=== PATIENT | female | born 1945 | race Caucasian/White ===

== ENCOUNTER 2023-03-17 15:16 | Emergency (ER) | payer MEDICARE, SELFPAY ==
[2023-03-17] VITALS (29 sets, daily range): BP systolic 142–215; BP diastolic 79–91; PULSE 64–89; RESP 13–26; TEMP 36.6; O2SAT 97–99; BMI 30.5
--- NOTE | 2023-03-17 15:42 | ED_ITS ---
Documented by User: Victoria Estrella MD 03/18/23 07:24 HPI - General Adult General Chief complaint: Headache Stated complaint: HEADACHE Time Seen by Provider: 03/17/23 15:42 Source: patient Mode of arrival: ambulance Limitations: no limitations Related Data Home Medications Medication Instructions Recorded Confirmed allopurinol 300 mg tablet 300 mg PO DAILY 03/17/23 03/17/23 atorvastatin 80 mg tablet 80 mg PO DAILY 03/17/23 03/17/23 carvedilol 25 mg tablet 25 mg PO Q12H 03/17/23 03/17/23 furosemide 20 mg tablet 20 mg PO DAILY 03/17/23 03/17/23 insulin 50 units subcut BID 03/17/23 03/17/23 insulin aspart U-100 100 unit/mL 12 unit subcut DAILY 03/17/23 03/17/23 (3 mL) subcutaneous pen (Novolog FlexPen U-100 Insulin aspart) levothyroxine 125 mcg tablet 125 mcg PO DAILY 03/17/23 03/17/23 liothyronine 5 mcg tablet 5 mcg PO BID 03/17/23 03/17/23 magnesium oxide 400 mg (241.3 mg 400 mg PO TID 03/17/23 03/17/23 magnesium) tablet pantoprazole 40 mg tablet,delayed 40 mg PO BID 03/17/23 03/17/23 release phenazopyridine 200 mg tablet 200 mg PO BID 03/17/23 03/17/23 Previous Rx's Medication Instructions Recorded hydrochlorothiazide 25 mg tablet 25 mg PO DAILY #10 tabs 03/17/23 Allergies Allergy/AdvReac Type Severity Reaction Status Date / Time amoxicillin [From Augmentin] Allergy Rash Verified 03/17/23 16:03 clavulanic acid Allergy Rash Verified 03/17/23 16:03 [From Augmentin] sulfamethoxazole Allergy Rash Verified 03/17/23 16:03 [From Bactrim] trimethoprim [From Bactrim] Allergy Rash Verified 03/17/23 16:03 NORVASC Allergy Unknown Uncoded 03/17/23 16:03 CT dye Allergy Unconscious Uncoded 03/17/23 16:03 PFSH PFSH Social History Smoking status: Former smoker Exam Constitutional Vital Signs - 24 hr 03/17/23 15:36 03/17/23 16:25 03/17/23 16:30 Temperature 98 F Pulse Rate 67 64 Pulse Rate [Monitor] 68 Respiratory Rate 20 17 15 Blood Pressure Blood Pressure [Left Arm] 142/80 H Pulse Oximetry 99 Oxygen Delivery Method Room Air 03/17/23 16:40 03/17/23 16:50 03/17/23 17:00 Temperature Pulse Rate 67 66 67 Pulse Rate [Monitor] Respiratory Rate 13 17 21 Blood Pressure Blood Pressure [Left Arm] Pulse Oximetry Oxygen Delivery Method 03/17/23 17:10 03/17/23 17:20 03/17/23 17:30 Temperature Pulse Rate 68 66 68 Pulse Rate [Monitor] Respiratory Rate 17 20 14 Blood Pressure Blood Pressure [Left Arm] Pulse Oximetry Oxygen Delivery Method 03/17/23 17:40 03/17/23 17:50 03/17/23 18:00 Temperature Pulse Rate 72 89 77 Pulse Rate [Monitor] Respiratory Rate 26 H 18 26 H Blood Pressure Blood Pressure [Left Arm] Pulse Oximetry 98 97 Oxygen Delivery Method 03/17/23 18:10 03/17/23 20:20 03/17/23 18:20 Temperature Pulse Rate 72 77 Pulse Rate [Monitor] Respiratory Rate 21 17 Blood Pressure 190/86 H Blood Pressure [Left Arm] Pulse Oximetry 97 97 Oxygen Delivery Method 03/17/23 18:30 03/17/23 18:31 03/17/23 19:01 Temperature Pulse Rate 77 78 78 Pulse Rate [Monitor] Respiratory Rate 17 16 18 Blood Pressure 215/79 H 200/91 H Blood Pressure [Left Arm] Pulse Oximetry 97 98 97 Oxygen Delivery Method 03/17/23 19:31 03/17/23 20:02 03/17/23 20:10 Temperature Pulse Rate 72 73 71 Pulse Rate [Monitor] Respiratory Rate 16 18 13 Blood Pressure 204/83 H Blood Pressure [Left Arm] Pulse Oximetry Oxygen Delivery Method 03/17/23 21:33 03/17/23 20:20 03/17/23 20:30 Temperature Pulse Rate 70 68 Pulse Rate [Monitor] Respiratory Rate 18 14 Blood Pressure 178/80 H Blood Pressure [Left Arm] Pulse Oximetry Oxygen Delivery Method 03/17/23 20:40 03/17/23 20:50 03/17/23 21:00 Temperature Pulse Rate 68 67 70 Pulse Rate [Monitor] Respiratory Rate 14 14 13 Blood Pressure Blood Pressure [Left Arm] Pulse Oximetry Oxygen Delivery Method 03/17/23 21:10 03/17/23 21:20 03/17/23 21:30 Temperature Pulse Rate 68 68 70 Pulse Rate [Monitor] Respiratory Rate 16 17 15 Blood Pressure Blood Pressure [Left Arm] Pulse Oximetry Oxygen Delivery Method Course Vital Signs Vital signs: Vital Signs Temperature 98 F 03/17/23 15:36 Pulse Rate 68 03/17/23 15:36 Respiratory Rate 20 03/17/23 15:36 Blood Pressure 142/80 H 03/17/23 15:36 Pulse Oximetry 99 03/17/23 15:36 Oxygen Delivery Method Room Air 03/17/23 15:36 Temperature 98 F 03/17/23 15:36 Pulse Rate 70 03/17/23 21:30 Respiratory Rate 15 03/17/23 21:30 Blood Pressure 178/80 H 03/17/23 21:33 Pulse Oximetry 97 03/17/23 19:01 Oxygen Delivery Method Room Air 03/17/23 15:36 Medical Decision Making Lab Data Labs: Lab Results 03/17/23 03/17/23 03/17/23 Range/Units 16:24 17:00 17:43 WBC 6.0 (4.0-11.0) 10^3/uL RBC 3.05 L (4.20-5.40) 10^6/uL Hgb 9.6 L (12.0-16.0) g/dL Hct 28.8 L (36.0-48.0) % MCV 94.4 (81.0-99.0) fL MCH 31.5 (26.7-34.0) pg MCHC 33.3 (29.9-35.2) g/dL RDW 15.8 H (11.0-15.0) % Plt Count 209 (150-450) 10^3/uL MPV 9.6 (9.5-13.5) fL Neut % (Auto) 52.7 (43.0-75.0) % Lymph % (Auto) 32.6 (20.5-60.0) % Webb % (Auto) 11.2 (1.7-12.0) % Eos % (Auto) 2.7 (0.9-7.0) % Baso % (Auto) 0.5 (0.2-2.0) % Neut # (Auto) 3.2 (1.4-6.5) 10^3/uL Lymph # (Auto) 2.0 (1.2-3.8) 10^3/uL Webb # (Auto) 0.7 (0.3-0.8) 10^3/uL Eos # (Auto) 0.2 (0.0-0.7) 10^3/uL Baso # (Auto) 0.0 (0.0-0.1) 10^3/uL Abs Immat Gran (auto) 0.02 (0.00-0.03) 10^3/uL Imm/Tot Granulo (auto) 0.3 (0.0-0.5) % ESR 29 (<=30) mm/hr Sodium 136 (136-145) mmol/L Potassium 5.6 H (3.5-5.1) mmol/L Chloride 104 (98-107) mmol/L Carbon Dioxide 23.9 (21.0-32.0) mmol/L Anion Gap 13.7 BUN 56.0 H (7.0-18.0) mg/dL Creatinine 2.49 H (0.55-1.02) mg/dL Est GFR ( Amer) 23 L (>=60) Est GFR (Non-Af Amer) 19 L (>=60) BUN/Creatinine Ratio 22.5 Glucose 112 H (74-106) mg/dL Calcium 9.6 (8.5-10.1) mg/dL Total Bilirubin 0.5 (0.2-1.0) mg/dL AST 17 (15-37) U/L ALT 30 (14-59) U/L Alkaline Phosphatase 88 (46-116) U/L C-Reactive Protein <2.0 H (<=1.0) mg/dL Total Protein 7.8 (6.4-8.2) g/dL Albumin 3.9 (3.4-5.0) g/dL Globulin 3.9 g/dL Albumin/Globulin Ratio 1.0 Urine Color Yellow (YELLOW) Urine Clarity Clear (CLEAR) Urine pH 5.5 (5.0-9.0) Ur Specific [place] 1.020 (1.005-1.025) Urine Protein Negative (NEG/TRACE) mg/dL Urine Glucose (UA) Negative (NEGATIVE) mg/dL Urine Ketones Negative (NEGATIVE) mg/dL Urine Occult Blood Negative (NEGATIVE) Urine Nitrite Negative (NEGATIVE) Urine Bilirubin Negative (NEGATIVE) Urine Urobilinogen 0.2 (0.2-1.0) EU/dL Ur Leukocyte Esterase Negative (NEGATIVE) POC Glucose 101 (74-106) mg/dL 03/17/23 03/17/23 03/17/23 Range/Units 20:17 21:00 21:31 WBC (4.0-11.0) 10^3/uL RBC (4.20-5.40) 10^6/uL Hgb (12.0-16.0) g/dL Hct (36.0-48.0) % MCV (81.0-99.0) fL MCH (26.7-34.0) pg MCHC (29.9-35.2) g/dL RDW (11.0-15.0) % Plt Count (150-450) 10^3/uL MPV (9.5-13.5) fL Neut % (Auto) (43.0-75.0) % Lymph % (Auto) (20.5-60.0) % Webb % (Auto) (1.7-12.0) % Eos % (Auto) (0.9-7.0) % Baso % (Auto) (0.2-2.0) % Neut # (Auto) (1.4-6.5) 10^3/uL Lymph # (Auto) (1.2-3.8) 10^3/uL Webb # (Auto) (0.3-0.8) 10^3/uL Eos # (Auto) (0.0-0.7) 10^3/uL Baso # (Auto) (0.0-0.1) 10^3/uL Abs Immat Gran (auto) (0.00-0.03) 10^3/uL Imm/Tot Granulo (auto) (0.0-0.5) % ESR (<=30) mm/hr Sodium (136-145) mmol/L Potassium 4.9 (3.5-5.1) mmol/L Chloride (98-107) mmol/L Carbon Dioxide (21.0-32.0) mmol/L Anion Gap BUN 52.0 H (7.0-18.0) mg/dL Creatinine 2.49 H (0.55-1.02) mg/dL Est GFR ( Amer) 23 L (>=60) Est GFR (Non-Af Amer) 19 L (>=60) BUN/Creatinine Ratio Glucose (74-106) mg/dL Calcium (8.5-10.1) mg/dL Total Bilirubin (0.2-1.0) mg/dL AST (15-37) U/L ALT (14-59) U/L Alkaline Phosphatase (46-116) U/L C-Reactive Protein (<=1.0) mg/dL Total Protein (6.4-8.2) g/dL Albumin (3.4-5.0) g/dL Globulin g/dL Albumin/Globulin Ratio Urine Color (YELLOW) Urine Clarity (CLEAR) Urine pH (5.0-9.0) Ur Specific [place] (1.005-1.025) Urine Protein (NEG/TRACE) mg/dL Urine Glucose (UA) (NEGATIVE) mg/dL Urine Ketones (NEGATIVE) mg/dL Urine Occult Blood (NEGATIVE) Urine Nitrite (NEGATIVE) Urine Bilirubin (NEGATIVE) Urine Urobilinogen (0.2-1.0) EU/dL Ur Leukocyte Esterase (NEGATIVE) POC Glucose 200 H 167 H (74-106) mg/dL Discharge Plan Discharge Chief Complaint: Headache Clinical Impression: Acute kidney failure, Headache, Acute hyperkalemia Patient Disposition: Home, Self-Care Time of Disposition Decision: 21:45 Condition: Good Mode of Transportation: Private Vehicle Prescriptions / Home Meds: New hydrochlorothiazide 25 mg tablet 25 mg PO DAILY Qty: 10 0RF Discontinued hydrochlorothiazide 12.5 mg tablet 12.5 mg PO DAILY lisinopril 10 mg tablet 10 mg PO DAILY No Action allopurinol 300 mg tablet 300 mg PO DAILY atorvastatin 80 mg tablet 80 mg PO DAILY carvedilol 25 mg tablet 25 mg PO Q12H furosemide 20 mg tablet 20 mg PO DAILY insulin aspart U-100 [Novolog FlexPen U-100 Insulin] 100 unit/mL (3 mL) insulin pen 12 unit SUBCUT DAILY Rx Instructions: 12 units am, 16units at lunch and 22 units in pm insulin 50 units 50 units subcut BID Rx Instructions: 50 units BID levothyroxine 125 mcg tablet 125 mcg PO DAILY liothyronine 5 mcg tablet 5 mcg PO BID magnesium oxide 400 mg (241.3 mg magnesium) tablet 400 mg PO TID pantoprazole 40 mg tablet,delayed release (DR/EC) 40 mg PO BID phenazopyridine 200 mg tablet 200 mg PO BID Instructions: Acute Kidney Injury (DC), Hyperkalemia (ED) Stand Alone Forms: Portal Instructions Referrals: Merrick Rubi MD [Primary Care Provider] - As soon as possible Discharge Date/Time: 03/17/23 22:01 Documented by User: Fozia Montgomery MD 03/18/23 01:58 HPI - General Adult General Chief complaint: Headache Stated complaint: HEADACHE Time Seen by Provider: 03/17/23 15:42 Related Data Home Medications Medication Instructions Recorded Confirmed allopurinol 300 mg tablet 300 mg PO DAILY 03/17/23 03/17/23 atorvastatin 80 mg tablet 80 mg PO DAILY 03/17/23 03/17/23 carvedilol 25 mg tablet 25 mg PO Q12H 03/17/23 03/17/23 furosemide 20 mg tablet 20 mg PO DAILY 03/17/23 03/17/23 insulin 50 units subcut BID 03/17/23 03/17/23 insulin aspart U-100 100 unit/mL 12 unit subcut DAILY 03/17/23 03/17/23 (3 mL) subcutaneous pen (Novolog FlexPen U-100 Insulin aspart) levothyroxine 125 mcg tablet 125 mcg PO DAILY 03/17/23 03/17/23 liothyronine 5 mcg tablet 5 mcg PO BID 03/17/23 03/17/23 magnesium oxide 400 mg (241.3 mg 400 mg PO TID 03/17/23 03/17/23 magnesium) tablet pantoprazole 40 mg tablet,delayed 40 mg PO BID 03/17/23 03/17/23 release phenazopyridine 200 mg tablet 200 mg PO BID 03/17/23 03/17/23 Previous Rx's Medication Instructions Recorded hydrochlorothiazide 25 mg tablet 25 mg PO DAILY #10 tabs 03/17/23 Allergies Allergy/AdvReac Type Severity Reaction Status Date / Time amoxicillin [From Augmentin] Allergy Rash Verified 03/17/23 16:03 clavulanic acid Allergy Rash Verified 03/17/23 16:03 [From Augmentin] sulfamethoxazole Allergy Rash Verified 03/17/23 16:03 [From Bactrim] trimethoprim [From Bactrim] Allergy Rash Verified 03/17/23 16:03 NORVASC Allergy Unknown Uncoded 03/17/23 16:03 CT dye Allergy Unconscious Uncoded 03/17/23 16:03 PFSH PFSH Social History Smoking status: Former smoker Exam Constitutional Vital Signs - 24 hr 03/17/23 15:36 03/17/23 16:25 03/17/23 16:30 Temperature 98 F Pulse Rate 67 64 Pulse Rate [Monitor] 68 Respiratory Rate 20 17 15 Blood Pressure Blood Pressure [Left Arm] 142/80 H Pulse Oximetry 99 Oxygen Delivery Method Room Air 03/17/23 16:40 03/17/23 16:50 03/17/23 17:00 Temperature Pulse Rate 67 66 67 Pulse Rate [Monitor] Respiratory Rate 13 17 21 Blood Pressure Blood Pressure [Left Arm] Pulse Oximetry Oxygen Delivery Method 03/17/23 17:10 03/17/23 17:20 03/17/23 17:30 Temperature Pulse Rate 68 66 68 Pulse Rate [Monitor] Respiratory Rate 17 20 14 Blood Pressure Blood Pressure [Left Arm] Pulse Oximetry Oxygen Delivery Method 03/17/23 17:40 03/17/23 17:50 03/17/23 18:00 Temperature Pulse Rate 72 89 77 Pulse Rate [Monitor] Respiratory Rate 26 H 18 26 H Blood Pressure Blood Pressure [Left Arm] Pulse Oximetry 98 97 Oxygen Delivery Method 03/17/23 18:10 03/17/23 20:20 03/17/23 18:20 Temperature Pulse Rate 72 77 Pulse Rate [Monitor] Respiratory Rate 21 17 Blood Pressure 190/86 H Blood Pressure [Left Arm] Pulse Oximetry 97 97 Oxygen Delivery Method 03/17/23 18:30 03/17/23 18:31 03/17/23 19:01 Temperature Pulse Rate 77 78 78 Pulse Rate [Monitor] Respiratory Rate 17 16 18 Blood Pressure 215/79 H 200/91 H Blood Pressure [Left Arm] Pulse Oximetry 97 98 97 Oxygen Delivery Method 03/17/23 19:31 03/17/23 20:02 03/17/23 20:10 Temperature Pulse Rate 72 73 71 Pulse Rate [Monitor] Respiratory Rate 16 18 13 Blood Pressure 204/83 H Blood Pressure [Left Arm] Pulse Oximetry Oxygen Delivery Method 03/17/23 21:33 03/17/23 20:20 03/17/23 20:30 Temperature Pulse Rate 70 68 Pulse Rate [Monitor] Respiratory Rate 18 14 Blood Pressure 178/80 H Blood Pressure [Left Arm] Pulse Oximetry Oxygen Delivery Method 03/17/23 20:40 03/17/23 20:50 03/17/23 21:00 Temperature Pulse Rate 68 67 70 Pulse Rate [Monitor] Respiratory Rate 14 14 13 Blood Pressure Blood Pressure [Left Arm] Pulse Oximetry Oxygen Delivery Method 03/17/23 21:10 03/17/23 21:20 03/17/23 21:30 Temperature Pulse Rate 68 68 70 Pulse Rate [Monitor] Respiratory Rate 16 17 15 Blood Pressure Blood Pressure [Left Arm] Pulse Oximetry Oxygen Delivery Method Course Vital Signs Vital signs: Vital Signs Temperature 98 F 03/17/23 15:36 Pulse Rate 68 03/17/23 15:36 Respiratory Rate 20 03/17/23 15:36 Blood Pressure 142/80 H 03/17/23 15:36 Pulse Oximetry 99 03/17/23 15:36 Oxygen Delivery Method Room Air 03/17/23 15:36 Temperature 98 F 03/17/23 15:36 Pulse Rate 70 03/17/23 21:30 Respiratory Rate 15 03/17/23 21:30 Blood Pressure 178/80 H 03/17/23 21:33 Pulse Oximetry 97 03/17/23 19:01 Oxygen Delivery Method Room Air 03/17/23 15:36 Medical Decision Making [facility] Narrative Medical decision making narrative: Dr Montgomery : pt care trasnferred to me at 7am from Dr Estrella pt potassium improved to 4.9 as well as her BP creat is still 2.49 pt lisinopril stopped and HTZ doubled to 25 mg po daily pt will measure her BP daily and keep a tract of it and will follow up with Dr Rubi within a week for creat and potassium check pt will come back today and continued symptoms The patient is to followup with primary care physician in next 2-3 days or to return to the emergency department should any of the signs or symptoms worsen or new symptoms develop. The patient agrees with the following Diagnosis and Treatment plan and the patient will be discharged home. At this time the patient is without objective evidence of an acute process requiring hospitalization or inpatient management. The patient has remained hemodynamically stable. No additional indication for emergent studies at this time. I answered all questions. Discussed discharge instructions including standard anticipatory guidance and what should prompt a return to the emergency department, including if they get worse are not getting better or develops any new or concerning symptoms. I've given them specific time frame in which to follow-up, and who to follow-up with. The patient demonstrates understanding. Patient is nontoxic and stable for discharge with outpatient follow-up. Lab Data Labs: Lab Results 03/17/23 03/17/23 03/17/23 Range/Units 16:24 17:00 17:43 WBC 6.0 (4.0-11.0) 10^3/uL RBC 3.05 L (4.20-5.40) 10^6/uL Hgb 9.6 L (12.0-16.0) g/dL Hct 28.8 L (36.0-48.0) % MCV 94.4 (81.0-99.0) fL MCH 31.5 (26.7-34.0) pg MCHC 33.3 (29.9-35.2) g/dL RDW 15.8 H (11.0-15.0) % Plt Count 209 (150-450) 10^3/uL MPV 9.6 (9.5-13.5) fL Neut % (Auto) 52.7 (43.0-75.0) % Lymph % (Auto) 32.6 (20.5-60.0) % Webb % (Auto) 11.2 (1.7-12.0) % Eos % (Auto) 2.7 (0.9-7.0) % Baso % (Auto) 0.5 (0.2-2.0) % Neut # (Auto) 3.2 (1.4-6.5) 10^3/uL Lymph # (Auto) 2.0 (1.2-3.8) 10^3/uL Webb # (Auto) 0.7 (0.3-0.8) 10^3/uL Eos # (Auto) 0.2 (0.0-0.7) 10^3/uL Baso # (Auto) 0.0 (0.0-0.1) 10^3/uL Abs Immat Gran (auto) 0.02 (0.00-0.03) 10^3/uL Imm/Tot Granulo (auto) 0.3 (0.0-0.5) % ESR 29 (<=30) mm/hr Sodium 136 (136-145) mmol/L Potassium 5.6 H (3.5-5.1) mmol/L Chloride 104 (98-107) mmol/L Carbon Dioxide 23.9 (21.0-32.0) mmol/L Anion Gap 13.7 BUN 56.0 H (7.0-18.0) mg/dL Creatinine 2.49 H (0.55-1.02) mg/dL Est GFR ( Amer) 23 L (>=60) Est GFR (Non-Af Amer) 19 L (>=60) BUN/Creatinine Ratio 22.5 Glucose 112 H (74-106) mg/dL Calcium 9.6 (8.5-10.1) mg/dL Total Bilirubin 0.5 (0.2-1.0) mg/dL AST 17 (15-37) U/L ALT 30 (14-59) U/L Alkaline Phosphatase 88 (46-116) U/L C-Reactive Protein <2.0 H (<=1.0) mg/dL Total Protein 7.8 (6.4-8.2) g/dL Albumin 3.9 (3.4-5.0) g/dL Globulin 3.9 g/dL Albumin/Globulin Ratio 1.0 Urine Color Yellow (YELLOW) Urine Clarity Clear (CLEAR) Urine pH 5.5 (5.0-9.0) Ur Specific [place] 1.020 (1.005-1.025) Urine Protein Negative (NEG/TRACE) mg/dL Urine Glucose (UA) Negative (NEGATIVE) mg/dL Urine Ketones Negative (NEGATIVE) mg/dL Urine Occult Blood Negative (NEGATIVE) Urine Nitrite Negative (NEGATIVE) Urine Bilirubin Negative (NEGATIVE) Urine Urobilinogen 0.2 (0.2-1.0) EU/dL Ur Leukocyte Esterase Negative (NEGATIVE) POC Glucose 101 (74-106) mg/dL 03/17/23 03/17/23 03/17/23 Range/Units 20:17 21:00 21:31 WBC (4.0-11.0) 10^3/uL RBC (4.20-5.40) 10^6/uL Hgb (12.0-16.0) g/dL Hct (36.0-48.0) % MCV (81.0-99.0) fL MCH (26.7-34.0) pg MCHC (29.9-35.2) g/dL RDW (11.0-15.0) % Plt Count (150-450) 10^3/uL MPV (9.5-13.5) fL Neut % (Auto) (43.0-75.0) % Lymph % (Auto) (20.5-60.0) % Webb % (Auto) (1.7-12.0) % Eos % (Auto) (0.9-7.0) % Baso % (Auto) (0.2-2.0) % Neut # (Auto) (1.4-6.5) 10^3/uL Lymph # (Auto) (1.2-3.8) 10^3/uL Webb # (Auto) (0.3-0.8) 10^3/uL Eos # (Auto) (0.0-0.7) 10^3/uL Baso # (Auto) (0.0-0.1) 10^3/uL Abs Immat Gran (auto) (0.00-0.03) 10^3/uL Imm/Tot Granulo (auto) (0.0-0.5) % ESR (<=30) mm/hr Sodium (136-145) mmol/L Potassium 4.9 (3.5-5.1) mmol/L Chloride (98-107) mmol/L Carbon Dioxide (21.0-32.0) mmol/L Anion Gap BUN 52.0 H (7.0-18.0) mg/dL Creatinine 2.49 H (0.55-1.02) mg/dL Est GFR ( Amer) 23 L (>=60) Est GFR (Non-Af Amer) 19 L (>=60) BUN/Creatinine Ratio Glucose (74-106) mg/dL Calcium (8.5-10.1) mg/dL Total Bilirubin (0.2-1.0) mg/dL AST (15-37) U/L ALT (14-59) U/L Alkaline Phosphatase (46-116) U/L C-Reactive Protein (<=1.0) mg/dL Total Protein (6.4-8.2) g/dL Albumin (3.4-5.0) g/dL Globulin g/dL Albumin/Globulin Ratio Urine Color (YELLOW) Urine Clarity (CLEAR) Urine pH (5.0-9.0) Ur Specific [place] (1.005-1.025) Urine Protein (NEG/TRACE) mg/dL Urine Glucose (UA) (NEGATIVE) mg/dL Urine Ketones (NEGATIVE) mg/dL Urine Occult Blood (NEGATIVE) Urine Nitrite (NEGATIVE) Urine Bilirubin (NEGATIVE) Urine Urobilinogen (0.2-1.0) EU/dL Ur Leukocyte Esterase (NEGATIVE) POC Glucose 200 H 167 H (74-106) mg/dL Discharge Plan Discharge Chief Complaint: Headache Clinical Impression: Acute kidney failure, Headache, Acute hyperkalemia Patient Disposition: Home, Self-Care Time of Disposition Decision: 21:45 Condition: Good Mode of Transportation: Private Vehicle Prescriptions / Home Meds: New hydrochlorothiazide 25 mg tablet 25 mg PO DAILY Qty: 10 0RF Discontinued hydrochlorothiazide 12.5 mg tablet 12.5 mg PO DAILY lisinopril 10 mg tablet 10 mg PO DAILY No Action allopurinol 300 mg tablet 300 mg PO DAILY atorvastatin 80 mg tablet 80 mg PO DAILY carvedilol 25 mg tablet 25 mg PO Q12H furosemide 20 mg tablet 20 mg PO DAILY insulin aspart U-100 [Novolog FlexPen U-100 Insulin] 100 unit/mL (3 mL) insulin pen 12 unit SUBCUT DAILY Rx Instructions: 12 units am, 16units at lunch and 22 units in pm insulin 50 units 50 units subcut BID Rx Instructions: 50 units BID levothyroxine 125 mcg tablet 125 mcg PO DAILY liothyronine 5 mcg tablet 5 mcg PO BID magnesium oxide 400 mg (241.3 mg magnesium) tablet 400 mg PO TID pantoprazole 40 mg tablet,delayed release (DR/EC) 40 mg PO BID phenazopyridine 200 mg tablet 200 mg PO BID Instructions: Acute Kidney Injury (DC), Hyperkalemia (ED) Stand Alone Forms: Portal Instructions Referrals: Merrick Rubi MD [Primary Care Provider] - As soon as possible Discharge Date/Time: 03/17/23 22:01
--- NOTE | 2023-03-17 16:09 | CT_ITS ---
[place] [id number] Patient Name: KYLAH BERGER MRN: [id number] date: 1945 Sex: F Assigned Patient Location: ER Current Patient Location: ER Accession/Order Number: [id number] Exam Date: 03/17/2023 16:43 Report Date: 03/17/2023 17:12 At the request of: VERNA GUAJARDO Procedure: CT head/brain wo con EXAMINATION: CT head/brain wo con, 03/17/2023 4:43 PM EDT HISTORY: Pain COMPARISON: None. TECHNIQUE: CT scan of the head was performed without IV contrast. CT dose reduction technique was used, including Automated Exposure Control. FINDINGS: BRAIN PARENCHYMA/CSF SPACES: Ventricles are normal in size for age. There is no hemorrhage, mass effect or midline shift. Mild low attenuation in the white matter consistent with chronic microvascular ischemia. PARANASAL SINUSES: Clear. SKULL BASE AND CALVARIUM: Normal. EXTRACRANIAL SOFT TISSUES: Normal. IMPRESSION: No acute intracranial findings. Electronically authenticated by: SINDI SUNSHINE Date: 03/17/2023 17:12
--- NOTE | 2023-03-17 16:10 | ECG_ITS ---
[facility] Test Date: 2023-03-17 Pat Name: KYLAH BERGER Department: Room: - Gender: Female [employer]: : 1945 Requested By: DHRUV GUTIERRES Order Number: [id number] Reading MD: DHRUV GUTIERRES Measurements Intervals [place] Rate: 65 P: 57 ID: [id number] QRS: 25 QRSD: 86 T: 70 QT: 408 QTc: 420 Interpretive Statements 1100 Sinus rhythm 4068 Nonspecific [place] abnormality 9130 borderline ECG No previous ECG available for comparison Electronically Signed On 03-18-2023 6:23:33 EDT by DHRUV GUTIERRES
[2023-03-17 16:39] LABS: Basophils Percent Auto 0.5 % (0.2-2.0); Eosinophils Absolute Auto 0.2 10^3/uL (0.0-0.7); Eosinophils Percent Auto 2.7 % (0.9-7.0); Hematocrit 28.8 % (36.0-48.0); Hemoglobin 9.6 g/dL (12.0-16.0); Immature Granulocytes Abs Auto 0.02 10^3/uL (0.00-0.03); Immature Granulocytes Pct Auto 0.3 % (0.0-0.5); Lymphocytes Percent Auto 32.6 % (20.5-60.0); Mean Corpuscular HGB Conc 33.3 g/dL (29.9-35.2); Mean Corpuscular Hemoglobin 31.5 pg (26.7-34.0); Mean Corpuscular Volume 94.4 fL (81.0-99.0); Mean Platelet Volume 9.6 fL (9.5-13.5); Monocytes Absolute Auto 0.7 10^3/uL (0.3-0.8); Monocytes Percent Auto 11.2 % (1.7-12.0); Neutrophils Absolute Auto 3.2 10^3/uL (1.4-6.5); Neutrophils Percent Auto 52.7 % (43.0-75.0); Platelet Count 209 10^3/uL (150-450); Red Blood Count 3.05 10^6/uL (4.20-5.40); Red Cell Distribution Width 15.8 % (11.0-15.0)
[2023-03-17 16:49] LABS: Erythrocyte Sedimentation Rate 29 mm/hr (<=30)
[2023-03-17 16:53] LABS: Alanine Aminotransferase 30 U/L (14-59); Albumin Level 3.9 g/dL (3.4-5.0); Alkaline Phosphatase 88 U/L (46-116); Anion Gap 13.7; Aspartate Amino Transferase 17 U/L (15-37); BUN Creatinine Ratio 22.5; Bilirubin Total 0.5 mg/dL (0.2-1.0); Calcium 9.6 mg/dL (8.5-10.1); Carbon Dioxide 23.9 mmol/L (21.0-32.0); Chloride 104 mmol/L (98-107); Estimated GFR (African America 23 (>=60); Estimated GFR (Non-African Ame 19 (>=60); Globulin 3.9 g/dL; Glucose 112 mg/dL (74-106); Potassium 5.6 mmol/L (3.5-5.1); Sodium 136 mmol/L (136-145); Total Protein 7.8 g/dL (6.4-8.2)
[2023-03-17 16:55] LABS: C Reactive Protein <2.0 mg/dL (<=1.0)
[2023-03-17] MEDS: 0.9 % SODIUM CHLORIDE 1,000 ML 999 ML IV (17:00)
--- NOTE | 2023-03-17 17:36 | PC.NURSE ---
pt rates ZHONG a 06/16 and notified
[2023-03-17 17:46] LABS: Glucometer 101 mg/dL (74-106)
[2023-03-17 17:49] LABS: Bilirubin Urine NEGATIVE (NEGATIVE); Blood Urine NEGATIVE (NEGATIVE); Clarity Urine CLEAR (CLEAR); Color Urine YELLOW (YELLOW); Glucose Urine UA NEGATIVE (NEGATIVE); Ketones Urine NEGATIVE (NEGATIVE); Leukocyte Esterase Urine NEGATIVE (NEGATIVE); Nitrite Urine NEGATIVE (NEGATIVE); Protein Urine NEGATIVE (NEG/TRACE); Urobilinogen Urine 0.2 EU/dL (0.2-1.0); pH Urine 5.5 (5.0-9.0)
[2023-03-17 18:01] LABS: Urine Microscopic Indicated NO
[2023-03-17] MEDS: INSULIN REGULAR 300 UNITS/3 ML 10 UNIT INJ (19:19)
[2023-03-17] MEDS: DEXTROSE 50 %-WATER 25 GM/50 ML SYRINGE IV (19:19)
[2023-03-17] MEDS: DEXAMETHASONE SODIUM PHOSPHATE 10 MG/ML VIAL IV (19:19)
[2023-03-17] MEDS: ACETAMINOPHEN 500 MG TABLET 1000 MG PO (19:19)
[2023-03-17] MEDS: SODIUM POLYSTYRENE SULFON/SORB 15 GM/60 ML ORAL.SUSP 30 GM PO (19:39)
[2023-03-17 20:19] LABS: Glucometer 200 mg/dL (74-106)
[2023-03-17 21:23] LABS: Potassium 4.9 mmol/L (3.5-5.1)
[2023-03-17 21:33] LABS: Glucometer 167 mg/dL (74-106)
[2023-03-17 21:45] LABS: Estimated GFR (African America 23 (>=60); Estimated GFR (Non-African Ame 19 (>=60)
--- NOTE | 2023-04-19 09:47 | ED.GENADUL1 ---
HPI - General Adult General Chief complaint: Headache Stated complaint: HEADACHE Time Seen by Provider: 03/17/23 15:42 Source: patient Mode of arrival: ambulance Limitations: no limitations History of Present Illness HPI narrative: Patient presents to the emergency department complaining of headache. Patient states that she woke up this morning with right ear pain and headache. He states the pain has moved from the ear to the right face and temporal area. Pain is sharp, constant and aching. Mother was headache of her life time. She's had headaches in the past. It has gradually been getting worse throughout the day. Did not present like a thunderclap. Patient has a history of chronic kidney disease. She isn't diabetic. She states this happens when her blood pressure goes up. She states that she has taken all of her antihypertensive medications. She states she has a dry mouth and feels like she is dehydrated. She denies any visual disturbance, or speech difficulties. She denies any paresthesias, weakness. She denies any trauma. She denies any fever, chills, or cough. She denies any right, or sore throat. Denies any chest pain, or shortness of breath. She denies any vomiting he states she's had diarrhea. Denies any abdominal pain, flank pain, hematuria, dysuria. Related Data Home Medications Medication Instructions Recorded Confirmed allopurinol 300 mg tablet 300 mg PO DAILY 03/17/23 03/17/23 atorvastatin 80 mg tablet 80 mg PO DAILY 03/17/23 03/17/23 carvedilol 25 mg tablet 25 mg PO Q12H 03/17/23 03/17/23 furosemide 20 mg tablet 20 mg PO DAILY 03/17/23 03/17/23 insulin 50 units subcut BID 03/17/23 03/17/23 insulin aspart U-100 100 unit/mL 12 unit subcut DAILY 03/17/23 03/17/23 (3 mL) subcutaneous pen (Novolog FlexPen U-100 Insulin aspart) levothyroxine 125 mcg tablet 125 mcg PO DAILY 03/17/23 03/17/23 liothyronine 5 mcg tablet 5 mcg PO BID 03/17/23 03/17/23 magnesium oxide 400 mg (241.3 mg 400 mg PO TID 03/17/23 03/17/23 magnesium) tablet pantoprazole 40 mg tablet,delayed 40 mg PO BID 03/17/23 03/17/23 release phenazopyridine 200 mg tablet 200 mg PO BID 03/17/23 03/17/23 Previous Rx's Medication Instructions Recorded hydrochlorothiazide 25 mg tablet 25 mg PO DAILY #10 tabs 03/17/23 Allergies Allergy/AdvReac Type Severity Reaction Status Date / Time amoxicillin [From Augmentin] Allergy Rash Verified 03/17/23 16:03 clavulanic acid Allergy Rash Verified 03/17/23 16:03 [From Augmentin] sulfamethoxazole Allergy Rash Verified 03/17/23 16:03 [From Bactrim] trimethoprim [From Bactrim] Allergy Rash Verified 03/17/23 16:03 NORVASC Allergy Unknown Uncoded 03/17/23 16:03 CT dye Allergy Unconscious Uncoded 03/17/23 16:03 Review of Systems ROS Status of ROS 10 or more systems reviewed and unremarkable except as noted in history and below [facility] Social History Smoking status: Former smoker Exam Narrative Exam Narrative: Nurses notes and vital signs reviewed and patient is not hypoxic. General: Nontoxic, Well-appearing and in no apparent distress. Skin: Warm, dry, no pallor noted. No Rash Head: Normocephalic, atraumatic.No temporal tenderness Neck: Supple, non-tender. Eye: Pupils are equal, round and EOMI. No scleral icterus. Ears, Nose, Mouth, and Throat: TM clear, no posterior oropharynx erythema or nasal mucosal hypertrophy, uvula is mid-line Oral mucosa is dry Cardiovascular: Regular Rate and Rhythm without murmur, gallop or rub. Respiratory: No accessory muscle use or respiratory distress. Lungs are clear to auscultation, no wheezing, rales or rhonchi Chest Wall: no tenderness Back: No midline thoracic or lumbar vertebral tenderness. No CVA tenderness Musculoskeletal: normal ROM, no calf or popliteal tenderness, no lower extremity edema/swelling GI: Abdomen is soft, non-distended. Normal bowel sounds. No masses appreciated. No tenderness to palpation. No rebound, guarding, or rigidity noted. Neurological: A&O x4. No cranial nerve dysfunction observed. No truncal ataxia. Moves all extremities. Psychiatric: Cooperative and interactive. Normal mood and affect. Constitutional Vital Signs, click to edit/add: Last Vital Signs Temp 98 F 03/17/23 15:36 Pulse 70 03/17/23 21:30 Resp 15 03/17/23 21:30 BP 178/80 H 03/17/23 21:33 Pulse Ox 97 03/17/23 19:01 O2 Del Method Room Air 03/17/23 15:36 Course Vital Signs Vital signs: Vital Signs Temperature 98 F 03/17/23 15:36 Pulse Rate 68 03/17/23 15:36 Respiratory Rate 20 03/17/23 15:36 Blood Pressure 142/80 H 03/17/23 15:36 Pulse Oximetry 99 03/17/23 15:36 Oxygen Delivery Method Room Air 03/17/23 15:36 Temperature 98 F 03/17/23 15:36 Pulse Rate 70 03/17/23 21:30 Respiratory Rate 15 03/17/23 21:30 Blood Pressure 178/80 H 03/17/23 21:33 Pulse Oximetry 97 03/17/23 19:01 Oxygen Delivery Method Room Air 03/17/23 15:36 Medical Decision Making MDM Narrative Medical decision making narrative: Patient had an IV established was placed on a monitor. She was given [address] scan was done and is unremarkable. Patient states her headache improved with IV fluids. She is signed out at the end of my shift to Dr. Montgomery at end of my shift waiting final CT scan results from the radiologist, repeat laboratory studies, reevaluation, and disposition. Differential Diagnosis Differential Diagnosis: Cephalgia, dehydration, temporal arteritis, mastoiditis, intracranial hemor Lab Data Labs: Lab Results 03/17/23 03/17/23 03/17/23 Range/Units 16:24 17:00 17:43 WBC 6.0 (4.0-11.0) 10^3/uL RBC 3.05 L (4.20-5.40) 10^6/uL Hgb 9.6 L (12.0-16.0) g/dL Hct 28.8 L (36.0-48.0) % MCV 94.4 (81.0-99.0) fL MCH 31.5 (26.7-34.0) pg MCHC 33.3 (29.9-35.2) g/dL RDW 15.8 H (11.0-15.0) % Plt Count 209 (150-450) 10^3/uL MPV 9.6 (9.5-13.5) fL Neut % (Auto) 52.7 (43.0-75.0) % Lymph % (Auto) 32.6 (20.5-60.0) % [place] % (Auto) 11.2 (1.7-12.0) % Eos % (Auto) 2.7 (0.9-7.0) % Baso % (Auto) 0.5 (0.2-2.0) % Neut # (Auto) 3.2 (1.4-6.5) 10^3/uL Lymph # (Auto) 2.0 (1.2-3.8) 10^3/uL [place] # (Auto) 0.7 (0.3-0.8) 10^3/uL Eos # (Auto) 0.2 (0.0-0.7) 10^3/uL Baso # (Auto) 0.0 (0.0-0.1) 10^3/uL Abs Immat Gran (auto) 0.02 (0.00-0.03) 10^3/uL Imm/Tot Granulo (auto) 0.3 (0.0-0.5) % ESR 29 (<=30) mm/hr Sodium 136 (136-145) mmol/L Potassium 5.6 H (3.5-5.1) mmol/L Chloride 104 (98-107) mmol/L Carbon Dioxide 23.9 (21.0-32.0) mmol/L Anion Gap 13.7 BUN 56.0 H (7.0-18.0) mg/dL Creatinine 2.49 H (0.55-1.02) mg/dL Est GFR ( Amer) 23 L (>=60) Est GFR (Non-Af Amer) 19 L (>=60) BUN/Creatinine Ratio 22.5 Glucose 112 H (74-106) mg/dL Calcium 9.6 (8.5-10.1) mg/dL Total Bilirubin 0.5 (0.2-1.0) mg/dL AST 17 (15-37) U/L ALT 30 (14-59) U/L Alkaline Phosphatase 88 (46-116) U/L C-Reactive Protein <2.0 H (<=1.0) mg/dL Total Protein 7.8 (6.4-8.2) g/dL Albumin 3.9 (3.4-5.0) g/dL Globulin 3.9 g/dL Albumin/Globulin Ratio 1.0 Urine Color Yellow (YELLOW) Urine Clarity Clear (CLEAR) Urine pH 5.5 (5.0-9.0) Ur Specific [place] 1.020 (1.005-1.025) Urine Protein Negative (NEG/TRACE) mg/dL Urine Glucose (UA) Negative (NEGATIVE) mg/dL Urine Ketones Negative (NEGATIVE) mg/dL Urine Occult Blood Negative (NEGATIVE) Urine Nitrite Negative (NEGATIVE) Urine Bilirubin Negative (NEGATIVE) Urine Urobilinogen 0.2 (0.2-1.0) EU/dL Ur Leukocyte Esterase Negative (NEGATIVE) POC Glucose 101 (74-106) mg/dL 03/17/23 03/17/23 03/17/23 Range/Units 20:17 21:00 21:31 WBC (4.0-11.0) 10^3/uL RBC (4.20-5.40) 10^6/uL Hgb (12.0-16.0) g/dL Hct (36.0-48.0) % MCV (81.0-99.0) fL MCH (26.7-34.0) pg MCHC (29.9-35.2) g/dL RDW (11.0-15.0) % Plt Count (150-450) 10^3/uL MPV (9.5-13.5) fL Neut % (Auto) (43.0-75.0) % Lymph % (Auto) (20.5-60.0) % [place] % (Auto) (1.7-12.0) % Eos % (Auto) (0.9-7.0) % Baso % (Auto) (0.2-2.0) % Neut # (Auto) (1.4-6.5) 10^3/uL Lymph # (Auto) (1.2-3.8) 10^3/uL [place] # (Auto) (0.3-0.8) 10^3/uL Eos # (Auto) (0.0-0.7) 10^3/uL Baso # (Auto) (0.0-0.1) 10^3/uL Abs Immat Gran (auto) (0.00-0.03) 10^3/uL Imm/Tot Granulo (auto) (0.0-0.5) % ESR (<=30) mm/hr Sodium (136-145) mmol/L Potassium 4.9 (3.5-5.1) mmol/L Chloride (98-107) mmol/L Carbon Dioxide (21.0-32.0) mmol/L Anion Gap BUN 52.0 H (7.0-18.0) mg/dL Creatinine 2.49 H (0.55-1.02) mg/dL Est GFR ( Amer) 23 L (>=60) Est GFR (Non-Af Amer) 19 L (>=60) BUN/Creatinine Ratio Glucose (74-106) mg/dL Calcium (8.5-10.1) mg/dL Total Bilirubin (0.2-1.0) mg/dL AST (15-37) U/L ALT (14-59) U/L Alkaline Phosphatase (46-116) U/L C-Reactive Protein (<=1.0) mg/dL Total Protein (6.4-8.2) g/dL Albumin (3.4-5.0) g/dL Globulin g/dL Albumin/Globulin Ratio Urine Color (YELLOW) Urine Clarity (CLEAR) Urine pH (5.0-9.0) Ur Specific [place] (1.005-1.025) Urine Protein (NEG/TRACE) mg/dL Urine Glucose (UA) (NEGATIVE) mg/dL Urine Ketones (NEGATIVE) mg/dL Urine Occult Blood (NEGATIVE) Urine Nitrite (NEGATIVE) Urine Bilirubin (NEGATIVE) Urine Urobilinogen (0.2-1.0) EU/dL Ur Leukocyte Esterase (NEGATIVE) POC Glucose 200 H 167 H (74-106) mg/dL Discharge Plan Discharge Chief Complaint: Headache Clinical Impression: Acute kidney failure, Headache, Acute hyperkalemia Patient Disposition: Home, Self-Care Time of Disposition Decision: 21:45 Condition: Good Mode of Transportation: Private Vehicle Prescriptions / Home Meds: New hydrochlorothiazide 25 mg tablet 25 mg PO DAILY Qty: 10 0RF Discontinued hydrochlorothiazide 12.5 mg tablet 12.5 mg PO DAILY lisinopril 10 mg tablet 10 mg PO DAILY No Action allopurinol 300 mg tablet 300 mg PO DAILY atorvastatin 80 mg tablet 80 mg PO DAILY carvedilol 25 mg tablet 25 mg PO Q12H furosemide 20 mg tablet 20 mg PO DAILY insulin aspart U-100 [Novolog FlexPen U-100 Insulin] 100 unit/mL (3 mL) insulin pen 12 unit SUBCUT DAILY Rx Instructions: 12 units am, 16units at lunch and 22 units in pm insulin 50 units 50 units subcut BID Rx Instructions: 50 units BID levothyroxine 125 mcg tablet 125 mcg PO DAILY liothyronine 5 mcg tablet 5 mcg PO BID magnesium oxide 400 mg (241.3 mg magnesium) tablet 400 mg PO TID pantoprazole 40 mg tablet,delayed release (DR/EC) 40 mg PO BID phenazopyridine 200 mg tablet 200 mg PO BID Instructions: Acute Kidney Injury (DC), Hyperkalemia (ED) Stand Alone Forms: Portal Instructions Referrals: Merrick Rubi MD [Primary Care Provider] - As soon as possible Discharge Date/Time: 03/17/23 22:01
== END 2023-03-17 22:01 | disposition home or self-care (01) ==
PROVIDERS: Emergency Provider Emergency Medicine; PCP Family Medicine
DX: R51.9 Headache, unspecified (principal); N17.9 Acute kidney failure, unspecified; E87.5 Hyperkalemia; Z79.4 Long term (current) use of insulin; Z79.890 Hormone replacement therapy; Z79.899 Other long term (current) drug therapy; Z87.891 Personal history of nicotine dependence
CPT/HCPCS: 36415; 36416; 70450; 80053; 81003; 82565; 82948; 84132; 84520; 85025; 85652; 86140; 93005; 96374; 96375; 99285; J1100

== ENCOUNTER 2023-03-25 06:49 | Outpatient (OUT) | payer MEDICARE, SELFPAY ==
[2023-03-25 07:52] LABS: Hematocrit 29.5 % (36.0-48.0); Hemoglobin 9.4 g/dL (12.0-16.0)
[2023-03-25 08:04] LABS: Albumin Level 3.4 g/dL (3.4-5.0); Anion Gap 16.1; BUN Creatinine Ratio 26.3; Calcium 9.2 mg/dL (8.5-10.1); Carbon Dioxide 22.8 mmol/L (21.0-32.0); Chloride 103 mmol/L (98-107); Estimated GFR (African America 30 (>=60); Estimated GFR (Non-African Ame 24 (>=60); Glucose 131 mg/dL (74-106); Magnesium 1.7 mg/dL (1.8-2.4); Phosphorus 5.2 mg/dL (2.6-4.7); Potassium 4.9 mmol/L (3.5-5.1); Sodium 137 mmol/L (136-145)
[2023-03-26 11:12] LABS: PTH, Intact 29 pg/mL (15-65)
== END 2023-03-25 06:50 ==
LOC: LAB 06:52
PROVIDERS: PCP Family Medicine; Visit Provider Internal Medicine
DX: E11.22 Type 2 diabetes mellitus with diabetic chronic kidney disease (principal); N18.4 Chronic kidney disease, stage 4 (severe); D63.1 Anemia in chronic kidney disease; I12.9 Hypertensive chronic kidney disease with stage 1 through stage 4 chronic kidney disease, or unspecified chronic kidney disease; M1A.00X0 Idiopathic chronic gout, unspecified site, without tophus (tophi); N25.81 Secondary hyperparathyroidism of renal origin
CPT/HCPCS: 36415; 80069; 83735; 83970; 85014; 85018

== ENCOUNTER 2023-04-22 06:36 | Outpatient (OUT) | payer MEDICARE, SELFPAY ==
[2023-04-22 06:55] LABS: Hematocrit 29.1 % (36.0-48.0); Hemoglobin 9.7 g/dL (12.0-16.0)
[2023-04-22 08:27] LABS: Albumin Level 3.7 g/dL (3.4-5.0); Anion Gap 16.4; BUN Creatinine Ratio 22.3; Calcium 9.2 mg/dL (8.5-10.1); Carbon Dioxide 21.6 mmol/L (21.0-32.0); Chloride 105 mmol/L (98-107); Estimated GFR (African America 29 (>=60); Estimated GFR (Non-African Ame 24 (>=60); Glucose 178 mg/dL (74-106); Magnesium 1.6 mg/dL (1.8-2.4); Phosphorus 4.4 mg/dL (2.6-4.7); Sodium 138 mmol/L (136-145)
[2023-04-22 08:28] LABS: Percent Iron Saturation 41.8 %
== END 2023-04-22 06:37 | disposition home or self-care (01) ==
LOC: LAB 06:38
PROVIDERS: PCP Family Medicine; Visit Provider Internal Medicine
DX: I12.9 Hypertensive chronic kidney disease with stage 1 through stage 4 chronic kidney disease, or unspecified chronic kidney disease (principal); N18.4 Chronic kidney disease, stage 4 (severe); D63.1 Anemia in chronic kidney disease; M1A.00X0 Idiopathic chronic gout, unspecified site, without tophus (tophi); E11.22 Type 2 diabetes mellitus with diabetic chronic kidney disease; N25.81 Secondary hyperparathyroidism of renal origin; E87.5 Hyperkalemia
CPT/HCPCS: 36415; 80069; 82728; 83540; 83550; 83735; 85014; 85018

== ENCOUNTER 2023-05-27 06:44 | Outpatient (OUT) | payer MEDICARE, SELFPAY ==
[2023-05-27 07:28] LABS: Hematocrit 28.4 % (36.0-48.0); Hemoglobin 9.5 g/dL (12.0-16.0)
== END 2023-05-27 06:45 | disposition home or self-care (01) ==
LOC: LAB 06:46
PROVIDERS: PCP Family Medicine; Visit Provider Internal Medicine
DX: I12.9 Hypertensive chronic kidney disease with stage 1 through stage 4 chronic kidney disease, or unspecified chronic kidney disease (principal); N18.4 Chronic kidney disease, stage 4 (severe); D63.1 Anemia in chronic kidney disease; M1A.00X0 Idiopathic chronic gout, unspecified site, without tophus (tophi); E11.22 Type 2 diabetes mellitus with diabetic chronic kidney disease; N25.81 Secondary hyperparathyroidism of renal origin; E87.5 Hyperkalemia
CPT/HCPCS: 36415; 85014; 85018

== ENCOUNTER 2023-06-17 06:33 | Outpatient (OUT) | payer MEDICARE, SELFPAY ==
[2023-06-17 06:58] LABS: Hematocrit 28.7 % (36.0-48.0); Hemoglobin 9.4 g/dL (12.0-16.0)
[2023-06-17 08:33] LABS: Albumin Level 3.6 g/dL (3.4-5.0); Anion Gap 11.1; BUN Creatinine Ratio 26.7; Calcium 9.5 mg/dL (8.5-10.1); Carbon Dioxide 24.8 mmol/L (21.0-32.0); Chloride 104 mmol/L (98-107); Estimated GFR (African America 36 (>=60); Estimated GFR (Non-African Ame 30 (>=60); Glucose 149 mg/dL (74-106); Magnesium 1.6 mg/dL (1.8-2.4); Phosphorus 3.8 mg/dL (2.6-4.7); Potassium 4.9 mmol/L (3.5-5.1); Sodium 135 mmol/L (136-145); Uric Acid 4.5 mg/dL (2.6-6.0)
[2023-06-17 08:39] LABS: Percent Iron Saturation 28.9 %
[2023-06-18 12:10] LABS: PTH, Intact 44 pg/mL (15-65)
== END 2023-06-17 06:34 | disposition home or self-care (01) ==
LOC: LAB 06:35
PROVIDERS: PCP Family Medicine; Visit Provider Internal Medicine
DX: I12.9 Hypertensive chronic kidney disease with stage 1 through stage 4 chronic kidney disease, or unspecified chronic kidney disease (principal); N18.4 Chronic kidney disease, stage 4 (severe); D63.1 Anemia in chronic kidney disease; M1A.00X0 Idiopathic chronic gout, unspecified site, without tophus (tophi); E11.22 Type 2 diabetes mellitus with diabetic chronic kidney disease; N25.81 Secondary hyperparathyroidism of renal origin; E87.5 Hyperkalemia
CPT/HCPCS: 36415; 80069; 82306; 82728; 83540; 83550; 83735; 83970; 84550; 85014; 85018

== ENCOUNTER 2023-07-08 06:37 | Outpatient (OUT) | payer MEDICARE, SELFPAY ==
[2023-07-08 07:01] LABS: Hematocrit 29.2 % (36.0-48.0); Hemoglobin 9.4 g/dL (12.0-16.0); Mean Corpuscular HGB Conc 32.2 g/dL (29.9-35.2); Mean Corpuscular Hemoglobin 30.1 pg (26.7-34.0); Mean Corpuscular Volume 93.6 fL (81.0-99.0); Mean Platelet Volume 9.7 fL (9.5-13.5); Platelet Count 175 10^3/uL (150-450); Red Blood Count 3.12 10^6/uL (4.20-5.40); Red Cell Distribution Width 15.6 % (11.0-15.0); White Blood Count 5.8 10^3/uL (4.0-11.0)
== END 2023-07-08 06:38 | disposition home or self-care (01) ==
LOC: LAB 06:39
PROVIDERS: PCP Family Medicine; Visit Provider Internal Medicine
DX: I12.9 Hypertensive chronic kidney disease with stage 1 through stage 4 chronic kidney disease, or unspecified chronic kidney disease (principal); D63.1 Anemia in chronic kidney disease; N18.4 Chronic kidney disease, stage 4 (severe); M1A.00X0 Idiopathic chronic gout, unspecified site, without tophus (tophi); E11.22 Type 2 diabetes mellitus with diabetic chronic kidney disease; N25.81 Secondary hyperparathyroidism of renal origin; E87.5 Hyperkalemia
CPT/HCPCS: 36415; 85027

== ENCOUNTER 2023-07-08 06:42 | Outpatient (OUT) | payer MEDICARE, SELFPAY ==
[2023-07-08 08:25] LABS: Anion Gap 15.9; BUN Creatinine Ratio 24.4; Calcium 9.3 mg/dL (8.5-10.1); Carbon Dioxide 23.2 mmol/L (21.0-32.0); Chloride 103 mmol/L (98-107); Chol HDL Ratio 3.7; Cholesterol 155 mg/dL (<=200); Estimated GFR (African America 28 (>=60); Estimated GFR (Non-African Ame 23 (>=60); Glucose 152 mg/dL (74-106); HDL Cholesterol 42 mg/dL (40-60); Magnesium 1.6 mg/dL (1.8-2.4); Potassium 5.1 mmol/L (3.5-5.1); Sodium 137 mmol/L (136-145); Triglycerides 206 mg/dL (<=150); VLDL CHOLESTEROL 41.2 mg/dL
== END 2023-07-08 06:43 | disposition home or self-care (01) ==
LOC: LAB 06:44
PROVIDERS: PCP Family Medicine
DX: I12.9 Hypertensive chronic kidney disease with stage 1 through stage 4 chronic kidney disease, or unspecified chronic kidney disease (principal); D63.1 Anemia in chronic kidney disease; N18.4 Chronic kidney disease, stage 4 (severe); M1A.00X0 Idiopathic chronic gout, unspecified site, without tophus (tophi); E11.22 Type 2 diabetes mellitus with diabetic chronic kidney disease; N25.81 Secondary hyperparathyroidism of renal origin; E87.5 Hyperkalemia; I25.10 Atherosclerotic heart disease of native coronary artery without angina pectoris; E78.49 Other hyperlipidemia; I48.0 Paroxysmal atrial fibrillation
CPT/HCPCS: 36415; 80048; 80061; 83735; 85027

== ENCOUNTER 2023-07-22 06:49 | Outpatient (OUT) | payer MEDICARE, SELFPAY ==
[2023-07-22 07:12] LABS: Hematocrit 29.4 % (36.0-48.0); Hemoglobin 9.7 g/dL (12.0-16.0); Mean Corpuscular Hemoglobin 30.6 pg (26.7-34.0); Mean Corpuscular Volume 92.7 fL (81.0-99.0); Mean Platelet Volume 9.2 fL (9.5-13.5); Platelet Count 213 10^3/uL (150-450); Red Blood Count 3.17 10^6/uL (4.20-5.40); Red Cell Distribution Width 16.2 % (11.0-15.0)
[2023-07-22 07:57] LABS: Albumin Level 3.4 g/dL (3.4-5.0); BUN Creatinine Ratio 21.3; Calcium 9.3 mg/dL (8.5-10.1); Chloride 104 mmol/L (98-107); Estimated GFR (African America 37 (>=60); Estimated GFR (Non-African Ame 30 (>=60); Glucose 184 mg/dL (74-106); Phosphorus 4.2 mg/dL (2.6-4.7); Sodium 137 mmol/L (136-145)
== END 2023-07-22 06:50 | disposition home or self-care (01) ==
LOC: LAB 06:50
PROVIDERS: PCP Family Medicine; Visit Provider Internal Medicine
DX: N18.4 Chronic kidney disease, stage 4 (severe) (principal); D63.1 Anemia in chronic kidney disease
CPT/HCPCS: 36415; 80069; 85027

== ENCOUNTER 2023-07-23 14:26 | Outpatient (OUT) | payer MEDICARE, SELFPAY ==
[2023-07-23 14:40] LABS: Bilirubin Urine NEGATIVE (NEGATIVE); Blood Urine TRACE-I (NEGATIVE); Clarity Urine CLEAR (CLEAR); Color Urine LT. YELLOW (YELLOW); Glucose Urine UA 100 mg/dL (NEGATIVE); Ketones Urine NEGATIVE (NEGATIVE); Leukocyte Esterase Urine MODERATE (NEGATIVE); Nitrite Urine NEGATIVE (NEGATIVE); Protein Urine TRACE mg/dL (NEG/TRACE); Urobilinogen Urine 0.2 EU/dL (0.2-1.0); pH Urine 5.5 (5.0-9.0)
[2023-07-23 14:51] LABS: Bacteria Urine SMALL #/HPF (NONE SEEN); Cast Seen? NONE SEEN #/LPF (NONE SEEN); Crystals Seen? None Seen #/HPF (None Seen); Mucus Urine NONE SEEN (NONE SEEN); Squamous Epithelial Cell Urine FEW #/LPF (NONE/RARE); Urine Culture Indicated ALREADY ORDERED; WBC Urine 20-50 #/HPF (NONE SEEN)
== END 2023-07-23 14:27 | disposition home or self-care (01) ==
LOC: LAB 14:30
PROVIDERS: PCP Family Medicine; Visit Provider Family Medicine
DX: R30.0 Dysuria (principal)
CPT/HCPCS: 81001; 87086; 87150; 87186

== ENCOUNTER 2023-08-05 06:32 | Outpatient (OUT) | payer MEDICARE, SELFPAY ==
[2023-08-05 07:04] LABS: Hematocrit 31.8 % (36.0-48.0); Hemoglobin 10.3 g/dL (12.0-16.0); Mean Corpuscular HGB Conc 32.4 g/dL (29.9-35.2); Mean Corpuscular Hemoglobin 30.8 pg (26.7-34.0); Mean Corpuscular Volume 95.2 fL (81.0-99.0); Mean Platelet Volume 9.5 fL (9.5-13.5); Platelet Count 236 10^3/uL (150-450); Red Blood Count 3.34 10^6/uL (4.20-5.40); Red Cell Distribution Width 15.5 % (11.0-15.0); White Blood Count 8.4 10^3/uL (4.0-11.0)
[2023-08-05 07:59] LABS: Percent Iron Saturation 24.2 %
== END 2023-08-05 06:33 | disposition home or self-care (01) ==
LOC: LAB 06:33
PROVIDERS: PCP Family Medicine; Visit Provider Internal Medicine
DX: N39.0 Urinary tract infection, site not specified (principal); I12.9 Hypertensive chronic kidney disease with stage 1 through stage 4 chronic kidney disease, or unspecified chronic kidney disease; D63.1 Anemia in chronic kidney disease; N18.4 Chronic kidney disease, stage 4 (severe); M1A.00X0 Idiopathic chronic gout, unspecified site, without tophus (tophi); E11.22 Type 2 diabetes mellitus with diabetic chronic kidney disease; N25.81 Secondary hyperparathyroidism of renal origin; E87.5 Hyperkalemia
CPT/HCPCS: 36415; 81001; 82728; 83540; 83550; 85027; 87086

== ENCOUNTER 2023-08-05 09:09 | Outpatient (REF) | payer MEDICARE, SELFPAY ==
[2023-08-05 09:41] LABS: Bilirubin Urine NEGATIVE (NEGATIVE); Blood Urine NEGATIVE (NEGATIVE); Clarity Urine CLEAR (CLEAR); Color Urine LT. YELLOW (YELLOW); Glucose Urine UA NEGATIVE (NEGATIVE); Ketones Urine NEGATIVE (NEGATIVE); Leukocyte Esterase Urine NEGATIVE (NEGATIVE); Nitrite Urine NEGATIVE (NEGATIVE); Protein Urine 30 mg/dL (NEG/TRACE); Urobilinogen Urine 0.2 EU/dL (0.2-1.0); pH Urine 5.5 (5.0-9.0)
[2023-08-05 10:18] LABS: Bacteria Urine NONE SEEN #/HPF (NONE SEEN); Mucus Urine NONE SEEN (NONE SEEN); RBC Urine 0-2 #/HPF (0-2); Squamous Epithelial Cell Urine RARE #/LPF (NONE/RARE); WBC Urine NONE SEEN #/HPF (NONE SEEN)
[2023-08-05 10:19] LABS: Cast Seen? NONE SEEN #/LPF (NONE SEEN); Crystals Seen? None Seen #/HPF (None Seen)
== END 2023-08-05 09:10 | disposition home or self-care (01) ==
LOC: LAB 09:09
PROVIDERS: PCP Family Medicine; Visit Provider Family Medicine
DX: N39.0 Urinary tract infection, site not specified (principal)
CPT/HCPCS: 81001; 87086

== ENCOUNTER 2023-08-19 06:41 | Outpatient (OUT) | payer MEDICARE, SELFPAY ==
[2023-08-19 07:02] LABS: Hematocrit 32.8 % (36.0-48.0); Hemoglobin 10.4 g/dL (12.0-16.0); Mean Corpuscular HGB Conc 31.7 g/dL (29.9-35.2); Mean Corpuscular Hemoglobin 30.2 pg (26.7-34.0); Mean Corpuscular Volume 95.3 fL (81.0-99.0); Platelet Count 228 10^3/uL (150-450); Red Blood Count 3.44 10^6/uL (4.20-5.40); Red Cell Distribution Width 15.6 % (11.0-15.0); White Blood Count 7.6 10^3/uL (4.0-11.0)
[2023-08-19 07:39] LABS: Albumin Level 3.6 g/dL (3.4-5.0); Anion Gap 18.8; BUN Creatinine Ratio 28.6; Calcium 9.3 mg/dL (8.5-10.1); Carbon Dioxide 21.3 mmol/L (21.0-32.0); Chloride 103 mmol/L (98-107); Estimated GFR (African America 29 (>=60); Estimated GFR (Non-African Ame 24 (>=60); Glucose 191 mg/dL (74-106); Phosphorus 4.5 mg/dL (2.6-4.7); Potassium 5.1 mmol/L (3.5-5.1); Sodium 138 mmol/L (136-145)
[2023-08-19 09:49] LABS: Magnesium 1.8 mg/dL (1.8-2.4)
--- OUTSIDE RECORDS SUMMARY | 2023-09-24 17:21 | XMS_ITS | CCD ---
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 Name Role Phone PHYSICIAN, DEFAULT Unavailable Unavailable PHYSICIAN, DEFAULT Unavailable Unavailable Doreen, Ron Unavailable Óscar Ackermanduc Unavailable Jana Monson Unavailable FIORELLAY ., DR BARTLETT Consulting Unavailable HOY ., DR BARTLETT Primary Care Unavailable HOY ., DR BARTLETT Attending Unavailable HOY ., DR BARTLETT Admitting Unavailable MARKER ., DR SNYDER Attending Unavailable MARKER ., DR SNYDER Admitting Unavailable HOY ., DR BARTLETT Primary Care Unavailable ZIEBER, DR YANET Dominique Consulting Unavailable HOY ., DR BARTLETT Primary Care Unavailable HOY ., DR BARTLETT Attending Unavailable HOY ., DR BARTLETT Admitting Unavailable HOY ., DR BARTLETT Consulting Unavailable HOY ., DR BARTLETT Primary Care Unavailable HOY ., DR BARTLETT Attending Unavailable HOY ., DR BARTLETT Admsherlyn Unavailable HOY ., DR BARTLETT Consulting Unavailable HOY ., DR BARTLETT Primary Care Unavailable HOY ., DR BARTLETT Attending Unavailable HOY ., DR BARTLETT Admsherlyn Unavailable ZIEBER, DR YANET Dominique Consulting Unavailable DOREEN, RON Consulting Unavailable HOY ., DR BARTLETT Primary Care Unavailable DOREEN, RON Attending Unavailable DOREEN, RON Admitting Unavailable DOREEN, RON Consulting Unavailable HOY ., DR BARTLETT Primary Care Unavailable DOREEN, RON Attending Unavailable DOREEN, RON Admitting Unavailable DOREEN, RON Consulting Unavailable HOY ., DR BARTLETT Primary Care Unavailable DOREEN, RON Attending Unavailable DOREEN, RON Admitting Unavailable HOY ., DR BARTLETT Consulting Unavailable HOY ., DR BARTLETT Primary Care Unavailable HOY ., DR BARTLETT Attending Unavailable HOY ., DR BARTLETT Admitting Unavailable AHDOOT, ANGELINA Consulting Unavailable ELASHI, DR SKINNER Consulting Unavailable HOY ., DR BARTLETT Primary Care Unavailable ELASHI, DR SKINNER Attending Unavailable ELASHI, DR SKINNER Admitting Unavailable WEST, DR BENI Sharif Consulting Unavailable HOY ., DR BARTLETT Primary Care Unavailable MARVIN, ERNESTINA Attending Unavailable MARVIN, ERNESTINA Admitting Unavailable MARVIN, ERNESTINA Consulting Unavailable DOREEN, RON Consulting Unavailable HOY ., DR BARTLETT Primary Care Unavailable DOREEN, RON Attending Unavailable DOREEN, RON Admitting Unavailable DOREEN, RON Consulting Unavailable HOY ., DR BARTLETT Primary Care Unavailable DOREEN, RON Attending Unavailable DOREEN, RON Admitting Unavailable HOY ., DR BARTLETT Consulting Unavailable HOY ., DR BARTLETT Primary Care Unavailable HOY ., DR BARTLETT Attending Unavailable HOY ., DR BARTLETT Admitting Unavailable ZIEBER, DR YANET Dominique Consulting Unavailable HOY ., DR BARTLETT Consulting Unavailable HOY ., DR BARTLETT Primary Care Unavailable HOY ., DR BARTLETT Attending Unavailable HOY ., DR BARTLETT Admitting Unavailable WEST, DR BENI Sharif Consulting Unavailable DOREEN, RON Consulting Unavailable HOY ., DR BARTLETT Primary Care Unavailable DOREEN, RON Attending Unavailable DOREEN, RON Admitting Unavailable Allergies Allergy Classification Reported Allergen(s) Allergy Type Date of Onset Reaction(s) Facility (20 sources) amLODIPine Drug Allergy Unknown [facility] Other (15 sources) Amoxicillin / Clavulanate Drug Allergy Unknown [facility] Other (20 sources) Contrast media Propensity to adverse reactions Unknown [facility] Other (2 sources) Doxazosin; Translations: [doxazosin] Drug Allergy Unknown [facility] Other (20 sources) Sulfamethoxazole / Trimethoprim Drug Allergy Unknown [facility] Other (20 sources) Doxazosin Drug Allergy Unknown [facility] Other (9 sources) Amoxicillin / Clavulanate; Translations: [Augmentin] Drug Allergy 11-16-19 16 Unknown [facility] (1 source) amLODIPine Drug Allergy 04-25-20 14 [facility] (1 source) Sulfamethoxazole / Trimethoprim Drug Allergy 03-09-20 13 [facility] Medications Current Medications Medication Drug Class(es) Dates Sig (Normalized) Sig (Original) acetaminophen 500 mg oral tablet (19 sources) take 2 tablets by mouth every six hours Acetaminophen Extra Strength 500 MG 2 tablet as needed Orally every 6 hrs Active take 2 tablets by mouth every si x hours Acetaminophen Extra Strength 500 MG (4 sources) take 2 tablets by mouth every six hours as needed Acetaminophen Extra Strength 500 MG 2 tablet as needed Orally every 6 hrs Active allopurinol 300 mg oral tablet (20 sources) Xanthine Oxidase Inhibitor take 1 tablet by mouth every twenty-four hours Allopurinol 300 MG 1 tablet Orally Once a day for 90 day(s) Active aspirin 81 mg chewable tablet (20 sources) Platelet Aggregation Inhibitor, Nonsteroidal Anti-inflammatory Drug take 1 tablet by mouth every twenty-four hours Aspirin 81 MG 1 tablet Orally Once a day Active atorvastatin 80 mg oral tablet (20 sources) HMG-CoA Reductase Inhibitor take 1 tablet by mouth every twenty-four hours Atorvastatin Calcium 80 MG 1 tablet Orally Once a day Active calcium carbonate 1500 mg oral tablet (2 sources) take 1 tablet by mouth every twenty-four hours Calcium 600 MG 1 tablet with meals Orally Once a day Active carvedilol 25 mg oral tablet (20 sources) alpha-Adrenergic Gato, beta-Adrenergic Gato take 1 tablet by mouth every twelve hours Carvedilol 25 MG 1 tablet with food Orally Twice a day Active ciprofloxacin 500 mg oral tablet (3 sources) Quinolone Antimicrobial take 1 tablet by mouth every twelve hours Cipro 500 MG 1 tablet Orally every 12 hrs Active epoetin [id number] 70741 UNT/ML Injectable Solution [Retacrit] (14 sources) Retacrit 17502 U NIT/ML as directed Injection Active ferrous sulfate 325 mg oral tablet (20 sources) take 1 tablet by enzo th every twelve hours Ferrous Sulfate 325 (65 Fe) MG 1 tablet Orally bid for 90 day(s) Active take 1 tablet by mouth twice marquez ly take 1 tablet by mouth twice marquez ly Ferrous Sulfate 325 (65 Fe) MG 1 tablet Orally bid for 90 day(s) Active furosemide 20 mg oral tablet (16 sources) Loop Diuretic take 1 tablet by mouth once daily Furosemide 20 mg TAKE 1 TABLET BY MOUTH ONCE DAILY for 90 Active 3 ml insulin aspart, human 100 unt/ml pen injector (20 sources) Insulin Analog NovoLOG FlexPen 100 UNIT/ML Use as Directed Subcutaneous 10 units in am, 15 units at noon, 20 units at supper. Active 3 ml insulin detemir 100 unt/ml pen injector (17 sources) Insulin Analog Levemir FlexTouc h 100 UNIT/ML As Directed Subcutaneous 50 units twice a day Active Levemir FlexTouch 100 UNIT/ML (6 sources) Levemir FlexTouc h 100 UNIT/ML As Directed Subcutaneous 50 units twice a day Active levothyroxine sodium 0.125 mg oral tablet (20 sources) l-Thyroxine take 1 tablet by mouth once daily in the morning Synthroid 125 MCG 1 tablet on an empty stomach in the morning Orally Once a day Active liothyronine sodium 0.005 mg oral tablet (20 sources) l-Triiodothyronine take 2 tablets by mouth every twenty-four hours Liothyronine Sodium 5 MCG 2 tablets on an empty stomach Orally Once a day Active take 2 tablets by mouth every tw enty-four hours lisinopril 10 mg oral tablet (20 sources) Angiotensin Converting Enzyme Inhibitor Start: 01-18-2022 take 1 tablet by mouth every twenty-four hours Lisinopril 10 MG 1 tablet Orally Once a day for 90 day(s) Jan, Active take 1 tablet by enzo th every twenty-four hours Lisinopril 20 MG 1 tablet Orally Once a day for 90 days Active magnesium oxide 400 mg oral tablet (20 sources) take 1 tablet by enzo th every eight hours Magnesium Oxide 400 MG 1 Tablet Orally THREE TIMES A DAY for 90 Active take 1 tablet by enzo th every twelve hours Magnesium Oxide 400 MG 1 Tablet Orally twice a day for 90 Active Multi For Her 50+ - (20 sources) Multi For Her 50 + - Orally Active pantoprazole 40 mg delayed release oral tablet (20 sources) Proton Pump Inhibitor take 1 tablet by mouth every twenty-four hours Pantoprazole Sodium 40 MG 1 tablet Orally Once a day Active Sennosides-Docusate Sodium 8.6-50 MG (20 sources) take 1 tablet by enzo th every twelve hours in the evening as needed take 1 tablet by enzo th every twelve hours in the evening as needed Sennosides-Docusate Sodium 8.6-50 MG 1 tablet in the evening as needed Orally every 12 hours Active Vitamin D-3 125 MCG (5000 UT ) (20 sources) Vitamin D-3 125 MCG (5000 UT) as directed Orally Active Completed/Discontinued Medications Medication Drug Class(es) Dates Sig (Normalized) Sig (Original) RETACRIT INJECTION (20 sources) Start: 08-27-2023 RETACRIT INJECTION Aug, 1000 mL Start: 08-15-2023 RETACRIT INJEC TION Aug, 1000 mL Start: 08-01-2023 RETACRIT INJEC TION Jul, 1000 mL Start: 07-15-2023 RETACRIT INJEC TION Jul, 1000 mL Start: 06-24-2023 RETACRIT INJEC TION Jun, 1000 mL Start: 06-06-2023 RETACRIT INJEC TION May, 1000 mL Start: 04-30-2023 RETACRIT INJEC TION Apr, 1000 mL Start: 04-06-2023 RETACRIT INJEC TION Apr, 1000 U Start: 04-06-2023 Start: 03-07-2023 Start: 03-07-2023 RETACRIT INJEC TION Mar, 1000 mL Start: 01-31-2023 Start: 01-31-2023 RETACRIT INJEC TION Jan, 1000 mL Start: 12-20-2022 Start: 12-20-2022 RETACRIT INJEC TION Dec, 1000 mL Start: 11-05-2022 Start: 11-05-2022 RETACRIT INJEC TION Oct, 1000 mL Start: 09-27-2022 Start: 09-27-2022 RETACRIT INJEC TION Sep, 1000 mL Start: 08-22-2022 Start: 08-22-2022 RETACRIT INJEC TION Aug, 1000 mL Start: 07-02-2022 Start: 07-02-2022 RETACRIT INJEC TION Jun, 1000 U Start: 05-30-2022 Start: 05-30-2022 RETACRIT INJEC TION May, 1000 mL Problems Active Problems Problem Classification Problem Date Documented Date Episodic/Chronic Acute bronchitis (4 sources) Acute bronchitis, unspecified; Translations: [ACUTE BRONCHITIS UNSPECIFIED] Onset: 3 Episodic Chronic kidney disease (20 sources) Chronic kidney disease stage 3; Translations: [Chronic kidney disease, stage 3 (moderate)] Onset: 2 Resolved: 2 Chronic Congestive heart failure; nonhypertensive (1 source) Unspecified diastolic (congestive) heart failure; Translations: [UNSPECIFIED DIASTOLIC HEART FAILURE] Onset: 2 Chronic Deficiency and other anemia (20 sources) Anemia of renal disease; Translations: [Anemia in chronic kidney disease] Chronic Deficiency and other anemia (17 sources) Anemia in chronic kidney disease; Translations: [ANEMIA IN CHRONIC KIDNEY DISEASE] Onset: 2 Resolved: 2 Chronic Deficiency and other anemia (20 sources) Iron deficiency anemia; Translations: [Iron deficiency anemia, unspecified] Episodic Diabetes mellitus with complications (20 sources) Type 2 diabetes mellitus; Translations: [Type 2 diabetes mellitus with diabetic chronic kidney disease] Onset: 2 Resolved: 2 Chronic Essential hypertension (19 sources) Hypertensive disorder; Translations: [Essential (primary) hypertension] Onset: 2 Chronic Fluid and electrolyte disorders (6 sources) Hyperkalemia Episodic Gout and other crystal arthropathies (20 sources) Chronic gouty arthritis; Translations: [Idiopathic chronic gout, unspecified site, without tophus (tophi)] Onset: 2 Resolved: 2 Chronic Hypertension with complications and secondary hypertension (20 sources) Hypertensive renal disease; Translations: [Hypertensive chronic kidney disease with stage 1 through stage 4 chronic kidney disease, or unspecified chronic kidney disease] Onset: 2 Resolved: 2 Chronic Other connective tissue disease (4 sources) Pain in right foot; Translations: [PAIN IN RIGHT FOOT] Onset: 3 Episodic Other connective tissue disease (1 source) Pain in left foot; Translations: [PAIN IN LEFT FOOT] Onset: 3 Episodic Other diseases of kidney and ureters (20 sources) Secondary hyperparathyroidism; Translations: [Secondary hyperparathyroidism of renal origin] Chronic Other diseases of kidney and ureters (13 sources) Secondary hyperparathyroidism of renal origin; Translations: [SEC HYPERPARATHYROIDISM RENAL ORIGN] Onset: 2 Resolved: 2 Chronic Other nutritional; endocrine; and metabolic disorders (20 sources) Hypomagnesemia; Translations: [Hypomagnesemia] Chronic Other nutritional; endocrine; and metabolic disorders (20 sources) Obese class I; Translations: [Body mass index (BMI) 31.0-31.9, adult] Chronic Other screening for suspected conditions (not mental disorders or infectious disease) (4 sources) Encounter for screening mammogram for malignant neoplasm of breast; Translations: [ENC SCR MAMMO MALIG NEOPLASM BREAST] Onset: 3 Episodic Residual codes; unclassified (1 source) Family history of malignant neoplasm of breast; Translations: [FAMILY HX MALIG NEOPLASM OF BREAST] Onset: 3 Episodic Residual codes; unclassified (1 source) Family history of malignant neoplasm of trachea, bronchus and lung; Translations: [FAM HX MALIG NEOPLSM TRACH BRON LNG] Onset: 3 Episodic Unclassified (3 sources) CONTACT W/AND (SUSP) EXPOS COVID-19; Translations: [CONTACT W/AND (SUSP) EXPOS COVID-19] Onset: 2 Unclassified (3 sources) OTHER LOW BACK PAIN; Translations: [OTHER LOW BACK PAIN] Onset: 2 Past or Other Problems Problem Classification Problem Date Documented Da te Episodic/Chronic Blindness and vision defects (1 source) Unspecified visual disturbance; Translations: [UNSPECIFIED VISUAL DISTURBANCE] Onset: 09-13-2022 Episodic Conditions associated with dizziness or vertigo (1 source) Dizziness and giddiness; Translations: [DIZZINESS AND GIDDINESS] Onset: 09-13-2022 Episodic Genitourinary symptoms and ill-defined conditions (1 source) Dysuria; Translations: [DYSURIA] Onset: 09-13-2022 Episodic Malaise and fatigue (2 sources) Other fatigue; Translations: [Weakness] Onset: 09-13-2022 Episodic Other circulatory disease (4 sources) Hemorrhage, not elsewhere classified; Translations: [HEMORRHAGE NOT ELSEWHERE CLASSIFIED] Onset: 10-24-2022 Episodic Other circulatory disease (1 source) Hypotension, unspecified; Translations: [HYPOTENSION UNSPECIFIED] Onset: 09-13-2022 Episodic Other fractures (4 sources) Collapsed vertebra, not elsewhere classified, lumbar region, subsequent encounter for fracture with delayed healing; Translations: [COLLAPSED VERT NEC LUMB SUB DLAY HL] Onset: 06-25-2022 Episodic Residual codes; unclassified (1 source) Procedure and treatment not carried out due to patient leaving prior to being seen by health care provider; Translations: [PROC AND TX NOT CARRIED OUT PT LEAVE] Onset: 10-26-2022 Episodic Unclassified (1 source) CONTACT W/AND (SUSP) EXPOS COVID-19; Translations: [CONTACT W/AND (SUSP) EXPOS COVID-19] Onset: 06-18-2022 Unclassified (1 source) OTHER LOW BACK PAIN; Translations: [OTHER LOW BACK PAIN] Onset: 05-21-2022 Results Test Name Value Interpretation Reference Range Facil ity HEMOGRAM AND PLATELon 2022 Hematocrit (Bld) [Volume fraction] 28.8 % Critically low 36.0-48.0 [facility] Comment on above: Performed By: #### H H #### [facility] [address] [place] [address] Dr. Ember Teague Hemoglobin (Bld) [Mass/Vol] 9.6 g/dL Critically low 12.0 -16.0 [facility] Comment on above: Performed By: #### H H #### [facility] [address] [place] [address] Dr. Ember Teague MCH (RBC) [Entitic mass] 30.7 pg Normal 26.7-34.0 [facility] Comment on above: Performed By: #### H H #### [facility] [address] [address] [address] Ember Teague MCHC (RBC) [Mass/Vol] 33.3 g/dL Normal 29.9-35.2 [facility] Comment on above: Performed By: #### H H #### [facility] [address] [place] [address] Dr. Ember Teague MCV (RBC) [Entitic vol] 92.0 fL Normal 81.0-99.0 [facility] Comment on above: Performed By: #### H H #### [facility] [address] [address] [address] Ember Teague PLT 214 103/ul Normal 150-450 [facility] Comment on above: Performed By: #### H H #### [facility] [address] [address] [address] Ember Teague RBC 3.13 106/ul Critically low 4.20-5.40 [facility] Comment on above: Performed By: #### H H #### [facility] [address] [address] [address] Ember Teague WBC 7.4 103/ul Normal 4.0-11.0 [facility] Comment on above: Performed By: #### H H #### [facility] [address] [place] [address] Dr. Ember Teague MAGNESIUMon 01-22-2023 Magnesium [Mass/Vol] 1.8 mg/dL Normal 1.8-2.4 [facility] Comment on above: Performed By: #### M G, RENAL #### [facility] [address] [address] [address] Ember Teague RENAL FUNCTION PANELon 01-22 Albumin [Mass/Vol] 3.6 g/dL Normal 3.4-5.0 [facility] Comment on above: Performed By: #### M G, RENAL #### [facility] [address] [address] [address] Ember Teague Calcium [Mass/Vol] 9.7 mg/dL Normal 8.5-10.1 [facility] Comment on above: Performed By: #### M G, RENAL #### [facility] [address] [address] [address] Ember Teague Chloride [Moles/Vol] 105 mmol/L Normal 98-107 [facility] Comment on above: Performed By: #### M G, RENAL #### [facility] [address] [address] [address] Ember Teague CO2 [Moles/Vol] 22.6 mmol/L Normal 21.0-32.0 [facility] Comment on above: Performed By: #### M G, RENAL #### [facility] [address] [address] [address] Ember Teague Creatinine [Mass/Vol] 2.18 mg/dL Critically high 0.55-1.02 [facility] Comment on above: Performed By: #### M G, RENAL #### [facility] [address] [address] [address] Ember Teague EGFR-AF MOSOTHO 26 mL/min/1.73m2 Critically low >=60 [facility] Comment on above: Performed By: #### M G, RENAL #### [facility] [address] [place] [address] Dr. Ember Teague EGFR-NON AF MOSOTHO 22 mL/min/1.73m2 Critically low >=60 [facility] Comment on above: Performed By: #### M G, RENAL #### [facility] [address] [place] [address] Dr. Ember Teague Glucose [Mass/Vol] 134 mg/dL Critically high 74-106 [facility] Comment on above: Performed By: #### M G, RENAL #### [facility] [address] [place] [address] Dr. Ember Teague Phosphate [Mass/Vol] 4.6 mg/dL Normal 2.6-4.7 [facility] Comment on above: Performed By: #### M G, RENAL #### [facility] [address] [place] [address] Dr. Ember Teague Potassium [Moles/Vol] 5.1 mmol/L Normal 3.5-5.1 [facility] Comment on above: Performed By: #### M G, RENAL #### [facility] [address] [place] [address] Dr. Ember Teague Sodium [Moles/Vol] 138 mmol/L Normal 136-145 [facility] Comment on above: Performed By: #### M G, RENAL #### [facility] [address] [place] [address] Dr. Ember Teague Urea nitrogen [Mass/Vol] 61.0 mg/dL Critically high 7.0-18 .0 [facility] Comment on above: Performed By: #### M G, RENAL #### [facility] [id number] Ember Teague MG MAMM SCREEN 3D MAY CADon 12-17-2022 MG MAMM SCREEN 3D MAY CAD Patient: KYLAH BERGER Exam Date: 12/17/2022 : 1945 Gender:F Ordering : DR DHRUV GUTIERRES . Admission #: [id number] Family : Order #: [id number] CLICK HERE TO VIEW EXAM RADIOLOGY REPORT PROCEDURE: MAMMOGRAM SCREENING 3D BILATERAL CAD COMPARISON: MG MAMM SCREEN 3D MAY CAD, 12/15/2021. INDICATIONS: Screening mammography Calculator Name NCI Breast Cancer Risk Assessment Tool 5 Year Breast Cancer Risk 3.90% Lifetime Breast Cancer Risk 6.90% Personal Breast Cancer No Personal Ovarian Cancer No Treatments None Family Cancers Grandmother-maternal with breast cancer at age 70; Daughter with breast cancer at age 35; Aunt-maternal with breast cancer at age 72; Father with lung cancer at age 62. LOCATION: [facility] BREAST COMPOSITION: Scattered areas fibroglandular density. FINDINGS: DIAGNOSTIC CATEGORY 2--BENIGN FINDING. NO CHANGE FROM COMPARISON. Scattered benign-appearing nodules are present. Scattered benign-appearing calcifications are present. RIGHT BREAST: No significant suspicious finding. LEFT BREAST: No significant suspicious finding. RECOMMENDATIONS: ROUTINE MAMMOGRAM AND CLINICAL EVALUATION IN 12 MONTHS. PLEASE NOTE: A NORMAL MAMMOGRAM DOES NOT EXCLUDE THE POSSIBILITY OF BREAST CANCER. A CLINICALLY SUSPICIOUS PALPABLE LUMP SHOULD BE BIOPSIED. Dictated by: Beni Aparicio MD on 12/17/2022 at 11:54 Approved by: Beni Aparicio MD on 12/17/2022 at 11:59 Normal [facility] l FERRITINon 12-10-2022 Ferritin [Mass/Vol] 681.0 ng/mL Critically high 8.0-252.0 [facility] Comment on above: Performed By: #### P THINT #### [facility] [address] [place], [place] [address] Dr. Ember Teague HEMOGRAM AND PLATELon 2022 Hematocrit (Bld) [Volume fraction] 27.1 % Critically low 36.0-48.0 [facility] Comment on above: Performed By: #### C VDTBH #### [facility] [address] [place] [address] Dr. Ember Teague Hemoglobin (Bld) [Mass/Vol] 9.7 g/dL Critically low 12.0 -16.0 [facility] Comment on above: Performed By: #### C VDTBH #### [facility] [address] [place] [address] Dr. Ember Teague MCH (RBC) [Entitic mass] 31.4 pg Normal 26.7-34.0 [facility] Comment on above: Performed By: #### C VDTBH #### [facility] [address] [place] [address] Dr. Ember Teague MCHC (RBC) [Mass/Vol] 35.8 g/dL Critically high 29.9-35.2 [facility] Comment on above: Performed By: #### C VDTBH #### [facility] [address] [place] [address] Dr. Ember Teague MCV (RBC) [Entitic vol] 87.7 fL Normal 81.0-99.0 [facility] Comment on above: Performed By: #### C VDTBH #### [facility] [address] [place] [address] Dr. Ember Teague PLT 218 103/ul Normal 150-450 [facility] Comment on above: Performed By: #### C VDTBH #### [facility] [address] [place] [address] Dr. Ember Teague RBC 3.09 106/ul Critically low 4.20-5.40 [facility] Comment on above: Performed By: #### C VDTBH #### [facility] [address] [place] [address] Dr. Ember Teague WBC 6.6 103/ul Normal 4.0-11.0 [facility] Comment on above: Performed By: #### C VDTBH #### [facility] [address] [place] [address] Dr. Ember Teague IRON AND TIBCon 12-10-2022 % SATURATION 30.2 % Normal [facility] Comment on above: Performed By: #### P THINT #### [facility] [address] [address] [address] Ember Teague Iron [Mass/Vol] 84.0 ug/dL Normal 50.0-170.0 [facility] Comment on above: Performed By: #### P THINT #### [facility] [address] [address] [address] Ember Teague TIBC DIRECT 278.0 ug/dL Normal 250.0-450.0 [facility] Comment on above: Performed By: #### P THINT #### [facility] [address] [place] [address] Dr. Ember Teague XR FOOT MAY MIN 3 VIEWSon XR FOOT MAY MIN 3 VIEWS EXAMINATION: XR FOOT MAY MIN 3 VIEWS HISTORY: Pain in both feet COMPARISON: 08/03/2020 FINDINGS: RIGHT FINDINGS: BONES: No acute fracture or dislocation. Moderate enthesopathic spurring of the calcaneus. Mild degenerative changes with joint space narrowing marginal osteophyte formation most significant in the midfoot SOFT TISSUES: Negative. No visible soft tissue swelling. OTHER: Negative. LEFT FINDINGS: BONES: No acute fracture or dislocation. Moderate enthesopathic spurring of the calcaneus. Mild degenerative changes with joint space narrowing marginal osteophyte formation most significant in the midfoot SOFT TISSUES: Negative. No visible soft tissue swelling. OTHER: Negative. IMPRESSION: RIGHT CONCLUSION: Degenerative changes LEFT CONCLUSION: Degenerative changes Electronically authenticated by: BENI APARICIO Date: 2022-11-20 14:03 Normal The [facility] l HEMOGRAM AND PLATELon 2022 Hematocrit (Bld) [Volume fraction] 27.7 % Critically low 36.0-48.0 The [facility] Comment on above: Performed By: #### R ENAL #### [facility] [address] [place] [address] Dr. Ember Teague Hemoglobin (Bld) [Mass/Vol] 10.0 g/dL Critically low 12.0 -16.0 The [facility] Comment on above: Performed By: #### R ENAL #### [facility] [address] [address] [address] Ember Teague MCH (RBC) [Entitic mass] 31.6 pg Normal 26.7-34.0 [facility] Comment on above: Performed By: #### R ENAL #### [facility] [address] [place] [address] Dr. Ember Teague MCHC (RBC) [Mass/Vol] 36.1 g/dL Critically high 29.9-35.2 [facility] Comment on above: Performed By: #### R ENAL #### [facility] [address] [address] [address] Ember Teague MCV (RBC) [Entitic vol] 87.7 fL Normal 81.0-99.0 [facility] Comment on above: Performed By: #### R ENAL #### [facility] [address] [place] [address] Dr. Ember Teague PLT 182 103/ul Normal 150-450 [facility] Comment on above: Performed By: #### R ENAL #### [facility] [address] [address] [address] Ember Teague RBC 3.16 106/ul Critically low 4.20-5.40 [facility] Comment on above: Performed By: #### R ENAL #### [facility] [address] [address] [address] Ember Teague WBC 6.8 103/ul Normal 4.0-11.0 [facility] Comment on above: Performed By: #### R ENAL #### [facility] [address] [place] [address] Dr. Ember Teague PROF CHEM 8 (BAS METB)on Anion gap [Moles/Vol] 17.6 mmol/L Normal [facility] Comment on above: Performed By: #### C VDTBH #### [facility] [address] [place] [address] Dr. Ember Teague Calcium [Mass/Vol] 9.0 mg/dL Normal 8.5-10.1 [facility] Comment on above: Performed By: #### C VDTBH #### [facility] [address] [place] [address] Dr. Ember Teague Chloride [Moles/Vol] 104 mmol/L Normal 98-107 [facility] Comment on above: Performed By: #### C VDTBH #### [facility] [address] [place] [address] Dr. Ember Teague CO2 [Moles/Vol] 22.2 mmol/L Normal 21.0-32.0 [facility] Comment on above: Performed By: #### C VDTBH #### [facility] [address] [place] [address] Dr. Ember Teague Creatinine [Mass/Vol] 2.03 mg/dL Critically high 0.55-1.02 [facility] Comment on above: Performed By: #### C VDTBH #### [facility] [address] [place] [address] Dr. Ember Teague EGFR-AF MOSOTHO 29 mL/min/1.73m2 Critically low >=60 [facility] Comment on above: Performed By: #### C VDTBH #### [facility] [address] [place] [address] Dr. Ember Teague EGFR-NON AF MOSOTHO 24 mL/min/1.73m2 Critically low >=60 [facility] Comment on above: Performed By: #### C VDTBH #### [facility] [address] [place] [address] Dr. Ember Teague Glucose [Mass/Vol] 154 mg/dL Critically high 74-106 [facility] Comment on above: Performed By: #### C VDTBH #### [facility] [address] [place] [address] Dr. Ember Teague Potassium [Moles/Vol] 4.8 mmol/L Normal 3.5-5.1 [facility] Comment on above: Performed By: #### C VDTBH #### [facility] [address] [place] [address] Dr. Ember Teague Sodium [Moles/Vol] 139 mmol/L Normal 136-145 The [facility] Comment on above: Performed By: #### C VDTBH #### [facility] [address] [place] [address] Dr. Ember Teague Urea nitrogen [Mass/Vol] 43.0 mg/dL Critically high 7.0-18 .0 [facility] Comment on above: Performed By: #### C VDTBH #### [facility] [address] [address] [address] Ember Teague Urea nitrogen/Creatinine [Mass ratio] 21.2 mg/mg Normal [facility] Comment on above: Performed By: #### C VDTBH #### [facility] [address] [place] [address] Dr. Ember Teague CULTURE SPUTUMon 10-24-2022 CULTURE SPUTUM Culture Observations : Beta lactamase positive Isolate 1 Haemophilus influenzae Moderate growth of Normal The [facility] Comment on above: Performed By: #### R ENAL #### [facility] [address] [place] [address] Dr. Ember Teague SPUTUM GRAM STAINon 10-24-19 COMMENTS Normal [facility] Comment on above: Performed By: #### R ENAL #### [facility] [address] [place] [address] Dr. Ember Teague DIPHTHEROIDS Normal [facility] Comment on above: Performed By: #### R ENAL #### [facility] [address] [place] [address] Dr. Ember Teague EPITHELIALS >25 Normal The [facility] Comment on above: Performed By: #### R ENAL #### [facility] [address] [place] [address] Dr. Ember Teague FUNGAL ELEMENTS Normal The [facility] Comment on above: Performed By: #### R ENAL #### [facility] [address] [place] [address] Dr. Ember Teague GRAM NEG BACILLI Normal The [facility] Comment on above: Performed By: #### R ENAL #### [facility] [address] [address] [address] Ember Teague GRAM NEG DIPPLOCOCCI FEW Normal [facility] Comment on above: Performed By: #### R ENAL #### [facility] [address] [address] [address] Ember Teague GRAM POS BACILLI FEW Normal [facility] Comment on above: Performed By: #### R ENAL #### [facility] [address] [address] [address] Ember Teague GRAM POSITIVE COCCI MANY Normal The [facility] Comment on above: Performed By: #### R ENAL #### [facility] [address] [place] [address] Dr. Ember Teague WBC (Bld) [#/Vol] 10*3/uL Normal [facility] Comment on above: Performed By: #### R ENAL #### [facility] [address] [place] [address] Dr. Ember Teague XR CHEST 2 Von 10-24-2022 XR CHEST 2 V EXAMINATION: XR CHES T 2 V, , 10/24/2022 10:05 AM EST INDICATION: Acute bronchitis HISTORY: Ordering Provider Reason for Exam: Technologist Note: Additional: COMPARISON: Chest x-ray dated 11/17/2020. TECHNIQUE: Chest x-ray: Two views. FINDINGS: No pneumothorax, pleural effusion or focal airspace consolidation. Heart is normal in size. Patient is postmedian sternotomy. IMPRESSION: No acute cardiopulmonary process. Electronically authenticated by: ANGELINA BRISENO Date: 2022-10-24 16:22 Normal The [facility] FERRITINon 09-18-2022 Ferritin [Mass/Vol] 612.0 ng/mL Critically high 8.0-252.0 The [facility] Comment on above: Performed By: #### F ERR, FETIBC #### [facility] [address] [place] [address] Dr. Ember Teague HEMOGRAM AND PLATELon 2021 Hematocrit (Bld) [Volume fraction] 28.1 % Critically low 36.0-48.0 The [facility] Comment on above: Performed By: #### C BC #### [facility] [address] [place] [address] Dr. Ember Teague Hemoglobin (Bld) [Mass/Vol] 9.7 g/dL Critically low 12.0 -16.0 [facility] Comment on above: Performed By: #### C BC #### [facility] [address] [place] [address] Dr. Ember Teague MCH (RBC) [Entitic mass] 31.3 pg Normal 26.7-34.0 [facility] Comment on above: Performed By: #### C BC #### [facility] [address] [place] [address] Dr. Ember Teague MCHC (RBC) [Mass/Vol] 34.5 g/dL Normal 29.9-35.2 [facility] Comment on above: Performed By: #### C BC #### [facility] [address] [place] [address] Dr. Ember Teague MCV (RBC) [Entitic vol] 90.6 fL Normal 81.0-99.0 [facility] Comment on above: Performed By: #### C BC #### [facility] [address] [place] [address] Dr. Ember Teague PLT 183 103/ul Normal 150-450 The [facility] Comment on above: Performed By: #### C BC #### [facility] [address] [place] [address] Dr. Ember Teague RBC 3.10 106/ul Critically low 4.20-5.40 The [facility] Comment on above: Performed By: #### C BC #### [facility] [address] [place] [address] Dr. Ember Teague WBC 7.2 103/ul Normal 4.0-11.0 The [facility] Comment on above: Performed By: #### C BC #### [facility] [address] [place] [address] Dr. Ember Teague IRON AND TIBCon 09-18-2022 % SATURATION 36.0 % Normal [facility] Comment on above: Performed By: #### F ERR, FETIBC #### [facility] [address] [address] [address] Ember Teague Iron [Mass/Vol] 77.0 ug/dL Normal 50.0-170.0 The [facility] Comment on above: Performed By: #### F ERR, FETIBC #### [facility] [address] [address] [address] Ember Teague TIBC DIRECT 214.0 ug/dL Critically low 250.0-450.0 The [facility] Comment on above: Performed By: #### F ERR, FETIBC #### [facility] [address] [address] [address] Ember Teague RENAL FUNCTION PANELon 09-18 Albumin [Mass/Vol] 3.7 g/dL Normal 3.4-5.0 [facility] Comment on above: Performed By: #### R ENAL #### [facility] [address] [address] [address] Ember Teague Calcium [Mass/Vol] 9.5 mg/dL Normal 8.5-10.1 The [facility] Comment on above: Performed By: #### R ENAL #### [facility] [address] [address] [address] Ember Teague Chloride [Moles/Vol] 103 mmol/L Normal 98-107 [facility] Comment on above: Performed By: #### R ENAL #### [facility] [address] [address] [address] Ember Teague CO2 [Moles/Vol] 21.1 mmol/L Normal 21.0-32.0 [facility] Comment on above: Performed By: #### R ENAL #### [facility] [address] [address] [address] Ember Teague Creatinine [Mass/Vol] 1.85 mg/dL Critically high 0.55-1.02 [facility] Comment on above: Performed By: #### R ENAL #### [facility] [address] [address] [address] Ember Teague EGFR-AF MOSOTHO 32 mL/min/1.73m2 Critically low >=60 [facility] Comment on above: Performed By: #### R ENAL #### [facility] [address] [address] [address] Ember Teague EGFR-NON AF MOSOTHO 26 mL/min/1.73m2 Critically low >=60 [facility] Comment on above: Performed By: #### R ENAL #### [facility] [address] [address] [address] Ember Teague Glucose [Mass/Vol] 183 mg/dL Critically high 74-106 [facility] Comment on above: Performed By: #### R ENAL #### [facility] [address] [address] [address] Ember Teague Phosphate [Mass/Vol] 3.7 mg/dL Normal 2.6-4.7 [facility] Comment on above: Performed By: #### R ENAL #### [facility] [address] [address] [address] Ember Teague Potassium [Moles/Vol] 4.9 mmol/L Normal 3.5-5.1 [facility] Comment on above: Performed By: #### R ENAL #### [facility] [address] [place] [address] Dr. Ember Teague Sodium [Moles/Vol] 138 mmol/L Normal 136-145 [facility] Comment on above: Performed By: #### R ENAL #### [facility] [address] [address] [address] Ember Teague Urea nitrogen [Mass/Vol] 40.0 mg/dL Critically high 7.0-18 .0 [facility] Comment on above: Performed By: #### R ENAL #### [facility] [address] [place] [address] Dr. Ember Teague CULTURE URINEon 09-15-2022 CULTURE URINE Isolate 1 Citrobacter freundii >100,000 cfu/mL of ORGANISM 1 Citrobacter freundii ANTIBIOTIC M.I.C RX STATUS Piperacillin/Tazobactam <=4 S F Cefazolin >=64 R F Ceftazidime <=1 S F Ceftriaxone <=1 S F Ertapenem <=0.5 S F Imipenem <=0.25 S F Amikacin <=2 S F Gentamicin <=1 S F Tobramycin <=1 S F Ciprofloxacin <=0.25 S F Levofloxacin 0.5 S F Nitrofurantoin 32 S F Trimethoprim/Sulfamethoxazole <=20 S F Normal [facility] Comment on above: Performed By: #### R ENAL #### [facility] [address] [place] [address] Dr. Ember Teague BNPon 09-11-2022 Natriuretic peptide B (Bld) [Mass/Vol] 408.0 pg/mL Normal <=1,800.0 [facility] Comment on above: Performed By: #### P THINT #### [facility] [address] [place] [address] Dr. Ember Teague CBC AUTO DIFFon 09-11-2022 BASO # 0.0 103/ul Normal 0.0-0.1 The [facility] Comment on above: Performed By: #### C BC #### [facility] [address] [place] [address] Dr. Ember Teague Basophils/100 WBC (Bld) 0.3 % Normal 0.2-2.0 [facility] Comment on above: Performed By: #### C BC #### [facility] [address] [place] [address] Dr. Ember Teague EO # 0.1 103/ul Normal 0.0-0.7 [facility] Comment on above: Performed By: #### C BC #### [facility] [address] [place] [address] Dr. Ember Teague Eosinophils/100 WBC (Bld) 1.9 % Normal 0.9-7.0 [facility] Comment on above: Performed By: #### C BC #### [facility] [address] [place] [address] Dr. Ember Teague Erythrocyte distribution wid th (RBC) [Ratio] 15.2 % Critically high 11.0-15.0 [facility] Comment on above: Performed By: #### C BC #### [facility] [address] [place] [address] Dr. Ember Teague Hematocrit (Bld) [Volume fraction] 26.6 % Critically low 36.0-48.0 [facility] Comment on above: Performed By: #### C BC #### [facility] [address] [place] [address] Dr. Ember Teague Hemoglobin (Bld) [Mass/Vol] 9.0 g/dL Critically low 12.0 -16.0 [facility] Comment on above: Performed By: #### C BC #### [facility] [address] [place] [address] Dr. Ember Teague IG # 0.02 10e3/ul Normal 0.00-0.03 [facility] Comment on above: Performed By: #### C BC #### [facility] [address] [place] [address] Dr. Ember Teague IG % 0.3 % Normal 0.0-0.5 The [facility] Comment on above: Performed By: #### C BC #### [facility] [address] [place] [address] Dr. Ember Teague LYMPH # 1.9 103/ul Normal 1.2-3.8 [facility] Comment on above: Performed By: #### C BC #### [facility] [address] [place] [address] Dr. Ember Teague Lymphocytes/100 WBC (Bld) 32.4 % Normal 20.5-60.0 [facility] Comment on above: Performed By: #### C BC #### [facility] [address] [place] [address] Dr. Ember Teague MANUAL DIFF REQ NO Normal [facility] Comment on above: Performed By: #### C BC #### [facility] [address] [place] [address] Dr. Ember Teague MCH (RBC) [Entitic mass] 31.1 pg Normal 26.7-34.0 [facility] Comment on above: Performed By: #### C BC #### [facility] [address] [place] [address] Dr. Ember Teague MCHC (RBC) [Mass/Vol] 33.8 g/dL Normal 29.9-35.2 [facility] Comment on above: Performed By: #### C BC #### [facility] [address] [place] [address] Dr. Ember Teague MCV (RBC) [Entitic vol] 92.0 fL Normal 81.0-99.0 [facility] Comment on above: Performed By: #### C BC #### [facility] [address] [place] [address] Dr. Ember Teague MONO # 0.6 103/ul Normal 0.3-0.8 [facility] Comment on above: Performed By: #### C BC #### [facility] [address] [place] [address] Dr. Ember Teague Monocytes/100 WBC (Bld) 10.0 % Normal 1.7-12.0 [facility] Comment on above: Performed By: #### C BC #### [facility] [address] [place] [address] Dr. Ember Teague NEUT # 3.2 103/ul Normal 1.4-6.5 [facility] Comment on above: Performed By: #### C BC #### [facility] [address] [place] [address] Dr. Ember Teague Neutrophils/100 WBC (Bld) 55.1 % Normal 43.0-75.0 [facility] Comment on above: Performed By: #### C BC #### [facility] [address] [place] [address] Dr. Ember Teague Platelet mean volume (Bld) [Entitic vol] 9.4 fL Critically low 9.5-13.5 [facility] Comment on above: Performed By: #### C BC #### [facility] [address] [place] [address] Dr. Ember Teague PLT 196 103/ul Normal 150-450 [facility] Comment on above: Performed By: #### C BC #### [facility] [address] [place] [address] Dr. Ember Teague RBC 2.89 106/ul Critically low 4.20-5.40 [facility] Comment on above: Performed By: #### C BC #### [facility] [address] [address] [address] Ember Teague WBC 5.8 103/ul Normal 4.0-11.0 [facility] Comment on above: Performed By: #### C BC #### [facility] [address] [place] [address] Dr. Ember Teague PROF 14(COMP METB)on 022 Albumin [Mass/Vol] 3.7 g/dL Normal 3.4-5.0 [facility] Comment on above: Performed By: #### P THINT #### [facility] [address] [place] [address] Dr. Ember Teague Albumin/Globulin [Mass ratio] 1.0 {ratio} Normal [facility] Comment on above: Performed By: #### P THINT #### [facility] [address] [place] [address] Dr. Ember Teague ALP [Catalytic activity/Vol] 79 U/L Normal 46-116 [facility] Comment on above: Performed By: #### P THINT #### [facility] [address] [place] [address] Dr. Ember Teague ALT [Catalytic activity/Vol] 24 U/L Normal 14-59 [facility] Comment on above: Performed By: #### P THINT #### [facility] [address] [place] [address] Dr. Ember Teague Anion gap [Moles/Vol] 12.8 mmol/L Normal [facility] Comment on above: Performed By: #### P THINT #### [facility] [address] [place] [address] Dr. Ember Teague AST [Catalytic activity/Vol] 17 U/L Normal 15-37 [facility] Comment on above: Performed By: #### P THINT #### [facility] [address] [address] [address] Ember Teague Bilirubin [Mass/Vol] 0.5 mg/dL Normal 0.2-1.0 [facility] Comment on above: Performed By: #### P THINT #### [facility] [address] [address] [address] Ember Teague Calcium [Mass/Vol] 9.4 mg/dL Normal 8.5-10.1 [facility] Comment on above: Performed By: #### P THINT #### [facility] [address] [address] [address] Ember Teague Chloride [Moles/Vol] 101 mmol/L Normal 98-107 [facility] Comment on above: Performed By: #### P THINT #### [facility] [address] [place] [address] Dr. Ember Teague CO2 [Moles/Vol] 24.3 mmol/L Normal 21.0-32.0 [facility] Comment on above: Performed By: #### P THINT #### [facility] [address] [address] [address] Ember Teague Creatinine [Mass/Vol] 2.84 mg/dL Critically high 0.55-1.02 [facility] Comment on above: Performed By: #### P THINT #### [facility] [address] [address] [address] Ember Teague EGFR-AF MOSOTHO 20 mL/min/1.73m2 Critically low >=60 [facility] Comment on above: Performed By: #### P THINT #### [facility] [address] [address] [address] Ember Teague EGFR-NON AF MOSOTHO 16 mL/min/1.73m2 Critically low >=60 [facility] Comment on above: Performed By: #### P THINT #### [facility] [address] [address] [address] Ember Teague Globulin (S) [Mass/Vol] 3.7 g/dL Normal [facility] Comment on above: Performed By: #### P THINT #### [facility] [address] [address] [address] Ember Teague Glucose [Mass/Vol] 174 mg/dL Critically high 74-106 [facility] Comment on above: Performed By: #### P THINT #### [facility] [address] [address] [address] Ember Teague Potassium [Moles/Vol] 5.1 mmol/L Normal 3.5-5.1 [facility] Comment on above: Performed By: #### P THINT #### [facility] [address] [address] [address] Ember Teague Protein [Mass/Vol] 7.4 g/dL Normal 6.4-8.2 [facility] Comment on above: Performed By: #### P THINT #### [facility] [address] [address] [address] Ember Teague Sodium [Moles/Vol] 133 mmol/L Critically low 136-145 [facility] Comment on above: Performed By: #### P THINT #### [facility] [address] [address] [address] Ember Teague Urea nitrogen [Mass/Vol] 68.0 mg/dL Critically high 7.0-18 .0 [facility] Comment on above: Performed By: #### P THINT #### [facility] [address] [address] [address] Ember Teague Urea nitrogen/Creatinine [Mass ratio] 23.9 mg/mg Normal [facility] Comment on above: Performed By: #### P THINT #### [facility] [address] [address] [address] Ember Teague TROPONIN, HIGH SENSITIVITYon 09-11-2022 HSTROP 9.1 pg/mL Normal 4.0-51.3 [facility] Comment on above: Result Comment: CUT- OFF POINTS HAVE BEEN ESTABLISHED BASED ON THE FOURTH UNIVERSAL DEFINITIONS OF MYOCARDIAL INFARCTION. THE UPPER REFERENCE LIMIT (URL) OF TROPONIN, DEFINED THE 99TH PERCENTILE OF cTnI DISTRIBUTION IN A REFERENCE POPULATION, HAS BEEN CONFIRMED THE DECISION THRESHOLD FOR VA DIAGNOSIS. Performed By: #### P THINT #### [facility] [facility] [address] [place] [address] Dr. Ember Teague UA RANDOM W/MICROSCOPICon BACTERIA NONE SEEN Normal NONE SEEN The [facility] ospital Comment on above: Performed By: #### C VDTBH #### [facility] [address] [place] [address] Dr. Ember Teague Bilirubin Ql (U) Negative Normal NEGATIVE The [facility] Comment on above: Performed By: #### C VDTBH #### [facility] [address] [place] [address] Dr. Ember Teague CAST NONE SEEN Normal NONE SEEN The [facility] Comment on above: Performed By: #### C VDTBH #### [facility] [address] [place] [address] Dr. Ember Teague Clarity (U) CLEAR Normal CLEAR The [facility] Comment on above: Performed By: #### C VDTBH #### [facility] [address] [place] [address] Dr. Ember Teague Color (U) LT. YELLOW Normal YELLOW [facility] Comment on above: Performed By: #### C VDTBH #### [facility] [address] [place] [address] Dr. Ember Teague Crystals LM Nom (Urine sed) NONE SEEN Normal NONE SEE N The [facility] Comment on above: Performed By: #### C VDTBH #### [facility] [address] [place] [address] Dr. Ember Teague Epithelial cells LM Ql (Urine sed) FEW Abnormal N ONE SEEN /RARE The [facility] Comment on above: Performed By: #### C VDTBH #### [facility] [address] [place] [address] Dr. Ember Teague Glucose Ql (U) Negative Normal NEGATIVE The [facility] Comment on above: Performed By: #### C VDTBH #### [facility] [address] [place] [address] Dr. Ember Teague Hemoglobin Ql (U) Negative Normal NEGATIVE The [facility] Comment on above: Performed By: #### C VDTBH #### [facility] [address] [place] [address] Dr. Ember Teague Ketones Ql (U) Negative Normal NEGATIVE The [facility] Comment on above: Performed By: #### C VDTBH #### [facility] [address] [place] [address] Dr. Ember Teague LEUKOCYTES Negative Normal NEGATIVE The [facility] Comment on above: Performed By: #### C VDTBH #### [facility] [address] [place] [address] Dr. Ember Teague MUCOUS NONE SEEN Normal NONE SEEN The [facility] Comment on above: Performed By: #### C VDTBH #### [facility] [address] [place] [address] Dr. Ember Teague Nitrite Ql (U) Negative Normal NEGATIVE The [facility] Comment on above: Performed By: #### C VDTBH #### [facility] [address] [place] [address] Dr. Ember Teague pH (U) 5.5 [pH] Normal 5-9 The [facility] Comment on above: Performed By: #### C VDTBH #### [facility] [address] [place] [address] Dr. Ember Teague RBC NONE SEEN Abnormal 0-2 The [facility] ostal Comment on above: Performed By: #### C VDTBH #### [facility] [address] [place] [address] Dr. Ember Teague SPEC GRAVITY 1.010 Normal 1.005-<=1.025 The [facility] Comment on above: Performed By: #### C VDTBH #### [facility] [address] [place] [address] Dr. Ember Teague UA PROTEIN Negative Normal NEGATIVE/ TRACE The [facility] Comment on above: Performed By: #### C VDTBH #### [facility] [address] [place] [address] Dr. Ember Teague Urobilinogen Qn (U) 0.2 {Esau'U}/dL Normal 0.2 - 1. 0 The [facility] Comment on above: Performed By: #### C VDTBH #### [facility] [address] [place] [address] Dr. Ember Teague WBC NONE SEEN Normal NONE SEEN The [facility] Comment on above: Performed By: #### C VDTBH #### [facility] [address] [place] [address] Dr. Ember Teague CBC AUTO DIFFon 08-13-2022 BASO # 0.0 103/ul Normal 0.0-0.1 The [facility] Comment on above: Performed By: #### C BC #### [facility] [address] [place] [address] Dr. Ember Teague Basophils/100 WBC (Bld) 0.3 % Normal 0.2-2.0 [facility] Comment on above: Performed By: #### C BC #### [facility] [address] [place] [address] Dr. Ember Teague EO # 0.2 103/ul Normal 0.0-0.7 The [facility] Comment on above: Performed By: #### C BC #### [facility] [address] [place] [address] Dr. Ember Teague Eosinophils/100 WBC (Bld) 3.7 % Normal 0.9-7.0 The [facility] Comment on above: Performed By: #### C BC #### [facility] [address] [place] [address] Dr. Ember Teague Erythrocyte distribution wid th (RBC) [Ratio] 15.0 % Normal 11.0-15.0 The [facility] Comment on above: Performed By: #### C BC #### [facility] [address] [place] [address] Dr. Ember Teague Hematocrit (Bld) [Volume fraction] 27.9 % Critically low 36.0-48.0 The [facility] Comment on above: Performed By: #### C BC #### [facility] [address] [place] [address] Dr. Ember Teague Hemoglobin (Bld) [Mass/Vol] 9.7 g/dL Critically low 12.0 -16.0 The [facility] Comment on above: Performed By: #### C BC #### [facility] [address] [place] [address] Dr. Ember Teague IG # 0.01 10e3/ul Normal 0.00-0.03 [facility] Comment on above: Performed By: #### C BC #### [facility] [address] [place] [address] Dr. Ember Teague IG % 0.2 % Normal 0.0-0.5 The [facility] Comment on above: Performed By: #### C BC #### [facility] [address] [place] [address] Dr. Ember Teague LYMPH # 1.9 103/ul Normal 1.2-3.8 The [facility] Comment on above: Performed By: #### C BC #### [facility] [address] [place] [address] Dr. Ember Teague Lymphocytes/100 WBC (Bld) 32.2 % Normal 20.5-60.0 The [facility] Comment on above: Performed By: #### C BC #### [facility] [address] [place] [address] Dr. Ember Teague MANUAL DIFF REQ NO Normal The [facility] Comment on above: Performed By: #### C BC #### [facility] [address] [place] [address] Dr. Ember Teague MCH (RBC) [Entitic mass] 31.4 pg Normal 26.7-34.0 The [facility] Comment on above: Performed By: #### C BC #### [facility] [address] [place] [address] Dr. Ember Teague MCHC (RBC) [Mass/Vol] 34.8 g/dL Normal 29.9-35.2 The [facility] Comment on above: Performed By: #### C BC #### [facility] [address] [place] [address] Dr. Ember Teague MCV (RBC) [Entitic vol] 90.3 fL Normal 81.0-99.0 [facility] Comment on above: Performed By: #### C BC #### [facility] [address] [place] [address] Dr. Ember Teague MONO # 0.6 103/ul Normal 0.3-0.8 The [facility] Comment on above: Performed By: #### C BC #### [facility] [address] [place] [address] Dr. Ember Teague Monocytes/100 WBC (Bld) 9.8 % Normal 1.7-12.0 [facility] Comment on above: Performed By: #### C BC #### [facility] [address] [place] [address] Dr. Ember Teague NEUT # 3.2 103/ul Normal 1.4-6.5 The [facility] Comment on above: Performed By: #### C BC #### [facility] [address] [place] [address] Dr. Ember Teague Neutrophils/100 WBC (Bld) 53.8 % Normal 43.0-75.0 [facility] Comment on above: Performed By: #### C BC #### [facility] [address] [place] [address] Dr. Ember Teague Platelet mean volume (Bld) [ Entitic vol] 10.0 fL Normal 9.5-13.5 The [facility] Comment on above: Performed By: #### C BC #### [facility] [address] [place] [address] Dr. Ember Teague PLT 194 103/ul Normal 150-450 The [facility] Comment on above: Performed By: #### C BC #### [facility] [address] [place] [address] Dr. Ember Teague RBC 3.09 106/ul Critically low 4.20-5.40 The [facility] Comment on above: Performed By: #### C BC #### [facility] [address] [place] [address] Dr. Ember Teague WBC 6.0 103/ul Normal 4.0-11.0 The [facility] Comment on above: Performed By: #### C BC #### [facility] [address] [place] [address] Dr. Ember Teague PTH INTACTon 06-26-2022 PTH, Intact 39 pg/mL Normal 15-65 The [facility] Comment on above: Performed By: #### P THINT #### [facility] [address] [place] [address] Dr. Ember Teague CBC AUTO DIFFon 06-25-2022 BASO # 0.1 103/ul Normal 0.0-0.1 The [facility] Comment on above: Performed By: #### C VDTBH #### [facility] [address] [place] [address] Dr. Ember Teague Basophils/100 WBC (Bld) 0.6 % Normal 0.2-2.0 [facility] Comment on above: Performed By: #### C VDTBH #### [facility] [address] [place] [address] Dr. Ember Teague EO # 0.2 103/ul Normal 0.0-0.7 The [facility] Comment on above: Performed By: #### C VDTBH #### [facility] [address] [place] [address] Dr. Ember Teague Eosinophils/100 WBC (Bld) 3.0 % Normal 0.9-7.0 The [facility] Comment on above: Performed By: #### C VDTBH #### [facility] [address] [place] [address] Dr. Ember Teague Erythrocyte distribution wid th (RBC) [Ratio] 14.2 % Normal 11.0-15.0 The [facility] Comment on above: Performed By: #### C VDTBH #### [facility] [address] [place] [address] Dr. Ember Teague Hematocrit (Bld) [Volume fraction] 30.9 % Critically low 36.0-48.0 [facility] Comment on above: Performed By: #### C VDTBH #### [facility] [address] [place] [address] Dr. Ember Teague Hemoglobin (Bld) [Mass/Vol] 10.6 g/dL Critically low 12.0 -16.0 [facility] Comment on above: Performed By: #### C VDTBH #### [facility] [address] [place] [address] Dr. Ember Teague IG # 0.04 10e3/ul Critically high 0.00-0.03 [facility] Comment on above: Performed By: #### C VDTBH #### [facility] [address] [place] [address] Dr. Ember Teague IG % 0.5 % Normal 0.0-0.5 [facility] Comment on above: Performed By: #### C VDTBH #### [facility] [address] [place] [address] Dr. Ember Teague LYMPH # 2.2 103/ul Normal 1.2-3.8 [facility] Comment on above: Performed By: #### C VDTBH #### [facility] [address] [place] [address] Dr. Ember Teague Lymphocytes/100 WBC (Bld) 27.0 % Normal 20.5-60.0 [facility] Comment on above: Performed By: #### C VDTBH #### [facility] [address] [place] [address] Dr. Ember Teague MANUAL DIFF REQ NO Normal [facility] Comment on above: Performed By: #### C VDTBH #### [facility] [address] [place] [address] Dr. Ember Teague MCH (RBC) [Entitic mass] 31.2 pg Normal 26.7-34.0 [facility] Comment on above: Performed By: #### C VDTBH #### [facility] [address] [place] [address] Dr. Ember Teague MCHC (RBC) [Mass/Vol] 34.3 g/dL Normal 29.9-35.2 [facility] Comment on above: Performed By: #### C VDTBH #### [facility] [address] [place] [address] Dr. Ember Teague MCV (RBC) [Entitic vol] 90.9 fL Normal 81.0-99.0 [facility] Comment on above: Performed By: #### C VDTBH #### [facility] [address] [place] [address] Dr. Ember Teague MONO # 0.7 103/ul Normal 0.3-0.8 The [facility] Comment on above: Performed By: #### C VDTBH #### [facility] [address] [place] [address] Dr. Ember Teague Monocytes/100 WBC (Bld) 9.2 % Normal 1.7-12.0 [facility] Comment on above: Performed By: #### C VDTBH #### [facility] [address] [place] [address] Dr. Ember Teague NEUT # 4.8 103/ul Normal 1.4-6.5 [facility] Comment on above: Performed By: #### C VDTBH #### [facility] [address] [place] [address] Dr. Ember Teague Neutrophils/100 WBC (Bld) 59.7 % Normal 43.0-75.0 [facility] Comment on above: Performed By: #### C VDTBH #### [facility] [address] [place] [address] Dr. Ember eTague Platelet mean volume (Bld) [Entitic vol] 9.3 fL Critically low 9.5-13.5 The [facility] Comment on above: Performed By: #### C VDTBH #### [facility] [address] [place] [address] Dr. Ember Teague PLT 227 103/ul Normal 150-450 The [facility] Comment on above: Performed By: #### C VDTBH #### [facility] [address] [place] [address] Dr. Ember Teague RBC 3.40 106/ul Critically low 4.20-5.40 The [facility] Comment on above: Performed By: #### C VDTBH #### [facility] [address] [address] [address] Ember Teague WBC 8.0 103/ul Normal 4.0-11.0 [facility] Comment on above: Performed By: #### C VDTBH #### [facility] [address] [address] [address] Ember Teague MRI LSPINE WO CONon 06-25-20 22 MRI LSPINE WO CON EXAMINATION: MRI LSP INE WO CON HISTORY: Collapse of vertebra of lumbar region with delayed healing; acute lumbar spine pain COMPARISON: CT lumbar spine 06/01/2022, MRI lumbar spine 08/31/2016 TECHNIQUE: A variety of imaging planes and parameters were utilized for visualization of suspected pathology. FINDINGS: For the purposes of numbering, sagittal T2 image # 8 extends from the T10 vertebral body superiorly to the S2-S3 level inferiorly. PARASPINAL AREA: Right renal cyst. BONES: L1 mild/moderate compression fracture without marrow edema consistent with remote injury. CORD/CAUDA EQUINA: Normal caliber, contour, and signal intensity. DISC LEVELS: 12-L1: Early degenerative disc disease is present without focal protrusion or neural impingement. L1-L2: Early degenerative disc disease is present without focal protrusion or neural impingement. L2-L3: Moderate central canal and mild bilateral foramen narrowing. Mild to moderate diffuse disc bulging without disc at reduction. No significant facet arthropathy. L3-L4: Moderate central canal narrowing and mild bilateral foramen narrowing. Moderate diffuse disc bulging without disc height reduction. Mild degenerative facet arthropathy and ligamentum flavum thickening. L4-L5: Mild central canal and bilateral foramen narrowing. Mild diffuse disc bulging without disc height reduction. Mild degenerative facet arthropathy. L5-S1: Small posterior central disc protrusion without significant central canal or foramen narrowing. Mild disc height reduction and minimal degenerative facet arthropathy. IMPRESSION: 1. L2-L3, L3-L4 moderate central canal narrowing secondary to moderate diffuse disc bulging and mild degenerative facet arthropathy. Mild foramen narrowing at both levels. 2. Chronic L1 mild-moderate compression fracture. Electronically authenticated by: YANET HUERTA Date: 2022-06-25 08:45 Normal [facility] RENAL FUNCTION PANELon 06-25 Albumin [Mass/Vol] 3.9 g/dL Normal 3.4-5.0 [facility] Comment on above: Performed By: #### P THINT #### [facility] [address] [address] [address] Ember Teague Calcium [Mass/Vol] 9.5 mg/dL Normal 8.5-10.1 The [facility] Comment on above: Performed By: #### P THINT #### [facility] [address] [address] [address] Ember Teague Chloride [Moles/Vol] 102 mmol/L Normal 98-107 [facility] Comment on above: Performed By: #### P THINT #### [facility] [address] [address] [address] Ember Teague CO2 [Moles/Vol] 23.8 mmol/L Normal 21.0-32.0 [facility] Comment on above: Performed By: #### P THINT #### [facility] [address] [address] [address] Ember Teague Creatinine [Mass/Vol] 1.75 mg/dL Critically high 0.55-1.02 [facility] Comment on above: Performed By: #### P THINT #### [facility] [address] [address] [address] Ember Teague EGFR-AF MOSOTHO 34 mL/min/1.73m2 Critically low >=60 [facility] Comment on above: Performed By: #### P THINT #### [facility] [address] [address] [address] Ember Teague EGFR-NON AF MOSOTHO 28 mL/min/1.73m2 Critically low >=60 [facility] Comment on above: Performed By: #### P THINT #### [facility] [address] [address] [address] Ember Teague Glucose [Mass/Vol] 199 mg/dL Critically high 74-106 [facility] Comment on above: Performed By: #### P THINT #### [facility] [address] [address] [address] Ember Teague Phosphate [Mass/Vol] 4.3 mg/dL Normal 2.6-4.7 [facility] Comment on above: Performed By: #### P THINT #### [facility] [address] [place] [address] Dr. Ember Teague Potassium [Moles/Vol] 4.9 mmol/L Normal 3.5-5.1 [facility] Comment on above: Performed By: #### P THINT #### [facility] [address] [place] [address] Dr. Ember Teague Sodium [Moles/Vol] 135 mmol/L Critically low 136-145 [facility] Comment on above: Performed By: #### P THINT #### [facility] [address] [place] [address] Dr. Ember Teague Urea nitrogen [Mass/Vol] 34.0 mg/dL Critically high 7.0-18 .0 [facility] Comment on above: Performed By: #### P THINT #### [facility] [address] [place] [address] Dr. Ember Teague VITAMIN D 25 OHon 06-25-2022 VIT D 25-OH 40.6 ng/mL Normal [facility] Comment on above: Performed By: #### P THINT #### [facility] [address] [place] [address] Dr. Ember Teague VIT D RANGES SEE BELOW Normal [facility] Comment on above: Result Comment: <20 ng/mL Vit D deficient 20 - <30 ng/mL Vit D insufficient 30 - 100 ng/mL Vit D sufficient >100 ng/mL Potential Toxicity Performed By: #### P THINT #### [facility] [address] [place] [address] Dr. Ember Teague [facility]07 SARS-CoV-2 (COVID-19) RNA ALEXX+probe Ql (Unsp spec) Not detected Normal NOT DETECTED [facility] Comment on above: Result Comment: This test is not yet approved or cleared by the [place] FDA. When there are no FDA-approved or cleared tests available, and other criteria are met, FDA can make tests available under an emergency access mechanism called an Emergency Use Authorization (EUA). The EUA for this test is supported by the [place] Inspector of Health and Human Service's (HHS's) declaration that circumstances exist to justify the emergency use of in vitro diagnostics for the detection and/or diagnosis of the virus that causes COVID-19. This EUA will remain in effect (meaning this test can be used) for the duration of the COVID-19 declaration justifying emergency of IVDs, unless it is terminated or revoked by FDA (after which the test may no longer be used). When diagnostic testing is negative, the possibility of a false negative should be considered in the context of a patient's recent exposures and the presence of clinical signs and symptoms consistent with SARS-CoV-2. Performed By: #### C [facility] #### [facility] [address] [place] [address] LSPINE WO CONon 2 CT LSPINE WO CON EXAMINATION: CT LSPI NE WO CON, 06/01/2022 7:48 AM EDT HISTORY: Collapse of vertebra ; acute lumbar pain since falling one month ago; history of L1 compression fracture COMPARISON: XR lumbar spine 05/21/2022, MRI lumbar spine 08/31/2016 TECHNIQUE: CT of the lumbar spine was performed without IV contrast. CT dose reduction technique was used, including Automated Exposure Control. FINDINGS: PARASPINAL AREA: Normal with no visible mass. BONES: Anterior wedging of L1 vertebral body with loss of approximately 40% of its height CERVICAL DISC LEVELS: 12-L1: No significant disc/facet abnormality, spinal stenosis, or foraminal stenosis. L1-L2: Early degenerative disc disease is present without focal protrusion or neural impingement. L2-L3: Mild central canal and bilateral foramen narrowing secondary to mild diffuse disc bulging. L3-L4: Mild central canal and bilateral foramen narrowing secondary to mild diffuse disc bulging. L4-L5: Mild central canal and bilateral foramen narrowing secondary to mild diffuse disc bulging. L5-S1: Mild central canal and bilateral foramen narrowing secondary to mild diffuse disc bulging. Mild disc at reduction. IMPRESSION: 1. L1 moderate compression fracture without increased density of the trabecula suggesting this is chronic. Findings have progressed slightly since 2016. 2. Multilevel mild central canal and foramen narrowing secondary to mild diffuse disc bulging. Mild disc at reduction L5-S1. 3. Minimal degenerative facet arthropathy. 4. Consider MRI for further evaluation if symptoms persist. Electronically authenticated by: YANET HUERTA Date: 2022-06-01 18:02 Normal [facility] XR LSPINE MIN 4 VIEWSon 05-07 XR LSPINE MIN 4 VIEWS EXAMINATION: XR LS PINE MIN 4 VIEWS HISTORY: Low back pain , acute; no known injury COMPARISON: XR chest 09/19/2018 FINDINGS: BONES: Mild right convex curvature lumbar spine. Moderate compression fracture of L1. Multilevel degenerative endplate osteophytes projecting anteriorly. Mild grade 1 retrolisthesis of L3 on 4. DISC SPACES: Multilevel mild degenerative changes. PARASPINOUS: Marked atherosclerotic disease of aorta without visible aneurysm. OTHER: Negative. IMPRESSION: 1. L1 moderate compression fracture, slightly progressed compared to 09/19/2018 (most recent study showing this area). 2. Multilevel-moderate mild degenerative changes. Electronically authenticated by: YANET HUERTA Date: 2022-05-21 15:25 Normal [facility] l PTH INTACTon 05-03-2022 PTH, Intact 60 pg/mL Normal 15-65 [facility] Comment on above: Performed By: #### C VDTB #### [facility] [address] [place] [address] Dr. Ember Teague VIT D 25-OH LABCORPon 2021 Vitamin D, 25-Hydroxy 26.1 ng/mL Critically low 30.0-100.0 [facility] Comment on above: Result Comment: Sara min D deficiency has been defined by the Wilson of [employer] and an Endocrine Society practice guideline as a level of serum 25-OH vitamin D less than 20 ng/mL (1,2). The Endocrine Society went on to further define vitamin D insufficiency as a level between 21 and 29 ng/mL (2). 1. IOM (Wilson of Medicine). 2010. Dietary reference intakes for calcium and D. [place]: The National Academies Press. 2. Sherice MF, Wendy WILSON, Huan ZHONG, et al. Evaluation, treatment, and prevention of vitamin D deficiency: an Endocrine Society clinical practice guideline. JCEM. 2010; 96(7):1911-30. Performed By: #### R ENAL #### [facility] [address] [place] [address] Dr. Ember Teague FERRITINon 05-02-2022 Ferritin [Mass/Vol] 590.0 ng/mL Critically high 8.0-252.0 [facility] Comment on above: Performed By: #### R ENAL #### [facility] [address] [place] [address] Dr. Ember Teague HEMOGRAM AND PLATELon 2021 Hematocrit (Bld) [Volume fraction] 28.4 % Critically low 36.0-48.0 [facility] Comment on above: Performed By: #### C VDTBH #### [facility] [address] [place] [address] Dr. Ember Teague Hemoglobin (Bld) [Mass/Vol] 9.6 g/dL Critically low 12.0 -16.0 [facility] Comment on above: Performed By: #### C VDTBH #### [facility] [address] [place] [address] Dr. Ember Teague MCH (RBC) [Entitic mass] 31.0 pg Normal 26.7-34.0 [facility] Comment on above: Performed By: #### C VDTBH #### [facility] [address] [place] [address] Dr. Ember Teague MCHC (RBC) [Mass/Vol] 33.8 g/dL Normal 29.9-35.2 [facility] Comment on above: Performed By: #### C VDTBH #### [facility] [address] [place] [address] Dr. Ember Teague MCV (RBC) [Entitic vol] 91.6 fL Normal 81.0-99.0 [facility] Comment on above: Performed By: #### C VDTBH #### [facility] [address] [place] [address] Dr. Ember Teague PLT 189 103/ul Normal 150-450 [facility] Comment on above: Performed By: #### C VDTBH #### [facility] [address] [place] [address] Dr. Ember Teague RBC 3.10 106/ul Critically low 4.20-5.40 [facility] Comment on above: Performed By: #### C VDTBH #### [facility] [address] [place] [address] Dr. Ember Teague WBC 6.2 103/ul Normal 4.0-11.0 [facility] Comment on above: Performed By: #### C VDTBH #### [facility] [address] [place] [address] Dr. Ember Teague IRON AND TIBCon 05-02-2022 % SATURATION 34.3 % Normal [facility] Comment on above: Performed By: #### R ENAL #### [facility] [address] [place] [address] Dr. Ember Teague Iron [Mass/Vol] 69.0 ug/dL Normal 50.0-170.0 [facility] Comment on above: Performed By: #### R ENAL #### [facility] [address] [place] [address] Dr. Ember Teague TIBC DIRECT 201.0 ug/dL Critically low 250.0-450.0 [facility] Comment on above: Performed By: #### R ENAL #### [facility] [address] [place] [address] Dr. Ember Teague MAGNESIUMon 05-02-2022 Magnesium [Mass/Vol] 1.7 mg/dL Critically low 1.8-2.4 [facility] Comment on above: Performed By: #### C VDTBH #### [facility] [address] [place] [address] Dr. Ember Teague RENAL FUNCTION PANELon 05-02 Albumin [Mass/Vol] 3.6 g/dL Normal 3.4-5.0 [facility] Comment on above: Performed By: #### C VDTBH #### [facility] [address] [address] [address] Ember Teague Calcium [Mass/Vol] 9.2 mg/dL Normal 8.5-10.1 [facility] Comment on above: Performed By: #### C VDTBH #### [facility] [address] [address] [address] Ember Teague Chloride [Moles/Vol] 107 mmol/L Normal 98-107 [facility] Comment on above: Performed By: #### C VDTBH #### [facility] [address] [place] [address] Dr. Ember Teague CO2 [Moles/Vol] 21.2 mmol/L Normal 21.0-32.0 [facility] Comment on above: Performed By: #### C VDTBH #### [facility] [address] [place] [address] Dr. Ember Teague Creatinine [Mass/Vol] 1.75 mg/dL Critically high 0.55-1.02 [facility] Comment on above: Performed By: #### C VDTBH #### [facility] [address] [place] [address] Dr. Ember Teague EGFR-AF MOSOTHO 34 mL/min/1.73m2 Critically low >=60 [facility] Comment on above: Performed By: #### C VDTBH #### [facility] [address] [place] [address] Dr. Ember Teague EGFR-NON AF MOSOTHO 28 mL/min/1.73m2 Critically low >=60 [facility] Comment on above: Performed By: #### C VDTBH #### [facility] [address] [place] [address] Dr. Ember Teague Glucose [Mass/Vol] 193 mg/dL Critically high 74-106 [facility] Comment on above: Performed By: #### C VDTBH #### [facility] [address] [place] [address] Dr. Ember Teague Phosphate [Mass/Vol] 4.2 mg/dL Normal 2.6-4.7 [facility] Comment on above: Performed By: #### C VDTBH #### [facility] [address] [place] [address] Dr. Ember Teague Potassium [Moles/Vol] 5.1 mmol/L Normal 3.5-5.1 [facility] Comment on above: Performed By: #### C VDTBH #### [facility] [address] [place] [address] Dr. Ember Teague Sodium [Moles/Vol] 139 mmol/L Normal 136-145 [facility] Comment on above: Performed By: #### C VDTBH #### [facility] [address] [place] [address] Dr. Ember Teague Urea nitrogen [Mass/Vol] 34.0 mg/dL Critically high 7.0-18 .0 [facility] Comment on above: Performed By: #### C VDTBH #### [facility] [address] [place] [address] Dr. Ember Teague UA RANDOM W/MICROSCOPICon BACTERIA SMALL Abnormal NONE SEEN [facility] Comment on above: Performed By: #### C VDTBH #### [facility] [address] [place] [address] Dr. Ember Teague Bilirubin Ql (U) Negative Normal NEGATIVE [facility] Comment on above: Performed By: #### C VDTBH #### [facility] [address] [place] [address] Dr. Ember Teague CAST NONE SEEN Normal NONE SEEN [facility] Comment on above: Performed By: #### C VDTBH #### [facility] [address] [place] [address] Dr. Ember Teague Clarity (U) CLEAR Normal CLEAR [facility] Comment on above: Performed By: #### C VDTBH #### [facility] [address] [place] [address] Dr. Ember Teague Color (U) LT. YELLOW Normal YELLOW [facility] Comment on above: Performed By: #### C VDTBH #### [facility] [address] [place] [address] Dr. Ember Teague Crystals LM Nom (Urine sed) NONE SEEN Normal NONE SEE N [facility] Comment on above: Performed By: #### C VDTBH #### [facility] [address] [place] [address] Dr. Ember Teague Epithelial cells LM Ql (Urin e sed) MODERATE Abnormal NONE SEEN /RARE [facility] Comment on above: Performed By: #### C VDTBH #### [facility] [address] [place] [address] Dr. Ember Teague Glucose Ql (U) Negative Normal NEGATIVE [facility] Comment on above: Performed By: #### C VDTBH #### [facility] [address] [place] [address] Dr. Ember Teague Hemoglobin Ql (U) Negative Normal NEGATIVE [facility] Comment on above: Performed By: #### C VDTBH #### [facility] [address] [place] [address] Dr. Ember Teague Ketones Ql (U) Negative Normal NEGATIVE [facility] Comment on above: Performed By: #### C VDTBH #### [facility] [address] [place] [address] Dr. Ember Teageu LEUKOCYTES TRACE Abnormal NEGATIVE [facility] Comment on above: Performed By: #### C VDTBH #### [facility] [address] [place] [address] Dr. Ember Teague MUCOUS NONE SEEN Normal NONE SEEN [facility] Comment on above: Performed By: #### C VDTBH #### [facility] [address] [place] [address] Dr. Ember Teague Nitrite Ql (U) Negative Normal NEGATIVE [facility] Comment on above: Performed By: #### C VDTBH #### [facility] [address] [place] [address] Dr. Ember Teague pH (U) 5.0 [pH] Normal 5-9 [facility] Comment on above: Performed By: #### C VDTBH #### [facility] [address] [place] [address] Dr. Ember Teague RBC NONE SEEN Abnormal 0-2 [facility] Comment on above: Performed By: #### C VDTBH #### [facility] [address] [place] [address] Dr. Ember Teague SPEC GRAVITY 1.015 Normal 1.005-<=1.025 [facility] Comment on above: Performed By: #### C VDTBH #### [facility] [address] [place] [address] Dr. Ember Teague UA PROTEIN TRACE Normal NEGATIVE/ TRACE [facility] Comment on above: Performed By: #### C VDTBH #### [facility] [address] [place] [address] Dr. Ember Teague Urobilinogen Qn (U) 0.2 {Esau'U}/dL Normal 0.2 - 1. 0 [facility] Comment on above: Performed By: #### C VDTBH #### [facility] [address] [place] [address] Dr. Ember Teague WBC 0-2 Abnormal NONE SEEN [facility] Comment on above: Performed By: #### C VDTBH #### [facility] [address] [place] [address] Dr. Ember Teague URIC ACID SERUMon 05-02-2022 Urate [Mass/Vol] 4.4 mg/dL Normal 2.6-6.0 [facility] Comment on above: Performed By: #### C BC #### [facility] [address] [place] [address] Dr. Ember Teague URINE T PROTEIN CREAT RATIOo n 05-02-2022 Protein (U) [Mass/Vol] 33.7 mg/dL Critically high <=12.0 [facility] Comment on above: Performed By: #### C VDTBH #### [facility] [address] [place] [address] Dr. Ember Teague UR PROT CREAT RAT 0.69 Normal [facility] Comment on above: Performed By: #### C VDTBH #### [facility] [address] [address] [address] Ebmer Teague URINE CREAT 48.93 mg/dL Normal 20.00-300.00 [facility] Comment on above: Performed By: #### C [facility] #### [facility] [address] [address] [address] Ember Teague Vital Signs Date Time Vital Sign Value Performing Clinician Facility 08-27-2023 09:40-0500 Body height 168.91 cm Óscarduc Sonipj Other [facility] Other 08-27-2023 09:40-0500 Body mass index (BMI) [Ratio] 30.2 kg/m2 Mary Anne Mensahs Other [facility] Other 08-27-2023 09:40-0500 Body temperature 96.7 [degF] Óscarduc Rodricks Other [facility] Other 08-27-2023 09:40-0500 Body weight 86.18 kg Mary Anne Mensahs Other [facility] Other 08-27-2023 09:40-0500 Diastolic blood pressure 72 mm[Hg] Óscarduc Rodricks Other [facility] Other 08-27-2023 09:40-0500 Respiratory rate 18 /min Mary Anne Mensahs Other [facility] Other 08-27-2023 09:40-0500 SaO2% (BldA) [Mass fraction] 98 % Mary Anne Mensahs Other [facility] Other 08-27-2023 09:40-0500 Systolic blood pressure 153 mm[Hg] Mary Anne Sonipj Other [facility] Other 08-15-2023 10:20-0500 Body height 168.91 cm Ron Doreen Other [facility] Other 08-15-2023 10:20-0500 Body mass index (BMI) [Ratio] 30.2 kg/m2 Ron Doreen Other [facility] Other 08-15-2023 10:20-0500 Body temperature 97.1 [degF] Ron Doreen Other [facility] Other 08-15-2023 10:20-0500 Body weight 86.18 kg Ron Doreen Other [facility] Other 08-15-2023 10:20-0500 Diastolic blood pressure 79 mm[Hg] Ron Doreen Other [facility] Other 08-15-2023 10:20-0500 Respiratory rate 18 /min Ron Doreen Other [facility] Other 08-15-2023 10:20-0500 SaO2% (BldA) [Mass fraction] 98 % Ron Doreen Other [facility] Other 08-15-2023 10:20-0500 Systolic blood pressure 164 mm[Hg] Ron Doreen Other [facility] Other 08-13-2023 15:40-0500 Body height 168.91 cm Ron Doreen Other [facility] Other 08-13-2023 15:40-0500 Body mass index (BMI) [Ratio] 30.24 kg/m2 Ron Doreen Other [facility] Other 08-13-2023 15:40-0500 Body temperature 97.2 [degF] Ron Doreen Other [facility] Other 08-13-2023 15:40-0500 Body weight 86.27 kg Ron Doreen Other [facility] Other 08-13-2023 15:40-0500 Diastolic blood pressure 79 mm[Hg] Rno Doreen Other [facility] Other 08-13-2023 15:40-0500 Respiratory rate 18 /min Ron Doreen Other [facility] Other 08-13-2023 15:40-0500 SaO2% (BldA) [Mass fraction] 98 % Ron Doreen Other [facility] Other 08-13-2023 15:40-0500 Systolic blood pressure 186 mm[Hg] Ron Doreen Other [facility] Other 08-01-2023 13:00-0400 Body height 168.91 cm Ron Doreen Other [facility] Other 08-01-2023 13:00-0400 Body mass index (BMI) [Ratio] 30.55 kg/m2 Ron Doreen Other [facility] Other 08-01-2023 13:00-0400 Body temperature 97.8 [degF] Ron Doreen Other [facility] Other 08-01-2023 13:00-0400 Body weight 87.18 kg Ron Doreen Other [facility] Other 08-01-2023 13:00-0400 Diastolic blood pressure 72 mm[Hg] Ron Doreen Other [facility] Other 08-01-2023 13:00-0400 Respiratory rate 18 /min Ron Doreen Other [facility] Other 08-01-2023 13:00-0400 SaO2% (BldA) [Mass fraction] 98 % Ron Doreen Other [facility] Other 08-01-2023 13:00-0400 Systolic blood pressure 160 mm[Hg] Ron Doreen Other [facility] Other 06-24-2023 11:40-0400 Body height 168.91 cm Ron Doreen Other [facility] Other 06-24-2023 11:40-0400 Body mass index (BMI) [Ratio] 29.89 kg/m2 Ron Doreen Other [facility] Other 06-24-2023 11:40-0400 Body temperature 97.3 [degF] Ron Doreen Other [facility] Other 06-24-2023 11:40-0400 Body weight 85.28 kg Ron Doreen Other [facility] Other 06-24-2023 11:40-0400 Diastolic blood pressure 75 mm[Hg] Ron Doreen Other [facility] Other 06-24-2023 11:40-0400 Respiratory rate 18 /min Ron Doreen Other [facility] Other 06-24-2023 11:40-0400 SaO2% (BldA) [Mass fraction] 99 % Ron Doreen Other [facility] Other 06-24-2023 11:40-0400 Systolic blood pressure 129 mm[Hg] Ron Doreen Other [facility] Other 06-06-2023 15:20-0400 Body height 168.91 cm Ron Doreen Other [facility] Other 06-06-2023 15:20-0400 Body mass index (BMI) [Ratio] 29.92 kg/m2 Ron Doreen Other [facility] Other 06-06-2023 15:20-0400 Body temperature 96.5 [degF] Ron Doreen Other [facility] Other 06-06-2023 15:20-0400 Body weight 85.37 kg Ron Doreen Other [facility] Other 06-06-2023 15:20-0400 Diastolic blood pressure 49 mm[Hg] Ron Doreen Other [facility] Other 06-06-2023 15:20-0400 Respiratory rate 18 /min Ron Doreen Other [facility] Other 06-06-2023 15:20-0400 SaO2% (BldA) [Mass fraction] 99 % Ron Doreen Other [facility] Other 06-06-2023 15:20-0400 Systolic blood pressure 128 mm[Hg] Ron Doreen Other [facility] Other 04-30-2023 11:40-0400 Body height 168.91 cm Ron Doreen Other [facility] Other 04-30-2023 11:40-0400 Body mass index (BMI) [Ratio] 30.52 kg/m2 Ron Droeen Other [facility] Other 04-30-2023 11:40-0400 Body temperature 96.9 [degF] Ron Doreen Other [facility] Other 04-30-2023 11:40-0400 Body weight 87.09 kg Ron Doreen Other [facility] Other 04-30-2023 11:40-0400 Diastolic blood pressure 80 mm[Hg] Ron Doreen Other [facility] Other 04-30-2023 11:40-0400 Respiratory rate 18 /min Ron Doreen Other [facility] Other 04-30-2023 11:40-0400 SaO2% (BldA) [Mass fraction] 98 % Ron Doreen Other [facility] Other 04-30-2023 11:40-0400 Systolic blood pressure 150 mm[Hg] Ron Doreen Other [facility] Other 04-06-2023 09:00-0400 Body height 168.91 cm Ron Doreen Other [facility] Other 04-06-2023 09:00-0400 Body mass index (BMI) [Ratio] 30.36 kg/m2 Ron Doreen Other [facility] Other 04-06-2023 09:00-0400 Body weight 86.64 kg Ron Doreen Other [facility] Other 04-06-2023 09:00-0400 Diastolic blood pressure 54 mm[Hg] Ron Doreen Other [facility] Other 04-06-2023 09:00-0400 Respiratory rate 18 /min Ron Doreen Other [facility] Other 04-06-2023 09:00-0400 SaO2% (BldA) [Mass fraction] 98 % Ron Doreen Other [facility] Other 04-06-2023 09:00-0400 Systolic blood pressure 144 mm[Hg] Ron Doreen Other [facility] Other 04-02-2023 14:40-0400 Body height 168.91 cm Ron Doreen Other [facility] Other 04-02-2023 14:40-0400 Body mass index (BMI) [Ratio] 30.55 kg/m2 Ron Doreen Other [facility] Other 04-02-2023 14:40-0400 Body temperature 97 [degF] Ron Doreen Other [facility] Other 04-02-2023 14:40-0400 Body weight 87.18 kg Ron Doreen Other [facility] Other 04-02-2023 14:40-0400 Diastolic blood pressure 76 mm[Hg] Ron Doreen Other [facility] Other 04-02-2023 14:40-0400 Respiratory rate 18 /min Ron Doreen Other [facility] Other 04-02-2023 14:40-0400 SaO2% (BldA) [Mass fraction] 98 % Ron Doreen Other [facility] Other 04-02-2023 14:40-0400 Systolic blood pressure 183 mm[Hg] Ron Doreen Other [facility] Other 03-07-2023 09:20-0400 Body height 168.91 cm Ron Doreen Other [facility] Other 03-07-2023 09:20-0400 Body mass index (BMI) [Ratio] 30.52 kg/m2 Ron Doreen Other [facility] Other 03-07-2023 09:20-0400 Body temperature 97.1 [degF] Ron Doreen Other [facility] Other 03-07-2023 09:20-0400 Body weight 87.09 kg Ron Doreen Other [facility] Other 03-07-2023 09:20-0400 Diastolic blood pressure 72 mm[Hg] Ron Doreen Other [facility] Other 03-07-2023 09:20-0400 Respiratory rate 18 /min Ron Doreen Other [facility] Other 03-07-2023 09:20-0400 SaO2% (BldA) [Mass fraction] 97 % Ron Doreen Other [facility] Other 03-07-2023 09:20-0400 Systolic blood pressure 130 mm[Hg] Ron Doreen Other [facility] Other 12-20-2022 13:20-0400 Body height 168.91 cm Ron Doreen Other [facility] Other 12-20-2022 13:20-0400 Body mass index (BMI) [Ratio] 30.68 kg/m2 Ron Doreen Other [facility] Other 12-20-2022 13:20-0400 Body temperature 97.1 [degF] Ron Doreen Other [facility] Other 12-20-2022 13:20-0400 Body weight 87.54 kg Ron Doreen Other [facility] Other 12-20-2022 13:20-0400 Diastolic blood pressure 72 mm[Hg] Ron Doreen Other [facility] Other 12-20-2022 13:20-0400 Respiratory rate 18 /min Ron Doreen Other [facility] Other 12-20-2022 13:20-0400 SaO2% (BldA) [Mass fraction] 99 % Ron Doreen Other [facility] Other 12-20-2022 13:20-0400 Systolic blood pressure 139 mm[Hg] Ron Doreen Other [facility] Other 11-05-2022 14:00-0500 Body height 168.91 cm Ron Doreen Other [facility] Other 11-05-2022 14:00-0500 Body mass index (BMI) [Ratio] 30.59 kg/m2 Ron Doreen Other [facility] Other 11-05-2022 14:00-0500 Body temperature 96.8 [degF] Ron Doreen Other [facility] Other 11-05-2022 14:00-0500 Body weight 87.27 kg Ron Doreen Other [facility] Other 11-05-2022 14:00-0500 Diastolic blood pressure 72 mm[Hg] Ron Doreen Other [facility] Other 11-05-2022 14:00-0500 Respiratory rate 18 /min Ron Doreen Other [facility] Other 11-05-2022 14:00-0500 SaO2% (BldA) [Mass fraction] 98 % Ron Doreen Other [facility] Other 11-05-2022 14:00-0500 Systolic blood pressure 157 mm[Hg] Ron Doreen Other [facility] Other 09-27-2022 16:00-0500 Body height 168.91 cm Jana Monson Other [facility] Other 09-27-2022 16:00-0500 Body mass index (BMI) [Ratio] 30.55 kg/m2 Jana Monson Other [facility] Other 09-27-2022 16:00-0500 Body temperature 96.8 [degF] Jana Monson Other [facility] Other 09-27-2022 16:00-0500 Body weight 87.18 kg Jana Monson Other [facility] Other 09-27-2022 16:00-0500 Diastolic blood pressure 73 mm[Hg] Jana Monson Other [facility] Other 09-27-2022 16:00-0500 Respiratory rate 18 /min Jana Monson Other [facility] Other 09-27-2022 16:00-0500 SaO2% (BldA) [Mass fraction] 98 % Jana Monson Other [facility] Other 09-27-2022 16:00-0500 Systolic blood pressure 159 mm[Hg] Jana Monson Other [facility] Other 08-22-2022 12:00-0500 Body height 168.91 cm Ron Doreen Other [facility] Other 08-22-2022 12:00-0500 Body mass index (BMI) [Ratio] 30.65 kg/m2 Ron Doreen Other [facility] Other 08-22-2022 12:00-0500 Body temperature 96.9 [degF] Ron Doreen Other [facility] Other 08-22-2022 12:00-0500 Body weight 87.45 kg Ron Doreen Other [facility] Other 08-22-2022 12:00-0500 Diastolic blood pressure 75 mm[Hg] Ron Doreen Other [facility] Other 08-22-2022 12:00-0500 Respiratory rate 18 /min Ron Doreen Other [facility] Other 08-22-2022 12:00-0500 SaO2% (BldA) [Mass fraction] 96 % Ron Doreen Other [facility] Other 08-22-2022 12:00-0500 Systolic blood pressure 121 mm[Hg] Ron Doreen Other [facility] Other 05-08-2022 10:20-0400 Body height 168.91 cm Ron Doreen Other [facility] Other 05-08-2022 10:20-0400 Body mass index (BMI) [Ratio] 31.54 kg/m2 Ron Doreen Other [facility] Other 05-08-2022 10:20-0400 Body temperature 97.6 [degF] Ron Doreen Other [facility] Other 05-08-2022 10:20-0400 Body weight 89.99 kg Ron Doreen Other [facility] Other 05-08-2022 10:20-0400 Diastolic blood pressure 68 mm[Hg] Ron Doreen Other [facility] Other 05-08-2022 10:20-0400 Respiratory rate 18 /min Ron Doreen Other [facility] Other 05-08-2022 10:20-0400 SaO2% (BldA) [Mass fraction] 98 % Ron Doreen Other [facility] Other 05-08-2022 10:20-0400 Systolic blood pressure 131 mm[Hg] Ron Doreen Other [facility] Other 01-18-2022 10:20-0400 Body height 168.91 cm Ron Doreen Other [facility] Other 01-18-2022 10:20-0400 Body mass index (BMI) [Ratio] 31 kg/m2 Ron Doreen Other [facility] Other 01-18-2022 10:20-0400 Body temperature 96.4 [degF] Ron Doreen Other [facility] Other 01-18-2022 10:20-0400 Body weight 88.45 kg Ron Doreen Other [facility] Other 01-18-2022 10:20-0400 Diastolic blood pressure 74 mm[Hg] Ron Doreen Other [facility] Other 04-14-2022 10:20-0400 Respiratory rate 18 /min Ron Doreen Other [facility] Other 01-18-2022 10:20-0400 SaO2% (BldA) [Mass fraction] 97 % Ron Doreen Other [facility] Other 01-18-2022 10:20-0400 Systolic blood pressure 170 mm[Hg] Ron Doreen Other [facility] Other Encounters Encounter Date Encounter Type Care Provider Facility Start: 09-09-2023 End: 09-09-2023 ambulatory Ron Doreen Other [facility] Other Start: 09-09-2023 Telephone encounter Ron Doreen [facility] Start: 08-27-2023 (INJECTION) INJECTION Aziz Bakhous [facility] Start: 08-27-2023 End: 08-27-2023 ambulatory Aziz Bakhous Other [facility] Other Start: 08-15-2023 (INJECTION) INJECTION Ron Doreen [facility] Start: 08-15-2023 End: 08-15-2023 ambulatory Ron Doreen Other [facility] Start: 08-13-2023 (INJECTION) INJECTION Ron Doreen [facility] Start: 08-13-2023 End: 08-13-2023 ambulatory Ron Doreen Other [facility] Other Start: 08-01-2023 End: 08-01-2023 ambulatory Ron Doreen Other [facility] Other Start: 08-01-2023 Office outpatient visit 15 minutes Ron Doreen [facility] Start: 06-24-2023 End: 06-24-2023 ambulatory Ron Doreen Other [facility] Other Start: 06-24-2023 Office outpatient visit 10 minutes Ron Doreen [facility] Start: 06-06-2023 End: 06-06-2023 ambulatory Ron Doreen Other [facility] Other Start: 06-06-2023 Office outpatient visit 15 minutes Ron Doreen [facility] Start: 04-30-2023 End: 04-30-2023 ambulatory Ron Doreen Other [facility] Other Start: 04-30-2023 Office outpatient visit 15 minutes Ron Doreen [facility] Start: 04-06-2023 (INJECTION) INJECTION [facility] Start: 04-06-2023 End: 04-06-2023 ambulatory Ron Doreen Other [facility] Other Start: 04-06-2023 Telephone encounter Ron Doreen [facility] Start: 04-02-2023 End: 04-02-2023 ambulatory Ron Doreen Other [facility] Other Start: 04-02-2023 Office outpatient visit 15 minutes Ron Doreen [facility] Start: 04-02-2023 Telephone encounter Ron Doreen [facility] Start: 03-07-2023 End: 03-07-2023 ambulatory Ron Doreen Other [facility] Other Start: 03-07-2023 Office outpatient visit 15 minutes Ron Doreen [facility] Start: 01-22-2023 End: 01-23-2023 ambulatory RON DOREEN Facility: Start: 12-20-2022 End: 12-20-2022 ambulatory Ron Doreen Other [facility] Other Start: 12-20-2022 Office outpatient visit 15 minutes Ron Doreen [facility] Start: 12-17-2022 End: 12-18-[address] DHRUV GUTIERRES . Facility:[facility] Start: 12-10-2022 End: 12-11-2022 ambulatory RON DOREEN Facility:[facility] Start: 11-20-2022 End: 11-21-[address] BENI APARICIO Facility:[facility] Start: 11-05-2022 End: 11-05-2022 ambulatory Ron Doreen Other [facility] Other Start: 11-05-2022 Office outpatient visit 15 minutes Ron Doreen [facility] Start: 10-29-2022 End: 10-30-[address] JANA MONSON Facility:[facility] Start: 10-24-2022 End: 10-24-[address] LILLIAN ACOSTA . Facility:[facility] Start: 10-24-2022 End: 10-25-[address] DHRUV GUTIERRES . Facility:[facility] Start: 09-27-2022 End: 09-27-2022 ambulatory Jana Monson Other [facility] Other Start: 09-27-2022 Office outpatient visit 15 minutes Jana Monson [facility] Start: 09-18-2022 End: 09-19-2022 ambulatory RON DOREEN Facility:[facility] Start: 09-11-2022 End: 09-11-[address] DHRUV GUTIERRES . Facility:[facility] Start: 08-22-2022 End: 08-22-2022 ambulatory Ron Doreen Other [facility] Other Start: 08-22-2022 Office outpatient visit 15 minutes Ron Doreen [facility] Start: 08-13-2022 End: 08-14-2022 ambulatory RON DOREEN Facility:[facility] Start: 06-25-2022 End: 06-26-[address] DHRUV GUTIERRES . Facility:[facility] Start: 06-18-2022 End: 06-18-[address] DHRUV GUTIERRES . Facility:[facility] Start: 06-01-2022 End: 06-02-[address] YANET HUERTA Facility:[facility] Start: 05-28-2022 End: 05-28-2022 ambulatory Ron Doreen Other [facility] Other Start: 05-28-2022 Telephone encounter Ron Doreen [facility] Start: 05-21-2022 End: 05-22-[address] DHRUV GUTIERRES . Facility:[facility] Start: 05-16-2022 End: 05-16-2022 ambulatory Ron Doreen Other [facility] Other Start: 05-16-2022 Telephone encounter Ron Doreen [facility] Start: 05-10-2022 End: 05-10-2022 ambulatory Ron Doreen Other [facility] Other Start: 05-10-2022 Telephone encounter Ron Doreen [facility] Start: 05-08-2022 End: 05-08-2022 ambulatory Ron Doreen Other [facility] Other Start: 05-08-2022 Office outpatient visit 25 minutes Ron Doreen [facility] Start: 05-02-2022 End: 05-03-2022 ambulatory RON DOREEN Facility:[facility] Start: 04-24-2022 End: 04-24-2022 ambulatory Aziz Bakhous Other [facility] Other Start: 04-24-2022 Telephone encounter Aziz Bakhous [facility] Start: 01-18-2022 End: 01-18-2022 ambulatory Ron Doreen Other [facility] Other Start: 01-18-2022 Office outpatient visit 25 minutes Ron Doreen [facility] [place] Start: 05-21-2017 End: 05-22-2017 Ambulatory DEFAULT PHYSICIAN Facility:[facility] Payers Date Payer Category Payer Medicare [id number]. [id number] 1945 Unknown [id number] 2.16.84 [id number] 1945 Unknown [id number] 2.16.84 [id number] 1944 Unknown [id number] 2.16.84 [id number] 1944 Unknown [id number] 2.16.84 [id number] 1944 Unknown [id number] 2.16.84 [id number] 1944 Unknown [id number] 2.16.84 0.1.176862.3.579.2.593 1944 Unknown [id number] 2.16.84 0.1.592911.3.579.2.593 1944 Unknown [id number] 2.16.84 0.1.790252.3.579.2.593 1944 Unknown [id number] 2.16.84 0.1.383956.3.579.2.593 1944 Unknown [id number] 2.16.84 0.1.209494.3.579.2.593 1944 Unknown [id number] 2.16.84 0.1.857082.3.579.2.593 1944 Unknown [id number] 2.16.84 0.1.060275.3.579.2.593 1944 Unknown [id number] 2.16.84 0.1.849097.3.579.2.593 1944 Unknown [id number] 2.16.84 0.1.914298.3.579.2.593 1944 Unknown [id number] 2.16.84 [id number] 1944 Unknown [id number] 2.16.84 [id number] Unknown Social History Date Type Detail Facility Unknown if ever smoked [facility] Other Sex Assigned At Sex Assigned At Bir th [facility] Other Clinical Notes 01-18-2022 to 09-09-2023 Note Date & Type Note Facility 09-09-2023 Evaluation note Encounter Date Diagnosis Assessment Notes Sep, Anemia of renal disease (ICD-10 - D63.1) Sep, Hypertensive chronic kidney disease with stage 1 through stage 4 chronic kidney disease, or unspecified chronic kidney disease (ICD-10 - I12.9) Sep, Type 2 diabetes mellitus with diabetic chronic kidney disease (ICD-10 - E11.22) Sep, CKD (chronic kidney disease) stage 4, GFR 15-29 ml/min (ICD-10 - N18.4) [facility] Other 11-21-2023 Evaluation note* Encounter Date Diagnosis Assessment Notes Treatment Notes Treatment Clinical Notes Aug, Anemia of renal disease (ICD-10 - D63.1) Aug, CKD (chronic kidney disease) stage 4, GFR 15-29 ml/min (ICD-10 - N18.4) [facility] Other 11-09-2023 Evaluation note* Encounter Date Diagnosis Assessment Notes Treatment Notes Treatment Clinical Notes Aug, Anemia of renal disease (ICD-10 - D63.1) Hb is below the target goal and has adequate Iron stores. Continue oral Iron. Continue Retacrit every 2 weeks. Aug, CKD (chronic kidney disease) stage 4, GFR 15-29 ml/min (ICD-10 - N18.4) She has CKD IV due to longstanding HTN with DM. Her serum Creatinine is 1.7-2 mg d/l. She has normal potassium. I discussed with her the importance of good DM and HTN control to slow down the progression of CKD. She had renal ultrasound in 2017 which showed a small right renal cyst no evidence of kidney mass hydronephrosis or kidney stones. [facility] Other 10-26-2023 Evaluation note* Encounter Date Diagnosis Assessment Notes Treatment Notes Treatment Clinical Notes Jul, Anemia of renal dise ase (ICD-10 - D63.1) Hb is below the target goal and has adequate Iron stores. Continue oral Iron. Continue Retacrit every 2 weeks. Jul, Hypertensive chronic kidney disease with stage 1 through stage 4 chronic kidney disease, or unspecified chronic kidney disease (ICD-10 - I12.9) Her Bp is controlled at home but sometimes runs high in the office. She appears to be euvolemic. Continue current dose of carvedilol, Lasix and Lisinopril. She was advised to check home blood pressure and keep records. We will add low-dose of amlodipine in future if blood pressure continues to run high in the office. Jul, CKD (chronic kidney disease) stage 4, GFR 15-29 ml/min (ICD-10 - N18.4) She has CKD IV due to longstanding HTN with DM. Her serum Creatinine is 1.7-2 mg d/l. She has normal potassium. I discussed with her the importance of good DM and HTN control to slow down the progression of CKD. She had renal ultrasound in 2017 which showed a small right renal cyst no evidence of kidney mass hydronephrosis or kidney stones. 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 Monitor uric acid every 4 to 6 months. Jul, Type 2 diabetes mellitus with diabetic chronic kidney disease (ICD-10 - E11.22) Her Blood sugars are within the acceptable range. I have advised her to continue to work with Dr. Pope for DM management. She he has a subnephrotic range proteinuria. Continue lisinopril 10 mg daily. Due to her advanced CKD she is not a suitable candidate for Farxiga, Jardiance or finerenone. Jul, Secondary hyperparathyroidism (ICD-10 - N25.81) MBD parameters including PTH, calcium, Vit D and phosphorus are within the goal. Continue Vit D 5000 units daily Jul, Hyperkalemia (ICD-10 - E87.5) She had hyperkalemia likely due to the CKD and lisinopril. Her potassium improved with dietary restriction and Lasix. [facility] Other 09-18-2023 Evaluation note* Encounter Date Diagnosis Assessment Notes Treatment Notes Treatment Clinical Notes Jun, Anemia of renal dise ase (ICD-10 - D63.1) Hb is below the target goal and has adequate Iron stores. Continue oral Iron. Continue Retacrit every 2 weeks. Jun, Hypertensive chronic kidney disease with stage 1 through stage 4 chronic kidney disease, or unspecified chronic kidney disease (ICD-10 - I12.9) Her Bp is controlled at home but sometimes runs high in the office. She appears to be euvolemic. Continue current dose of carvedilol, Lasix and Lisinopril. She was advised to check home blood pressure and keep records. We will add low-dose of amlodipine in future if blood pressure continues to run high in the office. Jun, CKD (chronic kidney disease) stage 4, GFR 15-29 ml/min (ICD-10 - N18.4) She has CKD IV due to longstanding HTN with DM. Her serum Creatinine is 1.7-2 mg d/l. She has normal potassium. I discussed with her the importance of good DM and HTN control to slow down the progression of CKD. She had renal ultrasound in 2017 which showed a small right renal cyst no evidence of kidney mass hydronephrosis or kidney stones. 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 Monitor uric acid every 4 to 6 months. Jun, Type 2 diabetes mellitus with diabetic chronic kidney disease (ICD-10 - E11.22) Her Blood sugars are within the acceptable range. I have advised her to continue to work with Dr. Pope for DM management. She he has a subnephrotic range proteinuria. Continue lisinopril 10 mg daily. Due to her advanced CKD she is not a suitable candidate for Emma Phelps or finerenone. Jun, Secondary hyperparathyroidism (ICD-10 - N25.81) MBD parameters including PTH, calcium, Vit D and phosphorus are within the goal. Continue Vit D 5000 units daily Jun, Hyperkalemia (ICD-10 - E87.5) She had hyperkalemia likely due to the CKD and lisinopril. Her potassium improved with dietary restriction and Lasix. [facility] Other 08-31-2023 Evaluation note* Encounter Date Diagnosis Assessment Notes Treatment Notes Treatment Clinical Notes May, Anemia of renal dise ase (ICD-10 - D63.1) Hb is below the target goal and has adequate Iron stores. Continue oral Iron. Change Retacrit every 2 weeks. May, Hypertensive chronic kidney disease with stage 1 through stage 4 chronic kidney disease, or unspecified chronic kidney disease (ICD-10 - I12.9) Her Bp is controlled at home but sometimes runs high in the office. She appears to be euvolemic. Continue current dose of carvedilol, Lasix and Lisinopril. She was advised to check home blood pressure and keep records. We will add low-dose of amlodipine in future if blood pressure continues to run high in the office. May, CKD (chronic kidney disease) stage 4, GFR 15-29 ml/min (ICD-10 - N18.4) She has CKD IV due to longstanding HTN with DM. Her serum Creatinine is 1.7-2 mg d/l. She has normal potassium. I discussed with her the importance of good DM and HTN control to slow down the progression of CKD. She had renal ultrasound in 2017 which showed a small right renal cyst no evidence of kidney mass hydronephrosis or kidney stones. 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 Monitor uric acid every 4 to 6 months. May, Type 2 diabetes mellitus with diabetic chronic kidney disease (ICD-10 - E11.22) Her Blood sugars are within the acceptable range. I have advised her to continue to work with Dr. Pope for DM management. She he has a subnephrotic range proteinuria. Continue lisinopril 10 mg daily. Due to her advanced CKD she is not a suitable candidate for Farxiga, Jardiance or finerenone. May, Secondary hyperparathyroidism (ICD-10 - N25.81) MBD parameters including PTH, calcium are phosphorus are within the goal but Vit D is low. I have advised her to Continue Vit D 5000 units daily May, Hyperkalemia (ICD-10 - E87.5) She had hyperkalemia likely due to the CKD and lisinopril. Her potassium improved with dietary restriction and Lasix. [facility] Other 07-25-2023 Evaluation note* Encounter Date Diagnosis Assessment Notes Treatment Notes Treatment Clinical Notes Apr, CKD (chronic kidney disease) stage 4, GFR 15-29 ml/min (ICD-10 - N18.4) She has CKD IV due to longstanding HTN with DM. Her serum Creatinine is 1.7-2 mg d/l. She has normal potassium. I discussed with her the importance of good DM and HTN control to slow down the progression of CKD. She had renal ultrasound in 2016 which showed a small right renal cyst no evidence of kidney mass hydronephrosis or kidney stones. Apr, Anemia of renal dise ase (ICD-10 - D63.1) Hb is below the target goal and has adequate Iron stores. Continue oral Iron. Continue Retacrit every 6 weeks. Apr, Hypertensive chronic kidney disease with stage 1 through stage 4 chronic kidney disease, or unspecified chronic kidney disease (ICD-10 - I12.9) Her Bp is controlled at home but sometimes runs high in the office. She appears to be euvolemic. Continue current dose of carvedilol, Lasix and Lisinopril. She was advised to check home blood pressure and keep records. 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 Monitor uric acid every 4 to 6 months. Apr, Type 2 diabetes mellitus with diabetic chronic kidney disease (ICD-10 - E11.22) Her Blood sugars are within the acceptable range. I have advised her to continue to work with Dr. Pope for DM management. She he has a subnephrotic range proteinuria. Continue lisinopril 10 mg daily. Due to her advanced CKD she is not a suitable candidate for Farxiga, Jardiance or finerenone. Apr, Secondary hyperparathyroidism (ICD-10 - N25.81) MBD parameters including PTH, calcium are phosphorus are within the goal but Vit D is low. I have advised her to Continue Vit D 5000 units daily Apr, Hyperkalemia (ICD-10 - E87.5) She had hyperkalemia likely due to the CKD and lisinopril. Her potassium is back to normal with dietary restriction and Lasix. [facility] Other 07-01-2023 Evaluation note* Encounter Date Diagnosis Assessment Notes Treatment Notes Treatment Clinical Notes Apr, CKD (chronic kidney disease) stage 4, GFR 15-29 ml/min (ICD-10 - N18.4) Apr, Anemia of renal disease (ICD-10 - D63.1) [facility] Other 06-27-2023 Evaluation note* Encounter Date Diagnosis Assessment Notes Treatment Notes Treatment Clinical Notes Mar, CKD (chronic kidney disease) stage 4, GFR 15-29 ml/min (ICD-10 - N18.4) She has CKD IV due to longstanding HTN with DM. Her serum Creatinine is 1.7-2 mg d/l. She has normal potassium. I discussed with her the importance of good DM and HTN control to slow down the progression of CKD. I have advised her to stop the antibiotics as she had already taken for 9 days. She had renal ultrasound in 2016 which showed a small right renal cyst no evidence of kidney mass hydronephrosis or kidney stones. Mar, Anemia of renal dise ase (ICD-10 - D63.1) Hb is below the target goal and has adequate Iron stores. Continue oral Iron. Continue Retacrit every 6 weeks. She was not given Retacrit injection today due to the high blood pressure. She was advised to have a follow-up in 3 days for nurse visit to have a Retacrit injection. Mar, Hypertensive chronic kidney disease with stage 1 through stage 4 chronic kidney disease, or unspecified chronic kidney disease (ICD-10 - I12.9) Her Bp is controlled at home but sometimes runs high in the office. She appears to be euvolemic. Continue current dose of carvedilol, Lasix and Lisinopril. She was advised to check home blood pressure and keep records. 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 Monitor uric acid every 4 to 6 months. Mar, Type 2 diabetes mellitus with diabetic chronic kidney disease (ICD-10 - E11.22) Her Blood sugars are within the acceptable range. I have advised her to continue to work with Dr. Pope for DM management. She he has a subnephrotic range proteinuria UPCR 1.2 g/g creatinine. Continue lisinopril 10 mg daily. Due to her advanced CKD she is not a suitable candidate for Farxiga, Jardiance or finerenone. Mar, Secondary hyperparathyroidism (ICD-10 - N25.81) MBD parameters including PTH, calcium are phosphorus are within the goal but Vit D is low. I have advised her to Continue Vit D 5000 units daily Mar, Hyperkalemia (ICD-10 - E87.5) She had hyperkalemia likely due to the CKD and lisinopril. Her potassium is back to normal with dietary restriction and Lasix. [facility] Other 06-01-2023 Evaluation note* Encounter Date Diagnosis Assessment Notes Treatment Notes Treatment Clinical Notes Mar, CKD (chronic kidney disease) stage 4, GFR 15-29 ml/min (ICD-10 - N18.4) She has CKD IV due to longstanding HTN with DM. Her serum Creatinine is 1.7-2 mg d/l. She has normal potassium. I discussed with her the importance of good DM and HTN control to slow down the progression of CKD. I have advised her to stop the antibiotics as she had already taken for 9 days. She had renal ultrasound in 2017 which showed a small right renal cyst no evidence of kidney mass hydronephrosis or kidney stones. Mar, Anemia of renal dise ase (ICD-10 - D63.1) Hb is below the target goal and has adequate Iron stores. Continue oral Iron. Continue Retacrit every 6 weeks Mar, Hypertensive chronic kidney disease with stage 1 through stage 4 chronic kidney disease, or unspecified chronic kidney disease (ICD-10 - I12.9) Her Bp is controlled at home but sometimes runs high in the office. She appears to be euvolemic. Continue current dose of carvedilol and Lisinopril. She was advised to check home blood pressure and keep records. She might need diuretics for better blood pressure control. 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 Monitor uric acid every 4 to 6 months. Mar, Type 2 diabetes mellitus with diabetic chronic kidney disease (ICD-10 - E11.22) Her Blood sugars are within the acceptable range. I have advised her to continue to work with Dr. Pope for DM management. She he has a subnephrotic range proteinuria UPCR 1.2 g/g creatinine. Continue lisinopril 10 mg daily. Due to her advanced CKD she is not a suitable candidate for Farxiga, Jardiance or finerenone. Mar, Secondary hyperparathyroidism (ICD-10 - N25.81) MBD parameters including PTH, calcium are phosphorus are within the goal but Vit D is low. I have advised her to Continue Vit D 5000 units daily Mar, Hyperkalemia (ICD-10 - E87.5) She has hyperkalemia likely due to the CKD and lisinopril. Advised low potassium diet and provide information about it. [facility] Other 03-16-2023 Evaluation note* Encounter Date Diagnosis Assessment Notes Treatment Notes Treatment Clinical Notes Dec, CKD (chronic kidney disease) stage 4, GFR 15-29 ml/min (ICD-10 - N18.4) She has CKD IV due to longstanding HTN with DM. Her serum Creatinine is 1.7-2 mg d/l. She has normal potassium. She is on Retacrit for anemia. No acidosis. Blood pressure is reasonably controlled. Monitor renal function every 2 to 3 months to adjust medication as indicated. Dec, Anemia of renal dise ase (ICD-10 - D63.1) Hb is improving with Retacrit and has adequate Iron stores. Continue oral Iron. Continue Retacrit every 6 weeks Dec, Hypertensive chronic kidney disease with stage 1 through stage 4 chronic kidney disease, or unspecified chronic kidney disease (ICD-10 - I12.9) Her Bp is controlled at home but sometimes runs high in the office. She appears to be euvolemic. Continue current dose of carvedilol. Continue Lisinopril. She was advised to check home blood pressure and keep records. She might need diuretics for better blood pressure control. 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 Monitor uric acid every 4 to 6 months. Dec, Type 2 diabetes diony itus with diabetic chronic kidney disease (ICD-10 - E11.22) Her Blood sugars are within the acceptable range. I have advised her to continue to work with Dr. Pope for DM management. She he has a subnephrotic range proteinuria UPCR 1.2 g/g creatinine. Continue lisinopril 10 mg daily. Due to her advanced CKD she is not a suitable candidate for Farxiga, Jardiance or finerenone. Dec, Secondary hyperparathyroidism (ICD-10 - N25.81) MBD parameters including PTH, calcium are phosphorus are within the goal but Vit D is low. I have advised her to Continue Vit D 5000 units daily [facility] Other 01-30-2023 Evaluation note* Encounter Date Diagnosis Assessment Notes Treatment Notes Treatment Clinical Notes Oct, CKD (chronic kidney disease) stage 4, GFR 15-29 ml/min (ICD-10 - N18.4) She has CKD IV due to longstanding HTN with DM. Her serum Creatinine is 1.7-2 mg d/l. She has normal potassium. She is on Retacrit for anemia. No acidosis. Blood pressure is reasonably controlled. Monitor renal function every 2 to 3 months to adjust medication as indicated. Oct, Anemia of renal dise ase (ICD-10 - D63.1) Hb is improving with Retacrit and has adequate Iron stores. Continue oral Iron. Continue Retacrit every 6 weeks Oct, Hypertensive chronic kidney disease with stage 1 through stage 4 chronic kidney disease, or unspecified chronic kidney disease (ICD-10 - I12.9) Her Bp is controlled at home but sometimes runs high in the office. She appears to be euvolemic. Continue current dose of carvedilol. Continue Lisinopril. She was advised to check home blood pressure and keep records. She might need diuretics for better blood pressure control. 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 Monitor uric acid every 4 to 6 months. Oct, Type 2 diabetes diony itus with diabetic chronic kidney disease (ICD-10 - E11.22) Her Blood sugars are within the acceptable range. I have advised her to continue to work with Dr. Pope for DM management. She he has a subnephrotic range proteinuria UPCR 1.2 g/g creatinine. Continue lisinopril 10 mg daily. Due to her advanced CKD she is not a suitable candidate for Farxiga, Jardiance or finerenone. Oct, Secondary hyperparathyroidism (ICD-10 - N25.81) MBD parameters including PTH, calcium are phosphorus are within the goal but Vit D is low. I have advised her to Continue Vit D 5000 units daily [facility] Other 12-22-2022 Evaluation note* Encounter Date Diagnosis Assessment Notes Treatment Notes Treatment Clinical Notes Sep, CKD (chronic kidney disease) stage 4, GFR 15-29 ml/min (ICD-10 - N18.4) She has CKD IV due to longstanding HTN with DM. Her serum Creatinine is 1.6-1.9 mg d/l. She has normal potassium. She is on Retacrit for anemia. No acidosis. Blood pressure is reasonably controlled. Monitor renal function every 2 to 3 months to adjust medication as indicated. Sep, Anemia of renal dise ase (ICD-10 - D63.1) Hb is below the goal and has adequate Iron stores. Continue oral Iron. Continue Retacrit every 6 weeks Sep, Hypertensive chronic kidney disease with stage 1 through stage 4 chronic kidney disease, or unspecified chronic kidney disease (ICD-10 - I12.9) Her Bp is controlled at home but sometimes runs high in the office. She appears to be euvolemic. Continue current dose of carvedilol. Continue Lisinopril. She was advised to check home blood pressure and keep records. She might need diuretics for better blood pressure control. 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 Monitor uric acid every 4 to 6 months. Sep, Type 2 diabetes diony itus with diabetic chronic kidney disease (ICD-10 - E11.22) Her Blood sugars are within the acceptable range. I have advised her to continue to work with Dr. Pope for DM management. She he has a subnephrotic range proteinuria UPCR 1.2 g/g creatinine. Continue lisinopril 10 mg daily. Due to her advanced CKD she is not a suitable candidate for Farxiga, Jardiance or finerenone. Sep, Secondary hyperparathyroidism (ICD-10 - N25.81) MBD parameters including PTH, calcium are phosphorus are within the goal but Vit D is low. I have advised her to Continue Vit D 5000 units daily [facility] Other 11-16-2022 Evaluation note* Encounter Date Diagnosis Assessment Notes Treatment Notes Treatment Clinical Notes Aug, CKD (chronic kidney disease) stage 4, GFR 15-29 ml/min (ICD-10 - N18.4) She may haveShe has CKD due to longstanding HTN with DM. Her serum Creatinine is 1.6-1.9 mg d/l. I have discussed with her the importance of good DM and HTN control to slow down the progression of disease. Aug, Anemia of renal dise ase (ICD-10 - D63.1) Hb is below the goal and has adequate Iron stores. Continue oral Iron. Continue Retacrit every 6 weeks Aug, Hypertensive chronic kidney disease with stage 1 through stage 4 chronic kidney disease, or unspecified chronic kidney disease (ICD-10 - I12.9) Her Bp is controlled at home but sometimes runs high in the office. She appears to be euvolemic. Continue current dose of carvedilol. 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 Her Uric acid is within the goal. Continue Allopurinol 300 mg daily Aug, Type 2 diabetes diony itus with diabetic chronic kidney disease (ICD-10 - E11.22) Her Blood sugars are within the acceptable range. I have advised her to continue to work with Dr. Pope for DM management. She he has a subnephrotic range proteinuria UPCR 1.2 g/g creatinine. Continue lisinopril 10 mg daily. Due to her advanced CKD she is not a suitable candidate for Farxiga or Jardiance or finerenone. Aug, Secondary hyperparathyroidism (ICD-10 - N25.81) MBD parameters including PTH, calcium are phosphorus are within the goal but Vit D is low. I have advised her to Continue Vit D 5000 units daily [facility] Other 08-04-2022 Evaluation note* Encounter Date Diagnosis Assessment Notes Treatment Notes Treatment Clinical Notes May, Hypertensive chronic kidney disease with stage 1 through stage 4 chronic kidney disease, or unspecified chronic kidney disease (ICD-10 - I12.9) [facility] Other 08-02-2022 Evaluation note* Encounter Date Diagnosis Assessment Notes Treatment Notes Treatment Clinical Notes May, CKD (chronic kidney disease) stage 4, GFR 15-29 ml/min (ICD-10 - N18.4) She may haveShe has CKD due to longstanding HTN with DM. Her serum Creatinine is 1.6-1.9 mg d/l. I have discussed with her the importance of good DM and HTN control to slow down the progression of disease. May, Anemia of renal dise ase (ICD-10 - D63.1) Hb is below the goal and has adequate Iron stores. Continue oral Iron. Will start Retacrit after insurance approval May, Hypertensive chronic kidney disease with stage 1 through stage 4 chronic kidney disease, or unspecified chronic kidney disease (ICD-10 - I12.9) Her Bp is controlled and he appears to be euvolemic. Continue current dose of carvedilol. 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 Her Uric acid is within the goal. Continue Allopurinol 300 mg daily May, Type 2 diabetes diony itus with diabetic chronic kidney disease (ICD-10 - E11.22) Her Blood sugars are within the acceptable range. I have advised her to continue to work with Dr. Pope for DM management. She he has a subnephrotic range proteinuria UPCR 1.2 g/g creatinine. I have prescribed low-dose of lisinopril 10 mg daily. May, Secondary hyperparathyroidism (ICD-10 - N25.81) MBD parameters including PTH, calcium are phosphorus are within the goal but Vit D is low. I have advised her to Continue Vit D 5000 units daily [facility] Other 07-19-2022 Evaluation note* Encounter Date Diagnosis Assessment Notes Treatment Notes Treatment Clinical Notes Apr, Hypertensive chronic kidney disease with stage 1 through stage 4 chronic kidney disease, or unspecified chronic kidney disease (ICD-10 - I12.9) [facility] Other 04-14-2022 Evaluation note* Encounter Date Diagnosis Assessment Notes Treatment Notes Treatment Clinical Notes Jan, CKD (chronic kidney disease) stage 4, GFR 15-29 ml/min (ICD-10 - N18.4) She may haveShe has CKD due to longstanding HTN with DM. Her serum Creatinine is 1.6-1.9 mg d/l. I have discussed with her the importance of good DM and HTN control to slow down the progression of disease. Jan, Hypertensive chronic kidney disease with stage 1 through stage 4 chronic kidney disease, or unspecified chronic kidney disease (ICD-10 - I12.9) Her Bp is high and he appears to be euvolemic. Continue current dose of carvedilol. 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 Her Uric acid is within the goal. Continue Allopurinol 300 mg daily Jan, Anemia of renal dise ase (ICD-10 - D63.1) Hb is within the goal and has adequate Iron stores. Continue oral Iron. Jan, Type 2 diabetes diony itus with diabetic chronic kidney disease (ICD-10 - E11.22) Her Blood sugars are within the acceptable range. I have advised her to continue to work with Dr. Pope for DM management. She he has a subnephrotic range proteinuria UPCR 1.2 g/g creatinine. I have prescribed low-dose of lisinopril 10 mg daily. 14 Jan, 2022 Secondary hyperparathyroidism (ICD-10 - N25.81) MBD parameters including PTH, calcium are phosphorus are within the goal but Vit D is low. I have advised her to stop Calcium and advised her to take Vit D 1000 units daily [facility] Other Evaluation noteNo InformationNort Sennari Other History general Narrative - Reported* Type Description Date Medical History HYPERTESIVE URGENCY Medical History DYSPNEA Medical History LOW BACK PAIN Medical History OSTEOPENIA Medical History CAROTID ARTERY DISEASE Medical History EDEMA Medical History ALLERGIC RHINITIS Medical History VENTRICULAR HYPERTROPHY Medical History HYPERLIPIDEMIA Medical History HYPERTENSION Medical History MITRAL INSUFFICIENCY Medical History DIABETIC RETINOPATHY Medical History ANEMIA IRON DEFICIENCY Medical History GERD Medical History CATARACT Medical History CHEST PAIN Medical History ARTHRITIS Medical History 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 Medical History COVID 2019 Surgical History SINUS SURGERY Surgical History HYSTERECTOMY Surgical History GALLBLADDER Surgical History BILATERAL ROTATER CUFF REPAIR Surgical History CATARACTS Surgical History SKIN CANCER REMOVED WITH RECONS TRUCTION ON NOSE 10/2019 Surgical History QUAD BYPASS AT [facility] 01/01/2021 Hospitalization History ELEVATED BLOOD PRESSURE Hospitalization History SEE ABOVE Hospitalization History COVID 09/2020 [facility] Other [facility] general Narrative - Reported* Type Description Date Medical History HYPERTESIVE URGENCY Medical History DYSPNEA Medical History LOW BACK PAIN Medical History OSTEOPENIA Medical History CAROTID ARTERY DISEASE Medical History EDEMA Medical History ALLERGIC RHINITIS Medical History VENTRICULAR HYPERTROPHY Medical History HYPERLIPIDEMIA Medical History HYPERTENSION Medical History MITRAL INSUFFICIENCY Medical History DIABETIC RETINOPATHY Medical History ANEMIA IRON DEFICIENCY Medical History GERD Medical History CATARACT Medical History CHEST PAIN Medical History ARTHRITIS Medical History 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 Medical History COVID 2019 Medical History BLOOD CLOT AFTER A R OOT CANAL, PER PATIENT SHE DID LOSE A LOT OF BLOOD Surgical History SINUS SURGERY Surgical History HYSTERECTOMY Surgical History GALLBLADDER Surgical History BILATERAL ROTATER CUFF REPAIR Surgical History CATARACTS Surgical History SKIN CANCER REMOVED WITH RECONS TRUCTION ON NOSE 10/2019 Surgical History QUAD BYPASS AT [facility] 01/01/2021 Hospitalization History ELEVATED BLOOD PRESSURE Hospitalization History SEE ABOVE Hospitalization History COVID 09/2020 [facility] Other History general Narrative - Reported* Type Description Date Medical History HYPERTESIVE URGENCY Medical History DYSPNEA Medical History LOW BACK PAIN Medical History OSTEOPENIA Medical History CAROTID ARTERY DISEASE Medical History EDEMA Medical History ALLERGIC RHINITIS Medical History VENTRICULAR HYPERTROPHY Medical History HYPERLIPIDEMIA Medical History HYPERTENSION Medical History MITRAL INSUFFICIENCY Medical History DIABETIC RETINOPATHY Medical History ANEMIA IRON DEFICIENCY Medical History GERD Medical History CATARACT Medical History CHEST PAIN Medical History ARTHRITIS Medical History 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 Medical History COVID 2019 Medical History BLOOD CLOT AFTER A R OOT CANAL, PER PATIENT SHE DID LOSE A LOT OF BLOOD Medical History UTI Surgical History SINUS SURGERY Surgical History HYSTERECTOMY Surgical History GALLBLADDER Surgical History BILATERAL ROTATER CUFF REPAIR Surgical History CATARACTS Surgical History SKIN CANCER REMOVED WITH RECONS TRUCTION ON NOSE 10/2019 [facility] Hospitalization History ELEVATED BLOOD PRESSURE Hospitalization History SEE ABOVE Hospitalization History COVID 09/2020 [facility] Other History general N[facility]ative - [facility] Other Summary Purpose Family History No Family History Records FoundNo Family History Records Found Advance Directives No Advanced Directives Records FoundNo Advanced Directives Records Found Additional Source Comments INFORMATION SOURCE (unrecogn ized section and content) DATE CREATED AUTHOR 04/02/2018 [facility] DATE CREATED AUTHOR AUTHOR'S ORGANIZ ATION 01/27/2023 [facility] REASON FOR VISIT (unrecogniz ed section and content) CKD and AnemiaREFILLCKD and AnemiaREFILL FOR 100 DAY RXNo InformationClinicalCKD and AnemiaRENAL 6 WK RETACRITCKD and AnemiaCKD and AnemiaCKD and AnemiaCKD and AnemiaNo InformationNo InformationRETACRIT INJECTIONCKD and AnemiaCKD and HTNAnemia and CKDAnemia and CKDRENAL 2 WK INJ / RETACRIT - NURSERENAL RETACRIT INJECTIONRENAL 2 WK INJ RETACRITLAB ORDERS FOR RECORDS PERTAINING TO PATIENTS WHO ARE OR HAVE BEEN ENROLLED IN A CHEMICAL DEPENDENCY/SUBSTANCEABUSE PROGRAM, SOME INFORMATION MAY BE OMITTED. This clinical summary was aggregated from multiple sources. Caution should be exercised in using it in the provision of clinical care. This summary normalizes information from multiple sources, and as a consequence, information in this document may materially change the coding, format and clinical context of patient data. In addition, data may be omitted in some cases. CLINICAL DECISIONS SHOULD BE BASED ON THE PRIMARY CLINICAL RECORDS. [facility]. provides no warranty or guarantee of the accuracy or completeness of information in this document.
== END 2023-08-19 06:42 | disposition home or self-care (01) ==
LOC: LAB 06:43
PROVIDERS: PCP Family Medicine; Visit Provider Internal Medicine
DX: N18.4 Chronic kidney disease, stage 4 (severe) (principal); D63.1 Anemia in chronic kidney disease
CPT/HCPCS: 36415; 80069; 83735; 85027

== ENCOUNTER 2023-09-10 06:32 | Outpatient (OUT) | payer MEDICARE, SELFPAY ==
[2023-09-10 06:57] LABS: Hematocrit 34.2 % (36.0-48.0); Mean Corpuscular HGB Conc 32.2 g/dL (29.9-35.2); Mean Corpuscular Hemoglobin 30.2 pg (26.7-34.0); Mean Platelet Volume 9.8 fL (9.5-13.5); Platelet Count 174 10^3/uL (150-450); Red Blood Count 3.64 10^6/uL (4.20-5.40); Red Cell Distribution Width 15.9 % (11.0-15.0)
[2023-09-10 07:31] LABS: Albumin Level 3.5 g/dL (3.4-5.0); Anion Gap 15.6; BUN Creatinine Ratio 31.2; Carbon Dioxide 23.2 mmol/L (21.0-32.0); Chloride 104 mmol/L (98-107); Estimated GFR (African America 32 (>=60); Estimated GFR (Non-African Ame 26 (>=60); Glucose 117 mg/dL (74-106); Phosphorus 4.7 mg/dL (2.6-4.7); Potassium 4.8 mmol/L (3.5-5.1); Sodium 138 mmol/L (136-145)
== END 2023-09-10 06:33 | disposition home or self-care (01) ==
LOC: LAB 06:32
PROVIDERS: PCP Family Medicine; Visit Provider Internal Medicine
DX: D63.1 Anemia in chronic kidney disease (principal)
CPT/HCPCS: 36415; 80069; 85027

== ENCOUNTER 2023-10-01 09:46 | Outpatient (OUT) | payer MEDICARE, SELFPAY ==
[2023-10-01 10:28] LABS: Bilirubin Urine NEGATIVE (NEGATIVE); Blood Urine NEGATIVE (NEGATIVE); Clarity Urine CLEAR (CLEAR); Color Urine LT. YELLOW (YELLOW); Glucose Urine UA NEGATIVE (NEGATIVE); Ketones Urine NEGATIVE (NEGATIVE); Leukocyte Esterase Urine MODERATE (NEGATIVE); Nitrite Urine NEGATIVE (NEGATIVE); Protein Urine NEGATIVE (NEG/TRACE); Urobilinogen Urine 0.2 EU/dL (0.2-1.0); pH Urine 5.5 (5.0-9.0)
[2023-10-01 10:46] LABS: Bacteria Urine MODERATE #/HPF (NONE SEEN); Mucus Urine NONE SEEN (NONE SEEN); RBC Urine NONE SEEN #/HPF (0-2); Squamous Epithelial Cell Urine FEW #/LPF (NONE/RARE); WBC Urine 20-50 #/HPF (NONE SEEN)
[2023-10-01 10:47] LABS: Urine Culture Indicated ALREADY ORDERED
== END 2023-10-01 09:47 | disposition home or self-care (01) ==
LOC: LAB 09:48
PROVIDERS: PCP Family Medicine; Visit Provider Family Medicine
DX: N39.0 Urinary tract infection, site not specified (principal)
CPT/HCPCS: 81001; 87086; 87150; 87186

== ENCOUNTER 2023-10-08 06:30 | Outpatient (OUT) | payer MEDICARE, SELFPAY ==
--- OUTSIDE RECORDS SUMMARY | 2023-10-08 06:32 | XMS_ITS | CCD ---
Author Name Unknown Address [address] [place] [address] Organization [facility] Care Team Providers Care Manager Pest Name Role Phone PHYSICIAN, DEFAULT Unavailable Unavailable [...] Facility (20 sources) amLODIPine Drug Allergy Unknown [facility] Other (15 sources) Amoxicillin / Clavulanate Drug Allergy Unknown [facility] Other (20 sources) Contrast media Propensity to adverse reactions Unknown [facility] Other (2 sources) Doxazosin; Translations: [doxazosin] Drug Allergy Unknown [facility] Other (20 sources) Sulfamethoxazole / Trimethoprim Drug Allergy Unknown [facility] Other (20 sources) Doxazosin Drug Allergy Unknown [facility] Other (9 sources) Amoxicillin / Clavulanate; Translations: [Augmentin] Drug Allergy 11-16-19 16 Unknown [facility] (1 source) amLODIPine Drug Allergy 04-25-20 14 [facility] (1 source) Sulfamethoxazole / Trimethoprim Drug Allergy 03-09-20 13 [facility] Medications Current Medications Medication Drug Class(es) [...] Orally every 12 hrs Active epoetin johnna-epbx 54540 UNT/ML Injectable Solution [Retacrit] (14 sources) Retacrit 76503 U NIT/ML as directed Injection Active ferrous [...] [Volume fraction] 28.8 % Critically low 36.0-48.0 [facility] Comment on above: Performed By: #### H H #### [facility] [address] [place] [address] Dr. Ember Teague Hemoglobin (Bld) [Mass/Vol] 9.6 g/dL Critically low 12.0-16.0 [facility] Comment on above: Performed By: #### H H #### [facility] [address] [place] [address] Dr. Ember Teague MCH (RBC) [Entitic mass] 30.7 pg Normal 26.7-34.0 [facility] Comment on above: Performed By: #### H H #### [facility] [address] [address] [address] Ember Teague MCHC (RBC) [Mass/Vol] 33.3 g/dL Normal 29.9-35.2 [facility] Comment on above: Performed By: #### H H #### [facility] [address] [place] [address] Dr. Ember Teague MCV (RBC) [Entitic vol] 92.0 fL Normal 81.0-99.0 [facility] Comment on above: Performed By: #### H H #### [facility] [address] [address] [address] Ember Teague PLT 214 103/ul Normal 150-450 [facility] Comment on above: Performed By: #### H H #### [facility] [address] [address] [address] Ember Teague RBC 3.13 106/ul Critically low 4.20-5.40 [facility] Comment on above: Performed By: #### H H #### [facility] [address] [address] [address] Ember Teague WBC 7.4 103/ul Normal 4.0-11.0 [facility] Comment on above: Performed By: #### H H #### [facility] [address] [place] [address] Dr. Ember Teague MAGNESIUMon 01-22-2023 Magnesium [Mass/Vol] 1.8 mg/dL Normal 1.8-2.4 [facility] Comment on above: Performed By: #### M G, RENAL #### [facility] [address] [place] [address] Dr. Ember Teague RENAL FUNCTION PANELon 01-22 Albumin [Mass/Vol] 3.6 g/dL Normal 3.4-5.0 [facility] Comment on above: Performed By: #### M G, RENAL #### [facility] [address] [place] [address] Dr. Ember Teague Calcium [Mass/Vol] 9.7 mg/dL Normal 8.5-10.1 [facility] Comment on above: Performed By: #### M G, RENAL #### [facility] [address] [place] [address] Dr. Ember Teague Chloride [Moles/Vol] 105 mmol/L Normal 98-107 [facility] Comment on above: Performed By: #### M G, RENAL #### [facility] [address] [place] [address] Dr. Ember Teague CO2 [Moles/Vol] 22.6 mmol/L Normal 21.0-32.0 [facility] Comment on above: Performed By: #### M G, RENAL #### [facility] [address] [address] [address] Ember Teague Creatinine [Mass/Vol] 2.18 mg/dL Critically high 0.55-1.02 [facility] Comment on above: Performed By: #### M G, RENAL #### [facility] [address] [address] [address] Ember Teague EGFR-AF CHADIAN 26 mL/min/1.73m2 Critically low >=60 [facility] Comment on above: Performed By: #### M G, RENAL #### [facility] [address] [address] [address] Ember Teague EGFR-NON AF CHADIAN 22 mL/min/1.73m2 Critically low >=60 [facility] Comment on above: Performed By: #### M G, RENAL #### [facility] [address] [address] [address] Ember Teague Glucose [Mass/Vol] 134 mg/dL Critically high 74-106 [facility] Comment on above: Performed By: #### M G, RENAL #### [facility] [address] [address] [address] Ember Teague Phosphate [Mass/Vol] 4.6 mg/dL Normal 2.6-4.7 [facility] Comment on above: Performed By: #### M G, RENAL #### [facility] [address] [address] [address] Ember Teague Potassium [Moles/Vol] 5.1 mmol/L Normal 3.5-5.1 [facility] Comment on above: Performed By: #### M G, RENAL #### [facility] [address] [address] [address] Ember Teague Sodium [Moles/Vol] 138 mmol/L Normal 136-145 [facility] Comment on above: Performed By: #### M G, RENAL #### [facility] [address] [address] [address] Ember Teague Urea nitrogen [Mass/Vol] 61.0 mg/dL Critically high 7.0-18.0 [facility] Comment on above: Performed By: #### M G, RENAL #### [facility] [address] [address] [address] Ember Teague MG MAMM SCREEN 3D MAY CADon 12-17-2022 MG MAMM SCREEN 3D MAY CAD Patient: KYLAH BERGER Exam Date: 12/17/2022 : 1945 Gender:F Ordering : DR DHRUV GUTIERRES . Admission #: [id number] Family : Order #: [id number] CLICK HERE TO VIEW EXAM RADIOLOGY REPORT [...] lung cancer at age 61. LOCATION: [facility] BREAST COMPOSITION: Scattered areas fibroglandular density. FINDINGS: [...] MD on 12/17/2022 at 11:59 Normal [facility] FERRITINon 12-10-2022 Ferritin [Mass/Vol] 681.0 ng/mL Critically high 8.0-252.0 [facility] Comment on above: Performed By: #### P THINT #### [facility] [address] [place], [place] [address] Dr. Ember Teague HEMOGRAM AND PLATELon 2022 Hematocrit (Bld) [Volume fraction] 27.1 % Critically low 36.0-48.0 [facility] Comment on above: Performed By: #### C VDTBH #### [facility] [address] [address] [address] Ember Teague Hemoglobin (Bld) [Mass/Vol] 9.7 g/dL Critically low 12.0-16.0 [facility] Comment on above: Performed By: #### C VDTBH #### [facility] [address] [place] [address] Dr. Ember Teague MCH (RBC) [Entitic mass] 31.4 pg Normal 26.7-34.0 [facility] Comment on above: Performed By: #### C VDTBH #### [facility] [address] [place] [address] Dr. Ember Teague MCHC (RBC) [Mass/Vol] 35.8 g/dL Critically high 29.9-35.2 [facility] Comment on above: Performed By: #### C VDTBH #### [facility] [address] [place] [address] Dr. Ember Teague MCV (RBC) [Entitic vol] 87.7 fL Normal 81.0-99.0 [facility] Comment on above: Performed By: #### C VDTBH #### [facility] [address] [place] [address] Dr. Ember Teague PLT 218 103/ul Normal 150-450 [facility] Comment on above: Performed By: #### C VDTBH #### [facility] [address] [place] [address] Dr. Ember Teague RBC 3.09 106/ul Critically low 4.20-5.40 [facility] Comment on above: Performed By: #### C VDTBH #### [facility] [address] [place] [address] Dr. Ember Teague WBC 6.6 103/ul Normal 4.0-11.0 [facility] Comment on above: Performed By: #### C VDTBH #### [facility] [address] [place] [address] Dr. Ember Teague IRON AND TIBCon 03-06-2023 % SATURATION 30.2 % Normal [facility] Comment on above: Performed By: #### P THINT #### [facility] [address] [address] [address] Ember Teague Iron [Mass/Vol] 84.0 ug/dL Normal 50.0-170.0 [facility] Comment on above: Performed By: #### P THINT #### [facility] [address] [address] [address] Ember Teague TIBC DIRECT 278.0 ug/dL Normal 250.0-450.0 [facility] Comment on above: Performed By: #### P THINT #### [facility] [address] [place] [address] Dr. Ember Teague XR FOOT MAY MIN [...] BENI APARICIO Date: 2022-11-20 14:03 Normal [facility] HEMOGRAM AND PLATELon 2022 Hematocrit (Bld) [Volume fraction] 27.7 % Critically low 36.0-48.0 [facility] Comment on above: Performed By: #### R ENAL #### [facility] [address] [place] [address] Dr. Ember Teague Hemoglobin (Bld) [Mass/Vol] 10.0 g/dL Critically low 12.0-16.0 [facility] Comment on above: Performed By: #### R ENAL #### [facility] [address] [address] [address] Ember Teague MCH (RBC) [Entitic mass] 31.6 pg Normal 26.7-34.0 [facility] Comment on above: Performed By: #### R ENAL #### [facility] [address] [place] [address] Dr. Ember Teague MCHC (RBC) [Mass/Vol] 36.1 g/dL Critically high 29.9-35.2 [facility] Comment on above: Performed By: #### R ENAL #### [facility] [address] [place] [address] Dr. Ember Teague MCV (RBC) [Entitic vol] 87.7 fL Normal 81.0-99.0 [facility] Comment on above: Performed By: #### R ENAL #### [facility] [address] [place] [address] Dr. Ember Teague PLT 182 103/ul Normal 150-450 [facility] Comment on above: Performed By: #### R ENAL #### [facility] [address] [place] [address] Dr. Ember Teague RBC 3.16 106/ul Critically low 4.20-5.40 [facility] Comment on above: Performed By: #### R ENAL #### [facility] [address] [place] [address] Dr. Ember Teague WBC 6.8 103/ul Normal 4.0-11.0 [facility] Comment on above: Performed By: #### R ENAL #### [facility] [address] [place] [address] Dr. Ember Teague PROF CHEM 8 (BAS METB)on Anion gap [Moles/Vol] 17.6 mmol/L Normal [facility] Comment on above: Performed By: #### C VDTBH #### [facility] [address] [place] [address] Dr. Ember Teague Calcium [Mass/Vol] 9.0 mg/dL Normal 8.5-10.1 [facility] Comment on above: Performed By: #### C VDTBH #### [facility] [address] [address] [address] Ember Teague Chloride [Moles/Vol] 104 mmol/L Normal 98-107 [facility] Comment on above: Performed By: #### C VDTBH #### [facility] [address] [address] [address] Ember Teague CO2 [Moles/Vol] 22.2 mmol/L Normal 21.0-32.0 [facility] Comment on above: Performed By: #### C VDTBH #### [facility] [address] [address] [address] Ember Teague Creatinine [Mass/Vol] 2.03 mg/dL Critically high 0.55-1.02 [facility] Comment on above: Performed By: #### C VDTBH #### [facility] [address] [place] [address] Dr. Ember Teague EGFR-AF CHADIAN 29 mL/min/1.73m2 Critically low >=60 [facility] Comment on above: Performed By: #### C VDTBH #### [facility] [address] [address] [address] Ember Teague EGFR-NON AF CHADIAN 24 mL/min/1.73m2 Critically low >=60 [facility] Comment on above: Performed By: #### C VDTBH #### [facility] [address] [place] [address] Dr. Ember Teague Glucose [Mass/Vol] 154 mg/dL Critically high 74-106 [facility] Comment on above: Performed By: #### C VDTBH #### [facility] [address] [address] [address] Ember Teague Potassium [Moles/Vol] 4.8 mmol/L Normal 3.5-5.1 [facility] Comment on above: Performed By: #### C VDTBH #### [facility] [address] [address] [address] Ember Teague Sodium [Moles/Vol] 139 mmol/L Normal 136-145 [facility] Comment on above: Performed By: #### C VDTBH #### [facility] [address] [address] [address] Ember Teague Urea nitrogen [Mass/Vol] 43.0 mg/dL Critically high 7.0-18.0 [facility] Comment on above: Performed By: #### C VDTBH #### [facility] [address] [address] [address] Ember Teague Urea nitrogen/Creatinine [Mass ratio] 21.2 mg/mg Normal [facility] Comment on above: Performed By: #### C VDTBH #### [facility] [address] [address] [address] Ember Teague CULTURE SPUTUMon 10-24-2022 CULTURE SPUTUM Culture Observations : Beta lactamase positive Isolate 1 Haemophilus influenzae Moderate growth of Normal [facility] Comment on above: Performed By: #### R ENAL #### [facility] [address] [place] [address] Dr. Ember Teague SPUTUM GRAM STAINon 10-24-19 COMMENTS Normal [facility] Comment on above: Performed By: #### R ENAL #### [facility] [address] [address] [address] Ember Teague DIPHTHEROIDS Normal [facility] Comment on above: Performed By: #### R ENAL #### [facility] [address] [address] [address] Ember Teague EPITHELIALS >25 Normal [facility] Comment on above: Performed By: #### R ENAL #### [facility] [address] [address] [address] Ember Teague FUNGAL ELEMENTS Normal [facility] Comment on above: Performed By: #### R ENAL #### [facility] [address] [address] [address] Ember LOCKWOOD NEG BACILLI Normal [facility] Comment on above: Performed By: #### R ENAL #### [facility] [address] [place] [address] Dr. Ember LOCKWOOD NEG DIPPLOCOCCI FEW Normal [facility] Comment on above: Performed By: #### R ENAL #### [facility] [address] [address] [address] Ember Teague GRAM POS BACILLI FEW Normal [facility] Comment on above: Performed By: #### R ENAL #### [facility] [address] [place] [address] Dr. Ember Teague GRAM POSITIVE COCCI MANY Normal [facility] Comment on above: Performed By: #### R ENAL #### [facility] [address] [address] [address] Ember Teague WBC (Bld) [#/Vol] 10*3/uL Normal [facility] Comment on above: Performed By: #### R ENAL #### [facility] [address] [place] [address] Dr. Ember Teague XR CHEST 2 Von [...] ANGELINA BRISENO Date: 2022-10-24 16:22 Normal [facility] FERRITINon 09-18-2022 Ferritin [Mass/Vol] 612.0 ng/mL Critically high 8.0-252.0 [facility] Comment on above: Performed By: #### F ERR, FETIBC #### [facility] [address] [place] [address] Dr. Ember Teague HEMOGRAM AND PLATELon 2021 Hematocrit (Bld) [Volume fraction] 28.1 % Critically low 36.0-48.0 [facility] Comment on above: Performed By: #### C BC #### [facility] [address] [place] [address] Dr. Ember Teague Hemoglobin (Bld) [Mass/Vol] 9.7 g/dL Critically low 12.0-16.0 [facility] Comment on above: Performed By: #### C BC #### [facility] [address] [place] [address] Dr. Ember Teague MCH (RBC) [Entitic mass] 31.3 pg Normal 26.7-34.0 [facility] Comment on above: Performed By: #### C BC #### [facility] [address] [place] [address] Dr. Ember Teague MCHC (RBC) [Mass/Vol] 34.5 g/dL Normal 29.9-35.2 [facility] Comment on above: Performed By: #### C BC #### [facility] [address] [place] [address] Dr. Ember Teague MCV (RBC) [Entitic vol] 90.6 fL Normal 81.0-99.0 [facility] Comment on above: Performed By: #### C BC #### [facility] [address] [place] [address] Dr. Ember Teague PLT 183 103/ul Normal 150-450 [facility] Comment on above: Performed By: #### C BC #### [facility] [address] [place] [address] Dr. Ember Teague RBC 3.10 106/ul Critically low 4.20-5.40 [facility] Comment on above: Performed By: #### C BC #### [facility] [address] [place] [address] Dr. Ember Teague WBC 7.2 103/ul Normal 4.0-11.0 [facility] Comment on above: Performed By: #### C BC #### [facility] [address] [place] [address] Dr. Ember Teague IRON AND TIBCon 09-18-2022 % SATURATION 36.0 % Normal [facility] Comment on above: Performed By: #### F ERR, FETIBC #### [facility] [address] [place] [address] Dr. Ember Teague Iron [Mass/Vol] 77.0 ug/dL Normal 50.0-170.0 [facility] Comment on above: Performed By: #### F ERR, FETIBC #### [facility] [address] [address] [address] Ember Teague TIBC DIRECT 214.0 ug/dL Critically low 250.0-450.0 [facility] Comment on above: Performed By: #### F ERR, FETIBC #### [facility] [address] [address] [address] Ember Teague RENAL FUNCTION PANELon 09-18 Albumin [Mass/Vol] 3.7 g/dL Normal 3.4-5.0 [facility] Comment on above: Performed By: #### R ENAL #### [facility] [address] [place] [address] Dr. Ember Teague Calcium [Mass/Vol] 9.5 mg/dL Normal 8.5-10.1 [facility] Comment on above: Performed By: #### R ENAL #### [facility] [address] [address] [address] Ember Teague Chloride [Moles/Vol] 103 mmol/L Normal 98-107 [facility] Comment on above: Performed By: #### R ENAL #### [facility] [address] [place] [address] Dr. Ember Teague CO2 [Moles/Vol] 21.1 mmol/L Normal 21.0-32.0 [facility] Comment on above: Performed By: #### R ENAL #### [facility] [address] [address] [address] Ember Teague Creatinine [Mass/Vol] 1.85 mg/dL Critically high 0.55-1.02 [facility] Comment on above: Performed By: #### R ENAL #### [facility] [address] [place] [address] Dr. Ember Teague EGFR-AF CHADIAN 32 mL/min/1.73m2 Critically low >=60 [facility] Comment on above: Performed By: #### R ENAL #### [facility] [address] [place] [address] Dr. Ember Teague EGFR-NON AF CHADIAN 26 mL/min/1.73m2 Critically low >=60 [facility] Comment on above: Performed By: #### R ENAL #### [facility] [address] [place] [address] Dr. Ember Teague Glucose [Mass/Vol] 183 mg/dL Critically high 74-106 [facility] Comment on above: Performed By: #### R ENAL #### [facility] [address] [place] [address] Dr. Ember Teague Phosphate [Mass/Vol] 3.7 mg/dL Normal 2.6-4.7 [facility] Comment on above: Performed By: #### R ENAL #### [facility] [address] [place] [address] Dr. Ember Teague Potassium [Moles/Vol] 4.9 mmol/L Normal 3.5-5.1 [facility] Comment on above: Performed By: #### R ENAL #### [facility] [address] [place] [address] Dr. Ember Teague Sodium [Moles/Vol] 138 mmol/L Normal 136-145 [facility] Comment on above: Performed By: #### R ENAL #### [facility] [address] [place] [address] Dr. Ember Teague Urea nitrogen [Mass/Vol] 40.0 mg/dL Critically high 7.0-18.0 [facility] Comment on above: Performed By: #### R ENAL #### [facility] [address] [place] [address] Dr. Ember Teague CULTURE URINEon 09-15-2022 CULTURE URINE Isolate 1 Citrobacter freundii >100,000 cfu/mL of ORGANISM 1 Citrobacter freundii ANTIBIOTIC M.I.C RX STATUS Piperacillin/Tazobact am <=4 S F Cefazolin >=64 R F Ceftazidime <=1 S F Ceftriaxone <=1 S F Ertapenem <=0.5 S F Imipenem <=0.25 S F Amikacin <=2 S F Gentamicin <=1 S F Tobramycin <=1 S F Ciprofloxacin <=0.25 S F Levofloxacin 0.5 S F Nitrofurantoin 32 S F Trimethoprim/Sulfamet hoxazole <=20 S F Normal [facility] Comment on above: Performed By: #### R ENAL #### [facility] [address] [place] [address] Dr. Ember Teague BNPon 09-11-2022 Natriuretic peptide B (Bld) [Mass/Vol] 408.0 pg/mL Normal <=1,800.0 [facility] Comment on above: Performed By: #### P THINT #### [facility] [address] [place] [address] Dr. Ember Teague CBC AUTO DIFFon 09-11-2022 BASO # 0.0 103/ul Normal 0.0-0.1 [facility] Comment on above: Performed By: #### C BC #### [facility] [address] [place] [address] Dr. Ember Teague Basophils/100 WBC (Bld) 0.3 % Normal 0.2-2.0 [facility] Comment on above: Performed By: #### C BC #### [facility] [address] [place] [address] Dr. Ember Teague EO # 0.1 103/ul Normal 0.0-0.7 [facility] Comment on above: Performed By: #### C BC #### [facility] [address] [place] [address] Dr. Ember Tegaue Eosinophils/100 WBC (Bld) 1.9 % Normal 0.9-7.0 [facility] Comment on above: Performed By: #### C BC #### [facility] [address] [place] [address] Dr. Ember Teague Erythrocyte distribution width (RBC) [Ratio] 15.2 % Critically high 11.0-15.0 [facility] Comment on above: Performed By: #### C BC #### [facility] [address] [place] [address] Dr. Ember Teague Hematocrit (Bld) [Volume fraction] 26.6 % Critically low 36.0-48.0 [facility] Comment on above: Performed By: #### C BC #### [facility] [address] [place] [address] Dr. Ember Teague Hemoglobin (Bld) [Mass/Vol] 9.0 g/dL Critically low 12.0-16.0 [facility] Comment on above: Performed By: #### C BC #### [facility] [address] [place] [address] Dr. Ember Teague IG # 0.02 10e3/ul Normal 0.00-0.03 [facility] Comment on above: Performed By: #### C BC #### [facility] [address] [place] [address] Dr. Ember Teague IG % 0.3 % Normal 0.0-0.5 [facility] Comment on above: Performed By: #### C BC #### [facility] [address] [place] [address] Dr. Ember Teague LYMPH # 1.9 103/ul Normal 1.2-3.8 [facility] Comment on above: Performed By: #### C BC #### [facility] [address] [place] [address] Dr. Ember Teague Lymphocytes/100 WBC (Bld) 32.4 % Normal 20.5-60.0 [facility] Comment on above: Performed By: #### C BC #### [facility] [address] [place] [address] Dr. Ember Teague MANUAL DIFF REQ NO Normal [facility] Comment on above: Performed By: #### C BC #### [facility] [address] [place] [address] Dr. Ember Teague MCH (RBC) [Entitic mass] 31.1 pg Normal 26.7-34.0 [facility] Comment on above: Performed By: #### C BC #### [facility] [address] [place] [address] Dr. Ember Teague MCHC (RBC) [Mass/Vol] 33.8 g/dL Normal 29.9-35.2 [facility] Comment on above: Performed By: #### C BC #### [facility] [address] [address] [address] Ember Teague MCV (RBC) [Entitic vol] 92.0 fL Normal 81.0-99.0 [facility] Comment on above: Performed By: #### C BC #### [facility] [address] [address] [address] Ember Teague MONO # 0.6 103/ul Normal 0.3-0.8 [facility] Comment on above: Performed By: #### C BC #### [facility] [address] [address] [address] Ember Teague Monocytes/100 WBC (Bld) 10.0 % Normal 1.7-12.0 [facility] Comment on above: Performed By: #### C BC #### [facility] [address] [place] [address] Dr. Ember Teague NEUT # 3.2 103/ul Normal 1.4-6.5 [facility] Comment on above: Performed By: #### C BC #### [facility] [address] [place] [address] Dr. Ember Teague Neutrophils/100 WBC (Bld) 55.1 % Normal 43.0-75.0 [facility] Comment on above: Performed By: #### C BC #### [facility] [address] [place] [address] Dr. Ember Teague Platelet mean volume (Bld) [Entitic vol] 9.4 fL Critically low 9.5-13.5 [facility] Comment on above: Performed By: #### C BC #### [facility] [address] [address] [address] Ember Teague PLT 196 103/ul Normal 150-450 [facility] Comment on above: Performed By: #### C BC #### [facility] [address] [place] [address] Dr. Ember Teague RBC 2.89 106/ul Critically low 4.20-5.40 [facility] Comment on above: Performed By: #### C BC #### [facility] [address] [place] [address] Dr. Ember Teague WBC 5.8 103/ul Normal 4.0-11.0 [facility] Comment on above: Performed By: #### C BC #### [facility] [address] [place] [address] Dr. Ember Teague PROF 14(COMP METB)on 022 Albumin [Mass/Vol] 3.7 g/dL Normal 3.4-5.0 [facility] Comment on above: Performed By: #### P THINT #### [facility] [address] [place] [address] Dr. Ember Teague Albumin/Globulin [Mass ratio] 1.0 {ratio} Normal [facility] Comment on above: Performed By: #### P THINT #### [facility] [address] [place] [address] Dr. Ember Teague ALP [Catalytic activity/Vol] 79 U/L Normal 46-116 [facility] Comment on above: Performed By: #### P THINT #### [facility] [address] [place] [address] Dr. Ember Teague ALT [Catalytic activity/Vol] 24 U/L Normal 14-59 [facility] Comment on above: Performed By: #### P THINT #### [facility] [address] [place] [address] Dr. Ember Teague Anion gap [Moles/Vol] 12.8 mmol/L Normal [facility] Comment on above: Performed By: #### P THINT #### [facility] [address] [place] [address] Dr. Ember Teague AST [Catalytic activity/Vol] 17 U/L Normal 15-37 [facility] Comment on above: Performed By: #### P THINT #### [facility] [address] [place] [address] Dr. Ember Teague Bilirubin [Mass/Vol] 0.5 mg/dL Normal 0.2-1.0 [facility] Comment on above: Performed By: #### P THINT #### [facility] [address] [place] [address] Dr. Ember Teague Calcium [Mass/Vol] 9.4 mg/dL Normal 8.5-10.1 [facility] Comment on above: Performed By: #### P THINT #### [facility] [address] [address] [address] Ember Teague Chloride [Moles/Vol] 101 mmol/L Normal 98-107 [facility] Comment on above: Performed By: #### P THINT #### [facility] [address] [address] [address] Ember Teague CO2 [Moles/Vol] 24.3 mmol/L Normal 21.0-32.0 [facility] Comment on above: Performed By: #### P THINT #### [facility] [address] [place] [address] Dr. Ember Teague Creatinine [Mass/Vol] 2.84 mg/dL Critically high 0.55-1.02 [facility] Comment on above: Performed By: #### P THINT #### [facility] [address] [place] [address] Dr. Ember Teague EGFR-AF CHADIAN 20 mL/min/1.73m2 Critically low >=60 [facility] Comment on above: Performed By: #### P THINT #### [facility] [address] [place] [address] Dr. Ember Teague EGFR-NON AF CHADIAN 16 mL/min/1.73m2 Critically low >=60 [facility] Comment on above: Performed By: #### P THINT #### [facility] [address] [address] [address] Ember Teague Globulin (S) [Mass/Vol] 3.7 g/dL Normal [facility] Comment on above: Performed By: #### P THINT #### [facility] [address] [address] [address] Ember Teague Glucose [Mass/Vol] 174 mg/dL Critically high 74-106 [facility] Comment on above: Performed By: #### P THINT #### [facility] [address] [address] [address] Ember Teague Potassium [Moles/Vol] 5.1 mmol/L Normal 3.5-5.1 [facility] Comment on above: Performed By: #### P THINT #### [facility] [address] [address] [address] Ember Teague Protein [Mass/Vol] 7.4 g/dL Normal 6.4-8.2 [facility] Comment on above: Performed By: #### P THINT #### [facility] [address] [address] [address] Ember Teague Sodium [Moles/Vol] 133 mmol/L Critically low 136-145 [facility] Comment on above: Performed By: #### P THINT #### [facility] [address] [place] [address] Dr. Ember Teague Urea nitrogen [Mass/Vol] 68.0 mg/dL Critically high 7.0-18.0 [facility] Comment on above: Performed By: #### P THINT #### [facility] [address] [place] [address] Dr. Ember Teague Urea nitrogen/Creatinine [Mass ratio] 23.9 mg/mg Normal [facility] Comment on above: Performed By: #### P THINT #### [facility] [address] [place] [address] Dr. Ember Teague TROPONIN, HIGH SENSITIVITYon 09-11-2022 HSTROP 9.1 pg/mL Normal 4.0-51.3 [facility] Comment on above: Result Comment: CUT- OFF POINTS HAVE BEEN ESTABLISHED BASED ON THE FOURTH UNIVERSAL DEFINITIONS OF MYOCARDIAL INFARCTION. THE UPPER REFERENCE LIMIT (URL) OF TROPONIN, DEFINED THE 99TH PERCENTILE OF cTnI DISTRIBUTION IN A REFERENCE POPULATION, HAS BEEN CONFIRMED THE DECISION THRESHOLD FOR HI DIAGNOSIS. Performed By: #### P THINT #### [facility] [address] [place] [address] Dr. Ember Teague UA RANDOM W/MICROSCOPICon BACTERIA NONE SEEN Normal NONE SEEN [facility] Comment on above: Performed By: #### C VDTBH #### [facility] [address] [place] [address] Dr. Ember Teague Bilirubin Ql (U) Negative Normal NEGATIVE [facility] Comment on above: Performed By: #### C VDTBH #### [facility] [address] [place] [address] Dr. Ember Teague CAST NONE SEEN Normal NONE SEEN [facility] Comment on above: Performed By: #### C VDTBH #### [facility] [address] [place] [address] Dr. Ember Teague Clarity (U) CLEAR Normal CLEAR [facility] Comment on above: Performed By: #### C VDTBH #### [facility] [address] [place] [address] Dr. Ember Teague Color (U) LT. YELLOW Normal YELLOW [facility] Comment on above: Performed By: #### C VDTBH #### [facility] [address] [place] [address] Dr. Ember Teague Crystals LM Nom (Urine sed) NONE SEEN Normal NONE SEEN [facility] Comment on above: Performed By: #### C VDTBH #### [facility] [address] [place] [address] Dr. Ember Teague Epithelial cells LM Ql (Urine sed) FEW Abnormal NONE SEEN /RARE [facility] Comment on above: Performed By: #### C VDTBH #### [facility] [address] [place] [address] Dr. Ember Teague Glucose Ql (U) Negative Normal NEGATIVE [facility] Comment on above: Performed By: #### C VDTBH #### [facility] [address] [place] [address] Dr. Ember Teague Hemoglobin Ql (U) Negative Normal NEGATIVE [facility] Comment on above: Performed By: #### C VDTBH #### [facility] [address] [place] [address] Dr. Ember Teague Ketones Ql (U) Negative Normal NEGATIVE [facility] Comment on above: Performed By: #### C VDTBH #### [facility] [address] [place] [address] Dr. Ember Teague LEUKOCYTES Negative Normal NEGATIVE [facility] Comment on above: Performed By: #### C VDTBH #### [facility] [address] [place] [address] Dr. Ember Teague MUCOUS NONE SEEN Normal NONE SEEN [facility] Comment on above: Performed By: #### C VDTBH #### [facility] [address] [place] [address] Dr. Ember Teague Nitrite Ql (U) Negative Normal NEGATIVE [facility] Comment on above: Performed By: #### C VDTBH #### [facility] [address] [place] [address] Dr. Ember Teague pH (U) 5.5 [pH] Normal 5-9 [facility] Comment on above: Performed By: #### C VDTBH #### [facility] [address] [place] [address] Dr. Ember Teague RBC NONE SEEN Abnormal 0-2 [facility] Comment on above: Performed By: #### C VDTBH #### [facility] [address] [place] [address] Dr. Ember Teague SPEC GRAVITY 1.010 Normal 1.005-<=1.025 [facility] Comment on above: Performed By: #### C VDTBH #### [facility] [address] [place] [address] Dr. Ember Teague UA PROTEIN Negative Normal NEGATIVE/ TRACE [facility] Comment on above: Performed By: #### C VDTBH #### [facility] [address] [place] [address] Dr. Ember Teague Urobilinogen Qn (U) 0.2 {Seau'U}/dL Normal 0.2 - 1. 0 [facility] Comment on above: Performed By: #### C VDTBH #### [facility] [address] [place] [address] Dr. Ember Teague WBC NONE SEEN Normal NONE SEEN [facility] Comment on above: Performed By: #### C VDTBH #### [facility] [address] [place] [address] Dr. Ember Teague CBC AUTO DIFFon 08-13-2022 BASO # 0.0 103/ul Normal 0.0-0.1 [facility] Comment on above: Performed By: #### C BC #### [facility] [address] [place] [address] Dr. Ember Teague Basophils/100 WBC (Bld) 0.3 % Normal 0.2-2.0 [facility] Comment on above: Performed By: #### C BC #### [facility] [address] [place] [address] Dr. Ember Teague EO # 0.2 103/ul Normal 0.0-0.7 [facility] Comment on above: Performed By: #### C BC #### [facility] [address] [place] [address] Dr. Ember Teague Eosinophils/100 WBC (Bld) 3.7 % Normal 0.9-7.0 [facility] Comment on above: Performed By: #### C BC #### [facility] [address] [place] [address] Dr. Ember Teague Erythrocyte distribution width (RBC) [Ratio] 15.0 % Normal 11.0-15.0 [facility] Comment on above: Performed By: #### C BC #### [facility] [address] [place] [address] Dr. Ember Teague Hematocrit (Bld) [Volume fraction] 27.9 % Critically low 36.0-48.0 [facility] Comment on above: Performed By: #### C BC #### [facility] [address] [place] [address] Dr. Ember Teague Hemoglobin (Bld) [Mass/Vol] 9.7 g/dL Critically low 12.0-16.0 [facility] Comment on above: Performed By: #### C BC #### [facility] [address] [place] [address] Dr. Ember Teague IG # 0.01 10e3/ul Normal 0.00-0.03 [facility] Comment on above: Performed By: #### C BC #### [facility] [address] [place] [address] Dr. Ember Teague IG % 0.2 % Normal 0.0-0.5 [facility] Comment on above: Performed By: #### C BC #### [facility] [address] [place] [address] Dr. Ember Teague LYMPH # 1.9 103/ul Normal 1.2-3.8 [facility] Comment on above: Performed By: #### C BC #### [facility] [address] [place] [address] Dr. Ember Teague Lymphocytes/100 WBC (Bld) 32.2 % Normal 20.5-60.0 [facility] Comment on above: Performed By: #### C BC #### [facility] [address] [place] [address] Dr. Ember Teague MANUAL DIFF REQ NO Normal [facility] Comment on above: Performed By: #### C BC #### [facility] [address] [place] [address] Dr. Ember Teague MCH (RBC) [Entitic mass] 31.4 pg Normal 26.7-34.0 [facility] Comment on above: Performed By: #### C BC #### [facility] [address] [place] [address] Dr. Ember Teague MCHC (RBC) [Mass/Vol] 34.8 g/dL Normal 29.9-35.2 [facility] Comment on above: Performed By: #### C BC #### [facility] [address] [place] [address] Dr. Ember Teague MCV (RBC) [Entitic vol] 90.3 fL Normal 81.0-99.0 [facility] Comment on above: Performed By: #### C BC #### [facility] [address] [place] [address] Dr. Ember Teague MONO # 0.6 103/ul Normal 0.3-0.8 [facility] Comment on above: Performed By: #### C BC #### [facility] [address] [place] [address] Dr. Ember Teague Monocytes/100 WBC (Bld) 9.8 % Normal 1.7-12.0 [facility] Comment on above: Performed By: #### C BC #### [facility] [address] [place] [address] Dr. Ember Teague NEUT # 3.2 103/ul Normal 1.4-6.5 [facility] Comment on above: Performed By: #### C BC #### [facility] [address] [place] [address] Dr. Ember Teague Neutrophils/100 WBC (Bld) 53.8 % Normal 43.0-75.0 [facility] Comment on above: Performed By: #### C BC #### [facility] [address] [place] [address] Dr. Ember Teague Platelet mean volume (Bld) [Entitic vol] 10.0 fL Normal 9.5-13.5 [facility] Comment on above: Performed By: #### C BC #### [facility] [address] [place] [address] Dr. Ember Teague PLT 194 103/ul Normal 150-450 [facility] Comment on above: Performed By: #### C BC #### [facility] [address] [place] [address] Dr. Ember Teague RBC 3.09 106/ul Critically low 4.20-5.40 [facility] Comment on above: Performed By: #### C BC #### [facility] [address] [place] [address] Dr. Ember Teague WBC 6.0 103/ul Normal 4.0-11.0 [facility] Comment on above: Performed By: #### C BC #### [facility] [address] [place] [address] Dr. Ember Teague PTH INTACTon 06-26-2022 PTH, Intact 39 pg/mL Normal 15-65 [facility] Comment on above: Performed By: #### P THINT #### [facility] [address] [place] [address] Dr. Ember Teague CBC AUTO DIFFon 06-25-2022 BASO # 0.1 103/ul Normal 0.0-0.1 [facility] Comment on above: Performed By: #### C VDTBH #### [facility] [address] [place] [address] Dr. Ember Teague Basophils/100 WBC (Bld) 0.6 % Normal 0.2-2.0 [facility] Comment on above: Performed By: #### C VDTBH #### [facility] [address] [place] [address] Dr. Ember Teague EO # 0.2 103/ul Normal 0.0-0.7 [facility] Comment on above: Performed By: #### C VDTBH #### [facility] [address] [place] [address] Dr. Ember Teague Eosinophils/100 WBC (Bld) 3.0 % Normal 0.9-7.0 [facility] Comment on above: Performed By: #### C VDTBH #### [facility] [address] [place] [address] Dr. Ember Teague Erythrocyte distribution width (RBC) [Ratio] 14.2 % Normal 11.0-15.0 [facility] Comment on above: Performed By: #### C VDTBH #### [facility] [address] [place] [address] Dr. Ember Teague Hematocrit (Bld) [Volume fraction] 30.9 % Critically low 36.0-48.0 [facility] Comment on above: Performed By: #### C VDTBH #### [facility] [address] [place] [address] Dr. Ember Teague Hemoglobin (Bld) [Mass/Vol] 10.6 g/dL Critically low 12.0-16.0 [facility] Comment on above: Performed By: #### C VDTBH #### [facility] [address] [place] [address] Dr. Ember Teague IG # 0.04 10e3/ul Critically high 0.00-0.03 [facility] Comment on above: Performed By: #### C VDTBH #### [facility] [address] [place] [address] Dr. Ember Teague IG % 0.5 % Normal 0.0-0.5 [facility] Comment on above: Performed By: #### C VDTBH #### [facility] [address] [place] [address] Dr. Ember Teague LYMPH # 2.2 103/ul Normal 1.2-3.8 [facility] Comment on above: Performed By: #### C VDTBH #### [facility] [address] [place] [address] Dr. Ember Teague Lymphocytes/100 WBC (Bld) 27.0 % Normal 20.5-60.0 [facility] Comment on above: Performed By: #### C VDTBH #### [facility] [address] [place] [address] Dr. Ember Teague MANUAL DIFF REQ NO Normal [facility] Comment on above: Performed By: #### C VDTBH #### [facility] [address] [place] [address] Dr. Ember Teague MCH (RBC) [Entitic mass] 31.2 pg Normal 26.7-34.0 [facility] Comment on above: Performed By: #### C VDTBH #### [facility] [address] [place] [address] Dr. Ember Teague MCHC (RBC) [Mass/Vol] 34.3 g/dL Normal 29.9-35.2 [facility] Comment on above: Performed By: #### C VDTBH #### [facility] [address] [place] [address] Dr. Ember Teague MCV (RBC) [Entitic vol] 90.9 fL Normal 81.0-99.0 [facility] Comment on above: Performed By: #### C VDTBH #### [facility] [address] [place] [address] Dr. Ember Teague MONO # 0.7 103/ul Normal 0.3-0.8 [facility] Comment on above: Performed By: #### C VDTBH #### [facility] [address] [address] [address] Ember Teague Monocytes/100 WBC (Bld) 9.2 % Normal 1.7-12.0 [facility] Comment on above: Performed By: #### C VDTBH #### [facility] [address] [address] [address] Ember Teague NEUT # 4.8 103/ul Normal 1.4-6.5 [facility] Comment on above: Performed By: #### C VDTBH #### [facility] [address] [place] [address] Dr. Ember Teague Neutrophils/100 WBC (Bld) 59.7 % Normal 43.0-75.0 [facility] Comment on above: Performed By: #### C VDTBH #### [facility] [address] [place] [address] Dr. Ember Teague Platelet mean volume (Bld) [Entitic vol] 9.3 fL Critically low 9.5-13.5 [facility] Comment on above: Performed By: #### C VDTBH #### [facility] [address] [place] [address] Dr. Ember Teague PLT 227 103/ul Normal 150-450 [facility] Comment on above: Performed By: #### C VDTBH #### [facility] [address] [place] [address] Dr. Ember Teague RBC 3.40 106/ul Critically low 4.20-5.40 [facility] Comment on above: Performed By: #### C VDTBH #### [facility] [address] [place] [address] Dr. Ember Teague WBC 8.0 103/ul Normal 4.0-11.0 [facility] Comment on above: Performed By: #### C VDTBH #### [facility] [address] [place] [address] Dr. Ember Teague MRI LSPINE WO CONon 06-25-20 MRI LSPINE WO CON EXAMINATION: MRI LSPINE WO CON HISTORY: Collapse of vertebra of [...] YANET HUERTA Date: 2022-06-25 08:45 Normal [facility] RENAL FUNCTION PANELon 06-25 Albumin [Mass/Vol] 3.9 g/dL Normal 3.4-5.0 [facility] Comment on above: Performed By: #### P THINT #### [facility] [address] [address] [address] Ember Teague Calcium [Mass/Vol] 9.5 mg/dL Normal 8.5-10.1 [facility] Comment on above: Performed By: #### P THINT #### [facility] [address] [address] [address] Ember Teague Chloride [Moles/Vol] 102 mmol/L Normal 98-107 [facility] Comment on above: Performed By: #### P THINT #### [facility] [address] [address] [address] Ember Teague CO2 [Moles/Vol] 23.8 mmol/L Normal 21.0-32.0 [facility] Comment on above: Performed By: #### P THINT #### [facility] [address] [address] [address] Ember Teague Creatinine [Mass/Vol] 1.75 mg/dL Critically high 0.55-1.02 [facility] Comment on above: Performed By: #### P THINT #### [facility] [address] [address] [address] Ember Teague EGFR-AF CHADIAN 34 mL/min/1.73m2 Critically low >=60 [facility] Comment on above: Performed By: #### P THINT #### [facility] [address] [address] [address] Ember Teague EGFR-NON AF CHADIAN 28 mL/min/1.73m2 Critically low >=60 [facility] Comment on above: Performed By: #### P THINT #### [facility] [address] [address] [address] Ember Teague Glucose [Mass/Vol] 199 mg/dL Critically high 74-106 [facility] Comment on above: Performed By: #### P THINT #### [facility] [address] [address] [address] Ember Teague Phosphate [Mass/Vol] 4.3 mg/dL Normal 2.6-4.7 [facility] Comment on above: Performed By: #### P THINT #### [facility] [address] [address] [address] Ember Teague Potassium [Moles/Vol] 4.9 mmol/L Normal 3.5-5.1 [facility] Comment on above: Performed By: #### P THINT #### [facility] [address] [address] [address] Ember Teague Sodium [Moles/Vol] 135 mmol/L Critically low 136-145 [facility] Comment on above: Performed By: #### P THINT #### [facility] [address] [place] [address] Dr. Ember Teague Urea nitrogen [Mass/Vol] 34.0 mg/dL Critically high 7.0-18.0 [facility] Comment on above: Performed By: #### P THINT #### [facility] [address] [address] [address] Ember Teague VITAMIN D 25 OHon 06-25-2022 VIT D 25-OH 40.6 ng/mL Normal [facility] Comment on above: Performed By: #### P THINT #### [facility] [address] [address] [address] Ember Teague VIT D RANGES SEE BELOW Normal [facility] Comment on above: Result Comment: <20 ng/mL Vit D deficient 20 - <30 ng/mL Vit D insufficient 30 - 100 ng/mL Vit D sufficient >100 ng/mL Potential Toxicity Performed By: #### P THINT #### [facility] [address] [address] [address] Ember Teague [facility]07 SARS-CoV-2 (COVID-19) RNA ALEXX+probe Ql (Unsp spec) Not detected Normal NOT DETECTED [facility] Comment on above: Result Comment: This test is not yet approved or cleared by the [place] FDA. When there are no FDA-approved or cleared tests available, and other criteria are met, FDA can make tests available under an emergency access mechanism called an Emergency Use Authorization (EUA). The EUA for this test is supported by the [place] of Health and Human Service's (HHS's) declaration [...] with SARS-CoV-2. Performed By: #### C [facility] #### [facility] [address] [address] LSPINE WO CONon CT LSPINE WO CON EXAMINATION: CT LSPINE WO CON, 06/01/2022 7:48 AM EDT HISTORY: [...] by: YANET HUERTA Date: 2022-06-01 18:02 Normal [facility] XR LSPINE MIN 4 VIEWSon 05-07 XR LSPINE MIN 4 VIEWS EXAMINATION: XR LSPINE MIN 4 VIEWS HISTORY: Low back pain [...] YANET HUERTA Date: 2022-05-21 15:25 Normal [facility] PTH INTACTon 05-03-2022 PTH, Intact 60 pg/mL Normal 15-65 [facility] Comment on above: Performed By: #### C VDTBH #### [facility] [address] [address] [address] Ember Teague VIT D 25-OH LABC[facility]Pon 2021 Vitamin D, 25-Hydroxy 26.1 ng/mL Critically low 30.0-100.0 [facility] Comment on above: Result Comment: Sara min D deficiency has been defined by the [place] of Medicine and an Endocrine Society practice guideline as a level of serum 25-OH vitamin D less than 20 ng/mL (1,2). The Endocrine Society went on to further define vitamin D insufficiency as a level between 21 and 29 ng/mL (2). 1. IOM ([place] of Medicine). 2010. Dietary reference intakes for calcium and D. [place]: The National Academies Press. 2. Sherice MF, Wendy NC, Huan ZHONG, et al. Evaluation, treatment, and prevention of vitamin D deficiency: an Endocrine Society clinical practice guideline. JCEM. 2010; 96(7):1911-30. Performed By: #### R ENAL #### [facility] [address] [address] [address] Ember Teague FERRITINon 05-02-2022 Ferritin [Mass/Vol] 590.0 ng/mL Critically high 8.0-252.0 [facility] Comment on above: Performed By: #### R ENAL #### [facility] [address] [address] [address] Ember Teague HEMOGRAM AND PLATELon 2021 Hematocrit (Bld) [Volume fraction] 28.4 % Critically low 36.0-48.0 [facility] Comment on above: Performed By: #### C VDTBH #### [facility] [address] [place] [address] Dr. Ember Teague Hemoglobin (Bld) [Mass/Vol] 9.6 g/dL Critically low 12.0-16.0 [facility] Comment on above: Performed By: #### C VDTBH #### [facility] [address] [place] [address] Dr. Ember Teague MCH (RBC) [Entitic mass] 31.0 pg Normal 26.7-34.0 [facility] Comment on above: Performed By: #### C VDTBH #### [facility] [address] [place] [address] Dr. Ember Teague MCHC (RBC) [Mass/Vol] 33.8 g/dL Normal 29.9-35.2 [facility] Comment on above: Performed By: #### C VDTBH #### [facility] [address] [place] [address] Dr. Ember Teague MCV (RBC) [Entitic vol] 91.6 fL Normal 81.0-99.0 [facility] Comment on above: Performed By: #### C VDTBH #### [facility] [address] [place] [address] Dr. Ember Teague PLT 189 103/ul Normal 150-450 [facility] Comment on above: Performed By: #### C VDTBH #### [facility] [address] [place] [address] Dr. Ember Teague RBC 3.10 106/ul Critically low 4.20-5.40 [facility] Comment on above: Performed By: #### C VDTBH #### [facility] [address] [place] [address] Dr. Ember Teague WBC 6.2 103/ul Normal 4.0-11.0 [facility] Comment on above: Performed By: #### C VDTBH #### [facility] [address] [place] [address] Dr. Ember Teague IRON AND TIBCon 05-02-2022 % SATURATION 34.3 % Normal [facility] Comment on above: Performed By: #### R ENAL #### [facility] [address] [address] [address] Ember Teague Iron [Mass/Vol] 69.0 ug/dL Normal 50.0-170.0 [facility] Comment on above: Performed By: #### R ENAL #### [facility] [address] [address] [address] Ember Teague TIBC DIRECT 201.0 ug/dL Critically low 250.0-450.0 [facility] Comment on above: Performed By: #### R ENAL #### [facility] [address] [place] [address] Dr. Ember Teague MAGNESIUMon 05-02-2022 Magnesium [Mass/Vol] 1.7 mg/dL Critically low 1.8-2.4 [facility] Comment on above: Performed By: #### C VDTBH #### [facility] [address] [place] [address] Dr. Ember Teague RENAL FUNCTION PANELon 05-02 Albumin [Mass/Vol] 3.6 g/dL Normal 3.4-5.0 [facility] Comment on above: Performed By: #### C VDTBH #### [facility] [address] [place] [address] Dr. Ember Teague Calcium [Mass/Vol] 9.2 mg/dL Normal 8.5-10.1 [facility] Comment on above: Performed By: #### C VDTBH #### [facility] [address] [place] [address] Dr. Ember Teague Chloride [Moles/Vol] 107 mmol/L Normal 98-107 [facility] Comment on above: Performed By: #### C VDTBH #### [facility] [address] [place] [address] Dr. Ember Teague CO2 [Moles/Vol] 21.2 mmol/L Normal 21.0-32.0 [facility] Comment on above: Performed By: #### C VDTBH #### [facility] [address] [address] [address] Ember Teague Creatinine [Mass/Vol] 1.75 mg/dL Critically high 0.55-1.02 [facility] Comment on above: Performed By: #### C VDTBH #### [facility] [address] [place] [address] Dr. Ember Teague EGFR-AF CHADIAN 34 mL/min/1.73m2 Critically low >=60 [facility] Comment on above: Performed By: #### C VDTBH #### [facility] [address] [place] [address] Dr. Ember Teague EGFR-NON AF CHADIAN 28 mL/min/1.73m2 Critically low >=60 [facility] Comment on above: Performed By: #### C VDTBH #### [facility] [address] [place] [address] Dr. Ember Teague Glucose [Mass/Vol] 193 mg/dL Critically high 74-106 [facility] Comment on above: Performed By: #### C VDTBH #### [facility] [address] [place] [address] Dr. Ember Teague Phosphate [Mass/Vol] 4.2 mg/dL Normal 2.6-4.7 [facility] Comment on above: Performed By: #### C VDTBH #### [facility] [address] [place] [address] Dr. Ember Teague Potassium [Moles/Vol] 5.1 mmol/L Normal 3.5-5.1 [facility] Comment on above: Performed By: #### C VDTBH #### [facility] [address] [place] [address] Dr. Ember Teague Sodium [Moles/Vol] 139 mmol/L Normal 136-145 [facility] Comment on above: Performed By: #### C VDTBH #### [facility] [address] [place] [address] Dr. Ember Teague Urea nitrogen [Mass/Vol] 34.0 mg/dL Critically high 7.0-18.0 [facility] Comment on above: Performed By: #### C VDTBH #### [facility] [address] [address] [address] Ember Teague UA RANDOM W/MICROSCOPICon BACTERIA SMALL Abnormal NONE SEEN [facility] Comment on above: Performed By: #### C VDTBH #### [facility] [address] [address] [address] Ember Teague Bilirubin Ql (U) Negative Normal NEGATIVE [facility] Comment on above: Performed By: #### C VDTBH #### [facility] [address] [place] [address] Dr. Ember Teague CAST NONE SEEN Normal NONE SEEN [facility] Comment on above: Performed By: #### C VDTBH #### [facility] [address] [place] [address] Dr. Ember Teague Clarity (U) CLEAR Normal CLEAR [facility] Comment on above: Performed By: #### C VDTBH #### [facility] [address] [place] [address] Dr. Ember Teague Color (U) LT. YELLOW Normal YELLOW [facility] Comment on above: Performed By: #### C VDTBH #### [facility] [address] [place] [address] Dr. Ember Teague Crystals LM Nom (Urine sed) NONE SEEN Normal NONE SEEN [facility] Comment on above: Performed By: #### C VDTBH #### [facility] [address] [place] [address] Dr. Ember Teague Epithelial cells LM Ql (Urine sed) MODERATE Abnormal NONE SEEN /RARE [facility] Comment on above: Performed By: #### C VDTBH #### [facility] [address] [place] [address] Dr. Ember Teague Glucose Ql (U) Negative Normal NEGATIVE [facility] Comment on above: Performed By: #### C VDTBH #### [facility] [address] [place] [address] Dr. Ember Teague Hemoglobin Ql (U) Negative Normal NEGATIVE [facility] Comment on above: Performed By: #### C VDTBH #### [facility] [address] [place] [address] Dr. Ember Teague Ketones Ql (U) Negative Normal NEGATIVE [facility] Comment on above: Performed By: #### C VDTBH #### [facility] [address] [place] [address] Dr. Ember Teague LEUKOCYTES TRACE Abnormal NEGATIVE [facility] Comment on above: Performed By: #### C VDTBH #### [facility] [address] [place] [address] Dr. Ember Teague MUCOUS NONE SEEN Normal NONE SEEN [facility] Comment on above: Performed By: #### C VDTBH #### [facility] [address] [place] [address] Dr. Ember Teague Nitrite Ql (U) Negative Normal NEGATIVE [facility] Comment on above: Performed By: #### C VDTBH #### [facility] [address] [place] [address] Dr. Ember Teague pH (U) 5.0 [pH] Normal 5-9 [facility] Comment on above: Performed By: #### C VDTBH #### [facility] [address] [place] [address] Dr. Ember Teague RBC NONE SEEN Abnormal 0-2 [facility] Comment on above: Performed By: #### C VDTBH #### [facility] [address] [place] [address] Dr. Ember Teague SPEC GRAVITY 1.015 Normal 1.005-<=1.025 [facility] Comment on above: Performed By: #### C VDTBH #### [facility] [address] [place] [address] Dr. Ember Teague UA PROTEIN TRACE Normal NEGATIVE/ TRACE [facility] Comment on above: Performed By: #### C VDTBH #### [facility] [address] [place] [address] Dr. Ember Teague Urobilinogen Qn (U) 0.2 {Esau'U}/dL Normal 0.2 - 1. 0 [facility] Comment on above: Performed By: #### C VDTBH #### [facility] [address] [address] [address] Ember Teague WBC 0-2 Abnormal NONE SEEN [facility] Comment on above: Performed By: #### C VDTBH #### [facility] [address] [place] [address] Dr. Ember Teague URIC ACID SERUMon 05-02-2022 Urate [Mass/Vol] 4.4 mg/dL Normal 2.6-6.0 [facility] Comment on above: Performed By: #### C BC #### [facility] [address] [place] [address] Dr. Ember Teague URINE T PROTEIN CREAT RATIOo n 05-02-2022 Protein (U) [Mass/Vol] 33.7 mg/dL Critically high <=12.0 [facility] Comment on above: Performed By: #### C VDTBH #### [facility] [address] [place] [address] Dr. Ember Teague UR PROT CREAT RAT 0.69 Normal [facility] Comment on above: Performed By: #### C VDTBH #### [facility] [address] [place] [address] Dr. Ember Teague URINE CREAT 48.93 mg/dL Normal 20.00-300.00 [facility] Comment on above: Performed By: #### C VDTBH #### [facility] [address] [place] [address] Dr. Ember Teague Vital Signs Date Time Vital Sign Value Performing Clinician Facility 08-27-2023 09:40-0500 Body height 168.91 cm [facility] Other [employer] [facility] Other 08-27-2023 09:40-0500 Body mass index (BMI) [Ratio] 30.2 kg/m2 [facility] Other [facility] Other 08-27-2023 09:40-0500 Body temperature 96.7 [degF] Aziz Bakhous Other [facility] Other 08-27-2023 09:40-0500 Body weight 86.18 kg Mary Anne Mensahs Other [facility] Other 08-27-2023 09:40-0500 Diastolic blood pressure 72 mm[Hg] Azduc Mensahs Other [facility] Other 08-27-2023 09:40-0500 Respiratory rate 18 /min Mary Anne Mensahs Other [facility] Other 08-27-2023 09:40-0500 SaO2% (BldA) [Mass fraction] 98 % Mary Anne Mensahs Other [facility] Other 08-27-2023 09:40-0500 Systolic blood pressure 153 mm[Hg] Mary Anne Mensahs Other [facility] Other 08-15-2023 10:20-0500 Body height 168.91 cm Ron Doreen Other [facility] Other 08-15-2023 10:20-0500 Body mass index (BMI) [Ratio] 30.2 kg/m2 Ron Doreen Other [facility] Other 08-15-2023 10:20-0500 Body temperature 97.1 [degF] Ron Doreen Other [facility] Other 08-15-2023 10:20-0500 Body weight 86.18 kg Ron Doreen Other [facility] Other 08-15-2023 10:20-0500 Diastolic blood pressure 79 mm[Hg] Ron Doreen Other [facility] Other 08-15-2023 10:20-0500 Respiratory rate 18 /min Ron Doreen Other [facility] Other 08-15-2023 10:20-0500 SaO2% (BldA) [Mass fraction] 98 % Ron Doreen Other [facility] Other 08-15-2023 10:20-0500 Systolic blood pressure 164 mm[Hg] Ron Doreen Other [facility] Other 08-13-2023 15:40-0500 Body height 168.91 cm Ron Doreen Other [facility] Other 08-13-2023 15:40-0500 Body mass index (BMI) [Ratio] 30.24 kg/m2 Ron Doreen Other [facility] Other 08-13-2023 15:40-0500 Body temperature 97.2 [degF] Ron Doreen Other [facility] Other 08-13-2023 15:40-0500 Body weight 86.27 kg Ron Doreen Other [facility] Other 08-13-2023 15:40-0500 Diastolic blood pressure 79 mm[Hg] Ron Doreen Other [facility] Other 08-13-2023 15:40-0500 Respiratory rate 18 /min Ron Doreen Other [facility] Other 08-13-2023 15:40-0500 SaO2% (BldA) [Mass fraction] 98 % Ron Doreen Other [facility] Other 08-13-2023 15:40-0500 Systolic blood pressure 186 mm[Hg] Ron Doreen Other [facility] Other 08-01-2023 13:00-0400 Body height 168.91 cm Ron Doreen Other [facility] Other 08-01-2023 13:00-0400 Body mass index (BMI) [Ratio] 30.55 kg/m2 Ron Doreen Other [facility] Other 08-01-2023 13:00-0400 Body temperature 97.8 [degF] Ron Doreen Other [facility] Other 08-01-2023 13:00-0400 Body weight 87.18 kg Ron Doreen Other [facility] Other 08-01-2023 13:00-0400 Diastolic blood pressure 72 mm[Hg] Ron Doreen Other [facility] Other 08-01-2023 13:00-0400 Respiratory rate 18 /min Ron Doreen Other [facility] Other 08-01-2023 13:00-0400 SaO2% (BldA) [Mass fraction] 98 % Ron Doreen Other [facility] Other 08-01-2023 13:00-0400 Systolic blood pressure 160 mm[Hg] Ron Doreen Other [facility] Other 06-24-2023 11:40-0400 Body height 168.91 cm Ron Doreen Other [facility] Other 06-24-2023 11:40-0400 Body mass index (BMI) [Ratio] 29.89 kg/m2 Ron Doreen Other [facility] Other 06-24-2023 11:40-0400 Body temperature 97.3 [degF] Ron Doreen Other [facility] Other 06-24-2023 11:40-0400 Body weight 85.28 kg Ron Doreen Other [facility] Other 06-24-2023 11:40-0400 Diastolic blood pressure 75 mm[Hg] Ron Doreen Other [facility] Other 06-24-2023 11:40-0400 Respiratory rate 18 /min Ron Doreen Other [facility] Other 06-24-2023 11:40-0400 SaO2% (BldA) [Mass fraction] 99 % Ron Doreen Other [facility] Other 06-24-2023 11:40-0400 Systolic blood pressure 129 mm[Hg] Ron Doreen Other [facility] Other 06-06-2023 15:20-0400 Body height 168.91 cm Ron Doreen Other [facility] Other 06-06-2023 15:20-0400 Body mass index (BMI) [Ratio] 29.92 kg/m2 Ron Doreen Other [facility] Other 06-06-2023 15:20-0400 Body temperature 96.5 [degF] Ron Doreen Other [facility] Other 06-06-2023 15:20-0400 Body weight 85.37 kg Ron Doreen Other [facility] Other 06-06-2023 15:20-0400 Diastolic blood pressure 49 mm[Hg] Ron Doreen Other [facility] Other 06-06-2023 15:20-0400 Respiratory rate 18 /min Ron Doreen Other [facility] Other 06-06-2023 15:20-0400 SaO2% (BldA) [Mass fraction] 99 % Ron Doreen Other [facility] Other 06-06-2023 15:20-0400 Systolic blood pressure 128 mm[Hg] Ron Doreen Other [facility] Other 04-30-2023 11:40-0400 Body height 168.91 cm Ron Doreen Other [facility] Other 04-30-2023 11:40-0400 Body mass index (BMI) [Ratio] 30.52 kg/m2 Ron Doreen Other [facility] Other 04-30-2023 11:40-0400 Body temperature 96.9 [degF] Ron Doreen Other [facility] Other 04-30-2023 11:40-0400 Body weight 87.09 kg Ron Doreen Other [facility] Other 04-30-2023 11:40-0400 Diastolic blood pressure 80 mm[Hg] Ron Doreen Other [facility] Other 04-30-2023 11:40-0400 Respiratory rate 18 /min Ron Doreen Other [facility] Other 04-30-2023 11:40-0400 SaO2% (BldA) [Mass fraction] 98 % Ron Doreen Other [facility] Other 04-30-2023 11:40-0400 Systolic blood pressure 150 mm[Hg] Ron Doreen Other [facility] Other 04-06-2023 09:00-0400 Body height 168.91 cm Ron Doreen Other [facility] Other 04-06-2023 09:00-0400 Body mass index (BMI) [Ratio] 30.36 kg/m2 Ron Doreen Other [facility] Other 04-06-2023 09:00-0400 Body weight 86.64 kg Ron Doreen Other [facility] Other 04-06-2023 09:00-0400 Diastolic blood pressure 54 mm[Hg] Ron Doreen Other [facility] Other 04-06-2023 09:00-0400 Respiratory rate 18 /min Ron Doreen Other [facility] Other 04-06-2023 09:00-0400 SaO2% (BldA) [Mass fraction] 98 % Ron Doreen Other [facility] Other 04-06-2023 09:00-0400 Systolic blood pressure 144 mm[Hg] Ron Doreen Other [facility] Other 04-02-2023 14:40-0400 Body height 168.91 cm Ron Doreen Other [facility] Other 04-02-2023 14:40-0400 Body mass index (BMI) [Ratio] 30.55 kg/m2 Ron Doreen Other [facility] Other 04-02-2023 14:40-0400 Body temperature 97 [degF] Ron Doreen Other [facility] Other 04-02-2023 14:40-0400 Body weight 87.18 kg Ron Doreen Other [facility] Other 04-02-2023 14:40-0400 Diastolic blood pressure 76 mm[Hg] Ron Doreen Other [facility] Other 04-02-2023 14:40-0400 Respiratory rate 18 /min Ron Doreen Other [facility] Other 04-02-2023 14:40-0400 SaO2% (BldA) [Mass fraction] 98 % Ron Doreen Other [facility] Other 04-02-2023 14:40-0400 Systolic blood pressure 183 mm[Hg] Ron Doreen Other [facility] Other 03-07-2023 09:20-0400 Body height 168.91 cm Ron Doreen Other [facility] Other 03-07-2023 09:20-0400 Body mass index (BMI) [Ratio] 30.52 kg/m2 Ron Doreen Other [facility] Other 03-07-2023 09:20-0400 Body temperature 97.1 [degF] Ron Doreen Other [facility] Other 03-07-2023 09:20-0400 Body weight 87.09 kg Ron Doreen Other [facility] Other 03-07-2023 09:20-0400 Diastolic blood pressure 72 mm[Hg] Ron Doreen Other [facility] Other 03-07-2023 09:20-0400 Respiratory rate 18 /min Ron Doreen Other [facility] Other 03-07-2023 09:20-0400 SaO2% (BldA) [Mass fraction] 97 % Ron Doreen Other [facility] Other 03-07-2023 09:20-0400 Systolic blood pressure 130 mm[Hg] Ron Doreen Other [facility] Other 12-20-2022 13:20-0400 Body height 168.91 cm Ron Doreen Other [facility] Other 12-20-2022 13:20-0400 Body mass index (BMI) [Ratio] 30.68 kg/m2 Ron Doreen Other [facility] Other 12-20-2022 13:20-0400 Body temperature 97.1 [degF] Ron Doreen Other [facility] Other 12-20-2022 13:20-0400 Body weight 87.54 kg Ron Doreen Other [facility] Other 12-20-2022 13:20-0400 Diastolic blood pressure 72 mm[Hg] Ron Doreen Other [facility] Other 12-20-2022 13:20-0400 Respiratory rate 18 /min Ron Doreen Other [facility] Other 12-20-2022 13:20-0400 SaO2% (BldA) [Mass fraction] 99 % Ron Doreen Other [facility] Other 12-20-2022 13:20-0400 Systolic blood pressure 139 mm[Hg] Ron Doreen Other [facility] Other 11-05-2022 14:00-0500 Body height 168.91 cm Ron Doreen Other [facility] Other 11-05-2022 14:00-0500 Body mass index (BMI) [Ratio] 30.59 kg/m2 Ron Doreen Other [facility] Other 11-05-2022 14:00-0500 Body temperature 96.8 [degF] Ron Doreen Other [facility] Other 11-05-2022 14:00-0500 Body weight 87.27 kg Ron Doreen Other [facility] Other 11-05-2022 14:00-0500 Diastolic blood pressure 72 mm[Hg] Ron Doreen Other [facility] Other 11-05-2022 14:00-0500 Respiratory rate 18 /min Ron Doreen Other [facility] Other 11-05-2022 14:00-0500 SaO2% (BldA) [Mass fraction] 98 % Ron Doreen Other [facility] Other 11-05-2022 14:00-0500 Systolic blood pressure 157 mm[Hg] Ron Doreen Other [facility] Other 09-27-2022 16:00-0500 Body height 168.91 cm Jana Monson Other [facility] Other 09-27-2022 16:00-0500 Body mass index (BMI) [Ratio] 30.55 kg/m2 Jana Monson Other [facility] Other 09-27-2022 16:00-0500 Body temperature 96.8 [degF] Jana Monson Other [facility] Other 09-27-2022 16:00-0500 Body weight 87.18 kg Jana Monson Other [facility] Other 09-27-2022 16:00-0500 Diastolic blood pressure 73 mm[Hg] Jana Monson Other [facility] Other 09-27-2022 16:00-0500 Respiratory rate 18 /min Jana Monson Other [facility] Other 09-27-2022 16:00-0500 SaO2% (BldA) [Mass fraction] 98 % Jana Monson Other [facility] Other 09-27-2022 16:00-0500 Systolic blood pressure 159 mm[Hg] Jana Monson Other [facility] Other 08-22-2022 12:00-0500 Body height 168.91 cm Ron Doreen Other [facility] Other 08-22-2022 12:00-0500 Body mass index (BMI) [Ratio] 30.65 kg/m2 Ron Doreen Other [facility] Other 08-22-2022 12:00-0500 Body temperature 96.9 [degF] Ron Doreen Other [facility] Other 08-22-2022 12:00-0500 Body weight 87.45 kg Ron Doreen Other [facility] Other 08-22-2022 12:00-0500 Diastolic blood pressure 75 mm[Hg] Ron Doreen Other [facility] Other 08-22-2022 12:00-0500 Respiratory rate 18 /min Ron Doreen Other [facility] Other 08-22-2022 12:00-0500 SaO2% (BldA) [Mass fraction] 96 % Ron Doreen Other [facility] Other 08-22-2022 12:00-0500 Systolic blood pressure 121 mm[Hg] Ron Doreen Other [facility] Other 05-08-2022 10:20-0400 Body height 168.91 cm Ron Doreen Other [facility] Other 05-08-2022 10:20-0400 Body mass index (BMI) [Ratio] 31.54 kg/m2 Ron Doreen Other [facility] Other 05-08-2022 10:20-0400 Body temperature 97.6 [degF] Ron Doreen Other [facility] Other 05-08-2022 10:20-0400 Body weight 89.99 kg Ron Doreen Other [facility] Other 05-08-2022 10:20-0400 Diastolic blood pressure 68 mm[Hg] Ron Doreen Other [facility] Other 05-08-2022 10:20-0400 Respiratory rate 18 /min Ron Doreen Other [facility] Other 05-08-2022 10:20-0400 SaO2% (BldA) [Mass fraction] 98 % Ron Doreen Other [facility] Other 05-08-2022 10:20-0400 Systolic blood pressure 131 mm[Hg] Ron Doreen Other [facility] Other 01-18-2022 10:20-0400 Body height 168.91 cm Ron Doreen Other [facility] Other 01-18-2022 10:20-0400 Body mass index (BMI) [Ratio] 31 kg/m2 Ron Doreen Other [facility] Other 01-18-2022 10:20-0400 Body temperature 96.4 [degF] Ron Doreen Other [facility] Other 01-18-2022 10:20-0400 Body weight 88.45 kg Ron Doreen Other [facility] Other 01-18-2022 10:20-0400 Diastolic blood pressure 74 mm[Hg] Ron Doreen Other [facility] Other 01-18-2022 10:20-0400 Respiratory rate 18 /min Ron Doreen Other [facility] Other 01-18-2022 10:20-0400 SaO2% (BldA) [Mass fraction] 97 % Ron Doreen Other [facility] Other 01-18-2022 10:20-0400 Systolic blood pressure 170 mm[Hg] Ron Doreen Other [facility] Other Encounters Encounter Date Encounter Type Care Provider Facility Start: 09-09-2023 End: 09-09-2023 ambulatory Ron Doreen Other [facility] Start: 09-09-2023 Telephone encounter Ron Doreen [facility] Start: 08-27-2023 (INJECTION) INJECTION Aziz Bakhous [facility] Start: 08-27-2023 End: 08-27-2023 ambulatory Aziz Bakhous Other [facility] Start: 08-15-2023 (INJECTION) INJECTION Ron Doreen [facility] Start: 08-15-2023 End: 08-15-2023 ambulatory Ron Doreen Other [facility] Start: 08-13-2023 (INJECTION) INJECTION Ron Doreen [facility] Start: 08-13-2023 End: 08-13-2023 ambulatory Ron Doreen Other [facility] Start: 08-01-2023 End: 08-01-2023 ambulatory Ron Doreen Other [facility] Start: 08-01-2023 Office outpatient visit 15 minutes Ron Doreen [facility] Start: 06-24-2023 End: 06-24-2023 ambulatory Ron Doreen Other [facility] Start: 06-24-2023 Office outpatient visit 10 minutes Ron Doreen [facility] Start: 06-06-2023 End: 06-06-2023 ambulatory Ron Doreen Other [facility] Start: 06-06-2023 Office outpatient visit 15 minutes Ron Doreen [facility] Start: 04-30-2023 End: 04-30-2023 ambulatory Ron Doreen Other [facility] Start: 04-30-2023 Office outpatient visit 15 minutes Ron Doreen [facility] Start: 04-06-2023 (INJECTION) INJECTION Ron Doreen [facility] Start: 04-06-2023 End: 04-06-2023 ambulatory Ron Doreen Other [facility] Start: 04-06-2023 Telephone encounter Ron Doreen [facility] Start: 04-02-2023 End: 04-02-2023 ambulatory Orn Doreen Other [facility] Other Start: 04-02-2023 Office outpatient visit 15 minutes Ron Doreen [facility] Start: 04-02-2023 Telephone encounter Ron Odreen [facility] Start: 03-07-2023 End: 03-07-2023 ambulatory Ron Doreen Other [facility] Start: 03-07-2023 Office outpatient visit 15 minutes Ron Doreen [facility] Start: 01-22-2023 End: 01-23-2023 ambulatory RON DOREEN Facility:[facility] Start: 12-20-2022 End: 12-20-2022 ambulatory Ron Doreen Other [facility] Start: 12-20-2022 Office outpatient visit 15 minutes Ron Doreen [facility] Start: 12-17-2022 End: 12-18-[address] DHRUV GUTIERRES . Facility:[facility] Start: 12-10-2022 End: 12-11-2022 ambulatory RON DOREEN Facility:[facility] Start: 11-20-2022 End: 11-21-[address] BENI APARICIO Facility:[facility] Start: 11-05-2022 End: 11-05-2022 ambulatory Ron Doreen Other [facility] Start: 11-05-2022 Office outpatient visit 15 minutes Ron Doreen [facility] Start: 10-29-2022 End: 10-30-[address] JANA MONSON Facility:[facility] Start: 10-24-2022 End: 10-24-[address] LILLIAN ACOSTA . Facility:[facility] Start: 10-24-2022 End: 10-25-[address] DHRUV GUTIERRES . Facility:[facility] Start: 09-27-2022 End: 09-27-2022 ambulatory Jana Monson Other [facility] Other Start: 09-27-2022 Office outpatient visit 15 minutes Jana Elmiller [facility] Start: 09-18-2022 End: 09-19-2022 ambulatory RON DOREEN Facility:[facility] Start: 09-11-2022 End: 09-11-[address] DHRUV GUTIERRES . Facility:[facility] Start: 08-22-2022 End: 08-22-2022 ambulatory Ron Doreen Other [facility] Other Start: 08-22-2022 Office outpatient visit 15 minutes Ron Doreen [facility] Start: 08-13-2022 End: 08-14-2022 ambulatory RON DOREEN Facility:[facility] Start: 06-25-2022 End: 06-26-[address] DHRUV GUTIERRES . Facility:[facility] Start: 06-18-2022 End: 06-18-[address] DHRUV GUTIERRES . Facility:[facility] Start: 06-01-2022 End: 06-02-[address] YANET HUERTA Facility:[facility] Start: 05-28-2022 End: 05-28-2022 ambulatory Ron Doreen Other [facility] Other Start: 05-28-2022 Telephone encounter Ron Doreen [facility] Start: 05-21-2022 End: 05-22-[address] DHRUV GUTIERRES . Facility:[facility] Start: 05-16-2022 End: 05-16-2022 ambulatory Ron Doreen Other [facility] Other Start: 05-16-2022 Telephone encounter Ron Doreen [facility] Start: 05-10-2022 End: 05-10-2022 ambulatory Ron Doreen Other [facility] Other Start: 05-10-2022 Telephone encounter Ron Doreen [facility] Start: 05-08-2022 End: 05-08-2022 ambulatory Ron Doreen Other [facility] Other Start: 05-08-2022 Office outpatient visit 25 minutes Ron Doreen [facility] Start: 05-02-2022 End: 05-03-2022 ambulatory RON DOREEN Facility: Start: 04-24-2022 End: 04-24-2022 ambulatory Aziz Bakhous Other [facility] Other Start: 04-24-2022 Telephone encounter Aziz Bakhous [facility] Start: 01-18-2022 End: 01-18-2022 ambulatory Ron Doreen Other [facility] Other Start: 01-18-2022 Office outpatient visit 25 minutes Ron Doreen [facility] [place] Start: 05-21-2017 End: 05-22-2017 Ambulatory DEFAULT PHYSICIAN Facility:[facility] Payers Date Payer Category Payer Medicare [id number] 1945 Unknown [id number] 2.16.84 [id number] 1945 Unknown [id number] 2.16.84 0.1.250055.3.579.2.593 1944 Unknown [id number] 2.16.84 0.1.851487.3.579.2.593 1944 Unknown [id number] 2.16.84 0.1.528093.3.579.2.593 1944 Unknown [id number] 2.16.84 0.1.004410.3.579.2.593 1944 Unknown [id number] 2.16.84 0.1.261547.3.579.2.593 1944 Unknown [id number] 2.16.84 0.1.486172.3.579.2.593 1944 Unknown [id number] 2.16.84 0.1.015679.3.579.2.593 1944 Unknown [id number] 2.16.84 0.1.432342.3.579.2.593 1944 Unknown [id number] 2.16.84 0.1.367236.3.579.2.593 1944 Unknown [id number] 2.16.84 0.1.806406.3.579.2.593 1944 Unknown [id number] 2.16.84 0.1.798244.3.579.2.593 1944 Unknown [id number] 2.16.84 0.1.253863.3.579.2.593 1944 Unknown [id number] 2.16.84 0.1.482760.3.579.2.593 1944 Unknown [id number] 2.16.84 0.1.511343.3.579.2.593 1944 Unknown [id number] 2.16.84 0.1.130076.3.579.2.593 Unknown Social History Date Type Detail Facility Unknown if ever smoked [facility] Other Sex Assigned At Sex Assigned At Bir th [facility] Other Clinical Notes 01-18-2022 to 09-09-2023 Note [...] 4, GFR 15-29 ml/min (ICD-10 - N18.4) [facility] Other 11-21-2023 Evaluation note* Encounter Date Diagnosis Assessment Notes Treatment Notes Treatment Clinical Notes Aug, Anemia of renal disease (ICD-10 - D63.1) Aug, CKD (chronic kidney disease) stage 4, GFR 15-29 ml/min (ICD-10 - N18.4) [facility] Other 11-09-2023 Evaluation note* Encounter Date Diagnosis [...] of kidney mass hydronephrosis or kidney stones. [facility] Other 10-26-2023 Evaluation note* Encounter Date Diagnosis [...] potassium improved with dietary restriction and Lasix. [facility] Other 09-18-2023 Evaluation note* Encounter Date Diagnosis [...] suitable candidate for Farxiga, Jardiance or finerenone. Jun, Secondary hyperparathyroidism (ICD-10 - N25.81) MBD parameters including PTH, calcium, Vit D and phosphorus are within the goal. Continue Vit D 5000 units daily Jun, Hyperkalemia (ICD-10 - E87.5) She had hyperkalemia likely due to the CKD and lisinopril. Her potassium improved with dietary restriction and Lasix. [facility] Other 08-31-2023 Evaluation note* Encounter Date Diagnosis [...] potassium improved with dietary restriction and Lasix. [facility] Other 07-25-2023 Evaluation note* Encounter Date Diagnosis [...] to normal with dietary restriction and Lasix. [facility] Other 07-01-2023 Evaluation note* Encounter Date Diagnosis Assessment Notes Treatment Notes Treatment Clinical Notes Apr, CKD (chronic kidney disease) stage 4, GFR 15-29 ml/min (ICD-10 - N18.4) Apr, Anemia of renal disease (ICD-10 - D63.1) [facility] Other 06-27-2023 Evaluation note* Encounter Date Diagnosis [...] to normal with dietary restriction and Lasix. [facility] Other 06-01-2023 Evaluation note* Encounter Date Diagnosis [...] potassium diet and provide information about it. [facility] Other 03-16-2023 Evaluation note* Encounter Date Diagnosis [...] to Continue Vit D 5000 units daily [facility] Other 01-30-2023 Evaluation note* Encounter Date Diagnosis [...] to Continue Vit D 5000 units daily [facility] Other 12-22-2022 Evaluation note* Encounter Date Diagnosis [...] to Continue Vit D 5000 units daily [facility] Other 11-16-2022 Evaluation note* Encounter Date Diagnosis [...] to Continue Vit D 5000 units daily [facility] Other 08-04-2022 Evaluation note* Encounter Date Diagnosis Assessment Notes Treatment Notes Treatment Clinical Notes May, Hypertensive chronic kidney disease with stage 1 through stage 4 chronic kidney disease, or unspecified chronic kidney disease (ICD-10 - I12.9) [facility] Other 08-02-2022 Evaluation note* Encounter Date Diagnosis [...] to Continue Vit D 5000 units daily [facility] Other 07-19-2022 Evaluation note* Encounter Date Diagnosis Assessment Notes Treatment Notes Treatment Clinical Notes Apr, Hypertensive chronic kidney disease with stage 1 through stage 4 chronic kidney disease, or unspecified chronic kidney disease (ICD-10 - I12.9) [facility] Other [id number] Evaluation note* Encounter Date Diagnosis Assessment Notes [...] prescribed low-dose of lisinopril 10 mg daily. Jan, Secondary hyperparathyroidism (ICD-10 - N25.81) MBD parameters including PTH, calcium are phosphorus are within the goal but Vit D is low. I have advised her to stop Calcium and advised her to take Vit D 1000 units daily [place] [facility] Other Evaluation noteNo InformationNort [facility] Other History general Narrative - Reported* Type [...] History SEE ABOVE Hospitalization History COVID 09/2020 [facility] Other history general Narrative - Reported* Type Description Date [...] History SEE ABOVE Hospitalization History COVID 09/2020 [facility] Other history general Narrative - Reported* Type Description Date [...] History SEE ABOVE Hospitalization History COVID 09/2020 [facility] Other Summary Purpose Family History No Family History Records FoundNo Family History Records Found Advance Directives No Advanced Directives Records FoundNo Advanced Directives Records Found Additional Source Comments INFORMATION SOURCE (unrecogn ized section and content) DATE CREATED AUTHOR 04/02/2018 [facility] DATE CREATED AUTHOR AUTHOR'S ORGANIZ ATION 01/27/2023 [facility] REASON FOR VISIT (unrecogniz ed [...] BE BASED ON THE PRIMARY CLINICAL RECORDS. [facility]. provides no warranty or guarantee of the accuracy or completeness of information in this document.
[2023-10-08 06:49] LABS: Hematocrit 30.8 % (36.0-48.0); Hemoglobin 9.9 g/dL (12.0-16.0); Mean Corpuscular HGB Conc 32.1 g/dL (29.9-35.2); Mean Corpuscular Hemoglobin 30.3 pg (26.7-34.0); Mean Corpuscular Volume 94.2 fL (81.0-99.0); Platelet Count 196 10^3/uL (150-450); Red Blood Count 3.27 10^6/uL (4.20-5.40); Red Cell Distribution Width 15.8 % (11.0-15.0); White Blood Count 7.2 10^3/uL (4.0-11.0)
[2023-10-08 08:06] LABS: Albumin Level 3.4 g/dL (3.4-5.0); Anion Gap 17.4; BUN Creatinine Ratio 29.8; Calcium 9.8 mg/dL (8.5-10.1); Carbon Dioxide 21.9 mmol/L (21.0-32.0); Chloride 103 mmol/L (98-107); Estimated GFR (African America 22 (>=60); Estimated GFR (Non-African Ame 18 (>=60); Glucose 188 mg/dL (74-106); Phosphorus 4.5 mg/dL (2.6-4.7); Potassium 5.3 mmol/L (3.5-5.1); Sodium 137 mmol/L (136-145)
[2023-10-08 08:25] LABS: Percent Iron Saturation 58.8 %
== END 2023-10-08 06:31 | disposition home or self-care (01) ==
LOC: LAB 06:30
PROVIDERS: PCP Family Medicine; Visit Provider Internal Medicine
DX: N18.4 Chronic kidney disease, stage 4 (severe) (principal); D63.1 Anemia in chronic kidney disease
CPT/HCPCS: 36415; 80069; 82728; 83540; 83550; 85027

== ENCOUNTER 2023-10-29 07:16 | Outpatient (OUT) | payer MEDICARE, SELFPAY ==
--- OUTSIDE RECORDS SUMMARY | 2023-10-29 07:20 | XMS_ITS | CCD ---
Author Name Unknown Address [address] [place] [address] Organization [facility] Care Team Providers Care Media Production Support Manager Name Role Phone PHYSICIAN, DEFAULT Unavailable Unavailable PHYSICIAN, DEFAULT Unavailable Unavailable Doreen, Ron Unavailable Óscar Ackermanduc Unavailable Iona Varinderreinaldo Unavailable BHAVIK ., DR BARTLETT Consulting Unavailable HOY ., [...] DOREEN, RON Consulting Unavailable HOY ., DR BRATLETT Primary Care Unavailable DOREEN, RON Attending Unavailable DOREEN, RON Admitting Unavailable DOREEN, RON Consulting Unavailable HOY ., DR BARTLETT Primary Care Unavailable DOREEN, RON Attending Unavailable DOREEN, RON Admitting Unavailable HOY ., DR BARTLETT Consulting Unavailable HOY ., DR BARTLETT Primary Care Unavailable HOY ., DR BARTLETT Attending Unavailable HOY ., DR BARTLETT Admitting Unavailable SUZANNA, ANGELINA Consulting Unavailable ELASHI, DR SKINNER Consulting [...] RON Attending Unavailable DOREEN, RON Admitting Unavailable GA CRESPO Attending Unavailable Allergies Allergy Classification Reported Allergen(s) Allergy Type Date of Onset Reaction(s) Facility (20 sources) amLODIPine Drug Allergy Unknown [facility] Other (18 sources) Amoxicillin / Clavulanate Drug Allergy Unknown [facility] Other (20 sources) Contrast media Propensity to adverse reactions Unknown [facility] Other (2 sources) Doxazosin; Translations: [doxazosin] Drug Allergy Unknown [facility] Other (20 sources) Sulfamethoxazole / Trimethoprim Drug Allergy Unknown [facility] Other (20 sources) Doxazosin Drug Allergy Unknown [facility] Other (9 sources) Amoxicillin / Clavulanate; Translations: [Augmentin] Drug Allergy 11-16-19 16 Unknown [facility] (1 source) amLODIPine Drug Allergy 04-25-20 14 [facility] (1 source) Sulfamethoxazole / Trimethoprim Drug Allergy 03-09-20 13 [facility] Medications Current Medications Medication Drug Class(es) Dates Sig (Normalized) Sig (Original) acetaminophen 500 mg oral tablet (20 sources) take 2 tablets by mouth every [...] 1 tablet Orally every 12 hrs Active docusate sodium 50 mg / sennosides, long-term 8.6 mg oral tablet (3 sources) take 1 tablet by mouth every twelve hours Sennosides-Docusate Sodium 8.6-50 MG 1 tablet in the evening as needed Orally every 12 hours Active epoetin johnna-epbx 26152 UNT/ML Injectable Solution [Retacrit] (14 sources) Retacrit 60773 U NIT/ML as directed Injection Active ferrous [...] day(s) Active furosemide 20 mg oral tablet (19 sources) Loop Diuretic take 1 tablet by mouth once daily Furosemide 20 mg TAKE 1 TABLET BY MOUTH ONCE DAILY for 90 Active 3 ml insulin aspart, human 100 unt/ml pen injector (20 sources) Insulin Analog NovoLOG FlexPen 100 UNIT/ML Use as Directed Subcutaneous 10 units in am, 15 units at noon, 20 units at supper. Active 3 ml insulin detemir 100 unt /ml pen injector (17 sources) Insulin Analog Levemir FlexTouc h 100 UNIT/ML As Directed Subcutaneous 50 units twice a day Active Levemir FlexTouch 100 UNIT/M L (9 sources) Levemir FlexTouc h 100 UNIT/ML As Directed Subcutaneous 50 units twice a day Active levothyroxine sodium 0.125 mg oral tablet (20 sources) l-Thyroxine take 1 tablet by mouth once daily in the morning Synthroid 125 MCG 1 tablet on an empty stomach in the morning Orally Once a day Active take 1 tablet by enzo once daily in the morning Synthroid 125 MCG 1 tablet on an empty stomach in the morning Orally Once a day Active liothyronine sodium 0.005 mg oral tablet (20 sources) l-Triiodothyronine take 2 tablets by mouth every twenty-four hours Liothyronine Sodium 5 MCG 2 tablets on an empty stomach Orally Once a day Active take [address] tablets [address] [facility] every twenty-four hours Liothyronine Sodium 5 MCG 2 tablets on a n empty stomach Orally Once a day Active take [address] [facility] every twenty-four hours lisinopril 10 mg oral tablet (20 sources) Angiotensin Converting Enzyme Inhibitor Start: 01-18-2022 take 1 tablet by mouth every twenty-four hours Lisinopril 10 MG 1 tablet Orally Once a day for 90 day(s) Jan, Active take 1 tablet by enzo every twenty-four hours Lisinopril 20 MG 1 tablet Orally Once a day for 90 days Active magnesium oxide 400 mg oral tablet (20 sources) take 1 tablet by enzo every eight hours Magnesium Oxide 400 MG [...] 1 tablet Orally Once a day Active retacrit 06409 unit/ml solution (3 sources) Retacrit 29022 UNIT/ML as directed Injection Active Sennosides-Docusate Sodium 8 .6-50 MG (20 sources) take 1 tablet by [...] Sig (Original) RETACRIT INJECTION (20 sources) Start: 10-15-2023 RETACRIT INJECTION Oct, 1000 mL Start: 08-27-2023 RETACRIT INJEC TION Aug, 1000 mL Start: 08-15-2023 RETACRIT INJEC TION Aug, 1000 mL Start: 08-01-2023 RETACRIT INJEC TION Jul, 1000 mL Start: 07-15-2023 RETACRIT INJEC TION Jul, 1000 mL Start: 06-24-2023 RETACRIT INJEC TION Jun, 1000 mL Start: 06-06-2023 RETACRIT INJEC TION May, 1000 mL Start: 04-30-2023 RETACRIT INJEC TION Apr, 1000 mL Start: 04-06-2023 RETACRIT INJEC TION Apr, 1000 units Start: 04-06-2023 RETACRIT INJEC TION Apr, 1000 [...] INJEC TION Aug, 1000 mL Start: 07-02-2022 RETACRIT INJEC TION Jun, 1000 units Start: 07-02-2022 Start: 07-02-2022 RETACRIT INJEC TION [...] kidney disease] Chronic Deficiency and other anemia (18 sources) Anemia in chronic kidney disease; Translations: [ANEMIA IN CHRONIC KIDNEY DISEASE] Onset: 2 Resolved: 2 Chronic Deficiency and other anemia (20 sources) Iron deficiency anemia; Translations: [Iron deficiency anemia, unspecified] Episodic Diabetes mellitus with complications (20 sources) Type 2 diabetes mellitus; Translations: [Type 2 diabetes mellitus with diabetic chronic kidney disease] Onset: 2 Resolved: 2 Chronic Essential hypertension (20 sources) Hypertensive disorder; Translations: [Essential (primary) hypertension] Onset: 2 Chronic Fluid and electrolyte disorders (7 sources) Hyperkalemia Episodic Gout and other crystal [...] Chronic Other diseases of kidney and ureters (14 sources) Secondary hyperparathyroidism of renal origin; Translations: [...] [Volume fraction] 28.8 % Critically low 36.0-48.0 [facility] Comment on above: Performed By: #### H H #### [facility] [address] [place] [address] Dr. Ember Teague Hemoglobin (Bld) [Mass/Vol] 9.6 g/dL Critically low 12.0-16.0 [facility] Comment on above: Performed By: #### H H #### [facility] [address] [place] [address] Dr. Ember Teague MCH (RBC) [Entitic mass] 30.7 pg Normal 26.7-34.0 [facility] Comment on above: Performed By: #### H H #### [facility] [address] [place] [address] Dr. Ember Teague MCHC (RBC) [Mass/Vol] 33.3 g/dL Normal 29.9-35.2 [facility] Comment on above: Performed By: #### H H #### [facility] [address] [place] [address] Dr. Ember Teague MCV (RBC) [Entitic vol] 92.0 fL Normal 81.0-99.0 [facility] Comment on above: Performed By: #### H H #### [facility] [address] [place] [address] Dr. Ember Teague PLT 214 103/ul Normal 150-450 [facility] Comment on above: Performed By: #### H H #### [facility] [address] [place] [address] Dr. Ember Teague RBC 3.13 106/ul Critically low 4.20-5.40 [facility] Comment on above: Performed By: #### H H #### [facility] [address] [place] [address] Dr. Ember Teague WBC 7.4 103/ul Normal 4.0-11.0 [facility] Comment on above: Performed By: #### H H #### [facility] [address] [place] [address] Dr. Ember Teague MAGNESIUMon 01-22-2023 Magnesium [Mass/Vol] 1.8 mg/dL Normal 1.8-2.4 [facility] Comment on above: Performed By: #### M G, RENAL #### [facility] [address] [place] [address] Dr. Ember Teague RENAL FUNCTION PANELon 01-22 Albumin [Mass/Vol] 3.6 g/dL Normal 3.4-5.0 [facility] Comment on above: Performed By: #### M G, RENAL #### [facility] [address] [address] [address] Ember Teague Calcium [Mass/Vol] 9.7 mg/dL Normal 8.5-10.1 [facility] Comment on above: Performed By: #### M G, RENAL #### [facility] [address] [address] [address] Ember Teague Chloride [Moles/Vol] 105 mmol/L Normal 98-107 [facility] Comment on above: Performed By: #### M G, RENAL #### [facility] [address] [place] [address] Dr. Ember Teague CO2 [Moles/Vol] 22.6 mmol/L Normal 21.0-32.0 [facility] Comment on above: Performed By: #### M Girish, RENAL #### [facility] [address] [address] [address] Ember Teague Creatinine [Mass/Vol] 2.18 mg/dL Critically high 0.55-1.02 [facility] Comment on above: Performed By: #### Lico Stout, RENAL #### [facility] [address] [place] [address] Dr. Ember Teague EGFR-AF COSTA RICAN 26 mL/min/1.73m2 Critically low >=60 [facility] Comment on above: Performed By: #### Lico Stout, RENAL #### [facility] [address] [address] [address] Ember Teague EGFR-NON AF COSTA RICAN 22 mL/min/1.73m2 Critically low >=60 [facility] Comment on above: Performed By: #### M G, RENAL #### [facility] [address] [address] [address] Ember Teague Glucose [Mass/Vol] 134 mg/dL Critically high 74-106 [facility] Comment on above: Performed By: #### M G, RENAL #### [facility] [address] [address] [address] Ember Teague Phosphate [Mass/Vol] 4.6 mg/dL Normal 2.6-4.7 [facility] Comment on above: Performed By: #### M G, RENAL #### [facility] [address] [address] [address] Ember Teague Potassium [Moles/Vol] 5.1 mmol/L Normal 3.5-5.1 [facility] Comment on above: Performed By: #### M G, RENAL #### [facility] [address] [address] [address] Ember Teague Sodium [Moles/Vol] 138 mmol/L Normal 136-145 [facility] Comment on above: Performed By: #### M G, RENAL #### [facility] [address] [address] [address] Ember Teague Urea nitrogen [Mass/Vol] 61.0 mg/dL Critically high 7.0-18.0 [facility] Comment on above: Performed By: #### M G, RENAL #### [facility] [address] [address] [address] Ember Teague MG MAMM SCREEN 3D MAY CADon 12-17-2022 MG MAMM SCREEN 3D MYA CAD Patient: KYLAH BERGER Exam Date: 12/17/2022 : 1945 Gender:F Ordering : DR DHRUV GUTIERRES . Admission #: [id number] Family : Order #: [id number] CLICK HERE TO VIEW EXAM RADIOLOGY REPORT [...] lung cancer at age 61. LOCATION: [facility] BREAST COMPOSITION: Scattered areas fibroglandular density. FINDINGS: [...] MD on 12/17/2022 at 11:59 Normal [facility] FERRITINon 12-10-2022 Ferritin [Mass/Vol] 681.0 ng/mL Critically high 8.0-252.0 [facility] Comment on above: Performed By: #### P THINT #### [facility] [address] [place] [address] Dr. Ember Teague HEMOGRAM AND PLATELon 2022 Hematocrit (Bld) [Volume fraction] 27.1 % Critically low 36.0-48.0 [facility] Comment on above: Performed By: #### C VDTBH #### [facility] [address] [place] [address] Dr. Ember Teague Hemoglobin (Bld) [Mass/Vol] 9.7 g/dL Critically low 12.0-16.0 [facility] Comment on above: Performed By: #### C VDTBH #### [facility] [address] [place] [address] Dr. Ember Teague MCH (RBC) [Entitic mass] 31.4 pg Normal 26.7-34.0 [facility] Comment on above: Performed By: #### C VDTBH #### [facility] [address] [place] [address] Dr. Ember Teague MCHC (RBC) [Mass/Vol] 35.8 g/dL Critically high 29.9-35.2 [facility] Comment on above: Performed By: #### C VDTBH #### [facility] [address] [place] [address] Dr. Ember Teague MCV (RBC) [Entitic vol] 87.7 fL Normal 81.0-99.0 [facility] Comment on above: Performed By: #### C VDTBH #### [facility] [address] [address] [address] Ember Teague PLT 218 103/ul Normal 150-450 [facility] Comment on above: Performed By: #### C VDTBH #### [facility] [address] [place], [place] [address] Dr. Ember Teague RBC 3.09 106/ul Critically low 4.20-5.40 [facility] Comment on above: Performed By: #### C VDTBH #### [facility] [address] [address] [address] Ember Teague WBC 6.6 103/ul Normal 4.0-11.0 [facility] Comment on above: Performed By: #### C VDTBH #### [facility] [address] [place] [address] Dr. Ember Teague IRON AND TIBCon 12-10-2022 % SATURATION 30.2 % Normal [facility] Comment on above: Performed By: #### P THINT #### [facility] [address] [address] [address] Ember Teague Iron [Mass/Vol] 84.0 ug/dL Normal 50.0-170.0 [facility] Comment on above: Performed By: #### P THINT #### [facility] [address] [place] [address] Dr. Ember Teague TIBC DIRECT 278.0 ug/dL Normal 250.0-450.0 [facility] Comment on above: Performed By: #### P THINT #### [facility] [address] [address] [address] Ember Teague XR FOOT MAY MIN [...] BENI APARICIO Date: 2022-11-20 14:03 Normal [facility] HEMOGRAM AND PLATELon 2022 Hematocrit (Bld) [Volume fraction] 27.7 % Critically low 36.0-48.0 [facility] Comment on above: Performed By: #### R ENAL #### [facility] [address] [place] [address] Dr. Ember Teague Hemoglobin (Bld) [Mass/Vol] 10.0 g/dL Critically low 12.0-16.0 [facility] Comment on above: Performed By: #### R ENAL #### [facility] [address] [place] [address] Dr. Ember Teague MCH (RBC) [Entitic mass] 31.6 pg Normal 26.7-34.0 [facility] Comment on above: Performed By: #### R ENAL #### [facility] [address] [place] [address] Dr. Ember Teague MCHC (RBC) [Mass/Vol] 36.1 g/dL Critically high 29.9-35.2 [facility] Comment on above: Performed By: #### R ENAL #### [facility] [address] [place] [address] Dr. Ember Teague MCV (RBC) [Entitic vol] 87.7 fL Normal 81.0-99.0 [facility] Comment on above: Performed By: #### R ENAL #### [facility] [address] [place] [address] Dr. Ember Teague PLT 182 103/ul Normal 150-450 [facility] Comment on above: Performed By: #### R ENAL #### [facility] [address] [place] [address] Dr. Ember Teague RBC 3.16 106/ul Critically low 4.20-5.40 [facility] Comment on above: Performed By: #### R ENAL #### [facility] [address] [place] [address] Dr. Ember Teague WBC 6.8 103/ul Normal 4.0-11.0 [facility] Comment on above: Performed By: #### R ENAL #### [facility] [address] [place] [address] Dr. Ember Teague PROF CHEM 8 (BAS METB)on Anion gap [Moles/Vol] 17.6 mmol/L Normal [facility] Comment on above: Performed By: #### C VDTBH #### [facility] [address] [place] [address] Dr. Ember Teague Calcium [Mass/Vol] 9.0 mg/dL Normal 8.5-10.1 [facility] Comment on above: Performed By: #### C VDTBH #### [facility] [address] [place] [address] Dr. Ember Teague Chloride [Moles/Vol] 104 mmol/L Normal 98-107 [facility] Comment on above: Performed By: #### C VDTBH #### [facility] [address] [place] [address] Dr. Ember Teague CO2 [Moles/Vol] 22.2 mmol/L Normal 21.0-32.0 [facility] Comment on above: Performed By: #### C VDTBH #### [facility] [address] [place] [address] Dr. Ember Teague Creatinine [Mass/Vol] 2.03 mg/dL Critically high 0.55-1.02 [facility] Comment on above: Performed By: #### C VDTBH #### [facility] [address] [place] [address] Dr. Ember Teague EGFR-AF COSTA RICAN 29 mL/min/1.73m2 Critically low >=60 [facility] Comment on above: Performed By: #### C VDTBH #### [facility] [address] [place], [place] [id number] Dr. Ember Teague EGFR-NON AF COSTA RICAN 24 mL/min/1.73m2 Critically low >=60 [facility] Comment on above: Performed By: #### C VDTBH #### [facility] [address] [place] [address] Dr. Ember Teague Glucose [Mass/Vol] 154 mg/dL Critically high 74-106 [facility] Comment on above: Performed By: #### C VDTBH #### [facility] [address] [place] [address] Dr. Ember Teague Potassium [Moles/Vol] 4.8 mmol/L Normal 3.5-5.1 [facility] Comment on above: Performed By: #### C VDTBH #### [facility] [address] [place] [address] Dr. Ember Teague Sodium [Moles/Vol] 139 mmol/L Normal 136-145 [facility] Comment on above: Performed By: #### C VDTBH #### [facility] [address] [place] [address] Dr. Ember Teague Urea nitrogen [Mass/Vol] 43.0 mg/dL Critically high 7.0-18.0 [facility] Comment on above: Performed By: #### C VDTBH #### [facility] [address] [place] [address] Dr. Ember Teague Urea nitrogen/Creatinine [Mass ratio] 21.2 mg/mg Normal [facility] Comment on above: Performed By: #### C VDTBH #### [facility] [address] [place] [address] Dr. Ember Teague CULTURE SPUTUMon 10-24-2022 CULTURE SPUTUM Culture Observations : Beta lactamase positive Isolate 1 Haemophilus influenzae Moderate growth of Normal [facility] Comment on above: Performed By: #### R ENAL #### [facility] [address] [place] [address] Dr. Ember Teague SPUTUM GRAM STAINon 10-24-19 COMMENTS Normal [facility] Comment on above: Performed By: #### R ENAL #### [facility] [address] [address] [address] Ember Teague DIPHTHEROIDS Normal [facility] Comment on above: Performed By: #### R ENAL #### [facility] [address] [address] [address] Ember Teague EPITHELIALS >25 Normal [facility] Comment on above: Performed By: #### R ENAL #### [facility] [address] [address] [address] Ember Teague FUNGAL ELEMENTS Normal [facility] Comment on above: Performed By: #### R ENAL #### [facility] [address] [address] [address] Ember Teague GRAM NEG BACILLI [facility] Comment on above: Performed By: #### R ENAL #### [facility] [address] [address] [address] Ember Teague GRAM NEG DIPPLOCOCCI FEW Normal [facility] Comment on above: Performed By: #### R ENAL #### [facility] [address] [address] [address] Ember Teague GRAM POS BACILLI FEW [facility] Comment on above: Performed By: #### R ENAL #### [facility] [address] [address] [address] Ember Teague GRAM POSITIVE COCCI MANY Normal [facility] Comment on above: Performed By: #### R ENAL #### [facility] [address] [address] [address] Ember Teague WBC (Bld) [#/Vol] 10*3/uL Normal [facility] Comment on above: Performed By: #### R ENAL #### [facility] [address] [address] [address] Ember Teague XR CHEST 2 Von [...] acute cardiopulmonary process. Electronically authenticated by: ANGELINA ANDERSRASHEED Date: 2022-10-24 16:22 Normal [facility] FERRITINon 09-18-2022 Ferritin [Mass/Vol] 612.0 ng/mL Critically high 8.0-252.0 [facility] Comment on above: Performed By: #### F ERR, FETIBC #### [facility] [address] [place] [address] Dr. Ember Teague HEMOGRAM AND PLATELon 2021 Hematocrit (Bld) [Volume fraction] 28.1 % Critically low 36.0-48.0 [facility] Comment on above: Performed By: #### C BC #### [facility] [address] [place] [address] Dr. Ember Teague Hemoglobin (Bld) [Mass/Vol] 9.7 g/dL Critically low 12.0-16.0 [facility] Comment on above: Performed By: #### C BC #### [facility] [address] [place] [address] Dr. Ember Teague MCH (RBC) [Entitic mass] 31.3 pg Normal 26.7-34.0 [facility] Comment on above: Performed By: #### C BC #### [facility] [address] [place] [address] Dr. Ember Teague MCHC (RBC) [Mass/Vol] 34.5 g/dL Normal 29.9-35.2 [facility] Comment on above: Performed By: #### C BC #### [facility] [address] [place] [address] Dr. Ember Teague MCV (RBC) [Entitic vol] 90.6 fL Normal 81.0-99.0 [facility] Comment on above: Performed By: #### C BC #### [facility] [address] [place] [address] Dr. Ember Teague PLT 183 103/ul Normal 150-450 [facility] Comment on above: Performed By: #### C BC #### [facility] [address] [address] [address] Ember Teague RBC 3.10 106/ul Critically low 4.20-5.40 [facility] Comment on above: Performed By: #### C BC #### [facility] [address] [address] [address] Ember Teague WBC 7.2 103/ul Normal 4.0-11.0 [facility] Comment on above: Performed By: #### C BC #### [facility] [address] [address] [address] Ember Teague IRON AND TIBCon 09-18-2022 % SATURATION 36.0 % Normal [facility] [facility] Comment on above: Performed By: #### F ERR, FETIBC #### [facility] [address] [place] [address] Dr. Ember Teague Iron [Mass/Vol] 77.0 ug/dL Normal 50.0-170.0 [facility] Comment on above: Performed By: #### F ERR, FETIBC #### [facility] [address] [address] [address] Ember Teague TIBC DIRECT 214.0 ug/dL Critically low 250.0-450.0 [facility] Comment on above: Performed By: #### F ERR, FETIBC #### [facility] [address] [place] [address] Dr. Ember Teague RENAL FUNCTION PANELon 09-18 Albumin [Mass/Vol] 3.7 g/dL Normal 3.4-5.0 [facility] Comment on above: Performed By: #### R ENAL #### [facility] [address] [address] [address] Ember Teague Calcium [Mass/Vol] 9.5 mg/dL Normal 8.5-10.1 [facility] Comment on above: Performed By: #### R ENAL #### [facility] [address] [place] [address] Dr. Ember Teague Chloride [Moles/Vol] 103 mmol/L Normal 98-107 [facility] Comment on above: Performed By: #### R ENAL #### [facility] [address] [address] [address] Ember Teague CO2 [Moles/Vol] 21.1 mmol/L Normal 21.0-32.0 [facility] Comment on above: Performed By: #### R ENAL #### [facility] [address] [address] [address] Ember Teague Creatinine [Mass/Vol] 1.85 mg/dL Critically high 0.55-1.02 [facility] Comment on above: Performed By: #### R ENAL #### [facility] [address] [address] [address] Ember Teague EGFR-AF COSTA RICAN 32 mL/min/1.73m2 Critically low >=60 [facility] Comment on above: Performed By: #### R ENAL #### [facility] [address] [address] [address] Ember Teague EGFR-NON AF COSTA RICAN 26 mL/min/1.73m2 Critically low >=60 [facility] Comment on above: Performed By: #### R ENAL #### [facility] [address] [address] [address] Ember Teague Glucose [Mass/Vol] 183 mg/dL Critically high 74-106 [facility] Comment on above: Performed By: #### R ENAL #### [facility] [address] [address] [address] Ember Teague Phosphate [Mass/Vol] 3.7 mg/dL Normal 2.6-4.7 [facility] Comment on above: Performed By: #### R ENAL #### [facility] [address] [address] [address] Ember Teague Potassium [Moles/Vol] 4.9 mmol/L Normal 3.5-5.1 [facility] Comment on above: Performed By: #### R ENAL #### [facility] [address] [address] [address] Ember Teague Sodium [Moles/Vol] 138 mmol/L Normal 136-145 [facility] Comment on above: Performed By: #### R ENAL #### [facility] [address] [place] [address] Dr. Ember Teague Urea nitrogen [Mass/Vol] 40.0 mg/dL Critically high 7.0-18.0 [facility] Comment on above: Performed By: #### R ENAL #### [facility] [address] [place] [address] Dr. Ember Teague CULTURE URINEon 09-15-2022 CULTURE [...] F Trimethoprim/Sulfamet hoxazole <=20 S F Normal [facility] Comment on above: Performed By: #### R ENAL #### [facility] [address] [place] [address] Dr. Ember Teague BNPon 09-11-2022 Natriuretic peptide B (Bld) [Mass/Vol] 408.0 pg/mL Normal <=1,800.0 [facility] Comment on above: Performed By: #### P THINT #### [facility] [address] [place] [address] Dr. Ember Teague CBC AUTO DIFFon 09-11-2022 BASO # 0.0 103/ul Normal 0.0-0.1 [facility] Comment on above: Performed By: #### C BC #### [facility] [address] [place] [address] Dr. Ember Teague Basophils/100 WBC (Bld) 0.3 % Normal 0.2-2.0 [facility] Comment on above: Performed By: #### C BC #### [facility] [address] [place] [address] Dr. Ember Teague EO # 0.1 103/ul Normal 0.0-0.7 [facility] Comment on above: Performed By: #### C BC #### [facility] [address] [place] [address] Dr. Ember Teague Eosinophils/100 WBC (Bld) 1.9 % Normal 0.9-7.0 [facility] Comment on above: Performed By: #### C BC #### [facility] [address] [place] [address] Dr. Ember Teague Erythrocyte distribution width (RBC) [Ratio] 15.2 % Critically high 11.0-15.0 [facility] Comment on above: Performed By: #### C BC #### [facility] [address] [place] [address] Dr. Ember Teague Hematocrit (Bld) [Volume fraction] 26.6 % Critically low 36.0-48.0 [facility] Comment on above: Performed By: #### C BC #### [facility] [address] [place] [address] Dr. Ember Teague Hemoglobin (Bld) [Mass/Vol] 9.0 g/dL Critically low 12.0-16.0 [facility] Comment on above: Performed By: #### C BC #### [facility] [address] [place] [address] Dr. Ember Teague IG # 0.02 10e3/ul Normal 0.00-0.03 [facility] Comment on above: Performed By: #### C BC #### [facility] [address] [place] [address] Dr. Ember Teague IG % 0.3 % Normal 0.0-0.5 [facility] Comment on above: Performed By: #### C BC #### [facility] [address] [place] [address] Dr. Ember Teague LYMPH # 1.9 103/ul Normal 1.2-3.8 [facility] Comment on above: Performed By: #### C BC #### [facility] [address] [place] [address] Dr. Ember Teague Lymphocytes/100 WBC (Bld) 32.4 % Normal 20.5-60.0 [facility] Comment on above: Performed By: #### C BC #### [facility] [address] [place] [address] Dr. Ember Teague MANUAL DIFF REQ NO Normal [facility] Comment on above: Performed By: #### C BC #### [facility] [address] [place] [address] Dr. Ember Teague MCH (RBC) [Entitic mass] 31.1 pg Normal 26.7-34.0 [facility] Comment on above: Performed By: #### C BC #### [facility] [address] [place] [address] Dr. Ember Teague MCHC (RBC) [Mass/Vol] 33.8 g/dL Normal 29.9-35.2 [facility] Comment on above: Performed By: #### C BC #### [facility] [address] [place] [address] Dr. Ember Teague MCV (RBC) [Entitic vol] 92.0 fL Normal 81.0-99.0 [facility] Comment on above: Performed By: #### C BC #### [facility] [address] [place] [address] Dr. Ember Teague MONO # 0.6 103/ul Normal 0.3-0.8 [facility] Comment on above: Performed By: #### C BC #### [facility] [address] [place] [address] Dr. Ember Teague Monocytes/100 WBC (Bld) 10.0 % Normal 1.7-12.0 [facility] Comment on above: Performed By: #### C BC #### [facility] [address] [place] [address] Dr. Ember Teague NEUT # 3.2 103/ul Normal 1.4-6.5 [facility] Comment on above: Performed By: #### C BC #### [facility] [address] [place] [address] Dr. Ember Teague Neutrophils/100 WBC (Bld) 55.1 % Normal 43.0-75.0 [facility] Comment on above: Performed By: #### C BC #### [facility] [address] [place] [address] Dr. Ember Teague Platelet mean volume (Bld) [Entitic vol] 9.4 fL Critically low 9.5-13.5 [facility] Comment on above: Performed By: #### C BC #### [facility] [address] [place] [address] Dr. Ember Teague PLT 196 103/ul Normal 150-450 [facility] Comment on above: Performed By: #### C BC #### [facility] [address] [place] [address] Dr. Ember Teague RBC 2.89 106/ul Critically low 4.20-5.40 [facility] Comment on above: Performed By: #### C BC #### [facility] [address] [place] [address] Dr. Ember Teague WBC 5.8 103/ul Normal 4.0-11.0 [facility] Comment on above: Performed By: #### C BC #### [facility] [address] [place] [address] Dr. Ember Teague PROF 14(COMP METB)on 022 Albumin [Mass/Vol] 3.7 g/dL Normal 3.4-5.0 [facility] Comment on above: Performed By: #### P THINT #### [facility] [address] [place] [address] Dr. Ember Teague Albumin/Globulin [Mass ratio] 1.0 {ratio} Normal [facility] Comment on above: Performed By: #### P THINT #### [facility] [address] [place] [address] Dr. Ember Teague ALP [Catalytic activity/Vol] 79 U/L Normal 46-116 [facility] Comment on above: Performed By: #### P THINT #### [facility] [address] [place] [address] Dr. Ember Teague ALT [Catalytic activity/Vol] 24 U/L Normal 14-59 [facility] Comment on above: Performed By: #### P THINT #### [facility] [address] [address] [address] Ember Teague Anion gap [Moles/Vol] 12.8 mmol/L Normal [facility] Comment on above: Performed By: #### P THINT #### [facility] [address] [address] [address] Ember Teague AST [Catalytic activity/Vol] 17 U/L Normal 15-37 [facility] Comment on above: Performed By: #### P THINT #### [facility] [address] [address] [address] Ember Teague Bilirubin [Mass/Vol] 0.5 mg/dL Normal 0.2-1.0 [facility] Comment on above: Performed By: #### P THINT #### [facility] [address] [place] [address] Dr. Ember Teague Calcium [Mass/Vol] 9.4 mg/dL Normal 8.5-10.1 [facility] Comment on above: Performed By: #### P THINT #### [facility] [address] [place] [address] Dr. Ember Teague Chloride [Moles/Vol] 101 mmol/L Normal 98-107 [facility] Comment on above: Performed By: #### P THINT #### [facility] [address] [place] [address] Dr. Ember Teague CO2 [Moles/Vol] 24.3 mmol/L Normal 21.0-32.0 [facility] Comment on above: Performed By: #### P THINT #### [facility] [address] [place] [address] Dr. Ember Teague Creatinine [Mass/Vol] 2.84 mg/dL Critically high 0.55-1.02 [facility] Comment on above: Performed By: #### P THINT #### [facility] [address] [place] [address] Dr. Ember Teague EGFR-AF COSTA RICAN 20 mL/min/1.73m2 Critically low >=60 [facility] Comment on above: Performed By: #### P THINT #### [facility] [address] [address] [address] Ember Teague EGFR-NON AF COSTA RICAN 16 mL/min/1.73m2 Critically low >=60 [facility] Comment on above: Performed By: #### P THINT #### [facility] [address] [address] [address] Ember Teague Globulin (S) [Mass/Vol] 3.7 g/dL Normal [facility] Comment on above: Performed By: #### P THINT #### [facility] [address] [address] [address] Ember Teague Glucose [Mass/Vol] 174 mg/dL Critically high 74-106 [facility] Comment on above: Performed By: #### P THINT #### [facility] [address] [address] [address] Ember Teague Potassium [Moles/Vol] 5.1 mmol/L Normal 3.5-5.1 [facility] Comment on above: Performed By: #### P THINT #### [facility] [address] [place] [address] Dr. Ember Teague Protein [Mass/Vol] 7.4 g/dL Normal 6.4-8.2 [facility] Comment on above: Performed By: #### P THINT #### [facility] [address] [address] [address] Ember Teague Sodium [Moles/Vol] 133 mmol/L Critically low 136-145 [facility] Comment on above: Performed By: #### P THINT #### [facility] [address] [address] [address] Ember Teague Urea nitrogen [Mass/Vol] 68.0 mg/dL Critically high 7.0-18.0 [facility] Comment on above: Performed By: #### P THINT #### [facility] [address] [address] [address] Ember Teague Urea nitrogen/Creatinine [Mass ratio] 23.9 mg/mg Normal [facility] Comment on above: Performed By: #### P THINT #### [facility] [address] [place] [address] Dr. Ember Teague TROPONIN, HIGH SENSITIVITYon 09-11-2022 HSTROP 9.1 pg/mL Normal 4.0-51.3 [facility] Comment on above: Result Comment: CUT- OFF POINTS HAVE BEEN ESTABLISHED BASED ON THE FOURTH UNIVERSAL DEFINITIONS OF MYOCARDIAL INFARCTION. THE UPPER REFERENCE LIMIT (URL) OF TROPONIN, DEFINED THE 99TH PERCENTILE OF cTnI DISTRIBUTION IN A REFERENCE POPULATION, HAS BEEN CONFIRMED THE DECISION THRESHOLD FOR ME DIAGNOSIS. Performed By: #### P THINT #### [facility] [address] [place] [address] Dr. Ember Teague UA RANDOM W/MICROSCOPICon BACTERIA NONE SEEN Normal NONE SEEN [facility] Comment on above: Performed By: #### C VDTBH #### [facility] [address] [place] [address] Dr. Ember Teague Bilirubin Ql (U) Negative Normal NEGATIVE [facility] Comment on above: Performed By: #### C VDTBH #### [facility] [address] [place] [address] Dr. Ember Teague CAST NONE SEEN Normal NONE SEEN [facility] Comment on above: Performed By: #### C VDTBH #### [facility] [address] [place] [address] Dr. Ember Teague Clarity (U) CLEAR Normal CLEAR [facility] Comment on above: Performed By: #### C VDTBH #### [facility] [address] [place] [address] Dr. Ember Teague Color (U) LT. YELLOW Normal YELLOW [facility] Comment on above: Performed By: #### C VDTBH #### [facility] [address] [place] [address] Dr. Ember Teague Crystals LM Nom (Urine sed) NONE SEEN Normal NONE SEEN [facility] Comment on above: Performed By: #### C VDTBH #### [facility] [address] [place] [address] Dr. Ember Teague Epithelial cells LM Ql (Urine sed) FEW Abnormal NONE SEEN /RARE [facility] Comment on above: Performed By: #### C VDTBH #### [facility] [address] [place] [address] Dr. Ember Teague Glucose Ql (U) Negative Normal NEGATIVE [facility] Comment on above: Performed By: #### C VDTBH #### [facility] [address] [place] [address] Dr. Ember Teague Hemoglobin Ql (U) Negative Normal NEGATIVE [facility] Comment on above: Performed By: #### C VDTBH #### [facility] [address] [place] [address] Dr. Ember Teague Ketones Ql (U) Negative Normal NEGATIVE [facility] Comment on above: Performed By: #### C VDTBH #### [facility] [address] [place] [address] Dr. Ember Teague LEUKOCYTES Negative Normal NEGATIVE [facility] Comment on above: Performed By: #### C VDTBH #### [facility] [address] [place] [address] Dr. Ember Teague MUCOUS NONE SEEN Normal NONE SEEN [facility] Comment on above: Performed By: #### C VDTBH #### [facility] [address] [place] [address] Dr. Ember Teague Nitrite Ql (U) Negative Normal NEGATIVE [facility] Comment on above: Performed By: #### C VDTBH #### [facility] [address] [place] [address] Dr. Ember Teague pH (U) 5.5 [pH] Normal 5-9 [facility] Comment on above: Performed By: #### C VDTBH #### [facility] [address] [place] [address] Dr. Ember Teague RBC NONE SEEN Abnormal 0-2 [facility] Comment on above: Performed By: #### C VDTBH #### [facility] [address] [place] [address] Dr. Ember Teague SPEC GRAVITY 1.010 Normal 1.005-<=1.025 [facility] Comment on above: Performed By: #### C VDTBH #### [facility] [address] [place] [address] Dr. Ember Teague UA PROTEIN Negative Normal NEGATIVE/ TRACE [facility] Comment on above: Performed By: #### C VDTBH #### [facility] [address] [place] [address] Dr. Ember Teague Urobilinogen Qn (U) 0.2 {Esau'U}/dL Normal 0.2 - 1. 0 [facility] Comment on above: Performed By: #### C VDTBH #### [facility] [address] [place] [address] Dr. Ember Teague WBC NONE SEEN Normal NONE SEEN [facility] Comment on above: Performed By: #### C VDTBH #### [facility] [address] [place] [address] Dr. Ember Teague CBC AUTO DIFFon 08-13-2022 BASO # 0.0 103/ul Normal 0.0-0.1 [facility] Comment on above: Performed By: #### C BC #### [facility] [address] [place] [address] Dr. Ember Teague Basophils/100 WBC (Bld) 0.3 % Normal 0.2-2.0 [facility] Comment on above: Performed By: #### C BC #### [facility] [address] [place] [address] Dr. Ember Teague EO # 0.2 103/ul Normal 0.0-0.7 [facility] Comment on above: Performed By: #### C BC #### [facility] [address] [place] [address] Dr. Ember Teague Eosinophils/100 WBC (Bld) 3.7 % Normal 0.9-7.0 [facility] Comment on above: Performed By: #### C BC #### [facility] [address] [place] [address] Dr. Ember Teague Erythrocyte distribution width (RBC) [Ratio] 15.0 % Normal 11.0-15.0 [facility] Comment on above: Performed By: #### C BC #### [facility] [address] [place] [address] Dr. Ember Teague Hematocrit (Bld) [Volume fraction] 27.9 % Critically low 36.0-48.0 [facility] Comment on above: Performed By: #### C BC #### [facility] [address] [place] [address] Dr. Ember Teague Hemoglobin (Bld) [Mass/Vol] 9.7 g/dL Critically low 12.0-16.0 [facility] Comment on above: Performed By: #### C BC #### [facility] [address] [place] [address] Dr. Ember Teague IG # 0.01 10e3/ul Normal 0.00-0.03 [facility] Comment on above: Performed By: #### C BC #### [facility] [address] [place] [address] Dr. Ember Teague IG % 0.2 % Normal 0.0-0.5 [facility] Comment on above: Performed By: #### C BC #### [facility] [address] [place] [address] Dr. Ember Teague LYMPH # 1.9 103/ul Normal 1.2-3.8 [facility] Comment on above: Performed By: #### C BC #### [facility] [address] [place] [address] Dr. Ember Teague Lymphocytes/100 WBC (Bld) 32.2 % Normal 20.5-60.0 [facility] Comment on above: Performed By: #### C BC #### [facility] [address] [place] [address] Dr. Ember Teague MANUAL DIFF REQ NO Normal [facility] Comment on above: Performed By: #### C BC #### [facility] [address] [place] [address] Dr. Ember Teague MCH (RBC) [Entitic mass] 31.4 pg Normal 26.7-34.0 [facility] Comment on above: Performed By: #### C BC #### [facility] [address] [address] [address] Ember Teague MCHC (RBC) [Mass/Vol] 34.8 g/dL Normal 29.9-35.2 [facility] Comment on above: Performed By: #### C BC #### [facility] [address] [address] [address] Ember Teague MCV (RBC) [Entitic vol] 90.3 fL Normal 81.0-99.0 [facility] Comment on above: Performed By: #### C BC #### [facility] [address] [place] [address] Dr. Ember Teague MONO # 0.6 103/ul Normal 0.3-0.8 [facility] Comment on above: Performed By: #### C BC #### [facility] [address] [place] [address] Dr. Ember Teague Monocytes/100 WBC (Bld) 9.8 % Normal 1.7-12.0 [facility] Comment on above: Performed By: #### C BC #### [facility] [address] [place] [address] Dr. Ember Teague NEUT # 3.2 103/ul Normal 1.4-6.5 [facility] Comment on above: Performed By: #### C BC #### [facility] [address] [place] [address] Dr. Ember Teague Neutrophils/100 WBC (Bld) 53.8 % Normal 43.0-75.0 [facility] Comment on above: Performed By: #### C BC #### [facility] [address] [place] [address] Dr. Ember Teague Platelet mean volume (Bld) [Entitic vol] 10.0 fL Normal 9.5-13.5 [facility] Comment on above: Performed By: #### C BC #### [facility] [address] [address] [address] Ember Teague PLT 194 103/ul Normal 150-450 [facility] Comment on above: Performed By: #### C BC #### [facility] [address] [place] [address] Dr. Ember Teague RBC 3.09 106/ul Critically low 4.20-5.40 [facility] Comment on above: Performed By: #### C BC #### [facility] [address] [place] [address] Dr. Ember Teague WBC 6.0 103/ul Normal 4.0-11.0 [facility] Comment on above: Performed By: #### C BC #### [facility] [address] [place] [address] Dr. Ember Teague PTH INTACTon 06-26-2022 PTH, Intact 39 pg/mL Normal 15-65 [facility] Comment on above: Performed By: #### P THINT #### [facility] [address] [place] [address] Dr. Ember Teague CBC AUTO DIFFon 06-25-2022 BASO # 0.1 103/ul Normal 0.0-0.1 [facility] Comment on above: Performed By: #### C VDTBH #### [facility] [address] [place] [address] Dr. Ember Teague Basophils/100 WBC (Bld) 0.6 % Normal 0.2-2.0 [facility] Comment on above: Performed By: #### C VDTBH #### [facility] [address] [place] [address] Dr. Ember Teague EO # 0.2 103/ul Normal 0.0-0.7 [facility] Comment on above: Performed By: #### C VDTBH #### [facility] [address] [place] [address] Dr. Ember Teague Eosinophils/100 WBC (Bld) 3.0 % Normal 0.9-7.0 [facility] Comment on above: Performed By: #### C VDTBH #### [facility] [address] [place] [address] Dr. Ember Teague Erythrocyte distribution width (RBC) [Ratio] 14.2 % Normal 11.0-15.0 [facility] Comment on above: Performed By: #### C VDTBH #### [facility] [address] [place] [address] Dr. Ember Teague Hematocrit (Bld) [Volume fraction] 30.9 % Critically low 36.0-48.0 [facility] Comment on above: Performed By: #### C VDTBH #### [facility] [address] [place] [address] Dr. Ember Teague Hemoglobin (Bld) [Mass/Vol] 10.6 g/dL Critically low 12.0-16.0 [facility] Comment on above: Performed By: #### C VDTBH #### [facility] [address] [place] [address] Dr. Ember Teague IG # 0.04 10e3/ul Critically high 0.00-0.03 [facility] [place] [facility] Comment on above: Performed By: #### C VDTBH #### [facility] [address] [place] [address] Dr. Ember Teague IG % 0.5 % Normal 0.0-0.5 [facility] Comment on above: Performed By: #### C VDTBH #### [facility] [address] [place] [address] Dr. Ember Teague LYMPH # 2.2 103/ul Normal 1.2-3.8 [facility] Comment on above: Performed By: #### C VDTBH #### [facility] [address] [place] [address] Dr. Ember Teague Lymphocytes/100 WBC (Bld) 27.0 % Normal 20.5-60.0 [facility] Comment on above: Performed By: #### C VDTBH #### [facility] [address] [place] [address] Dr. Ember Teague MANUAL DIFF REQ NO Normal [facility] Comment on above: Performed By: #### C VDTBH #### [facility] [address] [place] [address] Dr. Ember Teague MCH (RBC) [Entitic mass] 31.2 pg Normal 26.7-34.0 [facility] Comment on above: Performed By: #### C VDTBH #### [facility] [address] [place] [address] Dr. Ember Teague MCHC (RBC) [Mass/Vol] 34.3 g/dL Normal 29.9-35.2 [facility] Comment on above: Performed By: #### C VDTBH #### [facility] [address] [place] [address] Dr. Ember Teague MCV (RBC) [Entitic vol] 90.9 fL Normal 81.0-99.0 [facility] Comment on above: Performed By: #### C VDTBH #### [facility] [address] [place] [address] Dr. Ember Teague MONO # 0.7 103/ul Normal 0.3-0.8 [facility] Comment on above: Performed By: #### C VDTBH #### [facility] [address] [place] [address] Dr. Ember Teague Monocytes/100 WBC (Bld) 9.2 % Normal 1.7-12.0 [facility] Comment on above: Performed By: #### C VDTBH #### [facility] [address] [place] [address] Dr. Ember Teague NEUT # 4.8 103/ul Normal 1.4-6.5 [facility] Comment on above: Performed By: #### C VDTBH #### [facility] [address] [place] [address] Dr. Ember Teague Neutrophils/100 WBC (Bld) 59.7 % Normal 43.0-75.0 [facility] Comment on above: Performed By: #### C VDTBH #### [facility] [address] [place] [address] Dr. Ember Teague Platelet mean volume (Bld) [Entitic vol] 9.3 fL Critically low 9.5-13.5 [facility] Comment on above: Performed By: #### C VDTBH #### [facility] [address] [place] [address] Dr. Ember Teague PLT 227 103/ul Normal 150-450 [facility] Comment on above: Performed By: #### C VDTBH #### [facility] [address] [place], [place] [address] Dr. Ember Teague RBC 3.40 106/ul Critically low 4.20-5.40 [facility] Comment on above: Performed By: #### C VDTBH #### [facility] [address] [place], [place] [address] Dr. Ember Teague WBC 8.0 103/ul Normal 4.0-11.0 [facility] Comment on above: Performed By: #### C VDTBH #### [facility] [address] [id number] Ember Teague MRI LSPINE WO CONon [...] YANET HUERTA Date: 2022-06-25 08:45 Normal [facility] RENAL FUNCTION PANELon 06-25 Albumin [Mass/Vol] 3.9 g/dL Normal 3.4-5.0 [facility] Comment on above: Performed By: #### P THINT #### [facility] [address] [address] [address] Ember Teague Calcium [Mass/Vol] 9.5 mg/dL Normal 8.5-10.1 [facility] Comment on above: Performed By: #### P THINT #### [facility] [address] [address] [address] Ember Teague Chloride [Moles/Vol] 102 mmol/L Normal 98-107 [facility] Comment on above: Performed By: #### P THINT #### [facility] [address] [address] [address] Ember Teague CO2 [Moles/Vol] 23.8 mmol/L Normal 21.0-32.0 [facility] Comment on above: Performed By: #### P THINT #### [facility] [address] [address] [address] Ember Teague Creatinine [Mass/Vol] 1.75 mg/dL Critically high 0.55-1.02 [facility] Comment on above: Performed By: #### P THINT #### [facility] [address] [address] [address] Ember Teague EGFR-AF CO[place] R[place] 34 mL/min/1.73m2 Critically low >=60 [facility] Comment on above: Performed By: #### P THINT #### [facility] [address] [address] [address] Ember Teague EGFR-NON AF [place] 28 mL/min/1.73m2 Critically low >=60 [facility] Comment on above: Performed By: #### P THINT #### [facility] [address] [address] [address] Ember Teague Glucose [Mass/Vol] 199 mg/dL Critically high 74-106 [facility] Comment on above: Performed By: #### P THINT #### [facility] [address] [address] [address] Ember Teague Phosphate [Mass/Vol] 4.3 mg/dL Normal 2.6-4.7 [facility] Comment on above: Performed By: #### P THINT #### [facility] [address] [address] [address] Ember Teague Potassium [Moles/Vol] 4.9 mmol/L Normal 3.5-5.1 [facility] Comment on above: Performed By: #### P THINT #### [facility] [address] [place] [address] Dr. Ember Teague Sodium [Moles/Vol] 135 mmol/L Critically low 136-145 [facility] Comment on above: Performed By: #### P THINT #### [facility] [address] [address] [address] Ember Teague Urea nitrogen [Mass/Vol] 34.0 mg/dL Critically high 7.0-18.0 [facility] Comment on above: Performed By: #### P THINT #### [facility] [address] [place] [address] Dr. Ember Teague VITAMIN D 25 OHon 06-25-2022 VIT D 25-OH 40.6 ng/mL Normal [facility] Comment on above: Performed By: #### P THINT #### [facility] [address] [place] [address] Dr. Ember Teague VIT D RANGES SEE BELOW Normal [facility] Comment on above: Result Comment: <20 ng/mL Vit D deficient 20 - <30 ng/mL Vit D insufficient 30 - 100 ng/mL Vit D sufficient >100 ng/mL Potential Toxicity Performed By: #### P THINT #### [facility] [address] [place] [address] Dr. Ember Teague Covid-19 PCR (CVDTBH)on 06-07 SARS-CoV-2 (COVID-19) RNA ALEXX+probe Ql (Unsp spec) Not detected Normal NOT DETECTED [facility] Comment on above: Result Comment: This test is not yet approved or cleared by the [place] FDA. When there are no FDA-approved or cleared tests available, and other criteria are met, FDA can make tests available under an emergency access mechanism called an Emergency Use Authorization (EUA). The EUA for this test is supported by the [place] of Health and Human Service's (HHS's) declaration [...] consistent with SARS-CoV-2. Performed By: #### C [facility] #### [facility] [address] [place] [address] LSPINE WO CONon 2 CT [facility] WO CON EXAMINATION: [place], 06/01/2022 7:48 AM EDT HISTORY: [...] YANET HUERTA Date: 2022-06-01 18:02 Normal [facility] XR LSPINE MIN 4 VIEWSon 05-07 XR [...] YANET HUERTA Date: 2022-05-21 15:25 Normal [facility] PTH INTACTon 05-03-2022 PTH, Intact 60 pg/mL Normal 15-65 [facility] Comment on above: Performed By: #### [facility] #### [facility] [address] [place] [address] Dr. Ember Teague VIT D 25-OH LABCORPon 2021 Vitamin D, 25-Hydroxy 26.1 ng/mL Critically low 30.0-100.0 [facility] Comment on above: Result Comment: Sara min D deficiency has been defined by the [place] of Medicine and an Endocrine Society practice guideline as a level of serum 25-OH vitamin D less than 20 ng/mL (1,2). The Endocrine Society went on to further define vitamin D insufficiency as a level between 21 and 29 ng/mL (2). 1. IOM ([place] of Medicine). 2010. Dietary reference intakes for calcium and D. [place]: The National Academies Press. 2. Sherice MF, Wendy NC, Huan ZHONG, et al. Evaluation, treatment, and prevention of vitamin D deficiency: an Endocrine Society clinical practice guideline. JCEM. 2010; 96(7):1911-30. Performed By: #### R ENAL #### [facility] [address] [place] [address] Dr. Ember Teauge FERRITINon 05-02-2022 Ferritin [Mass/Vol] 590.0 ng/mL Critically high 8.0-252.0 [facility] Comment on above: Performed By: #### R ENAL #### [facility] [address] [place] [address] Dr. Ember Teague HEMOGRAM AND PLATELon 2021 Hematocrit (Bld) [Volume fraction] 28.4 % Critically low 36.0-48.0 [facility] Comment on above: Performed By: #### C VDTBH #### [facility] [address] [place] [address] Dr. Ember Teague Hemoglobin (Bld) [Mass/Vol] 9.6 g/dL Critically low 12.0-16.0 [facility] Comment on above: Performed By: #### C VDTBH #### [facility] [address] [place] [address] Dr. Ember Teague MCH (RBC) [Entitic mass] 31.0 pg Normal 26.7-34.0 [facility] Comment on above: Performed By: #### C VDTBH #### [facility] [address] [place] [address] Dr. Ember Teague MCHC (RBC) [Mass/Vol] 33.8 g/dL Normal 29.9-35.2 [facility] Comment on above: Performed By: #### C VDTBH #### [facility] [address] [place] [address] Dr. Ember Teague MCV (RBC) [Entitic vol] 91.6 fL Normal 81.0-99.0 [facility] Comment on above: Performed By: #### C VDTBH #### [facility] [address] [address] [address] Ember Teague PLT 189 103/ul Normal 150-450 [facility] Comment on above: Performed By: #### C VDTBH #### [facility] [address] [address] [address] Ember Teague RBC 3.10 106/ul Critically low 4.20-5.40 [facility] Comment on above: Performed By: #### C VDTBH #### [facility] [address] [address] [address] Ember Teague WBC 6.2 103/ul Normal 4.0-11.0 [facility] Comment on above: Performed By: #### C VDTBH #### [facility] [address] [place] [address] Dr. Ember Teague IRON AND TIBCon 05-02-2022 % SATURATION 34.3 % Normal [facility] Comment on above: Performed By: #### R ENAL #### [facility] [address] [address] [address] Ember Teague Iron [Mass/Vol] 69.0 ug/dL Normal 50.0-170.0 [facility] Comment on above: Performed By: #### R ENAL #### [facility] [address] [place] [address] Dr. Ember Teague TIBC DIRECT 201.0 ug/dL Critically low 250.0-450.0 [facility] [place] [facility] Comment on above: Performed By: #### R ENAL #### [facility] [address] [address] [address] Ember Teague MAGNESIUMon 05-02-2022 Magnesium [Mass/Vol] 1.7 mg/dL Critically low 1.8-2.4 [facility] Comment on above: Performed By: #### C VDTBH #### [facility] [address] [place] [address] Dr. Ember Teague RENAL FUNCTION PANELon 05-02 Albumin [Mass/Vol] 3.6 g/dL Normal 3.4-5.0 [facility] Comment on above: Performed By: #### C VDTBH #### [facility] [address] [place] [address] Dr. Ember Teague Calcium [Mass/Vol] 9.2 mg/dL Normal 8.5-10.1 [facility] Comment on above: Performed By: #### C VDTBH #### [facility] [address] [place] [address] Dr. Ember Teague Chloride [Moles/Vol] 107 mmol/L Normal 98-107 [facility] Comment on above: Performed By: #### C VDTBH #### [facility] [address] [place] [address] Dr. Ember Teague CO2 [Moles/Vol] 21.2 mmol/L Normal 21.0-32.0 [facility] Comment on above: Performed By: #### C VDTBH #### [facility] [address] [place] [address] Dr. Ember Teague Creatinine [Mass/Vol] 1.75 mg/dL Critically high 0.55-1.02 [facility] Comment on above: Performed By: #### C VDTBH #### [facility] [address] [place] [address] Dr. Ember Teague EGFR-AF [place] 34 mL/min/1.73m2 Critically low >=60 [facility] Comment on above: Performed By: #### C VDTBH #### [facility] [address] [place] [address] Dr. Ember Teague EGFR-NON AF [place] 28 mL/min/1.73m2 Critically low >=60 [facility] Comment on above: Performed By: #### C VDTBH #### [facility] [address] [place] [address] Dr. Ember Teague Glucose [Mass/Vol] 193 mg/dL Critically high 74-106 [facility] Comment on above: Performed By: #### C VDTBH #### [facility] [address] [place] [address] Dr. Ember Teague Phosphate [Mass/Vol] 4.2 mg/dL Normal 2.6-4.7 [facility] Comment on above: Performed By: #### C VDTBH #### [facility] [address] [place] [address] Dr. Ember Teague Potassium [Moles/Vol] 5.1 mmol/L Normal 3.5-5.1 [facility] Comment on above: Performed By: #### C VDTBH #### [facility] [address] [place] [address] Dr. Ember Teague Sodium [Moles/Vol] 139 mmol/L Normal 136-145 [facility] Comment on above: Performed By: #### C VDTBH #### [facility] [address] [place] [address] Dr. Ember Teague Urea nitrogen [Mass/Vol] 34.0 mg/dL Critically high 7.0-18.0 [facility] Comment on above: Performed By: #### C VDTBH #### [facility] [address] [place] [address] Dr. Ember Teague UA RANDOM W/MICROSCOPICon BACTERIA SMALL Abnormal NONE SEEN [facility] Comment on above: Performed By: #### C VDTBH #### [facility] [address] [place] [address] Dr. Ember Teague Bilirubin Ql (U) Negative Normal NEGATIVE [facility] Comment on above: Performed By: #### C VDTBH #### [facility] [address] [place] [address] Dr. Ember Teague CAST NONE SEEN Normal NONE SEEN [facility] Comment on above: Performed By: #### C VDTBH #### [facility] [address] [place] [address] Dr. Ember Teague Clarity (U) CLEAR Normal CLEAR [facility] Comment on above: Performed By: #### C VDTBH #### [facility] [address] [place] [address] Dr. Ember Teague Color (U) LT. YELLOW Normal YELLOW [facility] Comment on above: Performed By: #### C VDTBH #### [facility] [address] [place] [address] Dr. Ember Teague Crystals LM Nom (Urine sed) NONE SEEN Normal NONE SEEN [facility] Comment on above: Performed By: #### C VDTBH #### [facility] [address] [place] [address] Dr. Ember Teague Epithelial cells LM Ql (Urine sed) MODERATE Abnormal NONE SEEN /RARE [facility] Comment on above: Performed By: #### C VDTBH #### [facility] [address] [place] [address] Dr. Ember Teague Glucose Ql (U) Negative Normal NEGATIVE [facility] Comment on above: Performed By: #### C VDTBH #### [facility] [address] [place] [address] Dr. Ember Teague Hemoglobin Ql (U) Negative Normal NEGATIVE [facility] Comment on above: Performed By: #### C VDTBH #### [facility] [address] [place] [address] Dr. Ember Teague Ketones Ql (U) Negative Normal NEGATIVE [facility] Comment on above: Performed By: #### C VDTBH #### [facility] [address] [place] [address] Dr. Ember Teague LEUKOCYTES TRACE Abnormal NEGATIVE [facility] Comment on above: Performed By: #### C VDTBH #### [facility] [address] [place] [address] Dr. Ember Teague MUCOUS NONE SEEN Normal NONE SEEN [facility] Comment on above: Performed By: #### C VDTBH #### [facility] [address] [place] [address] Dr. Ember Teague Nitrite Ql (U) Negative Normal NEGATIVE [facility] Comment on above: Performed By: #### C VDTBH #### [facility] [address] [place] [address] Dr. Ember Teague pH (U) 5.0 [pH] Normal 5-9 [facility] Comment on above: Performed By: #### C VDTBH #### [facility] [address] [place] [address] Dr. Ember Teague RBC NONE SEEN Abnormal 0-2 [facility] Comment on above: Performed By: #### C VDTBH #### [facility] [address] [place] [address] Dr. Ember Teague SPEC GRAVITY 1.015 Normal 1.005-<=1.025 [facility] Comment on above: Performed By: #### C VDTBH #### [facility] [address] [place] [address] Dr. Ember Teague UA PROTEIN TRACE Normal NEGATIVE/ TRACE [facility] Comment on above: Performed By: #### C VDTBH #### [facility] [address] [place] [address] Dr. Ember Teague Urobilinogen Qn (U) 0.2 {Esau'U}/dL Normal 0.2 - 1. 0 [facility] Comment on above: Performed By: #### C VDTBH #### [facility] [address] [place] [address] Dr. Ember Teague WBC 0-2 Abnormal NONE SEEN [facility] Comment on above: Performed By: #### C VDTBH #### [facility] [address] [place] [address] Dr. Ember Teague URIC ACID SERUMon 05-02-2022 Urate [Mass/Vol] 4.4 mg/dL Normal 2.6-6.0 [facility] Comment on above: Performed By: #### C #### [facility] [address] [place] [address] Dr. Ember Teague URINE T PROTEIN CREAT RATIOo n 05-02-2022 Protein (U) [Mass/Vol] 33.7 mg/dL Critically high <=12.0 [facility] Comment on above: Performed By: #### C VDTBH #### [facility] [address] [place] [address] Dr. Ember Teague UR PROT CREAT RAT 0.69 Normal [facility] Comment on above: Performed By: #### C VDTBH #### [facility] [address] [address] [address] Ember Teague URINE CREAT 48.93 mg/dL Normal 20.00-300.00 [facility] Comment on above: Performed By: #### [facility] #### [facility] [address] [address] [address] Ember Teague Vital Signs Date Time Vital Sign Value Performing Clinician Facility 10-15-2023 13:00-0500 Body height 168.91 cm Ron Doreen Other [facility] Other 10-15-2023 13:00-0500 Body mass index (BMI) [Ratio] 29.82 kg/m2 Ron Doreen Other [facility] Other 10-15-2023 13:00-0500 Body temperature 97.5 [degF] Ron Doreen Other [facility] Other 10-15-2023 13:00-0500 Body weight 85.1 kg Ron Doreen Other [facility] Other 10-15-2023 13:00-0500 Diastolic blood pressure 68 mm[Hg] Ron Doreen Other [facility] Other 10-15-2023 13:00-0500 Respiratory rate 18 /min Ron Doreen Other [facility] Other 10-15-2023 13:00-0500 SaO2% (BldA) [Mass fraction] 98 % Ron Doreen Other [facility] Other 10-15-2023 13:00-0500 Systolic blood pressure 113 mm[Hg] Ron Doreen Other [facility] Other 08-27-2023 09:40-0500 Body height 168.91 cm Aziz Bakhous Other [facility] Other 08-27-2023 09:40-0500 Body mass index (BMI) [Ratio] 30.2 kg/m2 Aziz Bakhous Other [facility] Other 08-27-2023 09:40-0500 Body temperature 96.7 [degF] Aziz Bakhous Other [facility] Other 08-27-2023 09:40-0500 Body weight 86.18 kg Aziz Bakhous Other [facility] Other 08-27-2023 09:40-0500 Diastolic blood pressure 72 mm[Hg] Aziz Bakhous Other [facility] Other 08-27-2023 09:40-0500 Respiratory rate 18 /min Aziz Bakhous Other [facility] Other 08-27-2023 09:40-0500 SaO2% (BldA) [Mass fraction] 98 % Aziz Bakhous Other [facility] Other 08-27-2023 09:40-0500 Systolic blood pressure 153 mm[Hg] Aziz Bakhous Other [facility] Other 08-15-2023 10:20-0500 Body height 168.91 cm Ron Doreen Other [facility] Other 08-15-2023 10:20-0500 Body mass index (BMI) [Ratio] 30.2 kg/m2 Ron Doreen Other [facility] Other 08-15-2023 10:20-0500 Body temperature 97.1 [degF] Ron Doreen Other [facility] Other 08-15-2023 10:20-0500 Body weight 86.18 kg Ron Doreen Other [facility] Other 08-15-2023 10:20-0500 Diastolic blood pressure 79 mm[Hg] Ron Doreen Other [facility] Other 08-15-2023 10:20-0500 Respiratory rate 18 /min Ron Doreen Other [facility] Other 08-15-2023 10:20-0500 SaO2% (BldA) [Mass fraction] 98 % Ron Doreen Other [facility] Other 08-15-2023 10:20-0500 Systolic blood pressure 164 mm[Hg] Ron Doreen Other [facility] Other 08-13-2023 15:40-0500 Body height 168.91 cm Ron Doreen Other [facility] Other 08-13-2023 15:40-0500 Body mass index (BMI) [Ratio] 30.24 kg/m2 Ron Doreen Other [facility] Other 08-13-2023 15:40-0500 Body temperature 97.2 [degF] Ron Doreen Other [facility] Other 08-13-2023 15:40-0500 Body weight 86.27 kg Ron Doreen Other [facility] Other 08-13-2023 15:40-0500 Diastolic blood pressure 79 mm[Hg] Ron Doreen Other [facility] Other 08-13-2023 15:40-0500 Respiratory rate 18 /min Ron Doreen Other [facility] Other 08-13-2023 15:40-0500 SaO2% (BldA) [Mass fraction] 98 % Ron Doreen Other [facility] Other 08-13-2023 15:40-0500 Systolic blood pressure 186 mm[Hg] Ron Doreen Other [facility] Other 08-01-2023 13:00-0400 Body height 168.91 cm Ron Doreen Other [facility] Other 08-01-2023 13:00-0400 Body mass index (BMI) [Ratio] 30.55 kg/m2 Ron Doreen Other [facility] Other 08-01-2023 13:00-0400 Body temperature 97.8 [degF] Ron Doreen Other [facility] Other 08-01-2023 13:00-0400 Body weight 87.18 kg Ron Doreen Other [facility] Other 08-01-2023 13:00-0400 Diastolic blood pressure 72 mm[Hg] Ron Doreen Other [facility] Other 08-01-2023 13:00-0400 Respiratory rate 18 /min Ron Doreen Other [facility] Other 08-01-2023 13:00-0400 SaO2% (BldA) [Mass fraction] 98 % Ron Doreen Other [facility] Other 08-01-2023 13:00-0400 Systolic blood pressure 160 mm[Hg] Ron Doreen Other [facility] Other 06-24-2023 11:40-0400 Body height 168.91 cm Ron Doreen Other [facility] Other 06-24-2023 11:40-0400 Body mass index (BMI) [Ratio] 29.89 kg/m2 Ron Doreen Other [facility] Other 06-24-2023 11:40-0400 Body temperature 97.3 [degF] Ron Doreen Other [facility] Other 06-24-2023 11:40-0400 Body weight 85.28 kg Ron Doreen Other [facility] Other 06-24-2023 11:40-0400 Diastolic blood pressure 75 mm[Hg] Ron Doreen Other [facility] Other 06-24-2023 11:40-0400 Respiratory rate 18 /min Ron Doreen Other [facility] Other 06-24-2023 11:40-0400 SaO2% (BldA) [Mass fraction] 99 % Ron Doreen Other [facility] Other 06-24-2023 11:40-0400 Systolic blood pressure 129 mm[Hg] Ron Doreen Other [facility] Other 06-06-2023 15:20-0400 Body height 168.91 cm Ron Doreen Other [facility] Other 06-06-2023 15:20-0400 Body mass index (BMI) [Ratio] 29.92 kg/m2 Ron Doreen Other [facility] Other 06-06-2023 15:20-0400 Body temperature 96.5 [degF] Ron Doreen Other [facility] Other 06-06-2023 15:20-0400 Body weight 85.37 kg Ron Doreen Other [facility] Other 06-06-2023 15:20-0400 Diastolic blood pressure 49 mm[Hg] Ron Doreen Other [facility] Other 06-06-2023 15:20-0400 Respiratory rate 18 /min Ron Doreen Other [facility] Other 06-06-2023 15:20-0400 SaO2% (BldA) [Mass fraction] 99 % Ron Doreen Other [facility] Other 06-06-2023 15:20-0400 Systolic blood pressure 128 mm[Hg] Ron Doreen Other [facility] Other 04-30-2023 11:40-0400 Body height 168.91 cm Ron Doreen Other [facility] Other 04-30-2023 11:40-0400 Body mass index (BMI) [Ratio] 30.52 kg/m2 Ron Doreen Other [facility] Other 04-30-2023 11:40-0400 Body temperature 96.9 [degF] Ron Doreen Other [facility] Other 04-30-2023 11:40-0400 Body weight 87.09 kg Ron Doreen Other [facility] Other 04-30-2023 11:40-0400 Diastolic blood pressure 80 mm[Hg] Ron Doreen Other [facility] Other 04-30-2023 11:40-0400 Respiratory rate 18 /min Ron Doreen Other [facility] Other 04-30-2023 11:40-0400 SaO2% (BldA) [Mass fraction] 98 % Ron Doreen Other [facility] Other 04-30-2023 11:40-0400 Systolic blood pressure 150 mm[Hg] Ron Doreen Other [facility] Other 04-06-2023 09:00-0400 Body height 168.91 cm Ron Doreen Other [facility] Other 04-06-2023 09:00-0400 Body mass index (BMI) [Ratio] 30.36 kg/m2 Ron Doreen Other [facility] Other 04-06-2023 09:00-0400 Body weight 86.64 kg Ron Doreen Other [facility] Other 04-06-2023 09:00-0400 Diastolic blood pressure 54 mm[Hg] Ron Doreen Other [facility] Other 04-06-2023 09:00-0400 Respiratory rate 18 /min Ron Doreen Other [facility] Other 04-06-2023 09:00-0400 SaO2% (BldA) [Mass fraction] 98 % Ron Doreen Other [facility] Other 04-06-2023 09:00-0400 Systolic blood pressure 144 mm[Hg] Ron Doreen Other [facility] Other 04-02-2023 14:40-0400 Body height 168.91 cm Ron Doreen Other [facility] Other 04-02-2023 14:40-0400 Body mass index (BMI) [Ratio] 30.55 kg/m2 Ron Doreen Other [facility] Other 04-02-2023 14:40-0400 Body temperature 97 [degF] Ron Doreen Other [facility] Other 04-02-2023 14:40-0400 Body weight 87.18 kg Ron Doreen Other [facility] Other 04-02-2023 14:40-0400 Diastolic blood pressure 76 mm[Hg] Ron Doreen Other [facility] Other 04-02-2023 14:40-0400 Respiratory rate 18 /min Ron Doreen Other [facility] Other 04-02-2023 14:40-0400 SaO2% (BldA) [Mass fraction] 98 % Ron Doreen Other [facility] Other 04-02-2023 14:40-0400 Systolic blood pressure 183 mm[Hg] Ron Doreen Other [facility] Other 03-07-2023 09:20-0400 Body height 168.91 cm Ron Doreen Other [facility] Other 03-07-2023 09:20-0400 Body mass index (BMI) [Ratio] 30.52 kg/m2 Ron Doreen Other [facility] Other 03-07-2023 09:20-0400 Body temperature 97.1 [degF] Ron Doreen Other [facility] Other 03-07-2023 09:20-0400 Body weight 87.09 kg Ron Doreen Other [facility] Other 03-07-2023 09:20-0400 Diastolic blood pressure 72 mm[Hg] Ron Doreen Other [facility] Other 03-07-2023 09:20-0400 Respiratory rate 18 /min Ron Doreen Other [facility] Other 03-07-2023 09:20-0400 SaO2% (BldA) [Mass fraction] 97 % Ron Doreen Other [facility] Other 03-07-2023 09:20-0400 Systolic blood pressure 130 mm[Hg] Ron Doreen Other [facility] Other 12-20-2022 13:20-0400 Body height 168.91 cm Ron Doreen Other [facility] Other 12-20-2022 13:20-0400 Body mass index (BMI) [Ratio] 30.68 kg/m2 Ron Doreen Other [facility] Other 12-20-2022 13:20-0400 Body temperature 97.1 [degF] Ron Doreen Other [facility] Other 12-20-2022 13:20-0400 Body weight 87.54 kg Ron Doreen Other [facility] Other 12-20-2022 13:20-0400 Diastolic blood pressure 72 mm[Hg] Ron Doreen Other [facility] Other 12-20-2022 13:20-0400 Respiratory rate 18 /min Ron Doreen Other [facility] Other 12-20-2022 13:20-0400 SaO2% (BldA) [Mass fraction] 99 % Ron Doreen Other [facility] Other 12-20-2022 13:20-0400 Systolic blood pressure 139 mm[Hg] Ron Doreen Other [facility] Other 11-05-2022 14:00-0500 Body height 168.91 cm Ron Doreen Other [facility] Other 11-05-2022 14:00-0500 Body mass index (BMI) [Ratio] 30.59 kg/m2 Ron Doreen Other [facility] Other 11-05-2022 14:00-0500 Body temperature 96.8 [degF] Ron Doreen Other [facility] Other 11-05-2022 14:00-0500 Body weight 87.27 kg Ron Doreen Other [facility] Other 11-05-2022 14:00-0500 Diastolic blood pressure 72 mm[Hg] Ron Doreen Other [facility] Other 11-05-2022 14:00-0500 Respiratory rate 18 /min Ron Doreen Other [facility] Other 11-05-2022 14:00-0500 SaO2% (BldA) [Mass fraction] 98 % Rno Doreen Other [facility] Other 11-05-2022 14:00-0500 Systolic blood pressure 157 mm[Hg] Ron Doreen Other [facility] Other 09-27-2022 16:00-0500 Body height 168.91 cm Jana Monson Other [facility] Other 09-27-2022 16:00-0500 Body mass index (BMI) [Ratio] 30.55 kg/m2 Jana Monson Other [facility] Other 09-27-2022 16:00-0500 Body temperature 96.8 [degF] Jana Monson Other [facility] Other 09-27-2022 16:00-0500 Body weight 87.18 kg Jana Monson Other [facility] Other 09-27-2022 16:00-0500 Diastolic blood pressure 73 mm[Hg] Jana Monson Other [facility] Other 09-27-2022 16:00-0500 Respiratory rate 18 /min Jana Monson Other [facility] Other 09-27-2022 16:00-0500 SaO2% (BldA) [Mass fraction] 98 % Jana Monson Other [facility] Other 09-27-2022 16:00-0500 Systolic blood pressure 159 mm[Hg] Jana Monson Other [facility] Other 08-22-2022 12:00-0500 Body height 168.91 cm Ron Doreen Other [facility] Other 08-22-2022 12:00-0500 Body mass index (BMI) [Ratio] 30.65 kg/m2 Ron Doreen Other [facility] Other 08-22-2022 12:00-0500 Body temperature 96.9 [degF] Ron Doreen Other [facility] Other 08-22-2022 12:00-0500 Body weight 87.45 kg Ron Doreen Other [facility] Other 08-22-2022 12:00-0500 Diastolic blood pressure 75 mm[Hg] Ron Doreen Other [facility] Other 08-22-2022 12:00-0500 Respiratory rate 18 /min Ron Doreen Other [facility] Other 08-22-2022 12:00-0500 SaO2% (BldA) [Mass fraction] 96 % Ron Doreen Other [facility] Other 08-22-2022 12:00-0500 Systolic blood pressure 121 mm[Hg] Ron Doreen Other [facility] Other 05-08-2022 10:20-0400 Body height 168.91 cm Ron Doreen Other [facility] Other 05-08-2022 10:20-0400 Body mass index (BMI) [Ratio] 31.54 kg/m2 Ron Doreen Other [facility] Other 05-08-2022 10:20-0400 Body temperature 97.6 [degF] Ron Doreen Other [facility] Other 05-08-2022 10:20-0400 Body weight 89.99 kg Ron Doreen Other [facility] Other 05-08-2022 10:20-0400 Diastolic blood pressure 68 mm[Hg] Ron Doreen Other [facility] Other 05-08-2022 10:20-0400 Respiratory rate 18 /min Ron Doreen Other [facility] Other 05-08-2022 10:20-0400 SaO2% (BldA) [Mass fraction] 98 % Ron Doreen Other [facility] Other 05-08-2022 10:20-0400 Systolic blood pressure 131 mm[Hg] Ron Doreen Other [facility] Other 01-18-2022 10:20-0400 Body height 168.91 cm Ron Doreen Other [facility] Other 01-18-2022 10:20-0400 Body mass index (BMI) [Ratio] 31 kg/m2 Ron Doreen Other [facility] Other 01-18-2022 10:20-0400 Body temperature 96.4 [degF] Ron Doreen Other [facility] Other 01-18-2022 10:20-0400 Body weight 88.45 kg Ron Doreen Other [facility] Other 01-18-2022 10:20-0400 Diastolic blood pressure 74 mm[Hg] Ron Doreen Other [facility] Other 01-18-2022 10:20-0400 Respiratory rate 18 /min Ron Doreen Other [facility] Other 01-18-2022 10:20-0400 SaO2% (BldA) [Mass fraction] 97 % Ron Doreen Other [facility] Other 01-18-2022 10:20-0400 Systolic blood pressure 170 mm[Hg] Ron Doreen Other [facility] Other Encounters Encounter Date Encounter Type Care Provider Facility Start: 10-22-2023 End: 10-22-2023 ambulatory GA CRESPO Not Available Start: 10-15-2023 End: 10-15-2023 ambulatory Ron Doreen Other [facility] Other Start: 10-15-2023 Office outpatient visit 15 minutes Ron Doreen [facility] Start: 10-08-2023 End: 10-08-2023 ambulatory Aziz Bakhous Other [facility] Other Start: 10-08-2023 Telephone encounter Aziz Bakhous [facility] Start: 09-15-2023 End: 09-15-2023 ambulatory Ron Doreen Other [facility] Other Start: 09-15-2023 Telephone encounter Ron Doreen [facility] Start: 09-09-2023 End: 09-09-2023 ambulatory Ron Doreen Other [facility] Other Start: 09-09-2023 Telephone encounter Ron Doreen [facility] Start: 08-27-2023 (INJECTION) INJECTION Aziz Bakhous [facility] Start: 08-27-2023 End: 08-27-2023 ambulatory Aziz Bakhous Other [facility] Other Start: 08-15-2023 (INJECTION) INJECTION Ron Doreen [facility] Start: 08-15-2023 End: 08-15-2023 ambulatory Ron Doreen Other [facility] Other Start: 08-13-2023 (INJECTION) INJECTION Ron Doreen [facility] Start: 08-13-2023 End: 08-13-2023 ambulatory Ron Doreen Other [facility] Other Start: 08-01-2023 End: 08-01-2023 ambulatory Ron Doreen Other [facility] Other Start: 08-01-2023 Office outpatient visit 15 minutes Ron Doreen [facility] Start: 06-24-2023 End: 06-24-2023 ambulatory Ron Doreen Other [facility] Other Start: 06-24-2023 Office outpatient visit 10 minutes Ron Doreen [facility] Start: 06-06-2023 End: 06-06-2023 ambulatory Ron Doreen Other [facility] Other Start: 06-06-2023 Office outpatient visit 15 minutes Ron Doreen [facility] Start: 04-30-2023 End: 04-30-2023 ambulatory Ron Doreen Other [facility] Other Start: 04-30-2023 Office outpatient visit 15 minutes Ron Doreen [facility] Start: 04-06-2023 (INJECTION) INJECTION Ron Doreen [facility] Start: 04-06-2023 End: 04-06-2023 ambulatory Ron Doreen Other [facility] Other Start: 04-06-2023 Telephone encounter Ron Doreen [facility] Start: 04-02-2023 End: 04-02-2023 ambulatory Ron Doreen Other [facility] Other Start: 04-02-2023 Office outpatient visit 15 minutes Ron Doreen [facility] Start: 04-02-2023 Telephone encounter Ron Doreen [facility] Start: 03-07-2023 End: 03-07-2023 ambulatory Ron Doreen Other [facility] Other Start: 03-07-2023 Office outpatient visit 15 minutes Ron Doreen [facility] Start: 01-22-2023 End: 01-23-2023 ambulatory RON DOREEN Facility:[facility] Start: 12-20-2022 End: 12-20-2022 ambulatory Ron Doreen Other [facility] Other Start: 12-20-2022 Office outpatient visit 15 minutes Ron Doreen [facility] Start: 12-17-2022 End: 12-18-[address] DHRUV GUTIERRES . Facility:[facility] Start: 12-10-2022 End: 12-11-2022 ambulatory RON DOREEN Facility:[facility] Start: 11-20-2022 End: 11-21-[address] BENI APARICIO Facility:[facility] Start: 11-05-2022 End: 11-05-2022 ambulatory Ron Doreen Other [facility] Other Start: 11-05-2022 Office outpatient visit 15 minutes Ron Doreen [facility] Start: 10-29-2022 End: 10-30-[address] JANA MONSON Facility:[facility] Start: 10-24-2022 End: 10-24-[address] LILLIAN ACOSTA . Facility:[facility] Start: 10-24-2022 End: 10-25-[address] DHRUV GUTIERRES . Facility:[facility] Start: 09-27-2022 End: 09-27-2022 ambulatory Jana Monson Other [facility] Other Start: 09-27-2022 Office outpatient visit 15 minutes Jana Monson [facility] Start: 09-18-2022 End: 09-19-2022 ambulatory RON DOREEN Facility:[facility] Start: 09-11-2022 End: 09-11-[address] DHRUV GUTIERRES . Facility:[facility] Start: 08-22-2022 End: 08-22-2022 ambulatory Ron Doreen Other [facility] Other Start: 08-22-2022 Office outpatient visit 15 minutes Ron Doreen [facility] Start: 08-13-2022 End: 08-14-2022 ambulatory RON DOREEN Facility:[facility] Start: 06-25-2022 End: 06-26-[address] DHRUV GUTIERRES . Facility:[facility] Start: 06-18-2022 End: 06-18-[address] DHRUV GUTIERRES . Facility:[facility] Start: 06-01-2022 End: 06-02-[address] YANET HUERTA Facility:[facility] Start: 05-28-2022 End: 05-28-2022 ambulatory Ron Doreen Other [facility] Other Start: 05-28-2022 Telephone encounter Ron Doreen [facility] Start: 05-21-2022 End: 05-22-[address] DHRUV GUTIERRES . Facility:[facility] Start: 05-16-2022 End: 05-16-2022 ambulatory Ron Doreen Other [facility] Other Start: 05-16-2022 Telephone encounter Ron Doreen [facility] Start: 05-10-2022 End: 05-10-2022 ambulatory Ron Doreen Other [facility] Other Start: 05-10-2022 Telephone encounter Ron Doreen [facility] Start: 05-08-2022 End: 05-08-2022 ambulatory Ron Doreen Other [facility] Other Start: 05-08-2022 Office outpatient visit 25 minutes Ron Doreen [facility] Start: 05-02-2022 End: 05-03-2022 ambulatory RON DOREEN Facility: Start: 04-24-2022 End: 04-24-2022 ambulatory Mary Anne Ackerman Other [facility] Other Start: 04-24-2022 Telephone encounter Mary Anne Ackerman [facility] Start: 01-18-2022 End: 01-18-2022 ambulatory Ron Doreen Other [facility] Other Start: 01-18-2022 Office outpatient visit 25 minutes Ron Doreen [facility] Start: 05-21-2017 End: 05-22-2017 Ambulatory DEFAULT PHYSICIAN Facility:[facility] Payers Date Payer Category Payer Medicare [id number] 1945 Unknown [id number] 2.16.84 [id number] 1945 Unknown [id number] 2.16.84 [id number] 1945 Unknown [id number] 2.16.84 [id number] 1944 Unknown [id number] 2.16.84 [id number] 1944 Unknown [id number] 2.16.84 [id number] 1944 Unknown [id number] 2.16.84 0.1.854634.3.579.2.593 1944 Unknown [id number] 2.16.84 0.1.490887.3.579.2.593 1944 Unknown [id number] 2.16.84 0.1.854616.3.579.2.593 1944 Unknown [id number] 2.16.84 0.1.936683.3.579.2.593 1944 Unknown [id number] 2.16.84 0.1.732034.3.579.2.593 1944 Unknown [id number] 2.16.84 0.1.788324.3.579.2.593 1944 Unknown [id number] 2.16.84 0.1.645453.3.579.2.593 1944 Unknown [id number] 2.16.84 0.1.840637.3.579.2.593 1944 Unknown [id number] 2.16.84 0.1.842818.3.579.2.593 1944 Unknown [id number] 2.16.84 0.1.602385.3.579.2.593 1944 Unknown [id number] 2.16.84 0.1.828346.3.579.2.593 1944 Unknown [id number] 2.16.84 [id number] Unknown Social History Date Type Detail Facility Unknown if ever smoked [facility] Other Sex Assigned At Sex Assigned At Bir th [facility] Other Clinical Notes 01-18-2022 to 10-15-2023 Note Date & Type Note Facility 10-15-2023 Evaluation note Encounter Date Diagnosis Assessment Notes Oct, Anemia of renal disease (ICD-10 - D63.1) Hb is below the target goal and has adequate Iron stores. Continue oral Iron. Change Retacrit every 3 weeks. 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 Her serum Creatinine is 2.5 mg/dl above her baseline1.7-2 mg d/l. Abdomen function has declined either due to the progression of CKD or hemodynamic changes in setting of better blood pressure control. I discussed with her the importance of good DM and HTN control to slow down the progression of CKD. She had renal ultrasound in 2017 which showed a small right renal cyst no evidence of kidney mass hydronephrosis or kidney stones. Oct, Hypertensive chronic kidney disease with stage 1 through stage 4 chronic kidney disease, or unspecified chronic kidney disease (ICD-10 - I12.9) Her Bp is controlled. She appears to be euvolemic. Continue current dose of carvedilol, Lasix and Lisinopril. She was advised to check home blood pressure and keep records. We will add low-dose of amlodipine in future if blood pressure continues to run high in the office. Oct, Idiopathic chronic gout without tophus, unspecified site (ICD-10 - M1A.00X0) She has gout and takes Allopurinol for prophylaxis. Monitor uric acid every 4 to 6 months. Oct, Type 2 diabetes mellitus with diabetic chronic [...] goal. Continue Vit D 5000 units daily Oct, Hyperkalemia (ICD-10 - E87.5) She has hyperkalemia likely due to the CKD and lisinopril. Her potassium improved with dietary restriction and Lasix. [facility] Other 12-04-2023 Evaluation note* Encounter Date Diagnosis Assessment Notes Treatment Notes Treatment Clinical Notes Sep, Anemia of renal disease (ICD-10 - D63.1) Sep, Hypertensive chronic kidney disease with stage 1 through stage 4 chronic kidney disease, or unspecified chronic kidney disease (ICD-10 - I12.9) Sep, Type 2 diabetes mellitus with diabetic chronic kidney disease (ICD-10 - E11.22) Sep, CKD (chronic kidney disease) stage 4, GFR 15-29 ml/min (ICD-10 - N18.4) [facility] Other 11-21-2023 Evaluation note* Encounter Date Diagnosis Assessment Notes Treatment Notes Treatment Clinical Notes Aug, Anemia of renal disease (ICD-10 - D63.1) Aug, CKD (chronic kidney disease) stage 4, GFR 15-29 ml/min (ICD-10 - N18.4) [facility] Other 11-09-2023 Evaluation note* Encounter Date Diagnosis [...] of kidney mass hydronephrosis or kidney stones. [facility] Other 10-26-2023 Evaluation note* Encounter Date Diagnosis [...] potassium improved with dietary restriction and Lasix. [facility] Other 09-18-2023 Evaluation note* Encounter Date Diagnosis [...] potassium improved with dietary restriction and Lasix. [facility] Other 08-31-2023 Evaluation note* Encounter Date Diagnosis [...] potassium improved with dietary restriction and Lasix. [facility] Other 07-25-2023 Evaluation note* Encounter Date Diagnosis [...] to normal with dietary restriction and Lasix. [facility] Other 07-01-2023 Evaluation note* Encounter Date Diagnosis Assessment Notes Treatment Notes Treatment Clinical Notes Apr, CKD (chronic kidney disease) stage 4, GFR 15-29 ml/min (ICD-10 - N18.4) Apr, Anemia of renal disease (ICD-10 - D63.1) [facility] Other 06-27-2023 Evaluation note* Encounter Date Diagnosis [...] to normal with dietary restriction and Lasix. [facility] Other 06-01-2023 Evaluation note* Encounter Date Diagnosis [...] potassium diet and provide information about it. [facility] Other 03-16-2023 Evaluation note* Encounter Date Diagnosis [...] to Continue Vit D 5000 units daily [facility] Other 01-30-2023 Evaluation note* Encounter Date Diagnosis [...] to Continue Vit D 5000 units daily [facility] Other 12-22-2022 Evaluation note* Encounter Date Diagnosis [...] to Continue Vit D 5000 units daily [facility] Other 11-16-2022 Evaluation note* Encounter Date Diagnosis [...] to Continue Vit D 5000 units daily [facility] Other 08-04-2022 Evaluation note* Encounter Date Diagnosis Assessment Notes Treatment Notes Treatment Clinical Notes May, Hypertensive chronic kidney disease with stage 1 through stage 4 chronic kidney disease, or unspecified chronic kidney disease (ICD-10 - I12.9) [facility] Other 08-02-2022 Evaluation note* Encounter Date Diagnosis [...] to Continue Vit D 5000 units daily [facility] Other 07-19-2022 Evaluation note* Encounter Date Diagnosis Assessment Notes Treatment Notes Treatment Clinical Notes Apr, Hypertensive chronic kidney disease with stage 1 through stage 4 chronic kidney disease, or unspecified chronic kidney disease (ICD-10 - I12.9) [facility] Other 04-14-2022 Evaluation note* Encounter Date Diagnosis [...] to take Vit D 1000 units daily [facility] Other Evaluation noteNo InformationNort [facility] Other History general Narrative - Reported* Type [...] History SEE ABOVE Hospitalization History COVID 09/2020 [facility] Other History general Narrative - Reported* Type [...] History SEE ABOVE Hospitalization History COVID 09/2020 [facility] Other [facility] general Narrative - Reported* Type Description Date [...] History SEE ABOVE Hospitalization History COVID 09/2020 [facility] Other History general Narrative - ReportedNortFuninhand Other Summary Purpose Family History No Family History Records FoundNo Family History Records FoundNo Family History Records Found Advance Directives No Advanced Directives Records FoundNo Advanced Directives Records FoundNo Advanced Directives Records Found Additional Source Comments INFORMATION SOURCE (unrecogn ized section and content) DATE CREATED AUTHOR 04/02/2018 [facility] DATE CREATED AUTHOR AUTHOR'S ORGANIZ ATION 01/27/2023 [facility] DATE CREATED AUTHOR AUTHOR'S ORGANIZ ATION 10/23/2023 [facility] EPIC REASON FOR VISIT (unrecogniz ed section and content) CKD and AnemiaREFILLCKD and AnemiaREFILL FOR 100 DAY RXNo InformationClinicalCKD and AnemiaRENAL 6 WK RETACRITCKD and AnemiaCKD and AnemiaCKD and AnemiaCKD and AnemiaNo InformationNo InformationRETACRIT INJECTIONCKD and AnemiaCKD and HTNAnemia and CKDAnemia and CKDRENAL 2 WK INJ / RETACRIT - NURSERENAL RETACRIT INJECTIONRENAL 2 WK INJ RETACRITLAB ORDERSCRITICAL LAB RESULTRS APPTCKD and Anemia FOR RECORDS PERTAINING TO PATIENTS WHO ARE [...] BE BASED ON THE PRIMARY CLINICAL RECORDS. [employer] [facility]. provides no warranty or guarantee of the accuracy or completeness of information in this document.
[2023-10-29 07:27] LABS: Hematocrit 30.5 % (36.0-48.0); Hemoglobin 9.7 g/dL (12.0-16.0); Mean Corpuscular HGB Conc 31.8 g/dL (29.9-35.2); Mean Corpuscular Hemoglobin 30.3 pg (26.7-34.0); Mean Corpuscular Volume 95.3 fL (81.0-99.0); Mean Platelet Volume 9.4 fL (9.5-13.5); Platelet Count 162 10^3/uL (150-450); Red Cell Distribution Width 16.8 % (11.0-15.0); White Blood Count 5.1 10^3/uL (4.0-11.0)
[2023-10-29 09:50] LABS: Albumin Level 3.4 g/dL (3.4-5.0); Anion Gap 13.7; BUN Creatinine Ratio 27.3; Carbon Dioxide 23.4 mmol/L (21.0-32.0); Chloride 111 mmol/L (98-107); Estimated GFR (African America 36 (>=60); Estimated GFR (Non-African Ame 30 (>=60); Glucose 136 mg/dL (74-106); Phosphorus 3.9 mg/dL (2.6-4.7); Potassium 5.1 mmol/L (3.5-5.1); Sodium 143 mmol/L (136-145)
== END 2023-10-29 07:17 | disposition home or self-care (01) ==
LOC: LAB 07:17
PROVIDERS: PCP Family Medicine; Visit Provider Internal Medicine
DX: I12.9 Hypertensive chronic kidney disease with stage 1 through stage 4 chronic kidney disease, or unspecified chronic kidney disease (principal); D63.1 Anemia in chronic kidney disease
CPT/HCPCS: 36415; 80069; 85027

== ENCOUNTER 2023-10-31 09:00 | Outpatient (OUT) | payer MEDICARE, SELFPAY ==
--- OUTSIDE RECORDS SUMMARY | 2023-10-29 08:34 | XMS_ITS | CCD ---
Author Name Unknown Address [address] [place] [address] Organization [facility] Care Team Providers Care Fire Management Specialist Name Role Phone PHYSICIAN, DEFAULT Unavailable Unavailable PHYSICIAN, DEFAULT Unavailable Unavailable Doreen, Ron Unavailable Ósacr Ackermanduc Unavailable Iona Varinderreinaldo Unavailable BHAVIK ., [...] Facility (20 sources) amLODIPine Drug Allergy Unknown [facility] Other (18 sources) Amoxicillin / Clavulanate Drug Allergy Unknown [facility] Other (20 sources) Contrast media Propensity to adverse reactions Unknown [facility] Other (2 sources) Doxazosin; Translations: [doxazosin] Drug Allergy Unknown [facility] Other (20 sources) Sulfamethoxazole / Trimethoprim Drug Allergy Unknown [facility] Other (20 sources) Doxazosin Drug Allergy Unknown [facility] Other (9 sources) Amoxicillin / Clavulanate; Translations: [Augmentin] Drug Allergy 11-16-19 16 Unknown [facility] (1 source) amLODIPine Drug Allergy 04-25-20 14 [facility] (1 source) Sulfamethoxazole / Trimethoprim Drug Allergy 03-09-20 13 [facility] Medications Current Medications Medication Drug [...] Active docusate sodium 50 mg / sennosides, mcfp 8.6 mg oral tablet (3 sources) take 1 tablet by mouth every twelve hours Sennosides-Docusate Sodium 8.6-50 MG 1 tablet in the evening as needed Orally every 12 hours Active epoetin johnna-epbx 17447 UNT/ML Injectable Solution [Retacrit] (14 sources) Retacrit 18354 U NIT/ML as directed Injection Active ferrous [...] a day Active take 2 tablets by [facility] every twenty-four hours Liothyronine Sodium 5 MCG 2 tablets on a n empty stomach Orally Once a day Active take 2 tablets by [facility] every twenty-four hours lisinopril 10 mg oral [...] tablet Orally Once a day Active retacrit 69381 unit/ml solution (3 sources) Retacrit 59621 UNIT/ML as directed Injection Active Sennosides-Docusate Sodium [...] [Volume fraction] 28.8 % Critically low 36.0-48.0 [facility] Comment on above: Performed By: #### H H #### [facility] [address] [place] [address] Dr. Ember Teague Hemoglobin (Bld) [Mass/Vol] 9.6 g/dL Critically low 12.0-16.0 [facility] Comment on above: Performed By: #### H H #### [facility] [address] [place] [address] Dr. Ember Teague MCH (RBC) [Entitic mass] 30.7 pg Normal 26.7-34.0 [facility] Comment on above: Performed By: #### H H #### [facility] [address] [place] [address] Dr. Ember Teague MCHC (RBC) [Mass/Vol] 33.3 g/dL Normal 29.9-35.2 [facility] Comment on above: Performed By: #### H H #### [facility] [address] [place] [address] Dr. Ember Teague MCV (RBC) [Entitic vol] 92.0 fL Normal 81.0-99.0 [facility] Comment on above: Performed By: #### H H #### [facility] [address] [place] [address] Dr. Ember Teague PLT 214 103/ul Normal 150-450 [facility] Comment on above: Performed By: #### H H #### [facility] [address] [place] [address] Dr. Ember Teague RBC 3.13 106/ul Critically low 4.20-5.40 [facility] Comment on above: Performed By: #### H H #### [facility] [address] [place] [address] Dr. Ember Teague WBC 7.4 103/ul Normal 4.0-11.0 [facility] Comment on above: Performed By: #### H H #### [facility] [address] [place] [address] Dr. Ember Teague MAGNESIUMon 01-22-2023 Magnesium [Mass/Vol] 1.8 mg/dL Normal 1.8-2.4 [facility] Comment on above: Performed By: #### M G, RENAL #### [facility] [address] [place] [address] Dr. Ember Teague RENAL FUNCTION PANELon 01-22 Albumin [Mass/Vol] 3.6 g/dL Normal 3.4-5.0 [facility] Comment on above: Performed By: #### M G, RENAL #### [facility] [address] [address] [address] Ember Teague Calcium [Mass/Vol] 9.7 mg/dL Normal 8.5-10.1 [facility] Comment on above: Performed By: #### M G, RENAL #### [facility] [address] [address] [address] Ember Teague Chloride [Moles/Vol] 105 mmol/L Normal 98-107 [facility] Comment on above: Performed By: #### M G, RENAL #### [facility] [address] [place] [address] Dr. Ember Teague CO2 [Moles/Vol] 22.6 mmol/L Normal 21.0-32.0 [facility] Comment on above: Performed By: #### M Girish, RENAL #### [facility] [address] [address] [address] Ember Teague Creatinine [Mass/Vol] 2.18 mg/dL Critically high 0.55-1.02 [facility] Comment on above: Performed By: #### Lico Stout, RENAL #### [facility] [address] [place] [address] Dr. Ember Teague EGFR-AF BENINESE 26 mL/min/1.73m2 Critically low >=60 [facility] Comment on above: Performed By: #### Lico Stout, RENAL #### [facility] [address] [address] [address] Ember Teague EGFR-NON AF BENINESE 22 mL/min/1.73m2 Critically low >=60 [facility] Comment on above: Performed By: #### M G, RENAL #### [facility] [address] [address] [address] Ember Teague Glucose [Mass/Vol] 134 mg/dL Critically high 74-106 [facility] Comment on above: Performed By: #### M G, RENAL #### [facility] [address] [address] [address] Ember Teague Phosphate [Mass/Vol] 4.6 mg/dL Normal 2.6-4.7 [facility] Comment on above: Performed By: #### M G, RENAL #### [facility] [address] [address] [address] Ember Teague Potassium [Moles/Vol] 5.1 mmol/L Normal 3.5-5.1 [facility] Comment on above: Performed By: #### M G, RENAL #### [facility] [address] [address] [address] Ember Teague Sodium [Moles/Vol] 138 mmol/L Normal 136-145 [facility] Comment on above: Performed By: #### M G, RENAL #### [facility] [address] [address] [address] Ember Teague Urea nitrogen [Mass/Vol] 61.0 mg/dL Critically high 7.0-18.0 [facility] Comment on above: Performed By: #### M G, RENAL #### [facility] [address] [address] [address] Ember Teague MG MAMM SCREEN 3D MAY CADon 12-17-2022 MG MAMM SCREEN 3D MAY CAD Patient: KYLAH BERGER Exam Date: 12/17/2022 : 1945 Gender:F Ordering : DR DHRUV GUTIERRES . Admission #: [id number] Family : Order #: [id number] CLICK HERE TO VIEW EXAM RADIOLOGY REPORT [...] lung cancer at age 61. LOCATION: [facility] BREAST COMPOSITION: Scattered areas fibroglandular density. [...] MD on 12/17/2022 at 11:59 Normal [facility] FERRITINon 12-10-2022 Ferritin [Mass/Vol] 681.0 ng/mL Critically high 8.0-252.0 [facility] Comment on above: Performed By: #### P THINT #### [facility] [address] [place] [address] Dr. Ember Teague HEMOGRAM AND PLATELon 2022 Hematocrit (Bld) [Volume fraction] 27.1 % Critically low 36.0-48.0 [facility] Comment on above: Performed By: #### C VDTBH #### [facility] [address] [place] [address] Dr. Ember Teague Hemoglobin (Bld) [Mass/Vol] 9.7 g/dL Critically low 12.0-16.0 [facility] Comment on above: Performed By: #### C VDTBH #### [facility] [address] [place] [address] Dr. Ember Teague MCH (RBC) [Entitic mass] 31.4 pg Normal 26.7-34.0 [facility] Comment on above: Performed By: #### C VDTBH #### [facility] [address] [place] [address] Dr. Ember Teague MCHC (RBC) [Mass/Vol] 35.8 g/dL Critically high 29.9-35.2 [facility] Comment on above: Performed By: #### C VDTBH #### [facility] [address] [place] [address] Dr. Ember Teague MCV (RBC) [Entitic vol] 87.7 fL Normal 81.0-99.0 [facility] Comment on above: Performed By: #### C VDTBH #### [facility] [address] [address] [address] Ember Teague PLT 218 103/ul Normal 150-450 [facility] Comment on above: Performed By: #### C VDTBH #### [facility] [address] [place], [place] [address] Dr. Ember Teague RBC 3.09 106/ul Critically low 4.20-5.40 [facility] Comment on above: Performed By: #### C VDTBH #### [facility] [address] [address] [address] Ember Teague WBC 6.6 103/ul Normal 4.0-11.0 [facility] Comment on above: Performed By: #### C VDTBH #### [facility] [address] [place] [address] Dr. Ember Teague IRON AND TIBCon 12-10-2022 % SATURATION 30.2 % Normal [facility] Comment on above: Performed By: #### P THINT #### [facility] [address] [address] [address] Ember Teague Iron [Mass/Vol] 84.0 ug/dL Normal 50.0-170.0 [facility] Comment on above: Performed By: #### P THINT #### [facility] [address] [place] [address] Dr. Ember Teague TIBC DIRECT 278.0 ug/dL Normal 250.0-450.0 [facility] Comment on above: Performed By: #### P THINT #### [facility] [address] [address] [address] Ember Teague XR FOOT MAY MIN [...] BENI APARICIO Date: 2022-11-20 14:03 Normal [facility] HEMOGRAM AND PLATELon 2022 Hematocrit (Bld) [Volume fraction] 27.7 % Critically low 36.0-48.0 [facility] Comment on above: Performed By: #### R ENAL #### [facility] [address] [place] [address] Dr. Ember Teague Hemoglobin (Bld) [Mass/Vol] 10.0 g/dL Critically low 12.0-16.0 [facility] Comment on above: Performed By: #### R ENAL #### [facility] [address] [place] [address] Dr. Ember Teague MCH (RBC) [Entitic mass] 31.6 pg Normal 26.7-34.0 [facility] Comment on above: Performed By: #### R ENAL #### [facility] [address] [place] [address] Dr. Ember Teague MCHC (RBC) [Mass/Vol] 36.1 g/dL Critically high 29.9-35.2 [facility] Comment on above: Performed By: #### R ENAL #### [facility] [address] [place] [address] Dr. Ember Teague MCV (RBC) [Entitic vol] 87.7 fL Normal 81.0-99.0 [facility] Comment on above: Performed By: #### R ENAL #### [facility] [address] [place] [address] Dr. Ember Teague PLT 182 103/ul Normal 150-450 [facility] Comment on above: Performed By: #### R ENAL #### [facility] [address] [place] [address] Dr. Ember Teague RBC 3.16 106/ul Critically low 4.20-5.40 [facility] Comment on above: Performed By: #### R ENAL #### [facility] [address] [place] [address] Dr. Ember Teague WBC 6.8 103/ul Normal 4.0-11.0 [facility] Comment on above: Performed By: #### R ENAL #### [facility] [address] [place] [address] Dr. Ember Teague PROF CHEM 8 (BAS METB)on Anion gap [Moles/Vol] 17.6 mmol/L Normal [facility] Comment on above: Performed By: #### C VDTBH #### [facility] [address] [place] [address] Dr. Ember Teague Calcium [Mass/Vol] 9.0 mg/dL Normal 8.5-10.1 [facility] Comment on above: Performed By: #### C VDTBH #### [facility] [address] [place] [address] Dr. Ember Teague Chloride [Moles/Vol] 104 mmol/L Normal 98-107 [facility] Comment on above: Performed By: #### C VDTBH #### [facility] [address] [place] [address] Dr. Ember Teague CO2 [Moles/Vol] 22.2 mmol/L Normal 21.0-32.0 [facility] Comment on above: Performed By: #### C VDTBH #### [facility] [address] [place] [address] Dr. Ember Teague Creatinine [Mass/Vol] 2.03 mg/dL Critically high 0.55-1.02 [facility] Comment on above: Performed By: #### C VDTBH #### [facility] [address] [place] [address] Dr. Ember Teague EGFR-AF BENINESE 29 mL/min/1.73m2 Critically low >=60 [facility] Comment on above: Performed By: #### C VDTBH #### [facility] [address] [place], [place] [id number] Dr. Ember Teague EGFR-NON AF BENINESE 24 mL/min/1.73m2 Critically low >=60 [facility] Comment on above: Performed By: #### C VDTBH #### [facility] [address] [place] [address] Dr. Ember Teague Glucose [Mass/Vol] 154 mg/dL Critically high 74-106 [facility] Comment on above: Performed By: #### C VDTBH #### [facility] [address] [place] [address] Dr. Ember Teague Potassium [Moles/Vol] 4.8 mmol/L Normal 3.5-5.1 [facility] Comment on above: Performed By: #### C VDTBH #### [facility] [address] [place] [address] Dr. Ember Teague Sodium [Moles/Vol] 139 mmol/L Normal 136-145 [facility] Comment on above: Performed By: #### C VDTBH #### [facility] [address] [place] [address] Dr. Ember Teague Urea nitrogen [Mass/Vol] 43.0 mg/dL Critically high 7.0-18.0 [facility] Comment on above: Performed By: #### C VDTBH #### [facility] [address] [place] [address] Dr. Ember Teague Urea nitrogen/Creatinine [Mass ratio] 21.2 mg/mg Normal [facility] Comment on above: Performed By: #### C VDTBH #### [facility] [address] [place] [address] Dr. Ember Teague CULTURE SPUTUMon 10-24-2022 CULTURE SPUTUM Culture Observations : Beta lactamase positive Isolate 1 Haemophilus influenzae Moderate growth of Normal [facility] Comment on above: Performed By: #### R ENAL #### [facility] [address] [place] [address] Dr. Ember Teague SPUTUM GRAM STAINon 10-24-19 COMMENTS Normal [facility] Comment on above: Performed By: #### R ENAL #### [facility] [address] [address] [address] Ember Teague DIPHTHEROIDS Normal [facility] Comment on above: Performed By: #### R ENAL #### [facility] [address] [address] [address] Ember Teague EPITHELIALS >25 Normal [facility] Comment on above: Performed By: #### R ENAL #### [facility] [address] [address] [address] Ember Teague FUNGAL ELEMENTS Normal [facility] Comment on above: Performed By: #### R ENAL #### [facility] [address] [address] [address] Ember Teague GRAM NEG BACILLI [facility] Comment on above: Performed By: #### R ENAL #### [facility] [address] [address] [address] Ember Teague GRAM NEG DIPPLOCOCCI FEW Normal [facility] Comment on above: Performed By: #### R ENAL #### [facility] [address] [address] [address] Ember Teague GRAM POS BACILLI FEW [facility] Comment on above: Performed By: #### R ENAL #### [facility] [address] [address] [address] Ember Teague GRAM POSITIVE COCCI MANY Normal [facility] Comment on above: Performed By: #### R ENAL #### [facility] [address] [address] [address] Ember Teague WBC (Bld) [#/Vol] 10*3/uL Normal [facility] Comment on above: Performed By: #### R ENAL #### [facility] [address] [address] [address] Ember Teague XR CHEST 2 Von [...] ANGELINA ANDERSRASHEED Date: 2022-10-24 16:22 Normal [facility] FERRITINon 09-18-2022 Ferritin [Mass/Vol] 612.0 ng/mL Critically high 8.0-252.0 [facility] Comment on above: Performed By: #### F ERR, FETIBC #### [facility] [address] [place] [address] Dr. Ember Teague HEMOGRAM AND PLATELon 2021 Hematocrit (Bld) [Volume fraction] 28.1 % Critically low 36.0-48.0 [facility] Comment on above: Performed By: #### C BC #### [facility] [address] [place] [address] Dr. Ember Teague Hemoglobin (Bld) [Mass/Vol] 9.7 g/dL Critically low 12.0-16.0 [facility] Comment on above: Performed By: #### C BC #### [facility] [address] [place] [address] Dr. Ember Teague MCH (RBC) [Entitic mass] 31.3 pg Normal 26.7-34.0 [facility] Comment on above: Performed By: #### C BC #### [facility] [address] [place] [address] Dr. Ember Teague MCHC (RBC) [Mass/Vol] 34.5 g/dL Normal 29.9-35.2 [facility] Comment on above: Performed By: #### C BC #### [facility] [address] [place] [address] Dr. Ember Teague MCV (RBC) [Entitic vol] 90.6 fL Normal 81.0-99.0 [facility] Comment on above: Performed By: #### C BC #### [facility] [address] [place] [address] Dr. Ember Teague PLT 183 103/ul Normal 150-450 [facility] Comment on above: Performed By: #### C BC #### [facility] [address] [address] [address] Ember Teague RBC 3.10 106/ul Critically low 4.20-5.40 [facility] Comment on above: Performed By: #### C BC #### [facility] [address] [address] [address] Ember Teague WBC 7.2 103/ul Normal 4.0-11.0 [facility] Comment on above: Performed By: #### C BC #### [facility] [address] [address] [address] Ember Teague IRON AND TIBCon 09-18-2022 % SATURATION 36.0 % Normal [facility] Comment on above: Performed By: #### F ERR, FETIBC #### [facility] [address] [place] [address] Dr. Ember Teague Iron [Mass/Vol] 77.0 ug/dL Normal 50.0-170.0 [facility] Comment on above: Performed By: #### F ERR, FETIBC #### [facility] [address] [address] [address] Ember Teague TIBC DIRECT 214.0 ug/dL Critically low 250.0-450.0 [facility] Comment on above: Performed By: #### F ERR, FETIBC #### [facility] [address] [place] [address] Dr. Ember Teague RENAL FUNCTION PANELon 09-18 Albumin [Mass/Vol] 3.7 g/dL Normal 3.4-5.0 [facility] Comment on above: Performed By: #### R ENAL #### [facility] [address] [address] [address] Ember Teague Calcium [Mass/Vol] 9.5 mg/dL Normal 8.5-10.1 [facility] Comment on above: Performed By: #### R ENAL #### [facility] [address] [place] [address] Dr. Ember Teague Chloride [Moles/Vol] 103 mmol/L Normal 98-107 [facility] Comment on above: Performed By: #### R ENAL #### [facility] [address] [address] [address] Ember Teague CO2 [Moles/Vol] 21.1 mmol/L Normal 21.0-32.0 [facility] Comment on above: Performed By: #### R ENAL #### [facility] [address] [address] [address] Ember Teague Creatinine [Mass/Vol] 1.85 mg/dL Critically high 0.55-1.02 [facility] Comment on above: Performed By: #### R ENAL #### [facility] [address] [address] [address] Ember Teague EGFR-AF BENINESE 32 mL/min/1.73m2 Critically low >=60 [facility] Comment on above: Performed By: #### R ENAL #### [facility] [address] [address] [address] Ember Teague EGFR-NON AF BENINESE 26 mL/min/1.73m2 Critically low >=60 [facility] Comment on above: Performed By: #### R ENAL #### [facility] [address] [address] [address] Ember Teague Glucose [Mass/Vol] 183 mg/dL Critically high 74-106 [facility] Comment on above: Performed By: #### R ENAL #### [facility] [address] [address] [address] Ember Teague Phosphate [Mass/Vol] 3.7 mg/dL Normal 2.6-4.7 [facility] Comment on above: Performed By: #### R ENAL #### [facility] [address] [address] [address] Ember Teague Potassium [Moles/Vol] 4.9 mmol/L Normal 3.5-5.1 [facility] Comment on above: Performed By: #### R ENAL #### [facility] [address] [address] [address] Ember Teague Sodium [Moles/Vol] 138 mmol/L Normal 136-145 [facility] Comment on above: Performed By: #### R ENAL #### [facility] [address] [place] [address] Dr. Ember Teague Urea nitrogen [Mass/Vol] 40.0 mg/dL Critically high 7.0-18.0 [facility] Comment on above: Performed By: #### R ENAL #### [facility] [address] [place] [address] Dr. Ember Teague CULTURE URINEon 09-15-2022 CULTURE [...] F Trimethoprim/Sulfamet hoxazole <=20 S F Normal [facility] Comment on above: Performed By: #### R ENAL #### [facility] [address] [place] [address] Dr. Ember Teague BNPon 09-11-2022 Natriuretic peptide B (Bld) [Mass/Vol] 408.0 pg/mL Normal <=1,800.0 [facility] Comment on above: Performed By: #### P THINT #### [facility] [address] [place] [address] Dr. Ember Teague CBC AUTO DIFFon 09-11-2022 BASO # 0.0 103/ul Normal 0.0-0.1 [facility] Comment on above: Performed By: #### C BC #### [facility] [address] [place] [address] Dr. Ember Teague Basophils/100 WBC (Bld) 0.3 % Normal 0.2-2.0 [facility] Comment on above: Performed By: #### C BC #### [facility] [address] [place] [address] Dr. Ember Teague EO # 0.1 103/ul Normal 0.0-0.7 [facility] Comment on above: Performed By: #### C BC #### [facility] [address] [place] [address] Dr. Ember Teague Eosinophils/100 WBC (Bld) 1.9 % Normal 0.9-7.0 [facility] Comment on above: Performed By: #### C BC #### [facility] [address] [place] [address] Dr. Ember Teague Erythrocyte distribution width (RBC) [Ratio] 15.2 % Critically high 11.0-15.0 [facility] Comment on above: Performed By: #### C BC #### [facility] [address] [place] [address] Dr. Ember Teague Hematocrit (Bld) [Volume fraction] 26.6 % Critically low 36.0-48.0 [facility] Comment on above: Performed By: #### C BC #### [facility] [address] [place] [address] Dr. Ember Teague Hemoglobin (Bld) [Mass/Vol] 9.0 g/dL Critically low 12.0-16.0 [facility] Comment on above: Performed By: #### C BC #### [facility] [address] [place] [address] Dr. Ember Teague IG # 0.02 10e3/ul Normal 0.00-0.03 [facility] Comment on above: Performed By: #### C BC #### [facility] [address] [place] [address] Dr. Ember Teague IG % 0.3 % Normal 0.0-0.5 [facility] Comment on above: Performed By: #### C BC #### [facility] [address] [place] [address] Dr. Ember Teague LYMPH # 1.9 103/ul Normal 1.2-3.8 [facility] Comment on above: Performed By: #### C BC #### [facility] [address] [place] [address] Dr. Ember Teague Lymphocytes/100 WBC (Bld) 32.4 % Normal 20.5-60.0 [facility] Comment on above: Performed By: #### C BC #### [facility] [address] [place] [address] Dr. Ember Teague MANUAL DIFF REQ NO Normal [facility] Comment on above: Performed By: #### C BC #### [facility] [address] [place] [address] Dr. Ember Teague MCH (RBC) [Entitic mass] 31.1 pg Normal 26.7-34.0 [facility] Comment on above: Performed By: #### C BC #### [facility] [address] [place] [address] Dr. Ember Teague MCHC (RBC) [Mass/Vol] 33.8 g/dL Normal 29.9-35.2 [facility] Comment on above: Performed By: #### C BC #### [facility] [address] [place] [address] Dr. Ember Teague MCV (RBC) [Entitic vol] 92.0 fL Normal 81.0-99.0 [facility] Comment on above: Performed By: #### C BC #### [facility] [address] [place] [address] Dr. Ember Teague MONO # 0.6 103/ul Normal 0.3-0.8 [facility] Comment on above: Performed By: #### C BC #### [facility] [address] [place] [address] Dr. Ember Teague Monocytes/100 WBC (Bld) 10.0 % Normal 1.7-12.0 [facility] Comment on above: Performed By: #### C BC #### [facility] [address] [place] [address] Dr. Ember Teague NEUT # 3.2 103/ul Normal 1.4-6.5 [facility] Comment on above: Performed By: #### C BC #### [facility] [address] [place] [address] Dr. Ember Teague Neutrophils/100 WBC (Bld) 55.1 % Normal 43.0-75.0 [facility] Comment on above: Performed By: #### C BC #### [facility] [address] [place] [address] Dr. Ember Teague Platelet mean volume (Bld) [Entitic vol] 9.4 fL Critically low 9.5-13.5 [facility] Comment on above: Performed By: #### C BC #### [facility] [address] [place] [address] Dr. Ember Teague PLT 196 103/ul Normal 150-450 [facility] Comment on above: Performed By: #### C BC #### [facility] [address] [place] [address] Dr. Ember Teague RBC 2.89 106/ul Critically low 4.20-5.40 [facility] Comment on above: Performed By: #### C BC #### [facility] [address] [place] [address] Dr. Ember Teague WBC 5.8 103/ul Normal 4.0-11.0 [facility] Comment on above: Performed By: #### C BC #### [facility] [address] [place] [address] Dr. Ember Teague PROF 14(COMP METB)on 022 Albumin [Mass/Vol] 3.7 g/dL Normal 3.4-5.0 [facility] Comment on above: Performed By: #### P THINT #### [facility] [address] [place] [address] Dr. Ember Teague Albumin/Globulin [Mass ratio] 1.0 {ratio} Normal [facility] Comment on above: Performed By: #### P THINT #### [facility] [address] [place] [address] Dr. Ember Teague ALP [Catalytic activity/Vol] 79 U/L Normal 46-116 [facility] Comment on above: Performed By: #### P THINT #### [facility] [address] [place] [address] Dr. Ember Teague ALT [Catalytic activity/Vol] 24 U/L Normal 14-59 [facility] Comment on above: Performed By: #### P THINT #### [facility] [address] [address] [address] Ember Teague Anion gap [Moles/Vol] 12.8 mmol/L Normal [facility] Comment on above: Performed By: #### P THINT #### [facility] [address] [address] [address] Ember Teague AST [Catalytic activity/Vol] 17 U/L Normal 15-37 [facility] Comment on above: Performed By: #### P THINT #### [facility] [address] [address] [address] Ember Teague Bilirubin [Mass/Vol] 0.5 mg/dL Normal 0.2-1.0 [facility] Comment on above: Performed By: #### P THINT #### [facility] [address] [place] [address] Dr. Ember Teague Calcium [Mass/Vol] 9.4 mg/dL Normal 8.5-10.1 [facility] Comment on above: Performed By: #### P THINT #### [facility] [address] [place] [address] Dr. Ember Teague Chloride [Moles/Vol] 101 mmol/L Normal 98-107 [facility] Comment on above: Performed By: #### P THINT #### [facility] [address] [place] [address] Dr. Ember Teague CO2 [Moles/Vol] 24.3 mmol/L Normal 21.0-32.0 [facility] Comment on above: Performed By: #### P THINT #### [facility] [address] [place] [address] Dr. Ember Teague Creatinine [Mass/Vol] 2.84 mg/dL Critically high 0.55-1.02 [facility] Comment on above: Performed By: #### P THINT #### [facility] [address] [place] [address] Dr. Ember Teague EGFR-AF BENINESE 20 mL/min/1.73m2 Critically low >=60 [facility] Comment on above: Performed By: #### P THINT #### [facility] [address] [address] [address] Ember Teague EGFR-NON AF BENINESE 16 mL/min/1.73m2 Critically low >=60 [facility] Comment on above: Performed By: #### P THINT #### [facility] [address] [address] [address] Ember Teague Globulin (S) [Mass/Vol] 3.7 g/dL Normal [facility] Comment on above: Performed By: #### P THINT #### [facility] [address] [address] [address] Ember Teague Glucose [Mass/Vol] 174 mg/dL Critically high 74-106 [facility] Comment on above: Performed By: #### P THINT #### [facility] [address] [address] [address] Ember Teague Potassium [Moles/Vol] 5.1 mmol/L Normal 3.5-5.1 [facility] Comment on above: Performed By: #### P THINT #### [facility] [address] [place] [address] Dr. Ember Teague Protein [Mass/Vol] 7.4 g/dL Normal 6.4-8.2 [facility] Comment on above: Performed By: #### P THINT #### [facility] [address] [address] [address] Ember Teague Sodium [Moles/Vol] 133 mmol/L Critically low 136-145 [facility] Comment on above: Performed By: #### P THINT #### [facility] [address] [address] [address] Ember Teague Urea nitrogen [Mass/Vol] 68.0 mg/dL Critically high 7.0-18.0 [facility] Comment on above: Performed By: #### P THINT #### [facility] [address] [address] [address] Ember Teague Urea nitrogen/Creatinine [Mass ratio] 23.9 mg/mg Normal [facility] Comment on above: Performed By: #### P THINT #### [facility] [address] [place] [address] Dr. Ember Teague TROPONIN, HIGH SENSITIVITYon 09-11-2022 HSTROP 9.1 pg/mL Normal 4.0-51.3 [facility] Comment on above: Result Comment: CUT- OFF POINTS HAVE BEEN ESTABLISHED BASED ON THE FOURTH UNIVERSAL DEFINITIONS OF MYOCARDIAL INFARCTION. THE UPPER REFERENCE LIMIT (URL) OF TROPONIN, DEFINED THE 99TH PERCENTILE OF cTnI DISTRIBUTION IN A REFERENCE POPULATION, HAS BEEN CONFIRMED THE DECISION THRESHOLD FOR NH DIAGNOSIS. Performed By: #### P THINT #### [facility] [address] [place] [address] Dr. Ember Teague UA RANDOM W/MICROSCOPICon BACTERIA NONE SEEN Normal NONE SEEN [facility] Comment on above: Performed By: #### C VDTBH #### [facility] [address] [place] [address] Dr. Ember Teague Bilirubin Ql (U) Negative Normal NEGATIVE [facility] Comment on above: Performed By: #### C VDTBH #### [facility] [address] [place] [address] Dr. Ember Teague CAST NONE SEEN Normal NONE SEEN [facility] Comment on above: Performed By: #### C VDTBH #### [facility] [address] [place] [address] Dr. Ember Teague Clarity (U) CLEAR Normal CLEAR [facility] Comment on above: Performed By: #### C VDTBH #### [facility] [address] [place] [address] Dr. Ember Teague Color (U) LT. YELLOW Normal YELLOW [facility] Comment on above: Performed By: #### C VDTBH #### [facility] [address] [place] [address] Dr. Ember Teague Crystals LM Nom (Urine sed) NONE SEEN Normal NONE SEEN [facility] Comment on above: Performed By: #### C VDTBH #### [facility] [address] [place] [address] Dr. Ember Teague Epithelial cells LM Ql (Urine sed) FEW Abnormal NONE SEEN /RARE [facility] Comment on above: Performed By: #### C VDTBH #### [facility] [address] [place] [address] Dr. Ember Teague Glucose Ql (U) Negative Normal NEGATIVE [facility] Comment on above: Performed By: #### C VDTBH #### [facility] [address] [place] [address] Dr. Ember Teague Hemoglobin Ql (U) Negative Normal NEGATIVE [facility] Comment on above: Performed By: #### C VDTBH #### [facility] [address] [place] [address] Dr. Ember Teague Ketones Ql (U) Negative Normal NEGATIVE [facility] Comment on above: Performed By: #### C VDTBH #### [facility] [address] [place] [address] Dr. Ember Teague LEUKOCYTES Negative Normal NEGATIVE [facility] Comment on above: Performed By: #### C VDTBH #### [facility] [address] [place] [address] Dr. Ember Teague MUCOUS NONE SEEN Normal NONE SEEN [facility] Comment on above: Performed By: #### C VDTBH #### [facility] [address] [place] [address] Dr. Ember Teague Nitrite Ql (U) Negative Normal NEGATIVE [facility] Comment on above: Performed By: #### C VDTBH #### [facility] [address] [place] [address] Dr. Ember Teague pH (U) 5.5 [pH] Normal 5-9 [facility] Comment on above: Performed By: #### C VDTBH #### [facility] [address] [place] [address] Dr. Ember Teague RBC NONE SEEN Abnormal 0-2 [facility] Comment on above: Performed By: #### C VDTBH #### [facility] [address] [place] [address] Dr. Ember Teague SPEC GRAVITY 1.010 Normal 1.005-<=1.025 [facility] Comment on above: Performed By: #### C VDTBH #### [facility] [address] [place] [address] Dr. Ember Teague UA PROTEIN Negative Normal NEGATIVE/ TRACE [facility] Comment on above: Performed By: #### C VDTBH #### [facility] [address] [place] [address] Dr. Ember Teague Urobilinogen Qn (U) 0.2 {Esau'U}/dL Normal 0.2 - 1. 0 [facility] Comment on above: Performed By: #### C VDTBH #### [facility] [address] [place] [address] Dr. Ember Teague WBC NONE SEEN Normal NONE SEEN [facility] Comment on above: Performed By: #### C VDTBH #### [facility] [address] [place] [address] Dr. Ember Teague CBC AUTO DIFFon 08-13-2022 BASO # 0.0 103/ul Normal 0.0-0.1 [facility] Comment on above: Performed By: #### C BC #### [facility] [address] [place] [address] Dr. Ember Teague Basophils/100 WBC (Bld) 0.3 % Normal 0.2-2.0 [facility] Comment on above: Performed By: #### C BC #### [facility] [address] [place] [address] Dr. Ember Teague EO # 0.2 103/ul Normal 0.0-0.7 [facility] Comment on above: Performed By: #### C BC #### [facility] [address] [place] [address] Dr. Ember Teague Eosinophils/100 WBC (Bld) 3.7 % Normal 0.9-7.0 [facility] Comment on above: Performed By: #### C BC #### [facility] [address] [place] [address] Dr. Ember Teague Erythrocyte distribution width (RBC) [Ratio] 15.0 % Normal 11.0-15.0 [facility] Comment on above: Performed By: #### C BC #### [facility] [address] [place] [address] Dr. Ember Teague Hematocrit (Bld) [Volume fraction] 27.9 % Critically low 36.0-48.0 [facility] Comment on above: Performed By: #### C BC #### [facility] [address] [place] [address] Dr. Ember Teague Hemoglobin (Bld) [Mass/Vol] 9.7 g/dL Critically low 12.0-16.0 [facility] Comment on above: Performed By: #### C BC #### [facility] [address] [place] [address] Dr. Ember Teague IG # 0.01 10e3/ul Normal 0.00-0.03 [facility] Comment on above: Performed By: #### C BC #### [facility] [address] [place] [address] Dr. Ember Teague IG % 0.2 % Normal 0.0-0.5 [facility] Comment on above: Performed By: #### C BC #### [facility] [address] [place] [address] Dr. Ember Teague LYMPH # 1.9 103/ul Normal 1.2-3.8 [facility] Comment on above: Performed By: #### C BC #### [facility] [address] [place] [address] Dr. Ember Teague Lymphocytes/100 WBC (Bld) 32.2 % Normal 20.5-60.0 [facility] Comment on above: Performed By: #### C BC #### [facility] [address] [place] [address] Dr. Ember Teague MANUAL DIFF REQ NO Normal [facility] Comment on above: Performed By: #### C BC #### [facility] [address] [place] [address] Dr. Ember Teague MCH (RBC) [Entitic mass] 31.4 pg Normal 26.7-34.0 [facility] Comment on above: Performed By: #### C BC #### [facility] [address] [address] [address] Ember Teague MCHC (RBC) [Mass/Vol] 34.8 g/dL Normal 29.9-35.2 [facility] Comment on above: Performed By: #### C BC #### [facility] [address] [address] [address] Ember Teague MCV (RBC) [Entitic vol] 90.3 fL Normal 81.0-99.0 [facility] Comment on above: Performed By: #### C BC #### [facility] [address] [place] [address] Dr. Ember Teague MONO # 0.6 103/ul Normal 0.3-0.8 [facility] Comment on above: Performed By: #### C BC #### [facility] [address] [place] [address] Dr. Ember Teague Monocytes/100 WBC (Bld) 9.8 % Normal 1.7-12.0 [facility] Comment on above: Performed By: #### C BC #### [facility] [address] [place] [address] Dr. Ember Teague NEUT # 3.2 103/ul Normal 1.4-6.5 [facility] Comment on above: Performed By: #### C BC #### [facility] [address] [place] [address] Dr. Ember Teague Neutrophils/100 WBC (Bld) 53.8 % Normal 43.0-75.0 [facility] Comment on above: Performed By: #### C BC #### [facility] [address] [place] [address] Dr. Ember Teague Platelet mean volume (Bld) [Entitic vol] 10.0 fL Normal 9.5-13.5 [facility] Comment on above: Performed By: #### C BC #### [facility] [address] [address] [address] Ember Teague PLT 194 103/ul Normal 150-450 [facility] Comment on above: Performed By: #### C BC #### [facility] [address] [place] [address] Dr. Ember Teague RBC 3.09 106/ul Critically low 4.20-5.40 [facility] Comment on above: Performed By: #### C BC #### [facility] [address] [place] [address] Dr. Ember Teague WBC 6.0 103/ul Normal 4.0-11.0 [facility] Comment on above: Performed By: #### C BC #### [facility] [address] [place] [address] Dr. Ember Teague PTH INTACTon 06-26-2022 PTH, Intact 39 pg/mL Normal 15-65 [facility] Comment on above: Performed By: #### P THINT #### [facility] [address] [place] [address] Dr. Ember Teague CBC AUTO DIFFon 06-25-2022 BASO # 0.1 103/ul Normal 0.0-0.1 [facility] Comment on above: Performed By: #### C VDTBH #### [facility] [address] [place] [address] Dr. Ember Teague Basophils/100 WBC (Bld) 0.6 % Normal 0.2-2.0 [facility] Comment on above: Performed By: #### C VDTBH #### [facility] [address] [place] [address] Dr. Ember Teague EO # 0.2 103/ul Normal 0.0-0.7 [facility] Comment on above: Performed By: #### C VDTBH #### [facility] [address] [place] [address] Dr. Ember Teague Eosinophils/100 WBC (Bld) 3.0 % Normal 0.9-7.0 [facility] Comment on above: Performed By: #### C VDTBH #### [facility] [address] [place] [address] Dr. Ember Teague Erythrocyte distribution width (RBC) [Ratio] 14.2 % Normal 11.0-15.0 [facility] Comment on above: Performed By: #### C VDTBH #### [facility] [address] [place] [address] Dr. Ember Teague Hematocrit (Bld) [Volume fraction] 30.9 % Critically low 36.0-48.0 [facility] Comment on above: Performed By: #### C VDTBH #### [facility] [address] [place] [address] Dr. Ember Teague Hemoglobin (Bld) [Mass/Vol] 10.6 g/dL Critically low 12.0-16.0 [facility] Comment on above: Performed By: #### C VDTBH #### [facility] [address] [place] [address] Dr. Ember Teague IG # 0.04 10e3/ul Critically high 0.00-0.03 [facility] Comment on above: Performed By: #### C VDTBH #### [facility] [address] [place] [address] Dr. Ember Teague IG % 0.5 % Normal 0.0-0.5 [facility] Comment on above: Performed By: #### C VDTBH #### [facility] [address] [place] [address] Dr. Ember Teague LYMPH # 2.2 103/ul Normal 1.2-3.8 [facility] Comment on above: Performed By: #### C VDTBH #### [facility] [address] [place] [address] Dr. Ember Teague Lymphocytes/100 WBC (Bld) 27.0 % Normal 20.5-60.0 [facility] Comment on above: Performed By: #### C VDTBH #### [facility] [address] [place] [address] Dr. Ember Teague MANUAL DIFF REQ NO Normal [facility] Comment on above: Performed By: #### C VDTBH #### [facility] [address] [place] [address] Dr. Ember Teague MCH (RBC) [Entitic mass] 31.2 pg Normal 26.7-34.0 [facility] Comment on above: Performed By: #### C VDTBH #### [facility] [address] [place] [address] Dr. Ember Teague MCHC (RBC) [Mass/Vol] 34.3 g/dL Normal 29.9-35.2 [facility] Comment on above: Performed By: #### C VDTBH #### [facility] [address] [place] [address] Dr. Ember Teague MCV (RBC) [Entitic vol] 90.9 fL Normal 81.0-99.0 [facility] Comment on above: Performed By: #### C VDTBH #### [facility] [address] [place] [address] Dr. Ember Teague MONO # 0.7 103/ul Normal 0.3-0.8 [facility] Comment on above: Performed By: #### C VDTBH #### [facility] [address] [place] [address] Dr. Ember Teague Monocytes/100 WBC (Bld) 9.2 % Normal 1.7-12.0 [facility] Comment on above: Performed By: #### C VDTBH #### [facility] [address] [place] [address] Dr. Ember Teague NEUT # 4.8 103/ul Normal 1.4-6.5 [facility] Comment on above: Performed By: #### C VDTBH #### [facility] [address] [place] [address] Dr. Ember Teague Neutrophils/100 WBC (Bld) 59.7 % Normal 43.0-75.0 [facility] Comment on above: Performed By: #### C VDTBH #### [facility] [address] [place] [address] Dr. Ember Teague Platelet mean volume (Bld) [Entitic vol] 9.3 fL Critically low 9.5-13.5 [facility] Comment on above: Performed By: #### C VDTBH #### [facility] [address] [place] [address] Dr. Ember Teague PLT 227 103/ul Normal 150-450 [facility] Comment on above: Performed By: #### C VDTBH #### [facility] [address], [place] [address] Dr. Ember Teague RBC 3.40 106/ul Critically low 4.20-5.40 [facility] Comment on above: Performed By: #### C VDTBH #### [facility] [address], [place] [address] Dr. Ember Teague WBC 8.0 103/ul Normal 4.0-11.0 [facility] Comment on above: Performed By: #### C VDTBH #### [facility] [id number] Ember Teague MRI LSPINE WO CONon [...] YANET HUERTA Date: 2022-06-25 08:45 Normal [facility] RENAL FUNCTION PANELon 06-25 Albumin [Mass/Vol] 3.9 g/dL Normal 3.4-5.0 [facility] Comment on above: Performed By: #### P THINT #### [facility] [address] [address] [address] Ember Teague Calcium [Mass/Vol] 9.5 mg/dL Normal 8.5-10.1 [facility] Comment on above: Performed By: #### P THINT #### [facility] [address] [address] [address] Ember Teague Chloride [Moles/Vol] 102 mmol/L Normal 98-107 [facility] Comment on above: Performed By: #### P THINT #### [facility] [address] [address] [address] Ember Teague CO2 [Moles/Vol] 23.8 mmol/L Normal 21.0-32.0 [facility] Comment on above: Performed By: #### P THINT #### [facility] [address] [address] [address] Ember Teague Creatinine [Mass/Vol] 1.75 mg/dL Critically high 0.55-1.02 [facility] Comment on above: Performed By: #### P THINT #### [facility] [address] [address] [address] Ember Teague EGFR-AF BENINESE 34 mL/min/1.73m2 Critically low >=60 [facility] Comment on above: Performed By: #### P THINT #### [facility] [address] [address] [address] Ember Teague EGFR-NON AF BENINESE 28 mL/min/1.73m2 Critically low >=60 [facility] Comment on above: Performed By: #### P THINT #### [facility] [address] [address] [address] Ember Teague Glucose [Mass/Vol] 199 mg/dL Critically high 74-106 [facility] Comment on above: Performed By: #### P THINT #### [facility] [address] [address] [address] Ember eTague Phosphate [Mass/Vol] 4.3 mg/dL Normal 2.6-4.7 [facility] Comment on above: Performed By: #### P THINT #### [facility] [address] [address] [address] Ember Teague Potassium [Moles/Vol] 4.9 mmol/L Normal 3.5-5.1 [facility] Comment on above: Performed By: #### P THINT #### [facility] [address] [place] [address] Dr. Ember Teague Sodium [Moles/Vol] 135 mmol/L Critically low 136-145 Th [facility] Comment on above: Performed By: #### P THINT #### [facility] [address] [address] [address] Ember Teague Urea nitrogen [Mass/Vol] 34.0 mg/dL Critically high 7.0-18.0 [facility] Comment on above: Performed By: #### P THINT #### [facility] [address] [place] [address] Dr. Ember Teague VITAMIN D 25 OHon 06-25-2022 VIT D 25-OH 40.6 ng/mL Normal [facility] Comment on above: Performed By: #### P THINT #### [facility] [address] [place] [address] Dr. Ember Teague VIT D RANGES SEE BELOW Normal [facility] Comment on above: Result Comment: <20 ng/mL Vit D deficient 20 - <30 ng/mL Vit D insufficient 30 - 100 ng/mL Vit D sufficient >100 ng/mL Potential Toxicity Performed By: #### P THINT #### [facility] [address] [place] [address] Dr. Ember Teague Covid-19 PCR (CVDTBH)on 06-07 SARS-CoV-2 (COVID-19) RNA ALEXX+probe Ql (Unsp spec) Not detected Normal NOT DETECTED [facility] Comment on above: Result Comment: This test is not yet approved or cleared by the [place] FDA. When there are no FDA-approved or cleared tests available, and other criteria are met, FDA can make tests available under an emergency access mechanism called an Emergency Use Authorization (EUA). The EUA for this test is supported by the [place] of Health and Human Service's (HHS's) declaration [...] [facility] #### [facility] [address] [place] [address] LSPINE WO CONon 2 [facility] WO CON EXAMINATION: CT LSMARLIN WO CON, 06/01/2022 7:48 AM EDT HISTORY: [...] YANET HUERTA Date: 2022-06-01 18:02 Normal [facility] XR LSPINE MIN 4 VIEWSon 05-07 [...] YANET HUERTA Date: 2022-05-21 15:25 Normal [facility] PTH INTACTon 05-03-2022 PTH, Intact 60 pg/mL Normal 15-65 [facility] Comment on above: Performed By: #### [facility] #### [facility] [address] [place] [address] Dr. Ember Teague VIT D 25-OH LABCORPon 2021 Vitamin D, 25-Hydroxy 26.1 ng/mL Critically low 30.0-100.0 [facility] Comment on above: Result Comment: Sara min D deficiency has been defined by the [place] of [employer] and an Endocrine Society practice guideline as a level of serum 25-OH vitamin D less than 20 ng/mL (1,2). The Endocrine Society went on to further define vitamin D insufficiency as a level between 21 and 29 ng/mL (2). 1. IOM ([place] of [employer]). 2010. Dietary reference intakes for calcium and D. [place]: The National Academies Press. 2. Sherice MF, Wendy NC, Huan ZHONG, et al. Evaluation, treatment, and prevention of vitamin D deficiency: an Endocrine Society clinical practice guideline. JCEM. 2010; 96(7):1911-30. Performed By: #### R ENAL #### [facility] [address] [place] [address] Dr. Ember Teague FERRITINon 05-02-2022 Ferritin [Mass/Vol] 590.0 ng/mL Critically high 8.0-252.0 [facility] Comment on above: Performed By: #### R ENAL #### [facility] [address] [place] [address] Dr. Ember Teague HEMOGRAM AND PLATELon 2021 Hematocrit (Bld) [Volume fraction] 28.4 % Critically low 36.0-48.0 [facility] Comment on above: Performed By: #### C VDTBH #### [facility] [address] [place] [address] Dr. Ember Tegaue Hemoglobin (Bld) [Mass/Vol] 9.6 g/dL Critically low 12.0-16.0 [facility] Comment on above: Performed By: #### C VDTBH #### [facility] [address] [place] [address] Dr. Ember Teague MCH (RBC) [Entitic mass] 31.0 pg Normal 26.7-34.0 [facility] Comment on above: Performed By: #### C VDTBH #### [facility] [address] [place] [address] Dr. Ember Teague MCHC (RBC) [Mass/Vol] 33.8 g/dL Normal 29.9-35.2 [facility] Comment on above: Performed By: #### C VDTBH #### [facility] [address] [place] [address] Dr. Ember Teague MCV (RBC) [Entitic vol] 91.6 fL Normal 81.0-99.0 [facility] Comment on above: Performed By: #### C VDTBH #### [facility] [address] [address] [address] Ember Teague PLT 189 103/ul Normal 150-450 [facility] Comment on above: Performed By: #### C VDTBH #### [facility] [address] [address] [address] Ember Teague RBC 3.10 106/ul Critically low 4.20-5.40 [facility] Comment on above: Performed By: #### C VDTBH #### [facility] [address] [address] [address] Ember Teague WBC 6.2 103/ul Normal 4.0-11.0 [facility] Comment on above: Performed By: #### C VDTBH #### [facility] [address] [place] [address] Dr. Ember Teague IRON AND TIBCon 05-02-2022 % SATURATION 34.3 % Normal [facility] Comment on above: Performed By: #### R ENAL #### [facility] [address] [address] [address] Ember Teague Iron [Mass/Vol] 69.0 ug/dL Normal 50.0-170.0 [facility] Comment on above: Performed By: #### R ENAL #### [facility] [address] [place] [address] Dr. Ember Teague TIBC DIRECT 201.0 ug/dL Critically low 250.0-450.0 [facility] Comment on above: Performed By: #### R ENAL #### [facility] [address] [address] [address] Ember Teague MAGNESIUMon 05-02-2022 Magnesium [Mass/Vol] 1.7 mg/dL Critically low 1.8-2.4 [facility] Comment on above: Performed By: #### C VDTBH #### [facility] [address] [place] [address] Dr. Ember Teague RENAL FUNCTION PANELon 05-02 Albumin [Mass/Vol] 3.6 g/dL Normal 3.4-5.0 [facility] Comment on above: Performed By: #### C VDTBH #### [facility] [address] [place] [address] Dr. Ember Teague Calcium [Mass/Vol] 9.2 mg/dL Normal 8.5-10.1 [facility] Comment on above: Performed By: #### C VDTBH #### [facility] [address] [place] [address] Dr. Ember Teague Chloride [Moles/Vol] 107 mmol/L Normal 98-107 [facility] Comment on above: Performed By: #### C VDTBH #### [facility] [address] [place] [address] Dr. Ember Teague CO2 [Moles/Vol] 21.2 mmol/L Normal 21.0-32.0 [facility] Comment on above: Performed By: #### C VDTBH #### [facility] [address] [place] [address] Dr. Ember Teague Creatinine [Mass/Vol] 1.75 mg/dL Critically high 0.55-1.02 [facility] Comment on above: Performed By: #### C VDTBH #### [facility] [address] [place] [address] Dr. Ember Teague EGFR-AF BENINESE 34 mL/min/1.73m2 Critically low >=60 [facility] Comment on above: Performed By: #### C VDTBH #### [facility] [address] [place] [address] Dr. Ember Teague EGFR-NON AF BENINESE 28 mL/min/1.73m2 Critically low >=60 [facility] Comment on above: Performed By: #### C VDTBH #### [facility] [address] [place] [address] Dr. Ember Teague Glucose [Mass/Vol] 193 mg/dL Critically high 74-106 [facility] Comment on above: Performed By: #### C VDTBH #### [facility] [address] [place] [address] Dr. Ember Teague Phosphate [Mass/Vol] 4.2 mg/dL Normal 2.6-4.7 [facility] Comment on above: Performed By: #### C VDTBH #### [facility] [address] [place] [address] Dr. Ember Teague Potassium [Moles/Vol] 5.1 mmol/L Normal 3.5-5.1 [facility] Comment on above: Performed By: #### C VDTBH #### [facility] [address] [place] [address] Dr. Ember Teague Sodium [Moles/Vol] 139 mmol/L Normal 136-145 [facility] Comment on above: Performed By: #### C VDTBH #### [facility] [address] [place] [address] Dr. Ember Teague Urea nitrogen [Mass/Vol] 34.0 mg/dL Critically high 7.0-18.0 [facility] Comment on above: Performed By: #### C VDTBH #### [facility] [address] [place] [address] Dr. Ember Teague UA RANDOM W/MICROSCOPICon BACTERIA SMALL Abnormal NONE SEEN [facility] Comment on above: Performed By: #### C VDTBH #### [facility] [address] [place] [address] Dr. Ember Teague Bilirubin Ql (U) Negative Normal NEGATIVE [facility] Comment on above: Performed By: #### C VDTBH #### [facility] [address] [place] [address] Dr. Ember Teague CAST NONE SEEN Normal NONE SEEN [facility] Comment on above: Performed By: #### C VDTBH #### [facility] [address] [place] [address] Dr. Ember Teague Clarity (U) CLEAR Normal CLEAR [facility] Comment on above: Performed By: #### C VDTBH #### [facility] [address] [place] [address] Dr. Ember Teague Color (U) LT. YELLOW Normal YELLOW [facility] Comment on above: Performed By: #### C VDTBH #### [facility] [address] [place] [address] Dr. Ember Teague Crystals LM Nom (Urine sed) NONE SEEN Normal NONE SEEN [facility] Comment on above: Performed By: #### C VDTBH #### [facility] [address] [place] [address] Dr. Ember Teague Epithelial cells LM Ql (Urine sed) MODERATE Abnormal NONE SEEN /RARE [facility] Comment on above: Performed By: #### C VDTBH #### [facility] [address] [place] [address] Dr. Ember Teague Glucose Ql (U) Negative Normal NEGATIVE [facility] Comment on above: Performed By: #### C VDTBH #### [facility] [address] [place] [address] Dr. Ember Teague Hemoglobin Ql (U) Negative Normal NEGATIVE [facility] Comment on above: Performed By: #### C VDTBH #### [facility] [address] [place] [address] Dr. Ember Teague Ketones Ql (U) Negative Normal NEGATIVE [facility] Comment on above: Performed By: #### C VDTBH #### [facility] [address] [place] [address] Dr. Ember Teague LEUKOCYTES TRACE Abnormal NEGATIVE [facility] Comment on above: Performed By: #### C VDTBH #### [facility] [address] [place] [address] Dr. Ember Teague MUCOUS NONE SEEN Normal NONE SEEN [facility] Comment on above: Performed By: #### C VDTBH #### [facility] [address] [place] [address] Dr. Ember Teague Nitrite Ql (U) Negative Normal NEGATIVE [facility] Comment on above: Performed By: #### C VDTBH #### [facility] [address] [place] [address] Dr. Ember Teague pH (U) 5.0 [pH] Normal 5-9 [facility] Comment on above: Performed By: #### C VDTBH #### [facility] [address] [place] [address] Dr. Ember Teague RBC NONE SEEN Abnormal 0-2 [facility] Comment on above: Performed By: #### C VDTBH #### [facility] [address] [place] [address] Dr. Ember Teague SPEC GRAVITY 1.015 Normal 1.005-<=1.025 [facility] Comment on above: Performed By: #### C VDTBH #### [facility] [address] [place] [address] Dr. Ember Teague UA PROTEIN TRACE Normal NEGATIVE/ TRACE [facility] Comment on above: Performed By: #### C VDTBH #### [facility] [address] [place] [address] Dr. Ember Teague Urobilinogen Qn (U) 0.2 {Esau'U}/dL Normal 0.2 - 1. 0 [facility] Comment on above: Performed By: #### C VDTBH #### [facility] [address] [place] [address] Dr. Ember Teague WBC 0-2 Abnormal NONE SEEN [facility] Comment on above: Performed By: #### C VDTBH #### [facility] [address] [place] [address] Dr. Ember Teague URIC ACID SERUMon 05-02-2022 Urate [Mass/Vol] 4.4 mg/dL Normal 2.6-6.0 [facility] Comment on above: Performed By: #### C #### [facility] [address] [place] [address] Dr. Ember Teague URINE T PROTEIN CREAT RATIOo n 05-02-2022 Protein (U) [Mass/Vol] 33.7 mg/dL Critically high <=12.0 [facility] Comment on above: Performed By: #### C VDTBH #### [facility] [address] [place] [address] Dr. Ember Teague UR PROT CREAT RAT 0.69 Normal [facility] Comment on above: Performed By: #### C VDTBH #### [facility] [address] [address] [address] Ember Teague URINE CREAT 48.93 mg/dL Normal 20.00-300.00 [facility] Comment on above: Performed By: #### [facility] #### [facility] [address] [address] [address] Ember Teague Vital Signs Date Time Vital Sign Value Performing Clinician Facility 10-15-2023 13:00-0500 Body height 168.91 cm Ron Doreen Other [facility] Other 10-15-2023 13:00-0500 Body mass index (BMI) [Ratio] 29.82 kg/m2 Ron Doreen Other [facility] Other 10-15-2023 13:00-0500 Body temperature 97.5 [degF] Ron Doreen Other [facility] Other 10-15-2023 13:00-0500 Body weight 85.1 kg Ron Doreen Other [facility] Other 10-15-2023 13:00-0500 Diastolic blood pressure 68 mm[Hg] Ron Doreen Other [facility] Other 10-15-2023 13:00-0500 Respiratory rate 18 /min Ron Doreen Other [facility] Other 10-15-2023 13:00-0500 SaO2% (BldA) [Mass fraction] 98 % Ron Doreen Other [facility] Other 10-15-2023 13:00-0500 Systolic blood pressure 113 mm[Hg] Ron Doreen Other [facility] Other 08-27-2023 09:40-0500 Body height 168.91 cm Aziz Bakhous Other [facility] Other 08-27-2023 09:40-0500 Body mass index (BMI) [Ratio] 30.2 kg/m2 Aziz Bakhous Other [facility] Other 08-27-2023 09:40-0500 Body temperature 96.7 [degF] Aziz Bakhous Other [facility] Other 08-27-2023 09:40-0500 Body weight 86.18 kg Aziz Bakhous Other [facility] Other 08-27-2023 09:40-0500 Diastolic blood pressure 72 mm[Hg] Aziz Bakhous Other [facility] Other 08-27-2023 09:40-0500 Respiratory rate 18 /min Aziz Bakhous Other [facility] Other 08-27-2023 09:40-0500 SaO2% (BldA) [Mass fraction] 98 % Aziz Bakhous Other [facility] Other 08-27-2023 09:40-0500 Systolic blood pressure 153 mm[Hg] Aziz Bakhous Other [facility] Other 08-15-2023 10:20-0500 Body height 168.91 cm Ron Doreen Other [facility] Other 08-15-2023 10:20-0500 Body mass index (BMI) [Ratio] 30.2 kg/m2 Ron Doreen Other [facility] Other 08-15-2023 10:20-0500 Body temperature 97.1 [degF] Ron Doreen Other [facility] Other 08-15-2023 10:20-0500 Body weight 86.18 kg Ron Doreen Other [facility] Other 08-15-2023 10:20-0500 Diastolic blood pressure 79 mm[Hg] Ron Doreen Other [facility] Other 08-15-2023 10:20-0500 Respiratory rate 18 /min Ron Doreen Other [facility] Other 08-15-2023 10:20-0500 SaO2% (BldA) [Mass fraction] 98 % Ron Doreen Other [facility] Other 08-15-2023 10:20-0500 Systolic blood pressure 164 mm[Hg] Ron Doreen Other [facility] Other 08-13-2023 15:40-0500 Body height 168.91 cm Ron Doreen Other [facility] Other 08-13-2023 15:40-0500 Body mass index (BMI) [Ratio] 30.24 kg/m2 Ron Doreen Other [facility] Other 08-13-2023 15:40-0500 Body temperature 97.2 [degF] Ron Doreen Other [facility] Other 08-13-2023 15:40-0500 Body weight 86.27 kg Ron Doreen Other [facility] Other 08-13-2023 15:40-0500 Diastolic blood pressure 79 mm[Hg] Ron Doreen Other [facility] Other 08-13-2023 15:40-0500 Respiratory rate 18 /min Ron Doreen Other [facility] Other 08-13-2023 15:40-0500 SaO2% (BldA) [Mass fraction] 98 % Ron Doreen Other [facility] Other 08-13-2023 15:40-0500 Systolic blood pressure 186 mm[Hg] Ron Doreen Other [facility] Other 08-01-2023 13:00-0400 Body height 168.91 cm Ron Doreen Other [facility] Other 08-01-2023 13:00-0400 Body mass index (BMI) [Ratio] 30.55 kg/m2 Ron Doreen Other [facility] Other 08-01-2023 13:00-0400 Body temperature 97.8 [degF] Ron Doreen Other [facility] Other 08-01-2023 13:00-0400 Body weight 87.18 kg Ron Doreen Other [facility] Other 08-01-2023 13:00-0400 Diastolic blood pressure 72 mm[Hg] Ron Doreen Other [facility] Other 08-01-2023 13:00-0400 Respiratory rate 18 /min Ron Doreen Other [facility] Other 08-01-2023 13:00-0400 SaO2% (BldA) [Mass fraction] 98 % Ron Doreen Other [facility] Other 08-01-2023 13:00-0400 Systolic blood pressure 160 mm[Hg] Ron Doreen Other [facility] Other 06-24-2023 11:40-0400 Body height 168.91 cm Ron Doreen Other [facility] Other 06-24-2023 11:40-0400 Body mass index (BMI) [Ratio] 29.89 kg/m2 Ron Doreen Other [facility] Other 06-24-2023 11:40-0400 Body temperature 97.3 [degF] Ron Doreen Other [facility] Other 06-24-2023 11:40-0400 Body weight 85.28 kg Ron Doreen Other [facility] Other 06-24-2023 11:40-0400 Diastolic blood pressure 75 mm[Hg] Ron Doreen Other [facility] Other 06-24-2023 11:40-0400 Respiratory rate 18 /min Ron Doreen Other [facility] Other 06-24-2023 11:40-0400 SaO2% (BldA) [Mass fraction] 99 % Ron Doreen Other [facility] Other 06-24-2023 11:40-0400 Systolic blood pressure 129 mm[Hg] Ron Doreen Other [facility] Other 06-06-2023 15:20-0400 Body height 168.91 cm Ron Doreen Other [facility] Other 06-06-2023 15:20-0400 Body mass index (BMI) [Ratio] 29.92 kg/m2 Ron Doreen Other [facility] Other 06-06-2023 15:20-0400 Body temperature 96.5 [degF] Ron Doreen Other [facility] Other 06-06-2023 15:20-0400 Body weight 85.37 kg Ron Doreen Other [facility] Other 06-06-2023 15:20-0400 Diastolic blood pressure 49 mm[Hg] Ron Doreen Other [facility] Other 06-06-2023 15:20-0400 Respiratory rate 18 /min Ron Doreen Other [facility] Other 06-06-2023 15:20-0400 SaO2% (BldA) [Mass fraction] 99 % Ron Doreen Other [facility] Other 06-06-2023 15:20-0400 Systolic blood pressure 128 mm[Hg] Ron Doreen Other [facility] Other 04-30-2023 11:40-0400 Body height 168.91 cm Ron Doreen Other [facility] Other 04-30-2023 11:40-0400 Body mass index (BMI) [Ratio] 30.52 kg/m2 Ron Doreen Other [facility] Other 04-30-2023 11:40-0400 Body temperature 96.9 [degF] Ron Doreen Other [facility] Other 04-30-2023 11:40-0400 Body weight 87.09 kg Ron Doreen Other [facility] Other 04-30-2023 11:40-0400 Diastolic blood pressure 80 mm[Hg] Ron Doreen Other [facility] Other 04-30-2023 11:40-0400 Respiratory rate 18 /min Ron Doreen Other [facility] Other 04-30-2023 11:40-0400 SaO2% (BldA) [Mass fraction] 98 % Ron Doreen Other [facility] Other 04-30-2023 11:40-0400 Systolic blood pressure 150 mm[Hg] Ron Doreen Other [facility] Other 04-06-2023 09:00-0400 Body height 168.91 cm Ron Doreen Other [facility] Other 04-06-2023 09:00-0400 Body mass index (BMI) [Ratio] 30.36 kg/m2 Ron Doreen Other [facility] Other 04-06-2023 09:00-0400 Body weight 86.64 kg Orn Doreen Other [facility] Other 04-06-2023 09:00-0400 Diastolic blood pressure 54 mm[Hg] Ron Doreen Other [facility] Other 04-06-2023 09:00-0400 Respiratory rate 18 /min Ron Doreen Other [facility] Other 04-06-2023 09:00-0400 SaO2% (BldA) [Mass fraction] 98 % Ron Doreen Other [facility] Other 04-06-2023 09:00-0400 Systolic blood pressure 144 mm[Hg] Ron Doreen Other [facility] Other 04-02-2023 14:40-0400 Body height 168.91 cm Ron Doreen Other [facility] Other 04-02-2023 14:40-0400 Body mass index (BMI) [Ratio] 30.55 kg/m2 Ron Doreen Other [facility] Other 04-02-2023 14:40-0400 Body temperature 97 [degF] Ron Doreen Other [facility] Other 04-02-2023 14:40-0400 Body weight 87.18 kg Ron Doreen Other [facility] Other 04-02-2023 14:40-0400 Diastolic blood pressure 76 mm[Hg] Ron Doreen Other [facility] Other 04-02-2023 14:40-0400 Respiratory rate 18 /min Ron Doreen Other [facility] Other 04-02-2023 14:40-0400 SaO2% (BldA) [Mass fraction] 98 % Ron Doreen Other [facility] Other 04-02-2023 14:40-0400 Systolic blood pressure 183 mm[Hg] Ron Doreen Other [facility] Other 03-07-2023 09:20-0400 Body height 168.91 cm Ron Doreen Other [facility] Other 03-07-2023 09:20-0400 Body mass index (BMI) [Ratio] 30.52 kg/m2 Ron Doreen Other [facility] Other 03-07-2023 09:20-0400 Body temperature 97.1 [degF] Ron Doreen Other [facility] Other 03-07-2023 09:20-0400 Body weight 87.09 kg Ron Doreen Other [facility] Other 03-07-2023 09:20-0400 Diastolic blood pressure 72 mm[Hg] Ron Doreen Other [facility] Other 03-07-2023 09:20-0400 Respiratory rate 18 /min Ron Doreen Other [facility] Other 03-07-2023 09:20-0400 SaO2% (BldA) [Mass fraction] 97 % Ron Doreen Other [facility] Other 03-07-2023 09:20-0400 Systolic blood pressure 130 mm[Hg] Ron Doreen Other [facility] Other 12-20-2022 13:20-0400 Body height 168.91 cm Ron Doreen Other [facility] Other 12-20-2022 13:20-0400 Body mass index (BMI) [Ratio] 30.68 kg/m2 Ron Doreen Other [facility] Other 12-20-2022 13:20-0400 Body temperature 97.1 [degF] Ron Doreen Other [facility] Other 12-20-2022 13:20-0400 Body weight 87.54 kg Ron Doreen Other [facility] Other 12-20-2022 13:20-0400 Diastolic blood pressure 72 mm[Hg] Ron Doreen Other [facility] Other 12-20-2022 13:20-0400 Respiratory rate 18 /min Ron Doreen Other [facility] Other 12-20-2022 13:20-0400 SaO2% (BldA) [Mass fraction] 99 % Ron Doreen Other [facility] Other 12-20-2022 13:20-0400 Systolic blood pressure 139 mm[Hg] Ron Doreen Other [facility] Other 11-05-2022 14:00-0500 Body height 168.91 cm Ron Doreen Other [facility] Other 11-05-2022 14:00-0500 Body mass index (BMI) [Ratio] 30.59 kg/m2 Ron Doreen Other [facility] Other 11-05-2022 14:00-0500 Body temperature 96.8 [degF] Ron Doreen Other [facility] Other 11-05-2022 14:00-0500 Body weight 87.27 kg Ron Doreen Other [facility] Other 11-05-2022 14:00-0500 Diastolic blood pressure 72 mm[Hg] Ron Doreen Other [facility] Other 11-05-2022 14:00-0500 Respiratory rate 18 /min Ron Doreen Other [facility] Other 11-05-2022 14:00-0500 SaO2% (BldA) [Mass fraction] 98 % Ron Doreen Other [facility] Other 11-05-2022 14:00-0500 Systolic blood pressure 157 mm[Hg] Ron Doreen Other [facility] Other 09-27-2022 16:00-0500 Body height 168.91 cm Jana Monson Other [facility] Other 09-27-2022 16:00-0500 Body mass index (BMI) [Ratio] 30.55 kg/m2 Jana Monson Other [facility] Other 09-27-2022 16:00-0500 Body temperature 96.8 [degF] Jana Monson Other [facility] Other 09-27-2022 16:00-0500 Body weight 87.18 kg Jana Monson Other [facility] Other 09-27-2022 16:00-0500 Diastolic blood pressure 73 mm[Hg] Jana Monson Other [facility] Other 09-27-2022 16:00-0500 Respiratory rate 18 /min Jana Monson Other [facility] Other 09-27-2022 16:00-0500 SaO2% (BldA) [Mass fraction] 98 % Jana Monson Other [facility] Other 09-27-2022 16:00-0500 Systolic blood pressure 159 mm[Hg] Jana Monson Other [facility] Other 08-22-2022 12:00-0500 Body height 168.91 cm Ron Doreen Other [facility] Other 08-22-2022 12:00-0500 Body mass index (BMI) [Ratio] 30.65 kg/m2 Ron Doreen Other [facility] Other 08-22-2022 12:00-0500 Body temperature 96.9 [degF] Ron Doreen Other [facility] Other 08-22-2022 12:00-0500 Body weight 87.45 kg Ron Doreen Other [facility] Other 08-22-2022 12:00-0500 Diastolic blood pressure 75 mm[Hg] Ron Doreen Other [facility] Other 08-22-2022 12:00-0500 Respiratory rate 18 /min Ron Doreen Other [facility] Other 08-22-2022 12:00-0500 SaO2% (BldA) [Mass fraction] 96 % Ron Doreen Other [facility] Other 08-22-2022 12:00-0500 Systolic blood pressure 121 mm[Hg] Ron Doreen Other [facility] Other 05-08-2022 10:20-0400 Body height 168.91 cm Ron Doreen Other [facility] Other 05-08-2022 10:20-0400 Body mass index (BMI) [Ratio] 31.54 kg/m2 Ron Doreen Other [facility] Other 05-08-2022 10:20-0400 Body temperature 97.6 [degF] Ron Doreen Other [facility] Other 05-08-2022 10:20-0400 Body weight 89.99 kg Ron Doreen Other [facility] Other 05-08-2022 10:20-0400 Diastolic blood pressure 68 mm[Hg] Ron Doreen Other [facility] Other 05-08-2022 10:20-0400 Respiratory rate 18 /min Ron Doreen Other [facility] Other 05-08-2022 10:20-0400 SaO2% (BldA) [Mass fraction] 98 % Ron Doreen Other [facility] Other 05-08-2022 10:20-0400 Systolic blood pressure 131 mm[Hg] Ron Doreen Other [facility] Other 01-18-2022 10:20-0400 Body height 168.91 cm Ron Doreen Other [facility] Other 01-18-2022 10:20-0400 Body mass index (BMI) [Ratio] 31 kg/m2 Ron Doreen Other [facility] Other 01-18-2022 10:20-0400 Body temperature 96.4 [degF] Ron Doreen Other [facility] Other 01-18-2022 10:20-0400 Body weight 88.45 kg Ron Doreen Other [facility] Other 01-18-2022 10:20-0400 Diastolic blood pressure 74 mm[Hg] Ron Doreen Other [facility] Other 01-18-2022 10:20-0400 Respiratory rate 18 /min Ron Doreen Other [facility] Other 01-18-2022 10:20-0400 SaO2% (BldA) [Mass fraction] 97 % Ron Doreen Other [facility] Other 01-18-2022 10:20-0400 Systolic blood pressure 170 mm[Hg] Ron Doreen Other [facility] Other Encounters Encounter Date Encounter Type Care Provider Facility Start: 10-22-2023 End: 10-22-2023 ambulatory [facility] CRESPO Not Available Start: 10-15-2023 End: 10-15-2023 ambulatory Ron Doreen Other [facility] Other Start: 10-15-2023 Office outpatient visit 15 minutes Ron Doreen [facility] Start: 10-08-2023 End: 10-08-2023 ambulatory Aziz Bakhous Other [facility] Other Start: 10-08-2023 Telephone encounter Aziz Bakhous [facility] Start: 09-15-2023 End: 09-15-2023 ambulatory Ron Doreen Other [facility] Other Start: 09-15-2023 Telephone encounter Ron Doreen [facility] Start: 09-09-2023 End: 09-09-2023 ambulatory Ron Doreen Other [facility] Other Start: 09-09-2023 Telephone encounter Ron Doreen [facility] Start: 08-27-2023 (INJECTION) INJECTION Aziz Bakhous [facility] Start: 08-27-2023 End: 08-27-2023 ambulatory Aziz Bakhous Other [facility] Other Start: 08-15-2023 (INJECTION) INJECTION Ron D[facility]en [facility] Start: 08-15-2023 End: 08-15-2023 ambulatory Ron Doreen Other [facility] Other Start: 08-13-2023 (INJECTION) INJECTION Ron D[facility] Start: 08-13-2023 End: 08-13-2023 ambulatory Ron Doreen Other [facility] Other Start: 08-01-2023 End: 08-01-2023 ambulatory Ron Doreen Other [facility] Other Start: 08-01-2023 Office outpatient visit 15 minutes Ron Doreen [facility] Start: 06-24-2023 End: 06-24-2023 ambulatory Ron Doreen Other [facility] Other Start: 06-24-2023 Office outpatient visit 10 minutes Ron Doreen [facility] Start: 06-06-2023 End: 06-06-2023 ambulatory Ron Doreen Other [facility] Other Start: 06-06-2023 Office outpatient visit 15 minutes Ron Doreen [facility] Start: 04-30-2023 End: 04-30-2023 ambulatory Ron Doreen Other [facility] Other Start: 04-30-2023 Office outpatient visit 15 minutes Ron Doreen [facility] Start: 04-06-2023 (INJECTION) INJECTION Ron D[facility]en [facility] Start: 04-06-2023 End: 04-06-2023 ambulatory Ron Doreen Other [facility] Other Start: 04-06-2023 Telephone encounter Ron Doreen [facility] Start: 04-02-2023 End: 04-02-2023 ambulatory Ron Doreen Other [facility] Other Start: 04-02-2023 Office outpatient visit 15 minutes Ron Doreen [facility] Start: 04-02-2023 Telephone encounter Ron Doreen [facility] Start: 03-07-2023 End: 03-07-2023 ambulatory Ron Doreen Other [facility] Other Start: 03-07-2023 Office outpatient visit 15 minutes Ron Doreen [facility] Start: 01-22-2023 End: 01-23-2023 ambulatory RON DOREEN Facility:[facility] Start: 12-20-2022 End: 12-20-2022 ambulatory Ron Doreen Other [facility] Other Start: 12-20-2022 Office outpatient visit 15 minutes Ron Doreen [facility] Start: 12-17-2022 End: 12-18-[address] DHRUV GUTIERRES . Facility:[facility] Start: 12-10-2022 End: 12-11-2022 ambulatory RON DOREEN Facility:[facility] Start: 11-20-2022 End: 11-21-[address] BENI APARICIO Facility:[facility] Start: 11-05-2022 End: 11-05-2022 ambulatory Ron Doreen Other [facility] Other Start: 11-05-2022 Office outpatient visit 15 minutes Ron Doreen [facility] Start: 10-29-2022 End: 10-30-[address] JANA MONSON Facility:[facility] Start: 10-24-2022 End: 10-24-[address] LILLIAN ACOSTA . Facility:[facility] Start: 10-24-2022 End: 10-25-[address] DHRUV GUTIERRES . Facility:[facility] Start: 09-27-2022 End: 09-27-2022 ambulatory Jana Monson Other [facility] Other Start: 09-27-2022 Office outpatient visit 15 minutes Jana Monson [facility] Start: 09-18-2022 End: 09-19-2022 ambulatory RON DOREEN Facility:[facility] Start: 09-11-2022 End: 09-11-[address] DHRUV GUTIERRES . Facility:[facility] Start: 08-22-2022 End: 08-22-2022 ambulatory Ron Doreen Other [facility] Other Start: 08-22-2022 Office outpatient visit 15 minutes Ron Doreen [facility] Start: 08-13-2022 End: 08-14-2022 ambulatory RON DOREEN Facility:[facility] Start: 06-25-2022 End: 06-26-[address] DHRUV GUTIERRES . Facility:[facility] Start: 06-18-2022 End: 06-18-[address] DHRUV GUTIERRES . Facility:[facility] Start: 06-01-2022 End: 06-02-[address] YANET HUERTA Facility:[facility] Start: 05-28-2022 End: 05-28-2022 ambulatory Ron Doreen Other [facility] Other Start: 05-28-2022 Telephone encounter Ron Doreen [facility] Start: 05-21-2022 End: 05-22-[address] DHRUV GUTIERRES . Facility:[facility] Start: 05-16-2022 End: 05-16-2022 ambulatory Ron Doreen Other [facility] Other Start: 05-16-2022 Telephone encounter Ron Doreen [facility] Start: 05-10-2022 End: 05-10-2022 ambulatory Ron Doreen Other [facility] Other Start: 05-10-2022 Telephone encounter Ron Doreen [facility] Start: 05-08-2022 End: 05-08-2022 ambulatory Ron Doreen Other [facility] Other Start: 05-08-2022 Office outpatient visit 25 minutes Ron Doreen [facility] Start: 05-02-2022 End: 05-03-2022 ambulatory RON DOREEN Facility: Start: 04-24-2022 End: 04-24-2022 ambulatory Mary Anne Ackerman Other [facility] Other Start: 04-24-2022 Telephone encounter Mary Anne Ackerman [facility] Start: 01-18-2022 End: 01-18-2022 ambulatory Ron Doreen Other [facility] Other Start: 01-18-2022 Office outpatient visit 25 minutes Ron Doreen [facility] Start: 05-21-2017 End: 05-22-2017 Ambulatory DEFAULT PHYSICIAN Facility:[facility] Payers Date Payer Category Payer Medicare [id number] 1945 Unknown [id number] 2.16.84 [id number] 1945 Unknown [id number] 2.16.84 0.1.831194.3.579.2.593 1944 Unknown [id number] 2.16.84 0.1.073130.3.579.2.593 1944 Unknown [id number] 2.16.84 0.1.924864.3.579.2.593 1944 Unknown [id number] 2.16.84 0.1.399615.3.579.2.593 1944 Unknown [id number] 2.16.84 0.1.515274.3.579.2.593 1944 Unknown [id number] 2.16.84 0.1.137045.3.579.2.593 1944 Unknown [id number] 2.16.84 0.1.931164.3.579.2.593 1944 Unknown [id number] 2.16.84 0.1.727152.3.579.2.593 1944 Unknown [id number] 2.16.84 0.1.920353.3.579.2.593 1944 Unknown [id number] 2.16.84 0.1.084753.3.579.2.593 1944 Unknown [id number] 2.16.84 0.1.825923.3.579.2.593 1944 Unknown [id number] 2.16.84 0.1.698213.3.579.2.593 1944 Unknown [id number] 2.16.84 0.1.084359.3.579.2.593 1944 Unknown [id number] 2.16.84 0.1.008606.3.579.2.593 1944 Unknown [id number] 2.16.84 0.1.636503.3.579.2.593 1944 Unknown [id number] 2.16.84 0.1.190486.3.579.2.1259 Unknown Social History Date Type Detail Facility Unknown if ever smoked [facility] Other Sex Assigned At Sex Assigned At Bir th [facility] Other Clinical Notes 01-18-2022 to 10-15-2023 Note [...] potassium improved with dietary restriction and Lasix. [facility] Other 12-04-2023 Evaluation note* Encounter Date Diagnosis [...] 4, GFR 15-29 ml/min (ICD-10 - N18.4) [facility] Other 11-21-2023 Evaluation note* Encounter Date Diagnosis Assessment Notes Treatment Notes Treatment Clinical Notes Aug, Anemia of renal disease (ICD-10 - D63.1) Aug, CKD (chronic kidney disease) stage 4, GFR 15-29 ml/min (ICD-10 - N18.4) [facility] Other 11-09-2023 Evaluation note* Encounter Date Diagnosis [...] of kidney mass hydronephrosis or kidney stones. [facility] Other 10-26-2023 Evaluation note* Encounter Date Diagnosis [...] potassium improved with dietary restriction and Lasix. [facility] Other 09-18-2023 Evaluation note* Encounter Date Diagnosis [...] potassium improved with dietary restriction and Lasix. [facility] Other 08-31-2023 Evaluation note* Encounter Date Diagnosis [...] potassium improved with dietary restriction and Lasix. [facility] Other 07-25-2023 Evaluation note* Encounter Date Diagnosis [...] to normal with dietary restriction and Lasix. [facility] Other 07-01-2023 Evaluation note* Encounter Date Diagnosis Assessment Notes Treatment Notes Treatment Clinical Notes Apr, CKD (chronic kidney disease) stage 4, GFR 15-29 ml/min (ICD-10 - N18.4) Apr, Anemia of renal disease (ICD-10 - D63.1) [facility] Other 06-27-2023 Evaluation note* Encounter Date Diagnosis [...] to normal with dietary restriction and Lasix. [facility] Other 06-01-2023 Evaluation note* Encounter Date Diagnosis [...] potassium diet and provide information about it. [facility] Other 03-16-2023 Evaluation note* Encounter Date Diagnosis [...] to Continue Vit D 5000 units daily [facility] Other 01-30-2023 Evaluation note* Encounter Date Diagnosis [...] to Continue Vit D 5000 units daily [facility] Other 12-22-2022 Evaluation note* Encounter Date Diagnosis [...] to Continue Vit D 5000 units daily [facility] Other 11-16-2022 Evaluation note* Encounter Date Diagnosis [...] to Continue Vit D 5000 units daily [facility] Other 08-04-2022 Evaluation note* Encounter Date Diagnosis Assessment Notes Treatment Notes Treatment Clinical Notes May, Hypertensive chronic kidney disease with stage 1 through stage 4 chronic kidney disease, or unspecified chronic kidney disease (ICD-10 - I12.9) [facility] Other 08-02-2022 Evaluation note* Encounter Date Diagnosis [...] to Continue Vit D 5000 units daily [facility] Other 07-19-2022 Evaluation note* Encounter Date Diagnosis Assessment Notes Treatment Notes Treatment Clinical Notes Apr, Hypertensive chronic kidney disease with stage 1 through stage 4 chronic kidney disease, or unspecified chronic kidney disease (ICD-10 - I12.9) [facility] Other 04-14-2022 Evaluation note* Encounter Date Diagnosis [...] to take Vit D 1000 units daily [facility] Other Evaluation [facility]No [facility] Other History general Narrative - Reported* Type [...] History SEE ABOVE Hospitalization History COVID 09/2020 [facility] Other History general Narrative - Reported* Type [...] History SEE ABOVE Hospitalization History COVID 09/2020 [facility] Other [facility] general Narrative - Reported* Type Description Date [...] History SEE ABOVE Hospitalization History COVID 09/2020 [facility] Other History general Narrative - [facility] Other Summary Purpose Family History No Family History Records FoundNo Family History Records FoundNo Family History Records Found Advance Directives No Advanced Directives Records FoundNo Advanced Directives Records FoundNo Advanced Directives Records Found Additional Source Comments INFORMATION SOURCE (unrecogn ized section and content) DATE CREATED AUTHOR 04/02/2018 [facility] DATE CREATED AUTHOR AUTHOR'S ORGANIZ ATION 01/27/2023 [facility] DATE CREATED AUTHOR AUTHOR'S ORGANIZ ATION 10/23/2023 [facility] EPIC REASON FOR VISIT (unrecogniz [...] BE BASED ON THE PRIMARY CLINICAL RECORDS. [employer] [facility]. provides no warranty or guarantee of the accuracy or completeness of information in this document.
--- OUTSIDE RECORDS SUMMARY | 2023-10-31 09:52 | XMS_ITS | CCD ---
Author Name Unknown Address [address] [place] [address] Organization [facility] Care Team Providers Care Youth Court Judge Name Role Phone PHYSICIAN, DEFAULT Unavailable Unavailable PHYSICIAN, DEFAULT Unavailable Unavailable Doreen, Ron Unavailable Óscar Ackermanduc Unavailable Iona Jana Unavailable BHAVIK ., DR BARTLETT Consulting Unavailable [...] HOY ., DR BARTLETT Primary Care Unavailable MRAVIN, ERNESTINA Attending Unavailable MARVIN, ERNESTINA Admitting Unavailable [...] Facility (20 sources) amLODIPine Drug Allergy Unknown [facility] Other (18 sources) Amoxicillin / Clavulanate Drug Allergy Unknown [employer] Other (20 sources) Contrast media Propensity to adverse reactions Unknown [employer] Other (2 sources) Doxazosin; Translations: [doxazosin] Drug Allergy Unknown [employer] Other (20 sources) Sulfamethoxazole / Trimethoprim Drug Allergy Unknown [employer] Other (20 sources) Doxazosin Drug Allergy Unknown [employer] Other (9 sources) Amoxicillin / Clavulanate; Translations: [Augmentin] Drug Allergy 11-16-19 16 Unknown [facility] (1 source) amLODIPine Drug Allergy 04-25-20 14 [facility] (1 source) Sulfamethoxazole / Trimethoprim Drug Allergy 03-09-20 13 [facility] Medications Current Medications Medication Drug [...] Active docusate sodium 50 mg / sennosides, halfway 8.6 mg oral tablet (3 sources) take 1 tablet by mouth every twelve hours Sennosides-Docusate Sodium 8.6-50 MG 1 tablet in the evening as needed Orally every 12 hours Active epoetin johnna-epbx 77270 UNT/ML Injectable Solution [Retacrit] (14 sources) Retacrit 85375 U NIT/ML as directed Injection Active ferrous [...] a day Active take 2 tablets by [facility] every twenty-four hours Liothyronine Sodium 5 MCG 2 tablets on a n empty stomach Orally Once a day Active take 2 tablets by [facility] every twenty-four hours lisinopril 10 mg [...] tablet Orally Once a day Active retacrit 70298 unit/ml solution (3 sources) Retacrit 38938 UNIT/ML as directed Injection Active Sennosides-Docusate Sodium [...] [Volume fraction] 28.8 % Critically low 36.0-48.0 [facility] Comment on above: Performed By: #### H H #### [facility] [address] [place] [address] Dr. Ember Teague Hemoglobin (Bld) [Mass/Vol] 9.6 g/dL Critically low 12.0-16.0 [facility] Comment on above: Performed By: #### H H #### [facility] [address] [place] [address] Dr. Ember Teague MCH (RBC) [Entitic mass] 30.7 pg Normal 26.7-34.0 [facility] Comment on above: Performed By: #### H H #### [facility] [address] [place] [address] Dr. Ember Teague MCHC (RBC) [Mass/Vol] 33.3 g/dL Normal 29.9-35.2 [facility] Comment on above: Performed By: #### H H #### [facility] [address] [place] [address] Dr. Ember Teague MCV (RBC) [Entitic vol] 92.0 fL Normal 81.0-99.0 [facility] Comment on above: Performed By: #### H H #### [facility] [address] [place] [address] Dr. Ember Teague PLT 214 103/ul Normal 150-450 [facility] Comment on above: Performed By: #### H H #### [facility] [address] [place] [address] Dr. Ember Teague RBC 3.13 106/ul Critically low 4.20-5.40 [facility] Comment on above: Performed By: #### H H #### [facility] [address] [place] [address] Dr. Ember Teague WBC 7.4 103/ul Normal 4.0-11.0 [facility] Comment on above: Performed By: #### H H #### [facility] [address] [place] [address] Dr. Ember Teague MAGNESIUMon 01-22-2023 Magnesium [Mass/Vol] 1.8 mg/dL Normal 1.8-2.4 [facility] Comment on above: Performed By: #### M G, RENAL #### [facility] [address] [place] [address] Dr. Ember Teague RENAL FUNCTION PANELon 01-22 Albumin [Mass/Vol] 3.6 g/dL Normal 3.4-5.0 [facility] Comment on above: Performed By: #### M G, RENAL #### [facility] [address] [address] [address] Ember Teague Calcium [Mass/Vol] 9.7 mg/dL Normal 8.5-10.1 [facility] Comment on above: Performed By: #### M G, RENAL #### [facility] [address] [address] [address] Ember Teague Chloride [Moles/Vol] 105 mmol/L Normal 98-107 [facility] Comment on above: Performed By: #### M G, RENAL #### [facility] [address] [place] [address] Dr. Ember Teague CO2 [Moles/Vol] 22.6 mmol/L Normal 21.0-32.0 [facility] Comment on above: Performed By: #### M Girish, RENAL #### [facility] [address] [address] [address] Ember Teague Creatinine [Mass/Vol] 2.18 mg/dL Critically high 0.55-1.02 [facility] Comment on above: Performed By: #### Lico Stout, RENAL #### [facility] [address] [place] [address] Dr. Ember Teague EGFR-AF SAO TOMEAN 26 mL/min/1.73m2 Critically low >=60 [facility] Comment on above: Performed By: #### Lico Stout, RENAL #### [facility] [address] [address] [address] Ember Teague EGFR-NON AF SAO TOMEAN 22 mL/min/1.73m2 Critically low >=60 [facility] Comment on above: Performed By: #### M G, RENAL #### [facility] [address] [address] [address] Ember Teague Glucose [Mass/Vol] 134 mg/dL Critically high 74-106 [facility] Comment on above: Performed By: #### M G, RENAL #### [facility] [address] [address] [address] Ember Teague Phosphate [Mass/Vol] 4.6 mg/dL Normal 2.6-4.7 [facility] Comment on above: Performed By: #### M G, RENAL #### [facility] [address] [address] [address] Ember Teague Potassium [Moles/Vol] 5.1 mmol/L Normal 3.5-5.1 [facility] Comment on above: Performed By: #### M G, RENAL #### [facility] [address] [address] [address] Ember Teague Sodium [Moles/Vol] 138 mmol/L Normal 136-145 [facility] Comment on above: Performed By: #### M G, RENAL #### [facility] [address] [address] [address] Ember Teague Urea nitrogen [Mass/Vol] 61.0 mg/dL Critically high 7.0-18.0 [facility] Comment on above: Performed By: #### M G, RENAL #### [facility] [address] [address] [address] Ember Teague MG MAMM SCREEN 3D MAY CADon 12-17-2022 MG MAMM SCREEN 3D MAY CAD Patient: KYLAH BERGER Exam Date: 12/17/2022 : 1945 Gender:F Ordering : DR DHRUV GUTIERRES . Admission #: [id number] Family : Order #: [id number] CLICK HERE TO VIEW EXAM RADIOLOGY REPORT [...] lung cancer at age 61. LOCATION: [facility] BREAST COMPOSITION: Scattered areas fibroglandular density. [...] MD on 12/17/2022 at 11:59 Normal [facility] FERRITINon 12-10-2022 Ferritin [Mass/Vol] 681.0 ng/mL Critically high 8.0-252.0 [facility] Comment on above: Performed By: #### P THINT #### [facility] [address] [place] [address] Dr. Ember Teague HEMOGRAM AND PLATELon 2022 Hematocrit (Bld) [Volume fraction] 27.1 % Critically low 36.0-48.0 [facility] Comment on above: Performed By: #### C VDTBH #### [facility] [address] [place] [address] Dr. Ember Teague Hemoglobin (Bld) [Mass/Vol] 9.7 g/dL Critically low 12.0-16.0 [facility] Comment on above: Performed By: #### C VDTBH #### [facility] [address] [place] [address] Dr. Ember Teague MCH (RBC) [Entitic mass] 31.4 pg Normal 26.7-34.0 [facility] Comment on above: Performed By: #### C VDTBH #### [facility] [address] [place] [address] Dr. Ember Teague MCHC (RBC) [Mass/Vol] 35.8 g/dL Critically high 29.9-35.2 [facility] Comment on above: Performed By: #### C VDTBH #### [facility] [address] [place] [address] Dr. Ember Teague MCV (RBC) [Entitic vol] 87.7 fL Normal 81.0-99.0 [facility] Comment on above: Performed By: #### C VDTBH #### [facility] [address] [address] [address] Ember Teague PLT 218 103/ul Normal 150-450 [facility] Comment on above: Performed By: #### C VDTBH #### [facility] [address] [place], [place] [address] Dr. Ember Teague RBC 3.09 106/ul Critically low 4.20-5.40 [facility] Comment on above: Performed By: #### C VDTBH #### [facility] [address] [address] [address] Ember Teague WBC 6.6 103/ul Normal 4.0-11.0 [facility] Comment on above: Performed By: #### C VDTBH #### [facility] [address] [place] [address] Dr. Ember Teague IRON AND TIBCon 12-10-2022 % SATURATION 30.2 % Normal [facility] Comment on above: Performed By: #### P THINT #### [facility] [address] [address] [address] Ember Teague Iron [Mass/Vol] 84.0 ug/dL Normal 50.0-170.0 [facility] Comment on above: Performed By: #### P THINT #### [facility] [address] [place] [address] Dr. Ember Teague TIBC DIRECT 278.0 ug/dL Normal 250.0-450.0 [facility] Comment on above: Performed By: #### P THINT #### [facility] [address] [address] [address] Ember Teague XR FOOT MAY MIN [...] BENI APARICIO Date: 2022-11-20 14:03 Normal [facility] HEMOGRAM AND PLATELon 2022 Hematocrit (Bld) [Volume fraction] 27.7 % Critically low 36.0-48.0 [facility] Comment on above: Performed By: #### R ENAL #### [facility] [address] [place] [address] Dr. Ember Teague Hemoglobin (Bld) [Mass/Vol] 10.0 g/dL Critically low 12.0-16.0 [facility] Comment on above: Performed By: #### R ENAL #### [facility] [address] [place] [address] Dr. Ember Teague MCH (RBC) [Entitic mass] 31.6 pg Normal 26.7-34.0 [facility] Comment on above: Performed By: #### R ENAL #### [facility] [address] [place] [address] Dr. Ember Teague MCHC (RBC) [Mass/Vol] 36.1 g/dL Critically high 29.9-35.2 [facility] Comment on above: Performed By: #### R ENAL #### [facility] [address] [place] [address] Dr. Ember Teague MCV (RBC) [Entitic vol] 87.7 fL Normal 81.0-99.0 [facility] Comment on above: Performed By: #### R ENAL #### [facility] [address] [place] [address] Dr. Ember Teague PLT 182 103/ul Normal 150-450 [facility] Comment on above: Performed By: #### R ENAL #### [facility] [address] [place] [address] Dr. Ember Teague RBC 3.16 106/ul Critically low 4.20-5.40 [facility] Comment on above: Performed By: #### R ENAL #### [facility] [address] [place] [address] Dr. Ember Teague WBC 6.8 103/ul Normal 4.0-11.0 [facility] Comment on above: Performed By: #### R ENAL #### [facility] [address] [place] [address] Dr. Ember Teague PROF CHEM 8 (BAS METB)on Anion gap [Moles/Vol] 17.6 mmol/L Normal [facility] Comment on above: Performed By: #### C VDTBH #### [facility] [address] [place] [address] Dr. Ember Teague Calcium [Mass/Vol] 9.0 mg/dL Normal 8.5-10.1 [facility] Comment on above: Performed By: #### C VDTBH #### [facility] [address] [place] [address] Dr. Ember Teague Chloride [Moles/Vol] 104 mmol/L Normal 98-107 [facility] Comment on above: Performed By: #### C VDTBH #### [facility] [address] [place] [address] Dr. Ember Teague CO2 [Moles/Vol] 22.2 mmol/L Normal 21.0-32.0 [facility] Comment on above: Performed By: #### C VDTBH #### [facility] [address] [place] [address] Dr. Ember Teague Creatinine [Mass/Vol] 2.03 mg/dL Critically high 0.55-1.02 [facility] Comment on above: Performed By: #### C VDTBH #### [facility] [address] [place] [address] Dr. Ember Teague EGFR-AF SAO TOMEAN 29 mL/min/1.73m2 Critically low >=60 [facility] Comment on above: Performed By: #### C VDTBH #### [facility] [address] [place], [place] [id number] Dr. Ember Teague EGFR-NON AF SAO TOMEAN 24 mL/min/1.73m2 Critically low >=60 [facility] Comment on above: Performed By: #### C VDTBH #### [facility] [address] [place] [address] Dr. Ember Teague Glucose [Mass/Vol] 154 mg/dL Critically high 74-106 T [facility] Comment on above: Performed By: #### C VDTBH #### [facility] [address] [place] [address] Dr. Ember Teague Potassium [Moles/Vol] 4.8 mmol/L Normal 3.5-5.1 [facility] Comment on above: Performed By: #### C VDTBH #### [facility] [address] [place] [address] Dr. Ember Teague Sodium [Moles/Vol] 139 mmol/L Normal 136-145 [facility] Comment on above: Performed By: #### C VDTBH #### [facility] [address] [place] [address] Dr. Ember Teague Urea nitrogen [Mass/Vol] 43.0 mg/dL Critically high 7.0-18.0 [facility] Comment on above: Performed By: #### C VDTBH #### [facility] [address] [place] [address] Dr. Ember Teague Urea nitrogen/Creatinine [Mass ratio] 21.2 mg/mg Normal [facility] Comment on above: Performed By: #### C VDTBH #### [facility] [address] [place] [address] Dr. Ember Teague CULTURE SPUTUMon 10-24-2022 CULTURE SPUTUM Culture Observations : Beta lactamase positive Isolate 1 Haemophilus influenzae Moderate growth of Normal [facility] Comment on above: Performed By: #### R ENAL #### [facility] [address] [place] [address] Dr. Ember Teague SPUTUM GRAM STAINon 10-24-19 COMMENTS Normal [facility] Comment on above: Performed By: #### R ENAL #### [facility] [address] [address] [address] Ember Teague DIPHTHEROIDS Normal [facility] Comment on above: Performed By: #### R ENAL #### [facility] [address] [address] [address] Ember Teague EPITHELIALS >25 Normal [facility] Comment on above: Performed By: #### R ENAL #### [facility] [address] [address] [address] Ember Teague FUNGAL ELEMENTS Normal [facility] Comment on above: Performed By: #### R ENAL #### [facility] [address] [address] [address] Ember Teague [facility] Comment on above: Performed By: #### R ENAL #### [facility] [address] [address] [address] Ember Teague GRAM NEG DIPPLOCOCCI FEW Normal [facility] Comment on above: Performed By: #### R ENAL #### [facility] [address] [address] [address] Ember Teague GRAM POS [facility]AC[facility]I [facility] Comment on above: Performed By: #### R ENAL #### [facility] [address] [address] [address] Ember Teague GRAM POSITIVE COCCI MANY Normal [facility] Comment on above: Performed By: #### R ENAL #### [facility] [address] [address] [address] Ember Teague WBC (Bld) [#/Vol] 10*3/uL Normal [facility] Comment on above: Performed By: #### R ENAL #### [facility] [address] [address] [address] Ember Teague XR CHEST 2 Von [...] ANGELINA ANDERSRASHEED Date: 2022-10-24 16:22 Normal [facility] FERRITINon 09-18-2022 Ferritin [Mass/Vol] 612.0 ng/mL Critically high 8.0-252.0 [facility] Comment on above: Performed By: #### F ERR, FETIBC #### [facility] [address] [place] [address] Dr. Ember Teague HEMOGRAM AND PLATELon 2021 Hematocrit (Bld) [Volume fraction] 28.1 % Critically low 36.0-48.0 [facility] Comment on above: Performed By: #### C BC #### [facility] [address] [place] [address] Dr. Ember Teague Hemoglobin (Bld) [Mass/Vol] 9.7 g/dL Critically low 12.0-16.0 [facility] Comment on above: Performed By: #### C BC #### [facility] [address] [place] [address] Dr. Ember Teague MCH (RBC) [Entitic mass] 31.3 pg Normal 26.7-34.0 [facility] Comment on above: Performed By: #### C BC #### [facility] [address] [place] [address] Dr. Ember Teague MCHC (RBC) [Mass/Vol] 34.5 g/dL Normal 29.9-35.2 [facility] Comment on above: Performed By: #### C BC #### [facility] [address] [place] [address] Dr. Ember Teague MCV (RBC) [Entitic vol] 90.6 fL Normal 81.0-99.0 [facility] Comment on above: Performed By: #### C BC #### [facility] [address] [place] [address] Dr. Ember Teague PLT 183 103/ul Normal 150-450 [facility] Comment on above: Performed By: #### C BC #### [facility] [address] [address] [address] Ember Teague RBC 3.10 106/ul Critically low 4.20-5.40 [facility] Comment on above: Performed By: #### C BC #### [facility] [address] [address] [address] Ember Teague WBC 7.2 103/ul Normal 4.0-11.0 [facility] Comment on above: Performed By: #### C BC #### [facility] [address] [address] [address] Ember Teague IRON AND TIBCon 09-18-2022 % SATURATION 36.0 % Normal [facility] Comment on above: Performed By: #### F ERR, FETIBC #### [facility] [address] [place] [address] Dr. Ember Teague Iron [Mass/Vol] 77.0 ug/dL Normal 50.0-170.0 [facility] Comment on above: Performed By: #### F ERR, FETIBC #### [facility] [address] [address] [address] Ember Teague TIBC DIRECT 214.0 ug/dL Critically low 250.0-450.0 [facility] Comment on above: Performed By: #### F ERR, FETIBC #### [facility] [address] [place] [address] Dr. Ember Teague RENAL FUNCTION PANELon 09-18 Albumin [Mass/Vol] 3.7 g/dL Normal 3.4-5.0 [facility] Comment on above: Performed By: #### R ENAL #### [facility] [address] [address] [address] Ember Teague Calcium [Mass/Vol] 9.5 mg/dL Normal 8.5-10.1 [facility] Comment on above: Performed By: #### R ENAL #### [facility] [address] [place] [address] Dr. Ember Teague Chloride [Moles/Vol] 103 mmol/L Normal 98-107 [facility] Comment on above: Performed By: #### R ENAL #### [facility] [address] [address] [address] Ember Teague CO2 [Moles/Vol] 21.1 mmol/L Normal 21.0-32.0 [facility] Comment on above: Performed By: #### R ENAL #### [facility] [address] [address] [address] Ember Teague Creatinine [Mass/Vol] 1.85 mg/dL Critically high 0.55-1.02 [facility] Comment on above: Performed By: #### R ENAL #### [facility] [address] [address] [address] Ember Teague EGFR-AF SAO TOMEAN 32 mL/min/1.73m2 Critically low >=60 [facility] Comment on above: Performed By: #### R ENAL #### [facility] [address] [address] [address] Ember Teague EGFR-NON AF SAO TOMEAN 26 mL/min/1.73m2 Critically low >=60 [facility] Comment on above: Performed By: #### R ENAL #### [facility] [address] [address] [address] Ember Teague Glucose [Mass/Vol] 183 mg/dL Critically high 74-106 T [facility] Comment on above: Performed By: #### R ENAL #### [facility] [address] [address] [address] Ember Teague Phosphate [Mass/Vol] 3.7 mg/dL Normal 2.6-4.7 [facility] Comment on above: Performed By: #### R ENAL #### [facility] [address] [address] [address] Ember Teague Potassium [Moles/Vol] 4.9 mmol/L Normal 3.5-5.1 [facility] Comment on above: Performed By: #### R ENAL #### [facility] [address] [address] [address] Ember Teague Sodium [Moles/Vol] 138 mmol/L Normal 136-145 [facility] Comment on above: Performed By: #### R ENAL #### [facility] [address] [place] [address] Dr. Ember Teague Urea nitrogen [Mass/Vol] 40.0 mg/dL Critically high 7.0-18.0 [facility] Comment on above: Performed By: #### R ENAL #### [facility] [address] [place] [address] Dr. Ember Teague CULTURE URINEon 09-15-2022 CULTURE [...] F Trimethoprim/Sulfamet hoxazole <=20 S F Normal [facility] Comment on above: Performed By: #### R ENAL #### [facility] [address] [place] [address] Dr. Ember Teague BNPon 09-11-2022 Natriuretic peptide B (Bld) [Mass/Vol] 408.0 pg/mL Normal <=1,800.0 [facility] Comment on above: Performed By: #### P THINT #### [facility] [address] [place] [address] Dr. Ember Teague CBC AUTO DIFFon 09-11-2022 BASO # 0.0 103/ul Normal 0.0-0.1 [facility] Comment on above: Performed By: #### C BC #### [facility] [address] [place] [address] Dr. Ember Teague Basophils/100 WBC (Bld) 0.3 % Normal 0.2-2.0 [facility] Comment on above: Performed By: #### C BC #### [facility] [address] [place] [address] Dr. Ember Teague EO # 0.1 103/ul Normal 0.0-0.7 [facility] Comment on above: Performed By: #### C BC #### [facility] [address] [place] [address] Dr. Ember Teague Eosinophils/100 WBC (Bld) 1.9 % Normal 0.9-7.0 [facility] Comment on above: Performed By: #### C BC #### [facility] [address] [place] [address] Dr. Ember Teague Erythrocyte distribution width (RBC) [Ratio] 15.2 % Critically high 11.0-15.0 [facility] Comment on above: Performed By: #### C BC #### [facility] [address] [place] [address] Dr. Ember Teague Hematocrit (Bld) [Volume fraction] 26.6 % Critically low 36.0-48.0 [facility] Comment on above: Performed By: #### C BC #### [facility] [address] [place] [address] Dr. Ember Teague Hemoglobin (Bld) [Mass/Vol] 9.0 g/dL Critically low 12.0-16.0 [facility] Comment on above: Performed By: #### C BC #### [facility] [address] [place] [address] Dr. Ember Teague IG # 0.02 10e3/ul Normal 0.00-0.03 [facility] Comment on above: Performed By: #### C BC #### [facility] [address] [place] [address] Dr. Ember Teague IG % 0.3 % Normal 0.0-0.5 [facility] Comment on above: Performed By: #### C BC #### [facility] [address] [place] [address] Dr. Ember Teague LYMPH # 1.9 103/ul Normal 1.2-3.8 [facility] Comment on above: Performed By: #### C BC #### [facility] [address] [place] [address] Dr. Ember Teague Lymphocytes/100 WBC (Bld) 32.4 % Normal 20.5-60.0 [facility] Comment on above: Performed By: #### C BC #### [facility] [address] [place] [address] Dr. Ember Teague MANUAL DIFF REQ NO Normal [facility] Comment on above: Performed By: #### C BC #### [facility] [address] [place] [address] Dr. Ember Teague MCH (RBC) [Entitic mass] 31.1 pg Normal 26.7-34.0 [facility] Comment on above: Performed By: #### C BC #### [facility] [address] [place] [address] Dr. Ember Teague MCHC (RBC) [Mass/Vol] 33.8 g/dL Normal 29.9-35.2 [facility] Comment on above: Performed By: #### C BC #### [facility] [address] [place] [address] Dr. Ember Teague MCV (RBC) [Entitic vol] 92.0 fL Normal 81.0-99.0 [facility] Comment on above: Performed By: #### C BC #### [facility] [address] [place] [address] Dr. Ember Teague MONO # 0.6 103/ul Normal 0.3-0.8 [facility] Comment on above: Performed By: #### C BC #### [facility] [address] [place] [address] Dr. Ember Teague Monocytes/100 WBC (Bld) 10.0 % Normal 1.7-12.0 [facility] Comment on above: Performed By: #### C BC #### [facility] [address] [place] [address] Dr. Ember Teague NEUT # 3.2 103/ul Normal 1.4-6.5 [facility] Comment on above: Performed By: #### C BC #### [facility] [address] [place] [address] Dr. Ember Teague Neutrophils/100 WBC (Bld) 55.1 % Normal 43.0-75.0 [facility] Comment on above: Performed By: #### C BC #### [facility] [address] [place] [address] Dr. Ember Teague Platelet mean volume (Bld) [Entitic vol] 9.4 fL Critically low 9.5-13.5 [facility] Comment on above: Performed By: #### C BC #### [facility] [address] [place] [address] Dr. Ember Teague PLT 196 103/ul Normal 150-450 [facility] Comment on above: Performed By: #### C BC #### [facility] [address] [place] [address] Dr. Ember Teague RBC 2.89 106/ul Critically low 4.20-5.40 [facility] Comment on above: Performed By: #### C BC #### [facility] [address] [place] [address] Dr. Ember Teague WBC 5.8 103/ul Normal 4.0-11.0 [facility] Comment on above: Performed By: #### C BC #### [facility] [address] [place] [address] Dr. Ember Teague PROF 14(COMP METB)on 022 Albumin [Mass/Vol] 3.7 g/dL Normal 3.4-5.0 [facility] Comment on above: Performed By: #### P THINT #### [facility] [address] [place] [address] Dr. Ember Teague Albumin/Globulin [Mass ratio] 1.0 {ratio} Normal [facility] Comment on above: Performed By: #### P THINT #### [facility] [address] [place] [address] Dr. Ember Teague ALP [Catalytic activity/Vol] 79 U/L Normal 46-116 [facility] Comment on above: Performed By: #### P THINT #### [facility] [address] [place] [address] Dr. Ember Teague ALT [Catalytic activity/Vol] 24 U/L Normal 14-59 [facility] Comment on above: Performed By: #### P THINT #### [facility] [address] [address] [address] Ember Teague Anion gap [Moles/Vol] 12.8 mmol/L Normal [facility] Comment on above: Performed By: #### P THINT #### [facility] [address] [address] [address] Ember Teague AST [Catalytic activity/Vol] 17 U/L Normal 15-37 [facility] Comment on above: Performed By: #### P THINT #### [facility] [address] [address] [address] Ember Teague Bilirubin [Mass/Vol] 0.5 mg/dL Normal 0.2-1.0 [facility] Comment on above: Performed By: #### P THINT #### [facility] [address] [place] [address] Dr. Ember Teague Calcium [Mass/Vol] 9.4 mg/dL Normal 8.5-10.1 [facility] Comment on above: Performed By: #### P THINT #### [facility] [address] [place] [address] Dr. Ember Teague Chloride [Moles/Vol] 101 mmol/L Normal 98-107 [facility] Comment on above: Performed By: #### P THINT #### [facility] [address] [place] [address] Dr. Ember Teague CO2 [Moles/Vol] 24.3 mmol/L Normal 21.0-32.0 [facility] Comment on above: Performed By: #### P THINT #### [facility] [address] [place] [address] Dr. Ember Teague Creatinine [Mass/Vol] 2.84 mg/dL Critically high 0.55-1.02 [facility] Comment on above: Performed By: #### P THINT #### [facility] [address] [place] [address] Dr. Ember Teague EGFR-AF SAO TOMEAN 20 mL/min/1.73m2 Critically low >=60 [facility] Comment on above: Performed By: #### P THINT #### [facility] [address] [address] [address] Ember Teague EGFR-NON AF SAO TOMEAN 16 mL/min/1.73m2 Critically low >=60 [facility] Comment on above: Performed By: #### P THINT #### [facility] [address] [address] [address] Ember Teague Globulin (S) [Mass/Vol] 3.7 g/dL Normal [facility] Comment on above: Performed By: #### P THINT #### [facility] [address] [address] [address] Ember Teague Glucose [Mass/Vol] 174 mg/dL Critically high 74-106 [facility] Comment on above: Performed By: #### P THINT #### [facility] [address] [address] [address] Ember Teague Potassium [Moles/Vol] 5.1 mmol/L Normal 3.5-5.1 [facility] Comment on above: Performed By: #### P THINT #### [facility] [address] [place] [address] Dr. Ember Teague Protein [Mass/Vol] 7.4 g/dL Normal 6.4-8.2 [facility] Comment on above: Performed By: #### P THINT #### [facility] [address] [address] [address] Ember Teague Sodium [Moles/Vol] 133 mmol/L Critically low 136-145 [facility] Comment on above: Performed By: #### P THINT #### [facility] [address] [address] [address] Ember Teague Urea nitrogen [Mass/Vol] 68.0 mg/dL Critically high 7.0-18.0 [facility] Comment on above: Performed By: #### P THINT #### [facility] [address] [address] [address] Ember Teague Urea nitrogen/Creatinine [Mass ratio] 23.9 mg/mg Normal [facility] Comment on above: Performed By: #### P THINT #### [facility] [address] [place] [address] Dr. Ember Teague TROPONIN, HIGH SENSITIVITYon 09-11-2022 HSTROP 9.1 pg/mL Normal 4.0-51.3 [facility] Comment on above: Result Comment: CUT- OFF POINTS HAVE BEEN ESTABLISHED BASED ON THE FOURTH UNIVERSAL DEFINITIONS OF MYOCARDIAL INFARCTION. THE UPPER REFERENCE LIMIT (URL) OF TROPONIN, DEFINED THE 99TH PERCENTILE OF cTnI DISTRIBUTION IN A REFERENCE POPULATION, HAS BEEN CONFIRMED THE DECISION THRESHOLD FOR AL DIAGNOSIS. Performed By: #### P THINT #### [facility] [address] [place] [address] Dr. Ember Teague UA RANDOM W/MICROSCOPICon BACTERIA NONE SEEN Normal NONE SEEN [facility] Comment on above: Performed By: #### C VDTBH #### [facility] [address] [place] [address] Dr. Ember Teague Bilirubin Ql (U) Negative Normal NEGATIVE [facility] Comment on above: Performed By: #### C VDTBH #### [facility] [address] [place] [address] Dr. Ember Teague CAST NONE SEEN Normal NONE SEEN [facility] Comment on above: Performed By: #### C VDTBH #### [facility] [address] [place] [address] Dr. Ember Teague Clarity (U) CLEAR Normal CLEAR [facility] Comment on above: Performed By: #### C VDTBH #### [facility] [address] [place] [address] Dr. Ember Teague Color (U) LT. YELLOW Normal YELLOW [facility] Comment on above: Performed By: #### C VDTBH #### [facility] [address] [place] [address] Dr. Ember Teague Crystals LM Nom (Urine sed) NONE SEEN Normal NONE SEEN [facility] Comment on above: Performed By: #### C VDTBH #### [facility] [address] [place] [address] Dr. Ember Teague Epithelial cells LM Ql (Urine sed) FEW Abnormal NONE SEEN /RARE [facility] Comment on above: Performed By: #### C VDTBH #### [facility] [address] [place] [address] Dr. Ember Teague Glucose Ql (U) Negative Normal NEGATIVE [facility] Comment on above: Performed By: #### C VDTBH #### [facility] [address] [place] [address] Dr. Ember Teague Hemoglobin Ql (U) Negative Normal NEGATIVE [facility] Comment on above: Performed By: #### C VDTBH #### [facility] [address] [place] [address] Dr. Ember Teague Ketones Ql (U) Negative Normal NEGATIVE [facility] Comment on above: Performed By: #### C VDTBH #### [facility] [address] [place] [address] Dr. Ember Teague LEUKOCYTES Negative Normal NEGATIVE [facility] Comment on above: Performed By: #### C VDTBH #### [facility] [address] [place] [address] Dr. Ember Teague MUCOUS NONE SEEN Normal NONE SEEN [facility] Comment on above: Performed By: #### C VDTBH #### [facility] [address] [place] [address] Dr. Ember Teague Nitrite Ql (U) Negative Normal NEGATIVE [facility] Comment on above: Performed By: #### C VDTBH #### [facility] [address] [place] [address] Dr. Ember Teague pH (U) 5.5 [pH] Normal 5-9 [facility] Comment on above: Performed By: #### C VDTBH #### [facility] [address] [place] [address] Dr. Ember Teague RBC NONE SEEN Abnormal 0-2 [facility] Comment on above: Performed By: #### C VDTBH #### [facility] [address] [place] [address] Dr. Ember Teague SPEC GRAVITY 1.010 Normal 1.005-<=1.025 [facility] Comment on above: Performed By: #### C VDTBH #### [facility] [address] [place] [address] Dr. Ember Teague UA PROTEIN Negative Normal NEGATIVE/ TRACE [facility] Comment on above: Performed By: #### C VDTBH #### [facility] [address] [place] [address] Dr. Ember Teague Urobilinogen Qn (U) 0.2 {Esau'U}/dL Normal 0.2 - 1. 0 [facility] Comment on above: Performed By: #### C VDTBH #### [facility] [address] [place] [address] Dr. Ember Teague WBC NONE SEEN Normal NONE SEEN [facility] Comment on above: Performed By: #### C VDTBH #### [facility] [address] [place] [address] Dr. Ember Teague CBC AUTO DIFFon 08-13-2022 BASO # 0.0 103/ul Normal 0.0-0.1 [facility] Comment on above: Performed By: #### C BC #### [facility] [address] [place] [address] Dr. Ember Teague Basophils/100 WBC (Bld) 0.3 % Normal 0.2-2.0 [facility] Comment on above: Performed By: #### C BC #### [facility] [address] [place] [address] Dr. Ember Teague EO # 0.2 103/ul Normal 0.0-0.7 [facility] Comment on above: Performed By: #### C BC #### [facility] [address] [place] [address] Dr. Ember Teague Eosinophils/100 WBC (Bld) 3.7 % Normal 0.9-7.0 [facility] Comment on above: Performed By: #### C BC #### [facility] [address] [place] [address] Dr. Ember Teague Erythrocyte distribution width (RBC) [Ratio] 15.0 % Normal 11.0-15.0 [facility] Comment on above: Performed By: #### C BC #### [facility] [address] [place] [address] Dr. Ember Teague Hematocrit (Bld) [Volume fraction] 27.9 % Critically low 36.0-48.0 [facility] Comment on above: Performed By: #### C BC #### [facility] [address] [place] [address] Dr. Ember Teague Hemoglobin (Bld) [Mass/Vol] 9.7 g/dL Critically low 12.0-16.0 [facility] Comment on above: Performed By: #### C BC #### [facility] [address] [place] [address] Dr. Ember Teague IG # 0.01 10e3/ul Normal 0.00-0.03 [facility] Comment on above: Performed By: #### C BC #### [facility] [address] [place] [address] Dr. Ember Teague IG % 0.2 % Normal 0.0-0.5 [facility] Comment on above: Performed By: #### C BC #### [facility] [address] [place] [address] Dr. Ember Teague LYMPH # 1.9 103/ul Normal 1.2-3.8 [facility] Comment on above: Performed By: #### C BC #### [facility] [address] [place] [address] Dr. Ember Teague Lymphocytes/100 WBC (Bld) 32.2 % Normal 20.5-60.0 [facility] Comment on above: Performed By: #### C BC #### [facility] [address] [place] [address] Dr. Ember Teague MANUAL DIFF REQ NO Normal [facility] Comment on above: Performed By: #### C BC #### [facility] [address] [place] [address] Dr. Ember Teague MCH (RBC) [Entitic mass] 31.4 pg Normal 26.7-34.0 [facility] Comment on above: Performed By: #### C BC #### [facility] [address] [address] [address] Ember Teague MCHC (RBC) [Mass/Vol] 34.8 g/dL Normal 29.9-35.2 [facility] Comment on above: Performed By: #### C BC #### [facility] [address] [address] [address] Ember Teague MCV (RBC) [Entitic vol] 90.3 fL Normal 81.0-99.0 [facility] Comment on above: Performed By: #### C BC #### [facility] [address] [place] [address] Dr. Ember Teague MONO # 0.6 103/ul Normal 0.3-0.8 [facility] Comment on above: Performed By: #### C BC #### [facility] [address] [place] [address] Dr. Ember Teague Monocytes/100 WBC (Bld) 9.8 % Normal 1.7-12.0 [facility] Comment on above: Performed By: #### C BC #### [facility] [address] [place] [address] Dr. Ember Teague NEUT # 3.2 103/ul Normal 1.4-6.5 [facility] Comment on above: Performed By: #### C BC #### [facility] [address] [place] [address] Dr. Ember Teague Neutrophils/100 WBC (Bld) 53.8 % Normal 43.0-75.0 [facility] Comment on above: Performed By: #### C BC #### [facility] [address] [place] [address] Dr. Ember Teague Platelet mean volume (Bld) [Entitic vol] 10.0 fL Normal 9.5-13.5 [facility] Comment on above: Performed By: #### C BC #### [facility] [address] [address] [address] Ember Teague PLT 194 103/ul Normal 150-450 [facility] Comment on above: Performed By: #### C BC #### [facility] [address] [place] [address] Dr. Ember Teague RBC 3.09 106/ul Critically low 4.20-5.40 [facility] Comment on above: Performed By: #### C BC #### [facility] [address] [place] [address] Dr. Ember Teague WBC 6.0 103/ul Normal 4.0-11.0 [facility] Comment on above: Performed By: #### C BC #### [facility] [address] [place] [address] Dr. Ember Teague PTH INTACTon 06-26-2022 PTH, Intact 39 pg/mL Normal 15-65 [facility] Comment on above: Performed By: #### P THINT #### [facility] [address] [place] [address] Dr. Ember Teague CBC AUTO DIFFon 06-25-2022 BASO # 0.1 103/ul Normal 0.0-0.1 [facility] Comment on above: Performed By: #### C VDTBH #### [facility] [address] [place] [address] Dr. Ember Teague Basophils/100 WBC (Bld) 0.6 % Normal 0.2-2.0 [facility] Comment on above: Performed By: #### C VDTBH #### [facility] [address] [place] [address] Dr. Ember Teague EO # 0.2 103/ul Normal 0.0-0.7 [facility] Comment on above: Performed By: #### C VDTBH #### [facility] [address] [place] [address] Dr. Ember Teague Eosinophils/100 WBC (Bld) 3.0 % Normal 0.9-7.0 [facility] Comment on above: Performed By: #### C VDTBH #### [facility] [address] [place] [address] Dr. Ember Teague Erythrocyte distribution width (RBC) [Ratio] 14.2 % Normal 11.0-15.0 [facility] Comment on above: Performed By: #### C VDTBH #### [facility] [address] [place] [address] Dr. Ember Teague Hematocrit (Bld) [Volume fraction] 30.9 % Critically low 36.0-48.0 [facility] Comment on above: Performed By: #### C VDTBH #### [facility] [address] [place] [address] Dr. Ember Teague Hemoglobin (Bld) [Mass/Vol] 10.6 g/dL Critically low 12.0-16.0 [facility] Comment on above: Performed By: #### C VDTBH #### [facility] [address] [place] [address] Dr. Ember Teague IG # 0.04 10e3/ul Critically high 0.00-0.03 [facility] Comment on above: Performed By: #### C VDTBH #### [facility] [address] [place] [address] Dr. Ember Teague IG % 0.5 % Normal 0.0-0.5 [facility] Comment on above: Performed By: #### C VDTBH #### [facility] [address] [place] [address] Dr. Ember Teague LYMPH # 2.2 103/ul Normal 1.2-3.8 [facility] Comment on above: Performed By: #### C VDTBH #### [facility] [address] [place] [address] Dr. Ember Teague Lymphocytes/100 WBC (Bld) 27.0 % Normal 20.5-60.0 [facility] Comment on above: Performed By: #### C VDTBH #### [facility] [address] [place] [address] Dr. Ember Teague MANUAL DIFF REQ NO Normal [facility] Comment on above: Performed By: #### C VDTBH #### [facility] [address] [place] [address] Dr. Ember Teague MCH (RBC) [Entitic mass] 31.2 pg Normal 26.7-34.0 [facility] Comment on above: Performed By: #### C VDTBH #### [facility] [address] [place] [address] Dr. Ember Teague MCHC (RBC) [Mass/Vol] 34.3 g/dL Normal 29.9-35.2 [facility] Comment on above: Performed By: #### C VDTBH #### [facility] [address] [place] [address] Dr. Ember Teague MCV (RBC) [Entitic vol] 90.9 fL Normal 81.0-99.0 [facility] Comment on above: Performed By: #### C VDTBH #### [facility] [address] [place] [address] Dr. Ember Teague MONO # 0.7 103/ul Normal 0.3-0.8 [facility] Comment on above: Performed By: #### C VDTBH #### [facility] [address] [place] [address] Dr. Ember Teague Monocytes/100 WBC (Bld) 9.2 % Normal 1.7-12.0 [facility] Comment on above: Performed By: #### C VDTBH #### [facility] [address] [place] [address] Dr. Ember Teague NEUT # 4.8 103/ul Normal 1.4-6.5 [facility] Comment on above: Performed By: #### C VDTBH #### [facility] [address] [place] [address] Dr. Ember Teague Neutrophils/100 WBC (Bld) 59.7 % Normal 43.0-75.0 [facility] Comment on above: Performed By: #### C VDTBH #### [facility] [address] [place] [address] Dr. Ember Teague Platelet mean volume (Bld) [Entitic vol] 9.3 fL Critically low 9.5-13.5 [facility] Comment on above: Performed By: #### C VDTBH #### [facility] [address] [place] [address] Dr. Ember Teague PLT 227 103/ul Normal 150-450 [facility] Comment on above: Performed By: #### C VDTBH #### [facility] [address] [place], [place] [address] Dr. Ember Teague RBC 3.40 106/ul Critically low 4.20-5.40 [facility] Comment on above: Performed By: #### C VDTBH #### [facility] [address] [place], [place] [address] Dr. Ember Teague WBC 8.0 103/ul Normal 4.0-11.0 [facility] Comment on above: Performed By: #### C VDTBH #### [facility] [id number] Ember Teague MRI LSPINE WO CONon [...] YANET HUERTA Date: 2022-06-25 08:45 Normal [facility] RENAL FUNCTION PANELon 06-25 Albumin [Mass/Vol] 3.9 g/dL Normal 3.4-5.0 [facility] Comment on above: Performed By: #### P THINT #### [facility] [address] [address] [address] Ember Teague Calcium [Mass/Vol] 9.5 mg/dL Normal 8.5-10.1 [facility] Comment on above: Performed By: #### P THINT #### [facility] [address] [address] [address] Ember Teague Chloride [Moles/Vol] 102 mmol/L Normal 98-107 [facility] Comment on above: Performed By: #### P THINT #### [facility] [address] [address] [address] Ember Teague CO2 [Moles/Vol] 23.8 mmol/L Normal 21.0-32.0 [facility] Comment on above: Performed By: #### P THINT #### [facility] [address] [place] [address] Dr. Ember Teague Creatinine [Mass/Vol] 1.75 mg/dL Critically high 0.55-1.02 [facility] Comment on above: Performed By: #### P THINT #### [facility] [address] [address] [address] Ember Teague EGFR-AF SAO TOMEAN 34 mL/min/1.73m2 Critically low >=60 [facility] Comment on above: Performed By: #### P THINT #### [facility] [address] [address] [address] Ember Teague EGFR-NON AF SAO TOMEAN 28 mL/min/1.73m2 Critically low >=60 [facility] Comment on above: Performed By: #### P THINT #### [facility] [address] [address] [address] Ember Teague Glucose [Mass/Vol] 199 mg/dL Critically high 74-106 T [facility] Comment on above: Performed By: #### P THINT #### [facility] [address] [address] [address] Ember Teague Phosphate [Mass/Vol] 4.3 mg/dL Normal 2.6-4.7 [facility] Comment on above: Performed By: #### P THINT #### [facility] [address] [address] [address] Ember Teague Potassium [Moles/Vol] 4.9 mmol/L Normal 3.5-5.1 [facility] Comment on above: Performed By: #### P THINT #### [facility] [address] [place] [address] Dr. Ember Teague Sodium [Moles/Vol] 135 mmol/L Critically low 136-145 Th [facility] Comment on above: Performed By: #### P THINT #### [facility] [address] [address] [address] Ember Teague Urea nitrogen [Mass/Vol] 34.0 mg/dL Critically high 7.0-18.0 [facility] Comment on above: Performed By: #### P THINT #### [facility] [address] [place] [address] Dr. Ember Teague VITAMIN D 25 OHon 06-25-2022 VIT D 25-OH 40.6 ng/mL Normal [facility] Comment on above: Performed By: #### P THINT #### [facility] [address] [place] [address] Dr. Ember Teague VIT D RANGES SEE BELOW Normal [facility] Comment on above: Result Comment: <20 ng/mL Vit D deficient 20 - <30 ng/mL Vit D insufficient 30 - 100 ng/mL Vit D sufficient >100 ng/mL Potential Toxicity Performed By: #### P THINT #### [facility] [address] [place] [address] Dr. Ember Teague Covid-19 PCR (CVDTBH)on 06-07 SARS-CoV-2 (COVID-19) RNA ALEXX+probe Ql (Unsp spec) Not detected Normal NOT DETECTED [facility] Comment on above: Result Comment: This test is not yet approved or cleared by the [place] FDA. When there are no FDA-approved or cleared tests available, and other criteria are met, FDA can make tests available under an emergency access mechanism called an Emergency Use Authorization (EUA). The EUA for this test is supported by the [place] of Health and Human Service's (HHS's) declaration [...] with SARS-CoV-2. Performed By: #### C [facility] #### [facility] [address] [place] [address] LSPINE WO CONon [address] [facility] WO CON EXAMINATION: CT LSSOCIAL CIRCLE WO CON, 06/01/2022 7:48 AM EDT HISTORY: [...] YANET HUERTA Date: 2022-06-01 18:02 Normal [facility] XR LSPINE MIN 4 VIEWSon 05-07 XR [...] YANET HUERTA Date: 2022-05-21 15:25 Normal [facility] PTH INTACTon 05-03-2022 PTH, Intact 60 pg/mL Normal 15-65 [facility] Comment on above: Performed By: #### C [facility] #### [facility] [address] [place] [address] Dr. Ember Teague VIT D 25-OH LABCORPon 2021 Vitamin D, 25-Hydroxy 26.1 ng/mL Critically low 30.0-100.0 [facility] Comment on above: Result Comment: Sara min D deficiency has been defined by the [place] of [employer] and an Endocrine Society practice guideline as a level of serum 25-OH vitamin D less than 20 ng/mL (1,2). The Endocrine Society went on to further define vitamin D insufficiency as a level between 21 and 29 ng/mL (2). 1. IOM ([place] of [employer]). 2010. Dietary reference intakes for calcium and D. [place]: The National Academies Press. 2. Sherice MF, Wendy NC, Huan ZHONG, et al. Evaluation, treatment, and prevention of vitamin D deficiency: an Endocrine Society clinical practice guideline. JCEM. 2010; 96(7):1911-30. Performed By: #### R ENAL #### [facility] [address] [place] [address] Dr. Ember Teague FERRITINon 05-02-2022 Ferritin [Mass/Vol] 590.0 ng/mL Critically high 8.0-252.0 [facility] Comment on above: Performed By: #### R ENAL #### [facility] [address] [place] [address] Dr. Ember Teague HEMOGRAM AND PLATELon 2021 Hematocrit (Bld) [Volume fraction] 28.4 % Critically low 36.0-48.0 [facility] Comment on above: Performed By: #### C VDTBH #### [facility] [address] [place] [address] Dr. Ember Teague Hemoglobin (Bld) [Mass/Vol] 9.6 g/dL Critically low 12.0-16.0 [facility] Comment on above: Performed By: #### C VDTBH #### [facility] [address] [place] [address] Dr. Ember Teague MCH (RBC) [Entitic mass] 31.0 pg Normal 26.7-34.0 [facility] Comment on above: Performed By: #### C VDTBH #### [facility] [address] [place] [address] Dr. Ember Teague MCHC (RBC) [Mass/Vol] 33.8 g/dL Normal 29.9-35.2 [facility] Comment on above: Performed By: #### C VDTBH #### [facility] [address] [place] [address] Dr. Ember Teague MCV (RBC) [Entitic vol] 91.6 fL Normal 81.0-99.0 [facility] Comment on above: Performed By: #### C VDTBH #### [facility] [address] [address] [address] Ember Teague PLT 189 103/ul Normal 150-450 [facility] Comment on above: Performed By: #### C VDTBH #### [facility] [address] [address] [address] Ember Teague RBC 3.10 106/ul Critically low 4.20-5.40 [facility] Comment on above: Performed By: #### C VDTBH #### [facility] [address] [address] [address] Ember Teague WBC 6.2 103/ul Normal 4.0-11.0 [facility] Comment on above: Performed By: #### C VDTBH #### [facility] [address] [place] [address] Dr. Ember Teague IRON AND TIBCon 05-02-2022 % SATURATION 34.3 % Normal [facility] Comment on above: Performed By: #### R ENAL #### [facility] [address] [address] [address] Ember Teague Iron [Mass/Vol] 69.0 ug/dL Normal 50.0-170.0 [facility] Comment on above: Performed By: #### R ENAL #### [facility] [address] [place] [address] Dr. Ember Teague TIBC DIRECT 201.0 ug/dL Critically low 250.0-450.0 [facility] Comment on above: Performed By: #### R ENAL #### [facility] [address] [address] [address] Ember Teague MAGNESIUMon 05-02-2022 Magnesium [Mass/Vol] 1.7 mg/dL Critically low 1.8-2.4 [facility] Comment on above: Performed By: #### C VDTBH #### [facility] [address] [place] [address] Dr. Ember Teague RENAL FUNCTION PANELon 05-02 Albumin [Mass/Vol] 3.6 g/dL Normal 3.4-5.0 [facility] Comment on above: Performed By: #### C VDTBH #### [facility] [address] [place] [address] Dr. Ember Teague Calcium [Mass/Vol] 9.2 mg/dL Normal 8.5-10.1 [facility] Comment on above: Performed By: #### C VDTBH #### [facility] [address] [place] [address] Dr. Ember Teague Chloride [Moles/Vol] 107 mmol/L Normal 98-107 [facility] Comment on above: Performed By: #### C VDTBH #### [facility] [address] [place] [address] Dr. Ember Teague CO2 [Moles/Vol] 21.2 mmol/L Normal 21.0-32.0 [facility] Comment on above: Performed By: #### C VDTBH #### [facility] [address] [place] [address] Dr. Ember Teague Creatinine [Mass/Vol] 1.75 mg/dL Critically high 0.55-1.02 [facility] Comment on above: Performed By: #### C VDTBH #### [facility] [address] [place] [address] Dr. Ember Teague EGFR-AF SAO TOMEAN 34 mL/min/1.73m2 Critically low >=60 [facility] Comment on above: Performed By: #### C VDTBH #### [facility] [address] [place] [address] Dr. Ember Teague EGFR-NON AF SAO TOMEAN 28 mL/min/1.73m2 Critically low >=60 [facility] Comment on above: Performed By: #### C VDTBH #### [facility] [address] [place] [address] Dr. Ember Teague Glucose [Mass/Vol] 193 mg/dL Critically high 74-106 T [facility] Comment on above: Performed By: #### C VDTBH #### [facility] [address] [place] [address] Dr. Ember Teague Phosphate [Mass/Vol] 4.2 mg/dL Normal 2.6-4.7 [facility] Comment on above: Performed By: #### C VDTBH #### [facility] [address] [place] [address] Dr. Ember Teague Potassium [Moles/Vol] 5.1 mmol/L Normal 3.5-5.1 [facility] Comment on above: Performed By: #### C VDTBH #### [facility] [address] [place] [address] Dr. Ember Teague Sodium [Moles/Vol] 139 mmol/L Normal 136-145 [facility] Comment on above: Performed By: #### C VDTBH #### [facility] [address] [place] [address] Dr. Ember Teague Urea nitrogen [Mass/Vol] 34.0 mg/dL Critically high 7.0-18.0 [facility] Comment on above: Performed By: #### C VDTBH #### [facility] [address] [place] [address] Dr. Ember Teague UA RANDOM W/MICROSCOPICon BACTERIA SMALL Abnormal NONE SEEN [facility] Comment on above: Performed By: #### C VDTBH #### [facility] [address] [place] [address] Dr. Ember Teague Bilirubin Ql (U) Negative Normal NEGATIVE [facility] Comment on above: Performed By: #### C VDTBH #### [facility] [address] [place] [address] Dr. Ember Teague CAST NONE SEEN Normal NONE SEEN [facility] Comment on above: Performed By: #### C VDTBH #### [facility] [address] [place] [address] Dr. Ember Teague Clarity (U) CLEAR Normal CLEAR [facility] Comment on above: Performed By: #### C VDTBH #### [facility] [address] [place] [address] Dr. Ember Teague Color (U) LT. YELLOW Normal YELLOW [facility] Comment on above: Performed By: #### C VDTBH #### [facility] [address] [place] [address] Dr. Ember Teague Crystals LM Nom (Urine sed) NONE SEEN Normal NONE SEEN [facility] Comment on above: Performed By: #### C VDTBH #### [facility] [address] [place] [address] Dr. Ember Teague Epithelial cells LM Ql (Urine sed) MODERATE Abnormal NONE SEEN /RARE [facility] Comment on above: Performed By: #### C VDTBH #### [facility] [address] [place] [address] Dr. Ember Teague Glucose Ql (U) Negative Normal NEGATIVE [facility] Comment on above: Performed By: #### C VDTBH #### [facility] [address] [place] [address] Dr. Ember Teague Hemoglobin Ql (U) Negative Normal NEGATIVE [facility] Comment on above: Performed By: #### C VDTBH #### [facility] [address] [place] [address] Dr. Ember Teague Ketones Ql (U) Negative Normal NEGATIVE [facility] Comment on above: Performed By: #### C VDTBH #### [facility] [address] [place] [address] Dr. Ember Teague LEUKOCYTES TRACE Abnormal NEGATIVE [facility] Comment on above: Performed By: #### C VDTBH #### [facility] [address] [place] [address] Dr. Ember Teague MUCOUS NONE SEEN Normal NONE SEEN [facility] Comment on above: Performed By: #### C VDTBH #### [facility] [address] [place] [address] Dr. Ember Teague Nitrite Ql (U) Negative Normal NEGATIVE [facility] Comment on above: Performed By: #### C VDTBH #### [facility] [address] [place] [address] Dr. Ember Teague pH (U) 5.0 [pH] Normal 5-9 [facility] Comment on above: Performed By: #### C VDTBH #### [facility] [address] [place] [address] Dr. Ember Teague RBC NONE SEEN Abnormal 0-2 [facility] Comment on above: Performed By: #### C VDTBH #### [facility] [address] [place] [address] Dr. Ember Teague SPEC GRAVITY 1.015 Normal 1.005-<=1.025 [facility] Comment on above: Performed By: #### C VDTBH #### [facility] [address] [place] [address] Dr. Ember Teague UA PROTEIN TRACE Normal NEGATIVE/ TRACE [facility] Comment on above: Performed By: #### C VDTBH #### [facility] [address] [place] [address] Dr. Ember Teague Urobilinogen Qn (U) 0.2 {Esau'U}/dL Normal 0.2 - 1. 0 [facility] Comment on above: Performed By: #### C VDTBH #### [facility] [address] [place] [address] Dr. Ember Teague WBC 0-2 Abnormal NONE SEEN [facility] Comment on above: Performed By: #### C VDTBH #### [facility] [address] [place] [address] Dr. Ember Teague URIC ACID SERUMon 05-02-2022 Urate [Mass/Vol] 4.4 mg/dL Normal 2.6-6.0 [facility] Comment on above: Performed By: #### C #### [facility] [address] [place] [address] Dr. Ember Teague URINE T PROTEIN CREAT RATIOo n 05-02-2022 Protein (U) [Mass/Vol] 33.7 mg/dL Critically high <=12.0 [facility] Comment on above: Performed By: #### C VDTBH #### [facility] [address] [place] [address] Dr. Ebmer Teague UR PROT CREAT RAT 0.69 Normal [facility] Comment on above: Performed By: #### C VDTBH #### [facility] [address] [address] [address] Ember Teague URINE CREAT 48.93 mg/dL Normal 20.00-300.00 [facility] Comment on above: Performed By: #### C [facility] #### [facility] [address] [address] [address] Ember Teague Vital Signs Date Time Vital Sign Value Performing Clinician Facility 10-15-2023 13:00-0500 Body height 168.91 cm Ron Doreen Other [facility] Other 10-15-2023 13:00-0500 Body mass index (BMI) [Ratio] 29.82 kg/m2 Ron Doreen Other [facility] Other 10-15-2023 13:00-0500 Body temperature 97.5 [degF] Ron Doreen Other [facility] Other 10-15-2023 13:00-0500 Body weight 85.1 kg Ron Doreen Other [facility] Other 10-15-2023 13:00-0500 Diastolic blood pressure 68 mm[Hg] Ron Doreen Other [facility] Other 10-15-2023 13:00-0500 Respiratory rate 18 /min Ron Doreen Other [facility] Other 10-15-2023 13:00-0500 SaO2% (BldA) [Mass fraction] 98 % Ron Doreen Other [facility] Other 10-15-2023 13:00-0500 Systolic blood pressure 113 mm[Hg] Ron Doreen Other [facility] Other 08-27-2023 09:40-0500 Body height 168.91 cm Aziz Bakhous Other [facility] Other 08-27-2023 09:40-0500 Body mass index (BMI) [Ratio] 30.2 kg/m2 Aziz Bakhous Other [facility] Other 08-27-2023 09:40-0500 Body temperature 96.7 [degF] Aziz Bakhous Other [facility] Other 08-27-2023 09:40-0500 Body weight 86.18 kg Aziz Bakhous Other [facility] Other 08-27-2023 09:40-0500 Diastolic blood pressure 72 mm[Hg] Aziz Bakhous Other [facility] Other 08-27-2023 09:40-0500 Respiratory rate 18 /min Aziz Bakhous Other [facility] Other 08-27-2023 09:40-0500 SaO2% (BldA) [Mass fraction] 98 % Aziz Bakhous Other [facility] Other 08-27-2023 09:40-0500 Systolic blood pressure 153 mm[Hg] Aziz Bakhous Other [facility] Other 08-15-2023 10:20-0500 Body height 168.91 cm Ron Doreen Other [facility] Other 08-15-2023 10:20-0500 Body mass index (BMI) [Ratio] 30.2 kg/m2 Ron Doreen Other [facility] Other 08-15-2023 10:20-0500 Body temperature 97.1 [degF] Ron Doreen Other [facility] Other 08-15-2023 10:20-0500 Body weight 86.18 kg Ron Doreen Other [facility] Other 08-15-2023 10:20-0500 Diastolic blood pressure 79 mm[Hg] Ron Doreen Other [facility] Other 08-15-2023 10:20-0500 Respiratory rate 18 /min Ron Doreen Other [facility] Other 08-15-2023 10:20-0500 SaO2% (BldA) [Mass fraction] 98 % Ron Doreen Other [facility] Other 08-15-2023 10:20-0500 Systolic blood pressure 164 mm[Hg] Ron Doreen Other [facility] Other 08-13-2023 15:40-0500 Body height 168.91 cm Ron Doreen Other [facility] Other 08-13-2023 15:40-0500 Body mass index (BMI) [Ratio] 30.24 kg/m2 Ron Doreen Other [facility] Other 08-13-2023 15:40-0500 Body temperature 97.2 [degF] Ron Doreen Other [facility] Other 08-13-2023 15:40-0500 Body weight 86.27 kg Ron Doreen Other [facility] Other 08-13-2023 15:40-0500 Diastolic blood pressure 79 mm[Hg] Ron Doreen Other [facility] Other 08-13-2023 15:40-0500 Respiratory rate 18 /min Ron Doreen Other [facility] Other 08-13-2023 15:40-0500 SaO2% (BldA) [Mass fraction] 98 % Ron Doreen Other [facility] Other 08-13-2023 15:40-0500 Systolic blood pressure 186 mm[Hg] Ron Doreen Other [facility] Other 08-01-2023 13:00-0400 Body height 168.91 cm Ron Doreen Other [facility] Other 08-01-2023 13:00-0400 Body mass index (BMI) [Ratio] 30.55 kg/m2 Ron Doreen Other [facility] Other 08-01-2023 13:00-0400 Body temperature 97.8 [degF] Ron Doreen Other [facility] Other 08-01-2023 13:00-0400 Body weight 87.18 kg Ron Doreen Other [facility] Other 08-01-2023 13:00-0400 Diastolic blood pressure 72 mm[Hg] Ron Doreen Other [facility] Other 08-01-2023 13:00-0400 Respiratory rate 18 /min Ron Doreen Other [facility] Other 08-01-2023 13:00-0400 SaO2% (BldA) [Mass fraction] 98 % Ron Doreen Other [facility] Other 08-01-2023 13:00-0400 Systolic blood pressure 160 mm[Hg] Ron Doreen Other [facility] Other 06-24-2023 11:40-0400 Body height 168.91 cm Ron Doreen Other [facility] Other 06-24-2023 11:40-0400 Body mass index (BMI) [Ratio] 29.89 kg/m2 Ron Doreen Other [facility] Other 06-24-2023 11:40-0400 Body temperature 97.3 [degF] Ron Doreen Other [facility] Other 06-24-2023 11:40-0400 Body weight 85.28 kg Ron Doreen Other [facility] Other 06-24-2023 11:40-0400 Diastolic blood pressure 75 mm[Hg] Ron Doreen Other [facility] Other 06-24-2023 11:40-0400 Respiratory rate 18 /min Ron Doreen Other [facility] Other 06-24-2023 11:40-0400 SaO2% (BldA) [Mass fraction] 99 % Ron Doreen Other [facility] Other 06-24-2023 11:40-0400 Systolic blood pressure 129 mm[Hg] Ron Doreen Other [facility] Other 06-06-2023 15:20-0400 Body height 168.91 cm Ron Doreen Other [facility] Other 06-06-2023 15:20-0400 Body mass index (BMI) [Ratio] 29.92 kg/m2 Ron Doreen Other [facility] Other 06-06-2023 15:20-0400 Body temperature 96.5 [degF] Ron Doreen Other [facility] Other 06-06-2023 15:20-0400 Body weight 85.37 kg Ron Doreen Other [facility] Other 06-06-2023 15:20-0400 Diastolic blood pressure 49 mm[Hg] Ron Doreen Other [facility] Other 06-06-2023 15:20-0400 Respiratory rate 18 /min Ron Doreen Other [facility] Other 06-06-2023 15:20-0400 SaO2% (BldA) [Mass fraction] 99 % Ron Doreen Other [facility] Other 06-06-2023 15:20-0400 Systolic blood pressure 128 mm[Hg] Ron Doreen Other [facility] Other 04-30-2023 11:40-0400 Body height 168.91 cm Ron Doreen Other [facility] Other 04-30-2023 11:40-0400 Body mass index (BMI) [Ratio] 30.52 kg/m2 Ron Doreen Other [facility] Other 04-30-2023 11:40-0400 Body temperature 96.9 [degF] Ron Doreen Other [facility] Other 04-30-2023 11:40-0400 Body weight 87.09 kg Ron Doreen Other [facility] Other 04-30-2023 11:40-0400 Diastolic blood pressure 80 mm[Hg] Ron Doreen Other [facility] Other 04-30-2023 11:40-0400 Respiratory rate 18 /min Ron Doreen Other [facility] Other 04-30-2023 11:40-0400 SaO2% (BldA) [Mass fraction] 98 % Ron Doreen Other [facility] Other 04-30-2023 11:40-0400 Systolic blood pressure 150 mm[Hg] Ron Doreen Other [facility] Other 04-06-2023 09:00-0400 Body height 168.91 cm Ron Doreen Other [facility] Other 04-06-2023 09:00-0400 Body mass index (BMI) [Ratio] 30.36 kg/m2 Ron Doreen Other [facility] Other 04-06-2023 09:00-0400 Body weight 86.64 kg Ron Doreen Other [facility] Other 04-06-2023 09:00-0400 Diastolic blood pressure 54 mm[Hg] Ron Doreen Other [facility] Other 04-06-2023 09:00-0400 Respiratory rate 18 /min Ron Doreen Other [facility] Other 04-06-2023 09:00-0400 SaO2% (BldA) [Mass fraction] 98 % Ron Doreen Other [facility] Other 04-06-2023 09:00-0400 Systolic blood pressure 144 mm[Hg] Ron Doreen Other [facility] Other 04-02-2023 14:40-0400 Body height 168.91 cm Ron Doreen Other [facility] Other 04-02-2023 14:40-0400 Body mass index (BMI) [Ratio] 30.55 kg/m2 Ron Doreen Other [facility] Other 04-02-2023 14:40-0400 Body temperature 97 [degF] Ron Doreen Other [facility] Other 04-02-2023 14:40-0400 Body weight 87.18 kg Ron Doreen Other [facility] [facility] [employer] [facility] Other 04-02-2023 14:40-0400 Diastolic blood pressure 76 mm[Hg] Ron Doreen Other [facility] [facility] [employer] [facility] Other 04-02-2023 14:40-0400 Respiratory rate 18 /min Ron Doreen Other [facility] Other 04-02-2023 14:40-0400 SaO2% (BldA) [Mass fraction] 98 % Ron Doreen Other [facility] Other 04-02-2023 14:40-0400 Systolic blood pressure 183 mm[Hg] Ron Doreen Other [facility] Other 03-07-2023 09:20-0400 Body height 168.91 cm Ron Doreen Other [facility] Other 03-07-2023 09:20-0400 Body mass index (BMI) [Ratio] 30.52 kg/m2 Ron Doreen Other [facility] Other 03-07-2023 09:20-0400 Body temperature 97.1 [degF] Ron Doreen Other [facility] Other 03-07-2023 09:20-0400 Body weight 87.09 kg Ron Doreen Other [facility] Other 03-07-2023 09:20-0400 Diastolic blood pressure 72 mm[Hg] Ron Doreen Other [facility] Other 03-07-2023 09:20-0400 Respiratory rate 18 /min Ron Doreen Other [facility] Other 03-07-2023 09:20-0400 SaO2% (BldA) [Mass fraction] 97 % Ron Doreen Other [facility] Other 03-07-2023 09:20-0400 Systolic blood pressure 130 mm[Hg] Ron Doreen Other [facility] Other 12-20-2022 13:20-0400 Body height 168.91 cm Ron Doreen Other [facility] Other 12-20-2022 13:20-0400 Body mass index (BMI) [Ratio] 30.68 kg/m2 Ron Doreen Other [facility] Other 12-20-2022 13:20-0400 Body temperature 97.1 [degF] Ron Doreen Other [facility] Other 12-20-2022 13:20-0400 Body weight 87.54 kg Ron Doreen Other [facility] Other 12-20-2022 13:20-0400 Diastolic blood pressure 72 mm[Hg] Ron Doreen Other [facility] Other 12-20-2022 13:20-0400 Respiratory rate 18 /min Ron Doreen Other [facility] Other 12-20-2022 13:20-0400 SaO2% (BldA) [Mass fraction] 99 % Ron Doreen Other [facility] Other 12-20-2022 13:20-0400 Systolic blood pressure 139 mm[Hg] Ron Doreen Other [facility] Other 11-05-2022 14:00-0500 Body height 168.91 cm Ron Doreen Other [facility] Other 11-05-2022 14:00-0500 Body mass index (BMI) [Ratio] 30.59 kg/m2 Ron Doreen Other [facility] Other 11-05-2022 14:00-0500 Body temperature 96.8 [degF] Ron Doreen Other [facility] Other 11-05-2022 14:00-0500 Body weight 87.27 kg Ron Doreen Other [facility] Other 11-05-2022 14:00-0500 Diastolic blood pressure 72 mm[Hg] Ron Doreen Other [facility] Other 11-05-2022 14:00-0500 Respiratory rate 18 /min Ron Doreen Other [facility] Other 11-05-2022 14:00-0500 SaO2% (BldA) [Mass fraction] 98 % Ron Doreen Other [facility] Other 11-05-2022 14:00-0500 Systolic blood pressure 157 mm[Hg] Ron Doreen Other [facility] Other 09-27-2022 16:00-0500 Body height 168.91 cm Jana Monson Other [facility] Other 09-27-2022 16:00-0500 Body mass index (BMI) [Ratio] 30.55 kg/m2 Jana Monson Other [facility] Other 09-27-2022 16:00-0500 Body temperature 96.8 [degF] Jana Monson Other [facility] Other 09-27-2022 16:00-0500 Body weight 87.18 kg Jana Monson Other [facility] Other 09-27-2022 16:00-0500 Diastolic blood pressure 73 mm[Hg] Jana Monson Other [facility] Other 09-27-2022 16:00-0500 Respiratory rate 18 /min Jana Monson Other [facility] Other 09-27-2022 16:00-0500 SaO2% (BldA) [Mass fraction] 98 % Jana Monson Other [facility] Other 09-27-2022 16:00-0500 Systolic blood pressure 159 mm[Hg] Jana Monson Other [facility] Other 08-22-2022 12:00-0500 Body height 168.91 cm Ron Doreen Other [facility] Other 08-22-2022 12:00-0500 Body mass index (BMI) [Ratio] 30.65 kg/m2 Ron Doreen Other [facility] Other 08-22-2022 12:00-0500 Body temperature 96.9 [degF] Ron Doreen Other [facility] Other 08-22-2022 12:00-0500 Body weight 87.45 kg Ron Doreen Other [facility] Other 08-22-2022 12:00-0500 Diastolic blood pressure 75 mm[Hg] Ron Doreen Other [facility] Other 08-22-2022 12:00-0500 Respiratory rate 18 /min Ron Doreen Other [facility] Other 08-22-2022 12:00-0500 SaO2% (BldA) [Mass fraction] 96 % Ron Doreen Other [facility] Other 08-22-2022 12:00-0500 Systolic blood pressure 121 mm[Hg] Ron Doreen Other [facility] Other 05-08-2022 10:20-0400 Body height 168.91 cm Ron Doreen Other [facility] Other 05-08-2022 10:20-0400 Body mass index (BMI) [Ratio] 31.54 kg/m2 Ron Doreen Other [facility] Other 05-08-2022 10:20-0400 Body temperature 97.6 [degF] Ron Doreen Other [facility] Other 05-08-2022 10:20-0400 Body weight 89.99 kg Ron Doreen Other [facility] Other 05-08-2022 10:20-0400 Diastolic blood pressure 68 mm[Hg] Ron Doreen Other [facility] Other 05-08-2022 10:20-0400 Respiratory rate 18 /min Ron Doreen Other [facility] Other 05-08-2022 10:20-0400 SaO2% (BldA) [Mass fraction] 98 % Ron Doreen Other [facility] Other 05-08-2022 10:20-0400 Systolic blood pressure 131 mm[Hg] Ron Doreen Other [facility] Other 01-18-2022 10:20-0400 Body height 168.91 cm Ron Doreen Other [facility] Other 01-18-2022 10:20-0400 Body mass index (BMI) [Ratio] 31 kg/m2 Ron Doreen Other [facility] Other 01-18-2022 10:20-0400 Body temperature 96.4 [degF] Ron Doreen Other [facility] Other 01-18-2022 10:20-0400 Body weight 88.45 kg Ron Doreen Other [facility] Other 01-18-2022 10:20-0400 Diastolic blood pressure 74 mm[Hg] Ron Doreen Other [facility] Other 01-18-2022 10:20-0400 Respiratory rate 18 /min Ron Doreen Other [facility] Other 01-18-2022 10:20-0400 SaO2% (BldA) [Mass fraction] 97 % Ron Doreen Other [facility] Other 01-18-2022 10:20-0400 Systolic blood pressure 170 mm[Hg] Ron Doreen Other [facility] Other Encounters Encounter Date Encounter Type Care Provider Facility Start: 10-22-2023 End: 10-22-2023 ambulatory [facility] Not Available Start: 10-15-2023 End: 10-15-2023 ambulatory Ron Doreen Other [facility] Other Start: 10-15-2023 Office outpatient visit 15 minutes Ron Doreen [facility] Start: 10-08-2023 End: 10-08-2023 ambulatory Aziz Bakhous Other [facility] Other Start: 10-08-2023 Telephone encounter Aziz Bakhous [facility] Start: 09-15-2023 End: 09-15-2023 ambulatory Ron Doreen Other [facility] Other Start: 09-15-2023 Telephone encounter Ron Doreen [facility] Start: 09-09-2023 End: 09-09-2023 ambulatory Ron Doreen Other [facility] Other Start: 09-09-2023 Telephone encounter Ron Doreen [facility] Start: 08-27-2023 (INJECTION) INJECTION Aziz Bakhous [facility] Start: 08-27-2023 End: 08-27-2023 ambulatory Aziz Bakhous Other [facility] Other Start: 08-15-2023 (INJECTION) INJECTION Ron Doreen [facility] Start: 08-15-2023 End: 08-15-2023 ambulatory Ron Doreen Other [facility] Other Start: 08-13-2023 (INJECTION) INJECTION Ron Doreen [facility] Start: 08-13-2023 End: 08-13-2023 ambulatory Ron Doreen Other [facility] Other Start: 08-01-2023 End: 08-01-2023 ambulatory Ron Doreen Other [facility] Other Start: 08-01-2023 Office outpatient visit 15 minutes Ron Doreen [facility] Start: 06-24-2023 End: 06-24-2023 ambulatory Ron Doreen Other [facility] Other Start: 06-24-2023 Office outpatient visit 10 minutes Ron Doreen [facility] Start: 06-06-2023 End: 06-06-2023 ambulatory Ron Doreen Other [facility] Other Start: 06-06-2023 Office outpatient visit 15 minutes Ron Doreen [facility] Start: 04-30-2023 End: 04-30-2023 ambulatory Ron Doreen Other [facility] Other Start: 04-30-2023 Office outpatient visit 15 minutes Ron Doreen [facility] Start: 04-06-2023 (INJECTION) INJECTION Ron Doreen [facility] Start: 04-06-2023 End: 04-06-2023 ambulatory Ron Doreen Other [facility] Other Start: 04-06-2023 Telephone encounter Ron Doreen [facility] Start: 04-02-2023 End: 04-02-2023 ambulatory Ron Doreen Other [facility] Other Start: 04-02-2023 Office outpatient visit 15 minutes Ron Doreen [facility] Start: 04-02-2023 Telephone encounter Ron Doreen [facility] Start: 03-07-2023 End: 03-07-2023 ambulatory Ron Doreen Other [facility] Other Start: 03-07-2023 Office outpatient visit 15 minutes Ron Doreen [facility] Start: 01-22-2023 End: 01-23-2023 ambulatory RON DOREEN Facility:[facility] Start: 12-20-2022 End: 12-20-2022 ambulatory Ron Doreen Other [facility] Other Start: 12-20-2022 Office outpatient visit 15 minutes Ron Doreen [facility] Start: 12-17-2022 End: 12-18-[address] DHRUV GUTIERRES . Facility:[facility] Start: 12-10-2022 End: 12-11-2022 ambulatory RON DOREEN Facility:[facility] Start: 11-20-2022 End: 11-21-[address] BENI APARICIO Facility:[facility] Start: 11-05-2022 End: 11-05-2022 ambulatory Ron Doreen Other [facility] Other Start: 11-05-2022 Office outpatient visit 15 minutes Ron Doreen [facility] Start: 10-29-2022 End: 10-30-[address] JANA MONSON Facility:[facility] Start: 10-24-2022 End: 10-24-[address] LILLIAN ACOSTA . Facility:[facility] Start: 10-24-2022 End: 10-25-[address] DHRUV GUTIERRES . Facility:[facility] Start: 09-27-2022 End: 09-27-2022 ambulatory Jana Monson Other [facility] Other Start: 09-27-2022 Office outpatient visit 15 minutes Jana Monson [facility] Start: 09-18-2022 End: 09-19-2022 ambulatory RON DOREEN Facility:[facility] Start: 09-11-2022 End: 09-11-[address] DHRUV GUTIERRES . Facility:[facility] Start: 08-22-2022 End: 08-22-2022 ambulatory Ron Doreen Other [facility] Other Start: 08-22-2022 Office outpatient visit 15 minutes Ron Doreen [facility] Start: 08-13-2022 End: 08-14-2022 ambulatory RON DOREEN Facility:[facility] Start: 06-25-2022 End: 06-26-[address] DHRUV GUTIERRES . Facility:[facility] Start: 06-18-2022 End: 06-18-[address] DHRUV GUTIERRES . Facility:[facility] Start: 06-01-2022 End: 06-02-[address] YANET HUERTA Facility:[facility] Start: 05-28-2022 End: 05-28-2022 ambulatory Ron Doreen Other [facility] Other Start: 05-28-2022 Telephone encounter Ron Doreen [facility] Start: 05-21-2022 End: 05-22-[address] DHRUV GUTIERRES . Facility:[facility] Start: 05-16-2022 End: 05-16-2022 ambulatory Ron Doreen Other [facility] Other Start: 05-16-2022 Telephone encounter Ron Doreen [facility] Start: 05-10-2022 End: 05-10-2022 ambulatory Ron Doreen Other [facility] Other Start: 05-10-2022 Telephone encounter Ron Doreen [facility] Start: 05-08-2022 End: 05-08-2022 ambulatory Ron Doreen Other [facility] Other Start: 05-08-2022 Office outpatient visit 25 minutes Ron Doreen [facility] Start: 05-02-2022 End: 05-03-2022 ambulatory RON DOREEN Facility: Start: 04-24-2022 End: 04-24-2022 ambulatory Mary Anne Ackerman Other [facility] Other Start: 04-24-2022 Telephone encounter Mary Anne Ackerman [facility] Start: 01-18-2022 End: 01-18-2022 ambulatory Ron Doreen Other [facility] Other Start: 01-18-2022 Office outpatient visit 25 minutes Ron Doreen [facility] Start: 05-21-2017 End: 05-22-2017 Ambulatory DEFAULT PHYSICIAN Facility:[facility] Payers Date Payer Category Payer Medicare [id number] 1945 Unknown [id number] 2.16.84 [id number] 1945 Unknown [id number] 2.16.84 [id number] 1945 Unknown [id number] 2.16.84 0.1.551049.3.579.2.593 1945 Unknown [id number] 2.16.84 0.1.419695.3.579.2.593 1945 Unknown [id number] 2.16.84 0.1.732758.3.579.2.593 1945 Unknown [id number] 2.16.84 0.1.122055.3.579.2.593 1945 Unknown [id number] 2.16.84 0.1.901239.3.579.2.593 1945 Unknown [id number] 2.16.84 0.1.879993.3.579.2.593 1945 Unknown [id number] 2.16.84 0.1.921535.3.579.2.593 1945 Unknown [id number] 2.16.84 0.1.236425.3.579.2.593 1945 Unknown [id number] 2.16.84 0.1.016932.3.579.2.593 1945 Unknown [id number] 2.16.84 0.1.808929.3.579.2.593 1945 Unknown [id number] 2.16.84 0.1.458361.3.579.2.593 1945 Unknown [id number] 2.16.84 0.1.928864.3.579.2.593 1945 Unknown [id number] 2.16.84 0.1.372524.3.579.2.593 1945 Unknown [id number] 2.16.84 0.1.340954.3.579.2.593 1945 Unknown [id number] 2.16.84 0.1.084608.3.579.2.1259 Unknown Social History Date Type Detail Facility Unknown if ever smoked [facility] Other Sex Assigned At Sex Assigned At Bir th [facility] Other Clinical Notes 01-18-2022 to 10-15-2023 Note [...] potassium improved with dietary restriction and Lasix. [facility] Other 12-04-2023 Evaluation note* Encounter Date Diagnosis [...] 4, GFR 15-29 ml/min (ICD-10 - N18.4) [facility] Other 11-21-2023 Evaluation note* Encounter Date Diagnosis Assessment Notes Treatment Notes Treatment Clinical Notes Aug, Anemia of renal disease (ICD-10 - D63.1) Aug, CKD (chronic kidney disease) stage 4, GFR 15-29 ml/min (ICD-10 - N18.4) [facility] Other 11-09-2023 Evaluation note* Encounter Date Diagnosis [...] of kidney mass hydronephrosis or kidney stones. [facility] Other 10-26-2023 Evaluation note* Encounter Date Diagnosis [...] potassium improved with dietary restriction and Lasix. [facility] Other 09-18-2023 Evaluation note* Encounter Date Diagnosis [...] potassium improved with dietary restriction and Lasix. [facility] Other 08-31-2023 Evaluation note* Encounter Date Diagnosis [...] potassium improved with dietary restriction and Lasix. [facility] Other 07-25-2023 Evaluation note* Encounter Date Diagnosis [...] to normal with dietary restriction and Lasix. [facility] Other 07-01-2023 Evaluation note* Encounter Date Diagnosis Assessment Notes Treatment Notes Treatment Clinical Notes Apr, CKD (chronic kidney disease) stage 4, GFR 15-29 ml/min (ICD-10 - N18.4) Apr, Anemia of renal disease (ICD-10 - D63.1) [facility] Other 06-27-2023 Evaluation note* Encounter Date Diagnosis [...] to normal with dietary restriction and Lasix. [facility] Other 06-01-2023 Evaluation note* Encounter Date Diagnosis [...] potassium diet and provide information about it. [facility] Other 03-16-2023 Evaluation note* Encounter Date Diagnosis [...] to Continue Vit D 5000 units daily [facility] Other 01-30-2023 Evaluation note* Encounter Date Diagnosis [...] to Continue Vit D 5000 units daily [facility] Other 12-22-2022 Evaluation note* Encounter Date Diagnosis [...] to Continue Vit D 5000 units daily [facility] Other 11-16-2022 Evaluation note* Encounter Date Diagnosis [...] to Continue Vit D 5000 units daily [facility] Other 08-04-2022 Evaluation note* Encounter Date Diagnosis Assessment Notes Treatment Notes Treatment Clinical Notes May, Hypertensive chronic kidney disease with stage 1 through stage 4 chronic kidney disease, or unspecified chronic kidney disease (ICD-10 - I12.9) [facility] Other 08-02-2022 Evaluation note* Encounter Date Diagnosis [...] to Continue Vit D 5000 units daily [facility] Other 07-19-2022 Evaluation note* Encounter Date Diagnosis Assessment Notes Treatment Notes Treatment Clinical Notes Apr, Hypertensive chronic kidney disease with stage 1 through stage 4 chronic kidney disease, or unspecified chronic kidney disease (ICD-10 - I12.9) [facility] Other 04-14-2022 Evaluation note* Encounter Date Diagnosis [...] to take Vit D 1000 units daily [place] [employer] Other Evaluation noteNo InformationNort [employer] Other History general Narrative - Reported* Type [...] History SEE ABOVE Hospitalization History COVID 09/2020 [facility] Other History general Narrative - Reported* Type [...] History SEE ABOVE Hospitalization History COVID 09/2020 [facility] Other HisYoostay general Narrative - Reported* Type Description Date [...] History SEE ABOVE Hospitalization History COVID 09/2020 [facility] Other History general Narrative - ReportedNortFireID Other Summary Purpose Family History No Family History Records FoundNo Family History Records FoundNo Family History Records Found Advance Directives No Advanced Directives Records FoundNo Advanced Directives Records FoundNo Advanced Directives Records Found Additional Source Comments INFORMATION SOURCE (unrecogn ized section and content) DATE CREATED AUTHOR 04/02/2018 [facility] DATE CREATED AUTHOR AUTHOR'S ORGANIZ ATION 01/27/2023 [facility] DATE CREATED AUTHOR AUTHOR'S ORGANIZ ATION 10/23/2023 [facility] EPIC REASON FOR VISIT [...] BE BASED ON THE PRIMARY CLINICAL RECORDS. [employer] [facility]. provides no warranty or guarantee of the accuracy or completeness of information in this document.
--- NOTE | 2023-10-31 09:53 | CA_ITS ---
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 PVR waveforms with normal upstroke, amplitude and dicrotic notch Impression: - normal arterial evaluation of the left lower extremity without hemodynamic impairment of the left lower extremity at rest (left WALESKA 1.15) - significant arterial disease in the right lower extremity with mild hemodynamic impairment of the right lower extremity at rest. (right WALESKA 0.95) Electronically Signed On 10-31-2023 22:38:25 EST by VIRAL CHIRINOS
== END 2023-10-31 09:01 | disposition home or self-care (01) ==
LOC: CARD 09:50
PROVIDERS: PCP Family Medicine; Visit Provider Family Medicine
DX: R09.89 Other specified symptoms and signs involving the circulatory and respiratory systems (principal)
CPT/HCPCS: 93922

== ENCOUNTER 2023-11-12 06:36 | Outpatient (OUT) | payer MEDICARE, SELFPAY ==
--- OUTSIDE RECORDS SUMMARY | 2023-11-12 06:38 | XMS_ITS | CCD ---
Author Name Unknown Address [address] [place] [address] Organization [facility] Care Team Providers Care Steward/Stewardess Dining Room Name Role Phone PHYSICIAN, DEFAULT Unavailable Unavailable [...] Unavailable HOY ., DR BARTLETT Admitting Unavailable ANDERSDOOT, ANGELINA Consulting Unavailable ELASHI, DR SKINNER Consulting [...] RON Admitting Unavailable GA CRESPO Attending Unavailable GA CRESPO Attending Unavailable Allergies Allergy Classification Reported Allergen(s) Allergy Type Date of Onset Reaction(s) Facility (20 sources) amLODIPine Drug Allergy Unknown [facility] Other (19 sources) Amoxicillin / Clavulanate Drug Allergy Unknown [facility] Other (20 sources) Contrast media Propensity to adverse reactions Unknown [facility] Other (2 sources) Doxazosin; Translations: [doxazosin] Drug Allergy Unknown [facility] Other (20 sources) Sulfamethoxazole / Trimethoprim Drug Allergy Unknown [facility] Other (20 sources) Doxazosin Drug Allergy Unknown [facility] Other (9 sources) Amoxicillin / Clavulanate; Translations: [Augmentin] Drug Allergy 11-16-19 16 Unknown [facility] Repository (1 source) amLODIPine Drug Allergy 04-25-20 14 [facility] (1 source) Sulfamethoxazole / Trimethoprim Drug Allergy 03-09-20 13 [facility] Medications Current Medications Medication [...] Active docusate sodium 50 mg / sennosides, penitentiary 8.6 mg oral tablet (4 sources) take 1 tablet by mouth every twelve hours Sennosides-Docusate Sodium 8.6-50 MG 1 tablet in the evening as needed Orally every 12 hours Active epoetin johnna-epbx 09516 UNT/ML Injectable Solution [Retacrit] (14 sources) Retacrit 18018 U NIT/ML as directed Injection Active ferrous [...] day(s) Active furosemide 20 mg oral tablet (20 sources) Loop Diuretic take 1 tablet by [...] day Active Levemir FlexTouch 100 UNIT/M L (10 sources) Levemir FlexTouc h 100 UNIT/ML As Directed Subcutaneous 50 units twice a day Active levothyroxine sodium 0.125 mg oral tablet (20 sources) l-Thyroxine take 1 tablet by mouth once daily in the morning Synthroid 125 MCG 1 tablet on an empty stomach in the morning Orally Once a day Active take 1 tablet by enzo th once daily in the morning Synthroid 125 MCG 1 tablet on an empty stomach in the morning Orally Once a day Active liothyronine sodium 0.005 mg oral tablet (20 sources) l-Triiodothyronine take 2 tablets by mouth every twenty-four hours Liothyronine Sodium 5 MCG 2 tablets on an empty stomach Orally Once a day Active take [address] [facility] every twenty-four hours Liothyronine Sodium 5 MCG 2 tablets on a n empty stomach Orally Once a day Active take [address] [facility] every twenty-four hours lisinopril 10 mg oral [...] tablet Orally Once a day Active retacrit 61805 unit/ml solution (4 sources) Retacrit 72262 UNIT/ML as directed Injection Active Sennosides-Docusate Sodium [...] Sig (Original) RETACRIT INJECTION (20 sources) Start: 11-04-2023 RETACRIT INJECTION Oct, 1000 mL Start: 10-15-2023 RETACRIT INJEC TION Oct, 1000 mL Start: 08-27-2023 RETACRIT INJEC [...] kidney disease] Chronic Deficiency and other anemia (19 sources) Anemia in chronic kidney disease; Translations: [...] disease] Onset: 2 Resolved: 2 Chronic Other circulatory disease (1 source) Arterial, arteriole and capillary disease; 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 Ember Teague Hemoglobin (Bld) [Mass/Vol] 9.6 g/dL Critically low 12.0-16.0 [facility] Comment on above: Performed By: #### H H #### [facility] [address] [place] [address] Dr. Ember Teague MCH (RBC) [Entitic mass] 30.7 pg Normal 26.7-34.0 [facility] Comment on above: Performed By: #### H H #### [facility] [address] [place] [address] Dr. Ember Teague MCHC (RBC) [Mass/Vol] 33.3 g/dL Normal 29.9-35.2 [facility] Comment on above: Performed By: #### H H #### [facility] [address] [place] [address] Dr. Ember Teague MCV (RBC) [Entitic vol] 92.0 fL Normal 81.0-99.0 [facility] Comment on above: Performed By: #### H H #### [facility] [address] [place] [address] Dr. Ember Teague PLT 214 103/ul Normal 150-450 [facility] Comment on above: Performed By: #### H H #### [facility] [address] [place] [address] Dr. Ember Teague RBC 3.13 106/ul Critically low 4.20-5.40 [facility] Comment on above: Performed By: #### H H #### [facility] [address] [place] [address] Dr. Ember Teague WBC 7.4 103/ul Normal 4.0-11.0 [facility] Comment on above: Performed By: #### H H #### [facility] [address] [place] [address] Dr. Ember Teague MAGNESIUMon 01-22-2023 Magnesium [Mass/Vol] 1.8 mg/dL Normal 1.8-2.4 [facility] Comment on above: Performed By: #### M G, RENAL #### [facility] [address] [address] [address] Ember Teague RENAL FUNCTION PANELon 01-22 Albumin [Mass/Vol] 3.6 g/dL Normal 3.4-5.0 [facility] Comment on above: Performed By: #### M G, RENAL #### [facility] [address] [address] [address] Ember Teague Calcium [Mass/Vol] 9.7 mg/dL Normal 8.5-10.1 [facility] Comment on above: Performed By: #### M G, RENAL #### [facility] [address] [place] [address] Dr. Ember Teague Chloride [Moles/Vol] 105 mmol/L Normal 98-107 [facility] Comment on above: Performed By: #### M G, RENAL #### [facility] [address] [place] [address] Dr. Ember Teague CO2 [Moles/Vol] 22.6 mmol/L Normal 21.0-32.0 [facility] Comment on above: Performed By: #### M G, RENAL #### [facility] [address] [place] [address] Dr. Ember Teague Creatinine [Mass/Vol] 2.18 mg/dL Critically high 0.55-1.02 [facility] Comment on above: Performed By: #### M G, RENAL #### [facility] [address] [place] [address] Dr. Ember Teague EGFR-AF ECUADOREAN 26 mL/min/1.73m2 Critically low >=60 [facility] Comment on above: Performed By: #### M G, RENAL #### [facility] [address] [place] [address] Dr. Ember Teague EGFR-NON AF ECUADOREAN 22 mL/min/1.73m2 Critically low >=60 [facility] Comment on above: Performed By: #### M G, RENAL #### [facility] [address] [address] [address] Ember Teague Glucose [Mass/Vol] 134 mg/dL Critically high 74-106 [facility] Comment on above: Performed By: #### M G, RENAL #### [facility] [address] [address] [address] Ember Teague Phosphate [Mass/Vol] 4.6 mg/dL Normal 2.6-4.7 [facility] Comment on above: Performed By: #### M G, RENAL #### [facility] [address] [address] [address] Ember Teague Potassium [Moles/Vol] 5.1 mmol/L Normal 3.5-5.1 [facility] Comment on above: Performed By: #### M G, RENAL #### [facility] [address] [address] [address] Ember Teague Sodium [Moles/Vol] 138 mmol/L Normal 136-145 [facility] Comment on above: Performed By: #### M G, RENAL #### [facility] [address] [address] [address] Ember Teague Urea nitrogen [Mass/Vol] 61.0 mg/dL Critically high 7.0-18.0 [facility] Comment on above: Performed By: #### M G, RENAL #### [facility] [address] [address] [address] Ember Teague MG MAMM SCREEN 3D MAY CADon 12-17-2022 MG MAMM SCREEN 3D MAY CAD Patient: KYLAH BERGER Exam Date: 12/17/2022 : 1945 Gender:F Ordering : DR DHRUV GUTIERRES . Admission #: [id number] Family : Order #: [id number] CLICK HERE TO VIEW EXAM RADIOLOGY REPORT [...] lung cancer at age 61. LOCATION: [facility] BREAST COMPOSITION: Scattered areas fibroglandular [...] MD on 12/17/2022 at 11:59 Normal [facility] FERRITINon 12-10-2022 Ferritin [Mass/Vol] 681.0 ng/mL Critically high 8.0-252.0 [facility] Comment on above: Performed By: #### P THINT #### [facility] [address] [place] [address] Dr. Ember Teague HEMOGRAM AND PLATELon 2022 Hematocrit (Bld) [Volume fraction] 27.1 % Critically low 36.0-48.0 [facility] Comment on above: Performed By: #### C VDTBH #### [facility] [address] [place] [address] Dr. Ember Teague Hemoglobin (Bld) [Mass/Vol] 9.7 g/dL Critically low 12.0-16.0 [facility] Comment on above: Performed By: #### C VDTBH #### [facility] [address] [place] [address] Dr. Ember Teague MCH (RBC) [Entitic mass] 31.4 pg Normal 26.7-34.0 [facility] Comment on above: Performed By: #### C VDTBH #### [facility] [address] [place] [address] Dr. Ember Teague MCHC (RBC) [Mass/Vol] 35.8 g/dL Critically high 29.9-35.2 [facility] Comment on above: Performed By: #### C VDTBH #### [facility] [address] [address] [address] Ember Teague MCV (RBC) [Entitic vol] 87.7 fL Normal 81.0-99.0 [facility] Comment on above: Performed By: #### C VDTBH #### [facility] [address] [address] [address] Ember Teague PLT 218 103/ul Normal 150-450 [facility] Comment on above: Performed By: #### C VDTBH #### [facility] [address] [address] [address] Ember Teague RBC 3.09 106/ul Critically low 4.20-5.40 [facility] Comment on above: Performed By: #### C VDTBH #### [facility] [address] [place] [address] Dr. Ember Teague WBC 6.6 103/ul Normal 4.0-11.0 [facility] Comment on above: Performed By: #### C VDTBH #### [facility] [address] [place] [address] Dr. Ember Teague IRON AND TIBCon 12-10-2022 % SATURATION 30.2 % Normal [facility] Comment on above: Performed By: #### P THINT #### [facility] [address] [place] [address] Dr. Ember Teague Iron [Mass/Vol] 84.0 ug/dL Normal 50.0-170.0 [facility] Comment on above: Performed By: #### P THINT #### [facility] [address] [place] [address] Dr. Ember Teague TIBC DIRECT 278.0 ug/dL Normal 250.0-450.0 [facility] Comment on above: Performed By: #### P THINT #### [facility] [address] [place] [address] Dr. Ember Teague XR FOOT MAY MIN [...] BENI APARICIO Date: 2022-11-20 14:03 Normal [facility] HEMOGRAM AND PLATELon 2022 Hematocrit (Bld) [Volume fraction] 27.7 % Critically low 36.0-48.0 [facility] Comment on above: Performed By: #### R ENAL #### [facility] [address] [place] [address] Dr. Ember Teague Hemoglobin (Bld) [Mass/Vol] 10.0 g/dL Critically low 12.0-16.0 [facility] Comment on above: Performed By: #### R ENAL #### [facility] [address] [place] [address] Dr. Ember Teague MCH (RBC) [Entitic mass] 31.6 pg Normal 26.7-34.0 [facility] Comment on above: Performed By: #### R ENAL #### [facility] [address] [place] [address] Dr. Ember Teague MCHC (RBC) [Mass/Vol] 36.1 g/dL Critically high 29.9-35.2 [facility] Comment on above: Performed By: #### R ENAL #### [facility] [address] [place] [address] Dr. Ember Teague MCV (RBC) [Entitic vol] 87.7 fL Normal 81.0-99.0 [facility] Comment on above: Performed By: #### R ENAL #### [facility] [address] [place] [address] Dr. Ember Teague PLT 182 103/ul Normal 150-450 [facility] Comment on above: Performed By: #### R ENAL #### [facility] [address] [place] [address] Dr. Ember Teague RBC 3.16 106/ul Critically low 4.20-5.40 [facility] Comment on above: Performed By: #### R ENAL #### [facility] [address] [place] [address] Dr. Ember Teague WBC 6.8 103/ul Normal 4.0-11.0 [facility] Comment on above: Performed By: #### R ENAL #### [facility] [address] [place] [address] Dr. Ember Teague PROF CHEM 8 (BAS METB)on Anion gap [Moles/Vol] 17.6 mmol/L Normal [facility] Comment on above: Performed By: #### C VDTBH #### [facility] [address] [place] [address] Dr. Ember Teague Calcium [Mass/Vol] 9.0 mg/dL Normal 8.5-10.1 [facility] Comment on above: Performed By: #### C VDTBH #### [facility] [address] [place] [address] Dr. Ember Teague Chloride [Moles/Vol] 104 mmol/L Normal 98-107 [facility] Comment on above: Performed By: #### C VDTBH #### [facility] [address] [place] [address] Dr. Ember Teague CO2 [Moles/Vol] 22.2 mmol/L Normal 21.0-32.0 [facility] Comment on above: Performed By: #### C VDTBH #### [facility] [address] [place] [address] Dr. Ember Teague Creatinine [Mass/Vol] 2.03 mg/dL Critically high 0.55-1.02 [facility] Comment on above: Performed By: #### C VDTBH #### [facility] [address] [place] [address] Dr. Ember Teague EGFR-AF ECUADOREAN 29 mL/min/1.73m2 Critically low >=60 [facility] Comment on above: Performed By: #### C VDTBH #### [facility] [address] [address] [address] Ember Teague EGFR-NON AF ECUADOREAN 24 mL/min/1.73m2 Critically low >=60 [facility] Comment on above: Performed By: #### C VDTBH #### [facility] [address] [address] [address] Ember Teague Glucose [Mass/Vol] 154 mg/dL Critically high 74-106 [facility] Comment on above: Performed By: #### C VDTBH #### [facility] [address] [place] [address] Dr. Ember Teague Potassium [Moles/Vol] 4.8 mmol/L Normal 3.5-5.1 [facility] Comment on above: Performed By: #### C VDTBH #### [facility] [address] [place] [address] Dr. Ember Teague Sodium [Moles/Vol] 139 mmol/L Normal 136-145 [facility] Comment on above: Performed By: #### C VDTBH #### [facility] [address] [place] [address] Dr. Ember Teague Urea nitrogen [Mass/Vol] 43.0 mg/dL Critically high 7.0-18.0 [facility] Comment on above: Performed By: #### C VDTBH #### [facility] [address] [place] [address] Dr. Ember Teague Urea nitrogen/Creatinine [Mass ratio] 21.2 mg/mg Normal [facility] Comment on above: Performed By: #### C VDTBH #### [facility] [address] [place] [address] Dr. Ember Teague CULTURE SPUTUMon 10-24-2022 CULTURE SPUTUM Culture Observations : Beta lactamase positive Isolate 1 Haemophilus influenzae Moderate growth of Normal [facility] Comment on above: Performed By: #### R ENAL #### [facility] [address] [address] [address] Ember Teague SPUTUM GRAM STAINon 10-24-19 COMMENTS Normal [facility] Comment on above: Performed By: #### R ENAL #### [facility] [address] [address] [address] Ember Teague DIPHTHEROIDS Normal [facility] Comment on above: Performed By: #### R ENAL #### [facility] [address] [address] [address] Ember Teague EPITHELIALS >25 Normal [facility] Comment on above: Performed By: #### R ENAL #### [facility] [address] [address] [address] Ember Teague FUNGAL ELEMENTS Normal [facility] Comment on above: Performed By: #### R ENAL #### [facility] [address] [address] [address] Ember Teague GRAM NEG BACILLI [facility] Comment on above: Performed By: #### R ENAL #### [facility] [address] [address] [address] Ember Teague GRAM NEG DIPPLOCOCCI FEW [facility] Comment on above: Performed By: #### R ENAL #### [facility] [address] [address] [address] Ember Teague GRAM POS BACILLI FEW [facility] Comment on above: Performed By: #### R ENAL #### [facility] [address] [address] [address] Ember Teague GRAM POSITIVE COCCI MANY Normal [facility] Comment on above: Performed By: #### R ENAL #### [facility] [address] [address] [address] Ember Teague WBC (Bld) [#/Vol] 10*3/uL Normal [facility] Comment on above: Performed By: #### R ENAL #### [facility] [address] [address] [address] Ember Teague XR CHEST 2 Von [...] ANGELINA BRISENO Date: 2022-10-24 16:22 Normal [facility] FERRITINon 09-18-2022 Ferritin [Mass/Vol] 612.0 ng/mL Critically high 8.0-252.0 [facility] Comment on above: Performed By: #### F ERR, FETIBC #### [facility] [address] [place] [address] Dr. Ember Teague HEMOGRAM AND PLATELon 2021 Hematocrit (Bld) [Volume fraction] 28.1 % Critically low 36.0-48.0 [facility] Comment on above: Performed By: #### C BC #### [facility] [address] [place] [address] Dr. Ember Teague Hemoglobin (Bld) [Mass/Vol] 9.7 g/dL Critically low 12.0-16.0 [facility] Comment on above: Performed By: #### C BC #### [facility] [address] [place] [address] Dr. Ember Teague MCH (RBC) [Entitic mass] 31.3 pg Normal 26.7-34.0 [facility] Comment on above: Performed By: #### C BC #### [facility] [address] [place] [address] Dr. Ember Teague MCHC (RBC) [Mass/Vol] 34.5 g/dL Normal 29.9-35.2 [facility] Comment on above: Performed By: #### C BC #### [facility] [address] [place] [address] Dr. Ember Teague MCV (RBC) [Entitic vol] 90.6 fL Normal 81.0-99.0 [facility] Comment on above: Performed By: #### C BC #### [facility] [address] [address] [address] Ember Teague PLT 183 103/ul Normal 150-450 [facility] Comment on above: Performed By: #### C BC #### [facility] [address] [address] [address] Ember Teague RBC 3.10 106/ul Critically low 4.20-5.40 [facility] Comment on above: Performed By: #### C BC #### [facility] [address] [address] [address] Ember Teague WBC 7.2 103/ul Normal 4.0-11.0 [facility] Comment on above: Performed By: #### C BC #### [facility] [address] [place] [address] Dr. Ember Teague IRON AND TIBCon 09-18-2022 % SATURATION 36.0 % Normal [facility] Comment on above: Performed By: #### F ERR, FETIBC #### [facility] [address] [place] [address] Dr. Ember Teague Iron [Mass/Vol] 77.0 ug/dL Normal 50.0-170.0 [facility] Comment on above: Performed By: #### F ERR, FETIBC #### [facility] [address] [place] [address] Dr. Ember Teague TIBC DIRECT 214.0 ug/dL Critically low 250.0-450.0 [facility] Comment on above: Performed By: #### F ERR, FETIBC #### [facility] [address] [place] [address] Dr. Ember Teague RENAL FUNCTION PANELon 09-18 Albumin [Mass/Vol] 3.7 g/dL Normal 3.4-5.0 [facility] Comment on above: Performed By: #### R ENAL #### [facility] [address] [place] [address] Dr. Ember Teague Calcium [Mass/Vol] 9.5 mg/dL Normal 8.5-10.1 [facility] Comment on above: Performed By: #### R ENAL #### [facility] [address] [address] [address] Ember Teague Chloride [Moles/Vol] 103 mmol/L Normal 98-107 [facility] Comment on above: Performed By: #### R ENAL #### [facility] [address] [address] [address] Ember Teague CO2 [Moles/Vol] 21.1 mmol/L Normal 21.0-32.0 [facility] Comment on above: Performed By: #### R ENAL #### [facility] [address] [address] [address] Ember Teague Creatinine [Mass/Vol] 1.85 mg/dL Critically high 0.55-1.02 [facility] Comment on above: Performed By: #### R ENAL #### [facility] [address] [address] [address] Ember Teague EGFR-AF ECUADOREAN 32 mL/min/1.73m2 Critically low >=60 [facility] Comment on above: Performed By: #### R ENAL #### [facility] [address] [address] [address] Ember Teague EGFR-NON AF ECUADOREAN 26 mL/min/1.73m2 Critically low >=60 [facility] Comment on above: Performed By: #### R ENAL #### [facility] [address] [address] [address] Ember Teague Glucose [Mass/Vol] 183 mg/dL Critically high 74-106 [facility] [facility] Comment on above: Performed By: #### R ENAL #### [facility] [address] [address] [address] Ember Teague Phosphate [Mass/Vol] 3.7 mg/dL Normal 2.6-4.7 [facility] Comment on above: Performed By: #### R ENAL #### [facility] [address] [address] [address] Ember Teague Potassium [Moles/Vol] 4.9 mmol/L Normal 3.5-5.1 [facility] Comment on above: Performed By: #### R ENAL #### [facility] [address] [place] [address] Dr. Ember Teague Sodium [Moles/Vol] 138 mmol/L Normal 136-145 [facility] Comment on above: Performed By: #### R ENAL #### [facility] [address] [place] [address] Dr. Ember Teague Urea nitrogen [Mass/Vol] 40.0 mg/dL Critically high 7.0-18.0 [facility] Comment on above: Performed By: #### R ENAL #### [facility] [address] [place] [address] Dr. Ember Teague CULTURE URINEon 09-15-2022 CULTURE [...] F Trimethoprim/Sulfamet hoxazole <=20 S F Normal [facility] Comment on above: Performed By: #### R ENAL #### [facility] [address] [place] [address] Dr. Ember Teague BNPon 09-11-2022 Natriuretic peptide B (Bld) [Mass/Vol] 408.0 pg/mL Normal <=1,800.0 [facility] Comment on above: Performed By: #### P THINT #### [facility] [address] [place] [address] Dr. Ember Teague CBC AUTO DIFFon 09-11-2022 BASO # 0.0 103/ul Normal 0.0-0.1 [facility] Comment on above: Performed By: #### C BC #### [facility] [address] [place] [address] Dr. Ember Teague Basophils/100 WBC (Bld) 0.3 % Normal 0.2-2.0 [facility] Comment on above: Performed By: #### C BC #### [facility] [address] [place] [address] Dr. Ember Teague EO # 0.1 103/ul Normal 0.0-0.7 [facility] Comment on above: Performed By: #### C BC #### [facility] [address] [place] [address] Dr. Ember Teague Eosinophils/100 WBC (Bld) 1.9 % Normal 0.9-7.0 [facility] Comment on above: Performed By: #### C BC #### [facility] [address] [place] [address] Dr. Ember Teague Erythrocyte distribution width (RBC) [Ratio] 15.2 % Critically high 11.0-15.0 [facility] Comment on above: Performed By: #### C BC #### [facility] [address] [place] [address] Dr. Ember Teague Hematocrit (Bld) [Volume fraction] 26.6 % Critically low 36.0-48.0 [facility] Comment on above: Performed By: #### C BC #### [facility] [address] [place] [address] Dr. Ember Teague Hemoglobin (Bld) [Mass/Vol] 9.0 g/dL Critically low 12.0-16.0 [facility] Comment on above: Performed By: #### C BC #### [facility] [address] [place] [address] Dr. Ember Teague IG # 0.02 10e3/ul Normal 0.00-0.03 [facility] Comment on above: Performed By: #### C BC #### [facility] [address] [place] [address] Dr. Ember Teague IG % 0.3 % Normal 0.0-0.5 [facility] Comment on above: Performed By: #### C BC #### [facility] [address] [place] [address] Dr. Ember Teague LYMPH # 1.9 103/ul Normal 1.2-3.8 [facility] Comment on above: Performed By: #### C BC #### [facility] [address] [place] [address] Dr. Ember Teague Lymphocytes/100 WBC (Bld) 32.4 % Normal 20.5-60.0 [facility] Comment on above: Performed By: #### C BC #### [facility] [address] [place] [address] Dr. Ember Teague MANUAL DIFF REQ NO Normal [facility] Comment on above: Performed By: #### C BC #### [facility] [address] [place] [address] Dr. Ember Teague MCH (RBC) [Entitic mass] 31.1 pg Normal 26.7-34.0 [facility] Comment on above: Performed By: #### C BC #### [facility] [address] [place] [address] Dr. Ember Teague MCHC (RBC) [Mass/Vol] 33.8 g/dL Normal 29.9-35.2 [facility] Comment on above: Performed By: #### C BC #### [facility] [address] [place] [address] Dr. Ember Teague MCV (RBC) [Entitic vol] 92.0 fL Normal 81.0-99.0 [facility] Comment on above: Performed By: #### C BC #### [facility] [address] [place] [address] Dr. Ember Teague MONO # 0.6 103/ul Normal 0.3-0.8 [facility] Comment on above: Performed By: #### C BC #### [facility] [address] [place] [address] Dr. Ember Teague Monocytes/100 WBC (Bld) 10.0 % Normal 1.7-12.0 [facility] Comment on above: Performed By: #### C BC #### [facility] [address] [place] [address] Dr. Ember Teague NEUT # 3.2 103/ul Normal 1.4-6.5 [facility] Comment on above: Performed By: #### C BC #### [facility] [address] [place] [address] Dr. Ember Teague Neutrophils/100 WBC (Bld) 55.1 % Normal 43.0-75.0 [facility] Comment on above: Performed By: #### C BC #### [facility] [address] [place] [address] Dr. Ember Teague Platelet mean volume (Bld) [Entitic vol] 9.4 fL Critically low 9.5-13.5 [facility] Comment on above: Performed By: #### C BC #### [facility] [address] [place] [address] Dr. Ember Teague PLT 196 103/ul Normal 150-450 [facility] Comment on above: Performed By: #### C BC #### [facility] [address] [place] [address] Dr. Ember Teague RBC 2.89 106/ul Critically low 4.20-5.40 [facility] Comment on above: Performed By: #### C BC #### [facility] [address] [place] [address] Dr. Ember Teague WBC 5.8 103/ul Normal 4.0-11.0 [facility] Comment on above: Performed By: #### C BC #### [facility] [address] [place] [address] Dr. Ember Teague PROF 14(COMP METB)on 022 Albumin [Mass/Vol] 3.7 g/dL Normal 3.4-5.0 [facility] Comment on above: Performed By: #### P THINT #### [facility] [address] [place] [address] Dr. Ember Teague Albumin/Globulin [Mass ratio] 1.0 {ratio} Normal [facility] Comment on above: Performed By: #### P THINT #### [facility] [address] [place] [address] Dr. Ember Teague ALP [Catalytic activity/Vol] 79 U/L Normal 46-116 [facility] Comment on above: Performed By: #### P THINT #### [facility] [address] [address] [address] Ember Teague ALT [Catalytic activity/Vol] 24 U/L Normal 14-59 [facility] Comment on above: Performed By: #### P THINT #### [facility] [address] [address] [address] Ember Teague Anion gap [Moles/Vol] 12.8 mmol/L Normal [facility] Comment on above: Performed By: #### P THINT #### [facility] [address] [address] [address] Ember Teague AST [Catalytic activity/Vol] 17 U/L Normal 15-37 [facility] Comment on above: Performed By: #### P THINT #### [facility] [address] [place] [address] Dr. Ember Teague Bilirubin [Mass/Vol] 0.5 mg/dL Normal 0.2-1.0 [facility] Comment on above: Performed By: #### P THINT #### [facility] [address] [place] [address] Dr. Ember Teague Calcium [Mass/Vol] 9.4 mg/dL Normal 8.5-10.1 [facility] Comment on above: Performed By: #### P THINT #### [facility] [address] [place] [address] Dr. Ember Teague Chloride [Moles/Vol] 101 mmol/L Normal 98-107 [facility] Comment on above: Performed By: #### P THINT #### [facility] [address] [address] [address] Ember Teague CO2 [Moles/Vol] 24.3 mmol/L Normal 21.0-32.0 [facility] Comment on above: Performed By: #### P THINT #### [facility] [address] [address] [address] Ember Teague Creatinine [Mass/Vol] 2.84 mg/dL Critically high 0.55-1.02 [facility] Comment on above: Performed By: #### P THINT #### [facility] [address] [address] [address] Ember Teague EGFR-AF ECUADOREAN 20 mL/min/1.73m2 Critically low >=60 [facility] Comment on above: Performed By: #### P THINT #### [facility] [address] [address] [address] Ember Teague EGFR-NON AF ECUADOREAN 16 mL/min/1.73m2 Critically low >=60 [facility] Comment on above: Performed By: #### P THINT #### [facility] [address] [place] [address] Dr. Ember Teague Globulin (S) [Mass/Vol] 3.7 g/dL Normal [facility] Comment on above: Performed By: #### P THINT #### [facility] [address] [address] [address] Ember Teague Glucose [Mass/Vol] 174 mg/dL Critically high 74-106 [facility] Comment on above: Performed By: #### P THINT #### [facility] [address] [place] [address] Dr. Ember Teague Potassium [Moles/Vol] 5.1 mmol/L Normal 3.5-5.1 [facility] Comment on above: Performed By: #### P THINT #### [facility] [address] [address] [address] Ember Teague Protein [Mass/Vol] 7.4 g/dL Normal 6.4-8.2 [facility] Comment on above: Performed By: #### P THINT #### [facility] [address] [address] [address] Ember Teague Sodium [Moles/Vol] 133 mmol/L Critically low 136-[address] [facility] Comment on above: Performed By: #### P THINT #### [facility] [address] [address] [address] Ember Teague Urea nitrogen [Mass/Vol] 68.0 mg/dL Critically high 7.0-18.0 [facility] Comment on above: Performed By: #### P THINT #### [facility] [address] [place] [address] Dr. Ember Teague Urea nitrogen/Creatinine [Mass ratio] 23.9 mg/mg Normal [facility] Comment on above: Performed By: #### P THINT #### [facility] [address] [place] [address] Dr. Ember Teague TROPONIN, HIGH SENSITIVITYon 09-11-2022 HSTROP 9.1 pg/mL Normal 4.0-51.3 [facility] Comment on above: Result Comment: CUT- OFF POINTS HAVE BEEN ESTABLISHED BASED ON THE FOURTH UNIVERSAL DEFINITIONS OF MYOCARDIAL INFARCTION. THE UPPER REFERENCE LIMIT (URL) OF TROPONIN, DEFINED THE 99TH PERCENTILE OF cTnI DISTRIBUTION IN A REFERENCE POPULATION, HAS BEEN CONFIRMED THE DECISION THRESHOLD FOR MA DIAGNOSIS. Performed By: #### P THINT #### [facility] [address] [place] [address] Dr. Ember Teague UA RANDOM W/MICROSCOPICon BACTERIA NONE SEEN Normal NONE SEEN [facility] Comment on above: Performed By: #### C VDTBH #### [facility] [address] [place] [address] Dr. Ember Teague Bilirubin Ql (U) Negative Normal NEGATIVE [facility] Comment on above: Performed By: #### C VDTBH #### [facility] [address] [place] [address] Dr. Ember Teague CAST NONE SEEN Normal NONE SEEN [facility] Comment on above: Performed By: #### C VDTBH #### [facility] [address] [place] [address] Dr. Ember Teague Clarity (U) CLEAR Normal CLEAR [facility] Comment on above: Performed By: #### C VDTBH #### [facility] [address] [place] [address] Dr. Ember Teague Color (U) LT. YELLOW Normal YELLOW [facility] Comment on above: Performed By: #### C VDTBH #### [facility] [address] [place] [address] Dr. Ember Teague Crystals LM Nom (Urine sed) NONE SEEN Normal NONE SEEN [facility] Comment on above: Performed By: #### C VDTBH #### [facility] [address] [place] [address] Dr. Ember Teague Epithelial cells LM Ql (Urine sed) FEW Abnormal NONE SEEN /RARE [facility] Comment on above: Performed By: #### C VDTBH #### [facility] [address] [place] [address] Dr. Ember Teague Glucose Ql (U) Negative Normal NEGATIVE [facility] Comment on above: Performed By: #### C VDTBH #### [facility] [address] [place] [address] Dr. Ember Teague Hemoglobin Ql (U) Negative Normal NEGATIVE [facility] Comment on above: Performed By: #### C VDTBH #### [facility] [address] [place] [address] Dr. Ember Teague Ketones Ql (U) Negative Normal NEGATIVE [facility] Comment on above: Performed By: #### C VDTBH #### [facility] [address] [place] [address] Dr. Ember Teague LEUKOCYTES Negative Normal NEGATIVE [facility] Comment on above: Performed By: #### C VDTBH #### [facility] [address] [place] [address] Dr. Ember Teague MUCOUS NONE SEEN Normal NONE SEEN [facility] Comment on above: Performed By: #### C VDTBH #### [facility] [address] [place] [address] Dr. Ember Teague Nitrite Ql (U) Negative Normal NEGATIVE [facility] Comment on above: Performed By: #### C VDTBH #### [facility] [address] [place] [address] Dr. Ember Teague pH (U) 5.5 [pH] Normal 5-9 [facility] Comment on above: Performed By: #### C VDTBH #### [facility] [address] [place] [address] Dr. Ember Teague RBC NONE SEEN Abnormal 0-2 [facility] Comment on above: Performed By: #### C VDTBH #### [facility] [address] [place] [address] Dr. Ember Teague SPEC GRAVITY 1.010 Normal 1.005-<=1.025 [facility] Comment on above: Performed By: #### C VDTBH #### [facility] [address] [place] [address] Dr. Ember Teague UA PROTEIN Negative Normal NEGATIVE/ TRACE [facility] Comment on above: Performed By: #### C VDTBH #### [facility] [address] [place] [address] Dr. Ember Teague Urobilinogen Qn (U) 0.2 {Esau'U}/dL Normal 0.2 - 1. 0 [facility] Comment on above: Performed By: #### C VDTBH #### [facility] [address] [place] [address] Dr. Ember Teague WBC NONE SEEN Normal NONE SEEN [facility] Comment on above: Performed By: #### C VDTBH #### [facility] [address] [place] [address] Dr. Ember Teague CBC AUTO DIFFon 08-13-2022 BASO # 0.0 103/ul Normal 0.0-0.1 [facility] Comment on above: Performed By: #### C BC #### [facility] [address] [place] [address] Dr. Ember Teague Basophils/100 WBC (Bld) 0.3 % Normal 0.2-2.0 [facility] Comment on above: Performed By: #### C BC #### [facility] [address] [place] [address] Dr. Ember Teague EO # 0.2 103/ul Normal 0.0-0.7 [facility] Comment on above: Performed By: #### C BC #### [facility] [address] [place] [address] Dr. Ember Teague Eosinophils/100 WBC (Bld) 3.7 % Normal 0.9-7.0 [facility] Comment on above: Performed By: #### C BC #### [facility] [address] [place] [address] Dr. Ember Teague Erythrocyte distribution width (RBC) [Ratio] 15.0 % Normal 11.0-15.0 [facility] Comment on above: Performed By: #### C BC #### [facility] [address] [place] [address] Dr. Ember Teague Hematocrit (Bld) [Volume fraction] 27.9 % Critically low 36.0-48.0 [facility] Comment on above: Performed By: #### C BC #### [facility] [address] [place] [address] Dr. Ember Teague Hemoglobin (Bld) [Mass/Vol] 9.7 g/dL Critically low 12.0-16.0 [facility] Comment on above: Performed By: #### C BC #### [facility] [address] [place] [address] Dr. Ember Teague IG # 0.01 10e3/ul Normal 0.00-0.03 [facility] Comment on above: Performed By: #### C BC #### [facility] [address] [place] [address] Dr. Ember Teague IG % 0.2 % Normal 0.0-0.5 [facility] Comment on above: Performed By: #### C BC #### [facility] [address] [place] [address] Dr. Ember Teague LYMPH # 1.9 103/ul Normal 1.2-3.8 [facility] Comment on above: Performed By: #### C BC #### [facility] [address] [place] [address] Dr. Ember Teague Lymphocytes/100 WBC (Bld) 32.2 % Normal 20.5-60.0 [facility] Comment on above: Performed By: #### C BC #### [facility] [address] [place] [address] Dr. Ember Teague MANUAL DIFF REQ NO Normal [facility] Comment on above: Performed By: #### C BC #### [facility] [address] [address] [address] Ember Teague MCH (RBC) [Entitic mass] 31.4 pg Normal 26.7-34.0 [facility] Comment on above: Performed By: #### C BC #### [facility] [address] [address] [address] Ember Teague MCHC (RBC) [Mass/Vol] 34.8 g/dL Normal 29.9-35.2 [facility] Comment on above: Performed By: #### C BC #### [facility] [address] [address] [address] Ember Teague MCV (RBC) [Entitic vol] 90.3 fL Normal 81.0-99.0 [facility] Comment on above: Performed By: #### C BC #### [facility] [address] [place] [address] Dr. Ember Teague MONO # 0.6 103/ul Normal 0.3-0.8 [facility] Comment on above: Performed By: #### C BC #### [facility] [address] [place] [address] Dr. Ember Teague Monocytes/100 WBC (Bld) 9.8 % Normal 1.7-12.0 [facility] Comment on above: Performed By: #### C BC #### [facility] [address] [place] [address] Dr. Ember Teague NEUT # 3.2 103/ul Normal 1.4-6.5 [facility] Comment on above: Performed By: #### C BC #### [facility] [address] [place] [address] Dr. Ember Teague Neutrophils/100 WBC (Bld) 53.8 % Normal 43.0-75.0 [facility] Comment on above: Performed By: #### C BC #### [facility] [address] [place] [address] Dr. mEber Teague Platelet mean volume (Bld) [Entitic vol] 10.0 fL Normal 9.5-13.5 [facility] Comment on above: Performed By: #### C BC #### [facility] [address] [address] [address] Ember Teague PLT 194 103/ul Normal 150-450 [facility] Comment on above: Performed By: #### C BC #### [facility] [address] [place] [address] Dr. Ember Teague RBC 3.09 106/ul Critically low 4.20-5.40 [facility] Comment on above: Performed By: #### C BC #### [facility] [address] [place] [address] Dr. Ember Teague WBC 6.0 103/ul Normal 4.0-11.0 [facility] Comment on above: Performed By: #### C BC #### [facility] [address] [place] [address] Dr. Ember Teague PTH INTACTon 06-26-2022 PTH, Intact 39 pg/mL Normal 15-65 [facility] Comment on above: Performed By: #### P THINT #### [facility] [address] [place] [address] Dr. Ember Teague CBC AUTO DIFFon 06-25-2022 BASO # 0.1 103/ul Normal 0.0-0.1 [facility] Comment on above: Performed By: #### C VDTBH #### [facility] [address] [place] [address] Dr. Ember Teague Basophils/100 WBC (Bld) 0.6 % Normal 0.2-2.0 [facility] Comment on above: Performed By: #### C VDTBH #### [facility] [address] [place] [address] Dr. Ember Teague EO # 0.2 103/ul Normal 0.0-0.7 [facility] Comment on above: Performed By: #### C VDTBH #### [facility] [address] [place] [address] Dr. Ember Teague Eosinophils/100 WBC (Bld) 3.0 % Normal 0.9-7.0 [facility] Comment on above: Performed By: #### C VDTBH #### [facility] [address] [place] [address] Dr. Ember Teague Erythrocyte distribution width (RBC) [Ratio] 14.2 % Normal 11.0-15.0 [facility] Comment on above: Performed By: #### C VDTBH #### [facility] [address] [place] [address] Dr. Ember Teague Hematocrit (Bld) [Volume fraction] 30.9 % Critically low 36.0-48.0 [facility] Comment on above: Performed By: #### C VDTBH #### [facility] [address] [place] [address] Dr. Ember Teague Hemoglobin (Bld) [Mass/Vol] 10.6 g/dL Critically low 12.0-16.0 [facility] Comment on above: Performed By: #### C VDTBH #### [facility] [address] [place] [address] Dr. Ember Teague IG # 0.04 10e3/ul Critically high 0.00-0.03 [facility] Comment on above: Performed By: #### C VDTBH #### [facility] [address] [place] [address] Dr. Ember Teague IG % 0.5 % Normal 0.0-0.5 [facility] Comment on above: Performed By: #### C VDTBH #### [facility] [address] [place] [address] Dr. Ember Teague LYMPH # 2.2 103/ul Normal 1.2-3.8 [facility] Comment on above: Performed By: #### C VDTBH #### [facility] [address] [place] [address] Dr. Ember Teague Lymphocytes/100 WBC (Bld) 27.0 % Normal 20.5-60.0 [facility] Comment on above: Performed By: #### C VDTBH #### [facility] [address] [place] [address] Dr. Ember Teague MANUAL DIFF REQ NO Normal [facility] Comment on above: Performed By: #### C VDTBH #### [facility] [address] [place] [address] Dr. Ember Teague MCH (RBC) [Entitic mass] 31.2 pg Normal 26.7-34.0 [facility] Comment on above: Performed By: #### C VDTBH #### [facility] [address] [place] [address] Dr. Ember Teague MCHC (RBC) [Mass/Vol] 34.3 g/dL Normal 29.9-35.2 [facility] Comment on above: Performed By: #### C VDTBH #### [facility] [address] [place] [address] Dr. Ember Teague MCV (RBC) [Entitic vol] 90.9 fL Normal 81.0-99.0 [facility] Comment on above: Performed By: #### C VDTBH #### [facility] [address] [place] [address] Dr. Ember Teague MONO # 0.7 103/ul Normal 0.3-0.8 [facility] Comment on above: Performed By: #### C VDTBH #### [facility] [address] [place] [address] Dr. Ember Teague Monocytes/100 WBC (Bld) 9.2 % Normal 1.7-12.0 [facility] Comment on above: Performed By: #### C VDTBH #### [facility] [address] [place] [address] Dr. Ember Teague NEUT # 4.8 103/ul Normal 1.4-6.5 [facility] Comment on above: Performed By: #### C VDTBH #### [facility] [address] [place] [address] Dr. Ember Teague Neutrophils/100 WBC (Bld) 59.7 % Normal 43.0-75.0 [facility] Comment on above: Performed By: #### C VDTBH #### [facility] [address] [place] [address] Dr. Ember Teague Platelet mean volume (Bld) [Entitic vol] 9.3 fL Critically low 9.5-13.5 [facility] Comment on above: Performed By: #### C VDTBH #### [facility] [address] [address] [address] Ember Teague PLT 227 103/ul Normal 150-450 [facility] Comment on above: Performed By: #### C VDTBH #### [facility] [address] [address] [address] Ember Teague RBC 3.40 106/ul Critically low 4.20-5.40 [facility] Comment on above: Performed By: #### C VDTBH #### [facility] [address] [place] [address] Dr. Ember Teague WBC 8.0 103/ul Normal 4.0-11.0 [facility] Comment on above: Performed By: #### C VDTBH #### [facility] [address] [place] [address] Dr. Ember Teague MRI LSPINE WO CONon [...] YANET HUERTA Date: 2022-06-25 08:45 Normal [facility] RENAL FUNCTION PANELon 06-25 Albumin [Mass/Vol] 3.9 g/dL Normal 3.4-5.0 [facility] [place] Comment on above: Performed By: #### P THINT #### [facility] [address] [address] [address] Ember Teague Calcium [Mass/Vol] 9.5 mg/dL Normal 8.5-10.1 [facility] Comment on above: Performed By: #### P THINT #### [facility] [address] [address] [address] Ember Teague Chloride [Moles/Vol] 102 mmol/L Normal 98-107 [facility] Comment on above: Performed By: #### P THINT #### [facility] [address] [address] [address] Ember Teague CO2 [Moles/Vol] 23.8 mmol/L Normal 21.0-32.0 [facility] Comment on above: Performed By: #### P THINT #### [facility] [address] [address] [address] Ember Teague Creatinine [Mass/Vol] 1.75 mg/dL Critically high 0.55-1.02 [facility] Comment on above: Performed By: #### P THINT #### [facility] [address] [address] [address] Ember Teague EGFR-AF ECUADOREAN 34 mL/min/1.73m2 Critically low >=60 [facility] Comment on above: Performed By: #### P THINT #### [facility] [address] [address] [address] Ember Teague EGFR-NON AF ECUADOREAN 28 mL/min/1.73m2 Critically low >=60 [facility] Comment on above: Performed By: #### P THINT #### [facility] [address] [address] [address] Ember Teague Glucose [Mass/Vol] 199 mg/dL Critically high 74-106 [facility] Comment on above: Performed By: #### P THINT #### [facility] [address] [address] [address] Ember Teague Phosphate [Mass/Vol] 4.3 mg/dL Normal 2.6-4.7 [facility] Comment on above: Performed By: #### P THINT #### [facility] [address] [address] [address] Ember Teague Potassium [Moles/Vol] 4.9 mmol/L Normal 3.5-5.1 [facility] Comment on above: Performed By: #### P THINT #### [facility] [address] [address] [address] Ember Teague Sodium [Moles/Vol] 135 mmol/L Critically low 136-[address] [facility] Comment on above: Performed By: #### P THINT #### [facility] [address] [address] [address] Ember Teague Urea nitrogen [Mass/Vol] 34.0 mg/dL Critically high 7.0-18.0 [facility] Comment on above: Performed By: #### P THINT #### [facility] [address] [address] [address] Ember Teague VITAMIN D 25 OHon 06-25-2022 VIT D 25-OH 40.6 ng/mL Normal [facility] Comment on above: Performed By: #### P THINT #### [facility] [address] [address] [address] Ember Teague VIT D RANGES SEE BELOW Normal [facility] Comment on above: Result Comment: <20 ng/mL Vit D deficient 20 - <30 ng/mL Vit D insufficient 30 - 100 ng/mL Vit D sufficient >100 ng/mL Potential Toxicity Performed By: #### P THINT #### [facility] [address] [place] [address] Dr. Ember Teague Covid-19 PCR ([facility])on 06-07 SARS-CoV-2 (COVID-19) RNA ALEXX+probe Ql (Unsp spec) Not detected Normal NOT DETECTED [facility] Comment on above: Result Comment: This test is not yet approved or cleared by the [place] FDA. When there are no FDA-approved or cleared tests available, and other criteria are met, FDA can make tests available under an emergency access mechanism called an Emergency Use Authorization (EUA). The EUA for this test is supported by the Validation Leader of Health and Human Service's (HHS's) declaration [...] consistent with SARS-CoV-2. Performed By: #### [facility] #### [facility] [address] [place] [address] LSPINE WO CONon 2 CT LSPINE WO CON EXAMINATION: CT LSPINE [...] by: YANET HUERTA Date: 2022-06-01 18:02 Normal [facility] XR LSPINE MIN 4 VIEWSon 05-07 [...] YANET HUERTA Date: 2022-05-21 15:25 Normal [facility] PTH INTACTon 05-03-2022 PTH, Intact 60 pg/mL Normal 15-65 [facility] Comment on above: Performed By: #### C VDTB #### [facility] [address] [place] [address] Dr. Ember Teague VIT D 25-OH [facility]on 2021 Vitamin D, 25-Hydroxy 26.1 ng/mL Critically low 30.0-100.0 [facility] Comment on above: Result Comment: Sara min D deficiency has been defined by the Diana of Medicine and an Endocrine Society practice guideline as a level of serum 25-OH vitamin D less than 20 ng/mL (1,2). The Endocrine Society went on to further define vitamin D insufficiency as a level between 21 and 29 ng/mL (2). 1. IOM ([place] of Medicine). 2010. Dietary reference intakes for calcium and D. [place]: The National Academies Press. 2. Sherice MF, Wendy NC, Huan ZHONG, et al. Evaluation, treatment, and prevention of vitamin D deficiency: an Endocrine Society clinical practice guideline. JCEM. 2010; 96(7):1911-30. Performed By: #### R ENAL #### [facility] [address] [place] [address] Dr. Ember Teague FERRITINon 05-02-2022 Ferritin [Mass/Vol] 590.0 ng/mL Critically high 8.0-252.0 [facility] Comment on above: Performed By: #### R ENAL #### [facility] [address] [place] [address] Dr. Ember Teague HEMOGRAM AND PLATELon 2021 Hematocrit (Bld) [Volume fraction] 28.4 % Critically low 36.0-48.0 [facility] Comment on above: Performed By: #### C VDTBH #### [facility] [address] [place] [address] Dr. Ember Teague Hemoglobin (Bld) [Mass/Vol] 9.6 g/dL Critically low 12.0-16.0 [facility] Comment on above: Performed By: #### C VDTBH #### [facility] [address] [place] [address] Dr. Ember Teague MCH (RBC) [Entitic mass] 31.0 pg Normal 26.7-34.0 [facility] Comment on above: Performed By: #### C VDTBH #### [facility] [address] [place] [address] Dr. Ember Teague MCHC (RBC) [Mass/Vol] 33.8 g/dL Normal 29.9-35.2 [facility] Comment on above: Performed By: #### C VDTBH #### [facility] [address] [address] [address] Ember Teague MCV (RBC) [Entitic vol] 91.6 fL Normal 81.0-99.0 [facility] Comment on above: Performed By: #### C VDTBH #### [facility] [address] [place] [address] Dr. Ember Teague PLT 189 103/ul Normal 150-450 [facility] Comment on above: Performed By: #### C VDTBH #### [facility] [address] [address] [address] Ember Teague RBC 3.10 106/ul Critically low 4.20-5.40 [facility] Comment on above: Performed By: #### C VDTBH #### [facility] [address] [place] [address] Dr. Ember Teague WBC 6.2 103/ul Normal 4.0-11.0 [facility] Comment on above: Performed By: #### C VDTBH #### [facility] [address] [place] [address] Dr. Ember Teague IRON AND TIBCon 05-02-2022 % SATURATION 34.3 % Normal [facility] Comment on above: Performed By: #### R ENAL #### [facility] [address] [place] [address] Dr. Ember Teague Iron [Mass/Vol] 69.0 ug/dL Normal 50.0-170.0 [facility] Comment on above: Performed By: #### R ENAL #### [facility] [address] [place] [address] Dr. Ember Teague TIBC DIRECT 201.0 ug/dL Critically low 250.0-450.0 [facility] Comment on above: Performed By: #### R ENAL #### [facility] [address] [place] [address] Dr. Ember Teague MAGNESIUMon 05-02-2022 Magnesium [Mass/Vol] 1.7 mg/dL Critically low 1.8-2.4 [facility] Comment on above: Performed By: #### C VDTBH #### [facility] [address] [address] [address] Ember Teague RENAL FUNCTION PANELon 05-02 Albumin [Mass/Vol] 3.6 g/dL Normal 3.4-5.0 [facility] [place] Comment on above: Performed By: #### C VDTBH #### [facility] [address] [place] [address] Dr. Ember Teague Calcium [Mass/Vol] 9.2 mg/dL Normal 8.5-10.1 [facility] [place] Comment on above: Performed By: #### C VDTBH #### [facility] [address] [place] [address] Dr. Ember Teague Chloride [Moles/Vol] 107 mmol/L Normal 98-107 [facility] Comment on above: Performed By: #### C VDTBH #### [facility] [address] [place] [address] Dr. Ember Teague CO2 [Moles/Vol] 21.2 mmol/L Normal 21.0-32.0 [facility] Comment on above: Performed By: #### C VDTBH #### [facility] [address] [place] [address] Dr. Ember Teague Creatinine [Mass/Vol] 1.75 mg/dL Critically high 0.55-1.02 [facility] Comment on above: Performed By: #### C VDTBH #### [facility] [address] [place] [address] Dr. Ember Teague EGFR-AF ECUADOREAN 34 mL/min/1.73m2 Critically low >=60 [facility] Comment on above: Performed By: #### C VDTBH #### [facility] [address] [place] [address] Dr. Ember Teague EGFR-NON AF ECUADOREAN 28 mL/min/1.73m2 Critically low >=60 [facility] Comment on above: Performed By: #### C VDTBH #### [facility] [address] [place] [address] Dr. Ember Teague Glucose [Mass/Vol] 193 mg/dL Critically high 74-106 [facility] Comment on above: Performed By: #### C VDTBH #### [facility] [address] [place] [address] Dr. Ember Teague Phosphate [Mass/Vol] 4.2 mg/dL Normal 2.6-4.7 [facility] Comment on above: Performed By: #### C VDTBH #### [facility] [address] [place] [address] Dr. Ember Teague Potassium [Moles/Vol] 5.1 mmol/L Normal 3.5-5.1 [facility] Comment on above: Performed By: #### C VDTBH #### [facility] [address] [place] [address] Dr. Ember Teague Sodium [Moles/Vol] 139 mmol/L Normal 136-145 [facility] [place] Comment on above: Performed By: #### C VDTBH #### [facility] [address] [place] [address] Dr. Ember Teague Urea nitrogen [Mass/Vol] 34.0 mg/dL Critically high 7.0-18.0 [facility] Comment on above: Performed By: #### C VDTBH #### [facility] [address] [place] [address] Dr. Ember Teague UA RANDOM W/MICROSCOPICon BACTERIA SMALL Abnormal NONE SEEN [facility] Comment on above: Performed By: #### C VDTBH #### [facility] [address] [place] [address] Dr. Ember Teague Bilirubin Ql (U) Negative Normal NEGATIVE [facility] Comment on above: Performed By: #### C VDTBH #### [facility] [address] [place] [address] Dr. Ember Teague CAST NONE SEEN Normal NONE SEEN [facility] Comment on above: Performed By: #### C VDTBH #### [facility] [address] [place] [address] Dr. Ember Teague Clarity (U) CLEAR Normal CLEAR [facility] Comment on above: Performed By: #### C VDTBH #### [facility] [address] [place] [address] Dr. Ember Teague Color (U) LT. YELLOW Normal YELLOW [facility] Comment on above: Performed By: #### C VDTBH #### [facility] [address] [place] [address] Dr. Ember Teague Crystals LM Nom (Urine sed) NONE SEEN Normal NONE SEEN [facility] Comment on above: Performed By: #### C VDTBH #### [facility] [address] [place] [address] Dr. Ember Teague Epithelial cells LM Ql (Urine sed) MODERATE Abnormal NONE SEEN /RARE [facility] Comment on above: Performed By: #### C VDTBH #### [facility] [address] [place] [address] Dr. Ember Teague Glucose Ql (U) Negative Normal NEGATIVE [facility] Comment on above: Performed By: #### C VDTBH #### [facility] [address] [place] [address] Dr. Ember Teague Hemoglobin Ql (U) Negative Normal NEGATIVE [facility] Comment on above: Performed By: #### C VDTBH #### [facility] [address] [place] [address] Dr. Ember Teague Ketones Ql (U) Negative Normal NEGATIVE [facility] Comment on above: Performed By: #### C VDTBH #### [facility] [address] [place] [address] Dr. Ember Teague LEUKOCYTES TRACE Abnormal NEGATIVE [facility] Comment on above: Performed By: #### C VDTBH #### [facility] [address] [place] [address] Dr. Ember Teague MUCOUS NONE SEEN Normal NONE SEEN [facility] Comment on above: Performed By: #### C VDTBH #### [facility] [address] [place] [address] Dr. Ember Teague Nitrite Ql (U) Negative Normal NEGATIVE [facility] Comment on above: Performed By: #### C VDTBH #### [facility] [address] [place] [address] Dr. Ember Teague pH (U) 5.0 [pH] Normal 5-9 [facility] Comment on above: Performed By: #### C VDTBH #### [facility] [address] [place] [address] Dr. Ember Teague RBC NONE SEEN Abnormal 0-2 [facility] Comment on above: Performed By: #### C VDTBH #### [facility] [address] [place] [address] Dr. Ember Teague SPEC GRAVITY 1.015 Normal 1.005-<=1.025 [facility] Comment on above: Performed By: #### C VDTB #### [facility] [address] [place] [address] Dr. Ember Teague UA PROTEIN TRACE Normal NEGATIVE/ TRACE [facility] Comment on above: Performed By: #### C VDTB #### [facility] [address] [place] [address] Dr. Ember Teague Urobilinogen Qn (U) 0.2 {Esau'U}/dL Normal 0.2 - 1. 0 [facility] Comment on above: Performed By: #### C VDTB #### [facility] [address] [place] [address] Dr. Ember Teague WBC 0-2 Abnormal NONE SEEN [facility] Comment on above: Performed By: #### C VDTBH #### [facility] [address] [place] [address] Dr. Ember Teague URIC ACID SERUMon 05-02-2022 Urate [Mass/Vol] 4.4 mg/dL Normal 2.6-6.0 [facility] Comment on above: Performed By: #### C BC #### [facility] [address] [place] [address] Dr. Ember Teague URINE T PROTEIN CREAT RATIOo n 05-02-2022 Protein (U) [Mass/Vol] 33.7 mg/dL Critically high <=12.0 [facility] Comment on above: Performed By: #### C VDTBH #### [facility] [address] [place], [place] [address] Dr. Ember Teague UR PROT CREAT RAT 0.69 Normal [facility] Comment on above: Performed By: #### C VDTBH #### [facility] [address] [address] [address] Ember Teageu URINE CREAT 48.93 mg/dL Normal 20.00-300.00 [facility] Comment on above: Performed By: #### C VDTBH #### [facility] [address] [address] [address] Ember Teague Vital Signs Date Time Vital Sign Value Performing Clinician Facility 11-04-2023 11:00-0500 Body height 168.91 cm Ron Doreen Other [facility] Other 11-04-2023 11:00-0500 Body mass index (BMI) [Ratio] 30.17 kg/m2 Ron Doreen Other [facility] Other 11-04-2023 11:00-0500 Body temperature 97.6 [degF] Ron Doreen Other [facility] Other 11-04-2023 11:00-0500 Body weight 86.09 kg Ron Doreen Other [facility] Other 11-04-2023 11:00-0500 Diastolic blood pressure 76 mm[Hg] Ron Doreen Other [facility] Other 11-04-2023 11:00-0500 Respiratory rate 18 /min Ron Doreen Other [facility] Other 11-04-2023 11:00-0500 SaO2% (BldA) [Mass fraction] 98 % Ron Doreen Other [facility] Other 11-04-2023 11:00-0500 Systolic blood pressure 153 mm[Hg] Ron Doreen Other [facility] Other 10-15-2023 13:00-0500 Body height 168.91 cm Ron Doreen Other [facility] Other 10-15-2023 13:00-0500 Body mass index (BMI) [Ratio] 29.82 kg/m2 Ron Doreen Other [facility] Other 10-15-2023 13:00-0500 Body temperature 97.5 [degF] Ron Doreen Other [facility] Other 10-15-2023 13:00-0500 Body weight 85.1 kg Ron Doreen Other [facility] Other 10-15-2023 13:00-0500 Diastolic blood pressure 68 mm[Hg] Ron Doreen Other [facility] Other 10-15-2023 13:00-0500 Respiratory rate 18 /min Ron Doreen Other [facility] Other 10-15-2023 13:00-0500 SaO2% (BldA) [Mass fraction] 98 % Ron Doreen Other [facility] Other 10-15-2023 13:00-0500 Systolic blood pressure 113 mm[Hg] Ron Doreen Other [facility] Other 08-27-2023 09:40-0500 Body height 168.91 cm Aziz Bakhous Other [facility] Other 08-27-2023 09:40-0500 Body mass index (BMI) [Ratio] 30.2 kg/m2 Azduc Mensahs Other [facility] Other 08-27-2023 09:40-0500 Body temperature 96.7 [degF] Mary Anne Mensahs Other [facility] Other 08-27-2023 09:40-0500 Body weight 86.18 kg Mary Anne Mensahs Other [facility] Other 08-27-2023 09:40-0500 Diastolic blood pressure 72 mm[Hg] Mary Anne Mensahs Other [facility] Other 08-27-2023 09:40-0500 Respiratory rate 18 /min Mary Anne Mensahs Other [facility] Other 08-27-2023 09:40-0500 SaO2% (BldA) [Mass fraction] 98 % Mary Anne Mensahs Other [facility] Other 08-27-2023 09:40-0500 Systolic blood pressure 153 mm[Hg] Mary Anne Mensahs Other [facility] Other 08-15-2023 10:20-0500 Body height 168.91 cm Ron Doreen Other [facility] Other 08-15-2023 10:20-0500 Body mass index (BMI) [Ratio] 30.2 kg/m2 Ron Doreen Other [facility] Other 08-15-2023 10:20-0500 Body temperature 97.1 [degF] Ron Doreen Other [facility] Other 08-15-2023 10:20-0500 Body weight 86.18 kg Ron Doreen Other [facility] Other 08-15-2023 10:20-0500 Diastolic blood pressure 79 mm[Hg] Ron Doreen Other [facility] Other 08-15-2023 10:20-0500 Respiratory rate 18 /min Ron Doreen Other [facility] Other 08-15-2023 10:20-0500 SaO2% (BldA) [Mass fraction] 98 % Ron Doreen Other [facility] Other 08-15-2023 10:20-0500 Systolic blood pressure 164 mm[Hg] Ron Doreen Other [facility] Other 08-13-2023 15:40-0500 Body height 168.91 cm Ron Doreen Other [facility] Other 08-13-2023 15:40-0500 Body mass index (BMI) [Ratio] 30.24 kg/m2 Ron Doreen Other [facility] Other 08-13-2023 15:40-0500 Body temperature 97.2 [degF] Ron Doreen Other [facility] Other 08-13-2023 15:40-0500 Body weight 86.27 kg Ron Doreen Other [facility] Other 08-13-2023 15:40-0500 Diastolic blood pressure 79 mm[Hg] Ron Doreen Other [facility] Other 08-13-2023 15:40-0500 Respiratory rate 18 /min Ron Doreen Other [facility] Other 08-13-2023 15:40-0500 SaO2% (BldA) [Mass fraction] 98 % Ron Doreen Other [facility] Other 08-13-2023 15:40-0500 Systolic blood pressure 186 mm[Hg] Ron Doreen Other [facility] Other 08-01-2023 13:00-0400 Body height 168.91 cm Ron Doreen Other [facility] Other 08-01-2023 13:00-0400 Body mass index (BMI) [Ratio] 30.55 kg/m2 Ron Doreen Other [facility] Other 08-01-2023 13:00-0400 Body temperature 97.8 [degF] Ron Doreen Other [facility] Other 08-01-2023 13:00-0400 Body weight 87.18 kg Ron Doreen Other [facility] Other 08-01-2023 13:00-0400 Diastolic blood pressure 72 mm[Hg] Ron Doreen Other [facility] Other 08-01-2023 13:00-0400 Respiratory rate 18 /min Ron Doreen Other [facility] Other 08-01-2023 13:00-0400 SaO2% (BldA) [Mass fraction] 98 % Ron Doreen Other [facility] Other 08-01-2023 13:00-0400 Systolic blood pressure 160 mm[Hg] Ron Doreen Other [facility] Other 06-24-2023 11:40-0400 Body height 168.91 cm Ron Doreen Other [facility] Other 06-24-2023 11:40-0400 Body mass index (BMI) [Ratio] 29.89 kg/m2 Ron Doreen Other [facility] Other 06-24-2023 11:40-0400 Body temperature 97.3 [degF] Ron Doreen Other [facility] Other 06-24-2023 11:40-0400 Body weight 85.28 kg Ron Doreen Other [facility] Other 06-24-2023 11:40-0400 Diastolic blood pressure 75 mm[Hg] Ron Doreen Other [facility] Other 06-24-2023 11:40-0400 Respiratory rate 18 /min Ron Doreen Other [facility] Other 06-24-2023 11:40-0400 SaO2% (BldA) [Mass fraction] 99 % Ron Doreen Other [facility] Other 06-24-2023 11:40-0400 Systolic blood pressure 129 mm[Hg] Ron Doreen Other [facility] Other 06-06-2023 15:20-0400 Body height 168.91 cm Ron Doreen Other [facility] Other 06-06-2023 15:20-0400 Body mass index (BMI) [Ratio] 29.92 kg/m2 Ron Doreen Other [facility] Other 06-06-2023 15:20-0400 Body temperature 96.5 [degF] Ron Doreen Other [facility] Other 06-06-2023 15:20-0400 Body weight 85.37 kg Ron Doreen Other [facility] Other 06-06-2023 15:20-0400 Diastolic blood pressure 49 mm[Hg] Ron Doreen Other [facility] Other 06-06-2023 15:20-0400 Respiratory rate 18 /min Ron Doreen Other [facility] Other 06-06-2023 15:20-0400 SaO2% (BldA) [Mass fraction] 99 % Ron Doreen Other [facility] Other 06-06-2023 15:20-0400 Systolic blood pressure 128 mm[Hg] Ron Doreen Other [facility] Other 04-30-2023 11:40-0400 Body height 168.91 cm Ron Doreen Other [facility] Other 04-30-2023 11:40-0400 Body mass index (BMI) [Ratio] 30.52 kg/m2 Ron Doreen Other [facility] Other 04-30-2023 11:40-0400 Body temperature 96.9 [degF] Ron Doreen Other [facility] Other 04-30-2023 11:40-0400 Body weight 87.09 kg Ron Doreen Other [facility] Other 04-30-2023 11:40-0400 Diastolic blood pressure 80 mm[Hg] Ron Doreen Other [facility] Other 04-30-2023 11:40-0400 Respiratory rate 18 /min Ron Doreen Other [facility] Other 04-30-2023 11:40-0400 SaO2% (BldA) [Mass fraction] 98 % Ron Doreen Other [facility] Other 04-30-2023 11:40-0400 Systolic blood pressure 150 mm[Hg] Ron Doreen Other [facility] Other 04-06-2023 09:00-0400 Body height 168.91 cm Ron Doreen Other [facility] Other 04-06-2023 09:00-0400 Body mass index (BMI) [Ratio] 30.36 kg/m2 Ron Doreen Other [facility] Other 04-06-2023 09:00-0400 Body weight 86.64 kg Ron Doreen Other [facility] Other 04-06-2023 09:00-0400 Diastolic blood pressure 54 mm[Hg] Ron Doreen Other [facility] Other 04-06-2023 09:00-0400 Respiratory rate 18 /min Ron Doreen Other [facility] Other 04-06-2023 09:00-0400 SaO2% (BldA) [Mass fraction] 98 % Ron Doreen Other [facility] Other 04-06-2023 09:00-0400 Systolic blood pressure 144 mm[Hg] Ron Doreen Other [facility] Other 04-02-2023 14:40-0400 Body height 168.91 cm Ron Doreen Other [facility] Other 04-02-2023 14:40-0400 Body mass index (BMI) [Ratio] 30.55 kg/m2 Ron Doreen Other [facility] Other 04-02-2023 14:40-0400 Body temperature 97 [degF] Ron Doreen Other [facility] Other 04-02-2023 14:40-0400 Body weight 87.18 kg Ron Doreen Other [facility] Other 04-02-2023 14:40-0400 Diastolic blood pressure 76 mm[Hg] Ron Doreen Other [facility] Other 04-02-2023 14:40-0400 Respiratory rate 18 /min Ron Doreen Other [facility] Other 04-02-2023 14:40-0400 SaO2% (BldA) [Mass fraction] 98 % Ron Doreen Other [facility] Other 04-02-2023 14:40-0400 Systolic blood pressure 183 mm[Hg] Ron Doreen Other [facility] Other 03-07-2023 09:20-0400 Body height 168.91 cm Ron Doreen Other [facility] Other 03-07-2023 09:20-0400 Body mass index (BMI) [Ratio] 30.52 kg/m2 Ron Doreen Other [facility] Other 03-07-2023 09:20-0400 Body temperature 97.1 [degF] Ron Doreen Other [facility] Other 03-07-2023 09:20-0400 Body weight 87.09 kg Ron Doreen Other [facility] Other 03-07-2023 09:20-0400 Diastolic blood pressure 72 mm[Hg] Ron Doreen Other [facility] Other 03-07-2023 09:20-0400 Respiratory rate 18 /min Ron Doreen Other [facility] Other 03-07-2023 09:20-0400 SaO2% (BldA) [Mass fraction] 97 % Ron Doreen Other [facility] Other 03-07-2023 09:20-0400 Systolic blood pressure 130 mm[Hg] Ron Doreen Other [facility] Other 12-20-2022 13:20-0400 Body height 168.91 cm Ron Doreen Other [facility] Other 12-20-2022 13:20-0400 Body mass index (BMI) [Ratio] 30.68 kg/m2 Ron Doreen Other [facility] Other 12-20-2022 13:20-0400 Body temperature 97.1 [degF] Ron Doreen Other [facility] Other 12-20-2022 13:20-0400 Body weight 87.54 kg Ron Doreen Other [facility] Other 12-20-2022 13:20-0400 Diastolic blood pressure 72 mm[Hg] Ron Doreen Other [facility] Other 12-20-2022 13:20-0400 Respiratory rate 18 /min Ron Doreen Other [facility] Other 12-20-2022 13:20-0400 SaO2% (BldA) [Mass fraction] 99 % Ron Doreen Other [facility] Other 12-20-2022 13:20-0400 Systolic blood pressure 139 mm[Hg] Ron Doreen Other [facility] Other 11-05-2022 14:00-0500 Body height 168.91 cm Ron Doreen Other [facility] Other 11-05-2022 14:00-0500 Body mass index (BMI) [Ratio] 30.59 kg/m2 Ron Doreen Other [facility] Other 11-05-2022 14:00-0500 Body temperature 96.8 [degF] Ron Doreen Other [facility] Other 11-05-2022 14:00-0500 Body weight 87.27 kg Ron Doreen Other [facility] Other 11-05-2022 14:00-0500 Diastolic blood pressure 72 mm[Hg] Ron Doreen Other [facility] Other 11-05-2022 14:00-0500 Respiratory rate 18 /min Ron Doreen Other [facility] Other 11-05-2022 14:00-0500 SaO2% (BldA) [Mass fraction] 98 % Ron Doreen Other [facility] Other 11-05-2022 14:00-0500 Systolic blood pressure 157 mm[Hg] Ron Doreen Other [facility] Other 09-27-2022 16:00-0500 Body height 168.91 cm Jana Monson Other [facility] Other 09-27-2022 16:00-0500 Body mass index (BMI) [Ratio] 30.55 kg/m2 Jana Monson Other [facility] Other 09-27-2022 16:00-0500 Body temperature 96.8 [degF] Jana Monson Other [facility] Other 09-27-2022 16:00-0500 Body weight 87.18 kg Jana Monson Other [facility] Other 09-27-2022 16:00-0500 Diastolic blood pressure 73 mm[Hg] Jana Monson Other [facility] Other 09-27-2022 16:00-0500 Respiratory rate 18 /min Jana Monson Other [facility] Other 09-27-2022 16:00-0500 SaO2% (BldA) [Mass fraction] 98 % Jana Monson Other [facility] Other 09-27-2022 16:00-0500 Systolic blood pressure 159 mm[Hg] Jana Monson Other [facility] Other 08-22-2022 12:00-0500 Body height 168.91 cm Ron Doreen Other [facility] Other 08-22-2022 12:00-0500 Body mass index (BMI) [Ratio] 30.65 kg/m2 Ron Doreen Other [facility] Other 08-22-2022 12:00-0500 Body temperature 96.9 [degF] Ron Doreen Other [facility] Other 08-22-2022 12:00-0500 Body weight 87.45 kg Ron Doreen Other [facility] Other 08-22-2022 12:00-0500 Diastolic blood pressure 75 mm[Hg] Ron Doreen Other [facility] Other 08-22-2022 12:00-0500 Respiratory rate 18 /min Ron Doreen Other [facility] Other 08-22-2022 12:00-0500 SaO2% (BldA) [Mass fraction] 96 % Ron Doreen Other [facility] Other 08-22-2022 12:00-0500 Systolic blood pressure 121 mm[Hg] Ron Doreen Other [facility] Other 05-08-2022 10:20-0400 Body height 168.91 cm Ron Doreen Other [facility] Other 05-08-2022 10:20-0400 Body mass index (BMI) [Ratio] 31.54 kg/m2 Ron Doreen Other [facility] Other 05-08-2022 10:20-0400 Body temperature 97.6 [degF] Ron Doreen Other [facility] Other 05-08-2022 10:20-0400 Body weight 89.99 kg Ron Doreen Other [facility] Other 05-08-2022 10:20-0400 Diastolic blood pressure 68 mm[Hg] Ron Doreen Other [facility] Other 05-08-2022 10:20-0400 Respiratory rate 18 /min Ron Doreen Other [facility] Other 05-08-2022 10:20-0400 SaO2% (BldA) [Mass fraction] 98 % Ron Doreen Other [facility] Other 05-08-2022 10:20-0400 Systolic blood pressure 131 mm[Hg] Ron Doreen Other [facility] Other 01-18-2022 10:20-0400 Body height 168.91 cm Ron Doreen Other [facility] Other 01-18-2022 10:20-0400 Body mass index (BMI) [Ratio] 31 kg/m2 Ron Doreen Other [facility] Other 01-18-2022 10:20-0400 Body temperature 96.4 [degF] Ron Doreen Other [facility] Other 01-18-2022 10:20-0400 Body weight 88.45 kg Ron Doreen Other [facility] Other 01-18-2022 10:20-0400 Diastolic blood pressure 74 mm[Hg] Ron Doreen Other [facility] Other 01-18-2022 10:20-0400 Respiratory rate 18 /min Ron Doreen Other [facility] Other 01-18-2022 10:20-0400 SaO2% (BldA) [Mass fraction] 97 % Ron Doreen Other [facility] Other 04-14-2022 10:20-0400 Systolic blood pressure 170 mm[Hg] Ron Dorene Other [facility] Other Encounters Encounter Date Encounter Type Care Provider Facility Start: 11-05-2023 End: 11-05-2023 ambulatory GA CRESPO Not Available Start: 11-04-2023 (INJECTION) INJECTION Ron Doreen [facility] Start: 11-04-2023 End: 11-04-2023 ambulatory Ron Doreen Other [facility] Other Start: 10-22-2023 End: 10-22-2023 ambulatory GA CRESPO Not Available Start: 10-15-2023 End: 10-15-2023 ambulatory Ron Doreen Other [facility] Other Start: 10-15-2023 Office outpatient visit 15 minutes Ron Doreen [facility] Start: 10-08-2023 End: 10-08-2023 ambulatory Aziz Bakhous Other [facility] Other Start: 10-08-2023 Telephone encounter Aziz Bakhous [facility] Start: 09-15-2023 End: 09-15-2023 ambulatory Ron Doreen Other [facility] Other Start: 09-15-2023 Telephone encounter Ron Doreen [facility] Start: 09-09-2023 End: 09-09-2023 ambulatory Ron Doreen Other [facility] Other Start: 09-09-2023 Telephone encounter Ron Doreen [facility] Start: 08-27-2023 (INJECTION) INJECTION Aziz Bakhous [facility] Start: 08-27-2023 End: 08-27-2023 ambulatory Aziz Bakhous Other [facility] Other Start: 08-15-2023 (INJECTION) INJECTION Ron Doreen [facility] Start: 08-15-2023 End: 08-15-2023 ambulatory Ron Doreen Other [facility] Other Start: 08-13-2023 (INJECTION) INJECTION [facility] D[facility] Start: 08-13-2023 End: 08-13-2023 ambulatory Ron Doreen Other [facility] Other Start: 08-01-2023 End: 08-01-2023 ambulatory Ron Doreen Other [facility] Other Start: 08-01-2023 Office outpatient visit 15 minutes Ron Doreen [facility] Start: 06-24-2023 End: 06-24-2023 ambulatory Ron Doreen Other [facility] Other Start: 06-24-2023 Office outpatient visit 10 minutes Ron Doreen [facility] Start: 06-06-2023 End: 06-06-2023 ambulatory Ron Doreen Other [facility] Other Start: 06-06-2023 Office outpatient visit 15 minutes Ron Doreen [facility] Start: 04-30-2023 End: 04-30-2023 ambulatory Ron Doreen Other [facility] Other Start: 04-30-2023 Office outpatient visit 15 minutes Ron Doreen [facility] Start: 04-06-2023 (INJECTION) INJECTION [facility] Start: 04-06-2023 End: 04-06-2023 ambulatory Ron Doreen Other [facility] Other Start: 04-06-2023 Telephone encounter Ron Doreen [facility] Start: 04-02-2023 End: 04-02-2023 ambulatory Ron Doreen Other [facility] Other Start: 04-02-2023 Office outpatient visit 15 minutes Ron Doreen [facility] Start: 04-02-2023 Telephone encounter Ron Doreen [facility] Start: 03-07-2023 End: 03-07-2023 ambulatory Ron Doreen Other [facility] Other Start: 03-07-2023 Office outpatient visit 15 minutes Ron Doreen [facility] Start: 01-22-2023 End: 01-23-2023 ambulatory RON DOREEN Facility:[facility] Start: 12-20-2022 End: 12-20-2022 ambulatory Ron Doreen Other [facility] Other Start: 12-20-2022 Office outpatient visit 15 minutes Ron Doreen [facility] Start: 12-17-2022 End: 12-18-[address] DHRUV GUTIERRES . Facility:[facility] Start: 12-10-2022 End: 12-11-2022 ambulatory RON DOREEN Facility:[facility] Start: 11-20-2022 End: 11-21-[address] BENI APARICIO Facility:[facility] Start: 11-05-2022 End: 11-05-2022 ambulatory Ron Doreen Other [facility] Other Start: 11-05-2022 Office outpatient visit 15 minutes Ron Doreen [facility] Start: 10-29-2022 End: 10-30-[address] JANA MONSON Facility:[facility] Start: 10-24-2022 End: 10-24-[address] LILLIAN ACOSTA . Facility:[facility] Start: 10-24-2022 End: 10-25-[address] DHRUV GUTIERRES . Facility:[facility] Start: 09-27-2022 End: 09-27-2022 ambulatory Jana Monson Other [facility] Other Start: 09-27-2022 Office outpatient visit 15 minutes Essreinaldo Elashi [facility] Start: 09-18-2022 End: 09-19-2022 ambulatory RON DOREEN Facility:[facility] Start: 09-11-2022 End: 09-11-[address] DHRUV GUTIERRES . Facility:[facility] Start: 08-22-2022 End: 08-22-2022 ambulatory Ron Doreen Other [facility] Other Start: 08-22-2022 Office outpatient visit 15 minutes Ron Doreen [facility] Start: 08-13-2022 End: 08-14-2022 ambulatory RON DOREEN Facility:[facility] Start: 06-25-2022 End: 06-26-[address] DHRUV GUTIERRES . Facility:[facility] Start: 06-18-2022 End: 06-18-[address] DHRUV GUTIERRES . Facility:[facility] Start: 06-01-2022 End: 06-02-[address] YANET HUERTA Facility:[facility] Start: 05-28-2022 End: 05-28-2022 ambulatory Ron Doreen Other [facility] Other Start: 05-28-2022 Telephone encounter Ron Doreen [facility] Start: 05-21-2022 End: 05-22-[address] DHRUV GUTIERRES . Facility:[facility] Start: 05-16-2022 End: 05-16-2022 ambulatory Ron Doreen Other [facility] Other Start: 05-16-2022 Telephone encounter Ron Doreen [facility] Start: 05-10-2022 End: 05-10-2022 ambulatory Ron Doreen Other [facility] Other Start: 05-10-2022 Telephone encounter Ron Doreen [facility] Start: 05-08-2022 End: 05-08-2022 ambulatory Ron Doreen Other [facility] Other Start: 05-08-2022 Office outpatient visit 25 minutes Ron Doreen [facility] Start: 05-02-2022 End: 05-03-2022 ambulatory RON DOREEN Facility: Start: 04-24-2022 End: 04-24-2022 ambulatory Mary Anne Ackerman Other [facility] Other Start: 04-24-2022 Telephone encounter Mary Anne Mensahs [facility] Start: 01-18-2022 End: 01-18-2022 ambulatory Ron Doreen Other [facility] Other Start: 01-18-2022 Office outpatient visit 25 minutes Ron Doreen [facility] Start: 05-21-2017 End: 05-22-2017 Ambulatory DEFAULT PHYSICIAN Facility:[facility] Payers Date Payer Category Payer Medicare [id number]. [id number] 1945 Unknown [id number] 2.16.84 [id number] 1945 Unknown [id number] 2.16.84 0.1.127577.3.579.2.593 1944 Unknown [id number] 2.16.84 0.1.053564.3.579.2.593 1944 Unknown [id number] 2.16.84 0.1.430517.3.579.2.593 1944 Unknown [id number] 2.16.84 0.1.185966.3.579.2.593 1944 Unknown [id number] 2.16.84 0.1.199660.3.579.2.593 1944 Unknown [id number] 2.16.84 0.1.457380.3.579.2.593 1944 Unknown [id number] 2.16.84 0.1.682439.3.579.2.593 1944 Unknown [id number] 2.16.84 0.1.629358.3.579.2.593 1944 Unknown [id number] 2.16.84 0.1.803447.3.579.2.593 1944 Unknown [id number] 2.16.84 0.1.211422.3.579.2.593 1944 Unknown [id number] 2.16.84 0.1.198580.3.579.2.593 1944 Unknown [id number] 2.16.84 0.1.909712.3.579.2.593 1944 Unknown [id number] 2.16.84 0.1.833352.3.579.2.593 1944 Unknown [id number] 2.16.84 0.1.362734.3.579.2.593 1944 Unknown [id number] 2.16.84 0.1.215466.3.579.2.593 1944 Unknown [id number] 2.16.84 0.1.071013.3.579.2.1259 1944 Unknown [id number] 2.16.84 0.1.540861.3.579.2.1259 Unknown Social History Date Type Detail Facility Unknown if ever smoked [facility] Other Sex Assigned At Sex Assigned At Bir th [facility] Other Clinical Notes 01-18-2022 to 11-04-2023 Note Date & Type Note Facility 11-04-2023 Evaluation note Encounter Date Diagnosis Assessment Notes Oct, Anemia of renal disease (ICD-10 - D63.1) Oct, CKD (chronic kidney disease) stage 4, GFR 15-29 ml/min (ICD-10 - N18.4) [employer] Other 01-09-2024 Evaluation note* Encounter Date Diagnosis Assessment Notes Treatment Notes Treatment Clinical Notes Oct, Anemia of renal dise ase (ICD-10 [...] high in the office. 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 [facility] Other 12-04-2023 Evaluation note* Encounter Date Diagnosis [...] 4, GFR 15-29 ml/min (ICD-10 - N18.4) [facility] Other 11-21-2023 Evaluation note* Encounter Date Diagnosis Assessment Notes Treatment Notes Treatment Clinical Notes Aug, Anemia of renal disease (ICD-10 - D63.1) Aug, CKD (chronic kidney disease) stage 4, GFR 15-29 ml/min (ICD-10 - N18.4) [facility] Other 11-09-2023 Evaluation note* Encounter Date Diagnosis [...] of kidney mass hydronephrosis or kidney stones. [facility] Other 10-26-2023 Evaluation note* Encounter Date Diagnosis [...] potassium improved with dietary restriction and Lasix. [facility] Other 09-18-2023 Evaluation note* Encounter Date Diagnosis [...] potassium improved with dietary restriction and Lasix. [facility] Other 08-31-2023 Evaluation note* Encounter Date Diagnosis [...] potassium improved with dietary restriction and Lasix. [facility] Other 07-25-2023 Evaluation note* Encounter Date Diagnosis [...] to normal with dietary restriction and Lasix. [facility] Other 07-01-2023 Evaluation note* Encounter Date Diagnosis Assessment Notes Treatment Notes Treatment Clinical Notes Apr, CKD (chronic kidney disease) stage 4, GFR 15-29 ml/min (ICD-10 - N18.4) Apr, Anemia of renal disease (ICD-10 - D63.1) [facility] Other 06-27-2023 Evaluation note* Encounter Date Diagnosis [...] to normal with dietary restriction and Lasix. [facility] Other 06-01-2023 Evaluation note* Encounter Date Diagnosis [...] potassium diet and provide information about it. [facility] Other 03-16-2023 Evaluation note* Encounter Date Diagnosis [...] to Continue Vit D 5000 units daily [facility] Other 01-30-2023 Evaluation note* Encounter Date Diagnosis [...] to Continue Vit D 5000 units daily [facility] Other 12-22-2022 Evaluation note* Encounter Date Diagnosis [...] to Continue Vit D 5000 units daily [facility] Other 11-16-2022 Evaluation note* Encounter Date Diagnosis [...] to Continue Vit D 5000 units daily [facility] Other 08-04-2022 Evaluation note* Encounter Date Diagnosis Assessment Notes Treatment Notes Treatment Clinical Notes May, Hypertensive chronic kidney disease with stage 1 through stage 4 chronic kidney disease, or unspecified chronic kidney disease (ICD-10 - I12.9) [facility] Other 08-02-2022 Evaluation note* Encounter Date Diagnosis [...] to Continue Vit D 5000 units daily [facility] Other 07-19-2022 Evaluation note* Encounter Date Diagnosis Assessment Notes Treatment Notes Treatment Clinical Notes Apr, Hypertensive chronic kidney disease with stage 1 through stage 4 chronic kidney disease, or unspecified chronic kidney disease (ICD-10 - I12.9) [facility] Other 04-14-2022 Evaluation note* Encounter Date Diagnosis [...] to take Vit D 1000 units daily [facility] Other Evaluation noteNo InformationN[facility] [employer] Other [facility] general Narrative - Reported* Type Description Date [...] History SEE ABOVE Hospitalization History COVID 09/2020 [facility] Other Hisiz[facility] general Narrative - Reported* Type Description Date [...] History SEE ABOVE Hospitalization History COVID 09/2020 [facility] Other Hisghlp general Narrative - Reported* Type Description Date [...] History SEE ABOVE Hospitalization History COVID 09/2020 [facility] Other History general Narrative - [facility] Other History general Narrative - Reported* Type [...] A LOT OF BLOOD Medical History UTI Medical History 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 Surgical History SINUS SURGERY Surgical History HYSTERECTOMY Surgical History GALLBLADDER Surgical History BILATERAL ROTATER CUFF REPAIR Surgical History CATARACTS Surgical History SKIN CANCER REMOVED WITH RECONS TRUCTION ON NOSE 10/2019 Surgical History QU[facility] 01/01/2021 Hospitalization History ELEVATED BLOOD PRESSURE Hospitalization History SEE ABOVE Hospitalization History COVID 09/2020 [facility] Other Summary Purpose Family History No Family History Records FoundNo Family History Records FoundNo Family History Records Found Advance Directives No Advanced Directives Records FoundNo Advanced Directives Records FoundNo Advanced Directives Records Found Additional Source Comments INFORMATION SOURCE (unrecogn ized section and content) DATE CREATED AUTHOR 04/02/2018 [facility] DATE CREATED AUTHOR AUTHOR'S ORGANIZ ATION 01/27/2023 [facility] DATE CREATED AUTHOR AUTHOR'S ORGANIZ ATION 11/06/2023 [facility] EPIC REASON FOR VISIT (unrecogniz ed section and content) CKD and AnemiaREFILLCKD and AnemiaREFILL FOR 100 DAY RXNo InformationClinicalCKD and AnemiaRENAL 6 WK RETACRITCKD and AnemiaCKD and AnemiaCKD and AnemiaCKD and AnemiaNo InformationNo InformationRETACRIT INJECTIONCKD and AnemiaCKD and HTNAnemia and CKDAnemia and CKDRENAL 2 WK INJ / RETACRIT - NURSERENAL RETACRIT INJECTIONRENAL 2 WK INJ RETACRITLAB ORDERSCRITICAL LAB RESULTRS APPTCKD and AnemiaRENAL 3 WK INJ / RETACRIT / NURSE FOR RECORDS PERTAINING TO PATIENTS WHO ARE [...] BE BASED ON THE PRIMARY CLINICAL RECORDS. [employer] provides no warranty or guarantee of the accuracy or completeness of information in this document.
[2023-11-12 07:08] LABS: Hematocrit 30.6 % (36.0-48.0); Hemoglobin 9.6 g/dL (12.0-16.0); Mean Corpuscular HGB Conc 31.4 g/dL (29.9-35.2); Mean Corpuscular Hemoglobin 30.2 pg (26.7-34.0); Mean Corpuscular Volume 96.2 fL (81.0-99.0); Mean Platelet Volume 9.4 fL (9.5-13.5); Platelet Count 204 10^3/uL (150-450); Red Blood Count 3.18 10^6/uL (4.20-5.40); White Blood Count 6.6 10^3/uL (4.0-11.0)
[2023-11-12 07:52] LABS: Albumin Level 3.3 g/dL (3.4-5.0); Anion Gap 16.2; BUN Creatinine Ratio 25.1; Calcium 9.4 mg/dL (8.5-10.1); Carbon Dioxide 22.6 mmol/L (21.0-32.0); Chloride 106 mmol/L (98-107); Estimated GFR (African America 33 (>=60); Estimated GFR (Non-African Ame 27 (>=60); Glucose 128 mg/dL (74-106); Phosphorus 4.7 mg/dL (2.6-4.7); Potassium 4.8 mmol/L (3.5-5.1); Sodium 140 mmol/L (136-145)
== END 2023-11-12 06:37 | disposition home or self-care (01) ==
LOC: LAB 06:36
PROVIDERS: PCP Family Medicine; Visit Provider Internal Medicine
DX: I12.9 Hypertensive chronic kidney disease with stage 1 through stage 4 chronic kidney disease, or unspecified chronic kidney disease (principal); D63.1 Anemia in chronic kidney disease; N18.9 Chronic kidney disease, unspecified
CPT/HCPCS: 36415; 80069; 85027

== ENCOUNTER 2023-12-02 06:34 | Outpatient (OUT) | payer MEDICARE, SELFPAY ==
--- OUTSIDE RECORDS SUMMARY | 2023-12-02 06:37 | XMS_ITS | CCD ---
Author Name Unknown Address [address] [place] [address] Organization [facility] Care Team Providers Care Compliance Officer Name Role Phone PHYSICIAN, DEFAULT Unavailable Unavailable PHYSICIAN, DEFAULT Unavailable Unavailable Doreen, Ron Unavailable RodricknickieMary Anne Unavailable Jana Monson Unavailable BHAVIK ., DR [employer] Unavailable [...] Facility (20 sources) amLODIPine Drug Allergy Unknown [facility] Other (20 sources) Amoxicillin / Clavulanate Drug Allergy Unknown [facility] Other (20 sources) Contrast media Propensity to adverse reactions Unknown [facility] Other (2 sources) Doxazosin; Translations: [doxazosin] Drug Allergy Unknown [facility] Other (20 sources) Sulfamethoxazole / Trimethoprim Drug Allergy Unknown [facility] Other (20 sources) Doxazosin Drug Allergy Unknown [facility] Other (9 sources) Amoxicillin / Clavulanate; Translations: [Augmentin] Drug Allergy 11-16-19 16 Unknown [facility] (1 source) amLODIPine Drug Allergy 04-25-20 14 [facility] (1 source) Sulfamethoxazole / Trimethoprim Drug Allergy 03-09-20 13 [facility] Medications Current Medications Medication Drug Class(es) [...] Active docusate sodium 50 mg / sennosides, long term 8.6 mg oral tablet (5 sources) take 1 tablet by mouth every twelve hours Sennosides-Docusate Sodium 8.6-50 MG 1 tablet in the evening as needed Orally every 12 hours Active epoetin johnna-epbx 38950 UNT/ML Injectable Solution [Retacrit] (14 sources) Retacrit 30026 U NIT/ML as directed Injection Active ferrous sulfate 325 mg oral tablet (20 sources) take 1 tablet by enzo every twelve hours Ferrous Sulfate 325 (65 [...] day Active Levemir FlexTouch 100 UNIT/M L (11 sources) Levemir FlexTouc h 100 UNIT/ML As [...] a day Active take 2 tablets by [facility] every twenty-four hours Liothyronine Sodium 5 MCG 2 tablets on a n empty stomach Orally Once a day Active take 2 tablets by [facility] every twenty-four hours lisinopril 10 mg [...] tablet Orally Once a day Active retacrit 45467 unit/ml solution (5 sources) Retacrit 03068 UNIT/ML as directed Injection Active Sennosides-Docusate Sodium [...] Sig (Original) RETACRIT INJECTION (20 sources) Start: 11-18-2023 RETACRIT INJECTION Nov, 1000 mL Start: 11-04-2023 RETACRIT INJEC TION Oct, 1000 mL Start: 10-15-2023 RETACRIT INJEC [...] kidney disease] Chronic Deficiency and other anemia (20 sources) Anemia in chronic kidney disease; Translations: [...] Onset: 2 Chronic Fluid and electrolyte disorders (8 sources) Hyperkalemia Episodic Gout and other crystal [...] 2 Resolved: 2 Chronic Other circulatory disease (2 sources) Arterial, arteriole and capillary disease; Translations: [Disorder [...] Chronic Other diseases of kidney and ureters (15 sources) Secondary hyperparathyroidism of renal origin; Translations: [...] [Volume fraction] 28.8 % Critically low 36.0-48.0 [facility] Comment on above: Performed By: #### H H #### [facility] [address] [place] [address] Dr. Ember Teague Hemoglobin (Bld) [Mass/Vol] 9.6 g/dL Critically low 12.0-16.0 [facility] Comment on above: Performed By: #### H H #### [facility] [address] [place] [address] Dr. Ember Teague MCH (RBC) [Entitic mass] 30.7 pg Normal 26.7-34.0 [facility] Comment on above: Performed By: #### H H #### [facility] [address] [place] [address] Dr. Ember Teague MCHC (RBC) [Mass/Vol] 33.3 g/dL Normal 29.9-35.2 [facility] Comment on above: Performed By: #### H H #### [facility] [address] [place] [address] Dr. Ember Teague MCV (RBC) [Entitic vol] 92.0 fL Normal 81.0-99.0 [facility] Comment on above: Performed By: #### H H #### [facility] [address] [place] [address] Dr. Ember Teague PLT 214 103/ul Normal 150-450 [facility] Comment on above: Performed By: #### H H #### [facility] [address] [place] [address] Dr. Ember Teague RBC 3.13 106/ul Critically low 4.20-5.40 [facility] Comment on above: Performed By: #### H H #### [facility] [address] [place] [address] Dr. Ember Teague WBC 7.4 103/ul Normal 4.0-11.0 [facility] Comment on above: Performed By: #### H H #### [facility] [address] [place] [address] Dr. Ember Teague MAGNESIUMon 01-22-2023 Magnesium [Mass/Vol] 1.8 mg/dL Normal 1.8-2.4 [facility] Comment on above: Performed By: #### M G, RENAL #### [facility] [address] [address] [address] Ember Teague RENAL FUNCTION PANELon 01-22 Albumin [Mass/Vol] 3.6 g/dL Normal 3.4-5.0 [facility] Comment on above: Performed By: #### M G, RENAL #### [facility] [address] [address] [address] Ember Teague Calcium [Mass/Vol] 9.7 mg/dL Normal 8.5-10.1 [facility] Comment on above: Performed By: #### M G, RENAL #### [facility] [address] [place] [address] Dr. Ember Teague Chloride [Moles/Vol] 105 mmol/L Normal 98-107 [facility] Comment on above: Performed By: #### M G, RENAL #### [facility] [address] [place] [address] Dr. Ember Teague CO2 [Moles/Vol] 22.6 mmol/L Normal 21.0-32.0 [facility] Comment on above: Performed By: #### M G, RENAL #### [facility] [address] [place] [address] Dr. Ember Teague Creatinine [Mass/Vol] 2.18 mg/dL Critically high 0.55-1.02 [facility] Comment on above: Performed By: #### M G, RENAL #### [facility] [address] [place] [address] Dr. Ember Teague EGFR-AF DUTCH 26 mL/min/1.73m2 Critically low >=60 [facility] Comment on above: Performed By: #### M G, RENAL #### [facility] [address] [address] [address] Ember Teague EGFR-NON AF DUTCH 22 mL/min/1.73m2 Critically low >=60 [facility] Comment on above: Performed By: #### M G, RENAL #### [facility] [address] [address] [address] Ember Teague Glucose [Mass/Vol] 134 mg/dL Critically high 74-106 [facility] Comment on above: Performed By: #### M G, RENAL #### [facility] [address] [address] [address] Ember Teague Phosphate [Mass/Vol] 4.6 mg/dL Normal 2.6-4.7 [facility] Comment on above: Performed By: #### M G, RENAL #### [facility] [address] [address] [address] Ember Teague Potassium [Moles/Vol] 5.1 mmol/L Normal 3.5-5.1 [facility] Comment on above: Performed By: #### M G, RENAL #### [facility] [address] [address] [address] Ember Teague Sodium [Moles/Vol] 138 mmol/L Normal 136-145 [facility] Comment on above: Performed By: #### M G, RENAL #### [facility] [address] [address] [address] Ember Teague Urea nitrogen [Mass/Vol] 61.0 mg/dL Critically high 7.0-18.0 [facility] Comment on above: Performed By: #### M G, RENAL #### [facility] [address] [address] [address] Ember Teague MG MAMM SCREEN 3D MAY CADon 12-17-2022 MG MAMM SCREEN 3D MAY CAD Patient: KYLAH BERGER Exam Date: 12/17/2022 : 1945 Gender:F Ordering : DR DHRUV GUTIERRES . Admission #: [id number] Family : Order #: [id number] CLICK HERE TO VIEW EXAM RADIOLOGY REPORT [...] lung cancer at age 61. LOCATION: [facility] BREAST COMPOSITION: Scattered areas fibroglandular density. FINDINGS: [...] MD on 12/17/2022 at 11:59 Normal [facility] FERRITINon 12-10-2022 Ferritin [Mass/Vol] 681.0 ng/mL Critically high 8.0-252.0 [facility] Comment on above: Performed By: #### P THINT #### [facility] [address] [place] [address] Dr. Ember Teague HEMOGRAM AND PLATELon 2022 Hematocrit (Bld) [Volume fraction] 27.1 % Critically low 36.0-48.0 [facility] Comment on above: Performed By: #### C VDTBH #### [facility] [address] [place] [address] Dr. Ember Teague Hemoglobin (Bld) [Mass/Vol] 9.7 g/dL Critically low 12.0-16.0 [facility] Comment on above: Performed By: #### C VDTBH #### [facility] [address] [address] [address] Ember Teague MCH (RBC) [Entitic mass] 31.4 pg Normal 26.7-34.0 [facility] Comment on above: Performed By: #### C VDTBH #### [facility] [address] [address] [address] Ember Teague MCHC (RBC) [Mass/Vol] 35.8 g/dL Critically high 29.9-35.2 [facility] Comment on above: Performed By: #### C VDTBH #### [facility] [address] [place] [address] Dr. Ember Teague MCV (RBC) [Entitic vol] 87.7 fL Normal 81.0-99.0 [facility] Comment on above: Performed By: #### C VDTBH #### [facility] [address] [place] [address] Dr. Ember Teague PLT 218 103/ul Normal 150-450 [facility] Comment on above: Performed By: #### C VDTBH #### [facility] [address] [place] [address] Dr. Ember Teague RBC 3.09 106/ul Critically low 4.20-5.40 [facility] Comment on above: Performed By: #### C VDTBH #### [facility] [address] [place] [address] Dr. Ember Teague WBC 6.6 103/ul Normal 4.0-11.0 [facility] Comment on above: Performed By: #### C VDTBH #### [facility] [address] [place] [address] Dr. Ember Teague IRON AND TIBCon 12-10-2022 % SATURATION 30.2 % Normal [facility] Comment on above: Performed By: #### P THINT #### [facility] [address] [place] [address] Dr. Ember Teague Iron [Mass/Vol] 84.0 ug/dL Normal 50.0-170.0 [facility] Comment on above: Performed By: #### P THINT #### [facility] [address] [place] [address] Dr. Ember Teague TIBC DIRECT 278.0 ug/dL Normal 250.0-450.0 [facility] Comment on above: Performed By: #### P THINT #### [facility] [address] [place] [address] Dr. Ember Teague XR FOOT MAY MIN 3 VIEWSon 02 -14-2023 XR FOOT MAY MIN 3 VIEWS EXAMINATION: [...] BENI APARICIO Date: 2022-11-20 14:03 Normal [facility] HEMOGRAM AND PLATELon 2022 Hematocrit (Bld) [Volume fraction] 27.7 % Critically low 36.0-48.0 [facility] Comment on above: Performed By: #### R ENAL #### [facility] [address] [place] [address] Dr. Ember Teague Hemoglobin (Bld) [Mass/Vol] 10.0 g/dL Critically low 12.0-16.0 [facility] Comment on above: Performed By: #### R ENAL #### [facility] [address] [place] [address] Dr. Ember Teague MCH (RBC) [Entitic mass] 31.6 pg Normal 26.7-34.0 [facility] Comment on above: Performed By: #### R ENAL #### [facility] [address] [place] [address] Dr. Ember eTague MCHC (RBC) [Mass/Vol] 36.1 g/dL Critically high 29.9-35.2 [facility] Comment on above: Performed By: #### R ENAL #### [facility] [address] [place] [address] Dr. Ember Teague MCV (RBC) [Entitic vol] 87.7 fL Normal 81.0-99.0 [facility] Comment on above: Performed By: #### R ENAL #### [facility] [address] [address] [address] Ember Teague PLT 182 103/ul Normal 150-450 [facility] Comment on above: Performed By: #### R ENAL #### [facility] [address] [address] [address] Ember Teague RBC 3.16 106/ul Critically low 4.20-5.40 [facility] Comment on above: Performed By: #### R ENAL #### [facility] [address] [address] [address] Ember Teague WBC 6.8 103/ul Normal 4.0-11.0 [facility] Comment on above: Performed By: #### R ENAL #### [facility] [address] [place] [address] Dr. Ember Teague PROF CHEM 8 (BAS METB)on Anion gap [Moles/Vol] 17.6 mmol/L Normal [facility] Comment on above: Performed By: #### C VDTBH #### [facility] [address] [place] [address] Dr. Ember Teague Calcium [Mass/Vol] 9.0 mg/dL Normal 8.5-10.1 [facility] Comment on above: Performed By: #### C VDTBH #### [facility] [address] [place] [address] Dr. Ember Teague Chloride [Moles/Vol] 104 mmol/L Normal 98-107 [facility] Comment on above: Performed By: #### C VDTBH #### [facility] [address] [place] [address] Dr. Ember Teague CO2 [Moles/Vol] 22.2 mmol/L Normal 21.0-32.0 [facility] Comment on above: Performed By: #### C VDTBH #### [facility] [address] [place] [address] Dr. Ember Teague Creatinine [Mass/Vol] 2.03 mg/dL Critically high 0.55-1.02 [facility] Comment on above: Performed By: #### C VDTBH #### [facility] [address] [address] [address] Ember Teague EGFR-AF DUTCH 29 mL/min/1.73m2 Critically low >=60 [facility] Comment on above: Performed By: #### C VDTBH #### [facility] [address] [address] [address] Ember Teague EGFR-NON AF DUTCH 24 mL/min/1.73m2 Critically low >=60 [facility] Comment on above: Performed By: #### C VDTBH #### [facility] [address] [address] [address] Ember Teague Glucose [Mass/Vol] 154 mg/dL Critically high 74-106 [facility] Comment on above: Performed By: #### C VDTBH #### [facility] [address] [place] [address] Dr. Ember Teague Potassium [Moles/Vol] 4.8 mmol/L Normal 3.5-5.1 [facility] Comment on above: Performed By: #### C VDTBH #### [facility] [address] [address] [address] Ember Teague Sodium [Moles/Vol] 139 mmol/L Normal 136-145 [facility] Comment on above: Performed By: #### C VDTBH #### [facility] [address] [place] [address] Dr. Ember Teague Urea nitrogen [Mass/Vol] 43.0 mg/dL Critically high 7.0-18.0 [facility] Comment on above: Performed By: #### C VDTBH #### [facility] [address] [place] [address] Dr. Ember Teague Urea nitrogen/Creatinine [Mass ratio] 21.2 mg/mg Normal [facility] Comment on above: Performed By: #### C VDTBH #### [facility] [address] [address] [address] Ember Teague CULTURE SPUTUMon 10-24-2022 CULTURE SPUTUM Culture Observations : Beta lactamase positive Isolate 1 Haemophilus influenzae Moderate growth of Normal [facility] Comment on above: Performed By: #### R ENAL #### [facility] [address] [address] [address] Ember Teague SPUTUM GRAM STAINon 10-24-19 COMMENTS Normal [facility] Comment on above: Performed By: #### R ENAL #### [facility] [address] [address] [address] Ember Teague DIPHTHEROIDS Normal [facility] Comment on above: Performed By: #### R ENAL #### [facility] [address] [address] [address] Ember Teague EPITHELIALS >25 Normal [facility] Comment on above: Performed By: #### R ENAL #### [facility] [address] [address] [address] Ember Teague FUNGAL ELEMENTS Normal [facility] Comment on above: Performed By: #### R ENAL #### [facility] [address] [address] [address] Ember Teague [facility] Comment on above: Performed By: #### R ENAL #### [facility] [address] [address] [address] Ember LOCKWOOD NEG DIPPLOCOCCI FEW Normal [facility] Comment on above: Performed By: #### R ENAL #### [facility] [address] [address] [address] Ember Teague GRAM POS BACILLI FEW Normal [facility] Comment on above: Performed By: #### R ENAL #### [facility] [address] [address] [address] Ember Teague GRAM POSITIVE COCCI MANY Normal [facility] Comment on above: Performed By: #### R ENAL #### [facility] [address] [address] [address] Ember Taegue WBC (Bld) [#/Vol] 10*3/uL Normal [facility] Comment on above: Performed By: #### R ENAL #### [facility] [address] [place] [address] Dr. Ember Teague XR CHEST 2 Von [...] by: ANGELINA BRISENO Date: 2022-10-24 16:22 Normal [facility] FERRITINon 09-18-2022 Ferritin [Mass/Vol] 612.0 ng/mL Critically high 8.0-252.0 [facility] Comment on above: Performed By: #### F ERR, FETIBC #### [facility] [address] [place] [address] Dr. Ember Teague HEMOGRAM AND PLATELon 2021 Hematocrit (Bld) [Volume fraction] 28.1 % Critically low 36.0-48.0 [facility] Comment on above: Performed By: #### C BC #### [facility] [address] [address] [address] Ember Teague Hemoglobin (Bld) [Mass/Vol] 9.7 g/dL Critically low 12.0-16.0 [facility] Comment on above: Performed By: #### C BC #### [facility] [address] [address] [address] Ember Teague MCH (RBC) [Entitic mass] 31.3 pg Normal 26.7-34.0 [facility] Comment on above: Performed By: #### C BC #### [facility] [address] [address] [address] Ember Teague MCHC (RBC) [Mass/Vol] 34.5 g/dL Normal 29.9-35.2 [facility] Comment on above: Performed By: #### C BC #### [facility] [address] [address] [address] Ember eTague MCV (RBC) [Entitic vol] 90.6 fL Normal 81.0-99.0 [facility] Comment on above: Performed By: #### C BC #### [facility] [address] [place] [address] Dr. Ember Teague PLT 183 103/ul Normal 150-450 [facility] Comment on above: Performed By: #### C BC #### [facility] [address] [address] [address] Ember Teague RBC 3.10 106/ul Critically low 4.20-5.40 [facility] Comment on above: Performed By: #### C BC #### [facility] [address] [address] [address] Ember Teague WBC 7.2 103/ul Normal 4.0-11.0 [facility] Comment on above: Performed By: #### C BC #### [facility] [address] [place] [address] Dr. Ember Teague IRON AND TIBCon 09-18-2022 % SATURATION 36.0 % Normal [facility] Comment on above: Performed By: #### F ERR, FETIBC #### [facility] [address] [place] [address] Dr. Ember Teague Iron [Mass/Vol] 77.0 ug/dL Normal 50.0-170.0 [facility] Comment on above: Performed By: #### F ERR, FETIBC #### [facility] [address] [address] [address] Ember Teague TIBC DIRECT 214.0 ug/dL Critically low 250.0-450.0 [facility] Comment on above: Performed By: #### F ERR, FETIBC #### [facility] [address] [place] [address] Dr. Ember Teague RENAL FUNCTION PANELon 09-18 Albumin [Mass/Vol] 3.7 g/dL Normal 3.4-5.0 [facility] Comment on above: Performed By: #### R ENAL #### [facility] [address] [place] [address] Dr. Ember Teague Calcium [Mass/Vol] 9.5 mg/dL Normal 8.5-10.1 [facility] Comment on above: Performed By: #### R ENAL #### [facility] [address] [place] [address] Dr. Ember Teague Chloride [Moles/Vol] 103 mmol/L Normal 98-107 [facility] Comment on above: Performed By: #### R ENAL #### [facility] [address] [place] [address] Dr. Ember Teague CO2 [Moles/Vol] 21.1 mmol/L Normal 21.0-32.0 [facility] Comment on above: Performed By: #### R ENAL #### [facility] [address] [place] [address] Dr. Ember Teague Creatinine [Mass/Vol] 1.85 mg/dL Critically high 0.55-1.02 [facility] Comment on above: Performed By: #### R ENAL #### [facility] [address] [place] [address] Dr. Ember Teague EGFR-AF DUTCH 32 mL/min/1.73m2 Critically low >=60 [facility] Comment on above: Performed By: #### R ENAL #### [facility] [address] [place] [address] Dr. Ember Teague EGFR-NON AF DUTCH 26 mL/min/1.73m2 Critically low >=60 [facility] Comment on above: Performed By: #### R ENAL #### [facility] [address] [place] [address] Dr. Ember Teague Glucose [Mass/Vol] 183 mg/dL Critically high 74-106 [facility] Comment on above: Performed By: #### R ENAL #### [facility] [address] [place] [address] Dr. Ember Teague Phosphate [Mass/Vol] 3.7 mg/dL Normal 2.6-4.7 [facility] Comment on above: Performed By: #### R ENAL #### [facility] [address] [place] [address] Dr. Ember Teague Potassium [Moles/Vol] 4.9 mmol/L Normal 3.5-5.1 [facility] Comment on above: Performed By: #### R ENAL #### [facility] [address] [place] [address] Dr. Ember Teague Sodium [Moles/Vol] 138 mmol/L Normal 136-145 [facility] Comment on above: Performed By: #### R ENAL #### [facility] [address] [place] [address] Dr. Ember Teague Urea nitrogen [Mass/Vol] 40.0 mg/dL Critically high 7.0-18.0 [facility] Comment on above: Performed By: #### R ENAL #### [facility] [address] [place] [address] Dr. Ember Teague CULTURE URINEon 09-15-2022 CULTURE [...] F Trimethoprim/Sulfamet hoxazole <=20 S F Normal [facility] Comment on above: Performed By: #### R ENAL #### [facility] [address] [place] [address] Dr. Ember Teague BNPon 09-11-2022 Natriuretic peptide B (Bld) [Mass/Vol] 408.0 pg/mL Normal <=1,800.0 [facility] Comment on above: Performed By: #### P THINT #### [facility] [address] [place] [address] Dr. Ember Teague CBC AUTO DIFFon 09-11-2022 BASO # 0.0 103/ul Normal 0.0-0.1 [facility] Comment on above: Performed By: #### C BC #### [facility] [address] [place] [address] Dr. Ember Teague Basophils/100 WBC (Bld) 0.3 % Normal 0.2-2.0 [facility] Comment on above: Performed By: #### C BC #### [facility] [address] [place] [address] Dr. Ember Teague EO # 0.1 103/ul Normal 0.0-0.7 [facility] Comment on above: Performed By: #### C BC #### [facility] [address] [place] [address] Dr. Ember Teague Eosinophils/100 WBC (Bld) 1.9 % Normal 0.9-7.0 [facility] Comment on above: Performed By: #### C BC #### [facility] [address] [place] [address] Dr. Ember Teague Erythrocyte distribution width (RBC) [Ratio] 15.2 % Critically high 11.0-15.0 [facility] Comment on above: Performed By: #### C BC #### [facility] [address] [place] [address] Dr. Ember Teague Hematocrit (Bld) [Volume fraction] 26.6 % Critically low 36.0-48.0 [facility] Comment on above: Performed By: #### C BC #### [facility] [address] [place] [address] Dr. Ember Teague Hemoglobin (Bld) [Mass/Vol] 9.0 g/dL Critically low 12.0-16.0 [facility] Comment on above: Performed By: #### C BC #### [facility] [address] [place] [address] Dr. Ember Teague IG # 0.02 10e3/ul Normal 0.00-0.03 [facility] Comment on above: Performed By: #### C BC #### [facility] [address] [place] [address] Dr. Ember Teague IG % 0.3 % Normal 0.0-0.5 [facility] Comment on above: Performed By: #### C BC #### [facility] [address] [place] [address] Dr. Ember Teague LYMPH # 1.9 103/ul Normal 1.2-3.8 [facility] Comment on above: Performed By: #### C BC #### [facility] [address] [place] [address] Dr. Ember Teague Lymphocytes/100 WBC (Bld) 32.4 % Normal 20.5-60.0 [facility] Comment on above: Performed By: #### C BC #### [facility] [address] [place] [address] Dr. Ember Teague MANUAL DIFF REQ NO Normal [facility] Comment on above: Performed By: #### C BC #### [facility] [address] [place] [address] Dr. Ember Teague MCH (RBC) [Entitic mass] 31.1 pg Normal 26.7-34.0 [facility] Comment on above: Performed By: #### C BC #### [facility] [address] [place] [address] Dr. Ember Teague MCHC (RBC) [Mass/Vol] 33.8 g/dL Normal 29.9-35.2 [facility] Comment on above: Performed By: #### C BC #### [facility] [address] [place] [address] Dr. Ember Teague MCV (RBC) [Entitic vol] 92.0 fL Normal 81.0-99.0 [facility] Comment on above: Performed By: #### C BC #### [facility] [address] [place] [address] Dr. Ember Teague MONO # 0.6 103/ul Normal 0.3-0.8 [facility] Comment on above: Performed By: #### C BC #### [facility] [address] [place] [address] Dr. Ember Teague Monocytes/100 WBC (Bld) 10.0 % Normal 1.7-12.0 [facility] Comment on above: Performed By: #### C BC #### [facility] [address] [address] [address] Ember Teague NEUT # 3.2 103/ul Normal 1.4-6.5 [facility] Comment on above: Performed By: #### C BC #### [facility] [address] [address] [address] Ember Teague Neutrophils/100 WBC (Bld) 55.1 % Normal 43.0-75.0 [facility] Comment on above: Performed By: #### C BC #### [facility] [address] [address] [address] Ember Teague Platelet mean volume (Bld) [Entitic vol] 9.4 fL Critically low 9.5-13.5 [facility] Comment on above: Performed By: #### C BC #### [facility] [address] [place] [address] Dr. Ember Teague PLT 196 103/ul Normal 150-450 [facility] Comment on above: Performed By: #### C BC #### [facility] [address] [place] [address] Dr. Ember Teague RBC 2.89 106/ul Critically low 4.20-5.40 [facility] Comment on above: Performed By: #### C BC #### [facility] [address] [place] [address] Dr. Ember Teague WBC 5.8 103/ul Normal 4.0-11.0 [facility] Comment on above: Performed By: #### C BC #### [facility] [address] [place] [address] Dr. Ember Teague PROF 14(COMP METB)on 022 Albumin [Mass/Vol] 3.7 g/dL Normal 3.4-5.0 [facility] Comment on above: Performed By: #### P THINT #### [facility] [address] [place] [address] Dr. Ember Teague Albumin/Globulin [Mass ratio] 1.0 {ratio} Normal [facility] Comment on above: Performed By: #### P THINT #### [facility] [address] [address] [address] Ember Teague ALP [Catalytic activity/Vol] 79 U/L Normal 46-116 [facility] Comment on above: Performed By: #### P THINT #### [facility] [address] [place] [address] Dr. Ember Teague ALT [Catalytic activity/Vol] 24 U/L Normal 14-59 [facility] Comment on above: Performed By: #### P THINT #### [facility] [address] [address] [address] Ember Teague Anion gap [Moles/Vol] 12.8 mmol/L Normal [facility] Comment on above: Performed By: #### P THINT #### [facility] [address] [place] [address] Dr. Ember Teague AST [Catalytic activity/Vol] 17 U/L Normal 15-37 [facility] Comment on above: Performed By: #### P THINT #### [facility] [address] [address] [address] Ember Teague Bilirubin [Mass/Vol] 0.5 mg/dL Normal 0.2-1.0 [facility] Comment on above: Performed By: #### P THINT #### [facility] [address] [place] [address] Dr. Ember Teague Calcium [Mass/Vol] 9.4 mg/dL Normal 8.5-10.1 [facility] Comment on above: Performed By: #### P THINT #### [facility] [address] [place] [address] Dr. Ember Teague Chloride [Moles/Vol] 101 mmol/L Normal 98-107 [facility] Comment on above: Performed By: #### P THINT #### [facility] [address] [address] [address] Ember Teague CO2 [Moles/Vol] 24.3 mmol/L Normal 21.0-32.0 [facility] Comment on above: Performed By: #### P THINT #### [facility] [address] [place] [address] Dr. Ember Teague Creatinine [Mass/Vol] 2.84 mg/dL Critically high 0.55-1.02 [facility] Comment on above: Performed By: #### P THINT #### [facility] [address] [address] [address] Ember Teague EGFR-AF DUTCH 20 mL/min/1.73m2 Critically low >=60 [facility] Comment on above: Performed By: #### P THINT #### [facility] [address] [address] [address] Ember Teague EGFR-NON AF DUTCH 16 mL/min/1.73m2 Critically low >=60 [facility] Comment on above: Performed By: #### P THINT #### [facility] [address] [address] [address] Ember Teague Globulin (S) [Mass/Vol] 3.7 g/dL Normal [facility] Comment on above: Performed By: #### P THINT #### [facility] [address] [address] [address] Ember Teague Glucose [Mass/Vol] 174 mg/dL Critically high 74-106 [facility] Comment on above: Performed By: #### P THINT #### [facility] [address] [address] [address] Ember Teague Potassium [Moles/Vol] 5.1 mmol/L Normal 3.5-5.1 [facility] Comment on above: Performed By: #### P THINT #### [facility] [address] [address] [address] Ember Teague Protein [Mass/Vol] 7.4 g/dL Normal 6.4-8.2 [facility] Comment on above: Performed By: #### P THINT #### [facility] [address] [address] [address] Ember Teague Sodium [Moles/Vol] 133 mmol/L Critically low 136-[address] [facility] Comment on above: Performed By: #### P THINT #### [facility] [address] [address] [address] Ember Teague Urea nitrogen [Mass/Vol] 68.0 mg/dL Critically high 7.0-18.0 [facility] Comment on above: Performed By: #### P THINT #### [facility] [address] [place] [address] Dr. Ember Teague Urea nitrogen/Creatinine [Mass ratio] 23.9 mg/mg Normal [facility] Comment on above: Performed By: #### P THINT #### [facility] [address] [place] [address] Dr. Ember Teague TROPONIN, HIGH SENSITIVITYon 09-11-2022 HSTROP 9.1 pg/mL Normal 4.0-51.3 [facility] Comment on above: Result Comment: CUT- OFF POINTS HAVE BEEN ESTABLISHED BASED ON THE FOURTH UNIVERSAL DEFINITIONS OF MYOCARDIAL INFARCTION. THE UPPER REFERENCE LIMIT (URL) OF TROPONIN, DEFINED THE 99TH PERCENTILE OF cTnI DISTRIBUTION IN A REFERENCE POPULATION, HAS BEEN CONFIRMED THE DECISION THRESHOLD FOR [place] DIAGNOSIS. Performed By: #### P THINT #### [facility] [address] [place] [address] Dr. Ember Teague UA RANDOM W/MICROSCOPICon BACTERIA NONE SEEN Normal NONE SEEN [facility] Comment on above: Performed By: #### C VDTBH #### [facility] [address] [place] [address] Dr. Ember Teague Bilirubin Ql (U) Negative Normal NEGATIVE [facility] Comment on above: Performed By: #### C VDTBH #### [facility] [address] [place] [address] Dr. Ember Teague CAST NONE SEEN Normal NONE SEEN [facility] Comment on above: Performed By: #### C VDTBH #### [facility] [address] [place] [address] Dr. Ember Teague Clarity (U) CLEAR Normal CLEAR [facility] Comment on above: Performed By: #### C VDTBH #### [facility] [address] [place] [address] Dr. Ember Teague Color (U) LT. YELLOW Normal YELLOW [facility] Comment on above: Performed By: #### C VDTBH #### [facility] [address] [place] [address] Dr. Ember Teague Crystals LM Nom (Urine sed) NONE SEEN Normal NONE SEEN [facility] Comment on above: Performed By: #### C VDTBH #### [facility] [address] [place] [address] Dr. Ember Teague Epithelial cells LM Ql (Urine sed) FEW Abnormal NONE SEEN /RARE [facility] Comment on above: Performed By: #### C VDTBH #### [facility] [address] [place] [address] Dr. Ember Teague Glucose Ql (U) Negative Normal NEGATIVE [facility] Comment on above: Performed By: #### C VDTBH #### [facility] [address] [place] [address] Dr. Ember Teague Hemoglobin Ql (U) Negative Normal NEGATIVE [facility] Comment on above: Performed By: #### C VDTBH #### [facility] [address] [place] [address] Dr. Ember Teague Ketones Ql (U) Negative Normal NEGATIVE [facility] Comment on above: Performed By: #### C VDTBH #### [facility] [address] [place] [address] Dr. Ember Teague LEUKOCYTES Negative Normal NEGATIVE [facility] Comment on above: Performed By: #### C VDTBH #### [facility] [address] [place] [address] Dr. Ember Teague MUCOUS NONE SEEN Normal NONE SEEN [facility] Comment on above: Performed By: #### C VDTBH #### [facility] [address] [place] [address] Dr. Ember Teague Nitrite Ql (U) Negative Normal NEGATIVE [facility] Comment on above: Performed By: #### C VDTBH #### [facility] [address] [place] [address] Dr. Ember Teague pH (U) 5.5 [pH] Normal 5-9 [facility] Comment on above: Performed By: #### C VDTBH #### [facility] [address] [place] [address] Dr. Ember Teague RBC NONE SEEN Abnormal 0-2 [facility] Comment on above: Performed By: #### C VDTBH #### [facility] [address] [place] [address] Dr. Ember Teague SPEC GRAVITY 1.010 Normal 1.005-<=1.025 [facility] Comment on above: Performed By: #### C VDTBH #### [facility] [address] [place] [address] Dr. Ember Teague UA PROTEIN Negative Normal NEGATIVE/ TRACE [facility] Comment on above: Performed By: #### C VDTBH #### [facility] [address] [place] [address] Dr. Ember Teague Urobilinogen Qn (U) 0.2 {Esau'U}/dL Normal 0.2 - 1. 0 [facility] Comment on above: Performed By: #### C VDTBH #### [facility] [address] [place] [address] Dr. Ember Teague WBC NONE SEEN Normal NONE SEEN [facility] Comment on above: Performed By: #### C VDTBH #### [facility] [address] [place] [address] Dr. Ember Teague CBC AUTO DIFFon 08-13-2022 BASO # 0.0 103/ul Normal 0.0-0.1 [facility] Comment on above: Performed By: #### C BC #### [facility] [address] [place] [address] Dr. Ember Teague Basophils/100 WBC (Bld) 0.3 % Normal 0.2-2.0 [facility] Comment on above: Performed By: #### C BC #### [facility] [address] [place] [address] Dr. Ember Teague EO # 0.2 103/ul Normal 0.0-0.7 [facility] Comment on above: Performed By: #### C BC #### [facility] [address] [place] [address] Dr. Ember Teague Eosinophils/100 WBC (Bld) 3.7 % Normal 0.9-7.0 [facility] Comment on above: Performed By: #### C BC #### [facility] [address] [place] [address] Dr. Ember Teague Erythrocyte distribution width (RBC) [Ratio] 15.0 % Normal 11.0-15.0 [facility] Comment on above: Performed By: #### C BC #### [facility] [address] [place] [address] Dr. Ember Teague Hematocrit (Bld) [Volume fraction] 27.9 % Critically low 36.0-48.0 [facility] Comment on above: Performed By: #### C BC #### [facility] [address] [place] [address] Dr. Ember Teague Hemoglobin (Bld) [Mass/Vol] 9.7 g/dL Critically low 12.0-16.0 [facility] Comment on above: Performed By: #### C BC #### [facility] [address] [place] [address] Dr. Ember Teague IG # 0.01 10e3/ul Normal 0.00-0.03 [facility] Comment on above: Performed By: #### C BC #### [facility] [address] [place] [address] Dr. Ember Teague IG % 0.2 % Normal 0.0-0.5 [facility] Comment on above: Performed By: #### C BC #### [facility] [address] [place] [address] Dr. Ember Teague LYMPH # 1.9 103/ul Normal 1.2-3.8 [facility] Comment on above: Performed By: #### C BC #### [facility] [address] [place] [address] Dr. Ember Teague Lymphocytes/100 WBC (Bld) 32.2 % Normal 20.5-60.0 [facility] Comment on above: Performed By: #### C BC #### [facility] [address] [place] [address] Dr. Ember Teague MANUAL DIFF REQ NO Normal [facility] Comment on above: Performed By: #### C BC #### [facility] [address] [place] [address] Dr. Ember Teague MCH (RBC) [Entitic mass] 31.4 pg Normal 26.7-34.0 [facility] Comment on above: Performed By: #### C BC #### [facility] [address] [place] [address] Dr. Ember Teague MCHC (RBC) [Mass/Vol] 34.8 g/dL Normal 29.9-35.2 [facility] Comment on above: Performed By: #### C BC #### [facility] [address] [place] [address] Dr. Ember Teague MCV (RBC) [Entitic vol] 90.3 fL Normal 81.0-99.0 [facility] Comment on above: Performed By: #### C BC #### [facility] [address] [place] [address] Dr. Ember Teague MONO # 0.6 103/ul Normal 0.3-0.8 [facility] Comment on above: Performed By: #### C BC #### [facility] [address] [place] [address] Dr. Ember Teague Monocytes/100 WBC (Bld) 9.8 % Normal 1.7-12.0 [facility] Comment on above: Performed By: #### C BC #### [facility] [address] [place] [address] Dr. Ember Teague NEUT # 3.2 103/ul Normal 1.4-6.5 [facility] Comment on above: Performed By: #### C BC #### [facility] [address] [place] [address] Dr. Ember Teague Neutrophils/100 WBC (Bld) 53.8 % Normal 43.0-75.0 [facility] Comment on above: Performed By: #### C BC #### [facility] [address] [place] [address] Dr. Ember Teague Platelet mean volume (Bld) [Entitic vol] 10.0 fL Normal 9.5-13.5 [facility] Comment on above: Performed By: #### C BC #### [facility] [address] [place] [address] Dr. Ember Teague PLT 194 103/ul Normal 150-450 [facility] Comment on above: Performed By: #### C BC #### [facility] [address] [place] [address] Dr. Ember Teague RBC 3.09 106/ul Critically low 4.20-5.40 [facility] Comment on above: Performed By: #### C BC #### [facility] [address] [place] [address] Dr. Ember Teague WBC 6.0 103/ul Normal 4.0-11.0 [facility] Comment on above: Performed By: #### C BC #### [facility] [address] [place] [address] Dr. Ember Teague PTH INTACTon 06-26-2022 PTH, Intact 39 pg/mL Normal 15-65 [facility] Comment on above: Performed By: #### P THINT #### [facility] [address] [place] [address] Dr. Ember Teague CBC AUTO DIFFon 06-25-2022 BASO # 0.1 103/ul Normal 0.0-0.1 [facility] Comment on above: Performed By: #### C VDTBH #### [facility] [address] [place] [address] Dr. Ember Teague Basophils/100 WBC (Bld) 0.6 % Normal 0.2-2.0 [facility] Comment on above: Performed By: #### C VDTBH #### [facility] [address] [place] [address] Dr. Ember Teague EO # 0.2 103/ul Normal 0.0-0.7 [facility] Comment on above: Performed By: #### C VDTBH #### [facility] [address] [place] [address] Dr. Ember Teague Eosinophils/100 WBC (Bld) 3.0 % Normal 0.9-7.0 [facility] Comment on above: Performed By: #### C VDTBH #### [facility] [address] [place] [address] Dr. Ember Teague Erythrocyte distribution width (RBC) [Ratio] 14.2 % Normal 11.0-15.0 [facility] Comment on above: Performed By: #### C VDTBH #### [facility] [address] [place] [address] Dr. Ember Teague Hematocrit (Bld) [Volume fraction] 30.9 % Critically low 36.0-48.0 [facility] Comment on above: Performed By: #### C VDTBH #### [facility] [address] [place] [address] Dr. Ember Teague Hemoglobin (Bld) [Mass/Vol] 10.6 g/dL Critically low 12.0-16.0 [facility] Comment on above: Performed By: #### C VDTBH #### [facility] [address] [place] [address] Dr. Ember Teague IG # 0.04 10e3/ul Critically high 0.00-0.03 [facility] Comment on above: Performed By: #### C VDTBH #### [facility] [address] [place] [address] Dr. Ember Teague IG % 0.5 % Normal 0.0-0.5 [facility] Comment on above: Performed By: #### C VDTBH #### [facility] [address] [place] [address] Dr. Ember Teague LYMPH # 2.2 103/ul Normal 1.2-3.8 [facility] Comment on above: Performed By: #### C VDTBH #### [facility] [address] [place] [address] Dr. Ember Teague Lymphocytes/100 WBC (Bld) 27.0 % Normal 20.5-60.0 [facility] Comment on above: Performed By: #### C VDTBH #### [facility] [address] [place] [address] Dr. Ember Teague MANUAL DIFF REQ NO Normal [facility] Comment on above: Performed By: #### C VDTBH #### [facility] [address] [place] [address] Dr. Ember Teague MCH (RBC) [Entitic mass] 31.2 pg Normal 26.7-34.0 [facility] Comment on above: Performed By: #### C VDTBH #### [facility] [address] [place] [address] Dr. Ember Teague MCHC (RBC) [Mass/Vol] 34.3 g/dL Normal 29.9-35.2 [facility] Comment on above: Performed By: #### C VDTBH #### [facility] [address] [place] [address] Dr. Ember Teague MCV (RBC) [Entitic vol] 90.9 fL Normal 81.0-99.0 [facility] Comment on above: Performed By: #### C VDTBH #### [facility] [address] [place] [address] Dr. Ember Teague MONO # 0.7 103/ul Normal 0.3-0.8 [facility] Comment on above: Performed By: #### C VDTBH #### [facility] [address] [place] [address] Dr. Ember Teague Monocytes/100 WBC (Bld) 9.2 % Normal 1.7-12.0 [facility] Comment on above: Performed By: #### C VDTBH #### [facility] [address] [place] [address] Dr. Ember Teague NEUT # 4.8 103/ul Normal 1.4-6.5 [facility] Comment on above: Performed By: #### C VDTBH #### [facility] [address] [place] [address] Dr. Ember Teague Neutrophils/100 WBC (Bld) 59.7 % Normal 43.0-75.0 [facility] Comment on above: Performed By: #### C VDTBH #### [facility] [address] [address] [address] Ember Teague Platelet mean volume (Bld) [Entitic vol] 9.3 fL Critically low 9.5-13.5 [facility] Comment on above: Performed By: #### C VDTBH #### [facility] [address] [address] [address] Ember Teague PLT 227 103/ul Normal 150-450 [facility] Comment on above: Performed By: #### C VDTBH #### [facility] [address] [address] [address] Ember Teague RBC 3.40 106/ul Critically low 4.20-5.40 [facility] Comment on above: Performed By: #### C VDTBH #### [facility] [address] [address] [address] Ember Teague WBC 8.0 103/ul Normal 4.0-11.0 [facility] Comment on above: Performed By: #### C VDTBH #### [facility] [address] [place] [address] Dr. Ember Teague MRI LSPINE WO CONon [...] YANET HUERTA Date: 2022-06-25 08:45 Normal [facility] RENAL FUNCTION PANELon 06-25 Albumin [Mass/Vol] 3.9 g/dL Normal 3.4-5.0 [facility] Comment on above: Performed By: #### P THINT #### [facility] [address] [address] [address] Ember Teague Calcium [Mass/Vol] 9.5 mg/dL Normal 8.5-10.1 [facility] Comment on above: Performed By: #### P THINT #### [facility] [address] [address] [address] Ember Teague Chloride [Moles/Vol] 102 mmol/L Normal 98-107 [facility] Comment on above: Performed By: #### P THINT #### [facility] [address] [address] [address] Ember Teague CO2 [Moles/Vol] 23.8 mmol/L Normal 21.0-32.0 [facility] Comment on above: Performed By: #### P THINT #### [facility] [address] [address] [address] Ember Teague Creatinine [Mass/Vol] 1.75 mg/dL Critically high 0.55-1.02 [facility] Comment on above: Performed By: #### P THINT #### [facility] [address] [address] [address] Ember Teague EGFR-AF DUTCH 34 mL/min/1.73m2 Critically low >=60 [facility] Comment on above: Performed By: #### P THINT #### [facility] [address] [address] [address] Ember Teague EGFR-NON AF DUTCH 28 mL/min/1.73m2 Critically low >=60 [facility] Comment on above: Performed By: #### P THINT #### [facility] [address] [address] [address] Ember Teague Glucose [Mass/Vol] 199 mg/dL Critically high 74-106 [facility] Comment on above: Performed By: #### P THINT #### [facility] [address] [address] [address] Ember Teague Phosphate [Mass/Vol] 4.3 mg/dL Normal 2.6-4.7 [facility] Comment on above: Performed By: #### P THINT #### [facility] [address] [address] [address] Ember Teague Potassium [Moles/Vol] 4.9 mmol/L Normal 3.5-5.1 [facility] Comment on above: Performed By: #### P THINT #### [facility] [address] [address] [address] Ember Teague Sodium [Moles/Vol] 135 mmol/L Critically low 136-[address] [facility] Comment on above: Performed By: #### P THINT #### [facility] [address] [address] [address] Ember Teague Urea nitrogen [Mass/Vol] 34.0 mg/dL Critically high 7.0-18.0 [facility] Comment on above: Performed By: #### P THINT #### [facility] [address] [address] [address] Ember Teague VITAMIN D 25 OHon 06-25-2022 VIT D 25-OH 40.6 ng/mL Normal [facility] Comment on above: Performed By: #### P THINT #### [facility] [address] [address] [address] Ember Teague VIT D RANGES SEE BELOW Normal [facility] Comment on above: Result Comment: <20 ng/mL Vit D deficient 20 - <30 ng/mL Vit D insufficient 30 - 100 ng/mL Vit D sufficient >100 ng/mL Potential Toxicity Performed By: #### P THINT #### [facility] [address] [place] [id number] Ember Teague Covid-19 PCR ([facility])on 06-07 SARS-CoV-2 (COVID-19) RNA ALEXX+probe Ql (Unsp spec) Not detected Normal NOT DETECTED [facility] Comment on above: Result Comment: This test is not yet approved or cleared by the [place] FDA. When there are no FDA-approved or cleared tests available, and other criteria are met, FDA can make tests available under an emergency access mechanism called an Emergency Use Authorization (EUA). The EUA for this test is supported by the [place] of Health and Human Service's (HHS's) declaration [...] consistent with SARS-CoV-2. Performed By: #### [facility] #### [facility] [address] [place] [address] LSPINE WO CONon [...] by: YANET HUERTA Date: 2022-06-01 18:02 Normal [facility] XR LSPINE MIN 4 VIEWSon 05-07 [...] YANET HUERTA Date: 2022-05-21 15:25 Normal [facility] PTH INTACTon 05-03-2022 PTH, Intact 60 pg/mL Normal 15-65 [facility] Comment on above: Performed By: #### [facility] #### [facility] [address] [place] [address] Dr. Ember Teague VIT D 25-OH LABCORPon 2021 Vitamin D, 25-Hydroxy 26.1 ng/mL Critically low 30.0-100.0 [facility] Comment on above: Result Comment: Sara min D deficiency has been defined by the [place] of [employer] and an Endocrine Society practice guideline as a level of serum 25-OH vitamin D less than 20 ng/mL (1,2). The Endocrine Society went on to further define vitamin D insufficiency as a level between 21 and 29 ng/mL (2). 1. IOM ([place] of [employer]). 2010. Dietary reference intakes for calcium and D. [place]: The National Academies Press. 2. Sherice MF, Wendy WILSON, Huan ZHONG, et al. Evaluation, treatment, and prevention of vitamin D deficiency: an Endocrine Society clinical practice guideline. JCEM. 2010; 96(7):1911-30. Performed By: #### R ENAL #### [facility] [address] [place] [address] Dr. Ember Teague FERRITINon 05-02-2022 Ferritin [Mass/Vol] 590.0 ng/mL Critically high 8.0-252.0 [facility] Comment on above: Performed By: #### R ENAL #### [facility] [address] [place] [address] Dr. Ember Teague HEMOGRAM AND PLATELon 2021 Hematocrit (Bld) [Volume fraction] 28.4 % Critically low 36.0-48.0 [facility] Comment on above: Performed By: #### C V[facility] #### [facility] [address] [place] [address] Dr. Ember Teauge Hemoglobin (Bld) [Mass/Vol] 9.6 g/dL Critically low 12.0-16.0 [facility] Comment on above: Performed By: #### C VDT[facility] #### [facility] [address] [place] [address] Dr. Ember Teague MCH (RBC) [Entitic mass] 31.0 pg Normal 26.7-34.0 [facility] Comment on above: Performed By: #### C [facility] #### [facility] [address] [place] [address] Dr. Ember Teague MCHC (RBC) [Mass/Vol] 33.8 g/dL Normal 29.9-35.2 [facility] Comment on above: Performed By: #### C VDT[facility] #### [facility] [address] [place] [address] Dr. Ember Teague MCV (RBC) [Entitic vol] 91.6 fL Normal 81.0-99.0 [facility] Comment on above: Performed By: #### C V[facility] #### [facility] [address] [place] [address] Dr. Ember Teague PLT 189 103/ul Normal 150-450 [facility] Comment on above: Performed By: #### C VDT[facility] #### [facility] [address] [place] [address] Dr. Ember Teague RBC 3.10 106/ul Critically low 4.20-5.40 [facility] Comment on above: Performed By: #### C VDTBH #### [facility] [address] [place] [address] Dr. Ember Teague WBC 6.2 103/ul Normal 4.0-11.0 [facility] Comment on above: Performed By: #### C VDTBH #### [facility] [address] [place] [address] Dr. Ember Teague IRON AND TIBCon 05-02-2022 % SATURATION 34.3 % Normal [facility] Comment on above: Performed By: #### R ENAL #### [facility] [address] [place] [address] Dr. Ember Teague Iron [Mass/Vol] 69.0 ug/dL Normal 50.0-170.0 [facility] Comment on above: Performed By: #### R ENAL #### [facility] [address] [place] [address] Dr. Ember Teague TIBC DIRECT 201.0 ug/dL Critically low 250.0-450.0 [facility] Comment on above: Performed By: #### R ENAL #### [facility] [address] [place] [address] Dr. Ember Teague MAGNESIUMon 05-02-2022 Magnesium [Mass/Vol] 1.7 mg/dL Critically low 1.8-2.4 [facility] Comment on above: Performed By: #### C VDT[facility] #### [facility] [address] [place] [address] Dr. Ember Teague RENAL FUNCTION PANELon 05-02 Albumin [Mass/Vol] 3.6 g/dL Normal 3.4-5.0 [facility] Comment on above: Performed By: #### C VDT[facility] #### [facility] [address] [place] [address] Dr. Ember Teague Calcium [Mass/Vol] 9.2 mg/dL Normal 8.5-10.1 [facility] Comment on above: Performed By: #### C VDTBH #### [facility] [address] [place] [address] Dr. Ember Teague Chloride [Moles/Vol] 107 mmol/L Normal 98-107 [facility] Comment on above: Performed By: #### C VDT[facility] #### [facility] [address] [place] [address] Dr. Ember Teague CO2 [Moles/Vol] 21.2 mmol/L Normal 21.0-32.0 [facility] Comment on above: Performed By: #### C VDTBH #### [facility] [address] [place] [address] Dr. Ember Teague Creatinine [Mass/Vol] 1.75 mg/dL Critically high 0.55-1.02 [facility] Comment on above: Performed By: #### C VDTBH #### [facility] [address] [place] [address] Dr. Ember Teague EGFR-AF DUTCH 34 mL/min/1.73m2 Critically low >=60 [facility] Comment on above: Performed By: #### C VDTBH #### [facility] [address] [place] [address] Dr. Ember Teague EGFR-NON AF DUTCH 28 mL/min/1.73m2 Critically low >=60 [facility] Comment on above: Performed By: #### C VDT[facility] #### [facility] [address] [place] [address] Dr. Ember Tegaue Glucose [Mass/Vol] 193 mg/dL Critically high 74-106 [facility] Comment on above: Performed By: #### C VDT[facility] #### [facility] [address] [place] [address] Dr. Ember Teague Phosphate [Mass/Vol] 4.2 mg/dL Normal 2.6-4.7 [facility] Comment on above: Performed By: #### C VDT[facility] #### [facility] [address] [place] [address] Dr. Ember Teague Potassium [Moles/Vol] 5.1 mmol/L Normal 3.5-5.1 [facility] Comment on above: Performed By: #### C VDT[facility] #### [facility] [address] [place] [address] Dr. Ember Teague Sodium [Moles/Vol] 139 mmol/L Normal 136-145 [facility] Comment on above: Performed By: #### C VDT[facility] #### [facility] [address] [place] [address] Dr. Ember Teague Urea nitrogen [Mass/Vol] 34.0 mg/dL Critically high 7.0-18.0 [facility] Comment on above: Performed By: #### C VDT[facility] #### [facility] [address] [place] [address] Dr. Ember Teague UA RANDOM W/MICROSCOPICon BACTERIA SMALL Abnormal NONE SEEN [facility] Comment on above: Performed By: #### C VDT[facility] #### [facility] [address] [place] [address] Dr. Ember Teague Bilirubin Ql (U) Negative Normal NEGATIVE [facility] Comment on above: Performed By: #### C VDT[facility] #### [facility] [address] [place] [address] Dr. Ember Teague CAST NONE SEEN Normal NONE SEEN [facility] Comment on above: Performed By: #### C VDT[facility] #### [facility] [address] [place] [address] Dr. Ember Teague Clarity (U) CLEAR Normal CLEAR [facility] Comment on above: Performed By: #### C VDT[facility] #### [facility] [address] [place] [address] Dr. Ember Teague Color (U) LT. YELLOW Normal YELLOW [facility] Comment on above: Performed By: #### C VDT[facility] #### [facility] [address] [place] [address] Dr. Ember Teague Crystals LM Nom (Urine sed) NONE SEEN Normal NONE SEEN [facility] Comment on above: Performed By: #### C VDT[facility] #### [facility] [address] [place] [address] Dr. Ember Teague Epithelial cells LM Ql (Urine sed) MODERATE Abnormal NONE SEEN /RARE [facility] Comment on above: Performed By: #### C VDT[facility] #### [facility] [address] [place] [address] Dr. Ember Teague Glucose Ql (U) Negative Normal NEGATIVE [facility] Comment on above: Performed By: #### C VDT[facility] #### [facility] [address] [place] [address] Dr. Ember Teague Hemoglobin Ql (U) Negative Normal NEGATIVE [facility] Comment on above: Performed By: #### C VDT[facility] #### [facility] [address] [place] [address] Dr. Ember Teague Ketones Ql (U) Negative Normal NEGATIVE [facility] Comment on above: Performed By: #### C VDT[facility] #### [facility] [address] [place] [address] Dr. Ember Teague LEUKOCYTES TRACE Abnormal NEGATIVE [facility] Comment on above: Performed By: #### C VDT[facility] #### [facility] [address] [place] [address] Dr. Ember Teague MUCOUS NONE SEEN Normal NONE SEEN [facility] Comment on above: Performed By: #### C VDT[facility] #### [facility] [address] [place] [address] Dr. Ember Teague Nitrite Ql (U) Negative Normal NEGATIVE [facility] Comment on above: Performed By: #### C VDT[facility] #### [facility] [address] [place] [address] Dr. Ember Teague pH (U) 5.0 [pH] Normal 5-9 [facility] Comment on above: Performed By: #### C VDT[facility] #### [facility] [address] [place] [address] Dr. Ember Teague RBC NONE SEEN Abnormal 0-2 [facility] Comment on above: Performed By: #### C VDT[facility] #### [facility] [address] [place] [address] Dr. Ember Teague SPEC GRAVITY 1.015 Normal 1.005-<=1.025 [facility] Comment on above: Performed By: #### C VDTBH #### [facility] [address] [place] [address] Dr. Ember Teague UA PROTEIN TRACE Normal NEGATIVE/ TRACE [facility] Comment on above: Performed By: #### C VDT[facility] #### [facility] [address] [place] [address] Dr. Ember Teague Urobilinogen Qn (U) 0.2 {Esau'U}/dL Normal 0.2 - 1. 0 [facility] Comment on above: Performed By: #### C VDTBH #### [facility] [address] [place] [address] Dr. Ember Teague WBC 0-2 Abnormal NONE SEEN [facility] Comment on above: Performed By: #### C VDT[facility] #### [facility] [address] [place] [address] Dr. Ember Teague URIC ACID SERUMon 05-02-2022 Urate [Mass/Vol] 4.4 mg/dL Normal 2.6-6.0 [facility] Comment on above: Performed By: #### C BC #### [facility] [address] [place] [address] Dr. Ember Teague URINE T PROTEIN CREAT RATIOo n 05-02-2022 Protein (U) [Mass/Vol] 33.7 mg/dL Critically high <=12.0 [facility] Comment on above: Performed By: #### C VDTBH #### [facility] [address] [address] [address] Ember Teague UR PROT CREAT RAT 0.69 Normal [facility] Comment on above: Performed By: #### C VDTBH #### [facility] [address] [address] [address] Ember Teague URINE CREAT 48.93 mg/dL Normal 20.00-300.00 [facility] Comment on above: Performed By: #### C VDTBH #### [facility] [address] [address] [address] Ember Teague Vital Signs Date Time Vital Sign Value Performing Clinician Facility 11-18-2023 10:00-0500 Body height 168.91 cm Ron Doreen Other [facility] Other 11-18-2023 10:00-0500 Body mass index (BMI) [Ratio] 29.85 kg/m2 Ron Doreen Other [facility] Other 11-18-2023 10:00-0500 Body temperature 97.3 [degF] Ron Doreen Other [facility] Other 11-18-2023 10:00-0500 Body weight 85.19 kg Ron Doreen Other [facility] Other 11-18-2023 10:00-0500 Diastolic blood pressure 79 mm[Hg] Ron Doreen Other [facility] Other 11-18-2023 10:00-0500 Respiratory rate 18 /min Ron Doreen Other [facility] Other 11-18-2023 10:00-0500 SaO2% (BldA) [Mass fraction] 98 % Ron Doreen Other [facility] Other 11-18-2023 10:00-0500 Systolic blood pressure 149 mm[Hg] Ron Doreen Other [facility] Other 11-04-2023 11:00-0500 Body height 168.91 cm Ron Doreen Other [facility] Other 11-04-2023 11:00-0500 Body mass index (BMI) [Ratio] 30.17 kg/m2 Ron Doreen Other [facility] Other 11-04-2023 11:00-0500 Body temperature 97.6 [degF] Ron Doreen Other [facility] Other 11-04-2023 11:00-0500 Body weight 86.09 kg Ron Doreen Other [facility] Other 11-04-2023 11:00-0500 Diastolic blood pressure 76 mm[Hg] Ron Doreen Other [facility] Other 11-04-2023 11:00-0500 Respiratory rate 18 /min Ron Doreen Other [facility] Other 11-04-2023 11:00-0500 SaO2% (BldA) [Mass fraction] 98 % Ron Doreen Other [facility] Other 11-04-2023 11:00-0500 Systolic blood pressure 153 mm[Hg] Ron Doreen Other [facility] Other 10-15-2023 13:00-0500 Body height 168.91 cm Ron Doreen Other [facility] Other 10-15-2023 13:00-0500 Body mass index (BMI) [Ratio] 29.82 kg/m2 Ron Doreen Other [facility] Other 10-15-2023 13:00-0500 Body temperature 97.5 [degF] Ron Doreen Other [facility] Other 10-15-2023 13:00-0500 Body weight 85.1 kg Ron Doreen Other [facility] Other 10-15-2023 13:00-0500 Diastolic blood pressure 68 mm[Hg] Ron Doreen Other [facility] Other 10-15-2023 13:00-0500 Respiratory rate 18 /min Ron Doreen Other [facility] Other 10-15-2023 13:00-0500 SaO2% (BldA) [Mass fraction] 98 % Ron Doreen Other [facility] Other 10-15-2023 13:00-0500 Systolic blood pressure 113 mm[Hg] Ron Doreen Other [facility] Other 08-27-2023 09:40-0500 Body height 168.91 cm Azduc VOIQs Other [facility] Other 08-27-2023 09:40-0500 Body mass index (BMI) [Ratio] 30.2 kg/m2 Aziz NPTVhous Other [facility] Other 08-27-2023 09:40-0500 Body temperature 96.7 [degF] Aziz Bakhous Other [facility] Other 08-27-2023 09:40-0500 Body weight 86.18 kg Aziz Bakhous Other [facility] Other 08-27-2023 09:40-0500 Diastolic blood pressure 72 mm[Hg] Aziz Bakhous Other [facility] Other 08-27-2023 09:40-0500 Respiratory rate 18 /min Aziz Bakhous Other [facility] Other 08-27-2023 09:40-0500 SaO2% (BldA) [Mass fraction] 98 % Azduc Bakhous Other [facility] Other 08-27-2023 09:40-0500 Systolic blood pressure 153 mm[Hg] Aziz Bakhous Other [facility] Other 08-15-2023 10:20-0500 Body height 168.91 cm Ron Doreen Other [facility] Other 08-15-2023 10:20-0500 Body mass index (BMI) [Ratio] 30.2 kg/m2 Ron Doreen Other [facility] Other 08-15-2023 10:20-0500 Body temperature 97.1 [degF] Ron Doreen Other [facility] Other 08-15-2023 10:20-0500 Body weight 86.18 kg Ron Doreen Other [facility] Other 08-15-2023 10:20-0500 Diastolic blood pressure 79 mm[Hg] Ron Doreen Other [facility] Other 08-15-2023 10:20-0500 Respiratory rate 18 /min Ron Doreen Other [facility] Other 08-15-2023 10:20-0500 SaO2% (BldA) [Mass fraction] 98 % Ron Doreen Other [facility] Other 08-15-2023 10:20-0500 Systolic blood pressure 164 mm[Hg] Ron Doreen Other [facility] Other 08-13-2023 15:40-0500 Body height 168.91 cm Ron Doreen Other [facility] Other 08-13-2023 15:40-0500 Body mass index (BMI) [Ratio] 30.24 kg/m2 Ron Doreen Other [facility] Other 08-13-2023 15:40-0500 Body temperature 97.2 [degF] Ron Doreen Other [facility] Other 08-13-2023 15:40-0500 Body weight 86.27 kg Ron Doreen Other [facility] Other 08-13-2023 15:40-0500 Diastolic blood pressure 79 mm[Hg] Ron Doreen Other [facility] Other 08-13-2023 15:40-0500 Respiratory rate 18 /min Ron Doreen Other [facility] Other 08-13-2023 15:40-0500 SaO2% (BldA) [Mass fraction] 98 % Ron Doreen Other [facility] Other 08-13-2023 15:40-0500 Systolic blood pressure 186 mm[Hg] Ron Doreen Other [facility] Other 08-01-2023 13:00-0400 Body height 168.91 cm Ron Doreen Other [facility] Other 08-01-2023 13:00-0400 Body mass index (BMI) [Ratio] 30.55 kg/m2 Ron Doreen Other [facility] Other 08-01-2023 13:00-0400 Body temperature 97.8 [degF] Ron Doreen Other [facility] Other 08-01-2023 13:00-0400 Body weight 87.18 kg Ron Doreen Other [facility] Other 08-01-2023 13:00-0400 Diastolic blood pressure 72 mm[Hg] Ron Doreen Other [facility] Other 08-01-2023 13:00-0400 Respiratory rate 18 /min Ron Doreen Other [facility] Other 08-01-2023 13:00-0400 SaO2% (BldA) [Mass fraction] 98 % Ron Doreen Other [facility] Other 08-01-2023 13:00-0400 Systolic blood pressure 160 mm[Hg] Ron Doreen Other [facility] Other 06-24-2023 11:40-0400 Body height 168.91 cm Ron Doreen Other [facility] Other 06-24-2023 11:40-0400 Body mass index (BMI) [Ratio] 29.89 kg/m2 Ron Doreen Other [facility] Other 06-24-2023 11:40-0400 Body temperature 97.3 [degF] Ron Doreen Other [facility] Other 06-24-2023 11:40-0400 Body weight 85.28 kg Ron Doreen Other [facility] Other 06-24-2023 11:40-0400 Diastolic blood pressure 75 mm[Hg] Ron Doreen Other [facility] Other 06-24-2023 11:40-0400 Respiratory rate 18 /min Ron Doreen Other [facility] Other 06-24-2023 11:40-0400 SaO2% (BldA) [Mass fraction] 99 % Ron Doreen Other [facility] Other 06-24-2023 11:40-0400 Systolic blood pressure 129 mm[Hg] Ron Doreen Other [facility] Other 06-06-2023 15:20-0400 Body height 168.91 cm Ron Doreen Other [facility] Other 06-06-2023 15:20-0400 Body mass index (BMI) [Ratio] 29.92 kg/m2 Ron Doreen Other [facility] Other 06-06-2023 15:20-0400 Body temperature 96.5 [degF] Ron Doreen Other [facility] Other 06-06-2023 15:20-0400 Body weight 85.37 kg Ron Doreen Other [facility] Other 06-06-2023 15:20-0400 Diastolic blood pressure 49 mm[Hg] Ron Doreen Other [facility] Other 06-06-2023 15:20-0400 Respiratory rate 18 /min Ron Doreen Other [facility] Other 06-06-2023 15:20-0400 SaO2% (BldA) [Mass fraction] 99 % Ron Doreen Other [facility] Other 06-06-2023 15:20-0400 Systolic blood pressure 128 mm[Hg] Ron Doreen Other [facility] Other 04-30-2023 11:40-0400 Body height 168.91 cm Ron Doreen Other [facility] Other 04-30-2023 11:40-0400 Body mass index (BMI) [Ratio] 30.52 kg/m2 Ron Doreen Other [facility] Other 04-30-2023 11:40-0400 Body temperature 96.9 [degF] Ron Doreen Other [facility] Other 04-30-2023 11:40-0400 Body weight 87.09 kg Ron Doreen Other [facility] Other 04-30-2023 11:40-0400 Diastolic blood pressure 80 mm[Hg] Ron Doreen Other [facility] Other 04-30-2023 11:40-0400 Respiratory rate 18 /min Ron Doreen Other [facility] Other 04-30-2023 11:40-0400 SaO2% (BldA) [Mass fraction] 98 % Ron Doreen Other [facility] Other 04-30-2023 11:40-0400 Systolic blood pressure 150 mm[Hg] Ron Doreen Other [facility] Other 04-06-2023 09:00-0400 Body height 168.91 cm Ron Doreen Other [facility] Other 04-06-2023 09:00-0400 Body mass index (BMI) [Ratio] 30.36 kg/m2 Ron Doreen Other [facility] Other 04-06-2023 09:00-0400 Body weight 86.64 kg Ron Doreen Other [facility] Other 04-06-2023 09:00-0400 Diastolic blood pressure 54 mm[Hg] Ron Doreen Other [facility] Other 04-06-2023 09:00-0400 Respiratory rate 18 /min Ron Doreen Other [facility] Other 04-06-2023 09:00-0400 SaO2% (BldA) [Mass fraction] 98 % Ron Doreen Other [facility] Other 04-06-2023 09:00-0400 Systolic blood pressure 144 mm[Hg] Ron Doreen Other [facility] Other 04-02-2023 14:40-0400 Body height 168.91 cm Ron Doreen Other [facility] Other 04-02-2023 14:40-0400 Body mass index (BMI) [Ratio] 30.55 kg/m2 Ron Doreen Other [facility] Other 04-02-2023 14:40-0400 Body temperature 97 [degF] Ron Doreen Other [facility] Other 04-02-2023 14:40-0400 Body weight 87.18 kg Ron Doreen Other [facility] Other 04-02-2023 14:40-0400 Diastolic blood pressure 76 mm[Hg] Ron Doreen Other [facility] Other 04-02-2023 14:40-0400 Respiratory rate 18 /min Ron Doreen Other [facility] Other 04-02-2023 14:40-0400 SaO2% (BldA) [Mass fraction] 98 % Ron Doreen Other [facility] Other 04-02-2023 14:40-0400 Systolic blood pressure 183 mm[Hg] Ron Doreen Other [facility] Other 03-07-2023 09:20-0400 Body height 168.91 cm Ron Doreen Other [facility] Other 03-07-2023 09:20-0400 Body mass index (BMI) [Ratio] 30.52 kg/m2 Ron Doreen Other [facility] Other 03-07-2023 09:20-0400 Body temperature 97.1 [degF] Ron Doreen Other [facility] Other 03-07-2023 09:20-0400 Body weight 87.09 kg Ron Doreen Other [facility] Other 03-07-2023 09:20-0400 Diastolic blood pressure 72 mm[Hg] Ron Doreen Other [facility] Other 03-07-2023 09:20-0400 Respiratory rate 18 /min Ron Doreen Other [facility] Other 03-07-2023 09:20-0400 SaO2% (BldA) [Mass fraction] 97 % Ron Doreen Other [facility] Other 03-07-2023 09:20-0400 Systolic blood pressure 130 mm[Hg] Ron Doreen Other [facility] Other 12-20-2022 13:20-0400 Body height 168.91 cm Ron Doreen Other [facility] Other 12-20-2022 13:20-0400 Body mass index (BMI) [Ratio] 30.68 kg/m2 Ron Doreen Other [facility] Other 12-20-2022 13:20-0400 Body temperature 97.1 [degF] Ron Doreen Other [facility] Other 12-20-2022 13:20-0400 Body weight 87.54 kg Ron Doreen Other [facility] Other 12-20-2022 13:20-0400 Diastolic blood pressure 72 mm[Hg] Ron Doreen Other [facility] Other 12-20-2022 13:20-0400 Respiratory rate 18 /min Ron Doreen Other [facility] Other 12-20-2022 13:20-0400 SaO2% (BldA) [Mass fraction] 99 % Ron Doreen Other [facility] Other 12-20-2022 13:20-0400 Systolic blood pressure 139 mm[Hg] Ron Doreen Other [facility] Other 11-05-2022 14:00-0500 Body height 168.91 cm Ron Doreen Other [facility] Other 11-05-2022 14:00-0500 Body mass index (BMI) [Ratio] 30.59 kg/m2 Ron Doreen Other [facility] Other 11-05-2022 14:00-0500 Body temperature 96.8 [degF] Ron Doreen Other [facility] Other 11-05-2022 14:00-0500 Body weight 87.27 kg Ron Doreen Other [facility] Other 11-05-2022 14:00-0500 Diastolic blood pressure 72 mm[Hg] Ron Doreen Other [facility] Other 11-05-2022 14:00-0500 Respiratory rate 18 /min Ron Doreen Other [facility] Other 11-05-2022 14:00-0500 SaO2% (BldA) [Mass fraction] 98 % Ron Doreen Other [facility] Other 11-05-2022 14:00-0500 Systolic blood pressure 157 mm[Hg] Ron Doreen Other [facility] Other 09-27-2022 16:00-0500 Body height 168.91 cm Jana Monson Other [facility] Other 09-27-2022 16:00-0500 Body mass index (BMI) [Ratio] 30.55 kg/m2 Jana Monson Other [facility] Other 09-27-2022 16:00-0500 Body temperature 96.8 [degF] Jana Monson Other [facility] Other 09-27-2022 16:00-0500 Body weight 87.18 kg Jana Monson Other [facility] Other 09-27-2022 16:00-0500 Diastolic blood pressure 73 mm[Hg] Jana Monson Other [facility] Other 09-27-2022 16:00-0500 Respiratory rate 18 /min Jana Monson Other [facility] Other 09-27-2022 16:00-0500 SaO2% (BldA) [Mass fraction] 98 % Jana Monson Other [facility] Other 09-27-2022 16:00-0500 Systolic blood pressure 159 mm[Hg] Jana Monson Other [facility] Other 08-22-2022 12:00-0500 Body height 168.91 cm Ron Doreen Other [facility] Other 08-22-2022 12:00-0500 Body mass index (BMI) [Ratio] 30.65 kg/m2 Ron Doreen Other [facility] Other 08-22-2022 12:00-0500 Body temperature 96.9 [degF] Ron Doreen Other [facility] Other 08-22-2022 12:00-0500 Body weight 87.45 kg Ron Doreen Other [facility] Other 08-22-2022 12:00-0500 Diastolic blood pressure 75 mm[Hg] Ron Doreen Other [facility] Other 08-22-2022 12:00-0500 Respiratory rate 18 /min Ron Doreen Other [facility] Other 08-22-2022 12:00-0500 SaO2% (BldA) [Mass fraction] 96 % Ron Doreen Other [facility] Other 08-22-2022 12:00-0500 Systolic blood pressure 121 mm[Hg] Ron Doreen Other [facility] Other 05-08-2022 10:20-0400 Body height 168.91 cm Ron Doreen Other [facility] Other 05-08-2022 10:20-0400 Body mass index (BMI) [Ratio] 31.54 kg/m2 Ron Doreen Other [facility] Other 05-08-2022 10:20-0400 Body temperature 97.6 [degF] Ron Doreen Other [facility] Other 05-08-2022 10:20-0400 Body weight 89.99 kg Ron Doreen Other [facility] Other 05-08-2022 10:20-0400 Diastolic blood pressure 68 mm[Hg] Ron Doreen Other [facility] Other 05-08-2022 10:20-0400 Respiratory rate 18 /min Ron Doreen Other [facility] Other 05-08-2022 10:20-0400 SaO2% (BldA) [Mass fraction] 98 % Ron Doreen Other [facility] Other 05-08-2022 10:20-0400 Systolic blood pressure 131 mm[Hg] Ron Doreen Other [facility] Other 01-18-2022 10:20-0400 Body height 168.91 cm Ron Doreen Other [facility] Other 01-18-2022 10:20-0400 Body mass index (BMI) [Ratio] 31 kg/m2 Ron Doreen Other [facility] Other 01-18-2022 10:20-0400 Body temperature 96.4 [degF] Ron Doreen Other [facility] Other 01-18-2022 10:20-0400 Body weight 88.45 kg Ron Doreen Other [facility] Other 01-18-2022 10:20-0400 Diastolic blood pressure 74 mm[Hg] Ron Doreen Other [facility] Other 01-18-2022 10:20-0400 Respiratory rate 18 /min Ron Doreen Other [facility] Other 01-18-2022 10:20-0400 SaO2% (BldA) [Mass fraction] 97 % Ron Doreen Other [facility] Other 01-18-2022 10:20-0400 Systolic blood pressure 170 mm[Hg] Ron Doreen Other [facility] Other Encounters Encounter Date Encounter Type Care Provider Facility Start: 11-18-2023 End: 11-18-2023 ambulatory Ron Doreen Other [facility] Other Start: 11-18-2023 Office outpatient visit 15 minutes Ron Doreen [facility] Start: 11-05-2023 End: 11-05-2023 ambulatory [place] Josh CRESPO Not Available Start: 11-04-2023 (INJECTION) INJECTION Ron D[facility]en [facility] Start: 11-04-2023 End: 11-04-2023 ambulatory Ron Doreen Other [facility] Other Start: 10-22-2023 End: 10-22-2023 ambulatory [place] Josh CRESPO Not Available Start: 10-15-2023 End: 10-15-2023 ambulatory Ron Doreen Other [facility] Other Start: 10-15-2023 Office outpatient visit 15 minutes Ron Doreen [facility] Start: 10-08-2023 End: 10-08-2023 ambulatory Aziz Bakhous Other [facility] Other Start: 10-08-2023 Telephone encounter Aziz Bakhous [facility] Start: 09-15-2023 End: 09-15-2023 ambulatory Ron Doreen Other [facility] Other Start: 09-15-2023 Telephone encounter Ron Doreen [facility] Start: 09-09-2023 End: 09-09-2023 ambulatory Ron Doreen Other [facility] Other Start: 09-09-2023 Telephone encounter Ron Doreen [facility] Start: 08-27-2023 (INJECTION) INJECTION Aziz Bakhous [facility] Start: 08-27-2023 End: 08-27-2023 ambulatory Aziz Bakhous Other [facility] Other Start: 08-15-2023 (INJECTION) INJECTION [facility] Start: 08-15-2023 End: 08-15-2023 ambulatory Ron Doreen Other [facility] Other Start: 08-13-2023 (INJECTION) INJECTION [facility] Start: 08-13-2023 End: 08-13-2023 ambulatory Ron Doreen Other [facility] Other Start: 08-01-2023 End: 08-01-2023 ambulatory Ron Doreen Other [facility] Other Start: 08-01-2023 Office outpatient visit 15 minutes Ron Doreen [facility] Start: 06-24-2023 End: 06-24-2023 ambulatory Ron Doreen Other [facility] Other Start: 06-24-2023 Office outpatient visit 10 minutes Ron Doreen [facility] Start: 06-06-2023 End: 06-06-2023 ambulatory Ron Doreen Other [facility] Other Start: 06-06-2023 Office outpatient visit 15 minutes Ron Doreen [facility] Start: 04-30-2023 End: 04-30-2023 ambulatory Ron Doreen Other [facility] Other Start: 04-30-2023 Office outpatient visit 15 minutes Ron Doreen [facility] Start: 04-06-2023 (INJECTION) INJECTION [facility] Start: 04-06-2023 End: 04-06-2023 ambulatory Ron Doreen Other [facility] Other Start: 04-06-2023 Telephone encounter Ron Doreen [facility] Start: 04-02-2023 End: 04-02-2023 ambulatory Ron Doreen Other [facility] Other Start: 04-02-2023 Office outpatient visit 15 minutes Ron Doreen [facility] Start: 04-02-2023 Telephone encounter Ron Doreen [facility] Start: 03-07-2023 End: 03-07-2023 ambulatory Ron Doreen Other [facility] Other Start: 03-07-2023 Office outpatient visit 15 minutes Ron Doreen [facility] Start: 01-22-2023 End: 01-23-2023 ambulatory RON DOREEN Facility:[facility] Start: 12-20-2022 End: 12-20-2022 ambulatory Ron Doreen Other [facility] Other Start: 12-20-2022 Office outpatient visit 15 minutes Ron Doreen [facility] Start: 12-17-2022 End: 12-18-[address] DHRUV GUTIERRES . Facility:[facility] Start: 12-10-2022 End: 12-11-2022 ambulatory RON DOREEN Facility:[facility] Start: 11-20-2022 End: 11-21-[address] BENI APARICIO Facility:[facility] Start: 11-05-2022 End: 11-05-2022 ambulatory Ron Doreen Other [facility] Other Start: 11-05-2022 Office outpatient visit 15 minutes Ron Doreen [facility] Start: 10-29-2022 End: 10-30-[address] JANA MONSON Facility:[facility] Start: 10-24-2022 End: 10-24-[address] LILLIAN ACOSTA . Facility:[facility] Start: 10-24-2022 End: 10-25-[address] DHRUV GUTIERRES . Facility:[facility] Start: 09-27-2022 End: 09-27-2022 ambulatory Jana Monson Other [facility] Other Start: 09-27-2022 Office outpatient visit 15 minutes Jana Elashi [facility] Start: 09-18-2022 End: 09-19-2022 ambulatory RON DOREEN Facility:[facility] Start: 09-11-2022 End: 09-11-[address] DHRUV GUTIERRES . Facility:[facility] Start: 08-22-2022 End: 08-22-2022 ambulatory Ron Doreen Other [facility] Other Start: 08-22-2022 Office outpatient visit 15 minutes Ron Doreen [facility] Start: 08-13-2022 End: 08-14-2022 ambulatory RON DOREEN Facility:[facility] Start: 06-25-2022 End: 06-26-[address] DHRUV GUTIERRES . Facility:[facility] Start: 06-18-2022 End: 06-18-[address] DHRUV GUTIERRES . Facility:[facility] Start: 06-01-2022 End: 06-02-[address] YANET HUERTA Facility:[facility] Start: 05-28-2022 End: 05-28-2022 ambulatory Ron Doreen Other [facility] Other Start: 05-28-2022 Telephone encounter Ron Doreen [facility] Start: 05-21-2022 End: 05-22-[address] DHRUV GUTIERRES . Facility:[facility] Start: 05-16-2022 End: 05-16-2022 ambulatory Ron Doreen Other [facility] Other Start: 05-16-2022 Telephone encounter Ron Doreen [facility] Start: 05-10-2022 End: 05-10-2022 ambulatory Ron Doreen Other [facility] Other Start: 05-10-2022 Telephone encounter Ron Doreen [facility] Start: 05-08-2022 End: 05-08-2022 ambulatory Ron Doreen Other [facility] Other Start: 05-08-2022 Office outpatient visit 25 minutes Ron Doreen [facility] Start: 05-02-2022 End: 05-03-2022 ambulatory RON DOREEN Facility: Start: 04-24-2022 End: 04-24-2022 ambulatory Azduc Mensahs Other [facility] Other Start: 04-24-2022 Telephone encounter Azduc Mensahs [facility] Start: 01-18-2022 End: 01-18-2022 ambulatory Ron Doreen Other [facility] Other Start: 01-18-2022 Office outpatient visit 25 minutes Ron Doreen [facility] Start: 05-21-2017 End: 05-22-2017 Ambulatory DEFAULT PHYSICIAN Facility:[facility] Payers Date Payer Category Payer Medicare [id number] 2. [id number] 1945 Unknown [id number] 2.16.84 [id number] 1945 Unknown [id number] 2.16.84 0.1.769742.3.579.2.593 1945 Unknown [id number] 2.16.84 0.1.803310.3.579.2.593 1945 Unknown [id number] 2.16.84 0.1.780757.3.579.2.593 1945 Unknown [id number] 2.16.84 0.1.359195.3.579.2.593 1945 Unknown [id number] 2.16.84 0.1.863778.3.579.2.593 1945 Unknown [id number] 2.16.84 0.1.371228.3.579.2.593 1945 Unknown [id number] 2.16.84 0.1.044690.3.579.2.593 1945 Unknown [id number] 2.16.84 0.1.987360.3.579.2.593 1945 Unknown [id number] 2.16.84 0.1.278401.3.579.2.593 1945 Unknown [id number] 2.16.84 0.1.180141.3.579.2.593 1944 Unknown [id number] 2.16.84 0.1.366036.3.579.2.593 1944 Unknown [id number] 2.16.84 0.1.027539.3.579.2.593 1944 Unknown [id number] 2.16.84 0.1.254476.3.579.2.593 1945 Unknown [id number] 2.16.84 0.1.485162.3.579.2.593 1945 Unknown [id number] 2.16.84 0.1.705936.3.579.2.593 1945 Unknown [id number] 2.16.84 0.1.511606.3.579.2.1259 1945 Unknown [id number] 2.16.84 0.1.498531.3.579.2.1259 Unknown Social History Date Type Detail Facility Unknown if ever smoked [facility] Other Sex Assigned At Sex Assigned At Bir th [facility] Other Clinical Notes 01-18-2022 to 11-18-2023 Note Date & Type Note Facility 11-18-2023 Evaluation note Encounter Date Diagnosis Assessment Notes Nov, Anemia of renal disease (ICD-10 - D63.1) Hb is below the target goal and has adequate Iron stores. Continue oral Iron. Continue Retacrit every 3 weeks. Nov, CKD (chronic kidney disease) stage 4, GFR 15-29 ml/min (ICD-10 - N18.4) She has CKD IV due to longstanding HTN with DM. Her baselin serum Creatinine is 1.7-2 mg d/l. Abdomen function has declined either [...] of kidney mass hydronephrosis or kidney stones. Nov, Hypertensive chronic kidney disease with stage 1 [...] continues to run high in the office. 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 Monitor uric acid every 4 to 6 months. Nov, Type 2 diabetes mellitus with diabetic chronic kidney disease (ICD-10 - E11.22) Her Blood sugars are within the acceptable range. I have advised her to continue to work with Dr. Pope for DM management. She he has a subnephrotic range proteinuria. Continue lisinopril 10 mg daily. Due to her advanced CKD she is not a suitable candidate for Farxiga, Jardiance or finerenone. Nov, Secondary hyperparathyroidism (ICD-10 - N25.81) MBD parameters including PTH, calcium, Vit D and phosphorus are within the goal. Continue Vit D 5000 units daily Nov, Hyperkalemia (ICD-10 - E87.5) She has hyperkalemia likely due to the CKD and lisinopril. Her potassium improved with dietary restriction and Lasix. [facility] Other 01-29-2024 Evaluation note* Encounter Date Diagnosis Assessment Notes Treatment Notes Treatment Clinical Notes Oct, Anemia of renal disease (ICD-10 - D63.1) Oct, CKD (chronic kidney disease) stage 4, GFR 15-29 ml/min (ICD-10 - N18.4) [facility] Other 01-09-2024 Evaluation note* Encounter Date Diagnosis [...] potassium improved with dietary restriction and Lasix. [facility] Other 12-04-2023 Evaluation note* Encounter Date Diagnosis [...] 4, GFR 15-29 ml/min (ICD-10 - N18.4) [facility] Other 11-21-2023 Evaluation note* Encounter Date Diagnosis Assessment Notes Treatment Notes Treatment Clinical Notes Aug, Anemia of renal disease (ICD-10 - D63.1) Aug, CKD (chronic kidney disease) stage 4, GFR 15-29 ml/min (ICD-10 - N18.4) [facility] Other 11-09-2023 Evaluation note* Encounter Date Diagnosis [...] of kidney mass hydronephrosis or kidney stones. [facility] Other 10-26-2023 Evaluation note* Encounter Date Diagnosis [...] potassium improved with dietary restriction and Lasix. [facility] Other 09-18-2023 Evaluation note* Encounter Date Diagnosis [...] potassium improved with dietary restriction and Lasix. [facility] Other 08-31-2023 Evaluation note* Encounter Date Diagnosis [...] potassium improved with dietary restriction and Lasix. [facility] Other 07-25-2023 Evaluation note* Encounter Date Diagnosis [...] to normal with dietary restriction and Lasix. [facility] Other 07-01-2023 Evaluation note* Encounter Date Diagnosis Assessment Notes Treatment Notes Treatment Clinical Notes Apr, CKD (chronic kidney disease) stage 4, GFR 15-29 ml/min (ICD-10 - N18.4) Apr, Anemia of renal disease (ICD-10 - D63.1) [facility] Other 06-27-2023 Evaluation note* Encounter Date Diagnosis [...] to normal with dietary restriction and Lasix. [facility] Other 06-01-2023 Evaluation note* Encounter Date Diagnosis [...] potassium diet and provide information about it. [facility] Other 03-16-2023 Evaluation note* Encounter Date Diagnosis [...] to Continue Vit D 5000 units daily [facility] Other 01-30-2023 Evaluation note* Encounter Date Diagnosis [...] to Continue Vit D 5000 units daily [facility] Other 12-22-2022 Evaluation note* Encounter Date Diagnosis [...] to Continue Vit D 5000 units daily [facility] Other 11-16-2022 Evaluation note* Encounter Date Diagnosis [...] to Continue Vit D 5000 units daily [facility] Other 08-04-2022 Evaluation note* Encounter Date Diagnosis Assessment Notes Treatment Notes Treatment Clinical Notes May, Hypertensive chronic kidney disease with stage 1 through stage 4 chronic kidney disease, or unspecified chronic kidney disease (ICD-10 - I12.9) [facility] Other 08-02-2022 Evaluation note* Encounter Date Diagnosis [...] to Continue Vit D 5000 units daily [facility] Other 07-19-2022 Evaluation note* Encounter Date Diagnosis Assessment Notes Treatment Notes Treatment Clinical Notes Apr, Hypertensive chronic kidney disease with stage 1 through stage 4 chronic kidney disease, or unspecified chronic kidney disease (ICD-10 - I12.9) [facility] Other 04-14-2022 Evaluation note* Encounter Date Diagnosis [...] to take Vit D 1000 units daily [facility] Other Evaluation noteNo InformationNort [employer] Other [facility] general Narrative - Reported* Type Description Date [...] History SEE ABOVE Hospitalization History COVID 09/2020 [facility] Other history general Narrative - Reported* Type [...] History SEE ABOVE Hospitalization History COVID 09/2020 [facility] Other history general Narrative - Reported* Type [...] History SEE ABOVE Hospitalization History COVID 09/2020 [facility] Other History general Narrative - ReportedNoMRO Other History general Narrative - Reported* Type [...] History SEE ABOVE Hospitalization History COVID 09/2020 [facility] Other Summary Purpose Family History No Family History Records FoundNo Family History Records FoundNo Family History Records Found Advance Directives No Advanced Directives Records FoundNo Advanced Directives Records FoundNo Advanced Directives Records Found Additional Source Comments INFORMATION SOURCE (unrecogn ized section and content) DATE CREATED AUTHOR 04/02/2018 [facility] DATE CREATED AUTHOR AUTHOR'S ORGANIZ ATION 01/27/2023 [facility] DATE CREATED AUTHOR AUTHOR'S ORGANIZ ATION 11/06/[address] [facility] EPIC REASON FOR VISIT [...] AnemiaRENAL 3 WK INJ / RETACRIT / NURSECKD and Anemia FOR RECORDS PERTAINING TO PATIENTS [...] BE BASED ON THE PRIMARY CLINICAL RECORDS. [facility]. provides no warranty or guarantee of the accuracy or completeness of information in this document.
[2023-12-02 06:51] LABS: Hematocrit 31.7 % (36.0-48.0); Hemoglobin 10.1 g/dL (12.0-16.0); Mean Corpuscular HGB Conc 31.9 g/dL (29.9-35.2); Mean Corpuscular Hemoglobin 30.3 pg (26.7-34.0); Mean Corpuscular Volume 95.2 fL (81.0-99.0); Mean Platelet Volume 9.5 fL (9.5-13.5); Platelet Count 184 10^3/uL (150-450); Red Blood Count 3.33 10^6/uL (4.20-5.40); Red Cell Distribution Width 16.1 % (11.0-15.0)
== END 2023-12-02 06:35 | disposition home or self-care (01) ==
LOC: LAB 06:35
PROVIDERS: PCP Family Medicine; Visit Provider Internal Medicine
DX: I12.9 Hypertensive chronic kidney disease with stage 1 through stage 4 chronic kidney disease, or unspecified chronic kidney disease (principal); N18.4 Chronic kidney disease, stage 4 (severe); D63.1 Anemia in chronic kidney disease; M1A.00X0 Idiopathic chronic gout, unspecified site, without tophus (tophi); E11.22 Type 2 diabetes mellitus with diabetic chronic kidney disease; N25.81 Secondary hyperparathyroidism of renal origin; E87.5 Hyperkalemia
CPT/HCPCS: 36415; 82728; 83540; 83550; 85027

== ENCOUNTER 2023-12-19 10:03 | Outpatient (OUT) | payer MEDICARE, SELFPAY ==
--- NOTE | 2023-12-19 10:05 | MM_ITS ---
Patient Name: KYLAH BERGER MR#: [id number] : 1945 Exam Date: 12/19/2023 Ordering Doctor: DR DHRUV GUTIERRES . RADIOLOGY REPORT PROCEDURE: MM TOMOSYNTHESIS SCREENING BI COMPARISON: MG MAMM SCREEN 3D MAY CAD, 12/17/2022. MG MAMM SCREEN 3D MAY CAD, 12/15/2021. MG MAMM SCREEN MAY W CAD, 03/07/2020. MG MAMM MAY SCRN W CAD DIG, 10/01/2013. INDICATIONS: screening Calculator Name NCI Breast Cancer Risk Assessment Tool 5 Year Breast Cancer Risk 3.80% Lifetime Breast Cancer Risk 6.30% Personal Breast Cancer No Personal Ovarian Cancer No Treatments None Family Cancers Grandmother-maternal with breast cancer at age 70; Daughter with breast cancer at age 35; Aunt-maternal with breast cancer at age 72; Father with lung cancer at age 62. LOCATION: [facility] BREAST COMPOSITION: Scattered areas fibroglandular density. FINDINGS: DIAGNOSTIC CATEGORY 2--BENIGN FINDING: RIGHT BREAST: No significant suspicious finding. No significant change has occurred. LEFT BREAST: No significant suspicious finding. Scattered benign-appearing lymph nodes are present. No significant change has occurred. RECOMMENDATIONS: ROUTINE MAMMOGRAM AND CLINICAL EVALUATION IN 12 MONTHS. PLEASE NOTE: A NORMAL MAMMOGRAM DOES NOT EXCLUDE THE POSSIBILITY OF BREAST CANCER. A CLINICALLY SUSPICIOUS PALPABLE LUMP SHOULD BE BIOPSIED. Dictated by: Jairo Kim M.D. on 12/19/2023 at 15:54 Approved by: Jairo Kim M.D. on 12/19/2023 at 15:58
--- OUTSIDE RECORDS SUMMARY | 2023-12-19 10:22 | XMS_ITS | CCD ---
Author Name Unknown Address [address] [place] [address] Organization [facility] Care Team Providers Care Coil Tester Name Role Phone PHYSICIAN, DEFAULT Unavailable Unavailable PHYSICIAN, DEFAULT Unavailable Unavailable Doreen, Ron Unavailable SoniÓscar olivaduc Unavailable Iona Varinderreinaldo Unavailable BHAVIK ., DR [...] Unavailable HOY ., DR BARTLETT Admitting Unavailable ANGELINA BRISENO Consulting Unavailable ELASHI, DR SKINNER Consulting Unavailable HOY ., DR BATRLETT Primary Care Unavailable ELASHI, DR SKINNER Attending [...] ., DR BARTLETT Primary Care Unavailable DOREEN, ORN Attending Unavailable DOREEN, RON Admitting Unavailable HOY [...] CRESPO Attending Unavailable GA CRESPO Attending Unavailable GREG TINEO Attending Unavailable Allergies Allergy Classification Reported Allergen(s) Allergy Type Date of Onset Reaction(s) Facility (20 sources) amLODIPine Drug Allergy Unknown [facility] Other (20 sources) Amoxicillin / Clavulanate Drug Allergy Unknown [facility] Other (20 sources) Contrast media Propensity to adverse reactions Unknown [facility] Other (2 sources) Doxazosin; Translations: [doxazosin] Drug Allergy Unknown [facility] Other (20 sources) Sulfamethoxazole / Trimethoprim Drug Allergy Unknown [facility] Other (20 sources) Doxazosin Drug Allergy Unknown [facility] Other (9 sources) Amoxicillin / Clavulanate; Translations: [Augmentin] Drug Allergy 11-16-19 [address] [facility] (1 source) amLODIPine Drug Allergy 04-25-[address] [facility] (1 source) Sulfamethoxazole / Trimethoprim Drug Allergy 03-09-20 [address] [facility] Medications Current Medications Medication Drug [...] Active docusate sodium 50 mg / sennosides, detention 8.6 mg oral tablet (5 sources) take 1 tablet by mouth every twelve hours Sennosides-Docusate Sodium 8.6-50 MG 1 tablet in the evening as needed Orally every 12 hours Active epoetin johnna-epbx 40419 UNT/ML Injectable Solution [Retacrit] (14 sources) Retacrit 50611 U NIT/ML as directed Injection Active ferrous [...] a day Active take 2 tablets by [facility] every twenty-four hours Liothyronine Sodium 5 MCG 2 tablets on a n empty stomach Orally Once a day Active take 2 tablets [facility] lisinopril 10 mg [...] tablet Orally Once a day Active retacrit 00385 unit/ml solution (5 sources) Retacrit 77997 UNIT/ML as directed Injection Active Sennosides-Docusate Sodium [...] [Volume fraction] 28.8 % Critically low 36.0-48.0 [facility] Comment on above: Performed By: #### H H #### [facility] [address] [address] [address] Ember Teague Hemoglobin (Bld) [Mass/Vol] 9.6 g/dL Critically low 12.0-16.[address] [facility] Comment on above: Performed By: #### H H #### [facility] [address] [address] [address] Ember Teague MCH (RBC) [Entitic mass] 30.7 pg Normal 26.7-34.0 [facility] Comment on above: Performed By: #### H H #### [facility] [address] [place] [address] Dr. Ember Teague MCHC (RBC) [Mass/Vol] 33.3 g/dL Normal 29.9-35.[address] [facility] Comment on above: Performed By: #### H H #### [facility] [address] [place] [address] Dr. Ember Teague MCV (RBC) [Entitic vol] 92.0 fL Normal 81.0-99.0 [facility] Comment on above: Performed By: #### H H #### [facility] [address] [place] [address] Dr. Ember Teague PLT 214 103/ul Normal 150-[address] [facility] Comment on above: Performed By: #### H H #### [facility] [address] [place] [address] Dr. Ember Teague RBC 3.13 106/ul Critically low 4.20-5.40 [facility] Comment on above: Performed By: #### H H #### [facility] [address] [place] [address] Dr. Ember Teague WBC 7.4 103/ul Normal 4.0-11.[address] [facility] Comment on above: Performed By: #### H H #### [facility] [address] [address] [address] Ember Teague MAGNESIUMon 01-22-2023 Magnesium [Mass/Vol] 1.8 mg/dL Normal 1.8-2.4 [facility] Comment on above: Performed By: #### M G, RENAL #### [facility] [address] [address] [address] Ember Teague RENAL FUNCTION PANELon 01-22 Albumin [Mass/Vol] 3.6 g/dL Normal 3.4-5.0 [facility] Comment on above: Performed By: #### M G, RENAL #### [facility] [address] [address] [address] Ember Teague Calcium [Mass/Vol] 9.7 mg/dL Normal 8.5-10.1 [facility] Comment on above: Performed By: #### M G, RENAL #### [facility] [address] [address] [address] Ember Teague Chloride [Moles/Vol] 105 mmol/L Normal 98-[address] [facility] Comment on above: Performed By: #### M G, RENAL #### [facility] [address] [address] [address] Ember Teague CO2 [Moles/Vol] 22.6 mmol/L Normal 21.0-32.0 [facility] Comment on above: Performed By: #### M G, RENAL #### [facility] [address] [address] [address] Ember Teague Creatinine [Mass/Vol] 2.18 mg/dL Critically high 0.55-1.02 [facility] Comment on above: Performed By: #### M G, RENAL #### [facility] [address] [address] [address] Ember Teague EGFR-AF MAURITANIAN 26 mL/min/1.73m2 Critically low >=60 [facility] Comment on above: Performed By: #### M G, RENAL #### [facility] [address] [address] [address] Ember Teague EGFR-NON AF MAURITANIAN 22 mL/min/1.73m2 Critically low >=60 [facility] Comment on above: Performed By: #### M G, RENAL #### [facility] [address] [address] [address] Ember Teague Glucose [Mass/Vol] 134 mg/dL Critically high 74-106 [facility] Comment on above: Performed By: #### M G, RENAL #### [facility] [address] [address] [address] Ember Teague Phosphate [Mass/Vol] 4.6 mg/dL Normal 2.6-4.7 [facility] Comment on above: Performed By: #### M G, RENAL #### [facility] [address] [address] [address] Ember Teague Potassium [Moles/Vol] 5.1 mmol/L Normal 3.5-5.1 [facility] Comment on above: Performed By: #### M G, RENAL #### [facility] [address] [place] [address] Dr. Ember Teague Sodium [Moles/Vol] 138 mmol/L Normal 136-145 [facility] Comment on above: Performed By: #### M G, RENAL #### [facility] [address] [address] [address] Ember Teague Urea nitrogen [Mass/Vol] 61.0 mg/dL Critically high 7.0-18.0 [facility] Comment on above: Performed By: #### M G, RENAL #### [facility] [address] [place] [address] Dr. Ember Teague MG MAMM SCREEN 3D MAY CADon 12-17-2022 MG MAMM SCREEN 3D MAY CAD Patient: KYLAH BERGER Exam Date: 12/17/2022 : 1945 Gender:F Ordering : DR DHRUV GUTIERRES . Admission #: [id number] Family : Order #: [id number] CLICK HERE TO VIEW EXAM RADIOLOGY REPORT [...] lung cancer at age 61. LOCATION: [facility] BREAST COMPOSITION: Scattered areas fibroglandular density. [...] MD on 12/17/2022 at 11:59 Normal [facility] FERRITINon 12-10-2022 Ferritin [Mass/Vol] 681.0 ng/mL Critically high 8.0-252.[address] [facility] Comment on above: Performed By: #### P THINT #### [facility] [address] [place] [address] Dr. Ember Teague HEMOGRAM AND PLATELon 2022 Hematocrit (Bld) [Volume fraction] 27.1 % Critically low 36.0-48.0 [facility] Comment on above: Performed By: #### C VDTBH #### [facility] [address] [place] [address] Dr. Ember Teague Hemoglobin (Bld) [Mass/Vol] 9.7 g/dL Critically low 12.0-16.[address] [facility] Comment on above: Performed By: #### C VDTBH #### [facility] [address] [place] [address] Dr. Ember Teague MCH (RBC) [Entitic mass] 31.4 pg Normal 26.7-34.0 [facility] Comment on above: Performed By: #### C VDTBH #### [facility] [address] [place] [address] Dr. Ember Teague MCHC (RBC) [Mass/Vol] 35.8 g/dL Critically high 29.9-35.[address] [facility] Comment on above: Performed By: #### C VDTBH #### [facility] [address] [place] [address] Dr. Ember Teague MCV (RBC) [Entitic vol] 87.7 fL Normal 81.0-99.0 [facility] Comment on above: Performed By: #### C VDTBH #### [facility] [address] [place] [address] Dr. Ember Teague PLT 218 103/ul Normal 150-450 [facility] Comment on above: Performed By: #### C VDTBH #### [facility] [address] [place] [address] Dr. Ember Teague RBC 3.09 106/ul Critically low 4.20-5.40 [facility] Comment on above: Performed By: #### C VDTBH #### [facility] [address] [place] [address] Dr. Ember Teague WBC 6.6 103/ul Normal 4.0-11.[address] [facility] Comment on above: Performed By: #### C VDTBH #### [facility] [address] [place] [address] Dr. Ember Teague IRON AND TIBCon 12-10-2022 % SATURATION 30.2 % Normal [facility] Comment on above: Performed By: #### P THINT #### [facility] [address] [place] [address] Dr. Ember Teague Iron [Mass/Vol] 84.0 ug/dL Normal 50.0-170.0 [facility] Comment on above: Performed By: #### P THINT #### [facility] [address] [place] [address] Dr. Ember Teague TIBC DIRECT 278.0 ug/dL Normal 250.0-450.0 [facility] Comment on above: Performed By: #### P THINT #### [facility] [address] [place] [address] Dr. Ember Teague XR FOOT MAY MIN [...] BENI APARICIO Date: 2022-11-20 14:03 Normal [facility] HEMOGRAM AND PLATELon 2022 Hematocrit (Bld) [Volume fraction] 27.7 % Critically low 36.0-48.[address] [facility] Comment on above: Performed By: #### R ENAL #### [facility] [address] [place] [address] Dr. Ember Teague Hemoglobin (Bld) [Mass/Vol] 10.0 g/dL Critically low 12.0-16.0 [facility] Comment on above: Performed By: #### R ENAL #### [facility] [address] [place] [address] Dr. Ember Teague MCH (RBC) [Entitic mass] 31.6 pg Normal 26.7-34.[address] [facility] Comment on above: Performed By: #### R ENAL #### [facility] [address] [place] [address] Dr. Ember Teague MCHC (RBC) [Mass/Vol] 36.1 g/dL Critically high 29.9-35.[address] [facility] Comment on above: Performed By: #### R ENAL #### [facility] [address] [place] [address] Dr. Ember Teague MCV (RBC) [Entitic vol] 87.7 fL Normal 81.0-99.[address] [facility] Comment on above: Performed By: #### R ENAL #### [facility] [address] [address] [address] Ember Teague PLT 182 103/ul Normal 150-450 [facility] Comment on above: Performed By: #### R ENAL #### [facility] [address] [address] [address] Ember Teague RBC 3.16 106/ul Critically low 4.20-5.40 [facility] Comment on above: Performed By: #### R ENAL #### [facility] [address] [address] [address] Ember Teague WBC 6.8 103/ul Normal 4.0-11.0 [facility] Comment on above: Performed By: #### R ENAL #### [facility] [address] [place] [address] Dr. Ember Teague PROF CHEM 8 (BAS METB)on Anion gap [Moles/Vol] 17.6 mmol/L Normal [facility] Comment on above: Performed By: #### C VDTBH #### [facility] [address] [place] [address] Dr. Ember Teague Calcium [Mass/Vol] 9.0 mg/dL Normal 8.5-10.1 [facility] Comment on above: Performed By: #### C VDTBH #### [facility] [address] [place] [address] Dr. Ember Teague Chloride [Moles/Vol] 104 mmol/L Normal 98-107 [facility] Comment on above: Performed By: #### C VDTBH #### [facility] [address] [place] [address] Dr. Ember Teague CO2 [Moles/Vol] 22.2 mmol/L Normal 21.0-32.0 [facility] Comment on above: Performed By: #### C VDTBH #### [facility] [address] [place] [address] Dr. Ember Teague Creatinine [Mass/Vol] 2.03 mg/dL Critically high 0.55-1.02 [facility] Comment on above: Performed By: #### C VDTBH #### [facility] [address] [address] [address] Ember Teague EGFR-AF MAURITANIAN 29 mL/min/1.73m2 Critically low >=60 [facility] Comment on above: Performed By: #### C VDTBH #### [facility] [address] [address] [address] Ember Teague EGFR-NON AF MAURITANIAN 24 mL/min/1.73m2 Critically low >=60 [facility] Comment on above: Performed By: #### C VDTBH #### [facility] [address] [address] [address] Ember Teague Glucose [Mass/Vol] 154 mg/dL Critically high 74-106 [facility] Comment on above: Performed By: #### C VDTBH #### [facility] [address] [address] [address] Ember Teague Potassium [Moles/Vol] 4.8 mmol/L Normal 3.5-5.1 [facility] Comment on above: Performed By: #### C VDTBH #### [facility] [address] [address] [address] Ember Teague Sodium [Moles/Vol] 139 mmol/L Normal 136-145 [facility] Comment on above: Performed By: #### C VDTBH #### [facility] [address] [address] [address] Ember Teague Urea nitrogen [Mass/Vol] 43.0 mg/dL Critically high 7.0-18.0 [facility] Comment on above: Performed By: #### C VDTBH #### [facility] [address] [address] [address] Ember Teague Urea nitrogen/Creatinine [Mass ratio] 21.2 mg/mg Normal [facility] Comment on above: Performed By: #### C VDTBH #### [facility] [address] [address] [address] Ember Teague CULTURE SPUTUMon 10-24-2022 CULTURE SPUTUM Culture Observations : Beta lactamase positive Isolate 1 Haemophilus influenzae Moderate growth of Normal [facility] Comment on above: Performed By: #### R ENAL #### [facility] [address] [address] [address] Ember Teague SPUTUM GRAM STAINon 10-24-19 COMMENTS Normal [facility] Comment on above: Performed By: #### R ENAL #### [facility] [address] [address] [address] Ember Teague DIPHTHEROIDS Normal [facility] Comment on above: Performed By: #### R ENAL #### [facility] [address] [address] [address] Ember Teague EPITHELIALS >25 Normal [facility] Comment on above: Performed By: #### R ENAL #### [facility] [address] [place] [address] Dr. Ember Teague FUNGAL ELEMENTS Normal [facility] Comment on above: Performed By: #### R ENAL #### [facility] [address] [address] [address] Ember Teague GRAM NEG BACILLI [facility] Comment on above: Performed By: #### R ENAL #### [facility] [address] [address] [address] Ember LOCKWOOD NEG DIPPLOCOCCI FEW Normal [facility] Comment on above: Performed By: #### R ENAL #### [facility] [address] [address] [address] Ember Teague GRAM POS BACILLI FEW Normal [facility] Comment on above: Performed By: #### R ENAL #### [facility] [address] [address] [address] Ember Teague GRAM POSITIVE COCCI MANY Normal [facility] Comment on above: Performed By: #### R ENAL #### [facility] [address] [place] [address] Dr. Ember Teague WBC (Bld) [#/Vol] 10*3/uL Normal [facility] Comment on above: Performed By: #### R ENAL #### [facility] [address] [place] [address] Dr. Ember Teague XR CHEST 2 Von [...] ANGELINA BRISENO Date: 2022-10-24 16:22 Normal [facility] FERRITINon 09-18-2022 Ferritin [Mass/Vol] 612.0 ng/mL Critically high 8.0-252.0 [facility] Comment on above: Performed By: #### F ERR, FETIBC #### [facility] [address] [place] [address] Dr. Ember Teague HEMOGRAM AND PLATELon 2021 Hematocrit (Bld) [Volume fraction] 28.1 % Critically low 36.0-48.0 [facility] Comment on above: Performed By: #### C BC #### [facility] [address] [address] [address] Ember Teague Hemoglobin (Bld) [Mass/Vol] 9.7 g/dL Critically low 12.0-16.0 [facility] Comment on above: Performed By: #### C BC #### [facility] [address] [address] [address] Ember Teague MCH (RBC) [Entitic mass] 31.3 pg Normal 26.7-34.0 [facility] Comment on above: Performed By: #### C BC #### [facility] [address] [place] [address] Dr. Ember Teague MCHC (RBC) [Mass/Vol] 34.5 g/dL Normal 29.9-35.2 [facility] Comment on above: Performed By: #### C BC #### [facility] [address] [place] [address] Dr. Ember Teague MCV (RBC) [Entitic vol] 90.6 fL Normal 81.0-99.0 [facility] Comment on above: Performed By: #### C BC #### [facility] [address] [place] [address] Dr. Ember Teague PLT 183 103/ul Normal 150-450 [facility] Comment on above: Performed By: #### C BC #### [facility] [address] [place] [address] Dr. Ember Teague RBC 3.10 106/ul Critically low 4.20-5.40 [facility] Comment on above: Performed By: #### C BC #### [facility] [address] [place] [address] Dr. Ember Teague WBC 7.2 103/ul Normal 4.0-11.0 [facility] Comment on above: Performed By: #### C BC #### [facility] [address] [place] [address] Dr. Ember Teague IRON AND TIBCon 09-18-2022 % SATURATION 36.0 % Normal [facility] Comment on above: Performed By: #### F ERR, FETIBC #### [facility] [address] [place] [address] Dr. Ember Teague Iron [Mass/Vol] 77.0 ug/dL Normal 50.0-170.0 [facility] Comment on above: Performed By: #### F ERR, FETIBC #### [facility] [address] [place] [address] Dr. Ember Teague TIBC DIRECT 214.0 ug/dL Critically low 250.0-450.0 [facility] Comment on above: Performed By: #### F ERR, FETIBC #### [facility] [address] [place] [address] Dr. Ember Teague RENAL FUNCTION PANELon 09-18 Albumin [Mass/Vol] 3.7 g/dL Normal 3.4-5.0 [facility] Comment on above: Performed By: #### R ENAL #### [facility] [address] [place] [address] Dr. Ember Teague Calcium [Mass/Vol] 9.5 mg/dL Normal 8.5-10.1 [facility] Comment on above: Performed By: #### R ENAL #### [facility] [address] [address] [address] Ember Teague Chloride [Moles/Vol] 103 mmol/L Normal 98-107 [facility] Comment on above: Performed By: #### R ENAL #### [facility] [address] [address] [address] Ember Teague CO2 [Moles/Vol] 21.1 mmol/L Normal 21.0-32.0 [facility] Comment on above: Performed By: #### R ENAL #### [facility] [address] [place] [address] Dr. Ember Teague Creatinine [Mass/Vol] 1.85 mg/dL Critically high 0.55-1.02 [facility] Comment on above: Performed By: #### R ENAL #### [facility] [address] [place] [address] Dr. Ember Teague EGFR-AF MAURITANIAN 32 mL/min/1.73m2 Critically low >=60 [facility] Comment on above: Performed By: #### R ENAL #### [facility] [address] [place] [address] Dr. Ember Teague EGFR-NON AF MAURITANIAN 26 mL/min/1.73m2 Critically low >=60 [facility] Comment on above: Performed By: #### R ENAL #### [facility] [address] [address] [address] Ember Teague Glucose [Mass/Vol] 183 mg/dL Critically high 74-106 [facility] Comment on above: Performed By: #### R ENAL #### [facility] [address] [address] [address] Ember Teague Phosphate [Mass/Vol] 3.7 mg/dL Normal 2.6-4.7 [facility] Comment on above: Performed By: #### R ENAL #### [facility] [address] [place] [address] Dr. Ember Teague Potassium [Moles/Vol] 4.9 mmol/L Normal 3.5-5.1 [facility] Comment on above: Performed By: #### R ENAL #### [facility] [address] [place] [address] Dr. Ember Teague Sodium [Moles/Vol] 138 mmol/L Normal 136-145 [facility] Comment on above: Performed By: #### R ENAL #### [facility] [address] [place] [address] Dr. Ember Teague Urea nitrogen [Mass/Vol] 40.0 mg/dL Critically high 7.0-18.0 [facility] Comment on above: Performed By: #### R ENAL #### [facility] [address] [place] [address] Dr. Ember Teague CULTURE URINEon 09-15-2022 CULTURE [...] Trimethoprim/Sulfamet hoxazole <=20 S F Normal [facility] Comment on above: Performed By: #### R ENAL #### [facility] [address] [place] [address] Dr. Ember Teague BNPon 09-11-2022 Natriuretic peptide B (Bld) [Mass/Vol] 408.0 pg/mL Normal <=1,800.0 [facility] Comment on above: Performed By: #### P THINT #### [facility] [address] [place] [address] Dr. Ember Teague CBC AUTO DIFFon 09-11-2022 BASO # 0.0 103/ul Normal 0.0-0.1 [facility] Comment on above: Performed By: #### C BC #### [facility] [address] [address] [address] Ember Teague Basophils/100 WBC (Bld) 0.3 % Normal 0.2-2.0 [facility] Comment on above: Performed By: #### C BC #### [facility] [address] [place] [address] Dr. Ember Teague EO # 0.1 103/ul Normal 0.0-0.7 [facility] Comment on above: Performed By: #### C BC #### [facility] [address] [place] [address] Dr. Ember Teague Eosinophils/100 WBC (Bld) 1.9 % Normal 0.9-7.0 [facility] Comment on above: Performed By: #### C BC #### [facility] [address] [place] [address] Dr. Ember Teague Erythrocyte distribution width (RBC) [Ratio] 15.2 % Critically high 11.0-15.0 [facility] Comment on above: Performed By: #### C BC #### [facility] [facility] [address] [place] [address] Dr. Ember Teague Hematocrit (Bld) [Volume fraction] 26.6 % Critically low 36.0-48.0 [facility] Comment on above: Performed By: #### C BC #### [facility] [address] [place] [address] Dr. Ember Teague Hemoglobin (Bld) [Mass/Vol] 9.0 g/dL Critically low 12.0-16.0 [facility] Comment on above: Performed By: #### C BC #### [facility] [address] [place] [address] Dr. Ember Teague IG # 0.02 10e3/ul Normal 0.00-0.03 [facility] Comment on above: Performed By: #### C BC #### [facility] [address] [place] [address] Dr. Ember Teague IG % 0.3 % Normal 0.0-0.5 [facility] Comment on above: Performed By: #### C BC #### [facility] [address] [place] [address] Dr. Ember Teague LYMPH # 1.9 103/ul Normal 1.2-3.8 [facility] Comment on above: Performed By: #### C BC #### [facility] [address] [place] [address] Dr. Ember Teague Lymphocytes/100 WBC (Bld) 32.4 % Normal 20.5-60.0 [facility] Comment on above: Performed By: #### C BC #### [facility] [address] [place] [address] Dr. Ember Teague MANUAL DIFF REQ NO Normal [facility] Comment on above: Performed By: #### C BC #### [facility] [address] [place] [address] Dr. Ember Teague MCH (RBC) [Entitic mass] 31.1 pg Normal 26.7-34.0 [facility] Comment on above: Performed By: #### C BC #### [facility] [address] [place] [address] Dr. Ember Teague MCHC (RBC) [Mass/Vol] 33.8 g/dL Normal 29.9-35.2 [facility] Comment on above: Performed By: #### C BC #### [facility] [address] [place] [address] Dr. Ember Teague MCV (RBC) [Entitic vol] 92.0 fL Normal 81.0-99.0 [facility] Comment on above: Performed By: #### C BC #### [facility] [address] [place] [address] Dr. Ember Teague MONO # 0.6 103/ul Normal 0.3-0.8 [facility] Comment on above: Performed By: #### C BC #### [facility] [address] [place] [address] Dr. Ember Teague Monocytes/100 WBC (Bld) 10.0 % Normal 1.7-12.0 [facility] Comment on above: Performed By: #### C BC #### [facility] [address] [address] [address] Ember Teague NEUT # 3.2 103/ul Normal 1.4-6.5 [facility] Comment on above: Performed By: #### C BC #### [facility] [address] [address] [address] Ember Teague Neutrophils/100 WBC (Bld) 55.1 % Normal 43.0-75.0 [facility] Comment on above: Performed By: #### C BC #### [facility] [address] [address] [address] Ember Teague Platelet mean volume (Bld) [Entitic vol] 9.4 fL Critically low 9.5-13.5 [facility] Comment on above: Performed By: #### C BC #### [facility] [address] [place] [address] Dr. Ember Teague PLT 196 103/ul Normal 150-450 [facility] Comment on above: Performed By: #### C BC #### [facility] [address] [place] [address] Dr. Ember Teague RBC 2.89 106/ul Critically low 4.20-5.40 [facility] Comment on above: Performed By: #### C BC #### [facility] [address] [place] [address] Dr. Ember Teague WBC 5.8 103/ul Normal 4.0-11.0 [facility] Comment on above: Performed By: #### C BC #### [facility] [address] [place] [address] Dr. Ember Teague PROF 14(COMP METB)on 022 Albumin [Mass/Vol] 3.7 g/dL Normal 3.4-5.0 [facility] Comment on above: Performed By: #### P THINT #### [facility] [address] [place] [address] Dr. Ember Teague Albumin/Globulin [Mass ratio] 1.0 {ratio} Normal [facility] Comment on above: Performed By: #### P THINT #### [facility] [address] [address] [address] Ember Teague ALP [Catalytic activity/Vol] 79 U/L Normal 46-116 [facility] Comment on above: Performed By: #### P THINT #### [facility] [address] [address] [address] Ember Teague ALT [Catalytic activity/Vol] 24 U/L Normal 14-59 [facility] Comment on above: Performed By: #### P THINT #### [facility] [address] [address] [address] Ember Teague Anion gap [Moles/Vol] 12.8 mmol/L Normal [facility] Comment on above: Performed By: #### P THINT #### [facility] [address] [address] [address] Ember Teague AST [Catalytic activity/Vol] 17 U/L Normal 15-37 [facility] Comment on above: Performed By: #### P THINT #### [facility] [address] [address] [address] Ember Teague Bilirubin [Mass/Vol] 0.5 mg/dL Normal 0.2-1.0 [facility] Comment on above: Performed By: #### P THINT #### [facility] [address] [address] [address] Ember Teague Calcium [Mass/Vol] 9.4 mg/dL Normal 8.5-10.1 [facility] Comment on above: Performed By: #### P THINT #### [facility] [address] [address] [address] Ember Teague Chloride [Moles/Vol] 101 mmol/L Normal 98-107 [facility] Comment on above: Performed By: #### P THINT #### [facility] [address] [address] [address] Ember Teague CO2 [Moles/Vol] 24.3 mmol/L Normal 21.0-32.0 [facility] Comment on above: Performed By: #### P THINT #### [facility] [address] [address] [address] Ember Teague Creatinine [Mass/Vol] 2.84 mg/dL Critically high 0.55-1.02 [facility] Comment on above: Performed By: #### P THINT #### [facility] [address] [address] [address] Ember Teague EGFR-AF MAURITANIAN 20 mL/min/1.73m2 Critically low >=60 [facility] Comment on above: Performed By: #### P THINT #### [facility] [address] [address] [address] Ember Teague EGFR-NON AF MAURITANIAN 16 mL/min/1.73m2 Critically low >=60 [facility] Comment on above: Performed By: #### P THINT #### [facility] [address] [address] [address] Ember Teague Globulin (S) [Mass/Vol] 3.7 g/dL Normal [facility] Comment on above: Performed By: #### P THINT #### [facility] [address] [address] [address] Ember Teague Glucose [Mass/Vol] 174 mg/dL Critically high 74-106 [facility] Comment on above: Performed By: #### P THINT #### [facility] [address] [address] [address] Ember Teague Potassium [Moles/Vol] 5.1 mmol/L Normal 3.5-5.1 [facility] Comment on above: Performed By: #### P THINT #### [facility] [address] [address] [address] Ember Teague Protein [Mass/Vol] 7.4 g/dL Normal 6.4-8.2 [facility] Comment on above: Performed By: #### P THINT #### [facility] [address] [address] [address] Ember Teague Sodium [Moles/Vol] 133 mmol/L Critically low 136-145 [facility] Comment on above: Performed By: #### P THINT #### [facility] [address] [place] [address] Dr. Ember Teague Urea nitrogen [Mass/Vol] 68.0 mg/dL Critically high 7.0-18.[address] [facility] Comment on above: Performed By: #### P THINT #### [facility] [address] [place] [address] Dr. Ember Teague Urea nitrogen/Creatinine [Mass ratio] 23.9 mg/mg Normal [facility] Comment on above: Performed By: #### P THINT #### [facility] [address] [place] [address] Dr. Ember Teague TROPONIN, HIGH SENSITIVITYon 09-11-2022 HSTROP 9.1 pg/mL Normal 4.0-51.[address] [facility] Comment on above: Result Comment: CUT- OFF POINTS HAVE BEEN ESTABLISHED BASED ON THE FOURTH UNIVERSAL DEFINITIONS OF MYOCARDIAL INFARCTION. THE UPPER REFERENCE LIMIT (URL) OF TROPONIN, DEFINED THE 99TH PERCENTILE OF cTnI DISTRIBUTION IN A REFERENCE POPULATION, HAS BEEN CONFIRMED THE DECISION THRESHOLD FOR [place] DIAGNOSIS. Performed By: #### P THINT #### [facility] [address] [place] [address] Dr. Ember Teague UA RANDOM W/MICROSCOPICon BACTERIA NONE SEEN Normal NONE SEEN [facility] Comment on above: Performed By: #### C VDTBH #### [facility] [address] [place] [address] Dr. Ember Teague Bilirubin Ql (U) Negative Normal NEGATIVE [facility] Comment on above: Performed By: #### C VDTBH #### [facility] [address] [place] [address] Dr. Ember Teague CAST NONE SEEN Normal NONE SEEN [facility] Comment on above: Performed By: #### C VDTBH #### [facility] [address] [place] [address] Dr. Ember Teague Clarity (U) CLEAR Normal CLEAR [facility] Comment on above: Performed By: #### C VDTBH #### [facility] [address] [place] [address] Dr. Ember Teague Color (U) LT. YELLOW Normal YELLOW [facility] Comment on above: Performed By: #### C VDTBH #### [facility] [address] [address] [address] Ember Teague Crystals LM Nom (Urine sed) NONE SEEN Normal NONE SEEN [facility] Comment on above: Performed By: #### C VDTBH #### [facility] [address] [address] [address] Ember Teague Epithelial cells LM Ql (Urine sed) FEW Abnormal NONE SEEN /RARE [facility] Comment on above: Performed By: #### C VDTBH #### [facility] [address] [address] [address] Ember Teague Glucose Ql (U) Negative Normal NEGATIVE [facility] Comment on above: Performed By: #### C VDTBH #### [facility] [address] [place] [address] Dr. Ember Teague Hemoglobin Ql (U) Negative Normal NEGATIVE [facility] Comment on above: Performed By: #### C VDTBH #### [facility] [address] [address] [address] Ember Teague Ketones Ql (U) Negative Normal NEGATIVE [facility] Comment on above: Performed By: #### C VDTBH #### [facility] [address] [place] [address] Dr. Ember Teague LEUKOCYTES Negative Normal NEGATIVE [facility] Comment on above: Performed By: #### C VDTBH #### [facility] [address] [address] [address] Ember Teague MUCOUS NONE SEEN Normal NONE SEEN [facility] Comment on above: Performed By: #### C VDTBH #### [facility] [address] [address] [address] Ember Teague Nitrite Ql (U) Negative Normal NEGATIVE [facility] Comment on above: Performed By: #### C VDTBH #### [facility] [address] [place] [address] Dr. Ember Teague pH (U) 5.5 [pH] Normal 5-[address] [facility] Comment on above: Performed By: #### C VDTBH #### [facility] [address] [place] [address] Dr. Ember Teague RBC NONE SEEN Abnormal 0-2 [facility] Comment on above: Performed By: #### C VDTBH #### [facility] [address] [place] [address] Dr. Ember Teague SPEC GRAVITY 1.010 Normal 1.005-<=1.025 [facility] [place] Comment on above: Performed By: #### C VDTBH #### [facility] [address] [place] [address] Dr. Ember Teague UA PROTEIN Negative Normal NEGATIVE/ TRACE [facility] Comment on above: Performed By: #### C VDTBH #### [facility] [address] [place] [address] Dr. Ember Teague Urobilinogen Qn (U) 0.2 {Esau'U}/dL Normal 0.2 - 1. 0 [facility] Comment on above: Performed By: #### C VDTBH #### [facility] [address] [place] [address] Dr. Ember Teague WBC NONE SEEN Normal NONE SEEN [facility] Comment on above: Performed By: #### C VDTBH #### [facility] [address] [place] [address] Dr. Ember Teague CBC AUTO DIFFon 08-13-2022 BASO # 0.0 103/ul Normal 0.0-0.1 [facility] Comment on above: Performed By: #### C BC #### [facility] [address] [place] [address] Dr. Ember Teague Basophils/100 WBC (Bld) 0.3 % Normal 0.2-2.[address] [facility] Comment on above: Performed By: #### C BC #### [facility] [address] [place] [address] Dr. Ember Teague EO # 0.2 103/ul Normal 0.0-0.[address] [facility] Comment on above: Performed By: #### C BC #### [facility] [address] [place] [address] Dr. Ember Teague Eosinophils/100 WBC (Bld) 3.7 % Normal 0.9-7.[address] [facility] Comment on above: Performed By: #### C BC #### [facility] [address] [place] [address] Dr. Ember Teague Erythrocyte distribution width (RBC) [Ratio] 15.0 % Normal 11.0-15.[address] [facility] Comment on above: Performed By: #### C BC #### [facility] [address] [place] [address] Dr. Ember Teague Hematocrit (Bld) [Volume fraction] 27.9 % Critically low 36.0-48.0 [facility] Comment on above: Performed By: #### C BC #### [facility] [address] [place] [address] Dr. Ember Teague Hemoglobin (Bld) [Mass/Vol] 9.7 g/dL Critically low 12.0-16.[address] [facility] Comment on above: Performed By: #### C BC #### [facility] [address] [place] [address] Dr. Ember Teague IG # 0.01 10e3/ul Normal 0.00-0.03 [facility] Comment on above: Performed By: #### C BC #### [facility] [address] [place] [address] Dr. Ember Teague IG % 0.2 % Normal 0.0-0.[address] [facility] Comment on above: Performed By: #### C BC #### [facility] [address] [place] [address] Dr. Ember Teague LYMPH # 1.9 103/ul Normal 1.2-3.[address] [facility] Comment on above: Performed By: #### C BC #### [facility] [address] [place] [address] Dr. Ember Teague Lymphocytes/100 WBC (Bld) 32.2 % Normal 20.5-60.[address] [facility] Comment on above: Performed By: #### C BC #### [facility] [address] [place] [address] Dr. Ember Teague MANUAL DIFF REQ NO Normal [facility] Comment on above: Performed By: #### C BC #### [facility] [address] [place] [address] Dr. Ember Teague MCH (RBC) [Entitic mass] 31.4 pg Normal 26.7-34.0 [facility] Comment on above: Performed By: #### C BC #### [facility] [address] [place] [address] Dr. Ember Teague MCHC (RBC) [Mass/Vol] 34.8 g/dL Normal 29.9-35.2 [facility] Comment on above: Performed By: #### C BC #### [facility] [address] [place] [address] Dr. Ember Teague MCV (RBC) [Entitic vol] 90.3 fL Normal 81.0-99.0 [facility] Comment on above: Performed By: #### C BC #### [facility] [address] [place] [address] Dr. Ember Teague MONO # 0.6 103/ul Normal 0.3-0.8 [facility] Comment on above: Performed By: #### C BC #### [facility] [address] [place] [address] Dr. Ember Teague Monocytes/100 WBC (Bld) 9.8 % Normal 1.7-12.[address] [facility] Comment on above: Performed By: #### C BC #### [facility] [address] [place] [address] Dr. Ember Teague NEUT # 3.2 103/ul Normal 1.4-6.[address] [facility] Comment on above: Performed By: #### C BC #### [facility] [address] [place] [address] Dr. Ember Teague Neutrophils/100 WBC (Bld) 53.8 % Normal 43.0-75.[address] [facility] Comment on above: Performed By: #### C BC #### [facility] [address] [place] [address] Dr. Ember Teague Platelet mean volume (Bld) [Entitic vol] 10.0 fL Normal 9.5-13.5 [facility] Comment on above: Performed By: #### C BC #### [facility] [address] [place] [address] Dr. Ember Teague PLT 194 103/ul Normal 150-[address] [facility] Comment on above: Performed By: #### C BC #### [facility] [address] [place] [address] Dr. Ember Teague RBC 3.09 106/ul Critically low 4.20-5.40 [facility] Comment on above: Performed By: #### C BC #### [facility] [address] [place] [address] Dr. Ember Teague WBC 6.0 103/ul Normal 4.0-11.0 [facility] Comment on above: Performed By: #### C BC #### [facility] [address] [place] [address] Dr. Ember Teague PTH INTACTon 06-26-2022 PTH, Intact 39 pg/mL Normal 15-[address] [facility] Comment on above: Performed By: #### P THINT #### [facility] [address] [place] [address] Dr. Ember Teague CBC AUTO DIFFon 06-25-2022 BASO # 0.1 103/ul Normal 0.0-0.1 [facility] Comment on above: Performed By: #### C VDTBH #### [facility] [address] [place] [address] Dr. Ember Teague Basophils/100 WBC (Bld) 0.6 % Normal 0.2-2.[address] [facility] Comment on above: Performed By: #### C VDTBH #### [facility] [address] [place] [address] Dr. Ember Teague EO # 0.2 103/ul Normal 0.0-0.[address] [facility] Comment on above: Performed By: #### C VDTBH #### [facility] [address] [place] [address] Dr. Ember Teague Eosinophils/100 WBC (Bld) 3.0 % Normal 0.9-7.0 [facility] Comment on above: Performed By: #### C VDTBH #### [facility] [address] [place] [address] Dr. Ember Teague Erythrocyte distribution width (RBC) [Ratio] 14.2 % Normal 11.0-15.0 [facility] Comment on above: Performed By: #### C VDTBH #### [facility] [address] [place] [address] Dr. Ember Teague Hematocrit (Bld) [Volume fraction] 30.9 % Critically low 36.0-48.0 [facility] Comment on above: Performed By: #### C VDTBH #### [facility] [address] [place] [address] Dr. Ember Teague Hemoglobin (Bld) [Mass/Vol] 10.6 g/dL Critically low 12.0-16.0 [facility] Comment on above: Performed By: #### C VDTBH #### [facility] [address] [place] [address] Dr. Ember Teague IG # 0.04 10e3/ul Critically high 0.00-0.03 [facility] Comment on above: Performed By: #### C VDTBH #### [facility] [address] [place] [address] Dr. Ember Teague IG % 0.5 % Normal 0.0-0.[address] [facility] Comment on above: Performed By: #### C VDTBH #### [facility] [address] [place] [address] Dr. Ember Teague LYMPH # 2.2 103/ul Normal 1.2-3.[address] [facility] Comment on above: Performed By: #### C VDTBH #### [facility] [address] [place] [address] Dr. Ember Teague Lymphocytes/100 WBC (Bld) 27.0 % Normal 20.5-60.0 [facility] Comment on above: Performed By: #### C VDTBH #### [facility] [address] [place] [address] Dr. Ember Teague MANUAL DIFF REQ NO Normal [facility] Comment on above: Performed By: #### C VDTBH #### [facility] [address] [place] [address] Dr. Ember Teague MCH (RBC) [Entitic mass] 31.2 pg Normal 26.7-34.[address] [facility] Comment on above: Performed By: #### C VDTBH #### [facility] [address] [place] [address] Dr. Ember Teague MCHC (RBC) [Mass/Vol] 34.3 g/dL Normal 29.9-35.[address] [facility] Comment on above: Performed By: #### C VDTBH #### [facility] [address] [place] [address] Dr. Ember Teague MCV (RBC) [Entitic vol] 90.9 fL Normal 81.0-99.0 [facility] Comment on above: Performed By: #### C VDTBH #### [facility] [address] [place] [address] Dr. Ember Teague MONO # 0.7 103/ul Normal 0.3-0.8 [facility] Comment on above: Performed By: #### C VDTBH #### [facility] [address] [place] [address] Dr. Ember Teague Monocytes/100 WBC (Bld) 9.2 % Normal 1.7-12.0 [facility] Comment on above: Performed By: #### C VDTBH #### [facility] [address] [place] [address] Dr. Ember Teague NEUT # 4.8 103/ul Normal 1.4-6.[address] [facility] Comment on above: Performed By: #### C VDTBH #### [facility] [address] [place] [address] Dr. Ember Teague Neutrophils/100 WBC (Bld) 59.7 % Normal 43.0-75.[address] [facility] Comment on above: Performed By: #### C VDTBH #### [facility] [address] [place], [place] [address] Dr. Ember Teague Platelet mean volume (Bld) [Entitic vol] 9.3 fL Critically low 9.5-13.5 [facility] Comment on above: Performed By: #### C VDTBH #### [facility] [address] [address] [address] Ember Teague PLT 227 103/ul Normal 150-[address] [facility] Comment on above: Performed By: #### C VDTBH #### [facility] [address] [address] [address] Ember Teague RBC 3.40 106/ul Critically low 4.20-5.40 [facility] Comment on above: Performed By: #### C VDTBH #### [facility] [address] [address] [address] Ember Teague WBC 8.0 103/ul Normal 4.0-11.[address] [facility] Comment on above: Performed By: #### C VDTBH #### [facility] [address] [address] [address] Ember Teague MRI LSPINE WO CONon [...] YANET HUERTA Date: 2022-06-25 08:45 Normal [facility] RENAL FUNCTION PANELon 06-25 Albumin [Mass/Vol] 3.9 g/dL Normal 3.4-5.0 [facility] Comment on above: Performed By: #### P THINT #### [facility] [address] [address] [address] Ember Teague Calcium [Mass/Vol] 9.5 mg/dL Normal 8.5-10.1 [facility] Comment on above: Performed By: #### P THINT #### [facility] [address] [address] [address] Ember Teague Chloride [Moles/Vol] 102 mmol/L Normal 98-107 [facility] Comment on above: Performed By: #### P THINT #### [facility] [address] [address] [address] Ember Teague CO2 [Moles/Vol] 23.8 mmol/L Normal 21.0-32.0 [facility] Comment on above: Performed By: #### P THINT #### [facility] [address] [address] [address] Ember Teague Creatinine [Mass/Vol] 1.75 mg/dL Critically high 0.55-1.02 [facility] Comment on above: Performed By: #### P THINT #### [facility] [address] [address] [address] Ember Teague EGFR-AF MAURITANIAN 34 mL/min/1.73m2 Critically low >=60 [facility] Comment on above: Performed By: #### P THINT #### [facility] [address] [address] [address] Ember Teague EGFR-NON AF MAURITANIAN 28 mL/min/1.73m2 Critically low >=60 [facility] Comment on above: Performed By: #### P THINT #### [facility] [address] [address] [address] Ember Teague Glucose [Mass/Vol] 199 mg/dL Critically high 74-106 [facility] Comment on above: Performed By: #### P THINT #### [facility] [address] [address] [address] Ember Teague Phosphate [Mass/Vol] 4.3 mg/dL Normal 2.6-4.7 [facility] Comment on above: Performed By: #### P THINT #### [facility] [address] [place] [address] Dr. Ember Teague Potassium [Moles/Vol] 4.9 mmol/L Normal 3.5-5.1 [facility] Comment on above: Performed By: #### P THINT #### [facility] [address] [place] [address] Dr. Ember Teague Sodium [Moles/Vol] 135 mmol/L Critically low 136-145 [facility] Comment on above: Performed By: #### P THINT #### [facility] [address] [place] [address] Dr. Ember Teague Urea nitrogen [Mass/Vol] 34.0 mg/dL Critically high 7.0-18.0 [facility] Comment on above: Performed By: #### P THINT #### [facility] [address] [place] [address] Dr. Ember Teague VITAMIN D 25 OHon 06-25-2022 VIT D 25-OH 40.6 ng/mL Normal [facility] Comment on above: Performed By: #### P THINT #### [facility] [address] [place] [address] Dr. Ember Teague VIT D RANGES SEE BELOW Normal [facility] Comment on above: Result Comment: <20 ng/mL Vit D deficient 20 - <30 ng/mL Vit D insufficient 30 - 100 ng/mL Vit D sufficient >100 ng/mL Potential Toxicity Performed By: #### P THINT #### [facility] [address] [place] [id number] Ember Teague Covid-19 PCR ([facility])on 06-07 SARS-CoV-2 (COVID-19) RNA ALEXX+probe Ql (Unsp spec) Not detected Normal NOT DETECTED [facility] Comment on above: Result Comment: This test is not yet approved or cleared by the [place] FDA. When there are no FDA-approved or cleared tests available, and other criteria are met, FDA can make tests available under an emergency access mechanism called an Emergency Use Authorization (EUA). The EUA for this test is supported by the [place] of Health and Human Service's (HHS's) declaration [...] consistent with SARS-CoV-2. Performed By: #### C VDTB #### [facility] [address] [place] [id number] LSPINE WO CONon [...] by: YANET HUERTA Date: 2022-06-01 18:02 Normal [facility] XR LSPINE MIN 4 VIEWSon 05-07 XR [...] by: YANET HUERTA Date: 2022-05-21 15:25 Normal [facility] PTH INTACTon 05-03-2022 PTH, Intact 60 pg/mL Normal 15-65 [facility] Comment on above: Performed By: #### C VDTB #### [facility] [address] [place] [address] Dr. Ember Teague VIT D 25-OH LABCORPon 2021 Vitamin D, 25-Hydroxy 26.1 ng/mL Critically low 30.0-100.[address] [facility] Comment on above: Result Comment: Sara min D deficiency has been defined by the [place] of Medicine and an Endocrine Society practice guideline as a level of serum 25-OH vitamin D less than 20 ng/mL (1,2). The Endocrine Society went on to further define vitamin D insufficiency as a level between 21 and 29 ng/mL (2). 1. IOM ([place] of Medicine). 2010. Dietary reference intakes for calcium and D. [place]: The National Academies Press. 2. Sherice MF, Wendy WILSON, Huan ZHONG, et al. Evaluation, treatment, and prevention of vitamin D deficiency: an Endocrine Society clinical practice guideline. JCEM. 2010; 96(7):1911-30. Performed By: #### R ENAL #### [facility] [address] [place] [address] Dr. Ember Teague FERRITINon 05-02-2022 Ferritin [Mass/Vol] 590.0 ng/mL Critically high 8.0-252.0 [facility] Comment on above: Performed By: #### R ENAL #### [facility] [address] [place] [address] Dr. Ember Teague HEMOGRAM AND PLATELon 2021 Hematocrit (Bld) [Volume fraction] 28.4 % Critically low 36.0-48.[address] [facility] Comment on above: Performed By: #### C VDTBH #### [facility] [address] [place] [address] Dr. Ember Teague Hemoglobin (Bld) [Mass/Vol] 9.6 g/dL Critically low 12.0-16.[address] [facility] Comment on above: Performed By: #### C VDTBH #### [facility] [address] [place] [address] Dr. Ember Teauge MCH (RBC) [Entitic mass] 31.0 pg Normal 26.7-34.0 [facility] Comment on above: Performed By: #### C VDTBH #### [facility] [address] [place] [address] Dr. Ember Teague MCHC (RBC) [Mass/Vol] 33.8 g/dL Normal 29.9-35.[address] [facility] Comment on above: Performed By: #### C VDTBH #### [facility] [address] [place] [address] Dr. Ember Teague MCV (RBC) [Entitic vol] 91.6 fL Normal 81.0-99.0 [facility] Comment on above: Performed By: #### C VDTBH #### [facility] [address] [place] [address] Dr. Ember Teague PLT 189 103/ul Normal 150-450 [facility] Comment on above: Performed By: #### C VDTBH #### [facility] [address] [place] [address] Dr. Ember Teague RBC 3.10 106/ul Critically low 4.20-5.40 [facility] Comment on above: Performed By: #### C VDTBH #### [facility] [address] [place] [address] Dr. Ember Teague WBC 6.2 103/ul Normal 4.0-11.[address] [facility] Comment on above: Performed By: #### C VDTBH #### [facility] [address] [place] [address] Dr. Ember Teague IRON AND TIBCon 05-02-2022 % SATURATION 34.3 % Normal [facility] Comment on above: Performed By: #### R ENAL #### [facility] [address] [place] [address] Dr. Ember Teague Iron [Mass/Vol] 69.0 ug/dL Normal 50.0-170.0 [facility] Comment on above: Performed By: #### R ENAL #### [facility] [address] [place] [address] Dr. Ember Teague TIBC DIRECT 201.0 ug/dL Critically low 250.0-450.0 [facility] Comment on above: Performed By: #### R ENAL #### [facility] [address] [place] [address] Dr. Ember Teague MAGNESIUMon 05-02-2022 Magnesium [Mass/Vol] 1.7 mg/dL Critically low 1.8-2.4 [facility] Comment on above: Performed By: #### C VDTBH #### [facility] [address] [address] [address] Ember Teague RENAL FUNCTION PANELon 05-02 Albumin [Mass/Vol] 3.6 g/dL Normal 3.4-5.0 [facility] Comment on above: Performed By: #### C VDTBH #### [facility] [address] [place] [address] Dr. Ember Teague Calcium [Mass/Vol] 9.2 mg/dL Normal 8.5-10.1 [facility] Comment on above: Performed By: #### C VDTBH #### [facility] [address] [place] [address] Dr. Ember Teague Chloride [Moles/Vol] 107 mmol/L Normal 98-[address] [facility] Comment on above: Performed By: #### C VDTBH #### [facility] [address] [place] [address] Dr. Ember Teague CO2 [Moles/Vol] 21.2 mmol/L Normal 21.0-32.0 [facility] Comment on above: Performed By: #### C VDTBH #### [facility] [address] [place] [address] Dr. Ember Teague Creatinine [Mass/Vol] 1.75 mg/dL Critically high 0.55-1.02 [facility] Comment on above: Performed By: #### C VDTBH #### [facility] [address] [place] [address] Dr. Ember Teague EGFR-AF MAURITANIAN 34 mL/min/1.73m2 Critically low >=[address] [facility] Comment on above: Performed By: #### C VDTBH #### [facility] [address] [place] [address] Dr. Ember Teague EGFR-NON AF MAURITANIAN 28 mL/min/1.73m2 Critically low >=[address] [facility] Comment on above: Performed By: #### C VDTBH #### [facility] [address] [place] [address] Dr. Ember Teague Glucose [Mass/Vol] 193 mg/dL Critically high 74-106 [facility] Comment on above: Performed By: #### C VDTBH #### [facility] [address] [address] [address] Ember Teague Phosphate [Mass/Vol] 4.2 mg/dL Normal 2.6-4.7 [facility] Comment on above: Performed By: #### C VDTBH #### [facility] [address] [place] [address] Dr. Ember Teague Potassium [Moles/Vol] 5.1 mmol/L Normal 3.5-5.1 [facility] Comment on above: Performed By: #### C VDTBH #### [facility] [address] [place] [address] Dr. Ember Teague Sodium [Moles/Vol] 139 mmol/L Normal 136-145 [facility] Comment on above: Performed By: #### C VDTBH #### [facility] [address] [place] [address] Dr. Ember Teague Urea nitrogen [Mass/Vol] 34.0 mg/dL Critically high 7.0-18.0 [facility] Comment on above: Performed By: #### C VDTBH #### [facility] [address] [place] [address] Dr. Ember Teague UA RANDOM W/MICROSCOPICon BACTERIA SMALL Abnormal NONE SEEN [facility] Comment on above: Performed By: #### C VDTBH #### [facility] [address] [place] [address] Dr. Ember Teague Bilirubin Ql (U) Negative Normal NEGATIVE [facility] Comment on above: Performed By: #### C VDTBH #### [facility] [address] [place] [address] Dr. Ember Teague CAST NONE SEEN Normal NONE SEEN [facility] Comment on above: Performed By: #### C VDTBH #### [facility] [address] [place] [address] Dr. Ember Teague Clarity (U) CLEAR Normal CLEAR [facility] Comment on above: Performed By: #### C VDTBH #### [facility] [address] [place] [address] Dr. Ember Teague Color (U) LT. YELLOW Normal YELLOW [facility] Comment on above: Performed By: #### C VDTBH #### [facility] [address] [place] [address] Dr. Ember Teague Crystals LM Nom (Urine sed) NONE SEEN Normal NONE SEEN [facility] Comment on above: Performed By: #### C VDTBH #### [facility] [address] [place] [address] Dr. Ember Teague Epithelial cells LM Ql (Urine sed) MODERATE Abnormal NONE SEEN /RARE [facility] Comment on above: Performed By: #### C VDTBH #### [facility] [address] [place] [address] Dr. Ember Teague Glucose Ql (U) Negative Normal NEGATIVE [facility] Comment on above: Performed By: #### C VDTBH #### [facility] [address] [place] [address] Dr. Ember Teague Hemoglobin Ql (U) Negative Normal NEGATIVE [facility] Comment on above: Performed By: #### C VDTBH #### [facility] [address] [place] [address] Dr. Ember Teague Ketones Ql (U) Negative Normal NEGATIVE [facility] Comment on above: Performed By: #### C VDTBH #### [facility] [address] [place] [address] Dr. Ember Teague LEUKOCYTES TRACE Abnormal NEGATIVE [facility] Comment on above: Performed By: #### C VDTBH #### [facility] [address] [place] [address] Dr. Ember Teague MUCOUS NONE SEEN Normal NONE SEEN [facility] Comment on above: Performed By: #### C VDTBH #### [facility] [address] [place] [address] Dr. Ember Teague Nitrite Ql (U) Negative Normal NEGATIVE [facility] Comment on above: Performed By: #### C VDTBH #### [facility] [address] [place] [address] Dr. Ember Teague pH (U) 5.0 [pH] Normal 5-[address] [facility] Comment on above: Performed By: #### C VDTBH #### [facility] [address] [place] [address] Dr. Ember Teague RBC NONE SEEN Abnormal 0-[address] [facility] Comment on above: Performed By: #### C VDTBH #### [facility] [address] [place] [address] Dr. Ember Teague SPEC GRAVITY 1.015 Normal 1.005-<=1.025 [facility] Comment on above: Performed By: #### C VDTBH #### [facility] [address] [place] [address] Dr. Ember Teague UA PROTEIN TRACE Normal NEGATIVE/ TRACE [facility] Comment on above: Performed By: #### C VDTBH #### [facility] [address] [place] [address] Dr. Ember Teague Urobilinogen Qn (U) 0.2 {Esau'U}/dL Normal 0.2 - 1. [address] [facility] Comment on above: Performed By: #### C VDTBH #### [facility] [address] [place] [address] Dr. Ember Teague WBC 0-2 Abnormal NONE SEEN [facility] Comment on above: Performed By: #### C VDTBH #### [facility] [address] [place] [address] Dr. Ember Teague URIC ACID SERUMon 05-02-2022 Urate [Mass/Vol] 4.4 mg/dL Normal 2.6-6.0 [facility] Comment on above: Performed By: #### C BC #### [facility] [address] [place] [address] Dr. Ember Teague URINE T PROTEIN CREAT RATIOo n 05-02-2022 Protein (U) [Mass/Vol] 33.7 mg/dL Critically high <=12.0 [facility] Comment on above: Performed By: #### C VDTBH #### [facility] [address] [address] [address] Ember Teague UR PROT CREAT RAT 0.69 Normal [facility] Comment on above: Performed By: #### C VDTBH #### [facility] [address] [address] [address] Ember Teague URINE CREAT 48.93 mg/dL Normal 20.00-300.00 [facility] Comment on above: Performed By: #### C VDTBH #### [facility] [address] [address] [address] Ember Teague Vital Signs Date Time Vital Sign Value Performing Clinician Facility 11-18-2023 10:00-0500 Body height 168.91 cm Ron Doreen Other [facility] Other 11-18-2023 10:00-0500 Body mass index (BMI) [Ratio] 29.85 kg/m2 Ron Doreen Other [facility] Other 11-18-2023 10:00-0500 Body temperature 97.3 [degF] Ron Odreen Other [facility] Other 11-18-2023 10:00-0500 Body weight 85.19 kg Ron Doreen Other [facility] Other 11-18-2023 10:00-0500 Diastolic blood pressure 79 mm[Hg] Ron Doreen Other [facility] Other 11-18-2023 10:00-0500 Respiratory rate 18 /min Ron Doreen Other [facility] Other 11-18-2023 10:00-0500 SaO2% (BldA) [Mass fraction] 98 % Ron Doreen Other [facility] Other 11-18-2023 10:00-0500 Systolic blood pressure 149 mm[Hg] Ron Doreen Other [facility] Other 11-04-2023 11:00-0500 Body height 168.91 cm Ron Doreen Other [facility] Other 11-04-2023 11:00-0500 Body mass index (BMI) [Ratio] 30.17 kg/m2 Ron Doreen Other [facility] Other 11-04-2023 11:00-0500 Body temperature 97.6 [degF] Ron Doreen Other [facility] Other 11-04-2023 11:00-0500 Body weight 86.09 kg Ron Doreen Other [facility] Other 11-04-2023 11:00-0500 Diastolic blood pressure 76 mm[Hg] Ron Doreen Other [facility] Other 11-04-2023 11:00-0500 Respiratory rate 18 /min Ron Doreen Other [facility] Other 11-04-2023 11:00-0500 SaO2% (BldA) [Mass fraction] 98 % Ron Doreen Other [facility] Other 11-04-2023 11:00-0500 Systolic blood pressure 153 mm[Hg] Ron Doreen Other [facility] Other 10-15-2023 13:00-0500 Body height 168.91 cm Ron Doreen Other [facility] Other 10-15-2023 13:00-0500 Body mass index (BMI) [Ratio] 29.82 kg/m2 Ron Doreen Other [facility] Other 10-15-2023 13:00-0500 Body temperature 97.5 [degF] Ron Doreen Other [facility] Other 10-15-2023 13:00-0500 Body weight 85.1 kg Ron Doreen Other [facility] Other 10-15-2023 13:00-0500 Diastolic blood pressure 68 mm[Hg] Ron Doreen Other [facility] Other 10-15-2023 13:00-0500 Respiratory rate 18 /min Ron Doreen Other [facility] Other 10-15-2023 13:00-0500 SaO2% (BldA) [Mass fraction] 98 % Ron Doreen Other [facility] Other 10-15-2023 13:00-0500 Systolic blood pressure 113 mm[Hg] Ron Doreen Other [facility] Other 08-27-2023 09:40-0500 Body height 168.91 cm Mary Anne Ackerman Other [facility] Other 08-27-2023 09:40-0500 Body mass index (BMI) [Ratio] 30.2 kg/m2 Mary Anne Bakhous Other [facility] Other 08-27-2023 09:40-0500 Body temperature 96.7 [degF] Aziz Bakhous Other [facility] Other 08-27-2023 09:40-0500 Body weight 86.18 kg Azduc Bakhous Other [facility] Other 08-27-2023 09:40-0500 Diastolic blood pressure 72 mm[Hg] Aziz Bakhous Other [facility] Other 08-27-2023 09:40-0500 Respiratory rate 18 /min Mary Anne Mensahs Other [facility] Other 08-27-2023 09:40-0500 SaO2% (BldA) [Mass fraction] 98 % Mary Anne Mensahs Other [facility] Other 08-27-2023 09:40-0500 Systolic blood pressure 153 mm[Hg] Mary Anne Bakjuniors Other [facility] Other 08-15-2023 10:20-0500 Body height 168.91 cm Ron Doreen Other [facility] Other 08-15-2023 10:20-0500 Body mass index (BMI) [Ratio] 30.2 kg/m2 Ron Doreen Other [facility] Other 08-15-2023 10:20-0500 Body temperature 97.1 [degF] Ron Doreen Other [facility] Other 08-15-2023 10:20-0500 Body weight 86.18 kg Ron Doreen Other [facility] Other 08-15-2023 10:20-0500 Diastolic blood pressure 79 mm[Hg] Ron Doreen Other [facility] Other 08-15-2023 10:20-0500 Respiratory rate 18 /min Ron Doreen Other [facility] Other 08-15-2023 10:20-0500 SaO2% (BldA) [Mass fraction] 98 % Ron Doreen Other [facility] Other 08-15-2023 10:20-0500 Systolic blood pressure 164 mm[Hg] Ron Doreen Other [facility] Other 08-13-2023 15:40-0500 Body height 168.91 cm Ron Doreen Other [facility] Other 08-13-2023 15:40-0500 Body mass index (BMI) [Ratio] 30.24 kg/m2 Ron Doreen Other [facility] Other 08-13-2023 15:40-0500 Body temperature 97.2 [degF] Ron Doreen Other [facility] Other 08-13-2023 15:40-0500 Body weight 86.27 kg Ron Doreen Other [facility] Other 08-13-2023 15:40-0500 Diastolic blood pressure 79 mm[Hg] Ron Doreen Other [facility] Other 08-13-2023 15:40-0500 Respiratory rate 18 /min Ron Doreen Other [facility] Other 08-13-2023 15:40-0500 SaO2% (BldA) [Mass fraction] 98 % Ron Doreen Other [facility] Other 08-13-2023 15:40-0500 Systolic blood pressure 186 mm[Hg] Ron Doreen Other [facility] Other 08-01-2023 13:00-0400 Body height 168.91 cm Ron Doreen Other [facility] Other 08-01-2023 13:00-0400 Body mass index (BMI) [Ratio] 30.55 kg/m2 Ron Doreen Other [facility] Other 08-01-2023 13:00-0400 Body temperature 97.8 [degF] Ron Doreen Other [facility] Other 08-01-2023 13:00-0400 Body weight 87.18 kg Ron Doreen Other [facility] Other 08-01-2023 13:00-0400 Diastolic blood pressure 72 mm[Hg] Ron Doreen Other [facility] Other 08-01-2023 13:00-0400 Respiratory rate 18 /min Ron Doreen Other [facility] Other 08-01-2023 13:00-0400 SaO2% (BldA) [Mass fraction] 98 % Ron Doreen Other [facility] Other 08-01-2023 13:00-0400 Systolic blood pressure 160 mm[Hg] Ron Doreen Other [facility] Other 06-24-2023 11:40-0400 Body height 168.91 cm Ron Doreen Other [facility] Other 06-24-2023 11:40-0400 Body mass index (BMI) [Ratio] 29.89 kg/m2 Ron Doreen Other [facility] Other 06-24-2023 11:40-0400 Body temperature 97.3 [degF] Ron Doreen Other [facility] Other 06-24-2023 11:40-0400 Body weight 85.28 kg Ron Doreen Other [facility] Other 06-24-2023 11:40-0400 Diastolic blood pressure 75 mm[Hg] Ron Doreen Other [facility] Other 06-24-2023 11:40-0400 Respiratory rate 18 /min Ron Doreen Other [facility] Other 06-24-2023 11:40-0400 SaO2% (BldA) [Mass fraction] 99 % Ron Doreen Other [facility] Other 06-24-2023 11:40-0400 Systolic blood pressure 129 mm[Hg] Ron Doreen Other [facility] Other 06-06-2023 15:20-0400 Body height 168.91 cm Ron Doreen Other [facility] Other 06-06-2023 15:20-0400 Body mass index (BMI) [Ratio] 29.92 kg/m2 Ron Doreen Other [facility] Other 06-06-2023 15:20-0400 Body temperature 96.5 [degF] Ron Doreen Other [facility] Other 06-06-2023 15:20-0400 Body weight 85.37 kg Ron Doreen Other [facility] Other 06-06-2023 15:20-0400 Diastolic blood pressure 49 mm[Hg] Ron Doreen Other [facility] Other 06-06-2023 15:20-0400 Respiratory rate 18 /min Ron Doreen Other [facility] Other 06-06-2023 15:20-0400 SaO2% (BldA) [Mass fraction] 99 % Ron Doreen Other [facility] Other 06-06-2023 15:20-0400 Systolic blood pressure 128 mm[Hg] Ron Doreen Other [facility] Other 04-30-2023 11:40-0400 Body height 168.91 cm Ron Doreen Other [facility] Other 04-30-2023 11:40-0400 Body mass index (BMI) [Ratio] 30.52 kg/m2 Ron Doreen Other [facility] Other 04-30-2023 11:40-0400 Body temperature 96.9 [degF] Ron Doreen Other [facility] Other 04-30-2023 11:40-0400 Body weight 87.09 kg Ron Doreen Other [facility] Other 04-30-2023 11:40-0400 Diastolic blood pressure 80 mm[Hg] Ron Doreen Other [facility] Other 04-30-2023 11:40-0400 Respiratory rate 18 /min Ron Doreen Other [facility] Other 04-30-2023 11:40-0400 SaO2% (BldA) [Mass fraction] 98 % Ron Doreen Other [facility] Other 04-30-2023 11:40-0400 Systolic blood pressure 150 mm[Hg] Ron Doreen Other [facility] Other 04-06-2023 09:00-0400 Body height 168.91 cm Ron Doreen Other [facility] Other 04-06-2023 09:00-0400 Body mass index (BMI) [Ratio] 30.36 kg/m2 Ron Doreen Other [facility] Other 04-06-2023 09:00-0400 Body weight 86.64 kg Ron Doreen Other [facility] Other 04-06-2023 09:00-0400 Diastolic blood pressure 54 mm[Hg] Ron Doreen Other [facility] Other 04-06-2023 09:00-0400 Respiratory rate 18 /min Ron Doreen Other [facility] Other 04-06-2023 09:00-0400 SaO2% (BldA) [Mass fraction] 98 % Ron Doreen Other [facility] Other 04-06-2023 09:00-0400 Systolic blood pressure 144 mm[Hg] Ron Doreen Other [facility] Other 04-02-2023 14:40-0400 Body height 168.91 cm Ron Doreen Other [facility] Other 04-02-2023 14:40-0400 Body mass index (BMI) [Ratio] 30.55 kg/m2 Ron Doreen Other [facility] Other 04-02-2023 14:40-0400 Body temperature 97 [degF] Ron Doreen Other [facility] Other 04-02-2023 14:40-0400 Body weight 87.18 kg Ron Doreen Other [facility] Other 04-02-2023 14:40-0400 Diastolic blood pressure 76 mm[Hg] Ron Doreen Other [facility] Other 04-02-2023 14:40-0400 Respiratory rate 18 /min Ron Doreen Other [facility] Other 04-02-2023 14:40-0400 SaO2% (BldA) [Mass fraction] 98 % Ron Doreen Other [facility] Other 04-02-2023 14:40-0400 Systolic blood pressure 183 mm[Hg] Ron Doreen Other [facility] Other 03-07-2023 09:20-0400 Body height 168.91 cm Ron Doreen Other [facility] Other 03-07-2023 09:20-0400 Body mass index (BMI) [Ratio] 30.52 kg/m2 Ron Doreen Other [facility] Other 03-07-2023 09:20-0400 Body temperature 97.1 [degF] Ron Doreen Other [facility] Other 03-07-2023 09:20-0400 Body weight 87.09 kg Ron Doreen Other [facility] Other 03-07-2023 09:20-0400 Diastolic blood pressure 72 mm[Hg] Ron Doreen Other [facility] Other 03-07-2023 09:20-0400 Respiratory rate 18 /min Ron Doreen Other [facility] Other 03-07-2023 09:20-0400 SaO2% (BldA) [Mass fraction] 97 % Ron Doreen Other [facility] Other 03-07-2023 09:20-0400 Systolic blood pressure 130 mm[Hg] Ron Doreen Other [facility] Other 12-20-2022 13:20-0400 Body height 168.91 cm Ron Doreen Other [facility] Other 12-20-2022 13:20-0400 Body mass index (BMI) [Ratio] 30.68 kg/m2 Ron Doreen Other [facility] Other 12-20-2022 13:20-0400 Body temperature 97.1 [degF] Ron Doreen Other [facility] Other 12-20-2022 13:20-0400 Body weight 87.54 kg Ron Doreen Other [facility] Other 12-20-2022 13:20-0400 Diastolic blood pressure 72 mm[Hg] Ron Doreen Other [facility] Other 12-20-2022 13:20-0400 Respiratory rate 18 /min Ron Doreen Other [facility] Other 12-20-2022 13:20-0400 SaO2% (BldA) [Mass fraction] 99 % Ron Doreen Other [facility] Other 12-20-2022 13:20-0400 Systolic blood pressure 139 mm[Hg] Ron Doreen Other [facility] Other 11-05-2022 14:00-0500 Body height 168.91 cm Ron Doreen Other [facility] Other 11-05-2022 14:00-0500 Body mass index (BMI) [Ratio] 30.59 kg/m2 Ron Doreen Other [facility] Other 11-05-2022 14:00-0500 Body temperature 96.8 [degF] Ron Doreen Other [facility] Other 11-05-2022 14:00-0500 Body weight 87.27 kg Ron Doreen Other [facility] Other 11-05-2022 14:00-0500 Diastolic blood pressure 72 mm[Hg] Ron Doreen Other [facility] Other 11-05-2022 14:00-0500 Respiratory rate 18 /min Ron Doreen Other [facility] Other 11-05-2022 14:00-0500 SaO2% (BldA) [Mass fraction] 98 % Ron Doreen Other [facility] Other 11-05-2022 14:00-0500 Systolic blood pressure 157 mm[Hg] Ron Doreen Other [facility] Other 09-27-2022 16:00-0500 Body height 168.91 cm Jana Monson Other [facility] Other 09-27-2022 16:00-0500 Body mass index (BMI) [Ratio] 30.55 kg/m2 Jana Monson Other [facility] Other 09-27-2022 16:00-0500 Body temperature 96.8 [degF] Jana Monson Other [facility] Other 09-27-2022 16:00-0500 Body weight 87.18 kg Jana Monson Other [facility] Other 09-27-2022 16:00-0500 Diastolic blood pressure 73 mm[Hg] Jana Monson Other [facility] Other 09-27-2022 16:00-0500 Respiratory rate 18 /min Jana Monson Other [facility] Other 09-27-2022 16:00-0500 SaO2% (BldA) [Mass fraction] 98 % Jana Monson Other [facility] Other 09-27-2022 16:00-0500 Systolic blood pressure 159 mm[Hg] Jana Monson Other [facility] Other 08-22-2022 12:00-0500 Body height 168.91 cm Ron Doreen Other [facility] Other 08-22-2022 12:00-0500 Body mass index (BMI) [Ratio] 30.65 kg/m2 Ron Doreen Other [facility] Other 08-22-2022 12:00-0500 Body temperature 96.9 [degF] Ron Doreen Other [facility] Other 08-22-2022 12:00-0500 Body weight 87.45 kg Ron Doreen Other [facility] Other 08-22-2022 12:00-0500 Diastolic blood pressure 75 mm[Hg] Ron Doreen Other [facility] Other 08-22-2022 12:00-0500 Respiratory rate 18 /min Ron Doreen Other [facility] Other 08-22-2022 12:00-0500 SaO2% (BldA) [Mass fraction] 96 % Ron Doreen Other [facility] Other 08-22-2022 12:00-0500 Systolic blood pressure 121 mm[Hg] Ron Doreen Other [facility] Other 05-08-2022 10:20-0400 Body height 168.91 cm Ron Doreen Other [facility] Other 05-08-2022 10:20-0400 Body mass index (BMI) [Ratio] 31.54 kg/m2 Ron Doreen Other [facility] Other 05-08-2022 10:20-0400 Body temperature 97.6 [degF] Ron Doreen Other [facility] Other 05-08-2022 10:20-0400 Body weight 89.99 kg Ron Doreen Other [facility] Other 05-08-2022 10:20-0400 Diastolic blood pressure 68 mm[Hg] Ron Doreen Other [facility] Other 05-08-2022 10:20-0400 Respiratory rate 18 /min Ron Doreen Other [facility] Other 05-08-2022 10:20-0400 SaO2% (BldA) [Mass fraction] 98 % Ron Doreen Other [facility] Other 05-08-2022 10:20-0400 Systolic blood pressure 131 mm[Hg] Ron Doreen Other [facility] Other 01-18-2022 10:20-0400 Body height 168.91 cm Ron Doreen Other [facility] Other 01-18-2022 10:20-0400 Body mass index (BMI) [Ratio] 31 kg/m2 Ron Doreen Other [facility] Other 01-18-2022 10:20-0400 Body temperature 96.4 [degF] Ron Doreen Other [facility] Other 01-18-2022 10:20-0400 Body weight 88.45 kg Ron Doreen Other [facility] Other 01-18-2022 10:20-0400 Diastolic blood pressure 74 mm[Hg] Ron Doreen Other [facility] Other 01-18-2022 10:20-0400 Respiratory rate 18 /min Ron Doreen Other [facility] Other 01-18-2022 10:20-0400 SaO2% (BldA) [Mass fraction] 97 % Ron Doreen Other [facility] Other 01-18-2022 10:20-0400 Systolic blood pressure 170 mm[Hg] Ron Doreen Other [facility] Other Encounters Encounter Date Encounter Type Care Provider Facility Start: 11-28-2023 End: 11-28-2023 ambulatory GREG TINEO Not Available Start: 11-18-2023 End: 11-18-2023 ambulatory Ron Doreen Other [facility] Other Start: 11-18-2023 Office outpatient visit 15 minutes Ron Doreen [facility] Start: 11-05-2023 End: 11-05-2023 ambulatory GA CRESPO Not Available Start: 11-04-2023 (INJECTION) INJECTION Ron Doreen [facility] Start: 11-04-2023 End: 11-04-2023 ambulatory Ron Doreen Other [facility] Other Start: 10-22-2023 End: 10-22-2023 ambulatory GA CRESPO Not Available Start: 10-15-2023 End: 10-15-2023 ambulatory Ron Doreen Other [facility] Other Start: 10-15-2023 Office outpatient visit 15 minutes Ron Doreen [facility] Start: 10-08-2023 End: 10-08-2023 ambulatory Aziz Bakhous Other [facility] Other Start: 10-08-2023 Telephone encounter Aziz Bakhous [facility] Start: 09-15-2023 End: 09-15-2023 ambulatory Ron Doreen Other [facility] Other Start: 09-15-2023 Telephone encounter Ron Doreen [facility] Start: 09-09-2023 End: 09-09-2023 ambulatory Ron Doreen Other [facility] Other Start: 09-09-2023 Telephone encounter Ron Doreen [facility] Start: 08-27-2023 (INJECTION) INJECTION Aziz Bakhous [facility] Start: 08-27-2023 End: 08-27-2023 ambulatory Azduc Mensahs Other [facility] Other Start: 08-15-2023 (INJECTION) INJECTION Ron Doreen [facility] Start: 08-15-2023 End: 08-15-2023 ambulatory Ron Doreen Other [facility] Other Start: 08-13-2023 (INJECTION) INJECTION Ron Doreen [facility] Start: 08-13-2023 End: 08-13-2023 ambulatory Ron Doreen Other [facility] Other Start: 08-01-2023 End: 08-01-2023 ambulatory Ron Doreen Other [facility] Other Start: 08-01-2023 Office outpatient visit 15 minutes Ron Doreen [facility] Start: 06-24-2023 End: 06-24-2023 ambulatory Ron Doreen Other [facility] Other Start: 06-24-2023 Office outpatient visit 10 minutes Ron Doreen [facility] Start: 06-06-2023 End: 06-06-2023 ambulatory Ron Doreen Other [facility] Other Start: 06-06-2023 Office outpatient visit 15 minutes Ron Doreen [facility] Start: 04-30-2023 End: 04-30-2023 ambulatory Ron Doreen Other [facility] Other Start: 04-30-2023 Office outpatient visit 15 minutes Ron Doreen [facility] Start: 04-06-2023 (INJECTION) INJECTION Ron Doreen [facility] Start: 04-06-2023 End: 04-06-2023 ambulatory Ron Doreen Other [facility] Other Start: 04-06-2023 Telephone encounter Ron Doreen [facility] Start: 04-02-2023 End: 04-02-2023 ambulatory Ron Doreen Other [facility] Other Start: 04-02-2023 Office outpatient visit 15 minutes Ron Doreen [facility] Start: 04-02-2023 Telephone encounter Ron Doreen [facility] Start: 03-07-2023 End: 03-07-2023 ambulatory Ron Doreen Other [facility] Other Start: 03-07-2023 Office outpatient visit 15 minutes Ron Doreen [facility] Start: 01-22-2023 End: 01-23-2023 ambulatory RON DOREEN Facility:[facility] Start: 12-20-2022 End: 12-20-2022 ambulatory Ron Doreen Other [facility] Other Start: 12-20-2022 Office outpatient visit 15 minutes Ron Droeen [facility] Start: 12-17-2022 End: 12-18-[address] DHRUV GUTIERRES . Facility:[facility] Start: 12-10-2022 End: 12-11-2022 ambulatory RON DOREEN Facility:[facility] Start: 11-20-2022 End: 11-21-[address] BENI APARICIO Facility:[facility] Start: 11-05-2022 End: 11-05-2022 ambulatory Ron Doreen Other [facility] Other Start: 11-05-2022 Office outpatient visit 15 minutes Ron Doreen [facility] Start: 10-29-2022 End: 10-30-[address] JANA MONSON Facility:[facility] Start: 10-24-2022 End: 10-24-[address] LILLIAN ACOSTA . Facility:[facility] Start: 10-24-2022 End: 10-25-[address] DHRUV GUTIERRES . Facility:[facility] Start: 09-27-2022 End: 09-27-2022 ambulatory Jana Monson Other [facility] Other Start: 09-27-2022 Office outpatient visit 15 minutes Jana Monson [facility] Start: 09-18-2022 End: 09-19-2022 ambulatory RON DOREEN Facility:[facility] Start: 09-11-2022 End: 09-11-[address] DHRUV GUTIERRES . Facility:[facility] Start: 08-22-2022 End: 08-22-2022 ambulatory Ron Doreen Other [facility] Other Start: 08-22-2022 Office outpatient visit 15 minutes Ron Doreen [facility] Start: 08-13-2022 End: 08-14-2022 ambulatory RON DOREEN Facility:[facility] Start: 06-25-2022 End: 06-26-[address] DHRUV GUTIERRES . Facility:[facility] Start: 06-18-2022 End: 06-18-[address] DHRUV GUTIERRES . Facility:[facility] Start: 06-01-2022 End: 06-02-[address] YANET HUERTA Facility:[facility] Start: 05-28-2022 End: 05-28-2022 ambulatory Ron Doreen Other [facility] Other Start: 05-28-2022 Telephone encounter Ron Doreen [facility] Start: 05-21-2022 End: 05-22-[address] DHRUV GUTIERRES . Facility:[facility] Start: 05-16-2022 End: 05-16-2022 ambulatory Ron Doreen Other [facility] Other Start: 05-16-2022 Telephone encounter Ron Doreen [facility] Start: 05-10-2022 End: 05-10-2022 ambulatory Ron Doreen Other [facility] Other Start: 05-10-2022 Telephone encounter Ron Doreen [facility] Start: 05-08-2022 End: 05-08-2022 ambulatory Ron Doreen Other [facility] Other Start: 05-08-2022 Office outpatient visit 25 minutes Ron Doreen [facility] Start: 05-02-2022 End: 05-03-2022 ambulatory RON DOREEN Facility: Start: 04-24-2022 End: 04-24-2022 ambulatory Aziz Bakhous Other [facility] Other Start: 04-24-2022 Telephone encounter Aziz Bakhous [facility] Start: 01-18-2022 End: 01-18-2022 ambulatory Ron Doreen Other [facility] Other Start: 01-18-2022 Office outpatient visit 25 minutes Ron Doreen [facility] [place] Start: 05-21-2017 End: 05-22-2017 Ambulatory DEFAULT PHYSICIAN Facility:[facility] Payers Date Payer Category Payer Medicare [id number] 1945 Unknown [id number] 2.16.84 [id number] 1945 Unknown [id number] 2.16.84 0.1.743005.3.579.2.593 1945 Unknown [id number] 2.16.84 0.1.292215.3.579.2.593 1945 Unknown [id number] 2.16.84 0.1.235811.3.579.2.593 1945 Unknown [id number] 2.16.84 0.1.334676.3.579.2.593 1945 Unknown [id number] 2.16.84 0.1.216483.3.579.2.593 1945 Unknown [id number] 2.16.84 0.1.683509.3.579.2.593 1945 Unknown [id number] 2.16.84 0.1.521494.3.579.2.593 1945 Unknown [id number] 2.16.84 0.1.772173.3.579.2.593 1945 Unknown [id number] 2.16.84 0.1.019888.3.579.2.593 1945 Unknown [id number] 2.16.84 0.1.060423.3.579.2.593 1945 Unknown [id number] 2.16.84 0.1.913692.3.579.2.593 1945 Unknown [id number] 2.16.84 0.1.188002.3.579.2.593 1945 Unknown [id number] 2.16.84 0.1.844009.3.579.2.593 1945 Unknown [id number] 2.16.84 0.1.407101.3.579.2.593 1945 Unknown [id number] 2.16.84 0.1.305304.3.579.2.593 1945 Unknown [id number] 2.16.84 0.1.981734.3.579.2.1259 1945 Unknown [id number] 2.16.84 0.1.896116.3.579.2.1259 1945 Unknown [id number] 2.16.84 0.1.006580.3.579.2.1259 Unknown Social History Date Type Detail Facility Unknown if ever smoked [facility] Other Sex Assigned At Sex Assigned At Bir [facility] Other Clinical Notes 01-18-2022 to 11-18-2023 Note [...] potassium improved with dietary restriction and Lasix. [facility] Other 01-29-2024 Evaluation note* Encounter Date Diagnosis Assessment Notes Treatment Notes Treatment Clinical Notes Oct, Anemia of renal disease (ICD-10 - D63.1) Oct, CKD (chronic kidney disease) stage 4, GFR 15-29 ml/min (ICD-10 - N18.4) [facility] Other 01-09-2024 Evaluation note* Encounter Date Diagnosis [...] potassium improved with dietary restriction and Lasix. [facility] Other 12-04-2023 Evaluation note* Encounter Date Diagnosis [...] 4, GFR 15-29 ml/min (ICD-10 - N18.4) [facility] Other 11-21-2023 Evaluation note* Encounter Date Diagnosis Assessment Notes Treatment Notes Treatment Clinical Notes Aug, Anemia of renal disease (ICD-10 - D63.1) Aug, CKD (chronic kidney disease) stage 4, GFR 15-29 ml/min (ICD-10 - N18.4) [facility] Other 11-09-2023 Evaluation note* Encounter Date Diagnosis [...] of kidney mass hydronephrosis or kidney stones. [facility] Other 10-26-2023 Evaluation note* Encounter Date Diagnosis [...] potassium improved with dietary restriction and Lasix. [facility] Other 09-18-2023 Evaluation note* Encounter Date Diagnosis [...] potassium improved with dietary restriction and Lasix. [facility] Other 08-31-2023 Evaluation note* Encounter Date Diagnosis [...] potassium improved with dietary restriction and Lasix. [facility] Other 07-25-2023 Evaluation note* Encounter Date Diagnosis [...] to normal with dietary restriction and Lasix. [facility] Other 07-01-2023 Evaluation note* Encounter Date Diagnosis Assessment Notes Treatment Notes Treatment Clinical Notes Apr, CKD (chronic kidney disease) stage 4, GFR 15-29 ml/min (ICD-10 - N18.4) Apr, Anemia of renal disease (ICD-10 - D63.1) [facility] Other 06-27-2023 Evaluation note* Encounter Date Diagnosis [...] to normal with dietary restriction and Lasix. [facility] Other 06-01-2023 Evaluation note* Encounter Date Diagnosis [...] potassium diet and provide information about it. [facility] Other 03-16-2023 Evaluation note* Encounter Date Diagnosis [...] to Continue Vit D 5000 units daily [facility] Other 01-30-2023 Evaluation note* Encounter Date Diagnosis [...] to Continue Vit D 5000 units daily [facility] Other 12-22-2022 Evaluation note* Encounter Date Diagnosis [...] to Continue Vit D 5000 units daily [facility] Other 11-16-2022 Evaluation note* Encounter Date Diagnosis [...] to Continue Vit D 5000 units daily [facility] Other 08-04-2022 Evaluation note* Encounter Date Diagnosis Assessment Notes Treatment Notes Treatment Clinical Notes May, Hypertensive chronic kidney disease with stage 1 through stage 4 chronic kidney disease, or unspecified chronic kidney disease (ICD-10 - I12.9) [facility] Other 08-02-2022 Evaluation note* Encounter Date Diagnosis [...] to Continue Vit D 5000 units daily [facility] Other 07-19-2022 Evaluation note* Encounter Date Diagnosis Assessment Notes Treatment Notes Treatment Clinical Notes Apr, Hypertensive chronic kidney disease with stage 1 through stage 4 chronic kidney disease, or unspecified chronic kidney disease (ICD-10 - I12.9) [facility] Other 04-14-2022 Evaluation note* Encounter Date Diagnosis [...] to take Vit D 1000 units daily [facility] Other Evaluation noteNo InformationNortFlexenclosure Other History general Narrative - Reported* Type [...] History SEE ABOVE Hospitalization History COVID 09/2020 [facility] Other Hisgtto general Narrative - Reported* Type Description Date [...] History SEE ABOVE Hospitalization History COVID 09/2020 [facility] Other History general Narrative - Reported* Type [...] NOSE 10/2019 [facility] [place] 01/01/2021 Hospitalization History ELEVATED BLOOD PRESSURE Hospitalization History SEE ABOVE Hospitalization History COVID 09/2020 [facility] Other History general Narrative - ReportedNoFlexenclosure Other History general Narrative - Reported* Type [...] History SEE ABOVE Hospitalization History COVID 09/2020 [facility] Other Summary Purpose Family History No Family History Records FoundNo Family History Records FoundNo Family History Records Found Advance Directives No Advanced Directives Records FoundNo Advanced Directives Records FoundNo Advanced Directives Records Found Additional Source Comments INFORMATION SOURCE (unrecogn ized section and content) DATE CREATED AUTHOR 04/02/2018 [facility] DATE CREATED AUTHOR AUTHOR'S ORGANIZ ATION 01/27/2023 [facility] DATE CREATED AUTHOR AUTHOR'S ORGANIZ ATION 12/06/2023 [facility] EPIC REASON FOR VISIT (unrecogniz [...] BE BASED ON THE PRIMARY CLINICAL RECORDS. [employer] [facility]. provides no warranty or guarantee of the accuracy or completeness of information in this document.
== END 2023-12-19 10:04 | disposition home or self-care (01) ==
LOC: MAMMO 10:03
PROVIDERS: PCP Family Medicine; Visit Provider Family Medicine
DX: Z12.31 Encounter for screening mammogram for malignant neoplasm of breast (principal); Z80.3 Family history of malignant neoplasm of breast; Z80.1 Family history of malignant neoplasm of trachea, bronchus and lung
CPT/HCPCS: 77063; 77067

== ENCOUNTER 2023-12-30 19:53 | Observation (INO) | payer MEDICARE, SELFPAY ==
[2023-12-30] VITALS (37 sets, daily range): BP systolic 128–292; BP diastolic 62–118; PULSE 65–72; RESP 14–29; TEMP 37.1; O2SAT 97–99; BMI 30.3
--- NOTE | 2023-12-30 20:14 | ECG_ITS ---
[facility] Test Date: 2023-12-30 Pat Name: KYLAH BERGER Department: Room: - Gender: Female [employer]e [employer] [place]: : 1945 Requested By: DHRUV GUTIERRES Order Number: [id number] Reading MD: DHRUV GUTIERRES Measurements Intervals [place] Rate: 70 P: 46 NM: 174 QRS: -18 QRSD: 86 T: 106 QT: 384 QTc: 405 Interpretive Statements 1100 Sinus rhythm Non-Specific T wave inversion in aVL 0102 ARTIFACT PRESENT 9150 abnormal ECG Electronically Signed On 01-01-2024 9:13:38 EDT by DHRUV GUTIERRES
--- NOTE | 2023-12-30 20:14 | XR_ITS ---
[address] [address] Patient Name: KYLAH BERGER MRN: [id number] date: 1945 Sex: F Assigned Patient Location: ER Current Patient Location: ER Accession/Order Number: [id number] Exam Date: 12/30/2023 21:13 Report Date: 12/30/2023 21:53 At the request of: ENEDINA WALKER Procedure: XR chest 1V Exam: Radiographs: XR chest 1V Reason for exam: Chest pain Comparison: Chest x-ray dated 11/17/2020 XR/XR chest 1V IMPRESSION: Sternotomy. Chest is otherwise unremarkable. Electronically authenticated by: ISABEL MEZA Date: 12/30/2023 21:53
--- OUTSIDE RECORDS SUMMARY | 2023-12-30 20:17 | XMS_ITS | CCD ---
Author Organization [facility] Care Team Providers Care [facility] Sifter And Miller Name Role Phone PHYSICIAN, DEFAULT Unavailable Unavailable PHYSICIAN, DEFAULT Unavailable Unavailable Doreen, Ron Unavailable RodricknickieMary Anne Unavailable Jana Monson Unavailable FIORELLAY ., DR [...] CRESPO Attending Unavailable GREG TINEO Attending Unavailable Dhruv Rubi MD Primary Care Provider [phone] Allergies Allergy Classification Reported Allergen(s) Allergy Type Date of Onset Reaction(s) Facility (20 sources) amLODIPine Drug Allergy 03-28-20 05 [facility] (20 sources) Amoxicillin / Clavulanate Drug Allergy 11-23-19 [facility] Other (20 sources) Contrast media Propensity to adverse reactions Unknown [facility] Other (2 sources) Doxazosin; Translations: [doxazosin] Drug Allergy Unknown [facility] Other (20 sources) Sulfamethoxazole / Trimethoprim Drug Allergy 11-23-19 [facility] Other (20 sources) Doxazosin Drug Allergy 11-23-19 21 Unknown [facility] Other (9 sources) Amoxicillin / Clavulanate; Translations: [Augmentin] Drug Allergy 11-16-19 16 Unknown [facility] (1 source) amLODIPine Drug Allergy 04-25-20 14 [facility] (1 source) Sulfamethoxazole / Trimethoprim Drug Allergy 03-09-20 13 [facility] (1 source) Iodinated Contrast Media Propensity to adverse reactions to drug [facility] [place] Medic[facility] Current Medications Medication Drug Class(es) Dates Sig (Normalized) Sig (Original) acetaminophen 500 mg oral tablet (20 sources) take 1 tablet by mouth every six hours as needed for pain acetaminophen (TYLENOL) 500 mg tablet Take 1 tablet (500 mg total) by mouth every 6 (six) hours as needed for pain. 0 Active take 2 tablets by mouth every si x hours Acetaminophen Extra Strength 500 MG 2 tablet as needed Orally every 6 hrs Active Acetaminophen Extra Strength 500 MG (4 sources) take 2 tablets by mouth every six hours as needed Acetaminophen Extra Strength 500 MG 2 tablet as needed Orally every 6 hrs Active allopurinol 300 mg oral tablet (20 sources) Xanthine Oxidase Inhibitor take 1 tablet by mouth in the morning allopurinoL (ZYLOPRIM) 300 mg tablet Take 1 tablet (300 mg total) by mouth in the morning. 0 Active aspirin 81 mg delayed release oral tablet (20 sources) Platelet Aggregation Inhibitor, Nonsteroidal Anti-inflammatory Drug Start: 01-12-20 take 1 tablet by mouth once daily aspirin 81 mg Indications: Hypertensive urgency , Shortness of breath , H/O four vessel coronary artery bypass graft , Atherosclerosis of [place] coronary artery of [place] heart without angina pectoris , Paroxysmal atrial fibrillation (CMS-HCC) , Localized edema Take 1 tablet (81 mg total) by mouth daily. 90 tablet 3 01/11/2021 Active take 1 tablet by enzo th every twenty-four hours Aspirin 81 MG 1 tablet Orally Once a day Active atorvastatin 80 mg oral tablet (20 sources) HMG-CoA Reductase Inhibitor Start: 12-27-2022 End: 12-25-2023 take 1 tablet by mouth once daily atorvastatin (LIPITOR) 80 mg tablet Indications: Atherosclerosis of [place] coronary artery of [place] heart without angina pectoris , H/O four vessel coronary artery bypass graft , Hypertensive urgency , Shortness of breath , Paroxysmal atrial fibrillation (CMS-HCC) , Localized edema take 1 tablet by mouth nightly 90 tablet 3 12/25/2023 Active calcium carbonate 1500 mg oral tablet (2 sources) take 1 tablet by mouth every twenty-four hours Calcium 600 MG 1 tablet with meals Orally Once a day Active carvedilol 25 mg oral tablet (20 sources) alpha-Adrenergic Gato, beta-Adrenergic Gato Start: 08-06-2022 take 1 tablet by mouth once in the morning, then take 1 tablet by mouth at bedtime carvediloL (COREG) 25 mg tablet Indications: H/O four vessel coronary artery bypass graft , Hypertensive urgency , Shortness of breath , Paroxysmal atrial fibrillation (CMS-HCC) , Localized edema Take 1 tablet (25 mg total) by mouth in the morning and 1 tablet (25 mg total) before bedtime. 180 tablet 3 08/06/2022 Active take 1 tablet by enzo th every twelve hours Carvedilol 25 MG 1 tablet with food Oral ly Twice a day Active cholecalciferol 0.125 mg oral tablet (1 source) Vitamin D take 1 tablet by mouth in the morning cholecalciferol, vitamin D3, 5,000 units tablet Take 1 tablet (5,000 Units total) by mouth in the morning. 0 Active ciprofloxacin 500 mg oral tablet (3 sources) Quinolone Antimicrobial take 1 tablet by mouth every twelve hours Cipro 500 MG 1 tablet Orally every 12 hrs Active docusate sodium 50 mg / sennosides, custodial 8.6 mg oral tablet (5 sources) take 1 tablet by mouth every twelve hours Sennosides-Docusate Sodium 8.6-50 MG 1 tablet in the evening as needed Orally every 12 hours Active epoetin [id number]-epbx 02604 UNT/ML Injectable Solution [Retacrit] (14 sources) Retacrit 24082 U NIT/ML as directed Injection Active ferrous sulfate 325 mg oral tablet (20 sources) take 1 tablet by enzo th in the morning, then take 1 tablet by mouth at bedtime ferrous sulfate 325 (65 FE) mg tablet Take 1 tablet (325 mg total) by mouth in the morning and 1 tablet (325 mg total) before bedtime. 0 Active take 1 tablet by mouth twice marquez ly take 1 tablet by mouth twice marquez ly Ferrous Sulfate 325 (65 Fe) MG 1 tablet Orally bid for 90 day(s) Active furosemide 20 mg oral tablet (20 sources) Loop Diuretic take 1 tablet by mouth twice daily furosemide (LASIX) 20 mg tablet Take 1 tablet (20 mg total) by mouth 2 (two) times a day. 0 Active take 1 tablet by mouth once bebo y Furosemide 20 mg TAKE 1 TABLET BY MOUTH ONCE DAILY for 90 Active insulin aspart, human (20 sources) Insulin Analog inject 10 [IU] by subcutaneous injection before breakfast, then inject 15 [IU] by subcutaneous injection before lunch, then inject 20 [IU] by subcutaneous injection before dinner insulin aspart (NOVOLOG FLEXPEN U-100 INSULIN SUBQ) Inject under the skin. 10 UNITS BEFORE BREAKFAST, 15 UNITS BEFORE LUNCH, 20 UNITS BEFORE DINNER 0 Active NovoLOG FlexPen 100 UNIT/ML Use as Directed Subcutaneous 10 units in am, 15 units at noon, 20 units at supper. Active insulin detemir 100 unt/ml injectable solution (18 sources) Insulin Analog Start: 01-03-2021 insulin detemi r U-100 (LEVEMIR) 100 unit/mL injection Inject 30 units in the morning and 25 units at night - closely monitor blood sugars and follow up with your PCP in 1-2 weeks 1 Box 12 01/03/2021 Active Levemir FlexTouc h 100 UNIT/ML As Directed Subcutaneous 50 units twice a day Active Levemir FlexTouch 100 UNIT/M L (11 sources) Levemir FlexTouc h 100 UNIT/ML As Directed Subcutaneous 50 units twice a day Active levothyroxine sodium 0.125 mg oral tablet (20 sources) l-Thyroxine take 1 tablet by mouth in the morning levothyroxine (SYNTHROID, LEVOTHROID) 125 MCG tablet Take 1 tablet (125 mcg total) by mouth in the morning. 0 Active take 1 tablet by enzo once daily in the morning Synthroid 125 MCG 1 tablet on an empty stomach in the morning Orally Once a day Active liothyronine sodium 0.005 mg oral tablet (20 sources) l-Triiodothyronine Start: 12-05-2021 take 2 tablets by mouth in the morning liothyronine (CYTOMEL) 5 MCG tablet Take 2 tablets (10 mcg total) by mouth in the morning. 0 12/05/2021 Active take [address] [facility] every twenty-four hours Liothyronine Sodium 5 MCG 2 tablets on a n empty stomach Orally Once a day Active take 2 tablets by mo uth every twenty-four hours lisinopril 10 mg oral tablet (20 sources) Angiotensin Converting Enzyme Inhibitor Start: 01-18-2022 take 1 tablet by mouth every twenty-four hours Lisinopril 10 MG 1 tablet Orally Once a day for 90 day(s) Jan, Active Start: 01-15-2022 take 1 tablet by enzo th in the morning lisinopriL (PRINIVIL,ZESTRIL) 5 mg tablet Take 1 tablet (5 mg total) by mouth in the morning. 30 tablet 11 01/15/2022 Active take 1 tablet by enzo th every twenty-four hours Lisinopril 20 MG 1 tablet Orally Once a day for 90 days Active magnesium oxide 400 mg oral tablet (20 sources) Start: 07-09-2023 take 1 tablet by mouth three times daily magnesium oxide (MAGOX) 400 mg tablet Take 1 tablet (400 mg total) by mouth 3 (three) times a day. 270 tablet 2 07/09/2023 Active take 1 tablet by enzo th every twelve hours Magnesium Oxide 400 MG 1 Tablet Orally twice a day for 90 Active Multi For Her 50+ - (20 sources) Multi For Her 50 + - Orally Active MULTIVITAMIN ORAL (1 source) MULTIVITAMIN ORA L Take by mouth daily. 0 Active pantoprazole 40 mg delayed release oral tablet (20 sources) Proton Pump Inhibitor Start: take 1 tablet by mouth in the morning pantoprazole (PROTONIX) 40 mg EC tablet Take 1 tablet (40 mg total) by mouth in the morning. 0 12/19/2020 Active retacrit 12046 unit/ml solution (5 sources) Retacrit 19905 UNIT/ML as directed Injection Active Sennosides-Docusate Sodium [...] Translations: [ACUTE BRONCHITIS UNSPECIFIED] Onset: 3 Episodic Cardiac dysrhythmias (2 sources) Paroxysmal atrial fibrillation; Translations: [Paroxysmal atrial fibrillation] Onset: 1 12-21-2023 Chronic Chronic kidney disease (20 sources) Chronic kidney disease stage 3; Translations: [Chronic kidney disease, stage 3 (moderate)] Onset: 2 Resolved: 2 Chronic Congestive heart failure; nonhypertensive (1 source) Unspecified diastolic (congestive) heart failure; Translations: [UNSPECIFIED DIASTOLIC HEART FAILURE] Onset: 2 Chronic Coronary atherosclerosis and other heart disease (3 sources) Coronary atherosclerosis; Translations: [Atherosclerotic heart disease of [place] coronary artery without angina pectoris] Onset: 1 12-21-2023 Chronic Deficiency and other anemia (20 sources) [...] kidney disease] Onset: 2 Resolved: 2 Chronic Diabetes mellitus without complication (1 source) Diabetes mellitus; Translations: [Type 2 diabetes mellitus without complications] 11-23-2020 Chronic Disorders of lipid metabolism (1 source) Hyperlipidemia; Translations: [Other hyperlipidemia] Onset: 2 01-15-2022 Chronic Essential hypertension (20 sources) Hypertensive disorder; Translations: [Essential (primary) hypertension] Onset: 1 05-11-2021 Chronic Fluid and electrolyte disorders (8 sources) [...] kidney disease] Onset: 2 Resolved: 2 Chronic Nonspecific chest pain (1 source) Chest pain; Translations: [Chest pain, unspecified] 11-23-2020 Episodic Osteoarthritis (1 source) Arthritis; Translations: [Unspecified osteoarthritis, unspecified site] 11-23-2020 Chronic Other circulatory disease (2 sources) Arterial, [...] ORIGN] Onset: 2 Resolved: 2 Chronic Other lower respiratory disease (2 sources) Dyspnea; Translations: [Shortness of breath] 12-21-2023 Episodic Other nutritional; endocrine; and metabolic disorders (20 sources) Hypomagnesemia; Translations: [Hypomagnesemia] Chronic Other nutritional; endocrine; and metabolic disorders (20 sources) Obese class I; Translations: [Body mass index (BMI) 31.0-31.9, adult] Chronic Other nutritional; endocrine; and metabolic disorders (2 sources) Body mass index 30+ - obesity; Translations: [Obesity, unspecified] Onset: 1 01-11-2021 Chronic Other nutritional; endocrine; and metabolic disorders (1 source) Obesity; Translations: [Obesity, unspecified] Onset: 2 01-15-2022 Chronic Other screening for suspected conditions (not [...] NEOPLSM TRACH BRON LNG] Onset: 3 Episodic Residual codes; unclassified (1 source) Localized edema; Translations: [Localized edema] 12-21-2023 Episodic Unclassified (3 sources) CONTACT W/AND (SUSP) [...] Other fatigue; Translations: [Weakness] Onset: 09-13-2022 Episodic Mood disorders (1 source) Mood disorders Onset: 12-28-2020 12-28-2020 Other circulatory disease (4 sources) Hemorrhage, not [...] [Volume fraction] 28.8 % Critically low 36.0-48.0 [facility] Comment on above: Performed By: #### H H #### [facility] [address] [place] [address] Dr. Ember Teague Hemoglobin (Bld) [Mass/Vol] 9.6 g/dL Critically low 12.0-16.0 [facility] Comment on above: Performed By: #### H H #### [facility] [address] [place] [address] Dr. Ember Teague MCH (RBC) [Entitic mass] 30.7 pg Normal 26.7-34.0 [facility] Comment on above: Performed By: #### H H #### [facility] [address] [place] [address] Dr. Ember Teague MCHC (RBC) [Mass/Vol] 33.3 g/dL Normal 29.9-35.2 [facility] Comment on above: Performed By: #### H H #### [facility] [address] [address] [address] Ember Teague MCV (RBC) [Entitic vol] 92.0 fL Normal 81.0-99.0 [facility] Comment on above: Performed By: #### H H #### [facility] [address] [place] [address] Dr. Ember Teague PLT 214 103/ul Normal 150-450 [facility] Comment on above: Performed By: #### H H #### [facility] [address] [address] [address] Ember Teague RBC 3.13 106/ul Critically low 4.20-5.40 [facility] Comment on above: Performed By: #### H H #### [facility] [address] [place] [address] Dr. Ember Teague WBC 7.4 103/ul Normal 4.0-11.0 [facility] Comment on above: Performed By: #### H H #### [facility] [address] [place] [address] Dr. Ember Teague MAGNESIUMon 01-22-2023 Magnesium [Mass/Vol] 1.8 mg/dL Normal 1.8-2.4 [facility] Comment on above: Performed By: #### M G, RENAL #### [facility] [address] [place] [address] Dr. Ember Teague RENAL FUNCTION PANELon 01-22 Albumin [Mass/Vol] 3.6 g/dL Normal 3.4-5.0 [facility] Comment on above: Performed By: #### M G, RENAL #### [facility] [address] [place] [address] Dr. Ember Teague Calcium [Mass/Vol] 9.7 mg/dL Normal 8.5-10.1 [facility] Comment on above: Performed By: #### M G, RENAL #### [facility] [address] [place] [address] Dr. Ember Teague Chloride [Moles/Vol] 105 mmol/L Normal 98-107 [facility] Comment on above: Performed By: #### M G, RENAL #### [facility] [address] [place] [address] Dr. Ember Teague CO2 [Moles/Vol] 22.6 mmol/L Normal 21.0-32.0 [facility] Comment on above: Performed By: #### M G, RENAL #### [facility] [address] [place] [address] Dr. Ember Teague Creatinine [Mass/Vol] 2.18 mg/dL Critically high 0.55-1.02 [facility] Comment on above: Performed By: #### M G, RENAL #### [facility] [address] [address] [address] Ember Teague EGFR-AF BELIZEAN 26 mL/min/1.73m2 Critically low >=60 [facility] Comment on above: Performed By: #### M G, RENAL #### [facility] [address] [address] [address] Ember Teague EGFR-NON AF BELIZEAN 22 mL/min/1.73m2 Critically low >=60 [facility] Comment on above: Performed By: #### M G, RENAL #### [facility] [address] [address] [address] Ember Teague Glucose [Mass/Vol] 134 mg/dL Critically high 74-106 [facility] Comment on above: Performed By: #### M G, RENAL #### [facility] [address] [address] [address] Ember Teague Phosphate [Mass/Vol] 4.6 mg/dL Normal 2.6-4.7 [facility] Comment on above: Performed By: #### M G, RENAL #### [facility] [address] [address] [address] Ember Teague Potassium [Moles/Vol] 5.1 mmol/L Normal 3.5-5.1 [facility] Comment on above: Performed By: #### M G, RENAL #### [facility] [address] [address] [address] Ember Teague Sodium [Moles/Vol] 138 mmol/L Normal 136-145 [facility] Comment on above: Performed By: #### M G, RENAL #### [facility] [address] [address] [address] Ember Teague Urea nitrogen [Mass/Vol] 61.0 mg/dL Critically high 7.0-18.0 [facility] Comment on above: Performed By: #### M G, RENAL #### [facility] [address] [address] [address] Ember Teague MG MAMM SCREEN 3D MAY CADon 12-17-2022 MG MAMM SCREEN 3D MAY CAD Patient: KYLAH ROBIN Exam Date: 12/17/2022 : 1945 Gender:F Ordering : DR DHRUV RUBI . Admission #: [id number] Family : Order #: [id number] CLICK HERE TO VIEW EXAM RADIOLOGY REPORT [...] lung cancer at age 61. LOCATION: [facility] BREAST COMPOSITION: Scattered areas fibroglandular density. [...] MD on 12/17/2022 at 11:59 Normal [facility] FERRITINon 12-10-2022 Ferritin [Mass/Vol] 681.0 ng/mL Critically high 8.0-252.0 [facility] Comment on above: Performed By: #### P THINT #### [facility] [address] [place] [address] Dr. Ember Teague HEMOGRAM AND PLATELon 2022 Hematocrit (Bld) [Volume fraction] 27.1 % Critically low 36.0-48.0 [facility] Comment on above: Performed By: #### C VDTBH #### [facility] [address] [address] [address] Ember Teague Hemoglobin (Bld) [Mass/Vol] 9.7 g/dL Critically low 12.0-16.0 [facility] Comment on above: Performed By: #### C VDTBH #### [facility] [address] [address] [address] Ember Teague MCH (RBC) [Entitic mass] 31.4 pg Normal 26.7-34.0 [facility] Comment on above: Performed By: #### C VDTBH #### [facility] [address] [place] [address] Dr. Ember Teague MCHC (RBC) [Mass/Vol] 35.8 g/dL Critically high 29.9-35.2 [facility] Comment on above: Performed By: #### C VDTBH #### [facility] [address] [place] [address] Dr. Ember Teague MCV (RBC) [Entitic vol] 87.7 fL Normal 81.0-99.0 [facility] Comment on above: Performed By: #### C VDTBH #### [facility] [address] [place] [address] Dr. Ember Teague PLT 218 103/ul Normal 150-450 [facility] Comment on above: Performed By: #### C VDTBH #### [facility] [address] [place] [address] Dr. Ember Teague RBC 3.09 106/ul Critically low 4.20-5.40 [facility] Comment on above: Performed By: #### C VDTBH #### [facility] [address] [place] [address] Dr. Ember Teague WBC 6.6 103/ul Normal 4.0-11.0 [facility] Comment on above: Performed By: #### C VDTBH #### [facility] [address] [place] [address] Dr. Ember Teague IRON AND TIBCon 12-10-2022 % SATURATION 30.2 % Normal [facility] Comment on above: Performed By: #### P THINT #### [facility] [address] [place] [address] Dr. Ember Teague Iron [Mass/Vol] 84.0 ug/dL Normal 50.0-170.0 [facility] Comment on above: Performed By: #### P THINT #### [facility] [address] [address] [address] Ember Teague TIBC DIRECT 278.0 ug/dL Normal 250.0-450.0 [facility] Comment on above: Performed By: #### P THINT #### [facility] [address] [address] [address] Ember Teague XR FOOT MAY MIN [...] BENI APARICIO Date: 2022-11-20 14:03 Normal [facility] HEMOGRAM AND PLATELon 2022 Hematocrit (Bld) [Volume fraction] 27.7 % Critically low 36.0-48.0 [facility] Comment on above: Performed By: #### R ENAL #### [facility] [address] [address] [address] Ember Teague Hemoglobin (Bld) [Mass/Vol] 10.0 g/dL Critically low 12.0-16.0 [facility] Comment on above: Performed By: #### R ENAL #### [facility] [address] [address] [address] Ember Teague MCH (RBC) [Entitic mass] 31.6 pg Normal 26.7-34.0 [facility] Comment on above: Performed By: #### R ENAL #### [facility] [address] [address] [address] Ember Teague MCHC (RBC) [Mass/Vol] 36.1 g/dL Critically high 29.9-35.2 [facility] Comment on above: Performed By: #### R ENAL #### [facility] [address] [place] [address] Dr. Ember Teague MCV (RBC) [Entitic vol] 87.7 fL Normal 81.0-99.0 [facility] Comment on above: Performed By: #### R ENAL #### [facility] [address] [place] [address] Dr. Ember Teague PLT 182 103/ul Normal 150-450 [facility] Comment on above: Performed By: #### R ENAL #### [facility] [address] [place] [address] Dr. Ember Teague RBC 3.16 106/ul Critically low 4.20-5.40 [facility] Comment on above: Performed By: #### R ENAL #### [facility] [address] [place] [address] Dr. Ember Teague WBC 6.8 103/ul Normal 4.0-11.0 [facility] Comment on above: Performed By: #### R ENAL #### [facility] [address] [place] [address] Dr. Ember Teague PROF CHEM 8 (BAS METB)on Anion gap [Moles/Vol] 17.6 mmol/L Normal [facility] Comment on above: Performed By: #### C VDTBH #### [facility] [address] [place] [address] Dr. Ember Teague Calcium [Mass/Vol] 9.0 mg/dL Normal 8.5-10.1 [facility] Comment on above: Performed By: #### C VDTBH #### [facility] [address] [place] [address] Dr. Ember Teague Chloride [Moles/Vol] 104 mmol/L Normal 98-107 [facility] Comment on above: Performed By: #### C VDTBH #### [facility] [address] [address] [address] Ember Teague CO2 [Moles/Vol] 22.2 mmol/L Normal 21.0-32.0 [facility] Comment on above: Performed By: #### C VDTBH #### [facility] [address] [address] [address] Ember Teague Creatinine [Mass/Vol] 2.03 mg/dL Critically high 0.55-1.02 [facility] Comment on above: Performed By: #### C VDTBH #### [facility] [address] [address] [address] Ember Teague EGFR-AF BELIZEAN 29 mL/min/1.73m2 Critically low >=60 [facility] Comment on above: Performed By: #### C VDTBH #### [facility] [address] [place] [address] Dr. Ember Teague EGFR-NON AF BELIZEAN 24 mL/min/1.73m2 Critically low >=60 [facility] Comment on above: Performed By: #### C VDTBH #### [facility] [address] [address] [address] Ember Teague Glucose [Mass/Vol] 154 mg/dL Critically high 74-106 [facility] Comment on above: Performed By: #### C VDTBH #### [facility] [address] [place] [address] Dr. Ember Teague Potassium [Moles/Vol] 4.8 mmol/L Normal 3.5-5.1 [facility] Comment on above: Performed By: #### C VDTBH #### [facility] [address] [address] [address] Ember Teague Sodium [Moles/Vol] 139 mmol/L Normal 136-145 [facility] Comment on above: Performed By: #### C VDTBH #### [facility] [address] [address] [address] Ember Teague Urea nitrogen [Mass/Vol] 43.0 mg/dL Critically high 7.0-18.0 [facility] Comment on above: Performed By: #### C VDTBH #### [facility] [address] [address] [address] Ember Teague Urea nitrogen/Creatinine [Mass ratio] 21.2 mg/mg Normal [facility] Comment on above: Performed By: #### C VDTBH #### [facility] [address] [address] [address] Ember Teague CULTURE SPUTUMon 10-24-2022 CULTURE SPUTUM Culture Observations : Beta lactamase positive Isolate 1 Haemophilus influenzae Moderate growth of Normal [facility] Comment on above: Performed By: #### R ENAL #### [facility] [address] [address] [address] Ember Teague SPUTUM GRAM STAINon 10-24-19 COMMENTS Normal [facility] Comment on above: Performed By: #### R ENAL #### [facility] [address] [address] [address] Ember Teague DIPHTHEROIDS [facility] [facility] Comment on above: Performed By: #### R ENAL #### [facility] [address] [address] [address] Ember Teague EPITHELIALS >25 Normal [facility] Comment on above: Performed By: #### R ENAL #### [facility] [address] [address] [address] Ember Teague FUNGAL ELEMENTS Normal [facility] Comment on above: Performed By: #### R ENAL #### [facility] [address] [address] [address] Ember Teague GRAM NEG BACILLI [facility] Comment on above: Performed By: #### R ENAL #### [facility] [address] [address] [address] Ember LOCKWOOD NEG DIPPLOCOCCI FEW Normal [facility] Comment on above: Performed By: #### R ENAL #### [facility] [address] [address] [address] Ember Teague GRAM POS BACILLI FEW [facility] Comment on above: Performed By: #### R ENAL #### [facility] [address] [address] [address] Ember Teague GRAM POSITIVE COCCI MANY Normal [facility] Comment on above: Performed By: #### R ENAL #### [facility] [address] [address] [address] Ember Teague WBC (Bld) [#/Vol] 10*3/uL Normal [facility] Comment on above: Performed By: #### R ENAL #### [facility] [address] [address] [address] Ember Teague XR CHEST 2 Von [...] ANGELINA BRISENO Date: 2022-10-24 16:22 Normal [facility] FERRITINon 09-18-2022 Ferritin [Mass/Vol] 612.0 ng/mL Critically high 8.0-252.0 [facility] Comment on above: Performed By: #### F ERR, FETIBC #### [facility] [address] [place] [address] Dr. Ember Teague HEMOGRAM AND PLATELon 2021 Hematocrit (Bld) [Volume fraction] 28.1 % Critically low 36.0-48.0 [facility] Comment on above: Performed By: #### C BC #### [facility] [address] [address] [address] Ember Teague Hemoglobin (Bld) [Mass/Vol] 9.7 g/dL Critically low 12.0-16.0 [facility] Comment on above: Performed By: #### C BC #### [facility] [address] [address] [address] Ember Teague MCH (RBC) [Entitic mass] 31.3 pg Normal 26.7-34.0 [facility] Comment on above: Performed By: #### C BC #### [facility] [address] [place] [address] Dr. Ember Teague MCHC (RBC) [Mass/Vol] 34.5 g/dL Normal 29.9-35.2 [facility] Comment on above: Performed By: #### C BC #### [facility] [address] [place] [address] Dr. Ember Teague MCV (RBC) [Entitic vol] 90.6 fL Normal 81.0-99.0 [facility] Comment on above: Performed By: #### C BC #### [facility] [address] [place] [address] Dr. Ember Teague PLT 183 103/ul Normal 150-450 [facility] Comment on above: Performed By: #### C BC #### [facility] [address] [place] [address] Dr. Ember Teague RBC 3.10 106/ul Critically low 4.20-5.40 [facility] Comment on above: Performed By: #### C BC #### [facility] [address] [place] [address] Dr. Ember Teague WBC 7.2 103/ul Normal 4.0-11.0 [facility] Comment on above: Performed By: #### C BC #### [facility] [address] [place] [address] Dr. Ember Teague IRON AND TIBCon 09-18-2022 % SATURATION 36.0 % Normal [facility] Comment on above: Performed By: #### F ERR, FETIBC #### [facility] [address] [place] [address] Dr. Ember Teague Iron [Mass/Vol] 77.0 ug/dL Normal 50.0-170.0 [facility] Comment on above: Performed By: #### F ERR, FETIBC #### [facility] [address] [place] [address] Dr. Ember Teague TIBC DIRECT 214.0 ug/dL Critically low 250.0-450.0 [facility] Comment on above: Performed By: #### F ERR, FETIBC #### [facility] [address] [address] [address] Ember Teague RENAL FUNCTION PANELon 09-18 Albumin [Mass/Vol] 3.7 g/dL Normal 3.4-5.0 [facility] Comment on above: Performed By: #### R ENAL #### [facility] [address] [address] [address] Ember Teague Calcium [Mass/Vol] 9.5 mg/dL Normal 8.5-10.1 [facility] Comment on above: Performed By: #### R ENAL #### [facility] [address] [place] [address] Dr. Ember Teague Chloride [Moles/Vol] 103 mmol/L Normal 98-107 [facility] Comment on above: Performed By: #### R ENAL #### [facility] [address] [place] [address] Dr. Ember Teague CO2 [Moles/Vol] 21.1 mmol/L Normal 21.0-32.0 [facility] Comment on above: Performed By: #### R ENAL #### [facility] [address] [place] [address] Dr. Ember Teague Creatinine [Mass/Vol] 1.85 mg/dL Critically high 0.55-1.02 [facility] Comment on above: Performed By: #### R ENAL #### [facility] [address] [address] [address] Ember Teague EGFR-AF BELIZEAN 32 mL/min/1.73m2 Critically low >=60 [facility] Comment on above: Performed By: #### R ENAL #### [facility] [address] [place] [address] Dr. Ember Teague EGFR-NON AF BELIZEAN 26 mL/min/1.73m2 Critically low >=60 [facility] Comment on above: Performed By: #### R ENAL #### [facility] [address] [place] [address] Dr. Ember Teague Glucose [Mass/Vol] 183 mg/dL Critically high 74-106 [facility] Comment on above: Performed By: #### R ENAL #### [facility] [address] [place] [address] Dr. Ember Teague Phosphate [Mass/Vol] 3.7 mg/dL Normal 2.6-4.7 [facility] Comment on above: Performed By: #### R ENAL #### [facility] [address] [place] [address] Dr. Ember Teague Potassium [Moles/Vol] 4.9 mmol/L Normal 3.5-5.1 [facility] Comment on above: Performed By: #### R ENAL #### [facility] [address] [place] [address] Dr. Ember Teague Sodium [Moles/Vol] 138 mmol/L Normal 136-145 [facility] Comment on above: Performed By: #### R ENAL #### [facility] [address] [place] [address] Dr. Ember Teague Urea nitrogen [Mass/Vol] 40.0 mg/dL Critically high 7.0-18.0 [facility] Comment on above: Performed By: #### R ENAL #### [facility] [address] [place] [address] Dr. Ember Teague CULTURE URINEon 09-15-2022 CULTURE [...] F Trimethoprim/Sulfamet hoxazole <=20 S F Normal [facility] Comment on above: Performed By: #### R ENAL #### [facility] [address] [address] [address] Ember Teague BNPon 09-11-2022 Natriuretic peptide B (Bld) [Mass/Vol] 408.0 pg/mL Normal <=1,800.0 [facility] Comment on above: Performed By: #### P THINT #### [facility] [address] [place] [address] Dr. Ember Teague CBC AUTO DIFFon 09-11-2022 BASO # 0.0 103/ul Normal 0.0-0.1 [facility] Comment on above: Performed By: #### C BC #### [facility] [address] [place] [address] Dr. Ember Teague Basophils/100 WBC (Bld) 0.3 % Normal 0.2-2.0 [facility] Comment on above: Performed By: #### C BC #### [facility] [address] [place] [address] Dr. Ember Teague EO # 0.1 103/ul Normal 0.0-0.7 [facility] Comment on above: Performed By: #### C BC #### [facility] [address] [place] [address] Dr. Ember Teague Eosinophils/100 WBC (Bld) 1.9 % Normal 0.9-7.0 [facility] Comment on above: Performed By: #### C BC #### [facility] [address] [place] [address] Dr. Ember Teague Erythrocyte distribution width (RBC) [Ratio] 15.2 % Critically high 11.0-15.0 [facility] Comment on above: Performed By: #### C BC #### [facility] [address] [place] [address] Dr. Ember Teague Hematocrit (Bld) [Volume fraction] 26.6 % Critically low 36.0-48.0 [facility] Comment on above: Performed By: #### C BC #### [facility] [address] [place] [address] Dr. Ember Teague Hemoglobin (Bld) [Mass/Vol] 9.0 g/dL Critically low 12.0-16.0 [facility] Comment on above: Performed By: #### C BC #### [facility] [address] [place] [address] Dr. Ember Teague IG # 0.02 10e3/ul Normal 0.00-0.03 [facility] Comment on above: Performed By: #### C BC #### [facility] [address] [place] [address] Dr. Ember Teague IG % 0.3 % Normal 0.0-0.5 [facility] Comment on above: Performed By: #### C BC #### [facility] [address] [place] [address] Dr. Ember Teague LYMPH # 1.9 103/ul Normal 1.2-3.8 [facility] Comment on above: Performed By: #### C BC #### [facility] [address] [place] [address] Dr. Ember Teague Lymphocytes/100 WBC (Bld) 32.4 % Normal 20.5-60.0 [facility] Comment on above: Performed By: #### C BC #### [facility] [address] [place] [address] Dr. Ember Teague MANUAL DIFF REQ NO Normal [facility] Comment on above: Performed By: #### C BC #### [facility] [address] [place] [address] Dr. Ember Teague MCH (RBC) [Entitic mass] 31.1 pg Normal 26.7-34.0 [facility] Comment on above: Performed By: #### C BC #### [facility] [address] [place] [address] Dr. Ember Teague MCHC (RBC) [Mass/Vol] 33.8 g/dL Normal 29.9-35.2 [facility] Comment on above: Performed By: #### C BC #### [facility] [address] [place] [address] Dr. Ember Teague MCV (RBC) [Entitic vol] 92.0 fL Normal 81.0-99.0 [facility] Comment on above: Performed By: #### C BC #### [facility] [address] [address] [address] Ember Teague MONO # 0.6 103/ul Normal 0.3-0.8 [facility] Comment on above: Performed By: #### C BC #### [facility] [address] [address] [address] Ember Teague Monocytes/100 WBC (Bld) 10.0 % Normal 1.7-12.0 [facility] Comment on above: Performed By: #### C BC #### [facility] [address] [place] [address] Dr. Ember Teague NEUT # 3.2 103/ul Normal 1.4-6.5 [facility] Comment on above: Performed By: #### C BC #### [facility] [address] [place] [address] Dr. Ember Teague Neutrophils/100 WBC (Bld) 55.1 % Normal 43.0-75.0 [facility] Comment on above: Performed By: #### C BC #### [facility] [address] [place] [address] Dr. Ember Teague Platelet mean volume (Bld) [Entitic vol] 9.4 fL Critically low 9.5-13.5 [facility] Comment on above: Performed By: #### C BC #### [facility] [address] [place] [address] Dr. Ember Teague PLT 196 103/ul Normal 150-450 [facility] Comment on above: Performed By: #### C BC #### [facility] [address] [place] [address] Dr. Ember Teague RBC 2.89 106/ul Critically low 4.20-5.40 [facility] Comment on above: Performed By: #### C BC #### [facility] [address] [place] [address] Dr. Ember Teague WBC 5.8 103/ul Normal 4.0-11.0 [facility] Comment on above: Performed By: #### C BC #### [facility] [address] [place] [address] Dr. Ember Teague PROF 14(COMP METB)on 022 Albumin [Mass/Vol] 3.7 g/dL Normal 3.4-5.0 [facility] Comment on above: Performed By: #### P THINT #### [facility] [address] [place] [address] Dr. Ember Teague Albumin/Globulin [Mass ratio] 1.0 {ratio} Normal [facility] Comment on above: Performed By: #### P THINT #### [facility] [address] [address] [address] Ember Teague ALP [Catalytic activity/Vol] 79 U/L Normal 46-116 [facility] Comment on above: Performed By: #### P THINT #### [facility] [address] [place] [address] Dr. Ember Teague ALT [Catalytic activity/Vol] 24 U/L Normal 14-59 [facility] Comment on above: Performed By: #### P THINT #### [facility] [address] [place] [address] Dr. Ember Teague Anion gap [Moles/Vol] 12.8 mmol/L Normal [facility] Comment on above: Performed By: #### P THINT #### [facility] [address] [place] [address] Dr. Ember Teague AST [Catalytic activity/Vol] 17 U/L Normal 15-37 [facility] Comment on above: Performed By: #### P THINT #### [facility] [address] [place] [address] Dr. Ember Teague Bilirubin [Mass/Vol] 0.5 mg/dL Normal 0.2-1.0 [facility] Comment on above: Performed By: #### P THINT #### [facility] [address] [place] [address] Dr. Ember Teague Calcium [Mass/Vol] 9.4 mg/dL Normal 8.5-10.1 [facility] Comment on above: Performed By: #### P THINT #### [facility] [address] [place], [place] [id number] Dr. Ember Teague Chloride [Moles/Vol] 101 mmol/L Normal 98-107 [facility] Comment on above: Performed By: #### P THINT #### [facility] [address] [address] [address] Ember Teague CO2 [Moles/Vol] 24.3 mmol/L Normal 21.0-32.0 [facility] Comment on above: Performed By: #### P THINT #### [facility] [address] [address] [address] Ember Teague Creatinine [Mass/Vol] 2.84 mg/dL Critically high 0.55-1.02 [facility] Comment on above: Performed By: #### P THINT #### [facility] [address] [place] [address] Dr. Ember Teague EGFR-AF BELIZEAN 20 mL/min/1.73m2 Critically low >=60 [facility] Comment on above: Performed By: #### P THINT #### [facility] [address] [place] [address] Dr. Ember Teague EGFR-NON AF BELIZEAN 16 mL/min/1.73m2 Critically low >=60 [facility] Comment on above: Performed By: #### P THINT #### [facility] [address] [place] [address] Dr. Ember Teague Globulin (S) [Mass/Vol] 3.7 g/dL Normal [facility] Comment on above: Performed By: #### P THINT #### [facility] [address] [place] [address] Dr. Ember Teague Glucose [Mass/Vol] 174 mg/dL Critically high 74-106 [facility] Comment on above: Performed By: #### P THINT #### [facility] [address] [address] [address] Ember Teague Potassium [Moles/Vol] 5.1 mmol/L Normal 3.5-5.1 [facility] Comment on above: Performed By: #### P THINT #### [facility] [address] [place] [address] Dr. Ember Teague Protein [Mass/Vol] 7.4 g/dL Normal 6.4-8.2 [facility] Comment on above: Performed By: #### P THINT #### [facility] [address] [address] [address] Ember Teague Sodium [Moles/Vol] 133 mmol/L Critically low 136-145 [facility] Comment on above: Performed By: #### P THINT #### [facility] [address] [address] [address] Ember Teague Urea nitrogen [Mass/Vol] 68.0 mg/dL Critically high 7.0-18.0 [facility] Comment on above: Performed By: #### P THINT #### [facility] [address] [place] [address] Dr. Ember Teague Urea nitrogen/Creatinine [Mass ratio] 23.9 mg/mg Normal [facility] Comment on above: Performed By: #### P THINT #### [facility] [address] [place] [address] Dr. Ember Teague TROPONIN, HIGH SENSITIVITYon 09-11-2022 HSTROP 9.1 pg/mL Normal 4.0-51.3 [facility] Comment on above: Result Comment: CUT- OFF POINTS HAVE BEEN ESTABLISHED BASED ON THE FOURTH UNIVERSAL DEFINITIONS OF MYOCARDIAL INFARCTION. THE UPPER REFERENCE LIMIT (URL) OF TROPONIN, DEFINED THE 99TH PERCENTILE OF cTnI DISTRIBUTION IN A REFERENCE POPULATION, HAS BEEN CONFIRMED THE DECISION THRESHOLD FOR [place] DIAGNOSIS. Performed By: #### P THINT #### [facility] [address] [place] [address] Dr. Ember Teague UA RANDOM W/MICROSCOPICon BACTERIA NONE SEEN Normal NONE SEEN [facility] Comment on above: Performed By: #### C VDTBH #### [facility] [address] [place] [address] Dr. Ember Teague Bilirubin Ql (U) Negative Normal NEGATIVE [facility] Comment on above: Performed By: #### C VDTBH #### [facility] [address] [place] [address] Dr. Ember Teague CAST NONE SEEN Normal NONE SEEN [facility] Comment on above: Performed By: #### C VDTBH #### [facility] [address] [place] [address] Dr. Ember Teague Clarity (U) CLEAR Normal CLEAR [facility] Comment on above: Performed By: #### C VDTBH #### [facility] [address] [place] [address] Dr. Ember Teague Color (U) LT. YELLOW Normal YELLOW [facility] Comment on above: Performed By: #### C VDTBH #### [facility] [address] [place] [address] Dr. Ember Teague Crystals LM Nom (Urine sed) NONE SEEN Normal NONE SEEN [facility] Comment on above: Performed By: #### C VDTBH #### [facility] [address] [place] [address] Dr. Ember Teague Epithelial cells LM Ql (Urine sed) FEW Abnormal NONE SEEN /RARE [facility] Comment on above: Performed By: #### C VDTBH #### [facility] [address] [place] [address] Dr. Ember Teague Glucose Ql (U) Negative Normal NEGATIVE [facility] Comment on above: Performed By: #### C VDTBH #### [facility] [address] [place] [address] Dr. Ember Teague Hemoglobin Ql (U) Negative Normal NEGATIVE [facility] Comment on above: Performed By: #### C VDTBH #### [facility] [address] [place] [address] Dr. Ember Teague Ketones Ql (U) Negative Normal NEGATIVE [facility] Comment on above: Performed By: #### C VDTBH #### [facility] [address] [place] [address] Dr. Ember Teague LEUKOCYTES Negative Normal NEGATIVE [facility] Comment on above: Performed By: #### C VDTBH #### [facility] [address] [place] [address] Dr. Ember Teague MUCOUS NONE SEEN Normal NONE SEEN [facility] Comment on above: Performed By: #### C VDTBH #### [facility] [address] [place] [address] Dr. Ember Teague Nitrite Ql (U) Negative Normal NEGATIVE [facility] Comment on above: Performed By: #### C VDTBH #### [facility] [address] [place] [address] Dr. Ember Teague pH (U) 5.5 [pH] Normal 5-9 [facility] Comment on above: Performed By: #### C VDTBH #### [facility] [address] [place] [address] Dr. Ember Teague RBC NONE SEEN Abnormal 0-2 [facility] Comment on above: Performed By: #### C VDTBH #### [facility] [address] [place] [address] Dr. Ember Teague SPEC GRAVITY 1.010 Normal 1.005-<=1.025 [facility] Comment on above: Performed By: #### C VDTBH #### [facility] [address] [place] [address] Dr. Ember Teague UA PROTEIN Negative Normal NEGATIVE/ TRACE [facility] Comment on above: Performed By: #### C VDTBH #### [facility] [address] [place] [address] Dr. Ember Teague Urobilinogen Qn (U) 0.2 {Esau'U}/dL Normal 0.2 - 1. 0 [facility] Comment on above: Performed By: #### C VDTBH #### [facility] [address] [place] [address] Dr. Ember Teague WBC NONE SEEN Normal NONE SEEN [facility] Comment on above: Performed By: #### C VDTBH #### [facility] [address] [place] [address] Dr. Ember Teague CBC AUTO DIFFon 08-13-2022 BASO # 0.0 103/ul Normal 0.0-0.1 [facility] Comment on above: Performed By: #### C BC #### [facility] [address] [place] [address] Dr. Ember Teague Basophils/100 WBC (Bld) 0.3 % Normal 0.2-2.0 [facility] Comment on above: Performed By: #### C BC #### [facility] [address] [place] [address] Dr. Ember Teague EO # 0.2 103/ul Normal 0.0-0.7 [facility] Comment on above: Performed By: #### C BC #### [facility] [address] [place] [address] Dr. Ember Teague Eosinophils/100 WBC (Bld) 3.7 % Normal 0.9-7.0 [facility] Comment on above: Performed By: #### C BC #### [facility] [address] [place] [address] Dr. Ember Teague Erythrocyte distribution width (RBC) [Ratio] 15.0 % Normal 11.0-15.0 [facility] Comment on above: Performed By: #### C BC #### [facility] [address] [place] [address] Dr. Ember Teague Hematocrit (Bld) [Volume fraction] 27.9 % Critically low 36.0-48.0 [facility] Comment on above: Performed By: #### C BC #### [facility] [address] [place] [address] Dr. Ember Teague Hemoglobin (Bld) [Mass/Vol] 9.7 g/dL Critically low 12.0-16.0 [facility] Comment on above: Performed By: #### C BC #### [facility] [address] [place] [address] Dr. Ember Teague IG # 0.01 10e3/ul Normal 0.00-0.03 [facility] Comment on above: Performed By: #### C BC #### [facility] [address] [place] [address] Dr. Ember Teague IG % 0.2 % Normal 0.0-0.5 [facility] Comment on above: Performed By: #### C BC #### [facility] [address] [place] [address] Dr. Ember Teague LYMPH # 1.9 103/ul Normal 1.2-3.8 [facility] Comment on above: Performed By: #### C BC #### [facility] [address] [place] [address] Dr. Ember Teague Lymphocytes/100 WBC (Bld) 32.2 % Normal 20.5-60.0 [facility] Comment on above: Performed By: #### C BC #### [facility] [address] [place] [address] Dr. Ember Teague MANUAL DIFF REQ NO Normal [facility] Comment on above: Performed By: #### C BC #### [facility] [address] [place] [address] Dr. Ember Teague MCH (RBC) [Entitic mass] 31.4 pg Normal 26.7-34.0 [facility] Comment on above: Performed By: #### C BC #### [facility] [address] [place] [address] Dr. Ember Teague MCHC (RBC) [Mass/Vol] 34.8 g/dL Normal 29.9-35.2 [facility] Comment on above: Performed By: #### C BC #### [facility] [address] [place] [address] Dr. Ember Teague MCV (RBC) [Entitic vol] 90.3 fL Normal 81.0-99.0 [facility] Comment on above: Performed By: #### C BC #### [facility] [address] [place] [address] Dr. Ember Teague MONO # 0.6 103/ul Normal 0.3-0.8 [facility] Comment on above: Performed By: #### C BC #### [facility] [address] [place] [address] Dr. Ember Teague Monocytes/100 WBC (Bld) 9.8 % Normal 1.7-12.0 [facility] Comment on above: Performed By: #### C BC #### [facility] [facility] [address] [place] [address] Dr. Ember Teague NEUT # 3.2 103/ul Normal 1.4-6.5 [facility] Comment on above: Performed By: #### C BC #### [facility] [address] [place] [address] Dr. Ember Teague Neutrophils/100 WBC (Bld) 53.8 % Normal 43.0-75.0 [facility] Comment on above: Performed By: #### C BC #### [facility] [address] [place] [address] Dr. Ember Teague Platelet mean volume (Bld) [Entitic vol] 10.0 fL Normal 9.5-13.5 [facility] Comment on above: Performed By: #### C BC #### [facility] [address] [place] [address] Dr. Ember Teague PLT 194 103/ul Normal 150-450 [facility] Comment on above: Performed By: #### C BC #### [facility] [address] [place] [address] Dr. Ember Teague RBC 3.09 106/ul Critically low 4.20-5.40 [facility] Comment on above: Performed By: #### C BC #### [facility] [address] [place] [address] Dr. Ember Teague WBC 6.0 103/ul Normal 4.0-11.0 [facility] Comment on above: Performed By: #### C BC #### [facility] [address] [place] [address] Dr. Ember Teague PTH INTACTon 06-26-2022 PTH, Intact 39 pg/mL Normal 15-65 [facility] Comment on above: Performed By: #### P THINT #### [facility] [address] [place] [address] Dr. Ember Teague CBC AUTO DIFFon 06-25-2022 BASO # 0.1 103/ul Normal 0.0-0.1 [facility] Comment on above: Performed By: #### C VDTBH #### [facility] [address] [place] [address] Dr. Ember Teague Basophils/100 WBC (Bld) 0.6 % Normal 0.2-2.0 [facility] Comment on above: Performed By: #### C VDTBH #### [facility] [address] [place] [address] Dr. Ember Teague EO # 0.2 103/ul Normal 0.0-0.7 [facility] Comment on above: Performed By: #### C VDTBH #### [facility] [address] [place] [address] Dr. Ember Teague Eosinophils/100 WBC (Bld) 3.0 % Normal 0.9-7.0 [facility] Comment on above: Performed By: #### C VDTBH #### [facility] [address] [place] [address] Dr. Ember Teague Erythrocyte distribution width (RBC) [Ratio] 14.2 % Normal 11.0-15.0 [facility] Comment on above: Performed By: #### C VDTBH #### [facility] [address] [place] [address] Dr. Ember Teague Hematocrit (Bld) [Volume fraction] 30.9 % Critically low 36.0-48.0 [facility] Comment on above: Performed By: #### C VDTBH #### [facility] [address] [place] [address] Dr. Ember Teague Hemoglobin (Bld) [Mass/Vol] 10.6 g/dL Critically low 12.0-16.0 [facility] Comment on above: Performed By: #### C VDTBH #### [facility] [address] [place] [address] Dr. Ember Teague IG # 0.04 10e3/ul Critically high 0.00-0.03 [facility] Comment on above: Performed By: #### C VDTBH #### [facility] [address] [place] [address] Dr. Ember Teague IG % 0.5 % Normal 0.0-0.5 [facility] Comment on above: Performed By: #### C VDTBH #### [facility] [address] [place] [address] Dr. Ember Teague LYMPH # 2.2 103/ul Normal 1.2-3.8 [facility] Comment on above: Performed By: #### C VDTBH #### [facility] [address] [place] [address] Dr. Ember Teague Lymphocytes/100 WBC (Bld) 27.0 % Normal 20.5-60.0 [facility] Comment on above: Performed By: #### C VDTBH #### [facility] [address] [place] [address] Dr. Ember Teague MANUAL DIFF REQ NO Normal [facility] Comment on above: Performed By: #### C VDTBH #### [facility] [address] [place] [address] Dr. Ember Teague MCH (RBC) [Entitic mass] 31.2 pg Normal 26.7-34.0 [facility] Comment on above: Performed By: #### C VDTBH #### [facility] [address] [place] [address] Dr. Ember Teague MCHC (RBC) [Mass/Vol] 34.3 g/dL Normal 29.9-35.2 [facility] Comment on above: Performed By: #### C VDTBH #### [facility] [address] [place] [address] Dr. Ember Teague MCV (RBC) [Entitic vol] 90.9 fL Normal 81.0-99.0 [facility] Comment on above: Performed By: #### C VDTBH #### [facility] [address] [place] [address] Dr. Ember Teague MONO # 0.7 103/ul Normal 0.3-0.8 [facility] Comment on above: Performed By: #### C VDTBH #### [facility] [address] [place] [address] Dr. Ember Teague Monocytes/100 WBC (Bld) 9.2 % Normal 1.7-12.0 [facility] Comment on above: Performed By: #### C VDTBH #### [facility] [address] [address] [address] Ember Teague NEUT # 4.8 103/ul Normal 1.4-6.5 [facility] Comment on above: Performed By: #### C VDTBH #### [facility] [address] [address] [address] Ember Teague Neutrophils/100 WBC (Bld) 59.7 % Normal 43.0-75.0 [facility] Comment on above: Performed By: #### C VDTBH #### [facility] [address] [address] [address] Ember Teague Platelet mean volume (Bld) [Entitic vol] 9.3 fL Critically low 9.5-13.5 [facility] Comment on above: Performed By: #### C VDTBH #### [facility] [address] [place] [address] Dr. Ember Teague PLT 227 103/ul Normal 150-450 [facility] Comment on above: Performed By: #### C VDTBH #### [facility] [address] [address] [address] Ember Teague RBC 3.40 106/ul Critically low 4.20-5.40 [facility] Comment on above: Performed By: #### C VDTBH #### [facility] [address] [address] [address] Ember Teague WBC 8.0 103/ul Normal 4.0-11.0 [facility] Comment on above: Performed By: #### C VDTBH #### [facility] [address] [place] [address] Dr. Ember Teague MRI LSPINE WO CONon [...] YANET HUERTA Date: 2022-06-25 08:45 Normal [facility] RENAL FUNCTION PANELon 06-25 Albumin [Mass/Vol] 3.9 g/dL Normal 3.4-5.0 [facility] Comment on above: Performed By: #### P THINT #### [facility] [address] [address] [address] Ember Teague Calcium [Mass/Vol] 9.5 mg/dL Normal 8.5-10.1 [facility] Comment on above: Performed By: #### P THINT #### [facility] [address] [address] [address] Ember Teague Chloride [Moles/Vol] 102 mmol/L Normal 98-107 [facility] Comment on above: Performed By: #### P THINT #### [facility] [address] [address] [address] Ember Teague CO2 [Moles/Vol] 23.8 mmol/L Normal 21.0-32.0 [facility] Comment on above: Performed By: #### P THINT #### [facility] [address] [address] [address] Ember Teague Creatinine [Mass/Vol] 1.75 mg/dL Critically high 0.55-1.02 [facility] Comment on above: Performed By: #### P THINT #### [facility] [address] [address] [address] Ember Teague EGFR-AF BELIZEAN 34 mL/min/1.73m2 Critically low >=60 [facility] Comment on above: Performed By: #### P THINT #### [facility] [address] [address] [address] Ember Teague EGFR-NON AF BELIZEAN 28 mL/min/1.73m2 Critically low >=60 [facility] Comment on above: Performed By: #### P THINT #### [facility] [address] [address] [address] Ember Teague Glucose [Mass/Vol] 199 mg/dL Critically high 74-106 [facility] Comment on above: Performed By: #### P THINT #### [facility] [address] [address] [address] Ember Teague Phosphate [Mass/Vol] 4.3 mg/dL Normal 2.6-4.7 [facility] Comment on above: Performed By: #### P THINT #### [facility] [address] [address] [address] Ember Teague Potassium [Moles/Vol] 4.9 mmol/L Normal 3.5-5.1 [facility] Comment on above: Performed By: #### P THINT #### [facility] [address] [address] [address] Ember Teague Sodium [Moles/Vol] 135 mmol/L Critically low 136-145 [facility] Comment on above: Performed By: #### P THINT #### [facility] [address] [address] [address] Ember Teague Urea nitrogen [Mass/Vol] 34.0 mg/dL Critically high 7.0-18.0 [facility] Comment on above: Performed By: #### P THINT #### [facility] [address] [address] [address] Ember Teague VITAMIN D 25 OHon 06-25-2022 VIT D 25-OH 40.6 ng/mL Normal [facility] Comment on above: Performed By: #### P THINT #### [facility] [address] [address] [address] Ember Teague VIT D RANGES SEE BELOW Normal [facility] Comment on above: Result Comment: <20 ng/mL Vit D deficient 20 - <30 ng/mL Vit D insufficient 30 - 100 ng/mL Vit D sufficient >100 ng/mL Potential Toxicity Performed By: #### P THINT #### [facility] [address] [place] [address] Dr. Ember Teague Covid-19 PCR (CVDTB)on 06-07 SARS-CoV-2 (COVID-19) RNA ALEXX+probe Ql (Unsp spec) Not detected Normal NOT DETECTED [facility] Comment on above: Result Comment: This test is not yet approved or cleared by the [place] FDA. When there are no FDA-approved or cleared tests available, and other criteria are met, FDA can make tests available under an emergency access mechanism called an Emergency Use Authorization (EUA). The EUA for this test is supported by the Cooker Operator of Health and Human Service's (HHS's) declaration [...] consistent with SARS-CoV-2. Performed By: #### C VDTBH #### [facility] [address] [place] [address] LSPINE WO CONon [...] by: YANET HUERTA Date: 2022-06-01 18:02 Normal [facility] XR LSPINE MIN 4 VIEWSon 05-07 XR [...] YANET HUERTA Date: 2022-05-21 15:25 Normal [facility] PTH INTACTon 05-03-2022 PTH, Intact 60 pg/mL Normal 15-65 [facility] Comment on above: Performed By: #### C VDTBH #### [facility] [address] [address] [address] Ember Teague VIT D 25-OH LABCORPon 2021 Vitamin D, 25-Hydroxy 26.1 ng/mL Critically low 30.0-100.0 [facility] Comment on above: Result Comment: Sara min D deficiency has been defined by the [place] of Medicine and an Endocrine Society practice guideline as a level of serum 25-OH vitamin D less than 20 ng/mL (1,2). The Endocrine Society went on to further define vitamin D insufficiency as a level between 21 and 29 ng/mL (2). 1. IOM ([place] of Medicine). 2010. Dietary reference intakes for calcium and D. [place]: The National Academies Press. 2. Sherice MF, Wendy NC, Huan ZHONG, et al. Evaluation, treatment, and prevention of vitamin D deficiency: an Endocrine Society clinical practice guideline. JCEM. 2010; 96(7):1911-30. Performed By: #### R ENAL #### [facility] [address] [address] [address] Ember Teague FERRITINon 05-02-2022 Ferritin [Mass/Vol] 590.0 ng/mL Critically high 8.0-252.0 [facility] Comment on above: Performed By: #### R ENAL #### [facility] [address] [address] [address] Ember Teague HEMOGRAM AND PLATELon 2021 Hematocrit (Bld) [Volume fraction] 28.4 % Critically low 36.0-48.0 [facility] Comment on above: Performed By: #### C VDTBH #### [facility] [address] [address] [address] Ember Teague Hemoglobin (Bld) [Mass/Vol] 9.6 g/dL Critically low 12.0-16.0 [facility] Comment on above: Performed By: #### C VDTBH #### [facility] [address] [place] [address] Dr. Ember Teague MCH (RBC) [Entitic mass] 31.0 pg Normal 26.7-34.0 [facility] Comment on above: Performed By: #### C VDTBH #### [facility] [address] [place] [address] Dr. Ember Teague MCHC (RBC) [Mass/Vol] 33.8 g/dL Normal 29.9-35.2 [facility] Comment on above: Performed By: #### C VDTBH #### [facility] [address] [place] [address] Dr. Ember Teague MCV (RBC) [Entitic vol] 91.6 fL Normal 81.0-99.0 [facility] Comment on above: Performed By: #### C VDTBH #### [facility] [address] [place] [address] Dr. Ember Teague PLT 189 103/ul Normal 150-450 [facility] Comment on above: Performed By: #### C VDTBH #### [facility] [address] [place] [address] Dr. Ember Teague RBC 3.10 106/ul Critically low 4.20-5.40 [facility] Comment on above: Performed By: #### C VDTBH #### [facility] [address] [place] [address] Dr. Ember Teague WBC 6.2 103/ul Normal 4.0-11.0 [facility] Comment on above: Performed By: #### C VDTBH #### [facility] [address] [place] [address] Dr. Ember Teague IRON AND TIBCon 05-02-2022 % SATURATION 34.3 % Normal [facility] Comment on above: Performed By: #### R ENAL #### [facility] [address] [place] [address] Dr. Ember Teague Iron [Mass/Vol] 69.0 ug/dL Normal 50.0-170.0 [facility] Comment on above: Performed By: #### R ENAL #### [facility] [address] [address] [address] Ember Teague TIBC DIRECT 201.0 ug/dL Critically low 250.0-450.0 [facility] Comment on above: Performed By: #### R ENAL #### [facility] [address] [address] [address] Ember Teague MAGNESIUMon 05-02-2022 Magnesium [Mass/Vol] 1.7 mg/dL Critically low 1.8-2.4 [facility] Comment on above: Performed By: #### C VDTBH #### [facility] [address] [place] [address] Dr. Ember Teague RENAL FUNCTION PANELon 05-02 Albumin [Mass/Vol] 3.6 g/dL Normal 3.4-5.0 [facility] Comment on above: Performed By: #### C VDTBH #### [facility] [address] [place] [address] Dr. Ember Teague Calcium [Mass/Vol] 9.2 mg/dL Normal 8.5-10.1 [facility] Comment on above: Performed By: #### C VDTBH #### [facility] [address] [place] [address] Dr. Ember Teague Chloride [Moles/Vol] 107 mmol/L Normal 98-107 [facility] Comment on above: Performed By: #### C VDTBH #### [facility] [address] [place] [address] Dr. Ember Teague CO2 [Moles/Vol] 21.2 mmol/L Normal 21.0-32.0 [facility] Comment on above: Performed By: #### C VDTBH #### [facility] [address] [place] [address] Dr. Ember Teague Creatinine [Mass/Vol] 1.75 mg/dL Critically high 0.55-1.02 [facility] Comment on above: Performed By: #### C VDTBH #### [facility] [address] [address] [address] Ember Teague EGFR-AF BELIZEAN 34 mL/min/1.73m2 Critically low >=60 [facility] Comment on above: Performed By: #### C VDTBH #### [facility] [address] [address] [address] Ebmer Teague EGFR-NON AF BELIZEAN 28 mL/min/1.73m2 Critically low >=60 [facility] Comment on above: Performed By: #### C VDTBH #### [facility] [address] [address] [address] Ember Teague Glucose [Mass/Vol] 193 mg/dL Critically high 74-106 [facility] Comment on above: Performed By: #### C VDTBH #### [facility] [address] [place] [address] Dr. Ember Teague Phosphate [Mass/Vol] 4.2 mg/dL Normal 2.6-4.7 [facility] Comment on above: Performed By: #### C VDTBH #### [facility] [address] [address] [address] Ember Teague Potassium [Moles/Vol] 5.1 mmol/L Normal 3.5-5.1 [facility] Comment on above: Performed By: #### C VDTBH #### [facility] [address] [address] [address] Ember Teague Sodium [Moles/Vol] 139 mmol/L Normal 136-145 [facility] Comment on above: Performed By: #### C VDTBH #### [facility] [address] [address] [address] Ember Teague Urea nitrogen [Mass/Vol] 34.0 mg/dL Critically high 7.0-18.0 [facility] Comment on above: Performed By: #### C VDTBH #### [facility] [address] [address] [address] Ember Teague UA RANDOM W/MICROSCOPICon BACTERIA SMALL Abnormal NONE SEEN [facility] Comment on above: Performed By: #### C VDTBH #### [facility] [address] [address] [address] Ember Teague Bilirubin Ql (U) Negative Normal NEGATIVE [facility] Comment on above: Performed By: #### C VDTBH #### [facility] [address] [place] [address] Dr. Ember Teague CAST NONE SEEN Normal NONE SEEN [facility] Comment on above: Performed By: #### C VDTBH #### [facility] [address] [address] [address] Ember Teague Clarity (U) CLEAR Normal CLEAR [facility] Comment on above: Performed By: #### C VDTBH #### [facility] [address] [place] [address] Dr. Ember Teague Color (U) LT. YELLOW Normal YELLOW [facility] Comment on above: Performed By: #### C VDTBH #### [facility] [address] [place] [address] Dr. Ember Teague Crystals LM Nom (Urine sed) NONE SEEN Normal NONE SEEN [facility] Comment on above: Performed By: #### C VDTBH #### [facility] [address] [place] [address] Dr. Ember Teague Epithelial cells LM Ql (Urine sed) MODERATE Abnormal NONE SEEN /RARE [facility] Comment on above: Performed By: #### C VDTBH #### [facility] [address] [place] [address] Dr. Ember Teague Glucose Ql (U) Negative Normal NEGATIVE [facility] Comment on above: Performed By: #### C VDTBH #### [facility] [address] [place] [address] Dr. Ember Teague Hemoglobin Ql (U) Negative Normal NEGATIVE [facility] Comment on above: Performed By: #### C VDTBH #### [facility] [address] [place] [address] Dr. Ember Teague Ketones Ql (U) Negative Normal NEGATIVE [facility] Comment on above: Performed By: #### C VDTBH #### [facility] [address] [place] [address] Dr. Ember Teague LEUKOCYTES TRACE Abnormal NEGATIVE [facility] Comment on above: Performed By: #### C VDTBH #### [facility] [address] [place] [address] Dr. Embre Teague MUCOUS NONE SEEN Normal NONE SEEN [facility] Comment on above: Performed By: #### C VDTBH #### [facility] [address] [place] [address] Dr. Ember Teague Nitrite Ql (U) Negative Normal NEGATIVE [facility] Comment on above: Performed By: #### C VDTBH #### [facility] [address] [place] [address] Dr. Ember Teague pH (U) 5.0 [pH] Normal 5-9 [facility] Comment on above: Performed By: #### C VDTBH #### [facility] [address] [place] [address] Dr. Ember Teague RBC NONE SEEN Abnormal 0-2 [facility] Comment on above: Performed By: #### C VDTBH #### [facility] [address] [place] [address] Dr. Ember Teague SPEC GRAVITY 1.015 Normal 1.005-<=1.025 [facility] Comment on above: Performed By: #### C VDTBH #### [facility] [address] [place] [address] Dr. Ember Teague UA PROTEIN TRACE Normal NEGATIVE/ TRACE [facility] Comment on above: Performed By: #### C VDTBH #### [facility] [address] [place] [address] Dr. Ember Teague Urobilinogen Qn (U) 0.2 {Esau'U}/dL Normal 0.2 - 1. 0 [facility] Comment on above: Performed By: #### C VDTBH #### [facility] [address] [place] [address] Dr. Ember Teague WBC 0-2 Abnormal NONE SEEN [facility] Comment on above: Performed By: #### C VDTBH #### [facility] [address] [address] [address] Ember Teague URIC ACID SERUMon 05-02-2022 Urate [Mass/Vol] 4.4 mg/dL Normal 2.6-6.0 [facility] Comment on above: Performed By: #### C BC #### [facility] [address] [address] [address] Ember Teague URINE T PROTEIN CREAT RATIOo n 05-02-2022 Protein (U) [Mass/Vol] 33.7 mg/dL Critically high <=12.0 [facility] Comment on above: Performed By: #### C VDTBH #### [facility] [address] [address] [address] Ember Teague UR PROT CREAT RAT 0.69 Normal [facility] Comment on above: Performed By: #### C VDTBH #### [facility] [address] [address] [address] Ember Teague URINE CREAT 48.93 mg/dL Normal 20.00-300.00 [facility] Comment on above: Performed By: #### C VDTBH #### [facility] [address] [address] [address] Ember Teague Vital Signs Date Time Vital Sign Value Performing Clinician Facility 11-18-2023 10:00-0500 Body height 168.91 cm Ron Dore[facility] Other [facility] 11-18-2023 10:00-0500 Body mass index (BMI) [Ratio] 29.85 kg/m2 Ron Doreen Other [facility] 11-18-2023 10:00-0500 Body temperature 97.3 [degF] Ron Doreen Other [facility] 11-18-2023 10:00-0500 Body weight 85.19 kg Ron Doreen Other [facility] 11-18-2023 10:00-0500 Diastolic blood pressure 79 mm[Hg] Ron Doreen Other [facility] 11-18-2023 10:00-0500 Respiratory rate 18 /min Ron Doreen Other [facility] 11-18-2023 10:00-0500 SaO2% (BldA) [Mass fraction] 98 % Ron Doreen Other [facility] 11-18-2023 10:00-0500 Systolic blood pressure 149 mm[Hg] Ron Doreen Other [facility] 11-04-2023 11:00-0500 Body height 168.91 cm Ron Doreen Other [facility] 11-04-2023 11:00-0500 Body mass index (BMI) [Ratio] 30.17 kg/m2 Ron Doreen Other [facility] 11-04-2023 11:00-0500 Body temperature 97.6 [degF] Ron Doreen Other [facility] 11-04-2023 11:00-0500 Body weight 86.09 kg Ron Doreen Other [facility] 11-04-2023 11:00-0500 Diastolic blood pressure 76 mm[Hg] Ron Doreen Other [facility] 11-04-2023 11:00-0500 Respiratory rate 18 /min Ron Doreen Other [facility] 11-04-2023 11:00-0500 SaO2% (BldA) [Mass fraction] 98 % Ron Doreen Other [facility] 11-04-2023 11:00-0500 Systolic blood pressure 153 mm[Hg] Ron Doreen Other [facility] 10-15-2023 13:00-0500 Body height 168.91 cm Ron Doreen Other [facility] 10-15-2023 13:00-0500 Body mass index (BMI) [Ratio] 29.82 kg/m2 Ron Doreen Other [facility] 10-15-2023 13:00-0500 Body temperature 97.5 [degF] Ron Doreen Other [facility] 10-15-2023 13:00-0500 Body weight 85.1 kg Ron Doreen Other [facility] 10-15-2023 13:00-0500 Diastolic blood pressure 68 mm[Hg] Ron Doreen Other [facility] 10-15-2023 13:00-0500 Respiratory rate 18 /min Ron Doreen Other [facility] 10-15-2023 13:00-0500 SaO2% (BldA) [Mass fraction] 98 % Ron Doreen Other [facility] 10-15-2023 13:00-0500 Systolic blood pressure 113 mm[Hg] Ron Doreen Other [facility] 08-27-2023 09:40-0500 Body height 168.91 cm Azduc Mensahs Other [facility] 08-27-2023 09:40-0500 Body mass index (BMI) [Ratio] 30.2 kg/m2 Azduc Bakjuniors Other [facility] 08-27-2023 09:40-0500 Body temperature 96.7 [degF] Azduc Bakjuniors Other [facility] 08-27-2023 09:40-0500 Body weight 86.18 kg Azduc Mensahs Other [facility] 08-27-2023 09:40-0500 Diastolic blood pressure 72 mm[Hg] Azduc Mensahs Other [facility] 08-27-2023 09:40-0500 Respiratory rate 18 /min Mary Anne Bakjuniors Other [facility] 08-27-2023 09:40-0500 SaO2% (BldA) [Mass fraction] 98 % Azduc Bakhous Other [facility] Other 08-27-2023 09:40-0500 Systolic blood pressure 153 mm[Hg] Aziz Bakhous Other [facility] 08-15-2023 10:20-0500 Body height 168.91 cm Ron Doreen Other [facility] 08-15-2023 10:20-0500 Body mass index (BMI) [Ratio] 30.2 kg/m2 Ron Doreen Other [facility] 08-15-2023 10:20-0500 Body temperature 97.1 [degF] Ron Doreen Other [facility] 08-15-2023 10:20-0500 Body weight 86.18 kg Ron Doreen Other [facility] 08-15-2023 10:20-0500 Diastolic blood pressure 79 mm[Hg] Ron Doreen Other [facility] 08-15-2023 10:20-0500 Respiratory rate 18 /min Ron Doreen Other [facility] 08-15-2023 10:20-0500 SaO2% (BldA) [Mass fraction] 98 % Ron Doreen Other [facility] 08-15-2023 10:20-0500 Systolic blood pressure 164 mm[Hg] Ron Doreen Other [facility] 08-13-2023 15:40-0500 Body height 168.91 cm Ron Doreen Other [facility] 08-13-2023 15:40-0500 Body mass index (BMI) [Ratio] 30.24 kg/m2 Ron Doreen Other [facility] 08-13-2023 15:40-0500 Body temperature 97.2 [degF] Ron Doreen Other [facility] 08-13-2023 15:40-0500 Body weight 86.27 kg Ron Doreen Other [facility] 08-13-2023 15:40-0500 Diastolic blood pressure 79 mm[Hg] Ron Doreen Other [facility] 08-13-2023 15:40-0500 Respiratory rate 18 /min Ron Doreen Other [facility] 08-13-2023 15:40-0500 SaO2% (BldA) [Mass fraction] 98 % Ron Doreen Other [facility] 08-13-2023 15:40-0500 Systolic blood pressure 186 mm[Hg] Ron Doreen Other [facility] 08-01-2023 13:00-0400 Body height 168.91 cm Ron Doreen Other [facility] 08-01-2023 13:00-0400 Body mass index (BMI) [Ratio] 30.55 kg/m2 Ron Doreen Other [facility] 08-01-2023 13:00-0400 Body temperature 97.8 [degF] Ron Doreen Other [facility] 08-01-2023 13:00-0400 Body weight 87.18 kg Ron Doreen Other [facility] 08-01-2023 13:00-0400 Diastolic blood pressure 72 mm[Hg] Ron Doreen Other [facility] 08-01-2023 13:00-0400 Respiratory rate 18 /min Ron Doreen Other [facility] 08-01-2023 13:00-0400 SaO2% (BldA) [Mass fraction] 98 % Ron Doreen Other [facility] 08-01-2023 13:00-0400 Systolic blood pressure 160 mm[Hg] Ron Doreen Other [facility] 06-24-2023 11:40-0400 Body height 168.91 cm Ron Doreen Other [facility] 06-24-2023 11:40-0400 Body mass index (BMI) [Ratio] 29.89 kg/m2 Ron Doreen Other [facility] 06-24-2023 11:40-0400 Body temperature 97.3 [degF] Ron Doreen Other [facility] 06-24-2023 11:40-0400 Body weight 85.28 kg Ron Doreen Other [facility] 06-24-2023 11:40-0400 Diastolic blood pressure 75 mm[Hg] Ron Doreen Other [facility] 06-24-2023 11:40-0400 Respiratory rate 18 /min Ron Doreen Other [facility] 06-24-2023 11:40-0400 SaO2% (BldA) [Mass fraction] 99 % Ron Doreen Other [facility] 06-24-2023 11:40-0400 Systolic blood pressure 129 mm[Hg] Ron Doreen Other [facility] 06-06-2023 15:20-0400 Body height 168.91 cm Ron Doreen Other [facility] 06-06-2023 15:20-0400 Body mass index (BMI) [Ratio] 29.92 kg/m2 Ron Doreen Other [facility] 06-06-2023 15:20-0400 Body temperature 96.5 [degF] Ron Doreen Other [facility] 06-06-2023 15:20-0400 Body weight 85.37 kg Ron Doreen Other [facility] 06-06-2023 15:20-0400 Diastolic blood pressure 49 mm[Hg] Ron Doreen Other [facility] 06-06-2023 15:20-0400 Respiratory rate 18 /min Ron Doreen Other [facility] 06-06-2023 15:20-0400 SaO2% (BldA) [Mass fraction] 99 % Ron Doreen Other [facility] 06-06-2023 15:20-0400 Systolic blood pressure 128 mm[Hg] Ron Doreen Other [facility] 04-30-2023 11:40-0400 Body height 168.91 cm Ron Doreen Other [facility] 04-30-2023 11:40-0400 Body mass index (BMI) [Ratio] 30.52 kg/m2 Ron Doreen Other [facility] 04-30-2023 11:40-0400 Body temperature 96.9 [degF] Ron Doreen Other [facility] 04-30-2023 11:40-0400 Body weight 87.09 kg Ron Doreen Other [facility] 04-30-2023 11:40-0400 Diastolic blood pressure 80 mm[Hg] Ron Doreen Other [facility] 04-30-2023 11:40-0400 Respiratory rate 18 /min Ron Doreen Other [facility] 04-30-2023 11:40-0400 SaO2% (BldA) [Mass fraction] 98 % Ron Doreen Other [facility] 04-30-2023 11:40-0400 Systolic blood pressure 150 mm[Hg] Ron Doreen Other [facility] 04-06-2023 09:00-0400 Body height 168.91 cm Ron Doreen Other [facility] 04-06-2023 09:00-0400 Body mass index (BMI) [Ratio] 30.36 kg/m2 Ron Doreen Other [facility] 04-06-2023 09:00-0400 Body weight 86.64 kg Ron Doreen Other [facility] 04-06-2023 09:00-0400 Diastolic blood pressure 54 mm[Hg] Ron Doreen Other [facility] 04-06-2023 09:00-0400 Respiratory rate 18 /min Ron Doreen Other [facility] 04-06-2023 09:00-0400 SaO2% (BldA) [Mass fraction] 98 % Ron Doreen Other [facility] 04-06-2023 09:00-0400 Systolic blood pressure 144 mm[Hg] Ron Doreen Other [facility] 04-02-2023 14:40-0400 Body height 168.91 cm Ron Doreen Other [facility] 04-02-2023 14:40-0400 Body mass index (BMI) [Ratio] 30.55 kg/m2 Ron Doreen Other [facility] 04-02-2023 14:40-0400 Body temperature 97 [degF] Ron Doreen Other [facility] 04-02-2023 14:40-0400 Body weight 87.18 kg Ron Doreen Other [facility] 04-02-2023 14:40-0400 Diastolic blood pressure 76 mm[Hg] Ron Doreen Other [facility] 04-02-2023 14:40-0400 Respiratory rate 18 /min Ron Doreen Other [facility] 04-02-2023 14:40-0400 SaO2% (BldA) [Mass fraction] 98 % Ron Doreen Other [facility] 04-02-2023 14:40-0400 Systolic blood pressure 183 mm[Hg] Ron Doreen Other [facility] 03-07-2023 09:20-0400 Body height 168.91 cm Ron Doreen Other [facility] 03-07-2023 09:20-0400 Body mass index (BMI) [Ratio] 30.52 kg/m2 Ron Doreen Other [facility] 03-07-2023 09:20-0400 Body temperature 97.1 [degF] Ron Doreen Other [facility] 03-07-2023 09:20-0400 Body weight 87.09 kg Ron Doreen Other [facility] 03-07-2023 09:20-0400 Diastolic blood pressure 72 mm[Hg] Ron Doreen Other [facility] 03-07-2023 09:20-0400 Respiratory rate 18 /min Ron Doreen Other [facility] 03-07-2023 09:20-0400 SaO2% (BldA) [Mass fraction] 97 % Ron Doreen Other [facility] 03-07-2023 09:20-0400 Systolic blood pressure 130 mm[Hg] Ron Doreen Other [facility] 12-20-2022 13:20-0400 Body height 168.91 cm Ron Doreen Other [facility] 12-20-2022 13:20-0400 Body mass index (BMI) [Ratio] 30.68 kg/m2 Ron Doreen Other [facility] 12-20-2022 13:20-0400 Body temperature 97.1 [degF] Ron Doreen Other [facility] 12-20-2022 13:20-0400 Body weight 87.54 kg Ron Doreen Other [facility] 12-20-2022 13:20-0400 Diastolic blood pressure 72 mm[Hg] Ron Doreen Other [facility] 12-20-2022 13:20-0400 Respiratory rate 18 /min Ron Doreen Other [facility] 12-20-2022 13:20-0400 SaO2% (BldA) [Mass fraction] 99 % Ron Doreen Other [facility] 12-20-2022 13:20-0400 Systolic blood pressure 139 mm[Hg] Ron Doreen Other [facility] 11-05-2022 14:00-0500 Body height 168.91 cm Ron Doreen Other [facility] 11-05-2022 14:00-0500 Body mass index (BMI) [Ratio] 30.59 kg/m2 Ron Doreen Other [facility] 11-05-2022 14:00-0500 Body temperature 96.8 [degF] Ron Doreen Other [facility] 11-05-2022 14:00-0500 Body weight 87.27 kg Ron Doreen Other [facility] 11-05-2022 14:00-0500 Diastolic blood pressure 72 mm[Hg] Ron Doreen Other [facility] 11-05-2022 14:00-0500 Respiratory rate 18 /min Ron Doreen Other [facility] 11-05-2022 14:00-0500 SaO2% (BldA) [Mass fraction] 98 % Ron Doreen Other [facility] 11-05-2022 14:00-0500 Systolic blood pressure 157 mm[Hg] Ron Doreen Other [facility] 09-27-2022 16:00-0500 Body height 168.91 cm Jana Monson Other [facility] 09-27-2022 16:00-0500 Body mass index (BMI) [Ratio] 30.55 kg/m2 Jana Monson Other [facility] 09-27-2022 16:00-0500 Body temperature 96.8 [degF] Jana Monson Other [facility] 09-27-2022 16:00-0500 Body weight 87.18 kg Jana Monson Other [facility] 09-27-2022 16:00-0500 Diastolic blood pressure 73 mm[Hg] Jana Monson Other [facility] 09-27-2022 16:00-0500 Respiratory rate 18 /min Jana Monson Other [facility] 09-27-2022 16:00-0500 SaO2% (BldA) [Mass fraction] 98 % Jana Monson Other [facility] 09-27-2022 16:00-0500 Systolic blood pressure 159 mm[Hg] Jana Monson Other [facility] 08-22-2022 12:00-0500 Body height 168.91 cm Ron Doreen Other [facility] 08-22-2022 12:00-0500 Body mass index (BMI) [Ratio] 30.65 kg/m2 Ron Doreen Other [facility] 08-22-2022 12:00-0500 Body temperature 96.9 [degF] Ron Doreen Other [facility] 08-22-2022 12:00-0500 Body weight 87.45 kg Ron Doreen Other [facility] 08-22-2022 12:00-0500 Diastolic blood pressure 75 mm[Hg] Ron Doreen Other [facility] 08-22-2022 12:00-0500 Respiratory rate 18 /min Ron Doreen Other [facility] 08-22-2022 12:00-0500 SaO2% (BldA) [Mass fraction] 96 % Ron Doreen Other [facility] 08-22-2022 12:00-0500 Systolic blood pressure 121 mm[Hg] Ron Doreen Other [facility] 05-08-2022 10:20-0400 Body height 168.91 cm Ron Doreen Other [facility] 05-08-2022 10:20-0400 Body mass index (BMI) [Ratio] 31.54 kg/m2 Ron Doreen Other [facility] 05-08-2022 10:20-0400 Body temperature 97.6 [degF] Ron Doreen Other [facility] 05-08-2022 10:20-0400 Body weight 89.99 kg Ron Doreen Other [facility] 05-08-2022 10:20-0400 Diastolic blood pressure 68 mm[Hg] Ron Doreen Other [facility] 05-08-2022 10:20-0400 Respiratory rate 18 /min Ron Doreen Other [facility] 05-08-2022 10:20-0400 SaO2% (BldA) [Mass fraction] 98 % Ron Doreen Other [facility] 05-08-2022 10:20-0400 Systolic blood pressure 131 mm[Hg] Ron Doreen Other [facility] 01-18-2022 10:20-0400 Body height 168.91 cm Ron Doreen Other [facility] 01-18-2022 10:20-0400 Body mass index (BMI) [Ratio] 31 kg/m2 Ron Doreen Other [facility] 01-18-2022 10:20-0400 Body temperature 96.4 [degF] Ron Doreen Other [facility] 01-18-2022 10:20-0400 Body weight 88.45 kg Ron Doreen Other [facility] 01-18-2022 10:20-0400 Diastolic blood pressure 74 mm[Hg] Ron Doreen Other [facility] 01-18-2022 10:20-0400 Respiratory rate 18 /min Ron Doreen Other [facility] 01-18-2022 10:20-0400 SaO2% (BldA) [Mass fraction] 97 % Ron Doreen Other [facility] 01-18-2022 10:20-0400 Systolic blood pressure 170 mm[Hg] Ron Doreen Other [facility] Other Encounters Encounter Date Encounter Type Care Provider Facility Start: 12-21-2023 Refill Luis dominique PA-C Work Phone: [facility] Comment on above: Med Refill Start: 11-28-2023 End: 11-28-2023 ambulatory GREG NAVARROSanthosh Not Available Start: 11-18-2023 End: 11-18-2023 ambulatory Ron Doreen Other [facility] Start: 11-18-2023 Office outpatient visit 15 minutes Ron Doreen [facility] Start: 11-05-2023 End: 11-05-2023 ambulatory GA H CRESPO Not Available Start: 11-04-2023 (INJECTION) INJECTION Ron Doreen [facility] Start: 11-04-2023 End: 11-04-2023 ambulatory Ron Doreen Other [facility] Start: 10-22-2023 End: 10-22-2023 ambulatory GA H CRESPO Not Available Start: 10-15-2023 End: 10-15-2023 ambulatory Ron Doreen Other [facility] Start: 10-15-2023 Office outpatient visit 15 minutes Ron Doreen [facility] Start: 10-08-2023 End: 10-08-2023 ambulatory Aziz Bakhous Other [facility] Start: 10-08-2023 Telephone encounter Aziz Bakhous [facility] Start: 09-15-2023 End: 09-15-2023 ambulatory Ron Doreen Other [facility] Start: 09-15-2023 Telephone encounter Ron Doreen [facility] Start: 09-09-2023 End: 09-09-2023 ambulatory Ron Doreen Other [facility] Start: 09-09-2023 Telephone encounter Ron Doreen [facility] Start: 08-27-2023 (INJECTION) INJECTION Aziz Bakhous [facility] Start: 08-27-2023 End: 08-27-2023 ambulatory Aziz Bakhous Other [facility] Start: 08-15-2023 (INJECTION) INJECTION Ron Doreen [facility] Start: 08-15-2023 End: 08-15-2023 ambulatory Ron Doreen Other [facility] Start: 08-13-2023 (INJECTION) INJECTION Ron Doreen [facility] Start: 08-13-2023 End: 08-13-2023 ambulatory Ron Doreen Other [facility] Start: 08-01-2023 End: 08-01-2023 ambulatory Ron Doreen Other [facility] Start: 08-01-2023 Office outpatient visit 15 minutes Ron Doreen [facility] Start: 06-24-2023 End: 06-24-2023 ambulatory Ron Doreen Other [facility] Start: 06-24-2023 Office outpatient visit 10 minutes Ron Doreen [facility] Start: 06-06-2023 End: 06-06-2023 ambulatory Ron Doreen Other [facility] Start: 06-06-2023 Office outpatient visit 15 minutes Ron Doreen [facility] Start: 04-30-2023 End: 04-30-2023 ambulatory Ron Doreen Other [facility] Start: 04-30-2023 Office outpatient visit 15 minutes Ron Doreen [facility] Start: 04-06-2023 (INJECTION) INJECTION Ron Doreen [facility] Start: 04-06-2023 End: 04-06-2023 ambulatory Ron Doreen Other [facility] Start: 04-06-2023 Telephone encounter Ron Doreen [facility] Start: 04-02-2023 End: 04-02-2023 ambulatory Ron Doreen Other [facility] Start: 04-02-2023 Office outpatient visit 15 minutes Ron Doreen [facility] Start: 04-02-2023 Telephone encounter Ron Doreen [facility] Start: 03-07-2023 End: 03-07-2023 ambulatory Ron Doreen Other [facility] Start: 03-07-2023 Office outpatient visit 15 minutes Ron Doreen [facility] Start: 01-22-2023 End: 01-23-2023 ambulatory RON DOREEN Facility:[facility] Start: 12-20-2022 End: 12-20-2022 ambulatory Ron Doreen Other [facility] Start: 12-20-2022 Office outpatient visit 15 minutes Ron Doreen [facility] Start: 12-17-2022 End: 12-18-[address] DHRUV RUBI . Facility:[facility] Start: 12-10-2022 End: 12-11-2022 ambulatory RON DOREEN Facility:[facility] Start: 11-20-2022 End: 11-21-[address] BENI APARICIO Facility:[facility] Start: 11-05-2022 End: 11-05-2022 ambulatory Ron Doreen Other [facility] Start: 11-05-2022 Office outpatient visit 15 minutes Ron Doreen [facility] Start: 10-29-2022 End: 10-30-[address] JANA MONSON Facility:[facility] Start: 10-24-2022 End: 10-24-[address] LILLIAN ACOSTA . Facility:[facility] Start: 10-24-2022 End: 10-25-[address] DHRUV RUBI . Facility:[facility] Start: 09-27-2022 End: 09-27-2022 ambulatory Jana Monson Other [facility] Start: 09-27-2022 Office outpatient visit 15 minutes Jana Monson [facility] Start: 09-18-2022 End: 09-19-2022 ambulatory RON DOREEN Facility:[facility] Start: 09-11-2022 End: 09-11-[address] DHRUV RUBI . Facility:[facility] Start: 08-22-2022 End: 08-22-2022 ambulatory Ron Doreen Other [facility] Start: 08-22-2022 Office outpatient visit 15 minutes Ron Doreen [facility] Start: 08-13-2022 End: 08-14-2022 ambulatory RON DOREEN Facility:[facility] Start: 06-25-2022 End: 06-26-[address] DHRUV RUBI . Facility:[facility] Start: 06-18-2022 End: 06-18-[address] DHRUV RUBI . Facility:[facility] Start: 06-01-2022 End: 06-02-[address] YANET HUERTA Facility:[facility] Start: 05-28-2022 End: 05-28-2022 ambulatory Ron Doreen Other [facility] Start: 05-28-2022 Telephone encounter Ron Doreen [facility] Start: 05-21-2022 End: 05-22-[address] DHRUV RUBI . Facility:[facility] Start: 05-16-2022 End: 05-16-2022 ambulatory Ron Doreen Other [facility] Start: 05-16-2022 Telephone encounter Ron Doreen [facility] Start: 05-10-2022 End: 05-10-2022 ambulatory Ron Doreen Other [facility] Start: 05-10-2022 Telephone encounter Ron Doreen [facility] Start: 05-08-2022 End: 05-08-2022 ambulatory Ron Doreen Other [facility] Start: 05-08-2022 Office outpatient visit 25 minutes Ron Doreen [facility] Start: 05-02-2022 End: 05-03-2022 ambulatory RON DOREEN Facility:[facility] Start: 04-24-2022 End: 04-24-2022 ambulatory Aziz Bakhous Other [facility] Start: 04-24-2022 Telephone encounter Aziz Bakhous [facility] Start: 01-18-2022 End: 01-18-2022 ambulatory Ron Doreen Other [facility] Start: 01-18-2022 Office outpatient visit 25 minutes Ron Doreen [facility] Start: 05-21-2017 End: 05-22-2017 Ambulatory DEFAULT PHYSICIAN [facility] Procedures Date Procedure Procedure Detail Performing Clinician Start: 01-11-2021 History of coronary artery bypass grafting H/O four vessel coronary artery bypass graft Luis Quiles PA-C Work Phone: Start: 12-28-2020 Adult depression screening assessment Luis Quiles PA-C Work Phone: History of coronary artery bypass grafting H/O four vessel coronary artery bypass graft Luis Quiles PA-C Work Phone: Plan of Treatment Date Care Activity Detail Author Start: 03-19-2024 Adult BMI Screening Adult BMI Screening [facility] Start: 03-19-2024 Tobacco Screening Tobacco Screening [facility] Start: 06-07-2023 COVID-19 Vaccine ( season) COVID-19 Vaccine ( season) [facility] Start: 06-07-2023 Influenza vaccination Influenza Vaccine [facility] Start: 12-28-2021 Depression Screening Depression Screening [facility] Start: 2009 Fall Risk Screening Fall Risk Screening [facility] Start: 1994 Administration of varicella zoster vaccine Zoster (Shingles) Vaccine (1 of 2) [facility] Start: 12-15-1963 DTaP,Tdap and Td Vaccines (1 - Tdap) DTaP,Tdap and Td Vaccines (1 - Tdap) [facility] Start: 1962 Adult BMI Follow Up Plan Adult BMI Follow Up Plan [facility] Start: 1944 Medicare Annual Wellness Visit Medicare Annual Wellness Visit [facility] Immunizations Immunization Date Immunization Notes Care Provider Fa cili 07-18-2020 Seasonal trivalent influenza vaccine, adjuvanted, preservative free Luis Quiles PA-C Work Phone: [facility] 07-18-2020 influenza virus vacc ine, unspecified formulation Luis Quiles PA-C Work Phone: [facility] 07-22-2019 Seasonal trivalent influenza vaccine, adjuvanted, preservative free Luis Quiles PA-C Work Phone: [facility] 07-14-2018 Seasonal trivalent influenza vaccine, adjuvanted, preservative free Luis Quiles PA-C Work Phone: [facility] 07-15-2017 pneumococcal conjuga te vaccine, 13 valent Luis Kb PA-C Work Phone: [facility] 07-08-2017 influenza, high dose seasonal, preservative-free Luis Kb PA-C Work Phone: [facility] 07-25-2016 influenza, high dose seasonal, preservative-free Luis Kb PA-C Work Phone: [facility] 07-11-2015 influenza, high dose seasonal, preservative-free Luis Kb PA-C Work Phone: [facility] 07-16-2014 influenza, seasonal, injectable Luis Kb PA-C Work Phone: [facility] 07-10-2013 influenza, seasonal, injectable Luis Kb PA-C Work Phone: [facility] 08-08-2012 influenza virus vacc ine, unspecified formulation Luis Kb PA-C Work Phone: [facility] 08-08-2012 pneumococcal polysaccharide vaccine, 23 valent Luis Kb PA-C Work Phone: [facility] 07-11-2011 influenza virus vacc ine, unspecified formulation Luis Kb PA-C Work Phone: [facility] 08-15-2010 influenza virus vacc ine, unspecified formulation Luis Kb PA-C Work Phone: [facility] 07-26-2009 influenza virus vacc ine, unspecified formulation Luis Kb PA-C Work Phone: [facility] 08-04-2008 influenza virus vacc ine, unspecified formulation Luis Kb PA-C Work Phone: [facility] 08-13-2007 influenza virus vacc ine, unspecified formulation Luis Kb PA-C Work Phone: [facility] 08-11-2004 influenza virus vacc ine, unspecified formulation Luis Kb PA-C Work Phone: [facility] 08-09-2003 influenza virus vacc ine, unspecified formulation Luis Kb PA-C Work Phone: [facility] 08-09-2003 pneumococcal polysaccharide vaccine, 23 valent Luis Quiles PA-C Work Phone: [facility] Payers Date Payer Category Payer Medicare [employer] MEDICARE A [employer] MEDICARE PLAN (HMO) [id number] 2021-Present [phone] [address] [place] [address] [id number] 1960 Medicare [id number] 1944 Unknown [id number] 1944 Unknown [id number] [id number] 1944 Unknown [id number] [id number] 1944 Unknown [id number] [id number] 1944 Unknown [id number] [id number]3 1944 Unknown [id number] [id number] 1944 Unknown [id number] 2.16.840.1.887701.3.579.2.593 1944 Unknown [id number] 2.16.840.1.976010.3.579.2.593 1944 Unknown [id number] 2.16.840.1.868785.3.579.2.593 1944 Unknown [id number] 2.16.840.1.558803.3.579.2.593 1944 Unknown [id number] 2.16.840.1.035246.3.579.2.593 1944 Unknown [id number] 2.16.840.1.531467.3.579.2.593 1944 Unknown [id number] 2.16.840.1.957065.3.579.2.593 1944 Unknown [id number] 2.16.840.1.302002.3.579.2.593 1944 Unknown [id number] 2.16.840.1.624278.3.579.2.593 1944 Unknown [id number] 2.16.840.1.171865.3.579.2.593 1944 Unknown [id number] 2.16.840.1.114680.3.579.2.1259 1944 Unknown [id number] [id number] 1944 Unknown [id number] [id number] Unknown Social History Date Type Detail Facility Unknown if ever smoked [facility] Start: 12-28-2020 End: 03-19-2023 Sex Assigned At [facility] Start: 09-20-2022 Tobacco smoking status KYIS Ex-smoker [facility] End: 10-07-1969 History of tobacco use Current smoker [facility] End: 10-07-1969 History of tobacco use Cigarette Smoker [facility] Start: 09-20-2022 Tobacco use and exposure Smokeless tobacco non-user [facility] Start: 03-19-2023 Alcohol intake Ex-drinker (finding) [facility] Start: 12-28-2020 End: 03-19-2023 History of Social function [facility] Do you belong to any clubs or organizations such as hoahaoism groups, unions, fraternal or athletic groups, or school groups? No [facility] Are you now , , , , never or living with a partner? [facility] How hard is it for y ou to pay for the very basics like food, housing, medical care, and heating Not hard at all [facility] Do you feel stress - tense, restless, nervous, or anxious, or unable to sleep at night because your mind is troubled all the time - these days [OSQ] Not at all [facility] Start: 1945 Sex Assigned At Not on file [facility] Goals Date Patient Goal Desired Activity /State Personal health goal Comment on above: Formatting of this n ote might be different from the original. Evaluation of progress towards goal: return home with homecare and support from [facility], children and grandchildren Clinical Notes 01-18-2022 to 11-18-2023 Note Date [...] potassium improved with dietary restriction and Lasix. [facility] 01-29-2024 Evaluation note* Encounter Date Diagnosis Assessment Notes Treatment Notes Treatment Clinical Notes Oct, Anemia of renal disease (ICD-10 - D63.1) Oct, CKD (chronic kidney disease) stage 4, GFR 15-29 ml/min (ICD-10 - N18.4) [facility] 01-09-2024 Evaluation note* Encounter Date Diagnosis [...] potassium improved with dietary restriction and Lasix. [facility] 12-04-2023 Evaluation note* Encounter Date Diagnosis [...] 4, GFR 15-29 ml/min (ICD-10 - N18.4) [facility] 11-21-2023 Evaluation note* Encounter Date Diagnosis Assessment Notes Treatment Notes Treatment Clinical Notes Aug, Anemia of renal disease (ICD-10 - D63.1) Aug, CKD (chronic kidney disease) stage 4, GFR 15-29 ml/min (ICD-10 - N18.4) [facility] 11-09-2023 Evaluation note* Encounter Date Diagnosis [...] of kidney mass hydronephrosis or kidney stones. [facility] 10-26-2023 Evaluation note* Encounter Date Diagnosis [...] potassium improved with dietary restriction and Lasix. [facility] 09-18-2023 Evaluation note* Encounter Date Diagnosis [...] potassium improved with dietary restriction and Lasix. [facility] 08-31-2023 Evaluation note* Encounter Date Diagnosis [...] potassium improved with dietary restriction and Lasix. [facility] 07-25-2023 Evaluation note* Encounter Date Diagnosis [...] to normal with dietary restriction and Lasix. [facility] 07-01-2023 Evaluation note* Encounter Date Diagnosis Assessment Notes Treatment Notes Treatment Clinical Notes Apr, CKD (chronic kidney disease) stage 4, GFR 15-29 ml/min (ICD-10 - N18.4) Apr, Anemia of renal disease (ICD-10 - D63.1) [facility] 06-27-2023 Evaluation note* Encounter Date Diagnosis [...] to normal with dietary restriction and Lasix. [facility] 06-01-2023 Evaluation note* Encounter Date Diagnosis [...] potassium diet and provide information about it. [facility] 03-16-2023 Evaluation note* Encounter Date Diagnosis [...] to Continue Vit D 5000 units daily [facility] 01-30-2023 Evaluation note* Encounter Date Diagnosis [...] to Continue Vit D 5000 units daily [facility] 12-22-2022 Evaluation note* Encounter Date Diagnosis [...] to Continue Vit D 5000 units daily [facility] Other 11-16-2022 Evaluation note* Encounter Date Diagnosis [...] to Continue Vit D 5000 units daily [facility] Other 08-04-2022 Evaluation note* Encounter Date Diagnosis Assessment Notes Treatment Notes Treatment Clinical Notes May, Hypertensive chronic kidney disease with stage 1 through stage 4 chronic kidney disease, or unspecified chronic kidney disease (ICD-10 - I12.9) [facility] Other 08-02-2022 Evaluation note* Encounter Date Diagnosis [...] to Continue Vit D 5000 units daily [facility] Other 07-19-2022 Evaluation note* Encounter Date Diagnosis Assessment Notes Treatment Notes Treatment Clinical Notes Apr, Hypertensive chronic kidney disease with stage 1 through stage 4 chronic kidney disease, or unspecified chronic kidney disease (ICD-10 - I12.9) [facility] Other 04-14-2022 Evaluation note* Encounter Date Diagnosis [...] to take Vit D 1000 units daily [place] [employer] Other Evaluation noteNo InformationNort [employer] Other Evaluation note* Diagnosis Atherosclerosis of [place] coronary artery of [place] heart without angina 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 Hypertensive urgency Shortness of breath Paroxysmal atrial fibrillation (CMS-HCC) Atrial fibrillation Localized edema Edema documented in this encounter [facility] - [facility]* Type Description Date [...] History SEE ABOVE Hospitalization History COVID 09/2020 [facility] Other [facility]arda general Narrative - Reported* Type Description Date [...] History SEE ABOVE Hospitalization History COVID 09/2020 [facility] Other history general Narrative - Reported* Type [...] History SEE ABOVE Hospitalization History COVID 09/2020 [facility] Other Hisucej general Narrative - Reported* Type Description Date [...] NOSE 10/2019 Surgical History QUAD BYPASS AT [facility] 01/01/2021 Hospitalization History ELEVATED BLOOD PRESSURE Hospitalization History SEE ABOVE Hospitalization History COVID 09/2020 [facility] Other InstructionsNot on filedocumented in this encounter [facility] Summary Purpose Family History No Family History Records FoundNo Family History Records FoundNo Family History Records Found Advance Directives Latest Code Status on File Code Status Date Activated Date Inactivated Comments Full Code 12/28/2020 2:33 PM 01/03/2021 7:38 PM Additional Source Comments INFORMATION SOURCE (unrecogn ized section and content) DATE CREATED AUTHOR 04/02/2018 [facility] DATE CREATED AUTHOR AUTHOR'S ORGANIZ ATION 01/27/2023 [facility] DATE CREATED AUTHOR AUTHOR'S ORGANIZ ATION 12/06/2023 [facility] EPIC REASON FOR VISIT (unrecogniz ed section and content) Reason Comments Med Refill Care Teams (unrecognized sec tion and content) [employer] Relationship Specialty Start Date End Date Dhruv Rubi MD [address] [place] [address] PCP - General Family Medicine 10/20/20 FOR RECORDS PERTAINING TO PATIENTS WHO ARE [...] BE BASED ON THE PRIMARY CLINICAL RECORDS. [facility]. provides no warranty or guarantee of the accuracy or completeness of information in this document.
--- NOTE | 2023-12-30 20:20 | CT_ITS ---
[address] [address] Patient Name: KYLAH BERGER MRN: [id number] date: 1945 Sex: F Assigned Patient Location: ER Current Patient Location: Accession/Order Number: [id number] Exam Date: 12/30/2023 21:13 Report Date: 12/30/2023 21:56 At the request of: ENEDINA WALKER Procedure: CT cervical spine wo con CT cervical spine wo con INDICATION: 78 years old; Female . CLINICAL HISTORY: Neck pain TECHNIQUE: CT imaging of the cervical spine was performed. IV contrast: None. Dose reduction techniques were achieved by using automated exposure control and/or adjustment of mA and/or kV according to patient size and/or use of iterative reconstruction technique. COMPARISON: None available. FINDINGS: POSTOPERATIVE CHANGES: None. ALIGNMENT: Nonspecific straightening of the normal cervical curve. COMPRESSION FRACTURES: No fracture or vertebral body collapse. No bone displacement. No asymmetric widening of the facets. There is incomplete ossification of the posterior arch of C1 which is a developmental variation. PREVERTEBRAL SOFT TISSUES: Normal. CRANIOCERVICAL JUNCTION: There is a normal relationship of the occipital condyles, lateral masses of C1, and articular surfaces of C2. The base of the dens and body of C2 are intact. There is narrowing of the predental space with spurring arising from the anterior arch of C1 and the dens. POSTERIOR FOSSA: The cerebellar tonsils are above the foramen magnum. There is calcification in the V4 segments of vertebral arteries. Disc levels: C2-C3: No disc herniation. No spinal canal or foraminal narrowing. C3-C4: Bulging and endplate osteophyte formation. Mild central canal stenosis. Neural foramina patent. C4-C5: Disc bulging and endplate osteophyte formation. No focal disc herniation. Central canal patent. Neural foramina patent. C5-C6: Central extrusion type disc herniation. Central canal patent. Neural foramina patent. C6-C7: Disc space narrowing. Disc bulging and endplate osteophyte formation. Uncovertebral joint degeneration, worse on the right than the left. Mild right-sided foraminal stenosis. C7-T1: No disc herniation. No spinal canal or foraminal narrowing. UPPER THORACIC SPINE: No disc herniation. No spinal canal or foraminal narrowing. OTHER: No thyroid nodule or adenopathy. Vascular calcifications. CT/CT cervical spine wo con IMPRESSION: 1. No fracture or vertebral body collapse. 2. Cervical spondylosis. Please see the detailed discussion of the individual levels in the body of this report. 3. Vascular calcification. Electronically authenticated by: ROBERT FU Date: 12/30/2023 21:56
--- NOTE | 2023-12-30 20:21 | ED_ITS ---
Documented by User: JOSÉ MIGUEL Gibbs 12/30/23 22:01 HPI - Chest Pain General Chief Complaint: Chest Pain Stated Complaint: Chest and Neck Pain Time Seen by Provider: 12/30/23 20:13 Source: patient and family Mode of arrival: walk-in Limitations: no limitations History of Present Illness HPI narrative: Patient is a 78-year-old female with a history of coronary artery disease, CABG, hypertension, chronic kidney disease who presents to the emergency department for pain in the left side of the neck going into the left shoulder and chest. She states pain has been present for several days. She saw her PCP today and was told that her symptoms were likely arthritis, x-rays were ordered if her pain did not improve. Patient's granddaughter brought her to the emergency department tonight because she did not feel the patient was forthcoming with Dr. Rubi today about the chest discomfort although the patient states she has no pain or discomfort at this time. She has not had any falls or injuries, no radicular pain to the arms. She reports mild tenderness to palpation behind the left ear although she has no significant pain with movement of the head or the left arm. She has not had any recent illness, fevers, chills, cough or congestion. She denies shortness of breath. She denies abdominal pain, vomiting, diarrhea. She is noted to be significantly hypertensive at initial interview. Related Data Home Medications ?Medication ?Instructions ?Recorded ?Confirmed allopurinol 300 mg tablet 300 mg PO DAILY 03/17/23 03/17/23 atorvastatin 80 mg tablet 80 mg PO DAILY 03/17/23 03/17/23 carvedilol 25 mg tablet 25 mg PO Q12H 03/17/23 03/17/23 furosemide 20 mg tablet 20 mg PO DAILY 03/17/23 03/17/23 insulin 50 units subcut BID 03/17/23 03/17/23 insulin aspart U-100 100 unit/mL 12 unit subcut DAILY 03/17/23 03/17/23 (3 mL) subcutaneous pen (Novolog FlexPen U-100 Insulin aspart) levothyroxine 125 mcg tablet 125 mcg PO DAILY 03/17/23 03/17/23 liothyronine 5 mcg tablet 5 mcg PO BID 03/17/23 03/17/23 magnesium oxide 400 mg (241.3 mg 400 mg PO TID 03/17/23 03/17/23 magnesium) tablet pantoprazole 40 mg tablet,delayed 40 mg PO BID 03/17/23 03/17/23 release phenazopyridine 200 mg tablet 200 mg PO BID 03/17/23 03/17/23 Previous Rx's ?Medication ?Instructions ?Recorded hydrochlorothiazide 25 mg tablet 25 mg PO DAILY #10 tabs 03/17/23 Allergies Allergy/AdvReac Type Severity Reaction Status Date / Time amoxicillin [From Augmentin] Allergy Rash Verified 12/30/23 20:03 clavulanic acid Allergy Rash Verified 12/30/23 20:03 [From Augmentin] sulfamethoxazole Allergy Rash Verified 12/30/23 20:03 [From Bactrim] trimethoprim [From Bactrim] Allergy Rash Verified 12/30/23 20:03 NORVASC Allergy Unknown Uncoded 12/30/23 20:03 CT dye Allergy Unconscious Uncoded 12/30/23 20:03 Review of Systems ROS Constitutional Denies: fever or chills Eyes Denies: change in vision or blurry vision Ears, nose, mouth, and throat Reports: neck pain; Denies: throat pain Cardiovascular Reports: chest pain Respiratory Denies: shortness of breath or cough Gastrointestinal Denies: nausea or vomiting Musculoskeletal Reports: neck pain; Denies: back pain, extremity pain, extremity swelling, joint pain or limited range of motion Integumentary/Breast Denies: rash Neurological Denies: headache Endocrine Denies: excessive urination Hematologic/Lymphatic Denies: easy bruising or easy bleeding PFSH PFSH Social History Smoking status: Former smoker Exam Narrative Exam Narrative: Gen.: Awake, alert, in no distress Head: Normocephalic, atraumatic ENT: Moist mucous membranes; No tenderness of the cervical spine, no pain with range of motion or nuchal rigidity. No pulsatile masses palpated in the anterior neck. Mild tenderness to palpation of the cervical muscles of the left posterior cervical spine and behind the left ear Respiratory: No respiratory distress, lungs clear bilaterally Cardio: Regular rate and rhythm Gastrointestinal: Abdomen is soft, nondistended and nontender to palpation Extremities: Moves extremities equally, no Pedal edema Psych: Normal mood and affect Neuro: No focal neuro deficit Skin: Warm, dry, intact Constitutional Vital Signs, click to edit/add: Last Vital Signs Temp 98.7 F 12/30/23 20:03 Pulse 69 12/30/23 23:20 Resp 16 12/30/23 23:20 BP 138/76 12/30/23 23:16 Pulse Ox 98 12/30/23 21:00 O2 Del Method Room Air 12/30/23 20:03 Course Vital Signs Vital signs: Vital Signs Temperature 98.7 F 12/30/23 20:03 Pulse Rate 70 12/30/23 20:03 Respiratory Rate 14 12/30/23 20:03 Blood Pressure 255/90 H 12/30/23 20:03 Pulse Oximetry 99 12/30/23 20:03 Oxygen Delivery Method Room Air 12/30/23 20:03 Temperature 98.7 F 12/30/23 20:03 Pulse Rate 69 12/30/23 23:20 Respiratory Rate 16 12/30/23 23:20 Blood Pressure 138/76 12/30/23 23:16 Pulse Oximetry 98 12/30/23 21:00 Oxygen Delivery Method Room Air 12/30/23 20:03 MDM - Chest Pain MDM Narrative Medical decision making narrative: Patient was medicated with IV labetalol and Vasotec with no significant improvement of her blood pressure. She was remedicated with IV hydralazine. Labs show chronic kidney disease with normal troponin and BNP. Chest x-ray is stable. CT of the cervical spine shows the patient has multiple levels of bulging disks, osteophytes. No acute abnormalities noted. Repeat troponin, blood pressure control and admission are pending. Case is turned over to attending physician at this time. Medical Records Data Attestation: I reviewed the patient's medical records. Lab Data Attestation: I reviewed the patient's lab results. Labs: Lab Results 12/30/23 12/30/23 Range/Units 20:30 22:58 WBC 6.3 (4.0-11.0) 10^3/uL RBC 3.36 L (4.20-5.40) 10^6/uL Hgb 10.4 L (12.0-16.0) g/dL Hct 31.6 L (36.0-48.0) % MCV 94.0 (81.0-99.0) fL MCH 31.0 (26.7-34.0) pg MCHC 32.9 (29.9-35.2) g/dL RDW 15.5 H (11.0-15.0) % Plt Count 187 (150-450) 10^3/uL MPV 9.4 L (9.5-13.5) fL Neut % (Auto) 45.6 (43.0-75.0) % Lymph % (Auto) 40.0 (20.5-60.0) % [place] % (Auto) 10.9 (1.7-12.0) % Eos % (Auto) 2.7 (0.9-7.0) % Baso % (Auto) 0.6 (0.2-2.0) % Neut # (Auto) 2.9 (1.4-6.5) 10^3/uL Lymph # (Auto) 2.5 (1.2-3.8) 10^3/uL [place] # (Auto) 0.7 (0.3-0.8) 10^3/uL Eos # (Auto) 0.2 (0.0-0.7) 10^3/uL Baso # (Auto) 0.0 (0.0-0.1) 10^3/uL Abs Immat Gran (auto) 0.01 (0.00-0.03) 10^3/uL Imm/Tot Granulo (auto) 0.2 (0.0-0.5) % PT 10.7 (9.0-11.6) sec INR 1.01 APTT 24.2 (22.3-36.2) sec Sodium 138 (136-145) mmol/L Potassium 4.1 (3.5-5.1) mmol/L Chloride 105 (98-107) mmol/L Carbon Dioxide 22.3 (21.0-32.0) mmol/L Anion Gap 14.8 BUN 47.0 H (7.0-18.0) mg/dL Creatinine 2.36 H (0.55-1.02) mg/dL Est GFR ( Amer) 24 L (>=60) Est GFR (Non-Af Amer) 20 L (>=60) BUN/Creatinine Ratio 19.9 Glucose 117 H (74-106) mg/dL Calcium 8.9 (8.5-10.1) mg/dL Total Bilirubin 0.4 (0.2-1.0) mg/dL AST 22 (15-37) U/L ALT 41 (14-59) U/L Alkaline Phosphatase 88 (46-116) U/L Troponin I High Sens 11.6 14.0 (4.0-51.3) pg/mL NT-Pro-B Natriuret Pep 576.0 (<=1800.0) pg/mL Total Protein 7.3 (6.4-8.2) g/dL Albumin 3.6 (3.4-5.0) g/dL Globulin 3.7 g/dL Albumin/Globulin Ratio 1.0 Imaging Data Chest x-ray: Attestation: I have reviewed the pertinent imaging results. Radiologist's impression: ITS Impressions Chest X-Ray 12/30/23 20:14 IMPRESSION: Sternotomy. Chest is otherwise unremarkable. Electronically authenticated by: ISABEL MEZA Date: 12/30/2023 21:[address] 12/30/23 20:20 IMPRESSION: 1. No fracture or vertebral body collapse. 2. Cervical spondylosis. Please see the detailed discussion of the individual levels in the body of this report. 3. Vascular calcification. Electronically authenticated by: ROBERT FU Date: 12/30/2023 21:56 ECG Data Attestation: I personally reviewed and interpreted this ECG as follows: (Normal sinus rhythm at a rate of 70, no acute ST elevation or ectopy noted. Artifact present. EKG reviewed by attending physician) ECG interpretation date: 12/30/23 Heart Score History: Slightly/Non-Suspicious ECG: Normal Age: >65 years Risk Factors: >3 Risk Factors/ HX of CAD:2 Troponin: <Normal Limit Total Heart Score Recommendations & Risks:: 4 Discharge Plan Discharge Chief Complaint: Chest Pain Clinical Impression: Hypertensive urgency, Chest pain Patient Disposition: Admitted as Observation Documented by User: Dmitriy Lynne MD 12/30/23 23:41 HPI - Chest Pain General Chief Complaint: Chest Pain Stated Complaint: Chest and Neck Pain Time Seen by Provider: 12/30/23 20:13 Related Data Home Medications ?Medication ?Instructions ?Recorded ?Confirmed allopurinol 300 mg tablet 300 mg PO DAILY 03/17/23 03/17/23 atorvastatin 80 mg tablet 80 mg PO DAILY 03/17/23 03/17/23 carvedilol 25 mg tablet 25 mg PO Q12H 03/17/23 03/17/23 furosemide 20 mg tablet 20 mg PO DAILY 03/17/23 03/17/23 insulin 50 units subcut BID 03/17/23 03/17/23 insulin aspart U-100 100 unit/mL 12 unit subcut DAILY 03/17/23 03/17/23 (3 mL) subcutaneous pen (Novolog FlexPen U-100 Insulin aspart) levothyroxine 125 mcg tablet 125 mcg PO DAILY 03/17/23 03/17/23 liothyronine 5 mcg tablet 5 mcg PO BID 03/17/23 03/17/23 magnesium oxide 400 mg (241.3 mg 400 mg PO TID 03/17/23 03/17/23 magnesium) tablet pantoprazole 40 mg tablet,delayed 40 mg PO BID 03/17/23 03/17/23 release phenazopyridine 200 mg tablet 200 mg PO BID 03/17/23 03/17/23 Previous Rx's ?Medication ?Instructions ?Recorded hydrochlorothiazide 25 mg tablet 25 mg PO DAILY #10 tabs 03/17/23 Allergies Allergy/AdvReac Type Severity Reaction Status Date / Time amoxicillin [From Augmentin] Allergy Rash Verified 12/30/23 20:03 clavulanic acid Allergy Rash Verified 12/30/23 20:03 [From Augmentin] sulfamethoxazole Allergy Rash Verified 12/30/23 20:03 [From Bactrim] trimethoprim [From Bactrim] Allergy Rash Verified 12/30/23 20:03 NORVASC Allergy Unknown Uncoded 12/30/23 20:03 CT dye Allergy Unconscious Uncoded 12/30/23 20:03 [facility] PFS Social History Smoking status: Former smoker Exam Constitutional Vital Signs, click to edit/add: Last Vital Signs Temp 98.7 F 12/30/23 20:03 Pulse 69 12/30/23 23:20 Resp 16 12/30/23 23:20 BP 138/76 03/25/24 23:16 Pulse Ox 98 12/30/23 21:00 O2 Del Method Room Air 12/30/23 20:03 Course Vital Signs Vital signs: Vital Signs Temperature 98.7 F 12/30/23 20:03 Pulse Rate 70 12/30/23 20:03 Respiratory Rate 14 12/30/23 20:03 Blood Pressure 255/90 H 12/30/23 20:03 Pulse Oximetry 99 12/30/23 20:03 Oxygen Delivery Method Room Air 12/30/23 20:03 Temperature 98.7 F 12/30/23 20:03 Pulse Rate 69 12/30/23 23:20 Respiratory Rate 16 12/30/23 23:20 Blood Pressure 138/76 12/30/23 23:16 Pulse Oximetry 98 12/30/23 21:00 Oxygen Delivery Method Room Air 12/30/23 20:03 MDM - Chest Pain MDM Narrative Medical decision making narrative: Patient was medicated with IV labetalol and Vasotec with no significant improvement of her blood pressure. She was remedicated with IV hydralazine. Labs show chronic kidney disease with normal troponin and BNP. Chest x-ray is stable. CT of the cervical spine shows the patient has multiple levels of bulging disks, osteophytes. No acute abnormalities noted. Repeat troponin, blood pressure control and admission are pending. Case is turned over to attending physician at this time. care transferred at change of shift. BP improved after addition of hydralazine and serial troponin neg. Discussed with the hospitalist and patient admitted Lab Data Labs: Lab Results 12/30/23 12/30/23 Range/Units 20:30 22:58 WBC 6.3 (4.0-11.0) 10^3/uL RBC 3.36 L (4.20-5.40) 10^6/uL Hgb 10.4 L (12.0-16.0) g/dL Hct 31.6 L (36.0-48.0) % MCV 94.0 (81.0-99.0) fL MCH 31.0 (26.7-34.0) pg MCHC 32.9 (29.9-35.2) g/dL RDW 15.5 H (11.0-15.0) % Plt Count 187 (150-450) 10^3/uL MPV 9.4 L (9.5-13.5) fL Neut % (Auto) 45.6 (43.0-75.0) % Lymph % (Auto) 40.0 (20.5-60.0) % [place] % (Auto) 10.9 (1.7-12.0) % Eos % (Auto) 2.7 (0.9-7.0) % Baso % (Auto) 0.6 (0.2-2.0) % Neut # (Auto) 2.9 (1.4-6.5) 10^3/uL Lymph # (Auto) 2.5 (1.2-3.8) 10^3/uL [place] # (Auto) 0.7 (0.3-0.8) 10^3/uL Eos # (Auto) 0.2 (0.0-0.7) 10^3/uL Baso # (Auto) 0.0 (0.0-0.1) 10^3/uL Abs Immat Gran (auto) 0.01 (0.00-0.03) 10^3/uL Imm/Tot Granulo (auto) 0.2 (0.0-0.5) % PT 10.7 (9.0-11.6) sec INR 1.01 APTT 24.2 (22.3-36.2) sec Sodium 138 (136-145) mmol/L Potassium 4.1 (3.5-5.1) mmol/L Chloride 105 (98-107) mmol/L Carbon Dioxide 22.3 (21.0-32.0) mmol/L Anion Gap 14.8 BUN 47.0 H (7.0-18.0) mg/dL Creatinine 2.36 H (0.55-1.02) mg/dL Est GFR ( Amer) 24 L (>=60) Est GFR (Non-Af Amer) 20 L (>=60) BUN/Creatinine Ratio 19.9 Glucose 117 H (74-106) mg/dL Calcium 8.9 (8.5-10.1) mg/dL Total Bilirubin 0.4 (0.2-1.0) mg/dL AST 22 (15-37) U/L ALT 41 (14-59) U/L Alkaline Phosphatase 88 (46-116) U/L Troponin I High Sens 11.6 14.0 (4.0-51.3) pg/mL NT-Pro-B Natriuret Pep 576.0 (<=1800.0) pg/mL Total Protein 7.3 (6.4-8.2) g/dL Albumin 3.6 (3.4-5.0) g/dL Globulin 3.7 g/dL Albumin/Globulin Ratio 1.0 Imaging Data Chest x-ray: Radiologist's impression: ITS Impressions Chest X-Ray 12/30/23 20:14 IMPRESSION: Sternotomy. Chest is otherwise unremarkable. Electronically authenticated by: ISABEL MEZA Date: 12/30/2023 21:[address] 12/30/23 20:20 IMPRESSION: 1. No fracture or vertebral body collapse. 2. Cervical spondylosis. Please see the detailed discussion of the individual levels in the body of this report. 3. Vascular calcification. Electronically authenticated by: ROBERT FU Date: 12/30/2023 21:56 Heart Score Total Heart Score Recommendations & Risks:: 4 Discharge Plan Discharge Chief Complaint: Chest Pain Clinical Impression: Hypertensive urgency, Chest pain Patient Disposition: Admitted as Observation
[2023-12-30 20:39] LABS: Basophils Percent Auto 0.6 % (0.2-2.0); Eosinophils Absolute Auto 0.2 10^3/uL (0.0-0.7); Eosinophils Percent Auto 2.7 % (0.9-7.0); Hematocrit 31.6 % (36.0-48.0); Hemoglobin 10.4 g/dL (12.0-16.0); Immature Granulocytes Abs Auto 0.01 10^3/uL (0.00-0.03); Immature Granulocytes Pct Auto 0.2 % (0.0-0.5); Lymphocytes Absolute Auto 2.5 10^3/uL (1.2-3.8); Mean Corpuscular HGB Conc 32.9 g/dL (29.9-35.2); Mean Platelet Volume 9.4 fL (9.5-13.5); Monocytes Absolute Auto 0.7 10^3/uL (0.3-0.8); Monocytes Percent Auto 10.9 % (1.7-12.0); Neutrophils Absolute Auto 2.9 10^3/uL (1.4-6.5); Neutrophils Percent Auto 45.6 % (43.0-75.0); Platelet Count 187 10^3/uL (150-450); Red Blood Count 3.36 10^6/uL (4.20-5.40); Red Cell Distribution Width 15.5 % (11.0-15.0); White Blood Count 6.3 10^3/uL (4.0-11.0)
[2023-12-30] MEDS: LABETALOL HCL 20 MG/4 ML SYRINGE 10 MG IVP (20:39)
[2023-12-30] MEDS: ENALAPRILAT DIHYDRATE 1.25 MG/ML VIAL IV (20:39)
[2023-12-30 20:50] LABS: INR 1.01; Prothrombin Time 10.7 sec (9.0-11.6)
[2023-12-30 20:53] LABS: Alanine Aminotransferase 41 U/L (14-59); Albumin Level 3.6 g/dL (3.4-5.0); Alkaline Phosphatase 88 U/L (46-116); Anion Gap 14.8; Aspartate Amino Transferase 22 U/L (15-37); BUN Creatinine Ratio 19.9; Bilirubin Total 0.4 mg/dL (0.2-1.0); Calcium 8.9 mg/dL (8.5-10.1); Carbon Dioxide 22.3 mmol/L (21.0-32.0); Chloride 105 mmol/L (98-107); Estimated GFR (African America 24 (>=60); Estimated GFR (Non-African Ame 20 (>=60); Globulin 3.7 g/dL; Glucose 117 mg/dL (74-106); Potassium 4.1 mmol/L (3.5-5.1); Sodium 138 mmol/L (136-145); Total Protein 7.3 g/dL (6.4-8.2)
[2023-12-30 21:01] LABS: Troponin I High Sensitivity 11.6 pg/mL (4.0-51.3)
[2023-12-30 21:05] LABS: Partial Thromboplastin Time 24.2 sec (22.3-36.2)
[2023-12-30] MEDS: HYDRALAZINE HCL 20 MG/ML VIAL 10 MG IVP (21:50)
[2023-12-31] VITALS (63 sets, daily range): BP systolic 126–210; BP diastolic 48–86; PULSE 62–103; RESP 14–24; TEMP 36.4–36.9; O2SAT 94–98; BMI 31.1
--- OUTSIDE RECORDS SUMMARY | 2023-12-31 00:18 | XMS_ITS | CCD ---
Author Organization [facility] Care Team Providers Care [facility] Pruner Name Role Phone PHYSICIAN, DEFAULT Unavailable Unavailable PHYSICIAN, DEFAULT Unavailable Unavailable Doreen, Ron Unavailable Rod[place]ickie Mary Anne Unavailable Jana Monson Unavailable FIORELLAY ., [...] Unavailable Dhruv Rubi MD Primary Care Provider [phone] Allergies Allergy Classification Reported Allergen(s) Allergy Type Date of Onset Reaction(s) Facility (20 sources) amLODIPine Drug Allergy 03-28-20 05 [facility] (20 sources) Amoxicillin / Clavulanate Drug Allergy 11-23-19 [facility] [employer] Other (20 sources) Contrast media Propensity to adverse reactions Unknown [employer] Other (2 sources) Doxazosin; Translations: [doxazosin] Drug Allergy Unknown [employer] Other (20 sources) Sulfamethoxazole / Trimethoprim Drug Allergy 11-23-19 [facility] [employer] Other (20 sources) Doxazosin Drug Allergy 11-23-19 21 Unknown [employer] Other (9 sources) Amoxicillin / Clavulanate; Translations: [Augmentin] Drug Allergy 11-16-19 16 Unknown [facility] (1 source) amLODIPine Drug Allergy 04-25-20 14 [facility] (1 source) Sulfamethoxazole / Trimethoprim Drug Allergy 03-09-20 13 [facility] (1 source) Iodinated Contrast Media Propensity to adverse reactions to drug [facility] Current Medications Medication Drug Class(es) Dates [...] coronary artery bypass graft , 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 , Paroxysmal atrial [...] (LIPITOR) 80 mg tablet Indications: 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 , H/O four [...] Active docusate sodium 50 mg / sennosides, longterm 8.6 mg oral tablet (5 sources) take 1 tablet by mouth every twelve hours Sennosides-Docusate Sodium 8.6-50 MG 1 tablet in the evening as needed Orally every 12 hours Active epoetin johnna-epbx 98372 UNT/ML Injectable Solution [Retacrit] (14 sources) Retacrit 96533 U NIT/ML as directed Injection Active ferrous [...] 12/05/2021 Active take 2 tablets by mo [facility] every twenty-four hours Liothyronine Sodium [...] in the morning. 0 12/19/2020 Active retacrit 71269 unit/ml solution (5 sources) Retacrit 03521 UNIT/ML as directed Injection Active Sennosides-Docusate Sodium [...] Coronary atherosclerosis; Translations: [Atherosclerotic heart disease of elem coronary artery without angina pectoris] Onset: 1 [...] [Volume fraction] 28.8 % Critically low 36.0-48.0 [facility] Comment on above: Performed By: #### H H #### [facility] [address] [place] [address] Dr. Ember Teague Hemoglobin (Bld) [Mass/Vol] 9.6 g/dL Critically low 12.0-16.0 [facility] Comment on above: Performed By: #### H H #### [facility] [address] [place] [address] Dr. Ember Teague MCH (RBC) [Entitic mass] 30.7 pg Normal 26.7-34.0 [facility] Comment on above: Performed By: #### H H #### [facility] [address] [place] [address] Dr. Ember Teague MCHC (RBC) [Mass/Vol] 33.3 g/dL Normal 29.9-35.2 [facility] Comment on above: Performed By: #### H H #### [facility] [address] [address] [address] Ember Teague MCV (RBC) [Entitic vol] 92.0 fL Normal 81.0-99.0 [facility] Comment on above: Performed By: #### H H #### [facility] [address] [place] [address] Dr. Ember Teague PLT 214 103/ul Normal 150-450 [facility] Comment on above: Performed By: #### H H #### [facility] [address] [address] [address] Ember Teague RBC 3.13 106/ul Critically low 4.20-5.40 [facility] Comment on above: Performed By: #### H H #### [facility] [address] [place] [address] Dr. Ember Teague WBC 7.4 103/ul Normal 4.0-11.0 [facility] Comment on above: Performed By: #### H H #### [facility] [address] [place] [address] Dr. Ember Teague MAGNESIUMon 01-22-2023 Magnesium [Mass/Vol] 1.8 mg/dL Normal 1.8-2.4 [facility] Comment on above: Performed By: #### M G, RENAL #### [facility] [address] [place] [address] Dr. Ember Teague RENAL FUNCTION PANELon 01-22 Albumin [Mass/Vol] 3.6 g/dL Normal 3.4-5.0 [facility] Comment on above: Performed By: #### M G, RENAL #### [facility] [address] [place] [address] Dr. Ember Teague Calcium [Mass/Vol] 9.7 mg/dL Normal 8.5-10.1 [facility] Comment on above: Performed By: #### M G, RENAL #### [facility] [address] [place] [address] Dr. Ember Teague Chloride [Moles/Vol] 105 mmol/L Normal 98-107 [facility] Comment on above: Performed By: #### M G, RENAL #### [facility] [address] [place] [address] Dr. Ember Teague CO2 [Moles/Vol] 22.6 mmol/L Normal 21.0-32.0 [facility] Comment on above: Performed By: #### M G, RENAL #### [facility] [address] [place] [address] Dr. Ember Teague Creatinine [Mass/Vol] 2.18 mg/dL Critically high 0.55-1.02 [facility] Comment on above: Performed By: #### M G, RENAL #### [facility] [address] [address] [address] Ember Teague EGFR-AF KOSOVAN 26 mL/min/1.73m2 Critically low >=60 [facility] Comment on above: Performed By: #### M G, RENAL #### [facility] [address] [address] [address] Ember Teague EGFR-NON AF KOSOVAN 22 mL/min/1.73m2 Critically low >=60 [facility] Comment on above: Performed By: #### M G, RENAL #### [facility] [address] [address] [address] Ebmer Teague Glucose [Mass/Vol] 134 mg/dL Critically high 74-106 [facility] Comment on above: Performed By: #### M G, RENAL #### [facility] [address] [address] [address] Ember Teague Phosphate [Mass/Vol] 4.6 mg/dL Normal 2.6-4.7 [facility] Comment on above: Performed By: #### M G, RENAL #### [facility] [address] [address] [address] Ember Teague Potassium [Moles/Vol] 5.1 mmol/L Normal 3.5-5.1 [facility] Comment on above: Performed By: #### M G, RENAL #### [facility] [address] [address] [address] Ember Teague Sodium [Moles/Vol] 138 mmol/L Normal 136-145 [facility] Comment on above: Performed By: #### M G, RENAL #### [facility] [address] [address] [address] Ember Teague Urea nitrogen [Mass/Vol] 61.0 mg/dL Critically high 7.0-18.0 [facility] Comment on above: Performed By: #### M G, RENAL #### [facility] [address] [address] [address] Ember Teague MG MAMM SCREEN 3D MAY CADon 12-17-2022 MG MAMM SCREEN 3D MAY CAD Patient: KYLAH ROBIN Exam Date: 12/17/2022 : 1945 Gender:F Ordering : DR DHRUV RUBI . Admission #: [id number] Family : Order #: [id number] CLICK HERE TO VIEW EXAM RADIOLOGY REPORT [...] lung cancer at age 61. LOCATION: [facility] BREAST COMPOSITION: Scattered areas fibroglandular [...] MD on 12/17/2022 at 11:59 Normal [facility] FERRITINon 12-10-2022 Ferritin [Mass/Vol] 681.0 ng/mL Critically high 8.0-252.0 [facility] Comment on above: Performed By: #### P THINT #### [facility] [address] [place] [address] Dr. Ember Teague HEMOGRAM AND PLATELon 2022 Hematocrit (Bld) [Volume fraction] 27.1 % Critically low 36.0-48.0 [facility] Comment on above: Performed By: #### C VDTBH #### [facility] [address] [address] [address] Ember Teague Hemoglobin (Bld) [Mass/Vol] 9.7 g/dL Critically low 12.0-16.0 [facility] Comment on above: Performed By: #### C VDTBH #### [facility] [address] [address] [address] Ember Teague MCH (RBC) [Entitic mass] 31.4 pg Normal 26.7-34.0 [facility] Comment on above: Performed By: #### C VDTBH #### [facility] [address] [place] [address] Dr. Ember Teague MCHC (RBC) [Mass/Vol] 35.8 g/dL Critically high 29.9-35.2 [facility] Comment on above: Performed By: #### C VDTBH #### [facility] [address] [place] [address] Dr. Ember Teague MCV (RBC) [Entitic vol] 87.7 fL Normal 81.0-99.0 [facility] Comment on above: Performed By: #### C VDTBH #### [facility] [address] [place] [address] Dr. Ember Teague PLT 218 103/ul Normal 150-450 [facility] Comment on above: Performed By: #### C VDTBH #### [facility] [address] [place] [address] Dr. Ember Teague RBC 3.09 106/ul Critically low 4.20-5.40 [facility] Comment on above: Performed By: #### C VDTBH #### [facility] [address] [place] [address] Dr. Ember Teague WBC 6.6 103/ul Normal 4.0-11.0 [facility] Comment on above: Performed By: #### C VDTBH #### [facility] [address] [place] [address] Dr. Ember Teague IRON AND TIBCon 12-10-2022 % SATURATION 30.2 % Normal [facility] Comment on above: Performed By: #### P THINT #### [facility] [address] [place] [address] Dr. Ember Teague Iron [Mass/Vol] 84.0 ug/dL Normal 50.0-170.0 [facility] Comment on above: Performed By: #### P THINT #### [facility] [address] [address] [address] Ember Teague TIBC DIRECT 278.0 ug/dL Normal 250.0-450.0 [facility] Comment on above: Performed By: #### P THINT #### [facility] [address] [address] [address] Ember Teague XR FOOT MAY MIN [...] BENI APARICIO Date: 2022-11-20 14:03 Normal [facility] HEMOGRAM AND PLATELon 2022 Hematocrit (Bld) [Volume fraction] 27.7 % Critically low 36.0-48.0 [facility] Comment on above: Performed By: #### R ENAL #### [facility] [address] [address] [address] Ember Teague Hemoglobin (Bld) [Mass/Vol] 10.0 g/dL Critically low 12.0-16.0 [facility] Comment on above: Performed By: #### R ENAL #### [facility] [address] [address] [address] Ember Teague MCH (RBC) [Entitic mass] 31.6 pg Normal 26.7-34.0 [facility] Comment on above: Performed By: #### R ENAL #### [facility] [address] [address] [address] Ember Teague MCHC (RBC) [Mass/Vol] 36.1 g/dL Critically high 29.9-35.2 [facility] Comment on above: Performed By: #### R ENAL #### [facility] [address] [place] [address] Dr. Ember Teague MCV (RBC) [Entitic vol] 87.7 fL Normal 81.0-99.0 [facility] Comment on above: Performed By: #### R ENAL #### [facility] [address] [place] [address] Dr. Ember Teague PLT 182 103/ul Normal 150-450 [facility] Comment on above: Performed By: #### R ENAL #### [facility] [address] [place] [address] Dr. Ember Teague RBC 3.16 106/ul Critically low 4.20-5.40 [facility] Comment on above: Performed By: #### R ENAL #### [facility] [address] [place] [address] Dr. Ember Teague WBC 6.8 103/ul Normal 4.0-11.0 [facility] Comment on above: Performed By: #### R ENAL #### [facility] [address] [place] [address] Dr. Ember Teague PROF CHEM 8 (BAS METB)on Anion gap [Moles/Vol] 17.6 mmol/L Normal [facility] Comment on above: Performed By: #### C VDTBH #### [facility] [address] [place] [address] Dr. Ember Teague Calcium [Mass/Vol] 9.0 mg/dL Normal 8.5-10.1 [facility] Comment on above: Performed By: #### C VDTBH #### [facility] [address] [place] [address] Dr. Ember Teague Chloride [Moles/Vol] 104 mmol/L Normal 98-107 [facility] Comment on above: Performed By: #### C VDTBH #### [facility] [address] [address] [address] Ember Teague CO2 [Moles/Vol] 22.2 mmol/L Normal 21.0-32.0 [facility] Comment on above: Performed By: #### C VDTBH #### [facility] [address] [address] [address] Ember Teague Creatinine [Mass/Vol] 2.03 mg/dL Critically high 0.55-1.02 [facility] Comment on above: Performed By: #### C VDTBH #### [facility] [address] [address] [address] Ember Teague EGFR-AF KOSOVAN 29 mL/min/1.73m2 Critically low >=60 [facility] Comment on above: Performed By: #### C VDTBH #### [facility] [address] [place] [address] Dr. Ember Teague EGFR-NON AF KOSOVAN 24 mL/min/1.73m2 Critically low >=60 [facility] Comment on above: Performed By: #### C VDTBH #### [facility] [address] [address] [address] Ebmer Teague Glucose [Mass/Vol] 154 mg/dL Critically high 74-106 [facility] Comment on above: Performed By: #### C VDTBH #### [facility] [address] [place] [address] Dr. Ember Teague Potassium [Moles/Vol] 4.8 mmol/L Normal 3.5-5.1 [facility] Comment on above: Performed By: #### C VDTBH #### [facility] [address] [address] [address] Ember Teague Sodium [Moles/Vol] 139 mmol/L Normal 136-145 [facility] Comment on above: Performed By: #### C VDTBH #### [facility] [address] [address] [address] Ember Teague Urea nitrogen [Mass/Vol] 43.0 mg/dL Critically high 7.0-18.0 [facility] Comment on above: Performed By: #### C VDTBH #### [facility] [address] [address] [address] Ember Teague Urea nitrogen/Creatinine [Mass ratio] 21.2 mg/mg Normal [facility] Comment on above: Performed By: #### C VDTBH #### [facility] [address] [address] [address] Ember Teague CULTURE SPUTUMon 10-24-2022 CULTURE SPUTUM Culture Observations : Beta lactamase positive Isolate 1 Haemophilus influenzae Moderate growth of Normal [facility] Comment on above: Performed By: #### R ENAL #### [facility] [address] [address] [address] Ember Teague SPUTUM GRAM STAINon 10-24-19 COMMENTS Normal [facility] Comment on above: Performed By: #### R ENAL #### [facility] [address] [address] [address] Ember Teague DIPHTHEROIDS [facility] Comment on above: Performed By: #### R ENAL #### [facility] [address] [address] [address] Ember Teague EPITHELIALS >25 Normal [facility] Comment on above: Performed By: #### R ENAL #### [facility] [address] [address] [address] Ember Teague FUNGAL ELEMENTS Normal [facility] Comment on above: Performed By: #### R ENAL #### [facility] [address] [address] [address] Ember Teague GRAM NEG BACILLI [facility] Comment on above: Performed By: #### R ENAL #### [facility] [address] [address] [address] Ember LOCKWOOD NEG DIPPLOCOCCI FEW Normal [facility] Comment on above: Performed By: #### R ENAL #### [facility] [address] [address] [address] Ember Teague GRAM POS BACILLI FEW [facility] Comment on above: Performed By: #### R ENAL #### [facility] [address] [address] [address] Ember Teague GRAM POSITIVE COCCI MANY Normal [facility] Comment on above: Performed By: #### R ENAL #### [facility] [address] [address] [address] Ember Teague WBC (Bld) [#/Vol] 10*3/uL Normal [facility] Comment on above: Performed By: #### R ENAL #### [facility] [address] [address] [address] Ember Teague XR CHEST 2 Von [...] ANGELINA BRISENO Date: 2022-10-24 16:22 Normal [facility] FERRITINon 09-18-2022 Ferritin [Mass/Vol] 612.0 ng/mL Critically high 8.0-252.0 [facility] Comment on above: Performed By: #### F ERR, FETIBC #### [facility] [address] [place] [address] Dr. Ember Teague HEMOGRAM AND PLATELon 2021 Hematocrit (Bld) [Volume fraction] 28.1 % Critically low 36.0-48.0 [facility] Comment on above: Performed By: #### C BC #### [facility] [address] [address] [address] Ember Teague Hemoglobin (Bld) [Mass/Vol] 9.7 g/dL Critically low 12.0-16.0 [facility] Comment on above: Performed By: #### C BC #### [facility] [address] [address] [address] Ember Teague MCH (RBC) [Entitic mass] 31.3 pg Normal 26.7-34.0 [facility] Comment on above: Performed By: #### C BC #### [facility] [address] [place] [address] Dr. Ember Teague MCHC (RBC) [Mass/Vol] 34.5 g/dL Normal 29.9-35.2 [facility] Comment on above: Performed By: #### C BC #### [facility] [address] [place] [address] Dr. Ember Teague MCV (RBC) [Entitic vol] 90.6 fL Normal 81.0-99.0 [facility] Comment on above: Performed By: #### C BC #### [facility] [address] [place] [address] Dr. Ember Teague PLT 183 103/ul Normal 150-450 [facility] Comment on above: Performed By: #### C BC #### [facility] [address] [place] [address] Dr. Ember Teague RBC 3.10 106/ul Critically low 4.20-5.40 [facility] Comment on above: Performed By: #### C BC #### [facility] [address] [place] [address] Dr. Ember Teague WBC 7.2 103/ul Normal 4.0-11.0 [facility] Comment on above: Performed By: #### C BC #### [facility] [address] [place] [address] Dr. Ember Teague IRON AND TIBCon 09-18-2022 % SATURATION 36.0 % Normal [facility] Comment on above: Performed By: #### F ERR, FETIBC #### [facility] [address] [place] [address] Dr. Ember Teague Iron [Mass/Vol] 77.0 ug/dL Normal 50.0-170.0 [facility] Comment on above: Performed By: #### F ERR, FETIBC #### [facility] [address] [place] [address] Dr. Ember Teague TIBC DIRECT 214.0 ug/dL Critically low 250.0-450.0 [facility] Comment on above: Performed By: #### F ERR, FETIBC #### [facility] [address] [address] [address] Ember Teague RENAL FUNCTION PANELon 09-18 Albumin [Mass/Vol] 3.7 g/dL Normal 3.4-5.0 [facility] Comment on above: Performed By: #### R ENAL #### [facility] [address] [address] [address] Ember Teague Calcium [Mass/Vol] 9.5 mg/dL Normal 8.5-10.1 [facility] Comment on above: Performed By: #### R ENAL #### [facility] [address] [place] [address] Dr. Ember Tegaue Chloride [Moles/Vol] 103 mmol/L Normal 98-107 [facility] Comment on above: Performed By: #### R ENAL #### [facility] [address] [place] [address] Dr. Ember Teague CO2 [Moles/Vol] 21.1 mmol/L Normal 21.0-32.0 [facility] Comment on above: Performed By: #### R ENAL #### [facility] [address] [place] [address] Dr. Ember Teague Creatinine [Mass/Vol] 1.85 mg/dL Critically high 0.55-1.02 [facility] Comment on above: Performed By: #### R ENAL #### [facility] [address] [address] [address] Ember Teague EGFR-AF KOSOVAN 32 mL/min/1.73m2 Critically low >=60 [facility] Comment on above: Performed By: #### R ENAL #### [facility] [address] [place] [address] Dr. Ember Teague EGFR-NON AF KOSOVAN 26 mL/min/1.73m2 Critically low >=60 [facility] Comment on above: Performed By: #### R ENAL #### [facility] [address] [place] [address] Dr. Ember Teague Glucose [Mass/Vol] 183 mg/dL Critically high 74-106 [facility] Comment on above: Performed By: #### R ENAL #### [facility] [address] [place] [address] Dr. Ember Teague Phosphate [Mass/Vol] 3.7 mg/dL Normal 2.6-4.7 [facility] Comment on above: Performed By: #### R ENAL #### [facility] [address] [place] [address] Dr. Ember Teague Potassium [Moles/Vol] 4.9 mmol/L Normal 3.5-5.1 [facility] Comment on above: Performed By: #### R ENAL #### [facility] [address] [place] [address] Dr. Ember Teague Sodium [Moles/Vol] 138 mmol/L Normal 136-145 [facility] Comment on above: Performed By: #### R ENAL #### [facility] [address] [place] [address] Dr. Ember Teague Urea nitrogen [Mass/Vol] 40.0 mg/dL Critically high 7.0-18.0 [facility] Comment on above: Performed By: #### R ENAL #### [facility] [address] [place] [address] Dr. Ember Teague CULTURE URINEon 09-15-2022 CULTURE [...] Trimethoprim/Sulfamet hoxazole <=20 S F Normal [facility] Comment on above: Performed By: #### R ENAL #### [facility] [address] [address] [address] Ember Teague BNPon 09-11-2022 Natriuretic peptide B (Bld) [Mass/Vol] 408.0 pg/mL Normal <=1,800.0 [facility] Comment on above: Performed By: #### P THINT #### [facility] [address] [place] [address] Dr. Ember Teague CBC AUTO DIFFon 09-11-2022 BASO # 0.0 103/ul Normal 0.0-0.1 [facility] Comment on above: Performed By: #### C BC #### [facility] [address] [place] [address] Dr. Ember Teague Basophils/100 WBC (Bld) 0.3 % Normal 0.2-2.0 [facility] Comment on above: Performed By: #### C BC #### [facility] [address] [place] [address] Dr. Ember Teague EO # 0.1 103/ul Normal 0.0-0.7 [facility] Comment on above: Performed By: #### C BC #### [facility] [address] [place] [address] Dr. Ember Teague Eosinophils/100 WBC (Bld) 1.9 % Normal 0.9-7.0 [facility] Comment on above: Performed By: #### C BC #### [facility] [address] [place] [address] Dr. Ember Teague Erythrocyte distribution width (RBC) [Ratio] 15.2 % Critically high 11.0-15.0 [facility] Comment on above: Performed By: #### C BC #### [facility] [address] [place] [address] Dr. Ember Teague Hematocrit (Bld) [Volume fraction] 26.6 % Critically low 36.0-48.0 [facility] Comment on above: Performed By: #### C BC #### [facility] [address] [place] [address] Dr. Ember Teague Hemoglobin (Bld) [Mass/Vol] 9.0 g/dL Critically low 12.0-16.0 [facility] Comment on above: Performed By: #### C BC #### [facility] [address] [place] [address] Dr. Ember Teague IG # 0.02 10e3/ul Normal 0.00-0.03 [facility] Comment on above: Performed By: #### C BC #### [facility] [address] [place] [address] Dr. Ember Teague IG % 0.3 % Normal 0.0-0.5 [facility] Comment on above: Performed By: #### C BC #### [facility] [address] [place] [address] Dr. Ember Teague LYMPH # 1.9 103/ul Normal 1.2-3.8 [facility] Comment on above: Performed By: #### C BC #### [facility] [address] [place] [address] Dr. Ember Teague Lymphocytes/100 WBC (Bld) 32.4 % Normal 20.5-60.0 [facility] Comment on above: Performed By: #### C BC #### [facility] [address] [place] [address] Dr. Ember Teague MANUAL DIFF REQ NO Normal [facility] Comment on above: Performed By: #### C BC #### [facility] [address] [place] [address] Dr. Ember Teague MCH (RBC) [Entitic mass] 31.1 pg Normal 26.7-34.0 [facility] Comment on above: Performed By: #### C BC #### [facility] [address] [place] [address] Dr. Ember Teague MCHC (RBC) [Mass/Vol] 33.8 g/dL Normal 29.9-35.2 [facility] Comment on above: Performed By: #### C BC #### [facility] [address] [place] [address] Dr. Ember Teague MCV (RBC) [Entitic vol] 92.0 fL Normal 81.0-99.0 [facility] Comment on above: Performed By: #### C BC #### [facility] [address] [address] [address] Ember Teague MONO # 0.6 103/ul Normal 0.3-0.8 [facility] Comment on above: Performed By: #### C BC #### [facility] [address] [address] [address] Ember Teague Monocytes/100 WBC (Bld) 10.0 % Normal 1.7-12.0 [facility] Comment on above: Performed By: #### C BC #### [facility] [address] [place] [address] Dr. Ember Teague NEUT # 3.2 103/ul Normal 1.4-6.5 [facility] Comment on above: Performed By: #### C BC #### [facility] [address] [place] [address] Dr. Ember Teague Neutrophils/100 WBC (Bld) 55.1 % Normal 43.0-75.0 [facility] Comment on above: Performed By: #### C BC #### [facility] [address] [place] [address] Dr. Ember Teague Platelet mean volume (Bld) [Entitic vol] 9.4 fL Critically low 9.5-13.5 [facility] Comment on above: Performed By: #### C BC #### [facility] [address] [place] [address] Dr. Ember Teague PLT 196 103/ul Normal 150-450 [facility] Comment on above: Performed By: #### C BC #### [facility] [address] [place] [address] Dr. Ember Teague RBC 2.89 106/ul Critically low 4.20-5.40 [facility] Comment on above: Performed By: #### C BC #### [facility] [address] [place] [address] Dr. Ember Teague WBC 5.8 103/ul Normal 4.0-11.0 [facility] Comment on above: Performed By: #### C BC #### [facility] [address] [place] [address] Dr. Ember Teague PROF 14(COMP METB)on 022 Albumin [Mass/Vol] 3.7 g/dL Normal 3.4-5.0 [facility] Comment on above: Performed By: #### P THINT #### [facility] [address] [place] [address] Dr. Ember Teague Albumin/Globulin [Mass ratio] 1.0 {ratio} Normal [facility] Comment on above: Performed By: #### P THINT #### [facility] [address] [address] [address] Ember Teague ALP [Catalytic activity/Vol] 79 U/L Normal 46-116 [facility] Comment on above: Performed By: #### P THINT #### [facility] [address] [place] [address] Dr. Ember Teague ALT [Catalytic activity/Vol] 24 U/L Normal 14-59 [facility] Comment on above: Performed By: #### P THINT #### [facility] [address] [place] [address] Dr. Ember Teague Anion gap [Moles/Vol] 12.8 mmol/L Normal [facility] Comment on above: Performed By: #### P THINT #### [facility] [address] [place] [address] Dr. Ember Teague AST [Catalytic activity/Vol] 17 U/L Normal 15-37 [facility] Comment on above: Performed By: #### P THINT #### [facility] [address] [place] [address] Dr. Ember Teague Bilirubin [Mass/Vol] 0.5 mg/dL Normal 0.2-1.0 [facility] Comment on above: Performed By: #### P THINT #### [facility] [address] [place] [address] Dr. Ember Teague Calcium [Mass/Vol] 9.4 mg/dL Normal 8.5-10.1 [facility] Comment on above: Performed By: #### P THINT #### [facility] [address] [place], [place] [id number] Dr. Ember Teague Chloride [Moles/Vol] 101 mmol/L Normal 98-107 [facility] Comment on above: Performed By: #### P THINT #### [facility] [address] [address] [address] Ember Teague CO2 [Moles/Vol] 24.3 mmol/L Normal 21.0-32.0 [facility] Comment on above: Performed By: #### P THINT #### [facility] [address] [address] [address] Ember Teague Creatinine [Mass/Vol] 2.84 mg/dL Critically high 0.55-1.02 [facility] Comment on above: Performed By: #### P THINT #### [facility] [address] [place] [address] Dr. Ember Teague EGFR-AF KOSOVAN 20 mL/min/1.73m2 Critically low >=60 [facility] Comment on above: Performed By: #### P THINT #### [facility] [address] [place] [address] Dr. Ember Teague EGFR-NON AF KOSOVAN 16 mL/min/1.73m2 Critically low >=60 [facility] Comment on above: Performed By: #### P THINT #### [facility] [address] [place] [address] Dr. Ember Teague Globulin (S) [Mass/Vol] 3.7 g/dL Normal [facility] Comment on above: Performed By: #### P THINT #### [facility] [address] [place] [address] Dr. Ember Teague Glucose [Mass/Vol] 174 mg/dL Critically high 74-106 [facility] Comment on above: Performed By: #### P THINT #### [facility] [address] [address] [address] Ember Teague Potassium [Moles/Vol] 5.1 mmol/L Normal 3.5-5.1 [facility] Comment on above: Performed By: #### P THINT #### [facility] [address] [place] [address] Dr. Ember Teague Protein [Mass/Vol] 7.4 g/dL Normal 6.4-8.2 [facility] Comment on above: Performed By: #### P THINT #### [facility] [address] [address] [address] Ember Teague Sodium [Moles/Vol] 133 mmol/L Critically low 136-145 [facility] Comment on above: Performed By: #### P THINT #### [facility] [address] [address] [address] Ember Teague Urea nitrogen [Mass/Vol] 68.0 mg/dL Critically high 7.0-18.0 [facility] Comment on above: Performed By: #### P THINT #### [facility] [address] [place] [address] Dr. Ember Teague Urea nitrogen/Creatinine [Mass ratio] 23.9 mg/mg Normal [facility] Comment on above: Performed By: #### P THINT #### [facility] [address] [place] [address] Dr. Ember Teague TROPONIN, HIGH SENSITIVITYon 09-11-2022 HSTROP 9.1 pg/mL Normal 4.0-51.3 [facility] Comment on above: Result Comment: CUT- OFF POINTS HAVE BEEN ESTABLISHED BASED ON THE FOURTH UNIVERSAL DEFINITIONS OF MYOCARDIAL INFARCTION. THE UPPER REFERENCE LIMIT (URL) OF TROPONIN, DEFINED THE 99TH PERCENTILE OF cTnI DISTRIBUTION IN A REFERENCE POPULATION, HAS BEEN CONFIRMED THE DECISION THRESHOLD FOR ID DIAGNOSIS. Performed By: #### P THINT #### [facility] [address] [place] [address] Dr. Ember Teague UA RANDOM W/MICROSCOPICon BACTERIA NONE SEEN Normal NONE SEEN [facility] Comment on above: Performed By: #### C VDTBH #### [facility] [address] [place] [address] Dr. Ember Teague Bilirubin Ql (U) Negative Normal NEGATIVE [facility] Comment on above: Performed By: #### C VDTBH #### [facility] [address] [place] [address] Dr. Ember Teague CAST NONE SEEN Normal NONE SEEN [facility] Comment on above: Performed By: #### C VDTBH #### [facility] [address] [place] [address] Dr. Ember Teague Clarity (U) CLEAR Normal CLEAR [facility] Comment on above: Performed By: #### C VDTBH #### [facility] [address] [place] [address] Dr. Ember Teague Color (U) LT. YELLOW Normal YELLOW [facility] Comment on above: Performed By: #### C VDTBH #### [facility] [address] [place] [address] Dr. Ember Teague Crystals LM Nom (Urine sed) NONE SEEN Normal NONE SEEN [facility] Comment on above: Performed By: #### C VDTBH #### [facility] [address] [place] [address] Dr. Ember Teague Epithelial cells LM Ql (Urine sed) FEW Abnormal NONE SEEN /RARE [facility] Comment on above: Performed By: #### C VDTBH #### [facility] [address] [place] [address] Dr. Ember Teague Glucose Ql (U) Negative Normal NEGATIVE [facility] Comment on above: Performed By: #### C VDTBH #### [facility] [address] [place] [address] Dr. Ember Teague Hemoglobin Ql (U) Negative Normal NEGATIVE [facility] Comment on above: Performed By: #### C VDTBH #### [facility] [address] [place] [address] Dr. Ember Teague Ketones Ql (U) Negative Normal NEGATIVE [facility] Comment on above: Performed By: #### C VDTBH #### [facility] [address] [place] [address] Dr. Ember Teague LEUKOCYTES Negative Normal NEGATIVE [facility] Comment on above: Performed By: #### C VDTBH #### [facility] [address] [place] [address] Dr. Ember Teague MUCOUS NONE SEEN Normal NONE SEEN [facility] Comment on above: Performed By: #### C VDTBH #### [facility] [address] [place] [address] Dr. Ember Teague Nitrite Ql (U) Negative Normal NEGATIVE [facility] Comment on above: Performed By: #### C VDTBH #### [facility] [address] [place] [address] Dr. Ember Teague pH (U) 5.5 [pH] Normal 5-9 [facility] Comment on above: Performed By: #### C VDTBH #### [facility] [address] [place] [address] Dr. Ember Teague RBC NONE SEEN Abnormal 0-2 [facility] Comment on above: Performed By: #### C VDTBH #### [facility] [address] [place] [address] Dr. Ember Teague SPEC GRAVITY 1.010 Normal 1.005-<=1.025 [facility] Comment on above: Performed By: #### C VDTBH #### [facility] [address] [place] [address] Dr. Ember Teague UA PROTEIN Negative Normal NEGATIVE/ TRACE [facility] Comment on above: Performed By: #### C VDTBH #### [facility] [address] [place] [address] Dr. Ember Teague Urobilinogen Qn (U) 0.2 {Esau'U}/dL Normal 0.2 - 1. 0 [facility] Comment on above: Performed By: #### C VDTBH #### [facility] [address] [place] [address] Dr. Ember Teague WBC NONE SEEN Normal NONE SEEN [facility] Comment on above: Performed By: #### C VDTBH #### [facility] [address] [place] [address] Dr. Ember Teague CBC AUTO DIFFon 08-13-2022 BASO # 0.0 103/ul Normal 0.0-0.1 [facility] Comment on above: Performed By: #### C BC #### [facility] [address] [place] [address] Dr. Ember Teague Basophils/100 WBC (Bld) 0.3 % Normal 0.2-2.0 [facility] Comment on above: Performed By: #### C BC #### [facility] [address] [place] [address] Dr. Ember Teague EO # 0.2 103/ul Normal 0.0-0.7 [facility] Comment on above: Performed By: #### C BC #### [facility] [address] [place] [address] Dr. Ember Teague Eosinophils/100 WBC (Bld) 3.7 % Normal 0.9-7.0 [facility] Comment on above: Performed By: #### C BC #### [facility] [address] [place] [address] Dr. Ember Teague Erythrocyte distribution width (RBC) [Ratio] 15.0 % Normal 11.0-15.0 [facility] Comment on above: Performed By: #### C BC #### [facility] [address] [place] [address] Dr. Ember Teague Hematocrit (Bld) [Volume fraction] 27.9 % Critically low 36.0-48.0 [facility] Comment on above: Performed By: #### C BC #### [facility] [address] [place] [address] Dr. Ember Teague Hemoglobin (Bld) [Mass/Vol] 9.7 g/dL Critically low 12.0-16.0 [facility] Comment on above: Performed By: #### C BC #### [facility] [address] [place] [address] Dr. Ember Teague IG # 0.01 10e3/ul Normal 0.00-0.03 [facility] Comment on above: Performed By: #### C BC #### [facility] [address] [place] [address] Dr. Ember Teague IG % 0.2 % Normal 0.0-0.5 [facility] Comment on above: Performed By: #### C BC #### [facility] [address] [place] [address] Dr. Ember Teague LYMPH # 1.9 103/ul Normal 1.2-3.8 [facility] Comment on above: Performed By: #### C BC #### [facility] [address] [place] [address] Dr. Ember Teague Lymphocytes/100 WBC (Bld) 32.2 % Normal 20.5-60.0 [facility] Comment on above: Performed By: #### C BC #### [facility] [address] [place] [address] Dr. Ember Teague MANUAL DIFF REQ NO Normal [facility] Comment on above: Performed By: #### C BC #### [facility] [address] [place] [address] Dr. Ember Teague MCH (RBC) [Entitic mass] 31.4 pg Normal 26.7-34.0 [facility] Comment on above: Performed By: #### C BC #### [facility] [address] [place] [address] Dr. Ember Teague MCHC (RBC) [Mass/Vol] 34.8 g/dL Normal 29.9-35.2 [facility] Comment on above: Performed By: #### C BC #### [facility] [address] [place] [address] Dr. Ember Teague MCV (RBC) [Entitic vol] 90.3 fL Normal 81.0-99.0 [facility] Comment on above: Performed By: #### C BC #### [facility] [address] [place] [address] Dr. Ember Teague MONO # 0.6 103/ul Normal 0.3-0.8 [facility] Comment on above: Performed By: #### C BC #### [facility] [address] [place] [address] Dr. Ember Teague Monocytes/100 WBC (Bld) 9.8 % Normal 1.7-12.0 [facility] Comment on above: Performed By: #### C BC #### [facility] [address] [place] [address] Dr. Ember Teague NEUT # 3.2 103/ul Normal 1.4-6.5 [facility] Comment on above: Performed By: #### C BC #### [facility] [address] [place] [address] Dr. Ember Teague Neutrophils/100 WBC (Bld) 53.8 % Normal 43.0-75.0 [facility] Comment on above: Performed By: #### C BC #### [facility] [address] [place] [address] Dr. Ember Teague Platelet mean volume (Bld) [Entitic vol] 10.0 fL Normal 9.5-13.5 [facility] Comment on above: Performed By: #### C BC #### [facility] [address] [place] [address] Dr. Ember Teague PLT 194 103/ul Normal 150-450 [facility] Comment on above: Performed By: #### C BC #### [facility] [address] [place] [address] Dr. Ember Teague RBC 3.09 106/ul Critically low 4.20-5.40 [facility] Comment on above: Performed By: #### C BC #### [facility] [address] [place] [address] Dr. Ember Teague WBC 6.0 103/ul Normal 4.0-11.0 [facility] Comment on above: Performed By: #### C BC #### [facility] [address] [place] [address] Dr. Ember Teague PTH INTACTon 06-26-2022 PTH, Intact 39 pg/mL Normal 15-65 [facility] Comment on above: Performed By: #### P THINT #### [facility] [address] [place] [address] Dr. Ember Teague CBC AUTO DIFFon 06-25-2022 BASO # 0.1 103/ul Normal 0.0-0.1 [facility] Comment on above: Performed By: #### C VDTBH #### [facility] [address] [place] [address] Dr. Ember Teague Basophils/100 WBC (Bld) 0.6 % Normal 0.2-2.0 [facility] Comment on above: Performed By: #### C VDTBH #### [facility] [address] [place] [address] Dr. Ember Teague EO # 0.2 103/ul Normal 0.0-0.7 [facility] Comment on above: Performed By: #### C VDTBH #### [facility] [address] [place] [address] Dr. Ember Teague Eosinophils/100 WBC (Bld) 3.0 % Normal 0.9-7.0 [facility] Comment on above: Performed By: #### C VDTBH #### [facility] [address] [place] [address] Dr. Ember Teague Erythrocyte distribution width (RBC) [Ratio] 14.2 % Normal 11.0-15.0 [facility] Comment on above: Performed By: #### C VDTBH #### [facility] [address] [place] [address] Dr. Ember Teague Hematocrit (Bld) [Volume fraction] 30.9 % Critically low 36.0-48.0 [facility] Comment on above: Performed By: #### C VDTBH #### [facility] [address] [place] [address] Dr. Ember Teague Hemoglobin (Bld) [Mass/Vol] 10.6 g/dL Critically low 12.0-16.0 [facility] Comment on above: Performed By: #### C VDTBH #### [facility] [address] [place] [address] Dr. Ember Teague IG # 0.04 10e3/ul Critically high 0.00-0.03 [facility] Comment on above: Performed By: #### C VDTBH #### [facility] [address] [place] [address] Dr. Ember Teague IG % 0.5 % Normal 0.0-0.5 [facility] Comment on above: Performed By: #### C VDTBH #### [facility] [address] [place] [address] Dr. Ember Teague LYMPH # 2.2 103/ul Normal 1.2-3.8 [facility] Comment on above: Performed By: #### C VDTBH #### [facility] [address] [place] [address] Dr. Ember Teague Lymphocytes/100 WBC (Bld) 27.0 % Normal 20.5-60.0 [facility] Comment on above: Performed By: #### C VDTBH #### [facility] [address] [place] [address] Dr. Ember Teague MANUAL DIFF REQ NO Normal [facility] Comment on above: Performed By: #### C VDTBH #### [facility] [address] [place] [address] Dr. Ember Teague MCH (RBC) [Entitic mass] 31.2 pg Normal 26.7-34.0 [facility] Comment on above: Performed By: #### C VDTBH #### [facility] [address] [place] [address] Dr. Ember Teague MCHC (RBC) [Mass/Vol] 34.3 g/dL Normal 29.9-35.2 [facility] Comment on above: Performed By: #### C VDTBH #### [facility] [address] [place] [address] Dr. Ember Teague MCV (RBC) [Entitic vol] 90.9 fL Normal 81.0-99.0 [facility] Comment on above: Performed By: #### C VDTBH #### [facility] [address] [place] [address] Dr. Ember Teague MONO # 0.7 103/ul Normal 0.3-0.8 [facility] Comment on above: Performed By: #### C VDTBH #### [facility] [address] [place] [address] Dr. Ember Teague Monocytes/100 WBC (Bld) 9.2 % Normal 1.7-12.0 [facility] Comment on above: Performed By: #### C VDTBH #### [facility] [address] [address] [address] Ember Teague NEUT # 4.8 103/ul Normal 1.4-6.5 [facility] Comment on above: Performed By: #### C VDTBH #### [facility] [address] [address] [address] Ember Teague Neutrophils/100 WBC (Bld) 59.7 % Normal 43.0-75.0 [facility] Comment on above: Performed By: #### C VDTBH #### [facility] [address] [address] [address] Ember Teague Platelet mean volume (Bld) [Entitic vol] 9.3 fL Critically low 9.5-13.5 [facility] Comment on above: Performed By: #### C VDTBH #### [facility] [address] [place] [address] Dr. Ember Teague PLT 227 103/ul Normal 150-450 [facility] Comment on above: Performed By: #### C VDTBH #### [facility] [address] [address] [address] Ember Teague RBC 3.40 106/ul Critically low 4.20-5.40 [facility] Comment on above: Performed By: #### C VDTBH #### [facility] [address] [address] [address] Ember Teague WBC 8.0 103/ul Normal 4.0-11.0 [facility] Comment on above: Performed By: #### C VDTBH #### [facility] [address] [place] [address] Dr. Ember Teague MRI LSPINE WO CONon [...] YANET HUERTA Date: 2022-06-25 08:45 Normal [facility] RENAL FUNCTION PANELon 06-25 Albumin [Mass/Vol] 3.9 g/dL Normal 3.4-5.0 [facility] Comment on above: Performed By: #### P THINT #### [facility] [address] [address] [address] Ember Teague Calcium [Mass/Vol] 9.5 mg/dL Normal 8.5-10.1 [facility] Comment on above: Performed By: #### P THINT #### [facility] [address] [address] [address] Ember Teague Chloride [Moles/Vol] 102 mmol/L Normal 98-107 [facility] Comment on above: Performed By: #### P THINT #### [facility] [address] [address] [address] Ember Teague CO2 [Moles/Vol] 23.8 mmol/L Normal 21.0-32.0 [facility] Comment on above: Performed By: #### P THINT #### [facility] [address] [address] [address] Ember Teague Creatinine [Mass/Vol] 1.75 mg/dL Critically high 0.55-1.02 [facility] Comment on above: Performed By: #### P THINT #### [facility] [address] [address] [address] Ember Teague EGFR-AF KOSOVAN 34 mL/min/1.73m2 Critically low >=60 [facility] Comment on above: Performed By: #### P THINT #### [facility] [address] [address] [address] Ember Teague EGFR-NON AF KOSOVAN 28 mL/min/1.73m2 Critically low >=60 [facility] Comment on above: Performed By: #### P THINT #### [facility] [address] [address] [address] Ember Teague Glucose [Mass/Vol] 199 mg/dL Critically high 74-106 [facility] Comment on above: Performed By: #### P THINT #### [facility] [address] [address] [address] Ember Teague Phosphate [Mass/Vol] 4.3 mg/dL Normal 2.6-4.7 [facility] Comment on above: Performed By: #### P THINT #### [facility] [address] [address] [address] Ember Teague Potassium [Moles/Vol] 4.9 mmol/L Normal 3.5-5.1 [facility] Comment on above: Performed By: #### P THINT #### [facility] [address] [address] [address] Ember Teague Sodium [Moles/Vol] 135 mmol/L Critically low 136-145 Th [facility] Comment on above: Performed By: #### P THINT #### [facility] [address] [address] [address] Ember Teague Urea nitrogen [Mass/Vol] 34.0 mg/dL Critically high 7.0-18.0 [facility] Comment on above: Performed By: #### P THINT #### [facility] [address] [address] [address] Ember Teague VITAMIN D 25 OHon 06-25-2022 VIT D 25-OH 40.6 ng/mL Normal [facility] Comment on above: Performed By: #### P THINT #### [facility] [address] [address] [address] Ember Teague VIT D RANGES SEE BELOW Normal [facility] Comment on above: Result Comment: <20 ng/mL Vit D deficient 20 - <30 ng/mL Vit D insufficient 30 - 100 ng/mL Vit D sufficient >100 ng/mL Potential Toxicity Performed By: #### P THINT #### [facility] [address] [place] [address] Dr. Ember Teague Covid-19 PCR (CVDTB)on 06-07 SARS-CoV-2 (COVID-19) RNA ALEXX+probe Ql (Unsp spec) Not detected Normal NOT DETECTED [facility] Comment on above: Result Comment: This test is not yet approved or cleared by the [place] FDA. When there are no FDA-approved or cleared tests available, and other criteria are met, FDA can make tests available under an emergency access mechanism called an Emergency Use Authorization (EUA). The EUA for this test is supported by the [employer] of Health and Human Service's (HHS's) declaration [...] SARS-CoV-2. Performed By: #### C VDTBH #### [facility] [address] [place] [address] LSPINE WO CONon [...] YANET HUERTA Date: 2022-06-01 18:02 Normal [facility] XR LSPINE MIN 4 VIEWSon 05-07 [...] YANET HUERTA Date: 2022-05-21 15:25 Normal [facility] PTH INTACTon 05-03-2022 PTH, Intact 60 pg/mL Normal 15-65 [facility] Comment on above: Performed By: #### C VDTBH #### [facility] [address] [address] [address] Ember Teague VIT D 25-OH LABCORPon 2021 Vitamin D, 25-Hydroxy 26.1 ng/mL Critically low 30.0-100.0 [facility] Comment on above: Result Comment: Sara min D deficiency has been defined by the [place] [employer] and an Endocrine Society practice guideline as a level of serum 25-OH vitamin D less than 20 ng/mL (1,2). The Endocrine Society went on to further define vitamin D insufficiency as a level between 21 and 29 ng/mL (2). 1. IOM ([place] [employer]). 2010. Dietary reference intakes for calcium and D. [place]: The National Academies Press. 2. Sherice MF, Wendy NC, Huan ZHONG, et al. Evaluation, treatment, and prevention of vitamin D deficiency: an Endocrine Society clinical practice guideline. JCEM. 2010; 96(7):1911-30. Performed By: #### R ENAL #### [facility] [address] [address] [address] Ember Teague FERRITINon 05-02-2022 Ferritin [Mass/Vol] 590.0 ng/mL Critically high 8.0-252.0 [facility] Comment on above: Performed By: #### R ENAL #### [facility] [address] [address] [address] Ember Teague HEMOGRAM AND PLATELon 2021 Hematocrit (Bld) [Volume fraction] 28.4 % Critically low 36.0-48.0 [facility] Comment on above: Performed By: #### C VDTBH #### [facility] [address] [address] [address] Ember Teague Hemoglobin (Bld) [Mass/Vol] 9.6 g/dL Critically low 12.0-16.0 [facility] Comment on above: Performed By: #### C VDTBH #### [facility] [address] [place] [address] Dr. Ember Teague MCH (RBC) [Entitic mass] 31.0 pg Normal 26.7-34.0 [facility] Comment on above: Performed By: #### C VDTBH #### [facility] [address] [place] [address] Dr. Ember Teague MCHC (RBC) [Mass/Vol] 33.8 g/dL Normal 29.9-35.2 [facility] Comment on above: Performed By: #### C VDTBH #### [facility] [address] [place] [address] Dr. Ember Teague MCV (RBC) [Entitic vol] 91.6 fL Normal 81.0-99.0 [facility] Comment on above: Performed By: #### C VDTBH #### [facility] [address] [place] [address] Dr. Ember Teague PLT 189 103/ul Normal 150-450 [facility] Comment on above: Performed By: #### C VDTBH #### [facility] [address] [place] [address] Dr. Ember Teague RBC 3.10 106/ul Critically low 4.20-5.40 [facility] Comment on above: Performed By: #### C VDTBH #### [facility] [address] [place] [address] Dr. Ember Teague WBC 6.2 103/ul Normal 4.0-11.0 [facility] Comment on above: Performed By: #### C VDTBH #### [facility] [address] [place] [address] Dr. Ember Teague IRON AND TIBCon 05-02-2022 % SATURATION 34.3 % Normal [facility] Comment on above: Performed By: #### R ENAL #### [facility] [address] [place] [address] Dr. Ember Teague Iron [Mass/Vol] 69.0 ug/dL Normal 50.0-170.0 [facility] Comment on above: Performed By: #### R ENAL #### [facility] [address] [address] [address] Ember Teague TIBC DIRECT 201.0 ug/dL Critically low 250.0-450.[address] [facility] Comment on above: Performed By: #### R ENAL #### [facility] [address] [address] [address] Ember Teague MAGNESIUMon 05-02-2022 Magnesium [Mass/Vol] 1.7 mg/dL Critically low 1.8-2.4 [facility] Comment on above: Performed By: #### C VDTBH #### [facility] [address] [place] [address] Dr. Ember Teague RENAL FUNCTION PANELon 05-02 Albumin [Mass/Vol] 3.6 g/dL Normal 3.4-5.0 [facility] Comment on above: Performed By: #### C VDTBH #### [facility] [address] [place] [address] Dr. Ember Teague Calcium [Mass/Vol] 9.2 mg/dL Normal 8.5-10.1 [facility] Comment on above: Performed By: #### C VDTBH #### [facility] [address] [place] [address] Dr. Ember Teague Chloride [Moles/Vol] 107 mmol/L Normal 98-107 [facility] Comment on above: Performed By: #### C VDTBH #### [facility] [address] [place] [address] Dr. Ember Teague CO2 [Moles/Vol] 21.2 mmol/L Normal 21.0-32.0 [facility] Comment on above: Performed By: #### C VDTBH #### [facility] [address] [place] [address] Dr. Embre Teague Creatinine [Mass/Vol] 1.75 mg/dL Critically high 0.55-1.02 [facility] Comment on above: Performed By: #### C VDTBH #### [facility] [address] [address] [address] Ember Teague EGFR-AF KOSOVAN 34 mL/min/1.73m2 Critically low >=60 [facility] Comment on above: Performed By: #### C VDTBH #### [facility] [address] [address] [address] Ember Teague EGFR-NON AF KOSOVAN 28 mL/min/1.73m2 Critically low >=60 [facility] Comment on above: Performed By: #### C VDTBH #### [facility] [address] [address] [address] Ember Teague Glucose [Mass/Vol] 193 mg/dL Critically high 74-106 [facility] Comment on above: Performed By: #### C VDTBH #### [facility] [address] [place] [address] Dr. Ember Teague Phosphate [Mass/Vol] 4.2 mg/dL Normal 2.6-4.7 [facility] Comment on above: Performed By: #### C VDTBH #### [facility] [address] [address] [address] Ember Teague Potassium [Moles/Vol] 5.1 mmol/L Normal 3.5-5.1 [facility] Comment on above: Performed By: #### C VDTBH #### [facility] [address] [address] [address] Ember Teague Sodium [Moles/Vol] 139 mmol/L Normal 136-145 [facility] Comment on above: Performed By: #### C VDTBH #### [facility] [address] [address] [address] Ember Teague Urea nitrogen [Mass/Vol] 34.0 mg/dL Critically high 7.0-18.0 [facility] Comment on above: Performed By: #### C VDTBH #### [facility] [address] [address] [address] Ember Teague UA RANDOM W/MICROSCOPICon BACTERIA SMALL Abnormal NONE SEEN [facility] Comment on above: Performed By: #### C VDTBH #### [facility] [address] [address] [address] Ember Teague Bilirubin Ql (U) Negative Normal NEGATIVE [facility] Comment on above: Performed By: #### C VDTBH #### [facility] [address] [place] [address] Dr. Ember Teague CAST NONE SEEN Normal NONE SEEN [facility] Comment on above: Performed By: #### C VDTBH #### [facility] [address] [address] [address] Ember Teague Clarity (U) CLEAR Normal CLEAR [facility] Comment on above: Performed By: #### C VDTBH #### [facility] [address] [place] [address] Dr. Ember Teague Color (U) LT. YELLOW Normal YELLOW [facility] Comment on above: Performed By: #### C VDTBH #### [facility] [address] [place] [address] Dr. Ember Teague Crystals LM Nom (Urine sed) NONE SEEN Normal NONE SEEN [facility] Comment on above: Performed By: #### C VDTBH #### [facility] [address] [place] [address] Dr. Ember Teague Epithelial cells LM Ql (Urine sed) MODERATE Abnormal NONE SEEN /RARE [facility] Comment on above: Performed By: #### C VDTBH #### [facility] [address] [place] [address] Dr. Ember Teague Glucose Ql (U) Negative Normal NEGATIVE [facility] Comment on above: Performed By: #### C VDTBH #### [facility] [address] [place] [address] Dr. Ember Teague Hemoglobin Ql (U) Negative Normal NEGATIVE [facility] Comment on above: Performed By: #### C VDTBH #### [facility] [address] [place] [address] Dr. Ember Teague Ketones Ql (U) Negative Normal NEGATIVE [facility] Comment on above: Performed By: #### C VDTBH #### [facility] [address] [place] [address] Dr. Ember Teague LEUKOCYTES TRACE Abnormal NEGATIVE [facility] Comment on above: Performed By: #### C VDTBH #### [facility] [address] [place] [address] Dr. Ember Teague MUCOUS NONE SEEN Normal NONE SEEN [facility] Comment on above: Performed By: #### C VDTBH #### [facility] [address] [place] [address] Dr. Ember Teague Nitrite Ql (U) Negative Normal NEGATIVE [facility] Comment on above: Performed By: #### C VDTBH #### [facility] [address] [place] [address] Dr. Ember Teague pH (U) 5.0 [pH] Normal 5-9 [facility] Comment on above: Performed By: #### C VDTBH #### [facility] [address] [place] [address] Dr. Ember Teague RBC NONE SEEN Abnormal 0-2 [facility] Comment on above: Performed By: #### C VDTBH #### [facility] [address] [place] [address] Dr. Ember Teague SPEC GRAVITY 1.015 Normal 1.005-<=1.025 [facility] Comment on above: Performed By: #### C VDTBH #### [facility] [address] [place] [address] Dr. Ember Teague UA PROTEIN TRACE Normal NEGATIVE/ TRACE [facility] Comment on above: Performed By: #### C VDTBH #### [facility] [address] [place] [address] Dr. Ember Teague Urobilinogen Qn (U) 0.2 {Esau'U}/dL Normal 0.2 - 1. 0 [facility] Comment on above: Performed By: #### C VDTBH #### [facility] [address] [place] [address] Dr. Ember Teague WBC 0-2 Abnormal NONE SEEN [facility] Comment on above: Performed By: #### C VDTBH #### [facility] [address] [address] [address] Ember Teague URIC ACID SERUMon 05-02-2022 Urate [Mass/Vol] 4.4 mg/dL Normal 2.6-6.0 [facility] Comment on above: Performed By: #### C BC #### [facility] [address] [address] [address] Ember Teague URINE T PROTEIN CREAT RATIOo n 05-02-2022 Protein (U) [Mass/Vol] 33.7 mg/dL Critically high <=12.0 [facility] Comment on above: Performed By: #### C VDTBH #### [facility] [address] [address] [address] Ember Teague UR PROT CREAT RAT 0.69 Normal [facility] Comment on above: Performed By: #### C VDTBH #### [facility] [address] [address] [address] Ember Teague URINE CREAT 48.93 mg/dL Normal 20.00-300.00 [facility] Comment on above: Performed By: #### C VDTBH #### [facility] [address] [address] [address] Ember Teague Vital Signs Date Time Vital Sign Value Performing Clinician Facility 11-18-2023 10:00-0500 Body height 168.91 cm Ron Doreen Other [facility] Other 11-18-2023 10:00-0500 Body mass index (BMI) [Ratio] 29.85 kg/m2 Ron Doreen Other [facility] Other 11-18-2023 10:00-0500 Body temperature 97.3 [degF] Ron Doreen Other [facility] Other 11-18-2023 10:00-0500 Body weight 85.19 kg Ron Doreen Other [facility] Other 11-18-2023 10:00-0500 Diastolic blood pressure 79 mm[Hg] Ron Doreen Other [facility] Other 11-18-2023 10:00-0500 Respiratory rate 18 /min Ron Doreen Other [facility] Other 11-18-2023 10:00-0500 SaO2% (BldA) [Mass fraction] 98 % Ron Doreen Other [facility] Other 11-18-2023 10:00-0500 Systolic blood pressure 149 mm[Hg] Ron Doreen Other [facility] Other 11-04-2023 11:00-0500 Body height 168.91 cm Ron Doreen Other [facility] Other 11-04-2023 11:00-0500 Body mass index (BMI) [Ratio] 30.17 kg/m2 Ron Doreen Other [facility] Other 11-04-2023 11:00-0500 Body temperature 97.6 [degF] Ron Doreen Other [facility] Other 11-04-2023 11:00-0500 Body weight 86.09 kg Ron Doreen Other [facility] Other 11-04-2023 11:00-0500 Diastolic blood pressure 76 mm[Hg] Ron Doreen Other [facility] Other 11-04-2023 11:00-0500 Respiratory rate 18 /min Ron Doreen Other [facility] Other 11-04-2023 11:00-0500 SaO2% (BldA) [Mass fraction] 98 % Ron Doreen Other [facility] Other 11-04-2023 11:00-0500 Systolic blood pressure 153 mm[Hg] Ron Doreen Other [facility] Other 10-15-2023 13:00-0500 Body height 168.91 cm Ron Doreen Other [facility] Other 10-15-2023 13:00-0500 Body mass index (BMI) [Ratio] 29.82 kg/m2 Ron Doreen Other [facility] Other 10-15-2023 13:00-0500 Body temperature 97.5 [degF] Ron Doreen Other [facility] Other 10-15-2023 13:00-0500 Body weight 85.1 kg Ron Doreen Other [facility] Other 10-15-2023 13:00-0500 Diastolic blood pressure 68 mm[Hg] Ron Doreen Other [facility] Other 10-15-2023 13:00-0500 Respiratory rate 18 /min Ron Doreen Other [facility] Other 10-15-2023 13:00-0500 SaO2% (BldA) [Mass fraction] 98 % Ron Doreen Other [facility] Other 10-15-2023 13:00-0500 Systolic blood pressure 113 mm[Hg] Ron Doreen Other [facility] Other 08-27-2023 09:40-0500 Body height 168.91 cm Azduc Mensahs Other [facility] Other 08-27-2023 09:40-0500 Body mass index (BMI) [Ratio] 30.2 kg/m2 Azduc Bakjuniors Other [facility] Other 08-27-2023 09:40-0500 Body temperature 96.7 [degF] Azduc Bakjuniors Other [facility] Other 08-27-2023 09:40-0500 Body weight 86.18 kg Azduc Mensahs Other [facility] Other 08-27-2023 09:40-0500 Diastolic blood pressure 72 mm[Hg] Azduc Mensahs Other [facility] Other 08-27-2023 09:40-0500 Respiratory rate 18 /min Mary Anne Bakjuniors Other [facility] Other 08-27-2023 09:40-0500 SaO2% (BldA) [Mass fraction] 98 % Azduc Bakhous Other [facility] Other 08-27-2023 09:40-0500 Systolic blood pressure 153 mm[Hg] Aziz Bakhous Other [facility] Other 08-15-2023 10:20-0500 Body height 168.91 cm Ron Doreen Other [facility] Other 08-15-2023 10:20-0500 Body mass index (BMI) [Ratio] 30.2 kg/m2 Ron Doreen Other [facility] Other 08-15-2023 10:20-0500 Body temperature 97.1 [degF] Ron Doreen Other [facility] Other 08-15-2023 10:20-0500 Body weight 86.18 kg Ron Doreen Other [facility] Other 08-15-2023 10:20-0500 Diastolic blood pressure 79 mm[Hg] Ron Doreen Other [facility] Other 08-15-2023 10:20-0500 Respiratory rate 18 /min Ron Doreen Other [facility] Other 08-15-2023 10:20-0500 SaO2% (BldA) [Mass fraction] 98 % Ron Doreen Other [facility] Other 08-15-2023 10:20-0500 Systolic blood pressure 164 mm[Hg] Ron Doreen Other [facility] Other 08-13-2023 15:40-0500 Body height 168.91 cm Ron Doreen Other [facility] Other 08-13-2023 15:40-0500 Body mass index (BMI) [Ratio] 30.24 kg/m2 Ron Doreen Other [facility] Other 08-13-2023 15:40-0500 Body temperature 97.2 [degF] Ron Doreen Other [facility] Other 08-13-2023 15:40-0500 Body weight 86.27 kg Ron Doreen Other [facility] Other 08-13-2023 15:40-0500 Diastolic blood pressure 79 mm[Hg] Ron Doreen Other [facility] Other 08-13-2023 15:40-0500 Respiratory rate 18 /min Ron Doreen Other [facility] Other 08-13-2023 15:40-0500 SaO2% (BldA) [Mass fraction] 98 % Ron Doreen Other [facility] Other 08-13-2023 15:40-0500 Systolic blood pressure 186 mm[Hg] Ron Doreen Other [facility] Other 08-01-2023 13:00-0400 Body height 168.91 cm Ron Doreen Other [facility] Other 08-01-2023 13:00-0400 Body mass index (BMI) [Ratio] 30.55 kg/m2 Ron Doreen Other [facility] Other 08-01-2023 13:00-0400 Body temperature 97.8 [degF] Ron Doreen Other [facility] Other 08-01-2023 13:00-0400 Body weight 87.18 kg Ron Doreen Other [facility] Other 08-01-2023 13:00-0400 Diastolic blood pressure 72 mm[Hg] Ron Doreen Other [facility] Other 08-01-2023 13:00-0400 Respiratory rate 18 /min Ron Doreen Other [facility] Other 08-01-2023 13:00-0400 SaO2% (BldA) [Mass fraction] 98 % Ron Doreen Other [facility] Other 08-01-2023 13:00-0400 Systolic blood pressure 160 mm[Hg] Ron Doreen Other [facility] Other 06-24-2023 11:40-0400 Body height 168.91 cm Ron Doreen Other [facility] Other 06-24-2023 11:40-0400 Body mass index (BMI) [Ratio] 29.89 kg/m2 Ron Doreen Other [facility] Other 06-24-2023 11:40-0400 Body temperature 97.3 [degF] Ron Doreen Other [facility] Other 06-24-2023 11:40-0400 Body weight 85.28 kg Ron Doreen Other [facility] Other 06-24-2023 11:40-0400 Diastolic blood pressure 75 mm[Hg] Ron Doreen Other [facility] Other 06-24-2023 11:40-0400 Respiratory rate 18 /min Ron Doreen Other [facility] Other 06-24-2023 11:40-0400 SaO2% (BldA) [Mass fraction] 99 % Ron Doreen Other [facility] Other 06-24-2023 11:40-0400 Systolic blood pressure 129 mm[Hg] Ron Doreen Other [facility] Other 06-06-2023 15:20-0400 Body height 168.91 cm Ron Doreen Other [facility] Other 06-06-2023 15:20-0400 Body mass index (BMI) [Ratio] 29.92 kg/m2 Ron Doreen Other [facility] Other 06-06-2023 15:20-0400 Body temperature 96.5 [degF] Ron Doreen Other [facility] Other 06-06-2023 15:20-0400 Body weight 85.37 kg Ron Doreen Other [facility] Other 06-06-2023 15:20-0400 Diastolic blood pressure 49 mm[Hg] Ron Doreen Other [facility] Other 06-06-2023 15:20-0400 Respiratory rate 18 /min Ron Doreen Other [facility] Other 06-06-2023 15:20-0400 SaO2% (BldA) [Mass fraction] 99 % Ron Doreen Other [facility] Other 06-06-2023 15:20-0400 Systolic blood pressure 128 mm[Hg] Ron Doreen Other [facility] Other 04-30-2023 11:40-0400 Body height 168.91 cm Ron Doreen Other [facility] Other 04-30-2023 11:40-0400 Body mass index (BMI) [Ratio] 30.52 kg/m2 Ron Doreen Other [facility] Other 04-30-2023 11:40-0400 Body temperature 96.9 [degF] Ron Doreen Other [facility] Other 04-30-2023 11:40-0400 Body weight 87.09 kg Ron Doreen Other [facility] Other 04-30-2023 11:40-0400 Diastolic blood pressure 80 mm[Hg] Ron Doreen Other [facility] Other 04-30-2023 11:40-0400 Respiratory rate 18 /min Ron Doreen Other [facility] Other 04-30-2023 11:40-0400 SaO2% (BldA) [Mass fraction] 98 % Ron Doreen Other [facility] Other 04-30-2023 11:40-0400 Systolic blood pressure 150 mm[Hg] Ron Doreen Other [facility] Other 04-06-2023 09:00-0400 Body height 168.91 cm Ron Doreen Other [facility] Other 04-06-2023 09:00-0400 Body mass index (BMI) [Ratio] 30.36 kg/m2 Ron Doreen Other [facility] Other 04-06-2023 09:00-0400 Body weight 86.64 kg Ron Doreen Other [facility] Other 04-06-2023 09:00-0400 Diastolic blood pressure 54 mm[Hg] Ron Doreen Other [facility] Other 04-06-2023 09:00-0400 Respiratory rate 18 /min Ron Doreen Other [facility] Other 04-06-2023 09:00-0400 SaO2% (BldA) [Mass fraction] 98 % Ron Doreen Other [facility] Other 04-06-2023 09:00-0400 Systolic blood pressure 144 mm[Hg] Ron Doreen Other [facility] Other 04-02-2023 14:40-0400 Body height 168.91 cm Ron Doreen Other [facility] Other 04-02-2023 14:40-0400 Body mass index (BMI) [Ratio] 30.55 kg/m2 Ron Doreen Other [facility] Other 04-02-2023 14:40-0400 Body temperature 97 [degF] Ron Doreen Other [facility] Other 04-02-2023 14:40-0400 Body weight 87.18 kg Ron Doreen Other [facility] Other 04-02-2023 14:40-0400 Diastolic blood pressure 76 mm[Hg] Ron Doreen Other [facility] Other 04-02-2023 14:40-0400 Respiratory rate 18 /min Ron Doreen Other [facility] Other 04-02-2023 14:40-0400 SaO2% (BldA) [Mass fraction] 98 % Ron Doreen Other [facility] Other 04-02-2023 14:40-0400 Systolic blood pressure 183 mm[Hg] Ron Doreen Other [facility] Other 03-07-2023 09:20-0400 Body height 168.91 cm Ron Doreen Other [facility] Other 03-07-2023 09:20-0400 Body mass index (BMI) [Ratio] 30.52 kg/m2 Ron Doreen Other [facility] Other 03-07-2023 09:20-0400 Body temperature 97.1 [degF] Ron Doreen Other [facility] Other 03-07-2023 09:20-0400 Body weight 87.09 kg Ron Doreen Other [facility] Other 03-07-2023 09:20-0400 Diastolic blood pressure 72 mm[Hg] Ron Doreen Other [facility] Other 03-07-2023 09:20-0400 Respiratory rate 18 /min Ron Doreen Other [facility] Other 03-07-2023 09:20-0400 SaO2% (BldA) [Mass fraction] 97 % Ron Doreen Other [facility] Other 03-07-2023 09:20-0400 Systolic blood pressure 130 mm[Hg] Ron Doreen Other [facility] Other 12-20-2022 13:20-0400 Body height 168.91 cm Ron Doreen Other [facility] Other 12-20-2022 13:20-0400 Body mass index (BMI) [Ratio] 30.68 kg/m2 Ron Doreen Other [facility] Other 12-20-2022 13:20-0400 Body temperature 97.1 [degF] Ron Doreen Other [facility] Other 12-20-2022 13:20-0400 Body weight 87.54 kg Ron Doreen Other [facility] Other 12-20-2022 13:20-0400 Diastolic blood pressure 72 mm[Hg] Ron Doreen Other [facility] Other 12-20-2022 13:20-0400 Respiratory rate 18 /min Ron Doreen Other [facility] Other 12-20-2022 13:20-0400 SaO2% (BldA) [Mass fraction] 99 % Ron Doreen Other [facility] Other 12-20-2022 13:20-0400 Systolic blood pressure 139 mm[Hg] Ron Doreen Other [facility] Other 11-05-2022 14:00-0500 Body height 168.91 cm Ron Doreen Other [facility] [employer] Other 11-05-2022 14:00-0500 Body mass index (BMI) [Ratio] 30.59 kg/m2 Ron Doreen Other [employer] Other 11-05-2022 14:00-0500 Body temperature 96.8 [degF] Ron Doreen Other [employer] Other 11-05-2022 14:00-0500 Body weight 87.27 kg Ron Doreen Other [employer] Other 11-05-2022 14:00-0500 Diastolic blood pressure 72 mm[Hg] Ron Doreen Other [employer] Other 11-05-2022 14:00-0500 Respiratory rate 18 /min Ron Doreen Other [employer] Other 11-05-2022 14:00-0500 SaO2% (BldA) [Mass fraction] 98 % Ron Doreen Other [employer] Other 11-05-2022 14:00-0500 Systolic blood pressure 157 mm[Hg] Ron Doreen Other [employer] Other 09-27-2022 16:00-0500 Body height 168.91 cm Jana Monson Other [employer] Other 09-27-2022 16:00-0500 Body mass index (BMI) [Ratio] 30.55 kg/m2 Jana Monson Other [employer] Other 09-27-2022 16:00-0500 Body temperature 96.8 [degF] Jana Monson Other [employer] Other 09-27-2022 16:00-0500 Body weight 87.18 kg Jana Monson Other [employer] Other 09-27-2022 16:00-0500 Diastolic blood pressure 73 mm[Hg] Jana Monson Other [employer] Other 09-27-2022 16:00-0500 Respiratory rate 18 /min Jana Monson Other [employer] Other 09-27-2022 16:00-0500 SaO2% (BldA) [Mass fraction] 98 % Jana Monson Other [employer] Other 09-27-2022 16:00-0500 Systolic blood pressure 159 mm[Hg] Jana Monson Other [employer] Other 08-22-2022 12:00-0500 Body height 168.91 cm Ron Doreen Other [employer] Other 08-22-2022 12:00-0500 Body mass index (BMI) [Ratio] 30.65 kg/m2 Ron Doreen Other [employer] Other 08-22-2022 12:00-0500 Body temperature 96.9 [degF] Ron Doreen Other [employer] Other 08-22-2022 12:00-0500 Body weight 87.45 kg Ron Doreen Other [employer] Other 08-22-2022 12:00-0500 Diastolic blood pressure 75 mm[Hg] Ron Doreen Other [employer] Other 08-22-2022 12:00-0500 Respiratory rate 18 /min Ron Doreen Other [employer] Other 08-22-2022 12:00-0500 SaO2% (BldA) [Mass fraction] 96 % Ron Doreen Other [employer] Other 08-22-2022 12:00-0500 Systolic blood pressure 121 mm[Hg] Ron Doreen Other [employer] Other 05-08-2022 10:20-0400 Body height 168.91 cm Ron Doreen Other [employer] Other 05-08-2022 10:20-0400 Body mass index (BMI) [Ratio] 31.54 kg/m2 Ron Doreen Other [employer] Other 05-08-2022 10:20-0400 Body temperature 97.6 [degF] Ron Doreen Other [employer] Other 05-08-2022 10:20-0400 Body weight 89.99 kg Ron Doreen Other [employer] Other 05-08-2022 10:20-0400 Diastolic blood pressure 68 mm[Hg] Ron Doreen Other [employer] Other 05-08-2022 10:20-0400 Respiratory rate 18 /min Ron Doreen Other [employer] Other 05-08-2022 10:20-0400 SaO2% (BldA) [Mass fraction] 98 % Ron Doreen Other [employer] Other 05-08-2022 10:20-0400 Systolic blood pressure 131 mm[Hg] Ron Doreen Other [employer] Other 01-18-2022 10:20-0400 Body height 168.91 cm Ron Doreen Other [employer] Other 01-18-2022 10:20-0400 Body mass index (BMI) [Ratio] 31 kg/m2 Ron Doreen Other [employer] Other 01-18-2022 10:20-0400 Body temperature 96.4 [degF] Ron Doreen Other [employer] Other 01-18-2022 10:20-0400 Body weight 88.45 kg Ron Doreen Other [employer] Other 01-18-2022 10:20-0400 Diastolic blood pressure 74 mm[Hg] Ron Doreen Other [employer] Other 01-18-2022 10:20-0400 Respiratory rate 18 /min Ron Doreen Other [employer] Other 01-18-2022 10:20-0400 SaO2% (BldA) [Mass fraction] 97 % Ron Doreen Other [employer] Other 01-18-2022 10:20-0400 Systolic blood pressure 170 mm[Hg] Ron Doreen Other [employer] Other Encounters Encounter Date Encounter Type Care Provider Facility Start: 12-21-2023 Refill Luis dominique PA-C Work Phone: [facility] Comment on above: Med Refill Start: 11-28-2023 End: 11-28-2023 ambulatory GREG NAVARROSanthosh Not Available Start: 11-18-2023 End: 11-18-2023 ambulatory Ron Doreen Other [employer] Other Start: 11-18-2023 Office outpatient visit 15 minutes Ron Doreen [facility] Start: 11-05-2023 End: 11-05-2023 ambulatory GA H CRESPO Not Available Start: 11-04-2023 (INJECTION) INJECTION Ron Doreen [facility] Start: 11-04-2023 End: 11-04-2023 ambulatory Ron Doreen Other [employer] Other Start: 10-22-2023 End: 10-22-2023 ambulatory GA H CRESPO Not Available Start: 10-15-2023 End: 10-15-2023 ambulatory Ron Doreen Other [employer] Other Start: 10-15-2023 Office outpatient visit 15 minutes Ron Doreen [facility] Start: 10-08-2023 End: 10-08-2023 ambulatory Aziz Bakhous Other [employer] Other Start: 10-08-2023 Telephone encounter Aziz Bakhous [facility] Start: 09-15-2023 End: 09-15-2023 ambulatory Ron Odreen Other [employer] Other Start: 09-15-2023 Telephone encounter Ron Doreen [facility] Start: 09-09-2023 End: 09-09-2023 ambulatory Ron Doreen Other [employer] Other Start: 09-09-2023 Telephone encounter Ron Doreen [facility] Start: 08-27-2023 (INJECTION) INJECTION Aziz Bakhous [facility] Start: 08-27-2023 End: 08-27-2023 ambulatory Aziz Bakhous Other [employer] Other Start: 08-15-2023 (INJECTION) INJECTION Ron Doreen [facility] Start: 08-15-2023 End: 08-15-2023 ambulatory Ron Doreen Other [employer] Other Start: 08-13-2023 (INJECTION) INJECTION Ron Doreen [facility] Start: 08-13-2023 End: 08-13-2023 ambulatory Ron Doreen Other [employer] Other Start: 08-01-2023 End: 08-01-2023 ambulatory Ron Doreen Other [employer] Other Start: 08-01-2023 Office outpatient visit 15 minutes Ron Doreen [facility] Start: 06-24-2023 End: 06-24-2023 ambulatory Ron Doreen Other [employer] Other Start: 06-24-2023 Office outpatient visit 10 minutes Ron Doreen [facility] Start: 06-06-2023 End: 06-06-2023 ambulatory Ron Doreen Other [employer] Other Start: 06-06-2023 Office outpatient visit 15 minutes Ron Doreen [facility] Start: 04-30-2023 End: 04-30-2023 ambulatory Ron Doreen Other [employer] Other Start: 04-30-2023 Office outpatient visit 15 minutes Ron Doreen [facility] Start: 04-06-2023 (INJECTION) INJECTION Ron D[facility]en [facility] Start: 04-06-2023 End: 04-06-2023 ambulatory Ron Doreen Other [employer] Other Start: 04-06-2023 Telephone encounter Ron Doreen [facility] Start: 04-02-2023 End: 04-02-2023 ambulatory Ron Doreen Other [employer] Other Start: 04-02-2023 Office outpatient visit 15 minutes Ron Doreen [facility] Start: 04-02-2023 Telephone encounter Ron Doreen [facility] Start: 03-07-2023 End: 03-07-2023 ambulatory Ron Doreen Other [employer] Other Start: 03-07-2023 Office outpatient visit 15 minutes Ron Doreen [facility] Start: 01-22-2023 End: 01-23-2023 ambulatory RON DOREEN Facility:[facility] Start: 12-20-2022 End: 12-20-2022 ambulatory Ron Doreen Other [employer] Other Start: 12-20-2022 Office outpatient visit 15 minutes Ron Doreen [facility] Start: 12-17-2022 End: 12-18-[address] DHRUV RUBI . Facility:[facility] Start: 12-10-2022 End: 12-11-2022 ambulatory RON DOREEN Facility:[facility] Start: 11-20-2022 End: 11-21-[address] BENI APARICIO Facility:[facility] Start: 11-05-2022 End: 11-05-2022 ambulatory Ron Doreen Other [employer] Other Start: 11-05-2022 Office outpatient visit 15 minutes Ron Doreen [facility] Start: 10-29-2022 End: 10-30-[address] JANA MONSON Facility:[facility] Start: 10-24-2022 End: 10-24-[address] LILLIAN ACOSTA . Facility:[facility] Start: 10-24-2022 End: 10-25-[address] DHRUV RUBI . Facility:[facility] Start: 09-27-2022 End: 09-27-2022 ambulatory Jana Monson Other [employer] Other Start: 09-27-2022 Office outpatient visit 15 minutes Jana Monson [facility] Start: 09-18-2022 End: 09-19-2022 ambulatory RON DOREEN Facility:[facility] Start: 09-11-2022 End: 09-11-[address] DHRUV RUBI . Facility:[facility] Start: 08-22-2022 End: 08-22-2022 ambulatory Ron Doreen Other [employer] Other Start: 08-22-2022 Office outpatient visit 15 minutes Ron Doreen [facility] Start: 08-13-2022 End: 08-14-2022 ambulatory RON DOREEN Facility:[facility] Start: 06-25-2022 End: 06-26-[address] DHRUV RUBI . Facility:[facility] Start: 06-18-2022 End: 06-18-[address] DHRUV RUBI . Facility:[facility] Start: 06-01-2022 End: 06-02-[address] YANET HUERTA Facility:[facility] Start: 05-28-2022 End: 05-28-2022 ambulatory Ron Doreen Other [employer] Other Start: 05-28-2022 Telephone encounter Ron Doreen [facility] Start: 05-21-2022 End: 05-22-[address] DHRUV RUBI . Facility:[facility] Start: 05-16-2022 End: 05-16-2022 ambulatory Ron Doreen Other [employer] Other Start: 05-16-2022 Telephone encounter Ron Doreen [facility] Start: 05-10-2022 End: 05-10-2022 ambulatory Ron Doreen Other [employer] Other Start: 05-10-2022 Telephone encounter Ron Doreen [facility] Start: 05-08-2022 End: 05-08-2022 ambulatory Ron Doreen Other [employer] Other Start: 05-08-2022 Office outpatient visit 25 minutes Ron Doreen [facility] Start: 05-02-2022 End: 05-03-2022 ambulatory RON DOREEN Facility:[facility] Start: 04-24-2022 End: 04-24-2022 ambulatory Aziz Bakhous Other [employer] Other Start: 04-24-2022 Telephone encounter Aziz Bakhous [facility] Start: 01-18-2022 End: 01-18-2022 ambulatory Ron Doreen Other [employer] Other Start: 01-18-2022 Office outpatient visit 25 minutes Ron Doreen [facility] Start: 05-21-2017 End: 05-22-2017 Ambulatory DEFAULT PHYSICIAN Facility:[facility] Procedures Date Procedure Procedure Detail Performing Clinician [...] 03-19-2024 Adult BMI Screening Adult BMI Screening [facility] Start: 03-19-2024 Tobacco Screening Tobacco Screening [facility] Start: 06-07-2023 COVID-19 Vaccine ( season) COVID-19 Vaccine ( season) [facility] Start: 06-07-2023 Influenza vaccination Influenza Vaccine [facility] Start: 12-28-2021 Depression Screening Depression Screening [facility] Start: 2009 Fall Risk Screening Fall Risk Screening [facility] Start: 1994 Administration of varicella zoster vaccine Zoster (Shingles) Vaccine (1 of 2) [facility] Start: 12-15-1963 DTaP,Tdap and Td Vaccines (1 - Tdap) DTaP,Tdap and Td Vaccines (1 - Tdap) [facility] Start: 1962 Adult BMI Follow Up Plan Adult BMI Follow Up Plan [facility] Start: 1945 Medicare Annual Wellness Visit Medicare Annual Wellness Visit [facility] Immunizations Immunization Date Immunization Notes Care Provider Fa cili 07-18-2020 Seasonal trivalent influenza vaccine, adjuvanted, preservative free Luis Quiles PA-C Work Phone: [facility] 07-18-2020 influenza virus vacc ine, unspecified formulation Luis Quiles PA-C Work Phone: [facility] 07-22-2019 Seasonal trivalent influenza vaccine, adjuvanted, preservative free Luis Quiles PA-C Work Phone: [facility] 07-14-2018 Seasonal trivalent influenza vaccine, adjuvanted, preservative free Luis Quiles PA-C Work Phone: [facility] 07-15-2017 pneumococcal conjuga te vaccine, 13 valent Luis Kb PA-C Work Phone: [facility] 07-08-2017 influenza, high dose seasonal, preservative-free Luis Kb PA-C Work Phone: [facility] 07-25-2016 influenza, high dose seasonal, preservative-free Luis Kb PA-C Work Phone: [facility] 07-11-2015 influenza, high dose seasonal, preservative-free Luis Kb PA-C Work Phone: [facility] 07-16-2014 influenza, seasonal, injectable Luis Kb PA-C Work Phone: [facility] 07-10-2013 influenza, seasonal, injectable Luis Kb PA-C Work Phone: [facility] 08-08-2012 influenza virus vacc ine, unspecified formulation Luis Kb PA-C Work Phone: [facility] 08-08-2012 pneumococcal polysaccharide vaccine, 23 valent Luis Kb PA-C Work Phone: [facility] 07-11-2011 influenza virus vacc ine, unspecified formulation Luis Kb PA-C Work Phone: [facility] 08-15-2010 influenza virus vacc ine, unspecified formulation Luis Kb PA-C Work Phone: [facility] 07-26-2009 influenza virus vacc ine, unspecified formulation Luis Kb PA-C Work Phone: [facility] 08-04-2008 influenza virus vacc ine, unspecified formulation Luis Kb PA-C Work Phone: [facility] 08-13-2007 influenza virus vacc ine, unspecified formulation Luis Kb PA-C Work Phone: [facility] 08-11-2004 influenza virus vacc ine, unspecified formulation Luis Kb PA-C Work Phone: [facility] 08-09-2003 influenza virus vacc ine, unspecified formulation Luis Kb PA-C Work Phone: [employer] 08-09-2003 pneumococcal polysaccharide vaccine, 23 valent Luis Quiles PA-C Work Phone: [employer] Payers Date Payer Category Payer Medicare [employer] MEDICARE A ETNA MEDICARE PLAN (HMO) [id number] 2021-Present [phone] [address] [place] [address] [id number] 1960 Medicare [id number] 1945 Unknown [id number] 1945 Unknown [id number] [id number]3 1944 Unknown [id number] 2.16.840.1.995981.3.579.2.593 1944 Unknown [id number] 2.16.840.1.470321.3.579.2.593 1944 Unknown [id number] 2.16.840.1.906119.3.579.2.593 1944 Unknown [id number] 2.16.840.1.931899.3.579.2.593 1944 Unknown [id number] 2.16.840.1.163594.3.579.2.593 1944 Unknown [id number] 2.16.840.1.052259.3.579.2.593 1944 Unknown [id number] 2.16.840.1.774736.3.579.2.593 1944 Unknown [id number] 2.16.840.1.689283.3.579.2.593 1944 Unknown [id number] 2.16.840.1.588711.3.579.2.593 1944 Unknown [id number] 2.16.840.1.458981.3.579.2.593 1944 Unknown [id number] 2.16.840.1.363220.3.579.2.593 1944 Unknown [id number] 2.16.840.1.668510.3.579.2.593 1944 Unknown [id number] 2.16.840.1.885007.3.579.2.593 1944 Unknown [id number] 2.16.840.1.696035.3.579.2.593 1944 Unknown [id number] 2.16.840.1.377559.3.579.2.1259 1944 Unknown [id number] 2.16.840.1.698790.3.579.2.1259 1944 Unknown [id number] [id number] Unknown Social History Date Type Detail Facility Unknown if ever smoked [facility] Other Start: 12-28-2020 End: 03-19-2023 Sex Assigned At [facility] [facility] Other Start: 09-20-2022 Tobacco smoking status MIIS Ex-smoker [facility] End: 10-07-1969 History of tobacco use Current smoker [facility] End: 10-07-1969 History of tobacco use Cigarette Smoker [facility] Start: 09-20-2022 Tobacco use and exposure Smokeless tobacco non-user [facility] Start: 03-19-2023 Alcohol intake Ex-drinker (finding) [facility] Start: 12-28-2020 End: 03-19-2023 History of Social function [facility] Do you belong to any clubs or organizations such as mosque groups, unions, fraternal or athletic groups, or school groups? No [facility] [employer] Are you now , , , , never or living with a partner? [facility] How hard is it for y ou to pay for the very basics like food, housing, medical care, and heating Not hard at all [facility] Do you feel stress - tense, restless, nervous, or anxious, or unable to sleep at night because your mind is troubled all the time - these days [OSQ] Not at all [facility] [employer] Start: 1945 Sex Assigned At Not on file [employer] Goals Date Patient Goal Desired [...] potassium improved with dietary restriction and Lasix. [facility] Other 01-29-2024 Evaluation note* Encounter Date Diagnosis Assessment Notes Treatment Notes Treatment Clinical Notes Oct, Anemia of renal disease (ICD-10 - D63.1) Oct, CKD (chronic kidney disease) stage 4, GFR 15-29 ml/min (ICD-10 - N18.4) [facility] Other 01-09-2024 Evaluation note* Encounter Date Diagnosis [...] potassium improved with dietary restriction and Lasix. [facility] Other 12-04-2023 Evaluation note* Encounter Date Diagnosis [...] 4, GFR 15-29 ml/min (ICD-10 - N18.4) [facility] [facility] Other 11-21-2023 Evaluation note* Encounter Date Diagnosis Assessment Notes Treatment Notes Treatment Clinical Notes Aug, Anemia of renal disease (ICD-10 - D63.1) Aug, CKD (chronic kidney disease) stage 4, GFR 15-29 ml/min (ICD-10 - N18.4) [facility] Other 11-09-2023 Evaluation note* Encounter Date Diagnosis [...] of kidney mass hydronephrosis or kidney stones. [facility] Other 10-26-2023 Evaluation note* Encounter Date Diagnosis [...] potassium improved with dietary restriction and Lasix. [facility] Other 09-18-2023 Evaluation note* Encounter Date Diagnosis [...] potassium improved with dietary restriction and Lasix. [facility] Other 08-31-2023 Evaluation note* Encounter Date Diagnosis [...] potassium improved with dietary restriction and Lasix. [facility] Other 07-25-2023 Evaluation note* Encounter Date Diagnosis [...] to normal with dietary restriction and Lasix. [facility] Other 07-01-2023 Evaluation note* Encounter Date Diagnosis Assessment Notes Treatment Notes Treatment Clinical Notes Apr, CKD (chronic kidney disease) stage 4, GFR 15-29 ml/min (ICD-10 - N18.4) Apr, Anemia of renal disease (ICD-10 - D63.1) [facility] Other 06-27-2023 Evaluation note* Encounter Date Diagnosis [...] to normal with dietary restriction and Lasix. [facility] Other 06-01-2023 Evaluation note* Encounter Date Diagnosis [...] potassium diet and provide information about it. [facility] Other 03-16-2023 Evaluation note* Encounter Date Diagnosis [...] to Continue Vit D 5000 units daily [facility] Other 01-30-2023 Evaluation note* Encounter Date Diagnosis [...] to Continue Vit D 5000 units daily [facility] Other 12-22-2022 Evaluation note* Encounter Date Diagnosis [...] to Continue Vit D 5000 units daily [facility] Other 11-16-2022 Evaluation note* Encounter Date Diagnosis [...] to Continue Vit D 5000 units daily [facility] Other 08-04-2022 Evaluation note* Encounter Date Diagnosis Assessment Notes Treatment Notes Treatment Clinical Notes May, Hypertensive chronic kidney disease with stage 1 through stage 4 chronic kidney disease, or unspecified chronic kidney disease (ICD-10 - I12.9) [facility] Other 08-02-2022 Evaluation note* Encounter Date Diagnosis [...] to Continue Vit D 5000 units daily [facility] Other 07-19-2022 Evaluation note* Encounter Date Diagnosis Assessment Notes Treatment Notes Treatment Clinical Notes Apr, Hypertensive chronic kidney disease with stage 1 through stage 4 chronic kidney disease, or unspecified chronic kidney disease (ICD-10 - I12.9) [facility] Other 04-14-2022 Evaluation note* Encounter Date Diagnosis [...] to take Vit D 1000 units daily [place] [employer] Other Evaluation noteNo InformationNort [employer] Other Evaluation note* Diagnosis 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 Hypertensive urgency Shortness of breath Paroxysmal atrial fibrillation (CMS-HCC) Atrial fibrillation Localized edema Edema documented in this encounter [facility] general Narrative - Reported* Type [...] History SEE ABOVE Hospitalization History COVID 09/2020 [facility] Other Hisgjov general Narrative - Reported* Type Description Date [...] History SEE ABOVE Hospitalization History COVID 09/2020 [facility] Other history general Narrative - Reported* Type [...] History SEE ABOVE Hospitalization History COVID 09/2020 [facility] - [facility] Hisqtoe general Narrative - Reported* Type Description Date [...] NOSE 10/2019 Surgical History QUAD BYPASS AT [facility] 01/01/2021 Hospitalization History ELEVATED BLOOD PRESSURE Hospitalization History SEE ABOVE Hospitalization History COVID 09/2020 [facility] [employer] Other InstructionsNot on filedocumented in this encounter [facility] Summary Purpose Family History No Family History Records FoundNo Family History Records FoundNo Family History Records Found Advance Directives Latest Code Status on File Code Status Date Activated Date Inactivated Comments Full Code 12/28/2020 2:33 PM 01/03/2021 7:38 PM Additional Source Comments INFORMATION SOURCE (unrecogn ized section and content) DATE CREATED AUTHOR 04/02/2018 [facility] DATE CREATED AUTHOR AUTHOR'S ORGANIZ ATION 01/27/2023 [facility] DATE CREATED AUTHOR AUTHOR'S ORGANIZ ATION 12/06/2023 [facility] EPIC REASON FOR VISIT (unrecogniz ed section and content) Reason Comments Med Refill Care Teams (unrecognized sec tion and content) [place] Pruner Relationship Specialty Start Date End Date Dhruv Rubi MD [address] [place] [address] PCP - General Family Medicine 10/20/20 FOR [...] BE BASED ON THE PRIMARY CLINICAL RECORDS. [facility] [employer] [facility]. provides no warranty or guarantee of the accuracy or completeness of information in this document.
[2023-12-31 00:24] LABS: C Reactive Protein <0.50 mg/dL (<=0.50)
[2023-12-31] MEDS: 0.9 % SODIUM CHLORIDE 1,000 ML 75 ML IV (01:13)
[2023-12-31 01:23] LABS: Glucometer 145 mg/dL (74-106)
[2023-12-31] MEDS: ACETAMINOPHEN 325 MG TABLET 650 MG PO (01:26)
[2023-12-31] MEDS: HYDRALAZINE HCL 20 MG/ML VIAL 10 MG IVP ×5 (01:34→23:38)
[2023-12-31] MEDS: ENOXAPARIN SODIUM 30 MG/0.3 ML SYRINGE SUBQ (01:34)
[2023-12-31 05:25] LABS: Basophils Percent Auto 0.4 % (0.2-2.0); Eosinophils Absolute Auto 0.2 10^3/uL (0.0-0.7); Eosinophils Percent Auto 2.6 % (0.9-7.0); Hematocrit 30.3 % (36.0-48.0); Hemoglobin 9.6 g/dL (12.0-16.0); Immature Granulocytes Abs Auto 0.02 10^3/uL (0.00-0.03); Immature Granulocytes Pct Auto 0.3 % (0.0-0.5); Lymphocytes Absolute Auto 2.4 10^3/uL (1.2-3.8); Lymphocytes Percent Auto 31.3 % (20.5-60.0); Mean Corpuscular HGB Conc 31.7 g/dL (29.9-35.2); Mean Corpuscular Hemoglobin 30.4 pg (26.7-34.0); Mean Corpuscular Volume 95.9 fL (81.0-99.0); Mean Platelet Volume 10.2 fL (9.5-13.5); Monocytes Absolute Auto 0.9 10^3/uL (0.3-0.8); Monocytes Percent Auto 11.3 % (1.7-12.0); Neutrophils Absolute Auto 4.2 10^3/uL (1.4-6.5); Neutrophils Percent Auto 54.1 % (43.0-75.0); Platelet Count 160 10^3/uL (150-450); Red Blood Count 3.16 10^6/uL (4.20-5.40); Red Cell Distribution Width 15.5 % (11.0-15.0); White Blood Count 7.8 10^3/uL (4.0-11.0)
[2023-12-31] MEDS: LEVOTHYROXINE SODIUM 125 MCG TABLET PO (05:45)
--- NOTE | 2023-12-31 06:00 | ECG_ITS ---
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
[2023-12-31 06:15] LABS: Alanine Aminotransferase 35 U/L (14-59); Albumin Globulin Ratio 1.1; Albumin Level 3.4 g/dL (3.4-5.0); Alkaline Phosphatase 77 U/L (46-116); Anion Gap 16.2; Aspartate Amino Transferase 23 U/L (15-37); BUN Creatinine Ratio 21.8; Bilirubin Total 0.5 mg/dL (0.2-1.0); Calcium 8.8 mg/dL (8.5-10.1); Carbon Dioxide 19.1 mmol/L (21.0-32.0); Chloride 106 mmol/L (98-107); Estimated GFR (African America 24 (>=60); Estimated GFR (Non-African Ame 20 (>=60); Globulin 3.2 g/dL; Glucose 166 mg/dL (74-106); Potassium 4.3 mmol/L (3.5-5.1); Sodium 137 mmol/L (136-145); Total Protein 6.6 g/dL (6.4-8.2); Troponin I High Sensitivity 14.5 pg/mL (4.0-51.3)
[2023-12-31 07:02] LABS: Free T3 2.51 pg/mL (2.18-3.98); Magnesium 1.9 mg/dL (1.8-2.4); Thyroid Stimulating Hormone 0.299 uIU/mL (0.358-3.740)
[2023-12-31 07:35] LABS: Bilirubin Urine NEGATIVE (NEGATIVE); Blood Urine NEGATIVE (NEGATIVE); Clarity Urine CLEAR (CLEAR); Color Urine LT. YELLOW (YELLOW); Glucose Urine UA NEGATIVE (NEGATIVE); Ketones Urine NEGATIVE (NEGATIVE); Leukocyte Esterase Urine LARGE (NEGATIVE); Nitrite Urine POSITIVE (NEGATIVE); Protein Urine TRACE mg/dL (NEG/TRACE); Specific Gravity Urine 1.015 (1.005-1.025); Urobilinogen Urine 0.2 EU/dL (0.2-1.0); pH Urine 5.5 (5.0-9.0)
[2023-12-31 07:49] LABS: Glucometer 198 mg/dL (74-106)
[2023-12-31 07:52] LABS: Bacteria Urine MODERATE #/HPF (NONE SEEN); WBC Urine 75-100 #/HPF (NONE SEEN)
[2023-12-31 07:53] LABS: Cast Seen? NONE SEEN #/LPF (NONE SEEN); Crystals Seen? None Seen #/HPF (None Seen); Mucus Urine TRACE (NONE SEEN); Squamous Epithelial Cell Urine MODERATE #/LPF (NONE/RARE); Urine Culture Indicated ALREADY ORDERED
[2023-12-31] MEDS: CLONIDINE HCL 0.1 MG TABLET 0.100000000000000006 MG PO ×2 (08:32→21:07)
[2023-12-31] MEDS: OMEPRAZOLE 40 MG CAPSULE.DR PO ×2 (08:32→21:06)
[2023-12-31] MEDS: CARVEDILOL 25 MG TABLET PO ×2 (08:33→21:07)
[2023-12-31] MEDS: INSULIN ASPART 300 UNIT/3 ML PEN SUBQ ×4 (08:33→21:09)
--- NOTE | 2023-12-31 08:50 | CM.NOTE ---
Medicare Outpatient Observation Notice discussed with pt, pt verbalizes understanding and signs paper. Original given to pt and copy placed on pt's chart.
--- NOTE | 2023-12-31 08:52 | P.HP_ITS ---
HPI H&P: HPI History of Present Illness Chief complaint: Chest and Neck Pain Narrative: Patient presented to the emergency room last evening with elevated blood pressure. Unable to improve at home. She had a little bit of chest pain. That has essentially resolved currently. Patient was admitted to the intensive care unit with hypertensive urgency. Blood pressure still significantly elevated and was 292/118. That is improved this morning. When I saw patient in the intensive care unit she was resting comfortably and felt back to her normal self Opioid HPI Opioid Management Most Recent Opioid Data: Last Pain Assessment 12/31/23 07:45 Last ED Pain Assessment 03/17/23 18:11 Last MAR Pain Assessment 12/31/23 03:28 Last ORT Total Score 0 12/31/23 00:41 Last ORT Risk Category Low Risk 12/31/23 00:41 PFS PFS Medical History (Updated 12/31/23 @ 02:46 by Seema Hung RN) Raynaud disease ?I73.00 - Raynaud's syndrome without gangrene (ICD-10) Basal cell carcinoma of skin of nose ?C44.311 - Basal cell carcinoma of skin of nose (ICD-10) Elevated cholesterol ?E78.00 - Pure hypercholesterolemia, unspecified (ICD-10) Chronic kidney disease ?N18.9 - Chronic kidney disease, unspecified (ICD-10) HTN (hypertension) ?I10 - Essential (primary) hypertension (ICD-10) Diabetes ?E11.9 - Type 2 diabetes mellitus without complications (ICD-10) CAD (coronary artery disease) ?I25.10 - Atherosclerotic heart disease of [place] coronary artery without angina pectoris (ICD-10) Surgical History (Updated 12/31/23 @ 02:52 by Seema Hung RN) S/P CABG x 1 ?Z95.1 - Presence of aortocoronary bypass graft (ICD-10) H/O shoulder surgery ?Z98.890 - Other specified postprocedural states (ICD-10) History of cholecystectomy ?Z90.49 - Acquired absence of other specified parts of digestive tract (ICD- 10) History of hysterectomy ?Z90.710 - Acquired absence of both cervix and uterus (ICD-10) Family History (Updated 12/31/23 @ 02:55 by Seema Hung RN) Sister Family history of myocardial infarction Family history of hypertension Brother Family history of myocardial infarction Family history of diabetes mellitus Brother Family history of hypertension Father Family history of cancer Social History Smoking status: Former smoker Highest level of school completed/degree received: 12th grade, no diploma Meds Home Medications and Allergies Home Medications ?Medication ?Instructions ?Recorded ?Confirmed ?Type allopurinol 300 mg tablet 300 mg PO DAILY 03/17/23 12/31/23 History atorvastatin 80 mg tablet 80 mg PO .QHS 03/17/23 12/31/23 History carvedilol 25 mg tablet 25 mg PO TIDWM 03/17/23 12/31/23 History furosemide 20 mg tablet 20 mg PO DAILY 03/17/23 12/31/23 History insulin aspart U-100 100 unit/mL 12 unit subcut DAILY 03/17/23 12/31/23 History (3 mL) subcutaneous pen (Novolog FlexPen U-100 Insulin aspart) levothyroxine 125 mcg tablet 125 mcg PO DAILY 03/17/23 12/31/23 History liothyronine 5 mcg tablet 10 mcg PO .QD 03/17/23 12/31/23 History magnesium oxide 400 mg (241.3 mg 400 mg PO TID 03/17/23 12/31/23 History magnesium) tablet pantoprazole 40 mg tablet,delayed 40 mg PO .QD 03/17/23 12/31/23 History release ferrous sulfate 325 mg (65 mg 325 mg PO BID 12/31/23 12/31/23 History iron) tablet lisinopril 20 mg tablet 20 mg PO .once a day 12/31/23 12/31/23 History meloxicam 15 mg tablet 15 mg PO .QD 12/31/23 12/31/23 History Allergies Allergy/AdvReac Type Severity Reaction Status Date / Time amoxicillin [From Augmentin] Allergy Rash Verified 12/30/23 20:03 clavulanic acid Allergy Rash Verified 12/30/23 20:03 [From Augmentin] sulfamethoxazole Allergy Rash Verified 12/30/23 20:03 [From Bactrim] trimethoprim [From Bactrim] Allergy Rash Verified 12/30/23 20:03 NORVASC Allergy Unknown Uncoded 12/30/23 20:03 CT dye Allergy Unconscious Uncoded 12/30/23 20:03 Exam Constitutional Vital Signs, click to edit/add: Last Vital Signs Temp 98 F 12/31/23 06:00 Pulse 78 12/31/23 07:00 Resp 18 12/31/23 07:46 BP 146/48 H 12/31/23 06:00 Pulse Ox 97 12/31/23 06:00 O2 Del Method Room Air 12/31/23 06:00 Documenting provider has reviewed patient's vital signs: yes Common normals: no apparent distress Chest Common normals: inspection of chest normal Respiratory Common normals: normal respiratory effort and no retractions Cardio Common normals: regular rate and regular rhythm Heart sounds: murmur systolic GI Common normals: Normal to inspection, nondistended, normoactive bowel sounds present Extremity Common normals: normal to inspection, full ROM and no clubbing, cyanosis or edema Results Labs Labs: Short CBC 12/30/23 12/31/23 Range/Units 20:30 04:07 WBC 6.3 7.8 (4.0-11.0) 10^3/uL Hgb 10.4 L 9.6 L (12.0-16.0) g/dL Hct 31.6 L 30.3 L (36.0-48.0) % Plt Count 187 160 (150-450) 10^3/uL BMP 12/30/23 12/31/23 20:30 04:07 Sodium 138 137 Potassium 4.1 4.3 Chloride 105 106 Carbon Dioxide 22.3 19.1 L BUN 47.0 H 52.0 H Creatinine 2.36 H 2.38 H Glucose 117 H 166 H Calcium 8.9 8.8 Liver Function 12/30/23 12/31/23 Range/Units 20:30 04:07 Total Bilirubin 0.4 0.5 (0.2-1.0) mg/dL AST 22 23 (15-37) U/L ALT 41 35 (14-59) U/L Alkaline Phosphatase 88 77 (46-116) U/L Albumin 3.6 3.4 (3.4-5.0) g/dL Urine 12/31/23 Range/Units 07:30 Urine Color Lt. yellow (YELLOW) Urine Clarity Clear (CLEAR) Urine pH 5.5 (5.0-9.0) Ur Specific [place] 1.015 (1.005-1.025) Urine Protein Trace (NEG/TRACE) mg/dL Urine Glucose (UA) Negative (NEGATIVE) mg/dL Assessment and Plan Assessment and Plan (1) Chest pain: (2) Hypertensive urgency: Plan Patient with chest pain related to hypertensive urgency with blood pressure 292/118-that is improved. Her chest pain is resolved. Troponins are negative. Blood pressure medications will be adjusted. Adding Norvasc. Will hold off on diuretics. Acute kidney injury with a baseline creatinine of 1.65-on admission was 2.36-at the 143% above baseline. Hold off on diuretics. Will continue to monitor as an outpatient. Acute UTI-start IV antibiotics. Discharged home on oral antibiotics Iron deficiency anemia and anemia of chronic kidney disease stage III-monitor daily Hypothyroidism-levels are stable-not contributing to her hypertensive urgency Hypomagnesemia-continue with supplementation levels are normal IDDM-insulin sliding scale and use home insulin as well. With blood pressure improved significantly. Will have patient ambulate. Greater than 50% chance she will be discharged to home after lunch today. Main quentinn observation status
--- NOTE | 2023-12-31 08:52 | P.DS_ITS ---
DS: Providers Provider Date of admission: 12/31/23 00:15 Primary care physician: Merrick Rubi MD Consults: 12/31/23 06:20 Consult to Pharmacy Routine Consulting Provider: Reason for consultation: can you let me know when meds are verified - tiger me please DS: Diagnosis Discharge Diagnosis (1) Chest pain: Assessment and plan: Patient with chest pain related to hypertensive urgency with blood pressure 292/118-that is improved. Her chest pain is resolved. Troponins are negative. Blood pressure medications will be adjusted. Adding Norvasc. Will hold off on diuretics. Acute kidney injury with a baseline creatinine of 1.65-on admission was 2.36-at the 143% above baseline. Hold off on diuretics. Will continue to monitor as an outpatient. Acute UTI-start IV antibiotics. Discharged home on oral antibiotics Iron deficiency anemia and anemia of chronic kidney disease stage III-monitor daily Hypothyroidism-levels are stable-not contributing to her hypertensive urgency Hypomagnesemia-continue with supplementation levels are normal IDDM-insulin sliding scale and use home insulin as well. DS: Summary Time Spent with Patient Time attestation: Total time spent providing and/or coordinating discharge services: Exam Constitutional Vital Signs, click to edit/add: Last Vital Signs Temp 98 F 12/31/23 06:00 Pulse 78 12/31/23 07:00 Resp 18 12/31/23 07:46 BP 146/48 H 12/31/23 06:00 Pulse Ox 97 12/31/23 06:00 O2 Del Method Room Air 12/31/23 06:00 DS: Data Data Completed and Pending Labs on day of discharge: Labs from last 24 hours 12/31/23 12/31/23 12/31/23 07:48 07:30 04:07 WBC 7.8 RBC 3.16 L Hgb 9.6 L Hct 30.3 L MCV 95.9 MCH 30.4 MCHC 31.7 RDW 15.5 H Plt Count 160 MPV 10.2 Neut % (Auto) 54.1 Lymph % (Auto) 31.3 [place] % (Auto) 11.3 Eos % (Auto) 2.6 Baso % (Auto) 0.4 Neut # (Auto) 4.2 Lymph # (Auto) 2.4 [place] # (Auto) 0.9 H Eos # (Auto) 0.2 Baso # (Auto) 0.0 Abs Immat Gran (auto) 0.02 Imm/Tot Granulo (auto) 0.3 PT INR APTT Sodium 137 Potassium 4.3 Chloride 106 Carbon Dioxide 19.1 L Anion Gap 16.2 BUN 52.0 H Creatinine 2.38 H Est GFR ( Amer) 24 L Est GFR (Non-Af Amer) 20 L BUN/Creatinine Ratio 21.8 Glucose 166 H Calcium 8.8 Magnesium 1.9 Total Bilirubin 0.5 AST 23 ALT 35 Alkaline Phosphatase 77 Troponin I High Sens 14.5 C-Reactive Protein NT-Pro-B Natriuret Pep 593.0 Total Protein 6.6 Albumin 3.4 Globulin 3.2 Albumin/Globulin Ratio 1.1 TSH 0.299 L Thyroxine (T4) 7.40 Free T3 2.51 Urine Color Lt. yellow Urine Clarity Clear Urine pH 5.5 Ur Specific [place] 1.015 Urine Protein Trace Urine Glucose (UA) Negative Urine Ketones Negative Urine Occult Blood Negative Urine Nitrite Positive A Urine Bilirubin Negative Urine Urobilinogen 0.2 Ur Leukocyte Esterase Large A Urine RBC 5-10 A Urine WBC 75-100 A Ur Squamous Epith Cells Moderate A Urine Crystals None seen Urine Bacteria Moderate A Urine Casts None seen Urine Mucus Trace A Ur Culture Indicated? Already ordered POC Glucose 198 H 12/31/23 12/30/23 12/30/23 01:12 22:58 20:30 WBC 6.3 RBC 3.36 L Hgb 10.4 L Hct 31.6 L MCV 94.0 MCH 31.0 MCHC 32.9 RDW 15.5 H Plt Count 187 MPV 9.4 L Neut % (Auto) 45.6 Lymph % (Auto) 40.0 [place] % (Auto) 10.9 Eos % (Auto) 2.7 Baso % (Auto) 0.6 Neut # (Auto) 2.9 Lymph # (Auto) 2.5 [place] # (Auto) 0.7 Eos # (Auto) 0.2 Baso # (Auto) 0.0 Abs Immat Gran (auto) 0.01 Imm/Tot Granulo (auto) 0.2 PT 10.7 INR 1.01 APTT 24.2 Sodium 138 Potassium 4.1 Chloride 105 Carbon Dioxide 22.3 Anion Gap 14.8 BUN 47.0 H Creatinine 2.36 H Est GFR ( Amer) 24 L Est GFR (Non-Af Amer) 20 L BUN/Creatinine Ratio 19.9 Glucose 117 H Calcium 8.9 Magnesium Total Bilirubin 0.4 AST 22 ALT 41 Alkaline Phosphatase 88 Troponin I High Sens 14.0 11.6 C-Reactive Protein <0.50 NT-Pro-B Natriuret Pep 576.0 Total Protein 7.3 Albumin 3.6 Globulin 3.7 Albumin/Globulin Ratio 1.0 TSH Thyroxine (T4) Free T3 Urine Color Urine Clarity Urine pH Ur Specific [place] Urine Protein Urine Glucose (UA) Urine Ketones Urine Occult Blood Urine Nitrite Urine Bilirubin Urine Urobilinogen Ur Leukocyte Esterase Urine RBC Urine WBC Ur Squamous Epith Cells Urine Crystals Urine Bacteria Urine Casts Urine Mucus Ur Culture Indicated? POC Glucose 145 H Discharge Plan Discharge Condition: Fair Discharge Medications: No Action allopurinol 300 mg tablet 300 mg PO DAILY atorvastatin 80 mg tablet 80 mg PO .QHS carvedilol 25 mg tablet 25 mg PO TIDWM furosemide 20 mg tablet 20 mg PO DAILY insulin aspart U-100 [Novolog FlexPen U-100 Insulin] 100 unit/mL (3 mL) insulin pen 12 unit SUBCUT DAILY Rx Instructions: 12 units am, 16units at lunch and 22 units in pm levothyroxine 125 mcg tablet 125 mcg PO DAILY liothyronine 5 mcg tablet 10 mcg PO .QD magnesium oxide 400 mg (241.3 mg magnesium) tablet 400 mg PO TID pantoprazole 40 mg tablet,delayed release (DR/EC) 40 mg PO .QD lisinopril 20 mg tablet 20 mg PO .once a day meloxicam 15 mg tablet 15 mg PO .QD ferrous sulfate 325 mg (65 mg iron) tablet 325 mg PO BID Print Language: Occitan
[2023-12-31] MEDS: LIOTHYRONINE SODIUM 5 MCG TABLET 10 MCG PO (09:34)
[2023-12-31] MEDS: INSULIN DETEMIR 300 UNIT/3 ML INSULN.PEN 30 UNIT SUBQ ×2 (09:34→21:10)
[2023-12-31] MEDS: FERROUS SULFATE 325 MG TABLET PO ×2 (09:35→21:07)
[2023-12-31] MEDS: LISINOPRIL 20 MG TABLET PO (09:35)
[2023-12-31] MEDS: LEVOFLOXACIN IN DEXTROSE 5 % 750 MG/150 ML IV.SOLN 100 MG IV (09:42)
[2023-12-31 11:15] LABS: Glucometer 243 mg/dL (74-106)
[2023-12-31] MEDS: MAGNESIUM OXIDE 400 MG TABLET PO ×2 (13:11→21:07)
[2023-12-31 16:11] LABS: Glucometer 215 mg/dL (74-106)
[2023-12-31] MEDS: ATORVASTATIN CALCIUM 40 MG TABLET 80 MG PO (21:07)
[2023-12-31 21:08] LABS: Glucometer 233 mg/dL (74-106)
[2024-01-01] VITALS (12 sets, daily range): BP systolic 91–207; BP diastolic 42–76; PULSE 66–92; RESP 16–20; TEMP 36.8–36.9; O2SAT 94–97
[2024-01-01 04:34] LABS: Basophils Percent Auto 0.3 % (0.2-2.0); Eosinophils Absolute Auto 0.1 10^3/uL (0.0-0.7); Eosinophils Percent Auto 1.3 % (0.9-7.0); Hematocrit 28.9 % (36.0-48.0); Hemoglobin 9.2 g/dL (12.0-16.0); Immature Granulocytes Abs Auto 0.01 10^3/uL (0.00-0.03); Immature Granulocytes Pct Auto 0.1 % (0.0-0.5); Lymphocytes Percent Auto 28.3 % (20.5-60.0); Mean Corpuscular HGB Conc 31.8 g/dL (29.9-35.2); Mean Corpuscular Hemoglobin 30.4 pg (26.7-34.0); Mean Corpuscular Volume 95.4 fL (81.0-99.0); Mean Platelet Volume 9.7 fL (9.5-13.5); Monocytes Absolute Auto 0.8 10^3/uL (0.3-0.8); Monocytes Percent Auto 10.5 % (1.7-12.0); Neutrophils Absolute Auto 4.2 10^3/uL (1.4-6.5); Neutrophils Percent Auto 59.5 % (43.0-75.0); Platelet Count 168 10^3/uL (150-450); Red Blood Count 3.03 10^6/uL (4.20-5.40); Red Cell Distribution Width 15.8 % (11.0-15.0); White Blood Count 7.1 10^3/uL (4.0-11.0)
[2024-01-01 04:50] LABS: Magnesium 1.9 mg/dL (1.8-2.4)
[2024-01-01 04:54] LABS: Alanine Aminotransferase 31 U/L (14-59); Albumin Globulin Ratio 0.9; Albumin Level 3.1 g/dL (3.4-5.0); Alkaline Phosphatase 77 U/L (46-116); Aspartate Amino Transferase 19 U/L (15-37); BUN Creatinine Ratio 24.8; Bilirubin Total 0.5 mg/dL (0.2-1.0); Carbon Dioxide 19.9 mmol/L (21.0-32.0); Chloride 105 mmol/L (98-107); Estimated GFR (African America 25 (>=60); Estimated GFR (Non-African Ame 21 (>=60); Globulin 3.3 g/dL; Glucose 140 mg/dL (74-106); Potassium 4.9 mmol/L (3.5-5.1); Sodium 134 mmol/L (136-145); Total Protein 6.4 g/dL (6.4-8.2)
[2024-01-01] MEDS: MAGNESIUM OXIDE 400 MG TABLET PO (05:42)
[2024-01-01] MEDS: ENOXAPARIN SODIUM 30 MG/0.3 ML SYRINGE SUBQ (05:42)
[2024-01-01] MEDS: LEVOTHYROXINE SODIUM 125 MCG TABLET PO (05:42)
--- NOTE | 2024-01-01 06:00 | ECG_ITS ---
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
--- NOTE | 2024-01-01 07:42 | P.DS_ITS ---
DS: Providers Provider Date of admission: 12/31/23 00:15 Primary care physician: Merrick Rubi MD Consults: 12/31/23 06:20 Consult to Pharmacy Routine Consulting Provider: Reason for consultation: can you let me know when meds are verified - tiger me please DS: Diagnosis Discharge Diagnosis (1) Chest pain: Plan Patient with chest pain related to hypertensive urgency with blood pressure 292/118 Acute kidney injury with a baseline creatinine of 1.65-on admission was 2.36-at the 143% above baseline. Acute UTI-start IV antibiotics. Iron deficiency anemia and anemia of chronic kidney disease stage III Hypothyroidism Hypomagnesemia IDDM DS: Summary Hospital Course Hospital Course: Patient was seen and evaluated in the emergency room with chest pain. Found to have hypertensive urgency, blood pressure significant elevated and was difficult to control over the first 24 hours. Did require hydralazine overnight last night as well. Will adjust blood pressure medications again this morning, increase carvedilol to 1-1/2 twice a day, increase clonidine to 0.2 mg twice a day. If stable after lunch we will likely discharge patient to home. Patient also had acute kidney injury with creatinine 143% above baseline. It is overall improving. Her thyroid levels were normal. She does have some mild iron deficiency anemia which we will follow as an outpatient. Overall patient feels much improved this morning. If he can maintain his blood pressure under good control with oral medications she will be discharged home in improving condition. Medications see list. Follow-up with me in cardiology in the office within the next couple days. With acute kidney injury-no edema, will hold off on diuretics at home. Time Spent with Patient Time attestation: Total time spent providing and/or coordinating discharge services: Exam Constitutional Vital Signs, click to edit/add: Last Vital Signs Temp 98.5 F 01/01/24 04:00 Pulse 81 01/01/24 07:35 Resp 16 01/01/24 07:35 BP 161/57 H 01/01/24 07:35 Pulse Ox 97 01/01/24 07:35 O2 Del Method Room Air 01/01/24 07:35 Documenting provider has reviewed patient's vital signs: yes Common normals: no apparent distress Chest Common normals: inspection of chest normal Respiratory Common normals: normal respiratory effort and no retractions Cardio Common normals: regular rate and regular rhythm Heart sounds: murmur systolic GI Common normals: Normal to inspection, nondistended, normoactive bowel sounds present Extremity Common normals: normal to inspection, full ROM and no clubbing, cyanosis or edema DS: Data Data Completed and Pending Labs on day of discharge: Labs from last 24 hours 01/01/24 12/31/23 12/31/23 03:54 21:06 16:09 WBC 7.1 RBC 3.03 L Hgb 9.2 L Hct 28.9 L MCV 95.4 MCH 30.4 MCHC 31.8 RDW 15.8 H Plt Count 168 MPV 9.7 Neut % (Auto) 59.5 Lymph % (Auto) 28.3 [place] % (Auto) 10.5 Eos % (Auto) 1.3 Baso % (Auto) 0.3 Neut # (Auto) 4.2 Lymph # (Auto) 2.0 [place] # (Auto) 0.8 Eos # (Auto) 0.1 Baso # (Auto) 0.0 Abs Immat Gran (auto) 0.01 Imm/Tot Granulo (auto) 0.1 Sodium 134 L Potassium 4.9 Chloride 105 Carbon Dioxide 19.9 L Anion Gap 14.0 BUN 56.0 H Creatinine 2.26 H Est GFR ( Amer) 25 L Est GFR (Non-Af Amer) 21 L BUN/Creatinine Ratio 24.8 Glucose 140 H Calcium 9.0 Magnesium 1.9 Total Bilirubin 0.5 AST 19 ALT 31 Alkaline Phosphatase 77 Total Protein 6.4 Albumin 3.1 L Globulin 3.3 Albumin/Globulin Ratio 0.9 Urine RBC Urine WBC Ur Squamous Epith Cells Urine Crystals Urine Bacteria Urine Casts Urine Mucus Ur Culture Indicated? POC Glucose 233 H 215 H 12/31/23 12/31/23 12/31/23 11:13 07:48 07:30 WBC RBC Hgb Hct MCV MCH MCHC RDW Plt Count MPV Neut % (Auto) Lymph % (Auto) [place] % (Auto) Eos % (Auto) Baso % (Auto) Neut # (Auto) Lymph # (Auto) [place] # (Auto) Eos # (Auto) Baso # (Auto) Abs Immat Gran (auto) Imm/Tot Granulo (auto) Sodium Potassium Chloride Carbon Dioxide Anion Gap BUN Creatinine Est GFR ( Amer) Est GFR (Non-Af Amer) BUN/Creatinine Ratio Glucose Calcium Magnesium Total Bilirubin AST ALT Alkaline Phosphatase Total Protein Albumin Globulin Albumin/Globulin Ratio Urine RBC 5-10 A Urine WBC 75-100 A Ur Squamous Epith Cells Moderate A Urine Crystals None seen Urine Bacteria Moderate A Urine Casts None seen Urine Mucus Trace A Ur Culture Indicated? Already ordered POC Glucose 243 H 198 H Discharge Plan Discharge Disposition: Home, Self-Care Condition: Fair Discharge Medications: New carvedilol 25 mg Tablet 37.5 mg PO BID Qty: 90 11RF clonidine HCl 0.1 mg Tablet 0.2 mg PO BID Qty: 120 11RF levofloxacin 500 mg tablet 500 mg PO DAILY 7 Days Qty: 7 0RF Continued allopurinol 300 mg tablet 300 mg PO DAILY atorvastatin 80 mg tablet 80 mg PO .QHS insulin aspart U-100 [Novolog FlexPen U-100 Insulin] 100 unit/mL (3 mL) insulin pen 12 unit SUBCUT DAILY Rx Instructions: 12 units am, 16units at lunch and 22 units in pm levothyroxine 125 mcg tablet 125 mcg PO DAILY liothyronine 5 mcg tablet 10 mcg PO .QD magnesium oxide 400 mg (241.3 mg magnesium) tablet 400 mg PO TID pantoprazole 40 mg tablet,delayed release (DR/EC) 40 mg PO .QD lisinopril 20 mg tablet 20 mg PO .once a day meloxicam 15 mg tablet 15 mg PO .QD ferrous sulfate 325 mg (65 mg iron) tablet 325 mg PO BID Discontinued carvedilol 25 mg tablet 25 mg PO TIDWM furosemide 20 mg tablet 20 mg PO DAILY Activity: increase activity as tolerated Diet: advance to your usual diet Print Language: Belarusian Patient Instructions: Clonidine (By mouth), Levofloxacin (By mouth), Hypertensive Crisis (GEN) Forms: Portal Instructions Follow Up Appointments: [facility] [place] office January [address] Rubi January 07 845 am Discharge Date/Time: 01/01/24 11:54
[2024-01-01] MEDS: LIOTHYRONINE SODIUM 5 MCG TABLET 10 MCG PO (08:26)
[2024-01-01] MEDS: HYDROCHLOROTHIAZIDE 25 MG TABLET PO (08:26)
[2024-01-01] MEDS: CARVEDILOL 25 MG TABLET 37.5 MG PO (08:27)
[2024-01-01] MEDS: LISINOPRIL 20 MG TABLET PO (08:27)
[2024-01-01] MEDS: CLONIDINE HCL 0.1 MG TABLET 0.200000000000000011 MG PO (08:27)
[2024-01-01] MEDS: OMEPRAZOLE 40 MG CAPSULE.DR PO (08:28)
[2024-01-01] MEDS: FERROUS SULFATE 325 MG TABLET PO (08:28)
[2024-01-01] MEDS: INSULIN DETEMIR 300 UNIT/3 ML INSULN.PEN 30 UNIT SUBQ (08:28)
--- NOTE | 2024-01-02 15:49 | CM.DCFOLLOWU ---
Person spoke with: patient How are you feeling? really well How is your pain? no pain Did you understand your discharge instructions? yes Do you have any questions about your discharge instructions? no Were you given any prescriptions at discharge? yes Were you able to get your prescriptions filled? yes Do you understand how to take your medications as ordered? yes Do you have any questions about your follow up appointment and do you plan to keep your follow up appointment? no questions, yes reviewed all follow ups with patient Is there anything else that you would like to discuss? no Questions/Comments/Concerns/Other: N/A
== END 2024-01-01 11:54 | disposition home or self-care (01) ==
LOC: ER 23:41 → ICU 12-31 00:16
PROVIDERS: Family Medicine; Nurse Practitioner Acute Care; Physician Assistant; Admitting Provider Family Medicine; Emergency Provider Internal Medicine; PCP Family Medicine; Visit Provider Family Medicine
DX: I16.0 Hypertensive urgency (principal); N17.9 Acute kidney failure, unspecified; N39.0 Urinary tract infection, site not specified; D50.9 Iron deficiency anemia, unspecified; I12.9 Hypertensive chronic kidney disease with stage 1 through stage 4 chronic kidney disease, or unspecified chronic kidney disease; N18.30 Chronic kidney disease, stage 3 unspecified; D63.1 Anemia in chronic kidney disease; E03.9 Hypothyroidism, unspecified; E83.42 Hypomagnesemia; E11.22 Type 2 diabetes mellitus with diabetic chronic kidney disease; I73.00 Raynaud's syndrome without gangrene; Z85.828 Personal history of other malignant neoplasm of skin; I25.10 Atherosclerotic heart disease of native coronary artery without angina pectoris; Z95.1 Presence of aortocoronary bypass graft; Z98.890 Other specified postprocedural states; Z90.49 Acquired absence of other specified parts of digestive tract; Z90.710 Acquired absence of both cervix and uterus; Z87.891 Personal history of nicotine dependence; Z79.899 Other long term (current) drug therapy; Z79.890 Hormone replacement therapy; Z79.4 Long term (current) use of insulin; B96.20 Unspecified Escherichia coli [E. coli] as the cause of diseases classified elsewhere
CPT/HCPCS: 36415; 71045; 72125; 80053; 81001; 82948; 83735; 83880; 84436; 84443; 84481; 84484; 85025; 85610; 85730; 86140; 87086; 87150; 87186; 93005; 96365; 96366; 96372; 96375; 96376; 99285; G0378

== ENCOUNTER 2024-01-09 10:04 | Outpatient (OUT) | payer MEDICARE, SELFPAY ==
--- OUTSIDE RECORDS SUMMARY | 2024-01-09 10:19 | XMS_ITS | CCD ---
Author Organization [facility] Care Team Providers Care Cardiovascular Invasive Specialist Name Role Phone PHYSICIAN, DEFAULT Unavailable Unavailable PHYSICIAN, DEFAULT Unavailable Unavailable Doreen, Ron Unavailable Mary Anne Ackerman Unavailable Jana Monson Unavailable BHAVIK ., DR [...] Unavailable Dhruv Rubi MD Primary Care Provider [phone] Allergies Allergy Classification Reported Allergen(s) Allergy Type Date of Onset Reaction(s) Facility (20 sources) amLODIPine Drug Allergy 03-28-20 05 [facility] (20 sources) Amoxicillin / Clavulanate Drug Allergy 11-23-19 [facility] [employer] Other (20 sources) Contrast media Propensity to adverse reactions Unknown [employer] Other (2 sources) Doxazosin; Translations: [doxazosin] Drug Allergy Unknown [employer] Other (20 sources) Sulfamethoxazole / Trimethoprim Drug Allergy 11-23-19 [facility] [employer] Other (20 sources) Doxazosin Drug Allergy 11-23-19 21 Unknown [employer] Other (9 sources) Amoxicillin / Clavulanate; Translations: [Augmentin] Drug Allergy 11-16-19 16 Unknown [facility] (1 source) amLODIPine Drug Allergy 04-25-20 14 [facility] (1 source) Sulfamethoxazole / Trimethoprim Drug Allergy 03-09-20 13 [facility] (1 source) Iodinated Contrast Media Propensity to adverse reactions to drug 11-23-19 21 [facility] Medications Current Medications Medication Drug Class(es) Dates [...] Aggregation Inhibitor, Nonsteroidal Anti-inflammatory Drug Start: 01-12-20 21 take 1 tablet by mouth once daily aspirin 81 mg Indications: Hypertensive urgency , Shortness of breath , H/O four vessel coronary artery bypass graft , 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 0 Active [facility] in [facility] Synthroid 125 [...] 0 12/05/2021 Active take 2 tablets by [facility] [...] Start: 01-15-2022 take 1 tablet by enzo in the morning lisinopriL (PRINIVIL,ZESTRIL) 5 mg [...] 07/09/2023 Active take 1 tablet by enzo every twelve hours Magnesium Oxide 400 MG [...] in the morning. 0 12/19/2020 Active retacrit 48827 unit/ml solution (5 sources) Retacrit 32489 UNIT/ML as directed Injection Active Sennosides-Docusate Sodium [...] Coronary atherosclerosis; Translations: [Atherosclerotic heart disease of [place] de[place] coronary artery without angina pectoris] Onset: 1 [...] [Volume fraction] 28.8 % Critically low 36.0-48.0 [facility] Comment on above: Performed By: #### H H #### [facility] [address] [place] [address] Dr. Ember Teague Hemoglobin (Bld) [Mass/Vol] 9.6 g/dL Critically low 12.0-16.0 [facility] Comment on above: Performed By: #### H H #### [facility] [address] [place] [address] Dr. Ember Teague MCH (RBC) [Entitic mass] 30.7 pg Normal 26.7-34.0 [facility] Comment on above: Performed By: #### H H #### [facility] [address] [place] [address] Dr. Ember Teague MCHC (RBC) [Mass/Vol] 33.3 g/dL Normal 29.9-35.2 [facility] Comment on above: Performed By: #### H H #### [facility] [address] [place] [address] Dr. Ember Teague MCV (RBC) [Entitic vol] 92.0 fL Normal 81.0-99.0 [facility] Comment on above: Performed By: #### H H #### [facility] [address] [place] [address] Dr. Ember Teague PLT 214 103/ul Normal 150-450 [facility] Comment on above: Performed By: #### H H #### [facility] [address] [place] [address] Dr. Ember Teague RBC 3.13 106/ul Critically low 4.20-5.40 [facility] Comment on above: Performed By: #### H H #### [facility] [address] [place] [address] Dr. Ember Teague WBC 7.4 103/ul Normal 4.0-11.0 [facility] Comment on above: Performed By: #### H H #### [facility] [address] [place] [address] Dr. Ember Teague MAGNESIUMon 01-22-2023 Magnesium [Mass/Vol] 1.8 mg/dL Normal 1.8-2.4 [facility] Comment on above: Performed By: #### M G, RENAL #### [facility] [address] [place] [address] Dr. Ember Teague RENAL FUNCTION PANELon 01-22 Albumin [Mass/Vol] 3.6 g/dL Normal 3.4-5.0 [facility] Comment on above: Performed By: #### M G, RENAL #### [facility] [address] [place] [address] Dr. Ember Teague Calcium [Mass/Vol] 9.7 mg/dL Normal 8.5-10.1 [facility] Comment on above: Performed By: #### Lico Stout, RENAL #### [facility] [address] [place] [address] Dr. Ember Teague Chloride [Moles/Vol] 105 mmol/L Normal 98-107 [facility] Comment on above: Performed By: #### M G, RENAL #### [facility] [address] [place] [address] Dr. Ember Teague CO2 [Moles/Vol] 22.6 mmol/L Normal 21.0-32.[address] [facility] Comment on above: Performed By: #### M G, RENAL #### [facility] [address] [place] [address] Dr. Ember Teague Creatinine [Mass/Vol] 2.18 mg/dL Critically high 0.55-1.02 [facility] Comment on above: Performed By: #### M G, RENAL #### [facility] [address] [address] [address] Ember Teague EGFR-AF POLISH 26 mL/min/1.73m2 Critically low >=60 [facility] Comment on above: Performed By: #### M G, RENAL #### [facility] [address] [address] [address] Ember Teague EGFR-NON AF POLISH 22 mL/min/1.73m2 Critically low >=60 [facility] Comment on above: Performed By: #### M G, RENAL #### [facility] [address] [address] [address] Ember Teague Glucose [Mass/Vol] 134 mg/dL Critically high 74-106 [facility] Comment on above: Performed By: #### M G, RENAL #### [facility] [address] [address] [address] Ember Teague Phosphate [Mass/Vol] 4.6 mg/dL Normal 2.6-4.7 [facility] Comment on above: Performed By: #### M G, RENAL #### [facility] [address] [address] [address] Ember Teague Potassium [Moles/Vol] 5.1 mmol/L Normal 3.5-5.1 [facility] Comment on above: Performed By: #### M G, RENAL #### [facility] [address] [address] [address] Ember Teague Sodium [Moles/Vol] 138 mmol/L Normal 136-145 [facility] Comment on above: Performed By: #### M G, RENAL #### [facility] [address] [address] [address] Ember Teague Urea nitrogen [Mass/Vol] 61.0 mg/dL Critically high 7.0-18.0 [facility] Comment on above: Performed By: #### M G, RENAL #### [facility] [address] [address] [address] Ember Teague MG MAMM SCREEN 3D MAY CADon 12-17-2022 MG MAMM SCREEN 3D MAY CAD Patient: KYLAH ROBIN Exam Date: 12/17/2022 : 1945 Gender:F Ordering : DR DHRUV RUBI . Admission #: [id number] Family : Order #: [id number] CLICK HERE TO VIEW EXAM RADIOLOGY REPORT [...] lung cancer at age 61. LOCATION: [facility] BREAST COMPOSITION: Scattered areas fibroglandular density. [...] MD on 12/17/2022 at 11:59 Normal [facility] FERRITINon 12-10-2022 Ferritin [Mass/Vol] 681.0 ng/mL Critically high 8.0-252.0 [facility] Comment on above: Performed By: #### P THINT #### [facility] [address] [place] [address] Dr. Ember Teague HEMOGRAM AND PLATELon 2022 Hematocrit (Bld) [Volume fraction] 27.1 % Critically low 36.0-48.0 [facility] Comment on above: Performed By: #### C VDTBH #### [facility] [address] [place] [address] Dr. Ember Teague Hemoglobin (Bld) [Mass/Vol] 9.7 g/dL Critically low 12.0-16.0 [facility] Comment on above: Performed By: #### C VDTBH #### [facility] [address] [place] [address] Dr. Ember Teague MCH (RBC) [Entitic mass] 31.4 pg Normal 26.7-34.0 [facility] Comment on above: Performed By: #### C VDTBH #### [facility] [address] [place] [address] Dr. Ember Teague MCHC (RBC) [Mass/Vol] 35.8 g/dL Critically high 29.9-35.2 [facility] Comment on above: Performed By: #### C VDTBH #### [facility] [address] [place] [address] Dr. Ember Teague MCV (RBC) [Entitic vol] 87.7 fL Normal 81.0-99.0 [facility] Comment on above: Performed By: #### C VDTBH #### [facility] [address] [place] [address] Dr. Ember Teague PLT 218 103/ul Normal 150-450 [facility] Comment on above: Performed By: #### C VDTBH #### [facility] [address] [place] [address] Dr. Ember Teague RBC 3.09 106/ul Critically low 4.20-5.40 [facility] Comment on above: Performed By: #### C VDTBH #### [facility] [address] [place] [address] Dr. Ember Teague WBC 6.6 103/ul Normal 4.0-11.0 [facility] Comment on above: Performed By: #### C VDTBH #### [facility] [address] [place] [address] Dr. Ember Teague IRON AND TIBCon 12-10-2022 % SATURATION 30.2 % Normal [facility] Comment on above: Performed By: #### P THINT #### [facility] [address] [place] [address] Dr. Ember Teague Iron [Mass/Vol] 84.0 ug/dL Normal 50.0-170.0 [facility] Comment on above: Performed By: #### P THINT #### [facility] [address] [place] [address] Dr. Ember Teague TIBC DIRECT 278.0 ug/dL Normal 250.0-450.0 [facility] Comment on above: Performed By: #### P THINT #### [facility] [address] [place] [address] Dr. Ember Teague XR FOOT MAY MIN [...] BENI APARICIO Date: 2022-11-20 14:03 Normal [facility] HEMOGRAM AND PLATELon 2022 Hematocrit (Bld) [Volume fraction] 27.7 % Critically low 36.0-48.0 [facility] Comment on above: Performed By: #### R ENAL #### [facility] [address] [place] [address] Dr. Ember Teague Hemoglobin (Bld) [Mass/Vol] 10.0 g/dL Critically low 12.0-16.0 [facility] Comment on above: Performed By: #### R ENAL #### [facility] [address] [place] [address] Dr. Ember Teague MCH (RBC) [Entitic mass] 31.6 pg Normal 26.7-34.0 [facility] Comment on above: Performed By: #### R ENAL #### [facility] [address] [place] [address] Dr. Ember Teague MCHC (RBC) [Mass/Vol] 36.1 g/dL Critically high 29.9-35.2 [facility] Comment on above: Performed By: #### R ENAL #### [facility] [address] [place] [address] Dr. Ember Teague MCV (RBC) [Entitic vol] 87.7 fL Normal 81.0-99.0 [facility] Comment on above: Performed By: #### R ENAL #### [facility] [address] [place] [address] Dr. Ember Teague PLT 182 103/ul Normal 150-450 [facility] Comment on above: Performed By: #### R ENAL #### [facility] [address] [place] [address] Dr. Ember Teague RBC 3.16 106/ul Critically low 4.20-5.40 [facility] Comment on above: Performed By: #### R ENAL #### [facility] [address] [place] [address] Dr. Ember Teague WBC 6.8 103/ul Normal 4.0-11.0 [facility] Comment on above: Performed By: #### R ENAL #### [facility] [address] [place] [address] Dr. Ember Teague PROF CHEM 8 (BAS METB)on Anion gap [Moles/Vol] 17.6 mmol/L Normal [facility] Comment on above: Performed By: #### C VDTBH #### [facility] [address] [place] [address] Dr. Ember Teague Calcium [Mass/Vol] 9.0 mg/dL Normal 8.5-10.1 [facility] Comment on above: Performed By: #### C VDTBH #### [facility] [address] [place] [address] Dr. Ember Teague Chloride [Moles/Vol] 104 mmol/L Normal 98-107 [facility] Comment on above: Performed By: #### C VDTBH #### [facility] [address] [place] [address] Dr. Ember Teague CO2 [Moles/Vol] 22.2 mmol/L Normal 21.0-32.[address] [facility] Comment on above: Performed By: #### C VDTBH #### [facility] [address] [address] [address] Ember Teague Creatinine [Mass/Vol] 2.03 mg/dL Critically high 0.55-1.02 [facility] Comment on above: Performed By: #### C VDTBH #### [facility] [address] [address] [address] Ember Teague EGFR-AF POLISH 29 mL/min/1.73m2 Critically low >=60 [facility] Comment on above: Performed By: #### C VDTBH #### [facility] [address] [address] [address] Ember Teague EGFR-NON AF POLISH 24 mL/min/1.73m2 Critically low >=60 [facility] Comment on above: Performed By: #### C VDTBH #### [facility] [address] [address] [address] Ember Teague Glucose [Mass/Vol] 154 mg/dL Critically high 74-106 [facility] Comment on above: Performed By: #### C VDTBH #### [facility] [address] [address] [address] Ember Teague Potassium [Moles/Vol] 4.8 mmol/L Normal 3.5-5.1 [facility] Comment on above: Performed By: #### C VDTBH #### [facility] [address] [address] [address] Ember Teague Sodium [Moles/Vol] 139 mmol/L Normal 136-145 [facility] Comment on above: Performed By: #### C VDTBH #### [facility] [address] [address] [address] Ember Teague Urea nitrogen [Mass/Vol] 43.0 mg/dL Critically high 7.0-18.0 [facility] Comment on above: Performed By: #### C VDTBH #### [facility] [address] [address] [address] Ember Teague Urea nitrogen/Creatinine [Mass ratio] 21.2 mg/mg Normal [facility] Comment on above: Performed By: #### C VDTBH #### [facility] [address] [address] [address] Ember Teague CULTURE SPUTUMon 10-24-2022 CULTURE SPUTUM Culture Observations : Beta lactamase positive Isolate 1 Haemophilus influenzae Moderate growth of Normal [facility] Comment on above: Performed By: #### R ENAL #### [facility] [address] [address] [address] Ember Teague SPUTUM GRAM STAINon 10-24-19 COMMENTS Normal [facility] Comment on above: Performed By: #### R ENAL #### [facility] [address] [place] [address] Dr. Ember Teague DIPHTHEROIDS [facility] Comment on above: Performed By: #### R ENAL #### [facility] [address] [address] [address] Ember Teague EPITHELIALS >25 Normal [facility] Comment on above: Performed By: #### R ENAL #### [facility] [address] [address] [address] Ember Teague FUNGAL ELEMENTS Normal [facility] Comment on above: Performed By: #### R ENAL #### [facility] [address] [place] [address] Dr. Ember Teague GRAM NEG BACILLI Normal [facility] Comment on above: Performed By: #### R ENAL #### [facility] [address] [place] [address] Dr. Ember Teague GRAM NEG DIPPLOCOCCI FEW Normal [facility] Comment on above: Performed By: #### R ENAL #### [facility] [address] [place] [address] Dr. Ember LOCKWOOD POS BACILLI FEW Normal [facility] Comment on above: Performed By: #### R ENAL #### [facility] [address] [place] [address] Dr. Ember Teague GRAM POSITIVE COCCI MANY Normal [facility] Comment on above: Performed By: #### R ENAL #### [facility] [address] [address] [address] Ember Teague WBC (Bld) [#/Vol] 10*3/uL Normal [facility] Comment on above: Performed By: #### R ENAL #### [facility] [address] [address] [address] Ember Teague XR CHEST 2 Von [...] by: ANGELINA BRISENO Date: 2022-10-24 16:22 Normal [facility] FERRITINon 09-18-2022 Ferritin [Mass/Vol] 612.0 ng/mL Critically high 8.0-252.0 [facility] Comment on above: Performed By: #### F ERR, FETIBC #### [facility] [address] [place] [address] Dr. Ember Teague HEMOGRAM AND PLATELon 2021 Hematocrit (Bld) [Volume fraction] 28.1 % Critically low 36.0-48.0 [facility] Comment on above: Performed By: #### C BC #### [facility] [address] [address] [address] Ember Teague Hemoglobin (Bld) [Mass/Vol] 9.7 g/dL Critically low 12.0-16.0 [facility] Comment on above: Performed By: #### C BC #### [facility] [address] [place] [address] Dr. Ember Teague MCH (RBC) [Entitic mass] 31.3 pg Normal 26.7-34.0 [facility] Comment on above: Performed By: #### C BC #### [facility] [address] [address] [address] Ember Teague MCHC (RBC) [Mass/Vol] 34.5 g/dL Normal 29.9-35.2 [facility] Comment on above: Performed By: #### C BC #### [facility] [address] [address] [address] Ember Teague MCV (RBC) [Entitic vol] 90.6 fL Normal 81.0-99.0 [facility] Comment on above: Performed By: #### C BC #### [facility] [address] [address] [address] Ember Teague PLT 183 103/ul Normal 150-450 [facility] Comment on above: Performed By: #### C BC #### [facility] [address] [place] [address] Dr. Ember Teague RBC 3.10 106/ul Critically low 4.20-5.40 [facility] Comment on above: Performed By: #### C BC #### [facility] [address] [place] [address] Dr. Ember Teague WBC 7.2 103/ul Normal 4.0-11.0 [facility] Comment on above: Performed By: #### C BC #### [facility] [address] [place] [address] Dr. Ember Teague IRON AND TIBCon 09-18-2022 % SATURATION 36.0 % Normal [facility] Comment on above: Performed By: #### F ERR, FETIBC #### [facility] [address] [place] [address] Dr. Ember Teague Iron [Mass/Vol] 77.0 ug/dL Normal 50.0-170.0 [facility] Comment on above: Performed By: #### F ERR, FETIBC #### [facility] [address] [place] [address] Dr. Ember Teague TIBC DIRECT 214.0 ug/dL Critically low 250.0-450.0 [facility] Comment on above: Performed By: #### F ERR, FETIBC #### [facility] [address] [address] [address] Ember Teague RENAL FUNCTION PANELon 09-18 Albumin [Mass/Vol] 3.7 g/dL Normal 3.4-5.0 [facility] Comment on above: Performed By: #### R ENAL #### [facility] [address] [place] [address] Dr. Ember Teague Calcium [Mass/Vol] 9.5 mg/dL Normal 8.5-10.1 [facility] Comment on above: Performed By: #### R ENAL #### [facility] [address] [place] [address] Dr. Ember Teague Chloride [Moles/Vol] 103 mmol/L Normal 98-107 [facility] Comment on above: Performed By: #### R ENAL #### [facility] [address] [place] [address] Dr. Ember Teague CO2 [Moles/Vol] 21.1 mmol/L Normal 21.0-32.[address] [facility] Comment on above: Performed By: #### R ENAL #### [facility] [address] [place] [address] Dr. Ember Teague Creatinine [Mass/Vol] 1.85 mg/dL Critically high 0.55-1.02 [facility] Comment on above: Performed By: #### R ENAL #### [facility] [address] [place] [address] Dr. Ember Teague EGFR-AF POLISH 32 mL/min/1.73m2 Critically low >=60 [facility] Comment on above: Performed By: #### R ENAL #### [facility] [address] [place] [address] Dr. Ember Teague EGFR-NON AF POLISH 26 mL/min/1.73m2 Critically low >=60 [facility] Comment on above: Performed By: #### R ENAL #### [facility] [address] [place] [address] Dr. Ember Teague Glucose [Mass/Vol] 183 mg/dL Critically high 74-106 [facility] Comment on above: Performed By: #### R ENAL #### [facility] [address] [place] [address] Dr. Ember Teague Phosphate [Mass/Vol] 3.7 mg/dL Normal 2.6-4.7 [facility] Comment on above: Performed By: #### R ENAL #### [facility] [address] [place] [address] Dr. Ember Teague Potassium [Moles/Vol] 4.9 mmol/L Normal 3.5-5.1 [facility] Comment on above: Performed By: #### R ENAL #### [facility] [address] [place] [address] Dr. Ember Teague Sodium [Moles/Vol] 138 mmol/L Normal 136-145 [facility] Comment on above: Performed By: #### R ENAL #### [facility] [address] [place] [address] Dr. Ember Teague Urea nitrogen [Mass/Vol] 40.0 mg/dL Critically high 7.0-18.0 [facility] Comment on above: Performed By: #### R ENAL #### [facility] [address] [place] [address] Dr. Ember Teague CULTURE URINEon 09-15-2022 CULTURE [...] F Trimethoprim/Sulfamet hoxazole <=20 S F Normal [facility] Comment on above: Performed By: #### R ENAL #### [facility] [address] [place] [address] Dr. Ember Teague BNPon 09-11-2022 Natriuretic peptide B (Bld) [Mass/Vol] 408.0 pg/mL Normal <=1,800.0 [facility] Comment on above: Performed By: #### P THINT #### [facility] [address] [place] [address] Dr. Ember Teague CBC AUTO DIFFon 09-11-2022 BASO # 0.0 103/ul Normal 0.0-0.1 [facility] Comment on above: Performed By: #### C BC #### [facility] [address] [place] [address] Dr. Ember Teague Basophils/100 WBC (Bld) 0.3 % Normal 0.2-2.0 [facility] Comment on above: Performed By: #### C BC #### [facility] [address] [place] [address] Dr. Ember Teague EO # 0.1 103/ul Normal 0.0-0.7 [facility] Comment on above: Performed By: #### C BC #### [facility] [address] [place] [address] Dr. Ember Teague Eosinophils/100 WBC (Bld) 1.9 % Normal 0.9-7.0 [facility] Comment on above: Performed By: #### C BC #### [facility] [address] [place] [address] Dr. Ember Teague Erythrocyte distribution width (RBC) [Ratio] 15.2 % Critically high 11.0-15.0 [facility] Comment on above: Performed By: #### C BC #### [facility] [address] [place] [address] Dr. Ember Teague Hematocrit (Bld) [Volume fraction] 26.6 % Critically low 36.0-48.0 [facility] Comment on above: Performed By: #### C BC #### [facility] [address] [place] [address] Dr. Ember Teague Hemoglobin (Bld) [Mass/Vol] 9.0 g/dL Critically low 12.0-16.0 [facility] Comment on above: Performed By: #### C BC #### [facility] [address] [place] [address] Dr. Ember Teague IG # 0.02 10e3/ul Normal 0.00-0.03 [facility] Comment on above: Performed By: #### C BC #### [facility] [address] [place] [address] Dr. Ember Teague IG % 0.3 % Normal 0.0-0.5 [facility] Comment on above: Performed By: #### C BC #### [facility] [address] [place] [address] Dr. Ember Teague LYMPH # 1.9 103/ul Normal 1.2-3.8 [facility] Comment on above: Performed By: #### C BC #### [facility] [address] [place] [address] Dr. Ember Teague Lymphocytes/100 WBC (Bld) 32.4 % Normal 20.5-60.0 [facility] Comment on above: Performed By: #### C BC #### [facility] [address] [place] [address] Dr. Ember Teague MANUAL DIFF REQ NO Normal [facility] Comment on above: Performed By: #### C BC #### [facility] [address] [place] [address] Dr. Ember Teague MCH (RBC) [Entitic mass] 31.1 pg Normal 26.7-34.0 [facility] Comment on above: Performed By: #### C BC #### [facility] [address] [place] [address] Dr. Ember Teague MCHC (RBC) [Mass/Vol] 33.8 g/dL Normal 29.9-35.2 [facility] Comment on above: Performed By: #### C BC #### [facility] [address] [place] [address] Dr. Ember Teague MCV (RBC) [Entitic vol] 92.0 fL Normal 81.0-99.0 [facility] Comment on above: Performed By: #### C BC #### [facility] [address] [address] [address] Ember Teague MONO # 0.6 103/ul Normal 0.3-0.8 [facility] Comment on above: Performed By: #### C BC #### [facility] [address] [place] [address] Dr. Ember Teague Monocytes/100 WBC (Bld) 10.0 % Normal 1.7-12.0 [facility] Comment on above: Performed By: #### C BC #### [facility] [address] [place] [address] Dr. Ember Teague NEUT # 3.2 103/ul Normal 1.4-6.5 [facility] Comment on above: Performed By: #### C BC #### [facility] [address] [place] [address] Dr. Ember Teague Neutrophils/100 WBC (Bld) 55.1 % Normal 43.0-75.0 [facility] Comment on above: Performed By: #### C BC #### [facility] [address] [place] [address] Dr. Ember Teague Platelet mean volume (Bld) [Entitic vol] 9.4 fL Critically low 9.5-13.5 [facility] Comment on above: Performed By: #### C BC #### [facility] [address] [place] [address] Dr. Ember Teague PLT 196 103/ul Normal 150-450 [facility] Comment on above: Performed By: #### C BC #### [facility] [address] [place] [address] Dr. Ember Teague RBC 2.89 106/ul Critically low 4.20-5.40 [facility] Comment on above: Performed By: #### C BC #### [facility] [address] [place] [address] Dr. Ember Teague WBC 5.8 103/ul Normal 4.0-11.0 [facility] Comment on above: Performed By: #### C BC #### [facility] [address] [place] [address] Dr. Ember Teague PROF 14(COMP METB)on 022 Albumin [Mass/Vol] 3.7 g/dL Normal 3.4-5.0 [facility] Comment on above: Performed By: #### P THINT #### [facility] [address] [place] [address] Dr. Ember Teague Albumin/Globulin [Mass ratio] 1.0 {ratio} Normal [facility] Comment on above: Performed By: #### P THINT #### [facility] [address] [place] [address] Dr. Ember Teague ALP [Catalytic activity/Vol] 79 U/L Normal 46-116 [facility] Comment on above: Performed By: #### P THINT #### [facility] [address] [place] [address] Dr. Ember Teague ALT [Catalytic activity/Vol] 24 U/L Normal 14-59 [facility] Comment on above: Performed By: #### P THINT #### [facility] [address] [place] [address] Dr. Ember Teague Anion gap [Moles/Vol] 12.8 mmol/L Normal [facility] Comment on above: Performed By: #### P THINT #### [facility] [address] [place] [address] Dr. Ember Teague AST [Catalytic activity/Vol] 17 U/L Normal 15-37 [facility] Comment on above: Performed By: #### P THINT #### [facility] [address] [place] [address] Dr. Ember Teague Bilirubin [Mass/Vol] 0.5 mg/dL Normal 0.2-1.0 [facility] Comment on above: Performed By: #### P THINT #### [facility] [address] [place] [address] Dr. Ember Teague Calcium [Mass/Vol] 9.4 mg/dL Normal 8.5-10.1 [facility] Comment on above: Performed By: #### P THINT #### [facility] [address] [place] [address] Dr. Ember Teague Chloride [Moles/Vol] 101 mmol/L Normal 98-107 [facility] Comment on above: Performed By: #### P THINT #### [facility] [address] [place] [address] Dr. Ember Teague CO2 [Moles/Vol] 24.3 mmol/L Normal 21.0-32.[address] [facility] Comment on above: Performed By: #### P THINT #### [facility] [address] [place] [address] Dr. Ember Teague Creatinine [Mass/Vol] 2.84 mg/dL Critically high 0.55-1.02 [facility] Comment on above: Performed By: #### P THINT #### [facility] [address] [place] [address] Dr. Ember Teague EGFR-AF POLISH 20 mL/min/1.73m2 Critically low >=60 [facility] Comment on above: Performed By: #### P THINT #### [facility] [address] [place] [address] Dr. Ember Teague EGFR-NON AF POLISH 16 mL/min/1.73m2 Critically low >=60 [facility] Comment on above: Performed By: #### P THINT #### [facility] [address] [place] [address] Dr. Ember Teague Globulin (S) [Mass/Vol] 3.7 g/dL Normal [facility] Comment on above: Performed By: #### P THINT #### [facility] [address] [place] [address] Dr. Ember Teague Glucose [Mass/Vol] 174 mg/dL Critically high 74-[address] [facility] Comment on above: Performed By: #### P THINT #### [facility] [address] [place] [address] Dr. Ember Teague Potassium [Moles/Vol] 5.1 mmol/L Normal 3.5-5.1 [facility] Comment on above: Performed By: #### P THINT #### [facility] [address] [place] [address] Dr. Ember Teague Protein [Mass/Vol] 7.4 g/dL Normal 6.4-8.2 [facility] Comment on above: Performed By: #### P THINT #### [facility] [address] [address] [address] Ember Teague Sodium [Moles/Vol] 133 mmol/L Critically low 136-[address] [facility] Comment on above: Performed By: #### P THINT #### [facility] [address] [address] [address] Ember Teague Urea nitrogen [Mass/Vol] 68.0 mg/dL Critically high 7.0-18.0 [facility] Comment on above: Performed By: #### P THINT #### [facility] [address] [place] [address] Dr. Ember Teague Urea nitrogen/Creatinine [Mass ratio] 23.9 mg/mg Normal [facility] Comment on above: Performed By: #### P THINT #### [facility] [address] [place] [address] Dr. Ember Teague TROPONIN, HIGH SENSITIVITYon 09-11-2022 HSTROP 9.1 pg/mL Normal 4.0-51.3 [facility] Comment on above: Result Comment: CUT- OFF POINTS HAVE BEEN ESTABLISHED BASED ON THE FOURTH UNIVERSAL DEFINITIONS OF MYOCARDIAL INFARCTION. THE UPPER REFERENCE LIMIT (URL) OF TROPONIN, DEFINED THE 99TH PERCENTILE OF cTnI DISTRIBUTION IN A REFERENCE POPULATION, HAS BEEN CONFIRMED THE DECISION THRESHOLD FOR SD DIAGNOSIS. Performed By: #### P THINT #### [facility] [address] [place] [address] Dr. Ember Teague UA RANDOM W/MICROSCOPICon BACTERIA NONE SEEN Normal NONE SEEN [facility] Comment on above: Performed By: #### C VDTBH #### [facility] [address] [place] [address] Dr. Ember Teague Bilirubin Ql (U) Negative Normal NEGATIVE [facility] Comment on above: Performed By: #### C VDTBH #### [facility] [address] [place] [address] Dr. Ember Teague CAST NONE SEEN Normal NONE SEEN [facility] Comment on above: Performed By: #### C VDTBH #### [facility] [address] [place] [address] Dr. Ember Teague Clarity (U) CLEAR Normal CLEAR [facility] Comment on above: Performed By: #### C VDTBH #### [facility] [address] [place] [address] Dr. Ember Teauge Color (U) LT. YELLOW Normal YELLOW [facility] Comment on above: Performed By: #### C VDTBH #### [facility] [address] [place] [address] Dr. Ember Teague Crystals LM Nom (Urine sed) NONE SEEN Normal NONE SEEN [facility] Comment on above: Performed By: #### C VDTBH #### [facility] [address] [place] [address] Dr. Ember Teague Epithelial cells LM Ql (Urine sed) FEW Abnormal NONE SEEN /RARE [facility] Comment on above: Performed By: #### C VDTBH #### [facility] [address] [place] [address] Dr. Ember Teague Glucose Ql (U) Negative Normal NEGATIVE [facility] Comment on above: Performed By: #### C VDTBH #### [facility] [address] [place] [address] Dr. Ember Teague Hemoglobin Ql (U) Negative Normal NEGATIVE [facility] Comment on above: Performed By: #### C VDTBH #### [facility] [address] [place] [address] Dr. Ember Teague Ketones Ql (U) Negative Normal NEGATIVE [facility] Comment on above: Performed By: #### C VDTBH #### [facility] [address] [place] [address] Dr. Ember Teague LEUKOCYTES Negative Normal NEGATIVE [facility] Comment on above: Performed By: #### C VDTBH #### [facility] [address] [place] [address] Dr. Ember Teague MUCOUS NONE SEEN Normal NONE SEEN [facility] Comment on above: Performed By: #### C VDTBH #### [facility] [address] [place] [address] Dr. Ember Teague Nitrite Ql (U) Negative Normal NEGATIVE [facility] Comment on above: Performed By: #### C VDTBH #### [facility] [address] [place] [address] Dr. Ember Teague pH (U) 5.5 [pH] Normal 5-9 [facility] Comment on above: Performed By: #### C VDTBH #### [facility] [address] [place] [address] Dr. Ember Teague RBC NONE SEEN Abnormal 0-2 [facility] Comment on above: Performed By: #### C VDTBH #### [facility] [address] [place] [address] Dr. Ember Teague SPEC GRAVITY 1.010 Normal 1.005-<=1.025 [facility] Comment on above: Performed By: #### C VDTBH #### [facility] [address] [place] [address] Dr. Ember Teague UA PROTEIN Negative Normal NEGATIVE/ TRACE [facility] Comment on above: Performed By: #### C VDTBH #### [facility] [address] [place] [address] Dr. Ember Teague Urobilinogen Qn (U) 0.2 {Esau'U}/dL Normal 0.2 - 1. 0 [facility] Comment on above: Performed By: #### C VDTBH #### [facility] [address] [place] [address] Dr. Ember Teague WBC NONE SEEN Normal NONE SEEN [facility] Comment on above: Performed By: #### C VDTBH #### [facility] [address] [place] [address] Dr. Ember Teague CBC AUTO DIFFon 08-13-2022 BASO # 0.0 103/ul Normal 0.0-0.1 [facility] Comment on above: Performed By: #### C BC #### [facility] [address] [place] [address] Dr. Ember Teague Basophils/100 WBC (Bld) 0.3 % Normal 0.2-2.0 [facility] Comment on above: Performed By: #### C BC #### [facility] [address] [place] [address] Dr. Ember Teague EO # 0.2 103/ul Normal 0.0-0.7 [facility] Comment on above: Performed By: #### C BC #### [facility] [address] [place] [address] Dr. Ember Teague Eosinophils/100 WBC (Bld) 3.7 % Normal 0.9-7.0 [facility] Comment on above: Performed By: #### C BC #### [facility] [address] [place] [address] Dr. Ember Teague Erythrocyte distribution width (RBC) [Ratio] 15.0 % Normal 11.0-15.0 [facility] Comment on above: Performed By: #### C BC #### [facility] [address] [place] [address] Dr. Ember Teague Hematocrit (Bld) [Volume fraction] 27.9 % Critically low 36.0-48.0 [facility] Comment on above: Performed By: #### C BC #### [facility] [address] [place] [address] Dr. Ember Teague Hemoglobin (Bld) [Mass/Vol] 9.7 g/dL Critically low 12.0-16.0 [facility] Comment on above: Performed By: #### C BC #### [facility] [address] [place] [address] Dr. Ember Teague IG # 0.01 10e3/ul Normal 0.00-0.03 [facility] Comment on above: Performed By: #### C BC #### [facility] [address] [place] [address] Dr. Ember Teague IG % 0.2 % Normal 0.0-0.5 [facility] Comment on above: Performed By: #### C BC #### [facility] [address] [place] [address] Dr. Ember Teague LYMPH # 1.9 103/ul Normal 1.2-3.8 [facility] Comment on above: Performed By: #### C BC #### [facility] [address] [place] [address] Dr. Ember Teague Lymphocytes/100 WBC (Bld) 32.2 % Normal 20.5-60.0 [facility] Comment on above: Performed By: #### C BC #### [facility] [address] [place] [address] Dr. Ember Teague MANUAL DIFF REQ NO Normal [facility] Comment on above: Performed By: #### C BC #### [facility] [address] [place] [address] Dr. Ember Teague MCH (RBC) [Entitic mass] 31.4 pg Normal 26.7-34.0 [facility] Comment on above: Performed By: #### C BC #### [facility] [address] [place] [address] Dr. Ember Teague MCHC (RBC) [Mass/Vol] 34.8 g/dL Normal 29.9-35.2 [facility] Comment on above: Performed By: #### C BC #### [facility] [address] [place] [address] Dr. Ember Teague MCV (RBC) [Entitic vol] 90.3 fL Normal 81.0-99.0 [facility] Comment on above: Performed By: #### C BC #### [facility] [address] [place] [address] Dr. Ember Teague MONO # 0.6 103/ul Normal 0.3-0.8 [facility] Comment on above: Performed By: #### C BC #### [facility] [address] [place] [address] Dr. Ember Teague Monocytes/100 WBC (Bld) 9.8 % Normal 1.7-12.0 [facility] Comment on above: Performed By: #### C BC #### [facility] [address] [place] [address] Dr. Ember Teague NEUT # 3.2 103/ul Normal 1.4-6.5 [facility] Comment on above: Performed By: #### C BC #### [facility] [address] [address] [address] Ember Teague Neutrophils/100 WBC (Bld) 53.8 % Normal 43.0-75.0 [facility] Comment on above: Performed By: #### C BC #### [facility] [address] [address] [address] Ember Teague Platelet mean volume (Bld) [Entitic vol] 10.0 fL Normal 9.5-13.5 [facility] Comment on above: Performed By: #### C BC #### [facility] [address] [place] [address] Dr. Ember Teague PLT 194 103/ul Normal 150-450 [facility] Comment on above: Performed By: #### C BC #### [facility] [address] [place] [address] Dr. Ember Teague RBC 3.09 106/ul Critically low 4.20-5.40 [facility] Comment on above: Performed By: #### C BC #### [facility] [address] [place] [address] Dr. Ember Teague WBC 6.0 103/ul Normal 4.0-11.0 [facility] Comment on above: Performed By: #### C BC #### [facility] [address] [place] [address] Dr. Ember Teague PTH INTACTon 06-26-2022 PTH, Intact 39 pg/mL Normal 15-65 [facility] Comment on above: Performed By: #### P THINT #### [facility] [address] [place] [address] Dr. Ember Teague CBC AUTO DIFFon 06-25-2022 BASO # 0.1 103/ul Normal 0.0-0.1 [facility] Comment on above: Performed By: #### C VDTBH #### [facility] [address] [address] [address] Ember Teague Basophils/100 WBC (Bld) 0.6 % Normal 0.2-2.0 [facility] Comment on above: Performed By: #### C VDTBH #### [facility] [address] [place] [address] Dr. Ember Teague EO # 0.2 103/ul Normal 0.0-0.7 [facility] Comment on above: Performed By: #### C VDTBH #### [facility] [address] [place] [address] Dr. Ember Teague Eosinophils/100 WBC (Bld) 3.0 % Normal 0.9-7.0 [facility] Comment on above: Performed By: #### C VDTBH #### [facility] [address] [place] [address] Dr. Ember Teague Erythrocyte distribution width (RBC) [Ratio] 14.2 % Normal 11.0-15.0 [facility] Comment on above: Performed By: #### C VDTBH #### [facility] [address] [place] [address] Dr. Ember Teague Hematocrit (Bld) [Volume fraction] 30.9 % Critically low 36.0-48.0 [facility] Comment on above: Performed By: #### C VDTBH #### [facility] [address] [place] [address] Dr. Ember Teague Hemoglobin (Bld) [Mass/Vol] 10.6 g/dL Critically low 12.0-16.0 [facility] Comment on above: Performed By: #### C VDTBH #### [facility] [address] [place] [address] Dr. Ember Teague IG # 0.04 10e3/ul Critically high 0.00-0.03 [facility] Comment on above: Performed By: #### C VDTBH #### [facility] [address] [place] [address] Dr. Ember Teague IG % 0.5 % Normal 0.0-0.5 [facility] Comment on above: Performed By: #### C VDTBH #### [facility] [address] [place] [address] Dr. Ember Teague LYMPH # 2.2 103/ul Normal 1.2-3.8 [facility] Comment on above: Performed By: #### C VDTBH #### [facility] [address] [place] [address] Dr. Ember Teague Lymphocytes/100 WBC (Bld) 27.0 % Normal 20.5-60.0 [facility] Comment on above: Performed By: #### C VDTBH #### [facility] [address] [place] [address] Dr. Ember Teague MANUAL DIFF REQ NO Normal [facility] Comment on above: Performed By: #### C VDTBH #### [facility] [address] [place] [address] Dr. Ember Teague MCH (RBC) [Entitic mass] 31.2 pg Normal 26.7-34.0 [facility] Comment on above: Performed By: #### C VDTBH #### [facility] [address] [place] [address] Dr. Ember Teague MCHC (RBC) [Mass/Vol] 34.3 g/dL Normal 29.9-35.2 [facility] Comment on above: Performed By: #### C VDTBH #### [facility] [address] [place] [address] Dr. Ember Teague MCV (RBC) [Entitic vol] 90.9 fL Normal 81.0-99.0 [facility] Comment on above: Performed By: #### C VDTBH #### [facility] [address] [place] [address] Dr. Ember Teague MONO # 0.7 103/ul Normal 0.3-0.8 [facility] Comment on above: Performed By: #### C VDTBH #### [facility] [address] [place] [address] Dr. Ember Teague Monocytes/100 WBC (Bld) 9.2 % Normal 1.7-12.0 [facility] Comment on above: Performed By: #### C VDTBH #### [facility] [address] [place] [address] Dr. Ember Teague NEUT # 4.8 103/ul Normal 1.4-6.5 [facility] Comment on above: Performed By: #### C VDTBH #### [facility] [address] [place] [address] Dr. Ember Teague Neutrophils/100 WBC (Bld) 59.7 % Normal 43.0-75.0 [facility] Comment on above: Performed By: #### C VDTBH #### [facility] [address] [place] [address] Dr. Ember Teague Platelet mean volume (Bld) [Entitic vol] 9.3 fL Critically low 9.5-13.5 [facility] Comment on above: Performed By: #### C VDTBH #### [facility] [address] [place] [address] Dr. Ember Teague PLT 227 103/ul Normal 150-450 [facility] Comment on above: Performed By: #### C VDTBH #### [facility] [address] [place] [address] Dr. Ember Teague RBC 3.40 106/ul Critically low 4.20-5.40 The [facility] Comment on above: Performed By: #### C VDTBH #### [facility] [address] [place] [address] Dr. Ember Teague WBC 8.0 103/ul Normal 4.0-11.0 [facility] Comment on above: Performed By: #### C VDTBH #### [facility] [address] [place] [address] Dr. Ember Teague MRI LSPINE WO CONon [...] YANET HUERTA Date: 2022-06-25 08:45 Normal [facility] RENAL FUNCTION PANELon 06-25 Albumin [Mass/Vol] 3.9 g/dL Normal 3.4-5.0 [facility] Comment on above: Performed By: #### P THINT #### [facility] [address] [place] [address] Dr. Ember Teague Calcium [Mass/Vol] 9.5 mg/dL Normal 8.5-10.1 [facility] Comment on above: Performed By: #### P THINT #### [facility] [address] [address] [address] Ember Teague Chloride [Moles/Vol] 102 mmol/L Normal 98-107 [facility] Comment on above: Performed By: #### P THINT #### [facility] [address] [address] [address] Ember Teague CO2 [Moles/Vol] 23.8 mmol/L Normal 21.0-32.[address] [facility] Comment on above: Performed By: #### P THINT #### [facility] [address] [address] [address] Ember Teague Creatinine [Mass/Vol] 1.75 mg/dL Critically high 0.55-1.02 [facility] Comment on above: Performed By: #### P THINT #### [facility] [address] [address] [address] Ember Teague EGFR-AF POLISH 34 mL/min/1.73m2 Critically low >=60 [facility] Comment on above: Performed By: #### P THINT #### [facility] [address] [address] [address] Ember Teague EGFR-NON AF POLISH 28 mL/min/1.73m2 Critically low >=60 [facility] Comment on above: Performed By: #### P THINT #### [facility] [address] [address] [address] Ember Teague Glucose [Mass/Vol] 199 mg/dL Critically high 74-[address] [facility] Comment on above: Performed By: #### P THINT #### [facility] [address] [address] [address] Ember eTague Phosphate [Mass/Vol] 4.3 mg/dL Normal 2.6-4.7 [facility] Comment on above: Performed By: #### P THINT #### [facility] [address] [address] [address] Ember Teague Potassium [Moles/Vol] 4.9 mmol/L Normal 3.5-5.1 [facility] Comment on above: Performed By: #### P THINT #### [facility] [address] [address] [address] Ember Teague Sodium [Moles/Vol] 135 mmol/L Critically low 136-[address] [facility] Comment on above: Performed By: #### P THINT #### [facility] [address] [address] [address] Ember Teague Urea nitrogen [Mass/Vol] 34.0 mg/dL Critically high 7.0-18.0 [facility] Comment on above: Performed By: #### P THINT #### [facility] [address] [place] [address] Dr. Ember Teague VITAMIN D 25 OHon 06-25-2022 VIT D 25-OH 40.6 ng/mL Normal [facility] Comment on above: Performed By: #### P THINT #### [facility] [address] [place] [address] Dr. Ember Teague VIT D RANGES SEE BELOW Normal [facility] Comment on above: Result Comment: <20 ng/mL Vit D deficient 20 - <30 ng/mL Vit D insufficient 30 - 100 ng/mL Vit D sufficient >100 ng/mL Potential Toxicity Performed By: #### P THINT #### [facility] [address] [place] [address] Dr. Ember Teague Covid-19 PCR (CVDTB)on 06-07 SARS-CoV-2 (COVID-19) RNA ALEXX+probe Ql (Unsp spec) Not detected Normal NOT DETECTED [facility] Comment on above: Result Comment: This test is not yet approved or cleared by the [place] FDA. When there are no FDA-approved or cleared tests available, and other criteria are met, FDA can make tests available under an emergency access mechanism called an Emergency Use Authorization (EUA). The EUA for this test is supported by the [place] of Health and Human Service's (HHS's) declaration [...] SARS-CoV-2. Performed By: #### C VDTBH #### [facility] [address] [place] [address] LSPINE WO CONon [...] by: YANET HUERTA Date: 2022-06-01 18:02 Normal [facility] XR LSPINE MIN 4 VIEWSon 05-07 [...] YANET HUERTA Date: 2022-05-21 15:25 Normal [facility] PTH INTACTon 05-03-2022 PTH, Intact 60 pg/mL Normal 15-65 [facility] Comment on above: Performed By: #### C VDTBH #### [facility] [address] [address] [address] Ember Teague VIT D 25-OH LABCORPon 2021 Vitamin D, 25-Hydroxy 26.1 ng/mL Critically low 30.0-100.0 [facility] Comment on above: Result Comment: Sara min D deficiency has been defined by the [place] of Medicine and an Endocrine Society practice guideline as a level of serum 25-OH vitamin D less than 20 ng/mL (1,2). The Endocrine Society went on to further define vitamin D insufficiency as a level between 21 and 29 ng/mL (2). 1. IOM ([place] of Medicine). 2010. Dietary reference intakes for calcium and D. [place]: The National Academies Press. 2. Sherice MF, Wendy WILSON, Huan ZHONG, et al. Evaluation, treatment, and prevention of vitamin D deficiency: an Endocrine Society clinical practice guideline. JCEM. 2010; 96(7):1911-30. Performed By: #### R ENAL #### [facility] [address] [address] [address] Ember Teague FERRITINon 05-02-2022 Ferritin [Mass/Vol] 590.0 ng/mL Critically high 8.0-252.0 [facility] Comment on above: Performed By: #### R ENAL #### [facility] [address] [address] [address] Ember Teague HEMOGRAM AND PLATELon 2021 Hematocrit (Bld) [Volume fraction] 28.4 % Critically low 36.0-48.0 [facility] Comment on above: Performed By: #### C VDTBH #### [facility] [address] [address] [address] Ember Teague Hemoglobin (Bld) [Mass/Vol] 9.6 g/dL Critically low 12.0-16.0 [facility] Comment on above: Performed By: #### C VDTBH #### [facility] [address] [place] [address] Dr. Ember Teague MCH (RBC) [Entitic mass] 31.0 pg Normal 26.7-34.0 [facility] Comment on above: Performed By: #### C VDTBH #### [facility] [address] [place] [address] Dr. Ember Teague MCHC (RBC) [Mass/Vol] 33.8 g/dL Normal 29.9-35.2 [facility] Comment on above: Performed By: #### C VDTBH #### [facility] [address] [place] [address] Dr. Ember Teague MCV (RBC) [Entitic vol] 91.6 fL Normal 81.0-99.0 [facility] Comment on above: Performed By: #### C VDTBH #### [facility] [address] [place] [address] Dr. Ember Teague PLT 189 103/ul Normal 150-450 [facility] Comment on above: Performed By: #### C VDTBH #### [facility] [address] [place] [address] Dr. Ember Teague RBC 3.10 106/ul Critically low 4.20-5.40 [facility] Comment on above: Performed By: #### C VDTBH #### [facility] [address] [place] [address] Dr. Ember Teague WBC 6.2 103/ul Normal 4.0-11.0 [facility] Comment on above: Performed By: #### C VDTBH #### [facility] [address] [place] [address] Dr. Ember Teague IRON AND TIBCon 05-02-2022 % SATURATION 34.3 % Normal [facility] Comment on above: Performed By: #### R ENAL #### [facility] [address] [place] [address] Dr. Ember Teague Iron [Mass/Vol] 69.0 ug/dL Normal 50.0-170.0 [facility] Comment on above: Performed By: #### R ENAL #### [facility] [address] [place] [address] Dr. Ember Teague TIBC DIRECT 201.0 ug/dL Critically low 250.0-450.0 [facility] Comment on above: Performed By: #### R ENAL #### [facility] [address] [place] [address] Dr. Ember Teague MAGNESIUMon 05-02-2022 Magnesium [Mass/Vol] 1.7 mg/dL Critically low 1.8-2.4 [facility] Comment on above: Performed By: #### C VDTBH #### [facility] [address] [place] [address] Dr. Ember Teague RENAL FUNCTION PANELon 05-02 Albumin [Mass/Vol] 3.6 g/dL Normal 3.4-5.0 [facility] Comment on above: Performed By: #### C VDTBH #### [facility] [address] [place] [address] Dr. Ember Teague Calcium [Mass/Vol] 9.2 mg/dL Normal 8.5-10.1 [facility] Comment on above: Performed By: #### C VDTBH #### [facility] [address] [place] [address] Dr. Ember Teague Chloride [Moles/Vol] 107 mmol/L Normal 98-107 [facility] Comment on above: Performed By: #### C VDTBH #### [facility] [address] [place] [address] Dr. Ember Teague CO2 [Moles/Vol] 21.2 mmol/L Normal 21.0-32.[address] [facility] Comment on above: Performed By: #### C VDTBH #### [facility] [address] [place] [address] Dr. Ember Teague Creatinine [Mass/Vol] 1.75 mg/dL Critically high 0.55-1.02 [facility] Comment on above: Performed By: #### C VDTBH #### [facility] [address] [place] [address] Dr. Ember Teague EGFR-AF POLISH 34 mL/min/1.73m2 Critically low >=60 [facility] Comment on above: Performed By: #### C VDTBH #### [facility] [address] [place] [address] Dr. Ember Teague EGFR-NON AF POLISH 28 mL/min/1.73m2 Critically low >=60 [facility] Comment on above: Performed By: #### C VDTBH #### [facility] [address] [address] [address] Ember Teague Glucose [Mass/Vol] 193 mg/dL Critically high 74-[address] [facility] Comment on above: Performed By: #### C VDTBH #### [facility] [address] [place] [address] Dr. Ember Teague Phosphate [Mass/Vol] 4.2 mg/dL Normal 2.6-4.7 [facility] Comment on above: Performed By: #### C VDTBH #### [facility] [address] [place] [address] Dr. Ember Teague Potassium [Moles/Vol] 5.1 mmol/L Normal 3.5-5.1 [facility] Comment on above: Performed By: #### C VDTBH #### [facility] [address] [place] [address] Dr. Ember Teague Sodium [Moles/Vol] 139 mmol/L Normal 136-145 [facility] Comment on above: Performed By: #### C VDTBH #### [facility] [address] [place] [address] Dr. Ember Teague Urea nitrogen [Mass/Vol] 34.0 mg/dL Critically high 7.0-18.0 [facility] Comment on above: Performed By: #### C VDTBH #### [facility] [address] [place] [address] Dr. Ember Teague UA RANDOM W/MICROSCOPICon BACTERIA SMALL Abnormal NONE SEEN [facility] Comment on above: Performed By: #### C VDTBH #### [facility] [address] [place] [address] Dr. Ember Teague Bilirubin Ql (U) Negative Normal NEGATIVE [facility] Comment on above: Performed By: #### C VDTBH #### [facility] [address] [place] [address] Dr. Ember Teague CAST NONE SEEN Normal NONE SEEN [facility] Comment on above: Performed By: #### C VDTBH #### [facility] [address] [place] [address] Dr. Ember Teague Clarity (U) CLEAR Normal CLEAR [facility] Comment on above: Performed By: #### C VDTBH #### [facility] [address] [place] [address] Dr. Ember Teague Color (U) LT. YELLOW Normal YELLOW [facility] Comment on above: Performed By: #### C VDTBH #### [facility] [address] [place] [address] Dr. Ember Teague Crystals LM Nom (Urine sed) NONE SEEN Normal NONE SEEN [facility] Comment on above: Performed By: #### C VDTBH #### [facility] [address] [place] [address] Dr. Ember Teague Epithelial cells LM Ql (Urine sed) MODERATE Abnormal NONE SEEN /RARE [facility] Comment on above: Performed By: #### C VDTBH #### [facility] [address] [place] [address] Dr. Ember Teague Glucose Ql (U) Negative Normal NEGATIVE [facility] Comment on above: Performed By: #### C VDTBH #### [facility] [address] [place] [address] Dr. Ember Teague Hemoglobin Ql (U) Negative Normal NEGATIVE [facility] Comment on above: Performed By: #### C VDTBH #### [facility] [address] [place] [address] Dr. Ember Teague Ketones Ql (U) Negative Normal NEGATIVE [facility] Comment on above: Performed By: #### C VDTBH #### [facility] [address] [place] [address] Dr. Ember Teague LEUKOCYTES TRACE Abnormal NEGATIVE [facility] Comment on above: Performed By: #### C VDTBH #### [facility] [address] [place] [address] Dr. Ember Teague MUCOUS NONE SEEN Normal NONE SEEN [facility] Comment on above: Performed By: #### C VDTBH #### [facility] [address] [place] [address] Dr. Ember Teague Nitrite Ql (U) Negative Normal NEGATIVE [facility] Comment on above: Performed By: #### C VDTBH #### [facility] [address] [place] [address] Dr. Ember Teague pH (U) 5.0 [pH] Normal 5-9 [facility] Comment on above: Performed By: #### C VDTBH #### [facility] [address] [place] [address] Dr. Ember Teague RBC NONE SEEN Abnormal 0-2 [facility] Comment on above: Performed By: #### C VDTBH #### [facility] [address] [place] [address] Dr. Ember Teague SPEC GRAVITY 1.015 Normal 1.005-<=1.025 [facility] Comment on above: Performed By: #### C VDTBH #### [facility] [address] [place] [address] Dr. Ember Teague UA PROTEIN TRACE Normal NEGATIVE/ TRACE [facility] Comment on above: Performed By: #### C VDTBH #### [facility] [address] [place] [address] Dr. Ember Teague Urobilinogen Qn (U) 0.2 {Esau'U}/dL Normal 0.2 - 1. 0 [facility] Comment on above: Performed By: #### C VDTBH #### [facility] [address] [place] [address] Dr. Ember Teague WBC 0-2 Abnormal NONE SEEN [facility] Comment on above: Performed By: #### C VDTBH #### [facility] [address] [place] [address] Dr. Ember Teague URIC ACID SERUMon 05-02-2022 Urate [Mass/Vol] 4.4 mg/dL Normal 2.6-6.[address] [facility] Comment on above: Performed By: #### C BC #### [facility] [address] [place] [address] Dr. Ember Teague URINE T PROTEIN CREAT RATIOo n 05-02-2022 Protein (U) [Mass/Vol] 33.7 mg/dL Critically high <=12.0 [facility] Comment on above: Performed By: #### C VDTBH #### [facility] [address] [address] [address] Ember Teague UR PROT CREAT RAT 0.69 Normal [facility] Comment on above: Performed By: #### C VDTBH #### [facility] [address] [address] [address] Ember Teague URINE CREAT 48.93 mg/dL Normal 20.00-300.[address] [facility] Comment on above: Performed By: #### C VDTBH #### [facility] [address] [address] [address] Ember Teague Vital Signs Date Time Vital Sign Value Performing Clinician Facility 11-18-2023 10:00-0500 Body height 168.91 cm Ron [place] Other [employer] [facility] [employer] Other 11-18-2023 10:00-0500 Body mass index (BMI) [Ratio] 29.85 kg/m2 Ron [place] Other [employer] Other 11-18-2023 10:00-0500 Body temperature 97.3 [degF] Ron [place] Other [employer] Other 11-18-2023 10:00-0500 Body weight 85.19 kg Ron [place] Other [employer] Other 11-18-2023 10:00-0500 Diastolic blood pressure 79 mm[Hg] Ron [place] Other [employer] Other 11-18-2023 10:00-0500 Respiratory rate 18 /min Ron [place] Other [employer] Other 11-18-2023 10:00-0500 SaO2% (BldA) [Mass fraction] 98 % Ron [place]en Other [employer] Other 11-18-2023 10:00-0500 Systolic blood pressure 149 mm[Hg] Ron [place]en Other [employer] Other 11-04-2023 11:00-0500 Body height 168.91 cm Ron [place] Other [employer] Other 11-04-2023 11:00-0500 Body mass index (BMI) [Ratio] 30.17 kg/m2 Ron [place] Other [employer] Other 11-04-2023 11:00-0500 Body temperature 97.6 [degF] Ron [place] Other [employer] Other 11-04-2023 11:00-0500 Body weight 86.09 kg Ron [place]en Other [employer] Other 11-04-2023 11:00-0500 Diastolic blood pressure 76 mm[Hg] Ron [place] Other [employer] Other 11-04-2023 11:00-0500 Respiratory rate 18 /min Ron [place] Other [employer] Other 11-04-2023 11:00-0500 SaO2% (BldA) [Mass fraction] 98 % Ron [place] Other [employer] Other 11-04-2023 11:00-0500 Systolic blood pressure 153 mm[Hg] Ron [place]en Other [employer] Other 10-15-2023 13:00-0500 Body height 168.91 cm Ron [place] Other [employer] Other 10-15-2023 13:00-0500 Body mass index (BMI) [Ratio] 29.82 kg/m2 Ron [place] Other [employer] Other 10-15-2023 13:00-0500 Body temperature 97.5 [degF] Ron [place] Other [employer] Other 10-15-2023 13:00-0500 Body weight 85.1 kg Ron [place]en Other [employer] Other 10-15-2023 13:00-0500 Diastolic blood pressure 68 mm[Hg] Ron [place] Other [employer] Other 10-15-2023 13:00-0500 Respiratory rate 18 /min Ron [place] Other [employer] Other 10-15-2023 13:00-0500 SaO2% (BldA) [Mass fraction] 98 % Ron [place] Other [employer] Other 10-15-2023 13:00-0500 Systolic blood pressure 113 mm[Hg] Ron [place]en Other [employer] Other 08-27-2023 09:40-0500 Body height 168.91 cm [employer] Other [employer] Other 08-27-2023 09:40-0500 Body mass index (BMI) [Ratio] 30.2 kg/m2 Azduc Bakhous Other [employer] Other 08-27-2023 09:40-0500 Body temperature 96.7 [degF] [employer]duc Mensahs Other [employer] Other 08-27-2023 09:40-0500 Body weight 86.18 kg [employer]duc Shaferhous Other [employer] Other 08-27-2023 09:40-0500 Diastolic blood pressure 72 mm[Hg] Aziz Rodricks Other [employer] Other 08-27-2023 09:40-0500 Respiratory rate 18 /min Azduc Bakhous Other [employer] Other 08-27-2023 09:40-0500 SaO2% (BldA) [Mass fraction] 98 % Azduc Bakhous Other [employer] Other 08-27-2023 09:40-0500 Systolic blood pressure 153 mm[Hg] Aziz Bakhous Other [employer] Other 08-15-2023 10:20-0500 Body height 168.91 cm Ron [place] Other [employer] Other 08-15-2023 10:20-0500 Body mass index (BMI) [Ratio] 30.2 kg/m2 Ron [place]en Other [employer] Other 08-15-2023 10:20-0500 Body temperature 97.1 [degF] Ron [place]en Other [employer] Other 08-15-2023 10:20-0500 Body weight 86.18 kg Ron [place]en Other [employer] Other 08-15-2023 10:20-0500 Diastolic blood pressure 79 mm[Hg] Ron [place]en Other [employer] Other 08-15-2023 10:20-0500 Respiratory rate 18 /min Ron [place]en Other [employer] Other 08-15-2023 10:20-0500 SaO2% (BldA) [Mass fraction] 98 % Ron [place]en Other [employer] Other 08-15-2023 10:20-0500 Systolic blood pressure 164 mm[Hg] Ron [place]en Other [employer] Other 08-13-2023 15:40-0500 Body height 168.91 cm Ron [place]en Other [employer] Other 08-13-2023 15:40-0500 Body mass index (BMI) [Ratio] 30.24 kg/m2 Ron [place]en Other [employer] Other 08-13-2023 15:40-0500 Body temperature 97.2 [degF] Ron [place]en Other [employer] Other 08-13-2023 15:40-0500 Body weight 86.27 kg Ron [place]en Other [employer] Other 08-13-2023 15:40-0500 Diastolic blood pressure 79 mm[Hg] Ron D[place]en Other [employer] Other 08-13-2023 15:40-0500 Respiratory rate 18 /min Ron [place]en Other [employer] Other 08-13-2023 15:40-0500 SaO2% (BldA) [Mass fraction] 98 % Ron [place]en Other [employer] Other 08-13-2023 15:40-0500 Systolic blood pressure 186 mm[Hg] Ron D[place]en Other [employer] Other 08-01-2023 13:00-0400 Body height 168.91 cm Ron [place]en Other [employer] Other 08-01-2023 13:00-0400 Body mass index (BMI) [Ratio] 30.55 kg/m2 Ron D[place]en Other [employer] Other 08-01-2023 13:00-0400 Body temperature 97.8 [degF] Ron [place]en Other [employer] Other 08-01-2023 13:00-0400 Body weight 87.18 kg Ron D[place]en Other [employer] Other 08-01-2023 13:00-0400 Diastolic blood pressure 72 mm[Hg] Ron D[place]en Other [employer] Other 08-01-2023 13:00-0400 Respiratory rate 18 /min Ron D[place]en Other [employer] Other 08-01-2023 13:00-0400 SaO2% (BldA) [Mass fraction] 98 % Ron [place]en Other [employer] Other 08-01-2023 13:00-0400 Systolic blood pressure 160 mm[Hg] Ron D[place]en Other [employer] Other 06-24-2023 11:40-0400 Body height 168.91 cm Ron [place]en Other [employer] Other 06-24-2023 11:40-0400 Body mass index (BMI) [Ratio] 29.89 kg/m2 Ron D[place]en Other [employer] Other 06-24-2023 11:40-0400 Body temperature 97.3 [degF] Ron D[place]en Other [employer] Other 06-24-2023 11:40-0400 Body weight 85.28 kg Ron D[place]en Other [employer] Other 06-24-2023 11:40-0400 Diastolic blood pressure 75 mm[Hg] Ron D[place]en Other [employer] Other 06-24-2023 11:40-0400 Respiratory rate 18 /min Ron D[place]en Other [employer] Other 06-24-2023 11:40-0400 SaO2% (BldA) [Mass fraction] 99 % Ron D[place]en Other [employer] Other 06-24-2023 11:40-0400 Systolic blood pressure 129 mm[Hg] Ron D[place]en Other [employer] Other 06-06-2023 15:20-0400 Body height 168.91 cm Ron [place]en Other [employer] Other 06-06-2023 15:20-0400 Body mass index (BMI) [Ratio] 29.92 kg/m2 Ron D[place]en Other [employer] Other 06-06-2023 15:20-0400 Body temperature 96.5 [degF] Ron D[place]en Other [employer] Other 06-06-2023 15:20-0400 Body weight 85.37 kg Ron D[place]en Other [employer] Other 06-06-2023 15:20-0400 Diastolic blood pressure 49 mm[Hg] Ron Doreen Other [employer] Other 06-06-2023 15:20-0400 Respiratory rate 18 /min Ron D[place]en Other [employer] Other 06-06-2023 15:20-0400 SaO2% (BldA) [Mass fraction] 99 % Ron Doreen Other [employer] Other 06-06-2023 15:20-0400 Systolic blood pressure 128 mm[Hg] Ron Doreen Other [employer] Other 04-30-2023 11:40-0400 Body height 168.91 cm Ron D[place]en Other [employer] Other 04-30-2023 11:40-0400 Body mass index (BMI) [Ratio] 30.52 kg/m2 Ron Doreen Other [employer] Other 04-30-2023 11:40-0400 Body temperature 96.9 [degF] Ron Doreen Other [employer] Other 04-30-2023 11:40-0400 Body weight 87.09 kg Ron Doreen Other [employer] Other 04-30-2023 11:40-0400 Diastolic blood pressure 80 mm[Hg] Ron Doreen Other [employer] Other 04-30-2023 11:40-0400 Respiratory rate 18 /min Ron Doreen Other [employer] Other 04-30-2023 11:40-0400 SaO2% (BldA) [Mass fraction] 98 % Ron Odreen Other [employer] Other 04-30-2023 11:40-0400 Systolic blood pressure 150 mm[Hg] Ron Doreen Other [employer] Other 04-06-2023 09:00-0400 Body height 168.91 cm Ron D[place]en Other [employer] Other 04-06-2023 09:00-0400 Body mass index (BMI) [Ratio] 30.36 kg/m2 Ron Doreen Other [employer] Other 04-06-2023 09:00-0400 Body weight 86.64 kg Ron Doreen Other [employer] Other 04-06-2023 09:00-0400 Diastolic blood pressure 54 mm[Hg] Ron Doreen Other [employer] Other 04-06-2023 09:00-0400 Respiratory rate 18 /min Ron Doreen Other [employer] Other 04-06-2023 09:00-0400 SaO2% (BldA) [Mass fraction] 98 % Ron Doreen Other [employer] Other 04-06-2023 09:00-0400 Systolic blood pressure 144 mm[Hg] Ron Doreen Other [employer] Other 04-02-2023 14:40-0400 Body height 168.91 cm Ron [place]en Other [employer] Other 04-02-2023 14:40-0400 Body mass index (BMI) [Ratio] 30.55 kg/m2 Ron Doreen Other [facility] Other 04-02-2023 14:40-0400 Body temperature 97 [degF] Ron Doreen Other [facility] Other 04-02-2023 14:40-0400 Body weight 87.18 kg Ron Doreen Other [facility] Other 04-02-2023 14:40-0400 Diastolic blood pressure 76 mm[Hg] Ron Doreen Other [facility] Other 04-02-2023 14:40-0400 Respiratory rate 18 /min Ron Doreen Other [facility] Other 04-02-2023 14:40-0400 SaO2% (BldA) [Mass fraction] 98 % Ron Doreen Other [facility] Other 04-02-2023 14:40-0400 Systolic blood pressure 183 mm[Hg] Ron Doreen Other [facility] Other 03-07-2023 09:20-0400 Body height 168.91 cm Ron Doreen Other [facility] Other 03-07-2023 09:20-0400 Body mass index (BMI) [Ratio] 30.52 kg/m2 Ron Doreen Other [facility] Other 03-07-2023 09:20-0400 Body temperature 97.1 [degF] Ron Doreen Other [facility] Other 03-07-2023 09:20-0400 Body weight 87.09 kg Ron Doreen Other [facility] Other 03-07-2023 09:20-0400 Diastolic blood pressure 72 mm[Hg] Ron Doreen Other [facility] Other 03-07-2023 09:20-0400 Respiratory rate 18 /min Ron Doreen Other [facility] Other 03-07-2023 09:20-0400 SaO2% (BldA) [Mass fraction] 97 % Ron Doreen Other [facility] Other 03-07-2023 09:20-0400 Systolic blood pressure 130 mm[Hg] Ron Doreen Other [facility] Other 12-20-2022 13:20-0400 Body height 168.91 cm Ron Doreen Other [facility] Other 12-20-2022 13:20-0400 Body mass index (BMI) [Ratio] 30.68 kg/m2 Ron Doreen Other [facility] Other 12-20-2022 13:20-0400 Body temperature 97.1 [degF] Ron Doreen Other [facility] Other 12-20-2022 13:20-0400 Body weight 87.54 kg Ron Doreen Other [facility] Other 12-20-2022 13:20-0400 Diastolic blood pressure 72 mm[Hg] Ron Doreen Other [facility] Other 12-20-2022 13:20-0400 Respiratory rate 18 /min Ron Doreen Other [facility] Other 12-20-2022 13:20-0400 SaO2% (BldA) [Mass fraction] 99 % Ron Doreen Other [facility] Other 12-20-2022 13:20-0400 Systolic blood pressure 139 mm[Hg] Ron Doreen Other [facility] Other 11-05-2022 14:00-0500 Body height 168.91 cm Ron Doreen Other [facility] Other 11-05-2022 14:00-0500 Body mass index (BMI) [Ratio] 30.59 kg/m2 Ron Doreen Other [facility] Other 11-05-2022 14:00-0500 Body temperature 96.8 [degF] Orn Doreen Other [facility] Other 11-05-2022 14:00-0500 Body weight 87.27 kg Ron Doreen Other [facility] Other 11-05-2022 14:00-0500 Diastolic blood pressure 72 mm[Hg] Ron Doreen Other [facility] Other 11-05-2022 14:00-0500 Respiratory rate 18 /min Ron Doreen Other [facility] Other 11-05-2022 14:00-0500 SaO2% (BldA) [Mass fraction] 98 % Ron Doreen Other [facility] Other 11-05-2022 14:00-0500 Systolic blood pressure 157 mm[Hg] Ron Doreen Other [facility] Other 09-27-2022 16:00-0500 Body height 168.91 cm Jana Monson Other [facility] Other 09-27-2022 16:00-0500 Body mass index (BMI) [Ratio] 30.55 kg/m2 Jana Monson Other [facility] Other 09-27-2022 16:00-0500 Body temperature 96.8 [degF] Jana Monson Other [facility] Other 09-27-2022 16:00-0500 Body weight 87.18 kg Jana Monson Other [facility] Other 09-27-2022 16:00-0500 Diastolic blood pressure 73 mm[Hg] Jana Monson Other [facility] Other 09-27-2022 16:00-0500 Respiratory rate 18 /min Jana Monson Other [facility] Other 09-27-2022 16:00-0500 SaO2% (BldA) [Mass fraction] 98 % Jana Monson Other [facility] Other 09-27-2022 16:00-0500 Systolic blood pressure 159 mm[Hg] Jana Monson Other [facility] Other 08-22-2022 12:00-0500 Body height 168.91 cm Ron Doreen Other [facility] Other 08-22-2022 12:00-0500 Body mass index (BMI) [Ratio] 30.65 kg/m2 Ron Doreen Other [facility] Other 08-22-2022 12:00-0500 Body temperature 96.9 [degF] Ron Doreen Other [facility] Other 08-22-2022 12:00-0500 Body weight 87.45 kg Ron Doreen Other [facility] Other 08-22-2022 12:00-0500 Diastolic blood pressure 75 mm[Hg] Ron Doreen Other [facility] Other 08-22-2022 12:00-0500 Respiratory rate 18 /min Ron Doreen Other [facility] Other 08-22-2022 12:00-0500 SaO2% (BldA) [Mass fraction] 96 % Ron Doreen Other [facility] Other 08-22-2022 12:00-0500 Systolic blood pressure 121 mm[Hg] Ron Doreen Other [facility] Other 05-08-2022 10:20-0400 Body height 168.91 cm Ron Doreen Other [facility] Other 05-08-2022 10:20-0400 Body mass index (BMI) [Ratio] 31.54 kg/m2 Ron Doreen Other [facility] Other 05-08-2022 10:20-0400 Body temperature 97.6 [degF] Ron Doreen Other [facility] Other 05-08-2022 10:20-0400 Body weight 89.99 kg Rno Doreen Other [facility] Other 05-08-2022 10:20-0400 Diastolic blood pressure 68 mm[Hg] Ron Doreen Other [facility] Other 05-08-2022 10:20-0400 Respiratory rate 18 /min Ron Doreen Other [facility] Other 05-08-2022 10:20-0400 SaO2% (BldA) [Mass fraction] 98 % Ron Doreen Other [facility] Other 05-08-2022 10:20-0400 Systolic blood pressure 131 mm[Hg] Ron Doreen Other [facility] Other 01-18-2022 10:20-0400 Body height 168.91 cm Ron Doreen Other [facility] Other 01-18-2022 10:20-0400 Body mass index (BMI) [Ratio] 31 kg/m2 Ron Doreen Other [facility] Other 01-18-2022 10:20-0400 Body temperature 96.4 [degF] Ron Doreen Other [facility] Other 01-18-2022 10:20-0400 Body weight 88.45 kg Ron Doreen Other [facility] Other 01-18-2022 10:20-0400 Diastolic blood pressure 74 mm[Hg] Ron Doreen Other [facility] Other 01-18-2022 10:20-0400 Respiratory rate 18 /min Ron Doreen Other [facility] Other 01-18-2022 10:20-0400 SaO2% (BldA) [Mass fraction] 97 % Ron Doreen Other [facility] Other 01-18-2022 10:20-0400 Systolic blood pressure 170 mm[Hg] Ron Doreen Other [facility] Other Encounters Encounter Date Encounter Type Care Provider Facility Start: 12-21-2023 Refill Luis dominique PA-C Work Phone: [facility] Comment on above: Med Refill Start: 11-28-2023 End: 11-28-2023 ambulatory GREG COLLADOSOFIYA Not Available Start: 11-18-2023 End: 11-18-2023 ambulatory Ron Doreen Other [facility] Other Start: 11-18-2023 Office outpatient visit 15 minutes Ron Doreen [facility] Start: 11-05-2023 End: 11-05-2023 ambulatory GA CRESPO Not Available Start: 11-04-2023 (INJECTION) INJECTION [facility] D[facility]en [facility] Start: 11-04-2023 End: 11-04-2023 ambulatory Ron Doreen Other [facility] Other Start: 10-22-2023 End: 10-22-2023 ambulatory GA H CRESPO Not Available Start: 10-15-2023 End: 10-15-2023 ambulatory Ron Doreen Other [facility] Other Start: 10-15-2023 Office outpatient visit 15 minutes Ron Doreen [facility] Start: 10-08-2023 End: 10-08-2023 ambulatory Mary Anne Ackerman Other [facility] Other Start: 10-08-2023 Telephone encounter Mary Anne Ackerman [facility] Start: 09-15-2023 End: 09-15-2023 ambulatory Ron Doreen Other [facility] Other Start: 09-15-2023 Telephone encounter Ron Doreen [facility] Start: 09-09-2023 End: 09-09-2023 ambulatory Ron Doreen Other [facility] Other Start: 09-09-2023 Telephone encounter Ron Doreen [facility] Start: 08-27-2023 (INJECTION) INJECTION Aziz Bakhous [facility] Start: 08-27-2023 End: 08-27-2023 ambulatory Aziz Bakhous Other [facility] Other Start: 08-15-2023 (INJECTION) INJECTION [facility] D[facility] Start: 08-15-2023 End: 08-15-2023 ambulatory Ron Doreen Other [facility] Other Start: 08-13-2023 (INJECTION) INJECTION [facility] Start: 08-13-2023 End: 08-13-2023 ambulatory Ron Doreen Other [facility] Other Start: 08-01-2023 End: 08-01-2023 ambulatory Ron Doreen Other [facility] Other Start: 08-01-2023 Office outpatient visit 15 minutes Ron Doreen [facility] Start: 06-24-2023 End: 06-24-2023 ambulatory Ron Doreen Other [facility] Other Start: 06-24-2023 Office outpatient visit 10 minutes Ron Doreen [facility] Start: 06-06-2023 End: 06-06-2023 ambulatory Ron Doreen Other [facility] Other Start: 06-06-2023 Office outpatient visit 15 minutes Ron Doreen [facility] Start: 04-30-2023 End: 04-30-2023 ambulatory Ron Doreen Other [facility] Other Start: 04-30-2023 Office outpatient visit 15 minutes Ron Doreen [facility] Start: 04-06-2023 (INJECTION) INJECTION [facility] Start: 04-06-2023 End: 04-06-2023 ambulatory Ron Doreen Other [facility] Other Start: 04-06-2023 Telephone encounter Ron Doreen [facility] Start: 04-02-2023 End: 04-02-2023 ambulatory Ron Doreen Other [facility] Other Start: 04-02-2023 Office outpatient visit 15 minutes Ron Doreen [facility] Start: 04-02-2023 Telephone encounter Ron Doreen [facility] Start: 03-07-2023 End: 03-07-2023 ambulatory Ron Doreen Other [facility] Other Start: 03-07-2023 Office outpatient visit 15 minutes Ron Doreen [facility] Start: 01-22-2023 End: 01-23-2023 ambulatory RON DOREEN Facility:[facility] Start: 12-20-2022 End: 12-20-2022 ambulatory Ron Doreen Other [facility] Other Start: 12-20-2022 Office outpatient visit 15 minutes Ron Doreen [facility] Start: 12-17-2022 End: 12-18-[address] DHRUV RUBI . Facility:[facility] Start: 12-10-2022 End: 12-11-2022 ambulatory RON DOREEN Facility:[facility] Start: 11-20-2022 End: 11-21-[address] BENI APARICIO Facility:[facility] Start: 11-05-2022 End: 11-05-2022 ambulatory Ron Doreen Other [facility] Other Start: 11-05-2022 Office outpatient visit 15 minutes Ron Doreen [facility] Start: 10-29-2022 End: 10-30-[address] JANA MONSON Facility:[facility] Start: 10-24-2022 End: 10-24-[address] LILLIAN ACOSTA . Facility:[facility] Start: 10-24-2022 End: 10-25-[address] DHRUV RUBI . Facility:[facility] Start: 09-27-2022 End: 09-27-2022 ambulatory Jana Monson Other [facility] Other Start: 09-27-2022 Office outpatient visit 15 minutes Jana Monson [facility] Start: 09-18-2022 End: 09-19-2022 ambulatory RON DOREEN Facility:[facility] Start: 09-11-2022 End: 09-11-[address] DHRUV RUBI . Facility:[facility] Start: 08-22-2022 End: 08-22-2022 ambulatory Ron Doreen Other [facility] Other Start: 08-22-2022 Office outpatient visit 15 minutes Ron Doreen [facility] Start: 08-13-2022 End: 08-14-2022 ambulatory RON DOREEN Facility:[facility] Start: 06-25-2022 End: 06-26-[address] DHRUV RUBI . Facility:[facility] Start: 06-18-2022 End: 06-18-[address] DHRUV RUBI . Facility:[facility] Start: 06-01-2022 End: 06-02-[address] YANET HUERTA Facility:[facility] Start: 05-28-2022 End: 05-28-2022 ambulatory Ron Doreen Other [facility] Other Start: 05-28-2022 Telephone encounter Ron Doreen [facility] Start: 05-21-2022 End: 05-22-[address] DHRUV RUBI . Facility: Start: 05-16-2022 End: 05-16-2022 ambulatory Ron Doreen Other [facility] Other Start: 05-16-2022 Telephone encounter Ron Doreen [facility] Start: 05-10-2022 End: 05-10-2022 ambulatory Ron Doreen Other [facility] Other Start: 05-10-2022 Telephone encounter Ron Doreen [facility] Start: 05-08-2022 End: 05-08-2022 ambulatory Ron Doreen Other [facility] Other Start: 05-08-2022 Office outpatient visit 25 minutes Ron Doreen [facility] Start: 05-02-2022 End: 05-03-2022 ambulatory RON DOREEN Facility:[facility] Start: 04-24-2022 End: 04-24-2022 ambulatory Aziz Bakhous Other [facility] Other Start: 04-24-2022 Telephone encounter Aziz Bakhous [facility] Start: 01-18-2022 End: 01-18-2022 ambulatory Ron Doreen Other [facility] Other Start: 01-18-2022 Office outpatient visit 25 minutes Ron Doreen [facility] Start: 05-21-2017 End: 05-22-2017 Ambulatory DEFAULT PHYSICIAN Facility:[facility] Procedures Date Procedure Procedure Detail Performing Clinician [...] 03-19-2024 Adult BMI Screening Adult BMI Screening [facility] Start: 03-19-2024 Tobacco Screening Tobacco Screening [facility] Start: 06-07-2023 COVID-19 Vaccine () COVID-19 Vaccine ( season) [facility] Start: 06-07-2023 Influenza vaccination Influenza Vaccine [facility] Start: 12-28-2021 Depression Screening Depression Screening [facility] Start: 2009 Fall Risk Screening Fall Risk Screening [facility] Start: 1994 Administration of varicella zoster vaccine Zoster (Shingles) Vaccine (1 of 2) [facility] Start: 12-15-1963 DTaP,Tdap and Td Vaccines (1 - Tdap) DTaP,Tdap and Td Vaccines (1 - Tdap) [facility] Start: 1962 Adult BMI Follow Up Plan Adult BMI Follow Up Plan [facility] Start: 1944 Medicare Annual Wellness Visit Medicare Annual Wellness Visit [facility] Immunizations Immunization Date Immunization Notes Care Provider Fa cili 07-18-2020 Seasonal trivalent influenza vaccine, adjuvanted, preservative free Luis Quiles PA-C Work Phone: [facility] 07-18-2020 influenza virus vacc ine, unspecified formulation Luis Quiles PA-C Work Phone: [facility] 07-22-2019 Seasonal trivalent influenza vaccine, adjuvanted, preservative free Luis Quiles PA-C Work Phone: [facility] 07-14-2018 Seasonal trivalent influenza vaccine, adjuvanted, preservative free Luis Quiles PA-C Work Phone: [facility] 07-15-2017 pneumococcal conjuga te vaccine, 13 valent Luis Quiles PA-C Work Phone: [facility] 07-08-2017 influenza, high dose seasonal, preservative-free Luis Kb PA-C Work Phone: [facility] 07-25-2016 influenza, high dose seasonal, preservative-free Luis Kb PA-C Work Phone: [facility] 07-11-2015 influenza, high dose seasonal, preservative-free Luis Kb PA-C Work Phone: [facility] 07-16-2014 influenza, seasonal, injectable Luis Kb PA-C Work Phone: [facility] 07-10-2013 influenza, seasonal, injectable Luis Kb PA-C Work Phone: [facility] 08-08-2012 influenza virus vacc ine, unspecified formulation Luis Kb PA-C Work Phone: [facility] 08-08-2012 pneumococcal polysaccharide vaccine, 23 valent Luis Kb PA-C Work Phone: [facility] 07-11-2011 influenza virus vacc ine, unspecified formulation Luis Kb PA-C Work Phone: [facility] 08-15-2010 influenza virus vacc ine, unspecified formulation Luis Kb PA-C Work Phone: [facility] 07-26-2009 influenza virus vacc ine, unspecified formulation Luis Kb PA-C Work Phone: [facility] 08-04-2008 influenza virus vacc ine, unspecified formulation Luis Kb PA-C Work Phone: [facility] 08-13-2007 influenza virus vacc ine, unspecified formulation Luis Kb PA-C Work Phone: [facility] 08-11-2004 influenza virus vacc ine, unspecified formulation Luis Kb PA-C Work Phone: [facility] 08-09-2003 influenza virus vacc ine, unspecified formulation Luis Kb PA-C Work Phone: [facility] 08-09-2003 pneumococcal polysaccharide vaccine, 23 valent Luis Quiles PA-C Work Phone: [facility] Payers Date Payer Category Payer Medicare [employer] MEDICARE A [employer] MEDICARE PLAN (HMO) [id number] 2021-Present [phone] [address] [place] [address] [id number] 1960 Medicare [id number] 1944 Unknown [id number] [id number] 1944 Unknown [id number] [id number] 1944 Unknown [id number] [id number]3 1944 Unknown [id number] 2.16.840.1.167834.3.579.2.593 1944 Unknown [id number] 2.16.840.1.772084.3.579.2.593 1944 Unknown [id number] 2.16.840.1.489433.3.579.2.593 1944 Unknown [id number] 2.16.840.1.456589.3.579.2.593 1944 Unknown [id number] 2.16.840.1.879173.3.579.2.593 1944 Unknown [id number] 2.16.840.1.588891.3.579.2.593 1944 Unknown [id number] 2.16.840.1.759569.3.579.2.593 1944 Unknown [id number] 2.16.840.1.444506.3.579.2.593 1944 Unknown [id number] 2.16.840.1.689426.3.579.2.593 1944 Unknown [id number] 2.16.840.1.146938.3.579.2.593 1944 Unknown [id number] 2.16.840.1.280508.3.579.2.593 1944 Unknown [id number] 2.16.840.1.589766.3.579.2.593 1944 Unknown [id number] 2.16.840.1.347782.3.579.2.593 1944 Unknown [id number] 2.16.840.1.855777.3.579.2.1259 1944 Unknown [id number] 2.16.840.1.072348.3.579.2.1259 1944 Unknown [id number] [id number] Unknown Social History Date Type Detail Facility Unknown if ever smoked [facility] Other Start: 12-28-2020 End: 03-19-2023 Sex Assigned At [facility] Other Start: 09-20-2022 Tobacco smoking status SDIS Ex-smoker [facility] End: 10-07-1969 History of tobacco use Current smoker [facility] End: 10-07-1969 History of tobacco use Cigarette Smoker [facility] Start: 09-20-2022 Tobacco use and exposure Smokeless tobacco non-user [facility] Start: 03-19-2023 Alcohol intake Ex-drinker (finding) [facility] Start: 12-28-2020 End: 03-19-2023 History of Social function [facility] Do you belong to any clubs or organizations such as uatsdin groups, unions, fraternal or athletic groups, or school groups? No [facility] Are you now , , , , never or living with a partner? [facility] How hard is it for y ou to pay for the very basics like food, housing, medical care, and heating Not hard at all [facility] Do you feel stress - tense, restless, nervous, or anxious, or unable to sleep at night because your mind is troubled all the time - these days [OSQ] Not at all [facility] Start: 1945 Sex Assigned At Not on file [facility] Goals Date Patient Goal Desired [...] potassium improved with dietary restriction and Lasix. [facility] Other 01-29-2024 Evaluation note* Encounter Date Diagnosis Assessment Notes Treatment Notes Treatment Clinical Notes Oct, Anemia of renal disease (ICD-10 - D63.1) Oct, CKD (chronic kidney disease) stage 4, GFR 15-29 ml/min (ICD-10 - N18.4) [facility] Other 01-09-2024 Evaluation note* Encounter Date Diagnosis [...] potassium improved with dietary restriction and Lasix. [facility] Other 12-04-2023 Evaluation note* Encounter Date Diagnosis [...] 4, GFR 15-29 ml/min (ICD-10 - N18.4) [facility] Other 11-21-2023 Evaluation note* Encounter Date Diagnosis Assessment Notes Treatment Notes Treatment Clinical Notes Aug, Anemia of renal disease (ICD-10 - D63.1) Aug, CKD (chronic kidney disease) stage 4, GFR 15-29 ml/min (ICD-10 - N18.4) [facility] Other 11-09-2023 Evaluation note* Encounter Date Diagnosis [...] of kidney mass hydronephrosis or kidney stones. [facility] Other 10-26-2023 Evaluation note* Encounter Date Diagnosis [...] potassium improved with dietary restriction and Lasix. [facility] Other 09-18-2023 Evaluation note* Encounter Date Diagnosis [...] potassium improved with dietary restriction and Lasix. [facility] Other 08-31-2023 Evaluation note* Encounter Date Diagnosis [...] potassium improved with dietary restriction and Lasix. [facility] Other 07-25-2023 Evaluation note* Encounter Date Diagnosis [...] to normal with dietary restriction and Lasix. [facility] Other 07-01-2023 Evaluation note* Encounter Date Diagnosis Assessment Notes Treatment Notes Treatment Clinical Notes Apr, CKD (chronic kidney disease) stage 4, GFR 15-29 ml/min (ICD-10 - N18.4) Apr, Anemia of renal disease (ICD-10 - D63.1) [facility] Other 06-27-2023 Evaluation note* Encounter Date Diagnosis [...] to normal with dietary restriction and Lasix. [facility] Other 06-01-2023 Evaluation note* Encounter Date Diagnosis [...] potassium diet and provide information about it. [facility] Other 03-16-2023 Evaluation note* Encounter Date Diagnosis [...] to Continue Vit D 5000 units daily [facility] Other 01-30-2023 Evaluation note* Encounter Date Diagnosis [...] to Continue Vit D 5000 units daily [facility] Other 12-22-2022 Evaluation note* Encounter Date Diagnosis [...] to Continue Vit D 5000 units daily [facility] Other 11-16-2022 Evaluation note* Encounter Date Diagnosis [...] to Continue Vit D 5000 units daily [facility] Other 08-04-2022 Evaluation note* Encounter Date Diagnosis Assessment Notes Treatment Notes Treatment Clinical Notes May, Hypertensive chronic kidney disease with stage 1 through stage 4 chronic kidney disease, or unspecified chronic kidney disease (ICD-10 - I12.9) [facility] Other 08-02-2022 Evaluation note* Encounter Date Diagnosis Assessment Notes Treatment Notes Treatment Clinical Notes May, CKD (chronic kidney disease) stage 4, GFR 15-29 ml/min (ICD-10 - N18.4) She may haveAnne has CKD due to longstanding HTN with [...] to Continue Vit D 5000 units daily [facility] Other 07-19-2022 Evaluation note* Encounter Date Diagnosis Assessment Notes Treatment Notes Treatment Clinical Notes Apr, Hypertensive chronic kidney disease with stage 1 through stage 4 chronic kidney disease, or unspecified chronic kidney disease (ICD-10 - I12.9) [facility] Other 04-14-2022 Evaluation note* Encounter Date Diagnosis [...] to take Vit D 1000 units daily [facility] Other Evaluation noteNo InformationNort ShopSuey Other Evaluation note* Diagnosis Atherosclerosis of yocha dehe coronary artery of yocha dehe heart without angina 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 Hypertensive urgency Shortness of breath Paroxysmal atrial fibrillation (CMS-HCC) Atrial fibrillation Localized edema Edema [facility] Type Description [...] History SEE ABOVE Hospitalization History COVID 09/2020 [facility] Other history general Narrative - Reported* Type [...] History SEE ABOVE Hospitalization History COVID 09/2020 [facility] Other history general Narrative - Reported* Type [...] History SEE ABOVE Hospitalization History COVID 09/2020 [facility] Other History general Narrative - ReportedNortExakis Other History general Narrative - Reported* Type [...] NOSE 10/2019 Surgical History QU[facility] BYPASS AT [facility] 01/01/2021 Hospitalization History ELEVATED BLOOD PRESSURE Hospitalization History SEE ABOVE Hospitalization History COVID 09/2020 [facility] Other InstructionsNot on filedocumented in this encounter [facility] Summary Purpose Family History No Family History Records FoundNo Family History Records FoundNo Family History Records Found Advance Directives Latest Code Status on File Code Status Date Activated Date Inactivated Comments Full Code 12/28/2020 2:33 PM 01/03/2021 7:38 PM Additional Source Comments INFORMATION SOURCE (unrecogn ized section and content) DATE CREATED AUTHOR 04/02/2018 [facility] DATE CREATED AUTHOR AUTHOR'S ORGANIZ ATION 01/27/2023 [facility] DATE CREATED AUTHOR AUTHOR'S ORGANIZ ATION 12/06/2023 [facility] EPIC REASON FOR VISIT (unrecogniz ed section and content) Reason Comments Med Refill Care Teams (unrecognized sec tion and content) Cardiovascular Invasive Specialist Relationship Specialty Start Date End Date Dhruv Rubi MD [address] [place] [address] PCP - General Family Medicine 10/20/20 FOR [...] BE BASED ON THE PRIMARY CLINICAL RECORDS. Search to Phone [facility]. provides no warranty or guarantee of the accuracy or completeness of information in this document.
[2024-01-09 11:03] LABS: Bilirubin Urine NEGATIVE (NEGATIVE); Blood Urine NEGATIVE (NEGATIVE); Clarity Urine CLEAR (CLEAR); Color Urine YELLOW (YELLOW); Glucose Urine UA NEGATIVE (NEGATIVE); Ketones Urine TRACE mg/dL (NEGATIVE); Leukocyte Esterase Urine TRACE (NEGATIVE); Nitrite Urine NEGATIVE (NEGATIVE); Protein Urine 30 mg/dL (NEG/TRACE); Urobilinogen Urine 0.2 EU/dL (0.2-1.0)
[2024-01-09 11:05] LABS: Basophils Percent Auto 0.6 % (0.2-2.0); Eosinophils Absolute Auto 0.2 10^3/uL (0.0-0.7); Eosinophils Percent Auto 2.1 % (0.9-7.0); Hemoglobin 9.9 g/dL (12.0-16.0); Immature Granulocytes Abs Auto 0.03 10^3/uL (0.00-0.03); Immature Granulocytes Pct Auto 0.4 % (0.0-0.5); Lymphocytes Absolute Auto 2.2 10^3/uL (1.2-3.8); Lymphocytes Percent Auto 30.4 % (20.5-60.0); Mean Corpuscular HGB Conc 31.9 g/dL (29.9-35.2); Mean Corpuscular Hemoglobin 30.8 pg (26.7-34.0); Mean Corpuscular Volume 96.6 fL (81.0-99.0); Mean Platelet Volume 9.6 fL (9.5-13.5); Monocytes Absolute Auto 0.6 10^3/uL (0.3-0.8); Monocytes Percent Auto 8.4 % (1.7-12.0); Neutrophils Absolute Auto 4.2 10^3/uL (1.4-6.5); Neutrophils Percent Auto 58.1 % (43.0-75.0); Platelet Count 194 10^3/uL (150-450); Red Blood Count 3.21 10^6/uL (4.20-5.40); Red Cell Distribution Width 15.1 % (11.0-15.0); White Blood Count 7.2 10^3/uL (4.0-11.0)
[2024-01-09 11:24] LABS: Alanine Aminotransferase 36 U/L (14-59); Albumin Globulin Ratio 1.1; Albumin Level 3.6 g/dL (3.4-5.0); Alkaline Phosphatase 88 U/L (46-116); Anion Gap 16.4; Aspartate Amino Transferase 27 U/L (15-37); BUN Creatinine Ratio 16.4; Bilirubin Total 0.6 mg/dL (0.2-1.0); Calcium 8.6 mg/dL (8.5-10.1); Carbon Dioxide 21.8 mmol/L (21.0-32.0); Chloride 105 mmol/L (98-107); Estimated GFR (African America 27 (>=60); Estimated GFR (Non-African Ame 22 (>=60); Globulin 3.3 g/dL; Glucose 149 mg/dL (74-106); Sodium 137 mmol/L (136-145); Total Protein 6.9 g/dL (6.4-8.2)
[2024-01-09 11:30] LABS: Potassium 6.2 mmol/L (3.5-5.1)
[2024-01-09 11:47] LABS: Bacteria Urine TRACE #/HPF (NONE SEEN); Cast Seen? NONE SEEN #/LPF (NONE SEEN); Crystals Seen? None Seen #/HPF (None Seen); Mucus Urine NONE SEEN (NONE SEEN); RBC Urine 0-2 #/HPF (0-2); Squamous Epithelial Cell Urine MODERATE #/LPF (NONE/RARE)
== END 2024-01-09 10:05 | disposition home or self-care (01) ==
LOC: LAB 10:06
PROVIDERS: PCP Family Medicine; Visit Provider Family Medicine
DX: N18.9 Chronic kidney disease, unspecified (principal); R53.83 Other fatigue; E11.51 Type 2 diabetes mellitus with diabetic peripheral angiopathy without gangrene; R06.00 Dyspnea, unspecified
CPT/HCPCS: 36415; 80053; 81001; 83880; 85025; 87086

== ENCOUNTER 2024-01-10 06:29 | Outpatient (OUT) | payer MEDICARE, SELFPAY ==
--- OUTSIDE RECORDS SUMMARY | 2024-01-10 06:33 | XMS_ITS | CCD ---
Author Organization [facility] Care Team Providers Care Development Spec Name Role Phone PHYSICIAN, DEFAULT Unavailable Unavailable [...] DOREEN, RON Admitting Unavailable HOY ., DR BATRLETT Consulting Unavailable HOY ., DR BARTLETT Primary [...] Care Unavailable DOREEN, RON Attending Unavailable DOREEN, RNO Admitting Unavailable DOREEN, RON Consulting Unavailable HOY [...] Unavailable Dhruv Rubi MD Primary Care Provider [phone] Allergies Allergy Classification Reported Allergen(s) Allergy Type Date of Onset Reaction(s) Facility (20 sources) amLODIPine Drug Allergy 03-28-20 05 [facility] (20 sources) Amoxicillin / Clavulanate Drug Allergy 11-23-19 [facility] [email or web address] Other (20 sources) Contrast media Propensity to adverse reactions Unknown [email or web address] Other (2 sources) Doxazosin; Translations: [doxazosin] Drug Allergy Unknown [email or web address] Other (20 sources) Sulfamethoxazole / Trimethoprim Drug Allergy 11-23-19 [facility] [email or web address] Other (20 sources) Doxazosin Drug Allergy 11-23-19 21 Unknown [email or web address] Other (9 sources) Amoxicillin / Clavulanate; Translations: [Augmentin] Drug Allergy 11-16-19 16 Unknown [facility] (1 source) amLODIPine Drug Allergy 04-25-20 14 [facility] (1 source) Sulfamethoxazole / Trimethoprim Drug Allergy 03-09-20 13 [facility] (1 source) Iodinated Contrast Media Propensity to adverse reactions to drug 11-23-19 21 [facility] Medications Current Medications Medication Drug Class(es) Dates [...] coronary artery bypass graft , Atherosclerosis of [place] coronary artery of [place] heart without angina pectoris , Paroxysmal atrial fibrillation ([facility]) , Localized edema Take 1 tablet (81 [...] (LIPITOR) 80 mg tablet Indications: Atherosclerosis of [place] coronary artery of [place] heart without angina pectoris , H/O four [...] Active docusate sodium 50 mg / sennosides, group home 8.6 mg oral tablet (5 sources) take 1 tablet by mouth every twelve hours Sennosides-Docusate Sodium 8.6-50 MG 1 tablet in the evening as needed Orally every 12 hours Active epoetin johnna-epbx 22436 UNT/ML Injectable Solution [Retacrit] (14 sources) Retacrit 29280 U NIT/ML as directed Injection Active ferrous [...] Active [facility] once daily in the morning Synthroid [...] 0 12/05/2021 Active take 2 tablets by [facility] every twenty-four hours Liothyronine Sodium 5 MCG 2 tablets on a n empty stomach Orally Once a day Active take 2 tablets by [facility] every twenty-four hours lisinopril 10 mg oral [...] in the morning. 0 12/19/2020 Active retacrit 10260 unit/ml solution (5 sources) Retacrit 41242 UNIT/ML as directed Injection Active Sennosides-Docusate Sodium [...] Coronary atherosclerosis; Translations: [Atherosclerotic heart disease of [place] coronary artery without angina pectoris] Onset: 1 [...] [Volume fraction] 28.8 % Critically low 36.0-48.0 [facility] Comment on above: Performed By: #### H H #### [facility] [address] [place] [address] Dr. Ember Teague Hemoglobin (Bld) [Mass/Vol] 9.6 g/dL Critically low 12.0-16.0 [facility] Comment on above: Performed By: #### H H #### [facility] [address] [place] [address] Dr. Ember Teague MCH (RBC) [Entitic mass] 30.7 pg Normal 26.7-34.0 [facility] Comment on above: Performed By: #### H H #### [facility] [address] [place] [address] Dr. Ember Teague MCHC (RBC) [Mass/Vol] 33.3 g/dL Normal 29.9-35.2 [facility] Comment on above: Performed By: #### H H #### [facility] [address] [place] [address] Dr. Ember Teague MCV (RBC) [Entitic vol] 92.0 fL Normal 81.0-99.0 [facility] Comment on above: Performed By: #### H H #### [facility] [address] [place] [address] Dr. Ember Teague PLT 214 103/ul Normal 150-450 [facility] Comment on above: Performed By: #### H H #### [facility] [address] [place] [address] Dr. Ember Teague RBC 3.13 106/ul Critically low 4.20-5.40 [facility] Comment on above: Performed By: #### H H #### [facility] [address] [place] [address] Dr. Ember Teague WBC 7.4 103/ul Normal 4.0-11.0 [facility] Comment on above: Performed By: #### H H #### [facility] [address] [place] [address] Dr. Ember Teague MAGNESIUMon 01-22-2023 Magnesium [Mass/Vol] 1.8 mg/dL Normal 1.8-2.4 [facility] Comment on above: Performed By: #### M G, RENAL #### [facility] [address] [place] [address] Dr. Ember Teague RENAL FUNCTION PANELon 01-22 Albumin [Mass/Vol] 3.6 g/dL Normal 3.4-5.0 [facility] Comment on above: Performed By: #### M G, RENAL #### [facility] [address] [place] [address] Dr. Ember Teague Calcium [Mass/Vol] 9.7 mg/dL Normal 8.5-10.1 [facility] Comment on above: Performed By: #### Lico Stout, RENAL #### [facility] [address] [place] [address] Dr. Ember Teague Chloride [Moles/Vol] 105 mmol/L Normal 98-107 [facility] Comment on above: Performed By: #### M G, RENAL #### [facility] [address] [place] [address] Dr. Ember Teague CO2 [Moles/Vol] 22.6 mmol/L Normal 21.0-32.0 [facility] Comment on above: Performed By: #### M G, RENAL #### [facility] [address] [place] [address] Dr. Ember Teague Creatinine [Mass/Vol] 2.18 mg/dL Critically high 0.55-1.02 [facility] Comment on above: Performed By: #### M G, RENAL #### [facility] [address] [address] [address] Ember Teague EGFR-AF SAMOAN 26 mL/min/1.73m2 Critically low >=60 [facility] Comment on above: Performed By: #### M G, RENAL #### [facility] [address] [address] [address] Ember Teague EGFR-NON AF SAMOAN 22 mL/min/1.73m2 Critically low >=60 [facility] Comment on above: Performed By: #### M G, RENAL #### [facility] [address] [address] [address] Ember Teague Glucose [Mass/Vol] 134 mg/dL Critically high 74-106 [facility] Comment on above: Performed By: #### M G, RENAL #### [facility] [address] [address] [address] Ember Teague Phosphate [Mass/Vol] 4.6 mg/dL Normal 2.6-4.7 [facility] Comment on above: Performed By: #### M G, RENAL #### [facility] [address] [address] [address] Ember Teague Potassium [Moles/Vol] 5.1 mmol/L Normal 3.5-5.1 [facility] Comment on above: Performed By: #### M G, RENAL #### [facility] [address] [address] [address] Ember Teague Sodium [Moles/Vol] 138 mmol/L Normal 136-145 [facility] Comment on above: Performed By: #### M G, RENAL #### [facility] [address] [address] [address] Ember Teague Urea nitrogen [Mass/Vol] 61.0 mg/dL Critically high 7.0-18.0 [facility] Comment on above: Performed By: #### M G, RENAL #### [facility] [address] [address] [address] Ember Teague MG MAMM SCREEN 3D MAY CADon 12-17-2022 MG MAMM SCREEN 3D MAY CAD Patient: KYLAH ROBIN Exam Date: 12/17/2022 : 1945 Gender:F Ordering : DR DHRUV RUBI . Admission #: [id number] Family : Order #: [id number] CLICK HERE TO VIEW EXAM RADIOLOGY REPORT [...] lung cancer at age 61. LOCATION: [facility] BREAST COMPOSITION: Scattered areas fibroglandular [...] MD on 12/17/2022 at 11:59 Normal [facility] FERRITINon 12-10-2022 Ferritin [Mass/Vol] 681.0 ng/mL Critically high 8.0-252.0 [facility] Comment on above: Performed By: #### P THINT #### [facility] [address] [place] [address] Dr. Ember Teague HEMOGRAM AND PLATELon 2022 Hematocrit (Bld) [Volume fraction] 27.1 % Critically low 36.0-48.0 [facility] Comment on above: Performed By: #### C VDTBH #### [facility] [address] [place] [address] Dr. Ember Teague Hemoglobin (Bld) [Mass/Vol] 9.7 g/dL Critically low 12.0-16.0 [facility] Comment on above: Performed By: #### C VDTBH #### [facility] [address] [place] [address] Dr. Ember Teague MCH (RBC) [Entitic mass] 31.4 pg Normal 26.7-34.0 [facility] Comment on above: Performed By: #### C VDTBH #### [facility] [address] [place] [address] Dr. Ember Teague MCHC (RBC) [Mass/Vol] 35.8 g/dL Critically high 29.9-35.2 [facility] Comment on above: Performed By: #### C VDTBH #### [facility] [address] [place] [address] Dr. Ember Teague MCV (RBC) [Entitic vol] 87.7 fL Normal 81.0-99.0 [facility] Comment on above: Performed By: #### C VDTBH #### [facility] [address] [place] [address] Dr. Ember Teague PLT 218 103/ul Normal 150-450 [facility] Comment on above: Performed By: #### C VDTBH #### [facility] [address] [place] [address] Dr. Ember Teague RBC 3.09 106/ul Critically low 4.20-5.40 [facility] Comment on above: Performed By: #### C VDTBH #### [facility] [address] [place] [address] Dr. Ember Teague WBC 6.6 103/ul Normal 4.0-11.0 [facility] Comment on above: Performed By: #### C VDTBH #### [facility] [address] [place] [address] Dr. Ember Teague IRON AND TIBCon 12-10-2022 % SATURATION 30.2 % Normal [facility] Comment on above: Performed By: #### P THINT #### [facility] [address] [place] [address] Dr. Ember Teague Iron [Mass/Vol] 84.0 ug/dL Normal 50.0-170.0 [facility] Comment on above: Performed By: #### P THINT #### [facility] [address] [place] [address] Dr. Ember Teague TIBC DIRECT 278.0 ug/dL Normal 250.0-450.0 [facility] Comment on above: Performed By: #### P THINT #### [facility] [address] [place] [address] Dr. Ember Teague XR FOOT MAY MIN [...] BENI APARICIO Date: 2022-11-20 14:03 Normal [facility] HEMOGRAM AND PLATELon 2022 Hematocrit (Bld) [Volume fraction] 27.7 % Critically low 36.0-48.0 [facility] Comment on above: Performed By: #### R ENAL #### [facility] [address] [place] [address] Dr. Ember Teague Hemoglobin (Bld) [Mass/Vol] 10.0 g/dL Critically low 12.0-16.0 [facility] Comment on above: Performed By: #### R ENAL #### [facility] [address] [place] [address] Dr. Ember Teague MCH (RBC) [Entitic mass] 31.6 pg Normal 26.7-34.0 [facility] Comment on above: Performed By: #### R ENAL #### [facility] [address] [place] [address] Dr. Ember Teague MCHC (RBC) [Mass/Vol] 36.1 g/dL Critically high 29.9-35.2 [facility] Comment on above: Performed By: #### R ENAL #### [facility] [address] [place] [address] Dr. Ember Teague MCV (RBC) [Entitic vol] 87.7 fL Normal 81.0-99.0 [facility] Comment on above: Performed By: #### R ENAL #### [facility] [address] [place] [address] Dr. Ember Teague PLT 182 103/ul Normal 150-450 [facility] Comment on above: Performed By: #### R ENAL #### [facility] [address] [place] [address] Dr. Ember Teague RBC 3.16 106/ul Critically low 4.20-5.40 [facility] Comment on above: Performed By: #### R ENAL #### [facility] [address] [place] [address] Dr. Ember Teague WBC 6.8 103/ul Normal 4.0-11.0 [facility] Comment on above: Performed By: #### R ENAL #### [facility] [address] [place] [address] Dr. Ember Teague PROF CHEM 8 (BAS METB)on Anion gap [Moles/Vol] 17.6 mmol/L Normal [facility] Comment on above: Performed By: #### C VDTBH #### [facility] [address] [place] [address] Dr. Ember Teague Calcium [Mass/Vol] 9.0 mg/dL Normal 8.5-10.1 [facility] Comment on above: Performed By: #### C VDTBH #### [facility] [address] [place] [address] Dr. Ember Teague Chloride [Moles/Vol] 104 mmol/L Normal 98-107 [facility] Comment on above: Performed By: #### C VDTBH #### [facility] [address] [place] [address] Dr. Ember Teague CO2 [Moles/Vol] 22.2 mmol/L Normal 21.0-32.0 [facility] Comment on above: Performed By: #### C VDTBH #### [facility] [address] [address] [address] Ember Teague Creatinine [Mass/Vol] 2.03 mg/dL Critically high 0.55-1.02 [facility] Comment on above: Performed By: #### C VDTBH #### [facility] [address] [address] [address] Ember Teague EGFR-AF SAMOAN 29 mL/min/1.73m2 Critically low >=60 [facility] Comment on above: Performed By: #### C VDTBH #### [facility] [address] [address] [address] Ember Teague EGFR-NON AF SAMOAN 24 mL/min/1.73m2 Critically low >=60 [facility] Comment on above: Performed By: #### C VDTBH #### [facility] [address] [address] [address] Ember Teague Glucose [Mass/Vol] 154 mg/dL Critically high 74-106 [facility] Comment on above: Performed By: #### C VDTBH #### [facility] [address] [address] [address] Ember Teague Potassium [Moles/Vol] 4.8 mmol/L Normal 3.5-5.1 [facility] Comment on above: Performed By: #### C VDTBH #### [facility] [address] [address] [address] Ember Teague Sodium [Moles/Vol] 139 mmol/L Normal 136-145 [facility] Comment on above: Performed By: #### C VDTBH #### [facility] [address] [address] [address] Ember Teague Urea nitrogen [Mass/Vol] 43.0 mg/dL Critically high 7.0-18.0 [facility] Comment on above: Performed By: #### C VDTBH #### [facility] [address] [address] [address] Ember Teague Urea nitrogen/Creatinine [Mass ratio] 21.2 mg/mg Normal [facility] Comment on above: Performed By: #### C VDTBH #### [facility] [address] [address] [address] Ember Teague CULTURE SPUTUMon 10-24-2022 CULTURE SPUTUM Culture Observations : Beta lactamase positive Isolate 1 Haemophilus influenzae Moderate growth of Normal [facility] Comment on above: Performed By: #### R ENAL #### [facility] [address] [address] [address] Ember Teague SPUTUM GRAM STAINon 10-24-19 COMMENTS Normal [facility] Comment on above: Performed By: #### R ENAL #### [facility] [address] [place] [address] Dr. Ember Teague DIPHTHEROIDS [facility] Comment on above: Performed By: #### R ENAL #### [facility] [address] [address] [address] Ember Teague EPITHELIALS >25 Normal [facility] Comment on above: Performed By: #### R ENAL #### [facility] [address] [address] [address] Ember Teague FUNGAL ELEMENTS Normal [facility] Comment on above: Performed By: #### R ENAL #### [facility] [address] [place] [address] Dr. Ember Teague GRAM NEG BACILLI Normal [facility] Comment on above: Performed By: #### R ENAL #### [facility] [address] [place] [address] Dr. Ember Teague GRAM NEG DIPPLOCOCCI FEW Normal [facility] Comment on above: Performed By: #### R ENAL #### [facility] [address] [place] [address] Dr. Ember LOCKWOOD POS BACILLI FEW Normal [facility] Comment on above: Performed By: #### R ENAL #### [facility] [address] [place] [address] Dr. Ember Teague GRAM POSITIVE COCCI MANY Normal [facility] Comment on above: Performed By: #### R ENAL #### [facility] [address] [address] [address] Ember Teague WBC (Bld) [#/Vol] 10*3/uL Normal [facility] Comment on above: Performed By: #### R ENAL #### [facility] [address] [address] [address] Ember Teague XR CHEST 2 Von [...] by: ANGELINA BRISENO Date: 2022-10-24 16:22 Normal [facility] FERRITINon 09-18-2022 Ferritin [Mass/Vol] 612.0 ng/mL Critically high 8.0-252.0 [facility] Comment on above: Performed By: #### F ERR, FETIBC #### [facility] [address] [place] [address] Dr. Ember Teague HEMOGRAM AND PLATELon 2021 Hematocrit (Bld) [Volume fraction] 28.1 % Critically low 36.0-48.0 [facility] Comment on above: Performed By: #### C BC #### [facility] [address] [address] [address] Ember Teague Hemoglobin (Bld) [Mass/Vol] 9.7 g/dL Critically low 12.0-16.0 [facility] Comment on above: Performed By: #### C BC #### [facility] [address] [place] [address] Dr. Ember Teague MCH (RBC) [Entitic mass] 31.3 pg Normal 26.7-34.0 [facility] Comment on above: Performed By: #### C BC #### [facility] [address] [address] [address] Ember Teague MCHC (RBC) [Mass/Vol] 34.5 g/dL Normal 29.9-35.2 [facility] Comment on above: Performed By: #### C BC #### [facility] [address] [address] [address] Ember Teague MCV (RBC) [Entitic vol] 90.6 fL Normal 81.0-99.0 [facility] Comment on above: Performed By: #### C BC #### [facility] [address] [address] [address] Ember Teague PLT 183 103/ul Normal 150-450 [facility] Comment on above: Performed By: #### C BC #### [facility] [address] [place] [address] Dr. Ember Teague RBC 3.10 106/ul Critically low 4.20-5.40 [facility] Comment on above: Performed By: #### C BC #### [facility] [address] [place] [address] Dr. Ember Teague WBC 7.2 103/ul Normal 4.0-11.0 [facility] Comment on above: Performed By: #### C BC #### [facility] [address] [place] [address] Dr. Ember Teague IRON AND TIBCon 09-18-2022 % SATURATION 36.0 % Normal [facility] Comment on above: Performed By: #### F ERR, FETIBC #### [facility] [address] [place] [address] Dr. Ember Teague Iron [Mass/Vol] 77.0 ug/dL Normal 50.0-170.0 [facility] Comment on above: Performed By: #### F ERR, FETIBC #### [facility] [address] [place] [address] Dr. Ember Teague TIBC DIRECT 214.0 ug/dL Critically low 250.0-450.0 [facility] Comment on above: Performed By: #### F ERR, FETIBC #### [facility] [address] [address] [address] Ember Teague RENAL FUNCTION PANELon 09-18 Albumin [Mass/Vol] 3.7 g/dL Normal 3.4-5.0 [facility] Comment on above: Performed By: #### R ENAL #### [facility] [address] [place] [address] Dr. Ember Teague Calcium [Mass/Vol] 9.5 mg/dL Normal 8.5-10.1 [facility] Comment on above: Performed By: #### R ENAL #### [facility] [address] [place] [address] Dr. Ember Teague Chloride [Moles/Vol] 103 mmol/L Normal 98-107 [facility] Comment on above: Performed By: #### R ENAL #### [facility] [address] [place] [address] Dr. Ember Teague CO2 [Moles/Vol] 21.1 mmol/L Normal 21.0-32.0 [facility] Comment on above: Performed By: #### R ENAL #### [facility] [address] [place] [address] Dr. Ember Teague Creatinine [Mass/Vol] 1.85 mg/dL Critically high 0.55-1.02 [facility] Comment on above: Performed By: #### R ENAL #### [facility] [address] [place] [address] Dr. Ember Teague EGFR-AF SAMOAN 32 mL/min/1.73m2 Critically low >=60 [facility] Comment on above: Performed By: #### R ENAL #### [facility] [address] [place] [address] Dr. Ember Teague EGFR-NON AF SAMOAN 26 mL/min/1.73m2 Critically low >=60 [facility] Comment on above: Performed By: #### R ENAL #### [facility] [address] [place] [address] Dr. Ember Teague Glucose [Mass/Vol] 183 mg/dL Critically high 74-106 [facility] Comment on above: Performed By: #### R ENAL #### [facility] [address] [place] [address] Dr. Ember Teague Phosphate [Mass/Vol] 3.7 mg/dL Normal 2.6-4.7 [facility] Comment on above: Performed By: #### R ENAL #### [facility] [address] [place] [address] Dr. Ember Teague Potassium [Moles/Vol] 4.9 mmol/L Normal 3.5-5.1 [facility] Comment on above: Performed By: #### R ENAL #### [facility] [address] [place] [address] Dr. Ember Teague Sodium [Moles/Vol] 138 mmol/L Normal 136-145 [facility] Comment on above: Performed By: #### R ENAL #### [facility] [address] [place] [address] Dr. Ember Teague Urea nitrogen [Mass/Vol] 40.0 mg/dL Critically high 7.0-18.0 [facility] Comment on above: Performed By: #### R ENAL #### [facility] [address] [place] [address] Dr. Ember Teague CULTURE URINEon 09-15-2022 CULTURE [...] F Trimethoprim/Sulfamet hoxazole <=20 S F Normal [facility] Comment on above: Performed By: #### R ENAL #### [facility] [address] [place] [address] Dr. Ember Teague BNPon 09-11-2022 Natriuretic peptide B (Bld) [Mass/Vol] 408.0 pg/mL Normal <=1,800.0 [facility] Comment on above: Performed By: #### P THINT #### [facility] [address] [place] [address] Dr. Ember Teague CBC AUTO DIFFon 09-11-2022 BASO # 0.0 103/ul Normal 0.0-0.1 [facility] Comment on above: Performed By: #### C BC #### [facility] [address] [place] [address] Dr. Ember Teague Basophils/100 WBC (Bld) 0.3 % Normal 0.2-2.0 [facility] Comment on above: Performed By: #### C BC #### [facility] [address] [place] [address] Dr. Ember Teague EO # 0.1 103/ul Normal 0.0-0.7 [facility] Comment on above: Performed By: #### C BC #### [facility] [address] [place] [address] Dr. Ember Teague Eosinophils/100 WBC (Bld) 1.9 % Normal 0.9-7.0 [facility] Comment on above: Performed By: #### C BC #### [facility] Laboratory [address] [place] [address] Dr. Ember Teague Erythrocyte distribution width (RBC) [Ratio] 15.2 % Critically high 11.0-15.0 [facility] Comment on above: Performed By: #### C BC #### [facility] [address] [place] [address] Dr. Ember Teague Hematocrit (Bld) [Volume fraction] 26.6 % Critically low 36.0-48.0 [facility] Comment on above: Performed By: #### C BC #### [facility] [address] [place] [address] Dr. Ember Teague Hemoglobin (Bld) [Mass/Vol] 9.0 g/dL Critically low 12.0-16.0 [facility] Comment on above: Performed By: #### C BC #### [facility] [address] [place] [address] Dr. Ember Teague IG # 0.02 10e3/ul Normal 0.00-0.03 [facility] Comment on above: Performed By: #### C BC #### [facility] [address] [place] [address] Dr. Ember Teague IG % 0.3 % Normal 0.0-0.5 [facility] Comment on above: Performed By: #### C BC #### [facility] [address] [place] [address] Dr. Ember Teague LYMPH # 1.9 103/ul Normal 1.2-3.8 [facility] Comment on above: Performed By: #### C BC #### [facility] [address] [place] [address] Dr. Ember Teague Lymphocytes/100 WBC (Bld) 32.4 % Normal 20.5-60.0 [facility] Comment on above: Performed By: #### C BC #### [facility] [address] [place] [address] Dr. Ember Teague MANUAL DIFF REQ NO Normal [facility] Comment on above: Performed By: #### C BC #### [facility] [address] [place] [address] Dr. Ember Teague MCH (RBC) [Entitic mass] 31.1 pg Normal 26.7-34.0 [facility] Comment on above: Performed By: #### C BC #### [facility] [address] [place] [address] Dr. Ember Teague MCHC (RBC) [Mass/Vol] 33.8 g/dL Normal 29.9-35.2 [facility] Comment on above: Performed By: #### C BC #### [facility] [address] [place] [address] Dr. Ember Teague MCV (RBC) [Entitic vol] 92.0 fL Normal 81.0-99.0 [facility] Comment on above: Performed By: #### C BC #### [facility] [address] [address] [address] Ember Teague MONO # 0.6 103/ul Normal 0.3-0.8 [facility] Comment on above: Performed By: #### C BC #### [facility] [address] [place] [address] Dr. Ember Teague Monocytes/100 WBC (Bld) 10.0 % Normal 1.7-12.0 [facility] Comment on above: Performed By: #### C BC #### [facility] [address] [place] [address] Dr. Ember Teague NEUT # 3.2 103/ul Normal 1.4-6.5 [facility] Comment on above: Performed By: #### C BC #### [facility] [address] [place] [address] Dr. Ember Teague Neutrophils/100 WBC (Bld) 55.1 % Normal 43.0-75.0 [facility] Comment on above: Performed By: #### C BC #### [facility] [address] [place] [address] Dr. Ember Teague Platelet mean volume (Bld) [Entitic vol] 9.4 fL Critically low 9.5-13.5 [facility] Comment on above: Performed By: #### C BC #### [facility] [address] [place] [address] Dr. Ember Teague PLT 196 103/ul Normal 150-450 [facility] Comment on above: Performed By: #### C BC #### [facility] [address] [place] [address] Dr. Ember Teague RBC 2.89 106/ul Critically low 4.20-5.40 [facility] Comment on above: Performed By: #### C BC #### [facility] [address] [place] [address] Dr. Ember Teague WBC 5.8 103/ul Normal 4.0-11.0 [facility] Comment on above: Performed By: #### C BC #### [facility] [address] [place] [address] Dr. Ember Teague PROF 14(COMP METB)on 022 Albumin [Mass/Vol] 3.7 g/dL Normal 3.4-5.0 [facility] Comment on above: Performed By: #### P THINT #### [facility] [address] [place] [address] Dr. Ember Teague Albumin/Globulin [Mass ratio] 1.0 {ratio} Normal [facility] Comment on above: Performed By: #### P THINT #### [facility] [address] [place] [address] Dr. Ember Teague ALP [Catalytic activity/Vol] 79 U/L Normal 46-116 [facility] Comment on above: Performed By: #### P THINT #### [facility] [address] [place] [address] Dr. Ember Teague ALT [Catalytic activity/Vol] 24 U/L Normal 14-59 [facility] Comment on above: Performed By: #### P THINT #### [facility] [address] [place] [address] Dr. Ember Teague Anion gap [Moles/Vol] 12.8 mmol/L Normal [facility] Comment on above: Performed By: #### P THINT #### [facility] [address] [place] [address] Dr. Ember Teague AST [Catalytic activity/Vol] 17 U/L Normal 15-37 [facility] Comment on above: Performed By: #### P THINT #### [facility] [address] [place] [address] Dr. Ember Teague Bilirubin [Mass/Vol] 0.5 mg/dL Normal 0.2-1.0 [facility] Comment on above: Performed By: #### P THINT #### [facility] [address] [place] [address] Dr. Ember Teague Calcium [Mass/Vol] 9.4 mg/dL Normal 8.5-10.1 [facility] Comment on above: Performed By: #### P THINT #### [facility] [address] [place] [address] Dr. Ember Teague Chloride [Moles/Vol] 101 mmol/L Normal 98-107 [facility] Comment on above: Performed By: #### P THINT #### [facility] [address] [place] [address] Dr. Ember Teague CO2 [Moles/Vol] 24.3 mmol/L Normal 21.0-32.0 [facility] Comment on above: Performed By: #### P THINT #### [facility] [address] [place] [address] Dr. Ember Teague Creatinine [Mass/Vol] 2.84 mg/dL Critically high 0.55-1.02 [facility] Comment on above: Performed By: #### P THINT #### [facility] [address] [place] [address] Dr. Ember Teague EGFR-AF SAMOAN 20 mL/min/1.73m2 Critically low >=60 [facility] Comment on above: Performed By: #### P THINT #### [facility] [address] [place] [address] Dr. Ember Teague EGFR-NON AF SAMOAN 16 mL/min/1.73m2 Critically low >=60 [facility] Comment on above: Performed By: #### P THINT #### [facility] [address] [place] [address] Dr. Ember Teague Globulin (S) [Mass/Vol] 3.7 g/dL Normal [facility] Comment on above: Performed By: #### P THINT #### [facility] [address] [place] [address] Dr. Ember Teague Glucose [Mass/Vol] 174 mg/dL Critically high 74-106 T [facility] Comment on above: Performed By: #### P THINT #### [facility] [address] [place] [address] Dr. Ember Teague Potassium [Moles/Vol] 5.1 mmol/L Normal 3.5-5.1 [facility] Comment on above: Performed By: #### P THINT #### [facility] [address] [place] [address] Dr. Ember Teague Protein [Mass/Vol] 7.4 g/dL Normal 6.4-8.2 [facility] Comment on above: Performed By: #### P THINT #### [facility] [address] [address] [address] Embre Teague Sodium [Moles/Vol] 133 mmol/L Critically low 136-145 Th [facility] Comment on above: Performed By: #### P THINT #### [facility] [address] [address] [address] Ember Teague Urea nitrogen [Mass/Vol] 68.0 mg/dL Critically high 7.0-18.0 [facility] Comment on above: Performed By: #### P THINT #### [facility] [address] [place] [address] Dr. Ember Teague Urea nitrogen/Creatinine [Mass ratio] 23.9 mg/mg Normal [facility] Comment on above: Performed By: #### P THINT #### [facility] [address] [place] [address] Dr. Ember Teague TROPONIN, HIGH SENSITIVITYon 09-11-2022 HSTROP 9.1 pg/mL Normal 4.0-51.3 [facility] Comment on above: Result Comment: CUT- OFF POINTS HAVE BEEN ESTABLISHED BASED ON THE FOURTH UNIVERSAL DEFINITIONS OF MYOCARDIAL INFARCTION. THE UPPER REFERENCE LIMIT (URL) OF TROPONIN, DEFINED THE 99TH PERCENTILE OF cTnI DISTRIBUTION IN A REFERENCE POPULATION, HAS BEEN CONFIRMED THE DECISION THRESHOLD FOR HI DIAGNOSIS. Performed By: #### P THINT #### [facility] [address] [place] [address] Dr. Ember Teague UA RANDOM W/MICROSCOPICon BACTERIA NONE SEEN Normal NONE SEEN [facility] Comment on above: Performed By: #### C VDTBH #### [facility] [address] [place] [address] Dr. Ember Teague Bilirubin Ql (U) Negative Normal NEGATIVE [facility] Comment on above: Performed By: #### C VDTBH #### [facility] [address] [place] [address] Dr. Ember Teague CAST NONE SEEN Normal NONE SEEN [facility] Comment on above: Performed By: #### C VDTBH #### [facility] [address] [place] [address] Dr. Ember Teague Clarity (U) CLEAR Normal CLEAR [facility] Comment on above: Performed By: #### C VDTBH #### [facility] [address] [place] [address] Dr. Ember Teague Color (U) LT. YELLOW Normal YELLOW [facility] Comment on above: Performed By: #### C VDTBH #### [facility] [address] [place] [address] Dr. Ember Teague Crystals LM Nom (Urine sed) NONE SEEN Normal NONE SEEN [facility] Comment on above: Performed By: #### C VDTBH #### [facility] [address] [place] [address] Dr. Ember Teague Epithelial cells LM Ql (Urine sed) FEW Abnormal NONE SEEN /RARE [facility] Comment on above: Performed By: #### C VDTBH #### [facility] [address] [place] [address] Dr. Ember Teague Glucose Ql (U) Negative Normal NEGATIVE [facility] Comment on above: Performed By: #### C VDTBH #### [facility] [address] [place] [address] Dr. Ember Teague Hemoglobin Ql (U) Negative Normal NEGATIVE [facility] Comment on above: Performed By: #### C VDTBH #### [facility] [address] [place] [address] Dr. Ember Teague Ketones Ql (U) Negative Normal NEGATIVE [facility] Comment on above: Performed By: #### C VDTBH #### [facility] [address] [place] [address] Dr. Ember Teague LEUKOCYTES Negative Normal NEGATIVE [facility] Comment on above: Performed By: #### C VDTBH #### [facility] [address] [place] [address] Dr. Ember Teague MUCOUS NONE SEEN Normal NONE SEEN [facility] Comment on above: Performed By: #### C VDTBH #### [facility] [address] [place] [address] Dr. Ember Teague Nitrite Ql (U) Negative Normal NEGATIVE [facility] Comment on above: Performed By: #### C VDTBH #### [facility] [address] [place] [address] Dr. Ember Teague pH (U) 5.5 [pH] Normal 5-9 [facility] Comment on above: Performed By: #### C VDTBH #### [facility] [address] [place] [address] Dr. Ember Teague RBC NONE SEEN Abnormal 0-2 [facility] Comment on above: Performed By: #### C VDTBH #### [facility] [address] [place] [address] Dr. Ember Teague SPEC GRAVITY 1.010 Normal 1.005-<=1.025 [facility] Comment on above: Performed By: #### C VDTBH #### [facility] [address] [place] [address] Dr. Ember Teague UA PROTEIN Negative Normal NEGATIVE/ TRACE [facility] Comment on above: Performed By: #### C VDTBH #### [facility] [address] [place] [address] Dr. Ember Teague Urobilinogen Qn (U) 0.2 {Esau'U}/dL Normal 0.2 - 1. 0 [facility] Comment on above: Performed By: #### C VDTBH #### [facility] [address] [place] [address] Dr. Ember Teague WBC NONE SEEN Normal NONE SEEN [facility] Comment on above: Performed By: #### C VDTBH #### [facility] [address] [place] [address] Dr. Ember Teague CBC AUTO DIFFon 08-13-2022 BASO # 0.0 103/ul Normal 0.0-0.1 [facility] Comment on above: Performed By: #### C BC #### [facility] [address] [place] [address] Dr. Ember Teague Basophils/100 WBC (Bld) 0.3 % Normal 0.2-2.0 [facility] Comment on above: Performed By: #### C BC #### [facility] [address] [place] [address] Dr. Ember Teague EO # 0.2 103/ul Normal 0.0-0.7 [facility] Comment on above: Performed By: #### C BC #### [facility] [address] [place] [address] Dr. Ember Teague Eosinophils/100 WBC (Bld) 3.7 % Normal 0.9-7.0 [facility] Comment on above: Performed By: #### C BC #### [facility] [address] [place] [address] Dr. Ember Teague Erythrocyte distribution width (RBC) [Ratio] 15.0 % Normal 11.0-15.0 [facility] Comment on above: Performed By: #### C BC #### [facility] [address] [place] [address] Dr. Ember Teague Hematocrit (Bld) [Volume fraction] 27.9 % Critically low 36.0-48.0 [facility] Comment on above: Performed By: #### C BC #### [facility] [address] [place] [address] Dr. Ember Teague Hemoglobin (Bld) [Mass/Vol] 9.7 g/dL Critically low 12.0-16.0 [facility] Comment on above: Performed By: #### C BC #### [facility] [address] [place] [address] Dr. Ember Teague IG # 0.01 10e3/ul Normal 0.00-0.03 [facility] Comment on above: Performed By: #### C BC #### [facility] [address] [place] [address] Dr. Ember Teague IG % 0.2 % Normal 0.0-0.5 [facility] Comment on above: Performed By: #### C BC #### [facility] [address] [place] [address] Dr. Ember Teague LYMPH # 1.9 103/ul Normal 1.2-3.8 [facility] Comment on above: Performed By: #### C BC #### [facility] [address] [place] [address] Dr. Ember Teague Lymphocytes/100 WBC (Bld) 32.2 % Normal 20.5-60.0 [facility] Comment on above: Performed By: #### C BC #### [facility] [address] [place] [address] Dr. Ember Teague MANUAL DIFF REQ NO Normal [facility] Comment on above: Performed By: #### C BC #### [facility] [address] [place] [address] Dr. Ember Teague MCH (RBC) [Entitic mass] 31.4 pg Normal 26.7-34.0 [facility] Comment on above: Performed By: #### C BC #### [facility] [address] [place] [address] Dr. Embre Teague MCHC (RBC) [Mass/Vol] 34.8 g/dL Normal 29.9-35.2 [facility] Comment on above: Performed By: #### C BC #### [facility] [address] [place] [address] Dr. Ember Teague MCV (RBC) [Entitic vol] 90.3 fL Normal 81.0-99.0 [facility] Comment on above: Performed By: #### C BC #### [facility] [address] [place] [address] Dr. Ember Teague MONO # 0.6 103/ul Normal 0.3-0.8 [facility] Comment on above: Performed By: #### C BC #### [facility] [address] [place] [address] Dr. Ember Teague Monocytes/100 WBC (Bld) 9.8 % Normal 1.7-12.0 [facility] Comment on above: Performed By: #### C BC #### [facility] [address] [place] [address] Dr. Ember Teague NEUT # 3.2 103/ul Normal 1.4-6.5 [facility] Comment on above: Performed By: #### C BC #### [facility] [address] [address] [address] Ember Teague Neutrophils/100 WBC (Bld) 53.8 % Normal 43.0-75.0 [facility] Comment on above: Performed By: #### C BC #### [facility] [address] [address] [address] Ember Teague Platelet mean volume (Bld) [Entitic vol] 10.0 fL Normal 9.5-13.5 [facility] Comment on above: Performed By: #### C BC #### [facility] [address] [place] [address] Dr. Ember Teague PLT 194 103/ul Normal 150-450 [facility] Comment on above: Performed By: #### C BC #### [facility] [address] [place] [address] Dr. Ember Teague RBC 3.09 106/ul Critically low 4.20-5.40 [facility] Comment on above: Performed By: #### C BC #### [facility] [address] [place] [address] Dr. Ember Teague WBC 6.0 103/ul Normal 4.0-11.0 [facility] Comment on above: Performed By: #### C BC #### [facility] [address] [place] [address] Dr. Ember Teague PTH INTACTon 06-26-2022 PTH, Intact 39 pg/mL Normal 15-65 [facility] Comment on above: Performed By: #### P THINT #### [facility] [address] [place] [address] Dr. Ember Teague CBC AUTO DIFFon 06-25-2022 BASO # 0.1 103/ul Normal 0.0-0.1 [facility] Comment on above: Performed By: #### C VDTBH #### [facility] [address] [address] [address] Ember Teague Basophils/100 WBC (Bld) 0.6 % Normal 0.2-2.0 [facility] Comment on above: Performed By: #### C VDTBH #### [facility] [address] [place] [address] Dr. Ember Teague EO # 0.2 103/ul Normal 0.0-0.7 [facility] Comment on above: Performed By: #### C VDTBH #### [facility] [address] [place] [address] Dr. Ember Teague Eosinophils/100 WBC (Bld) 3.0 % Normal 0.9-7.0 [facility] Comment on above: Performed By: #### C VDTBH #### [facility] [address] [place] [address] Dr. Ember Teague Erythrocyte distribution width (RBC) [Ratio] 14.2 % Normal 11.0-15.0 [facility] Comment on above: Performed By: #### C VDTBH #### [facility] [address] [place] [address] Dr. Ember Teague Hematocrit (Bld) [Volume fraction] 30.9 % Critically low 36.0-48.0 [facility] Comment on above: Performed By: #### C VDTBH #### [facility] [address] [place] [address] Dr. Ember Teague Hemoglobin (Bld) [Mass/Vol] 10.6 g/dL Critically low 12.0-16.0 [facility] Comment on above: Performed By: #### C VDTBH #### [facility] [address] [place] [address] Dr. Ember Teague IG # 0.04 10e3/ul Critically high 0.00-0.03 [facility] Comment on above: Performed By: #### C VDTBH #### [facility] [address] [place] [address] Dr. Ember Teague IG % 0.5 % Normal 0.0-0.5 [facility] Comment on above: Performed By: #### C VDTBH #### [facility] [address] [place] [address] Dr. Ember Teague LYMPH # 2.2 103/ul Normal 1.2-3.8 [facility] Comment on above: Performed By: #### C VDTBH #### [facility] [address] [place] [address] Dr. Ember Teague Lymphocytes/100 WBC (Bld) 27.0 % Normal 20.5-60.0 [facility] Comment on above: Performed By: #### C VDTBH #### [facility] [address] [place] [address] Dr. Ember Teague MANUAL DIFF REQ NO Normal [facility] Comment on above: Performed By: #### C VDTBH #### [facility] [address] [place] [address] Dr. Ember Teague MCH (RBC) [Entitic mass] 31.2 pg Normal 26.7-34.0 [facility] Comment on above: Performed By: #### C VDTBH #### [facility] [address] [place] [address] Dr. Ember Teague MCHC (RBC) [Mass/Vol] 34.3 g/dL Normal 29.9-35.2 [facility] Comment on above: Performed By: #### C VDTBH #### [facility] [address] [place] [address] Dr. Ember Teague MCV (RBC) [Entitic vol] 90.9 fL Normal 81.0-99.0 [facility] Comment on above: Performed By: #### C VDTBH #### [facility] [address] [place] [address] Dr. Ember Teague MONO # 0.7 103/ul Normal 0.3-0.8 [facility] Comment on above: Performed By: #### C VDTBH #### [facility] [address] [place] [address] Dr. Ember Teague Monocytes/100 WBC (Bld) 9.2 % Normal 1.7-12.0 [facility] Comment on above: Performed By: #### C VDTBH #### [facility] [address] [place] [address] Dr. Ember Teague NEUT # 4.8 103/ul Normal 1.4-6.5 [facility] Comment on above: Performed By: #### C VDTBH #### [facility] [address] [place] [address] Dr. Ember Teague Neutrophils/100 WBC (Bld) 59.7 % Normal 43.0-75.0 [facility] Comment on above: Performed By: #### C VDTBH #### [facility] [address] [place] [address] Dr. Ember Teague Platelet mean volume (Bld) [Entitic vol] 9.3 fL Critically low 9.5-13.5 [facility] Comment on above: Performed By: #### C VDTBH #### [facility] [address] [place] [address] Dr. Ember Teague PLT 227 103/ul Normal 150-450 [facility] Comment on above: Performed By: #### C VDTBH #### [facility] [address] [place] [address] Dr. Ember Teague RBC 3.40 106/ul Critically low 4.20-5.40 [facility] Comment on above: Performed By: #### C VDTBH #### [facility] [address] [place] [address] Dr. Ember Teague WBC 8.0 103/ul Normal 4.0-11.0 [facility] Comment on above: Performed By: #### C VDTBH #### [facility] [address] [place] [address] Dr. Ember Teague MRI LSPINE WO CONon [...] YANET HUERTA Date: 2022-06-25 08:45 Normal [facility] RENAL FUNCTION PANELon 06-25 Albumin [Mass/Vol] 3.9 g/dL Normal 3.4-5.0 [facility] Comment on above: Performed By: #### P THINT #### [facility] [address] [place] [address] Dr. Ember Teague Calcium [Mass/Vol] 9.5 mg/dL Normal 8.5-10.1 [facility] Comment on above: Performed By: #### P THINT #### [facility] [address] [address] [address] Ember Teague Chloride [Moles/Vol] 102 mmol/L Normal 98-107 [facility] Comment on above: Performed By: #### P THINT #### [facility] [address] [address] [address] Ember Teague CO2 [Moles/Vol] 23.8 mmol/L Normal 21.0-32.0 [facility] Comment on above: Performed By: #### P THINT #### [facility] [address] [address] [address] Ember Teague Creatinine [Mass/Vol] 1.75 mg/dL Critically high 0.55-1.02 [facility] Comment on above: Performed By: #### P THINT #### [facility] [address] [address] [address] Ember Teague EGFR-AF SAMOAN 34 mL/min/1.73m2 Critically low >=60 [facility] Comment on above: Performed By: #### P THINT #### [facility] [address] [address] [address] Ember Teague EGFR-NON AF SAMOAN 28 mL/min/1.73m2 Critically low >=60 [facility] Comment on above: Performed By: #### P THINT #### [facility] [address] [address] [address] Ember Teague Glucose [Mass/Vol] 199 mg/dL Critically high 74-106 T [facility] Comment on above: Performed By: #### P THINT #### [facility] [address] [address] [address] Ember Teague Phosphate [Mass/Vol] 4.3 mg/dL Normal 2.6-4.7 [facility] Comment on above: Performed By: #### P THINT #### [facility] [address] [address] [address] Ember Teague Potassium [Moles/Vol] 4.9 mmol/L Normal 3.5-5.1 [facility] Comment on above: Performed By: #### P THINT #### [facility] [address] [address] [address] Ember Teague Sodium [Moles/Vol] 135 mmol/L Critically low 136-145 Th [facility] Comment on above: Performed By: #### P THINT #### [facility] [address] [address] [address] Ember Teague Urea nitrogen [Mass/Vol] 34.0 mg/dL Critically high 7.0-18.0 [facility] Comment on above: Performed By: #### P THINT #### [facility] [address] [place] [address] Dr. Ember Teague VITAMIN D 25 OHon 06-25-2022 VIT D 25-OH 40.6 ng/mL Normal [facility] Comment on above: Performed By: #### P THINT #### [facility] [address] [place] [address] Dr. Ember Teague VIT D RANGES SEE BELOW Normal [facility] Comment on above: Result Comment: <20 ng/mL Vit D deficient 20 - <30 ng/mL Vit D insufficient 30 - 100 ng/mL Vit D sufficient >100 ng/mL Potential Toxicity Performed By: #### P THINT #### [facility] [address] [place] [address] Dr. Ember Teague Covid-19 PCR (CVDTB)on 06-07 SARS-CoV-2 (COVID-19) RNA ALEXX+probe Ql (Unsp spec) Not detected Normal NOT DETECTED [facility] Comment on above: Result Comment: This test is not yet approved or cleared by the [place] FDA. When there are no FDA-approved or cleared tests available, and other criteria are met, FDA can make tests available under an emergency access mechanism called an Emergency Use Authorization (EUA). The EUA for this test is supported by the [place] of Health and Human Service's (HHS's) declaration [...] SARS-CoV-2. Performed By: #### C VDTBH #### [facility] [address] [place] [address] LSPINE WO CONon [...] by: YANET HUERTA Date: 2022-06-01 18:02 Normal [facility] XR LSPINE MIN 4 VIEWSon 05-07 [...] YANET HUERTA Date: 2022-05-21 15:25 Normal [facility] PTH INTACTon 05-03-2022 PTH, Intact 60 pg/mL Normal 15-65 [facility] Comment on above: Performed By: #### C VDTBH #### [facility] [address] [address] [address] Ember Teague VIT D 25-OH LABCORPon 2021 Vitamin D, 25-Hydroxy 26.1 ng/mL Critically low 30.0-100.0 [facility] Comment on above: Result Comment: Sara min D deficiency has been defined by the [place] of [employer] and an Endocrine Society practice guideline as a level of serum 25-OH vitamin D less than 20 ng/mL (1,2). The Endocrine Society went on to further define vitamin D insufficiency as a level between 21 and 29 ng/mL (2). 1. IOM ([place] of Medicine). 2010. Dietary reference intakes for calcium and D. [place]: The National Academies Press. 2. Sherice MF, Wendy WILSON, Huan ZHONG, et al. Evaluation, treatment, and prevention of vitamin D deficiency: an Endocrine Society clinical practice guideline. JCEM. 2010; 96(7):1911-30. Performed By: #### R ENAL #### [facility] [address] [address] [address] Ember Teague FERRITINon 05-02-2022 Ferritin [Mass/Vol] 590.0 ng/mL Critically high 8.0-252.0 [facility] Comment on above: Performed By: #### R ENAL #### [facility] [address] [address] [address] Ember Teague HEMOGRAM AND PLATELon 2021 Hematocrit (Bld) [Volume fraction] 28.4 % Critically low 36.0-48.0 [facility] Comment on above: Performed By: #### C VDTBH #### [facility] [address] [address] [address] Ember Teague Hemoglobin (Bld) [Mass/Vol] 9.6 g/dL Critically low 12.0-16.0 [facility] Comment on above: Performed By: #### C VDTBH #### [facility] [address] [place] [address] Dr. Ember Teague MCH (RBC) [Entitic mass] 31.0 pg Normal 26.7-34.0 [facility] Comment on above: Performed By: #### C VDTBH #### [facility] [address] [place] [address] Dr. Ember Teague MCHC (RBC) [Mass/Vol] 33.8 g/dL Normal 29.9-35.2 [facility] Comment on above: Performed By: #### C VDTBH #### [facility] [address] [place] [address] Dr. Ember Teague MCV (RBC) [Entitic vol] 91.6 fL Normal 81.0-99.0 [facility] Comment on above: Performed By: #### C VDTBH #### [facility] [address] [place] [address] Dr. Ember Teague PLT 189 103/ul Normal 150-450 [facility] Comment on above: Performed By: #### C VDTBH #### [facility] [address] [place] [address] Dr. Ember Teague RBC 3.10 106/ul Critically low 4.20-5.40 [facility] Comment on above: Performed By: #### C VDTBH #### [facility] [address] [place] [address] Dr. Ember Teague WBC 6.2 103/ul Normal 4.0-11.0 [facility] Comment on above: Performed By: #### C VDTBH #### [facility] [address] [place] [address] Dr. Ember Teague IRON AND TIBCon 05-02-2022 % SATURATION 34.3 % Normal [facility] Comment on above: Performed By: #### R ENAL #### [facility] [address] [place] [address] Dr. Ember Teague Iron [Mass/Vol] 69.0 ug/dL Normal 50.0-170.0 [facility] Comment on above: Performed By: #### R ENAL #### [facility] [address] [place] [address] Dr. Ember Teague TIBC DIRECT 201.0 ug/dL Critically low 250.0-450.0 [facility] Comment on above: Performed By: #### R ENAL #### [facility] [address] [place] [address] Dr. Ember Teague MAGNESIUMon 05-02-2022 Magnesium [Mass/Vol] 1.7 mg/dL Critically low 1.8-2.4 [facility] Comment on above: Performed By: #### C VDTBH #### [facility] [address] [place] [address] Dr. Ember Teague RENAL FUNCTION PANELon 05-02 Albumin [Mass/Vol] 3.6 g/dL Normal 3.4-5.0 [facility] Comment on above: Performed By: #### C VDTBH #### [facility] [address] [place] [address] Dr. Ember Teague Calcium [Mass/Vol] 9.2 mg/dL Normal 8.5-10.1 [facility] Comment on above: Performed By: #### C VDTBH #### [facility] [address] [place] [address] Dr. Ember Teague Chloride [Moles/Vol] 107 mmol/L Normal 98-107 [facility] Comment on above: Performed By: #### C VDTBH #### [facility] [address] [place] [address] Dr. Ember Teague CO2 [Moles/Vol] 21.2 mmol/L Normal 21.0-32.0 [facility] Comment on above: Performed By: #### C VDTBH #### [facility] [address] [place] [address] Dr. Ember Teague Creatinine [Mass/Vol] 1.75 mg/dL Critically high 0.55-1.02 [facility] Comment on above: Performed By: #### C VDTBH #### [facility] [address] [place] [address] Dr. Ember Teague EGFR-AF SAMOAN 34 mL/min/1.73m2 Critically low >=60 [facility] Comment on above: Performed By: #### C VDTBH #### [facility] [address] [place] [address] Dr. Ember Teague EGFR-NON AF SAMOAN 28 mL/min/1.73m2 Critically low >=60 [facility] Comment on above: Performed By: #### C VDTBH #### [facility] [address] [address] [address] Ember Teague Glucose [Mass/Vol] 193 mg/dL Critically high 74-106 T [facility] Comment on above: Performed By: #### C VDTBH #### [facility] [address] [place] [address] Dr. Ember Teague Phosphate [Mass/Vol] 4.2 mg/dL Normal 2.6-4.7 [facility] Comment on above: Performed By: #### C VDTBH #### [facility] [address] [place] [address] Dr. Ember Teague Potassium [Moles/Vol] 5.1 mmol/L Normal 3.5-5.1 [facility] Comment on above: Performed By: #### C VDTBH #### [facility] [address] [place] [address] Dr. Ember Teague Sodium [Moles/Vol] 139 mmol/L Normal 136-145 [facility] Comment on above: Performed By: #### C VDTBH #### [facility] [address] [place] [address] Dr. Ember Teague Urea nitrogen [Mass/Vol] 34.0 mg/dL Critically high 7.0-18.0 [facility] Comment on above: Performed By: #### C VDTBH #### [facility] [address] [place] [address] Dr. Ember Teague UA RANDOM W/MICROSCOPICon BACTERIA SMALL Abnormal NONE SEEN [facility] Comment on above: Performed By: #### C VDTBH #### [facility] [address] [place] [address] Dr. Ember Teague Bilirubin Ql (U) Negative Normal NEGATIVE [facility] Comment on above: Performed By: #### C VDTBH #### [facility] [address] [place] [address] Dr. Ember Teague CAST NONE SEEN Normal NONE SEEN [facility] Comment on above: Performed By: #### C VDTBH #### [facility] [address] [place] [address] Dr. Ember Teague Clarity (U) CLEAR Normal CLEAR [facility] Comment on above: Performed By: #### C VDTBH #### [facility] [address] [place] [address] Dr. Ember Teague Color (U) LT. YELLOW Normal YELLOW [facility] Comment on above: Performed By: #### C VDTBH #### [facility] [address] [place] [address] Dr. Ember Teague Crystals LM Nom (Urine sed) NONE SEEN Normal NONE SEEN [facility] Comment on above: Performed By: #### C VDTBH #### [facility] [address] [place] [address] Dr. Ember Teague Epithelial cells LM Ql (Urine sed) MODERATE Abnormal NONE SEEN /RARE [facility] Comment on above: Performed By: #### C VDTBH #### [facility] [address] [place] [address] Dr. Ember Teague Glucose Ql (U) Negative Normal NEGATIVE [facility] Comment on above: Performed By: #### C VDTBH #### [facility] [address] [place] [address] Dr. Ember Teague Hemoglobin Ql (U) Negative Normal NEGATIVE [facility] Comment on above: Performed By: #### C VDTBH #### [facility] [address] [place] [address] Dr. Ember Teague Ketones Ql (U) Negative Normal NEGATIVE [facility] Comment on above: Performed By: #### C VDTBH #### [facility] [address] [place] [address] Dr. Ember Teague LEUKOCYTES TRACE Abnormal NEGATIVE [facility] Comment on above: Performed By: #### C VDTBH #### [facility] [address] [place] [address] Dr. Ember Teague MUCOUS NONE SEEN Normal NONE SEEN [facility] Comment on above: Performed By: #### C VDTBH #### [facility] [address] [place] [address] Dr. Ember Teague Nitrite Ql (U) Negative Normal NEGATIVE [facility] Comment on above: Performed By: #### C VDTBH #### [facility] [address] [place] [address] Dr. Ember Teague pH (U) 5.0 [pH] Normal 5-9 [facility] Comment on above: Performed By: #### C VDTBH #### [facility] [address] [place] [address] Dr. Ember Teague RBC NONE SEEN Abnormal 0-2 [facility] Comment on above: Performed By: #### C VDTBH #### [facility] [address] [place] [address] Dr. Ember Teague SPEC GRAVITY 1.015 Normal 1.005-<=1.025 [facility] Comment on above: Performed By: #### C VDTBH #### [facility] [address] [place] [address] Dr. Ember Teague UA PROTEIN TRACE Normal NEGATIVE/ TRACE [facility] Comment on above: Performed By: #### C VDTBH #### [facility] [address] [place] [address] Dr. Ember Teague Urobilinogen Qn (U) 0.2 {Esau'U}/dL Normal 0.2 - 1. 0 [facility] Comment on above: Performed By: #### C VDTBH #### [facility] [address] [place] [address] Dr. Ember Teague WBC 0-2 Abnormal NONE SEEN [facility] Comment on above: Performed By: #### C VDTBH #### [facility] [address] [place] [address] Dr. Ember Teague URIC ACID SERUMon 05-02-2022 Urate [Mass/Vol] 4.4 mg/dL Normal 2.6-6.0 [facility] Comment on above: Performed By: #### C BC #### [facility] [address] [place] [address] Dr. Ember Teague URINE T PROTEIN CREAT RATIOo n 05-02-2022 Protein (U) [Mass/Vol] 33.7 mg/dL Critically high <=12.0 [facility] Comment on above: Performed By: #### C VDTBH #### [facility] [address] [address] [address] Ember Teague UR PROT CREAT RAT 0.69 Normal [facility] Comment on above: Performed By: #### C VDTBH #### [facility] [address] [address] [address] Ember Teague URINE CREAT 48.93 mg/dL Normal 20.00-300.00 [facility] Comment on above: Performed By: #### C VDTBH #### [facility] [address] [address] [address] Ember Teague Vital Signs Date Time Vital Sign Value Performing Clinician Facility 11-18-2023 10:00-0500 Body height 168.91 cm Ron Doreen Other [facility] Other 11-18-2023 10:00-0500 Body mass index (BMI) [Ratio] 29.85 kg/m2 Ron Doreen Other [facility] Other 11-18-2023 10:00-0500 Body temperature 97.3 [degF] Ron Doreen Other [facility] Other 11-18-2023 10:00-0500 Body weight 85.19 kg Ron Doreen Other [facility] Other 11-18-2023 10:00-0500 Diastolic blood pressure 79 mm[Hg] Ron Doreen Other [facility] Other 11-18-2023 10:00-0500 Respiratory rate 18 /min Ron Doreen Other [facility] Other 11-18-2023 10:00-0500 SaO2% (BldA) [Mass fraction] 98 % Ron Doreen Other [facility] Other 11-18-2023 10:00-0500 Systolic blood pressure 149 mm[Hg] Ron Doreen Other [facility] Other 11-04-2023 11:00-0500 Body height 168.91 cm Ron Doreen Other [facility] Other 11-04-2023 11:00-0500 Body mass index (BMI) [Ratio] 30.17 kg/m2 Ron Doreen Other [facility] Other 11-04-2023 11:00-0500 Body temperature 97.6 [degF] Ron Doreen Other [facility] Other 11-04-2023 11:00-0500 Body weight 86.09 kg Ron Doreen Other [facility] Other 11-04-2023 11:00-0500 Diastolic blood pressure 76 mm[Hg] Ron Doreen Other [facility] Other 11-04-2023 11:00-0500 Respiratory rate 18 /min Ron Doreen Other [facility] Other 11-04-2023 11:00-0500 SaO2% (BldA) [Mass fraction] 98 % Ron Doreen Other [facility] Other 11-04-2023 11:00-0500 Systolic blood pressure 153 mm[Hg] Ron Doreen Other [facility] Other 10-15-2023 13:00-0500 Body height 168.91 cm Ron Doreen Other [facility] Other 10-15-2023 13:00-0500 Body mass index (BMI) [Ratio] 29.82 kg/m2 Ron Doreen Other [facility] Other 10-15-2023 13:00-0500 Body temperature 97.5 [degF] Ron Doreen Other [facility] Other 10-15-2023 13:00-0500 Body weight 85.1 kg Ron Doreen Other [facility] Other 10-15-2023 13:00-0500 Diastolic blood pressure 68 mm[Hg] Ron Doreen Other [facility] Other 10-15-2023 13:00-0500 Respiratory rate 18 /min Ron Doreen Other [facility] Other 10-15-2023 13:00-0500 SaO2% (BldA) [Mass fraction] 98 % Ron Doreen Other [facility] Other 10-15-2023 13:00-0500 Systolic blood pressure 113 mm[Hg] Ron Doreen Other [facility] Other 08-27-2023 09:40-0500 Body height 168.91 cm Azduc Bakjuniors Other [facility] Other 08-27-2023 09:40-0500 Body mass index (BMI) [Ratio] 30.2 kg/m2 Azduc Bakhous Other [facility] Other 08-27-2023 09:40-0500 Body temperature 96.7 [degF] Azduc Mensahs Other [facility] Other 08-27-2023 09:40-0500 Body weight 86.18 kg Azduc Shaferhous Other [facility] Other 08-27-2023 09:40-0500 Diastolic blood pressure 72 mm[Hg] Aziz Rodricks Other [facility] Other 08-27-2023 09:40-0500 Respiratory rate 18 /min Azduc Bakhous Other [facility] Other 08-27-2023 09:40-0500 SaO2% (BldA) [Mass fraction] 98 % Azduc Bakhous Other [facility] Other 08-27-2023 09:40-0500 Systolic blood pressure 153 mm[Hg] Aziz Bakhous Other [facility] Other 08-15-2023 10:20-0500 Body height 168.91 cm Ron Doreen Other [facility] Other 08-15-2023 10:20-0500 Body mass index (BMI) [Ratio] 30.2 kg/m2 Ron Doreen Other [facility] Other 08-15-2023 10:20-0500 Body temperature 97.1 [degF] Ron Doreen Other [facility] Other 08-15-2023 10:20-0500 Body weight 86.18 kg Ron Doreen Other [facility] Other 08-15-2023 10:20-0500 Diastolic blood pressure 79 mm[Hg] Ron Doreen Other [facility] Other 08-15-2023 10:20-0500 Respiratory rate 18 /min Ron Doreen Other [facility] Other 08-15-2023 10:20-0500 SaO2% (BldA) [Mass fraction] 98 % Ron Doreen Other [facility] Other 08-15-2023 10:20-0500 Systolic blood pressure 164 mm[Hg] Ron Doreen Other [facility] Other 08-13-2023 15:40-0500 Body height 168.91 cm Ron Doreen Other [facility] Other 08-13-2023 15:40-0500 Body mass index (BMI) [Ratio] 30.24 kg/m2 Ron Doreen Other [facility] Other 08-13-2023 15:40-0500 Body temperature 97.2 [degF] Ron Doreen Other [facility] Other 08-13-2023 15:40-0500 Body weight 86.27 kg Ron Doreen Other [facility] Other 08-13-2023 15:40-0500 Diastolic blood pressure 79 mm[Hg] Ron Doreen Other [facility] Other 08-13-2023 15:40-0500 Respiratory rate 18 /min Ron Doreen Other [facility] Other 08-13-2023 15:40-0500 SaO2% (BldA) [Mass fraction] 98 % Ron Doreen Other [facility] Other 08-13-2023 15:40-0500 Systolic blood pressure 186 mm[Hg] Ron Doreen Other [facility] Other 08-01-2023 13:00-0400 Body height 168.91 cm Ron Doreen Other [facility] Other 08-01-2023 13:00-0400 Body mass index (BMI) [Ratio] 30.55 kg/m2 Ron Doreen Other [facility] Other 08-01-2023 13:00-0400 Body temperature 97.8 [degF] Ron Doreen Other [facility] Other 08-01-2023 13:00-0400 Body weight 87.18 kg Ron Doreen Other [facility] Other 08-01-2023 13:00-0400 Diastolic blood pressure 72 mm[Hg] Ron Doreen Other [facility] Other 08-01-2023 13:00-0400 Respiratory rate 18 /min Ron Doreen Other [facility] Other 08-01-2023 13:00-0400 SaO2% (BldA) [Mass fraction] 98 % Ron Doreen Other [facility] Other 08-01-2023 13:00-0400 Systolic blood pressure 160 mm[Hg] Ron Doreen Other [facility] Other 06-24-2023 11:40-0400 Body height 168.91 cm Ron Doreen Other [facility] Other 06-24-2023 11:40-0400 Body mass index (BMI) [Ratio] 29.89 kg/m2 Ron Doreen Other [facility] Other 06-24-2023 11:40-0400 Body temperature 97.3 [degF] Ron Doreen Other [facility] Other 06-24-2023 11:40-0400 Body weight 85.28 kg Ron Doreen Other [facility] Other 06-24-2023 11:40-0400 Diastolic blood pressure 75 mm[Hg] Ron Doreen Other [facility] Other 06-24-2023 11:40-0400 Respiratory rate 18 /min Ron Doreen Other [facility] Other 06-24-2023 11:40-0400 SaO2% (BldA) [Mass fraction] 99 % Ron Doreen Other [facility] Other 06-24-2023 11:40-0400 Systolic blood pressure 129 mm[Hg] Ron Doreen Other [facility] Other 06-06-2023 15:20-0400 Body height 168.91 cm Ron Doreen Other [facility] Other 06-06-2023 15:20-0400 Body mass index (BMI) [Ratio] 29.92 kg/m2 Ron Doreen Other [facility] Other 06-06-2023 15:20-0400 Body temperature 96.5 [degF] Ron Doreen Other [facility] Other 06-06-2023 15:20-0400 Body weight 85.37 kg Ron Doreen Other [facility] Other 06-06-2023 15:20-0400 Diastolic blood pressure 49 mm[Hg] Ron Doreen Other [facility] Other 06-06-2023 15:20-0400 Respiratory rate 18 /min Ron Doreen Other [facility] Other 06-06-2023 15:20-0400 SaO2% (BldA) [Mass fraction] 99 % Ron Doreen Other [facility] Other 06-06-2023 15:20-0400 Systolic blood pressure 128 mm[Hg] Ron Doreen Other [facility] Other 04-30-2023 11:40-0400 Body height 168.91 cm Ron Doreen Other [facility] Other 04-30-2023 11:40-0400 Body mass index (BMI) [Ratio] 30.52 kg/m2 Ron Doreen Other [facility] Other 04-30-2023 11:40-0400 Body temperature 96.9 [degF] Ron Doreen Other [facility] Other 04-30-2023 11:40-0400 Body weight 87.09 kg Ron Doreen Other [facility] Other 04-30-2023 11:40-0400 Diastolic blood pressure 80 mm[Hg] Ron Doreen Other [facility] Other 04-30-2023 11:40-0400 Respiratory rate 18 /min Ron Doreen Other [facility] Other 04-30-2023 11:40-0400 SaO2% (BldA) [Mass fraction] 98 % Ron Doreen Other [facility] Other 04-30-2023 11:40-0400 Systolic blood pressure 150 mm[Hg] Ron Doreen Other [facility] Other 04-06-2023 09:00-0400 Body height 168.91 cm Ron Doreen Other [facility] Other 04-06-2023 09:00-0400 Body mass index (BMI) [Ratio] 30.36 kg/m2 Ron Doreen Other [facility] Other 04-06-2023 09:00-0400 Body weight 86.64 kg Ron Doreen Other [facility] Other 04-06-2023 09:00-0400 Diastolic blood pressure 54 mm[Hg] Ron Doreen Other [facility] Other 04-06-2023 09:00-0400 Respiratory rate 18 /min Ron Doreen Other [facility] Other 04-06-2023 09:00-0400 SaO2% (BldA) [Mass fraction] 98 % Ron Doreen Other [facility] Other 04-06-2023 09:00-0400 Systolic blood pressure 144 mm[Hg] Ron Doreen Other [facility] Other 04-02-2023 14:40-0400 Body height 168.91 cm Ron Doreen Other [facility] Other 04-02-2023 14:40-0400 Body mass index (BMI) [Ratio] 30.55 kg/m2 Ron Doreen Other [facility] Other 04-02-2023 14:40-0400 Body temperature 97 [degF] Ron Doreen Other [facility] Other 04-02-2023 14:40-0400 Body weight 87.18 kg Ron Doreen Other [facility] Other 04-02-2023 14:40-0400 Diastolic blood pressure 76 mm[Hg] Ron Doreen Other [facility] Other 04-02-2023 14:40-0400 Respiratory rate 18 /min Ron Doreen Other [facility] Other 04-02-2023 14:40-0400 SaO2% (BldA) [Mass fraction] 98 % Ron Doreen Other [facility] Other 04-02-2023 14:40-0400 Systolic blood pressure 183 mm[Hg] Ron Doreen Other [facility] Other 03-07-2023 09:20-0400 Body height 168.91 cm Ron Doreen Other [facility] Other 03-07-2023 09:20-0400 Body mass index (BMI) [Ratio] 30.52 kg/m2 Ron Doreen Other [facility] Other 03-07-2023 09:20-0400 Body temperature 97.1 [degF] Ron Doreen Other [facility] Other 03-07-2023 09:20-0400 Body weight 87.09 kg Ron Doreen Other [facility] Other 03-07-2023 09:20-0400 Diastolic blood pressure 72 mm[Hg] Ron Doreen Other [facility] Other 03-07-2023 09:20-0400 Respiratory rate 18 /min Ron Doreen Other [facility] Other 03-07-2023 09:20-0400 SaO2% (BldA) [Mass fraction] 97 % Ron Doreen Other [email or web address] Other 03-07-2023 09:20-0400 Systolic blood pressure 130 mm[Hg] Ron Doreen Other [email or web address] Other 12-20-2022 13:20-0400 Body height 168.91 cm Ron Doreen Other [email or web address] Other 12-20-2022 13:20-0400 Body mass index (BMI) [Ratio] 30.68 kg/m2 Ron Doreen Other [email or web address] Other 12-20-2022 13:20-0400 Body temperature 97.1 [degF] Ron Doreen Other [email or web address] Other 12-20-2022 13:20-0400 Body weight 87.54 kg Ron Doreen Other [email or web address] Other 12-20-2022 13:20-0400 Diastolic blood pressure 72 mm[Hg] Ron Doreen Other [email or web address] Other 12-20-2022 13:20-0400 Respiratory rate 18 /min Ron Doreen Other [email or web address] Other 12-20-2022 13:20-0400 SaO2% (BldA) [Mass fraction] 99 % Ron Doreen Other [email or web address] Other 12-20-2022 13:20-0400 Systolic blood pressure 139 mm[Hg] Ron Doreen Other [email or web address] Other 11-05-2022 14:00-0500 Body height 168.91 cm Ron Doreen Other [email or web address] Other 11-05-2022 14:00-0500 Body mass index (BMI) [Ratio] 30.59 kg/m2 Ron Doreen Other [email or web address] Other 11-05-2022 14:00-0500 Body temperature 96.8 [degF] Ron Doreen Other [email or web address] Other 11-05-2022 14:00-0500 Body weight 87.27 kg Ron Doreen Other [email or web address] Other 11-05-2022 14:00-0500 Diastolic blood pressure 72 mm[Hg] Ron Doreen Other [email or web address] Other 11-05-2022 14:00-0500 Respiratory rate 18 /min Ron Doreen Other [email or web address] Other 11-05-2022 14:00-0500 SaO2% (BldA) [Mass fraction] 98 % Ron Doreen Other [email or web address] Other 11-05-2022 14:00-0500 Systolic blood pressure 157 mm[Hg] Ron Doreen Other [email or web address] Other 09-27-2022 16:00-0500 Body height 168.91 cm Jana Monson Other [email or web address] Other 09-27-2022 16:00-0500 Body mass index (BMI) [Ratio] 30.55 kg/m2 Jana Monson Other [email or web address] Other 09-27-2022 16:00-0500 Body temperature 96.8 [degF] Jana Monson Other [email or web address] Other 09-27-2022 16:00-0500 Body weight 87.18 kg Jana Monson Other [email or web address] Other 09-27-2022 16:00-0500 Diastolic blood pressure 73 mm[Hg] Jana Monson Other [email or web address] Other 09-27-2022 16:00-0500 Respiratory rate 18 /min Jana Monson Other [email or web address] Other 09-27-2022 16:00-0500 SaO2% (BldA) [Mass fraction] 98 % Jana Monson Other [email or web address] Other 09-27-2022 16:00-0500 Systolic blood pressure 159 mm[Hg] Jana Monson Other [email or web address] Other 08-22-2022 12:00-0500 Body height 168.91 cm Ron Doreen Other [email or web address] Other 08-22-2022 12:00-0500 Body mass index (BMI) [Ratio] 30.65 kg/m2 Ron Doreen Other [email or web address] Other 08-22-2022 12:00-0500 Body temperature 96.9 [degF] Ron Doreen Other [email or web address] Other 08-22-2022 12:00-0500 Body weight 87.45 kg Ron Doreen Other [email or web address] Other 08-22-2022 12:00-0500 Diastolic blood pressure 75 mm[Hg] Ron Doreen Other [email or web address] Other 08-22-2022 12:00-0500 Respiratory rate 18 /min Ron Doreen Other [email or web address] Other 08-22-2022 12:00-0500 SaO2% (BldA) [Mass fraction] 96 % Ron Doreen Other [email or web address] Other 08-22-2022 12:00-0500 Systolic blood pressure 121 mm[Hg] Ron Doreen Other [email or web address] Other 05-08-2022 10:20-0400 Body height 168.91 cm Ron Doreen Other [email or web address] Other 05-08-2022 10:20-0400 Body mass index (BMI) [Ratio] 31.54 kg/m2 Ron Doreen Other [email or web address] Other 05-08-2022 10:20-0400 Body temperature 97.6 [degF] Ron Doreen Other [email or web address] Other 05-08-2022 10:20-0400 Body weight 89.99 kg Ron Doreen Other [email or web address] Other 05-08-2022 10:20-0400 Diastolic blood pressure 68 mm[Hg] Ron Doreen Other [email or web address] Other 05-08-2022 10:20-0400 Respiratory rate 18 /min Ron Doreen Other [email or web address] Other 05-08-2022 10:20-0400 SaO2% (BldA) [Mass fraction] 98 % Ron Doreen Other [email or web address] Other 05-08-2022 10:20-0400 Systolic blood pressure 131 mm[Hg] Ron Doreen Other [email or web address] Other 01-18-2022 10:20-0400 Body height 168.91 cm Ron Doreen Other [email or web address] Other 01-18-2022 10:20-0400 Body mass index (BMI) [Ratio] 31 kg/m2 Ron Doreen Other [email or web address] Other 01-18-2022 10:20-0400 Body temperature 96.4 [degF] Ron Doreen Other [email or web address] Other 01-18-2022 10:20-0400 Body weight 88.45 kg Ron Doreen Other [email or web address] Other 01-18-2022 10:20-0400 Diastolic blood pressure 74 mm[Hg] Ron Doreen Other [email or web address] Other 01-18-2022 10:20-0400 Respiratory rate 18 /min Ron Doreen Other [email or web address] Other 01-18-2022 10:20-0400 SaO2% (BldA) [Mass fraction] 97 % Ron Doreen Other [email or web address] Other 01-18-2022 10:20-0400 Systolic blood pressure 170 mm[Hg] Ron Doreen Other [email or web address] Other Encounters Encounter Date Encounter Type Care Provider Facility Start: 12-21-2023 Refill Luis dominique PA-C Work Phone: [facility] Comment on above: Med Refill Start: 11-28-2023 End: 11-28-2023 ambulatory GREG COLLADOSOFIYA Not Available Start: 11-18-2023 End: 11-18-2023 ambulatory Ron Doreen Other [email or web address] Other Start: 11-18-2023 Office outpatient visit 15 minutes Ron Doreen [facility] Start: 11-05-2023 End: 11-05-2023 ambulatory GA CRESPO Not Available Start: 11-04-2023 (INJECTION) INJECTION Ron Doreen [facility] Start: 11-04-2023 End: 11-04-2023 ambulatory Ron Doreen Other [email or web address] Other Start: 10-22-2023 End: 10-22-2023 ambulatory GA H CRESPO Not Available Start: 10-15-2023 End: 10-15-2023 ambulatory Ron Doreen Other [email or web address] Other Start: 10-15-2023 Office outpatient visit 15 minutes Ron Doreen [facility] Start: 10-08-2023 End: 10-08-2023 ambulatory Mary Anne Ackerman Other [email or web address] Other Start: 10-08-2023 Telephone encounter Mary Anne Ackerman [facility] Start: 09-15-2023 End: 09-15-2023 ambulatory Ron Doreen Other [email or web address] Other Start: 09-15-2023 Telephone encounter Ron Doreen [facility] Start: 09-09-2023 End: 09-09-2023 ambulatory Ron Doreen Other [email or web address] Other Start: 09-09-2023 Telephone encounter Ron Doeren [facility] Start: 08-27-2023 (INJECTION) INJECTION Aziz Bakhous [facility] Start: 08-27-2023 End: 08-27-2023 ambulatory Aziz Bakhous Other [email or web address] Other Start: 08-15-2023 (INJECTION) INJECTION Ron Doreen [facility] Start: 08-15-2023 End: 08-15-2023 ambulatory Ron Doreen Other [email or web address] Other Start: 08-13-2023 (INJECTION) INJECTION Ron Doreen [facility] Start: 08-13-2023 End: 08-13-2023 ambulatory Ron Doreen Other [email or web address] Other Start: 08-01-2023 End: 08-01-2023 ambulatory Ron Doreen Other [email or web address] Other Start: 08-01-2023 Office outpatient visit 15 minutes Ron Doreen [facility] Start: 06-24-2023 End: 06-24-2023 ambulatory Ron Doreen Other [email or web address] Other Start: 06-24-2023 Office outpatient visit 10 minutes Ron Doreen [facility] Start: 06-06-2023 End: 06-06-2023 ambulatory Ron Doreen Other [email or web address] Other Start: 06-06-2023 Office outpatient visit 15 minutes Ron Doreen [facility] Start: 04-30-2023 End: 04-30-2023 ambulatory Ron Doreen Other [email or web address] Other Start: 04-30-2023 Office outpatient visit 15 minutes Ron Doreen [facility] Start: 04-06-2023 (INJECTION) INJECTION Ron Doreen [facility] Start: 04-06-2023 End: 04-06-2023 ambulatory Ron Doreen Other [email or web address] Other Start: 04-06-2023 Telephone encounter Ron Doreen [facility] Start: 04-02-2023 End: 04-02-2023 ambulatory Ron Doreen Other [email or web address] Other Start: 04-02-2023 Office outpatient visit 15 minutes Ron Doreen [facility] Start: 04-02-2023 Telephone encounter Ron Doreen [facility] Start: 03-07-2023 End: 03-07-2023 ambulatory Ron Doreen Other [email or web address] Other Start: 03-07-2023 Office outpatient visit 15 minutes Ron Doreen [facility] Start: 01-22-2023 End: 01-23-2023 ambulatory RON DOREEN Facility:[facility] Start: 12-20-2022 End: 12-20-2022 ambulatory Ron Doreen Other [email or web address] Other Start: 12-20-2022 Office outpatient visit 15 minutes Ron Odreen [facility] Start: 12-17-2022 End: 12-18-[address] DHRUV RUBI . Facility:[facility] Start: 12-10-2022 End: 12-11-2022 ambulatory RON DOREEN Facility:[facility] Start: 11-20-2022 End: 11-21-[address] BENI APARICOI Facility:[facility] Start: 11-05-2022 End: 11-05-2022 ambulatory Ron Doreen Other [email or web address] Other Start: 11-05-2022 Office outpatient visit 15 minutes Ron Doreen [facility] Start: 10-29-2022 End: 10-30-[address] JANA MONSON Facility:[facility] Start: 10-24-2022 End: 10-24-[address] LILLIAN ACOSTA . Facility:[facility] Start: 10-24-2022 End: 10-25-[address] DHRUV RUBI . Facility:[facility] Start: 09-27-2022 End: 09-27-2022 ambulatory Jana Monson Other [email or web address] Other Start: 09-27-2022 Office outpatient visit 15 minutes Jana Monson [facility] Start: 09-18-2022 End: 09-19-2022 ambulatory RON DOREEN Facility:[facility] Start: 09-11-2022 End: 09-11-[address] DHRUV RUBI . Facility:[facility] Start: 08-22-2022 End: 08-22-2022 ambulatory Ron Doreen Other [email or web address] Other Start: 08-22-2022 Office outpatient visit 15 minutes Ron Doreen [facility] Start: 08-13-2022 End: 08-14-2022 ambulatory RON DOREEN Facility:[facility] Start: 06-25-2022 End: 06-26-[address] DHRUV RUBI . Facility:[facility] Start: 06-18-2022 End: 06-18-[address] DHRUV RUBI . Facility:[facility] Start: 06-01-2022 End: 06-02-[address] YANET HUERTA Facility:[facility] Start: 05-28-2022 End: 05-28-2022 ambulatory Ron Doreen Other [email or web address] Other Start: 05-28-2022 Telephone encounter Ron Doreen [facility] Start: 05-21-2022 End: 05-22-[address] DHRUV RUBI . Facility: Start: 05-16-2022 End: 05-16-2022 ambulatory Ron Doreen Other [email or web address] Other Start: 05-16-2022 Telephone encounter Ron Doreen [facility] Start: 05-10-2022 End: 05-10-2022 ambulatory Ron Doreen Other [email or web address] Other Start: 05-10-2022 Telephone encounter Ron Doreen [facility] Start: 05-08-2022 End: 05-08-2022 ambulatory Ron Doreen Other [email or web address] Other Start: 05-08-2022 Office outpatient visit 25 minutes Ron Doreen [facility] Start: 05-02-2022 End: 05-03-2022 ambulatory RON DOREEN Facility:[facility] Start: 04-24-2022 End: 04-24-2022 ambulatory Aziz Bakhous Other [email or web address] Other Start: 04-24-2022 Telephone encounter Aziz Bakhous [facility] Start: 01-18-2022 End: 01-18-2022 ambulatory Ron Doreen Other [email or web address] Other Start: 01-18-2022 Office outpatient visit 25 minutes Ron Doreen [facility] Start: 05-21-2017 End: 05-22-2017 Ambulatory DEFAULT PHYSICIAN Facility:[facility] Procedures Date Procedure Procedure Detail Performing [...] 03-19-2024 Adult BMI Screening Adult BMI Screening [facility] Start: 03-19-2024 Tobacco Screening Tobacco Screening [facility] Start: 06-07-2023 COVID-19 Vaccine () COVID-19 Vaccine ( season) [facility] Start: 06-07-2023 Influenza vaccination Influenza Vaccine [facility] Start: 12-28-2021 Depression Screening Depression Screening [facility] Start: 2009 Fall Risk Screening Fall Risk Screening [facility] Start: 1994 Administration of varicella zoster vaccine Zoster (Shingles) Vaccine (1 of 2) [facility] Start: 12-15-1963 DTaP,Tdap and Td Vaccines (1 - Tdap) DTaP,Tdap and Td Vaccines (1 - Tdap) [facility] Start: 1962 Adult BMI Follow Up Plan Adult BMI Follow Up Plan [facility] Start: 1944 Medicare Annual Wellness Visit Medicare Annual Wellness Visit [facility] Immunizations Immunization Date Immunization Notes Care Provider Fa cili 07-18-2020 Seasonal trivalent influenza vaccine, adjuvanted, preservative free Luis Quiles PA-C Work Phone: [facility] 07-18-2020 influenza virus vacc ine, unspecified formulation Luis Quiles PA-C Work Phone: [facility] 07-22-2019 Seasonal trivalent influenza vaccine, adjuvanted, preservative free Luis Quiles PA-C Work Phone: [facility] 07-14-2018 Seasonal trivalent influenza vaccine, adjuvanted, preservative free Luis Quiles PA-C Work Phone: [facility] 07-15-2017 pneumococcal conjuga te vaccine, 13 valent Luis Quiles PA-C Work Phone: [facility] 07-08-2017 influenza, high dose seasonal, preservative-free Luis Kb PA-C Work Phone: [facility] 07-25-2016 influenza, high dose seasonal, preservative-free Luis Kb PA-C Work Phone: [facility] 07-11-2015 influenza, high dose seasonal, preservative-free Luis Kb PA-C Work Phone: [facility] 07-16-2014 influenza, seasonal, injectable Luis Kb PA-C Work Phone: [facility] 07-10-2013 influenza, seasonal, injectable Luis Kb PA-C Work Phone: [facility] 08-08-2012 influenza virus vacc ine, unspecified formulation Luis Kb PA-C Work Phone: [facility] 08-08-2012 pneumococcal polysaccharide vaccine, 23 valent Luis Kb PA-C Work Phone: [facility] 07-11-2011 influenza virus vacc ine, unspecified formulation Luis Kb PA-C Work Phone: [facility] 08-15-2010 influenza virus vacc ine, unspecified formulation Luis Kb PA-C Work Phone: [facility] 07-26-2009 influenza virus vacc ine, unspecified formulation Luis Kb PA-C Work Phone: [facility] 08-04-2008 influenza virus vacc ine, unspecified formulation Luis Kb PA-C Work Phone: [facility] 08-13-2007 influenza virus vacc ine, unspecified formulation Luis Kb PA-C Work Phone: [facility] 08-11-2004 influenza virus vacc ine, unspecified formulation Luis Kb PA-C Work Phone: [facility] 08-09-2003 influenza virus vacc ine, unspecified formulation Luis Kb PA-C Work Phone: [facility] 08-09-2003 pneumococcal polysaccharide vaccine, 23 valent Luis Quiles PA-C Work Phone: [facility] Payers Date Payer Category Payer Medicare [employer] MEDICARE A ETNA MEDICARE PLAN (HMO) [id number] 2021-Present [phone] [address] [place] [address] [id number] 1960 Medicare [id number] 1944 Unknown [id number] [id number] 1944 Unknown [id number] [id number]3 1944 Unknown [id number] 2.16.840.1.334002.3.579.2.593 1944 Unknown [id number] 2.16.840.1.281189.3.579.2.593 1944 Unknown [id number] 2.16.840.1.543571.3.579.2.593 1944 Unknown [id number] 2.16.840.1.857726.3.579.2.593 1944 Unknown [id number] 2.16.840.1.677277.3.579.2.593 1944 Unknown [id number] 2.16.840.1.216842.3.579.2.593 1944 Unknown [id number] 2.16.840.1.552748.3.579.2.593 1944 Unknown [id number] 2.16.840.1.091674.3.579.2.593 1944 Unknown [id number] 2.16.840.1.852993.3.579.2.593 1944 Unknown [id number] 2.16.840.1.168191.3.579.2.593 1944 Unknown [id number] 2.16.840.1.951373.3.579.2.593 1944 Unknown [id number] 2.16.840.1.577461.3.579.2.593 1944 Unknown [id number] 2.16.840.1.398245.3.579.2.593 1944 Unknown [id number] 2.16.840.1.346800.3.579.2.593 1944 Unknown [id number] 2.16.840.1.811970.3.579.2.1259 1944 Unknown [id number] 2.16.840.1.728119.3.579.2.1259 1944 Unknown [id number] 2.16.840.1.609086.3.579.2.1259 Unknown Social History Date Type Detail Facility Unknown if ever smoked [email or web address] Other Start: 12-28-2020 End: 03-19-2023 Sex Assigned At [email or web address] Other Start: 09-20-2022 Tobacco smoking status WVIS Ex-smoker [facility] End: 10-07-1969 History of tobacco use Current smoker [facility] End: 10-07-1969 History of tobacco use Cigarette Smoker [facility] Start: 09-20-2022 Tobacco use and exposure Smokeless tobacco non-user [facility] Start: 03-19-2023 Alcohol intake Ex-drinker (finding) [facility] Start: 12-28-2020 End: 03-19-2023 History of Social function [facility] Do you belong to any clubs or organizations such as orthodoxy groups, unions, fraternal or athletic groups, or school groups? No [facility] Are you now , , , , never or living with a partner? [facility] How hard is it for y ou to pay for the very basics like food, housing, medical care, and heating Not hard at all [facility] Do you feel stress - tense, restless, nervous, or anxious, or unable to sleep at night because your mind is troubled all the time - these days [OSQ] Not at all [facility] [facility] Start: 1945 [facility] Go[facility] Date Patient Goal Desired [...] potassium improved with dietary restriction and Lasix. [email or web address] Other 01-29-2024 Evaluation note* Encounter Date Diagnosis Assessment Notes Treatment Notes Treatment Clinical Notes Oct, Anemia of renal disease (ICD-10 - D63.1) Oct, CKD (chronic kidney disease) stage 4, GFR 15-29 ml/min (ICD-10 - N18.4) [email or web address] Other 01-09-2024 Evaluation note* Encounter Date Diagnosis [...] potassium improved with dietary restriction and Lasix. [email or web address] Other 12-04-2023 Evaluation note* Encounter Date Diagnosis [...] 4, GFR 15-29 ml/min (ICD-10 - N18.4) [email or web address] Other 11-21-2023 Evaluation note* Encounter Date Diagnosis Assessment Notes Treatment Notes Treatment Clinical Notes Aug, Anemia of renal disease (ICD-10 - D63.1) Aug, CKD (chronic kidney disease) stage 4, GFR 15-29 ml/min (ICD-10 - N18.4) [email or web address] Other 11-09-2023 Evaluation note* Encounter Date Diagnosis [...] of kidney mass hydronephrosis or kidney stones. [email or web address] Other 10-26-2023 Evaluation note* Encounter Date Diagnosis [...] potassium improved with dietary restriction and Lasix. [email or web address] Other 09-18-2023 Evaluation note* Encounter Date Diagnosis [...] potassium improved with dietary restriction and Lasix. [email or web address] Other 08-31-2023 Evaluation note* Encounter Date Diagnosis [...] potassium improved with dietary restriction and Lasix. [email or web address] Other 07-25-2023 Evaluation note* Encounter Date Diagnosis [...] to normal with dietary restriction and Lasix. [email or web address] Other 07-01-2023 Evaluation note* Encounter Date Diagnosis Assessment Notes Treatment Notes Treatment Clinical Notes Apr, CKD (chronic kidney disease) stage 4, GFR 15-29 ml/min (ICD-10 - N18.4) Apr, Anemia of renal disease (ICD-10 - D63.1) [email or web address] Other 06-27-2023 Evaluation note* Encounter Date Diagnosis [...] to normal with dietary restriction and Lasix. [email or web address] Other 06-01-2023 Evaluation note* Encounter Date Diagnosis [...] potassium diet and provide information about it. [email or web address] Other 03-16-2023 Evaluation note* Encounter Date Diagnosis [...] to Continue Vit D 5000 units daily [email or web address] Other 01-30-2023 Evaluation note* Encounter Date Diagnosis [...] to Continue Vit D 5000 units daily [email or web address] Other 12-22-2022 Evaluation note* Encounter Date Diagnosis [...] to Continue Vit D 5000 units daily [email or web address] Other 11-16-2022 Evaluation note* Encounter Date Diagnosis [...] to Continue Vit D 5000 units daily [email or web address] Other 08-04-2022 Evaluation note* Encounter Date Diagnosis Assessment Notes Treatment Notes Treatment Clinical Notes May, Hypertensive chronic kidney disease with stage 1 through stage 4 chronic kidney disease, or unspecified chronic kidney disease (ICD-10 - I12.9) [email or web address] Other 08-02-2022 Evaluation note* Encounter Date Diagnosis [...] to Continue Vit D 5000 units daily [email or web address] Other 07-19-2022 Evaluation note* Encounter Date Diagnosis Assessment Notes Treatment Notes Treatment Clinical Notes Apr, Hypertensive chronic kidney disease with stage 1 through stage 4 chronic kidney disease, or unspecified chronic kidney disease (ICD-10 - I12.9) [email or web address] Other 04-14-2022 Evaluation note* Encounter Date Diagnosis [...] to take Vit D 1000 units daily [email or web address] Other Evaluation noteNo InformationNort [employer] Other Evaluation note* Diagnosis 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 01/01/2021 Hospitalization History ELEVATED BLOOD PRESSURE Hospitalization History SEE ABOVE Hospitalization History COVID 09/2020 [facility] Other InstructionsNot on filedocumented in this encounter [facility] Summary Purpose Family History No Family History Records FoundNo Family History Records FoundNo Family History Records Found Advance Directives Latest Code Status on File Code Status Date Activated Date Inactivated Comments Full Code 12/28/2020 2:33 PM 01/03/2021 7:38 PM Additional Source Comments INFORMATION SOURCE (unrecogn ized section and content) DATE CREATED AUTHOR 04/02/2018 [facility] DATE CREATED AUTHOR AUTHOR'S ORGANIZ ATION 01/27/2023 [facility] DATE CREATED AUTHOR AUTHOR'S ORGANIZ ATION 12/06/2023 [facility] EPIC REASON FOR VISIT (unrecogniz ed section and content) Reason Comments Med Refill Care Teams (unrecognized sec tion and content) Development Spec Relationship Specialty Start Date End Date Dhruv Rubi MD [address] [place] [address] PCP - General Family Medicine 10/20/20 FOR [...] BE BASED ON THE PRIMARY CLINICAL RECORDS. [facility]. provides no warranty or guarantee of the accuracy or completeness of information in this document.
[2024-01-10 07:03] LABS: Anion Gap 16.2; BUN Creatinine Ratio 17.6; Calcium 9.1 mg/dL (8.5-10.1); Carbon Dioxide 22.2 mmol/L (21.0-32.0); Chloride 105 mmol/L (98-107); Estimated GFR (African America 29 (>=60); Estimated GFR (Non-African Ame 24 (>=60); Glucose 104 mg/dL (74-106); Potassium 5.4 mmol/L (3.5-5.1); Sodium 138 mmol/L (136-145)
== END 2024-01-10 06:30 | disposition home or self-care (01) ==
LOC: LAB 06:31
PROVIDERS: PCP Family Medicine; Visit Provider Family Medicine
DX: N18.4 Chronic kidney disease, stage 4 (severe) (principal)
CPT/HCPCS: 36415; 80048

== ENCOUNTER 2024-01-21 06:43 | Outpatient (OUT) | payer MEDICARE, SELFPAY ==
--- OUTSIDE RECORDS SUMMARY | 2024-01-21 06:49 | XMS_ITS | CCD ---
Author Organization [facility] Care Team Providers Care Last Picker Name Role Phone PHYSICIAN, DEFAULT Unavailable Unavailable [...] DR BARTLETT Primary Care Unavailable ELASHI, DR SKINENR Attending Unavailable ELASHI, DR SKINNER Admitting Unavailable WEST, DR BENI Sharif Consulting Unavailable HOY ., DR BARTLETT Primary Care Unavailable MARVIN, ERNESTINA Attending Unavailable MARVIN, ERNESTINA Admitting Unavailable MARVIN, ERNESTINA Consulting Unavailable DOREEN, RON Consulting Unavailable HOY ., DR BARLTETT Primary Care Unavailable DOREEN, RON Attending Unavailable [...] RON Attending Unavailable DOREEN, RON Admitting Unavailable Dhruv Rubi MD Primary Care Provider [phone] GA CRESPO Attending Unavailable GA CRESPO Attending Unavailable GREG TINEO Attending Unavailable GA CRESPO Attending Unavailable THUAN DELVALLE Attending Unavailable DHRUV RUBI Referring Unavailable DHRUV RUBI Primary Care Unavailable Allergies Allergy Classification Reported Allergen(s) Allergy Type Date of Onset Reaction(s) Facility (20 sources) amLODIPine; Translations: [AMLODIPINE] Drug Allergy 03-28-20 05 [facility] (20 sources) Amoxicillin / Clavulanate Drug Allergy 11-23-19 21 [facility] Other (20 sources) Contrast media Propensity to adverse reactions Unknown [facility] Other (2 sources) Doxazosin; Translations: [doxazosin] Drug Allergy Unknown [facility] Other (20 sources) Sulfamethoxazole / Trimethoprim Drug Allergy 11-23-19 [facility] Other (20 sources) Doxazosin; Translations: [DOXAZOSIN] Drug Allergy 11-23-19 Unknown [facility] Other (9 sources) Amoxicillin / Clavulanate; Translations: [Augmentin] Drug Allergy 11-16-19 16 Unknown [facility] (1 source) amLODIPine Drug Allergy 04-25-20 14 [facility] (1 source) Sulfamethoxazole / Trimethoprim Drug Allergy 03-09-20 13 [facility] (2 sources) Iodinated Contrast Media; Translations: [IODINATED CONTRAST MEDIA] Propensity to adverse reactions to drug 11-23-19 [facility] (1 source) Sulfamethoxazole / Trimethoprim; Translations: [SULFAMETHOXAZOLE-T RIMETHOPRIM] [facility] AMOXICILLIN-POT CLAVULANATE; Translations: [AMOXICILLIN-POT CLAVULANATE] Propensity to adverse reactions to drug (disorder) 11-23-19 [facility] Medic[facility] Current Medications Medication Drug Class(es) [...] coronary artery bypass graft , Atherosclerosis of [place] coronary artery of [place] heart without angina pectoris , Paroxysmal atrial [...] (LIPITOR) 80 mg tablet Indications: Atherosclerosis of [place] coronary artery of [place] heart without angina pectoris , H/O four [...] Orally every 12 hours Active epoetin johnna-epbx 20462 UNT/ML Injectable Solution [Retacrit] (14 sources) Retacrit 34440 U NIT/ML as directed Injection Active ferrous [...] 0 Active take 1 tablet by enzo th [...] 12/05/2021 Active take 2 tablets by mo [facility] every twenty-four hours Liothyronine Sodium 5 MCG 2 tablets on a n empty stomach Orally Once a day Active take 2 tablets by mo [facility] every twenty-four hours lisinopril 10 mg [...] tablet (20 sources) Proton Pump Inhibitor Start: 1 take 1 tablet by mouth in the morning pantoprazole (PROTONIX) 40 mg EC tablet Take 1 tablet (40 mg total) by mouth in the morning. 0 12/19/2020 Active retacrit 59068 unit/ml solution (5 sources) Retacrit 13212 UNIT/ML as directed Injection Active Sennosides-Docusate Sodium [...] BRONCHITIS UNSPECIFIED] Onset: 3 Episodic Cardiac dysrhythmias (4 sources) Paroxysmal atrial fibrillation; Translations: [Paroxysmal atrial fibrillation] Onset: 1 12-21-2023 Chronic Chronic kidney disease (20 sources) Chronic kidney disease stage 3; Translations: [Chronic kidney disease, stage 3 (moderate)] Onset: 2 Resolved: 2 Chronic Congestive heart failure; nonhypertensive (1 source) Unspecified diastolic (congestive) heart failure; Translations: [UNSPECIFIED DIASTOLIC HEART FAILURE] Onset: 2 Chronic Coronary atherosclerosis and other heart disease (5 sources) Coronary atherosclerosis; Translations: [Atherosclerotic heart disease of [place] coronary artery without angina pectoris] Onset: 1 [...] disease, or unspecified chronic kidney disease] Onset: 1 Resolved: 2 Chronic Nonspecific chest pain (1 [...] Resolved: 2 Chronic Other lower respiratory disease (3 sources) Dyspnea; Translations: [Shortness of breath] Onset: 4 12-21-2023 Episodic Other nutritional; endocrine; and metabolic [...] Localized edema; Translations: [Localized edema] 12-21-2023 Episodic Residual codes; unclassified (1 source) Localized edema; Translations: [Localized edema] Onset: 4 Episodic Unclassified (3 sources) CONTACT W/AND (SUSP) EXPOS COVID-19; Translations: [CONTACT W/AND (SUSP) EXPOS COVID-19] Onset: 2 Unclassified (3 sources) OTHER LOW BACK PAIN; Translations: [OTHER LOW BACK PAIN] Onset: 2 Unclassified (1 source) Hospital Follow-up Onset: 4 Past or Other Problems Problem Classification Problem Date Documented Da te Episodic/Chronic Blindness and vision defects (1 source) Unspecified visual disturbance; Translations: [UNSPECIFIED VISUAL DISTURBANCE] Onset: 09-13-2022 Episodic Conditions associated with dizziness or vertigo (1 source) Dizziness and giddiness; Translations: [DIZZINESS AND GIDDINESS] Onset: 09-13-2022 Episodic Coronary atherosclerosis and other heart disease (1 source) Presence of aortocoronary bypass graft; Translations: [Presence of aortocoronary bypass graft] Onset: 01-11-2021 Episodic Genitourinary symptoms and ill-defined conditions (1 [...] LUMB SUB DLAY HL] Onset: 06-25-2022 Episodic Other lower respiratory disease (1 source) Shortness of breath; Translations: [Shortness of breath] Onset: 11-23-2020 Episodic Residual codes; unclassified (1 source) Procedure [...] [Volume fraction] 28.8 % Critically low 36.0-48.0 [facility] Comment on above: Performed By: #### H H #### [facility] [address] [place], [place] [address] Dr. Emebr Teague Hemoglobin (Bld) [Mass/Vol] 9.6 g/dL Critically low 12.0-16.0 [facility] Comment on above: Performed By: #### H H #### [facility] [address] [address] [address] Ember Teague MCH (RBC) [Entitic mass] 30.7 pg Normal 26.7-34.0 [facility] Comment on above: Performed By: #### H H #### [facility] [address] [place] [address] Dr. Ember Teague MCHC (RBC) [Mass/Vol] 33.3 g/dL Normal 29.9-35.2 [facility] Comment on above: Performed By: #### H H #### [facility] [address] [place] [address] Dr. Ember Teague MCV (RBC) [Entitic vol] 92.0 fL Normal 81.0-99.0 [facility] Comment on above: Performed By: #### H H #### [facility] [address] [place] [address] Dr. Ember Teague PLT 214 103/ul Normal 150-450 [facility] Comment on above: Performed By: #### H H #### [facility] [address] [place] [address] Dr. Ember Teague RBC 3.13 106/ul Critically low 4.20-5.40 [facility] Comment on above: Performed By: #### H H #### [facility] [address] [place] [address] Dr. Ember Teague WBC 7.4 103/ul Normal 4.0-11.0 [facility] Comment on above: Performed By: #### H H #### [facility] [address] [place] [address] Dr. Ember Teague MAGNESIUMon 01-22-2023 Magnesium [Mass/Vol] 1.8 mg/dL Normal 1.8-2.4 [facility] Comment on above: Performed By: #### M G, RENAL #### [facility] [address] [place] [address] Dr. Ember Teague RENAL FUNCTION PANELon 01-22 Albumin [Mass/Vol] 3.6 g/dL Normal 3.4-5.0 [facility] Comment on above: Performed By: #### M G, RENAL #### [facility] [address] [address] [address] Ember Teague Calcium [Mass/Vol] 9.7 mg/dL Normal 8.5-10.1 [facility] Comment on above: Performed By: #### M G, RENAL #### [facility] [address] [address] [address] Ember Teague Chloride [Moles/Vol] 105 mmol/L Normal 98-107 [facility] Comment on above: Performed By: #### M G, RENAL #### [facility] [address] [address] [address] Ember Teague CO2 [Moles/Vol] 22.6 mmol/L Normal 21.0-32.0 [facility] Comment on above: Performed By: #### M G, RENAL #### [facility] [address] [place] [address] Dr. Ember Teague Creatinine [Mass/Vol] 2.18 mg/dL Critically high 0.55-1.02 [facility] Comment on above: Performed By: #### M G, RENAL #### [facility] [address] [place] [address] Dr. Ember Teague EGFR-AF GUYANESE 26 mL/min/1.73m2 Critically low >=60 [facility] Comment on above: Performed By: #### M G, RENAL #### [facility] [address] [place] [address] Dr. Ember Teague EGFR-NON AF GUYANESE 22 mL/min/1.73m2 Critically low >=60 [facility] Comment on above: Performed By: #### M G, RENAL #### [facility] [address] [address] [address] Ember Teague Glucose [Mass/Vol] 134 mg/dL Critically high 74-[address] [facility] Comment on above: Performed By: #### M G, RENAL #### [facility] [address] [address] [address] Ember Teague Phosphate [Mass/Vol] 4.6 mg/dL Normal 2.6-4.7 [facility] Comment on above: Performed By: #### M G, RENAL #### [facility] [address] [place], [place] [address] Dr. Ember Teague Potassium [Moles/Vol] 5.1 mmol/L Normal 3.5-5.1 [facility] Comment on above: Performed By: #### M G, RENAL #### [facility] [address] [address] [address] Ember Teague Sodium [Moles/Vol] 138 mmol/L Normal 136-145 [facility] Comment on above: Performed By: #### M G, RENAL #### [facility] [address] [place], [place] [address] Dr. Ember Teague Urea nitrogen [Mass/Vol] 61.0 mg/dL Critically high 7.0-18.0 [facility] Comment on above: Performed By: #### M G, RENAL #### [facility] [address] [address] [address] Ember Teague MG MAMM SCREEN 3D MAY CADon 12-17-2022 MG MAMM SCREEN 3D MAY CAD Patient: KYLAH BERGER Exam Date: 12/17/2022 : 1945 Gender:F Ordering : DR DHRUV RUBI . Admission #: [id number] Family : Order #: [id number] CLICK HERE TO VIEW EXAM RADIOLOGY REPORT [...] lung cancer at age 61. LOCATION: [facility] BREAST COMPOSITION: Scattered areas fibroglandular density. [...] Aparicio MD on 12/17/2022 at 11:59 Normal [facility] FERRITINon 12-10-2022 Ferritin [Mass/Vol] 681.0 ng/mL Critically high 8.0-252.0 [facility] Comment on above: Performed By: #### P THINT #### [facility] [address] [place] [address] Dr. Ember Teague HEMOGRAM AND PLATELon 2022 Hematocrit (Bld) [Volume fraction] 27.1 % Critically low 36.0-48.0 [facility] Comment on above: Performed By: #### C VDTBH #### [facility] [address] [place] [address] Dr. Ember Teague Hemoglobin (Bld) [Mass/Vol] 9.7 g/dL Critically low 12.0-16.0 [facility] Comment on above: Performed By: #### C VDTBH #### [facility] [address] [place] [address] Dr. Ember Teague MCH (RBC) [Entitic mass] 31.4 pg Normal 26.7-34.0 [facility] Comment on above: Performed By: #### C VDTBH #### [facility] [address] [place] [address] Dr. Ember Teague MCHC (RBC) [Mass/Vol] 35.8 g/dL Critically high 29.9-35.2 [facility] Comment on above: Performed By: #### C VDTBH #### [facility] [address] [place] [address] Dr. Ember Teague MCV (RBC) [Entitic vol] 87.7 fL Normal 81.0-99.0 [facility] Comment on above: Performed By: #### C VDTBH #### [facility] [address] [place] [address] Dr. Ember Teague PLT 218 103/ul Normal 150-450 [facility] Comment on above: Performed By: #### C VDTBH #### [facility] [address] [address] [address] Ember Teague RBC 3.09 106/ul Critically low 4.20-5.40 [facility] Comment on above: Performed By: #### C VDTBH #### [facility] [address] [address] [address] Ember Teague WBC 6.6 103/ul Normal 4.0-11.0 [facility] Comment on above: Performed By: #### C VDTBH #### [facility] [address] [address] [address] Ember Teague IRON AND TIBCon 12-10-2022 % SATURATION 30.2 % Normal [facility] Comment on above: Performed By: #### P THINT #### [facility] [address] [address] [address] Ember Teague Iron [Mass/Vol] 84.0 ug/dL Normal 50.0-170.0 [facility] Comment on above: Performed By: #### P THINT #### [facility] [address] [address] [address] Ember Teague TIBC DIRECT 278.0 ug/dL Normal 250.0-450.0 [facility] [place] [facility] Comment on above: Performed By: #### P THINT #### [facility] [address] [address] [address] Ember Teague XR FOOT MAY MIN [...] BENI APARICIO Date: 2022-11-20 14:03 Normal [facility] HEMOGRAM AND PLATELon 2022 Hematocrit (Bld) [Volume fraction] 27.7 % Critically low 36.0-48.0 [facility] Comment on above: Performed By: #### R ENAL #### [facility] [address] [place] [address] Dr. Ember Teague Hemoglobin (Bld) [Mass/Vol] 10.0 g/dL Critically low 12.0-16.0 [facility] Comment on above: Performed By: #### R ENAL #### [facility] [address] [place] [address] Dr. Ember Teague MCH (RBC) [Entitic mass] 31.6 pg Normal 26.7-34.0 [facility] Comment on above: Performed By: #### R ENAL #### [facility] [address] [place] [address] Dr. Ember Teague MCHC (RBC) [Mass/Vol] 36.1 g/dL Critically high 29.9-35.2 [facility] Comment on above: Performed By: #### R ENAL #### [facility] [address] [place] [address] Dr. Ember Teague MCV (RBC) [Entitic vol] 87.7 fL Normal 81.0-99.0 [facility] Comment on above: Performed By: #### R ENAL #### [facility] [address] [place] [address] Dr. Ember Teague PLT 182 103/ul Normal 150-450 [facility] Comment on above: Performed By: #### R ENAL #### [facility] [address] [place] [address] Dr. Ember Teague RBC 3.16 106/ul Critically low 4.20-5.40 [facility] Comment on above: Performed By: #### R ENAL #### [facility] [address] [place] [address] Dr. Ember Teague WBC 6.8 103/ul Normal 4.0-11.0 [facility] Comment on above: Performed By: #### R ENAL #### [facility] [address] [address] [address] Ember Teague PROF CHEM 8 (BAS METB)on Anion gap [Moles/Vol] 17.6 mmol/L Normal [facility] Comment on above: Performed By: #### C VDTBH #### [facility] [address] [place] [address] Dr. Ember Teague Calcium [Mass/Vol] 9.0 mg/dL Normal 8.5-10.1 [facility] Comment on above: Performed By: #### C VDTBH #### [facility] [address] [place] [address] Dr. Ember Teague Chloride [Moles/Vol] 104 mmol/L Normal 98-107 [facility] Comment on above: Performed By: #### C VDTBH #### [facility] [address] [address] [address] Ember Teague CO2 [Moles/Vol] 22.2 mmol/L Normal 21.0-32.0 [facility] Comment on above: Performed By: #### C VDTBH #### [facility] [address] [place] [address] Dr. Ember Teague Creatinine [Mass/Vol] 2.03 mg/dL Critically high 0.55-1.02 [facility] Comment on above: Performed By: #### C VDTBH #### [facility] [address] [place] [address] Dr. Ember Teague EGFR-AF GUYANESE 29 mL/min/1.73m2 Critically low >=60 [facility] Comment on above: Performed By: #### C VDTBH #### [facility] [address] [place] [address] Dr. Ember Teague EGFR-NON AF GUYANESE 24 mL/min/1.73m2 Critically low >=60 [facility] Comment on above: Performed By: #### C VDTBH #### [facility] [address] [address] [address] Ember Teague Glucose [Mass/Vol] 154 mg/dL Critically high 74-106 [facility] Comment on above: Performed By: #### C VDTBH #### [facility] [address] [address] [address] Ember Teague Potassium [Moles/Vol] 4.8 mmol/L Normal 3.5-5.1 [facility] Comment on above: Performed By: #### C VDTBH #### [facility] [address] [address] [address] Ember Teague Sodium [Moles/Vol] 139 mmol/L Normal 136-145 [facility] Comment on above: Performed By: #### C VDTBH #### [facility] [address] [place] [address] Dr. Ember Teague Urea nitrogen [Mass/Vol] 43.0 mg/dL Critically high 7.0-18.0 [facility] Comment on above: Performed By: #### C VDTBH #### [facility] [address] [place] [address] Dr. Ember Teague Urea nitrogen/Creatinine [Mass ratio] 21.2 mg/mg [facility] Comment on above: Performed By: #### C VDTBH #### [facility] [address] [place] [address] Dr. Ember Teague CULTURE SPUTUMon 10-24-2022 CULTURE SPUTUM Culture Observations : Beta lactamase positive Isolate 1 Haemophilus influenzae Moderate growth of [facility] Comment on above: Performed By: #### R ENAL #### [facility] [address] [place] [address] Dr. Ember Teague SPUTUM GRAM STAINon 10-24-19 COMMENTS Normal [facility] Comment on above: Performed By: #### R ENAL #### [facility] [address] [place] [address] Dr. Ember Teague DIPHTHEROIDS [facility] Comment on above: Performed By: #### R ENAL #### [facility] [address] [address] [address] Ember Teague EPITHELIALS >25 Normal [facility] Comment on above: Performed By: #### R ENAL #### [facility] [address] [address] [address] Ember Teague FUNGAL ELEMENTS Normal [facility] Comment on above: Performed By: #### R ENAL #### [facility] [address] [address] [address] Ember Teague GRAM NEG BACILLI Normal [facility] Comment on above: Performed By: #### R ENAL #### [facility] [address] [address] [address] Ember Teague GRAM NEG DIPPLOCOCCI FEW Normal [facility] Comment on above: Performed By: #### R ENAL #### [facility] [address] [place] [address] Dr. Ember Teague GRAM POS BACILLI FEW Normal [facility] Comment on above: Performed By: #### R ENAL #### [facility] [address] [address] [address] Ember Teague GRAM POSITIVE COCCI MANY Normal [facility] Comment on above: Performed By: #### R ENAL #### [facility] [address] [address] [address] Ember Teague WBC (Bld) [#/Vol] 10*3/uL Normal [facility] Comment on above: Performed By: #### R ENAL #### [facility] [address] [place] [address] Dr. Ember Teague XR CHEST 2 Von [...] ANGELINA BRISENO Date: 2022-10-24 16:22 Normal [facility] FERRITINon 09-18-2022 Ferritin [Mass/Vol] 612.0 ng/mL Critically high 8.0-252.0 [facility] Comment on above: Performed By: #### F ERR, FETIBC #### [facility] [address] [place] [address] Dr. Ember Teague HEMOGRAM AND PLATELon 2021 Hematocrit (Bld) [Volume fraction] 28.1 % Critically low 36.0-48.0 [facility] Comment on above: Performed By: #### C BC #### [facility] [address] [place] [address] Dr. Ember Teague Hemoglobin (Bld) [Mass/Vol] 9.7 g/dL Critically low 12.0-16.0 [facility] Comment on above: Performed By: #### C BC #### [facility] [address] [place] [address] Dr. Ember Teague MCH (RBC) [Entitic mass] 31.3 pg Normal 26.7-34.0 [facility] Comment on above: Performed By: #### C BC #### [facility] [address] [place] [address] Dr. Ember Teague MCHC (RBC) [Mass/Vol] 34.5 g/dL Normal 29.9-35.2 [facility] Comment on above: Performed By: #### C BC #### [facility] [address] [place] [address] Dr. Ember Teague MCV (RBC) [Entitic vol] 90.6 fL Normal 81.0-99.0 [facility] Comment on above: Performed By: #### C BC #### [facility] [address] [place] [address] Dr. Ember Teague PLT 183 103/ul Normal 150-450 [facility] Comment on above: Performed By: #### C BC #### [facility] [address] [place] [address] Dr. Ember Teague RBC 3.10 106/ul Critically low 4.20-5.40 [facility] Comment on above: Performed By: #### C BC #### [facility] [address] [place] [address] Dr. Ember Teague WBC 7.2 103/ul Normal 4.0-11.0 [facility] Comment on above: Performed By: #### C BC #### [facility] [address] [place] [address] Dr. Ember Teague IRON AND TIBCon 09-18-2022 % SATURATION 36.0 % Normal [facility] Comment on above: Performed By: #### F ERR, FETIBC #### [facility] [address] [place] [address] Dr. Ember Teague Iron [Mass/Vol] 77.0 ug/dL Normal 50.0-170.0 [facility] Comment on above: Performed By: #### F ERR, FETIBC #### [facility] [address] [place] [address] Dr. Ember Teague TIBC DIRECT 214.0 ug/dL Critically low 250.0-450.0 [facility] Comment on above: Performed By: #### F ERR, FETIBC #### [facility] [address] [place] [address] Dr. Ember Teague RENAL FUNCTION PANELon 09-18 Albumin [Mass/Vol] 3.7 g/dL Normal 3.4-5.0 [facility] Comment on above: Performed By: #### R ENAL #### [facility] [address] [place] [address] Dr. Ember Teague Calcium [Mass/Vol] 9.5 mg/dL Normal 8.5-10.1 [facility] Comment on above: Performed By: #### R ENAL #### [facility] [address] [place] [address] Dr. Ember Teague Chloride [Moles/Vol] 103 mmol/L Normal 98-107 [facility] Comment on above: Performed By: #### R ENAL #### [facility] [address] [place] [address] Dr. Ember Teague CO2 [Moles/Vol] 21.1 mmol/L Normal 21.0-32.0 [facility] Comment on above: Performed By: #### R ENAL #### [facility] [address] [place] [address] Dr. Ember Teague Creatinine [Mass/Vol] 1.85 mg/dL Critically high 0.55-1.02 [facility] Comment on above: Performed By: #### R ENAL #### [facility] [address] [place] [address] Dr. Ember Teague EGFR-AF GUYANESE 32 mL/min/1.73m2 Critically low >=60 [facility] Comment on above: Performed By: #### R ENAL #### [facility] [address] [place] [address] Dr. Ember Teague EGFR-NON AF GUYANESE 26 mL/min/1.73m2 Critically low >=60 [facility] Comment on above: Performed By: #### R ENAL #### [facility] [address] [place] [address] Dr. Ember Teague Glucose [Mass/Vol] 183 mg/dL Critically high 74-[address] [facility] Comment on above: Performed By: #### R ENAL #### [facility] [address] [place] [address] Dr. Ember Teague Phosphate [Mass/Vol] 3.7 mg/dL Normal 2.6-4.7 [facility] Comment on above: Performed By: #### R ENAL #### [facility] [address] [place] [address] Dr. Ember Teague Potassium [Moles/Vol] 4.9 mmol/L Normal 3.5-5.1 [facility] Comment on above: Performed By: #### R ENAL #### [facility] [address] [place] [address] Dr. Ember Teague Sodium [Moles/Vol] 138 mmol/L Normal 136-145 [facility] Comment on above: Performed By: #### R ENAL #### [facility] [address] [place] [address] Dr. Ember Teague Urea nitrogen [Mass/Vol] 40.0 mg/dL Critically high 7.0-18.0 [facility] Comment on above: Performed By: #### R ENAL #### [facility] [address] [place] [address] Dr. Ember Teague CULTURE URINEon 09-15-2022 CULTURE [...] Trimethoprim/Sulfamet hoxazole <=20 S F Normal [facility] Comment on above: Performed By: #### R ENAL #### [facility] [address] [place] [address] Dr. Ember Teague BNPon 09-11-2022 Natriuretic peptide B (Bld) [Mass/Vol] 408.0 pg/mL Normal <=1,800.0 [facility] Comment on above: Performed By: #### P THINT #### [facility] [address] [place] [address] Dr. Ember Teague CBC AUTO DIFFon 09-11-2022 BASO # 0.0 103/ul Normal 0.0-0.1 [facility] Comment on above: Performed By: #### C BC #### [facility] [address] [place] [address] Dr. Ember Teague Basophils/100 WBC (Bld) 0.3 % Normal 0.2-2.0 [facility] Comment on above: Performed By: #### C BC #### [facility] [address] [place] [address] Dr. Ember Teague EO # 0.1 103/ul Normal 0.0-0.7 [facility] Comment on above: Performed By: #### C BC #### [facility] [address] [place] [address] Dr. Ember Teague Eosinophils/100 WBC (Bld) 1.9 % Normal 0.9-7.0 [facility] Comment on above: Performed By: #### C BC #### [facility] [address] [place] [address] Dr. Ember Teague Erythrocyte distribution width (RBC) [Ratio] 15.2 % Critically high 11.0-15.0 [facility] Comment on above: Performed By: #### C BC #### [facility] [address] [place] [address] Dr. Ember Teague Hematocrit (Bld) [Volume fraction] 26.6 % Critically low 36.0-48.0 [facility] Comment on above: Performed By: #### C BC #### [facility] [address] [place] [address] Dr. Ember Teague Hemoglobin (Bld) [Mass/Vol] 9.0 g/dL Critically low 12.0-16.0 [facility] Comment on above: Performed By: #### C BC #### [facility] [address] [place] [address] Dr. Ember Teague IG # 0.02 10e3/ul Normal 0.00-0.03 [facility] Comment on above: Performed By: #### C BC #### [facility] [address] [place] [address] Dr. Ember Teague IG % 0.3 % Normal 0.0-0.5 [facility] Comment on above: Performed By: #### C BC #### [facility] [address] [place] [address] Dr. Ember Teague LYMPH # 1.9 103/ul Normal 1.2-3.8 [facility] Comment on above: Performed By: #### C BC #### [facility] [address] [place] [address] Dr. Ember Teague Lymphocytes/100 WBC (Bld) 32.4 % Normal 20.5-60.0 [facility] Comment on above: Performed By: #### C BC #### [facility] [address] [place] [address] Dr. Ember Teague MANUAL DIFF REQ NO Normal [facility] Comment on above: Performed By: #### C BC #### [facility] [address] [place] [address] Dr. Ember Teague MCH (RBC) [Entitic mass] 31.1 pg Normal 26.7-34.0 [facility] Comment on above: Performed By: #### C BC #### [facility] [address] [place] [address] Dr. Ember Teague MCHC (RBC) [Mass/Vol] 33.8 g/dL Normal 29.9-35.2 [facility] Comment on above: Performed By: #### C BC #### [facility] [address] [place] [address] Dr. Ember Teague MCV (RBC) [Entitic vol] 92.0 fL Normal 81.0-99.0 [facility] Comment on above: Performed By: #### C BC #### [facility] [address] [place] [address] Dr. Ember Teague MONO # 0.6 103/ul Normal 0.3-0.8 [facility] Comment on above: Performed By: #### C BC #### [facility] [address] [place] [address] Dr. Ember Teague Monocytes/100 WBC (Bld) 10.0 % Normal 1.7-12.0 [facility] Comment on above: Performed By: #### C BC #### [facility] [address] [place] [address] Dr. Ember Teague NEUT # 3.2 103/ul Normal 1.4-6.5 [facility] Comment on above: Performed By: #### C BC #### [facility] [address] [place] [address] Dr. Ember Teague Neutrophils/100 WBC (Bld) 55.1 % Normal 43.0-75.0 [facility] Comment on above: Performed By: #### C BC #### [facility] [address] [address] [address] Ember Teague Platelet mean volume (Bld) [Entitic vol] 9.4 fL Critically low 9.5-13.5 [facility] Comment on above: Performed By: #### C BC #### [facility] [address] [address] [address] Ember Teague PLT 196 103/ul Normal 150-450 [facility] Comment on above: Performed By: #### C BC #### [facility] [address] [address] [address] Ember Teague RBC 2.89 106/ul Critically low 4.20-5.40 [facility] Comment on above: Performed By: #### C BC #### [facility] [address] [place] [address] Dr. Ember Teague WBC 5.8 103/ul Normal 4.0-11.0 [facility] Comment on above: Performed By: #### C BC #### [facility] [address] [place] [address] Dr. Ember Teague PROF 14(COMP METB)on 022 Albumin [Mass/Vol] 3.7 g/dL Normal 3.4-5.0 [facility] Comment on above: Performed By: #### P THINT #### [facility] [address] [place] [address] Dr. Ember Teague Albumin/Globulin [Mass ratio] 1.0 {ratio} Normal [facility] Comment on above: Performed By: #### P THINT #### [facility] [address] [place] [address] Dr. Ember Teague ALP [Catalytic activity/Vol] 79 U/L Normal 46-116 [facility] Comment on above: Performed By: #### P THINT #### [facility] [address] [place] [address] Dr. Ember Teague ALT [Catalytic activity/Vol] 24 U/L Normal 14-59 [facility] Comment on above: Performed By: #### P THINT #### [facility] [address] [place] [address] Dr. Ember Teague Anion gap [Moles/Vol] 12.8 mmol/L Normal [facility] Comment on above: Performed By: #### P THINT #### [facility] [address] [address] [address] Ember Teague AST [Catalytic activity/Vol] 17 U/L Normal 15-37 [facility] Comment on above: Performed By: #### P THINT #### [facility] [address] [address] [address] Ember Teague Bilirubin [Mass/Vol] 0.5 mg/dL Normal 0.2-1.0 [facility] Comment on above: Performed By: #### P THINT #### [facility] [address] [address] [address] Ember Teague Calcium [Mass/Vol] 9.4 mg/dL Normal 8.5-10.1 [facility] Comment on above: Performed By: #### P THINT #### [facility] [address] [address] [address] Ember Teague Chloride [Moles/Vol] 101 mmol/L Normal 98-107 [facility] Comment on above: Performed By: #### P THINT #### [facility] [address] [address] [address] Ember Teague CO2 [Moles/Vol] 24.3 mmol/L Normal 21.0-32.0 [facility] Comment on above: Performed By: #### P THINT #### [facility] [address] [address] [address] Ember Teague Creatinine [Mass/Vol] 2.84 mg/dL Critically high 0.55-1.02 [facility] Comment on above: Performed By: #### P THINT #### [facility] [address] [address] [address] Ember Teague EGFR-AF GUYANESE 20 mL/min/1.73m2 Critically low >=60 [facility] Comment on above: Performed By: #### P THINT #### [facility] [address] [address] [address] Ember Teague EGFR-NON AF GUYANESE 16 mL/min/1.73m2 Critically low >=60 [facility] Comment on above: Performed By: #### P THINT #### [facility] [address] [place] [address] Dr. Ember Teague Globulin (S) [Mass/Vol] 3.7 g/dL Normal [facility] Comment on above: Performed By: #### P THINT #### [facility] [address] [address] [address] Ember Teague Glucose [Mass/Vol] 174 mg/dL Critically high 74-106 [facility] Comment on above: Performed By: #### P THINT #### [facility] [address] [place] [address] Dr. Ember Teague Potassium [Moles/Vol] 5.1 mmol/L Normal 3.5-5.1 [facility] Comment on above: Performed By: #### P THINT #### [facility] [address] [place] [address] Dr. Ember Teague Protein [Mass/Vol] 7.4 g/dL Normal 6.4-8.2 [facility] Comment on above: Performed By: #### P THINT #### [facility] [address] [place] [address] Dr. Ember Teague Sodium [Moles/Vol] 133 mmol/L Critically low 136-145 [facility] Comment on above: Performed By: #### P THINT #### [facility] [address] [place] [address] Dr. Ember Teague Urea nitrogen [Mass/Vol] 68.0 mg/dL Critically high 7.0-18.0 [facility] Comment on above: Performed By: #### P THINT #### [facility] [address] [place] [address] Dr. Ember Teague Urea nitrogen/Creatinine [Mass ratio] 23.9 mg/mg Normal [facility] Comment on above: Performed By: #### P THINT #### [facility] [address] [place] [address] Dr. Ember Teague TROPONIN, HIGH SENSITIVITYon 09-11-2022 HSTROP 9.1 pg/mL Normal 4.0-51.3 [facility] Comment on above: Result Comment: CUT- OFF POINTS HAVE BEEN ESTABLISHED BASED ON THE FOURTH UNIVERSAL DEFINITIONS OF MYOCARDIAL INFARCTION. THE UPPER REFERENCE LIMIT (URL) OF TROPONIN, DEFINED THE 99TH PERCENTILE OF cTnI DISTRIBUTION IN A REFERENCE POPULATION, HAS BEEN CONFIRMED THE DECISION THRESHOLD FOR ME DIAGNOSIS. Performed By: #### P THINT #### [facility] [address] [place] [address] Dr. Ember Teague UA RANDOM W/MICROSCOPICon BACTERIA NONE SEEN Normal NONE SEEN [facility] Comment on above: Performed By: #### C VDTBH #### [facility] [address] [place] [address] Dr. Ember Teague Bilirubin Ql (U) Negative Normal NEGATIVE [facility] Comment on above: Performed By: #### C VDTBH #### [facility] [address] [place] [address] Dr. Ember Teague CAST NONE SEEN Normal NONE SEEN [facility] Comment on above: Performed By: #### C VDTBH #### [facility] [address] [place] [address] Dr. Ember Teague Clarity (U) CLEAR Normal CLEAR [facility] Comment on above: Performed By: #### C VDTBH #### [facility] [address] [place] [address] Dr. Ember Teague Color (U) LT. YELLOW Normal YELLOW [facility] Comment on above: Performed By: #### C VDTBH #### [facility] [address] [place] [address] Dr. Ember Teague Crystals LM Nom (Urine sed) NONE SEEN Normal NONE SEEN [facility] Comment on above: Performed By: #### C VDTBH #### [facility] [address] [place] [address] Dr. Ember Teague Epithelial cells LM Ql (Urine sed) FEW Abnormal NONE SEEN /RARE [facility] Comment on above: Performed By: #### C VDTBH #### [facility] [address] [place] [address] Dr. Ember Teague Glucose Ql (U) Negative Normal NEGATIVE [facility] Comment on above: Performed By: #### C VDTBH #### [facility] [address] [place] [address] Dr. Ember Teague Hemoglobin Ql (U) Negative Normal NEGATIVE [facility] Comment on above: Performed By: #### C VDTBH #### [facility] [address] [address] [address] Ember Teague Ketones Ql (U) Negative Normal NEGATIVE [facility] Comment on above: Performed By: #### C VDTBH #### [facility] [address] [place] [address] Dr. Ember Teague LEUKOCYTES Negative Normal NEGATIVE [facility] Comment on above: Performed By: #### C VDTBH #### [facility] [address] [place] [address] Dr. Ember Teague MUCOUS NONE SEEN Normal NONE SEEN [facility] Comment on above: Performed By: #### C VDTBH #### [facility] [address] [place] [address] Dr. Ember Teague Nitrite Ql (U) Negative Normal NEGATIVE [facility] Comment on above: Performed By: #### C VDTBH #### [facility] [address] [place] [address] Dr. Ember Teague pH (U) 5.5 [pH] Normal 5-9 [facility] Comment on above: Performed By: #### C VDTBH #### [facility] [address] [place] [address] Dr. Ember Teague RBC NONE SEEN Abnormal 0-2 [facility] Comment on above: Performed By: #### C VDTBH #### [facility] [address] [place] [address] Dr. Ember Teague SPEC GRAVITY 1.010 Normal 1.005-<=1.025 [facility] Comment on above: Performed By: #### C VDTBH #### [facility] [address] [place] [address] Dr. Ember Teague UA PROTEIN Negative Normal NEGATIVE/ TRACE [facility] Comment on above: Performed By: #### C VDTBH #### [facility] [address] [place] [address] Dr. Ember Teague Urobilinogen Qn (U) 0.2 {Esau'U}/dL Normal 0.2 - 1. 0 [facility] Comment on above: Performed By: #### C VDTBH #### [facility] [address] [place] [address] Dr. Ember Teague WBC NONE SEEN Normal NONE SEEN [facility] Comment on above: Performed By: #### C VDTBH #### [facility] [address] [place] [address] Dr. Ember Teague CBC AUTO DIFFon 08-13-2022 BASO # 0.0 103/ul Normal 0.0-0.1 [facility] Comment on above: Performed By: #### C BC #### [facility] [address] [place] [address] Dr. Ember Teague Basophils/100 WBC (Bld) 0.3 % Normal 0.2-2.0 [facility] Comment on above: Performed By: #### C BC #### [facility] [address] [place] [address] Dr. Ember Teague EO # 0.2 103/ul Normal 0.0-0.7 [facility] Comment on above: Performed By: #### C BC #### [facility] [address] [place] [address] Dr. Ember Teague Eosinophils/100 WBC (Bld) 3.7 % Normal 0.9-7.0 [facility] Comment on above: Performed By: #### C BC #### [facility] [address] [place] [address] Dr. Ember Teague Erythrocyte distribution width (RBC) [Ratio] 15.0 % Normal 11.0-15.0 [facility] Comment on above: Performed By: #### C BC #### [facility] [address] [place] [address] Dr. Ember Teague Hematocrit (Bld) [Volume fraction] 27.9 % Critically low 36.0-48.0 [facility] Comment on above: Performed By: #### C BC #### [facility] [address] [place] [address] Dr. Ember Teague Hemoglobin (Bld) [Mass/Vol] 9.7 g/dL Critically low 12.0-16.0 [facility] Comment on above: Performed By: #### C BC #### [facility] [address] [place] [address] Dr. Ember Teague IG # 0.01 10e3/ul Normal 0.00-0.03 [facility] Comment on above: Performed By: #### C BC #### [facility] [address] [place] [address] Dr. Ember Teague IG % 0.2 % Normal 0.0-0.5 [facility] Comment on above: Performed By: #### C BC #### [facility] [address] [place] [address] Dr. Ember Teague LYMPH # 1.9 103/ul Normal 1.2-3.8 [facility] Comment on above: Performed By: #### C BC #### [facility] [address] [place] [address] Dr. Ember Teague Lymphocytes/100 WBC (Bld) 32.2 % Normal 20.5-60.0 [facility] Comment on above: Performed By: #### C BC #### [facility] [address] [place] [address] Dr. Ember Teague MANUAL DIFF REQ NO Normal [facility] Comment on above: Performed By: #### C BC #### [facility] [address] [place] [address] Dr. Ember Teague MCH (RBC) [Entitic mass] 31.4 pg Normal 26.7-34.0 [facility] Comment on above: Performed By: #### C BC #### [facility] [address] [place] [address] Dr. Ember Teague MCHC (RBC) [Mass/Vol] 34.8 g/dL Normal 29.9-35.2 [facility] Comment on above: Performed By: #### C BC #### [facility] [address] [place] [address] Dr. Ember Teague MCV (RBC) [Entitic vol] 90.3 fL Normal 81.0-99.0 [facility] Comment on above: Performed By: #### C BC #### [facility] [address] [place] [address] Dr. Ember Teague MONO # 0.6 103/ul Normal 0.3-0.8 [facility] Comment on above: Performed By: #### C BC #### [facility] [address] [place] [address] Dr. Ember Teague Monocytes/100 WBC (Bld) 9.8 % Normal 1.7-12.0 [facility] Comment on above: Performed By: #### C BC #### [facility] [address] [place] [address] Dr. Ember Teague NEUT # 3.2 103/ul Normal 1.4-6.5 [facility] Comment on above: Performed By: #### C BC #### [facility] [address] [place] [address] Dr. Ember Teague Neutrophils/100 WBC (Bld) 53.8 % Normal 43.0-75.0 [facility] Comment on above: Performed By: #### C BC #### [facility] [address] [place] [address] Dr. Ember Teague Platelet mean volume (Bld) [Entitic vol] 10.0 fL Normal 9.5-13.5 [facility] Comment on above: Performed By: #### C BC #### [facility] [address] [place] [address] Dr. Ember Teague PLT 194 103/ul Normal 150-450 [facility] Comment on above: Performed By: #### C BC #### [facility] [address] [place] [address] Dr. Ember Teague RBC 3.09 106/ul Critically low 4.20-5.40 [facility] Comment on above: Performed By: #### C BC #### [facility] [address] [place] [address] Dr. Ember Teague WBC 6.0 103/ul Normal 4.0-11.0 [facility] Comment on above: Performed By: #### C BC #### [facility] [address] [place] [address] Dr. Ember Teague PTH INTACTon 06-26-2022 PTH, Intact 39 pg/mL Normal 15-65 [facility] Comment on above: Performed By: #### P THINT #### [facility] [address] [place] [address] Dr. Ember Teague CBC AUTO DIFFon 06-25-2022 BASO # 0.1 103/ul Normal 0.0-0.1 [facility] Comment on above: Performed By: #### C VDTBH #### [facility] [address] [place] [address] Dr. Ember Teague Basophils/100 WBC (Bld) 0.6 % Normal 0.2-2.0 [facility] Comment on above: Performed By: #### C VDTBH #### [facility] [address] [place] [address] Dr. Ember Teague EO # 0.2 103/ul Normal 0.0-0.7 [facility] Comment on above: Performed By: #### C VDTBH #### [facility] [address] [place] [address] Dr. Ember Teague Eosinophils/100 WBC (Bld) 3.0 % Normal 0.9-7.0 [facility] Comment on above: Performed By: #### C VDTBH #### [facility] [address] [place] [address] Dr. Ember Teague Erythrocyte distribution width (RBC) [Ratio] 14.2 % Normal 11.0-15.0 [facility] Comment on above: Performed By: #### C VDTBH #### [facility] [address] [place] [address] Dr. Ember Teague Hematocrit (Bld) [Volume fraction] 30.9 % Critically low 36.0-48.0 [facility] Comment on above: Performed By: #### C VDTBH #### [facility] [address] [place] [address] Dr. Ember Teague Hemoglobin (Bld) [Mass/Vol] 10.6 g/dL Critically low 12.0-16.0 [facility] Comment on above: Performed By: #### C VDTBH #### [facility] [address] [place] [address] Dr. Ember Teague IG # 0.04 10e3/ul Critically high 0.00-0.03 [facility] Comment on above: Performed By: #### C VDTBH #### [facility] [address] [place] [address] Dr. Ember Teague IG % 0.5 % Normal 0.0-0.5 [facility] Comment on above: Performed By: #### C VDTBH #### [facility] [address] [place] [address] Dr. Ember Teague LYMPH # 2.2 103/ul Normal 1.2-3.8 [facility] Comment on above: Performed By: #### C VDTBH #### [facility] [address] [place] [address] Dr. Ember Teague Lymphocytes/100 WBC (Bld) 27.0 % Normal 20.5-60.0 [facility] Comment on above: Performed By: #### C VDTBH #### [facility] [address] [place] [address] Dr. mEber Teague MANUAL DIFF REQ NO Normal [facility] Comment on above: Performed By: #### C VDTBH #### [facility] [address] [place] [address] Dr. Ember Teague MCH (RBC) [Entitic mass] 31.2 pg Normal 26.7-34.0 [facility] Comment on above: Performed By: #### C VDTBH #### [facility] [address] [place] [address] Dr. Ember Teague MCHC (RBC) [Mass/Vol] 34.3 g/dL Normal 29.9-35.2 [facility] Comment on above: Performed By: #### C VDTBH #### [facility] [address] [place] [address] Dr. Ember Teague MCV (RBC) [Entitic vol] 90.9 fL Normal 81.0-99.0 [facility] Comment on above: Performed By: #### C VDTBH #### [facility] [address] [place] [address] Dr. Ember Teague MONO # 0.7 103/ul Normal 0.3-0.8 [facility] Comment on above: Performed By: #### C VDTBH #### [facility] [address] [place] [address] Dr. Ember Teague Monocytes/100 WBC (Bld) 9.2 % Normal 1.7-12.0 [facility] Comment on above: Performed By: #### C VDTBH #### [facility] [address] [place] [address] Dr. Ember Teague NEUT # 4.8 103/ul Normal 1.4-6.5 [facility] Comment on above: Performed By: #### C VDTBH #### [facility] [address] [place] [address] Dr. Ember Teague Neutrophils/100 WBC (Bld) 59.7 % Normal 43.0-75.0 [facility] Comment on above: Performed By: #### C VDTBH #### [facility] [address] [place] [address] Dr. Ember Teague Platelet mean volume (Bld) [Entitic vol] 9.3 fL Critically low 9.5-13.5 [facility] Comment on above: Performed By: #### C VDTBH #### [facility] [address] [place] [address] Dr. Ember Teague PLT 227 103/ul Normal 150-450 [facility] Comment on above: Performed By: #### C VDTBH #### [facility] [address] [address] [address] Ember Teague RBC 3.40 106/ul Critically low 4.20-5.40 [facility] Comment on above: Performed By: #### C VDTBH #### [facility] [address] [address] [address] Ember Teague WBC 8.0 103/ul Normal 4.0-11.0 [facility] Comment on above: Performed By: #### C VDTB #### [facility] [address] [address] [address] Ember Teague MRI LSPINE WO CONon [...] mild-moderate compression fracture. Electronically authenticated by: YANET Spencer: 2022-06-25 08:45 Normal [facility] RENAL FUNCTION PANELon 06-25 Albumin [Mass/Vol] 3.9 g/dL Normal 3.4-5.0 [facility] Comment on above: Performed By: #### P THINT #### [facility] [address] [address] [address] Ember Teague Calcium [Mass/Vol] 9.5 mg/dL Normal 8.5-10.1 [facility] Comment on above: Performed By: #### P THINT #### [facility] [address] [address] [address] Ember Teague Chloride [Moles/Vol] 102 mmol/L Normal 98-107 [facility] Comment on above: Performed By: #### P THINT #### [facility] [address] [address] [address] Ember Teague CO2 [Moles/Vol] 23.8 mmol/L Normal 21.0-32.0 [facility] Comment on above: Performed By: #### P THINT #### [facility] [address] [address] [address] Ember Teague Creatinine [Mass/Vol] 1.75 mg/dL Critically high 0.55-1.02 [facility] Comment on above: Performed By: #### P THINT #### [facility] [address] [address] [address] Ember Teague EGFR-AF GUYANESE 34 mL/min/1.73m2 Critically low >=60 [facility] Comment on above: Performed By: #### P THINT #### [facility] [address] [address] [address] Ember Teague EGFR-NON AF GUYANESE 28 mL/min/1.73m2 Critically low >=60 [facility] Comment on above: Performed By: #### P THINT #### [facility] [address] [address] [address] Ember Teague Glucose [Mass/Vol] 199 mg/dL Critically high 74-[address] [facility] Comment on above: Performed By: #### P THINT #### [facility] [address] [address] [address] Ember Teague Phosphate [Mass/Vol] 4.3 mg/dL Normal 2.6-4.7 [facility] Comment on above: Performed By: #### P THINT #### [facility] [address] [place] [address] Dr. Ember Teague Potassium [Moles/Vol] 4.9 mmol/L Normal 3.5-5.1 [facility] Comment on above: Performed By: #### P THINT #### [facility] [address] [place] [address] Dr. Ember Teague Sodium [Moles/Vol] 135 mmol/L Critically low 136-145 [facility] Comment on above: Performed By: #### P THINT #### [facility] [address] [place] [address] Dr. Ember Teague Urea nitrogen [Mass/Vol] 34.0 mg/dL Critically high 7.0-18.0 [facility] Comment on above: Performed By: #### P THINT #### [facility] [address] [place] [address] Dr. Ember Teague VITAMIN D 25 OHon 06-25-2022 VIT D 25-OH 40.6 ng/mL Normal [facility] Comment on above: Performed By: #### P THINT #### [facility] [address] [place] [address] Dr. Ember Teague VIT D RANGES SEE BELOW Normal [facility] Comment on above: Result Comment: <20 ng/mL Vit D deficient 20 - <30 ng/mL Vit D insufficient 30 - 100 ng/mL Vit D sufficient >100 ng/mL Potential Toxicity Performed By: #### P THINT #### [facility] [address] [place] [address] Dr. Ember Teague [facility]on 06-07 SARS-CoV-2 (COVID-19) RNA ALEXX+probe Ql (Unsp spec) Not detected Normal NOT DETECTED [facility] Comment on above: Result Comment: This test is not yet approved or cleared by the [place] FDA. When there are no FDA-approved or cleared tests available, and other criteria are met, FDA can make tests available under an emergency access mechanism called an Emergency Use Authorization (EUA). The EUA for this test is supported by the Hem[employer]ching [employer] Operator of Health and Human Service's (HHS's) [...] consistent with SARS-CoV-2. Performed By: #### [facility] #### [facility] [address] [place] [address] LSPINE WO CONon [...] YANET HUERTA Date: 2022-06-01 18:02 Normal [facility] XR LSPINE MIN 4 VIEWSon 05-07 [...] by: YANET HUERTA Date: 2022-05-21 15:25 Normal [facility] PTH INTACTon 05-03-2022 PTH, Intact 60 pg/mL Normal 15-65 [facility] Comment on above: Performed By: #### C VDTB #### [facility] [address] [place] [address] Dr. Ember Teague VIT D 25-OH LABCORPon 2021 Vitamin D, 25-Hydroxy 26.1 ng/mL Critically low 30.0-100.0 [facility] Comment on above: Result Comment: Sara min D deficiency has been defined by the [place] of [employer] and an Endocrine Society practice guideline as a level of serum 25-OH vitamin D less than 20 ng/mL (1,2). The Endocrine Society went on to further define vitamin D insufficiency as a level between 21 and 29 ng/mL (2). 1. IOM ([place] of [employer]). 2010. Dietary reference intakes for calcium and D. [place]: The National Academies Press. 2. Sherice MF, Wendy WILSON, Huan ZHONG, et al. Evaluation, treatment, and prevention of vitamin D deficiency: an Endocrine Society clinical practice guideline. JCEM. 2010; 96(7):1911-30. Performed By: #### R ENAL #### [facility] [address] [place] [address] Dr. Ember Teague FERRITINon 05-02-2022 Ferritin [Mass/Vol] 590.0 ng/mL Critically high 8.0-252.0 [facility] Comment on above: Performed By: #### R ENAL #### [facility] [address] [place] [address] Dr. Ember Teague HEMOGRAM AND PLATELon 2021 Hematocrit (Bld) [Volume fraction] 28.4 % Critically low 36.0-48.0 [facility] Comment on above: Performed By: #### C VDTBH #### [facility] [address] [place] [address] Dr. Ember Teague Hemoglobin (Bld) [Mass/Vol] 9.6 g/dL Critically low 12.0-16.0 [facility] Comment on above: Performed By: #### C VDTBH #### [facility] [address] [place] [address] Dr. Ember Teague MCH (RBC) [Entitic mass] 31.0 pg Normal 26.7-34.0 [facility] Comment on above: Performed By: #### C VDTBH #### [facility] [address] [place] [address] Dr. Ember Teague MCHC (RBC) [Mass/Vol] 33.8 g/dL Normal 29.9-35.2 [facility] Comment on above: Performed By: #### C VDTBH #### [facility] [address] [place] [address] Dr. Ember Teague MCV (RBC) [Entitic vol] 91.6 fL Normal 81.0-99.0 [facility] Comment on above: Performed By: #### C VDTBH #### [facility] [address] [place] [address] Dr. Ember Teague PLT 189 103/ul Normal 150-450 [facility] Comment on above: Performed By: #### C VDTBH #### [facility] [address] [address] [address] Ember Teague RBC 3.10 106/ul Critically low 4.20-5.40 [facility] Comment on above: Performed By: #### C VDTBH #### [facility] [address] [address] [address] Ember Teague WBC 6.2 103/ul Normal 4.0-11.0 [facility] Comment on above: Performed By: #### C VDTBH #### [facility] [address] [address] [address] Ember Teague IRON AND TIBCon 05-02-2022 % SATURATION 34.3 % Normal [facility] Comment on above: Performed By: #### R ENAL #### [facility] [address] [place] [address] Dr. Ember Teague Iron [Mass/Vol] 69.0 ug/dL Normal 50.0-170.0 [facility] Comment on above: Performed By: #### R ENAL #### [facility] [address] [address] [address] Ember Teague TIBC DIRECT 201.0 ug/dL Critically low 250.0-450.0 [facility] Comment on above: Performed By: #### R ENAL #### [facility] [address] [address] [address] Ember Teague MAGNESIUMon 05-02-2022 Magnesium [Mass/Vol] 1.7 mg/dL Critically low 1.8-2.4 [facility] Comment on above: Performed By: #### C VDTBH #### [facility] [address] [address] [address] Ember Teague RENAL FUNCTION PANELon 05-02 Albumin [Mass/Vol] 3.6 g/dL Normal 3.4-5.0 [facility] Comment on above: Performed By: #### C VDTBH #### [facility] [address] [place] [address] Dr. Ember Teague Calcium [Mass/Vol] 9.2 mg/dL Normal 8.5-10.1 [facility] Comment on above: Performed By: #### C VDTBH #### [facility] [address] [address] [address] Ember Teague Chloride [Moles/Vol] 107 mmol/L Normal 98-107 [facility] Comment on above: Performed By: #### C VDTBH #### [facility] [address] [address] [address] Ember Teague CO2 [Moles/Vol] 21.2 mmol/L Normal 21.0-32.0 [facility] Comment on above: Performed By: #### C VDTBH #### [facility] [address] [place] [address] Dr. Ember Teague Creatinine [Mass/Vol] 1.75 mg/dL Critically high 0.55-1.02 [facility] Comment on above: Performed By: #### C VDTBH #### [facility] [address] [place] [address] Dr. Ember Teague EGFR-AF GUYANESE 34 mL/min/1.73m2 Critically low >=60 [facility] Comment on above: Performed By: #### C VDTBH #### [facility] [address] [place] [address] Dr. Ember Teague EGFR-NON AF GUYANESE 28 mL/min/1.73m2 Critically low >=60 [facility] Comment on above: Performed By: #### C VDTBH #### [facility] [address] [place] [address] Dr. Ember Teague Glucose [Mass/Vol] 193 mg/dL Critically high 74-[address] [facility] Comment on above: Performed By: #### C VDTBH #### [facility] [address] [address] [address] Ember Teague Phosphate [Mass/Vol] 4.2 mg/dL Normal 2.6-4.7 [facility] Comment on above: Performed By: #### C VDTBH #### [facility] [address] [place] [address] Dr. Ember Teague Potassium [Moles/Vol] 5.1 mmol/L Normal 3.5-5.1 [facility] Comment on above: Performed By: #### C VDTBH #### [facility] [address] [place] [address] Dr. Ember Teague Sodium [Moles/Vol] 139 mmol/L Normal 136-145 [facility] Comment on above: Performed By: #### C VDTBH #### [facility] [address] [place] [address] Dr. Ember Teague Urea nitrogen [Mass/Vol] 34.0 mg/dL Critically high 7.0-18.0 [facility] Comment on above: Performed By: #### C VDTBH #### [facility] [address] [place] [address] Dr. Ember Teague UA RANDOM W/MICROSCOPICon BACTERIA SMALL Abnormal NONE SEEN [facility] Comment on above: Performed By: #### C VDTBH #### [facility] [address] [place] [address] Dr. Ember Teague Bilirubin Ql (U) Negative Normal NEGATIVE [facility] Comment on above: Performed By: #### C VDTBH #### [facility] [address] [place] [address] Dr. Ember Teague CAST NONE SEEN Normal NONE SEEN [facility] Comment on above: Performed By: #### C VDTBH #### [facility] [address] [place] [address] Dr. Ember Teague Clarity (U) CLEAR Normal CLEAR [facility] Comment on above: Performed By: #### C VDTBH #### [facility] [address] [place] [address] Dr. Ember Teague Color (U) LT. YELLOW Normal YELLOW [facility] Comment on above: Performed By: #### C VDTBH #### [facility] [address] [place] [address] Dr. Ember Teague Crystals LM Nom (Urine sed) NONE SEEN Normal NONE SEEN [facility] Comment on above: Performed By: #### C VDTBH #### [facility] [address] [address] [address] Ember Teague Epithelial cells LM Ql (Urine sed) MODERATE Abnormal NONE SEEN /RARE [facility] Comment on above: Performed By: #### C VDTBH #### [facility] [address] [place] [address] Dr. Ember Teague Glucose Ql (U) Negative Normal NEGATIVE [facility] Comment on above: Performed By: #### C VDTBH #### [facility] [address] [address] [address] Ember Teague Hemoglobin Ql (U) Negative Normal NEGATIVE [facility] Comment on above: Performed By: #### C VDTBH #### [facility] [address] [place] [address] Dr. Ember Teague Ketones Ql (U) Negative Normal NEGATIVE [facility] Comment on above: Performed By: #### C VDTBH #### [facility] [address] [place] [address] Dr. Ember Teague LEUKOCYTES TRACE Abnormal NEGATIVE [facility] Comment on above: Performed By: #### C VDTBH #### [facility] [address] [place] [address] Dr. Ember Teague MUCOUS NONE SEEN Normal NONE SEEN [facility] Comment on above: Performed By: #### C VDTBH #### [facility] [address] [place] [address] Dr. Ember Teague Nitrite Ql (U) Negative Normal NEGATIVE [facility] Comment on above: Performed By: #### C VDTBH #### [facility] [address] [place] [address] Dr. Ember Teague pH (U) 5.0 [pH] Normal 5-9 [facility] Comment on above: Performed By: #### C VDTBH #### [facility] [address] [place] [address] Dr. Ember Teague RBC NONE SEEN Abnormal 0-2 [facility] Comment on above: Performed By: #### C VDTBH #### [facility] [address] [place] [address] Dr. Ember Teague SPEC GRAVITY 1.015 Normal 1.005-<=1.025 [facility] Comment on above: Performed By: #### C VDTBH #### [facility] [address] [place] [address] Dr. Ember Teague UA PROTEIN TRACE Normal NEGATIVE/ TRACE [facility] Comment on above: Performed By: #### C VDTBH #### [facility] [address] [place] [address] Dr. Ember Teague Urobilinogen Qn (U) 0.2 {Esau'U}/dL Normal 0.2 - 1. 0 [facility] Comment on above: Performed By: #### C VDTBH #### [facility] [address] [place] [address] Dr. Ember Teague WBC 0-2 Abnormal NONE SEEN [facility] Comment on above: Performed By: #### C VDTBH #### [facility] [address] [place] [address] Dr. Ember Teague URIC ACID SERUMon 05-02-2022 Urate [Mass/Vol] 4.4 mg/dL Normal 2.6-6.0 [facility] Comment on above: Performed By: #### C BC #### [facility] [address] [place] [address] Dr. Ember Teague URINE T PROTEIN CREAT RATIOo n 05-02-2022 Protein (U) [Mass/Vol] 33.7 mg/dL Critically high <=12.0 [facility] Comment on above: Performed By: #### C VDTBH #### [facility] [address] [place] [address] Dr. Ember Teague UR PROT CREAT RAT 0.69 Normal [facility] Comment on above: Performed By: #### C VDTBH #### [facility] [address] [place] [address] Dr. Ember Teague URINE CREAT 48.93 mg/dL Normal 20.00-300.00 [facility] Comment on above: Performed By: #### C VDTBH #### [facility] [address] [address] [address] Ember Teague Vital Signs Date Time Vital Sign Value Performing Clinician Facility 11-18-2023 10:00-0500 Body height 168.91 cm Ron Doreen Other [facility] Other 11-18-2023 10:00-0500 Body mass index (BMI) [Ratio] 29.85 kg/m2 Ron Doreen Other [facility] 11-18-2023 10:00-0500 Body temperature 97.3 [degF] Ron Doreen Other [facility] Other 11-18-2023 10:00-0500 Body weight 85.19 kg Ron Doreen Other [facility] Other 11-18-2023 10:00-0500 Diastolic blood pressure 79 mm[Hg] Ron Doreen Other [facility] Other 11-18-2023 10:00-0500 Respiratory rate 18 /min Ron Doreen Other [facility] Other 11-18-2023 10:00-0500 SaO2% (BldA) [Mass fraction] 98 % Ron Doreen Other [facility] Other 11-18-2023 10:00-0500 Systolic blood pressure 149 mm[Hg] Ron Doreen Other [facility] Other 11-04-2023 11:00-0500 Body height 168.91 cm Ron Doreen Other [facility] Other 11-04-2023 11:00-0500 Body mass index (BMI) [Ratio] 30.17 kg/m2 Ron Doreen Other [facility] Other 11-04-2023 11:00-0500 Body temperature 97.6 [degF] Ron Doreen Other [facility] Other 11-04-2023 11:00-0500 Body weight 86.09 kg Ron Doreen Other [facility] Other 11-04-2023 11:00-0500 Diastolic blood pressure 76 mm[Hg] Ron Doreen Other [facility] Other 11-04-2023 11:00-0500 Respiratory rate 18 /min Ron Doreen Other [facility] Other 11-04-2023 11:00-0500 SaO2% (BldA) [Mass fraction] 98 % Ron Doreen Other [facility] Other 11-04-2023 11:00-0500 Systolic blood pressure 153 mm[Hg] Ron Doreen Other [facility] Other 10-15-2023 13:00-0500 Body height 168.91 cm Ron Doreen Other [facility] Other 10-15-2023 13:00-0500 Body mass index (BMI) [Ratio] 29.82 kg/m2 Ron Doreen Other [facility] Other 10-15-2023 13:00-0500 Body temperature 97.5 [degF] Ron Doreen Other [facility] Other 10-15-2023 13:00-0500 Body weight 85.1 kg Ron Doreen Other [facility] Other 10-15-2023 13:00-0500 Diastolic blood pressure 68 mm[Hg] Ron Doreen Other [facility] Other 10-15-2023 13:00-0500 Respiratory rate 18 /min Ron Doreen Other [facility] Other 10-15-2023 13:00-0500 SaO2% (BldA) [Mass fraction] 98 % Ron Doreen Other [facility] Other 10-15-2023 13:00-0500 Systolic blood pressure 113 mm[Hg] Ron Doreen Other [facility] Other 08-27-2023 09:40-0500 Body height 168.91 cm Mary Anne [employer] [facility] 08-27-2023 09:40-0500 Body mass index (BMI) [Ratio] 30.2 kg/m2 Mary Anne [employer] [facility] 08-27-2023 09:40-0500 Body temperature 96.7 [degF] Óscarduc NP [employer] Other [facility] 08-27-2023 09:40-0500 Body weight 86.18 kg Óscarduc NP [employer] Other [facility] Other 08-27-2023 09:40-0500 Diastolic blood pressure 72 mm[Hg] Mary Anne Ackerman Other [facility] Other 08-27-2023 09:40-0500 Respiratory rate 18 /min Mary Anne Ackerman Other [facility] 08-27-2023 09:40-0500 SaO2% (BldA) [Mass fraction] 98 % Mary Anne Ackerman Other [facility] 08-27-2023 09:40-0500 Systolic blood pressure 153 mm[Hg] Mary Anne Ackerman Other [facility] Other 08-15-2023 10:20-0500 Body height 168.91 cm Ron Doreen Other [facility] Other 08-15-2023 10:20-0500 Body mass index (BMI) [Ratio] 30.2 kg/m2 Ron Doreen Other [facility] 08-15-2023 10:20-0500 Body temperature 97.1 [degF] Ron Doreen Other [facility] Other 08-15-2023 10:20-0500 Body weight 86.18 kg Ron Doreen Other [facility] Other 08-15-2023 10:20-0500 Diastolic blood pressure 79 mm[Hg] Ron Doreen Other [facility] Other 08-15-2023 10:20-0500 Respiratory rate 18 /min Ron Doreen Other [facility] Other 08-15-2023 10:20-0500 SaO2% (BldA) [Mass fraction] 98 % Ron Doreen Other [facility] Other 08-15-2023 10:20-0500 Systolic blood pressure 164 mm[Hg] Rno Doreen Other [facility] Other 08-13-2023 15:40-0500 Body height 168.91 cm Ron Doreen Other [facility] Other 08-13-2023 15:40-0500 Body mass index (BMI) [Ratio] 30.24 kg/m2 Ron Doreen Other [facility] Other 08-13-2023 15:40-0500 Body temperature 97.2 [degF] Ron Doreen Other [facility] Other 08-13-2023 15:40-0500 Body weight 86.27 kg Ron Doreen Other [facility] Other 08-13-2023 15:40-0500 Diastolic blood pressure 79 mm[Hg] Ron Doreen Other [facility] Other 08-13-2023 15:40-0500 Respiratory rate 18 /min Ron Doreen Other [facility] Other 08-13-2023 15:40-0500 SaO2% (BldA) [Mass fraction] 98 % Orn Doreen Other [facility] Other 08-13-2023 15:40-0500 Systolic blood pressure 186 mm[Hg] Ron Doreen Other [facility] Other 08-01-2023 13:00-0400 Body height 168.91 cm Ron Doreen Other [facility] Other 08-01-2023 13:00-0400 Body mass index (BMI) [Ratio] 30.55 kg/m2 Ron Doreen Other [facility] Other 08-01-2023 13:00-0400 Body temperature 97.8 [degF] Ron Doreen Other [facility] Other 08-01-2023 13:00-0400 Body weight 87.18 kg Ron Doreen Other [facility] Other 08-01-2023 13:00-0400 Diastolic blood pressure 72 mm[Hg] Ron Doreen Other [facility] Other 08-01-2023 13:00-0400 Respiratory rate 18 /min Ron Doreen Other [facility] Other 08-01-2023 13:00-0400 SaO2% (BldA) [Mass fraction] 98 % Ron Doreen Other [facility] Other 08-01-2023 13:00-0400 Systolic blood pressure 160 mm[Hg] Ron Doreen Other [facility] Other 06-24-2023 11:40-0400 Body height 168.91 cm Ron Doreen Other [facility] Other 06-24-2023 11:40-0400 Body mass index (BMI) [Ratio] 29.89 kg/m2 Ron Doreen Other [facility] Other 06-24-2023 11:40-0400 Body temperature 97.3 [degF] Ron Doreen Other [facility] Other 06-24-2023 11:40-0400 Body weight 85.28 kg Ron Doreen Other [facility] Other 06-24-2023 11:40-0400 Diastolic blood pressure 75 mm[Hg] Ron Doreen Other [facility] Other 06-24-2023 11:40-0400 Respiratory rate 18 /min Ron Doreen Other [facility] Other 06-24-2023 11:40-0400 SaO2% (BldA) [Mass fraction] 99 % Ron Doreen Other [facility] Other 06-24-2023 11:40-0400 Systolic blood pressure 129 mm[Hg] Ron Doreen Other [facility] Other 06-06-2023 15:20-0400 Body height 168.91 cm Ron Doreen Other [facility] Other 06-06-2023 15:20-0400 Body mass index (BMI) [Ratio] 29.92 kg/m2 Ron Doreen Other [facility] Other 06-06-2023 15:20-0400 Body temperature 96.5 [degF] Ron Doreen Other [facility] Other 06-06-2023 15:20-0400 Body weight 85.37 kg Ron Doreen Other [facility] Other 06-06-2023 15:20-0400 Diastolic blood pressure 49 mm[Hg] Ron Doreen Other [facility] Other 06-06-2023 15:20-0400 Respiratory rate 18 /min Ron Doreen Other [facility] Other 06-06-2023 15:20-0400 SaO2% (BldA) [Mass fraction] 99 % Ron Doreen Other [facility] Other 06-06-2023 15:20-0400 Systolic blood pressure 128 mm[Hg] Ron Doreen Other [facility] Other 04-30-2023 11:40-0400 Body height 168.91 cm Ron Doreen Other [facility] Other 04-30-2023 11:40-0400 Body mass index (BMI) [Ratio] 30.52 kg/m2 Ron Doreen Other [facility] Other 04-30-2023 11:40-0400 Body temperature 96.9 [degF] Ron Doreen Other [facility] Other 04-30-2023 11:40-0400 Body weight 87.09 kg Ron Doreen Other [facility] Other 04-30-2023 11:40-0400 Diastolic blood pressure 80 mm[Hg] Ron Doreen Other [facility] Other 04-30-2023 11:40-0400 Respiratory rate 18 /min Ron Doreen Other [facility] Other 04-30-2023 11:40-0400 SaO2% (BldA) [Mass fraction] 98 % Ron Doreen Other [facility] Other 04-30-2023 11:40-0400 Systolic blood pressure 150 mm[Hg] Ron Doreen Other [facility] Other 04-06-2023 09:00-0400 Body height 168.91 cm Ron Doreen Other [facility] Other 04-06-2023 09:00-0400 Body mass index (BMI) [Ratio] 30.36 kg/m2 Ron Doreen Other [facility] Other 04-06-2023 09:00-0400 Body weight 86.64 kg Ron Doreen Other [facility] Other 04-06-2023 09:00-0400 Diastolic blood pressure 54 mm[Hg] Ron Doreen Other [facility] Other 04-06-2023 09:00-0400 Respiratory rate 18 /min Ron Doreen Other [facility] Other 04-06-2023 09:00-0400 SaO2% (BldA) [Mass fraction] 98 % Ron Doreen Other [facility] Other 04-06-2023 09:00-0400 Systolic blood pressure 144 mm[Hg] Ron Doreen Other [facility] Other 04-02-2023 14:40-0400 Body height 168.91 cm Ron Doreen Other [facility] Other 04-02-2023 14:40-0400 Body mass index (BMI) [Ratio] 30.55 kg/m2 Ron Doreen Other [facility] Other 04-02-2023 14:40-0400 Body temperature 97 [degF] Ron Doreen Other [facility] Other 04-02-2023 14:40-0400 Body weight 87.18 kg Ron Doreen Other [facility] Other 04-02-2023 14:40-0400 Diastolic blood pressure 76 mm[Hg] Ron Doreen Other [facility] Other 04-02-2023 14:40-0400 Respiratory rate 18 /min Ron Doreen Other [facility] Other 04-02-2023 14:40-0400 SaO2% (BldA) [Mass fraction] 98 % Ron Doreen [facility] 04-02-2023 14:40-0400 Systolic blood pressure 183 mm[Hg] Ron Doreen [facility] 03-07-2023 09:20-0400 Body height 168.91 cm Ron Doreen [facility] 03-07-2023 09:20-0400 Body mass index (BMI) [Ratio] 30.52 kg/m2 Ron Doreen [facility] 03-07-2023 09:20-0400 Body temperature 97.1 [degF] Ron Doreen [facility] 03-07-2023 09:20-0400 Body weight 87.09 kg Ron Doreen [facility] Other 03-07-2023 09:20-0400 Diastolic blood pressure 72 mm[Hg] Ron Doreen [facility] 03-07-2023 09:20-0400 Respiratory rate 18 /min Ron Doreen [facility] 03-07-2023 09:20-0400 SaO2% (BldA) [Mass fraction] 97 % Ron Doreen [facility] 03-07-2023 09:20-0400 Systolic blood pressure 130 mm[Hg] Ron Doreen [facility] Other 12-20-2022 13:20-0400 Body height 168.91 cm Ron Doreen [facility] Other 12-20-2022 13:20-0400 Body mass index (BMI) [Ratio] 30.68 kg/m2 Ron Doreen [facility] Other 12-20-2022 13:20-0400 Body temperature 97.1 [degF] Ron Doreen [facility] Other 12-20-2022 13:20-0400 Body weight 87.54 kg Ron Doreen [facility] Other 12-20-2022 13:20-0400 Diastolic blood pressure 72 mm[Hg] Ron Doreen [facility] Other 12-20-2022 13:20-0400 Respiratory rate 18 /min Ron Doreen [facility] Other 12-20-2022 13:20-0400 SaO2% (BldA) [Mass fraction] 99 % Ron Doreen [facility] Other 12-20-2022 13:20-0400 Systolic blood pressure 139 mm[Hg] Ron Doreen [facility] Other 11-05-2022 14:00-0500 Body height 168.91 cm Ron Doreen [facility] Other 11-05-2022 14:00-0500 Body mass index (BMI) [Ratio] 30.59 kg/m2 Ron Doreen [facility] Other 11-05-2022 14:00-0500 Body temperature 96.8 [degF] Ron Doreen [facility] Other 11-05-2022 14:00-0500 Body weight 87.27 kg Ron Doreen [facility] Other 11-05-2022 14:00-0500 Diastolic blood pressure 72 mm[Hg] Ron Doreen [facility] Other 11-05-2022 14:00-0500 Respiratory rate 18 /min Ron Doreen [facility] Other 11-05-2022 14:00-0500 SaO2% (BldA) [Mass fraction] 98 % Ron Doreen [facility] Other 11-05-2022 14:00-0500 Systolic blood pressure 157 mm[Hg] Ron Doreen [facility] Other 09-27-2022 16:00-0500 Body height 168.91 cm Jana Monson Other [facility] 09-27-2022 16:00-0500 Body mass index (BMI) [Ratio] 30.55 kg/m2 Jana Monson [facility] 09-27-2022 16:00-0500 Body temperature 96.8 [degF] Jana Monson [facility] Other 09-27-2022 16:00-0500 Body weight 87.18 kg Jana Monson Other [facility] Other 09-27-2022 16:00-0500 Diastolic blood pressure 73 mm[Hg] Jana Monson Other [facility] Other 09-27-2022 16:00-0500 Respiratory rate 18 /min Jana Monson Other [facility] 09-27-2022 16:00-0500 SaO2% (BldA) [Mass fraction] 98 % Jana Monson [facility] Other 09-27-2022 16:00-0500 Systolic blood pressure 159 mm[Hg] Jana Monson [facility] 08-22-2022 12:00-0500 Body height 168.91 cm Ron Doreen [facility] Other 08-22-2022 12:00-0500 Body mass index (BMI) [Ratio] 30.65 kg/m2 Ron Doreen [facility] Other 08-22-2022 12:00-0500 Body temperature 96.9 [degF] Ron Doreen [facility] Other 08-22-2022 12:00-0500 Body weight 87.45 kg Ron Doreen [facility] Other 08-22-2022 12:00-0500 Diastolic blood pressure 75 mm[Hg] Ron Doreen [facility] Other 08-22-2022 12:00-0500 Respiratory rate 18 /min Ron Doreen [facility] 08-22-2022 12:00-0500 SaO2% (BldA) [Mass fraction] 96 % Ron Doreen [facility] 08-22-2022 12:00-0500 Systolic blood pressure 121 mm[Hg] Ron Doreen [facility] Other 05-08-2022 10:20-0400 Body height 168.91 cm Ron Doreen [facility] Other 05-08-2022 10:20-0400 Body mass index (BMI) [Ratio] 31.54 kg/m2 Ron Doreen [facility] Other 05-08-2022 10:20-0400 Body temperature 97.6 [degF] Ron Doreen [facility] Other 05-08-2022 10:20-0400 Body weight 89.99 kg Ron Doreen [facility] Other 05-08-2022 10:20-0400 Diastolic blood pressure 68 mm[Hg] Ron Doreen [facility] Other 05-08-2022 10:20-0400 Respiratory rate 18 /min Ron Doreen [facility] Other 05-08-2022 10:20-0400 SaO2% (BldA) [Mass fraction] 98 % Ron Doreen [facility] Other 05-08-2022 10:20-0400 Systolic blood pressure 131 mm[Hg] Ron Doreen [facility] Other 01-18-2022 10:20-0400 Body height 168.91 cm Ron Doreen [facility] Other 01-18-2022 10:20-0400 Body mass index (BMI) [Ratio] 31 kg/m2 Ron Doreen [facility] Other 01-18-2022 10:20-0400 Body temperature 96.4 [degF] Ron Doreen [facility] Other 01-18-2022 10:20-0400 Body weight 88.45 kg Ron Doreen [facility] Other 01-18-2022 10:20-0400 Diastolic blood pressure 74 mm[Hg] Ron Doreen [facility] Other 01-18-2022 10:20-0400 Respiratory rate 18 /min Ron Doreen [facility] Other 01-18-2022 10:20-0400 SaO2% (BldA) [Mass fraction] 97 % Ron Doreen [facility] Other 01-18-2022 10:20-0400 Systolic blood pressure 170 mm[Hg] Ron Doreen [facility] Other Encounters Encounter Date Encounter Type Care Provider Facility Start: 01-17-2024 End: 01-17-2024 ambulatory THUAN DELVALLE [facility] Start: 01-16-2024 End: 01-16-2024 ambulatory GA CRESPO Not Available Start: 12-21-2023 Refill Luis dominique PA-C Work Phone: [facility] Comment on above: Med Refill Start: 11-28-2023 End: 11-28-2023 ambulatory GREG TINEO Not Available Start: 11-18-2023 End: 11-18-2023 ambulatory Ron Doreen [facility] Start: 11-18-2023 Office outpatient visit 15 minutes Ron Doreen [facility] Start: 11-05-2023 End: 11-05-2023 ambulatory GA Josh CRESPO Not Available Start: 11-04-2023 (INJECTION) INJECTION [facility] Doreen [facility] Start: 11-04-2023 End: 11-04-2023 ambulatory Ron Doreen [facility] Start: 10-22-2023 End: 10-22-2023 ambulatory GA H CRESPO Not Available Start: 10-15-2023 End: 10-15-2023 ambulatory Ron Doreen [facility] Start: 10-15-2023 Office outpatient visit 15 minutes Ron Doreen [facility] Start: 10-08-2023 End: 10-08-2023 ambulatory Aziz Bakhous [facility] Start: 10-08-2023 Telephone encounter Aziz Bakhous [facility] Start: 09-15-2023 End: 09-15-2023 ambulatory Ron Doreen [facility] Start: 09-15-2023 Telephone encounter Ron Doreen [facility] Start: 09-09-2023 End: 09-09-2023 ambulatory Ron Doreen [facility] Start: 09-09-2023 Telephone encounter Ron Doreen [facility] Start: 08-27-2023 (INJECTION) INJECTION Aziz Bakhous [facility] Start: 08-27-2023 End: 08-27-2023 ambulatory Aziz Bakhous [facility] Start: 08-15-2023 (INJECTION) INJECTION [facility] D[facility] Start: 08-15-2023 End: 08-15-2023 ambulatory Ron Doreen [facility] Start: 08-13-2023 (INJECTION) INJECTION [facility] Start: 08-13-2023 End: 08-13-2023 ambulatory Ron Doreen [facility] Start: 08-01-2023 End: 08-01-2023 ambulatory Ron Doreen [facility] Start: 08-01-2023 Office outpatient visit 15 minutes Ron Doreen [facility] Start: 06-24-2023 End: 06-24-2023 ambulatory Ron Doreen [facility] Start: 06-24-2023 Office outpatient visit 10 minutes Ron Doreen [facility] Start: 06-06-2023 End: 06-06-2023 ambulatory Ron Doreen [facility] Start: 06-06-2023 Office outpatient visit 15 minutes Ron Doreen [facility] Start: 04-30-2023 End: 04-30-2023 ambulatory Ron Doreen [facility] Start: 04-30-2023 Office outpatient visit 15 minutes Ron Doreen [facility] Start: 04-06-2023 (INJECTION) INJECTION [facility] Start: 04-06-2023 End: 04-06-2023 ambulatory Ron Doreen [facility] Start: 04-06-2023 Telephone encounter Ron Doreen [facility] Start: 04-02-2023 End: 04-02-2023 ambulatory Ron Doreen [facility] Start: 04-02-2023 Office outpatient visit 15 minutes Ron Doreen [facility] Start: 04-02-2023 Telephone encounter Ron Doreen [facility] Start: 03-07-2023 End: 03-07-2023 ambulatory Ron Doreen [facility] Start: 03-07-2023 Office outpatient visit 15 minutes Ron Doreen [facility] Start: 01-22-2023 End: 01-23-2023 ambulatory RON DOREEN Facility:[facility] Start: 12-20-2022 End: 12-20-2022 ambulatory Ron Doreen [facility] Start: 12-20-2022 Office outpatient visit 15 minutes Ron Doreen [facility] Start: 12-17-2022 End: 12-18-[address] DHRUV RUBI . Facility:[facility] Start: 12-10-2022 End: 12-11-2022 ambulatory RON DOREEN Facility:[facility] Start: 11-20-2022 End: 11-21-[address] BENI APARICIO Facility:[facility] Start: 11-05-2022 End: 11-05-2022 ambulatory Ron Doreen [facility] Start: 11-05-2022 Office outpatient visit 15 minutes Ron Doreen [facility] Start: 10-29-2022 End: 10-30-[address] JANA MONSON Facility:[facility] Start: 10-24-2022 End: 10-24-[address] LILLIAN ACOSTA . Facility:[facility] Start: 10-24-2022 End: 10-25-[address] DHRUV RUBI . Facility:[facility] Start: 09-27-2022 End: 09-27-2022 ambulatory Jana Monson [facility] Start: 09-27-2022 Office outpatient visit 15 minutes Jana Iona [facility] Start: 09-18-2022 End: 09-19-2022 ambulatory RON DOREEN Facility:[facility] Start: 09-11-2022 End: 09-11-[address] DHRUV RUBI . Facility:[facility] Start: 08-22-2022 End: 08-22-2022 ambulatory Ron Doreen [facility] Start: 08-22-2022 Office outpatient visit 15 minutes Ron Doreen [facility] Start: 08-13-2022 End: 08-14-2022 ambulatory RON DOREEN Facility:[facility] Start: 06-25-2022 End: 06-26-[address] DHRUV RUBI . Facility:[facility] Start: 06-18-2022 End: 06-18-[address] DHRUV RUBI . Facility:[facility] Start: 06-01-2022 End: 06-02-[address] YANET HUERTA Facility:[facility] Start: 05-28-2022 End: 05-28-2022 ambulatory Ron Doreen [facility] Start: 05-28-2022 Telephone encounter Ron Doreen [facility] Start: 05-21-2022 End: 05-22-[address] DHRUV RUBI . Facility:[facility] Start: 05-16-2022 End: 05-16-2022 ambulatory Ron Doreen [facility] Start: 05-16-2022 Telephone encounter Ron Doreen [facility] Start: 05-10-2022 End: 05-10-2022 ambulatory Ron Doreen [facility] Start: 05-10-2022 Telephone encounter Ron Doreen [facility] Start: 05-08-2022 End: 05-08-2022 ambulatory Ron Doreen [facility] Start: 05-08-2022 Office outpatient visit 25 minutes Ron Doreen [facility] Start: 05-02-2022 End: 05-03-2022 ambulatory RON DOREEN Facility: Start: 04-24-2022 End: 04-24-2022 ambulatory Mary Anne Mensahs [facility] Start: 04-24-2022 Telephone encounter Azduc Shaferhous [facility] Start: 01-18-2022 End: 01-18-2022 ambulatory Ron Doreen [facility] Start: 01-18-2022 Office outpatient visit 25 minutes Ron Doreen [facility] Start: 05-21-2017 End: 05-22-2017 Ambulatory DEFAULT PHYSICIAN Facility:[facility] Procedures Date Procedure Procedure Detail Performing [...] 03-19-2024 Adult BMI Screening Adult BMI Screening [facility] Start: 03-19-2024 Tobacco Screening Tobacco Screening [facility] Start: 06-07-2023 COVID-19 Vaccine () COVID-19 Vaccine () [facility] Start: 06-07-2023 Influenza vaccination Influenza Vaccine [facility] Start: 12-28-2021 Depression Screening Depression Screening [facility] Start: 2009 Fall Risk Screening Fall Risk Screening [facility] Start: 1994 Administration of varicella zoster vaccine Zoster (Shingles) Vaccine (1 of 2) [facility] Start: 12-15-1963 DTaP,Tdap and Td Vaccines (1 - Tdap) DTaP,Tdap and Td Vaccines (1 - Tdap) [facility] Start: 1962 Adult BMI Follow Up Plan Adult BMI Follow Up Plan [facility] Start: 1944 Medicare Annual Wellness Visit Medicare Annual Wellness Visit [facility] Immunizations Immunization Date Immunization Notes Care Provider Fa cili 07-18-2020 Seasonal trivalent influenza vaccine, adjuvanted, preservative free Luis Kb PA-C Work Phone: [facility] 07-18-2020 influenza virus vacc ine, unspecified formulation Luis Kb PA-C Work Phone: [facility] 07-22-2019 Seasonal trivalent influenza vaccine, adjuvanted, preservative free Luis Kb PA-C Work Phone: [facility] 07-14-2018 Seasonal trivalent influenza vaccine, adjuvanted, preservative free Luis Kb PA-C Work Phone: [facility] 07-15-2017 pneumococcal conjuga te vaccine, 13 valent Luis Kb PA-C Work Phone: [facility] 07-08-2017 influenza, high dose seasonal, preservative-free Luis Kb PA-C Work Phone: [facility] 07-25-2016 influenza, high dose seasonal, preservative-free Luis Kb PA-C Work Phone: [facility] 07-11-2015 influenza, high dose seasonal, preservative-free Luis Kb PA-C Work Phone: [facility] 07-16-2014 influenza, seasonal, injectable Luis Kb PA-C Work Phone: [facility] 07-10-2013 influenza, seasonal, injectable Luis Kb PA-C Work Phone: [facility] 08-08-2012 influenza virus vacc ine, unspecified formulation [facility] pneumococcal polysaccharide vaccine, 23 valent Luis Kb PA-C Work Phone: [facility] 07-11-2011 influenza virus vacc ine, unspecified formulation Luis Kb PA-C Work Phone: [facility] 08-15-2010 influenza virus vacc ine, unspecified formulation Luis Kb PA-C Work Phone: [facility] 07-26-2009 influenza virus vacc ine, unspecified formulation Luis Kb PA-C Work Phone: [facility] 08-04-2008 influenza virus vacc ine, unspecified formulation [facility]C [facility] 08-13-2007 influenza virus vacc ine, unspecified formulation Luis Kb PA-C Work Phone: [facility] 08-11-2004 influenza virus vacc ine, unspecified formulation [facility]C [facility] 08-09-2003 influenza virus vacc ine, unspecified formulation [facility]b [facility]-C [facility] 08-09-2003 pneumococcal polysaccharide vaccine, 23 valent Luis Kb PA-C Work Phone: [facility] Payers Date Payer Category Payer Medicare [employer] MEDICARE A ETNA MEDICARE PLAN (HMO) [id number] 2021-Present [phone] [address] [place] [address] [id number] 1960 Medicare [id number] 1944 Unknown [id number] [id number] 1944 Unknown [id number] [id number]3 1944 Unknown [id number] 2.16.840.1.751104.3.579.2.593 1944 Unknown [id number] 2.16.840.1.525180.3.579.2.593 1944 Unknown [id number] 2.16.840.1.737407.3.579.2.593 1944 Unknown [id number] 2.16.840.1.593232.3.579.2.593 1944 Unknown [id number] 2.16.840.1.311905.3.579.2.593 1944 Unknown [id number] 2.16.840.1.943407.3.579.2.593 1944 Unknown [id number] 2.16.840.1.507847.3.579.2.593 1944 Unknown [id number] 2.16.840.1.007688.3.579.2.593 1944 Unknown [id number] 2.16.840.1.009575.3.579.2.593 1944 Unknown [id number] 2.16.840.1.024219.3.579.2.593 1944 Unknown [id number] 2.16.840.1.823998.3.579.2.593 1944 Unknown [id number] 2.16.840.1.025078.3.579.2.593 1944 Unknown [id number] 2.16.840.1.003891.3.579.2.593 1944 Unknown [id number] 2.16.840.1.704236.3.579.2.593 1944 Unknown [id number] 2.16.840.1.529513.3.579.2.1259 1944 Unknown [id number] 2.16.840.1.784376.3.579.2.9 1944 Unknown [id number] 2.16.840.1.189582.3.579.2.9 1944 Unknown [id number] 2.16.840.1.418649.3.579.2.9 1944 Unknown [id number] 2.16.840.1.875707.3.579.2.1286 Unknown Social History Date Type Detail Facility Unknown if ever smoked [facility] Start: 12-28-2020 End: 03-19-2023 Sex Assigned At [facility] Start: 09-20-2022 Tobacco smoking status [facility] Ex-smoker [facility] End: 10-07-1969 History of tobacco use Current smoker [facility] End: 10-07-1969 History of tobacco use Cigarette Smoker [facility] Start: 09-20-2022 Tobacco use and exposure Smokeless tobacco non-user [facility] Start: 03-19-2023 Alcohol intake Ex-drinker (finding) [facility] Start: 12-28-2020 End: 03-19-2023 History of Social function [facility] Do you belong to any clubs or organizations such as advent groups, unions, fraternal or athletic groups, or school groups? No [facility] Are you now , , , , never or living with a partner? [facility] How hard is it for y ou to pay for the very basics like food, housing, medical care, and heating Not hard at all [facility] Do you feel stress - tense, restless, nervous, or anxious, or unable to sleep at night because your mind is troubled all the time - these days [OSQ] Not at all [facility] Start: 03-10-1946 Sex Assigned At Not on file [employer] [facility] Goals Date Patient Goal Desired [...] she is not a suitable candidate for Ashley Phelpsance or finerenone. Nov, Secondary hyperparathyroidism (ICD-10 - N25.81) MBD parameters including PTH, calcium, Vit D and phosphorus are within the goal. Continue Vit D 5000 units daily Nov, Hyperkalemia (ICD-10 - E87.5) She has hyperkalemia likely due to the CKD and lisinopril. Her potassium improved with dietary restriction and Lasix. [facility] 01-29-2024 Evaluation note* Encounter Date Diagnosis Assessment Notes Treatment Notes Treatment Clinical Notes Oct, Anemia of renal disease (ICD-10 - D63.1) Oct, CKD (chronic kidney disease) stage 4, GFR 15-29 ml/min (ICD-10 - N18.4) [facility] 01-09-2024 Evaluation note* Encounter Date Diagnosis [...] potassium improved with dietary restriction and Lasix. [facility] 12-04-2023 Evaluation note* Encounter Date Diagnosis [...] 4, GFR 15-29 ml/min (ICD-10 - N18.4) [facility] 11-21-2023 Evaluation note* Encounter Date Diagnosis Assessment Notes Treatment Notes Treatment Clinical Notes Aug, Anemia of renal disease (ICD-10 - D63.1) Aug, CKD (chronic kidney disease) stage 4, GFR 15-29 ml/min (ICD-10 - N18.4) [facility] 11-09-2023 Evaluation note* Encounter Date Diagnosis [...] of kidney mass hydronephrosis or kidney stones. [facility] 10-26-2023 Evaluation note* Encounter Date Diagnosis [...] potassium improved with dietary restriction and Lasix. [facility] 09-18-2023 Evaluation note* Encounter Date Diagnosis [...] potassium improved with dietary restriction and Lasix. [facility] 08-31-2023 Evaluation note* Encounter Date Diagnosis [...] potassium improved with dietary restriction and Lasix. [facility] 07-25-2023 Evaluation note* Encounter Date Diagnosis [...] to normal with dietary restriction and Lasix. [facility] 07-01-2023 Evaluation note* Encounter Date Diagnosis Assessment Notes Treatment Notes Treatment Clinical Notes Apr, CKD (chronic kidney disease) stage 4, GFR 15-29 ml/min (ICD-10 - N18.4) Apr, Anemia of renal disease (ICD-10 - D63.1) [facility] 06-27-2023 Evaluation note* Encounter Date Diagnosis [...] to normal with dietary restriction and Lasix. [facility] 06-01-2023 Evaluation note* Encounter Date Diagnosis [...] potassium diet and provide information about it. [facility] 03-16-2023 Evaluation note* Encounter Date Diagnosis [...] to Continue Vit D 5000 units daily [facility] 01-30-2023 Evaluation note* Encounter Date Diagnosis [...] to Continue Vit D 5000 units daily [facility] 12-22-2022 Evaluation note* Encounter Date Diagnosis [...] to Continue Vit D 5000 units daily [facility] 11-16-2022 Evaluation note* Encounter Date Diagnosis [...] to Continue Vit D 5000 units daily [facility] 08-04-2022 Evaluation note* Encounter Date Diagnosis Assessment Notes Treatment Notes Treatment Clinical Notes May, Hypertensive chronic kidney disease with stage 1 through stage 4 chronic kidney disease, or unspecified chronic kidney disease (ICD-10 - I12.9) [facility] 08-02-2022 Evaluation note* Encounter Date Diagnosis [...] to Continue Vit D 5000 units daily [facility] 07-19-2022 Evaluation note* Encounter Date Diagnosis Assessment Notes Treatment Notes Treatment Clinical Notes Apr, Hypertensive chronic kidney disease with stage 1 through stage 4 chronic kidney disease, or unspecified chronic kidney disease (ICD-10 - I12.9) [facility] 04-14-2022 Evaluation note* Encounter Date Diagnosis [...] to take Vit D 1000 units daily [facility] Evaluation noteNo InformationNort [employer] Other Evaluation note* Diagnosis Atherosclerosis of [place] coronary artery of [place] heart without angina 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 Hypertensive urgency Shortness of breath Paroxysmal atrial fibrillation ([facility]) Atrial fibrillation Localized edema [facility] - [facility]orted* Type Description Date [...] NOSE 10/2019 Surgical History QUAD BYPASS AT [facility] [place] 01/01/2021 Hospitalization History ELEVATED BLOOD PRESSURE Hospitalization History SEE ABOVE Hospitalization History COVID 09/2020 [facility] History general Narrative - Reported* Type [...] History SEE ABOVE Hospitalization History COVID 09/2020 [facility] [employer] general Narrative - Reported* Type Description Date [...] History SEE ABOVE Hospitalization History COVID 09/2020 [facility] general Narrative - ReportedNoEpuramat Other history general Narrative - Reported* Type [...] NOSE 10/2019 Surgical History QUAD BYPASS AT [facility] 01/01/2021 Hospitalization History ELEVATED BLOOD PRESSURE Hospitalization History SEE ABOVE Hospitalization History COVID 09/2020 [facility] InstructionsNot on filedocumented in this encounter [facility] Summary Purpose Family History No Family History Records FoundNo Family History Records FoundNo Family History Records FoundNo Family History Records Found Advance Directives No Advanced Directives Records FoundLatest Code Status on File Code Status Date Activated Date Inactivated Comments Full Code 12/28/2020 2:33 PM 01/03/2021 7:38 PM Additional Source Comments INFORMATION SOURCE (unrecogn ized section and content) DATE CREATED AUTHOR 04/02/2018 [facility] DATE CREATED AUTHOR AUTHOR'S ORGANIZ ATION 01/27/2023 [facility] DATE CREATED AUTHOR AUTHOR'S ORGANIZ ATION 01/17/2024 [facility] EPIC DATE CREATED AUTHOR AUTHOR'S ORGANIZ ATION 01/18/2024 [facility] REASON FOR VISIT (unrecogniz ed section and content) Reason Comments Med Refill Care Teams (unrecognized sec tion and content) Last Picker Relationship Specialty Start Date End Date Dhruv Rubi MD [address] [place] [address] PCP - General Family Medicine 10/20/20 FOR [...] BE BASED ON THE PRIMARY CLINICAL RECORDS. [employer] provides no warranty or guarantee of the accuracy or completeness of information in this document.
[2024-01-21 08:18] LABS: Creatinine Urine Random 57.84 mg/dL (20.00-300.00); Microalbum Creatinine Ratio Ur 580.9 mg/g (0.0-29.9); Microalbumin Urine Random 33.6 mg/dL (<=30.0)
[2024-01-21 09:22] LABS: Free T4 0.92 ng/dL (0.76-1.46)
[2024-01-21 11:18] LABS: Albumin Level 3.7 g/dL (3.4-5.0); Anion Gap 19.6; BUN Creatinine Ratio 17.1; Calcium 9.8 mg/dL (8.5-10.1); Carbon Dioxide 19.5 mmol/L (21.0-32.0); Chloride 106 mmol/L (98-107); Chol HDL Ratio 2.9; Cholesterol 156 mg/dL (<=200); Estimated GFR (African America 28 (>=60); Estimated GFR (Non-African Ame 23 (>=60); Free T3 3.05 pg/mL (2.18-3.98); Glucose 204 mg/dL (74-106); HDL Cholesterol 54 mg/dL (40-60); Phosphorus 3.5 mg/dL (2.6-4.7); Potassium 5.1 mmol/L (3.5-5.1); Sodium 140 mmol/L (136-145); Thyroid Stimulating Hormone 0.254 uIU/mL (0.358-3.740); Triglycerides 165 mg/dL (<=150)
== END 2024-01-21 06:44 | disposition home or self-care (01) ==
LOC: LAB 06:44
PROVIDERS: PCP Family Medicine; Visit Provider Internal Medicine
DX: E11.29 Type 2 diabetes mellitus with other diabetic kidney complication (principal); E55.9 Vitamin D deficiency, unspecified; E06.3 Autoimmune thyroiditis; I10 Essential (primary) hypertension
CPT/HCPCS: 36415; 80061; 80069; 82043; 82306; 82570; 84439; 84443; 84481

== ENCOUNTER 2024-01-21 06:48 | Outpatient (OUT) | payer MEDICARE, SELFPAY ==
--- OUTSIDE RECORDS SUMMARY | 2024-01-21 06:51 | XMS_ITS | CCD ---
Author Organization [facility] Care Team Providers Care Data Governance Analyst Name Role Phone PHYSICIAN, DEFAULT Unavailable Unavailable [...] BENI [employer] Unavailable HOY ., DR BRATLETT Primary Care Unavailable MARVIN, ERNESTINA Attending Unavailable [...] Unavailable Dhruv Rubi MD Primary Care Provider [phone] GA CRESPO Attending Unavailable GA CRESPO Attending Unavailable GREG TINEO Attending Unavailable GA CRESPO Attending Unavailable THUAN DELVALLE Attending Unavailable DHRUV RUBI Referring Unavailable DHRUV RUBI Primary Care Unavailable Allergies Allergy Classification Reported Allergen(s) Allergy Type Date of Onset Reaction(s) Facility (20 sources) amLODIPine; Translations: [AMLODIPINE] Drug Allergy 03-28-20 05 [facility] [email or web address] [facility] (20 sources) Amoxicillin / Clavulanate Drug Allergy 11-23-19 21 Rash [employer] Other (20 sources) Contrast media Propensity to adverse reactions Unknown [employer] Other (2 sources) Doxazosin; Translations: [doxazosin] Drug Allergy Unknown [employer] Other (20 sources) Sulfamethoxazole / Trimethoprim Drug Allergy 11-23-19 Rash [employer] Other (20 sources) Doxazosin; Translations: [DOXAZOSIN] Drug Allergy 11-23-19 Unknown [employer] Other (9 sources) Amoxicillin / Clavulanate; Translations: [Augmentin] Drug Allergy 11-16-19 16 Unknown [facility] (1 source) amLODIPine Drug Allergy 04-25-20 14 [facility] (1 source) Sulfamethoxazole / Trimethoprim Drug Allergy 03-09-20 13 [facility] (2 sources) Iodinated Contrast Media; Translations: [IODINATED CONTRAST MEDIA] Propensity to adverse reactions to drug 11-23-19 [employer] (1 source) Sulfamethoxazole / Trimethoprim; Translations: [SULFAMETHOXAZOLE-T RIMETHOPRIM] Drug Allergy 11-23-19 [facility] (1 source) AMOXICILLIN-POT CLAVULANATE; Translations: [AMOXICILLIN-POT CLAVULANATE] Propensity to adverse reactions to drug (disorder) 11-23-19 [facility] Medications Current Medications Medication Drug Class(es) [...] coronary artery bypass graft , Atherosclerosis of [place] coronary artery of [place] heart without angina pectoris , Paroxysmal atrial [...] (LIPITOR) 80 mg tablet Indications: Atherosclerosis of [place] coronary artery of [place] heart without angina pectoris , H/O four [...] Orally every 12 hours Active epoetin johnna-epbx 97445 UNT/ML Injectable Solution [Retacrit] (14 sources) Retacrit 22828 U NIT/ML as directed Injection Active ferrous [...] 12/05/2021 Active take 2 tablets by mo [facility] every twenty-four hours Liothyronine Sodium 5 MCG 2 tablets on a n empty stomach Orally Once a day Active take 2 tablets by mo [facility] every twenty-four hours lisinopril 10 mg oral [...] in the morning. 0 12/19/2020 Active retacrit 70293 unit/ml solution (5 sources) Retacrit 63669 UNIT/ML as directed Injection Active Sennosides-Docusate Sodium [...] Coronary atherosclerosis; Translations: [Atherosclerotic heart disease of [place] coronary artery without angina pectoris] Onset: 1 [...] 28.8 % Critically low 36.0-48.[address] [facility] Comment on above: Performed By: #### H H #### [facility] [address] [place], [place] [address] Dr. Ember Teague Hemoglobin (Bld) [Mass/Vol] 9.6 g/dL Critically low 12.0-16.[address] [facility] Comment on above: Performed By: #### H H #### [facility] [address] [address] [address] Ember Teague MCH (RBC) [Entitic mass] 30.7 pg Normal 26.7-34.0 [facility] Comment on above: Performed By: #### H H #### [facility] [address] [place] [address] Dr. Ember Teague MCHC (RBC) [Mass/Vol] 33.3 g/dL Normal 29.9-35.2 [facility] Comment on above: Performed By: #### H H #### [facility] [address] [place] [address] Dr. Ember Teague MCV (RBC) [Entitic vol] 92.0 fL Normal 81.0-99.0 [facility] Comment on above: Performed By: #### H H #### [facility] [address] [place] [address] Dr. Ember Teague PLT 214 103/ul Normal 150-450 [facility] Comment on above: Performed By: #### H H #### [facility] [address] [place] [address] Dr. Ember Teague RBC 3.13 106/ul Critically low 4.20-5.40 [facility] Comment on above: Performed By: #### H H #### [facility] [address] [place] [address] Dr. Ember Teague WBC 7.4 103/ul Normal 4.0-11.0 [facility] Comment on above: Performed By: #### H H #### [facility] [address] [place] [address] Dr. Ember Teague MAGNESIUMon 01-22-2023 Magnesium [Mass/Vol] 1.8 mg/dL Normal 1.8-2.4 [facility] Comment on above: Performed By: #### M G, RENAL #### [facility] [address] [place] [address] Dr. Ember Teague RENAL FUNCTION PANELon 01-22 Albumin [Mass/Vol] 3.6 g/dL Normal 3.4-5.0 [facility] Comment on above: Performed By: #### M G, RENAL #### [facility] [address] [address] [address] Ember Teague Calcium [Mass/Vol] 9.7 mg/dL Normal 8.5-10.1 [facility] Comment on above: Performed By: #### M G, RENAL #### [facility] [address] [address] [address] Ember Teague Chloride [Moles/Vol] 105 mmol/L Normal 98-[address] [facility] Comment on above: Performed By: #### M G, RENAL #### [facility] [address] [address] [address] Ember Teague CO2 [Moles/Vol] 22.6 mmol/L Normal 21.0-32.0 [facility] Comment on above: Performed By: #### M G, RENAL #### [facility] [address] [place] [address] Dr. Ember Teague Creatinine [Mass/Vol] 2.18 mg/dL Critically high 0.55-1.[address] [facility] Comment on above: Performed By: #### M G, RENAL #### [facility] [address] [place] [address] Dr. Ember Teague EGFR-AF NICARAGUAN 26 mL/min/1.73m2 Critically low >=[address] [facility] Comment on above: Performed By: #### M G, RENAL #### [facility] [address] [place] [address] Dr. Ember Teague EGFR-NON AF NICARAGUAN 22 mL/min/1.73m2 Critically low >=[address] [facility] Comment on above: Performed By: #### M G, RENAL #### [facility] [address] [address] [address] Ember Teague Glucose [Mass/Vol] 134 mg/dL Critically high 74-106 [facility] Comment on above: Performed By: #### M G, RENAL #### [facility] [address] [address] [address] Ember Teague Phosphate [Mass/Vol] 4.6 mg/dL Normal 2.6-4.[address] [facility] Comment on above: Performed By: #### M G, RENAL #### [facility] [address] [place], [place] [address] Dr. Ember Teague Potassium [Moles/Vol] 5.1 mmol/L Normal 3.5-5.[address] [facility] Comment on above: Performed By: #### M G, RENAL #### [facility] [address] [address] [address] Ember Teague Sodium [Moles/Vol] 138 mmol/L Normal 136-145 [facility] Comment on above: Performed By: #### M G, RENAL #### [facility] [address] [place], [place] [address] Dr. Ember Teague Urea nitrogen [Mass/Vol] 61.0 mg/dL Critically high 7.0-18.[address] [facility] Comment on above: Performed By: #### M G, RENAL #### [facility] [address] [address] [address] Ember Teague MG MAMM SCREEN 3D MAY CADon 12-17-2022 MG MAMM SCREEN 3D MAY CAD Patient: KYLAH BERGER Exam Date: 12/17/2022 : 1945 Gender:F Ordering : DR DHRUV RUBI . Admission #: [id number] Family : Order #: [id number] CLICK HERE TO VIEW EXAM RADIOLOGY REPORT [...] lung cancer at age 61. LOCATION: [facility] BREAST COMPOSITION: Scattered areas fibroglandular [...] Aparicio MD on 12/17/2022 at 11:[address] [facility] FERRITINon 12-10-2022 Ferritin [Mass/Vol] 681.0 ng/mL Critically high 8.0-252.[address] [facility] Comment on above: Performed By: #### P THINT #### [facility] [address] [place] [address] Dr. Ember Teague HEMOGRAM AND PLATELon 2022 Hematocrit (Bld) [Volume fraction] 27.1 % Critically low 36.0-48.[address] [facility] Comment on above: Performed By: #### C VDTBH #### [facility] [address] [place] [address] Dr. Ember Teague Hemoglobin (Bld) [Mass/Vol] 9.7 g/dL Critically low 12.0-16.[address] [facility] Comment on above: Performed By: #### C VDTBH #### [facility] [address] [place] [address] Dr. Ember Teague MCH (RBC) [Entitic mass] 31.4 pg Normal 26.7-34.[address] [facility] Comment on above: Performed By: #### C VDTBH #### [facility] [address] [place] [address] Dr. Ember Teague MCHC (RBC) [Mass/Vol] 35.8 g/dL Critically high 29.9-35.[address] [facility] Comment on above: Performed By: #### C VDTBH #### [facility] [address] [place] [address] Dr. Ember Teague MCV (RBC) [Entitic vol] 87.7 fL Normal 81.0-99.[address] [facility] Comment on above: Performed By: #### C VDTBH #### [facility] [address] [place] [address] Dr. Ember Teague PLT 218 103/ul Normal 150-450 [facility] Comment on above: Performed By: #### C VDTBH #### [facility] [address] [address] [address] Ember Teague RBC 3.09 106/ul Critically low 4.20-5.40 [facility] Comment on above: Performed By: #### C VDTBH #### [facility] [address] [address] [address] Ember Teague WBC 6.6 103/ul Normal 4.0-11.[address] [facility] Comment on above: Performed By: #### C VDTBH #### [facility] [address] [address] [address] Ember Teague IRON AND TIBCon 12-10-2022 % SATURATION 30.2 % Normal [facility] Comment on above: Performed By: #### P THINT #### [facility] [address] [address] [address] Ember Teague Iron [Mass/Vol] 84.0 ug/dL Normal 50.0-170.0 [facility] Comment on above: Performed By: #### P THINT #### [facility] [address] [address] [address] Ember Teague TIBC DIRECT 278.0 ug/dL Normal 250.0-450.0 [facility] Comment on above: Performed By: #### P THINT #### [facility] [address] [address] [address] Ember Teague XR FOOT MAY MIN [...] BENI APARICIO Date: 2022-11-20 14:03 Normal [facility] HEMOGRAM AND PLATELon 2022 Hematocrit (Bld) [Volume fraction] 27.7 % Critically low 36.0-48.0 [facility] Comment on above: Performed By: #### R ENAL #### [facility] [address] [place] [address] Dr. Ember Teague Hemoglobin (Bld) [Mass/Vol] 10.0 g/dL Critically low 12.0-16.0 [facility] Comment on above: Performed By: #### R ENAL #### [facility] [address] [place] [address] Dr. Ember Teague MCH (RBC) [Entitic mass] 31.6 pg Normal 26.7-34.0 [facility] Comment on above: Performed By: #### R ENAL #### [facility] [address] [place] [address] Dr. Ember Teague MCHC (RBC) [Mass/Vol] 36.1 g/dL Critically high 29.9-35.2 [facility] Comment on above: Performed By: #### R ENAL #### [facility] [address] [place] [address] Dr. Ember Teague MCV (RBC) [Entitic vol] 87.7 fL Normal 81.0-99.0 [facility] Comment on above: Performed By: #### R ENAL #### [facility] [address] [place] [address] Dr. Ember Teague PLT 182 103/ul Normal 150-450 [facility] Comment on above: Performed By: #### R ENAL #### [facility] [address] [place] [address] Dr. Ember Teague RBC 3.16 106/ul Critically low 4.20-5.40 [facility] Comment on above: Performed By: #### R ENAL #### [facility] [address] [place] [address] Dr. Ember Teague WBC 6.8 103/ul Normal 4.0-11.[address] [facility] Comment on above: Performed By: #### R ENAL #### [facility] [address] [address] [address] Ember Teague PROF CHEM 8 (BAS METB)on Anion gap [Moles/Vol] 17.6 mmol/L Normal [facility] Comment on above: Performed By: #### C VDTBH #### [facility] [address] [place] [address] Dr. Ember Teague Calcium [Mass/Vol] 9.0 mg/dL Normal 8.5-10.1 [facility] Comment on above: Performed By: #### C VDTBH #### [facility] [address] [place] [address] Dr. Ember Teague Chloride [Moles/Vol] 104 mmol/L Normal 98-[address] [facility] Comment on above: Performed By: #### C VDTBH #### [facility] [address] [address] [address] Ember Teague CO2 [Moles/Vol] 22.2 mmol/L Normal 21.0-32.0 [facility] Comment on above: Performed By: #### C VDTBH #### [facility] [address] [place] [address] Dr. Ember Teague Creatinine [Mass/Vol] 2.03 mg/dL Critically high 0.55-1.[address] [facility] Comment on above: Performed By: #### C VDTBH #### [facility] [address] [place] [address] Dr. Ember Teague EGFR-AF NICARAGUAN 29 mL/min/1.73m2 Critically low >=[address] [facility] Comment on above: Performed By: #### C VDTBH #### [facility] [address] [place] [address] Dr. Ember Teague EGFR-NON AF NICARAGUAN 24 mL/min/1.73m2 Critically low >=60 [facility] Comment on above: Performed By: #### C VDTBH #### [facility] [address] [address] [address] Ember Teague Glucose [Mass/Vol] 154 mg/dL Critically high 74-106 T [facility] Comment on above: Performed By: #### C VDTBH #### [facility] [address] [address] [address] Ember Teague Potassium [Moles/Vol] 4.8 mmol/L Normal 3.5-5.[address] [facility] Comment on above: Performed By: #### C VDTBH #### [facility] [address] [address] [address] Ember Teague Sodium [Moles/Vol] 139 mmol/L Normal 136-145 [facility] Comment on above: Performed By: #### C VDTBH #### [facility] [address] [place] [address] Dr. Ember Teague Urea nitrogen [Mass/Vol] 43.0 mg/dL Critically high 7.0-18.[address] [facility] Comment on above: Performed By: #### C VDTBH #### [facility] [address] [place] [address] Dr. Ember Teague Urea nitrogen/Creatinine [Mass ratio] 21.2 mg/mg [facility] Comment on above: Performed By: #### C VDTBH #### [facility] [address] [place] [address] Dr. Ember Teague CULTURE SPUTUMon 10-24-2022 CULTURE SPUTUM Culture Observations : Beta lactamase positive Isolate 1 Haemophilus influenzae Moderate growth of [facility] Comment on above: Performed By: #### R ENAL #### [facility] [address] [place] [address] Dr. Ember Teague SPUTUM GRAM STAINon 10-24-19 COMMENTS Normal [facility] Comment on above: Performed By: #### R ENAL #### [facility] [address] [place] [address] Dr. Ember Teague DIPHTHEROIDS [facility] Comment on above: Performed By: #### R ENAL #### [facility] [address] [address] [address] Ember Teague EPITHELIALS >25 Normal [facility] Comment on above: Performed By: #### R ENAL #### [facility] [address] [address] [address] Ember Teague FUNGAL ELEMENTS Normal [facility] Comment on above: Performed By: #### R ENAL #### [facility] [address] [address] [address] Ember Teague GRAM NEG BACILLI Normal [facility] Comment on above: Performed By: #### R ENAL #### [facility] [address] [address] [address] Ember Teague GRAM NEG DIPPLOCOCCI FEW Normal [facility] Comment on above: Performed By: #### R ENAL #### [facility] [address] [place] [address] Dr. Ember Teague GRAM POS BACILLI FEW Normal [facility] Comment on above: Performed By: #### R ENAL #### [facility] [address] [address] [address] Ember Teague GRAM POSITIVE COCCI MANY Normal [facility] Comment on above: Performed By: #### R ENAL #### [facility] [address] [address] [address] Ember Teague WBC (Bld) [#/Vol] 10*3/uL Normal [facility] Comment on above: Performed By: #### R ENAL #### [facility] [address] [place] [address] Dr. Ember Teague XR CHEST 2 Von [...] No acute cardiopulmonary process. Electronically authenticated by: ANGLEINA BRISENO Date: 2022-10-24 16:22 Normal [facility] FERRITINon 09-18-2022 Ferritin [Mass/Vol] 612.0 ng/mL Critically high 8.0-252.0 [facility] Comment on above: Performed By: #### F ERR, FETIBC #### [facility] [address] [place] [address] Dr. Ember Teague HEMOGRAM AND PLATELon 2021 Hematocrit (Bld) [Volume fraction] 28.1 % Critically low 36.0-48.[address] [facility] Comment on above: Performed By: #### C BC #### [facility] [address] [place] [address] Dr. Ember Teague Hemoglobin (Bld) [Mass/Vol] 9.7 g/dL Critically low 12.0-16.[address] [facility] Comment on above: Performed By: #### C BC #### [facility] [address] [place] [address] Dr. Ember Teague MCH (RBC) [Entitic mass] 31.3 pg Normal 26.7-34.[address] [facility] Comment on above: Performed By: #### C BC #### [facility] [address] [place] [address] Dr. Ember Teague MCHC (RBC) [Mass/Vol] 34.5 g/dL Normal 29.9-35.2 [facility] Comment on above: Performed By: #### C BC #### [facility] [address] [place] [address] Dr. Ember Teague MCV (RBC) [Entitic vol] 90.6 fL Normal 81.0-99.0 [facility] Comment on above: Performed By: #### C BC #### [facility] [address] [place] [address] Dr. Ember Teague PLT 183 103/ul Normal 150-450 [facility] Comment on above: Performed By: #### C BC #### [facility] [address] [place] [address] Dr. Ember Teague RBC 3.10 106/ul Critically low 4.20-5.40 [facility] Comment on above: Performed By: #### C BC #### [facility] [address] [place] [address] Dr. Ember Teague WBC 7.2 103/ul Normal 4.0-11.0 [facility] Comment on above: Performed By: #### C BC #### [facility] [address] [place] [address] Dr. Ember Teague IRON AND TIBCon 09-18-2022 % SATURATION 36.0 % Normal [facility] Comment on above: Performed By: #### F ERR, FETIBC #### [facility] [address] [place] [address] Dr. Ember Teague Iron [Mass/Vol] 77.0 ug/dL Normal 50.0-170.0 [facility] Comment on above: Performed By: #### F ERR, FETIBC #### [facility] [address] [place] [address] Dr. Ember Teague TIBC DIRECT 214.0 ug/dL Critically low 250.0-450.0 [facility] Comment on above: Performed By: #### F ERR, FETIBC #### [facility] [address] [place] [address] Dr. Ember Teague RENAL FUNCTION PANELon 09-18 Albumin [Mass/Vol] 3.7 g/dL Normal 3.4-5.0 [facility] Comment on above: Performed By: #### R ENAL #### [facility] [address] [place] [address] Dr. Ember Teague Calcium [Mass/Vol] 9.5 mg/dL Normal 8.5-10.1 [facility] Comment on above: Performed By: #### R ENAL #### [facility] [address] [place] [address] Dr. Ember Teague Chloride [Moles/Vol] 103 mmol/L Normal 98-107 [facility] Comment on above: Performed By: #### R ENAL #### [facility] [address] [place] [address] Dr. Ember Teague CO2 [Moles/Vol] 21.1 mmol/L Normal 21.0-32.0 [facility] Comment on above: Performed By: #### R ENAL #### [facility] [address] [place] [address] Dr. Ember Teague Creatinine [Mass/Vol] 1.85 mg/dL Critically high 0.55-1.[address] [facility] Comment on above: Performed By: #### R ENAL #### [facility] [address] [place] [address] Dr. Ember Teague EGFR-AF NICARAGUAN 32 mL/min/1.73m2 Critically low >=[address] [facility] Comment on above: Performed By: #### R ENAL #### [facility] [address] [place] [address] Dr. Ember Teague EGFR-NON AF NICARAGUAN 26 mL/min/1.73m2 Critically low >=[address] [facility] Comment on above: Performed By: #### R ENAL #### [facility] [address] [place] [address] Dr. Ember Teague Glucose [Mass/Vol] 183 mg/dL Critically high 74-106 [facility] Comment on above: Performed By: #### R ENAL #### [facility] [address] [place] [address] Dr. Ember Teague Phosphate [Mass/Vol] 3.7 mg/dL Normal 2.6-4.[address] [facility] Comment on above: Performed By: #### R ENAL #### [facility] [address] [place] [address] Dr. Ember Teague Potassium [Moles/Vol] 4.9 mmol/L Normal 3.5-5.[address] [facility] Comment on above: Performed By: #### R ENAL #### [facility] [address] [place] [address] Dr. Ember Teague Sodium [Moles/Vol] 138 mmol/L Normal 136-145 [facility] Comment on above: Performed By: #### R ENAL #### [facility] [address] [place] [address] Dr. Ember Teague Urea nitrogen [Mass/Vol] 40.0 mg/dL Critically high 7.0-18.[address] [facility] Comment on above: Performed By: #### R ENAL #### [facility] [address] [place] [address] Dr. Ember Teague CULTURE URINEon 09-15-2022 CULTURE [...] Trimethoprim/Sulfamet hoxazole <=20 S F Normal The [facility] Comment on above: Performed By: #### R ENAL #### [facility] [address] [place] [address] Dr. Ember Teague BNPon 09-11-2022 Natriuretic peptide B (Bld) [Mass/Vol] 408.0 pg/mL Normal <=1,800.[address] [facility] Comment on above: Performed By: #### P THINT #### [facility] [address] [place] [address] Dr. Ember Teague CBC AUTO DIFFon 09-11-2022 BASO # 0.0 103/ul Normal 0.0-0.1 The [facility] Comment on above: Performed By: #### C BC #### [facility] [address] [place] [address] Dr. Ember Teague Basophils/100 WBC (Bld) 0.3 % Normal 0.2-2.0 The [facility] Comment on above: Performed By: #### C BC #### [facility] [address] [place] [address] Dr. Ember Teague EO # 0.1 103/ul Normal 0.0-0.7 The [facility] Comment on above: Performed By: #### C BC #### [facility] [address] [place] [address] Dr. Ember Teague Eosinophils/100 WBC (Bld) 1.9 % Normal 0.9-7.[address] [facility] Comment on above: Performed By: #### C BC #### [facility] [address] [place] [address] Dr. Ember Teague Erythrocyte distribution width (RBC) [Ratio] 15.2 % Critically high 11.0-15.[address] [facility] Comment on above: Performed By: #### C BC #### [facility] [address] [place] [address] Dr. Ember Teague Hematocrit (Bld) [Volume fraction] 26.6 % Critically low 36.0-48.[address] [facility] Comment on above: Performed By: #### C BC #### [facility] [address] [place] [address] Dr. Ember Teague Hemoglobin (Bld) [Mass/Vol] 9.0 g/dL Critically low 12.0-16.[address] [facility] Comment on above: Performed By: #### C BC #### [facility] [address] [place] [address] Dr. Ember Teague IG # 0.02 10e3/ul Normal 0.00-0.[address] [facility] Comment on above: Performed By: #### C BC #### [facility] [address] [place] [address] Dr. Ember Teague IG % 0.3 % Normal 0.0-0.5 The [facility] Comment on above: Performed By: #### C BC #### [facility] [address] [place] [address] Dr. Ember Teague LYMPH # 1.9 103/ul Normal 1.2-3.8 The [facility] Comment on above: Performed By: #### C BC #### [facility] [address] [place] [address] Dr. Ember Teague Lymphocytes/100 WBC (Bld) 32.4 % Normal 20.5-60.[address] [facility] Comment on above: Performed By: #### C BC #### [facility] [address] [place] [address] Dr. Ember Teague MANUAL DIFF REQ NO Normal [facility] Comment on above: Performed By: #### C BC #### [facility] [address] [place] [address] Dr. Ember Teague MCH (RBC) [Entitic mass] 31.1 pg Normal 26.7-34.[address] [facility] Comment on above: Performed By: #### C BC #### [facility] [address] [place] [address] Dr. Ember Teague MCHC (RBC) [Mass/Vol] 33.8 g/dL Normal 29.9-35.2 The [facility] Comment on above: Performed By: #### C BC #### [facility] [address] [place] [address] Dr. Ember Teague MCV (RBC) [Entitic vol] 92.0 fL Normal 81.0-99.[address] [facility] Comment on above: Performed By: #### C BC #### [facility] [address] [place] [address] Dr. Ember Teague MONO # 0.6 103/ul Normal 0.3-0.[address] [facility] Comment on above: Performed By: #### C BC #### [facility] [address] [place] [address] Dr. Ember Teague Monocytes/100 WBC (Bld) 10.0 % Normal 1.7-12.[address] [facility] Comment on above: Performed By: #### C BC #### [facility] [address] [place] [address] Dr. Ember Teague NEUT # 3.2 103/ul Normal 1.4-6.5 The [facility] Comment on above: Performed By: #### C BC #### [facility] [address] [place] [address] Dr. Ember Teague Neutrophils/100 WBC (Bld) 55.1 % Normal 43.0-75.[address] [facility] Comment on above: Performed By: #### C BC #### [facility] [address] [address] [address] Ember Teague Platelet mean volume (Bld) [Entitic vol] 9.4 fL Critically low 9.5-13.[address] [facility] Comment on above: Performed By: #### C BC #### [facility] [address] [address] [address] Ember Teague PLT 196 103/ul Normal 150-[address] [facility] Comment on above: Performed By: #### C BC #### [facility] [address] [address] [address] Ember Teague RBC 2.89 106/ul Critically low 4.20-5.40 [facility] Comment on above: Performed By: #### C BC #### [facility] [address] [place] [address] Dr. Ember Teague WBC 5.8 103/ul Normal 4.0-11.[address] [facility] Comment on above: Performed By: #### C BC #### [facility] [address] [place] [address] Dr. Ember Teague PROF 14(COMP METB)on 022 Albumin [Mass/Vol] 3.7 g/dL Normal 3.4-5.0 [facility] Comment on above: Performed By: #### P THINT #### [facility] [address] [place] [address] Dr. Ember Teague Albumin/Globulin [Mass ratio] 1.0 {ratio} Normal [facility] Comment on above: Performed By: #### P THINT #### [facility] [address] [place] [address] Dr. Ember Teague ALP [Catalytic activity/Vol] 79 U/L Normal 46-116 The [facility] Comment on above: Performed By: #### P THINT #### [facility] [address] [place] [address] Dr. Ember Teague ALT [Catalytic activity/Vol] 24 U/L Normal 14-[address] [facility] Comment on above: Performed By: #### P THINT #### [facility] [address] [place] [address] Dr. Ember Teague Anion gap [Moles/Vol] 12.8 mmol/L Normal [facility] Comment on above: Performed By: #### P THINT #### [facility] [address] [address] [address] Ember Teague AST [Catalytic activity/Vol] 17 U/L Normal 15-[address] [facility] Comment on above: Performed By: #### P THINT #### [facility] [address] [address] [address] Ember Teague Bilirubin [Mass/Vol] 0.5 mg/dL Normal 0.2-1.[address] [facility] Comment on above: Performed By: #### P THINT #### [facility] [address] [address] [address] Ember Teague Calcium [Mass/Vol] 9.4 mg/dL Normal 8.5-10.1 [facility] Comment on above: Performed By: #### P THINT #### [facility] [address] [address] [address] Ember Teague Chloride [Moles/Vol] 101 mmol/L Normal 98-[address] [facility] Comment on above: Performed By: #### P THINT #### [facility] [address] [address] [address] Ember Teague CO2 [Moles/Vol] 24.3 mmol/L Normal 21.0-32.[address] [facility] Comment on above: Performed By: #### P THINT #### [facility] [address] [address] [address] Ember Teague Creatinine [Mass/Vol] 2.84 mg/dL Critically high 0.55-1.[address] [facility] Comment on above: Performed By: #### P THINT #### [facility] [address] [address] [address] Ember Teague EGFR-AF NICARAGUAN 20 mL/min/1.73m2 Critically low >=60 The [facility] Comment on above: Performed By: #### P THINT #### [facility] [address] [address] [address] Ember Teague EGFR-NON AF NICARAGUAN 16 mL/min/1.73m2 Critically low >=[address] [facility] Comment on above: Performed By: #### P THINT #### [facility] [address] [place] [address] Dr. Ember Teague Globulin (S) [Mass/Vol] 3.7 g/dL Normal [facility] Comment on above: Performed By: #### P THINT #### [facility] [address] [address] [address] Ember Teague Glucose [Mass/Vol] 174 mg/dL Critically high 74-106 [facility] Comment on above: Performed By: #### P THINT #### [facility] [address] [place] [address] Dr. Ember Teague Potassium [Moles/Vol] 5.1 mmol/L Normal 3.5-5.[address] [facility] Comment on above: Performed By: #### P THINT #### [facility] [address] [place] [address] Dr. Ember Teague Protein [Mass/Vol] 7.4 g/dL Normal 6.4-8.2 [facility] Comment on above: Performed By: #### P THINT #### [facility] [address] [place] [address] Dr. Ember Teague Sodium [Moles/Vol] 133 mmol/L Critically low 136-145 [facility] Comment on above: Performed By: #### P THINT #### [facility] [address] [place] [address] Dr. Ember Teague Urea nitrogen [Mass/Vol] 68.0 mg/dL Critically high 7.0-18.[address] [facility] Comment on above: Performed By: #### P THINT #### [facility] [address] [place] [address] Dr. Ember Teague Urea nitrogen/Creatinine [Mass ratio] 23.9 mg/mg Normal [facility] Comment on above: Performed By: #### P THINT #### [facility] [address] [place] [address] Dr. Ember Teague TROPONIN, HIGH SENSITIVITYon 09-11-2022 HSTROP 9.1 pg/mL Normal 4.0-51.3 The [facility] Comment on above: Result Comment: CUT- OFF POINTS HAVE BEEN ESTABLISHED BASED ON THE FOURTH UNIVERSAL DEFINITIONS OF MYOCARDIAL INFARCTION. THE UPPER REFERENCE LIMIT (URL) OF TROPONIN, DEFINED THE 99TH PERCENTILE OF cTnI DISTRIBUTION IN A REFERENCE POPULATION, HAS BEEN CONFIRMED THE DECISION THRESHOLD FOR OH DIAGNOSIS. Performed By: #### P THINT #### [facility] [address] [place] [address] Dr. Ember Teague UA RANDOM W/MICROSCOPICon BACTERIA NONE SEEN Normal NONE SEEN [facility] Comment on above: Performed By: #### C VDTBH #### [facility] [address] [place] [address] Dr. Ember Teague Bilirubin Ql (U) Negative Normal NEGATIVE [facility] Comment on above: Performed By: #### C VDTBH #### [facility] [address] [place] [address] Dr. Ember Teague CAST NONE SEEN Normal NONE SEEN [facility] Comment on above: Performed By: #### C VDTBH #### [facility] [address] [place] [address] Dr. Ember Teague Clarity (U) CLEAR Normal CLEAR [facility] Comment on above: Performed By: #### C VDTBH #### [facility] [address] [place] [address] Dr. Ember Teague Color (U) LT. YELLOW Normal YELLOW The [facility] Comment on above: Performed By: #### C VDTBH #### [facility] [address] [place] [address] Dr. Ember Teague Crystals LM Nom (Urine sed) NONE SEEN Normal NONE SEEN [facility] Comment on above: Performed By: #### C VDTBH #### [facility] [address] [place] [address] Dr. Ember Teague Epithelial cells LM Ql (Urine sed) FEW Abnormal NONE SEEN /RARE The [facility] Comment on above: Performed By: #### C VDTBH #### [facility] [address] [place] [address] Dr. Ember Teague Glucose Ql (U) Negative Normal NEGATIVE [facility] Comment on above: Performed By: #### C VDTBH #### [facility] [address] [place] [address] Dr. Ember Teague Hemoglobin Ql (U) Negative Normal NEGATIVE [facility] Comment on above: Performed By: #### C VDTBH #### [facility] [address] [address] [address] Ember Teague Ketones Ql (U) Negative Normal NEGATIVE [facility] Comment on above: Performed By: #### C VDTBH #### [facility] [address] [place] [address] Dr. Ember Teague LEUKOCYTES Negative Normal NEGATIVE [facility] Comment on above: Performed By: #### C VDTBH #### [facility] [address] [place] [address] Dr. Ember Teague MUCOUS NONE SEEN Normal NONE SEEN [facility] Comment on above: Performed By: #### C VDTBH #### [facility] [address] [place] [address] Dr. Ember Teague Nitrite Ql (U) Negative Normal NEGATIVE [facility] Comment on above: Performed By: #### C VDTBH #### [facility] [address] [place] [address] Dr. Ember Teague pH (U) 5.5 [pH] Normal 5-9 The [facility] Comment on above: Performed By: #### C VDTBH #### [facility] [address] [place] [address] Dr. Ember Teague RBC NONE SEEN Abnormal 0-2 The [facility] Comment on above: Performed By: #### C VDTBH #### [facility] [address] [place] [address] Dr. Ember Teague SPEC GRAVITY 1.010 Normal 1.005-<=1.025 [facility] Comment on above: Performed By: #### C VDTBH #### [facility] [address] [place] [address] Dr. Ember Teague UA PROTEIN Negative Normal NEGATIVE/ TRACE [facility] Comment on above: Performed By: #### C VDTBH #### [facility] [address] [place] [address] Dr. Ember Teague Urobilinogen Qn (U) 0.2 {Esau'U}/dL Normal 0.2 - 1. 0 The [facility] Comment on above: Performed By: #### C VDTBH #### [facility] [address] [place] [address] Dr. Ember Teague WBC NONE SEEN Normal NONE SEEN The [facility] Comment on above: Performed By: #### C VDTBH #### [facility] [address] [place] [address] Dr. Ember eTague CBC AUTO DIFFon 08-13-2022 BASO # 0.0 103/ul Normal 0.0-0.[address] [facility] Comment on above: Performed By: #### C BC #### [facility] [address] [place] [address] Dr. Ember Teague Basophils/100 WBC (Bld) 0.3 % Normal 0.2-2.[address] [facility] Comment on above: Performed By: #### C BC #### [facility] [address] [place] [address] Dr. Ember Teague EO # 0.2 103/ul Normal 0.0-0.7 The [facility] Comment on above: Performed By: #### C BC #### [facility] [address] [place] [address] Dr. Ember Teague Eosinophils/100 WBC (Bld) 3.7 % Normal 0.9-7.0 The [facility] Comment on above: Performed By: #### C BC #### [facility] [address] [place] [address] Dr. Ember Teague Erythrocyte distribution width (RBC) [Ratio] 15.0 % Normal 11.0-15.[address] [facility] Comment on above: Performed By: #### C BC #### [facility] [address] [place] [address] Dr. Ember Teague Hematocrit (Bld) [Volume fraction] 27.9 % Critically low 36.0-48.[address] [facility] Comment on above: Performed By: #### C BC #### [facility] [address] [place] [address] Dr. Ember Teague Hemoglobin (Bld) [Mass/Vol] 9.7 g/dL Critically low 12.0-16.[address] [facility] Comment on above: Performed By: #### C BC #### [facility] [address] [place] [address] Dr. Ember Teague IG # 0.01 10e3/ul Normal 0.00-0.[address] [facility] Comment on above: Performed By: #### C BC #### [facility] [address] [place] [address] Dr. Ember Teague IG % 0.2 % Normal 0.0-0.[address] [facility] Comment on above: Performed By: #### C BC #### [facility] [address] [place] [address] Dr. Ember Teague LYMPH # 1.9 103/ul Normal 1.2-3.8 The [facility] Comment on above: Performed By: #### C BC #### [facility] [address] [place] [address] Dr. Ember Teague Lymphocytes/100 WBC (Bld) 32.2 % Normal 20.5-60.0 The [facility] Comment on above: Performed By: #### C BC #### [facility] [address] [place] [address] Dr. Ember Teague MANUAL DIFF REQ NO Normal [facility] Comment on above: Performed By: #### C BC #### [facility] [address] [place] [address] Dr. Ember Teague MCH (RBC) [Entitic mass] 31.4 pg Normal 26.7-34.[address] [facility] Comment on above: Performed By: #### C BC #### [facility] [address] [place] [address] Dr. Ember Teague MCHC (RBC) [Mass/Vol] 34.8 g/dL Normal 29.9-35.[address] [facility] Comment on above: Performed By: #### C BC #### [facility] [address] [place] [address] Dr. Ember Teague MCV (RBC) [Entitic vol] 90.3 fL Normal 81.0-99.[address] [facility] Comment on above: Performed By: #### C BC #### [facility] [address] [place] [address] Dr. Ember Teague MONO # 0.6 103/ul Normal 0.3-0.[address] [facility] Comment on above: Performed By: #### C BC #### [facility] [address] [place] [address] Dr. Ember Teague Monocytes/100 WBC (Bld) 9.8 % Normal 1.7-12.[address] [facility] Comment on above: Performed By: #### C BC #### [facility] [address] [place] [address] Dr. Ember Teague NEUT # 3.2 103/ul Normal 1.4-6.[address] [facility] Comment on above: Performed By: #### C BC #### [facility] [address] [place] [address] Dr. Ember Teague Neutrophils/100 WBC (Bld) 53.8 % Normal 43.0-75.[address] [facility] Comment on above: Performed By: #### C BC #### [facility] [address] [place] [address] Dr. Ember Teague Platelet mean volume (Bld) [Entitic vol] 10.0 fL Normal 9.5-13.5 The [facility] Comment on above: Performed By: #### C BC #### [facility] [address] [place] [address] Dr. Ember Teague PLT 194 103/ul Normal 150-450 The [facility] Comment on above: Performed By: #### C BC #### [facility] [address] [place] [address] Dr. Ember Teague RBC 3.09 106/ul Critically low 4.20-5.40 [facility] Comment on above: Performed By: #### C BC #### [facility] [address] [place] [address] Dr. Ember Teague WBC 6.0 103/ul Normal 4.0-11.[address] [facility] Comment on above: Performed By: #### C BC #### [facility] [address] [place] [address] Dr. Ember Teague PTH INTACTon 06-26-2022 PTH, Intact 39 pg/mL Normal 15-[address] [facility] Comment on above: Performed By: #### P THINT #### [facility] [address] [place] [address] Dr. Ember Teague CBC AUTO DIFFon 06-25-2022 BASO # 0.1 103/ul Normal 0.0-0.[address] [facility] Comment on above: Performed By: #### C VDTBH #### [facility] [address] [place] [address] Dr. Ember Teague Basophils/100 WBC (Bld) 0.6 % Normal 0.2-2.[address] [facility] Comment on above: Performed By: #### C VDTBH #### [facility] [address] [place] [address] Dr. Ember Teague EO # 0.2 103/ul Normal 0.0-0.[address] [facility] Comment on above: Performed By: #### C VDTBH #### [facility] [address] [place] [address] Dr. Ember Teague Eosinophils/100 WBC (Bld) 3.0 % Normal 0.9-7.[address] [facility] Comment on above: Performed By: #### C VDTBH #### [facility] [address] [place] [address] Dr. Ember Teague Erythrocyte distribution width (RBC) [Ratio] 14.2 % Normal 11.0-15.[address] [facility] Comment on above: Performed By: #### C VDTBH #### [facility] [address] [place] [address] Dr. Ember Teague Hematocrit (Bld) [Volume fraction] 30.9 % Critically low 36.0-48.[address] [facility] Comment on above: Performed By: #### C VDTBH #### [facility] [address] [place] [address] Dr. Ember Teague Hemoglobin (Bld) [Mass/Vol] 10.6 g/dL Critically low 12.0-16.[address] [facility] Comment on above: Performed By: #### C VDTBH #### [facility] [address] [place] [address] Dr. Ember Teague IG # 0.04 10e3/ul Critically high 0.00-0.03 [facility] Comment on above: Performed By: #### C VDTBH #### [facility] [address] [place] [address] Dr. Ember Teague IG % 0.5 % Normal 0.0-0.[address] [facility] Comment on above: Performed By: #### C VDTBH #### [facility] [address] [place] [address] Dr. Ember Teague LYMPH # 2.2 103/ul Normal 1.2-3.[address] [facility] Comment on above: Performed By: #### C VDTBH #### [facility] [address] [place] [address] Dr. Ember Teague Lymphocytes/100 WBC (Bld) 27.0 % Normal 20.5-60.[address] [facility] Comment on above: Performed By: #### C VDTBH #### [facility] [address] [place] [address] Dr. Ember Teague MANUAL DIFF REQ NO Normal [facility] Comment on above: Performed By: #### C VDTBH #### [facility] [address] [place] [address] Dr. Ember Teauge MCH (RBC) [Entitic mass] 31.2 pg Normal 26.7-34.[address] [facility] Comment on above: Performed By: #### C VDTBH #### [facility] [address] [place] [address] Dr. Ember Teague MCHC (RBC) [Mass/Vol] 34.3 g/dL Normal 29.9-35.2 The [facility] Comment on above: Performed By: #### C VDTBH #### [facility] [address] [place] [address] Dr. Ember Teague MCV (RBC) [Entitic vol] 90.9 fL Normal 81.0-99.0 The [facility] Comment on above: Performed By: #### C VDTBH #### [facility] [address] [place] [address] Dr. Ember Teague MONO # 0.7 103/ul Normal 0.3-0.8 The [facility] Comment on above: Performed By: #### C VDTBH #### [facility] [address] [place] [address] Dr. Ember Teague Monocytes/100 WBC (Bld) 9.2 % Normal 1.7-12.0 The [facility] Comment on above: Performed By: #### C VDTBH #### [facility] [address] [place] [address] Dr. Ember Teague NEUT # 4.8 103/ul Normal 1.4-6.5 The [facility] Comment on above: Performed By: #### C VDTBH #### [facility] [address] [place] [address] Dr. Ember Teague Neutrophils/100 WBC (Bld) 59.7 % Normal 43.0-75.0 The [facility] Comment on above: Performed By: #### C VDTBH #### [facility] [address] [place] [address] Dr. Ember Teague Platelet mean volume (Bld) [Entitic vol] 9.3 fL Critically low 9.5-13.5 The [facility] Comment on above: Performed By: #### C VDTBH #### [facility] [address] [place] [address] Dr. Ember Teague PLT 227 103/ul Normal 150-450 The [facility] Comment on above: Performed By: #### C VDTBH #### [facility] [address] [address] [address] Ember Teague RBC 3.40 106/ul Critically low 4.20-5.40 [facility] Comment on above: Performed By: #### C VDTBH #### [facility] [address] [address] [address] Ember Teague WBC 8.0 103/ul Normal 4.0-11.[address] [facility] Comment on above: Performed By: #### C VDTB #### [facility] [address] [address] [address] Ember Teague MRI LSPINE WO CONon [...] by: YANET Spencer: 2022-06-25 08:45 Normal The [facility] RENAL FUNCTION PANELon 06-25 Albumin [Mass/Vol] 3.9 g/dL Normal 3.4-5.0 [facility] Comment on above: Performed By: #### P THINT #### [facility] [address] [address] [address] Ember Teague Calcium [Mass/Vol] 9.5 mg/dL Normal 8.5-10.1 [facility] Comment on above: Performed By: #### P THINT #### [facility] [address] [address] [address] Ember Teague Chloride [Moles/Vol] 102 mmol/L Normal 98-[address] [facility] Comment on above: Performed By: #### P THINT #### [facility] [address] [address] [address] Ember Teague CO2 [Moles/Vol] 23.8 mmol/L Normal 21.0-32.0 [facility] Comment on above: Performed By: #### P THINT #### [facility] [address] [address] [address] Ember Teague Creatinine [Mass/Vol] 1.75 mg/dL Critically high 0.55-1.[address] [facility] Comment on above: Performed By: #### P THINT #### [facility] [address] [address] [address] Ember Teague EGFR-AF NICARAGUAN 34 mL/min/1.73m2 Critically low >=[address] [facility] Comment on above: Performed By: #### P THINT #### [facility] [address] [address] [address] Ember Teague EGFR-NON AF NICARAGUAN 28 mL/min/1.73m2 Critically low >=[address] [facility] Comment on above: Performed By: #### P THINT #### [facility] [address] [address] [address] Ember Teague Glucose [Mass/Vol] 199 mg/dL Critically high 74-106 [facility] Comment on above: Performed By: #### P THINT #### [facility] [address] [address] [address] Ember Teague Phosphate [Mass/Vol] 4.3 mg/dL Normal 2.6-4.[address] [facility] Comment on above: Performed By: #### P THINT #### [facility] [address] [place] [address] Dr. Ember Teague Potassium [Moles/Vol] 4.9 mmol/L Normal 3.5-5.[address] [facility] Comment on above: Performed By: #### P THINT #### [facility] [address] [place] [address] Dr. Ember Teague Sodium [Moles/Vol] 135 mmol/L Critically low 136-145 [facility] Comment on above: Performed By: #### P THINT #### [facility] [address] [place] [address] Dr. Ember Teague Urea nitrogen [Mass/Vol] 34.0 mg/dL Critically high 7.0-18.[address] [facility] Comment on above: Performed By: #### P THINT #### [facility] [address] [place] [address] Dr. Ember Teague VITAMIN D 25 OHon 06-25-2022 VIT D 25-OH 40.6 ng/mL Normal [facility] Comment on above: Performed By: #### P THINT #### [facility] [address] [place] [address] Dr. Ember Teague VIT D RANGES SEE BELOW Normal [facility] Comment on above: Result Comment: <20 ng/mL Vit D deficient 20 - <30 ng/mL Vit D insufficient 30 - 100 ng/mL Vit D sufficient >100 ng/mL Potential Toxicity Performed By: #### P THINT #### [facility] [address] [place] [address] Dr. Ember Teague [facility]07 SARS-CoV-2 (COVID-19) RNA ALEXX+probe Ql (Unsp spec) Not detected Normal NOT DETECTED [facility] Comment on above: Result Comment: This test is not yet approved or cleared by the [place] FDA. When there are no FDA-approved or cleared tests available, and other criteria are met, FDA can make tests available under an emergency access mechanism called an Emergency Use Authorization (EUA). The EUA for this test is supported by the Medical Technologist Hematology of Health and Human Service's (HHS's) declaration [...] consistent with SARS-CoV-2. Performed By: #### C [facility] #### [facility] [address] [place] [address] LSPINE WO CONon [...] YANET HUERTA Date: 2022-06-01 18:02 Normal The [facility] XR LSPINE MIN 4 VIEWSon [...] by: YANET HUERTA Date: 2022-05-21 15:[address] [facility] PTH INTACTon 05-03-2022 PTH, Intact 60 pg/mL Normal 15-[address] [facility] Comment on above: Performed By: #### C VDTB #### [facility] [address] [place] [address] Dr. Ember Teague VIT D 25-OH LABCORPon 2021 Vitamin D, 25-Hydroxy 26.1 ng/mL Critically low 30.0-100.[address] [facility] Comment on above: Result Comment: Sara min D deficiency has been defined by the [place] of Medicine and an Endocrine Society practice guideline as a level of serum 25-OH vitamin D less than 20 ng/mL (1,2). The Endocrine Society went on to further define vitamin D insufficiency as a level between 21 and 29 ng/mL (2). 1. IOM ([place] of Medicine). 2010. Dietary reference intakes for calcium and D. [place]: The National Academies Press. 2. Sherice MF, Wendy WILSON, Huan ZHONG, et al. Evaluation, treatment, and prevention of vitamin D deficiency: an Endocrine Society clinical practice guideline. JCEM. 2010; 96(7):1911-30. Performed By: #### R ENAL #### [facility] [address] [place] [address] Dr. Ember Teague FERRITINon 05-02-2022 Ferritin [Mass/Vol] 590.0 ng/mL Critically high 8.0-252.[address] [facility] Comment on above: Performed By: #### R ENAL #### [facility] [address] [place] [address] Dr. Ember Teague HEMOGRAM AND PLATELon 2021 Hematocrit (Bld) [Volume fraction] 28.4 % Critically low 36.0-48.[address] [facility] Comment on above: Performed By: #### C VDTBH #### [facility] [address] [place] [address] Dr. Ember Teague Hemoglobin (Bld) [Mass/Vol] 9.6 g/dL Critically low 12.0-16.[address] [facility] Comment on above: Performed By: #### C VDTBH #### [facility] [address] [place] [address] Dr. Ember Teague MCH (RBC) [Entitic mass] 31.0 pg Normal 26.7-34.[address] [facility] Comment on above: Performed By: #### C VDTBH #### [facility] [address] [place] [address] Dr. Ember Teague MCHC (RBC) [Mass/Vol] 33.8 g/dL Normal 29.9-35.2 The [facility] Comment on above: Performed By: #### C VDTBH #### [facility] [address] [place] [address] Dr. Ember Teague MCV (RBC) [Entitic vol] 91.6 fL Normal 81.0-99.[address] [facility] Comment on above: Performed By: #### C VDTBH #### [facility] [address] [place] [address] Dr. Ember Teague PLT 189 103/ul Normal 150-450 The [facility] Comment on above: Performed By: #### C VDTBH #### [facility] [address] [address] [address] Ember Teague RBC 3.10 106/ul Critically low 4.20-5.40 [facility] Comment on above: Performed By: #### C VDTBH #### [facility] [address] [address] [address] Ember Teague WBC 6.2 103/ul Normal 4.0-11.[address] [facility] Comment on above: Performed By: #### C VDTBH #### [facility] [address] [address] [address] Ember Teague IRON AND TIBCon 05-02-2022 % SATURATION 34.3 % Normal [facility] Comment on above: Performed By: #### R ENAL #### [facility] [address] [place] [address] Dr. Ember Teague Iron [Mass/Vol] 69.0 ug/dL Normal 50.0-170.0 [facility] Comment on above: Performed By: #### R ENAL #### [facility] [address] [address] [address] Ember Teague TIBC DIRECT 201.0 ug/dL Critically low 250.0-450.0 [facility] Comment on above: Performed By: #### R ENAL #### [facility] [address] [address] [address] Ember Teague MAGNESIUMon 05-02-2022 Magnesium [Mass/Vol] 1.7 mg/dL Critically low 1.8-2.[address] [facility] Comment on above: Performed By: #### C VDTBH #### [facility] [address] [address] [address] Ember Teague RENAL FUNCTION PANELon 05-02 Albumin [Mass/Vol] 3.6 g/dL Normal 3.4-5.0 [facility] Comment on above: Performed By: #### C VDTBH #### [facility] [address] [place] [address] Dr. Ember Teague Calcium [Mass/Vol] 9.2 mg/dL Normal 8.5-10.1 [facility] Comment on above: Performed By: #### C VDTBH #### [facility] [address] [address] [address] Ember Teague Chloride [Moles/Vol] 107 mmol/L Normal 98-[address] [facility] Comment on above: Performed By: #### C VDTBH #### [facility] [address] [address] [address] Ember Teague CO2 [Moles/Vol] 21.2 mmol/L Normal 21.0-32.0 [facility] Comment on above: Performed By: #### C VDTBH #### [facility] [address] [place] [address] Dr. Ember Teague Creatinine [Mass/Vol] 1.75 mg/dL Critically high 0.55-1.[address] [facility] Comment on above: Performed By: #### C VDTBH #### [facility] [address] [place] [address] Dr. Ember Teague EGFR-AF NICARAGUAN 34 mL/min/1.73m2 Critically low >=[address] [facility] Comment on above: Performed By: #### C VDTBH #### [facility] [address] [place] [address] Dr. Ember Teague EGFR-NON AF NICARAGUAN 28 mL/min/1.73m2 Critically low >=[address] [facility] Comment on above: Performed By: #### C VDTBH #### [facility] [address] [place] [address] Dr. Ember Teague Glucose [Mass/Vol] 193 mg/dL Critically high 74-106 [facility] Comment on above: Performed By: #### C VDTBH #### [facility] [address] [address] [address] Ember Teague Phosphate [Mass/Vol] 4.2 mg/dL Normal 2.6-4.[address] [facility] Comment on above: Performed By: #### C VDTBH #### [facility] [address] [place] [address] Dr. Ember Teague Potassium [Moles/Vol] 5.1 mmol/L Normal 3.5-5.[address] [facility] Comment on above: Performed By: #### C VDTBH #### [facility] [address] [place] [address] Dr. Ember Teague Sodium [Moles/Vol] 139 mmol/L Normal 136-145 [facility] Comment on above: Performed By: #### C VDTBH #### [facility] [address] [place] [address] Dr. Ember Teague Urea nitrogen [Mass/Vol] 34.0 mg/dL Critically high 7.0-18.[address] [facility] Comment on above: Performed By: #### C VDTBH #### [facility] [address] [place] [address] Dr. Ember Teague UA RANDOM W/MICROSCOPICon BACTERIA SMALL Abnormal NONE SEEN [facility] Comment on above: Performed By: #### C VDTBH #### [facility] [address] [place] [address] Dr. Ember Teague Bilirubin Ql (U) Negative Normal NEGATIVE [facility] Comment on above: Performed By: #### C VDTBH #### [facility] [address] [place] [address] Dr. Ember Teague CAST NONE SEEN Normal NONE SEEN [facility] Comment on above: Performed By: #### C VDTBH #### [facility] [address] [place] [address] Dr. Ember Teague Clarity (U) CLEAR Normal CLEAR The [facility] Comment on above: Performed By: #### C VDTBH #### [facility] [address] [place] [address] Dr. Ember Teague Color (U) LT. YELLOW Normal YELLOW [facility] Comment on above: Performed By: #### C VDTBH #### [facility] [address] [place] [address] Dr. Ember Teague Crystals LM Nom (Urine sed) NONE SEEN Normal NONE SEEN [facility] Comment on above: Performed By: #### C VDTBH #### [facility] [address] [address] [address] Ember Teague Epithelial cells LM Ql (Urine sed) MODERATE Abnormal NONE SEEN /RARE The [facility] Comment on above: Performed By: #### C VDTBH #### [facility] [address] [place] [address] Dr. Ember Teague Glucose Ql (U) Negative Normal NEGATIVE [facility] Comment on above: Performed By: #### C VDTBH #### [facility] [address] [address] [address] Ember Teague Hemoglobin Ql (U) Negative Normal NEGATIVE [facility] Comment on above: Performed By: #### C VDTBH #### [facility] [address] [place] [address] Dr. Ember Teague Ketones Ql (U) Negative Normal NEGATIVE [facility] Comment on above: Performed By: #### C VDTBH #### [facility] [address] [place] [address] Dr. Ember Teague LEUKOCYTES TRACE Abnormal NEGATIVE [facility] Comment on above: Performed By: #### C VDTBH #### [facility] [address] [place] [address] Dr. Ember Teague MUCOUS NONE SEEN Normal NONE SEEN [facility] Comment on above: Performed By: #### C VDTBH #### [facility] [address] [place] [address] Dr. Ember Teague Nitrite Ql (U) Negative Normal NEGATIVE [facility] Comment on above: Performed By: #### C VDTBH #### [facility] [address] [place] [address] Dr. Ember Teague pH (U) 5.0 [pH] Normal 5-9 The [facility] Comment on above: Performed By: #### C VDTBH #### [facility] [address] [place] [address] Dr. Ember Teague RBC NONE SEEN Abnormal 0-2 The [facility] Comment on above: Performed By: #### C VDTBH #### [facility] [address] [place] [address] Dr. Ember Teague SPEC GRAVITY 1.015 Normal 1.005-<=1.025 [facility] Comment on above: Performed By: #### C VDTBH #### [facility] [address] [place] [address] Dr. Ember Teague UA PROTEIN TRACE Normal NEGATIVE/ TRACE [facility] Comment on above: Performed By: #### C VDTBH #### [facility] [address] [place] [address] Dr. Ember Teague Urobilinogen Qn (U) 0.2 {Esau'U}/dL Normal 0.2 - 1. [address] [facility] Comment on above: Performed By: #### C VDTBH #### [facility] [address] [place] [address] Dr. Ember Teague WBC 0-2 Abnormal NONE SEEN The [facility] Comment on above: Performed By: #### C VDTBH #### [facility] [address] [place] [address] Dr. Ember Teague URIC ACID SERUMon 05-02-2022 Urate [Mass/Vol] 4.4 mg/dL Normal 2.6-6.0 [facility] Comment on above: Performed By: #### C BC #### [facility] [address] [place] [address] Dr. Ember Teague URINE T PROTEIN CREAT RATIOo n 05-02-2022 Protein (U) [Mass/Vol] 33.7 mg/dL Critically high <=12.[address] [facility] Comment on above: Performed By: #### C VDTBH #### [facility] [address] [place] [address] Dr. Ember Teague UR PROT CREAT RAT 0.[address] [facility] Comment on above: Performed By: #### C VDTBH #### [facility] [address] [place] [address] Dr. Ember Teague URINE CREAT 48.93 mg/dL Normal 20.00-300.00 [facility] Comment on above: Performed By: #### C VDTBH #### [facility] [address] [address] [address] Ember Teague Vital Signs Date Time Vital Sign Value Performing Clinician Facility 11-18-2023 10:00-0500 Body height 168.91 cm Ron Doreen Other [facility] Other 11-18-2023 10:00-0500 Body mass index (BMI) [Ratio] 29.85 kg/m2 Ron Doreen Other [facility] Other 11-18-2023 10:00-0500 Body temperature 97.3 [degF] Ron Doreen Other [facility] Other 11-18-2023 10:00-0500 Body weight 85.19 kg Ron Doreen Other [facility] Other 11-18-2023 10:00-0500 Diastolic blood pressure 79 mm[Hg] Ron Doreen Other [facility] Other 11-18-2023 10:00-0500 Respiratory rate 18 /min Ron Doreen Other [facility] Other 11-18-2023 10:00-0500 SaO2% (BldA) [Mass fraction] 98 % Ron Doreen Other [facility] Other 11-18-2023 10:00-0500 Systolic blood pressure 149 mm[Hg] Ron Doreen Other [facility] Other 11-04-2023 11:00-0500 Body height 168.91 cm Ron Doreen Other [facility] Other 11-04-2023 11:00-0500 Body mass index (BMI) [Ratio] 30.17 kg/m2 Ron Doreen Other [facility] Other 11-04-2023 11:00-0500 Body temperature 97.6 [degF] Ron Doreen Other [facility] Other 11-04-2023 11:00-0500 Body weight 86.09 kg Ron Doreen Other [facility] Other 11-04-2023 11:00-0500 Diastolic blood pressure 76 mm[Hg] Ron Doreen Other [facility] Other 11-04-2023 11:00-0500 Respiratory rate 18 /min Ron Doreen Other [facility] Other 11-04-2023 11:00-0500 SaO2% (BldA) [Mass fraction] 98 % Ron Doreen Other [facility] Other 11-04-2023 11:00-0500 Systolic blood pressure 153 mm[Hg] Ron Doreen Other [facility] Other 10-15-2023 13:00-0500 Body height 168.91 cm Ron Doreen Other [facility] Other 10-15-2023 13:00-0500 Body mass index (BMI) [Ratio] 29.82 kg/m2 Ron Doreen Other [facility] Other 10-15-2023 13:00-0500 Body temperature 97.5 [degF] Ron Doreen Other [facility] Other 10-15-2023 13:00-0500 Body weight 85.1 kg Ron Doreen Other [facility] Other 10-15-2023 13:00-0500 Diastolic blood pressure 68 mm[Hg] Ron Doreen Other [facility] Other 10-15-2023 13:00-0500 Respiratory rate 18 /min Ron Doreen Other [facility] Other 10-15-2023 13:00-0500 SaO2% (BldA) [Mass fraction] 98 % Ron Doreen Other [facility] Other 10-15-2023 13:00-0500 Systolic blood pressure 113 mm[Hg] Ron Doreen Other [employer] Other 08-27-2023 09:40-0500 Body height 168.91 cm Mary Anne [employer] Other [employer] Other 08-27-2023 09:40-0500 Body mass index (BMI) [Ratio] 30.2 kg/m2 Mary Anne [employer] Other [employer] Other 08-27-2023 09:40-0500 Body temperature 96.7 [degF] [employer] Other [employer] Other 08-27-2023 09:40-0500 Body weight 86.18 kg [facility]scarduc [employer] Other [employer] Other 08-27-2023 09:40-0500 Diastolic blood pressure 72 mm[Hg] Mary Anne Ackerman Other [employer] Other 08-27-2023 09:40-0500 Respiratory rate 18 /min Mary Anne Ackerman Other [employer] Other 08-27-2023 09:40-0500 SaO2% (BldA) [Mass fraction] 98 % Mary Anne Ackerman Other [employer] Other 08-27-2023 09:40-0500 Systolic blood pressure 153 mm[Hg] Mary Anne Ackerman Other [employer] Other 08-15-2023 10:20-0500 Body height 168.91 cm Ron Doreen Other [employer] Other 08-15-2023 10:20-0500 Body mass index (BMI) [Ratio] 30.2 kg/m2 Ron Doreen Other [employer] Other 08-15-2023 10:20-0500 Body temperature 97.1 [degF] Ron Doreen Other [employer] Other 08-15-2023 10:20-0500 Body weight 86.18 kg Ron Doreen Other [employer] Other 08-15-2023 10:20-0500 Diastolic blood pressure 79 mm[Hg] Ron Doreen Other [employer] Other 08-15-2023 10:20-0500 Respiratory rate 18 /min Ron Doreen Other [employer] Other 08-15-2023 10:20-0500 SaO2% (BldA) [Mass fraction] 98 % Ron Doreen Other [employer] Other 08-15-2023 10:20-0500 Systolic blood pressure 164 mm[Hg] Ron Doreen Other [employer] Other 08-13-2023 15:40-0500 Body height 168.91 cm Ron Doreen Other [employer] Other 08-13-2023 15:40-0500 Body mass index (BMI) [Ratio] 30.24 kg/m2 Ron Doreen Other [employer] Other 08-13-2023 15:40-0500 Body temperature 97.2 [degF] Ron Doreen Other [employer] Other 08-13-2023 15:40-0500 Body weight 86.27 kg Ron Doreen Other [employer] Other 08-13-2023 15:40-0500 Diastolic blood pressure 79 mm[Hg] Ron Doreen Other [employer] Other 08-13-2023 15:40-0500 Respiratory rate 18 /min Ron Doreen Other [employer] Other 08-13-2023 15:40-0500 SaO2% (BldA) [Mass fraction] 98 % Ron Doreen Other [employer] Other 08-13-2023 15:40-0500 Systolic blood pressure 186 mm[Hg] Ron Doreen Other [employer] Other 08-01-2023 13:00-0400 Body height 168.91 cm Ron Doreen Other [employer] Other 08-01-2023 13:00-0400 Body mass index (BMI) [Ratio] 30.55 kg/m2 Ron Doreen Other [employer] Other 08-01-2023 13:00-0400 Body temperature 97.8 [degF] Ron Doreen Other [employer] Other 08-01-2023 13:00-0400 Body weight 87.18 kg Ron Doreen Other [employer] Other 08-01-2023 13:00-0400 Diastolic blood pressure 72 mm[Hg] Ron Doreen Other [employer] Other 08-01-2023 13:00-0400 Respiratory rate 18 /min Ron Doreen Other [employer] Other 08-01-2023 13:00-0400 SaO2% (BldA) [Mass fraction] 98 % Ron Doreen Other [employer] Other 08-01-2023 13:00-0400 Systolic blood pressure 160 mm[Hg] Ron Doreen Other [employer] Other 06-24-2023 11:40-0400 Body height 168.91 cm Ron Doreen Other [employer] Other 06-24-2023 11:40-0400 Body mass index (BMI) [Ratio] 29.89 kg/m2 Ron Doreen Other [employer] Other 06-24-2023 11:40-0400 Body temperature 97.3 [degF] Ron Doreen Other [employer] Other 06-24-2023 11:40-0400 Body weight 85.28 kg Ron Doreen Other [employer] Other 06-24-2023 11:40-0400 Diastolic blood pressure 75 mm[Hg] Ron Doreen Other [employer] Other 06-24-2023 11:40-0400 Respiratory rate 18 /min Ron Doreen Other [employer] Other 06-24-2023 11:40-0400 SaO2% (BldA) [Mass fraction] 99 % Ron Doreen Other [employer] Other 06-24-2023 11:40-0400 Systolic blood pressure 129 mm[Hg] Ron Doreen Other [employer] Other 06-06-2023 15:20-0400 Body height 168.91 cm Ron Doreen Other [employer] Other 06-06-2023 15:20-0400 Body mass index (BMI) [Ratio] 29.92 kg/m2 Ron Doreen Other [employer] Other 06-06-2023 15:20-0400 Body temperature 96.5 [degF] Ron Doreen Other [employer] Other 06-06-2023 15:20-0400 Body weight 85.37 kg Ron Doreen Other [employer] Other 06-06-2023 15:20-0400 Diastolic blood pressure 49 mm[Hg] Ron Doreen Other [employer] Other 06-06-2023 15:20-0400 Respiratory rate 18 /min Ron Doreen Other [employer] Other 06-06-2023 15:20-0400 SaO2% (BldA) [Mass fraction] 99 % Ron Doreen Other [employer] Other 06-06-2023 15:20-0400 Systolic blood pressure 128 mm[Hg] Ron Doreen Other [employer] Other 04-30-2023 11:40-0400 Body height 168.91 cm Ron Doreen Other [employer] Other 04-30-2023 11:40-0400 Body mass index (BMI) [Ratio] 30.52 kg/m2 Ron Doreen Other [employer] Other 04-30-2023 11:40-0400 Body temperature 96.9 [degF] Ron Doreen Other [employer] Other 04-30-2023 11:40-0400 Body weight 87.09 kg Ron Doreen Other [employer] Other 04-30-2023 11:40-0400 Diastolic blood pressure 80 mm[Hg] Ron Doreen Other [employer] Other 04-30-2023 11:40-0400 Respiratory rate 18 /min Ron Doreen Other [employer] Other 04-30-2023 11:40-0400 SaO2% (BldA) [Mass fraction] 98 % Ron Doreen Other [employer] Other 04-30-2023 11:40-0400 Systolic blood pressure 150 mm[Hg] Ron Doreen Other [employer] Other 04-06-2023 09:00-0400 Body height 168.91 cm Ron Doreen Other [employer] Other 04-06-2023 09:00-0400 Body mass index (BMI) [Ratio] 30.36 kg/m2 Ron Doreen Other [employer] Other 04-06-2023 09:00-0400 Body weight 86.64 kg Ron Doreen Other [employer] Other 04-06-2023 09:00-0400 Diastolic blood pressure 54 mm[Hg] Ron Doreen Other [employer] Other 04-06-2023 09:00-0400 Respiratory rate 18 /min Ron Doreen Other [employer] Other 04-06-2023 09:00-0400 SaO2% (BldA) [Mass fraction] 98 % Ron Doreen Other [employer] Other 04-06-2023 09:00-0400 Systolic blood pressure 144 mm[Hg] Ron Doreen Other [employer] Other 04-02-2023 14:40-0400 Body height 168.91 cm Ron Doreen Other [employer] Other 04-02-2023 14:40-0400 Body mass index (BMI) [Ratio] 30.55 kg/m2 Ron Doreen Other [employer] Other 04-02-2023 14:40-0400 Body temperature 97 [degF] Ron Doreen Other [employer] Other 04-02-2023 14:40-0400 Body weight 87.18 kg Ron Doreen Other [employer] Other 04-02-2023 14:40-0400 Diastolic blood pressure 76 mm[Hg] Ron Doreen Other [employer] Other 04-02-2023 14:40-0400 Respiratory rate 18 /min Ron Doreen Other [employer] Other 04-02-2023 14:40-0400 SaO2% (BldA) [Mass fraction] 98 % Ron Doreen Other [employer] Other 04-02-2023 14:40-0400 Systolic blood pressure 183 mm[Hg] Ron Doreen Other [employer] Other 03-07-2023 09:20-0400 Body height 168.91 cm Ron Doreen Other [employer] Other 03-07-2023 09:20-0400 Body mass index (BMI) [Ratio] 30.52 kg/m2 Ron Doreen Other [employer] Other 03-07-2023 09:20-0400 Body temperature 97.1 [degF] Ron Doreen Other [employer] Other 03-07-2023 09:20-0400 Body weight 87.09 kg Ron Doreen Other [employer] Other 03-07-2023 09:20-0400 Diastolic blood pressure 72 mm[Hg] Ron Doreen Other [employer] Other 03-07-2023 09:20-0400 Respiratory rate 18 /min Ron Doreen Other [employer] Other 03-07-2023 09:20-0400 SaO2% (BldA) [Mass fraction] 97 % Ron Doreen Other [employer] Other 03-07-2023 09:20-0400 Systolic blood pressure 130 mm[Hg] Ron Doreen Other [employer] Other 12-20-2022 13:20-0400 Body height 168.91 cm Ron Doreen Other [employer] Other 12-20-2022 13:20-0400 Body mass index (BMI) [Ratio] 30.68 kg/m2 Ron Doreen Other [employer] Other 12-20-2022 13:20-0400 Body temperature 97.1 [degF] Ron Doreen Other [employer] Other 12-20-2022 13:20-0400 Body weight 87.54 kg Ron Doreen Other [employer] Other 12-20-2022 13:20-0400 Diastolic blood pressure 72 mm[Hg] Ron Doreen Other [employer] Other 12-20-2022 13:20-0400 Respiratory rate 18 /min Ron Doreen Other [employer] Other 12-20-2022 13:20-0400 SaO2% (BldA) [Mass fraction] 99 % Ron Doreen Other [employer] Other 12-20-2022 13:20-0400 Systolic blood pressure 139 mm[Hg] Ron Doreen Other [employer] Other 11-05-2022 14:00-0500 Body height 168.91 cm Ron Doreen Other [employer] Other 11-05-2022 14:00-0500 Body mass index (BMI) [Ratio] 30.59 kg/m2 Ron Doreen Other [employer] Other 11-05-2022 14:00-0500 Body temperature 96.8 [degF] Ron Doreen Other [employer] Other 11-05-2022 14:00-0500 Body weight 87.27 kg Ron Doreen Other [employer] Other 11-05-2022 14:00-0500 Diastolic blood pressure 72 mm[Hg] Ron Doreen Other [employer] Other 11-05-2022 14:00-0500 Respiratory rate 18 /min Ron Doreen Other [employer] Other 11-05-2022 14:00-0500 SaO2% (BldA) [Mass fraction] 98 % Ron Doreen Other [employer] Other 11-05-2022 14:00-0500 Systolic blood pressure 157 mm[Hg] Ron Doreen Other [employer] Other 09-27-2022 16:00-0500 Body height 168.91 cm Jana Monson Other [employer] Other 09-27-2022 16:00-0500 Body mass index (BMI) [Ratio] 30.55 kg/m2 Jana Monson Other [employer] Other 09-27-2022 16:00-0500 Body temperature 96.8 [degF] Jana Monson Other [employer] Other 09-27-2022 16:00-0500 Body weight 87.18 kg Jana Monson Other [employer] Other 09-27-2022 16:00-0500 Diastolic blood pressure 73 mm[Hg] Jana Monson Other [employer] Other 09-27-2022 16:00-0500 Respiratory rate 18 /min Jana Monson Other [employer] Other 09-27-2022 16:00-0500 SaO2% (BldA) [Mass fraction] 98 % Jana Monson Other [employer] Other 09-27-2022 16:00-0500 Systolic blood pressure 159 mm[Hg] Jana Monson Other [employer] Other 08-22-2022 12:00-0500 Body height 168.91 cm Ron Doreen Other [employer] Other 08-22-2022 12:00-0500 Body mass index (BMI) [Ratio] 30.65 kg/m2 Ron Doreen Other [employer] Other 08-22-2022 12:00-0500 Body temperature 96.9 [degF] Ron Doreen Other [employer] Other 08-22-2022 12:00-0500 Body weight 87.45 kg Ron Doreen Other [employer] Other 08-22-2022 12:00-0500 Diastolic blood pressure 75 mm[Hg] Ron Doreen Other [employer] Other 08-22-2022 12:00-0500 Respiratory rate 18 /min Ron Doreen Other [employer] Other 08-22-2022 12:00-0500 SaO2% (BldA) [Mass fraction] 96 % Ron Doreen Other [employer] Other 08-22-2022 12:00-0500 Systolic blood pressure 121 mm[Hg] Ron Doreen Other [employer] Other 05-08-2022 10:20-0400 Body height 168.91 cm Ron Doreen Other [employer] Other 05-08-2022 10:20-0400 Body mass index (BMI) [Ratio] 31.54 kg/m2 Ron Doreen Other [employer] Other 05-08-2022 10:20-0400 Body temperature 97.6 [degF] Ron Doreen Other [employer] Other 05-08-2022 10:20-0400 Body weight 89.99 kg Ron Doreen Other [employer] Other 05-08-2022 10:20-0400 Diastolic blood pressure 68 mm[Hg] Ron Doreen Other [employer] Other 05-08-2022 10:20-0400 Respiratory rate 18 /min Ron Doreen Other [employer] Other 05-08-2022 10:20-0400 SaO2% (BldA) [Mass fraction] 98 % Ron Doreen Other [employer] Other 05-08-2022 10:20-0400 Systolic blood pressure 131 mm[Hg] Ron Doreen Other [employer] Other 01-18-2022 10:20-0400 Body height 168.91 cm Ron Doreen Other [employer] Other 01-18-2022 10:20-0400 Body mass index (BMI) [Ratio] 31 kg/m2 Ron Doreen Other [employer] Other 01-18-2022 10:20-0400 Body temperature 96.4 [degF] Ron Doreen Other [employer] Other 01-18-2022 10:20-0400 Body weight 88.45 kg Ron Doreen Other [employer] Other 01-18-2022 10:20-0400 Diastolic blood pressure 74 mm[Hg] Ron Doreen Other [employer] Other 01-18-2022 10:20-0400 Respiratory rate 18 /min Ron Doreen Other [employer] Other 01-18-2022 10:20-0400 SaO2% (BldA) [Mass fraction] 97 % Ron Doreen Other [employer] Other 01-18-2022 10:20-0400 Systolic blood pressure 170 mm[Hg] Ron Doreen Other [employer] Other Encounters Encounter Date Encounter Type Care Provider Facility Start: 01-17-2024 End: 01-17-2024 ambulatory THUAN DELVALLE [facility] Start: 01-16-2024 End: 01-16-2024 ambulatory GA CRESPO Not Available Start: 12-21-2023 Refill Luis dominique PA-C Work Phone: [facility] Comment on above: Med Refill Start: 11-28-2023 End: 11-28-2023 ambulatory GREG TINEO Not Available Start: 11-18-2023 End: 11-18-2023 ambulatory Ron Doreen Other [employer] Other Start: 11-18-2023 Office outpatient visit 15 minutes Ron Doreen [facility] Start: 11-05-2023 End: 11-05-2023 ambulatory GA Josh CRESPO Not Available Start: 11-04-2023 (INJECTION) INJECTION Ron Doreen [facility] Start: 11-04-2023 End: 11-04-2023 ambulatory Ron Doreen Other [employer] Other Start: 10-22-2023 End: 10-22-2023 ambulatory GA H CRESPO Not Available Start: 10-15-2023 End: 10-15-2023 ambulatory Ron Doreen Other [employer] Other Start: 10-15-2023 Office outpatient visit 15 minutes Ron Doreen [facility] Start: 10-08-2023 End: 10-08-2023 ambulatory Aziz Bakhous Other [employer] Other Start: 10-08-2023 Telephone encounter Aziz Bakhous [facility] Start: 09-15-2023 End: 09-15-2023 ambulatory Ron Doreen Other [facility] Other Start: 09-15-2023 Telephone encounter Ron Doreen [facility] Start: 09-09-2023 End: 09-09-2023 ambulatory Ron Doreen Other [facility] Other Start: 09-09-2023 Telephone encounter Ron Doreen [facility] Start: 08-27-2023 (INJECTION) INJECTION Aziz Bakhous [facility] Start: 08-27-2023 End: 08-27-2023 ambulatory Aziz Bakhous Other [facility] Other Start: 08-15-2023 (INJECTION) INJECTION Ron Doreen [facility] Start: 08-15-2023 End: 08-15-2023 ambulatory Ron Doreen Other [facility] Other Start: 08-13-2023 (INJECTION) INJECTION Ron Doreen [facility] Start: 08-13-2023 End: 08-13-2023 ambulatory Ron Doreen Other [facility] Other Start: 08-01-2023 End: 08-01-2023 ambulatory Ron Doreen Other [facility] Other Start: 08-01-2023 Office outpatient visit 15 minutes Ron Doreen [facility] Start: 06-24-2023 End: 06-24-2023 ambulatory Ron Doreen Other [facility] Other Start: 06-24-2023 Office outpatient visit 10 minutes Ron Doreen [facility] Start: 06-06-2023 End: 06-06-2023 ambulatory Ron Doreen Other [facility] Other Start: 06-06-2023 Office outpatient visit 15 minutes Ron Doreen [facility]iel Start: 04-30-2023 End: 04-30-2023 ambulatory Ron Doreen Other [facility] Other Start: 04-30-2023 Office outpatient visit 15 minutes Ron Doreen [facility] Start: 04-06-2023 (INJECTION) INJECTION Ron Doreen [facility] Start: 04-06-2023 End: 04-06-2023 ambulatory Ron Doreen Other [facility] Other Start: 04-06-2023 Telephone encounter Ron Doreen [facility] Start: 04-02-2023 End: 04-02-2023 ambulatory Ron Doreen Other [facility] Other Start: 04-02-2023 Office outpatient visit 15 minutes Ron Doreen [facility] Start: 04-02-2023 Telephone encounter Ron Doreen [facility] Start: 03-07-2023 End: 03-07-2023 ambulatory Ron Doreen Other [facility] Other Start: 03-07-2023 Office outpatient visit 15 minutes Ron Doreen [facility] Start: 01-22-2023 End: 01-23-2023 ambulatory RON DOREEN Facility:[facility] Start: 12-20-2022 End: 12-20-2022 ambulatory Ron Doreen Other [facility] Other Start: 12-20-2022 Office outpatient visit 15 minutes Ron Doreen [facility] Start: 12-17-2022 End: 12-18-[address] DHRUV RUBI . Facility:[facility] Start: 12-10-2022 End: 12-11-2022 ambulatory RON DOREEN Facility:[facility] Start: 11-20-2022 End: 11-21-[address] BENI APARICIO Facility:[facility] Start: 11-05-2022 End: 11-05-2022 ambulatory Ron Doreen Other [facility] Other Start: 11-05-2022 Office outpatient visit 15 minutes Ron Doreen [facility] Start: 10-29-2022 End: 10-30-[address] JANA MONSON Facility:[facility] Start: 10-24-2022 End: 10-24-[address] LILLIAN ACOSTA . Facility:[facility] Start: 10-24-2022 End: 10-25-[address] DHRUV RUBI . Facility:[facility] Start: 09-27-2022 End: 09-27-2022 ambulatory Jana Monson Other [facility] Other Start: 09-27-2022 Office outpatient visit 15 minutes Jana Iona [facility] Start: 09-18-2022 End: 09-19-2022 ambulatory RON DOREEN Facility:[facility] Start: 09-11-2022 End: 09-11-[address] DHRUV RUBI . Facility:[facility] Start: 08-22-2022 End: 08-22-2022 ambulatory Ron Doreen Other [facility] Other Start: 08-22-2022 Office outpatient visit 15 minutes Ron Doreen [facility] Start: 08-13-2022 End: 08-14-2022 ambulatory RON DOREEN Facility:[facility] Start: 06-25-2022 End: 06-26-[address] DHRUV RUBI . Facility:[facility] Start: 06-18-2022 End: 06-18-[address] DHRUV RUBI . Facility:[facility] Start: 06-01-2022 End: 06-02-[address] YANET HUERTA Facility:[facility] Start: 05-28-2022 End: 05-28-2022 ambulatory Ron Doreen Other [facility] Other Start: 05-28-2022 Telephone encounter Ron Doreen [facility] Start: 05-21-2022 End: 05-22-[address] DHRUV RUBI . Facility:[facility] Start: 05-16-2022 End: 05-16-2022 ambulatory Ron Doreen Other [facility] Other Start: 05-16-2022 Telephone encounter Ron Doreen [facility] Start: 05-10-2022 End: 05-10-2022 ambulatory Ron Doreen Other [facility] Other Start: 05-10-2022 Telephone encounter Ron Doreen [facility] Start: 05-08-2022 End: 05-08-2022 ambulatory Ron Doreen Other [facility] Other Start: 05-08-2022 Office outpatient visit 25 minutes Ron Doreen [facility] Start: 05-02-2022 End: 05-03-2022 ambulatory RON DOREEN Facility: Start: 04-24-2022 End: 04-24-2022 ambulatory Mary Anne Mensahs Other [facility] Other Start: 04-24-2022 Telephone encounter Azduc Shaferhous [facility] Start: 01-18-2022 End: 01-18-2022 ambulatory Ron Doreen Other [facility] Other Start: 01-18-2022 Office outpatient visit 25 minutes Ron Doreen [facility] Start: 05-21-2017 End: 05-22-2017 Ambulatory DEFAULT PHYSICIAN Facility:[facility] Procedures Date Procedure Procedure Detail Performing [...] 03-19-2024 Adult BMI Screening Adult BMI Screening [facility] Start: 03-19-2024 Tobacco Screening Tobacco Screening [facility] Start: 06-07-2023 COVID-19 Vaccine () COVID-19 Vaccine () [facility] Start: 06-07-2023 Influenza vaccination Influenza Vaccine [facility] Start: 12-28-2021 Depression Screening Depression Screening [facility] Start: 2009 Fall Risk Screening Fall Risk Screening [facility] Start: 1994 Administration of varicella zoster vaccine Zoster (Shingles) Vaccine (1 of 2) [facility] Start: 12-15-1963 DTaP,Tdap and Td Vaccines (1 - Tdap) DTaP,Tdap and Td Vaccines (1 - Tdap) [facility] Start: 1962 Adult BMI Follow Up Plan Adult BMI Follow Up Plan [facility] Start: 1944 Medicare Annual Wellness Visit Medicare Annual Wellness Visit [facility] Immunizations Immunization Date Immunization Notes Care Provider Fa cili 07-18-2020 Seasonal trivalent influenza vaccine, adjuvanted, preservative free Luis Kb PA-C Work Phone: [facility] 07-18-2020 influenza virus vacc ine, unspecified formulation Luis Kb PA-C Work Phone: [facility] 07-22-2019 Seasonal trivalent influenza vaccine, adjuvanted, preservative free Luis Kb PA-C Work Phone: [facility] 07-14-2018 Seasonal trivalent influenza vaccine, adjuvanted, preservative free Luis Kb PA-C Work Phone: [facility] 07-15-2017 pneumococcal conjuga te vaccine, 13 valent Luis Kb PA-C Work Phone: [facility] 07-08-2017 influenza, high dose seasonal, preservative-free Luis Kb PA-C Work Phone: [facility] 07-25-2016 influenza, high dose seasonal, preservative-free Luis Kb PA-C Work Phone: [facility] 07-11-2015 influenza, high dose seasonal, preservative-free Luis Kb PA-C Work Phone: [facility] 07-16-2014 influenza, seasonal, injectable Luis Kb PA-C Work Phone: [facility] 07-10-2013 influenza, seasonal, injectable Luis Kb PA-C Work Phone: [facility] 08-08-2012 influenza virus vacc ine, unspecified formulation [facility] 08-08-2012 pneumococcal polysaccharide vaccine, 23 valent Luis Kb PA-C Work Phone: [facility] [employer] 07-11-2011 influenza virus vacc ine, unspecified formulation Luis Kb PA-C Work Phone: [facility] [email or web address] [facility] 08-15-2010 influenza virus vacc ine, unspecified formulation Luis Kb PA-C Work Phone: [facility] [email or web address] [facility] 07-26-2009 influenza virus vacc ine, unspecified formulation Luis Kb PA-C Work Phone: [facility] [employer] 08-04-2008 influenza virus vacc ine, unspecified formulation [facility] PA-C [facility] 08-13-2007 influenza virus vacc ine, unspecified formulation Luis Kb PA-C Work Phone: [facility] [email or web address] [facility] 08-11-2004 influenza virus vacc ine, unspecified formulation [facility]-C [facility] 08-09-2003 influenza virus vacc ine, unspecified formulation [facility]b PA-C [facility] 08-09-2003 pneumococcal polysaccharide vaccine, 23 valent Luis Kb PA-C Work Phone: [facility] [email or web address] [facility] Payers Date Payer Category Payer Medicare [employer] MEDICARE A [employer] MEDICARE PLAN (HMO) [id number] 2021-Present [phone] [address] [place] [address] [id number] 1960 Medicare [id number] 1944 Unknown [id number] [id number]3 1944 Unknown [id number] 2.16.840.1.304582.3.579.2.593 1944 Unknown [id number] 2.16.840.1.650350.3.579.2.593 1944 Unknown [id number] 2.16.840.1.854567.3.579.2.593 1944 Unknown [id number] 2.16.840.1.722323.3.579.2.593 1944 Unknown [id number] 2.16.840.1.876725.3.579.2.593 1944 Unknown [id number] 2.16.840.1.435268.3.579.2.593 1944 Unknown [id number] 2.16.840.1.024893.3.579.2.593 1944 Unknown [id number] 2.16.840.1.249373.3.579.2.593 1944 Unknown [id number] 2.16.840.1.001783.3.579.2.593 1944 Unknown [id number] 2.16.840.1.514652.3.579.2.593 1944 Unknown [id number] 2.16.840.1.991731.3.579.2.593 1944 Unknown [id number] 2.16.840.1.581737.3.579.2.593 1944 Unknown [id number] 2.16.840.1.789330.3.579.2.593 1944 Unknown [id number] 2.16.840.1.212555.3.579.2.593 1944 Unknown [id number] 2.16.840.1.678796.3.579.2.593 1944 Unknown [id number] 2.16.840.1.508534.3.579.2.1259 1944 Unknown [id number] 2.16.840.1.910331.3.579.2.9 1944 Unknown [id number] 2.16.840.1.332438.3.579.2.9 1944 Unknown [id number] 2.16.840.1.247022.3.579.2.9 1944 Unknown [id number] 2.16.840.1.341029.3.579.2.1286 Unknown Social History Date Type Detail Facility Unknown if ever smoked [facility] Other Start: 12-28-2020 End: 03-19-2023 Sex Assigned At [facility] Other Start: 09-20-2022 Tobacco smoking status [facility] Ex-smoker [facility] End: 10-07-1969 History of tobacco use Current smoker [facility] End: 10-07-1969 History of tobacco use Cigarette Smoker [facility] Start: 09-20-2022 Tobacco use and exposure Smokeless tobacco non-user [facility] Start: 03-19-2023 Alcohol intake Ex-drinker (finding) [facility] Start: 12-28-2020 End: 03-19-2023 History of Social function [facility] Do you belong to any clubs or organizations such as voodoo groups, unions, fraternal or athletic groups, or school groups? No [facility] Are you now , , , , never or living with a partner? [facility] How hard is it for y ou to pay for the very basics like food, housing, medical care, and heating Not hard at all [facility] Do you feel stress - tense, restless, nervous, or anxious, or unable to sleep at night because your mind is troubled all the time - these days [OSQ] Not at all [facility] Start: [birth year]10-1946 Sex Assigned At Not on file [employer] [facility] Goals Date Patient Goal Desired [...] potassium improved with dietary restriction and Lasix. [facility] Other 01-29-2024 Evaluation note* Encounter Date Diagnosis Assessment Notes Treatment Notes Treatment Clinical Notes Oct, Anemia of renal disease (ICD-10 - D63.1) Oct, CKD (chronic kidney disease) stage 4, GFR 15-29 ml/min (ICD-10 - N18.4) [facility] Other 01-09-2024 Evaluation note* Encounter Date Diagnosis [...] potassium improved with dietary restriction and Lasix. [facility] Other 12-04-2023 Evaluation note* Encounter Date Diagnosis [...] 4, GFR 15-29 ml/min (ICD-10 - N18.4) [employer] Other 11-21-2023 Evaluation note* Encounter Date Diagnosis Assessment Notes Treatment Notes Treatment Clinical Notes Aug, Anemia of renal disease (ICD-10 - D63.1) Aug, CKD (chronic kidney disease) stage 4, GFR 15-29 ml/min (ICD-10 - N18.4) [employer] Other 11-09-2023 Evaluation note* Encounter Date Diagnosis [...] of kidney mass hydronephrosis or kidney stones. [employer] Other 10-26-2023 Evaluation note* Encounter Date Diagnosis [...] potassium improved with dietary restriction and Lasix. [employer] Other 09-18-2023 Evaluation note* Encounter Date Diagnosis [...] potassium improved with dietary restriction and Lasix. [employer] Other 08-31-2023 Evaluation note* Encounter Date Diagnosis [...] potassium improved with dietary restriction and Lasix. [employer] Other 07-25-2023 Evaluation note* Encounter Date Diagnosis [...] to normal with dietary restriction and Lasix. [employer] Other 07-01-2023 Evaluation note* Encounter Date Diagnosis Assessment Notes Treatment Notes Treatment Clinical Notes Apr, CKD (chronic kidney disease) stage 4, GFR 15-29 ml/min (ICD-10 - N18.4) Apr, Anemia of renal disease (ICD-10 - D63.1) [employer] Other 06-27-2023 Evaluation note* Encounter Date Diagnosis [...] to normal with dietary restriction and Lasix. [employer] Other 06-01-2023 Evaluation note* Encounter Date Diagnosis [...] potassium diet and provide information about it. [employer] Other 03-16-2023 Evaluation note* Encounter Date Diagnosis [...] to Continue Vit D 5000 units daily [employer] Other 01-30-2023 Evaluation note* Encounter Date Diagnosis [...] to Continue Vit D 5000 units daily [employer] Other 12-22-2022 Evaluation note* Encounter Date Diagnosis [...] to Continue Vit D 5000 units daily [employer] Other 11-16-2022 Evaluation note* Encounter Date Diagnosis [...] to Continue Vit D 5000 units daily [employer] Other 08-04-2022 Evaluation note* Encounter Date Diagnosis Assessment Notes Treatment Notes Treatment Clinical Notes May, Hypertensive chronic kidney disease with stage 1 through stage 4 chronic kidney disease, or unspecified chronic kidney disease (ICD-10 - I12.9) [employer] Other 08-02-2022 Evaluation note* Encounter Date Diagnosis [...] to Continue Vit D 5000 units daily [employer] Other 07-19-2022 Evaluation note* Encounter Date Diagnosis Assessment Notes Treatment Notes Treatment Clinical Notes Apr, Hypertensive chronic kidney disease with stage 1 through stage 4 chronic kidney disease, or unspecified chronic kidney disease (ICD-10 - I12.9) [employer] Other 04-14-2022 Evaluation note* Encounter Date Diagnosis [...] to take Vit D 1000 units daily [employer] Other Evaluation noteNo InformationNort [employer] Other Evaluation note* Diagnosis Atherosclerosis of [place] coronary artery of [place] heart without angina 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 Hypertensive urgency Shortness of breath Paroxysmal atrial fibrillation ([facility]) Atrial fibrillation Localized edema [facility] - Reported* Type Description Date [...] NOSE 10/2019 Surgical History QUAD BYPASS AT [facility] [place] 01/01/2021 Hospitalization History ELEVATED BLOOD PRESSURE Hospitalization History SEE ABOVE Hospitalization History COVID 09/2020 [employer] Other History general Narrative - Reported* Type [...] History SEE ABOVE Hospitalization History COVID 09/2020 [employer] Other [employer] general Narrative - Reported* Type Description Date [...] History SEE ABOVE Hospitalization History COVID 09/2020 [employer] Other [employer] general Narrative - ReportedNoOwn Products Other history general Narrative - Reported* Type [...] NOSE 10/2019 Surgical History QUAD BYPASS AT [facility] 01/01/2021 Hospitalization History ELEVATED BLOOD PRESSURE Hospitalization History SEE ABOVE Hospitalization History COVID 09/2020 [employer] Other InstructionsNot on filedocumented in this encounter [facility] Summary Purpose Family History No Family History Records FoundNo Family History Records FoundNo Family History Records FoundNo Family History Records Found Advance Directives No Advanced Directives Records FoundLatest Code Status on File Code Status Date Activated Date Inactivated Comments Full Code 12/28/2020 2:33 PM 01/03/2021 7:38 PM Additional Source Comments INFORMATION SOURCE (unrecogn ized section and content) DATE CREATED AUTHOR 04/02/2018 [facility] DATE CREATED AUTHOR AUTHOR'S ORGANIZ ATION 01/27/2023 [facility] DATE CREATED AUTHOR AUTHOR'S ORGANIZ ATION 01/17/2024 [facility] EPIC DATE CREATED AUTHOR AUTHOR'S ORGANIZ ATION 01/18/2024 [facility] REASON FOR VISIT (unrecogniz ed section and content) Reason Comments Med Refill Care Teams (unrecognized sec tion and content) Data Governance Analyst Relationship Specialty Start Date End Date Dhruv Rubi MD [address] [place] [address] PCP - General Family Medicine 10/20/20 FOR [...] BE BASED ON THE PRIMARY CLINICAL RECORDS. [email or web address] provides no warranty or guarantee of the accuracy or completeness of information in this document.
[2024-01-21 08:13] LABS: Bilirubin Urine NEGATIVE (NEGATIVE); Blood Urine TRACE-I (NEGATIVE); Clarity Urine CLEAR (CLEAR); Color Urine LT. YELLOW (YELLOW); Glucose Urine UA NEGATIVE (NEGATIVE); Ketones Urine NEGATIVE (NEGATIVE); Leukocyte Esterase Urine NEGATIVE (NEGATIVE); Nitrite Urine NEGATIVE (NEGATIVE); Protein Urine >=300 mg/dL (NEG/TRACE); Urobilinogen Urine 0.2 EU/dL (0.2-1.0)
[2024-01-21 08:56] LABS: Bacteria Urine NONE SEEN #/HPF (NONE SEEN); Cast Seen? NONE SEEN #/LPF (NONE SEEN); Crystals Seen? None Seen #/HPF (None Seen); Mucus Urine NONE SEEN (NONE SEEN); RBC Urine 0-2 #/HPF (0-2); Squamous Epithelial Cell Urine RARE #/LPF (NONE/RARE); WBC Urine 0-2 #/HPF (NONE SEEN)
== END 2024-01-21 06:49 | disposition home or self-care (01) ==
LOC: LAB 06:49
PROVIDERS: PCP Family Medicine; Visit Provider Family Medicine
DX: R30.0 Dysuria (principal)
CPT/HCPCS: 81001; 87086

== ENCOUNTER 2024-01-21 15:53 | Inpatient (IN) | payer MEDICARE, SELFPAY ==
[2024-01-21] VITALS (13 sets, daily range): BP systolic 156–290; BP diastolic 58–110; PULSE 73–86; TEMP 36.7–36.9; O2SAT 96–97; BMI 32.0; BMI 30.7
--- NOTE | 2024-01-21 15:54 | ECG_ITS ---
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
--- NOTE | 2024-01-21 16:14 | ED.GENADUL1 ---
HPI HPI - General Adult General Chief complaint: Chest Pain Stated complaint: High Blood Pressure Chest Pain Time Seen by Provider: 01/21/24 15:53 Source: patient Mode of arrival: walk-in Limitations: no limitations Related Data Home Medications ?Medication ?Instructions ?Recorded ?Confirmed allopurinol 300 mg tablet 300 mg PO DAILY 03/17/23 01/21/24 atorvastatin 80 mg tablet 80 mg PO .QHS 03/17/23 01/21/24 insulin aspart U-100 100 unit/mL 12 unit subcut DAILY 03/17/23 01/21/24 (3 mL) subcutaneous pen (Novolog FlexPen U-100 Insulin aspart) liothyronine 5 mcg tablet 10 mcg PO .QD 03/17/23 01/21/24 magnesium oxide 400 mg (241.3 mg 400 mg PO TID 03/17/23 01/21/24 magnesium) tablet pantoprazole 40 mg tablet,delayed 40 mg PO .QD 03/17/23 01/21/24 release ferrous sulfate 325 mg (65 mg 325 mg PO BID 12/31/23 01/21/24 iron) tablet lisinopril 20 mg tablet 20 mg PO .once a day 12/31/23 01/21/24 meloxicam 15 mg tablet 15 mg PO .QD 12/31/23 01/21/24 Previous Rx's ?Medication ?Instructions ?Recorded carvedilol 25 mg tablet 37.5 mg (1.5 x 25 mg) PO BID #90 01/01/24 tabs clonidine HCl 0.1 mg tablet 0.2 mg (2 x 0.1 mg) PO BID #120 01/01/24 tabs Allergies Allergy/AdvReac Type Severity Reaction Status Date / Time amoxicillin [From Augmentin] Allergy Rash Verified 12/30/23 20:03 clavulanic acid Allergy Rash Verified 12/30/23 20:03 [From Augmentin] sulfamethoxazole Allergy Rash Verified 12/30/23 20:03 [From Bactrim] trimethoprim [From Bactrim] Allergy Rash Verified 12/30/23 20:03 NORVASC Allergy Unknown Uncoded 12/30/23 20:03 CT dye Allergy Unconscious Uncoded 12/30/23 20:03 Opioid HPI Opioid Management Most Recent Opioid Data: Last Pain Scale 7 12/31/23 01:26 Last ORT Total Score 0 12/31/23 00:41 Last ORT Risk Category Low Risk 12/31/23 00:41 Review of Systems ROS Constitutional Denies: fever or chills Ears, nose, mouth, and throat Denies: throat pain or nasal congestion Cardiovascular Reports: chest pain Respiratory Reports: shortness of breath; Denies: cough Gastrointestinal Denies: nausea or vomiting Musculoskeletal Denies: back pain or neck pain Integumentary/Breast Denies: rash Neurological Denies: headache Hematologic/Lymphatic Denies: easy bruising or easy bleeding PFSH PFSH Medical History (Updated 01/21/24 @ 17:20 by JOSÉ MIGUEL Gibbs) Chest pain ?R07.9 - Chest pain, unspecified (ICD-10) Hypertensive urgency ?I16.0 - Hypertensive urgency (ICD-10) Raynaud disease ?I73.00 - Raynaud's syndrome without gangrene (ICD-10) Basal cell carcinoma of skin of nose ?C44.311 - Basal cell carcinoma of skin of nose (ICD-10) Elevated cholesterol ?E78.00 - Pure hypercholesterolemia, unspecified (ICD-10) Chronic kidney disease ?N18.9 - Chronic kidney disease, unspecified (ICD-10) HTN (hypertension) ?I10 - Essential (primary) hypertension (ICD-10) Diabetes ?E11.9 - Type 2 diabetes mellitus without complications (ICD-10) CAD (coronary artery disease) ?I25.10 - Atherosclerotic heart disease of [place] coronary artery without angina pectoris (ICD-10) Surgical History (Updated 12/31/23 @ 02:52 by Seema Hung RN) S/P CABG x 1 ?Z95.1 - Presence of aortocoronary bypass graft (ICD-10) H/O shoulder surgery ?Z98.890 - Other specified postprocedural states (ICD-10) History of cholecystectomy ?Z90.49 - Acquired absence of other specified parts of digestive tract (ICD-10) History of hysterectomy ?Z90.710 - Acquired absence of both cervix and uterus (ICD-10) Family History (Updated 12/31/23 @ 02:55 by Seema Hung RN) Sister Family history of myocardial infarction Family history of hypertension Brother Family history of myocardial infarction Family history of diabetes mellitus Brother Family history of hypertension Father Family history of cancer Social History Smoking status: Former smoker Highest level of school completed/degree received: 12th grade, no diploma Exam Narrative Exam Narrative: Gen.: Awake, alert, in no distress Head: Normocephalic, atraumatic ENT: Moist mucous membranes Respiratory: No respiratory distress, lungs clear bilaterally Cardio: Regular rate and rhythm Extremities: Moves extremities equally, no Pitting edema Psych: Normal mood and affect Neuro: No focal neuro deficit Skin: Warm, dry, intact Constitutional Vital Signs, click to edit/add: Last Vital Signs Temp 98.1 F 01/21/24 15:56 Pulse 86 01/21/24 15:56 Resp 18 01/21/24 15:56 BP 182/98 H 01/21/24 16:54 Pulse Ox 97 01/21/24 15:56 O2 Del Method Room Air 01/21/24 15:56 Course Vital Signs Vital signs: Vital Signs Temperature 98.1 F 01/21/24 15:56 Pulse Rate 86 01/21/24 15:56 Respiratory Rate 18 01/21/24 15:56 Blood Pressure 290/110 H 01/21/24 15:56 Pulse Oximetry 97 01/21/24 15:56 Oxygen Delivery Method Room Air 01/21/24 15:56 Temperature 98.1 F 01/21/24 15:56 Pulse Rate 86 01/21/24 15:56 Respiratory Rate 18 01/21/24 15:56 Blood Pressure 182/98 H 01/21/24 16:54 Pulse Oximetry 97 01/21/24 15:56 Oxygen Delivery Method Room Air 01/21/24 15:56 Medical Decision Making [facility] Narrative Medical decision making narrative: Patient treated with 20 mg IV labetalol and 1.25 mg IV Vasotec with significant improvement of blood pressure to 182/92 manually. She has no significant chest pain or shortness of breath in the ER and maintains otherwise normal vital signs. Lab studies are stable although BNP is elevated, chest x-ray with no evidence of CHF. TSH is low, free T3 and free T4 were added. I discussed the case with Dr. Nino for Dr. Rubi and we will admit for hypertensive urgency to stepdown unit. Patient is stable at time of admission. Medical Records Medical records reviewed: Yes I reviewed the patient's medical records Lab Data Lab results reviewed: Yes I reviewed the patient's lab results Labs: Lab Results 01/21/24 Range/Units 16:08 WBC 7.5 (4.0-11.0) 10^3/uL RBC 3.33 L (4.20-5.40) 10^6/uL Hgb 10.4 L (12.0-16.0) g/dL Hct 31.2 L (36.0-48.0) % MCV 93.7 (81.0-99.0) fL MCH 31.2 (26.7-34.0) pg MCHC 33.3 (29.9-35.2) g/dL RDW 15.2 H (11.0-15.0) % Plt Count 200 (150-450) 10^3/uL MPV 9.3 L (9.5-13.5) fL Neut % (Auto) 55.6 (43.0-75.0) % Lymph % (Auto) 30.9 (20.5-60.0) % [place] % (Auto) 11.0 (1.7-12.0) % Eos % (Auto) 2.0 (0.9-7.0) % Baso % (Auto) 0.4 (0.2-2.0) % Neut # (Auto) 4.2 (1.4-6.5) 10^3/uL Lymph # (Auto) 2.3 (1.2-3.8) 10^3/uL [place] # (Auto) 0.8 (0.3-0.8) 10^3/uL Eos # (Auto) 0.2 (0.0-0.7) 10^3/uL Baso # (Auto) 0.0 (0.0-0.1) 10^3/uL Abs Immat Gran (auto) 0.01 (0.00-0.03) 10^3/uL Imm/Tot Granulo (auto) 0.1 (0.0-0.5) % PT 11.3 (9.0-11.6) sec INR 1.07 Sodium 137 (136-145) mmol/L Potassium 5.5 H (3.5-5.1) mmol/L Chloride 106 (98-107) mmol/L Carbon Dioxide 21.8 (21.0-32.0) mmol/L Anion Gap 14.7 BUN 40.0 H (7.0-18.0) mg/dL Creatinine 2.32 H (0.55-1.02) mg/dL Est GFR ( Amer) 25 L (>=60) Est GFR (Non-Af Amer) 20 L (>=60) BUN/Creatinine Ratio 17.2 Glucose 135 H (74-106) mg/dL Calcium 9.7 (8.5-10.1) mg/dL Magnesium 1.7 L (1.8-2.4) mg/dL Total Bilirubin 0.5 (0.2-1.0) mg/dL AST 23 (15-37) U/L ALT 38 (14-59) U/L Alkaline Phosphatase 89 (46-116) U/L Troponin I High Sens 13.6 (4.0-51.3) pg/mL NT-Pro-B Natriuret Pep 3226.0 H* (<=1800.0) pg/mL Total Protein 7.4 (6.4-8.2) g/dL Albumin 3.7 (3.4-5.0) g/dL Globulin 3.7 g/dL Albumin/Globulin Ratio 1.0 TSH 0.194 L (0.358-3.740) uIU/mL Free T4 0.96 (0.76-1.46) ng/dL Imaging Data Chest x-ray: Attestation: I have reviewed the pertinent imaging results. ECG Data Attestation: I personally reviewed and interpreted this ECG as follows: (Normal sinus rhythm at a rate of 82, no acute ST elevation or ectopy. Sinus arrhythmia noted. EKG reviewed by attending physician) Discharge Plan Discharge Chief Complaint: Chest Pain Clinical Impression: Hypertensive urgency, Chronic kidney disease Patient Disposition: Admitted as Observation Time of Disposition Decision: 17:20 Condition: Good Prescriptions / Home Meds: No Action allopurinol 300 mg tablet 300 mg PO DAILY atorvastatin 80 mg tablet 80 mg PO .QHS insulin aspart U-100 [Novolog FlexPen U-100 Insulin] 100 unit/mL (3 mL) insulin pen 12 unit SUBCUT DAILY Rx Instructions: 12 units am, 16units at lunch and 22 units in pm liothyronine 5 mcg tablet 10 mcg PO .QD magnesium oxide 400 mg (241.3 mg magnesium) tablet 400 mg PO TID pantoprazole 40 mg tablet,delayed release (DR/EC) 40 mg PO .QD lisinopril 20 mg tablet 20 mg PO .once a day meloxicam 15 mg tablet 15 mg PO .QD ferrous sulfate 325 mg (65 mg iron) tablet 325 mg PO BID carvedilol 25 mg Tablet 37.5 mg PO BID Qty: 90 11RF clonidine HCl 0.1 mg Tablet 0.2 mg PO BID Qty: 120 11RF Print Language: Japanese Referrals: Merrick Rubi MD [Primary Care Provider] - 1 week
[2024-01-21] MEDS: LABETALOL HCL 20 MG/4 ML SYRINGE IVP (16:20)
[2024-01-21] MEDS: ENALAPRILAT DIHYDRATE 1.25 MG/ML VIAL IV (16:20)
[2024-01-21 16:27] LABS: Basophils Percent Auto 0.4 % (0.2-2.0); Eosinophils Absolute Auto 0.2 10^3/uL (0.0-0.7); Hematocrit 31.2 % (36.0-48.0); Hemoglobin 10.4 g/dL (12.0-16.0); Immature Granulocytes Abs Auto 0.01 10^3/uL (0.00-0.03); Immature Granulocytes Pct Auto 0.1 % (0.0-0.5); Lymphocytes Absolute Auto 2.3 10^3/uL (1.2-3.8); Lymphocytes Percent Auto 30.9 % (20.5-60.0); Mean Corpuscular HGB Conc 33.3 g/dL (29.9-35.2); Mean Corpuscular Hemoglobin 31.2 pg (26.7-34.0); Mean Corpuscular Volume 93.7 fL (81.0-99.0); Mean Platelet Volume 9.3 fL (9.5-13.5); Monocytes Absolute Auto 0.8 10^3/uL (0.3-0.8); Neutrophils Absolute Auto 4.2 10^3/uL (1.4-6.5); Neutrophils Percent Auto 55.6 % (43.0-75.0); Platelet Count 200 10^3/uL (150-450); Red Blood Count 3.33 10^6/uL (4.20-5.40); Red Cell Distribution Width 15.2 % (11.0-15.0); White Blood Count 7.5 10^3/uL (4.0-11.0)
--- NOTE | 2024-01-21 16:35 | XR_ITS ---
The [address] [address] Patient Name: KYLAH BERGER MRN: [id number] date: 1945 Sex: F Assigned Patient Location: ED.MAIN Current Patient Location: ED.MAIN Accession/Order Number: [id number] Exam Date: 01/21/2024 16:30 Report Date: 01/21/2024 17:37 At the request of: ENEDINA WALKER Procedure: XR chest 1V EXAM: XR chest 1V at 1633 hours HISTORY: Cough COMPARISON: 12/30/2023 TECHNIQUE: AP upright portable chest x-ray FINDINGS: The heart is not enlarged and the vasculature is not distended. No acute infiltrate, effusion or pneumothorax is identified. Multiple sternal wire sutures are present. The osseous structures are grossly intact. XR/XR chest 1V IMPRESSION: No acute infiltrate or evidence of cardiac decompensation. The overall appearance of the chest is essentially unchanged. Electronically authenticated by: NEFTALY RICHEY Date: 01/21/2024 17:37
[2024-01-21 16:37] LABS: INR 1.07; Prothrombin Time 11.3 sec (9.0-11.6)
[2024-01-21 16:38] LABS: Alanine Aminotransferase 38 U/L (14-59); Albumin Level 3.7 g/dL (3.4-5.0); Alkaline Phosphatase 89 U/L (46-116); Anion Gap 14.7; Aspartate Amino Transferase 23 U/L (15-37); BUN Creatinine Ratio 17.2; Bilirubin Total 0.5 mg/dL (0.2-1.0); Calcium 9.7 mg/dL (8.5-10.1); Carbon Dioxide 21.8 mmol/L (21.0-32.0); Chloride 106 mmol/L (98-107); Estimated GFR (African America 25 (>=60); Estimated GFR (Non-African Ame 20 (>=60); Globulin 3.7 g/dL; Glucose 135 mg/dL (74-106); Potassium 5.5 mmol/L (3.5-5.1); Sodium 137 mmol/L (136-145); Total Protein 7.4 g/dL (6.4-8.2)
[2024-01-21 16:45] LABS: Thyroid Stimulating Hormone 0.194 uIU/mL (0.358-3.740)
[2024-01-21 16:50] LABS: Magnesium 1.7 mg/dL (1.8-2.4)
[2024-01-21 16:52] LABS: Troponin I High Sensitivity 13.6 pg/mL (4.0-51.3)
[2024-01-21 17:15] LABS: Free T4 0.96 ng/dL (0.76-1.46)
[2024-01-21 17:21] LABS: Free T3 2.91 pg/mL (2.18-3.98)
[2024-01-21 17:49] LABS: Glucometer 154 mg/dL (74-106)
--- OUTSIDE RECORDS SUMMARY | 2024-01-21 18:05 | XMS_ITS | CCD ---
Author Organization [facility] Care Team Providers Care Ergonomics Technician Name Role Phone PHYSICIAN, DEFAULT Unavailable Unavailable [...] DR BARTLETT Consulting Unavailable HOY ., DR BATRLETT Primary Care Unavailable HOY ., DR BARTLETT [...] Unavailable Dhruv Rubi MD Primary Care Provider [phone] GA CRESPO Attending Unavailable GA CRESPO Attending Unavailable GREG TINEO Attending Unavailable GA CRESPO Attending Unavailable THUAN DELVALLE Attending Unavailable DHRUV RUBI Referring Unavailable DHRUV RUBI Primary Care Unavailable Allergies Allergy Classification Reported Allergen(s) Allergy Type Date of Onset Reaction(s) Facility (20 sources) amLODIPine; Translations: [AMLODIPINE] Drug Allergy 03-28-20 05 [facility] [place] [facility] (20 sources) Amoxicillin / Clavulanate Drug Allergy 11-23-19 21 Rash [facility] Other (20 sources) Contrast media Propensity to adverse reactions Unknown [facility] Other (2 sources) Doxazosin; Translations: [doxazosin] Drug Allergy Unknown [facility] Other (20 sources) Sulfamethoxazole / Trimethoprim Drug Allergy 11-23-19 Rash [facility] Other (20 sources) Doxazosin; Translations: [DOXAZOSIN] Drug Allergy 11-23-19 Unknown [facility] Other (9 sources) Amoxicillin / Clavulanate; Translations: [Augmentin] Drug Allergy 11-16-19 16 Unknown [facility] (1 source) amLODIPine Drug Allergy 04-25-20 14 [facility] (1 source) Sulfamethoxazole / Trimethoprim Drug Allergy 03-09-20 13 [facility] (2 sources) Iodinated Contrast Media; Translations: [IODINATED CONTRAST MEDIA] Propensity to adverse reactions to drug 11-23-19 [facility] (1 source) Sulfamethoxazole / Trimethoprim; Translations: [SULFAMETHOXAZOLE-T RIMETHOPRIM] Drug [facility] AMOXICILLIN-POT CLAVULANATE; Translations: [AMOXICILLIN-POT CLAVULANATE] Propensity to adverse reactions to drug (disorder) 11-23-19 [facility] Medications Current Medications Medication [...] coronary artery bypass graft , Atherosclerosis of [place] coronary artery of [place] heart without angina pectoris , Paroxysmal atrial [...] (LIPITOR) 80 mg tablet Indications: Atherosclerosis of [place] coronary artery of [place] heart without angina pectoris , H/O four [...] / sennosides, penitentiary 8.6 mg oral tablet (5 sources) take 1 tablet by mouth every twelve hours Sennosides-Docusate Sodium 8.6-50 MG 1 tablet in the evening as needed Orally every 12 hours Active epoetin johnna-epbx 36834 UNT/ML Injectable Solution [Retacrit] (14 sources) Retacrit 11546 U NIT/ML as directed Injection Active ferrous [...] 12/05/2021 Active take 2 tablets by mo [facility] every twenty-four hours Liothyronine Sodium 5 MCG 2 tablets on a n empty stomach Orally Once a day Active take 2 tablets by mo [facility] every twenty-four hours lisinopril 10 mg [...] in the morning. 0 12/19/2020 Active retacrit 30674 unit/ml solution (5 sources) Retacrit 25190 UNIT/ML as directed Injection Active Sennosides-Docusate Sodium [...] Coronary atherosclerosis; Translations: [Atherosclerotic heart disease of [place] coronary artery without angina pectoris] Onset: 1 [...] fraction] 28.8 % Critically low 36.0-48.0 [facility] Comment on above: Performed By: #### H H #### [facility] [address] [place], [place] [address] Dr. Ember Teague Hemoglobin (Bld) [Mass/Vol] 9.6 g/dL Critically low 12.0-16.0 [facility] Comment on above: Performed By: #### H H #### [facility] [address] [address] [address] Ember Teague MCH (RBC) [Entitic mass] 30.7 pg Normal 26.7-34.0 [facility] Comment on above: Performed By: #### H H #### [facility] [address] [place] [address] Dr. Ember Teague MCHC (RBC) [Mass/Vol] 33.3 g/dL Normal 29.9-35.2 [facility] Comment on above: Performed By: #### H H #### [facility] [address] [place] [address] Dr. Ember Teague MCV (RBC) [Entitic vol] 92.0 fL Normal 81.0-99.0 [facility] Comment on above: Performed By: #### H H #### [facility] [address] [place] [address] Dr. Ember Teague PLT 214 103/ul Normal 150-450 [facility] Comment on above: Performed By: #### H H #### [facility] [address] [place] [address] Dr. Ember Teague RBC 3.13 106/ul Critically low 4.20-5.40 [facility] Comment on above: Performed By: #### H H #### [facility] [address] [place] [address] Dr. Ember Teague WBC 7.4 103/ul Normal 4.0-11.0 [facility] Comment on above: Performed By: #### H H #### [facility] [address] [place] [address] Dr. Ember Teague MAGNESIUMon 01-22-2023 Magnesium [Mass/Vol] 1.8 mg/dL Normal 1.8-2.4 [facility] Comment on above: Performed By: #### M G, RENAL #### [facility] [address] [place] [address] Dr. Ember Teague RENAL FUNCTION PANELon 01-22 Albumin [Mass/Vol] 3.6 g/dL Normal 3.4-5.0 [facility] Comment on above: Performed By: #### M G, RENAL #### [facility] [address] [address] [address] Ember Teague Calcium [Mass/Vol] 9.7 mg/dL Normal 8.5-10.1 [facility] Comment on above: Performed By: #### M G, RENAL #### [facility] [address] [address] [address] Ember Teague Chloride [Moles/Vol] 105 mmol/L Normal 98-107 [facility] Comment on above: Performed By: #### M G, RENAL #### [facility] [address] [address] [address] Ember Teague CO2 [Moles/Vol] 22.6 mmol/L Normal 21.0-32.0 [facility] Comment on above: Performed By: #### M G, RENAL #### [facility] [address] [place] [address] Dr. Ember Teague Creatinine [Mass/Vol] 2.18 mg/dL Critically high 0.55-1.02 [facility] Comment on above: Performed By: #### M G, RENAL #### [facility] [address] [place] [address] Dr. Ember Teague EGFR-AF SYRIAN 26 mL/min/1.73m2 Critically low >=60 [facility] Comment on above: Performed By: #### M G, RENAL #### [facility] [address] [place] [address] Dr. Ember Teague EGFR-NON AF SYRIAN 22 mL/min/1.73m2 Critically low >=60 [facility] Comment on above: Performed By: #### M G, RENAL #### [facility] [address] [address] [address] Ember Teague Glucose [Mass/Vol] 134 mg/dL Critically high 74-106 [facility] Comment on above: Performed By: #### M G, RENAL #### [facility] [address] [address] [address] Ember Teague Phosphate [Mass/Vol] 4.6 mg/dL Normal 2.6-4.7 [facility] Comment on above: Performed By: #### M G, RENAL #### [facility] [address] [place], [place] [address] Dr. Ember Teague Potassium [Moles/Vol] 5.1 mmol/L Normal 3.5-5.1 [facility] Comment on above: Performed By: #### M G, RENAL #### [facility] [address] [address] [address] Ember Teague Sodium [Moles/Vol] 138 mmol/L Normal 136-145 [facility] Comment on above: Performed By: #### M G, RENAL #### [facility] [address] [place], [place] [address] Dr. Ember Teague Urea nitrogen [Mass/Vol] 61.0 mg/dL Critically high 7.0-18.0 [facility] Comment on above: Performed By: #### M G, RENAL #### [facility] [address] [address] [address] Ember Teague MG MAMM SCREEN 3D MAY CADon 12-17-2022 MG MAMM SCREEN 3D MAY CAD Patient: KYLAH BERGER Exam Date: 12/17/2022 : 1945 Gender:F Ordering : DR DHRUV RUBI . Admission #: [id number] Family : Order #: [id number] CLICK HERE TO VIEW EXAM RADIOLOGY REPORT [...] MD on 12/17/2022 at 11:59 Normal [facility] FERRITINon 12-10-2022 Ferritin [Mass/Vol] 681.0 ng/mL Critically high 8.0-252.0 [facility] Comment on above: Performed By: #### P THINT #### [facility] [address] [place] [address] Dr. Ember Teague HEMOGRAM AND PLATELon 2022 Hematocrit (Bld) [Volume fraction] 27.1 % Critically low 36.0-48.0 [facility] Comment on above: Performed By: #### C VDTBH #### [facility] [address] [place] [address] Dr. Ember Teague Hemoglobin (Bld) [Mass/Vol] 9.7 g/dL Critically low 12.0-16.0 [facility] Comment on above: Performed By: #### C VDTBH #### [facility] [address] [place] [address] Dr. Ember Teague MCH (RBC) [Entitic mass] 31.4 pg Normal 26.7-34.0 [facility] Comment on above: Performed By: #### C VDTBH #### [facility] [address] [place] [address] Dr. Ember Teague MCHC (RBC) [Mass/Vol] 35.8 g/dL Critically high 29.9-35.2 [facility] Comment on above: Performed By: #### C VDTBH #### [facility] [address] [place] [address] Dr. Ember Teague MCV (RBC) [Entitic vol] 87.7 fL Normal 81.0-99.0 [facility] Comment on above: Performed By: #### C VDTBH #### [facility] [address] [place] [address] Dr. Ember Teague PLT 218 103/ul Normal 150-450 [facility] Comment on above: Performed By: #### C VDTBH #### [facility] [address] [address] [address] Ember Teague RBC 3.09 106/ul Critically low 4.20-5.40 [facility] Comment on above: Performed By: #### C VDTBH #### [facility] [address] [address] [address] Ember Teague WBC 6.6 103/ul Normal 4.0-11.0 [facility] Comment on above: Performed By: #### C VDTBH #### [facility] [address] [address] [address] Ember Teague IRON AND TIBCon 12-10-2022 % SATURATION 30.2 % Normal [facility] Comment on above: Performed By: #### P THINT #### [facility] [address] [address] [address] Ember Teague Iron [Mass/Vol] 84.0 ug/dL Normal 50.0-170.0 [facility] Comment on above: Performed By: #### P THINT #### [facility] [address] [address] [address] Ember Teague TIBC DIRECT 278.0 ug/dL Normal 250.0-450.0 [facility] Comment on above: Performed By: #### P THINT #### [facility] [address] [address] [address] Ember Teague XR FOOT MAY MIN [...] #### [facility] [address] [place] [address] Dr. Ember Teague Hemoglobin (Bld) [Mass/Vol] 10.0 g/dL Critically low 12.0-16.0 [facility] Comment on above: Performed By: #### R ENAL #### [facility] [address] [place] [address] Dr. Ember Teague MCH (RBC) [Entitic mass] 31.6 pg Normal 26.7-34.0 [facility] Comment on above: Performed By: #### R ENAL #### [facility] [address] [place] [address] Dr. Ember Teague MCHC (RBC) [Mass/Vol] 36.1 g/dL Critically high 29.9-35.2 [facility] Comment on above: Performed By: #### R ENAL #### [facility] [address] [place] [address] Dr. Ember Teague MCV (RBC) [Entitic vol] 87.7 fL Normal 81.0-99.0 [facility] Comment on above: Performed By: #### R ENAL #### [facility] [address] [place] [address] Dr. Ember Teague PLT 182 103/ul Normal 150-450 [facility] Comment on above: Performed By: #### R ENAL #### [facility] [address] [place] [address] Dr. Ember Teague RBC 3.16 106/ul Critically low 4.20-5.40 [facility] Comment on above: Performed By: #### R ENAL #### [facility] [address] [place] [address] Dr. Ember Teague WBC 6.8 103/ul Normal 4.0-11.0 [facility] Comment on above: Performed By: #### R ENAL #### [facility] [address] [address] [address] Ember Teague PROF CHEM 8 (BAS METB)on Anion gap [Moles/Vol] 17.6 mmol/L Normal [facility] Comment on above: Performed By: #### C VDTBH #### [facility] [address] [place] [address] Dr. Ember Teague Calcium [Mass/Vol] 9.0 mg/dL Normal 8.5-10.1 [facility] Comment on above: Performed By: #### C VDTBH #### [facility] [address] [place] [address] Dr. Ember Teague Chloride [Moles/Vol] 104 mmol/L Normal 98-107 [facility] Comment on above: Performed By: #### C VDTBH #### [facility] [address] [address] [address] Ember Teague CO2 [Moles/Vol] 22.2 mmol/L Normal 21.0-32.0 [facility] Comment on above: Performed By: #### C VDTBH #### [facility] [address] [place] [address] Dr. Ember Teague Creatinine [Mass/Vol] 2.03 mg/dL Critically high 0.55-1.02 [facility] Comment on above: Performed By: #### C VDTBH #### [facility] [address] [place] [address] Dr. Ember Teague EGFR-AF SYRIAN 29 mL/min/1.73m2 Critically low >=60 [facility] Comment on above: Performed By: #### C VDTBH #### [facility] [address] [place] [address] Dr. Ember Teague EGFR-NON AF SYRIAN 24 mL/min/1.73m2 Critically low >=60 [facility] Comment on above: Performed By: #### C VDTBH #### [facility] [address] [address] [address] Ember Teague Glucose [Mass/Vol] 154 mg/dL Critically high 74-106 [facility] Comment on above: Performed By: #### C VDTBH #### [facility] [address] [address] [address] Ember Teague Potassium [Moles/Vol] 4.8 mmol/L Normal 3.5-5.1 [facility] Comment on above: Performed By: #### C VDTBH #### [facility] [address] [address] [address] Ember Teague Sodium [Moles/Vol] 139 mmol/L Normal 136-145 [facility] Comment on above: Performed By: #### C VDTBH #### [facility] [address] [place] [address] Dr. Ember Teague Urea nitrogen [Mass/Vol] 43.0 mg/dL Critically high 7.0-18.0 [facility] Comment on above: Performed By: #### C VDTBH #### [facility] [address] [place] [address] Dr. Ember Teague Urea nitrogen/Creatinine [Mass ratio] 21.2 mg/mg [facility] Comment on above: Performed By: #### C VDTBH #### [facility] [address] [place] [address] Dr. Ember Teague CULTURE SPUTUMon 10-24-2022 CULTURE SPUTUM Culture Observations : Beta lactamase positive Isolate 1 Haemophilus influenzae Moderate growth of [facility] Comment on above: Performed By: #### R ENAL #### [facility] [address] [place] [address] Dr. Ember Teague SPUTUM GRAM STAINon 10-24-19 COMMENTS Normal [facility] Comment on above: Performed By: #### R ENAL #### [facility] [address] [place] [address] Dr. Ember Teague DIPHTHEROIDS [facility] Comment on above: Performed By: #### R ENAL #### [facility] [address] [address] [address] Ember Teague EPITHELIALS >25 Normal [facility] Comment on above: Performed By: #### R ENAL #### [facility] [address] [address] [address] Ember Teague FUNGAL ELEMENTS Normal [facility] Comment on above: Performed By: #### R ENAL #### [facility] [address] [address] [address] Ember Teague GRAM NEG BACILLI Normal [facility] Comment on above: Performed By: #### R ENAL #### [facility] [address] [address] [address] Ember Teague GRAM NEG DIPPLOCOCCI FEW Normal [facility] Comment on above: Performed By: #### R ENAL #### [facility] [address] [place] [address] Dr. Ember Teague GRAM POS BACILLI FEW Normal [facility] Comment on above: Performed By: #### R ENAL #### [facility] [address] [address] [address] Ember Teague GRAM POSITIVE COCCI MANY Normal [facility] Comment on above: Performed By: #### R ENAL #### [facility] [address] [address] [address] Ember Teague WBC (Bld) [#/Vol] 10*3/uL Normal [facility] Comment on above: Performed By: #### R ENAL #### [facility] [address] [place] [address] Dr. Ember Teague XR CHEST 2 Von [...] [Mass/Vol] 612.0 ng/mL Critically high 8.0-252.0 [facility] Comment on above: Performed By: #### F ERR, FETIBC #### [facility] [address] [place] [address] Dr. Ember Teague HEMOGRAM AND PLATELon 2021 Hematocrit (Bld) [Volume fraction] 28.1 % Critically low 36.0-48.0 [facility] Comment on above: Performed By: #### C BC #### [facility] [address] [place] [address] Dr. Ember Teague Hemoglobin (Bld) [Mass/Vol] 9.7 g/dL Critically low 12.0-16.0 [facility] Comment on above: Performed By: #### C BC #### [facility] [address] [place] [address] Dr. Ember Teague MCH (RBC) [Entitic mass] 31.3 pg Normal 26.7-34.0 [facility] Comment on above: Performed By: #### C BC #### [facility] [address] [place] [address] Dr. Ember Teague MCHC (RBC) [Mass/Vol] 34.5 g/dL Normal 29.9-35.2 [facility] Comment on above: Performed By: #### C BC #### [facility] [address] [place] [address] Dr. Ember Teague MCV (RBC) [Entitic vol] 90.6 fL Normal 81.0-99.0 [facility] Comment on above: Performed By: #### C BC #### [facility] [address] [place] [address] Dr. Ember Teague PLT 183 103/ul Normal 150-450 [facility] Comment on above: Performed By: #### C BC #### [facility] [address] [place] [address] Dr. Ember Teague RBC 3.10 106/ul Critically low 4.20-5.40 [facility] Comment on above: Performed By: #### C BC #### [facility] [address] [place] [address] Dr. Ember Teague WBC 7.2 103/ul Normal 4.0-11.0 [facility] Comment on above: Performed By: #### C BC #### [facility] [address] [place] [address] Dr. Ember Teague IRON AND TIBCon 09-18-2022 % SATURATION 36.0 % Normal [facility] Comment on above: Performed By: #### F ERR, FETIBC #### [facility] [address] [place] [address] Dr. Ember Teague Iron [Mass/Vol] 77.0 ug/dL Normal 50.0-170.0 [facility] Comment on above: Performed By: #### F ERR, FETIBC #### [facility] [address] [place] [address] Dr. Ember Teague TIBC DIRECT 214.0 ug/dL Critically low 250.0-450.0 [facility] Comment on above: Performed By: #### F ERR, FETIBC #### [facility] [address] [place] [address] Dr. Ember Teague RENAL FUNCTION PANELon 09-18 Albumin [Mass/Vol] 3.7 g/dL Normal 3.4-5.0 [facility] Comment on above: Performed By: #### R ENAL #### [facility] [address] [place] [address] Dr. Ember Teague Calcium [Mass/Vol] 9.5 mg/dL Normal 8.5-10.1 [facility] Comment on above: Performed By: #### R ENAL #### [facility] [address] [place] [address] Dr. Ember Teague Chloride [Moles/Vol] 103 mmol/L Normal 98-107 [facility] Comment on above: Performed By: #### R ENAL #### [facility] [address] [place] [address] Dr. Ember Teague CO2 [Moles/Vol] 21.1 mmol/L Normal 21.0-32.0 [facility] Comment on above: Performed By: #### R ENAL #### [facility] [address] [place] [address] Dr. Ember Teague Creatinine [Mass/Vol] 1.85 mg/dL Critically high 0.55-1.02 [facility] Comment on above: Performed By: #### R ENAL #### [facility] [address] [place] [address] Dr. Ember Teague EGFR-AF SYRIAN 32 mL/min/1.73m2 Critically low >=60 [facility] Comment on above: Performed By: #### R ENAL #### [facility] [address] [place] [address] Dr. Ember Teague EGFR-NON AF SYRIAN 26 mL/min/1.73m2 Critically low >=60 [facility] Comment on above: Performed By: #### R ENAL #### [facility] [address] [place] [address] Dr. Ember Teague Glucose [Mass/Vol] 183 mg/dL Critically high 74-106 [facility] Comment on above: Performed By: #### R ENAL #### [facility] [address] [place] [address] Dr. Ember Teague Phosphate [Mass/Vol] 3.7 mg/dL Normal 2.6-4.7 [facility] Comment on above: Performed By: #### R ENAL #### [facility] [address] [place] [address] Dr. Ember Teague Potassium [Moles/Vol] 4.9 mmol/L Normal 3.5-5.1 [facility] Comment on above: Performed By: #### R ENAL #### [facility] [address] [place] [address] Dr. Ember Teague Sodium [Moles/Vol] 138 mmol/L Normal 136-145 [facility] Comment on above: Performed By: #### R ENAL #### [facility] [facility] [address] [place] [address] Dr. Ember Teague Urea nitrogen [Mass/Vol] 40.0 mg/dL Critically high 7.0-18.0 [facility] Comment on above: Performed By: #### R ENAL #### [facility] [address] [place] [address] Dr. Ember Teague CULTURE URINEon 09-15-2022 CULTURE [...] Trimethoprim/Sulfamet hoxazole <=20 S F Normal [facility] Comment on above: Performed By: #### R ENAL #### [facility] [address] [place] [address] Dr. Ember Teague BNPon 09-11-2022 Natriuretic peptide B (Bld) [Mass/Vol] 408.0 pg/mL Normal <=1,800.0 [facility] Comment on above: Performed By: #### P THINT #### [facility] [address] [place] [address] Dr. Ember Teague CBC AUTO DIFFon 09-11-2022 BASO # 0.0 103/ul Normal 0.0-0.1 [facility] Comment on above: Performed By: #### C BC #### [facility] [address] [place] [address] Dr. Ember Teague Basophils/100 WBC (Bld) 0.3 % Normal 0.2-2.0 [facility] Comment on above: Performed By: #### C BC #### [facility] [address] [place] [address] Dr. Ember Teague EO # 0.1 103/ul Normal 0.0-0.7 [facility] Comment on above: Performed By: #### C BC #### [facility] [address] [place] [address] Dr. Ember Teague Eosinophils/100 WBC (Bld) 1.9 % Normal 0.9-7.0 [facility] Comment on above: Performed By: #### C BC #### [facility] [address] [place] [address] Dr. Ember Teague Erythrocyte distribution width (RBC) [Ratio] 15.2 % Critically high 11.0-15.0 [facility] Comment on above: Performed By: #### C BC #### [facility] [address] [place] [address] Dr. Ember Teague Hematocrit (Bld) [Volume fraction] 26.6 % Critically low 36.0-48.0 [facility] Comment on above: Performed By: #### C BC #### [facility] [address] [place] [address] Dr. Ember Teague Hemoglobin (Bld) [Mass/Vol] 9.0 g/dL Critically low 12.0-16.0 [facility] Comment on above: Performed By: #### C BC #### [facility] [address] [place] [address] Dr. Ember Teague IG # 0.02 10e3/ul Normal 0.00-0.03 [facility] Comment on above: Performed By: #### C BC #### [facility] [address] [place] [address] Dr. Ember Teague IG % 0.3 % Normal 0.0-0.5 [facility] Comment on above: Performed By: #### C BC #### [facility] [address] [place] [address] Dr. Ember Teague LYMPH # 1.9 103/ul Normal 1.2-3.8 [facility] Comment on above: Performed By: #### C BC #### [facility] [address] [place] [address] Dr. Ember Teague Lymphocytes/100 WBC (Bld) 32.4 % Normal 20.5-60.0 [facility] Comment on above: Performed By: #### C BC #### [facility] [address] [place] [address] Dr. Ember Teague MANUAL DIFF REQ NO Normal [facility] Comment on above: Performed By: #### C BC #### [facility] [address] [place] [address] Dr. Ember Teague MCH (RBC) [Entitic mass] 31.1 pg Normal 26.7-34.0 [facility] Comment on above: Performed By: #### C BC #### [facility] [address] [place] [address] Dr. Ember Teague MCHC (RBC) [Mass/Vol] 33.8 g/dL Normal 29.9-35.2 [facility] Comment on above: Performed By: #### C BC #### [facility] [address] [place] [address] Dr. Ember Teague MCV (RBC) [Entitic vol] 92.0 fL Normal 81.0-99.0 [facility] Comment on above: Performed By: #### C BC #### [facility] [address] [place] [address] Dr. Ember Teague MONO # 0.6 103/ul Normal 0.3-0.8 [facility] Comment on above: Performed By: #### C BC #### [facility] [address] [place] [address] Dr. Ember Teague Monocytes/100 WBC (Bld) 10.0 % Normal 1.7-12.0 [facility] Comment on above: Performed By: #### C BC #### [facility] [address] [place] [address] Dr. Ember Teague NEUT # 3.2 103/ul Normal 1.4-6.5 [facility] Comment on above: Performed By: #### C BC #### [facility] [address] [place] [address] Dr. Ember Teague Neutrophils/100 WBC (Bld) 55.1 % Normal 43.0-75.0 [facility] Comment on above: Performed By: #### C BC #### [facility] [address] [address] [address] Ember Teague Platelet mean volume (Bld) [Entitic vol] 9.4 fL Critically low 9.5-13.5 [facility] Comment on above: Performed By: #### C BC #### [facility] [address] [address] [address] Ember Teague PLT 196 103/ul Normal 150-450 [facility] Comment on above: Performed By: #### C BC #### [facility] [address] [address] [address] Ember Teague RBC 2.89 106/ul Critically low 4.20-5.40 [facility] Comment on above: Performed By: #### C BC #### [facility] [address] [place] [address] Dr. Ember Teague WBC 5.8 103/ul Normal 4.0-11.0 [facility] Comment on above: Performed By: #### C BC #### [facility] [address] [place] [address] Dr. Ember Teague PROF 14(COMP METB)on 022 Albumin [Mass/Vol] 3.7 g/dL Normal 3.4-5.0 [facility] Comment on above: Performed By: #### P THINT #### [facility] [address] [place] [address] Dr. Ember Teague Albumin/Globulin [Mass ratio] 1.0 {ratio} Normal [facility] Comment on above: Performed By: #### P THINT #### [facility] [address] [place] [address] Dr. Ember Teague ALP [Catalytic activity/Vol] 79 U/L Normal 46-116 [facility] Comment on above: Performed By: #### P THINT #### [facility] [address] [place] [address] Dr. Ember Teague ALT [Catalytic activity/Vol] 24 U/L Normal 14-59 [facility] Comment on above: Performed By: #### P THINT #### [facility] [address] [place] [address] Dr. Ember Teague Anion gap [Moles/Vol] 12.8 mmol/L Normal [facility] Comment on above: Performed By: #### P THINT #### [facility] [address] [address] [address] Ember Teague AST [Catalytic activity/Vol] 17 U/L Normal 15-37 [facility] Comment on above: Performed By: #### P THINT #### [facility] [address] [address] [address] Ember Teague Bilirubin [Mass/Vol] 0.5 mg/dL Normal 0.2-1.0 [facility] Comment on above: Performed By: #### P THINT #### [facility] [address] [address] [address] Ember Teague Calcium [Mass/Vol] 9.4 mg/dL Normal 8.5-10.1 [facility] Comment on above: Performed By: #### P THINT #### [facility] [address] [address] [address] Ember Teague Chloride [Moles/Vol] 101 mmol/L Normal 98-107 [facility] Comment on above: Performed By: #### P THINT #### [facility] [address] [address] [address] Ember Teague CO2 [Moles/Vol] 24.3 mmol/L Normal 21.0-32.0 [facility] Comment on above: Performed By: #### P THINT #### [facility] [address] [address] [address] Ember Teague Creatinine [Mass/Vol] 2.84 mg/dL Critically high 0.55-1.02 [facility] Comment on above: Performed By: #### P THINT #### [facility] [address] [address] [address] Ember Teague EGFR-AF SYRIAN 20 mL/min/1.73m2 Critically low >=60 [facility] Comment on above: Performed By: #### P THINT #### [facility] [address] [address] [address] Ember Teague EGFR-NON AF SYRIAN 16 mL/min/1.73m2 Critically low >=60 [facility] Comment on above: Performed By: #### P THINT #### [facility] [address] [place] [address] Dr. Ember Teague Globulin (S) [Mass/Vol] 3.7 g/dL Normal [facility] Comment on above: Performed By: #### P THINT #### [facility] [address] [address] [address] Ember Teague Glucose [Mass/Vol] 174 mg/dL Critically high 74-106 [facility] Comment on above: Performed By: #### P THINT #### [facility] [address] [place] [address] Dr. Ember Teague Potassium [Moles/Vol] 5.1 mmol/L Normal 3.5-5.1 [facility] Comment on above: Performed By: #### P THINT #### [facility] [address] [place] [address] Dr. Ember Teague Protein [Mass/Vol] 7.4 g/dL Normal 6.4-8.2 [facility] Comment on above: Performed By: #### P THINT #### [facility] [address] [place] [address] Dr. Ember Teague Sodium [Moles/Vol] 133 mmol/L Critically low 136-145 Th [facility] Comment on above: Performed By: #### P THINT #### [facility] [address] [place] [address] Dr. Ember Teague Urea nitrogen [Mass/Vol] 68.0 mg/dL Critically high 7.0-18.0 [facility] Comment on above: Performed By: #### P THINT #### [facility] [address] [place] [address] Dr. Ember Teague Urea nitrogen/Creatinine [Mass ratio] 23.9 mg/mg Normal [facility] Comment on above: Performed By: #### P THINT #### [facility] [address] [place] [address] Dr. Ember Teague TROPONIN, HIGH SENSITIVITYon 09-11-2022 HSTROP 9.1 pg/mL Normal 4.0-51.3 [facility] Comment on above: Result Comment: CUT- OFF POINTS HAVE BEEN ESTABLISHED BASED ON THE FOURTH UNIVERSAL DEFINITIONS OF MYOCARDIAL INFARCTION. THE UPPER REFERENCE LIMIT (URL) OF TROPONIN, DEFINED THE 99TH PERCENTILE OF cTnI DISTRIBUTION IN A REFERENCE POPULATION, HAS BEEN CONFIRMED THE DECISION THRESHOLD FOR LA DIAGNOSIS. Performed By: #### P THINT #### [facility] [address] [place] [address] Dr. Ebmer Teague UA RANDOM W/MICROSCOPICon BACTERIA NONE SEEN Normal NONE SEEN [facility] Comment on above: Performed By: #### C VDTBH #### [facility] [address] [place] [address] Dr. Ember Teague Bilirubin Ql (U) Negative Normal NEGATIVE [facility] Comment on above: Performed By: #### C VDTBH #### [facility] [address] [place] [address] Dr. Ember Teague CAST NONE SEEN Normal NONE SEEN [facility] Comment on above: Performed By: #### C VDTBH #### [facility] [address] [place] [address] Dr. Ember Teague Clarity (U) CLEAR Normal CLEAR [facility] Comment on above: Performed By: #### C VDTBH #### [facility] [address] [place] [address] Dr. Ember Teague Color (U) LT. YELLOW Normal YELLOW [facility] Comment on above: Performed By: #### C VDTBH #### [facility] [address] [place] [address] Dr. Ember Teague Crystals LM Nom (Urine sed) NONE SEEN Normal NONE SEEN [facility] Comment on above: Performed By: #### C VDTBH #### [facility] [address] [place] [address] Dr. Ember Teague Epithelial cells LM Ql (Urine sed) FEW Abnormal NONE SEEN /RARE [facility] Comment on above: Performed By: #### C VDTBH #### [facility] [address] [place] [address] Dr. Ember Teague Glucose Ql (U) Negative Normal NEGATIVE The [facility] Comment on above: Performed By: #### C VDTBH #### [facility] [address] [place] [address] Dr. Ember Teague Hemoglobin Ql (U) Negative Normal NEGATIVE [facility] Comment on above: Performed By: #### C VDTBH #### [facility] [address] [address] [address] Ember Teague Ketones Ql (U) Negative Normal NEGATIVE [facility] Comment on above: Performed By: #### C VDTBH #### [facility] [address] [place] [address] Dr. Ember Teague LEUKOCYTES Negative Normal NEGATIVE [facility] Comment on above: Performed By: #### C VDTBH #### [facility] [address] [place] [address] Dr. Ember Teague MUCOUS NONE SEEN Normal NONE SEEN [facility] Comment on above: Performed By: #### C VDTBH #### [facility] [address] [place] [address] Dr. Ember Teague Nitrite Ql (U) Negative Normal NEGATIVE The [facility] Comment on above: Performed By: #### C VDTBH #### [facility] [address] [place] [address] Dr. Ember Teague pH (U) 5.5 [pH] Normal 5-9 [facility] Comment on above: Performed By: #### C VDTBH #### [facility] [address] [place] [address] Dr. Emebr Teague RBC NONE SEEN Abnormal 0-2 [facility] Comment on above: Performed By: #### C VDTBH #### [facility] [address] [place] [address] Dr. Ember Teague SPEC GRAVITY 1.010 Normal 1.005-<=1.025 [facility] Comment on above: Performed By: #### C VDTBH #### [facility] [address] [place] [address] Dr. Ember Teague UA PROTEIN Negative Normal NEGATIVE/ TRACE [facility] Comment on above: Performed By: #### C VDTBH #### [facility] [address] [place] [address] Dr. Ember Teague Urobilinogen Qn (U) 0.2 {Esau'U}/dL Normal 0.2 - 1. 0 [facility] Comment on above: Performed By: #### C VDTBH #### [facility] [address] [place] [address] Dr. Ember Teague WBC NONE SEEN Normal NONE SEEN [facility] Comment on above: Performed By: #### C VDTBH #### [facility] [address] [place] [address] Dr. Ember Teague CBC AUTO DIFFon 08-13-2022 BASO # 0.0 103/ul Normal 0.0-0.1 [facility] Comment on above: Performed By: #### C BC #### [facility] [address] [place] [address] Dr. Ember Teague Basophils/100 WBC (Bld) 0.3 % Normal 0.2-2.0 [facility] Comment on above: Performed By: #### C BC #### [facility] [address] [place] [address] Dr. Ember Teague EO # 0.2 103/ul Normal 0.0-0.7 [facility] Comment on above: Performed By: #### C BC #### [facility] [address] [place] [address] Dr. Ember Teague Eosinophils/100 WBC (Bld) 3.7 % Normal 0.9-7.0 [facility] Comment on above: Performed By: #### C BC #### [facility] [address] [place] [address] Dr. Ember Teague Erythrocyte distribution width (RBC) [Ratio] 15.0 % Normal 11.0-15.0 [facility] Comment on above: Performed By: #### C BC #### [facility] [address] [place] [address] Dr. Ember Teague Hematocrit (Bld) [Volume fraction] 27.9 % Critically low 36.0-48.0 [facility] Comment on above: Performed By: #### C BC #### [facility] [address] [place] [address] Dr. Ember Teague Hemoglobin (Bld) [Mass/Vol] 9.7 g/dL Critically low 12.0-16.0 [facility] Comment on above: Performed By: #### C BC #### [facility] [address] [place] [address] Dr. Ember Teague IG # 0.01 10e3/ul Normal 0.00-0.03 [facility] Comment on above: Performed By: #### C BC #### [facility] [address] [place] [address] Dr. Ember Teague IG % 0.2 % Normal 0.0-0.5 [facility] Comment on above: Performed By: #### C BC #### [facility] [address] [place] [address] Dr. Ember Teague LYMPH # 1.9 103/ul Normal 1.2-3.8 [facility] Comment on above: Performed By: #### C BC #### [facility] [address] [place] [address] Dr. Ember Teague Lymphocytes/100 WBC (Bld) 32.2 % Normal 20.5-60.0 [facility] Comment on above: Performed By: #### C BC #### [facility] [address] [place] [address] Dr. Ember Teague MANUAL DIFF REQ NO Normal [facility] Comment on above: Performed By: #### C BC #### [facility] [address] [place] [address] Dr. Ember Teague MCH (RBC) [Entitic mass] 31.4 pg Normal 26.7-34.0 [facility] Comment on above: Performed By: #### C BC #### [facility] [address] [place] [address] Dr. Ember Teague MCHC (RBC) [Mass/Vol] 34.8 g/dL Normal 29.9-35.2 [facility] Comment on above: Performed By: #### C BC #### [facility] [address] [place] [address] Dr. Ember Teague MCV (RBC) [Entitic vol] 90.3 fL Normal 81.0-99.0 [facility] Comment on above: Performed By: #### C BC #### [facility] [address] [place] [address] Dr. Ember Teague MONO # 0.6 103/ul Normal 0.3-0.8 [facility] Comment on above: Performed By: #### C BC #### [facility] [address] [place] [address] Dr. Ember Teague Monocytes/100 WBC (Bld) 9.8 % Normal 1.7-12.0 [facility] Comment on above: Performed By: #### C BC #### [facility] [address] [place] [address] Dr. Ember Teague NEUT # 3.2 103/ul Normal 1.4-6.5 [facility] Comment on above: Performed By: #### C BC #### [facility] [address] [place] [address] Dr. Ember Teague Neutrophils/100 WBC (Bld) 53.8 % Normal 43.0-75.0 [facility] Comment on above: Performed By: #### C BC #### [facility] [address] [place] [address] Dr. Ember Teague Platelet mean volume (Bld) [Entitic vol] 10.0 fL Normal 9.5-13.5 [facility] Comment on above: Performed By: #### C BC #### [facility] [address] [place] [address] Dr. Ember Teague PLT 194 103/ul Normal 150-450 [facility] Comment on above: Performed By: #### C BC #### [facility] [address] [place] [address] Dr. Ember Teague RBC 3.09 106/ul Critically low 4.20-5.40 [facility] Comment on above: Performed By: #### C BC #### [facility] [address] [place] [address] Dr. Ember Teague WBC 6.0 103/ul Normal 4.0-11.0 [facility] Comment on above: Performed By: #### C BC #### [facility] [address] [place] [address] Dr. Ember Teague PTH INTACTon 06-26-2022 PTH, Intact 39 pg/mL Normal 15-65 [facility] Comment on above: Performed By: #### P THINT #### [facility] [address] [place] [address] Dr. Ember Teague CBC AUTO DIFFon 06-25-2022 BASO # 0.1 103/ul Normal 0.0-0.1 [facility] Comment on above: Performed By: #### C VDTBH #### [facility] [address] [place] [address] Dr. Ember Teague Basophils/100 WBC (Bld) 0.6 % Normal 0.2-2.0 [facility] Comment on above: Performed By: #### C VDTBH #### [facility] [address] [place] [address] Dr. Ember Teague EO # 0.2 103/ul Normal 0.0-0.7 [facility] Comment on above: Performed By: #### C VDTBH #### [facility] [address] [place] [address] Dr. Ember Teague Eosinophils/100 WBC (Bld) 3.0 % Normal 0.9-7.0 [facility] Comment on above: Performed By: #### C VDTBH #### [facility] [address] [place] [address] Dr. Ember Teague Erythrocyte distribution width (RBC) [Ratio] 14.2 % Normal 11.0-15.0 [facility] Comment on above: Performed By: #### C VDTBH #### [facility] [address] [place] [address] Dr. Ember Teague Hematocrit (Bld) [Volume fraction] 30.9 % Critically low 36.0-48.0 [facility] Comment on above: Performed By: #### C VDTBH #### [facility] [address] [place] [address] Dr. Ember Teague Hemoglobin (Bld) [Mass/Vol] 10.6 g/dL Critically low 12.0-16.0 [facility] Comment on above: Performed By: #### C VDTBH #### [facility] [address] [place] [address] Dr. Ember Teague IG # 0.04 10e3/ul Critically high 0.00-0.03 [facility] Comment on above: Performed By: #### C VDTBH #### [facility] [address] [place] [address] Dr. Ember Teague IG % 0.5 % Normal 0.0-0.5 [facility] Comment on above: Performed By: #### C VDTBH #### [facility] [address] [place] [address] Dr. Ember Teague LYMPH # 2.2 103/ul Normal 1.2-3.8 [facility] Comment on above: Performed By: #### C VDTBH #### [facility] [address] [place] [address] Dr. Ember Teague Lymphocytes/100 WBC (Bld) 27.0 % Normal 20.5-60.0 [facility] Comment on above: Performed By: #### C VDTBH #### [facility] Laboratory [address] [place] [address] Dr. Ember Teague MANUAL DIFF REQ NO Normal [facility] Comment on above: Performed By: #### C VDTBH #### [facility] Laboratory [address] [place] [address] Dr. Ember Teague MCH (RBC) [Entitic mass] 31.2 pg Normal 26.7-34.0 [facility] Comment on above: Performed By: #### C VDTBH #### [facility] Laboratory [address] [place] [address] Dr. Ember Teague MCHC (RBC) [Mass/Vol] 34.3 g/dL Normal 29.9-35.2 [facility] Comment on above: Performed By: #### C VDTBH #### [facility] Laboratory [address] [place] [address] Dr. Ember Teague MCV (RBC) [Entitic vol] 90.9 fL Normal 81.0-99.0 [facility] Comment on above: Performed By: #### C VDTBH #### [facility] Laboratory [address] [place] [address] Dr. Ember Teague MONO # 0.7 103/ul Normal 0.3-0.8 [facility] Comment on above: Performed By: #### C VDTBH #### [facility] Laboratory [address] [place] [address] Dr. Ember Teague Monocytes/100 WBC (Bld) 9.2 % Normal 1.7-12.0 [facility] Comment on above: Performed By: #### C VDTBH #### [facility] Laboratory [address] [place] [address] Dr. Ember Teague NEUT # 4.8 103/ul Normal 1.4-6.5 [facility] Comment on above: Performed By: #### C VDTBH #### [facility] Laboratory [address] [place] [address] Dr. Ember Teague Neutrophils/100 WBC (Bld) 59.7 % Normal 43.0-75.0 [facility] Comment on above: Performed By: #### C VDTBH #### [facility] Laboratory [address] [place] [address] Dr. Ember Teague Platelet mean volume (Bld) [Entitic vol] 9.3 fL Critically low 9.5-13.5 [facility] Comment on above: Performed By: #### C VDTBH #### [facility] Laboratory [address] [place] [address] Dr. Ember Teague PLT 227 103/ul Normal 150-450 [facility] Comment on above: Performed By: #### C VDTBH #### [facility] Laboratory [address] [address] [address] Ember Teague RBC 3.40 106/ul Critically low 4.20-5.40 [facility] Comment on above: Performed By: #### C VDTBH #### [facility] Laboratory [address] [address] [address] Ember Teague WBC 8.0 103/ul Normal 4.0-11.0 [facility] Comment on above: Performed By: #### C VDTB #### [facility] Laboratory [address] [address] [address] Ember Teague MRI LSPINE WO CONon [...] by: YANET Spencer: 2022-06-25 08:45 Normal [facility] RENAL FUNCTION PANELon 06-25 Albumin [Mass/Vol] 3.9 g/dL Normal 3.4-5.0 [facility] Comment on above: Performed By: #### P THINT #### [facility] Laboratory [address] [address] [address] Embre Teauge Calcium [Mass/Vol] 9.5 mg/dL Normal 8.5-10.1 [facility] Comment on above: Performed By: #### P THINT #### [facility] Laboratory [address] [address] [address] Ember Teague Chloride [Moles/Vol] 102 mmol/L Normal 98-107 [facility] Comment on above: Performed By: #### P THINT #### [facility] [address] [address] [address] Ember Teague CO2 [Moles/Vol] 23.8 mmol/L Normal 21.0-32.0 [facility] Comment on above: Performed By: #### P THINT #### [facility] Laboratory [address] [address] [address] Ember Teague Creatinine [Mass/Vol] 1.75 mg/dL Critically high 0.55-1.02 [facility] Comment on above: Performed By: #### P THINT #### [facility] [address] [address] [address] Ember Teague EGFR-AF SYRIAN 34 mL/min/1.73m2 Critically low >=60 [facility] Comment on above: Performed By: #### P THINT #### [facility] [address] [address] [address] Ember Teague EGFR-NON AF SYRIAN 28 mL/min/1.73m2 Critically low >=60 [facility] Comment on above: Performed By: #### P THINT #### [facility] [address] [address] [address] Ember Teague Glucose [Mass/Vol] 199 mg/dL Critically high 74-106 [facility] Comment on above: Performed By: #### P THINT #### [facility] [address] [address] [address] Ember Teague Phosphate [Mass/Vol] 4.3 mg/dL Normal 2.6-4.7 [facility] Comment on above: Performed By: #### P THINT #### [facility] [address] [place] [address] Dr. Ember Teague Potassium [Moles/Vol] 4.9 mmol/L Normal 3.5-5.1 [facility] Comment on above: Performed By: #### P THINT #### [facility] [address] [place] [address] Dr. Ember Teague Sodium [Moles/Vol] 135 mmol/L Critically low 136-145 [facility] Comment on above: Performed By: #### P THINT #### [facility] Laboratory [address] [place] [address] Dr. Ember Teague Urea nitrogen [Mass/Vol] 34.0 mg/dL Critically high 7.0-18.0 [facility] Comment on above: Performed By: #### P THINT #### [facility] [address] [place] [address] Dr. Ember Teague VITAMIN D 25 OHon 06-25-2022 VIT D 25-OH 40.6 ng/mL Normal [facility] Comment on above: Performed By: #### P THINT #### [facility] [address] [place] [address] Dr. Ember Teague VIT D RANGES SEE BELOW Normal [facility] Comment on above: Result Comment: <20 ng/mL Vit D deficient 20 - <30 ng/mL Vit D insufficient 30 - 100 ng/mL Vit D sufficient >100 ng/mL Potential Toxicity Performed By: #### P THINT #### [facility] [address] [place] [address] Dr. Ember Teague [facility] SARS-CoV-2 (COVID-19) RNA ALEXX+probe Ql (Unsp spec) Not detected Normal NOT DETECTED [facility] Comment on above: Result Comment: This test is not yet approved or cleared by the [place] FDA. When there are no FDA-approved or cleared tests available, and other criteria are met, FDA can make tests available under an emergency access mechanism called an Emergency Use Authorization (EUA). The EUA for this test is supported by the Constitutional Law Professor of Health and Human Service's (HHS's) declaration [...] consistent with SARS-CoV-2. Performed By: #### C [facility] #### [facility] Laboratory [address] [place] [address] LSPINE WO CONon [...] YANET HUERTA Date: 2022-06-01 18:02 Normal [facility] XR LSPINE MIN 4 VIEWSon [...] YANET HUERTA Date: 2022-05-21 15:25 Normal [facility] PTH INTACTon 05-03-2022 PTH, Intact 60 pg/mL Normal 15-65 [facility] Comment on above: Performed By: #### C VDTB #### [facility] Laboratory [address] [place] [address] Dr. Ember Teague VIT D 25-OH [facility]ABC[facility]on 2021 Vitamin D, 25-Hydroxy 26.1 ng/mL Critically low 30.0-100.0 [facility] Comment on above: Result Comment: Sara min D deficiency has been defined by the [place] of [employer] and an Endocrine Society practice guideline as a level of serum 25-OH vitamin D less than 20 ng/mL (1,2). The Endocrine Society went on to further define vitamin D insufficiency as a level between 21 and 29 ng/mL (2). 1. IOM ([place] of [employer]). 2010. Dietary reference intakes for calcium and D. [place]: The National Academies Press. 2. Sherice MF, Wendy WILSON, Huan ZHONG, et al. Evaluation, treatment, and prevention of vitamin D deficiency: an Endocrine Society clinical practice guideline. JCEM. 2010; 96(7):1911-30. Performed By: #### R ENAL #### [facility] [address] [place] [address] Dr. Ember Teague FERRITINon 05-02-2022 Ferritin [Mass/Vol] 590.0 ng/mL Critically high 8.0-252.0 [facility] Comment on above: Performed By: #### R ENAL #### [facility] [address] [place] [address] Dr. Ember Teague HEMOGRAM AND PLATELon 2021 Hematocrit (Bld) [Volume fraction] 28.4 % Critically low 36.0-48.0 [facility] Comment on above: Performed By: #### C VDTBH #### [facility] [address] [place] [address] Dr. Ember Teague Hemoglobin (Bld) [Mass/Vol] 9.6 g/dL Critically low 12.0-16.0 [facility] Comment on above: Performed By: #### C VDTBH #### [facility] [address] [place] [address] Dr. Ember Teague MCH (RBC) [Entitic mass] 31.0 pg Normal 26.7-34.0 [facility] Comment on above: Performed By: #### C VDTBH #### [facility] [address] [place] [address] Dr. Ember Teague MCHC (RBC) [Mass/Vol] 33.8 g/dL Normal 29.9-35.2 [facility] Comment on above: Performed By: #### C VDTBH #### [facility] [address] [place] [address] Dr. Ember Teague MCV (RBC) [Entitic vol] 91.6 fL Normal 81.0-99.0 [facility] Comment on above: Performed By: #### C VDTBH #### [facility] [address] [place] [address] Dr. Ember Teague PLT 189 103/ul Normal 150-450 [facility] Comment on above: Performed By: #### C VDTBH #### [facility] [address] [address] [address] Ember Teague RBC 3.10 106/ul Critically low 4.20-5.40 [facility] Comment on above: Performed By: #### C VDTBH #### [facility] [address] [address] [address] Ember Teague WBC 6.2 103/ul Normal 4.0-11.0 [facility] Comment on above: Performed By: #### C VDTBH #### [facility] [address] [address] [address] Ember Teague IRON AND TIBCon 05-02-2022 % SATURATION 34.3 % Normal [facility] Comment on above: Performed By: #### R ENAL #### [facility] [address] [place] [address] Dr. Ember Teague Iron [Mass/Vol] 69.0 ug/dL Normal 50.0-170.0 [facility] Comment on above: Performed By: #### R ENAL #### [facility] [address] [address] [address] Ember Teague TIBC DIRECT 201.0 ug/dL Critically low 250.0-450.0 [facility] Comment on above: Performed By: #### R ENAL #### [facility] [address] [address] [address] Ember Teague MAGNESIUMon 05-02-2022 Magnesium [Mass/Vol] 1.7 mg/dL Critically low 1.8-2.4 [facility] Comment on above: Performed By: #### C VDTBH #### [facility] [address] [address] [address] Ember Teague RENAL FUNCTION PANELon 05-02 Albumin [Mass/Vol] 3.6 g/dL Normal 3.4-5.0 [facility] Comment on above: Performed By: #### C VDTBH #### [facility] [address] [place] [address] Dr. Ember Teague Calcium [Mass/Vol] 9.2 mg/dL Normal 8.5-10.1 [facility] Comment on above: Performed By: #### C VDTBH #### [facility] [address] [address] [address] Ember Teague Chloride [Moles/Vol] 107 mmol/L Normal 98-107 [facility] Comment on above: Performed By: #### C VDTBH #### [facility] [address] [address] [address] Ember Teague CO2 [Moles/Vol] 21.2 mmol/L Normal 21.0-32.0 [facility] Comment on above: Performed By: #### C VDTBH #### [facility] Laboratory [address] [place] [address] Dr. Ember Teague Creatinine [Mass/Vol] 1.75 mg/dL Critically high 0.55-1.02 [facility] Comment on above: Performed By: #### C VDTBH #### [facility] Laboratory [address] [place] [address] Dr. Ember Teague EGFR-AF SYRIAN 34 mL/min/1.73m2 Critically low >=60 [facility] Comment on above: Performed By: #### C VDTBH #### [facility] [address] [place] [address] Dr. Ember Teague EGFR-NON AF SYRIAN 28 mL/min/1.73m2 Critically low >=60 [facility] Comment on above: Performed By: #### C VDTBH #### [facility] [address] [place] [address] Dr. Ember Teague Glucose [Mass/Vol] 193 mg/dL Critically high 74-106 [facility] Comment on above: Performed By: #### C VDTBH #### [facility] [address] [address] [address] Ember Teague Phosphate [Mass/Vol] 4.2 mg/dL Normal 2.6-4.7 [facility] Comment on above: Performed By: #### C VDTBH #### [facility] [address] [place] [address] Dr. Ember Teague Potassium [Moles/Vol] 5.1 mmol/L Normal 3.5-5.1 [facility] Comment on above: Performed By: #### C VDTBH #### [facility] [address] [place] [address] Dr. Ember Teague Sodium [Moles/Vol] 139 mmol/L Normal 136-145 [facility] Comment on above: Performed By: #### C VDTBH #### [facility] [address] [place] [address] Dr. Ember Teague Urea nitrogen [Mass/Vol] 34.0 mg/dL Critically high 7.0-18.0 [facility] Comment on above: Performed By: #### C VDTBH #### [facility] [address] [place] [address] Dr. Ember Teague UA RANDOM W/MICROSCOPICon BACTERIA SMALL Abnormal NONE SEEN [facility] Comment on above: Performed By: #### C VDTBH #### [facility] [address] [place] [address] Dr. Ember Teague Bilirubin Ql (U) Negative Normal NEGATIVE [facility] Comment on above: Performed By: #### C VDTBH #### [facility] [address] [place] [address] Dr. Ember Teague CAST NONE SEEN Normal NONE SEEN [facility] Comment on above: Performed By: #### C VDTBH #### [facility] [address] [place] [address] Dr. Ember Teague Clarity (U) CLEAR Normal CLEAR [facility] Comment on above: Performed By: #### C VDTBH #### [facility] [address] [place] [address] Dr. Ember Teague Color (U) LT. YELLOW Normal YELLOW [facility] Comment on above: Performed By: #### C VDTBH #### [facility] [address] [place] [address] Dr. Ember Teague Crystals LM Nom (Urine sed) NONE SEEN Normal NONE SEEN [facility] Comment on above: Performed By: #### C VDTBH #### [facility] [address] [address] [address] Ember Teague Epithelial cells LM Ql (Urine sed) MODERATE Abnormal NONE SEEN /RARE [facility] Comment on above: Performed By: #### C VDTBH #### [facility] [address] [place] [address] Dr. Ember Teague Glucose Ql (U) Negative Normal NEGATIVE The [facility] Comment on above: Performed By: #### C VDTBH #### [facility] [address] [address] [address] Ember Teague Hemoglobin Ql (U) Negative Normal NEGATIVE [facility] Comment on above: Performed By: #### C VDTBH #### [facility] [address] [place] [address] Dr. Emebr Teague Ketones Ql (U) Negative Normal NEGATIVE The [facility] Comment on above: Performed By: #### C VDTBH #### [facility] [address] [place] [address] Dr. Ember Teague LEUKOCYTES TRACE Abnormal NEGATIVE [facility] Comment on above: Performed By: #### C VDTBH #### [facility] [address] [place] [address] Dr. Ember Teague MUCOUS NONE SEEN Normal NONE SEEN [facility] Comment on above: Performed By: #### C VDTBH #### [facility] [address] [place] [address] Dr. Ember Teague Nitrite Ql (U) Negative Normal NEGATIVE The [facility] Comment on above: Performed By: #### C VDTBH #### [facility] [address] [place] [address] Dr. Ember Teague pH (U) 5.0 [pH] Normal 5-9 [facility] Comment on above: Performed By: #### C VDTBH #### [facility] [address] [place] [address] Dr. Ember Teague RBC NONE SEEN Abnormal 0-2 [facility] Comment on above: Performed By: #### C VDTBH #### [facility] [address] [place] [address] Dr. Ember Teague SPEC GRAVITY 1.015 Normal 1.005-<=1.025 [facility] Comment on above: Performed By: #### C VDTBH #### [facility] [address] [place] [address] Dr. Ember Teague UA PROTEIN TRACE Normal NEGATIVE/ TRACE [facility] Comment on above: Performed By: #### C VDTBH #### [facility] [address] [place] [address] Dr. Ember Teague Urobilinogen Qn (U) 0.2 {Esau'U}/dL Normal 0.2 - 1. 0 [facility] Comment on above: Performed By: #### C VDTBH #### [facility] [address] [place] [address] Dr. Ember Teague WBC 0-2 Abnormal NONE SEEN [facility] Comment on above: Performed By: #### C VDTBH #### [facility] [address] [place] [address] Dr. Ember Teague URIC ACID SERUMon 05-02-2022 Urate [Mass/Vol] 4.4 mg/dL Normal 2.6-6.0 [facility] Comment on above: Performed By: #### C BC #### [facility] [address] [place] [address] Dr. Ember Teague URINE T PROTEIN CREAT RATIOo n 05-02-2022 Protein (U) [Mass/Vol] 33.7 mg/dL Critically high <=12.0 [facility] Comment on above: Performed By: #### C VDTBH #### [facility] [address] [place] [address] Dr. Ember Teague UR PROT CREAT RAT 0.69 Normal [facility] Comment on above: Performed By: #### C VDTBH #### [facility] [address] [place] [address] Dr. Ember Teague URINE CREAT 48.93 mg/dL Normal 20.00-300.00 [facility] Comment on above: Performed By: #### C VDTBH #### [facility] [address] [address] [address] Ember Teague Vital Signs Date Time Vital Sign Value Performing Clinician Facility 11-18-2023 10:00-0500 Body height 168.91 cm Ron Dore[facility] Other [facility] 11-18-2023 10:00-0500 Body mass index (BMI) [Ratio] 29.85 kg/m2 Ron Doreen Other [facility] 11-18-2023 10:00-0500 Body temperature 97.3 [degF] Ron Doreen Other [facility] 11-18-2023 10:00-0500 Body weight 85.19 kg Ron Doreen Other [facility] 11-18-2023 10:00-0500 Diastolic blood pressure 79 mm[Hg] Ron Doreen Other [facility] 11-18-2023 10:00-0500 Respiratory rate 18 /min Ron Doreen Other [facility] 11-18-2023 10:00-0500 SaO2% (BldA) [Mass fraction] 98 % Ron Doreen Other [facility] 11-18-2023 10:00-0500 Systolic blood pressure 149 mm[Hg] Ron Doreen Other [facility] 11-04-2023 11:00-0500 Body height 168.91 cm Ron Doreen Other [facility] 11-04-2023 11:00-0500 Body mass index (BMI) [Ratio] 30.17 kg/m2 Ron Doreen Other [facility] 11-04-2023 11:00-0500 Body temperature 97.6 [degF] Ron Doreen Other [facility] 11-04-2023 11:00-0500 Body weight 86.09 kg Ron Doreen Other [facility] 11-04-2023 11:00-0500 Diastolic blood pressure 76 mm[Hg] Ron Doreen Other [facility] 11-04-2023 11:00-0500 Respiratory rate 18 /min Ron Doreen Other [facility] 11-04-2023 11:00-0500 SaO2% (BldA) [Mass fraction] 98 % Ron Doreen Other [facility] 11-04-2023 11:00-0500 Systolic blood pressure 153 mm[Hg] Ron Doreen Other [facility] 10-15-2023 13:00-0500 Body height 168.91 cm Ron Doreen Other [facility] 10-15-2023 13:00-0500 Body mass index (BMI) [Ratio] 29.82 kg/m2 Ron Doreen Other [facility] 10-15-2023 13:00-0500 Body temperature 97.5 [degF] Ron Doreen Other [facility] 10-15-2023 13:00-0500 Body weight 85.1 kg Ron Doreen Other [facility] 10-15-2023 13:00-0500 Diastolic blood pressure 68 mm[Hg] Ron Doreen Other [facility] 10-15-2023 13:00-0500 Respiratory rate 18 /min Ron Doreen Other [facility] 10-15-2023 13:00-0500 SaO2% (BldA) [Mass fraction] 98 % Ron Doreen Other [facility] 10-15-2023 13:00-0500 Systolic blood pressure 113 mm[Hg] Ron Doreen Other [facility] 08-27-2023 09:40-0500 Body height 168.91 cm [facility] 08-27-2023 09:40-0500 Body mass index (BMI) [Ratio] 30.2 kg/m2 [facility] 08-27-2023 09:40-0500 Body temperature 96.7 [degF] [facility]scarduc [facility] Other [facility] 08-27-2023 09:40-0500 Body weight 86.18 kg Óscarduc Blinks Other [facility] 08-27-2023 09:40-0500 Diastolic blood pressure 72 mm[Hg] Mary Anne Ackerman Other [facility] 08-27-2023 09:40-0500 Respiratory rate 18 /min Mary Anne Ackerman Other [facility] 08-27-2023 09:40-0500 SaO2% (BldA) [Mass fraction] 98 % Mary Anne Ackerman Other [facility] 08-27-2023 09:40-0500 Systolic blood pressure 153 mm[Hg] Mary Anne Ackerman Other [facility] 08-15-2023 10:20-0500 Body height 168.91 cm Ron Doreen Other [facility] 08-15-2023 10:20-0500 Body mass index (BMI) [Ratio] 30.2 kg/m2 Ron Doreen Other [facility] 08-15-2023 10:20-0500 Body temperature 97.1 [degF] Ron Doreen Other [facility] 08-15-2023 10:20-0500 Body weight 86.18 kg Ron Doreen Other [facility] 08-15-2023 10:20-0500 Diastolic blood pressure 79 mm[Hg] Ron Doreen Other [facility] 08-15-2023 10:20-0500 Respiratory rate 18 /min Ron Doreen Other [facility] 08-15-2023 10:20-0500 SaO2% (BldA) [Mass fraction] 98 % Ron Doreen Other [facility] 08-15-2023 10:20-0500 Systolic blood pressure 164 mm[Hg] Orn Doreen Other [facility] 08-13-2023 15:40-0500 Body height 168.91 cm Ron Doreen Other [facility] 08-13-2023 15:40-0500 Body mass index (BMI) [Ratio] 30.24 kg/m2 Ron Doreen Other [facility] 08-13-2023 15:40-0500 Body temperature 97.2 [degF] Ron Doreen Other [facility] 08-13-2023 15:40-0500 Body weight 86.27 kg Ron Doreen Other [facility] 08-13-2023 15:40-0500 Diastolic blood pressure 79 mm[Hg] Ron Doreen Other [facility] 08-13-2023 15:40-0500 Respiratory rate 18 /min Ron Doreen Other [facility] 08-13-2023 15:40-0500 SaO2% (BldA) [Mass fraction] 98 % Ron Doreen Other [facility] 08-13-2023 15:40-0500 Systolic blood pressure 186 mm[Hg] Ron Doreen Other [facility] 08-01-2023 13:00-0400 Body height 168.91 cm Ron Doreen Other [facility] 08-01-2023 13:00-0400 Body mass index (BMI) [Ratio] 30.55 kg/m2 Ron Doreen Other [facility] 08-01-2023 13:00-0400 Body temperature 97.8 [degF] Ron Doreen Other [facility] 08-01-2023 13:00-0400 Body weight 87.18 kg Ron Doreen Other [facility] 08-01-2023 13:00-0400 Diastolic blood pressure 72 mm[Hg] Ron Droeen Other [facility] 08-01-2023 13:00-0400 Respiratory rate 18 /min Ron Doreen Other [facility] 08-01-2023 13:00-0400 SaO2% (BldA) [Mass fraction] 98 % Ron Doreen Other [facility] 08-01-2023 13:00-0400 Systolic blood pressure 160 mm[Hg] Ron Doreen Other [facility] 06-24-2023 11:40-0400 Body height 168.91 cm Ron Doreen Other [facility] 06-24-2023 11:40-0400 Body mass index (BMI) [Ratio] 29.89 kg/m2 Ron Doreen Other [facility] 06-24-2023 11:40-0400 Body temperature 97.3 [degF] Ron Doreen Other [facility] 06-24-2023 11:40-0400 Body weight 85.28 kg Ron Doreen Other [facility] 06-24-2023 11:40-0400 Diastolic blood pressure 75 mm[Hg] Ron Doreen Other [facility] 06-24-2023 11:40-0400 Respiratory rate 18 /min Ron Doreen Other [facility] 06-24-2023 11:40-0400 SaO2% (BldA) [Mass fraction] 99 % Ron Doreen Other [facility] 06-24-2023 11:40-0400 Systolic blood pressure 129 mm[Hg] Ron Doreen Other [facility] 06-06-2023 15:20-0400 Body height 168.91 cm Ron Doreen Other [facility] 06-06-2023 15:20-0400 Body mass index (BMI) [Ratio] 29.92 kg/m2 Ron Doreen Other [facility] 06-06-2023 15:20-0400 Body temperature 96.5 [degF] Ron Doreen Other [facility] 06-06-2023 15:20-0400 Body weight 85.37 kg Ron Doreen Other [facility] 06-06-2023 15:20-0400 Diastolic blood pressure 49 mm[Hg] Ron Doreen Other [facility] 06-06-2023 15:20-0400 Respiratory rate 18 /min Ron Doreen Other [facility] 06-06-2023 15:20-0400 SaO2% (BldA) [Mass fraction] 99 % Ron Doreen Other [facility] 06-06-2023 15:20-0400 Systolic blood pressure 128 mm[Hg] Ron Doreen Other [facility] 04-30-2023 11:40-0400 Body height 168.91 cm Ron Doreen Other [facility] 04-30-2023 11:40-0400 Body mass index (BMI) [Ratio] 30.52 kg/m2 Ron Doreen Other [facility] 04-30-2023 11:40-0400 Body temperature 96.9 [degF] Ron Droeen Other [facility] 04-30-2023 11:40-0400 Body weight 87.09 kg Ron Doreen Other [facility] 04-30-2023 11:40-0400 Diastolic blood pressure 80 mm[Hg] Ron Doreen Other [facility] 04-30-2023 11:40-0400 Respiratory rate 18 /min Ron Doreen Other [facility] 04-30-2023 11:40-0400 SaO2% (BldA) [Mass fraction] 98 % Ron Doreen Other [facility] 04-30-2023 11:40-0400 Systolic blood pressure 150 mm[Hg] Ron Doreen Other [facility] 04-06-2023 09:00-0400 Body height 168.91 cm Ron Odreen Other [facility] 04-06-2023 09:00-0400 Body mass index (BMI) [Ratio] 30.36 kg/m2 Ron Doreen Other [facility] 04-06-2023 09:00-0400 Body weight 86.64 kg Ron Doreen Other [facility] 04-06-2023 09:00-0400 Diastolic blood pressure 54 mm[Hg] Ron Doreen Other [facility] 04-06-2023 09:00-0400 Respiratory rate 18 /min Ron Doreen Other [facility] 04-06-2023 09:00-0400 SaO2% (BldA) [Mass fraction] 98 % Ron Doreen Other [facility] 04-06-2023 09:00-0400 Systolic blood pressure 144 mm[Hg] Ron Doreen Other [facility] 04-02-2023 14:40-0400 Body height 168.91 cm Ron Doreen Other [facility] 04-02-2023 14:40-0400 Body mass index (BMI) [Ratio] 30.55 kg/m2 Ron Doreen Other [facility] 04-02-2023 14:40-0400 Body temperature 97 [degF] Ron Doreen Other [facility] 04-02-2023 14:40-0400 Body weight 87.18 kg Ron Doreen Other [facility] 04-02-2023 14:40-0400 Diastolic blood pressure 76 mm[Hg] Ron Doreen Other [facility] 04-02-2023 14:40-0400 Respiratory rate 18 /min Ron Doreen Other [facility] 04-02-2023 14:40-0400 SaO2% (BldA) [Mass fraction] 98 % Ron Doreen Other [facility] 04-02-2023 14:40-0400 Systolic blood pressure 183 mm[Hg] Ron Doreen Other [facility] 03-07-2023 09:20-0400 Body height 168.91 cm Ron Doreen Other [facility] 03-07-2023 09:20-0400 Body mass index (BMI) [Ratio] 30.52 kg/m2 Ron Doreen Other [facility] 03-07-2023 09:20-0400 Body temperature 97.1 [degF] Ron Doreen Other [facility] 03-07-2023 09:20-0400 Body weight 87.09 kg Ron Doreen Other [facility] 03-07-2023 09:20-0400 Diastolic blood pressure 72 mm[Hg] Ron Doreen Other [facility] 03-07-2023 09:20-0400 Respiratory rate 18 /min Ron Doreen Other [facility] 03-07-2023 09:20-0400 SaO2% (BldA) [Mass fraction] 97 % Ron Doreen Other [facility] 03-07-2023 09:20-0400 Systolic blood pressure 130 mm[Hg] Ron Doreen Other [facility] 12-20-2022 13:20-0400 Body height 168.91 cm Ron Doreen Other [facility] 12-20-2022 13:20-0400 Body mass index (BMI) [Ratio] 30.68 kg/m2 Ron Doreen Other [facility] 12-20-2022 13:20-0400 Body temperature 97.1 [degF] Ron Doreen Other [facility] 12-20-2022 13:20-0400 Body weight 87.54 kg Ron Doreen Other [facility] 12-20-2022 13:20-0400 Diastolic blood pressure 72 mm[Hg] Ron Doreen Other [facility] 12-20-2022 13:20-0400 Respiratory rate 18 /min Ron Doreen Other [facility] 12-20-2022 13:20-0400 SaO2% (BldA) [Mass fraction] 99 % Ron Doreen Other [facility] 12-20-2022 13:20-0400 Systolic blood pressure 139 mm[Hg] Ron Doreen Other [facility] 11-05-2022 14:00-0500 Body height 168.91 cm Ron Doreen Other [facility] 11-05-2022 14:00-0500 Body mass index (BMI) [Ratio] 30.59 kg/m2 Ron Doreen Other [facility] 11-05-2022 14:00-0500 Body temperature 96.8 [degF] Ron Doreen Other [facility] 11-05-2022 14:00-0500 Body weight 87.27 kg Ron Doreen Other [facility] 11-05-2022 14:00-0500 Diastolic blood pressure 72 mm[Hg] Ron Doreen Other [facility] 11-05-2022 14:00-0500 Respiratory rate 18 /min Ron Doreen Other [facility] 11-05-2022 14:00-0500 SaO2% (BldA) [Mass fraction] 98 % Ron Doreen Other [facility] 11-05-2022 14:00-0500 Systolic blood pressure 157 mm[Hg] Ron Doreen Other [facility] 09-27-2022 16:00-0500 Body height 168.91 cm Jana Monson Other [facility] 09-27-2022 16:00-0500 Body mass index (BMI) [Ratio] 30.55 kg/m2 Jana Monson Other [facility] 09-27-2022 16:00-0500 Body temperature 96.8 [degF] Jana Monson Other [facility] 09-27-2022 16:00-0500 Body weight 87.18 kg Jana Monson Other [facility] 09-27-2022 16:00-0500 Diastolic blood pressure 73 mm[Hg] Jana Monson Other [facility] 09-27-2022 16:00-0500 Respiratory rate 18 /min Jana Monson Other [facility] 09-27-2022 16:00-0500 SaO2% (BldA) [Mass fraction] 98 % Jana Monson Other [facility] 09-27-2022 16:00-0500 Systolic blood pressure 159 mm[Hg] Jana Monson Other [facility] 08-22-2022 12:00-0500 Body height 168.91 cm Ron Doreen Other [facility] 08-22-2022 12:00-0500 Body mass index (BMI) [Ratio] 30.65 kg/m2 Ron Doreen Other [facility] 08-22-2022 12:00-0500 Body temperature 96.9 [degF] Ron Doreen Other [facility] 08-22-2022 12:00-0500 Body weight 87.45 kg Ron Doreen Other [facility] 08-22-2022 12:00-0500 Diastolic blood pressure 75 mm[Hg] Ron Doreen Other [facility] 08-22-2022 12:00-0500 Respiratory rate 18 /min Ron Doreen Other [facility] 08-22-2022 12:00-0500 SaO2% (BldA) [Mass fraction] 96 % Ron Doreen Other [facility] 08-22-2022 12:00-0500 Systolic blood pressure 121 mm[Hg] Ron Doreen Other [facility] 05-08-2022 10:20-0400 Body height 168.91 cm Ron Doreen Other [facility] 05-08-2022 10:20-0400 Body mass index (BMI) [Ratio] 31.54 kg/m2 Ron Doreen Other [facility] 05-08-2022 10:20-0400 Body temperature 97.6 [degF] Ron Doreen Other [facility] 05-08-2022 10:20-0400 Body weight 89.99 kg Ron Doreen Other [facility] 05-08-2022 10:20-0400 Diastolic blood pressure 68 mm[Hg] Ron Doreen Other [facility] 05-08-2022 10:20-0400 Respiratory rate 18 /min Ron Doreen Other [facility] 05-08-2022 10:20-0400 SaO2% (BldA) [Mass fraction] 98 % Ron Doreen Other [facility] 05-08-2022 10:20-0400 Systolic blood pressure 131 mm[Hg] Ron Doreen Other [facility] 01-18-2022 10:20-0400 Body height 168.91 cm Ron Doreen Other [facility] 01-18-2022 10:20-0400 Body mass index (BMI) [Ratio] 31 kg/m2 Ron Doreen Other [facility] 01-18-2022 10:20-0400 Body temperature 96.4 [degF] Ron Doreen Other [facility] 01-18-2022 10:20-0400 Body weight 88.45 kg Ron Doreen Other [facility] 01-18-2022 10:20-0400 Diastolic blood pressure 74 mm[Hg] Ron Doreen Other [facility] 01-18-2022 10:20-0400 Respiratory rate 18 /min Ron Doreen Other [facility] 01-18-2022 10:20-0400 SaO2% (BldA) [Mass fraction] 97 % Ron Doreen Other [facility] 01-18-2022 10:20-0400 Systolic blood pressure 170 mm[Hg] Ron Doreen Other [facility] Encounters Encounter Date Encounter Type Care Provider Facility Start: 01-17-2024 End: 01-17-2024 ambulatory THUAN DELVALLE [facility] Start: 01-16-2024 End: 01-16-2024 ambulatory GA CRESPO Not Available Start: 12-21-2023 Refill Luis dominique PA-C Work Phone: [facility] Comment on above: Med Refill Start: 11-28-2023 End: 11-28-2023 ambulatory GREG TINEO Not Available Start: 11-18-2023 End: 11-18-2023 ambulatory Ron Doreen Other [facility] Start: 11-18-2023 Office outpatient visit 15 minutes Ron Doreen [facility] Start: 11-05-2023 End: 11-05-2023 ambulatory GA Josh CRESPO Not Available Start: 11-04-2023 (INJECTION) INJECTION Ron Doreen [facility] Start: 11-04-2023 End: 11-04-2023 ambulatory Ron Doreen Other [facility] Start: 10-22-2023 End: 10-22-2023 ambulatory GA H CRESPO Not Available Start: 10-15-2023 End: 10-15-2023 ambulatory Ron Doreen Other [facility] Start: 10-15-2023 Office outpatient visit 15 minutes Ron Doreen [facility] Start: 10-08-2023 End: 10-08-2023 ambulatory Aziz Bakhous Other [facility] Start: 10-08-2023 Telephone encounter Aziz Bakhous [facility] Start: 09-15-2023 End: 09-15-2023 ambulatory Ron Doreen Other [facility] Start: 09-15-2023 Telephone encounter Ron Doreen [facility] Start: 09-09-2023 End: 09-09-2023 ambulatory Ron Doreen Other [facility] Start: 09-09-2023 Telephone encounter Ron Doreen [facility] Start: 08-27-2023 (INJECTION) INJECTION Aziz Bakhous [facility] Start: 08-27-2023 End: 08-27-2023 ambulatory Aziz Bakhous Other [facility] Start: 08-15-2023 (INJECTION) INJECTION Ron Doreen [facility] Start: 08-15-2023 End: 08-15-2023 ambulatory Ron Doreen Other [facility] Start: 08-13-2023 (INJECTION) INJECTION Ron Doreen [facility] Start: 08-13-2023 End: 08-13-2023 ambulatory Ron Doreen Other [facility] Start: 08-01-2023 End: 08-01-2023 ambulatory Ron Doreen Other [facility] Start: 08-01-2023 Office outpatient visit 15 minutes Ron Doreen [facility] Start: 06-24-2023 End: 06-24-2023 ambulatory Ron Doreen Other [facility] Start: 06-24-2023 Office outpatient visit 10 minutes Ron Doreen [facility] Start: 06-06-2023 End: 06-06-2023 ambulatory Ron Doreen Other [facility] Start: 06-06-2023 Office outpatient visit 15 minutes Ron Doreen [facility] Start: 04-30-2023 End: 04-30-2023 ambulatory Ron Doreen Other [facility] Start: 04-30-2023 Office outpatient visit 15 minutes Ron Doreen [facility] Start: 04-06-2023 (INJECTION) INJECTION Ron Doreen [facility] Start: 04-06-2023 End: 04-06-2023 ambulatory Ron Doreen Other [facility] Start: 04-06-2023 Telephone encounter Ron Doreen [facility] Start: 04-02-2023 End: 04-02-2023 ambulatory Ron Doreen Other [facility] Start: 04-02-2023 Office outpatient visit 15 minutes Ron Doreen [facility] Start: 04-02-2023 Telephone encounter Ron Doreen [facility] Start: 03-07-2023 End: 03-07-2023 ambulatory Ron Doreen Other [facility] Start: 03-07-2023 Office outpatient visit 15 minutes Ron Doreen [facility] Start: 01-22-2023 End: 01-23-2023 ambulatory RON DOREEN Facility:[facility] Start: 12-20-2022 End: 12-20-2022 ambulatory Ron Doreen Other [facility] Start: 12-20-2022 Office outpatient visit 15 minutes Ron Doreen [facility] Start: 12-17-2022 End: 12-18-[address] DHRUV RUBI . Facility:[facility] Start: 12-10-2022 End: 12-11-2022 ambulatory RON DOREEN Facility:[facility] Start: 11-20-2022 End: 11-21-[address] BENI APARICIO Facility:[facility] Start: 11-05-2022 End: 11-05-2022 ambulatory Ron Doreen Other [facility] Start: 11-05-2022 Office outpatient visit 15 minutes Ron Doreen [facility] Start: 10-29-2022 End: 10-30-[address] JANA MONSON Facility:[facility] Start: 10-24-2022 End: 10-24-[address] LILLIAN ACOSTA . Facility:[facility] Start: 10-24-2022 End: 10-25-[address] DHRUV RUBI . Facility:[facility] Start: 09-27-2022 End: 09-27-2022 ambulatory Jana Monson Other [facility] Start: 09-27-2022 Office outpatient visit 15 minutes Jana Iona [facility] Start: 09-18-2022 End: 09-19-2022 ambulatory RON DOREEN Facility:[facility] Start: 09-11-2022 End: 09-11-[address] DHRUV RUBI . Facility:[facility] Start: 08-22-2022 End: 08-22-2022 ambulatory Ron Doreen Other [facility] Start: 08-22-2022 Office outpatient visit 15 minutes Ron Doreen [facility] Start: 08-13-2022 End: 08-14-2022 ambulatory RON DOREEN Facility:[facility] Start: 06-25-2022 End: 06-26-[address] DHRUV RUBI . Facility:[facility] Start: 06-18-2022 End: 06-18-[address] DHRUV RUBI . Facility:[facility] Start: 06-01-2022 End: 06-02-[address] YANET HUERTA Facility:[facility] Start: 05-28-2022 End: 05-28-2022 ambulatory Ron Doreen Other [facility] Start: 05-28-2022 Telephone encounter Ron Doreen [facility] Start: 05-21-2022 End: 05-22-[address] DHRUV RUBI . Facility:[facility] Start: 05-16-2022 End: 05-16-2022 ambulatory Ron Doreen Other [facility] Start: 05-16-2022 Telephone encounter Ron Doreen [facility] Start: 05-10-2022 End: 05-10-2022 ambulatory Ron Doreen Other [facility] Start: 05-10-2022 Telephone encounter Ron Doreen [facility] Start: 05-08-2022 End: 05-08-2022 ambulatory Ron Doreen Other [facility] Start: 05-08-2022 Office outpatient visit 25 minutes Ron Doreen [facility] Start: 05-02-2022 End: 05-03-2022 ambulatory RON DOREEN Facility: Start: 04-24-2022 End: 04-24-2022 ambulatory Mary Anne Mensahs Other [facility] Start: 04-24-2022 Telephone encounter Azduc Shaferhous [facility] Start: 01-18-2022 End: 01-18-2022 ambulatory Ron Doreen Other [facility] Start: 01-18-2022 Office outpatient visit 25 minutes Ron Doreen [facility] Start: 05-21-2017 End: 05-22-2017 Ambulatory DEFAULT PHYSICIAN Facility:[facility] Procedures Date Procedure Procedure Detail Performing [...] 03-19-2024 Adult BMI Screening Adult BMI Screening [facility] Start: 03-19-2024 Tobacco Screening Tobacco Screening [facility] Start: 06-07-2023 COVID-19 Vaccine () COVID-19 Vaccine () [facility] Start: 06-07-2023 Influenza vaccination Influenza Vaccine [facility] Start: 12-28-2021 Depression Screening Depression Screening [facility] Start: 2009 Fall Risk Screening Fall Risk Screening [facility] Start: 1994 Administration of varicella zoster vaccine Zoster (Shingles) Vaccine (1 of 2) [facility] Start: 12-15-1963 DTaP,Tdap and Td Vaccines (1 - Tdap) DTaP,Tdap and Td Vaccines (1 - Tdap) [facility] Start: 1962 Adult BMI Follow Up Plan Adult BMI Follow Up Plan [facility] Start: 1944 Medicare Annual Wellness Visit Medicare Annual Wellness Visit [facility] Immunizations Immunization Date Immunization Notes Care Provider Fa cili 07-18-2020 Seasonal trivalent influenza vaccine, adjuvanted, preservative free Luis Kb PA-C Work Phone: [facility] 07-18-2020 influenza virus vacc ine, unspecified formulation Luis Kb PA-C Work Phone: [facility] 07-22-2019 Seasonal trivalent influenza vaccine, adjuvanted, preservative free Luis Kb PA-C Work Phone: [facility] 07-14-2018 Seasonal trivalent influenza vaccine, adjuvanted, preservative free Luis Kb PA-C Work Phone: [facility] 07-15-2017 pneumococcal conjuga te vaccine, 13 valent Luis Kb PA-C Work Phone: [facility] 07-08-2017 influenza, high dose seasonal, preservative-free Luis Kb PA-C Work Phone: [facility] 07-25-2016 influenza, high dose seasonal, preservative-free Luis Kb PA-C Work Phone: [facility] 07-11-2015 influenza, high dose seasonal, preservative-free Luis Kb PA-C Work Phone: [facility] 07-16-2014 influenza, seasonal, injectable Luis Kb PA-C Work Phone: [facility] 07-10-2013 influenza, seasonal, injectable Luis Kb PA-C Work Phone: [facility] 08-08-2012 influenza virus vacc ine, unspecified formulation [facility]-C [facility] 08-08-2012 pneumococcal polysaccharide vaccine, 23 valent Luis Kb PA-C Work Phone: [facility] [employer] 07-11-2011 influenza virus vacc ine, unspecified formulation Luis Kb PA-C Work Phone: [facility] [employer] [facility] 08-15-2010 influenza virus vacc ine, unspecified formulation Luis Kb PA-C Work Phone: [facility] [employer] [facility] 07-26-2009 influenza virus vacc ine, unspecified formulation Luis Kb PA-C Work Phone: [facility] [employer] 08-04-2008 influenza virus vacc ine, unspecified formulation [facility]b [facility]-C [facility] 08-13-2007 influenza virus vacc ine, unspecified formulation Luis Kb PA-C Work Phone: [facility] [employer] [facility] 08-11-2004 influenza virus vacc ine, unspecified formulation Luis Kb PA-C [facility] 08-09-2003 influenza virus vacc ine, unspecified formulation Luis Kb PA-C [facility] 08-09-2003 pneumococcal polysaccharide vaccine, 23 valent Luis Kb PA-C Work Phone: [facility] [employer] [facility] Payers Date Payer Category Payer Medicare [employer] MEDICARE A ETNA MEDICARE PLAN (HMO) [id number] 2021-Present [phone] [address] [place] [address] [id number] 1960 Medicare [id number] 1944 Unknown [id number] [id number] 1944 Unknown [id number] [id number]3 1944 Unknown [id number] 2.16.840.1.009650.3.579.2.593 1944 Unknown [id number] 2.16.840.1.222964.3.579.2.593 1944 Unknown [id number] 2.16.840.1.012433.3.579.2.593 1944 Unknown [id number] 2.16.840.1.611827.3.579.2.593 1944 Unknown [id number] 2.16.840.1.868124.3.579.2.593 1944 Unknown [id number] 2.16.840.1.588545.3.579.2.593 1944 Unknown [id number] 2.16.840.1.156598.3.579.2.593 1944 Unknown [id number] 2.16.840.1.040108.3.579.2.593 1944 Unknown [id number] 2.16.840.1.625097.3.579.2.593 1944 Unknown [id number] 2.16.840.1.363333.3.579.2.593 1944 Unknown [id number] 2.16.840.1.906486.3.579.2.593 1944 Unknown [id number] 2.16.840.1.748797.3.579.2.593 1944 Unknown [id number] 2.16.840.1.088915.3.579.2.593 1944 Unknown [id number] 2.16.840.1.512791.3.579.2.593 1944 Unknown [id number] 2.16.840.1.661915.3.579.2.1259 1944 Unknown [id number] 2.16.840.1.078492.3.579.2.9 1944 Unknown [id number] 2.16.840.1.378218.3.579.2.9 1944 Unknown [id number] 2.16.840.1.246388.3.579.2.9 1944 Unknown [id number] [id number] Unknown Social History Date Type Detail Facility Unknown if ever smoked [facility] Start: 12-28-2020 End: 03-19-2023 Sex Assigned At [facility] Start: 09-20-2022 Tobacco smoking status [facility] Ex-smoker [facility] End: 10-07-1969 History of tobacco use Current smoker [facility] End: 10-07-1969 History of tobacco use Cigarette Smoker [facility] Start: 09-20-2022 Tobacco use and exposure Smokeless tobacco non-user [facility] Start: 03-19-2023 Alcohol intake Ex-drinker (finding) [facility] Start: 12-28-2020 End: 03-19-2023 History of Social function [facility] Do you belong to any clubs or organizations such as nondenominational groups, unions, fraternal or athletic groups, or school groups? No [facility] Are you now , , , , never or living with a partner? [facility] How hard is it for y ou to pay for the very basics like food, housing, medical care, and heating Not hard at all [facility] Do you feel stress - tense, restless, nervous, or anxious, or unable to sleep at night because your mind is troubled all the time - these days [OSQ] Not at all [facility] Start: 03-10-1946 Sex Assigned At Not on file [facility] Goals Date Patient Goal Desired [...] potassium improved with dietary restriction and Lasix. [facility] 01-29-2024 Evaluation note* Encounter Date Diagnosis Assessment Notes Treatment Notes Treatment Clinical Notes Oct, Anemia of renal disease (ICD-10 - D63.1) Oct, CKD (chronic kidney disease) stage 4, GFR 15-29 ml/min (ICD-10 - N18.4) [facility] 01-09-2024 Evaluation note* Encounter Date Diagnosis [...] potassium improved with dietary restriction and Lasix. [facility] 12-04-2023 Evaluation note* Encounter Date Diagnosis [...] 4, GFR 15-29 ml/min (ICD-10 - N18.4) [facility] 11-21-2023 Evaluation note* Encounter Date Diagnosis Assessment Notes Treatment Notes Treatment Clinical Notes Aug, Anemia of renal disease (ICD-10 - D63.1) Aug, CKD (chronic kidney disease) stage 4, GFR 15-29 ml/min (ICD-10 - N18.4) [facility] 11-09-2023 Evaluation note* Encounter Date Diagnosis [...] of kidney mass hydronephrosis or kidney stones. [facility] 10-26-2023 Evaluation note* Encounter Date Diagnosis [...] potassium improved with dietary restriction and Lasix. [facility] 09-18-2023 Evaluation note* Encounter Date Diagnosis [...] potassium improved with dietary restriction and Lasix. [facility] 08-31-2023 Evaluation note* Encounter Date Diagnosis [...] potassium improved with dietary restriction and Lasix. [facility] 07-25-2023 Evaluation note* Encounter Date Diagnosis [...] to normal with dietary restriction and Lasix. [facility] 07-01-2023 Evaluation note* Encounter Date Diagnosis Assessment Notes Treatment Notes Treatment Clinical Notes Apr, CKD (chronic kidney disease) stage 4, GFR 15-29 ml/min (ICD-10 - N18.4) Apr, Anemia of renal disease (ICD-10 - D63.1) [facility] 06-27-2023 Evaluation note* Encounter Date Diagnosis [...] to normal with dietary restriction and Lasix. [facility] 06-01-2023 Evaluation note* Encounter Date Diagnosis [...] potassium diet and provide information about it. [facility] 03-16-2023 Evaluation note* Encounter Date Diagnosis [...] to Continue Vit D 5000 units daily [facility] 01-30-2023 Evaluation note* Encounter Date Diagnosis [...] to Continue Vit D 5000 units daily [facility] 12-22-2022 Evaluation note* Encounter Date Diagnosis [...] to Continue Vit D 5000 units daily [facility] 11-16-2022 Evaluation note* Encounter Date Diagnosis [...] to Continue Vit D 5000 units daily [facility] 08-04-2022 Evaluation note* Encounter Date Diagnosis Assessment Notes Treatment Notes Treatment Clinical Notes May, Hypertensive chronic kidney disease with stage 1 through stage 4 chronic kidney disease, or unspecified chronic kidney disease (ICD-10 - I12.9) [facility] 08-02-2022 Evaluation note* Encounter Date Diagnosis [...] to Continue Vit D 5000 units daily [facility] 07-19-2022 Evaluation note* Encounter Date Diagnosis Assessment Notes Treatment Notes Treatment Clinical Notes Apr, Hypertensive chronic kidney disease with stage 1 through stage 4 chronic kidney disease, or unspecified chronic kidney disease (ICD-10 - I12.9) [facility] 04-14-2022 Evaluation note* Encounter Date Diagnosis [...] to take Vit D 1000 units daily [facility] Evaluation noteNo InformationNort [facility] Other Evaluation note* Diagnosis Atherosclerosis of [place] coronary artery of [place] heart without angina 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 Hypertensive urgency Shortness of breath Paroxysmal atrial fibrillation ([facility]) Atrial fibrillation Localized edema Edema [facility] Narrative - Reported* Type [...] NOSE 10/2019 Surgical History QUAD BYPASS AT [facility] 01/01/2021 Hospitalization History ELEVATED BLOOD PRESSURE Hospitalization History SEE ABOVE Hospitalization History COVID 09/2020 [facility] Other History general Narrative - Reported* Type [...] History SEE ABOVE Hospitalization History COVID 09/2020 [facility] Other [employer] general Narrative - Reported* Type Description Date [...] History SEE ABOVE Hospitalization History COVID 09/2020 [facility] Other [employer] general Narrative - ReportedNoVungle Other history general Narrative - Reported* Type [...] NOSE 10/2019 Surgical History QUAD BYPASS AT [facility] 01/01/2021 Hospitalization History ELEVATED BLOOD PRESSURE Hospitalization History SEE ABOVE Hospitalization History COVID 09/2020 [facility] Other InstructionsNot on filedocumented in this encounter [facility] Summary Purpose Family History No Family History Records FoundNo Family History Records FoundNo Family History Records FoundNo Family History Records Found Advance Directives No Advanced Directives Records FoundLatest Code Status on File Code Status Date Activated Date Inactivated Comments Full Code 12/28/2020 2:33 PM 01/03/2021 7:38 PM Additional Source Comments INFORMATION SOURCE (unrecogn ized section and content) DATE CREATED AUTHOR 04/02/2018 [facility] DATE CREATED AUTHOR AUTHOR'S ORGANIZ ATION 01/27/2023 [facility] DATE CREATED AUTHOR AUTHOR'S ORGANIZ ATION 01/17/2024 [facility] EPIC DATE CREATED AUTHOR AUTHOR'S ORGANIZ ATION 01/18/2024 [facility] REASON FOR VISIT (unrecogniz ed section and content) Reason Comments Med Refill Care Teams (unrecognized sec tion and content) Ergonomics Technician Relationship Specialty Start Date End Date Dhruv Rubi MD [address] [place] [address] PCP - General Family Medicine 10/20/20 FOR [...] BE BASED ON THE PRIMARY CLINICAL RECORDS. [email or web address] provides no warranty or guarantee of the accuracy or completeness of information in this document.
[2024-01-21] MEDS: HYDRALAZINE HCL 20 MG/ML VIAL 10 MG IVP ×2 (18:26→22:33)
[2024-01-21] MEDS: LISINOPRIL 20 MG TABLET 40 MG PO (18:28)
[2024-01-21] MEDS: ISOSORBIDE MONONITRATE 30 MG TAB.ER.24H PO (18:28)
[2024-01-21] MEDS: ACETAMINOPHEN 325 MG TABLET 650 MG PO (19:40)
[2024-01-21] MEDS: FUROSEMIDE 40 MG/4 ML VIAL IVP (20:11)
[2024-01-21] MEDS: CARVEDILOL 25 MG TABLET PO (20:12)
[2024-01-21] MEDS: HEPARIN SODIUM (PORCINE) 5,000 UNIT/ML VIAL 5000 UNIT SUBQ (21:14)
[2024-01-21] MEDS: MAGNESIUM OXIDE 400 MG TABLET PO (21:14)
[2024-01-21] MEDS: ATORVASTATIN CALCIUM 40 MG TABLET 80 MG PO (21:14)
[2024-01-21 21:30] LABS: Troponin I High Sensitivity 14.3 pg/mL (4.0-51.3)
[2024-01-22] VITALS (39 sets, daily range): BP systolic 166–197; BP diastolic 56–82; PULSE 70–98; O2SAT 95–97; BMI 30.7
[2024-01-22] MEDS: ONDANSETRON PF 4 MG/2 ML VIAL IV (00:08)
[2024-01-22 04:56] LABS: Basophils Percent Auto 0.4 % (0.2-2.0); Eosinophils Absolute Auto 0.1 10^3/uL (0.0-0.7); Eosinophils Percent Auto 1.2 % (0.9-7.0); Hemoglobin 9.7 g/dL (12.0-16.0); Immature Granulocytes Abs Auto 0.02 10^3/uL (0.00-0.03); Immature Granulocytes Pct Auto 0.2 % (0.0-0.5); Lymphocytes Absolute Auto 2.3 10^3/uL (1.2-3.8); Lymphocytes Percent Auto 27.7 % (20.5-60.0); Mean Corpuscular HGB Conc 32.3 g/dL (29.9-35.2); Mean Corpuscular Hemoglobin 30.7 pg (26.7-34.0); Mean Corpuscular Volume 94.9 fL (81.0-99.0); Mean Platelet Volume 9.8 fL (9.5-13.5); Monocytes Absolute Auto 0.7 10^3/uL (0.3-0.8); Neutrophils Absolute Auto 5.3 10^3/uL (1.4-6.5); Neutrophils Percent Auto 62.5 % (43.0-75.0); Platelet Count 195 10^3/uL (150-450); Red Blood Count 3.16 10^6/uL (4.20-5.40); Red Cell Distribution Width 15.2 % (11.0-15.0); White Blood Count 8.4 10^3/uL (4.0-11.0)
[2024-01-22 05:28] LABS: Alanine Aminotransferase 36 U/L (14-59); Albumin Level 3.5 g/dL (3.4-5.0); Alkaline Phosphatase 82 U/L (46-116); Anion Gap 16.1; Aspartate Amino Transferase 25 U/L (15-37); BUN Creatinine Ratio 18.4; Bilirubin Total 0.6 mg/dL (0.2-1.0); Calcium 9.7 mg/dL (8.5-10.1); Carbon Dioxide 21.4 mmol/L (21.0-32.0); Chloride 104 mmol/L (98-107); Estimated GFR (African America 24 (>=60); Estimated GFR (Non-African Ame 20 (>=60); Globulin 3.5 g/dL; Glucose 217 mg/dL (74-106); Potassium 5.5 mmol/L (3.5-5.1); Sodium 136 mmol/L (136-145)
[2024-01-22] MEDS: HEPARIN SODIUM (PORCINE) 5,000 UNIT/ML VIAL 5000 UNIT SUBQ ×3 (05:37→21:50)
[2024-01-22] MEDS: MAGNESIUM OXIDE 400 MG TABLET PO ×3 (05:38→21:48)
[2024-01-22] MEDS: OMEPRAZOLE 40 MG CAPSULE.DR PO (05:38)
[2024-01-22] MEDS: HYDRALAZINE HCL 20 MG/ML VIAL 10 MG IVP ×2 (05:38→14:02)
--- NOTE | 2024-01-22 07:34 | CA_ITS ---
Patient Name: KYLAH BERGER MR#: [id number] : 1945 Exam Date: 01/22/2024 Ordering Doctor: DR Merrick Rubi . ECHOCARDIOGRAM REPORT PROCEDURE: CA ECHO DOPPLER COMPLETE INDICATIONS: Elevated bnp, hypertensive urgency, CABGx1, diabetes COMPARISON: None. DESCRIPTION: COMPLETE ECHOCARDIOGRAM Real-time transthoracic echocardiography with 2D, M-mode, spectral and color flow Doppler performed. QUALITY: Technical quality was good. 66.5 , 192#, BSA 1.97 m2, BP 190/78 LEFT VENTRICLE: Normal chamber size. Moderate to severe concentric left ventricular hypertrophy. LV EF: Global left ventricular systolic function is hyperdynamic; visually estimated ejection fraction 65 to 70%. No obvious wall motion abnormalities. DIASTOLIC: Grade II diastolic dysfunction. ATRIAL SEPTUM: Inadequately seen. LEFT ATRIUM: Severe dilatation. RIGHT ATRIUM: Normal chamber size. RIGHT VENTRICLE: Normal chamber size. Normal right ventricular systolic function. TRICUSPID VALVE: Normal mobility and thickness. No stenosis with trivial regurgitation. No evidence of pulmonary hypertension.RVSP 32 mmHg MITRAL VALVE: Normal mobility and thickness. No evidence of mitral valve stenosis. Moderate mitral annular calcification. Trivial mitral regurgitation. AORTIC VALVE: Normal trileaflet appearance. Mildly calcified aortic valve. Mildly diminished mobility. Doppler velocity suggest no significant aortic valve stenosis. No aortic regurgitation. AORTIC ROOT: Normal diameter and appearance. Ascending aorta is normal in size. PULMONIC VALVE: Normal thickness and mobility. No stenosis. No regurgitation. PERICARDIUM: Anterior free space; trivial effusion versus fat pad. IVC: Collapses with inspirations. CONCLUSION: 1. Global left ventricular systolic function is hyperdynamic; visually estimated ejection fraction 65 to 70% 2. Normal right ventricular size and systolic function 3. Moderate to severely increased left ventricular wall thickness 4. Grade 2 diastolic dysfunction 5. The left atrium is severely dilated 6. No significant valvular abnormalities 7. Anterior free space; trivial effusion versus fat pad Family Adult Echocardiography Procedure Report Left Ventricle LVEDD (3.7 - 5.6 cm): 4.08 cm LVESD (2.2 - 4.0 cm): 2.63 cm LVIVS thickness (0.6 - 1.2 cm): 1.50 cm LVPW thickness (0.5 - 1.0 cm): 1.26 cm e': 0.06 m/s E - e': 12.43 LVOT Max Gradient: 5.53 mm[Hg] LVOT Area (cm2): 1.18 m/s Peak Velocity (LVOT): 1.18 m/s Mean Velocity (LVOT): 0.79 m/s LVOT Diameter 2.14 cm Left Atrium LA Volume Index (2D A2C): 54.34 ml/m2 Left Atrium Systolic Dimension: 4.39 cm Mitral Valve MV E to A Ratio: 0.58 Mitral Valve A-Wave Peak Velocity: 1.33 m/s Mitral Valve E-Wave Peak Velocity: 0.77 m/s Right Ventricle Aorta AO Root Diam: 3.30 cm Ascending Ao Diam: 3.60 cm Aortic Valve AoV Area (Peak Shlomo): 2.07 cm2, 2.17 cm2 AoV Area (VTI): 1.85 cm2, 1.98 cm2 Peak Velocity(Antegrade Flow): 1.94 m/s, 1.97 m/s, 1.82 m/s, 2.04 m/s Peak Gradient(Antegrade Flow): 15.07 mm[Hg], 15.47 mm[Hg], 13.27 mm[Hg], 16.65 mm[Hg] Mean Velocity(Antegrade Flow): 1.29 m/s, 1.36 m/s, 1.28 m/s, 1.49 m/s Mean Gradient(Antegrade Flow): 7.71 mm[Hg], 8.34 mm[Hg], 7.56 mm[Hg], 10.24 mm[Hg] Velocity Time Integral: 36.55 cm, 39.02 cm, 35.06 cm, 39.10 cm Tricuspid Valve Peak Velocity (Regurgitant Flow): 2.70 m/s Pulmonic Valve Mean Gradient: 3.81 mm[Hg] Mean Velocity: 0.89 m/s Peak Velocity: 1.36 m/s, 1.36 m/s Peak Gradient: 7.40 mm[Hg], 7.40 mm[Hg] Right Atrium Dictated by: Carlie Catherine M.D. on 01/22/2024 at 15:22 Approved by: Carlie Catherine M.D. on 01/22/2024 at 15:28
--- NOTE | 2024-01-22 07:59 | US_ITS ---
The [address] [address] Patient Name: KYLAH BERGER MRN: [id number] date: 1945 Sex: F Assigned Patient Location: LAB Current Patient Location: LAB Accession/Order Number: [id number] Exam Date: 01/22/2024 08:20 Report Date: 01/22/2024 09:31 At the request of: DHRUV GUTIERRES Procedure: US renal doppler EXAM: US renal doppler HISTORY: hypertensive emergency COMPARISON: None. TECHNIQUE: Grayscale, color and Doppler FINDINGS: The right kidney is small in size normal contour measuring 8.0 x 4.8 x 5.5 cm. Area of anechoic echogenicity mid pole measuring 1.4 cm, simple cysts. The cortex is thinned measuring 0.5 cm. Increased cortical echotexture. No solid cortical mass, hydronephrosis or obstructing nephrolithiasis. The left kidney is small in size normal contour measuring 10.6 x 4.7 x 5.2 cm. The cortex is thinned measuring 0.5 cm. Increased cortical echotexture. No solid cortical mass, hydronephrosis or obstructing nephrolithiasis The urinary bladder is mildly distended measuring 39 cc. Aorta PSV/EDV: 104/2 cm/s Right renal artery: 49 to 88 cm/s Left renal artery: 17 to 172 cm/s US/US renal doppler IMPRESSION: Bilateral renal cortical atrophy and increased echotexture consistent with medical renal disease Elevated flow velocities in the left proximal and mid renal artery. This could result in renovascular hypertension Electronically authenticated by: BENI APARICIO Date: 01/22/2024 09:31
--- NOTE | 2024-01-22 08:00 | P.HP_ITS ---
HPI H&P: HPI History of Present Illness Chief complaint: Hypertension, Chest Pain, Hypertensive Urgency Narrative: Patient was seen and evaluated in the office earlier on the day of admission, having issues with fluctuating sugars from 30-300, also blood pressure up at times, medications were recently adjusted by cardiology and she had a follow-up plan to see them next week, but progressively on the day of admission she started having increasing shortness of breath and headache, blood pressure significantly elevated at home, she presented to the emergency room of had a blood pressure of 290/110. With the headache, shortness of breath, chest tightness, elevated BNP she was admitted for hypertensive emergency When I saw patient up on the ICU floor this morning, resting comfortably in bed, still has a slight headache, unable to assess dyspnea as she has not been up and moving it. Chest tightness is improved. Opioid HPI Opioid Management Most Recent Opioid Data: Last Pain Scale 2 01/21/24 21:03 Last Pain Assessment 01/22/24 07:00 Last ORT Total Score 0 01/21/24 17:56 Last ORT Risk Category Low Risk 01/21/24 17:56 Review of Systems ROS Status of ROS 10 or more systems reviewed and unremark able except as noted in history and below PFSH PFSH Medical History (Updated 01/22/24 @ 08:03 by Merrick Rubi MD) Chest pain ?R07.9 - Chest pain, unspecified (ICD-10) Hypertensive urgency ?I16.0 - Hypertensive urgency (ICD-10) Raynaud disease ?I73.00 - Raynaud's syndrome without gangrene (ICD-10) Basal cell carcinoma of skin of nose ?C44.311 - Basal cell carcinoma of skin of nose (ICD-10) Elevated cholesterol ?E78.00 - Pure hypercholesterolemia, unspecified (ICD-10) Chronic kidney disease ?N18.9 - Chronic kidney disease, unspecified (ICD-10) HTN (hypertension) ?I10 - Essential (primary) hypertension (ICD-10) Diabetes ?E11.9 - Type 2 diabetes mellitus without complications (ICD-10) CAD (coronary artery disease) ?I25.10 - Atherosclerotic heart disease of [place] coronary artery without angina pectoris (ICD-10) Surgical History (Updated 12/31/23 @ 02:52 by Seema Hung RN) S/P CABG x 1 ?Z95.1 - Presence of aortocoronary bypass graft (ICD-10) H/O shoulder surgery ?Z98.890 - Other specified postprocedural states (ICD-10) History of cholecystectomy ?Z90.49 - Acquired absence of other specified parts of digestive tract (ICD- 10) History of hysterectomy ?Z90.710 - Acquired absence of both cervix and uterus (ICD-10) Family History (Updated 12/31/23 @ 02:55 by Seema Hung RN) Sister Family history of myocardial infarction Family history of hypertension Brother Family history of myocardial infarction Family history of diabetes mellitus Brother Family history of hypertension Father Family history of cancer Social History Smoking status: Former smoker Highest level of school completed/degree received: 12th grade, no diploma Meds Home Medications and Allergies Home Medications ?Medication ?Instructions ?Recorded ?Confirmed ?Type allopurinol 300 mg tablet 300 mg PO DAILY 03/17/23 01/21/24 History atorvastatin 80 mg tablet 80 mg PO .QHS 03/17/23 01/21/24 History insulin aspart U-100 100 unit/mL 12 unit subcut DAILY 03/17/23 01/21/24 History (3 mL) subcutaneous pen (Novolog FlexPen U-100 Insulin aspart) liothyronine 5 mcg tablet 10 mcg PO .QD 03/17/23 01/21/24 History magnesium oxide 400 mg (241.3 mg 400 mg PO TID 03/17/23 01/21/24 History magnesium) tablet pantoprazole 40 mg tablet,delayed 40 mg PO .QD 03/17/23 01/21/24 History release ferrous sulfate 325 mg (65 mg 325 mg PO BID 12/31/23 01/21/24 History iron) tablet lisinopril 20 mg tablet 20 mg PO .once a day 12/31/23 01/21/24 History meloxicam 15 mg tablet 15 mg PO .QD 12/31/23 01/21/24 History carvedilol 25 mg tablet 37.5 mg (1.5 x 25 mg) PO BID #90 01/01/24 01/21/24 Rx tabs clonidine HCl 0.1 mg tablet 0.2 mg (2 x 0.1 mg) PO BID #120 01/01/24 01/21/24 Rx tabs Allergies Allergy/AdvReac Type Severity Reaction Status Date / Time amoxicillin [From Augmentin] Allergy Rash Verified 12/30/23 20:03 clavulanic acid Allergy Rash Verified 12/30/23 20:03 [From Augmentin] sulfamethoxazole Allergy Rash Verified 12/30/23 20:03 [From Bactrim] trimethoprim [From Bactrim] Allergy Rash Verified 12/30/23 20:03 NORVASC Allergy Unknown Uncoded 12/30/23 20:03 CT dye Allergy Unconscious Uncoded 12/30/23 20:03 Exam Constitutional Vital Signs, click to edit/add: Last Vital Signs Temp 98.4 F 01/21/24 19:32 Pulse 98 H 01/22/24 06:34 Resp 18 01/22/24 05:02 BP 171/61 H 01/22/24 06:34 Pulse Ox 95 01/22/24 05:00 O2 Del Method Room Air 01/21/24 22:52 Documenting provider has reviewed patient's vital signs: yes Common normals: no apparent distress Chest Common normals: inspection of chest normal Respiratory Common normals: normal respiratory effort, no retractions and clear to auscultation bilaterally Cardio Common normals: regular rate, regular rhythm and no murmurs GI Common normals: Normal to inspection, nondistended, normoactive bowel sounds present Extremity Common normals: abnormal to inspection (1+ edema) Results Labs Labs: Short CBC 01/21/24 01/22/24 Range/Units 16:08 04:06 WBC 7.5 8.4 (4.0-11.0) 10^3/uL Hgb 10.4 L 9.7 L (12.0-16.0) g/dL Hct 31.2 L 30.0 L (36.0-48.0) % Plt Count 200 195 (150-450) 10^3/uL BMP 01/21/24 01/22/24 16:08 04:06 Sodium 137 136 Potassium 5.5 H 5.5 H Chloride 106 104 Carbon Dioxide 21.8 21.4 BUN 40.0 H 44.0 H Creatinine 2.32 H 2.39 H Glucose 135 H 217 H Calcium 9.7 9.7 Liver Function 01/21/24 01/22/24 Range/Units 16:08 04:06 Total Bilirubin 0.5 0.6 (0.2-1.0) mg/dL AST 23 25 (15-37) U/L ALT 38 36 (14-59) U/L Alkaline Phosphatase 89 82 (46-116) U/L Albumin 3.7 3.5 (3.4-5.0) g/dL Assessment and Plan Assessment and Plan (1) Hypertensive emergency: Plan On admission findings: Severely elevated blood pressure to 290/110 with end organ damage of acute diastolic heart failure, chest pressure, headache. Patient was given IV medications in ER blood pressure slowly improved. Headache improved but has not resolved. Blood pressure still over 180 systolic overnight. Family states this was similar to the time when she had her coronary artery blockage. Consult to cardiology. Cortisol and metanephrines are pending, will check ultrasound of renal arteries. TSH somewhat suppressed, will decrease Cytomel dose. Restart clonidine, cardiology had bumped up her Coreg to 50 mg twice a day but will go with 25 mg 3 times daily for now. Do not want her blood pressure decreased too quickly Elevated BNP-with peripheral edema consistent with acute diastolic heart failure. On IV Lasix. Hyperkalemia-secondary to chronic kidney disease stage IV-on diuretics we will see how that progresses Chronic kidney disease stage IV-stable from previous day. Continue with allopurinol, monitor daily Acute UTI started treatment day prior to admission, will continue IV dosing here while cultures are pending Iron deficiency anemia as well as anemia of chronic kidney disease-continue with iron supplementation Insulin-dependent diabetes mellitus-have been decreasing her long-acting insulin she was on 40 units twice daily will take down to 20 units twice daily Hypercholesterolemia-continue with current dosing Hypothyroidism-TSH somewhat suppressed so we will decrease her Cytomel down to micrograms a day. Generalized arthritis-she has been taken off of her meloxicam, using Ultram for pain control currently GERD-continue with PPI Hypomagnesemia-continue supplementation, slightly low we will see how that progresses with diuresis Admission status: Patient presented with hypertensive emergency, blood pressure slightly better, high risk for stroke and GA. Medically necessary treatment will span 2 midnights so maintain inpatient status
[2024-01-22 08:15] LABS: Troponin I High Sensitivity 16.4 pg/mL (4.0-51.3)
--- NOTE | 2024-01-22 08:18 | CT_ITS ---
[address] [address] Patient Name: KYLAH BERGER MRN: [id number] date: 1945 Sex: F Assigned Patient Location: ICU Current Patient Location: ICU Accession/Order Number: [id number] Exam Date: 01/22/2024 08:39 Report Date: 01/22/2024 09:03 At the request of: DHRUV GUTIERRES Procedure: CT head/brain wo con EXAMINATION: CT head/brain wo con, 01/22/2024 8:39 AM EDT HISTORY: hypertensive urgency COMPARISON: 03/17/2023 TECHNIQUE: CT scan of the head was performed without IV contrast. CT dose reduction technique was used, including Automated Exposure Control. FINDINGS: BRAIN: No edema, hemorrhage, mass, acute infarction, or inappropriate atrophy. CSF SPACES: No hydrocephalus, subarachnoid hemorrhage, or mass. Appropriate for age. SKULL: No fracture, mass, or other significant visible lesion. SINUSES: No significant mucosal thickening or fluid on the limited views. ORBITS: No appreciable abnormality on the limited views. OTHER: Vascular calcification CT/CT head/brain wo con IMPRESSION: No acute intracranial abnormality Electronically authenticated by: BENI APARICIO Date: 01/22/2024 09:03
[2024-01-22 08:26] LABS: Glucometer 216 mg/dL (74-106)
--- NOTE | 2024-01-22 08:43 | CM.NOTE ---
Important Message From Medicare discussed with pt, pt verbalizes understanding and signs paper. Original given to pt and copy placed in pt's chart.
[2024-01-22] MEDS: LEVOFLOXACIN IN DEXTROSE 5 % 750 MG/150 ML IV.SOLN 100 MG IV (09:55)
[2024-01-22] MEDS: INSULIN DETEMIR 300 UNIT/3 ML INSULN.PEN 20 UNIT SUBQ ×2 (09:55→20:29)
[2024-01-22] MEDS: LIOTHYRONINE SODIUM 5 MCG TABLET PO (09:56)
[2024-01-22] MEDS: CLONIDINE HCL 0.1 MG TABLET 0.200000000000000011 MG PO ×2 (09:56→20:19)
[2024-01-22] MEDS: LISINOPRIL 20 MG TABLET 40 MG PO (09:57)
[2024-01-22] MEDS: FUROSEMIDE 40 MG/4 ML VIAL IVP ×2 (09:57→20:20)
[2024-01-22] MEDS: ISOSORBIDE MONONITRATE 60 MG TAB.ER.24H PO (09:57)
[2024-01-22] MEDS: CARVEDILOL 25 MG TABLET PO ×2 (09:57→15:30)
[2024-01-22] MEDS: ALLOPURINOL 100 MG TABLET 50 MG PO (09:57)
[2024-01-22] MEDS: FERROUS SULFATE 325 MG TABLET PO ×2 (09:57→20:20)
[2024-01-22 11:29] LABS: Glucometer 294 mg/dL (74-106)
[2024-01-22] MEDS: INSULIN ASPART 300 UNIT/3 ML PEN SUBQ ×2 (11:29→21:52)
--- NOTE | 2024-01-22 12:48 | PM.CACN ---
History of Present Illness History of Present Illness Consult date: 01/22/24 Requesting physician: Merrick Rubi Consult reason: hypertension, congestive heart failure and shortness of breath Chief complaint: Hypertension, Chest Pain, Hypertensive Urgency Narrative: 78 yo with h/o CAD, prior CABG, stage 4 CKD, essential HTN recently difficult to control and HPpEF with shortness of breath She was recently seen by her steward/stewardess third class, Dr Lucas of [facility]. Antihypertensive regimen was adjusted. However, her BP has been progressively worsening and she presented with worsened SOB and leg swelling. Patient was seen and evaluated in the office earlier on the day of admission, having issues with fluctuating sugars from 30-300, also blood pressure up at times, medications were recently adjusted by cardiology and she had a follow-up plan to see them next week, but progressively on the day of admission she started having increasing shortness of breath and headache, blood pressure significantly elevated at home, she presented to the emergency room of had a blood pressure of 290/110. With the headache, shortness of breath, chest tightness, elevated BNP she was admitted for hypertensive emergency She states that she feels improved after lasix was restarted. She has CP when her BP is elevated, the pain improves with BP reduction. No recent weight gain despite LE swelling. No orthopnea, no PND. No changes to medications apart from that prescribed by her steward/stewardess third class. Sees a ext js developer; her current s.cr is 2.32 down from 2.39 Review of Systems ROS Status of ROS 10 or more systems reviewed and unremarkable except as noted in history and below Cardiovascular Reports: chest pain, swelling of feet/ankles and shortness of breath with exertion Respiratory Reports: shortness of breath [facility] Medical History (Updated 01/22/24 @ 13:04 by Carlie Catherine MD) Chest pain ?R07.9 - Chest pain, unspecified (ICD-10) Hypertensive urgency ?I16.0 - Hypertensive urgency (ICD-10) Raynaud disease ?I73.00 - Raynaud's syndrome without gangrene (ICD-10) Basal cell carcinoma of skin of nose ?C44.311 - Basal cell carcinoma of skin of nose (ICD-10) Elevated cholesterol ?E78.00 - Pure hypercholesterolemia, unspecified (ICD-10) Chronic kidney disease ?N18.9 - Chronic kidney disease, unspecified (ICD-10) HTN (hypertension) ?I10 - Essential (primary) hypertension (ICD-10) Diabetes ?E11.9 - Type 2 diabetes mellitus without complications (ICD-10) CAD (coronary artery disease) ?I25.10 - Atherosclerotic heart disease of [place] coronary artery without angina pectoris (ICD-10) Surgical History S/P CABG x 1 ?Z95.1 - Presence of aortocoronary bypass graft (ICD-10) H/O shoulder surgery ?Z98.890 - Other specified postprocedural states (ICD-10) History of cholecystectomy ?Z90.49 - Acquired absence of other specified parts of digestive tract (ICD-10) History of hysterectomy ?Z90.710 - Acquired absence of both cervix and uterus (ICD-10) Family History Sister Family history of myocardial infarction Family history of hypertension Brother Family history of myocardial infarction Family history of diabetes mellitus Brother Family history of hypertension Father Family history of cancer Social History Smoking status: Former smoker Highest level of school completed/degree received: 12th grade, no diploma Meds Home Medications and Allergies Home Medications ?Medication ?Instructions ?Recorded ?Confirmed ?Type allopurinol 300 mg tablet 300 mg PO DAILY 03/17/23 01/21/24 History atorvastatin 80 mg tablet 80 mg PO .QHS 03/17/23 01/21/24 History insulin aspart U-100 100 unit/mL 12 unit subcut DAILY 03/17/23 01/21/24 History (3 mL) subcutaneous pen (Novolog FlexPen U-100 Insulin aspart) liothyronine 5 mcg tablet 10 mcg PO .QD 03/17/23 01/21/24 History magnesium oxide 400 mg (241.3 mg 400 mg PO TID 03/17/23 01/21/24 History magnesium) tablet pantoprazole 40 mg tablet,delayed 40 mg PO .QD 03/17/23 01/21/24 History release ferrous sulfate 325 mg (65 mg 325 mg PO BID 12/31/23 01/21/24 History iron) tablet lisinopril 20 mg tablet 20 mg PO .once a day 12/31/23 01/21/24 History meloxicam 15 mg tablet 15 mg PO .QD 12/31/23 01/21/24 History clonidine HCl 0.1 mg tablet 0.2 mg (2 x 0.1 mg) PO BID #120 01/01/24 01/21/24 Rx tabs carvedilol 25 mg tablet 50 mg PO BID 01/22/24 01/22/24 History fluconazole 100 mg tablet 100 mg PO DAILY 01/22/24 01/22/24 History furosemide 20 mg tablet 20 mg PO DAILY 01/22/24 01/22/24 History isosorbide mononitrate 30 mg 30 mg PO DAILY 01/22/24 01/22/24 History tablet,extended release 24 hr levofloxacin 750 mg tablet 750 mg PO DAILY 01/22/24 01/22/24 History levothyroxine 125 mcg tablet 125 mcg PO DAILY 01/22/24 01/22/24 History Allergies Allergy/AdvReac Type Severity Reaction Status Date / Time amlodipine [From Norvasc] Allergy Mild itchy Verified 01/22/24 09:50 Iodinated Contrast Media Allergy Unknown Verified 01/22/24 09:23 amoxicillin [From Augmentin] Allergy Rash Verified 12/30/23 20:03 clavulanic acid Allergy Rash Verified 12/30/23 20:03 [From Augmentin] sulfamethoxazole Allergy Rash Verified 12/30/23 20:03 [From Bactrim] trimethoprim [From Bactrim] Allergy Rash Verified 12/30/23 20:03 Exam Constitutional Vital Signs, click to edit/add: Last Vital Signs Temp 98.4 F 01/21/24 19:32 Pulse 79 01/22/24 10:00 Resp 16 01/22/24 08:00 BP 171/61 H 01/22/24 06:34 Pulse Ox 97 01/22/24 11:35 O2 Del Method Room Air 01/22/24 11:35 Documenting provider has reviewed patient's vital signs: yes Common normals: no apparent distress, average body habitus (obese) and oriented x3 General appearance: cooperative and comfortable Nutritional appearance: obese Orientation/consciousness: Yes awake HENMT Common normals: head/scalp atraumatic Eye Common normals: EOMs intact bilaterally General eye: normal appearance of both eyes Neck & C-Spine General: normal visual inspection Chest Common normals: inspection of chest normal Respiratory Common normals: normal respiratory effort Effort & inspection: able to speak in complete sentences Auscultation: clear to auscultation bilaterally Cardio Common normals: no JVD, regular rate and regular rhythm Rate: regular rate Rhythm: regular rhythm Heart sounds: S1 normal and S2 normal Extremity Common normals: normal to inspection, no clubbing, cyanosis or edema and no pedal edema (1+ pitting edema) Neuro Common normals: oriented x3 Results Labs and Meds Lab results: Cardiac Enzymes 01/21/24 01/22/24 Range/Units 16:08 04:06 AST 23 25 (15-37) U/L Coagulation 01/21/24 Range/Units 16:08 PT 11.3 (9.0-11.6) sec CBC 01/21/24 01/22/24 Range/Units 16:08 04:06 WBC 7.5 8.4 (4.0-11.0) 10^3/uL RBC 3.33 L 3.16 L (4.20-5.40) 10^6/uL Hgb 10.4 L 9.7 L (12.0-16.0) g/dL Hct 31.2 L 30.0 L (36.0-48.0) % Plt Count 200 195 (150-450) 10^3/uL Neut # (Auto) 4.2 5.3 (1.4-6.5) 10^3/uL Lymph # (Auto) 2.3 2.3 (1.2-3.8) 10^3/uL [place] # (Auto) 0.8 0.7 (0.3-0.8) 10^3/uL Eos # (Auto) 0.2 0.1 (0.0-0.7) 10^3/uL Baso # (Auto) 0.0 0.0 (0.0-0.1) 10^3/uL Comprehensive Metabolic Panel 01/21/24 01/22/24 Range/Units 16:08 04:06 Sodium 137 136 (136-145) mmol/L Potassium 5.5 H 5.5 H (3.5-5.1) mmol/L Chloride 106 104 (98-107) mmol/L Carbon Dioxide 21.8 21.4 (21.0-32.0) mmol/L BUN 40.0 H 44.0 H (7.0-18.0) mg/dL Creatinine 2.32 H 2.39 H (0.55-1.02) mg/dL Glucose 135 H 217 H (74-106) mg/dL Calcium 9.7 9.7 (8.5-10.1) mg/dL AST 23 25 (15-37) U/L ALT 38 36 (14-59) U/L Alkaline Phosphatase 89 82 (46-116) U/L Total Protein 7.4 7.0 (6.4-8.2) g/dL Albumin 3.7 3.5 (3.4-5.0) g/dL Intake and Output 01/21/24 01/22/24 01/22/24 23:59 07:59 15:59 Output Total 650 / 875 225 / 875 Balance -650 / -875 -225 / -875 Output: Urine 650 / 875 225 / 875 Other: Weight 87.5 kg Imaging and Cardiology Cardiac cath: pending (Preliminary echo reported as nml EF%, no significant valve disease) EKG Interpretation EKG: sinus rhythm Assessment and Plan Assessment and Plan (1) Hypertensive emergency: (2) Chronic kidney disease: Qualifiers: Chronic kidney disease stage: stage 4 (severe) Qualified Code(s): N18.4 - Chronic kidney disease, stage 4 (severe) (3) Chest pain: Qualifiers: Chest pain type: unspecified Qualified Code(s): R07.9 - Chest pain, unspecified (4) HTN (hypertension): Qualifiers: Hypertension type: unspecified Qualified Code(s): I10 - Essential (primary) hypertension (5) Diabetes: Qualifiers: Diabetes mellitus type: type 2 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 transplanted heart: [place] heart Associated angina: with other forms of angina Qualified Code(s): I25.118 - Atherosclerotic heart disease of [place] coronary artery with other forms of angina pectoris (7) S/P CABG x 1: (8) (HFpEF) heart failure with preserved ejection fraction: Qualifiers: Heart failure chronicity: acute on chronic Qualified Code(s): I50.33 - Acute on chronic diastolic (congestive) heart failure Plan 1. Continue diuresis; strict Is/Os and daily weights 2. Closely monitor s.cr and electrolytes 3. Consider IV NTG gtt for BP control and improvement of related CP given h/o CAD and CABG 4. PRN IV hydrazline or IV labetolol for SBP >150 mmHg. Uptitrate oral anti-hypertensives as directed by her steward/stewardess third class; consider addition of Hydralazine 25 mg PO BID and Imdur 30 mg daily 5. Guideline directed medical therapy for CAD should include ASA, statin, a BBlocker and an SIENNA-I/ARB given her DM; however, the s.cr is prohibitive. 6. Given DM, HFpEF and CAD, an SGLT2i is indicated but, again, CKD is prohibitive 7. I discussed with the patient, her family member and Dr Rubi the possible need for transfer to [facility] if her BP and symptoms do not improve especially given her CKD and h/o CAD. She may benefit from a RHC to assess invasive hemodynamics and help guide diuretic therapy Thank you for the consultation Carlie Catherine MD [facility] Cardiovascular Medicine
--- NOTE | 2024-01-22 15:36 | SWNOTE1 ---
SW spoke to case management and pt has no needs identified at discharge. SW to follow as needed.
[2024-01-22] MEDS: ACETAMINOPHEN 500 MG TABLET 1000 MG PO (15:37)
[2024-01-22 17:51] LABS: Glucometer 163 mg/dL (74-106)
[2024-01-22] MEDS: CARVEDILOL 25 MG TABLET 50 MG PO (20:19)
[2024-01-22 20:38] LABS: Glucometer 209 mg/dL (74-106)
[2024-01-22] MEDS: ATORVASTATIN CALCIUM 40 MG TABLET 80 MG PO (21:48)
[2024-01-23] VITALS (51 sets, daily range): BP systolic 122–152; BP diastolic 53–73; PULSE 64–84; TEMP 36.1–36.7; O2SAT 95–98
[2024-01-23] MEDS: OMEPRAZOLE 40 MG CAPSULE.DR PO (05:34)
[2024-01-23] MEDS: LEVOTHYROXINE SODIUM 125 MCG TABLET PO (05:34)
[2024-01-23] MEDS: MAGNESIUM OXIDE 400 MG TABLET PO ×3 (05:34→21:08)
[2024-01-23] MEDS: HEPARIN SODIUM (PORCINE) 5,000 UNIT/ML VIAL 5000 UNIT SUBQ ×3 (05:34→23:11)
[2024-01-23 05:47] LABS: Basophils Percent Auto 0.4 % (0.2-2.0); Eosinophils Absolute Auto 0.1 10^3/uL (0.0-0.7); Eosinophils Percent Auto 1.9 % (0.9-7.0); Hematocrit 28.1 % (36.0-48.0); Hemoglobin 9.1 g/dL (12.0-16.0); Immature Granulocytes Abs Auto 0.01 10^3/uL (0.00-0.03); Immature Granulocytes Pct Auto 0.1 % (0.0-0.5); Lymphocytes Absolute Auto 2.8 10^3/uL (1.2-3.8); Lymphocytes Percent Auto 40.1 % (20.5-60.0); Mean Corpuscular HGB Conc 32.4 g/dL (29.9-35.2); Mean Corpuscular Hemoglobin 30.4 pg (26.7-34.0); Mean Platelet Volume 9.9 fL (9.5-13.5); Monocytes Absolute Auto 0.8 10^3/uL (0.3-0.8); Monocytes Percent Auto 10.8 % (1.7-12.0); Neutrophils Absolute Auto 3.2 10^3/uL (1.4-6.5); Neutrophils Percent Auto 46.7 % (43.0-75.0); Platelet Count 170 10^3/uL (150-450); Red Blood Count 2.99 10^6/uL (4.20-5.40); Red Cell Distribution Width 15.5 % (11.0-15.0); White Blood Count 6.9 10^3/uL (4.0-11.0)
[2024-01-23 06:06] LABS: Alanine Aminotransferase 28 U/L (14-59); Albumin Globulin Ratio 1.1; Albumin Level 3.4 g/dL (3.4-5.0); Alkaline Phosphatase 75 U/L (46-116); Anion Gap 15.7; Aspartate Amino Transferase 17 U/L (15-37); Bilirubin Total 0.4 mg/dL (0.2-1.0); Calcium 9.5 mg/dL (8.5-10.1); Carbon Dioxide 22.3 mmol/L (21.0-32.0); Chloride 103 mmol/L (98-107); Estimated GFR (African America 17 (>=60); Estimated GFR (Non-African Ame 14 (>=60); Globulin 3.2 g/dL; Glucose 134 mg/dL (74-106); Sodium 136 mmol/L (136-145); Total Protein 6.6 g/dL (6.4-8.2)
--- NOTE | 2024-01-23 07:46 | P.PN_ITS ---
Progress Note: Subjective Subjective Interval history: BP improved this morning, patient does feel better with no chest tightness and no headache. Patient has not been up and ambulating yet however. Exam Constitutional Vital Signs, click to edit/add: Last Vital Signs Temp 97.0 F L 01/23/24 04:04 Pulse 73 01/23/24 05:56 Resp 18 01/23/24 04:04 BP 122/59 01/23/24 04:04 Pulse Ox 97 01/23/24 07:14 O2 Del Method Room Air 01/23/24 07:14 Documenting provider has reviewed patient's vital signs: yes Common normals: no apparent distress, average body habitus (obese) and oriented x3 General appearance: cooperative and comfortable Nutritional appearance: obese Orientation/consciousness: Yes awake HENMT Common normals: head/scalp atraumatic Eye Common normals: EOMs intact bilaterally General eye: normal appearance of both eyes Neck & C-Spine General: normal visual inspection Chest Common normals: inspection of chest normal Respiratory Common normals: normal respiratory effort Effort & inspection: able to speak in complete sentences Auscultation: clear to auscultation bilaterally Cardio Common normals: no JVD, regular rate and regular rhythm Rate: regular rate Rhythm: regular rhythm Heart sounds: S1 normal and S2 normal Extremity Common normals: normal to inspection, no clubbing, cyanosis or edema and no pedal edema (edema resolved) Neuro Common normals: oriented x3 Progress Note: Objective Labs Labs: Short CBC 01/23/24 Range/Units 03:50 WBC 6.9 (4.0-11.0) 10^3/uL Hgb 9.1 L (12.0-16.0) g/dL Hct 28.1 L (36.0-48.0) % Plt Count 170 (150-450) 10^3/uL BMP 01/23/24 03:50 Sodium 136 Potassium 5.0 Chloride 103 Carbon Dioxide 22.3 BUN 62.0 H Creatinine 3.26 H Glucose 134 H Calcium 9.5 Liver Function 01/23/24 Range/Units 03:50 Total Bilirubin 0.4 (0.2-1.0) mg/dL AST 17 (15-37) U/L ALT 28 (14-59) U/L Alkaline Phosphatase 75 (46-116) U/L Albumin 3.4 (3.4-5.0) g/dL Progress Note: A&P Assessment and Plan (1) Hypertensive emergency: (2) Chronic kidney disease: Qualifiers: Chronic kidney disease stage: stage 4 (severe) Qualified Code(s): N18.4 - Chronic kidney disease, stage 4 (severe) (3) Chest pain: Qualifiers: Chest pain type: unspecified Qualified Code(s): R07.9 - Chest pain, unspecified (4) HTN (hypertension): Qualifiers: Hypertension type: unspecified Qualified Code(s): I10 - Essential (primary) hypertension (5) Diabetes: Qualifiers: Diabetes mellitus complication status: with other specified complication Diabetes mellitus alf insulin use: unspecified manager long term care insulin use status Diabetes mellitus type: type 2 Qualified Code(s): E11.69 - Type 2 diabetes mellitus with other specified complication (6) CAD (coronary artery disease): Qualifiers: Associated angina: with other forms of angina Coronary Disease- Associated Artery/Lesion type: [place] artery [place] vs. transplanted heart: [place] heart Qualified Code(s): I25.118 - Atherosclerotic heart disease of [place] coronary artery with other forms of angina pectoris (7) S/P CABG x 1: (8) (HFpEF) heart failure with preserved ejection fraction: Qualifiers: Heart failure chronicity: acute on chronic Qualified Code(s): I50.33 - Acute on chronic diastolic (congestive) heart failure Plan On admission findings: Severely elevated blood pressure to 290/110 with end organ damage of acute diastolic heart failure, chest pressure, headache. Patient was given IV medications in ER blood pressure slowly improved. Headache improved but has not resolved. Blood pressure still over 180 systolic overnight. Family states this was similar to the time when she had her coronary artery blockage. Consult to cardiology. Cortisol and metanephrines are pending, will check ultrasound of renal arteries. : Renal artery ultrasound suggests renovascular hypertension. Unable to do dye study secondary to increasing creatinine, blood pressure is improved with restarting clonidine and increased dose of Imdur. So far that is just this morning's blood pressure though when she has not ambulated which is what in the past has caused her blood pressure to elevate. With aggressive changes in 3 different blood pressure medications yesterday, will monitor patient throughout the day today. Patient high risk for hypotension, if hypertension recurs, she will need to be transferred to tertiary care facility. Elevated BNP-with peripheral edema consistent with acute diastolic heart failure. Resolved, DC IV Lasix due to acute renal failure. Acute renal failure -creatinine a significant elevated at 3.26 this puts her with a baseline creatinine of 2, at 163% above her baseline. Will give back small amount of fluid this morning 500 cc over 5 hours. Hyperkalemia-secondary to chronic kidney disease stage IV--resolved Chronic kidney disease stage IV--progressed, see above Acute UTI started treatment day prior to admission, change patient to oral antibiotics, urine culture did not grow anything but she had already been on the antibiotics for 36 hours. Iron deficiency anemia as well as anemia of chronic kidney disease-continue with iron supplementation Insulin-dependent diabetes mellitus-sugars still in the low 200s, will increase her long-acting insulin by 6 units twice daily Hypercholesterolemia-continue with current dosing Hypothyroidism-TSH somewhat suppressed so we will decrease her Cytomel down to micrograms a day. Generalized arthritis-she has been taken off of her meloxicam, using Ultram for pain control currently GERD-continue with PPI Hypomagnesemia-continue supplementation, slightly low we will see how that progresses with diuresis Admission status: Patient presented with hypertensive emergency, blood pressure slightly better, high risk for stroke and NC. Medically necessary treatment will span 2 midnights so maintain inpatient status
[2024-01-23] MEDS: ISOSORBIDE MONONITRATE 60 MG TAB.ER.24H PO (08:22)
[2024-01-23] MEDS: 0.9 % SODIUM CHLORIDE 500 ML 100 ML IV (08:22)
[2024-01-23] MEDS: LISINOPRIL 20 MG TABLET 40 MG PO (08:23)
[2024-01-23] MEDS: CARVEDILOL 25 MG TABLET 50 MG PO ×2 (08:23→21:08)
[2024-01-23] MEDS: LIOTHYRONINE SODIUM 5 MCG TABLET PO (08:23)
[2024-01-23] MEDS: FERROUS SULFATE 325 MG TABLET PO ×2 (08:23→21:08)
[2024-01-23] MEDS: CLONIDINE HCL 0.1 MG TABLET 0.200000000000000011 MG PO ×2 (08:23→21:08)
[2024-01-23] MEDS: INSULIN DETEMIR 300 UNIT/3 ML INSULN.PEN 26 UNIT SUBQ ×2 (08:24→21:21)
[2024-01-23 14:55] LABS: Glucometer 155 mg/dL (74-106)
[2024-01-23] MEDS: INSULIN ASPART 300 UNIT/3 ML PEN SUBQ ×2 (15:30→21:21)
[2024-01-23 17:11] LABS: Cortisol - AM 8.4 ug/dL (6.2-19.4)
[2024-01-23] MEDS: ATORVASTATIN CALCIUM 40 MG TABLET 80 MG PO (21:08)
[2024-01-23] MEDS: FLUCONAZOLE 100 MG TABLET PO (21:10)
[2024-01-23 21:15] LABS: Glucometer 182 mg/dL (74-106)
[2024-01-24] VITALS (8 sets, daily range): BP systolic 161–166; BP diastolic 71–72; PULSE 64–77; TEMP 36.3–36.6; O2SAT 97
[2024-01-24 04:46] LABS: Basophils Percent Auto 0.5 % (0.2-2.0); Eosinophils Absolute Auto 0.1 10^3/uL (0.0-0.7); Eosinophils Percent Auto 2.3 % (0.9-7.0); Hematocrit 28.9 % (36.0-48.0); Hemoglobin 9.1 g/dL (12.0-16.0); Immature Granulocytes Abs Auto 0.01 10^3/uL (0.00-0.03); Immature Granulocytes Pct Auto 0.2 % (0.0-0.5); Lymphocytes Absolute Auto 2.1 10^3/uL (1.2-3.8); Lymphocytes Percent Auto 36.7 % (20.5-60.0); Mean Corpuscular HGB Conc 31.5 g/dL (29.9-35.2); Mean Corpuscular Hemoglobin 30.2 pg (26.7-34.0); Mean Platelet Volume 9.6 fL (9.5-13.5); Monocytes Absolute Auto 0.7 10^3/uL (0.3-0.8); Monocytes Percent Auto 11.6 % (1.7-12.0); Neutrophils Absolute Auto 2.7 10^3/uL (1.4-6.5); Neutrophils Percent Auto 48.7 % (43.0-75.0); Platelet Count 155 10^3/uL (150-450); Red Blood Count 3.01 10^6/uL (4.20-5.40); Red Cell Distribution Width 15.1 % (11.0-15.0); White Blood Count 5.6 10^3/uL (4.0-11.0)
[2024-01-24 05:11] LABS: Alanine Aminotransferase 24 U/L (14-59); Albumin Level 3.3 g/dL (3.4-5.0); Alkaline Phosphatase 73 U/L (46-116); Anion Gap 13.9; Aspartate Amino Transferase 19 U/L (15-37); BUN Creatinine Ratio 23.3; Bilirubin Total 0.4 mg/dL (0.2-1.0); Calcium 9.6 mg/dL (8.5-10.1); Carbon Dioxide 23.1 mmol/L (21.0-32.0); Chloride 104 mmol/L (98-107); Estimated GFR (African America 19 (>=60); Estimated GFR (Non-African Ame 16 (>=60); Globulin 3.2 g/dL; Glucose 85 mg/dL (74-106); Sodium 136 mmol/L (136-145); Total Protein 6.5 g/dL (6.4-8.2)
[2024-01-24] MEDS: OMEPRAZOLE 40 MG CAPSULE.DR PO (05:37)
[2024-01-24] MEDS: MAGNESIUM OXIDE 400 MG TABLET PO (05:38)
[2024-01-24] MEDS: LEVOTHYROXINE SODIUM 125 MCG TABLET PO (05:38)
[2024-01-24 07:46] LABS: Glucometer 103 mg/dL (74-106)
[2024-01-24] MEDS: INSULIN DETEMIR 300 UNIT/3 ML INSULN.PEN 26 UNIT SUBQ (08:07)
[2024-01-24] MEDS: CARVEDILOL 25 MG TABLET 50 MG PO (08:10)
[2024-01-24] MEDS: ALLOPURINOL 100 MG TABLET 50 MG PO (08:10)
--- NOTE | 2024-01-24 08:10 | P.DS_ITS ---
DS: Providers Provider Date of admission: 01/21/24 17:38 Primary care physician: Merrick Rubi MD Consults: 01/22/24 07:30 Consult to Cardiology Routine Reason for consultation: hypertensive uirgency Has provider been notified: No DS: Diagnosis Discharge Diagnosis (1) Hypertensive emergency: (2) Chronic kidney disease: Qualifiers: Chronic kidney disease stage: stage 4 (severe) Qualified Code(s): N18.4 - Chronic kidney disease, stage 4 (severe) (3) Chest pain: Qualifiers: Chest pain type: unspecified Qualified Code(s): R07.9 - Chest pain, unspecified (4) HTN (hypertension): Qualifiers: Hypertension type: unspecified Qualified Code(s): I10 - Essential (primary) hypertension (5) Diabetes: Qualifiers: Diabetes mellitus complication status: with other specified complication 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 transplanted heart: [place] heart Qualified Code(s): I25.118 - Atherosclerotic heart disease of [place] coronary artery with other forms of angina pectoris (7) S/P CABG x 1: (8) (HFpEF) heart failure with preserved ejection fraction: Qualifiers: Heart failure chronicity: acute on chronic Qualified Code(s): I50.33 - Acute on chronic diastolic (congestive) heart failure Plan On admission findings: Severely elevated blood pressure to 290/110 with end organ damage of acute diastolic heart failure, chest pressure, headache. Patient was given IV medications in ER blood pressure slowly improved. Headache improved but has not resolved. Blood pressure still over 180 systolic overnight. Family states this was similar to the time when she had her coronary artery blockage. Consult to cardiology. Cortisol and metanephrines are pending, will check ultrasound of renal arteries. : Renal artery ultrasound suggests renovascular hypertension. Unable to do dye study secondary to increasing creatinine, blood pressure is improved with restarting clonidine and increased dose of Imdur. So far that is just this morning's blood pressure though when she has not ambulated which is what in the past has caused her blood pressure to elevate. With aggressive changes in 3 different blood pressure medications yesterday, will monitor patient throughout the day today. Patient high risk for hypotension, if hypertension recurs, she will need to be transferred to tertiary care facility. Elevated BNP-with peripheral edema consistent with acute diastolic heart failure. Resolved, DC IV Lasix due to acute renal failure. Acute renal failure -creatinine a significant elevated at 3.26 this puts her with a baseline creatinine of 2, at 163% above her baseline. Will give back small amount of fluid this morning 500 cc over 5 hours. Hyperkalemia-secondary to chronic kidney disease stage IV--resolved Chronic kidney disease stage IV--progressed, see above Acute UTI started treatment day prior to admission, change patient to oral antibiotics, urine culture did not grow anything but she had already been on the antibiotics for 36 hours. Iron deficiency anemia as well as anemia of chronic kidney disease-continue with iron supplementation Insulin-dependent diabetes mellitus-sugars still in the low 200s, will increase her long-acting insulin by 6 units twice daily Hypercholesterolemia-continue with current dosing Hypothyroidism-TSH somewhat suppressed so we will decrease her Cytomel down to micrograms a day. Generalized arthritis-she has been taken off of her meloxicam, using Ultram for pain control currently GERD-continue with PPI Hypomagnesemia-continue supplementation, slightly low we will see how that progresses with diuresis Admission status: Patient presented with hypertensive emergency, blood pressure slightly better, high risk for stroke and AK. Medically necessary treatment will span 2 midnights so maintain inpatient status DS: Summary Hospital Course Hospital Course: Patient presented to the emergency room with headache, chest pressure and shortness of breath with a systolic blood pressure of 290, diastolic blood pressure of 110. Findings consistent with hypertensive emergency she was given medication in the ER with improvement in her blood pressure. Her supervisor sawmill recently had adjusted her blood pressure medications. She was placed in the intensive care unit due to the hypertensive emergency. Patient was given IV hydralazine on the first day of admission, blood pressure medications were adjusted with placing her back on her clonidine 0.2 mg twice daily, increasing the Coreg to 50 mg p.o. twice daily adding Imdur 30 mg once a day and increasing her lisinopril to 40 mg once a day. Her blood pressure was improved but still persistently elevated at times the following day. Her Imdur was increased to 60 mg a day. Throughout the day prior to discharge she had no further need for IV hydralazine. Had no near syncopal episodes. Concerned with the change in doses quickly she was high risk for fall and orthostatic hypotension, fortunately that did not happen. She is improved this morning. Her blood pressure is somewhat elevated first thing in the morning, suspect she will have some improvement in her blood pressure being in her home environment will discharge patient home in improving condition. Medications see list. Follow-up with me in the office in 3 days. Time Spent with Patient Time attestation: Total time spent providing and/or coordinating discharge services: Time spent: greater than 30 minutes Exam Constitutional Vital Signs, click to edit/add: Last Vital Signs Temp 97.9 F 01/24/24 04:00 Pulse 66 01/24/24 06:00 Resp 18 01/24/24 04:00 BP 161/71 H 01/24/24 04:00 Pulse Ox 97 01/24/24 04:00 O2 Del Method Room Air 01/24/24 04:00 Documenting provider has reviewed patient's vital signs: yes Common normals: no apparent distress, average body habitus (obese) and oriented x3 General appearance: cooperative and comfortable Nutritional appearance: obese Orientation/consciousness: Yes awake HENMT Common normals: head/scalp atraumatic Eye Common normals: EOMs intact bilaterally General eye: normal appearance of both eyes Neck & C-Spine General: normal visual inspection Chest Common normals: inspection of chest normal Respiratory Common normals: normal respiratory effort Effort & inspection: able to speak in complete sentences Auscultation: clear to auscultation bilaterally Cardio Common normals: no JVD, regular rate and regular rhythm Rate: regular rate Rhythm: regular rhythm Heart sounds: S1 normal and S2 normal Extremity Common normals: normal to inspection, no clubbing, cyanosis or edema and no pedal edema (edema resolved) Neuro Common normals: oriented x3 DS: Data Data Completed and Pending Labs on day of discharge: Labs from last 24 hours 01/24/24 01/24/24 01/23/24 07:39 04:15 21:13 WBC 5.6 RBC 3.01 L Hgb 9.1 L Hct 28.9 L MCV 96.0 MCH 30.2 MCHC 31.5 RDW 15.1 H Plt Count 155 MPV 9.6 Neut % (Auto) 48.7 Lymph % (Auto) 36.7 Brooks % (Auto) 11.6 Eos % (Auto) 2.3 Baso % (Auto) 0.5 Neut # (Auto) 2.7 Lymph # (Auto) 2.1 Brooks # (Auto) 0.7 Eos # (Auto) 0.1 Baso # (Auto) 0.0 Abs Immat Gran (auto) 0.01 Imm/Tot Granulo (auto) 0.2 Sodium 136 Potassium 5.0 Chloride 104 Carbon Dioxide 23.1 Anion Gap 13.9 BUN 67.0 H Creatinine 2.87 H Est GFR ( Amer) 19 L Est GFR (Non-Af Amer) 16 L BUN/Creatinine Ratio 23.3 Glucose 85 Calcium 9.6 Total Bilirubin 0.4 AST 19 ALT 24 Alkaline Phosphatase 73 NT-Pro-B Natriuret Pep 569.0 Total Protein 6.5 Albumin 3.3 L Globulin 3.2 Albumin/Globulin Ratio 1.0 Cortisol AM Sample POC Glucose 103 182 H 01/23/24 01/22/24 14:54 04:06 WBC RBC Hgb Hct MCV MCH MCHC RDW Plt Count MPV Neut % (Auto) Lymph % (Auto) Brooks % (Auto) Eos % (Auto) Baso % (Auto) Neut # (Auto) Lymph # (Auto) Brooks # (Auto) Eos # (Auto) Baso # (Auto) Abs Immat Gran (auto) Imm/Tot Granulo (auto) Sodium Potassium Chloride Carbon Dioxide Anion Gap BUN Creatinine Est GFR ( Amer) Est GFR (Non-Af Amer) BUN/Creatinine Ratio Glucose Calcium Total Bilirubin AST ALT Alkaline Phosphatase NT-Pro-B Natriuret Pep Total Protein Albumin Globulin Albumin/Globulin Ratio Cortisol AM Sample 8.4 POC Glucose 155 H Discharge Plan Discharge Disposition: Home, Self-Care Condition: Good Discharge Medications: New allopurinol 100 mg Tablet 50 mg PO Q48H Qty: 30 11RF tramadol 50 mg Tablet 25 mg PO Q6H PRN (Reason: Pain) Qty: 14 0RF isosorbide mononitrate 60 mg Tablet Extended Release 24 Hr 60 mg PO QD Qty: 30 11RF Levemir FlexPen 100 unit/mL (3 mL) Insulin Pen 26 unit subcut BID Qty: 15 11RF Continued atorvastatin 80 mg tablet 80 mg PO .QHS insulin aspart U-100 [Novolog FlexPen U-100 Insulin] 100 unit/mL (3 mL) insulin pen 12 unit SUBCUT DAILY Rx Instructions: 12 units am, 16units at lunch and 22 units in pm liothyronine 5 mcg tablet 10 mcg PO .QD magnesium oxide 400 mg (241.3 mg magnesium) tablet 400 mg PO TID pantoprazole 40 mg tablet,delayed release (DR/EC) 40 mg PO .QD ferrous sulfate 325 mg (65 mg iron) tablet 325 mg PO BID clonidine HCl 0.1 mg Tablet 0.2 mg PO BID Qty: 120 11RF fluconazole 100 mg tablet 100 mg PO DAILY Rx Instructions: 01/20/24-01/30/24 furosemide 20 mg tablet 20 mg PO DAILY levofloxacin 750 mg tablet 750 mg PO DAILY Rx Instructions: 01/19/24-01/29/24 levothyroxine 125 mcg tablet 125 mcg PO DAILY carvedilol 25 mg Tablet 50 mg PO BID Discontinued allopurinol 300 mg tablet 300 mg PO DAILY lisinopril 20 mg tablet 20 mg PO .once a day meloxicam 15 mg tablet 15 mg PO .QD isosorbide mononitrate 30 mg tablet extended release 24 hr 30 mg PO DAILY Print Language: Maltese Forms: Portal Instructions Follow Up Appointments: Dr Rubi SaturdayJanuary 26 at 9:45am. [phone]
[2024-01-24] MEDS: HEPARIN SODIUM (PORCINE) 5,000 UNIT/ML VIAL 5000 UNIT SUBQ (08:12)
[2024-01-24] MEDS: CLONIDINE HCL 0.1 MG TABLET 0.200000000000000011 MG PO (08:12)
[2024-01-24] MEDS: ISOSORBIDE MONONITRATE 60 MG TAB.ER.24H PO (08:14)
[2024-01-24] MEDS: LISINOPRIL 20 MG TABLET 40 MG PO (08:14)
[2024-01-24] MEDS: LIOTHYRONINE SODIUM 5 MCG TABLET PO (08:14)
[2024-01-24] MEDS: LEVOFLOXACIN 500 MG TABLET PO (08:15)
[2024-01-24] MEDS: FERROUS SULFATE 325 MG TABLET PO (08:15)
--- NOTE | 2024-01-24 08:15 | CM.NOTE ---
2nd Important Message From medicare discussed with pt, denies any questions or concerns.
[2024-01-28 00:07] LABS: Aldosterone LCMS, Serum 1.5 ng/dL (0.0-30.0)
--- NOTE | 2024-01-29 13:57 | CM.DCFOLLOWU ---
Person spoke with: Mercedez How are you feeling? Better How is your pain? No pain Did you understand your discharge instructions? Yes Do you have any questions about your discharge instructions? No Were you given any prescriptions at discharge? Yes Were you able to get your prescriptions filled? Yes Do you understand how to take your medications as ordered? Yes Do you have any questions about your follow up appointment and do you plan to keep your follow up appointment? I went Saturday Is there anything else that you would like to discuss? No Questions/Comments/Concerns/Other:
== END 2024-01-24 10:02 | disposition home or self-care (01) | DRG 304 ==
LOC: ER 17:29 → ICU 17:53 → MS 01-23 12:58
PROVIDERS: Internal Medicine; Physician Assistant; Admitting Provider Family Medicine; Emergency Provider Emergency Medicine; PCP Family Medicine; Visit Provider Family Medicine
DX: I16.0 Hypertensive urgency (principal); I50.33 Acute on chronic diastolic (congestive) heart failure; N18.4 Chronic kidney disease, stage 4 (severe); N17.9 Acute kidney failure, unspecified; N39.0 Urinary tract infection, site not specified; I13.0 Hypertensive heart and chronic kidney disease with heart failure and stage 1 through stage 4 chronic kidney disease, or unspecified chronic kidney disease; E11.22 Type 2 diabetes mellitus with diabetic chronic kidney disease; E78.00 Pure hypercholesterolemia, unspecified; I73.00 Raynaud's syndrome without gangrene; I25.118 Atherosclerotic heart disease of native coronary artery with other forms of angina pectoris; E87.5 Hyperkalemia; D50.9 Iron deficiency anemia, unspecified; D63.1 Anemia in chronic kidney disease; E03.9 Hypothyroidism, unspecified; M19.09 Primary osteoarthritis, other specified site; K21.9 Gastro-esophageal reflux disease without esophagitis; E83.42 Hypomagnesemia; Z79.899 Other long term (current) drug therapy; Z87.891 Personal history of nicotine dependence; Z95.1 Presence of aortocoronary bypass graft; Z79.4 Long term (current) use of insulin; Z79.890 Hormone replacement therapy; Z79.1 Long term (current) use of non-steroidal anti-inflammatories (NSAID); Z88.1 Allergy status to other antibiotic agents; Z88.8 Allergy status to other drugs, medicaments and biological substances; Z91.041 Radiographic dye allergy status; Z85.828 Personal history of other malignant neoplasm of skin; Z82.49 Family history of ischemic heart disease and other diseases of the circulatory system
CPT/HCPCS: 36415; 70450; 71045; 76775; 80053; 80061; 80069; 81001; 82043; 82088; 82306; 82533; 82570; 82948; 83735; 83835; 83880; 84244; 84439; 84443; 84481; 84484; 85025; 85610; 87086; 93005; 93306; 93975; 94761; 96365; 96366; 96372; 96375; 96376; 99285

== ENCOUNTER 2024-03-01 19:30 | Inpatient (IN) | payer MEDICARE, SELFPAY ==
[2024-03-01] VITALS (44 sets, daily range): BP systolic 165–243; BP diastolic 61–104; PULSE 66–83; TEMP 35.9–36.8; O2SAT 96–99; BMI 31.3; BMI 30.4
--- NOTE | 2024-03-01 19:35 | ECG_ITS ---
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
--- OUTSIDE RECORDS SUMMARY | 2024-03-01 19:40 | XMS_ITS | CCD ---
Author Organization [facility] Care Team Providers Care Parking Attendant Name Role Phone PHYSICIAN, DEFAULT Unavailable Unavailable PHYSICIAN, DEFAULT Unavailable Unavailable Doreen, Ron Unavailable Mary Anne Ackeramn Unavailable Jana Monson Unavailable FIORELLAY ., DR [...] ORN Attending Unavailable DOREEN, RON Admitting Unavailable DOREEN, RON Consulting Unavailable HOY ., DR BARTLETT Primary Care Unavailable DOREEN, RON Attending Unavailable DOREEN, RON Admitting Unavailable HOY ., DR BARTLETT Consulting Unavailable HOY ., DR BARTLETT Primary Care Unavailable HOY ., DR BARTLETT Attending Unavailable HOY ., DR DHRUV Admitting Unavailable AHDOOT, ANGELINA Consulting Unavailable ELASHI, DR SKINNER Consulting Unavailable FIORELLAY ., DR BARTLETT Primary Care Unavailable ELASHI, DR SKINNER Attending Unavailable ELASHI, DR SKINNER Admitting Unavailable WEST, DR BENI Sharif Consulting Unavailable BHAVIK ., DR BARTLETT Primary Care Unavailable MARVIN, [...] Unavailable Dhruv Rubi MD Primary Care Provider [phone] GA CRESPO Attending Unavailable GA CRESPO Attending Unavailable GREG TINEO Attending Unavailable GA CRESPO Attending Unavailable TUHAN DELVALLE Attending Unavailable DHRUV RUBI Referring Unavailable DHRUV RUBI Primary Care Unavailable [place], [facility]AB Attending Unavailable Allergies Allergy Classification Reported Allergen(s) Allergy Type Date of Onset Reaction(s) Facility (20 sources) amLODIPine; Translations: [AMLODIPINE] Drug Allergy 03-28-20 05 [facility] (20 sources) Amoxicillin / Clavulanate Drug Allergy 11-23-19 21 [facility] [employer] Other (20 sources) Contrast media Propensity to adverse reactions Unknown [employer] Other (2 sources) Doxazosin; Translations: [doxazosin] Drug Allergy Unknown [employer] Other (20 sources) Sulfamethoxazole / Trimethoprim Drug Allergy 11-23-19 21 Rash [employer] Other (20 sources) Doxazosin; Translations: [DOXAZOSIN] Drug Allergy 11-23-19 21 Unknown [employer] Other (9 sources) Amoxicillin / Clavulanate; Translations: [Augmentin] Drug Allergy 11-16-19 16 Unknown [facility] (1 source) amLODIPine Drug Allergy 04-25-20 14 [facility] (1 source) Sulfamethoxazole / Trimethoprim Drug Allergy 03-09-20 13 [facility] (3 sources) Iodinated Cont[employer] Media; Translations: [IODINATED CONTRAST MEDIA] Propensity to adverse reactions to drug 11-23-19 [facility] [employer] [facility] (2 sources) Sulfamethoxazole / Trimethoprim; Translations: [SULFAMETHOXAZOLE-T RIMETHOPRIM] Drug Allergy 08-04-20 15 [facility] (2 sources) AMOXICILLIN-POT CLAVULANATE; Translations: [AMOXICILLIN-POT CLAVULANATE] Propensity to adverse reactions to drug (disorder) 11-23-19 [facility] [employer] Repository (1 source) Sulfamethoxazole; Translations: [SULFAMETHOXAZOLE] Drug Allergy 03-12-20 23 [facility] Repository Medications Current Medications Medication Drug [...] coronary artery bypass graft , Atherosclerosis of [place] coronary artery of [place] heart without angina pectoris , Paroxysmal atrial [...] (LIPITOR) 80 mg tablet Indications: Atherosclerosis of [place] coronary artery of [place] heart without angina pectoris , H/O four [...] Active docusate sodium 50 mg / sennosides, nursing home 8.6 mg oral tablet (5 sources) take 1 tablet by mouth every twelve hours Sennosides-Docusate Sodium 8.6-50 MG 1 tablet in the evening as needed Orally every 12 hours Active epoetin johnna-epbx 43080 UNT/ML Injectable Solution [Retacrit] (14 sources) Retacrit 55104 U NIT/ML as directed Injection Active ferrous [...] Active take 1 tablet by mouth twice marquze ly take 1 tablet by mouth twice [...] Active take [address] [facility] every twenty-four hours Liothyronine Sodium 5 MCG 2 tablets on a n empty stomach Orally Once a day Active take 2 tablets by mo ut every twenty-four hours lisinopril 10 mg oral [...] in the morning. 0 12/19/2020 Active retacrit 20597 unit/ml solution (5 sources) Retacrit 94768 UNIT/ML as directed Injection Active Sennosides-Docusate Sodium [...] Chronic Coronary atherosclerosis and other heart disease (7 sources) Coronary atherosclerosis; Translations: [Atherosclerotic heart disease of [place] coronary artery without angina pectoris] Onset: 1 [...] Results Test Name Value Interpretation Reference Range Facility Office Visiton 02-10-2024 Follow-up visit [id number] Garima Robin 1945 F Date Provider Department Center 02/10/2024 [id number] No family history on file Level of Service:84331 [place] OFFICE/OUTPATIENT ESTABLISHED MOD MDM 30 MIN Normal [facility] HEMOGRAM AND PLATELon 2022 Hematocrit (Bld) [Volume fraction] 28.8 % Critically low 36.0-48.0 [facility] Comment on above: Performed By: #### H H #### [facility] [address] [place] [address] Dr. Ember Teague Hemoglobin (Bld) [Mass/Vol] 9.6 g/dL Critically low 12.0-16.0 [facility] Comment on above: Performed By: #### H H #### [facility] [address] [place] [address] Dr. Ember Teague MCH (RBC) [Entitic mass] 30.7 pg Normal 26.7-34.0 [facility] Comment on above: Performed By: #### H H #### [facility] [address] [place] [address] Dr. Ember Teague MCHC (RBC) [Mass/Vol] 33.3 g/dL Normal 29.9-35.2 [facility] Comment on above: Performed By: #### H H #### [facility] [address] [place] [address] Dr. Ember Teague MCV (RBC) [Entitic vol] 92.0 fL Normal 81.0-99.0 [facility] Comment on above: Performed By: #### H H #### [facility] [address] [place] [address] Dr. Ember Teague PLT 214 103/ul Normal 150-450 [facility] Comment on above: Performed By: #### H H #### [facility] [address] [place] [address] Dr. Ember Teague RBC 3.13 106/ul Critically low 4.20-5.40 [facility] Comment on above: Performed By: #### H H #### [facility] [address] [place] [address] Dr. Ember Teague WBC 7.4 103/ul Normal 4.0-11.0 [facility] Comment on above: Performed By: #### H H #### [facility] [address] [place] [address] Dr. Ember Teague MAGNESIUMon 01-22-2023 Magnesium [Mass/Vol] 1.8 mg/dL Normal 1.8-2.4 [facility] Comment on above: Performed By: #### M G, RENAL #### [facility] [address] [address] [address] Ember Teague RENAL FUNCTION PANELon 01-22 Albumin [Mass/Vol] 3.6 g/dL Normal 3.4-5.0 [facility] Comment on above: Performed By: #### M G, RENAL #### [facility] [address] [address] [address] Ember Teague Calcium [Mass/Vol] 9.7 mg/dL Normal 8.5-10.1 [facility] Comment on above: Performed By: #### Lico G, RENAL #### [facility] [address] [address] [address] Ember Teague Chloride [Moles/Vol] 105 mmol/L Normal 98-107 [facility] Comment on above: Performed By: #### Lico G, RENAL #### [facility] [address] [address] [address] Ember Teague CO2 [Moles/Vol] 22.6 mmol/L Normal 21.0-32.0 [facility] Comment on above: Performed By: #### M G, RENAL #### [facility] [address] [address] [address] Ember Teague Creatinine [Mass/Vol] 2.18 mg/dL Critically high 0.55-1.02 [facility] Comment on above: Performed By: #### M G, RENAL #### [facility] [address] [address] [address] Ember Teague EGFR-AF FILIPINO 26 mL/min/1.73m2 Critically low >=60 [facility] Comment on above: Performed By: #### M G, RENAL #### [facility] [address] [address] [address] Ember Teague EGFR-NON AF FILIPINO 22 mL/min/1.73m2 Critically low >=60 [facility] Comment on above: Performed By: #### M G, RENAL #### [facility] [address] [address] [address] Ember Teague Glucose [Mass/Vol] 134 mg/dL Critically high 74-106 [facility] Comment on above: Performed By: #### M G, RENAL #### [facility] [address] [address] [address] Ember Teague Phosphate [Mass/Vol] 4.6 mg/dL Normal 2.6-4.7 [facility] Comment on above: Performed By: #### M G, RENAL #### [facility] [address] [address] [address] Ember Teague Potassium [Moles/Vol] 5.1 mmol/L Normal 3.5-5.1 [facility] Comment on above: Performed By: #### M G, RENAL #### [facility] [address] [address] [address] Ember Teague Sodium [Moles/Vol] 138 mmol/L Normal 136-145 [facility] Comment on above: Performed By: #### M G, RENAL #### [facility] [address] [address] [address] Ember Teague Urea nitrogen [Mass/Vol] 61.0 mg/dL Critically high 7.0-18.0 [facility] Comment on above: Performed By: #### M G, RENAL #### [facility] [address] [place] [address] Dr. Ember Teague MG MAMM SCREEN 3D MAY CADon 12-17-2022 MG MAMM SCREEN 3D MAY CAD Patient: KYLAH ROBIN Exam Date: 12/17/2022 : 1945 Gender:F Ordering : DR DHRUV RUBI . Admission #: [id number] Family : Order #: [id number] CLICK HERE TO VIEW EXAM RADIOLOGY REPORT [...] lung cancer at age 61. LOCATION: [facility] BREAST COMPOSITION: Scattered areas fibroglandular density. [...] MD on 12/17/2022 at 11:59 Normal [facility] FERRITINon 12-10-2022 Ferritin [Mass/Vol] 681.0 ng/mL Critically high 8.0-252.0 [facility] Comment on above: Performed By: #### P THINT #### [facility] [address] [place] [address] Dr. Ember Teague HEMOGRAM AND PLATELon 2022 Hematocrit (Bld) [Volume fraction] 27.1 % Critically low 36.0-48.0 [facility] Comment on above: Performed By: #### C VDTBH #### [facility] [address] [place] [address] Dr. Ember Teague Hemoglobin (Bld) [Mass/Vol] 9.7 g/dL Critically low 12.0-16.0 [facility] Comment on above: Performed By: #### C VDTBH #### [facility] [address] [place] [address] Dr. Ember Teague MCH (RBC) [Entitic mass] 31.4 pg Normal 26.7-34.0 [facility] Comment on above: Performed By: #### C VDTBH #### [facility] [address] [place] [address] Dr. Ember Teague MCHC (RBC) [Mass/Vol] 35.8 g/dL Critically high 29.9-35.2 [facility] Comment on above: Performed By: #### C VDTBH #### [facility] [address] [place] [address] Dr. Ember Teague MCV (RBC) [Entitic vol] 87.7 fL Normal 81.0-99.0 [facility] Comment on above: Performed By: #### C VDTBH #### [facility] [address] [place] [address] Dr. Ember Teague PLT 218 103/ul Normal 150-450 [facility] Comment on above: Performed By: #### C VDTBH #### [facility] [address] [place] [address] Dr. Ember Teague RBC 3.09 106/ul Critically low 4.20-5.40 [facility] Comment on above: Performed By: #### C VDTBH #### [facility] [address] [place] [address] Dr. Ember Teague WBC 6.6 103/ul Normal 4.0-11.0 [facility] Comment on above: Performed By: #### C VDTBH #### [facility] [address] [place] [address] Dr. Ember Teague IRON AND TIBCon 12-10-2022 % SATURATION 30.2 % Normal [facility] Comment on above: Performed By: #### P THINT #### [facility] [address] [place] [address] Dr. Ember Teague Iron [Mass/Vol] 84.0 ug/dL Normal 50.0-170.0 [facility] Comment on above: Performed By: #### P THINT #### [facility] [address] [place] [address] Dr. Ember Teague TIBC DIRECT 278.0 ug/dL Normal 250.0-450.0 [facility] Comment on above: Performed By: #### P THINT #### [facility] [address] [place] [address] Dr. Ember Teague XR FOOT MAY MIN [...] BENI APARICIO Date: 2022-11-20 14:03 Normal [facility] HEMOGRAM AND PLATELon 2022 Hematocrit (Bld) [Volume fraction] 27.7 % Critically low 36.0-48.0 [facility] Comment on above: Performed By: #### R ENAL #### [facility] [address] [place] [address] Dr. Ember Teague Hemoglobin (Bld) [Mass/Vol] 10.0 g/dL Critically low 12.0-16.0 [facility] Comment on above: Performed By: #### R ENAL #### [facility] [address] [place] [address] Dr. Ember Teague MCH (RBC) [Entitic mass] 31.6 pg Normal 26.7-34.0 [facility] Comment on above: Performed By: #### R ENAL #### [facility] [address] [place] [address] Dr. Ember Teague MCHC (RBC) [Mass/Vol] 36.1 g/dL Critically high 29.9-35.2 [facility] Comment on above: Performed By: #### R ENAL #### [facility] [address] [place] [address] Dr. Ember Teague MCV (RBC) [Entitic vol] 87.7 fL Normal 81.0-99.0 [facility] Comment on above: Performed By: #### R ENAL #### [facility] [address] [address] [address] Ember Teague PLT 182 103/ul Normal 150-450 [facility] Comment on above: Performed By: #### R ENAL #### [facility] [address] [place] [address] Dr. Ember Teague RBC 3.16 106/ul Critically low 4.20-5.40 [facility] Comment on above: Performed By: #### R ENAL #### [facility] [address] [place] [address] Dr. Ember Teague WBC 6.8 103/ul Normal 4.0-11.0 [facility] Comment on above: Performed By: #### R ENAL #### [facility] [address] [place] [address] Dr. Ember Teague PROF CHEM 8 (BAS METB)on Anion gap [Moles/Vol] 17.6 mmol/L Normal [facility] Comment on above: Performed By: #### C VDTBH #### [facility] [address] [place] [address] Dr. Ember Teague Calcium [Mass/Vol] 9.0 mg/dL Normal 8.5-10.1 [facility] Comment on above: Performed By: #### C VDTBH #### [facility] [address] [place] [address] Dr. Ember Teague Chloride [Moles/Vol] 104 mmol/L Normal 98-107 [facility] Comment on above: Performed By: #### C VDTBH #### [facility] [address] [place] [address] Dr. Ember Teague CO2 [Moles/Vol] 22.2 mmol/L Normal 21.0-32.0 [facility] Comment on above: Performed By: #### C VDTBH #### [facility] [address] [place] [address] Dr. Ember Teague Creatinine [Mass/Vol] 2.03 mg/dL Critically high 0.55-1.02 [facility] Comment on above: Performed By: #### C VDTBH #### [facility] [address] [address] [address] Ember Teague EGFR-AF FILIPINO 29 mL/min/1.73m2 Critically low >=60 [facility] Comment on above: Performed By: #### C VDTBH #### [facility] [address] [address] [address] Ember Teague EGFR-NON AF FILIPINO 24 mL/min/1.73m2 Critically low >=60 [facility] Comment on above: Performed By: #### C VDTBH #### [facility] [address] [address] [address] Ember Teague Glucose [Mass/Vol] 154 mg/dL Critically high 74-106 [facility] Comment on above: Performed By: #### C VDTBH #### [facility] [address] [address] [address] Ember Teague Potassium [Moles/Vol] 4.8 mmol/L Normal 3.5-5.1 [facility] Comment on above: Performed By: #### C VDTBH #### [facility] [address] [address] [address] Ember Teague Sodium [Moles/Vol] 139 mmol/L Normal 136-145 [facility] Comment on above: Performed By: #### C VDTBH #### [facility] [address] [address] [address] Ember Teague Urea nitrogen [Mass/Vol] 43.0 mg/dL Critically high 7.0-18.0 [facility] Comment on above: Performed By: #### C VDTBH #### [facility] [address] [address] [address] Ember Teague Urea nitrogen/Creatinine [Mass ratio] 21.2 mg/mg Normal [facility] Comment on above: Performed By: #### C VDTBH #### [facility] [address] [address] [address] Ember Teague CULTURE SPUTUMon 10-24-2022 CULTURE SPUTUM Culture Observations : Beta lactamase positive Isolate 1 Haemophilus influenzae Moderate growth of Normal [facility] Comment on above: Performed By: #### R ENAL #### [facility] [address] [address] [address] Ember Teague SPUTUM GRAM STAINon 10-24-19 COMMENTS Normal [facility] Comment on above: Performed By: #### R ENAL #### [facility] [address] [address] [address] Ember Teague DIPHTHEROIDS Normal [facility] Comment on above: Performed By: #### R ENAL #### [facility] [address] [address] [address] Ember Teague EPITHELIALS >25 Normal [facility] Comment on above: Performed By: #### R ENAL #### [facility] [address] [address] [address] Ember Teague FUNGAL ELEMENTS Normal [facility] Comment on above: Performed By: #### R ENAL #### [facility] [address] [address] [address] Ember Teague GRAM NEG BACILLI [facility] Comment on above: Performed By: #### R ENAL #### [facility] [address] [address] [address] Ember LOCKWOOD NEG DIPPLOCOCCI FEW Normal [facility] Comment on above: Performed By: #### R ENAL #### [facility] [address] [address] [address] Ember Teague GRAM POS BACILLI FEW Normal [facility] Comment on above: Performed By: #### R ENAL #### [facility] [address] [address] [address] Ember Teague GRAM POSITIVE COCCI MANY Normal [facility] Comment on above: Performed By: #### R ENAL #### [facility] [address] [address] [address] Ember Teague WBC (Bld) [#/Vol] 10*3/uL Normal [facility] Comment on above: Performed By: #### R ENAL #### [facility] [address] [address] [address] Ember Teague XR CHEST 2 Von [...] ANGELINA BRISENO Date: 2022-10-24 16:22 Normal [facility] FERRITINon 09-18-2022 Ferritin [Mass/Vol] 612.0 ng/mL Critically high 8.0-252.0 [facility] Comment on above: Performed By: #### F ERR, FETIBC #### [facility] [address] [place] [address] Dr. Ember Teague HEMOGRAM AND PLATELon 2021 Hematocrit (Bld) [Volume fraction] 28.1 % Critically low 36.0-48.0 [facility] Comment on above: Performed By: #### C BC #### [facility] [address] [place] [address] Dr. Ember Teague Hemoglobin (Bld) [Mass/Vol] 9.7 g/dL Critically low 12.0-16.0 [facility] Comment on above: Performed By: #### C BC #### [facility] [address] [place] [address] Dr. Ember Teague MCH (RBC) [Entitic mass] 31.3 pg Normal 26.7-34.0 [facility] Comment on above: Performed By: #### C BC #### [facility] [address] [place] [address] Dr. Ember Teague MCHC (RBC) [Mass/Vol] 34.5 g/dL Normal 29.9-35.2 [facility] Comment on above: Performed By: #### C BC #### [facility] [address] [place] [address] Dr. Ember Teague MCV (RBC) [Entitic vol] 90.6 fL Normal 81.0-99.0 [facility] Comment on above: Performed By: #### C BC #### [facility] [address] [place] [address] Dr. Ember Teague PLT 183 103/ul Normal 150-450 [facility] Comment on above: Performed By: #### C BC #### [facility] [address] [address] [address] Ember Teague RBC 3.10 106/ul Critically low 4.20-5.40 [facility] Comment on above: Performed By: #### C BC #### [facility] [address] [place] [address] Dr. Ember Teague WBC 7.2 103/ul Normal 4.0-11.0 [facility] Comment on above: Performed By: #### C BC #### [facility] [address] [place] [address] Dr. Ember Teague IRON AND TIBCon 09-18-2022 % SATURATION 36.0 % Normal [facility] Comment on above: Performed By: #### F ERR, FETIBC #### [facility] [address] [place] [address] Dr. Ember Teague Iron [Mass/Vol] 77.0 ug/dL Normal 50.0-170.0 [facility] Comment on above: Performed By: #### F ERR, FETIBC #### [facility] [address] [place] [address] Dr. Ember Teague TIBC DIRECT 214.0 ug/dL Critically low 250.0-450.0 [facility] Comment on above: Performed By: #### F ERR, FETIBC #### [facility] [address] [place] [address] Dr. Ember Teague RENAL FUNCTION PANELon 09-18 Albumin [Mass/Vol] 3.7 g/dL Normal 3.4-5.0 [facility] Comment on above: Performed By: #### R ENAL #### [facility] [address] [place] [address] Dr. Ember Teague Calcium [Mass/Vol] 9.5 mg/dL Normal 8.5-10.1 [facility] Comment on above: Performed By: #### R ENAL #### [facility] [address] [address] [address] Ember Teague Chloride [Moles/Vol] 103 mmol/L Normal 98-107 [facility] Comment on above: Performed By: #### R ENAL #### [facility] [address] [place] [address] Dr. Ember Teague CO2 [Moles/Vol] 21.1 mmol/L Normal 21.0-32.0 [facility] Comment on above: Performed By: #### R ENAL #### [facility] [address] [place] [address] Dr. Ember Teague Creatinine [Mass/Vol] 1.85 mg/dL Critically high 0.55-1.02 [facility] Comment on above: Performed By: #### R ENAL #### [facility] [address] [place] [address] Dr. Ember Teague EGFR-AF FILIPINO 32 mL/min/1.73m2 Critically low >=60 [facility] Comment on above: Performed By: #### R ENAL #### [facility] [address] [place] [address] Dr. Ember Teague EGFR-NON AF FILIPINO 26 mL/min/1.73m2 Critically low >=60 [facility] Comment on above: Performed By: #### R ENAL #### [facility] [address] [place] [address] Dr. Ember Teague Glucose [Mass/Vol] 183 mg/dL Critically high 74-106 [facility] Comment on above: Performed By: #### R ENAL #### [facility] [address] [place] [address] Dr. Ember Teague Phosphate [Mass/Vol] 3.7 mg/dL Normal 2.6-4.7 [facility] Comment on above: Performed By: #### R ENAL #### [facility] [address] [place] [address] Dr. Ember Teague Potassium [Moles/Vol] 4.9 mmol/L Normal 3.5-5.1 [facility] Comment on above: Performed By: #### R ENAL #### [facility] [address] [place] [address] Dr. Ember Teague Sodium [Moles/Vol] 138 mmol/L Normal 136-145 [facility] Comment on above: Performed By: #### R ENAL #### [facility] [address] [place] [address] Dr. Ember Teague Urea nitrogen [Mass/Vol] 40.0 mg/dL Critically high 7.0-18.0 [facility] Comment on above: Performed By: #### R ENAL #### [facility] [address] [place] [address] Dr. Ember Teague CULTURE URINEon 09-15-2022 CULTURE [...] hoxazole <=20 S F Normal [facility] Comment on above: Performed By: #### R ENAL #### [facility] [address] [place] [address] Dr. Ember Teague BNPon 09-11-2022 Natriuretic peptide B (Bld) [Mass/Vol] 408.0 pg/mL Normal <=1,800.0 [facility] Comment on above: Performed By: #### P THINT #### [facility] [address] [place] [address] Dr. Ember Teague CBC AUTO DIFFon 09-11-2022 BASO # 0.0 103/ul Normal 0.0-0.1 [facility] Comment on above: Performed By: #### C BC #### [facility] [address] [address] [address] Ember Teague Basophils/100 WBC (Bld) 0.3 % Normal 0.2-2.0 [facility] Comment on above: Performed By: #### C BC #### [facility] [address] [address] [address] Ember Teague EO # 0.1 103/ul Normal 0.0-0.7 [facility] Comment on above: Performed By: #### C BC #### [facility] [address] [address] [address] Ember Teague Eosinophils/100 WBC (Bld) 1.9 % Normal 0.9-7.0 [facility] Comment on above: Performed By: #### C BC #### [facility] [address] [place] [address] Dr. Ember Teague Erythrocyte distribution width (RBC) [Ratio] 15.2 % Critically high 11.0-15.0 [facility] Comment on above: Performed By: #### C BC #### [facility] [address] [place] [address] Dr. Ember Teague Hematocrit (Bld) [Volume fraction] 26.6 % Critically low 36.0-48.0 [facility] Comment on above: Performed By: #### C BC #### [facility] [address] [place] [address] Dr. Ember Teague Hemoglobin (Bld) [Mass/Vol] 9.0 g/dL Critically low 12.0-16.0 [facility] Comment on above: Performed By: #### C BC #### [facility] [address] [place] [address] Dr. Ember Teague IG # 0.02 10e3/ul Normal 0.00-0.03 [facility] Comment on above: Performed By: #### C BC #### [facility] [address] [place] [address] Dr. Ember Teague IG % 0.3 % Normal 0.0-0.5 [facility] Comment on above: Performed By: #### C BC #### [facility] [address] [place] [address] Dr. Ember Teague LYMPH # 1.9 103/ul Normal 1.2-3.8 [facility] Comment on above: Performed By: #### C BC #### [facility] [address] [place] [address] Dr. Ember Teague Lymphocytes/100 WBC (Bld) 32.4 % Normal 20.5-60.0 [facility] Comment on above: Performed By: #### C BC #### [facility] [address] [place] [address] Dr. Ember Teague MANUAL DIFF REQ NO Normal [facility] Comment on above: Performed By: #### C BC #### [facility] [address] [place] [address] Dr. Ember Teague MCH (RBC) [Entitic mass] 31.1 pg Normal 26.7-34.0 [facility] Comment on above: Performed By: #### C BC #### [facility] [address] [place] [address] Dr. Ember Teague MCHC (RBC) [Mass/Vol] 33.8 g/dL Normal 29.9-35.2 [facility] Comment on above: Performed By: #### C BC #### [facility] [address] [place] [address] Dr. Ember Teague MCV (RBC) [Entitic vol] 92.0 fL Normal 81.0-99.0 [facility] Comment on above: Performed By: #### C BC #### [facility] [address] [place] [address] Dr. Ember Teague MONO # 0.6 103/ul Normal 0.3-0.8 [facility] Comment on above: Performed By: #### C BC #### [facility] [address] [place] [address] Dr. Ember Teague Monocytes/100 WBC (Bld) 10.0 % Normal 1.7-12.0 [facility] Comment on above: Performed By: #### C BC #### [facility] [address] [address] [address] Ember Teague NEUT # 3.2 103/ul Normal 1.4-6.5 [facility] Comment on above: Performed By: #### C BC #### [facility] [address] [address] [address] Ember Teague Neutrophils/100 WBC (Bld) 55.1 % Normal 43.0-75.0 [facility] Comment on above: Performed By: #### C BC #### [facility] [address] [address] [address] Ember Teague Platelet mean volume (Bld) [Entitic vol] 9.4 fL Critically low 9.5-13.5 [facility] Comment on above: Performed By: #### C BC #### [facility] [address] [place] [address] Dr. Ember Teague PLT 196 103/ul Normal 150-450 [facility] Comment on above: Performed By: #### C BC #### [facility] [address] [place] [address] Dr. Ember Teague RBC 2.89 106/ul Critically low 4.20-5.40 [facility] Comment on above: Performed By: #### C BC #### [facility] [address] [place] [address] Dr. Ember Teague WBC 5.8 103/ul Normal 4.0-11.0 [facility] Comment on above: Performed By: #### C BC #### [facility] [address] [place] [address] Dr. Ember Teague PROF 14(COMP METB)on 022 Albumin [Mass/Vol] 3.7 g/dL Normal 3.4-5.0 [facility] Comment on above: Performed By: #### P THINT #### [facility] [address] [place] [address] Dr. Ember Teague Albumin/Globulin [Mass ratio] 1.0 {ratio} Normal [facility] Comment on above: Performed By: #### P THINT #### [facility] [address] [address] [address] Ember Teague ALP [Catalytic activity/Vol] 79 U/L Normal 46-116 [facility] Comment on above: Performed By: #### P THINT #### [facility] [address] [address] [address] Ember Teague ALT [Catalytic activity/Vol] 24 U/L Normal 14-59 [facility] Comment on above: Performed By: #### P THINT #### [facility] [address] [address] [address] Ember Teague Anion gap [Moles/Vol] 12.8 mmol/L Normal [facility] Comment on above: Performed By: #### P THINT #### [facility] [address] [address] [address] Ember Teague AST [Catalytic activity/Vol] 17 U/L Normal 15-37 [facility] Comment on above: Performed By: #### P THINT #### [facility] [address] [address] [address] Ember Teague Bilirubin [Mass/Vol] 0.5 mg/dL Normal 0.2-1.0 [facility] Comment on above: Performed By: #### P THINT #### [facility] [address] [address] [address] Ember Teague Calcium [Mass/Vol] 9.4 mg/dL Normal 8.5-10.1 [facility] Comment on above: Performed By: #### P THINT #### [facility] [address] [address] [address] Ember Teague Chloride [Moles/Vol] 101 mmol/L Normal 98-107 [facility] Comment on above: Performed By: #### P THINT #### [facility] [address] [address] [address] Ember Teague CO2 [Moles/Vol] 24.3 mmol/L Normal 21.0-32.0 [facility] Comment on above: Performed By: #### P THINT #### [facility] [address] [address] [address] Ember Teague Creatinine [Mass/Vol] 2.84 mg/dL Critically high 0.55-1.02 [facility] Comment on above: Performed By: #### P THINT #### [facility] [address] [address] [address] Ember Teague EGFR-AF FILIPINO 20 mL/min/1.73m2 Critically low >=60 [facility] Comment on above: Performed By: #### P THINT #### [facility] [address] [address] [address] Ember Teague EGFR-NON AF FILIPINO 16 mL/min/1.73m2 Critically low >=60 [facility] Comment on above: Performed By: #### P THINT #### [facility] [address] [address] [address] Ember Teague Globulin (S) [Mass/Vol] 3.7 g/dL Normal [facility] Comment on above: Performed By: #### P THINT #### [facility] [address] [address] [address] Ember Teague Glucose [Mass/Vol] 174 mg/dL Critically high 74-106 T [facility] Comment on above: Performed By: #### P THINT #### [facility] [address] [address] [address] Ember Teague Potassium [Moles/Vol] 5.1 mmol/L Normal 3.5-5.1 [facility] Comment on above: Performed By: #### P THINT #### [facility] [address] [address] [address] Ember Teague Protein [Mass/Vol] 7.4 g/dL Normal 6.4-8.2 [facility] Comment on above: Performed By: #### P THINT #### [facility] [address] [address] [address] Ember Teague Sodium [Moles/Vol] 133 mmol/L Critically low 136-[address] [facility] Comment on above: Performed By: #### P THINT #### [facility] [address] [place] [address] Dr. Ember Teague Urea nitrogen [Mass/Vol] 68.0 mg/dL Critically high 7.0-18.0 [facility] Comment on above: Performed By: #### P THINT #### [facility] [address] [place] [address] Dr. Ember Teague Urea nitrogen/Creatinine [Mass ratio] 23.9 mg/mg Normal [facility] Comment on above: Performed By: #### P THINT #### [facility] [address] [place] [address] Dr. Ember Teague TROPONIN, HIGH SENSITIVITYon 09-11-2022 HSTROP 9.1 pg/mL Normal 4.0-51.3 [facility] Comment on above: Result Comment: CUT- OFF POINTS HAVE BEEN ESTABLISHED BASED ON THE FOURTH UNIVERSAL DEFINITIONS OF MYOCARDIAL INFARCTION. THE UPPER REFERENCE LIMIT (URL) OF TROPONIN, DEFINED THE 99TH PERCENTILE OF cTnI DISTRIBUTION IN A REFERENCE POPULATION, HAS BEEN CONFIRMED THE DECISION THRESHOLD FOR AL DIAGNOSIS. Performed By: #### P THINT #### [facility] [address] [place] [address] Dr. Ember Teague UA RANDOM W/MICROSCOPICon BACTERIA NONE SEEN Normal NONE SEEN [facility] Comment on above: Performed By: #### C VDTBH #### [facility] [address] [place] [address] Dr. Ember Teague Bilirubin Ql (U) Negative Normal NEGATIVE [facility] Comment on above: Performed By: #### C VDTBH #### [facility] [address] [place] [address] Dr. Ember Teague CAST NONE SEEN Normal NONE SEEN [facility] Comment on above: Performed By: #### C VDTBH #### [facility] [address] [place] [address] Dr. Ember Teague Clarity (U) CLEAR Normal CLEAR [facility] Comment on above: Performed By: #### C VDTBH #### [facility] [address] [place] [address] Dr. Ember Teague Color (U) LT. YELLOW Normal YELLOW [facility] Comment on above: Performed By: #### C VDTBH #### [facility] [address] [address] [address] Ember Teague Crystals LM Nom (Urine sed) NONE SEEN Normal NONE SEEN [facility] Comment on above: Performed By: #### C VDTBH #### [facility] [address] [address] [address] Ember Teague Epithelial cells LM Ql (Urine sed) FEW Abnormal NONE SEEN /RARE [facility] Comment on above: Performed By: #### C VDTBH #### [facility] [address] [address] [address] Ember Teague Glucose Ql (U) Negative Normal NEGATIVE [facility] Comment on above: Performed By: #### C VDTBH #### [facility] [address] [place] [address] Dr. Ember Teague Hemoglobin Ql (U) Negative Normal NEGATIVE [facility] Comment on above: Performed By: #### C VDTBH #### [facility] [address] [place] [address] Dr. Ember Teague Ketones Ql (U) Negative Normal NEGATIVE [facility] Comment on above: Performed By: #### C VDTBH #### [facility] [address] [place] [address] Dr. Ember Teague LEUKOCYTES Negative Normal NEGATIVE [facility] Comment on above: Performed By: #### C VDTBH #### [facility] [address] [place] [address] Dr. Ember Teague MUCOUS NONE SEEN Normal NONE SEEN [facility] Comment on above: Performed By: #### C VDTBH #### [facility] [address] [address] [address] Ember Teague Nitrite Ql (U) Negative Normal NEGATIVE [facility] Comment on above: Performed By: #### C VDTBH #### [facility] [address] [place] [address] Dr. Ember Teague pH (U) 5.5 [pH] Normal 5-9 [facility] Comment on above: Performed By: #### C VDTBH #### [facility] [address] [place] [address] Dr. Ember Teague RBC NONE SEEN Abnormal 0-2 [facility] Comment on above: Performed By: #### C VDTBH #### [facility] [address] [place] [address] Dr. Ember Teague SPEC GRAVITY 1.010 Normal 1.005-<=1.025 [facility] Comment on above: Performed By: #### C VDTBH #### [facility] [address] [place] [address] Dr. Ember Teague UA PROTEIN Negative Normal NEGATIVE/ TRACE [facility] Comment on above: Performed By: #### C VDTBH #### [facility] [address] [place] [address] Dr. Ember Teague Urobilinogen Qn (U) 0.2 {Esau'U}/dL Normal 0.2 - 1. 0 [facility] Comment on above: Performed By: #### C VDTBH #### [facility] [address] [place] [address] Dr. Ember Teague WBC NONE SEEN Normal NONE SEEN [facility] Comment on above: Performed By: #### C VDTBH #### [facility] [address] [place] [address] Dr. Ember Teague CBC AUTO DIFFon 08-13-2022 BASO # 0.0 103/ul Normal 0.0-0.1 [facility] Comment on above: Performed By: #### C BC #### [facility] [address] [place] [address] Dr. Ember Teague Basophils/100 WBC (Bld) 0.3 % Normal 0.2-2.0 [facility] Comment on above: Performed By: #### C BC #### [facility] [address] [place] [address] Dr. Ember Teague EO # 0.2 103/ul Normal 0.0-0.7 [facility] Comment on above: Performed By: #### C BC #### [facility] [address] [place] [address] Dr. Ember Teague Eosinophils/100 WBC (Bld) 3.7 % Normal 0.9-7.0 [facility] Comment on above: Performed By: #### C BC #### [facility] [address] [place] [address] Dr. Ember Teague Erythrocyte distribution width (RBC) [Ratio] 15.0 % Normal 11.0-15.0 [facility] Comment on above: Performed By: #### C BC #### [facility] [address] [place] [address] Dr. Ember Teague Hematocrit (Bld) [Volume fraction] 27.9 % Critically low 36.0-48.0 [facility] Comment on above: Performed By: #### C BC #### [facility] [address] [place] [address] Dr. Ember Teague Hemoglobin (Bld) [Mass/Vol] 9.7 g/dL Critically low 12.0-16.0 [facility] Comment on above: Performed By: #### C BC #### [facility] [address] [place] [address] Dr. Ember Teague IG # 0.01 10e3/ul Normal 0.00-0.03 [facility] Comment on above: Performed By: #### C BC #### [facility] [address] [place] [address] Dr. Ember Teague IG % 0.2 % Normal 0.0-0.5 [facility] Comment on above: Performed By: #### C BC #### [facility] [address] [place] [address] Dr. Ember Teague LYMPH # 1.9 103/ul Normal 1.2-3.8 [facility] Comment on above: Performed By: #### C BC #### [facility] [address] [place] [address] Dr. Ember Teague Lymphocytes/100 WBC (Bld) 32.2 % Normal 20.5-60.0 [facility] Comment on above: Performed By: #### C BC #### [facility] [address] [place] [address] Dr. Ember Teague MANUAL DIFF REQ NO Normal [facility] Comment on above: Performed By: #### C BC #### [facility] [address] [place] [address] Dr. Ember Teague MCH (RBC) [Entitic mass] 31.4 pg Normal 26.7-34.0 [facility] Comment on above: Performed By: #### C BC #### [facility] [address] [place] [address] Dr. Ember Teague MCHC (RBC) [Mass/Vol] 34.8 g/dL Normal 29.9-35.2 [facility] Comment on above: Performed By: #### C BC #### [facility] [address] [place] [address] Dr. Ember Teague MCV (RBC) [Entitic vol] 90.3 fL Normal 81.0-99.0 [facility] Comment on above: Performed By: #### C BC #### [facility] [address] [place] [address] Dr. Ember Teague MONO # 0.6 103/ul Normal 0.3-0.8 [facility] Comment on above: Performed By: #### C BC #### [facility] [address] [place] [address] Dr. Ember Teague Monocytes/100 WBC (Bld) 9.8 % Normal 1.7-12.0 [facility] Comment on above: Performed By: #### C BC #### [facility] [address] [place] [address] Dr. Ember Teague NEUT # 3.2 103/ul Normal 1.4-6.5 [facility] Comment on above: Performed By: #### C BC #### [facility] [address] [place] [address] Dr. Ember Teague Neutrophils/100 WBC (Bld) 53.8 % Normal 43.0-75.0 [facility] Comment on above: Performed By: #### C BC #### [facility] [address] [place] [address] Dr. Ember Teague Platelet mean volume (Bld) [Entitic vol] 10.0 fL Normal 9.5-13.5 [facility] Comment on above: Performed By: #### C BC #### [facility] [address] [place] [address] Dr. Ember Teague PLT 194 103/ul Normal 150-450 [facility] Comment on above: Performed By: #### C BC #### [facility] [address] [place] [address] Dr. Ember Teague RBC 3.09 106/ul Critically low 4.20-5.40 [facility] Comment on above: Performed By: #### C BC #### [facility] [address] [place] [address] Dr. Ember Teague WBC 6.0 103/ul Normal 4.0-11.0 [facility] Comment on above: Performed By: #### C BC #### [facility] [address] [place] [address] Dr. Ember Teague PTH INTACTon 06-26-2022 PTH, Intact 39 pg/mL Normal 15-65 [facility] Comment on above: Performed By: #### P THINT #### [facility] [address] [place] [address] Dr. Ember Teague CBC AUTO DIFFon 06-25-2022 BASO # 0.1 103/ul Normal 0.0-0.1 [facility] Comment on above: Performed By: #### C VDTBH #### [facility] [address] [place] [address] Dr. Ember Teague Basophils/100 WBC (Bld) 0.6 % Normal 0.2-2.0 [facility] Comment on above: Performed By: #### C VDTBH #### [facility] [address] [place] [address] Dr. Ember Teague EO # 0.2 103/ul Normal 0.0-0.7 [facility] Comment on above: Performed By: #### C VDTBH #### [facility] [address] [place] [address] Dr. Ember Teague Eosinophils/100 WBC (Bld) 3.0 % Normal 0.9-7.0 [facility] Comment on above: Performed By: #### C VDTBH #### [facility] [address] [place] [address] Dr. Ember Teague Erythrocyte distribution width (RBC) [Ratio] 14.2 % Normal 11.0-15.0 [facility] Comment on above: Performed By: #### C VDTBH #### [facility] [address] [place] [address] Dr. Ember Teague Hematocrit (Bld) [Volume fraction] 30.9 % Critically low 36.0-48.0 [facility] Comment on above: Performed By: #### C VDTBH #### [facility] [address] [place] [address] Dr. Ember Teague Hemoglobin (Bld) [Mass/Vol] 10.6 g/dL Critically low 12.0-16.0 [facility] Comment on above: Performed By: #### C VDTBH #### [facility] [address] [place] [address] Dr. Ember Teague IG # 0.04 10e3/ul Critically high 0.00-0.03 [facility] Comment on above: Performed By: #### C VDTBH #### [facility] [address] [place] [address] Dr. Ember Teague IG % 0.5 % Normal 0.0-0.5 [facility] Comment on above: Performed By: #### C VDTBH #### [facility] [address] [place] [address] Dr. Ember Teague LYMPH # 2.2 103/ul Normal 1.2-3.8 [facility] Comment on above: Performed By: #### C VDTBH #### [facility] [address] [place] [address] Dr. Ember Teague Lymphocytes/100 WBC (Bld) 27.0 % Normal 20.5-60.0 [facility] Comment on above: Performed By: #### C VDTBH #### [facility] [address] [place] [address] Dr. Ember Teague MANUAL DIFF REQ NO Normal [facility] Comment on above: Performed By: #### C VDTBH #### [facility] [address] [place] [address] Dr. Ember Teague MCH (RBC) [Entitic mass] 31.2 pg Normal 26.7-34.0 [facility] Comment on above: Performed By: #### C VDTBH #### [facility] [address] [place] [address] Dr. Ember Teague MCHC (RBC) [Mass/Vol] 34.3 g/dL Normal 29.9-35.2 [facility] Comment on above: Performed By: #### C VDTBH #### [facility] [address] [place] [address] Dr. Ember Teague MCV (RBC) [Entitic vol] 90.9 fL Normal 81.0-99.0 [facility] Comment on above: Performed By: #### C VDTBH #### [facility] [address] [place] [address] Dr. Ember Teague MONO # 0.7 103/ul Normal 0.3-0.8 [facility] Comment on above: Performed By: #### C VDTBH #### [facility] [address] [place] [address] Dr. Ember Teague Monocytes/100 WBC (Bld) 9.2 % Normal 1.7-12.0 [facility] Comment on above: Performed By: #### C VDTBH #### [facility] [address] [place] [address] Dr. Ember Teague NEUT # 4.8 103/ul Normal 1.4-6.5 [facility] Comment on above: Performed By: #### C VDTBH #### [facility] [address] [place] [address] Dr. Ember Teague Neutrophils/100 WBC (Bld) 59.7 % Normal 43.0-75.0 [facility] Comment on above: Performed By: #### C VDTBH #### [facility] [address] [address] [address] Ember Teague Platelet mean volume (Bld) [Entitic vol] 9.3 fL Critically low 9.5-13.5 [facility] Comment on above: Performed By: #### C VDTBH #### [facility] [address] [address] [address] Ember Teague PLT 227 103/ul Normal 150-450 [facility] Comment on above: Performed By: #### C VDTBH #### [facility] [address] [address] [address] Ember Teague RBC 3.40 106/ul Critically low 4.20-5.40 [facility] Comment on above: Performed By: #### C VDTBH #### [facility] [address] [address] [address] Ember Teague WBC 8.0 103/ul Normal 4.0-11.0 [facility] Comment on above: Performed By: #### C VDTBH #### [facility] [address] [address] [address] Ember Teague MRI LSPINE WO CONon [...] YANET HUERTA Date: 2022-06-25 08:45 Normal [facility] RENAL FUNCTION PANELon 06-25 Albumin [Mass/Vol] 3.9 g/dL Normal 3.4-5.0 [facility] Comment on above: Performed By: #### P THINT #### [facility] [address] [address] [address] Ember Teague Calcium [Mass/Vol] 9.5 mg/dL Normal 8.5-10.1 [facility] Comment on above: Performed By: #### P THINT #### [facility] [address] [address] [address] Ember Teague Chloride [Moles/Vol] 102 mmol/L Normal 98-107 [facility] Comment on above: Performed By: #### P THINT #### [facility] [address] [address] [address] Ember Teague CO2 [Moles/Vol] 23.8 mmol/L Normal 21.0-32.0 [facility] Comment on above: Performed By: #### P THINT #### [facility] [address] [address] [address] Ember Teague Creatinine [Mass/Vol] 1.75 mg/dL Critically high 0.55-1.02 [facility] Comment on above: Performed By: #### P THINT #### [facility] [address] [address] [address] Ember Teague EGFR-AF FILIPINO 34 mL/min/1.73m2 Critically low >=60 [facility] Comment on above: Performed By: #### P THINT #### [facility] [address] [address] [address] Ember Teague EGFR-NON AF FILIPINO 28 mL/min/1.73m2 Critically low >=60 [facility] Comment on above: Performed By: #### P THINT #### [facility] [address] [address] [address] Ember Teague Glucose [Mass/Vol] 199 mg/dL Critically high 74-106 T [facility] Comment on above: Performed By: #### P THINT #### [facility] [address] [address] [address] Ember Teague Phosphate [Mass/Vol] 4.3 mg/dL Normal 2.6-4.7 [facility] Comment on above: Performed By: #### P THINT #### [facility] [address] [address] [address] Ember Teague Potassium [Moles/Vol] 4.9 mmol/L Normal 3.5-5.1 [facility] Comment on above: Performed By: #### P THINT #### [facility] [address] [address] [address] Ember Teague Sodium [Moles/Vol] 135 mmol/L Critically low 136-[address] [facility] Comment on above: Performed By: #### P THINT #### [facility] [address] [address] [address] Ember Teague Urea nitrogen [Mass/Vol] 34.0 mg/dL Critically high 7.0-18.0 [facility] Comment on above: Performed By: #### P THINT #### [facility] [address] [address] [address] Ember Teague VITAMIN D 25 OHon 06-25-2022 VIT D 25-OH 40.6 ng/mL Normal [facility] Comment on above: Performed By: #### P THINT #### [facility] [address] [address] [address] Ember Teague VIT D RANGES SEE BELOW Normal [facility] Comment on above: Result Comment: <20 ng/mL Vit D deficient 20 - <30 ng/mL Vit D insufficient 30 - 100 ng/mL Vit D sufficient >100 ng/mL Potential Toxicity Performed By: #### P THINT #### [facility] [address] [place] [address] Dr. Ember Teague Covid-19 PCR ([facility])on 06-07 SARS-CoV-2 (COVID-19) RNA ALEXX+probe Ql (Unsp spec) Not detected Normal NOT DETECTED [facility] Comment on above: Result Comment: This test is not yet approved or cleared by the [place] FDA. When there are no FDA-approved or cleared tests available, and other criteria are met, FDA can make tests available under an emergency access mechanism called an Emergency Use Authorization (EUA). The EUA for this test is supported by the [place] of Health and Human Service's (HHS's) declaration [...] SARS-CoV-2. Performed By: #### C VDTB #### [facility] [address] [place] [address] LSPINE WO CONon [...] by: YANET HUERTA Date: 2022-06-01 18:02 Normal [facility] XR LSPINE MIN 4 [...] YANET HUERTA Date: 2022-05-21 15:25 Normal [facility] PTH INTACTon 05-03-2022 PTH, Intact 60 pg/mL Normal 15-65 [facility] Comment on above: Performed By: #### C VDTB #### [facility] [address] [place] [address] Dr. Ember Teague VIT D 25-OH [facility]on 2021 Vitamin D, 25-Hydroxy 26.1 ng/mL Critically low 30.0-100.0 [facility] Comment on above: Result Comment: Sara min D deficiency has been defined by the [place] of Medicine and an Endocrine Society practice guideline as a level of serum 25-OH vitamin D less than 20 ng/mL (1,2). The Endocrine Society went on to further define vitamin D insufficiency as a level between 21 and 29 ng/mL (2). 1. IOM ([place] of Medicine). 2010. Dietary reference intakes for calcium and D. [place]: The National Academies Press. 2. Sherice MF, Wendy WILSON, Huan ZHONG, et al. Evaluation, treatment, and prevention of vitamin D deficiency: an Endocrine Society clinical practice guideline. JCEM. 2010; 96(7):1911-30. Performed By: #### R ENAL #### [facility] [address] [place] [address] Dr. Ember Teague FERRITINon 05-02-2022 Ferritin [Mass/Vol] 590.0 ng/mL Critically high 8.0-252.0 [facility] Comment on above: Performed By: #### R ENAL #### [facility] [address] [address] [address] Ember Teague HEMOGRAM AND PLATELon 2021 Hematocrit (Bld) [Volume fraction] 28.4 % Critically low 36.0-48.0 [facility] Comment on above: Performed By: #### C VDTBH #### [facility] [address] [address] [address] Ember Teague Hemoglobin (Bld) [Mass/Vol] 9.6 g/dL Critically low 12.0-16.0 [facility] Comment on above: Performed By: #### C VDTBH #### [facility] [address] [address] [address] Ember Teague MCH (RBC) [Entitic mass] 31.0 pg Normal 26.7-34.0 [facility] Comment on above: Performed By: #### C VDTBH #### [facility] [address] [address] [address] Ember Teague MCHC (RBC) [Mass/Vol] 33.8 g/dL Normal 29.9-35.2 [facility] Comment on above: Performed By: #### C VDTBH #### [facility] [address] [place] [address] Dr. Ember eTague MCV (RBC) [Entitic vol] 91.6 fL Normal 81.0-99.0 [facility] Comment on above: Performed By: #### C VDTBH #### [facility] [address] [place] [address] Dr. Ember Teague PLT 189 103/ul Normal 150-450 [facility] Comment on above: Performed By: #### C VDTBH #### [facility] [address] [place] [address] Dr. Ember Teague RBC 3.10 106/ul Critically low 4.20-5.40 [facility] Comment on above: Performed By: #### C VDTBH #### [facility] [address] [place] [address] Dr. Ember Teague WBC 6.2 103/ul Normal 4.0-11.0 [facility] Comment on above: Performed By: #### C VDTBH #### [facility] [address] [place] [address] Dr. Ember Teague IRON AND TIBCon 05-02-2022 % SATURATION 34.3 % Normal [facility] Comment on above: Performed By: #### R ENAL #### [facility] [address] [place] [address] Dr. Ember Teague Iron [Mass/Vol] 69.0 ug/dL Normal 50.0-170.0 [facility] Comment on above: Performed By: #### R ENAL #### [facility] [address] [place] [address] Dr. Ember Teague TIBC DIRECT 201.0 ug/dL Critically low 250.0-450.0 [facility] Comment on above: Performed By: #### R ENAL #### [facility] [address] [place] [address] Dr. Ember Teague MAGNESIUMon 05-02-2022 Magnesium [Mass/Vol] 1.7 mg/dL Critically low 1.8-2.4 [facility] Comment on above: Performed By: #### C VDTBH #### [facility] [address] [place] [address] Dr. Ember Teague RENAL FUNCTION PANELon 05-02 Albumin [Mass/Vol] 3.6 g/dL Normal 3.4-5.0 [facility] Comment on above: Performed By: #### C VDTBH #### [facility] [address] [address] [address] Ember Teague Calcium [Mass/Vol] 9.2 mg/dL Normal 8.5-10.1 [facility] Comment on above: Performed By: #### C VDTBH #### [facility] [address] [place] [address] Dr. Ember Teague Chloride [Moles/Vol] 107 mmol/L Normal 98-107 [facility] Comment on above: Performed By: #### C VDTBH #### [facility] [address] [place] [address] Dr. Ember Teague CO2 [Moles/Vol] 21.2 mmol/L Normal 21.0-32.0 [facility] Comment on above: Performed By: #### C VDTBH #### [facility] [address] [place] [address] Dr. Ember Teague Creatinine [Mass/Vol] 1.75 mg/dL Critically high 0.55-1.02 [facility] Comment on above: Performed By: #### C VDTBH #### [facility] [address] [place] [address] Dr. Ember Teague EGFR-AF FILIPINO 34 mL/min/1.73m2 Critically low >=60 [facility] Comment on above: Performed By: #### C VDTBH #### [facility] [address] [place] [address] Dr. Ember Teague EGFR-NON AF FILIPINO 28 mL/min/1.73m2 Critically low >=60 [facility] Comment on above: Performed By: #### C VDTBH #### [facility] [address] [place] [address] Dr. Ember Teague Glucose [Mass/Vol] 193 mg/dL Critically high 74-106 [facility] Comment on above: Performed By: #### C VDTBH #### [facility] [address] [place] [address] Dr. Ember Teague Phosphate [Mass/Vol] 4.2 mg/dL Normal 2.6-4.7 [facility] Comment on above: Performed By: #### C VDTBH #### [facility] [address] [place] [address] Dr. Ember Teague Potassium [Moles/Vol] 5.1 mmol/L Normal 3.5-5.1 [facility] Comment on above: Performed By: #### C VDTBH #### [facility] [address] [place] [address] Dr. Ember Teague Sodium [Moles/Vol] 139 mmol/L Normal 136-145 [facility] Comment on above: Performed By: #### C VDTBH #### [facility] [address] [place] [address] Dr. Ember Teague Urea nitrogen [Mass/Vol] 34.0 mg/dL Critically high 7.0-18.0 [facility] Comment on above: Performed By: #### C VDTBH #### [facility] [address] [place] [address] Dr. Ember Teague UA RANDOM W/MICROSCOPICon BACTERIA SMALL Abnormal NONE SEEN [facility] Comment on above: Performed By: #### C VDTBH #### [facility] [address] [place] [address] Dr. Ember Teague Bilirubin Ql (U) Negative Normal NEGATIVE [facility] Comment on above: Performed By: #### C VDTBH #### [facility] [address] [place] [address] Dr. Ember Teague CAST NONE SEEN Normal NONE SEEN [facility] Comment on above: Performed By: #### C VDTBH #### [facility] [address] [place] [address] Dr. Ember Teague Clarity (U) CLEAR Normal CLEAR [facility] Comment on above: Performed By: #### C VDTBH #### [facility] [address] [place] [address] Dr. Ember Teague Color (U) LT. YELLOW Normal YELLOW [facility] Comment on above: Performed By: #### C VDTBH #### [facility] [address] [place] [address] Dr. Ember Teague Crystals LM Nom (Urine sed) NONE SEEN Normal NONE SEEN [facility] Comment on above: Performed By: #### C VDTBH #### [facility] [address] [place] [address] Dr. Ember Teague Epithelial cells LM Ql (Urine sed) MODERATE Abnormal NONE SEEN /RARE [facility] Comment on above: Performed By: #### C VDTBH #### [facility] [address] [place] [address] Dr. Ember Teague Glucose Ql (U) Negative Normal NEGATIVE [facility] Comment on above: Performed By: #### C VDTBH #### [facility] [address] [place] [address] Dr. Ember Teague Hemoglobin Ql (U) Negative Normal NEGATIVE [facility] Comment on above: Performed By: #### C VDTBH #### [facility] [address] [place] [address] Dr. Ember Teague Ketones Ql (U) Negative Normal NEGATIVE [facility] Comment on above: Performed By: #### C VDTBH #### [facility] [address] [place] [address] Dr. Ember Teague LEUKOCYTES TRACE Abnormal NEGATIVE [facility] Comment on above: Performed By: #### C VDTBH #### [facility] [address] [place] [address] Dr. Ember Teague MUCOUS NONE SEEN Normal NONE SEEN [facility] Comment on above: Performed By: #### C VDTBH #### [facility] [address] [place] [address] Dr. Ember Teague Nitrite Ql (U) Negative Normal NEGATIVE [facility] Comment on above: Performed By: #### C VDTBH #### [facility] [address] [place] [address] Dr. Ember Teague pH (U) 5.0 [pH] Normal 5-9 [facility] Comment on above: Performed By: #### C VDTBH #### [facility] [address] [place] [address] Dr. Ember Teague RBC NONE SEEN Abnormal 0-2 [facility] Comment on above: Performed By: #### C VDTBH #### [facility] [address] [place] [address] Dr. Ember Teague SPEC GRAVITY 1.015 Normal 1.005-<=1.025 [facility] Comment on above: Performed By: #### C VDTBH #### [facility] [address] [place] [address] Dr. Ember Teague UA PROTEIN TRACE Normal NEGATIVE/ TRACE [facility] Comment on above: Performed By: #### C VDTBH #### [facility] [address] [place] [address] Dr. Ember Teague Urobilinogen Qn (U) 0.2 {Esau'U}/dL Normal 0.2 - 1. 0 [facility] Comment on above: Performed By: #### C VDTBH #### [facility] [address] [place] [address] Dr. Ember Teague WBC 0-2 Abnormal NONE SEEN [facility] Comment on above: Performed By: #### C VDTBH #### [facility] [address] [place] [address] Dr. Ember Teague URIC ACID SERUMon 05-02-2022 Urate [Mass/Vol] 4.4 mg/dL Normal 2.6-6.0 [facility] Comment on above: Performed By: #### C BC #### [facility] [address] [place] [address] Dr. Ember Teague URINE T PROTEIN CREAT RATIOo n 05-02-2022 Protein (U) [Mass/Vol] 33.7 mg/dL Critically high <=12.0 [facility] Comment on above: Performed By: #### C VDTBH #### [facility] [address] [address] [address] Ember Teague UR PROT CREAT RAT 0.69 Normal [facility] Comment on above: Performed By: #### C VDTBH #### [facility] [address] [address] [address] Ember Teague URINE CREAT 48.93 mg/dL Normal 20.00-300.00 [facility] Comment on above: Performed By: #### C VDTBH #### [facility] [address] [address] [address] Ember Teague Vital Signs Date Time Vital Sign Value Performing Clinician Facility 11-18-2023 10:00-0500 Body height 168.91 cm Ron Doreen Other [employer] Other 11-18-2023 10:00-0500 Body mass index (BMI) [Ratio] 29.85 kg/m2 Ron Doreen Other [employer] Other 11-18-2023 10:00-0500 Body temperature 97.3 [degF] Ron Doreen Other [employer] Other 11-18-2023 10:00-0500 Body weight 85.19 kg Ron Doreen Other [employer] Other 11-18-2023 10:00-0500 Diastolic blood pressure 79 mm[Hg] Ron Doreen Other [employer] Other 11-18-2023 10:00-0500 Respiratory rate 18 /min Ron Doreen Other [employer] Other 11-18-2023 10:00-0500 SaO2% (BldA) [Mass fraction] 98 % Ron Doreen Other [employer] Other 11-18-2023 10:00-0500 Systolic blood pressure 149 mm[Hg] Ron Doreen Other [employer] Other 11-04-2023 11:00-0500 Body height 168.91 cm Ron Doreen Other [employer] Other 11-04-2023 11:00-0500 Body mass index (BMI) [Ratio] 30.17 kg/m2 Ron Doreen Other [employer] Other 11-04-2023 11:00-0500 Body temperature 97.6 [degF] Ron Doreen Other [employer] Other 11-04-2023 11:00-0500 Body weight 86.09 kg Ron Doreen Other [employer] Other 11-04-2023 11:00-0500 Diastolic blood pressure 76 mm[Hg] Ron Doreen Other [employer] Other 11-04-2023 11:00-0500 Respiratory rate 18 /min Ron Doreen Other [employer] Other 11-04-2023 11:00-0500 SaO2% (BldA) [Mass fraction] 98 % Ron Doreen Other [employer] Other 11-04-2023 11:00-0500 Systolic blood pressure 153 mm[Hg] Ron Doreen Other [employer] Other 01-09-2024 13:00-0500 Body height 168.91 cm Ron Doreen Other [employer] Other 10-15-2023 13:00-0500 Body mass index (BMI) [Ratio] 29.82 kg/m2 Ron Doreen Other [employer] Other 10-15-2023 13:00-0500 Body temperature 97.5 [degF] Ron Doreen Other [employer] Other 10-15-2023 13:00-0500 Body weight 85.1 kg Ron Doreen Other [employer] Other 10-15-2023 13:00-0500 Diastolic blood pressure 68 mm[Hg] Ron Doreen Other [employer] Other 10-15-2023 13:00-0500 Respiratory rate 18 /min Ron Doreen Other [employer] Other 10-15-2023 13:00-0500 SaO2% (BldA) [Mass fraction] 98 % Ron Doreen Other [employer] Other 10-15-2023 13:00-0500 Systolic blood pressure 113 mm[Hg] Ron Doreen Other [employer] Other 08-27-2023 09:40-0500 Body height 168.91 cm Mary Anne Miyaobabeipj Other [employer] Other 08-27-2023 09:40-0500 Body mass index (BMI) [Ratio] 30.2 kg/m2 Azduc Mensahs Other [employer] Other 08-27-2023 09:40-0500 Body temperature 96.7 [degF] Azduc Mensahs Other [employer] Other 08-27-2023 09:40-0500 Body weight 86.18 kg Mary Anne Mensahs Other [employer] Other 08-27-2023 09:40-0500 Diastolic blood pressure 72 mm[Hg] Mary Anne Mensahs Other [employer] Other 08-27-2023 09:40-0500 Respiratory rate 18 /min Mary Anne Mensahs Other [employer] Other 08-27-2023 09:40-0500 SaO2% (BldA) [Mass fraction] 98 % Mary Anne Mensahs Other [employer] Other 08-27-2023 09:40-0500 Systolic blood pressure 153 mm[Hg] Mary Anne Mensahs Other [employer] Other 08-15-2023 10:20-0500 Body height 168.91 cm Ron Doreen Other [employer] Other 08-15-2023 10:20-0500 Body mass index (BMI) [Ratio] 30.2 kg/m2 Ron Doreen Other [employer] Other 08-15-2023 10:20-0500 Body temperature 97.1 [degF] Ron Doreen Other [employer] Other 08-15-2023 10:20-0500 Body weight 86.18 kg Ron Doreen Other [employer] Other 08-15-2023 10:20-0500 Diastolic blood pressure 79 mm[Hg] Ron Doreen Other [employer] Other 08-15-2023 10:20-0500 Respiratory rate 18 /min Ron Doreen Other [employer] Other 08-15-2023 10:20-0500 SaO2% (BldA) [Mass fraction] 98 % Ron Doreen Other [employer] Other 08-15-2023 10:20-0500 Systolic blood pressure 164 mm[Hg] Ron Doreen Other [employer] Other 08-13-2023 15:40-0500 Body height 168.91 cm Ron Doreen Other [employer] Other 08-13-2023 15:40-0500 Body mass index (BMI) [Ratio] 30.24 kg/m2 Ron Doreen Other [employer] Other 08-13-2023 15:40-0500 Body temperature 97.2 [degF] Ron Doreen Other [employer] Other 08-13-2023 15:40-0500 Body weight 86.27 kg Ron Doreen Other [employer] Other 08-13-2023 15:40-0500 Diastolic blood pressure 79 mm[Hg] Ron Doreen Other [employer] Other 08-13-2023 15:40-0500 Respiratory rate 18 /min Ron Doreen Other [employer] Other 08-13-2023 15:40-0500 SaO2% (BldA) [Mass fraction] 98 % Ron Doreen Other [employer] Other 08-13-2023 15:40-0500 Systolic blood pressure 186 mm[Hg] Ron Doreen Other [employer] Other 08-01-2023 13:00-0400 Body height 168.91 cm Ron Doreen Other [employer] Other 08-01-2023 13:00-0400 Body mass index (BMI) [Ratio] 30.55 kg/m2 Ron Doreen Other [employer] Other 08-01-2023 13:00-0400 Body temperature 97.8 [degF] Ron Doreen Other [employer] Other 08-01-2023 13:00-0400 Body weight 87.18 kg Ron Doreen Other [employer] Other 08-01-2023 13:00-0400 Diastolic blood pressure 72 mm[Hg] Ron Doreen Other [employer] Other 08-01-2023 13:00-0400 Respiratory rate 18 /min Ron Doreen Other [employer] Other 08-01-2023 13:00-0400 SaO2% (BldA) [Mass fraction] 98 % Ron Doreen Other [employer] Other 08-01-2023 13:00-0400 Systolic blood pressure 160 mm[Hg] Ron Doreen Other [employer] Other 06-24-2023 11:40-0400 Body height 168.91 cm Ron Doreen Other [employer] Other 06-24-2023 11:40-0400 Body mass index (BMI) [Ratio] 29.89 kg/m2 Ron Doreen Other [employer] Other 06-24-2023 11:40-0400 Body temperature 97.3 [degF] Ron Doreen Other [employer] Other 06-24-2023 11:40-0400 Body weight 85.28 kg Ron Doreen Other [employer] Other 06-24-2023 11:40-0400 Diastolic blood pressure 75 mm[Hg] Ron Doreen Other [employer] Other 06-24-2023 11:40-0400 Respiratory rate 18 /min Ron Doreen Other [employer] Other 06-24-2023 11:40-0400 SaO2% (BldA) [Mass fraction] 99 % Ron Doreen Other [employer] Other 06-24-2023 11:40-0400 Systolic blood pressure 129 mm[Hg] Ron Doreen Other [employer] Other 06-06-2023 15:20-0400 Body height 168.91 cm Ron Doreen Other [employer] Other 06-06-2023 15:20-0400 Body mass index (BMI) [Ratio] 29.92 kg/m2 Ron Doreen Other [employer] Other 06-06-2023 15:20-0400 Body temperature 96.5 [degF] Ron Doreen Other [employer] Other 06-06-2023 15:20-0400 Body weight 85.37 kg Ron Doreen Other [employer] Other 06-06-2023 15:20-0400 Diastolic blood pressure 49 mm[Hg] Ron Doreen Other [employer] Other 06-06-2023 15:20-0400 Respiratory rate 18 /min Ron Doreen Other [employer] Other 06-06-2023 15:20-0400 SaO2% (BldA) [Mass fraction] 99 % Ron Doreen Other [employer] Other 06-06-2023 15:20-0400 Systolic blood pressure 128 mm[Hg] Ron Doreen Other [employer] Other 04-30-2023 11:40-0400 Body height 168.91 cm Ron Doreen Other [employer] Other 04-30-2023 11:40-0400 Body mass index (BMI) [Ratio] 30.52 kg/m2 Ron Doreen Other [employer] Other 04-30-2023 11:40-0400 Body temperature 96.9 [degF] Ron Doreen Other [employer] Other 04-30-2023 11:40-0400 Body weight 87.09 kg Ron Doreen Other [employer] Other 04-30-2023 11:40-0400 Diastolic blood pressure 80 mm[Hg] Ron Doreen Other [employer] Other 04-30-2023 11:40-0400 Respiratory rate 18 /min Ron Doreen Other [employer] Other 04-30-2023 11:40-0400 SaO2% (BldA) [Mass fraction] 98 % Ron Doreen Other [employer] Other 04-30-2023 11:40-0400 Systolic blood pressure 150 mm[Hg] Ron Doreen Other [employer] Other 04-06-2023 09:00-0400 Body height 168.91 cm Ron Doreen Other [employer] Other 04-06-2023 09:00-0400 Body mass index (BMI) [Ratio] 30.36 kg/m2 Ron Doreen Other [employer] Other 04-06-2023 09:00-0400 Body weight 86.64 kg Ron Doreen Other [employer] Other 04-06-2023 09:00-0400 Diastolic blood pressure 54 mm[Hg] Ron Doreen Other [employer] Other 04-06-2023 09:00-0400 Respiratory rate 18 /min Ron Doreen Other [employer] Other 04-06-2023 09:00-0400 SaO2% (BldA) [Mass fraction] 98 % Ron Doreen Other [employer] Other 04-06-2023 09:00-0400 Systolic blood pressure 144 mm[Hg] Ron Doreen Other [employer] Other 04-02-2023 14:40-0400 Body height 168.91 cm Ron Doreen Other [employer] Other 04-02-2023 14:40-0400 Body mass index (BMI) [Ratio] 30.55 kg/m2 Ron Doeren Other [employer] Other 04-02-2023 14:40-0400 Body temperature 97 [degF] Ron Doreen Other [employer] Other 04-02-2023 14:40-0400 Body weight 87.18 kg Ron Doreen Other [employer] Other 04-02-2023 14:40-0400 Diastolic blood pressure 76 mm[Hg] Ron Doreen Other [employer] Other 04-02-2023 14:40-0400 Respiratory rate 18 /min Ron Doreen Other [employer] Other 04-02-2023 14:40-0400 SaO2% (BldA) [Mass fraction] 98 % Ron Doreen Other [employer] Other 04-02-2023 14:40-0400 Systolic blood pressure 183 mm[Hg] Ron Doreen Other [employer] Other 03-07-2023 09:20-0400 Body height 168.91 cm Ron Doreen Other [employer] Other 03-07-2023 09:20-0400 Body mass index (BMI) [Ratio] 30.52 kg/m2 Ron Doreen Other [employer] Other 03-07-2023 09:20-0400 Body temperature 97.1 [degF] Ron Doreen Other [employer] Other 03-07-2023 09:20-0400 Body weight 87.09 kg Ron Doreen Other [employer] Other 03-07-2023 09:20-0400 Diastolic blood pressure 72 mm[Hg] Ron Doreen Other [employer] Other 03-07-2023 09:20-0400 Respiratory rate 18 /min Ron Doreen Other [employer] Other 03-07-2023 09:20-0400 SaO2% (BldA) [Mass fraction] 97 % Ron Doreen Other [employer] Other 03-07-2023 09:20-0400 Systolic blood pressure 130 mm[Hg] Ron Doreen Other [employer] Other 12-20-2022 13:20-0400 Body height 168.91 cm Ron Doreen Other [employer] Other 12-20-2022 13:20-0400 Body mass index (BMI) [Ratio] 30.68 kg/m2 Ron Doreen Other [employer] Other 12-20-2022 13:20-0400 Body temperature 97.1 [degF] Ron Doreen Other [employer] Other 12-20-2022 13:20-0400 Body weight 87.54 kg Ron Doreen Other [employer] Other 12-20-2022 13:20-0400 Diastolic blood pressure 72 mm[Hg] Ron Doreen Other [employer] Other 12-20-2022 13:20-0400 Respiratory rate 18 /min Ron Doreen Other [employer] Other 12-20-2022 13:20-0400 SaO2% (BldA) [Mass fraction] 99 % Ron Doeren Other [employer] Other 12-20-2022 13:20-0400 Systolic blood pressure 139 mm[Hg] Ron Doreen Other [employer] Other 11-05-2022 14:00-0500 Body height 168.91 cm Ron Doreen Other [employer] Other 11-05-2022 14:00-0500 Body mass index (BMI) [Ratio] 30.59 kg/m2 Ron Doreen Other [employer] Other 11-05-2022 14:00-0500 Body temperature 96.8 [degF] Ron Doreen Other [employer] Other 11-05-2022 14:00-0500 Body weight 87.27 kg Ron Doreen Other [employer] Other 11-05-2022 14:00-0500 Diastolic blood pressure 72 mm[Hg] Ron Doreen Other [employer] Other 11-05-2022 14:00-0500 Respiratory rate 18 /min Ron Doreen Other [employer] Other 11-05-2022 14:00-0500 SaO2% (BldA) [Mass fraction] 98 % Ron Doreen Other [employer] Other 11-05-2022 14:00-0500 Systolic blood pressure 157 mm[Hg] Ron Doreen Other [employer] Other 09-27-2022 16:00-0500 Body height 168.91 cm Jana Monson Other [employer] Other 09-27-2022 16:00-0500 Body mass index (BMI) [Ratio] 30.55 kg/m2 Jana Monson Other [employer] Other 09-27-2022 16:00-0500 Body temperature 96.8 [degF] Jana Monson Other [employer] Other 09-27-2022 16:00-0500 Body weight 87.18 kg Jana Monson Other [employer] Other 09-27-2022 16:00-0500 Diastolic blood pressure 73 mm[Hg] Jana Monson Other [employer] Other 09-27-2022 16:00-0500 Respiratory rate 18 /min Jana Monson Other [employer] Other 09-27-2022 16:00-0500 SaO2% (BldA) [Mass fraction] 98 % Jana Monson Other [employer] Other 09-27-2022 16:00-0500 Systolic blood pressure 159 mm[Hg] Jana Monson Other [employer] Other 08-22-2022 12:00-0500 Body height 168.91 cm Ron Doreen Other [employer] Other 08-22-2022 12:00-0500 Body mass index (BMI) [Ratio] 30.65 kg/m2 Ron Doreen Other [employer] Other 08-22-2022 12:00-0500 Body temperature 96.9 [degF] Ron Doreen Other [employer] Other 08-22-2022 12:00-0500 Body weight 87.45 kg Ron Doreen Other [employer] Other 08-22-2022 12:00-0500 Diastolic blood pressure 75 mm[Hg] Ron Doreen Other [employer] Other 08-22-2022 12:00-0500 Respiratory rate 18 /min Ron Doreen Other [employer] Other 08-22-2022 12:00-0500 SaO2% (BldA) [Mass fraction] 96 % Ron Doreen Other [employer] Other 08-22-2022 12:00-0500 Systolic blood pressure 121 mm[Hg] Ron Doreen Other [employer] Other 05-08-2022 10:20-0400 Body height 168.91 cm Ron Doreen Other [employer] Other 05-08-2022 10:20-0400 Body mass index (BMI) [Ratio] 31.54 kg/m2 Ron Doreen Other [employer] Other 05-08-2022 10:20-0400 Body temperature 97.6 [degF] Ron Doreen Other [employer] Other 05-08-2022 10:20-0400 Body weight 89.99 kg Ron Doreen Other [employer] Other 05-08-2022 10:20-0400 Diastolic blood pressure 68 mm[Hg] Ron Doreen Other [employer] Other 05-08-2022 10:20-0400 Respiratory rate 18 /min Ron Doreen Other [employer] Other 05-08-2022 10:20-0400 SaO2% (BldA) [Mass fraction] 98 % Ron Doreen Other [employer] Other 05-08-2022 10:20-0400 Systolic blood pressure 131 mm[Hg] Ron Doreen Other [employer] Other 01-18-2022 10:20-0400 Body height 168.91 cm Ron Doreen Other [employer] Other 01-18-2022 10:20-0400 Body mass index (BMI) [Ratio] 31 kg/m2 Ron Doreen Other [employer] Other 01-18-2022 10:20-0400 Body temperature 96.4 [degF] Ron Doreen Other [employer] Other 01-18-2022 10:20-0400 Body weight 88.45 kg Ron Doreen Other [employer] Other 01-18-2022 10:20-0400 Diastolic blood pressure 74 mm[Hg] Ron Doreen Other [employer] Other 01-18-2022 10:20-0400 Respiratory rate 18 /min Ron Doreen Other [employer] Other 01-18-2022 10:20-0400 SaO2% (BldA) [Mass fraction] 97 % Ron Doreen Other [employer] Other 01-18-2022 10:20-0400 Systolic blood pressure 170 mm[Hg] Ron Doreen Other [employer] Other Encounters Encounter Date Encounter Type Care Provider Facility Start: 02-10-2024 End: 02-10-2024 ambulatory [facility] Start: 01-17-2024 End: 01-17-2024 ambulatory THUAN George DELVALLE [facility] Start: 01-16-2024 End: 01-16-2024 ambulatory GA H CHERIE Not Available Start: 12-21-2023 Refill Luis dominique PA-C Work Phone: [facility] Comment on above: Med Refill Start: 11-28-2023 End: 11-28-2023 ambulatory GREG TINEO Not Available Start: 11-18-2023 End: 11-18-2023 ambulatory Ron Doreen Other [employer] Other Start: 11-18-2023 Office outpatient visit 15 minutes Ron Doreen [facility] Start: 11-05-2023 End: 11-05-2023 ambulatory GA CRESPO Not Available Start: 11-04-2023 (INJECTION) INJECTION Ron Doreen [facility] Start: 11-04-2023 End: 11-04-2023 ambulatory Ron Doreen Other [employer] Other Start: 10-22-2023 End: 10-22-2023 ambulatory GA Moreno CHERIE Not Available Start: 10-15-2023 End: 10-15-2023 ambulatory Ron Doreen Other [employer] Other Start: 10-15-2023 Office outpatient visit 15 minutes Ron Doreen [facility] Start: 10-08-2023 End: 10-08-2023 ambulatory Azduc Mensahs Other [employer] Other Start: 10-08-2023 Telephone encounter Azduc Mensahs [facility] Start: 09-15-2023 End: 09-15-2023 ambulatory Ron Doreen Other [employer] Other Start: 09-15-2023 Telephone encounter Ron Doreen [facility] Start: 09-09-2023 End: 09-09-2023 ambulatory Ron Doreen Other [employer] Other Start: 09-09-2023 Telephone encounter Ron Doreen [facility] Start: 08-27-2023 (INJECTION) INJECTION Aziz Bakhous [facility] Start: 08-27-2023 End: 08-27-2023 ambulatory Aziz Bakhous Other [employer] Other Start: 08-15-2023 (INJECTION) INJECTION Ron Doreen [facility] Start: 08-15-2023 End: 08-15-2023 ambulatory Ron Doreen Other [employer] Other Start: 08-13-2023 (INJECTION) INJECTION Ron Doreen [facility] Start: 08-13-2023 End: 08-13-2023 ambulatory Ron Doreen Other [employer] Other Start: 08-01-2023 End: 08-01-2023 ambulatory Ron Doreen Other [employer] Other Start: 08-01-2023 Office outpatient visit 15 minutes Ron Doreen [facility] Start: 06-24-2023 End: 06-24-2023 ambulatory Ron Doreen Other [employer] Other Start: 06-24-2023 Office outpatient visit 10 minutes Ron Doreen [facility] Start: 06-06-2023 End: 06-06-2023 ambulatory Ron Doreen Other [employer] Other Start: 06-06-2023 Office outpatient visit 15 minutes Ron Doreen [facility] Start: 04-30-2023 End: 04-30-2023 ambulatory Ron Doreen Other [employer] Other Start: 04-30-2023 Office outpatient visit 15 minutes Ron Doreen [facility] Start: 04-06-2023 (INJECTION) INJECTION Ron Doreen [facility] Start: 04-06-2023 End: 04-06-2023 ambulatory Ron Doreen Other [employer] Other Start: 04-06-2023 Telephone encounter Ron Doreen [facility] Start: 04-02-2023 End: 04-02-2023 ambulatory Ron Doreen Other [employer] Other Start: 04-02-2023 Office outpatient visit 15 minutes Ron Doreen [facility] Start: 04-02-2023 Telephone encounter Ron Doreen [facility] Start: 03-07-2023 End: 03-07-2023 ambulatory Ron Doreen Other [employer] Other Start: 03-07-2023 Office outpatient visit 15 minutes Ron Doreen [facility] Start: 01-22-2023 End: 01-23-2023 ambulatory RON DOREEN Facility:[facility] Start: 12-20-2022 End: 12-20-2022 ambulatory Ron Doreen Other [employer] Other Start: 12-20-2022 Office outpatient visit 15 minutes Ron Doreen [facility] Start: 12-17-2022 End: 12-18-[address] DHRUV RUBI . Facility:[facility] Start: 12-10-2022 End: 12-11-2022 ambulatory RON DOREEN Facility:[facility] Start: 11-20-2022 End: 11-21-[address] BENI APARICIO Facility:[facility] Start: 11-05-2022 End: 11-05-2022 ambulatory Ron Doreen Other [employer] Other Start: 11-05-2022 Office outpatient visit 15 minutes Ron Doreen [facility] Start: 10-29-2022 End: 10-30-[address] JANA MONSON Facility:[facility] Start: 10-24-2022 End: 10-24-[address] LILLIAN ACOSTA . Facility:[facility] Start: 10-24-2022 End: 10-25-[address] DHRUV RUBI . Facility:[facility] Start: 09-27-2022 End: 09-27-2022 ambulatory Jana Monson Other [employer] Other Start: 09-27-2022 Office outpatient visit 15 minutes Jana Monson [facility] Start: 09-18-2022 End: 09-19-2022 ambulatory RON DOREEN Facility:[facility] Start: 09-11-2022 End: 09-11-[address] DHRUV RUBI . Facility:[facility] Start: 08-22-2022 End: 08-22-2022 ambulatory Ron Doreen Other [employer] Other Start: 08-22-2022 Office outpatient visit 15 minutes Ron Doreen [facility] Start: 08-13-2022 End: 08-14-2022 ambulatory RON DOREEN Facility:[facility] Start: 06-25-2022 End: 06-26-[address] DHRUV RUBI . Facility:[facility] Start: 06-18-2022 End: 06-18-[address] DHRUV RUBI . Facility:[facility] Start: 06-01-2022 End: 06-02-[address] YANET HUERTA Facility:[facility] Start: 05-28-2022 End: 05-28-2022 ambulatory Ron Doreen Other [employer] Other Start: 05-28-2022 Telephone encounter Ron Doreen [facility] Start: 05-21-2022 End: 05-22-[address] DHRUV RUBI . Facility:[facility] Start: 05-16-2022 End: 05-16-2022 ambulatory Ron Doreen Other [employer] Other Start: 05-16-2022 Telephone encounter Ron Doreen [facility] Start: 05-10-2022 End: 05-10-2022 ambulatory Ron Doreen Other [employer] Other Start: 05-10-2022 Telephone encounter Ron Doreen [facility] Start: 05-08-2022 End: 05-08-2022 ambulatory Ron Doreen Other [employer] Other Start: 05-08-2022 Office outpatient visit 25 minutes Ron Doreen [facility] Start: 05-02-2022 End: 05-03-2022 ambulatory RON DOREEN Facility:[facility] Start: 04-24-2022 End: 04-24-2022 ambulatory Aziz Bakhous Other [employer] Other Start: 04-24-2022 Telephone encounter Aziz Bakhous [facility] Start: 01-18-2022 End: 01-18-2022 ambulatory Ron Doreen Other [employer] Other Start: 01-18-2022 Office outpatient visit 25 minutes Ron Doreen [facility] Start: 05-21-2017 End: 05-22-2017 Ambulatory DEFAULT PHYSICIAN Facility:[facility] Procedures Date Procedure Procedure Detail Performing [...] 03-19-2024 Adult BMI Screening Adult BMI Screening [facility] Start: 03-19-2024 Tobacco Screening Tobacco Screening [facility] Start: 06-07-2023 COVID-19 Vaccine ( season) COVID-19 Vaccine () [facility] Start: 06-07-2023 Influenza vaccination Influenza Vaccine [facility] Start: 12-28-2021 Depression Screening Depression Screening [facility] Start: 2009 Fall Risk Screening Fall Risk Screening [facility] Start: 1994 Administration of varicella zoster vaccine Zoster (Shingles) Vaccine (1 of 2) [facility] Start: 12-15-1963 DTaP,Tdap and Td Vaccines (1 - Tdap) DTaP,Tdap and Td Vaccines (1 - Tdap) [facility] Start: 1962 Adult BMI Follow Up Plan Adult BMI Follow Up Plan [facility] Start: 1944 Medicare Annual Wellness Visit Medicare Annual Wellness Visit [facility] Immunizations Immunization Date Immunization Notes Care Provider Fa cili 07-18-2020 Seasonal trivalent influenza vaccine, adjuvanted, preservative free Luis VALDEZ-C Work Phone: [facility] 07-18-2020 influenza virus vacc ine, unspecified formulation Luis VALDEZ-C Work Phone: [facility] 07-22-2019 Seasonal trivalent influenza vaccine, adjuvanted, preservative free Luis Quiles PA-C Work Phone: [facility] 07-14-2018 Seasonal trivalent influenza vaccine, adjuvanted, preservative free Luis Marinser PA-C Work Phone: [facility] 07-15-2017 pneumococcal conjuga te vaccine, 13 valent Luis Quiles PA-C Work Phone: [facility] 07-08-2017 influenza, high dose seasonal, preservative-free Luis Kb PA-C Work Phone: [facility] 07-25-2016 influenza, high dose seasonal, preservative-free Luis Kb PA-C Work Phone: [facility] 07-11-2015 influenza, high dose seasonal, preservative-free Luis Kb PA-C Work Phone: [facility] 07-16-2014 influenza, seasonal, injectable Luis Kb PA-C Work Phone: [facility] 07-10-2013 influenza, seasonal, injectable Luis Kb PA-C Work Phone: [facility] 08-08-2012 influenza virus vacc ine, unspecified formulation Luis Kb PA-C Work Phone: [facility] 08-08-2012 pneumococcal polysaccharide vaccine, 23 valent Luis Kb PA-C Work Phone: [facility] 07-11-2011 influenza virus vacc ine, unspecified formulation Luis Kb PA-C Work Phone: [facility] 08-15-2010 influenza virus vacc ine, unspecified formulation Luis Kb PA-C Work Phone: [facility] 07-26-2009 influenza virus vacc ine, unspecified formulation Luis Kb PA-C Work Phone: [facility] 08-04-2008 influenza virus vacc ine, unspecified formulation Luis Kb PA-C Work Phone: [facility] 08-13-2007 influenza virus vacc ine, unspecified formulation Luis Kb PA-C Work Phone: [facility] 08-11-2004 influenza virus vacc ine, unspecified formulation Luis Kb PA-C Work Phone: [facility] 08-09-2003 influenza virus vacc ine, unspecified formulation Luis Kb PA-C Work Phone: [facility] 08-09-2003 pneumococcal polysaccharide vaccine, 23 valent Luis Kb PA-C Work Phone: [employer] Payers Date Payer Category Payer Medicare [employer] MEDICARE A ETNA MEDICARE PLAN (HMO) [id number] 2021-Present [phone] [address] [place] [address] [id number] 1960 Medicare [id number] 1944 Unknown [id number] [id number]3 1944 Unknown [id number] 2.16.840.1.040640.3.579.2.593 1944 Unknown [id number] 2.16.840.1.523524.3.579.2.593 1944 Unknown [id number] 2.16.840.1.597103.3.579.2.593 1944 Unknown [id number] 2.16.840.1.630902.3.579.2.593 1944 Unknown [id number] 2.16.840.1.806515.3.579.2.593 1944 Unknown [id number] 2.16.840.1.054784.3.579.2.593 1944 Unknown [id number] 2.16.840.1.067434.3.579.2.593 1944 Unknown [id number] 2.16.840.1.365816.3.579.2.593 1944 Unknown [id number] 2.16.840.1.245879.3.579.2.593 1944 Unknown [id number] 2.16.840.1.255934.3.579.2.593 1944 Unknown [id number] 2.16.840.1.583920.3.579.2.593 1944 Unknown [id number] 2.16.840.1.209580.3.579.2.593 1944 Unknown [id number] 2.16.840.1.216542.3.579.2.593 1944 Unknown [id number] 2.16.840.1.163955.3.579.2.593 1944 Unknown [id number] 2.16.840.1.506756.3.579.2.593 1944 Unknown [id number] 2.16.840.1.270098.3.579.2.1259 1944 Unknown [id number] 2.16.840.1.889765.3.579.2.1259 1944 Unknown [id number] 2.16.840.1.879237.3.579.2.1259 1944 Unknown [id number] 2.16.840.1.876048.3.579.2.1259 1944 Unknown [id number] 2.16.840.1.964770.3.579.2.1286 Unknown Social History Date Type Detail Facility Unknown if ever smoked [employer] Other Start: 12-28-2020 End: 03-19-2023 Sex Assigned At [employer] Other Start: 09-20-2022 Tobacco smoking status NHIS Ex-smoker [facility] End: 10-07-1969 History of tobacco use Current smoker [facility] End: 10-07-1969 History of tobacco use Cigarette Smoker [facility] Start: 09-20-2022 Tobacco use and exposure Smokeless tobacco non-user [facility] Start: 03-19-2023 Alcohol intake Ex-drinker (finding) [facility] Start: 12-28-2020 End: 03-19-2023 History of Social function [facility] Do you belong to any clubs or organizations such as denominational groups, unions, fraternal or athletic groups, or school groups? No [facility] Are you now , , , , never or living with a partner? [facility] How hard is it for y ou to pay for the very basics like food, housing, medical care, and heating Not hard at all [facility] [employer] [facility] Do you feel stress - tense, restless, nervous, or anxious, or unable to sleep at night because your mind is troubled all the time - these days [OSQ] Not at all [employer] [facility] Start: 1945 Sex Assigned At Not on file [employer] [facility] Goals Date Patient Goal Desired Activity /State Personal health goal Comment on above: Formatting of this n ote might be different from the original. Evaluation of progress towards goal: return home with homecare and support from [facility], children and grandchildren Clinical Notes 01-18-2022 to 02-10-2024 Note Date & Type Note Facility 02-10-2024 Note [facility] Cardiology Clinic Note Chief Complaint: Patient here to re-establish care. She was recently admitted to [facility] for hypertension. Had CABG since her last office visit in 2020. C/o intermittent chest pressure and palpitations. Denies SOB and lightheadedness. HPI: Kylah Robin is a 78 y.o. female With a history of coronary artery disease, coronary artery bypass graft surgery in 2020, longstanding diabetes, and difficult to control hypertension who is here to establish care I recently seen her in in the Hospital as a consult for hypertensive urgency with a minimal Troponin elevation likely myocardial injury related to elevated Bps She has been feeling well since discharge and has no new cardiovascular complaints She has longstanding postural dizziness. She has been a longstanding diabetic. PAST MEDICAL HISTORY: Diabetes mellitus ([facility]) Hypertensive urgency Arthritis Dyspnea Chest pain Unstable angina ([facility]) Obesity (BMI 30-39.9) H/O four vessel coronary artery bypass graft Paroxysmal atrial fibrillation ([facility]) Atherosclerosis of [place] coronary artery of [place] heart without angina pectoris Obesity (BMI 30-39.9) Essential hypertension Other hyperlipidemia Class 1 obesity in adult Cardiology ROS: Review of Systems Cardiovascular: Positive for chest pain ( pressure ), irregular heartbeat and palpitations. Musculoskeletal: Positive for myalgias. All other systems reviewed and are negative. Past Medical History She has no past medical history on file. Surgical History She has no past surgical history on file. Social History She has no history on file for tobacco use, alcohol use, and drug use. Family History No family history on file. Allergies Patient has no allergy information on record. Medications No current outpatient medications on file. Last Recorded Vitals BP 130/70 (BP Location: Left arm, Patient Position: Sitting) Pulse 66 Ht 1.689 m (5' 6.5 ) Wt 83.5 kg (184 lb) SpO2 98% BMI 29.25 kg/m??? Physical Examination: GENERAL: alert and oriented x3, well developed, in no acute distress. HEAD: atraumatic, normocephalic. EYES: LEIGHANN, EOMI. NECK: trachea midline, no JVD present, no carotid bruits present. CARDIAC: S1, S2 present. RRR. No murmur, rubs, or gallops. RESPIRATORY: CTAB, no increased effort of breathing, no rales, rhonchi, or wheezing. ABDOMEN: soft, nontender, nondistended. EXTREMITIES: no lower extremity edema, peripheral pulses are 2+ bilaterally. No rash/skin discoloration present. NEURO: strength/sensation equal and symmetric in bilateral upper and lower extremities. PSYCH: appropriate mood, affect, and judgement. Investigations: Cardiac Cath 2020 Patient Information Patient Name Kylah Robin Sex Female Physicians Panel Physicians Referring Physician Kassie Nicole MD (Primary) Anastasia Burch, DO Procedures Coronary angiogram and left ventricular gram/pressure Indications Unstable angina (CMS-HCC) [I20.0 (ICD-10-CM)] Conclusion Findings: 1. Severe ostial left main disease 2. Sequential moderate RCA lesions 3. Ostial PDA severe lesion 4. LVEDP 10 mmHg CONCLUSION: 1. Global left ventricular systolic function is hyperdynamic; visually estimated ejection fraction 65 to 70% 2. Normal right ventricular size and systolic function 3. Moderate to severely increased left ventricular wall thickness 4. Grade 2 diastolic dysfunction 5. The left atrium is severely dilated 6. No significant valvular abnormalities 7. Anterior free space; trivial effusion versus fat pad Assessment: Coronary artery disease, history of coronary artery bypass graft surgery Postoperative atrial fibrillation without recurrence Refractory hypertension Chest pain Chronic kidney disease History of COVID-19 Diabetes mellitus Dyslipidemia Hypothyroidism Mitral regurgitation Left ventricular hypertrophy, diastolic dysfunction Anemia Gastroesophageal reflux disease Gout Orthostatic hypotension Plan: Optimal medical therapy for coronary artery disease in a diabetic should include continued aspirin, high intensity statin therapy, a beta-gato, a RAAS inhibitor; her chronic kidney disease is prohibitive. She is currently on Imdur we will add hydralazine 10 mg p.o. 3 times daily and decrease her Coreg to 25 mg twice daily A diabetic patient with coronary artery disease should be on an SGLT2 inhibitor however given her chronic kidney disease will defer for now I have asked her to check her blood pressure at home a.m. and p.m. 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 [facility] 11-18-2023 Evaluation note Encounter Date Diagnosis Assessment [...] potassium improved with dietary restriction and Lasix. [employer] Other 01-29-2024 Evaluation note* Encounter Date Diagnosis Assessment Notes Treatment Notes Treatment Clinical Notes Oct, Anemia of renal disease (ICD-10 - D63.1) Oct, CKD (chronic kidney disease) stage 4, GFR 15-29 ml/min (ICD-10 - N18.4) [employer] Other 01-09-2024 Evaluation note* Encounter Date Diagnosis [...] potassium improved with dietary restriction and Lasix. [employer] Other 12-04-2023 Evaluation note* Encounter Date Diagnosis [...] 4, GFR 15-29 ml/min (ICD-10 - N18.4) [employer] Other 11-21-2023 Evaluation note* Encounter Date Diagnosis Assessment Notes Treatment Notes Treatment Clinical Notes Aug, Anemia of renal disease (ICD-10 - D63.1) Aug, CKD (chronic kidney disease) stage 4, GFR 15-29 ml/min (ICD-10 - N18.4) [employer] Other 11-09-2023 Evaluation note* Encounter Date Diagnosis [...] of kidney mass hydronephrosis or kidney stones. [employer] Other 10-26-2023 Evaluation note* Encounter Date Diagnosis [...] potassium improved with dietary restriction and Lasix. [employer] Other 09-18-2023 Evaluation note* Encounter Date Diagnosis [...] potassium improved with dietary restriction and Lasix. [employer] Other 08-31-2023 Evaluation note* Encounter Date Diagnosis [...] potassium improved with dietary restriction and Lasix. [employer] Other 07-25-2023 Evaluation note* Encounter Date Diagnosis [...] to normal with dietary restriction and Lasix. [employer] Other 07-01-2023 Evaluation note* Encounter Date Diagnosis Assessment Notes Treatment Notes Treatment Clinical Notes Apr, CKD (chronic kidney disease) stage 4, GFR 15-29 ml/min (ICD-10 - N18.4) Apr, Anemia of renal disease (ICD-10 - D63.1) [employer] Other 06-27-2023 Evaluation note* Encounter Date Diagnosis [...] to normal with dietary restriction and Lasix. [employer] Other 06-01-2023 Evaluation note* Encounter Date Diagnosis [...] potassium diet and provide information about it. [employer] Other 03-16-2023 Evaluation note* Encounter Date Diagnosis [...] suitable candidate for Farxiga, Jardiance or finerenone. 16 Mar, 2023 Secondary hyperparathyroidism (ICD-10 - N25.81) MBD parameters including PTH, calcium are phosphorus are within the goal but Vit D is low. I have advised her to Continue Vit D 5000 units daily [employer] Other 01-30-2023 Evaluation note* Encounter Date Diagnosis [...] to Continue Vit D 5000 units daily [employer] Other 12-22-2022 Evaluation note* Encounter Date Diagnosis [...] to Continue Vit D 5000 units daily [employer] Other 11-16-2022 Evaluation note* Encounter Date Diagnosis [...] to Continue Vit D 5000 units daily [employer] Other 08-04-2022 Evaluation note* Encounter Date Diagnosis Assessment Notes Treatment Notes Treatment Clinical Notes May, Hypertensive chronic kidney disease with stage 1 through stage 4 chronic kidney disease, or unspecified chronic kidney disease (ICD-10 - I12.9) [employer] Other 08-02-2022 Evaluation note* Encounter Date Diagnosis [...] to Continue Vit D 5000 units daily [employer] Other 07-19-2022 Evaluation note* Encounter Date Diagnosis Assessment Notes Treatment Notes Treatment Clinical Notes Apr, Hypertensive chronic kidney disease with stage 1 through stage 4 chronic kidney disease, or unspecified chronic kidney disease (ICD-10 - I12.9) [employer] Other 04-14-2022 Evaluation note* Encounter Date Diagnosis [...] to take Vit D 1000 units daily [employer] Other Evaluation noteNo InformationNort [employer] Other Evaluation note* Diagnosis Atherosclerosis of [place] coronary artery of [place] heart without angina 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 Hypertensive urgency Shortness of breath Paroxysmal atrial fibrillation ([facility]) Atrial fibrillation Localized edema Edema documented in this encounter [facility] - [facility]* Type [...] History SEE ABOVE Hospitalization History COVID 09/2020 [employer] Other history general Narrative - Reported* Type [...] History SEE ABOVE Hospitalization History COVID 09/2020 [employer] Other history general Narrative - Reported* Type [...] History SEE ABOVE Hospitalization History COVID 09/2020 [employer] Other History general Narrative - ReportedNortiROKO Partners Other History general Narrative - Reported* Type [...] NOSE 10/2019 Surgical History [facility] 01/01/2021 Hospitalization History ELEVATED BLOOD PRESSURE Hospitalization History SEE ABOVE Hospitalization History COVID 09/2020 [employer] Other InstructionsNot on filedocumented in this encounter [facility] Summary Purpose Family History No Family [...] and content) DATE CREATED AUTHOR 04/02/2018 [facility] DATE CREATED AUTHOR AUTHOR'S ORGANIZ ATION 01/27/2023 [facility] DATE CREATED AUTHOR AUTHOR'S ORGANIZ ATION 01/17/2024 [facility] EP[facility] DATE CREATED AUTHOR AUTHOR'S ORGANIZ ATION 01/18/2024 [facility] DATE CREATED AUTHOR AUTHOR'S ORGANIZ ATION 02/11/2024 [facility] REASON FOR VISIT (unrecogniz ed section and content) Reason Comments Med Refill Care Teams (unrecognized sec tion and content) 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 [employer] provides no warranty or guarantee of the accuracy or completeness of information in this document.
--- NOTE | 2024-03-01 20:08 | ED_ITS ---
HPI HPI - General Adult General Chief complaint: Chest Pain Stated complaint: CHEST PAIN Time Seen by Provider: 03/01/24 19:35 Source: patient Mode of arrival: walk-in Limitations: no limitations History of Present Illness HPI narrative: Patient is a 78-year-old female who returns to the emergency department for chest pain and high blood pressure. Patient has been seen in this emergency department several times in the past for the same symptoms, Although she typically does not have chest pain. She has had uncontrolled hypertension and admissions for hypertensive urgency over the last several months at this facility. 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 She states she has developed left anterior chest pain and right shoulder pain. She states when the pain radiated into the left arm she came to the emergency department. She took 2 sublingual nitroglycerin without improvement. She took a baby aspirin this morning. She denies fevers, chills, shortness of breath. She has no leg swelling. She has had a mild cough. Related Data Home Medications ?Medication ?Instructions ?Recorded ?Confirmed atorvastatin 80 mg tablet 80 mg PO .QHS 03/17/23 01/21/24 insulin aspart U-100 100 unit/mL 12 unit subcut DAILY 03/17/23 01/21/24 (3 mL) subcutaneous pen (Novolog FlexPen U-100 Insulin aspart) liothyronine 5 mcg tablet 10 mcg PO .QD 03/17/23 01/21/24 magnesium oxide 400 mg (241.3 mg 400 mg PO TID 03/17/23 01/21/24 magnesium) tablet pantoprazole 40 mg tablet,delayed 40 mg PO .QD 03/17/23 01/21/24 release ferrous sulfate 325 mg (65 mg 325 mg PO BID 12/31/23 01/21/24 iron) tablet carvedilol 25 mg tablet 50 mg PO BID 01/22/24 01/22/24 fluconazole 100 mg tablet 100 mg PO DAILY 01/22/24 01/22/24 furosemide 20 mg tablet 20 mg PO DAILY 01/22/24 01/22/24 levofloxacin 750 mg tablet 750 mg PO DAILY 01/22/24 01/22/24 levothyroxine 125 mcg tablet 125 mcg PO DAILY 01/22/24 01/22/24 Previous Rx's ?Medication ?Instructions ?Recorded clonidine HCl 0.1 mg tablet 0.2 mg (2 x 0.1 mg) PO BID #120 01/01/24 tabs allopurinol 100 mg tablet 50 mg (1/2 x 100 mg) PO Q48H #30 01/24/24 tabs insulin detemir U-100 100 unit/mL 26 unit (0.26 mL) subcut BID #15 mL 01/24/24 (3 mL) subcutaneous pen (Levemir FlexPen) isosorbide mononitrate 60 mg 60 mg PO QD #30 tabs 01/24/24 tablet,extended release 24 hr tramadol 50 mg tablet 25 mg (1/2 x 50 mg) PO Q6H PRN 01/24/24 Pain #14 tabs Allergies Allergy/AdvReac Type Severity Reaction Status Date / Time amlodipine [From Norvasc] Allergy Mild itchy Verified 03/01/24 19:50 Iodinated Contrast Media Allergy Unknown Verified 03/01/24 19:50 amoxicillin [From Augmentin] Allergy Rash Verified 03/01/24 19:50 clavulanic acid Allergy Rash Verified 03/01/24 19:50 [From Augmentin] sulfamethoxazole Allergy Rash Verified 03/01/24 19:50 [From Bactrim] trimethoprim [From Bactrim] Allergy Rash Verified 03/01/24 19:50 Opioid HPI Opioid Management Most Recent Opioid Data: Last Pain Scale 5 03/01/24 20:52 Last ORT Total Score 0 01/21/24 17:56 Last ORT Risk Category Low Risk 01/21/24 17:56 Review of Systems ROS Constitutional Denies: fever or chills Ears, nose, mouth, and throat Denies: throat pain or nasal congestion Cardiovascular Reports: chest pain Respiratory Reports: cough; Denies: shortness of breath Gastrointestinal Denies: abdominal pain, nausea or vomiting Musculoskeletal Reports: extremity pain; Denies: back pain or neck pain Integumentary/Breast Denies: rash Neurological Denies: headache, numbness in extremities or weakness in extremities Hematologic/Lymphatic Denies: easy bruising or easy bleeding [facility] Medical History (Updated 03/01/24 @ 21:31 by JOSÉ MIGUEL Gibbs) (HFpEF) heart failure with preserved ejection fraction ?I50.30 - Unspecified diastolic (congestive) heart failure (ICD-10) Hypertensive emergency ?I16.1 - Hypertensive emergency (ICD-10) Chronic kidney disease ?N18.9 - Chronic kidney disease, unspecified (ICD-10) Hypertensive urgency ?I16.0 - Hypertensive urgency (ICD-10) Chest pain ?R07.9 - Chest pain, unspecified (ICD-10) Hypertensive urgency ?I16.0 - Hypertensive urgency (ICD-10) Raynaud disease ?I73.00 - Raynaud's syndrome without gangrene (ICD-10) Basal cell carcinoma of skin of nose ?C44.311 - Basal cell carcinoma of skin of nose (ICD-10) Elevated cholesterol ?E78.00 - Pure hypercholesterolemia, unspecified (ICD-10) Chronic kidney disease ?N18.9 - Chronic kidney disease, unspecified (ICD-10) HTN (hypertension) ?I10 - Essential (primary) hypertension (ICD-10) Diabetes ?E11.9 - Type 2 diabetes mellitus without complications (ICD-10) CAD (coronary artery disease) ?I25.10 - Atherosclerotic heart disease of [place] coronary artery without angina pectoris (ICD-10) Surgical History S/P CABG x 1 ?Z95.1 - Presence of aortocoronary bypass graft (ICD-10) H/O shoulder surgery ?Z98.890 - Other specified postprocedural states (ICD-10) History of cholecystectomy ?Z90.49 - Acquired absence of other specified parts of digestive tract (ICD- 10) History of hysterectomy ?Z90.710 - Acquired absence of both cervix and uterus (ICD-10) Family History Sister Family history of myocardial infarction Family history of hypertension Brother Family history of myocardial infarction Family history of diabetes mellitus Brother Family history of hypertension Father Family history of cancer Social History Smoking status: Former smoker Highest level of school completed/degree received: 12th grade, no diploma Exam Narrative Exam Narrative: Gen.: Awake, alert, in no distress Head: Normocephalic, atraumatic ENT: Moist mucous membranes Respiratory: No respiratory distress, lungs clear bilaterally Cardio: Regular rate and rhythm Gastrointestinal: Abdomen is soft, nondistended and nontender to palpation Extremities: Moves extremities equally, no pedal edema Psych: Normal mood and affect Neuro: No focal neuro deficit Skin: Warm, dry, intact Constitutional Vital Signs, click to edit/add: Last Vital Signs Temp 98.3 F 03/01/24 19:39 Pulse 68 03/01/24 20:51 Resp 20 03/01/24 20:51 BP 190/80 H 03/01/24 20:51 Pulse Ox 99 03/01/24 19:39 O2 Del Method Room Air 03/01/24 19:39 Course Vital Signs Vital signs: Vital Signs Temperature 98.3 F 03/01/24 19:39 Pulse Rate 76 03/01/24 19:39 Respiratory Rate 20 03/01/24 19:39 Blood Pressure 210/85 H 03/01/24 19:39 Pulse Oximetry 99 03/01/24 19:39 Oxygen Delivery Method Room Air 03/01/24 19:39 Temperature 98.3 F 03/01/24 19:39 Pulse Rate 68 03/01/24 20:51 Respiratory Rate 03/01/24 20:51 Blood Pressure 190/80 H 03/01/24 20:51 Pulse Oximetry 99 03/01/24 19:39 Oxygen Delivery Method Room Air 03/01/24 19:39 Medical Decision Making MDM Narrative Medical decision making narrative: Patient was medicated with aspirin, labetalol and Vasotec in addition to hydralazine for elevated blood pressure. She declined morphine and Zofran. Pain is 5/10 on reevaluation patient is resting comfortably. Lab studies are stable showing chronic anemia and chronic kidney disease. Patient is allergic to contrast dye and has an elevated creatinine, she is unable to have a CT angio of her chest although chest x-ray does not show any widened mediastinum and the patient has no severe or uncontrolled pain in the ER. Discussed with vicente cruz, we will admit the patient for cardiac rule out and control of her blood pressure to ICU for observation. Repeat troponin is pending prior to admission. Medical Records Medical records reviewed: Yes I reviewed the patient's medical records Lab Data Lab results reviewed: Yes I reviewed the patient's lab results Labs: Lab Results 03/01/24 Range/Units 20:04 WBC 7.0 (4.0-11.0) 10^3/uL RBC 3.01 L (4.20-5.40) 10^6/uL Hgb 9.5 L (12.0-16.0) g/dL Hct 27.8 L (36.0-48.0) % MCV 92.4 (81.0-99.0) fL MCH 31.6 (26.7-34.0) pg MCHC 34.2 (29.9-35.2) g/dL RDW 15.4 H (11.0-15.0) % Plt Count 218 (150-450) 10^3/uL MPV 9.3 L (9.5-13.5) fL Neut % (Auto) 50.5 (43.0-75.0) % Lymph % (Auto) 35.2 (20.5-60.0) % [place] % (Auto) 10.3 (1.7-12.0) % Eos % (Auto) 3.2 (0.9-7.0) % Baso % (Auto) 0.4 (0.2-2.0) % Neut # (Auto) 3.5 (1.4-6.5) 10^3/uL Lymph # (Auto) 2.5 (1.2-3.8) 10^3/uL [place] # (Auto) 0.7 (0.3-0.8) 10^3/uL Eos # (Auto) 0.2 (0.0-0.7) 10^3/uL Baso # (Auto) 0.0 (0.0-0.1) 10^3/uL Abs Immat Gran (auto) 0.03 (0.00-0.03) 10^3/uL Imm/Tot Granulo (auto) 0.4 (0.0-0.5) % PT 10.7 (9.0-11.6) sec INR 1.01 Sodium 138 (136-145) mmol/L Potassium 4.1 (3.5-5.1) mmol/L Chloride 103 (98-107) mmol/L Carbon Dioxide 23.0 (21.0-32.0) mmol/L Anion Gap 16.1 BUN 42.0 H (7.0-18.0) mg/dL Creatinine 2.23 H (0.55-1.02) mg/dL Est GFR ( Amer) 26 L (>=60) Est GFR (Non-Af Amer) 21 L (>=60) BUN/Creatinine Ratio 18.8 Glucose 188 H (74-106) mg/dL Calcium 8.7 (8.5-10.1) mg/dL Total Bilirubin 0.6 (0.2-1.0) mg/dL AST 16 (15-37) U/L ALT 29 (14-59) U/L Alkaline Phosphatase 106 (46-116) U/L Troponin I High Sens 11.7 (4.0-51.3) pg/mL NT-Pro-B Natriuret Pep 1228.0 (<=1800.0) pg/mL Total Protein 7.3 (6.4-8.2) g/dL Albumin 3.5 (3.4-5.0) g/dL Globulin 3.8 g/dL Albumin/Globulin Ratio 0.9 Imaging Data Chest x-ray: Attestation: I have reviewed the pertinent imaging results. ECG Data Attestation: I personally reviewed and interpreted this ECG as follows: (Normal sinus rhythm at a rate of 71, no acute ST elevation or ectopy. EKG reviewed by attending physician) Discharge Plan Discharge Chief Complaint: Chest Pain Clinical Impression: Hypertensive urgency, Chest pain Patient Disposition: Admitted as Observation Time of Disposition Decision: 21:31 Condition: Good Prescriptions / Home Meds: No Action atorvastatin 80 mg tablet 80 mg PO .QHS insulin aspart U-100 [Novolog FlexPen U-100 Insulin] 100 unit/mL (3 mL) insulin pen 12 unit SUBCUT DAILY Rx Instructions: 12 units am, 16units at lunch and 22 units in pm liothyronine 5 mcg tablet 10 mcg PO .QD magnesium oxide 400 mg (241.3 mg magnesium) tablet 400 mg PO TID pantoprazole 40 mg tablet,delayed release (DR/EC) 40 mg PO .QD ferrous sulfate 325 mg (65 mg iron) tablet 325 mg PO BID clonidine HCl 0.1 mg Tablet 0.2 mg PO BID Qty: 120 11RF fluconazole 100 mg tablet 100 mg PO DAILY Rx Instructions: 01/20/24-01/30/24 furosemide 20 mg tablet 20 mg PO DAILY levofloxacin 750 mg tablet 750 mg PO DAILY Rx Instructions: 01/19/24-01/29/24 levothyroxine 125 mcg tablet 125 mcg PO DAILY carvedilol 25 mg Tablet 50 mg PO BID allopurinol 100 mg Tablet 50 mg PO Q48H Qty: 30 11RF tramadol 50 mg Tablet 25 mg PO Q6H PRN (Reason: Pain) Qty: 14 0RF isosorbide mononitrate 60 mg Tablet Extended Release 24 Hr 60 mg PO QD Qty: 30 11RF Levemir FlexPen 100 unit/mL (3 mL) Insulin Pen 26 unit subcut BID Qty: 15 11RF Print Language: [place]bourgish Referrals: Merrick Rubi MD [Primary Care Provider] - 1 week
[2024-03-01 20:11] LABS: Basophils Percent Auto 0.4 % (0.2-2.0); Eosinophils Absolute Auto 0.2 10^3/uL (0.0-0.7); Eosinophils Percent Auto 3.2 % (0.9-7.0); Hematocrit 27.8 % (36.0-48.0); Hemoglobin 9.5 g/dL (12.0-16.0); Immature Granulocytes Abs Auto 0.03 10^3/uL (0.00-0.03); Immature Granulocytes Pct Auto 0.4 % (0.0-0.5); Lymphocytes Absolute Auto 2.5 10^3/uL (1.2-3.8); Lymphocytes Percent Auto 35.2 % (20.5-60.0); Mean Corpuscular HGB Conc 34.2 g/dL (29.9-35.2); Mean Corpuscular Hemoglobin 31.6 pg (26.7-34.0); Mean Corpuscular Volume 92.4 fL (81.0-99.0); Mean Platelet Volume 9.3 fL (9.5-13.5); Monocytes Absolute Auto 0.7 10^3/uL (0.3-0.8); Monocytes Percent Auto 10.3 % (1.7-12.0); Neutrophils Absolute Auto 3.5 10^3/uL (1.4-6.5); Neutrophils Percent Auto 50.5 % (43.0-75.0); Platelet Count 218 10^3/uL (150-450); Red Blood Count 3.01 10^6/uL (4.20-5.40); Red Cell Distribution Width 15.4 % (11.0-15.0)
[2024-03-01] MEDS: ENALAPRILAT DIHYDRATE 1.25 MG/ML VIAL IV (20:25)
[2024-03-01 20:33] LABS: Alanine Aminotransferase 29 U/L (14-59); Albumin Globulin Ratio 0.9; Albumin Level 3.5 g/dL (3.4-5.0); Alkaline Phosphatase 106 U/L (46-116); Anion Gap 16.1; Aspartate Amino Transferase 16 U/L (15-37); BUN Creatinine Ratio 18.8; Bilirubin Total 0.6 mg/dL (0.2-1.0); Calcium 8.7 mg/dL (8.5-10.1); Chloride 103 mmol/L (98-107); Estimated GFR (African America 26 (>=60); Estimated GFR (Non-African Ame 21 (>=60); Globulin 3.8 g/dL; Glucose 188 mg/dL (74-106); INR 1.01; Potassium 4.1 mmol/L (3.5-5.1); Prothrombin Time 10.7 sec (9.0-11.6); Sodium 138 mmol/L (136-145); Total Protein 7.3 g/dL (6.4-8.2); Troponin I High Sensitivity 11.7 pg/mL (4.0-51.3)
[2024-03-01] MEDS: LABETALOL HCL 20 MG/4 ML SYRINGE 10 MG IVP (20:36)
--- NOTE | 2024-03-01 20:41 | XR_ITS ---
[address] [address] Patient Name: KYLAH BERGER MRN: [id number] date: 1945 Sex: F Assigned Patient Location: ER Current Patient Location: ED.MAIN Accession/Order Number: [id number] Exam Date: 03/01/2024 20:50 Report Date: 03/01/2024 21:30 At the request of: ENEDINA WALKER Procedure: XR chest 1V EXAMINATION: XR chest 1V, , 03/01/2024 8:50 PM EDT INDICATION: Chest pain HISTORY: Ordering Provider Reason for Exam: Chest pain Technologist Note: Additional: COMPARISON: Chest x-ray dated 01/21/2024. TECHNIQUE: Chest x-ray: One view. FINDINGS: No pneumothorax, pleural effusion or focal airspace consolidation. Heart is normal in size. Patient is postmedian sternotomy. XR/XR chest 1V IMPRESSION: No acute cardiopulmonary process. Electronically authenticated by: ANGELINA BRISENO Date: 03/01/2024 21:30
[2024-03-01] MEDS: ASPIRIN 81 MG TAB.CHEW 162 MG PO (20:43)
[2024-03-01] MEDS: HYDRALAZINE HCL 20 MG/ML VIAL 10 MG IVP (22:16)
[2024-03-01 22:19] LABS: Troponin I High Sensitivity 12.1 pg/mL (4.0-51.3)
--- OUTSIDE RECORDS SUMMARY | 2024-03-01 23:16 | XMS_ITS ---
Patient Summarization (C-CDA 2.1 CCD) Created on: March 01, 2024 KYLAH ROBIN : 1945 Sex: Female Author Organization Sample organization Care Team Providers Care Ophthalmologist Retina Specialist Name Role Phone PHYSICIAN, DEFAULT Unavailable Unavailable PHYSICIAN, DEFAULT Unavailable Unavailable Doreen, Ron Unavailable Mary Anne Ackerman Unavailable Jana Monson Unavailable BHAVIK ., DR BARTLETT Consulting Unavailable HOY ., DR BARTLETT Primary Care Unavailable HOY ., DR BARTLETT Attending Unavailable HOY ., DR BARTLETT Admsherlyn Unavailable MARKER ., DR SNYDER Attending Unavailable [...] Unavailable Dhruv Rubi MD Primary Care Provider [phone] GA CRESPO Attending Unavailable GA CRESPO Attending Unavailable GREG TINEO Attending Unavailable GA CRESPO Attending Unavailable THUAN DELVALLE Attending Unavailable DHRUV RUBI Referring Unavailable DHRUV RUBI Primary Care Unavailable ELTAHAWY, EHAB Attending Unavailable Allergies Allergy Classification Reported Allergen(s) Allergy Type Date of Onset Reaction(s) Facility (20 sources) amLODIPine; Translations: [AMLODIPINE] Drug Allergy 03-28-20 05 [facility] (20 sources) Amoxicillin / Clavulanate Drug Allergy 11-23-19 21 Rash [facility] Other (20 sources) Contrast media Propensity to adverse reactions Unknown [facility] Other (2 sources) Doxazosin; Translations: [doxazosin] Drug Allergy Unknown [facility] Other (20 sources) Sulfamethoxazole / Trimethoprim Drug Allergy 11-23-19 21 Rash [facility] Other (20 sources) Doxazosin; Translations: [DOXAZOSIN] Drug Allergy 11-23-19 21 Unknown [facility] Other (9 sources) Amoxicillin / Clavulanate; Translations: [Augmentin] Drug Allergy 11-16-19 16 Unknown [facility] (1 source) amLODIPine Drug Allergy 04-25-20 14 [facility] (1 source) Sulfamethoxazole / Trimethoprim Drug Allergy 03-09-20 13 [facility] (3 sources) Iodinated Contrast Media; Translations: [IODINATED CONTRAST MEDIA] Propensity to adverse reactions to drug 11-23-[address] [facility] (2 sources) Sulfamethoxazole / Trimethoprim; Translations: [SULFAMETHOXAZOLE-T RIMETHOPRIM] Drug Allergy 08-04-20 15 [facility] (2 sources) AMOXICILLIN-POT CLAVULANATE; Translations: [AMOXICILLIN-POT CLAVULANATE] Propensity to adverse reactions to drug (disorder) 11-23-19 21 [facility] (1 source) Sulfamethoxazole; Translations: [SULFAMETHOXAZOLE] Drug Allergy 03-12-20 23 [facility] Repository Encounters Encounter Date Encounter Type Care Provider Facility Start: 02-10-2024 End: 02-10-2024 ambulatory AB [facility] Start: 01-17-2024 End: 01-17-2024 ambulatory THUAN DELVALLE [facility] Start: 01-16-2024 End: 01-16-2024 ambulatory GA CRESPO Not Available Start: 12-21-2023 Refill Luis dominique PA-C Work Phone: [facility] Comment on above: Med Refill Start: 11-28-2023 End: 11-28-2023 ambulatory GREG TINEO Not Available Start: 11-18-2023 End: 11-18-2023 ambulatory Ron Martinez Other [facility] Other Start: 11-18-2023 Office outpatient visit 15 minutes Ron Doreen [facility] Start: 11-05-2023 End: 11-05-2023 ambulatory GA H CRESPO Not Available Start: 11-04-2023 (INJECTION) INJECTION Ron Doreen [facility] Start: 11-04-2023 End: 11-04-2023 ambulatory Ron Doreen Other [facility] Other Start: 10-22-2023 End: 10-22-2023 ambulatory GA H CRESPO Not Available Start: 10-15-2023 End: 10-15-2023 ambulatory Ron Doreen Other [facility] Other Start: 10-15-2023 Office outpatient visit 15 minutes Ron Doreen [facility] Start: 10-08-2023 End: 10-08-2023 ambulatory Aziz Bakhous Other [facility] Other Start: 10-08-2023 Telephone encounter Aziz Bakhous [facility] Start: 09-15-2023 End: 09-15-2023 ambulatory Ron Doreen Other [facility] Other Start: 09-15-2023 Telephone encounter Ron Doreen [facility] Start: 09-09-2023 End: 09-09-2023 ambulatory Ron Doreen Other [facility] Other Start: 09-09-2023 Telephone encounter Ron Doreen [facility] Start: 08-27-2023 (INJECTION) INJECTION Aziz Bakhous [facility] Start: 08-27-2023 End: 08-27-2023 ambulatory Aziz Bakhous Other [facility] Other Start: 08-15-2023 (INJECTION) INJECTION Ron Doreen [facility] Start: 08-15-2023 End: 08-15-2023 ambulatory Ron Doreen Other [facility] Other Start: 08-13-2023 (INJECTION) INJECTION Ron Doreen [facility] Start: 08-13-2023 End: 08-13-2023 ambulatory Ron Doreen Other [facility] Other Start: 08-01-2023 End: 08-01-2023 ambulatory Ron Doreen Other [facility] Other Start: 08-01-2023 Office outpatient visit 15 minutes Ron Doreen [facility] Start: 06-24-2023 End: 06-24-2023 ambulatory Ron Doreen Other [facility] Other Start: 06-24-2023 Office outpatient visit 10 minutes Ron Doreen [facility] Start: 06-06-2023 End: 06-06-2023 ambulatory Ron Doreen Other [facility] Other Start: 06-06-2023 Office outpatient visit 15 minutes Ron Doreen [facility] Start: 04-30-2023 End: 04-30-2023 ambulatory Ron Doreen Other [facility] Other Start: 04-30-2023 Office outpatient visit 15 minutes Ron Doreen [facility] Start: 04-06-2023 (INJECTION) INJECTION Ron Doreen [facility] Start: 04-06-2023 End: 04-06-2023 ambulatory Ron Doreen Other [facility] Other Start: 04-06-2023 Telephone encounter Ron Doreen [facility] Start: 04-02-2023 End: 04-02-2023 ambulatory Ron Doreen Other [facility] Other Start: 04-02-2023 Office outpatient visit 15 minutes Ron Doreen [facility] Start: 04-02-2023 Telephone encounter Ron Doreen [facility] Start: 03-07-2023 End: 03-07-2023 ambulatory Ron Doreen Other [facility] Other Start: 03-07-2023 Office outpatient visit 15 minutes Ron Doreen [facility] Start: 01-22-2023 End: 01-23-2023 ambulatory RON DOREEN Facility:[facility] Start: 12-20-2022 End: 12-20-2022 ambulatory Ron Doreen Other [facility] Other Start: 12-20-2022 Office outpatient visit 15 minutes Ron Doreen [facility] Start: 12-17-2022 End: 12-18-[address] DHRUV RUBI . Facility:[facility] Start: 12-10-2022 End: 12-11-2022 ambulatory RON DOREEN Facility:[facility] Start: 11-20-2022 End: 11-21-[address] BENI APARICIO Facility:[facility] Start: 11-05-2022 End: 11-05-2022 ambulatory Ron Doreen Other [facility] Other Start: 11-05-2022 Office outpatient visit 15 minutes Ron Doreen [facility] Start: 10-29-2022 End: 10-30-[address] JANA MONSON Facility:[facility] Start: 10-24-2022 End: 10-24-[address] LILLIAN ACOSTA . Facility:[facility] Start: 10-24-2022 End: 10-25-[address] DHRUV RUBI . Facility:[facility] Start: 09-27-2022 End: 09-27-2022 ambulatory Jana Monson Other [facility] Other Start: 09-27-2022 Office outpatient visit 15 minutes Jana Elashi [facility] Start: 09-18-2022 End: 09-19-2022 ambulatory RON DOREEN Facility:[facility] Start: 09-11-2022 End: 09-11-[address] DHRUV RUBI . Facility:[facility] Start: 08-22-2022 End: 08-22-2022 ambulatory Ron Doreen Other [facility] Other Start: 08-22-2022 Office outpatient visit 15 minutes Ron Doreen [facility] Start: 08-13-2022 End: 08-14-2022 ambulatory RON DOREEN Facility:[facility] Start: 06-25-2022 End: 06-26-[address] DHRUV RUBI . Facility:[facility] Start: 06-18-2022 End: 06-18-[address] DHRUV RUBI . Facility:[facility] Start: 06-01-2022 End: 06-02-[address] YANET HUERTA Facility:[facility] Start: 05-28-2022 End: 05-28-2022 ambulatory Ron Doreen Other [facility] Other Start: 05-28-2022 Telephone encounter Ron Doreen [facility] Start: 05-21-2022 End: 05-22-[address] DHRUV RUBI . Facility:[facility] Start: 05-16-2022 End: 05-16-2022 ambulatory Ron Doreen Other [facility] Other Start: 05-16-2022 Telephone encounter Ron Doreen [facility] Start: 05-10-2022 End: 05-10-2022 ambulatory Ron Doreen Other [facility] Other Start: 05-10-2022 Telephone encounter Ron Doreen [facility] Start: 05-08-2022 End: 05-08-2022 ambulatory Ron Doreen Other [facility] Other Start: 05-08-2022 Office outpatient visit 25 minutes Ron Doreen [facility] Start: 05-02-2022 End: 05-03-2022 ambulatory RON DOREEN Facility: Start: 04-24-2022 End: 04-24-2022 ambulatory Azduc Mensahs Other [facility] Other Start: 04-24-2022 Telephone encounter Azduc Mensahs [facility] Start: 01-18-2022 End: 01-18-2022 ambulatory Ron Doreen Other [facility] Other Start: 01-18-2022 Office outpatient visit 25 minutes Ron Doreen [facility] Start: 05-21-2017 End: 05-22-2017 Ambulatory DEFAULT PHYSICIAN Facility:[facility] Goals Date Patient Goal Desired Activity /State Personal health goal Comment on above: Formatting of this n ote might be different from the original. Evaluation of progress towards goal: return home with homecare and support from [facility], children and grandchildren Immunizations Immunization Date Immunization Notes Care Provider Lai montemayor 07-18-2020 Seasonal trivalent influenza vaccine, adjuvanted, preservative free Luis Kb PA-C Work Phone: [facility] 07-18-2020 influenza virus vacc ine, unspecified formulation Luis Kb PA-C Work Phone: [facility] 07-22-2019 Seasonal trivalent influenza vaccine, adjuvanted, preservative free Luis Kb PA-C Work Phone: [facility] 07-14-2018 Seasonal trivalent influenza vaccine, adjuvanted, preservative free Luis Kb PA-C Work Phone: [facility] 07-15-2017 pneumococcal conjuga te vaccine, 13 valent Luis Kb PA-C Work Phone: [facility] 07-08-2017 influenza, high dose seasonal, preservative-free Luis Kb PA-C Work Phone: [facility] 07-25-2016 influenza, high dose seasonal, preservative-free Luis Kb PA-C Work Phone: [facility] 07-11-2015 influenza, high dose seasonal, preservative-free Luis Kb PA-C Work Phone: [facility] 07-16-2014 influenza, seasonal, injectable Luis Kb PA-C Work Phone: [facility] 07-10-2013 influenza, seasonal, injectable Luis Kb PA-C Work Phone: [facility] 08-08-2012 influenza virus vacc ine, unspecified formulation Luis Kb PA-C Work Phone: [facility] 08-08-2012 pneumococcal polysaccharide vaccine, 23 valent Luis Kb PA-C Work Phone: [facility] 07-11-2011 influenza virus vacc ine, unspecified formulation Luis Kb PA-C Work Phone: [facility] 08-15-2010 influenza virus vacc ine, unspecified formulation Luis Kb PA-C Work Phone: [facility] 07-26-2009 influenza virus vacc ine, unspecified formulation Luis Kb PA-C Work Phone: [facility] 08-04-2008 influenza virus vacc ine, unspecified formulation Luis Kb PA-C Work Phone: [facility] 08-13-2007 influenza virus vacc ine, unspecified formulation Luis Kb PA-C Work Phone: [facility] 08-11-2004 influenza virus vacc ine, unspecified formulation Luis Kb PA-C Work Phone: [facility] 08-09-2003 influenza virus vacc ine, unspecified formulation Luis Kb PA-C Work Phone: [facility] 08-09-2003 pneumococcal polysaccharide vaccine, 23 valent Luis Quiles PA-C Work Phone: [facility] Medications Current Medications Medication Drug Class(es) [...] coronary artery bypass graft , Atherosclerosis of [place] coronary artery of [place] heart without angina pectoris , Paroxysmal atrial [...] (LIPITOR) 80 mg tablet Indications: Atherosclerosis of [place] coronary artery of [place] heart without angina pectoris , H/O four [...] Active docusate sodium 50 mg / sennosides, retirement 8.6 mg oral tablet (5 sources) take 1 tablet by mouth every twelve hours Sennosides-Docusate Sodium 8.6-50 MG 1 tablet in the evening as needed Orally every 12 hours Active epoetin johnna-epbx 16862 UNT/ML Injectable Solution [Retacrit] (14 sources) Retacrit 38727 U NIT/ML as directed Injection Active ferrous [...] 12/05/2021 Active take 2 tablets by mo uth every twenty-four hours Liothyronine Sodium 5 MCG [...] in the morning. 0 12/19/2020 Active retacrit 45514 unit/ml solution (5 sources) Retacrit 45043 UNIT/ML as directed Injection Active Sennosides-Docusate Sodium [...] 05-30-2022 RETACRIT INJEC TION May, 1000 mL Payers Date Payer Category Payer Medicare A[employer] MEDICARE A ETNA MEDICARE PLAN (HMO) [id number] 2021-[facility] [phone] [address] [place] [id number] 1960 Medicare [id number] 1945 Unknown [id number] 2.16.840.1.017070.3.579.2.593 1945 Unknown [id number] 2.16.840.1.884976.3.579.2.593 1945 Unknown [id number] 2.16.840.1.952181.3.579.2.593 1945 Unknown [id number] 2.16.840.1.193123.3.579.2.593 1944 Unknown [id number] 2.16.840.1.412239.3.579.2.593 1944 Unknown [id number] 2.16.840.1.425496.3.579.2.593 1944 Unknown [id number] 2.16.840.1.128583.3.579.2.593 1944 Unknown [id number] 2.16.840.1.693336.3.579.2.593 1944 Unknown [id number] 2.16.840.1.814366.3.579.2.593 1944 Unknown [id number] 2.16.840.1.438032.3.579.2.593 1944 Unknown [id number] 2.16.840.1.018124.3.579.2.593 1944 Unknown [id number] 2.16.840.1.727077.3.579.2.593 1944 Unknown [id number] 2.16.840.1.416026.3.579.2.593 1944 Unknown [id number] 2.16.840.1.043683.3.579.2.593 1944 Unknown [id number] 2.16.840.1.841267.3.579.2.593 1944 Unknown [id number] 2.16.840.1.377631.3.579.2.593 1944 Unknown [id number] 2.16.840.1.386853.3.579.2.1259 1944 Unknown [id number] 2.16.840.1.840291.3.579.2.1259 1944 Unknown [id number] 2.16.840.1.573453.3.579.2.1259 1944 Unknown [id number] 2.16.840.1.653766.3.579.2.1259 1945 Unknown [id number] 2.16.840.1.771118.3.579.2.1286 Unknown Plan of Treatment Date Care Activity Detail Author Start: 03-19-2024 Adult BMI Screening Adult BMI Screening [facility] Start: 03-19-2024 Tobacco Screening Tobacco Screening [facility] Start: 06-07-2023 COVID-19 Vaccine ( season) COVID-19 Vaccine ( season) [facility] Start: 06-07-2023 Influenza vaccination Influenza Vaccine [facility] Start: 12-28-2021 Depression Screening Depression Screening [facility] Start: 2009 Fall Risk Screening Fall Risk Screening [facility] Start: 1994 Administration of varicella zoster vaccine Zoster (Shingles) Vaccine (1 of 2) [facility] Start: 12-15-1963 DTaP,Tdap and Td Vaccines (1 - Tdap) DTaP,Tdap and Td Vaccines (1 - Tdap) [facility] Start: 1962 Adult BMI Follow Up Plan Adult BMI Follow Up Plan [facility] Start: 1945 Medicare Annual Wellness Visit Medicare Annual Wellness Visit [facility] Problems Active Problems Problem Classification Problem Date [...] Coronary atherosclerosis; Translations: [Atherosclerotic heart disease of [place] coronary artery without angina pectoris] Onset: 1 [...] Translations: [OTHER LOW BACK PAIN] Onset: 05-21-2022 Procedures Date Procedure Procedure Detail Performing Clinician Start: 01-11-2021 History of coronary artery bypass grafting H/O four vessel coronary artery bypass graft Luis Quiles PA-C Work Phone: Start: 12-28-2020 Adult depression screening assessment Luis Quiles PA-C Work Phone: History of coronary artery bypass grafting H/O four vessel coronary artery bypass graft Luis Quiles PA-C Work Phone: Results Test Name Value Interpretation Reference Range Facility Office Visiton 02-10-2024 Follow-up visit [id number] Garima Robin 1945 F Date Provider Department Center 02/10/2024 271-KERITANEREIDA, EHAB [facility] No family history on file Level of Service:59205 NM OFFICE/OUTPATIENT ESTABLISHED MOD MDM 30 MIN Normal [facility] HEMOGRAM AND PLATELon 2022 Hematocrit (Bld) [Volume fraction] 28.8 % Critically low 36.0-48.0 [facility] Comment on above: Performed By: #### H H #### [facility] [address] [address] [address] Ember Teague Hemoglobin (Bld) [Mass/Vol] 9.6 g/dL Critically low 12.0-16.0 [facility] Comment on above: Performed By: #### H H #### [facility] [address] [address] [address] Ember Teague MCH (RBC) [Entitic mass] 30.7 pg Normal 26.7-34.0 [facility] Comment on above: Performed By: #### H H #### [facility] [address] [address] [address] Ember Teague MCHC (RBC) [Mass/Vol] 33.3 g/dL Normal 29.9-35.2 [facility] Comment on above: Performed By: #### H H #### [facility] [address] [address] [address] Ember Teague MCV (RBC) [Entitic vol] 92.0 fL Normal 81.0-99.0 [facility] Comment on above: Performed By: #### H H #### [facility] [address] [address] [address] Ember Teague PLT 214 103/ul Normal 150-450 [facility] Comment on above: Performed By: #### H H #### [facility] [address] [address] [address] Ember Teague RBC 3.13 106/ul Critically low 4.20-5.[address] [facility] Comment on above: Performed By: #### H H #### [facility] [address] [address] [address] Ember Teague WBC 7.4 103/ul Normal 4.0-11.0 [facility] Comment on above: Performed By: #### H H #### [facility] [address] [address] [address] Ember Teague MAGNESIUMon 01-22-2023 Magnesium [Mass/Vol] 1.8 mg/dL Normal 1.8-2.4 [facility] Comment on above: Performed By: #### M G, RENAL #### [facility] [address] [address] [address] Ember Teague RENAL FUNCTION PANELon 01-22 Albumin [Mass/Vol] 3.6 g/dL Normal 3.4-5.0 [facility] Comment on above: Performed By: #### M G, RENAL #### [facility] [address] [address] [address] Ember Teague Calcium [Mass/Vol] 9.7 mg/dL Normal 8.5-10.1 [facility] Comment on above: Performed By: #### M G, RENAL #### [facility] [address] [address] [address] Ember Teague Chloride [Moles/Vol] 105 mmol/L Normal 98-107 [facility] Comment on above: Performed By: #### M G, RENAL #### [facility] [address] [place] [address] Dr. Ember Teague CO2 [Moles/Vol] 22.6 mmol/L Normal 21.0-32.0 [facility] Comment on above: Performed By: #### M G, RENAL #### [facility] [address] [place] [address] Dr. Ember Teague Creatinine [Mass/Vol] 2.18 mg/dL Critically high 0.55-1.02 [facility] Comment on above: Performed By: #### M G, RENAL #### [facility] [address] [place] [address] Dr. Ember Teague EGFR-AF NAURUAN 26 mL/min/1.73m2 Critically low >=60 [facility] Comment on above: Performed By: #### M G, RENAL #### [facility] [address] [place] [address] Dr. Ember Teague EGFR-NON AF NAURUAN 22 mL/min/1.73m2 Critically low >=60 [facility] Comment on above: Performed By: #### M G, RENAL #### [facility] [address] [place] [address] Dr. Ember Teague Glucose [Mass/Vol] 134 mg/dL Critically high 74-106 [facility] Comment on above: Performed By: #### M G, RENAL #### [facility] [address] [place] [address] Dr. Ember Teague Phosphate [Mass/Vol] 4.6 mg/dL Normal 2.6-4.7 [facility] Comment on above: Performed By: #### M G, RENAL #### [facility] [address] [address] [address] Ember Teague Potassium [Moles/Vol] 5.1 mmol/L Normal 3.5-5.1 [facility] Comment on above: Performed By: #### M G, RENAL #### [facility] [address] [address] [address] Ember Teague Sodium [Moles/Vol] 138 mmol/L Normal 136-145 [facility] Comment on above: Performed By: #### M G, RENAL #### [facility] [address] [place] [address] Dr. Ember Teague Urea nitrogen [Mass/Vol] 61.0 mg/dL Critically high 7.0-18.0 [facility] Comment on above: Performed By: #### M G, RENAL #### [facility] [address] [place] [address] Dr. Ember Teague MG MAMM SCREEN 3D MAY CADon 12-17-2022 MG MAMM SCREEN 3D MAY CAD Patient: KYLAH ROBIN Exam Date: 12/17/2022 : 1945 Gender:F Ordering : DR DHRUV RUBI . Admission #: [id number] Family : Order #: [id number] CLICK HERE TO VIEW EXAM RADIOLOGY REPORT [...] at age 61. LOCATION: [facility] BREAST COMPOSITION: Scattered areas fibroglandular [...] 12/17/2022 at 11:59 Normal [facility] FERRITINon 12-10-2022 Ferritin [Mass/Vol] 681.0 ng/mL Critically high 8.0-252.0 [facility] Comment on above: Performed By: #### P THINT #### [facility] [address] [place] [address] Dr. Ember Teague HEMOGRAM AND PLATELon 2022 Hematocrit (Bld) [Volume fraction] 27.1 % Critically low 36.0-48.0 [facility] Comment on above: Performed By: #### C VDTBH #### [facility] [address] [place] [address] Dr. Ember Teague Hemoglobin (Bld) [Mass/Vol] 9.7 g/dL Critically low 12.0-16.0 [facility] Comment on above: Performed By: #### C VDTBH #### [facility] [address] [place] [address] Dr. Ember Teague MCH (RBC) [Entitic mass] 31.4 pg Normal 26.7-34.0 [facility] Comment on above: Performed By: #### C VDTBH #### [facility] [address] [place] [address] Dr. Ember Teague MCHC (RBC) [Mass/Vol] 35.8 g/dL Critically high 29.9-35.2 [facility] Comment on above: Performed By: #### C VDTBH #### [facility] [address] [place] [address] Dr. Ember Teague MCV (RBC) [Entitic vol] 87.7 fL Normal 81.0-99.0 [facility] Comment on above: Performed By: #### C VDTBH #### [facility] [address] [place] [address] Dr. Ember Teague PLT 218 103/ul Normal 150-450 [facility] Comment on above: Performed By: #### C VDTBH #### [facility] [address] [address] [address] Ember Teague RBC 3.09 106/ul Critically low 4.20-5.40 [facility] Comment on above: Performed By: #### C VDTBH #### [facility] [address] [address] [address] Ember Teague WBC 6.6 103/ul Normal 4.0-11.0 [facility] Comment on above: Performed By: #### C VDTBH #### [facility] [address] [place] [address] Dr. Ember Teague IRON AND TIBCon 12-10-2022 % SATURATION 30.2 % Normal [facility] Comment on above: Performed By: #### P THINT #### [facility] [address] [place] [address] Dr. Ember Teague Iron [Mass/Vol] 84.0 ug/dL Normal 50.0-170.[address] [facility] Comment on above: Performed By: #### P THINT #### [facility] [address] [place] [address] Dr. Ember Teague TIBC DIRECT 278.0 ug/dL Normal 250.0-450.0 [facility] Comment on above: Performed By: #### P THINT #### [facility] [address] [place] [address] Dr. Ember Teague XR FOOT MAY MIN [...] Date: 2022-11-20 14:03 Normal [facility] HEMOGRAM AND PLATELon 2022 Hematocrit (Bld) [Volume fraction] 27.7 % Critically low 36.0-48.0 [facility] Comment on above: Performed By: #### R ENAL #### [facility] [address] [place] [address] Dr. Ember Teague Hemoglobin (Bld) [Mass/Vol] 10.0 g/dL Critically low 12.0-16.0 [facility] Comment on above: Performed By: #### R ENAL #### [facility] [address] [place] [address] Dr. Ember Teague MCH (RBC) [Entitic mass] 31.6 pg Normal 26.7-34.0 [facility] Comment on above: Performed By: #### R ENAL #### [facility] [address] [place] [address] Dr. Ember Teague MCHC (RBC) [Mass/Vol] 36.1 g/dL Critically high 29.9-35.2 [facility] Comment on above: Performed By: #### R ENAL #### [facility] [address] [place] [address] Dr. Ember Teague MCV (RBC) [Entitic vol] 87.7 fL Normal 81.0-99.0 [facility] Comment on above: Performed By: #### R ENAL #### [facility] [address] [place] [address] Dr. Ember Teague PLT 182 103/ul Normal 150-450 [facility] Comment on above: Performed By: #### R ENAL #### [facility] [address] [place] [address] Dr. Ember Teague RBC 3.16 106/ul Critically low 4.20-5.[address] [facility] Comment on above: Performed By: #### R ENAL #### [facility] [address] [address] [address] Ember Teague WBC 6.8 103/ul Normal 4.0-11.0 [facility] Comment on above: Performed By: #### R ENAL #### [facility] [address] [address] [address] Ember Teague PROF CHEM 8 (BAS METB)on Anion gap [Moles/Vol] 17.6 mmol/L Normal [facility] Comment on above: Performed By: #### C VDTBH #### [facility] [address] [address] [address] Ember Teague Calcium [Mass/Vol] 9.0 mg/dL Normal 8.5-10.1 [facility] Comment on above: Performed By: #### C VDTBH #### [facility] [address] [address] [address] Ember Teague Chloride [Moles/Vol] 104 mmol/L Normal 98-107 [facility] Comment on above: Performed By: #### C VDTBH #### [facility] [address] [address] [address] Ember Teague CO2 [Moles/Vol] 22.2 mmol/L Normal 21.0-32.0 [facility] Comment on above: Performed By: #### C VDTBH #### [facility] [address] [address] [address] Ember Teague Creatinine [Mass/Vol] 2.03 mg/dL Critically high 0.55-1.02 [facility] Comment on above: Performed By: #### C VDTBH #### [facility] [address] [address] [address] Ember Teague EGFR-AF NAURUAN 29 mL/min/1.73m2 Critically low >=60 [facility] Comment on above: Performed By: #### C VDTBH #### [facility] [address] [address] [address] Ember Teague EGFR-NON AF NAURUAN 24 mL/min/1.73m2 Critically low >=60 [facility] Comment on above: Performed By: #### C VDTBH #### [facility] [address] [address] [address] Ember Teague Glucose [Mass/Vol] 154 mg/dL Critically high 74-106 [facility] Comment on above: Performed By: #### C VDTBH #### [facility] [address] [address] [address] Ember Teague Potassium [Moles/Vol] 4.8 mmol/L Normal 3.5-5.1 [facility] Comment on above: Performed By: #### C VDTBH #### [facility] [address] [address] [address] Ember Teague Sodium [Moles/Vol] 139 mmol/L Normal 136-145 [facility] Comment on above: Performed By: #### C VDTBH #### [facility] [address] [place] [address] Dr. Ember Teague Urea nitrogen [Mass/Vol] 43.0 mg/dL Critically high 7.0-18.0 [facility] Comment on above: Performed By: #### C VDTBH #### [facility] [address] [place] [address] Dr. Ember Teague Urea nitrogen/Creatinine [Mass ratio] 21.2 mg/mg [facility] Comment on above: Performed By: #### C VDTBH #### [facility] [address] [place] [address] Dr. Ember Teague CULTURE SPUTUMon 10-24-2022 CULTURE SPUTUM Culture Observations : Beta lactamase positive Isolate 1 Haemophilus influenzae Moderate growth of Normal [facility] Comment on above: Performed By: #### R ENAL #### [facility] [address] [place] [address] Dr. Ember Teague SPUTUM GRAM STAINon 10-24-19 COMMENTS Normal [facility] Comment on above: Performed By: #### R ENAL #### [facility] [address] [place] [address] Dr. Ember Teague DIPHTHEROIDS Normal [facility] Comment on above: Performed By: #### R ENAL #### [facility] [address] [address] [address] Ember Teague EPITHELIALS >25 Normal [facility] Comment on above: Performed By: #### R ENAL #### [facility] [address] [address] [address] Ember Teague FUNGAL ELEMENTS Normal [facility] Comment on above: Performed By: #### R ENAL #### [facility] [address] [address] [address] Ember Teague GRAM NEG BACILLI Normal [facility] Comment on above: Performed By: #### R ENAL #### [facility] [address] [address] [address] Ember LOCKWOOD NEG DIPPLOCOCCI FEW Normal [facility] Comment on above: Performed By: #### R ENAL #### [facility] [address] [address] [address] Ember Teague GRAM POS BACILLI FEW Normal [facility] Comment on above: Performed By: #### R ENAL #### [facility] [address] [address] [address] Ember Teague GRAM POSITIVE COCCI MANY Normal [facility] Comment on above: Performed By: #### R ENAL #### [facility] [address] [address] [address] Ember Taegue WBC (Bld) [#/Vol] 10*3/uL Normal [facility] Comment on above: Performed By: #### R ENAL #### [facility] [address] [address] [address] Ember Teague XR CHEST 2 Von [...] ANGELINA ANDERSRASHEED Date: 2022-10-24 16:22 Normal [facility] FERRITINon 09-18-2022 Ferritin [Mass/Vol] 612.0 ng/mL Critically high 8.0-252.0 [facility] Comment on above: Performed By: #### F ERR, FETIBC #### [facility] [address] [place] [address] Dr. Ember Teague HEMOGRAM AND PLATELon 2021 Hematocrit (Bld) [Volume fraction] 28.1 % Critically low 36.0-48.0 [facility] Comment on above: Performed By: #### C BC #### [facility] [address] [place] [address] Dr. Ember Teague Hemoglobin (Bld) [Mass/Vol] 9.7 g/dL Critically low 12.0-16.0 [facility] Comment on above: Performed By: #### C BC #### [facility] [address] [place] [address] Dr. Ember Teague MCH (RBC) [Entitic mass] 31.3 pg Normal 26.7-34.0 [facility] Comment on above: Performed By: #### C BC #### [facility] [address] [place] [address] Dr. Ember Teague MCHC (RBC) [Mass/Vol] 34.5 g/dL Normal 29.9-35.2 [facility] Comment on above: Performed By: #### C BC #### [facility] [address] [place] [address] Dr. Ember Teague MCV (RBC) [Entitic vol] 90.6 fL Normal 81.0-99.0 [facility] Comment on above: Performed By: #### C BC #### [facility] [address] [place] [address] Dr. Ember Teague PLT 183 103/ul Normal 150-450 [facility] Comment on above: Performed By: #### C BC #### [facility] [address] [place] [address] Dr. Ember Teague RBC 3.10 106/ul Critically low 4.20-5.[address] [facility] Comment on above: Performed By: #### C BC #### [facility] [address] [place] [address] Dr. Ember Teague WBC 7.2 103/ul Normal 4.0-11.0 [facility] Comment on above: Performed By: #### C BC #### [facility] [address] [place] [address] Dr. Ember Teague IRON AND TIBCon 09-18-2022 % SATURATION 36.0 % Normal [facility] Comment on above: Performed By: #### F ERR, FETIBC #### [facility] [address] [place] [address] Dr. Ember Teague Iron [Mass/Vol] 77.0 ug/dL Normal 50.0-170.[address] [facility] Comment on above: Performed By: #### F ERR, FETIBC #### [facility] [address] [place] [address] Dr. Ember Teague TIBC DIRECT 214.0 ug/dL Critically low 250.0-450.0 [facility] Comment on above: Performed By: #### F ERR, FETIBC #### [facility] [address] [place] [address] Dr. Ember Teague RENAL FUNCTION PANELon 09-18 Albumin [Mass/Vol] 3.7 g/dL Normal 3.4-5.0 [facility] Comment on above: Performed By: #### R ENAL #### [facility] [address] [place] [address] Dr. Ember Teague Calcium [Mass/Vol] 9.5 mg/dL Normal 8.5-10.1 [facility] Comment on above: Performed By: #### R ENAL #### [facility] [address] [place] [address] Dr. Ember Teague Chloride [Moles/Vol] 103 mmol/L Normal 98-107 [facility] Comment on above: Performed By: #### R ENAL #### [facility] [address] [place] [address] Dr. Ember Teague CO2 [Moles/Vol] 21.1 mmol/L Normal 21.0-32.0 [facility] Comment on above: Performed By: #### R ENAL #### [facility] [address] [address] [address] Ember Teague Creatinine [Mass/Vol] 1.85 mg/dL Critically high 0.55-1.02 [facility] Comment on above: Performed By: #### R ENAL #### [facility] [address] [address] [address] Ember Teague EGFR-AF NAURUAN 32 mL/min/1.73m2 Critically low >=60 [facility] Comment on above: Performed By: #### R ENAL #### [facility] [address] [address] [address] Ember Teague EGFR-NON AF NAURUAN 26 mL/min/1.73m2 Critically low >=60 [facility] Comment on above: Performed By: #### R ENAL #### [facility] [address] [address] [address] Ember Teague Glucose [Mass/Vol] 183 mg/dL Critically high 74-106 [facility] Comment on above: Performed By: #### R ENAL #### [facility] [address] [address] [address] Ember Teague Phosphate [Mass/Vol] 3.7 mg/dL Normal 2.6-4.7 [facility] Comment on above: Performed By: #### R ENAL #### [facility] [address] [address] [address] Ember Teague Potassium [Moles/Vol] 4.9 mmol/L Normal 3.5-5.1 [facility] Comment on above: Performed By: #### R ENAL #### [facility] [address] [address] [address] Ember Teague Sodium [Moles/Vol] 138 mmol/L Normal 136-145 [facility] Comment on above: Performed By: #### R ENAL #### [facility] [address] [place] [address] Dr. Ember Teague Urea nitrogen [Mass/Vol] 40.0 mg/dL Critically high 7.0-18.0 [facility] Comment on above: Performed By: #### R ENAL #### [facility] [address] [place] [address] Dr. Ember Teague CULTURE URINEon 09-15-2022 CULTURE [...] Trimethoprim/Sulfamet hoxazole <=20 S F Normal [facility] Comment on above: Performed By: #### R ENAL #### [facility] [address] [place] [address] Dr. Ember Teague BNPon 09-11-2022 Natriuretic peptide B (Bld) [Mass/Vol] 408.0 pg/mL Normal <=1,800.0 [facility] Comment on above: Performed By: #### P THINT #### [facility] [address] [place] [address] Dr. Ember Teague CBC AUTO DIFFon 09-11-2022 BASO # 0.0 103/ul Normal 0.0-0.1 [facility] Comment on above: Performed By: #### C BC #### [facility] [address] [place] [address] Dr. Ember Teague Basophils/100 WBC (Bld) 0.3 % Normal 0.2-2.0 [facility] Comment on above: Performed By: #### C BC #### [facility] [address] [place] [address] Dr. Ember Teague EO # 0.1 103/ul Normal 0.0-0.7 [facility] Comment on above: Performed By: #### C BC #### [facility] [address] [place] [address] Dr. Ember Teague Eosinophils/100 WBC (Bld) 1.9 % Normal 0.9-7.0 [facility] Comment on above: Performed By: #### C BC #### [facility] [address] [place] [address] Dr. Ember Teague Erythrocyte distribution width (RBC) [Ratio] 15.2 % Critically high 11.0-15.0 [facility] Comment on above: Performed By: #### C BC #### [facility] [address] [place] [address] Dr. Ember Teague Hematocrit (Bld) [Volume fraction] 26.6 % Critically low 36.0-48.0 [facility] Comment on above: Performed By: #### C BC #### [facility] [address] [place] [address] Dr. Ember Teague Hemoglobin (Bld) [Mass/Vol] 9.0 g/dL Critically low 12.0-16.0 [facility] Comment on above: Performed By: #### C BC #### [facility] [address] [place] [address] Dr. Ember Teague IG # 0.02 10e3/ul Normal 0.00-0.03 [facility] Comment on above: Performed By: #### C BC #### [facility] [address] [place] [address] Dr. Ember Teague IG % 0.3 % Normal 0.0-0.5 [facility] Comment on above: Performed By: #### C BC #### [facility] [address] [place] [address] Dr. Ember Teague LYMPH # 1.9 103/ul Normal 1.2-3.8 [facility] Comment on above: Performed By: #### C BC #### [facility] [address] [place] [address] Dr. Ember Teague Lymphocytes/100 WBC (Bld) 32.4 % Normal 20.5-60.0 [facility] Comment on above: Performed By: #### C BC #### [facility] [address] [place] [address] Dr. Ember Teague MANUAL DIFF REQ NO Normal [facility] Comment on above: Performed By: #### C BC #### [facility] [address] [place] [address] Dr. Ember Teague MCH (RBC) [Entitic mass] 31.1 pg Normal 26.7-34.0 [facility] Comment on above: Performed By: #### C BC #### [facility] [address] [place] [address] Dr. Ember Teague MCHC (RBC) [Mass/Vol] 33.8 g/dL Normal 29.9-35.2 [facility] Comment on above: Performed By: #### C BC #### [facility] [address] [place] [address] Dr. Ember Teague MCV (RBC) [Entitic vol] 92.0 fL Normal 81.0-99.0 [facility] Comment on above: Performed By: #### C BC #### [facility] [address] [place] [address] Dr. Ember Teague MONO # 0.6 103/ul Normal 0.3-0.8 [facility] Comment on above: Performed By: #### C BC #### [facility] [address] [place] [address] Dr. Ember Teague Monocytes/100 WBC (Bld) 10.0 % Normal 1.7-12.0 [facility] Comment on above: Performed By: #### C BC #### [facility] [address] [place] [address] Dr. Ember Teague NEUT # 3.2 103/ul Normal 1.4-6.5 [facility] Comment on above: Performed By: #### C BC #### [facility] [address] [place] [address] Dr. Ember Teague Neutrophils/100 WBC (Bld) 55.1 % Normal 43.0-75.0 [facility] Comment on above: Performed By: #### C BC #### [facility] [address] [address] [address] Ember Teague Platelet mean volume (Bld) [Entitic vol] 9.4 fL Critically low 9.5-13.5 [facility] Comment on above: Performed By: #### C BC #### [facility] [address] [address] [address] Ember Teague PLT 196 103/ul Normal 150-450 [facility] Comment on above: Performed By: #### C BC #### [facility] [address] [address] [address] Ember Teague RBC 2.89 106/ul Critically low 4.20-5.40 [facility] Comment on above: Performed By: #### C BC #### [facility] [address] [place] [address] Dr. Ember Teague WBC 5.8 103/ul Normal 4.0-11.0 [facility] Comment on above: Performed By: #### C BC #### [facility] [address] [place] [address] Dr. Ember Teague PROF 14(COMP METB)on 022 Albumin [Mass/Vol] 3.7 g/dL Normal 3.4-5.0 [facility] Comment on above: Performed By: #### P THINT #### [facility] [address] [place] [address] Dr. Ember Teague Albumin/Globulin [Mass ratio] 1.0 {ratio} Normal [facility] Comment on above: Performed By: #### P THINT #### [facility] [address] [place] [address] Dr. Ember Teague ALP [Catalytic activity/Vol] 79 U/L Normal 46-116 [facility] Comment on above: Performed By: #### P THINT #### [facility] [address] [place] [address] Dr. Ember Teague ALT [Catalytic activity/Vol] 24 U/L Normal 14-59 [facility] Comment on above: Performed By: #### P THINT #### [facility] [address] [address] [address] Ember Teague Anion gap [Moles/Vol] 12.8 mmol/L Normal [facility] Comment on above: Performed By: #### P THINT #### [facility] [address] [address] [address] Ember Teague AST [Catalytic activity/Vol] 17 U/L Normal 15-37 [facility] Comment on above: Performed By: #### P THINT #### [facility] [address] [address] [address] Ember Teague Bilirubin [Mass/Vol] 0.5 mg/dL Normal 0.2-1.0 [facility] Comment on above: Performed By: #### P THINT #### [facility] [address] [address] [address] Ember Teague Calcium [Mass/Vol] 9.4 mg/dL Normal 8.5-10.1 [facility] Comment on above: Performed By: #### P THINT #### [facility] [address] [address] [address] Ember Teague Chloride [Moles/Vol] 101 mmol/L Normal 98-107 [facility] Comment on above: Performed By: #### P THINT #### [facility] [address] [address] [address] Ember Teague CO2 [Moles/Vol] 24.3 mmol/L Normal 21.0-32.0 [facility] Comment on above: Performed By: #### P THINT #### [facility] [address] [address] [address] Ember Teague Creatinine [Mass/Vol] 2.84 mg/dL Critically high 0.55-1.02 [facility] Comment on above: Performed By: #### P THINT #### [facility] [address] [address] [address] Ember Teague EGFR-AF NAURUAN 20 mL/min/1.73m2 Critically low >=60 [facility] Comment on above: Performed By: #### P THINT #### [facility] [address] [address] [address] Ember Teague EGFR-NON AF NAURUAN 16 mL/min/1.73m2 Critically low >=60 [facility] Comment on above: Performed By: #### P THINT #### [facility] [address] [address] [address] Ember Teague Globulin (S) [Mass/Vol] 3.7 g/dL Normal [facility] Comment on above: Performed By: #### P THINT #### [facility] [address] [address] [address] Ember Teague Glucose [Mass/Vol] 174 mg/dL Critically high 74-106 T [facility] Comment on above: Performed By: #### P THINT #### [facility] [address] [address] [address] Ember Teague Potassium [Moles/Vol] 5.1 mmol/L Normal 3.5-5.1 [facility] Comment on above: Performed By: #### P THINT #### [facility] [address] [address] [address] Ember Teague Protein [Mass/Vol] 7.4 g/dL Normal 6.4-8.2 [facility] Comment on above: Performed By: #### P THINT #### [facility] [address] [address] [address] Ember Teague Sodium [Moles/Vol] 133 mmol/L Critically low 136-145 [facility] Comment on above: Performed By: #### P THINT #### [facility] [address] [address] [address] Ember Teague Urea nitrogen [Mass/Vol] 68.0 mg/dL Critically high 7.0-18.0 [facility] Comment on above: Performed By: #### P THINT #### [facility] [address] [address] [address] Ember Teague Urea nitrogen/Creatinine [Mass ratio] 23.9 mg/mg Normal [facility] Comment on above: Performed By: #### P THINT #### [facility] [address] [place] [address] Dr. Ember Teague TROPONIN, HIGH SENSITIVITYon 09-11-2022 HSTROP 9.1 pg/mL Normal 4.0-51.3 [facility] Comment on above: Result Comment: CUT- OFF POINTS HAVE BEEN ESTABLISHED BASED ON THE FOURTH UNIVERSAL DEFINITIONS OF MYOCARDIAL INFARCTION. THE UPPER REFERENCE LIMIT (URL) OF TROPONIN, DEFINED THE 99TH PERCENTILE OF cTnI DISTRIBUTION IN A REFERENCE POPULATION, HAS BEEN CONFIRMED THE DECISION THRESHOLD FOR [place] DIAGNOSIS. Performed By: #### P THINT #### [facility] [address] [place] [address] Dr. Ember Teague UA RANDOM W/MICROSCOPICon BACTERIA NONE SEEN Normal NONE SEEN [facility] Comment on above: Performed By: #### C VDTBH #### [facility] [address] [place] [address] Dr. Ember Teague Bilirubin Ql (U) Negative Normal NEGATIVE [facility] Comment on above: Performed By: #### C VDTBH #### [facility] [address] [place] [address] Dr. Ember Teague CAST NONE SEEN Normal NONE SEEN [facility] Comment on above: Performed By: #### C VDTBH #### [facility] [address] [place] [address] Dr. Ember Teague Clarity (U) CLEAR Normal CLEAR [facility] Comment on above: Performed By: #### C VDTBH #### [facility] [address] [place] [address] Dr. Ember Teague Color (U) LT. YELLOW Normal YELLOW [facility] Comment on above: Performed By: #### C VDTBH #### [facility] [address] [place] [address] Dr. Ember Teague Crystals LM Nom (Urine sed) NONE SEEN Normal NONE SEEN [facility] Comment on above: Performed By: #### C VDTBH #### [facility] [address] [place] [address] Dr. Ember Teague Epithelial cells LM Ql (Urine sed) FEW Abnormal NONE SEEN /RARE The [facility] Comment on above: Performed By: #### C VDTBH #### [facility] [address] [address] [address] Ember Teague Glucose Ql (U) Negative Normal NEGATIVE The [facility] Comment on above: Performed By: #### C VDTBH #### [facility] [address] [place] [address] Dr. Ember Teague Hemoglobin Ql (U) Negative Normal NEGATIVE The [facility] Comment on above: Performed By: #### C VDTBH #### [facility] [address] [address] [address] Ember Teague Ketones Ql (U) Negative Normal NEGATIVE The [facility] Comment on above: Performed By: #### C VDTBH #### [facility] [address] [place] [address] Dr. Ember Teague LEUKOCYTES Negative Normal NEGATIVE The [facility] Comment on above: Performed By: #### C VDTBH #### [facility] [address] [place] [address] Dr. Ember Teague MUCOUS NONE SEEN Normal NONE SEEN [facility] Comment on above: Performed By: #### C VDTBH #### [facility] [address] [place] [address] Dr. Ember Teague Nitrite Ql (U) Negative Normal NEGATIVE The [facility] Comment on above: Performed By: #### C VDTBH #### [facility] [address] [place] [address] Dr. Ember Teague pH (U) 5.5 [pH] Normal 5-9 [facility] Comment on above: Performed By: #### C VDTBH #### [facility] [address] [place] [address] Dr. Ember Teague RBC NONE SEEN Abnormal 0-2 [facility] Comment on above: Performed By: #### C VDTBH #### [facility] [address] [place] [address] Dr. Ember Teague SPEC GRAVITY 1.010 Normal 1.005-<=1.[address] [facility] Comment on above: Performed By: #### C VDTBH #### [facility] [address] [place] [address] Dr. Ember Teague UA PROTEIN Negative Normal NEGATIVE/ TRACE The [facility] Comment on above: Performed By: #### C VDTBH #### [facility] [address] [place] [address] Dr. Ember Teague Urobilinogen Qn (U) 0.2 {Esau'U}/dL Normal 0.2 - 1. 0 The [facility] Comment on above: Performed By: #### C VDTBH #### [facility] [address] [place] [address] Dr. Ember Teague WBC NONE SEEN Normal NONE SEEN The [facility] Comment on above: Performed By: #### C VDTBH #### [facility] [address] [place] [address] Dr. Ember Teague CBC AUTO DIFFon 08-13-2022 BASO # 0.0 103/ul Normal 0.0-0.1 [facility] Comment on above: Performed By: #### C BC #### [facility] [address] [place] [address] Dr. Ember Teague Basophils/100 WBC (Bld) 0.3 % Normal 0.2-2.0 [facility] Comment on above: Performed By: #### C BC #### [facility] [address] [place] [address] Dr. Ember Teague EO # 0.2 103/ul Normal 0.0-0.7 [facility] Comment on above: Performed By: #### C BC #### [facility] [address] [place] [address] Dr. Ember Teague Eosinophils/100 WBC (Bld) 3.7 % Normal 0.9-7.0 [facility] Comment on above: Performed By: #### C BC #### [facility] [address] [place] [address] Dr. Ember Teague Erythrocyte distribution width (RBC) [Ratio] 15.0 % Normal 11.0-15.0 [facility] Comment on above: Performed By: #### C BC #### [facility] [address] [place] [address] Dr. Ember Teague Hematocrit (Bld) [Volume fraction] 27.9 % Critically low 36.0-48.0 [facility] Comment on above: Performed By: #### C BC #### [facility] [address] [place] [address] Dr. Ember Teague Hemoglobin (Bld) [Mass/Vol] 9.7 g/dL Critically low 12.0-16.0 [facility] Comment on above: Performed By: #### C BC #### [facility] [address] [place] [address] Dr. Ember Teague IG # 0.01 10e3/ul Normal 0.00-0.03 [facility] Comment on above: Performed By: #### C BC #### [facility] [address] [place] [address] Dr. Ember Teague IG % 0.2 % Normal 0.0-0.5 [facility] Comment on above: Performed By: #### C BC #### [facility] [address] [place] [address] Dr. Ember Teague LYMPH # 1.9 103/ul Normal 1.2-3.8 [facility] Comment on above: Performed By: #### C BC #### [facility] [address] [place] [address] Dr. Ember Teague Lymphocytes/100 WBC (Bld) 32.2 % Normal 20.5-60.0 [facility] Comment on above: Performed By: #### C BC #### [facility] [address] [place] [address] Dr. Ember Teague MANUAL DIFF REQ NO Normal [facility] Comment on above: Performed By: #### C BC #### [facility] [address] [place] [address] Dr. Ember Teague MCH (RBC) [Entitic mass] 31.4 pg Normal 26.7-34.0 [facility] Comment on above: Performed By: #### C BC #### [facility] [address] [place] [address] Dr. Ember Teague MCHC (RBC) [Mass/Vol] 34.8 g/dL Normal 29.9-35.2 [facility] Comment on above: Performed By: #### C BC #### [facility] [address] [place] [address] Dr. Ember Teague MCV (RBC) [Entitic vol] 90.3 fL Normal 81.0-99.0 [facility] Comment on above: Performed By: #### C BC #### [facility] [address] [place] [address] Dr. Ember Teague MONO # 0.6 103/ul Normal 0.3-0.8 [facility] Comment on above: Performed By: #### C BC #### [facility] [address] [place] [address] Dr. Ember Teague Monocytes/100 WBC (Bld) 9.8 % Normal 1.7-12.0 [facility] Comment on above: Performed By: #### C BC #### [facility] [address] [place] [address] Dr. Ember Teague NEUT # 3.2 103/ul Normal 1.4-6.5 [facility] Comment on above: Performed By: #### C BC #### [facility] [address] [place] [address] Dr. Ember Teague Neutrophils/100 WBC (Bld) 53.8 % Normal 43.0-75.0 [facility] Comment on above: Performed By: #### C BC #### [facility] [address] [place] [address] Dr. Ember Teague Platelet mean volume (Bld) [Entitic vol] 10.0 fL Normal 9.5-13.5 [facility] Comment on above: Performed By: #### C BC #### [facility] [address] [place] [address] Dr. Ember Teague PLT 194 103/ul Normal 150-450 [facility] Comment on above: Performed By: #### C BC #### [facility] [address] [place] [address] Dr. Ember Teague RBC 3.09 106/ul Critically low 4.20-5.[address] [facility] Comment on above: Performed By: #### C BC #### [facility] [address] [place] [address] Dr. Ember Teague WBC 6.0 103/ul Normal 4.0-11.0 [facility] Comment on above: Performed By: #### C BC #### [facility] [address] [place] [address] Dr. Ember Teague PTH INTACTon 06-26-2022 PTH, Intact 39 pg/mL Normal 15-65 [facility] Comment on above: Performed By: #### P THINT #### [facility] [address] [place] [address] Dr. Ember Teague CBC AUTO DIFFon 06-25-2022 BASO # 0.1 103/ul Normal 0.0-0.1 [facility] Comment on above: Performed By: #### C VDTBH #### [facility] [address] [place] [address] Dr. Ember Teague Basophils/100 WBC (Bld) 0.6 % Normal 0.2-2.0 [facility] Comment on above: Performed By: #### C VDTBH #### [facility] [address] [place] [address] Dr. Ember Teague EO # 0.2 103/ul Normal 0.0-0.7 [facility] Comment on above: Performed By: #### C VDTBH #### [facility] [address] [place] [address] Dr. Ember Teague Eosinophils/100 WBC (Bld) 3.0 % Normal 0.9-7.0 [facility] Comment on above: Performed By: #### C VDTBH #### [facility] [address] [place] [address] Dr. Ember Teague Erythrocyte distribution width (RBC) [Ratio] 14.2 % Normal 11.0-15.0 [facility] Comment on above: Performed By: #### C VDTBH #### [facility] [address] [address] [address] Ember Teague Hematocrit (Bld) [Volume fraction] 30.9 % Critically low 36.0-48.0 [facility] Comment on above: Performed By: #### C VDTBH #### [facility] [address] [place] [address] Dr. Ember Teague Hemoglobin (Bld) [Mass/Vol] 10.6 g/dL Critically low 12.0-16.0 [facility] Comment on above: Performed By: #### C VDTBH #### [facility] [address] [place] [address] Dr. Ember Teague IG # 0.04 10e3/ul Critically high 0.00-0.03 [facility] Comment on above: Performed By: #### C VDTBH #### [facility] [address] [place] [address] Dr. Ember Teague IG % 0.5 % Normal 0.0-0.5 [facility] Comment on above: Performed By: #### C VDTBH #### [facility] [address] [place] [address] Dr. Ember Teague LYMPH # 2.2 103/ul Normal 1.2-3.8 [facility] Comment on above: Performed By: #### C VDTBH #### [facility] [address] [place] [address] Dr. Ember Teague Lymphocytes/100 WBC (Bld) 27.0 % Normal 20.5-60.0 [facility] Comment on above: Performed By: #### C VDTBH #### [facility] [address] [place] [address] Dr. Ember Teague MANUAL DIFF REQ NO Normal The [facility] Comment on above: Performed By: #### C VDTBH #### [facility] [address] [place] [address] Dr. Ember Teague MCH (RBC) [Entitic mass] 31.2 pg Normal 26.7-34.0 [facility] Comment on above: Performed By: #### C VDTBH #### [facility] [address] [place] [address] Dr. Ember Teague MCHC (RBC) [Mass/Vol] 34.3 g/dL Normal 29.9-35.2 [facility] Comment on above: Performed By: #### C VDTBH #### [facility] [address] [place] [address] Dr. Ember Teague MCV (RBC) [Entitic vol] 90.9 fL Normal 81.0-99.0 [facility] Comment on above: Performed By: #### C VDTBH #### [facility] [address] [place] [address] Dr. Ember Teague MONO # 0.7 103/ul Normal 0.3-0.8 [facility] Comment on above: Performed By: #### C VDTBH #### [facility] [address] [place] [address] Dr. Ember Teague Monocytes/100 WBC (Bld) 9.2 % Normal 1.7-12.0 [facility] Comment on above: Performed By: #### C VDTBH #### [facility] [address] [place] [address] Dr. Ember Teague NEUT # 4.8 103/ul Normal 1.4-6.5 [facility] Comment on above: Performed By: #### C VDTBH #### [facility] [address] [place] [address] Dr. Ember Teague Neutrophils/100 WBC (Bld) 59.7 % Normal 43.0-75.0 [facility] Comment on above: Performed By: #### C VDTBH #### [facility] [address] [place] [address] Dr. Ember Teague Platelet mean volume (Bld) [Entitic vol] 9.3 fL Critically low 9.5-13.5 [facility] Comment on above: Performed By: #### C VDTBH #### [facility] [address] [place] [address] Dr. Ember Teague PLT 227 103/ul Normal 150-450 [facility] Comment on above: Performed By: #### C VDTBH #### [facility] [address] [place], [place] [address] Dr. Ember Teague RBC 3.40 106/ul Critically low 4.20-5.[address] [facility] Comment on above: Performed By: #### C VDTBH #### [facility] [address] [address] [address] Ember Teague WBC 8.0 103/ul Normal 4.0-11.0 [facility] Comment on above: Performed By: #### C VDTBH #### [facility] [address] [address] [address] Ember Teague MRI LSPINE WO CONon [...] Date: 2022-06-25 08:45 Normal [facility] RENAL FUNCTION PANELon 06-25 Albumin [Mass/Vol] 3.9 g/dL Normal 3.4-5.0 [facility] Comment on above: Performed By: #### P THINT #### [facility] [address] [address] [address] Ember Teague Calcium [Mass/Vol] 9.5 mg/dL Normal 8.5-10.1 [facility] Comment on above: Performed By: #### P THINT #### [facility] [address] [address] [address] Ember Teague Chloride [Moles/Vol] 102 mmol/L Normal 98-107 [facility] Comment on above: Performed By: #### P THINT #### [facility] [address] [address] [address] Ember Teague CO2 [Moles/Vol] 23.8 mmol/L Normal 21.0-32.0 [facility] Comment on above: Performed By: #### P THINT #### [facility] [address] [address] [address] Ember Teague Creatinine [Mass/Vol] 1.75 mg/dL Critically high 0.55-1.02 [facility] Comment on above: Performed By: #### P THINT #### [facility] [address] [address] [address] Ember Teague EGFR-AF NAURUAN 34 mL/min/1.73m2 Critically low >=60 [facility] Comment on above: Performed By: #### P THINT #### [facility] [address] [address] [address] Ember Teague EGFR-NON AF NAURUAN 28 mL/min/1.73m2 Critically low >=60 [facility] Comment on above: Performed By: #### P THINT #### [facility] [address] [address] [address] Ember Teague Glucose [Mass/Vol] 199 mg/dL Critically high 74-106 T [facility] Comment on above: Performed By: #### P THINT #### [facility] [address] [place] [address] Dr. Ember Teague Phosphate [Mass/Vol] 4.3 mg/dL Normal 2.6-4.7 [facility] Comment on above: Performed By: #### P THINT #### [facility] [address] [place] [address] Dr. Ember Teague Potassium [Moles/Vol] 4.9 mmol/L Normal 3.5-5.1 [facility] Comment on above: Performed By: #### P THINT #### [facility] [address] [place] [address] Dr. Ember Teague Sodium [Moles/Vol] 135 mmol/L Critically low 136-145 Th [facility] Comment on above: Performed By: #### P THINT #### [facility] [address] [place] [address] Dr. Ember Teague Urea nitrogen [Mass/Vol] 34.0 mg/dL Critically high 7.0-18.0 [facility] Comment on above: Performed By: #### P THINT #### [facility] [address] [place] [address] Dr. Ember Teague VITAMIN D 25 OHon 06-25-2022 VIT D 25-OH 40.6 ng/mL Normal [facility] Comment on above: Performed By: #### P THINT #### [facility] [address] [place] [address] Dr. Ember Teague VIT D RANGES SEE BELOW Normal [facility] Comment on above: Result Comment: <20 ng/mL Vit D deficient 20 - <30 ng/mL Vit D insufficient 30 - 100 ng/mL Vit D sufficient >100 ng/mL Potential Toxicity Performed By: #### P THINT #### [facility] [address] [place] [address] Dr. Ember Teague [facility]07 SARS-CoV-2 (COVID-19) RNA ALEXX+probe Ql (Unsp spec) Not detected Normal NOT DETECTED [facility] Comment on above: Result Comment: This test is not yet approved or cleared by the [place] FDA. When there are no FDA-approved or cleared tests available, and other criteria are met, FDA can make tests available under an emergency access mechanism called an Emergency Use Authorization (EUA). The EUA for this test is supported by the [place] of Health and Human Service's (HHS's) declaration [...] consistent with SARS-CoV-2. Performed By: #### C [facility] #### [facility] [address] [place] [address] LSPINE WO CONon [...] YANET HUERTA Date: 2022-06-01 18:02 Normal [facility] XR LSPINE MIN 4 VIEWSon [...] Date: 2022-05-21 15:25 Normal [facility] PTH INTACTon 05-03-2022 PTH, Intact 60 pg/mL Normal 15-65 [facility] Comment on above: Performed By: #### C VDTB #### [facility] [address] [address] [address] Ember Teague VIT D 25-OH LABCORPon 2021 Vitamin D, 25-Hydroxy 26.1 ng/mL Critically low 30.0-100.0 [facility] Comment on above: Result Comment: Sara min D deficiency has been defined by the [place] of Medicine and an Endocrine Society practice guideline as a level of serum 25-OH vitamin D less than 20 ng/mL (1,2). The Endocrine Society went on to further define vitamin D insufficiency as a level between 21 and 29 ng/mL (2). 1. IOM ([place] of Medicine). 2010. Dietary reference intakes for calcium and D. [place]: The National Academies Press. 2. Sherice HUNT, Wendy WILSON, Huan ZHONG, et al. Evaluation, treatment, and prevention of vitamin D deficiency: an Endocrine Society clinical practice guideline. JCEM. 2010; 96(7):1911-30. Performed By: #### R ENAL #### [facility] [address] [place] [address] Dr. Ember Teague FERRITINon 05-02-2022 Ferritin [Mass/Vol] 590.0 ng/mL Critically high 8.0-252.0 [facility] Comment on above: Performed By: #### R ENAL #### [facility] [address] [place] [address] Dr. Ember Teague HEMOGRAM AND PLATELon 2021 Hematocrit (Bld) [Volume fraction] 28.4 % Critically low 36.0-48.0 [facility] Comment on above: Performed By: #### C VDTBH #### [facility] [address] [place] [address] Dr. Ember Teague Hemoglobin (Bld) [Mass/Vol] 9.6 g/dL Critically low 12.0-16.0 [facility] Comment on above: Performed By: #### C VDTBH #### [facility] [address] [place] [address] Dr. Ember Teague MCH (RBC) [Entitic mass] 31.0 pg Normal 26.7-34.0 [facility] Comment on above: Performed By: #### C VDTBH #### [facility] [address] [place] [address] Dr. Ember Teague MCHC (RBC) [Mass/Vol] 33.8 g/dL Normal 29.9-35.2 [facility] Comment on above: Performed By: #### C VDTBH #### [facility] [address] [place] [address] Dr. Ember Teague MCV (RBC) [Entitic vol] 91.6 fL Normal 81.0-99.0 [facility] Comment on above: Performed By: #### C VDTBH #### [facility] [address] [place] [address] Dr. Ember Teague PLT 189 103/ul Normal 150-450 [facility] Comment on above: Performed By: #### C VDTBH #### [facility] [address] [place] [address] Dr. Ember Teague RBC 3.10 106/ul Critically low 4.20-5.40 [facility] Comment on above: Performed By: #### C VDTBH #### [facility] [address] [place] [address] Dr. Ember Teague WBC 6.2 103/ul Normal 4.0-11.0 [facility] Comment on above: Performed By: #### C VDTBH #### [facility] [address] [place] [address] Dr. Ember Teague IRON AND TIBCon 05-02-2022 % SATURATION 34.3 % Normal [facility] Comment on above: Performed By: #### R ENAL #### [facility] [address] [place] [address] Dr. Ember Teague Iron [Mass/Vol] 69.0 ug/dL Normal 50.0-170.[address] [facility] Comment on above: Performed By: #### R ENAL #### [facility] [address] [place] [address] Dr. Ember Teague TIBC DIRECT 201.0 ug/dL Critically low 250.0-450.0 [facility] Comment on above: Performed By: #### R ENAL #### [facility] [address] [place] [address] Dr. Ember Teague MAGNESIUMon 05-02-2022 Magnesium [Mass/Vol] 1.7 mg/dL Critically low 1.8-2.4 [facility] Comment on above: Performed By: #### C VDTBH #### [facility] [address] [place] [address] Dr. Ember Teague RENAL FUNCTION PANELon 05-02 Albumin [Mass/Vol] 3.6 g/dL Normal 3.4-5.0 [facility] Comment on above: Performed By: #### C VDTBH #### [facility] [address] [address] [address] Ember Teague Calcium [Mass/Vol] 9.2 mg/dL Normal 8.5-10.1 [facility] Comment on above: Performed By: #### C VDTBH #### [facility] [address] [address] [address] Ember Teague Chloride [Moles/Vol] 107 mmol/L Normal 98-107 [facility] Comment on above: Performed By: #### C VDTBH #### [facility] [address] [place] [address] Dr. Ember Teague CO2 [Moles/Vol] 21.2 mmol/L Normal 21.0-32.0 [facility] Comment on above: Performed By: #### C VDTBH #### [facility] [address] [place] [address] Dr. Ember Teague Creatinine [Mass/Vol] 1.75 mg/dL Critically high 0.55-1.02 [facility] Comment on above: Performed By: #### C VDTBH #### [facility] [address] [place] [address] Dr. Ember Teague EGFR-AF NAURUAN 34 mL/min/1.73m2 Critically low >=60 [facility] Comment on above: Performed By: #### C VDTBH #### [facility] [address] [place] [address] Dr. Ember Teague EGFR-NON AF NAURUAN 28 mL/min/1.73m2 Critically low >=60 [facility] Comment on above: Performed By: #### C VDTBH #### [facility] [address] [place] [address] Dr. Ember Teague Glucose [Mass/Vol] 193 mg/dL Critically high 74-106 [facility] Comment on above: Performed By: #### C VDTBH #### [facility] [address] [place] [address] Dr. Ember Teague Phosphate [Mass/Vol] 4.2 mg/dL Normal 2.6-4.7 [facility] Comment on above: Performed By: #### C VDTBH #### [facility] [address] [place] [address] Dr. Ember Teague Potassium [Moles/Vol] 5.1 mmol/L Normal 3.5-5.1 [facility] Comment on above: Performed By: #### C VDTBH #### [facility] [address] [place] [address] Dr. Ember Teague Sodium [Moles/Vol] 139 mmol/L Normal 136-145 [facility] Comment on above: Performed By: #### C VDTBH #### [facility] [address] [place] [address] Dr. Ember Teague Urea nitrogen [Mass/Vol] 34.0 mg/dL Critically high 7.0-18.0 [facility] Comment on above: Performed By: #### C VDTBH #### [facility] [address] [place] [address] Dr. Ember Teague UA RANDOM W/MICROSCOPICon BACTERIA SMALL Abnormal NONE SEEN [facility] Comment on above: Performed By: #### C VDTBH #### [facility] [address] [place] [address] Dr. Ember Teague Bilirubin Ql (U) Negative Normal NEGATIVE [facility] Comment on above: Performed By: #### C VDTBH #### [facility] [address] [place] [address] Dr. Ember Teague CAST NONE SEEN Normal NONE SEEN [facility] Comment on above: Performed By: #### C VDTBH #### [facility] [address] [place] [address] Dr. Ember Teague Clarity (U) CLEAR Normal CLEAR [facility] Comment on above: Performed By: #### C VDTBH #### [facility] [address] [place] [address] Dr. Ember Teague Color (U) LT. YELLOW Normal YELLOW [facility] Comment on above: Performed By: #### C VDTBH #### [facility] [address] [place] [address] Dr. Ember Teague Crystals LM Nom (Urine sed) NONE SEEN Normal NONE SEEN [facility] Comment on above: Performed By: #### C VDTBH #### [facility] [address] [place] [address] Dr. Ember Teague Epithelial cells LM Ql (Urine sed) MODERATE Abnormal NONE SEEN /RARE [facility] Comment on above: Performed By: #### C VDTBH #### [facility] [address] [place] [address] Dr. Ember Teague Glucose Ql (U) Negative Normal NEGATIVE The [facility] Comment on above: Performed By: #### C VDTBH #### [facility] [address] [place] [address] Dr. Ember Teague Hemoglobin Ql (U) Negative Normal NEGATIVE [facility] Comment on above: Performed By: #### C VDTBH #### [facility] [address] [place] [address] Dr. Ember Teague Ketones Ql (U) Negative Normal NEGATIVE [facility] Comment on above: Performed By: #### C VDTBH #### [facility] [address] [place] [address] Dr. Ember Teague LEUKOCYTES TRACE Abnormal NEGATIVE [facility] Comment on above: Performed By: #### C VDTBH #### [facility] [address] [place] [address] Dr. Ember Teague MUCOUS NONE SEEN Normal NONE SEEN [facility] Comment on above: Performed By: #### C VDTBH #### [facility] [address] [place] [address] Dr. Ember Teague Nitrite Ql (U) Negative Normal NEGATIVE [facility] Comment on above: Performed By: #### C VDTBH #### [facility] [address] [place] [address] Dr. Ember Teague pH (U) 5.0 [pH] Normal 5-9 [facility] Comment on above: Performed By: #### C VDTBH #### [facility] [address] [place] [address] Dr. Ember Teague RBC NONE SEEN Abnormal 0-2 [facility] Comment on above: Performed By: #### C VDTBH #### [facility] [address] [place] [address] Dr. Ember Teague SPEC GRAVITY 1.015 Normal 1.005-<=1.[address] [facility] Comment on above: Performed By: #### C VDTBH #### [facility] [address] [place] [address] Dr. Ember Teague UA PROTEIN TRACE Normal NEGATIVE/ TRACE [facility] Comment on above: Performed By: #### C VDTBH #### [facility] [address] [address] [address] Ember Teague Urobilinogen Qn (U) 0.2 {Esau'U}/dL Normal 0.2 - 1. 0 [facility] Comment on above: Performed By: #### C VDTBH #### [facility] [address] [place] [address] Dr. Ember Teague WBC 0-2 Abnormal NONE SEEN [facility] Comment on above: Performed By: #### C VDTBH #### [facility] [address] [place] [address] Dr. Ember Teague URIC ACID SERUMon 05-02-2022 Urate [Mass/Vol] 4.4 mg/dL Normal 2.6-6.0 [facility] Comment on above: Performed By: #### C BC #### [facility] [address] [place] [address] Dr. Ember Teague URINE T PROTEIN CREAT RATIOo n 05-02-2022 Protein (U) [Mass/Vol] 33.7 mg/dL Critically high <=12.0 [facility] Comment on above: Performed By: #### C VDTBH #### [facility] [address] [place] [address] Dr. Ember Teague UR PROT CREAT RAT 0.69 Normal [facility] Comment on above: Performed By: #### C VDTBH #### [facility] [address] [place] [address] Dr. Ember Teague URINE CREAT 48.93 mg/dL Normal 20.00-300.00 [facility] Comment on above: Performed By: #### C VDTB #### [facility] [address] [address] [address] Ember Teague Social History Date Type Detail Facility Start: 03-19-2023 Alcohol intake Ex-drinker (finding) [facility] Start: 09-20-2022 Tobacco smoking status NHIS Ex-smoker [facility] Start: 09-20-2022 Tobacco use and exposure Smokeless tobacco non-user [facility] Start: 12-28-2020 End: 03-19-2023 Sex Assigned At [facility] Other Start: 12-28-2020 End: 03-19-2023 History of Social function [facility] Start: 1945 [facility] if ever smoked [facility] End: 10-07-1969 History of tobacco use Current smoker [facility] End: 10-07-1969 History of tobacco use Cigarette Smoker [facility] Do you belong to any clubs or organizations such as scientology groups, unions, fraternal or athletic groups, or school groups? No [facility] Are you now , , , , never or living with a partner? [facility] How hard is it for y ou to pay for the very basics like food, housing, medical care, and heating Not hard at all [facility] Do you feel stress - tense, restless, nervous, or anxious, or unable to sleep at night because your mind is troubled all the time - these days [OSQ] Not at all [facility] Vital Signs Date Time Vital Sign Value Performing Clinician Facility 11-18-2023 10:00-0500 Body height 168.91 cm Ron Doreen Other [facility] 11-18-2023 10:00-0500 Body mass index (BMI) [Ratio] 29.85 kg/m2 Ron Doreen Other [facility] 11-18-2023 10:00-0500 Body temperature 97.3 [degF] Ron Doreen Other [facility] Other 11-18-2023 10:00-0500 Body weight 85.19 kg Ron Doreen Other [facility] Other 11-18-2023 10:00-0500 Diastolic blood pressure 79 mm[Hg] Ron Doreen Other [facility] Other 11-18-2023 10:00-0500 Respiratory rate 18 /min Ron Doreen Other [facility] Other 11-18-2023 10:00-0500 SaO2% (BldA) [Mass fraction] 98 % Ron Doreen Other [facility] Other 11-18-2023 10:00-0500 Systolic blood pressure 149 mm[Hg] Ron Doreen Other [facility] Other 11-04-2023 11:00-0500 Body height 168.91 cm Ron Doreen Other [facility] Other 11-04-2023 11:00-0500 Body mass index (BMI) [Ratio] 30.17 kg/m2 Ron Doreen Other [facility] 11-04-2023 11:00-0500 Body temperature 97.6 [degF] Ron Doreen Other [facility] Other 11-04-2023 11:00-0500 Body weight 86.09 kg Ron Doreen Other [facility] Other 11-04-2023 11:00-0500 Diastolic blood pressure 76 mm[Hg] Ron Doreen Other [facility] Other 11-04-2023 11:00-0500 Respiratory rate 18 /min Ron Doreen Other [facility] Other 11-04-2023 11:00-0500 SaO2% (BldA) [Mass fraction] 98 % Ron Doreen Other [facility] 11-04-2023 11:00-0500 Systolic blood pressure 153 mm[Hg] Ron Doreen Other [facility] Other 10-15-2023 13:00-0500 Body height 168.91 cm Ron Doreen Other [facility] Other 10-15-2023 13:00-0500 Body mass index (BMI) [Ratio] 29.82 kg/m2 Ron Doreen Other [facility] Other 10-15-2023 13:00-0500 Body temperature 97.5 [degF] Ron Doreen Other [facility] Other 10-15-2023 13:00-0500 Body weight 85.1 kg Rno Doreen Other [facility] Other 10-15-2023 13:00-0500 Diastolic blood pressure 68 mm[Hg] Ron Doreen Other [facility] Other 10-15-2023 13:00-0500 Respiratory rate 18 /min Ron Doreen Other [facility] Other 10-15-2023 13:00-0500 SaO2% (BldA) [Mass fraction] 98 % Ron Doreen Other [facility] Other 10-15-2023 13:00-0500 Systolic blood pressure 113 mm[Hg] Ron Doreen Other [facility] Other 08-27-2023 09:40-0500 Body height 168.91 cm [employer] Other [facility] Other 08-27-2023 09:40-0500 Body mass index (BMI) [Ratio] 30.2 kg/m2 [employer] Other [facility] Other 08-27-2023 09:40-0500 Body temperature 96.7 [degF] [employer] Other [facility] Other 08-27-2023 09:40-0500 Body weight 86.18 kg Aziz Bakhous Other [facility] Other 08-27-2023 09:40-0500 Diastolic blood pressure 72 mm[Hg] Aziz Bakhous Other [facility] Other 08-27-2023 09:40-0500 Respiratory rate 18 /min Aziz Bakhous Other [facility] Other 08-27-2023 09:40-0500 SaO2% (BldA) [Mass fraction] 98 % Aziz Bakhous Other [facility] Other 08-27-2023 09:40-0500 Systolic blood pressure 153 mm[Hg] Mary Anne Ackerman Other [facility] Other 08-15-2023 10:20-0500 Body height 168.91 cm Ron Doreen Other [facility] Other 08-15-2023 10:20-0500 Body mass index (BMI) [Ratio] 30.2 kg/m2 Ron Doreen Other [facility] Other 08-15-2023 10:20-0500 Body temperature 97.1 [degF] Ron Doreen Other [facility] Other 08-15-2023 10:20-0500 Body weight 86.18 kg Ron Doreen Other [facility] Other 08-15-2023 10:20-0500 Diastolic blood pressure 79 mm[Hg] Ron Doreen Other [facility] Other 08-15-2023 10:20-0500 Respiratory rate 18 /min Ron Doreen Other [facility] Other 08-15-2023 10:20-0500 SaO2% (BldA) [Mass fraction] 98 % Ron Doreen Other [facility] Other 08-15-2023 10:20-0500 Systolic blood pressure 164 mm[Hg] Ron Doreen Other [facility] Other 08-13-2023 15:40-0500 Body height 168.91 cm Ron Doreen Other [facility] Other 08-13-2023 15:40-0500 Body mass index (BMI) [Ratio] 30.24 kg/m2 Ron Doreen Other [facility] Other 08-13-2023 15:40-0500 Body temperature 97.2 [degF] Ron Doreen Other [facility] Other 08-13-2023 15:40-0500 Body weight 86.27 kg Ron Doreen Other [facility] Other 08-13-2023 15:40-0500 Diastolic blood pressure 79 mm[Hg] Ron Doreen Other [facility] Other 08-13-2023 15:40-0500 Respiratory rate 18 /min Ron Doreen Other [facility] Other 08-13-2023 15:40-0500 SaO2% (BldA) [Mass fraction] 98 % Ron Doreen Other [facility] Other 08-13-2023 15:40-0500 Systolic blood pressure 186 mm[Hg] Ron Doreen Other [facility] Other 08-01-2023 13:00-0400 Body height 168.91 cm Ron Doreen Other [facility] Other 08-01-2023 13:00-0400 Body mass index (BMI) [Ratio] 30.55 kg/m2 Ron Doreen Other [facility] Other 08-01-2023 13:00-0400 Body temperature 97.8 [degF] Ron Doreen Other [facility] Other 08-01-2023 13:00-0400 Body weight 87.18 kg Ron Doreen Other [facility] Other 08-01-2023 13:00-0400 Diastolic blood pressure 72 mm[Hg] Ron Doreen Other [facility] Other 08-01-2023 13:00-0400 Respiratory rate 18 /min Ron Doreen Other [facility] Other 08-01-2023 13:00-0400 SaO2% (BldA) [Mass fraction] 98 % Ron Doreen Other [facility] Other 08-01-2023 13:00-0400 Systolic blood pressure 160 mm[Hg] Ron Doreen Other [facility] Other 06-24-2023 11:40-0400 Body height 168.91 cm Ron Doreen Other [facility] Other 06-24-2023 11:40-0400 Body mass index (BMI) [Ratio] 29.89 kg/m2 Ron Doreen Other [facility] Other 06-24-2023 11:40-0400 Body temperature 97.3 [degF] Ron Doreen Other [facility] Other 06-24-2023 11:40-0400 Body weight 85.28 kg Ron Doreen Other [facility] Other 06-24-2023 11:40-0400 Diastolic blood pressure 75 mm[Hg] Ron Doreen Other [facility] Other 06-24-2023 11:40-0400 Respiratory rate 18 /min Ron Doreen Other [facility] Other 06-24-2023 11:40-0400 SaO2% (BldA) [Mass fraction] 99 % Ron Doreen Other [facility] Other 06-24-2023 11:40-0400 Systolic blood pressure 129 mm[Hg] Ron Doreen Other [facility] Other 06-06-2023 15:20-0400 Body height 168.91 cm Ron Doreen Other [facility] Other 06-06-2023 15:20-0400 Body mass index (BMI) [Ratio] 29.92 kg/m2 Ron Doreen Other [facility] Other 06-06-2023 15:20-0400 Body temperature 96.5 [degF] Ron Doreen Other [facility] Other 06-06-2023 15:20-0400 Body weight 85.37 kg Ron Doreen Other [facility] Other 06-06-2023 15:20-0400 Diastolic blood pressure 49 mm[Hg] Ron Doreen Other [facility] Other 06-06-2023 15:20-0400 Respiratory rate 18 /min Ron Doreen Other [facility] Other 06-06-2023 15:20-0400 SaO2% (BldA) [Mass fraction] 99 % Ron Doreen Other [facility] Other 06-06-2023 15:20-0400 Systolic blood pressure 128 mm[Hg] Ron Doreen Other [facility] Other 04-30-2023 11:40-0400 Body height 168.91 cm Ron Doreen Other [facility] Other 04-30-2023 11:40-0400 Body mass index (BMI) [Ratio] 30.52 kg/m2 Ron Doreen Other [facility] Other 04-30-2023 11:40-0400 Body temperature 96.9 [degF] Ron Doreen Other [facility] Other 04-30-2023 11:40-0400 Body weight 87.09 kg Ron Doreen Other [facility] Other 04-30-2023 11:40-0400 Diastolic blood pressure 80 mm[Hg] Ron Doreen Other [facility] Other 04-30-2023 11:40-0400 Respiratory rate 18 /min Ron Doreen Other [facility] Other 04-30-2023 11:40-0400 SaO2% (BldA) [Mass fraction] 98 % Ron Doreen Other [facility] Other 04-30-2023 11:40-0400 Systolic blood pressure 150 mm[Hg] Ron Doreen Other [facility] Other 04-06-2023 09:00-0400 Body height 168.91 cm Ron Doreen Other [facility] Other 04-06-2023 09:00-0400 Body mass index (BMI) [Ratio] 30.36 kg/m2 Ron Doreen Other [facility] Other 04-06-2023 09:00-0400 Body weight 86.64 kg Ron Doreen Other [facility] Other 04-06-2023 09:00-0400 Diastolic blood pressure 54 mm[Hg] Ron Doreen Other [facility] Other 04-06-2023 09:00-0400 Respiratory rate 18 /min Ron Doreen Other [facility] Other 04-06-2023 09:00-0400 SaO2% (BldA) [Mass fraction] 98 % Ron Doreen Other [facility] Other 04-06-2023 09:00-0400 Systolic blood pressure 144 mm[Hg] Ron Doreen Other [facility] Other 04-02-2023 14:40-0400 Body height 168.91 cm Ron Doreen Other [facility] Other 04-02-2023 14:40-0400 Body mass index (BMI) [Ratio] 30.55 kg/m2 Ron Doreen Other [facility] Other 04-02-2023 14:40-0400 Body temperature 97 [degF] Ron Doreen Other [facility] Other 04-02-2023 14:40-0400 Body weight 87.18 kg Ron Doreen Other [facility] Other 04-02-2023 14:40-0400 Diastolic blood pressure 76 mm[Hg] Ron Doreen Other [facility] Other 04-02-2023 14:40-0400 Respiratory rate 18 /min Ron Doreen Other [facility] Other 04-02-2023 14:40-0400 SaO2% (BldA) [Mass fraction] 98 % Ron Doreen Other [facility] Other 04-02-2023 14:40-0400 Systolic blood pressure 183 mm[Hg] Ron Doreen Other [facility] Other 03-07-2023 09:20-0400 Body height 168.91 cm Ron Doreen Other [facility] Other 03-07-2023 09:20-0400 Body mass index (BMI) [Ratio] 30.52 kg/m2 Ron Doreen Other [facility] Other 03-07-2023 09:20-0400 Body temperature 97.1 [degF] Ron Doreen Other [facility] Other 03-07-2023 09:20-0400 Body weight 87.09 kg Ron Doreen Other [facility] Other 03-07-2023 09:20-0400 Diastolic blood pressure 72 mm[Hg] Ron Doreen Other [facility] Other 03-07-2023 09:20-0400 Respiratory rate 18 /min Ron Doreen Other [facility] Other 03-07-2023 09:20-0400 SaO2% (BldA) [Mass fraction] 97 % Ron Doreen Other [facility] Other 03-07-2023 09:20-0400 Systolic blood pressure 130 mm[Hg] Ron Doreen Other [facility] Other 12-20-2022 13:20-0400 Body height 168.91 cm Ron Doreen Other [facility] Other 12-20-2022 13:20-0400 Body mass index (BMI) [Ratio] 30.68 kg/m2 Ron Droeen Other [facility] Other 12-20-2022 13:20-0400 Body temperature 97.1 [degF] Ron Doreen Other [facility] Other 12-20-2022 13:20-0400 Body weight 87.54 kg Ron Doreen Other [facility] Other 12-20-2022 13:20-0400 Diastolic blood pressure 72 mm[Hg] Ron Doreen Other [facility] Other 12-20-2022 13:20-0400 Respiratory rate 18 /min Ron Doreen Other [facility] Other 12-20-2022 13:20-0400 SaO2% (BldA) [Mass fraction] 99 % Ron Doeren Other [facility] Other 12-20-2022 13:20-0400 Systolic blood pressure 139 mm[Hg] Ron Doreen Other [facility] Other 11-05-2022 14:00-0500 Body height 168.91 cm Ron Doreen Other [facility] Other 11-05-2022 14:00-0500 Body mass index (BMI) [Ratio] 30.59 kg/m2 Ron Doreen Other [facility] Other 11-05-2022 14:00-0500 Body temperature 96.8 [degF] Ron Doreen Other [facility] Other 11-05-2022 14:00-0500 Body weight 87.27 kg Ron Doreen Other [facility] Other 11-05-2022 14:00-0500 Diastolic blood pressure 72 mm[Hg] Ron Doreen Other [facility] Other 11-05-2022 14:00-0500 Respiratory rate 18 /min Ron Doreen Other [facility] Other 11-05-2022 14:00-0500 SaO2% (BldA) [Mass fraction] 98 % Ron Doreen Other [facility] Other 11-05-2022 14:00-0500 Systolic blood pressure 157 mm[Hg] Rno Doreen Other [facility] Other 09-27-2022 16:00-0500 Body height 168.91 cm Jana Monson Other [facility] Other 09-27-2022 16:00-0500 Body mass index (BMI) [Ratio] 30.55 kg/m2 Jana Monson Other [facility] Other 09-27-2022 16:00-0500 Body temperature 96.8 [degF] Jana De La Rosamiller Other [facility] Other 09-27-2022 16:00-0500 Body weight 87.18 kg Jana Monson Other [facility] Other 09-27-2022 16:00-0500 Diastolic blood pressure 73 mm[Hg] Jana De La Rosamiller Other [facility] Other 09-27-2022 16:00-0500 Respiratory rate 18 /min Jana De La Rosamiller Other [facility] Other 09-27-2022 16:00-0500 SaO2% (BldA) [Mass fraction] 98 % Jana Monson Other [facility] Other 09-27-2022 16:00-0500 Systolic blood pressure 159 mm[Hg] Jana De La Rosamiller Other [facility] Other 08-22-2022 12:00-0500 Body height 168.91 cm Ron Doreen Other [facility] Other 08-22-2022 12:00-0500 Body mass index (BMI) [Ratio] 30.65 kg/m2 Ron Doreen Other [facility] Other 08-22-2022 12:00-0500 Body temperature 96.9 [degF] Ron Doreen Other [facility] Other 08-22-2022 12:00-0500 Body weight 87.45 kg Ron Doreen Other [facility] Other 08-22-2022 12:00-0500 Diastolic blood pressure 75 mm[Hg] Ron Doreen Other [facility] Other 08-22-2022 12:00-0500 Respiratory rate 18 /min Ron Doreen Other [facility] Other 08-22-2022 12:00-0500 SaO2% (BldA) [Mass fraction] 96 % Ron Doreen Other [facility] Other 08-22-2022 12:00-0500 Systolic blood pressure 121 mm[Hg] Ron Doreen Other [facility] Other 05-08-2022 10:20-0400 Body height 168.91 cm Ron Doreen Other [facility] Other 05-08-2022 10:20-0400 Body mass index (BMI) [Ratio] 31.54 kg/m2 Ron Doreen Other [facility] Other 05-08-2022 10:20-0400 Body temperature 97.6 [degF] Ron Doreen Other [facility] Other 05-08-2022 10:20-0400 Body weight 89.99 kg Ron Doreen Other [facility] Other 05-08-2022 10:20-0400 Diastolic blood pressure 68 mm[Hg] Ron Doreen Other [facility] Other 05-08-2022 10:20-0400 Respiratory rate 18 /min Ron Doreen Other [facility] Other 05-08-2022 10:20-0400 SaO2% (BldA) [Mass fraction] 98 % Ron Doreen Other [facility] Other 05-08-2022 10:20-0400 Systolic blood pressure 131 mm[Hg] Ron Doreen Other [facility] Other 01-18-2022 10:20-0400 Body height 168.91 cm Ron Doreen Other [facility] Other 01-18-2022 10:20-0400 Body mass index (BMI) [Ratio] 31 kg/m2 Ron Doreen Other [facility] Other 01-18-2022 10:20-0400 Body temperature 96.4 [degF] Ron Doreen Other [facility] Other 01-18-2022 10:20-0400 Body weight 88.45 kg Ron Doreen Other [facility] Other 01-18-2022 10:20-0400 Diastolic blood pressure 74 mm[Hg] Ron Doreen Other [facility] Other 01-18-2022 10:20-0400 Respiratory rate 18 /min Ron Doreen Other [facility] Other 01-18-2022 10:20-0400 SaO2% (BldA) [Mass fraction] 97 % Ron Doreen Other [facility] Other 01-18-2022 10:20-0400 Systolic blood pressure 170 mm[Hg] Ron Doreen Other [facility] Other Clinical Notes 01-18-2022 to 02-10-2024 Note Date & Type Note Facility 02-10-[address] [facility] Cardiology Clinic Note Chief Complaint: Patient here to re-establish care. She was recently admitted to [facility] for hypertension. Had CABG since her [...] longstanding diabetic. PAST MEDICAL HISTORY: Diabetes mellitus ([facility]) Hypertensive urgency Arthritis Dyspnea Chest pain Unstable angina ([facility]) Obesity (BMI 30-39.9) H/O four vessel coronary artery bypass graft Paroxysmal atrial fibrillation ([facility]) Atherosclerosis of [place] coronary artery of [place] heart without angina pectoris Obesity (BMI 30-39.9) [...] office She is to follow-up with her agricultural specialist given her chronic kidney disease Return to clinic in 3 months or sooner should problems arise Carlie Catherine MD (more content not included)... [facility] 11-18-2023 Evaluation note Encounter Date Diagnosis Assessment [...] potassium improved with dietary restriction and Lasix. [facility] Other 01-29-2024 Evaluation note* Encounter Date Diagnosis Assessment Notes Treatment Notes Treatment Clinical Notes Oct, Anemia of renal disease (ICD-10 - D63.1) Oct, CKD (chronic kidney disease) stage 4, GFR 15-29 ml/min (ICD-10 - N18.4) [facility] Other 01-09-2024 Evaluation note* Encounter Date Diagnosis [...] potassium improved with dietary restriction and Lasix. [facility] Other 12-04-2023 Evaluation note* Encounter Date Diagnosis [...] 4, GFR 15-29 ml/min (ICD-10 - N18.4) [facility] Other 11-21-2023 Evaluation note* Encounter Date Diagnosis Assessment Notes Treatment Notes Treatment Clinical Notes Aug, Anemia of renal disease (ICD-10 - D63.1) Aug, CKD (chronic kidney disease) stage 4, GFR 15-29 ml/min (ICD-10 - N18.4) [facility] Other 11-09-2023 Evaluation note* Encounter Date Diagnosis [...] of kidney mass hydronephrosis or kidney stones. [facility] Other 10-26-2023 Evaluation note* Encounter Date Diagnosis [...] potassium improved with dietary restriction and Lasix. [facility] Other 09-18-2023 Evaluation note* Encounter Date Diagnosis [...] potassium improved with dietary restriction and Lasix. [facility] Other 08-31-2023 Evaluation note* Encounter Date Diagnosis [...] potassium improved with dietary restriction and Lasix. [facility] Other 07-25-2023 Evaluation note* Encounter Date Diagnosis [...] to normal with dietary restriction and Lasix. [facility] Other 07-01-2023 Evaluation note* Encounter Date Diagnosis Assessment Notes Treatment Notes Treatment Clinical Notes Apr, CKD (chronic kidney disease) stage 4, GFR 15-29 ml/min (ICD-10 - N18.4) Apr, Anemia of renal disease (ICD-10 - D63.1) [facility] Other 06-27-2023 Evaluation note* Encounter Date Diagnosis [...] to Continue Vit D 5000 units daily 27 Can, 2023 Hyperkalemia (ICD-10 - E87.5) She had hyperkalemia likely due to the CKD and lisinopril. Her potassium is back to normal with dietary restriction and Lasix. [facility] Other 06-01-2023 Evaluation note* Encounter Date Diagnosis [...] potassium diet and provide information about it. [facility] Other 03-16-2023 Evaluation note* Encounter Date Diagnosis [...] to Continue Vit D 5000 units daily [facility] Other 01-30-2023 Evaluation note* Encounter Date Diagnosis [...] to Continue Vit D 5000 units daily [facility] Other 12-22-2022 Evaluation note* Encounter Date Diagnosis [...] to Continue Vit D 5000 units daily [facility] Other 11-16-2022 Evaluation note* Encounter Date Diagnosis [...] to Continue Vit D 5000 units daily [facility] Other 08-04-2022 Evaluation note* Encounter Date Diagnosis Assessment Notes Treatment Notes Treatment Clinical Notes May, Hypertensive chronic kidney disease with stage 1 through stage 4 chronic kidney disease, or unspecified chronic kidney disease (ICD-10 - I12.9) [facility] Other 08-02-2022 Evaluation note* Encounter Date Diagnosis [...] to Continue Vit D 5000 units daily [facility] Other 07-19-2022 Evaluation note* Encounter Date Diagnosis Assessment Notes Treatment Notes Treatment Clinical Notes Apr, Hypertensive chronic kidney disease with stage 1 through stage 4 chronic kidney disease, or unspecified chronic kidney disease (ICD-10 - I12.9) [facility] Other 04-14-2022 Evaluation note* Encounter Date Diagnosis [...] to take Vit D 1000 units daily [place] [facility] Other Evaluation noteNo InformationNort [facility] Other Evaluation note* Diagnosis Atherosclerosis of [place] coronary artery of [place] heart without angina 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 Hypertensive urgency Shortness of breath Paroxysmal atrial fibrillation ([facility]) Atrial fibrillation Localized edema Edema documented in this encounter [facility] System[facility] general Narrative - Reported* Type Description [...] History SEE ABOVE Hospitalization History COVID 09/2020 [facility] Other history general Narrative - Reported* Type [...] History SEE ABOVE Hospitalization History COVID 09/2020 [facility] Other history general Narrative - Reported* Type [...] History SEE ABOVE Hospitalization History COVID 09/2020 [facility] Other Hisnlgu general Narrative - ReportedNoNextiva Other History general Narrative - Reported* Type [...] NOSE 10/2019 Surgical History QUAD BYPASS AT [facility] [place] 01/01/2021 Hospitalization History ELEVATED BLOOD PRESSURE Hospitalization History SEE ABOVE Hospitalization History COVID 09/2020 [facility] Other InstructionsNot on filedocumented in this encounter [facility] Summary Purpose Family History No Family [...] and content) DATE CREATED AUTHOR 04/02/2018 [facility] DATE CREATED AUTHOR AUTHOR'S ORGANIZ ATION 01/27/2023 [facility] DATE CREATED AUTHOR AUTHOR'S ORGANIZ ATION 01/17/2024 [facility] EPIC DATE CREATED AUTHOR AUTHOR'S ORGANIZ ATION 01/18/2024 [facility] DATE CREATED AUTHOR AUTHOR'S ORGANIZ ATION 02/11/2024 [facility] REASON FOR VISIT (unrecogniz ed section and content) Reason Comments Med Refill Care Teams (unrecognized sec tion and content) Ophthalmologist Retina Specialist Relationship Specialty Start Date End Date Dhruv Rubi MD [address] [phone] PCP - General Family Medicine 10/20/20 FOR [...] BE BASED ON THE PRIMARY CLINICAL RECORDS. [facility]. provides no warranty or guarantee of the accuracy or completeness of information in this document.
[2024-03-02] VITALS (126 sets, daily range): BP systolic 83–253; BP diastolic 37–96; PULSE 65–100; TEMP 36.4–36.6; O2SAT 80–99
[2024-03-02] MEDS: HYDRALAZINE HCL 20 MG/ML VIAL 10 MG IVP ×2 (00:42→05:22)
[2024-03-02] MEDS: ISOSORBIDE MONONITRATE 60 MG TAB.ER.24H PO ×2 (00:47→07:57)
[2024-03-02] MEDS: ACETAMINOPHEN 325 MG TABLET 650 MG PO ×3 (02:19→16:26)
[2024-03-02 05:36] LABS: Hematocrit 26.2 % (36.0-48.0); Hemoglobin 8.8 g/dL (12.0-16.0); Mean Corpuscular HGB Conc 33.6 g/dL (29.9-35.2); Mean Corpuscular Hemoglobin 31.4 pg (26.7-34.0); Mean Corpuscular Volume 93.6 fL (81.0-99.0); Mean Platelet Volume 10.2 fL (9.5-13.5); Platelet Count 190 10^3/uL (150-450); Red Cell Distribution Width 15.5 % (11.0-15.0); White Blood Count 7.4 10^3/uL (4.0-11.0)
[2024-03-02 05:55] LABS: Magnesium 1.7 mg/dL (1.8-2.4)
[2024-03-02 06:02] LABS: Anion Gap 15.4; BUN Creatinine Ratio 21.1; Calcium 9.1 mg/dL (8.5-10.1); Chloride 105 mmol/L (98-107); Estimated GFR (African America 30 (>=60); Estimated GFR (Non-African Ame 25 (>=60); Glucose 194 mg/dL (74-106); Potassium 4.4 mmol/L (3.5-5.1); Sodium 138 mmol/L (136-145); Troponin I High Sensitivity 14.3 pg/mL (4.0-51.3)
[2024-03-02] MEDS: LEVOTHYROXINE SODIUM 125 MCG TABLET PO (06:46)
[2024-03-02] MEDS: LIOTHYRONINE SODIUM 5 MCG TABLET 10 MCG PO (06:46)
[2024-03-02] MEDS: HEPARIN SODIUM (PORCINE) 5,000 UNIT/ML VIAL 5000 UNIT SUBQ ×2 (07:57→21:38)
--- NOTE | 2024-03-02 08:02 | PM.HP ---
HPI H&P: HPI History of Present Illness Chief complaint: CHEST PAIN Narrative: 78 yo with h/o CAD, prior CABG at [facility], stage 4 CKD, essential HTN (recently difficult to control) and Heart failure with preserved EF. . Several admissions here for hypertensive urgency and chest pain at least 2 in the last 2 months. Patient reports she sees Dr. Rubi regularly and is now with [facility] cardiology. Still with frequent medication adjustments for her blood pressure. She notes yesterday she started to get substernal chest pain, non radiating, felt like something was pecking around in there . no n/v/d, and headache. She checked her BP was 198/60's. She says when she takes all her medications then her BP drops really low and she feels like a drunken ballet company member . She notes ECHO last month and stress test 3 years ago that led to CABG. There has been discussions about heart cath but with her renal function, it has not been pursued. Her is at bedside and feels that she continues to have this same problem with really high BP, heache and chest pain and that there is something really going on. If She would need a transfer, They would prefer to go to [facility] where she had her CABG. This morning she notes substernal chest pain, non radiating, pain 1/10 with dull headache. Patient was found to have BP of 243/98 in the ER, she was given labetolol, hydralazine, nitro, morphine and aspirin load. Her BP came down to 179/67. ER findings showed hb 8.8, cr 1.94, BUN 41, ha1c 7.0, normal lipids, proBNP 929, Trop 12, 14, initial EKG showed normal rate, rhythm with no ST segment changes. Also review of her chart, she has had normal Metanephrine levels, cortisol, renin, and renal ultrasound showing renovascular hypertension. Echo on 01/22/24 EF 65-70% increased LVH, diastolic dysfunction Opioid HPI Opioid Management Most Recent Opioid Data: Last Pain Scale 1 03/02/24 12:00 Last Pain Assessment 03/02/24 12:00 Last MAR Pain Assessment 03/02/24 09:10 Last ORT Total Score 0 03/01/24 23:16 Last ORT Risk Category Low Risk 03/01/24 23:16 Review of Systems ROS Narrative ROS: a complete review of systems were reviewed with patient and are positive as below or listed in History of Chief Complaint. General: no fever, chills, night sweats Head: no headache, trauma, visual changes, nausea or vomiting Skin: no reported rashes, itching or sores Eyes: no blurriness of vision Ears: no reported hearing loss, vertigo, earache, or tinnitus Throat: no sore throat, hoarseness, swelling of neck, or tongue pain Heart: chest pain Lungs: shortness of breath or cough GI: no diarrhea or vomiting/nausea Urinary: no urinary urgency, frequency or pain Neuro: no numbness or tingling HEM: no bleeding issues or bruising ENDO: thyroid problems Psych: no anxiety or depression PF[facility] Medical History (Updated 03/02/24 @ 08:33 by Mellissa Contreras DO) Iron deficiency anemia, unspecified ?D50.9 - Iron deficiency anemia, unspecified (ICD-10) Hypothyroidism (acquired) ?E03.9 - Hypothyroidism, unspecified (ICD-10) (HFpEF) heart failure with preserved ejection fraction ?I50.30 - Unspecified diastolic (congestive) heart failure (ICD-10) Hypertensive emergency ?I16.1 - Hypertensive emergency (ICD-10) Chronic kidney disease ?N18.9 - Chronic kidney disease, unspecified (ICD-10) Hypertensive urgency ?I16.0 - Hypertensive urgency (ICD-10) Chest pain ?R07.9 - Chest pain, unspecified (ICD-10) Hypertensive urgency ?I16.0 - Hypertensive urgency (ICD-10) Raynaud disease ?I73.00 - Raynaud's syndrome without gangrene (ICD-10) Basal cell carcinoma of skin of nose ?C44.311 - Basal cell carcinoma of skin of nose (ICD-10) Elevated cholesterol ?E78.00 - Pure hypercholesterolemia, unspecified (ICD-10) Chronic kidney disease ?N18.9 - Chronic kidney disease, unspecified (ICD-10) HTN (hypertension) ?I10 - Essential (primary) hypertension (ICD-10) Diabetes ?E11.9 - Type 2 diabetes mellitus without complications (ICD-10) CAD (coronary artery disease) ?I25.10 - Atherosclerotic heart disease of [place] coronary artery without angina pectoris (ICD-10) Surgical History S/P CABG x 1 ?Z95.1 - Presence of aortocoronary bypass graft (ICD-10) H/O shoulder surgery ?Z98.890 - Other specified postprocedural states (ICD-10) History of cholecystectomy ?Z90.49 - Acquired absence of other specified parts of digestive tract (ICD-10) History of hysterectomy ?Z90.710 - Acquired absence of both cervix and uterus (ICD-10) Family History Sister Family history of myocardial infarction Family history of hypertension Brother Family history of myocardial infarction Family history of diabetes mellitus Brother Family history of hypertension Father Family history of cancer Social History Smoking status: Former smoker Highest level of school completed/degree received: 12th grade, no diploma Meds Home Medications and Allergies Home Medications ?Medication ?Instructions ?Recorded ?Confirmed ?Type atorvastatin 80 mg tablet 80 mg PO .QHS 03/17/23 03/02/24 History insulin aspart U-100 100 unit/mL 12 unit subcut DAILY 03/17/23 03/02/24 History (3 mL) subcutaneous pen (Novolog FlexPen U-100 Insulin aspart) liothyronine 5 mcg tablet 10 mcg PO .QD 03/17/23 03/02/24 History magnesium oxide 400 mg (241.3 mg 400 mg PO TID 03/17/23 03/02/24 History magnesium) tablet pantoprazole 40 mg tablet,delayed 40 mg PO .QD 03/17/23 03/02/24 History release ferrous sulfate 325 mg (65 mg 325 mg PO BID 12/31/23 03/02/24 History iron) tablet clonidine HCl 0.1 mg tablet 0.2 mg (2 x 0.1 mg) PO BID #120 01/01/24 03/02/24 Rx tabs carvedilol 25 mg tablet 50 mg PO BID 01/22/24 03/02/24 History fluconazole 100 mg tablet 100 mg PO DAILY 01/22/24 03/02/24 History furosemide 20 mg tablet 20 mg PO DAILY 01/22/24 03/02/24 History levothyroxine 125 mcg tablet 125 mcg PO DAILY 01/22/24 03/02/24 History allopurinol 100 mg tablet 50 mg (1/2 x 100 mg) PO Q48H #30 01/24/24 03/02/24 Rx tabs insulin detemir U-100 100 unit/mL 26 unit (0.26 mL) subcut BID #15 mL 01/24/24 03/02/24 Rx (3 mL) subcutaneous pen (Levemir FlexPen) isosorbide mononitrate 60 mg 60 mg PO QD #30 tabs 01/24/24 03/02/24 Rx tablet,extended release 24 hr tramadol 50 mg tablet 25 mg (1/2 x 50 mg) PO Q6H PRN 01/24/24 03/02/24 Rx Pain #14 tabs Allergies Allergy/AdvReac Type Severity Reaction Status Date / Time amlodipine [From Norvasc] Allergy Mild itchy Verified 03/01/24 19:50 Iodinated Contrast Media Allergy Unknown Verified 03/01/24 19:50 amoxicillin [From Augmentin] Allergy Rash Verified 03/01/24 19:50 clavulanic acid Allergy Rash Verified 03/01/24 19:50 [From Augmentin] sulfamethoxazole Allergy Rash Verified 03/01/24 19:50 [From Bactrim] trimethoprim [From Bactrim] Allergy Rash Verified 03/01/24 19:50 Exam Narrative Exam Narrative: General: Patient is alert, and oriented to person, place and time with normal affect, proper hygiene Skin: no visible rashes, or ulcers Head: atraumatic, acephalic Eyes: PERRLA, no nystagmus present, conjunctiva clear, no scleral icterus Ears: normal gross auditory acuity Heart: Normal rate and rhythm, no murmurs/rubs/gallops Lungs: no audible wheezes, crackles and normal breath sounds all lung cordova Abdomen: Normal audible bowel sounds, no distension, No palpable masses, no organomegaly, no rebound/guarding/ or rigidity Musculoskeletal:no swelling bilateral lower extremities Neuro: CN II-X grossly intact Constitutional Vital Signs, click to edit/add: Last Vital Signs Temp 97.9 F 03/02/24 07:12 Pulse 88 03/02/24 07:20 Resp 12 03/02/24 07:20 BP 198/79 H 03/02/24 07:12 Pulse Ox 97 03/02/24 07:20 O2 Del Method Room Air 03/02/24 06:00 Results Labs Labs: Short CBC 03/01/24 03/02/24 Range/Units 20:04 04:08 WBC 7.0 7.4 (4.0-11.0) 10^3/uL Hgb 9.5 L 8.8 L (12.0-16.0) g/dL Hct 27.8 L 26.2 L (36.0-48.0) % Plt Count 218 190 (150-450) 10^3/uL BMP 03/01/24 03/02/24 20:04 04:08 Sodium 138 138 Potassium 4.1 4.4 Chloride 103 105 Carbon Dioxide 23.0 22.0 BUN 42.0 H 41.0 H Creatinine 2.23 H 1.94 H Glucose 188 H 194 H Calcium 8.7 9.1 Liver Function 03/01/24 Range/Units 20:04 Total Bilirubin 0.6 (0.2-1.0) mg/dL AST 16 (15-37) U/L ALT 29 (14-59) U/L Alkaline Phosphatase 106 (46-116) U/L Albumin 3.5 (3.4-5.0) g/dL Assessment and Plan Assessment and Plan (1) Hypertensive urgency: Assessment and Plan: start Nitro drip. Patient still symptomatic this morning with headache and chest pain. continue to trend troponin, monitor ProBNP, in ICU. continue coreg, imdur, lasix, clonidine. Stop topical nitro and hydralazine. Will get ECHO and Cards consult tomorrow as is holiday today and no one in house for this. Consider transfer if any EKG changes or elevation of trop occur as patient has had CABG before and is high risk. Discussed with patient and and they would prefer [facility] if needed. mammography technologist was able to come in today, awaiting read, recommend trending troponin, monitoring BP, improving symptoms on Nitro drip, cards consult tomorrow and decision for Dr. Rubi and rush as to transfer for heart cath given history and symptomatology (2) Chest pain: Assessment and Plan: see #1, initial trop, proBNP normal range; Start Nitro drip and titrate/monitor closely. Place on daily aspirin, continue high dose statin. Qualifiers: Chest pain type: unspecified Qualified Code(s): R07.9 - Chest pain, unspecified (3) (HFpEF) heart failure with preserved ejection fraction: Assessment and Plan: no signs of current fluid overload, no pulmonary congestion seen on chest x-ray. monitor proBNP, strict I&O's, fluid restriction with salt restriction. Qualifiers: Heart failure chronicity: acute on chronic Qualified Code(s): I50.33 - Acute on chronic diastolic (congestive) heart failure (4) Chronic kidney disease: Assessment and Plan: cr 1.94 Qualifiers: Chronic kidney disease stage: stage 4 (severe) Qualified Code(s): N18.4 - Chronic kidney disease, stage 4 (severe) (5) Diabetes: Assessment and Plan: continue SSI, Levemir; ha1c 7.0 Qualifiers: Diabetes mellitus complication status: with other specified complication Diabetes mellitus rodent exterminator insulin use: unspecified rodent exterminator insulin use status Diabetes mellitus type: type 2 Qualified Code(s): E11.69 - Type 2 diabetes mellitus with other specified complication (6) CAD (coronary artery disease): Assessment and Plan: continue aspirin and statin, recheck lipid showed normal range Qualifiers: Associated angina: with other forms of angina Coronary Disease-Associated Artery/Lesion type: [place] artery [place] vs. transplanted heart: [place] heart Qualified Code(s): I25.118 - Atherosclerotic heart disease of [place] coronary artery with other forms of angina pectoris (7) S/P CABG x 1: (8) Hypothyroidism (acquired): Assessment and Plan: recheck thyroid functions (9) Iron deficiency anemia, unspecified: Assessment and Plan: continue iron supplement, benefits of aspirin outweigh risks. monitor daily CBC Qualifiers: Iron deficiency anemia type: unspecified iron deficiency Qualified Code(s): D50.9 - Iron deficiency anemia, unspecified Plan patient is a full code continue heparin for DVT prophylaxis patient is inpatient status and is expected to cross 2 midnights as patient has multiple co-morbidities and is high risk for ND and developing other complications secondary to her poorly controlled hypertension.
[2024-03-02] MEDS: INSULIN ASPART 300 UNIT/3 ML PEN SUBQ ×4 (08:03→21:40)
[2024-03-02 08:04] LABS: Glucometer 226 mg/dL (74-106)
[2024-03-02] MEDS: FUROSEMIDE 20 MG TABLET PO (08:16)
[2024-03-02] MEDS: FERROUS SULFATE 325 MG TABLET PO ×2 (08:16→21:38)
[2024-03-02] MEDS: CARVEDILOL 25 MG TABLET 50 MG PO ×2 (08:17→17:21)
[2024-03-02] MEDS: CLONIDINE HCL 0.1 MG TABLET 0.200000000000000011 MG PO ×2 (08:17→17:20)
[2024-03-02] MEDS: OMEPRAZOLE 40 MG CAPSULE.DR PO (08:17)
[2024-03-02 08:47] LABS: Estimated Average Glucose 154 mg/dL
[2024-03-02] MEDS: ASPIRIN 81 MG TAB.CHEW PO (08:54)
[2024-03-02] MEDS: NITROGLYCERIN IN 5 % DEXTROSE 50 MG/250 ML INFUS..BTL IV (08:55)
[2024-03-02 08:56] LABS: Cholesterol 137 mg/dL (<=200); HDL Cholesterol 46 mg/dL (40-60); Triglycerides 162 mg/dL (<=150); VLDL CHOLESTEROL 32.4 mg/dL
[2024-03-02 09:26] LABS: Free T4 0.95 ng/dL (0.76-1.46)
--- NOTE | 2024-03-02 09:46 | PC.NURSE ---
Dr. Jamil Contreras at bedside and discussed with patient and currently at bedside. Verbal orders were given to stop Nitroglycerin drip at the bedside due to soft blood pressures. Additional verbal orders were given for a 250 ml bolus of normal saline ordered after second set of low blood pressures. Adminstered as given
[2024-03-02] MEDS: 0.9 % SODIUM CHLORIDE 250 ML IV.SOLN IV ×2 (09:50→10:20)
--- NOTE | 2024-03-02 11:12 | CA_ITS ---
Patient Name: KYLAH BERGER MR#: [id number] : 1945 Exam Date: 03/02/2024 Ordering Doctor: TIKA CHACON . ECHOCARDIOGRAM REPORT PROCEDURE: CA ECHO LIMITED INDICATIONS: CP/HTN Urgency COMPARISON: None. DESCRIPTION: Limited ECHOCARDIOGRAM Real-time transthoracic echocardiography with 2D and M-mode performed. QUALITY: Technical quality was good. LEFT VENTRICLE: Normal chamber size. Moderate to severe concentric left ventricular hypertrophy. Global left ventricular systolic function is hyperdynamic. LV EF: Visual estimation of left ventricular ejection fraction is 75% which appears unchanged from previous study of 01/22/24. DIASTOLIC: ATRIAL SEPTUM: LEFT ATRIUM: Moderate dilatation. RIGHT ATRIUM: Normal chamber size. RIGHT VENTRICLE: Normal chamber size. Normal right ventricular systolic function. TRICUSPID VALVE: Normal mobility and thickness. MITRAL VALVE: Normal mobility and thickness. Moderate mitral annular calcification. An echogenic mobile density is seen attached to the atrial surface of the posterior mitral leaflet, but could represent an imaging artifact. AORTIC VALVE: Normal trileaflet appearance. Normal leaflet mobility. AORTIC ROOT: Normal diameter and appearance. PULMONIC VALVE: Normal thickness and mobility. PERICARDIUM: No evidence of pericardial effusion. IVC: Collapses with inspirations. Normal size. PLEURA: CONCLUSION: 1. Moderate to severe left ventricular concentric hypertrophy with hyperdynamic systolic function. LVEF is 75%. 2. Normal right ventricular size and systolic function. 3. An echogenic mobile density is seen attached to the atrial surface of the posterior mitral leaflet, but could represent an imaging artifact. Depending on the clinical picture this can be investigated by further imaging such as transesophageal echocardiogram. 4. Limited study performed with no Doppler interrogation as requested. Adult Echocardiography Procedure Report Left Ventricle LVEDD (3.7 - 5.6 cm): 4.05 cm LVESD (2.2 - 4.0 cm): 2.67 cm LVIVS thickness (0.6 - 1.2 cm): 1.45 cm LVPW thickness (0.5 - 1.0 cm): 1.37 cm LVOT Diameter 1.96 cm Left Ventricular Ejection Fraction: 69.56 % Left Atrium LA Volume Index (2D A2C): 47.44 ml/m2 Left Atrium Systolic Dimension: 4.86 cm Mitral Valve Right Ventricle RV Internal Diastolic Dimension: 2.94 cm Aorta AO Root Diam: 3.15 cm Aortic Valve Tricuspid Valve Pulmonic Valve Right Atrium Right Atrium Systolic Pressure: 23.45 ml, 23.45 ml Dictated by: Merlin Hall M.D. on 03/03/2024 at 07:20 Approved by: Merlin Hall M.D. on 03/03/2024 at 07:28
--- NOTE | 2024-03-02 11:18 | PC.NURSE ---
Patient is reporting dull chest pain at a 2/10 with a slight headache. Patient also reports that she has a high pain threshold. BP is being run every 15 minutes at this time. Nitroglycerin gtt remains off at this time due to soft BP. Physician., Dr. Jamil Contreras, was advised regarding patient reports of pain. Physician was also updated on patient's current blood pressures. Echocardiogram was reordered stat with limited views due to unclear if manager business will be available to read result of test at this time.
[2024-03-02 13:00] LABS: Glucometer 278 mg/dL (74-106)
[2024-03-02 14:05] LABS: Troponin I High Sensitivity 15.4 pg/mL (4.0-51.3)
[2024-03-02] MEDS: MAGNESIUM SULFATE IN WATER 2 GM/50 ML PREMIX IV (15:17)
[2024-03-02 17:18] LABS: Glucometer 234 mg/dL (74-106)
[2024-03-02] MEDS: ATORVASTATIN CALCIUM 40 MG TABLET 80 MG PO (21:38)
[2024-03-02 21:39] LABS: Glucometer 187 mg/dL (74-106)
[2024-03-03] VITALS (95 sets, daily range): BP systolic 87–216; BP diastolic 33–96; PULSE 60–85; TEMP 36.4–37.1; O2SAT 94–98
[2024-03-03 04:22] LABS: Basophils Percent Auto 0.7 % (0.2-2.0); Eosinophils Absolute Auto 0.2 10^3/uL (0.0-0.7); Eosinophils Percent Auto 2.8 % (0.9-7.0); Hematocrit 26.6 % (36.0-48.0); Hemoglobin 8.6 g/dL (12.0-16.0); Immature Granulocytes Abs Auto 0.02 10^3/uL (0.00-0.03); Immature Granulocytes Pct Auto 0.4 % (0.0-0.5); Lymphocytes Absolute Auto 1.7 10^3/uL (1.2-3.8); Mean Corpuscular HGB Conc 32.3 g/dL (29.9-35.2); Mean Corpuscular Hemoglobin 29.9 pg (26.7-34.0); Mean Corpuscular Volume 92.4 fL (81.0-99.0); Mean Platelet Volume 9.9 fL (9.5-13.5); Monocytes Absolute Auto 0.6 10^3/uL (0.3-0.8); Neutrophils Absolute Auto 3.1 10^3/uL (1.4-6.5); Neutrophils Percent Auto 55.1 % (43.0-75.0); Platelet Count 188 10^3/uL (150-450); Red Blood Count 2.88 10^6/uL (4.20-5.40); Red Cell Distribution Width 15.2 % (11.0-15.0); White Blood Count 5.6 10^3/uL (4.0-11.0)
[2024-03-03 04:45] LABS: Alanine Aminotransferase 23 U/L (14-59); Albumin Globulin Ratio 0.9; Albumin Level 3.1 g/dL (3.4-5.0); Alkaline Phosphatase 87 U/L (46-116); Anion Gap 13.9; Aspartate Amino Transferase 18 U/L (15-37); BUN Creatinine Ratio 21.2; Bilirubin Total 0.6 mg/dL (0.2-1.0); Carbon Dioxide 23.7 mmol/L (21.0-32.0); Chloride 104 mmol/L (98-107); Estimated GFR (African America 30 (>=60); Estimated GFR (Non-African Ame 25 (>=60); Globulin 3.5 g/dL; Glucose 165 mg/dL (74-106); Potassium 4.6 mmol/L (3.5-5.1); Sodium 137 mmol/L (136-145); Total Protein 6.6 g/dL (6.4-8.2)
[2024-03-03] MEDS: LIOTHYRONINE SODIUM 5 MCG TABLET 10 MCG PO (05:19)
[2024-03-03] MEDS: LEVOTHYROXINE SODIUM 125 MCG TABLET PO (05:20)
--- NOTE | 2024-03-03 06:47 | P.PN_ITS ---
Progress Note: Subjective Subjective Interval history: No more chest pain. Blood pressure still somewhat elevated this morning Exam Constitutional Vital Signs, click to edit/add: Last Vital Signs Temp 98.3 F 03/03/24 04:00 Pulse 80 03/03/24 06:04 Resp 18 03/03/24 04:00 BP 164/53 H 03/03/24 06:04 Pulse Ox 96 03/03/24 06:04 O2 Del Method Room Air 03/03/24 06:04 Documenting provider has reviewed patient's vital signs: yes Common normals: no apparent distress Chest Common normals: inspection of chest normal and palpation of chest normal Respiratory Common normals: normal respiratory effort and no retractions Cardio Common normals: regular rate, regular rhythm and no murmurs GI Common normals: Normal to inspection, nondistended, normoactive bowel sounds present, soft to palpation, non-tender, no hepatosplenomegaly and no masses Back & Pelvis Common normals: thoracic and lumbar spine normal to inspection Extremity Common normals: no clubbing, cyanosis or edema Progress Note: Objective Labs Labs: Short CBC 03/03/24 Range/Units 03:36 WBC 5.6 (4.0-11.0) 10^3/uL Hgb 8.6 L (12.0-16.0) g/dL Hct 26.6 L (36.0-48.0) % Plt Count 188 (150-450) 10^3/uL BMP 03/03/24 03:36 Sodium 137 Potassium 4.6 Chloride 104 Carbon Dioxide 23.7 BUN 41.0 H Creatinine 1.93 H Glucose 165 H Calcium 9.0 Liver Function 03/03/24 Range/Units 03:36 Total Bilirubin 0.6 (0.2-1.0) mg/dL AST 18 (15-37) U/L ALT 23 (14-59) U/L Alkaline Phosphatase 87 (46-116) U/L Albumin 3.1 L (3.4-5.0) g/dL Progress Note: A&P Assessment and Plan (1) Hypertensive urgency: (2) Chest pain: Qualifiers: Chest pain type: unspecified Qualified Code(s): R07.9 - Chest pain, unspecified (3) (HFpEF) heart failure with preserved ejection fraction: Qualifiers: Heart failure chronicity: acute on chronic Qualified Code(s): I50.33 - Acute on chronic diastolic (congestive) heart failure (4) Chronic kidney disease: Qualifiers: Chronic kidney disease stage: stage 4 (severe) Qualified Code(s): N18.4 - Chronic kidney disease, stage 4 (severe) (5) Diabetes: Qualifiers: Diabetes mellitus complication status: with other specified complication Diabetes mellitus detention 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 transplanted heart: [place] heart Qualified Code(s): I25.118 - Atherosclerotic heart disease of [place] coronary artery with other forms of angina pectoris (7) S/P CABG x 1: (8) Hypothyroidism (acquired): (9) Iron deficiency anemia, unspecified: Qualifiers: Iron deficiency anemia type: unspecified iron deficiency Qualified Code(s): D50.9 - Iron deficiency anemia, unspecified Plan Hypertensive emergency (On admission: SBP>180 with end organ finding of angina and headache): BP better, still up somewhat this morning, discussed with cardiology. Discussed with cardiology at [facility], recommended at this point because of her kidney function to improve blood pressure control, will get a stress test while she is here in the hospital. Unable to use dye for the stress test secondary to hypotensive episode previously X2. Chest pain: Troponins remain negative. Chest pain persisting. Discussed cardiology Heart failure with preserved ejection fraction: BNP's have remained normal. No signs of fluid overload. Chronic kidney disease: Stage IV-her numbers are about as good as they have been in some time. Hopefully this will allow us to get the heart catheterization completed. IDDM-sugars are stable Hypomagnesemia-supplemented, check level in a.m. GERD-continue with home medications Low back pain-continue with home medications History recurrent UTIs -check UA with culture CAD (coronary artery disease): Status post CABG, symptoms feel similar to when she had her CABG completed. Check with cardiology for heart catheterization. Hypothyroidism (acquired): TSH is low, T4 is normal, will adjust levothyroxine Iron deficiency anemia as well as anemia of chronic kidney disease-monitor daily, down slightly today. Admission status: With the above management necessitating hospital stay, medically necessary treatment spanning more than 2 midnights. Stress test for tomorrow, disposition after that
[2024-03-03] MEDS: CARVEDILOL 25 MG TABLET 50 MG PO (07:47)
[2024-03-03] MEDS: CLONIDINE HCL 0.1 MG TABLET 0.200000000000000011 MG PO (07:48)
[2024-03-03 07:51] LABS: Glucometer 217 mg/dL (74-106)
[2024-03-03] MEDS: INSULIN ASPART 300 UNIT/3 ML PEN SUBQ ×3 (07:51→21:31)
[2024-03-03] MEDS: FUROSEMIDE 20 MG TABLET PO (10:26)
[2024-03-03] MEDS: ASPIRIN 81 MG TAB.CHEW PO (10:26)
[2024-03-03] MEDS: HEPARIN SODIUM (PORCINE) 5,000 UNIT/ML VIAL 5000 UNIT SUBQ ×2 (10:26→21:28)
[2024-03-03] MEDS: OMEPRAZOLE 40 MG CAPSULE.DR PO (10:27)
[2024-03-03] MEDS: FERROUS SULFATE 325 MG TABLET PO ×2 (10:27→21:28)
[2024-03-03 11:14] LABS: Bilirubin Urine NEGATIVE (NEGATIVE); Blood Urine NEGATIVE (NEGATIVE); Clarity Urine CLEAR (CLEAR); Color Urine LT. YELLOW (YELLOW); Glucose Urine UA NEGATIVE (NEGATIVE); Ketones Urine NEGATIVE (NEGATIVE); Leukocyte Esterase Urine NEGATIVE (NEGATIVE); Nitrite Urine NEGATIVE (NEGATIVE); Protein Urine NEGATIVE (NEG/TRACE); Urobilinogen Urine 0.2 EU/dL (0.2-1.0)
[2024-03-03] MEDS: ISOSORBIDE MONONITRATE 60 MG TAB.ER.24H 120 MG PO (11:33)
[2024-03-03 11:34] LABS: Glucometer 290 mg/dL (74-106)
[2024-03-03 12:29] LABS: Bacteria Urine NONE SEEN #/HPF (NONE SEEN); Cast Seen? NONE SEEN #/LPF (NONE SEEN); Crystals Seen? None Seen #/HPF (None Seen); Mucus Urine NONE SEEN (NONE SEEN); RBC Urine 0-2 #/HPF (0-2); Squamous Epithelial Cell Urine FEW #/LPF (NONE/RARE); Urine Culture Indicated ALREADY ORDERED; WBC Urine 0-2 #/HPF (NONE SEEN)
--- NOTE | 2024-03-03 13:56 | SWNOTE1 ---
SW met with pt to discuss dc needs. Pt's niece and niece's in room as well. Pt lives at home with her . Pt is independent at home and does not use any DME. Pt still drives when she needs to. She only has 1 step on to the porch, inside is 1 story. Pt does not have any HH or services coming in. Pt is independent with all ADL's and has no concerns/needs at discharge. SW to follow as needed.
--- NOTE | 2024-03-03 14:15 | DIETREC ---
Recommend change diet to 1800 kcal CCD, Heart Healthy. [place] text to Dr. Rubi.
--- NOTE | 2024-03-03 15:47 | P.CACN_ITS ---
History of Present Illness History of Present Illness Consult date: 03/03/24 Requesting physician: Merrick Rubi Consult reason: chest pain and hypertension Chief complaint: CHEST PAIN Narrative: with h/o CAD, CABG 2020, stafe 4 CKD, essential HTN admitted for CP in the setting of a HTN emergency; SBPs in the 200s. The chest pain resolved when her BP was better controlled. Her EKG shows no significant abnormalities. normal Troponin. Echo shows a hyperdynamic LV systolic function. She is currently chest pain free. Review of Systems ROS Status of ROS 10 or more systems reviewed and unremark able except as noted in history and below Cardiovascular Reports: chest pain (when BPs were elevated) [facility] Medical History (Updated 03/02/24 @ 08:33 by Mellissa Contreras DO) Iron deficiency anemia, unspecified ?D50.9 - Iron deficiency anemia, unspecified (ICD-10) Hypothyroidism (acquired) ?E03.9 - Hypothyroidism, unspecified (ICD-10) (HFpEF) heart failure with preserved ejection fraction ?I50.30 - Unspecified diastolic (congestive) heart failure (ICD-10) Hypertensive emergency ?I16.1 - Hypertensive emergency (ICD-10) Chronic kidney disease ?N18.9 - Chronic kidney disease, unspecified (ICD-10) Hypertensive urgency ?I16.0 - Hypertensive urgency (ICD-10) Chest pain ?R07.9 - Chest pain, unspecified (ICD-10) Hypertensive urgency ?I16.0 - Hypertensive urgency (ICD-10) Raynaud disease ?I73.00 - Raynaud's syndrome without gangrene (ICD-10) Basal cell carcinoma of skin of nose ?C44.311 - Basal cell carcinoma of skin of nose (ICD-10) Elevated cholesterol ?E78.00 - Pure hypercholesterolemia, unspecified (ICD-10) Chronic kidney disease ?N18.9 - Chronic kidney disease, unspecified (ICD-10) HTN (hypertension) ?I10 - Essential (primary) hypertension (ICD-10) Diabetes ?E11.9 - Type 2 diabetes mellitus without complications (ICD-10) CAD (coronary artery disease) ?I25.10 - Atherosclerotic heart disease of [place] coronary artery without angina pectoris (ICD-10) Surgical History S/P CABG x 1 ?Z95.1 - Presence of aortocoronary bypass graft (ICD-10) H/O shoulder surgery ?Z98.890 - Other specified postprocedural states (ICD-10) History of cholecystectomy ?Z90.49 - Acquired absence of other specified parts of digestive tract (ICD- 10) History of hysterectomy ?Z90.710 - Acquired absence of both cervix and uterus (ICD-10) Family History Sister Family history of myocardial infarction Family history of hypertension Brother Family history of myocardial infarction Family history of diabetes mellitus Brother Family history of hypertension Father Family history of cancer Social History Smoking status: Former smoker Highest level of school completed/degree received: 12th grade, no diploma Meds Home Medications and Allergies Home Medications ?Medication ?Instructions ?Recorded ?Confirmed ?Type atorvastatin 80 mg tablet 80 mg PO .QHS 03/17/23 03/02/24 History insulin aspart U-100 100 unit/mL 12 unit subcut DAILY 03/17/23 03/02/24 History (3 mL) subcutaneous pen (Novolog FlexPen U-100 Insulin aspart) liothyronine 5 mcg tablet 10 mcg PO .QD 03/17/23 03/02/24 History magnesium oxide 400 mg (241.3 mg 400 mg PO TID 03/17/23 03/02/24 History magnesium) tablet pantoprazole 40 mg tablet,delayed 40 mg PO .QD 03/17/23 03/02/24 History release ferrous sulfate 325 mg (65 mg 325 mg PO BID 12/31/23 03/02/24 History iron) tablet clonidine HCl 0.1 mg tablet 0.2 mg (2 x 0.1 mg) PO BID #120 01/01/24 03/02/24 Rx tabs carvedilol 25 mg tablet 50 mg PO BID 01/22/24 03/02/24 History furosemide 20 mg tablet 20 mg PO DAILY 01/22/24 03/02/24 History levothyroxine 125 mcg tablet 125 mcg PO DAILY 01/22/24 03/02/24 History allopurinol 100 mg tablet 50 mg (1/2 x 100 mg) PO Q48H #30 04/19/24 05/27/24 Rx tabs insulin detemir U-100 100 unit/mL 26 unit (0.26 mL) subcut BID #15 mL 01/24/24 03/02/24 Rx (3 mL) subcutaneous pen (Levemir FlexPen) isosorbide mononitrate 60 mg 60 mg PO QD #30 tabs 01/24/24 03/02/24 Rx tablet,extended release 24 hr Allergies Allergy/AdvReac Type Severity Reaction Status Date / Time amlodipine [From Norvasc] Allergy Mild itchy Verified 03/01/24 19:50 Iodinated Contrast Media Allergy Unknown Verified 03/01/24 19:50 amoxicillin [From Augmentin] Allergy Rash Verified 03/01/24 19:50 clavulanic acid Allergy Rash Verified 03/01/24 19:50 [From Augmentin] sulfamethoxazole Allergy Rash Verified 03/01/24 19:50 [From Bactrim] trimethoprim [From Bactrim] Allergy Rash Verified 03/01/24 19:50 Exam Constitutional Vital Signs, click to edit/add: Last Vital Signs Temp 97.5 F L 03/03/24 12:00 Pulse 60 03/03/24 14:40 Resp 5 L 03/03/24 14:40 BP 151/61 H 03/03/24 14:30 Pulse Ox 97 03/03/24 07:50 O2 Del Method Room Air 03/03/24 06:04 Documenting provider has reviewed patient's vital signs: yes Common normals: no apparent distress General appearance: cooperative and comfortable Nutritional appearance: obese Orientation/consciousness: Yes awake, Yes oriented to person, Yes oriented to place and Yes oriented to time HEN[place] Common normals: normocephalic Head and scalp: normal to inspection Face and sinus: normal facial exam Eye Common normals: PERRL and EOMs intact bilaterally General eye: normal appearance of both eyes Chest Common normals: inspection of chest normal Respiratory Common normals: normal respiratory effort Effort & inspection: able to speak in complete sentences Auscultation: clear to auscultation bilaterally Cardio Common normals: no JVD, regular rate and regular rhythm Rhythm: regular rhythm Heart sounds: S1 normal and S2 normal Extremity Common normals: normal to inspection Results Labs and Meds Lab results: Cardiac Enzymes 03/03/24 Range/Units 03:36 AST 18 (15-37) U/L CBC 03/03/24 Range/Units 03:36 WBC 5.6 (4.0-11.0) 10^3/uL RBC 2.88 L (4.20-5.40) 10^6/uL Hgb 8.6 L (12.0-16.0) g/dL Hct 26.6 L (36.0-48.0) % Plt Count 188 (150-450) 10^3/uL Neut # (Auto) 3.1 (1.4-6.5) 10^3/uL Lymph # (Auto) 1.7 (1.2-3.8) 10^3/uL [place] # (Auto) 0.6 (0.3-0.8) 10^3/uL Eos # (Auto) 0.2 (0.0-0.7) 10^3/uL Baso # (Auto) 0.0 (0.0-0.1) 10^3/uL Comprehensive Metabolic Panel 03/03/24 Range/Units 03:36 Sodium 137 (136-145) mmol/L Potassium 4.6 (3.5-5.1) mmol/L Chloride 104 (98-107) mmol/L Carbon Dioxide 23.7 (21.0-32.0) mmol/L BUN 41.0 H (7.0-18.0) mg/dL Creatinine 1.93 H (0.55-1.02) mg/dL Glucose 165 H (74-106) mg/dL Calcium 9.0 (8.5-10.1) mg/dL AST 18 (15-37) U/L ALT 23 (14-59) U/L Alkaline Phosphatase 87 (46-116) U/L Total Protein 6.6 (6.4-8.2) g/dL Albumin 3.1 L (3.4-5.0) g/dL Intake and Output 03/02/24 03/03/24 03/03/24 23:59 07:59 15:59 Intake Total 300 / 1628.247 207.622 / 3259.507 9033.325 / 1135.325 Output Total 500 / 1200 600 / 1200 150 / 150 Balance -200 / 428.247 -392.378 / 428.247 985.325 / 985.325 Intake: Oral 250 / 1570 200 / 1570 1120 / 1120 IV 50 / 58.247 7.622 / 58.247 15.325 / 15.325 Magnesium Sulfate in Water 2 gm 50 / 50 In 50 ml @ 50 mls/hr IV ONCE ONE Rx#:[id number] Nitroglycerin in 5 % Dextrose 7.622 / 8.247 15.325 / 15.325 50 mg In 250 ml @ 5 MCG/MIN 1.5 mls/hr IV TITR ANTONIA Rx#: [id number] Output: Urine 500 / 1200 600 / 1200 150 / 150 Other: # Unmeasured Voids 1 Weight 84.4 kg Assessment and Plan Assessment and Plan (1) Hypertensive urgency: (2) Chest pain: Qualifiers: Chest pain type: unspecified Qualified Code(s): R07.9 - Chest pain, unspecified (3) (HFpEF) heart failure with preserved ejection fraction: Qualifiers: Heart failure chronicity: acute on chronic Qualified Code(s): I50.33 - Acute on chronic diastolic (congestive) heart failure (4) Chronic kidney disease: Qualifiers: Chronic kidney disease stage: stage 4 (severe) Qualified Code(s): N18.4 - Chronic kidney disease, stage 4 (severe) (5) Diabetes: Qualifiers: Diabetes mellitus type: type 2 Diabetes mellitus correction insulin use: unspecified correction insulin use status Diabetes mellitus complication status: with other specified complication Qualified Code(s): E11.69 - Type 2 diabetes mellitus with other specified complication (6) CAD (coronary artery disease): Qualifiers: Coronary Disease-Associated Artery/Lesion type: [place] artery [place] vs. transplanted heart: [place] heart Associated angina: with other forms of angina Qualified Code(s): I25.118 - Atherosclerotic heart disease of [place] coronary artery with other forms of angina pectoris (7) S/P CABG x 1: (8) Hypothyroidism (acquired): (9) Iron deficiency anemia, unspecified: Qualifiers: Iron deficiency anemia type: unspecified iron deficiency Qualified Code(s): D50.9 - Iron deficiency anemia, unspecified Plan 1. Increase Hydralazine to 25 mg PO TID 2. Would prefer Coreg to stay at 25 or 37.5 mg PO BID; I personally have seen more side effects with little additional benefit at higher doses 3. Could use clonidine 0.1 mg PO as needed for BPs >160 mmHg at home 4. Her CKD is no doubt contributing to her HTN; would recommend referral to nephrology to discuss additional measures to decrease BP (e.g loop diuretic? ultrafiltration?) 6. If renal Dopplers have not been performed, this would be useful to evaluate for renal artery stenosis 7. Would prefer to avoid stress test given her CKD and absence of chest pain when her BPs are relatively better controlled; in addition, the possibility of false positive results due to high BPs (including TID) is elevated. With her CKD and renal clearance, invasive coronary angiography would carry high risk of contrast induced nephropathy and need for dialysis 8. Treat non-cardiac comorbidities as appropriate Discussed with the patient, her , RN and Dr Rubi. Thank you for the consultation.
[2024-03-03 16:41] LABS: Glucometer 242 mg/dL (74-106)
[2024-03-03] MEDS: HYDRALAZINE HCL 25 MG TABLET PO ×2 (17:07→21:28)
[2024-03-03] MEDS: CARVEDILOL 25 MG TABLET PO (19:43)
[2024-03-03 20:54] LABS: Glucometer 187 mg/dL (74-106)
[2024-03-03] MEDS: ATORVASTATIN CALCIUM 40 MG TABLET 80 MG PO (21:28)
[2024-03-03] MEDS: INSULIN DETEMIR 300 UNIT/3 ML INSULN.PEN 26 UNIT SQ (21:29)
[2024-03-03] MEDS: HYDRALAZINE HCL 20 MG/ML VIAL 10 MG IVP (23:46)
[2024-03-04] VITALS (82 sets, daily range): BP systolic 135–216; BP diastolic 53–79; PULSE 60–87; TEMP 36.4–36.6; O2SAT 96–98
--- NOTE | 2024-03-04 | PCN_ITS ---
CARDIAC STRESS TEST Requesting Physician: Procedure Date: 03/04/2024 This was a Lexiscan stress test with myocardial fusion imaging performed on 03/04/2024 at the [facility]. Informed consent was obtained. An intravenous line was secured. The patient was attached to electrocardiographic monitoring. Lexiscan 0.4 mg were infused intravenously, followed by obtaining myocardial perfusion imaging. Resting heart rate was 67 BPM and maximum heart rate was 85 BPM. Resting blood pressure was 144/60 and maximum blood pressure was 156/68. Resting ECG showed sinus rhythm with no ST segment changes. ECG following infusion of Lexiscan showed evidence of [address] segment depressions noted in leads V4, V5, V6 and non-specific ST segment depressions seen in leads 2, 3 and AVF. Final ECG showed sinus rhythm with near resolution of ST segment changes. There were no significant arrhythmias seen. SUMMARY OF THE FINDINGS: 1. Positive Lexiscan stress test for ischemic ECG changes following infusion of Lexiscan. 2. Resting hypertension. 3. Myocardial perfusion images will be reported separately. [facility]
[2024-03-04] MEDS: CLONIDINE HCL 0.1 MG TABLET 0.100000000000000006 MG PO ×2 (02:18→07:26)
[2024-03-04] MEDS: HYDRALAZINE HCL 20 MG/ML VIAL 10 MG IVP (03:47)
[2024-03-04 04:56] LABS: Basophils Percent Auto 0.5 % (0.2-2.0); Eosinophils Absolute Auto 0.2 10^3/uL (0.0-0.7); Eosinophils Percent Auto 2.7 % (0.9-7.0); Hematocrit 26.8 % (36.0-48.0); Immature Granulocytes Abs Auto 0.03 10^3/uL (0.00-0.03); Immature Granulocytes Pct Auto 0.5 % (0.0-0.5); Lymphocytes Absolute Auto 1.9 10^3/uL (1.2-3.8); Lymphocytes Percent Auto 29.5 % (20.5-60.0); Mean Corpuscular HGB Conc 33.6 g/dL (29.9-35.2); Mean Corpuscular Hemoglobin 30.7 pg (26.7-34.0); Mean Corpuscular Volume 91.5 fL (81.0-99.0); Mean Platelet Volume 9.3 fL (9.5-13.5); Monocytes Absolute Auto 0.6 10^3/uL (0.3-0.8); Monocytes Percent Auto 9.6 % (1.7-12.0); Neutrophils Absolute Auto 3.7 10^3/uL (1.4-6.5); Neutrophils Percent Auto 57.2 % (43.0-75.0); Platelet Count 184 10^3/uL (150-450); Red Blood Count 2.93 10^6/uL (4.20-5.40); White Blood Count 6.4 10^3/uL (4.0-11.0)
[2024-03-04 05:28] LABS: Magnesium 1.7 mg/dL (1.8-2.4)
[2024-03-04 05:41] LABS: Alanine Aminotransferase 24 U/L (14-59); Albumin Globulin Ratio 0.9; Albumin Level 3.2 g/dL (3.4-5.0); Alkaline Phosphatase 82 U/L (46-116); Anion Gap 12.6; Aspartate Amino Transferase 17 U/L (15-37); BUN Creatinine Ratio 22.6; Bilirubin Total 0.6 mg/dL (0.2-1.0); Carbon Dioxide 23.8 mmol/L (21.0-32.0); Chloride 101 mmol/L (98-107); Estimated GFR (African America 31 (>=60); Estimated GFR (Non-African Ame 26 (>=60); Globulin 3.6 g/dL; Glucose 135 mg/dL (74-106); Potassium 4.4 mmol/L (3.5-5.1); Sodium 133 mmol/L (136-145); Total Protein 6.8 g/dL (6.4-8.2)
[2024-03-04] MEDS: LEVOTHYROXINE SODIUM 125 MCG TABLET 100 MCG PO (06:02)
[2024-03-04] MEDS: HYDRALAZINE HCL 25 MG TABLET PO ×3 (06:02→21:32)
[2024-03-04] MEDS: LIOTHYRONINE SODIUM 5 MCG TABLET PO (06:03)
--- NOTE | 2024-03-04 06:30 | NM_ITS ---
Patient Name: KYLAH BERGER MR#: [id number] : 1945 Exam Date: 03/04/2024 Ordering Doctor: DR Merrick Rubi . RADIOLOGY REPORT PROCEDURE: NM ARTURO PERF SPECT REST STR COMPARISON: None. INDICATIONS: CP/HTN Urgency TECHNIQUE: Exam Description: Stress/Rest one day protocol gated SPECT Rest Imagin.0 mCi Tc-99m Cardiolite IV on 03/04/2024 Stress Imaging 29.9 mCi Tc-99m Cardiolite IV on 03/04/2024 Exercise Protocol: 0.4 mg Lexiscan given IV Heart Rate (bpm): Rest: 67 Max: 85 PMHR: 60 Blood Pressure: Rest: 144/60 Max: 156/58 Symptoms: Rest and peak stress ECG findings were abnormal and the exercise portion of the study was abnormal per attending physician Dr. Hall due to EKG changes. For more details please see separate cardiac stress test report. FINDINGS: QUALITY OF STUDY: Good. PERFUSION DEFECT: LOCATION: Basal inferior. Basal inferolateral. Apical inferior. SIZE: Medium (3-4 segments). SEVERITY: Mild. TYPE: Persistent. WALL MOTION: Normal. LV SIZE: Normal. 78 mL. TID / TCD: None; 0.7 LVEF: Normal. Calculated EF 62%. SUMMARY: Myocardial perfusion imaging study has ABNORMAL findings. CONCLUSION: 1. Small area of mild decreased uptake in the inferior wall extending to the apex on stress images, stable on rest images. 2. No reversible ischemia 3. Abnormal exercise test secondary EKG changes Dictated by: Fabiano Christie MD on 03/04/2024 at 13:35 Approved by: Fabiano Christie MD on 03/04/2024 at 13:37
--- NOTE | 2024-03-04 07:42 | P.PN_ITS ---
Progress Note: Subjective Subjective Interval history: Patient still denies any more chest pain. Blood pressure up significantly last night. Given IV hydralazine and oral clonidine. Blood pressures improved this morning with diastolic in the 70s. Systolic still up somewhat at 160. Patient denies shortness of breath Exam Constitutional Vital Signs, click to edit/add: Last Vital Signs Temp 98 F 03/04/24 05:00 Pulse 87 03/04/24 06:00 Resp 18 03/04/24 05:00 BP 168/74 H 03/04/24 07:26 Pulse Ox 97 03/04/24 06:00 O2 Del Method Room Air 03/04/24 05:00 Documenting provider has reviewed patient's vital signs: yes Common normals: no apparent distress Chest Common normals: inspection of chest normal and palpation of chest normal Respiratory Common normals: normal respiratory effort and no retractions Cardio Common normals: regular rate, regular rhythm and no murmurs GI Common normals: Normal to inspection, nondistended, normoactive bowel sounds present, soft to palpation, non-tender, no hepatosplenomegaly and no masses Back & Pelvis Common normals: thoracic and lumbar spine normal to inspection Extremity Common normals: no clubbing, cyanosis or edema Progress Note: Objective Labs Labs: Short CBC 03/04/24 Range/Units 04:46 WBC 6.4 (4.0-11.0) 10^3/uL Hgb 9.0 L (12.0-16.0) g/dL Hct 26.8 L (36.0-48.0) % Plt Count 184 (150-450) 10^3/uL BMP 03/04/24 04:46 Sodium 133 L Potassium 4.4 Chloride 101 Carbon Dioxide 23.8 BUN 43.0 H Creatinine 1.90 H Glucose 135 H Calcium 9.0 Liver Function 03/04/24 Range/Units 04:46 Total Bilirubin 0.6 (0.2-1.0) mg/dL AST 17 (15-37) U/L ALT 24 (14-59) U/L Alkaline Phosphatase 82 (46-116) U/L Albumin 3.2 L (3.4-5.0) g/dL Urine 03/03/24 Range/Units 09:05 Urine Color Lt. yellow (YELLOW) Urine Clarity Clear (CLEAR) Urine pH 6.0 (5.0-9.0) Ur Specific [place] 1.010 (1.005-1.025) Urine Protein Negative (NEG/TRACE) mg/dL Urine Glucose (UA) Negative (NEGATIVE) mg/dL Progress Note: A&P Assessment and Plan (1) Hypertensive urgency: (2) Chest pain: Qualifiers: Chest pain type: unspecified Qualified Code(s): R07.9 - Chest pain, unspecified (3) (HFpEF) heart failure with preserved ejection fraction: Qualifiers: Heart failure chronicity: acute on chronic Qualified Code(s): I50.33 - Acute on chronic diastolic (congestive) heart failure (4) Chronic kidney disease: Qualifiers: Chronic kidney disease stage: stage 4 (severe) Qualified Code(s): N18.4 - Chronic kidney disease, stage 4 (severe) (5) Diabetes: Qualifiers: Diabetes mellitus type: type 2 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 transplanted heart: [place] heart Associated angina: with other forms of angina Qualified Code(s): I25.118 - Atherosclerotic heart disease of [place] coronary artery with other forms of angina pectoris (7) S/P CABG x 1: (8) Hypothyroidism (acquired): (9) Iron deficiency anemia, unspecified: Qualifiers: Iron deficiency anemia type: unspecified iron deficiency Qualified Code(s): D50.9 - Iron deficiency anemia, unspecified Plan Hypertensive emergency (On admission: SBP>180 with end organ finding of angina and headache): Blood pressure still up overnight. Blood pressure medications were adjusted yesterday and part of that may be due to the changes in medications, discussed at length yesterday benefits and risk of stress testing. Patient wishes to proceed with stress test. That will be started this morning. Prefer to keep blood pressure on the low side while doing stress testing to make sure there are no false positives related to blood pressure Chest pain: Troponins remain negative. Chest pain persisting. Discussed cardiology yesterday, see stress testing above Heart failure with preserved ejection fraction: BMPs remain normal Chronic kidney disease: Stage IV-her numbers are about as good as they have been in some time. Remained stable IDDM-sugars elevated yesterday but improved today. Hypomagnesemia-supplemented, check on level this a.m. GERD-continue with home medications Low back pain-continue with home medications Zboakmsobjlc-puil-yptfoxp daily History recurrent UTIs -check UA yesterday and is unremarkable, culture pending CAD (coronary artery disease): Status post CABG, symptoms feel similar to when she had her CABG completed. See above discussion for stress testing Hypothyroidism (acquired): TSH is low, T4 is normal, adjusted levothyroxine Iron deficiency anemia as well as anemia of chronic kidney disease-monitor daily Admission status: With the above management necessitating hospital stay, medically necessary treatment spanning more than 2 midnights. Stress testing today, will likely stay 1 more day secondary to significant elevation of blood pressure overnight.
[2024-03-04] MEDS: REGADENOSON 0.4 MG/5 ML SYRINGE 0.400000000000000022 MG IV (11:03)
[2024-03-04 11:21] LABS: Glucometer 197 mg/dL (74-106)
[2024-03-04] MEDS: INSULIN DETEMIR 300 UNIT/3 ML INSULN.PEN 26 UNIT SQ ×2 (11:30→21:34)
[2024-03-04] MEDS: OMEPRAZOLE 40 MG CAPSULE.DR PO (11:30)
[2024-03-04] MEDS: ASPIRIN 81 MG TAB.CHEW PO (11:30)
[2024-03-04] MEDS: FERROUS SULFATE 325 MG TABLET PO ×2 (11:30→21:33)
[2024-03-04] MEDS: CARVEDILOL 25 MG TABLET PO ×2 (11:30→18:24)
[2024-03-04] MEDS: ISOSORBIDE MONONITRATE 60 MG TAB.ER.24H 120 MG PO (11:31)
[2024-03-04] MEDS: HEPARIN SODIUM (PORCINE) 5,000 UNIT/ML VIAL 5000 UNIT SUBQ ×2 (11:31→21:33)
[2024-03-04] MEDS: INSULIN ASPART 300 UNIT/3 ML PEN SUBQ ×3 (11:31→21:33)
[2024-03-04] MEDS: MAGNESIUM OXIDE 400 MG TABLET PO ×2 (13:04→21:32)
[2024-03-04] MEDS: FUROSEMIDE 20 MG TABLET PO (13:04)
[2024-03-04 16:04] LABS: Glucometer 174 mg/dL (74-106)
--- NOTE | 2024-03-04 17:43 | PC.NURSE ---
pt taken to med surg room 218. tele maintained. pt oriented to room, belongings with pt. report given to nico dotson
[2024-03-04 20:48] LABS: Glucometer 187 mg/dL (74-106)
[2024-03-04] MEDS: ATORVASTATIN CALCIUM 40 MG TABLET 80 MG PO (21:32)
[2024-03-05] VITALS (7 sets, daily range): BP systolic 103–146; BP diastolic 61–65; PULSE 66–76; TEMP 36.7; O2SAT 95–97
[2024-03-05 04:56] LABS: Basophils Percent Auto 0.6 % (0.2-2.0); Eosinophils Absolute Auto 0.2 10^3/uL (0.0-0.7); Eosinophils Percent Auto 2.3 % (0.9-7.0); Hematocrit 26.2 % (36.0-48.0); Hemoglobin 8.8 g/dL (12.0-16.0); Immature Granulocytes Abs Auto 0.03 10^3/uL (0.00-0.03); Immature Granulocytes Pct Auto 0.5 % (0.0-0.5); Lymphocytes Absolute Auto 1.9 10^3/uL (1.2-3.8); Lymphocytes Percent Auto 29.8 % (20.5-60.0); Mean Corpuscular HGB Conc 33.6 g/dL (29.9-35.2); Mean Corpuscular Hemoglobin 30.7 pg (26.7-34.0); Mean Corpuscular Volume 91.3 fL (81.0-99.0); Mean Platelet Volume 9.9 fL (9.5-13.5); Monocytes Absolute Auto 0.7 10^3/uL (0.3-0.8); Monocytes Percent Auto 11.1 % (1.7-12.0); Neutrophils Absolute Auto 3.6 10^3/uL (1.4-6.5); Neutrophils Percent Auto 55.7 % (43.0-75.0); Platelet Count 190 10^3/uL (150-450); Red Blood Count 2.87 10^6/uL (4.20-5.40); Red Cell Distribution Width 15.2 % (11.0-15.0); White Blood Count 6.4 10^3/uL (4.0-11.0)
[2024-03-05 05:04] LABS: Magnesium 1.9 mg/dL (1.8-2.4)
[2024-03-05 05:22] LABS: Alanine Aminotransferase 35 U/L (14-59); Albumin Globulin Ratio 0.9; Albumin Level 3.2 g/dL (3.4-5.0); Alkaline Phosphatase 82 U/L (46-116); Anion Gap 13.3; Aspartate Amino Transferase 29 U/L (15-37); BUN Creatinine Ratio 26.6; Bilirubin Total 0.6 mg/dL (0.2-1.0); Calcium 8.9 mg/dL (8.5-10.1); Carbon Dioxide 24.8 mmol/L (21.0-32.0); Chloride 100 mmol/L (98-107); Estimated GFR (African America 31 (>=60); Estimated GFR (Non-African Ame 25 (>=60); Globulin 3.4 g/dL; Glucose 77 mg/dL (74-106); Potassium 4.1 mmol/L (3.5-5.1); Sodium 134 mmol/L (136-145); Total Protein 6.6 g/dL (6.4-8.2)
[2024-03-05] MEDS: HYDRALAZINE HCL 25 MG TABLET PO (06:11)
[2024-03-05] MEDS: CARVEDILOL 25 MG TABLET PO (06:11)
[2024-03-05] MEDS: LIOTHYRONINE SODIUM 5 MCG TABLET PO (06:11)
[2024-03-05] MEDS: LEVOTHYROXINE SODIUM 100 MCG TABLET PO (06:11)
--- NOTE | 2024-03-05 08:05 | P.DS_ITS ---
DS: Providers Provider Date of admission: 03/02/24 08:30 Primary care physician: Merrick Rubi MD Consults: 03/02/24 Consult to Pharmacy Routine Consulting Provider: Reason for consultation: Home Medication Adjusted Has provider been notified: Yes 03/02/24 08:34 Consult to Cardiology Routine Reason for consultation: hypertensive urgency Has provider been notified: No DS: Diagnosis Discharge Diagnosis (1) Hypertensive urgency: (2) Chest pain: Qualifiers: Chest pain type: unspecified Qualified Code(s): R07.9 - Chest pain, unspecified (3) (HFpEF) heart failure with preserved ejection fraction: Qualifiers: Heart failure chronicity: acute on chronic Qualified Code(s): I50.33 - Acute on chronic diastolic (congestive) heart failure (4) Chronic kidney disease: Qualifiers: Chronic kidney disease stage: stage 4 (severe) Qualified Code(s): N18.4 - Chronic kidney disease, stage 4 (severe) (5) Diabetes: Qualifiers: Diabetes mellitus complication status: with other specified complication 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 Diabetes mellitus type: type 2 Qualified Code(s): E11.69 - Type 2 diabetes mellitus with other specified complication (6) CAD (coronary artery disease): Qualifiers: Associated angina: with other forms of angina Coronary Disease- Associated Artery/Lesion type: [place] artery [place] vs. transplanted heart: [place] heart Qualified Code(s): I25.118 - Atherosclerotic heart disease of [place] coronary artery with other forms of angina pectoris (7) S/P CABG x 1: (8) Hypothyroidism (acquired): (9) Iron deficiency anemia, unspecified: Qualifiers: Iron deficiency anemia type: unspecified iron deficiency Qualified Code(s): D50.9 - Iron deficiency anemia, unspecified Plan Hypertensive emergency (On admission: SBP>180 with end organ finding of angina and headache): Improved at the time of discharge Chest pain: Resolved at the time of discharge Heart failure with preserved ejection fraction: Stable at the time of discharge Chronic kidney disease: Stable at the time of discharge IDDM-stable at the time of discharge Hypomagnesemia-stable at the time of discharge GERD-stable at the time of discharge Low back pain-stable at the time of discharge Hyponatremia-will at the time of discharge History recurrent UTIs -resolved at discharge CAD (coronary artery disease): Status post CABG-stable at the time of discharge Hypothyroidism (acquired): Follow as an outpatient Iron deficiency anemia as well as anemia of chronic kidney disease-follows an outpatient Admission status: With the above management necessitating hospital stay, medically necessary treatment spanning more than 2 midnights. Stress testing today, will likely stay 1 more day secondary to significant elevation of blood pressure overnight. ? DS: Summary Hospital Course Hospital Course: Patient presented to the emergency room with chest pain. Pressure type. Headache as well. Blood pressure found to be significant elevated with systolic blood pressure in the 200. Medications were adjusted and her headache and chest pain resolved. Blood pressure very labile the first day. With having hypotensive episodes in the 80s systolic. Case discussed with cardiology. Medications were adjusted. Timing of medications also adjusted. She did 30 hours prior to discharge another episode of significant hypertension. With systolics over 200. Responded well to hydralazine. The last 24 hours her blood pressures been fairly stable. She has no further chest pain or headache. Stress test was completed which showed no reversible ischemia on the dye portion and only minimal changes on the electrical portion of the stress test. This is felt to be blood pressure related as opposed to be ischemia related. Patient high risk for complications if she did require heart catheterization secondary to chronic kidney disease stage IV and age. At this point we will do medical management for high blood pressure as an outpatient. Medications to this. I will follow-up with patient in 4 days. Follow-up with cardiology based on blood pressure response as an outpatient. Status at Discharge Overall status at discharge: patient is back to baseline Time Spent with Patient Time attestation: Total time spent providing and/or coordinating discharge services: Time spent: greater than 30 minutes Exam Constitutional Vital Signs, click to edit/add: Last Vital Signs Temp 98.1 F 03/05/24 07:53 Pulse 66 03/05/24 07:53 Resp 18 03/05/24 07:53 BP 103/63 03/05/24 07:53 Pulse Ox 95 03/05/24 07:53 O2 Del Method Room Air 03/05/24 07:53 Documenting provider has reviewed patient's vital signs: yes Common normals: no apparent distress Chest Common normals: inspection of chest normal and palpation of chest normal Respiratory Common normals: normal respiratory effort and no retractions Cardio Common normals: regular rate, regular rhythm and no murmurs GI Common normals: Normal to inspection, nondistended, normoactive bowel sounds present, soft to palpation, non-tender, no hepatosplenomegaly and no masses Back & Pelvis Common normals: thoracic and lumbar spine normal to inspection Extremity Common normals: no clubbing, cyanosis or edema DS: Data Data Completed and Pending Labs on day of discharge: Labs from last 24 hours 03/05/24 03/04/24 03/04/24 04:16 20:46 16:02 WBC 6.4 RBC 2.87 L Hgb 8.8 L Hct 26.2 L MCV 91.3 MCH 30.7 MCHC 33.6 RDW 15.2 H Plt Count 190 MPV 9.9 Neut % (Auto) 55.7 Lymph % (Auto) 29.8 [place] % (Auto) 11.1 Eos % (Auto) 2.3 Baso % (Auto) 0.6 Neut # (Auto) 3.6 Lymph # (Auto) 1.9 [place] # (Auto) 0.7 Eos # (Auto) 0.2 Baso # (Auto) 0.0 Abs Immat Gran (auto) 0.03 Imm/Tot Granulo (auto) 0.5 Sodium 134 L Potassium 4.1 Chloride 100 Carbon Dioxide 24.8 Anion Gap 13.3 BUN 51.0 H Creatinine 1.92 H Est GFR ( Amer) 31 L Est GFR (Non-Af Amer) 25 L BUN/Creatinine Ratio 26.6 Glucose 77 Calcium 8.9 Magnesium 1.9 Total Bilirubin 0.6 AST 29 ALT 35 Alkaline Phosphatase 82 NT-Pro-B Natriuret Pep 667.0 Total Protein 6.6 Albumin 3.2 L Globulin 3.4 Albumin/Globulin Ratio 0.9 POC Glucose 187 H 174 H 03/04/24 11:19 WBC RBC Hgb Hct MCV MCH MCHC RDW Plt Count MPV Neut % (Auto) Lymph % (Auto) [place] % (Auto) Eos % (Auto) Baso % (Auto) Neut # (Auto) Lymph # (Auto) [place] # (Auto) Eos # (Auto) Baso # (Auto) Abs Immat Gran (auto) Imm/Tot Granulo (auto) Sodium Potassium Chloride Carbon Dioxide Anion Gap BUN Creatinine Est GFR ( Amer) Est GFR (Non-Af Amer) BUN/Creatinine Ratio Glucose Calcium Magnesium Total Bilirubin AST ALT Alkaline Phosphatase NT-Pro-B Natriuret Pep Total Protein Albumin Globulin Albumin/Globulin Ratio POC Glucose 197 H Discharge Plan Discharge Disposition: Home, Self-Care Condition: Good Discharge Medications: New carvedilol 25 mg Tablet 25 mg PO BIDWM@0700,1900 Qty: 60 0RF clonidine HCl 0.1 mg Tablet 0.1 mg PO Q4H PRN (Reason: Hypertension) Qty: 60 11RF hydralazine 25 mg Tablet 25 mg PO TID Qty: 90 11RF liothyronine 5 mcg Tablet 5 mcg PO ACB Qty: 60 0RF tramadol 50 mg Tablet 25 mg PO Q6H PRN (Reason: Pain) Qty: 60 0RF aspirin 81 mg Tablet,Chewable 81 mg PO QD Qty: 30 11RF levothyroxine 100 mcg capsule 100 mcg PO DAILY Qty: 30 11RF isosorbide mononitrate 120 mg tablet extended release 24 hr 120 mg PO QAM Qty: 30 11RF Continued atorvastatin 80 mg tablet 80 mg PO .QHS insulin aspart U-100 [Novolog FlexPen U-100 Insulin] 100 unit/mL (3 mL) insulin pen 12 unit SUBCUT DAILY Rx Instructions: 12 units am, 16units at lunch and 22 units in pm magnesium oxide 400 mg (241.3 mg magnesium) tablet 400 mg PO TID pantoprazole 40 mg tablet,delayed release (DR/EC) 40 mg PO .QD ferrous sulfate 325 mg (65 mg iron) tablet 325 mg PO BID furosemide 20 mg tablet 20 mg PO DAILY allopurinol 100 mg Tablet 50 mg PO Q48H Qty: 30 11RF Levemir FlexPen 100 unit/mL (3 mL) Insulin Pen 26 unit subcut BID Qty: 15 11RF Discontinued liothyronine 5 mcg tablet 10 mcg PO .QD clonidine HCl 0.1 mg Tablet 0.2 mg PO BID Qty: 120 11RF levothyroxine 125 mcg tablet 125 mcg PO DAILY carvedilol 25 mg Tablet 50 mg PO BID isosorbide mononitrate 60 mg Tablet Extended Release 24 Hr 60 mg PO QD Qty: 30 11RF Print Language: Bhutanese Forms: Portal Instructions Follow Up Appointments: Dr Rubi March 09 @9:15
[2024-03-05] MEDS: ASPIRIN 81 MG TAB.CHEW PO (09:17)
[2024-03-05] MEDS: MAGNESIUM OXIDE 400 MG TABLET PO (09:17)
[2024-03-05] MEDS: FUROSEMIDE 20 MG TABLET PO (09:17)
[2024-03-05] MEDS: FERROUS SULFATE 325 MG TABLET PO (09:17)
[2024-03-05] MEDS: ISOSORBIDE MONONITRATE 60 MG TAB.ER.24H 120 MG PO (09:17)
[2024-03-05] MEDS: OMEPRAZOLE 40 MG CAPSULE.DR PO (09:17)
[2024-03-05] MEDS: INSULIN DETEMIR 300 UNIT/3 ML INSULN.PEN 26 UNIT SQ (09:18)
--- NOTE | 2024-03-05 09:20 | SWNOTE1 ---
2nd notice of Important Message from [employer] reviewed and discussed with patient. Pt. verbalized understanding and still had no questions at this time.
--- NOTE | 2024-03-06 13:34 | CM.DCFOLLOWU ---
Person spoke with: patient How are you feeling? well How is your pain? none Did you understand your discharge instructions? yes Do you have any questions about your discharge instructions? no Were you given any prescriptions at discharge? yes Were you able to get your prescriptions filled? yes Do you understand how to take your medications as ordered? yes Do you have any questions about your follow up appointment and do you plan to keep your follow up appointment? no questions, reviewed follow ups Is there anything else that you would like to discuss? no Questions/Comments/Concerns/Other: NO
== END 2024-03-05 10:11 | disposition home or self-care (01) | DRG 304 ==
LOC: ER 21:39 → ICU 23:14 → MS 03-04 17:47
PROVIDERS: Family Medicine; Physician Assistant; Registered Nurse; Admitting Provider Family Medicine; Emergency Provider Emergency Medicine; PCP Family Medicine; Visit Provider Family Medicine
DX: I16.0 Hypertensive urgency (principal); I50.33 Acute on chronic diastolic (congestive) heart failure; N18.4 Chronic kidney disease, stage 4 (severe); I13.0 Hypertensive heart and chronic kidney disease with heart failure and stage 1 through stage 4 chronic kidney disease, or unspecified chronic kidney disease; E11.22 Type 2 diabetes mellitus with diabetic chronic kidney disease; E11.69 Type 2 diabetes mellitus with other specified complication; I25.118 Atherosclerotic heart disease of native coronary artery with other forms of angina pectoris; E03.9 Hypothyroidism, unspecified; D50.9 Iron deficiency anemia, unspecified; E78.00 Pure hypercholesterolemia, unspecified; I73.00 Raynaud's syndrome without gangrene; R07.89 Other chest pain; D63.1 Anemia in chronic kidney disease; E83.42 Hypomagnesemia; K21.9 Gastro-esophageal reflux disease without esophagitis; M54.50 Low back pain, unspecified; Z95.1 Presence of aortocoronary bypass graft; Z79.899 Other long term (current) drug therapy; Z79.4 Long term (current) use of insulin; Z98.890 Other specified postprocedural states; Z79.890 Hormone replacement therapy; Z87.891 Personal history of nicotine dependence; Z90.49 Acquired absence of other specified parts of digestive tract; Z90.710 Acquired absence of both cervix and uterus; Z85.828 Personal history of other malignant neoplasm of skin; Z87.440 Personal history of urinary (tract) infections
CPT/HCPCS: 36415; 71045; 78452; 80048; 80053; 80061; 81001; 82948; 83036; 83735; 83880; 84439; 84443; 84484; 85025; 85027; 85610; 87086; 93005; 93017; 93308; 96365; 96366; 96368; 96372; 96375; 96376; 99285; A9500; G0378; J2785

== ENCOUNTER 2024-05-28 09:09 | Outpatient (OUT) | payer MEDICARE, SELFPAY ==
--- OUTSIDE RECORDS SUMMARY | 2024-05-28 09:30 | XMS_ITS | CCD ---
Author Organization [facility] Care Team Providers Care Station Baggage Agent Name Role Phone PHYSICIAN, DEFAULT Unavailable Unavailable PHYSICIAN, DEFAULT Unavailable Unavailable Doreen, Ron Unavailable Mary Anne Ackerman Unavailable Jana Monson Unavailable FIORELLAY ., DR [...] RON Attending Unavailable DOREEN, RON Admitting Unavailable Fiorellay Dhruv NESS Primary Care Provider [phone] THUAN DELVALLE Attending Unavailable DHRUV RUBI Referring Unavailable DHRUV RUBI Primary Care Unavailable ELTAHAWY, EHAB Attending Unavailable ELTAHAWY, EHAB Attending Unavailable CRESPO, GA H Attending Unavailable CRESPO, GA H Attending Unavailable PETITTI, GREG A Attending Unavailable CRESPO, GA H Attending Unavailable PETITTI, GREG A Attending Unavailable CRESPO, GA H Attending Unavailable PETITTI, GREG A Attending Unavailable PETITTI, GREG A Attending Unavailable Allergies Allergy Classification Reported Allergen(s) Allergy Type Date of Onset Reaction(s) Facility (20 sources) amLODIPine; Translations: [AMLODIPINE] Drug Allergy 03-28-20 05 [facility] (20 sources) Amoxicillin / Clavulanate Drug Allergy 11-23-19 21 [facility] Other (20 sources) Contrast media Propensity to adverse reactions Unknown [facility] Other (2 sources) Doxazosin; Translations: [doxazosin] Drug Allergy Unknown [facility] Other (20 sources) Sulfamethoxazole / Trimethoprim Drug Allergy 11-23-19 21 Rash [facility] Other (20 sources) Doxazosin; Translations: [DOXAZOSIN] Drug Allergy 11-23-19 21 Unknown [facility] Other (9 sources) Amoxicillin / Clavulanate; Translations: [Augmentin] Drug Allergy 11-16-19 16 Unknown [facility] Repository (1 source) amLODIPine Drug Allergy 04-25-20 14 [facility] Repository (1 source) Sulfamethoxazole / Trimethoprim Drug Allergy 03-09-20 13 [facility] Repository (3 sources) Iodinated Contrast Media; Translations: [IODINATED CONTRAST MEDIA] Propensity to adverse reactions to drug 11-23-19 21 [facility] (2 sources) Sulfamethoxazole / Trimethoprim; Translations: [SULFAMETHOXAZOLE-T RIMETHOPRIM] Drug Allergy 08-04-20 15 [facility] Repository (2 sources) AMOXICILLIN-POT CLAVULANATE; Translations: [AMOXICILLIN-POT CLAVULANATE] Propensity to adverse reactions to drug (disorder) 11-23-19 21 [facility] Repository (1 source) Sulfamethoxazole; Translations: [SULFAMETHOXAZOLE] Drug Allergy 03-12-20 23 [facility] Repository Medications Current Medications Medication Drug Class(es) [...] coronary artery bypass graft , Atherosclerosis of [place] coronary artery of [place] heart without angina pectoris , Paroxysmal atrial [...] (LIPITOR) 80 mg tablet Indications: Atherosclerosis of [place] coronary artery of [place] heart without angina pectoris , H/O four [...] Active docusate sodium 50 mg / sennosides, mcc 8.6 mg oral tablet (5 sources) take 1 tablet by mouth every twelve hours Sennosides-Docusate Sodium 8.6-50 MG 1 tablet in the evening as needed Orally every 12 hours Active epoetin johnna-epbx 68021 UNT/ML Injectable Solution [Retacrit] (14 sources) Retacrit 45306 U NIT/ML as directed Injection Active ferrous [...] 0 12/05/2021 Active take 2 tablets by [facility] every twenty-four hours Liothyronine Sodium 5 MCG 2 tablets on a n empty stomach Orally Once a day Active take 2 tablets by [facility] every twenty-four hours lisinopril 10 [...] 01/15/2022 Active take 1 tablet by enzo every [...] in the morning. 0 12/19/2020 Active retacrit 50908 unit/ml solution (5 sources) Retacrit 03900 UNIT/ML as directed Injection Active Sennosides-Docusate Sodium [...] Coronary atherosclerosis; Translations: [Atherosclerotic heart disease of [place] coronary artery without angina pectoris] Onset: 1 [...] Value Interpretation Reference Range Facility Office Visiton 05-11-2024 Follow-up visit [id number] Garima Robin 1945 F Date Provider Department Center 05/11/2024 271-[facility]ATH[facility] No family history on file Level of Service:79345 [place] OFFICE/OUTPATIENT ESTABLISHED MOD MDM 30 MIN Normal [facility] Office Visiton 02-10-2024 Follow-up visit [id number] Garima Robin 1945 F Date Provider Department [place] 02/10/2024 CARLIE TORRES [facility] No family history on file Level of Service:50134 [place] OFFICE/OUTPATIENT ESTABLISHED MOD MDM 30 MIN Normal [facility] HEMOGRAM AND PLATELon 2022 Hematocrit (Bld) [Volume fraction] 28.8 % Critically low 36.0-48.0 [facility] Comment on above: Performed By: #### H H #### [facility] [address] [place] [address] Dr. Ember Teague Hemoglobin (Bld) [Mass/Vol] 9.6 g/dL Critically low 12.0-16.0 [facility] Comment on above: Performed By: #### H H #### [facility] [address] [address] [address] Ember Teague MCH (RBC) [Entitic mass] 30.7 pg Normal 26.7-34.0 [facility] Comment on above: Performed By: #### H H #### [facility] [address] [address] [address] Ember Teague MCHC (RBC) [Mass/Vol] 33.3 g/dL Normal 29.9-35.2 [facility] Comment on above: Performed By: #### H H #### [facility] [address] [address] [address] Ember Teague MCV (RBC) [Entitic vol] 92.0 fL Normal 81.0-99.0 [facility] Comment on above: Performed By: #### H H #### [facility] [address] [place] [address] Dr. Ember Teague PLT 214 103/ul Normal 150-450 [facility] Comment on above: Performed By: #### H H #### [facility] [address] [address] [address] Ember Teague RBC 3.13 106/ul Critically low 4.20-5.40 [facility] Comment on above: Performed By: #### H H #### [facility] [address] [address] [address] Ember Teague WBC 7.4 103/ul Normal 4.0-11.0 [facility] Comment on above: Performed By: #### H H #### [facility] [address] [place] [address] Dr. Ember Teague MAGNESIUMon 01-22-2023 Magnesium [Mass/Vol] 1.8 mg/dL Normal 1.8-2.4 [facility] Comment on above: Performed By: #### M G, RENAL #### [facility] [address] [place] [address] Dr. Ember Teague RENAL FUNCTION PANELon 01-22 Albumin [Mass/Vol] 3.6 g/dL Normal 3.4-5.0 [facility] Comment on above: Performed By: #### M G, RENAL #### [facility] [address] [address] [address] Ember Teague Calcium [Mass/Vol] 9.7 mg/dL Normal 8.5-10.1 [facility] Comment on above: Performed By: #### M G, RENAL #### [facility] [address] [place] [address] Dr. Ember Teague Chloride [Moles/Vol] 105 mmol/L Normal 98-107 [facility] Comment on above: Performed By: #### M G, RENAL #### [facility] [address] [address] [address] Ember Teague CO2 [Moles/Vol] 22.6 mmol/L Normal 21.0-32.0 [facility] Comment on above: Performed By: #### M G, RENAL #### [facility] [address] [address] [address] Ember Teague Creatinine [Mass/Vol] 2.18 mg/dL Critically high 0.55-1.02 [facility] Comment on above: Performed By: #### M G, RENAL #### [facility] [address] [address] [address] Ember Teague EGFR-AF QATARI 26 mL/min/1.73m2 Critically low >=60 [facility] Comment on above: Performed By: #### M G, RENAL #### [facility] [address] [address] [address] Ember Teague EGFR-NON AF QATARI 22 mL/min/1.73m2 Critically low >=60 [facility] Comment on above: Performed By: #### M G, RENAL #### [facility] [address] [address] [address] Ember Teague Glucose [Mass/Vol] 134 mg/dL Critically high 74-106 [facility] Comment on above: Performed By: #### M G, RENAL #### [facility] [address] [address] [address] Ember Teague Phosphate [Mass/Vol] 4.6 mg/dL Normal 2.6-4.7 [facility] Comment on above: Performed By: #### M G, RENAL #### [facility] [address] [place] [address] Dr. Ember Teague Potassium [Moles/Vol] 5.1 mmol/L Normal 3.5-5.1 [facility] Comment on above: Performed By: #### M G, RENAL #### [facility] [address] [place] [address] Dr. Ember Teague Sodium [Moles/Vol] 138 mmol/L Normal 136-145 [facility] Comment on above: Performed By: #### M G, RENAL #### [facility] [address] [address] [address] Ember Teague Urea nitrogen [Mass/Vol] 61.0 mg/dL Critically high 7.0-18.0 [facility] Comment on above: Performed By: #### M G, RENAL #### [facility] [address] [address] [address] Ember Teague MG MAMM SCREEN 3D MAY CADon 12-17-2022 MG MAMM SCREEN 3D MAY CAD Patient: KYLAH ROBIN Exam Date: 12/17/2022 : 1945 Gender:F Ordering : DR DHRUV RUBI . Admission #: [id number] Family : Order #: [id number] CLICK HERE TO VIEW EXAM RADIOLOGY REPORT [...] lung cancer at age 61. LOCATION: [facility] BREAST COMPOSITION: Scattered areas fibroglandular [...] MD on 12/17/2022 at 11:59 Normal [facility] FERRITINon 12-10-2022 Ferritin [Mass/Vol] 681.0 ng/mL Critically high 8.0-252.0 [facility] Comment on above: Performed By: #### P THINT #### [facility] [address] [address] [address] Ember Teague HEMOGRAM AND PLATELon 2022 Hematocrit (Bld) [Volume fraction] 27.1 % Critically low 36.0-48.0 [facility] Comment on above: Performed By: #### C VDTBH #### [facility] [address] [address] [address] Ember Teague Hemoglobin (Bld) [Mass/Vol] 9.7 g/dL Critically low 12.0-16.0 [facility] Comment on above: Performed By: #### C VDTBH #### [facility] [address] [place] [address] Dr. Ember Teague MCH (RBC) [Entitic mass] 31.4 pg Normal 26.7-34.0 [facility] Comment on above: Performed By: #### C VDTBH #### [facility] [address] [place] [address] Dr. Ember Teague MCHC (RBC) [Mass/Vol] 35.8 g/dL Critically high 29.9-35.2 [facility] Comment on above: Performed By: #### C VDTBH #### [facility] [address] [place] [address] Dr. Ember Teague MCV (RBC) [Entitic vol] 87.7 fL Normal 81.0-99.0 [facility] Comment on above: Performed By: #### C VDTBH #### [facility] [address] [place] [address] Dr. Ember Teague PLT 218 103/ul Normal 150-450 [facility] Comment on above: Performed By: #### C VDTBH #### [facility] [address] [place] [address] Dr. Ember Teague RBC 3.09 106/ul Critically low 4.20-5.40 [facility] Comment on above: Performed By: #### C VDTBH #### [facility] [address] [place] [address] Dr. Ember Teague WBC 6.6 103/ul Normal 4.0-11.0 [facility] Comment on above: Performed By: #### C VDTBH #### [facility] [address] [place] [address] Dr. Ember Teague IRON AND TIBCon 12-10-2022 % SATURATION 30.2 % Normal [facility] Comment on above: Performed By: #### P THINT #### [facility] [address] [place] [address] Dr. Ember Teague Iron [Mass/Vol] 84.0 ug/dL Normal 50.0-170.0 [facility] Comment on above: Performed By: #### P THINT #### [facility] [address] [place] [address] Dr. Ember Teague TIBC DIRECT 278.0 ug/dL Normal 250.0-450.0 [facility] Comment on above: Performed By: #### P THINT #### [facility] [address] [place] [address] Dr. Ember Teague XR FOOT MAY MIN [...] BENI APARICIO Date: 2022-11-20 14:03 Normal [facility] HEMOGRAM AND PLATELon 2022 Hematocrit (Bld) [Volume fraction] 27.7 % Critically low 36.0-48.0 [facility] Comment on above: Performed By: #### R ENAL #### [facility] [address] [address] [address] Ember Teague Hemoglobin (Bld) [Mass/Vol] 10.0 g/dL Critically low 12.0-16.0 [facility] Comment on above: Performed By: #### R ENAL #### [facility] [address] [place] [address] Dr. Ember Teague MCH (RBC) [Entitic mass] 31.6 pg Normal 26.7-34.0 [facility] Comment on above: Performed By: #### R ENAL #### [facility] [address] [address] [address] Ember Teague MCHC (RBC) [Mass/Vol] 36.1 g/dL Critically high 29.9-35.2 [facility] Comment on above: Performed By: #### R ENAL #### [facility] [address] [address] [address] Ember Teague MCV (RBC) [Entitic vol] 87.7 fL Normal 81.0-99.0 [facility] Comment on above: Performed By: #### R ENAL #### [facility] [address] [address] [address] Ember Teague PLT 182 103/ul Normal 150-450 [facility] Comment on above: Performed By: #### R ENAL #### [facility] [address] [place] [address] Dr. Ember Teague RBC 3.16 106/ul Critically low 4.20-5.40 [facility] Comment on above: Performed By: #### R ENAL #### [facility] [address] [place] [address] Dr. Ember Teague WBC 6.8 103/ul Normal 4.0-11.0 [facility] Comment on above: Performed By: #### R ENAL #### [facility] [address] [place] [address] Dr. Ember Teague PROF CHEM 8 (BAS METB)on Anion gap [Moles/Vol] 17.6 mmol/L Normal [facility] Comment on above: Performed By: #### C VDTBH #### [facility] [address] [place] [address] Dr. Ember Teague Calcium [Mass/Vol] 9.0 mg/dL Normal 8.5-10.1 [facility] Comment on above: Performed By: #### C VDTBH #### [facility] [address] [place] [address] Dr. Ember Teague Chloride [Moles/Vol] 104 mmol/L Normal 98-107 [facility] Comment on above: Performed By: #### C VDTBH #### [facility] [address] [address] [address] Ember Teague CO2 [Moles/Vol] 22.2 mmol/L Normal 21.0-32.0 [facility] Comment on above: Performed By: #### C VDTBH #### [facility] [address] [address] [address] Ember Teague Creatinine [Mass/Vol] 2.03 mg/dL Critically high 0.55-1.02 [facility] Comment on above: Performed By: #### C VDTBH #### [facility] [address] [address] [address] Ember Teague EGFR-AF QATARI 29 mL/min/1.73m2 Critically low >=60 [facility] Comment on above: Performed By: #### C VDTBH #### [facility] [address] [address] [address] Ember Teague EGFR-NON AF QATARI 24 mL/min/1.73m2 Critically low >=60 [facility] Comment on above: Performed By: #### C VDTBH #### [facility] [address] [address] [address] Ember Teague Glucose [Mass/Vol] 154 mg/dL Critically high 74-106 [facility] Comment on above: Performed By: #### C VDTBH #### [facility] [address] [address] [address] Ember Teague Potassium [Moles/Vol] 4.8 mmol/L Normal 3.5-5.1 [facility] Comment on above: Performed By: #### C VDTBH #### [facility] [address] [address] [address] Ember Teague Sodium [Moles/Vol] 139 mmol/L Normal 136-145 [facility] Comment on above: Performed By: #### C VDTBH #### [facility] [address] [address] [address] Ember Teague Urea nitrogen [Mass/Vol] 43.0 mg/dL Critically high 7.0-18.0 [facility] Comment on above: Performed By: #### C VDTBH #### [facility] [address] [address] [address] Ember Teague Urea nitrogen/Creatinine [Mass ratio] 21.2 mg/mg Normal [facility] Comment on above: Performed By: #### C VDTBH #### [facility] [address] [address] [address] Ember Teague CULTURE SPUTUMon 10-24-2022 CULTURE SPUTUM Culture Observations : Beta lactamase positive Isolate 1 Haemophilus influenzae Moderate growth of Normal [facility] Comment on above: Performed By: #### R ENAL #### [facility] [address] [address] [address] Ember Teague SPUTUM GRAM STAINon 10-24-19 COMMENTS Normal [facility] Comment on above: Performed By: #### R ENAL #### [facility] [address] [address] [address] Ember Teague DIPHTHEROIDS Normal [facility] Comment on above: Performed By: #### R ENAL #### [facility] [address] [address] [address] Ember Teague EPITHELIALS >25 Normal [facility] Comment on above: Performed By: #### R ENAL #### [facility] [address] [address] [address] Ember Teague FUNGAL ELEMENTS Normal [facility] Comment on above: Performed By: #### R ENAL #### [facility] [address] [address] [address] Ember Teague GRAM NEG BACILLI Normal [facility] Comment on above: Performed By: #### R ENAL #### [facility] [address] [address] [address] Ember Teague GRAM NEG DIPPLOCOCCI FEW Normal [facility] Comment on above: Performed By: #### R ENAL #### [facility] [address] [address] [address] Ember Teague GRAM POS BACILLI FEW Normal [facility] Comment on above: Performed By: #### R ENAL #### [facility] [address] [address] [address] Ember Teague GRAM POSITIVE COCCI MANY Normal [facility] Comment on above: Performed By: #### R ENAL #### [facility] [address] [address] [address] Ember Teague WBC (Bld) [#/Vol] 10*3/uL Normal [facility] Comment on above: Performed By: #### R ENAL #### [facility] [address] [place] [address] Dr. Ember Teague XR CHEST 2 Von [...] ANGELINA BRISENO Date: 2022-10-24 16:22 Normal [facility] FERRITINon 09-18-2022 Ferritin [Mass/Vol] 612.0 ng/mL Critically high 8.0-252.0 [facility] Comment on above: Performed By: #### F ERR, FETIBC #### [facility] [address] [place] [address] Dr. Ember Teague HEMOGRAM AND PLATELon 2021 Hematocrit (Bld) [Volume fraction] 28.1 % Critically low 36.0-48.0 [facility] Comment on above: Performed By: #### C BC #### [facility] [address] [place] [address] Dr. Ember Teague Hemoglobin (Bld) [Mass/Vol] 9.7 g/dL Critically low 12.0-16.0 [facility] Comment on above: Performed By: #### C BC #### [facility] [address] [place] [address] Dr. Ember Teague MCH (RBC) [Entitic mass] 31.3 pg Normal 26.7-34.0 [facility] Comment on above: Performed By: #### C BC #### [facility] [address] [place] [address] Dr. Ember Teague MCHC (RBC) [Mass/Vol] 34.5 g/dL Normal 29.9-35.2 [facility] Comment on above: Performed By: #### C BC #### [facility] [address] [place] [address] Dr. Ember Teague MCV (RBC) [Entitic vol] 90.6 fL Normal 81.0-99.0 [facility] Comment on above: Performed By: #### C BC #### [facility] [address] [place] [address] Dr. Ember Teague PLT 183 103/ul Normal 150-450 [facility] Comment on above: Performed By: #### C BC #### [facility] [address] [place] [address] Dr. Ember Teague RBC 3.10 106/ul Critically low 4.20-5.40 [facility] Comment on above: Performed By: #### C BC #### [facility] [address] [place] [address] Dr. Ember Teague WBC 7.2 103/ul Normal 4.0-11.0 [facility] Comment on above: Performed By: #### C BC #### [facility] [address] [place] [address] Dr. Ember Teague IRON AND TIBCon 09-18-2022 % SATURATION 36.0 % Normal [facility] Comment on above: Performed By: #### F ERR, FETIBC #### [facility] [address] [place] [address] Dr. Ember Teague Iron [Mass/Vol] 77.0 ug/dL Normal 50.0-170.0 [facility] Comment on above: Performed By: #### F ERR, FETIBC #### [facility] [address] [place] [address] Dr. Ember Teague TIBC DIRECT 214.0 ug/dL Critically low 250.0-450.0 [facility] Comment on above: Performed By: #### F ERR, FETIBC #### [facility] [address] [place] [address] Dr. Ember Teague RENAL FUNCTION PANELon 09-18 Albumin [Mass/Vol] 3.7 g/dL Normal 3.4-5.0 [facility] Comment on above: Performed By: #### R ENAL #### [facility] [address] [address] [address] Ember Teague Calcium [Mass/Vol] 9.5 mg/dL Normal 8.5-10.1 [facility] Comment on above: Performed By: #### R ENAL #### [facility] [address] [place] [address] Dr. Ember Teague Chloride [Moles/Vol] 103 mmol/L Normal 98-107 [facility] Comment on above: Performed By: #### R ENAL #### [facility] [address] [place] [address] Dr. Ember Teague CO2 [Moles/Vol] 21.1 mmol/L Normal 21.0-32.0 [facility] Comment on above: Performed By: #### R ENAL #### [facility] [address] [place] [address] Dr. Ember Teague Creatinine [Mass/Vol] 1.85 mg/dL Critically high 0.55-1.02 [facility] Comment on above: Performed By: #### R ENAL #### [facility] [address] [place] [address] Dr. Ember Teague EGFR-AF QATARI 32 mL/min/1.73m2 Critically low >=60 [facility] Comment on above: Performed By: #### R ENAL #### [facility] [address] [place] [address] Dr. Ember Teague EGFR-NON AF QATARI 26 mL/min/1.73m2 Critically low >=60 [facility] Comment on above: Performed By: #### R ENAL #### [facility] [address] [place], [place] [id number] Dr. Ember Teague Glucose [Mass/Vol] 183 mg/dL Critically high 74-106 [facility] Comment on above: Performed By: #### R ENAL #### [facility] [address] [address] [address] Ember Teague Phosphate [Mass/Vol] 3.7 mg/dL Normal 2.6-4.7 [facility] Comment on above: Performed By: #### R ENAL #### [facility] [address] [address] [address] Ember Teague Potassium [Moles/Vol] 4.9 mmol/L Normal 3.5-5.1 [facility] Comment on above: Performed By: #### R ENAL #### [facility] [address] [place] [address] Dr. Ember Teague Sodium [Moles/Vol] 138 mmol/L Normal 136-145 [facility] Comment on above: Performed By: #### R ENAL #### [facility] [address] [place] [address] Dr. Ember Teague Urea nitrogen [Mass/Vol] 40.0 mg/dL Critically high 7.0-18.0 [facility] Comment on above: Performed By: #### R ENAL #### [facility] [address] [place] [address] Dr. Ember Teague CULTURE URINEon 09-15-2022 CULTURE [...] Trimethoprim/Sulfamet hoxazole <=20 S F Normal [facility] Comment on above: Performed By: #### R ENAL #### [facility] [address] [place] [address] Dr. Ember Teague BNPon 09-11-2022 Natriuretic peptide B (Bld) [Mass/Vol] 408.0 pg/mL Normal <=1,800.0 [facility] Comment on above: Performed By: #### P THINT #### [facility] [address] [place] [address] Dr. Ember Teague CBC AUTO DIFFon 09-11-2022 BASO # 0.0 103/ul Normal 0.0-0.1 [facility] Comment on above: Performed By: #### C BC #### [facility] [address] [place] [address] Dr. Ember Teague Basophils/100 WBC (Bld) 0.3 % Normal 0.2-2.0 [facility] Comment on above: Performed By: #### C BC #### [facility] [facility] [address] [place] [address] Dr. Ember Teague EO # 0.1 103/ul Normal 0.0-0.7 [facility] Comment on above: Performed By: #### C BC #### [facility] [address] [place] [address] Dr. Ember Teague Eosinophils/100 WBC (Bld) 1.9 % Normal 0.9-7.0 [facility] Comment on above: Performed By: #### C BC #### [facility] [address] [place] [address] Dr. Ember Teague Erythrocyte distribution width (RBC) [Ratio] 15.2 % Critically high 11.0-15.0 [facility] Comment on above: Performed By: #### C BC #### [facility] [address] [place] [address] Dr. Ember Teague Hematocrit (Bld) [Volume fraction] 26.6 % Critically low 36.0-48.0 [facility] Comment on above: Performed By: #### C BC #### [facility] [address] [place] [address] Dr. Ember Teague Hemoglobin (Bld) [Mass/Vol] 9.0 g/dL Critically low 12.0-16.0 [facility] Comment on above: Performed By: #### C BC #### [facility] [address] [place] [address] Dr. Ember Teague IG # 0.02 10e3/ul Normal 0.00-0.03 [facility] Comment on above: Performed By: #### C BC #### [facility] [address] [place] [address] Dr. Ember Teague IG % 0.3 % Normal 0.0-0.5 [facility] Comment on above: Performed By: #### C BC #### [facility] [address] [place] [address] Dr. Ember Teague LYMPH # 1.9 103/ul Normal 1.2-3.8 [facility] Comment on above: Performed By: #### C BC #### [facility] [address] [place] [address] Dr. Ember Teague Lymphocytes/100 WBC (Bld) 32.4 % Normal 20.5-60.0 [facility] Comment on above: Performed By: #### C BC #### [facility] [address] [place] [address] Dr. Ember Teague MANUAL DIFF REQ NO Normal [facility] Comment on above: Performed By: #### C BC #### [facility] [address] [place] [address] Dr. Ember Teague MCH (RBC) [Entitic mass] 31.1 pg Normal 26.7-34.0 [facility] Comment on above: Performed By: #### C BC #### [facility] [address] [place] [address] Dr. Ember Teague MCHC (RBC) [Mass/Vol] 33.8 g/dL Normal 29.9-35.2 [facility] Comment on above: Performed By: #### C BC #### [facility] [address] [place] [address] Dr. Ember Teague MCV (RBC) [Entitic vol] 92.0 fL Normal 81.0-99.0 [facility] Comment on above: Performed By: #### C BC #### [facility] [address] [address] [address] Ember Teague MONO # 0.6 103/ul Normal 0.3-0.8 [facility] Comment on above: Performed By: #### C BC #### [facility] [address] [address] [address] Ember Teague Monocytes/100 WBC (Bld) 10.0 % Normal 1.7-12.0 [facility] Comment on above: Performed By: #### C BC #### [facility] [address] [place] [address] Dr. Ember Teague NEUT # 3.2 103/ul Normal 1.4-6.5 [facility] Comment on above: Performed By: #### C BC #### [facility] [address] [place] [address] Dr. Ember Teague Neutrophils/100 WBC (Bld) 55.1 % Normal 43.0-75.0 [facility] Comment on above: Performed By: #### C BC #### [facility] [address] [place] [address] Dr. Ember Teague Platelet mean volume (Bld) [Entitic vol] 9.4 fL Critically low 9.5-13.5 [facility] Comment on above: Performed By: #### C BC #### [facility] [address] [place] [address] Dr. Ember Teague PLT 196 103/ul Normal 150-450 [facility] Comment on above: Performed By: #### C BC #### [facility] [address] [place] [address] Dr. Ember Teague RBC 2.89 106/ul Critically low 4.20-5.40 [facility] Comment on above: Performed By: #### C BC #### [facility] [address] [place] [address] Dr. Ember Teague WBC 5.8 103/ul Normal 4.0-11.0 [facility] Comment on above: Performed By: #### C BC #### [facility] [address] [place] [address] Dr. Ember Teague PROF 14(COMP METB)on 022 Albumin [Mass/Vol] 3.7 g/dL Normal 3.4-5.0 [facility] Comment on above: Performed By: #### P THINT #### [facility] [address] [place] [address] Dr. Ember Teague Albumin/Globulin [Mass ratio] 1.0 {ratio} Normal [facility] Comment on above: Performed By: #### P THINT #### [facility] [address] [place] [address] Dr. Ember Teague ALP [Catalytic activity/Vol] 79 U/L Normal 46-116 [facility] Comment on above: Performed By: #### P THINT #### [facility] [address] [place] [address] Dr. Ember Teague ALT [Catalytic activity/Vol] 24 U/L Normal 14-59 [facility] Comment on above: Performed By: #### P THINT #### [facility] [address] [place] [address] Dr. Ember Teague Anion gap [Moles/Vol] 12.8 mmol/L Normal [facility] Comment on above: Performed By: #### P THINT #### [facility] [address] [place] [address] Dr. Ember Teague AST [Catalytic activity/Vol] 17 U/L Normal 15-37 [facility] Comment on above: Performed By: #### P THINT #### [facility] [address] [place] [address] Dr. Ember Teague Bilirubin [Mass/Vol] 0.5 mg/dL Normal 0.2-1.0 [facility] Comment on above: Performed By: #### P THINT #### [facility] [address] [place] [address] Dr. Ember Teague Calcium [Mass/Vol] 9.4 mg/dL Normal 8.5-10.1 [facility] Comment on above: Performed By: #### P THINT #### [facility] [address] [address] [address] Ember Teague Chloride [Moles/Vol] 101 mmol/L Normal 98-107 [facility] Comment on above: Performed By: #### P THINT #### [facility] [address] [address] [address] Ember Teague CO2 [Moles/Vol] 24.3 mmol/L Normal 21.0-32.0 [facility] Comment on above: Performed By: #### P THINT #### [facility] [address] [address] [address] Ember Teague Creatinine [Mass/Vol] 2.84 mg/dL Critically high 0.55-1.02 [facility] Comment on above: Performed By: #### P THINT #### [facility] [address] [address] [address] Ember Teague EGFR-AF QATARI 20 mL/min/1.73m2 Critically low >=60 [facility] Comment on above: Performed By: #### P THINT #### [facility] [address] [address] [address] Ember Teague EGFR-NON AF QATARI 16 mL/min/1.73m2 Critically low >=60 [facility] Comment on above: Performed By: #### P THINT #### [facility] [address] [address] [address] Ember Teague Globulin (S) [Mass/Vol] 3.7 g/dL Normal [facility] Comment on above: Performed By: #### P THINT #### [facility] [address] [address] [address] Ember Teague Glucose [Mass/Vol] 174 mg/dL Critically high 74-106 [facility] Comment on above: Performed By: #### P THINT #### [facility] [address] [address] [address] Ember Teague Potassium [Moles/Vol] 5.1 mmol/L Normal 3.5-5.1 [facility] Comment on above: Performed By: #### P THINT #### [facility] [address] [place], [place] [address] Dr. Ember Teague Protein [Mass/Vol] 7.4 g/dL Normal 6.4-8.2 [facility] Comment on above: Performed By: #### P THINT #### [facility] [address] [place], [place] [address] Dr. Ember Teague Sodium [Moles/Vol] 133 mmol/L Critically low 136-145 [facility] Comment on above: Performed By: #### P THINT #### [facility] [address] [address] [address] Ember Teague Urea nitrogen [Mass/Vol] 68.0 mg/dL Critically high 7.0-18.0 [facility] Comment on above: Performed By: #### P THINT #### [facility] [address] [address] [address] Ember Teague Urea nitrogen/Creatinine [Mass ratio] 23.9 mg/mg Normal [facility] Comment on above: Performed By: #### P THINT #### [facility] [address] [address] [address] Ember Teague TROPONIN, HIGH SENSITIVITYon 09-11-2022 HSTROP 9.1 pg/mL Normal 4.0-51.3 [facility] Comment on above: Result Comment: CUT- OFF POINTS HAVE BEEN ESTABLISHED BASED ON THE FOURTH UNIVERSAL DEFINITIONS OF MYOCARDIAL INFARCTION. THE UPPER REFERENCE LIMIT (URL) OF TROPONIN, DEFINED THE 99TH PERCENTILE OF cTnI DISTRIBUTION IN A REFERENCE POPULATION, HAS BEEN CONFIRMED THE DECISION THRESHOLD FOR WI DIAGNOSIS. Performed By: #### P THINT #### [facility] [address] [place] [address] [address] [address] Ember Teague UA RANDOM W/MICROSCOPICon BACTERIA NONE SEEN Normal NONE SEEN [facility] Comment on above: Performed By: #### C VDTBH #### [facility] [address] [place], [place] [id number] Dr. Ember Teague Bilirubin Ql (U) Negative Normal NEGATIVE [facility] Comment on above: Performed By: #### C VDTBH #### [facility] [address] [place] [address] Dr. Ember Teague CAST NONE SEEN Normal NONE SEEN [facility] Comment on above: Performed By: #### C VDTBH #### [facility] [address] [place] [address] Dr. Ember Teague Clarity (U) CLEAR Normal CLEAR [facility] Comment on above: Performed By: #### C VDTBH #### [facility] [address] [place] [address] Dr. Ember Teague Color (U) LT. YELLOW Normal YELLOW [facility] Comment on above: Performed By: #### C VDTBH #### [facility] [address] [place] [address] Dr. Ember Teague Crystals LM Nom (Urine sed) NONE SEEN Normal NONE SEEN [facility] Comment on above: Performed By: #### C VDTBH #### [facility] [address] [place] [address] Dr. Ember Taegue Epithelial cells LM Ql (Urine sed) FEW Abnormal NONE SEEN /RARE [facility] Comment on above: Performed By: #### C VDTBH #### [facility] [address] [place] [address] Dr. Ember Teague Glucose Ql (U) Negative Normal NEGATIVE [facility] Comment on above: Performed By: #### C VDTBH #### [facility] [address] [place] [address] Dr. Ember Teague Hemoglobin Ql (U) Negative Normal NEGATIVE [facility] Comment on above: Performed By: #### C VDTBH #### [facility] [address] [place] [address] Dr. Ember Teague Ketones Ql (U) Negative Normal NEGATIVE [facility] Comment on above: Performed By: #### C VDTBH #### [facility] [address] [place] [address] Dr. Ember Teague LEUKOCYTES Negative Normal NEGATIVE [facility] Comment on above: Performed By: #### C VDTBH #### [facility] [address] [place] [address] Dr. Ember Teague MUCOUS NONE SEEN Normal NONE SEEN [facility] Comment on above: Performed By: #### C VDTBH #### [facility] [address] [address] [address] Ember Teague Nitrite Ql (U) Negative Normal NEGATIVE [facility] Comment on above: Performed By: #### C VDTBH #### [facility] [address] [place] [address] Dr. Ember Teague pH (U) 5.5 [pH] Normal 5-9 [facility] Comment on above: Performed By: #### C VDTBH #### [facility] [address] [place] [address] Dr. Ember Teague RBC NONE SEEN Abnormal 0-2 [facility] Comment on above: Performed By: #### C VDTBH #### [facility] [address] [place] [address] Dr. Ember Teague SPEC GRAVITY 1.010 Normal 1.005-<=1.025 [facility] Comment on above: Performed By: #### C VDTBH #### [facility] [address] [place] [address] Dr. Ember Teague UA PROTEIN Negative Normal NEGATIVE/ TRACE [facility] Comment on above: Performed By: #### C VDTBH #### [facility] [address] [place] [address] Dr. Ember Teague Urobilinogen Qn (U) 0.2 {Esau'U}/dL Normal 0.2 - 1. 0 [facility] Comment on above: Performed By: #### C VDTBH #### [facility] [address] [place] [address] Dr. Ember Teague WBC NONE SEEN Normal NONE SEEN [facility] Comment on above: Performed By: #### C VDTBH #### [facility] [address] [place] [address] Dr. Ember Teague CBC AUTO DIFFon 08-13-2022 BASO # 0.0 103/ul Normal 0.0-0.1 [facility] Comment on above: Performed By: #### C BC #### [facility] [address] [address] [address] Ember Teague Basophils/100 WBC (Bld) 0.3 % Normal 0.2-2.0 [facility] Comment on above: Performed By: #### C BC #### [facility] [address] [place] [address] Dr. Ember Teague EO # 0.2 103/ul Normal 0.0-0.7 [facility] Comment on above: Performed By: #### C BC #### [facility] [address] [place] [address] Dr. Ember Teague Eosinophils/100 WBC (Bld) 3.7 % Normal 0.9-7.0 [facility] Comment on above: Performed By: #### C BC #### [facility] [address] [place] [address] Dr. Ember Teague Erythrocyte distribution width (RBC) [Ratio] 15.0 % Normal 11.0-15.0 [facility] Comment on above: Performed By: #### C BC #### [facility] [address] [place] [address] Dr. Ember Teague Hematocrit (Bld) [Volume fraction] 27.9 % Critically low 36.0-48.0 [facility] Comment on above: Performed By: #### C BC #### [facility] [address] [place] [address] Dr. Ember Teague Hemoglobin (Bld) [Mass/Vol] 9.7 g/dL Critically low 12.0-16.0 [facility] Comment on above: Performed By: #### C BC #### [facility] [address] [place] [address] Dr. Ember Teague IG # 0.01 10e3/ul Normal 0.00-0.03 [facility] Comment on above: Performed By: #### C BC #### [facility] [address] [place] [address] Dr. Ember Teague IG % 0.2 % Normal 0.0-0.5 [facility] Comment on above: Performed By: #### C BC #### [facility] [address] [place] [address] Dr. Ember Teague LYMPH # 1.9 103/ul Normal 1.2-3.8 [facility] Comment on above: Performed By: #### C BC #### [facility] [address] [place] [address] Dr. Ember Teague Lymphocytes/100 WBC (Bld) 32.2 % Normal 20.5-60.0 [facility] Comment on above: Performed By: #### C BC #### [facility] [address] [place] [address] Dr. Ember Teague MANUAL DIFF REQ NO Normal [facility] Comment on above: Performed By: #### C BC #### [facility] [address] [place] [address] Dr. Ember Teague MCH (RBC) [Entitic mass] 31.4 pg Normal 26.7-34.0 [facility] Comment on above: Performed By: #### C BC #### [facility] [address] [place] [address] Dr. Ember Teague MCHC (RBC) [Mass/Vol] 34.8 g/dL Normal 29.9-35.2 [facility] Comment on above: Performed By: #### C BC #### [facility] [address] [place] [address] Dr. Ember Teague MCV (RBC) [Entitic vol] 90.3 fL Normal 81.0-99.0 [facility] Comment on above: Performed By: #### C BC #### [facility] [address] [place] [address] Dr. Ember Teague MONO # 0.6 103/ul Normal 0.3-0.8 [facility] Comment on above: Performed By: #### C BC #### [facility] [address] [place] [address] Dr. Ember Teague Monocytes/100 WBC (Bld) 9.8 % Normal 1.7-12.0 [facility] Comment on above: Performed By: #### C BC #### [facility] [address] [place] [address] Dr. Ember Teague NEUT # 3.2 103/ul Normal 1.4-6.5 [facility] Comment on above: Performed By: #### C BC #### [facility] [address] [place] [address] Dr. Ember Teague Neutrophils/100 WBC (Bld) 53.8 % Normal 43.0-75.0 [facility] Comment on above: Performed By: #### C BC #### [facility] [address] [place] [address] Dr. Ember Teague Platelet mean volume (Bld) [Entitic vol] 10.0 fL Normal 9.5-13.5 [facility] Comment on above: Performed By: #### C BC #### [facility] [address] [place] [address] Dr. Ember Teague PLT 194 103/ul Normal 150-450 [facility] Comment on above: Performed By: #### C BC #### [facility] [address] [place] [address] Dr. Ember Teague RBC 3.09 106/ul Critically low 4.20-5.40 [facility] Comment on above: Performed By: #### C BC #### [facility] [address] [place] [address] Dr. Ember Teague WBC 6.0 103/ul Normal 4.0-11.0 [facility] Comment on above: Performed By: #### C BC #### [facility] [address] [place] [address] Dr. Ember Teague PTH INTACTon 06-26-2022 PTH, Intact 39 pg/mL Normal 15-65 [facility] Comment on above: Performed By: #### P THINT #### [facility] [address] [place] [address] Dr. Ember Teague CBC AUTO DIFFon 06-25-2022 BASO # 0.1 103/ul Normal 0.0-0.1 [facility] Comment on above: Performed By: #### C VDTBH #### [facility] [address] [place] [address] Dr. Ember Teague Basophils/100 WBC (Bld) 0.6 % Normal 0.2-2.0 [facility] Comment on above: Performed By: #### C VDTBH #### [facility] [address] [place] [address] Dr. Ember Teague EO # 0.2 103/ul Normal 0.0-0.7 [facility] Comment on above: Performed By: #### C VDTBH #### [facility] [address] [place] [address] Dr. Ember Teague Eosinophils/100 WBC (Bld) 3.0 % Normal 0.9-7.0 [facility] Comment on above: Performed By: #### C VDTBH #### [facility] [address] [place] [address] Dr. Ember Teague Erythrocyte distribution width (RBC) [Ratio] 14.2 % Normal 11.0-15.0 [facility] Comment on above: Performed By: #### C VDTBH #### [facility] [address] [place] [address] Dr. Ember Teague Hematocrit (Bld) [Volume fraction] 30.9 % Critically low 36.0-48.0 [facility] Comment on above: Performed By: #### C VDTBH #### [facility] [address] [place] [address] Dr. Ember Teague Hemoglobin (Bld) [Mass/Vol] 10.6 g/dL Critically low 12.0-16.0 [facility] Comment on above: Performed By: #### C VDTBH #### [facility] [address] [place] [address] Dr. Ember Teague IG # 0.04 10e3/ul Critically high 0.00-0.03 [facility] Comment on above: Performed By: #### C VDTBH #### [facility] [address] [place] [address] Dr. Ember Teague IG % 0.5 % Normal 0.0-0.5 [facility] Comment on above: Performed By: #### C VDTBH #### [facility] [address] [place] [address] Dr. Ember Teague LYMPH # 2.2 103/ul Normal 1.2-3.8 [facility] Comment on above: Performed By: #### C VDTBH #### [facility] [address] [place] [address] Dr. Ember Teague Lymphocytes/100 WBC (Bld) 27.0 % Normal 20.5-60.0 [facility] Comment on above: Performed By: #### C VDTBH #### [facility] [address] [place] [address] Dr. Ember Teague MANUAL DIFF REQ NO Normal [facility] Comment on above: Performed By: #### C VDTBH #### [facility] [address] [place] [address] Dr. Ember Teague MCH (RBC) [Entitic mass] 31.2 pg Normal 26.7-34.0 [facility] Comment on above: Performed By: #### C VDTBH #### [facility] [address] [place] [address] Dr. Ember Teague MCHC (RBC) [Mass/Vol] 34.3 g/dL Normal 29.9-35.2 [facility] Comment on above: Performed By: #### C VDTBH #### [facility] [address] [place] [address] Dr. Ember Teague MCV (RBC) [Entitic vol] 90.9 fL Normal 81.0-99.0 [facility] Comment on above: Performed By: #### C VDTBH #### [facility] [address] [place] [address] Dr. Ember Teague MONO # 0.7 103/ul Normal 0.3-0.8 [facility] Comment on above: Performed By: #### C VDTBH #### [facility] [address] [place] [address] Dr. Ember Teague Monocytes/100 WBC (Bld) 9.2 % Normal 1.7-12.0 [facility] Comment on above: Performed By: #### C VDTBH #### [facility] [address] [address] [address] Ember Taegue NEUT # 4.8 103/ul Normal 1.4-6.5 [facility] Comment on above: Performed By: #### C VDTBH #### [facility] [address] [address] [address] Ember Teague Neutrophils/100 WBC (Bld) 59.7 % Normal 43.0-75.0 [facility] Comment on above: Performed By: #### C VDTBH #### [facility] [address] [address] [address] Ember Teague Platelet mean volume (Bld) [Entitic vol] 9.3 fL Critically low 9.5-13.5 [facility] Comment on above: Performed By: #### C VDTBH #### [facility] [address] [place] [address] Dr. Ember Teague PLT 227 103/ul Normal 150-450 [facility] Comment on above: Performed By: #### C VDTBH #### [facility] [address] [address] [address] Ember Teague RBC 3.40 106/ul Critically low 4.20-5.40 [facility] Comment on above: Performed By: #### C VDTBH #### [facility] [address] [place] [address] Dr. Ember Teague WBC 8.0 103/ul Normal 4.0-11.0 [facility] Comment on above: Performed By: #### C VDTBH #### [facility] [address] [place] [address] Dr. Ember Teague MRI LSPINE WO CONon [...] YANET HUERTA Date: 2022-06-25 08:45 Normal [facility] RENAL FUNCTION PANELon 06-25 Albumin [Mass/Vol] 3.9 g/dL Normal 3.4-5.0 [facility] Comment on above: Performed By: #### P THINT #### [facility] [address] [address] [address] Ember Teague Calcium [Mass/Vol] 9.5 mg/dL Normal 8.5-10.1 [facility] Comment on above: Performed By: #### P THINT #### [facility] [address] [address] [address] Ember Teague Chloride [Moles/Vol] 102 mmol/L Normal 98-107 [facility] Comment on above: Performed By: #### P THINT #### [facility] [address] [address] [address] Ember Teague CO2 [Moles/Vol] 23.8 mmol/L Normal 21.0-32.0 [facility] Comment on above: Performed By: #### P THINT #### [facility] [address] [address] [address] Ember Teague Creatinine [Mass/Vol] 1.75 mg/dL Critically high 0.55-1.02 [facility] Comment on above: Performed By: #### P THINT #### [facility] [address] [address] [address] Ember Teague EGFR-AF QATARI 34 mL/min/1.73m2 Critically low >=60 [facility] Comment on above: Performed By: #### P THINT #### [facility] [address] [address] [address] Ember Teague EGFR-NON AF QATARI 28 mL/min/1.73m2 Critically low >=60 [facility] Comment on above: Performed By: #### P THINT #### [facility] [address] [address] [address] Ember Teague Glucose [Mass/Vol] 199 mg/dL Critically high 74-106 [facility] Comment on above: Performed By: #### P THINT #### [facility] [address] [address] [address] Ember Teague Phosphate [Mass/Vol] 4.3 mg/dL Normal 2.6-4.7 [facility] Comment on above: Performed By: #### P THINT #### [facility] [address] [address] [address] Ember Teague Potassium [Moles/Vol] 4.9 mmol/L Normal 3.5-5.1 [facility] Comment on above: Performed By: #### P THINT #### [facility] [address] [address] [address] Ember Teague Sodium [Moles/Vol] 135 mmol/L Critically low 136-145 [facility] Comment on above: Performed By: #### P THINT #### [facility] [address] [address] [address] Ember Teague Urea nitrogen [Mass/Vol] 34.0 mg/dL Critically high 7.0-18.0 [facility] Comment on above: Performed By: #### P THINT #### [facility] [address] [place] [address] Dr. Ember Teague VITAMIN D 25 OHon 06-25-2022 VIT D 25-OH 40.6 ng/mL Normal [facility] Comment on above: Performed By: #### P THINT #### [facility] [address] [place] [address] Dr. Ember Teague VIT D RANGES SEE BELOW Normal [facility] Comment on above: Result Comment: <20 ng/mL Vit D deficient 20 - <30 ng/mL Vit D insufficient 30 - 100 ng/mL Vit D sufficient >100 ng/mL Potential Toxicity Performed By: #### P THINT #### [facility] [address] [place] [address] Dr. Ember Teague Covid-19 PCR (CVDTBH)on 06-07 SARS-CoV-2 (COVID-19) RNA ALEXX+probe Ql (Unsp spec) Not detected Normal NOT DETECTED [facility] Comment on above: Result Comment: This test is not yet approved or cleared by the [place] FDA. When there are no FDA-approved or cleared tests available, and other criteria are met, FDA can make tests available under an emergency access mechanism called an Emergency Use Authorization (EUA). The EUA for this test is supported by the [place] [employer] of Health and Human Service's (HHS's) declaration [...] SARS-CoV-2. Performed By: #### C VDTBH #### [facility] [address] [place] [address] LSPINE WO CONon [...] is chronic. Findings have progressed slightly since 2015. 2. Multilevel mild central canal and foramen narrowing secondary to mild diffuse disc bulging. Mild disc at reduction L5-S1. 3. Minimal degenerative facet arthropathy. 4. Consider MRI for further evaluation if symptoms persist. Electronically authenticated by: YANET HUERTA Date: 2022-06-01 18:02 Normal [facility] XR LSPINE MIN 4 VIEWSon 05-07 [...] YANET HUERTA Date: 2022-05-21 15:25 Normal [facility] PTH INTACTon 05-03-2022 PTH, Intact 60 pg/mL Normal 15-65 [facility] Comment on above: Performed By: #### C VDTBH #### [facility] [address] [address] [address] Ember Teague VIT D 25-OH LABCORPon 2021 Vitamin D, 25-Hydroxy 26.1 ng/mL Critically low 30.0-100.0 [facility] Comment on above: Result Comment: Sara min D deficiency has been defined by the [place] [employer] and an Endocrine Society practice guideline as a level of serum 25-OH vitamin D less than 20 ng/mL (1,2). The Endocrine Society went on to further define vitamin D insufficiency as a level between 21 and 29 ng/mL (2). 1. IOM ([place] [employer]). 2010. Dietary reference intakes for calcium and D. [place]: The National Academies Press. 2. Sherice MF, Wendy WILSON, Huan ZHONG, et al. Evaluation, treatment, and prevention of vitamin D deficiency: an Endocrine Society clinical practice guideline. JCEM. 2010; 96(7):1911-30. Performed By: #### R ENAL #### [facility] [address] [place] [address] Dr. Ebmer Teague FERRITINon 05-02-2022 Ferritin [Mass/Vol] 590.0 ng/mL Critically high 8.0-252.0 [facility] Comment on above: Performed By: #### R ENAL #### [facility] [address] [address] [address] Ember Teague HEMOGRAM AND PLATELon 2021 Hematocrit (Bld) [Volume fraction] 28.4 % Critically low 36.0-48.0 [facility] Comment on above: Performed By: #### C VDTBH #### [facility] [address] [address] [address] Ember Teague Hemoglobin (Bld) [Mass/Vol] 9.6 g/dL Critically low 12.0-16.0 [facility] Comment on above: Performed By: #### C VDTBH #### [facility] [address] [place] [address] Dr. Ember Teague MCH (RBC) [Entitic mass] 31.0 pg Normal 26.7-34.0 [facility] Comment on above: Performed By: #### C VDTBH #### [facility] [address] [place] [address] Dr. Ember Teague MCHC (RBC) [Mass/Vol] 33.8 g/dL Normal 29.9-35.2 [facility] Comment on above: Performed By: #### C VDTBH #### [facility] [address] [place] [address] Dr. Ember Teague MCV (RBC) [Entitic vol] 91.6 fL Normal 81.0-99.0 [facility] Comment on above: Performed By: #### C VDTBH #### [facility] [address] [place] [address] Dr. Ember Teague PLT 189 103/ul Normal 150-450 [facility] Comment on above: Performed By: #### C VDTBH #### [facility] [address] [place] [address] Dr. Ember Teague RBC 3.10 106/ul Critically low 4.20-5.40 [facility] Comment on above: Performed By: #### C VDTBH #### [facility] [address] [place] [address] Dr. Ember Teague WBC 6.2 103/ul Normal 4.0-11.0 [facility] Comment on above: Performed By: #### C VDTBH #### [facility] [address] [place] [address] Dr. Ember Teague IRON AND TIBCon 05-02-2022 % SATURATION 34.3 % Normal [facility] Comment on above: Performed By: #### R ENAL #### [facility] [address] [place] [address] Dr. Ember Teague Iron [Mass/Vol] 69.0 ug/dL Normal 50.0-170.0 [facility] Comment on above: Performed By: #### R ENAL #### [facility] [address] [place] [address] Dr. Ember Teague TIBC DIRECT 201.0 ug/dL Critically low 250.0-450.0 [facility] Comment on above: Performed By: #### R ENAL #### [facility] [address] [place] [address] Dr. Ember Teague MAGNESIUMon 05-02-2022 Magnesium [Mass/Vol] 1.7 mg/dL Critically low 1.8-2.4 [facility] Comment on above: Performed By: #### C VDTBH #### [facility] [address] [place] [address] Dr. Ember Teague RENAL FUNCTION PANELon 05-02 Albumin [Mass/Vol] 3.6 g/dL Normal 3.4-5.0 [facility] Comment on above: Performed By: #### C VDTBH #### [facility] [address] [place] [address] Dr. Ember Teague Calcium [Mass/Vol] 9.2 mg/dL Normal 8.5-10.1 [facility] Comment on above: Performed By: #### C VDTBH #### [facility] [address] [place] [address] Dr. Ember Teague Chloride [Moles/Vol] 107 mmol/L Normal 98-107 [facility] Comment on above: Performed By: #### C VDTBH #### [facility] [address] [place] [address] Dr. Ember Teague CO2 [Moles/Vol] 21.2 mmol/L Normal 21.0-32.0 [facility] Comment on above: Performed By: #### C VDTBH #### [facility] [address] [place] [address] Dr. Ember Teague Creatinine [Mass/Vol] 1.75 mg/dL Critically high 0.55-1.02 [facility] Comment on above: Performed By: #### C VDTBH #### [facility] [address] [address] [address] Ember Teague EGFR-AF QATARI 34 mL/min/1.73m2 Critically low >=60 [facility] Comment on above: Performed By: #### C VDTBH #### [facility] [address] [address] [address] Ember Teague EGFR-NON AF QATARI 28 mL/min/1.73m2 Critically low >=60 [facility] Comment on above: Performed By: #### C VDTBH #### [facility] [address] [address] [address] Ember Teague Glucose [Mass/Vol] 193 mg/dL Critically high 74-106 [facility] Comment on above: Performed By: #### C VDTBH #### [facility] [address] [address] [address] Ember Teague Phosphate [Mass/Vol] 4.2 mg/dL Normal 2.6-4.7 [facility] Comment on above: Performed By: #### C VDTBH #### [facility] [address] [address] [address] Ember Teague Potassium [Moles/Vol] 5.1 mmol/L Normal 3.5-5.1 [facility] Comment on above: Performed By: #### C VDTBH #### [facility] [address] [address] [address] Ember Teague Sodium [Moles/Vol] 139 mmol/L Normal 136-145 [facility] Comment on above: Performed By: #### C VDTBH #### [facility] [address] [address] [address] Ember Teague Urea nitrogen [Mass/Vol] 34.0 mg/dL Critically high 7.0-18.0 [facility] Comment on above: Performed By: #### C VDTBH #### [facility] [address] [address] [address] Ember Teague UA RANDOM W/MICROSCOPICon BACTERIA SMALL Abnormal NONE SEEN [facility] Comment on above: Performed By: #### C VDTBH #### [facility] [address] [place] [address] Dr. Ember Teague Bilirubin Ql (U) Negative Normal NEGATIVE [facility] Comment on above: Performed By: #### C VDTBH #### [facility] [address] [address] [address] Ember Teague CAST NONE SEEN Normal NONE SEEN [facility] Comment on above: Performed By: #### C VDTBH #### [facility] [address] [place] [address] Dr. Ember Teague Clarity (U) CLEAR Normal CLEAR [facility] Comment on above: Performed By: #### C VDTBH #### [facility] [address] [place] [address] Dr. Ember Teague Color (U) LT. YELLOW Normal YELLOW [facility] Comment on above: Performed By: #### C VDTBH #### [facility] [address] [place] [address] Dr. Ember Teague Crystals LM Nom (Urine sed) NONE SEEN Normal NONE SEEN [facility] Comment on above: Performed By: #### C VDTBH #### [facility] [address] [place] [address] Dr. Ember Teague Epithelial cells LM Ql (Urine sed) MODERATE Abnormal NONE SEEN /RARE [facility] Comment on above: Performed By: #### C VDTBH #### [facility] [address] [place] [address] Dr. Ember Teague Glucose Ql (U) Negative Normal NEGATIVE [facility] Comment on above: Performed By: #### C VDTBH #### [facility] [address] [place] [address] Dr. Ember Teague Hemoglobin Ql (U) Negative Normal NEGATIVE [facility] Comment on above: Performed By: #### C VDTBH #### [facility] [address] [place] [address] Dr. Ember Teague Ketones Ql (U) Negative Normal NEGATIVE [facility] Comment on above: Performed By: #### C VDTBH #### [facility] [address] [place] [address] Dr. Ember Teague LEUKOCYTES TRACE Abnormal NEGATIVE [facility] Comment on above: Performed By: #### C VDTBH #### [facility] [address] [place] [address] Dr. Ember Teague MUCOUS NONE SEEN Normal NONE SEEN [facility] Comment on above: Performed By: #### C VDTBH #### [facility] [address] [place] [address] Dr. Ember Teague Nitrite Ql (U) Negative Normal NEGATIVE [facility] Comment on above: Performed By: #### C VDTBH #### [facility] [address] [place] [address] Dr. Ember Teague pH (U) 5.0 [pH] Normal 5-9 [facility] Comment on above: Performed By: #### C VDTBH #### [facility] [address] [place] [address] Dr. Ember Teague RBC NONE SEEN Abnormal 0-2 [facility] Comment on above: Performed By: #### C VDTBH #### [facility] [address] [place] [address] Dr. Ember Teague SPEC GRAVITY 1.015 Normal 1.005-<=1.025 [facility] Comment on above: Performed By: #### C VDTBH #### [facility] [address] [place] [address] Dr. Ember Teague UA PROTEIN TRACE Normal NEGATIVE/ TRACE [facility] Comment on above: Performed By: #### C VDTBH #### [facility] [address] [place] [address] Dr. Ember Teague Urobilinogen Qn (U) 0.2 {Esau'U}/dL Normal 0.2 - 1. 0 [facility] Comment on above: Performed By: #### C VDTBH #### [facility] [address] [place] [address] Dr. Ember Teague WBC 0-2 Abnormal NONE SEEN [facility] Comment on above: Performed By: #### C VDTBH #### [facility] [address] [place] [address] Dr. Ember Teague URIC ACID SERUMon 05-02-2022 Urate [Mass/Vol] 4.4 mg/dL Normal 2.6-6.0 [facility] Comment on above: Performed By: #### C BC #### [facility] [address] [place] [address] Dr. Ember Teague URINE T PROTEIN CREAT RATIOo n 05-02-2022 Protein (U) [Mass/Vol] 33.7 mg/dL Critically high <=12.0 [facility] Comment on above: Performed By: #### C VDTBH #### [facility] [address] [place] [address] Dr. Ember Teague UR PROT CREAT RAT 0.69 Normal [facility] Comment on above: Performed By: #### C VDTBH #### [facility] [address] [place] [address] Dr. Ember Teague URINE CREAT 48.93 mg/dL Normal 20.00-300.00 [facility] Comment on above: Performed By: #### C VDTBH #### [facility] [address] [place] [address] Dr. Ember Teague Vital Signs Date Time Vital Sign Value Performing Clinician Facility 11-18-2023 10:00-0500 Body height 168.91 cm Ron Doreen Other [employer] [facility] [employer] Other 11-18-2023 10:00-0500 Body mass index (BMI) [Ratio] 29.85 kg/m2 Ron Doreen Other [facility] Other 11-18-2023 10:00-0500 Body temperature 97.3 [degF] Ron Doreen Other [facility] Other 11-18-2023 10:00-0500 Body weight 85.19 kg Orn Doreen Other [facility] Other 11-18-2023 10:00-0500 Diastolic blood pressure 79 mm[Hg] Ron Doreen Other [facility] Other 11-18-2023 10:00-0500 Respiratory rate 18 /min Ron Doreen Other [facility] Other 11-18-2023 10:00-0500 SaO2% (BldA) [Mass fraction] 98 % Ron Doreen Other [facility] Other 11-18-2023 10:00-0500 Systolic blood pressure 149 mm[Hg] Ron Doreen Other [facility] Other 11-04-2023 11:00-0500 Body height 168.91 cm Ron Doreen Other [facility] Other 11-04-2023 11:00-0500 Body mass index (BMI) [Ratio] 30.17 kg/m2 Ron Doreen Other [facility] Other 11-04-2023 11:00-0500 Body temperature 97.6 [degF] Ron Doreen Other [facility] Other 11-04-2023 11:00-0500 Body weight 86.09 kg Ron Doreen Other [facility] Other 11-04-2023 11:00-0500 Diastolic blood pressure 76 mm[Hg] Ron Doreen Other [facility] Other 11-04-2023 11:00-0500 Respiratory rate 18 /min Ron Doreen Other [facility] Other 11-04-2023 11:00-0500 SaO2% (BldA) [Mass fraction] 98 % Ron Doreen Other [facility] Other 11-04-2023 11:00-0500 Systolic blood pressure 153 mm[Hg] Ron Doreen Other [facility] Other 10-15-2023 13:00-0500 Body height 168.91 cm Ron Doreen Other [facility] Other 10-15-2023 13:00-0500 Body mass index (BMI) [Ratio] 29.82 kg/m2 Ron Doeren Other [facility] Other 10-15-2023 13:00-0500 Body temperature 97.5 [degF] Ron Doreen Other [facility] [facility] Other 10-15-2023 13:00-0500 Body weight 85.1 kg Ron Doreen Other [facility] Other 10-15-2023 13:00-0500 Diastolic blood pressure 68 mm[Hg] Ron Doreen Other [facility] [facility] Other 10-15-2023 13:00-0500 Respiratory rate 18 /min Ron Doreen Other [facility] Other 10-15-2023 13:00-0500 SaO2% (BldA) [Mass fraction] 98 % Ron Doreen Other [facility] Other 10-15-2023 13:00-0500 Systolic blood pressure 113 mm[Hg] Ron Doreen Other [facility] Other 08-27-2023 09:40-0500 Body height 168.91 cm Aziz Bakhous Other [facility] [facility] Other 08-27-2023 09:40-0500 Body mass index (BMI) [Ratio] 30.2 kg/m2 Aziz Bakhous Other [facility] Other 08-27-2023 09:40-0500 Body temperature 96.7 [degF] Aziz Bakhous Other [facility] [facility] Other 08-27-2023 09:40-0500 Body weight 86.18 kg Aziz Bakhous Other [facility] Other 08-27-2023 09:40-0500 Diastolic blood pressure 72 mm[Hg] Aziz Bakhous Other [facility] Other 08-27-2023 09:40-0500 Respiratory rate 18 /min Azduc Bakhous Other [facility] Other 08-27-2023 09:40-0500 SaO2% (BldA) [Mass fraction] 98 % Aziz Bakhous Other [facility] [facility] Other 08-27-2023 09:40-0500 Systolic blood pressure 153 mm[Hg] Aziz Bakhous Other [facility] Other 08-15-2023 10:20-0500 Body height 168.91 cm Ron Doreen Other [facility] [facility] Other 08-15-2023 10:20-0500 Body mass index (BMI) [Ratio] 30.2 kg/m2 Ron Doreen Other [facility] Other 08-15-2023 10:20-0500 Body temperature 97.1 [degF] Ron Doreen Other [facility] Other 08-15-2023 10:20-0500 Body weight 86.18 kg Ron Doreen Other [facility] Other 08-15-2023 10:20-0500 Diastolic blood pressure 79 mm[Hg] Ron Doreen Other [facility] Other 08-15-2023 10:20-0500 Respiratory rate 18 /min Ron Doreen Other [facility] Other 08-15-2023 10:20-0500 SaO2% (BldA) [Mass fraction] 98 % Ron Doreen Other [facility] Other 08-15-2023 10:20-0500 Systolic blood pressure 164 mm[Hg] Ron Doreen Other [facility] [facility] Other 08-13-2023 15:40-0500 Body height 168.91 cm Ron Doreen Other [facility] [facility] Other 08-13-2023 15:40-0500 Body mass index (BMI) [Ratio] 30.24 kg/m2 Ron Doreen Other [facility] Other 08-13-2023 15:40-0500 Body temperature 97.2 [degF] Ron Doreen Other [facility] [facility] Other 08-13-2023 15:40-0500 Body weight 86.27 kg Ron Doreen Other [employer] [facility] Other 08-13-2023 15:40-0500 Diastolic blood pressure 79 mm[Hg] Ron Doreen Other [facility] [facility] Other 08-13-2023 15:40-0500 Respiratory rate 18 /min Ron Doreen Other [facility] [facility] Other 08-13-2023 15:40-0500 SaO2% (BldA) [Mass fraction] 98 % Ron Doreen Other [facility] Other 08-13-2023 15:40-0500 Systolic blood pressure 186 mm[Hg] Ron Doreen Other [facility] Other 08-01-2023 13:00-0400 Body height 168.91 cm Ron Doreen Other [facility] Other 08-01-2023 13:00-0400 Body mass index (BMI) [Ratio] 30.55 kg/m2 Ron Doreen Other [facility] Other 08-01-2023 13:00-0400 Body temperature 97.8 [degF] Ron Doreen Other [facility] Other 08-01-2023 13:00-0400 Body weight 87.18 kg Ron Doreen Other [facility] Other 08-01-2023 13:00-0400 Diastolic blood pressure 72 mm[Hg] Ron Doreen Other [facility] Other 08-01-2023 13:00-0400 Respiratory rate 18 /min Ron Doreen Other [facility] Other 08-01-2023 13:00-0400 SaO2% (BldA) [Mass fraction] 98 % Ron Doreen Other [facility] [facility] Other 08-01-2023 13:00-0400 Systolic blood pressure 160 mm[Hg] Ron Doreen Other [facility] [facility] Other 06-24-2023 11:40-0400 Body height 168.91 cm Ron Doreen Other [facility] Other 06-24-2023 11:40-0400 Body mass index (BMI) [Ratio] 29.89 kg/m2 Ron Doreen Other [facility] [facility] Other 06-24-2023 11:40-0400 Body temperature 97.3 [degF] Ron Doreen Other [facility] Other 06-24-2023 11:40-0400 Body weight 85.28 kg Ron Doreen Other [facility] [facility] Other 06-24-2023 11:40-0400 Diastolic blood pressure 75 mm[Hg] Ron Doreen Other [facility] Other 06-24-2023 11:40-0400 Respiratory rate 18 /min Ron Doreen Other [facility] Other 06-24-2023 11:40-0400 SaO2% (BldA) [Mass fraction] 99 % Ron Doreen Other [facility] Other 06-24-2023 11:40-0400 Systolic blood pressure 129 mm[Hg] Ron Doreen Other [facility] Other 06-06-2023 15:20-0400 Body height 168.91 cm Ron Doreen Other [facility] Other 06-06-2023 15:20-0400 Body mass index (BMI) [Ratio] 29.92 kg/m2 Ron Doreen Other [facility] Other 06-06-2023 15:20-0400 Body temperature 96.5 [degF] Ron Doreen Other [facility] Other 06-06-2023 15:20-0400 Body weight 85.37 kg Ron Doreen Other [facility] Other 06-06-2023 15:20-0400 Diastolic blood pressure 49 mm[Hg] Ron Doreen Other [facility] Other 06-06-2023 15:20-0400 Respiratory rate 18 /min Ron Doreen Other [facility] Other 06-06-2023 15:20-0400 SaO2% (BldA) [Mass fraction] 99 % Ron Doreen Other [facility] Other 06-06-2023 15:20-0400 Systolic blood pressure 128 mm[Hg] Ron Doreen Other [facility] Other 04-30-2023 11:40-0400 Body height 168.91 cm Ron Doreen Other [facility] Other 04-30-2023 11:40-0400 Body mass index (BMI) [Ratio] 30.52 kg/m2 Ron Doreen Other [facility] Other 04-30-2023 11:40-0400 Body temperature 96.9 [degF] Ron Doreen Other [facility] Other 04-30-2023 11:40-0400 Body weight 87.09 kg Ron Doreen Other [facility] Other 04-30-2023 11:40-0400 Diastolic blood pressure 80 mm[Hg] Ron Doreen Other [facility] Other 04-30-2023 11:40-0400 Respiratory rate 18 /min Ron Doreen Other [facility] Other 04-30-2023 11:40-0400 SaO2% (BldA) [Mass fraction] 98 % Ron Doreen Other [facility] [facility] Other 04-30-2023 11:40-0400 Systolic blood pressure 150 mm[Hg] Ron Doreen Other [facility] Other 04-06-2023 09:00-0400 Body height 168.91 cm Ron Doreen Other [facility] Other 04-06-2023 09:00-0400 Body mass index (BMI) [Ratio] 30.36 kg/m2 Ron Doreen Other [facility] Other 04-06-2023 09:00-0400 Body weight 86.64 kg Ron Doreen Other [facility] Other 04-06-2023 09:00-0400 Diastolic blood pressure 54 mm[Hg] Ron Doreen Other [facility] Other 04-06-2023 09:00-0400 Respiratory rate 18 /min Ron Doreen Other [facility] Other 04-06-2023 09:00-0400 SaO2% (BldA) [Mass fraction] 98 % Ron Doreen Other [facility] Other 04-06-2023 09:00-0400 Systolic blood pressure 144 mm[Hg] Ron Doreen Other [facility] Other 04-02-2023 14:40-0400 Body height 168.91 cm Ron Doreen Other [facility] Other 04-02-2023 14:40-0400 Body mass index (BMI) [Ratio] 30.55 kg/m2 Ron Doreen Other [facility] Other 04-02-2023 14:40-0400 Body temperature 97 [degF] Ron Doreen Other [facility] Other 04-02-2023 14:40-0400 Body weight 87.18 kg Ron Doreen Other [facility] Other 04-02-2023 14:40-0400 Diastolic blood pressure 76 mm[Hg] Ron Doreen Other [facility] Other 04-02-2023 14:40-0400 Respiratory rate 18 /min Ron Doreen Other [facility] [facility] Other 04-02-2023 14:40-0400 SaO2% (BldA) [Mass fraction] 98 % Ron Doreen Other [facility] Other 04-02-2023 14:40-0400 Systolic blood pressure 183 mm[Hg] Ron Doreen Other [facility] Other 03-07-2023 09:20-0400 Body height 168.91 cm Ron Doreen Other [facility] Other 03-07-2023 09:20-0400 Body mass index (BMI) [Ratio] 30.52 kg/m2 Ron Doreen Other [facility] Other 03-07-2023 09:20-0400 Body temperature 97.1 [degF] Ron Doreen Other [facility] Other 03-07-2023 09:20-0400 Body weight 87.09 kg Ron Doreen Other [facility] Other 03-07-2023 09:20-0400 Diastolic blood pressure 72 mm[Hg] Ron Doreen Other [facility] Other 03-07-2023 09:20-0400 Respiratory rate 18 /min Ron Doreen Other [facility] Other 03-07-2023 09:20-0400 SaO2% (BldA) [Mass fraction] 97 % Ron Doreen Other [facility] Other 03-07-2023 09:20-0400 Systolic blood pressure 130 mm[Hg] Ron Doreen Other [facility] Other 12-20-2022 13:20-0400 Body height 168.91 cm Ron Doreen Other [facility] Other 12-20-2022 13:20-0400 Body mass index (BMI) [Ratio] 30.68 kg/m2 Ron Doreen Other [facility] Other 12-20-2022 13:20-0400 Body temperature 97.1 [degF] Ron Doreen Other [facility] Other 12-20-2022 13:20-0400 Body weight 87.54 kg Ron Doreen Other [facility] Other 12-20-2022 13:20-0400 Diastolic blood pressure 72 mm[Hg] Ron Doreen Other [facility] Other 12-20-2022 13:20-0400 Respiratory rate 18 /min Ron Doreen Other [facility] Other 12-20-2022 13:20-0400 SaO2% (BldA) [Mass fraction] 99 % Ron Doreen Other [facility] Other 12-20-2022 13:20-0400 Systolic blood pressure 139 mm[Hg] Ron Doreen Other [facility] Other 11-05-2022 14:00-0500 Body height 168.91 cm Ron Doreen Other [facility] Other 11-05-2022 14:00-0500 Body mass index (BMI) [Ratio] 30.59 kg/m2 Ron Doreen Other [facility] Other 11-05-2022 14:00-0500 Body temperature 96.8 [degF] Ron Doreen Other [facility] Other 11-05-2022 14:00-0500 Body weight 87.27 kg Ron Doreen Other [facility] Other 11-05-2022 14:00-0500 Diastolic blood pressure 72 mm[Hg] Ron Doreen Other [facility] Other 11-05-2022 14:00-0500 Respiratory rate 18 /min Ron Doreen Other [facility] Other 11-05-2022 14:00-0500 SaO2% (BldA) [Mass fraction] 98 % Ron Doreen Other [facility] Other 11-05-2022 14:00-0500 Systolic blood pressure 157 mm[Hg] Ron Doreen Other [facility] Other 09-27-2022 16:00-0500 Body height 168.91 cm Jana Monson Other [facility] Other 09-27-2022 16:00-0500 Body mass index (BMI) [Ratio] 30.55 kg/m2 Jana Monson Other [facility] Other 09-27-2022 16:00-0500 Body temperature 96.8 [degF] Jnaa Monson Other [facility] Other 09-27-2022 16:00-0500 Body weight 87.18 kg Jana Monson Other [facility] Other 09-27-2022 16:00-0500 Diastolic blood pressure 73 mm[Hg] Jana Monson Other [facility] Other 09-27-2022 16:00-0500 Respiratory rate 18 /min Jana Monson Other [facility] Other 09-27-2022 16:00-0500 SaO2% (BldA) [Mass fraction] 98 % Jana Monson Other [facility] Other 09-27-2022 16:00-0500 Systolic blood pressure 159 mm[Hg] Jana Monson Other [facility] Other 08-22-2022 12:00-0500 Body height 168.91 cm Ron Doreen Other [facility] Other 08-22-2022 12:00-0500 Body mass index (BMI) [Ratio] 30.65 kg/m2 Ron Doreen Other [facility] Other 08-22-2022 12:00-0500 Body temperature 96.9 [degF] Ron Doreen Other [facility] Other 08-22-2022 12:00-0500 Body weight 87.45 kg Ron Doreen Other [facility] Other 08-22-2022 12:00-0500 Diastolic blood pressure 75 mm[Hg] Ron Doreen Other [facility] Other 08-22-2022 12:00-0500 Respiratory rate 18 /min Ron Doreen Other [facility] Other 08-22-2022 12:00-0500 SaO2% (BldA) [Mass fraction] 96 % Ron Doreen Other [facility] Other 08-22-2022 12:00-0500 Systolic blood pressure 121 mm[Hg] Ron Doreen Other [facility] Other 05-08-2022 10:20-0400 Body height 168.91 cm Ron Doreen Other [facility] Other 05-08-2022 10:20-0400 Body mass index (BMI) [Ratio] 31.54 kg/m2 Ron Doreen Other [facility] Other 05-08-2022 10:20-0400 Body temperature 97.6 [degF] Ron Doreen Other [facility] Other 05-08-2022 10:20-0400 Body weight 89.99 kg Ron Doreen Other [facility] Other 08-02-2022 10:20-0400 Diastolic blood pressure 68 mm[Hg] Ron Doreen Other [facility] Other 05-08-2022 10:20-0400 Respiratory rate 18 /min Ron Doreen Other [facility] Other 05-08-2022 10:20-0400 SaO2% (BldA) [Mass fraction] 98 % Ron Doreen Other [facility] Other 05-08-2022 10:20-0400 Systolic blood pressure 131 mm[Hg] Ron Doreen Other [facility] Other 01-18-2022 10:20-0400 Body height 168.91 cm Ron Doreen Other [facility] Other 01-18-2022 10:20-0400 Body mass index (BMI) [Ratio] 31 kg/m2 Ron Doreen Other [facility] Other 01-18-2022 10:20-0400 Body temperature 96.4 [degF] Ron Doreen Other [facility] Other 01-18-2022 10:20-0400 Body weight 88.45 kg Ron Doreen Other [facility] Other 01-18-2022 10:20-0400 Diastolic blood pressure 74 mm[Hg] Ron Doreen Other [facility] Other 01-18-2022 10:20-0400 Respiratory rate 18 /min Ron Doreen Other [facility] Other 01-18-2022 10:20-0400 SaO2% (BldA) [Mass fraction] 97 % Ron Doreen Other [facility] Other 01-18-2022 10:20-0400 Systolic blood pressure 170 mm[Hg] Ron Doreen Other [facility] Other Encounters Encounter Date Encounter Type Care Provider Facility Start: 05-25-2024 End: 05-25-2024 ambulatory GREG A PETITTI Not Available Start: 05-11-2024 End: 05-11-2024 ambulatory [facility] Start: 04-21-2024 End: 04-21-2024 ambulatory GREG A PETITTI Not Available Start: 04-16-2024 End: 04-16-2024 ambulatory GA CRESPO Not Available Start: 03-16-2024 End: 03-16-2024 ambulatory GREG A PETITTI Not Available Start: 02-10-2024 End: 02-10-2024 ambulatory [facility] Start: 01-17-2024 End: 01-17-2024 ambulatory [facility] Start: 01-16-2024 End: 01-16-2024 ambulatory GA CRESPO Not Available Start: 12-21-2023 Refill Luis dominique PA-C Work Phone: [facility] Comment on above: Med Refill Start: 11-28-2023 End: 11-28-2023 ambulatory GRGE A PETITTI Not Available Start: 11-18-2023 End: 11-18-2023 ambulatory Ron Doreen Other [facility] Other Start: 11-18-2023 Office outpatient visit 15 minutes Ron Doreen [facility] Start: 11-05-2023 End: 11-05-2023 ambulatory GA CRESPO Not Available Start: 11-04-2023 (INJECTION) INJECTION Ron Doreen [facility] Start: 11-04-2023 End: 11-04-2023 ambulatory Ron Doreen Other [facility] Other Start: 10-22-2023 End: 10-22-2023 ambulatory GA CRESPO Not Available Start: 10-15-2023 End: 10-15-2023 ambulatory Ron Doreen Other [facility] Other Start: 10-15-2023 Office outpatient visit 15 minutes Ron Doreen [facility] Start: 10-08-2023 End: 10-08-2023 ambulatory Aziz Bakhous Other [facility] Other Start: 10-08-2023 Telephone encounter Aziz Bakhous [facility] Start: 09-15-2023 End: 09-15-2023 ambulatory Ron Doreen Other [facility] Other Start: 09-15-2023 Telephone encounter Ron Doreen [facility] Start: 09-09-2023 End: 09-09-2023 ambulatory Ron Doreen Other [facility] Other Start: 09-09-2023 Telephone encounter Ron Doreen [facility] Start: 08-27-2023 (INJECTION) INJECTION Aziz Bakhous [facility] Start: 08-27-2023 End: 08-27-2023 ambulatory Aziz Bakhous Other [facility] Other Start: 08-15-2023 (INJECTION) INJECTION Ron Doreen [facility] Start: 08-15-2023 End: 08-15-2023 ambulatory Ron Doreen Other [facility] Other Start: 08-13-2023 (INJECTION) INJECTION Ron Doreen [facility] Start: 08-13-2023 End: 08-13-2023 ambulatory Ron Doreen Other [facility] Other Start: 08-01-2023 End: 08-01-2023 ambulatory Ron Doreen Other [facility] Other Start: 08-01-2023 Office outpatient visit 15 minutes Ron Doreen [facility] Start: 06-24-2023 End: 06-24-2023 ambulatory Ron Doreen Other [facility] Other Start: 06-24-2023 Office outpatient visit 10 minutes Ron Doreen [facility] Start: 06-06-2023 End: 06-06-2023 ambulatory Ron Doreen Other [facility] Other Start: 06-06-2023 Office outpatient visit 15 minutes Ron Doreen [facility] Start: 04-30-2023 End: 04-30-2023 ambulatory Ron Doreen Other [facility] Other Start: 04-30-2023 Office outpatient visit 15 minutes Ron Doreen [facility] Start: 04-06-2023 (INJECTION) INJECTION Ron Doreen [facility] Start: 04-06-2023 End: 04-06-2023 ambulatory Ron Doreen Other [facility] Other Start: 04-06-2023 Telephone encounter Ron Doreen [facility] Start: 04-02-2023 End: 04-02-2023 ambulatory Ron Doreen Other [facility] Other Start: 04-02-2023 Office outpatient visit 15 minutes Ron Doreen [facility] Start: 04-02-2023 Telephone encounter Ron Doreen [facility] Start: 03-07-2023 End: 03-07-2023 ambulatory Ron Doreen Other [facility] Other Start: 03-07-2023 Office outpatient visit 15 minutes Ron Doreen [facility] Start: 01-22-2023 End: 01-23-2023 ambulatory RON DOREEN Facility:[facility] Start: 12-20-2022 End: 12-20-2022 ambulatory Ron Doreen Other [facility] Other Start: 12-20-2022 Office outpatient visit 15 minutes Ron Doreen [facility] Start: 12-17-2022 End: 12-18-[address] DHRUV RUBI . Facility:[facility] Start: 12-10-2022 End: 12-11-2022 ambulatory RON DOREEN Facility:[facility] Start: 11-20-2022 End: 11-21-[address] BENI APARICIO Facility:[facility] Start: 11-05-2022 End: 11-05-2022 ambulatory Ron Doreen Other [facility] Other Start: 11-05-2022 Office outpatient visit 15 minutes Ron Doreen [facility] Start: 10-29-2022 End: 10-30-[address] JANA MONSON Facility:[facility] Start: 10-24-2022 End: 10-24-[address] LILLIAN ACOSTA . Facility:[facility] Start: 10-24-2022 End: 10-25-[address] DHRUV RUBI . Facility:[facility] Start: 09-27-2022 End: 09-27-2022 ambulatory Jana Monson Other [facility] Other Start: 09-27-2022 Office outpatient visit 15 minutes Jana Monson [facility] Start: 09-18-2022 End: 09-19-2022 ambulatory RON DOREEN Facility:[facility] Start: 09-11-2022 End: 09-11-[address] DHRUV RUBI . Facility:[facility] Start: 08-22-2022 End: 08-22-2022 ambulatory Ron Doreen Other [facility] Other Start: 08-22-2022 Office outpatient visit 15 minutes Ron Doreen [facility] Start: 08-13-2022 End: 08-14-2022 ambulatory RON DOREEN Facility:[facility] Start: 06-25-2022 End: 06-26-[address] DHRUV RUBI . Facility:[facility] Start: 06-18-2022 End: 06-18-[address] DHRUV RUBI . Facility:[facility] Start: 06-01-2022 End: 06-02-[address] YANET HUERTA Facility:[facility] Start: 05-28-2022 End: 05-28-2022 ambulatory Ron Doreen Other [facility] Other Start: 05-28-2022 Telephone encounter Ron Doreen [facility] Start: 05-21-2022 End: 05-22-[address] DHRUV RUBI . Facility:[facility] Start: 05-16-2022 End: 05-16-2022 ambulatory Ron Doreen Other [facility] Other Start: 05-16-2022 Telephone encounter Ron Doreen [facility] Start: 05-10-2022 End: 05-10-2022 ambulatory Ron Doreen Other [facility] Other Start: 05-10-2022 Telephone encounter Ron Doreen [facility] Start: 05-08-2022 End: 05-08-2022 ambulatory Ron Doreen Other [facility] Other Start: 05-08-2022 Office outpatient visit 25 minutes Ron Doreen [facility] Start: 05-02-2022 End: 05-03-2022 ambulatory RON DOREEN Facility: Start: 04-24-2022 End: 04-24-2022 ambulatory Mary Anne Ackerman Other [facility] Other Start: 04-24-2022 Telephone encounter Mary Anne Ackerman [facility] Start: 01-18-2022 End: 01-18-2022 ambulatory Ron Doreen Other [facility] Other Start: 01-18-2022 Office outpatient visit 25 minutes Ron Doreen [facility] Start: 05-21-2017 End: 05-22-2017 Ambulatory DEFAULT PHYSICIAN Facility:[facility] Procedures Date Procedure Procedure Detail [...] BMI Screening Adult BMI Screening [facility] Start: 03-19-2024 Tobacco Screening Tobacco Screening [facility] Start: 06-07-2023 COVID-19 Vaccine ( season) COVID-19 Vaccine ( season) [facility] Start: 06-07-2023 Influenza vaccination Influenza Vaccine [facility] Start: 12-28-2021 Depression Screening Depression Screening [facility] Start: 2009 Fall Risk Screening Fall Risk Screening [facility] Start: 1994 Administration of varicella zoster vaccine Zoster (Shingles) Vaccine (1 of 2) [facility] Start: 12-15-1963 DTaP,Tdap and Td Vaccines (1 - Tdap) DTaP,Tdap and Td Vaccines (1 - Tdap) [facility] Start: 1962 Adult BMI Follow Up Plan Adult BMI Follow Up Plan [facility] Start: 1944 Medicare Annual Wellness Visit Medicare Annual Wellness Visit [facility] Immunizations Immunization Date Immunization Notes Care Provider Lai montemayor 07-18-2020 Seasonal trivalent influenza vaccine, adjuvanted, preservative free Luis Kb PA-C Work Phone: [facility] 07-18-2020 influenza virus vacc ine, unspecified formulation Luis Kb PA-C Work Phone: [facility] 07-22-2019 Seasonal trivalent influenza vaccine, adjuvanted, preservative free Luis Kb PA-C Work Phone: [facility] 07-14-2018 Seasonal trivalent influenza vaccine, adjuvanted, preservative free Luis Kb PA-C Work Phone: [facility] 07-15-2017 pneumococcal conjuga te vaccine, 13 valent Luis Kb PA-C Work Phone: [facility] 07-08-2017 influenza, high dose seasonal, preservative-free Luis Kb PA-C Work Phone: [facility] 07-25-2016 influenza, high dose seasonal, preservative-free Luis Kb PA-C Work Phone: [facility] 07-11-2015 influenza, high dose seasonal, preservative-free Luis Kb PA-C Work Phone: [facility] 07-16-2014 influenza, seasonal, injectable Luis Kb PA-C Work Phone: [facility] 07-10-2013 influenza, seasonal, injectable Luis Kb PA-C Work Phone: [facility] 08-08-2012 influenza virus vacc ine, unspecified formulation Luis Kb PA-C Work Phone: [facility] 08-08-2012 pneumococcal polysaccharide vaccine, 23 valent Luis Kb PA-C Work Phone: [facility] 07-11-2011 influenza virus vacc ine, unspecified formulation Luis Kb PA-C Work Phone: [facility] 08-15-2010 influenza virus vacc ine, unspecified formulation Luis Kb PA-C Work Phone: [facility] 07-26-2009 influenza virus vacc ine, unspecified formulation Luis Kb PA-C Work Phone: [facility] 08-04-2008 influenza virus vacc ine, unspecified formulation Luis Kb PA-C Work Phone: [facility] 08-13-2007 influenza virus vacc ine, unspecified formulation Luis Kb PA-C Work Phone: [facility] 08-11-2004 influenza virus vacc ine, unspecified formulation Luis Kb PA-C Work Phone: [facility] 08-09-2003 influenza virus vacc ine, unspecified formulation Luis Kb PA-C Work Phone: [facility] 08-09-2003 pneumococcal polysaccharide vaccine, 23 valent Luis Kb PA-C Work Phone: [facility] Payers Date Payer Category Payer Medicare [employer] MEDICARE A ETNA MEDICARE PLAN (HMO) [id number] 2021-Present [phone] [address] [place] [address] [id number] 1960 Medicare [id number] 1944 Unknown [id number] [id number]3 1944 Unknown [id number] 2.16.840.1.933338.3.579.2.593 1944 Unknown [id number] 2.16.840.1.000027.3.579.2.593 1944 Unknown [id number] 2.16.840.1.941279.3.579.2.593 1944 Unknown [id number] 2.16.840.1.050487.3.579.2.593 1944 Unknown [id number] 2.16.840.1.808081.3.579.2.593 1944 Unknown [id number] 2.16.840.1.327446.3.579.2.593 1944 Unknown [id number] 2.16.840.1.752036.3.579.2.593 1944 Unknown [id number] 2.16.840.1.327505.3.579.2.593 1944 Unknown [id number] 2.16.840.1.086654.3.579.2.593 1944 Unknown [id number] 2.16.840.1.577710.3.579.2.593 1944 Unknown [id number] 2.16.840.1.218830.3.579.2.593 1944 Unknown [id number] 2.16.840.1.963009.3.579.2.593 1944 Unknown [id number] 2.16.840.1.477811.3.579.2.593 1944 Unknown [id number] 2.16.840.1.819943.3.579.2.593 1944 Unknown [id number] 2.16.840.1.558749.3.579.2.593 1944 Unknown [id number] 2.16.840.1.569542.3.579.2.1286 1944 Unknown [id number] 2.16.840.1.740917.3.579.2.1259 1944 Unknown [id number] 2.16.840.1.808608.3.579.2.1259 1944 Unknown [id number] 2.16.840.1.624980.3.579.2.1259 1944 Unknown [id number] 2.16.840.1.600420.3.579.2.1259 1944 Unknown [id number] 2.16.840.1.530482.3.579.2.9 1944 Unknown [id number] 2.16.840.1.402745.3.579.2.1259 1944 Unknown [id number] 2.16.840.1.693028.3.579.2.9 1944 Unknown [id number] 2.16.840.1.283074.3.579.2.1258 Unknown Social History Date Type Detail Facility Unknown if ever smoked [facility] Other Start: 12-28-2020 End: 03-19-2023 Sex Assigned At [facility] Other Start: 09-20-2022 Tobacco smoking status [facility] Ex-smoker [facility] End: 10-07-1969 History of tobacco use Current smoker [facility] End: 10-07-1969 History of tobacco use Cigarette Smoker [facility] Start: 09-20-2022 Tobacco use and exposure Smokeless tobacco non-user [facility] Start: 03-19-2023 Alcohol intake Ex-drinker (finding) [facility] Start: 12-28-2020 End: 03-19-2023 History of Social function [facility] Do you belong to any clubs or organizations such as pentecostalism groups, unions, fraternal or athletic groups, or school groups? No [facility] Are you now , , , , never or living with a partner? [facility] How hard is it for y ou to pay for the very basics like food, housing, medical care, and heating Not hard at all [facility] Do you feel stress - tense, restless, nervous, or anxious, or unable to sleep at night because your mind is troubled all the time - these days [OSQ] Not at all [facility] Start: 1945 Sex Assigned At Not on file [facility] Goals Date Patient Goal Desired Activity /State Personal health goal Comment on above: Formatting of this n ote might be different from the original. Evaluation of progress towards goal: return home with homecare and support from [facility], children and grandchildren Clinical Notes 01-18-2022 to 05-11-2024 Note Date & Type Note Facility 05-11-2024 Note [facility] Cardiology Clinic Note Chief Complaint: Patient here for follow up [facility] discharge back in February 2024. She was admitted for chest pain and CHF, and seen as inpatient consult by Dr. Catherine. Chest pain has resolved, and she states LOZANO remains the same. She isn't sure which dose of isosorbide she's currently taking. Feels much better today than she did in February. HPI: Kylah Robin is a 78 y.o. female Doing okay; her shortness of breath is stable. She has had no further chest pain. She brought in a log of her blood pressure readings from home; there were several measurements in the 160s to 170s systolic. Cardiology ROS: Review of Systems Cardiovascular: Positive for dyspnea on exertion, irregular heartbeat and palpitations. Musculoskeletal: Positive for myalgias. Neurological: Positive for light-headedness. All other systems reviewed and are negative. Past Medical History She has a past medical history of Chronic kidney disease, Coronary artery disease, Diabetes mellitus ([facility]), Hyperlipidemia, and Hypertension. Surgical History She has a past surgical history that includes Coronary artery bypass graft and Cardiac catheterization. Social History She reports that she has quit smoking. Her smoking use included cigarettes. She has never used smokeless tobacco. She reports that she does not currently use alcohol. No history on file for drug use. Family History No family history on file. Allergies Amlodipine, Doxazosin, Iodinated contrast media, Sulfamethoxazole, Amoxicillin-pot clavulanate, and Sulfamethoxazole-trimethoprim Medications Current Outpatient Medications: allopurinol (Zyloprim) 300 mg tablet, Take 1 tablet by mouth in the morning., Disp: , Rfl: aspirin 81 mg EC tablet, Take 81 mg by mouth in the morning., Disp: , Rfl: atorvastatin (Lipitor) 80 mg tablet, Take 80 mg by mouth at bedtime., Disp: , Rfl: carvedilol (Coreg) 25 mg tablet, TAKE 2 TABLETS BY MOUTH TWICE DAILY (IN THE MORNING and BEFORE bedtime), Disp: , Rfl: cloNIDine (Catapres) 0.1 mg tablet, Take 0.2 mg by mouth in the morning and at bedtime., Disp: , Rfl: ferrous sulfate 325 (65 Fe) MG tablet, Take 1 tablet by mouth 2 times daily., Disp: , Rfl: furosemide (Lasix) 20 mg tablet, Take 20 mg by mouth in the morning., Disp: , Rfl: hydrALAZINE (Apresoline) 10 mg tablet, Take 1 tablet (10 mg) by mouth three times daily., Disp: 270 tablet, Rfl: 3 insulin detemir (Levemir FlexPen) 100 unit/mL (3 mL) injection pen, INJECT 50 UNITS SUBCUTANEOUSLY (under the skin) TWICE DAILY, Disp: , Rfl: isosorbide mononitrate ER (Imdur) 30 mg 24 hr tablet, Take 30 mg by mouth in the morning., Disp: , Rfl: isosorbide mononitrate ER (Imdur) 60 mg 24 hr tablet, 1 (one) time each day at the same time., Disp: , Rfl: levothyroxine (Synthroid, Levoxyl) 125 mcg tablet, TAKE 1 TABLET BY MOUTH EVERY MORNING ON AN EMPTY STOMACH, Disp: , Rfl: liothyronine (Cytomel) 5 mcg tablet, Take 10 mcg by mouth in the morning., Disp: , Rfl: magnesium oxide (Mag-Ox) 400 mg (241.3 mg magnesium) tablet, Take 1 tablet by mouth in the morning, afternoon, and at bedtime., Disp: , Rfl: nitroglycerin (Nitrostat) 0.4 mg SL tablet, Place 1 tablet as needed by sublingual route as directed., Disp: , Rfl: NovoLOG Flexpen U-100 Insulin 100 unit/mL (3 mL) injection pen, INJECT 12 UNITS SUBCUTANEOUSLY IN THE MORNING, 16 UNITS at lunch, and 22 UNITS at dinner, Disp: , Rfl: pantoprazole (ProtoNix) 40 mg EC tablet, Take 1 tablet by mouth in the morning., Disp: , Rfl: Last Recorded Vitals BP 134/72 (BP Location: Right arm, Patient Position: Sitting) Pulse 73 Ht 1.689 m (5' 6.5 ) Wt 81.6 kg (180 lb) SpO2 98% BMI 28.62 kg/m??? Physical Examination: GENERAL: alert and oriented [...] PSYCH: appropriate mood, affect, and judgement. Investigations: Stress test 03/04/2024: Conclusion: 1. Small area of mild decreased uptake in the inferior wall extending to the apex stable on rest images 2. No reversible ischemia 3. Abnormal exercise stress test secondary to EKG changes Cardiac Cath 2020 Patient Information Patient Name Kylah Robin Sex Female Physicians Panel Physicians Referring Physician Kassie Nicole MD (Primary) Anastasia Burch, DO Procedures Coronary angiogram and left ventricular gram/pressure Indications (more content not included)... [facility] 02-10-2024 Note [facility] Cardiology Clinic Note Chief Complaint: Patient here to re-establish care. She was recently admitted to [facility] for hypertension. Had CABG since [...] longstanding diabetic. PAST MEDICAL HISTORY: Diabetes mellitus ([facility]) Hypertensive urgency Arthritis Dyspnea Chest pain Unstable angina ([facility]) Obesity (BMI 30-39.9) H/O four vessel coronary artery bypass graft Paroxysmal atrial fibrillation ([facility]) Atherosclerosis of [place] coronary artery of [place] heart without angina pectoris Obesity (BMI 30-39.9) [...] Physician Kassie Nicole MD (Primary) Anastasia Burch, Procedures Coronary angiogram and left ventricular gram/pressure [...] office She is to follow-up with her healthcare translator given her chronic kidney disease Return to clinic in 3 months or sooner should problems arise Carlie Catherine MD (more content not included)... [facility] 11-18-2023 Evaluation note Encounter Date Diagnosis Assessment [...] potassium improved with dietary restriction and Lasix. [facility] Other 01-29-2024 Evaluation note* Encounter Date Diagnosis Assessment Notes Treatment Notes Treatment Clinical Notes Oct, Anemia of renal disease (ICD-10 - D63.1) Oct, CKD (chronic kidney disease) stage 4, GFR 15-29 ml/min (ICD-10 - N18.4) [facility] Other 01-09-2024 Evaluation note* Encounter Date Diagnosis [...] potassium improved with dietary restriction and Lasix. [facility] Other 12-04-2023 Evaluation note* Encounter Date Diagnosis [...] 4, GFR 15-29 ml/min (ICD-10 - N18.4) [facility] 11-21-2023 Evaluation note* Encounter Date Diagnosis Assessment Notes Treatment Notes Treatment Clinical Notes Aug, Anemia of renal disease (ICD-10 - D63.1) Aug, CKD (chronic kidney disease) stage 4, GFR 15-29 ml/min (ICD-10 - N18.4) [facility] Other 11-09-2023 Evaluation note* Encounter Date Diagnosis [...] of kidney mass hydronephrosis or kidney stones. [facility] Other 10-26-2023 Evaluation note* Encounter Date Diagnosis [...] potassium improved with dietary restriction and Lasix. [facility] Other 09-18-2023 Evaluation note* Encounter Date Diagnosis [...] potassium improved with dietary restriction and Lasix. [facility] Other 08-31-2023 Evaluation note* Encounter Date Diagnosis [...] potassium improved with dietary restriction and Lasix. [facility] Other 07-25-2023 Evaluation note* Encounter Date Diagnosis [...] to normal with dietary restriction and Lasix. [facility] Other 07-01-2023 Evaluation note* Encounter Date Diagnosis Assessment Notes Treatment Notes Treatment Clinical Notes Apr, CKD (chronic kidney disease) stage 4, GFR 15-29 ml/min (ICD-10 - N18.4) Apr, Anemia of renal disease (ICD-10 - D63.1) [facility] Other 06-27-2023 Evaluation note* Encounter Date Diagnosis [...] to normal with dietary restriction and Lasix. [facility] Other 06-01-2023 Evaluation note* Encounter Date Diagnosis [...] potassium diet and provide information about it. [facility] Other 03-16-2023 Evaluation note* Encounter Date Diagnosis [...] to Continue Vit D 5000 units daily [facility] Other 01-30-2023 Evaluation note* Encounter Date Diagnosis [...] to Continue Vit D 5000 units daily [facility] Other 12-22-2022 Evaluation note* Encounter Date Diagnosis [...] to Continue Vit D 5000 units daily [facility] Other 11-16-2022 Evaluation note* Encounter Date Diagnosis [...] to Continue Vit D 5000 units daily [facility] Other 08-04-2022 Evaluation note* Encounter Date Diagnosis Assessment Notes Treatment Notes Treatment Clinical Notes May, Hypertensive chronic kidney disease with stage 1 through stage 4 chronic kidney disease, or unspecified chronic kidney disease (ICD-10 - I12.9) [facility] Other 08-02-2022 Evaluation note* Encounter Date Diagnosis [...] to Continue Vit D 5000 units daily [facility] Other 07-19-2022 Evaluation note* Encounter Date Diagnosis Assessment Notes Treatment Notes Treatment Clinical Notes Apr, Hypertensive chronic kidney disease with stage 1 through stage 4 chronic kidney disease, or unspecified chronic kidney disease (ICD-10 - I12.9) [facility] Other 04-14-2022 Evaluation note* Encounter Date Diagnosis [...] to take Vit D 1000 units daily [facility] Other Evaluation noteNo InformationNort [facility] Other Evaluation note* Diagnosis Atherosclerosis of [place] coronary artery of [place] heart without angina 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 Hypertensive urgency Shortness of breath Paroxysmal atrial fibrillation (CMS-HCC) Atrial fibrillation Localized edema Edema [facility] - [facility]orted* Type [...] History SEE ABOVE Hospitalization History COVID 09/2020 [facility] Other history general Narrative - Reported* Type [...] History SEE ABOVE Hospitalization History COVID 09/2020 [facility] Other history general Narrative - Reported* Type [...] History SEE ABOVE Hospitalization History COVID 09/2020 [facility] Other History general Narrative - [employer] Other History general Narrative - Reported* Type [...] History SEE ABOVE Hospitalization History COVID 09/2020 [facility] Other InstructionsNot on filedocumented in this encounter [employer] Summary Purpose Family History No Family [...] and content) DATE CREATED AUTHOR 04/02/2018 [facility] DATE CREATED AUTHOR AUTHOR'S ORGANIZ ATION 01/27/2023 [facility] DATE CREATED AUTHOR AUTHOR'S ORGANIZ ATION 01/18/2024 [facility] DATE CREATED AUTHOR AUTHOR'S ORGANIZ ATION 05/12/2024 [facility] DATE CREATED AUTHOR AUTHOR'S ORGANIZ ATION 05/26/2024 [facility] EPIC REASON FOR VISIT (unrecogniz ed section and content) Reason Comments Med Refill Care Teams (unrecognized sec tion and content) 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 [employer] [facility]. provides no warranty or guarantee of the accuracy or completeness of information in this document.
[2024-05-28 09:32] LABS: Basophils Percent Auto 0.4 % (0.2-2.0); Eosinophils Absolute Auto 0.1 10^3/uL (0.0-0.7); Eosinophils Percent Auto 0.9 % (0.9-7.0); Hematocrit 30.2 % (36.0-48.0); Hemoglobin 10.3 g/dL (12.0-16.0); Immature Granulocytes Abs Auto 0.02 10^3/uL (0.00-0.03); Immature Granulocytes Pct Auto 0.3 % (0.0-0.5); Lymphocytes Absolute Auto 1.8 10^3/uL (1.2-3.8); Lymphocytes Percent Auto 22.5 % (20.5-60.0); Mean Corpuscular HGB Conc 34.1 g/dL (29.9-35.2); Mean Corpuscular Hemoglobin 30.7 pg (26.7-34.0); Mean Corpuscular Volume 89.9 fL (81.0-99.0); Mean Platelet Volume 9.3 fL (9.5-13.5); Monocytes Absolute Auto 0.8 10^3/uL (0.3-0.8); Monocytes Percent Auto 10.1 % (1.7-12.0); Neutrophils Absolute Auto 5.3 10^3/uL (1.4-6.5); Neutrophils Percent Auto 65.8 % (43.0-75.0); Platelet Count 195 10^3/uL (150-450); Red Blood Count 3.36 10^6/uL (4.20-5.40); Red Cell Distribution Width 14.6 % (11.0-15.0)
[2024-05-28 09:33] LABS: Bilirubin Urine NEGATIVE (NEGATIVE); Blood Urine NEGATIVE (NEGATIVE); Clarity Urine CLEAR (CLEAR); Color Urine LT. YELLOW (YELLOW); Glucose Urine UA NEGATIVE (NEGATIVE); Ketones Urine NEGATIVE (NEGATIVE); Leukocyte Esterase Urine NEGATIVE (NEGATIVE); Nitrite Urine NEGATIVE (NEGATIVE); Protein Urine 100 mg/dL (NEG/TRACE); Specific Gravity Urine 1.015 (1.005-1.025); Urobilinogen Urine 0.2 EU/dL (0.2-1.0); pH Urine 6.5 (5.0-9.0)
[2024-05-28 09:48] LABS: Bacteria Urine NONE SEEN #/HPF (NONE SEEN); RBC Urine NONE SEEN #/HPF (0-2); WBC Urine 0-2 #/HPF (NONE SEEN)
[2024-05-28 09:49] LABS: Mucus Urine NONE SEEN (NONE SEEN); Squamous Epithelial Cell Urine MODERATE #/LPF (NONE/RARE)
[2024-05-28 09:50] LABS: Urine Culture Indicated ALREADY ORDERED
[2024-05-28 10:31] LABS: Alanine Aminotransferase 52 U/L (14-59); Albumin Globulin Ratio 0.8; Alkaline Phosphatase 74 U/L (46-116); Anion Gap 14.3; Aspartate Amino Transferase 22 U/L (15-37); Bilirubin Total 0.8 mg/dL (0.2-1.0); Carbon Dioxide 23.5 mmol/L (21.0-32.0); Chloride 100 mmol/L (98-107); Estimated GFR (African America 33 (>=60); Estimated GFR (Non-African Ame 27 (>=60); Globulin 3.7 g/dL; Glucose 224 mg/dL (74-106); Potassium 4.8 mmol/L (3.5-5.1); Sodium 133 mmol/L (136-145); Total Protein 6.7 g/dL (6.4-8.2); Troponin I High Sensitivity 8.5 pg/mL (4.0-51.3)
== END 2024-05-28 09:10 | disposition home or self-care (01) ==
LOC: LAB 09:10
PROVIDERS: PCP Family Medicine; Visit Provider Family Medicine
DX: R07.9 Chest pain, unspecified (principal); N39.0 Urinary tract infection, site not specified; N18.4 Chronic kidney disease, stage 4 (severe); E87.5 Hyperkalemia; D64.9 Anemia, unspecified; I12.9 Hypertensive chronic kidney disease with stage 1 through stage 4 chronic kidney disease, or unspecified chronic kidney disease
CPT/HCPCS: 36415; 80053; 81001; 83880; 84484; 85025; 87086

== ENCOUNTER 2024-06-09 09:24 | Outpatient (OUT) | payer MEDICARE, SELFPAY ==
--- OUTSIDE RECORDS SUMMARY | 2024-06-09 09:38 | XMS_ITS | CCD ---
Author Organization [facility] Care Team Providers Care Tattoo Technician Name Role Phone PHYSICIAN, DEFAULT Unavailable [...] Unavailable Fiorellay Dhruv NESS Primary Care Provider [phone] THUAN DELVALLE Attending Unavailable DHRUV RUBI Referring [...] Drug Allergy 03-28-20 05 [facility] (20 sources) Amoxicillin / Clavulanate Drug Allergy 11-23-19 21 [facility] Other (20 sources) Contrast media Propensity to adverse reactions Unknown [facility] Other (2 sources) Doxazosin; Translations: [doxazosin] Drug Allergy Unknown [facility] Other (20 sources) Sulfamethoxazole / Trimethoprim Drug Allergy 11-23-19 21 [place] [employer] Other (20 sources) Doxazosin; Translations: [DOXAZOSIN] Drug Allergy 11-23-19 21 Unknown [facility] Other (9 sources) Amoxicillin / Clavulanate; Translations: [Augmentin] Drug Allergy 11-16-19 16 Unknown [facility] Repository (1 source) amLODIPine Drug Allergy 04-25-20 14 [facility] (1 source) Sulfamethoxazole / Trimethoprim Drug Allergy 03-09-20 13 [facility] (3 sources) Iodinated Contrast Media; Translations: [IODINATED CONTRAST MEDIA] Propensity to adverse reactions to drug 11-23-19 21 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 [employer] (2 sources) Sulfamethoxazole / Trimethoprim; Translations: [SULFAMETHOXAZOLE-T RIMETHOPRIM] Drug Allergy 08-04-20 15 [facility] Repository (2 sources) AMOXICILLIN-POT CLAVULANATE; Translations: [AMOXICILLIN-POT CLAVULANATE] Propensity to adverse reactions to drug (disorder) 11-23-19 21 [facility] Repository (1 source) Sulfamethoxazole; Translations: [SULFAMETHOXAZOLE] Drug Allergy 03-12-20 23 [facility] Repository Medications Current Medications Medication Drug Class(es) [...] coronary artery bypass graft , 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 , Paroxysmal atrial [...] (LIPITOR) 80 mg tablet Indications: 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 , H/O four [...] Active docusate sodium 50 mg / sennosides, senior living 8.6 mg oral tablet (5 sources) take 1 tablet by mouth every twelve hours Sennosides-Docusate Sodium 8.6-50 MG 1 tablet in the evening as needed Orally every 12 hours Active epoetin johnna-epbx 17252 UNT/ML Injectable Solution [Retacrit] (14 sources) Retacrit 42004 U NIT/ML as directed Injection Active ferrous [...] 0 12/05/2021 Active take 2 tablets by [facility] every twenty-four hours Liothyronine Sodium 5 MCG 2 tablets on a n empty stomach Orally Once a day Active take 2 tablets by [facility] every twenty-four hours lisinopril 10 mg [...] in the morning. 0 12/19/2020 Active retacrit 33626 unit/ml solution (5 sources) Retacrit 30002 UNIT/ML as directed Injection Active Sennosides-Docusate Sodium [...] Coronary atherosclerosis; Translations: [Atherosclerotic heart disease of gamb[place] coronary artery without angina pectoris] Onset: 1 [...] Range Facility Office Visiton 05-11-2024 Follow-up visit [id number] Garima Robin 1945 F Date Provider Department Center 05/11/2024 [facility] No family history on file Level of Service:51987 HI OFFICE/OUTPATIENT ESTABLISHED MOD MDM 30 MIN Normal [facility] Office Visiton 02-10-2024 Follow-up visit [id number] Garima Robin 1945 F Date Provider Department [place] 02/10/2024 CARLIE TORRES [facility] No family history on file Level of Service:58465 HI OFFICE/OUTPATIENT ESTABLISHED MOD MDM 30 MIN Normal [facility] HEMOGRAM AND PLATELon 2022 Hematocrit (Bld) [Volume fraction] 28.8 % Critically low 36.0-48.0 [facility] Comment on above: Performed By: #### H H #### [facility] [address] [place] [address] Dr. Ember Teague Hemoglobin (Bld) [Mass/Vol] 9.6 g/dL Critically low 12.0-16.0 [facility] Comment on above: Performed By: #### H H #### [facility] [address] [address] [address] Ember Teague MCH (RBC) [Entitic mass] 30.7 pg Normal 26.7-34.0 [facility] Comment on above: Performed By: #### H H #### [facility] [address] [address] [address] Ember Teague MCHC (RBC) [Mass/Vol] 33.3 g/dL Normal 29.9-35.2 [facility] Comment on above: Performed By: #### H H #### [facility] [address] [address] [address] Ember Teague MCV (RBC) [Entitic vol] 92.0 fL Normal 81.0-99.0 [facility] Comment on above: Performed By: #### H H #### [facility] [address] [place] [address] Dr. Ember Teague PLT 214 103/ul Normal 150-450 [facility] Comment on above: Performed By: #### H H #### [facility] [address] [address] [address] Ember Teague RBC 3.13 106/ul Critically low 4.20-5.40 [facility] Comment on above: Performed By: #### H H #### [facility] [address] [address] [address] Ember Teague WBC 7.4 103/ul Normal 4.0-11.0 [facility] Comment on above: Performed By: #### H H #### [facility] [address] [place] [address] Dr. Ember Teague MAGNESIUMon 01-22-2023 Magnesium [Mass/Vol] 1.8 mg/dL Normal 1.8-2.4 [facility] Comment on above: Performed By: #### M G, RENAL #### [facility] [address] [place] [address] Dr. Ember Teague RENAL FUNCTION PANELon 01-22 Albumin [Mass/Vol] 3.6 g/dL Normal 3.4-5.0 [facility] Comment on above: Performed By: #### M G, RENAL #### [facility] [address] [address] [address] Ember Teague Calcium [Mass/Vol] 9.7 mg/dL Normal 8.5-10.1 [facility] Comment on above: Performed By: #### M G, RENAL #### [facility] [address] [place] [address] Dr. Ember Teague Chloride [Moles/Vol] 105 mmol/L Normal 98-107 [facility] Comment on above: Performed By: #### M G, RENAL #### [facility] [address] [address] [address] Ember Teague CO2 [Moles/Vol] 22.6 mmol/L Normal 21.0-32.0 [facility] Comment on above: Performed By: #### M G, RENAL #### [facility] [address] [address] [address] Ember Teague Creatinine [Mass/Vol] 2.18 mg/dL Critically high 0.55-1.02 [facility] Comment on above: Performed By: #### M G, RENAL #### [facility] [address] [address] [address] Ember Teague EGFR-AF BAHRAINI 26 mL/min/1.73m2 Critically low >=60 [facility] Comment on above: Performed By: #### M G, RENAL #### [facility] [address] [address] [address] Ember Teague EGFR-NON AF BAHRAINI 22 mL/min/1.73m2 Critically low >=60 [facility] Comment on above: Performed By: #### M G, RENAL #### [facility] [address] [address] [address] Ember Teague Glucose [Mass/Vol] 134 mg/dL Critically high 74-106 [facility] Comment on above: Performed By: #### M G, RENAL #### [facility] [address] [address] [address] Ember Teague Phosphate [Mass/Vol] 4.6 mg/dL Normal 2.6-4.7 [facility] Comment on above: Performed By: #### M G, RENAL #### [facility] [address] [place] [address] Dr. Ember Teague Potassium [Moles/Vol] 5.1 mmol/L Normal 3.5-5.1 [facility] Comment on above: Performed By: #### M G, RENAL #### [facility] [address] [place] [address] Dr. Ember Teague Sodium [Moles/Vol] 138 mmol/L Normal 136-145 [facility] Comment on above: Performed By: #### M G, RENAL #### [facility] [address] [address] [address] Ember Teague Urea nitrogen [Mass/Vol] 61.0 mg/dL Critically high 7.0-18.0 [facility] Comment on above: Performed By: #### M G, RENAL #### [facility] [address] [address] [address] Ember Teague MG MAMM SCREEN 3D MAY CADon 12-17-2022 MG MAMM SCREEN 3D MAY CAD Patient: KYLAH ROBIN Exam Date: 12/17/2022 : 1945 Gender:F Ordering : DR DHRUV RUBI . Admission #: [id number] Family : Order #: [id number] CLICK HERE TO VIEW EXAM RADIOLOGY REPORT [...] lung cancer at age 61. LOCATION: [facility] BREAST COMPOSITION: Scattered areas fibroglandular density. [...] MD on 12/17/2022 at 11:59 Normal [facility] FERRITINon 12-10-2022 Ferritin [Mass/Vol] 681.0 ng/mL Critically high 8.0-252.0 [facility] Comment on above: Performed By: #### P THINT #### [facility] [address] [address] [address] Ember Teague HEMOGRAM AND PLATELon 2022 Hematocrit (Bld) [Volume fraction] 27.1 % Critically low 36.0-48.0 [facility] Comment on above: Performed By: #### C VDTBH #### [facility] [address] [address] [address] Ember Teague Hemoglobin (Bld) [Mass/Vol] 9.7 g/dL Critically low 12.0-16.0 [facility] Comment on above: Performed By: #### C VDTBH #### [facility] [address] [place] [address] Dr. Ember Teague MCH (RBC) [Entitic mass] 31.4 pg Normal 26.7-34.0 [facility] Comment on above: Performed By: #### C VDTBH #### [facility] [address] [place] [address] Dr. Ember Teague MCHC (RBC) [Mass/Vol] 35.8 g/dL Critically high 29.9-35.2 [facility] Comment on above: Performed By: #### C VDTBH #### [facility] [address] [place] [address] Dr. Ember Teague MCV (RBC) [Entitic vol] 87.7 fL Normal 81.0-99.0 [facility] Comment on above: Performed By: #### C VDTBH #### [facility] [address] [place] [address] Dr. Ember Teague PLT 218 103/ul Normal 150-450 [facility] Comment on above: Performed By: #### C VDTBH #### [facility] [address] [place] [address] Dr. Ember Teague RBC 3.09 106/ul Critically low 4.20-5.40 [facility] Comment on above: Performed By: #### C VDTBH #### [facility] [address] [place] [address] Dr. Ember Teague WBC 6.6 103/ul Normal 4.0-11.0 [facility] Comment on above: Performed By: #### C VDTBH #### [facility] [address] [place] [address] Dr. Ember Teague IRON AND TIBCon 12-10-2022 % SATURATION 30.2 % Normal [facility] Comment on above: Performed By: #### P THINT #### [facility] [address] [place] [address] Dr. Ember Teague Iron [Mass/Vol] 84.0 ug/dL Normal 50.0-170.0 [facility] Comment on above: Performed By: #### P THINT #### [facility] [address] [place] [address] Dr. Ember Teague TIBC DIRECT 278.0 ug/dL Normal 250.0-450.0 [facility] Comment on above: Performed By: #### P THINT #### [facility] [address] [place] [address] Dr. Ember Teague XR FOOT MAY MIN [...] BENI APARICIO Date: 2022-11-20 14:03 Normal [facility] HEMOGRAM AND PLATELon 2022 Hematocrit (Bld) [Volume fraction] 27.7 % Critically low 36.0-48.0 [facility] Comment on above: Performed By: #### R ENAL #### [facility] [address] [address] [address] Ember Teague Hemoglobin (Bld) [Mass/Vol] 10.0 g/dL Critically low 12.0-16.0 [facility] Comment on above: Performed By: #### R ENAL #### [facility] [address] [place] [address] Dr. Ember Teague MCH (RBC) [Entitic mass] 31.6 pg Normal 26.7-34.0 [facility] Comment on above: Performed By: #### R ENAL #### [facility] [address] [address] [address] Ember Teague MCHC (RBC) [Mass/Vol] 36.1 g/dL Critically high 29.9-35.2 [facility] Comment on above: Performed By: #### R ENAL #### [facility] [address] [address] [address] Ember Teague MCV (RBC) [Entitic vol] 87.7 fL Normal 81.0-99.0 [facility] Comment on above: Performed By: #### R ENAL #### [facility] [address] [address] [address] Ember Teague PLT 182 103/ul Normal 150-450 [facility] Comment on above: Performed By: #### R ENAL #### [facility] [address] [place] [address] Dr. Ember Teague RBC 3.16 106/ul Critically low 4.20-5.40 [facility] Comment on above: Performed By: #### R ENAL #### [facility] [address] [place] [address] Dr. Ember Teague WBC 6.8 103/ul Normal 4.0-11.0 [facility] Comment on above: Performed By: #### R ENAL #### [facility] [address] [place] [address] Dr. Ember Teague PROF CHEM 8 (BAS METB)on Anion gap [Moles/Vol] 17.6 mmol/L Normal [facility] Comment on above: Performed By: #### C VDTBH #### [facility] [address] [place] [address] Dr. Ember Teague Calcium [Mass/Vol] 9.0 mg/dL Normal 8.5-10.1 [facility] Comment on above: Performed By: #### C VDTBH #### [facility] [address] [place] [address] Dr. Ember Teague Chloride [Moles/Vol] 104 mmol/L Normal 98-107 [facility] Comment on above: Performed By: #### C VDTBH #### [facility] [address] [address] [address] Ember Teague CO2 [Moles/Vol] 22.2 mmol/L Normal 21.0-32.0 [facility] Comment on above: Performed By: #### C VDTBH #### [facility] [address] [address] [address] Ember Teague Creatinine [Mass/Vol] 2.03 mg/dL Critically high 0.55-1.02 [facility] Comment on above: Performed By: #### C VDTBH #### [facility] [address] [address] [address] Ember Teague EGFR-AF BAHRAINI 29 mL/min/1.73m2 Critically low >=60 [facility] Comment on above: Performed By: #### C VDTBH #### [facility] [address] [address] [address] Ember Teague EGFR-NON AF BAHRAINI 24 mL/min/1.73m2 Critically low >=60 [facility] Comment on above: Performed By: #### C VDTBH #### [facility] [address] [address] [address] Ember Teague Glucose [Mass/Vol] 154 mg/dL Critically high 74-106 [facility] Comment on above: Performed By: #### C VDTBH #### [facility] [address] [address] [address] Ember Teague Potassium [Moles/Vol] 4.8 mmol/L Normal 3.5-5.1 [facility] Comment on above: Performed By: #### C VDTBH #### [facility] [address] [address] [address] Ember Teague Sodium [Moles/Vol] 139 mmol/L Normal 136-145 [facility] Comment on above: Performed By: #### C VDTBH #### [facility] [address] [address] [address] Ember Teague Urea nitrogen [Mass/Vol] 43.0 mg/dL Critically high 7.0-18.0 [facility] Comment on above: Performed By: #### C VDTBH #### [facility] [address] [address] [address] Ember Teague Urea nitrogen/Creatinine [Mass ratio] 21.2 mg/mg Normal [facility] Comment on above: Performed By: #### C VDTBH #### [facility] [address] [address] [address] Ember Teague CULTURE SPUTUMon 10-24-2022 CULTURE SPUTUM Culture Observations : Beta lactamase positive Isolate 1 Haemophilus influenzae Moderate growth of Normal [facility] Comment on above: Performed By: #### R ENAL #### [facility] [address] [address] [address] Ember Teague SPUTUM GRAM STAINon 10-24-19 COMMENTS Normal [facility] Comment on above: Performed By: #### R ENAL #### [facility] [address] [address] [address] Ember Teague DIPHTHEROIDS Normal [facility] Comment on above: Performed By: #### R ENAL #### [facility] [address] [address] [address] Ember Teague EPITHELIALS >25 Normal [facility] Comment on above: Performed By: #### R ENAL #### [facility] [address] [address] [address] Ember Teague FUNGAL ELEMENTS Normal [facility] Comment on above: Performed By: #### R ENAL #### [facility] [address] [address] [address] Ember Teague GRAM NEG BACILLI Normal [facility] Comment on above: Performed By: #### R ENAL #### [facility] [address] [address] [address] Ember Teague GRAM NEG DIPPLOCOCCI FEW Normal [facility] Comment on above: Performed By: #### R ENAL #### [facility] [address] [address] [address] Ember Teague GRAM POS BACILLI FEW Normal [facility] Comment on above: Performed By: #### R ENAL #### [facility] [address] [address] [address] Ember Teague GRAM POSITIVE COCCI MANY Normal [facility] Comment on above: Performed By: #### R ENAL #### [facility] [address] [address] [address] Ember Teague WBC (Bld) [#/Vol] 10*3/uL Normal [facility] Comment on above: Performed By: #### R ENAL #### [facility] [address] [place] [address] Dr. Ember Teague XR CHEST 2 Von [...] ANGELINA BRISENO Date: 2022-10-24 16:22 Normal [facility] FERRITINon 09-18-2022 Ferritin [Mass/Vol] 612.0 ng/mL Critically high 8.0-252.0 [facility] Comment on above: Performed By: #### F ERR, FETIBC #### [facility] [address] [place] [address] Dr. Ember Teague HEMOGRAM AND PLATELon 2021 Hematocrit (Bld) [Volume fraction] 28.1 % Critically low 36.0-48.0 [facility] Comment on above: Performed By: #### C BC #### [facility] [address] [place] [address] Dr. Ember Teague Hemoglobin (Bld) [Mass/Vol] 9.7 g/dL Critically low 12.0-16.0 [facility] Comment on above: Performed By: #### C BC #### [facility] [address] [place] [address] Dr. Ember Teague MCH (RBC) [Entitic mass] 31.3 pg Normal 26.7-34.0 [facility] Comment on above: Performed By: #### C BC #### [facility] [address] [place] [address] Dr. Ember Teague MCHC (RBC) [Mass/Vol] 34.5 g/dL Normal 29.9-35.2 [facility] Comment on above: Performed By: #### C BC #### [facility] [address] [place] [address] Dr. Ember Teague MCV (RBC) [Entitic vol] 90.6 fL Normal 81.0-99.0 [facility] Comment on above: Performed By: #### C BC #### [facility] [address] [place] [address] Dr. Ember Teague PLT 183 103/ul Normal 150-450 [facility] Comment on above: Performed By: #### C BC #### [facility] [address] [place] [address] Dr. Ember Teague RBC 3.10 106/ul Critically low 4.20-5.40 [facility] Comment on above: Performed By: #### C BC #### [facility] [address] [place] [address] Dr. Ember Teague WBC 7.2 103/ul Normal 4.0-11.0 [facility] Comment on above: Performed By: #### C BC #### [facility] [address] [place] [address] Dr. Ember Teague IRON AND TIBCon 09-18-2022 % SATURATION 36.0 % Normal [facility] Comment on above: Performed By: #### F ERR, FETIBC #### [facility] [address] [place] [address] Dr. Ember Teague Iron [Mass/Vol] 77.0 ug/dL Normal 50.0-170.0 [facility] Comment on above: Performed By: #### F ERR, FETIBC #### [facility] [address] [place] [address] Dr. Ember Teague TIBC DIRECT 214.0 ug/dL Critically low 250.0-450.0 [facility] Comment on above: Performed By: #### F ERR, FETIBC #### [facility] [address] [place] [address] Dr. Ember Teague RENAL FUNCTION PANELon 09-18 Albumin [Mass/Vol] 3.7 g/dL Normal 3.4-5.0 [facility] Comment on above: Performed By: #### R ENAL #### [facility] [address] [address] [address] Ember Teague Calcium [Mass/Vol] 9.5 mg/dL Normal 8.5-10.1 [facility] Comment on above: Performed By: #### R ENAL #### [facility] [address] [place] [address] Dr. Ember Teague Chloride [Moles/Vol] 103 mmol/L Normal 98-107 [facility] Comment on above: Performed By: #### R ENAL #### [facility] [address] [place] [address] Dr. Ember Teague CO2 [Moles/Vol] 21.1 mmol/L Normal 21.0-32.0 [facility] Comment on above: Performed By: #### R ENAL #### [facility] [address] [place] [address] Dr. Ember Teague Creatinine [Mass/Vol] 1.85 mg/dL Critically high 0.55-1.02 [facility] Comment on above: Performed By: #### R ENAL #### [facility] [address] [place] [address] Dr. Ember Teague EGFR-AF BAHRAINI 32 mL/min/1.73m2 Critically low >=60 [facility] Comment on above: Performed By: #### R ENAL #### [facility] [address] [place] [address] Dr. Ember Teague EGFR-NON AF BAHRAINI 26 mL/min/1.73m2 Critically low >=60 [facility] Comment on above: Performed By: #### R ENAL #### [facility] [address] [place], [place] [id number] Dr. Ember Teague Glucose [Mass/Vol] 183 mg/dL Critically high 74-106 [facility] Comment on above: Performed By: #### R ENAL #### [facility] [address] [address] [address] Ember Teague Phosphate [Mass/Vol] 3.7 mg/dL Normal 2.6-4.7 [facility] Comment on above: Performed By: #### R ENAL #### [facility] [address] [address] [address] Emebr Teague Potassium [Moles/Vol] 4.9 mmol/L Normal 3.5-5.1 [facility] Comment on above: Performed By: #### R ENAL #### [facility] [address] [place] [address] Dr. Ember Teague Sodium [Moles/Vol] 138 mmol/L Normal 136-145 [facility] Comment on above: Performed By: #### R ENAL #### [facility] [address] [place] [address] Dr. Ember Teague Urea nitrogen [Mass/Vol] 40.0 mg/dL Critically high 7.0-18.0 [facility] Comment on above: Performed By: #### R ENAL #### [facility] [address] [place] [address] Dr. Ember Teague CULTURE URINEon 09-15-2022 CULTURE [...] Trimethoprim/Sulfamet hoxazole <=20 S F Normal [facility] Comment on above: Performed By: #### R ENAL #### [facility] [address] [place] [address] Dr. Ember Teague BNPon 09-11-2022 Natriuretic peptide B (Bld) [Mass/Vol] 408.0 pg/mL Normal <=1,800.0 [facility] Comment on above: Performed By: #### P THINT #### [facility] [address] [place] [address] Dr. Ember Teague CBC AUTO DIFFon 09-11-2022 BASO # 0.0 103/ul Normal 0.0-0.1 [facility] Comment on above: Performed By: #### C BC #### [facility] [address] [place] [address] Dr. Ember Teague Basophils/100 WBC (Bld) 0.3 % Normal 0.2-2.0 [facility] Comment on above: Performed By: #### C BC #### [facility] [address] [place] [address] Dr. Ember Teague EO # 0.1 103/ul Normal 0.0-0.7 [facility] Comment on above: Performed By: #### C BC #### [facility] [address] [place] [address] Dr. Ember Teague Eosinophils/100 WBC (Bld) 1.9 % Normal 0.9-7.0 [facility] Comment on above: Performed By: #### C BC #### [facility] [address] [place] [address] Dr. Ember Teague Erythrocyte distribution width (RBC) [Ratio] 15.2 % Critically high 11.0-15.0 [facility] Comment on above: Performed By: #### C BC #### [facility] [address] [place] [address] Dr. Ember Teague Hematocrit (Bld) [Volume fraction] 26.6 % Critically low 36.0-48.0 [facility] Comment on above: Performed By: #### C BC #### [facility] [address] [place] [address] Dr. Ember Teague Hemoglobin (Bld) [Mass/Vol] 9.0 g/dL Critically low 12.0-16.0 [facility] Comment on above: Performed By: #### C BC #### [facility] [address] [place] [address] Dr. Ember Teague IG # 0.02 10e3/ul Normal 0.00-0.03 [facility] Comment on above: Performed By: #### C BC #### [facility] [address] [place] [address] Dr. Ember Teague IG % 0.3 % Normal 0.0-0.5 [facility] Comment on above: Performed By: #### C BC #### [facility] [address] [place] [address] Dr. Ember Teague LYMPH # 1.9 103/ul Normal 1.2-3.8 [facility] Comment on above: Performed By: #### C BC #### [facility] [address] [place] [address] Dr. Ember Teague Lymphocytes/100 WBC (Bld) 32.4 % Normal 20.5-60.0 [facility] Comment on above: Performed By: #### C BC #### [facility] [address] [place] [address] Dr. Ember Teague MANUAL DIFF REQ NO Normal [facility] Comment on above: Performed By: #### C BC #### [facility] [address] [place] [address] Dr. Ember Teague MCH (RBC) [Entitic mass] 31.1 pg Normal 26.7-34.0 [facility] Comment on above: Performed By: #### C BC #### [facility] [address] [place] [address] Dr. Ember Teague MCHC (RBC) [Mass/Vol] 33.8 g/dL Normal 29.9-35.2 [facility] Comment on above: Performed By: #### C BC #### [facility] [address] [place] [address] Dr. Ember Teague MCV (RBC) [Entitic vol] 92.0 fL Normal 81.0-99.0 [facility] Comment on above: Performed By: #### C BC #### [facility] [address] [address] [address] Ember Teague MONO # 0.6 103/ul Normal 0.3-0.8 [facility] Comment on above: Performed By: #### C BC #### [facility] [address] [address] [address] Ember Teague Monocytes/100 WBC (Bld) 10.0 % Normal 1.7-12.0 [facility] Comment on above: Performed By: #### C BC #### [facility] [address] [place] [address] Dr. Ember Teague NEUT # 3.2 103/ul Normal 1.4-6.5 [facility] Comment on above: Performed By: #### C BC #### [facility] [address] [place] [address] Dr. Ember Teague Neutrophils/100 WBC (Bld) 55.1 % Normal 43.0-75.0 [facility] Comment on above: Performed By: #### C BC #### [facility] [address] [place] [address] Dr. Ember Teague Platelet mean volume (Bld) [Entitic vol] 9.4 fL Critically low 9.5-13.5 [facility] Comment on above: Performed By: #### C BC #### [facility] [address] [place] [address] Dr. Ember Teague PLT 196 103/ul Normal 150-450 [facility] Comment on above: Performed By: #### C BC #### [facility] [address] [place] [address] Dr. Ember Teague RBC 2.89 106/ul Critically low 4.20-5.40 [facility] Comment on above: Performed By: #### C BC #### [facility] [address] [place] [address] Dr. Ember Teague WBC 5.8 103/ul Normal 4.0-11.0 [facility] Comment on above: Performed By: #### C BC #### [facility] [address] [place] [address] Dr. Ember Teague PROF 14(COMP METB)on 022 Albumin [Mass/Vol] 3.7 g/dL Normal 3.4-5.0 [facility] Comment on above: Performed By: #### P THINT #### [facility] [address] [place] [address] Dr. Ember Teague Albumin/Globulin [Mass ratio] 1.0 {ratio} Normal [facility] Comment on above: Performed By: #### P THINT #### [facility] [address] [place] [address] Dr. Ember Teague ALP [Catalytic activity/Vol] 79 U/L Normal 46-116 [facility] Comment on above: Performed By: #### P THINT #### [facility] [address] [place] [address] Dr. Ember Teague ALT [Catalytic activity/Vol] 24 U/L Normal 14-59 [facility] Comment on above: Performed By: #### P THINT #### [facility] [address] [place] [address] Dr. Ember Teague Anion gap [Moles/Vol] 12.8 mmol/L Normal [facility] Comment on above: Performed By: #### P THINT #### [facility] [address] [place] [address] Dr. Ember Teague AST [Catalytic activity/Vol] 17 U/L Normal 15-37 [facility] Comment on above: Performed By: #### P THINT #### [facility] [address] [place] [address] Dr. Ember Teague Bilirubin [Mass/Vol] 0.5 mg/dL Normal 0.2-1.0 [facility] Comment on above: Performed By: #### P THINT #### [facility] [address] [place] [address] Dr. Ember Teague Calcium [Mass/Vol] 9.4 mg/dL Normal 8.5-10.1 [facility] Comment on above: Performed By: #### P THINT #### [facility] [address] [address] [address] Ember Teague Chloride [Moles/Vol] 101 mmol/L Normal 98-107 [facility] Comment on above: Performed By: #### P THINT #### [facility] [address] [address] [address] Ember Teague CO2 [Moles/Vol] 24.3 mmol/L Normal 21.0-32.0 [facility] Comment on above: Performed By: #### P THINT #### [facility] [address] [address] [address] Ember Teague Creatinine [Mass/Vol] 2.84 mg/dL Critically high 0.55-1.02 [facility] Comment on above: Performed By: #### P THINT #### [facility] [address] [address] [address] Ember Teague EGFR-AF BAHRAINI 20 mL/min/1.73m2 Critically low >=60 [facility] Comment on above: Performed By: #### P THINT #### [facility] [address] [address] [address] Ember Teague EGFR-NON AF BAHRAINI 16 mL/min/1.73m2 Critically low >=60 [facility] Comment on above: Performed By: #### P THINT #### [facility] [address] [address] [address] Ember Teague Globulin (S) [Mass/Vol] 3.7 g/dL Normal [facility] Comment on above: Performed By: #### P THINT #### [facility] [address] [address] [address] Ember Teague Glucose [Mass/Vol] 174 mg/dL Critically high 74-106 [facility] Comment on above: Performed By: #### P THINT #### [facility] [address] [address] [address] Ember Teague Potassium [Moles/Vol] 5.1 mmol/L Normal 3.5-5.1 [facility] Comment on above: Performed By: #### P THINT #### [facility] [address] [place], [place] [address] Dr. Ember Teague Protein [Mass/Vol] 7.4 g/dL Normal 6.4-8.2 [facility] Comment on above: Performed By: #### P THINT #### [facility] [address] [place], [place] [address] Dr. Ember Teague Sodium [Moles/Vol] 133 mmol/L Critically low 136-145 [facility] Comment on above: Performed By: #### P THINT #### [facility] [address] [address] [address] Ember Teague Urea nitrogen [Mass/Vol] 68.0 mg/dL Critically high 7.0-18.0 [facility] Comment on above: Performed By: #### P THINT #### [facility] [address] [address] [address] Ember Teague Urea nitrogen/Creatinine [Mass ratio] 23.9 mg/mg Normal [facility] Comment on above: Performed By: #### P THINT #### [facility] [address] [address] [address] Ember Teague TROPONIN, HIGH SENSITIVITYon 09-11-2022 HSTROP 9.1 pg/mL Normal 4.0-51.3 [facility] Comment on above: Result Comment: CUT- OFF POINTS HAVE BEEN ESTABLISHED BASED ON THE FOURTH UNIVERSAL DEFINITIONS OF MYOCARDIAL INFARCTION. THE UPPER REFERENCE LIMIT (URL) OF TROPONIN, DEFINED THE 99TH PERCENTILE OF cTnI DISTRIBUTION IN A REFERENCE POPULATION, HAS BEEN CONFIRMED THE DECISION THRESHOLD FOR AK DIAGNOSIS. Performed By: #### P THINT #### [facility] [address] [place] [address] [address] [address] Ember Teague UA RANDOM W/MICROSCOPICon BACTERIA NONE SEEN Normal NONE SEEN [facility] Comment on above: Performed By: #### C VDTBH #### [facility] [address] [place], [place] [id number] Dr. Ember Teague Bilirubin Ql (U) Negative Normal NEGATIVE [facility] Comment on above: Performed By: #### C VDTBH #### [facility] [address] [place] [address] Dr. Ember Teague CAST NONE SEEN Normal NONE SEEN [facility] Comment on above: Performed By: #### C VDTBH #### [facility] [address] [place] [address] Dr. Ember Teague Clarity (U) CLEAR Normal CLEAR [facility] Comment on above: Performed By: #### C VDTBH #### [facility] [address] [place] [address] Dr. Ember Teague Color (U) LT. YELLOW Normal YELLOW [facility] Comment on above: Performed By: #### C VDTBH #### [facility] [address] [place] [address] Dr. Ember Teague Crystals LM Nom (Urine sed) NONE SEEN Normal NONE SEEN [facility] Comment on above: Performed By: #### C VDTBH #### [facility] [address] [place] [address] Dr. Ember Teague Epithelial cells LM Ql (Urine sed) FEW Abnormal NONE SEEN /RARE [facility] Comment on above: Performed By: #### C VDTBH #### [facility] [address] [place] [address] Dr. Ember Teague Glucose Ql (U) Negative Normal NEGATIVE [facility] Comment on above: Performed By: #### C VDTBH #### [facility] [address] [place] [address] Dr. Ember Teague Hemoglobin Ql (U) Negative Normal NEGATIVE [facility] Comment on above: Performed By: #### C VDTBH #### [facility] [address] [place] [address] Dr. Ember Teague Ketones Ql (U) Negative Normal NEGATIVE [facility] Comment on above: Performed By: #### C VDTBH #### [facility] [address] [place] [address] Dr. Ember Teague LEUKOCYTES Negative Normal NEGATIVE [facility] Comment on above: Performed By: #### C VDTBH #### [facility] [address] [place] [address] Dr. Ember Teague MUCOUS NONE SEEN Normal NONE SEEN [facility] Comment on above: Performed By: #### C VDTBH #### [facility] [address] [address] [address] Ember Teague Nitrite Ql (U) Negative Normal NEGATIVE [facility] Comment on above: Performed By: #### C VDTBH #### [facility] [address] [place] [address] Dr. Ember Teague pH (U) 5.5 [pH] Normal 5-9 [facility] Comment on above: Performed By: #### C VDTBH #### [facility] [address] [place] [address] Dr. Ember Teague RBC NONE SEEN Abnormal 0-2 [facility] Comment on above: Performed By: #### C VDTBH #### [facility] [address] [place] [address] Dr. Ember Teague SPEC GRAVITY 1.010 Normal 1.005-<=1.025 [facility] Comment on above: Performed By: #### C VDTBH #### [facility] [address] [place] [address] Dr. Ember Teague UA PROTEIN Negative Normal NEGATIVE/ TRACE [facility] Comment on above: Performed By: #### C VDTBH #### [facility] [address] [place] [address] Dr. Ember Teague Urobilinogen Qn (U) 0.2 {Esau'U}/dL Normal 0.2 - 1. 0 [facility] Comment on above: Performed By: #### C VDTBH #### [facility] [address] [place] [address] Dr. Ember Teague WBC NONE SEEN Normal NONE SEEN [facility] Comment on above: Performed By: #### C VDTBH #### [facility] [address] [place] [address] Dr. Ember Teague CBC AUTO DIFFon 08-13-2022 BASO # 0.0 103/ul Normal 0.0-0.1 [facility] Comment on above: Performed By: #### C BC #### [facility] [address] [address] [address] Ember Teague Basophils/100 WBC (Bld) 0.3 % Normal 0.2-2.0 [facility] Comment on above: Performed By: #### C BC #### [facility] [address] [place] [address] Dr. Ember Teague EO # 0.2 103/ul Normal 0.0-0.7 [facility] Comment on above: Performed By: #### C BC #### [facility] [address] [place] [address] Dr. Ember Teague Eosinophils/100 WBC (Bld) 3.7 % Normal 0.9-7.0 [facility] Comment on above: Performed By: #### C BC #### [facility] [address] [place] [address] Dr. Ember Teague Erythrocyte distribution width (RBC) [Ratio] 15.0 % Normal 11.0-15.0 [facility] Comment on above: Performed By: #### C BC #### [facility] [address] [place] [address] Dr. Ember Teague Hematocrit (Bld) [Volume fraction] 27.9 % Critically low 36.0-48.0 [facility] Comment on above: Performed By: #### C BC #### [facility] [address] [place] [address] Dr. Ember Teague Hemoglobin (Bld) [Mass/Vol] 9.7 g/dL Critically low 12.0-16.0 [facility] Comment on above: Performed By: #### C BC #### [facility] [address] [place] [address] Dr. Ember Teague IG # 0.01 10e3/ul Normal 0.00-0.03 [facility] Comment on above: Performed By: #### C BC #### [facility] [address] [place] [address] Dr. Ember Teague IG % 0.2 % Normal 0.0-0.5 [facility] Comment on above: Performed By: #### C BC #### [facility] [address] [place] [address] Dr. Ember Teague LYMPH # 1.9 103/ul Normal 1.2-3.8 [facility] Comment on above: Performed By: #### C BC #### [facility] [address] [place] [address] Dr. Ember Teague Lymphocytes/100 WBC (Bld) 32.2 % Normal 20.5-60.0 [facility] Comment on above: Performed By: #### C BC #### [facility] [address] [place] [address] Dr. Ember Teague MANUAL DIFF REQ NO Normal [facility] Comment on above: Performed By: #### C BC #### [facility] [address] [place] [address] Dr. Ember Teague MCH (RBC) [Entitic mass] 31.4 pg Normal 26.7-34.0 [facility] Comment on above: Performed By: #### C BC #### [facility] [address] [place] [address] Dr. Ember Teague MCHC (RBC) [Mass/Vol] 34.8 g/dL Normal 29.9-35.2 [facility] Comment on above: Performed By: #### C BC #### [facility] [address] [place] [address] Dr. Ember Teague MCV (RBC) [Entitic vol] 90.3 fL Normal 81.0-99.0 [facility] Comment on above: Performed By: #### C BC #### [facility] [address] [place] [address] Dr. Ember Teague MONO # 0.6 103/ul Normal 0.3-0.8 [facility] Comment on above: Performed By: #### C BC #### [facility] [address] [place] [address] Dr. Ember Teague Monocytes/100 WBC (Bld) 9.8 % Normal 1.7-12.0 [facility] Comment on above: Performed By: #### C BC #### [facility] [address] [place] [address] Dr. Ember Teague NEUT # 3.2 103/ul Normal 1.4-6.5 [facility] Comment on above: Performed By: #### C BC #### [facility] [address] [place] [address] Dr. Ember Teague Neutrophils/100 WBC (Bld) 53.8 % Normal 43.0-75.0 [facility] Comment on above: Performed By: #### C BC #### [facility] [address] [place] [address] Dr. Ember Teague Platelet mean volume (Bld) [Entitic vol] 10.0 fL Normal 9.5-13.5 [facility] Comment on above: Performed By: #### C BC #### [facility] [address] [place] [address] Dr. Ember Teague PLT 194 103/ul Normal 150-450 [facility] Comment on above: Performed By: #### C BC #### [facility] [address] [place] [address] Dr. Ember Teague RBC 3.09 106/ul Critically low 4.20-5.40 [facility] Comment on above: Performed By: #### C BC #### [facility] [address] [place] [address] Dr. Ember Teague WBC 6.0 103/ul Normal 4.0-11.0 [facility] Comment on above: Performed By: #### C BC #### [facility] [address] [place] [address] Dr. Ember Teague PTH INTACTon 06-26-2022 PTH, Intact 39 pg/mL Normal 15-65 [facility] Comment on above: Performed By: #### P THINT #### [facility] [address] [place] [address] Dr. Ember Teague CBC AUTO DIFFon 06-25-2022 BASO # 0.1 103/ul Normal 0.0-0.1 [facility] Comment on above: Performed By: #### C VDTBH #### [facility] [address] [place] [address] Dr. Ember Teague Basophils/100 WBC (Bld) 0.6 % Normal 0.2-2.0 [facility] Comment on above: Performed By: #### C VDTBH #### [facility] [address] [place] [address] Dr. Ember Teague EO # 0.2 103/ul Normal 0.0-0.7 [facility] Comment on above: Performed By: #### C VDTBH #### [facility] [address] [place] [address] Dr. Ember Teague Eosinophils/100 WBC (Bld) 3.0 % Normal 0.9-7.0 [facility] Comment on above: Performed By: #### C VDTBH #### [facility] [address] [place] [address] Dr. Ember Teague Erythrocyte distribution width (RBC) [Ratio] 14.2 % Normal 11.0-15.0 [facility] Comment on above: Performed By: #### C VDTBH #### [facility] [address] [place] [address] Dr. Ember Teague Hematocrit (Bld) [Volume fraction] 30.9 % Critically low 36.0-48.0 [facility] Comment on above: Performed By: #### C VDTBH #### [facility] [address] [place] [address] Dr. Ember Teague Hemoglobin (Bld) [Mass/Vol] 10.6 g/dL Critically low 12.0-16.0 [facility] Comment on above: Performed By: #### C VDTBH #### [facility] [address] [place] [address] Dr. Ember Teague IG # 0.04 10e3/ul Critically high 0.00-0.03 [facility] Comment on above: Performed By: #### C VDTBH #### [facility] [address] [place] [address] Dr. Ember Teague IG % 0.5 % Normal 0.0-0.5 [facility] Comment on above: Performed By: #### C VDTBH #### [facility] [address] [place] [address] Dr. Ember Teague LYMPH # 2.2 103/ul Normal 1.2-3.8 [facility] Comment on above: Performed By: #### C VDTBH #### [facility] [address] [place] [address] Dr. Ember Teague Lymphocytes/100 WBC (Bld) 27.0 % Normal 20.5-60.0 [facility] Comment on above: Performed By: #### C VDTBH #### [facility] [address] [place] [address] Dr. Ember Teague MANUAL DIFF REQ NO Normal [facility] Comment on above: Performed By: #### C VDTBH #### [facility] [address] [place] [address] Dr. Ember Teague MCH (RBC) [Entitic mass] 31.2 pg Normal 26.7-34.0 [facility] Comment on above: Performed By: #### C VDTBH #### [facility] [address] [place] [address] Dr. Ember Teague MCHC (RBC) [Mass/Vol] 34.3 g/dL Normal 29.9-35.2 [facility] Comment on above: Performed By: #### C VDTBH #### [facility] [address] [place] [address] Dr. Ember Teague MCV (RBC) [Entitic vol] 90.9 fL Normal 81.0-99.0 [facility] Comment on above: Performed By: #### C VDTBH #### [facility] [address] [place] [address] Dr. Ember Teague MONO # 0.7 103/ul Normal 0.3-0.8 [facility] Comment on above: Performed By: #### C VDTBH #### [facility] [address] [place] [address] Dr. Ember Teague Monocytes/100 WBC (Bld) 9.2 % Normal 1.7-12.0 [facility] Comment on above: Performed By: #### C VDTBH #### [facility] [address] [address] [address] Ember Teague NEUT # 4.8 103/ul Normal 1.4-6.5 [facility] Comment on above: Performed By: #### C VDTBH #### [facility] [address] [address] [address] Ember Teague Neutrophils/100 WBC (Bld) 59.7 % Normal 43.0-75.0 [facility] Comment on above: Performed By: #### C VDTBH #### [facility] [address] [address] Dr. Ember Teague Platelet mean volume (Bld) [Entitic vol] 9.3 fL Critically low 9.5-13.5 [facility] Comment on above: Performed By: #### C VDTBH #### [facility] [address] [place] [address] Dr. Ember Teague PLT 227 103/ul Normal 150-450 [facility] Comment on above: Performed By: #### C VDTBH #### [facility] [address] [address] [address] Ember Teague RBC 3.40 106/ul Critically low 4.20-5.40 [facility] Comment on above: Performed By: #### C VDTBH #### [facility] [address] [place] [address] Dr. Ember Teague WBC 8.0 103/ul Normal 4.0-11.0 [facility] Comment on above: Performed By: #### C VDTBH #### [facility] [address] [place] [address] Dr. Ember Teague MRI LSPINE WO CONon [...] YANET HUERTA Date: 2022-06-25 08:45 Normal [facility] RENAL FUNCTION PANELon 06-25 Albumin [Mass/Vol] 3.9 g/dL Normal 3.4-5.0 [facility] Comment on above: Performed By: #### P THINT #### [facility] [address] [address] [address] Ember Teague Calcium [Mass/Vol] 9.5 mg/dL Normal 8.5-10.1 [facility] Comment on above: Performed By: #### P THINT #### [facility] [address] [address] [address] Ember Teague Chloride [Moles/Vol] 102 mmol/L Normal 98-107 [facility] Comment on above: Performed By: #### P THINT #### [facility] [address] [address] [address] Ember eTague CO2 [Moles/Vol] 23.8 mmol/L Normal 21.0-32.0 [facility] Comment on above: Performed By: #### P THINT #### [facility] [address] [address] [address] Ember Teague Creatinine [Mass/Vol] 1.75 mg/dL Critically high 0.55-1.02 [facility] Comment on above: Performed By: #### P THINT #### [facility] [address] [address] [address] Ember Teague EGFR-AF BAHRAINI 34 mL/min/1.73m2 Critically low >=60 [facility] Comment on above: Performed By: #### P THINT #### [facility] [address] [address] [address] Ember Teague EGFR-NON AF BAHRAINI 28 mL/min/1.73m2 Critically low >=60 [facility] Comment on above: Performed By: #### P THINT #### [facility] [address] [address] [address] Ember Teague Glucose [Mass/Vol] 199 mg/dL Critically high 74-106 [facility] Comment on above: Performed By: #### P THINT #### [facility] [address] [address] [address] Ember Teague Phosphate [Mass/Vol] 4.3 mg/dL Normal 2.6-4.7 [facility] Comment on above: Performed By: #### P THINT #### [facility] [address] [address] [address] Ember Teague Potassium [Moles/Vol] 4.9 mmol/L Normal 3.5-5.1 [facility] Comment on above: Performed By: #### P THINT #### [facility] [address] [address] [address] Ember Teague Sodium [Moles/Vol] 135 mmol/L Critically low 136-145 [facility] Comment on above: Performed By: #### P THINT #### [facility] [address] [address] [address] mEber Teague Urea nitrogen [Mass/Vol] 34.0 mg/dL Critically high 7.0-18.0 [facility] Comment on above: Performed By: #### P THINT #### [facility] [address] [place] [address] Dr. Ember Teague VITAMIN D 25 OHon 06-25-2022 VIT D 25-OH 40.6 ng/mL Normal [facility] Comment on above: Performed By: #### P THINT #### [facility] [address] [place] [address] Dr. Ember Teague VIT D RANGES SEE BELOW Normal [facility] Comment on above: Result Comment: <20 ng/mL Vit D deficient 20 - <30 ng/mL Vit D insufficient 30 - 100 ng/mL Vit D sufficient >100 ng/mL Potential Toxicity Performed By: #### P THINT #### [facility] [address] [place] [address] Dr. Ember Teague Covid-19 PCR (CVDTBH)on 06-07 SARS-CoV-2 (COVID-19) RNA ALEXX+probe Ql (Unsp spec) Not detected Normal NOT DETECTED [facility] Comment on above: Result Comment: This test is not yet approved or cleared by the [place] FDA. When there are no FDA-approved or cleared tests available, and other criteria are met, FDA can make tests available under an emergency access mechanism called an Emergency Use Authorization (EUA). The EUA for this test is supported by the [employer] of Health and Human Service's (HHS's) declaration [...] SARS-CoV-2. Performed By: #### C VDTBH #### [facility] [address] [place] [address] LSPINE WO CONon [...] by: YANET HUERTA Date: 2022-06-01 18:02 Normal [facility] XR LSPINE MIN 4 VIEWSon [...] YANET HUERTA Date: 2022-05-21 15:25 Normal [facility] PTH INTACTon 05-03-2022 PTH, Intact 60 pg/mL Normal 15-65 [facility] Comment on above: Performed By: #### C VDTBH #### [facility] [address] [address] [address] Ember Teague VIT D 25-OH LABCORPon 2021 Vitamin D, 25-Hydroxy 26.1 ng/mL Critically low 30.0-100.0 [facility] Comment on above: Result Comment: Sara min D deficiency has been defined by the [place] of Medicine and an Endocrine Society practice guideline as a level of serum 25-OH vitamin D less than 20 ng/mL (1,2). The Endocrine Society went on to further define vitamin D insufficiency as a level between 21 and 29 ng/mL (2). 1. IOM ([place] of Medicine). 2010. Dietary reference intakes for calcium and D. [place]: The National Academies Press. 2. Sherice MF, Wendy WILSON, Huan ZHONG, et al. Evaluation, treatment, and prevention of vitamin D deficiency: an Endocrine Society clinical practice guideline. JCEM. 2010; 96(7):1911-30. Performed By: #### R ENAL #### [facility] [address] [place] [address] Dr. Ember Teague FERRITINon 05-02-2022 Ferritin [Mass/Vol] 590.0 ng/mL Critically high 8.0-252.0 [facility] Comment on above: Performed By: #### R ENAL #### [facility] [address] [address] [address] Ember Teague HEMOGRAM AND PLATELon 2021 Hematocrit (Bld) [Volume fraction] 28.4 % Critically low 36.0-48.0 [facility] Comment on above: Performed By: #### C VDTBH #### [facility] [address] [address] [address] Ember Teague Hemoglobin (Bld) [Mass/Vol] 9.6 g/dL Critically low 12.0-16.0 [facility] Comment on above: Performed By: #### C VDTBH #### [facility] [address] [place] [address] Dr. Ember Teague MCH (RBC) [Entitic mass] 31.0 pg Normal 26.7-34.0 [facility] Comment on above: Performed By: #### C VDTBH #### [facility] [address] [place] [address] Dr. Ember Teague MCHC (RBC) [Mass/Vol] 33.8 g/dL Normal 29.9-35.2 [facility] Comment on above: Performed By: #### C VDTBH #### [facility] [address] [place] [address] Dr. Ember Teague MCV (RBC) [Entitic vol] 91.6 fL Normal 81.0-99.0 [facility] Comment on above: Performed By: #### C VDTBH #### [facility] [address] [place] [address] Dr. Ember Teague PLT 189 103/ul Normal 150-450 [facility] Comment on above: Performed By: #### C VDTBH #### [facility] [address] [place] [address] Dr. Ember Teague RBC 3.10 106/ul Critically low 4.20-5.40 [facility] Comment on above: Performed By: #### C VDTBH #### [facility] [address] [place] [address] Dr. Ember Teague WBC 6.2 103/ul Normal 4.0-11.0 [facility] Comment on above: Performed By: #### C VDTBH #### [facility] [address] [place] [address] Dr. Ember Teague IRON AND TIBCon 05-02-2022 % SATURATION 34.3 % Normal [facility] Comment on above: Performed By: #### R ENAL #### [facility] [address] [place] [address] Dr. Ember Teague Iron [Mass/Vol] 69.0 ug/dL Normal 50.0-170.0 [facility] Comment on above: Performed By: #### R ENAL #### [facility] [address] [place] [address] Dr. Ember Teague TIBC DIRECT 201.0 ug/dL Critically low 250.0-450.0 [facility] Comment on above: Performed By: #### R ENAL #### [facility] [address] [place] [address] Dr. Ember Teague MAGNESIUMon 05-02-2022 Magnesium [Mass/Vol] 1.7 mg/dL Critically low 1.8-2.4 [facility] Comment on above: Performed By: #### C VDTBH #### [facility] [address] [place] [address] Dr. Ember Teague RENAL FUNCTION PANELon 05-02 Albumin [Mass/Vol] 3.6 g/dL Normal 3.4-5.0 [facility] Comment on above: Performed By: #### C VDTBH #### [facility] [address] [place] [address] Dr. Ember Teague Calcium [Mass/Vol] 9.2 mg/dL Normal 8.5-10.1 [facility] Comment on above: Performed By: #### C VDTBH #### [facility] [address] [place] [address] Dr. Ember Teague Chloride [Moles/Vol] 107 mmol/L Normal 98-107 [facility] Comment on above: Performed By: #### C VDTBH #### [facility] [address] [place] [address] Dr. Ember Teague CO2 [Moles/Vol] 21.2 mmol/L Normal 21.0-32.0 [facility] Comment on above: Performed By: #### C VDTBH #### [facility] [address] [place] [address] Dr. Ember Teague Creatinine [Mass/Vol] 1.75 mg/dL Critically high 0.55-1.02 [facility] Comment on above: Performed By: #### C VDTBH #### [facility] [address] [address] [address] Ember Teague EGFR-AF BAHRAINI 34 mL/min/1.73m2 Critically low >=60 [facility] Comment on above: Performed By: #### C VDTBH #### [facility] [address] [address] [address] Ember Teague EGFR-NON AF BAHRAINI 28 mL/min/1.73m2 Critically low >=60 [facility] Comment on above: Performed By: #### C VDTBH #### [facility] [address] [address] [address] Ember Teague Glucose [Mass/Vol] 193 mg/dL Critically high 74-106 [facility] Comment on above: Performed By: #### C VDTBH #### [facility] [address] [address] [address] Ember Teague Phosphate [Mass/Vol] 4.2 mg/dL Normal 2.6-4.7 [facility] Comment on above: Performed By: #### C VDTBH #### [facility] [address] [address] [address] Ember Teague Potassium [Moles/Vol] 5.1 mmol/L Normal 3.5-5.1 [facility] Comment on above: Performed By: #### C VDTBH #### [facility] [address] [address] [address] Ember Teague Sodium [Moles/Vol] 139 mmol/L Normal 136-145 [facility] Comment on above: Performed By: #### C VDTBH #### [facility] [address] [address] [address] Ember Teague Urea nitrogen [Mass/Vol] 34.0 mg/dL Critically high 7.0-18.0 [facility] Comment on above: Performed By: #### C VDTBH #### [facility] [address] [address] [address] Ember Teague UA RANDOM W/MICROSCOPICon BACTERIA SMALL Abnormal NONE SEEN [facility] Comment on above: Performed By: #### C VDTBH #### [facility] [address] [place] [address] Dr. Ember Teague Bilirubin Ql (U) Negative Normal NEGATIVE [facility] Comment on above: Performed By: #### C VDTBH #### [facility] [address] [address] [address] Ember Teague CAST NONE SEEN Normal NONE SEEN [facility] Comment on above: Performed By: #### C VDTBH #### [facility] [address] [place] [address] Dr. Ember Teague Clarity (U) CLEAR Normal CLEAR [facility] Comment on above: Performed By: #### C VDTBH #### [facility] [address] [place] [address] Dr. Ember Teague Color (U) LT. YELLOW Normal YELLOW [facility] Comment on above: Performed By: #### C VDTBH #### [facility] [address] [place] [address] Dr. Ember Teague Crystals LM Nom (Urine sed) NONE SEEN Normal NONE SEEN [facility] Comment on above: Performed By: #### C VDTBH #### [facility] [address] [place] [address] Dr. Ember Teague Epithelial cells LM Ql (Urine sed) MODERATE Abnormal NONE SEEN /RARE [facility] Comment on above: Performed By: #### C VDTBH #### [facility] [address] [place] [address] Dr. Ember Teague Glucose Ql (U) Negative Normal NEGATIVE [facility] Comment on above: Performed By: #### C VDTBH #### [facility] [address] [place] [address] Dr. Ember Teague Hemoglobin Ql (U) Negative Normal NEGATIVE [facility] Comment on above: Performed By: #### C VDTBH #### [facility] [address] [place] [address] Dr. Ember Teague Ketones Ql (U) Negative Normal NEGATIVE [facility] Comment on above: Performed By: #### C VDTBH #### [facility] [address] [place] [address] Dr. Ember Teague LEUKOCYTES TRACE Abnormal NEGATIVE [facility] Comment on above: Performed By: #### C VDTBH #### [facility] [address] [place] [address] Dr. Ember Teague MUCOUS NONE SEEN Normal NONE SEEN [facility] Comment on above: Performed By: #### C VDTBH #### [facility] [address] [place] [address] Dr. Ember Teague Nitrite Ql (U) Negative Normal NEGATIVE [facility] Comment on above: Performed By: #### C VDTBH #### [facility] [address] [place] [address] Dr. Ember Teague pH (U) 5.0 [pH] Normal 5-9 [facility] Comment on above: Performed By: #### C VDTBH #### [facility] [address] [place] [address] Dr. Ember Teague RBC NONE SEEN Abnormal 0-2 [facility] Comment on above: Performed By: #### C VDTBH #### [facility] [address] [place] [address] Dr. Ember Teague SPEC GRAVITY 1.015 Normal 1.005-<=1.025 [facility] Comment on above: Performed By: #### C VDTBH #### [facility] [address] [place] [address] Dr. Ember Teague UA PROTEIN TRACE Normal NEGATIVE/ TRACE [facility] Comment on above: Performed By: #### C VDTBH #### [facility] [address] [place] [address] Dr. Ember Teague Urobilinogen Qn (U) 0.2 {Esau'U}/dL Normal 0.2 - 1. 0 [facility] Comment on above: Performed By: #### C VDTBH #### [facility] [address] [place] [address] Dr. Ember Teague WBC 0-2 Abnormal NONE SEEN [facility] Comment on above: Performed By: #### C VDTBH #### [facility] [address] [place] [address] Dr. Ember Teague URIC ACID SERUMon 05-02-2022 Urate [Mass/Vol] 4.4 mg/dL Normal 2.6-6.0 [facility] Comment on above: Performed By: #### C BC #### [facility] [address] [place] [address] Dr. Ember Teague URINE T PROTEIN CREAT RATIOo n 05-02-2022 Protein (U) [Mass/Vol] 33.7 mg/dL Critically high <=12.0 [facility] Comment on above: Performed By: #### C VDTBH #### [facility] [address] [place] [address] Dr. Ember Teague UR PROT CREAT RAT 0.69 Normal [facility] Comment on above: Performed By: #### C VDTBH #### [facility] [address] [place] [address] Dr. Ember Teague URINE CREAT 48.93 mg/dL Normal 20.00-300.00 [facility] Comment on above: Performed By: #### C VDTBH #### [facility] [address] [place] [address] Dr. Ember Teague Vital Signs Date Time Vital Sign Value Performing Clinician Facility 11-18-2023 10:00-0500 Body height 168.91 cm Orn Doreen Other [facility] Other 11-18-2023 10:00-0500 Body mass index (BMI) [Ratio] 29.85 kg/m2 Ron Doreen Other [facility] Other 11-18-2023 10:00-0500 Body temperature 97.3 [degF] Ron Doreen Other [facility] Other 11-18-2023 10:00-0500 Body weight 85.19 kg Ron Doreen Other [facility] Other 11-18-2023 10:00-0500 Diastolic blood pressure 79 mm[Hg] Ron Doreen Other [facility] Other 11-18-2023 10:00-0500 Respiratory rate 18 /min Ron Doreen Other [facility] Other 11-18-2023 10:00-0500 SaO2% (BldA) [Mass fraction] 98 % Ron Doreen Other [facility] Other 11-18-2023 10:00-0500 Systolic blood pressure 149 mm[Hg] Ron Doreen Other [facility] Other 11-04-2023 11:00-0500 Body height 168.91 cm Ron Doreen Other [facility] Other 11-04-2023 11:00-0500 Body mass index (BMI) [Ratio] 30.17 kg/m2 Ron Doreen Other [facility] Other 11-04-2023 11:00-0500 Body temperature 97.6 [degF] Ron Doreen Other [facility] Other 11-04-2023 11:00-0500 Body weight 86.09 kg Ron Doreen Other [facility] Other 11-04-2023 11:00-0500 Diastolic blood pressure 76 mm[Hg] Ron Doreen Other [facility] Other 11-04-2023 11:00-0500 Respiratory rate 18 /min Ron Doreen Other [facility] Other 11-04-2023 11:00-0500 SaO2% (BldA) [Mass fraction] 98 % Ron Doreen Other [facility] Other 11-04-2023 11:00-0500 Systolic blood pressure 153 mm[Hg] Ron Doreen Other [facility] Other 10-15-2023 13:00-0500 Body height 168.91 cm Ron Doreen Other [facility] Other 10-15-2023 13:00-0500 Body mass index (BMI) [Ratio] 29.82 kg/m2 Ron Doreen Other [facility] Other 10-15-2023 13:00-0500 Body temperature 97.5 [degF] Ron Doreen Other [facility] Other 10-15-2023 13:00-0500 Body weight 85.1 kg Ron Doreen Other [facility] Other 10-15-2023 13:00-0500 Diastolic blood pressure 68 mm[Hg] Ron Doreen Other [facility] Other 10-15-2023 13:00-0500 Respiratory rate 18 /min Ron Doreen Other [facility] Other 10-15-2023 13:00-0500 SaO2% (BldA) [Mass fraction] 98 % Ron Doreen Other [facility] Other 10-15-2023 13:00-0500 Systolic blood pressure 113 mm[Hg] Ron Doreen Other [facility] Other 08-27-2023 09:40-0500 Body height 168.91 cm Aziz Bakhous Other [facility] Other 08-27-2023 09:40-0500 Body mass index (BMI) [Ratio] 30.2 kg/m2 Aziz Bakhous Other [facility] Other 08-27-2023 09:40-0500 Body temperature 96.7 [degF] Aziz Bakhous Other [facility] Other 08-27-2023 09:40-0500 Body weight 86.18 kg Aziz Bakhous Other [facility] Other 08-27-2023 09:40-0500 Diastolic blood pressure 72 mm[Hg] Aziz Bakhous Other [facility] Other 08-27-2023 09:40-0500 Respiratory rate 18 /min Azduc Bakhous Other [facility] Other 08-27-2023 09:40-0500 SaO2% (BldA) [Mass fraction] 98 % Aziz Bakhous Other [facility] Other 08-27-2023 09:40-0500 Systolic blood pressure 153 mm[Hg] Aziz Bakhous Other [facility] Other 08-15-2023 10:20-0500 Body height 168.91 cm Ron Doreen Other [facility] Other 08-15-2023 10:20-0500 Body mass index (BMI) [Ratio] 30.2 kg/m2 Ron Doreen Other [facility] Other 08-15-2023 10:20-0500 Body temperature 97.1 [degF] Ron Doreen Other [facility] Other 08-15-2023 10:20-0500 Body weight 86.18 kg Ron Doreen Other [facility] Other 08-15-2023 10:20-0500 Diastolic blood pressure 79 mm[Hg] Ron Doreen Other [facility] Other 08-15-2023 10:20-0500 Respiratory rate 18 /min Ron Doreen Other [facility] Other 08-15-2023 10:20-0500 SaO2% (BldA) [Mass fraction] 98 % Ron Doreen Other [facility] Other 08-15-2023 10:20-0500 Systolic blood pressure 164 mm[Hg] Ron Doreen Other [facility] Other 08-13-2023 15:40-0500 Body height 168.91 cm Ron Doreen Other [facility] Other 08-13-2023 15:40-0500 Body mass index (BMI) [Ratio] 30.24 kg/m2 Ron Doreen Other [facility] Other 08-13-2023 15:40-0500 Body temperature 97.2 [degF] Ron Doreen Other [facility] Other 08-13-2023 15:40-0500 Body weight 86.27 kg Ron Doreen Other [facility] Other 08-13-2023 15:40-0500 Diastolic blood pressure 79 mm[Hg] Ron Doreen Other [facility] Other 08-13-2023 15:40-0500 Respiratory rate 18 /min Ron Doreen Other [facility] Other 08-13-2023 15:40-0500 SaO2% (BldA) [Mass fraction] 98 % Ron Doreen Other [facility] Other 08-13-2023 15:40-0500 Systolic blood pressure 186 mm[Hg] Ron Doreen Other [facility] Other 08-01-2023 13:00-0400 Body height 168.91 cm Ron Doreen Other [facility] Other 08-01-2023 13:00-0400 Body mass index (BMI) [Ratio] 30.55 kg/m2 Ron Doreen Other [facility] Other 08-01-2023 13:00-0400 Body temperature 97.8 [degF] Ron Doreen Other [facility] Other 08-01-2023 13:00-0400 Body weight 87.18 kg Ron Doreen Other [facility] Other 08-01-2023 13:00-0400 Diastolic blood pressure 72 mm[Hg] Ron Doreen Other [facility] Other 08-01-2023 13:00-0400 Respiratory rate 18 /min Ron Doreen Other [facility] Other 08-01-2023 13:00-0400 SaO2% (BldA) [Mass fraction] 98 % Ron Doreen Other [facility] Other 08-01-2023 13:00-0400 Systolic blood pressure 160 mm[Hg] Ron Doreen Other [facility] Other 06-24-2023 11:40-0400 Body height 168.91 cm Ron Doreen Other [facility] Other 06-24-2023 11:40-0400 Body mass index (BMI) [Ratio] 29.89 kg/m2 Ron Doreen Other [facility] Other 06-24-2023 11:40-0400 Body temperature 97.3 [degF] Ron Doreen Other [facility] Other 06-24-2023 11:40-0400 Body weight 85.28 kg Ron Doreen Other [facility] Other 06-24-2023 11:40-0400 Diastolic blood pressure 75 mm[Hg] Ron Doreen Other [facility] Other 06-24-2023 11:40-0400 Respiratory rate 18 /min Ron Doreen Other [facility] Other 06-24-2023 11:40-0400 SaO2% (BldA) [Mass fraction] 99 % Ron Doreen Other [facility] Other 06-24-2023 11:40-0400 Systolic blood pressure 129 mm[Hg] Ron Doreen Other [facility] Other 06-06-2023 15:20-0400 Body height 168.91 cm Ron Doreen Other [facility] Other 06-06-2023 15:20-0400 Body mass index (BMI) [Ratio] 29.92 kg/m2 Ron Doreen Other [facility] Other 06-06-2023 15:20-0400 Body temperature 96.5 [degF] Ron Doreen Other [facility] Other 06-06-2023 15:20-0400 Body weight 85.37 kg Ron Doreen Other [facility] Other 06-06-2023 15:20-0400 Diastolic blood pressure 49 mm[Hg] Ron Doreen Other [facility] Other 06-06-2023 15:20-0400 Respiratory rate 18 /min Ron Doreen Other [facility] Other 06-06-2023 15:20-0400 SaO2% (BldA) [Mass fraction] 99 % Ron Doreen Other [facility] Other 06-06-2023 15:20-0400 Systolic blood pressure 128 mm[Hg] Ron Doreen Other [facility] Other 04-30-2023 11:40-0400 Body height 168.91 cm Ron Doreen Other [facility] Other 04-30-2023 11:40-0400 Body mass index (BMI) [Ratio] 30.52 kg/m2 Ron Doreen Other [facility] Other 04-30-2023 11:40-0400 Body temperature 96.9 [degF] Ron Doreen Other [facility] Other 04-30-2023 11:40-0400 Body weight 87.09 kg Ron Doreen Other [facility] Other 04-30-2023 11:40-0400 Diastolic blood pressure 80 mm[Hg] Ron Doreen Other [facility] Other 04-30-2023 11:40-0400 Respiratory rate 18 /min Ron Doreen Other [facility] Other 04-30-2023 11:40-0400 SaO2% (BldA) [Mass fraction] 98 % Ron Doreen Other [facility] Other 04-30-2023 11:40-0400 Systolic blood pressure 150 mm[Hg] Ron Doreen Other [facility] Other 04-06-2023 09:00-0400 Body height 168.91 cm Ron Doreen Other [facility] Other 04-06-2023 09:00-0400 Body mass index (BMI) [Ratio] 30.36 kg/m2 Ron Doreen Other [facility] Other 04-06-2023 09:00-0400 Body weight 86.64 kg Ron Doreen Other [facility] Other 04-06-2023 09:00-0400 Diastolic blood pressure 54 mm[Hg] Ron Doreen Other [facility] Other 04-06-2023 09:00-0400 Respiratory rate 18 /min Ron Doreen Other [facility] Other 04-06-2023 09:00-0400 SaO2% (BldA) [Mass fraction] 98 % Ron Doreen Other [facility] Other 04-06-2023 09:00-0400 Systolic blood pressure 144 mm[Hg] Ron Doreen Other [facility] Other 04-02-2023 14:40-0400 Body height 168.91 cm Ron Doreen Other [facility] Other 04-02-2023 14:40-0400 Body mass index (BMI) [Ratio] 30.55 kg/m2 Ron Doreen Other [facility] Other 04-02-2023 14:40-0400 Body temperature 97 [degF] Ron Doreen Other [facility] Other 04-02-2023 14:40-0400 Body weight 87.18 kg Ron Doreen Other [facility] Other 04-02-2023 14:40-0400 Diastolic blood pressure 76 mm[Hg] Ron Doreen Other [facility] Other 04-02-2023 14:40-0400 Respiratory rate 18 /min Ron Doreen Other [facility] Other 04-02-2023 14:40-0400 SaO2% (BldA) [Mass fraction] 98 % Ron Doreen Other [facility] Other 04-02-2023 14:40-0400 Systolic blood pressure 183 mm[Hg] Ron Doreen Other [facility] Other 03-07-2023 09:20-0400 Body height 168.91 cm Ron Doreen Other [facility] Other 03-07-2023 09:20-0400 Body mass index (BMI) [Ratio] 30.52 kg/m2 Ron Doreen Other [facility] Other 03-07-2023 09:20-0400 Body temperature 97.1 [degF] Ron Doreen Other [facility] Other 03-07-2023 09:20-0400 Body weight 87.09 kg Ron Doreen Other [facility] Other 03-07-2023 09:20-0400 Diastolic blood pressure 72 mm[Hg] Ron Doreen Other [facility] Other 03-07-2023 09:20-0400 Respiratory rate 18 /min Ron Doreen Other [facility] Other 03-07-2023 09:20-0400 SaO2% (BldA) [Mass fraction] 97 % Ron Doreen Other [facility] Other 03-07-2023 09:20-0400 Systolic blood pressure 130 mm[Hg] Ron Doreen Other [facility] Other 12-20-2022 13:20-0400 Body height 168.91 cm Ron Doreen Other [facility] Other 12-20-2022 13:20-0400 Body mass index (BMI) [Ratio] 30.68 kg/m2 Ron Doreen Other [facility] Other 12-20-2022 13:20-0400 Body temperature 97.1 [degF] Ron Doreen Other [facility] Other 12-20-2022 13:20-0400 Body weight 87.54 kg Ron Doreen Other [facility] Other 12-20-2022 13:20-0400 Diastolic blood pressure 72 mm[Hg] Ron Doreen Other [facility] Other 12-20-2022 13:20-0400 Respiratory rate 18 /min Ron Doreen Other [facility] Other 12-20-2022 13:20-0400 SaO2% (BldA) [Mass fraction] 99 % Ron Doreen Other [facility] Other 12-20-2022 13:20-0400 Systolic blood pressure 139 mm[Hg] Ron Doreen Other [facility] Other 11-05-2022 14:00-0500 Body height 168.91 cm Ron Doreen Other [facility] Other 11-05-2022 14:00-0500 Body mass index (BMI) [Ratio] 30.59 kg/m2 Ron Doreen Other [facility] Other 11-05-2022 14:00-0500 Body temperature 96.8 [degF] Ron Doreen Other [facility] Other 11-05-2022 14:00-0500 Body weight 87.27 kg Ron Doreen Other [facility] Other 11-05-2022 14:00-0500 Diastolic blood pressure 72 mm[Hg] Ron Doreen Other [facility] Other 11-05-2022 14:00-0500 Respiratory rate 18 /min Ron Doreen Other [facility] Other 11-05-2022 14:00-0500 SaO2% (BldA) [Mass fraction] 98 % Ron Doreen Other [facility] Other 11-05-2022 14:00-0500 Systolic blood pressure 157 mm[Hg] Ron Doreen Other [facility] Other 09-27-2022 16:00-0500 Body height 168.91 cm Jana Monson Other [facility] Other 09-27-2022 16:00-0500 Body mass index (BMI) [Ratio] 30.55 kg/m2 Jana Monson Other [facility] Other 09-27-2022 16:00-0500 Body temperature 96.8 [degF] Jana Monson Other [facility] Other 09-27-2022 16:00-0500 Body weight 87.18 kg Jana Monson Other [facility] Other 09-27-2022 16:00-0500 Diastolic blood pressure 73 mm[Hg] Jana Monson Other [facility] Other 09-27-2022 16:00-0500 Respiratory rate 18 /min Jana Monson Other [facility] Other 09-27-2022 16:00-0500 SaO2% (BldA) [Mass fraction] 98 % Jana Monson Other [facility] Other 09-27-2022 16:00-0500 Systolic blood pressure 159 mm[Hg] Jana Monson Other [facility] Other 08-22-2022 12:00-0500 Body height 168.91 cm Ron Doreen Other [facility] Other 08-22-2022 12:00-0500 Body mass index (BMI) [Ratio] 30.65 kg/m2 Ron Doreen Other [facility] Other 08-22-2022 12:00-0500 Body temperature 96.9 [degF] Ron Doreen Other [facility] Other 08-22-2022 12:00-0500 Body weight 87.45 kg Ron Doreen Other [facility] Other 08-22-2022 12:00-0500 Diastolic blood pressure 75 mm[Hg] Ron Doreen Other [facility] Other 08-22-2022 12:00-0500 Respiratory rate 18 /min Ron Doreen Other [facility] Other 08-22-2022 12:00-0500 SaO2% (BldA) [Mass fraction] 96 % Ron Doreen Other [facility] Other 08-22-2022 12:00-0500 Systolic blood pressure 121 mm[Hg] Ron Doreen Other [facility] Other 05-08-2022 10:20-0400 Body height 168.91 cm Ron Doreen Other [facility] Other 05-08-2022 10:20-0400 Body mass index (BMI) [Ratio] 31.54 kg/m2 Ron Doreen Other [facility] Other 05-08-2022 10:20-0400 Body temperature 97.6 [degF] Ron Doreen Other [facility] Other 05-08-2022 10:20-0400 Body weight 89.99 kg Ron Droeen Other [facility] Other 08-02-2022 10:20-0400 Diastolic blood pressure 68 mm[Hg] Ron Doreen Other [facility] Other 05-08-2022 10:20-0400 Respiratory rate 18 /min Ron Doreen Other [facility] Other 05-08-2022 10:20-0400 SaO2% (BldA) [Mass fraction] 98 % Ron Doreen Other [facility] Other 05-08-2022 10:20-0400 Systolic blood pressure 131 mm[Hg] Ron Doreen Other [facility] Other 01-18-2022 10:20-0400 Body height 168.91 cm Ron Doreen Other [facility] Other 01-18-2022 10:20-0400 Body mass index (BMI) [Ratio] 31 kg/m2 Ron Doreen Other [facility] Other 01-18-2022 10:20-0400 Body temperature 96.4 [degF] Ron Doreen Other [facility] Other 01-18-2022 10:20-0400 Body weight 88.45 kg Ron Doreen Other [facility] Other 01-18-2022 10:20-0400 Diastolic blood pressure 74 mm[Hg] Ron Doreen Other [facility] Other 01-18-2022 10:20-0400 Respiratory rate 18 /min Ron Doreen Other [facility] Other 01-18-2022 10:20-0400 SaO2% (BldA) [Mass fraction] 97 % Ron Doreen Other [facility] Other 01-18-2022 10:20-0400 Systolic blood pressure 170 mm[Hg] Ron Doreen Other [facility] Other Encounters Encounter Date Encounter Type Care Provider Facility Start: 05-25-2024 End: 05-25-2024 ambulatory GREG A PETITTI Not Available Start: 05-11-2024 End: 05-11-2024 ambulatory [facility] Start: 04-21-2024 End: 04-21-2024 ambulatory GREG A PETITTI Not Available Start: 04-16-2024 End: 04-16-2024 ambulatory GA CRESPO Not Available Start: 03-16-2024 End: 03-16-2024 ambulatory GREG A PETITTI Not Available Start: 02-10-2024 End: 02-10-2024 ambulatory [facility] Start: 01-17-2024 End: 01-17-2024 ambulatory [facility] Start: 01-16-2024 End: 01-16-2024 ambulatory GA CRESPO Not Available Start: 12-21-2023 Refill Luis dominique PA-C Work Phone: [facility] Comment on above: Med Refill Start: 11-28-2023 End: 11-28-2023 ambulatory GREG A PETITTI Not Available Start: 11-18-2023 End: 11-18-2023 ambulatory Ron Doreen Other [facility] Other Start: 11-18-2023 Office outpatient visit 15 minutes Ron Doreen [facility] Start: 11-05-2023 End: 11-05-2023 ambulatory GA CRESPO Not Available Start: 11-04-2023 (INJECTION) INJECTION Ron Doreen [facility] Start: 11-04-2023 End: 11-04-2023 ambulatory Ron Doreen Other [facility] Start: 10-22-2023 End: 10-22-2023 ambulatory GA CRESPO Not Available Start: 10-15-2023 End: 10-15-2023 ambulatory Ron Doreen Other [facility] Start: 10-15-2023 Office outpatient visit 15 minutes Ron Doreen [facility] Start: 10-08-2023 End: 10-08-2023 ambulatory Aziz Bakhous Other [facility] Other Start: 10-08-2023 Telephone encounter Aziz Bakhous [facility] Start: 09-15-2023 End: 09-15-2023 ambulatory Ron Doreen Other [facility] Start: 09-15-2023 Telephone encounter Ron Doreen [facility] Start: 09-09-2023 End: 09-09-2023 ambulatory Ron Doreen Other [facility] Start: 09-09-2023 Telephone encounter Ron Doreen [facility] Start: 08-27-2023 (INJECTION) INJECTION Aziz Bakhous [facility] Start: 08-27-2023 End: 08-27-2023 ambulatory Aziz Bakhous Other [facility] Start: 08-15-2023 (INJECTION) INJECTION Ron Doreen [facility] Start: 08-15-2023 End: 08-15-2023 ambulatory Ron Doreen Other [facility] Start: 08-13-2023 (INJECTION) INJECTION Ron D[facility] Start: 08-13-2023 End: 08-13-2023 ambulatory Ron Doreen Other [facility] Start: 08-01-2023 End: 08-01-2023 ambulatory Ron Doreen Other [facility] Start: 08-01-2023 Office outpatient visit 15 minutes Ron Doreen [facility] Start: 06-24-2023 End: 06-24-2023 ambulatory Ron Doreen Other [facility] Start: 06-24-2023 Office outpatient visit 10 minutes Ron Doreen [facility] Start: 06-06-2023 End: 06-06-2023 ambulatory Ron Doreen Other [facility] Start: 06-06-2023 Office outpatient visit 15 minutes Ron Doreen [facility] Start: 04-30-2023 End: 04-30-2023 ambulatory Ron Doreen Other [facility] Start: 04-30-2023 Office outpatient visit 15 minutes Ron Doreen [facility] Start: 04-06-2023 (INJECTION) INJECTION Ron Doreen [facility] Start: 04-06-2023 End: 04-06-2023 ambulatory Ron Doreen Other [facility] Start: 04-06-2023 Telephone encounter Ron Odreen [facility] Start: 04-02-2023 End: 04-02-2023 ambulatory Ron Doreen Other [facility] Start: 04-02-2023 Office outpatient visit 15 minutes Ron Doreen [facility] Start: 04-02-2023 Telephone encounter Ron Doreen [facility] Start: 03-07-2023 End: 03-07-2023 ambulatory Ron Doreen Other [facility] Start: 03-07-2023 Office outpatient visit 15 minutes Ron Doreen [facility] Start: 01-22-2023 End: 01-23-2023 ambulatory RON DOREEN Facility:[facility] Start: 12-20-2022 End: 12-20-2022 ambulatory Ron Doreen Other [facility] Start: 12-20-2022 Office outpatient visit 15 minutes Ron Doreen [facility] Start: 12-17-2022 End: 12-18-[address] DHRUV RUBI . Facility:[facility] Start: 12-10-2022 End: 12-11-2022 ambulatory RON DOREEN Facility:[facility] Start: 11-20-2022 End: 11-21-[address] BENI APARICIO Facility:[facility] Start: 11-05-2022 End: 11-05-2022 ambulatory Ron Doreen Other [facility] Other Start: 11-05-2022 Office outpatient visit 15 minutes Ron Doreen [facility] Start: 10-29-2022 End: 10-30-[address] JANA MONSON Facility:[facility] Start: 10-24-2022 End: 10-24-[address] LILLIAN ACOSTA . Facility:[facility] Start: 10-24-2022 End: 10-25-[address] DHRUV RUBI . Facility:[facility] Start: 09-27-2022 End: 09-27-2022 ambulatory Jana Monson Other [facility] Other Start: 09-27-2022 Office outpatient visit 15 minutes Jana Monson [facility] Start: 09-18-2022 End: 09-19-2022 ambulatory RON DOREEN Facility:[facility] Start: 09-11-2022 End: 09-11-[address] DHRUV RUBI . Facility:[facility] Start: 08-22-2022 End: 08-22-2022 ambulatory Ron Doreen Other [facility] Start: 08-22-2022 Office outpatient visit 15 minutes Ron Doreen [facility] Start: 08-13-2022 End: 08-14-2022 ambulatory RON DOREEN Facility:[facility] Start: 06-25-2022 End: 06-26-[address] DHRUV RUBI . Facility:[facility] Start: 06-18-2022 End: 06-18-[address] DHRUV RUBI . Facility:[facility] Start: 06-01-2022 End: 06-02-[address] YANET HUERTA Facility:[facility] Start: 05-28-2022 End: 05-28-2022 ambulatory Ron Doreen Other [facility] Other Start: 05-28-2022 Telephone encounter Ron Doreen [facility] Start: 05-21-2022 End: 05-22-[address] DHRUV RUBI . Facility:[facility] Start: 05-16-2022 End: 05-16-2022 ambulatory Ron Doreen Other [facility] Start: 05-16-2022 Telephone encounter Ron Doreen [facility] Start: 05-10-2022 End: 05-10-2022 ambulatory Ron Doreen Other [facility] Start: 05-10-2022 Telephone encounter Ron Doreen [facility] Start: 05-08-2022 End: 05-08-2022 ambulatory Ron Doreen Other [facility] Start: 05-08-2022 Office outpatient visit 25 minutes Ron Doreen [facility] Start: 05-02-2022 End: 05-03-2022 ambulatory RON DOREEN Facility: Start: 04-24-2022 End: 04-24-2022 ambulatory Mary Anne Ackerman Other [facility] Start: 04-24-2022 Telephone encounter Mary Anne Ackerman [facility] Start: 01-18-2022 End: 01-18-2022 ambulatory Ron Doreen Other [facility] Start: 01-18-2022 Office outpatient visit 25 minutes Ron Doreen [facility] Start: 05-21-2017 End: 05-22-2017 Ambulatory DEFAULT PHYSICIAN Facility:[facility] Procedures Date Procedure Procedure Detail [...] 03-19-2024 Adult BMI Screening Adult BMI Screening [facility] Start: 03-19-2024 Tobacco Screening Tobacco Screening [facility] Start: 06-07-2023 COVID-19 Vaccine ( season) COVID-19 Vaccine ( season) [facility] Start: 06-07-2023 Influenza vaccination Influenza Vaccine [facility] Start: 12-28-2021 Depression Screening Depression Screening [facility] Start: 2009 Fall Risk Screening Fall Risk Screening [facility] Start: 1994 Administration of varicella zoster vaccine Zoster (Shingles) Vaccine (1 of 2) [facility] Start: 12-15-1963 DTaP,Tdap and Td Vaccines (1 - Tdap) DTaP,Tdap and Td Vaccines (1 - Tdap) [facility] Start: 1962 Adult BMI Follow Up Plan Adult BMI Follow Up Plan [facility] Start: 1944 Medicare Annual Wellness Visit Medicare Annual Wellness Visit [facility] Immunizations Immunization Date Immunization Notes Care Provider Lai montemayor 07-18-2020 Seasonal trivalent influenza vaccine, adjuvanted, preservative free Luis Kb PA-C Work Phone: [facility] 07-18-2020 influenza virus vacc ine, unspecified formulation Luis Kb PA-C Work Phone: [facility] 07-22-2019 Seasonal trivalent influenza vaccine, adjuvanted, preservative free Luis Kb PA-C Work Phone: [facility] 07-14-2018 Seasonal trivalent influenza vaccine, adjuvanted, preservative free Luis Kb PA-C Work Phone: [facility] 07-15-2017 pneumococcal conjuga te vaccine, 13 valent Luis Kb PA-C Work Phone: [facility] 07-08-2017 influenza, high dose seasonal, preservative-free Luis Kb PA-C Work Phone: [facility] 07-25-2016 influenza, high dose seasonal, preservative-free Luis Kb PA-C Work Phone: [facility] 07-11-2015 influenza, high dose seasonal, preservative-free Luis Kb PA-C Work Phone: [facility] 07-16-2014 influenza, seasonal, injectable Luis Kb PA-C Work Phone: [facility] 07-10-2013 influenza, seasonal, injectable Luis Kb PA-C Work Phone: [facility] 08-08-2012 influenza virus vacc ine, unspecified formulation Luis Kb PA-C Work Phone: [facility] 08-08-2012 pneumococcal polysaccharide vaccine, 23 valent Luis Kb PA-C Work Phone: [facility] 07-11-2011 influenza virus vacc ine, unspecified formulation Luis Kb PA-C Work Phone: [facility] 08-15-2010 influenza virus vacc ine, unspecified formulation Luis Kb PA-C Work Phone: [facility] 07-26-2009 influenza virus vacc ine, unspecified formulation Luis Kb PA-C Work Phone: [facility] 08-04-2008 influenza virus vacc ine, unspecified formulation Luis Kb PA-C Work Phone: [facility] 08-13-2007 influenza virus vacc ine, unspecified formulation Luis Kb PA-C Work Phone: [facility] 08-11-2004 influenza virus vacc ine, unspecified formulation Luis Kb PA-C Work Phone: [facility] 08-09-2003 influenza virus vacc ine, unspecified formulation Luis Kb PA-C Work Phone: [facility] 08-09-2003 pneumococcal polysaccharide vaccine, 23 valent Luis Kb PA-C Work Phone: [facility] Payers Date Payer Category Payer Medicare [employer] MEDICARE A ET[employer] MEDICARE PLAN (HMO) [id number] 2021-Present [phone] [address] [place] [address] [id number] 1960 Medicare [id number] 1944 Unknown [id number] 2.16.840.1.892931.3.579.2.593 1944 Unknown [id number] 2.16.840.1.540464.3.579.2.593 1944 Unknown [id number] 2.16.840.1.450559.3.579.2.593 1944 Unknown [id number] 2.16.840.1.976375.3.579.2.593 1944 Unknown [id number] 2.16.840.1.312236.3.579.2.593 1944 Unknown [id number] 2.16.840.1.140983.3.579.2.593 1944 Unknown [id number] 2.16.840.1.931100.3.579.2.593 1944 Unknown [id number] 2.16.840.1.560019.3.579.2.593 1944 Unknown [id number] 2.16.840.1.860697.3.579.2.593 1944 Unknown [id number] 2.16.840.1.097549.3.579.2.593 1944 Unknown [id number] 2.16.840.1.714668.3.579.2.593 1944 Unknown [id number] 2.16.840.1.088193.3.579.2.593 1944 Unknown [id number] 2.16.840.1.354130.3.579.2.593 1944 Unknown [id number] 2.16.840.1.983033.3.579.2.593 1944 Unknown [id number] 2.16.840.1.592200.3.579.2.593 1944 Unknown [id number] 2.16.840.1.694955.3.579.2.593 1944 Unknown [id number] 2.16.840.1.164362.3.579.2.1286 1944 Unknown [id number] 2.16.840.1.744738.3.579.2.1259 1944 Unknown [id number] 2.16.840.1.331346.3.579.2.1259 1944 Unknown [id number] 2.16.840.1.625258.3.579.2.1259 1944 Unknown [id number] 2.16.840.1.142509.3.579.2.1259 1944 Unknown [id number] 2.16.840.1.062187.3.579.2.9 1944 Unknown [id number] 2.16.840.1.739556.3.579.2.1259 1944 Unknown [id number] 2.16.840.1.841866.3.579.2.9 1944 Unknown [id number] 2.16.840.1.227236.3.579.2.1258 Unknown Social History Date Type Detail Facility Unknown if ever smoked [facility] Other Start: 12-28-2020 End: 03-19-2023 Sex Assigned At [facility] Other Start: 09-20-2022 Tobacco smoking status [facility] Ex-smoker [facility] End: 10-07-1969 History of tobacco use Current smoker [facility] End: 10-07-1969 History of tobacco use Cigarette Smoker [facility] Start: 09-20-2022 Tobacco use and exposure Smokeless tobacco non-user [facility] Start: 03-19-2023 Alcohol intake Ex-drinker (finding) [facility] Start: 12-28-2020 End: 03-19-2023 History of Social function [facility] Do you belong to any clubs or organizations such as restoration groups, unions, fraternal or athletic groups, or school groups? No [facility] Are you now , , , , never or living with a partner? [facility] How hard is it for y ou to pay for the very basics like food, housing, medical care, and heating Not hard at all [facility] Do you feel stress - tense, restless, nervous, or anxious, or unable to sleep at night because your mind is troubled all the time - these days [OSQ] Not at all [facility] Start: 1945 Sex Assigned At Not on file [facility] Goals Date Patient Goal Desired Activity /State Personal health goal Comment on above: Formatting of this n ote might be different from the original. Evaluation of progress towards goal: return home with homecare and support from [facility], children and grandchildren Clinical Notes 01-18-2022 to 05-11-2024 Note Date & Type Note Facility 05-11-2024 Note [facility] Cardiology Clinic Note Chief Complaint: Patient here for follow up [facility] discharge back in February 2024. She was [...] kidney disease, Coronary artery disease, Diabetes mellitus ([facility]), Hyperlipidemia, and Hypertension. Surgical History She has [...] Indications (more content not included)... [facility] 02-10-2024 Note [facility] Cardiology Clinic Note Chief Complaint: Patient here to re-establish care. She was recently admitted to [facility] for hypertension. Had CABG since her last [...] longstanding diabetic. 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 [facility] 11-18-2023 Evaluation note Encounter Date Diagnosis Assessment [...] potassium improved with dietary restriction and Lasix. [facility] Other 01-29-2024 Evaluation note* Encounter Date Diagnosis Assessment Notes Treatment Notes Treatment Clinical Notes Oct, Anemia of renal disease (ICD-10 - D63.1) Oct, CKD (chronic kidney disease) stage 4, GFR 15-29 ml/min (ICD-10 - N18.4) [facility] Other 01-09-2024 Evaluation note* Encounter Date Diagnosis [...] potassium improved with dietary restriction and Lasix. [facility] Other 12-04-2023 Evaluation note* Encounter Date Diagnosis [...] 4, GFR 15-29 ml/min (ICD-10 - N18.4) [facility] Other 11-21-2023 Evaluation note* Encounter Date Diagnosis Assessment Notes Treatment Notes Treatment Clinical Notes Aug, Anemia of renal disease (ICD-10 - D63.1) Aug, CKD (chronic kidney disease) stage 4, GFR 15-29 ml/min (ICD-10 - N18.4) [facility] Other 11-09-2023 Evaluation note* Encounter Date Diagnosis [...] of kidney mass hydronephrosis or kidney stones. [facility] Other 10-26-2023 Evaluation note* Encounter Date Diagnosis [...] potassium improved with dietary restriction and Lasix. [facility] Other 09-18-2023 Evaluation note* Encounter Date Diagnosis [...] potassium improved with dietary restriction and Lasix. [facility] Other 08-31-2023 Evaluation note* Encounter Date Diagnosis [...] potassium improved with dietary restriction and Lasix. [facility] Other 07-25-2023 Evaluation note* Encounter Date Diagnosis [...] to normal with dietary restriction and Lasix. [facility] Other 07-01-2023 Evaluation note* Encounter Date Diagnosis Assessment Notes Treatment Notes Treatment Clinical Notes Apr, CKD (chronic kidney disease) stage 4, GFR 15-29 ml/min (ICD-10 - N18.4) Apr, Anemia of renal disease (ICD-10 - D63.1) [facility] Other 06-27-2023 Evaluation note* Encounter Date Diagnosis [...] to normal with dietary restriction and Lasix. [facility] Other 06-01-2023 Evaluation note* Encounter Date Diagnosis [...] potassium diet and provide information about it. [facility] Other 03-16-2023 Evaluation note* Encounter Date Diagnosis [...] to Continue Vit D 5000 units daily [facility] Other 01-30-2023 Evaluation note* Encounter Date Diagnosis [...] to Continue Vit D 5000 units daily [facility] Other 12-22-2022 Evaluation note* Encounter Date Diagnosis [...] to Continue Vit D 5000 units daily [facility] Other 11-16-2022 Evaluation note* Encounter Date Diagnosis [...] to Continue Vit D 5000 units daily [facility] Other 08-04-2022 Evaluation note* Encounter Date Diagnosis Assessment Notes Treatment Notes Treatment Clinical Notes May, Hypertensive chronic kidney disease with stage 1 through stage 4 chronic kidney disease, or unspecified chronic kidney disease (ICD-10 - I12.9) [facility] Other 08-02-2022 Evaluation note* Encounter Date Diagnosis [...] to Continue Vit D 5000 units daily [facility] Other 07-19-2022 Evaluation note* Encounter Date Diagnosis Assessment Notes Treatment Notes Treatment Clinical Notes Apr, Hypertensive chronic kidney disease with stage 1 through stage 4 chronic kidney disease, or unspecified chronic kidney disease (ICD-10 - I12.9) [facility] Other 04-14-2022 Evaluation note* Encounter Date Diagnosis [...] to take Vit D 1000 units daily [facility] Other Evaluation noteNo [employer] Other Evaluation note* Diagnosis 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 Hypertensive urgency Shortness of breath Paroxysmal atrial fibrillation (CMS-HCC) Atrial fibrillation Localized edema Ed[facility] N[facility]ative - Reported* Type Description Date [...] History SEE ABOVE Hospitalization History COVID 09/2020 [facility] Other history general Narrative - Reported* Type [...] History SEE ABOVE Hospitalization History COVID 09/2020 [facility] Other history general Narrative - Reported* Type [...] History SEE ABOVE Hospitalization History COVID 09/2020 [facility] Other History general Narrative - [facility] Other History general Narrative - Reported* Type [...] History SEE ABOVE Hospitalization History COVID 09/2020 [facility] Other InstructionsNot on filedocumented in this encounter [facility] Summary Purpose Family History No Family [...] and content) DATE CREATED AUTHOR 04/02/2018 [facility] DATE CREATED AUTHOR AUTHOR'S ORGANIZ ATION 01/27/2023 [facility] DATE CREATED AUTHOR AUTHOR'S ORGANIZ ATION 01/18/2024 [facility] DATE CREATED AUTHOR AUTHOR'S ORGANIZ ATION 05/12/2024 [facility] DATE CREATED AUTHOR AUTHOR'S ORGANIZ ATION 05/26/2024 [facility] EPIC REASON FOR VISIT (unrecogniz ed section and content) Reason Comments Med Refill Care Teams (unrecognized sec tion and content) 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 [employer] [facility]. provides no warranty or guarantee of the accuracy or completeness of information in this document.
[2024-06-09 10:01] LABS: Creatinine Urine Random 117.64 mg/dL (20.00-300.00); Protein Creatinine Ratio Urine 0.66; Total Protein Urine Random 77.8 mg/dL (<=11.9)
[2024-06-09 10:04] LABS: Hemoglobin 9.8 g/dL (12.0-16.0); Mean Corpuscular HGB Conc 33.8 g/dL (29.9-35.2); Mean Corpuscular Hemoglobin 30.9 pg (26.7-34.0); Mean Corpuscular Volume 91.5 fL (81.0-99.0); Mean Platelet Volume 9.6 fL (9.5-13.5); Platelet Count 207 10^3/uL (150-450); Red Blood Count 3.17 10^6/uL (4.20-5.40); Red Cell Distribution Width 15.2 % (11.0-15.0); White Blood Count 6.8 10^3/uL (4.0-11.0)
[2024-06-09 10:38] LABS: Albumin Level 2.9 g/dL (3.4-5.0); Anion Gap 17.4; BUN Creatinine Ratio 27.6; Calcium 8.8 mg/dL (8.5-10.1); Carbon Dioxide 21.9 mmol/L (21.0-32.0); Chloride 100 mmol/L (98-107); Estimated GFR (African America 31 (>=60); Estimated GFR (Non-African Ame 25 (>=60); Glucose 409 mg/dL (74-106); Magnesium 1.7 mg/dL (1.8-2.4); Phosphorus 3.8 mg/dL (2.6-4.7); Potassium 4.3 mmol/L (3.5-5.1); Sodium 135 mmol/L (136-145); Uric Acid 3.9 mg/dL (2.6-6.0)
[2024-06-09 10:47] LABS: Percent Iron Saturation 34.9 %
[2024-06-10 10:09] LABS: PTH, Intact 62 pg/mL (15-65)
== END 2024-06-09 09:25 | disposition home or self-care (01) ==
LOC: LAB 09:24
PROVIDERS: PCP Family Medicine; Visit Provider Internal Medicine
DX: I12.9 Hypertensive chronic kidney disease with stage 1 through stage 4 chronic kidney disease, or unspecified chronic kidney disease (principal); N18.4 Chronic kidney disease, stage 4 (severe); N18.9 Chronic kidney disease, unspecified; D63.1 Anemia in chronic kidney disease; I73.9 Peripheral vascular disease, unspecified; N25.81 Secondary hyperparathyroidism of renal origin
CPT/HCPCS: 36415; 80069; 82306; 82570; 82728; 83540; 83550; 83735; 83970; 84156; 84550; 85027

== ENCOUNTER 2024-06-10 08:16 | Outpatient (OUT) | payer MEDICARE, SELFPAY ==
--- OUTSIDE RECORDS SUMMARY | 2024-06-10 08:21 | XMS_ITS | CCD ---
Author Organization [facility] Care Team Providers Care Manager Performance Name Role Phone PHYSICIAN, DEFAULT Unavailable Unavailable [...] Attending Unavailable DOREEN, RON Admitting Unavailable DOREEN, ORN Consulting Unavailable HOY ., DR BARTLETT Primary [...] Unavailable Fiorellay Dhruv NESS Primary Care Provider [phone] THUAN DELVALLE Attending Unavailable DHRUV RUBI Referring [...] amLODIPine; Translations: [AMLODIPINE] Drug Allergy 03-28-20 05 [facility] [employer] (20 sources) Amoxicillin / Clavulanate Drug Allergy 11-23-19 21 [facility] [employer] Other (20 sources) Contrast media Propensity to adverse reactions Unknown [employer] Other (2 sources) Doxazosin; Translations: [doxazosin] Drug Allergy Unknown [employer] Other (20 sources) Sulfamethoxazole / Trimethoprim Drug Allergy 11-23-19 21 [place] [employer] Other (20 sources) Doxazosin; Translations: [DOXAZOSIN] Drug Allergy 11-23-19 21 Unknown [employer] Other (9 sources) Amoxicillin / Clavulanate; Translations: [Augmentin] Drug Allergy 11-16-19 16 Unknown [facility] (1 source) amLODIPine Drug Allergy 04-25-20 14 [facility] (1 source) Sulfamethoxazole / Trimethoprim Drug Allergy 03-09-20 13 [facility] (3 sources) Iodinated Contrast Media; Translations: [IODINATED CONTRAST MEDIA] Propensity to adverse reactions to drug 11-23-19 21 [employer] (2 sources) Sulfamethoxazole / Trimethoprim; Translations: [SULFAMETHOXAZOLE-T RIMETHOPRIM] Drug Allergy 08-04-20 15 [facility] (2 sources) AMOXICILLIN-POT CLAVULANATE; Translations: [AMOXICILLIN-POT CLAVULANATE] Propensity to adverse reactions to drug (disorder) 11-23-19 21 [facility] (1 source) Sulfamethoxazole; Translations: [SULFAMETHOXAZOLE] Drug Allergy 03-12-20 23 [facility] Rep[facility] Medications Current Medications Medication Drug Class(es) [...] coronary artery bypass graft , 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 , Paroxysmal atrial [...] (LIPITOR) 80 mg tablet Indications: 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 0 12/19/2020 Active retacrit 37728 unit/ml solution (5 sources) Retacrit 31153 UNIT/ML as directed Injection Active Sennosides-Docusate Sodium [...] Coronary atherosclerosis; Translations: [Atherosclerotic heart disease of tribe coronary artery without angina pectoris] Onset: 1 [...] Range Facility Office Visiton 05-11-2024 Follow-up visit [id number] Garima Robin 1945 F Date Provider Department Center 05/11/2024 271-CARLIE CATHERINE [facility] No family history on file Level of Service:09517 SD OFFICE/OUTPATIENT ESTABLISHED MOD MDM 30 MIN Normal [facility] Office Visiton 02-10-2024 Follow-up visit [id number] Garima Robin 1945 F Date Provider Department Divide 02/10/2024 CARLIE TORRES Hos No family history on file Level of Service:58728 SD OFFICE/OUTPATIENT ESTABLISHED MOD MDM 30 MIN Normal [facility] HEMOGRAM AND PLATELon 2022 Hematocrit (Bld) [Volume fraction] 28.8 % Critically low 36.0-48.0 [facility] Comment on above: Performed By: #### H H #### [facility] [address] [place] [address] Dr. Ember Teague Hemoglobin (Bld) [Mass/Vol] 9.6 g/dL Critically low 12.0-16.0 [facility] Comment on above: Performed By: #### H H #### [facility] [address] [address] [address] Ember Teague MCH (RBC) [Entitic mass] 30.7 pg Normal 26.7-34.0 [facility] Comment on above: Performed By: #### H H #### [facility] [address] [address] [address] Ember Teague MCHC (RBC) [Mass/Vol] 33.3 g/dL Normal 29.9-35.2 [facility] Comment on above: Performed By: #### H H #### [facility] [address] [address] [address] Ember Teague MCV (RBC) [Entitic vol] 92.0 fL Normal 81.0-99.0 [facility] Comment on above: Performed By: #### H H #### [facility] [address] [place] [address] Dr. Ember Teague PLT 214 103/ul Normal 150-450 [facility] Comment on above: Performed By: #### H H #### [facility] [address] [address] [address] Ember Teague RBC 3.13 106/ul Critically low 4.20-5.40 [facility] Comment on above: Performed By: #### H H #### [facility] [address] [address] [address] Ember Teague WBC 7.4 103/ul Normal 4.0-11.0 [facility] Comment on above: Performed By: #### H H #### [facility] [address] [place] [address] Dr. Ember Teague MAGNESIUMon 01-22-2023 Magnesium [Mass/Vol] 1.8 mg/dL Normal 1.8-2.4 [facility] Comment on above: Performed By: #### M G, RENAL #### [facility] [address] [place] [address] Dr. Ember Teague RENAL FUNCTION PANELon 01-22 Albumin [Mass/Vol] 3.6 g/dL Normal 3.4-5.0 [facility] Comment on above: Performed By: #### M G, RENAL #### [facility] [address] [address] [address] Ember Teague Calcium [Mass/Vol] 9.7 mg/dL Normal 8.5-10.1 [facility] Comment on above: Performed By: #### M G, RENAL #### [facility] [address] [place] [address] Dr. Ember Teague Chloride [Moles/Vol] 105 mmol/L Normal 98-107 [facility] Comment on above: Performed By: #### M G, RENAL #### [facility] [address] [address] [address] Ember Teague CO2 [Moles/Vol] 22.6 mmol/L Normal 21.0-32.0 [facility] Comment on above: Performed By: #### M G, RENAL #### [facility] [address] [address] [address] Ember Teague Creatinine [Mass/Vol] 2.18 mg/dL Critically high 0.55-1.02 [facility] Comment on above: Performed By: #### M G, RENAL #### [facility] [address] [address] [address] Ember Teague EGFR-AF [facility] 26 mL/min/1.73m2 Critically low >=60 [facility] Comment on above: Performed By: #### M G, RENAL #### [facility] [address] [address] [address] Ember Teague EGFR-NON AF [facility] 22 mL/min/1.73m2 Critically low >=60 [facility] Comment on above: Performed By: #### M G, RENAL #### [facility] [address] [address] [address] Ember Teague Glucose [Mass/Vol] 134 mg/dL Critically high 74-106 [facility] Comment on above: Performed By: #### M G, RENAL #### [facility] [address] [address] [address] Ember Teague Phosphate [Mass/Vol] 4.6 mg/dL Normal 2.6-4.7 [facility] Comment on above: Performed By: #### M G, RENAL #### [facility] [address] [place] [address] Dr. Ember Teague Potassium [Moles/Vol] 5.1 mmol/L Normal 3.5-5.1 [facility] Comment on above: Performed By: #### M G, RENAL #### [facility] [address] [place] [address] Dr. Ember Teague Sodium [Moles/Vol] 138 mmol/L Normal 136-145 [facility] Comment on above: Performed By: #### M G, RENAL #### [facility] [address] [address] [address] Ember Teague Urea nitrogen [Mass/Vol] 61.0 mg/dL Critically high 7.0-18.0 [facility] Comment on above: Performed By: #### M G, RENAL #### [facility] [address] [address] [address] Ember Teague MG MAMM SCREEN 3D MAY CADon 12-17-2022 MG MAMM SCREEN 3D MAY CAD Patient: KYLAH ROBIN Exam Date: 12/17/2022 : 1945 Gender:F Ordering : DR DHRUV RUBI . Admission #: [id number] Family : Order #: [id number] CLICK HERE TO VIEW EXAM RADIOLOGY REPORT [...] lung cancer at age 61. LOCATION: [facility] BREAST COMPOSITION: Scattered areas fibroglandular density. [...] MD on 12/17/2022 at 11:59 Normal [facility] FERRITINon 12-10-2022 Ferritin [Mass/Vol] 681.0 ng/mL Critically high 8.0-252.0 [facility] Comment on above: Performed By: #### P THINT #### [facility] [address] [address] [address] Ember Teague HEMOGRAM AND PLATELon 2022 Hematocrit (Bld) [Volume fraction] 27.1 % Critically low 36.0-48.0 [facility] Comment on above: Performed By: #### C VDTBH #### [facility] [address] [address] [address] Ember Teague Hemoglobin (Bld) [Mass/Vol] 9.7 g/dL Critically low 12.0-16.0 [facility] Comment on above: Performed By: #### C VDTBH #### [facility] [address] [place] [address] Dr. Ember Teague MCH (RBC) [Entitic mass] 31.4 pg Normal 26.7-34.0 [facility] Comment on above: Performed By: #### C VDTBH #### [facility] [address] [place] [address] Dr. Ember Teague MCHC (RBC) [Mass/Vol] 35.8 g/dL Critically high 29.9-35.2 [facility] Comment on above: Performed By: #### C VDTBH #### [facility] [address] [place] [address] Dr. Ember Teague MCV (RBC) [Entitic vol] 87.7 fL Normal 81.0-99.0 [facility] Comment on above: Performed By: #### C VDTBH #### [facility] [address] [place] [address] Dr. Ember Teague PLT 218 103/ul Normal 150-450 [facility] Comment on above: Performed By: #### C VDTBH #### [facility] [address] [place] [address] Dr. Ember Teague RBC 3.09 106/ul Critically low 4.20-5.40 [facility] Comment on above: Performed By: #### C VDTBH #### [facility] [address] [place] [address] Dr. Ember Teague WBC 6.6 103/ul Normal 4.0-11.0 [facility] Comment on above: Performed By: #### C VDTBH #### [facility] [address] [place] [address] Dr. Ember Teague IRON AND TIBCon 12-10-2022 % SATURATION 30.2 % Normal [facility] Comment on above: Performed By: #### P THINT #### [facility] [address] [place] [address] Dr. Ember Teague Iron [Mass/Vol] 84.0 ug/dL Normal 50.0-170.0 [facility] Comment on above: Performed By: #### P THINT #### [facility] [address] [place] [address] Dr. Ember Teague TIBC DIRECT 278.0 ug/dL Normal 250.0-450.0 [facility] Comment on above: Performed By: #### P THINT #### [facility] [address] [place] [address] Dr. Ember Teague XR FOOT MAY MIN [...] BENI APARICIO Date: 2022-11-20 14:03 Normal [facility] HEMOGRAM AND PLATELon 2022 Hematocrit (Bld) [Volume fraction] 27.7 % Critically low 36.0-48.0 [facility] Comment on above: Performed By: #### R ENAL #### [facility] [address] [address] [address] Ember Teague Hemoglobin (Bld) [Mass/Vol] 10.0 g/dL Critically low 12.0-16.0 [facility] Comment on above: Performed By: #### R ENAL #### [facility] [address] [place] [address] Dr. Ember Teague MCH (RBC) [Entitic mass] 31.6 pg Normal 26.7-34.0 [facility] Comment on above: Performed By: #### R ENAL #### [facility] [address] [address] [address] Ember Teague MCHC (RBC) [Mass/Vol] 36.1 g/dL Critically high 29.9-35.2 [facility] Comment on above: Performed By: #### R ENAL #### [facility] [address] [address] [address] Ember Teague MCV (RBC) [Entitic vol] 87.7 fL Normal 81.0-99.0 [facility] Comment on above: Performed By: #### R ENAL #### [facility] [address] [address] [address] Ember Teague PLT 182 103/ul Normal 150-450 [facility] Comment on above: Performed By: #### R ENAL #### [facility] [address] [place] [address] Dr. Ember Teague RBC 3.16 106/ul Critically low 4.20-5.40 [facility] Comment on above: Performed By: #### R ENAL #### [facility] [address] [place] [address] Dr. Ember Teague WBC 6.8 103/ul Normal 4.0-11.0 [facility] Comment on above: Performed By: #### R ENAL #### [facility] [address] [place] [address] Dr. Ember Teague PROF CHEM 8 (BAS METB)on Anion gap [Moles/Vol] 17.6 mmol/L Normal [facility] Comment on above: Performed By: #### C VDTBH #### [facility] [address] [place] [address] Dr. Ember Teague Calcium [Mass/Vol] 9.0 mg/dL Normal 8.5-10.1 [facility] Comment on above: Performed By: #### C VDTBH #### [facility] [address] [place] [address] Dr. Ember Teague Chloride [Moles/Vol] 104 mmol/L Normal 98-107 [facility] Comment on above: Performed By: #### C VDTBH #### [facility] [address] [address] [address] Ember Teague CO2 [Moles/Vol] 22.2 mmol/L Normal 21.0-32.0 [facility] Comment on above: Performed By: #### C VDTBH #### [facility] [address] [address] [address] Ember Teague Creatinine [Mass/Vol] 2.03 mg/dL Critically high 0.55-1.02 [facility] Comment on above: Performed By: #### C VDTBH #### [facility] [address] [address] [address] Ember Teague EGFR-AF [facility] 29 mL/min/1.73m2 Critically low >=60 [facility] Comment on above: Performed By: #### C VDTBH #### [facility] [address] [address] [address] Ember Teague EGFR-NON AF [facility] 24 mL/min/1.73m2 Critically low >=60 [facility] Comment on above: Performed By: #### C VDTBH #### [facility] [address] [address] [address] Ember Teague Glucose [Mass/Vol] 154 mg/dL Critically high 74-106 [facility] [place] [facility] Comment on above: Performed By: #### C VDTBH #### [facility] [address] [address] [address] Ember Teague Potassium [Moles/Vol] 4.8 mmol/L Normal 3.5-5.1 [facility] Comment on above: Performed By: #### C VDTBH #### [facility] [address] [address] [address] Ember Teague Sodium [Moles/Vol] 139 mmol/L Normal 136-145 [facility] Comment on above: Performed By: #### C VDTBH #### [facility] [address] [address] [address] Ember Teague Urea nitrogen [Mass/Vol] 43.0 mg/dL Critically high 7.0-18.0 [facility] Comment on above: Performed By: #### C VDTBH #### [facility] [address] [address] [address] Ember Teague Urea nitrogen/Creatinine [Mass ratio] 21.2 mg/mg Normal [facility] Comment on above: Performed By: #### C VDTBH #### [facility] [address] [address] [address] Ember Teague CULTURE SPUTUMon 10-24-2022 CULTURE SPUTUM Culture Observations : Beta lactamase positive Isolate 1 Haemophilus influenzae Moderate growth of Normal [facility] Comment on above: Performed By: #### R ENAL #### [facility] [address] [address] [address] Ember Teague SPUTUM GRAM STAINon 10-24-19 COMMENTS Normal [facility] Comment on above: Performed By: #### R ENAL #### [facility] [address] [address] [address] Ember Teague DIPHTHEROIDS Normal [facility] Comment on above: Performed By: #### R ENAL #### [facility] [address] [address] [address] Ember Teague EPITHELIALS >25 Normal [facility] Comment on above: Performed By: #### R ENAL #### [facility] [address] [address] [address] Ember Teague FUNGAL ELEMENTS Normal [facility] Comment on above: Performed By: #### R ENAL #### [facility] [address] [address] [address] Ember Teague GRAM NEG BACILLI Normal [facility] Comment on above: Performed By: #### R ENAL #### [facility] [address] [address] [address] Ember Teague GRAM NEG DIPPLOCOCCI FEW Normal [facility] Comment on above: Performed By: #### R ENAL #### [facility] [address] [address] [address] Ember Teague GRAM POS BACILLI FEW Normal [facility] Comment on above: Performed By: #### R ENAL #### [facility] [address] [address] [address] Ember Teague GRAM POSITIVE COCCI MANY Normal [facility] Comment on above: Performed By: #### R ENAL #### [facility] [address] [address] [address] Ember Teague WBC (Bld) [#/Vol] 10*3/uL Normal [facility] Comment on above: Performed By: #### R ENAL #### [facility] [address] [place] [address] Dr. Ember Teague XR CHEST 2 Von [...] ANGELINA BRISENO Date: 2022-10-24 16:22 Normal [facility] FERRITINon 09-18-2022 Ferritin [Mass/Vol] 612.0 ng/mL Critically high 8.0-252.0 [facility] Comment on above: Performed By: #### F ERR, FETIBC #### [facility] [address] [place] [address] Dr. Ember Teague HEMOGRAM AND PLATELon 2021 Hematocrit (Bld) [Volume fraction] 28.1 % Critically low 36.0-48.0 [facility] Comment on above: Performed By: #### C BC #### [facility] [address] [place] [address] Dr. Ember Teague Hemoglobin (Bld) [Mass/Vol] 9.7 g/dL Critically low 12.0-16.0 [facility] Comment on above: Performed By: #### C BC #### [facility] [address] [place] [address] Dr. Ember Teague MCH (RBC) [Entitic mass] 31.3 pg Normal 26.7-34.0 [facility] Comment on above: Performed By: #### C BC #### [facility] [address] [place] [address] Dr. Ember Teague MCHC (RBC) [Mass/Vol] 34.5 g/dL Normal 29.9-35.2 [facility] Comment on above: Performed By: #### C BC #### [facility] [address] [place] [address] Dr. Ember Teague MCV (RBC) [Entitic vol] 90.6 fL Normal 81.0-99.0 [facility] Comment on above: Performed By: #### C BC #### [facility] [address] [place] [address] Dr. Ember Teague PLT 183 103/ul Normal 150-450 [facility] Comment on above: Performed By: #### C BC #### [facility] [address] [place] [address] Dr. Ember Teague RBC 3.10 106/ul Critically low 4.20-5.40 [facility] Comment on above: Performed By: #### C BC #### [facility] [address] [place] [address] Dr. Ember Teague WBC 7.2 103/ul Normal 4.0-11.0 [facility] Comment on above: Performed By: #### C BC #### [facility] [address] [place] [address] Dr. Ember Teague IRON AND TIBCon 09-18-2022 % SATURATION 36.0 % Normal [facility] Comment on above: Performed By: #### F ERR, FETIBC #### [facility] [address] [place] [address] Dr. Ember Teague Iron [Mass/Vol] 77.0 ug/dL Normal 50.0-170.0 [facility] Comment on above: Performed By: #### F ERR, FETIBC #### [facility] [address] [place] [address] Dr. Ember Teague TIBC DIRECT 214.0 ug/dL Critically low 250.0-450.0 [facility] Comment on above: Performed By: #### F ERR, FETIBC #### [facility] [address] [place] [address] Dr. Ember Teague RENAL FUNCTION PANELon 09-18 Albumin [Mass/Vol] 3.7 g/dL Normal 3.4-5.0 [facility] Comment on above: Performed By: #### R ENAL #### [facility] [address] [address] [address] Ember Teague Calcium [Mass/Vol] 9.5 mg/dL Normal 8.5-10.1 [facility] Comment on above: Performed By: #### R ENAL #### [facility] [address] [place] [address] Dr. Ember Teague Chloride [Moles/Vol] 103 mmol/L Normal 98-107 [facility] Comment on above: Performed By: #### R ENAL #### [facility] [address] [place] [address] Dr. Ember Teague CO2 [Moles/Vol] 21.1 mmol/L Normal 21.0-32.0 [facility] Comment on above: Performed By: #### R ENAL #### [facility] [address] [place] [address] Dr. Ember Teague Creatinine [Mass/Vol] 1.85 mg/dL Critically high 0.55-1.02 [facility] Comment on above: Performed By: #### R ENAL #### [facility] [address] [place] [address] Dr. Ember Teague EGFR-AF [facility] 32 mL/min/1.73m2 Critically low >=60 [facility] Comment on above: Performed By: #### R ENAL #### [facility] [address] [place] [address] Dr. Ember Teague EGFR-NON AF [facility] 26 mL/min/1.73m2 Critically low >=60 [facility] Comment on above: Performed By: #### R ENAL #### [facility] [address] [place], [place] [id number] Dr. Ember Teague Glucose [Mass/Vol] 183 mg/dL Critically high 74-106 [facility] Comment on above: Performed By: #### R ENAL #### [facility] [address] [address] [address] Ember Teague Phosphate [Mass/Vol] 3.7 mg/dL Normal 2.6-4.7 [facility] Comment on above: Performed By: #### R ENAL #### [facility] [address] [address] [address] Ember Teague Potassium [Moles/Vol] 4.9 mmol/L Normal 3.5-5.1 [facility] Comment on above: Performed By: #### R ENAL #### [facility] [address] [place] [address] Dr. Ember Teague Sodium [Moles/Vol] 138 mmol/L Normal 136-145 [facility] Comment on above: Performed By: #### R ENAL #### [facility] [address] [place] [address] Dr. Ember Teague Urea nitrogen [Mass/Vol] 40.0 mg/dL Critically high 7.0-18.0 [facility] Comment on above: Performed By: #### R ENAL #### [facility] [address] [place] [address] Dr. Ember Teague CULTURE URINEon 09-15-2022 CULTURE [...] Trimethoprim/Sulfamet hoxazole <=20 S F Normal [facility] Comment on above: Performed By: #### R ENAL #### [facility] [address] [place] [address] Dr. Ember Teague BNPon 09-11-2022 Natriuretic peptide B (Bld) [Mass/Vol] 408.0 pg/mL Normal <=1,800.0 [facility] Comment on above: Performed By: #### P THINT #### [facility] [address] [place] [address] Dr. Ember Teague CBC AUTO DIFFon 09-11-2022 BASO # 0.0 103/ul Normal 0.0-0.1 [facility] Comment on above: Performed By: #### C BC #### [facility] [address] [place] [address] Dr. Ember Teague Basophils/100 WBC (Bld) 0.3 % Normal 0.2-2.0 [facility] Comment on above: Performed By: #### C BC #### [facility] [address] [place] [address] Dr. Ember Teague EO # 0.1 103/ul Normal 0.0-0.7 [facility] Comment on above: Performed By: #### C BC #### [facility] [address] [place] [address] Dr. Ember Taegue Eosinophils/100 WBC (Bld) 1.9 % Normal 0.9-7.0 [facility] Comment on above: Performed By: #### C BC #### [facility] [address] [place] [address] Dr. Ember Teague Erythrocyte distribution width (RBC) [Ratio] 15.2 % Critically high 11.0-15.0 [facility] Comment on above: Performed By: #### C BC #### [facility] [address] [place] [address] Dr. Ember Teague Hematocrit (Bld) [Volume fraction] 26.6 % Critically low 36.0-48.0 [facility] Comment on above: Performed By: #### C BC #### [facility] [address] [place] [address] Dr. Ember Teague Hemoglobin (Bld) [Mass/Vol] 9.0 g/dL Critically low 12.0-16.0 [facility] Comment on above: Performed By: #### C BC #### [facility] [address] [place] [address] Dr. Ember Teague IG # 0.02 10e3/ul Normal 0.00-0.03 [facility] Comment on above: Performed By: #### C BC #### [facility] [address] [place] [address] Dr. Ember Teague IG % 0.3 % Normal 0.0-0.5 [facility] Comment on above: Performed By: #### C BC #### [facility] [address] [place] [address] Dr. Ember Teague LYMPH # 1.9 103/ul Normal 1.2-3.8 [facility] Comment on above: Performed By: #### C BC #### [facility] [address] [place] [address] Dr. mEber Teague Lymphocytes/100 WBC (Bld) 32.4 % Normal 20.5-60.0 [facility] Comment on above: Performed By: #### C BC #### [facility] [address] [place] [address] Dr. Ember Teague MANUAL DIFF REQ NO Normal [facility] Comment on above: Performed By: #### C BC #### [facility] [address] [place] [address] Dr. Ember Teague MCH (RBC) [Entitic mass] 31.1 pg Normal 26.7-34.0 [facility] Comment on above: Performed By: #### C BC #### [facility] [address] [place] [address] Dr. Ember Teague MCHC (RBC) [Mass/Vol] 33.8 g/dL Normal 29.9-35.2 [facility] Comment on above: Performed By: #### C BC #### [facility] [address] [place] [address] Dr. Ember Teague MCV (RBC) [Entitic vol] 92.0 fL Normal 81.0-99.0 [facility] Comment on above: Performed By: #### C BC #### [facility] [address] [address] [address] Ember Teague MONO # 0.6 103/ul Normal 0.3-0.8 [facility] Comment on above: Performed By: #### C BC #### [facility] [address] [address] [address] Ember Teague Monocytes/100 WBC (Bld) 10.0 % Normal 1.7-12.0 [facility] Comment on above: Performed By: #### C BC #### [facility] [address] [place] [address] Dr. Ember Teague NEUT # 3.2 103/ul Normal 1.4-6.5 [facility] Comment on above: Performed By: #### C BC #### [facility] [address] [place] [address] Dr. Ember Teague Neutrophils/100 WBC (Bld) 55.1 % Normal 43.0-75.0 [facility] Comment on above: Performed By: #### C BC #### [facility] [address] [place] [address] Dr. Ember Teague Platelet mean volume (Bld) [Entitic vol] 9.4 fL Critically low 9.5-13.5 [facility] Comment on above: Performed By: #### C BC #### [facility] [address] [place] [address] Dr. Ember Teague PLT 196 103/ul Normal 150-450 [facility] Comment on above: Performed By: #### C BC #### [facility] [address] [place] [address] Dr. Ember Teague RBC 2.89 106/ul Critically low 4.20-5.40 [facility] Comment on above: Performed By: #### C BC #### [facility] [address] [place] [address] Dr. Ember Teague WBC 5.8 103/ul Normal 4.0-11.0 [facility] Comment on above: Performed By: #### C BC #### [facility] [address] [place] [address] Dr. Ember Teague PROF 14(COMP METB)on 022 Albumin [Mass/Vol] 3.7 g/dL Normal 3.4-5.0 [facility] Comment on above: Performed By: #### P THINT #### [facility] [address] [place] [address] Dr. Ember Teague Albumin/Globulin [Mass ratio] 1.0 {ratio} Normal [facility] Comment on above: Performed By: #### P THINT #### [facility] [address] [place] [address] Dr. Ember Teague ALP [Catalytic activity/Vol] 79 U/L Normal 46-116 [facility] Comment on above: Performed By: #### P THINT #### [facility] [address] [place] [address] Dr. Ember Teague ALT [Catalytic activity/Vol] 24 U/L Normal 14-59 [facility] Comment on above: Performed By: #### P THINT #### [facility] [address] [place] [address] Dr. Ember Teague Anion gap [Moles/Vol] 12.8 mmol/L Normal [facility] Comment on above: Performed By: #### P THINT #### [facility] [address] [place] [address] Dr. Ember Teague AST [Catalytic activity/Vol] 17 U/L Normal 15-37 [facility] Comment on above: Performed By: #### P THINT #### [facility] [address] [place] [address] Dr. Ember Teague Bilirubin [Mass/Vol] 0.5 mg/dL Normal 0.2-1.0 [facility] Comment on above: Performed By: #### P THINT #### [facility] [address] [place] [address] Dr. Ember Teague Calcium [Mass/Vol] 9.4 mg/dL Normal 8.5-10.1 [facility] Comment on above: Performed By: #### P THINT #### [facility] [address] [address] [address] Ember Teague Chloride [Moles/Vol] 101 mmol/L Normal 98-107 [facility] Comment on above: Performed By: #### P THINT #### [facility] [address] [address] [address] Ember Teague CO2 [Moles/Vol] 24.3 mmol/L Normal 21.0-32.0 [facility] Comment on above: Performed By: #### P THINT #### [facility] [address] [address] [address] Ember Teague Creatinine [Mass/Vol] 2.84 mg/dL Critically high 0.55-1.02 [facility] Comment on above: Performed By: #### P THINT #### [facility] [address] [address] [address] Ember Teague EGFR-AF [facility] 20 mL/min/1.73m2 Critically low >=60 [facility] Comment on above: Performed By: #### P THINT #### [facility] [address] [address] [address] Ember Teague EGFR-NON AF [facility] 16 mL/min/1.73m2 Critically low >=60 [facility] Comment on above: Performed By: #### P THINT #### [facility] [address] [address] [address] Ember Teague Globulin (S) [Mass/Vol] 3.7 g/dL Normal [facility] Comment on above: Performed By: #### P THINT #### [facility] [address] [address] [address] Ember Teague Glucose [Mass/Vol] 174 mg/dL Critically high 74-106 [facility] Comment on above: Performed By: #### P THINT #### [facility] [address] [address] [address] Ember Teague Potassium [Moles/Vol] 5.1 mmol/L Normal 3.5-5.1 [facility] Comment on above: Performed By: #### P THINT #### [facility] [address] [place], [place] [address] Dr. Ember Teague Protein [Mass/Vol] 7.4 g/dL Normal 6.4-8.2 [facility] Comment on above: Performed By: #### P THINT #### [facility] [address] [place], [place] [address] Dr. Ember Teague Sodium [Moles/Vol] 133 mmol/L Critically low 136-[address] [facility] Comment on above: Performed By: #### P THINT #### [facility] [address] [address] [address] Ember Teague Urea nitrogen [Mass/Vol] 68.0 mg/dL Critically high 7.0-18.0 [facility] Comment on above: Performed By: #### P THINT #### [facility] [address] [address] [address] Ember Teague Urea nitrogen/Creatinine [Mass ratio] 23.9 mg/mg Normal [facility] Comment on above: Performed By: #### P THINT #### [facility] [address] [address] [address] Ember Teague TROPONIN, HIGH SENSITIVITYon 09-11-2022 HSTROP 9.1 pg/mL Normal 4.0-51.3 [facility] Comment on above: Result Comment: CUT- OFF POINTS HAVE BEEN ESTABLISHED BASED ON THE FOURTH UNIVERSAL DEFINITIONS OF MYOCARDIAL INFARCTION. THE UPPER REFERENCE LIMIT (URL) OF TROPONIN, DEFINED THE 99TH PERCENTILE OF cTnI DISTRIBUTION IN A REFERENCE POPULATION, HAS BEEN CONFIRMED THE DECISION THRESHOLD FOR IA DIAGNOSIS. Performed By: #### P THINT #### [facility] [address] [place] [address] [id number] [address] Ember Teague UA RANDOM W/MICROSCOPICon BACTERIA NONE SEEN Normal NONE SEEN [facility] Comment on above: Performed By: #### C VDTBH #### [facility] [address] [place], [place] [id number] Dr. Ember Teague Bilirubin Ql (U) Negative Normal NEGATIVE [facility] Comment on above: Performed By: #### C VDTBH #### [facility] [address] [place] [address] Dr. Ember Teague CAST NONE SEEN Normal NONE SEEN [facility] Comment on above: Performed By: #### C VDTBH #### [facility] [address] [place] [address] Dr. Ember Teague Clarity (U) CLEAR Normal CLEAR [facility] Comment on above: Performed By: #### C VDTBH #### [facility] [address] [place] [address] Dr. Ember Teague Color (U) LT. YELLOW Normal YELLOW [facility] Comment on above: Performed By: #### C VDTBH #### [facility] [address] [place] [address] Dr. Ember Teague Crystals LM Nom (Urine sed) NONE SEEN Normal NONE SEEN [facility] Comment on above: Performed By: #### C VDTBH #### [facility] [address] [place] [address] Dr. Ember Teague Epithelial cells LM Ql (Urine sed) FEW Abnormal NONE SEEN /RARE [facility] Comment on above: Performed By: #### C VDTBH #### [facility] [address] [place] [address] Dr. Ember Teague Glucose Ql (U) Negative Normal NEGATIVE The [facility] Comment on above: Performed By: #### C VDTBH #### [facility] [address] [place] [address] Dr. Ember Teague Hemoglobin Ql (U) Negative Normal NEGATIVE [facility] Comment on above: Performed By: #### C VDTBH #### [facility] [address] [place] [address] Dr. Ember Teague Ketones Ql (U) Negative Normal NEGATIVE [facility] Comment on above: Performed By: #### C VDTBH #### [facility] [address] [place] [address] Dr. Ember Teague LEUKOCYTES Negative Normal NEGATIVE [facility] Comment on above: Performed By: #### C VDTBH #### [facility] [address] [place] [address] Dr. Ember Teague MUCOUS NONE SEEN Normal NONE SEEN [facility] Comment on above: Performed By: #### C VDTBH #### [facility] [address] [address] [address] Ember Teague Nitrite Ql (U) Negative Normal NEGATIVE The [facility] Comment on above: Performed By: #### C VDTBH #### [facility] [address] [place] [address] Dr. Ember Teague pH (U) 5.5 [pH] Normal 5-9 [facility] Comment on above: Performed By: #### C VDTBH #### [facility] [address] [place] [address] Dr. Ember Teague RBC NONE SEEN Abnormal 0-2 [facility] Comment on above: Performed By: #### C VDTBH #### [facility] [address] [place] [address] Dr. Ember Teague SPEC GRAVITY 1.010 Normal 1.005-<=1.025 [facility] Comment on above: Performed By: #### C VDTBH #### [facility] [address] [place] [address] Dr. Ember Teague UA PROTEIN Negative Normal NEGATIVE/ TRACE [facility] Comment on above: Performed By: #### C VDTBH #### [facility] [address] [place] [address] Dr. Ember Teague Urobilinogen Qn (U) 0.2 {Esau'U}/dL Normal 0.2 - 1. 0 [facility] Comment on above: Performed By: #### C VDTBH #### [facility] [address] [place] [address] Dr. Ember Teague WBC NONE SEEN Normal NONE SEEN [facility] Comment on above: Performed By: #### C VDTBH #### [facility] [address] [place] [address] Dr. Ember Teague CBC AUTO DIFFon 08-13-2022 BASO # 0.0 103/ul Normal 0.0-0.1 [facility] Comment on above: Performed By: #### C BC #### [facility] [address] [address] [address] Ember Teague Basophils/100 WBC (Bld) 0.3 % Normal 0.2-2.0 [facility] Comment on above: Performed By: #### C BC #### [facility] [address] [place] [address] Dr. Ember Teague EO # 0.2 103/ul Normal 0.0-0.7 [facility] Comment on above: Performed By: #### C BC #### [facility] [address] [place] [address] Dr. Ember Teague Eosinophils/100 WBC (Bld) 3.7 % Normal 0.9-7.0 [facility] Comment on above: Performed By: #### C BC #### [facility] [address] [place] [address] Dr. Ember Teague Erythrocyte distribution width (RBC) [Ratio] 15.0 % Normal 11.0-15.0 [facility] Comment on above: Performed By: #### C BC #### [facility] [address] [place] [address] Dr. Ember Teague Hematocrit (Bld) [Volume fraction] 27.9 % Critically low 36.0-48.0 [facility] Comment on above: Performed By: #### C BC #### [facility] [address] [place] [address] Dr. Ember Teague Hemoglobin (Bld) [Mass/Vol] 9.7 g/dL Critically low 12.0-16.0 [facility] Comment on above: Performed By: #### C BC #### [facility] [address] [place] [address] Dr. Ember Teague IG # 0.01 10e3/ul Normal 0.00-0.03 [facility] Comment on above: Performed By: #### C BC #### [facility] [address] [place] [address] Dr. Ember Teague IG % 0.2 % Normal 0.0-0.5 [facility] Comment on above: Performed By: #### C BC #### [facility] [address] [place] [address] Dr. Ember Teague LYMPH # 1.9 103/ul Normal 1.2-3.8 [facility] Comment on above: Performed By: #### C BC #### [facility] [address] [place] [address] Dr. Ember Teague Lymphocytes/100 WBC (Bld) 32.2 % Normal 20.5-60.0 [facility] Comment on above: Performed By: #### C BC #### [facility] [address] [place] [address] Dr. Ember Teague MANUAL DIFF REQ NO Normal [facility] Comment on above: Performed By: #### C BC #### [facility] [address] [place] [address] Dr. Ember Teague MCH (RBC) [Entitic mass] 31.4 pg Normal 26.7-34.0 [facility] Comment on above: Performed By: #### C BC #### [facility] [address] [place] [address] Dr. Ember Teague MCHC (RBC) [Mass/Vol] 34.8 g/dL Normal 29.9-35.2 [facility] Comment on above: Performed By: #### C BC #### [facility] [address] [place] [address] Dr. Ember Teague MCV (RBC) [Entitic vol] 90.3 fL Normal 81.0-99.0 [facility] Comment on above: Performed By: #### C BC #### [facility] [address] [place] [address] Dr. Ember Teague MONO # 0.6 103/ul Normal 0.3-0.8 [facility] Comment on above: Performed By: #### C BC #### [facility] [address] [place] [address] Dr. Ember Teague Monocytes/100 WBC (Bld) 9.8 % Normal 1.7-12.0 [facility] Comment on above: Performed By: #### C BC #### [facility] [address] [place] [address] Dr. Ember Teague NEUT # 3.2 103/ul Normal 1.4-6.5 [facility] Comment on above: Performed By: #### C BC #### [facility] [address] [place] [address] Dr. Ember Teague Neutrophils/100 WBC (Bld) 53.8 % Normal 43.0-75.0 [facility] Comment on above: Performed By: #### C BC #### [facility] [address] [place] [address] Dr. Ember Teague Platelet mean volume (Bld) [Entitic vol] 10.0 fL Normal 9.5-13.5 [facility] Comment on above: Performed By: #### C BC #### [facility] [address] [place] [address] Dr. Ember Teague PLT 194 103/ul Normal 150-450 [facility] Comment on above: Performed By: #### C BC #### [facility] [address] [place] [address] Dr. Ember Teague RBC 3.09 106/ul Critically low 4.20-5.40 [facility] Comment on above: Performed By: #### C BC #### [facility] [address] [place] [address] Dr. Ember Teague WBC 6.0 103/ul Normal 4.0-11.0 [facility] Comment on above: Performed By: #### C BC #### [facility] [address] [place] [address] Dr. Ember Teague PTH INTACTon 06-26-2022 PTH, Intact 39 pg/mL Normal 15-65 [facility] Comment on above: Performed By: #### P THINT #### [facility] [address] [place] [address] Dr. Ember Teague CBC AUTO DIFFon 06-25-2022 BASO # 0.1 103/ul Normal 0.0-0.1 [facility] Comment on above: Performed By: #### C VDTBH #### [facility] [address] [place] [address] Dr. Ember Teague Basophils/100 WBC (Bld) 0.6 % Normal 0.2-2.0 [facility] Comment on above: Performed By: #### C VDTBH #### [facility] [address] [place] [address] Dr. Ember Teague EO # 0.2 103/ul Normal 0.0-0.7 [facility] Comment on above: Performed By: #### C VDTBH #### [facility] [address] [place] [address] Dr. Ember Teague Eosinophils/100 WBC (Bld) 3.0 % Normal 0.9-7.0 [facility] Comment on above: Performed By: #### C VDTBH #### [facility] [address] [place] [address] Dr. Ember Teague Erythrocyte distribution width (RBC) [Ratio] 14.2 % Normal 11.0-15.0 [facility] Comment on above: Performed By: #### C VDTBH #### [facility] [address] [place] [address] Dr. Ember Teague Hematocrit (Bld) [Volume fraction] 30.9 % Critically low 36.0-48.0 [facility] Comment on above: Performed By: #### C VDTBH #### [facility] [address] [place] [address] Dr. Ember Teague Hemoglobin (Bld) [Mass/Vol] 10.6 g/dL Critically low 12.0-16.0 [facility] Comment on above: Performed By: #### C VDTBH #### [facility] [address] [place] [address] Dr. Ember Teague IG # 0.04 10e3/ul Critically high 0.00-0.03 [facility] Comment on above: Performed By: #### C VDTBH #### [facility] [address] [place] [address] Dr. Ember Teague IG % 0.5 % Normal 0.0-0.5 [facility] Comment on above: Performed By: #### C VDTBH #### [facility] [address] [place] [address] Dr. Ember Teague LYMPH # 2.2 103/ul Normal 1.2-3.8 [facility] Comment on above: Performed By: #### C VDTBH #### [facility] [address] [place] [address] Dr. Ember Teague Lymphocytes/100 WBC (Bld) 27.0 % Normal 20.5-60.0 [facility] Comment on above: Performed By: #### C VDTBH #### [facility] [address] [place] [address] Dr. Ember Teague MANUAL DIFF REQ NO Normal [facility] Comment on above: Performed By: #### C VDTBH #### [facility] [address] [place] [address] Dr. Ember Teague MCH (RBC) [Entitic mass] 31.2 pg Normal 26.7-34.0 [facility] Comment on above: Performed By: #### C VDTBH #### [facility] [address] [place] [address] Dr. Ember Teague MCHC (RBC) [Mass/Vol] 34.3 g/dL Normal 29.9-35.2 [facility] Comment on above: Performed By: #### C VDTBH #### [facility] [address] [place] [address] Dr. Ember Teague MCV (RBC) [Entitic vol] 90.9 fL Normal 81.0-99.0 [facility] Comment on above: Performed By: #### C VDTBH #### [facility] [address] [place] [address] Dr. Ember Teague MONO # 0.7 103/ul Normal 0.3-0.8 [facility] Comment on above: Performed By: #### C VDTBH #### [facility] [address] [place] [address] Dr. Ember Teague Monocytes/100 WBC (Bld) 9.2 % Normal 1.7-12.0 [facility] Comment on above: Performed By: #### C VDTBH #### [facility] [address] [address] [address] Ember Teague NEUT # 4.8 103/ul Normal 1.4-6.5 [facility] Comment on above: Performed By: #### C VDTBH #### [facility] [address] [address] [address] Ember Teague Neutrophils/100 WBC (Bld) 59.7 % Normal 43.0-75.0 [facility] Comment on above: Performed By: #### C VDTBH #### [facility] [address] [address] [address] Ember Teague Platelet mean volume (Bld) [Entitic vol] 9.3 fL Critically low 9.5-13.5 [facility] Comment on above: Performed By: #### C VDTBH #### [facility] [address] [place] [address] Dr. Ember Teague PLT 227 103/ul Normal 150-450 [facility] Comment on above: Performed By: #### C VDTBH #### [facility] [address] [address] [address] Ember Teague RBC 3.40 106/ul Critically low 4.20-5.40 [facility] Comment on above: Performed By: #### C VDTBH #### [facility] [address] [place] [address] Dr. Ember Teague WBC 8.0 103/ul Normal 4.0-11.0 [facility] Comment on above: Performed By: #### C VDTBH #### [facility] [address] [place] [address] Dr. Ember Teague MRI LSPINE WO CONon [...] YANET HUERTA Date: 2022-06-25 08:45 Normal [facility] RENAL FUNCTION PANELon 06-25 Albumin [Mass/Vol] 3.9 g/dL Normal 3.4-5.0 [facility] Comment on above: Performed By: #### P THINT #### [facility] [address] [address] [address] Ember Teague Calcium [Mass/Vol] 9.5 mg/dL Normal 8.5-10.1 [facility] Comment on above: Performed By: #### P THINT #### [facility] [address] [address] [address] Ember Teague Chloride [Moles/Vol] 102 mmol/L Normal 98-107 [facility] Comment on above: Performed By: #### P THINT #### [facility] Laboratory [address] [address] [address] Ember Teague CO2 [Moles/Vol] 23.8 mmol/L Normal 21.0-32.0 [facility] Comment on above: Performed By: #### P THINT #### [facility] [address] [address] [address] Ember Teague Creatinine [Mass/Vol] 1.75 mg/dL Critically high 0.55-1.02 [facility] Comment on above: Performed By: #### P THINT #### [facility] [address] [address] [address] Ember Teague EGFR-AF [facility] 34 mL/min/1.73m2 Critically low >=60 [facility] Comment on above: Performed By: #### P THINT #### [facility] [address] [address] [address] Ember Teague EGFR-NON AF [facility] 28 mL/min/1.73m2 Critically low >=60 [facility] Comment on above: Performed By: #### P THINT #### [facility] [address] [address] [address] Ember Teague Glucose [Mass/Vol] 199 mg/dL Critically high 74-106 [facility] Comment on above: Performed By: #### P THINT #### [facility] [address] [address] [address] Ember Teague Phosphate [Mass/Vol] 4.3 mg/dL Normal 2.6-4.7 [facility] Comment on above: Performed By: #### P THINT #### [facility] [address] [address] [address] Ember Teague Potassium [Moles/Vol] 4.9 mmol/L Normal 3.5-5.1 [facility] Comment on above: Performed By: #### P THINT #### [facility] [address] [address] [address] Ember Teague Sodium [Moles/Vol] 135 mmol/L Critically low 136-[address] [facility] Comment on above: Performed By: #### P THINT #### [facility] [address] [address] [address] Ember Teague Urea nitrogen [Mass/Vol] 34.0 mg/dL Critically high 7.0-18.0 [facility] Comment on above: Performed By: #### P THINT #### [facility] [address] [place] [address] Dr. Ember Teague VITAMIN D 25 OHon 06-25-2022 VIT D 25-OH 40.6 ng/mL Normal [facility] Comment on above: Performed By: #### P THINT #### [facility] [address] [place] [address] Dr. Ember Teague VIT D RANGES SEE BELOW Normal [facility] Comment on above: Result Comment: <20 ng/mL Vit D deficient 20 - <30 ng/mL Vit D insufficient 30 - 100 ng/mL Vit D sufficient >100 ng/mL Potential Toxicity Performed By: #### P THINT #### [facility] [address] [place] [address] Dr. Ember Teague Covid-19 PCR (CVDTBH)on 06-07 SARS-CoV-2 (COVID-19) RNA ALEXX+probe Ql (Unsp spec) Not detected Normal NOT DETECTED [facility] Comment on above: Result Comment: This test is not yet approved or cleared by the [place] FDA. When there are no FDA-approved or cleared tests available, and other criteria are met, FDA can make tests available under an emergency access mechanism called an Emergency Use Authorization (EUA). The EUA for this test is supported by the [place] of Health and Human Service's (HHS's) declaration [...] SARS-CoV-2. Performed By: #### C VDTBH #### [facility] [address] [place] [address] LSPINE WO CONon [...] by: YANET HUERTA Date: 2022-06-01 18:02 Normal [facility] XR LSPINE MIN 4 VIEWSon 05-07 XR [...] YANET HUERTA Date: 2022-05-21 15:25 Normal [facility] PTH INTACTon 05-03-2022 PTH, Intact 60 pg/mL Normal 15-65 [facility] Comment on above: Performed By: #### C VDTBH #### [facility] [address] [address] [address] Ember Teague VIT D 25-OH LABCORPon 2021 Vitamin D, 25-Hydroxy 26.1 ng/mL Critically low 30.0-100.0 [facility] Comment on above: Result Comment: Sara min D deficiency has been defined by the [place] of [employer] and an Endocrine Society practice guideline as a level of serum 25-OH vitamin D less than 20 ng/mL (1,2). The Endocrine Society went on to further define vitamin D insufficiency as a level between 21 and 29 ng/mL (2). 1. IOM ([place] of [employer]). 2010. Dietary reference intakes for calcium and D. [place]: The National Academies Press. 2. Sherice MF, Wendy WILSON, Huan ZHONG, et al. Evaluation, treatment, and prevention of vitamin D deficiency: an Endocrine Society clinical practice guideline. JCEM. 2010; 96(7):1911-30. Performed By: #### R ENAL #### [facility] [address] [place] [address] Dr. Ember Teague FERRITINon 05-02-2022 Ferritin [Mass/Vol] 590.0 ng/mL Critically high 8.0-252.0 [facility] Comment on above: Performed By: #### R ENAL #### [facility] [address] [address] [address] Ember Teague HEMOGRAM AND PLATELon 2021 Hematocrit (Bld) [Volume fraction] 28.4 % Critically low 36.0-48.0 [facility] Comment on above: Performed By: #### C VDTBH #### [facility] [address] [address] [address] Ember Teague Hemoglobin (Bld) [Mass/Vol] 9.6 g/dL Critically low 12.0-16.0 [facility] Comment on above: Performed By: #### C VDTBH #### [facility] [address] [place] [address] Dr. Ember Teague MCH (RBC) [Entitic mass] 31.0 pg Normal 26.7-34.0 [facility] Comment on above: Performed By: #### C VDTBH #### [facility] [address] [place] [address] Dr. Ember Teague MCHC (RBC) [Mass/Vol] 33.8 g/dL Normal 29.9-35.2 [facility] Comment on above: Performed By: #### C VDTBH #### [facility] [address] [place] [address] Dr. Ember Teague MCV (RBC) [Entitic vol] 91.6 fL Normal 81.0-99.0 [facility] Comment on above: Performed By: #### C VDTBH #### [facility] [address] [place] [address] Dr. Ember Teague PLT 189 103/ul Normal 150-450 [facility] Comment on above: Performed By: #### C VDTBH #### [facility] [address] [place] [address] Dr. Ember Teague RBC 3.10 106/ul Critically low 4.20-5.40 [facility] Comment on above: Performed By: #### C VDTBH #### [facility] [address] [place] [address] Dr. Ember Teague WBC 6.2 103/ul Normal 4.0-11.0 [facility] Comment on above: Performed By: #### C VDTBH #### [facility] [address] [place] [address] Dr. Ember Teague IRON AND TIBCon 05-02-2022 % SATURATION 34.3 % Normal [facility] Comment on above: Performed By: #### R ENAL #### [facility] [address] [place] [address] Dr. Ember Teague Iron [Mass/Vol] 69.0 ug/dL Normal 50.0-170.0 [facility] Comment on above: Performed By: #### R ENAL #### [facility] [address] [place] [address] Dr. Ember Teague TIBC DIRECT 201.0 ug/dL Critically low 250.0-450.0 [facility] Comment on above: Performed By: #### R ENAL #### [facility] [address] [place] [address] Dr. Ember Teague MAGNESIUMon 05-02-2022 Magnesium [Mass/Vol] 1.7 mg/dL Critically low 1.8-2.4 [facility] Comment on above: Performed By: #### C VDTBH #### [facility] [address] [place] [address] Dr. Ember Teague RENAL FUNCTION PANELon 05-02 Albumin [Mass/Vol] 3.6 g/dL Normal 3.4-5.0 [facility] Comment on above: Performed By: #### C VDTBH #### [facility] [address] [place] [address] Dr. Ember Teague Calcium [Mass/Vol] 9.2 mg/dL Normal 8.5-10.1 [facility] Comment on above: Performed By: #### C VDTBH #### [facility] [address] [place] [address] Dr. Ember Teague Chloride [Moles/Vol] 107 mmol/L Normal 98-107 [facility] Comment on above: Performed By: #### C VDTBH #### [facility] [address] [place] [address] Dr. Ember Teague CO2 [Moles/Vol] 21.2 mmol/L Normal 21.0-32.0 [facility] Comment on above: Performed By: #### C VDTBH #### [facility] [address] [place] [address] Dr. Ember Teague Creatinine [Mass/Vol] 1.75 mg/dL Critically high 0.55-1.02 [facility] Comment on above: Performed By: #### C VDTBH #### [facility] [address] [address] [address] Ember Teague EGFR-AF [facility] 34 mL/min/1.73m2 Critically low >=60 [facility] Comment on above: Performed By: #### C VDTBH #### [facility] [address] [address] [address] Ember Teague EGFR-NON AF [facility] 28 mL/min/1.73m2 Critically low >=60 [facility] Comment on above: Performed By: #### C VDTBH #### [facility] [address] [address] [address] Ember Teague Glucose [Mass/Vol] 193 mg/dL Critically high 74-106 [facility] Comment on above: Performed By: #### C VDTBH #### [facility] [address] [address] [address] Ember Teague Phosphate [Mass/Vol] 4.2 mg/dL Normal 2.6-4.7 [facility] Comment on above: Performed By: #### C VDTBH #### [facility] [address] [address] [address] Ember Teague Potassium [Moles/Vol] 5.1 mmol/L Normal 3.5-5.1 [facility] Comment on above: Performed By: #### C VDTBH #### [facility] [address] [address] [address] Ember Teague Sodium [Moles/Vol] 139 mmol/L Normal 136-145 [facility] Comment on above: Performed By: #### C VDTBH #### [facility] [address] [address] [address] Ember Teague Urea nitrogen [Mass/Vol] 34.0 mg/dL Critically high 7.0-18.0 [facility] Comment on above: Performed By: #### C VDTBH #### [facility] [address] [address] [address] Ember Teague UA RANDOM W/MICROSCOPICon BACTERIA SMALL Abnormal NONE SEEN [facility] Comment on above: Performed By: #### C VDTBH #### [facility] [address] [place] [address] Dr. Ember Teague Bilirubin Ql (U) Negative Normal NEGATIVE [facility] Comment on above: Performed By: #### C VDTBH #### [facility] [address] [address] [address] Ember Teague CAST NONE SEEN Normal NONE SEEN [facility] Comment on above: Performed By: #### C VDTBH #### [facility] [address] [place] [address] Dr. Ember Teague Clarity (U) CLEAR Normal CLEAR [facility] Comment on above: Performed By: #### C VDTBH #### [facility] [address] [place] [address] Dr. Ember Teague Color (U) LT. YELLOW Normal YELLOW [facility] Comment on above: Performed By: #### C VDTBH #### [facility] [address] [place] [address] Dr. Ember Teague Crystals LM Nom (Urine sed) NONE SEEN Normal NONE SEEN [facility] Comment on above: Performed By: #### C VDTBH #### [facility] [address] [place] [address] Dr. Ember Teague Epithelial cells LM Ql (Urine sed) MODERATE Abnormal NONE SEEN /RARE [facility] Comment on above: Performed By: #### C VDTBH #### [facility] [address] [place] [address] Dr. Ember Teague Glucose Ql (U) Negative Normal NEGATIVE The [facility] Comment on above: Performed By: #### C VDTBH #### [facility] [address] [place] [address] Dr. Ember Teague Hemoglobin Ql (U) Negative Normal NEGATIVE [facility] Comment on above: Performed By: #### C VDTBH #### [facility] [address] [place] [address] Dr. Ember Teague Ketones Ql (U) Negative Normal NEGATIVE The [facility] Comment on above: Performed By: #### C VDTBH #### [facility] [address] [place] [address] Dr. Ember Teague LEUKOCYTES TRACE Abnormal NEGATIVE [facility] Comment on above: Performed By: #### C VDTBH #### [facility] [address] [place] [address] Dr. Ember Teague MUCOUS NONE SEEN Normal NONE SEEN [facility] Comment on above: Performed By: #### C VDTBH #### [facility] [address] [place] [address] Dr. Ember Teague Nitrite Ql (U) Negative Normal NEGATIVE The [facility] Comment on above: Performed By: #### C VDTBH #### [facility] [address] [place] [address] Dr. Ember Teague pH (U) 5.0 [pH] Normal 5-9 [facility] Comment on above: Performed By: #### C VDTBH #### [facility] [address] [place] [address] Dr. Ember Teague RBC NONE SEEN Abnormal 0-2 [facility] Comment on above: Performed By: #### C VDTBH #### [facility] [address] [place] [address] Dr. Ember Teague SPEC GRAVITY 1.015 Normal 1.005-<=1.025 [facility] Comment on above: Performed By: #### C VDTBH #### [facility] [address] [place] [address] Dr. Ember Teague UA PROTEIN TRACE Normal NEGATIVE/ TRACE [facility] Comment on above: Performed By: #### C VDTBH #### [facility] [address] [place] [address] Dr. Ember Teague Urobilinogen Qn (U) 0.2 {Esau'U}/dL Normal 0.2 - 1. 0 [facility] Comment on above: Performed By: #### C VDTBH #### [facility] [address] [place] [address] Dr. Ember Teague WBC 0-2 Abnormal NONE SEEN [facility] Comment on above: Performed By: #### C VDTBH #### [facility] [address] [place] [address] Dr. Ember Teague URIC ACID SERUMon 05-02-2022 Urate [Mass/Vol] 4.4 mg/dL Normal 2.6-6.0 [facility] Comment on above: Performed By: #### C BC #### [facility] [address] [place] [address] Dr. Ember Teague URINE T PROTEIN CREAT RATIOo n 05-02-2022 Protein (U) [Mass/Vol] 33.7 mg/dL Critically high <=12.0 [facility] Comment on above: Performed By: #### C VDTBH #### [facility] [address] [place] [address] Dr. Ember Teague UR PROT CREAT RAT 0.69 Normal [facility] Comment on above: Performed By: #### C VDTBH #### [facility] [address] [place] [address] Dr. Ember Teague URINE CREAT 48.93 mg/dL Normal 20.00-300.00 [facility] Comment on above: Performed By: #### C VDTBH #### [facility] [address] [place] [address] Dr. Ember Teague Vital Signs Date Time Vital Sign Value Performing Clinician Facility 11-18-2023 10:00-0500 Body height 168.91 cm Ron Doreen Other [email or web address] Other 11-18-2023 10:00-0500 Body mass index (BMI) [Ratio] 29.85 kg/m2 Ron Doreen Other [facility] Other 11-18-2023 10:00-0500 Body temperature 97.3 [degF] Ron Doreen Other [facility] Other 11-18-2023 10:00-0500 Body weight 85.19 kg Ron Doreen Other [facility] Other 11-18-2023 10:00-0500 Diastolic blood pressure 79 mm[Hg] Ron Doreen Other [facility] Other 11-18-2023 10:00-0500 Respiratory rate 18 /min Ron Doreen Other [facility] Other 11-18-2023 10:00-0500 SaO2% (BldA) [Mass fraction] 98 % Ron Doreen Other [facility] Other 11-18-2023 10:00-0500 Systolic blood pressure 149 mm[Hg] Ron Doreen Other [facility] Other 11-04-2023 11:00-0500 Body height 168.91 cm Ron Doreen Other [facility] Other 11-04-2023 11:00-0500 Body mass index (BMI) [Ratio] 30.17 kg/m2 Ron Doreen Other [facility] Other 11-04-2023 11:00-0500 Body temperature 97.6 [degF] Ron Doreen Other [facility] Other 11-04-2023 11:00-0500 Body weight 86.09 kg Ron Doreen Other [facility] Other 11-04-2023 11:00-0500 Diastolic blood pressure 76 mm[Hg] Ron Doreen Other [facility] Other 11-04-2023 11:00-0500 Respiratory rate 18 /min Ron Doreen Other [facility] Other 11-04-2023 11:00-0500 SaO2% (BldA) [Mass fraction] 98 % Ron Doreen Other [facility] Other 11-04-2023 11:00-0500 Systolic blood pressure 153 mm[Hg] Ron Doreen Other [facility] Other 10-15-2023 13:00-0500 Body height 168.91 cm Ron Doreen Other [facility] Other 10-15-2023 13:00-0500 Body mass index (BMI) [Ratio] 29.82 kg/m2 Ron Doreen Other [facility] Other 10-15-2023 13:00-0500 Body temperature 97.5 [degF] Ron Doreen Other [facility] Other 10-15-2023 13:00-0500 Body weight 85.1 kg Ron Doreen Other [facility] Other 10-15-2023 13:00-0500 Diastolic blood pressure 68 mm[Hg] Ron Doreen Other [facility] Other 10-15-2023 13:00-0500 Respiratory rate 18 /min Ron Doreen Other [facility] Other 10-15-2023 13:00-0500 SaO2% (BldA) [Mass fraction] 98 % Ron Doreen Other [facility] Other 10-15-2023 13:00-0500 Systolic blood pressure 113 mm[Hg] Ron Doreen Other [facility] Other 08-27-2023 09:40-0500 Body height 168.91 cm Aziz Bakhous Other [facility] Other 08-27-2023 09:40-0500 Body mass index (BMI) [Ratio] 30.2 kg/m2 Aziz Bakhous Other [facility] Other 08-27-2023 09:40-0500 Body temperature 96.7 [degF] Aziz Bakhous Other [facility] Other 08-27-2023 09:40-0500 Body weight 86.18 kg Aziz Bakhous Other [facility] Other 08-27-2023 09:40-0500 Diastolic blood pressure 72 mm[Hg] Aziz Bakhous Other [facility] Other 08-27-2023 09:40-0500 Respiratory rate 18 /min Azduc Bakhous Other [facility] Other 08-27-2023 09:40-0500 SaO2% (BldA) [Mass fraction] 98 % Aziz Bakhous Other [facility] Other 08-27-2023 09:40-0500 Systolic blood pressure 153 mm[Hg] Aziz Bakhous Other [facility] Other 08-15-2023 10:20-0500 Body height 168.91 cm Ron Doreen Other [facility] Other 08-15-2023 10:20-0500 Body mass index (BMI) [Ratio] 30.2 kg/m2 Ron Doreen Other [facility] Other 08-15-2023 10:20-0500 Body temperature 97.1 [degF] Ron Doreen Other [facility] Other 08-15-2023 10:20-0500 Body weight 86.18 kg Ron Doreen Other [facility] Other 08-15-2023 10:20-0500 Diastolic blood pressure 79 mm[Hg] Ron Doreen Other [facility] Other 08-15-2023 10:20-0500 Respiratory rate 18 /min Ron Doreen Other [facility] Other 08-15-2023 10:20-0500 SaO2% (BldA) [Mass fraction] 98 % Ron Doreen Other [facility] Other 08-15-2023 10:20-0500 Systolic blood pressure 164 mm[Hg] Ron Doreen Other [facility] Other 08-13-2023 15:40-0500 Body height 168.91 cm Ron Doreen Other [facility] Other 08-13-2023 15:40-0500 Body mass index (BMI) [Ratio] 30.24 kg/m2 Ron Doreen Other [facility] Other 08-13-2023 15:40-0500 Body temperature 97.2 [degF] Ron Doreen Other [facility] Other 08-13-2023 15:40-0500 Body weight 86.27 kg Ron Doreen Other [facility] Other 08-13-2023 15:40-0500 Diastolic blood pressure 79 mm[Hg] Ron Doreen Other [facility] Other 08-13-2023 15:40-0500 Respiratory rate 18 /min Ron Doreen Other [facility] Other 08-13-2023 15:40-0500 SaO2% (BldA) [Mass fraction] 98 % Ron Doreen Other [facility] Other 08-13-2023 15:40-0500 Systolic blood pressure 186 mm[Hg] Ron Doreen Other [facility] Other 08-01-2023 13:00-0400 Body height 168.91 cm Ron Doreen Other [facility] Other 08-01-2023 13:00-0400 Body mass index (BMI) [Ratio] 30.55 kg/m2 Ron Doreen Other [facility] Other 08-01-2023 13:00-0400 Body temperature 97.8 [degF] Ron Doreen Other [facility] Other 08-01-2023 13:00-0400 Body weight 87.18 kg Ron Doreen Other [facility] Other 08-01-2023 13:00-0400 Diastolic blood pressure 72 mm[Hg] Ron Doreen Other [facility] Other 08-01-2023 13:00-0400 Respiratory rate 18 /min Ron Doreen Other [facility] Other 08-01-2023 13:00-0400 SaO2% (BldA) [Mass fraction] 98 % Ron Doreen Other [facility] Other 08-01-2023 13:00-0400 Systolic blood pressure 160 mm[Hg] Ron Doreen Other [facility] Other 06-24-2023 11:40-0400 Body height 168.91 cm Ron Doreen Other [facility] Other 06-24-2023 11:40-0400 Body mass index (BMI) [Ratio] 29.89 kg/m2 Ron Doreen Other [facility] Other 06-24-2023 11:40-0400 Body temperature 97.3 [degF] Ron Doreen Other [facility] Other 06-24-2023 11:40-0400 Body weight 85.28 kg Ron Doreen Other [facility] Other 06-24-2023 11:40-0400 Diastolic blood pressure 75 mm[Hg] Ron Doreen Other [facility] Other 06-24-2023 11:40-0400 Respiratory rate 18 /min Ron Doreen Other [facility] Other 06-24-2023 11:40-0400 SaO2% (BldA) [Mass fraction] 99 % Ron Doreen Other [facility] Other 06-24-2023 11:40-0400 Systolic blood pressure 129 mm[Hg] Ron Doreen Other [facility] Other 06-06-2023 15:20-0400 Body height 168.91 cm Ron Doreen Other [facility] Other 06-06-2023 15:20-0400 Body mass index (BMI) [Ratio] 29.92 kg/m2 Ron Doreen Other [facility] Other 06-06-2023 15:20-0400 Body temperature 96.5 [degF] Ron Doreen Other [facility] Other 06-06-2023 15:20-0400 Body weight 85.37 kg Ron Doreen Other [facility] Other 06-06-2023 15:20-0400 Diastolic blood pressure 49 mm[Hg] Ron Doreen Other [facility] Other 06-06-2023 15:20-0400 Respiratory rate 18 /min Ron Doreen Other [facility] Other 06-06-2023 15:20-0400 SaO2% (BldA) [Mass fraction] 99 % Ron Doreen Other [facility] Other 06-06-2023 15:20-0400 Systolic blood pressure 128 mm[Hg] Ron Doreen Other [facility] Other 04-30-2023 11:40-0400 Body height 168.91 cm Ron Doreen Other [facility] Other 04-30-2023 11:40-0400 Body mass index (BMI) [Ratio] 30.52 kg/m2 Ron Doreen Other [facility] Other 04-30-2023 11:40-0400 Body temperature 96.9 [degF] Ron Doreen Other [facility] Other 04-30-2023 11:40-0400 Body weight 87.09 kg Ron Doreen Other [facility] Other 04-30-2023 11:40-0400 Diastolic blood pressure 80 mm[Hg] Ron Doreen Other [facility] Other 04-30-2023 11:40-0400 Respiratory rate 18 /min Ron Doreen Other [facility] Other 04-30-2023 11:40-0400 SaO2% (BldA) [Mass fraction] 98 % Ron Doreen Other [facility] Other 04-30-2023 11:40-0400 Systolic blood pressure 150 mm[Hg] Ron Doreen Other [facility] Other 04-06-2023 09:00-0400 Body height 168.91 cm Ron Doreen Other [facility] Other 04-06-2023 09:00-0400 Body mass index (BMI) [Ratio] 30.36 kg/m2 Ron Doreen Other [facility] Other 04-06-2023 09:00-0400 Body weight 86.64 kg Ron Doreen Other [facility] Other 04-06-2023 09:00-0400 Diastolic blood pressure 54 mm[Hg] Ron Doreen Other [facility] Other 04-06-2023 09:00-0400 Respiratory rate 18 /min Ron Doreen Other [facility] Other 04-06-2023 09:00-0400 SaO2% (BldA) [Mass fraction] 98 % Ron Doreen Other [facility] Other 04-06-2023 09:00-0400 Systolic blood pressure 144 mm[Hg] Ron Doreen Other [facility] Other 04-02-2023 14:40-0400 Body height 168.91 cm Ron Doreen Other [facility] Other 04-02-2023 14:40-0400 Body mass index (BMI) [Ratio] 30.55 kg/m2 Ron Doreen Other [facility] Other 04-02-2023 14:40-0400 Body temperature 97 [degF] Ron Doreen Other [facility] Other 04-02-2023 14:40-0400 Body weight 87.18 kg Ron Doreen Other [facility] Other 04-02-2023 14:40-0400 Diastolic blood pressure 76 mm[Hg] Ron Doreen Other [facility] Other 04-02-2023 14:40-0400 Respiratory rate 18 /min Ron Doreen Other [facility] Other 04-02-2023 14:40-0400 SaO2% (BldA) [Mass fraction] 98 % Ron Doreen Other [facility] Other 04-02-2023 14:40-0400 Systolic blood pressure 183 mm[Hg] Ron Doreen Other [facility] Other 03-07-2023 09:20-0400 Body height 168.91 cm Ron Doreen Other [facility] Other 03-07-2023 09:20-0400 Body mass index (BMI) [Ratio] 30.52 kg/m2 Ron Doreen Other [facility] Other 03-07-2023 09:20-0400 Body temperature 97.1 [degF] Ron Doreen Other [facility] Other 03-07-2023 09:20-0400 Body weight 87.09 kg Ron Doreen Other [facility] Other 03-07-2023 09:20-0400 Diastolic blood pressure 72 mm[Hg] Ron Doreen Other [facility] Other 03-07-2023 09:20-0400 Respiratory rate 18 /min Ron Doreen Other [facility] Other 03-07-2023 09:20-0400 SaO2% (BldA) [Mass fraction] 97 % Ron Doreen Other [facility] Other 03-07-2023 09:20-0400 Systolic blood pressure 130 mm[Hg] Ron Doreen Other [facility] 12-20-2022 13:20-0400 Body height 168.91 cm Ron Doreen Other [facility] 12-20-2022 13:20-0400 Body mass index (BMI) [Ratio] 30.68 kg/m2 Ron Doreen Other [facility] 12-20-2022 13:20-0400 Body temperature 97.1 [degF] Ron Doreen Other [facility] 12-20-2022 13:20-0400 Body weight 87.54 kg Ron Doreen Other [facility] 12-20-2022 13:20-0400 Diastolic blood pressure 72 mm[Hg] Ron Doreen Other [facility] 12-20-2022 13:20-0400 Respiratory rate 18 /min Ron Doreen Other [facility] 12-20-2022 13:20-0400 SaO2% (BldA) [Mass fraction] 99 % Ron Doreen Other [facility] 12-20-2022 13:20-0400 Systolic blood pressure 139 mm[Hg] Ron Doreen Other [facility] 11-05-2022 14:00-0500 Body height 168.91 cm Ron Doreen Other [facility] 11-05-2022 14:00-0500 Body mass index (BMI) [Ratio] 30.59 kg/m2 Ron Doreen Other [facility] 11-05-2022 14:00-0500 Body temperature 96.8 [degF] Ron Doreen Other [facility] 11-05-2022 14:00-0500 Body weight 87.27 kg Ron Doreen Other [facility] Other 11-05-2022 14:00-0500 Diastolic blood pressure 72 mm[Hg] Ron Doreen Other [facility] 11-05-2022 14:00-0500 Respiratory rate 18 /min Ron Doreen Other [facility] Other 11-05-2022 14:00-0500 SaO2% (BldA) [Mass fraction] 98 % Ron Doreen Other [facility] 11-05-2022 14:00-0500 Systolic blood pressure 157 mm[Hg] Ron Doreen Other [facility] 09-27-2022 16:00-0500 Body height 168.91 cm Jana Monson Other [facility] Other 09-27-2022 16:00-0500 Body mass index (BMI) [Ratio] 30.55 kg/m2 Jana Monson Other [facility] Other 09-27-2022 16:00-0500 Body temperature 96.8 [degF] Jana Monson Other [facility] Other 09-27-2022 16:00-0500 Body weight 87.18 kg Jana Monson Other [facility] Other 09-27-2022 16:00-0500 Diastolic blood pressure 73 mm[Hg] Jana Monson Other [facility] Other 09-27-2022 16:00-0500 Respiratory rate 18 /min Jana Monson Other [facility] Other 09-27-2022 16:00-0500 SaO2% (BldA) [Mass fraction] 98 % Jana Monson Other [facility] Other 09-27-2022 16:00-0500 Systolic blood pressure 159 mm[Hg] Jana Monson Other [facility] Other 08-22-2022 12:00-0500 Body height 168.91 cm Ron Doreen Other [facility] Other 08-22-2022 12:00-0500 Body mass index (BMI) [Ratio] 30.65 kg/m2 Ron Doreen Other [facility] 08-22-2022 12:00-0500 Body temperature 96.9 [degF] Ron Doreen Other [facility] Other 08-22-2022 12:00-0500 Body weight 87.45 kg Ron Doreen Other [facility] Other 08-22-2022 12:00-0500 Diastolic blood pressure 75 mm[Hg] Ron Doreen Other [facility] 08-22-2022 12:00-0500 Respiratory rate 18 /min Ron Doreen Other [facility] Other 08-22-2022 12:00-0500 SaO2% (BldA) [Mass fraction] 96 % Ron Doreen Other [facility] Other 08-22-2022 12:00-0500 Systolic blood pressure 121 mm[Hg] Ron Doreen Other [facility] Other 05-08-2022 10:20-0400 Body height 168.91 cm Ron Doreen Other [facility] Other 05-08-2022 10:20-0400 Body mass index (BMI) [Ratio] 31.54 kg/m2 Ron Doreen Other [facility] Other 05-08-2022 10:20-0400 Body temperature 97.6 [degF] Ron Doreen Other [facility] Other 05-08-2022 10:20-0400 Body weight 89.99 kg Ron Doreen Other [facility] Other 08-02-2022 10:20-0400 Diastolic blood pressure 68 mm[Hg] Ron Doreen Other [facility] Other 05-08-2022 10:20-0400 Respiratory rate 18 /min Ron Doreen Other [facility] Other 05-08-2022 10:20-0400 SaO2% (BldA) [Mass fraction] 98 % Ron Doreen Other [facility] Other 05-08-2022 10:20-0400 Systolic blood pressure 131 mm[Hg] Ron Doreen Other [facility] Other 01-18-2022 10:20-0400 Body height 168.91 cm Ron Doreen Other [facility] Other 01-18-2022 10:20-0400 Body mass index (BMI) [Ratio] 31 kg/m2 Ron Doreen Other [facility] Other 01-18-2022 10:20-0400 Body temperature 96.4 [degF] Ron Doreen Other [facility] Other 01-18-2022 10:20-0400 Body weight 88.45 kg Ron Doreen Other [facility] Other 01-18-2022 10:20-0400 Diastolic blood pressure 74 mm[Hg] Ron Doreen Other [facility] Other 01-18-2022 10:20-0400 Respiratory rate 18 /min Ron Doreen Other [facility] Other 01-18-2022 10:20-0400 SaO2% (BldA) [Mass fraction] 97 % Ron Doreen Other [facility] Other 01-18-2022 10:20-0400 Systolic blood pressure 170 mm[Hg] Ron Doreen Other [facility] Other Encounters Encounter Date Encounter Type Care Provider Facility Start: 05-25-2024 End: 05-25-2024 ambulatory GREG A PETITTI Not Available Start: 05-11-2024 End: 05-11-2024 ambulatory [facility] Start: 04-21-2024 End: 04-21-2024 ambulatory GREG A PETITTI Not Available Start: 04-16-2024 End: 04-16-2024 ambulatory GA CRESPO Not Available Start: 03-16-2024 End: 03-16-2024 ambulatory GREG A PETITTI Not Available Start: 02-10-2024 End: 02-10-2024 ambulatory [facility] Start: 01-17-2024 End: 01-17-2024 ambulatory [facility] Start: 01-16-2024 End: 01-16-2024 ambulatory GA CRESPO Not Available Start: 12-21-2023 Refill Luis dominique PA-C Work Phone: [facility] Comment on above: Med Refill Start: 11-28-2023 End: 11-28-2023 ambulatory GREG A PETITTI Not Available Start: 11-18-2023 End: 11-18-2023 ambulatory Ron Doreen Other [facility] Other Start: 11-18-2023 Office outpatient visit 15 minutes Ron Doreen [facility] Start: 11-05-2023 End: 11-05-2023 ambulatory GA CRESPO Not Available Start: 11-04-2023 (INJECTION) INJECTION Ron Doreen [facility] Start: 11-04-2023 End: 11-04-2023 ambulatory Ron Doreen Other [facility] Start: 10-22-2023 End: 10-22-2023 ambulatory GA CRESPO Not Available Start: 10-15-2023 End: 10-15-2023 ambulatory Ron Doreen Other [facility] Start: 10-15-2023 Office outpatient visit 15 minutes Ron Doreen [facility] Start: 10-08-2023 End: 10-08-2023 ambulatory Aziz Bakhous Other [facility] Other Start: 10-08-2023 Telephone encounter Aziz Bakhous [facility] Start: 09-15-2023 End: 09-15-2023 ambulatory Ron Doreen Other [facility] Other Start: 09-15-2023 Telephone encounter Ron Doreen [facility] Start: 09-09-2023 End: 09-09-2023 ambulatory Ron Doreen Other [facility] Other Start: 09-09-2023 Telephone encounter Ron Doreen [facility] Start: 08-27-2023 (INJECTION) INJECTION Aziz Bakhous [facility] Start: 08-27-2023 End: 08-27-2023 ambulatory Aziz Bakhous Other [facility] Start: 08-15-2023 (INJECTION) INJECTION Ron Doreen [facility] Start: 08-15-2023 End: 08-15-2023 ambulatory Ron Doreen Other [facility] Start: 08-13-2023 (INJECTION) INJECTION Ron Doreen [facility] Start: 08-13-2023 End: 08-13-2023 ambulatory Ron Doreen Other [facility] Start: 08-01-2023 End: 08-01-2023 ambulatory Ron Doreen Other [facility] Start: 08-01-2023 Office outpatient visit 15 minutes Ron Doreen [facility] Start: 06-24-2023 End: 06-24-2023 ambulatory Ron Doreen Other [facility] Start: 06-24-2023 Office outpatient visit 10 minutes Ron Doreen [facility] Start: 06-06-2023 End: 06-06-2023 ambulatory Ron Doreen Other [facility] Start: 06-06-2023 Office outpatient visit 15 minutes Ron Doreen [facility]iel Start: 04-30-2023 End: 04-30-2023 ambulatory Ron Doreen Other [facility] Other Start: 04-30-2023 Office outpatient visit 15 minutes Ron Doreen [facility] Start: 04-06-2023 (INJECTION) INJECTION Ron D[facility]en [facility] Start: 04-06-2023 End: 04-06-2023 ambulatory Ron Doreen Other [facility] Start: 04-06-2023 Telephone encounter Ron Doreen [facility] Start: 04-02-2023 End: 04-02-2023 ambulatory Ron Doreen Other [facility] Other Start: 04-02-2023 Office outpatient visit 15 minutes Ron Doreen [facility] Start: 04-02-2023 Telephone encounter Ron Doreen [facility] Start: 03-07-2023 End: 03-07-2023 ambulatory Ron Doreen Other [facility] Start: 03-07-2023 Office outpatient visit 15 minutes Ron Doreen [facility] Start: 01-22-2023 End: 01-23-2023 ambulatory RON DOREEN Facility:[facility] Start: 12-20-2022 End: 12-20-2022 ambulatory Ron Doreen Other [facility] Start: 12-20-2022 Office outpatient visit 15 minutes Ron Doreen [facility] Start: 12-17-2022 End: 12-18-[address] DHRUV RUBI . Facility:[facility] Start: 12-10-2022 End: 12-11-2022 ambulatory RON DOREEN Facility:[facility] Start: 11-20-2022 End: 11-21-[address] BENI APARICIO Facility:[facility] Start: 11-05-2022 End: 11-05-2022 ambulatory Ron Doreen Other [facility] Other Start: 11-05-2022 Office outpatient visit 15 minutes Ron Doreen [facility] Start: 10-29-2022 End: 10-30-[address] JANA MONSON Facility:[facility] Start: 10-24-2022 End: 10-24-[address] LILLIAN ACOSTA . Facility:[facility] Start: 10-24-2022 End: 10-25-[address] DHRUV RUBI . Facility:[facility] Start: 09-27-2022 End: 09-27-2022 ambulatory Jana Monson Other [facility] Other Start: 09-27-2022 Office outpatient visit 15 minutes Jana Monson [facility] Start: 09-18-2022 End: 09-19-2022 ambulatory RON DOREEN Facility:[facility] Start: 09-11-2022 End: 09-11-[address] DHRUV RUBI . Facility:[facility] Start: 08-22-2022 End: 08-22-2022 ambulatory Ron Doreen Other [facility] Other Start: 08-22-2022 Office outpatient visit 15 minutes Rno Doreen [facility] Start: 08-13-2022 End: 08-14-2022 ambulatory RON DOREEN Facility:[facility] Start: 06-25-2022 End: 06-26-[address] DHRUV RUBI . Facility:[facility] Start: 06-18-2022 End: 06-18-[address] DHRUV RUBI . Facility:[facility] Start: 06-01-2022 End: 06-02-[address] YANET HUERTA Facility:[facility] Start: 05-28-2022 End: 05-28-2022 ambulatory Ron Doreen Other [facility] Other Start: 05-28-2022 Telephone encounter Ron Doreen [facility] Start: 05-21-2022 End: 05-22-[address] DHRUV RUBI . Facility:[facility] Start: 05-16-2022 End: 05-16-2022 ambulatory Ron Doreen Other [facility] Other Start: 05-16-2022 Telephone encounter Ron Doreen [facility] Start: 05-10-2022 End: 05-10-2022 ambulatory Ron Doreen Other [facility] Other Start: 05-10-2022 Telephone encounter Ron Doreen [facility] Start: 05-08-2022 End: 05-08-2022 ambulatory Ron Doreen Other [facility] Other Start: 05-08-2022 Office outpatient visit 25 minutes Ron Doreen [facility] Start: 05-02-2022 End: 05-03-2022 ambulatory RON DOREEN Facility: Start: 04-24-2022 End: 04-24-2022 ambulatory Mary Anne Ackerman Other [facility] Other Start: 04-24-2022 Telephone encounter Mary Anne Ackerman [facility] Start: 01-18-2022 End: 01-18-2022 ambulatory Ron Doreen Other [facility] Other Start: 01-18-2022 Office outpatient visit 25 minutes Ron Doreen [facility] Start: 05-21-2017 End: 05-22-2017 Ambulatory DEFAULT PHYSICIAN Facility:[facility] Procedures Date Procedure Procedure Detail Performing [...] 03-19-2024 Adult BMI Screening Adult BMI Screening [facility] Start: 03-19-2024 Tobacco Screening Tobacco Screening [facility] Start: 06-07-2023 COVID-19 Vaccine ( season) COVID-19 Vaccine ( season) [facility] Start: 06-07-2023 Influenza vaccination Influenza Vaccine [facility] Start: 12-28-2021 Depression Screening Depression Screening [facility] Start: 2009 Fall Risk Screening Fall Risk Screening [facility] Start: 1994 Administration of varicella zoster vaccine Zoster (Shingles) Vaccine (1 of 2) [facility] Start: 12-15-1963 DTaP,Tdap and Td Vaccines (1 - Tdap) DTaP,Tdap and Td Vaccines (1 - Tdap) [facility] Start: 1962 Adult BMI Follow Up Plan Adult BMI Follow Up Plan [facility] Start: 1944 Medicare Annual Wellness Visit Medicare Annual Wellness Visit [facility] Immunizations Immunization Date Immunization Notes Care Provider Lai montemayor 07-18-2020 Seasonal trivalent influenza vaccine, adjuvanted, preservative free Luis Kb PA-C Work Phone: [facility] 07-18-2020 influenza virus vacc ine, unspecified formulation Luis Kb PA-C Work Phone: [facility] 07-22-2019 Seasonal trivalent influenza vaccine, adjuvanted, preservative free Luis Kb PA-C Work Phone: [facility] 07-14-2018 Seasonal trivalent influenza vaccine, adjuvanted, preservative free Luis Kb PA-C Work Phone: [facility] 07-15-2017 pneumococcal conjuga te vaccine, 13 valent Luis Kb PA-C Work Phone: [facility] 07-08-2017 influenza, high dose seasonal, preservative-free Luis Kb PA-C Work Phone: [facility] 07-25-2016 influenza, high dose seasonal, preservative-free Luis Kb PA-C Work Phone: [facility] 07-11-2015 influenza, high dose seasonal, preservative-free Luis Kb PA-C Work Phone: [facility] 07-16-2014 influenza, seasonal, injectable Luis Kb PA-C Work Phone: [facility] 07-10-2013 influenza, seasonal, injectable Luis Kb PA-C Work Phone: [facility] 08-08-2012 influenza virus vacc ine, unspecified formulation Luis Kb PA-C Work Phone: [facility] 08-08-2012 pneumococcal polysaccharide vaccine, 23 valent Luis Kb PA-C Work Phone: [facility] 07-11-2011 influenza virus vacc ine, unspecified formulation Luis Kb PA-C Work Phone: [facility] 08-15-2010 influenza virus vacc ine, unspecified formulation Luis Kb PA-C Work Phone: [facility] 07-26-2009 influenza virus vacc ine, unspecified formulation Luis Kb PA-C Work Phone: [facility] 08-04-2008 influenza virus vacc ine, unspecified formulation Luis Kb PA-C Work Phone: [facility] 08-13-2007 influenza virus vacc ine, unspecified formulation Luis Kb PA-C Work Phone: [facility] 08-11-2004 influenza virus vacc ine, unspecified formulation Luis Kb PA-C Work Phone: [facility] 08-09-2003 influenza virus vacc ine, unspecified formulation Luis Kb PA-C Work Phone: [facility] 08-09-2003 pneumococcal polysaccharide vaccine, 23 valent Luis Kb PA-C Work Phone: [facility] Payers Date Payer Category Payer Medicare [employer] MEDICARE A ETNA MEDICARE PLAN (HMO) [id number] 2021-Present [phone] [address] [place] [address] [id number] 1960 Medicare [id number] 1944 Unknown [id number] 2.16.840.1.590953.3.579.2.593 1944 Unknown [id number] 2.16.840.1.723173.3.579.2.593 1944 Unknown [id number] 2.16.840.1.316221.3.579.2.593 1944 Unknown [id number] 2.16.840.1.693305.3.579.2.593 1944 Unknown [id number] 2.16.840.1.773096.3.579.2.593 1944 Unknown [id number] 2.16.840.1.563554.3.579.2.593 1944 Unknown [id number] 2.16.840.1.598488.3.579.2.593 1944 Unknown [id number] 2.16.840.1.084628.3.579.2.593 1944 Unknown [id number] 2.16.840.1.858257.3.579.2.593 1944 Unknown [id number] 2.16.840.1.945241.3.579.2.593 1944 Unknown [id number] 2.16.840.1.803595.3.579.2.593 1944 Unknown [id number] 2.16.840.1.675217.3.579.2.593 1944 Unknown [id number] 2.16.840.1.710525.3.579.2.593 1944 Unknown [id number] 2.16.840.1.890378.3.579.2.593 1944 Unknown [id number] 2.16.840.1.259024.3.579.2.593 1944 Unknown [id number] 2.16.840.1.460724.3.579.2.593 1944 Unknown [id number] 2.16.840.1.741779.3.579.2.1286 1944 Unknown [id number] 2.16.840.1.512091.3.579.2.1259 1944 Unknown [id number] 2.16.840.1.731909.3.579.2.1259 1944 Unknown [id number] 2.16.840.1.552457.3.579.2.1259 1944 Unknown [id number] 2.16.840.1.786286.3.579.2.1259 1944 Unknown [id number] 2.16.840.1.668074.3.579.2.9 1944 Unknown [id number] 2.16.840.1.947374.3.579.2.1259 1944 Unknown [id number] 2.16.840.1.469332.3.579.2.9 1944 Unknown [id number] 2.16.840.1.429502.3.579.2.1258 Unknown Social History Date Type Detail Facility Unknown if ever smoked [facility] Start: 12-28-2020 End: 03-19-2023 Sex Assigned At [facility] Other Start: 09-20-2022 Tobacco smoking status [facility] Ex-smoker [facility] End: 10-07-1969 History of tobacco use Current smoker [facility] End: 10-07-1969 History of tobacco use Cigarette Smoker [facility] Start: 09-20-2022 Tobacco use and exposure Smokeless tobacco non-user [facility] Start: 03-19-2023 Alcohol intake Ex-drinker (finding) [facility] Start: 12-28-2020 End: 03-19-2023 History of Social function [facility] Do you belong to any clubs or organizations such as mormon groups, unions, fraternal or athletic groups, or school groups? No [facility] Are you now , , , , never or living with a partner? [facility] How hard is it for y ou to pay for the very basics like food, housing, medical care, and heating Not hard at all [facility] Do you feel stress - tense, restless, nervous, or anxious, or unable to sleep at night because your mind is troubled all the time - these days [OSQ] Not at all [facility] Start: 1945 Sex Assigned At Not on file [facility] Goals Date Patient Goal Desired Activity /State Personal health goal Comment on above: Formatting of this n ote might be different from the original. Evaluation of progress towards goal: return home with homecare and support from [facility], children and grandchildren Clinical Notes 01-18-2022 to 05-11-2024 Note Date & Type Note Facility 05-11-2024 Note [facility] Cardiology Clinic Note Chief Complaint: Patient here for follow up [facility] discharge back in February 2024. She was admitted for chest pain and CHF, and seen as inpatient consult by Dr. Catherine. Chest pain has resolved, and she states OLZANO remains the same. She isn't sure which [...] kidney disease, Coronary artery disease, Diabetes mellitus ([facility]), Hyperlipidemia, and Hypertension. Surgical History She has [...] ventricular gram/pressure Indications (more content not included)... [facility] 02-10-2024 Note [facility] Cardiology Clinic Note Chief Complaint: Patient here to re-establish care. She was recently admitted to [facility] for hypertension. Had CABG since [...] longstanding diabetic. PAST MEDICAL HISTORY: Diabetes mellitus ([facility]) Hypertensive urgency Arthritis Dyspnea Chest pain Unstable angina ([facility]) Obesity (BMI 30-39.9) H/O four vessel coronary artery bypass graft Paroxysmal atrial fibrillation (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 [facility] 11-18-2023 Evaluation note Encounter Date Diagnosis Assessment [...] potassium improved with dietary restriction and Lasix. [facility] 01-29-2024 Evaluation note* Encounter Date Diagnosis Assessment Notes Treatment Notes Treatment Clinical Notes Oct, Anemia of renal disease (ICD-10 - D63.1) Oct, CKD (chronic kidney disease) stage 4, GFR 15-29 ml/min (ICD-10 - N18.4) [facility] 01-09-2024 Evaluation note* Encounter Date Diagnosis [...] potassium improved with dietary restriction and Lasix. [facility] 12-04-2023 Evaluation note* Encounter Date Diagnosis [...] 4, GFR 15-29 ml/min (ICD-10 - N18.4) [facility] 11-21-2023 Evaluation note* Encounter Date Diagnosis Assessment Notes Treatment Notes Treatment Clinical Notes Aug, Anemia of renal disease (ICD-10 - D63.1) Aug, CKD (chronic kidney disease) stage 4, GFR 15-29 ml/min (ICD-10 - N18.4) [facility] 11-09-2023 Evaluation note* Encounter Date Diagnosis [...] of kidney mass hydronephrosis or kidney stones. [facility] 10-26-2023 Evaluation note* Encounter Date Diagnosis [...] potassium improved with dietary restriction and Lasix. [facility] 09-18-2023 Evaluation note* Encounter Date Diagnosis [...] potassium improved with dietary restriction and Lasix. [facility] 08-31-2023 Evaluation note* Encounter Date Diagnosis [...] potassium improved with dietary restriction and Lasix. [facility] 07-25-2023 Evaluation note* Encounter Date Diagnosis [...] to normal with dietary restriction and Lasix. [facility] 07-01-2023 Evaluation note* Encounter Date Diagnosis Assessment Notes Treatment Notes Treatment Clinical Notes Apr, CKD (chronic kidney disease) stage 4, GFR 15-29 ml/min (ICD-10 - N18.4) Apr, Anemia of renal disease (ICD-10 - D63.1) [facility] 06-27-2023 Evaluation note* Encounter Date Diagnosis [...] to normal with dietary restriction and Lasix. [facility] 06-01-2023 Evaluation note* Encounter Date Diagnosis [...] potassium diet and provide information about it. [facility] 03-16-2023 Evaluation note* Encounter Date Diagnosis [...] to Continue Vit D 5000 units daily [facility] 01-30-2023 Evaluation note* Encounter Date Diagnosis [...] to Continue Vit D 5000 units daily [facility] 12-22-2022 Evaluation note* Encounter Date Diagnosis [...] to Continue Vit D 5000 units daily [facility] 11-16-2022 Evaluation note* Encounter Date Diagnosis [...] to Continue Vit D 5000 units daily [facility] 08-04-2022 Evaluation note* Encounter Date Diagnosis Assessment Notes Treatment Notes Treatment Clinical Notes May, Hypertensive chronic kidney disease with stage 1 through stage 4 chronic kidney disease, or unspecified chronic kidney disease (ICD-10 - I12.9) [facility] 08-02-2022 Evaluation note* Encounter Date Diagnosis [...] to Continue Vit D 5000 units daily [facility] Other 07-19-2022 Evaluation note* Encounter Date Diagnosis Assessment Notes Treatment Notes Treatment Clinical Notes Apr, Hypertensive chronic kidney disease with stage 1 through stage 4 chronic kidney disease, or unspecified chronic kidney disease (ICD-10 - I12.9) [facility] Other 04-14-2022 Evaluation note* Encounter Date Diagnosis [...] to take Vit D 1000 units daily [facility] Other Evaluation noteNo InformationNort Africa[employer] Other Evaluation note* Diagnosis 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 Hypertensive urgency Shortness of breath Paroxysmal atrial fibrillation (CMS-HCC) Atrial fibrillation Localized edema [facility] - [facility]* Type [...] History SEE ABOVE Hospitalization History COVID 09/2020 [facility] Other history general Narrative - Reported* Type [...] History SEE ABOVE Hospitalization History COVID 09/2020 [facility] Other history general Narrative - Reported* Type [...] History SEE ABOVE Hospitalization History COVID 09/2020 [facility] Other History general Narrative - [email or web address] Other History general Narrative - Reported* Type [...] History SEE ABOVE Hospitalization History COVID 09/2020 [facility] Other InstructionsNot on filedocumented in this encounter [facility] Summary Purpose Family History No Family [...] DATE CREATED AUTHOR 04/02/2018 [facility] DATE CREATED AUTHOR AUTHOR'S ORGANIZ ATION 01/27/2023 [facility] DATE CREATED AUTHOR AUTHOR'S ORGANIZ ATION 01/18/2024 [facility] DATE CREATED AUTHOR AUTHOR'S ORGANIZ ATION 05/12/2024 [facility] DATE CREATED AUTHOR AUTHOR'S ORGANIZ ATION 05/26/2024 [facility] EPIC REASON FOR VISIT (unrecogniz ed section and content) Reason Comments Med Refill Care Teams (unrecognized sec tion and content) Manager Performance Relationship Specialty Start Date End Date Dhruv Rubi MD [address] [place] [address] PCP - General Family Medicine 10/20/20 FOR [...] BE BASED ON THE PRIMARY CLINICAL RECORDS. [employer] [facility]. provides no warranty or guarantee of the accuracy or completeness of information in this document.
--- NOTE | 2024-06-10 08:22 | XR_ITS ---
[address] [address] Patient Name: KYLAH BERGER MRN: [id number] date: 1945 Sex: F Assigned Patient Location: [facility] Current Patient Location: [facility] Accession/Order Number: [id number] Exam Date: 06/10/2024 08:44 Report Date: 06/10/2024 10:29 At the request of: DHRUV GUTIERRES Procedure: XR DEXA axial skeleton EXAMINATION: XR DEXA axial skeleton HISTORY: age related osteoporosis without current fracture COMPARISON: DEXA bone densitometry 03/04/2019 TECHNIQUE: Dual-energy X-ray absorptiometry (DXA) was performed. FINDINGS: SPINE ANALYSIS: Average bone mineral density is 1.186 g/cm2. T-score (standard deviation relative to young adult mean): -0.1 . +6.2% change since prior study HIP ANALYSIS: Lowest bone mineral density is within the left femoral neck, 0.834 g/cm2. T-score (standard deviation relative to young adult mean): -1.5 . +8.8% change since prior study. XR/XR DEXA axial skeleton IMPRESSION: World Health Organization Classification: Osteopenia - Moderate Fracture Risk FRAX: Cannot calculate. Pharmacologic treatment recommendations * No uniform recommendation applies to all patients. Management plans must be individualized. * Consider initiating pharmacologic treatment in postmenopausal women and men >= 50 years of age who have the following: Primary fracture prevention: * T-score <= - 2.5 at the femoral neck, total hip, lumbar spine, 33% radius (some uncertainty with existing data) by DXA. * Low bone mass (osteopenia: T-score between - 1.0 and - 2.5) at the femoral neck or total hip by DXA with a 10-year hip fracture risk >= 3% or a 10-year major osteoporosis-related fracture risk >= 20% (i.e., clinical vertebral, hip, forearm, or proximal humerus) based on the [place]-adapted FRAXregistered model. Secondary fracture prevention: * Fracture of the hip or vertebra regardless of BMD [4, 5]. * Fracture of proximal humerus, pelvis, or distal forearm in persons with low bone mass (osteopenia: T-score between - 1.0 and - 2.5). The decision to treat should be individualized in persons with a fracture of the proximal humerus, pelvis, or distal forearm who do not have osteopenia or low BMD [12, 13]. Cristel MS, Giovanni SL, Terrie KL, Lacey EM, Tramaine KG, AJ, Jovita ES. The clinician's guide to prevention and treatment of osteoporosis. Osteoporos Int. 2021;33(10):3235-1857. doi: 10.1007/u94993-949-75129-m. Epub 2021Feb 01. Erratum in: Osteoporos Int. 2021May 03;: PMID: [id number]; PMCID: [id number]. Electronically authenticated by: YANET HUERTA Date: 06/10/2024 10:29
== END 2024-06-10 08:17 | disposition home or self-care (01) ==
LOC: RAD 08:18
PROVIDERS: PCP Family Medicine; Visit Provider Family Medicine
DX: M81.0 Age-related osteoporosis without current pathological fracture (principal); M85.80 Other specified disorders of bone density and structure, unspecified site
CPT/HCPCS: 77080

== ENCOUNTER 2024-06-18 16:03 | Outpatient (OUT) | payer MEDICARE, SELFPAY ==
--- OUTSIDE RECORDS SUMMARY | 2024-06-18 16:18 | XMS_ITS | CCD ---
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 Name Role Phone PHYSICIAN, DEFAULT Unavailable Unavailable [...] Unavailable Fiorellay Dhruv NESS Primary Care Provider [phone] THUAN DELVALLE Attending Unavailable DHRUV RUBI Referring [...] amLODIPine; Translations: [AMLODIPINE] Drug Allergy 03-28-20 05 [facility] [employer] (20 sources) Amoxicillin / Clavulanate Drug Allergy 11-23-19 21 [facility] [employer] Other (20 sources) Contrast media Propensity to adverse reactions Unknown [employer] Other (2 sources) Doxazosin; Translations: [doxazosin] Drug Allergy Unknown [employer] Other (20 sources) Sulfamethoxazole / Trimethoprim Drug Allergy 11-23-19 21 Rash [employer] Other (20 sources) Doxazosin; Translations: [DOXAZOSIN] Drug Allergy 11-23-19 21 Unknown [employer] Other (9 sources) Amoxicillin / Clavulanate; Translations: [Augmentin] Drug Allergy 11-16-19 16 Unknown [facility] (1 source) amLODIPine Drug Allergy 04-25-20 14 [facility] (1 source) Sulfamethoxazole / Trimethoprim Drug Allergy 03-09-20 13 [facility] (3 sources) Iodinated Contrast Media; Translations: [IODINATED CONTRAST MEDIA] Propensity to adverse reactions to drug 11-23-19 21 [employer] [employer] (2 sources) Sulfamethoxazole / Trimethoprim; Translations: [SULFAMETHOXAZOLE-T RIMETHOPRIM] Drug Allergy 08-04-[address] [facility] (2 sources) AMOXICILLIN-POT CLAVULANATE; Translations: [AMOXICILLIN-POT CLAVULANATE] Propensity to adverse reactions to drug (disorder) 11-23-[address] [facility] (1 source) Sulfamethoxazole; Translations: [SULFAMETHOXAZOLE] Drug Allergy 03-12-20 23 [facility] Medications Current Medications Medication Drug [...] coronary artery bypass graft , Atherosclerosis of [place] coronary artery of [place] heart without angina pectoris , Paroxysmal atrial [...] (LIPITOR) 80 mg tablet Indications: Atherosclerosis of [place] coronary artery of [place] heart without angina pectoris , H/O four [...] / sennosides, long-term 8.6 mg oral tablet (5 sources) take 1 tablet by mouth every twelve hours Sennosides-Docusate Sodium 8.6-50 MG 1 tablet in the evening as needed Orally every 12 hours Active epoetin johnna-epbx 20850 UNT/ML Injectable Solution [Retacrit] (14 sources) Retacrit 60138 U NIT/ML as directed Injection Active ferrous [...] 0 12/05/2021 Active take 2 tablets by [facility] every twenty-four hours Liothyronine Sodium 5 MCG 2 tablets on a n empty stomach Orally Once a day Active take 2 tablets by [facility] every twenty-four hours lisinopril 10 mg oral [...] in the morning. 0 12/19/2020 Active retacrit 83859 unit/ml solution (5 sources) Retacrit 81605 UNIT/ML as directed Injection Active Sennosides-Docusate Sodium [...] Coronary atherosclerosis; Translations: [Atherosclerotic heart disease of [place] coronary artery without angina pectoris] Onset: 1 [...] Range Facility Office Visiton 05-11-2024 Follow-up visit [id number] Garima Robin 1945 F Date Provider Department Center 05/11/2024 271-[facility]LIE CATH[facility]INE [facility] No family history on file Level of Service:91596 [place] OFFICE/OUTPATIENT ESTABLISHED MOD MDM 30 MIN Normal [facility] Office Visiton 02-10-2024 Follow-up visit [id number] Garima Robin 1945 F Date Provider Department [place] 02/10/2024 CARLIE TORRES [facility] No family history on file Level of Service:32419 [place] OFFICE/OUTPATIENT ESTABLISHED MOD MDM 30 MIN Normal [facility] HEMOGRAM AND PLATELon 2022 Hematocrit (Bld) [Volume fraction] 28.8 % Critically low 36.0-48.0 [facility] Comment on above: Performed By: #### H H #### [facility] [address] [place] [address] Dr. Ember Teague Hemoglobin (Bld) [Mass/Vol] 9.6 g/dL Critically low 12.0-16.0 [facility] Comment on above: Performed By: #### H H #### [facility] [address] [address] [address] Ember Teague MCH (RBC) [Entitic mass] 30.7 pg Normal 26.7-34.0 [facility] Comment on above: Performed By: #### H H #### [facility] [address] [address] [address] Ember Teague MCHC (RBC) [Mass/Vol] 33.3 g/dL Normal 29.9-35.2 [facility] Comment on above: Performed By: #### H H #### [facility] [address] [address] [address] Ember Teague MCV (RBC) [Entitic vol] 92.0 fL Normal 81.0-99.0 [facility] Comment on above: Performed By: #### H H #### [facility] [address] [place] [address] Dr. Ember Teague PLT 214 103/ul Normal 150-450 [facility] Comment on above: Performed By: #### H H #### [facility] [address] [address] [address] Ember Teague RBC 3.13 106/ul Critically low 4.20-5.40 [facility] Comment on above: Performed By: #### H H #### [facility] [address] [address] [address] Ember Teague WBC 7.4 103/ul Normal 4.0-11.0 [facility] Comment on above: Performed By: #### H H #### [facility] [address] [place] [address] Dr. Ember Teague MAGNESIUMon 01-22-2023 Magnesium [Mass/Vol] 1.8 mg/dL Normal 1.8-2.4 [facility] Comment on above: Performed By: #### M G, RENAL #### [facility] [address] [place] [address] Dr. Ember Teague RENAL FUNCTION PANELon 01-22 Albumin [Mass/Vol] 3.6 g/dL Normal 3.4-5.0 [facility] Comment on above: Performed By: #### M G, RENAL #### [facility] [address] [address] [address] Ember Teague Calcium [Mass/Vol] 9.7 mg/dL Normal 8.5-10.1 [facility] Comment on above: Performed By: #### M G, RENAL #### [facility] [address] [place] [address] Dr. Ember Teague Chloride [Moles/Vol] 105 mmol/L Normal 98-107 [facility] Comment on above: Performed By: #### M G, RENAL #### [facility] [address] [address] [address] Ember Teague CO2 [Moles/Vol] 22.6 mmol/L Normal 21.0-32.0 [facility] Comment on above: Performed By: #### M G, RENAL #### [facility] [address] [address] [address] Ember Teague Creatinine [Mass/Vol] 2.18 mg/dL Critically high 0.55-1.02 [facility] Comment on above: Performed By: #### M G, RENAL #### [facility] [address] [address] [address] Ember Teague EGFR-AF JAPANESE 26 mL/min/1.73m2 Critically low >=60 [facility] Comment on above: Performed By: #### M G, RENAL #### [facility] [address] [address] [address] Ember Teague EGFR-NON AF JAPANESE 22 mL/min/1.73m2 Critically low >=60 [facility] Comment on above: Performed By: #### M G, RENAL #### [facility] [address] [address] [address] Ember Teague Glucose [Mass/Vol] 134 mg/dL Critically high 74-106 [facility] Comment on above: Performed By: #### M G, RENAL #### [facility] [address] [address] [address] Ember Teague Phosphate [Mass/Vol] 4.6 mg/dL Normal 2.6-4.7 [facility] Comment on above: Performed By: #### M G, RENAL #### [facility] [address] [place] [address] Dr. Ember Teague Potassium [Moles/Vol] 5.1 mmol/L Normal 3.5-5.1 [facility] Comment on above: Performed By: #### M G, RENAL #### [facility] [address] [place] [address] Dr. Ember Teague Sodium [Moles/Vol] 138 mmol/L Normal 136-145 [facility] Comment on above: Performed By: #### M G, RENAL #### [facility] [address] [address] [address] Ember Teague Urea nitrogen [Mass/Vol] 61.0 mg/dL Critically high 7.0-18.0 [facility] Comment on above: Performed By: #### M G, RENAL #### [facility] [address] [address] [address] Ember Teague MG MAMM SCREEN 3D MAY CADon 12-17-2022 MG MAMM SCREEN 3D MAY CAD Patient: KYLAH ROBIN Exam Date: 12/17/2022 : 1945 Gender:F Ordering : DR DHRUV RUBI . Admission #: [id number] Family : Order #: [id number] CLICK HERE TO VIEW EXAM RADIOLOGY REPORT [...] lung cancer at age 61. LOCATION: [facility] BREAST COMPOSITION: Scattered areas fibroglandular density. [...] MD on 12/17/2022 at 11:59 Normal [facility] FERRITINon 12-10-2022 Ferritin [Mass/Vol] 681.0 ng/mL Critically high 8.0-252.0 [facility] Comment on above: Performed By: #### P THINT #### [facility] [address] [address] [address] Ember Teague HEMOGRAM AND PLATELon 2022 Hematocrit (Bld) [Volume fraction] 27.1 % Critically low 36.0-48.0 [facility] Comment on above: Performed By: #### C VDTBH #### [facility] [address] [address] [address] Ember Teague Hemoglobin (Bld) [Mass/Vol] 9.7 g/dL Critically low 12.0-16.0 [facility] Comment on above: Performed By: #### C VDTBH #### [facility] [address] [place] [address] Dr. Ember Teague MCH (RBC) [Entitic mass] 31.4 pg Normal 26.7-34.0 [facility] Comment on above: Performed By: #### C VDTBH #### [facility] [address] [place] [address] Dr. Ember Teague MCHC (RBC) [Mass/Vol] 35.8 g/dL Critically high 29.9-35.2 [facility] Comment on above: Performed By: #### C VDTBH #### [facility] [address] [place] [address] Dr. Ember Teague MCV (RBC) [Entitic vol] 87.7 fL Normal 81.0-99.0 [facility] Comment on above: Performed By: #### C VDTBH #### [facility] [address] [place] [address] Dr. Ember Teague PLT 218 103/ul Normal 150-450 [facility] Comment on above: Performed By: #### C VDTBH #### [facility] [address] [place] [address] Dr. Ember Teague RBC 3.09 106/ul Critically low 4.20-5.40 [facility] Comment on above: Performed By: #### C VDTBH #### [facility] [address] [place] [address] Dr. Ember Teague WBC 6.6 103/ul Normal 4.0-11.0 [facility] Comment on above: Performed By: #### C VDTBH #### [facility] [address] [place] [address] Dr. Ember Teague IRON AND TIBCon 12-10-2022 % SATURATION 30.2 % Normal [facility] Comment on above: Performed By: #### P THINT #### [facility] [address] [place] [address] Dr. Ember Teague Iron [Mass/Vol] 84.0 ug/dL Normal 50.0-170.0 [facility] Comment on above: Performed By: #### P THINT #### [facility] [address] [place] [address] Dr. Ember Teague TIBC DIRECT 278.0 ug/dL Normal 250.0-450.[address] [facility] Comment on above: Performed By: #### P THINT #### [facility] [address] [place] [address] Dr. Ember Teague XR FOOT MAY MIN [...] BENI APARICIO Date: 2022-11-20 14:03 Normal [facility] HEMOGRAM AND PLATELon 2022 Hematocrit (Bld) [Volume fraction] 27.7 % Critically low 36.0-48.0 [facility] Comment on above: Performed By: #### R ENAL #### [facility] [address] [address] [address] Ember Teague Hemoglobin (Bld) [Mass/Vol] 10.0 g/dL Critically low 12.0-16.0 [facility] Comment on above: Performed By: #### R ENAL #### [facility] [address] [place] [address] Dr. Ember Teague MCH (RBC) [Entitic mass] 31.6 pg Normal 26.7-34.0 [facility] Comment on above: Performed By: #### R ENAL #### [facility] [address] [address] [address] Ember Teague MCHC (RBC) [Mass/Vol] 36.1 g/dL Critically high 29.9-35.2 [facility] Comment on above: Performed By: #### R ENAL #### [facility] [address] [address] [address] Ember Teague MCV (RBC) [Entitic vol] 87.7 fL Normal 81.0-99.0 [facility] Comment on above: Performed By: #### R ENAL #### [facility] [address] [address] [address] Ember Teague PLT 182 103/ul Normal 150-450 [facility] Comment on above: Performed By: #### R ENAL #### [facility] [address] [place] [address] Dr. Ember Teague RBC 3.16 106/ul Critically low 4.20-5.40 [facility] Comment on above: Performed By: #### R ENAL #### [facility] [address] [place] [address] Dr. Ember Teague WBC 6.8 103/ul Normal 4.0-11.0 [facility] Comment on above: Performed By: #### R ENAL #### [facility] [address] [place] [address] Dr. Ember Teague PROF CHEM 8 (BAS METB)on Anion gap [Moles/Vol] 17.6 mmol/L Normal [facility] Comment on above: Performed By: #### C VDTBH #### [facility] [address] [place] [address] Dr. Ember Teague Calcium [Mass/Vol] 9.0 mg/dL Normal 8.5-10.1 [facility] Comment on above: Performed By: #### C VDTBH #### [facility] [address] [place] [address] Dr. Ember Teague Chloride [Moles/Vol] 104 mmol/L Normal 98-107 [facility] Comment on above: Performed By: #### C VDTBH #### [facility] [address] [address] [address] Ember Teague CO2 [Moles/Vol] 22.2 mmol/L Normal 21.0-32.0 [facility] Comment on above: Performed By: #### C VDTBH #### [facility] [address] [address] [address] Ember Teague Creatinine [Mass/Vol] 2.03 mg/dL Critically high 0.55-1.02 [facility] Comment on above: Performed By: #### C VDTBH #### [facility] [address] [address] [address] Ember Teague EGFR-AF JAPANESE 29 mL/min/1.73m2 Critically low >=60 [facility] Comment on above: Performed By: #### C VDTBH #### [facility] [address] [address] [address] Ember Teague EGFR-NON AF JAPANESE 24 mL/min/1.73m2 Critically low >=60 [facility] Comment on above: Performed By: #### C VDTBH #### [facility] [address] [address] [address] Ember Teague Glucose [Mass/Vol] 154 mg/dL Critically high 74-106 [facility] Comment on above: Performed By: #### C VDTBH #### [facility] [address] [address] [address] Ember Teague Potassium [Moles/Vol] 4.8 mmol/L Normal 3.5-5.1 [facility] Comment on above: Performed By: #### C VDTBH #### [facility] [address] [address] [address] Ember Teague Sodium [Moles/Vol] 139 mmol/L Normal 136-145 [facility] Comment on above: Performed By: #### C VDTBH #### [facility] [address] [address] [address] Ember Teague Urea nitrogen [Mass/Vol] 43.0 mg/dL Critically high 7.0-18.0 [facility] Comment on above: Performed By: #### C VDTBH #### [facility] [address] [address] [address] Ember Teague Urea nitrogen/Creatinine [Mass ratio] 21.2 mg/mg Normal [facility] Comment on above: Performed By: #### C VDTBH #### [facility] [address] [address] [address] Ember Teague CULTURE SPUTUMon 10-24-2022 CULTURE SPUTUM Culture Observations : Beta lactamase positive Isolate 1 Haemophilus influenzae Moderate growth of Normal [facility] Comment on above: Performed By: #### R ENAL #### [facility] [address] [address] [address] Ember Teague SPUTUM GRAM STAINon 10-24-19 COMMENTS Normal [facility] Comment on above: Performed By: #### R ENAL #### [facility] [address] [address] [address] Ember Teague DIPHTHEROIDS Normal [facility] Comment on above: Performed By: #### R ENAL #### [facility] [address] [address] [address] Ember Teague EPITHELIALS >25 Normal [facility] Comment on above: Performed By: #### R ENAL #### [facility] [address] [address] [address] Ember Teague FUNGAL ELEMENTS Normal [facility] Comment on above: Performed By: #### R ENAL #### [facility] [address] [address] [address] Ember Teague GRAM NEG BACILLI Normal [facility] Comment on above: Performed By: #### R ENAL #### [facility] [address] [address] [address] Ember Teague GRAM NEG DIPPLOCOCCI FEW Normal [facility] Comment on above: Performed By: #### R ENAL #### [facility] [address] [address] [address] Ember Teague GRAM POS BACILLI FEW Normal [facility] Comment on above: Performed By: #### R ENAL #### [facility] [address] [address] [address] Ember Teague GRAM POSITIVE COCCI MANY Normal [facility] Comment on above: Performed By: #### R ENAL #### [facility] [address] [address] [address] Ember Teague WBC (Bld) [#/Vol] 10*3/uL Normal [facility] Comment on above: Performed By: #### R ENAL #### [facility] [address] [place] [address] Dr. Ember Teague XR CHEST 2 Von [...] ANGELINA BRISENO Date: 2022-10-24 16:22 Normal [facility] FERRITINon 09-18-2022 Ferritin [Mass/Vol] 612.0 ng/mL Critically high 8.0-252.0 [facility] Comment on above: Performed By: #### F ERR, FETIBC #### [facility] [address] [place] [address] Dr. Ember Teague HEMOGRAM AND PLATELon 2021 Hematocrit (Bld) [Volume fraction] 28.1 % Critically low 36.0-48.0 [facility] Comment on above: Performed By: #### C BC #### [facility] [address] [place] [address] Dr. Ember Teague Hemoglobin (Bld) [Mass/Vol] 9.7 g/dL Critically low 12.0-16.0 [facility] Comment on above: Performed By: #### C BC #### [facility] [address] [place] [address] Dr. Ember Teague MCH (RBC) [Entitic mass] 31.3 pg Normal 26.7-34.0 [facility] Comment on above: Performed By: #### C BC #### [facility] [address] [place] [address] Dr. Ember Teague MCHC (RBC) [Mass/Vol] 34.5 g/dL Normal 29.9-35.2 [facility] Comment on above: Performed By: #### C BC #### [facility] [address] [place] [address] Dr. Ember Teague MCV (RBC) [Entitic vol] 90.6 fL Normal 81.0-99.0 [facility] Comment on above: Performed By: #### C BC #### [facility] [address] [place] [address] Dr. Ember Teague PLT 183 103/ul Normal 150-450 [facility] Comment on above: Performed By: #### C BC #### [facility] [address] [place] [address] Dr. Ember Teague RBC 3.10 106/ul Critically low 4.20-5.40 [facility] Comment on above: Performed By: #### C BC #### [facility] [address] [place] [address] Dr. Ember Teague WBC 7.2 103/ul Normal 4.0-11.0 [facility] Comment on above: Performed By: #### C BC #### [facility] [address] [place] [address] Dr. Ember Teague IRON AND TIBCon 09-18-2022 % SATURATION 36.0 % Normal [facility] Comment on above: Performed By: #### F ERR, FETIBC #### [facility] [address] [place] [address] Dr. Ember Teague Iron [Mass/Vol] 77.0 ug/dL Normal 50.0-170.0 [facility] Comment on above: Performed By: #### F ERR, FETIBC #### [facility] [address] [place] [address] Dr. Ember Teague TIBC DIRECT 214.0 ug/dL Critically low 250.0-450.0 [facility] Comment on above: Performed By: #### F ERR, FETIBC #### [facility] [address] [place] [address] Dr. Ember Teague RENAL FUNCTION PANELon 09-18 Albumin [Mass/Vol] 3.7 g/dL Normal 3.4-5.0 [facility] Comment on above: Performed By: #### R ENAL #### [facility] [address] [address] [address] Ember Teague Calcium [Mass/Vol] 9.5 mg/dL Normal 8.5-10.1 [facility] Comment on above: Performed By: #### R ENAL #### [facility] [address] [place] [address] Dr. Ember Teague Chloride [Moles/Vol] 103 mmol/L Normal 98-107 [facility] Comment on above: Performed By: #### R ENAL #### [facility] [address] [place] [address] Dr. Ember Teague CO2 [Moles/Vol] 21.1 mmol/L Normal 21.0-32.0 [facility] Comment on above: Performed By: #### R ENAL #### [facility] [address] [place] [address] Dr. Ember Teague Creatinine [Mass/Vol] 1.85 mg/dL Critically high 0.55-1.02 [facility] Comment on above: Performed By: #### R ENAL #### [facility] [address] [place] [address] Dr. Embre Teague EGFR-AF JAPANESE 32 mL/min/1.73m2 Critically low >=60 [facility] Comment on above: Performed By: #### R ENAL #### [facility] [address] [place] [address] Dr. Ember Teague EGFR-NON AF JAPANESE 26 mL/min/1.73m2 Critically low >=60 [facility] Comment on above: Performed By: #### R ENAL #### [facility] [address] [place], [place] [id number] Dr. Ember Teague Glucose [Mass/Vol] 183 mg/dL Critically high 74-106 [facility] Comment on above: Performed By: #### R ENAL #### [facility] [address] [address] [address] Ember Teague Phosphate [Mass/Vol] 3.7 mg/dL Normal 2.6-4.7 [facility] Comment on above: Performed By: #### R ENAL #### [facility] [address] [address] [address] Ember Teague Potassium [Moles/Vol] 4.9 mmol/L Normal 3.5-5.1 [facility] Comment on above: Performed By: #### R ENAL #### [facility] [address] [place] [address] Dr. Ember Teague Sodium [Moles/Vol] 138 mmol/L Normal 136-145 [facility] Comment on above: Performed By: #### R ENAL #### [facility] [address] [place] [address] Dr. Ember Teague Urea nitrogen [Mass/Vol] 40.0 mg/dL Critically high 7.0-18.0 [facility] Comment on above: Performed By: #### R ENAL #### [facility] [address] [place] [address] Dr. Ember Teague CULTURE URINEon 09-15-2022 CULTURE [...] Trimethoprim/Sulfamet hoxazole <=20 S F Normal [facility] Comment on above: Performed By: #### R ENAL #### [facility] [address] [place] [address] Dr. Ember Teague BNPon 09-11-2022 Natriuretic peptide B (Bld) [Mass/Vol] 408.0 pg/mL Normal <=1,800.0 [facility] Comment on above: Performed By: #### P THINT #### [facility] [address] [place] [address] Dr. Ember Teague CBC AUTO DIFFon 09-11-2022 BASO # 0.0 103/ul Normal 0.0-0.1 [facility] Comment on above: Performed By: #### C BC #### [facility] [address] [place] [address] Dr. Ember Teague Basophils/100 WBC (Bld) 0.3 % Normal 0.2-2.0 [facility] Comment on above: Performed By: #### C BC #### [facility] [address] [place] [address] Dr. Ember Teague EO # 0.1 103/ul Normal 0.0-0.7 [facility] Comment on above: Performed By: #### C BC #### [facility] [address] [place] [address] Dr. Ember Teague Eosinophils/100 WBC (Bld) 1.9 % Normal 0.9-7.0 [facility] Comment on above: Performed By: #### C BC #### [facility] [address] [place] [address] Dr. Ember Teague Erythrocyte distribution width (RBC) [Ratio] 15.2 % Critically high 11.0-15.0 [facility] Comment on above: Performed By: #### C BC #### [facility] [address] [place] [address] Dr. Ember Teague Hematocrit (Bld) [Volume fraction] 26.6 % Critically low 36.0-48.0 [facility] Comment on above: Performed By: #### C BC #### [facility] [address] [place] [address] Dr. Ember Teague Hemoglobin (Bld) [Mass/Vol] 9.0 g/dL Critically low 12.0-16.0 [facility] Comment on above: Performed By: #### C BC #### [facility] [address] [place] [address] Dr. Ember Teague IG # 0.02 10e3/ul Normal 0.00-0.03 [facility] Comment on above: Performed By: #### C BC #### [facility] [address] [place] [address] Dr. Ember Teague IG % 0.3 % Normal 0.0-0.5 [facility] Comment on above: Performed By: #### C BC #### [facility] [address] [place] [address] Dr. Ember Teague LYMPH # 1.9 103/ul Normal 1.2-3.8 [facility] Comment on above: Performed By: #### C BC #### [facility] [address] [place] [address] Dr. Ember Teague Lymphocytes/100 WBC (Bld) 32.4 % Normal 20.5-60.0 [facility] Comment on above: Performed By: #### C BC #### [facility] [address] [place] [address] Dr. Ember Teague MANUAL DIFF REQ NO Normal [facility] Comment on above: Performed By: #### C BC #### [facility] [address] [place] [address] Dr. Ember Teague MCH (RBC) [Entitic mass] 31.1 pg Normal 26.7-34.0 [facility] Comment on above: Performed By: #### C BC #### [facility] [address] [place] [address] Dr. Ember Teague MCHC (RBC) [Mass/Vol] 33.8 g/dL Normal 29.9-35.2 [facility] Comment on above: Performed By: #### C BC #### [facility] [address] [place] [address] Dr. Ember Teague MCV (RBC) [Entitic vol] 92.0 fL Normal 81.0-99.0 [facility] Comment on above: Performed By: #### C BC #### [facility] [address] [address] [address] Ember Teague MONO # 0.6 103/ul Normal 0.3-0.8 [facility] Comment on above: Performed By: #### C BC #### [facility] [address] [address] [address] Ember Teague Monocytes/100 WBC (Bld) 10.0 % Normal 1.7-12.0 [facility] Comment on above: Performed By: #### C BC #### [facility] [address] [place] [address] Dr. Ember Teague NEUT # 3.2 103/ul Normal 1.4-6.5 [facility] Comment on above: Performed By: #### C BC #### [facility] [address] [place] [address] Dr. Ember Teague Neutrophils/100 WBC (Bld) 55.1 % Normal 43.0-75.0 [facility] Comment on above: Performed By: #### C BC #### [facility] [address] [place] [address] Dr. Ember Teague Platelet mean volume (Bld) [Entitic vol] 9.4 fL Critically low 9.5-13.5 [facility] Comment on above: Performed By: #### C BC #### [facility] [address] [place] [address] Dr. Ember Teague PLT 196 103/ul Normal 150-450 [facility] Comment on above: Performed By: #### C BC #### [facility] [address] [place] [address] Dr. Ember Teague RBC 2.89 106/ul Critically low 4.20-5.40 [facility] Comment on above: Performed By: #### C BC #### [facility] [address] [place] [address] Dr. Ember Teague WBC 5.8 103/ul Normal 4.0-11.0 [facility] Comment on above: Performed By: #### C BC #### [facility] [address] [place] [address] Dr. Ember Teague PROF 14(COMP METB)on 022 Albumin [Mass/Vol] 3.7 g/dL Normal 3.4-5.0 [facility] Comment on above: Performed By: #### P THINT #### [facility] [address] [place] [address] Dr. Ember Taegue Albumin/Globulin [Mass ratio] 1.0 {ratio} Normal [facility] Comment on above: Performed By: #### P THINT #### [facility] [address] [place] [address] Dr. Ember Teague ALP [Catalytic activity/Vol] 79 U/L Normal 46-116 [facility] Comment on above: Performed By: #### P THINT #### [facility] [address] [place] [address] Dr. Ember Teague ALT [Catalytic activity/Vol] 24 U/L Normal 14-59 [facility] Comment on above: Performed By: #### P THINT #### [facility] [address] [place] [address] Dr. Ember Teague Anion gap [Moles/Vol] 12.8 mmol/L Normal [facility] Comment on above: Performed By: #### P THINT #### [facility] [address] [place] [address] Dr. Ember Teague AST [Catalytic activity/Vol] 17 U/L Normal 15-37 [facility] Comment on above: Performed By: #### P THINT #### [facility] [address] [place] [address] Dr. Ember Teague Bilirubin [Mass/Vol] 0.5 mg/dL Normal 0.2-1.0 [facility] Comment on above: Performed By: #### P THINT #### [facility] [address] [place] [address] Dr. Ember Teague Calcium [Mass/Vol] 9.4 mg/dL Normal 8.5-10.1 [facility] Comment on above: Performed By: #### P THINT #### [facility] [address] [address] [address] Ember Teague Chloride [Moles/Vol] 101 mmol/L Normal 98-107 [facility] Comment on above: Performed By: #### P THINT #### [facility] [address] [address] [address] Ember Teague CO2 [Moles/Vol] 24.3 mmol/L Normal 21.0-32.0 [facility] Comment on above: Performed By: #### P THINT #### [facility] [address] [address] [address] Ember Teague Creatinine [Mass/Vol] 2.84 mg/dL Critically high 0.55-1.02 [facility] Comment on above: Performed By: #### P THINT #### [facility] [address] [address] [address] Ember Teague EGFR-AF JAPANESE 20 mL/min/1.73m2 Critically low >=60 [facility] Comment on above: Performed By: #### P THINT #### [facility] [address] [address] [address] Ember Teague EGFR-NON AF JAPANESE 16 mL/min/1.73m2 Critically low >=60 [facility] Comment on above: Performed By: #### P THINT #### [facility] [address] [address] [address] Ember Teague Globulin (S) [Mass/Vol] 3.7 g/dL Normal [facility] Comment on above: Performed By: #### P THINT #### [facility] [address] [address] [address] Ember Teague Glucose [Mass/Vol] 174 mg/dL Critically high 74-106 [facility] Comment on above: Performed By: #### P THINT #### [facility] [address] [address] [address] Ember Teague Potassium [Moles/Vol] 5.1 mmol/L Normal 3.5-5.1 [facility] Comment on above: Performed By: #### P THINT #### [facility] [address] [place], [place] [address] Dr. Ember Teague Protein [Mass/Vol] 7.4 g/dL Normal 6.4-8.2 [facility] Comment on above: Performed By: #### P THINT #### [facility] [address] [place], [place] [address] Dr. Ember Teague Sodium [Moles/Vol] 133 mmol/L Critically low 136-[address] [facility] Comment on above: Performed By: #### P THINT #### [facility] [address] [address] [address] Ember Teague Urea nitrogen [Mass/Vol] 68.0 mg/dL Critically high 7.0-18.0 [facility] Comment on above: Performed By: #### P THINT #### [facility] [address] [address] [address] Ember Teague Urea nitrogen/Creatinine [Mass ratio] 23.9 mg/mg Normal [facility] Comment on above: Performed By: #### P THINT #### [facility] [address] [address] [address] Ember Teague TROPONIN, HIGH SENSITIVITYon 09-11-2022 HSTROP 9.1 pg/mL Normal 4.0-51.3 [facility] Comment on above: Result Comment: CUT- OFF POINTS HAVE BEEN ESTABLISHED BASED ON THE FOURTH UNIVERSAL DEFINITIONS OF MYOCARDIAL INFARCTION. THE UPPER REFERENCE LIMIT (URL) OF TROPONIN, DEFINED THE 99TH PERCENTILE OF cTnI DISTRIBUTION IN A REFERENCE POPULATION, HAS BEEN CONFIRMED THE DECISION THRESHOLD FOR MT DIAGNOSIS. Performed By: #### P THINT #### [facility] [address] [place] [address] [id number] [address] Ember Teague UA RANDOM W/MICROSCOPICon BACTERIA NONE SEEN Normal NONE SEEN [facility] Comment on above: Performed By: #### C VDTBH #### [facility] [address] [place], [place] [id number] Dr. Ember Teague Bilirubin Ql (U) Negative Normal NEGATIVE [facility] Comment on above: Performed By: #### C VDTBH #### [facility] [address] [place] [address] Dr. Ember Teague CAST NONE SEEN Normal NONE SEEN [facility] Comment on above: Performed By: #### C VDTBH #### [facility] [address] [place] [address] Dr. Ember Teague Clarity (U) CLEAR Normal CLEAR [facility] Comment on above: Performed By: #### C VDTBH #### [facility] [address] [place] [address] Dr. Ember Teague Color (U) LT. YELLOW Normal YELLOW [facility] Comment on above: Performed By: #### C VDTBH #### [facility] [address] [place] [address] Dr. Ember Teague Crystals LM Nom (Urine sed) NONE SEEN Normal NONE SEEN [facility] Comment on above: Performed By: #### C VDTBH #### [facility] [address] [place] [address] Dr. Ember Teague Epithelial cells LM Ql (Urine sed) FEW Abnormal NONE SEEN /RARE [facility] Comment on above: Performed By: #### C VDTBH #### [facility] [address] [place] [address] Dr. Ember Teague Glucose Ql (U) Negative Normal NEGATIVE [facility] Comment on above: Performed By: #### C VDTBH #### [facility] [address] [place] [address] Dr. Ember Teague Hemoglobin Ql (U) Negative Normal NEGATIVE [facility] Comment on above: Performed By: #### C VDTBH #### [facility] [address] [place] [address] Dr. Ember Teague Ketones Ql (U) Negative Normal NEGATIVE [facility] Comment on above: Performed By: #### C VDTBH #### [facility] [address] [place] [address] Dr. Ember Teague LEUKOCYTES Negative Normal NEGATIVE [facility] Comment on above: Performed By: #### C VDTBH #### [facility] [address] [place] [address] Dr. Ember Teague MUCOUS NONE SEEN Normal NONE SEEN [facility] Comment on above: Performed By: #### C VDTBH #### [facility] [address] [address] [address] Ember Teague Nitrite Ql (U) Negative Normal NEGATIVE [facility] Comment on above: Performed By: #### C VDTBH #### [facility] [address] [place] [address] Dr. Ember Teague pH (U) 5.5 [pH] Normal 5-9 [facility] Comment on above: Performed By: #### C VDTBH #### [facility] [address] [place] [address] Dr. Ember Teague RBC NONE SEEN Abnormal 0-2 [facility] Comment on above: Performed By: #### C VDTBH #### [facility] [address] [place] [address] Dr. Ember Teague SPEC GRAVITY 1.010 Normal 1.005-<=1.025 [facility] Comment on above: Performed By: #### C VDTBH #### [facility] [address] [place] [address] Dr. Ember Teague UA PROTEIN Negative Normal NEGATIVE/ TRACE [facility] Comment on above: Performed By: #### C VDTBH #### [facility] [address] [place] [address] Dr. Ember Teague Urobilinogen Qn (U) 0.2 {Esau'U}/dL Normal 0.2 - 1. 0 [facility] Comment on above: Performed By: #### C VDTBH #### [facility] [address] [place] [address] Dr. Ember Teague WBC NONE SEEN Normal NONE SEEN [facility] Comment on above: Performed By: #### C VDTBH #### [facility] [address] [place] [address] Dr. Ember Teague CBC AUTO DIFFon 08-13-2022 BASO # 0.0 103/ul Normal 0.0-0.1 [facility] Comment on above: Performed By: #### C BC #### [facility] [address] [address] [address] Ember Teague Basophils/100 WBC (Bld) 0.3 % Normal 0.2-2.0 [facility] Comment on above: Performed By: #### C BC #### [facility] [address] [place] [address] Dr. Ember Teague EO # 0.2 103/ul Normal 0.0-0.7 [facility] Comment on above: Performed By: #### C BC #### [facility] [address] [place] [address] Dr. Ember Teague Eosinophils/100 WBC (Bld) 3.7 % Normal 0.9-7.0 [facility] Comment on above: Performed By: #### C BC #### [facility] [address] [place] [address] Dr. Ember Teague Erythrocyte distribution width (RBC) [Ratio] 15.0 % Normal 11.0-15.0 [facility] Comment on above: Performed By: #### C BC #### [facility] [address] [place] [address] Dr. Ember Teague Hematocrit (Bld) [Volume fraction] 27.9 % Critically low 36.0-48.0 [facility] Comment on above: Performed By: #### C BC #### [facility] [address] [place] [address] Dr. Ember Teague Hemoglobin (Bld) [Mass/Vol] 9.7 g/dL Critically low 12.0-16.0 [facility] Comment on above: Performed By: #### C BC #### [facility] [address] [place] [address] Dr. Ember Teague IG # 0.01 10e3/ul Normal 0.00-0.03 [facility] Comment on above: Performed By: #### C BC #### [facility] [address] [place] [address] Dr. Ember Teague IG % 0.2 % Normal 0.0-0.5 [facility] Comment on above: Performed By: #### C BC #### [facility] [address] [place] [address] Dr. Ember Teague LYMPH # 1.9 103/ul Normal 1.2-3.8 [facility] Comment on above: Performed By: #### C BC #### [facility] [address] [place] [address] Dr. Ember Teague Lymphocytes/100 WBC (Bld) 32.2 % Normal 20.5-60.0 [facility] Comment on above: Performed By: #### C BC #### [facility] [address] [place] [address] Dr. Ember Teague MANUAL DIFF REQ NO Normal [facility] Comment on above: Performed By: #### C BC #### [facility] [address] [place] [address] Dr. Ember Teague MCH (RBC) [Entitic mass] 31.4 pg Normal 26.7-34.0 [facility] Comment on above: Performed By: #### C BC #### [facility] [address] [place] [address] Dr. Ember Teague MCHC (RBC) [Mass/Vol] 34.8 g/dL Normal 29.9-35.2 [facility] Comment on above: Performed By: #### C BC #### [facility] [address] [place] [address] Dr. Ember Teague MCV (RBC) [Entitic vol] 90.3 fL Normal 81.0-99.0 [facility] Comment on above: Performed By: #### C BC #### [facility] [address] [place] [address] Dr. Ember Teague MONO # 0.6 103/ul Normal 0.3-0.8 [facility] Comment on above: Performed By: #### C BC #### [facility] [address] [place] [address] Dr. Ember Teague Monocytes/100 WBC (Bld) 9.8 % Normal 1.7-12.0 [facility] Comment on above: Performed By: #### C BC #### [facility] [address] [place] [address] Dr. Ember Teague NEUT # 3.2 103/ul Normal 1.4-6.5 [facility] Comment on above: Performed By: #### C BC #### [facility] [address] [place] [address] Dr. Ember Teague Neutrophils/100 WBC (Bld) 53.8 % Normal 43.0-75.0 [facility] Comment on above: Performed By: #### C BC #### [facility] [address] [place] [address] Dr. Ember Teague Platelet mean volume (Bld) [Entitic vol] 10.0 fL Normal 9.5-13.5 [facility] Comment on above: Performed By: #### C BC #### [facility] [address] [place] [address] Dr. Ember Teague PLT 194 103/ul Normal 150-450 [facility] Comment on above: Performed By: #### C BC #### [facility] [address] [place] [address] Dr. Ember Teague RBC 3.09 106/ul Critically low 4.20-5.40 [facility] Comment on above: Performed By: #### C BC #### [facility] [address] [place] [address] Dr. Ember Teague WBC 6.0 103/ul Normal 4.0-11.0 [facility] Comment on above: Performed By: #### C BC #### [facility] [address] [place] [address] Dr. Ember Teague PTH INTACTon 06-26-2022 PTH, Intact 39 pg/mL Normal 15-65 [facility] Comment on above: Performed By: #### P THINT #### [facility] [address] [place] [address] Dr. Ember Teague CBC AUTO DIFFon 06-25-2022 BASO # 0.1 103/ul Normal 0.0-0.1 [facility] Comment on above: Performed By: #### C VDTBH #### [facility] [address] [place] [address] Dr. Ember Teague Basophils/100 WBC (Bld) 0.6 % Normal 0.2-2.0 [facility] Comment on above: Performed By: #### C VDTBH #### [facility] [address] [place] [address] Dr. Ember Teague EO # 0.2 103/ul Normal 0.0-0.7 [facility] Comment on above: Performed By: #### C VDTBH #### [facility] [address] [place] [address] Dr. Ember Teague Eosinophils/100 WBC (Bld) 3.0 % Normal 0.9-7.0 [facility] Comment on above: Performed By: #### C VDTBH #### [facility] [address] [place] [address] Dr. Ember Teague Erythrocyte distribution width (RBC) [Ratio] 14.2 % Normal 11.0-15.0 [facility] Comment on above: Performed By: #### C VDTBH #### [facility] [address] [place] [address] Dr. Ember Teague Hematocrit (Bld) [Volume fraction] 30.9 % Critically low 36.0-48.0 [facility] Comment on above: Performed By: #### C VDTBH #### [facility] [address] [place] [address] Dr. Ember Teague Hemoglobin (Bld) [Mass/Vol] 10.6 g/dL Critically low 12.0-16.0 [facility] Comment on above: Performed By: #### C VDTBH #### [facility] [address] [place] [address] Dr. Ember Teague IG # 0.04 10e3/ul Critically high 0.00-0.03 [facility] Comment on above: Performed By: #### C VDTBH #### [facility] [address] [place] [address] Dr. Ember Teague IG % 0.5 % Normal 0.0-0.5 [facility] Comment on above: Performed By: #### C VDTBH #### [facility] [address] [place] [address] Dr. Ember Teague LYMPH # 2.2 103/ul Normal 1.2-3.8 [facility] Comment on above: Performed By: #### C VDTBH #### [facility] [address] [place] [address] Dr. Ember Teague Lymphocytes/100 WBC (Bld) 27.0 % Normal 20.5-60.0 [facility] Comment on above: Performed By: #### C VDTBH #### [facility] [address] [place] [address] Dr. Ember Teague MANUAL DIFF REQ NO Normal [facility] Comment on above: Performed By: #### C VDTBH #### [facility] [address] [place] [address] Dr. Ember Teague MCH (RBC) [Entitic mass] 31.2 pg Normal 26.7-34.0 [facility] Comment on above: Performed By: #### C VDTBH #### [facility] [address] [place] [address] Dr. Ember Teague MCHC (RBC) [Mass/Vol] 34.3 g/dL Normal 29.9-35.2 [facility] Comment on above: Performed By: #### C VDTBH #### [facility] [address] [place] [address] Dr. Ember Teague MCV (RBC) [Entitic vol] 90.9 fL Normal 81.0-99.0 [facility] Comment on above: Performed By: #### C VDTBH #### [facility] [address] [place] [address] Dr. Ember Teague MONO # 0.7 103/ul Normal 0.3-0.8 [facility] Comment on above: Performed By: #### C VDTBH #### [facility] [address] [place] [address] Dr. Ember Teague Monocytes/100 WBC (Bld) 9.2 % Normal 1.7-12.0 [facility] Comment on above: Performed By: #### C VDTBH #### [facility] [address] [address] [address] Ember Teague NEUT # 4.8 103/ul Normal 1.4-6.5 [facility] Comment on above: Performed By: #### C VDTBH #### [facility] [address] [address] [address] Ember Teague Neutrophils/100 WBC (Bld) 59.7 % Normal 43.0-75.0 [facility] Comment on above: Performed By: #### C VDTBH #### [facility] [address] [address] [address] Ember Teague Platelet mean volume (Bld) [Entitic vol] 9.3 fL Critically low 9.5-13.5 [facility] Comment on above: Performed By: #### C VDTBH #### [facility] [address] [place] [address] Dr. Ember Teague PLT 227 103/ul Normal 150-450 [facility] Comment on above: Performed By: #### C VDTBH #### [facility] [address] [address] [address] Ember Teague RBC 3.40 106/ul Critically low 4.20-5.40 [facility] Comment on above: Performed By: #### C VDTBH #### [facility] [address] [place] [address] Dr. Ember Teague WBC 8.0 103/ul Normal 4.0-11.0 [facility] Comment on above: Performed By: #### C VDTBH #### [facility] [address] [place] [address] Dr. Ember Teague MRI LSPINE WO CONon [...] mild-moderate compression fracture. Electronically authenticated by: YANET HEURTA Date: 2022-06-25 08:45 Normal [facility] RENAL FUNCTION PANELon 06-25 Albumin [Mass/Vol] 3.9 g/dL Normal 3.4-5.0 [facility] Comment on above: Performed By: #### P THINT #### [facility] [address] [address] [address] Ember Teague Calcium [Mass/Vol] 9.5 mg/dL Normal 8.5-10.1 [facility] Comment on above: Performed By: #### P THINT #### [facility] [address] [address] [address] Ember Teague Chloride [Moles/Vol] 102 mmol/L Normal 98-107 [facility] Comment on above: Performed By: #### P THINT #### [facility] [address] [address] [address] Ember Teague CO2 [Moles/Vol] 23.8 mmol/L Normal 21.0-32.0 [facility] Comment on above: Performed By: #### P THINT #### [facility] [address] [address] [address] Ember Teague Creatinine [Mass/Vol] 1.75 mg/dL Critically high 0.55-1.02 [facility] Comment on above: Performed By: #### P THINT #### [facility] [address] [address] [address] Ember Teague EGFR-AF JAPANESE 34 mL/min/1.73m2 Critically low >=60 [facility] Comment on above: Performed By: #### P THINT #### [facility] [address] [address] [address] Ember Teague EGFR-NON AF JAPANESE 28 mL/min/1.73m2 Critically low >=60 [facility] Comment on above: Performed By: #### P THINT #### [facility] [address] [address] [address] Ember Teague Glucose [Mass/Vol] 199 mg/dL Critically high 74-106 [facility] Comment on above: Performed By: #### P THINT #### [facility] [address] [address] [address] Ember Teague Phosphate [Mass/Vol] 4.3 mg/dL Normal 2.6-4.7 [facility] Comment on above: Performed By: #### P THINT #### [facility] [address] [address] [address] Ember Teague Potassium [Moles/Vol] 4.9 mmol/L Normal 3.5-5.1 [facility] Comment on above: Performed By: #### P THINT #### [facility] [address] [address] [address] Ember Teague Sodium [Moles/Vol] 135 mmol/L Critically low 136-[address] [facility] Comment on above: Performed By: #### P THINT #### [facility] [address] [place] [address] Dr. Ember Teague Urea nitrogen [Mass/Vol] 34.0 mg/dL Critically high 7.0-18.0 [facility] Comment on above: Performed By: #### P THINT #### [facility] [address] [place] [address] Dr. Ember Teague VITAMIN D 25 OHon 06-25-2022 VIT D 25-OH 40.6 ng/mL Normal [facility] Comment on above: Performed By: #### P THINT #### [facility] [address] [place] [address] Dr. Ember Teague VIT D RANGES SEE BELOW Normal [facility] Comment on above: Result Comment: <20 ng/mL Vit D deficient 20 - <30 ng/mL Vit D insufficient 30 - 100 ng/mL Vit D sufficient >100 ng/mL Potential Toxicity Performed By: #### P THINT #### [facility] [address] [place] [address] Dr. Ember Teague Covid-19 PCR (CVDTBH)on 06-07 SARS-CoV-2 (COVID-19) RNA ALEXX+probe Ql (Unsp spec) Not detected Normal NOT DETECTED [facility] Comment on above: Result Comment: This test is not yet approved or cleared by the [place] FDA. When there are no FDA-approved or cleared tests available, and other criteria are met, FDA can make tests available under an emergency access mechanism called an Emergency Use Authorization (EUA). The EUA for this test is supported by the [place] of Health and Human Service's (HHS's) declaration [...] SARS-CoV-2. Performed By: #### C VDTBH #### [facility] [address] [place] [address] LSPINE WO CONon [...] HUERTA Date: 2022-06-01 18:02 Normal [facility] XR LSPINE MIN 4 VIEWSon [...] YANET HUERTA Date: 2022-05-21 15:25 Normal [facility] PTH INTACTon 05-03-2022 PTH, Intact 60 pg/mL Normal 15-65 [facility] Comment on above: Performed By: #### C VDTBH #### [facility] [address] [place] [address] [address] Ember Teague VIT D 25-OH LABCORPon 2021 Vitamin D, 25-Hydroxy 26.1 ng/mL Critically low 30.0-100.0 [facility] Comment on above: Result Comment: Sara min D deficiency has been defined by the [place] [employer] and an Endocrine Society practice guideline as a level of serum 25-OH vitamin D less than 20 ng/mL (1,2). The Endocrine Society went on to further define vitamin D insufficiency as a level between 21 and 29 ng/mL (2). 1. IOM ([place] of [employer]). 2010. Dietary reference intakes for calcium and D. [place]: The National Academies Press. 2. Sherice MF, Wendy WILSON, Huan ZHONG, et al. Evaluation, treatment, and prevention of vitamin D deficiency: an Endocrine Society clinical practice guideline. JCEM. 2010; 96(7):1911-30. Performed By: #### R ENAL #### [facility] [address] [place] [address] Dr. Ember Teague FERRITINon 05-02-2022 Ferritin [Mass/Vol] 590.0 ng/mL Critically high 8.0-252.0 [facility] Comment on above: Performed By: #### R ENAL #### [facility] [address] [place] [address] [address] Ember Teague HEMOGRAM AND PLATELon 2021 Hematocrit (Bld) [Volume fraction] 28.4 % Critically low 36.0-48.0 [facility] Comment on above: Performed By: #### C VDTBH #### [facility] [address] [place] [address] [address] Ember Teague Hemoglobin (Bld) [Mass/Vol] 9.6 g/dL Critically low 12.0-16.0 [facility] Comment on above: Performed By: #### C VDTBH #### [facility] [address] [place] [address] Dr. Ember Teague MCH (RBC) [Entitic mass] 31.0 pg Normal 26.7-34.0 [facility] Comment on above: Performed By: #### C VDTBH #### [facility] [address] [place] [address] Dr. Ember Teague MCHC (RBC) [Mass/Vol] 33.8 g/dL Normal 29.9-35.2 [facility] Comment on above: Performed By: #### C VDTBH #### [facility] [address] [place] [address] Dr. Ember Teague MCV (RBC) [Entitic vol] 91.6 fL Normal 81.0-99.0 [facility] Comment on above: Performed By: #### C VDTBH #### [facility] [address] [place] [address] Dr. Ember Teague PLT 189 103/ul Normal 150-450 [facility] Comment on above: Performed By: #### C VDTBH #### [facility] [address] [place] [address] Dr. Ember Teague RBC 3.10 106/ul Critically low 4.20-5.40 [facility] Comment on above: Performed By: #### C VDTBH #### [facility] [address] [place] [address] Dr. Ember Teague WBC 6.2 103/ul Normal 4.0-11.0 [facility] Comment on above: Performed By: #### C VDTBH #### [facility] [address] [place] [address] Dr. Ember Teague IRON AND TIBCon 05-02-2022 % SATURATION 34.3 % Normal [facility] Comment on above: Performed By: #### R ENAL #### [facility] [address] [place] [address] Dr. Ember Teague Iron [Mass/Vol] 69.0 ug/dL Normal 50.0-170.0 [facility] Comment on above: Performed By: #### R ENAL #### [facility] [address] [place] [address] Dr. Ember Teague TIBC DIRECT 201.0 ug/dL Critically low 250.0-450.0 [facility] Comment on above: Performed By: #### R ENAL #### [facility] [address] [place] [address] Dr. Ember Teague MAGNESIUMon 05-02-2022 Magnesium [Mass/Vol] 1.7 mg/dL Critically low 1.8-2.4 [facility] Comment on above: Performed By: #### C VDTBH #### [facility] [address] [place] [address] Dr. Ember Teague RENAL FUNCTION PANELon 05-02 Albumin [Mass/Vol] 3.6 g/dL Normal 3.4-5.0 [facility] Comment on above: Performed By: #### C VDTBH #### [facility] [address] [place] [address] Dr. Ember Teague Calcium [Mass/Vol] 9.2 mg/dL Normal 8.5-10.1 [facility] Comment on above: Performed By: #### C VDTBH #### [facility] [address] [place] [address] Dr. Ember Teague Chloride [Moles/Vol] 107 mmol/L Normal 98-107 [facility] Comment on above: Performed By: #### C VDTBH #### [facility] [address] [place] [address] Dr. Ember Teague CO2 [Moles/Vol] 21.2 mmol/L Normal 21.0-32.0 [facility] Comment on above: Performed By: #### C VDTBH #### [facility] [address] [place] [address] Dr. Ember Teague Creatinine [Mass/Vol] 1.75 mg/dL Critically high 0.55-1.02 [facility] Comment on above: Performed By: #### C VDTBH #### [facility] [address] [place] [address] [address] Ember Teague EGFR-AF JAPANESE 34 mL/min/1.73m2 Critically low >=60 [facility] Comment on above: Performed By: #### C VDTBH #### [facility] [address] [place] [address] [address] Ember Teague EGFR-NON AF JAPANESE 28 mL/min/1.73m2 Critically low >=60 [facility] Comment on above: Performed By: #### C VDTBH #### [facility] [address] [place] [address] [address] Ember Teague Glucose [Mass/Vol] 193 mg/dL Critically high 74-106 [facility] Comment on above: Performed By: #### C VDTBH #### [facility] [address] [place] [address] [address] Ember Teague Phosphate [Mass/Vol] 4.2 mg/dL Normal 2.6-4.7 [facility] Comment on above: Performed By: #### C VDTBH #### [facility] [address] [place] [address] [address] Emebr Teague Potassium [Moles/Vol] 5.1 mmol/L Normal 3.5-5.1 [facility] Comment on above: Performed By: #### C VDTBH #### [facility] [address] [place] [address] [address] Ember Teague Sodium [Moles/Vol] 139 mmol/L Normal 136-145 [facility] Comment on above: Performed By: #### C VDTBH #### [facility] [address] [place] [address] [address] Ember Teague Urea nitrogen [Mass/Vol] 34.0 mg/dL Critically high 7.0-18.0 [facility] Comment on above: Performed By: #### C VDTBH #### [facility] [address] [place] [address] [address] Ember Teague UA RANDOM W/MICROSCOPICon BACTERIA SMALL Abnormal NONE SEEN [facility] Comment on above: Performed By: #### C VDTBH #### [facility] [address] [place] [address] Dr. Ember Teague Bilirubin Ql (U) Negative Normal NEGATIVE [facility] Comment on above: Performed By: #### C VDTBH #### [facility] [address] [place] [address] [address] Ember Teague CAST NONE SEEN Normal NONE SEEN [facility] Comment on above: Performed By: #### C VDTBH #### [facility] [address] [place] [address] Dr. Ember Teague Clarity (U) CLEAR Normal CLEAR [facility] Comment on above: Performed By: #### C VDTBH #### [facility] [address] [place] [address] Dr. Ember Teague Color (U) LT. YELLOW Normal YELLOW [facility] Comment on above: Performed By: #### C VDTBH #### [facility] [address] [place] [address] Dr. Ember Teague Crystals LM Nom (Urine sed) NONE SEEN Normal NONE SEEN [facility] Comment on above: Performed By: #### C VDTBH #### [facility] [address] [place] [address] Dr. Ember Teague Epithelial cells LM Ql (Urine sed) MODERATE Abnormal NONE SEEN /RARE [facility] Comment on above: Performed By: #### C VDTBH #### [facility] [address] [place] [address] Dr. Ember Teague Glucose Ql (U) Negative Normal NEGATIVE [facility] Comment on above: Performed By: #### C VDTBH #### [facility] [address] [place] [address] Dr. Ember Teague Hemoglobin Ql (U) Negative Normal NEGATIVE [facility] Comment on above: Performed By: #### C VDTBH #### [facility] [address] [place] [address] Dr. Ember Teague Ketones Ql (U) Negative Normal NEGATIVE [facility] Comment on above: Performed By: #### C VDTBH #### [facility] [address] [place] [address] Dr. Ember Teague LEUKOCYTES TRACE Abnormal NEGATIVE [facility] Comment on above: Performed By: #### C VDTBH #### [facility] [address] [place] [address] Dr. Ember Teague MUCOUS NONE SEEN Normal NONE SEEN [facility] Comment on above: Performed By: #### C VDTBH #### [facility] [address] [place] [address] Dr. Ember Teague Nitrite Ql (U) Negative Normal NEGATIVE [facility] Comment on above: Performed By: #### C VDTBH #### [facility] [address] [place] [address] Dr. Ember Teague pH (U) 5.0 [pH] Normal 5-9 [facility] Comment on above: Performed By: #### C VDTBH #### [facility] [address] [place] [address] Dr. Ember Teague RBC NONE SEEN Abnormal 0-2 [facility] Comment on above: Performed By: #### C VDTBH #### [facility] [address] [place] [address] Dr. Ember Teague SPEC GRAVITY 1.015 Normal 1.005-<=1.025 [facility] Comment on above: Performed By: #### C VDTBH #### [facility] [address] [place] [address] Dr. Ember Teague UA PROTEIN TRACE Normal NEGATIVE/ TRACE [facility] Comment on above: Performed By: #### C VDTBH #### [facility] [address] [place] [address] Dr. Ember Teague Urobilinogen Qn (U) 0.2 {Esau'U}/dL Normal 0.2 - 1. 0 [facility] Comment on above: Performed By: #### C VDTBH #### [facility] [address] [place] [address] Dr. Ember Teague WBC 0-2 Abnormal NONE SEEN [facility] Comment on above: Performed By: #### C VDTBH #### [facility] [address] [place] [address] Dr. Ember Teague URIC ACID SERUMon 05-02-2022 Urate [Mass/Vol] 4.4 mg/dL Normal 2.6-6.0 [facility] Comment on above: Performed By: #### C BC #### [facility] [address] [place] [address] Dr. Ember Teague URINE T PROTEIN CREAT RATIOo n 05-02-2022 Protein (U) [Mass/Vol] 33.7 mg/dL Critically high <=12.0 [facility] Comment on above: Performed By: #### C VDTBH #### [facility] [address] [place] [address] Dr. Ember Teague UR PROT CREAT RAT 0.69 Normal [facility] Comment on above: Performed By: #### C VDTBH #### [facility] [address] [place] [address] Dr. Ember Teague URINE CREAT 48.93 mg/dL Normal 20.00-300.00 [facility] Comment on above: Performed By: #### C VDTBH #### [facility] [address] [place] [address] Dr. Ember Teague Vital Signs Date Time Vital Sign Value Performing Clinician Facility 11-18-2023 10:00-0500 Body height 168.91 cm Ron Doreen Other [facility] Other 11-18-2023 10:00-0500 Body mass index (BMI) [Ratio] 29.85 kg/m2 Ron Doreen Other [facility] Other 11-18-2023 10:00-0500 Body temperature 97.3 [degF] Ron Doreen Other [facility] Other 11-18-2023 10:00-0500 Body weight 85.19 kg Ron Doreen Other [facility] Other 11-18-2023 10:00-0500 Diastolic blood pressure 79 mm[Hg] Ron Doreen Other [facility] Other 11-18-2023 10:00-0500 Respiratory rate 18 /min Ron Doreen Other [facility] Other 11-18-2023 10:00-0500 SaO2% (BldA) [Mass fraction] 98 % Ron Doreen Other [facility] Other 11-18-2023 10:00-0500 Systolic blood pressure 149 mm[Hg] Ron Doreen Other [facility] Other 11-04-2023 11:00-0500 Body height 168.91 cm Ron Doreen Other [facility] Other 11-04-2023 11:00-0500 Body mass index (BMI) [Ratio] 30.17 kg/m2 Ron Doreen Other [facility] Other 11-04-2023 11:00-0500 Body temperature 97.6 [degF] Ron Doreen Other [facility] Other 11-04-2023 11:00-0500 Body weight 86.09 kg Ron Doreen Other [facility] Other 11-04-2023 11:00-0500 Diastolic blood pressure 76 mm[Hg] Ron Doreen Other [facility] Other 11-04-2023 11:00-0500 Respiratory rate 18 /min Ron Doreen Other [facility] Other 11-04-2023 11:00-0500 SaO2% (BldA) [Mass fraction] 98 % Ron Doreen Other [facility] Other 11-04-2023 11:00-0500 Systolic blood pressure 153 mm[Hg] Ron Doreen Other [facility] Other 10-15-2023 13:00-0500 Body height 168.91 cm Ron Doreen Other [facility] Other 10-15-2023 13:00-0500 Body mass index (BMI) [Ratio] 29.82 kg/m2 Ron Doreen Other [facility] Other 10-15-2023 13:00-0500 Body temperature 97.5 [degF] Ron Doreen Other [facility] Other 10-15-2023 13:00-0500 Body weight 85.1 kg Ron Doreen Other [facility] Other 10-15-2023 13:00-0500 Diastolic blood pressure 68 mm[Hg] Ron Doreen Other [facility] Other 10-15-2023 13:00-0500 Respiratory rate 18 /min Ron Doreen Other [facility] Other 10-15-2023 13:00-0500 SaO2% (BldA) [Mass fraction] 98 % Ron Doreen Other [facility] Other 10-15-2023 13:00-0500 Systolic blood pressure 113 mm[Hg] Ron Doreen Other [facility] Other 08-27-2023 09:40-0500 Body height 168.91 cm Aziz Bakhous Other [facility] Other 08-27-2023 09:40-0500 Body mass index (BMI) [Ratio] 30.2 kg/m2 Aziz Bakhous Other [facility] Other 08-27-2023 09:40-0500 Body temperature 96.7 [degF] Aziz Bakhous Other [facility] Other 08-27-2023 09:40-0500 Body weight 86.18 kg Aziz Bakhous Other [facility] Other 08-27-2023 09:40-0500 Diastolic blood pressure 72 mm[Hg] Aziz Bakhous Other [facility] Other 08-27-2023 09:40-0500 Respiratory rate 18 /min Azduc Bakhous Other [facility] Other 08-27-2023 09:40-0500 SaO2% (BldA) [Mass fraction] 98 % Aziz Bakhous Other [facility] Other 08-27-2023 09:40-0500 Systolic blood pressure 153 mm[Hg] Aziz Bakhous Other [facility] Other 08-15-2023 10:20-0500 Body height 168.91 cm Ron Doreen Other [facility] Other 08-15-2023 10:20-0500 Body mass index (BMI) [Ratio] 30.2 kg/m2 Ron Doreen Other [facility] Other 08-15-2023 10:20-0500 Body temperature 97.1 [degF] Ron Doreen Other [facility] Other 08-15-2023 10:20-0500 Body weight 86.18 kg Ron Doreen Other [facility] Other 08-15-2023 10:20-0500 Diastolic blood pressure 79 mm[Hg] Ron Doreen Other [facility] Other 08-15-2023 10:20-0500 Respiratory rate 18 /min Ron Doreen Other [facility] Other 08-15-2023 10:20-0500 SaO2% (BldA) [Mass fraction] 98 % Ron Doreen Other [facility] Other 08-15-2023 10:20-0500 Systolic blood pressure 164 mm[Hg] Ron Doreen Other [facility] Other 08-13-2023 15:40-0500 Body height 168.91 cm Ron Doreen Other [facility] Other 08-13-2023 15:40-0500 Body mass index (BMI) [Ratio] 30.24 kg/m2 Ron Doreen Other [facility] Other 08-13-2023 15:40-0500 Body temperature 97.2 [degF] Ron Doreen Other [facility] Other 08-13-2023 15:40-0500 Body weight 86.27 kg Ron Doreen Other [facility] Other 08-13-2023 15:40-0500 Diastolic blood pressure 79 mm[Hg] Ron Doreen Other [facility] Other 08-13-2023 15:40-0500 Respiratory rate 18 /min Ron Doreen Other [facility] Other 08-13-2023 15:40-0500 SaO2% (BldA) [Mass fraction] 98 % Ron Doreen Other [facility] Other 08-13-2023 15:40-0500 Systolic blood pressure 186 mm[Hg] Ron Doreen Other [facility] Other 08-01-2023 13:00-0400 Body height 168.91 cm Ron Doreen Other [facility] Other 08-01-2023 13:00-0400 Body mass index (BMI) [Ratio] 30.55 kg/m2 Ron Doreen Other [facility] Other 08-01-2023 13:00-0400 Body temperature 97.8 [degF] Ron Doreen Other [facility] Other 08-01-2023 13:00-0400 Body weight 87.18 kg Ron Doreen Other [facility] Other 08-01-2023 13:00-0400 Diastolic blood pressure 72 mm[Hg] Ron Doreen Other [facility] Other 08-01-2023 13:00-0400 Respiratory rate 18 /min Ron Doreen Other [facility] Other 08-01-2023 13:00-0400 SaO2% (BldA) [Mass fraction] 98 % Ron Doreen Other [facility] Other 08-01-2023 13:00-0400 Systolic blood pressure 160 mm[Hg] Ron Doreen Other [facility] Other 06-24-2023 11:40-0400 Body height 168.91 cm Ron Doreen Other [facility] Other 06-24-2023 11:40-0400 Body mass index (BMI) [Ratio] 29.89 kg/m2 Ron Doreen Other [facility] Other 06-24-2023 11:40-0400 Body temperature 97.3 [degF] Ron Doreen Other [facility] Other 06-24-2023 11:40-0400 Body weight 85.28 kg Ron Doreen Other [facility] Other 06-24-2023 11:40-0400 Diastolic blood pressure 75 mm[Hg] Ron Doreen Other [facility] Other 06-24-2023 11:40-0400 Respiratory rate 18 /min Ron Doreen Other [facility] Other 06-24-2023 11:40-0400 SaO2% (BldA) [Mass fraction] 99 % Ron Doreen Other [facility] Other 06-24-2023 11:40-0400 Systolic blood pressure 129 mm[Hg] Ron Doreen Other [facility] Other 06-06-2023 15:20-0400 Body height 168.91 cm Ron Doreen Other [facility] Other 06-06-2023 15:20-0400 Body mass index (BMI) [Ratio] 29.92 kg/m2 Ron Doreen Other [facility] Other 06-06-2023 15:20-0400 Body temperature 96.5 [degF] Ron Doreen Other [facility] Other 06-06-2023 15:20-0400 Body weight 85.37 kg Ron Doreen Other [facility] Other 06-06-2023 15:20-0400 Diastolic blood pressure 49 mm[Hg] Ron Doreen Other [facility] Other 06-06-2023 15:20-0400 Respiratory rate 18 /min Ron Doreen Other [facility] Other 06-06-2023 15:20-0400 SaO2% (BldA) [Mass fraction] 99 % Ron Doreen Other [facility] Other 06-06-2023 15:20-0400 Systolic blood pressure 128 mm[Hg] Ron Doreen Other [facility] Other 04-30-2023 11:40-0400 Body height 168.91 cm Ron Doreen Other [facility] Other 04-30-2023 11:40-0400 Body mass index (BMI) [Ratio] 30.52 kg/m2 Ron Doreen Other [facility] Other 04-30-2023 11:40-0400 Body temperature 96.9 [degF] Ron Doreen Other [facility] Other 04-30-2023 11:40-0400 Body weight 87.09 kg Ron Doreen Other [facility] Other 04-30-2023 11:40-0400 Diastolic blood pressure 80 mm[Hg] Ron Doreen Other [facility] Other 04-30-2023 11:40-0400 Respiratory rate 18 /min Ron Doreen Other [facility] Other 04-30-2023 11:40-0400 SaO2% (BldA) [Mass fraction] 98 % Ron Doreen Other [facility] Other 04-30-2023 11:40-0400 Systolic blood pressure 150 mm[Hg] Ron Doreen Other [facility] Other 04-06-2023 09:00-0400 Body height 168.91 cm Ron Doreen Other [facility] Other 04-06-2023 09:00-0400 Body mass index (BMI) [Ratio] 30.36 kg/m2 Ron Doreen Other [facility] Other 04-06-2023 09:00-0400 Body weight 86.64 kg Ron Doreen Other [facility] Other 04-06-2023 09:00-0400 Diastolic blood pressure 54 mm[Hg] Ron Doreen Other [facility] Other 04-06-2023 09:00-0400 Respiratory rate 18 /min Ron Doreen Other [facility] Other 04-06-2023 09:00-0400 SaO2% (BldA) [Mass fraction] 98 % Ron Doreen Other [facility] Other 04-06-2023 09:00-0400 Systolic blood pressure 144 mm[Hg] Ron Doreen Other [facility] Other 04-02-2023 14:40-0400 Body height 168.91 cm Ron Doreen Other [facility] Other 04-02-2023 14:40-0400 Body mass index (BMI) [Ratio] 30.55 kg/m2 Ron Doreen Other [facility] Other 04-02-2023 14:40-0400 Body temperature 97 [degF] Ron Doreen Other [facility] Other 04-02-2023 14:40-0400 Body weight 87.18 kg Ron Doreen Other [facility] Other 04-02-2023 14:40-0400 Diastolic blood pressure 76 mm[Hg] Ron Doreen Other [facility] Other 04-02-2023 14:40-0400 Respiratory rate 18 /min Ron Doreen Other [facility] Other 04-02-2023 14:40-0400 SaO2% (BldA) [Mass fraction] 98 % Ron Doreen Other [facility] Other 04-02-2023 14:40-0400 Systolic blood pressure 183 mm[Hg] Ron Doreen Other [facility] Other 03-07-2023 09:20-0400 Body height 168.91 cm Ron Doreen Other [facility] Other 03-07-2023 09:20-0400 Body mass index (BMI) [Ratio] 30.52 kg/m2 Ron Doreen Other [facility] Other 03-07-2023 09:20-0400 Body temperature 97.1 [degF] Ron Doreen Other [facility] Other 03-07-2023 09:20-0400 Body weight 87.09 kg Ron Doreen Other [facility] Other 03-07-2023 09:20-0400 Diastolic blood pressure 72 mm[Hg] Ron Doreen Other [facility] Other 03-07-2023 09:20-0400 Respiratory rate 18 /min Ron Doreen Other [facility] Other 03-07-2023 09:20-0400 SaO2% (BldA) [Mass fraction] 97 % Ron Doreen Other [facility] Other 03-07-2023 09:20-0400 Systolic blood pressure 130 mm[Hg] Ron Doreen Other [facility] Other 12-20-2022 13:20-0400 Body height 168.91 cm Ron Doreen Other [facility] Other 12-20-2022 13:20-0400 Body mass index (BMI) [Ratio] 30.68 kg/m2 Ron Doreen Other [facility] Other 12-20-2022 13:20-0400 Body temperature 97.1 [degF] Ron Doreen Other [facility] Other 12-20-2022 13:20-0400 Body weight 87.54 kg Ron Doreen Other [facility] Other 12-20-2022 13:20-0400 Diastolic blood pressure 72 mm[Hg] Ron Doreen Other [facility] Other 12-20-2022 13:20-0400 Respiratory rate 18 /min Ron Doreen Other [facility] Other 12-20-2022 13:20-0400 SaO2% (BldA) [Mass fraction] 99 % Ron Doreen Other [facility] Other 12-20-2022 13:20-0400 Systolic blood pressure 139 mm[Hg] Ron Doreen Other [facility] Other 11-05-2022 14:00-0500 Body height 168.91 cm Ron Doreen Other [facility] Other 11-05-2022 14:00-0500 Body mass index (BMI) [Ratio] 30.59 kg/m2 Ron Doreen Other [facility] Other 11-05-2022 14:00-0500 Body temperature 96.8 [degF] Ron Doreen Other [facility] Other 11-05-2022 14:00-0500 Body weight 87.27 kg Ron Doreen Other [facility] Other 11-05-2022 14:00-0500 Diastolic blood pressure 72 mm[Hg] Ron Doreen Other [facility] Other 11-05-2022 14:00-0500 Respiratory rate 18 /min Ron Doreen Other [facility] Other 11-05-2022 14:00-0500 SaO2% (BldA) [Mass fraction] 98 % Ron Doreen Other [facility] Other 11-05-2022 14:00-0500 Systolic blood pressure 157 mm[Hg] Ron Doreen Other [facility] Other 09-27-2022 16:00-0500 Body height 168.91 cm Jana Monson Other [facility] Other 09-27-2022 16:00-0500 Body mass index (BMI) [Ratio] 30.55 kg/m2 Jana Monson Other [facility] Other 09-27-2022 16:00-0500 Body temperature 96.8 [degF] Jana Monson Other [facility] Other 09-27-2022 16:00-0500 Body weight 87.18 kg Jana Monson Other [facility] Other 09-27-2022 16:00-0500 Diastolic blood pressure 73 mm[Hg] Jana Monson Other [facility] Other 09-27-2022 16:00-0500 Respiratory rate 18 /min Jana Monson Other [facility] Other 09-27-2022 16:00-0500 SaO2% (BldA) [Mass fraction] 98 % Jana Monson Other [facility] Other 09-27-2022 16:00-0500 Systolic blood pressure 159 mm[Hg] Jana Monson Other [facility] Other 08-22-2022 12:00-0500 Body height 168.91 cm Ron Doreen Other [facility] Other 08-22-2022 12:00-0500 Body mass index (BMI) [Ratio] 30.65 kg/m2 Ron Doreen Other [facility] Other 08-22-2022 12:00-0500 Body temperature 96.9 [degF] Ron Doreen Other [facility] Other 08-22-2022 12:00-0500 Body weight 87.45 kg Ron Doreen Other [facility] Other 08-22-2022 12:00-0500 Diastolic blood pressure 75 mm[Hg] Ron Doreen Other [facility] Other 08-22-2022 12:00-0500 Respiratory rate 18 /min Ron Doreen Other [facility] Other 08-22-2022 12:00-0500 SaO2% (BldA) [Mass fraction] 96 % Ron Doreen Other [facility] Other 08-22-2022 12:00-0500 Systolic blood pressure 121 mm[Hg] Ron Doreen Other [facility] Other 05-08-2022 10:20-0400 Body height 168.91 cm Ron Doreen Other [facility] Other 05-08-2022 10:20-0400 Body mass index (BMI) [Ratio] 31.54 kg/m2 Ron Doreen Other [facility] Other 05-08-2022 10:20-0400 Body temperature 97.6 [degF] Ron Doreen Other [facility] Other 05-08-2022 10:20-0400 Body weight 89.99 kg Ron Doreen Other [facility] Other 08-02-2022 10:20-0400 Diastolic blood pressure 68 mm[Hg] Ron Doreen Other [facility] Other 05-08-2022 10:20-0400 Respiratory rate 18 /min Ron Doreen Other [facility] Other 05-08-2022 10:20-0400 SaO2% (BldA) [Mass fraction] 98 % Ron Doreen Other [facility] Other 05-08-2022 10:20-0400 Systolic blood pressure 131 mm[Hg] Ron Doreen Other [facility] Other 01-18-2022 10:20-0400 Body height 168.91 cm Ron Doreen Other [facility] Other 01-18-2022 10:20-0400 Body mass index (BMI) [Ratio] 31 kg/m2 Ron Doreen Other [facility] Other 01-18-2022 10:20-0400 Body temperature 96.4 [degF] Ron Doreen Other [facility] Other 01-18-2022 10:20-0400 Body weight 88.45 kg Ron Doreen Other [facility] Other 01-18-2022 10:20-0400 Diastolic blood pressure 74 mm[Hg] Ron Doreen Other [facility] Other 01-18-2022 10:20-0400 Respiratory rate 18 /min Ron Doreen Other [facility] Other 01-18-2022 10:20-0400 SaO2% (BldA) [Mass fraction] 97 % Ron Doreen Other [facility] Other 01-18-2022 10:20-0400 Systolic blood pressure 170 mm[Hg] Ron Doreen Other [facility] Other Encounters Encounter Date Encounter Type Care Provider Facility Start: 05-25-2024 End: 05-25-2024 ambulatory GREG A PETITTI Not Available Start: 05-11-2024 End: 05-11-2024 ambulatory [facility] Start: 04-21-2024 End: 04-21-2024 ambulatory GREG A PETITTI Not Available Start: 04-16-2024 End: 04-16-2024 ambulatory GA CRESPO Not Available Start: 03-16-2024 End: 03-16-2024 ambulatory GREG A PETITTI Not Available Start: 02-10-2024 End: 02-10-2024 ambulatory [facility] Start: 01-17-2024 End: 01-17-2024 ambulatory [facility] Start: 01-16-2024 End: 01-16-2024 ambulatory GA CRESPO Not Available Start: 12-21-2023 Refill Luis dominique PA-C Work Phone: [facility] Comment on above: Med Refill Start: 11-28-2023 End: 11-28-2023 ambulatory GREG A PETITTI Not Available Start: 11-18-2023 End: 11-18-2023 ambulatory Ron Doreen Other [facility] Other Start: 11-18-2023 Office outpatient visit 15 minutes Ron Doreen [facility] Start: 11-05-2023 End: 11-05-2023 ambulatory GA CRESPO Not Available Start: 11-04-2023 (INJECTION) INJECTION Ron Doreen [facility] Start: 11-04-2023 End: 11-04-2023 ambulatory Ron Doreen Other [facility] Other Start: 10-22-2023 End: 10-22-2023 ambulatory GA CRESPO Not Available Start: 10-15-2023 End: 10-15-2023 ambulatory Ron Doreen Other [facility] Other Start: 10-15-2023 Office outpatient visit 15 minutes Ron Doreen [facility] Start: 10-08-2023 End: 10-08-2023 ambulatory Aziz Bakhous Other [facility] Other Start: 10-08-2023 Telephone encounter Aziz Bakhous [facility] Start: 09-15-2023 End: 09-15-2023 ambulatory Ron Doreen Other [facility] Other Start: 09-15-2023 Telephone encounter Ron Doreen [facility] Start: 09-09-2023 End: 09-09-2023 ambulatory Ron Doreen Other [facility] Other Start: 09-09-2023 Telephone encounter Ron Doreen [facility] Start: 08-27-2023 (INJECTION) INJECTION Aziz Bakhous [facility] Start: 08-27-2023 End: 08-27-2023 ambulatory Aziz Bakhous Other [facility] Other Start: 08-15-2023 (INJECTION) INJECTION Ron Doreen [facility] Start: 08-15-2023 End: 08-15-2023 ambulatory Ron Doreen Other [facility] Other Start: 08-13-2023 (INJECTION) INJECTION Ron Doreen [facility] Start: 08-13-2023 End: 08-13-2023 ambulatory Ron Doreen Other [facility] Other Start: 08-01-2023 End: 08-01-2023 ambulatory Ron Doreen Other [facility] Other Start: 08-01-2023 Office outpatient visit 15 minutes Ron Doreen [facility] Start: 06-24-2023 End: 06-24-2023 ambulatory Ron Doreen Other [facility] Other Start: 06-24-2023 Office outpatient visit 10 minutes Ron Doreen [facility] Start: 06-06-2023 End: 06-06-2023 ambulatory Ron Doreen Other [facility] Other Start: 06-06-2023 Office outpatient visit 15 minutes Ron Doreen [facility] Start: 04-30-2023 End: 04-30-2023 ambulatory Ron Doreen Other [facility] Other Start: 04-30-2023 Office outpatient visit 15 minutes Ron Doreen [facility] Start: 04-06-2023 (INJECTION) INJECTION Ron Doreen [facility] Start: 04-06-2023 End: 04-06-2023 ambulatory Ron Doreen Other [facility] Other Start: 04-06-2023 Telephone encounter Ron Doreen [facility] Start: 04-02-2023 End: 04-02-2023 ambulatory Ron Doreen Other [facility] Other Start: 04-02-2023 Office outpatient visit 15 minutes Ron Doreen [facility] Start: 04-02-2023 Telephone encounter Ron Doreen [facility] Start: 03-07-2023 End: 03-07-2023 ambulatory Ron Doreen Other [facility] Other Start: 03-07-2023 Office outpatient visit 15 minutes Ron Doreen [facility] Start: 01-22-2023 End: 01-23-2023 ambulatory RON DOREEN Facility:[facility] Start: 12-20-2022 End: 12-20-2022 ambulatory Ron Doreen Other [facility] Other Start: 12-20-2022 Office outpatient visit 15 minutes Ron Doreen [facility] Start: 12-17-2022 End: 12-18-[address] DHRUV RUBI . Facility:[facility] Start: 12-10-2022 End: 12-11-2022 ambulatory RON DOREEN Facility:[facility] Start: 11-20-2022 End: 11-21-[address] BENI APARICIO Facility:[facility] Start: 11-05-2022 End: 11-05-2022 ambulatory Ron Doreen Other [facility] Other Start: 11-05-2022 Office outpatient visit 15 minutes Ron Doreen [facility] Start: 10-29-2022 End: 10-30-[address] JANA MONSON Facility:[facility] Start: 10-24-2022 End: 10-24-[address] LILLIAN ACOSTA . Facility:[facility] Start: 10-24-2022 End: 10-25-[address] DHRUV RUBI . Facility:[facility] Start: 09-27-2022 End: 09-27-2022 ambulatory Jana Monson Other [facility] Other Start: 09-27-2022 Office outpatient visit 15 minutes Jana Monson [facility] Start: 09-18-2022 End: 09-19-2022 ambulatory RON DOREEN Facility:[facility] Start: 09-11-2022 End: 09-11-[address] DHRUV RUBI . Facility:[facility] Start: 08-22-2022 End: 08-22-2022 ambulatory Ron Doreen Other [facility] Other Start: 08-22-2022 Office outpatient visit 15 minutes Ron Doreen [facility] Start: 08-13-2022 End: 08-14-2022 ambulatory RON DOREEN Facility:[facility] Start: 06-25-2022 End: 06-26-[address] DHRUV RUBI . Facility:[facility] Start: 06-18-2022 End: 06-18-[address] DHRUV RUBI . Facility:[facility] Start: 06-01-2022 End: 06-02-[address] YANET HUERTA Facility:[facility] Start: 05-28-2022 End: 05-28-2022 ambulatory Ron Doreen Other [facility] Other Start: 05-28-2022 Telephone encounter Ron Doreen [facility] Start: 05-21-2022 End: 05-22-[address] DHRUV RUBI . Facility:[facility] Start: 05-16-2022 End: 05-16-2022 ambulatory Ron Doreen Other [facility] Other Start: 05-16-2022 Telephone encounter Ron Doreen [facility] Start: 05-10-2022 End: 05-10-2022 ambulatory Ron Doreen Other [facility] Other Start: 05-10-2022 Telephone encounter Ron Doreen [facility] Start: 05-08-2022 End: 05-08-2022 ambulatory Ron Doreen Other [facility] Other Start: 05-08-2022 Office outpatient visit 25 minutes Ron Doreen [facility] Start: 05-02-2022 End: 05-03-2022 ambulatory RON DOREEN Facility: Start: 04-24-2022 End: 04-24-2022 ambulatory Mary Anne Ackerman Other [facility] Other Start: 04-24-2022 Telephone encounter Mary Anne Ackerman [facility] Start: 01-18-2022 End: 01-18-2022 ambulatory Ron Doreen Other [facility] Other Start: 01-18-2022 Office outpatient visit 25 [...] 03-19-2024 Adult BMI Screening Adult BMI Screening [facility] Start: 03-19-2024 Tobacco Screening Tobacco Screening [facility] Start: 06-07-2023 COVID-19 Vaccine ( season) COVID-19 Vaccine ( season) [facility] Start: 06-07-2023 Influenza vaccination Influenza Vaccine [facility] Start: 12-28-2021 Depression Screening Depression Screening [facility] Start: 2009 Fall Risk Screening Fall Risk Screening [facility] Start: 1994 Administration of varicella zoster vaccine Zoster (Shingles) Vaccine (1 of 2) [facility] Start: 12-15-1963 DTaP,Tdap and Td Vaccines (1 - Tdap) DTaP,Tdap and Td Vaccines (1 - Tdap) [facility] Start: 1962 Adult BMI Follow Up Plan Adult BMI Follow Up Plan [facility] Start: 1944 Medicare Annual Wellness Visit Medicare Annual Wellness Visit [facility] Immunizations Immunization Date Immunization Notes Care Provider Lai montemayor 07-18-2020 Seasonal trivalent influenza vaccine, adjuvanted, preservative free Luis Kb PA-C Work Phone: [facility] 07-18-2020 influenza virus vacc ine, unspecified formulation Luis Kb PA-C Work Phone: [facility] 07-22-2019 Seasonal trivalent influenza vaccine, adjuvanted, preservative free Luis Kb PA-C Work Phone: [facility] 07-14-2018 Seasonal trivalent influenza vaccine, adjuvanted, preservative free Luis Kb PA-C Work Phone: [facility] 07-15-2017 pneumococcal conjuga te vaccine, 13 valent Luis Kb PA-C Work Phone: [facility] 07-08-2017 influenza, high dose seasonal, preservative-free Luis Kb PA-C Work Phone: [facility] 07-25-2016 influenza, high dose seasonal, preservative-free Luis Kb PA-C Work Phone: [facility] 07-11-2015 influenza, high dose seasonal, preservative-free Luis Kb PA-C Work Phone: [facility] 07-16-2014 influenza, seasonal, injectable Luis Kb PA-C Work Phone: [facility] 07-10-2013 influenza, seasonal, injectable Luis Kb PA-C Work Phone: [facility] 08-08-2012 influenza virus vacc ine, unspecified formulation Luis Kb PA-C Work Phone: [facility] 08-08-2012 pneumococcal polysaccharide vaccine, 23 valent Luis Kb PA-C Work Phone: [facility] 07-11-2011 influenza virus vacc ine, unspecified formulation Luis Kb PA-C Work Phone: [facility] 08-15-2010 influenza virus vacc ine, unspecified formulation Luis Kb PA-C Work Phone: [facility] 07-26-2009 influenza virus vacc ine, unspecified formulation Luis Kb PA-C Work Phone: [facility] 08-04-2008 influenza virus vacc ine, unspecified formulation Luis Kb PA-C Work Phone: [facility] 08-13-2007 influenza virus vacc ine, unspecified formulation Luis Kb PA-C Work Phone: [facility] 08-11-2004 influenza virus vacc ine, unspecified formulation Luis Kb PA-C Work Phone: [facility] 08-09-2003 influenza virus vacc ine, unspecified formulation Luis Kb PA-C Work Phone: [facility] 08-09-2003 pneumococcal polysaccharide vaccine, 23 valent Luis Kb PA-C Work Phone: [facility] Payers Date Payer Category Payer Medicare [employer] MEDICARE A ETNA MEDICARE PLAN (HMO) [id number] 2021-Present [phone] [address] [place] [address] [id number] 1960 Medicare [id number] [id number] 1944 Unknown [id number] 2.16.840.1.881405.3.579.2.593 1944 Unknown [id number] 2.16.840.1.977419.3.579.2.593 1944 Unknown [id number] 2.16.840.1.756535.3.579.2.593 1944 Unknown [id number] 2.16.840.1.602843.3.579.2.593 1944 Unknown [id number] 2.16.840.1.513108.3.579.2.593 1944 Unknown [id number] 2.16.840.1.725577.3.579.2.593 1944 Unknown [id number] 2.16.840.1.913710.3.579.2.593 1944 Unknown [id number] 2.16.840.1.098408.3.579.2.593 1944 Unknown [id number] 2.16.840.1.165506.3.579.2.593 1944 Unknown [id number] 2.16.840.1.866891.3.579.2.593 1944 Unknown [id number] 2.16.840.1.970148.3.579.2.593 1944 Unknown [id number] 2.16.840.1.074769.3.579.2.593 1944 Unknown [id number] 2.16.840.1.304150.3.579.2.593 1944 Unknown [id number] 2.16.840.1.506031.3.579.2.593 1944 Unknown [id number] 2.16.840.1.021869.3.579.2.593 1944 Unknown [id number] 2.16.840.1.501612.3.579.2.593 1944 Unknown [id number] 2.16.840.1.516853.3.579.2.1286 1944 Unknown [id number] 2.16.840.1.835838.3.579.2.1259 1944 Unknown [id number] 2.16.840.1.694655.3.579.2.1259 1944 Unknown [id number] 2.16.840.1.303708.3.579.2.1259 1944 Unknown [id number] 2.16.840.1.456504.3.579.2.1259 1944 Unknown [id number] 2.16.840.1.328925.3.579.2.9 1944 Unknown [id number] 2.16.840.1.628001.3.579.2.1259 1944 Unknown [id number] 2.16.840.1.179434.3.579.2.9 1944 Unknown [id number] 2.16.840.1.073203.3.579.2.1258 Unknown Social History Date Type Detail Facility Unknown if ever smoked [facility] Other Start: 12-28-2020 End: 03-19-2023 Sex Assigned At [facility] Other Start: 09-20-2022 Tobacco smoking status [facility] Ex-smoker [facility] End: 10-07-1969 History of tobacco use Current smoker [facility] End: 10-07-1969 History of tobacco use Cigarette Smoker [facility] Start: 09-20-2022 Tobacco use and exposure Smokeless tobacco non-user [facility] Start: 03-19-2023 Alcohol intake Ex-drinker (finding) [facility] Start: 12-28-2020 End: 03-19-2023 History of Social function [facility] Do you belong to any clubs or organizations such as jew groups, unions, fraternal or athletic groups, or school groups? No [facility] Are you now , , , , never or living with a partner? [facility] How hard is it for y ou to pay for the very basics like food, housing, medical care, and heating Not hard at all [facility] Do you feel stress - tense, restless, nervous, or anxious, or unable to sleep at night because your mind is troubled all the time - these days [OSQ] Not at all [facility] Start: 1945 Sex Assigned At Not on file [employer] [facility] Goals Date Patient Goal Desired Activity /State Personal health goal Comment on above: Formatting of this n ote might be different from the original. Evaluation of progress towards goal: return home with homecare and support from [facility], children and grandchildren Clinical Notes 01-18-2022 to 05-11-2024 Note Date & Type Note Facility 05-11-2024 Note [facility] Cardiology Clinic Note Chief Complaint: Patient here for follow up [facility] discharge back in February 2024. She [...] kidney disease, Coronary artery disease, Diabetes mellitus ([facility]), Hyperlipidemia, and Hypertension. Surgical History [...] ventricular gram/pressure Indications (more content not included)... [facility] 02-10-2024 Note [facility] Cardiology Clinic Note Chief Complaint: Patient here to re-establish care. She was recently admitted to [facility] for hypertension. Had CABG since her [...] longstanding diabetic. 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 [facility] 11-18-2023 Evaluation note Encounter Date Diagnosis [...] potassium improved with dietary restriction and Lasix. [facility] Other 01-29-2024 Evaluation note* Encounter Date Diagnosis Assessment Notes Treatment Notes Treatment Clinical Notes Oct, Anemia of renal disease (ICD-10 - D63.1) Oct, CKD (chronic kidney disease) stage 4, GFR 15-29 ml/min (ICD-10 - N18.4) [facility] Other 01-09-2024 Evaluation note* Encounter Date Diagnosis [...] potassium improved with dietary restriction and Lasix. [facility] Other 12-04-2023 Evaluation note* Encounter Date Diagnosis [...] 4, GFR 15-29 ml/min (ICD-10 - N18.4) [facility] Other 11-21-2023 Evaluation note* Encounter Date Diagnosis Assessment Notes Treatment Notes Treatment Clinical Notes Aug, Anemia of renal disease (ICD-10 - D63.1) Aug, CKD (chronic kidney disease) stage 4, GFR 15-29 ml/min (ICD-10 - N18.4) [facility] Other 11-09-2023 Evaluation note* Encounter Date Diagnosis [...] of kidney mass hydronephrosis or kidney stones. [facility] Other 10-26-2023 Evaluation note* Encounter Date Diagnosis [...] potassium improved with dietary restriction and Lasix. [facility] Other 09-18-2023 Evaluation note* Encounter Date Diagnosis [...] potassium improved with dietary restriction and Lasix. [facility] Other 08-31-2023 Evaluation note* Encounter Date Diagnosis [...] potassium improved with dietary restriction and Lasix. [facility] Other 07-25-2023 Evaluation note* Encounter Date Diagnosis [...] to normal with dietary restriction and Lasix. [facility] Other 07-01-2023 Evaluation note* Encounter Date Diagnosis Assessment Notes Treatment Notes Treatment Clinical Notes Apr, CKD (chronic kidney disease) stage 4, GFR 15-29 ml/min (ICD-10 - N18.4) Apr, Anemia of renal disease (ICD-10 - D63.1) [facility] Other 06-27-2023 Evaluation note* Encounter Date Diagnosis [...] to normal with dietary restriction and Lasix. [facility] Other 06-01-2023 Evaluation note* Encounter Date Diagnosis [...] potassium diet and provide information about it. [facility] Other 03-16-2023 Evaluation note* Encounter Date Diagnosis [...] to Continue Vit D 5000 units daily [facility] Other 01-30-2023 Evaluation note* Encounter Date Diagnosis [...] to Continue Vit D 5000 units daily [facility] Other 12-22-2022 Evaluation note* Encounter Date Diagnosis [...] to Continue Vit D 5000 units daily [facility] Other 11-16-2022 Evaluation note* Encounter Date Diagnosis [...] to Continue Vit D 5000 units daily [facility] Other 08-04-2022 Evaluation note* Encounter Date Diagnosis Assessment Notes Treatment Notes Treatment Clinical Notes May, Hypertensive chronic kidney disease with stage 1 through stage 4 chronic kidney disease, or unspecified chronic kidney disease (ICD-10 - I12.9) [facility] Other 08-02-2022 Evaluation note* Encounter Date Diagnosis [...] to Continue Vit D 5000 units daily [facility] Other 07-19-2022 Evaluation note* Encounter Date Diagnosis Assessment Notes Treatment Notes Treatment Clinical Notes Apr, Hypertensive chronic kidney disease with stage 1 through stage 4 chronic kidney disease, or unspecified chronic kidney disease (ICD-10 - I12.9) [facility] Other 04-14-2022 Evaluation note* Encounter Date Diagnosis [...] to take Vit D 1000 units daily [facility] Other Evaluation noteNo InformationNort Alleantia Other Evaluation note* Diagnosis Atherosclerosis of [place] coronary artery of [place] heart without angina 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 Hypertensive urgency Shortness of breath Paroxysmal atrial fibrillation (CMS-HCC) Atrial fibrillation Localized edema Ed[facility] - [facility]* Type Description [...] History SEE ABOVE Hospitalization History COVID 09/2020 [facility] Other history general Narrative - Reported* Type [...] History SEE ABOVE Hospitalization History COVID 09/2020 [facility] Other history general Narrative - Reported* Type [...] History SEE ABOVE Hospitalization History COVID 09/2020 [facility] Other History general Narrative - [employer] Other History general Narrative - Reported* Type [...] History SEE ABOVE Hospitalization History COVID 09/2020 [facility] Other InstructionsNot on filedocumented in this encounter [employer] [facility] Summary Purpose Family History No Family [...] and content) DATE CREATED AUTHOR 04/02/2018 [facility] DATE CREATED AUTHOR AUTHOR'S ORGANIZ ATION 01/27/2023 [facility] DATE CREATED AUTHOR AUTHOR'S ORGANIZ ATION 01/18/2024 [facility] DATE CREATED AUTHOR AUTHOR'S ORGANIZ ATION 05/12/2024 [facility] DATE CREATED AUTHOR AUTHOR'S ORGANIZ ATION 05/26/2024 [facility] EPIC REASON FOR VISIT (unrecogniz ed section and content) Reason Comments Med Refill Care Teams (unrecognized sec tion and content) [employer] Relationship Specialty Start Date End Date Dhruv Rubi MD [address] [place] [address] PCP - General Family Medicine 10/20/20 FOR [...] BE BASED ON THE PRIMARY CLINICAL RECORDS. Alexandre de Paris [facility]. provides no warranty or guarantee of the accuracy or completeness of information in this document.
[2024-06-18 16:45] LABS: Bilirubin Urine NEGATIVE (NEGATIVE); Blood Urine NEGATIVE (NEGATIVE); Clarity Urine CLEAR (CLEAR); Color Urine LT. YELLOW (YELLOW); Glucose Urine UA NEGATIVE (NEGATIVE); Ketones Urine TRACE mg/dL (NEGATIVE); Leukocyte Esterase Urine TRACE (NEGATIVE); Nitrite Urine NEGATIVE (NEGATIVE); Protein Urine 30 mg/dL (NEG/TRACE); Urobilinogen Urine 0.2 EU/dL (0.2-1.0); pH Urine 5.5 (5.0-9.0)
[2024-06-18 16:46] LABS: Basophils Percent Auto 0.3 % (0.2-2.0); Eosinophils Absolute Auto 0.1 10^3/uL (0.0-0.7); Eosinophils Percent Auto 0.8 % (0.9-7.0); Hematocrit 28.5 % (36.0-48.0); Hemoglobin 9.5 g/dL (12.0-16.0); Immature Granulocytes Abs Auto 0.06 10^3/uL (0.00-0.03); Immature Granulocytes Pct Auto 0.8 % (0.0-0.5); Lymphocytes Absolute Auto 1.8 10^3/uL (1.2-3.8); Lymphocytes Percent Auto 25.1 % (20.5-60.0); Mean Corpuscular HGB Conc 33.3 g/dL (29.9-35.2); Mean Corpuscular Hemoglobin 30.6 pg (26.7-34.0); Mean Corpuscular Volume 91.9 fL (81.0-99.0); Mean Platelet Volume 9.7 fL (9.5-13.5); Monocytes Absolute Auto 0.7 10^3/uL (0.3-0.8); Monocytes Percent Auto 9.9 % (1.7-12.0); Neutrophils Absolute Auto 4.5 10^3/uL (1.4-6.5); Neutrophils Percent Auto 63.1 % (43.0-75.0); Platelet Count 217 10^3/uL (150-450); Red Cell Distribution Width 15.6 % (11.0-15.0); White Blood Count 7.1 10^3/uL (4.0-11.0)
[2024-06-18 16:56] LABS: Bacteria Urine SMALL #/HPF (NONE SEEN); Cast Seen? SEEN #/LPF (NONE SEEN); Crystals Seen? None Seen #/HPF (None Seen); Hyaline Casts Urine FEW; Mucus Urine NONE SEEN (NONE SEEN); RBC Urine 0-2 #/HPF (0-2); Squamous Epithelial Cell Urine MANY #/LPF (NONE/RARE); Urine Culture Indicated YES; WBC Urine 0-2 #/HPF (NONE SEEN)
[2024-06-18 17:14] LABS: Alanine Aminotransferase 44 U/L (14-59); Albumin Globulin Ratio 0.9; Alkaline Phosphatase 76 U/L (46-116); Anion Gap 15.6; Aspartate Amino Transferase 21 U/L (15-37); BUN Creatinine Ratio 20.5; Bilirubin Total 0.6 mg/dL (0.2-1.0); Carbon Dioxide 24.6 mmol/L (21.0-32.0); Chloride 102 mmol/L (98-107); Estimated GFR (African America 25 (>=60); Estimated GFR (Non-African Ame 21 (>=60); Free T3 1.52 pg/mL (2.18-3.98); Globulin 3.4 g/dL; Glucose 141 mg/dL (74-106); Potassium 4.2 mmol/L (3.5-5.1); Sodium 138 mmol/L (136-145); Total Protein 6.4 g/dL (6.4-8.2)
== END 2024-06-18 16:04 | disposition home or self-care (01) ==
LOC: LAB 16:04
PROVIDERS: PCP Family Medicine; Visit Provider Family Medicine
DX: R07.9 Chest pain, unspecified (principal); I10 Essential (primary) hypertension
CPT/HCPCS: 36415; 80053; 81001; 83880; 84436; 84443; 84481; 85025; 87086

== ENCOUNTER 2024-06-24 07:49 | Outpatient (OUT) | payer MEDICARE, SELFPAY ==
--- NOTE | 2024-06-24 08:00 | CA_ITS ---
Patient Name: KYLAH BERGER MR#: [id number] : 1945 Exam Date: 06/24/2024 Ordering Doctor: DR STEFANO CATHERINE M.D. ECHOCARDIOGRAM REPORT PROCEDURE: CA ECHO DOPPLER COMPLETE INDICATIONS: Murmur, hypertension, diabetes COMPARISON: None. DESCRIPTION: COMPLETE ECHOCARDIOGRAM Real-time transthoracic echocardiography with 2D, M-mode, spectral and color flow Doppler performed. QUALITY: Technical quality was good. LEFT VENTRICLE: Normal chamber size. Mild left ventricular hypertrophy. Sigmoid septum. LV EF: Global left ventricular systolic function is hyperdynamic; visually estimated ejection fraction is 65 to 70%. No significant wall motion abnormalities. DIASTOLIC: Grade 1 diastolic dysfunction. ATRIAL SEPTUM: Visually appears intact. LEFT ATRIUM: Mild dilatation. RIGHT ATRIUM: Normal chamber size. RIGHT VENTRICLE: Normal chamber size. Normal right ventricular systolic function. TRICUSPID VALVE: Normal mobility and thickness. No stenosis with trivial regurgitation. No evidence of pulmonary hypertension. RVSP 18 mmHg MITRAL VALVE: Normal mobility and thickness. Mild mitral valve stenosis. Moderate mitral annular calcification. Trivial mitral regurgitation. AORTIC VALVE: Normal trileaflet appearance. Mildly calcified aortic valve. Mildly diminished mobility. No evidence of aortic valve stenosis. No aortic regurgitation. AORTIC ROOT: Normal diameter and appearance. Ascending aorta is normal in size. PULMONIC VALVE: Normal thickness and mobility. No stenosis. Trivial regurgitation. PERICARDIUM: No evidence of pericardial effusion. CONCLUSION: 1. Global left ventricular systolic function is hyperdynamic; visually estimated ejection fraction is 65 to 70% 2. Normal right ventricular size and systolic function 3. Mild left ventricular hypertrophy 4. Grade 1 diastolic dysfunction dysfunction 5. The left atrium is mildly dilated 6. Mild mitral stenosis Adult Echocardiography Procedure Report Left Ventricle LVEDD (3.7 - 5.6 cm): 4.46 cm LVESD (2.2 - 4.0 cm): 2.83 cm LVIVS thickness (0.6 - 1.2 cm): 1.56 cm LVPW thickness (0.5 - 1.0 cm): 1.25 cm e': 0.09 m/s E - e': 9.61 LVOT Max Gradient: 2.98 mm[Hg] LVOT Area (cm2): 0.86 m/s Peak Velocity (LVOT): 0.86 m/s Mean Velocity (LVOT): 0.57 m/s LVOT Diameter 1.97 cm Left Atrium LA Volume Index (2D A2C): 39.09 ml/m2 Left Atrium Systolic Dimension: 4.86 cm Mitral Valve MV E to A Ratio: 0.68 Mitral Valve A-Wave Peak Velocity: 1.29 m/s Mitral Valve E-Wave Peak Velocity: 0.88 m/s Right Ventricle Aorta AO Root Diam: 3.10 cm Ascending Ao Diam: 3.16 cm Aortic Valve AoV Area (Peak Shlomo): 1.86 cm2, 1.86 cm2 AoV Area (VTI): 2.59 cm2, 2.59 cm2 Peak Velocity(Antegrade Flow): 1.41 m/s Peak Gradient(Antegrade Flow): 7.94 mm[Hg] Mean Velocity(Antegrade Flow): 0.91 m/s Mean Gradient(Antegrade Flow): 3.86 mm[Hg] Velocity Time Integral: 27.65 cm Tricuspid Valve Peak Velocity (Regurgitant Flow): 1.93 m/s Pulmonic Valve Mean Gradient: 3.04 mm[Hg] Mean Velocity: 0.83 m/s Peak Velocity: 1.18 m/s, 1.06 m/s Peak Gradient: 4.53 mm[Hg], 5.59 mm[Hg] Right Atrium Right Atrium Systolic Pressure: 33.47 ml, 33.47 ml Dictated by: Stefano Catherine M.D. on 06/25/2024 at 17:00 Approved by: Stefano Catherine M.D. on 06/25/2024 at 17:05
--- OUTSIDE RECORDS SUMMARY | 2024-06-24 08:12 | XMS_ITS | CCD ---
Author Organization [facility] Care Team Providers Care Counter Control Operator Name Role Phone PHYSICIAN, DEFAULT Unavailable [...] Unavailable Fiorellay Dhruv NESS Primary Care Provider [phone] THUAN DELVALLE Attending Unavailable DHRUV RUBI Referring [...] amLODIPine; Translations: [AMLODIPINE] Drug Allergy 03-28-20 05 [facility] Xelerated (20 sources) Amoxicillin / Clavulanate Drug Allergy 11-23-19 21 [facility] YOOSE Other (20 sources) Contrast media Propensity to adverse reactions Unknown YOOSE Other (2 sources) Doxazosin; Translations: [doxazosin] Drug Allergy Unknown YOOSE Other (20 sources) Sulfamethoxazole / Trimethoprim Drug Allergy 11-23-19 21 [place] YOOSE Other (20 sources) Doxazosin; Translations: [DOXAZOSIN] Drug Allergy 11-23-19 21 Unknown YOOSE Other (9 sources) Amoxicillin / Clavulanate; Translations: [Augmentin] Drug Allergy 11-16-19 16 Unknown [facility] Repository (1 source) amLODIPine Drug Allergy 04-25-20 14 [facility] Repository (1 source) Sulfamethoxazole / Trimethoprim Drug Allergy 03-09-20 13 [facility] Repository (3 sources) Iodinated Contrast Media; Translations: [IODINATED CONTRAST MEDIA] Propensity to adverse reactions to drug 11-23-19 21 [employer] Xelerated (2 sources) Sulfamethoxazole / Trimethoprim; Translations: [SULFAMETHOXAZOLE-T RIMETHOPRIM] Drug Allergy 08-04-20 15 [facility] Repository (2 sources) AMOXICILLIN-POT CLAVULANATE; Translations: [AMOXICILLIN-POT CLAVULANATE] Propensity to adverse reactions to drug (disorder) 11-23-19 21 [facility] Repository (1 source) Sulfamethoxazole; Translations: [SULFAMETHOXAZOLE] Drug Allergy 03-12-20 23 [facility] Repository Medications Current Medications Medication Drug [...] coronary artery bypass graft , Atherosclerosis of [place] coronary artery of [place] heart without angina pectoris , Paroxysmal atrial fibrillation (CMS-HCC) , Localized edema Take 1 tablet (81 mg total) by mouth daily. 90 tablet 3 01/11/2021 Active take 1 tablet by enoz th every twenty-four hours Aspirin 81 MG 1 tablet Orally Once a day Active atorvastatin 80 mg oral tablet (20 sources) HMG-CoA Reductase Inhibitor Start: 12-27-2022 End: 12-25-2023 take 1 tablet by mouth once daily atorvastatin (LIPITOR) 80 mg tablet Indications: Atherosclerosis of [place] coronary artery of [place] heart without angina pectoris , H/O four [...] Orally every 12 hours Active epoetin johnna-epbx 20744 UNT/ML Injectable Solution [Retacrit] (14 sources) Retacrit 11417 U NIT/ML as directed Injection Active ferrous [...] 0 12/05/2021 Active take [address] [facility] every twenty-four hours Liothyronine Sodium 5 MCG 2 tablets on a n empty stomach Orally Once a day Active take [address] [facility] every twenty-four hours lisinopril 10 mg [...] in the morning. 0 12/19/2020 Active retacrit 97795 unit/ml solution (5 sources) Retacrit 35198 UNIT/ML as directed Injection Active Sennosides-Docusate Sodium [...] Coronary atherosclerosis; Translations: [Atherosclerotic heart disease of [place] coronary artery without angina pectoris] Onset: 1 [...] Range Facility Office Visiton 05-11-2024 Follow-up visit [id number] Garima Robin 1945 F Date Provider Department Center 05/11/2024 271-CARLIE CATHERINE [facility] No family history on file Level of Service:03605 [place] OFFICE/OUTPATIENT ESTABLISHED MOD MDM 30 MIN Normal [facility] Office Visiton 02-10-2024 Follow-up visit [id number] Garima Robin 1945 F Date Provider Department Letha 02/10/2024 CARLIE TORRES [facility] No family history on file Level of Service:03771 [place] OFFICE/OUTPATIENT ESTABLISHED MOD MDM 30 MIN Normal [facility] HEMOGRAM AND PLATELon 2022 Hematocrit (Bld) [Volume fraction] 28.8 % Critically low 36.0-48.0 [facility] Comment on above: Performed By: #### H H #### [facility] [address] [place] [address] Dr. Ember Teague Hemoglobin (Bld) [Mass/Vol] 9.6 g/dL Critically low 12.0-16.0 [facility] Comment on above: Performed By: #### H H #### [facility] [address] [address] [address] Ember Teague MCH (RBC) [Entitic mass] 30.7 pg Normal 26.7-34.0 [facility] Comment on above: Performed By: #### H H #### [facility] [address] [address] [address] Ember Teague MCHC (RBC) [Mass/Vol] 33.3 g/dL Normal 29.9-35.2 [facility] Comment on above: Performed By: #### H H #### [facility] [address] [address] [address] Ember Teague MCV (RBC) [Entitic vol] 92.0 fL Normal 81.0-99.0 [facility] Comment on above: Performed By: #### H H #### [facility] [address] [place] [address] Dr. Ember Teague PLT 214 103/ul Normal 150-450 [facility] Comment on above: Performed By: #### H H #### [facility] [address] [address] [address] Ember Teague RBC 3.13 106/ul Critically low 4.20-5.40 [facility] Comment on above: Performed By: #### H H #### [facility] [address] [address] [address] Ember Teague WBC 7.4 103/ul Normal 4.0-11.0 [facility] Comment on above: Performed By: #### H H #### [facility] [address] [place] [address] Dr. Ember Teague MAGNESIUMon 01-22-2023 Magnesium [Mass/Vol] 1.8 mg/dL Normal 1.8-2.4 [facility] Comment on above: Performed By: #### M G, RENAL #### [facility] [address] [place] [address] Dr. Ember Teague RENAL FUNCTION PANELon 01-22 Albumin [Mass/Vol] 3.6 g/dL Normal 3.4-5.0 [facility] Comment on above: Performed By: #### M G, RENAL #### [facility] [address] [address] [address] Ember Teague Calcium [Mass/Vol] 9.7 mg/dL Normal 8.5-10.1 [facility] Comment on above: Performed By: #### M G, RENAL #### [facility] [address] [place] [address] Dr. Ember Teague Chloride [Moles/Vol] 105 mmol/L Normal 98-107 [facility] Comment on above: Performed By: #### M G, RENAL #### [facility] [address] [address] [address] Ember Teague CO2 [Moles/Vol] 22.6 mmol/L Normal 21.0-32.0 [facility] Comment on above: Performed By: #### M G, RENAL #### [facility] [address] [address] [address] Ember Teague Creatinine [Mass/Vol] 2.18 mg/dL Critically high 0.55-1.02 [facility] Comment on above: Performed By: #### M G, RENAL #### [facility] [address] [address] [address] Ember Teague EGFR-AF LUXEMBOURGER 26 mL/min/1.73m2 Critically low >=60 [facility] Comment on above: Performed By: #### M G, RENAL #### [facility] [address] [address] [address] Ember Teague EGFR-NON AF LUXEMBOURGER 22 mL/min/1.73m2 Critically low >=60 [facility] Comment on above: Performed By: #### M G, RENAL #### [facility] [address] [address] [address] Ember Teague Glucose [Mass/Vol] 134 mg/dL Critically high 74-106 [facility] Comment on above: Performed By: #### M G, RENAL #### [facility] [address] [address] [address] Ember Teague Phosphate [Mass/Vol] 4.6 mg/dL Normal 2.6-4.7 [facility] Comment on above: Performed By: #### M G, RENAL #### [facility] [address] [place] [address] Dr. Ember Teague Potassium [Moles/Vol] 5.1 mmol/L Normal 3.5-5.1 [facility] Comment on above: Performed By: #### M G, RENAL #### [facility] [address] [place] [address] Dr. Ember Teague Sodium [Moles/Vol] 138 mmol/L Normal 136-145 [facility] Comment on above: Performed By: #### M G, RENAL #### [facility] [address] [address] [address] Ember Teague Urea nitrogen [Mass/Vol] 61.0 mg/dL Critically high 7.0-18.0 [facility] Comment on above: Performed By: #### M G, RENAL #### [facility] [address] [address] [address] Ember Teague MG MAMM SCREEN 3D MAY CADon 12-17-2022 MG MAMM SCREEN 3D MAY CAD Patient: KYLAH ROBIN Exam Date: 12/17/2022 : 1945 Gender:F Ordering : DR DHRUV RUBI . Admission #: [id number] Family : Order #: [id number] CLICK HERE TO VIEW EXAM RADIOLOGY REPORT [...] lung cancer at age 61. LOCATION: [facility] BREAST COMPOSITION: Scattered areas fibroglandular [...] MD on 12/17/2022 at 11:59 Normal [facility] FERRITINon 12-10-2022 Ferritin [Mass/Vol] 681.0 ng/mL Critically high 8.0-252.0 [facility] Comment on above: Performed By: #### P THINT #### [facility] [address] [address] [address] Ember Teague HEMOGRAM AND PLATELon 2022 Hematocrit (Bld) [Volume fraction] 27.1 % Critically low 36.0-48.0 [facility] Comment on above: Performed By: #### C VDTBH #### [facility] [address] [address] [address] Ember Teague Hemoglobin (Bld) [Mass/Vol] 9.7 g/dL Critically low 12.0-16.0 [facility] Comment on above: Performed By: #### C VDTBH #### [facility] [address] [place] [address] Dr. Ember Teague MCH (RBC) [Entitic mass] 31.4 pg Normal 26.7-34.0 [facility] Comment on above: Performed By: #### C VDTBH #### [facility] [address] [place] [address] Dr. Ember Teague MCHC (RBC) [Mass/Vol] 35.8 g/dL Critically high 29.9-35.2 [facility] Comment on above: Performed By: #### C VDTBH #### [facility] [address] [place] [address] Dr. Ember Teague MCV (RBC) [Entitic vol] 87.7 fL Normal 81.0-99.0 [facility] Comment on above: Performed By: #### C VDTBH #### [facility] [address] [place] [address] Dr. Ember Teague PLT 218 103/ul Normal 150-450 [facility] Comment on above: Performed By: #### C VDTBH #### [facility] [address] [place] [address] Dr. Ember Teague RBC 3.09 106/ul Critically low 4.20-5.40 [facility] Comment on above: Performed By: #### C VDTBH #### [facility] [address] [place] [address] Dr. Ember Teague WBC 6.6 103/ul Normal 4.0-11.0 [facility] Comment on above: Performed By: #### C VDTBH #### [facility] [address] [place] [address] Dr. Ember Teague IRON AND TIBCon 12-10-2022 % SATURATION 30.2 % Normal [facility] Comment on above: Performed By: #### P THINT #### [facility] [address] [place] [address] Dr. Ember Teague Iron [Mass/Vol] 84.0 ug/dL Normal 50.0-170.0 [facility] Comment on above: Performed By: #### P THINT #### [facility] [address] [place] [address] Dr. Ember Teague TIBC DIRECT 278.0 ug/dL Normal 250.0-450.0 [facility] Comment on above: Performed By: #### P THINT #### [facility] [address] [place] [address] Dr. Ember Teague XR FOOT MAY MIN [...] BENI APARICIO Date: 2022-11-20 14:03 Normal [facility] HEMOGRAM AND PLATELon 2022 Hematocrit (Bld) [Volume fraction] 27.7 % Critically low 36.0-48.0 [facility] Comment on above: Performed By: #### R ENAL #### [facility] [address] [address] [address] Ember Teague Hemoglobin (Bld) [Mass/Vol] 10.0 g/dL Critically low 12.0-16.0 [facility] Comment on above: Performed By: #### R ENAL #### [facility] [address] [place] [address] Dr. Ember Teague MCH (RBC) [Entitic mass] 31.6 pg Normal 26.7-34.0 [facility] Comment on above: Performed By: #### R ENAL #### [facility] [address] [address] [address] Ember Teague MCHC (RBC) [Mass/Vol] 36.1 g/dL Critically high 29.9-35.2 [facility] Comment on above: Performed By: #### R ENAL #### [facility] [address] [address] [address] Ember Teague MCV (RBC) [Entitic vol] 87.7 fL Normal 81.0-99.0 [facility] Comment on above: Performed By: #### R ENAL #### [facility] [address] [address] [address] Ember Teague PLT 182 103/ul Normal 150-450 [facility] Comment on above: Performed By: #### R ENAL #### [facility] [address] [place] [address] Dr. Ember Teague RBC 3.16 106/ul Critically low 4.20-5.40 [facility] Comment on above: Performed By: #### R ENAL #### [facility] [address] [place] [address] Dr. Ember Teague WBC 6.8 103/ul Normal 4.0-11.0 [facility] Comment on above: Performed By: #### R ENAL #### [facility] [address] [place] [address] Dr. Ember Teague PROF CHEM 8 (BAS METB)on Anion gap [Moles/Vol] 17.6 mmol/L Normal [facility] Comment on above: Performed By: #### C VDTBH #### [facility] [address] [place] [address] Dr. Ember Teague Calcium [Mass/Vol] 9.0 mg/dL Normal 8.5-10.1 [facility] Comment on above: Performed By: #### C VDTBH #### [facility] [address] [place] [address] Dr. Ember Teague Chloride [Moles/Vol] 104 mmol/L Normal 98-107 [facility] Comment on above: Performed By: #### C VDTBH #### [facility] [address] [address] [address] Ember Teague CO2 [Moles/Vol] 22.2 mmol/L Normal 21.0-32.0 [facility] Comment on above: Performed By: #### C VDTBH #### [facility] [address] [address] [address] Ember Teague Creatinine [Mass/Vol] 2.03 mg/dL Critically high 0.55-1.02 [facility] Comment on above: Performed By: #### C VDTBH #### [facility] [address] [address] [address] Ember Teague EGFR-AF LUXEMBOURGER 29 mL/min/1.73m2 Critically low >=60 [facility] Comment on above: Performed By: #### C VDTBH #### [facility] [address] [address] [address] Ember Teague EGFR-NON AF LUXEMBOURGER 24 mL/min/1.73m2 Critically low >=60 [facility] Comment on above: Performed By: #### C VDTBH #### [facility] [address] [address] [address] Ember Teague Glucose [Mass/Vol] 154 mg/dL Critically high 74-106 [facility] Comment on above: Performed By: #### C VDTBH #### [facility] [address] [address] [address] Ember Teague Potassium [Moles/Vol] 4.8 mmol/L Normal 3.5-5.1 [facility] Comment on above: Performed By: #### C VDTBH #### [facility] [address] [address] [address] Ember Teague Sodium [Moles/Vol] 139 mmol/L Normal 136-145 [facility] Comment on above: Performed By: #### C VDTBH #### [facility] [address] [address] [address] Ember Teague Urea nitrogen [Mass/Vol] 43.0 mg/dL Critically high 7.0-18.0 [facility] Comment on above: Performed By: #### C VDTBH #### [facility] [address] [address] [address] Ember Teague Urea nitrogen/Creatinine [Mass ratio] 21.2 mg/mg Normal [facility] Comment on above: Performed By: #### C VDTBH #### [facility] [address] [address] [address] Ember Teague CULTURE SPUTUMon 10-24-2022 CULTURE SPUTUM Culture Observations : Beta lactamase positive Isolate 1 Haemophilus influenzae Moderate growth of Normal [facility] Comment on above: Performed By: #### R ENAL #### [facility] [address] [address] [address] Ember Teague SPUTUM GRAM STAINon 10-24-19 COMMENTS Normal [facility] Comment on above: Performed By: #### R ENAL #### [facility] [address] [address] [address] Ember Teague DIPHTHEROIDS Normal [facility] Comment on above: Performed By: #### R ENAL #### [facility] [address] [address] [address] Ember Teague EPITHELIALS >25 Normal [facility] Comment on above: Performed By: #### R ENAL #### [facility] [address] [address] [address] Ember Teague FUNGAL ELEMENTS Normal [facility] Comment on above: Performed By: #### R ENAL #### [facility] [address] [address] [address] Ember Teague GRAM NEG BACILLI Normal [facility] Comment on above: Performed By: #### R ENAL #### [facility] [address] [address] [address] Ember Teague GRAM NEG DIPPLOCOCCI FEW Normal [facility] Comment on above: Performed By: #### R ENAL #### [facility] [address] [address] [address] Ember Teague GRAM POS BACILLI FEW Normal [facility] Comment on above: Performed By: #### R ENAL #### [facility] [address] [address] [address] Ember Teague GRAM POSITIVE COCCI MANY Normal [facility] Comment on above: Performed By: #### R ENAL #### [facility] [address] [address] [address] Ember Teague WBC (Bld) [#/Vol] 10*3/uL Normal [facility] Comment on above: Performed By: #### R ENAL #### [facility] [address] [place] [address] Dr. Ember Teague XR CHEST 2 Von [...] ANGELINA BRISENO Date: 2022-10-24 16:22 Normal [facility] FERRITINon 09-18-2022 Ferritin [Mass/Vol] 612.0 ng/mL Critically high 8.0-252.0 [facility] Comment on above: Performed By: #### F ERR, FETIBC #### [facility] [address] [place] [address] Dr. Ember Teague HEMOGRAM AND PLATELon 2021 Hematocrit (Bld) [Volume fraction] 28.1 % Critically low 36.0-48.0 [facility] Comment on above: Performed By: #### C BC #### [facility] [address] [place] [address] Dr. Ember Teague Hemoglobin (Bld) [Mass/Vol] 9.7 g/dL Critically low 12.0-16.0 [facility] Comment on above: Performed By: #### C BC #### [facility] [address] [place] [address] Dr. Ember Teague MCH (RBC) [Entitic mass] 31.3 pg Normal 26.7-34.0 [facility] Comment on above: Performed By: #### C BC #### [facility] [address] [place] [address] Dr. Ember Teague MCHC (RBC) [Mass/Vol] 34.5 g/dL Normal 29.9-35.2 [facility] Comment on above: Performed By: #### C BC #### [facility] [address] [place] [address] Dr. Ember Teague MCV (RBC) [Entitic vol] 90.6 fL Normal 81.0-99.0 [facility] Comment on above: Performed By: #### C BC #### [facility] [address] [place] [address] Dr. Ember Teague PLT 183 103/ul Normal 150-450 [facility] Comment on above: Performed By: #### C BC #### [facility] [address] [place] [address] Dr. Embre Teague RBC 3.10 106/ul Critically low 4.20-5.40 [facility] Comment on above: Performed By: #### C BC #### [facility] [address] [place] [address] Dr. Ember Teague WBC 7.2 103/ul Normal 4.0-11.0 [facility] Comment on above: Performed By: #### C BC #### [facility] [address] [place] [address] Dr. Ember Teague IRON AND TIBCon 09-18-2022 % SATURATION 36.0 % Normal [facility] Comment on above: Performed By: #### F ERR, FETIBC #### [facility] [address] [place] [address] Dr. Ember Teague Iron [Mass/Vol] 77.0 ug/dL Normal 50.0-170.0 [facility] Comment on above: Performed By: #### F ERR, FETIBC #### [facility] [address] [place] [address] Dr. Ember Teague TIBC DIRECT 214.0 ug/dL Critically low 250.0-450.0 [facility] Comment on above: Performed By: #### F ERR, FETIBC #### [facility] [address] [place] [address] Dr. Ember Teague RENAL FUNCTION PANELon 09-18 Albumin [Mass/Vol] 3.7 g/dL Normal 3.4-5.0 [facility] Comment on above: Performed By: #### R ENAL #### [facility] [address] [address] [address] Ember Teague Calcium [Mass/Vol] 9.5 mg/dL Normal 8.5-10.1 [facility] Comment on above: Performed By: #### R ENAL #### [facility] [address] [place] [address] Dr. Ember Teague Chloride [Moles/Vol] 103 mmol/L Normal 98-107 [facility] Comment on above: Performed By: #### R ENAL #### [facility] [address] [place] [address] Dr. Ember Teague CO2 [Moles/Vol] 21.1 mmol/L Normal 21.0-32.0 [facility] Comment on above: Performed By: #### R ENAL #### [facility] [address] [place] [address] Dr. Ember Teague Creatinine [Mass/Vol] 1.85 mg/dL Critically high 0.55-1.02 [facility] Comment on above: Performed By: #### R ENAL #### [facility] [address] [place] [address] Dr. Ember Teague EGFR-AF LUXEMBOURGER 32 mL/min/1.73m2 Critically low >=60 [facility] Comment on above: Performed By: #### R ENAL #### [facility] [address] [place] [address] Dr. Ember Teague EGFR-NON AF LUXEMBOURGER 26 mL/min/1.73m2 Critically low >=60 [facility] Comment on above: Performed By: #### R ENAL #### [facility] [address] [place], [place] [id number] Dr. Ember Teague Glucose [Mass/Vol] 183 mg/dL Critically high 74-106 [facility] Comment on above: Performed By: #### R ENAL #### [facility] [address] [address] [address] Ember Teague Phosphate [Mass/Vol] 3.7 mg/dL Normal 2.6-4.7 [facility] Comment on above: Performed By: #### R ENAL #### [facility] [address] [address] [address] Ember Teague Potassium [Moles/Vol] 4.9 mmol/L Normal 3.5-5.1 [facility] Comment on above: Performed By: #### R ENAL #### [facility] [facility] [address] [place] [address] Dr. Ember Teague Sodium [Moles/Vol] 138 mmol/L Normal 136-145 [facility] Comment on above: Performed By: #### R ENAL #### [facility] [address] [place] [address] Dr. Ember Teague Urea nitrogen [Mass/Vol] 40.0 mg/dL Critically high 7.0-18.0 [facility] Comment on above: Performed By: #### R ENAL #### [facility] [address] [place] [address] Dr. Ember Teague CULTURE URINEon 09-15-2022 CULTURE [...] Trimethoprim/Sulfamet hoxazole <=20 S F Normal [facility] Comment on above: Performed By: #### R ENAL #### [facility] [address] [place] [address] Dr. Ember Teague BNPon 09-11-2022 Natriuretic peptide B (Bld) [Mass/Vol] 408.0 pg/mL Normal <=1,800.0 [facility] Comment on above: Performed By: #### P THINT #### [facility] [address] [place] [address] Dr. Ember Teague CBC AUTO DIFFon 09-11-2022 BASO # 0.0 103/ul Normal 0.0-0.1 [facility] Comment on above: Performed By: #### C BC #### [facility] [address] [place] [address] Dr. Ember Teague Basophils/100 WBC (Bld) 0.3 % Normal 0.2-2.0 [facility] Comment on above: Performed By: #### C BC #### [facility] [address] [place] [address] Dr. Ember Teague EO # 0.1 103/ul Normal 0.0-0.7 [facility] Comment on above: Performed By: #### C BC #### [facility] [address] [place] [address] Dr. Ember Teague Eosinophils/100 WBC (Bld) 1.9 % Normal 0.9-7.0 [facility] Comment on above: Performed By: #### C BC #### [facility] [address] [place] [address] Dr. Ember Teague Erythrocyte distribution width (RBC) [Ratio] 15.2 % Critically high 11.0-15.0 [facility] Comment on above: Performed By: #### C BC #### [facility] [address] [place] [address] Dr. Ember Teague Hematocrit (Bld) [Volume fraction] 26.6 % Critically low 36.0-48.0 [facility] Comment on above: Performed By: #### C BC #### [facility] [address] [place] [address] Dr. Ember Teague Hemoglobin (Bld) [Mass/Vol] 9.0 g/dL Critically low 12.0-16.0 [facility] Comment on above: Performed By: #### C BC #### [facility] [address] [place] [address] Dr. Ember Teague IG # 0.02 10e3/ul Normal 0.00-0.03 [facility] Comment on above: Performed By: #### C BC #### [facility] [address] [place] [address] Dr. Ember Teague IG % 0.3 % Normal 0.0-0.5 [facility] Comment on above: Performed By: #### C BC #### [facility] [address] [place] [address] Dr. Ember Teague LYMPH # 1.9 103/ul Normal 1.2-3.8 [facility] Comment on above: Performed By: #### C BC #### [facility] [address] [place] [address] Dr. Ember Teague Lymphocytes/100 WBC (Bld) 32.4 % Normal 20.5-60.0 [facility] Comment on above: Performed By: #### C BC #### [facility] [address] [place] [address] Dr. Ember Teague MANUAL DIFF REQ NO Normal [facility] Comment on above: Performed By: #### C BC #### [facility] [address] [place] [address] Dr. Ember Teague MCH (RBC) [Entitic mass] 31.1 pg Normal 26.7-34.0 [facility] Comment on above: Performed By: #### C BC #### [facility] [address] [place] [address] Dr. Ember Teague MCHC (RBC) [Mass/Vol] 33.8 g/dL Normal 29.9-35.2 [facility] Comment on above: Performed By: #### C BC #### [facility] [address] [place] [address] Dr. Ember Teague MCV (RBC) [Entitic vol] 92.0 fL Normal 81.0-99.0 [facility] Comment on above: Performed By: #### C BC #### [facility] [address] [address] [address] Ember Teague MONO # 0.6 103/ul Normal 0.3-0.8 [facility] Comment on above: Performed By: #### C BC #### [facility] [address] [address] [address] Ember Teague Monocytes/100 WBC (Bld) 10.0 % Normal 1.7-12.0 [facility] Comment on above: Performed By: #### C BC #### [facility] [address] [place] [address] Dr. Ember Teague NEUT # 3.2 103/ul Normal 1.4-6.5 [facility] Comment on above: Performed By: #### C BC #### [facility] [address] [place] [address] Dr. Ember Teague Neutrophils/100 WBC (Bld) 55.1 % Normal 43.0-75.0 [facility] Comment on above: Performed By: #### C BC #### [facility] [address] [place] [address] Dr. Ember Teague Platelet mean volume (Bld) [Entitic vol] 9.4 fL Critically low 9.5-13.5 [facility] Comment on above: Performed By: #### C BC #### [facility] [address] [place] [address] Dr. Ember Teague PLT 196 103/ul Normal 150-450 [facility] Comment on above: Performed By: #### C BC #### [facility] [address] [place] [address] Dr. Ember Teague RBC 2.89 106/ul Critically low 4.20-5.40 [facility] Comment on above: Performed By: #### C BC #### [facility] [address] [place] [address] Dr. Ember Teague WBC 5.8 103/ul Normal 4.0-11.0 [facility] Comment on above: Performed By: #### C BC #### [facility] [address] [place] [address] Dr. Ember Teague PROF 14(COMP METB)on 022 Albumin [Mass/Vol] 3.7 g/dL Normal 3.4-5.0 [facility] Comment on above: Performed By: #### P THINT #### [facility] [address] [place] [address] Dr. Ember Teague Albumin/Globulin [Mass ratio] 1.0 {ratio} Normal [facility] Comment on above: Performed By: #### P THINT #### [facility] [address] [place] [address] Dr. Ember Teague ALP [Catalytic activity/Vol] 79 U/L Normal 46-116 [facility] Comment on above: Performed By: #### P THINT #### [facility] [address] [place] [address] Dr. Ember Teague ALT [Catalytic activity/Vol] 24 U/L Normal 14-59 [facility] Comment on above: Performed By: #### P THINT #### [facility] [address] [place] [address] Dr. Ember Teague Anion gap [Moles/Vol] 12.8 mmol/L Normal [facility] Comment on above: Performed By: #### P THINT #### [facility] [address] [place] [address] Dr. Ember Teague AST [Catalytic activity/Vol] 17 U/L Normal 15-37 [facility] Comment on above: Performed By: #### P THINT #### [facility] [address] [place] [address] Dr. Ember Teague Bilirubin [Mass/Vol] 0.5 mg/dL Normal 0.2-1.0 [facility] Comment on above: Performed By: #### P THINT #### [facility] [address] [place] [address] Dr. Ember Teague Calcium [Mass/Vol] 9.4 mg/dL Normal 8.5-10.1 [facility] Comment on above: Performed By: #### P THINT #### [facility] [address] [address] [address] Ember Teague Chloride [Moles/Vol] 101 mmol/L Normal 98-107 [facility] Comment on above: Performed By: #### P THINT #### [facility] [address] [address] [address] Ember Teague CO2 [Moles/Vol] 24.3 mmol/L Normal 21.0-32.0 [facility] Comment on above: Performed By: #### P THINT #### [facility] [address] [address] [address] Ember Teague Creatinine [Mass/Vol] 2.84 mg/dL Critically high 0.55-1.02 [facility] Comment on above: Performed By: #### P THINT #### [facility] [address] [address] [address] Ember Teague EGFR-AF LUXEMBOURGER 20 mL/min/1.73m2 Critically low >=60 [facility] Comment on above: Performed By: #### P THINT #### [facility] [address] [address] [address] Ember Teague EGFR-NON AF LUXEMBOURGER 16 mL/min/1.73m2 Critically low >=60 [facility] Comment on above: Performed By: #### P THINT #### [facility] [address] [address] [address] Ember Teague Globulin (S) [Mass/Vol] 3.7 g/dL Normal [facility] Comment on above: Performed By: #### P THINT #### [facility] [address] [address] [address] Ember Teague Glucose [Mass/Vol] 174 mg/dL Critically high 74-106 [facility] Comment on above: Performed By: #### P THINT #### [facility] [address] [address] [address] Ember Teague Potassium [Moles/Vol] 5.1 mmol/L Normal 3.5-5.1 [facility] Comment on above: Performed By: #### P THINT #### [facility] [address] [place], [place] [address] Dr. Ember Teague Protein [Mass/Vol] 7.4 g/dL Normal 6.4-8.2 [facility] Comment on above: Performed By: #### P THINT #### [facility] [address] [place], [place] [address] Dr. Ember Teague Sodium [Moles/Vol] 133 mmol/L Critically low 136-145 [facility] Comment on above: Performed By: #### P THINT #### [facility] [address] [address] [address] Ember Teague Urea nitrogen [Mass/Vol] 68.0 mg/dL Critically high 7.0-18.0 [facility] Comment on above: Performed By: #### P THINT #### [facility] [address] [address] [address] Ember Teague Urea nitrogen/Creatinine [Mass ratio] 23.9 mg/mg Normal [facility] Comment on above: Performed By: #### P THINT #### [facility] [address] [address] [address] Ember Teague TROPONIN, HIGH SENSITIVITYon 09-11-2022 HSTROP 9.1 pg/mL Normal 4.0-51.3 [facility] Comment on above: Result Comment: CUT- OFF POINTS HAVE BEEN ESTABLISHED BASED ON THE FOURTH UNIVERSAL DEFINITIONS OF MYOCARDIAL INFARCTION. THE UPPER REFERENCE LIMIT (URL) OF TROPONIN, DEFINED THE 99TH PERCENTILE OF cTnI DISTRIBUTION IN A REFERENCE POPULATION, HAS BEEN CONFIRMED THE DECISION THRESHOLD FOR NM DIAGNOSIS. Performed By: #### P THINT #### [facility] [address] [place] [address] [id number] [address] Ember Teague UA RANDOM W/MICROSCOPICon BACTERIA NONE SEEN Normal NONE SEEN [facility] Comment on above: Performed By: #### C VDTBH #### [facility] [address] [place], [place] [id number] Dr. Ember Teague Bilirubin Ql (U) Negative Normal NEGATIVE [facility] Comment on above: Performed By: #### C VDTBH #### [facility] [address] [place] [address] Dr. Ember Teague CAST NONE SEEN Normal NONE SEEN [facility] Comment on above: Performed By: #### C VDTBH #### [facility] [address] [place] [address] Dr. Ember Teague Clarity (U) CLEAR Normal CLEAR [facility] Comment on above: Performed By: #### C VDTBH #### [facility] [address] [place] [address] Dr. Ember Teague Color (U) LT. YELLOW Normal YELLOW [facility] Comment on above: Performed By: #### C VDTBH #### [facility] [address] [place] [address] Dr. Ember Teague Crystals LM Nom (Urine sed) NONE SEEN Normal NONE SEEN [facility] Comment on above: Performed By: #### C VDTBH #### [facility] [address] [place] [address] Dr. Ember Teague Epithelial cells LM Ql (Urine sed) FEW Abnormal NONE SEEN /RARE [facility] Comment on above: Performed By: #### C VDTBH #### [facility] [address] [place] [address] Dr. Ember Teague Glucose Ql (U) Negative Normal NEGATIVE [facility] Comment on above: Performed By: #### C VDTBH #### [facility] [address] [place] [address] Dr. Ember Teague Hemoglobin Ql (U) Negative Normal NEGATIVE [facility] Comment on above: Performed By: #### C VDTBH #### [facility] [address] [place] [address] Dr. Ember Teague Ketones Ql (U) Negative Normal NEGATIVE [facility] Comment on above: Performed By: #### C VDTBH #### [facility] [address] [place] [address] Dr. Ember Teague LEUKOCYTES Negative Normal NEGATIVE [facility] Comment on above: Performed By: #### C VDTBH #### [facility] [address] [place] [address] Dr. Ember Teague MUCOUS NONE SEEN Normal NONE SEEN [facility] Comment on above: Performed By: #### C VDTBH #### [facility] [address] [address] [address] Ember Teague Nitrite Ql (U) Negative Normal NEGATIVE [facility] Comment on above: Performed By: #### C VDTBH #### [facility] [address] [place] [address] Dr. Ember Teague pH (U) 5.5 [pH] Normal 5-9 [facility] Comment on above: Performed By: #### C VDTBH #### [facility] [address] [place] [address] Dr. Ember Teague RBC NONE SEEN Abnormal 0-2 [facility] Comment on above: Performed By: #### C VDTBH #### [facility] [address] [place] [address] Dr. Ember Teague SPEC GRAVITY 1.010 Normal 1.005-<=1.025 [facility] Comment on above: Performed By: #### C VDTBH #### [facility] [address] [place] [address] Dr. Ember Teague UA PROTEIN Negative Normal NEGATIVE/ TRACE [facility] Comment on above: Performed By: #### C VDTBH #### [facility] [address] [place] [address] Dr. Ember Teague Urobilinogen Qn (U) 0.2 {Esau'U}/dL Normal 0.2 - 1. 0 [facility] Comment on above: Performed By: #### C VDTBH #### [facility] [address] [place] [address] Dr. Ember Teague WBC NONE SEEN Normal NONE SEEN [facility] Comment on above: Performed By: #### C VDTBH #### [facility] [address] [place] [address] Dr. Ember Teague CBC AUTO DIFFon 08-13-2022 BASO # 0.0 103/ul Normal 0.0-0.1 [facility] Comment on above: Performed By: #### C BC #### [facility] [address] [address] [address] Ember Teague Basophils/100 WBC (Bld) 0.3 % Normal 0.2-2.0 [facility] Comment on above: Performed By: #### C BC #### [facility] [address] [place] [address] Dr. Ember Teague EO # 0.2 103/ul Normal 0.0-0.7 [facility] Comment on above: Performed By: #### C BC #### [facility] [address] [place] [address] Dr. Ember Teague Eosinophils/100 WBC (Bld) 3.7 % Normal 0.9-7.0 [facility] Comment on above: Performed By: #### C BC #### [facility] [address] [place] [address] Dr. Ember Teague Erythrocyte distribution width (RBC) [Ratio] 15.0 % Normal 11.0-15.0 [facility] Comment on above: Performed By: #### C BC #### [facility] [address] [place] [address] Dr. Ember Teague Hematocrit (Bld) [Volume fraction] 27.9 % Critically low 36.0-48.0 [facility] Comment on above: Performed By: #### C BC #### [facility] [address] [place] [address] Dr. Ember Teague Hemoglobin (Bld) [Mass/Vol] 9.7 g/dL Critically low 12.0-16.0 [facility] Comment on above: Performed By: #### C BC #### [facility] [address] [place] [address] Dr. Ember Teague IG # 0.01 10e3/ul Normal 0.00-0.03 [facility] Comment on above: Performed By: #### C BC #### [facility] [address] [place] [address] Dr. Ember Teague IG % 0.2 % Normal 0.0-0.5 [facility] Comment on above: Performed By: #### C BC #### [facility] [address] [place] [address] Dr. Ember Teague LYMPH # 1.9 103/ul Normal 1.2-3.8 [facility] Comment on above: Performed By: #### C BC #### [facility] [address] [place] [address] Dr. Ember Teague Lymphocytes/100 WBC (Bld) 32.2 % Normal 20.5-60.0 [facility] Comment on above: Performed By: #### C BC #### [facility] [address] [place] [address] Dr. Ember Teague MANUAL DIFF REQ NO Normal [facility] Comment on above: Performed By: #### C BC #### [facility] [address] [place] [address] Dr. Ember Teague MCH (RBC) [Entitic mass] 31.4 pg Normal 26.7-34.0 [facility] Comment on above: Performed By: #### C BC #### [facility] [address] [place] [address] Dr. Ember Teague MCHC (RBC) [Mass/Vol] 34.8 g/dL Normal 29.9-35.2 [facility] Comment on above: Performed By: #### C BC #### [facility] [address] [place] [address] Dr. Ember Teague MCV (RBC) [Entitic vol] 90.3 fL Normal 81.0-99.0 [facility] Comment on above: Performed By: #### C BC #### [facility] [address] [place] [address] Dr. Ember Teague MONO # 0.6 103/ul Normal 0.3-0.8 [facility] Comment on above: Performed By: #### C BC #### [facility] [address] [place] [address] Dr. Ember Teague Monocytes/100 WBC (Bld) 9.8 % Normal 1.7-12.0 [facility] Comment on above: Performed By: #### C BC #### [facility] [address] [place] [address] Dr. Ember Teague NEUT # 3.2 103/ul Normal 1.4-6.5 [facility] Comment on above: Performed By: #### C BC #### [facility] [address] [place] [address] Dr. Ember Teague Neutrophils/100 WBC (Bld) 53.8 % Normal 43.0-75.0 [facility] Comment on above: Performed By: #### C BC #### [facility] [address] [place] [address] Dr. Ember Teague Platelet mean volume (Bld) [Entitic vol] 10.0 fL Normal 9.5-13.5 [facility] Comment on above: Performed By: #### C BC #### [facility] [address] [place] [address] Dr. Ember Teague PLT 194 103/ul Normal 150-450 [facility] Comment on above: Performed By: #### C BC #### [facility] [address] [place] [address] Dr. Ember Teague RBC 3.09 106/ul Critically low 4.20-5.40 [facility] Comment on above: Performed By: #### C BC #### [facility] [address] [place] [address] Dr. Ember Teague WBC 6.0 103/ul Normal 4.0-11.0 [facility] Comment on above: Performed By: #### C BC #### [facility] [address] [place] [address] Dr. Ember Teague PTH INTACTon 06-26-2022 PTH, Intact 39 pg/mL Normal 15-65 [facility] Comment on above: Performed By: #### P THINT #### [facility] [address] [place] [address] Dr. Ember Teague CBC AUTO DIFFon 06-25-2022 BASO # 0.1 103/ul Normal 0.0-0.1 [facility] Comment on above: Performed By: #### C VDTBH #### [facility] [address] [place] [address] Dr. Ember Teague Basophils/100 WBC (Bld) 0.6 % Normal 0.2-2.0 [facility] Comment on above: Performed By: #### C VDTBH #### [facility] [address] [place] [address] Dr. Ember Teague EO # 0.2 103/ul Normal 0.0-0.7 [facility] Comment on above: Performed By: #### C VDTBH #### [facility] [address] [place] [address] Dr. Ember Teague Eosinophils/100 WBC (Bld) 3.0 % Normal 0.9-7.0 [facility] Comment on above: Performed By: #### C VDTBH #### [facility] [address] [place] [address] Dr. Ember Teague Erythrocyte distribution width (RBC) [Ratio] 14.2 % Normal 11.0-15.0 [facility] Comment on above: Performed By: #### C VDTBH #### [facility] [address] [place] [address] Dr. Ember Teague Hematocrit (Bld) [Volume fraction] 30.9 % Critically low 36.0-48.0 [facility] Comment on above: Performed By: #### C VDTBH #### [facility] [address] [place] [address] Dr. Ember Teague Hemoglobin (Bld) [Mass/Vol] 10.6 g/dL Critically low 12.0-16.0 [facility] Comment on above: Performed By: #### C VDTBH #### [facility] [address] [place] [address] Dr. Ember Teague IG # 0.04 10e3/ul Critically high 0.00-0.03 [facility] Comment on above: Performed By: #### C VDTBH #### [facility] [address] [place] [address] Dr. Ember Teague IG % 0.5 % Normal 0.0-0.5 [facility] Comment on above: Performed By: #### C VDTBH #### [facility] [address] [place] [address] Dr. Ember Teague LYMPH # 2.2 103/ul Normal 1.2-3.8 [facility] Comment on above: Performed By: #### C VDTBH #### [facility] [address] [place] [address] Dr. Ember Teague Lymphocytes/100 WBC (Bld) 27.0 % Normal 20.5-60.0 [facility] Comment on above: Performed By: #### C VDTBH #### [facility] [address] [place] [address] Dr. Ember Teague MANUAL DIFF REQ NO Normal [facility] Comment on above: Performed By: #### C VDTBH #### [facility] [address] [place] [address] Dr. Ember Teague MCH (RBC) [Entitic mass] 31.2 pg Normal 26.7-34.0 [facility] Comment on above: Performed By: #### C VDTBH #### [facility] [address] [place] [address] Dr. Ember Teague MCHC (RBC) [Mass/Vol] 34.3 g/dL Normal 29.9-35.2 [facility] Comment on above: Performed By: #### C VDTBH #### [facility] [address] [place] [address] Dr. Ember Teague MCV (RBC) [Entitic vol] 90.9 fL Normal 81.0-99.0 [facility] Comment on above: Performed By: #### C VDTBH #### [facility] [address] [place] [address] Dr. Ember Teague MONO # 0.7 103/ul Normal 0.3-0.8 [facility] Comment on above: Performed By: #### C VDTBH #### [facility] [address] [place] [address] Dr. Ember Teague Monocytes/100 WBC (Bld) 9.2 % Normal 1.7-12.0 [facility] Comment on above: Performed By: #### C VDTBH #### [facility] [address] [address] [address] Ember Teague NEUT # 4.8 103/ul Normal 1.4-6.5 [facility] Comment on above: Performed By: #### C VDTBH #### [facility] [address] [address] [address] Ember Teague Neutrophils/100 WBC (Bld) 59.7 % Normal 43.0-75.0 [facility] Comment on above: Performed By: #### C VDTBH #### [facility] [address] [address] [address] Ember Teague Platelet mean volume (Bld) [Entitic vol] 9.3 fL Critically low 9.5-13.5 [facility] Comment on above: Performed By: #### C VDTBH #### [facility] [address] [place] [address] Dr. Ember Teague PLT 227 103/ul Normal 150-450 [facility] Comment on above: Performed By: #### C VDTBH #### [facility] [address] [address] [address] Ember Teague RBC 3.40 106/ul Critically low 4.20-5.40 [facility] Comment on above: Performed By: #### C VDTBH #### [facility] [address] [place] [address] Dr. Ember Teague WBC 8.0 103/ul Normal 4.0-11.0 [facility] Comment on above: Performed By: #### C VDTBH #### [facility] [address] [place] [address] Dr. Ember Teague MRI LSPINE WO CONon [...] YANET HUERTA Date: 2022-06-25 08:45 Normal [facility] RENAL FUNCTION PANELon 06-25 Albumin [Mass/Vol] 3.9 g/dL Normal 3.4-5.0 [facility] Comment on above: Performed By: #### P THINT #### [facility] [address] [address] [address] Ember Teague Calcium [Mass/Vol] 9.5 mg/dL Normal 8.5-10.1 [facility] Comment on above: Performed By: #### P THINT #### [facility] [address] [address] [address] Ember Teague Chloride [Moles/Vol] 102 mmol/L Normal 98-107 [facility] Comment on above: Performed By: #### P THINT #### [facility] [address] [address] [address] Ember Teague CO2 [Moles/Vol] 23.8 mmol/L Normal 21.0-32.[address] [facility] Comment on above: Performed By: #### P THINT #### [facility] [address] [address] [address] Ember Teague Creatinine [Mass/Vol] 1.75 mg/dL Critically high 0.55-1.02 [facility] Comment on above: Performed By: #### P THINT #### [facility] [address] [address] [address] Ember Teague EGFR-AF LUXEMBOURGER 34 mL/min/1.73m2 Critically low >=60 [facility] Comment on above: Performed By: #### P THINT #### [facility] [address] [address] [address] Ember Teague EGFR-NON AF LUXEMBOURGER 28 mL/min/1.73m2 Critically low >=60 [facility] Comment on above: Performed By: #### P THINT #### [facility] [address] [address] [address] Ember Teague Glucose [Mass/Vol] 199 mg/dL Critically high 74-106 T [facility] Comment on above: Performed By: #### P THINT #### [facility] [address] [address] [address] Ember Teague Phosphate [Mass/Vol] 4.3 mg/dL Normal 2.6-4.7 [facility] Comment on above: Performed By: #### P THINT #### [facility] [address] [address] [address] Ember Teague Potassium [Moles/Vol] 4.9 mmol/L Normal 3.5-5.1 [facility] Comment on above: Performed By: #### P THINT #### [facility] [address] [address] [address] Ember Teague Sodium [Moles/Vol] 135 mmol/L Critically low 136-145 Th [facility] Comment on above: Performed By: #### P THINT #### [facility] [address] [address] [address] Ember Teague Urea nitrogen [Mass/Vol] 34.0 mg/dL Critically high 7.0-18.0 [facility] Comment on above: Performed By: #### P THINT #### [facility] [address] [place] [address] Dr. Ember Teague VITAMIN D 25 OHon 06-25-2022 VIT D 25-OH 40.6 ng/mL Normal [facility] Comment on above: Performed By: #### P THINT #### [facility] [address] [place] [address] Dr. Ember Teague VIT D RANGES SEE BELOW Normal [facility] Comment on above: Result Comment: <20 ng/mL Vit D deficient 20 - <30 ng/mL Vit D insufficient 30 - 100 ng/mL Vit D sufficient >100 ng/mL Potential Toxicity Performed By: #### P THINT #### [facility] [address] [place] [address] Dr. Ember Teague Covid-19 PCR (CVDTBH)on 06-07 SARS-CoV-2 (COVID-19) RNA ALEXX+probe Ql (Unsp spec) Not detected Normal NOT DETECTED [facility] Comment on above: Result Comment: This test is not yet approved or cleared by the [place] FDA. When there are no FDA-approved or cleared tests available, and other criteria are met, FDA can make tests available under an emergency access mechanism called an Emergency Use Authorization (EUA). The EUA for this test is supported by the [place] of Health and Human Service's (HHS's) declaration [...] SARS-CoV-2. Performed By: #### C VDTBH #### [facility] [address] [place] [address] LSPINE WO CONon [...] by: YANET HUERTA Date: 2022-06-01 18:02 Normal [facility] XR LSPINE MIN 4 VIEWSon [...] YANET HUERTA Date: 2022-05-21 15:25 Normal [facility] PTH INTACTon 05-03-2022 PTH, Intact 60 pg/mL Normal 15-65 [facility] Comment on above: Performed By: #### C VDTBH #### [facility] [address] [address] [address] Ember Teague VIT D 25-OH LABCORPon 2021 Vitamin D, 25-Hydroxy 26.1 ng/mL Critically low 30.0-100.0 [facility] Comment on above: Result Comment: Sara min D deficiency has been defined by the [place] of Medicine and an Endocrine Society practice guideline as a level of serum 25-OH vitamin D less than 20 ng/mL (1,2). The Endocrine Society went on to further define vitamin D insufficiency as a level between 21 and 29 ng/mL (2). 1. IOM ([place] of Medicine). 2010. Dietary reference intakes for calcium and D. [place]: The National Academies Press. 2. Sherice MF, Wendy WILSON, Huan ZHONG, et al. Evaluation, treatment, and prevention of vitamin D deficiency: an Endocrine Society clinical practice guideline. JCEM. 2010; 96(7):1911-30. Performed By: #### R ENAL #### [facility] [address] [place] [address] Dr. Ember Teague FERRITINon 05-02-2022 Ferritin [Mass/Vol] 590.0 ng/mL Critically high 8.0-252.0 [facility] Comment on above: Performed By: #### R ENAL #### [facility] [address] [address] [address] Ember Teague HEMOGRAM AND PLATELon 2021 Hematocrit (Bld) [Volume fraction] 28.4 % Critically low 36.0-48.0 [facility] Comment on above: Performed By: #### C VDTBH #### [facility] [address] [address] [address] Ember Teague Hemoglobin (Bld) [Mass/Vol] 9.6 g/dL Critically low 12.0-16.0 [facility] Comment on above: Performed By: #### C VDTBH #### [facility] [address] [place] [address] Dr. Ember Teague MCH (RBC) [Entitic mass] 31.0 pg Normal 26.7-34.0 [facility] Comment on above: Performed By: #### C VDTBH #### [facility] [address] [place] [address] Dr. Ember Teague MCHC (RBC) [Mass/Vol] 33.8 g/dL Normal 29.9-35.2 [facility] Comment on above: Performed By: #### C VDTBH #### [facility] [address] [place] [address] Dr. Ember Teague MCV (RBC) [Entitic vol] 91.6 fL Normal 81.0-99.0 [facility] Comment on above: Performed By: #### C VDTBH #### [facility] [address] [place] [address] Dr. Ember Teague PLT 189 103/ul Normal 150-450 [facility] Comment on above: Performed By: #### C VDTBH #### [facility] [address] [place] [address] Dr. Ember Teague RBC 3.10 106/ul Critically low 4.20-5.40 [facility] Comment on above: Performed By: #### C VDTBH #### [facility] [address] [place] [address] Dr. Ember Teague WBC 6.2 103/ul Normal 4.0-11.0 [facility] Comment on above: Performed By: #### C VDTBH #### [facility] [address] [place] [address] Dr. Ember Teague IRON AND TIBCon 05-02-2022 % SATURATION 34.3 % Normal [facility] Comment on above: Performed By: #### R ENAL #### [facility] [address] [place] [address] Dr. Ember Teague Iron [Mass/Vol] 69.0 ug/dL Normal 50.0-170.0 [facility] Comment on above: Performed By: #### R ENAL #### [facility] [address] [place] [address] Dr. Ember Teague TIBC DIRECT 201.0 ug/dL Critically low 250.0-450.0 [facility] Comment on above: Performed By: #### R ENAL #### [facility] [address] [place] [address] Dr. Ember Teague MAGNESIUMon 05-02-2022 Magnesium [Mass/Vol] 1.7 mg/dL Critically low 1.8-2.4 [facility] Comment on above: Performed By: #### C VDTBH #### [facility] [address] [place] [address] Dr. Ember Teague RENAL FUNCTION PANELon 05-02 Albumin [Mass/Vol] 3.6 g/dL Normal 3.4-5.0 [facility] Comment on above: Performed By: #### C VDTBH #### [facility] [address] [place] [address] Dr. Ember Teague Calcium [Mass/Vol] 9.2 mg/dL Normal 8.5-10.1 [facility] Comment on above: Performed By: #### C VDTBH #### [facility] [address] [place] [address] Dr. Ember Teague Chloride [Moles/Vol] 107 mmol/L Normal 98-107 [facility] Comment on above: Performed By: #### C VDTBH #### [facility] [address] [place] [address] Dr. Ember Teague CO2 [Moles/Vol] 21.2 mmol/L Normal 21.0-32.0 [facility] Comment on above: Performed By: #### C VDTBH #### [facility] [address] [place] [address] Dr. Ember Teague Creatinine [Mass/Vol] 1.75 mg/dL Critically high 0.55-1.02 [facility] Comment on above: Performed By: #### C VDTBH #### [facility] [address] [address] [address] Ember Teague EGFR-AF LUXEMBOURGER 34 mL/min/1.73m2 Critically low >=60 [facility] Comment on above: Performed By: #### C VDTBH #### [facility] [address] [address] [address] Ember Teague EGFR-NON AF LUXEMBOURGER 28 mL/min/1.73m2 Critically low >=60 [facility] Comment on above: Performed By: #### C VDTBH #### [facility] [address] [address] [address] Ember Teague Glucose [Mass/Vol] 193 mg/dL Critically high 74-106 [facility] Comment on above: Performed By: #### C VDTBH #### [facility] [address] [address] [address] Ember Teague Phosphate [Mass/Vol] 4.2 mg/dL Normal 2.6-4.7 [facility] Comment on above: Performed By: #### C VDTBH #### [facility] [address] [address] [address] Ember Teague Potassium [Moles/Vol] 5.1 mmol/L Normal 3.5-5.1 [facility] Comment on above: Performed By: #### C VDTBH #### [facility] [address] [address] [address] Ember Teague Sodium [Moles/Vol] 139 mmol/L Normal 136-145 [facility] Comment on above: Performed By: #### C VDTBH #### [facility] [address] [address] [address] Ember Teague Urea nitrogen [Mass/Vol] 34.0 mg/dL Critically high 7.0-18.0 [facility] Comment on above: Performed By: #### C VDTBH #### [facility] [address] [address] [address] Ember Teague UA RANDOM W/MICROSCOPICon BACTERIA SMALL Abnormal NONE SEEN [facility] Comment on above: Performed By: #### C VDTBH #### [facility] [address] [place] [address] Dr. Ember Teague Bilirubin Ql (U) Negative Normal NEGATIVE [facility] Comment on above: Performed By: #### C VDTBH #### [facility] [address] [address] [address] Ember Teague CAST NONE SEEN Normal NONE SEEN [facility] Comment on above: Performed By: #### C VDTBH #### [facility] [address] [place] [address] Dr. Ember Teague Clarity (U) CLEAR Normal CLEAR [facility] Comment on above: Performed By: #### C VDTBH #### [facility] [address] [place] [address] Dr. Ember Teague Color (U) LT. YELLOW Normal YELLOW [facility] Comment on above: Performed By: #### C VDTBH #### [facility] [address] [place] [address] Dr. Ember Teague Crystals LM Nom (Urine sed) NONE SEEN Normal NONE SEEN [facility] Comment on above: Performed By: #### C VDTBH #### [facility] [address] [place] [address] Dr. Ember Teague Epithelial cells LM Ql (Urine sed) MODERATE Abnormal NONE SEEN /RARE [facility] Comment on above: Performed By: #### C VDTBH #### [facility] [address] [place] [address] Dr. Ember Teague Glucose Ql (U) Negative Normal NEGATIVE [facility] Comment on above: Performed By: #### C VDTBH #### [facility] [address] [place] [address] Dr. Ember Teague Hemoglobin Ql (U) Negative Normal NEGATIVE [facility] Comment on above: Performed By: #### C VDTBH #### [facility] [address] [place] [address] Dr. Ember Teague Ketones Ql (U) Negative Normal NEGATIVE [facility] Comment on above: Performed By: #### C VDTBH #### [facility] [address] [place] [address] Dr. Ember Teague LEUKOCYTES TRACE Abnormal NEGATIVE [facility] Comment on above: Performed By: #### C VDTBH #### [facility] [address] [place] [address] Dr. Ember Teague MUCOUS NONE SEEN Normal NONE SEEN [facility] Comment on above: Performed By: #### C VDTBH #### [facility] [address] [place] [address] Dr. Ember Teague Nitrite Ql (U) Negative Normal NEGATIVE [facility] Comment on above: Performed By: #### C VDTBH #### [facility] [address] [place] [address] Dr. Ember Teague pH (U) 5.0 [pH] Normal 5-9 [facility] Comment on above: Performed By: #### C VDTBH #### [facility] [address] [place] [address] Dr. Ember Teague RBC NONE SEEN Abnormal 0-2 [facility] Comment on above: Performed By: #### C VDTBH #### [facility] [address] [place] [address] Dr. Ember Teague SPEC GRAVITY 1.015 Normal 1.005-<=1.025 [facility] Comment on above: Performed By: #### C VDTBH #### [facility] [address] [place] [address] Dr. Ember Teague UA PROTEIN TRACE Normal NEGATIVE/ TRACE [facility] Comment on above: Performed By: #### C VDTBH #### [facility] [address] [place] [address] Dr. Ember Teague Urobilinogen Qn (U) 0.2 {Esau'U}/dL Normal 0.2 - 1. 0 [facility] Comment on above: Performed By: #### C VDTBH #### [facility] [address] [place] [address] Dr. Ember Teague WBC 0-2 Abnormal NONE SEEN [facility] Comment on above: Performed By: #### C VDTBH #### [facility] [address] [place] [address] Dr. Ember Teague URIC ACID SERUMon 05-02-2022 Urate [Mass/Vol] 4.4 mg/dL Normal 2.6-6.0 [facility] Comment on above: Performed By: #### C BC #### [facility] [address] [place] [address] Dr. Ember Teague URINE T PROTEIN CREAT RATIOo n 05-02-2022 Protein (U) [Mass/Vol] 33.7 mg/dL Critically high <=12.0 [facility] Comment on above: Performed By: #### C VDTBH #### [facility] [address] [place] [address] Dr. Ember Teague UR PROT CREAT RAT 0.69 Normal [facility] Comment on above: Performed By: #### C VDTBH #### [facility] [address] [place] [address] Dr. Ember Teague URINE CREAT 48.93 mg/dL Normal 20.00-300.00 [facility] Comment on above: Performed By: #### C VDTBH #### [facility] [address] [place] [address] Dr. Ember Teague Vital Signs Date Time Vital Sign Value Performing Clinician Facility 11-18-2023 10:00-0500 Body height 168.91 cm Ron Doreen Other [facility] [employer] Other 11-18-2023 10:00-0500 Body mass index (BMI) [Ratio] 29.85 kg/m2 Ron Doreen Other [facility] Other 11-18-2023 10:00-0500 Body temperature 97.3 [degF] Ron Doreen Other [facility] Other 11-18-2023 10:00-0500 Body weight 85.19 kg Ron Doreen Other [facility] Other 11-18-2023 10:00-0500 Diastolic blood pressure 79 mm[Hg] Ron Doreen Other [facility] Other 11-18-2023 10:00-0500 Respiratory rate 18 /min Ron Doreen Other [facility] Other 11-18-2023 10:00-0500 SaO2% (BldA) [Mass fraction] 98 % Ron Doreen Other [facility] Other 11-18-2023 10:00-0500 Systolic blood pressure 149 mm[Hg] Ron Doreen Other [facility] Other 11-04-2023 11:00-0500 Body height 168.91 cm Ron Doreen Other [facility] Other 11-04-2023 11:00-0500 Body mass index (BMI) [Ratio] 30.17 kg/m2 Ron Doreen Other [facility] Other 11-04-2023 11:00-0500 Body temperature 97.6 [degF] Ron Doreen Other [facility] Other 11-04-2023 11:00-0500 Body weight 86.09 kg Ron Doreen Other [facility] Other 11-04-2023 11:00-0500 Diastolic blood pressure 76 mm[Hg] Ron Doreen Other [facility] Other 11-04-2023 11:00-0500 Respiratory rate 18 /min Ron Doreen Other [facility] Other 11-04-2023 11:00-0500 SaO2% (BldA) [Mass fraction] 98 % Ron Doreen Other [facility] Other 11-04-2023 11:00-0500 Systolic blood pressure 153 mm[Hg] Ron Doreen Other [facility] Other 10-15-2023 13:00-0500 Body height 168.91 cm Ron Doreen Other [facility] Other 10-15-2023 13:00-0500 Body mass index (BMI) [Ratio] 29.82 kg/m2 Ron Doreen Other [facility] Other 10-15-2023 13:00-0500 Body temperature 97.5 [degF] Ron Doreen Other [facility] Other 10-15-2023 13:00-0500 Body weight 85.1 kg Ron Doreen Other [facility] Other 10-15-2023 13:00-0500 Diastolic blood pressure 68 mm[Hg] Ron Doreen Other [facility] Other 10-15-2023 13:00-0500 Respiratory rate 18 /min Ron Doreen Other [facility] Other 10-15-2023 13:00-0500 SaO2% (BldA) [Mass fraction] 98 % Ron Doreen Other [facility] Other 10-15-2023 13:00-0500 Systolic blood pressure 113 mm[Hg] Ron Doreen Other [facility] Other 08-27-2023 09:40-0500 Body height 168.91 cm Aziz Bakhous Other [facility] Other 08-27-2023 09:40-0500 Body mass index (BMI) [Ratio] 30.2 kg/m2 Aziz Bakhous Other [facility] Other 08-27-2023 09:40-0500 Body temperature 96.7 [degF] Aziz Bakhous Other [facility] Other 08-27-2023 09:40-0500 Body weight 86.18 kg Aziz Bakhous Other [facility] Other 08-27-2023 09:40-0500 Diastolic blood pressure 72 mm[Hg] Aziz Bakhous Other [facility] Other 08-27-2023 09:40-0500 Respiratory rate 18 /min Azduc Bakhous Other [facility] Other 08-27-2023 09:40-0500 SaO2% (BldA) [Mass fraction] 98 % Aziz Bakhous Other [facility] Other 08-27-2023 09:40-0500 Systolic blood pressure 153 mm[Hg] Aziz Bakhous Other [facility] Other 08-15-2023 10:20-0500 Body height 168.91 cm Ron Doreen Other [facility] Other 08-15-2023 10:20-0500 Body mass index (BMI) [Ratio] 30.2 kg/m2 Ron Doreen Other [facility] Other 08-15-2023 10:20-0500 Body temperature 97.1 [degF] Ron Doreen Other [facility] Other 08-15-2023 10:20-0500 Body weight 86.18 kg Ron Doreen Other [facility] Other 08-15-2023 10:20-0500 Diastolic blood pressure 79 mm[Hg] Ron Doreen Other [facility] Other 08-15-2023 10:20-0500 Respiratory rate 18 /min Ron Doreen Other [facility] Other 08-15-2023 10:20-0500 SaO2% (BldA) [Mass fraction] 98 % Ron Doreen Other [facility] Other 08-15-2023 10:20-0500 Systolic blood pressure 164 mm[Hg] Ron Doreen Other [facility] Other 08-13-2023 15:40-0500 Body height 168.91 cm Ron Doreen Other [facility] Other 08-13-2023 15:40-0500 Body mass index (BMI) [Ratio] 30.24 kg/m2 Ron Doreen Other [facility] Other 08-13-2023 15:40-0500 Body temperature 97.2 [degF] Ron Doreen Other [facility] Other 08-13-2023 15:40-0500 Body weight 86.27 kg Ron Doreen Other [facility] Other 08-13-2023 15:40-0500 Diastolic blood pressure 79 mm[Hg] Ron Doreen Other [facility] Other 08-13-2023 15:40-0500 Respiratory rate 18 /min Ron Doreen Other [facility] Other 08-13-2023 15:40-0500 SaO2% (BldA) [Mass fraction] 98 % Ron Doreen Other [facility] Other 08-13-2023 15:40-0500 Systolic blood pressure 186 mm[Hg] Ron Doreen Other [facility] Other 08-01-2023 13:00-0400 Body height 168.91 cm Ron Doreen Other [facility] Other 08-01-2023 13:00-0400 Body mass index (BMI) [Ratio] 30.55 kg/m2 Ron Doreen Other [facility] Other 08-01-2023 13:00-0400 Body temperature 97.8 [degF] Ron Doreen Other [facility] Other 08-01-2023 13:00-0400 Body weight 87.18 kg Ron Doreen Other [facility] Other 08-01-2023 13:00-0400 Diastolic blood pressure 72 mm[Hg] Ron Doreen Other [facility] Other 08-01-2023 13:00-0400 Respiratory rate 18 /min Ron Doreen Other [facility] Other 08-01-2023 13:00-0400 SaO2% (BldA) [Mass fraction] 98 % Ron Doreen Other [facility] Other 08-01-2023 13:00-0400 Systolic blood pressure 160 mm[Hg] Ron Doreen Other [employer] Other 06-24-2023 11:40-0400 Body height 168.91 cm Ron Doreen Other [facility] Other 06-24-2023 11:40-0400 Body mass index (BMI) [Ratio] 29.89 kg/m2 Ron Doreen Other [facility] Other 06-24-2023 11:40-0400 Body temperature 97.3 [degF] Orn Doreen Other [facility] Other 06-24-2023 11:40-0400 Body weight 85.28 kg Ron Doreen Other [facility] Other 06-24-2023 11:40-0400 Diastolic blood pressure 75 mm[Hg] Ron Doreen Other [facility] Other 06-24-2023 11:40-0400 Respiratory rate 18 /min Ron Doreen Other [facility] Other 06-24-2023 11:40-0400 SaO2% (BldA) [Mass fraction] 99 % Ron Doreen Other [facility] Other 06-24-2023 11:40-0400 Systolic blood pressure 129 mm[Hg] Ron Doreen Other [facility] Other 06-06-2023 15:20-0400 Body height 168.91 cm Ron Doreen Other [facility] Other 06-06-2023 15:20-0400 Body mass index (BMI) [Ratio] 29.92 kg/m2 Ron Doreen Other [facility] Other 06-06-2023 15:20-0400 Body temperature 96.5 [degF] Ron Doreen Other [facility] Other 06-06-2023 15:20-0400 Body weight 85.37 kg Ron Doreen Other [facility] Other 06-06-2023 15:20-0400 Diastolic blood pressure 49 mm[Hg] Ron Doreen Other [facility] Other 06-06-2023 15:20-0400 Respiratory rate 18 /min Ron Doreen Other [facility] Other 06-06-2023 15:20-0400 SaO2% (BldA) [Mass fraction] 99 % Ron Doreen Other [facility] Other 06-06-2023 15:20-0400 Systolic blood pressure 128 mm[Hg] Ron Doreen Other [facility] Other 04-30-2023 11:40-0400 Body height 168.91 cm Ron Doreen Other [facility] Other 04-30-2023 11:40-0400 Body mass index (BMI) [Ratio] 30.52 kg/m2 Ron Doreen Other [facility] Other 04-30-2023 11:40-0400 Body temperature 96.9 [degF] Ron Doreen Other [facility] Other 04-30-2023 11:40-0400 Body weight 87.09 kg Ron Doreen Other [facility] Other 04-30-2023 11:40-0400 Diastolic blood pressure 80 mm[Hg] Ron Doreen Other [facility] Other 04-30-2023 11:40-0400 Respiratory rate 18 /min Ron Doreen Other [facility] Other 04-30-2023 11:40-0400 SaO2% (BldA) [Mass fraction] 98 % Ron Doreen Other [facility] Other 04-30-2023 11:40-0400 Systolic blood pressure 150 mm[Hg] Ron Doreen Other [facility] Other 04-06-2023 09:00-0400 Body height 168.91 cm Ron Doreen Other [facility] Other 04-06-2023 09:00-0400 Body mass index (BMI) [Ratio] 30.36 kg/m2 Ron Doreen Other [facility] Other 04-06-2023 09:00-0400 Body weight 86.64 kg Ron Doreen Other [facility] Other 04-06-2023 09:00-0400 Diastolic blood pressure 54 mm[Hg] Ron Doreen Other [facility] Other 04-06-2023 09:00-0400 Respiratory rate 18 /min Ron Doreen Other [facility] Other 04-06-2023 09:00-0400 SaO2% (BldA) [Mass fraction] 98 % Ron Doreen Other [facility] Other 04-06-2023 09:00-0400 Systolic blood pressure 144 mm[Hg] Ron Doreen Other [facility] Other 04-02-2023 14:40-0400 Body height 168.91 cm Ron Doreen Other [facility] Other 04-02-2023 14:40-0400 Body mass index (BMI) [Ratio] 30.55 kg/m2 Ron Doreen Other [facility] Other 04-02-2023 14:40-0400 Body temperature 97 [degF] Ron Doreen Other [facility] Other 04-02-2023 14:40-0400 Body weight 87.18 kg Ron Doreen Other [facility] Other 04-02-2023 14:40-0400 Diastolic blood pressure 76 mm[Hg] Ron Doreen Other [facility] Other 04-02-2023 14:40-0400 Respiratory rate 18 /min Ron Doreen Other [facility] Other 04-02-2023 14:40-0400 SaO2% (BldA) [Mass fraction] 98 % Ron Doreen Other [facility] Other 04-02-2023 14:40-0400 Systolic blood pressure 183 mm[Hg] Ron Doreen Other [facility] Other 03-07-2023 09:20-0400 Body height 168.91 cm Ron Doreen Other [facility] Other 03-07-2023 09:20-0400 Body mass index (BMI) [Ratio] 30.52 kg/m2 Ron Doreen Other [facility] Other 03-07-2023 09:20-0400 Body temperature 97.1 [degF] Ron Doreen Other [facility] Other 03-07-2023 09:20-0400 Body weight 87.09 kg Ron Doreen Other [facility] Other 03-07-2023 09:20-0400 Diastolic blood pressure 72 mm[Hg] Ron Doreen Other [facility] Other 03-07-2023 09:20-0400 Respiratory rate 18 /min Ron Doreen Other [facility] Other 03-07-2023 09:20-0400 SaO2% (BldA) [Mass fraction] 97 % Ron Doreen Other [facility] Other 03-07-2023 09:20-0400 Systolic blood pressure 130 mm[Hg] Ron Doreen Other [facility] Other 12-20-2022 13:20-0400 Body height 168.91 cm Ron Doreen Other [facility] Other 12-20-2022 13:20-0400 Body mass index (BMI) [Ratio] 30.68 kg/m2 Ron Doreen Other [facility] Other 12-20-2022 13:20-0400 Body temperature 97.1 [degF] Ron Doreen Other [facility] Other 12-20-2022 13:20-0400 Body weight 87.54 kg Ron Doreen Other [facility] Other 12-20-2022 13:20-0400 Diastolic blood pressure 72 mm[Hg] Ron Doreen Other [facility] Other 12-20-2022 13:20-0400 Respiratory rate 18 /min Ron Doreen Other [facility] Other 12-20-2022 13:20-0400 SaO2% (BldA) [Mass fraction] 99 % Ron Doreen Other [facility] Other 12-20-2022 13:20-0400 Systolic blood pressure 139 mm[Hg] Ron Doreen Other [facility] Other 11-05-2022 14:00-0500 Body height 168.91 cm Ron Doreen Other [facility] Other 11-05-2022 14:00-0500 Body mass index (BMI) [Ratio] 30.59 kg/m2 Ron Doreen Other [facility] Other 11-05-2022 14:00-0500 Body temperature 96.8 [degF] Ron Doreen Other [facility] Other 11-05-2022 14:00-0500 Body weight 87.27 kg Ron Doreen Other [facility] Other 11-05-2022 14:00-0500 Diastolic blood pressure 72 mm[Hg] Ron Doreen Other [facility] Other 11-05-2022 14:00-0500 Respiratory rate 18 /min Ron Doreen Other [facility] Other 11-05-2022 14:00-0500 SaO2% (BldA) [Mass fraction] 98 % Ron Doreen Other [facility] Other 11-05-2022 14:00-0500 Systolic blood pressure 157 mm[Hg] Ron Doreen Other [facility] Other 09-27-2022 16:00-0500 Body height 168.91 cm Jana Monson Other [facility] Other 09-27-2022 16:00-0500 Body mass index (BMI) [Ratio] 30.55 kg/m2 Jana Monson Other [facility] Other 09-27-2022 16:00-0500 Body temperature 96.8 [degF] Jana Monson Other [facility] Other 09-27-2022 16:00-0500 Body weight 87.18 kg Jana Monson Other [facility] Other 09-27-2022 16:00-0500 Diastolic blood pressure 73 mm[Hg] Jana Monson Other [facility] Other 09-27-2022 16:00-0500 Respiratory rate 18 /min Jana Monson Other [facility] Other 09-27-2022 16:00-0500 SaO2% (BldA) [Mass fraction] 98 % Jana Monson Other [facility] Other 09-27-2022 16:00-0500 Systolic blood pressure 159 mm[Hg] Jana Monson Other [facility] Other 08-22-2022 12:00-0500 Body height 168.91 cm Ron Doreen Other [facility] Other 08-22-2022 12:00-0500 Body mass index (BMI) [Ratio] 30.65 kg/m2 Ron Doeren Other [facility] Other 08-22-2022 12:00-0500 Body temperature 96.9 [degF] Ron Doreen Other [facility] Other 08-22-2022 12:00-0500 Body weight 87.45 kg Ron Doreen Other [facility] Other 08-22-2022 12:00-0500 Diastolic blood pressure 75 mm[Hg] Ron Doreen Other [facility] Other 08-22-2022 12:00-0500 Respiratory rate 18 /min Ron Doreen Other [facility] Other 08-22-2022 12:00-0500 SaO2% (BldA) [Mass fraction] 96 % Ron Doreen Other [facility] Other 08-22-2022 12:00-0500 Systolic blood pressure 121 mm[Hg] Ron Doreen Other [facility] Other 05-08-2022 10:20-0400 Body height 168.91 cm Ron Doreen Other [facility] Other 05-08-2022 10:20-0400 Body mass index (BMI) [Ratio] 31.54 kg/m2 Ron Doreen Other [facility] Other 05-08-2022 10:20-0400 Body temperature 97.6 [degF] Ron Doreen Other [facility] Other 05-08-2022 10:20-0400 Body weight 89.99 kg Ron Doreen Other [facility] Other 08-02-2022 10:20-0400 Diastolic blood pressure 68 mm[Hg] Ron Doreen Other [facility] Other 05-08-2022 10:20-0400 Respiratory rate 18 /min Ron Doreen Other [facility] Other 05-08-2022 10:20-0400 SaO2% (BldA) [Mass fraction] 98 % Ron Doreen Other [facility] Other 05-08-2022 10:20-0400 Systolic blood pressure 131 mm[Hg] Ron Doreen Other [facility] Other 01-18-2022 10:20-0400 Body height 168.91 cm Ron Doreen Other [facility] Other 01-18-2022 10:20-0400 Body mass index (BMI) [Ratio] 31 kg/m2 Ron Doreen Other [facility] Other 01-18-2022 10:20-0400 Body temperature 96.4 [degF] Ron Doreen Other [facility] Other 01-18-2022 10:20-0400 Body weight 88.45 kg Ron Doreen Other [facility] Other 01-18-2022 10:20-0400 Diastolic blood pressure 74 mm[Hg] Ron Doreen Other [facility] Other 01-18-2022 10:20-0400 Respiratory rate 18 /min Ron Doreen Other [facility] Other 01-18-2022 10:20-0400 SaO2% (BldA) [Mass fraction] 97 % Ron Doreen Other [facility] Other 01-18-2022 10:20-0400 Systolic blood pressure 170 mm[Hg] Ron Doreen Other [facility] Other Encounters Encounter Date Encounter Type Care Provider Facility Start: 05-25-2024 End: 05-25-2024 ambulatory GREG A PETITTI Not Available Start: 05-11-2024 End: 05-11-2024 ambulatory [facility] Start: 04-21-2024 End: 04-21-2024 ambulatory GREG A PETITTI Not Available Start: 04-16-2024 End: 04-16-2024 ambulatory GA CRESPO Not Available Start: 03-16-2024 End: 03-16-2024 ambulatory GREG A PETITTI Not Available Start: 02-10-2024 End: 02-10-2024 ambulatory [facility] Start: 01-17-2024 End: 01-17-2024 ambulatory [facility] Start: 01-16-2024 End: 01-16-2024 ambulatory GA CRESPO Not Available Start: 12-21-2023 Refill Luis dominique PA-C Work Phone: [facility] Comment on above: Med Refill Start: 11-28-2023 End: 11-28-2023 ambulatory GREG A PETITTI Not Available Start: 11-18-2023 End: 11-18-2023 ambulatory Ron Doreen Other [facility] Other Start: 11-18-2023 Office outpatient visit 15 minutes Ron Doreen [facility] Start: 11-05-2023 End: 11-05-2023 ambulatory GA CRESPO Not Available Start: 11-04-2023 (INJECTION) INJECTION Ron Doreen [facility] Start: 11-04-2023 End: 11-04-2023 ambulatory Ron Doreen Other [facility] Other Start: 10-22-2023 End: 10-22-2023 ambulatory GA CRESPO Not Available Start: 10-15-2023 End: 10-15-2023 ambulatory Ron Doreen Other [facility] Other Start: 10-15-2023 Office outpatient visit 15 minutes Ron Doreen [facility] Start: 10-08-2023 End: 10-08-2023 ambulatory Aziz Bakhous Other [facility] Other Start: 10-08-2023 Telephone encounter Aziz Bakhous [facility] Start: 09-15-2023 End: 09-15-2023 ambulatory Ron Doreen Other [facility] Other Start: 09-15-2023 Telephone encounter Ron Doreen [facility] Start: 09-09-2023 End: 09-09-2023 ambulatory Ron Doreen Other [facility] Other Start: 09-09-2023 Telephone encounter Ron Doreen [facility] Start: 08-27-2023 (INJECTION) INJECTION Aziz Bakhous [facility] Start: 08-27-2023 End: 08-27-2023 ambulatory Aziz Bakhous Other [facility] Other Start: 08-15-2023 (INJECTION) INJECTION Ron Doreen [facility] Start: 08-15-2023 End: 08-15-2023 ambulatory Ron Doreen Other [facility] Other Start: 08-13-2023 (INJECTION) INJECTION [facility] D[facility] Start: 08-13-2023 End: 08-13-2023 ambulatory Ron Doreen Other [facility] Start: 08-01-2023 End: 08-01-2023 ambulatory Ron Doreen Other [facility] Other Start: 08-01-2023 Office outpatient visit 15 minutes Ron Doreen [facility] Start: 06-24-2023 End: 06-24-2023 ambulatory Ron Doreen Other [facility] Other Start: 06-24-2023 Office outpatient visit 10 minutes Ron Doreen [facility] Start: 06-06-2023 End: 06-06-2023 ambulatory Ron Doreen Other [facility] Other Start: 06-06-2023 Office outpatient visit 15 minutes Ron Doreen [facility] Start: 04-30-2023 End: 04-30-2023 ambulatory Ron Doreen Other [facility] Other Start: 04-30-2023 Office outpatient visit 15 minutes Ron Doreen [facility] Start: 04-06-2023 (INJECTION) INJECTION [facility] D[facility] Start: 04-06-2023 End: 04-06-2023 ambulatory Ron Doreen Other [facility] Start: 04-06-2023 Telephone encounter Ron Doreen [facility] Start: 04-02-2023 End: 04-02-2023 ambulatory Ron Doreen Other [facility] Start: 04-02-2023 Office outpatient visit 15 minutes Ron Doreen [facility] Start: 04-02-2023 Telephone encounter Ron Doreen [facility] Start: 03-07-2023 End: 03-07-2023 ambulatory Ron Doreen Other [facility] Start: 03-07-2023 Office outpatient visit 15 minutes Ron Doreen [facility] Start: 01-22-2023 End: 01-23-2023 ambulatory RON DOREEN Facility:[facility] Start: 12-20-2022 End: 12-20-2022 ambulatory Ron Doreen Other [facility] Other Start: 12-20-2022 Office outpatient visit 15 minutes Ron Doreen [facility] Start: 12-17-2022 End: 12-18-[address] DHRUV RUBI . Facility:[facility] Start: 12-10-2022 End: 12-11-2022 ambulatory RON DOREEN Facility:[facility] Start: 11-20-2022 End: 11-21-[address] BENI APARICIO Facility:[facility] Start: 11-05-2022 End: 11-05-2022 ambulatory Ron Doreen Other [facility] Other Start: 11-05-2022 Office outpatient visit 15 minutes Ron Doreen [facility] Start: 10-29-2022 End: 10-30-[address] JANA MONSON Facility:[facility] Start: 10-24-2022 End: 10-24-[address] LILLIAN ACOSTA . Facility:[facility] Start: 10-24-2022 End: 10-25-[address] DHRUV RUBI . Facility:[facility] Start: 09-27-2022 End: 09-27-2022 ambulatory Jnaa Monson Other [facility] Other Start: 09-27-2022 Office outpatient visit 15 minutes Jana Monson [facility] Start: 09-18-2022 End: 09-19-2022 ambulatory RON DOREEN Facility:[facility] Start: 09-11-2022 End: 09-11-[address] DHRUV RUBI . Facility:[facility] Start: 08-22-2022 End: 08-22-2022 ambulatory Ron Doreen Other [facility] Other Start: 08-22-2022 Office outpatient visit 15 minutes Ron Doreen [facility] Start: 08-13-2022 End: 08-14-2022 ambulatory RON DOREEN Facility:[facility] Start: 06-25-2022 End: 06-26-[address] DHRUV RUBI . Facility:[facility] Start: 06-18-2022 End: 06-18-[address] DHRUV RUBI . Facility:[facility] Start: 06-01-2022 End: 06-02-[address] YANET HUERTA Facility:[facility] Start: 05-28-2022 End: 05-28-2022 ambulatory Ron Doreen Other [facility] Other Start: 05-28-2022 Telephone encounter Ron Doreen [facility] Start: 05-21-2022 End: 05-22-[address] DHRUV RUBI . Facility:[facility] Start: 05-16-2022 End: 05-16-2022 ambulatory Ron Doreen Other [facility] Start: 05-16-2022 Telephone encounter Ron Doreen [facility] Start: 05-10-2022 End: 05-10-2022 ambulatory Ron Doreen Other [facility] Other Start: 05-10-2022 Telephone encounter Ron Doreen [facility] Start: 05-08-2022 End: 05-08-2022 ambulatory Ron Doreen Other [facility] Other Start: 05-08-2022 Office outpatient visit 25 minutes Ron Doreen [facility] Start: 05-02-2022 End: 05-03-2022 ambulatory RON DOREEN Facility: Start: 04-24-2022 End: 04-24-2022 ambulatory Mary Anne Ackerman Other [facility] Start: 04-24-2022 Telephone encounter Mary Anne Ackerman [facility] Start: 01-18-2022 End: 01-18-2022 ambulatory Ron Doreen Other [facility] Start: 01-18-2022 Office outpatient visit 25 minutes Ron Doreen [facility] Start: 05-21-2017 End: 05-22-2017 Ambulatory DEFAULT PHYSICIAN Facility:[facility] Procedures Date Procedure Procedure Detail [...] 03-19-2024 Adult BMI Screening Adult BMI Screening [facility] Start: 03-19-2024 Tobacco Screening Tobacco Screening [facility] Start: 06-07-2023 COVID-19 Vaccine ( season) COVID-19 Vaccine ( season) [facility] Start: 06-07-2023 Influenza vaccination Influenza Vaccine [facility] Start: 12-28-2021 Depression Screening Depression Screening [facility] Start: 2009 Fall Risk Screening Fall Risk Screening [facility] Start: 1994 Administration of varicella zoster vaccine Zoster (Shingles) Vaccine (1 of 2) [facility] Start: 12-15-1963 DTaP,Tdap and Td Vaccines (1 - Tdap) DTaP,Tdap and Td Vaccines (1 - Tdap) [facility] Start: 1962 Adult BMI Follow Up Plan Adult BMI Follow Up Plan [facility] Start: 1944 Medicare Annual Wellness Visit Medicare Annual Wellness Visit [facility] Immunizations Immunization Date Immunization Notes Care Provider Lai montemayor 07-18-2020 Seasonal trivalent influenza vaccine, adjuvanted, preservative free Luis Kb PA-C Work Phone: [facility] 07-18-2020 influenza virus vacc ine, unspecified formulation Luis Kb PA-C Work Phone: [facility] 07-22-2019 Seasonal trivalent influenza vaccine, adjuvanted, preservative free Luis Kb PA-C Work Phone: [facility] 07-14-2018 Seasonal trivalent influenza vaccine, adjuvanted, preservative free Luis Kb PA-C Work Phone: [facility] 07-15-2017 pneumococcal conjuga te vaccine, 13 valent Luis Kb PA-C Work Phone: [facility] 07-08-2017 influenza, high dose seasonal, preservative-free Luis Kb PA-C Work Phone: [facility] 07-25-2016 influenza, high dose seasonal, preservative-free Luis Kb PA-C Work Phone: [facility] 07-11-2015 influenza, high dose seasonal, preservative-free Luis Kb PA-C Work Phone: [facility] 07-16-2014 influenza, seasonal, injectable Luis Kb PA-C Work Phone: [facility] 07-10-2013 influenza, seasonal, injectable Luis Kb PA-C Work Phone: [facility] 08-08-2012 influenza virus vacc ine, unspecified formulation Luis Kb PA-C Work Phone: [facility] 08-08-2012 pneumococcal polysaccharide vaccine, 23 valent Luis Kb PA-C Work Phone: [facility] 07-11-2011 influenza virus vacc ine, unspecified formulation Luis Kb PA-C Work Phone: [employer] 08-15-2010 influenza virus vacc ine, unspecified formulation Luis Kb PA-C Work Phone: [employer] 07-26-2009 influenza virus vacc ine, unspecified formulation Luis Kb PA-C Work Phone: [employer] 08-04-2008 influenza virus vacc ine, unspecified formulation Luis Kb PA-C Work Phone: [employer] 08-13-2007 influenza virus vacc ine, unspecified formulation Luis Kb PA-C Work Phone: [employer] 08-11-2004 influenza virus vacc ine, unspecified formulation Luis Kb PA-C Work Phone: [employer] 08-09-2003 influenza virus vacc ine, unspecified formulation Luis Kb PA-C Work Phone: [employer] 08-09-2003 pneumococcal polysaccharide vaccine, 23 valent Luis Kb PA-C Work Phone: [employer] Payers Date Payer Category Payer Medicare [employer] MEDICARE A [employer] MEDICARE PLAN (HMO) [id number] 2021-Present [phone] [address] [place] [address] [id number] 1960 Medicare [id number] 1944 Unknown [id number] 2.16.840.1.180042.3.579.2.593 1944 Unknown [id number] 2.16.840.1.891273.3.579.2.593 1944 Unknown [id number] 2.16.840.1.001839.3.579.2.593 1944 Unknown [id number] 2.16.840.1.366890.3.579.2.593 1944 Unknown [id number] 2.16.840.1.082543.3.579.2.593 1944 Unknown [id number] 2.16.840.1.444973.3.579.2.593 1944 Unknown [id number] 2.16.840.1.896088.3.579.2.593 1944 Unknown [id number] 2.16.840.1.985771.3.579.2.593 1944 Unknown [id number] 2.16.840.1.172546.3.579.2.593 1944 Unknown [id number] 2.16.840.1.418304.3.579.2.593 1944 Unknown [id number] 2.16.840.1.240848.3.579.2.593 1944 Unknown [id number] 2.16.840.1.174075.3.579.2.593 1944 Unknown [id number] 2.16.840.1.344559.3.579.2.593 1944 Unknown [id number] 2.16.840.1.092795.3.579.2.593 1944 Unknown [id number] 2.16.840.1.844760.3.579.2.593 1944 Unknown [id number] 2.16.840.1.812694.3.579.2.593 1944 Unknown [id number] 2.16.840.1.947482.3.579.2.1286 1944 Unknown [id number] 2.16.840.1.783336.3.579.2.1259 1944 Unknown [id number] 2.16.840.1.976742.3.579.2.1259 1944 Unknown [id number] 2.16.840.1.771624.3.579.2.1259 1944 Unknown [id number] 2.16.840.1.910302.3.579.2.1259 1944 Unknown [id number] 2.16.840.1.554673.3.579.2.9 1944 Unknown [id number] 2.16.840.1.246967.3.579.2.1259 1944 Unknown [id number] 2.16.840.1.373969.3.579.2.9 1944 Unknown [id number] 2.16.840.1.157201.3.579.2.1258 Unknown Social History Date Type Detail Facility Unknown if ever smoked [facility] Other Start: 12-28-2020 End: 03-19-2023 Sex Assigned At [facility] Start: 09-20-2022 Tobacco smoking status [facility] Ex-smoker [facility] End: 10-07-1969 History of tobacco use Current smoker [facility] End: 10-07-1969 History of tobacco use Cigarette Smoker [facility] Start: 09-20-2022 Tobacco use and exposure Smokeless tobacco non-user [facility] Start: 03-19-2023 Alcohol intake Ex-drinker (finding) [facility] Start: 12-28-2020 End: 03-19-2023 History of Social function [facility] Do you belong to any clubs or organizations such as gnosticist groups, unions, fraternal or athletic groups, or school groups? No [facility] Are you now , , , , never or living with a partner? [facility] How hard is it for y ou to pay for the very basics like food, housing, medical care, and heating Not hard at all [facility] Do you feel stress - tense, restless, nervous, or anxious, or unable to sleep at night because your mind is troubled all the time - these days [OSQ] Not at all [facility] Start: 1945 Sex Assigned At Not on file [facility] Goals Date Patient Goal Desired Activity /State Personal health goal Comment on above: Formatting of this n ote might be different from the original. Evaluation of progress towards goal: return home with homecare and support from [facility], children and grandchildren Clinical Notes 01-18-2022 to 05-11-2024 Note Date & Type Note Facility 05-11-2024 Note [facility] Card[facility] Clinic Note Chief Complaint: Patient here for follow up [facility] discharge back in February 2024. She [...] kidney disease, Coronary artery disease, Diabetes mellitus ([facility]), Hyperlipidemia, and Hypertension. Surgical History She has [...] ventricular gram/pressure Indications (more content not included)... [facility] 02-10-2024 Note [facility] Cardiology Clinic Note Chief Complaint: Patient here to re-establish care. She was recently admitted to [facility] for hypertension. Had CABG since her [...] longstanding diabetic. PAST MEDICAL HISTORY: Diabetes mellitus ([facility]) Hypertensive urgency Arthritis Dyspnea Chest pain Unstable angina ([facility]) Obesity (BMI 30-39.9) H/O four vessel coronary artery bypass graft Paroxysmal atrial fibrillation ([facility]) Atherosclerosis of [place] coronary artery of [place] heart without angina pectoris Obesity (BMI 30-39.9) [...] office She is to follow-up with her patient support tech given her chronic kidney disease Return to clinic in 3 months or sooner should problems arise Carlie Catherine MD (more content not included)... [facility] 11-18-2023 Evaluation note Encounter Date Diagnosis [...] potassium improved with dietary restriction and Lasix. [facility] Other 01-29-2024 Evaluation note* Encounter Date Diagnosis Assessment Notes Treatment Notes Treatment Clinical Notes Oct, Anemia of renal disease (ICD-10 - D63.1) Oct, CKD (chronic kidney disease) stage 4, GFR 15-29 ml/min (ICD-10 - N18.4) [facility] Other 01-09-2024 Evaluation note* Encounter Date Diagnosis [...] potassium improved with dietary restriction and Lasix. [facility] Other 12-04-2023 Evaluation note* Encounter Date Diagnosis [...] 4, GFR 15-29 ml/min (ICD-10 - N18.4) [facility] Other 11-21-2023 Evaluation note* Encounter Date Diagnosis Assessment Notes Treatment Notes Treatment Clinical Notes Aug, Anemia of renal disease (ICD-10 - D63.1) Aug, CKD (chronic kidney disease) stage 4, GFR 15-29 ml/min (ICD-10 - N18.4) [facility] 11-09-2023 Evaluation note* Encounter Date Diagnosis [...] of kidney mass hydronephrosis or kidney stones. [facility] Other 10-26-2023 Evaluation note* Encounter Date Diagnosis [...] potassium improved with dietary restriction and Lasix. [facility] 09-18-2023 Evaluation note* Encounter Date Diagnosis [...] potassium improved with dietary restriction and Lasix. [facility] Other 08-31-2023 Evaluation note* Encounter Date Diagnosis [...] potassium improved with dietary restriction and Lasix. [facility] Other 07-25-2023 Evaluation note* Encounter Date Diagnosis [...] to normal with dietary restriction and Lasix. [facility] Other 07-01-2023 Evaluation note* Encounter Date Diagnosis Assessment Notes Treatment Notes Treatment Clinical Notes Apr, CKD (chronic kidney disease) stage 4, GFR 15-29 ml/min (ICD-10 - N18.4) Apr, Anemia of renal disease (ICD-10 - D63.1) [facility] Other 06-27-2023 Evaluation note* Encounter Date Diagnosis [...] to normal with dietary restriction and Lasix. [facility] Other 06-01-2023 Evaluation note* Encounter Date Diagnosis [...] potassium diet and provide information about it. [facility] Other 03-16-2023 Evaluation note* Encounter Date Diagnosis [...] to Continue Vit D 5000 units daily [facility] Other 01-30-2023 Evaluation note* Encounter Date Diagnosis [...] to Continue Vit D 5000 units daily [facility] Other 12-22-2022 Evaluation note* Encounter Date Diagnosis [...] to Continue Vit D 5000 units daily [facility] Other 11-16-2022 Evaluation note* Encounter Date Diagnosis [...] to Continue Vit D 5000 units daily [facility] Other 08-04-2022 Evaluation note* Encounter Date Diagnosis Assessment Notes Treatment Notes Treatment Clinical Notes May, Hypertensive chronic kidney disease with stage 1 through stage 4 chronic kidney disease, or unspecified chronic kidney disease (ICD-10 - I12.9) [facility] Other 08-02-2022 Evaluation note* Encounter Date Diagnosis [...] to Continue Vit D 5000 units daily [facility] Other 07-19-2022 Evaluation note* Encounter Date Diagnosis Assessment Notes Treatment Notes Treatment Clinical Notes Apr, Hypertensive chronic kidney disease with stage 1 through stage 4 chronic kidney disease, or unspecified chronic kidney disease (ICD-10 - I12.9) [facility] Other 04-14-2022 Evaluation note* Encounter Date Diagnosis [...] to take Vit D 1000 units daily [facility] Other Evaluation noteNo InformationNort [employer] Other Evaluation note* Diagnosis Atherosclerosis of [place] coronary artery of [place] heart without angina 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 Hypertensive urgency Shortness of breath Paroxysmal atrial fibrillation (CMS-HCC) Atrial fibrillation Localized edema Edema [facility] in [facility] N[facility] - Reported* Type Description [...] History SEE ABOVE Hospitalization History COVID 09/2020 [facility] Other history general Narrative - Reported* Type [...] History SEE ABOVE Hospitalization History COVID 09/2020 [facility] Other history general Narrative - Reported* Type [...] History SEE ABOVE Hospitalization History COVID 09/2020 [facility] Other History general Narrative - [employer]No[employer] Other History general Narrative - Reported* Type [...] History SEE ABOVE Hospitalization History COVID 09/2020 [facility] Other InstructionsNot on filedocumented in this encounter [employer] Summary Purpose Family History No Family [...] content) DATE CREATED AUTHOR 04/02/2018 [facility] DATE CREATED AUTHOR AUTHOR'S ORGANIZ ATION 01/27/2023 [facility] DATE CREATED AUTHOR AUTHOR'S ORGANIZ ATION 01/18/2024 [facility] DATE CREATED AUTHOR AUTHOR'S ORGANIZ ATION 05/12/2024 [facility] DATE CREATED AUTHOR AUTHOR'S ORGANIZ ATION 05/26/2024 [facility] EPIC REASON FOR VISIT (unrecogniz ed section and content) Reason Comments Med Refill Care Teams (unrecognized sec tion and content) 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 [employer] [facility] provides no warranty or guarantee of the accuracy or completeness of information in this document.
== END 2024-06-24 07:50 | disposition home or self-care (01) ==
LOC: CARD 07:49
PROVIDERS: PCP Family Medicine; Visit Provider Internal Medicine Interventional Cardiology
DX: R01.2 Other cardiac sounds (principal); I05.0 Rheumatic mitral stenosis
CPT/HCPCS: 93306

== ENCOUNTER 2024-09-01 06:24 | Outpatient (OUT) | payer MEDICARE, SELFPAY ==
--- OUTSIDE RECORDS SUMMARY | 2024-09-01 06:29 | XMS_ITS | CCD ---
Author Organization [facility] Care Team Providers Care Rehabilitation Medicine Physician Name Role Phone PHYSICIAN, DEFAULT Unavailable Unavailable [...] Unavailable Dhruv Rubi MD Primary Care Provider [phone] THUAN DELVALLE Attending Unavailable DHRUV RUBI Referring Unavailable DHRUV RUBI Primary Care Unavailable ELTAHAWY, EHAB Attending Unavailable ELTAHAWY, EHAB Attending Unavailable LAI, GA H Attending Unavailable LAI, GA H Attending Unavailable PETITTI, LAVONNE A Attending Unavailable LAI, GA H Attending Unavailable PETITTI, LAVONNE A Attending Unavailable LAI, GA H Attending Unavailable PETITTI, LAVONNE A Attending Unavailable PETITTI, LAVONNE A Attending Unavailable PETITTI, LAVONNE A Attending Unavailable LAI, GA H Attending Unavailable LEYLA, ANDERSMAIan F Attending Unavailable LEYLA, AHMAD F Referring Unavailable Dhruv Rubi MD Primary Care Provider [phone] Allergies Allergy Classification Reported Allergen(s) Allergy Type Date of Onset Reaction(s) Facility (20 sources) amLODIPine; Translations: [AMLODIPINE] Drug Allergy 03-28-20 05 Rash, Unknown [facility] (20 sources) Amoxicillin / Clavulanate Drug Allergy 11-23-19 Rash [facility] Other (20 sources) Contrast media Propensity to adverse reactions Unknown [facility] Other (2 sources) Doxazosin; Translations: [doxazosin] Drug Allergy Unknown [facility] Other (20 sources) Sulfamethoxazole / Trimethoprim Drug Allergy 11-23-19 Rash [facility] Other (20 sources) Doxazosin; Translations: [DOXAZOSIN] Drug Allergy 11-23-19 Unknown [facility] Other (9 sources) Amoxicillin / Clavulanate; Translations: [Augmentin] Drug Allergy 11-16-[address] [facility] Repository (1 source) amLODIPine Drug Allergy 04-25-20 14 [facility] (1 source) Sulfamethoxazole / Trimethoprim Drug Allergy 03-09-20 13 [facility] (6 sources) Iodinated Contrast Media; Translations: [IODINATED CONTRAST MEDIA] Propensity to adverse reactions to drug 11-23-19 Other [facility] (2 sources) Sulfamethoxazole / Trimethoprim; Translations: [SULFAMETHOXAZOLE-T RIMETHOPRIM] Drug Allergy 08-04-20 15 [facility] (5 sources) AMOXICILLIN-POT CLAVULANATE; Translations: [AMOXICILLIN-POT CLAVULANATE] Propensity to adverse reactions to drug (disorder) 11-23-19 21 Unknown [facility] (4 sources) Sulfamethoxazole; Translations: [SULFAMETHOXAZOLE] Drug Allergy 03-12-20 23 Unknown [facility] (3 sources) Amoxicillin Drug Allergy 03-12-20 23 Unknown [facility] (3 sources) Doxazosin Drug Allergy 03-12-20 Unknown [facility] (3 sources) Trimethoprim Drug Allergy 03-12-20 23 Unknown [facility] Medications Current Medications Medication Drug Class(es) Dates [...] as needed Orally every 6 hrs Active alendronic acid 70 mg oral tablet (3 sources) Bisphosphonate take 1 tablet by mouth in the morning alendronate (Fosamax) 70 MG tablet Take 1 tablet by mouth every 7 (seven) days Take in the morning with a full glass of water, on an empty stomach, and do not take anything else by mouth or lie down for the next 30 min. Active allopurinol 100 mg oral tablet (20 sources) Xanthine Oxidase Inhibitor take 1 tablet by mouth three times daily allopurinol (Zyloprim) 100 MG tablet take 1 tablet by oral route 3 times every day Oral Active take 1 tablet by mouth in the mo rning allopurinoL (ZYLOPRIM) 300 mg tablet Take 1 tablet (300 mg total) by mouth in the morning. 0 Active aspirin 81 mg delayed release oral tablet (20 sources) Platelet Aggregation Inhibitor, Nonsteroidal Anti-inflammatory Drug Start: 01-11-2021 take 1 tablet by mouth once daily aspirin 81 mg Indications: Hypertensive urgency , Shortness of breath , H/O four vessel coronary artery bypass graft , Atherosclerosis of [place] coronary artery of [place] heart without angina pectoris , Paroxysmal atrial [...] (LIPITOR) 80 mg tablet Indications: Atherosclerosis of [place] coronary artery of [place] heart without angina pectoris , H/O four vessel coronary artery bypass graft , Hypertensive urgency , Shortness of breath , Paroxysmal atrial fibrillation (CMS-HCC) , Localized edema take 1 tablet by mouth nightly 90 tablet 3 12/25/2023 Active betamethasone 0.5 mg/ml topical cream (3 sources) Corticosteroid Start: 06-04-2024 betamethasone dipropionate 0.05 % cream Indications: Granuloma annulare Apply to affected areas, up to twice a day when flared, do not use one the face, groin, or underarms, 30 day supply 45 g 11 06/04/2024 Active calcium carbonate 1500 mg oral tablet [...] 3 08/06/2022 Active take 1 tablet by mouth in the mo rning carvedilol (Coreg) 25 MG tablet Take 1 tablet by mouth in the morning and 1 tablet in the evening. Take with meals. Active cholecalciferol 0.125 mg oral tablet (1 [...] 1 tablet Orally every 12 hrs Active diclofenac sodium 75 mg delayed release oral tablet (3 sources) Nonsteroidal Anti-inflammatory Drug take 1 tablet by mouth in the morning diclofenac (Voltaren) 75 MG EC tablet Take 1 tablet by mouth in the morning and 1 tablet before bedtime. Do not crush, chew, or split.. Active docusate sodium 50 mg / sennosides, long term 8.6 mg oral tablet (5 sources) take 1 tablet by mouth every twelve hours Sennosides-Docusate Sodium 8.6-50 MG 1 tablet in the evening as needed Orally every 12 hours Active epoetin [id number] 56993 UNT/ML Injectable Solution [Retacrit] (14 sources) Retacrit 69715 U NIT/ML as directed Injection Active ferrous [...] BY MOUTH ONCE DAILY for 90 Active hydroCHLOROthiazide (3 sources) Thiazide Diuretic HYDROCHLOROTHI AZIDE PO hydroCHLOROthiazide Active hydrocortisone acetate 25 mg rectal suppository (3 sources) Corticosteroid hydrocortisone ( Anusol-HC) 25 MG suppository insert 1 suppository by rectal route 2 times every day for 2 weeks Rectal Active 3 ml insulin aspart, human 100 unt/ml pen injector (20 sources) Insulin Analog Start: insulin aspart (NovoLOG FLEXPEN) 100 UNIT/ML pen Inject 10-15 Units under the skin in the morning and 10-15 Units at noon and 10-15 Units in the evening. Inject with meals. 10-12-15 according to meal size (plus sliding scale ISS #2) expect up to 80 Units total daily use. 06/15/2024 Active inject 10 [IU] by rice bcutaneous injection before breakfast, then inject 15 [IU] [...] Active insulin detemir 100 unt/ml injectable solution (20 sources) Insulin Analog Start: 01-03-2021 insulin detemi r U-100 (LEVEMIR) 100 unit/mL injection Inject 30 units in the morning and 25 units at night - closely monitor blood sugars and follow up with your PCP in 1-2 weeks 1 Box 12 01/03/2021 Active End: 07-13-2024 insulin detemir (Levemir Fle xPen) 100 UNIT/ML pen inject by subcutaneous route as per insulin sliding scale protocol Subcutaneous 07/13/2024 Discontinued (Formulary change) Levemir FlexTouc h 100 UNIT/ML As Directed Subcutaneous 50 units twice a day Active labetalol hydrochloride 200 mg oral tablet (3 sources) beta-Adrenergic Gato take 2 tablets by mouth in the morning labetalol (Normodyne) 200 MG tablet Take 2 tablets by mouth in the morning and 2 tablets before bedtime. Active Levemir FlexTouch 100 UNIT/ML (11 sources) Levemir FlexTouc h 100 UNIT/ML As Directed Subcutaneous 50 units twice a day Active levothyroxine sodium 0.15 mg oral tablet (20 sources) l-Thyroxine take 2 tablets by mouth before mealtime levothyroxine (Synthroid, Levoxyl) 150 MCG tablet Take 2 tablets by mouth in the morning. Take before meals. Active take 1 tablet by mouth before me altime levothyroxine (Synthroid, Levoxyl) 150 MCG tablet Take 1 tablet by mouth in the morning. Take before meals. Active take 1 tablet by mouth in the mo rning levothyroxine (SYNTHROID, LEVOTHROID) 125 MCG tablet Take [...] in the morning. 0 12/05/2021 Active take 1 tablet by mouth once bebo y liothyronine (Cytomel) 5 MCG tablet Take 1 tablet by mouth Daily Active take 2 tablets by mo [facility] every twenty-four hours Liothyronine Sodium 5 MCG 2 tablets on a n empty stomach Orally Once a day Active take 2 tablets by mo [facility] every twenty-four hours lisinopril 10 [...] 1 tablet by enzo th once daily lisinopril 40 MG tablet take 1 tablet by oral route every day Oral Active take 1 tablet by enzo th every twenty-four hours Lisinopril 20 MG 1 tablet Orally Once a day for 90 days Active Magnesium (3 sources) MAGNESIUM PO Mag nesium Active magnesium oxide 400 mg oral tablet [...] Orally twice a day for 90 Active minocycline 100 mg oral capsule (3 sources) Tetracycline-class Drug take 1 capsule b y mouth every twelve hours minocycline 100 MG capsule 1 capsule every 12 (twelve) hours. Active Multi For Her 50+ - (20 sources) Multi For Her 50 + - Orally Active MULTIVITAMIN ORAL (1 source) MULTIVITAMIN ORA L Take by mouth daily. 0 Active [id number] erals-folic acid (Centrum) chewable tablet (3 sources) multivitamin-iro n-min erals-folic acid (Centrum) chewable tablet Chew 1 tablet in the morning. Active pantoprazole 40 mg delayed release oral tablet (20 sources) Proton Pump Inhibitor Start: take 1 tablet by mouth in the morning pantoprazole (PROTONIX) 40 mg EC tablet Take 1 tablet (40 mg total) by mouth in the morning. 0 12/19/2020 Active PANTOPRAZOLE SOD IUM PO Pantoprazole Sodium Active 12 hr ranolazine 500 mg extended release oral tablet (3 sources) Anti-anginal take 1 tablet by mouth every twelve hours in the morning ranolazine (Ranexa) 500 MG 12 hr tablet Take 1 tablet by mouth in the morning and 1 tablet before bedtime. Do not crush, chew, or split.. Active retacrit 58502 unit/ml solution (5 sources) Retacrit 22752 U NIT/ML as directed Injection Active Sennosides-Docusate Sodium 8 [...] Translations: [ACUTE BRONCHITIS UNSPECIFIED] Onset: 3 Episodic Administrative/socia l admission (2 sources) Patient encounter status; Translations: [Dietary counseling and surveillance] 07-13-2024 Episodic Cardiac dysrhythmias (4 sources) Paroxysmal atrial [...] Coronary atherosclerosis; Translations: [Atherosclerotic heart disease of [place] coronary artery without angina pectoris] Onset: 1 [...] complications] 11-23-2020 Chronic Disorders of lipid metabolism (3 sources) Hyperlipidemia; Translations: [Other hyperlipidemia] Onset: 2 01-15-2022 Chronic Essential hypertension (20 sources) Hypertensive disorder; Translations: [Essential (primary) hypertension] Onset: 1 05-11-2021 Chronic Fluid and electrolyte disorders (8 sources) Hyperkalemia Episodic Genitourinary symptoms and ill-defined conditions (3 sources) Dysuria; Translations: [Microalbuminuria] Onset: 2 07-13-2024 Episodic Gout and other crystal arthropathies (20 [...] pain; Translations: [Chest pain, unspecified] 11-23-2020 Episodic Nutritional deficiencies (2 sources) Vitamin D deficiency; Translations: [Vitamin D deficiency, unspecified] 07-13-2024 Chronic Osteoarthritis (1 source) Arthritis; Translations: [Unspecified osteoarthritis, unspecified site] 11-23-2020 Chronic Other aftercare (2 sources) Long-term 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; Translations: [MCFP (current) use of insulin] 07-13-2024 Episodic Other circulatory disease (2 sources) Arterial, arteriole [...] edema; Translations: [Localized edema] Onset: 4 Episodic Thyroid disorders (2 sources) Pema thyroiditis; Translations: [Autoimmune thyroiditis] 07-13-2024 Chronic Unclassified (3 sources) CONTACT W/AND (SUSP) EXPOS [...] of aortocoronary bypass graft] Onset: 01-11-2021 Episodic Malaise and fatigue (2 sources) Other [...] Test Name Value Interpretation Reference Range Facility Glucose (Bld) [Mass/Vol]Orde red By: Maria Antonia Mo on 07-13-2024 Glucose Blood, POC 180 mg/dL [facility]-11-2024 Follow-up visit [id number] Garima Robin e 1945 F Date Provider Department Center 05/11/[address] [place] [address] [facility] No family history on file Level of Service:[id number] ID OFFICE/OUTPATIENT ESTABLISHED MOD MDM 30 MIN Normal [facility] Office Visiton 02-10-2024 Follow-up visit [id number] Garima Robin e 1945 Date Provider Department Center 02/10/[address] [place] [address] Hos No family history on file Level of Service:[id number] ID OFFICE/OUTPATIENT ESTABLISHED MOD MDM 30 MIN Normal [facility] HEMOGRAM AND PLATELon 2022 Hematocrit (Bld) [Volume fraction] 28.8 % Critically low 36.0-48.0 [facility] Comment on above: Performed By: #### H H #### [facility] [address] [place] [address] Dr. Ember Teague Hemoglobin (Bld) [Mass/Vol] 9.6 g/dL Critically low 12.0-16.0 [facility] Comment on above: Performed By: #### H H #### [facility] [address] [address] [address] Ember Teague MCH (RBC) [Entitic mass] 30.7 pg Normal 26.7-34.0 [facility] Comment on above: Performed By: #### H H #### [facility] [address] [place] [address] Dr. Ember Teague MCHC (RBC) [Mass/Vol] 33.3 g/dL Normal 29.9-35.2 [facility] Comment on above: Performed By: #### H H #### [facility] [address] [address] [address] Ember Teague MCV (RBC) [Entitic vol] 92.0 fL Normal 81.0-99.0 [facility] Comment on above: Performed By: #### H H #### [facility] [address] [place] [address] Dr. Ember Teague PLT 214 103/ul Normal 150-450 [facility] Comment on above: Performed By: #### H H #### [facility] [address] [address] [address] Ember Teague RBC 3.13 106/ul Critically low 4.20-5.40 [facility] Comment on above: Performed By: #### H H #### [facility] [address] [place] [address] Dr. Ember Teague WBC 7.4 103/ul Normal 4.0-11.0 [facility] Comment on above: Performed By: #### H H #### [facility] [address] [place] [address] Dr. Ember Teague MAGNESIUMon 01-22-2023 Magnesium [Mass/Vol] 1.8 mg/dL Normal 1.8-2.4 [facility] Comment on above: Performed By: #### M G, RENAL #### [facility] [address] [place] [address] Dr. Ember Teague RENAL FUNCTION PANELon 01-22 Albumin [Mass/Vol] 3.6 g/dL Normal 3.4-5.0 [facility] Comment on above: Performed By: #### M G, RENAL #### [facility] [address] [address] [address] Ember Teague Calcium [Mass/Vol] 9.7 mg/dL Normal 8.5-10.1 [facility] Comment on above: Performed By: #### M G, RENAL #### [facility] [address] [place] [address] Dr. Ember Teague Chloride [Moles/Vol] 105 mmol/L Normal 98-107 [facility] Comment on above: Performed By: #### M G, RENAL #### [facility] [address] [address] [address] Ember Teague CO2 [Moles/Vol] 22.6 mmol/L Normal 21.0-32.0 [facility] [place] [facility] Comment on above: Performed By: #### M G, RENAL #### [facility] [address] [address] [address] Ember Teague Creatinine [Mass/Vol] 2.18 mg/dL Critically high 0.55-1.02 [facility] Comment on above: Performed By: #### M G, RENAL #### [facility] [address] [address] [address] Ember Teague EGFR-AF ARGENTINE 26 mL/min/1.73m2 Critically low >=60 [facility] Comment on above: Performed By: #### M G, RENAL #### [facility] [address] [place] [address] Dr. Ember Teague EGFR-NON AF ARGENTINE 22 mL/min/1.73m2 Critically low >=60 [facility] Comment on above: Performed By: #### M G, RENAL #### [facility] [address] [place] [address] Dr. Ember Teague Glucose [Mass/Vol] 134 mg/dL Critically high 74-106 [facility] Comment on above: Performed By: #### M G, RENAL #### [facility] [address] [place] [address] Dr. Ember Teague Phosphate [Mass/Vol] 4.6 mg/dL Normal 2.6-4.7 [facility] Comment on above: Performed By: #### M G, RENAL #### [facility] [address] [place] [address] Dr. Ember Teague Potassium [Moles/Vol] 5.1 mmol/L Normal 3.5-5.1 [facility] Comment on above: Performed By: #### M G, RENAL #### [facility] [address] [place] [address] Dr. Ember Teague Sodium [Moles/Vol] 138 mmol/L Normal 136-145 [facility] Comment on above: Performed By: #### M G, RENAL #### [facility] [address] [place], [place] [address] Dr. Ember Teague Urea nitrogen [Mass/Vol] 61.0 mg/dL Critically high 7.0-18.0 [facility] Comment on above: Performed By: #### M G, RENAL #### [facility] [address] [place], [place] [address] Dr. Ember Teague MG MAMM SCREEN 3D MAY CADon 12-17-2022 MG MAMM SCREEN 3D MAY CAD Patient: KYLAH ROBIN Exam Date: 12/17/2022 : 1945 Gender:F Ordering : DR DHRUV RUBI . Admission #: [id number] Family : Order #: [id number] CLICK HERE TO VIEW EXAM RADIOLOGY REPORT [...] at age 61. LOCATION: [facility] BREAST COMPOSITION: Scattered areas fibroglandular density. FINDINGS: [...] Aparicio MD on 12/17/2022 at 11:[address] [facility] FERRITINon 12-10-2022 Ferritin [Mass/Vol] 681.0 ng/mL Critically high 8.0-252.0 [facility] Comment on above: Performed By: #### P THINT #### [facility] [address] [place] [address] Dr. Ember Teague HEMOGRAM AND PLATELon 2022 Hematocrit (Bld) [Volume fraction] 27.1 % Critically low 36.0-48.0 [facility] Comment on above: Performed By: #### C VDTBH #### [facility] [address] [place] [address] Dr. Ember Teague Hemoglobin (Bld) [Mass/Vol] 9.7 g/dL Critically low 12.0-16.0 [facility] Comment on above: Performed By: #### C VDTBH #### [facility] [address] [place] [address] Dr. Ember Teague MCH (RBC) [Entitic mass] 31.4 pg Normal 26.7-34.0 [facility] Comment on above: Performed By: #### C VDTBH #### [facility] [address] [place] [address] Dr. Ember Teague MCHC (RBC) [Mass/Vol] 35.8 g/dL Critically high 29.9-35.2 [facility] Comment on above: Performed By: #### C VDTBH #### [facility] [address] [place] [address] Dr. Ember Teague MCV (RBC) [Entitic vol] 87.7 fL Normal 81.0-99.0 [facility] Comment on above: Performed By: #### C VDTBH #### [facility] [address] [place] [address] Dr. Ember Teague PLT 218 103/ul Normal 150-450 [facility] Comment on above: Performed By: #### C VDTBH #### [facility] [address] [place] [address] Dr. Ember Teague RBC 3.09 106/ul Critically low 4.20-5.40 [facility] Comment on above: Performed By: #### C VDTBH #### [facility] [address] [place] [address] Dr. Ember Teague WBC 6.6 103/ul Normal 4.0-11.0 [facility] Comment on above: Performed By: #### C VDTBH #### [facility] [address] [place] [address] Dr. Ember Teague IRON AND TIBCon 12-10-2022 % SATURATION 30.2 % Normal [facility] Comment on above: Performed By: #### P THINT #### [facility] [address] [place] [address] Dr. Ember Teague Iron [Mass/Vol] 84.0 ug/dL Normal 50.0-170.0 [facility] Comment on above: Performed By: #### P THINT #### [facility] [address] [place] [address] Dr. Ember Teague TIBC DIRECT 278.0 ug/dL Normal 250.0-450.0 [facility] Comment on above: Performed By: #### P THINT #### [facility] [address] [place] [address] Dr. Ember Teague XR FOOT MAY MIN [...] Date: 2022-11-20 14:03 Normal [facility] HEMOGRAM AND PLATELon 2022 Hematocrit (Bld) [Volume fraction] 27.7 % Critically low 36.0-48.0 [facility] Comment on above: Performed By: #### R ENAL #### [facility] [address] [place] [address] Dr. Ember Teague Hemoglobin (Bld) [Mass/Vol] 10.0 g/dL Critically low 12.0-16.0 [facility] Comment on above: Performed By: #### R ENAL #### [facility] [address] [place] [address] Dr. Ember Teague MCH (RBC) [Entitic mass] 31.6 pg Normal 26.7-34.0 [facility] Comment on above: Performed By: #### R ENAL #### [facility] [address] [place] [address] Dr. Ember Teague MCHC (RBC) [Mass/Vol] 36.1 g/dL Critically high 29.9-35.2 [facility] Comment on above: Performed By: #### R ENAL #### [facility] [address] [place] [address] Dr. Ember Teague MCV (RBC) [Entitic vol] 87.7 fL Normal 81.0-99.0 [facility] Comment on above: Performed By: #### R ENAL #### [facility] [address] [place] [address] Dr. Ember Teague PLT 182 103/ul Normal 150-450 [facility] Comment on above: Performed By: #### R ENAL #### [facility] [address] [place] [address] Dr. Ember Teague RBC 3.16 106/ul Critically low 4.20-5.40 [facility] Comment on above: Performed By: #### R ENAL #### [facility] [address] [place] [address] Dr. Ember Teague WBC 6.8 103/ul Normal 4.0-11.0 [facility] Comment on above: Performed By: #### R ENAL #### [facility] [address] [place] [address] Dr. Ember Teague PROF CHEM 8 (BAS METB)on Anion gap [Moles/Vol] 17.6 mmol/L Normal [facility] Comment on above: Performed By: #### C VDTBH #### [facility] [address] [address] [address] Ember Teague Calcium [Mass/Vol] 9.0 mg/dL Normal 8.5-10.1 [facility] Comment on above: Performed By: #### C VDTBH #### [facility] [address] [address] [address] Ember Teague Chloride [Moles/Vol] 104 mmol/L Normal 98-107 [facility] Comment on above: Performed By: #### C VDTBH #### [facility] [address] [address] [address] Ember Teague CO2 [Moles/Vol] 22.2 mmol/L Normal 21.0-32.0 [facility] [place] [facility] Comment on above: Performed By: #### C VDTBH #### [facility] [address] [address] [address] Ember Teague Creatinine [Mass/Vol] 2.03 mg/dL Critically high 0.55-1.02 [facility] Comment on above: Performed By: #### C VDTBH #### [facility] [address] [address] [address] Ember Teague EGFR-AF ARGENTINE 29 mL/min/1.73m2 Critically low >=60 [facility] Comment on above: Performed By: #### C VDTBH #### [facility] [address] [address] [address] Ember Teague EGFR-NON AF ARGENTINE 24 mL/min/1.73m2 Critically low >=60 [facility] Comment on above: Performed By: #### C VDTBH #### [facility] [address] [address] [address] Ember Teague Glucose [Mass/Vol] 154 mg/dL Critically high 74-106 [facility] Comment on above: Performed By: #### C VDTBH #### [facility] [address] [address] [address] Ember Teague Potassium [Moles/Vol] 4.8 mmol/L Normal 3.5-5.1 [facility] Comment on above: Performed By: #### C VDTBH #### [facility] [address] [address] [address] Ember Teague Sodium [Moles/Vol] 139 mmol/L Normal 136-145 [facility] Comment on above: Performed By: #### C VDTBH #### [facility] [address] [address] [address] Ember Teague Urea nitrogen [Mass/Vol] 43.0 mg/dL Critically high 7.0-18.0 [facility] Comment on above: Performed By: #### C VDTBH #### [facility] [address] [address] [address] Ember Teague Urea nitrogen/Creatinine [Mass ratio] 21.2 mg/mg Normal [facility] Comment on above: Performed By: #### C VDTBH #### [facility] [address] [place] [address] Dr. Ember Teague CULTURE SPUTUMon 10-24-2022 CULTURE SPUTUM Culture Observations : Beta lactamase positive Isolate 1 Haemophilus influenzae Moderate growth of Normal [facility] Comment on above: Performed By: #### R ENAL #### [facility] [address] [place] [address] Dr. Ember Teague SPUTUM GRAM STAINon 10-24-[address] [facility] Comment on above: Performed By: #### R ENAL #### [facility] [address] [place] [address] Dr. Ember Teague DIPHTHEROIDS Normal [facility] Comment on above: Performed By: #### R ENAL #### [facility] [address] [place] [address] Dr. Ember Teague EPITHELIALS >[address] [facility] Comment on above: Performed By: #### R ENAL #### [facility] [address] [place] [address] Dr. Ember Teague FUNGAL ELEMENTS Normal [facility] Comment on above: Performed By: #### R ENAL #### [facility] [address] [place] [address] Dr. Ember Teague GRAM NEG BACILLI Normal [facility] Comment on above: Performed By: #### R ENAL #### [facility] [address] [address] [address] Ember Teague GRAM NEG DIPPLOCOCCI FEW Normal [facility] Comment on above: Performed By: #### R ENAL #### [facility] [address] [address] [address] Ember Teague GRAM POS BACILLI FEW Normal [facility] Comment on above: Performed By: #### R ENAL #### [facility] [address] [address] [address] Ember Teague GRAM POSITIVE COCCI MANY Normal [facility] Comment on above: Performed By: #### R ENAL #### [facility] [address] [place] [address] Dr. Ember Teague WBC (Bld) [#/Vol] 10*3/uL Normal [facility] Comment on above: Performed By: #### R ENAL #### [facility] [address] [place] [address] Dr. Ember Teague XR CHEST 2 Von [...] ANGELINA BRISENO Date: 2022-10-24 16:22 Normal [facility] FERRITINon 09-18-2022 Ferritin [Mass/Vol] 612.0 ng/mL Critically high 8.0-252.0 [facility] Comment on above: Performed By: #### F ERR, FETIBC #### [facility] [address] [place] [address] Dr. Ember Teague HEMOGRAM AND PLATELon 2021 Hematocrit (Bld) [Volume fraction] 28.1 % Critically low 36.0-48.0 [facility] Comment on above: Performed By: #### C BC #### [facility] [address] [place] [address] Dr. Ember Teague Hemoglobin (Bld) [Mass/Vol] 9.7 g/dL Critically low 12.0-16.0 [facility] Comment on above: Performed By: #### C BC #### [facility] [address] [place] [address] Dr. Ember Teague MCH (RBC) [Entitic mass] 31.3 pg Normal 26.7-34.0 [facility] Comment on above: Performed By: #### C BC #### [facility] [address] [place] [address] Dr. Ember Teague MCHC (RBC) [Mass/Vol] 34.5 g/dL Normal 29.9-35.2 [facility] Comment on above: Performed By: #### C BC #### [facility] [address] [place] [address] Dr. Ember Teague MCV (RBC) [Entitic vol] 90.6 fL Normal 81.0-99.0 [facility] Comment on above: Performed By: #### C BC #### [facility] [address] [place] [address] Dr. Ember Teague PLT 183 103/ul Normal 150-450 [facility] Comment on above: Performed By: #### C BC #### [facility] [address] [place] [address] Dr. Ember Teague RBC 3.10 106/ul Critically low 4.20-5.40 [facility] Comment on above: Performed By: #### C BC #### [facility] [address] [place] [address] Dr. Ember Teague WBC 7.2 103/ul Normal 4.0-11.0 [facility] Comment on above: Performed By: #### C BC #### [facility] [address] [place] [address] Dr. Ember Teague IRON AND TIBCon 09-18-2022 % SATURATION 36.0 % Normal [facility] Comment on above: Performed By: #### F ERR, FETIBC #### [facility] [address] [place] [address] Dr. Ember Teague Iron [Mass/Vol] 77.0 ug/dL Normal 50.0-170.0 [facility] Comment on above: Performed By: #### F ERR, FETIBC #### [facility] [address] [place] [address] Dr. Ember Teague TIBC DIRECT 214.0 ug/dL Critically low 250.0-450.[address] [facility] Comment on above: Performed By: #### F ERR, FETIBC #### [facility] [address] [place] [address] Dr. Ember Teague RENAL FUNCTION PANELon 09-18 Albumin [Mass/Vol] 3.7 g/dL Normal 3.4-5.0 [facility] Comment on above: Performed By: #### R ENAL #### [facility] [address] [place] [address] Dr. Ember Teague Calcium [Mass/Vol] 9.5 mg/dL Normal 8.5-10.1 [facility] Comment on above: Performed By: #### R ENAL #### [facility] [address] [place] [address] Dr. Ember Teague Chloride [Moles/Vol] 103 mmol/L Normal 98-107 [facility] Comment on above: Performed By: #### R ENAL #### [facility] [address] [place] [address] Dr. Ember Teague CO2 [Moles/Vol] 21.1 mmol/L Normal 21.0-32.0 [facility] Comment on above: Performed By: #### R ENAL #### [facility] [address] [place] [address] Dr. Ember Teague Creatinine [Mass/Vol] 1.85 mg/dL Critically high 0.55-1.02 [facility] Comment on above: Performed By: #### R ENAL #### [facility] [address] [place], [place] [id number] Dr. Ember Teague EGFR-AF ARGENTINE 32 mL/min/1.73m2 Critically low >=60 [facility] Comment on above: Performed By: #### R ENAL #### [facility] [address] [address] [address] Ember Teague EGFR-NON AF ARGENTINE 26 mL/min/1.73m2 Critically low >=60 [facility] Comment on above: Performed By: #### R ENAL #### [facility] [address] [address] [address] Ember Teague Glucose [Mass/Vol] 183 mg/dL Critically high 74-106 [facility] Comment on above: Performed By: #### R ENAL #### [facility] [address] [address] [address] Ember Teague Phosphate [Mass/Vol] 3.7 mg/dL Normal 2.6-4.7 [facility] Comment on above: Performed By: #### R ENAL #### [facility] [address] [address] [address] Ember Teague Potassium [Moles/Vol] 4.9 mmol/L Normal 3.5-5.1 [facility] Comment on above: Performed By: #### R ENAL #### [facility] [address] [place] [address] Dr. Ember Teague Sodium [Moles/Vol] 138 mmol/L Normal 136-145 [facility] Comment on above: Performed By: #### R ENAL #### [facility] [address] [place] [address] Dr. Ember Teague Urea nitrogen [Mass/Vol] 40.0 mg/dL Critically high 7.0-18.0 [facility] Comment on above: Performed By: #### R ENAL #### [facility] [address] [place] [address] Dr. Ember Teague CULTURE URINEon 09-15-2022 CULTURE [...] <=20 S F Normal [facility] Comment on above: Performed By: #### R ENAL #### [facility] [address] [place] [address] Dr. Ember Teague BNPon 09-11-2022 Natriuretic peptide B (Bld) [Mass/Vol] 408.0 pg/mL Normal <=1,800.0 [facility] Comment on above: Performed By: #### P THINT #### [facility] [address] [place] [address] Dr. Ember Teague CBC AUTO DIFFon 09-11-2022 BASO # 0.0 103/ul Normal 0.0-0.1 [facility] Comment on above: Performed By: #### C BC #### [facility] [address] [place] [address] Dr. Ember Teague Basophils/100 WBC (Bld) 0.3 % Normal 0.2-2.0 [facility] Comment on above: Performed By: #### C BC #### [facility] [address] [place] [address] Dr. Ember Teague EO # 0.1 103/ul Normal 0.0-0.7 [facility] Comment on above: Performed By: #### C BC #### [facility] [address] [place] [address] Dr. Ember Teague Eosinophils/100 WBC (Bld) 1.9 % Normal 0.9-7.0 [facility] Comment on above: Performed By: #### C BC #### [facility] [address] [place] [address] Dr. Ember Teague Erythrocyte distribution width (RBC) [Ratio] 15.2 % Critically high 11.0-15.0 [facility] Comment on above: Performed By: #### C BC #### [facility] [address] [place] [address] Dr. Ember Teague Hematocrit (Bld) [Volume fraction] 26.6 % Critically low 36.0-48.0 [facility] Comment on above: Performed By: #### C BC #### [facility] [address] [place] [address] Dr. Ember Teague Hemoglobin (Bld) [Mass/Vol] 9.0 g/dL Critically low 12.0-16.0 [facility] Comment on above: Performed By: #### C BC #### [facility] [address] [place] [address] Dr. Ember Teague IG # 0.02 10e3/ul Normal 0.00-0.03 [facility] Comment on above: Performed By: #### C BC #### [facility] [address] [place] [address] Dr. Ember Teague IG % 0.3 % Normal 0.0-0.5 [facility] Comment on above: Performed By: #### C BC #### [facility] [address] [place] [address] Dr. Ember Teague LYMPH # 1.9 103/ul Normal 1.2-3.8 [facility] Comment on above: Performed By: #### C BC #### [facility] [address] [place] [address] Dr. Ember Teague Lymphocytes/100 WBC (Bld) 32.4 % Normal 20.5-60.0 [facility] Comment on above: Performed By: #### C BC #### [facility] [address] [place] [address] Dr. Ember Teague MANUAL DIFF REQ NO Normal [facility] Comment on above: Performed By: #### C BC #### [facility] [address] [place] [address] Dr. Ember Teague MCH (RBC) [Entitic mass] 31.1 pg Normal 26.7-34.0 [facility] Comment on above: Performed By: #### C BC #### [facility] [address] [address] [address] Ember Teague MCHC (RBC) [Mass/Vol] 33.8 g/dL Normal 29.9-35.2 [facility] Comment on above: Performed By: #### C BC #### [facility] [address] [place] [address] Dr. Ember Teague MCV (RBC) [Entitic vol] 92.0 fL Normal 81.0-99.0 [facility] Comment on above: Performed By: #### C BC #### [facility] [address] [place] [address] Dr. Ember Teague MONO # 0.6 103/ul Normal 0.3-0.8 [facility] Comment on above: Performed By: #### C BC #### [facility] [address] [place] [address] Dr. Ember Teague Monocytes/100 WBC (Bld) 10.0 % Normal 1.7-12.0 [facility] Comment on above: Performed By: #### C BC #### [facility] [address] [place] [address] Dr. Ember Teague NEUT # 3.2 103/ul Normal 1.4-6.5 [facility] Comment on above: Performed By: #### C BC #### [facility] [address] [place] [address] Dr. Ember Teague Neutrophils/100 WBC (Bld) 55.1 % Normal 43.0-75.0 [facility] Comment on above: Performed By: #### C BC #### [facility] [address] [place] [address] Dr. Ember Teague Platelet mean volume (Bld) [Entitic vol] 9.4 fL Critically low 9.5-13.5 [facility] Comment on above: Performed By: #### C BC #### [facility] [address] [place] [address] Dr. Ember Teague PLT 196 103/ul Normal 150-450 [facility] Comment on above: Performed By: #### C BC #### [facility] [address] [place] [address] Dr. Ember Teague RBC 2.89 106/ul Critically low 4.20-5.40 [facility] Comment on above: Performed By: #### C BC #### [facility] [address] [place] [address] Dr. Ember Teague WBC 5.8 103/ul Normal 4.0-11.0 [facility] Comment on above: Performed By: #### C BC #### [facility] [address] [place] [address] Dr. Ember Teague PROF 14(COMP METB)on 022 Albumin [Mass/Vol] 3.7 g/dL Normal 3.4-5.0 [facility] Comment on above: Performed By: #### P THINT #### [facility] [address] [place] [address] Dr. Ember Teague Albumin/Globulin [Mass ratio] 1.0 {ratio} Normal [facility] Comment on above: Performed By: #### P THINT #### [facility] [address] [place] [address] Dr. Ember Teague ALP [Catalytic activity/Vol] 79 U/L Normal 46-116 [facility] Comment on above: Performed By: #### P THINT #### [facility] [address] [place] [address] Dr. Ember Teague ALT [Catalytic activity/Vol] 24 U/L Normal 14-59 [facility] Comment on above: Performed By: #### P THINT #### [facility] [address] [place] [address] Dr. Ember Teague Anion gap [Moles/Vol] 12.8 mmol/L Normal [facility] Comment on above: Performed By: #### P THINT #### [facility] [address] [place] [address] Dr. Ember Teague AST [Catalytic activity/Vol] 17 U/L Normal 15-37 [facility] Comment on above: Performed By: #### P THINT #### [facility] [address] [address] [address] Ember Teague Bilirubin [Mass/Vol] 0.5 mg/dL Normal 0.2-1.0 [facility] Comment on above: Performed By: #### P THINT #### [facility] [address] [address] [address] Ember Teague Calcium [Mass/Vol] 9.4 mg/dL Normal 8.5-10.1 [facility] Comment on above: Performed By: #### P THINT #### [facility] [address] [address] [address] Ember Teague Chloride [Moles/Vol] 101 mmol/L Normal 98-107 [facility] Comment on above: Performed By: #### P THINT #### [facility] [address] [address] [address] Ember Teague CO2 [Moles/Vol] 24.3 mmol/L Normal 21.0-32.0 [facility] Comment on above: Performed By: #### P THINT #### [facility] [address] [address] [address] Ember Teague Creatinine [Mass/Vol] 2.84 mg/dL Critically high 0.55-1.02 [facility] Comment on above: Performed By: #### P THINT #### [facility] [address] [address] [address] Ember Teague EGFR-AF ARGENTINE 20 mL/min/1.73m2 Critically low >=60 [facility] Comment on above: Performed By: #### P THINT #### [facility] [address] [address] [address] Ember Teague EGFR-NON AF ARGENTINE 16 mL/min/1.73m2 Critically low >=60 [facility] Comment on above: Performed By: #### P THINT #### [facility] [address] [address] [address] Ember Teague Globulin (S) [Mass/Vol] 3.7 g/dL Normal [facility] Comment on above: Performed By: #### P THINT #### [facility] [address] [address] [address] Ember Teague Glucose [Mass/Vol] 174 mg/dL Critically high 74-106 T [facility] Comment on above: Performed By: #### P THINT #### [facility] [address] [address] [address] Ember Teague Potassium [Moles/Vol] 5.1 mmol/L Normal 3.5-5.1 [facility] Comment on above: Performed By: #### P THINT #### [facility] [address] [address] [address] Ember Teague Protein [Mass/Vol] 7.4 g/dL Normal 6.4-8.2 [facility] Comment on above: Performed By: #### P THINT #### [facility] [address] [address] [address] Ember Teague Sodium [Moles/Vol] 133 mmol/L Critically low 136-145 [facility] Comment on above: Performed By: #### P THINT #### [facility] [address] [address] [address] Ember Teague Urea nitrogen [Mass/Vol] 68.0 mg/dL Critically high 7.0-18.0 [facility] Comment on above: Performed By: #### P THINT #### [facility] [address] [address] [address] Ember Teague Urea nitrogen/Creatinine [Mass ratio] 23.9 mg/mg Normal [facility] Comment on above: Performed By: #### P THINT #### [facility] [address] [address] [address] Ember Teague TROPONIN, HIGH SENSITIVITYon 09-11-2022 HSTROP 9.1 pg/mL Normal 4.0-51.3 [facility] Comment on above: Result Comment: CUT- OFF POINTS HAVE BEEN ESTABLISHED BASED ON THE FOURTH UNIVERSAL DEFINITIONS OF MYOCARDIAL INFARCTION. THE UPPER REFERENCE LIMIT (URL) OF TROPONIN, DEFINED THE 99TH PERCENTILE OF cTnI DISTRIBUTION IN A REFERENCE POPULATION, HAS BEEN CONFIRMED THE DECISION THRESHOLD FOR VT DIAGNOSIS. Performed By: #### P THINT #### [facility] [address] [place] [address] Dr. Ember Teague UA RANDOM W/MICROSCOPICon BACTERIA NONE SEEN Normal NONE SEEN [facility] Comment on above: Performed By: #### C VDTBH #### [facility] [address] [place] [address] Dr. Ember Teague Bilirubin Ql (U) Negative Normal NEGATIVE [facility] Comment on above: Performed By: #### C VDTBH #### [facility] [address] [place] [address] Dr. Ember Teague CAST NONE SEEN Normal NONE SEEN [facility] Comment on above: Performed By: #### C VDTBH #### [facility] [address] [place] [address] Dr. Ember Teague Clarity (U) CLEAR Normal CLEAR [facility] Comment on above: Performed By: #### C VDTBH #### [facility] [address] [place] [address] Dr. Ember Teague Color (U) LT. YELLOW Normal YELLOW [facility] Comment on above: Performed By: #### C VDTBH #### [facility] [address] [place] [address] Dr. Ember Teague Crystals LM Nom (Urine sed) NONE SEEN Normal NONE SEEN [facility] Comment on above: Performed By: #### C VDTBH #### [facility] [address] [place] [address] Dr. Ember Teague Epithelial cells LM Ql (Urine sed) FEW Abnormal NONE SEEN /RARE [facility] Comment on above: Performed By: #### C VDTBH #### [facility] [address] [place] [address] Dr. Ember Teague Glucose Ql (U) Negative Normal NEGATIVE [facility] Comment on above: Performed By: #### C VDTBH #### [facility] [address] [place] [address] Dr. Ember Teague Hemoglobin Ql (U) Negative Normal NEGATIVE [facility] Comment on above: Performed By: #### C VDTBH #### [facility] [address] [place] [address] Dr. Ember Teague Ketones Ql (U) Negative Normal NEGATIVE [facility] Comment on above: Performed By: #### C VDTBH #### [facility] [address] [place] [address] Dr. Ember Teague LEUKOCYTES Negative Normal NEGATIVE [facility] Comment on above: Performed By: #### C VDTBH #### [facility] [address] [place] [address] Dr. Ember Teague MUCOUS NONE SEEN Normal NONE SEEN [facility] Comment on above: Performed By: #### C VDTBH #### [facility] [address] [place] [address] Dr. Ember Teague Nitrite Ql (U) Negative Normal NEGATIVE [facility] Comment on above: Performed By: #### C VDTBH #### [facility] [address] [place] [address] Dr. Ember Teague pH (U) 5.5 [pH] Normal 5-9 [facility] Comment on above: Performed By: #### C VDTBH #### [facility] [address] [place] [address] Dr. Ember Teague RBC NONE SEEN Abnormal 0-2 [facility] Comment on above: Performed By: #### C VDTBH #### [facility] [address] [place] [address] Dr. Ember Teague SPEC GRAVITY 1.010 Normal 1.005-<=1.025 [facility] Comment on above: Performed By: #### C VDTBH #### [facility] [address] [place] [address] Dr. Ember Teague UA PROTEIN Negative Normal NEGATIVE/ TRACE [facility] Comment on above: Performed By: #### C VDTBH #### [facility] [address] [place] [address] Dr. Ember Teague Urobilinogen Qn (U) 0.2 {Esau'U}/dL Normal 0.2 - 1. 0 [facility] Comment on above: Performed By: #### C VDTBH #### [facility] [address] [place] [address] Dr. Ember Teague WBC NONE SEEN Normal NONE SEEN [facility] Comment on above: Performed By: #### C VDTBH #### [facility] [address] [place] [address] Dr. Ember Teague CBC AUTO DIFFon 08-13-2022 BASO # 0.0 103/ul Normal 0.0-0.1 [facility] Comment on above: Performed By: #### C BC #### [facility] [address] [place] [address] Dr. Ember Teague Basophils/100 WBC (Bld) 0.3 % Normal 0.2-2.0 [facility] Comment on above: Performed By: #### C BC #### [facility] [address] [place] [address] Dr. Ember Teague EO # 0.2 103/ul Normal 0.0-0.7 [facility] Comment on above: Performed By: #### C BC #### [facility] [address] [place] [address] Dr. Ember Teague Eosinophils/100 WBC (Bld) 3.7 % Normal 0.9-7.0 [facility] Comment on above: Performed By: #### C BC #### [facility] [address] [place] [address] Dr. Ember Teague Erythrocyte distribution width (RBC) [Ratio] 15.0 % Normal 11.0-15.0 [facility] Comment on above: Performed By: #### C BC #### [facility] [address] [place] [address] Dr. Ember Teague Hematocrit (Bld) [Volume fraction] 27.9 % Critically low 36.0-48.0 [facility] Comment on above: Performed By: #### C BC #### [facility] [address] [place] [address] Dr. Ember Teague Hemoglobin (Bld) [Mass/Vol] 9.7 g/dL Critically low 12.0-16.0 [facility] Comment on above: Performed By: #### C BC #### [facility] [address] [place] [address] Dr. Ember Teague IG # 0.01 10e3/ul Normal 0.00-0.03 [facility] Comment on above: Performed By: #### C BC #### [facility] [address] [place] [address] Dr. Ember Teague IG % 0.2 % Normal 0.0-0.5 [facility] Comment on above: Performed By: #### C BC #### [facility] [address] [place] [address] Dr. Ember Teague LYMPH # 1.9 103/ul Normal 1.2-3.8 [facility] Comment on above: Performed By: #### C BC #### [facility] [address] [place] [address] Dr. Ember Teague Lymphocytes/100 WBC (Bld) 32.2 % Normal 20.5-60.0 [facility] Comment on above: Performed By: #### C BC #### [facility] [address] [place] [address] Dr. Ember Teague MANUAL DIFF REQ NO Normal [facility] Comment on above: Performed By: #### C BC #### [facility] [address] [place] [address] Dr. Ember Teague MCH (RBC) [Entitic mass] 31.4 pg Normal 26.7-34.0 [facility] Comment on above: Performed By: #### C BC #### [facility] [address] [place] [address] Dr. Ember Teague MCHC (RBC) [Mass/Vol] 34.8 g/dL Normal 29.9-35.2 [facility] Comment on above: Performed By: #### C BC #### [facility] [address] [place] [address] Dr. Ember Teague MCV (RBC) [Entitic vol] 90.3 fL Normal 81.0-99.0 [facility] Comment on above: Performed By: #### C BC #### [facility] [address] [place], [place] [id number] Dr. Ember Teague MONO # 0.6 103/ul Normal 0.3-0.8 [facility] Comment on above: Performed By: #### C BC #### [facility] [address] [place] [address] Dr. Ember Teague Monocytes/100 WBC (Bld) 9.8 % Normal 1.7-12.0 [facility] Comment on above: Performed By: #### C BC #### [facility] [address] [place] [address] Dr. Ember Teague NEUT # 3.2 103/ul Normal 1.4-6.5 [facility] Comment on above: Performed By: #### C BC #### [facility] [address] [place] [address] Dr. Ember Teague Neutrophils/100 WBC (Bld) 53.8 % Normal 43.0-75.0 [facility] Comment on above: Performed By: #### C BC #### [facility] [address] [place] [address] Dr. Ember Teague Platelet mean volume (Bld) [Entitic vol] 10.0 fL Normal 9.5-13.5 [facility] Comment on above: Performed By: #### C BC #### [facility] [address] [place] [address] Dr. Ember Teague PLT 194 103/ul Normal 150-450 [facility] Comment on above: Performed By: #### C BC #### [facility] [address] [place] [address] Dr. Ember Teague RBC 3.09 106/ul Critically low 4.20-5.40 [facility] Comment on above: Performed By: #### C BC #### [facility] [address] [place] [address] Dr. Ember Teague WBC 6.0 103/ul Normal 4.0-11.0 [facility] Comment on above: Performed By: #### C BC #### [facility] [address] [place] [address] Dr. Ember Teague PTH INTACTon 06-26-2022 PTH, Intact 39 pg/mL Normal 15-65 [facility] Comment on above: Performed By: #### P THINT #### [facility] [address] [place] [address] Dr. Ember Teague CBC AUTO DIFFon 06-25-2022 BASO # 0.1 103/ul Normal 0.0-0.1 [facility] Comment on above: Performed By: #### C VDTBH #### [facility] [address] [place] [address] Dr. Ember Teague Basophils/100 WBC (Bld) 0.6 % Normal 0.2-2.0 [facility] Comment on above: Performed By: #### C VDTBH #### [facility] [address] [place] [address] Dr. Ember Teague EO # 0.2 103/ul Normal 0.0-0.7 [facility] Comment on above: Performed By: #### C VDTBH #### [facility] [address] [place] [address] Dr. Ember Teague Eosinophils/100 WBC (Bld) 3.0 % Normal 0.9-7.0 [facility] Comment on above: Performed By: #### C VDTBH #### [facility] [address] [place] [address] Dr. Ember Teague Erythrocyte distribution width (RBC) [Ratio] 14.2 % Normal 11.0-15.0 [facility] Comment on above: Performed By: #### C VDTBH #### [facility] [address] [place] [address] Dr. Ember Teague Hematocrit (Bld) [Volume fraction] 30.9 % Critically low 36.0-48.0 [facility] Comment on above: Performed By: #### C VDTBH #### [facility] [address] [place] [address] Dr. Ember Teague Hemoglobin (Bld) [Mass/Vol] 10.6 g/dL Critically low 12.0-16.0 [facility] Comment on above: Performed By: #### C VDTBH #### [facility] [address] [address] [address] Ember Teague IG # 0.04 10e3/ul Critically high 0.00-0.03 [facility] Comment on above: Performed By: #### C VDTBH #### [facility] [address] [place] [address] Dr. Ember Teague IG % 0.5 % Normal 0.0-0.5 [facility] Comment on above: Performed By: #### C VDTBH #### [facility] [address] [place] [address] Dr. Ember Teague LYMPH # 2.2 103/ul Normal 1.2-3.8 [facility] Comment on above: Performed By: #### C VDTBH #### [facility] [address] [place] [address] Dr. Ember Teague Lymphocytes/100 WBC (Bld) 27.0 % Normal 20.5-60.0 [facility] Comment on above: Performed By: #### C VDTBH #### [facility] [address] [place] [address] Dr. Ember Teague MANUAL DIFF REQ NO Normal [facility] Comment on above: Performed By: #### C VDTBH #### [facility] [address] [place] [address] Dr. Ember Teague MCH (RBC) [Entitic mass] 31.2 pg Normal 26.7-34.0 [facility] Comment on above: Performed By: #### C VDTBH #### [facility] [address] [place] [address] Dr. Ember Teague MCHC (RBC) [Mass/Vol] 34.3 g/dL Normal 29.9-35.2 [facility] Comment on above: Performed By: #### C VDTBH #### [facility] [address] [place] [address] Dr. Ember Teague MCV (RBC) [Entitic vol] 90.9 fL Normal 81.0-99.0 [facility] Comment on above: Performed By: #### C VDTB #### [facility] [address] [address] [address] Ember Teague MONO # 0.7 103/ul Normal 0.3-0.8 [facility] Comment on above: Performed By: #### C VDTBH #### [facility] [address] [address] [address] Ember Teague Monocytes/100 WBC (Bld) 9.2 % Normal 1.7-12.0 [facility] Comment on above: Performed By: #### C VDTBH #### [facility] [address] [place] [address] Dr. Ember Teague NEUT # 4.8 103/ul Normal 1.4-6.5 [facility] Comment on above: Performed By: #### C VDTBH #### [facility] [address] [place] [address] Dr. Ember Teague Neutrophils/100 WBC (Bld) 59.7 % Normal 43.0-75.0 [facility] Comment on above: Performed By: #### C VDTB #### [facility] [address] [place] [address] Dr. Ember Teague Platelet mean volume (Bld) [Entitic vol] 9.3 fL Critically low 9.5-13.5 [facility] Comment on above: Performed By: #### C VDTBH #### [facility] [address] [place] [address] Dr. Ember Teague PLT 227 103/ul Normal 150-450 [facility] Comment on above: Performed By: #### C VDTBH #### [facility] [address] [place] [address] Dr. Ember Teague RBC 3.40 106/ul Critically low 4.20-5.40 [facility] Comment on above: Performed By: #### C VDTBH #### [facility] [address] [place] [address] Dr. Ember Teague WBC 8.0 103/ul Normal 4.0-11.0 [facility] Comment on above: Performed By: #### C VDTBH #### [facility] [address] [address] [address] Ember Teague MRI LSPINE WO CONon [...] Date: 2022-06-25 08:45 Normal [facility] RENAL FUNCTION PANELon 06-25 Albumin [Mass/Vol] 3.9 g/dL Normal 3.4-5.0 [facility] Comment on above: Performed By: #### P THINT #### [facility] [address] [address] [address] Ember Teague Calcium [Mass/Vol] 9.5 mg/dL Normal 8.5-10.1 [facility] Comment on above: Performed By: #### P THINT #### [facility] [address] [address] [address] Ember Teague Chloride [Moles/Vol] 102 mmol/L Normal 98-107 [facility] Comment on above: Performed By: #### P THINT #### [facility] [address] [address] [address] Ember Teague CO2 [Moles/Vol] 23.8 mmol/L Normal 21.0-32.0 [facility] Comment on above: Performed By: #### P THINT #### [facility] [address] [address] [address] Ember Teague Creatinine [Mass/Vol] 1.75 mg/dL Critically high 0.55-1.02 [facility] Comment on above: Performed By: #### P THINT #### [facility] [address] [address] [address] Ember Teague EGFR-AF ARGENTINE 34 mL/min/1.73m2 Critically low >=60 [facility] Comment on above: Performed By: #### P THINT #### [facility] [address] [place] [address] Dr. Ember Teague EGFR-NON AF ARGENTINE 28 mL/min/1.73m2 Critically low >=60 [facility] Comment on above: Performed By: #### P THINT #### [facility] [address] [address] [address] Ember Teague Glucose [Mass/Vol] 199 mg/dL Critically high 74-106 [facility] Comment on above: Performed By: #### P THINT #### [facility] [address] [address] [address] Ember Teague Phosphate [Mass/Vol] 4.3 mg/dL Normal 2.6-4.7 [facility] Comment on above: Performed By: #### P THINT #### [facility] [address] [address] [address] Ember Teague Potassium [Moles/Vol] 4.9 mmol/L Normal 3.5-5.1 [facility] Comment on above: Performed By: #### P THINT #### [facility] [address] [address] [address] Ember Teague Sodium [Moles/Vol] 135 mmol/L Critically low 136-145 Th [facility] Comment on above: Performed By: #### P THINT #### [facility] [address] [place] [address] Dr. Ember Teague Urea nitrogen [Mass/Vol] 34.0 mg/dL Critically high 7.0-18.0 [facility] Comment on above: Performed By: #### P THINT #### [facility] [address] [place] [address] Dr. Ember Teague VITAMIN D 25 OHon 06-25-2022 VIT D 25-OH 40.6 ng/mL Normal [facility] Comment on above: Performed By: #### P THINT #### [facility] [address] [place] [address] Dr. Ember Teague VIT D RANGES SEE BELOW Normal [facility] Comment on above: Result Comment: <20 ng/mL Vit D deficient 20 - <30 ng/mL Vit D insufficient 30 - 100 ng/mL Vit D sufficient >100 ng/mL Potential Toxicity Performed By: #### P THINT #### [facility] [address] [place] [address] Dr. Ember Teague [facility]07 SARS-CoV-2 (COVID-19) RNA ALEXX+probe Ql (Unsp spec) Not detected Normal NOT DETECTED [facility] Comment on above: Result Comment: This test is not yet approved or cleared by the [place] FDA. When there are no FDA-approved or cleared tests available, and other criteria are met, FDA can make tests available under an emergency access mechanism called an Emergency Use Authorization (EUA). The EUA for this test is supported by the [employer] of Health and Human Service's (HHS's) declaration [...] consistent with SARS-CoV-2. Performed By: #### C [facility] #### [facility] [address] [place] [address] LSPINE WO CONon [...] Date: 2022-06-01 18:02 Normal [facility] XR LSPINE MIN 4 VIEWSon 05-07 XR [...] by: YANET HUERTA Date: 2022-05-21 15:[address] [facility] PTH INTACTon 05-03-2022 PTH, Intact 60 pg/mL Normal 15-65 [facility] Comment on above: Performed By: #### C VDTBH #### [facility] [address] [address] [address] Ember Teague VIT D 25-OH LABCORPon 2021 Vitamin D, 25-Hydroxy 26.1 ng/mL Critically low 30.0-100.0 [facility] Comment on above: Result Comment: Sara min D deficiency has been defined by the [place] of Medicine and an Endocrine Society practice guideline as a level of serum 25-OH vitamin D less than 20 ng/mL (1,2). The Endocrine Society went on to further define vitamin D insufficiency as a level between 21 and 29 ng/mL (2). 1. IOM ([place] of Medicine). 2010. Dietary reference intakes for calcium and D. [place]: The National Academies Press. 2. Sherice MF, Wendy NC, Huan ZHONG, et al. Evaluation, treatment, and prevention of vitamin D deficiency: an Endocrine Society clinical practice guideline. JCEM. 2010; 96(7):1911-30. Performed By: #### R ENAL #### [facility] [address] [address] [address] Ember Teague FERRITINon 05-02-2022 Ferritin [Mass/Vol] 590.0 ng/mL Critically high 8.0-252.0 [facility] Comment on above: Performed By: #### R ENAL #### [facility] [address] [place] [address] Dr. Ember Teague HEMOGRAM AND PLATELon 2021 Hematocrit (Bld) [Volume fraction] 28.4 % Critically low 36.0-48.0 [facility] Comment on above: Performed By: #### C VDTBH #### [facility] [address] [place] [address] Dr. Ember Teague Hemoglobin (Bld) [Mass/Vol] 9.6 g/dL Critically low 12.0-16.0 [facility] Comment on above: Performed By: #### C VDTBH #### [facility] [address] [place] [address] Dr. Ember Teague MCH (RBC) [Entitic mass] 31.0 pg Normal 26.7-34.0 [facility] Comment on above: Performed By: #### C VDTBH #### [facility] [address] [place] [address] Dr. Ember Teague MCHC (RBC) [Mass/Vol] 33.8 g/dL Normal 29.9-35.2 [facility] Comment on above: Performed By: #### C VDTBH #### [facility] [address] [place] [address] Dr. Ember Teague MCV (RBC) [Entitic vol] 91.6 fL Normal 81.0-99.0 [facility] Comment on above: Performed By: #### C VDTBH #### [facility] [address] [place] [address] Dr. Ember Teague PLT 189 103/ul Normal 150-450 [facility] Comment on above: Performed By: #### C VDTBH #### [facility] [address] [place] [address] Dr. Ember Teague RBC 3.10 106/ul Critically low 4.20-5.40 [facility] Comment on above: Performed By: #### C VDTBH #### [facility] [address] [place] [address] Dr. Ember Teague WBC 6.2 103/ul Normal 4.0-11.0 [facility] Comment on above: Performed By: #### C VDTBH #### [facility] [address] [place] [address] Dr. Ember Teague IRON AND TIBCon 05-02-2022 % SATURATION 34.3 % Normal [facility] Comment on above: Performed By: #### R ENAL #### [facility] [address] [place] [address] Dr. Ember Teague Iron [Mass/Vol] 69.0 ug/dL Normal 50.0-170.0 [facility] Comment on above: Performed By: #### R ENAL #### [facility] [address] [place] [address] Dr. Ember Teague TIBC DIRECT 201.0 ug/dL Critically low 250.0-450.[address] [facility] Comment on above: Performed By: #### R ENAL #### [facility] [address] [place] [address] Dr. Ember Teague MAGNESIUMon 05-02-2022 Magnesium [Mass/Vol] 1.7 mg/dL Critically low 1.8-2.4 [facility] Comment on above: Performed By: #### C VDTBH #### [facility] [address] [place] [address] Dr. Ember Teague RENAL FUNCTION PANELon 05-02 Albumin [Mass/Vol] 3.6 g/dL Normal 3.4-5.0 [facility] Comment on above: Performed By: #### C VDTBH #### [facility] [address] [place] [address] Dr. Ember Teague Calcium [Mass/Vol] 9.2 mg/dL Normal 8.5-10.1 [facility] Comment on above: Performed By: #### C VDTBH #### [facility] [address] [place] [address] Dr. Ember Teague Chloride [Moles/Vol] 107 mmol/L Normal 98-107 [facility] Comment on above: Performed By: #### C VDTBH #### [facility] [address] [address] [address] Ember Teague CO2 [Moles/Vol] 21.2 mmol/L Normal 21.0-32.0 [facility] Comment on above: Performed By: #### C VDTBH #### [facility] [address] [address] [address] Ember Teague Creatinine [Mass/Vol] 1.75 mg/dL Critically high 0.55-1.02 [facility] Comment on above: Performed By: #### C VDTBH #### [facility] [address] [address] [address] Ember Teague EGFR-AF ARGENTINE 34 mL/min/1.73m2 Critically low >=60 [facility] Comment on above: Performed By: #### C VDTBH #### [facility] [address] [place] [address] Dr. Ember Teague EGFR-NON AF ARGENTINE 28 mL/min/1.73m2 Critically low >=60 [facility] Comment on above: Performed By: #### C VDTBH #### [facility] [address] [address] [address] Ember Teague Glucose [Mass/Vol] 193 mg/dL Critically high 74-106 [facility] Comment on above: Performed By: #### C VDTBH #### [facility] [address] [address] [address] Ember Teague Phosphate [Mass/Vol] 4.2 mg/dL Normal 2.6-4.7 [facility] Comment on above: Performed By: #### C VDTBH #### [facility] [address] [address] [address] Ember Teague Potassium [Moles/Vol] 5.1 mmol/L Normal 3.5-5.1 [facility] Comment on above: Performed By: #### C VDTBH #### [facility] [address] [address] [address] Ember Teague Sodium [Moles/Vol] 139 mmol/L Normal 136-145 [facility] Comment on above: Performed By: #### C VDTBH #### [facility] [address] [place] [address] Dr. Ember Teague Urea nitrogen [Mass/Vol] 34.0 mg/dL Critically high 7.0-18.0 [facility] Comment on above: Performed By: #### C VDTBH #### [facility] [address] [place] [address] Dr. Ember Teague UA RANDOM W/MICROSCOPICon BACTERIA SMALL Abnormal NONE SEEN [facility] Comment on above: Performed By: #### C VDTBH #### [facility] [address] [place] [address] Dr. Ember Taegue Bilirubin Ql (U) Negative Normal NEGATIVE [facility] Comment on above: Performed By: #### C VDTBH #### [facility] [address] [place] [address] Dr. Ember Teague CAST NONE SEEN Normal NONE SEEN [facility] Comment on above: Performed By: #### C VDTBH #### [facility] [address] [place] [address] Dr. Ember Teague Clarity (U) CLEAR Normal CLEAR [facility] Comment on above: Performed By: #### C VDTBH #### [facility] [address] [place] [address] Dr. Ember Teague Color (U) LT. YELLOW Normal YELLOW [facility] Comment on above: Performed By: #### C VDTBH #### [facility] [address] [place] [address] Dr. Ember Teague Crystals LM Nom (Urine sed) NONE SEEN Normal NONE SEEN [facility] Comment on above: Performed By: #### C VDTBH #### [facility] [address] [place] [address] Dr. Ember Teague Epithelial cells LM Ql (Urine sed) MODERATE Abnormal NONE SEEN /RARE [facility] Comment on above: Performed By: #### C VDTBH #### [facility] [address] [place] [address] Dr. Ember Teague Glucose Ql (U) Negative Normal NEGATIVE [facility] Comment on above: Performed By: #### C VDTBH #### [facility] [address] [place] [address] Dr. Ember Teague Hemoglobin Ql (U) Negative Normal NEGATIVE [facility] Comment on above: Performed By: #### C VDTBH #### [facility] [address] [place] [address] Dr. Ember Teague Ketones Ql (U) Negative Normal NEGATIVE [facility] Comment on above: Performed By: #### C VDTBH #### [facility] [address] [place] [address] Dr. Ember Teague LEUKOCYTES TRACE Abnormal NEGATIVE [facility] Comment on above: Performed By: #### C VDTBH #### [facility] [address] [place] [address] Dr. Ember Teague MUCOUS NONE SEEN Normal NONE SEEN [facility] Comment on above: Performed By: #### C VDTBH #### [facility] [address] [place] [address] Dr. Ember Teague Nitrite Ql (U) Negative Normal NEGATIVE [facility] Comment on above: Performed By: #### C VDTBH #### [facility] [address] [place] [address] Dr. Ember Teague pH (U) 5.0 [pH] Normal 5-9 [facility] Comment on above: Performed By: #### C VDTBH #### [facility] [address] [place] [address] Dr. Ember Teague RBC NONE SEEN Abnormal 0-2 [facility] Comment on above: Performed By: #### C VDTBH #### [facility] [address] [place] [address] Dr. Ember Teague SPEC GRAVITY 1.015 Normal 1.005-<=1.025 [facility] Comment on above: Performed By: #### C VDTBH #### [facility] [address] [place] [address] Dr. Ember Teague UA PROTEIN TRACE Normal NEGATIVE/ TRACE [facility] Comment on above: Performed By: #### C VDTBH #### [facility] [address] [place] [address] Dr. Ember Teague Urobilinogen Qn (U) 0.2 {Esau'U}/dL Normal 0.2 - 1. 0 [facility] Comment on above: Performed By: #### C VDTBH #### [facility] [address] [place] [address] Dr. Ember Teague WBC 0-2 Abnormal NONE SEEN [facility] Comment on above: Performed By: #### C VDTBH #### [facility] [address] [place] [address] Dr. Ember Teague URIC ACID SERUMon 05-02-2022 Urate [Mass/Vol] 4.4 mg/dL Normal 2.6-6.0 [facility] Comment on above: Performed By: #### C #### [facility] [address] [place] [address] Dr. Ember Teague URINE T PROTEIN CREAT RATIOo n 05-02-2022 Protein (U) [Mass/Vol] 33.7 mg/dL Critically high <=12.0 [facility] Comment on above: Performed By: #### C VDTBH #### [facility] [address] [place] [address] Dr. Ember Teague UR PROT CREAT RAT 0.69 Normal [facility] Comment on above: Performed By: #### C VDTBH #### [facility] [address] [place] [address] Dr. Ember Teague URINE CREAT 48.93 mg/dL Normal 20.00-300.00 [facility] Comment on above: Performed By: #### C VDTBH #### [facility] [address] [place] [address] Dr. Ember Teague Vital Signs Date Time Vital Sign Value Performing Clinician Facility 11-18-2023 10:00-0500 Body height 168.91 cm Ron Martinez Other [facility] Other 11-18-2023 10:00-0500 Body mass index (BMI) [Ratio] 29.85 kg/m2 Ron Doreen Other [facility] Other 11-18-2023 10:00-0500 Body temperature 97.3 [degF] Ron Doreen Other [facility] Other 11-18-2023 10:00-0500 Body weight 85.19 kg Ron Doreen Other [facility] Other 11-18-2023 10:00-0500 Diastolic blood pressure 79 mm[Hg] Ron Doreen Other [facility] Other 11-18-2023 10:00-0500 Respiratory rate 18 /min Ron Doreen Other [facility] Other 11-18-2023 10:00-0500 SaO2% (BldA) [Mass fraction] 98 % Ron Doreen Other [facility] Other 11-18-2023 10:00-0500 Systolic blood pressure 149 mm[Hg] Ron Doreen Other [facility] Other 11-04-2023 11:00-0500 Body height 168.91 cm Ron Doreen Other [facility] Other 11-04-2023 11:00-0500 Body mass index (BMI) [Ratio] 30.17 kg/m2 Ron Doreen Other [facility] Other 11-04-2023 11:00-0500 Body temperature 97.6 [degF] Ron Doreen Other [facility] Other 11-04-2023 11:00-0500 Body weight 86.09 kg Ron Doreen Other [facility] Other 11-04-2023 11:00-0500 Diastolic blood pressure 76 mm[Hg] Ron Doreen Other [facility] Other 11-04-2023 11:00-0500 Respiratory rate 18 /min Ron Doreen Other [facility] Other 11-04-2023 11:00-0500 SaO2% (BldA) [Mass fraction] 98 % Ron Doreen Other [facility] Other 11-04-2023 11:00-0500 Systolic blood pressure 153 mm[Hg] Ron Doreen Other [facility] Other 10-15-2023 13:00-0500 Body height 168.91 cm Ron Doreen Other [facility] Other 10-15-2023 13:00-0500 Body mass index (BMI) [Ratio] 29.82 kg/m2 Ron Doreen Other [facility] Other 10-15-2023 13:00-0500 Body temperature 97.5 [degF] Ron Doreen Other [facility] Other 10-15-2023 13:00-0500 Body weight 85.1 kg Ron Doreen Other [facility] Other 10-15-2023 13:00-0500 Diastolic blood pressure 68 mm[Hg] Ron Doreen Other [facility] Other 10-15-2023 13:00-0500 Respiratory rate 18 /min Ron Doreen Other [facility] Other 10-15-2023 13:00-0500 SaO2% (BldA) [Mass fraction] 98 % Ron Doreen Other [facility] Other 10-15-2023 13:00-0500 Systolic blood pressure 113 mm[Hg] Ron Doreen Other [facility] Other 08-27-2023 09:40-0500 Body height 168.91 cm Azudc [employer] Other [facility] Other 08-27-2023 09:40-0500 Body mass index (BMI) [Ratio] 30.2 kg/m2 Aziz [employer] Other [facility] Other 08-27-2023 09:40-0500 Body temperature 96.7 [degF] Aziz [employer] Other [facility] Other 08-27-2023 09:40-0500 Body weight 86.18 kg Aziz [employer] Other [facility] Other 08-27-2023 09:40-0500 Diastolic blood pressure 72 mm[Hg] Aziz [employer] Other [facility] Other 08-27-2023 09:40-0500 Respiratory rate 18 /min Aziz [employer] Other [facility] Other 08-27-2023 09:40-0500 SaO2% (BldA) [Mass fraction] 98 % MaryA nne Ackerman Other [facility] Other 08-27-2023 09:40-0500 Systolic blood pressure 153 mm[Hg] Mary Anne Ackerman Other [facility] Other 08-15-2023 10:20-0500 Body height 168.91 cm Ron Doreen Other [facility] Other 08-15-2023 10:20-0500 Body mass index (BMI) [Ratio] 30.2 kg/m2 Ron Doreen Other [facility] Other 08-15-2023 10:20-0500 Body temperature 97.1 [degF] Ron Doreen Other [facility] Other 08-15-2023 10:20-0500 Body weight 86.18 kg Ron Doreen Other [facility] Other 08-15-2023 10:20-0500 Diastolic blood pressure 79 mm[Hg] Ron Doreen Other [facility] Other 08-15-2023 10:20-0500 Respiratory rate 18 /min Ron Doreen Other [facility] Other 08-15-2023 10:20-0500 SaO2% (BldA) [Mass fraction] 98 % Ron Doreen Other [facility] Other 08-15-2023 10:20-0500 Systolic blood pressure 164 mm[Hg] Ron Doreen Other [facility] Other 08-13-2023 15:40-0500 Body height 168.91 cm Ron Doreen Other [facility] Other 08-13-2023 15:40-0500 Body mass index (BMI) [Ratio] 30.24 kg/m2 Ron Doreen Other [facility] Other 08-13-2023 15:40-0500 Body temperature 97.2 [degF] Ron Doreen Other [facility] Other 08-13-2023 15:40-0500 Body weight 86.27 kg Ron Doreen Other [facility] Other 08-13-2023 15:40-0500 Diastolic blood pressure 79 mm[Hg] Ron Doreen Other [facility] Other 08-13-2023 15:40-0500 Respiratory rate 18 /min Ron Doreen Other [facility] Other 08-13-2023 15:40-0500 SaO2% (BldA) [Mass fraction] 98 % Ron Doreen Other [facility] Other 08-13-2023 15:40-0500 Systolic blood pressure 186 mm[Hg] Ron Doreen Other [facility] Other 08-01-2023 13:00-0400 Body height 168.91 cm Ron Doreen Other [facility] Other 08-01-2023 13:00-0400 Body mass index (BMI) [Ratio] 30.55 kg/m2 Ron Doreen Other [facility] Other 08-01-2023 13:00-0400 Body temperature 97.8 [degF] Ron Doreen Other [facility] Other 08-01-2023 13:00-0400 Body weight 87.18 kg Ron Doreen Other [facility] Other 08-01-2023 13:00-0400 Diastolic blood pressure 72 mm[Hg] Ron Doreen Other [facility] Other 08-01-2023 13:00-0400 Respiratory rate 18 /min Ron Doreen Other [facility] Other 08-01-2023 13:00-0400 SaO2% (BldA) [Mass fraction] 98 % Ron Doreen Other [facility] Other 08-01-2023 13:00-0400 Systolic blood pressure 160 mm[Hg] Ron Doreen Other [facility] Other 06-24-2023 11:40-0400 Body height 168.91 cm Ron Doreen Other [facility] Other 06-24-2023 11:40-0400 Body mass index (BMI) [Ratio] 29.89 kg/m2 Ron Doreen Other [facility] Other 06-24-2023 11:40-0400 Body temperature 97.3 [degF] Ron Doreen Other [facility] Other 06-24-2023 11:40-0400 Body weight 85.28 kg Ron Doreen Other [facility] Other 06-24-2023 11:40-0400 Diastolic blood pressure 75 mm[Hg] Ron Doreen Other [facility] Other 06-24-2023 11:40-0400 Respiratory rate 18 /min Ron Doreen Other [facility] Other 06-24-2023 11:40-0400 SaO2% (BldA) [Mass fraction] 99 % Ron Doreen Other [facility] Other 06-24-2023 11:40-0400 Systolic blood pressure 129 mm[Hg] Ron Doreen Other [facility] Other 06-06-2023 15:20-0400 Body height 168.91 cm Ron Doreen Other [facility] Other 06-06-2023 15:20-0400 Body mass index (BMI) [Ratio] 29.92 kg/m2 Ron Doreen Other [facility] Other 06-06-2023 15:20-0400 Body temperature 96.5 [degF] Ron Doreen Other [facility] Other 06-06-2023 15:20-0400 Body weight 85.37 kg Ron Doreen Other [facility] Other 06-06-2023 15:20-0400 Diastolic blood pressure 49 mm[Hg] Ron Doreen Other [facility] Other 06-06-2023 15:20-0400 Respiratory rate 18 /min Ron Doreen Other [facility] Other 06-06-2023 15:20-0400 SaO2% (BldA) [Mass fraction] 99 % Ron Doreen Other [facility] Other 06-06-2023 15:20-0400 Systolic blood pressure 128 mm[Hg] Ron Doreen Other [facility] Other 04-30-2023 11:40-0400 Body height 168.91 cm Ron Doreen Other [facility] Other 04-30-2023 11:40-0400 Body mass index (BMI) [Ratio] 30.52 kg/m2 Ron Doreen Other [facility] Other 04-30-2023 11:40-0400 Body temperature 96.9 [degF] Ron Doreen Other [facility] Other 04-30-2023 11:40-0400 Body weight 87.09 kg Ron Doreen Other [facility] Other 04-30-2023 11:40-0400 Diastolic blood pressure 80 mm[Hg] Ron Doreen Other [facility] Other 04-30-2023 11:40-0400 Respiratory rate 18 /min Ron Doreen Other [facility] Other 04-30-2023 11:40-0400 SaO2% (BldA) [Mass fraction] 98 % Ron Doreen Other [facility] Other 04-30-2023 11:40-0400 Systolic blood pressure 150 mm[Hg] Ron Doreen Other [facility] Other 04-06-2023 09:00-0400 Body height 168.91 cm Ron Doreen Other [facility] Other 04-06-2023 09:00-0400 Body mass index (BMI) [Ratio] 30.36 kg/m2 Ron Doreen Other [facility] Other 04-06-2023 09:00-0400 Body weight 86.64 kg Ron Doreen Other [facility] Other 04-06-2023 09:00-0400 Diastolic blood pressure 54 mm[Hg] Ron Doreen Other [facility] Other 04-06-2023 09:00-0400 Respiratory rate 18 /min Ron Doreen Other [facility] Other 04-06-2023 09:00-0400 SaO2% (BldA) [Mass fraction] 98 % Ron Doreen Other [facility] Other 04-06-2023 09:00-0400 Systolic blood pressure 144 mm[Hg] Ron Doreen Other [facility] Other 04-02-2023 14:40-0400 Body height 168.91 cm Ron Doreen Other [facility] Other 04-02-2023 14:40-0400 Body mass index (BMI) [Ratio] 30.55 kg/m2 Ron Doreen Other [facility] Other 04-02-2023 14:40-0400 Body temperature 97 [degF] Ron Doreen Other [facility] Other 04-02-2023 14:40-0400 Body weight 87.18 kg Ron Doreen Other [facility] Other 04-02-2023 14:40-0400 Diastolic blood pressure 76 mm[Hg] Ron Doreen Other [facility] Other 04-02-2023 14:40-0400 Respiratory rate 18 /min Ron Doreen Other [facility] Other 04-02-2023 14:40-0400 SaO2% (BldA) [Mass fraction] 98 % Ron Doreen Other [facility] Other 04-02-2023 14:40-0400 Systolic blood pressure 183 mm[Hg] Ron Doreen Other [facility] Other 03-07-2023 09:20-0400 Body height 168.91 cm Ron Doreen Other [facility] Other 03-07-2023 09:20-0400 Body mass index (BMI) [Ratio] 30.52 kg/m2 Ron Doreen Other [facility] Other 03-07-2023 09:20-0400 Body temperature 97.1 [degF] Ron Doreen Other [facility] Other 03-07-2023 09:20-0400 Body weight 87.09 kg Ron Doreen Other [facility] Other 03-07-2023 09:20-0400 Diastolic blood pressure 72 mm[Hg] Ron Doreen Other [facility] Other 03-07-2023 09:20-0400 Respiratory rate 18 /min Ron Doreen Other [facility] Other 03-07-2023 09:20-0400 SaO2% (BldA) [Mass fraction] 97 % Ron Doreen Other [facility] Other 03-07-2023 09:20-0400 Systolic blood pressure 130 mm[Hg] Ron Doreen Other [facility] Other 12-20-2022 13:20-0400 Body height 168.91 cm Ron Doreen Other [facility] Other 12-20-2022 13:20-0400 Body mass index (BMI) [Ratio] 30.68 kg/m2 Ron Doreen Other [facility] Other 12-20-2022 13:20-0400 Body temperature 97.1 [degF] Ron Doreen Other [facility] Other 12-20-2022 13:20-0400 Body weight 87.54 kg Ron Doreen Other [facility] Other 12-20-2022 13:20-0400 Diastolic blood pressure 72 mm[Hg] Ron Doreen Other [facility] Other 12-20-2022 13:20-0400 Respiratory rate 18 /min Ron Doreen Other [facility] Other 12-20-2022 13:20-0400 SaO2% (BldA) [Mass fraction] 99 % Ron Doreen Other [facility] Other 12-20-2022 13:20-0400 Systolic blood pressure 139 mm[Hg] Ron Doreen Other [facility] Other 11-05-2022 14:00-0500 Body height 168.91 cm Ron Doreen Other [facility] Other 11-05-2022 14:00-0500 Body mass index (BMI) [Ratio] 30.59 kg/m2 Ron Doreen Other [facility] Other 11-05-2022 14:00-0500 Body temperature 96.8 [degF] Ron Doreen Other [facility] Other 11-05-2022 14:00-0500 Body weight 87.27 kg Ron Doreen Other [facility] Other 11-05-2022 14:00-0500 Diastolic blood pressure 72 mm[Hg] Ron Doreen Other [facility] Other 11-05-2022 14:00-0500 Respiratory rate 18 /min Ron Doreen Other [facility] Other 11-05-2022 14:00-0500 SaO2% (BldA) [Mass fraction] 98 % Ron Doreen Other [facility] Other 11-05-2022 14:00-0500 Systolic blood pressure 157 mm[Hg] Ron Doreen Other [facility] Other 09-27-2022 16:00-0500 Body height 168.91 cm Jana Monson Other [facility] Other 09-27-2022 16:00-0500 Body mass index (BMI) [Ratio] 30.55 kg/m2 Jana Monson Other [facility] Other 09-27-2022 16:00-0500 Body temperature 96.8 [degF] Jana De La Rosamiller Other [facility] Other 09-27-2022 16:00-0500 Body weight 87.18 kg Jana Monson Other [facility] Other 09-27-2022 16:00-0500 Diastolic blood pressure 73 mm[Hg] Jana Monson Other [facility] Other 09-27-2022 16:00-0500 Respiratory rate 18 /min Jana Monson Other [facility] Other 09-27-2022 16:00-0500 SaO2% (BldA) [Mass fraction] 98 % Jana Monson Other [facility] Other 09-27-2022 16:00-0500 Systolic blood pressure 159 mm[Hg] Jana De La Rosamiller Other [facility] Other 08-22-2022 12:00-0500 Body height 168.91 cm Ron Doreen Other [facility] Other 08-22-2022 12:00-0500 Body mass index (BMI) [Ratio] 30.65 kg/m2 Ron Doreen Other [facility] Other 08-22-2022 12:00-0500 Body temperature 96.9 [degF] Ron Doreen Other [facility] Other 08-22-2022 12:00-0500 Body weight 87.45 kg Ron Doreen Other [facility] Other 08-22-2022 12:00-0500 Diastolic blood pressure 75 mm[Hg] Ron Doreen Other [facility] Other 08-22-2022 12:00-0500 Respiratory rate 18 /min Ron Doreen Other [facility] Other 08-22-2022 12:00-0500 SaO2% (BldA) [Mass fraction] 96 % Ron Doreen Other [facility] Other 08-22-2022 12:00-0500 Systolic blood pressure 121 mm[Hg] Ron Doreen Other [facility] Other 05-08-2022 10:20-0400 Body height 168.91 cm Ron Doreen Other [facility] Other 05-08-2022 10:20-0400 Body mass index (BMI) [Ratio] 31.54 kg/m2 Ron Doreen Other [facility] Other 05-08-2022 10:20-0400 Body temperature 97.6 [degF] Ron Doreen Other [facility] Other 05-08-2022 10:20-0400 Body weight 89.99 kg Ron Doreen Other [facility] Other 05-08-2022 10:20-0400 Diastolic blood pressure 68 mm[Hg] Ron Doreen Other [facility] Other 05-08-2022 10:20-0400 Respiratory rate 18 /min Ron Doreen Other [facility] Other 05-08-2022 10:20-0400 SaO2% (BldA) [Mass fraction] 98 % Ron Doreen Other [facility] Other 05-08-2022 10:20-0400 Systolic blood pressure 131 mm[Hg] Ron Doreen Other [facility] Other 01-18-2022 10:20-0400 Body height 168.91 cm Ron Doreen Other [facility] Other 01-18-2022 10:20-0400 Body mass index (BMI) [Ratio] 31 kg/m2 Ron Doreen Other [facility] Other 01-18-2022 10:20-0400 Body temperature 96.4 [degF] Ron Doreen Other [facility] Other 01-18-2022 10:20-0400 Body weight 88.45 kg Ron Doreen Other [facility] Other 01-18-2022 10:20-0400 Diastolic blood pressure 74 mm[Hg] Ron Doreen Other [facility] Other 01-18-2022 10:20-0400 Respiratory rate 18 /min Ron Doreen Other [facility] Other 01-18-2022 10:20-0400 SaO2% (BldA) [Mass fraction] 97 % Ron Doreen Other [facility] Other 01-18-2022 10:20-0400 Systolic blood pressure 170 mm[Hg] Ron Doreen Other [facility] Other Encounters Encounter Date Encounter Type Care Provider Facility Start: 07-13-2024 End: 07-13-2024 Bamboo flowsheet Lorraine Mayer MD Work Phone: [facility] Start: 07-13-2024 End: 07-13-2024 [employer] flowsheet Lorraine Mayer MD Work Phone: [facility] Start: 07-13-2024 End: 07-13-2024 Office outpatient visit 25 minutes Lorraine Mayer MD Work Phone: [facility] Comment on above: Type 2 diabetes diony itus with hyperglycemia, with long-term 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 (CMS/HCC) (Primary Dx); Vitamin D deficiency; Microalbuminuria; Hyperlipemia, mixed (CMS/HCC); Primary hypertension (CMS/HCC); Insulin long-term use (CMS/HCC); 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CMS/HCC); Encounter for dietary consultation; Chronic renal disease, stage IV (CMS/HCC) Start: 07-13-2024 End: 07-13-2024 ambulatory LORRAINE MAYER Not Available Start: 06-25-2024 End: 06-25-2024 ambulatory GA Moreno CHERIE Not Available Start: 06-04-2024 End: 06-04-2024 ambulatory LAVONNE A PETITTI Not Available Start: 05-25-2024 End: 05-25-2024 ambulatory LAVONNE A PETITTI Not Available Start: 05-11-2024 End: 05-11-2024 ambulatory [facility] Start: 04-21-2024 End: 04-21-2024 ambulatory LAVONNE A PETITTI Not Available Start: 04-16-2024 End: 04-16-2024 ambulatory GA Moreno LAI Not Available Start: 03-16-2024 End: 03-16-2024 ambulatory LAVONNE A PETITTI Not Available Start: 02-10-2024 End: 02-10-2024 ambulatory [facility] Start: 01-17-2024 End: 01-17-2024 ambulatory THUAN DELVALLE [facility] Start: 01-16-2024 End: 01-16-2024 ambulatory GA H CHERIE Not Available Start: 12-21-2023 Refill Luis dominique PA-C Work Phone: [facility] Comment on above: Med Refill Start: 11-28-2023 End: 11-28-2023 ambulatory LAVONNE A PETITTI Not Available Start: 11-18-2023 End: 11-18-2023 ambulatory Ron Doreen Other [facility] Other Start: 11-18-2023 Office outpatient vi sit 15 minutes Ron Doreen [facility] Start: 11-05-2023 End: 11-05-2023 ambulatory GA LAI Not Available Start: 11-04-2023 (INJECTION) INJECTION Ron Doreen [facility] Start: 11-04-2023 End: 11-04-2023 ambulatory Ron Doreen Other [facility] Other Start: 10-22-2023 End: 10-22-2023 ambulatory GA Moreno LAI Not Available Start: 10-15-2023 End: 10-15-2023 ambulatory Ron Doreen Other [facility] Other Start: 10-15-2023 Office outpatient vi sit 15 minutes Ron Doreen [facility] Start: 10-08-2023 End: 10-08-2023 ambulatory Aziz Bakhous Other [facility] Other Start: 10-08-2023 Telephone encounter Aziz Bakhous [facility] Start: 09-15-2023 End: 09-15-2023 ambulatory Ron Doreen Other [facility] Other Start: 09-15-2023 Telephone encounter Ron Doreen [facility] Start: 09-09-2023 End: 09-09-2023 ambulatory Ron Doreen Other [facility] Other Start: 09-09-2023 Telephone encounter Ron Doreen [facility] Start: 08-27-2023 (INJECTION) INJECTION Aziz Bakhous [facility] Start: 08-27-2023 End: 08-27-2023 ambulatory Aziz Bakhous Other [facility] Other Start: 08-15-2023 (INJECTION) INJECTION Ron Doreen [facility] Start: 08-15-2023 End: 08-15-2023 ambulatory Ron Doreen Other [facility] Other Start: 08-13-2023 (INJECTION) INJECTION Ron D[facility]en [facility] Start: 08-13-2023 End: 08-13-2023 ambulatory Ron Doreen Other [facility] Other Start: 08-01-2023 End: 08-01-2023 ambulatory Ron Doreen Other [facility] Other Start: 08-01-2023 Office outpatient vi sit 15 minutes Ron Doreen [facility] Start: 06-24-2023 End: 06-24-2023 ambulatory Ron Doreen Other [facility] Other Start: 06-24-2023 Office outpatient vi sit 10 minutes Ron Doreen [facility] Start: 06-06-2023 End: 06-06-2023 ambulatory Ron Doreen Other [facility] Other Start: 06-06-2023 Office outpatient vi sit 15 minutes Ron Doreen [facility] Eliel Start: 04-30-2023 End: 04-30-2023 ambulatory Ron Doreen Other [facility] Other Start: 04-30-2023 Office outpatient vi sit 15 minutes Ron Doreen [facility] Start: 04-06-2023 (INJECTION) INJECTION Ron D[facility]en [facility] Start: 04-06-2023 End: 04-06-2023 ambulatory Ron Doreen Other [facility] Other Start: 04-06-2023 Telephone encounter Ron Doreen [facility] Start: 04-02-2023 End: 04-02-2023 ambulatory Ron Doreen Other [facility] Other Start: 04-02-2023 Office outpatient vi sit 15 minutes Ron Doreen [facility] Start: 04-02-2023 Telephone encounter Ron Doreen [facility] Start: 03-07-2023 End: 03-07-2023 ambulatory Ron Doreen Other [facility] Other Start: 03-07-2023 Office outpatient vi sit 15 minutes Ron Doreen [facility] Eliel Start: 01-22-2023 End: 01-23-2023 ambulatory RON DOREEN Facility:[facility] Start: 12-20-2022 End: 12-20-2022 ambulatory Ron Doreen Other [facility] Other Start: 12-20-2022 Office outpatient vi sit 15 minutes Ron Doreen [facility] Eliel Start: 12-17-2022 End: 12-18-[address] DHRUV RUBI . Facility:[facility] Start: 12-10-2022 End: 12-11-2022 ambulatory RON DOREEN Facility:[facility] Start: 11-20-2022 End: 11-21-[address] BENI APARICIO Facility:[facility] Start: 11-05-2022 End: 11-05-2022 ambulatory Ron Doreen Other [facility] Other Start: 11-05-2022 Office outpatient vi sit 15 minutes Ron Doreen [facility] Start: 10-29-2022 End: 10-30-[address] JANA MONSON Facility:[facility] Start: 10-24-2022 End: 10-24-[address] LILLIAN ACOSTA . Facility:[facility] Start: 10-24-2022 End: 10-25-[address] DHRUV RUBI . Facility:[facility] Start: 09-27-2022 End: 09-27-2022 ambulatory Jana Monson Other [facility] Other Start: 09-27-2022 Office outpatient vi sit 15 minutes Jana Monson [facility] Start: 09-18-2022 End: 09-19-2022 ambulatory RON DOREEN Facility:[facility] Start: 09-11-2022 End: 09-11-[address] DHRUV RUBI . Facility:[facility] Start: 08-22-2022 End: 08-22-2022 ambulatory Ron Doreen Other [facility] Other Start: 08-22-2022 Office outpatient vi sit 15 minutes Ron Doreen [facility] Start: 08-13-2022 End: 08-14-2022 ambulatory RON DOREEN Facility:[facility] Start: 06-25-2022 End: 06-26-[address] DHRUV RUBI . Facility:[facility] Start: 06-18-2022 End: 06-18-[address] DHRUV RUBI . Facility:[facility] Start: 06-01-2022 End: 06-02-[address] YANET HUERTA Facility:[facility] Start: 05-28-2022 End: 05-28-2022 ambulatory Ron Doreen Other [facility] Other Start: 05-28-2022 Telephone encounter Ron Doreen [facility] Start: 05-21-2022 End: 05-22-[address] DHRUV RUBI . Facility:[facility] Start: 05-16-2022 End: 05-16-2022 ambulatory Ron Doreen Other [facility] Other Start: 05-16-2022 Telephone encounter Ron Doreen [facility] Start: 05-10-2022 End: 05-10-2022 ambulatory Ron Doreen Other [facility] Other Start: 05-10-2022 Telephone encounter Ron Doreen [facility] Start: 05-08-2022 End: 05-08-2022 ambulatory Ron Doreen Other [facility] Other Start: 05-08-2022 Office outpatient vi sit 25 minutes Ron Doreen [facility] Start: 05-02-2022 End: 05-03-2022 ambulatory RON DOREEN Facility: Start: 04-24-2022 End: 04-24-2022 ambulatory Mary Anne Bakhous Other [facility] Other Start: 04-24-2022 Telephone encounter Aziz Tyron [facility] Start: 01-18-2022 End: 01-18-2022 ambulatory Ron Doreen Other [facility] Other Start: 01-18-2022 Office outpatient vi sit 25 minutes Ron Doreen [facility] Eliel Start: 05-21-2017 End: 05-22-2017 Ambulatory DEFAULT PHYSICIAN Facility:[facility] Procedures Date Procedure Procedure Detail Performing Clinician Start: 07-13-2024 Gluc bld gluc mntr d ev cleared fda spec home use Lorraine Mayer MD Work Phone: Start: 01-11-2021 History of coronary artery bypass grafting H/O four vessel coronary artery bypass graft Luis Quiles PA-C Work Phone: Start: 12-28-2020 Adult depression screening assessment Luis Quiles PA-C Work Phone: History of coronary artery bypass grafting H/O four vessel coronary artery bypass graft Luis Quiles PA-C Work Phone: Plan of Treatment Date Care Activity Detail Author Start: 03-16-2025 End: 03-16-2025 Patient encounter procedure 03/16/2025 8:35 AM EDT Office Visit [facility] [address] [place] [address] Lavonne Longoria MD [address] [place] [address] [facility] Start: 11-16-2024 End: 11-16-2024 Patient encounter procedure 11/16/2024 9:50 AM EST Office Visit [facility] [address] [place] [address] Lorraine Mayer MD [address] [place] [address] [facility] Start: 09-28-2024 End: 09-28-2024 Patient encounter procedure 09/28/2024 11:30 AM EST Procedure Visit [facility] [address] [place] [id number] Ga Lai DPM [address] [place] [address] [facility] Start: 07-13-2024 End: 07-13-2024 Patient encounter procedure 07/13/2024 9:20 AM EDT Office Visit [facility] [address] [place] [address] Lorraine Mayer MD [address] [place] [address] Type 2 diabetes mellitus with hyperglycemia, with long-term 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 ([facility]) [facility] Comment on above: Type 2 diabetes diony itus with hyperglycemia, with long-term 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 ([facility]) Start: 06-07-2024 Influenza vaccination Influenza Vacc ine (#1) [facility] Start: 03-19-2024 Adult BMI Screening Adult BMI Screen ing [facility] Start: 03-19-2024 Tobacco Screening Tobacco Screening [facility] Start: 06-07-2023 COVID-19 Vaccine ( season) COVID-19 Vaccine ( season) [facility] Start: 06-07-2023 Influenza vaccination Influenza Vacc ine [facility] Start: 12-28-2021 Depression Screening Depression Scre ening [facility] Start: 2009 Fall Risk Screening Fall Risk Screen ing [facility] Start: 1994 Administration of varicella zoster vaccine Zoster (Shingles) Vaccine (1 of 2) [facility] Start: 12-15-1963 DTaP,Tdap and Td Vaccines (1 - Tdap) DTaP,Tdap and Td Vaccines (1 - Tdap) [facility] Start: 1962 Adult BMI Follow Up Plan Adult BMI Follow Up Plan [facility] Start: 1944 Medicare Annual Well ness Visit Medicare Annual Wellness Visit [facility] Immunizations Immunization Date Immunization Notes Care Provider Fa cility 07-10-2022 unknown vaccine or immune globulin Lorraine Mayer MD Work Phone: [facility] 07-20-2021 unknown vaccine or immune globulin Lorraine Mayer MD Work Phone: [facility] 07-18-2020 Seasonal trivalent influenza vaccine, adjuvanted, preservative free Luis Kb PA-C Work Phone: [facility] 07-18-2020 influenza virus vacc ine, unspecified formulation Luis Kb PA-C Work Phone: [facility] 07-22-2019 Seasonal trivalent influenza vaccine, adjuvanted, preservative free Luis Kb PA-C Work Phone: [facility] 07-20-2019 influenza, injectabl e, quadrivalent, preservative free Lorraine Mayer MD Work Phone: [facility] 07-14-2018 Seasonal trivalent influenza vaccine, adjuvanted, preservative free Luis Kb PA-C Work Phone: [facility] 07-15-2017 pneumococcal conjuga te vaccine, 13 valent Luis Kb PA-C Work Phone: [facility] 07-08-2017 influenza, high dose seasonal, preservative-free Luis Kb PA-C Work Phone: [facility] 07-25-2016 influenza, high dose seasonal, preservative-free Luis Kb PA-C Work Phone: [facility] 07-11-2015 influenza, high dose seasonal, preservative-free Luis Kb PA-C Work Phone: [facility] 07-16-2014 influenza, seasonal, injectable Luis Kb PA-C Work Phone: [facility] 07-10-2013 influenza, seasonal, injectable [facility]2012 influenza virus vacc ine, unspecified formulation Luis Kb PA-C [facility] 08-08-2012 pneumococcal polysaccharide vaccine, 23 valent Luis Kb PA-C [facility] 07-11-2011 influenza virus vacc ine, unspecified formulation Luis Kb PA-C Work Phone: [facility] [place] 08-15-2010 influenza virus vacc ine, unspecified formulation Luis Kb PA-C [facility] 07-26-2009 influenza virus vacc ine, unspecified formulation Luis Kb PA-C Work Phone: [facility] [place] 08-04-2008 influenza virus vacc ine, unspecified formulation Luis Kb PA-C Work Phone: [facility] [place] 08-13-2007 influenza virus vacc ine, unspecified formulation Luis [facility]b [facility]-C [facility]2004 influenza virus vacc ine, unspecified formulation Luis Kb PA-C Work Phone: [facility] [place] 08-09-2003 influenza virus vacc ine, unspecified formulation Luis Kb PA-C [facility] 08-09-2003 pneumococcal polysaccharide vaccine, 23 valent Luis Kb PA-C Work Phone: [facility] [employer] [facility] Payers Date Payer Category Payer Medicare [id number] 1960 Medicare [id number] 2. [id number] 1944 Unknown [id number] 2.16.84 0.1.336435.3.579.2.593 1944 Unknown [id number] 2.16.84 0.1.799264.3.579.2.593 1944 Unknown [id number] 2.16.84 0.1.594776.3.579.2.593 1944 Unknown [id number] 2.16.84 0.1.313742.3.579.2.593 1944 Unknown [id number] 2.16.84 0.1.328422.3.579.2.593 1944 Unknown [id number] 2.16.84 0.1.114342.3.579.2.593 1944 Unknown [id number] 2.16.84 0.1.601950.3.579.2.593 1944 Unknown [id number] 2.16.84 0.1.010018.3.579.2.593 1944 Unknown [id number] 2.16.84 0.1.258719.3.579.2.593 1944 Unknown [id number] 2.16.84 0.1.660524.3.579.2.593 1944 Unknown [id number] 2.16.84 0.1.509940.3.579.2.593 1944 Unknown [id number] 2.16.84 0.1.996422.3.579.2.593 1944 Unknown [id number] 2.16.84 0.1.057941.3.579.2.593 1944 Unknown [id number] 2.16.84 0.1.599980.3.579.2.593 1944 Unknown [id number] 2.16.84 0.1.856022.3.579.2.593 1944 Unknown [id number] 2.16.84 0.1.269877.3.579.2.593 1944 Unknown [id number] 2.16.8 40.1.682447.3.579.2.1286 1944 Unknown [id number] 2.16.84 0.1.662000.3.579.2.1259 1944 Unknown [id number] 2.16.84 0.1.698075.3.579.2.1259 1944 Unknown [id number] 2.16.84 0.1.365681.3.579.2.1259 1944 Unknown [id number] 2.16.84 0.1.714801.3.579.2.9 1944 Unknown [id number] 2.16.84 0.1.076157.3.579.2.125 1944 Unknown [id number] 2.16.84 0.1.021787.3.579.2.9 1944 Unknown [id number] 2.16.84 0.1.336565.3.579.2.1258 1944 Unknown [id number] 2.16.84 0.1.328206.3.579.2.125 1944 Unknown [id number] 2.16.84 0.1.804712.3.579.2.1258 1944 Unknown [id number] 2.16.84 0.1.093168.3.579.2.1259 1944 Unknown [id number] 2.16.84 0.1.677324.3.579.2.1259 Unknown Social History Date Type Detail Facility Unknown if ever smoked [facility] Other Start: 12-28-2020 End: 06-25-2024 Sex Assigned At [facility] Other Start: 09-20-2022 End: 03-14-2023 Tobacco smoking status PRIS Ex-smoker [facility] End: 10-07-1969 History of tobacco use Current smoker [facility] End: 10-07-1969 History of tobacco use Cigarette Smoker [facility] Start: 09-20-2022 End: 03-14-2023 Tobacco use and exposure Smokeless tobacco non-user [facility] Start: 03-19-2023 Alcohol intake Ex-drinker (finding) [facility] [employer] Start: 12-28-2020 End: 06-25-2024 History of Social function [facility] Do you belong to any clubs or organizations such as jain groups, unions, fraternal or athletic groups, or school groups? No [facility] Are you now , , , , never or living with a partner? [facility] How hard is it for y ou to pay for the very basics like food, housing, medical care, and heating Not hard at all [facility] Do you feel stress - tense, restless, nervous, or anxious, or unable to sleep at night because your mind is troubled all the time - these days [OSQ] Not at all [facility] [employer] [facility] Start: 1945 Sex Assigned At Not on file [facility] [employer] [facility] Start: 06-25-2024 Alcoholic beverage intake Not Asked [facility] Start: 10-21-2023 Alcohol Comment caffeine intake: 1-[address] [facility] Healthcare Goals Date Patient Goal Desired Activity /State Personal health goal Comment on above: Formatting of this n ote might be different from the original. Evaluation of progress towards goal: return home with homecare and support from [facility], children and grandchildren Clinical Notes 01-18-2022 to 07-13-2024 Lorraine Mayer MD - 07/13/2024 9:20 AM EDT Note Date & Type Note Facility 07-13-2024 History of Present illness Narrative Kylah Robin is a 78 y.o. female Lorraine Mayer MD presents with chief complaint of Diabetes Mellitus and Follow-up HPI: Interim History: 07/2024 Follow-up visit on 07/13/2024 for type 2 diabetes and hypoglycemia, blood sugar 180, a1c 6.3 on 06/2024 with her PCP. She is on long acting ? 30 units , NovoLog 10-12-15 units tid plus ISS#2, meter 10-66-24 %, avg 144, on levothyroxine 150 mcg and cytomel 5 mcg once daily. Interim History: 03/2024 Follow-up visit on 03/16/2024 for type 2 diabetes and hypoglycemia, blood sugar 250, a1c 7.4. She is on Levemir 40 am and 40 qhs twice a day, NovoLog 10-12-15 units tid plus ISS#2, meter 0-17-83%, avg 250. lab on 01/2024 GFR 23, LDL 69, TSH 0.252, FT3 3.05 (2.18-3.98), FT4 0.92 (0.76-1.46), VIT D 49, AL/CR 580. on levothyroxine 150 mcg and cytomel 5 mcg once daily by her PCP Interim History: 01/2024 Follow-up URGENT visit on 02/03/2024 for type 2 diabetes and hypoglycemia, blood sugar 173. She is on Levemir 50 am and 50 qhs twice a day, NovoLog 12-16-22 units tid, meter 14-51-35 %, avg 156 Interim History: 11/2023 Follow-up visit on 11/19/2023 for type 2 diabetes, A1c in the office 6.3 , blood sugar 224. She is on Levemir 50 am and 50 qhs twice a day, NovoLog 12-16-22 units tid, meter 9-65-27 %, avg 166. Interim History: 07/2023 Follow-up visit on 07/09/2023 for type 2 diabetes, A1c in the office 6.5 , blood sugar 252. She is on Levemir 50 am and 50 qhs twice a day, NovoLog 12-16-22 units tid, meter 4-45-60 %, avg 180, said last GFR around 30 with her dry box tender. Interim History: 03/2023 Follow-up visit on 03/12/2023 for type 2 diabetes, A1c in the office 7.1 , blood sugar 212. She is on Levemir 50 am and 50 qhs twice a day, NovoLog 12-16-22 units tid, meter 0-14-87%, avg 214 Interim History: 11/2022 Follow-up visit on 11/22/2022 for type 2 diabetes, A1c in the office 6.6 , blood sugar 244. She is on Levemir 50 am and 50 qhs twice a day, NovoLog 12-16-22 units tid, . GFR 26 on Interim History: 07/2022 Follow-up visit on 07/26/2022 for type 2 diabetes, A1c in the office 7.5, blood sugar 222. She is on Levemir 50 am and 50 qhs twice a day, NovoLog 12-16-22 units tid .meter 167-258, AVG 209 . GFR 28 on 06/2022 Interim History: 03/2022 Follow-up visit on 03/29/2022 for type 2 diabetes, A1c in the office 6.6, blood sugar 268. She is on Levemir 50 am and 50 qhs twice a day, NovoLog 12-18-22 units tid, had CABG in 12/2020 .meter 159-234, AVG 200 . GFR 29 on 01/2022 Interim History: 11/2021 Follow-up visit on 11/28/2021 for type 2 diabetes, A1c in the office 7.3, blood sugar 230. She is on Levemir 50 am and 50 qhs twice a day, NovoLog 10 -15-20 units tid, had CABG in 12/2020 .meter 161-241 avg 213. Interim History: 07/2021 Follow-up visit on 07/26/21 for type 2 diabetes, A1c in the office 6.4, blood sugar 241. She is on Levemir 50 am and 50 qhs twice a day, NovoLog 8 units qid, had CABG in 12/2020 .meter low 133-high 215, avg 173 Interim History: 04/2021 Follow-up visit on 04/26/21 for type 2 diabetes, A1c in the office 7.8, blood sugar 272. She is on Levemir 50 am and 50 qhs twice a day, NovoLog 8 units qid, had CABG in 12/2020 Interim History: 01/2021 Follow-up visit on 02/01/21 for type 2 diabetes, A1c in the office 7.7, blood sugar 263. She is on Levemir 28 am and 30 qhs twice a day, NovoLog 8 units qid, hasd CABG in 12/2020 Interim History: 10/2020 Follow-up visit on 10/28/20 for type 2 diabetes, A1c in the office 7.2, blood sugar 243. Meter lowest 148, highest 263, average 0.9, average 216. She is on Levemir 50 twice a day, NovoLog she use between 07/18. had covid in 08/2020 Interim History: 06/2020 Follow-up visit on 07/01/20 for type 2 diabetes, A1c in the office 7.3, blood sugar 356. Meter lowest 102, highest 354, average 0.9, average 231. She is on Levemir 40 twice a day, NovoLog she use between 07/18. She say if blood sugar less than 100 she take 10, if it is above 150 use between 12, but she did not check her blood sugar at lunch and dinner Interim History: 02/2020 Follow-up visit on 02/09/20 for type 2 diabetes, A1c in the office 7.1, blood sugar 376. Meter lowest 104, highest 233, average 1.1, average 169. She is on Levemir 40 twice a day, NovoLog she use between 05/16/12. She say if blood sugar less than 100 she take 8, if it is above 150 use between -, but she did not check her blood sugar at lunch and dinner, so I am not sure if she taking, and she say she is taking that. Interim History: 11/2019. Follow-up visit of 11/09/2019 for type 2 diabetes. A1c in the office 7.5. Meter lowest 100, highest 472 while she is on prednisone, average 1.2 and average 214. At last visit, we started her Tradjenta but she was unable to afford it and so she is still on Lantus and trying to cut back to 40 twice a day and NovoLog 10-12 every meal. She is still on levothyroxine 150 mcg daily. Interim History 08/25: Followup visit on 08/24/2019, for type 2 diabetes. A1c in the office 8.2. Blood sugars 546. Meter's lowest 157, highest 301. She is on Levemir 40 twice a day, NovoLog 8 units every meal, and not on any other medication. She says she checks mainly her blood sugars' meter, average 220. I encouraged her to check more, at least twice a day and give her more regime for NovoLog and sliding scale. Interim History 04/24: Followup visit on 04/27/2019 for type 2 diabetes. A1c in the office 6.7, blood sugar 258. Meter lowest 125, highest 220, 1.1, average 166, but mainly reading in the morning. She is on Levemir 40 twice a day. Humalog averages 8-12 units three to four times a day, and she states GFR is 30, per her dry box tender. Interim History: 08/24 Followup visit on 08/25/18 for type 2 diabetes, A1c in the office 7.2. Meter: Lowest 117, highest 225, average 125, 38 reading, mainly in the morning. She is on Lantus 40 twice a day, and NovoLog between 8 to 16 unit according to meal size, plus sliding scale 1:10 INTERIM HISTORY 04/23 Follow-up in 04/10/18 A1c in the office 6.4 blood sugars 200, meter her lowest 117, hgihest 267, average 167 she is on Levemir 40 units twice a day, NovoLog 10 units plus sliding scale 1:10 Interim history: 12/22 Follow up visit 12/25/17 for type 2 diabetes. A1c in the office 6.5, blood sugar 306 and meter lowest 119, highest 293. Average 155 and this time 293 is reading of her . Lab done in [facility] BUN 28/creatinine 1.43, GFR 36, total cholesterol 188, triglycerides 323, LDL 76, SDL 48, TSH 0.606, free T4 1.5 [0.78-2.19], albumin/creatinine 161, TPO less than 6, thyroglobulin antibody less than 1. She is on Levemir 40 units twice a day, Novolog 10-16 units every meal, levothyroxine 150 mcg daily. interim Follow-up visit in 09/25/17 for CGM interpretation FreeStyle, Average 162 estimated A1c 7.2, standard deviation, 52 mainly high between 9-12 a.m. blood glucose much better than before, she is now on Levemir 50 units in the morning 40 at bedtime, on breakfast 10, 12 lunch, 15 supper plus insulin sliding scale 1:10>150. she is on levothyroxine 150 MCG verified the dose with her SUBJECTIVE: MEDICATIONS: Current Outpatient Medications Medication Instructions alendronate (Fosamax) 70 MG tablet 1 tablet, Oral, Every 7 days, Take in the morning with a full glass of water, on an empty stomach, and do not take anything else by mouth or lie down for the next 30 min. allopurinol (Zyloprim) 100 MG tablet take 1 tablet by oral route 3 times every day Oral aspirin 81 mg, Oral, Daily atorvastatin (Lipitor) 80 MG tablet 1 tablet, Oral, Nightly betamethasone dipropionate 0.05 % cream Apply to affected areas, up to twice a day when flared, do not use one the face, groin, or underarms, 30 day supply carvedilol (Coreg) 25 MG tablet 1 tablet, Oral, 2 times daily with meals diclofenac (Voltaren) 75 MG EC tablet 1 tablet, Oral, 2 times daily, Do not crush, chew, or split. HYDROCHLOROTHIAZIDE PO hydroCHLOROthiazide hydrocortisone (Anusol-HC) 25 MG suppository insert 1 suppository by rectal route 2 times every day for 2 weeks Rectal labetalol (Normodyne) 200 MG tablet 2 tablets, Oral, 2 times daily levothyroxine (Synthroid, Levoxyl) 150 MCG tablet 2 tablets, Oral, Daily before breakfast liothyronine (Cytomel) 5 MCG tablet 1 tablet, Oral, Daily lisinopril 40 MG tablet take 1 tablet by oral route every day Oral MAGNESIUM PO Magnesium minocycline 100 MG capsule 1 capsule, Every 12 hours kzrzsdmggctn-tueu-llenpydc-folic acid (Centrum) chewable tablet 1 tablet, Oral, Daily NovoLOG FLEXPEN 10-15 Units, Subcutaneous, 3 times daily with meals, 10-12-15 according to meal size (plus sliding scale ISS #2) expect up to 80 Units total daily use PANTOPRAZOLE SODIUM PO Pantoprazole Sodium ranolazine (Ranexa) 500 MG 12 hr tablet 1 tablet, Oral, 2 times daily, Do not crush, chew, or split. ALLERGIES: Allergies Allergen Reactions Amlodipine Unknown Amoxicillin Unknown Amoxicillin-Pot Clavulanate Unknown Doxazosin Unknown Iodinated Contrast Media Other Sulfamethoxazole Unknown Trimethoprim Unknown Past Medical History: Diagnosis Date Actinic keratosis Acute arthritis Arthritis Basal cell carcinoma CAD (coronary artery disease) (CMS/HCC) Chronic kidney disease, stage III (moderate) (HCC) (CMS/HCC) Current use of insulin (CMS/HCC) Diabetes (CMS/HCC) Frozen shoulder GERD (gastroesophageal reflux disease) Gout 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CMS/HCC) HLD (hyperlipidemia) ([facility]) HTN (hypertension) ([facility]) Hypoglycemia Hypothyroidism ([facility]) Obesity with body mass index (BMI) of 30.0 to 39.9 Squamous cell skin cancer Thyroid disease ([facility]) Type 2 diabetes mellitus with other diabetic kidney complication ([facility]) Vitamin D deficiency Past Surgical History: Procedure Laterality Date APPENDECTOMY BREAST BIOPSY CATARACT EXTRACTION CHOLECYSTECTOMY HYSTERECTOMY INCISION AND DRAINAGE ABSCESS POSTERIOR CERVICALSPINE OTHER SURGICAL HISTORY reconstruction nasal wound SHOULDER ARTHROSCOPY SINUS SURGERY TOTAL SHOULDER ARTHROPLASTY W/ DISTAL CLAVICLE EXCISION REVIEW OF SYMPTOMS: 14 POINT OF SYSTEM REVIEWED AND NEGATIVE OBJECTIVE: Constitutional: Afebrile @ home; no weakness or night sweats SKIN: No change in skin color; no itching, rash or lesions; no hair loss; HEENT: No HAs or injury; no dizziness; No difficulty with vision; no eye pain, discharge or lesions; no hearing loss or difficulty; no nasal discharge, NECK: No pain, limitation of motion, lumps or swollen glands RESP: No cough, wheezing or difficulty breathing. No CP with breathing; CARDIO: No CP , SOB or fatigue, No edema, palpitations or dyspnea with exertion GI: No N/V/D or abd. pain; good appetite with no recent change. No heart burn, liver or gallbladder disease; no rectal bleeding or pain : No urinary pain , frequency or odor. MUSCULOSKELETAL: No muscle pain or cramps; no extremity weakness.No joint pain, stiffness, swelling or limitation of movement NEUROLOGY: No H/O seizures, stroke or fainting. No weakness, tremors. Hematology: No bleeding problems or excessive bruising ENDOCRINE: No increase in hunger, thirst or urination; admits compliance to medical management plan Feet: numbness tingling , ulcers or skin break No results found for: HGBA1C Lab Results Component Value Date GLU 180 07/13/2024 GLU 219 (H) 05/29/2021 GLU 160 (H) 04/26/2021 Visit Vitals Smoking Status Former ASSESSMENT AND PLAN: Assessment/Plan Diagnoses and all orders for this visit: Type 2 diabetes mellitus with hyperglycemia, with long-term 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 ([facility]) - POCT glucose manually resulted We will continue long-acting 30 units does not remember the name, short-acting 07/18/15 according to meal size Vitamin D deficiency Microalbuminuria Hyperlipemia, mixed (CMS/HCC) Primary hypertension (CMS/HCC) Insulin long-term use (CMS/HCC) 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CMS/HCC) Continue levothyroxine 150 and Cytomel 5 Encounter for dietary consultation Chronic renal disease, stage IV (CMS/HCC) Follow up in about 4 months (around 11/13/2024). documented in this encounter [facility] 05-11-2024 Note [facility] Cardiology Clinic Note Chief Complaint: Patient here for follow up [facility] discharge back in February 2024. She [...] kidney disease, Coronary artery disease, Diabetes mellitus (CMS/HCC), Hyperlipidemia, and Hypertension. Surgical History She has [...] ventricular gram/pressure Indications (more content not included)... [facility] 02-10-2024 Note [facility] Cardiology Clinic Note Chief Complaint: Patient here to re-establish care. She was recently admitted to [facility] for hypertension. Had CABG since her [...] longstanding diabetic. PAST MEDICAL HISTORY: Diabetes mellitus ([facility]) Hypertensive urgency Arthritis Dyspnea Chest pain Unstable angina ([facility]) Obesity (BMI 30-39.9) H/O four vessel coronary artery bypass graft Paroxysmal atrial fibrillation ([facility]) Atherosclerosis of [place] coronary artery of [place] heart without angina pectoris Obesity (BMI 30-39.9) [...] and left ventricular gram/pressure Indications Unstable angina ([facility]) [I20.0 (ICD-10-CM)] Conclusion Findings: 1. 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 [facility] 11-18-2023 Evaluation note Encounter Date Diagnosis [...] her to continue to work with Dr. Mayer for DM management. She he has a [...] potassium improved with dietary restriction and Lasix. [facility] Other 01-29-2024 Evaluation note* Encounter Date Diagnosis Assessment Notes Treatment Notes Treatment Clinical Notes Oct, Anemia of renal disease (ICD-10 - D63.1) Oct, CKD (chronic kidney disease) stage 4, GFR 15-29 ml/min (ICD-10 - N18.4) [facility] Other 01-09-2024 Evaluation note* Encounter Date Diagnosis [...] her to continue to work with Dr. Mayer for DM management. She he has a [...] potassium improved with dietary restriction and Lasix. [facility] Other 12-04-2023 Evaluation note* Encounter Date Diagnosis [...] 4, GFR 15-29 ml/min (ICD-10 - N18.4) [facility] Other 11-21-2023 Evaluation note* Encounter Date Diagnosis Assessment Notes Treatment Notes Treatment Clinical Notes Aug, Anemia of renal disease (ICD-10 - D63.1) Aug, CKD (chronic kidney disease) stage 4, GFR 15-29 ml/min (ICD-10 - N18.4) [facility] Other 11-09-2023 Evaluation note* Encounter Date Diagnosis [...] of kidney mass hydronephrosis or kidney stones. [facility] Other 10-26-2023 Evaluation note* Encounter Date Diagnosis [...] her to continue to work with Dr. Mayer for DM management. She he has a [...] potassium improved with dietary restriction and Lasix. [facility] Other 09-18-2023 Evaluation note* Encounter Date Diagnosis [...] her to continue to work with Dr. Mayer for DM management. She he has a [...] potassium improved with dietary restriction and Lasix. [facility] Other 08-31-2023 Evaluation note* Encounter Date Diagnosis [...] her to continue to work with Dr. Mayer for DM management. She he has a [...] potassium improved with dietary restriction and Lasix. [facility] Other 07-25-2023 Evaluation note* Encounter Date Diagnosis [...] her to continue to work with Dr. Mayer for DM management. She he has a [...] to normal with dietary restriction and Lasix. [facility] Other 07-01-2023 Evaluation note* Encounter Date Diagnosis Assessment Notes Treatment Notes Treatment Clinical Notes Apr, CKD (chronic kidney disease) stage 4, GFR 15-29 ml/min (ICD-10 - N18.4) Apr, Anemia of renal disease (ICD-10 - D63.1) [facility] Other 06-27-2023 Evaluation note* Encounter Date Diagnosis [...] her to continue to work with Dr. Mayer for DM management. She he has a [...] to normal with dietary restriction and Lasix. [facility] Other 06-01-2023 Evaluation note* Encounter Date Diagnosis [...] her to continue to work with Dr. Mayer for DM management. She he has a [...] potassium diet and provide information about it. [facility] Other 03-16-2023 Evaluation note* Encounter Date Diagnosis [...] her to continue to work with Dr. Mayer for DM management. She he has a [...] to Continue Vit D 5000 units daily [facility] Other 01-30-2023 Evaluation note* Encounter Date Diagnosis [...] her to continue to work with Dr. Mayer for DM management. She he has a [...] to Continue Vit D 5000 units daily [facility] Other 12-22-2022 Evaluation note* Encounter Date Diagnosis [...] her to continue to work with Dr. Mayer for DM management. She he has a [...] to Continue Vit D 5000 units daily [facility] Other 11-16-2022 Evaluation note* Encounter Date Diagnosis [...] her to continue to work with Dr. Mayer for DM management. She he has a [...] to Continue Vit D 5000 units daily [facility] Other 08-04-2022 Evaluation note* Encounter Date Diagnosis Assessment Notes Treatment Notes Treatment Clinical Notes May, Hypertensive chronic kidney disease with stage 1 through stage 4 chronic kidney disease, or unspecified chronic kidney disease (ICD-10 - I12.9) [facility] Other 08-02-2022 Evaluation note* Encounter Date Diagnosis [...] her to continue to work with Dr. Mayer for DM management. She he has a subnephrotic range proteinuria UPCR 1.2 g/g creatinine. I have prescribed low-dose of lisinopril 10 mg daily. May, Secondary hyperparathyroidism (ICD-10 - N25.81) MBD parameters including PTH, calcium are phosphorus are within the goal but Vit D is low. I have advised her to Continue Vit D 5000 units daily [facility] Other 07-19-2022 Evaluation note* Encounter Date Diagnosis Assessment Notes Treatment Notes Treatment Clinical Notes Apr, Hypertensive chronic kidney disease with stage 1 through stage 4 chronic kidney disease, or unspecified chronic kidney disease (ICD-10 - I12.9) [facility] Other 04-14-2022 Evaluation note* Encounter Date Diagnosis [...] her to continue to work with Dr. Mayer for DM management. She he has a subnephrotic range proteinuria UPCR 1.2 g/g creatinine. I have prescribed low-dose of lisinopril 10 mg daily. Jan, Secondary hyperparathyroidism (ICD-10 - N25.81) MBD parameters including PTH, calcium are phosphorus are within the goal but Vit D is low. I have advised her to stop Calcium and advised her to take Vit D 1000 units daily [facility] Other Evaluation noteNo [employer] Other Evaluation note* Diagnosis Atherosclerosis of [place] coronary artery of [place] heart without angina 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 Hypertensive urgency Shortness of breath Paroxysmal atrial fibrillation ([facility]) Atrial fibrillation Localized edema Edema [facility] Diagnosis Type 2 diabetes mellitus with hyperglycemia, with long-term 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 ([facility])- Primary Vitamin D deficiency Microalbuminuria Proteinuria Hyperlipemia, mixed ([facility]) Mixed hyperlipidemia Primary hypertension ([facility] [facility]) Unspecified essential hypertension Insulin long-term use ([facility]) Encounter for long-term (current) use of insulin 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[facility]) Chronic lymphocytic thyroiditis Encounter for dietary consultation Chronic renal disease, stage IV ([facility]) Chronic kidney disease, Stage IV (severe) [facility] Type Description Date [...] NOSE 10/2019 Surgical History QUAD BYPASS AT [facility] 01/01/2021 Hospitalization History ELEVATED BLOOD PRESSURE Hospitalization History SEE ABOVE Hospitalization History COVID 09/2020 [facility] Other [facility] general Narrative - Reported* Type Description Date [...] History SEE ABOVE Hospitalization History COVID 09/2020 [facility] Other [facility] - Biomolecular Determination general Narrative - Reported* Type Description Date [...] NOSE 10/2019 Surgical History QUAD BYPASS AT [facility] 01/01/2021 Hospitalization History ELEVATED BLOOD PRESSURE Hospitalization History SEE ABOVE Hospitalization History COVID 09/2020 [facility] Other Hisyaze general Narrative - ReportedNoFitBark Other Hiswbdf general Narrative - Reported* Type Description Date [...] History SEE ABOVE Hospitalization History COVID 09/2020 [facility] Other InstructionsNot on filedocumented in this encounter [facility] Summary Purpose Family History No Family History Records FoundNo Family History Records FoundNo Family History Records FoundNo Family History Records FoundNo Family History Records Found Advance Directives Latest Code Status on File Code Status Date Activated Date Inactivated Comments Full Code 12/28/2020 2:33 PM 01/03/2021 7:38 PM Additional Source Comments INFORMATION SOURCE (unrecogn ized section and content) DATE CREATED AUTHOR 04/02/2018 [facility] DATE CREATED AUTHOR AUTHOR'S ORGANIZ ATION 01/27/2023 [facility] DATE CREATED AUTHOR AUTHOR'S ORGANIZ ATION 01/18/2024 [facility] DATE CREATED AUTHOR AUTHOR'S ORGANIZ ATION 05/12/2024 [facility] DATE CREATED AUTHOR AUTHOR'S ORGANIZ ATION 07/14/2024 [facility] EPIC REASON FOR VISIT (unrecogniz ed section and content) Reason Comments Med Refill Reason Comments Diabetes Mellitus Follow-up Care Teams (unrecognized sec tion and content) Rehabilitation Medicine Physician Relationship Specialty Start Date End Date Dhruv Rubi MD [address] [place] [id number] PCP - General Family Medicine 10/20/20 Rehabilitation Medicine Physician Relationship Specialty Start Date End Date Dhruv Rubi MD [address] [place] [phone] PCP - General Family Medicine 10/22/23 Rehabilitation Medicine Physician Relationship Specialty Start Date End Date Dhruv Rubi MD [address] [place] [phone] PCP - General Family Medicine 10/22/23 FOR RECORDS PERTAINING TO PATIENTS WHO ARE [...] BE BASED ON THE PRIMARY CLINICAL RECORDS. [facility]. provides no warranty or guarantee of the accuracy or completeness of information in this document.
[2024-09-01 06:52] LABS: Hematocrit 29.8 % (36.0-48.0); Hemoglobin 9.9 g/dL (12.0-16.0); Mean Corpuscular HGB Conc 33.2 g/dL (29.9-35.2); Mean Corpuscular Hemoglobin 31.3 pg (26.7-34.0); Mean Corpuscular Volume 94.3 fL (81.0-99.0); Mean Platelet Volume 9.4 fL (9.5-13.5); Platelet Count 201 10^3/uL (150-450); Red Blood Count 3.16 10^6/uL (4.20-5.40); Red Cell Distribution Width 15.4 % (11.0-15.0); White Blood Count 6.3 10^3/uL (4.0-11.0)
[2024-09-01 07:10] LABS: Albumin Level 2.9 g/dL (3.4-5.0); Anion Gap 13.1; BUN Creatinine Ratio 24.2; Calcium 8.7 mg/dL (8.5-10.1); Carbon Dioxide 23.8 mmol/L (21.0-32.0); Chloride 103 mmol/L (98-107); Estimated GFR (African America 32 (>=60 mL/min/1.73m^2); Estimated GFR (Non-African Ame 27 (>=60 mL/min/1.73m^2); Glucose 123 mg/dL (74-106); Magnesium 1.9 mg/dL (1.8-2.4); Phosphorus 3.7 mg/dL (2.6-4.7); Potassium 3.9 mmol/L (3.5-5.1); Sodium 136 mmol/L (136-145); Uric Acid 4.2 mg/dL (2.6-6.0)
[2024-09-01 12:02] LABS: Percent Iron Saturation 29.8 %
== END 2024-09-01 06:25 | disposition home or self-care (01) ==
LOC: LAB 06:27
PROVIDERS: PCP Family Medicine; Visit Provider Internal Medicine
DX: M10.9 Gout, unspecified (principal); E11.22 Type 2 diabetes mellitus with diabetic chronic kidney disease; E78.5 Hyperlipidemia, unspecified; N25.81 Secondary hyperparathyroidism of renal origin; I12.9 Hypertensive chronic kidney disease with stage 1 through stage 4 chronic kidney disease, or unspecified chronic kidney disease; N18.4 Chronic kidney disease, stage 4 (severe)
CPT/HCPCS: 36415; 80069; 82306; 82728; 83540; 83550; 83735; 84550; 85027

== ENCOUNTER 2024-09-04 13:09 | Outpatient (OUT) | payer MEDICARE, SELFPAY ==
--- OUTSIDE RECORDS SUMMARY | 2024-09-04 13:12 | XMS_ITS | CCD ---
Author Organization [facility] Care Team Providers Care Cash Manager Name Role Phone PHYSICIAN, DEFAULT Unavailable [...] Unavailable Dhruv Rubi MD Primary Care Provider [phone] THUAN DELVALLE Attending Unavailable DHRUV RUBI Referring [...] Unavailable Dhruv Rubi MD Primary Care Provider [phone] Allergies Allergy Classification Reported Allergen(s) Allergy Type Date of Onset Reaction(s) Facility (20 sources) amLODIPine; Translations: [AMLODIPINE] Drug Allergy 03-28-20 05 Rash, Unknown [facility] (20 sources) Amoxicillin / Clavulanate Drug Allergy 11-23-19 Rash [employer] Other (20 sources) Contrast media Propensity to adverse reactions Unknown [employer] Other (2 sources) Doxazosin; Translations: [doxazosin] Drug Allergy Unknown [employer] Other (20 sources) Sulfamethoxazole / Trimethoprim Drug Allergy 11-23-19 Rash [employer] Other (20 sources) Doxazosin; Translations: [DOXAZOSIN] Drug Allergy 11-23-19 Unknown [employer] Other (9 sources) Amoxicillin / Clavulanate; Translations: [Augmentin] Drug Allergy 11-16-19 16 Unknown [facility] Repository (1 source) amLODIPine Drug Allergy 04-25-20 14 [facility] (1 source) Sulfamethoxazole / Trimethoprim Drug Allergy 03-09-20 13 [facility] (6 sources) Iodinated Contrast Media; Translations: [IODINATED CONTRAST MEDIA] Propensity to adverse reactions to drug 11-23-19 Other [facility] (2 sources) Sulfamethoxazole / Trimethoprim; Translations: [SULFAMETHOXAZOLE-T RIMETHOPRIM] Drug Allergy 08-04-20 15 [facility] (5 sources) AMOXICILLIN-POT CLAVULANATE; Translations: [AMOXICILLIN-POT CLAVULANATE] Propensity to adverse reactions to drug (disorder) 11-23-19 21 Unknown [facility] (4 sources) Sulfamethoxazole; Translations: [SULFAMETHOXAZOLE] Drug Allergy 03-12-20 23 Unknown [facility] Repository (3 sources) Amoxicillin Drug Allergy 03-12-20 [...] coronary artery bypass graft , 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 , Paroxysmal atrial [...] (LIPITOR) 80 mg tablet Indications: 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 0 Active mhplyuylsyfo-szna-wpu erals-folic acid (Centrum) chewable tablet (3 sources) [...] not crush, chew, or split.. 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] 07-13-2024 Episodic Other [...] [facility] Office Visiton 05-11-2024 Follow-up visit [id number] Garima Robin e 1945 F Date Provider Department Center 05/11/[address] [place] [address] [facility] No family history on file Level of Service:67932 [place] OFFICE/OUTPATIENT ESTABLISHED MOD MDM 30 MIN Normal [facility] Office Visiton 02-10-2024 Follow-up visit [id number] Garima Robin e 1945 Date Provider Department Center 02/10/[address] [place] [address] Hos No family history on file Level of Service:09299 [place] OFFICE/OUTPATIENT ESTABLISHED MOD MDM 30 MIN Normal [facility] HEMOGRAM AND PLATELon 2022 Hematocrit (Bld) [Volume fraction] 28.8 % Critically low 36.0-48.0 [facility] Comment on above: Performed By: #### H H #### [facility] [address] [place] [address] Dr. Ember Teague Hemoglobin (Bld) [Mass/Vol] 9.6 g/dL Critically low 12.0-16.0 [facility] Comment on above: Performed By: #### H H #### [facility] [address] [address] [address] Embre Teague MCH (RBC) [Entitic mass] 30.7 pg Normal 26.7-34.0 [facility] Comment on above: Performed By: #### H H #### [facility] [address] [place] [address] Dr. Ember Teague MCHC (RBC) [Mass/Vol] 33.3 g/dL Normal 29.9-35.2 [facility] Comment on above: Performed By: #### H H #### [facility] [address] [address] [address] Ember Teague MCV (RBC) [Entitic vol] 92.0 fL Normal 81.0-99.0 [facility] Comment on above: Performed By: #### H H #### [facility] [address] [place] [address] Dr. Ember Teague PLT 214 103/ul Normal 150-450 [facility] Comment on above: Performed By: #### H H #### [facility] [address] [address] [address] Ember Teague RBC 3.13 106/ul Critically low 4.20-5.40 [facility] Comment on above: Performed By: #### H H #### [facility] [address] [place] [address] Dr. Ember Teague WBC 7.4 103/ul Normal 4.0-11.0 [facility] Comment on above: Performed By: #### H H #### [facility] [address] [place] [address] Dr. Ember Teague MAGNESIUMon 01-22-2023 Magnesium [Mass/Vol] 1.8 mg/dL Normal 1.8-2.4 [facility] Comment on above: Performed By: #### M G, RENAL #### [facility] [address] [place] [address] Dr. Ember Teague RENAL FUNCTION PANELon 01-22 Albumin [Mass/Vol] 3.6 g/dL Normal 3.4-5.0 [facility] Comment on above: Performed By: #### M G, RENAL #### [facility] [address] [address] [address] Ember Teague Calcium [Mass/Vol] 9.7 mg/dL Normal 8.5-10.1 [facility] Comment on above: Performed By: #### M G, RENAL #### [facility] [address] [place] [address] Dr. Ember Teague Chloride [Moles/Vol] 105 mmol/L Normal 98-107 [facility] Comment on above: Performed By: #### M G, RENAL #### [facility] [address] [address] [address] Ember Teague CO2 [Moles/Vol] 22.6 mmol/L Normal 21.0-32.0 [facility] Comment on above: Performed By: #### M G, RENAL #### [facility] [address] [address] [address] Ember Teague Creatinine [Mass/Vol] 2.18 mg/dL Critically high 0.55-1.02 [facility] Comment on above: Performed By: #### M G, RENAL #### [facility] [address] [address] [address] Ember Teague EGFR-AF ANDORRAN 26 mL/min/1.73m2 Critically low >=60 [facility] Comment on above: Performed By: #### M G, RENAL #### [facility] [address] [place] [address] Dr. Ember Teague EGFR-NON AF ANDORRAN 22 mL/min/1.73m2 Critically low >=60 [facility] Comment on above: Performed By: #### M G, RENAL #### [facility] [address] [place] [address] Dr. Ember Teague Glucose [Mass/Vol] 134 mg/dL Critically high 74-106 [facility] Comment on above: Performed By: #### M G, RENAL #### [facility] [address] [place] [address] Dr. Ember Teague Phosphate [Mass/Vol] 4.6 mg/dL Normal 2.6-4.7 [facility] Comment on above: Performed By: #### M G, RENAL #### [facility] [address] [place] [address] Dr. Ember Teague Potassium [Moles/Vol] 5.1 mmol/L Normal 3.5-5.1 [facility] Comment on above: Performed By: #### M G, RENAL #### [facility] [address] [place] [address] Dr. Ember Teague Sodium [Moles/Vol] 138 mmol/L Normal 136-145 [facility] Comment on above: Performed By: #### M G, RENAL #### [facility] [address] [place], [place] [address] Dr. Ember Teague Urea nitrogen [Mass/Vol] 61.0 mg/dL Critically high 7.0-18.0 [facility] Comment on above: Performed By: #### M G, RENAL #### [facility] [address] [place], [place] [address] Dr. Ember Teague MG MAMM SCREEN 3D MAY CADon 12-17-2022 MG MAMM SCREEN 3D MAY CAD Patient: KYLAH ROBIN Exam Date: 12/17/2022 : 1945 Gender:F Ordering : DR DHRUV RUBI . Admission #: [id number] Family : Order #: [id number] CLICK HERE TO VIEW EXAM RADIOLOGY REPORT [...] lung cancer at age 61. LOCATION: [facility] BREAST COMPOSITION: Scattered areas fibroglandular density. FINDINGS: [...] Aparicio MD on 12/17/2022 at 11:59 Normal [facility] FERRITINon 12-10-2022 Ferritin [Mass/Vol] 681.0 ng/mL Critically high 8.0-252.0 [facility] Comment on above: Performed By: #### P THINT #### [facility] [address] [place] [address] Dr. Ember Teague HEMOGRAM AND PLATELon 2022 Hematocrit (Bld) [Volume fraction] 27.1 % Critically low 36.0-48.0 [facility] Comment on above: Performed By: #### C VDTBH #### [facility] [address] [place] [address] Dr. Ember Teague Hemoglobin (Bld) [Mass/Vol] 9.7 g/dL Critically low 12.0-16.0 [facility] Comment on above: Performed By: #### C VDTBH #### [facility] [address] [place] [address] Dr. Ember Teague MCH (RBC) [Entitic mass] 31.4 pg Normal 26.7-34.0 [facility] Comment on above: Performed By: #### C VDTBH #### [facility] [address] [place] [address] Dr. Ember Teague MCHC (RBC) [Mass/Vol] 35.8 g/dL Critically high 29.9-35.2 [facility] Comment on above: Performed By: #### C VDTBH #### [facility] [address] [place] [address] Dr. Ember Teague MCV (RBC) [Entitic vol] 87.7 fL Normal 81.0-99.0 [facility] Comment on above: Performed By: #### C VDTBH #### [facility] [address] [place] [address] Dr. Ember Teague PLT 218 103/ul Normal 150-450 [facility] Comment on above: Performed By: #### C VDTBH #### [facility] [address] [place] [address] Dr. Ember Teague RBC 3.09 106/ul Critically low 4.20-5.40 [facility] Comment on above: Performed By: #### C VDTBH #### [facility] [address] [place] [address] Dr. Ember Teague WBC 6.6 103/ul Normal 4.0-11.0 [facility] Comment on above: Performed By: #### C VDTBH #### [facility] [address] [place] [address] Dr. Ember Teague IRON AND TIBCon 12-10-2022 % SATURATION 30.2 % Normal [facility] Comment on above: Performed By: #### P THINT #### [facility] [address] [place] [address] Dr. Ember Teague Iron [Mass/Vol] 84.0 ug/dL Normal 50.0-170.0 [facility] Comment on above: Performed By: #### P THINT #### [facility] [address] [place] [address] Dr. Ember Teague TIBC DIRECT 278.0 ug/dL Normal 250.0-450.0 [facility] Comment on above: Performed By: #### P THINT #### [facility] [address] [place] [address] Dr. Ember Teague XR FOOT MAY MIN [...] BENI APARICIO Date: 2022-11-20 14:03 Normal [facility] HEMOGRAM AND PLATELon 2022 Hematocrit (Bld) [Volume fraction] 27.7 % Critically low 36.0-48.0 [facility] Comment on above: Performed By: #### R ENAL #### [facility] [address] [place] [address] Dr. Ember Teague Hemoglobin (Bld) [Mass/Vol] 10.0 g/dL Critically low 12.0-16.0 [facility] Comment on above: Performed By: #### R ENAL #### [facility] [address] [place] [address] Dr. Ember Teague MCH (RBC) [Entitic mass] 31.6 pg Normal 26.7-34.0 [facility] Comment on above: Performed By: #### R ENAL #### [facility] [address] [place] [address] Dr. Ember Teague MCHC (RBC) [Mass/Vol] 36.1 g/dL Critically high 29.9-35.2 [facility] Comment on above: Performed By: #### R ENAL #### [facility] [address] [place] [address] Dr. Emebr Teague MCV (RBC) [Entitic vol] 87.7 fL Normal 81.0-99.0 [facility] Comment on above: Performed By: #### R ENAL #### [facility] [address] [place] [address] Dr. Ember Teague PLT 182 103/ul Normal 150-450 [facility] Comment on above: Performed By: #### R ENAL #### [facility] [address] [place] [address] Dr. Ember Teague RBC 3.16 106/ul Critically low 4.20-5.40 [facility] Comment on above: Performed By: #### R ENAL #### [facility] [address] [place] [address] Dr. Ember Teague WBC 6.8 103/ul Normal 4.0-11.0 [facility] Comment on above: Performed By: #### R ENAL #### [facility] [address] [place] [address] Dr. Ember Teague PROF CHEM 8 (BAS METB)on Anion gap [Moles/Vol] 17.6 mmol/L Normal [facility] Comment on above: Performed By: #### C VDTBH #### [facility] [address] [address] [address] Ember Teague Calcium [Mass/Vol] 9.0 mg/dL Normal 8.5-10.1 [facility] Comment on above: Performed By: #### C VDTBH #### [facility] [address] [address] [address] Ember Teague Chloride [Moles/Vol] 104 mmol/L Normal 98-107 [facility] Comment on above: Performed By: #### C VDTBH #### [facility] [address] [address] [address] Ember Teague CO2 [Moles/Vol] 22.2 mmol/L Normal 21.0-32.0 [facility] Comment on above: Performed By: #### C VDTBH #### [facility] [address] [address] [address] Ember Teague Creatinine [Mass/Vol] 2.03 mg/dL Critically high 0.55-1.02 [facility] Comment on above: Performed By: #### C VDTBH #### [facility] [address] [address] [address] Ember Teague EGFR-AF ANDORRAN 29 mL/min/1.73m2 Critically low >=60 [facility] Comment on above: Performed By: #### C VDTBH #### [facility] [address] [address] [address] Ember Teague EGFR-NON AF ANDORRAN 24 mL/min/1.73m2 Critically low >=60 [facility] Comment on above: Performed By: #### C VDTBH #### [facility] [address] [address] [address] Ember Teague Glucose [Mass/Vol] 154 mg/dL Critically high 74-106 [facility] Comment on above: Performed By: #### C VDTBH #### [facility] [address] [address] [address] Ember Teague Potassium [Moles/Vol] 4.8 mmol/L Normal 3.5-5.1 [facility] Comment on above: Performed By: #### C VDTBH #### [facility] [address] [address] [address] Ember Teague Sodium [Moles/Vol] 139 mmol/L Normal 136-145 [facility] Comment on above: Performed By: #### C VDTBH #### [facility] [address] [address] [address] Ember Teague Urea nitrogen [Mass/Vol] 43.0 mg/dL Critically high 7.0-18.0 [facility] Comment on above: Performed By: #### C VDTBH #### [facility] [address] [address] [address] Ember Teague Urea nitrogen/Creatinine [Mass ratio] 21.2 mg/mg Normal [facility] Comment on above: Performed By: #### C VDTBH #### [facility] [address] [place] [address] Dr. Ember Teague CULTURE SPUTUMon 10-24-2022 CULTURE SPUTUM Culture Observations : Beta lactamase positive Isolate 1 Haemophilus influenzae Moderate growth of Normal [facility] Comment on above: Performed By: #### R ENAL #### [facility] [address] [place] [address] Dr. Ember Teague SPUTUM GRAM STAINon 10-24-19 23 COMMENTS Normal [facility] Comment on above: Performed By: #### R ENAL #### [facility] [address] [place] [address] Dr. Ember Teague DIPHTHEROIDS Normal [facility] Comment on above: Performed By: #### R ENAL #### [facility] [address] [place] [address] Dr. Ember Teague EPITHELIALS >25 Normal [facility] Comment on above: Performed By: #### R ENAL #### [facility] [address] [place] [address] Dr. Ember Teague FUNGAL ELEMENTS Normal [facility] Comment on above: Performed By: #### R ENAL #### [facility] [address] [place] [address] Dr. Ember Teague GRAM NEG BACILLI Normal [facility] Comment on above: Performed By: #### R ENAL #### [facility] [address] [address] [address] Ember Teague GRAM NEG DIPPLOCOCCI FEW Normal [facility] Comment on above: Performed By: #### R ENAL #### [facility] [address] [address] [address] Ember Teague GRAM POS BACILLI FEW Normal [facility] Comment on above: Performed By: #### R ENAL #### [facility] [address] [address] [address] Ember Teague GRAM POSITIVE COCCI MANY Normal [facility] Comment on above: Performed By: #### R ENAL #### [facility] [address] [place] [address] Dr. Ember Teague WBC (Bld) [#/Vol] 10*3/uL Normal [facility] Comment on above: Performed By: #### R ENAL #### [facility] [address] [place] [address] Dr. Ember Teague XR CHEST 2 Von [...] ANGELINA BRISENO Date: 2022-10-24 16:22 Normal [facility] FERRITINon 09-18-2022 Ferritin [Mass/Vol] 612.0 ng/mL Critically high 8.0-252.0 [facility] Comment on above: Performed By: #### F ERR, FETIBC #### [facility] [address] [place] [address] Dr. Ember Tegaue HEMOGRAM AND PLATELon 2021 Hematocrit (Bld) [Volume fraction] 28.1 % Critically low 36.0-48.0 [facility] Comment on above: Performed By: #### C BC #### [facility] [address] [place] [address] Dr. Ember Teague Hemoglobin (Bld) [Mass/Vol] 9.7 g/dL Critically low 12.0-16.0 [facility] Comment on above: Performed By: #### C BC #### [facility] [address] [place] [address] Dr. Ember Teague MCH (RBC) [Entitic mass] 31.3 pg Normal 26.7-34.0 [facility] Comment on above: Performed By: #### C BC #### [facility] [address] [place] [address] Dr. Ember Teague MCHC (RBC) [Mass/Vol] 34.5 g/dL Normal 29.9-35.2 [facility] Comment on above: Performed By: #### C BC #### [facility] [address] [place] [address] Dr. Ember Teague MCV (RBC) [Entitic vol] 90.6 fL Normal 81.0-99.0 [facility] Comment on above: Performed By: #### C BC #### [facility] [address] [place] [address] Dr. Ember Teague PLT 183 103/ul Normal 150-450 [facility] Comment on above: Performed By: #### C BC #### [facility] [address] [place] [address] Dr. Ember Teague RBC 3.10 106/ul Critically low 4.20-5.40 [facility] Comment on above: Performed By: #### C BC #### [facility] [address] [place] [address] Dr. Ember Teague WBC 7.2 103/ul Normal 4.0-11.0 [facility] Comment on above: Performed By: #### C BC #### [facility] [address] [place] [address] Dr. Ember Teague IRON AND TIBCon 09-18-2022 % SATURATION 36.0 % Normal [facility] Comment on above: Performed By: #### F ERR, FETIBC #### [facility] [address] [place] [address] Dr. Ember Teague Iron [Mass/Vol] 77.0 ug/dL Normal 50.0-170.0 [facility] Comment on above: Performed By: #### F ERR, FETIBC #### [facility] [address] [place] [address] Dr. Ember Teague TIBC DIRECT 214.0 ug/dL Critically low 250.0-450.0 [facility] Comment on above: Performed By: #### F ERR, FETIBC #### [facility] [address] [place] [address] Dr. Ember Teague RENAL FUNCTION PANELon 09-18 Albumin [Mass/Vol] 3.7 g/dL Normal 3.4-5.0 [facility] Comment on above: Performed By: #### R ENAL #### [facility] [address] [place] [address] Dr. Ember Teague Calcium [Mass/Vol] 9.5 mg/dL Normal 8.5-10.1 [facility] Comment on above: Performed By: #### R ENAL #### [facility] [address] [place] [address] Dr. Ember Teague Chloride [Moles/Vol] 103 mmol/L Normal 98-107 [facility] Comment on above: Performed By: #### R ENAL #### [facility] [address] [place] [address] Dr. Ember Teague CO2 [Moles/Vol] 21.1 mmol/L Normal 21.0-32.0 [facility] Comment on above: Performed By: #### R ENAL #### [facility] [address] [place] [address] Dr. Ember Teague Creatinine [Mass/Vol] 1.85 mg/dL Critically high 0.55-1.02 [facility] Comment on above: Performed By: #### R ENAL #### [facility] [address] [place], [place] [id number] Dr. Ember Teague EGFR-AF ANDORRAN 32 mL/min/1.73m2 Critically low >=60 [facility] Comment on above: Performed By: #### R ENAL #### [facility] [address] [address] [address] Ember Teague EGFR-NON AF ANDORRAN 26 mL/min/1.73m2 Critically low >=60 [facility] Comment on above: Performed By: #### R ENAL #### [facility] [address] [address] [address] Ember Teague Glucose [Mass/Vol] 183 mg/dL Critically high 74-106 T [facility] Comment on above: Performed By: #### R ENAL #### [facility] [address] [address] [address] Ember Teague Phosphate [Mass/Vol] 3.7 mg/dL Normal 2.6-4.7 [facility] Comment on above: Performed By: #### R ENAL #### [facility] [address] [address] [address] Ember Teague Potassium [Moles/Vol] 4.9 mmol/L Normal 3.5-5.1 [facility] Comment on above: Performed By: #### R ENAL #### [facility] [address] [place] [address] Dr. Ember Teague Sodium [Moles/Vol] 138 mmol/L Normal 136-145 [facility] Comment on above: Performed By: #### R ENAL #### [facility] [address] [place] [address] Dr. Ember Teague Urea nitrogen [Mass/Vol] 40.0 mg/dL Critically high 7.0-18.0 [facility] Comment on above: Performed By: #### R ENAL #### [facility] [address] [place] [address] Dr. Ember Teague CULTURE URINEon 09-15-2022 CULTURE [...] Trimethoprim/Sulfamet hoxazole <=20 S F Normal [facility] Comment on above: Performed By: #### R ENAL #### [facility] [address] [place] [address] Dr. Ember Teague BNPon 09-11-2022 Natriuretic peptide B (Bld) [Mass/Vol] 408.0 pg/mL Normal <=1,800.0 [facility] Comment on above: Performed By: #### P THINT #### [facility] [address] [place] [address] Dr. Ember Teague CBC AUTO DIFFon 09-11-2022 BASO # 0.0 103/ul Normal 0.0-0.1 [facility] Comment on above: Performed By: #### C BC #### [facility] [address] [place] [address] Dr. Ember Teague Basophils/100 WBC (Bld) 0.3 % Normal 0.2-2.0 [facility] Comment on above: Performed By: #### C BC #### [facility] [address] [place] [address] Dr. Ember Teague EO # 0.1 103/ul Normal 0.0-0.7 [facility] Comment on above: Performed By: #### C BC #### [facility] [address] [place] [address] Dr. Ember Teague Eosinophils/100 WBC (Bld) 1.9 % Normal 0.9-7.0 [facility] Comment on above: Performed By: #### C BC #### [facility] [address] [place] [address] Dr. Ember Teague Erythrocyte distribution width (RBC) [Ratio] 15.2 % Critically high 11.0-15.0 [facility] Comment on above: Performed By: #### C BC #### [facility] [address] [place] [address] Dr. Ember Teague Hematocrit (Bld) [Volume fraction] 26.6 % Critically low 36.0-48.0 [facility] Comment on above: Performed By: #### C BC #### [facility] [address] [place] [address] Dr. Ember Teague Hemoglobin (Bld) [Mass/Vol] 9.0 g/dL Critically low 12.0-16.0 [facility] Comment on above: Performed By: #### C BC #### [facility] [address] [place] [address] Dr. Ember Teague IG # 0.02 10e3/ul Normal 0.00-0.03 [facility] Comment on above: Performed By: #### C BC #### [facility] [address] [place] [address] Dr. Ember Teague IG % 0.3 % Normal 0.0-0.5 [facility] Comment on above: Performed By: #### C BC #### [facility] [address] [place] [address] Dr. Ember Teague LYMPH # 1.9 103/ul Normal 1.2-3.8 [facility] Comment on above: Performed By: #### C BC #### [facility] [address] [place] [address] Dr. Ember Teague Lymphocytes/100 WBC (Bld) 32.4 % Normal 20.5-60.0 [facility] Comment on above: Performed By: #### C BC #### [facility] [address] [place] [address] Dr. Ember Teague MANUAL DIFF REQ NO Normal [facility] Comment on above: Performed By: #### C BC #### [facility] [address] [place] [address] Dr. Ember Teague MCH (RBC) [Entitic mass] 31.1 pg Normal 26.7-34.0 [facility] Comment on above: Performed By: #### C BC #### [facility] [address] [address] [address] Ember Teague MCHC (RBC) [Mass/Vol] 33.8 g/dL Normal 29.9-35.2 [facility] Comment on above: Performed By: #### C BC #### [facility] [address] [place] [address] Dr. Ember Teague MCV (RBC) [Entitic vol] 92.0 fL Normal 81.0-99.0 [facility] Comment on above: Performed By: #### C BC #### [facility] [address] [place] [address] Dr. Ember Teague MONO # 0.6 103/ul Normal 0.3-0.8 [facility] Comment on above: Performed By: #### C BC #### [facility] [address] [place] [address] Dr. Ember Teague Monocytes/100 WBC (Bld) 10.0 % Normal 1.7-12.0 [facility] Comment on above: Performed By: #### C BC #### [facility] [address] [place] [address] Dr. Ember Teague NEUT # 3.2 103/ul Normal 1.4-6.5 [facility] Comment on above: Performed By: #### C BC #### [facility] [address] [place] [address] Dr. Ember Teague Neutrophils/100 WBC (Bld) 55.1 % Normal 43.0-75.0 [facility] Comment on above: Performed By: #### C BC #### [facility] [address] [place] [address] Dr. Ember Teague Platelet mean volume (Bld) [Entitic vol] 9.4 fL Critically low 9.5-13.5 [facility] Comment on above: Performed By: #### C BC #### [facility] [address] [place] [address] Dr. Ember Teague PLT 196 103/ul Normal 150-450 [facility] Comment on above: Performed By: #### C BC #### [facility] [address] [place] [address] Dr. Ember Teague RBC 2.89 106/ul Critically low 4.20-5.40 [facility] Comment on above: Performed By: #### C BC #### [facility] [address] [place] [address] Dr. Ember Teague WBC 5.8 103/ul Normal 4.0-11.0 [facility] Comment on above: Performed By: #### C BC #### [facility] [address] [place] [address] Dr. Ember Teague PROF 14(COMP METB)on 022 Albumin [Mass/Vol] 3.7 g/dL Normal 3.4-5.0 [facility] Comment on above: Performed By: #### P THINT #### [facility] [address] [place] [address] Dr. Ember Teague Albumin/Globulin [Mass ratio] 1.0 {ratio} Normal [facility] Comment on above: Performed By: #### P THINT #### [facility] [address] [place] [address] Dr. Ember Teague ALP [Catalytic activity/Vol] 79 U/L Normal 46-116 [facility] Comment on above: Performed By: #### P THINT #### [facility] [address] [place] [address] Dr. Ember Teague ALT [Catalytic activity/Vol] 24 U/L Normal 14-59 [facility] Comment on above: Performed By: #### P THINT #### [facility] [address] [place] [address] Dr. Ember Teague Anion gap [Moles/Vol] 12.8 mmol/L Normal [facility] Comment on above: Performed By: #### P THINT #### [facility] [address] [place] [address] Dr. Ember Teague AST [Catalytic activity/Vol] 17 U/L Normal 15-37 [facility] Comment on above: Performed By: #### P THINT #### [facility] [address] [address] [address] Ember Teague Bilirubin [Mass/Vol] 0.5 mg/dL Normal 0.2-1.0 [facility] Comment on above: Performed By: #### P THINT #### [facility] [address] [address] [address] Ember Teague Calcium [Mass/Vol] 9.4 mg/dL Normal 8.5-10.1 [facility] Comment on above: Performed By: #### P THINT #### [facility] [address] [address] [address] Ember Teague Chloride [Moles/Vol] 101 mmol/L Normal 98-107 [facility] Comment on above: Performed By: #### P THINT #### [facility] [address] [address] [address] Ember Teague CO2 [Moles/Vol] 24.3 mmol/L Normal 21.0-32.0 [facility] Comment on above: Performed By: #### P THINT #### [facility] [address] [address] [address] Ember Teague Creatinine [Mass/Vol] 2.84 mg/dL Critically high 0.55-1.02 [facility] Comment on above: Performed By: #### P THINT #### [facility] [address] [address] [address] Ember Teague EGFR-AF ANDORRAN 20 mL/min/1.73m2 Critically low >=60 [facility] Comment on above: Performed By: #### P THINT #### [facility] [address] [address] [address] Ember Teague EGFR-NON AF ANDORRAN 16 mL/min/1.73m2 Critically low >=60 [facility] Comment on above: Performed By: #### P THINT #### [facility] [address] [address] [address] Ember Teague Globulin (S) [Mass/Vol] 3.7 g/dL Normal [facility] Comment on above: Performed By: #### P THINT #### [facility] [address] [address] [address] Ember Teague Glucose [Mass/Vol] 174 mg/dL Critically high 74-106 [facility] Comment on above: Performed By: #### P THINT #### [facility] [address] [address] [address] Ember Teague Potassium [Moles/Vol] 5.1 mmol/L Normal 3.5-5.1 [facility] Comment on above: Performed By: #### P THINT #### [facility] [address] [address] [address] Ember Teague Protein [Mass/Vol] 7.4 g/dL Normal 6.4-8.2 [facility] Comment on above: Performed By: #### P THINT #### [facility] [address] [address] [address] Ember Teague Sodium [Moles/Vol] 133 mmol/L Critically low 136-145 [facility] Comment on above: Performed By: #### P THINT #### [facility] [address] [address] [address] Ember Teague Urea nitrogen [Mass/Vol] 68.0 mg/dL Critically high 7.0-18.0 [facility] Comment on above: Performed By: #### P THINT #### [facility] [address] [address] [address] Ember Teague Urea nitrogen/Creatinine [Mass ratio] 23.9 mg/mg Normal [facility] Comment on above: Performed By: #### P THINT #### [facility] [address] [address] [address] Ember Teague TROPONIN, HIGH SENSITIVITYon 09-11-2022 HSTROP 9.1 pg/mL Normal 4.0-51.3 [facility] Comment on above: Result Comment: CUT- OFF POINTS HAVE BEEN ESTABLISHED BASED ON THE FOURTH UNIVERSAL DEFINITIONS OF MYOCARDIAL INFARCTION. THE UPPER REFERENCE LIMIT (URL) OF TROPONIN, DEFINED THE 99TH PERCENTILE OF cTnI DISTRIBUTION IN A REFERENCE POPULATION, HAS BEEN CONFIRMED THE DECISION THRESHOLD FOR NH DIAGNOSIS. Performed By: #### P THINT #### [facility] [address] [place] [address] Dr. Ember Teague UA RANDOM W/MICROSCOPICon BACTERIA NONE SEEN Normal NONE SEEN [facility] Comment on above: Performed By: #### C VDTBH #### [facility] [address] [place] [address] Dr. Ember Teague Bilirubin Ql (U) Negative Normal NEGATIVE [facility] Comment on above: Performed By: #### C VDTBH #### [facility] [address] [place] [address] Dr. Ember Teague CAST NONE SEEN Normal NONE SEEN [facility] Comment on above: Performed By: #### C VDTBH #### [facility] [address] [place] [address] Dr. Ember Teague Clarity (U) CLEAR Normal CLEAR [facility] Comment on above: Performed By: #### C VDTBH #### [facility] [address] [place] [address] Dr. Ember Teague Color (U) LT. YELLOW Normal YELLOW [facility] Comment on above: Performed By: #### C VDTBH #### [facility] [address] [place] [address] Dr. Ember Teague Crystals LM Nom (Urine sed) NONE SEEN Normal NONE SEEN [facility] Comment on above: Performed By: #### C VDTBH #### [facility] [address] [place] [address] Dr. Ember Teague Epithelial cells LM Ql (Urine sed) FEW Abnormal NONE SEEN /RARE [facility] Comment on above: Performed By: #### C VDTBH #### [facility] [address] [place] [address] Dr. Ember Teague Glucose Ql (U) Negative Normal NEGATIVE [facility] Comment on above: Performed By: #### C VDTBH #### [facility] [address] [place] [address] Dr. Ember Teague Hemoglobin Ql (U) Negative Normal NEGATIVE [facility] Comment on above: Performed By: #### C VDTBH #### [facility] [address] [place] [address] Dr. Ember Teague Ketones Ql (U) Negative Normal NEGATIVE [facility] Comment on above: Performed By: #### C VDTBH #### [facility] [address] [place] [address] Dr. Ember Teague LEUKOCYTES Negative Normal NEGATIVE [facility] Comment on above: Performed By: #### C VDTBH #### [facility] [address] [place] [address] Dr. Ember Teague MUCOUS NONE SEEN Normal NONE SEEN [facility] Comment on above: Performed By: #### C VDTBH #### [facility] [address] [place] [address] Dr. Ember Teague Nitrite Ql (U) Negative Normal NEGATIVE [facility] Comment on above: Performed By: #### C VDTBH #### [facility] [address] [place] [address] Dr. Ember Teague pH (U) 5.5 [pH] Normal 5-9 [facility] Comment on above: Performed By: #### C VDTBH #### [facility] [address] [place] [address] Dr. Ember Teague RBC NONE SEEN Abnormal 0-2 [facility] Comment on above: Performed By: #### C VDTBH #### [facility] [address] [place] [address] Dr. Ember Teague SPEC GRAVITY 1.010 Normal 1.005-<=1.025 [facility] Comment on above: Performed By: #### C VDTBH #### [facility] [address] [place] [address] Dr. Ember Teague UA PROTEIN Negative Normal NEGATIVE/ TRACE [facility] Comment on above: Performed By: #### C VDTBH #### [facility] [address] [place] [address] Dr. Ember Teague Urobilinogen Qn (U) 0.2 {Esau'U}/dL Normal 0.2 - 1. 0 [facility] Comment on above: Performed By: #### C VDTBH #### [facility] [address] [place] [address] Dr. Ember Teague WBC NONE SEEN Normal NONE SEEN [facility] Comment on above: Performed By: #### C VDTBH #### [facility] [address] [place] [address] Dr. Ember Teague CBC AUTO DIFFon 08-13-2022 BASO # 0.0 103/ul Normal 0.0-0.1 [facility] Comment on above: Performed By: #### C BC #### [facility] [address] [place] [address] Dr. Ember Teague Basophils/100 WBC (Bld) 0.3 % Normal 0.2-2.0 [facility] Comment on above: Performed By: #### C BC #### [facility] [address] [place] [address] Dr. Ember Teague EO # 0.2 103/ul Normal 0.0-0.7 [facility] Comment on above: Performed By: #### C BC #### [facility] [address] [place] [address] Dr. Ember Teague Eosinophils/100 WBC (Bld) 3.7 % Normal 0.9-7.0 [facility] Comment on above: Performed By: #### C BC #### [facility] [address] [place] [address] Dr. Ember Teague Erythrocyte distribution width (RBC) [Ratio] 15.0 % Normal 11.0-15.0 [facility] Comment on above: Performed By: #### C BC #### [facility] [address] [place] [address] Dr. Ember Teague Hematocrit (Bld) [Volume fraction] 27.9 % Critically low 36.0-48.0 [facility] Comment on above: Performed By: #### C BC #### [facility] [address] [place] [address] Dr. Ember Teague Hemoglobin (Bld) [Mass/Vol] 9.7 g/dL Critically low 12.0-16.0 [facility] Comment on above: Performed By: #### C BC #### [facility] [address] [place] [address] Dr. Ember Teague IG # 0.01 10e3/ul Normal 0.00-0.03 [facility] Comment on above: Performed By: #### C BC #### [facility] [address] [place] [address] Dr. Ember Teague IG % 0.2 % Normal 0.0-0.5 [facility] Comment on above: Performed By: #### C BC #### [facility] [address] [place] [address] Dr. Ember Teague LYMPH # 1.9 103/ul Normal 1.2-3.8 [facility] Comment on above: Performed By: #### C BC #### [facility] [address] [place] [address] Dr. Ember Teague Lymphocytes/100 WBC (Bld) 32.2 % Normal 20.5-60.0 [facility] Comment on above: Performed By: #### C BC #### [facility] [address] [place] [address] Dr. Ember Teague MANUAL DIFF REQ NO Normal [facility] Comment on above: Performed By: #### C BC #### [facility] [address] [place] [address] Dr. Ember Teague MCH (RBC) [Entitic mass] 31.4 pg Normal 26.7-34.0 [facility] Comment on above: Performed By: #### C BC #### [facility] [address] [place] [address] Dr. Ember Teague MCHC (RBC) [Mass/Vol] 34.8 g/dL Normal 29.9-35.2 [facility] Comment on above: Performed By: #### C BC #### [facility] [address] [place] [address] Dr. Ember Teague MCV (RBC) [Entitic vol] 90.3 fL Normal 81.0-99.0 [facility] Comment on above: Performed By: #### C BC #### [facility] [address] [place], [place] [id number] Dr. Ember Teague MONO # 0.6 103/ul Normal 0.3-0.8 [facility] Comment on above: Performed By: #### C BC #### [facility] [address] [place] [address] Dr. Ember Teague Monocytes/100 WBC (Bld) 9.8 % Normal 1.7-12.0 [facility] Comment on above: Performed By: #### C BC #### [facility] [address] [place] [address] Dr. Ember Teague NEUT # 3.2 103/ul Normal 1.4-6.5 [facility] Comment on above: Performed By: #### C BC #### [facility] [address] [place] [address] Dr. Ember Teague Neutrophils/100 WBC (Bld) 53.8 % Normal 43.0-75.0 [facility] Comment on above: Performed By: #### C BC #### [facility] [address] [place] [address] Dr. Ember Teague Platelet mean volume (Bld) [Entitic vol] 10.0 fL Normal 9.5-13.5 [facility] Comment on above: Performed By: #### C BC #### [facility] [address] [place] [address] Dr. Ember Teague PLT 194 103/ul Normal 150-450 [facility] Comment on above: Performed By: #### C BC #### [facility] [address] [place] [address] Dr. Ember Teague RBC 3.09 106/ul Critically low 4.20-5.40 [facility] Comment on above: Performed By: #### C BC #### [facility] [address] [place] [address] Dr. Ember Teague WBC 6.0 103/ul Normal 4.0-11.0 [facility] Comment on above: Performed By: #### C BC #### [facility] [address] [place] [address] Dr. Ember Teague PTH INTACTon 06-26-2022 PTH, Intact 39 pg/mL Normal 15-65 [facility] Comment on above: Performed By: #### P THINT #### [facility] [address] [place] [address] Dr. Ember Teague CBC AUTO DIFFon 06-25-2022 BASO # 0.1 103/ul Normal 0.0-0.1 [facility] Comment on above: Performed By: #### C VDTBH #### [facility] [address] [place] [address] Dr. Ember Teague Basophils/100 WBC (Bld) 0.6 % Normal 0.2-2.0 [facility] Comment on above: Performed By: #### C VDTBH #### [facility] [address] [place] [address] Dr. Ember Teague EO # 0.2 103/ul Normal 0.0-0.7 [facility] Comment on above: Performed By: #### C VDTBH #### [facility] [address] [place] [address] Dr. Ember Teague Eosinophils/100 WBC (Bld) 3.0 % Normal 0.9-7.0 [facility] Comment on above: Performed By: #### C VDTBH #### [facility] [address] [place] [address] Dr. Ember Teague Erythrocyte distribution width (RBC) [Ratio] 14.2 % Normal 11.0-15.0 [facility] Comment on above: Performed By: #### C VDTBH #### [facility] [address] [place] [address] Dr. Ember Teague Hematocrit (Bld) [Volume fraction] 30.9 % Critically low 36.0-48.0 [facility] Comment on above: Performed By: #### C VDTBH #### [facility] [address] [place] [address] Dr. Ember Teague Hemoglobin (Bld) [Mass/Vol] 10.6 g/dL Critically low 12.0-16.0 [facility] Comment on above: Performed By: #### C VDTBH #### [facility] [address] [address] [address] Ember Teague IG # 0.04 10e3/ul Critically high 0.00-0.03 [facility] Comment on above: Performed By: #### C VDTBH #### [facility] [address] [place] [address] Dr. Ember Teague IG % 0.5 % Normal 0.0-0.5 [facility] Comment on above: Performed By: #### C VDTBH #### [facility] [address] [place] [address] Dr. Ember Teague LYMPH # 2.2 103/ul Normal 1.2-3.8 [facility] Comment on above: Performed By: #### C VDTBH #### [facility] [address] [place] [address] Dr. Ember Teague Lymphocytes/100 WBC (Bld) 27.0 % Normal 20.5-60.0 [facility] Comment on above: Performed By: #### C VDTBH #### [facility] [address] [place] [address] Dr. Ember Teague MANUAL DIFF REQ NO Normal [facility] Comment on above: Performed By: #### C VDTBH #### [facility] [address] [place] [address] Dr. Ember Teague MCH (RBC) [Entitic mass] 31.2 pg Normal 26.7-34.0 [facility] Comment on above: Performed By: #### C VDTBH #### [facility] [address] [place] [address] Dr. Ember Teague MCHC (RBC) [Mass/Vol] 34.3 g/dL Normal 29.9-35.2 [facility] Comment on above: Performed By: #### C VDTBH #### [facility] [address] [place] [address] Dr. Ember Teague MCV (RBC) [Entitic vol] 90.9 fL Normal 81.0-99.0 [facility] Comment on above: Performed By: #### C VDTB #### [facility] [address] [address] [address] Ember Teague MONO # 0.7 103/ul Normal 0.3-0.8 [facility] Comment on above: Performed By: #### C VDTBH #### [facility] [address] [address] [address] Ember Teague Monocytes/100 WBC (Bld) 9.2 % Normal 1.7-12.0 [facility] Comment on above: Performed By: #### C VDTBH #### [facility] [address] [place] [address] Dr. Ember Teague NEUT # 4.8 103/ul Normal 1.4-6.5 [facility] Comment on above: Performed By: #### C VDTBH #### [facility] [address] [place] [address] Dr. Ember Teague Neutrophils/100 WBC (Bld) 59.7 % Normal 43.0-75.0 [facility] Comment on above: Performed By: #### C VDTB #### [facility] [address] [place] [address] Dr. Ember Teague Platelet mean volume (Bld) [Entitic vol] 9.3 fL Critically low 9.5-13.5 [facility] Comment on above: Performed By: #### C VDTBH #### [facility] [address] [place] [address] Dr. Ember Teague PLT 227 103/ul Normal 150-450 [facility] Comment on above: Performed By: #### C VDTBH #### [facility] [address] [place] [address] Dr. Ember Teague RBC 3.40 106/ul Critically low 4.20-5.40 [facility] Comment on above: Performed By: #### C VDTBH #### [facility] [address] [place] [address] Dr. Ember Teague WBC 8.0 103/ul Normal 4.0-11.0 [facility] Comment on above: Performed By: #### C VDTBH #### [facility] [address] [address] [address] Ember Teague MRI LSPINE WO CONon [...] YANET HUERTA Date: 2022-06-25 08:45 Normal [facility] RENAL FUNCTION PANELon 06-25 Albumin [Mass/Vol] 3.9 g/dL Normal 3.4-5.0 [facility] Comment on above: Performed By: #### P THINT #### [facility] [address] [address] [address] Ember Teague Calcium [Mass/Vol] 9.5 mg/dL Normal 8.5-10.1 [facility] Comment on above: Performed By: #### P THINT #### [facility] [address] [address] [address] Ember Teague Chloride [Moles/Vol] 102 mmol/L Normal 98-107 [facility] Comment on above: Performed By: #### P THINT #### [facility] [address] [address] [address] Ember Teague CO2 [Moles/Vol] 23.8 mmol/L Normal 21.0-32.0 [facility] Comment on above: Performed By: #### P THINT #### [facility] [address] [address] [address] Ember Teague Creatinine [Mass/Vol] 1.75 mg/dL Critically high 0.55-1.02 [facility] Comment on above: Performed By: #### P THINT #### [facility] [address] [address] [address] Ember Teague EGFR-AF ANDORRAN 34 mL/min/1.73m2 Critically low >=60 [facility] Comment on above: Performed By: #### P THINT #### [facility] [address] [place] [address] Dr. Ember Teague EGFR-NON AF ANDORRAN 28 mL/min/1.73m2 Critically low >=60 [facility] Comment on above: Performed By: #### P THINT #### [facility] [address] [address] [address] Ember Teague Glucose [Mass/Vol] 199 mg/dL Critically high 74-106 [facility] Comment on above: Performed By: #### P THINT #### [facility] [address] [address] [address] Ember Teague Phosphate [Mass/Vol] 4.3 mg/dL Normal 2.6-4.7 [facility] Comment on above: Performed By: #### P THINT #### [facility] [address] [address] [address] Ember Teague Potassium [Moles/Vol] 4.9 mmol/L Normal 3.5-5.1 [facility] Comment on above: Performed By: #### P THINT #### [facility] [address] [address] [address] Ember Teague Sodium [Moles/Vol] 135 mmol/L Critically low 136-145 [facility] Comment on above: Performed By: #### P THINT #### [facility] [address] [place] [address] Dr. Ember Teague Urea nitrogen [Mass/Vol] 34.0 mg/dL Critically high 7.0-18.0 [facility] Comment on above: Performed By: #### P THINT #### [facility] [address] [place] [address] Dr. Ember Teague VITAMIN D 25 OHon 06-25-2022 VIT D 25-OH 40.6 ng/mL Normal [facility] Comment on above: Performed By: #### P THINT #### [facility] [address] [place] [address] Dr. Ember Teague VIT D RANGES SEE BELOW Normal [facility] Comment on above: Result Comment: <20 ng/mL Vit D deficient 20 - <30 ng/mL Vit D insufficient 30 - 100 ng/mL Vit D sufficient >100 ng/mL Potential Toxicity Performed By: #### P THINT #### [facility] [address] [place] [address] Dr. Ember Teague [facility]07 SARS-CoV-2 (COVID-19) RNA ALXEX+probe Ql (Unsp spec) Not detected Normal NOT DETECTED [facility] Comment on above: Result Comment: This test is not yet approved or cleared by the [place] FDA. When there are no FDA-approved or cleared tests available, and other criteria are met, FDA can make tests available under an emergency access mechanism called an Emergency Use Authorization (EUA). The EUA for this test is supported by the [employer] of Health and Human Service's (HHS's) declaration [...] consistent with SARS-CoV-2. Performed By: #### C [facility] #### [facility] [address] [place] [address] LSPINE WO CONon [...] YANET HUERTA Date: 2022-06-01 18:02 Normal [facility] XR LSPINE MIN 4 VIEWSon 05-07 XR [...] by: YANET HUERTA Date: 2022-05-21 15:25 Normal [facility] PTH INTACTon 05-03-2022 PTH, Intact 60 pg/mL Normal 15-65 [facility] Comment on above: Performed By: #### C VDTBH #### [facility] [address] [address] [address] Ember Teague VIT D 25-OH LABCORPon 2021 Vitamin D, 25-Hydroxy 26.1 ng/mL Critically low 30.0-100.0 [facility] Comment on above: Result Comment: Sara min D deficiency has been defined by the [place] of Medicine and an Endocrine Society practice guideline as a level of serum 25-OH vitamin D less than 20 ng/mL (1,2). The Endocrine Society went on to further define vitamin D insufficiency as a level between 21 and 29 ng/mL (2). 1. IOM ([place] of Medicine). 2010. Dietary reference intakes for calcium and D. [place]: The National Academies Press. 2. Sherice MF, Wendy NC, Huan ZHONG, et al. Evaluation, treatment, and prevention of vitamin D deficiency: an Endocrine Society clinical practice guideline. JCEM. 2010; 96(7):1911-30. Performed By: #### R ENAL #### [facility] [address] [address] [address] Ember Teague FERRITINon 05-02-2022 Ferritin [Mass/Vol] 590.0 ng/mL Critically high 8.0-252.0 [facility] Comment on above: Performed By: #### R ENAL #### [facility] [address] [place] [address] Dr. Ember Teague HEMOGRAM AND PLATELon 2021 Hematocrit (Bld) [Volume fraction] 28.4 % Critically low 36.0-48.0 [facility] Comment on above: Performed By: #### C VDTBH #### [facility] [address] [place] [address] Dr. Ember Teague Hemoglobin (Bld) [Mass/Vol] 9.6 g/dL Critically low 12.0-16.0 [facility] Comment on above: Performed By: #### C VDTBH #### [facility] [address] [place] [address] Dr. Ember Teague MCH (RBC) [Entitic mass] 31.0 pg Normal 26.7-34.0 [facility] Comment on above: Performed By: #### C VDTBH #### [facility] [address] [place] [address] Dr. Ember Teague MCHC (RBC) [Mass/Vol] 33.8 g/dL Normal 29.9-35.2 [facility] Comment on above: Performed By: #### C VDTBH #### [facility] [address] [place] [address] Dr. Ember Teague MCV (RBC) [Entitic vol] 91.6 fL Normal 81.0-99.0 [facility] Comment on above: Performed By: #### C VDTBH #### [facility] [address] [place] [address] Dr. Ember Teague PLT 189 103/ul Normal 150-450 [facility] Comment on above: Performed By: #### C VDTBH #### [facility] [address] [place] [address] Dr. Ember Teague RBC 3.10 106/ul Critically low 4.20-5.40 [facility] Comment on above: Performed By: #### C VDTBH #### [facility] [address] [place] [address] Dr. Ember Teague WBC 6.2 103/ul Normal 4.0-11.0 [facility] Comment on above: Performed By: #### C VDTBH #### [facility] [address] [place] [address] Dr. Ember Teague IRON AND TIBCon 05-02-2022 % SATURATION 34.3 % Normal [facility] Comment on above: Performed By: #### R ENAL #### [facility] [address] [place] [address] Dr. Ember Teague Iron [Mass/Vol] 69.0 ug/dL Normal 50.0-170.0 [facility] Comment on above: Performed By: #### R ENAL #### [facility] [address] [place] [address] Dr. Ember Teague TIBC DIRECT 201.0 ug/dL Critically low 250.0-450.0 [facility] Comment on above: Performed By: #### R ENAL #### [facility] [address] [place] [address] Dr. Ember Teague MAGNESIUMon 05-02-2022 Magnesium [Mass/Vol] 1.7 mg/dL Critically low 1.8-2.4 [facility] Comment on above: Performed By: #### C VDTBH #### [facility] [address] [place] [address] Dr. Ember Teague RENAL FUNCTION PANELon 05-02 Albumin [Mass/Vol] 3.6 g/dL Normal 3.4-5.0 [facility] Comment on above: Performed By: #### C VDTBH #### [facility] [address] [place] [address] Dr. Ember Teague Calcium [Mass/Vol] 9.2 mg/dL Normal 8.5-10.1 [facility] Comment on above: Performed By: #### C VDTBH #### [facility] [address] [place] [address] Dr. Ember Teague Chloride [Moles/Vol] 107 mmol/L Normal 98-107 [facility] Comment on above: Performed By: #### C VDTBH #### [facility] [address] [address] [address] Ember Teague CO2 [Moles/Vol] 21.2 mmol/L Normal 21.0-32.0 [facility] Comment on above: Performed By: #### C VDTBH #### [facility] [address] [address] [address] Ember Teague Creatinine [Mass/Vol] 1.75 mg/dL Critically high 0.55-1.02 [facility] Comment on above: Performed By: #### C VDTBH #### [facility] [address] [address] [address] Ember Teague EGFR-AF ANDORRAN 34 mL/min/1.73m2 Critically low >=60 [facility] Comment on above: Performed By: #### C VDTBH #### [facility] [address] [place] [address] Dr. Ember Teague EGFR-NON AF ANDORRAN 28 mL/min/1.73m2 Critically low >=60 [facility] Comment on above: Performed By: #### C VDTBH #### [facility] [address] [address] [address] Ember Teague Glucose [Mass/Vol] 193 mg/dL Critically high 74-106 [facility] Comment on above: Performed By: #### C VDTBH #### [facility] [address] [address] [address] Ember Teague Phosphate [Mass/Vol] 4.2 mg/dL Normal 2.6-4.7 [facility] Comment on above: Performed By: #### C VDTBH #### [facility] [address] [address] [address] Ember Teague Potassium [Moles/Vol] 5.1 mmol/L Normal 3.5-5.1 [facility] Comment on above: Performed By: #### C VDTBH #### [facility] [address] [address] [address] Ember Teague Sodium [Moles/Vol] 139 mmol/L Normal 136-145 [facility] Comment on above: Performed By: #### C VDTBH #### [facility] [address] [place] [address] Dr. Ember Teague Urea nitrogen [Mass/Vol] 34.0 mg/dL Critically high 7.0-18.0 [facility] Comment on above: Performed By: #### C VDTBH #### [facility] [address] [place] [address] Dr. Ember Teague UA RANDOM W/MICROSCOPICon BACTERIA SMALL Abnormal NONE SEEN [facility] Comment on above: Performed By: #### C VDTBH #### [facility] [address] [place] [address] Dr. Ember Teague Bilirubin Ql (U) Negative Normal NEGATIVE [facility] Comment on above: Performed By: #### C VDTBH #### [facility] [address] [place] [address] Dr. Ember Teague CAST NONE SEEN Normal NONE SEEN [facility] Comment on above: Performed By: #### C VDTBH #### [facility] [address] [place] [address] Dr. Ember Teague Clarity (U) CLEAR Normal CLEAR [facility] Comment on above: Performed By: #### C VDTBH #### [facility] [address] [place] [address] Dr. Ember Teague Color (U) LT. YELLOW Normal YELLOW [facility] Comment on above: Performed By: #### C VDTBH #### [facility] [address] [place] [address] Dr. Ember Teague Crystals LM Nom (Urine sed) NONE SEEN Normal NONE SEEN [facility] Comment on above: Performed By: #### C VDTBH #### [facility] [address] [place] [address] Dr. Ember Teague Epithelial cells LM Ql (Urine sed) MODERATE Abnormal NONE SEEN /RARE [facility] Comment on above: Performed By: #### C VDTBH #### [facility] [address] [place] [address] Dr. Ember Teague Glucose Ql (U) Negative Normal NEGATIVE [facility] Comment on above: Performed By: #### C VDTBH #### [facility] [address] [place] [address] Dr. Ember Teague Hemoglobin Ql (U) Negative Normal NEGATIVE [facility] Comment on above: Performed By: #### C VDTBH #### [facility] [address] [place] [address] Dr. Ember Teague Ketones Ql (U) Negative Normal NEGATIVE [facility] Comment on above: Performed By: #### C VDTBH #### [facility] [address] [place] [address] Dr. Ember Teague LEUKOCYTES TRACE Abnormal NEGATIVE [facility] Comment on above: Performed By: #### C VDTBH #### [facility] [address] [place] [address] Dr. Embre Teague MUCOUS NONE SEEN Normal NONE SEEN [facility] Comment on above: Performed By: #### C VDTBH #### [facility] [address] [place] [address] Dr. Ember Teague Nitrite Ql (U) Negative Normal NEGATIVE [facility] Comment on above: Performed By: #### C VDTBH #### [facility] [address] [place] [address] Dr. Ember Teague pH (U) 5.0 [pH] Normal 5-9 [facility] Comment on above: Performed By: #### C VDTBH #### [facility] [address] [place] [address] Dr. Ember Teague RBC NONE SEEN Abnormal 0-2 [facility] Comment on above: Performed By: #### C VDTBH #### [facility] [address] [place] [address] Dr. Ember Teague SPEC GRAVITY 1.015 Normal 1.005-<=1.025 [facility] Comment on above: Performed By: #### C VDTBH #### [facility] [address] [place] [address] Dr. Ember Teague UA PROTEIN TRACE Normal NEGATIVE/ TRACE [facility] Comment on above: Performed By: #### C VDTBH #### [facility] [address] [place] [address] Dr. Ember Teague Urobilinogen Qn (U) 0.2 {Esau'U}/dL Normal 0.2 - 1. 0 [facility] Comment on above: Performed By: #### C VDTBH #### [facility] [address] [place] [address] Dr. Ember Teague WBC 0-2 Abnormal NONE SEEN [facility] Comment on above: Performed By: #### C VDTBH #### [facility] [address] [place] [address] Dr. Ember Teague URIC ACID SERUMon 05-02-2022 Urate [Mass/Vol] 4.4 mg/dL Normal 2.6-6.0 [facility] Comment on above: Performed By: #### C #### [facility] [address] [place] [address] Dr. Ember Teague URINE T PROTEIN CREAT RATIOo n 05-02-2022 Protein (U) [Mass/Vol] 33.7 mg/dL Critically high <=12.0 [facility] Comment on above: Performed By: #### C VDTBH #### [facility] [address] [place] [address] Dr. Ember Teague UR PROT CREAT RAT 0.69 Normal [facility] Comment on above: Performed By: #### C VDTBH #### [facility] [address] [place] [address] Dr. Ember Teague URINE CREAT 48.93 mg/dL Normal 20.00-300.00 [facility] Comment on above: Performed By: #### C VDTBH #### [facility] [address] [place] [address] Dr. Ember Teague Vital Signs Date Time Vital Sign Value Performing Clinician Facility 11-18-2023 10:00-0500 Body height 168.91 cm Ron Martinez Other [facility] Other 11-18-2023 10:00-0500 Body mass index (BMI) [Ratio] 29.85 kg/m2 Ron Doreen Other [facility] Other 11-18-2023 10:00-0500 Body temperature 97.3 [degF] Ron Doreen Other [facility] Other 11-18-2023 10:00-0500 Body weight 85.19 kg Ron Doreen Other [facility] Other 11-18-2023 10:00-0500 Diastolic blood pressure 79 mm[Hg] Ron Doreen Other [facility] Other 11-18-2023 10:00-0500 Respiratory rate 18 /min Ron Doreen Other [facility] Other 11-18-2023 10:00-0500 SaO2% (BldA) [Mass fraction] 98 % Ron Doreen Other [facility] Other 11-18-2023 10:00-0500 Systolic blood pressure 149 mm[Hg] Ron Doreen Other [facility] Other 11-04-2023 11:00-0500 Body height 168.91 cm Ron Doreen Other [facility] Other 11-04-2023 11:00-0500 Body mass index (BMI) [Ratio] 30.17 kg/m2 Ron Doreen Other [facility] Other 11-04-2023 11:00-0500 Body temperature 97.6 [degF] Ron Doreen Other [facility] Other 11-04-2023 11:00-0500 Body weight 86.09 kg Ron Doreen Other [facility] Other 11-04-2023 11:00-0500 Diastolic blood pressure 76 mm[Hg] Ron Doreen Other [facility] Other 11-04-2023 11:00-0500 Respiratory rate 18 /min Ron Doreen Other [facility] Other 11-04-2023 11:00-0500 SaO2% (BldA) [Mass fraction] 98 % Ron Doreen Other [facility] Other 11-04-2023 11:00-0500 Systolic blood pressure 153 mm[Hg] Ron Doreen Other [facility] Other 10-15-2023 13:00-0500 Body height 168.91 cm Ron Doreen Other [facility] Other 10-15-2023 13:00-0500 Body mass index (BMI) [Ratio] 29.82 kg/m2 Ron Doreen Other [facility] Other 10-15-2023 13:00-0500 Body temperature 97.5 [degF] Ron Doreen Other [facility] Other 10-15-2023 13:00-0500 Body weight 85.1 kg Ron Doreen Other [facility] Other 10-15-2023 13:00-0500 Diastolic blood pressure 68 mm[Hg] Orn Doreen Other [facility] Other 10-15-2023 13:00-0500 Respiratory rate 18 /min Ron Doreen Other [facility] Other 10-15-2023 13:00-0500 SaO2% (BldA) [Mass fraction] 98 % Ron Doreen Other [facility] Other 10-15-2023 13:00-0500 Systolic blood pressure 113 mm[Hg] Ron Doreen Other [facility] Other 08-27-2023 09:40-0500 Body height 168.91 cm Azduc Ember Other [facility] Other 08-27-2023 09:40-0500 Body mass index (BMI) [Ratio] 30.2 kg/m2 Aziz Ember Other [facility] Other 08-27-2023 09:40-0500 Body temperature 96.7 [degF] Aziz [place] Other [facility] Other 08-27-2023 09:40-0500 Body weight 86.18 kg Aziz [place] Other [facility] Other 08-27-2023 09:40-0500 Diastolic blood pressure 72 mm[Hg] Aziz [place] Other [facility] Other 08-27-2023 09:40-0500 Respiratory rate 18 /min Aziz [place] Other [facility] Other 08-27-2023 09:40-0500 SaO2% (BldA) [Mass fraction] 98 % Mary Anne Ackerman Other [facility] Other 08-27-2023 09:40-0500 Systolic blood pressure 153 mm[Hg] Mary Anne Ackerman Other [facility] Other 08-15-2023 10:20-0500 Body height 168.91 cm Ron Doreen Other [facility] Other 08-15-2023 10:20-0500 Body mass index (BMI) [Ratio] 30.2 kg/m2 Ron Doreen Other [facility] Other 08-15-2023 10:20-0500 Body temperature 97.1 [degF] Ron Doreen Other [facility] Other 08-15-2023 10:20-0500 Body weight 86.18 kg Ron Doreen Other [facility] Other 08-15-2023 10:20-0500 Diastolic blood pressure 79 mm[Hg] Ron Doreen Other [facility] Other 08-15-2023 10:20-0500 Respiratory rate 18 /min Ron Doreen Other [facility] Other 08-15-2023 10:20-0500 SaO2% (BldA) [Mass fraction] 98 % Ron Doreen Other [facility] Other 08-15-2023 10:20-0500 Systolic blood pressure 164 mm[Hg] Ron Doreen Other [facility] Other 08-13-2023 15:40-0500 Body height 168.91 cm Ron Doreen Other [facility] Other 08-13-2023 15:40-0500 Body mass index (BMI) [Ratio] 30.24 kg/m2 Ron Doreen Other [facility] Other 08-13-2023 15:40-0500 Body temperature 97.2 [degF] Ron Doreen Other [facility] Other 08-13-2023 15:40-0500 Body weight 86.27 kg Ron Doreen Other [facility] Other 08-13-2023 15:40-0500 Diastolic blood pressure 79 mm[Hg] Ron Doreen Other [facility] Other 08-13-2023 15:40-0500 Respiratory rate 18 /min Ron Doreen Other [facility] Other 08-13-2023 15:40-0500 SaO2% (BldA) [Mass fraction] 98 % Ron Doreen Other [facility] Other 08-13-2023 15:40-0500 Systolic blood pressure 186 mm[Hg] Ron Doreen Other [facility] Other 08-01-2023 13:00-0400 Body height 168.91 cm Ron Doreen Other [facility] Other 08-01-2023 13:00-0400 Body mass index (BMI) [Ratio] 30.55 kg/m2 Ron Doreen Other [facility] Other 08-01-2023 13:00-0400 Body temperature 97.8 [degF] Ron Doreen Other [facility] Other 08-01-2023 13:00-0400 Body weight 87.18 kg Ron Doreen Other [facility] Other 08-01-2023 13:00-0400 Diastolic blood pressure 72 mm[Hg] Ron Doreen Other [facility] Other 08-01-2023 13:00-0400 Respiratory rate 18 /min Ron Doreen Other [facility] Other 08-01-2023 13:00-0400 SaO2% (BldA) [Mass fraction] 98 % Ron Doreen Other [facility] Other 08-01-2023 13:00-0400 Systolic blood pressure 160 mm[Hg] Ron Doreen Other [facility] Other 06-24-2023 11:40-0400 Body height 168.91 cm Ron Doreen Other [facility] Other 06-24-2023 11:40-0400 Body mass index (BMI) [Ratio] 29.89 kg/m2 Ron Doreen Other [facility] Other 06-24-2023 11:40-0400 Body temperature 97.3 [degF] Ron Doreen Other [facility] Other 06-24-2023 11:40-0400 Body weight 85.28 kg Ron Doreen Other [facility] Other 06-24-2023 11:40-0400 Diastolic blood pressure 75 mm[Hg] Ron Doreen Other [facility] Other 06-24-2023 11:40-0400 Respiratory rate 18 /min Ron Doreen Other [facility] Other 06-24-2023 11:40-0400 SaO2% (BldA) [Mass fraction] 99 % Ron Doreen Other [facility] Other 06-24-2023 11:40-0400 Systolic blood pressure 129 mm[Hg] Ron Doreen Other [facility] Other 06-06-2023 15:20-0400 Body height 168.91 cm Ron Doreen Other [facility] Other 06-06-2023 15:20-0400 Body mass index (BMI) [Ratio] 29.92 kg/m2 Ron Doreen Other [facility] Other 06-06-2023 15:20-0400 Body temperature 96.5 [degF] Ron Doreen Other [facility] Other 06-06-2023 15:20-0400 Body weight 85.37 kg Ron Doreen Other [facility] Other 06-06-2023 15:20-0400 Diastolic blood pressure 49 mm[Hg] Ron Doreen Other [facility] Other 06-06-2023 15:20-0400 Respiratory rate 18 /min Ron Doreen Other [facility] Other 06-06-2023 15:20-0400 SaO2% (BldA) [Mass fraction] 99 % Ron Doreen Other [facility] Other 06-06-2023 15:20-0400 Systolic blood pressure 128 mm[Hg] Ron Doreen Other [facility] Other 04-30-2023 11:40-0400 Body height 168.91 cm Ron Doreen Other [facility] Other 04-30-2023 11:40-0400 Body mass index (BMI) [Ratio] 30.52 kg/m2 Ron Doreen Other [facility] Other 04-30-2023 11:40-0400 Body temperature 96.9 [degF] Ron Doreen Other [facility] Other 04-30-2023 11:40-0400 Body weight 87.09 kg Ron Doreen Other [facility] Other 04-30-2023 11:40-0400 Diastolic blood pressure 80 mm[Hg] Ron Doreen Other [facility] Other 04-30-2023 11:40-0400 Respiratory rate 18 /min Ron Doreen Other [facility] Other 04-30-2023 11:40-0400 SaO2% (BldA) [Mass fraction] 98 % Ron Doreen Other [facility] Other 04-30-2023 11:40-0400 Systolic blood pressure 150 mm[Hg] Ron Doreen Other [facility] Other 04-06-2023 09:00-0400 Body height 168.91 cm Ron Doreen Other [facility] Other 04-06-2023 09:00-0400 Body mass index (BMI) [Ratio] 30.36 kg/m2 Ron Doreen Other [facility] Other 04-06-2023 09:00-0400 Body weight 86.64 kg Ron Doreen Other [facility] Other 04-06-2023 09:00-0400 Diastolic blood pressure 54 mm[Hg] Ron Doreen Other [facility] Other 04-06-2023 09:00-0400 Respiratory rate 18 /min Ron Doreen Other [facility] Other 04-06-2023 09:00-0400 SaO2% (BldA) [Mass fraction] 98 % Ron Doreen Other [facility] Other 04-06-2023 09:00-0400 Systolic blood pressure 144 mm[Hg] Ron Doreen Other [facility] Other 04-02-2023 14:40-0400 Body height 168.91 cm Ron Doreen Other [facility] Other 04-02-2023 14:40-0400 Body mass index (BMI) [Ratio] 30.55 kg/m2 Ron Doreen Other [facility] Other 04-02-2023 14:40-0400 Body temperature 97 [degF] Ron Doreen Other [facility] Other 04-02-2023 14:40-0400 Body weight 87.18 kg Ron Doreen Other [facility] Other 04-02-2023 14:40-0400 Diastolic blood pressure 76 mm[Hg] Ron Doreen Other [facility] Other 04-02-2023 14:40-0400 Respiratory rate 18 /min Ron Doreen Other [facility] Other 04-02-2023 14:40-0400 SaO2% (BldA) [Mass fraction] 98 % Ron Doreen Other [facility] Other 04-02-2023 14:40-0400 Systolic blood pressure 183 mm[Hg] Ron Doreen Other [facility] Other 03-07-2023 09:20-0400 Body height 168.91 cm Ron Doreen Other [facility] Other 03-07-2023 09:20-0400 Body mass index (BMI) [Ratio] 30.52 kg/m2 Ron Doreen Other [facility] Other 03-07-2023 09:20-0400 Body temperature 97.1 [degF] Ron Doreen Other [facility] Other 03-07-2023 09:20-0400 Body weight 87.09 kg Ron Doreen Other [facility] Other 03-07-2023 09:20-0400 Diastolic blood pressure 72 mm[Hg] Ron Doreen Other [facility] Other 03-07-2023 09:20-0400 Respiratory rate 18 /min Ron Doreen Other [facility] Other 03-07-2023 09:20-0400 SaO2% (BldA) [Mass fraction] 97 % Ron Doreen Other [facility] Other 03-07-2023 09:20-0400 Systolic blood pressure 130 mm[Hg] Ron Doreen Other [facility] Other 12-20-2022 13:20-0400 Body height 168.91 cm Ron Doreen Other [facility] Other 12-20-2022 13:20-0400 Body mass index (BMI) [Ratio] 30.68 kg/m2 Ron Doreen Other [facility] Other 12-20-2022 13:20-0400 Body temperature 97.1 [degF] Ron Doreen Other [facility] Other 12-20-2022 13:20-0400 Body weight 87.54 kg Ron Doreen Other [facility] Other 12-20-2022 13:20-0400 Diastolic blood pressure 72 mm[Hg] Ron Doreen Other [facility] Other 12-20-2022 13:20-0400 Respiratory rate 18 /min Ron Doreen Other [facility] Other 12-20-2022 13:20-0400 SaO2% (BldA) [Mass fraction] 99 % Ron Doreen Other [facility] Other 12-20-2022 13:20-0400 Systolic blood pressure 139 mm[Hg] Ron Doreen Other [facility] Other 11-05-2022 14:00-0500 Body height 168.91 cm Ron Doreen Other [facility] Other 11-05-2022 14:00-0500 Body mass index (BMI) [Ratio] 30.59 kg/m2 Ron Doreen Other [facility] Other 11-05-2022 14:00-0500 Body temperature 96.8 [degF] Ron Doreen Other [facility] Other 11-05-2022 14:00-0500 Body weight 87.27 kg Ron Doreen Other [facility] Other 11-05-2022 14:00-0500 Diastolic blood pressure 72 mm[Hg] Orn Doreen Other [facility] Other 11-05-2022 14:00-0500 Respiratory rate 18 /min Ron Doreen Other [facility] Other 11-05-2022 14:00-0500 SaO2% (BldA) [Mass fraction] 98 % Ron Doreen Other [facility] Other 11-05-2022 14:00-0500 Systolic blood pressure 157 mm[Hg] Orn Doreen Other [facility] Other 09-27-2022 16:00-0500 Body height 168.91 cm Jana Monson Other [facility] Other 09-27-2022 16:00-0500 Body mass index (BMI) [Ratio] 30.55 kg/m2 Jana Monson Other [facility] Other 09-27-2022 16:00-0500 Body temperature 96.8 [degF] Jana De La Rosamiller Other [facility] Other 09-27-2022 16:00-0500 Body weight 87.18 kg Jana Monson Other [facility] Other 09-27-2022 16:00-0500 Diastolic blood pressure 73 mm[Hg] Jana Monson Other [facility] Other 09-27-2022 16:00-0500 Respiratory rate 18 /min Jana Monson Other [facility] Other 09-27-2022 16:00-0500 SaO2% (BldA) [Mass fraction] 98 % Jana Monson Other [facility] Other 09-27-2022 16:00-0500 Systolic blood pressure 159 mm[Hg] Jana De La Rosamiller Other [facility] Other 08-22-2022 12:00-0500 Body height 168.91 cm Ron Doreen Other [facility] Other 08-22-2022 12:00-0500 Body mass index (BMI) [Ratio] 30.65 kg/m2 Ron Doreen Other [facility] Other 08-22-2022 12:00-0500 Body temperature 96.9 [degF] Ron Doreen Other [facility] Other 08-22-2022 12:00-0500 Body weight 87.45 kg Ron Doreen Other [facility] Other 08-22-2022 12:00-0500 Diastolic blood pressure 75 mm[Hg] Ron Doreen Other [facility] Other 08-22-2022 12:00-0500 Respiratory rate 18 /min Ron Doreen Other [facility] Other 08-22-2022 12:00-0500 SaO2% (BldA) [Mass fraction] 96 % Ron Doreen Other [facility] Other 08-22-2022 12:00-0500 Systolic blood pressure 121 mm[Hg] Ron Doreen Other [facility] Other 05-08-2022 10:20-0400 Body height 168.91 cm Ron Doreen Other [facility] Other 05-08-2022 10:20-0400 Body mass index (BMI) [Ratio] 31.54 kg/m2 Ron Doreen Other [employer] Other 05-08-2022 10:20-0400 Body temperature 97.6 [degF] Rno Doreen Other [employer] Other 05-08-2022 10:20-0400 Body weight 89.99 kg Ron Doreen Other [employer] Other 05-08-2022 10:20-0400 Diastolic blood pressure 68 mm[Hg] Ron Doreen Other [employer] Other 05-08-2022 10:20-0400 Respiratory rate 18 /min Ron Doreen Other [employer] Other 05-08-2022 10:20-0400 SaO2% (BldA) [Mass fraction] 98 % Ron Doreen Other [employer] Other 05-08-2022 10:20-0400 Systolic blood pressure 131 mm[Hg] Ron Doreen Other [employer] Other 01-18-2022 10:20-0400 Body height 168.91 cm Ron Doreen Other [employer] Other 01-18-2022 10:20-0400 Body mass index (BMI) [Ratio] 31 kg/m2 Ron Doreen Other [employer] Other 01-18-2022 10:20-0400 Body temperature 96.4 [degF] Ron Doreen Other [employer] Other 01-18-2022 10:20-0400 Body weight 88.45 kg Ron Doreen Other [employer] Other 01-18-2022 10:20-0400 Diastolic blood pressure 74 mm[Hg] Ron Doreen Other [employer] Other 01-18-2022 10:20-0400 Respiratory rate 18 /min Ron Doreen Other [employer] Other 01-18-2022 10:20-0400 SaO2% (BldA) [Mass fraction] 97 % Ron Doreen Other [employer] Other 01-18-2022 10:20-0400 Systolic blood pressure 170 mm[Hg] Ron Doreen Other [employer] Other Encounters Encounter Date Encounter Type Care Provider Facility Start: 07-13-2024 End: 07-13-2024 Bamboo flowsheet Lorraine Mayer MD Work Phone: [facility] Start: 07-13-2024 End: 07-13-2024 [employer] flowsheet Lorraine Mayer MD Work Phone: [facility] Start: 07-13-2024 End: 07-13-2024 Office outpatient visit 25 minutes Lorraine Mayer MD Work Phone: [facility] Comment on above: Type 2 [...] Not Available Start: 05-11-2024 End: 05-11-2024 ambulatory [facility] Start: 04-21-2024 End: 04-21-2024 ambulatory LAVONNE A PETITTI Not Available Start: 04-16-2024 End: 04-16-2024 ambulatory GA Moreno LAI Not Available Start: 03-16-2024 End: 03-16-2024 ambulatory LAVONNE A PETITTI Not Available Start: 02-10-2024 End: 02-10-2024 ambulatory [facility] Start: 01-17-2024 End: 01-17-2024 ambulatory THUAN DELVALLE [facility] Start: 01-16-2024 End: 01-16-2024 ambulatory GA H CHERIE Not Available Start: 12-21-2023 Refill Luis dominique PA-C Work Phone: [facility] Comment on above: Med Refill Start: 11-28-2023 End: 11-28-2023 ambulatory LAVONNE A PETITTI Not Available Start: 11-18-2023 End: 11-18-2023 ambulatory Ron Doreen Other [employer] Other Start: 11-18-2023 Office outpatient vi sit 15 minutes Ron Doreen [facility] Start: 11-05-2023 End: 11-05-2023 ambulatory GA LAI Not Available Start: 11-04-2023 (INJECTION) INJECTION Ron Doreen [facility] Start: 11-04-2023 End: 11-04-2023 ambulatory Ron Doreen Other [employer] Other Start: 10-22-2023 End: 10-22-2023 ambulatory GA Moreno LAI Not Available Start: 10-15-2023 End: 10-15-2023 ambulatory Ron Doreen Other [employer] Other Start: 10-15-2023 Office outpatient vi sit 15 minutes Ron Doreen [facility] Start: 10-08-2023 End: 10-08-2023 ambulatory Aziz Bakhous Other [employer] Other Start: 10-08-2023 Telephone encounter Aziz Bakhous [facility] Start: 09-15-2023 End: 09-15-2023 ambulatory Ron Doreen Other [employer] Other Start: 09-15-2023 Telephone encounter Ron Doreen [facility] Start: 09-09-2023 End: 09-09-2023 ambulatory Ron Doreen Other [employer] Other Start: 09-09-2023 Telephone encounter Ron Doreen [facility] Start: 08-27-2023 (INJECTION) INJECTION Aziz Bakhous [facility] Start: 08-27-2023 End: 08-27-2023 ambulatory Aziz Bakhous Other [employer] Other Start: 08-15-2023 (INJECTION) INJECTION Ron Doreen [facility] Start: 08-15-2023 End: 08-15-2023 ambulatory Ron Doreen Other [employer] Other Start: 08-13-2023 (INJECTION) INJECTION [facility] Doreen [facility] Start: 08-13-2023 End: 08-13-2023 ambulatory Ron Doreen Other [employer] Other Start: 08-01-2023 End: 08-01-2023 ambulatory Ron Doreen Other [employer] Other Start: 08-01-2023 Office outpatient vi sit 15 minutes Ron Doreen [facility] Start: 06-24-2023 End: 06-24-2023 ambulatory Ron Doreen Other [employer] Other Start: 06-24-2023 Office outpatient vi sit 10 minutes Ron Doreen [facility] Start: 06-06-2023 End: 06-06-2023 ambulatory Ron Doreen Other [employer] Other Start: 06-06-2023 Office outpatient vi sit 15 minutes Ron Doreen [facility]iel Start: 04-30-2023 End: 04-30-2023 ambulatory Ron Doreen Other [employer] Other Start: 04-30-2023 Office outpatient vi sit 15 minutes Ron Doreen [facility] Start: 04-06-2023 (INJECTION) INJECTION Ron Doreen [facility] Start: 04-06-2023 End: 04-06-2023 ambulatory Ron Doreen Other [employer] Other Start: 04-06-2023 Telephone encounter Ron Doreen [facility] Start: 04-02-2023 End: 04-02-2023 ambulatory Ron Doreen Other [employer] Other Start: 04-02-2023 Office outpatient vi sit 15 minutes Ron Doreen [facility] Start: 04-02-2023 Telephone encounter Ron Doreen [facility] Start: 03-07-2023 End: 03-07-2023 ambulatory Ron Doreen Other [employer] Other Start: 03-07-2023 Office outpatient vi sit 15 minutes Ron Doreen [facility] Start: 01-22-2023 End: 01-23-2023 ambulatory RON DOREEN Facility:[facility] Start: 12-20-2022 End: 12-20-2022 ambulatory Ron Doreen Other [employer] Other Start: 12-20-2022 Office outpatient vi sit 15 minutes Ron Doreen [facility] Start: 12-17-2022 End: 12-18-[address] DHRUV RUBI . Facility:[facility] Start: 12-10-2022 End: 12-11-2022 ambulatory RON DOREEN Facility:[facility] Start: 11-20-2022 End: 11-21-[address] BENI APARICIO Facility:[facility] Start: 11-05-2022 End: 11-05-2022 ambulatory Ron Doreen Other [employer] Other Start: 11-05-2022 Office outpatient vi sit 15 minutes Ron Doreen [facility] Start: 10-29-2022 End: 10-30-[address] JANA MONSON Facility:[facility] Start: 10-24-2022 End: 10-24-[address] LILLIAN ACOSTA . Facility:[facility] Start: 10-24-2022 End: 10-25-[address] DHRUV RUBI . Facility:[facility] Start: 09-27-2022 End: 09-27-2022 ambulatory Jana Monson Other [employer] Other Start: 09-27-2022 Office outpatient vi sit 15 minutes Jana Monson [facility] Start: 09-18-2022 End: 09-19-2022 ambulatory RON DOREEN Facility:[facility] Start: 09-11-2022 End: 09-11-[address] DHRUV RUBI . Facility:[facility] Start: 08-22-2022 End: 08-22-2022 ambulatory Ron Doreen Other [employer] Other Start: 08-22-2022 Office outpatient vi sit 15 minutes Ron Doreen [facility] Start: 08-13-2022 End: 08-14-2022 ambulatory RON DOREEN Facility:[facility] Start: 06-25-2022 End: 06-26-[address] DHRUV RUBI . Facility:[facility] Start: 06-18-2022 End: 06-18-[address] DHRUV RUBI . Facility:[facility] Start: 06-01-2022 End: 06-02-[address] YANET HUERTA Facility:[facility] Start: 05-28-2022 End: 05-28-2022 ambulatory Ron Doreen Other [employer] Other Start: 05-28-2022 Telephone encounter Ron Doreen [facility] Start: 05-21-2022 End: 05-22-[address] DHRUV RUBI . Facility:[facility] Start: 05-16-2022 End: 05-16-2022 ambulatory Ron Doreen Other [employer] Other Start: 05-16-2022 Telephone encounter Ron Doreen [facility] Start: 05-10-2022 End: 05-10-2022 ambulatory Ron Doreen Other [employer] Other Start: 05-10-2022 Telephone encounter Ron Doreen [facility] Start: 05-08-2022 End: 05-08-2022 ambulatory Ron Doreen Other [employer] Other Start: 05-08-2022 Office outpatient vi sit 25 minutes Ron Doreen [facility] Start: 05-02-2022 End: 05-03-2022 ambulatory RON DOREEN Facility: Start: 04-24-2022 End: 04-24-2022 ambulatory Mary Anne Bakhous Other [employer] Other Start: 04-24-2022 Telephone encounter Aziz Tyron [facility] Start: 01-18-2022 End: 01-18-2022 ambulatory Ron Doreen Other [employer] Other Start: 01-18-2022 Office outpatient vi sit 25 minutes Ron Doreen [facility] Start: 05-21-2017 End: 05-22-2017 Ambulatory DEFAULT PHYSICIAN Facility:[facility] Procedures Date Procedure Procedure [...] DERM [address] [place] [address] Lavonne Longoria MD [address] [place] [address] [facility] Start: 11-16-2024 End: 11-16-2024 Patient encounter procedure 11/16/2024 9:50 AM EST Office Visit [facility] [address] [place] [address] Lorraine Mayer MD [address] [place] [address] [facility] Start: 09-28-2024 End: 09-28-2024 Patient encounter procedure 09/28/2024 11:30 AM EST Procedure Visit [facility] [address] [place] [id number] Ga Lai DPM [address] [place] [address] [facility] Start: 07-13-2024 End: 07-13-2024 Patient encounter procedure 07/13/2024 9:20 AM EDT Office Visit [facility] [address] [place] [address] Lorraine Mayer MD [address] [place] [address] Type 2 diabetes mellitus with hyperglycemia, with long-term 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 ([facility]) [facility] Comment on above: Type 2 diabetes diony itus with hyperglycemia, with long-term 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 ([facility]) Start: 06-07-2024 Influenza vaccination Influenza Vacc ine (#1) [facility] Start: 03-19-2024 Adult BMI Screening Adult BMI Screen ing [facility] Start: 03-19-2024 Tobacco Screening Tobacco Screening [facility] Start: 06-07-2023 COVID-19 Vaccine ( season) COVID-19 Vaccine ( season) [facility] Start: 06-07-2023 Influenza vaccination Influenza Vacc ine [facility] Start: 12-28-2021 Depression Screening Depression Scre ening [facility] Start: 2009 Fall Risk Screening Fall Risk Screen ing [facility] Start: 1994 Administration of varicella zoster vaccine Zoster (Shingles) Vaccine (1 of 2) [facility] Start: 12-15-1963 DTaP,Tdap and Td Vaccines (1 - Tdap) DTaP,Tdap and Td Vaccines (1 - Tdap) [facility] Start: 1962 Adult BMI Follow Up Plan Adult BMI Follow Up Plan [facility] Start: 1944 Medicare Annual Well ness Visit Medicare Annual Wellness Visit [facility] Immunizations Immunization Date Immunization Notes Care Provider Fa cility 07-10-2022 unknown vaccine or immune globulin Lorraine Mayer MD Work Phone: [facility] 07-20-2021 unknown vaccine or immune globulin Lorraine Mayer MD Work Phone: [facility] 07-18-2020 Seasonal trivalent influenza vaccine, adjuvanted, preservative free Luis Kb PA-C Work Phone: [facility] 07-18-2020 influenza virus vacc ine, unspecified formulation Luis Kb PA-C Work Phone: [facility] 07-22-2019 Seasonal trivalent influenza vaccine, adjuvanted, preservative free Luis Kb PA-C Work Phone: [facility] 07-20-2019 influenza, injectabl e, quadrivalent, preservative free Lorraine Mayer MD Work Phone: [facility] 07-14-2018 Seasonal trivalent influenza vaccine, adjuvanted, preservative free Luis Kb PA-C Work Phone: [facility] 07-15-2017 pneumococcal conjuga te vaccine, 13 valent Luis Kb PA-C Work Phone: [facility] 07-08-2017 influenza, high dose seasonal, preservative-free Luis Kb PA-C Work Phone: [facility] 07-25-2016 influenza, high dose seasonal, preservative-free Luis Kb PA-C Work Phone: [facility] 07-11-2015 influenza, high dose seasonal, preservative-free Luis Kb PA-C Work Phone: [facility] 07-16-2014 influenza, seasonal, injectable Luis Kb PA-C Work Phone: [facility] 07-10-2013 influenza, seasonal, injectable Luis [facility]-C [facility] 08-08-2012 influenza virus vacc ine, unspecified formulation Luis Kb PA-C [facility] 08-08-2012 pneumococcal polysaccharide vaccine, 23 valent Luis Kb PA-C Work Phone: [facility] 07-11-2011 influenza virus vacc ine, unspecified formulation Luis Kb PA-C Work Phone: [facility] [employer] 08-15-2010 influenza virus vacc ine, unspecified formulation Luis Kb PA-C Work Phone: [facility] 07-26-2009 influenza virus vacc ine, unspecified formulation Luis Kb PA-C Work Phone: [facility] [employer] 08-04-2008 influenza virus vacc ine, unspecified formulation Luis Kb PA-C Work Phone: [facility] [employer] 08-13-2007 influenza virus vacc ine, unspecified formulation Luis Kb PA-C Work Phone: [facility] 08-11-2004 influenza virus vacc ine, unspecified formulation Luis Kb PA-C Work Phone: [facility] [employer] 08-09-2003 influenza virus vacc ine, unspecified formulation Luis Kb PA-C Work Phone: [facility] 08-09-2003 pneumococcal polysaccharide vaccine, 23 valent Luis Kb PA-C Work Phone: [facility] [employer] [facility] Payers Date Payer Category Payer Medicare [id number] 1959 Medicare 1966 2. [id number] 1944 Unknown [id number] 2.16.84 0.1.003073.3.579.2.593 1944 Unknown [id number] 2.16.84 0.1.923751.3.579.2.593 1944 Unknown [id number] 2.16.84 0.1.078373.3.579.2.593 1944 Unknown [id number] 2.16.84 0.1.298549.3.579.2.593 1944 Unknown [id number] 2.16.84 0.1.381169.3.579.2.593 1944 Unknown [id number] 2.16.84 0.1.245616.3.579.2.593 1944 Unknown [id number] 2.16.84 0.1.284008.3.579.2.593 1944 Unknown [id number] 2.16.84 0.1.471937.3.579.2.593 1944 Unknown [id number] 2.16.84 0.1.124547.3.579.2.593 1944 Unknown [id number] 2.16.84 0.1.806367.3.579.2.593 1944 Unknown [id number] 2.16.84 0.1.992790.3.579.2.593 1944 Unknown [id number] 2.16.84 0.1.555806.3.579.2.593 1944 Unknown [id number] 2.16.84 0.1.363327.3.579.2.593 1944 Unknown [id number] 2.16.84 0.1.360571.3.579.2.593 1944 Unknown [id number] 2.16.84 0.1.193453.3.579.2.593 1944 Unknown [id number] 2.16.84 0.1.786973.3.579.2.593 1944 Unknown [id number] 2.16.8 40.1.965680.3.579.2.1286 1944 Unknown [id number] 2.16.84 0.1.707467.3.579.2.1259 1944 Unknown [id number] 2.16.84 0.1.666613.3.579.2.1259 1944 Unknown [id number] 2.16.84 0.1.076932.3.579.2.1259 1944 Unknown [id number] 2.16.84 0.1.763320.3.579.2.9 1944 Unknown [id number] 2.16.84 0.1.312030.3.579.2.125 1944 Unknown [id number] 2.16.84 0.1.623062.3.579.2.9 1944 Unknown [id number] 2.16.84 0.1.655099.3.579.2.1258 1944 Unknown [id number] 2.16.84 0.1.390142.3.579.2.125 1944 Unknown [id number] 2.16.84 0.1.731518.3.579.2.1258 1944 Unknown [id number] 2.16.84 0.1.715615.3.579.2.1259 1944 Unknown [id number] 2.16.84 0.1.275058.3.579.2.1259 Unknown Social History Date Type Detail Facility Unknown if ever smoked [employer] Other Start: 12-28-2020 End: 06-25-2024 Sex Assigned At [employer] Other Start: 09-20-2022 End: 03-14-2023 Tobacco smoking status KYIS Ex-smoker [facility] End: 10-07-1969 History of tobacco use Current smoker [facility] End: 10-07-1969 History of tobacco use Cigarette Smoker [facility] Start: 09-20-2022 End: 03-14-2023 Tobacco use and exposure Smokeless tobacco non-user [facility] Start: 03-19-2023 Alcohol intake Ex-drinker (finding) [facility] [employer] [facility] [employer] Start: 12-28-2020 End: 06-25-2024 History of Social function [facility] Do you belong to any clubs or organizations such as jain groups, unions, fraternal or athletic groups, or school groups? No [facility] Are you now , , , , never or living with a partner? [facility] How hard is it for y ou to pay for the very basics like food, housing, medical care, and heating Not hard at all [facility] Do you feel stress - tense, restless, nervous, or anxious, or unable to sleep at night because your mind is troubled all the time - these days [OSQ] Not at all [facility] [employer] [facility] Start: 1945 Sex Assigned At Not on file [facility] [employer] Start: 06-25-2024 Alcoholic beverage intake Not Asked [facility] Start: 10-21-2023 Alcohol Comment caffeine intake: 1-2 cups per day [facility] Healthcare Goals Date Patient Goal Desired [...] said last GFR around 30 with her production cell leader. Interim History: 03/2023 Follow-up visit on 03/12/2023 [...] she states GFR is 30, per her production cell leader. Interim History: 08/24 Followup visit on 08/25/18 [...] reading of her . Lab done in [facility] BUN 28/creatinine 1.43, GFR 36, total cholesterol [...] MG capsule 1 capsule, Every 12 hours wwfefdexqthw-gxgx-anooznsd-folic acid (Centrum) chewable tablet 1 tablet, Oral, [...] disease) Gout 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CMS/HCC) HLD (hyperlipidemia) ([facility]) HTN (hypertension) ([facility]) Hypoglycemia Hypothyroidism ([facility]) Obesity with body mass index (BMI) of 30.0 to 39.9 Squamous cell skin cancer Thyroid disease ([facility]) Type 2 diabetes mellitus with other diabetic kidney complication ([facility]) Vitamin D deficiency Past Surgical History: Procedure [...] hyperglycemia, with long-term 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 ([facility] - POCT glucose manually resulted We will [...] months (around 11/13/2024). documented in this encounter [facility] 05-11-2024 Note [facility] Cardiology Clinic Note Chief Complaint: Patient here for follow up [facility] discharge back in February 2024. She [...] ventricular gram/pressure Indications (more content not included)... [facility] 02-10-2024 Note [facility] Cardiology Clinic Note Chief Complaint: Patient here to re-establish care. She was recently admitted to [facility] for hypertension. Had CABG since her [...] Diabetes mellitus ([facility]) Hypertensive urgency Arthritis Dyspnea Chest pain Unstable angina ([facility]) Obesity (BMI 30-39.9) H/O four vessel coronary artery bypass graft Paroxysmal atrial fibrillation ([facility]) 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 Obesity (BMI 30-39.9) [...] and left ventricular gram/pressure Indications Unstable angina ([facility]) [I20.0 (ICD-10-CM)] Conclusion Findings: 1. Severe ostial [...] office She is to follow-up with her production cell leader given her chronic kidney disease Return to clinic in 3 months or sooner should problems arise Carlie Catherine MD (more content not included)... [facility] 11-18-2023 Evaluation note Encounter Date [...] potassium improved with dietary restriction and Lasix. [employer] Other 01-29-2024 Evaluation note* Encounter Date Diagnosis Assessment Notes Treatment Notes Treatment Clinical Notes Oct, Anemia of renal disease (ICD-10 - D63.1) Oct, CKD (chronic kidney disease) stage 4, GFR 15-29 ml/min (ICD-10 - N18.4) [employer] Other 01-09-2024 Evaluation note* Encounter Date Diagnosis [...] potassium improved with dietary restriction and Lasix. [employer] Other 12-04-2023 Evaluation note* Encounter Date Diagnosis [...] 4, GFR 15-29 ml/min (ICD-10 - N18.4) [employer] Other 11-21-2023 Evaluation note* Encounter Date Diagnosis Assessment Notes Treatment Notes Treatment Clinical Notes Aug, Anemia of renal disease (ICD-10 - D63.1) Aug, CKD (chronic kidney disease) stage 4, GFR 15-29 ml/min (ICD-10 - N18.4) [employer] Other 11-09-2023 Evaluation note* Encounter Date Diagnosis [...] of kidney mass hydronephrosis or kidney stones. [employer] Other 10-26-2023 Evaluation note* Encounter Date Diagnosis [...] potassium improved with dietary restriction and Lasix. [employer] Other 09-18-2023 Evaluation note* Encounter Date Diagnosis [...] potassium improved with dietary restriction and Lasix. [employer] Other 08-31-2023 Evaluation note* Encounter Date Diagnosis [...] potassium improved with dietary restriction and Lasix. [employer] Other 07-25-2023 Evaluation note* Encounter Date Diagnosis [...] to normal with dietary restriction and Lasix. [employer] Other 07-01-2023 Evaluation note* Encounter Date Diagnosis Assessment Notes Treatment Notes Treatment Clinical Notes Apr, CKD (chronic kidney disease) stage 4, GFR 15-29 ml/min (ICD-10 - N18.4) Apr, Anemia of renal disease (ICD-10 - D63.1) [employer] Other 06-27-2023 Evaluation note* Encounter Date Diagnosis [...] to normal with dietary restriction and Lasix. [employer] Other 06-01-2023 Evaluation note* Encounter Date Diagnosis [...] potassium diet and provide information about it. [employer] Other 03-16-2023 Evaluation note* Encounter Date Diagnosis [...] to Continue Vit D 5000 units daily [employer] Other 01-30-2023 Evaluation note* Encounter Date Diagnosis [...] to Continue Vit D 5000 units daily [employer] Other 12-22-2022 Evaluation note* Encounter Date Diagnosis [...] to Continue Vit D 5000 units daily [employer] Other 11-16-2022 Evaluation note* Encounter Date Diagnosis [...] to Continue Vit D 5000 units daily [employer] Other 08-04-2022 Evaluation note* Encounter Date Diagnosis Assessment Notes Treatment Notes Treatment Clinical Notes May, Hypertensive chronic kidney disease with stage 1 through stage 4 chronic kidney disease, or unspecified chronic kidney disease (ICD-10 - I12.9) [employer] Other 08-02-2022 Evaluation note* Encounter Date Diagnosis [...] to Continue Vit D 5000 units daily [employer] Other 07-19-2022 Evaluation note* Encounter Date Diagnosis Assessment Notes Treatment Notes Treatment Clinical Notes Apr, Hypertensive chronic kidney disease with stage 1 through stage 4 chronic kidney disease, or unspecified chronic kidney disease (ICD-10 - I12.9) [employer] Other 04-14-2022 Evaluation note* Encounter Date Diagnosis [...] to take Vit D 1000 units daily [employer] Other Evaluation noteNo [employer] Other Evaluation note* Diagnosis 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 Hypertensive urgency Shortness of breath Paroxysmal atrial fibrillation ([facility]) Atrial fibrillation Localized edema [facility] Type 2 diabetes mellitus with hyperglycemia, with long-term 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 ([facility])- Primary Vitamin D deficiency Microalbuminuria Proteinuria Hyperlipemia, mixed ([facility]) Mixed hyperlipidemia Primary hypertension ([facility]) Unspecified essential hypertension Insulin long-term use ([facility]) Encounter for long-term (current) use of insulin 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[facility]) Chronic lymphocytic thyroiditis Encounter for dietary consultation Chronic renal disease, stage IV ([facility]) Chronic kidney disease, Stage IV (severe) [facility] - [facility]* Type Description Date [...] NOSE 10/2019 Surgical History QUAD BYPASS AT [facility] 01/01/2021 Hospitalization History ELEVATED BLOOD PRESSURE Hospitalization History SEE ABOVE Hospitalization History COVID 09/2020 [employer] Other Hisitrj general Narrative - Reported* Type Description Date [...] History SEE ABOVE Hospitalization History COVID 09/2020 [employer] Other [employer] general Narrative - Reported* Type Description Date [...] NOSE 10/2019 [facility]21 Hospitalization History ELEVATED BLOOD PRESSURE Hospitalization History SEE ABOVE Hospitalization History COVID 09/2020 [employer] Other Hisjocn general Narrative - ReportedNoPWA Other Hisoejx general Narrative - Reported* Type Description Date [...] History SEE ABOVE Hospitalization History COVID 09/2020 [employer] Other InstructionsNot on filedocumented in this encounter [...] and content) DATE CREATED AUTHOR 04/02/2018 [facility] DATE CREATED AUTHOR AUTHOR'S ORGANIZ ATION 01/27/2023 [facility] DATE CREATED AUTHOR AUTHOR'S ORGANIZ ATION 01/18/2024 [facility] DATE CREATED AUTHOR AUTHOR'S ORGANIZ ATION 05/12/2024 [facility] DATE CREATED AUTHOR AUTHOR'S ORGANIZ ATION 07/14/2024 [facility] EPIC REASON FOR VISIT (unrecogniz ed section and content) Reason Comments Med Refill Reason Comments Diabetes Mellitus Follow-up Care Teams (unrecognized sec tion and content) Cash Manager Relationship Specialty Start Date End Date Dhruv Rubi MD [address] [place] [phone] PCP - General Family Medicine 10/20/20 Cash Manager Relationship Specialty Start Date End Date Dhruv Rubi MD [address] [place] [phone] PCP - General Family Medicine 10/22/23 Cash Manager Relationship Specialty Start Date End Date Dhruv Rubi MD [address] [place] [phone] PCP - General Family Medicine 10/22/23 FOR [...] BE BASED ON THE PRIMARY CLINICAL RECORDS. [facility] [employer] [facility]. provides no warranty or guarantee of the accuracy or completeness of information in this document.
[2024-09-04 14:34] LABS: Clarity Urine CLEAR (CLEAR); Color Urine DK. ORANGE (YELLOW)
[2024-09-04 14:35] LABS: Bilirubin Urine COLOR INTERFERENCE (NEGATIVE); Blood Urine COLOR INTERFERENCE (NEGATIVE); Glucose Urine UA COLOR INTERFERENCE mg/dL (NEGATIVE); Ketones Urine COLOR INTERFERENCE mg/dL (NEGATIVE); Leukocyte Esterase Urine COLOR INTERFERENCE (NEGATIVE); Nitrite Urine COLOR INTERFERENCE (NEGATIVE); Protein Urine COLOR INTERFERENCE mg/dL (NEG/TRACE); Urobilinogen Urine COLOR INTERFERENCE EU/dL (0.2-1.0); pH Urine COLOR INTERFERENCE (5.0-9.0)
[2024-09-04 15:05] LABS: Bacteria Urine SMALL #/HPF (NONE SEEN); Mucus Urine TRACE (NONE SEEN); Squamous Epithelial Cell Urine MODERATE #/LPF (NONE/RARE); WBC Urine 20-50 #/HPF (NONE SEEN)
[2024-09-04 15:06] LABS: Cast Seen? SEEN #/LPF (NONE SEEN); Crystals Seen? None Seen #/HPF (None Seen); Hyaline Casts Urine RARE; Urine Culture Indicated ALREADY ORDERED
== END 2024-09-04 13:10 | disposition home or self-care (01) ==
LOC: LAB 13:10
PROVIDERS: PCP Family Medicine; Visit Provider Family Medicine
DX: N39.0 Urinary tract infection, site not specified (principal)
CPT/HCPCS: 81001; 87086; 87150; 87186

== ENCOUNTER 2024-09-20 14:43 | Emergency (ER) | payer MEDICARE, SELFPAY ==
[2024-09-20] VITALS (20 sets, daily range): BP systolic 98–140; BP diastolic 50–62; PULSE 77–94; TEMP 37.9; O2SAT 92–97; BMI 30.2
--- OUTSIDE RECORDS SUMMARY | 2024-09-20 14:51 | XMS_ITS | CCD ---
Author Organization [facility] Care Team Providers Care Route Sales Person Name Role Phone PHYSICIAN, DEFAULT Unavailable Unavailable [...] DR BARTLETT Consulting Unavailable HOY ., DR BARLTETT Primary Care Unavailable HOY ., DR BARTLETT [...] Unavailable Dhruv Rubi MD Primary Care Provider [phone] THUAN DELVALLE Attending Unavailable DHRUV RUBI Referring Unavailable DHRUV RUBI Primary Care Unavailable ELTAHAWY, EHAB Attending Unavailable ELTAHAWY, EHAB Attending Unavailable CHERIE, GA H Attending Unavailable LAI, GA H Attending Unavailable PETITTI, LAVONNE A Attending Unavailable LAI, GA H Attending Unavailable PETITTI, LAVONNE A Attending Unavailable CHERIE, GA H Attending Unavailable PETITTI, LAVONNE A Attending Unavailable PETITTI, LAVONNE A Attending Unavailable PETITTI, LAVONNE A Attending Unavailable CHERIE, GA H Attending Unavailable LEYLA, LORRAINE F Attending Unavailable LEYLA, LORRAINE F Referring Unavailable Dhruv Rubi MD Primary Care Provider [phone] Dhruv Rubi MD Primary Care Provider [phone] Allergies Allergy Classification Reported Allergen(s) Allergy Type Date of Onset Reaction(s) Facility (20 sources) amLODIPine; Translations: [AMLODIPINE] Drug Allergy 03-28-20 05 Rash, Unknown [facility] (20 sources) Amoxicillin / Clavulanate Drug Allergy 11-23-19 Rash [facility] Other (20 sources) Contrast media Propensity to adverse reactions Unknown [facility] Other (2 sources) Doxazosin; Translations: [doxazosin] Drug Allergy Unknown [facility] Other (20 sources) Sulfamethoxazole / Trimethoprim Drug Allergy 11-23-19 Rash [facility] Other (20 sources) Doxazosin; Translations: [DOXAZOSIN] Drug Allergy 11-23-19 Unknown [facility] Other (9 sources) Amoxicillin / Clavulanate; Translations: [Augmentin] Drug Allergy 11-16-19 16 Unknown [facility] (1 source) amLODIPine Drug Allergy 04-25-20 14 [facility] (1 source) Sulfamethoxazole / Trimethoprim Drug Allergy 03-09-20 13 [facility] (7 sources) Iodinated Contrast Media; Translations: [IODINATED CONTRAST MEDIA] Propensity to adverse reactions to drug 11-23-19 Other [facility] (2 sources) Sulfamethoxazole / Trimethoprim; Translations: [SULFAMETHOXAZOLE-T RIMETHOPRIM] Drug Allergy 08-04-20 15 [facility] (5 sources) AMOXICILLIN-POT CLAVULANATE; Translations: [AMOXICILLIN-POT CLAVULANATE] Propensity to adverse reactions to drug (disorder) 11-23-19 21 Unknown [facility] (4 sources) Sulfamethoxazole; Translations: [SULFAMETHOXAZOLE] Drug Allergy 03-12-20 23 Unknown [facility] (3 sources) Amoxicillin Drug Allergy 03-12-20 23 Unknown [facility] (3 sources) Doxazosin Drug Allergy 03-12-20 23 Unknown [facility] (3 sources) Trimethoprim Drug [...] 6 (six) hours as needed for pain. Active take 2 tablets by mouth every [...] for the next 30 min. Active allopurinol 300 mg oral tablet (20 sources) Xanthine Oxidase Inhibitor take 1 tablet by mouth in the morning allopurinoL (ZYLOPRIM) 300 mg tablet Take 1 tablet (300 mg total) by mouth in the morning. Active take 1 tablet by enzo th three times daily allopurinol (Zyloprim) 100 MG tablet shawnee e 1 tablet by oral route 3 times every day Oral Active aspirin 81 mg delayed release oral tablet (20 sources) Platelet Aggregation Inhibitor, Nonsteroidal Anti-inflammatory Drug Start: 01-11-2021 take 1 tablet by mouth once daily aspirin 81 mg Indications: Hypertensive urgency , Shortness of breath , H/O four vessel coronary artery bypass graft , Atherosclerosis of [place] coronary artery of [place] heart without angina pectoris , Paroxysmal atrial [...] (LIPITOR) 80 mg tablet Indications: Atherosclerosis of [place] coronary artery of [place] heart without angina pectoris , H/O four [...] (20 sources) alpha-Adrenergic Gato, beta-Adrenergic Gato Start: 01-17-2024 take 2 tablets by mouth once in the morning, then take 2 tablets by mouth at bedtime carvediloL (COREG) 25 mg tablet Indications: Paroxysmal atrial fibrillation (CMS-HCC) , H/O four vessel coronary artery bypass graft , Hypertensive urgency , Shortness of breath , Localized edema Take 2 tablets (50 mg total) by mouth in the morning and 2 tablets (50 mg total) before bedtime. 180 tablet 3 01/17/2024 Active Start: 08-06-2022 take 1 tablet by enzo th once in the morning, then take 1 [...] Active take 1 tablet by enzo th in the morning carvedilol (Coreg) 25 MG tablet Take 1 [...] docusate sodium 50 mg / sennosides, senior care 8.6 mg oral tablet (5 sources) take 1 tablet by mouth every twelve hours Sennosides-Docusate Sodium 8.6-50 MG 1 tablet in the evening as needed Orally every 12 hours Active epoetin johnna-epbx 45876 UNT/ML Injectable Solution [Retacrit] (14 sources) Retacrit 19792 U NIT/ML as directed Injection Active ferrous sulfate 325 mg oral tablet (20 sources) take 1 tablet by enzo th in the morning, then take 1 tablet by mouth at bedtime ferrous sulfate 325 (65 FE) mg tablet Take 1 tablet (325 mg total) by mouth in the morning and 1 tablet (325 mg total) before bedtime. Active take 1 tablet by mouth twice [...] UNITS BEFORE LUNCH, 20 UNITS BEFORE DINNER Active inject 10 [IU] by rice bcutaneous [...] Subcutaneous 50 units twice a day Active 24 hr isosorbide mononitrate 30 mg extended release oral tablet (1 source) Nitrate Vasodilator Start: 01-17-2024 take 1 tablet by mouth once daily isosorbide mononitrate (IMDUR) 30 mg 24 hr tablet Take 1 tablet (30 mg total) by mouth daily. 90 tablet 3 01/17/2024 Active labetalol hydrochloride 200 mg oral tablet [...] mcg total) by mouth in the morning. Active take 2 tablets by mouth before m ealtime levothyroxine (Synthroid, Levoxyl) 150 MCG tablet Take 2 tablets by mouth in the morning. Take before meals. Active take 1 tablet by mouth before me altime levothyroxine (Synthroid, Levoxyl) 150 MCG tablet Take 1 tablet by mouth in the morning. Take before meals. Active take 1 tablet by enzo th [...] mcg total) by mouth in the morning. 12/05/2021 Active take 1 tablet by mouth once bebo y liothyronine (Cytomel) 5 MCG tablet Take 1 tablet by mouth Daily Active take 2 tablets by [facility] every twenty-four hours Liothyronine Sodium 5 MCG 2 tablets on a n empty stomach Orally Once a day Active take 2 tablets by mo [facility] every twenty-four hours lisinopril 20 mg oral tablet (20 sources) Angiotensin Converting Enzyme Inhibitor Start: 01-17-2024 take 1 tablet by mouth in the morning lisinopriL (PRINIVIL,ZESTRIL) 20 mg tablet Take 1 tablet (20 mg total) by mouth in the morning. 01/17/2024 Active Start: 01-18-2022 take 1 tablet by enzo th every twenty-four hours Lisinopril 10 MG 1 tablet Orally Once a day for 90 day(s) Jan, Active Start: 01-15-2022 take 1 tablet by enzo th in the morning lisinopriL (PRINIVIL,ZESTRIL) 5 mg tablet Take 1 tablet (5 mg total) by mouth in the morning. 30 tablet 11 01/15/2022 Active take 1 tablet by mouth once bebo y lisinopril 40 MG tablet take 1 tablet by oral route every day Oral Active take 1 tablet by enzo th every twenty-four hours Lisinopril 20 MG 1 tablet Orally Once a day for 90 days Active Magnesium (3 sources) MAGNESIUM PO Mag nesium Active magnesium oxide 400 mg oral tablet (20 sources) Start: 09-11-2024 take 1 tablet by mouth three times daily magnesium oxide (MAGOX) 400 mg tablet TAKE 1 TABLET BY MOUTH THREE TIMES DAILY 270 tablet 09/11/2024 Active Start: 03-23-2024 End: 09-11-2024 take 1 tablet by mouth three times daily magnesium oxide (MAGOX) 400 mg tablet take 1 tablet by mouth three times daily 270 tablet 1 03/23/2024 09/11/2024 Discontinued Start: 07-09-2023 take 1 tablet by enzo th three times daily magnesium oxide (MAGOX) 400 [...] L Take by mouth daily. 0 Active maclqgiflmop-ldcw-dqm erals-folic acid (Centrum) chewable tablet (3 sources) multivitamin-iro n-min erals-folic acid (Centrum) chewable tablet Chew 1 tablet in the morning. Active pantoprazole 40 mg delayed release oral tablet (20 sources) Proton Pump Inhibitor Start: take 1 tablet by mouth in the morning pantoprazole (PROTONIX) 40 mg EC tablet Take 1 tablet (40 mg total) by mouth in the morning. 12/19/2020 Active PANTOPRAZOLE SOD IUM PO Pantoprazole Sodium Active 12 hr ranolazine 500 mg extended release oral tablet (3 sources) Anti-anginal take 1 tablet by mouth every twelve hours in the morning ranolazine (Ranexa) 500 MG 12 hr tablet Take 1 tablet by mouth in the morning and 1 tablet before bedtime. Do not crush, chew, or split.. Active retacrit 56136 unit/ml solution (5 sources) Retacrit 51987 U NIT/ML as directed Injection Active Sennosides-Docusate [...] counseling and surveillance] 07-13-2024 Episodic Cardiac dysrhythmias (5 sources) Paroxysmal atrial fibrillation; Translations: [Paroxysmal atrial fibrillation] Onset: 1 12-21-2023 Chronic Chronic kidney disease (20 sources) Chronic kidney disease stage 3; Translations: [Chronic kidney disease, stage 3 (moderate)] Onset: 2 Resolved: 2 Chronic Congestive heart failure; nonhypertensive (1 source) Unspecified diastolic (congestive) heart failure; Translations: [UNSPECIFIED DIASTOLIC HEART FAILURE] Onset: 2 Chronic Coronary atherosclerosis and other heart disease (10 sources) Coronary atherosclerosis; Translations: [Atherosclerotic heart disease of [place] coronary artery without angina pectoris] Onset: 1 [...] Resolved: 2 Chronic Diabetes mellitus without complication (2 sources) Diabetes mellitus; Translations: [Type 2 diabetes mellitus without complications] 11-23-2020 Chronic Disorders of lipid metabolism (4 sources) Hyperlipidemia; Translations: [Other hyperlipidemia] Onset: 2 [...] [Vitamin D deficiency, unspecified] 07-13-2024 Chronic Osteoarthritis (2 sources) Arthritis; Translations: [Unspecified osteoarthritis, unspecified site] 11-23-2020 Chronic Other aftercare (2 sources) Long-term 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; Translations: [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] 07-13-2024 Episodic Other [...] Resolved: 2 Chronic Other lower respiratory disease (4 sources) Dyspnea; Translations: [Shortness of breath] Onset: 4 12-21-2023 Episodic Other nutritional; endocrine; and metabolic disorders (20 sources) Hypomagnesemia; Translations: [Hypomagnesemia] Chronic Other nutritional; endocrine; and metabolic disorders (20 sources) Obese class I; Translations: [Body mass index (BMI) 31.0-31.9, adult] Chronic Other nutritional; endocrine; and metabolic disorders (4 sources) Body mass index 30+ - obesity; Translations: [Obesity, unspecified] Onset: 1 01-11-2021 Chronic Other nutritional; endocrine; and metabolic disorders (2 sources) Obesity; Translations: [Obesity, unspecified] Onset: 2 01-15-2022 [...] Translations: [Weakness] Onset: 09-13-2022 Episodic Mood disorders (2 sources) Mood disorders Onset: 12-28-2020 12-28-2020 Other circulatory [...] on 07-13-2024 Glucose Blood, POC 180 mg/dL [facility]24 Follow-up visit [id number] Garima Robin 1945 F Date Provider Department Center 05/11/2024 [facility] No family history on file Level of Service:33200 DC OFFICE/OUTPATIENT ESTABLISHED MOD MDM 30 MIN Normal [facility] Office Visiton 02-10-2024 Follow-up visit [id number] Garima Robin e 1945 F Date Provider Department Center 02/10/2024 [facility] No family history on file Level of Service:26428 DC OFFICE/OUTPATIENT ESTABLISHED MOD MDM 30 MIN Normal [facility] HEMOGRAM AND PLATELon 2022 Hematocrit (Bld) [Volume fraction] 28.8 % Critically low 36.0-48.0 [facility] Comment on above: Performed By: #### H H #### [facility] [address] [address] [address] Ember Teague Hemoglobin (Bld) [Mass/Vol] 9.6 g/dL Critically low 12.0-16.0 [facility] Comment on above: Performed By: #### H H #### [facility] [address] [place] [address] Dr. Ember Teague MCH (RBC) [Entitic mass] 30.7 pg Normal 26.7-34.0 [facility] Comment on above: Performed By: #### H H #### [facility] [address] [place] [address] Dr. Ember Teague MCHC (RBC) [Mass/Vol] 33.3 g/dL Normal 29.9-35.2 [facility] Comment on above: Performed By: #### H H #### [facility] [address] [address] [address] Ember Teague MCV (RBC) [Entitic vol] 92.0 fL Normal 81.0-99.0 [facility] Comment on above: Performed By: #### H H #### [facility] [address] [address] [address] Ember Teague PLT 214 103/ul Normal 150-450 [facility] Comment on above: Performed By: #### H H #### [facility] [address] [place] [address] Dr. Ember Teague RBC 3.13 106/ul Critically low 4.20-5.40 [facility] Comment on above: Performed By: #### H H #### [facility] [address] [place] [address] Dr. Ember Teague WBC 7.4 103/ul Normal 4.0-11.0 [facility] Comment on above: Performed By: #### H H #### [facility] [address] [place] [address] Dr. Ember Teague MAGNESIUMon 01-22-2023 Magnesium [Mass/Vol] 1.8 mg/dL Normal 1.8-2.4 [facility] Comment on above: Performed By: #### M G, RENAL #### [facility] [address] [place] [address] Dr. Ember Teague RENAL FUNCTION PANELon 01-22 Albumin [Mass/Vol] 3.6 g/dL Normal 3.4-5.[address] [facility] Comment on above: Performed By: #### M G, RENAL #### [facility] [address] [place] [address] Dr. Ember Teague Calcium [Mass/Vol] 9.7 mg/dL Normal 8.5-10.[address] [facility] Comment on above: Performed By: #### M G, RENAL #### [facility] [address] [place] [address] Dr. Ember Teague Chloride [Moles/Vol] 105 mmol/L Normal 98-107 [facility] Comment on above: Performed By: #### M G, RENAL #### [facility] [address] [place] [address] Dr. Ember Teague CO2 [Moles/Vol] 22.6 mmol/L Normal 21.0-32.0 [facility] Comment on above: Performed By: #### M G, RENAL #### [facility] [address] [address] [address] Ember Teague Creatinine [Mass/Vol] 2.18 mg/dL Critically high 0.55-1.02 [facility] Comment on above: Performed By: #### M G, RENAL #### [facility] [address] [address] [address] Ember Teague EGFR-AF VINCENTIAN 26 mL/min/1.73m2 Critically low >=60 [facility] Comment on above: Performed By: #### M G, RENAL #### [facility] [address] [address] [address] Ember Teague EGFR-NON AF VINCENTIAN 22 mL/min/1.73m2 Critically low >=60 [facility] Comment on above: Performed By: #### M G, RENAL #### [facility] [address] [address] [address] Ember Teague Glucose [Mass/Vol] 134 mg/dL Critically high 74-106 [facility] Comment on above: Performed By: #### M G, RENAL #### [facility] [address] [address] [address] Ember Teague Phosphate [Mass/Vol] 4.6 mg/dL Normal 2.6-4.7 [facility] Comment on above: Performed By: #### M G, RENAL #### [facility] [address] [address] [address] Ember Teague Potassium [Moles/Vol] 5.1 mmol/L Normal 3.5-5.1 [facility] Comment on above: Performed By: #### M G, RENAL #### [facility] [address] [address] [address] Ember Teague Sodium [Moles/Vol] 138 mmol/L Normal 136-145 [facility] Comment on above: Performed By: #### M G, RENAL #### [facility] [address] [address] [address] Ember Teague Urea nitrogen [Mass/Vol] 61.0 mg/dL Critically high 7.0-18.0 [facility] Comment on above: Performed By: #### M G, RENAL #### [facility] [address] [address] [address] Ember Teague MG MAMM SCREEN 3D MAY CADon 12-17-2022 MG MAMM SCREEN 3D MAY CAD Patient: KYLAH ROBIN Exam Date: 12/17/2022 : 1945 Gender:F Ordering : DR DHRUV RUBI . Admission #: [id number] Family : Order #: [id number] CLICK HERE TO VIEW EXAM RADIOLOGY REPORT [...] lung cancer at age 61. LOCATION: [facility] BREAST COMPOSITION: Scattered areas fibroglandular [...] MD on 12/17/2022 at 11:59 Normal [facility] FERRITINon 12-10-2022 Ferritin [Mass/Vol] 681.0 ng/mL Critically high 8.0-252.0 [facility] Comment on above: Performed By: #### P THINT #### [facility] [address] [address] [address] Ember Teague HEMOGRAM AND PLATELon 2022 Hematocrit (Bld) [Volume fraction] 27.1 % Critically low 36.0-48.0 [facility] Comment on above: Performed By: #### C VDTBH #### [facility] [address] [place] [address] Dr. Ember Teague Hemoglobin (Bld) [Mass/Vol] 9.7 g/dL Critically low 12.0-16.0 [facility] Comment on above: Performed By: #### C VDTBH #### [facility] [address] [place] [address] Dr. Ember eTague MCH (RBC) [Entitic mass] 31.4 pg Normal 26.7-34.0 [facility] Comment on above: Performed By: #### C VDTBH #### [facility] [address] [place] [address] Dr. Ember Teague MCHC (RBC) [Mass/Vol] 35.8 g/dL Critically high 29.9-35.2 [facility] Comment on above: Performed By: #### C VDTBH #### [facility] [address] [place] [address] Dr. Ember Teague MCV (RBC) [Entitic vol] 87.7 fL Normal 81.0-99.0 [facility] Comment on above: Performed By: #### C VDTBH #### [facility] [address] [place] [address] Dr. Ember Teague PLT 218 103/ul Normal 150-450 [facility] Comment on above: Performed By: #### C VDTBH #### [facility] [address] [place] [address] Dr. Ember Teague RBC 3.09 106/ul Critically low 4.20-5.40 [facility] Comment on above: Performed By: #### C VDTBH #### [facility] [address] [place] [address] Dr. Ember Teague WBC 6.6 103/ul Normal 4.0-11.0 [facility] Comment on above: Performed By: #### C VDTBH #### [facility] [address] [place] [address] Dr. Ember Teague IRON AND TIBCon 12-10-2022 % SATURATION 30.2 % Normal [facility] Comment on above: Performed By: #### P THINT #### [facility] [address] [address] [address] Ember Teague Iron [Mass/Vol] 84.0 ug/dL Normal 50.0-170.0 [facility] Comment on above: Performed By: #### P THINT #### [facility] [address] [address] [address] Ember Teague TIBC DIRECT 278.0 ug/dL Normal 250.0-450.0 [facility] Comment on above: Performed By: #### P THINT #### [facility] [address] [address] [address] Ember Teague XR FOOT MAY MIN [...] BENI APARICIO Date: 2022-11-20 14:03 Normal [facility] HEMOGRAM AND PLATELon 2022 Hematocrit (Bld) [Volume fraction] 27.7 % Critically low 36.0-48.0 [facility] Comment on above: Performed By: #### R ENAL #### [facility] [address] [place] [address] Dr. Ember Teague Hemoglobin (Bld) [Mass/Vol] 10.0 g/dL Critically low 12.0-16.0 [facility] Comment on above: Performed By: #### R ENAL #### [facility] [address] [place] [address] Dr. Ember Teague MCH (RBC) [Entitic mass] 31.6 pg Normal 26.7-34.0 [facility] Comment on above: Performed By: #### R ENAL #### [facility] [address] [place] [address] Dr. Ember Teague MCHC (RBC) [Mass/Vol] 36.1 g/dL Critically high 29.9-35.2 [facility] Comment on above: Performed By: #### R ENAL #### [facility] [address] [place] [address] Dr. Ember Teague MCV (RBC) [Entitic vol] 87.7 fL Normal 81.0-99.0 [facility] Comment on above: Performed By: #### R ENAL #### [facility] [address] [place] [address] Dr. Ember Teague PLT 182 103/ul Normal 150-450 [facility] Comment on above: Performed By: #### R ENAL #### [facility] [address] [place] [address] Dr. Ember Teague RBC 3.16 106/ul Critically low 4.20-5.40 [facility] Comment on above: Performed By: #### R ENAL #### [facility] [address] [place] [address] Dr. Ember Teague WBC 6.8 103/ul Normal 4.0-11.0 [facility] Comment on above: Performed By: #### R ENAL #### [facility] [address] [place] [address] Dr. Ember Teague PROF CHEM 8 (BAS METB)on Anion gap [Moles/Vol] 17.6 mmol/L Normal [facility] Comment on above: Performed By: #### C VDTBH #### [facility] [address] [place] [address] Dr. Ember Teague Calcium [Mass/Vol] 9.0 mg/dL Normal 8.5-10.1 [facility] Comment on above: Performed By: #### C VDTBH #### [facility] [address] [address] [address] Ember Teague Chloride [Moles/Vol] 104 mmol/L Normal 98-107 [facility] Comment on above: Performed By: #### C VDTBH #### [facility] [address] [address] [address] Ember Teague CO2 [Moles/Vol] 22.2 mmol/L Normal 21.0-32.0 [facility] Comment on above: Performed By: #### C VDTBH #### [facility] [address] [place] [address] Dr. Ember Teague Creatinine [Mass/Vol] 2.03 mg/dL Critically high 0.55-1.02 [facility] Comment on above: Performed By: #### C VDTBH #### [facility] [address] [place] [address] Dr. Ember Teague EGFR-AF VINCENTIAN 29 mL/min/1.73m2 Critically low >=60 [facility] Comment on above: Performed By: #### C VDTBH #### [facility] [address] [place] [address] Dr. Ember Teague EGFR-NON AF VINCENTIAN 24 mL/min/1.73m2 Critically low >=60 [facility] Comment on above: Performed By: #### C VDTBH #### [facility] [address] [place] [address] Dr. Ember Teague Glucose [Mass/Vol] 154 mg/dL Critically high 74-106 [facility] Comment on above: Performed By: #### C VDTBH #### [facility] [address] [place] [address] Dr. Ember Teague Potassium [Moles/Vol] 4.8 mmol/L Normal 3.5-5.1 [facility] Comment on above: Performed By: #### C VDTBH #### [facility] [address] [place] [address] Dr. Ember Teague Sodium [Moles/Vol] 139 mmol/L Normal 136-145 [facility] Comment on above: Performed By: #### C VDTBH #### [facility] [address] [address] [address] Ember Teague Urea nitrogen [Mass/Vol] 43.0 mg/dL Critically high 7.0-18.0 [facility] Comment on above: Performed By: #### C VDTBH #### [facility] [address] [address] [address] Ember Teague Urea nitrogen/Creatinine [Mass ratio] 21.2 mg/mg Normal [facility] Comment on above: Performed By: #### C VDTBH #### [facility] [address] [address] [address] Ember Teague CULTURE SPUTUMon 10-24-2022 CULTURE SPUTUM Culture Observations : Beta lactamase positive Isolate 1 Haemophilus influenzae Moderate growth of Normal [facility] [facility] Comment on above: Performed By: #### R ENAL #### [facility] [address] [place] [address] Dr. Ember Teague SPUTUM GRAM STAINon 10-24-19 COMMENTS Normal [facility] Comment on above: Performed By: #### R ENAL #### [facility] [address] [place] [address] Dr. Ember Teague DIPHTHEROIDS Normal [facility] Comment on above: Performed By: #### R ENAL #### [facility] [address] [place] [address] Dr. Ember Teague EPITHELIALS >25 Normal [facility] Comment on above: Performed By: #### R ENAL #### [facility] [address] [place] [address] Dr. Ember Teague FUNGAL ELEMENTS Normal [facility] Comment on above: Performed By: #### R ENAL #### [facility] [address] [address] [address] Ember Teague GRAM NEG BACILLI Normal [facility] Comment on above: Performed By: #### R ENAL #### [facility] [address] [place] [address] Dr. Ember LOCKWOOD NEG DIPPLOCOCCI FEW Normal [facility] Comment on above: Performed By: #### R ENAL #### [facility] [address] [address] [address] Ember Teague GRAM POS BACILLI FEW Normal [facility] Comment on above: Performed By: #### R ENAL #### [facility] [address] [place] [address] Dr. Ember Teague GRAM POSITIVE COCCI MANY Normal [facility] Comment on above: Performed By: #### R ENAL #### [facility] [address] [place] [address] Dr. Ember Teague WBC (Bld) [#/Vol] 10*3/uL Normal [facility] Comment on above: Performed By: #### R ENAL #### [facility] [address] [place] [address] Dr. Ember Teague XR CHEST 2 Von [...] ANGELINA BRISENO Date: 2022-10-24 16:22 Normal [facility] FERRITINon 09-18-2022 Ferritin [Mass/Vol] 612.0 ng/mL Critically high 8.0-252.0 [facility] Comment on above: Performed By: #### F ERR, FETIBC #### [facility] [address] [place] [address] Dr. Ember Teague HEMOGRAM AND PLATELon 09-18 Hematocrit (Bld) [Volume fraction] 28.1 % Critically low 36.0-48.0 [facility] Comment on above: Performed By: #### C BC #### [facility] [address] [place] [address] Dr. Ember Teague Hemoglobin (Bld) [Mass/Vol] 9.7 g/dL Critically low 12.0-16.0 [facility] Comment on above: Performed By: #### C BC #### [facility] [address] [address] [address] Ember Teague MCH (RBC) [Entitic mass] 31.3 pg Normal 26.7-34.0 [facility] Comment on above: Performed By: #### C BC #### [facility] [address] [place] [address] Dr. Ember Teague MCHC (RBC) [Mass/Vol] 34.5 g/dL Normal 29.9-35.2 [facility] Comment on above: Performed By: #### C BC #### [facility] [address] [place] [address] Dr. Ember Teague MCV (RBC) [Entitic vol] 90.6 fL Normal 81.0-99.0 [facility] Comment on above: Performed By: #### C BC #### [facility] [address] [place] [address] Dr. Ember Teague PLT 183 103/ul Normal 150-450 [facility] Comment on above: Performed By: #### C BC #### [facility] [address] [place] [address] Dr. Ember Teague RBC 3.10 106/ul Critically low 4.20-5.40 [facility] Comment on above: Performed By: #### C BC #### [facility] [address] [place] [address] Dr. Ember Teague WBC 7.2 103/ul Normal 4.0-11.0 [facility] Comment on above: Performed By: #### C BC #### [facility] [address] [place] [address] Dr. Ember Teague IRON AND TIBCon 09-18-2022 % SATURATION 36.0 % Normal [facility] Comment on above: Performed By: #### F ERR, FETIBC #### [facility] [address] [place] [address] Dr. Ebmer Teague Iron [Mass/Vol] 77.0 ug/dL Normal 50.0-170.0 [facility] Comment on above: Performed By: #### F ERR, FETIBC #### [facility] [address] [address] [address] Ember Teague TIBC DIRECT 214.0 ug/dL Critically low 250.0-450.0 [facility] Comment on above: Performed By: #### F ERR, FETIBC #### [facility] [address] [place] [address] Dr. Ember Teague RENAL FUNCTION PANELon 09-18 Albumin [Mass/Vol] 3.7 g/dL Normal 3.4-5.0 [facility] Comment on above: Performed By: #### R ENAL #### [facility] [address] [place] [address] Dr. Ember Teague Calcium [Mass/Vol] 9.5 mg/dL Normal 8.5-10.1 [facility] Comment on above: Performed By: #### R ENAL #### [facility] [address] [address] [address] Ember Teague Chloride [Moles/Vol] 103 mmol/L Normal 98-107 [facility] Comment on above: Performed By: #### R ENAL #### [facility] [address] [place] [address] Dr. Ember Teague CO2 [Moles/Vol] 21.1 mmol/L Normal 21.0-32.0 [facility] Comment on above: Performed By: #### R ENAL #### [facility] [address] [address] [address] Ember Teague Creatinine [Mass/Vol] 1.85 mg/dL Critically high 0.55-1.02 [facility] Comment on above: Performed By: #### R ENAL #### [facility] [address] [place] [address] Dr. Ember Teague EGFR-AF VINCENTIAN 32 mL/min/1.73m2 Critically low >=60 [facility] Comment on above: Performed By: #### R ENAL #### [facility] [address] [place] [address] Dr. Ember Teague EGFR-NON AF VINCENTIAN 26 mL/min/1.73m2 Critically low >=60 [facility] Comment on above: Performed By: #### R ENAL #### [facility] [address] [place] [address] Dr. Ember Teague Glucose [Mass/Vol] 183 mg/dL Critically high 74-106 [facility] Comment on above: Performed By: #### R ENAL #### [facility] [address] [place] [address] Dr. Ember Teague Phosphate [Mass/Vol] 3.7 mg/dL Normal 2.6-4.7 [facility] Comment on above: Performed By: #### R ENAL #### [facility] [address] [place] [address] Dr. Ember Teague Potassium [Moles/Vol] 4.9 mmol/L Normal 3.5-5.1 [facility] Comment on above: Performed By: #### R ENAL #### [facility] [address] [place] [address] Dr. Ember Teague Sodium [Moles/Vol] 138 mmol/L Normal 136-145 [facility] Comment on above: Performed By: #### R ENAL #### [facility] [address] [place] [address] Dr. Ember Teague Urea nitrogen [Mass/Vol] 40.0 mg/dL Critically high 7.0-18.0 [facility] Comment on above: Performed By: #### R ENAL #### [facility] [address] [place] [address] Dr. Ember Teague CULTURE URINEon 09-15-2022 CULTURE [...] Trimethoprim/Sulfamet hoxazole <=20 S F Normal [facility] Comment on above: Performed By: #### R ENAL #### [facility] [address] [place] [address] Dr. Ember Teague BNPon 09-11-2022 Natriuretic peptide B (Bld) [Mass/Vol] 408.0 pg/mL Normal <=1,800.0 [facility] Comment on above: Performed By: #### P THINT #### [facility] [address] [place] [address] Dr. Ember Teague CBC AUTO DIFFon 09-11-2022 BASO # 0.0 103/ul Normal 0.0-0.1 [facility] Comment on above: Performed By: #### C BC #### [facility] [address] [place] [address] Dr. Ember Teague Basophils/100 WBC (Bld) 0.3 % Normal 0.2-2.0 [facility] Comment on above: Performed By: #### C BC #### [facility] [address] [place] [address] Dr. Ember Teague EO # 0.1 103/ul Normal 0.0-0.7 [facility] Comment on above: Performed By: #### C BC #### [facility] [address] [place] [address] Dr. Ember Teague Eosinophils/100 WBC (Bld) 1.9 % Normal 0.9-7.0 [facility] Comment on above: Performed By: #### C BC #### [facility] [address] [place] [address] Dr. Ember Teague Erythrocyte distribution width (RBC) [Ratio] 15.2 % Critically high 11.0-15.0 [facility] Comment on above: Performed By: #### C BC #### [facility] [address] [place] [address] Dr. Ember Teague Hematocrit (Bld) [Volume fraction] 26.6 % Critically low 36.0-48.0 [facility] Comment on above: Performed By: #### C BC #### [facility] [address] [place] [address] Dr. Ember Teague Hemoglobin (Bld) [Mass/Vol] 9.0 g/dL Critically low 12.0-16.0 [facility] Comment on above: Performed By: #### C BC #### [facility] [address] [place] [address] Dr. Ember Teague IG # 0.02 10e3/ul Normal 0.00-0.03 [facility] Comment on above: Performed By: #### C BC #### [facility] [address] [place] [address] Dr. Ember Teague IG % 0.3 % Normal 0.0-0.5 [facility] Comment on above: Performed By: #### C BC #### [facility] [address] [place] [address] Dr. Ember Teague LYMPH # 1.9 103/ul Normal 1.2-3.8 [facility] Comment on above: Performed By: #### C BC #### [facility] [address] [place] [address] Dr. Ember Teague Lymphocytes/100 WBC (Bld) 32.4 % Normal 20.5-60.0 [facility] Comment on above: Performed By: #### C BC #### [facility] [address] [place] [address] Dr. Ember Teague MANUAL DIFF REQ NO Normal [facility] Comment on above: Performed By: #### C BC #### [facility] [address] [place] [address] Dr. Ember Teague MCH (RBC) [Entitic mass] 31.1 pg Normal 26.7-34.0 [facility] Comment on above: Performed By: #### C BC #### [facility] [address] [place] [address] Dr. Ember Teague MCHC (RBC) [Mass/Vol] 33.8 g/dL Normal 29.9-35.2 [facility] Comment on above: Performed By: #### C BC #### [facility] [address] [place] [address] Dr. Ember Teague MCV (RBC) [Entitic vol] 92.0 fL Normal 81.0-99.0 [facility] Comment on above: Performed By: #### C BC #### [facility] [address] [place] [address] Dr. Ember Teague MONO # 0.6 103/ul Normal 0.3-0.8 [facility] Comment on above: Performed By: #### C BC #### [facility] [address] [place] [address] Dr. Ember Teague Monocytes/100 WBC (Bld) 10.0 % Normal 1.7-12.0 [facility] Comment on above: Performed By: #### C BC #### [facility] [address] [place] [address] Dr. Ember Teague NEUT # 3.2 103/ul Normal 1.4-6.5 [facility] Comment on above: Performed By: #### C BC #### [facility] [address] [place] [address] Dr. Ember Teague Neutrophils/100 WBC (Bld) 55.1 % Normal 43.0-75.0 [facility] Comment on above: Performed By: #### C BC #### [facility] [address] [place] [address] Dr. Ember Teague Platelet mean volume (Bld) [Entitic vol] 9.4 fL Critically low 9.5-13.5 [facility] Comment on above: Performed By: #### C BC #### [facility] [address] [place] [address] Dr. Ember Teague PLT 196 103/ul Normal 150-450 [facility] Comment on above: Performed By: #### C BC #### [facility] [address] [place] [address] Dr. Ember Teague RBC 2.89 106/ul Critically low 4.20-5.40 [facility] Comment on above: Performed By: #### C BC #### [facility] [address] [place] [address] Dr. Ember Teague WBC 5.8 103/ul Normal 4.0-11.0 [facility] Comment on above: Performed By: #### C BC #### [facility] [address] [place] [address] Dr. Ember Teague PROF 14(COMP METB)on 022 Albumin [Mass/Vol] 3.7 g/dL Normal 3.4-5.0 [facility] Comment on above: Performed By: #### P THINT #### [facility] [address] [place] [address] Dr. Ember Teague Albumin/Globulin [Mass ratio] 1.0 {ratio} Normal [facility] Comment on above: Performed By: #### P THINT #### [facility] [address] [place] [address] Dr. Ember Teague ALP [Catalytic activity/Vol] 79 U/L Normal 46-116 [facility] Comment on above: Performed By: #### P THINT #### [facility] [address] [place] [address] Dr. Ember Teague ALT [Catalytic activity/Vol] 24 U/L Normal 14-59 [facility] Comment on above: Performed By: #### P THINT #### [facility] [address] [place] [address] Dr. Ember Teague Anion gap [Moles/Vol] 12.8 mmol/L Normal [facility] Comment on above: Performed By: #### P THINT #### [facility] [address] [place] [address] Dr. Ember Teague AST [Catalytic activity/Vol] 17 U/L Normal 15-37 [facility] Comment on above: Performed By: #### P THINT #### [facility] [address] [place] [address] Dr. Ember Teague Bilirubin [Mass/Vol] 0.5 mg/dL Normal 0.2-1.0 [facility] Comment on above: Performed By: #### P THINT #### [facility] [address] [place] [address] Dr. Ember Teague Calcium [Mass/Vol] 9.4 mg/dL Normal 8.5-10.1 [facility] Comment on above: Performed By: #### P THINT #### [facility] [address] [place] [address] Dr. Ember Teague Chloride [Moles/Vol] 101 mmol/L Normal 98-107 [facility] Comment on above: Performed By: #### P THINT #### [facility] [address] [place] [address] Dr. Ember Teague CO2 [Moles/Vol] 24.3 mmol/L Normal 21.0-32.0 [facility] Comment on above: Performed By: #### P THINT #### [facility] [address] [place] [address] Dr. Ember Teague Creatinine [Mass/Vol] 2.84 mg/dL Critically high 0.55-1.02 [facility] Comment on above: Performed By: #### P THINT #### [facility] [address] [place] [address] Dr. Ember Teague EGFR-AF VINCENTIAN 20 mL/min/1.73m2 Critically low >=60 [facility] Comment on above: Performed By: #### P THINT #### [facility] [address] [place] [address] Dr. Ember Teague EGFR-NON AF VINCENTIAN 16 mL/min/1.73m2 Critically low >=60 [facility] Comment on above: Performed By: #### P THINT #### [facility] [address] [place] [address] Dr. Ember Teague Globulin (S) [Mass/Vol] 3.7 g/dL Normal [facility] Comment on above: Performed By: #### P THINT #### [facility] [address] [place] [address] Dr. Ember Teague Glucose [Mass/Vol] 174 mg/dL Critically high 74-106 [facility] Comment on above: Performed By: #### P THINT #### [facility] [address] [place] [address] Dr. Ember Teague Potassium [Moles/Vol] 5.1 mmol/L Normal 3.5-5.1 [facility] Comment on above: Performed By: #### P THINT #### [facility] [address] [place] [address] Dr. Ember Teague Protein [Mass/Vol] 7.4 g/dL Normal 6.4-8.2 [facility] Comment on above: Performed By: #### P THINT #### [facility] [address] [address] [address] Ember Teague Sodium [Moles/Vol] 133 mmol/L Critically low 136-145 [facility] Comment on above: Performed By: #### P THINT #### [facility] [address] [place] [address] Dr. Ember Teague Urea nitrogen [Mass/Vol] 68.0 mg/dL Critically high 7.0-18.0 [facility] Comment on above: Performed By: #### P THINT #### [facility] [address] [place] [address] Dr. Ember Teague Urea nitrogen/Creatinine [Mass ratio] 23.9 mg/mg Normal [facility] Comment on above: Performed By: #### P THINT #### [facility] [address] [place] [address] Dr. Ember Teague TROPONIN, HIGH SENSITIVITYon 09-11-2022 HSTROP 9.1 pg/mL Normal 4.0-51.3 [facility] Comment on above: Result Comment: CUT- OFF POINTS HAVE BEEN ESTABLISHED BASED ON THE FOURTH UNIVERSAL DEFINITIONS OF MYOCARDIAL INFARCTION. THE UPPER REFERENCE LIMIT (URL) OF TROPONIN, DEFINED THE 99TH PERCENTILE OF cTnI DISTRIBUTION IN A REFERENCE POPULATION, HAS BEEN CONFIRMED THE DECISION THRESHOLD FOR WA DIAGNOSIS. Performed By: #### P THINT #### [facility] [address] [place] [address] Dr. Ember Teague UA RANDOM W/MICROSCOPICon BACTERIA NONE SEEN Normal NONE SEEN [facility] Comment on above: Performed By: #### C VDTBH #### [facility] [address] [place] [address] Dr. Ember Teague Bilirubin Ql (U) Negative Normal NEGATIVE [facility] Comment on above: Performed By: #### C VDTBH #### [facility] [address] [place] [address] Dr. Ember Teague CAST NONE SEEN Normal NONE SEEN [facility] Comment on above: Performed By: #### C VDTBH #### [facility] [address] [place] [address] Dr. Ember Teague Clarity (U) CLEAR Normal CLEAR [facility] Comment on above: Performed By: #### C VDTBH #### [facility] [address] [place] [address] Dr. Ember Teague Color (U) LT. YELLOW Normal YELLOW [facility] Comment on above: Performed By: #### C VDTBH #### [facility] [address] [place] [address] Dr. Ember Teague Crystals LM Nom (Urine sed) NONE SEEN Normal NONE SEEN [facility] Comment on above: Performed By: #### C VDTBH #### [facility] [address] [place] [address] Dr. Ember Teague Epithelial cells LM Ql (Urine sed) FEW Abnormal NONE SEEN /RARE [facility] Comment on above: Performed By: #### C VDTBH #### [facility] [address] [place] [address] Dr. Ember Teague Glucose Ql (U) Negative Normal NEGATIVE [facility] Comment on above: Performed By: #### C VDTBH #### [facility] [address] [place] [address] Dr. Ember Teague Hemoglobin Ql (U) Negative Normal NEGATIVE [facility] Comment on above: Performed By: #### C VDTBH #### [facility] [address] [place] [address] Dr. Ember Teague Ketones Ql (U) Negative Normal NEGATIVE [facility] Comment on above: Performed By: #### C VDTBH #### [facility] [address] [place] [address] Dr. Ember Teague LEUKOCYTES Negative Normal NEGATIVE [facility] Comment on above: Performed By: #### C VDTBH #### [facility] [address] [place] [address] Dr. Ember Teague MUCOUS NONE SEEN Normal NONE SEEN [facility] Comment on above: Performed By: #### C VDTBH #### [facility] [address] [place] [address] Dr. Ember Teague Nitrite Ql (U) Negative Normal NEGATIVE [facility] Comment on above: Performed By: #### C VDTBH #### [facility] [address] [place] [address] Dr. Ember Teague pH (U) 5.5 [pH] Normal 5-9 [facility] Comment on above: Performed By: #### C VDTBH #### [facility] [address] [place] [address] Dr. Ember Teague RBC NONE SEEN Abnormal 0-2 [facility] Comment on above: Performed By: #### C VDTBH #### [facility] [address] [place] [address] Dr. Ember Teague SPEC GRAVITY 1.010 Normal 1.005-<=1.025 [facility] Comment on above: Performed By: #### C VDTBH #### [facility] [address] [place] [address] Dr. Ember Teague UA PROTEIN Negative Normal NEGATIVE/ TRACE [facility] Comment on above: Performed By: #### C VDTBH #### [facility] [address] [place] [address] Dr. Ember Teague Urobilinogen Qn (U) 0.2 {Esau'U}/dL Normal 0.2 - 1. 0 [facility] Comment on above: Performed By: #### C VDTBH #### [facility] [address] [place] [address] Dr. Ember Teague WBC NONE SEEN Normal NONE SEEN [facility] Comment on above: Performed By: #### C VDTBH #### [facility] [address] [place] [address] Dr. Ember Teague CBC AUTO DIFFon 08-13-2022 BASO # 0.0 103/ul Normal 0.0-0.1 [facility] Comment on above: Performed By: #### C BC #### [facility] [address] [place] [address] Dr. Ember Teague Basophils/100 WBC (Bld) 0.3 % Normal 0.2-2.0 [facility] Comment on above: Performed By: #### C BC #### [facility] [address] [place] [address] Dr. Ember Teague EO # 0.2 103/ul Normal 0.0-0.7 [facility] Comment on above: Performed By: #### C BC #### [facility] [address] [place] [address] Dr. Ember Teague Eosinophils/100 WBC (Bld) 3.7 % Normal 0.9-7.0 [facility] Comment on above: Performed By: #### C BC #### [facility] [address] [place] [address] Dr. Ember Teague Erythrocyte distribution width (RBC) [Ratio] 15.0 % Normal 11.0-15.0 [facility] Comment on above: Performed By: #### C BC #### [facility] [address] [place] [address] Dr. Ember Teague Hematocrit (Bld) [Volume fraction] 27.9 % Critically low 36.0-48.0 [facility] Comment on above: Performed By: #### C BC #### [facility] [address] [place] [address] Dr. Ember Teague Hemoglobin (Bld) [Mass/Vol] 9.7 g/dL Critically low 12.0-16.0 [facility] Comment on above: Performed By: #### C BC #### [facility] [address] [place] [address] Dr. Ember Teague IG # 0.01 10e3/ul Normal 0.00-0.03 [facility] Comment on above: Performed By: #### C BC #### [facility] [address] [place] [address] Dr. Ember Teague IG % 0.2 % Normal 0.0-0.5 [facility] Comment on above: Performed By: #### C BC #### [facility] [address] [place] [address] Dr. Ember Teague LYMPH # 1.9 103/ul Normal 1.2-3.8 [facility] Comment on above: Performed By: #### C BC #### [facility] [address] [place] [address] Dr. Ember Teague Lymphocytes/100 WBC (Bld) 32.2 % Normal 20.5-60.0 [facility] Comment on above: Performed By: #### C BC #### [facility] [address] [place] [address] Dr. Ember Teague MANUAL DIFF REQ NO Normal [facility] Comment on above: Performed By: #### C BC #### [facility] [address] [place] [address] Dr. Ember Teague MCH (RBC) [Entitic mass] 31.4 pg Normal 26.7-34.0 [facility] Comment on above: Performed By: #### C BC #### [facility] [address] [place] [address] Dr. Ember Teague MCHC (RBC) [Mass/Vol] 34.8 g/dL Normal 29.9-35.2 [facility] Comment on above: Performed By: #### C BC #### [facility] [address] [place] [address] Dr. Ember Teague MCV (RBC) [Entitic vol] 90.3 fL Normal 81.0-99.0 [facility] Comment on above: Performed By: #### C BC #### [facility] [address] [place] [address] Dr. Ember Teague MONO # 0.6 103/ul Normal 0.3-0.8 [facility] Comment on above: Performed By: #### C BC #### [facility] [address] [place] [address] Dr. Ember Teague Monocytes/100 WBC (Bld) 9.8 % Normal 1.7-12.0 [facility] Comment on above: Performed By: #### C BC #### [facility] [address] [place] [address] Dr. Ember Teague NEUT # 3.2 103/ul Normal 1.4-6.5 [facility] Comment on above: Performed By: #### C BC #### [facility] [address] [place] [address] Dr. Ember Teague Neutrophils/100 WBC (Bld) 53.8 % Normal 43.0-75.0 [facility] Comment on above: Performed By: #### C BC #### [facility] [address] [place] [address] Dr. Ember Teague Platelet mean volume (Bld) [Entitic vol] 10.0 fL Normal 9.5-13.5 [facility] Comment on above: Performed By: #### C BC #### [facility] [address] [place] [address] Dr. Ember Teague PLT 194 103/ul Normal 150-450 [facility] Comment on above: Performed By: #### C BC #### [facility] [address] [place] [address] Dr. Ember Teague RBC 3.09 106/ul Critically low 4.20-5.40 [facility] Comment on above: Performed By: #### C BC #### [facility] [address] [place] [address] Dr. Ember Teague WBC 6.0 103/ul Normal 4.0-11.0 [facility] Comment on above: Performed By: #### C BC #### [facility] [address] [place] [address] Dr. Ember Teague PTH INTACTon 06-26-2022 PTH, Intact 39 pg/mL Normal 15-65 [facility] Comment on above: Performed By: #### P THINT #### [facility] [address] [place] [address] Dr. Ember Teague CBC AUTO DIFFon 06-25-2022 BASO # 0.1 103/ul Normal 0.0-0.1 [facility] Comment on above: Performed By: #### C VDTBH #### [facility] [address] [place] [address] Dr. Ember Teague Basophils/100 WBC (Bld) 0.6 % Normal 0.2-2.0 [facility] Comment on above: Performed By: #### C VDTBH #### [facility] [address] [place] [address] Dr. Ember Teague EO # 0.2 103/ul Normal 0.0-0.7 [facility] Comment on above: Performed By: #### C VDTBH #### [facility] [address] [place] [address] Dr. Ember Teague Eosinophils/100 WBC (Bld) 3.0 % Normal 0.9-7.0 [facility] Comment on above: Performed By: #### C VDTBH #### [facility] [address] [place] [address] Dr. Ember Teague Erythrocyte distribution width (RBC) [Ratio] 14.2 % Normal 11.0-15.0 [facility] Comment on above: Performed By: #### C VDTBH #### [facility] [address] [place] [address] Dr. Ember Teague Hematocrit (Bld) [Volume fraction] 30.9 % Critically low 36.0-48.0 [facility] Comment on above: Performed By: #### C VDTBH #### [facility] [address] [place] [address] Dr. Ember Teague Hemoglobin (Bld) [Mass/Vol] 10.6 g/dL Critically low 12.0-16.0 [facility] Comment on above: Performed By: #### C VDTBH #### [facility] [address] [place] [address] Dr. Ember Teague IG # 0.04 10e3/ul Critically high 0.00-0.03 [facility] Comment on above: Performed By: #### C VDTBH #### [facility] [address] [place] [address] Dr. Ember Teague IG % 0.5 % Normal 0.0-0.5 [facility] Comment on above: Performed By: #### C VDTBH #### [facility] [address] [place] [address] Dr. Ember Teague LYMPH # 2.2 103/ul Normal 1.2-3.8 [facility] Comment on above: Performed By: #### C VDTBH #### [facility] [address] [place] [address] Dr. Ember Teague Lymphocytes/100 WBC (Bld) 27.0 % Normal 20.5-60.0 [facility] Comment on above: Performed By: #### C VDTBH #### [facility] [address] [place] [address] Dr. Ember Teague MANUAL DIFF REQ NO Normal [facility] Comment on above: Performed By: #### C VDTBH #### [facility] [address] [place] [address] Dr. Ember Teague MCH (RBC) [Entitic mass] 31.2 pg Normal 26.7-34.0 [facility] Comment on above: Performed By: #### C VDTBH #### [facility] [address] [place] [address] Dr. Ember Teague MCHC (RBC) [Mass/Vol] 34.3 g/dL Normal 29.9-35.2 [facility] Comment on above: Performed By: #### C VDTBH #### [facility] [address] [place] [address] Dr. Ember Teague MCV (RBC) [Entitic vol] 90.9 fL Normal 81.0-99.0 [facility] Comment on above: Performed By: #### C VDTBH #### [facility] [address] [place] [address] Dr. Ember Teague MONO # 0.7 103/ul Normal 0.3-0.8 [facility] Comment on above: Performed By: #### C VDTBH #### [facility] [address] [place] [address] Dr. Ember Teague Monocytes/100 WBC (Bld) 9.2 % Normal 1.7-12.0 [facility] Comment on above: Performed By: #### C VDTBH #### [facility] [address] [address] [address] Ember Teague NEUT # 4.8 103/ul Normal 1.4-6.5 [facility] Comment on above: Performed By: #### C VDTBH #### [facility] [address] [address] [address] Ember Teague Neutrophils/100 WBC (Bld) 59.7 % Normal 43.0-75.0 [facility] Comment on above: Performed By: #### C VDTBH #### [facility] [address] [place] [address] Dr. Ember Teague Platelet mean volume (Bld) [Entitic vol] 9.3 fL Critically low 9.5-13.5 [facility] Comment on above: Performed By: #### C VDTBH #### [facility] [address] [place] [address] Dr. Ember Teague PLT 227 103/ul Normal 150-450 [facility] Comment on above: Performed By: #### C VDTBH #### [facility] [address] [place] [address] Dr. Ember Teague RBC 3.40 106/ul Critically low 4.20-5.40 [facility] Comment on above: Performed By: #### C VDTBH #### [facility] [address] [place] [address] Dr. Ember Teague WBC 8.0 103/ul Normal 4.0-11.0 [facility] Comment on above: Performed By: #### C VDTBH #### [facility] [address] [place] [address] Dr. Ember Teague MRI LSPINE WO CONon [...] YANET HUERTA Date: 2022-06-25 08:45 Normal [facility] RENAL FUNCTION PANELon 06-25 Albumin [Mass/Vol] 3.9 g/dL Normal 3.4-5.0 [facility] Comment on above: Performed By: #### P THINT #### [facility] [address] [address] [address] Ember Teague Calcium [Mass/Vol] 9.5 mg/dL Normal 8.5-10.[address] [facility] Comment on above: Performed By: #### P THINT #### [facility] [address] [address] [address] Ember Teague Chloride [Moles/Vol] 102 mmol/L Normal 98-107 [facility] Comment on above: Performed By: #### P THINT #### [facility] [address] [address] [address] Ember Teague CO2 [Moles/Vol] 23.8 mmol/L Normal 21.0-32.0 [facility] Comment on above: Performed By: #### P THINT #### [facility] [address] [address] [address] Ember Teague Creatinine [Mass/Vol] 1.75 mg/dL Critically high 0.55-1.02 [facility] Comment on above: Performed By: #### P THINT #### [facility] [address] [address] [address] Ember Teague EGFR-AF VINCENTIAN 34 mL/min/1.73m2 Critically low >=60 [facility] Comment on above: Performed By: #### P THINT #### [facility] [address] [address] [address] Ember Teague EGFR-NON AF VINCENTIAN 28 mL/min/1.73m2 Critically low >=60 [facility] Comment on above: Performed By: #### P THINT #### [facility] [address] [address] [address] Ember Teague Glucose [Mass/Vol] 199 mg/dL Critically high 74-106 T [facility] Comment on above: Performed By: #### P THINT #### [facility] [address] [address] [address] Ember Teague Phosphate [Mass/Vol] 4.3 mg/dL Normal 2.6-4.7 [facility] Comment on above: Performed By: #### P THINT #### [facility] [address] [address] [address] Ember Teague Potassium [Moles/Vol] 4.9 mmol/L Normal 3.5-5.1 [facility] Comment on above: Performed By: #### P THINT #### [facility] [address] [address] [address] Ember Teague Sodium [Moles/Vol] 135 mmol/L Critically low 136-145 Th [facility] Comment on above: Performed By: #### P THINT #### [facility] [address] [address] [address] Ember Teague Urea nitrogen [Mass/Vol] 34.0 mg/dL Critically high 7.0-18.0 [facility] Comment on above: Performed By: #### P THINT #### [facility] [address] [address] [address] Ember Teague VITAMIN D 25 OHon 06-25-2022 VIT D 25-OH 40.6 ng/mL Normal [facility] Comment on above: Performed By: #### P THINT #### [facility] [address] [address] [address] Ember Teague VIT D RANGES SEE BELOW Normal [facility] Comment on above: Result Comment: <20 ng/mL Vit D deficient 20 - <30 ng/mL Vit D insufficient 30 - 100 ng/mL Vit D sufficient >100 ng/mL Potential Toxicity Performed By: #### P THINT #### [facility] [address] [place] [address] Dr. Ember Teague Covid-19 PCR (CVDTB)on 06-07 SARS-CoV-2 (COVID-19) RNA ALEXX+probe Ql (Unsp spec) Not detected Normal NOT DETECTED [facility] Comment on above: Result Comment: This test is not yet approved or cleared by the [place] FDA. When there are no FDA-approved or cleared tests available, and other criteria are met, FDA can make tests available under an emergency access mechanism called an Emergency Use Authorization (EUA). The EUA for this test is supported by the [employer] of Health and Human Service's (HHS's) declaration [...] consistent with SARS-CoV-2. Performed By: #### C [facility] #### [facility] [address] [address] [address] LSPINE WO CONon [...] HUERTA Date: 2022-06-01 18:02 Normal [facility] XR LSPINE MIN 4 VIEWSon 05-07 XR [...] YANET HUERTA Date: 2022-05-21 15:25 Normal [facility] PTH INTACTon 05-03-2022 PTH, Intact 60 pg/mL Normal 15-65 [facility] Comment on above: Performed By: #### C VDTBH #### [facility] [address] [address] [address] Ember Teague VIT D 25-OH LABCORPon 2021 Vitamin D, 25-Hydroxy 26.1 ng/mL Critically low 30.0-100.0 [facility] Comment on above: Result Comment: Sara min D deficiency has been defined by the [place] [employer] and an Endocrine Society practice guideline as a level of serum 25-OH vitamin D less than 20 ng/mL (1,2). The Endocrine Society went on to further define vitamin D insufficiency as a level between 21 and 29 ng/mL (2). 1. IOM ([place] [employer]). 2010. Dietary reference intakes for calcium and D. [place]: The National Academies Press. 2. Sherice MF, Wendy NC, Huan ZHONG, et al. Evaluation, treatment, and prevention of vitamin D deficiency: an Endocrine Society clinical practice guideline. JCEM. 2010; 96(7):1911-30. Performed By: #### R ENAL #### [facility] [address] [address] [address] Ember Teague FERRITINon 05-02-2022 Ferritin [Mass/Vol] 590.0 ng/mL Critically high 8.0-252.0 [facility] Comment on above: Performed By: #### R ENAL #### [facility] [address] [address] [address] Ember Teague HEMOGRAM AND PLATELon 2021 Hematocrit (Bld) [Volume fraction] 28.4 % Critically low 36.0-48.0 [facility] Comment on above: Performed By: #### C VDTBH #### [facility] [address] [place] [address] Dr. Ember Teague Hemoglobin (Bld) [Mass/Vol] 9.6 g/dL Critically low 12.0-16.0 [facility] Comment on above: Performed By: #### C VDTBH #### [facility] [address] [place] [address] Dr. Ember Teague MCH (RBC) [Entitic mass] 31.0 pg Normal 26.7-34.0 [facility] Comment on above: Performed By: #### C VDTBH #### [facility] [address] [place] [address] Dr. Ember Teague MCHC (RBC) [Mass/Vol] 33.8 g/dL Normal 29.9-35.2 [facility] Comment on above: Performed By: #### C VDTBH #### [facility] [address] [place] [address] Dr. Ember Teague MCV (RBC) [Entitic vol] 91.6 fL Normal 81.0-99.0 [facility] Comment on above: Performed By: #### C VDTBH #### [facility] [address] [place] [address] Dr. Ember Teague PLT 189 103/ul Normal 150-450 [facility] Comment on above: Performed By: #### C VDTBH #### [facility] [address] [place] [address] Dr. Ember Teague RBC 3.10 106/ul Critically low 4.20-5.40 [facility] Comment on above: Performed By: #### C VDTBH #### [facility] [address] [place] [address] Dr. Ember Teague WBC 6.2 103/ul Normal 4.0-11.0 [facility] Comment on above: Performed By: #### C VDTBH #### [facility] [address] [place] [address] Dr. Ember Teague IRON AND TIBCon 05-02-2022 % SATURATION 34.3 % Normal [facility] Comment on above: Performed By: #### R ENAL #### [facility] [address] [address] [address] Ember Teague Iron [Mass/Vol] 69.0 ug/dL Normal 50.0-170.0 [facility] Comment on above: Performed By: #### R ENAL #### [facility] [address] [place] [address] Dr. Ember Teague TIBC DIRECT 201.0 ug/dL Critically low 250.0-450.0 [facility] Comment on above: Performed By: #### R ENAL #### [facility] [address] [place] [address] Dr. Ember Teague MAGNESIUMon 05-02-2022 Magnesium [Mass/Vol] 1.7 mg/dL Critically low 1.8-2.4 [facility] Comment on above: Performed By: #### C VDTBH #### [facility] [address] [place] [address] Dr. Ember Teague RENAL FUNCTION PANELon 05-02 Albumin [Mass/Vol] 3.6 g/dL Normal 3.4-5.0 [facility] Comment on above: Performed By: #### C VDTBH #### [facility] [address] [place] [address] Dr. Ember Teague Calcium [Mass/Vol] 9.2 mg/dL Normal 8.5-10.[address] [facility] Comment on above: Performed By: #### C VDTBH #### [facility] [address] [place] [address] Dr. Ember Teague Chloride [Moles/Vol] 107 mmol/L Normal 98-107 [facility] Comment on above: Performed By: #### C VDTBH #### [facility] [address] [place] [address] Dr. Ember Teague CO2 [Moles/Vol] 21.2 mmol/L Normal 21.0-32.0 [facility] Comment on above: Performed By: #### C VDTBH #### [facility] [address] [place] [address] Dr. Ember Teague Creatinine [Mass/Vol] 1.75 mg/dL Critically high 0.55-1.02 [facility] Comment on above: Performed By: #### C VDTBH #### [facility] [address] [address] [address] Ember Teague EGFR-AF VINCENTIAN 34 mL/min/1.73m2 Critically low >=60 [facility] Comment on above: Performed By: #### C VDTBH #### [facility] [address] [address] [address] Ember Teague EGFR-NON AF VINCENTIAN 28 mL/min/1.73m2 Critically low >=60 [facility] Comment on above: Performed By: #### C VDTBH #### [facility] [address] [place] [address] Dr. Ember Teague Glucose [Mass/Vol] 193 mg/dL Critically high 74-106 [facility] Comment on above: Performed By: #### C VDTBH #### [facility] [address] [place] [address] Dr. Ember Teague Phosphate [Mass/Vol] 4.2 mg/dL Normal 2.6-4.7 [facility] Comment on above: Performed By: #### C VDTBH #### [facility] [address] [place] [address] Dr. Ember Teague Potassium [Moles/Vol] 5.1 mmol/L Normal 3.5-5.1 [facility] Comment on above: Performed By: #### C VDTBH #### [facility] [address] [place] [address] Dr. Ember Teague Sodium [Moles/Vol] 139 mmol/L Normal 136-145 [facility] Comment on above: Performed By: #### C VDTBH #### [facility] [address] [place] [address] Dr. Ember Teague Urea nitrogen [Mass/Vol] 34.0 mg/dL Critically high 7.0-18.0 [facility] Comment on above: Performed By: #### C VDTBH #### [facility] [address] [place] [address] Dr. Ember Teague UA RANDOM W/MICROSCOPICon BACTERIA SMALL Abnormal NONE SEEN [facility] Comment on above: Performed By: #### C VDTBH #### [facility] [address] [place] [address] Dr. Ember Teague Bilirubin Ql (U) Negative Normal NEGATIVE [facility] Comment on above: Performed By: #### C VDTBH #### [facility] [address] [place] [address] Dr. Ember Teague CAST NONE SEEN Normal NONE SEEN [facility] Comment on above: Performed By: #### C VDTBH #### [facility] [address] [place] [address] Dr. Ember Teague Clarity (U) CLEAR Normal CLEAR [facility] Comment on above: Performed By: #### C VDTBH #### [facility] [address] [place] [address] Dr. Ember Teague Color (U) LT. YELLOW Normal YELLOW [facility] Comment on above: Performed By: #### C VDTBH #### [facility] [address] [place] [address] Dr. Ember Teague Crystals LM Nom (Urine sed) NONE SEEN Normal NONE SEEN [facility] Comment on above: Performed By: #### C VDTBH #### [facility] [address] [place] [address] Dr. Ember Teague Epithelial cells LM Ql (Urine sed) MODERATE Abnormal NONE SEEN /RARE [facility] Comment on above: Performed By: #### C VDTBH #### [facility] [address] [place] [address] Dr. Ember Teague Glucose Ql (U) Negative Normal NEGATIVE [facility] Comment on above: Performed By: #### C VDTBH #### [facility] [address] [place] [address] Dr. Ember Teague Hemoglobin Ql (U) Negative Normal NEGATIVE [facility] Comment on above: Performed By: #### C VDTBH #### [facility] [address] [place] [address] Dr. Ember Teague Ketones Ql (U) Negative Normal NEGATIVE [facility] Comment on above: Performed By: #### C VDTBH #### [facility] [address] [place] [address] Dr. Ember Teague LEUKOCYTES TRACE Abnormal NEGATIVE [facility] Comment on above: Performed By: #### C VDTBH #### [facility] [address] [place] [address] Dr. Ember Teague MUCOUS NONE SEEN Normal NONE SEEN [facility] Comment on above: Performed By: #### C VDTBH #### [facility] [address] [place] [address] Dr. Ember Teague Nitrite Ql (U) Negative Normal NEGATIVE [facility] Comment on above: Performed By: #### C VDTBH #### [facility] [address] [place] [address] Dr. Ember Teague pH (U) 5.0 [pH] Normal 5-9 [facility] Comment on above: Performed By: #### C VDTBH #### [facility] [address] [place] [address] Dr. Ember Teague RBC NONE SEEN Abnormal 0-2 [facility] Comment on above: Performed By: #### C VDTBH #### [facility] [address] [place] [address] Dr. Ember Teague SPEC GRAVITY 1.015 Normal 1.005-<=1.025 [facility] Comment on above: Performed By: #### C VDTBH #### [facility] [address] [place] [address] Dr. Ember Teague UA PROTEIN TRACE Normal NEGATIVE/ TRACE [facility] Comment on above: Performed By: #### C VDTBH #### [facility] [address] [place] [address] Dr. Ember Teague Urobilinogen Qn (U) 0.2 {Esau'U}/dL Normal 0.2 - 1. 0 [facility] Comment on above: Performed By: #### C VDTBH #### [facility] [address] [place] [address] Dr. Ember Teague WBC 0-2 Abnormal NONE SEEN [facility] Comment on above: Performed By: #### C VDTBH #### [facility] [address] [place] [address] Dr. Ember Teague URIC ACID SERUMon 05-02-2022 Urate [Mass/Vol] 4.4 mg/dL Normal 2.6-6.0 [facility] Comment on above: Performed By: #### C BC #### [facility] [address] [place] [address] Dr. Ember Teague URINE T PROTEIN CREAT RATIOo n 05-02-2022 Protein (U) [Mass/Vol] 33.7 mg/dL Critically high <=12.0 [facility] Comment on above: Performed By: #### C VDTBH #### [facility] [address] [place] [address] Dr. Ember Teague UR PROT CREAT RAT 0.69 Normal [facility] Comment on above: Performed By: #### C VDTBH #### [facility] [address] [place] [address] Dr. Ember Teague URINE CREAT 48.93 mg/dL Normal 20.00-300.00 [facility] Comment on above: Performed By: #### C VDTBH #### [facility] [address] [place] [address] Dr. Ember Teague Vital Signs Date Time Vital Sign Value Performing Clinician Facility 11-18-2023 10:00-0500 Body height 168.91 cm Ron Martinez Other [facility] Other 11-18-2023 10:00-0500 Body mass index (BMI) [Ratio] 29.85 kg/m2 Ron Quirosdir Other [facility] Other 11-18-2023 10:00-0500 Body temperature 97.3 [degF] Ron Martinez Other [facility] Other 11-18-2023 10:00-0500 Body weight 85.19 kg Ron Doreen Other [facility] Other 11-18-2023 10:00-0500 Diastolic blood pressure 79 mm[Hg] Ron Doreen Other [facility] Other 11-18-2023 10:00-0500 Respiratory rate 18 /min Ron Doreen Other [facility] Other 11-18-2023 10:00-0500 SaO2% (BldA) [Mass fraction] 98 % Ron Doreen Other [facility] Other 11-18-2023 10:00-0500 Systolic blood pressure 149 mm[Hg] Ron Doreen Other [facility] Other 11-04-2023 11:00-0500 Body height 168.91 cm Ron Doreen Other [facility] Other 11-04-2023 11:00-0500 Body mass index (BMI) [Ratio] 30.17 kg/m2 Ron Doreen Other [facility] Other 11-04-2023 11:00-0500 Body temperature 97.6 [degF] Ron Doreen Other [facility] Other 11-04-2023 11:00-0500 Body weight 86.09 kg Ron Doreen Other [facility] Other 11-04-2023 11:00-0500 Diastolic blood pressure 76 mm[Hg] Ron Doreen Other [facility] Other 11-04-2023 11:00-0500 Respiratory rate 18 /min Ron Doreen Other [facility] Other 11-04-2023 11:00-0500 SaO2% (BldA) [Mass fraction] 98 % Ron Doreen Other [facility] Other 11-04-2023 11:00-0500 Systolic blood pressure 153 mm[Hg] Ron Doreen Other [facility] Other 10-15-2023 13:00-0500 Body height 168.91 cm Ron Doreen Other [facility] Other 10-15-2023 13:00-0500 Body mass index (BMI) [Ratio] 29.82 kg/m2 Ron Doreen Other [facility] Other 10-15-2023 13:00-0500 Body temperature 97.5 [degF] Ron Doreen Other [facility] Other 10-15-2023 13:00-0500 Body weight 85.1 kg Ron Doreen Other [facility] Other 10-15-2023 13:00-0500 Diastolic blood pressure 68 mm[Hg] Ron Doreen Other [facility] Other 10-15-2023 13:00-0500 Respiratory rate 18 /min Ron Doreen Other [facility] Other 10-15-2023 13:00-0500 SaO2% (BldA) [Mass fraction] 98 % Ron Doreen Other [facility] Other 10-15-2023 13:00-0500 Systolic blood pressure 113 mm[Hg] Ron Doreen Other [facility] Other 08-27-2023 09:40-0500 Body height 168.91 cm Azduc Bakjuniors Other [facility] Other 08-27-2023 09:40-0500 Body mass index (BMI) [Ratio] 30.2 kg/m2 Aziz Bakhous Other [facility] Other 08-27-2023 09:40-0500 Body temperature 96.7 [degF] Azduc Mensahs Other [facility] Other 08-27-2023 09:40-0500 Body weight 86.18 kg Aziz Bakhous Other [facility] Other 08-27-2023 09:40-0500 Diastolic blood pressure 72 mm[Hg] Azduc Bakhous Other [facility] Other 08-27-2023 09:40-0500 Respiratory rate 18 /min Aziz Bakhous Other [facility] Other 08-27-2023 09:40-0500 SaO2% (BldA) [Mass fraction] 98 % Aziz Bakhous Other [facility] Other 08-27-2023 09:40-0500 Systolic blood pressure 153 mm[Hg] Aziz Bakhous Other [facility] Other 08-15-2023 10:20-0500 Body height 168.91 cm Ron Doreen Other [facility] Other 08-15-2023 10:20-0500 Body mass index (BMI) [Ratio] 30.2 kg/m2 Ron Doreen Other [facility] Other 08-15-2023 10:20-0500 Body temperature 97.1 [degF] Ron Doreen Other [facility] Other 08-15-2023 10:20-0500 Body weight 86.18 kg Ron Doreen Other [facility] Other 08-15-2023 10:20-0500 Diastolic blood pressure 79 mm[Hg] Ron Doreen Other [facility] Other 08-15-2023 10:20-0500 Respiratory rate 18 /min Ron Doreen Other [facility] Other 08-15-2023 10:20-0500 SaO2% (BldA) [Mass fraction] 98 % Ron Doreen Other [facility] Other 08-15-2023 10:20-0500 Systolic blood pressure 164 mm[Hg] Ron Doreen Other [facility] Other 08-13-2023 15:40-0500 Body height 168.91 cm Ron Doreen Other [facility] Other 08-13-2023 15:40-0500 Body mass index (BMI) [Ratio] 30.24 kg/m2 Ron Doreen Other [facility] Other 08-13-2023 15:40-0500 Body temperature 97.2 [degF] Ron Doreen Other [facility] Other 08-13-2023 15:40-0500 Body weight 86.27 kg Ron Doreen Other [facility] Other 08-13-2023 15:40-0500 Diastolic blood pressure 79 mm[Hg] Ron Doreen Other [facility] Other 08-13-2023 15:40-0500 Respiratory rate 18 /min Ron Doreen Other [facility] Other 08-13-2023 15:40-0500 SaO2% (BldA) [Mass fraction] 98 % Ron Doreen Other [facility] Other 08-13-2023 15:40-0500 Systolic blood pressure 186 mm[Hg] Ron Doreen Other [facility] Other 08-01-2023 13:00-0400 Body height 168.91 cm Ron Doreen Other [facility] Other 08-01-2023 13:00-0400 Body mass index (BMI) [Ratio] 30.55 kg/m2 Ron Doreen Other [facility] Other 08-01-2023 13:00-0400 Body temperature 97.8 [degF] Ron Doreen Other [facility] Other 08-01-2023 13:00-0400 Body weight 87.18 kg Ron Doreen Other [facility] Other 08-01-2023 13:00-0400 Diastolic blood pressure 72 mm[Hg] Ron Doreen Other [facility] Other 08-01-2023 13:00-0400 Respiratory rate 18 /min Ron Doreen Other [facility] Other 08-01-2023 13:00-0400 SaO2% (BldA) [Mass fraction] 98 % Ron Doreen Other [facility] Other 08-01-2023 13:00-0400 Systolic blood pressure 160 mm[Hg] Ron Doreen Other [facility] Other 06-24-2023 11:40-0400 Body height 168.91 cm Ron Doreen Other [facility] Other 06-24-2023 11:40-0400 Body mass index (BMI) [Ratio] 29.89 kg/m2 Ron Doreen Other [facility] Other 06-24-2023 11:40-0400 Body temperature 97.3 [degF] Ron Doreen Other [facility] Other 06-24-2023 11:40-0400 Body weight 85.28 kg Ron Doreen Other [facility] Other 06-24-2023 11:40-0400 Diastolic blood pressure 75 mm[Hg] Ron Doreen Other [facility] Other 06-24-2023 11:40-0400 Respiratory rate 18 /min Ron Doreen Other [facility] Other 06-24-2023 11:40-0400 SaO2% (BldA) [Mass fraction] 99 % Ron Doreen Other [facility] Other 06-24-2023 11:40-0400 Systolic blood pressure 129 mm[Hg] Ron Doreen Other [facility] Other 06-06-2023 15:20-0400 Body height 168.91 cm Ron Doreen Other [facility] Other 06-06-2023 15:20-0400 Body mass index (BMI) [Ratio] 29.92 kg/m2 Ron Doreen Other [facility] Other 06-06-2023 15:20-0400 Body temperature 96.5 [degF] Ron Doreen Other [facility] Other 06-06-2023 15:20-0400 Body weight 85.37 kg Ron Doreen Other [facility] Other 06-06-2023 15:20-0400 Diastolic blood pressure 49 mm[Hg] Ron Doreen Other [facility] Other 06-06-2023 15:20-0400 Respiratory rate 18 /min Ron Doreen Other [facility] Other 06-06-2023 15:20-0400 SaO2% (BldA) [Mass fraction] 99 % Ron Doreen Other [facility] Other 06-06-2023 15:20-0400 Systolic blood pressure 128 mm[Hg] Ron Doreen Other [facility] Other 04-30-2023 11:40-0400 Body height 168.91 cm Ron Doreen Other [facility] Other 04-30-2023 11:40-0400 Body mass index (BMI) [Ratio] 30.52 kg/m2 Ron Doreen Other [facility] Other 04-30-2023 11:40-0400 Body temperature 96.9 [degF] Ron Doreen Other [facility] Other 04-30-2023 11:40-0400 Body weight 87.09 kg Ron Doreen Other [facility] Other 04-30-2023 11:40-0400 Diastolic blood pressure 80 mm[Hg] Ron Doreen Other [facility] Other 04-30-2023 11:40-0400 Respiratory rate 18 /min Ron Doreen Other [facility] Other 04-30-2023 11:40-0400 SaO2% (BldA) [Mass fraction] 98 % Ron Doreen Other [facility] Other 04-30-2023 11:40-0400 Systolic blood pressure 150 mm[Hg] Ron Doreen Other [facility] Other 04-06-2023 09:00-0400 Body height 168.91 cm Ron Doreen Other [facility] Other 04-06-2023 09:00-0400 Body mass index (BMI) [Ratio] 30.36 kg/m2 Ron Doreen Other [facility] Other 04-06-2023 09:00-0400 Body weight 86.64 kg Ron Doreen Other [facility] Other 04-06-2023 09:00-0400 Diastolic blood pressure 54 mm[Hg] Ron Doreen Other [facility] Other 04-06-2023 09:00-0400 Respiratory rate 18 /min Ron Doreen Other [facility] Other 04-06-2023 09:00-0400 SaO2% (BldA) [Mass fraction] 98 % Ron Doreen Other [facility] Other 04-06-2023 09:00-0400 Systolic blood pressure 144 mm[Hg] Ron Doreen Other [facility] Other 04-02-2023 14:40-0400 Body height 168.91 cm Ron Doreen Other [facility] Other 04-02-2023 14:40-0400 Body mass index (BMI) [Ratio] 30.55 kg/m2 Ron Doreen Other [facility] Other 04-02-2023 14:40-0400 Body temperature 97 [degF] Ron Doreen Other [facility] Other 04-02-2023 14:40-0400 Body weight 87.18 kg Ron Doreen Other [facility] Other 04-02-2023 14:40-0400 Diastolic blood pressure 76 mm[Hg] Ron Doreen Other [facility] Other 04-02-2023 14:40-0400 Respiratory rate 18 /min Ron Doreen Other [facility] Other 04-02-2023 14:40-0400 SaO2% (BldA) [Mass fraction] 98 % Ron Doreen Other [facility] Other 04-02-2023 14:40-0400 Systolic blood pressure 183 mm[Hg] Ron Doreen Other [facility] Other 03-07-2023 09:20-0400 Body height 168.91 cm Ron Doreen Other [facility] Other 03-07-2023 09:20-0400 Body mass index (BMI) [Ratio] 30.52 kg/m2 Ron Doreen Other [facility] Other 03-07-2023 09:20-0400 Body temperature 97.1 [degF] Ron Doreen Other [facility] Other 03-07-2023 09:20-0400 Body weight 87.09 kg Ron Doreen Other [facility] Other 03-07-2023 09:20-0400 Diastolic blood pressure 72 mm[Hg] Ron Doreen Other [facility] Other 03-07-2023 09:20-0400 Respiratory rate 18 /min Ron Doreen Other [facility] Other 03-07-2023 09:20-0400 SaO2% (BldA) [Mass fraction] 97 % Ron Doreen Other [facility] Other 03-07-2023 09:20-0400 Systolic blood pressure 130 mm[Hg] Ron Doreen Other [facility] Other 12-20-2022 13:20-0400 Body height 168.91 cm Ron Doreen Other [facility] Other 12-20-2022 13:20-0400 Body mass index (BMI) [Ratio] 30.68 kg/m2 Ron Doreen Other [facility] Other 12-20-2022 13:20-0400 Body temperature 97.1 [degF] Ron Doreen Other [facility] Other 12-20-2022 13:20-0400 Body weight 87.54 kg Ron Doreen Other [facility] Other 12-20-2022 13:20-0400 Diastolic blood pressure 72 mm[Hg] Ron Doreen Other [facility] Other 12-20-2022 13:20-0400 Respiratory rate 18 /min Ron Doreen Other [facility] Other 12-20-2022 13:20-0400 SaO2% (BldA) [Mass fraction] 99 % Ron Doreen Other [facility] Other 12-20-2022 13:20-0400 Systolic blood pressure 139 mm[Hg] Ron Doreen Other [facility] Other 11-05-2022 14:00-0500 Body height 168.91 cm Ron Doreen Other [facility] Other 11-05-2022 14:00-0500 Body mass index (BMI) [Ratio] 30.59 kg/m2 Ron Doreen Other [facility] Other 11-05-2022 14:00-0500 Body temperature 96.8 [degF] Ron Doreen Other [facility] Other 11-05-2022 14:00-0500 Body weight 87.27 kg Ron Doreen Other [facility] Other 11-05-2022 14:00-0500 Diastolic blood pressure 72 mm[Hg] Ron Doreen Other [facility] Other 11-05-2022 14:00-0500 Respiratory rate 18 /min Ron Doreen Other [facility] Other 11-05-2022 14:00-0500 SaO2% (BldA) [Mass fraction] 98 % Ron Doreen Other [facility] Other 11-05-2022 14:00-0500 Systolic blood pressure 157 mm[Hg] Ron Doreen Other [facility] Other 09-27-2022 16:00-0500 Body height 168.91 cm Jana Monson Other [facility] Other 09-27-2022 16:00-0500 Body mass index (BMI) [Ratio] 30.55 kg/m2 Jana Monson Other [facility] Other 09-27-2022 16:00-0500 Body temperature 96.8 [degF] Jana Monson Other [facility] Other 09-27-2022 16:00-0500 Body weight 87.18 kg Jana Monson Other [facility] Other 09-27-2022 16:00-0500 Diastolic blood pressure 73 mm[Hg] Jana Monson Other [facility] Other 09-27-2022 16:00-0500 Respiratory rate 18 /min Jana Monson Other [facility] Other 09-27-2022 16:00-0500 SaO2% (BldA) [Mass fraction] 98 % Jana Monson Other [facility] Other 09-27-2022 16:00-0500 Systolic blood pressure 159 mm[Hg] Jana Monson Other [facility] Other 08-22-2022 12:00-0500 Body height 168.91 cm Ron Doreen Other [facility] Other 08-22-2022 12:00-0500 Body mass index (BMI) [Ratio] 30.65 kg/m2 Ron Doreen Other [facility] Other 08-22-2022 12:00-0500 Body temperature 96.9 [degF] Ron Doreen Other [facility] Other 08-22-2022 12:00-0500 Body weight 87.45 kg Ron Doreen Other [facility] Other 08-22-2022 12:00-0500 Diastolic blood pressure 75 mm[Hg] Ron Doreen Other [facility] Other 08-22-2022 12:00-0500 Respiratory rate 18 /min Ron Doreen Other [facility] Other 08-22-2022 12:00-0500 SaO2% (BldA) [Mass fraction] 96 % Ron Doreen Other [facility] Other 08-22-2022 12:00-0500 Systolic blood pressure 121 mm[Hg] Ron Doreen Other [facility] Other 05-08-2022 10:20-0400 Body height 168.91 cm Ron Doreen Other [facility] Other 05-08-2022 10:20-0400 Body mass index (BMI) [Ratio] 31.54 kg/m2 Ron Doreen Other [facility] Other 05-08-2022 10:20-0400 Body temperature 97.6 [degF] Ron Doreen Other [facility] Other 05-08-2022 10:20-0400 Body weight 89.99 kg Ron Doreen Other [facility] Other 05-08-2022 10:20-0400 Diastolic blood pressure 68 mm[Hg] Ron Doreen Other [facility] Other 05-08-2022 10:20-0400 Respiratory rate 18 /min Ron Doreen Other [facility] Other 05-08-2022 10:20-0400 SaO2% (BldA) [Mass fraction] 98 % Ron Doreen Other [facility] Other 05-08-2022 10:20-0400 Systolic blood pressure 131 mm[Hg] Ron Doreen Other [facility] Other 01-18-2022 10:20-0400 Body height 168.91 cm Ron Doreen Other [facility] Other 01-18-2022 10:20-0400 Body mass index (BMI) [Ratio] 31 kg/m2 Ron Doreen Other [facility] Other 01-18-2022 10:20-0400 Body temperature 96.4 [degF] Ron Doreen Other [facility] Other 01-18-2022 10:20-0400 Body weight 88.45 kg Ron Doreen Other [facility] Other 01-18-2022 10:20-0400 Diastolic blood pressure 74 mm[Hg] Ron Doreen Other [facility] Other 01-18-2022 10:20-0400 Respiratory rate 18 /min Ron Doreen Other [facility] Other 01-18-2022 10:20-0400 SaO2% (BldA) [Mass fraction] 97 % Ron Doreen Other [facility] Other 01-18-2022 10:20-0400 Systolic blood pressure 170 mm[Hg] Ron Doreen Other [facility] Other Encounters Encounter Date Encounter Type Care Provider Facility Start: 09-05-2024 End: 09-11-2024 Refill Marie Garcia [employer] Work Phone: [facility] Comment on above: Med Refill Start: 07-13-2024 End: 07-13-2024 Bamboo flowsheet Lorraine Mayer MD Work Phone: [facility] Start: 07-13-2024 End: 07-13-2024 Bamboo flowsheet Lorraine Mayer MD Work Phone: [facility] Start: 07-13-2024 End: 07-13-2024 Office outpatient visit 25 minutes Lorraine Mayer MD Work Phone: [facility] Comment on above: Type 2 diabetes diony itus with hyperglycemia, with long-term 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 ([facility]) (Primary Dx); Vitamin D deficiency; Microalbuminuria; Hyperlipemia, mixed (CMS/HCC); Primary hypertension (CMS/HCC); Insulin long-term use (CMS/HCC); 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[facility]); Encounter for dietary consultation; Chronic renal disease, stage IV ([facility]) Start: 07-13-2024 End: 07-13-2024 ambulatory LORRAINE MAYER Not Available Start: 06-25-2024 End: 06-25-2024 ambulatory GA LAI Not Available Start: 06-04-2024 End: 06-04-2024 ambulatory LAVONNE A PETITTI Not Available Start: 05-25-2024 End: 05-25-2024 ambulatory LAVONNE A PETITTI Not Available Start: 05-11-2024 End: 05-11-2024 ambulatory [facility] Start: 04-21-2024 End: 04-21-2024 ambulatory LAVONNE A PETITTI Not Available Start: 04-16-2024 End: 04-16-2024 ambulatory GA H CHERIE Not Available Start: 03-16-2024 End: 03-16-2024 ambulatory LAVONNE A PETITTI Not Available Start: 02-10-2024 End: 02-10-2024 ambulatory [facility] Start: 01-17-2024 End: 01-17-[address] [facility] Start: 01-16-2024 End: 01-16-2024 ambulatory GA LAI Not Available Start: 12-21-2023 Refill Luis dominique PA-C Work Phone: [facility] Comment on above: Med Refill Start: 11-28-2023 End: 11-28-2023 ambulatory LAVONNE A PETITTI Not Available Start: 11-18-2023 End: 11-18-2023 ambulatory Ron Doreen Other [facility] Other Start: 11-18-2023 Office outpatient vi sit 15 minutes Ron Doreen [facility] Start: 11-05-2023 End: 11-05-2023 ambulatory GA Josh LAI Not Available Start: 11-04-2023 (INJECTION) INJECTION Ron Doreen [facility] Start: 11-04-2023 End: 11-04-2023 ambulatory Ron Doreen Other [facility] Other Start: 10-22-2023 End: 10-22-2023 ambulatory GA LAI Not Available Start: 10-15-2023 End: 10-15-2023 ambulatory Ron Doreen Other [facility] Other Start: 10-15-2023 Office outpatient vi sit 15 minutes Ron Doreen [facility] Start: 10-08-2023 End: 10-08-2023 ambulatory Aziz Bakhous Other [facility] Other Start: 10-08-2023 Telephone encounter Aziz Bakhous [facility] Start: 09-15-2023 End: 09-15-2023 ambulatory Ron Doreen Other [facility] Other Start: 09-15-2023 Telephone encounter Ron Doreen [facility] Start: 09-09-2023 End: 09-09-2023 ambulatory Ron Doreen Other [facility] Other Start: 09-09-2023 Telephone encounter Ron Doreen [facility] Start: 08-27-2023 (INJECTION) INJECTION Aziz Bakhous [facility] Start: 08-27-2023 End: 08-27-2023 ambulatory Aziz Bakhous Other [facility] Other Start: 08-15-2023 (INJECTION) INJECTION Ron Doreen [facility] Start: 08-15-2023 End: 08-15-2023 ambulatory Ron Doreen Other [facility] Other Start: 08-13-2023 (INJECTION) INJECTION Ron Doreen [facility] Start: 08-13-2023 End: 08-13-2023 ambulatory Ron Doreen Other [facility] Other Start: 08-01-2023 End: 08-01-2023 ambulatory Ron Doreen Other [facility] Other Start: 08-01-2023 Office outpatient vi sit 15 minutes Ron Doreen [facility] Start: 06-24-2023 End: 06-24-2023 ambulatory Ron Doreen Other [facility] Other Start: 06-24-2023 Office outpatient vi sit 10 minutes Ron Doreen [facility] Start: 06-06-2023 End: 06-06-2023 ambulatory Ron Doreen Other [facility] Other Start: 06-06-2023 Office outpatient vi sit 15 minutes Ron Doreen [facility] Start: 04-30-2023 End: 04-30-2023 ambulatory Ron Doreen Other [facility] Other Start: 04-30-2023 Office outpatient vi sit 15 minutes Ron Doreen [facility] Start: 04-06-2023 (INJECTION) INJECTION Ron Doreen [facility] Start: 04-06-2023 End: 04-06-2023 ambulatory Ron Doreen Other [facility] Other Start: 04-06-2023 Telephone encounter Ron Doreen [facility] Start: 04-02-2023 End: 04-02-2023 ambulatory Ron Doreen Other [facility] Other Start: 04-02-2023 Office outpatient vi sit 15 minutes Ron Doreen [facility] Start: 04-02-2023 Telephone encounter Ron Doreen [facility] Start: 03-07-2023 End: 03-07-2023 ambulatory Ron Doreen Other [facility] Other Start: 03-07-2023 Office outpatient vi sit 15 minutes Ron Doreen [facility] Start: 01-22-2023 End: 01-23-2023 ambulatory RON DOREEN Facility:[facility] Start: 12-20-2022 End: 12-20-2022 ambulatory Ron Doreen Other [facility] Other Start: 12-20-2022 Office outpatient vi sit 15 minutes Ron Doreen [facility] Start: 12-17-2022 End: 12-18-[address] DHRUV RUBI . Facility:[facility] Start: 12-10-2022 End: 12-11-2022 ambulatory RON DOREEN Facility:[facility] Start: 11-20-2022 End: 11-21-[address] BENI APARICIO Facility:[facility] Start: 11-05-2022 End: 11-05-2022 ambulatory Ron Doreen Other [facility] Other Start: 11-05-2022 Office outpatient vi sit 15 minutes Ron Doreen [facility] Start: 10-29-2022 End: 10-30-[address] JANA MONSON Facility:[facility] Start: 10-24-2022 End: 10-24-[address] LILLIAN ACOSTA . Facility:[facility] Start: 10-24-2022 End: 10-25-[address] DHRUV RUBI . Facility:[facility] Start: 09-27-2022 End: 09-27-2022 ambulatory Jana Monson Other [facility] Other Start: 09-27-2022 Office outpatient vi sit 15 minutes Jana Monson [facility] Start: 09-18-2022 End: 09-19-2022 ambulatory RON DOREEN Facility:[facility] Start: 09-11-2022 End: 09-11-[address] DHRUV RUBI . Facility:[facility] Start: 08-22-2022 End: 08-22-2022 ambulatory Ron Doreen Other [facility] Other Start: 08-22-2022 Office outpatient vi sit 15 minutes Ron Doreen [facility] Start: 08-13-2022 End: 08-14-2022 ambulatory RON DOREEN Facility:[facility] Start: 06-25-2022 End: 06-26-[address] DHRUV RUBI . Facility:[facility] Start: 06-18-2022 End: 06-18-[address] DHRUV RUBI . Facility:[facility] Start: 06-01-2022 End: 06-02-[address] YANET HUERTA Facility:[facility] Start: 05-28-2022 End: 05-28-2022 ambulatory Ron Doreen Other [facility] Other Start: 05-28-2022 Telephone encounter Ron Doreen [facility] Start: 05-21-2022 End: 05-22-[address] DHRUV URBI . Facility:[facility] Start: 05-16-2022 End: 05-16-2022 ambulatory Ron Doreen Other [facility] Other Start: 05-16-2022 Telephone encounter Ron Doreen [facility] Start: 05-10-2022 End: 05-10-2022 ambulatory Ron Doreen Other [facility] Other Start: 05-10-2022 Telephone encounter Ron Doreen [facility] Start: 05-08-2022 End: 05-08-2022 ambulatory Ron Doreen Other [facility] Other Start: 05-08-2022 Office outpatient vi sit 25 minutes Ron Doreen [facility] Start: 05-02-2022 End: 05-03-2022 ambulatory RON DOREEN Facility:[facility] Start: 04-24-2022 End: 04-24-2022 ambulatory Aziz Bakhous Other [facility] Other Start: 04-24-2022 Telephone encounter Aziz Bakhous [facility] Start: 01-18-2022 End: 01-18-2022 ambulatory Ron Doreen Other [facility] Other Start: 01-18-2022 Office outpatient vi sit 25 minutes Ron Martinez [facility] Start: 05-21-2017 End: 05-22-2017 Ambulatory DEFAULT PHYSICIAN Facility:[facility] Procedures Date Procedure Procedure Detail Performing Clinician [...] DERM [address] [place] [address] Lavonne Longoria MD [address] [place], [place] [id number] [facility] Start: 01-16-2025 Tobacco Screening Tobacco Screening [facility] Start: 11-16-2024 End: 11-16-2024 Patient encounter procedure 11/16/2024 9:50 AM EST Office Visit [facility] [address] [place] [address] Lorraine Mayer MD [address] [place] [address] [facility] Start: 09-28-2024 End: 09-28-2024 Patient encounter procedure 09/28/2024 11:30 AM EST Procedure Visit [facility] [address] [place] [id number] Ga Lai DPM [address] [place] [address] [facility] Start: 07-13-2024 End: 07-13-2024 Patient encounter procedure 07/13/2024 9:20 AM EDT Office Visit [facility] [address] [place] [address] Lorraine Mayer MD [address] [place] [address] Type 2 diabetes mellitus with hyperglycemia, with long-term 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 ([facility]) [facility] Comment on above: Type 2 diabetes diony itus with hyperglycemia, with long-term 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 (CMS/HCC) Start: 06-07-2024 COVID-19 Vaccine ( season) COVID-19 Vaccine ( season) [facility] Start: 06-07-2024 Influenza vaccination [facility] Start: 03-19-2024 Adult BMI Screening Adult BMI Screen ing [facility] Start: 03-19-2024 Tobacco Screening Tobacco Screening [facility] Start: 06-07-2023 COVID-19 Vaccine ( season) COVID-19 Vaccine ( season) [facility] Start: 06-07-2023 Influenza vaccination Influenza Vacc ine [facility] Start: 12-28-2021 Depression Screening Depression Scre ening [facility] Start: 2009 Fall Risk Screening Fall Risk Screen ing [facility] Start: 1994 Administration of varicella zoster vaccine Zoster (Shingles) Vaccine (1 of 2) [facility] Start: 12-15-1963 DTaP,Tdap and Td Vaccines (1 - Tdap) DTaP,Tdap and Td Vaccines (1 - Tdap) [facility] Start: 1962 Adult BMI Follow Up Plan Adult BMI Follow Up Plan [facility] Start: 1956 Depression Screening Depression Scre ening [facility] Start: 1944 Medicare Annual Well ness Visit Medicare Annual Wellness Visit [facility] Immunizations Immunization Date Immunization Notes Care Provider Fa cility 07-10-2022 unknown vaccine or immune globulin Lorraine Mayer MD Work Phone: [facility] 07-20-2021 unknown vaccine or immune globulin Lorraine Mayer MD Work Phone: [facility] 07-18-2020 Seasonal trivalent influenza vaccine, adjuvanted, preservative free Luis Kb PA-C Work Phone: [facility] 07-18-2020 influenza virus vacc ine, unspecified formulation Luis Kb PA-C Work Phone: [facility] 07-22-2019 Seasonal trivalent influenza vaccine, adjuvanted, preservative free Luis Kb PA-C Work Phone: [facility] 07-20-2019 influenza, injectabl e, quadrivalent, preservative free Lorraine Mayer MD Work Phone: [facility] 07-14-2018 Seasonal trivalent influenza vaccine, adjuvanted, preservative free Luis Kb PA-C Work Phone: [facility] 07-15-2017 pneumococcal conjuga te vaccine, 13 valent Luis Kb PA-C Work Phone: [facility] [facility] 07[facility]2017 influenza, high dose seasonal, preservative-free Luis Kb PA-C Work Phone: [facility] 07-25-2016 influenza, high dose seasonal, preservative-free Luis Kb PA-C Work Phone: [facility] 07-11-2015 influenza, high dose seasonal, preservative-free Luis Kb PA-C Work Phone: [facility] 07-16-2014 influenza, seasonal, injectable Luis [facility]b [facility]-C [facility]2013 influenza, seasonal, injectable Luis Kb PA-C Work Phone: [facility] [employer] [facility] 08-08-2012 influenza virus vacc ine, unspecified formulation Luis Kb PA-C Work Phone: [facility] [employer] 08-08-2012 pneumococcal polysaccharide vaccine, 23 valent Luis Kb PA-C Work Phone: [facility] [employer] [facility] 07-11-2011 influenza virus vacc ine, unspecified formulation Luis Kb PA-C [facility] Phone[facility] 08-15-2010 influenza virus vacc ine, unspecified formulation Luis Kb PA-C Work Phone: [facility] [employer] 07-26-2009 influenza virus vacc ine, unspecified formulation Luis Kb PA-C Work Phone: [facility] [employer] 08-04-2008 influenza virus vacc ine, unspecified formulation Luis Kb PA-C Work Phone: [facility] [employer] 08-13-2007 influenza virus vacc ine, unspecified formulation Luis Kb PA-C Work Phone: [facility] [employer] 08-11-2004 influenza virus vacc ine, unspecified formulation Luis Kb PA-C Work Phone: [facility] [employer] 08-09-2003 influenza virus vacc ine, unspecified formulation Luis Kb PA-C Work Phone: [facility] [employer] [facility] 08-09-2003 pneumococcal polysaccharide vaccine, 23 valent Luis Kb PA-C Work Phone: [facility] [employer] [facility] Payers Date Payer Category Payer Medicare [id number] 2021 Medicare HMO [employer] MEDICARE [id number] 1960 Medicare [id number] 2.16.840.1.409556.19 1945 Unknown [id number] 2.16.840.1.911786.3.579.2.593 1944 Unknown [id number] 2.16.840.1.567270.3.579.2.593 1944 Unknown [id number] 2.16.840.1.275872.3.579.2.593 1944 Unknown [id number] 2.16.840.1.720719.3.579.2.593 1944 Unknown [id number] 2.16.840.1.341239.3.579.2.593 1944 Unknown [id number] 2.16.840.1.924197.3.579.2.593 1944 Unknown [id number] 2.16.840.1.422500.3.579.2.593 1944 Unknown [id number] 2.16.840.1.842576.3.579.2.593 1944 Unknown [id number] 2.16.840.1.983139.3.579.2.593 1944 Unknown [id number] 2.16.840.1.287642.3.579.2.593 1944 Unknown [id number] 2.16.840.1.214375.3.579.2.593 1944 Unknown [id number] 2.16.840.1.474263.3.579.2.593 1944 Unknown [id number] 2.16.840.1.134798.3.579.2.593 1944 Unknown [id number] 2.16.840.1.392740.3.579.2.593 1944 Unknown [id number] 2.16.840.1.459731.3.579.2.593 1944 Unknown [id number] 2.16.840.1.062935.3.579.2.593 1944 Unknown [id number] 2.16.840.1.526620.3.579.2.1286 1944 Unknown [id number] 2.16.840.1.275589.3.579.2.1259 1944 Unknown [id number] 2.16.840.1.458764.3.579.2.1259 1944 Unknown [id number] 2.16.840.1.565860.3.579.2.1259 1944 Unknown [id number] 2.16.840.1.071627.3.579.2.1259 1944 Unknown [id number] 2.16.840.1.384518.3.579.2.1259 1944 Unknown [id number] 2.16.840.1.960481.3.579.2.1259 1944 Unknown [id number] 2.16.840.1.103687.3.579.2.1259 1944 Unknown [id number] 2.16.840.1.337442.3.579.2.1259 1944 Unknown [id number] 2.16.840.1.350128.3.579.2.1259 1944 Unknown [id number] 2.16.840.1.737815.3.579.2.1259 1944 Unknown [id number] 2.16.840.1.112644.3.579.2.1259 Unknown Social History Date Type Detail Facility Unknown if ever smoked [facility] Other Start: 12-28-2020 End: 01-17-2024 Sex Assigned At [facility] Start: 09-20-2022 End: 01-17-2024 Tobacco smoking status NHIS Ex-smoker [facility] End: 10-07-1969 History of tobacco use Current smoker [facility] End: 10-07-1969 History of tobacco use Cigarette Smoker [facility] Start: 09-20-2022 End: 01-17-2024 Tobacco use and exposure Smokeless tobacco non-user [facility] Start: 03-19-2023 End: 01-17-2024 Alcohol intake Ex-drinker (finding) [facility] [employer] [facility] Start: 12-28-2020 End: 01-17-2024 History of Social function [facility] Do you belong to any clubs or organizations such as latter-day groups, unions, fraternal or athletic groups, or school groups? No [facility] Are you now , , , , never or living with a partner? [facility] How hard is it for y ou to pay for the very basics like food, housing, medical care, and heating Not hard at all [facility] Do you feel stress - tense, restless, nervous, or anxious, or unable to sleep at night because your mind is troubled all the time - these days [OSQ] Not at all [facility] Start: 1945 Sex Assigned At Not on file [facility] [employer] [facility] Start: 06-25-2024 Alcoholic beverage intake Not Asked [facility] Start: 10-21-2023 Alcohol Comment caffeine intake: 1-2 cups per day [facility] Start: 05-21-2017 Sex Female (finding) [facility] [employer] [facility] Goals Date Patient Goal Desired Activity /State Personal health goal Comment on above: Formatting of this n ote might be different from the original. Evaluation of progress towards goal: return home with homecare and support from [facility], children and grandchildren Clinical Notes 01-18-2022 to 09-05-2024 Telephone Encounter - Bridgett Hoffman LPN - 09/05/2024 8:00 AM ESTTelephone Encounter - Bridgett Hoffman LPN - 09/05/2024 8:00 AM Jimy Mayer MD - 07/13/2024 9:20 AM EDT Note Date & Type Note Facility 09-05-2024 Miscellaneous Notes Asad 01/17/24 Cmp 01/01/24 documented in this encounter [facility] 09-05-2024 Telephone encounter Note Asad 01/17/24 Cmp 01/01/24 [facility] 07-13-2024 History of Present illness Narrative Kylah [...] said last GFR around 30 with her media analytics manager. Interim History: 03/2023 Follow-up visit on 03/12/2023 [...] she states GFR is 30, per her media analytics manager. Interim History: 08/24 Followup visit on 08/25/18 [...] reading of her . Lab done in [facility] BUN 28/creatinine 1.43, GFR 36, total cholesterol [...] MG capsule 1 capsule, Every 12 hours kudxohuzrmwv-ipha-hvqighjs-folic acid (Centrum) chewable tablet 1 tablet, Oral, [...] Chronic kidney disease, stage III (moderate) (HCC) (CMS/[facility]) Current use of insulin (CMS/HCC) Diabetes (CMS/HCC) Frozen shoulder GERD (gastroesophageal reflux disease) Gout 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CMS/HCC) HLD (hyperlipidemia) (CMS/HCC) HTN (hypertension) (CMS/HCC) Hypoglycemia Hypothyroidism (CMS/HCC) Obesity with body mass index (BMI) of 30.0 to 39.9 Squamous cell skin cancer Thyroid disease (CMS/HCC) Type 2 diabetes mellitus with other diabetic kidney complication (CMS/HCC) Vitamin D deficiency Past Surgical History: Procedure [...] hyperglycemia, with long-term 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 ([facility]) - POCT glucose manually resulted We will [...] months (around 11/13/2024). documented in this encounter [facility] 05-11-2024 Note [facility] Cardiology Clinic Note Chief Complaint: Patient here for follow up [facility] discharge back in February 2024. She was [...] kidney disease, Coronary artery disease, Diabetes mellitus ([facility]), Hyperlipidemia, and Hypertension. Surgical History [...] ventricular gram/pressure Indications (more content not included)... [facility] 02-10-2024 Note [facility] Cardiology Clinic Note Chief Complaint: Patient here to re-establish care. She was recently admitted to [facility] for hypertension. Had CABG since her last [...] longstanding diabetic. PAST MEDICAL HISTORY: Diabetes mellitus ([facility]) Hypertensive urgency Arthritis Dyspnea Chest pain Unstable angina ([facility]) Obesity (BMI 30-39.9) H/O four vessel coronary artery bypass graft Paroxysmal atrial fibrillation ([facility]) Atherosclerosis of [place] coronary artery of [place] heart without angina pectoris Obesity (BMI 30-39.9) [...] Referring Physician Kassie Nicole MD (Primary) Anastasia Burch DO Procedures Coronary angiogram and left ventricular [...] office She is to follow-up with her media analytics manager given her chronic kidney disease Return to clinic in 3 months or sooner should problems arise Carlie Catherine MD (more content not included)... [facility] 11-18-2023 Evaluation note Encounter Date Diagnosis [...] potassium improved with dietary restriction and Lasix. [facility] 01-29-2024 Evaluation note* Encounter Date Diagnosis Assessment Notes Treatment Notes Treatment Clinical Notes Oct, Anemia of renal disease (ICD-10 - D63.1) Oct, CKD (chronic kidney disease) stage 4, GFR 15-29 ml/min (ICD-10 - N18.4) [facility] 01-09-2024 Evaluation note* Encounter Date Diagnosis [...] potassium improved with dietary restriction and Lasix. [facility] 12-04-2023 Evaluation note* Encounter Date Diagnosis [...] 4, GFR 15-29 ml/min (ICD-10 - N18.4) [facility] 11-21-2023 Evaluation note* Encounter Date Diagnosis Assessment Notes Treatment Notes Treatment Clinical Notes Aug, Anemia of renal disease (ICD-10 - D63.1) Aug, CKD (chronic kidney disease) stage 4, GFR 15-29 ml/min (ICD-10 - N18.4) [facility] 11-09-2023 Evaluation note* Encounter Date Diagnosis [...] of kidney mass hydronephrosis or kidney stones. [facility] 10-26-2023 Evaluation note* Encounter Date Diagnosis [...] potassium improved with dietary restriction and Lasix. [facility] 09-18-2023 Evaluation note* Encounter Date Diagnosis [...] potassium improved with dietary restriction and Lasix. [facility] 08-31-2023 Evaluation note* Encounter Date Diagnosis [...] potassium improved with dietary restriction and Lasix. [facility] 07-25-2023 Evaluation note* Encounter Date Diagnosis [...] to normal with dietary restriction and Lasix. [facility] 07-01-2023 Evaluation note* Encounter Date Diagnosis Assessment Notes Treatment Notes Treatment Clinical Notes Apr, CKD (chronic kidney disease) stage 4, GFR 15-29 ml/min (ICD-10 - N18.4) Apr, Anemia of renal disease (ICD-10 - D63.1) [facility] Other 06-27-2023 Evaluation note* Encounter Date Diagnosis [...] to normal with dietary restriction and Lasix. [facility] Other 06-01-2023 Evaluation note* Encounter Date Diagnosis [...] potassium diet and provide information about it. [facility] Other 03-16-2023 Evaluation note* Encounter Date Diagnosis [...] to Continue Vit D 5000 units daily [facility] 01-30-2023 Evaluation note* Encounter Date Diagnosis [...] to Continue Vit D 5000 units daily [facility] 12-22-2022 Evaluation note* Encounter Date Diagnosis [...] to Continue Vit D 5000 units daily [facility] 11-16-2022 Evaluation note* Encounter Date Diagnosis [...] to Continue Vit D 5000 units daily [facility] 08-04-2022 Evaluation note* Encounter Date Diagnosis Assessment Notes Treatment Notes Treatment Clinical Notes May, Hypertensive chronic kidney disease with stage 1 through stage 4 chronic kidney disease, or unspecified chronic kidney disease (ICD-10 - I12.9) [facility] 08-02-2022 Evaluation note* Encounter Date Diagnosis [...] to Continue Vit D 5000 units daily [facility] 07-19-2022 Evaluation note* Encounter Date Diagnosis Assessment Notes Treatment Notes Treatment Clinical Notes Apr, Hypertensive chronic kidney disease with stage 1 through stage 4 chronic kidney disease, or unspecified chronic kidney disease (ICD-10 - I12.9) [facility] Other 04-14-2022 Evaluation note* Encounter Date Diagnosis [...] to take Vit D 1000 units daily [employer] Other Evaluation noteNo [facility] [employer] Other Evaluation note* Diagnosis Atherosclerosis of [place] coronary artery of [place] heart without angina 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 Hypertensive urgency Shortness of breath Paroxysmal atrial fibrillation ([facility]) Atrial fibrillation Localized edema Edema documented [facility] Diagnosis Type 2 diabetes mellitus with hyperglycemia, with long-term 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 ([facility])- Primary Vitamin D deficiency Microalbuminuria Proteinuria Hyperlipemia, mixed ([facility]/HCC) Mixed hyperlipidemia Primary hypertension (CMS/HCC) Unspecified essential hypertension Insulin long-term use ([facility]) Encounter for long-term (current) use of insulin 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[facility]) Chronic lymphocytic thyroiditis Encounter for dietary consultation Chronic renal disease, stage IV ([facility]) Chronic kidney disease, Stage IV (severe) documented in this encounter [facility] general Narrative - Reported* Type Description Date [...] History SEE ABOVE Hospitalization History COVID 09/2020 [facility] [employer] [employer] general Narrative - Reported* Type Description Date [...] History SEE ABOVE Hospitalization History COVID 09/2020 [facility] [employer] general Narrative - Reported* Type Description Date [...] History SEE ABOVE Hospitalization History COVID 09/2020 [facility] general Narrative - [facility]No[employer] Other [facility] general Narrative - Reported* Type Description Date [...] History SEE ABOVE Hospitalization History COVID 09/2020 [facility] Other InstructionsNot on filedocumented in this encounter [facility] SystemInstructionsNot on filedocumented in this encounter [facility] Summary Purpose Family History No Family History Records FoundNo Family History Records FoundNo Family History Records FoundNo Family History Records FoundNo Family History Records Found Advance Directives Latest Code Status on File Code Status Date Activated Date Inactivated Comments Full Code 12/28/2020 2:33 PM 01/03/2021 7:38 PM Date Activated Date Inactivated Comments 12/28/2020 2:33 PM 01/03/2021 7:38 PM Additional Source Comments INFORMATION SOURCE (unrecogn ized section and content) DATE CREATED AUTHOR 04/02/2018 [facility] DATE CREATED AUTHOR AUTHOR'S ORGANIZ ATION 01/27/2023 [facility] DATE CREATED AUTHOR AUTHOR'S ORGANIZ ATION 01/18/2024 [facility] DATE CREATED AUTHOR AUTHOR'S ORGANIZ ATION 05/12/2024 [facility] DATE CREATED AUTHOR AUTHOR'S ORGANIZ ATION 07/14/2024 [facility] EPIC REASON FOR VISIT (unrecogniz ed section and content) Reason Comments Med Refill Reason Comments Diabetes Mellitus Follow-up Care Teams (unrecognized sec tion and content) Route Sales Person Relationship Specialty Start Date End Date Dhruv Rubi MD [address] [place] [address] PCP - General Family Medicine 10/20/20 Route Sales Person Relationship Specialty Start Date End Date Dhruv Rubi MD [address] [place] [address] PCP - General Family Medicine 10/22/23 Route Sales Person Relationship Specialty Start Date End Date Dhruv Rubi MD [address] [place] [address] PCP - General Family Medicine 10/22/23 Route Sales Person Relationship Specialty Start Date End Date Dhruv Rubi MD PCP - General Family Medicine 10/20/20 FOR [...] BE BASED ON THE PRIMARY CLINICAL RECORDS. [facility]. provides no warranty or guarantee of the accuracy or completeness of information in this document.
--- NOTE | 2024-09-20 15:13 | XR_ITS ---
The [address] [address] Patient Name: KYLAH BERGER MRN: [id number] date: 1945 Sex: F Assigned Patient Location: ER Current Patient Location: ER Accession/Order Number: [id number] Exam Date: 09/20/2024 15:28 Report Date: 09/20/2024 15:58 At the request of: LUIS FLORES Procedure: XR chest 1V FRONTAL CHEST; 09/20/2024 3:28 PM EST Clinical History:cough, fever Comparison: 03/01/2024 . AP portable upright film. Again, status post a median sternotomy. No apparent change osseous structures. No change cardiac and mediastinal silhouettes or gisell. Slight hypoventilation at the bases. No focal infiltrate. No pleural effusion or failure. XR/XR chest 1V IMPRESSION: 1. No focal infiltrate. Slight hypoventilation at the bases. Electronically authenticated by: SOLOMON BETH Date: 09/20/2024 15:58
--- NOTE | 2024-09-20 15:13 | ECG_ITS ---
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
--- NOTE | 2024-09-20 15:15 | ED.GENADUL1 ---
HPI HPI - General Adult General Chief complaint: Weakness Stated complaint: GENERAL WEAKNESS Time Seen by Provider: 09/20/24 15:07 Source: patient and family Mode of arrival: walk-in Limitations: no limitations History of Present Illness HPI narrative: 78-year-old female presents to the ER from home for complaint of fever nausea and generalized weakness. Patient developed symptoms last Saturday was seen by PCP and diagnosed with urinary tract infection urine culture was E. coli last on 09/04. Patient states she just finished cefdinir today. She has positive nausea, but no vomiting or diarrhea, she reports feeling generally weak. She denies any chest pain or shortness of breath she has had a cough that is nonproductive that has been new in recent days. Patient denies any dysuria complains of mild lower abdominal discomfort but denies any symptoms at rest. She did not eat today but notes that her blood sugars have been in the 112's. Patient does use insulin and has a history of renal disease. Patient states her kidney doctor attempted to change her antibiotic but her family doctor insisted that she stay on it. Patient denies any confusion she did not take any medication prior to arrival for her fever. Onset (ago): week(s) Location: Denies head or face Radiation: Denies non-radiation Severity: mild Quality: Reports aching; Denies burning Pain Consistency: Reports intermittent Relieving factors: Reports none Exacerbating factors: Reports none Associated symptoms: Reports fever/chills and weakness Treatments prior to arrival: Reports none Related Data Home Medications ?Medication ?Instructions ?Recorded ?Confirmed atorvastatin 80 mg tablet 80 mg PO .QHS 03/17/23 09/20/24 insulin aspart U-100 100 unit/mL 12 unit subcut DAILY 03/17/23 09/20/24 (3 mL) subcutaneous pen (Novolog FlexPen U-100 Insulin aspart) magnesium oxide 400 mg (241.3 mg 400 mg PO TID 03/17/23 09/20/24 magnesium) tablet pantoprazole 40 mg tablet,delayed 40 mg PO .QD 03/17/23 09/20/24 release ferrous sulfate 325 mg (65 mg 325 mg PO BID 12/31/23 09/20/24 iron) tablet furosemide 20 mg tablet 20 mg PO DAILY 01/22/24 09/20/24 allopurinol 100 mg tablet 50 mg PO QDAY 09/20/24 09/20/24 cefdinir 300 mg capsule 600 mg PO Q12H 09/20/24 09/20/24 Previous Rx's ?Medication ?Instructions ?Recorded insulin detemir U-100 100 unit/mL 26 unit (0.26 mL) subcut BID #15 mL 01/24/24 (3 mL) subcutaneous pen (Levemir FlexPen) aspirin 81 mg chewable tablet 81 mg PO QD #30 tabs 03/05/24 carvedilol 25 mg tablet 25 mg PO BIDWM@0700,1900 #60 tabs 03/05/24 clonidine HCl 0.1 mg tablet 0.1 mg PO Q4H PRN Hypertension #60 03/05/24 tabs hydralazine 25 mg tablet 25 mg PO TID take after breakfast, 03/05/24 lunch and supper #90 tabs isosorbide mononitrate 120 mg 120 mg PO QAM take after breakfast 03/05/24 tablet,extended release 24 hr #30 tabs levothyroxine 100 mcg capsule 100 mcg PO DAILY #30 caps 03/05/24 liothyronine 5 mcg tablet 5 mcg PO ACB #60 tabs 03/05/24 ondansetron HCl 4 mg tablet 4 mg PO Q6H PRN nausea and 09/20/24 vomiting #12 tabs Allergies Allergy/AdvReac Type Severity Reaction Status Date / Time amlodipine (From Norvasc) Allergy Mild itchy Verified 09/20/24 14:49 Iodinated Contrast Media Allergy Unknown Unconscious Verified 09/20/24 14:49 amoxicillin (From Augmentin) Allergy Rash Verified 09/20/24 14:49 clavulanic acid (From Allergy Rash Verified 09/20/24 14:49 Augmentin) sulfamethoxazole (From Allergy Rash Verified 09/20/24 14:49 Bactrim) trimethoprim (From Bactrim) Allergy Rash Verified 09/20/24 14:49 Opioid HPI Opioid Management Most Recent Opioid Data: Last Pain Scale 0 03/04/24 06:00 03/04/24 Last ORT Total Score 0 03/01/24 23:16 03/01/24 Last ORT Risk Category Low Risk 03/01/24 23:16 03/01/24 Review of Systems ROS Constitutional Reports: fever and fatigue; Denies: chills or change in weight Eyes Denies: change in vision Ears, nose, mouth, and throat Denies: throat pain, neck pain, throat swelling or difficulty swallowing Cardiovascular Denies: chest pain or palpitations Respiratory Reports: cough; Denies: shortness of breath or wheezing Gastrointestinal Reports: nausea; Denies: abdominal pain Genitourinary Denies: painful urination or urinary frequency Musculoskeletal Reports: joint pain; Denies: back pain, neck pain or extremity pain Integumentary/Breast Denies: rash, itching, redness or skin pain Neurological Denies: headache, numbness in extremities or weakness in extremities Psychiatric Denies: anxiety or mood swings Endocrine Denies: excessive urination [facility] Medical History (Updated 09/20/24 @ 17:06 by JOSÉ MIGUEL Trent) Chest pain ?R07.9 - Chest pain, unspecified (ICD-10) Hypertensive urgency ?I16.0 - Hypertensive urgency (ICD-10) Iron deficiency anemia, unspecified ?D50.9 - Iron deficiency anemia, unspecified (ICD-10) Hypothyroidism (acquired) ?E03.9 - Hypothyroidism, unspecified (ICD-10) (HFpEF) heart failure with preserved ejection fraction ?I50.30 - Unspecified diastolic (congestive) heart failure (ICD-10) Hypertensive emergency ?I16.1 - Hypertensive emergency (ICD-10) Chronic kidney disease ?N18.9 - Chronic kidney disease, unspecified (ICD-10) Hypertensive urgency ?I16.0 - Hypertensive urgency (ICD-10) Chest pain ?R07.9 - Chest pain, unspecified (ICD-10) Hypertensive urgency ?I16.0 - Hypertensive urgency (ICD-10) Raynaud disease ?I73.00 - Raynaud's syndrome without gangrene (ICD-10) Basal cell carcinoma of skin of nose ?C44.311 - Basal cell carcinoma of skin of nose (ICD-10) Elevated cholesterol ?E78.00 - Pure hypercholesterolemia, unspecified (ICD-10) Chronic kidney disease ?N18.9 - Chronic kidney disease, unspecified (ICD-10) HTN (hypertension) ?I10 - Essential (primary) hypertension (ICD-10) Diabetes ?E11.9 - Type 2 diabetes mellitus without complications (ICD-10) CAD (coronary artery disease) ?I25.10 - Atherosclerotic heart disease of [place] coronary artery without angina pectoris (ICD-10) Surgical History S/P CABG x 1 ?Z95.1 - Presence of aortocoronary bypass graft (ICD-10) H/O shoulder surgery ?Z98.890 - Other specified postprocedural states (ICD-10) History of cholecystectomy ?Z90.49 - Acquired absence of other specified parts of digestive tract (ICD-10) History of hysterectomy ?Z90.710 - Acquired absence of both cervix and uterus (ICD-10) Family History Sister Family history of myocardial infarction Family history of hypertension Brother Family history of myocardial infarction Family history of diabetes mellitus Brother Family history of hypertension Father Family history of cancer Social History Smoking status: Former smoker Highest level of school completed/degree received: 12th grade, no diploma Little interest or pleasure in doing things: not at all Feeling down, depressed, or hopeless: not at all Exam Narrative Exam Narrative: Nurses notes and vital signs reviewed and patient is not hypoxic. General: The patient appears well and in no apparent distress. Patient is resting comfortably on cart. Skin: Warm, dry, no pallor noted. Head: Normocephalic, atraumatic Neck: Supple, trachea mid-line, no tenderness, no lymphadenopathy Eye: Pupils are equal, round and reactive to light, EOMI Ears, Nose, Mouth, and Throat: TM are clear, normal light reflex, oral mucosa is moist, no posterior oropharynx erythema or hypertrophy, uvula is mid-line Cardiovascular: Regular Rate and Rhythm Respiratory: Patient is in no distress, no accessory muscle use, lungs are clear to auscultation, no wheezing, rales or rhonchi. Chest Wall: no tenderness Back: non-tender, no CVA tenderness Musculoskeletal: normal ROM, no tenderness, no swelling GI: Normal bowel sounds, minimal tenderness right lower and left lower quadrant no guarding rebound rigidity, no masses appreciated. Neurological: A&O x4 Psychiatric: Cooperative Constitutional Vital Signs, click to edit/add: Last Vital Signs Temp 100.2 F 09/20/24 14:49 Pulse 81 09/20/24 17:10 Resp 15 09/20/24 17:10 BP 102/56 09/20/24 17:00 Pulse Ox 94 L 09/20/24 17:10 O2 Del Method Room Air 09/20/24 14:49 Course Vital Signs Vital signs: Vital Signs Temperature 100.2 F 09/20/24 14:49 Pulse Rate 86 09/20/24 14:49 Respiratory Rate 16 09/20/24 14:49 Blood Pressure 139/60 09/20/24 14:49 Pulse Oximetry 97 09/20/24 14:49 Oxygen Delivery Method Room Air 09/20/24 14:49 Temperature 100.2 F 09/20/24 14:49 Pulse Rate 81 09/20/24 17:10 Respiratory Rate 15 09/20/24 17:10 Blood Pressure 102/56 09/20/24 17:00 Pulse Oximetry 94 L 09/20/24 17:10 Oxygen Delivery Method Room Air 09/20/24 14:49 Medical Decision Making MDM Narrative Medical decision making narrative: Reviewed last urine culture less than 25K for E. coli, patient finished cefdinir today, has low-grade fever generalized weak sensation with no focal deficit and nausea. Patient states she has been drinking fluids but decreased appetite denies any change in bowel movements she is without any chest pain or shortness of breath but does have a nonproductive cough she is given Tylenol 1 g for fever labs will be checked given her history of renal insufficiency, antibiotic use and subjective weakness/ Given Zofran 4 mg and p.o. fluid challenge Patient reevaluated, feeling improved that she is seated on the edge of the bed conversing with family. We discussed her CT scan with her lower abdominal pain no signs of infectious process kidneys unremarkable. We discussed her urinalysis no culture recommended. We reviewed that she just finished her antibiotics and would recommend holding on any additional antibiotics she will focus on increasing her protein intake in diet to help with her nutrition she will contact her family doctor for a close follow-up to revisit symptoms patient thankful. The patient is to followup with primary care physician in next 2-3 days or to return to the emergency department should any of the signs or symptoms worsen or new symptoms develop. Patient had questions answered. The patient agrees with the following Diagnosis and Treatment plan and the patient will be discharged home. Lab Data Lab results reviewed: Yes I reviewed the patient's lab results Labs: Lab Results 09/20/24 09/20/24 09/20/24 Range/Units 15:05 15:34 16:05 WBC 15.3 H (4.0-11.0) 10^3/uL RBC 3.33 L (4.20-5.40) 10^6/uL Hgb 10.2 L (12.0-16.0) g/dL Hct 30.8 L (36.0-48.0) % MCV 92.5 (81.0-99.0) fL MCH 30.6 (26.7-34.0) pg MCHC 33.1 (29.9-35.2) g/dL RDW 15.2 H (11.0-15.0) % Plt Count 250 (150-450) 10^3/uL MPV 8.9 L (9.5-13.5) fL Neut % (Auto) 87.0 H (43.0-75.0) % Lymph % (Auto) 7.0 L (20.5-60.0) % [place] % (Auto) 4.5 (1.7-12.0) % Eos % (Auto) 0.7 L (0.9-7.0) % Baso % (Auto) 0.2 (0.2-2.0) % Neut # (Auto) 13.3 H (1.4-6.5) 10^3/uL Lymph # (Auto) 1.1 L (1.2-3.8) 10^3/uL [place] # (Auto) 0.7 (0.3-0.8) 10^3/uL Eos # (Auto) 0.1 (0.0-0.7) 10^3/uL Baso # (Auto) 0.0 (0.0-0.1) 10^3/uL Abs Immat Gran (auto) 0.09 H (0.00-0.03) 10^3/uL Imm/Tot Granulo (auto) 0.6 H (0.0-0.5) % Sodium 135 L (136-145) mmol/L Potassium 4.7 (3.5-5.1) mmol/L Chloride 99 (98-107) mmol/L Carbon Dioxide 25.4 (21.0-32.0) mmol/L Anion Gap 15.3 BUN 42.0 H (7.0-18.0) mg/dL Creatinine 2.08 H (0.55-1.02) mg/dL Est GFR ( Amer) 28 L (>=60 mL/min/1.73m^2) Est GFR (Non-Af Amer) 23 L (>=60 mL/min/1.73m^2) BUN/Creatinine Ratio 20.2 Glucose 183 H (74-106) mg/dL Lactate 1.7 (0.4-2.0) mmol/L Calcium 9.0 (8.5-10.1) mg/dL Total Bilirubin 0.8 (0.2-1.0) mg/dL AST 34 (15-37) U/L ALT 51 (14-59) U/L Alkaline Phosphatase 82 (46-116) U/L Troponin I High Sens 12.6 (4.0-51.3) pg/mL Total Protein 7.0 (6.4-8.2) g/dL Albumin 3.1 L (3.4-5.0) g/dL Globulin 3.9 g/dL Albumin/Globulin Ratio 0.8 TSH & Free T4 Interp 1.297 (0.358-3.740) uIU/mL Urine Color Yellow (YELLOW) Urine Clarity Clear (CLEAR) Urine pH 5.5 (5.0-9.0) Ur Specific [place] 1.020 (1.005-1.025) Urine Protein 100 A (NEG/TRACE) mg/dL Urine Glucose (UA) Negative (NEGATIVE) mg/dL Urine Ketones Negative (NEGATIVE) mg/dL Urine Occult Blood Negative (NEGATIVE) Urine Nitrite Negative (NEGATIVE) Urine Bilirubin Negative (NEGATIVE) Urine Urobilinogen 0.2 (0.2-1.0) EU/dL Ur Leukocyte Esterase Negative (NEGATIVE) Urine RBC 0-2 (0-2) #/HPF Urine WBC None seen (NONE SEEN) #/HPF Ur Squamous Epith Cells Moderate A (NONE/RARE) #/LPF Urine Crystals None seen (None Seen) #/HPF Urine Bacteria Trace A (NONE SEEN) #/HPF Urine Casts None seen (NONE SEEN) #/LPF Urine Mucus None seen (NONE SEEN) Ur Culture Indicated? No Influenza Type A Ag Negative Influenza Type B Ag Negative SARS-CoV-2 Ag (CV2AG) Negative (NEGATIVE) Imaging Data CT scan - abdomen: Radiologist's impression: ITS Impressions Chest X-Ray 09/20/24 15:13 IMPRESSION: 1. No focal infiltrate. Slight hypoventilation at the bases. Electronically authenticated by: SOLOMON BETH Date: 09/20/2024 15:58 Abdomen/Pelvis CT 09/20/24 15:44 IMPRESSION: No acute abnormalities in the abdomen or pelvis. Electronically authenticated by: ISABEL MEZA Date: 09/20/2024 16:20 ECG Data Attestation: I personally reviewed and interpreted this ECG as follows: Interpretation: EKG interpretation: Emergency Department physician interpretation, normal sinus rhythm 83 , no ectopy, no ST segment elevation, normal axis. Discharge Plan Discharge Chief Complaint: Weakness Clinical Impression: Generalized weakness, Nausea Patient Disposition: Home, Self-Care Time of Disposition Decision: 17:06 Condition: Good Prescriptions / Home Meds: New ondansetron HCl 4 mg tablet 4 mg PO Q6H PRN (Reason: nausea and vomiting) Qty: 12 0RF No Action carvedilol 25 mg Tablet 25 mg PO BIDWM@0700,1900 Qty: 60 0RF clonidine HCl 0.1 mg Tablet 0.1 mg PO Q4H PRN (Reason: Hypertension) Qty: 60 11RF hydralazine 25 mg Tablet 25 mg PO TID Qty: 90 11RF liothyronine 5 mcg Tablet 5 mcg PO ACB Qty: 60 0RF aspirin 81 mg Tablet,Chewable 81 mg PO QD Qty: 30 11RF levothyroxine 100 mcg capsule 100 mcg PO DAILY Qty: 30 11RF isosorbide mononitrate 120 mg tablet extended release 24 hr 120 mg PO QAM Qty: 30 11RF atorvastatin 80 mg tablet 80 mg PO .QHS insulin aspart U-100 [Novolog FlexPen U-100 Insulin] 100 unit/mL (3 mL) insulin pen 12 unit SUBCUT DAILY Rx Instructions: 12 units am, 16units at lunch and 22 units in pm magnesium oxide 400 mg (241.3 mg magnesium) tablet 400 mg PO TID pantoprazole 40 mg tablet,delayed release (DR/EC) 40 mg PO .QD ferrous sulfate 325 mg (65 mg iron) tablet 325 mg PO BID furosemide 20 mg tablet 20 mg PO DAILY Levemir FlexPen 100 unit/mL (3 mL) Insulin Pen 26 unit subcut BID Qty: 15 11RF cefdinir 300 mg capsule 600 mg PO Q12H Patient Comments: last dose this AM allopurinol 100 mg Tablet 50 mg PO QDAY Print Language: Persian Instructions: Weakness (ED) Additional Instructions: Recheck in 1-2 days Zofran at pharmacy for Nausea Referrals: Merrick Rubi MD [Primary Care Provider] - As soon as possible
[2024-09-20 15:23] LABS: Influenza Virus A Antigen Negative; Influenza Virus B Antigen Negative; Internal Control Within Normal Limits; SARS-CoV-2 Ag NEGATIVE (NEGATIVE)
[2024-09-20] MEDS: ACETAMINOPHEN 500 MG TABLET 1000 MG PO (15:23)
[2024-09-20] MEDS: ONDANSETRON 4 MG RAPDIS TABLET PO (15:23)
[2024-09-20 15:40] LABS: Basophils Percent Auto 0.2 % (0.2-2.0); Eosinophils Absolute Auto 0.1 10^3/uL (0.0-0.7); Eosinophils Percent Auto 0.7 % (0.9-7.0); Hematocrit 30.8 % (36.0-48.0); Hemoglobin 10.2 g/dL (12.0-16.0); Immature Granulocytes Abs Auto 0.09 10^3/uL (0.00-0.03); Immature Granulocytes Pct Auto 0.6 % (0.0-0.5); Lymphocytes Absolute Auto 1.1 10^3/uL (1.2-3.8); Mean Corpuscular HGB Conc 33.1 g/dL (29.9-35.2); Mean Corpuscular Hemoglobin 30.6 pg (26.7-34.0); Mean Corpuscular Volume 92.5 fL (81.0-99.0); Mean Platelet Volume 8.9 fL (9.5-13.5); Monocytes Absolute Auto 0.7 10^3/uL (0.3-0.8); Monocytes Percent Auto 4.5 % (1.7-12.0); Neutrophils Absolute Auto 13.3 10^3/uL (1.4-6.5); Platelet Count 250 10^3/uL (150-450); Red Blood Count 3.33 10^6/uL (4.20-5.40); Red Cell Distribution Width 15.2 % (11.0-15.0); White Blood Count 15.3 10^3/uL (4.0-11.0)
--- NOTE | 2024-09-20 15:44 | CT_ITS ---
The [address] [address] Patient Name: KYLAH BERGER MRN: [id number] date: 1945 Sex: F Assigned Patient Location: ER Current Patient Location: ER Accession/Order Number: [id number] Exam Date: 09/20/2024 15:52 Report Date: 09/20/2024 16:20 At the request of: LUIS FLORES Procedure: CT abdomen pelvis wo con EXAM: CT scan of the abdomen and pelvis without contrast. Dose reduction technique used: Automated exposure control and/or adjustment of the mA and/or kV according to patient size and/or use of iterative reconstruction technique. REASON FOR EXAM: pain llq/ rlq fever COMPARISON: None FINDINGS: Small esophageal hiatal hernia. Cholecystectomy. Small right renal cyst. Colonic diverticulosis. Hysterectomy. L1 compression fracture with mild height loss has a chronic appearance. No renal, ureteral or bladder calculi. No hydronephrosis. No evidence of appendicitis. No free fluid in the abdomen or pelvis. No free intraperitoneal air. No dilated or thickened loops of small bowel or colon. Liver, pancreas, spleen, bilateral kidneys, and bilateral adrenal glands are otherwise unremarkable within the limitations of noncontrast CT. No lymphadenopathy in the abdomen or pelvis. Remainder unremarkable. CT/CT abdomen pelvis wo con IMPRESSION: No acute abnormalities in the abdomen or pelvis. Electronically authenticated by: ISABEL MEZA Date: 09/20/2024 16:20
[2024-09-20 15:56] LABS: Alanine Aminotransferase 51 U/L (14-59); Albumin Globulin Ratio 0.8; Albumin Level 3.1 g/dL (3.4-5.0); Alkaline Phosphatase 82 U/L (46-116); Anion Gap 15.3; Aspartate Amino Transferase 34 U/L (15-37); BUN Creatinine Ratio 20.2; Bilirubin Total 0.8 mg/dL (0.2-1.0); Carbon Dioxide 25.4 mmol/L (21.0-32.0); Chloride 99 mmol/L (98-107); Estimated GFR (African America 28 (>=60 mL/min/1.73m^2); Estimated GFR (Non-African Ame 23 (>=60 mL/min/1.73m^2); Globulin 3.9 g/dL; Glucose 183 mg/dL (74-106); Potassium 4.7 mmol/L (3.5-5.1); Sodium 135 mmol/L (136-145)
[2024-09-20 15:57] LABS: Lactate/Lactic Acid 1.7 mmol/L (0.4-2.0)
[2024-09-20 16:05] LABS: Troponin I High Sensitivity 12.6 pg/mL (4.0-51.3)
[2024-09-20 16:06] LABS: TSH W/ REFLEX FT4 1.297 uIU/mL (0.358-3.740)
[2024-09-20 16:14] LABS: Bilirubin Urine NEGATIVE (NEGATIVE); Blood Urine NEGATIVE (NEGATIVE); Clarity Urine CLEAR (CLEAR); Color Urine YELLOW (YELLOW); Glucose Urine UA NEGATIVE (NEGATIVE); Ketones Urine NEGATIVE (NEGATIVE); Leukocyte Esterase Urine NEGATIVE (NEGATIVE); Nitrite Urine NEGATIVE (NEGATIVE); Protein Urine 100 mg/dL (NEG/TRACE); Urobilinogen Urine 0.2 EU/dL (0.2-1.0); pH Urine 5.5 (5.0-9.0)
[2024-09-20 16:19] LABS: Urine Microscopic Indicated YES
[2024-09-20 16:26] LABS: Bacteria Urine TRACE #/HPF (NONE SEEN); Cast Seen? NONE SEEN #/LPF (NONE SEEN); Crystals Seen? None Seen #/HPF (None Seen); Mucus Urine NONE SEEN (NONE SEEN); RBC Urine 0-2 #/HPF (0-2); Squamous Epithelial Cell Urine MODERATE #/LPF (NONE/RARE); Urine Culture Indicated NO; WBC Urine NONE SEEN #/HPF (NONE SEEN)
== END 2024-09-20 17:46 | disposition home or self-care (01) ==
PROVIDERS: Personal Emergency Response Attendant; Emergency Provider Student in an Organized Health Care Education/Training Program; PCP Family Medicine
DX: R53.1 Weakness (principal); R11.0 Nausea; R10.30 Lower abdominal pain, unspecified; Z87.440 Personal history of urinary (tract) infections; Z95.1 Presence of aortocoronary bypass graft; Z90.49 Acquired absence of other specified parts of digestive tract; Z90.710 Acquired absence of both cervix and uterus; Z87.891 Personal history of nicotine dependence; R50.9 Fever, unspecified
CPT/HCPCS: 36415; 71045; 74176; 80053; 81001; 83605; 84443; 84484; 85025; 87804; 87811; 93005; 99285; Q0162

== ENCOUNTER 2024-11-17 21:53 | Emergency (ER) | payer MEDICARE, SELFPAY ==
[2024-11-17] VITALS (10 sets, daily range): BP systolic 201–260; BP diastolic 78–108; PULSE 64–76; TEMP 36.8; O2SAT 96–98; BMI 30.2
--- OUTSIDE RECORDS SUMMARY | 2024-11-17 21:58 | XMS_ITS | CCD ---
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 Role Phone PHYSICIAN, DEFAULT Unavailable Unavailable [...] RON Attending Unavailable DOREEN, RON Admitting Unavailable Merrick Rubi MD Primary Care Provider [phone] THUAN LUCAS Attending Unavailable MERRICK RUBI Referring Unavailable MERRICK RUBI Primary Care Unavailable ELTAHAWY, EHAB Attending Unavailable ELTAHAWKavita, EHAB Attending Unavailable Merrick Rubi MD Primary Care Provider [phone] Merrick Rubi MD Primary Care Provider [phone] LORRAINE MAYER Attending Unavailable PETITTSanthosh, GREG A Attending Unavailable GA LAI Attending Unavailable PETITTSanthosh, GREG A Attending Unavailable GA LAI Attending Unavailable PETITTSanthosh, GREG A Attending Unavailable PETITTSanthosh, GREG A Attending Unavailable PETITTSanthosh, GREG A Attending Unavailable GA LAI Attending Unavailable LEYLALORRAINE BALLARD Attending Unavailable LEYLALORRAINE BALLARD F Referring Unavailable GA LAI Attending Unavailable Allergies Allergy Classification Reported Allergen(s) Allergy Type Date of Onset Reaction(s) Facility (20 sources) amLODIPine; Translations: [AMLODIPINE] Drug Allergy 03-28-20 05 Rash, Unknown [facility] (20 sources) Amoxicillin / Clavulanate Drug Allergy 11-23-19 Rash [facility] Other (20 sources) Contrast media Propensity to adverse reactions Unknown [facility] Other (2 sources) Doxazosin; Translations: [doxazosin] Drug Allergy Unknown [facility] Other (20 sources) Sulfamethoxazole / Trimethoprim Drug Allergy 11-23-19 [facility] Other (20 sources) Doxazosin; Translations: [DOXAZOSIN] Drug Allergy 11-23-19 Unknown [facility] Other (9 sources) Amoxicillin / Clavulanate; Translations: [Augmentin] Drug Allergy 11-16-19 16 Unknown [facility]ository (1 source) amLODIPine Drug Allergy 04-25-20 14 [facility] Repository (1 source) Sulfamethoxazole / Trimethoprim Drug Allergy 03-09-20 13 [facility] (16 sources) Iodinated Contrast Media; Translations: [IODINATED CONTRAST MEDIA] Propensity to adverse reactions to drug 11-23-19 Other [facility] (2 sources) Sulfamethoxazole / Trimethoprim; Translations: [SULFAMETHOXAZOLE-T RIMETHOPRIM] Drug Allergy 08-04-20 15 [facility] Repository (17 sources) AMOXICILLIN-POT CLAVULANATE; Translations: [AMOXICILLIN-POT CLAVULANATE] Propensity to adverse reactions to drug (disorder) 11-23-19 Unknown [facility] (16 sources) Sulfamethoxazole; Translations: [SULFAMETHOXAZOLE] Drug Allergy 03-12-20 Unknown [facility] Repository (15 sources) Amoxicillin Drug Allergy 03-12-20 23 Unknown [facility] (15 sources) Doxazosin Drug Allergy 03-12-20 Unknown [facility] (15 sources) Trimethoprim Drug Allergy 03-12-[address] [facility] Medications Current Medications Medication Drug Class(es) [...] Active alendronic acid 70 mg oral tablet (9 sources) Bisphosphonate take 1 tablet by mouth [...] total) by mouth in the morning. Active aspirin 81 mg delayed release oral tablet (20 sources) Platelet Aggregation Inhibitor, Nonsteroidal Anti-inflammatory Drug Start: 01-11-2021 take 1 tablet by mouth once daily aspirin 81 mg Indications: Hypertensive urgency , Shortness of breath , H/O four vessel coronary artery bypass graft , Atherosclerosis of [place] coronary artery of [place] heart without angina pectoris , Paroxysmal atrial [...] (LIPITOR) 80 mg tablet Indications: Atherosclerosis of [place] coronary artery of [place] heart without angina pectoris , H/O four vessel coronary artery bypass graft , Hypertensive urgency , Shortness of breath , Paroxysmal atrial fibrillation (CMS-HCC) , Localized edema take 1 tablet by mouth nightly 90 tablet 3 12/25/2023 Active ATORVASTATIN BASSAM CIUM PO Atorvastatin Calcium Active betamethasone 0.5 mg/ml topical cream (17 sources) Corticosteroid Start: 05-25-2024 End: 06-04-2024 betamethasone dipropionate 0.05 % cream Indications: [...] 25 mg oral tablet (20 sources) alpha-Adrenergic Za, beta-Adrenergic Za Start: 01-17-2024 take 2 tablets by mouth [...] 180 tablet 3 01/17/2024 Active Start: 08-06-2022 End: 01-17-2024 take 1 tablet by mouth once in [...] total) before bedtime. 180 tablet 3 08/06/2022 01/17/2024 Discontinued (Reorder) take 1 tablet by enzo th in the morning carvedilol (Coreg) 25 MG tablet Take 1 tablet by mouth in the morning and 1 tablet in the evening. Take with meals. Active CARVEDILOL PO Ca rvedilol Active ciprofloxacin 500 mg oral tablet (3 sources) Quinolone Antimicrobial take 1 tablet by mouth every twelve hours Cipro 500 MG 1 tablet Orally every 12 hrs Active diclofenac sodium 75 mg delayed release oral tablet (9 sources) Nonsteroidal Anti-inflammatory Drug take 1 tablet [...] Orally every 12 hours Active epoetin [id number] 93611 UNT/ML Injectable Solution [Retacrit] (14 sources) Retacrit 17198 U NIT/ML as directed Injection Active ferrous [...] tablet Orally bid for 90 day(s) Active hydroCHLOROthiazide (15 sources) Thiazide Diuretic HYDROCHLOROTHI AZIDE PO hydroCHLOROthiazide Active hydrocortisone acetate 25 mg rectal suppository (15 sources) Corticosteroid hydrocortisone ( Anusol-HC) 25 MG suppository insert 1 suppository by rectal route 2 times every day for 2 weeks Rectal Active 3 ml insulin aspart, human 100 unt/ml pen injector (20 sources) Insulin Analog Start: 4 insulin aspart (NovoLOG FLEXPEN) 100 UNIT/ML pen Inject 10-15 Units under the skin in the morning and 10-15 Units at noon and 10-15 Units in the evening. Inject with meals. 10-12-15 according to meal size (plus sliding scale ISS #2) expect up to 80 Units total daily use. 06/15/2024 Active insulin aspart ( NovoLOG FLEXPEN) 100 UNIT/ML pen inject by subcutaneous route as per insulin sliding scale protocol Subcutaneous Active inject 10 [IU] by rice bcutaneous [...] mononitrate 30 mg extended release oral tablet (2 sources) Nitrate Vasodilator Start: 01-17-2024 take 1 tablet by mouth once daily isosorbide mononitrate (IMDUR) 30 mg 24 hr tablet Take 1 tablet (30 mg total) by mouth daily. 90 tablet 3 01/17/2024 Active labetalol hydrochloride 200 mg oral tablet (15 sources) beta-Adrenergic Za take 2 tablets by mouth in the morning labetalol (Normodyne) 200 MG tablet Take 2 tablets by mouth in the morning and 2 tablets before bedtime. Active LABETALOL HCL PO labetalol Active Levemir FlexTouch 100 UNIT/M L (11 [...] the morning. Active take 1 tablet by mouth before [...] Daily Active take 2 tablets by mo [facility] every twenty-four hours Liothyronine Sodium 5 MCG 2 tablets on a n empty stomach Orally Once a day Active take 2 tablets by mo [facility] every twenty-four hours lisinopril 20 mg [...] for 90 day(s) Jan, Active Start: 01-15-2022 End: 01-17-2024 take 1 tablet by mouth in the morning lisinopriL (PRINIVIL,ZESTRIL) 5 mg tablet Take 1 tablet (5 mg total) by mouth in the morning. 30 tablet 11 01/15/2022 01/17/2024 Discontinued take 1 tablet by mouth once bebo y lisinopril 40 MG tablet take 1 tablet by oral route every day Oral Active take 1 tablet by enzo every twenty-four hours Lisinopril 20 MG 1 tablet Orally Once a day for 90 days Active Magnesium (15 sources) MAGNESIUM PO Mag nesium Active magnesium [...] 90 Active minocycline 100 mg oral capsule (15 sources) Tetracycline-class Drug take 1 capsule b y mouth every twelve hours minocycline 100 MG capsule 1 capsule every 12 (twelve) hours. Active Multi For Her 50+ - (20 sources) Multi For Her 50 + - Orally Active tcstiaexgzwu-oumf-pfomyarr-f olic acid (Centrum) chewable tablet (15 sources) multivitamin-iro p-nwtyamxm-ivddy acid (Centrum) chewable tablet Chew 1 tablet in the morning. Active pantoprazole 40 mg delayed release oral tablet (20 sources) Proton Pump Inhibitor S t a r t : 0 3 - 1 5 - 2 0 2 1 take 1 tablet by mouth in the morning pantoprazole (PROTONIX) 40 mg EC tablet Take 1 tablet (40 mg total) by mouth in the morning. 12/19/2020 Active PANTOPRAZOLE SOD IUM PO Pantoprazole Sodium Active 12 hr ranolazine 500 mg extended release oral tablet (9 sources) Anti-anginal take 1 tablet by mouth every twelve hours in the morning ranolazine (Ranexa) 500 MG 12 hr tablet Take 1 tablet by mouth in the morning and 1 tablet before bedtime. Do not crush, chew, or split.. Active retacrit 53645 unit/ml solution (5 sources) Retacrit 25597 U NIT/ML as directed Injection Active Sennosides-Docusate Sodium 8 .6-50 MG (20 sources) take 1 tablet by enzo th every twelve hours in the evening as needed take 1 tablet by enzo th every twelve hours in the evening as needed Sennosides-Docusate Sodium 8.6-50 MG 1 tablet in the evening as needed Orally every 12 hours Active Thyroid (LEVOTHYROXINE-LIOTH YRONINE PO) (5 sources) Thyroid (LEVOTHY ROXINE-LIOTHYRONINE PO) Levothyroxine-Liothyronine Active Vitamin D-3 125 MCG (5000 UT ) (20 sources) Vitamin D-3 125 MCG (5000 UT) as directed Orally Active Completed/Discontinued Medications Medication Drug Class(es) Dates Sig (Normalized) Sig (Original) cholecalciferol 0.125 mg oral tablet (3 sources) Vitamin D End: 01-17-2024 take 1 tablet by mouth in the morning cholecalciferol, vitamin D3, 5,000 units tablet Take 1 tablet (5,000 Units total) by mouth in the morning. 01/17/2024 Discontinued (Therapy completed) cloNIDine hydrochloride 0.1 mg oral tablet (3 sources) Central alpha-2 Adrenergic Agonist Start: 01-01-2024 End: 01-17-2024 take 2 tablets by mouth in the morning, then take 2 tablets by mouth at bedtime cloNIDine (CATAPRES) 0.1 mg tablet Take 2 tablets (0.2 mg total) by mouth in the morning and 2 tablets (0.2 mg total) before bedtime. 01/01/2024 01/17/2024 Discontinued cloNIDine (Catap res) 0.1 MG tablet Take 0.1 mg by mouth if needed for high blood pressure Active furosemide 20 mg oral tablet (20 sources) Loop Diuretic End: 01-17-2024 take 1 tablet by mouth twice daily furosemide (LASIX) 20 mg tablet Take 1 tablet (20 mg total) by mouth 2 (two) times a day. 01/17/2024 Discontinued (Therapy completed) take 1 tablet by mouth once bebo y Furosemide 20 mg TAKE 1 TABLET BY MOUTH ONCE DAILY for 90 Active meloxicam 15 mg oral tablet (1 source) Nonsteroidal Anti-inflammatory Drug Start: 12-30-2023 End: 01-17-2024 take 1 tablet by mouth in the morning meloxicam (MOBIC) 15 mg tablet Take 1 tablet (15 mg total) by mouth in the morning. 12/30/2023 01/17/2024 Discontinued MULTIVITAMIN ORAL (3 sources) End: 01-17-2024 MULTIVITAMIN ORAL Take by mouth daily. 01/17/2024 Discontinued (Therapy completed) MULTIVITAMIN ORA L Take by mouth daily. Active MULTIVITAMIN ORA L Take by mouth daily. 0 Active RETACRIT INJECTION (20 sources) Start: 11-18-2023 RETACRIT INJEC TION Nov, 1000 mL Start: 11-04-2023 RETACRIT INJEC [...] UNSPECIFIED] Onset: 3 Episodic Administrative/socia l admission (4 sources) Patient encounter status; Translations: [Dietary counseling and surveillance] 07-13-2024 Episodic Cardiac dysrhythmias (8 sources) Paroxysmal atrial fibrillation; Translations: [Paroxysmal atrial fibrillation] Onset: 1 12-21-2023 Chronic Chronic kidney disease (20 sources) Chronic kidney disease stage 3; Translations: [Chronic kidney disease, stage 3 (moderate)] Onset: 2 Resolved: 2 Chronic Congestive heart failure; nonhypertensive (1 source) Unspecified diastolic (congestive) heart failure; Translations: [UNSPECIFIED DIASTOLIC HEART FAILURE] Onset: 2 Chronic Coronary atherosclerosis and other heart disease (17 sources) Coronary atherosclerosis; Translations: [Atherosclerotic heart disease of [place] coronary artery without angina pectoris] Onset: 1 [...] Resolved: 2 Chronic Diabetes mellitus without complication (6 sources) Diabetes mellitus; Translations: [Type 2 diabetes mellitus without complications] 11-23-2020 Chronic Disorders of lipid metabolism (8 sources) Hyperlipidemia; Translations: [Other hyperlipidemia] Onset: 2 01-15-2022 Chronic Essential hypertension (20 sources) Hypertensive disorder; Translations: [Essential (primary) hypertension] Onset: 1 05-11-2021 Chronic Fluid and electrolyte disorders (8 sources) Hyperkalemia Episodic Genitourinary symptoms and ill-defined conditions (5 sources) Dysuria; Translations: [Microalbuminuria] Onset: 2 07-13-2024 [...] kidney disease] Onset: 1 Resolved: 2 Chronic Mycoses (2 sources) Onychomycosis; Translations: [Tinea unguium] 06-25-2024 Episodic Nutritional deficiencies (4 sources) Vitamin D deficiency; Translations: [Vitamin D deficiency, unspecified] 07-13-2024 Chronic Osteoarthritis (4 sources) Arthritis; Translations: [Unspecified osteoarthritis, unspecified site] 11-23-2020 Chronic Other aftercare (4 sources) Long-term 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; 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] 07-13-2024 Episodic Other circulatory disease (2 sources) Arterial, arteriole and capillary disease; Translations: [Disorder of arteries and arterioles, unspecified] Chronic Other connective tissue disease (4 sources) Pain in right foot; Translations: [PAIN IN RIGHT FOOT] Onset: 3 Episodic Other connective tissue disease (1 source) Pain in left foot; Translations: [PAIN IN LEFT FOOT] Onset: 3 Episodic Other connective tissue disease (2 sources) Pain in both feet; Translations: [Pain in right foot] 06-25-2024 Episodic Other diseases of kidney and ureters (20 sources) Secondary hyperparathyroidism; Translations: [Secondary hyperparathyroidism of renal origin] Chronic Other diseases of kidney and ureters (15 sources) Secondary hyperparathyroidism of renal origin; Translations: [SEC HYPERPARATHYROIDISM RENAL ORIGN] Onset: 2 Resolved: 2 Chronic Other lower respiratory disease (7 sources) Dyspnea; Translations: [Shortness of breath] Onset: 4 12-21-2023 Episodic Other nutritional; endocrine; and metabolic disorders (20 sources) Hypomagnesemia; Translations: [Hypomagnesemia] Chronic Other nutritional; endocrine; and metabolic disorders (20 sources) Obese class I; Translations: [Body mass index (BMI) 31.0-31.9, adult] Chronic Other nutritional; endocrine; and metabolic disorders (8 sources) Body mass index 30+ - obesity; Translations: [Obesity, unspecified] Onset: 1 01-11-2021 Chronic Other nutritional; endocrine; and metabolic disorders (4 sources) Obesity; Translations: [Obesity, unspecified] Onset: 2 01-15-2022 Chronic Other screening for suspected conditions (not mental disorders or infectious disease) (4 sources) Encounter for screening mammogram for malignant neoplasm of breast; Translations: [ENC SCR MAMMO MALIG NEOPLASM BREAST] Onset: 3 Episodic Other skin disorders (2 sources) Callosity; Translations: [Corns and callosities] 06-25-2024 Episodic Residual codes; unclassified (1 source) Family [...] [Localized edema] Onset: 4 Episodic Thyroid disorders (4 sources) Pema thyroiditis; Translations: [Autoimmune thyroiditis] 07-13-2024 [...] Translations: [Weakness] Onset: 09-13-2022 Episodic Mood disorders (4 sources) Mood disorders Onset: 12-28-2020 12-28-2020 Nonspecific chest pain (2 sources) Chest pain; Translations: [Chest pain, unspecified] 11-23-2020 Episodic Other circulatory disease (4 sources) Hemorrhage, not elsewhere classified; Translations: [HEMORRHAGE NOT ELSEWHERE CLASSIFIED] Onset: 10-24-2022 Episodic Other circulatory disease (1 source) Hypotension, unspecified; Translations: [HYPOTENSION UNSPECIFIED] Onset: 09-13-2022 Episodic Other fractures (4 sources) Collapsed vertebra, not elsewhere classified, lumbar region, subsequent encounter for fracture with delayed healing; Translations: [COLLAPSED VERT NEC LUMB SUB DLAY HL] Onset: 06-25-2022 Episodic Other inflammatory condition of skin (2 sources) Granuloma annulare; Translations: [Granuloma annulare] 06-04-2024 Episodic Other lower respiratory disease (1 source) Shortness of breath; Translations: [Shortness of breath] Onset: 11-23-2020 Episodic Other skin disorders (2 sources) Eruption; Translations: [Rash and other nonspecific skin eruption] 05-25-2024 Episodic Residual codes; unclassified (1 source) Procedure and treatment not carried out due to patient leaving prior to being seen by health care provider; Translations: [PROC AND TX NOT CARRIED OUT PT LEAVE] Onset: 10-26-2022 Episodic Residual codes; unclassified (2 sources) Localized edema; Translations: [Localized edema] 12-21-2023 Episodic Unclassified (1 source) CONTACT W/AND (SUSP) EXPOS COVID-19; Translations: [CONTACT W/AND (SUSP) EXPOS COVID-19] Onset: 06-18-2022 Unclassified (1 source) OTHER LOW BACK PAIN; Translations: [OTHER LOW BACK PAIN] Onset: 05-21-2022 Results Test Name Value Interpretation Reference Range Facility Glucose (Bld) [Mass/Vol]Orde red By: Maria Antonia Mo on 11-16-2024 Glucose Blood, POC 220 mg/dL [facility] - Hematology and Cell countson 11-16-2024 HbA1c (Bld) [Mass fraction] 7 % [facility] No Panel InformationOrdered By: Maria Antonia Mo on 11-16-2024 [facility] Glucose (Bld) [Mass/Vol]Orde red By: Maria Antonia Mo on 07-13-2024 Glucose Blood, POC 180 mg/dL [facility] No Panel Informationon 05-25 Type of biopsy: punch Informed consent: discussed and consent obtained Informed consent comment: The risks and benefits were discussed. Risks include, but are not limited to, bleeding, infection, scarring, pain, & nerve damage. An opportunity to ask questions prior to the procedure was permitted and questions were answered. Patient was prepped and draped in usual sterile fashion: Area cleansed with alcohol. Anesthesia: the lesion was anesthetized in a standard fashion Anesthetic: 1% lidocaine w/ epinephrine 1-100,000 buffered w/ 8.4% NaHCO3 Punch size: 3 mm (A biopsy by punch method was performed using a dermal punch) Suture size: 4-0 Suture type: nylon Suture type comment: Hemostasis was achieved with suture. Hemostasis achieved with: suture Outcome: patient tolerated procedure well Post-procedure details: sterile dressing applied and wound care instructions given Post-procedure details comment: Emphasized the need to contact clinic for any signs of infection, uncontrollable bleeding, or complications. Dressing type: bandage Additional details: Amount of lidocaine used: 0.5 cc Number of sutures used: 2 Specimen sent for: H&E Photo taken yes [facility] No Panel InformationOrdered By: Philomena Salter on 05-25-2024 [facility] Office Visiton 05-11-2024 Follow-up visit [id number] Kylah Robin 1945 F Date Provider Department Center 05/11/2024 [id number], EHAB BH CARD [facility] No family history on file Level of Service:37776 [place] OFFICE/OUTPATIENT ESTABLISHED MOD MDM 30 MIN Normal [facility] Office Visiton 02-10-2024 Follow-up visit [id number] Kylah Robin 1945 F Date Provider Department Center 02/10/2024 Yassine-CARLIE CATHERINE [facility] No family history on file Level of Service:95716 [place] OFFICE/OUTPATIENT ESTABLISHED MOD MDM 30 MIN Normal [facility] POCT EKGon 01-17-2024 [employer] [facility] AND PLATELon 2022 Hematocrit (Bld) [Volume fraction] 28.8 % Critically low 36.0-48.0 [facility] Comment on above: Performed By: #### H H #### [facility] [address] [place] [address] Dr. Ember Teague Hemoglobin (Bld) [Mass/Vol] 9.6 g/dL Critically low 12.0-16.0 [facility] Comment on above: Performed By: #### H H #### [facility] [address] [place] [address] Dr. Ember Teague MCH (RBC) [Entitic mass] 30.7 pg Normal 26.7-34.0 [facility] Comment on above: Performed By: #### H H #### [facility] [address] [place] [address] Dr. Ember Teague MCHC (RBC) [Mass/Vol] 33.3 g/dL Normal 29.9-35.2 [facility] Comment on above: Performed By: #### H H #### [facility] [address] [place] [address] Dr. Ember Teague MCV (RBC) [Entitic vol] 92.0 fL Normal 81.0-99.0 [facility] Comment on above: Performed By: #### H H #### [facility] [address] [place] [address] Dr. Ember Teague PLT 214 103/ul Normal 150-450 [facility] Comment on above: Performed By: #### H H #### [facility] [address] [place] [address] Dr. Ember Teague RBC 3.13 106/ul Critically low 4.20-5.40 [facility] Comment on above: Performed By: #### H H #### [facility] [address] [place] [address] Dr. Ember Teague WBC 7.4 103/ul Normal 4.0-11.0 [facility] Comment on above: Performed By: #### H H #### [facility] [address] [place] [address] Dr. Ember Teague MAGNESIUMon 01-22-2023 Magnesium [Mass/Vol] 1.8 mg/dL Normal 1.8-2.4 [facility] Comment on above: Performed By: #### M G, RENAL #### [facility] [address] [place] [address] Dr. Ember Teague RENAL FUNCTION PANELon 01-22 Albumin [Mass/Vol] 3.6 g/dL Normal 3.4-5.0 [facility] Comment on above: Performed By: #### M G, RENAL #### [facility] [address] [place] [address] Dr. Ember Teague Calcium [Mass/Vol] 9.7 mg/dL Normal 8.5-10.1 [facility] Comment on above: Performed By: #### M G, RENAL #### [facility] [address] [place] [address] Dr. Ember Teague Chloride [Moles/Vol] 105 mmol/L Normal 98-107 [facility] Comment on above: Performed By: #### M G, RENAL #### [facility] [address] [place] [address] Dr. Ember Teague CO2 [Moles/Vol] 22.6 mmol/L Normal 21.0-32.0 The [facility] Comment on above: Performed By: #### M G, RENAL #### [facility] [address] [place] [address] Dr. Ember Teague Creatinine [Mass/Vol] 2.18 mg/dL Critically high 0.55-1.02 [facility] Comment on above: Performed By: #### M G, RENAL #### [facility] [address] [address] [address] Ember Teague EGFR-AF TURKMEN 26 mL/min/1.73m2 Critically low >=60 [facility] Comment on above: Performed By: #### M G, RENAL #### [facility] [address] [address] [address] Ember Teague EGFR-NON AF TURKMEN 22 mL/min/1.73m2 Critically low >=60 [facility] Comment on above: Performed By: #### M G, RENAL #### [facility] [address] [address] [address] Ember Teague Glucose [Mass/Vol] 134 mg/dL Critically high 74-106 [facility] Comment on above: Performed By: #### M G, RENAL #### [facility] [address] [address] [address] Ember Teague Phosphate [Mass/Vol] 4.6 mg/dL Normal 2.6-4.7 [facility] Comment on above: Performed By: #### M G, RENAL #### [facility] [address] [address] [address] Ember Teague Potassium [Moles/Vol] 5.1 mmol/L Normal 3.5-5.1 [facility] Comment on above: Performed By: #### M G, RENAL #### [facility] [address] [address] [address] Ember Teague Sodium [Moles/Vol] 138 mmol/L Normal 136-145 [facility] Comment on above: Performed By: #### M G, RENAL #### [facility] [facility] [address] [address] [address] Ember Teague Urea nitrogen [Mass/Vol] 61.0 mg/dL Critically high 7.0-18.0 [facility] Comment on above: Performed By: #### M G, RENAL #### [facility] [address] [address] [address] Ember Teague MG MAMM SCREEN 3D MAY CADon 12-17-2022 MG MAMM SCREEN 3D MAY CAD Patient: KYLAH ROBIN Exam Date: 12/17/2022 : 1945 Gender:F Ordering : DR MERRICK RUBI . Admission #: [id number] Family : Order #: [id number] CLICK HERE TO VIEW EXAM RADIOLOGY REPORT PROCEDURE: MAMMOGRAM SCREENING 3D BILATERAL CAD COMPARISON: MG MAMM SCREEN 3D MAY CAD, 12/15/2021. INDICATIONS: Screening mammography Calculator Name NCI Breast Cancer Risk Assessment Tool 5 Year Breast Cancer Risk 3.90% Lifetime Breast Cancer Risk 6.90% Personal Breast Cancer No Personal Ovarian Cancer No Treatments None Family Cancers Grandmother-materna l with breast cancer at age 70; Daughter with breast cancer at age 35; Aunt-maternal with breast cancer at age 72; Father with lung cancer at age 62. LOCATION: [facility] BREAST COMPOSITION: Scattered areas fibroglandular [...] on 12/17/2022 at 11:59 Normal [facility] FERRITINon 12-10-2022 Ferritin [Mass/Vol] 681.0 ng/mL Critically high 8.0-252.0 [facility] Comment on above: Performed By: #### P THINT #### [facility] [address] [place] [address] Dr. Ember Teague HEMOGRAM AND PLATELon 2022 Hematocrit (Bld) [Volume fraction] 27.1 % Critically low 36.0-48.0 [facility] Comment on above: Performed By: #### C VDTBH #### [facility] [address] [place] [address] Dr. Ember Teague Hemoglobin (Bld) [Mass/Vol] 9.7 g/dL Critically low 12.0-16.0 [facility] Comment on above: Performed By: #### C VDTBH #### [facility] [address] [place] [address] Dr. Ember Teague MCH (RBC) [Entitic mass] 31.4 pg Normal 26.7-34.0 [facility] Comment on above: Performed By: #### C VDTBH #### [facility] [address] [place] [address] Dr. Ember Teague MCHC (RBC) [Mass/Vol] 35.8 g/dL Critically high 29.9-35.2 [facility] Comment on above: Performed By: #### C VDTBH #### [facility] [address] [place] [address] Dr. Ember Teague MCV (RBC) [Entitic vol] 87.7 fL Normal 81.0-99.0 [facility] Comment on above: Performed By: #### C VDTBH #### [facility] [address] [place] [address] Dr. Ember Teague PLT 218 103/ul Normal 150-450 [facility] Comment on above: Performed By: #### C VDTBH #### [facility] [address] [place] [address] Dr. Ember Teague RBC 3.09 106/ul Critically low 4.20-5.40 [facility] Comment on above: Performed By: #### C VDTBH #### [facility] [address] [place] [address] Dr. Ember Teague WBC 6.6 103/ul Normal 4.0-11.0 [facility] Comment on above: Performed By: #### C VDTBH #### [facility] [address] [place] [address] Dr. Ember Teague IRON AND TIBCon 12-10-2022 % SATURATION 30.2 % Normal [facility] Comment on above: Performed By: #### P THINT #### [facility] [address] [place] [address] Dr. Ember Teague Iron [Mass/Vol] 84.0 ug/dL Normal 50.0-170.0 [facility] Comment on above: Performed By: #### P THINT #### [facility] [address] [address] [address] Ember Teague TIBC DIRECT 278.0 ug/dL Normal 250.0-450.0 [facility] Comment on above: Performed By: #### P THINT #### [facility] [address] [place] [address] Dr. Ember Teague XR FOOT MAY MIN [...] APARICIO Date: 2022-11-20 14:03 Normal [facility] HEMOGRAM AND PLATELon 2022 Hematocrit (Bld) [Volume fraction] 27.7 % Critically low 36.0-48.0 [facility] Comment on above: Performed By: #### R ENAL #### [facility] [address] [place] [address] Dr. Ember Teague Hemoglobin (Bld) [Mass/Vol] 10.0 g/dL Critically low 12.0-16.0 [facility] Comment on above: Performed By: #### R ENAL #### [facility] [address] [place] [address] Dr. Ember Teague MCH (RBC) [Entitic mass] 31.6 pg Normal 26.7-34.0 [facility] Comment on above: Performed By: #### R ENAL #### [facility] [address] [place] [address] Dr. Ember Teague MCHC (RBC) [Mass/Vol] 36.1 g/dL Critically high 29.9-35.2 [facility] Comment on above: Performed By: #### R ENAL #### [facility] [address] [place] [address] Dr. Ember Teague MCV (RBC) [Entitic vol] 87.7 fL Normal 81.0-99.0 [facility] Comment on above: Performed By: #### R ENAL #### [facility] [address] [place] [address] Dr. Ember Teague PLT 182 103/ul Normal 150-450 [facility] Comment on above: Performed By: #### R ENAL #### [facility] [address] [place] [address] Dr. Ember Teague RBC 3.16 106/ul Critically low 4.20-5.40 [facility] Comment on above: Performed By: #### R ENAL #### [facility] [address] [place] [address] Dr. Ember Teague WBC 6.8 103/ul Normal 4.0-11.0 [facility] Comment on above: Performed By: #### R ENAL #### [facility] [address] [place] [address] Dr. Ember Teague PROF CHEM 8 (BAS METB)on Anion gap [Moles/Vol] 17.6 mmol/L Normal [facility] Comment on above: Performed By: #### C VDTBH #### [facility] [address] [place] [address] Dr. Ember Teague Calcium [Mass/Vol] 9.0 mg/dL Normal 8.5-10.1 [facility] Comment on above: Performed By: #### C VDTBH #### [facility] [address] [place] [address] Dr. Ember Teague Chloride [Moles/Vol] 104 mmol/L Normal 98-107 [facility] Comment on above: Performed By: #### C VDTBH #### [facility] [address] [place] [address] Dr. Ember Teague CO2 [Moles/Vol] 22.2 mmol/L Normal 21.0-32.0 [facility] Comment on above: Performed By: #### C VDTBH #### [facility] [address] [address] [address] Ember Teague Creatinine [Mass/Vol] 2.03 mg/dL Critically high 0.55-1.02 [facility] Comment on above: Performed By: #### C VDTBH #### [facility] [address] [address] [address] Ember Teague EGFR-AF TURKMEN 29 mL/min/1.73m2 Critically low >=60 [facility] Comment on above: Performed By: #### C VDTBH #### [facility] [address] [place] [address] Dr. Ember Teague EGFR-NON AF TURKMEN 24 mL/min/1.73m2 Critically low >=60 [facility] Comment on above: Performed By: #### C VDTBH #### [facility] [address] [place] [address] Dr. Ember Teague Glucose [Mass/Vol] 154 mg/dL Critically high 74-106 T [facility] Comment on above: Performed By: #### C VDTBH #### [facility] [address] [place] [address] Dr. Ember Teague Potassium [Moles/Vol] 4.8 mmol/L Normal 3.5-5.1 [facility] Comment on above: Performed By: #### C VDTBH #### [facility] [address] [place] [address] Dr. Ember Teague Sodium [Moles/Vol] 139 mmol/L Normal 136-145 [facility] Comment on above: Performed By: #### C VDTBH #### [facility] [address] [address] [address] Ember Teague Urea nitrogen [Mass/Vol] 43.0 mg/dL Critically high 7.0-18.0 [facility] Comment on above: Performed By: #### C VDTBH #### [facility] [address] [address] [address] Ember Teague Urea nitrogen/Creatinine [Mass ratio] 21.2 mg/mg Normal [facility] Comment on above: Performed By: #### C VDTBH #### [facility] [address] [place] [address] Dr. Ember Teague CULTURE SPUTUMon 10-24-2022 CULTURE SPUTUM Culture Observations: Beta lactamase positive Isolate 1 Haemophilus influenzae Moderate growth of Normal [facility] Comment on above: Performed By: #### R ENAL #### [facility] [address] [place] [address] Dr. Ember Teague SPUTUM GRAM STAINon 10-24-19 COMMENTS Normal [facility] Comment on above: Performed By: #### R ENAL #### [facility] [address] [place] [address] Dr. Ember Teague DIPHTHEROIDS Normal [facility] Comment on above: Performed By: #### R ENAL #### [facility] [address] [address] [address] Ember Teague EPITHELIALS >25 Normal [facility] Comment on above: Performed By: #### R ENAL #### [facility] [address] [place] [address] Dr. Ember Teague FUNGAL ELEMENTS Normal [facility] Comment on above: Performed By: #### R ENAL #### [facility] [address] [place] [address] Dr. Ember Teague GRAM NEG BACILLI Normal [facility] Comment on above: Performed By: #### R ENAL #### [facility] [address] [place] [address] Dr. Ember Teague GRAM NEG DIPPLOCOCCI FEW Normal [facility] Comment on above: Performed By: #### R ENAL #### [facility] [address] [place] [address] Dr. Ember Teague GRAM POS BACILLI FEW Normal [facility] Comment on above: Performed By: #### R ENAL #### [facility] [address] [place] [address] Dr. Ember Teague GRAM POSITIVE COCCI MANY Normal [facility] Comment on above: Performed By: #### R ENAL #### [facility] [address] [address] [address] Ember Teague WBC (Bld) [#/Vol] 10*3/uL Normal [facility] Comment on above: Performed By: #### R ENAL #### [facility] [address] [address] [address] Ember Teague XR CHEST 2 Von 10-24-2022 XR CHEST 2 V EXAMINATION: XR CHEST 2 V, , 10/24/2022 10:05 AM EST INDICATION: Acute bronchitis HISTORY: Ordering Provider Reason for Exam: Technologist Note: Additional: COMPARISON: Chest x-ray dated 11/17/2020. TECHNIQUE: Chest x-ray: Two views. FINDINGS: No pneumothorax, pleural effusion or focal airspace consolidation. Heart is normal in size. Patient is postmedian sternotomy. IMPRESSION: No acute cardiopulmonary process. Electronically authenticated by: ANGELINA BRISENO Date: 2022-10-24 16:22 Normal [facility] FERRITINon 09-18-2022 Ferritin [Mass/Vol] 612.0 ng/mL Critically high 8.0-252.0 [facility] Comment on above: Performed By: #### F ERR, FETIBC #### [facility] [address] [place] [address] Dr. Ember Teague HEMOGRAM AND PLATELon 2021 Hematocrit (Bld) [Volume fraction] 28.1 % Critically low 36.0-48.0 [facility] Comment on above: Performed By: #### C BC #### [facility] [address] [place] [address] Dr. Ember Teague Hemoglobin (Bld) [Mass/Vol] 9.7 g/dL Critically low 12.0-16.0 [facility] Comment on above: Performed By: #### C BC #### [facility] [address] [place] [address] Dr. Ember Teague MCH (RBC) [Entitic mass] 31.3 pg Normal 26.7-34.0 [facility] Comment on above: Performed By: #### C BC #### [facility] [address] [place] [address] Dr. Ember Teague MCHC (RBC) [Mass/Vol] 34.5 g/dL Normal 29.9-35.2 [facility] Comment on above: Performed By: #### C BC #### [facility] [address] [place] [address] Dr. Ember Teague MCV (RBC) [Entitic vol] 90.6 fL Normal 81.0-99.0 [facility] Comment on above: Performed By: #### C BC #### [facility] [address] [place] [address] Dr. Ember Teague PLT 183 103/ul Normal 150-450 [facility] Comment on above: Performed By: #### C BC #### [facility] [address] [place] [address] Dr. Ember Teague RBC 3.10 106/ul Critically low 4.20-5.40 [facility] Comment on above: Performed By: #### C BC #### [facility] [address] [place] [address] Dr. Ember Teague WBC 7.2 103/ul Normal 4.0-11.0 [facility] Comment on above: Performed By: #### C BC #### [facility] [address] [place] [address] Dr. Ember Teague IRON AND TIBCon 09-18-2022 % SATURATION 36.0 % Normal [facility] Comment on above: Performed By: #### F ERR, FETIBC #### [facility] [address] [place] [address] Dr. Ember Teague Iron [Mass/Vol] 77.0 ug/dL Normal 50.0-170.0 [facility] Comment on above: Performed By: #### F ERR, FETIBC #### [facility] [address] [place] [address] Dr. Ember Teague TIBC DIRECT 214.0 ug/dL Critically low 250.0-450.0 [facility] Comment on above: Performed By: #### F ERR, FETIBC #### [facility] [address] [address] [address] Ember Teague RENAL FUNCTION PANELon 09-18 Albumin [Mass/Vol] 3.7 g/dL Normal 3.4-5.0 [facility] Comment on above: Performed By: #### R ENAL #### [facility] [address] [address] [address] Ember Teague Calcium [Mass/Vol] 9.5 mg/dL Normal 8.5-10.1 [facility] Comment on above: Performed By: #### R ENAL #### [facility] [address] [address] [address] Ember Teague Chloride [Moles/Vol] 103 mmol/L Normal 98-107 [facility] Comment on above: Performed By: #### R ENAL #### [facility] [address] [place] [address] Dr. Ember Teague CO2 [Moles/Vol] 21.1 mmol/L Normal 21.0-32.0 [facility] Comment on above: Performed By: #### R ENAL #### [facility] [address] [address] [address] Ember Teague Creatinine [Mass/Vol] 1.85 mg/dL Critically high 0.55-1.02 [facility] Comment on above: Performed By: #### R ENAL #### [facility] [address] [place] [address] Dr. Ember Teague EGFR-AF TURKMEN 32 mL/min/1.73m2 Critically low >=60 [facility] Comment on above: Performed By: #### R ENAL #### [facility] [address] [address] [address] Ember Teague EGFR-NON AF TURKMEN 26 mL/min/1.73m2 Critically low >=60 [facility] Comment on above: Performed By: #### R ENAL #### [facility] [address] [address] [address] Ember Teague Glucose [Mass/Vol] 183 mg/dL Critically high 74-106 T [facility] Comment on above: Performed By: #### R ENAL #### [facility] [address] [address] [address] Ember Teague Phosphate [Mass/Vol] 3.7 mg/dL Normal 2.6-4.7 [facility] Comment on above: Performed By: #### R ENAL #### [facility] [address] [address] [address] Ember Teague Potassium [Moles/Vol] 4.9 mmol/L Normal 3.5-5.1 [facility] Comment on above: Performed By: #### R ENAL #### [facility] [address] [address] [address] Ember Teague Sodium [Moles/Vol] 138 mmol/L Normal 136-145 [facility] Comment on above: Performed By: #### R ENAL #### [facility] [address] [place] [address] Dr. Ember Teague Urea nitrogen [Mass/Vol] 40.0 mg/dL Critically high 7.0-18.0 [facility] Comment on above: Performed By: #### R ENAL #### [facility] [address] [place] [address] Dr. Ember Teague CULTURE URINEon 09-15-2022 CULTURE URINE Isolate 1 Citrobacter freundii >100,000 cfu/mL of ORGANISM 1 Citrobacter freundii ANTIBIOTIC M.I.C RX STATUS Piperacillin/Tazoba ctam <=4 S F Cefazolin >=64 R F Ceftazidime <=1 S F Ceftriaxone <=1 S F Ertapenem <=0.5 S F Imipenem <=0.25 S F Amikacin <=2 S F Gentamicin <=1 S F Tobramycin <=1 S F Ciprofloxacin <=0.25 S F Levofloxacin 0.5 S F Nitrofurantoin 32 S F Trimethoprim/Sulfam ethoxazole <=20 S F Normal [facility] Comment on above: Performed By: #### R ENAL #### [facility] [address] [place] [address] Dr. Ember Teague BNPon 09-11-2022 Natriuretic peptide B (Bld) [Mass/Vol] 408.0 pg/mL Normal <=1,800.0 [facility] Comment on above: Performed By: #### P THINT #### [facility] [address] [place] [address] Dr. Ember Teague CBC AUTO DIFFon 09-11-2022 BASO # 0.0 103/ul Normal 0.0-0.1 [facility] Comment on above: Performed By: #### C BC #### [facility] [address] [place] [address] Dr. Ember Teague Basophils/100 WBC (Bld) 0.3 % Normal 0.2-2.0 [facility] Comment on above: Performed By: #### C BC #### [facility] [address] [place] [address] Dr. Ember Teague EO # 0.1 103/ul Normal 0.0-0.7 [facility] Comment on above: Performed By: #### C BC #### [facility] [address] [place] [address] Dr. Ember Teague Eosinophils/100 WBC (Bld) 1.9 % Normal 0.9-7.0 [facility] Comment on above: Performed By: #### C BC #### [facility] [address] [place] [address] Dr. Ember Teague Erythrocyte distribution width (RBC) [Ratio] 15.2 % Critically high 11.0-15.0 [facility] Comment on above: Performed By: #### C BC #### [facility] [address] [place] [address] Dr. Ember Teague Hematocrit (Bld) [Volume fraction] 26.6 % Critically low 36.0-48.0 [facility] Comment on above: Performed By: #### C BC #### [facility] [address] [place] [address] Dr. Ember Teague Hemoglobin (Bld) [Mass/Vol] 9.0 g/dL Critically low 12.0-16.0 [facility] Comment on above: Performed By: #### C BC #### [facility] [address] [place] [address] Dr. Ember Teague IG # 0.02 10e3/ul Normal 0.00-0.03 [facility] Comment on above: Performed By: #### C BC #### [facility] [address] [place] [address] Dr. Ember Teague IG % 0.3 % Normal 0.0-0.5 [facility] Comment on above: Performed By: #### C BC #### [facility] [address] [place] [address] Dr. Ember Teague LYMPH # 1.9 103/ul Normal 1.2-3.8 [facility] Comment on above: Performed By: #### C BC #### [facility] [address] [place] [address] Dr. Ember Teague Lymphocytes/100 WBC (Bld) 32.4 % Normal 20.5-60.0 [facility] Comment on above: Performed By: #### C BC #### [facility] [address] [place] [address] Dr. Ember Teague MANUAL DIFF REQ NO Normal [facility] Comment on above: Performed By: #### C BC #### [facility] [address] [place] [address] Dr. Ember Teague MCH (RBC) [Entitic mass] 31.1 pg Normal 26.7-34.0 [facility] Comment on above: Performed By: #### C BC #### [facility] [address] [place] [address] Dr. Ember Teague MCHC (RBC) [Mass/Vol] 33.8 g/dL Normal 29.9-35.2 [facility] Comment on above: Performed By: #### C BC #### [facility] [address] [place] [address] Dr. Ember Teague MCV (RBC) [Entitic vol] 92.0 fL Normal 81.0-99.0 [facility] Comment on above: Performed By: #### C BC #### [facility] [address] [place] [address] Dr. Ember Teague MONO # 0.6 103/ul Normal 0.3-0.8 [facility] Comment on above: Performed By: #### C BC #### [facility] [address] [place] [address] Dr. Ember Teague Monocytes/100 WBC (Bld) 10.0 % Normal 1.7-12.0 [facility] Comment on above: Performed By: #### C BC #### [facility] [address] [place] [address] Dr. Ember Teague NEUT # 3.2 103/ul Normal 1.4-6.5 [facility] Comment on above: Performed By: #### C BC #### [facility] [address] [place] [address] Dr. Ember Teague Neutrophils/100 WBC (Bld) 55.1 % Normal 43.0-75.0 [facility] Comment on above: Performed By: #### C BC #### [facility] [address] [place] [address] Dr. Ember Teague Platelet mean volume (Bld) [Entitic vol] 9.4 fL Critically low 9.5-13.5 [facility] Comment on above: Performed By: #### C BC #### [facility] [address] [place] [address] Dr. Ember Teague PLT 196 103/ul Normal 150-450 [facility] Comment on above: Performed By: #### C BC #### [facility] [address] [place] [address] Dr. Ember Teague RBC 2.89 106/ul Critically low 4.20-5.40 [facility] Comment on above: Performed By: #### C BC #### [facility] [address] [place] [address] Dr. Ember Teague WBC 5.8 103/ul Normal 4.0-11.0 [facility] Comment on above: Performed By: #### C BC #### [facility] [address] [place] [address] Dr. Ember Teague PROF 14(COMP METB)on 022 Albumin [Mass/Vol] 3.7 g/dL Normal 3.4-5.0 [facility] Comment on above: Performed By: #### P THINT #### [facility] [address] [place] [address] Dr. Ember Teague Albumin/Globulin [Mass ratio] 1.0 {ratio} Normal [facility] Comment on above: Performed By: #### P THINT #### [facility] [address] [address] [address] Ember Teague ALP [Catalytic activity/Vol] 79 U/L Normal 46-116 [facility] Comment on above: Performed By: #### P THINT #### [facility] [facility] [address] [place] [address] Dr. Ember Teague ALT [Catalytic activity/Vol] 24 U/L Normal 14-59 [facility] Comment on above: Performed By: #### P THINT #### [facility] [address] [place] [address] Dr. Ember Teague Anion gap [Moles/Vol] 12.8 mmol/L Normal [facility] Comment on above: Performed By: #### P THINT #### [facility] [address] [place] [address] Dr. Ember Teague AST [Catalytic activity/Vol] 17 U/L Normal 15-37 [facility] Comment on above: Performed By: #### P THINT #### [facility] [address] [place] [address] Dr. Ember Teague Bilirubin [Mass/Vol] 0.5 mg/dL Normal 0.2-1.0 [facility] Comment on above: Performed By: #### P THINT #### [facility] [address] [place] [address] Dr. Ember Teague Calcium [Mass/Vol] 9.4 mg/dL Normal 8.5-10.1 [facility] Comment on above: Performed By: #### P THINT #### [facility] [address] [place] [address] Dr. Ember Teague Chloride [Moles/Vol] 101 mmol/L Normal 98-107 [facility] Comment on above: Performed By: #### P THINT #### [facility] [address] [place] [address] Dr. Ember Teague CO2 [Moles/Vol] 24.3 mmol/L Normal 21.0-32.0 [facility] Comment on above: Performed By: #### P THINT #### [facility] [address] [place] [address] Dr. Ember Teague Creatinine [Mass/Vol] 2.84 mg/dL Critically high 0.55-1.02 [facility] Comment on above: Performed By: #### P THINT #### [facility] [address] [place] [address] Dr. Ember Teague EGFR-AF TURKMEN 20 mL/min/1.73m2 Critically low >=60 [facility] Comment on above: Performed By: #### P THINT #### [facility] [address] [place] [address] Dr. Ember Teague EGFR-NON AF TURKMEN 16 mL/min/1.73m2 Critically low >=60 [facility] Comment on above: Performed By: #### P THINT #### [facility] [address] [place] [address] Dr. Ember Teague Globulin (S) [Mass/Vol] 3.7 g/dL Normal [facility] Comment on above: Performed By: #### P THINT #### [facility] [address] [place] [address] Dr. Ember Teague Glucose [Mass/Vol] 174 mg/dL Critically high 74-106 [facility] Comment on above: Performed By: #### P THINT #### [facility] [address] [place] [address] Dr. Ember Teague Potassium [Moles/Vol] 5.1 mmol/L Normal 3.5-5.1 [facility] Comment on above: Performed By: #### P THINT #### [facility] [address] [place] [address] Dr. Ember Teague Protein [Mass/Vol] 7.4 g/dL Normal 6.4-8.2 [facility] Comment on above: Performed By: #### P THINT #### [facility] [address] [address] [address] Ember Teague Sodium [Moles/Vol] 133 mmol/L Critically low 136-145 [facility] Comment on above: Performed By: #### P THINT #### [facility] [address] [address] [address] Ember Teague Urea nitrogen [Mass/Vol] 68.0 mg/dL Critically high 7.0-18.0 [facility] Comment on above: Performed By: #### P THINT #### [facility] [address] [place] [address] Dr. Ember Teague Urea nitrogen/Creatinine [Mass ratio] 23.9 mg/mg Normal [facility] Comment on above: Performed By: #### P THINT #### [facility] [address] [place] [address] Dr. Ember Teague TROPONIN, HIGH SENSITIVITYon 09-11-2022 HSTROP 9.1 pg/mL Normal 4.0-51.3 [facility] Comment on above: Result Comment: CUT- OFF POINTS HAVE BEEN ESTABLISHED BASED ON THE FOURTH UNIVERSAL DEFINITIONS OF MYOCARDIAL INFARCTION. THE UPPER REFERENCE LIMIT (URL) OF TROPONIN, DEFINED THE 99TH PERCENTILE OF cTnI DISTRIBUTION IN A REFERENCE POPULATION, HAS BEEN CONFIRMED THE DECISION THRESHOLD FOR [place] DIAGNOSIS. Performed By: #### P THINT #### [facility] [address] [place] [address] Dr. Ember Teague UA RANDOM W/MICROSCOPICon BACTERIA NONE SEEN Normal NONE SEEN [facility] Comment on above: Performed By: #### C VDTBH #### [facility] [address] [place] [address] Dr. Ember Teague Bilirubin Ql (U) Negative Normal NEGATIVE [facility] Comment on above: Performed By: #### C VDTBH #### [facility] [address] [place] [address] Dr. Ember Teague CAST NONE SEEN Normal NONE SEEN [facility] Comment on above: Performed By: #### C VDTBH #### [facility] [address] [place] [address] Dr. Ember Teague Clarity (U) CLEAR Normal CLEAR [facility] Comment on above: Performed By: #### C VDTBH #### [facility] [address] [place] [address] Dr. Ember Teague Color (U) LT. YELLOW Normal YELLOW [facility] Comment on above: Performed By: #### C VDTBH #### [facility] [address] [place] [address] Dr. Ember Teague Crystals LM Nom (Urine sed) NONE SEEN Normal NONE SEEN [facility] Comment on above: Performed By: #### C VDTBH #### [facility] [address] [place] [address] Dr. Ember Teague Epithelial cells LM Ql (Urine sed) FEW Abnormal NONE SEEN /RARE [facility] Comment on above: Performed By: #### C VDTBH #### [facility] [address] [place] [address] Dr. Ember Teague Glucose Ql (U) Negative Normal NEGATIVE [facility] Comment on above: Performed By: #### C VDTBH #### [facility] [address] [place] [address] Dr. Ember Teague Hemoglobin Ql (U) Negative Normal NEGATIVE [facility] Comment on above: Performed By: #### C VDTBH #### [facility] [address] [place] [address] Dr. Ember Teague Ketones Ql (U) Negative Normal NEGATIVE [facility] Comment on above: Performed By: #### C VDTBH #### [facility] [address] [place] [address] Dr. Ember Teague LEUKOCYTES Negative Normal NEGATIVE [facility] Comment on above: Performed By: #### C VDTBH #### [facility] [address] [place] [address] Dr. Ember Teague MUCOUS NONE SEEN Normal NONE SEEN [facility] Comment on above: Performed By: #### C VDTBH #### [facility] [address] [place] [address] Dr. Ember Teague Nitrite Ql (U) Negative Normal NEGATIVE [facility] Comment on above: Performed By: #### C VDTBH #### [facility] [address] [place] [address] Dr. Ember Teague pH (U) 5.5 [pH] Normal 5-9 [facility] Comment on above: Performed By: #### C VDTBH #### [facility] [address] [place] [address] Dr. Ember Teague RBC NONE SEEN Abnormal 0-2 [facility] Comment on above: Performed By: #### C VDTBH #### [facility] [address] [place] [address] Dr. Ember Teague SPEC GRAVITY 1.010 Normal 1.005-<=1.025 [facility] Comment on above: Performed By: #### C VDTBH #### [facility] [address] [place] [address] Dr. Ember Teague UA PROTEIN Negative Normal NEGATIVE/ TRACE [facility] Comment on above: Performed By: #### C VDTBH #### [facility] [address] [place] [address] Dr. Ember Teague Urobilinogen Qn (U) 0.2 {Esau'U}/dL Normal 0.2 - 1. 0 [facility] Comment on above: Performed By: #### C VDTBH #### [facility] [address] [place] [address] Dr. Ember Teague WBC NONE SEEN Normal NONE SEEN [facility] Comment on above: Performed By: #### C VDTBH #### [facility] [address] [place] [address] Dr. Ember Teague CBC AUTO DIFFon 08-13-2022 BASO # 0.0 103/ul Normal 0.0-0.1 [facility] Comment on above: Performed By: #### C BC #### [facility] [address] [place] [address] Dr. Ember Teague Basophils/100 WBC (Bld) 0.3 % Normal 0.2-2.0 [facility] Comment on above: Performed By: #### C BC #### [facility] [address] [place] [address] Dr. Ember Teague EO # 0.2 103/ul Normal 0.0-0.7 [facility] Comment on above: Performed By: #### C BC #### [facility] [address] [place] [address] Dr. Ember Teague Eosinophils/100 WBC (Bld) 3.7 % Normal 0.9-7.0 [facility] Comment on above: Performed By: #### C BC #### [facility] [address] [place] [address] Dr. Ember Teague Erythrocyte distribution width (RBC) [Ratio] 15.0 % Normal 11.0-15.0 [facility] Comment on above: Performed By: #### C BC #### [facility] [address] [place] [address] Dr. Ember Teague Hematocrit (Bld) [Volume fraction] 27.9 % Critically low 36.0-48.0 [facility] Comment on above: Performed By: #### C BC #### [facility] [address] [place] [address] Dr. Ember Teague Hemoglobin (Bld) [Mass/Vol] 9.7 g/dL Critically low 12.0-16.0 [facility] Comment on above: Performed By: #### C BC #### [facility] [address] [place] [address] Dr. Ember Teague IG # 0.01 10e3/ul Normal 0.00-0.03 [facility] Comment on above: Performed By: #### C BC #### [facility] [address] [place] [address] Dr. Ember Teague IG % 0.2 % Normal 0.0-0.5 [facility] Comment on above: Performed By: #### C BC #### [facility] [address] [place] [address] Dr. Ember Teague LYMPH # 1.9 103/ul Normal 1.2-3.8 [facility] Comment on above: Performed By: #### C BC #### [facility] [address] [place] [address] Dr. Ember Teague Lymphocytes/100 WBC (Bld) 32.2 % Normal 20.5-60.0 [facility] Comment on above: Performed By: #### C BC #### [facility] [address] [place] [address] Dr. Ember Teague MANUAL DIFF REQ NO Normal [facility] Comment on above: Performed By: #### C BC #### [facility] [address] [place] [address] Dr. Ember Teague MCH (RBC) [Entitic mass] 31.4 pg Normal 26.7-34.0 [facility] Comment on above: Performed By: #### C BC #### [facility] [address] [place] [address] Dr. Ember Teague MCHC (RBC) [Mass/Vol] 34.8 g/dL Normal 29.9-35.2 [facility] Comment on above: Performed By: #### C BC #### [facility] [address] [place] [address] Dr. Ember Teague MCV (RBC) [Entitic vol] 90.3 fL Normal 81.0-99.0 [facility] Comment on above: Performed By: #### C BC #### [facility] [address] [place] [address] Dr. Ember Teague MONO # 0.6 103/ul Normal 0.3-0.8 [facility] Comment on above: Performed By: #### C BC #### [facility] [address] [place] [address] Dr. Ember Teague Monocytes/100 WBC (Bld) 9.8 % Normal 1.7-12.0 [facility] Comment on above: Performed By: #### C BC #### [facility] [address] [place] [address] Dr. Ember Teague NEUT # 3.2 103/ul Normal 1.4-6.5 [facility] Comment on above: Performed By: #### C BC #### [facility] [address] [address] [address] Ember Teague Neutrophils/100 WBC (Bld) 53.8 % Normal 43.0-75.0 [facility] Comment on above: Performed By: #### C BC #### [facility] [address] [address] [address] Ember Teague Platelet mean volume (Bld) [Entitic vol] 10.0 fL Normal 9.5-13.5 [facility] Comment on above: Performed By: #### C BC #### [facility] [address] [place] [address] Dr. Ember Teague PLT 194 103/ul Normal 150-450 [facility] Comment on above: Performed By: #### C BC #### [facility] [address] [place] [address] Dr. Ember Teague RBC 3.09 106/ul Critically low 4.20-5.40 [facility] Comment on above: Performed By: #### C BC #### [facility] [address] [place] [address] Dr. Ember Teague WBC 6.0 103/ul Normal 4.0-11.0 [facility] Comment on above: Performed By: #### C BC #### [facility] [address] [place] [address] Dr. Ember Teague PTH INTACTon 06-26-2022 PTH, Intact 39 pg/mL Normal 15-65 [facility] Comment on above: Performed By: #### P THINT #### [facility] [address] [place] [address] Dr. Ember Teague CBC AUTO DIFFon 06-25-2022 BASO # 0.1 103/ul Normal 0.0-0.1 [facility] Comment on above: Performed By: #### C VDTBH #### [facility] [address] [address] [address] Ember Teague Basophils/100 WBC (Bld) 0.6 % Normal 0.2-2.0 [facility] Comment on above: Performed By: #### C VDTBH #### [facility] [address] [place] [address] Dr. Ember Teague EO # 0.2 103/ul Normal 0.0-0.7 [facility] Comment on above: Performed By: #### C VDTBH #### [facility] [address] [place] [address] Dr. Ember Teague Eosinophils/100 WBC (Bld) 3.0 % Normal 0.9-7.0 [facility] Comment on above: Performed By: #### C VDTBH #### [facility] [address] [place] [address] Dr. Ember Teague Erythrocyte distribution width (RBC) [Ratio] 14.2 % Normal 11.0-15.0 [facility] Comment on above: Performed By: #### C VDTBH #### [facility] [address] [place] [address] Dr. Ember Teague Hematocrit (Bld) [Volume fraction] 30.9 % Critically low 36.0-48.0 [facility] Comment on above: Performed By: #### C VDTBH #### [facility] [address] [place] [address] Dr. Ember Teague Hemoglobin (Bld) [Mass/Vol] 10.6 g/dL Critically low 12.0-16.0 [facility] Comment on above: Performed By: #### C VDTBH #### [facility] [address] [place] [address] Dr. Ember Teague IG # 0.04 10e3/ul Critically high 0.00-0.03 [facility] Comment on above: Performed By: #### C VDTBH #### [facility] [address] [place] [address] Dr. Ember Teague IG % 0.5 % Normal 0.0-0.5 [facility] Comment on above: Performed By: #### C VDTBH #### [facility] [address] [place] [address] Dr. Ember Teague LYMPH # 2.2 103/ul Normal 1.2-3.8 [facility] Comment on above: Performed By: #### C VDTBH #### [facility] [address] [place] [address] Dr. Ember Teague Lymphocytes/100 WBC (Bld) 27.0 % Normal 20.5-60.0 [facility] Comment on above: Performed By: #### C VDTBH #### [facility] [address] [place] [address] Dr. Ember Teague MANUAL DIFF REQ NO Normal [facility] Comment on above: Performed By: #### C VDTBH #### [facility] [address] [place] [address] Dr. Ember Teague MCH (RBC) [Entitic mass] 31.2 pg Normal 26.7-34.0 [facility] Comment on above: Performed By: #### C VDTBH #### [facility] [address] [place] [address] Dr. Ember Teague MCHC (RBC) [Mass/Vol] 34.3 g/dL Normal 29.9-35.2 [facility] Comment on above: Performed By: #### C VDTBH #### [facility] [address] [place] [address] Dr. Ember Teague MCV (RBC) [Entitic vol] 90.9 fL Normal 81.0-99.0 [facility] Comment on above: Performed By: #### C VDTBH #### [facility] [address] [place] [address] Dr. Ember Teague MONO # 0.7 103/ul Normal 0.3-0.8 [facility] Comment on above: Performed By: #### C VDTBH #### [facility] [address] [place] [address] Dr. Ember Teague Monocytes/100 WBC (Bld) 9.2 % Normal 1.7-12.0 [facility] Comment on above: Performed By: #### C VDTBH #### [facility] [address] [place] [address] Dr. Ember Teague NEUT # 4.8 103/ul Normal 1.4-6.5 [facility] Comment on above: Performed By: #### C VDTBH #### [facility] [address] [address] [address] Ember Teague Neutrophils/100 WBC (Bld) 59.7 % Normal 43.0-75.0 [facility] Comment on above: Performed By: #### C VDTBH #### [facility] [address] [address] [address] Ember Teague Platelet mean volume (Bld) [Entitic vol] 9.3 fL Critically low 9.5-13.5 [facility] Comment on above: Performed By: #### C VDTBH #### [facility] [address] [place] [address] Dr. Ember Teague PLT 227 103/ul Normal 150-450 [facility] Comment on above: Performed By: #### C VDTBH #### [facility] [address] [place] [address] Dr. Ember Teague RBC 3.40 106/ul Critically low 4.20-5.40 [facility] Comment on above: Performed By: #### C VDTBH #### [facility] [address] [place] [address] Dr. Ember Teague WBC 8.0 103/ul Normal 4.0-11.0 [facility] Comment on above: Performed By: #### C VDTBH #### [facility] [address] [place] [address] Dr. Ember Teague MRI LSPINE WO CONon [...] HUERTA Date: 2022-06-25 08:45 Normal [facility] RENAL FUNCTION PANELon 06-25 Albumin [Mass/Vol] 3.9 g/dL Normal 3.4-5.0 [facility] Comment on above: Performed By: #### P THINT #### [facility] [address] [address] [address] Ember Teague Calcium [Mass/Vol] 9.5 mg/dL Normal 8.5-10.1 [facility] Comment on above: Performed By: #### P THINT #### [facility] [address] [address] [address] Ember Teague Chloride [Moles/Vol] 102 mmol/L Normal 98-107 [facility] Comment on above: Performed By: #### P THINT #### [facility] [address] [address] [address] Ember Teague CO2 [Moles/Vol] 23.8 mmol/L Normal 21.0-32.0 [facility] Comment on above: Performed By: #### P THINT #### [facility] [address] [address] [address] Ember Teague Creatinine [Mass/Vol] 1.75 mg/dL Critically high 0.55-1.02 [facility] Comment on above: Performed By: #### P THINT #### [facility] [address] [address] [address] Ember Teague EGFR-AF TURKMEN 34 mL/min/1.73m2 Critically low >=60 [facility] Comment on above: Performed By: #### P THINT #### [facility] [address] [address] [address] Ember Teague EGFR-NON AF TURKMEN 28 mL/min/1.73m2 Critically low >=60 [facility] Comment on above: Performed By: #### P THINT #### [facility] [address] [address] [address] Ember Teague Glucose [Mass/Vol] 199 mg/dL Critically high 74-106 [facility] Comment on above: Performed By: #### P THINT #### [facility] [address] [address] [address] Ember Teague Phosphate [Mass/Vol] 4.3 mg/dL Normal 2.6-4.7 [facility] Comment on above: Performed By: #### P THINT #### [facility] [address] [address] [address] Ember Teague Potassium [Moles/Vol] 4.9 mmol/L Normal 3.5-5.1 [facility] Comment on above: Performed By: #### P THINT #### [facility] [address] [address] [address] Ember Teague Sodium [Moles/Vol] 135 mmol/L Critically low 136-145 [facility] Comment on above: Performed By: #### P THINT #### [facility] [address] [address] [address] Ember Teague Urea nitrogen [Mass/Vol] 34.0 mg/dL Critically high 7.0-18.0 [facility] Comment on above: Performed By: #### P THINT #### [facility] [address] [address] [address] Ember Teague VITAMIN D 25 OHon 06-25-2022 VIT D 25-OH 40.6 ng/mL Normal [facility] Comment on above: Performed By: #### P THINT #### [facility] [address] [place] [address] Dr. Ember Teague VIT D RANGES SEE BELOW Normal [facility] Comment on above: Result Comment: <20 ng/mL Vit D deficient 20 - <30 ng/mL Vit D insufficient 30 - 100 ng/mL Vit D sufficient >100 ng/mL Potential Toxicity Performed By: #### P THINT #### [facility] [address] [place] [address] Dr. Ember Teague [facility] SARS-CoV-2 (COVID-19) RNA ALEXX+probe Ql (Unsp spec) Not detected Normal NOT DETECTED [facility] Comment on above: Result Comment: This test is not yet approved or cleared by the [place] FDA. When there are no FDA-approved or cleared tests available, and other criteria are met, FDA can make tests available under an emergency access mechanism called an Emergency Use Authorization (EUA). The EUA for this test is supported by the [place] of Health and Human Service's (HHS's) declaration [...] SARS-CoV-2. Performed By: #### C VDTBH #### [facility] [address] [address] [address] LSPINE WO CONon [...] HUERTA Date: 2022-05-21 15:25 Normal [facility] PTH INTACTon 05-03-2022 PTH, Intact 60 pg/mL Normal 15-65 [facility] [facility] Comment on above: Performed By: #### C VDTBH #### [facility] [address] [address] [address] Ember Teague VIT D 25-OH LABCORPon 2021 Vitamin D, 25-Hydroxy 26.1 ng/mL Critically low 30.0-100.0 [facility] Comment on above: Result Comment: Sara min D deficiency has been defined by the [place] [employer] and an Endocrine Society practice guideline as a level of serum 25-OH vitamin D less than 20 ng/mL (1,2). The Endocrine Society went on to further define vitamin D insufficiency as a level between 21 and 29 ng/mL (2). 1. IOM ([place] [employer]). 2010. Dietary reference intakes for calcium and D. [place]: The National Academies Press. 2. Sherice MF, Wendy WILSON, Huan ZHONG, et al. Evaluation, treatment, and prevention of vitamin D deficiency: an Endocrine Society clinical practice guideline. JCEM. 2010; 96(7):1911-30. Performed By: #### R ENAL #### [facility] [address] [address] [address] Ember Teague FERRITINon 05-02-2022 Ferritin [Mass/Vol] 590.0 ng/mL Critically high 8.0-252.0 [facility] Comment on above: Performed By: #### R ENAL #### [facility] [address] [address] [address] Ember Teague HEMOGRAM AND PLATELon 2021 Hematocrit (Bld) [Volume fraction] 28.4 % Critically low 36.0-48.0 [facility] Comment on above: Performed By: #### C VDTBH #### [facility] [address] [address] [address] Ember Teague Hemoglobin (Bld) [Mass/Vol] 9.6 g/dL Critically low 12.0-16.0 [facility] Comment on above: Performed By: #### C VDTBH #### [facility] [address] [place] [address] Dr. Ember Teague MCH (RBC) [Entitic mass] 31.0 pg Normal 26.7-34.0 [facility] Comment on above: Performed By: #### C VDTBH #### [facility] [address] [place] [address] Dr. Ember Teague MCHC (RBC) [Mass/Vol] 33.8 g/dL Normal 29.9-35.2 [facility] Comment on above: Performed By: #### C VDTBH #### [facility] [address] [place] [address] Dr. Ember Teague MCV (RBC) [Entitic vol] 91.6 fL Normal 81.0-99.0 [facility] Comment on above: Performed By: #### C VDTBH #### [facility] [address] [place] [address] Dr. Ember Teague PLT 189 103/ul Normal 150-450 [facility] Comment on above: Performed By: #### C VDTBH #### [facility] [address] [place] [address] Dr. Ember Teague RBC 3.10 106/ul Critically low 4.20-5.40 [facility] Comment on above: Performed By: #### C VDTBH #### [facility] [address] [place] [address] Dr. Ember Teague WBC 6.2 103/ul Normal 4.0-11.0 [facility] Comment on above: Performed By: #### C VDTBH #### [facility] [address] [place] [address] Dr. Ember Teague IRON AND TIBCon 05-02-2022 % SATURATION 34.3 % Normal [facility] Comment on above: Performed By: #### R ENAL #### [facility] [address] [place] [address] Dr. Ember Teague Iron [Mass/Vol] 69.0 ug/dL Normal 50.0-170.0 [facility] Comment on above: Performed By: #### R ENAL #### [facility] [address] [address] [address] Ember Teague TIBC DIRECT 201.0 ug/dL Critically low 250.0-450.0 [facility] Comment on above: Performed By: #### R ENAL #### [facility] [address] [place] [address] Dr. Ember Teague MAGNESIUMon 05-02-2022 Magnesium [Mass/Vol] 1.7 mg/dL Critically low 1.8-2.4 [facility] Comment on above: Performed By: #### C VDTBH #### [facility] [address] [place] [address] Dr. Ember Teague RENAL FUNCTION PANELon 05-02 Albumin [Mass/Vol] 3.6 g/dL Normal 3.4-5.0 [facility] Comment on above: Performed By: #### C VDTBH #### [facility] [address] [place] [address] Dr. Ember Teague Calcium [Mass/Vol] 9.2 mg/dL Normal 8.5-10.1 [facility] Comment on above: Performed By: #### C VDTBH #### [facility] [address] [place] [address] Dr. Ember Teague Chloride [Moles/Vol] 107 mmol/L Normal 98-107 [facility] Comment on above: Performed By: #### C VDTBH #### [facility] [address] [address] [address] Ember Teague CO2 [Moles/Vol] 21.2 mmol/L Normal 21.0-32.0 [facility] Comment on above: Performed By: #### C VDTBH #### [facility] [address] [place] [address] Dr. Ember Teague Creatinine [Mass/Vol] 1.75 mg/dL Critically high 0.55-1.02 [facility] Comment on above: Performed By: #### C VDTBH #### [facility] [address] [place] [address] Dr. Ember Teague EGFR-AF TURKMEN 34 mL/min/1.73m2 Critically low >=60 [facility] Comment on above: Performed By: #### C VDTBH #### [facility] [address] [address] [address] Ember Teague EGFR-NON AF TURKMEN 28 mL/min/1.73m2 Critically low >=60 [facility] Comment on above: Performed By: #### C VDTBH #### [facility] [address] [address] [address] Ember Teague Glucose [Mass/Vol] 193 mg/dL Critically high 74-106 T [facility] Comment on above: Performed By: #### C VDTBH #### [facility] [address] [place] [address] Dr. Ember Teague Phosphate [Mass/Vol] 4.2 mg/dL Normal 2.6-4.7 [facility] Comment on above: Performed By: #### C VDTBH #### [facility] [address] [address] [address] Ember Teague Potassium [Moles/Vol] 5.1 mmol/L Normal 3.5-5.1 [facility] Comment on above: Performed By: #### C VDTBH #### [facility] [address] [place] [address] Dr. Ember Teague Sodium [Moles/Vol] 139 mmol/L Normal 136-145 [facility] Comment on above: Performed By: #### C VDTBH #### [facility] [address] [place] [address] Dr. Ember Teague Urea nitrogen [Mass/Vol] 34.0 mg/dL Critically high 7.0-18.0 [facility] Comment on above: Performed By: #### C VDTBH #### [facility] [address] [place] [address] Dr. Ember Teague UA RANDOM W/MICROSCOPICon BACTERIA SMALL Abnormal NONE SEEN [facility] Comment on above: Performed By: #### C VDTBH #### [facility] [address] [place] [address] Dr. Ember Teague Bilirubin Ql (U) Negative Normal NEGATIVE [facility] Comment on above: Performed By: #### C VDTBH #### [facility] [address] [place] [address] Dr. Ember Teague CAST NONE SEEN Normal NONE SEEN [facility] Comment on above: Performed By: #### C VDTBH #### [facility] [address] [place] [address] Dr. Ember Teague Clarity (U) CLEAR Normal CLEAR [facility] Comment on above: Performed By: #### C VDTBH #### [facility] [address] [place] [address] Dr. Ember Teague Color (U) LT. YELLOW Normal YELLOW [facility] Comment on above: Performed By: #### C VDTBH #### [facility] [address] [place] [address] Dr. Ember Teague Crystals LM Nom (Urine sed) NONE SEEN Normal NONE SEEN [facility] Comment on above: Performed By: #### C VDTBH #### [facility] [address] [place] [address] Dr. Ember Teague Epithelial cells LM Ql (Urine sed) MODERATE Abnormal NONE SEEN /RARE [facility] Comment on above: Performed By: #### C VDTBH #### [facility] [address] [place] [address] Dr. Ember Teague Glucose Ql (U) Negative Normal NEGATIVE [facility] Comment on above: Performed By: #### C VDTBH #### [facility] [address] [place] [address] Dr. Ember Teague Hemoglobin Ql (U) Negative Normal NEGATIVE [facility] Comment on above: Performed By: #### C VDTBH #### [facility] [address] [place] [address] Dr. Ember Teague Ketones Ql (U) Negative Normal NEGATIVE [facility] Comment on above: Performed By: #### C VDTBH #### [facility] [address] [place] [address] Dr. Ember Teague LEUKOCYTES TRACE Abnormal NEGATIVE [facility] Comment on above: Performed By: #### C VDTBH #### [facility] [address] [place] [address] Dr. Ember Teague MUCOUS NONE SEEN Normal NONE SEEN [facility] Comment on above: Performed By: #### C VDTBH #### [facility] [address] [place] [address] Dr. Ember Teague Nitrite Ql (U) Negative Normal NEGATIVE [facility] Comment on above: Performed By: #### C VDTBH #### [facility] [address] [place] [address] Dr. Ember Teague pH (U) 5.0 [pH] Normal 5-9 [facility] Comment on above: Performed By: #### C VDTBH #### [facility] [address] [place] [address] Dr. Ember Teague RBC NONE SEEN Abnormal 0-2 [facility] Comment on above: Performed By: #### C VDTBH #### [facility] [address] [place] [address] Dr. Ember Teague SPEC GRAVITY 1.015 Normal 1.005-<=1.025 [facility] Comment on above: Performed By: #### C VDTBH #### [facility] [address] [place] [address] Dr. Ember Teague UA PROTEIN TRACE Normal NEGATIVE/ TRACE [facility] Comment on above: Performed By: #### C VDTBH #### [facility] [address] [place] [address] Dr. Ember Teague Urobilinogen Qn (U) 0.2 {Esau'U}/dL Normal 0.2 - 1. 0 [facility] Comment on above: Performed By: #### C VDTBH #### [facility] [address] [place] [address] Dr. Ember Teague WBC 0-2 Abnormal NONE SEEN [facility] Comment on above: Performed By: #### C VDTBH #### [facility] [address] [place] [address] Dr. Ember Teague URIC ACID SERUMon 05-02-2022 Urate [Mass/Vol] 4.4 mg/dL Normal 2.6-6.0 [facility] Comment on above: Performed By: #### C BC #### [facility] [address] [address] [address] Ember Teague URINE T PROTEIN CREAT RATIOo n 05-02-2022 Protein (U) [Mass/Vol] 33.7 mg/dL Critically high <=12.0 [facility] Comment on above: Performed By: #### C VDTBH #### [facility] [address] [address] [address] Ember Teague UR PROT CREAT RAT 0.69 Normal [facility] Comment on above: Performed By: #### C VDTBH #### [facility] [address] [address] [address] Ember Teague URINE CREAT 48.93 mg/dL Normal 20.00-300.00 [facility] Comment on above: Performed By: #### C VDTBH #### [facility] [address] [address] [address] Ember Teague Vital Signs Date Time Vital Sign Value Performing Clinician Facility 11-16-2024 09:49-0500 Body height 168.9 cm Lorraine Mayer MD Work Phone: [facility] 11-16-2024 09:49-0500 Body mass index (BMI) [Ratio] 30.53 kg/m2 Lorraine Mayer MD Work Phone: [facility] 11-16-2024 09:49-0500 Body weight 87.09 kg Lorraine Mayer MD Work Phone: [facility] 11-16-2024 09:49-0500 Diastolic blood pressure 80 mm[Hg] Lorraine Mayer MD Work Phone: [facility] 11-16-2024 09:49-0500 Heart rate 62 /min Lorraine Mayer MD Work Phone: [facility] 11-16-2024 09:49-0500 Respiratory rate 16 /min Lorraine Mayer MD Work Phone: [facility] 11-16-2024 09:49-0500 SaO2% (BldA) [Mass fraction] 97 % Lorraine Mayer MD Work Phone: [facility] 11-16-2024 09:49-0500 Systolic blood pressure 130 mm[Hg] Lorraine Mayer MD Work Phone: [facility] 01-17-2024 12:56-0400 Body height 168.9 cm Thuan Lucas MD Work Phone: [facility] 01-17-2024 12:56-0400 Body mass index (BMI) [Ratio] 30.05 kg/m2 Thuan Lucas MD Work Phone: [facility] 01-17-2024 12:56-0400 Body weight 85.73 kg Thuan Lucas MD Work Phone: [facility] 01-17-2024 12:56-0400 Diastolic blood pressure 70 mm[Hg] Thuan Lucas MD Work Phone: [facility] 01-17-2024 12:56-0400 Heart rate 60 /min Thuan Lucas MD Work Phone: [facility] 01-17-2024 12:56-0400 SaO2% (BldA) [Mass fraction] 98 % Thuan Lucas MD Work Phone: [facility] 01-17-2024 12:56-0400 Systolic blood pressure 180 mm[Hg] Thuan Lucas MD Work Phone: [facility] [employer] 11-18-2023 10:00-0500 Body height 168.91 cm Ron Doreen Other [facility] Other 11-18-2023 10:00-0500 Body mass index (BMI) [Ratio] 29.85 kg/m2 Ron Doreen Other [employer] Other 11-18-2023 10:00-0500 Body temperature 97.3 [degF] Ron Doreen Other [employer] Other 11-18-2023 10:00-0500 Body weight 85.19 kg Ron Doreen Other [employer] Other 11-18-2023 10:00-0500 Diastolic blood pressure 79 mm[Hg] Ron Doreen Other [employer] Other 11-18-2023 10:00-0500 Respiratory rate 18 /min Ron Doreen Other [employer] Other 11-18-2023 10:00-0500 SaO2% (BldA) [Mass fraction] 98 % Ron Doreen Other [employer] Other 11-18-2023 10:00-0500 Systolic blood pressure 149 mm[Hg] Ron Doreen Other [employer] Other 11-04-2023 11:00-0500 Body height 168.91 cm Ron Doreen Other [employer] Other 11-04-2023 11:00-0500 Body mass index (BMI) [Ratio] 30.17 kg/m2 Ron Doreen Other [employer] Other 11-04-2023 11:00-0500 Body temperature 97.6 [degF] Ron Doreen Other [employer] Other 11-04-2023 11:00-0500 Body weight 86.09 kg Ron Doreen Other [employer] Other 11-04-2023 11:00-0500 Diastolic blood pressure 76 mm[Hg] Ron Doreen Other [employer] Other 11-04-2023 11:00-0500 Respiratory rate 18 /min Ron Doreen Other [employer] Other 11-04-2023 11:00-0500 SaO2% (BldA) [Mass fraction] 98 % Ron Doreen Other [employer] Other 11-04-2023 11:00-0500 Systolic blood pressure 153 mm[Hg] Ron Doreen Other [employer] Other 10-15-2023 13:00-0500 Body height 168.91 cm Ron Doreen Other [employer] Other 10-15-2023 13:00-0500 Body mass index (BMI) [Ratio] 29.82 kg/m2 Ron Doreen Other [employer] Other 10-15-2023 13:00-0500 Body temperature 97.5 [degF] Ron Doreen Other [employer] Other 10-15-2023 13:00-0500 Body weight 85.1 kg Ron Doreen Other [employer] Other 10-15-2023 13:00-0500 Diastolic blood pressure 68 mm[Hg] Ron Doreen Other [employer] Other 10-15-2023 13:00-0500 Respiratory rate 18 /min Ron Doreen Other [employer] Other 10-15-2023 13:00-0500 SaO2% (BldA) [Mass fraction] 98 % Ron Doreen Other [employer] Other 10-15-2023 13:00-0500 Systolic blood pressure 113 mm[Hg] Ron Doreen Other [employer] Other 08-27-2023 09:40-0500 Body height 168.91 cm [employer] Other [employer] Other 08-27-2023 09:40-0500 Body mass index (BMI) [Ratio] 30.2 kg/m2 [employer] Other [employer] Other 08-27-2023 09:40-0500 Body temperature 96.7 [degF] [employer]iz [employer] Other [employer] Other 08-27-2023 09:40-0500 Body weight 86.18 kg Aziz Bakhous Other [employer] Other 08-27-2023 09:40-0500 Diastolic blood pressure 72 mm[Hg] Aziz Bakhous Other [employer] Other 08-27-2023 09:40-0500 Respiratory rate 18 /min Aziz Bakhous Other [employer] Other 08-27-2023 09:40-0500 SaO2% (BldA) [Mass fraction] 98 % Aziz Bakhous Other [employer] Other 08-27-2023 09:40-0500 Systolic blood pressure 153 mm[Hg] Mary Anne Ackerman Other [employer] Other 08-15-2023 10:20-0500 Body height 168.91 cm Ron Doreen Other [employer] Other 08-15-2023 10:20-0500 Body mass index (BMI) [Ratio] 30.2 kg/m2 Ron Doreen Other [employer] Other 08-15-2023 10:20-0500 Body temperature 97.1 [degF] Ron Doreen Other [employer] Other 08-15-2023 10:20-0500 Body weight 86.18 kg Ron Doreen Other [employer] Other 08-15-2023 10:20-0500 Diastolic blood pressure 79 mm[Hg] Ron Doreen Other [employer] Other 08-15-2023 10:20-0500 Respiratory rate 18 /min Ron Doreen Other [employer] Other 08-15-2023 10:20-0500 SaO2% (BldA) [Mass fraction] 98 % Ron Doreen Other [employer] Other 08-15-2023 10:20-0500 Systolic blood pressure 164 mm[Hg] Ron Doreen Other [employer] Other 08-13-2023 15:40-0500 Body height 168.91 cm Ron Doreen Other [employer] Other 08-13-2023 15:40-0500 Body mass index (BMI) [Ratio] 30.24 kg/m2 Ron Doreen Other [employer] Other 08-13-2023 15:40-0500 Body temperature 97.2 [degF] Ron Doreen Other [employer] Other 08-13-2023 15:40-0500 Body weight 86.27 kg Ron Doreen Other [employer] Other 08-13-2023 15:40-0500 Diastolic blood pressure 79 mm[Hg] Ron Doreen Other [employer] Other 08-13-2023 15:40-0500 Respiratory rate 18 /min Ron Doreen Other [employer] Other 08-13-2023 15:40-0500 SaO2% (BldA) [Mass fraction] 98 % Ron Doreen Other [employer] Other 08-13-2023 15:40-0500 Systolic blood pressure 186 mm[Hg] Ron Doreen Other [employer] Other 08-01-2023 13:00-0400 Body height 168.91 cm Ron Doreen Other [employer] Other 08-01-2023 13:00-0400 Body mass index (BMI) [Ratio] 30.55 kg/m2 Ron Doreen Other [employer] Other 08-01-2023 13:00-0400 Body temperature 97.8 [degF] Ron Doreen Other [employer] Other 08-01-2023 13:00-0400 Body weight 87.18 kg Ron Doreen Other [employer] Other 08-01-2023 13:00-0400 Diastolic blood pressure 72 mm[Hg] Ron Doreen Other [employer] Other 08-01-2023 13:00-0400 Respiratory rate 18 /min Ron Doreen Other [employer] Other 08-01-2023 13:00-0400 SaO2% (BldA) [Mass fraction] 98 % Ron Doreen Other [employer] Other 08-01-2023 13:00-0400 Systolic blood pressure 160 mm[Hg] Ron Doreen Other [employer] Other 06-24-2023 11:40-0400 Body height 168.91 cm Ron Doreen Other [employer] Other 06-24-2023 11:40-0400 Body mass index (BMI) [Ratio] 29.89 kg/m2 Ron Doreen Other [employer] Other 06-24-2023 11:40-0400 Body temperature 97.3 [degF] Orn Doreen Other [employer] Other 06-24-2023 11:40-0400 Body weight 85.28 kg Ron Doreen Other [employer] Other 06-24-2023 11:40-0400 Diastolic blood pressure 75 mm[Hg] Ron Doreen Other [employer] Other 06-24-2023 11:40-0400 Respiratory rate 18 /min Ron Doreen Other [employer] Other 06-24-2023 11:40-0400 SaO2% (BldA) [Mass fraction] 99 % Ron Doreen Other [employer] Other 06-24-2023 11:40-0400 Systolic blood pressure 129 mm[Hg] Ron Doreen Other [employer] Other 06-06-2023 15:20-0400 Body height 168.91 cm Ron Doreen Other [employer] Other 06-06-2023 15:20-0400 Body mass index (BMI) [Ratio] 29.92 kg/m2 Ron Doreen Other [employer] Other 06-06-2023 15:20-0400 Body temperature 96.5 [degF] Ron Doreen Other [employer] Other 06-06-2023 15:20-0400 Body weight 85.37 kg Ron Doreen Other [employer] Other 06-06-2023 15:20-0400 Diastolic blood pressure 49 mm[Hg] Ron Doreen Other [employer] Other 06-06-2023 15:20-0400 Respiratory rate 18 /min Ron Doreen Other [employer] Other 06-06-2023 15:20-0400 SaO2% (BldA) [Mass fraction] 99 % Ron Doreen Other [employer] Other 06-06-2023 15:20-0400 Systolic blood pressure 128 mm[Hg] Ron Doreen Other [employer] Other 04-30-2023 11:40-0400 Body height 168.91 cm Ron Doreen Other [employer] Other 04-30-2023 11:40-0400 Body mass index (BMI) [Ratio] 30.52 kg/m2 Ron Doreen Other [employer] Other 04-30-2023 11:40-0400 Body temperature 96.9 [degF] Ron Doreen Other [employer] Other 04-30-2023 11:40-0400 Body weight 87.09 kg Ron Doreen Other [employer] Other 04-30-2023 11:40-0400 Diastolic blood pressure 80 mm[Hg] Ron Doreen Other [employer] Other 04-30-2023 11:40-0400 Respiratory rate 18 /min Ron Doreen Other [employer] Other 04-30-2023 11:40-0400 SaO2% (BldA) [Mass fraction] 98 % Ron Doreen Other [employer] Other 04-30-2023 11:40-0400 Systolic blood pressure 150 mm[Hg] Ron Doreen Other [employer] Other 04-06-2023 09:00-0400 Body height 168.91 cm Ron Doreen Other [employer] Other 04-06-2023 09:00-0400 Body mass index (BMI) [Ratio] 30.36 kg/m2 Ron Doreen Other [employer] Other 04-06-2023 09:00-0400 Body weight 86.64 kg Ron Doreen Other [employer] Other 04-06-2023 09:00-0400 Diastolic blood pressure 54 mm[Hg] Ron Doreen Other [employer] Other 04-06-2023 09:00-0400 Respiratory rate 18 /min Ron Doreen Other [employer] Other 04-06-2023 09:00-0400 SaO2% (BldA) [Mass fraction] 98 % Ron Doreen Other [employer] Other 04-06-2023 09:00-0400 Systolic blood pressure 144 mm[Hg] Ron Doreen Other [employer] Other 04-02-2023 14:40-0400 Body height 168.91 cm Ron Doreen Other [employer] Other 04-02-2023 14:40-0400 Body mass index (BMI) [Ratio] 30.55 kg/m2 Ron Doreen Other [employer] Other 04-02-2023 14:40-0400 Body temperature 97 [degF] Ron Doreen Other [employer] Other 04-02-2023 14:40-0400 Body weight 87.18 kg Ron Doreen Other [employer] Other 04-02-2023 14:40-0400 Diastolic blood pressure 76 mm[Hg] Ron Doreen Other [employer] Other 04-02-2023 14:40-0400 Respiratory rate 18 /min Ron Doreen Other [employer] Other 04-02-2023 14:40-0400 SaO2% (BldA) [Mass fraction] 98 % Ron Doreen Other [employer] Other 04-02-2023 14:40-0400 Systolic blood pressure 183 mm[Hg] Ron Doreen Other [employer] Other 03-07-2023 09:20-0400 Body height 168.91 cm Ron Doreen Other [employer] Other 03-07-2023 09:20-0400 Body mass index (BMI) [Ratio] 30.52 kg/m2 Ron Doreen Other [employer] Other 03-07-2023 09:20-0400 Body temperature 97.1 [degF] Ron Doreen Other [employer] Other 03-07-2023 09:20-0400 Body weight 87.09 kg Ron Doreen Other [employer] Other 03-07-2023 09:20-0400 Diastolic blood pressure 72 mm[Hg] Ron Doreen Other [employer] Other 03-07-2023 09:20-0400 Respiratory rate 18 /min Ron Doreen Other [employer] Other 03-07-2023 09:20-0400 SaO2% (BldA) [Mass fraction] 97 % Ron Doreen Other [employer] Other 03-07-2023 09:20-0400 Systolic blood pressure 130 mm[Hg] Ron Doreen Other [employer] Other 12-20-2022 13:20-0400 Body height 168.91 cm Ron Doreen Other [employer] Other 12-20-2022 13:20-0400 Body mass index (BMI) [Ratio] 30.68 kg/m2 Ron Doreen Other [employer] Other 12-20-2022 13:20-0400 Body temperature 97.1 [degF] Ron Doreen Other [employer] Other 12-20-2022 13:20-0400 Body weight 87.54 kg Ron Doreen Other [employer] Other 12-20-2022 13:20-0400 Diastolic blood pressure 72 mm[Hg] Ron Doreen Other [employer] Other 12-20-2022 13:20-0400 Respiratory rate 18 /min Ron Doreen Other [employer] Other 12-20-2022 13:20-0400 SaO2% (BldA) [Mass fraction] 99 % Ron Doreen Other [employer] Other 12-20-2022 13:20-0400 Systolic blood pressure 139 mm[Hg] Ron Doreen Other [employer] Other 11-05-2022 14:00-0500 Body height 168.91 cm Ron Doreen Other [employer] Other 11-05-2022 14:00-0500 Body mass index (BMI) [Ratio] 30.59 kg/m2 Ron Doreen Other [employer] Other 11-05-2022 14:00-0500 Body temperature 96.8 [degF] Ron Doreen Other [employer] Other 11-05-2022 14:00-0500 Body weight 87.27 kg Ron Doreen Other [employer] Other 11-05-2022 14:00-0500 Diastolic blood pressure 72 mm[Hg] Ron Doreen Other [employer] Other 11-05-2022 14:00-0500 Respiratory rate 18 /min Ron Doreen Other [employer] Other 11-05-2022 14:00-0500 SaO2% (BldA) [Mass fraction] 98 % Ron Doreen Other [employer] Other 11-05-2022 14:00-0500 Systolic blood pressure 157 mm[Hg] Ron Doreen Other [employer] Other 09-27-2022 16:00-0500 Body height 168.91 cm Jana Monson Other [employer] Other 09-27-2022 16:00-0500 Body mass index (BMI) [Ratio] 30.55 kg/m2 Jana Monson Other [employer] Other 09-27-2022 16:00-0500 Body temperature 96.8 [degF] Jana Monson Other [employer] Other 09-27-2022 16:00-0500 Body weight 87.18 kg Jana Monson Other [employer] Other 09-27-2022 16:00-0500 Diastolic blood pressure 73 mm[Hg] Jana Monson Other [employer] Other 09-27-2022 16:00-0500 Respiratory rate 18 /min Jana De La Rosamiller Other [employer] Other 09-27-2022 16:00-0500 SaO2% (BldA) [Mass fraction] 98 % Jana Monson Other [employer] Other 09-27-2022 16:00-0500 Systolic blood pressure 159 mm[Hg] Jana De La Rosamiller Other [employer] Other 08-22-2022 12:00-0500 Body height 168.91 cm Ron Doreen Other [employer] Other 08-22-2022 12:00-0500 Body mass index (BMI) [Ratio] 30.65 kg/m2 Ron Doreen Other [employer] Other 08-22-2022 12:00-0500 Body temperature 96.9 [degF] Ron Doreen Other [employer] Other 08-22-2022 12:00-0500 Body weight 87.45 kg Ron Doreen Other [employer] Other 08-22-2022 12:00-0500 Diastolic blood pressure 75 mm[Hg] Ron Doreen Other [employer] Other 08-22-2022 12:00-0500 Respiratory rate 18 /min Ron Doreen Other [employer] Other 08-22-2022 12:00-0500 SaO2% (BldA) [Mass fraction] 96 % Ron Doreen Other [employer] Other 08-22-2022 12:00-0500 Systolic blood pressure 121 mm[Hg] Ron Doreen Other [employer] Other 05-08-2022 10:20-0400 Body height 168.91 cm Ron Doreen Other [employer] Other 05-08-2022 10:20-0400 Body mass index (BMI) [Ratio] 31.54 kg/m2 Ron Doreen Other [employer] Other 05-08-2022 10:20-0400 Body temperature 97.6 [degF] Ron Doreen Other [employer] Other 05-08-2022 10:20-0400 Body weight 89.99 kg Ron Doreen Other [employer] Other 05-08-2022 10:20-0400 Diastolic blood pressure 68 mm[Hg] Ron Doreen Other [employer] Other 05-08-2022 10:20-0400 Respiratory rate 18 /min Ron Doreen Other [employer] Other 05-08-2022 10:20-0400 SaO2% (BldA) [Mass fraction] 98 % Ron Doreen Other [employer] Other 05-08-2022 10:20-0400 Systolic blood pressure 131 mm[Hg] Ron Doreen Other [employer] Other 01-18-2022 10:20-0400 Body height 168.91 cm Ron Doreen Other [employer] Other 01-18-2022 10:20-0400 Body mass index (BMI) [Ratio] 31 kg/m2 Ron Doreen Other [employer] Other 01-18-2022 10:20-0400 Body temperature 96.4 [degF] Ron Doreen Other [employer] Other 01-18-2022 10:20-0400 Body weight 88.45 kg Ron Doreen Other [employer] Other 01-18-2022 10:20-0400 Diastolic blood pressure 74 mm[Hg] Ron Doreen Other [facility] Other 01-18-2022 10:20-0400 Respiratory rate 18 /min Ron Doreen Other [employer] Other 01-18-2022 10:20-0400 SaO2% (BldA) [Mass fraction] 97 % Ron Doreen Other [employer] Other 01-18-2022 10:20-0400 Systolic blood pressure 170 mm[Hg] Ron Doreen Other [employer] Other Encounters Encounter Date Encounter Type Care Provider Facility Start: 11-16-2024 End: 11-16-2024 Bamboo flowsheet Lorraine Mayer MD Work Phone: [facility] Start: 11-16-2024 End: 11-16-2024 BamMempileviry Mayer MD Work Phone: [facility] Start: 11-16-2024 End: 11-16-2024 Office outpatient visit 25 minutes Lorraine Mayer MD Work Phone: [facility] Comment on above: Type 2 diabetes diony itus with hyperglycemia, with long-term 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 (CMS/HCC) (Primary Dx); Vitamin D deficiency; Microalbuminuria; Hyperlipemia, mixed (CMS/HCC); Primary hypertension (CMS/HCC); Insulin long-term use (CMS/HCC); 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CMS/HCC); Encounter for dietary consultation; Chronic renal disease, stage IV (CMS/HCC) Start: 11-16-2024 End: 11-16-2024 ambulatory LORRAINE MAYER Not Available Start: 09-28-2024 End: 09-28-2024 Bamboo flowsheet Ga Lai DPM Work Phone: [facility] Start: 09-28-2024 End: 09-28-2024 Bamboo flowsheet Ga Lai DPM Work Phone: [facility] Start: 09-28-2024 End: 09-28-2024 Patient encounter procedure Ga Lai DPM Work Phone: [facility] Comment on above: Onychomycosis (Prima ry Dx); Pain in both feet; Corns and callosities; Type 2 diabetes mellitus without complication, with long-term 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 (CMS/HCC) Start: 09-28-2024 End: 09-28-2024 ambulatory GA LAI Not Available Start: 09-05-2024 End: 09-11-2024 Refill Marie Garcia PHYSICAL THERAPY COORDINATOR-LOGISTICAL ENGINEER Work Phone: [facility] Comment on above: Med Refill Start: 07-13-2024 End: 07-13-2024 Bamboo flowsheet Lorraine Mayer MD Work Phone: [facility] Start: 07-13-2024 End: 07-13-2024 Bamboo flowsviry Mayer MD Work Phone: [facility] Start: 07-13-2024 End: 07-13-2024 Office outpatient visit 25 minutes Lorraine Mayer MD Work Phone: [facility] Comment on above: Type 2 diabetes diony itus with hyperglycemia, with long-term 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 (CMS/HCC) (Primary Dx); Vitamin D deficiency; Microalbuminuria; Hyperlipemia, mixed (CMS/HCC); Primary hypertension (CMS/HCC); Insulin long-term use (CMS/HCC); 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CMS/HCC); Encounter for dietary consultation; Chronic renal disease, stage IV (CMS/HCC) Start: 07-13-2024 End: 07-13-2024 ambulatory LORRAINE MAYER Not Available Start: 06-25-2024 End: 06-25-2024 Bamboo flowsheet Ga Lai DPM Work Phone: [facility] Start: 06-25-2024 End: 06-25-2024 Bamboo flowsheet Ga Lai DPM Work Phone: [facility] Start: 06-25-2024 End: 06-25-2024 Patient encounter procedure Ga Lai DPM Work Phone: [facility] Comment on above: Onychomycosis (Prima ry Dx); Pain in both feet; Corns and callosities; Type 2 diabetes mellitus without complication, with long-term 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 ([facility]) Start: 06-25-2024 End: 06-25-2024 ambulatory GA LAI Not Available Start: 06-04-2024 End: 06-04-2024 Bamboelan iTneo MD Work Phone: [facility] Start: 06-04-2024 End: 06-04-2024 Bamzoraidao cornelio Tineo MD Work Phone: [facility] Start: 06-04-2024 End: 06-04-2024 Office outpatient visit 15 minutes Greg Tineo MD Work Phone: [facility] Comment on above: Granuloma annulare ( Primary Dx) Start: 06-04-2024 End: 06-04-2024 ambulatory GREG TINEO Not Available Start: 05-25-2024 End: 05-25-2024 Patient encounter procedure Greg Tineo MD Work Phone: [facility] Comment on above: Rash and other nonsp ecific skin eruption (Primary Dx) Start: 05-25-2024 End: 05-25-2024 ambulatory GREG NAVARROI Not Available Start: 05-11-2024 End: 05-11-2024 ambulatory [facility] Start: 04-21-2024 End: 04-21-2024 ambulatory GREG TINEO Not Available Start: 04-16-2024 End: 04-16-2024 ambulatory GA Josh CHERIE Not Available Start: 03-16-2024 End: 03-16-2024 ambulatory GREG NAVARROI Not Available Start: 02-10-2024 End: 02-10-2024 ambulatory SANDIAB [facility] Start: 01-17-2024 End: 01-17-2024 ambulatory THUAN George LUCAS [facility] Start: 01-17-2024 End: 01-17-2024 Office outpatient visit 15 minutes Sarthak Rueda MD Work Phone: [facility] Comment on above: Paroxysmal atrial fi brillation (CMS-HCC) (Primary Dx); Stage 4 chronic kidney disease (CMS-HCC); 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); Other forms of angina pectoris (CMS-HCC); Essential hypertension; Atherosclerosis of [place] coronary artery of [place] heart without angina pectoris; H/O four vessel coronary artery bypass graft; Hypertensive urgency; Shortness of breath; Localized edema Start: 01-16-2024 End: 01-16-2024 Telephone encounter Cary Goldman CMA [facility] Start: 01-16-2024 End: 01-16-2024 ambulatory GA LAI Not Available Start: 12-21-2023 Refill Luis dominique PA-C Work Phone: [facility] Comment on above: Med Refill Start: 11-28-2023 End: 11-28-2023 ambulatory GREG NAVARROI Not Available Start: 11-18-2023 End: 11-18-2023 ambulatory Ron Doreen Other [employer] Other Start: 11-18-2023 Office outpatient vi sit 15 minutes Ron Doreen [facility] Start: 11-04-2023 (INJECTION) INJECTION Ron Doreen [facility] Start: 11-04-2023 End: 11-04-2023 ambulatory Ron Doreen Other [employer] Other Start: 10-15-2023 End: 10-15-2023 ambulatory Ron Doreen Other [employer] Other Start: 10-15-2023 Office outpatient vi sit 15 minutes Ron Doreen [facility] Start: 10-08-2023 End: 10-08-2023 ambulatory Aziz Bakhous Other [employer] Other Start: 10-08-2023 Telephone encounter Aziz Bakhous [facility] Start: 09-15-2023 End: 09-15-2023 ambulatory Ron Doreen Other [employer] Other Start: 09-15-2023 Telephone encounter Ron Doreen [facility] Start: 09-09-2023 End: 09-09-2023 ambulatory Ron Doreen Other [employer] Other Start: 09-09-2023 Telephone encounter Ron Doreen [facility] Start: 08-27-2023 (INJECTION) INJECTION Aziz Bakhous [facility] Start: 08-27-2023 End: 08-27-2023 ambulatory Aziz Bakhous Other [employer] Other Start: 08-15-2023 (INJECTION) INJECTION Ron Doreen [facility] Start: 08-15-2023 End: 08-15-2023 ambulatory Ron Doreen Other [employer] Other Start: 08-13-2023 (INJECTION) INJECTION Ron Doreen [facility] Start: 08-13-2023 End: 08-13-2023 ambulatory Ron Doreen Other [employer] Other Start: 08-01-2023 End: 08-01-2023 ambulatory Ron Doreen Other [employer] Other Start: 08-01-2023 Office outpatient vi sit 15 minutes Ron Doreen [facility] Start: 06-24-2023 End: 06-24-2023 ambulatory Ron Doreen Other [employer] Other Start: 06-24-2023 Office outpatient vi sit 10 minutes Ron Doreen [facility] Start: 06-06-2023 End: 06-06-2023 ambulatory Ron Doreen Other [employer] Other Start: 06-06-2023 Office outpatient vi sit 15 minutes Ron Doreen [facility] Eliel Start: 04-30-2023 End: 04-30-2023 ambulatory Ron Doreen Other [employer] Other Start: 04-30-2023 Office outpatient vi sit 15 minutes Ron Doreen [facility] Start: 04-06-2023 (INJECTION) INJECTION [facility] Doreen [facility] Start: 04-06-2023 End: 04-06-2023 ambulatory Ron Doreen Other [employer] Other Start: 04-06-2023 Telephone encounter Ron Doreen [facility] Start: 04-02-2023 End: 04-02-2023 ambulatory Ron Doreen Other [employer] Other Start: 04-02-2023 Office outpatient vi sit 15 minutes Ron Doreen [facility] Start: 04-02-2023 Telephone encounter Ron Doreen [facility] Start: 03-07-2023 End: 03-07-2023 ambulatory Ron Doreen Other [employer] Other Start: 03-07-2023 Office outpatient vi sit 15 minutes Ron Doreen [facility] Start: 01-22-2023 End: 01-23-2023 ambulatory RON DOREEN Facility:[facility] Start: 12-20-2022 End: 12-20-2022 ambulatory Ron Doreen Other [employer] Other Start: 12-20-2022 Office outpatient vi sit 15 minutes Ron Doreen [facility] Start: 12-17-2022 End: 12-18-[address] MERRICK RUBI . Facility:[facility] Start: 12-10-2022 End: 12-11-2022 ambulatory RON DOREEN Facility:[facility] Start: 11-20-2022 End: 11-21-[address] BENI APARICIO Facility:[facility] Start: 11-05-2022 End: 11-05-2022 ambulatory Ron Doreen Other [employer] Other Start: 11-05-2022 Office outpatient vi sit 15 minutes Ron Doreen [facility] Start: 10-29-2022 End: 10-30-[address] JANA MONSON Facility:[facility] Start: 10-24-2022 End: 10-24-[address] LILLIAN ACOSTA . Facility:[facility] Start: 10-24-2022 End: 10-25-[address] MERRICK RUBI . Facility:[facility] Start: 09-27-2022 End: 09-27-2022 ambulatory Jana Monson Other [employer] Other Start: 09-27-2022 Office outpatient vi sit 15 minutes Jana Monson [facility] Start: 09-18-2022 End: 09-19-2022 ambulatory RON DOREEN Facility:[facility] Start: 09-11-2022 End: 09-11-[address] MERRICK RUBI . Facility:[facility] Start: 08-22-2022 End: 08-22-2022 ambulatory Ron Doreen Other [employer] Other Start: 08-22-2022 Office outpatient vi sit 15 minutes Ron Doreen [facility] Start: 08-13-2022 End: 08-14-2022 ambulatory RON DOREEN Facility:[facility] Start: 06-25-2022 End: 06-26-[address] MERRICK RUBI . Facility:[facility] Start: 06-18-2022 End: 06-18-[address] MERRICK RUBI . Facility:[facility] Start: 06-01-2022 End: 06-02-[address] YANET HUERTA Facility:[facility] Start: 05-28-2022 End: 05-28-2022 ambulatory Ron Doreen Other [employer] Other Start: 05-28-2022 Telephone encounter Ron Doreen [facility] Start: 05-21-2022 End: 05-22-[address] MERRICK RUBI . Facility:[facility] Start: 05-16-2022 End: 05-16-2022 ambulatory Ron Doreen Other [employer] Other Start: 05-16-2022 Telephone encounter Ron Doreen [facility] Start: 05-10-2022 End: 05-10-2022 ambulatory Ron Doreen Other [employer] Other Start: 05-10-2022 Telephone encounter Ron Doreen [facility] Start: 05-08-2022 End: 05-08-2022 ambulatory Ron Doreen Other [employer] Other Start: 05-08-2022 Office outpatient vi sit 25 minutes Ron Doreen [facility] Start: 05-02-2022 End: 05-03-2022 ambulatory RON DOREEN Facility:[facility] Start: 04-24-2022 End: 04-24-2022 ambulatory Aziz Bakhous Other [employer] Other Start: 04-24-2022 Telephone encounter Aziz Bakhous [facility] Start: 01-18-2022 End: 01-18-2022 ambulatory Ron Doreen Other [employer] Other Start: 01-18-2022 Office outpatient vi sit 25 minutes Ron Doreen [facility] Start: 05-21-2017 End: 05-22-2017 Ambulatory DEFAULT PHYSICIAN Facility:[facility] Procedures Date Procedure Procedure Detail Performing Clinician Start: 11-16-2024 Gluc bld gluc mntr d ev cleared fda spec home use Lorraine Mayer MD Work Phone: Start: 07-13-2024 Gluc bld gluc mntr d ev cleared fda spec home use Lorraine Mayer MD Work Phone: Start: 05-25-2024 SKIN / NAIL BIOPSY Martin Tineo MD Work Phone: Start: 01-17-2024 Ecg routine ecg w/le ast 12 lds w/i&r Thuan Lucas MD Work Phone: Start: 01-11-2021 History of coronary artery bypass grafting H/O four vessel coronary artery bypass graft Lusi Quiles PA-C Work Phone: Start: 12-28-2020 Adult depression screening assessment Luis Quiles PA-C Work Phone: History of coronary artery bypass grafting H/O four vessel coronary artery bypass graft Luis Quiles PA-C Work Phone: History of coronary artery bypass grafting H/O four vessel coronary artery bypass graft Sarthak Rueda MD Work Phone: Plan of Treatment Date Care Activity Detail Author Start: 03-16-2025 End: 03-16-2025 Patient encounter procedure 03/16/2025 8:35 AM EDT Office Visit [facility] [address] [place] [address] Greg Tineo MD [address] [place] [address] [facility] Start: 02-15-2025 End: 02-15-2025 Patient encounter procedure 02/15/2025 9:40 AM EDT Office Visit [facility] [address] [place] [address] Lorraine Mayer MD [address] [place] [address] [facility] Start: 01-16-2025 Adult BMI Screening Adult BMI Screening [facility] Start: 01-16-2025 Tobacco Screening Tobacco Screening [facility] Start: 12-31-2024 End: 12-31-2024 Patient encounter procedure 12/31/2024 10:15 AM EDT Procedure Visit [facility] [address] [place] [address] Ga Lai DPM [address] [place] [address] [facility] Start: 11-16-2024 End: 11-16-2024 Patient encounter procedure [facility] Comment on above: Type 2 diabetes mellitus with hyperglyce constance, with long-term 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 ([facility]) Start: 09-28-2024 End: 09-28-2024 Patient encounter procedure [facility] Comment on above: Arrived Start: 07-13-2024 End: 07-13-2024 Patient encounter procedure [facility] Comment on above: Type 2 diabetes mellitus with hyperglyce constance, with long-term 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 ([facility]) Start: 06-25-2024 End: 06-25-2024 Patient encounter procedure [facility] Comment on above: Arrived Start: 06-07-2024 COVID-19 Vaccine () COVID-19 Vaccine ( season) [facility] Start: 06-07-2024 Influenza vaccination [facility] Start: 06-04-2024 End: 06-04-2024 Patient encounter procedure [facility] Comment on above: Arrived Start: 03-19-2024 Adult BMI Screening Adult BMI Screening [facility] Start: 03-19-2024 Tobacco Screening Tobacco Screening [facility] Start: 02-21-2024 End: 02-21-2024 Patient encounter procedure 02/21/2024 2:00 PM EDT Office Visit [facility] [address] [place] [id number] Thuan Lucas MD [address] [place] [address] [facility] Start: 01-24-2024 End: 01-16-2025 Basic metabolic 2000 panel - Serum or Plasma Basic Metabolic Panel Lab Routine Stage 4 chronic kidney disease (CMS-HCC) Essential hypertension Expected: 01/24/2024 (Approximate), Expires: 01/16/2025 [facility] Work Phone: Comment on above: Expected: 01/24/2024 (Approximate), Expi res: 01/16/2025 Start: 01-24-2024 End: 01-24-2024 Clinical Support 01/24/2024 10:30 AM EDT Clinical Support [facility] [address] [place] [id number] [facility] Start: 01-17-2024 End: 01-17-2024 Patient encounter procedure 01/17/2024 1:00 PM EDT Office Visit [facility] [address] [place] [id number] Sarthak Rueda MD [address] [place] [address] Thuan Lucas MD [address] [place] [address] [facility] Start: 06-07-2023 COVID-19 Vaccine () COVID-19 Vaccine () [facility] Start: 06-07-2023 Influenza vaccination Influenza Vaccine [facility] Start: 12-28-2021 Depression Screening Depression Screening [facility] Start: 2009 Fall Risk Screening Fall Risk Screening [facility] Start: 1994 Administration of varicella zoster vaccine Zoster (Shingles) Vaccine (1 of 2) [facility] Start: 12-15-1963 DTaP,Tdap and Td Vaccines (1 - Tdap) DTaP,Tdap and Td Vaccines (1 - Tdap) [facility] Start: 1962 Adult BMI Follow Up Plan Adult BMI Follow Up Plan [facility] Start: 1956 Depression Screening Depression Screening [facility] Start: 1944 Medicare Annual Wellness Visit Medicare Annual Wellness Visit [facility] Dermatopathology exam Dermatopat hology exam Pathology and Cytology Timed Rash and other nonspecific skin eruption Release Upon Ordering for 1 Occurrences starting 05/25/2024 [facility] Work Phone: Comment on above: Release Upon Ordering for 1 Occurrences starting 05/25/2024 Immunizations Immunization Date Immunization Notes Care Provider [facility] 07-10-2022 unknown vaccine or immune globulin Ga Lai DPM Work Phone: [facility] 07-20-2021 unknown vaccine or immune globulin Ga Lai DPM Work Phone: [facility] 07-18-2020 Seasonal trivalent influenza vaccine, adjuvanted, preservative free Luis VALDEZ-Carrol Work Phone: [facility] 07-18-2020 influenza virus vacc ine, unspecified formulation Luisteetee Quiles PA-C Work Phone: [facility] 07-22-2019 Seasonal trivalent influenza vaccine, adjuvanted, preservative free Luis Quiles PA-C Work Phone: [facility] 07-20-2019 influenza, injectabl e, quadrivalent, preservative free Ga Lai DPM Work Phone: [facility] 07-14-2018 Seasonal trivalent influenza vaccine, adjuvanted, preservative free Luis Kb PA-C Work Phone: [facility] 07-15-2017 pneumococcal conjuga te vaccine, 13 valent Luis Kb PA-C Work Phone: [facility] 07-08-2017 influenza, high dose seasonal, preservative-free Luis Kb PA-C Work Phone: [facility] 07-25-2016 influenza, high dose seasonal, preservative-free Luis Kb PA-C Work Phone: [facility] 07-11-2015 influenza, high dose seasonal, preservative-free Luis Kb PA-C Work Phone: [facility] 07-16-2014 influenza, seasonal, injectable Luis Kb PA-C Work Phone: [facility] 07-10-2013 influenza, seasonal, injectable Luis Kb PA-C Work Phone: [facility] 08-08-2012 influenza virus vacc ine, unspecified formulation Luis Kb PA-C Work Phone: [facility] 08-08-2012 pneumococcal polysaccharide vaccine, 23 valent Luis Kb PA-C Work Phone: [facility] 07-11-2011 influenza virus vacc ine, unspecified formulation Luis Kb PA-C Work Phone: [facility] 08-15-2010 influenza virus vacc ine, unspecified formulation Luis Kb PA-C Work Phone: [facility] 07-26-2009 influenza virus vacc ine, unspecified formulation Luis Kb PA-C Work Phone: [facility] 08-04-2008 influenza virus vacc ine, unspecified formulation Luis Kb PA-C Work Phone: [facility] 08-13-2007 influenza virus vacc ine, unspecified formulation Luis Kb PA-C Work Phone: [facility] 08-11-2004 influenza virus vacc ine, unspecified formulation Luis Quiles KELLY Work Phone: [facility] 08-09-2003 influenza virus vacc ine, unspecified formulation Luis Quiles KELLY Work Phone: [facility] 08-09-2003 pneumococcal polysaccharide vaccine, 23 valent Luis Maringurjit MENDOZA Work Phone: [facility] Payers Date Payer Category Payer Medicaid [employer] MED[employer] A DVANTAGE [id number] 2021 Medicare [id number] 2021 Medicare O [employer] MEDICARE [id number] 1959 Medicare [id number] [id number] 1944 Unknown [id number] 2.16.840.1.355933.3.579.2.593 1944 Unknown [id number] 2.16.840.1.620817.3.579.2.593 1944 Unknown [id number] 2.16.840.1.592289.3.579.2.593 1944 Unknown [id number] 2.16.840.1.516004.3.579.2.593 1944 Unknown [id number] 2.16.840.1.285195.3.579.2.593 1944 Unknown [id number] 2.16.840.1.823382.3.579.2.593 1944 Unknown [id number] 2.16.840.1.523285.3.579.2.593 1944 Unknown [id number] 2.16.840.1.746605.3.579.2.593 1944 Unknown [id number] 2.16.840.1.935191.3.579.2.593 1944 Unknown [id number] 2.16.840.1.733855.3.579.2.593 1944 Unknown [id number] 2.16.840.1.786601.3.579.2.593 1944 Unknown [id number] 2.16.840.1.245310.3.579.2.593 1944 Unknown [id number] 2.16.840.1.078936.3.579.2.593 1944 Unknown [id number] 2.16.840.1.381157.3.579.2.593 1944 Unknown [id number] 2.16.840.1.053396.3.579.2.593 1944 Unknown [id number] 2.16.840.1.857179.3.579.2.593 1944 Unknown [id number] 2.16.840.1.338791.3.579.2.1286 1944 Unknown [id number] 2.16.840.1.051496.3.579.2.1259 1944 Unknown [id number] 2.16.840.1.189670.3.579.2.1259 1944 Unknown [id number] 2.16.840.1.528414.3.579.2.1259 1944 Unknown [id number] 2.16.840.1.476344.3.579.2.1258 1944 Unknown [id number] 2.16.840.1.259340.3.579.2.1259 1944 Unknown [id number] 2.16.840.1.915093.3.579.2.125 1944 Unknown [id number] 2.16.840.1.965397.3.579.2.125 1944 Unknown [id number] 2.16.840.1.850641.3.579.2.1258 1944 Unknown [id number] 2.16.840.1.816280.3.579.2.1259 1944 Unknown [id number] 2.16.840.1.276839.3.579.2.1258 1944 Unknown [id number] Unknown Social History Date Type Detail Facility Unknown if ever smoked [facility] Other Start: 12-28-2020 End: 09-28-2024 Sex Assigned At [facility] Other Start: 09-20-2022 End: 03-14-2023 Tobacco smoking status ALIS Ex-smoker [facility] End: 10-07-1969 History of tobacco use Current smoker [facility] End: 10-07-1970 History of tobacco use Cigarette Smoker [facility] Start: 09-20-2022 End: 03-14-2023 Tobacco use and exposure Smokeless tobacco non-user [facility] Start: 03-19-2023 End: 01-17-2024 Alcohol intake Ex-drinker (finding) [facility] Start: 12-28-2020 End: 09-28-2024 History of Social function [facility] Do you belong to any clubs or organizations such as mandaeism groups, unions, fraternal or athletic groups, or school groups? No [facility] Are you now , , , , never or living with a partner? [facility] How hard is it for y ou to pay for the very basics like food, housing, medical care, and heating Not hard at all [facility] Do you feel stress - tense, restless, nervous, or anxious, or unable to sleep at night because your mind is troubled all the time - these days [OSQ] Not at all [facility] Start: 1945 Sex Assigned At Not on file [facility] Start: 06-25-2024 End: 09-28-2024 Alcoholic beverage intake Not Asked [facility] Start: 10-21-2023 Alcohol Comment caffeine intake: 1-2 cups per day [facility] Start: 05-21-2017 Sex Female (finding) [facility] tem Goals Date Patient Goal Desired Activity /State Personal health goal Comment on above: Formatting of this n ote might be different from the original. Evaluation of progress towards goal: return home with homecare and support from [facility], children and grandchildren Clinical Notes 01-18-2022 to 11-16-2024 Lorraine Mayer MD - 11/16/2024 9:50 AM Shabnam Lai DPM - 09/28/2024 11:30 AM ESTTelephone Encounter - Bridgett Hoffman LPN - 09/05/2024 8:00 AM Jimy Mayer MD - 07/13/2024 9:20 AM EDT Note Date & Type Note Facility 11-16-2024 History of Present illness Narrative Kylah Robin is a 78 y.o. female No ref. provider found presents with chief complaint of Diabetes, Thyroid Problem, and Follow-up HPI: Interim History: 11/2024 Follow-up visit on 11/16/2024 for type 2 diabetes and hypoglycemia, blood sugar 220, a1c 7, She is on tresiba 30 units , NovoLog 12-16-22 units tid plus ISS#2, on levothyroxine 150 mcg and cytomel 5 mcg once daily. Interim History: 07/2024 Follow-up visit on 07/13/2024 [...] said last GFR around 30 with her education specialist. Interim History: 03/2023 Follow-up visit on 03/12/2023 [...] if it is above 150 use between 10-12, but she did not check her blood [...] she states GFR is 30, per her education specialist. Interim History: 08/24 Followup visit on 08/25/18 [...] reading of her . Lab done in [facility] BUN 28/creatinine 1.43, GFR 36, total cholesterol [...] alendronate (Fosamax) 70 MG tablet 1 tablet, Every 7 days allopurinol (Zyloprim) 100 MG tablet take 1 tablet by oral route 3 times every day Oral aspirin 81 mg, Daily atorvastatin (Lipitor) 80 MG tablet 1 tablet, Nightly betamethasone dipropionate 0.05 % cream Apply to affected areas, up to twice a day when flared, do not use one the face, groin, or underarms, 30 day supply carvedilol (Coreg) 25 MG tablet 1 tablet, 2 times daily with meals cloNIDine (CATAPRES) 0.1 mg, As needed diclofenac (Voltaren) 75 MG EC tablet 1 tablet, 2 times daily HYDROCHLOROTHIAZIDE PO hydroCHLOROthiazide hydrocortisone (Anusol-HC) 25 MG suppository insert 1 suppository by rectal route 2 times every day for 2 weeks Rectal labetalol (Normodyne) 200 MG tablet 2 tablets, 2 times daily levothyroxine (Synthroid, Levoxyl) 150 MCG tablet 2 tablets, Daily before breakfast liothyronine (Cytomel) 5 MCG tablet 1 tablet, Daily lisinopril 40 MG tablet take 1 tablet by oral route every day Oral MAGNESIUM PO Magnesium minocycline 100 MG capsule 1 capsule, Every 12 hours blydtjjkllco-chwu-ponbidtp-folic acid (Centrum) chewable tablet 1 tablet, Daily NovoLOG FLEXPEN 10-15 Units, 3 times daily with meals PANTOPRAZOLE SODIUM PO Pantoprazole Sodium ranolazine (Ranexa) 500 MG 12 hr tablet 1 tablet, 2 times daily ALLERGIES: Allergies Allergen Reactions Amlodipine Unknown Amoxicillin Unknown Amoxicillin-Pot Clavulanate Unknown Doxazosin Unknown Iodinated Contrast Media Other Sulfamethoxazole Unknown Trimethoprim Unknown Past Medical History: Diagnosis Date Actinic keratosis Acute arthritis Arthritis Basal cell carcinoma CAD (coronary artery disease) ([facility]/HCC) Chronic kidney disease, stage III (moderate) (HCC) ([facility]) Current use of insulin ([facility]) Diabetes ([facility]) Frozen shoulder GERD (gastroesophageal reflux disease) Gout 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[facility]) HLD (hyperlipidemia) ([facility]) HTN (hypertension) ([facility]) Hypoglycemia Hypothyroidism ([facility]) Obesity with body mass index (BMI) of 30.0 to 39.9 Squamous cell skin cancer Thyroid disease ([facility]) Type 2 diabetes mellitus with other diabetic kidney complication ([facility]) Vitamin D deficiency Past Surgical History: Procedure [...] to medical management plan Feet: numbness tingling yes , ulcers or skin break no Lab Results Component Value Date HGBA1C 7.0 11/16/2024 Lab Results Component Value Date GLU 220 11/16/2024 GLU 180 07/13/2024 GLU 219 (H) 05/29/2021 Visit Vitals BP 130/80 Pulse 62 Resp 16 Ht 5' 6.5 Wt 192 lb SpO2 97% BMI 30.53 kg/m Smoking Status Former BSA 2.02 m ASSESSMENT AND PLAN: Assessment/Plan Diagnoses and all orders for this visit: Type 2 diabetes mellitus with hyperglycemia, with long-term 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 (CMS/HCC) - POCT glucose manually resulted - POCT glycosylated hemoglobin (Hb A1C) docked device We will continue long-acting tresiba 30 units, short-acting 16-18-22 according to meal size Vitamin D deficiency Microalbuminuria Hyperlipemia, mixed (CMS/HCC) Primary hypertension (CMS/HCC) Insulin long-term use (CMS/HCC) 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CMS/HCC) Continue levothyroxine and Cytomel. Encounter for dietary consultation Diet and exercise reviewed with the patient Chronic renal disease, stage IV (CMS/HCC) Said her last GFR 27 Follow up in about 4 months (around 03/16/2025). documented in this encounter [facility] 09-06-2024 History of Present illness Narrative Images from the original note were not included. HPI: Patient presents in office today for diabetic nailcare. Last PCP visit with Dr. Rubi was 09/2024. Pt sees Dr. Mayer for DM. Recent BS 132. No other complaints. Exam: General Examination: GENERAL APPEARANCE: awake, aware of surroundings, in no acute distress FOOT EXAM: 09/28/24 Vascular: DORSALIS PEDIS PULSE: 2/4, bilaterally POSTERIOR TIBIAL PULSE: 2/4, bilaterally TEMPERATURE GRADIENT: warm to cool EDEMA: none CAPILLARY FILLING TIME(sec): capillary fill intact bilateral digits less than 3 secs. CFT is delayed to the left 2nd digit, 4th digit and along the areas of erythema to the plantar foot bilateral and medial 1st MPJ left Neurologic: NEUROLOGIC: light touch is intact to the plantar foot Dermatologic: SKIN FINDINGS: Evidence of areas of erythema consistent with Raynaud's to the left 2nd digit, 4th digit, medial 1st MPJ left, plantar sub 1st MPJ bilateral, greater on the right side are resolved. There is some discoloration to the 2nd digit right, 2nd-4th digits left, no open wound or pain noted. HYPERKERATOSIS: across the right ball of the foot- from prior laceration when patient was a child, sub 1st MPJ left NAIL PATHOLOGY: digits 1-5 bilateral are intact. Hallux nail is thickened, discolored and crumbly. Remainder of nails are elongated and intact. SKIN PATHOLOGY: decreased hair growth, skin is thin, plantar fat pad atrophy Orthopedic: FOOT MORPHOLOGY: normal JOINT RANGE OF MOTION: without pain or crepitus to the ankle, subtalar joint bilateral DEFORMITIES: mild hammertoes 2,3,4 bilateral PAIN ELICITED WITH PALPATION OF: along the areas of erythema to the plantar foot bilateral MUSCLE STRENGTH: 5/5 for all pedal groups tested Assessments: Raynaud's phenomenon Diabetes with renal complications Bilateral foot pain Onychomycosis Plan: Diabetes, Onychomycosis: 1. Nails were debrided in length and thickness by manual and mechanical means. 2. Advised patient on continued proper diabetic foot care including daily monitoring of their feet for any new complaints or concerns that may arise. 3. Discussed importance of tight blood sugar control to prevent future complications. 4. RTC: 9-12 weeks or as needed if problems arise. documented in this encounter [facility] 09-05-2024 Miscellaneous Notes [facility] 01/17/24 Cmp 01/01/24 documented in this encounter [facility] 09-05-2024 Telephone encounter Note [facility] 01/17/24 Cmp 01/01/24 [facility] 07-13-2024 History of Present illness Narrative Kylah [...] said last GFR around 30 with her education specialist. Interim History: 03/2023 Follow-up visit on 03/12/2023 [...] if it is above 150 use between 10-12, but she did not check her blood [...] she states GFR is 30, per her education specialist. Interim History: 08/24 Followup visit on 08/25/18 [...] reading of her . Lab done in [facility] BUN 28/creatinine 1.43, GFR 36, total cholesterol [...] MG capsule 1 capsule, Every 12 hours ikwhcxzjzceb-imss-ipluerbl-folic acid (Centrum) chewable tablet 1 tablet, Oral, [...] with long-term 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 (CMS/HCC) - POCT glucose manually resulted We will continue long-acting 30 units does not remember the name, short-acting 07/18/15 according to meal size Vitamin D deficiency Microalbuminuria Hyperlipemia, mixed (CMS/HCC) Primary hypertension (CMS/HCC) Insulin long-term use (CMS/HCC) 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CMS/HCC) Continue levothyroxine 150 and Cytomel 5 Encounter for dietary consultation Chronic renal disease, stage IV (CMS/[facility]) Follow up in about 4 months (around 11/13/2024). documented in this encounter [facility] 06-25-2024 History of Present illness Narrative Images from the original note were not included. HPI: Patient presents in office today for diabetic nailcare. Last PCP visit with Dr. Rubi was 04/15/24. Pt sees Dr. Mayer for DM. No other complaints. Exam: General Examination: GENERAL APPEARANCE: awake, aware of surroundings, in no acute distress FOOT EXAM: 06/25/24 Vascular: DORSALIS PEDIS PULSE: 2/4, bilaterally POSTERIOR TIBIAL PULSE: 2/4, bilaterally TEMPERATURE GRADIENT: warm to cool EDEMA: none CAPILLARY FILLING TIME(sec): capillary fill intact bilateral digits less than 3 secs. CFT is delayed to the left 2nd digit, 4th digit and along the areas of erythema to the plantar foot bilateral and medial 1st MPJ left Neurologic: NEUROLOGIC: light touch is intact to the plantar foot Dermatologic: SKIN FINDINGS: Evidence of areas of erythema consistent with Raynaud's to the left 2nd digit, 4th digit, medial 1st MPJ left, plantar sub 1st MPJ bilateral, greater on the right side are resolved. There is some discoloration to the 2nd digit right, 2nd-4th digits left, no open wound or pain noted. HYPERKERATOSIS: across the right ball of the foot- from prior laceration when patient was a child, sub 1st MPJ left NAIL PATHOLOGY: digits 1-5 bilateral are intact. Hallux nail is thickened, discolored and crumbly. Remainder of nails are elongated and intact. SKIN PATHOLOGY: decreased hair growth, skin is thin, plantar fat pad atrophy Orthopedic: FOOT MORPHOLOGY: normal JOINT RANGE OF MOTION: without pain or crepitus to the ankle, subtalar joint bilateral DEFORMITIES: mild hammertoes 2,3,4 bilateral PAIN ELICITED WITH PALPATION OF: along the areas of erythema to the plantar foot bilateral MUSCLE STRENGTH: 5/5 for all pedal groups tested Assessments: Raynaud's phenomenon Diabetes with renal complications Bilateral foot pain Onychomycosis Plan: Diabetes, Onychomycosis: 1. Nails were debrided in length and thickness by manual and mechanical means. 2. Advised patient on continued proper diabetic foot care including daily monitoring of their feet for any new complaints or concerns that may arise. 3. Discussed importance of tight blood sugar control to prevent future complications. 4. RTC: 9-12 weeks or as needed if problems arise. Callous: 1. Hyperkeratosis/porokeratosis as above noted was debrided. 2. Instructed patient on use of aperture pads or Silipos padding/toe spacers to prevent rubbing and continued development of the hyperkeratosis. 3. Also discussed use of moisturizing creams for overall increased hydration to the skin. 4. Discussed continued use of proper foot gear to avoid excess pressure over the callous site. documented in this encounter [facility] 06-04-2024 History of Present illness Narrative Follow up Diagnosis: Rash unspecified Location: hands Procedure performed: Punch biopsy Status: not as painful Date of procedure: 05/25/2024 Current treatment: Betamethasone Dipro 0.05% cream, here for biopsy results Suture Removal Patient here for suture removal: No complaints of redness, drainage or swelling at site, compliant with wound care. Location: Right Hypothenar [place] Procedure Performed: Punch biopsy Date of Procedure: 05/25/2024 Medications: Betamethasone All pertinent medical history, medications, and allergies were reviewed. General Exam: alert , oriented to person, place, and time , normal affect, well appearing Unaccompanied A focused exam completed based on patient reported problems, see below: 1. Granuloma annulare Left Hand - Anterior, Right Hand - Anterior [place] indurated annular plaques. Flaring today, but improved since last visit. Discussed that GA is a benign condition that often self-resolves in 1-2 years but in some patients can become a more chronic issue. Discussed the cause of this condition is unknown and treatment can be difficult. Discussed treatment options including topical steroids and ILK. Continue betamethasone cream 0.05% Apply to affected areas, up to twice a day when flared, do not use one the face, groin, or underarms. Notify office if flaring despite treatment. Related Medications betamethasone dipropionate 0.05 % cream Apply to affected areas, up to twice a day when flared, do not use one the face, groin, or underarms, 30 day supply Next Visit: prn for any new/changing lesions documented in this encounter [facility] 05-25-2024 History of Present illness Narrative Images from the original note were not included. Lesions: Location: Hands Duration: Couple weeks ago Quality: painful, itchy, denies bleeding Associated symptoms: non-healing, red, blisters, itchy Treatments: TAC- from Dr. Rubi 05/12/2024, which didn't help Established patient All pertinent medical history, medications, and allergies were reviewed. General Exam: alert , oriented to person, place, and time , normal affect, well appearing Accompanied by spouse A focused exam completed based on patient reported problems, see below: 1. Rash and other nonspecific skin eruption Right Hypothenar [place] plaques Biopsy today, see procedure note. Start Betamethasone cream bid when flared, hold when clear. Lesion biopsy - Right [place]othenar [place] Type of biopsy: punch Informed consent: discussed and consent obtained Informed consent comment: The risks and benefits were discussed. Risks include, but are not limited to, bleeding, infection, scarring, pain, & nerve damage. An opportunity to ask questions prior to the procedure was permitted and questions were answered. Patient was prepped and draped in usual sterile fashion: Area cleansed with alcohol. Anesthesia: the lesion was anesthetized in a standard fashion Anesthetic: 1% lidocaine w/ epinephrine 1-100,000 buffered w/ 8.4% NaHCO3 Punch size: 3 mm (A biopsy by punch method was performed using a dermal punch) Suture size: 4-0 Suture type: nylon Suture type comment: Hemostasis was achieved with suture. Hemostasis achieved with: suture Outcome: patient tolerated procedure well Post-procedure details: sterile dressing applied and wound care instructions given Post-procedure details comment: Emphasized the need to contact clinic for any signs of infection, uncontrollable bleeding, or complications. Dressing type: bandage Additional details: Amount of lidocaine used: 0.5 cc Number of sutures used: 2 Specimen sent for: H&E Photo taken yes Specimen A - Dermatopathology exam Differential Diagnosis: dyshidrotic eczema vs erythema multiforme Check Margins: No Related Medications betamethasone dipropionate 0.05 % cream Apply to affected areas, up to twice a day when flared, do not use one the face, groin, or underarms, 30 day supply Next Visit: pending biopsy results documented in this encounter [facility] 05-11-2024 Note [facility] Cardiology Clinic Note Chief Complaint: Patient here for follow up [facility] discharge back in February 2024. She [...] ventricular gram/pressure Indications (more content not included)... [facility] 02-10-2024 Note [facility] Cardiology Clinic Note Chief Complaint: Patient here to re-establish care. She was recently admitted to [facility] for hypertension. Had CABG since her [...] longstanding diabetic. PAST MEDICAL HISTORY: Diabetes mellitus ([facility]) Hypertensive urgency Arthritis Dyspnea Chest pain Unstable angina ([facility]) Obesity (BMI 30-39.9) H/O four vessel coronary artery bypass graft Paroxysmal atrial fibrillation ([facility]) Atherosclerosis of [place] coronary artery of [place] heart without angina pectoris Obesity (BMI 30-39.9) [...] continued aspirin, high intensity statin therapy, a beta-za, a RAAS inhibitor; her chronic kidney disease [...] office She is to follow-up with her education specialist given her chronic kidney disease Return to clinic in 3 months or sooner should problems arise Carlie Catherine MD (more content not included)... [facility] 01-17-2024 History of Present illness Narrative Kylah Robin Date of visit: 01/17/2024 Date of : 1945 Age: 78 y.o. Patient Active Problem List Diagnosis Diabetes mellitus ([facility]) Hypertensive urgency Arthritis Dyspnea Other forms of angina pectoris ([facility]) Unstable angina ([facility]) Obesity (BMI 30-39.9) H/O four vessel coronary artery bypass graft Paroxysmal atrial fibrillation ([facility]) Atherosclerosis of [place] coronary artery of [place] heart without angina pectoris Obesity (BMI 30-39.9) Essential hypertension Other hyperlipidemia Class 1 obesity in adult Stage 4 chronic kidney disease ([facility]) 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 allopurinoL (ZYLOPRIM) 300 mg tablet Take 1 tablet (300 mg total) by mouth in the morning. aspirin 81 mg Take 1 tablet (81 mg total) by mouth daily. 90 tablet 3 atorvastatin (LIPITOR) 80 mg tablet take 1 tablet by mouth nightly 90 tablet 3 ferrous sulfate 325 (65 FE) mg tablet Take 1 tablet (325 mg total) by mouth in the morning and 1 tablet (325 mg total) before bedtime. insulin aspart (NOVOLOG FLEXPEN U-100 INSULIN SUBQ) Inject under the skin. 10 UNITS BEFORE BREAKFAST, 15 UNITS BEFORE LUNCH, 20 UNITS BEFORE DINNER insulin detemir U-100 (LEVEMIR) 100 unit/mL injection Inject 30 units in the morning and 25 units at night - closely monitor blood sugars and follow up with your PCP in 1-2 weeks (Patient taking differently: Inject 50 units in the morning and 50 units at night - closely monitor blood sugars and follow up with your PCP in 1-2 weeks) 1 Box 12 levothyroxine (SYNTHROID, LEVOTHROID) 125 MCG tablet Take 1 tablet (125 mcg total) by mouth in the morning. liothyronine (CYTOMEL) 5 MCG tablet Take 2 tablets (10 mcg total) by mouth in the morning. magnesium oxide (MAGOX) 400 mg tablet Take 1 tablet (400 mg total) by mouth 3 (three) times a day. 270 tablet 2 pantoprazole (PROTONIX) 40 mg EC tablet Take 1 tablet (40 mg total) by mouth in the morning. carvediloL (COREG) 25 mg tablet Take 2 tablets (50 mg total) by mouth in the morning and 2 tablets (50 mg total) before bedtime. 180 tablet 3 isosorbide mononitrate (IMDUR) 30 mg 24 hr tablet Take 1 tablet (30 mg total) by mouth daily. 90 tablet 3 lisinopriL (PRINIVIL,ZESTRIL) 20 mg tablet Take 1 tablet (20 mg total) by mouth in the morning. No current facility-administered medications for this visit. Chief Complaint Patient presents with Hospital Follow-up [facility] HTN AND 1 MONTH Hypertension Atrial Fibrillation Shortness of Breath History of Present Illness Kylah is here for follow-up. She was recently hospitalized at [place] for poorly controlled blood pressure. Her blood pressure medications were adjusted and eventually she was discharged. She states that her blood pressure is running high and it is running low. They are some days that she does not take her blood pressure medicine because it is too low. She gets symptomatic and feels worse when the blood pressure is low. She does intermittently have some chest pain and shortness of breath with doing activities of daily living. Her creatinine levels are on the higher side. She does have some dizziness and lightheadedness. She has not felt presyncopal or syncopal. She has not had any significant lower extremity edema. Past Medical History: Diagnosis Date Allergic rhinitis Anemia Arthritis CAD (coronary artery disease) Cataract Chest pain Chronic kidney disease COVID-19 Diabetes mellitus (CMS-HCC) Dyspnea Edema GERD (gastroesophageal reflux disease) Gout Hyperlipidemia Hypertensive urgency Hypothyroidism Lower back pain Mitral regurgitation Osteopenia Ventricular hypertrophy No data recorded No data recorded No data recorded Past Surgical History: Procedure Laterality Date CARDIAC CATHETERIZATION CATARACT EXTRACTION, BILATERAL CHOLECYSTECTOMY COLONOSCOPY Coronary angiogram and left ventricular gram/pressure N/A 12/28/2020 Performed by Kassie Nicole MD at [facility] C[facility] CATH [facility]S CORONARY ARTERY BYPASS GRAFT X 4 with OCASIO and SVG x3 / EVH LEFT upper and lower AND RIGHT upper LEG / LUCAS N/A 12/29/2020 Performed by Herrera De Paz MD at [facility] FIRST TRIMESTER / TX INCOMPLETE / MISSED / SEPTIC / INDUCED HYSTERECTOMY ROTATOR CUFF REPAIR Bilateral SINUS SURGERY Family History Problem Relation Age of Onset Heart failure Mother Hypertension Mother Hyperlipidemia Mother Diabetes Mother Heart attack Mother Diabetes Father Cancer Father Heart attack Sister Heart attack Brother Heart attack Brother Social History Socioeconomic History Marital status: Spouse name: Not on file Number of children: Not on file Years of education: Not on file Highest education level: Not on file Occupational History Not on file Tobacco Use Smoking status: Former Current packs/day: 0.00 Types: Cigarettes Quit date: 10/07/1969 Years since quittin.3 Smokeless tobacco: Never Vaping Use Vaping status: Never Used Substance and Sexual Activity Alcohol use: Not Currently Drug use: Never Sexual activity: Defer Other Topics Concern Caffeine Use Yes Social History Narrative Not on file Social Determinants of Health Financial Resource Strain: Low Risk (12/28/2020) Overall Financial Resource Strain (CARDIA) Difficulty of Paying Living Expenses: Not hard at all Food Insecurity: No Food Insecurity (01/17/2024) Hunger Screening Food Insecurity - Worry: Never True Food Insecurity - Inability: Never True Transportation Needs: No Transportation Needs (12/28/2020) PRAPARE - Transportation Lack of Transportation (Medical): No Lack of Transportation (Non-Medical): No Physical Activity: Inactive (12/28/2020) Exercise Vital Sign Days of Exercise per Week: 0 days Minutes of Exercise per Session: 0 min Stress: No Stress Concern Present (12/28/2020) [place] [facility] [employer] [facility] - Occupational Stress Questionnaire Feeling of Stress : Not at all Social Connections: Moderately Integrated (12/28/2020) Social Connection and Isolation Panel [NHANES] Frequency of Communication with Friends and Family: More than three times a week Frequency of Social Gatherings with Friends and Family: More than three times a week Attends [employer] Services: More than 4 times per year Active Member of Clubs or Organizations: No Attends Club or Organization Meetings: Never Marital Status: Interpersonal Safety: Not At Risk (12/28/2020) Humiliation, Afraid, Rape, and Kick questionnaire Fear of Current or Ex-Partner: No Emotionally Abused: No Physically Abused: No Sexually Abused: No Housing Instability: Not on file Review of Systems Review of Systems Constitutional: Positive for malaise/fatigue. HENT: Negative. Eyes: Positive for blurred vision and double vision. Respiratory: Positive for shortness of breath. Hematologic/Lymphatic: Bruises/bleeds easily. Skin: Negative. Musculoskeletal: Negative. Gastrointestinal: Negative. Neurological: Positive for dizziness, headaches, light-headedness, loss of balance and numbness. Psychiatric/Behavioral: Negative. Allergic/Immunologic: Negative. CARDIOVASCULAR: Please review HPI. Physical Examination General appearance: Alert, oriented and cooperative. In no acute distress. Skin: Warm and dry to touch. Head: Normocephalic, Eyes: EOM intact. Neck: No JVD, No carotid bruit. Respiratory: Clear to auscultation bilaterally, Cardiovascular: Regular S1-S2 Musculoskeletal: No peripheral edema. Neurologic: Oriented to time, person and place, affect appropriate. No focal/major motor defects noted. Psychiatric: Appropriate mood, memory and judgement. VITAL SIGNS: BP 180/70 (BP Site: Right Arm, BP Postition: Sitting) Pulse 60 Ht 168.9 cm (5' 6.5 ) Wt 85.7 kg (189 lb) SpO2 98% BMI 30.05 kg/m Orders Placed or Reconciled This Encounter Medications DISCONTD: cloNIDine (CATAPRES) 0.1 mg tablet Sig: Take 2 tablets (0.2 mg total) by mouth in the morning and 2 tablets (0.2 mg total) before bedtime. DISCONTD: meloxicam (MOBIC) 15 mg tablet Sig: Take 1 tablet (15 mg total) by mouth in the morning. lisinopriL (PRINIVIL,ZESTRIL) 20 mg tablet Sig: Take 1 tablet (20 mg total) by mouth in the morning. carvediloL (COREG) 25 mg tablet Sig: Take 2 tablets (50 mg total) by mouth in the morning and 2 tablets (50 mg total) before bedtime. Dispense: 180 tablet Refill: 3 isosorbide mononitrate (IMDUR) 30 mg 24 hr tablet Sig: Take 1 tablet (30 mg total) by mouth daily. Dispense: 90 tablet Refill: 3 Medications Discontinued During This Encounter Medication Reason cholecalciferol, vitamin D3, 5,000 units tablet Therapy completed furosemide (LASIX) 20 mg tablet Therapy completed MULTIVITAMIN ORAL Therapy completed lisinopriL (PRINIVIL,ZESTRIL) 5 mg tablet meloxicam (MOBIC) 15 mg tablet cloNIDine (CATAPRES) 0.1 mg tablet carvediloL (COREG) 25 mg tablet Reorder IMPRESSIONS/PLAN 1. Paroxysmal atrial fibrillation ([facility]) - POCT EKG - carvediloL (COREG) 25 mg tablet; Take 2 tablets (50 mg total) by mouth in the morning and 2 tablets (50 mg total) before bedtime. Dispense: 180 tablet; Refill: 3 2. Stage 4 chronic kidney disease ([facility]) - Basic Metabolic Panel; Future 3. 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 Other forms of angina pectoris ([facility]) 5. Essential hypertension - Basic Metabolic Panel; Future 6. Atherosclerosis of [place] coronary artery of [place] heart without angina pectoris 7. H/O four vessel coronary artery bypass graft - carvediloL (COREG) 25 mg tablet; Take 2 tablets (50 mg total) by mouth in the morning and 2 tablets (50 mg total) before bedtime. Dispense: 180 tablet; Refill: 3 8. Hypertensive urgency - carvediloL (COREG) 25 mg tablet; Take 2 tablets (50 mg total) by mouth in the morning and 2 tablets (50 mg total) before bedtime. Dispense: 180 tablet; Refill: 3 9. Shortness of breath - carvediloL (COREG) 25 mg tablet; Take 2 tablets (50 mg total) by mouth in the morning and 2 tablets (50 mg total) before bedtime. Dispense: 180 tablet; Refill: 3 10. Localized edema - carvediloL (COREG) 25 mg tablet; Take 2 tablets (50 mg total) by mouth in the morning and 2 tablets (50 mg total) before bedtime. Dispense: 180 tablet; Refill: 3 1. Poorly controlled primary hypertension. I have recommended discontinuing clonidine and increasing carvedilol up to 50 mg twice a day. She should continue lisinopril 20 mg a day and I have added isosorbide mononitrate 30 mg to her regimen. Liver come back in 7-10 days for a nurse blood pressure check. I did order a BNP. 2. Atherosclerosis of coronary arteries of [place] heart without angina pectoris. Patient has had prior bypass surgery. She is having some symptoms I am not sure if this is more blood pressure or cardiac related. We will see how it responds to long-acting nitrate therapy. She does have chronic kidney disease making angiography more difficult. 3. Paroxysmal atrial fibrillation which was postoperative and she has not had any recurrence. Long-term oral anticoagulation not necessary. 4. Exertional dyspnea. Most likely related to underlying deconditioning as well as hypertensive cardiac disease. Total time spent on this patient was 27 minutes: Preparing to see the patient(e.g. review of tests and prior office/hospital notes) Obtaining and/or reviewing separately obtained history Performing and medical specialty appropriate examination and/or evaluation Counseling and educating the patient/family/caregiver Ordering medications,tests or procedures TODAYS ORDERS Orders Placed This Encounter Procedures Basic Metabolic Panel POCT EKG FOLLOW UP Return in about 6 weeks (around 02/28/2024). PCP: MERRICK RUBI MD Referring Physician: Merrick Rubi MD [address] [place] [address] documented in this encounter [facility] 01-16-2024 Miscellaneous Notes Called patient to remind them to bring their most current copy of their medication list with them to their appt. Patient verbalizes understanding. documented in this encounter [facility] 01-16-2024 Telephone encounter Note Called patient to remind them to bring their most current copy of their medication list with them to their appt. Patient verbalizes understanding. [facility] 11-18-2023 Evaluation note Encounter Date Diagnosis Assessment [...] potassium improved with dietary restriction and Lasix. [facility] Other 01-29-2024 Evaluation note* Encounter Date Diagnosis Assessment Notes Treatment Notes Treatment Clinical Notes Oct, Anemia of renal disease (ICD-10 - D63.1) Oct, CKD (chronic kidney disease) stage 4, GFR 15-29 ml/min (ICD-10 - N18.4) [facility] Other 01-09-2024 Evaluation note* Encounter Date Diagnosis [...] potassium improved with dietary restriction and Lasix. [facility] Other 12-04-2023 Evaluation note* Encounter Date Diagnosis [...] 4, GFR 15-29 ml/min (ICD-10 - N18.4) [facility] Other 11-21-2023 Evaluation note* Encounter Date Diagnosis Assessment Notes Treatment Notes Treatment Clinical Notes Aug, Anemia of renal disease (ICD-10 - D63.1) Aug, CKD (chronic kidney disease) stage 4, GFR 15-29 ml/min (ICD-10 - N18.4) [facility] Other 11-09-2023 Evaluation note* Encounter Date Diagnosis [...] of kidney mass hydronephrosis or kidney stones. [facility] Other 10-26-2023 Evaluation note* Encounter Date Diagnosis [...] potassium improved with dietary restriction and Lasix. [facility] Other 09-18-2023 Evaluation note* Encounter Date Diagnosis [...] potassium improved with dietary restriction and Lasix. [facility] Other 08-31-2023 Evaluation note* Encounter Date Diagnosis [...] potassium improved with dietary restriction and Lasix. [facility] Other 07-25-2023 Evaluation note* Encounter Date Diagnosis [...] to normal with dietary restriction and Lasix. [facility] Other 07-01-2023 Evaluation note* Encounter Date Diagnosis Assessment Notes Treatment Notes Treatment Clinical Notes Apr, CKD (chronic kidney disease) stage 4, GFR 15-29 ml/min (ICD-10 - N18.4) Apr, Anemia of renal disease (ICD-10 - D63.1) [facility] Other 06-27-2023 Evaluation note* Encounter Date Diagnosis [...] to normal with dietary restriction and Lasix. [facility] Other 06-01-2023 Evaluation note* Encounter Date Diagnosis [...] potassium diet and provide information about it. [facility] Other 03-16-2023 Evaluation note* Encounter Date Diagnosis [...] to Continue Vit D 5000 units daily [facility] Other 01-30-2023 Evaluation note* Encounter Date Diagnosis [...] to Continue Vit D 5000 units daily [facility] Other 12-22-2022 Evaluation note* Encounter Date Diagnosis [...] to Continue Vit D 5000 units daily [facility] Other 11-16-2022 Evaluation note* Encounter Date Diagnosis [...] to Continue Vit D 5000 units daily [facility] Other 08-04-2022 Evaluation note* Encounter Date Diagnosis Assessment Notes Treatment Notes Treatment Clinical Notes May, Hypertensive chronic kidney disease with stage 1 through stage 4 chronic kidney disease, or unspecified chronic kidney disease (ICD-10 - I12.9) [facility] Other 08-02-2022 Evaluation note* Encounter Date Diagnosis [...] to Continue Vit D 5000 units daily [facility] Other 07-19-2022 Evaluation note* Encounter Date Diagnosis Assessment Notes Treatment Notes Treatment Clinical Notes Apr, Hypertensive chronic kidney disease with stage 1 through stage 4 chronic kidney disease, or unspecified chronic kidney disease (ICD-10 - I12.9) [facility] Other 04-14-2022 Evaluation note* Encounter Date Diagnosis [...] to take Vit D 1000 units daily [place] [employer] Other Evaluation noteNo InformationNort Citizen[facility] Other Evaluation note* Diagnosis Atherosclerosis of [place] coronary artery of [place] heart without angina 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 Hypertensive urgency Shortness of breath Paroxysmal atrial fibrillation ([facility]) Atrial fibrillation Localized edema Edema [facility] Diagnosis Type 2 diabetes mellitus with hyperglycemia, with long-term 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 ([facility])- Primary Vitamin D deficiency Microalbuminuria Proteinuria Hyperlipemia, mixed ([facility]) Mixed hyperlipidemia Primary hypertension ([facility]) Unspecified essential hypertension Insulin long-term use ([facility]) Encounter for long-term (current) use of insulin 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[facility]) Chronic lymphocytic thyroiditis Encounter for dietary consultation Chronic renal disease, stage IV ([facility]) Chronic kidney disease, Stage IV (severe) documented in this encounter [facility]* Diagnosis Rash and other nonspecific skin eruption- Primary documented in this encounter [facility]* Diagnosis Granuloma annulare- Primary Other specified erythematous condition documented in this encounter [facility]* Diagnosis Onychomycosis- Primary Dermatophytosis of nail Pain in both feet Corns and callosities Type 2 diabetes mellitus without complication, with long-term 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 ([facility]) documented in this encounter [facility]* Diagnosis Onychomycosis- Primary Dermatophytosis of nail Pain in both feet Corns and callosities Type 2 diabetes mellitus without complication, with long-term 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 ([facility]) documented in this encounter [facility]* Diagnosis Paroxysmal atrial fibrillation ([facility])- Primary Atrial fibrillation Stage 4 chronic kidney disease ([facility]) 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 ([facility]) Other forms of angina pectoris ([facility]) Essential hypertension Unspecified essential hypertension Atherosclerosis of [place] coronary artery of [place] heart without angina 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 Hypertensive urgency Shortness of breath Localized edema Edema documented [facility] Diagnosis Type 2 diabetes mellitus with hyperglycemia, with long-term 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 ([facility])- Primary Vitamin D deficiency Microalbuminuria Proteinuria Hyperlipemia, mixed ([facility]) Mixed hyperlipidemia Primary hypertension ([facility]) Unspecified essential hypertension Insulin long-term use ([facility]) Encounter for long-term (current) use of insulin 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[facility]) Chronic lymphocytic thyroiditis Encounter for dietary consultation Chronic renal disease, stage IV ([facility]) Chronic kidney disease, Stage IV (severe) documented in this encounter [facility] HealthcareHistory general Narrative - Reported* Type Description Date [...] History SEE ABOVE Hospitalization History COVID 09/2020 [facility] Other history general Narrative - Reported* Type [...] History SEE ABOVE Hospitalization History COVID 09/2020 [facility] Other history general Narrative - Reported* Type [...] History SEE ABOVE Hospitalization History COVID 09/2020 [facility] Other History general Narrative - ReportedNortPathway Lending Other History general Narrative - Reported* Type [...] NOSE 10/2019 Surgical History [facility] 01/01/2021 Hospitalization History ELEVATED BLOOD PRESSURE Hospitalization History SEE ABOVE Hospitalization History COVID 09/2020 [facility] Other InstructionsNot on filedocumented in this encounter [facility] filed[facility] filed[facility]ed in this encounter [facility] Summary Purpose Family History No [...] section and content) DATE CREATED AUTHOR 04/02/2018 [facility] DATE CREATED AUTHOR AUTHOR'S ORGANIZ ATION 01/27/2023 [facility] DATE CREATED AUTHOR AUTHOR'S ORGANIZ ATION 01/18/2024 [facility] DATE CREATED AUTHOR AUTHOR'S ORGANIZ ATION 05/12/2024 [facility] DATE CREATED AUTHOR AUTHOR'S ORGANIZ ATION 11/17/2024 [facility] EPIC REASON FOR VISIT (unrecogniz ed section and content) Reason Comments Med Refill Reason Comments Diabetes Mellitus Follow-up Reason Comments Skin Problem Reason Comments Suture / Staple Removal Reason Comments Hospital Follow-up [facility] HTN AND 1 MONTH Hypertension Atrial Fibrillation Shortness of Breath Reason Comments Diabetes Thyroid Problem Follow-up Care Teams (unrecognized sec tion and content) [employer] Relationship Specialty Start Date End Date Merrick Rubi MD [address] [place] [address] PCP - General Family Medicine 10/20/20 [employer] Relationship Specialty Start Date End Date Merrick Rubi MD [address] [place] [address] PCP - General Family Medicine 10/22/23 [employer] Relationship Specialty Start Date End Date Merrick Rubi MD [address] [place] [address] PCP - General Family Medicine 10/22/23 [employer] Grader Relationship Specialty Start Date End Date Merrick Rubi MD PCP - General Family Medicine 10/20/20 [employer]ader Relationship Specialty Start Date End Date Merrick Rubi MD [address] [place] [address] PCP - General Family Medicine 10/22/23 [employer]ader Relationship Specialty Start Date End Date Merrick Rubi MD [address] [place] [address] PCP - General Family Medicine 10/22/23 [employer] Grader Relationship Specialty Start Date End Date Merrick Rubi MD [address] [place] [address] PCP - General Family Medicine 10/22/23 [employer]ader Relationship Specialty Start Date End Date Merrick Rubi MD [address] [place] [address] PCP - General Family Medicine 10/22/23 [employer]ader Relationship Specialty Start Date End Date Merrick Rubi MD [address] [place] [address] PCP - General Family Medicine 10/22/23 [employer]ader Relationship Specialty Start Date End Date Merrick Rubi MD [address] [place] [address] PCP - General Family Medicine 10/22/23 [employer]ader Relationship Specialty Start Date End Date Merrick Rubi MD [address] [place] [address] PCP - General Family Medicine 10/20/20 [employer] Relationship Specialty Start Date End Date Merrick Rubi MD [address] [place] [id number] PCP - General Family Medicine 10/20/20 [employer]ader Relationship Specialty Start Date End Date Merrick Rubi MD [address] [place] [address] PCP - General Family Medicine 10/22/23 FOR [...] BE BASED ON THE PRIMARY CLINICAL RECORDS. [facility] [employer] [facility]. provides no warranty or guarantee of the accuracy or completeness of information in this document.
--- NOTE | 2024-11-17 22:25 | ED.GENADUL1 ---
HPI HPI - General Adult General Chief complaint: Recheck/Abnormal Lab/Rx Stated complaint: Hypertension Time Seen by Provider: 11/17/24 22:18 Source: patient Mode of arrival: walk-in Limitations: no limitations History of Present Illness HPI narrative: 78-year-old female presents for elevated blood pressure. She checked it at home and it was high. She did not miss any doses of her blood pressure medication. Her only symptom is a very mild headache. No chest pain or palpitations or tightness in her chest. No shortness of breath. She states that her blood pressure goes up like this from time to time. Related Data Home Medications ?Medication ?Instructions ?Recorded ?Confirmed atorvastatin 80 mg tablet 80 mg PO .QHS 03/17/23 09/20/24 insulin aspart U-100 100 unit/mL 12 unit subcut DAILY 03/17/23 09/20/24 (3 mL) subcutaneous pen (Novolog FlexPen U-100 Insulin aspart) magnesium oxide 400 mg (241.3 mg 400 mg PO TID 03/17/23 09/20/24 magnesium) tablet pantoprazole 40 mg tablet,delayed 40 mg PO .QD 03/17/23 09/20/24 release ferrous sulfate 325 mg (65 mg 325 mg PO BID 12/31/23 09/20/24 iron) tablet furosemide 20 mg tablet 20 mg PO DAILY 01/22/24 09/20/24 allopurinol 100 mg tablet 50 mg PO QDAY 09/20/24 09/20/24 cefdinir 300 mg capsule 600 mg PO Q12H 09/20/24 09/20/24 Previous Rx's ?Medication ?Instructions ?Recorded insulin detemir U-100 100 unit/mL 26 unit (0.26 mL) subcut BID #15 mL 01/24/24 (3 mL) subcutaneous pen (Levemir FlexPen) aspirin 81 mg chewable tablet 81 mg PO QD #30 tabs 03/05/24 carvedilol 25 mg tablet 25 mg PO BIDWM@0700,1900 #60 tabs 03/05/24 clonidine HCl 0.1 mg tablet 0.1 mg PO Q4H PRN Hypertension #60 03/05/24 tabs hydralazine 25 mg tablet 25 mg PO TID take after breakfast, 03/05/24 lunch and supper #90 tabs isosorbide mononitrate 120 mg 120 mg PO QAM take after breakfast 03/05/24 tablet,extended release 24 hr #30 tabs levothyroxine 100 mcg capsule 100 mcg PO DAILY #30 caps 03/05/24 liothyronine 5 mcg tablet 5 mcg PO ACB #60 tabs 03/05/24 ondansetron HCl 4 mg tablet 4 mg PO Q6H PRN nausea and 09/20/24 vomiting #12 tabs Allergies Allergy/AdvReac Type Severity Reaction Status Date / Time amlodipine (From Norvasc) Allergy Mild itchy Verified 11/17/24 22:00 Iodinated Contrast Media Allergy Unknown Unconscious Verified 11/17/24 22:00 amoxicillin (From Augmentin) Allergy Rash Verified 11/17/24 22:00 clavulanic acid (From Allergy Rash Verified 11/17/24 22:00 Augmentin) sulfamethoxazole (From Allergy Rash Verified 11/17/24 22:00 Bactrim) trimethoprim (From Bactrim) Allergy Rash Verified 11/17/24 22:00 Opioid HPI Opioid Management Most Recent Opioid Data: Last Pain Scale 0 03/04/24 06:00 03/04/24 Last ORT Total Score 0 03/01/24 23:16 03/01/24 Last ORT Risk Category Low Risk 03/01/24 23:16 03/01/24 Review of Systems ROS Narrative A ten point review of systems is negative except as noted above. [facility] Medical History (Updated 11/18/24 @ 00:59 by Pee Prabhakar MD) Chest pain ?R07.9 - Chest pain, unspecified (ICD-10) Hypertensive urgency ?I16.0 - Hypertensive urgency (ICD-10) Iron deficiency anemia, unspecified ?D50.9 - Iron deficiency anemia, unspecified (ICD-10) Hypothyroidism (acquired) ?E03.9 - Hypothyroidism, unspecified (ICD-10) (HFpEF) heart failure with preserved ejection fraction ?I50.30 - Unspecified diastolic (congestive) heart failure (ICD-10) Hypertensive emergency ?I16.1 - Hypertensive emergency (ICD-10) Chronic kidney disease ?N18.9 - Chronic kidney disease, unspecified (ICD-10) Hypertensive urgency ?I16.0 - Hypertensive urgency (ICD-10) Chest pain ?R07.9 - Chest pain, unspecified (ICD-10) Hypertensive urgency ?I16.0 - Hypertensive urgency (ICD-10) Raynaud disease ?I73.00 - Raynaud's syndrome without gangrene (ICD-10) Basal cell carcinoma of skin of nose ?C44.311 - Basal cell carcinoma of skin of nose (ICD-10) Elevated cholesterol ?E78.00 - Pure hypercholesterolemia, unspecified (ICD-10) Chronic kidney disease ?N18.9 - Chronic kidney disease, unspecified (ICD-10) HTN (hypertension) ?I10 - Essential (primary) hypertension (ICD-10) Diabetes ?E11.9 - Type 2 diabetes mellitus without complications (ICD-10) CAD (coronary artery disease) ?I25.10 - Atherosclerotic heart disease of [place] coronary artery without angina pectoris (ICD-10) Surgical History S/P CABG x 1 ?Z95.1 - Presence of aortocoronary bypass graft (ICD-10) H/O shoulder surgery ?Z98.890 - Other specified postprocedural states (ICD-10) History of cholecystectomy ?Z90.49 - Acquired absence of other specified parts of digestive tract (ICD-10) History of hysterectomy ?Z90.710 - Acquired absence of both cervix and uterus (ICD-10) Family History Sister Family history of myocardial infarction Family history of hypertension Brother Family history of myocardial infarction Family history of diabetes mellitus Brother Family history of hypertension Father Family history of cancer Social History Smoking status: Former smoker Highest level of school completed/degree received: 12th grade, no diploma Little interest or pleasure in doing things: not at all Feeling down, depressed, or hopeless: not at all Exam Narrative Exam Narrative: Nurses note and vital signs reviewed and patient is not hypoxic. General: The patient appears well and in no apparent distress. Patient is resting comfortably on cart. Skin: Warm, dry, no pallor noted. There is no rash noted. Head: Normocephalic, atraumatic Eye: Normal conjunctiva, no drainage Ears, Nose, Mouth, and Throat: oral mucosa is moist. Nares patent. Cardiovascular: Regular Rate and Rhythm Respiratory: Patient is in no distress, no accessory muscle use, lungs are clear to auscultation, no wheezing, rales or rhonchi Back: non-tender GI: Soft and nontender Musculoskeletal: The patient has no evidence of calf tenderness, no pitting edema, symmetrical pulses noted bilaterally Neurological: A&O, normal speech Psychiatric: Cooperative Constitutional Vital Signs, click to edit/add: Last Vital Signs Temp 98.2 F 11/17/24 22:01 Pulse 67 11/18/24 00:31 Resp 18 11/18/24 00:31 BP 170/62 H 11/18/24 00:31 Pulse Ox 97 11/18/24 00:31 O2 Del Method Room Air 11/17/24 22:01 Course Vital Signs Vital signs: Vital Signs Temperature 98.2 F 11/17/24 22:01 Pulse Rate 76 11/17/24 22:01 Respiratory Rate 19 11/17/24 22:01 Blood Pressure 260/108 H 11/17/24 22:01 Pulse Oximetry 98 11/17/24 22:01 Oxygen Delivery Method Room Air 11/17/24 22:01 Temperature 98.2 F 11/17/24 22:01 Pulse Rate 67 11/18/24 00:31 Respiratory Rate 18 11/18/24 00:31 Blood Pressure 170/62 H 11/18/24 00:31 Pulse Oximetry 97 11/18/24 00:31 Oxygen Delivery Method Room Air 11/17/24 22:01 Medical Decision Making MDM Narrative Medical decision making narrative: The patient presented with elevated blood pressure. She was given IV hydralazine and it brought her blood pressure down appropriately. Her laboratory analysis is unremarkable and she will be discharged home. She will call her PCPs office in the morning for follow-up. Treatment diagnosis and follow-up were discussed with the patient and her . Differential Diagnosis Differential Diagnosis: Hypertension, acute kidney injury Lab Data Lab results reviewed: Yes I reviewed the patient's lab results Labs: Lab Results 11/17/24 Range/Units 22:30 WBC 6.9 (4.0-11.0) 10^3/uL RBC 3.57 L (4.20-5.40) 10^6/uL Hgb 10.9 L (12.0-16.0) g/dL Hct 32.7 L (36.0-48.0) % MCV 91.6 (81.0-99.0) fL MCH 30.5 (26.7-34.0) pg MCHC 33.3 (29.9-35.2) g/dL RDW 15.1 H (11.0-15.0) % Plt Count 214 (150-450) 10^3/uL MPV 9.2 L (9.5-13.5) fL Neut % (Auto) 55.3 (43.0-75.0) % Lymph % (Auto) 30.9 (20.5-60.0) % [place] % (Auto) 11.3 (1.7-12.0) % Eos % (Auto) 1.7 (0.9-7.0) % Baso % (Auto) 0.4 (0.2-2.0) % Neut # (Auto) 3.8 (1.4-6.5) 10^3/uL Lymph # (Auto) 2.1 (1.2-3.8) 10^3/uL [place] # (Auto) 0.8 (0.3-0.8) 10^3/uL Eos # (Auto) 0.1 (0.0-0.7) 10^3/uL Baso # (Auto) 0.0 (0.0-0.1) 10^3/uL Abs Immat Gran (auto) 0.03 (0.00-0.03) 10^3/uL Imm/Tot Granulo (auto) 0.4 (0.0-0.5) % Sodium 140 (136-145) mmol/L Potassium 4.2 (3.5-5.1) mmol/L Chloride 103 (98-107) mmol/L Carbon Dioxide 26.5 (21.0-32.0) mmol/L Anion Gap 14.7 BUN 39.0 H (7.0-18.0) mg/dL Creatinine 1.94 H (0.55-1.02) mg/dL Est GFR ( Amer) 30 L (>=60 mL/min/1.73m^2) Est GFR (Non-Af Amer) 25 L (>=60 mL/min/1.73m^2) BUN/Creatinine Ratio 20.1 Glucose 141 H (74-106) mg/dL Calcium 8.9 (8.5-10.1) mg/dL ECG Data Attestation: I personally reviewed and interpreted this ECG as follows: (EKG on my interpretation shows sinus rhythm with a rate of 71 and no acute change) Critical Care Time Critical Care Time Critical Care Time: Yes Total Critical Care Time: 35 Attestation: Due to the high probability of sudden and clinically significant deterioration in the patient's condition he/she required the highest level of my preparedness to intervene urgently I provided critical care time including documentation time, medication orders and management, reevaluation, vital sign assessment, ordering and reviewing of lab tests, ordering and reviewing of x-ray studies, and admission orders. Aggregate critical care time is 35 minutes including only time during which I was engaged in work directly related to his/her care and did not include time spent treating other patients simultaneously. Discharge Plan Discharge Chief Complaint: Recheck/Abnormal Lab/Rx Clinical Impression: Hypertension Patient Disposition: Home, Self-Care Time of Disposition Decision: 00:59 Condition: Good Mode of Transportation: Private Vehicle Prescriptions / Home Meds: No Action carvedilol 25 mg Tablet 25 mg PO BIDWM@0700,1900 Qty: 60 0RF clonidine HCl 0.1 mg Tablet 0.1 mg PO Q4H PRN (Reason: Hypertension) Qty: 60 11RF hydralazine 25 mg Tablet 25 mg PO TID Qty: 90 11RF liothyronine 5 mcg Tablet 5 mcg PO ACB Qty: 60 0RF aspirin 81 mg Tablet,Chewable 81 mg PO QD Qty: 30 11RF levothyroxine 100 mcg capsule 100 mcg PO DAILY Qty: 30 11RF isosorbide mononitrate 120 mg tablet extended release 24 hr 120 mg PO QAM Qty: 30 11RF atorvastatin 80 mg tablet 80 mg PO .QHS insulin aspart U-100 [Novolog FlexPen U-100 Insulin] 100 unit/mL (3 mL) insulin pen 12 unit SUBCUT DAILY Rx Instructions: 12 units am, 16units at lunch and 22 units in pm magnesium oxide 400 mg (241.3 mg magnesium) tablet 400 mg PO TID pantoprazole 40 mg tablet,delayed release (DR/EC) 40 mg PO .QD ferrous sulfate 325 mg (65 mg iron) tablet 325 mg PO BID furosemide 20 mg tablet 20 mg PO DAILY Levemir FlexPen 100 unit/mL (3 mL) Insulin Pen 26 unit subcut BID Qty: 15 11RF cefdinir 300 mg capsule 600 mg PO Q12H Patient Comments: last dose this AM allopurinol 100 mg Tablet 50 mg PO QDAY ondansetron HCl 4 mg tablet 4 mg PO Q6H PRN (Reason: nausea and vomiting) Qty: 12 0RF Print Language: Kinyarwanda Instructions: Hypertension (ED) Additional Instructions: Call Dr. Rubi's office in the morning. Referrals: Merrick Rubi MD [Primary Care Provider] - 1 week
--- NOTE | 2024-11-17 22:26 | ECG_ITS ---
[facility] Test Date: 2024-11-17 Pat Name: KYLAH BERGER Department: Room: - Gender: Female [employer]: : 1945 Requested By: DHRUV GUTIERRES Order Number: [id number] Reading MD: DHRUV GUTIERRES Measurements Intervals [place] Rate: 71 P: 25 NV: 186 QRS: 18 QRSD: 84 T: 91 QT: 408 QTc: 431 Interpretive Statements 1100 Sinus rhythm 4068 Nonspecific [place] abnormality 9130 borderline ECG Compared to ECG 09/20/2024 15:21:49 No significant changes Electronically Signed On 11-20-2024 5:24:01 EST by DHRUV GUTIERRES
[2024-11-17 22:45] LABS: Basophils Percent Auto 0.4 % (0.2-2.0); Eosinophils Absolute Auto 0.1 10^3/uL (0.0-0.7); Eosinophils Percent Auto 1.7 % (0.9-7.0); Hematocrit 32.7 % (36.0-48.0); Hemoglobin 10.9 g/dL (12.0-16.0); Immature Granulocytes Abs Auto 0.03 10^3/uL (0.00-0.03); Immature Granulocytes Pct Auto 0.4 % (0.0-0.5); Lymphocytes Absolute Auto 2.1 10^3/uL (1.2-3.8); Lymphocytes Percent Auto 30.9 % (20.5-60.0); Mean Corpuscular HGB Conc 33.3 g/dL (29.9-35.2); Mean Corpuscular Hemoglobin 30.5 pg (26.7-34.0); Mean Corpuscular Volume 91.6 fL (81.0-99.0); Mean Platelet Volume 9.2 fL (9.5-13.5); Monocytes Absolute Auto 0.8 10^3/uL (0.3-0.8); Monocytes Percent Auto 11.3 % (1.7-12.0); Neutrophils Absolute Auto 3.8 10^3/uL (1.4-6.5); Neutrophils Percent Auto 55.3 % (43.0-75.0); Platelet Count 214 10^3/uL (150-450); Red Blood Count 3.57 10^6/uL (4.20-5.40); Red Cell Distribution Width 15.1 % (11.0-15.0); White Blood Count 6.9 10^3/uL (4.0-11.0)
[2024-11-17 22:54] LABS: Anion Gap 14.7; BUN Creatinine Ratio 20.1; Calcium 8.9 mg/dL (8.5-10.1); Carbon Dioxide 26.5 mmol/L (21.0-32.0); Chloride 103 mmol/L (98-107); Estimated GFR (African America 30 (>=60 mL/min/1.73m^2); Estimated GFR (Non-African Ame 25 (>=60 mL/min/1.73m^2); Glucose 141 mg/dL (74-106); Potassium 4.2 mmol/L (3.5-5.1); Sodium 140 mmol/L (136-145)
[2024-11-17] MEDS: HYDRALAZINE HCL 20 MG/ML VIAL 10 MG IVP (23:39)
[2024-11-18] VITALS: PULSE 65; O2SAT 97
[2024-11-18 00:01] VITALS: BP 177/66; PULSE 66; O2SAT 97
[2024-11-18 00:30] VITALS: PULSE 66; O2SAT 97
[2024-11-18 00:31] VITALS: BP 170/62; PULSE 67; O2SAT 97
[2024-11-18 01:00] VITALS: PULSE 63
[2024-11-18 01:01] VITALS: BP 159/60; PULSE 65
== END 2024-11-18 01:00 | disposition home or self-care (01) ==
PROVIDERS: Emergency Provider Emergency Medicine; PCP Family Medicine
DX: I10 Essential (primary) hypertension (principal); R51.9 Headache, unspecified; Z95.1 Presence of aortocoronary bypass graft; Z90.49 Acquired absence of other specified parts of digestive tract; Z90.710 Acquired absence of both cervix and uterus; Z87.891 Personal history of nicotine dependence
CPT/HCPCS: 36415; 80048; 85025; 93005; 96374; 99284; J0360

== ENCOUNTER 2024-12-22 08:47 | Outpatient (OUT) | payer MEDICARE, SELFPAY ==
--- NOTE | 2024-12-22 08:51 | MM_ITS ---
Patient Name: KYLAH BERGER MR#: [id number] : 1945 Exam Date: 12/22/2024 Ordering Doctor: DR Merrick Rubi . RADIOLOGY REPORT PROCEDURE: MM TOMOSYNTHESIS SCREENING BI COMPARISON: MM TOMOSYNTHESIS SCREENING BI, 12/19/2023. MG MAMM SCREEN 3D MAY CAD, 12/17/2022. MG MAMM SCREEN 3D MAY CAD, 12/15/2021. MG MAMM MAY SCRN W CAD DIG, 10/01/2013. INDICATIONS: Screening Calculator Name NCI Breast Cancer Risk Assessment Tool 5 Year Breast Cancer Risk 3.70% Lifetime Breast Cancer Risk 5.70% Personal Breast Cancer No Personal Ovarian Cancer No Treatments None Family Cancers Grandmother-maternal with breast cancer at age 70; Daughter with breast cancer at age 35; Aunt-maternal with breast cancer at age 72; Father with lung cancer at age 62. LOCATION: [facility] BREAST COMPOSITION: There are scattered areas of fibroglandular density. FINDINGS: DIAGNOSTIC CATEGORY 1--NEGATIVE. RIGHT BREAST: No significant suspicious finding. LEFT BREAST: No significant suspicious finding. RECOMMENDATIONS: ROUTINE MAMMOGRAM AND CLINICAL EVALUATION IN 12 MONTHS. PLEASE NOTE: Dictated by: Cristóbal Gamino DO on 12/22/2024 at 15:54 Approved by: Cristóbal Gamino DO on 12/22/2024 at 16:00
--- OUTSIDE RECORDS SUMMARY | 2024-12-22 09:07 | XMS_ITS | CCD ---
Author Organization [facility] Care Team Providers Care Strawhat Sizer Name Role Phone PHYSICIAN, DEFAULT Unavailable Unavailable [...] Unavailable HOY ., DR BARTLETT Admsherlyn Unavailable WEST, DR BENI Sharif Consulting Unavailable DOREEN, RON Consulting Unavailable HOY ., DR BARTLETT Primary Care Unavailable DOREEN, RON Attending Unavailable DOREEN, RON Admitting Unavailable THUAN LUCAS Attending Unavailable DHRUV RUBI Referring Unavailable DHRUV RUBI Primary Care Unavailable Dhruv Rubi MD Primary Care Provider [phone] LORRAINE MAYER Attending Unavailable PETITTSanthosh, GREG A Attending Unavailable GA LAI Attending Unavailable PETITTSanthosh GREG A Attending Unavailable GA LAI Attending Unavailable PETITTSanthosh, GREG A Attending Unavailable PETITTSanthosh, GREG A Attending Unavailable PETITTSanthosh, GREG A Attending Unavailable GA LAI Attending Unavailable LORRAINE MAYER F Attending Unavailable LORRAINE MAYER F Referring Unavailable GA LAI Attending Unavailable Dhruv Rubi MD Primary Care Provider [phone] Dhruv Rubi MD Primary Care Provider [phone] ALEJANDRO ORTIZ Attending Unavailable ELTAHAWY, EHAB Attending Unavailable [place]HAWY, EHAB Attending Unavailable Allergies Allergy Classification Reported Allergen(s) Allergy Type Date of Onset Reaction(s) Facility (20 sources) amLODIPine; Translations: [AMLODIPINE] Drug Allergy 03-28-20 05 Unknown, Rash [facility] Repository (20 sources) Amoxicillin / Clavulanate Drug Allergy 11-23-19 Rash [facility] Other (20 sources) Contrast media Propensity to adverse reactions Unknown [facility] Other (2 sources) Doxazosin; Translations: [doxazosin] Drug Allergy Unknown [facility] Other (20 sources) Sulfamethoxazole / Trimethoprim Drug Allergy 11-23-19 [facility] Other (20 sources) Doxazosin; Translations: [DOXAZOSIN] Drug Allergy 11-23-19 Unknown [facility] Repository (9 sources) Amoxicillin / Clavulanate; Translations: [Augmentin] Drug Allergy 11-16-19 16 Unknown [facility] Repository (1 source) amLODIPine Drug Allergy 04-25-20 14 [facility] Repository (1 source) Sulfamethoxazole / Trimethoprim Drug Allergy 03-09-20 13 [facility] Repository (2 sources) Sulfamethoxazole / Trimethoprim; Translations: [SULFAMETHOXAZOLE-T RIMETHOPRIM] Drug Allergy 08-04-20 15 [facility] Repository (20 sources) IODINATED CONTRAST MEDIA; Translations: [IODINATED CONTRAST MEDIA] Propensity to adverse reactions to drug (disorder) 11-23-19 Other [facility] Repository (17 sources) AMOXICILLIN-POT CLAVULANATE; Translations: [AMOXICILLIN-POT CLAVULANATE] Propensity to adverse reactions to drug (disorder) 11-23-19 Unknown [facility] Repository (15 sources) Amoxicillin Drug Allergy 03-12-20 Unknown [facility] Healthcare (15 sources) Doxazosin Drug Allergy 03-12-20 Unknown [facility] Healthcare (16 sources) Sulfamethoxazole; Translations: [SULFAMETHOXAZOLE] Allergy to substance 03-12-20 Unknown [facility] Healthcare (15 sources) Trimethoprim Drug Allergy 03-12-20 Unknown [facility] Healthcare Medications Current Medications Medication Drug [...] coronary artery bypass graft , Atherosclerosis of [place] coronary artery of [place] heart without angina pectoris , Paroxysmal atrial fibrillation (CMS-HCC) , Localized edema Take 1 tablet (81 mg total) by mouth daily. 90 tablet 3 01/11/2021 Active take 1 tablet by enzo th every twenty-four hours Aspirin 81 MG 1 tablet Orally Once a day Active atorvastatin 80 mg oral tablet (20 sources) HMG-CoA Reductase Inhibitor Start: 2024 take 1 tablet by mouth once daily atorvastatin (LIPITOR) 80 mg tablet Indications: Atherosclerosis of [place] coronary artery of [place] heart without angina pectoris , H/O four vessel coronary artery bypass graft , Hypertensive urgency , Shortness of breath , Paroxysmal atrial fibrillation (CMS-HCC) , Localized edema TAKE 1 TABLET BY MOUTH NIGHTLY 90 tablet 2024 Active Start: 12-27-2022 End: 2024 take 1 tablet by mouth once daily atorvastatin (LIPITOR) 80 mg tablet Indications: Atherosclerosis of [place] coronary artery of [place] heart without angina pectoris , H/O four vessel coronary artery bypass graft , Hypertensive urgency , Shortness of breath , Paroxysmal atrial fibrillation (CMS-HCC) , Localized edema take 1 tablet by mouth nightly 90 tablet 3 12/25/2023 2024 Discontinued ATORVASTATIN BASSAM CIUM PO Atorvastatin Calcium Active betamethasone 0.5 mg/ml topical cream (17 sources) Corticosteroid Start: 05-25-2024 End: 06-04-2024 betamethasone dipropionate 0.05 % cream Indications: Granuloma annulare Apply to affected areas, up to twice a day when flared, do not use one the face, groin, or underarms, 30 day supply 45 g 06/04/2024 Active calcium carbonate 1500 mg oral [...] Active docusate sodium 50 mg / sennosides, fci 8.6 mg oral tablet (5 sources) take 1 tablet by mouth every twelve hours Sennosides-Docusate Sodium 8.6-50 MG 1 tablet in the evening as needed Orally every 12 hours Active epoetin johnna-epbx 21579 UNT/ML Injectable Solution [Retacrit] (14 sources) Retacrit 12016 U NIT/ML as directed Injection Active ferrous [...] Units in the evening. Inject with meals. 07-18-15 according to meal size (plus sliding scale [...] mononitrate 30 mg extended release oral tablet (6 sources) Nitrate Vasodilator Start: 01-17-2024 take 1 [...] Daily Active take 2 tablets by mo [facility] every twenty-four hours Liothyronine Sodium 5 MCG 2 tablets on a n empty stomach Orally Once a day Active take 2 tablets by mo [facility] every twenty-four hours lisinopril 20 mg oral tablet (20 sources) Angiotensin Converting Enzyme Inhibitor Start: 01-17-2024 take 1 tablet by mouth in the morning lisinopriL (PRINIVIL,ZESTRIL) 20 mg tablet Take 1 tablet (20 mg total) by mouth in the morning. 01/17/2024 Active Start: 01-18-2022 take 1 tablet by enzo every twenty-four hours Lisinopril 10 MG 1 [...] 400 mg oral tablet (20 sources) Start: 2024 take 1 tablet by mouth three times daily magnesium oxide (MAGOX) 400 mg tablet TAKE 1 TABLET BY MOUTH THREE TIMES DAILY 270 tablet 2024 Active Start: 07-09-2023 End: 2024 take 1 tablet by mouth three times daily magnesium oxide (MAGOX) 400 mg tablet TAKE 1 TABLET BY MOUTH THREE TIMES DAILY 270 tablet 09/11/2024 2024 Discontinued take 1 tablet by enzo th every [...] For Her 50 + - Orally Active dfschrcbkxqu-jolc-lmmqqvii-f olic acid (Centrum) chewable tablet (15 sources) multivitamin-iro b-xhvnywhr-mkreq acid (Centrum) chewable tablet Chew 1 tablet [...] not crush, chew, or split.. Active retacrit 42970 unit/ml solution (5 sources) Retacrit 00603 U NIT/ML as directed Injection Active Sennosides-Docusate [...] UNSPECIFIED] Onset: 3 Episodic Administrative/socia l admission (6 sources) Patient encounter status; Translations: [Dietary counseling and surveillance] 07-13-2024 Episodic Cardiac dysrhythmias (13 sources) Paroxysmal atrial fibrillation; Translations: [Atrial fibrillation] Onset: 1 01-11-2021 Chronic Chronic kidney disease (20 sources) Chronic kidney disease stage 3; Translations: [Chronic kidney disease, stage 3 (moderate)] Onset: 2 Resolved: 2 Chronic Congestive heart failure; nonhypertensive (1 source) Unspecified diastolic (congestive) heart failure; Translations: [UNSPECIFIED DIASTOLIC HEART FAILURE] Onset: 2 Chronic Coronary atherosclerosis and other heart disease (20 sources) Other forms of angina pectoris; Translations: [Atherosclerotic heart disease of [place] coronary artery without angina pectoris] Onset: 1 01-17-2024 Chronic Deficiency and other anemia (20 sources) [...] Resolved: 2 Chronic Diabetes mellitus without complication (10 sources) Type 2 diabetes mellitus without complication; Translations: [Type 2 diabetes mellitus without complications] 06-25-2024 Chronic Disorders of lipid metabolism (14 sources) Mixed hyperlipidemia; Translations: [Mixed hyperlipidemia] Onset: 2 07-13-2024 Chronic Essential hypertension (20 sources) Hypertensive disorder; Translations: [Essential (primary) hypertension] Onset: 1 07-13-2024 Chronic Fluid and electrolyte disorders (8 sources) [...] [Vitamin D deficiency, unspecified] 07-13-2024 Chronic Osteoarthritis (8 sources) Arthritis; Translations: [Unspecified osteoarthritis, unspecified site] 11-23-2020 Chronic Other aftercare (4 sources) Long-term 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; Translations: [senior care (current) use of insulin] 07-13-2024 Episodic [...] Chronic Other lower respiratory disease (4 sources) Shortness of breath; Translations: [Dyspnea] Onset: 4 12-21-2023 Episodic Other lower respiratory disease (8 sources) Dyspnea; Translations: [Dyspnea, unspecified] 11-23-2020 Episodic Other nutritional; endocrine; and metabolic disorders (20 sources) Hypomagnesemia; Translations: [Hypomagnesemia] Chronic Other nutritional; endocrine; and metabolic disorders (20 sources) Obese class I; Translations: [Body mass index (BMI) 31.0-31.9, adult] Chronic Other nutritional; endocrine; and metabolic disorders (16 sources) Body mass index 30+ - obesity; Translations: [Obesity, unspecified] Onset: 1 01-11-2021 Chronic Other nutritional; endocrine; and metabolic disorders (8 sources) Obesity; Translations: [Obesity, unspecified] Onset: 2 [...] edema; Translations: [Localized edema] Onset: 4 Episodic Residual codes; unclassified (3 sources) Localized edema; Translations: [Localized edema] 12-21-2023 Episodic Thyroid disorders (4 sources) Pema thyroiditis; [...] Translations: [Weakness] Onset: 09-13-2022 Episodic Mood disorders (8 sources) Mood disorders Onset: 12-28-2020 12-28-2020 Nonspecific [...] Value Interpretation Reference Range Facility Office Visiton 11-27-2024 Follow-up visit [id number] Kylah Robin 1945 F Date Provider Department Center 11/27/2024 ALEJANDRO ESTEVES [facility] Family History Family history unknown: Yes Level of Service:74353 IN OFFICE/OUTPATIENT ESTABLISHED MOD MDM 30 MIN Normal [facility] Glucose (Bld) [Mass/Vol]Orde red By: Maria Antonia Mo on 11-16-2024 Glucose Blood, POC 220 mg/dL [facility] - Hematology and Cell countson 11-16-2024 HbA1c (Bld) [Mass fraction] 7 % [facility] No Panel InformationOrdered By: Maria Antonia Mo on 11-16-[address] [facility] Glucose (Bld) [Mass/Vol]Orde red By: Maria Antonia Mo on 07-13-2024 Glucose Blood, POC 180 mg/dL [facility] No Panel Informationon 05-25 Type of biopsy: [...] Specimen sent for: H&E Photo taken yes [facility] No Panel InformationOrdered By: Philomena Salter on 05-25-2024 [facility] Office Visiton 05-11-2024 Follow-up visit [id number] Kylah Robin 1945 F Date Provider [facility] No family history on file Level of Service:89469 IN OFFICE/OUTPATIENT ESTABLISHED MOD MDM 30 MIN Normal [facility] Office Visiton 02-10-2024 Follow-up visit [id number] Kylah Robin 1945 Date Provider Department [facility] No family history on file Level of Service:42376 IN OFFICE/OUTPATIENT ESTABLISHED MOD MDM 30 MIN Normal [facility] POCT EKGon 01-17-[address] [facility] HEMOGRAM AND PLATELon 2022 Hematocrit (Bld) [Volume fraction] 28.8 % Critically low 36.0-48.0 [facility] Comment on above: Performed By: #### H H #### [facility] [address] [place] [address] Dr. Ember Teague Hemoglobin (Bld) [Mass/Vol] 9.6 g/dL Critically low 12.0-16.0 [facility] Comment on above: Performed By: #### H H #### [facility] [address] [place] [address] Dr. Ember Teague MCH (RBC) [Entitic mass] 30.7 pg Normal 26.7-34.0 [facility] Comment on above: Performed By: #### H H #### [facility] [address] [place] [address] Dr. Ember Teague MCHC (RBC) [Mass/Vol] 33.3 g/dL Normal 29.9-35.2 [facility] Comment on above: Performed By: #### H H #### [facility] [address] [address] [address] Ember Teague MCV (RBC) [Entitic vol] 92.0 fL Normal 81.0-99.0 [facility] Comment on above: Performed By: #### H H #### [facility] [address] [place] [address] Dr. Ember Teague PLT 214 103/ul Normal 150-450 [facility] Comment on above: Performed By: #### H H #### [facility] [address] [place] [address] Dr. Ember Teague RBC 3.13 106/ul Critically low 4.20-5.40 [facility] Comment on above: Performed By: #### H H #### [facility] [address] [place] [address] Dr. Ember Teague WBC 7.4 103/ul Normal 4.0-11.0 [facility] Comment on above: Performed By: #### H H #### [facility] [address] [place] [address] Dr. Ember Teague MAGNESIUMon 01-22-2023 Magnesium [Mass/Vol] 1.8 mg/dL Normal 1.8-2.4 [facility] Comment on above: Performed By: #### M G, RENAL #### [facility] [address] [place] [address] Dr. Ember Teague RENAL FUNCTION PANELon 01-22 Albumin [Mass/Vol] 3.6 g/dL Normal 3.4-5.0 [facility] Comment on above: Performed By: #### M G, RENAL #### [facility] [address] [place] [address] Dr. Ember Teague Calcium [Mass/Vol] 9.7 mg/dL Normal 8.5-10.1 [facility] Comment on above: Performed By: #### M G, RENAL #### [facility] [address] [place] [address] Dr. Ember Teague Chloride [Moles/Vol] 105 mmol/L Normal 98-107 [facility] Comment on above: Performed By: #### M G, RENAL #### [facility] [address] [address] [address] Ember Teague CO2 [Moles/Vol] 22.6 mmol/L Normal 21.0-32.0 [facility] Comment on above: Performed By: #### M G, RENAL #### [facility] [address] [address] [address] Ember Teague Creatinine [Mass/Vol] 2.18 mg/dL Critically high 0.55-1.02 [facility] Comment on above: Performed By: #### M G, RENAL #### [facility] [address] [address] [address] Ember Teague EGFR-AF IRANIAN 26 mL/min/1.73m2 Critically low >=60 [facility] Comment on above: Performed By: #### M G, RENAL #### [facility] [address] [place] [address] Dr. Ember Teague EGFR-NON AF IRANIAN 22 mL/min/1.73m2 Critically low >=60 [facility] Comment on above: Performed By: #### M G, RENAL #### [facility] [address] [address] [address] Ember Teague Glucose [Mass/Vol] 134 mg/dL Critically high 74-106 [facility] Comment on above: Performed By: #### M G, RENAL #### [facility] [address] [place] [address] Dr. Ember Teague Phosphate [Mass/Vol] 4.6 mg/dL Normal 2.6-4.7 [facility] Comment on above: Performed By: #### M G, RENAL #### [facility] [address] [address] [address] Ember Teague Potassium [Moles/Vol] 5.1 mmol/L Normal 3.5-5.1 [facility] Comment on above: Performed By: #### M G, RENAL #### [facility] [address] [address] [address] Ember Teague Sodium [Moles/Vol] 138 mmol/L Normal 136-145 [facility] Comment on above: Performed By: #### M G, RENAL #### [facility] [address] [address] [address] Ember Teague Urea nitrogen [Mass/Vol] 61.0 mg/dL Critically high 7.0-18.0 [facility] Comment on above: Performed By: #### M G, RENAL #### [facility] [id number] Ember Teague MG MAMM SCREEN 3D MAY CADon 12-17-2022 MG MAMM SCREEN 3D MAY CAD Patient: KYLAH ROBIN Exam Date: 12/17/2022 : 1945 Gender:F Ordering : DR DHRUV RUBI . Admission #: [id number] Family : Order #: [id number] CLICK HERE TO VIEW EXAM RADIOLOGY REPORT [...] lung cancer at age 61. LOCATION: [facility] BREAST COMPOSITION: Scattered areas fibroglandular [...] MD on 12/17/2022 at 11:59 Normal [facility] FERRITINon 12-10-2022 Ferritin [Mass/Vol] 681.0 ng/mL Critically high 8.0-252.0 [facility] Comment on above: Performed By: #### P THINT #### [facility] [address] [place] [address] Dr. Ember Teague HEMOGRAM AND PLATELon 2022 Hematocrit (Bld) [Volume fraction] 27.1 % Critically low 36.0-48.0 [facility] Comment on above: Performed By: #### C VDTBH #### [facility] [address] [place] [address] Dr. Ember Teague Hemoglobin (Bld) [Mass/Vol] 9.7 g/dL Critically low 12.0-16.0 [facility] Comment on above: Performed By: #### C VDTBH #### [facility] [address] [place] [address] Dr. Ember Teague MCH (RBC) [Entitic mass] 31.4 pg Normal 26.7-34.0 [facility] Comment on above: Performed By: #### C VDTBH #### [facility] [address] [place] [address] Dr. Ember Teague MCHC (RBC) [Mass/Vol] 35.8 g/dL Critically high 29.9-35.2 [facility] Comment on above: Performed By: #### C VDTBH #### [facility] [address] [place] [address] Dr. Ember Teague MCV (RBC) [Entitic vol] 87.7 fL Normal 81.0-99.0 [facility] Comment on above: Performed By: #### C VDTBH #### [facility] [address] [place] [address] Dr. Ember Teague PLT 218 103/ul Normal 150-450 [facility] Comment on above: Performed By: #### C VDTBH #### [facility] [address] [place] [address] Dr. Ember Teague RBC 3.09 106/ul Critically low 4.20-5.40 [facility] Comment on above: Performed By: #### C VDTBH #### [facility] [address] [place] [address] Dr. Ember Teague WBC 6.6 103/ul Normal 4.0-11.0 [facility] Comment on above: Performed By: #### C VDTBH #### [facility] [address] [address] [address] Ember Teague IRON AND TIBCon 12-10-2022 % SATURATION 30.2 % Normal [facility] Comment on above: Performed By: #### P THINT #### [facility] [address] [address] [address] Ember Teague Iron [Mass/Vol] 84.0 ug/dL Normal 50.0-170.0 [facility] Comment on above: Performed By: #### P THINT #### [facility] [address] [address] [address] Ember Teague TIBC DIRECT 278.0 ug/dL Normal 250.0-450.0 [facility] Comment on above: Performed By: #### P THINT #### [facility] [address] [place] [address] Dr. Ember Teague XR FOOT MAY MIN [...] BENI APARICIO Date: 2022-11-20 14:03 Normal [facility] HEMOGRAM AND PLATELon 2022 Hematocrit (Bld) [Volume fraction] 27.7 % Critically low 36.0-48.0 [facility] Comment on above: Performed By: #### R ENAL #### [facility] [address] [place] [address] Dr. Ember Teague Hemoglobin (Bld) [Mass/Vol] 10.0 g/dL Critically low 12.0-16.0 [facility] Comment on above: Performed By: #### R ENAL #### [facility] [address] [place] [address] Dr. Ember Teague MCH (RBC) [Entitic mass] 31.6 pg Normal 26.7-34.0 [facility] Comment on above: Performed By: #### R ENAL #### [facility] [address] [place] [address] Dr. Ember Teague MCHC (RBC) [Mass/Vol] 36.1 g/dL Critically high 29.9-35.2 [facility] Comment on above: Performed By: #### R ENAL #### [facility] [address] [place] [address] Dr. Ember Teague MCV (RBC) [Entitic vol] 87.7 fL Normal 81.0-99.0 [facility] Comment on above: Performed By: #### R ENAL #### [facility] [address] [place] [address] Dr. Ember Teague PLT 182 103/ul Normal 150-450 [facility] Comment on above: Performed By: #### R ENAL #### [facility] [address] [place] [address] Dr. Ember Teague RBC 3.16 106/ul Critically low 4.20-5.40 [facility] Comment on above: Performed By: #### R ENAL #### [facility] [address] [place] [address] Dr. Ember Teague WBC 6.8 103/ul Normal 4.0-11.0 [facility] Comment on above: Performed By: #### R ENAL #### [facility] [address] [place] [address] Dr. Ember Teague PROF CHEM 8 (BAS METB)on Anion gap [Moles/Vol] 17.6 mmol/L Normal [facility] Comment on above: Performed By: #### C VDTBH #### [facility] [address] [address] [address] Ember Teague Calcium [Mass/Vol] 9.0 mg/dL Normal 8.5-10.1 [facility] Comment on above: Performed By: #### C VDTBH #### [facility] [address] [address] [address] Ember Teague Chloride [Moles/Vol] 104 mmol/L Normal 98-107 [facility] Comment on above: Performed By: #### C VDTBH #### [facility] [address] [place] [address] Dr. Ember Teague CO2 [Moles/Vol] 22.2 mmol/L Normal 21.0-32.0 [facility] Comment on above: Performed By: #### C VDTBH #### [facility] [address] [place] [address] Dr. Ember Teague Creatinine [Mass/Vol] 2.03 mg/dL Critically high 0.55-1.02 [facility] Comment on above: Performed By: #### C VDTBH #### [facility] [address] [address] [address] Ember Teague EGFR-AF IRANIAN 29 mL/min/1.73m2 Critically low >=60 [facility] Comment on above: Performed By: #### C VDTBH #### [facility] [address] [place] [address] Dr. Ember Teague EGFR-NON AF IRANIAN 24 mL/min/1.73m2 Critically low >=60 [facility] Comment on above: Performed By: #### C VDTBH #### [facility] [address] [place] [address] Dr. Ember Teague Glucose [Mass/Vol] 154 mg/dL Critically high 74-106 [facility] Comment on above: Performed By: #### C VDTBH #### [facility] [address] [place] [address] Dr. Ember Teague Potassium [Moles/Vol] 4.8 mmol/L Normal 3.5-5.1 [facility] Comment on above: Performed By: #### C VDTBH #### [facility] [address] [address] [address] Ember Teague Sodium [Moles/Vol] 139 mmol/L Normal 136-145 [facility] Comment on above: Performed By: #### C VDTBH #### [facility] [address] [address] [address] Ember Teague Urea nitrogen [Mass/Vol] 43.0 mg/dL Critically high 7.0-18.0 [facility] Comment on above: Performed By: #### C VDTBH #### [facility] [address] [address] [address] Ember Teague Urea nitrogen/Creatinine [Mass ratio] 21.2 mg/mg Normal [facility] Comment on above: Performed By: #### C VDTBH #### [facility] [address] [place] [address] Dr. Ember Teague CULTURE SPUTUMon 10-24-2022 CULTURE SPUTUM Culture Observations: Beta lactamase positive Isolate 1 Haemophilus influenzae Moderate growth of Normal [facility] Comment on above: Performed By: #### R ENAL #### [facility] [address] [address] [address] Ember Teague SPUTUM GRAM STAINon 10-24-19 23 COMMENTS Normal [facility] Comment on above: Performed By: #### R ENAL #### [facility] [address] [place] [address] Dr. Ember Teague DIPHTHEROIDS Normal [facility] Comment on above: Performed By: #### R ENAL #### [facility] [address] [place] [address] Dr. Ember Teague EPITHELIALS >25 Normal [facility] Comment on above: Performed By: #### R ENAL #### [facility] [address] [place] [address] Dr. Ember Teague FUNGAL ELEMENTS Normal [facility] Comment on above: Performed By: #### R ENAL #### [facility] [address] [address] [address] Ember Teague GRAM NEG BACILLI Normal [facility] Comment on above: Performed By: #### R ENAL #### [facility] [address] [address] [address] Ember Teague GRAM NEG DIPPLOCOCCI FEW Normal [facility] Comment on above: Performed By: #### R ENAL #### [facility] [address] [address] [address] Ember Teague GRAM POS BACILLI FEW Normal [facility] Comment on above: Performed By: #### R ENAL #### [facility] [address] [address] [address] Ember Teague GRAM POSITIVE COCCI MANY Normal [facility] Comment on above: Performed By: #### R ENAL #### [facility] [address] [address] [address] Ember Teague WBC (Bld) [#/Vol] 10*3/uL Normal [facility] Comment on above: Performed By: #### R ENAL #### [facility] [address] [address] [address] Ember Teague XR CHEST 2 Von [...] ANGELINA BRISENO Date: 2022-10-24 16:22 Normal [facility] FERRITINon 09-18-2022 Ferritin [Mass/Vol] 612.0 ng/mL Critically high 8.0-252.0 [facility] Comment on above: Performed By: #### F ERR, FETIBC #### [facility] [address] [address] [address] Ember Teague HEMOGRAM AND PLATELon 09-18 Hematocrit (Bld) [Volume fraction] 28.1 % Critically low 36.0-48.0 [facility] Comment on above: Performed By: #### C BC #### [facility] [address] [place] [address] Dr. Ember Teague Hemoglobin (Bld) [Mass/Vol] 9.7 g/dL Critically low 12.0-16.0 [facility] Comment on above: Performed By: #### C BC #### [facility] [address] [place] [address] Dr. Ember Teague MCH (RBC) [Entitic mass] 31.3 pg Normal 26.7-34.0 [facility] Comment on above: Performed By: #### C BC #### [facility] [address] [place] [address] Dr. Ember Teague MCHC (RBC) [Mass/Vol] 34.5 g/dL Normal 29.9-35.2 [facility] Comment on above: Performed By: #### C BC #### [facility] [address] [place] [address] Dr. Ember Teague MCV (RBC) [Entitic vol] 90.6 fL Normal 81.0-99.0 [facility] Comment on above: Performed By: #### C BC #### [facility] [address] [place] [address] Dr. Ember Teague PLT 183 103/ul Normal 150-450 [facility] Comment on above: Performed By: #### C BC #### [facility] [address] [place] [address] Dr. Ember Teague RBC 3.10 106/ul Critically low 4.20-5.40 [facility] Comment on above: Performed By: #### C BC #### [facility] [address] [place] [address] Dr. Ember Teague WBC 7.2 103/ul Normal 4.0-11.0 [facility] Comment on above: Performed By: #### C BC #### [facility] [address] [place] [address] Dr. Ember Teague IRON AND TIBCon 09-18-2022 % SATURATION 36.0 % Normal [facility] Comment on above: Performed By: #### F ERR, FETIBC #### [facility] [address] [place] [address] Dr. Ember Teague Iron [Mass/Vol] 77.0 ug/dL Normal 50.0-170.0 [facility] Comment on above: Performed By: #### F ERR, FETIBC #### [facility] [address] [place] [address] Dr. Ember Teague TIBC DIRECT 214.0 ug/dL Critically low 250.0-450.0 [facility] Comment on above: Performed By: #### F ERR, FETIBC #### [facility] [address] [place] [address] Dr. Ember Teague RENAL FUNCTION PANELon 09-18 Albumin [Mass/Vol] 3.7 g/dL Normal 3.4-5.0 [facility] Comment on above: Performed By: #### R ENAL #### [facility] [address] [place] [address] Dr. Ember Teague Calcium [Mass/Vol] 9.5 mg/dL Normal 8.5-10.1 [facility] Comment on above: Performed By: #### R ENAL #### [facility] [address] [place] [address] Dr. Ember Teague Chloride [Moles/Vol] 103 mmol/L Normal 98-107 [facility] Comment on above: Performed By: #### R ENAL #### [facility] [address] [place] [address] Dr. Ember Teague CO2 [Moles/Vol] 21.1 mmol/L Normal 21.0-32.0 [facility] Comment on above: Performed By: #### R ENAL #### [facility] [address] [place] [address] Dr. Ember Teague Creatinine [Mass/Vol] 1.85 mg/dL Critically high 0.55-1.02 [facility] Comment on above: Performed By: #### R ENAL #### [facility] [address] [place] [address] Dr. Ember Teague EGFR-AF IRANIAN 32 mL/min/1.73m2 Critically low >=60 [facility] Comment on above: Performed By: #### R ENAL #### [facility] [address] [place] [address] Dr. Ember Teague EGFR-NON AF IRANIAN 26 mL/min/1.73m2 Critically low >=60 [facility] Comment on above: Performed By: #### R ENAL #### [facility] [address] [address] [address] Ember Teague Glucose [Mass/Vol] 183 mg/dL Critically high 74-106 [facility] Comment on above: Performed By: #### R ENAL #### [facility] [address] [place] [address] Dr. Ember Teague Phosphate [Mass/Vol] 3.7 mg/dL Normal 2.6-4.7 [facility] Comment on above: Performed By: #### R ENAL #### [facility] [address] [address] [address] Ember Teague Potassium [Moles/Vol] 4.9 mmol/L Normal 3.5-5.1 [facility] Comment on above: Performed By: #### R ENAL #### [facility] [address] [place] [address] Dr. Ember Teague Sodium [Moles/Vol] 138 mmol/L Normal 136-145 [facility] Comment on above: Performed By: #### R ENAL #### [facility] [address] [place] [address] Dr. Ember Teague Urea nitrogen [Mass/Vol] 40.0 mg/dL Critically high 7.0-18.0 [facility] Comment on above: Performed By: #### R ENAL #### [facility] [address] [place] [address] Dr. Ember Teague CULTURE URINEon 09-15-2022 CULTURE [...] F Trimethoprim/Sulfam ethoxazole <=20 S F Normal [facility] Comment on above: Performed By: #### R ENAL #### [facility] [address] [place] [address] Dr. Ember Teague BNPon 09-11-2022 Natriuretic peptide B (Bld) [Mass/Vol] 408.0 pg/mL Normal <=1,800.0 [facility] Comment on above: Performed By: #### P THINT #### [facility] [address] [place] [address] Dr. Ember Teague CBC AUTO DIFFon 09-11-2022 BASO # 0.0 103/ul Normal 0.0-0.1 [facility] Comment on above: Performed By: #### C BC #### [facility] [address] [place] [address] Dr. Ember Teague Basophils/100 WBC (Bld) 0.3 % Normal 0.2-2.0 [facility] Comment on above: Performed By: #### C BC #### [facility] [address] [place] [address] Dr. Ember Teague EO # 0.1 103/ul Normal 0.0-0.7 [facility] Comment on above: Performed By: #### C BC #### [facility] [address] [place] [address] Dr. Ember Teague Eosinophils/100 WBC (Bld) 1.9 % Normal 0.9-7.0 [facility] Comment on above: Performed By: #### C BC #### [facility] [address] [place] [address] Dr. Ember Teague Erythrocyte distribution width (RBC) [Ratio] 15.2 % Critically high 11.0-15.0 [facility] Comment on above: Performed By: #### C BC #### [facility] [address] [place] [address] Dr. Ember Teague Hematocrit (Bld) [Volume fraction] 26.6 % Critically low 36.0-48.0 [facility] Comment on above: Performed By: #### C BC #### [facility] [address] [place] [address] Dr. Ember Teague Hemoglobin (Bld) [Mass/Vol] 9.0 g/dL Critically low 12.0-16.0 [facility] Comment on above: Performed By: #### C BC #### [facility] [address] [place] [address] Dr. Ember Teague IG # 0.02 10e3/ul Normal 0.00-0.03 [facility] Comment on above: Performed By: #### C BC #### [facility] [address] [place] [address] Dr. Ember Teague IG % 0.3 % Normal 0.0-0.5 [facility] Comment on above: Performed By: #### C BC #### [facility] [address] [place] [address] Dr. Ember Teague LYMPH # 1.9 103/ul Normal 1.2-3.8 [facility] Comment on above: Performed By: #### C BC #### [facility] [address] [place] [address] Dr. Ember Teauge Lymphocytes/100 WBC (Bld) 32.4 % Normal 20.5-60.0 [facility] Comment on above: Performed By: #### C BC #### [facility] [address] [place] [address] Dr. Ember Teague MANUAL DIFF REQ NO Normal [facility] Comment on above: Performed By: #### C BC #### [facility] [address] [place] [address] Dr. Ember Teague MCH (RBC) [Entitic mass] 31.1 pg Normal 26.7-34.0 [facility] Comment on above: Performed By: #### C BC #### [facility] [address] [address] [address] Ember Teague MCHC (RBC) [Mass/Vol] 33.8 g/dL Normal 29.9-35.2 [facility] Comment on above: Performed By: #### C BC #### [facility] [address] [place] [address] Dr. Ember Teague MCV (RBC) [Entitic vol] 92.0 fL Normal 81.0-99.0 [facility] Comment on above: Performed By: #### C BC #### [facility] [address] [place] [address] Dr. Ember Teague MONO # 0.6 103/ul Normal 0.3-0.8 [facility] Comment on above: Performed By: #### C BC #### [facility] [address] [place] [address] Dr. Ember Teague Monocytes/100 WBC (Bld) 10.0 % Normal 1.7-12.0 [facility] Comment on above: Performed By: #### C BC #### [facility] [address] [place] [address] Dr. Ember Teague NEUT # 3.2 103/ul Normal 1.4-6.5 [facility] Comment on above: Performed By: #### C BC #### [facility] [address] [place] [address] Dr. Ember Teague Neutrophils/100 WBC (Bld) 55.1 % Normal 43.0-75.0 [facility] Comment on above: Performed By: #### C BC #### [facility] [address] [place] [address] Dr. Ember Teague Platelet mean volume (Bld) [Entitic vol] 9.4 fL Critically low 9.5-13.5 [facility] Comment on above: Performed By: #### C BC #### [facility] [address] [place] [address] Dr. Ember Teague PLT 196 103/ul Normal 150-450 [facility] Comment on above: Performed By: #### C BC #### [facility] [address] [place] [address] Dr. Ember Teague RBC 2.89 106/ul Critically low 4.20-5.40 [facility] Comment on above: Performed By: #### C BC #### [facility] [address] [place] [address] Dr. Ember Teague WBC 5.8 103/ul Normal 4.0-11.0 [facility] Comment on above: Performed By: #### C BC #### [facility] [address] [place] [address] Dr. Ember Teague PROF 14(COMP METB)on 022 Albumin [Mass/Vol] 3.7 g/dL Normal 3.4-5.0 [facility] Comment on above: Performed By: #### P THINT #### [facility] [address] [place] [address] Dr. Ember Teague Albumin/Globulin [Mass ratio] 1.0 {ratio} Normal [facility] Comment on above: Performed By: #### P THINT #### [facility] [address] [place] [address] Dr. Ember Teague ALP [Catalytic activity/Vol] 79 U/L Normal 46-116 [facility] Comment on above: Performed By: #### P THINT #### [facility] [address] [place] [address] Dr. Ember Teague ALT [Catalytic activity/Vol] 24 U/L Normal 14-59 [facility] Comment on above: Performed By: #### P THINT #### [facility] [address] [place] [address] Dr. Ember Teague Anion gap [Moles/Vol] 12.8 mmol/L Normal [facility] Comment on above: Performed By: #### P THINT #### [facility] [address] [place] [address] Dr. Ember Teague AST [Catalytic activity/Vol] 17 U/L Normal 15-37 [facility] Comment on above: Performed By: #### P THINT #### [facility] [address] [place] [address] Dr. Ember Teague Bilirubin [Mass/Vol] 0.5 mg/dL Normal 0.2-1.0 [facility] Comment on above: Performed By: #### P THINT #### [facility] [address] [address] [address] Ember Teague Calcium [Mass/Vol] 9.4 mg/dL Normal 8.5-10.1 [facility] Comment on above: Performed By: #### P THINT #### [facility] [address] [address] [address] Ember Teague Chloride [Moles/Vol] 101 mmol/L Normal 98-107 [facility] Comment on above: Performed By: #### P THINT #### [facility] [address] [place] [address] Dr. Ember Teague CO2 [Moles/Vol] 24.3 mmol/L Normal 21.0-32.0 [facility] Comment on above: Performed By: #### P THINT #### [facility] [address] [place] [address] Dr. Ember Teague Creatinine [Mass/Vol] 2.84 mg/dL Critically high 0.55-1.02 [facility] Comment on above: Performed By: #### P THINT #### [facility] [address] [place] [address] Dr. Ember Teague EGFR-AF IRANIAN 20 mL/min/1.73m2 Critically low >=60 [facility] Comment on above: Performed By: #### P THINT #### [facility] [address] [place] [address] Dr. Ember Teague EGFR-NON AF IRANIAN 16 mL/min/1.73m2 Critically low >=60 [facility] Comment on above: Performed By: #### P THINT #### [facility] [address] [place] [address] Dr. Ember Teague Globulin (S) [Mass/Vol] 3.7 g/dL Normal T [facility] Comment on above: Performed By: #### P THINT #### [facility] [address] [place] [address] Dr. Ember Teague Glucose [Mass/Vol] 174 mg/dL Critically high 74-106 T [facility] Comment on above: Performed By: #### P THINT #### [facility] [address] [address] [address] Ember Teague Potassium [Moles/Vol] 5.1 mmol/L Normal 3.5-5.1 [facility] Comment on above: Performed By: #### P THINT #### [facility] [address] [address] [address] Ember Teague Protein [Mass/Vol] 7.4 g/dL Normal 6.4-8.2 [facility] Comment on above: Performed By: #### P THINT #### [facility] [address] [place] [address] Dr. Ember Teague Sodium [Moles/Vol] 133 mmol/L Critically low 136-145 [facility] Comment on above: Performed By: #### P THINT #### [facility] [address] [place] [address] Dr. Ember Teague Urea nitrogen [Mass/Vol] 68.0 mg/dL Critically high 7.0-18.0 [facility] Comment on above: Performed By: #### P THINT #### [facility] [address] [place] [address] Dr. Ember Teague Urea nitrogen/Creatinine [Mass ratio] 23.9 mg/mg Normal [facility] Comment on above: Performed By: #### P THINT #### [facility] [address] [place] [address] Dr. Ember Teague TROPONIN, HIGH SENSITIVITYon 09-11-2022 HSTROP 9.1 pg/mL Normal 4.0-51.3 [facility] Comment on above: Result Comment: CUT- OFF POINTS HAVE BEEN ESTABLISHED BASED ON THE FOURTH UNIVERSAL DEFINITIONS OF MYOCARDIAL INFARCTION. THE UPPER REFERENCE LIMIT (URL) OF TROPONIN, DEFINED THE 99TH PERCENTILE OF cTnI DISTRIBUTION IN A REFERENCE POPULATION, HAS BEEN CONFIRMED THE DECISION THRESHOLD FOR WI DIAGNOSIS. Performed By: #### P THINT #### [facility] [address] [place] [address] Dr. Ember Teague UA RANDOM W/MICROSCOPICon BACTERIA NONE SEEN Normal NONE SEEN [facility] Comment on above: Performed By: #### C VDTBH #### [facility] [address] [place] [address] Dr. Ember Teague Bilirubin Ql (U) Negative Normal NEGATIVE [facility] Comment on above: Performed By: #### C VDTBH #### [facility] [address] [place] [address] Dr. Ember Teague CAST NONE SEEN Normal NONE SEEN [facility] Comment on above: Performed By: #### C VDTBH #### [facility] [address] [place] [address] Dr. Ember Teague Clarity (U) CLEAR Normal CLEAR [facility] Comment on above: Performed By: #### C VDTBH #### [facility] [address] [place] [address] Dr. Ember Teague Color (U) LT. YELLOW Normal YELLOW [facility] Comment on above: Performed By: #### C VDTBH #### [facility] [address] [place] [address] Dr. Ember Teague Crystals LM Nom (Urine sed) NONE SEEN Normal NONE SEEN [facility] Comment on above: Performed By: #### C VDTBH #### [facility] [address] [place] [address] Dr. Ember Teague Epithelial cells LM Ql (Urine sed) FEW Abnormal NONE SEEN /RARE [facility] Comment on above: Performed By: #### C VDTBH #### [facility] [address] [place] [address] Dr. Ember Teague Glucose Ql (U) Negative Normal NEGATIVE [facility] Comment on above: Performed By: #### C VDTBH #### [facility] [address] [place] [address] Dr. Ember Teague Hemoglobin Ql (U) Negative Normal NEGATIVE [facility] Comment on above: Performed By: #### C VDTBH #### [facility] [address] [place] [address] Dr. Ember Teague Ketones Ql (U) Negative Normal NEGATIVE [facility] Comment on above: Performed By: #### C VDTBH #### [facility] [address] [place] [address] Dr. Ember Teague LEUKOCYTES Negative Normal NEGATIVE [facility] Comment on above: Performed By: #### C VDTBH #### [facility] [address] [place] [address] Dr. Ember Teague MUCOUS NONE SEEN Normal NONE SEEN [facility] Comment on above: Performed By: #### C VDTBH #### [facility] [address] [place] [address] Dr. Ember Teague Nitrite Ql (U) Negative Normal NEGATIVE [facility] Comment on above: Performed By: #### C VDTBH #### [facility] [address] [place] [address] Dr. Ember Teague pH (U) 5.5 [pH] Normal 5-9 [facility] Comment on above: Performed By: #### C VDTBH #### [facility] [address] [place] [address] Dr. Ember Teague RBC NONE SEEN Abnormal 0-2 [facility] Comment on above: Performed By: #### C VDTBH #### [facility] [address] [place] [address] Dr. Ember Teague SPEC GRAVITY 1.010 Normal 1.005-<=1.025 [facility] Comment on above: Performed By: #### C VDTBH #### [facility] [address] [place] [address] Dr. Ember Teague UA PROTEIN Negative Normal NEGATIVE/ TRACE [facility] Comment on above: Performed By: #### C VDTBH #### [facility] [address] [place] [address] Dr. Ember Teague Urobilinogen Qn (U) 0.2 {Esau'U}/dL Normal 0.2 - 1. 0 [facility] Comment on above: Performed By: #### C VDTBH #### [facility] [address] [place] [address] Dr. Ember Teague WBC NONE SEEN Normal NONE SEEN [facility] Comment on above: Performed By: #### C VDTB #### [facility] [address] [place] [address] Dr. Ember Teague CBC AUTO DIFFon 08-13-2022 BASO # 0.0 103/ul Normal 0.0-0.1 [facility] Comment on above: Performed By: #### C BC #### [facility] [address] [place] [address] Dr. Ember Teague Basophils/100 WBC (Bld) 0.3 % Normal 0.2-2.0 [facility] Comment on above: Performed By: #### C BC #### [facility] [address] [place] [address] Dr. Ember Teague EO # 0.2 103/ul Normal 0.0-0.7 [facility] Comment on above: Performed By: #### C BC #### [facility] [address] [place] [address] Dr. Ember Teague Eosinophils/100 WBC (Bld) 3.7 % Normal 0.9-7.0 [facility] Comment on above: Performed By: #### C BC #### [facility] [address] [place] [address] Dr. Ember Teague Erythrocyte distribution width (RBC) [Ratio] 15.0 % Normal 11.0-15.0 [facility] Comment on above: Performed By: #### C BC #### [facility] [address] [place] [address] Dr. Ember Teague Hematocrit (Bld) [Volume fraction] 27.9 % Critically low 36.0-48.0 [facility] Comment on above: Performed By: #### C BC #### [facility] [address] [place] [address] Dr. Ember Teague Hemoglobin (Bld) [Mass/Vol] 9.7 g/dL Critically low 12.0-16.0 [facility] Comment on above: Performed By: #### C BC #### [facility] [address] [place] [address] Dr. Ember Teague IG # 0.01 10e3/ul Normal 0.00-0.03 [facility] Comment on above: Performed By: #### C BC #### [facility] [address] [place] [address] Dr. Ember Teague IG % 0.2 % Normal 0.0-0.5 [facility] Comment on above: Performed By: #### C BC #### [facility] [address] [place] [address] Dr. Ember Teague LYMPH # 1.9 103/ul Normal 1.2-3.8 [facility] Comment on above: Performed By: #### C BC #### [facility] [address] [place] [address] Dr. Ember Teague Lymphocytes/100 WBC (Bld) 32.2 % Normal 20.5-60.0 [facility] Comment on above: Performed By: #### C BC #### [facility] [address] [place] [address] Dr. Ember Teague MANUAL DIFF REQ NO Normal [facility] Comment on above: Performed By: #### C BC #### [facility] [address] [place] [address] Dr. Ember Teague MCH (RBC) [Entitic mass] 31.4 pg Normal 26.7-34.0 [facility] Comment on above: Performed By: #### C BC #### [facility] [facility] [address] [place] [address] Dr. Ember Teague MCHC (RBC) [Mass/Vol] 34.8 g/dL Normal 29.9-35.2 [facility] Comment on above: Performed By: #### C BC #### [facility] [address] [place] [address] Dr. Ember Teague MCV (RBC) [Entitic vol] 90.3 fL Normal 81.0-99.0 [facility] Comment on above: Performed By: #### C BC #### [facility] [address] [place] [address] Dr. Ember Teague MONO # 0.6 103/ul Normal 0.3-0.8 [facility] Comment on above: Performed By: #### C BC #### [facility] [address] [place] [address] Dr. Ember Teague Monocytes/100 WBC (Bld) 9.8 % Normal 1.7-12.0 [facility] Comment on above: Performed By: #### C BC #### [facility] [address] [place] [address] Dr. Ember Teague NEUT # 3.2 103/ul Normal 1.4-6.5 [facility] Comment on above: Performed By: #### C BC #### [facility] [address] [place] [address] Dr. Ember Teague Neutrophils/100 WBC (Bld) 53.8 % Normal 43.0-75.0 [facility] Comment on above: Performed By: #### C BC #### [facility] [address] [place] [address] Dr. Ember Teague Platelet mean volume (Bld) [Entitic vol] 10.0 fL Normal 9.5-13.5 [facility] Comment on above: Performed By: #### C BC #### [facility] [address] [place] [address] Dr. Ember Teague PLT 194 103/ul Normal 150-450 [facility] Comment on above: Performed By: #### C BC #### [facility] [address] [place] [address] Dr. Ember Teague RBC 3.09 106/ul Critically low 4.20-5.40 [facility] Comment on above: Performed By: #### C BC #### [facility] [address] [place] [address] Dr. Ember Teague WBC 6.0 103/ul Normal 4.0-11.0 [facility] Comment on above: Performed By: #### C BC #### [facility] [address] [place] [address] Dr. Ember Teague PTH INTACTon 06-26-2022 PTH, Intact 39 pg/mL Normal 15-65 [facility] Comment on above: Performed By: #### P THINT #### [facility] [address] [place] [address] Dr. Ember Teague CBC AUTO DIFFon 06-25-2022 BASO # 0.1 103/ul Normal 0.0-0.1 [facility] Comment on above: Performed By: #### C VDTBH #### [facility] [address] [place] [address] Dr. Ember Teague Basophils/100 WBC (Bld) 0.6 % Normal 0.2-2.0 [facility] Comment on above: Performed By: #### C VDTBH #### [facility] [address] [place] [address] Dr. Ember Teague EO # 0.2 103/ul Normal 0.0-0.7 [facility] Comment on above: Performed By: #### C VDTBH #### [facility] [address] [place] [address] Dr. Ember Teague Eosinophils/100 WBC (Bld) 3.0 % Normal 0.9-7.0 [facility] Comment on above: Performed By: #### C VDTBH #### [facility] [address] [place] [address] Dr. Ember Teague Erythrocyte distribution width (RBC) [Ratio] 14.2 % Normal 11.0-15.0 [facility] Comment on above: Performed By: #### C VDTBH #### [facility] [address] [place] [address] Dr. Ember Teague Hematocrit (Bld) [Volume fraction] 30.9 % Critically low 36.0-48.0 [facility] Comment on above: Performed By: #### C VDTBH #### [facility] [address] [place] [address] Dr. Ember Teague Hemoglobin (Bld) [Mass/Vol] 10.6 g/dL Critically low 12.0-16.0 [facility] Comment on above: Performed By: #### C VDTBH #### [facility] [address] [place] [address] Dr. Ember Teague IG # 0.04 10e3/ul Critically high 0.00-0.03 [facility] Comment on above: Performed By: #### C VDTBH #### [facility] [address] [place] [address] Dr. Ember Teague IG % 0.5 % Normal 0.0-0.5 [facility] Comment on above: Performed By: #### C VDTBH #### [facility] [address] [place] [address] Dr. Ember Teague LYMPH # 2.2 103/ul Normal 1.2-3.8 [facility] Comment on above: Performed By: #### C VDTBH #### [facility] [address] [place] [address] Dr. Ember Teague Lymphocytes/100 WBC (Bld) 27.0 % Normal 20.5-60.0 [facility] Comment on above: Performed By: #### C VDTBH #### [facility] [address] [place] [address] Dr. Ember Teague MANUAL DIFF REQ NO Normal [facility] Comment on above: Performed By: #### C VDTBH #### [facility] [address] [place] [address] Dr. Ember Teague MCH (RBC) [Entitic mass] 31.2 pg Normal 26.7-34.0 [facility] Comment on above: Performed By: #### C VDTBH #### [facility] [address] [place] [address] Dr. Ember Teague MCHC (RBC) [Mass/Vol] 34.3 g/dL Normal 29.9-35.2 [facility] Comment on above: Performed By: #### C VDTBH #### [facility] [address] [place] [address] Dr. Ember Teague MCV (RBC) [Entitic vol] 90.9 fL Normal 81.0-99.0 [facility] Comment on above: Performed By: #### C VDTBH #### [facility] [address] [address] [address] Ember Teague MONO # 0.7 103/ul Normal 0.3-0.8 [facility] Comment on above: Performed By: #### C VDTBH #### [facility] [address] [place] [address] Dr. Ember Teague Monocytes/100 WBC (Bld) 9.2 % Normal 1.7-12.0 [facility] Comment on above: Performed By: #### C VDTBH #### [facility] [address] [place] [address] Dr. Ember Teague NEUT # 4.8 103/ul Normal 1.4-6.5 [facility] Comment on above: Performed By: #### C VDTBH #### [facility] [address] [place] [address] Dr. Ember Teague Neutrophils/100 WBC (Bld) 59.7 % Normal 43.0-75.0 [facility] Comment on above: Performed By: #### C VDTBH #### [facility] [address] [place] [address] Dr. Ember Teague Platelet mean volume (Bld) [Entitic vol] 9.3 fL Critically low 9.5-13.5 [facility] Comment on above: Performed By: #### C VDTBH #### [facility] [address] [place] [address] Dr. Ember Teague PLT 227 103/ul Normal 150-450 [facility] Comment on above: Performed By: #### C VDTBH #### [facility] [address] [place] [address] Dr. Ember Teague RBC 3.40 106/ul Critically low 4.20-5.40 [facility] Comment on above: Performed By: #### C VDTBH #### [facility] [address] [place] [address] Dr. Ember Teague WBC 8.0 103/ul Normal 4.0-11.0 [facility] Comment on above: Performed By: #### C VDTBH #### [facility] [address] [address] [address] Ember Teague MRI LSPINE WO CONon [...] YANET HUERTA Date: 2022-06-25 08:45 Normal [facility] RENAL FUNCTION PANELon 06-25 Albumin [Mass/Vol] 3.9 g/dL Normal 3.4-5.0 [facility] Comment on above: Performed By: #### P THINT #### [facility] [address] [address] [address] Ember Teague Calcium [Mass/Vol] 9.5 mg/dL Normal 8.5-10.1 [facility] Comment on above: Performed By: #### P THINT #### [facility] [address] [address] [address] Ember Teague Chloride [Moles/Vol] 102 mmol/L Normal 98-107 [facility] Comment on above: Performed By: #### P THINT #### [facility] [address] [address] [address] Ember Teague CO2 [Moles/Vol] 23.8 mmol/L Normal 21.0-32.0 [facility] Comment on above: Performed By: #### P THINT #### [facility] [address] [address] [address] Ember Teague Creatinine [Mass/Vol] 1.75 mg/dL Critically high 0.55-1.02 [facility] Comment on above: Performed By: #### P THINT #### [facility] [address] [address] [address] Ember Teague EGFR-AF IRANIAN 34 mL/min/1.73m2 Critically low >=60 [facility] Comment on above: Performed By: #### P THINT #### [facility] [address] [address] [address] Ember Teague EGFR-NON AF IRANIAN 28 mL/min/1.73m2 Critically low >=60 [facility] Comment on above: Performed By: #### P THINT #### [facility] [address] [address] [address] Ember Teague Glucose [Mass/Vol] 199 mg/dL Critically high 74-106 [facility] Comment on above: Performed By: #### P THINT #### [facility] [address] [address] [address] Ember Teague Phosphate [Mass/Vol] 4.3 mg/dL Normal 2.6-4.7 [facility] Comment on above: Performed By: #### P THINT #### [facility] [address] [address] [address] Ember Teague Potassium [Moles/Vol] 4.9 mmol/L Normal 3.5-5.1 [facility] Comment on above: Performed By: #### P THINT #### [facility] [address] [address] [address] Ember Teague Sodium [Moles/Vol] 135 mmol/L Critically low 136-145 [facility] Comment on above: Performed By: #### P THINT #### [facility] [address] [place] [address] Dr. Ember Teague Urea nitrogen [Mass/Vol] 34.0 mg/dL Critically high 7.0-18.0 [facility] Comment on above: Performed By: #### P THINT #### [facility] [address] [place] [address] Dr. Ember Teague VITAMIN D 25 OHon 06-25-2022 VIT D 25-OH 40.6 ng/mL Normal [facility] Comment on above: Performed By: #### P THINT #### [facility] [address] [place] [address] Dr. Ember Teague VIT D RANGES SEE BELOW Normal [facility] Comment on above: Result Comment: <20 ng/mL Vit D deficient 20 - <30 ng/mL Vit D insufficient 30 - 100 ng/mL Vit D sufficient >100 ng/mL Potential Toxicity Performed By: #### P THINT #### [facility] [address] [place] [address] Dr. Ember Teague [facility]07 SARS-CoV-2 (COVID-19) RNA ALEXX+probe Ql (Unsp spec) Not detected Normal NOT DETECTED [facility] Comment on above: Result Comment: This test is not yet approved or cleared by the [place] FDA. When there are no FDA-approved or cleared tests available, and other criteria are met, FDA can make tests available under an emergency access mechanism called an Emergency Use Authorization (EUA). The EUA for this test is supported by the [employer] of Health and Human Service's (HHS's) declaration [...] SARS-CoV-2. Performed By: #### C [facility] #### [facility] [address] [address] [address] LSPINE WO CONon [...] YANET HUERTA Date: 2022-06-01 18:02 Normal [facility] XR LSPINE MIN 4 VIEWSon [...] by: YANET HUERTA Date: 2022-05-21 15:25 Normal [facility] PTH INTACTon 05-03-2022 PTH, Intact 60 pg/mL Normal 15-65 [facility] Comment on above: Performed By: #### C VDTBH #### [facility] [address] [address] [address] Ember Teague VIT D 25-OH LABCORPon 2021 Vitamin D, 25-Hydroxy 26.1 ng/mL Critically low 30.0-100.0 [facility] Comment on above: Result Comment: Sara min D deficiency has been defined by the [place] of Medicine and an Endocrine Society practice guideline as a level of serum 25-OH vitamin D less than 20 ng/mL (1,2). The Endocrine Society went on to further define vitamin D insufficiency as a level between 21 and 29 ng/mL (2). 1. IOM ([place] of [employer]). 2010. Dietary reference intakes for calcium and D. [place]: The National Academies Press. 2. Sherice MF, Wendy NC, Huan ZHONG, et al. Evaluation, treatment, and prevention of vitamin D deficiency: an Endocrine Society clinical practice guideline. JCEM. 2010; 96(7):1911-30. Performed By: #### R ENAL #### [facility] [address] [address] [address] Ember Teague FERRITINon 05-02-2022 Ferritin [Mass/Vol] 590.0 ng/mL Critically high 8.0-252.0 [facility] Comment on above: Performed By: #### R ENAL #### [facility] [address] [place] [address] Dr. Ember Teague HEMOGRAM AND PLATELon 2021 Hematocrit (Bld) [Volume fraction] 28.4 % Critically low 36.0-48.0 [facility] Comment on above: Performed By: #### C VDTBH #### [facility] [address] [place] [address] Dr. Ember Teague Hemoglobin (Bld) [Mass/Vol] 9.6 g/dL Critically low 12.0-16.0 [facility] Comment on above: Performed By: #### C VDTBH #### [facility] [address] [place] [address] Dr. Ember Teague MCH (RBC) [Entitic mass] 31.0 pg Normal 26.7-34.0 [facility] Comment on above: Performed By: #### C VDTBH #### [facility] [address] [place] [address] Dr. Ember Teague MCHC (RBC) [Mass/Vol] 33.8 g/dL Normal 29.9-35.2 [facility] Comment on above: Performed By: #### C VDTBH #### [facility] [address] [place] [address] Dr. Ember Teague MCV (RBC) [Entitic vol] 91.6 fL Normal 81.0-99.0 [facility] Comment on above: Performed By: #### C VDTBH #### [facility] [address] [place] [address] Dr. Ember Teague PLT 189 103/ul Normal 150-450 [facility] Comment on above: Performed By: #### C VDTBH #### [facility] [address] [place] [address] Dr. Embre Teague RBC 3.10 106/ul Critically low 4.20-5.40 [facility] Comment on above: Performed By: #### C VDTBH #### [facility] [address] [place] [address] Dr. Ember Teague WBC 6.2 103/ul Normal 4.0-11.0 [facility] Comment on above: Performed By: #### C VDTBH #### [facility] [address] [place] [address] Dr. Ember Teague IRON AND TIBCon 05-02-2022 % SATURATION 34.3 % Normal [facility] Comment on above: Performed By: #### R ENAL #### [facility] [address] [place] [address] Dr. Ember Teague Iron [Mass/Vol] 69.0 ug/dL Normal 50.0-170.0 [facility] Comment on above: Performed By: #### R ENAL #### [facility] [address] [place] [address] Dr. Ember Teague TIBC DIRECT 201.0 ug/dL Critically low 250.0-450.0 [facility] Comment on above: Performed By: #### R ENAL #### [facility] [address] [place] [address] Dr. Ember Teague MAGNESIUMon 05-02-2022 Magnesium [Mass/Vol] 1.7 mg/dL Critically low 1.8-2.4 [facility] Comment on above: Performed By: #### C VDTBH #### [facility] [address] [place] [address] Dr. Ember Teague RENAL FUNCTION PANELon 05-02 Albumin [Mass/Vol] 3.6 g/dL Normal 3.4-5.0 [facility] Comment on above: Performed By: #### C VDTBH #### [facility] [address] [place] [address] Dr. Ember Teague Calcium [Mass/Vol] 9.2 mg/dL Normal 8.5-10.1 [facility] Comment on above: Performed By: #### C VDTBH #### [facility] [address] [place] [address] Dr. Ember Teague Chloride [Moles/Vol] 107 mmol/L Normal 98-107 [facility] Comment on above: Performed By: #### C VDTBH #### [facility] [address] [address] [address] Ember Teague CO2 [Moles/Vol] 21.2 mmol/L Normal 21.0-32.0 [facility] Comment on above: Performed By: #### C VDTBH #### [facility] [address] [address] [address] Ember Teague Creatinine [Mass/Vol] 1.75 mg/dL Critically high 0.55-1.02 [facility] Comment on above: Performed By: #### C VDTBH #### [facility] [address] [address] [address] Ember Teague EGFR-AF IRANIAN 34 mL/min/1.73m2 Critically low >=60 [facility] Comment on above: Performed By: #### C VDTBH #### [facility] [address] [place] [address] Dr. Ember Teague EGFR-NON AF IRANIAN 28 mL/min/1.73m2 Critically low >=60 [facility] Comment on above: Performed By: #### C VDTBH #### [facility] [address] [address] [address] Ember Teague Glucose [Mass/Vol] 193 mg/dL Critically high 74-106 [facility] Comment on above: Performed By: #### C VDTBH #### [facility] [address] [place] [address] Dr. Ember Teague Phosphate [Mass/Vol] 4.2 mg/dL Normal 2.6-4.7 [facility] Comment on above: Performed By: #### C VDTBH #### [facility] [address] [address] [address] mEber Teague Potassium [Moles/Vol] 5.1 mmol/L Normal 3.5-5.1 [facility] Comment on above: Performed By: #### C VDTBH #### [facility] [address] [address] [address] Ember Teague Sodium [Moles/Vol] 139 mmol/L Normal 136-145 [facility] Comment on above: Performed By: #### C VDTBH #### [facility] [address] [place] [address] Dr. Ember Teague Urea nitrogen [Mass/Vol] 34.0 mg/dL Critically high 7.0-18.0 [facility] Comment on above: Performed By: #### C VDTBH #### [facility] [address] [place] [address] Dr. Ember Teague UA RANDOM W/MICROSCOPICon BACTERIA SMALL Abnormal NONE SEEN [facility] Comment on above: Performed By: #### C VDTBH #### [facility] [address] [place] [address] Dr. Ember Teague Bilirubin Ql (U) Negative Normal NEGATIVE [facility] Comment on above: Performed By: #### C VDTBH #### [facility] [address] [place] [address] Dr. Ember Teague CAST NONE SEEN Normal NONE SEEN [facility] Comment on above: Performed By: #### C VDTBH #### [facility] [address] [place] [address] Dr. Ember Teague Clarity (U) CLEAR Normal CLEAR [facility] Comment on above: Performed By: #### C VDTBH #### [facility] [address] [place] [address] Dr. Ember Teague Color (U) LT. YELLOW Normal YELLOW [facility] Comment on above: Performed By: #### C VDTBH #### [facility] [address] [place] [address] Dr. Ember Teague Crystals LM Nom (Urine sed) NONE SEEN Normal NONE SEEN [facility] Comment on above: Performed By: #### C VDTBH #### [facility] [address] [place] [address] Dr. Ember Teague Epithelial cells LM Ql (Urine sed) MODERATE Abnormal NONE SEEN /RARE [facility] Comment on above: Performed By: #### C VDTBH #### [facility] [address] [place] [address] Dr. Ember Teague Glucose Ql (U) Negative Normal NEGATIVE [facility] Comment on above: Performed By: #### C VDTBH #### [facility] [address] [place] [address] Dr. Ember Teague Hemoglobin Ql (U) Negative Normal NEGATIVE [facility] Comment on above: Performed By: #### C VDTBH #### [facility] [address] [place] [address] Dr. Embre Teague Ketones Ql (U) Negative Normal NEGATIVE [facility] Comment on above: Performed By: #### C VDTBH #### [facility] [address] [place] [address] Dr. Ember Teague LEUKOCYTES TRACE Abnormal NEGATIVE [facility] Comment on above: Performed By: #### C VDTBH #### [facility] [address] [place] [address] Dr. Ember Teague MUCOUS NONE SEEN Normal NONE SEEN [facility] Comment on above: Performed By: #### C VDTBH #### [facility] [address] [place] [address] Dr. Ember Teague Nitrite Ql (U) Negative Normal NEGATIVE [facility] Comment on above: Performed By: #### C VDTBH #### [facility] [address] [place] [address] Dr. Ember Teague pH (U) 5.0 [pH] Normal 5-9 [facility] Comment on above: Performed By: #### C VDTBH #### [facility] [address] [place] [address] Dr. Ember Teague RBC NONE SEEN Abnormal 0-2 [facility] Comment on above: Performed By: #### C VDTBH #### [facility] [address] [place] [address] Dr. Ember Teague SPEC GRAVITY 1.015 Normal 1.005-<=1.025 [facility] Comment on above: Performed By: #### C VDTBH #### [facility] [address] [place] [address] Dr. Ember Teague UA PROTEIN TRACE Normal NEGATIVE/ TRACE [facility] Comment on above: Performed By: #### C VDTBH #### [facility] [address] [place] [address] Dr. Ember Teague Urobilinogen Qn (U) 0.2 {Esau'U}/dL Normal 0.2 - 1. 0 [facility] Comment on above: Performed By: #### C VDTBH #### [facility] [address] [place] [address] Dr. Ember Teague WBC 0-2 Abnormal NONE SEEN [facility] Comment on above: Performed By: #### C VDTBH #### [facility] [address] [place] [address] Dr. Ember Teague URIC ACID SERUMon 05-02-2022 Urate [Mass/Vol] 4.4 mg/dL Normal 2.6-6.0 [facility] Comment on above: Performed By: #### C #### [facility] [address] [place] [address] Dr. Ember Teague URINE T PROTEIN CREAT RATIOo n 05-02-2022 Protein (U) [Mass/Vol] 33.7 mg/dL Critically high <=12.0 [facility] Comment on above: Performed By: #### C VDTBH #### [facility] [address] [place] [address] Dr. Ember Teague UR PROT CREAT RAT 0.69 Normal [facility] Comment on above: Performed By: #### C VDTBH #### [facility] [address] [place] [address] Dr. Ember Teague URINE CREAT 48.93 mg/dL Normal 20.00-300.00 [facility] Comment on above: Performed By: #### C VDTBH #### [facility] [address] [place] [address] Dr. Ember Teague Vital Signs Date Time Vital Sign Value Performing Clinician Facility 11-16-2024 09:49-0500 Body height 168.9 cm Lorraine Mayer MD Work Phone: [facility] 11-16-2024 09:49-0500 Body mass index (BMI) [Ratio] 30.53 kg/m2 Lorraine Mayer MD Work Phone: [facility] 11-16-2024 09:49-0500 Body weight 87.09 kg Lorraine Mayer MD Work Phone: [facility] 11-16-2024 09:49-0500 Diastolic blood pressure 80 mm[Hg] Lorraine Mayer MD Work Phone: [facility] 11-16-2024 09:49-0500 Heart rate 62 /min Lorraine Mayer MD Work Phone: [facility] 11-16-2024 09:49-0500 Respiratory rate 16 /min Lorraine Mayer MD Work Phone: [facility] 11-16-2024 09:49-0500 SaO2% (BldA) [Mass fraction] 97 % Lorraine Mayer MD Work Phone: [facility] 11-16-2024 09:49-0500 Systolic blood pressure 130 mm[Hg] Lorraine Mayer MD Work Phone: [facility] 01-17-2024 12:56-0400 Body height 168.9 cm Thuan Lucas MD Work Phone: [facility] 01-17-2024 12:56-0400 Body mass index (BMI) [Ratio] 30.05 kg/m2 Thuan Lucas MD Work Phone: [facility] 01-17-2024 12:56-0400 Body weight 85.73 kg Thuan Lucas MD Work Phone: [facility] 01-17-2024 12:56-0400 Diastolic blood pressure 70 mm[Hg] Thuan Lucas MD Work Phone: [facility] 01-17-2024 12:56-0400 Heart rate 60 /min Thuan Lucas MD Work Phone: [facility] 01-17-2024 12:56-0400 SaO2% (BldA) [Mass fraction] 98 % Thuan Lucas MD Work Phone: [employer] 01-17-2024 12:56-0400 Systolic blood pressure 180 mm[Hg] Thuan Lucas MD Work Phone: [employer] 11-18-2023 10:00-0500 Body height 168.91 cm Ron Doreen Other [facility] Other 11-18-2023 10:00-0500 Body mass index (BMI) [Ratio] 29.85 kg/m2 Ron Doreen Other [facility] Other 11-18-2023 10:00-0500 Body temperature 97.3 [degF] Ron Doreen Other [facility] Other 11-18-2023 10:00-0500 Body weight 85.19 kg Ron Doreen Other [facility] Other 11-18-2023 10:00-0500 Diastolic blood pressure 79 mm[Hg] Ron Doreen Other [facility] Other 11-18-2023 10:00-0500 Respiratory rate 18 /min Ron Doreen Other [facility] Other 11-18-2023 10:00-0500 SaO2% (BldA) [Mass fraction] 98 % Ron Doreen Other [facility] Other 11-18-2023 10:00-0500 Systolic blood pressure 149 mm[Hg] Ron Doreen Other [facility] Other 11-04-2023 11:00-0500 Body height 168.91 cm Ron Doreen Other [facility] Other 11-04-2023 11:00-0500 Body mass index (BMI) [Ratio] 30.17 kg/m2 Ron Doreen Other [facility] Other 11-04-2023 11:00-0500 Body temperature 97.6 [degF] Ron Doreen Other [facility] Other 11-04-2023 11:00-0500 Body weight 86.09 kg Ron Doreen Other [facility] Other 11-04-2023 11:00-0500 Diastolic blood pressure 76 mm[Hg] Ron Doreen Other [facility] Other 11-04-2023 11:00-0500 Respiratory rate 18 /min Ron Doreen Other [facility] Other 11-04-2023 11:00-0500 SaO2% (BldA) [Mass fraction] 98 % Ron Doreen Other [facility] Other 11-04-2023 11:00-0500 Systolic blood pressure 153 mm[Hg] Ron Doreen Other [facility] Other 10-15-2023 13:00-0500 Body height 168.91 cm Ron Doreen Other [facility] Other 10-15-2023 13:00-0500 Body mass index (BMI) [Ratio] 29.82 kg/m2 Ron Doreen Other [facility] Other 10-15-2023 13:00-0500 Body temperature 97.5 [degF] Ron Doreen Other [facility] Other 10-15-2023 13:00-0500 Body weight 85.1 kg Ron Doreen Other [facility] Other 10-15-2023 13:00-0500 Diastolic blood pressure 68 mm[Hg] Ron Doreen Other [facility] Other 10-15-2023 13:00-0500 Respiratory rate 18 /min Ron Doreen Other [facility] Other 10-15-2023 13:00-0500 SaO2% (BldA) [Mass fraction] 98 % Ron Doreen Other [facility] Other 10-15-2023 13:00-0500 Systolic blood pressure 113 mm[Hg] Ron Doreen Other [facility] Other 08-27-2023 09:40-0500 Body height 168.91 cm Mary Anne [employer]oma Water Other [facility] Other 08-27-2023 09:40-0500 Body mass index (BMI) [Ratio] 30.2 kg/m2 Mary Anne [email or web address] Other [facility] Other 08-27-2023 09:40-0500 Body temperature 96.7 [degF] Mary Anne [employer] Other [facility] Other 08-27-2023 09:40-0500 Body weight 86.18 kg Mary Anne Scan Other [facility] Other 08-27-2023 09:40-0500 Diastolic blood pressure 72 mm[Hg] Mary Anne Mensahs Other [facility] Other 08-27-2023 09:40-0500 Respiratory rate 18 /min Mary Anne Mensahs Other [facility] Other 08-27-2023 09:40-0500 SaO2% (BldA) [Mass fraction] 98 % Mary Anne Mensahs Other [facility] Other 08-27-2023 09:40-0500 Systolic blood pressure 153 mm[Hg] Mary Anne Mensahs Other [facility] Other 08-15-2023 10:20-0500 Body height 168.91 cm Ron Doreen Other [facility] Other 08-15-2023 10:20-0500 Body mass index (BMI) [Ratio] 30.2 kg/m2 Ron Doreen Other [facility] Other 08-15-2023 10:20-0500 Body temperature 97.1 [degF] Ron Doreen Other [facility] Other 08-15-2023 10:20-0500 Body weight 86.18 kg Ron Doreen Other [facility] Other 08-15-2023 10:20-0500 Diastolic blood pressure 79 mm[Hg] Ron Doreen Other [facility] Other 08-15-2023 10:20-0500 Respiratory rate 18 /min Ron Doreen Other [facility] Other 08-15-2023 10:20-0500 SaO2% (BldA) [Mass fraction] 98 % Ron Doreen Other [facility] Other 08-15-2023 10:20-0500 Systolic blood pressure 164 mm[Hg] Ron Doreen Other [facility] Other 08-13-2023 15:40-0500 Body height 168.91 cm Ron Doreen Other [facility] Other 08-13-2023 15:40-0500 Body mass index (BMI) [Ratio] 30.24 kg/m2 Ron Doreen Other [facility] Other 08-13-2023 15:40-0500 Body temperature 97.2 [degF] Ron Doreen Other [facility] Other 08-13-2023 15:40-0500 Body weight 86.27 kg Ron Doreen Other [facility] Other 08-13-2023 15:40-0500 Diastolic blood pressure 79 mm[Hg] Ron Doreen Other [facility] Other 08-13-2023 15:40-0500 Respiratory rate 18 /min Ron Doreen Other [facility] Other 08-13-2023 15:40-0500 SaO2% (BldA) [Mass fraction] 98 % Ron Doreen Other [facility] Other 08-13-2023 15:40-0500 Systolic blood pressure 186 mm[Hg] Ron Doreen Other [facility] Other 08-01-2023 13:00-0400 Body height 168.91 cm Ron Doreen Other [facility] Other 08-01-2023 13:00-0400 Body mass index (BMI) [Ratio] 30.55 kg/m2 Ron Doreen Other [facility] Other 08-01-2023 13:00-0400 Body temperature 97.8 [degF] Ron Doreen Other [facility] Other 08-01-2023 13:00-0400 Body weight 87.18 kg Ron Doreen Other [facility] Other 08-01-2023 13:00-0400 Diastolic blood pressure 72 mm[Hg] Ron Doreen Other [facility] Other 08-01-2023 13:00-0400 Respiratory rate 18 /min Ron Doreen Other [facility] Other 08-01-2023 13:00-0400 SaO2% (BldA) [Mass fraction] 98 % Ron Doreen Other [facility] Other 08-01-2023 13:00-0400 Systolic blood pressure 160 mm[Hg] Ron Doreen Other [facility] Other 06-24-2023 11:40-0400 Body height 168.91 cm Ron Doreen Other [facility] Other 06-24-2023 11:40-0400 Body mass index (BMI) [Ratio] 29.89 kg/m2 Ron Doreen Other [facility] Other 06-24-2023 11:40-0400 Body temperature 97.3 [degF] Ron Doreen Other [facility] Other 06-24-2023 11:40-0400 Body weight 85.28 kg Ron Doreen Other [facility] Other 06-24-2023 11:40-0400 Diastolic blood pressure 75 mm[Hg] Ron Doreen Other [facility] Other 06-24-2023 11:40-0400 Respiratory rate 18 /min Ron Doreen Other [facility] Other 06-24-2023 11:40-0400 SaO2% (BldA) [Mass fraction] 99 % Ron Doreen Other [facility] Other 06-24-2023 11:40-0400 Systolic blood pressure 129 mm[Hg] Ron Doreen Other [facility] Other 06-06-2023 15:20-0400 Body height 168.91 cm Ron Doreen Other [facility] Other 06-06-2023 15:20-0400 Body mass index (BMI) [Ratio] 29.92 kg/m2 Ron Doreen Other [facility] Other 06-06-2023 15:20-0400 Body temperature 96.5 [degF] Ron Doreen Other [facility] Other 06-06-2023 15:20-0400 Body weight 85.37 kg Ron Doreen Other [facility] Other 06-06-2023 15:20-0400 Diastolic blood pressure 49 mm[Hg] Ron Doreen Other [facility] Other 06-06-2023 15:20-0400 Respiratory rate 18 /min Ron Doreen Other [facility] Other 06-06-2023 15:20-0400 SaO2% (BldA) [Mass fraction] 99 % Ron Doreen Other [facility] Other 06-06-2023 15:20-0400 Systolic blood pressure 128 mm[Hg] Ron Doreen Other [facility] Other 04-30-2023 11:40-0400 Body height 168.91 cm Ron Doreen Other [facility] Other 04-30-2023 11:40-0400 Body mass index (BMI) [Ratio] 30.52 kg/m2 Ron Doreen Other [facility] Other 04-30-2023 11:40-0400 Body temperature 96.9 [degF] Ron Doreen Other [facility] Other 04-30-2023 11:40-0400 Body weight 87.09 kg Ron Doreen Other [facility] Other 04-30-2023 11:40-0400 Diastolic blood pressure 80 mm[Hg] Ron Doreen Other [facility] Other 04-30-2023 11:40-0400 Respiratory rate 18 /min Ron Doreen Other [facility] Other 04-30-2023 11:40-0400 SaO2% (BldA) [Mass fraction] 98 % Ron Doreen Other [facility] Other 04-30-2023 11:40-0400 Systolic blood pressure 150 mm[Hg] Ron Doreen Other [facility] Other 04-06-2023 09:00-0400 Body height 168.91 cm Ron Doreen Other [facility] Other 04-06-2023 09:00-0400 Body mass index (BMI) [Ratio] 30.36 kg/m2 Ron Doreen Other [facility] Other 04-06-2023 09:00-0400 Body weight 86.64 kg Ron Doreen Other [facility] Other 04-06-2023 09:00-0400 Diastolic blood pressure 54 mm[Hg] Ron Doreen Other [facility] Other 04-06-2023 09:00-0400 Respiratory rate 18 /min Ron Doreen Other [facility] Other 04-06-2023 09:00-0400 SaO2% (BldA) [Mass fraction] 98 % Ron Doreen Other [facility] Other 04-06-2023 09:00-0400 Systolic blood pressure 144 mm[Hg] Ron Doreen Other [facility] Other 04-02-2023 14:40-0400 Body height 168.91 cm Ron Doreen Other [facility] Other 04-02-2023 14:40-0400 Body mass index (BMI) [Ratio] 30.55 kg/m2 Ron Doreen Other [facility] Other 04-02-2023 14:40-0400 Body temperature 97 [degF] Ron Doreen Other [facility] Other 04-02-2023 14:40-0400 Body weight 87.18 kg Ron Doreen Other [facility] Other 04-02-2023 14:40-0400 Diastolic blood pressure 76 mm[Hg] Ron Doreen Other [facility] Other 04-02-2023 14:40-0400 Respiratory rate 18 /min Ron Doreen Other [facility] Other 04-02-2023 14:40-0400 SaO2% (BldA) [Mass fraction] 98 % Ron Doreen Other [facility] Other 04-02-2023 14:40-0400 Systolic blood pressure 183 mm[Hg] Ron Doreen Other [facility] Other 03-07-2023 09:20-0400 Body height 168.91 cm Ron Doreen Other [facility] Other 03-07-2023 09:20-0400 Body mass index (BMI) [Ratio] 30.52 kg/m2 Ron Doreen Other [facility] Other 03-07-2023 09:20-0400 Body temperature 97.1 [degF] Ron Doreen Other [facility] Other 03-07-2023 09:20-0400 Body weight 87.09 kg Ron Doreen Other [facility] Other 03-07-2023 09:20-0400 Diastolic blood pressure 72 mm[Hg] Ron Doreen Other [facility] Other 03-07-2023 09:20-0400 Respiratory rate 18 /min Ron Doreen Other [facility] Other 03-07-2023 09:20-0400 SaO2% (BldA) [Mass fraction] 97 % Ron Doreen Other [facility] Other 03-07-2023 09:20-0400 Systolic blood pressure 130 mm[Hg] Ron Doreen Other [facility] Other 12-20-2022 13:20-0400 Body height 168.91 cm Ron Doreen Other [facility] Other 12-20-2022 13:20-0400 Body mass index (BMI) [Ratio] 30.68 kg/m2 Ron Doreen Other [facility] Other 12-20-2022 13:20-0400 Body temperature 97.1 [degF] Ron Doreen Other [facility] Other 12-20-2022 13:20-0400 Body weight 87.54 kg Ron Doreen Other [facility] Other 12-20-2022 13:20-0400 Diastolic blood pressure 72 mm[Hg] Ron Doreen Other [facility] Other 12-20-2022 13:20-0400 Respiratory rate 18 /min Ron Doreen Other [facility] Other 12-20-2022 13:20-0400 SaO2% (BldA) [Mass fraction] 99 % Ron Doreen Other [facility] Other 12-20-2022 13:20-0400 Systolic blood pressure 139 mm[Hg] Ron Doreen Other [facility] Other 11-05-2022 14:00-0500 Body height 168.91 cm Ron Doreen Other [facility] Other 11-05-2022 14:00-0500 Body mass index (BMI) [Ratio] 30.59 kg/m2 Ron Doreen Other [facility] Other 11-05-2022 14:00-0500 Body temperature 96.8 [degF] Ron Doreen Other [facility] Other 11-05-2022 14:00-0500 Body weight 87.27 kg Ron Doreen Other [facility] Other 11-05-2022 14:00-0500 Diastolic blood pressure 72 mm[Hg] Ron Doreen Other [facility] Other 11-05-2022 14:00-0500 Respiratory rate 18 /min Ron Doreen Other [facility] Other 11-05-2022 14:00-0500 SaO2% (BldA) [Mass fraction] 98 % Ron Doreen Other [facility] Other 11-05-2022 14:00-0500 Systolic blood pressure 157 mm[Hg] Ron Doreen Other [facility] Other 09-27-2022 16:00-0500 Body height 168.91 cm Varinderreinaldo Iona Other [facility] Other 09-27-2022 16:00-0500 Body mass index (BMI) [Ratio] 30.55 kg/m2 Jana Monson Other [facility] Other 09-27-2022 16:00-0500 Body temperature 96.8 [degF] Jana Monson Other [facility] Other 09-27-2022 16:00-0500 Body weight 87.18 kg Jana Monson Other [facility] Other 09-27-2022 16:00-0500 Diastolic blood pressure 73 mm[Hg] Jana Monson Other [facility] Other 09-27-2022 16:00-0500 Respiratory rate 18 /min Jana Monson Other [facility] Other 09-27-2022 16:00-0500 SaO2% (BldA) [Mass fraction] 98 % Jana Monson Other [facility] Other 09-27-2022 16:00-0500 Systolic blood pressure 159 mm[Hg] Jana Monson Other [facility] Other 08-22-2022 12:00-0500 Body height 168.91 cm Ron Doreen Other [facility] Other 08-22-2022 12:00-0500 Body mass index (BMI) [Ratio] 30.65 kg/m2 Ron Doreen Other [facility] Other 08-22-2022 12:00-0500 Body temperature 96.9 [degF] Ron Doreen Other [facility] Other 08-22-2022 12:00-0500 Body weight 87.45 kg Ron Doreen Other [facility] Other 08-22-2022 12:00-0500 Diastolic blood pressure 75 mm[Hg] Ron Doreen Other [facility] Other 08-22-2022 12:00-0500 Respiratory rate 18 /min Ron Doreen Other [facility] Other 08-22-2022 12:00-0500 SaO2% (BldA) [Mass fraction] 96 % Ron Doreen Other [facility] Other 08-22-2022 12:00-0500 Systolic blood pressure 121 mm[Hg] Ron Doreen Other [facility] Other 05-08-2022 10:20-0400 Body height 168.91 cm Ron Doreen Other [facility] Other 05-08-2022 10:20-0400 Body mass index (BMI) [Ratio] 31.54 kg/m2 Ron Doreen Other [facility] Other 05-08-2022 10:20-0400 Body temperature 97.6 [degF] Ron Doreen Other [facility] Other 05-08-2022 10:20-0400 Body weight 89.99 kg Ron Doreen Other [facility] Other 05-08-2022 10:20-0400 Diastolic blood pressure 68 mm[Hg] Ron Doreen Other [facility] Other 05-08-2022 10:20-0400 Respiratory rate 18 /min Ron Doreen Other [facility] Other 05-08-2022 10:20-0400 SaO2% (BldA) [Mass fraction] 98 % Ron Doreen Other [facility] Other 05-08-2022 10:20-0400 Systolic blood pressure 131 mm[Hg] Ron Doreen Other [facility] Other 01-18-2022 10:20-0400 Body height 168.91 cm Ron Doreen Other [facility] Other 04-14-2022 10:20-0400 Body mass index (BMI) [Ratio] 31 kg/m2 Ron Doreen Other [facility] Other 01-18-2022 10:20-0400 Body temperature 96.4 [degF] Ron Doreen Other [facility] Other 01-18-2022 10:20-0400 Body weight 88.45 kg Ron Doreen Other [facility] Other 01-18-2022 10:20-0400 Diastolic blood pressure 74 mm[Hg] Ron Doreen Other [facility] Other 01-18-2022 10:20-0400 Respiratory rate 18 /min Ron Doreen Other [facility] Other 01-18-2022 10:20-0400 SaO2% (BldA) [Mass fraction] 97 % Ron Doreen Other [facility] Other 01-18-2022 10:20-0400 Systolic blood pressure 170 mm[Hg] Ron Doreen Other [facility] Other Encounters Encounter Date Encounter Type Care Provider Facility Start: 12-21-2024 End: 12-21-2024 Telephone encounter Cary Goldman CMA [facility] Start: 12-12-2024 End: 2024 Refill Cristina Salamanca [employer] Work Phone: [facility] Comment on above: Med Refill Start: 11-27-2024 End: 11-27-2024 ambulatory [facility] Start: 11-16-2024 End: 11-16-2024 Parmjit flowsviry Mayer MD Work Phone: [facility] Start: 11-16-2024 End: 11-16-2024 Bamboo flowsheet Lorraine Mayer MD Work Phone: [facility] Start: 11-16-2024 End: 11-16-2024 Office outpatient visit 25 minutes Lorraine Mayer MD Work Phone: [facility] Comment on above: Type 2 diabetes diony itus with hyperglycemia, with long-term 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 ([facility]/HCC) (Primary Dx); Vitamin D deficiency; Microalbuminuria; Hyperlipemia, mixed (CMS/HCC); Primary hypertension (CMS/HCC); Insulin long-term use (CMS/HCC); 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CMS/HCC); Encounter for dietary consultation; Chronic renal disease, stage IV (CMS/HCC) Start: 11-16-2024 End: 11-16-2024 ambulatory LORRAINE MAYER Not Available Start: 09-28-2024 End: 09-28-2024 Bamboo flowsheet Ga Lai DPM Work Phone: [facility] Start: 09-28-2024 End: 09-28-2024 Bamboo flowsheet Ga Lai DPM Work Phone: [facility] Start: 09-28-2024 End: 09-28-2024 Patient encounter procedure Ga Lai DPM Work Phone: [facility] Comment on above: Onychomycosis (Prima ry Dx); Pain in both feet; Corns and callosities; Type 2 diabetes mellitus without complication, with long-term 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 ([facility]/HCC) Start: 09-28-2024 End: 09-28-2024 ambulatory GA LAI Not Available Start: 09-05-2024 End: 09-11-2024 Refill Marie Garcia [employer] Work Phone: [facility] Comment on above: Med Refill Start: 07-13-2024 End: 07-13-2024 Bamboo flowsheet Lorraine Mayer MD Work Phone: [facility] Start: 07-13-2024 End: 07-13-2024 Bamboo flowsheet Lorraine Mayer MD Work Phone: [facility] Start: 07-13-2024 End: 07-13-2024 Office outpatient visit 25 minutes Lorraine Mayer MD Work Phone: [facility] Comment on above: Type 2 diabetes diony itus with hyperglycemia, with long-term 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 ([facility]/HCC) (Primary Dx); Vitamin D deficiency; Microalbuminuria; Hyperlipemia, mixed (CMS/HCC); Primary hypertension (CMS/HCC); Insulin long-term use (CMS/HCC); 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CMS/HCC); Encounter for dietary consultation; Chronic renal disease, stage IV ([facility]/HCC) Start: 07-13-2024 End: 07-13-2024 ambulatory LORRAINE MAYER Not Available Start: 06-25-2024 End: 06-25-2024 Bamboo flowsheet Ga Lai DPM Work Phone: [facility] Start: 06-25-2024 End: 06-25-2024 Bamboo flowsheet Ga Lai DPM Work Phone: [facility] Start: 06-25-2024 End: 06-25-2024 Patient encounter procedure Ga Lai DPM Work Phone: [facility] Comment on above: Onychomycosis (Prima ry Dx); Pain in both feet; Corns and callosities; Type 2 diabetes mellitus without complication, with long-term 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 ([facility]/HCC) Start: 06-25-2024 End: 06-25-2024 ambulatory GA LAI Not Available Start: 06-04-2024 End: 06-04-2024 Bamboo flowsheet Greg Longoria MD Work Phone: [facility] Start: 06-04-2024 End: 06-04-2024 Bamboo flowsheet Greg Longoria MD Work Phone: [facility] Start: 06-04-2024 End: 06-04-2024 Office outpatient visit 15 minutes Greg Longoria MD Work Phone: [facility] Comment on above: Granuloma annulare ( Primary Dx) Start: 06-04-2024 End: 06-04-2024 ambulatory GREG Huynh MELANIEI Not Available Start: 05-25-2024 End: 05-25-2024 Patient encounter procedure Greg Longoria MD Work Phone: [facility] Comment on above: Rash and other nonsp ecific skin eruption (Primary Dx) Start: 05-25-2024 End: 05-25-2024 ambulatory GREG NAVARROI Not Available Start: 05-11-2024 End: 05-11-2024 ambulatory [facility] Start: 04-21-2024 End: 04-21-2024 ambulatory GREG COLLADOITTI Not Available Start: 04-16-2024 End: 04-16-2024 ambulatory GA H CHERIE Not Available Start: 03-18-2024 End: 03-23-2024 Refill Marie GALLOWAY Work Phone: [facility] Comment on above: Med Refill Start: 03-16-2024 End: 03-16-2024 ambulatory GREG Huynh PETITTI Not Available Start: 02-10-2024 End: 02-10-2024 ambulatory [facility] Start: 01-17-2024 End: 01-17-2024 ambulatory THUAN LUCAS [facility] Start: 01-17-2024 End: 01-17-2024 Office outpatient visit 15 minutes Sarthak Rueda MD Work Phone: [facility] Comment on above: Paroxysmal atrial fi brillation (CMS-HCC) (Primary Dx); Stage 4 chronic kidney disease (CMS-HCC); 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); Other forms of angina pectoris (CMS-HCC); Essential hypertension; Atherosclerosis of [place] coronary artery of [place] heart without angina pectoris; H/O four vessel coronary artery bypass graft; Hypertensive urgency; Shortness of breath; Localized edema Start: 01-16-2024 End: 01-16-2024 Telephone encounter Cary Goldman CMA [facility] Start: 01-16-2024 End: 01-16-2024 ambulatory GA Moreno CHERIE Not Available Start: 12-21-2023 Refill Luis dominique PA-C [facility] Comment on above: Med Refill Start: 11-28-2023 End: 11-28-2023 ambulatory GREG NAVARROI Not Available Start: 11-18-2023 End: 11-18-2023 ambulatory Ron Doreen Other [facility] Other Start: 11-18-2023 Office outpatient vi sit 15 minutes Ron Doreen [facility] Start: 11-04-2023 (INJECTION) INJECTION Ron Doreen [facility] Start: 11-04-2023 End: 11-04-2023 ambulatory Ron Doreen Other [facility] Other Start: 10-15-2023 End: 10-15-2023 ambulatory Ron Doreen Other [facility] Other Start: 10-15-2023 Office outpatient vi sit 15 minutes Ron Doreen [facility] Start: 10-08-2023 End: 10-08-2023 ambulatory Aziz Bakhous Other [facility] Other Start: 10-08-2023 Telephone encounter Aziz Bakhous [facility] Start: 09-15-2023 End: 09-15-2023 ambulatory Ron Doreen Other [facility] Other Start: 09-15-2023 Telephone encounter Ron Doreen [facility] Start: 09-09-2023 End: 09-09-2023 ambulatory Ron Doreen Other [facility] Other Start: 09-09-2023 Telephone encounter Ron Doreen [facility] Start: 08-27-2023 (INJECTION) INJECTION Aziz Bakhous [facility] Start: 08-27-2023 End: 08-27-2023 ambulatory Aziz Bakhous Other [facility] Other Start: 08-15-2023 (INJECTION) INJECTION Ron Doreen [facility] Start: 08-15-2023 End: 08-15-2023 ambulatory Ron Doreen Other [facility] Other Start: 08-13-2023 (INJECTION) INJECTION Ron Doreen [facility] Start: 08-13-2023 End: 08-13-2023 ambulatory Ron Doreen Other [facility] Other Start: 08-01-2023 End: 08-01-2023 ambulatory Ron Doreen Other [facility] Other Start: 08-01-2023 Office outpatient vi sit 15 minutes Ron Doreen [facility] Start: 06-24-2023 End: 06-24-2023 ambulatory Ron Doreen Other [facility] Other Start: 06-24-2023 Office outpatient vi sit 10 minutes Ron Doreen [facility] Start: 06-06-2023 End: 06-06-2023 ambulatory Ron Doreen Other [facility] Other Start: 06-06-2023 Office outpatient vi sit 15 minutes Ron Doreen [facility] Eliel Start: 04-30-2023 End: 04-30-2023 ambulatory Ron Doreen Other [facility] Other Start: 04-30-2023 Office outpatient vi sit 15 minutes Ron Doreen [facility] Start: 04-06-2023 (INJECTION) INJECTION Ron Doreen [facility] Start: 04-06-2023 End: 04-06-2023 ambulatory Ron Doreen Other [facility] Other Start: 04-06-2023 Telephone encounter Ron Doreen [facility] Start: 04-02-2023 End: 04-02-2023 ambulatory Ron Doreen Other [facility] Other Start: 04-02-2023 Office outpatient vi sit 15 minutes Ron Doreen [facility] Start: 04-02-2023 Telephone encounter Ron Doreen [facility] Start: 03-07-2023 End: 03-07-2023 ambulatory Ron Doreen Other [facility] Other Start: 03-07-2023 Office outpatient vi sit 15 minutes Ron Doreen [facility] Eliel Start: 01-22-2023 End: 01-23-2023 ambulatory RON DOREEN Facility:[facility] Start: 12-20-2022 End: 12-20-2022 ambulatory Ron Doreen Other [facility] Other Start: 12-20-2022 Office outpatient vi sit 15 minutes Ron Doreen [facility]iel Start: 12-17-2022 End: 12-18-[address] DHRUV RUBI . Facility:[facility] Start: 12-10-2022 End: 12-11-2022 ambulatory RON DOREEN Facility:[facility] Start: 11-20-2022 End: 11-21-[address] BENI APARICIO Facility:[facility] Start: 11-05-2022 End: 11-05-2022 ambulatory Ron Doreen Other [facility] Other Start: 11-05-2022 Office outpatient vi sit 15 minutes Ron Doreen [facility] Start: 10-29-2022 End: 10-30-[address] JANA MONSNO Facility:[facility] Start: 10-24-2022 End: 10-24-[address] LILLIAN ACOSTA . Facility:[facility] Start: 10-24-2022 End: 10-25-[address] DHRUV RUBI . Facility:[facility] Start: 09-27-2022 End: 09-27-2022 ambulatory Jana Monson Other [facility] Other Start: 09-27-2022 Office outpatient vi sit 15 minutes Jana Monson [facility] Start: 09-18-2022 End: 09-19-2022 ambulatory RON DOREEN Facility:[facility] Start: 09-11-2022 End: 09-11-[address] DHRUV RUBI . Facility:[facility] Start: 08-22-2022 End: 08-22-2022 ambulatory Ron Doreen Other [facility] Other Start: 08-22-2022 Office outpatient vi sit 15 minutes Ron Doreen [facility] Start: 08-13-2022 End: 08-14-2022 ambulatory RON DOREEN Facility:[facility] Start: 06-25-2022 End: 06-26-[address] DHRUV RUBI . Facility:[facility] Start: 06-18-2022 End: 06-18-[address] DHRUV RUBI . Facility:[facility] Start: 06-01-2022 End: 06-02-[address] YANET HUERTA Facility:[facility] Start: 05-28-2022 End: 05-28-2022 ambulatory Ron Doreen Other [facility] Other Start: 05-28-2022 Telephone encounter Ron Doreen [facility] Start: 05-21-2022 End: 05-22-[address] DHRUV RUBI . Facility:[facility] Start: 05-16-2022 End: 05-16-2022 ambulatory Ron Doreen Other [facility] Other Start: 05-16-2022 Telephone encounter Ron Doreen [facility] Start: 05-10-2022 End: 05-10-2022 ambulatory Ron Doreen Other [facility] Start: 05-10-2022 Telephone encounter Ron Doreen [facility] Start: 05-08-2022 End: 05-08-2022 ambulatory Ron Doreen Other [facility] Start: 05-08-2022 Office outpatient vi sit 25 minutes Ron Doreen [facility] Start: 05-02-2022 End: 05-03-2022 ambulatory RON DOREEN Facility:[facility] Start: 04-24-2022 End: 04-24-2022 ambulatory Aziz Bakhous Other [facility] Start: 04-24-2022 Telephone encounter Aziz Bakhous [facility] Start: 01-18-2022 End: 01-18-2022 ambulatory Ron Doreen Other [facility] Start: 01-18-2022 Office outpatient vi sit 25 minutes Ron Doreen [facility] Eliel Start: 05-21-2017 End: 05-22-2017 Ambulatory DEFAULT PHYSICIAN Facility:[facility] Procedures Date Procedure Procedure Detail Performing Clinician Start: 11-16-2024 Gluc bld gluc mntr d ev cleared fda spec home use Lorraine Mayer MD Work Phone: Start: 07-13-2024 Gluc bld gluc mntr d ev cleared fda spec home use Lorraine Mayer MD Work Phone: Start: 05-25-2024 SKIN / NAIL BIOPSY Martinnorth Longoria MD Work Phone: Start: 01-17-2024 Ecg routine [...] bypass graft Sarthak Rueda MD Work Phone: History of coronary artery bypass grafting H/O four vessel coronary artery bypass graft Marck George Lazo [employer] Work Phone: Plan of Treatment Date Care Activity Detail Author Start: 03-16-2025 End: 03-16-2025 Patient encounter procedure 03/16/2025 8:35 AM EDT Office Visit [facility] [address] [place] [address] Greg Longoria MD [address] [place], [place] [id number] [facility] Start: 02-15-2025 End: 02-15-2025 Patient encounter procedure 02/15/2025 9:40 AM EDT Office Visit [facility] [address] [place] [address] Lorraine Mayer MD [address] [place] [address] [facility] Start: 01-16-2025 Adult BMI Screening Adult BMI Screening [facility] Start: 01-16-2025 Tobacco Screening Tobacco Screening [facility] Start: 12-31-2024 End: 12-31-2024 Patient encounter procedure 12/31/2024 10:15 AM EDT Procedure Visit [facility] [address] [place] [address] Ga Lai DPM [address] [place] [address] [facility] Start: 11-16-2024 End: 11-16-2024 Patient encounter procedure [facility] Comment on above: Type 2 diabetes mellitus with hyperglyce constance, with long-term 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 ([facility]) Start: 09-28-2024 End: 09-28-2024 Patient [facility] Comment on above: Arrived Start: 07-13-2024 End: 07-13-2024 Patient encounter procedure [facility] Comment on above: Type 2 diabetes mellitus with hyperglyce constance, with long-term 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 ([facility]) Start: 06-25-2024 End: 06-25-2024 Patient encounter procedure [facility] Comment on above: Arrived Start: 06-07-2024 COVID-19 Vaccine ( season) COVID-19 Vaccine () [facility] Start: 06-07-2024 Influenza vaccination [facility] Start: 06-04-2024 End: 06-04-2024 Patient encounter procedure [facility] Comment on above: Arrived Start: 03-19-2024 Adult BMI Screening Adult BMI Screening [facility] Start: 03-19-2024 Tobacco Screening Tobacco Screening [facility] Start: 02-21-2024 End: 02-21-2024 Patient encounter procedure 02/21/2024 2:00 PM EDT Office Visit [facility] [address] [place] [address] Thuan Lucas MD [address] [place] [address] [facility] Start: 01-24-2024 End: 01-16-2025 Basic metabolic 2000 panel - Serum or Plasma Basic Metabolic Panel Lab Routine Stage 4 chronic kidney disease ([facility]) Essential hypertension Expected: 01/24/2024 (Approximate), Expires: 01/16/2025 [facility] Work Phone: Comment on above: Expected: 01/24/2024 (Approximate), Expi res: 01/16/2025 Start: 01-24-2024 End: 01-24-2024 Clinical Support 01/24/2024 10:30 AM EDT Clinical Support [facility] [address] [place] [phone] [facility] Start: 01-17-2024 End: 01-17-2024 Patient encounter procedure 01/17/2024 1:00 PM EDT Office Visit [facility] [address] [place] [phone] Sarthak Rueda MD [address] [place] [address] Thuan Lucas MD [address] [place] [address] [facility] Start: 06-07-2023 COVID-19 Vaccine ( season) COVID-19 Vaccine ( season) [facility] Start: 06-07-2023 Influenza vaccination Influenza Vaccine [facility] Start: 12-28-2021 Depression Screening Depression Screening [facility] Start: 2009 Fall Risk Screening Fall Risk Screening [facility] Start: 1994 Administration of varicella zoster vaccine Zoster (Shingles) Vaccine (1 of 2) [facility] Start: 12-15-1963 DTaP,Tdap and Td Vaccines (1 - Tdap) DTaP,Tdap and Td Vaccines (1 - Tdap) [facility] Start: 1962 Adult BMI Follow Up Plan Adult BMI Follow Up Plan [facility] Start: 1956 Depression Screening Depression Screening [facility] Start: 1944 Medicare Annual Wellness Visit Medicare Annual Wellness Visit [facility] Dermatopathology exam Dermatopat hology exam Pathology and Cytology Timed Rash and other nonspecific skin eruption Release Upon Ordering for 1 Occurrences starting 05/25/2024 [facility] Work Phone: Comment on above: Release Upon Ordering for 1 Occurrences starting 05/25/2024 End: 12-12-2025 Lipid panel Lipid panel Lab Routine Medication management 1 Occurrences starting 2024 until 12/12/2025 [facility] Work Phone: Comment on above: 1 Occurrences starting 2024 until 12/12/2025 End: 12-12-2025 Magnesium [Mass/volume] in Serum or Plasma Magnesium Lab Routine Medication management 1 Occurrences starting 2024 until 12/12/2025 [facility] Work Phone: Comment on above: 1 Occurrences starting 2024 until 12/12/2025 Immunizations Immunization Date Immunization Notes Care Provider [facility] 07-10-2022 unknown vaccine or immune globulin Ga Lai DPM Work Phone: [facility] 07-20-2021 unknown vaccine or immune globulin Ga Lai DPM Work Phone: [facility] 07-18-2020 Seasonal trivalent influenza vaccine, adjuvanted, preservative free Luis Kb PA-C Work Phone: [facility] 07-18-2020 influenza virus vacc ine, unspecified formulation Luis Kb PA-C Work Phone: [facility] 07-22-2019 Seasonal trivalent influenza vaccine, adjuvanted, preservative free Luis Kb PA-C Work Phone: [facility] 07-20-2019 influenza, injectabl e, quadrivalent, preservative free Ga Lai DPM Work Phone: [facility] 07-14-2018 Seasonal trivalent influenza vaccine, adjuvanted, preservative free Luis Kb PA-C Work Phone: [facility] 07-15-2017 pneumococcal conjuga te vaccine, 13 valent Luis Kb PA-C Work Phone: [facility] 07-08-2017 influenza, high dose seasonal, preservative-free Luis Kb PA-C Work Phone: [facility] 07-25-2016 influenza, high dose seasonal, preservative-free Luis Kb PA-C Work Phone: [facility] 07-11-2015 influenza, high dose seasonal, preservative-free Luis Kb PA-C Work Phone: [facility] 07-16-2014 influenza, seasonal, injectable Luis Kb PA-C Work Phone: [facility] 07-10-2013 influenza, seasonal, injectable Luis Kb PA-C Work Phone: [facility] 08-08-2012 influenza virus vacc ine, unspecified formulation Luis Kb PA-C Work Phone: [facility] 08-08-2012 pneumococcal polysaccharide vaccine, 23 valent Luis Kb PA-C Work Phone: [facility] 07-11-2011 influenza virus vacc ine, unspecified formulation Luis Kb PA-C Work Phone: [facility] 08-15-2010 influenza virus vacc ine, unspecified formulation Luis Kb PA-C Work Phone: [facility] 07-26-2009 influenza virus vacc ine, unspecified formulation Luis Kb PA-C Work Phone: [facility] 08-04-2008 influenza virus vacc ine, unspecified formulation Luis Kb PA-C Work Phone: [facility] 08-13-2007 influenza virus vacc ine, unspecified formulation Luis Kb PA-C Work Phone: [facility] 08-11-2004 influenza virus vacc ine, unspecified formulation [facility]-C [facility] 08-09-2003 influenza virus vacc ine, unspecified formulation Luis Quiles PA-C Work Phone: [facility] 08-09-2003 pneumococcal polysaccharide vaccine, 23 valent Luis Quiles PA-C [facility] Phone[facility] Payers Date Payer Category Payer Medicaid [employer] MED[employer]ARE A DVANTAGE [id number] 2021 Medicare [id number] 2021 Medicare HMO [employer] MED[employer]ARE [id number] 1959 Medicare [id number] [id number] 1944 Unknown [id number] 2.16.840.1.077520.3.579.2.593 1944 Unknown [id number] 2.16.840.1.677289.3.579.2.593 1944 Unknown [id number] 2.16.840.1.217520.3.579.2.593 1944 Unknown [id number] 2.16.840.1.664020.3.579.2.593 1944 Unknown [id number] 2.16.840.1.016604.3.579.2.593 1944 Unknown [id number] 2.16.840.1.277592.3.579.2.593 1944 Unknown [id number] 2.16.840.1.067483.3.579.2.593 1944 Unknown [id number] 2.16.840.1.147740.3.579.2.593 1944 Unknown [id number] 2.16.840.1.532969.3.579.2.593 1944 Unknown [id number] 2.16.840.1.797194.3.579.2.593 1944 Unknown [id number] 2.16.840.1.953246.3.579.2.593 1944 Unknown [id number] 2.16.840.1.689695.3.579.2.593 1944 Unknown [id number] 2.16.840.1.881510.3.579.2.593 1944 Unknown [id number] 2.16.840.1.687946.3.579.2.593 1944 Unknown [id number] 2.16.840.1.468887.3.579.2.593 1944 Unknown [id number] 2.16.840.1.387939.3.579.2.593 1944 Unknown [id number] 2.16.840.1.236323.3.579.2.1286 1944 Unknown [id number] 2.16.840.1.793560.3.579.2.1259 1944 Unknown [id number] 2.16.840.1.377780.3.579.2.1259 1944 Unknown [id number] 2.16.840.1.295173.3.579.2.125 1944 Unknown [id number] 2.16.840.1.054115.3.579.2.125 1944 Unknown [id number] 2.16.840.1.465966.3.579.2.9 1944 Unknown [id number] 2.16.840.1.418272.3.579.2.9 1944 Unknown [id number] 2.16.840.1.152265.3.579.2.1258 1944 Unknown [id number] 2.16.840.1.590749.3.579.2.125 1944 Unknown [id number] 2.16.840.1.704375.3.579.2.1258 1944 Unknown [id number] 2.16.840.1.587763.3.579.2.9 1944 Unknown [id number] 2.16.840.1.471441.3.579.2.1259 Unknown Social History Date Type Detail Facility Unknown if ever smoked [facility] Start: 12-28-2020 End: 06-25-2024 Sex Assigned At [facility] Start: 03-14-2023 End: 01-17-2024 Tobacco smoking status NVIS Ex-smoker [facility] End: 10-07-1969 History of tobacco use Current smoker [facility] End: 10-07-1969 History of tobacco use Cigarette Smoker [facility] Start: 03-14-2023 End: 01-17-2024 Tobacco use and exposure Smokeless tobacco non-user [facility] Start: 06-25-2024 End: 09-28-2024 Alcoholic beverage intake Not Asked [facility] Start: 12-28-2020 End: 06-25-2024 History of Social function [facility] Start: 10-21-2023 Alcohol Comment caffeine intake: 1-2 cups per day [facility] Start: 1945 Sex assigned at Not on file [facility] Start: 03-19-2023 End: 01-17-2024 Alcoholic beverage intake Ex-drinker (finding) [facility] Do you belong to any clubs or organizations such as gnosticism groups, unions, fraternal or athletic groups, or school groups? No [facility] Are you now , , , , never or living with a partner? [facility] How hard is it for y ou to pay for the very basics like food, housing, medical care, and heating Not hard at all [facility] Do you feel stress - tense, restless, nervous, or anxious, or unable to sleep at night because your mind is troubled all the time - these days [OSQ] Not at all [facility] Start: 05-21-2017 Sex Female (finding) [facility] Goals Date Patient Goal Desired Activity /State Personal health goal Comment on above: Formatting of this n ote might be different from the original. Evaluation of progress towards goal: return home with homecare and support from [facility], children and grandchildren Clinical Notes 01-18-2022 to 12-21-2024 Telephone Encounter - Cary Goldman CMA - 12/21/2024 10:16 AM EDTTelephone Encounter - Cary Goldman CMA - 12/21/2024 10:16 AM Deny Mayer MD - 11/16/2024 9:50 AM EST Note Date & Type Note Facility 12-21-2024 Miscellaneous Notes Phoned pt and lm on to call office for any further refills. Letter mailed to pt. documented in this encounter [facility] 12-21-2024 Telephone encounter Note Phoned pt and lm on to call office for any further refills. Letter mailed to pt. [facility] 12-12-2024 Miscellaneous Notes Last OV 4//24 Mg 3/27/24 Mg pended; refill letter mailed documented in this encounter [facility] 12-12-2024 Miscellaneous Notes Last OV 01/17/24 Lipid profile 07/08/23 Lipid panel pended; refill letter mailed documented in this encounter [facility] 12-12-2024 Telephone encounter Note Last OV 4 Mg 3/27/24 Mg pended; refill letter mailed [facility] 12-12-2024 Telephone encounter Note Last OV 01/17/24 Lipid profile 07/08/23 Lipid panel pended; refill letter mailed [facility] 11-27-2024 Note Patient here for 6 m o follow up CAD, hypertension, MR, and diastolic dysfunction. Had echo in Jun 2024. She presented to [facility] ED last week with concerns of elevated BP. She takes clonidine PRN for elevated SBP > 200. Denies chest pain and SOB. Does feel palpitations. She wonders if the clonidine patches would help her. Review of Systems Cardiovascular: Positive for irregular heartbeat and palpitations. Musculoskeletal: Positive for myalgias. All other systems reviewed and are negative. [facility] 11-27-2024 Note SUBJECTIVE Reason for Visit: Kylah Robin is a 78 y.o. year old female patient being seen for 6-month follow-up visit. HPI: Kylah Robin is a 78 yo female with PMH of CAD status post CABG (4 vessels) in 2020, diabetes, hypertension, post-op paroxysmal A-fib. 11/27/2024 office visit: The patient was seen in the office today for follow-up after her emergency department visit on November 17, 2024, where she was evaluated for severely elevated blood pressure (260/108 mmHg). She received IV antihypertensive treatment, and her blood pressure improved to 170/62 mmHg before discharge. Today, she is doing well overall, with a current systolic blood pressure of 155 mmHg. She has no complaints and denies chest pain, shortness of breath, palpitations, lightheadedness, dizziness, or headaches. 11/17/2024 ED visit for elevated blood pressure: Summary of visit: Patient checked her BP at home and it was high. She did not miss any doses of her blood pressure medication. Her only symptom is a very mild headache. No chest pain or palpitations or tightness in her chest. No shortness of breath. She states that her blood pressure goes up but like this from time to time. Initial BP was greater than 200 systolic per records. Twelve-lead ECG showed sinus rhythm with a rate of 71 and no acute change. She was subsequently given IV hydralazine and her brought her blood blood pressure down. Her laboratory analysis was unremarkable and she was discharged home. ED visit diagnoses included hypertension, acute kidney injury. 05/11/2024 office visit (Dr. Catherine): Summary of visit: The patient is here for a follow-up after being discharged from [facility] in February 2024. She was admitted for chest pain and congestive heart failure and was evaluated as an inpatient consult (Dr. Catherine). She reports that her chest pain has completely resolved, and her dyspnea on exertion remains unchanged. She is unsure of her current isosorbide dosage but notes that she feels significantly better compared to February. Her shortness of breath is stable, and she has not experienced any further episodes of chest pain. She brought a log of her home blood pressure readings, which included several systolic measurements ranging from the 160s to 170s. Past Medical History: Diagnosis Date Abnormal ECG Chronic kidney disease Coronary artery disease Diabetes mellitus (CMS/HCC) Heart valve disease Hyperlipidemia Hypertension Past Surgical History: Procedure Laterality Date CARDIAC CATHETERIZATION CORONARY ARTERY BYPASS GRAFT Patient Active Problem List Diagnosis Acquired hypothyroidism Anemia Arthritis Atherosclerosis of [place] coronary artery of [place] heart without angina pectoris Combined forms of age-related cataract of left eye Diabetes mellitus (CMS/HCC) Dyspnea Essential hypertension H/O four vessel coronary artery bypass graft Hypertensive urgency Class 1 obesity in adult Unstable angina (CMS/HCC) Other hyperlipidemia Paroxysmal atrial fibrillation (CMS/HCC) Disorder of carotid artery Stage 4 chronic kidney disease (CMS/HCC) Contact dermatitis Family history is unknown by patient. Social History Tobacco Use Smoking status: Former Types: Cigarettes Smokeless tobacco: Never Substance Use Topics Alcohol use: Not Currently OBJECTIVE Visit Vitals BP 155/71 (BP Location: Right arm, Patient Position: Sitting) Pulse 70 Ht 1.689 m (5' 6.5 ) Wt 86.6 kg (191 lb) SpO2 99% BMI 30.37 kg/m??? Smoking Status Former BSA 2.02 m??? Physical Exam Constitutional: General Appearance: well-developed, appears stated age. Level of Distress: no acute distress. Neck: Jugular Veins: normal jugular venous pressure. Lungs: Auscultation: no rales or rhonchi and normal breath sounds. Cardiovascular: Rate And Rhythm: regular. Heart Sounds: normal S1 and s2; Systolic Murmur: not heard. Diastolic Murmur: not heard. Extremities: Bilateral lower extremity trace edema Peripheral Pulses: Pulses: full and equal in all extremities except if noted. Abdomen: Inspection and Palpation: non distended or tender and soft. Musculoskeletal: Inspection: no joint tenderness or swelling. Neurologic: Gait: normal gait. Psychiatric: Mental Status: alert and normal affect. Skin: Inspection and Palpation: warm and dry. Allergies: Allergies Allergen Reactions Amlodipine Other, Rash and Unknown NORVASC Doxazosin Other Iodinated Contrast Media Other Sulfamethoxazole Other Amoxicillin-Pot Clavulanate Other, Rash and Unknown AUGMENTIN Sulfamethoxazole-Trimethoprim Hives, Other, Rash and Unknown BACTRIM Outpatient Medications: Current Outpatient Medications Medication Instructions allopurinol (Zyloprim) 300 mg tablet 100 tablets, oral, Daily aspirin 81 mg, oral, Daily RT atorvastatin (LIPITOR) 80 mg, oral, Nightly carvedilol (COREG) 25 mg, oral, 2 times daily with meals cloNIDine (CATAPRES) 0.1 mg, o (more content not included)... [facility] 11-16-2024 History of Present illness Narrative Kylah [...] said last GFR around 30 with her handbag frames inspector. Interim History: 03/2023 Follow-up visit on 03/12/2023 [...] if it is above 150 use between -12, but she did not check her blood [...] she states GFR is 30, per her handbag frames inspector. Interim History: 08/24 Followup visit on 08/25/18 [...] reading of her . Lab done in [facility] BUN 28/creatinine 1.43, GFR 36, total [...] MG capsule 1 capsule, Every 12 hours nhpdtfcoxrmw-stwm-rfvdrxqo-folic acid (Centrum) chewable tablet 1 tablet, Daily [...] Basal cell carcinoma CAD (coronary artery disease) ([facility]) Chronic kidney disease, stage III (moderate) (HCC) ([facility]) Current use of insulin ([facility] Diabetes (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) HLD (hyperlipidemia) ([facility]) HTN (hypertension) ([facility]) Hypoglycemia Hypothyroidism ([facility]) Obesity with body mass index (BMI) of 30.0 to 39.9 Squamous cell skin cancer Thyroid disease ([facility]) Type 2 diabetes mellitus with other diabetic kidney complication ([facility]) Vitamin D deficiency Past Surgical [...] months (around 03/16/2025). documented in this encounter [facility] 09-06-2024 History of Present illness Narrative Images [...] if problems arise. documented in this encounter [facility] 09-05-2024 Miscellaneous Notes [facility] 01/17/24 [facility] 01/01/24 documented in this encounter [facility] 09-05-2024 Telephone encounter Note [facility] 01/17/24 [facility] 01/01/[address] [facility] 07-13-2024 History of Present illness Narrative [...] said last GFR around 30 with her handbag frames inspector. Interim History: 03/2023 Follow-up visit on 03/12/2023 [...] she states GFR is 30, per her handbag frames inspector. Interim History: 08/24 Followup visit on 08/25/18 [...] reading of her . Lab done in [facility] BUN 28/creatinine 1.43, GFR 36, total [...] MG capsule 1 capsule, Every 12 hours nyjfpothqgfv-dijr-qrnfgawe-folic acid (Centrum) chewable tablet 1 tablet, Oral, [...] Basal cell carcinoma CAD (coronary artery disease) ([facility]) Chronic kidney disease, stage III (moderate) (HCC) ([facility]) Current use of insulin ([facility] Diabetes (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) HLD (hyperlipidemia) ([facility]) HTN (hypertension) ([facility]) Hypoglycemia Hypothyroidism ([facility]) Obesity with body mass index (BMI) of 30.0 to 39.9 Squamous cell skin cancer Thyroid disease ([facility]) Type 2 diabetes mellitus with other diabetic kidney complication ([facility]) Vitamin D deficiency Past Surgical [...] dietary consultation Chronic renal disease, stage IV (CMS/[facility]) Follow up in about 4 months (around 11/13/2024). documented in this encounter [facility] 06-25-2024 History of Present illness Narrative Images [...] the callous site. documented in this encounter [facility] 06-04-2024 History of Present illness Narrative Follow up Diagnosis: Rash unspecified Location: hands Procedure performed: Punch biopsy Status: not as painful Date of procedure: 05/25/2024 Current treatment: Betamethasone Dipro 0.05% cream, here for biopsy results Suture Removal Patient here for suture removal: No complaints of redness, drainage or swelling at site, compliant with wound care. Location: Right Hypothenar [place] Procedure Performed: Punch biopsy Date of Procedure: 05/25/2024 Medications: Betamethasone All pertinent medical history, medications, and allergies were reviewed. General Exam: alert , oriented to person, place, and time , normal affect, well appearing Unaccompanied A focused exam completed based on patient reported problems, see below: 1. Granuloma annulare Left Hand - Anterior, Right Hand - Anterior [place] indurated annular plaques. Flaring today, but improved [...] any new/changing lesions documented in this encounter [facility] 05-25-2024 History of Present illness Narrative Images [...] and other nonspecific skin eruption Right Hypothenar Vado [place] plaques Biopsy today, see procedure note. Start Betamethasone cream bid when flared, hold when clear. Lesion biopsy - Right Hypothenar [place] Type of biopsy: punch Informed consent: discussed [...] pending biopsy results documented in this encounter [facility] 05-11-2024 Note [facility] Cardiology Clinic Note Chief Complaint: Patient here for follow up [facility] discharge back in February 2024. She [...] ventricular gram/pressure Indications (more content not included)... [facility] 03-18-2024 Miscellaneous Notes Asad 01/17/24 Mg 07/08/23 -per 07/09/23 refill encounter Pt needs mg, orders in place. documented in this encounter [facility] 03-18-2024 Telephone encounter Note Asad 01/17/24 Mg 07/08/23 -per 07/09/23 refill encounter Pt needs mg, orders in place. [facility] 02-10-2024 Note [facility] Cardiology Clinic Note Chief Complaint: Patient here to re-establish care. She was recently admitted to [facility] for hypertension. Had CABG since her [...] longstanding diabetic. PAST MEDICAL HISTORY: Diabetes mellitus ([facility]) Hypertensive urgency Arthritis Dyspnea Chest pain Unstable angina ([facility]) Obesity (BMI 30-39.9) H/O four vessel coronary artery bypass graft Paroxysmal atrial fibrillation ([facility]) Atherosclerosis of [place] coronary artery of [place] heart without angina pectoris Obesity (BMI 30-39.9) [...] office She is to follow-up with her handbag frames inspector given her chronic kidney disease Return to clinic in 3 months or sooner should problems arise Carlie Catherine MD (more content not included)... [facility] 01-17-2024 History of Present illness Narrative Kylah Lobito Date of visit: 01/17/2024 Date of : 1945 Age: 78 y.o. Patient Active Problem List Diagnosis Diabetes mellitus ([facility]) Hypertensive urgency Arthritis Dyspnea Other forms of angina pectoris ([facility]) Unstable angina ([facility]) Obesity (BMI 30-39.9) H/O four vessel coronary artery bypass graft Paroxysmal atrial fibrillation ([facility]) Atherosclerosis of [place] coronary artery of [place] heart without angina pectoris Obesity (BMI 30-39.9) Essential hypertension Other hyperlipidemia Class 1 obesity in adult Stage 4 chronic kidney disease ([facility]) 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 She was recently hospitalized at [facility] for poorly controlled blood pressure. Her blood [...] pain Chronic kidney disease COVID-19 Diabetes mellitus ([facility]) Dyspnea Edema GERD (gastroesophageal reflux disease) Gout Hyperlipidemia Hypertensive urgency Hypothyroidism Lower back pain Mitral regurgitation Osteopenia Ventricular hypertrophy No data recorded No data recorded No data recorded Past Surgical History: Procedure Laterality Date CARDIAC CATHETERIZATION CATARACT EXTRACTION, BILATERAL CHOLECYSTECTOMY COLONOSCOPY Coronary angiogram and left ventricular gram/pressure N/A 12/28/2020 Performed by Kassie Nicole MD at [facility] CARDIAC CATH LABS CORONARY ARTERY BYPASS GRAFT X 4 with OCASIO and SVG x3 / EVH LEFT upper and lower AND RIGHT upper LEG / LUCAS N/A 12/29/2020 Performed by Herrera De Paz MD at [place] [facility] D&C FIRST TRIMESTER / TX INCOMPLETE [...] min Stress: No Stress Concern Present (12/28/2020) [employer] [place] [employer]ational [employer] - Occupational Stress Questionnaire Feeling of Stress : Not at all Social Connections: Moderately Integrated (12/28/2020) Social Connection and Isolation Panel [NHANES] Frequency of Communication with Friends and Family: More than three times a week Frequency of Social Gatherings with Friends and Family: More than three times a week Attends Worship Services: More than 4 times per year [...] tablet Reorder IMPRESSIONS/PLAN 1. Paroxysmal atrial fibrillation ([facility]) - POCT EKG - carvediloL (COREG) 25 mg tablet; Take 2 tablets (50 mg total) by mouth in the morning and 2 tablets (50 mg total) before bedtime. Dispense: 180 tablet; Refill: 3 2. Stage 4 chronic kidney disease ([facility]) - Basic Metabolic Panel; Future 3. 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 Other forms of angina pectoris ([facility]) 5. Essential hypertension - Basic Metabolic Panel; Future 6. Atherosclerosis of [place] coronary artery of [place] heart without angina pectoris 7. H/O four [...] BNP. 2. Atherosclerosis of coronary arteries of [place] heart without angina pectoris. Patient has had [...] in about 6 weeks (around 02/28/2024). PCP: DHRUV RUBI MD Referring Physician: Dhruv Rubi MD [address] [place] [address] documented in this encounter [facility] 01-16-2024 Miscellaneous Notes Called patient to remind them to bring their most current copy of their medication list with them to their appt. Patient verbalizes understanding. documented in this encounter [facility] 01-16-2024 Telephone encounter Note Called patient to remind them to bring their most current copy of their medication list with them to their appt. Patient verbalizes understanding. [facility] 11-18-2023 Evaluation note Encounter Date Diagnosis [...] potassium improved with dietary restriction and Lasix. [facility] Other 01-29-2024 Evaluation note* Encounter Date Diagnosis Assessment Notes Treatment Notes Treatment Clinical Notes Oct, Anemia of renal disease (ICD-10 - D63.1) Oct, CKD (chronic kidney disease) stage 4, GFR 15-29 ml/min (ICD-10 - N18.4) [facility] Other 01-09-2024 Evaluation note* Encounter Date Diagnosis [...] potassium improved with dietary restriction and Lasix. [facility] Other 12-04-2023 Evaluation note* Encounter Date Diagnosis [...] 4, GFR 15-29 ml/min (ICD-10 - N18.4) [facility] Other 11-21-2023 Evaluation note* Encounter Date Diagnosis Assessment Notes Treatment Notes Treatment Clinical Notes Aug, Anemia of renal disease (ICD-10 - D63.1) Aug, CKD (chronic kidney disease) stage 4, GFR 15-29 ml/min (ICD-10 - N18.4) [facility] Other 11-09-2023 Evaluation note* Encounter Date Diagnosis [...] of kidney mass hydronephrosis or kidney stones. [facility] Other 10-26-2023 Evaluation note* Encounter Date Diagnosis [...] potassium improved with dietary restriction and Lasix. [facility] Other 09-18-2023 Evaluation note* Encounter Date Diagnosis [...] potassium improved with dietary restriction and Lasix. [facility] Other 08-31-2023 Evaluation note* Encounter Date Diagnosis [...] her to continue to work with Dr. Maeyr for DM management. She he has a [...] potassium improved with dietary restriction and Lasix. [facility] Other 07-25-2023 Evaluation note* Encounter Date Diagnosis [...] to normal with dietary restriction and Lasix. [facility] Other 07-01-2023 Evaluation note* Encounter Date Diagnosis Assessment Notes Treatment Notes Treatment Clinical Notes Apr, CKD (chronic kidney disease) stage 4, GFR 15-29 ml/min (ICD-10 - N18.4) Apr, Anemia of renal disease (ICD-10 - D63.1) [facility] Other 06-27-2023 Evaluation note* Encounter Date Diagnosis [...] to normal with dietary restriction and Lasix. [facility] Other 06-01-2023 Evaluation note* Encounter Date Diagnosis [...] potassium diet and provide information about it. [facility] Other 03-16-2023 Evaluation note* Encounter Date Diagnosis [...] to Continue Vit D 5000 units daily [facility] Other 01-30-2023 Evaluation note* Encounter Date Diagnosis [...] to Continue Vit D 5000 units daily [facility] Other 12-22-2022 Evaluation note* Encounter Date Diagnosis [...] to Continue Vit D 5000 units daily [facility] Other 11-16-2022 Evaluation note* Encounter Date Diagnosis [...] to Continue Vit D 5000 units daily [facility] Other 08-04-2022 Evaluation note* Encounter Date Diagnosis Assessment Notes Treatment Notes Treatment Clinical Notes May, Hypertensive chronic kidney disease with stage 1 through stage 4 chronic kidney disease, or unspecified chronic kidney disease (ICD-10 - I12.9) [facility] Other 08-02-2022 Evaluation note* Encounter Date Diagnosis [...] to Continue Vit D 5000 units daily [facility] Other 07-19-2022 Evaluation note* Encounter Date Diagnosis Assessment Notes Treatment Notes Treatment Clinical Notes Apr, Hypertensive chronic kidney disease with stage 1 through stage 4 chronic kidney disease, or unspecified chronic kidney disease (ICD-10 - I12.9) [facility] Other 04-14-2022 Evaluation note* Encounter Date Diagnosis [...] to take Vit D 1000 units daily [facility] Other Evaluation noteNo InformationNort [facility] Other Evaluation note* Diagnosis Type 2 diabetes mellitus with hyperglycemia, with long-term 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 ([facility])- Primary Vitamin D deficiency Microalbuminuria Proteinuria Hyperlipemia, mixed ([facility]) Mixed hyperlipidemia Primary hypertension ([facility]) Unspecified essential hypertension Insulin long-term use (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) Chronic lymphocytic thyroiditis Encounter for dietary consultation Chronic renal disease, stage IV ([facility]) Chronic kidney disease, Stage IV (severe) documented in this encounter [facility]* Diagnosis Rash and other nonspecific skin eruption- Primary documented [facility] Diagnosis Granuloma annulare- Primary Other specified erythematous condition documented in this encounter [facility]* Diagnosis Onychomycosis- Primary Dermatophytosis of nail Pain in both feet Corns and callosities Type 2 diabetes mellitus without complication, with long-term 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 ([facility]) documented [facility] encounter [facility]* Diagnosis Onychomycosis- Primary Dermatophytosis of nail Pain in both feet Corns and callosities Type 2 diabetes mellitus without complication, with long-term 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 ([facility]) documented [facility]* Diagnosis Type 2 diabetes mellitus with hyperglycemia, with long-term 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 ([facility])- Primary Vitamin D deficiency Microalbuminuria Proteinuria Hyperlipemia, mixed ([facility]) Mixed hyperlipidemia Primary hypertension ([facility] Unspecified essential hypertension Insulin long-term use (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) Chronic lymphocytic thyroiditis Encounter for dietary consultation Chronic renal disease, stage IV (CMS/HCC) Chronic kidney disease, Stage IV (severe) [facility] Diagnosis Atherosclerosis of [place] coronary artery of [place] heart without angina 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 Hypertensive urgency Shortness of breath Paroxysmal atrial fibrillation ([facility]) Atrial fibrillation Localized edema Edema documented in this encounter [facility]* Diagnosis Paroxysmal atrial fibrillation ([facility] Primary Atrial fibrillation Stage 4 chronic kidney disease (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) Other forms of angina pectoris ([facility]) Essential hypertension Unspecified essential hypertension Atherosclerosis of [place] coronary artery of [place] heart without angina 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 Hypertensive urgency Shortness of breath Localized edema Edema documented in this encounter [facility]* Diagnosis Medication management- Primary documented in this encounter [facility]* Diagnosis Medication management- Primary Atherosclerosis of [place] coronary artery of [place] heart without angina 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 Hypertensive urgency Shortness of breath Paroxysmal atrial fibrillation ([facility]) Atrial fibrillation Localized edema Edema documented in this encounter [facility] System[facility] general Narrative - Reported* Type Description [...] NOSE 10/2019 Surgical History QUAD BYPASS AT [facility] [place] 01/01/2021 Hospitalization History ELEVATED BLOOD PRESSURE Hospitalization History SEE ABOVE Hospitalization History COVID 09/2020 [facility] Other Hiscxip general Narrative - Reported* Type Description Date [...] History SEE ABOVE Hospitalization History COVID 09/2020 [facility] Other history general Narrative - Reported* Type [...] History SEE ABOVE Hospitalization History COVID 09/2020 [facility] Other history general Narrative - ReportedSaint Augustine [facility] Other history general Narrative - Reported* Type [...] NOSE 10/2019 Surgical History QUAD BYPASS AT [facility] [place] 01/01/2021 Hospitalization History ELEVATED BLOOD PRESSURE Hospitalization History SEE ABOVE Hospitalization History COVID 09/2020 [facility] Other InstructionsNot on filedocumented in this encounter [facility] filedocumented in this [facility] filedocumented in this encounter [facility] on filedocumented in this encounter [facility]ructionsNot on filedocumented in this encounter [facility] Summary Purpose Family History No Family History Records FoundNo Family History Records FoundNo Family History Records FoundNo Family History Records FoundNo Family History Records Found Advance Directives Date Activated Date Inactivated Comments 12/28/2020 2:33 PM 01/03/2021 7:38 PM Latest Code Status on File Code Status Date Activated Date Inactivated Comments Full Code 12/28/2020 2:33 PM 01/03/2021 7:38 PM Additional Source Comments INFORMATION SOURCE (unrecogn ized section and content) DATE CREATED AUTHOR 04/02/2018 [facility] DATE CREATED AUTHOR AUTHOR'S ORGANIZ ATION 01/27/2023 [facility] DATE CREATED AUTHOR AUTHOR'S ORGANIZ ATION 01/18/2024 [facility] DATE CREATED AUTHOR AUTHOR'S ORGANIZ ATION 11/17/2024 [facility] EPIC DATE CREATED AUTHOR AUTHOR'S ORGANIZ ATION 11/29/2024 [facility] REASON FOR VISIT (unrecogniz ed section and content) Reason Comments Diabetes Mellitus Follow-up Reason Comments Skin Problem Reason Comments Suture / Staple Removal Reason Comments Diabetes Thyroid Problem Follow-up Reason Comments Med Refill Reason Comments Hospital Follow-up [facility] HTN AND 1 MONTH Hypertension Atrial Fibrillation Shortness of Breath Care Teams (unrecognized sec tion and content) Strawhat Sizer Relationship Specialty Start Date End Date Dhruv Rubi MD [address] [place] [address] PCP - General Family Medicine 10/22/23 Strawhat Sizer Relationship Specialty Start Date End Date Dhruv Rubi MD [address] [facility] [place] [address] PCP - General Family Medicine 10/22/23 Strawhat Sizer Relationship Specialty Start Date End Date Dhruv Rubi MD [address] [facility] [place] [address] PCP - General Family Medicine 10/22/23 Strawhat Sizer Relationship Specialty Start Date End Date Dhruv Rubi MD [address] [facility] [place] [address] PCP - General Family Medicine 10/22/23 Strawhat Sizer Relationship Specialty Start Date End Date Dhruv Rubi MD [address] [facility] [place] [address] PCP - General Family Medicine 10/22/23 Strawhat Sizer Relationship Specialty Start Date End Date Dhruv Rubi MD [address] [facility] [place] [address] PCP - General Family Medicine 10/22/23 Strawhat Sizer Relationship Specialty Start Date End Date Dhruv Rubi MD [address] [facility] [place] [address] PCP - General Family Medicine 10/22/23 Strawhat Sizer Relationship Specialty Start Date End Date Dhruv Rubi MD [address] [facility] [place] [address] PCP - General Family Medicine 10/22/23 Strawhat Sizer Relationship Specialty Start Date End Date Dhruv Rubi MD [address] [place] [address] PCP - General Family Medicine 10/22/23 Strawhat Sizer Relationship Specialty Start Date End Date Dhruv Rubi MD [address] [place] [address] PCP - General Family Medicine 10/20/20 Strawhat Sizer Relationship Specialty Start Date End Date Dhruv Rubi MD [address] [place] [phone] PCP - General Family Medicine 10/20/20 Strawhat Sizer Relationship Specialty Start Date End Date Dhruv Rubi MD [address] [place] [phone] PCP - General Family Medicine 10/20/20 Strawhat Sizer Relationship Specialty Start Date End Date Dhruv Rubi MD [address] [place] [phone] PCP - General Family Medicine 10/20/20 Strawhat Sizer Relationship Specialty Start Date End Date Dhruv Rubi MD PCP - General Family Medicine 10/20/20 Strawhat Sizer Relationship Specialty Start Date End Date Dhruv Rubi MD PCP - General Family Medicine 10/20/20 Strawhat Sizer Relationship Specialty Start Date End Date Dhruv Rubi MD PCP - General Family Medicine 10/20/20 Strawhat Sizer Relationship Specialty Start Date End Date Dhruv [...] BE BASED ON THE PRIMARY CLINICAL RECORDS. [employer] [facility]. provides no warranty or guarantee of the accuracy or completeness of information in this document.
== END 2024-12-22 08:48 | disposition home or self-care (01) ==
LOC: MAMMO 08:47
PROVIDERS: PCP Family Medicine; Visit Provider Family Medicine
DX: Z12.31 Encounter for screening mammogram for malignant neoplasm of breast (principal); Z80.3 Family history of malignant neoplasm of breast; Z80.1 Family history of malignant neoplasm of trachea, bronchus and lung
CPT/HCPCS: 77063; 77067

== ENCOUNTER 2024-12-31 09:10 | Outpatient (OUT) | payer MEDICARE, SELFPAY ==
--- OUTSIDE RECORDS SUMMARY | 2024-12-31 09:32 | XMS_ITS | CCD ---
Author Organization [facility] Care Team Providers Care International Manager Name Role Phone PHYSICIAN, DEFAULT Unavailable [...] Unavailable ZIEBER, DR YANET Dominique Consulting Unavailable DORENE, RON Consulting Unavailable HOY ., DR BARTLETT [...] Unavailable Dhruv Rubi MD Primary Care Provider [phone] LORRAINE MAYER Attending Unavailable PETITTSanthosh, GREG A Attending Unavailable GA LAI Attending Unavailable PETITTSanthosh GREG A Attending Unavailable GA LAI Attending Unavailable PETITTSanthosh, GREG A Attending Unavailable PETITTSanthosh, GREG A Attending Unavailable PETITTSanthosh, GREG A Attending Unavailable GA LAI Attending Unavailable LORRAINE MAYER F Attending Unavailable LORRAINE MAYER F Referring Unavailable GA LAI Attending Unavailable Dhruv Rubi MD Primary Care Provider [phone] Dhruv Rubi MD Primary Care Provider [phone] ALEJANDRO ORTIZ Attending Unavailable ELTAHAWY, EHAB Attending Unavailable EL[place]HAWY, EHAB Attending Unavailable Allergies Allergy Classification Reported Allergen(s) Allergy Type Date of Onset Reaction(s) Facility (20 sources) amLODIPine; Translations: [AMLODIPINE] Drug Allergy 03-28-20 05 Unknown, Rash [facility] Repository (20 sources) Amoxicillin / Clavulanate Drug Allergy 11-23-19 Rash [facility] Other (20 sources) Contrast media Propensity to adverse reactions Unknown [facility] Other (2 sources) Doxazosin; Translations: [doxazosin] Drug Allergy Unknown [facility] Other (20 sources) Sulfamethoxazole / Trimethoprim Drug Allergy 11-23-19 [facility] Other (20 sources) Doxazosin; Translations: [DOXAZOSIN] Drug Allergy 11-23-19 Unknown [facility] (9 sources) Amoxicillin / Clavulanate; Translations: [Augmentin] Drug Allergy 11-16-19 16 Unknown [facility] Repository (1 source) amLODIPine Drug Allergy 04-25-20 14 [facility] Repository (1 source) Sulfamethoxazole / Trimethoprim Drug Allergy 03-09-20 13 [facility] Repository (2 sources) Sulfamethoxazole / Trimethoprim; Translations: [SULFAMETHOXAZOLE-T RIMETHOPRIM] Drug Allergy 08-04-20 15 [facility]ository (20 sources) IODINATED CONTRAST MEDIA; Translations: [IODINATED CONTRAST MEDIA] Propensity to adverse reactions to drug (disorder) 11-23-19 Other [facility]ository (17 sources) AMOXICILLIN-POT CLAVULANATE; Translations: [AMOXICILLIN-POT CLAVULANATE] Propensity to adverse reactions to drug (disorder) 11-23-19 Unknown [facility]ository (15 sources) Amoxicillin Drug Allergy 03-12-20 Unknown [facility] Healthcare (15 sources) Doxazosin Drug Allergy 03-12-20 Unknown [facility] Healthcare (16 sources) Sulfamethoxazole; Translations: [SULFAMETHOXAZOLE] Allergy to substance 03-12-20 Unknown [facility] Healthcare (15 sources) Trimethoprim Drug Allergy 03-12-20 Unknown [facility] Medications Current Medications Medication Drug [...] coronary artery bypass graft , 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 , Paroxysmal atrial [...] (LIPITOR) 80 mg tablet Indications: 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 , H/O four vessel coronary artery bypass graft , Hypertensive urgency , Shortness of breath , Paroxysmal atrial fibrillation (CMS-HCC) , Localized edema TAKE 1 TABLET BY MOUTH NIGHTLY 90 tablet 2024 Active Start: 12-27-2022 End: 2024 take 1 tablet by mouth once daily atorvastatin (LIPITOR) 80 mg tablet Indications: 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 every twenty-four hours Liothyronine Sodium 5 MCG 2 tablets on a n empty stomach Orally Once a day Active take [address] [facility] every twenty-four hours lisinopril 20 mg [...] For Her 50 + - Orally Active hizxvjgmvaxp-nion-bnogadqr-f olic acid (Centrum) chewable tablet (15 sources) multivitamin-iro g-jlqlbltg-gdjxj acid (Centrum) chewable tablet Chew 1 tablet [...] not crush, chew, or split.. Active retacrit 06182 unit/ml solution (5 sources) Retacrit 07354 U NIT/ML as directed Injection Active Sennosides-Docusate [...] angina pectoris; Translations: [Atherosclerotic heart disease of jena coronary artery without angina pectoris] Onset: 1 [...] Range Facility Office Visiton 11-27-2024 Follow-up visit [id number] Kylah Robin 1945 F Date Provider Department Center 11/27/2024 ALEJANDRO ESTEVES [facility] Family History Family history unknown: Yes Level of Service:89153 [place] OFFICE/OUTPATIENT ESTABLISHED MOD MDM 30 MIN Normal [facility] Glucose (Bld) [Mass/Vol]Orde red By: Maria Antonia Mo on 11-16-2024 Glucose Blood, POC 220 mg/dL [facility] - Hematology and Cell countson 11-16-2024 HbA1c (Bld) [Mass fraction] 7 % [facility] No Panel InformationOrdered By: Maria Antonia Mo on 11-16-2024 [facility] Glucose (Bld) [Mass/Vol]Orde red By: Maria Antonia Mo on 07-13-2024 Glucose Blood, POC 180 mg/dL [facility] No Panel Informationon 05-25 Type of biopsy: [...] [facility] Office Visiton 05-11-2024 Follow-up visit [id number] Kylah Robin 1945 F Date Provider Department [facility] No family history on file Level of Service:24175 AR OFFICE/OUTPATIENT ESTABLISHED MOD MDM 30 MIN Normal [facility] Office Visiton 02-10-2024 Follow-up visit [id number] Kylah Robin 1945 Date Provider Department Center [facility]2024 [facility] No family history on file Level of Service:72808 AR OFFICE/OUTPATIENT ESTABLISHED MOD MDM 30 MIN Normal [facility] POCT EKGon 01-17-2024 [facility] HEMOGRAM AND PLATELon 2022 Hematocrit (Bld) [Volume fraction] 28.8 % Critically low 36.0-48.0 [facility] Comment on above: Performed By: #### H H #### [facility] [address] [place] [address] Dr. Ember Teague Hemoglobin (Bld) [Mass/Vol] 9.6 g/dL Critically low 12.0-16.0 [facility] Comment on above: Performed By: #### H H #### [facility] [address] [place] [address] Dr. Ember Teague MCH (RBC) [Entitic mass] 30.7 pg Normal 26.7-34.0 [facility] Comment on above: Performed By: #### H H #### [facility] [address] [place] [address] Dr. Ember Teague MCHC (RBC) [Mass/Vol] 33.3 g/dL Normal 29.9-35.2 [facility] Comment on above: Performed By: #### H H #### [facility] [address] [address] [address] Ember Teague MCV (RBC) [Entitic vol] 92.0 fL Normal 81.0-99.0 [facility] Comment on above: Performed By: #### H H #### [facility] [address] [place] [address] Dr. Ember Teague PLT 214 103/ul Normal 150-450 [facility] Comment on above: Performed By: #### H H #### [facility] [address] [place] [address] Dr. Ember Teague RBC 3.13 106/ul Critically low 4.20-5.40 [facility] Comment on above: Performed By: #### H H #### [facility] [address] [place] [address] Dr. Ember Teague WBC 7.4 103/ul Normal 4.0-11.0 [facility] Comment on above: Performed By: #### H H #### [facility] [address] [place] [address] Dr. Ember Teague MAGNESIUMon 01-22-2023 Magnesium [Mass/Vol] 1.8 mg/dL Normal 1.8-2.4 [facility] Comment on above: Performed By: #### M G, RENAL #### [facility] [address] [place] [address] Dr. Ember Teague RENAL FUNCTION PANELon 01-22 Albumin [Mass/Vol] 3.6 g/dL Normal 3.4-5.0 [facility] Comment on above: Performed By: #### M G, RENAL #### [facility] [address] [place] [address] Dr. Ember Teague Calcium [Mass/Vol] 9.7 mg/dL Normal 8.5-10.1 [facility] Comment on above: Performed By: #### M G, RENAL #### [facility] [address] [place] [address] Dr. Ember Teague Chloride [Moles/Vol] 105 mmol/L Normal 98-107 [facility] Comment on above: Performed By: #### M G, RENAL #### [facility] [address] [address] [address] Ember Teague CO2 [Moles/Vol] 22.6 mmol/L Normal 21.0-32.0 [facility] Comment on above: Performed By: #### M G, RENAL #### [facility] [address] [address] [address] Ember Teague Creatinine [Mass/Vol] 2.18 mg/dL Critically high 0.55-1.02 [facility] Comment on above: Performed By: #### M G, RENAL #### [facility] [address] [address] [address] Ember Teague EGFR-AF SWAZI 26 mL/min/1.73m2 Critically low >=60 [facility] Comment on above: Performed By: #### M G, RENAL #### [facility] [address] [place] [address] Dr. Ember Teague EGFR-NON AF SWAZI 22 mL/min/1.73m2 Critically low >=60 [facility] Comment on above: Performed By: #### M G, RENAL #### [facility] [address] [address] [address] Ember Teague Glucose [Mass/Vol] 134 mg/dL Critically high 74-106 [facility] Comment on above: Performed By: #### M G, RENAL #### [facility] [address] [place] [address] Dr. Ember Teague Phosphate [Mass/Vol] 4.6 mg/dL Normal 2.6-4.7 [facility] Comment on above: Performed By: #### M G, RENAL #### [facility] [address] [address] [address] Ember Teague Potassium [Moles/Vol] 5.1 mmol/L Normal 3.5-5.1 [facility] Comment on above: Performed By: #### M G, RENAL #### [facility] [address] [address] [address] Ember Teague Sodium [Moles/Vol] 138 mmol/L Normal 136-145 [facility] Comment on above: Performed By: #### M G, RENAL #### [facility] [address] [address] [address] Ember Teague Urea nitrogen [Mass/Vol] 61.0 mg/dL Critically high 7.0-18.0 [facility] Comment on above: Performed By: #### M G, RENAL #### [facility] [id number] Ember Teague MG MAMM SCREEN 3D MAY CADon 12-17-2022 MG MAMM SCREEN 3D MAY CAD Patient: KYLAH ROBIN Exam Date: 12/17/2022 : 1945 Gender:F Ordering : DR DHRUV RUBI . Admission #: [id number] Family : Order #: [id number] CLICK HERE TO VIEW EXAM RADIOLOGY REPORT [...] lung cancer at age 61. LOCATION: [facility] BREAST COMPOSITION: Scattered areas fibroglandular density. [...] MD on 12/17/2022 at 11:59 Normal [facility] FERRITINon 12-10-2022 Ferritin [Mass/Vol] 681.0 ng/mL Critically high 8.0-252.0 [facility] Comment on above: Performed By: #### P THINT #### [facility] [address] [place] [address] Dr. Ember Teague HEMOGRAM AND PLATELon 2022 Hematocrit (Bld) [Volume fraction] 27.1 % Critically low 36.0-48.0 [facility] Comment on above: Performed By: #### C VDTBH #### [facility] [address] [place] [address] Dr. Ember Teague Hemoglobin (Bld) [Mass/Vol] 9.7 g/dL Critically low 12.0-16.0 [facility] Comment on above: Performed By: #### C VDTBH #### [facility] [address] [place] [address] Dr. Ember Teague MCH (RBC) [Entitic mass] 31.4 pg Normal 26.7-34.0 [facility] Comment on above: Performed By: #### C VDTBH #### [facility] [address] [place] [address] Dr. Ember Teague MCHC (RBC) [Mass/Vol] 35.8 g/dL Critically high 29.9-35.2 [facility] Comment on above: Performed By: #### C VDTBH #### [facility] [address] [place] [address] Dr. Ember Teague MCV (RBC) [Entitic vol] 87.7 fL Normal 81.0-99.0 [facility] Comment on above: Performed By: #### C VDTBH #### [facility] [address] [place] [address] Dr. Ember Teague PLT 218 103/ul Normal 150-450 [facility] Comment on above: Performed By: #### C VDTBH #### [facility] [address] [place] [address] Dr. Ember Teague RBC 3.09 106/ul Critically low 4.20-5.40 [facility] Comment on above: Performed By: #### C VDTBH #### [facility] [address] [place] [address] Dr. Ember Teague WBC 6.6 103/ul Normal 4.0-11.0 [facility] Comment on above: Performed By: #### C VDTBH #### [facility] [address] [address] [address] Ember Teague IRON AND TIBCon 12-10-2022 % SATURATION 30.2 % Normal [facility] Comment on above: Performed By: #### P THINT #### [facility] [address] [address] [address] Ember Teague Iron [Mass/Vol] 84.0 ug/dL Normal 50.0-170.0 [facility] Comment on above: Performed By: #### P THINT #### [facility] [address] [address] [address] Ember Teague TIBC DIRECT 278.0 ug/dL Normal 250.0-450.0 [facility] Comment on above: Performed By: #### P THINT #### [facility] [address] [place] [address] Dr. Ember Teague XR FOOT MAY MIN [...] BENI APARICIO Date: 2022-11-20 14:03 Normal [facility] HEMOGRAM AND PLATELon 2022 Hematocrit (Bld) [Volume fraction] 27.7 % Critically low 36.0-48.0 [facility] Comment on above: Performed By: #### R ENAL #### [facility] [address] [place] [address] Dr. Ember Teague Hemoglobin (Bld) [Mass/Vol] 10.0 g/dL Critically low 12.0-16.0 [facility] Comment on above: Performed By: #### R ENAL #### [facility] [address] [place] [address] Dr. Ember Teague MCH (RBC) [Entitic mass] 31.6 pg Normal 26.7-34.0 [facility] Comment on above: Performed By: #### R ENAL #### [facility] [address] [place] [address] Dr. Ember Teague MCHC (RBC) [Mass/Vol] 36.1 g/dL Critically high 29.9-35.2 [facility] Comment on above: Performed By: #### R ENAL #### [facility] [address] [place] [address] Dr. Ember Teague MCV (RBC) [Entitic vol] 87.7 fL Normal 81.0-99.0 [facility] Comment on above: Performed By: #### R ENAL #### [facility] [address] [place] [address] Dr. Ember Teague PLT 182 103/ul Normal 150-450 [facility] Comment on above: Performed By: #### R ENAL #### [facility] [address] [place] [address] Dr. Ember Teague RBC 3.16 106/ul Critically low 4.20-5.40 [facility] Comment on above: Performed By: #### R ENAL #### [facility] [address] [place] [address] Dr. Ember Teague WBC 6.8 103/ul Normal 4.0-11.0 [facility] Comment on above: Performed By: #### R ENAL #### [facility] [address] [place] [address] Dr. Ember Teague PROF CHEM 8 (BAS METB)on Anion gap [Moles/Vol] 17.6 mmol/L Normal [facility] Comment on above: Performed By: #### C VDTBH #### [facility] [address] [address] [address] Ember Teague Calcium [Mass/Vol] 9.0 mg/dL Normal 8.5-10.1 [facility] Comment on above: Performed By: #### C VDTBH #### [facility] [address] [address] [address] Ember Teague Chloride [Moles/Vol] 104 mmol/L Normal 98-107 [facility] Comment on above: Performed By: #### C VDTBH #### [facility] [address] [place] [address] Dr. Ember Teague CO2 [Moles/Vol] 22.2 mmol/L Normal 21.0-32.0 [facility] Comment on above: Performed By: #### C VDTBH #### [facility] [address] [place] [address] Dr. Ember Teague Creatinine [Mass/Vol] 2.03 mg/dL Critically high 0.55-1.02 [facility] Comment on above: Performed By: #### C VDTBH #### [facility] [address] [address] [address] Ember Teague EGFR-AF SWAZI 29 mL/min/1.73m2 Critically low >=60 [facility] Comment on above: Performed By: #### C VDTBH #### [facility] [address] [place] [address] Dr. Ember Teague EGFR-NON AF SWAZI 24 mL/min/1.73m2 Critically low >=60 [facility] Comment on above: Performed By: #### C VDTBH #### [facility] [address] [place] [address] Dr. Ember Teague Glucose [Mass/Vol] 154 mg/dL Critically high 74-106 [facility] Comment on above: Performed By: #### C VDTBH #### [facility] [address] [place] [address] Dr. Ember Teague Potassium [Moles/Vol] 4.8 mmol/L Normal 3.5-5.1 [facility] Comment on above: Performed By: #### C VDTBH #### [facility] [address] [address] [address] Ember Teague Sodium [Moles/Vol] 139 mmol/L Normal 136-145 [facility] Comment on above: Performed By: #### C VDTBH #### [facility] [address] [address] [address] Ember Teague Urea nitrogen [Mass/Vol] 43.0 mg/dL Critically high 7.0-18.0 [facility] Comment on above: Performed By: #### C VDTBH #### [facility] [address] [address] [address] Ember Teague Urea nitrogen/Creatinine [Mass ratio] 21.2 mg/mg Normal [facility] Comment on above: Performed By: #### C VDTBH #### [facility] [address] [place] [address] Dr. Ember Teague CULTURE SPUTUMon 10-24-2022 CULTURE SPUTUM Culture Observations: Beta lactamase positive Isolate 1 Haemophilus influenzae Moderate growth of Normal [facility] Comment on above: Performed By: #### R ENAL #### [facility] [address] [address] [address] Ember Teague SPUTUM GRAM STAINon 10-24-19 23 COMMENTS Normal [facility] Comment on above: Performed By: #### R ENAL #### [facility] [address] [place] [address] Dr. Ember Teague DIPHTHEROIDS Normal [facility] Comment on above: Performed By: #### R ENAL #### [facility] [address] [place] [address] Dr. mEber Teague EPITHELIALS >25 Normal [facility] Comment on above: Performed By: #### R ENAL #### [facility] [address] [place] [address] Dr. Ember Teague FUNGAL ELEMENTS Normal [facility] Comment on above: Performed By: #### R ENAL #### [facility] [address] [address] [address] Ember Teague GRAM NEG BACILLI Normal [facility] Comment on above: Performed By: #### R ENAL #### [facility] [address] [address] [address] Ember Teague GRAM NEG DIPPLOCOCCI FEW Normal [facility] Comment on above: Performed By: #### R ENAL #### [facility] [address] [address] [address] Ember Teague GRAM POS BACILLI FEW Normal [facility] Comment on above: Performed By: #### R ENAL #### [facility] [address] [address] [address] Ember Teague GRAM POSITIVE COCCI MANY Normal [facility] Comment on above: Performed By: #### R ENAL #### [facility] [address] [address] [address] Ember Teague WBC (Bld) [#/Vol] 10*3/uL Normal [facility] Comment on above: Performed By: #### R ENAL #### [facility] [address] [address] [address] Ember Teague XR CHEST 2 Von [...] ANGELINA BRISENO Date: 2022-10-24 16:22 Normal [facility] FERRITINon 09-18-2022 Ferritin [Mass/Vol] 612.0 ng/mL Critically high 8.0-252.0 [facility] Comment on above: Performed By: #### F ERR, FETIBC #### [facility] [address] [address] [address] Ember Teague HEMOGRAM AND PLATELon 09-18 Hematocrit (Bld) [Volume fraction] 28.1 % Critically low 36.0-48.0 [facility] Comment on above: Performed By: #### C BC #### [facility] [address] [place] [address] Dr. Ember Teague Hemoglobin (Bld) [Mass/Vol] 9.7 g/dL Critically low 12.0-16.0 [facility] Comment on above: Performed By: #### C BC #### [facility] [address] [place] [address] Dr. Ember Teague MCH (RBC) [Entitic mass] 31.3 pg Normal 26.7-34.0 [facility] Comment on above: Performed By: #### C BC #### [facility] [address] [place] [address] Dr. Ember Teague MCHC (RBC) [Mass/Vol] 34.5 g/dL Normal 29.9-35.2 [facility] Comment on above: Performed By: #### C BC #### [facility] [address] [place] [address] Dr. Ember Teague MCV (RBC) [Entitic vol] 90.6 fL Normal 81.0-99.0 [facility] Comment on above: Performed By: #### C BC #### [facility] [address] [place] [address] Dr. Ember Teague PLT 183 103/ul Normal 150-450 [facility] Comment on above: Performed By: #### C BC #### [facility] [address] [place] [address] Dr. Ember Teague RBC 3.10 106/ul Critically low 4.20-5.40 [facility] Comment on above: Performed By: #### C BC #### [facility] [address] [place] [address] Dr. Ember Teague WBC 7.2 103/ul Normal 4.0-11.0 [facility] Comment on above: Performed By: #### C BC #### [facility] [address] [place] [address] Dr. Ember Teague IRON AND TIBCon 09-18-2022 % SATURATION 36.0 % Normal [facility] Comment on above: Performed By: #### F ERR, FETIBC #### [facility] [address] [place] [address] Dr. Ember Teague Iron [Mass/Vol] 77.0 ug/dL Normal 50.0-170.0 [facility] Comment on above: Performed By: #### F ERR, FETIBC #### [facility] [address] [place] [address] Dr. Ember Teague TIBC DIRECT 214.0 ug/dL Critically low 250.0-450.0 [facility] Comment on above: Performed By: #### F ERR, FETIBC #### [facility] [address] [place] [address] Dr. Ember Teague RENAL FUNCTION PANELon 09-18 Albumin [Mass/Vol] 3.7 g/dL Normal 3.4-5.0 [facility] Comment on above: Performed By: #### R ENAL #### [facility] [address] [place] [address] Dr. Ember Teague Calcium [Mass/Vol] 9.5 mg/dL Normal 8.5-10.1 [facility] Comment on above: Performed By: #### R ENAL #### [facility] [address] [place] [address] Dr. Ember Teague Chloride [Moles/Vol] 103 mmol/L Normal 98-107 [facility] Comment on above: Performed By: #### R ENAL #### [facility] [address] [place] [address] Dr. Ember Teague CO2 [Moles/Vol] 21.1 mmol/L Normal 21.0-32.0 [facility] Comment on above: Performed By: #### R ENAL #### [facility] [address] [place] [address] Dr. Ember Teague Creatinine [Mass/Vol] 1.85 mg/dL Critically high 0.55-1.02 [facility] Comment on above: Performed By: #### R ENAL #### [facility] [address] [place] [address] Dr. Ember Teague EGFR-AF SWAZI 32 mL/min/1.73m2 Critically low >=60 [facility] Comment on above: Performed By: #### R ENAL #### [facility] [address] [place] [address] Dr. Ember Teague EGFR-NON AF SWAZI 26 mL/min/1.73m2 Critically low >=60 [facility] Comment on above: Performed By: #### R ENAL #### [facility] [address] [address] [address] Ember Teague Glucose [Mass/Vol] 183 mg/dL Critically high 74-106 [facility] Comment on above: Performed By: #### R ENAL #### [facility] [address] [place] [place] [address] Dr. Ember Teague Phosphate [Mass/Vol] 3.7 mg/dL Normal 2.6-4.7 [facility] Comment on above: Performed By: #### R ENAL #### [facility] [address] [address] [address] Ember Teague Potassium [Moles/Vol] 4.9 mmol/L Normal 3.5-5.1 [facility] Comment on above: Performed By: #### R ENAL #### [facility] [address] [place] [address] Dr. Ember Teague Sodium [Moles/Vol] 138 mmol/L Normal 136-145 [facility] Comment on above: Performed By: #### R ENAL #### [facility] [address] [place] [address] Dr. Ember Teague Urea nitrogen [Mass/Vol] 40.0 mg/dL Critically high 7.0-18.0 [facility] Comment on above: Performed By: #### R ENAL #### [facility] [address] [place] [address] Dr. Ember Teague CULTURE URINEon 09-15-2022 CULTURE [...] F Trimethoprim/Sulfam ethoxazole <=20 S F Normal [facility] Comment on above: Performed By: #### R ENAL #### [facility] [address] [place] [address] Dr. Ember Teague BNPon 09-11-2022 Natriuretic peptide B (Bld) [Mass/Vol] 408.0 pg/mL Normal <=1,800.0 [facility] Comment on above: Performed By: #### P THINT #### [facility] [address] [place] [address] Dr. Ember Teague CBC AUTO DIFFon 09-11-2022 BASO # 0.0 103/ul Normal 0.0-0.1 [facility] Comment on above: Performed By: #### C BC #### [facility] [address] [place] [address] Dr. Ember Teague Basophils/100 WBC (Bld) 0.3 % Normal 0.2-2.0 [facility] Comment on above: Performed By: #### C BC #### [facility] [address] [place] [address] Dr. Ember Teague EO # 0.1 103/ul Normal 0.0-0.7 [facility] Comment on above: Performed By: #### C BC #### [facility] [address] [place] [address] Dr. Ember Teague Eosinophils/100 WBC (Bld) 1.9 % Normal 0.9-7.0 [facility] Comment on above: Performed By: #### C BC #### [facility] [address] [place] [address] Dr. Ember Teague Erythrocyte distribution width (RBC) [Ratio] 15.2 % Critically high 11.0-15.0 [facility] Comment on above: Performed By: #### C BC #### [facility] [address] [place] [address] Dr. Ember Teague Hematocrit (Bld) [Volume fraction] 26.6 % Critically low 36.0-48.0 [facility] Comment on above: Performed By: #### C BC #### [facility] [address] [place] [address] Dr. Ember Teague Hemoglobin (Bld) [Mass/Vol] 9.0 g/dL Critically low 12.0-16.0 [facility] Comment on above: Performed By: #### C BC #### [facility] [address] [place] [address] Dr. Ember Teague IG # 0.02 10e3/ul Normal 0.00-0.03 [facility] Comment on above: Performed By: #### C BC #### [facility] [address] [place] [address] Dr. Ember Teague IG % 0.3 % Normal 0.0-0.5 [facility] Comment on above: Performed By: #### C BC #### [facility] [address] [place] [address] Dr. Ember Teague LYMPH # 1.9 103/ul Normal 1.2-3.8 [facility] Comment on above: Performed By: #### C BC #### [facility] [address] [place] [address] Dr. Ember Teague Lymphocytes/100 WBC (Bld) 32.4 % Normal 20.5-60.0 [facility] Comment on above: Performed By: #### C BC #### [facility] [address] [place] [address] Dr. Ember Teague MANUAL DIFF REQ NO Normal [facility] Comment on above: Performed By: #### C BC #### [facility] [address] [place] [address] Dr. Ember Teague MCH (RBC) [Entitic mass] 31.1 pg Normal 26.7-34.0 [facility] Comment on above: Performed By: #### C BC #### [facility] [address] [address] [address] Ember Teague MCHC (RBC) [Mass/Vol] 33.8 g/dL Normal 29.9-35.2 [facility] Comment on above: Performed By: #### C BC #### [facility] [address] [place] [address] Dr. Ember Teague MCV (RBC) [Entitic vol] 92.0 fL Normal 81.0-99.0 [facility] Comment on above: Performed By: #### C BC #### [facility] [address] [place] [address] Dr. Ember Teague MONO # 0.6 103/ul Normal 0.3-0.8 [facility] Comment on above: Performed By: #### C BC #### [facility] [address] [place] [address] Dr. Ember Teague Monocytes/100 WBC (Bld) 10.0 % Normal 1.7-12.0 [facility] Comment on above: Performed By: #### C BC #### [facility] [address] [place] [address] Dr. Ember Teague NEUT # 3.2 103/ul Normal 1.4-6.5 [facility] Comment on above: Performed By: #### C BC #### [facility] [address] [place] [address] Dr. Ember Teague Neutrophils/100 WBC (Bld) 55.1 % Normal 43.0-75.0 [facility] Comment on above: Performed By: #### C BC #### [facility] [address] [place] [address] Dr. Ember Teague Platelet mean volume (Bld) [Entitic vol] 9.4 fL Critically low 9.5-13.5 [facility] Comment on above: Performed By: #### C BC #### [facility] [address] [place] [address] Dr. Ember Teague PLT 196 103/ul Normal 150-450 [facility] Comment on above: Performed By: #### C BC #### [facility] [address] [place] [address] Dr. Ember Teague RBC 2.89 106/ul Critically low 4.20-5.40 [facility] Comment on above: Performed By: #### C BC #### [facility] [address] [place] [address] Dr. Ember Teague WBC 5.8 103/ul Normal 4.0-11.0 [facility] Comment on above: Performed By: #### C BC #### [facility] [address] [place] [address] Dr. Ember Teague PROF 14(COMP METB)on 022 Albumin [Mass/Vol] 3.7 g/dL Normal 3.4-5.0 [facility] Comment on above: Performed By: #### P THINT #### [facility] [address] [place] [address] Dr. Ember Teague Albumin/Globulin [Mass ratio] 1.0 {ratio} Normal [facility] Comment on above: Performed By: #### P THINT #### [facility] [address] [place] [address] Dr. Ember Teague ALP [Catalytic activity/Vol] 79 U/L Normal 46-116 [facility] Comment on above: Performed By: #### P THINT #### [facility] [address] [place] [address] Dr. Ember Teague ALT [Catalytic activity/Vol] 24 U/L Normal 14-59 [facility] Comment on above: Performed By: #### P THINT #### [facility] [address] [place] [address] Dr. Ember Teague Anion gap [Moles/Vol] 12.8 mmol/L Normal [facility] Comment on above: Performed By: #### P THINT #### [facility] [address] [place] [address] Dr. Ember Teague AST [Catalytic activity/Vol] 17 U/L Normal 15-37 [facility] Comment on above: Performed By: #### P THINT #### [facility] [address] [place] [address] Dr. Ember Teague Bilirubin [Mass/Vol] 0.5 mg/dL Normal 0.2-1.0 [facility] Comment on above: Performed By: #### P THINT #### [facility] [address] [address] [address] Ember Teague Calcium [Mass/Vol] 9.4 mg/dL Normal 8.5-10.1 [facility] Comment on above: Performed By: #### P THINT #### [facility] [address] [address] [address] Ember Teague Chloride [Moles/Vol] 101 mmol/L Normal 98-107 [facility] Comment on above: Performed By: #### P THINT #### [facility] [address] [place] [address] Dr. Ember Teague CO2 [Moles/Vol] 24.3 mmol/L Normal 21.0-32.0 [facility] Comment on above: Performed By: #### P THINT #### [facility] [address] [place] [address] Dr. Ember Teague Creatinine [Mass/Vol] 2.84 mg/dL Critically high 0.55-1.02 [facility] Comment on above: Performed By: #### P THINT #### [facility] [address] [place] [address] Dr. Ember Teague EGFR-AF SWAZI 20 mL/min/1.73m2 Critically low >=60 [facility] Comment on above: Performed By: #### P THINT #### [facility] [address] [place] [address] Dr. Ember Teague EGFR-NON AF SWAZI 16 mL/min/1.73m2 Critically low >=60 [facility] Comment on above: Performed By: #### P THINT #### [facility] [address] [place] [address] Dr. Ember Teague Globulin (S) [Mass/Vol] 3.7 g/dL Normal T [facility] Comment on above: Performed By: #### P THINT #### [facility] [address] [place] [address] Dr. Ember Teague Glucose [Mass/Vol] 174 mg/dL Critically high 74-106 T [facility] Comment on above: Performed By: #### P THINT #### [facility] [address] [address] [address] Ember Teague Potassium [Moles/Vol] 5.1 mmol/L Normal 3.5-5.1 [facility] Comment on above: Performed By: #### P THINT #### [facility] [address] [address] [address] Ember Teague Protein [Mass/Vol] 7.4 g/dL Normal 6.4-8.2 [facility] Comment on above: Performed By: #### P THINT #### [facility] [address] [place] [address] Dr. Ember Teague Sodium [Moles/Vol] 133 mmol/L Critically low 136-145 [facility] Comment on above: Performed By: #### P THINT #### [facility] [address] [place] [address] Dr. Ember Teague Urea nitrogen [Mass/Vol] 68.0 mg/dL Critically high 7.0-18.0 [facility] Comment on above: Performed By: #### P THINT #### [facility] [address] [place] [address] Dr. Ember Teague Urea nitrogen/Creatinine [Mass ratio] 23.9 mg/mg Normal [facility] Comment on above: Performed By: #### P THINT #### [facility] [address] [place] [address] Dr. Ember Teague TROPONIN, HIGH SENSITIVITYon 09-11-2022 HSTROP 9.1 pg/mL Normal 4.0-51.3 [facility] Comment on above: Result Comment: CUT- OFF POINTS HAVE BEEN ESTABLISHED BASED ON THE FOURTH UNIVERSAL DEFINITIONS OF MYOCARDIAL INFARCTION. THE UPPER REFERENCE LIMIT (URL) OF TROPONIN, DEFINED THE 99TH PERCENTILE OF cTnI DISTRIBUTION IN A REFERENCE POPULATION, HAS BEEN CONFIRMED THE DECISION THRESHOLD FOR CO DIAGNOSIS. Performed By: #### P THINT #### [facility] [address] [place] [address] Dr. Ember Teague UA RANDOM W/MICROSCOPICon BACTERIA NONE SEEN Normal NONE SEEN [facility] Comment on above: Performed By: #### C VDTBH #### [facility] [address] [place] [address] Dr. Ember Teague Bilirubin Ql (U) Negative Normal NEGATIVE [facility] Comment on above: Performed By: #### C VDTBH #### [facility] [address] [place] [address] Dr. Ember Teague CAST NONE SEEN Normal NONE SEEN [facility] Comment on above: Performed By: #### C VDTBH #### [facility] [address] [place] [address] Dr. Ember Teague Clarity (U) CLEAR Normal CLEAR [facility] Comment on above: Performed By: #### C VDTBH #### [facility] [address] [place] [address] Dr. Ember Teague Color (U) LT. YELLOW Normal YELLOW [facility] Comment on above: Performed By: #### C VDTBH #### [facility] [address] [place] [address] Dr. Ember Teague Crystals LM Nom (Urine sed) NONE SEEN Normal NONE SEEN [facility] Comment on above: Performed By: #### C VDTBH #### [facility] [address] [place] [address] Dr. Ember Teague Epithelial cells LM Ql (Urine sed) FEW Abnormal NONE SEEN /RARE [facility] Comment on above: Performed By: #### C VDTBH #### [facility] [address] [place] [address] Dr. Ember Teague Glucose Ql (U) Negative Normal NEGATIVE [facility] Comment on above: Performed By: #### C VDTBH #### [facility] [address] [place] [address] Dr. Ember Teague Hemoglobin Ql (U) Negative Normal NEGATIVE [facility] Comment on above: Performed By: #### C VDTBH #### [facility] [address] [place] [address] Dr. Ember Teague Ketones Ql (U) Negative Normal NEGATIVE [facility] Comment on above: Performed By: #### C VDTBH #### [facility] [address] [place] [address] Dr. Ember Teague LEUKOCYTES Negative Normal NEGATIVE [facility] Comment on above: Performed By: #### C VDTBH #### [facility] [address] [place] [address] Dr. Ember Teague MUCOUS NONE SEEN Normal NONE SEEN [facility] Comment on above: Performed By: #### C VDTBH #### [facility] [address] [place] [address] Dr. Ember Teague Nitrite Ql (U) Negative Normal NEGATIVE [facility] Comment on above: Performed By: #### C VDTBH #### [facility] [address] [place] [address] Dr. Ember Teague pH (U) 5.5 [pH] Normal 5-9 [facility] Comment on above: Performed By: #### C VDTBH #### [facility] [address] [place] [address] Dr. Ember Teague RBC NONE SEEN Abnormal 0-2 [facility] Comment on above: Performed By: #### C VDTBH #### [facility] [address] [place] [address] Dr. Ember Teague SPEC GRAVITY 1.010 Normal 1.005-<=1.025 [facility] Comment on above: Performed By: #### C VDTBH #### [facility] [address] [place] [address] Dr. Ember Teague UA PROTEIN Negative Normal NEGATIVE/ TRACE [facility] Comment on above: Performed By: #### C VDTBH #### [facility] [address] [place] [address] Dr. Ember Teague Urobilinogen Qn (U) 0.2 {Esau'U}/dL Normal 0.2 - 1. 0 [facility] Comment on above: Performed By: #### C VDTBH #### [facility] [address] [place] [address] Dr. Ember Teague WBC NONE SEEN Normal NONE SEEN [facility] Comment on above: Performed By: #### C VDTB #### [facility] [address] [place] [address] Dr. Ember Teague CBC AUTO DIFFon 08-13-2022 BASO # 0.0 103/ul Normal 0.0-0.1 [facility] Comment on above: Performed By: #### C BC #### [facility] [address] [place] [address] Dr. Ember Teague Basophils/100 WBC (Bld) 0.3 % Normal 0.2-2.0 [facility] Comment on above: Performed By: #### C BC #### [facility] [address] [place] [address] Dr. Ember Teague EO # 0.2 103/ul Normal 0.0-0.7 [facility] Comment on above: Performed By: #### C BC #### [facility] [address] [place] [address] Dr. Ember Teague Eosinophils/100 WBC (Bld) 3.7 % Normal 0.9-7.0 [facility] Comment on above: Performed By: #### C BC #### [facility] [address] [place] [address] Dr. Ember Teague Erythrocyte distribution width (RBC) [Ratio] 15.0 % Normal 11.0-15.0 [facility] Comment on above: Performed By: #### C BC #### [facility] [address] [place] [address] Dr. Ember Teague Hematocrit (Bld) [Volume fraction] 27.9 % Critically low 36.0-48.0 [facility] Comment on above: Performed By: #### C BC #### [facility] [address] [place] [address] Dr. Ember Teague Hemoglobin (Bld) [Mass/Vol] 9.7 g/dL Critically low 12.0-16.0 [facility] Comment on above: Performed By: #### C BC #### [facility] [address] [place] [address] Dr. Ember Teague IG # 0.01 10e3/ul Normal 0.00-0.03 [facility] Comment on above: Performed By: #### C BC #### [facility] [address] [place] [address] Dr. Ember Teague IG % 0.2 % Normal 0.0-0.5 [facility] Comment on above: Performed By: #### C BC #### [facility] [address] [place] [address] Dr. Ember Teague LYMPH # 1.9 103/ul Normal 1.2-3.8 [facility] Comment on above: Performed By: #### C BC #### [facility] [address] [place] [address] Dr. Ember Teague Lymphocytes/100 WBC (Bld) 32.2 % Normal 20.5-60.0 [facility] Comment on above: Performed By: #### C BC #### [facility] [address] [place] [address] Dr. Ember Teague MANUAL DIFF REQ NO Normal [facility] Comment on above: Performed By: #### C BC #### [facility] [address] [place] [address] Dr. Ember Teague MCH (RBC) [Entitic mass] 31.4 pg Normal 26.7-34.0 [facility] Comment on above: Performed By: #### C BC #### [facility] [address] [place] [address] Dr. Ember Teague MCHC (RBC) [Mass/Vol] 34.8 g/dL Normal 29.9-35.2 [facility] Comment on above: Performed By: #### C BC #### [facility] [address] [place] [address] Dr. Ember Teague MCV (RBC) [Entitic vol] 90.3 fL Normal 81.0-99.0 [facility] Comment on above: Performed By: #### C BC #### [facility] [address] [place] [address] Dr. Ember Teague MONO # 0.6 103/ul Normal 0.3-0.8 [facility] Comment on above: Performed By: #### C BC #### [facility] [address] [place] [address] Dr. Ember Teague Monocytes/100 WBC (Bld) 9.8 % Normal 1.7-12.0 [facility] Comment on above: Performed By: #### C BC #### [facility] [address] [place] [address] Dr. Ember Teague NEUT # 3.2 103/ul Normal 1.4-6.5 [facility] Comment on above: Performed By: #### C BC #### [facility] [address] [place] [address] Dr. Ember Teague Neutrophils/100 WBC (Bld) 53.8 % Normal 43.0-75.0 [facility] Comment on above: Performed By: #### C BC #### [facility] [address] [place] [address] Dr. Ember Teague Platelet mean volume (Bld) [Entitic vol] 10.0 fL Normal 9.5-13.5 [facility] Comment on above: Performed By: #### C BC #### [facility] [address] [place] [address] Dr. Ember Teague PLT 194 103/ul Normal 150-450 [facility] Comment on above: Performed By: #### C BC #### [facility] [address] [place] [address] Dr. Ember Teague RBC 3.09 106/ul Critically low 4.20-5.40 [facility] Comment on above: Performed By: #### C BC #### [facility] [address] [place] [address] Dr. Ember Teague WBC 6.0 103/ul Normal 4.0-11.0 [facility] Comment on above: Performed By: #### C BC #### [facility] [address] [place] [address] Dr. Ember Teague PTH INTACTon 06-26-2022 PTH, Intact 39 pg/mL Normal 15-65 [facility] Comment on above: Performed By: #### P THINT #### [facility] [address] [place] [address] Dr. Ember Teague CBC AUTO DIFFon 06-25-2022 BASO # 0.1 103/ul Normal 0.0-0.1 [facility] Comment on above: Performed By: #### C VDTBH #### [facility] [address] [place] [address] Dr. Ember Teague Basophils/100 WBC (Bld) 0.6 % Normal 0.2-2.0 [facility] Comment on above: Performed By: #### C VDTBH #### [facility] [address] [place] [address] Dr. Ember Teague EO # 0.2 103/ul Normal 0.0-0.7 [facility] Comment on above: Performed By: #### C VDTBH #### [facility] [address] [place] [address] Dr. Ember Teague Eosinophils/100 WBC (Bld) 3.0 % Normal 0.9-7.0 [facility] Comment on above: Performed By: #### C VDTBH #### [facility] [address] [place] [address] Dr. Ember Teague Erythrocyte distribution width (RBC) [Ratio] 14.2 % Normal 11.0-15.0 [facility] Comment on above: Performed By: #### C VDTBH #### [facility] [address] [place] [address] Dr. Ember Teague Hematocrit (Bld) [Volume fraction] 30.9 % Critically low 36.0-48.0 [facility] Comment on above: Performed By: #### C VDTBH #### [facility] [address] [place] [address] Dr. Ember Teague Hemoglobin (Bld) [Mass/Vol] 10.6 g/dL Critically low 12.0-16.0 [facility] Comment on above: Performed By: #### C VDTBH #### [facility] [address] [place] [address] Dr. Ember Teague IG # 0.04 10e3/ul Critically high 0.00-0.03 [facility] Comment on above: Performed By: #### C VDTBH #### [facility] [address] [place] [address] Dr. Ember Teague IG % 0.5 % Normal 0.0-0.5 [facility] Comment on above: Performed By: #### C VDTBH #### [facility] [address] [place] [address] Dr. Ember Teague LYMPH # 2.2 103/ul Normal 1.2-3.8 [facility] Comment on above: Performed By: #### C VDTBH #### [facility] [address] [place] [address] Dr. Ember Teague Lymphocytes/100 WBC (Bld) 27.0 % Normal 20.5-60.0 [facility] Comment on above: Performed By: #### C VDTBH #### [facility] [address] [place] [address] Dr. Ember Teague MANUAL DIFF REQ NO Normal [facility] Comment on above: Performed By: #### C VDTBH #### [facility] [address] [place] [address] Dr. Ember Teague MCH (RBC) [Entitic mass] 31.2 pg Normal 26.7-34.0 [facility] Comment on above: Performed By: #### C VDTBH #### [facility] [address] [place] [address] Dr. Ember Teague MCHC (RBC) [Mass/Vol] 34.3 g/dL Normal 29.9-35.2 [facility] Comment on above: Performed By: #### C VDTBH #### [facility] [address] [place] [address] Dr. Ember Teague MCV (RBC) [Entitic vol] 90.9 fL Normal 81.0-99.0 [facility] Comment on above: Performed By: #### C VDTBH #### [facility] [address] [address] [address] Ember Teague MONO # 0.7 103/ul Normal 0.3-0.8 [facility] Comment on above: Performed By: #### C VDTBH #### [facility] [address] [place] [address] Dr. Ember Teague Monocytes/100 WBC (Bld) 9.2 % Normal 1.7-12.0 [facility] Comment on above: Performed By: #### C VDTBH #### [facility] [address] [place] [address] Dr. Ember Teague NEUT # 4.8 103/ul Normal 1.4-6.5 [facility] Comment on above: Performed By: #### C VDTBH #### [facility] [address] [place] [address] Dr. Ember Teague Neutrophils/100 WBC (Bld) 59.7 % Normal 43.0-75.0 [facility] Comment on above: Performed By: #### C VDTBH #### [facility] [address] [place] [address] Dr. Ember Teague Platelet mean volume (Bld) [Entitic vol] 9.3 fL Critically low 9.5-13.5 [facility] Comment on above: Performed By: #### C VDTBH #### [facility] [address] [place] [address] Dr. Ember Teague PLT 227 103/ul Normal 150-450 [facility] Comment on above: Performed By: #### C VDTBH #### [facility] [address] [place] [address] Dr. Ember eTague RBC 3.40 106/ul Critically low 4.20-5.40 [facility] Comment on above: Performed By: #### C VDTBH #### [facility] [address] [place] [address] Dr. Ember Teague WBC 8.0 103/ul Normal 4.0-11.0 [facility] Comment on above: Performed By: #### C VDTBH #### [facility] [address] [address] [address] Ember Teague MRI LSPINE WO CONon [...] YANET HUERTA Date: 2022-06-25 08:45 Normal [facility] RENAL FUNCTION PANELon 06-25 Albumin [Mass/Vol] 3.9 g/dL Normal 3.4-5.0 [facility] Comment on above: Performed By: #### P THINT #### [facility] [address] [address] [address] Ember Teague Calcium [Mass/Vol] 9.5 mg/dL Normal 8.5-10.1 [facility] Comment on above: Performed By: #### P THINT #### [facility] [address] [address] [address] Ember Teague Chloride [Moles/Vol] 102 mmol/L Normal 98-107 [facility] Comment on above: Performed By: #### P THINT #### [facility] [address] [address] [address] Ember Teague CO2 [Moles/Vol] 23.8 mmol/L Normal 21.0-32.0 [facility] Comment on above: Performed By: #### P THINT #### [facility] [address] [address] [address] Ember Teague Creatinine [Mass/Vol] 1.75 mg/dL Critically high 0.55-1.02 [facility] Comment on above: Performed By: #### P THINT #### [facility] [address] [address] [address] Ember Teague EGFR-AF SWAZI 34 mL/min/1.73m2 Critically low >=60 [facility] Comment on above: Performed By: #### P THINT #### [facility] [address] [address] [address] Ember Teague EGFR-NON AF SWAZI 28 mL/min/1.73m2 Critically low >=60 [facility] Comment on above: Performed By: #### P THINT #### [facility] [address] [address] [address] Ember Teague Glucose [Mass/Vol] 199 mg/dL Critically high 74-106 [facility] Comment on above: Performed By: #### P THINT #### [facility] [address] [address] [address] Ember Teague Phosphate [Mass/Vol] 4.3 mg/dL Normal 2.6-4.7 [facility] Comment on above: Performed By: #### P THINT #### [facility] [address] [address] [address] Ember Teague Potassium [Moles/Vol] 4.9 mmol/L Normal 3.5-5.1 [facility] Comment on above: Performed By: #### P THINT #### [facility] [address] [address] [address] Ember Teague Sodium [Moles/Vol] 135 mmol/L Critically low 136-145 [facility] Comment on above: Performed By: #### P THINT #### [facility] [address] [place] [address] Dr. Ember Teague Urea nitrogen [Mass/Vol] 34.0 mg/dL Critically high 7.0-18.0 [facility] Comment on above: Performed By: #### P THINT #### [facility] [address] [place] [address] Dr. Ember Teague VITAMIN D 25 OHon 06-25-2022 VIT D 25-OH 40.6 ng/mL Normal [facility] Comment on above: Performed By: #### P THINT #### [facility] [address] [place] [address] Dr. Ember Teague VIT D RANGES SEE BELOW Normal [facility] Comment on above: Result Comment: <20 ng/mL Vit D deficient 20 - <30 ng/mL Vit D insufficient 30 - 100 ng/mL Vit D sufficient >100 ng/mL Potential Toxicity Performed By: #### P THINT #### [facility] [address] [place] [address] Dr. Ember Teague [facility]07 SARS-CoV-2 (COVID-19) RNA ALEXX+probe Ql (Unsp spec) Not detected Normal NOT DETECTED [facility] Comment on above: Result Comment: This test is not yet approved or cleared by the [place] FDA. When there are no FDA-approved or cleared tests available, and other criteria are met, FDA can make tests available under an emergency access mechanism called an Emergency Use Authorization (EUA). The EUA for this test is supported by the Philanth[employer] Officer of Health and Human Service's (HHS's) declaration [...] consistent with SARS-CoV-2. Performed By: #### C [facility] #### [facility] [address] LSPINE WO CONon [...] YANET HUERTA Date: 2022-06-01 18:02 Normal [facility] XR LSPINE MIN 4 VIEWSon 05-07 [...] by: YANET HUERTA Date: 2022-05-21 15:25 Normal [facility] PTH INTACTon 05-03-2022 PTH, Intact 60 pg/mL Normal 15-65 [facility] Comment on above: Performed By: #### C VDTBH #### [facility] [address] [address] [address] Ember Teague VIT D 25-OH LABCORPon 2021 Vitamin D, 25-Hydroxy 26.1 ng/mL Critically low 30.0-100.0 [facility] Comment on above: Result Comment: Sara min D deficiency has been defined by the [place] of Medicine and an Endocrine Society practice guideline as a level of serum 25-OH vitamin D less than 20 ng/mL (1,2). The Endocrine Society went on to further define vitamin D insufficiency as a level between 21 and 29 ng/mL (2). 1. IOM ([place] of [employer]). 2010. Dietary reference intakes for calcium and D. [place]: The National Academies Press. 2. Sherice MF, Wendy NC, Huan ZHONG, et al. Evaluation, treatment, and prevention of vitamin D deficiency: an Endocrine Society clinical practice guideline. JCEM. 2010; 96(7):1911-30. Performed By: #### R ENAL #### [facility] [address] [address] [address] Ember Teague FERRITINon 05-02-2022 Ferritin [Mass/Vol] 590.0 ng/mL Critically high 8.0-252.0 [facility] Comment on above: Performed By: #### R ENAL #### [facility] [address] [place] [address] Dr. Ember Teague HEMOGRAM AND PLATELon 2021 Hematocrit (Bld) [Volume fraction] 28.4 % Critically low 36.0-48.0 [facility] Comment on above: Performed By: #### C VDTBH #### [facility] [address] [place] [address] Dr. Ember Teague Hemoglobin (Bld) [Mass/Vol] 9.6 g/dL Critically low 12.0-16.0 [facility] Comment on above: Performed By: #### C VDTBH #### [facility] [address] [place] [address] Dr. Ember Teague MCH (RBC) [Entitic mass] 31.0 pg Normal 26.7-34.0 [facility] Comment on above: Performed By: #### C VDTBH #### [facility] [address] [place] [address] Dr. Ember Teague MCHC (RBC) [Mass/Vol] 33.8 g/dL Normal 29.9-35.2 [facility] Comment on above: Performed By: #### C VDTBH #### [facility] [address] [place] [address] Dr. Ember Teague MCV (RBC) [Entitic vol] 91.6 fL Normal 81.0-99.0 [facility] Comment on above: Performed By: #### C VDTBH #### [facility] [address] [place] [address] Dr. Ember Teague PLT 189 103/ul Normal 150-450 [facility] Comment on above: Performed By: #### C VDTBH #### [facility] [address] [place] [address] Dr. Ember Teague RBC 3.10 106/ul Critically low 4.20-5.40 [facility] Comment on above: Performed By: #### C VDTBH #### [facility] [address] [place] [address] Dr. Ember Teague WBC 6.2 103/ul Normal 4.0-11.0 [facility] Comment on above: Performed By: #### C VDTBH #### [facility] [address] [place] [address] Dr. Ember Teague IRON AND TIBCon 05-02-2022 % SATURATION 34.3 % Normal [facility] Comment on above: Performed By: #### R ENAL #### [facility] [address] [place] [address] Dr. Ember Teague Iron [Mass/Vol] 69.0 ug/dL Normal 50.0-170.0 [facility] Comment on above: Performed By: #### R ENAL #### [facility] [address] [place] [address] Dr. Ember Teague TIBC DIRECT 201.0 ug/dL Critically low 250.0-450.0 [facility] Comment on above: Performed By: #### R ENAL #### [facility] [address] [place] [address] Dr. Ember Teague MAGNESIUMon 05-02-2022 Magnesium [Mass/Vol] 1.7 mg/dL Critically low 1.8-2.4 [facility] Comment on above: Performed By: #### C VDTBH #### [facility] [address] [place] [address] Dr. Ember Teague RENAL FUNCTION PANELon 05-02 Albumin [Mass/Vol] 3.6 g/dL Normal 3.4-5.0 [facility] Comment on above: Performed By: #### C VDTBH #### [facility] [address] [place] [address] Dr. Ember Teague Calcium [Mass/Vol] 9.2 mg/dL Normal 8.5-10.1 [facility] Comment on above: Performed By: #### C VDTBH #### [facility] [address] [place] [address] Dr. Ember Teague Chloride [Moles/Vol] 107 mmol/L Normal 98-107 [facility] Comment on above: Performed By: #### C VDTBH #### [facility] [address] [address] [address] Ember Teague CO2 [Moles/Vol] 21.2 mmol/L Normal 21.0-32.0 [facility] Comment on above: Performed By: #### C VDTBH #### [facility] [address] [address] [address] Ember Teague Creatinine [Mass/Vol] 1.75 mg/dL Critically high 0.55-1.02 [facility] Comment on above: Performed By: #### C VDTBH #### [facility] [address] [address] [address] Ember Teague EGFR-AF SWAZI 34 mL/min/1.73m2 Critically low >=60 [facility] Comment on above: Performed By: #### C VDTBH #### [facility] [address] [place] [address] Dr. Ember Teague EGFR-NON AF SWAZI 28 mL/min/1.73m2 Critically low >=60 [facility] Comment on above: Performed By: #### C VDTBH #### [facility] [address] [address] [address] Ember Teague Glucose [Mass/Vol] 193 mg/dL Critically high 74-106 [facility] Comment on above: Performed By: #### C VDTBH #### [facility] [address] [place] [address] Dr. Ember Teague Phosphate [Mass/Vol] 4.2 mg/dL Normal 2.6-4.7 [facility] Comment on above: Performed By: #### C VDTBH #### [facility] [address] [address] [address] Ember Teague Potassium [Moles/Vol] 5.1 mmol/L Normal 3.5-5.1 [facility] Comment on above: Performed By: #### C VDTBH #### [facility] [address] [address] [address] Ember Teague Sodium [Moles/Vol] 139 mmol/L Normal 136-145 [facility] Comment on above: Performed By: #### C VDTBH #### [facility] [address] [place] [address] Dr. mEber Teague Urea nitrogen [Mass/Vol] 34.0 mg/dL Critically high 7.0-18.0 [facility] Comment on above: Performed By: #### C VDTBH #### [facility] [address] [place] [address] Dr. Ember Teague UA RANDOM W/MICROSCOPICon BACTERIA SMALL Abnormal NONE SEEN [facility] Comment on above: Performed By: #### C VDTBH #### [facility] [address] [place] [address] Dr. Ember Teague Bilirubin Ql (U) Negative Normal NEGATIVE [facility] Comment on above: Performed By: #### C VDTBH #### [facility] [address] [place] [address] Dr. Ember Teague CAST NONE SEEN Normal NONE SEEN [facility] Comment on above: Performed By: #### C VDTBH #### [facility] [address] [place] [address] Dr. Ember Teague Clarity (U) CLEAR Normal CLEAR [facility] Comment on above: Performed By: #### C VDTBH #### [facility] [address] [place] [address] Dr. Ember Teague Color (U) LT. YELLOW Normal YELLOW [facility] Comment on above: Performed By: #### C VDTBH #### [facility] [address] [place] [address] Dr. Ember Teague Crystals LM Nom (Urine sed) NONE SEEN Normal NONE SEEN [facility] Comment on above: Performed By: #### C VDTBH #### [facility] [address] [place] [address] Dr. Ember Teague Epithelial cells LM Ql (Urine sed) MODERATE Abnormal NONE SEEN /RARE [facility] Comment on above: Performed By: #### C VDTBH #### [facility] [address] [place] [address] Dr. Ember Teague Glucose Ql (U) Negative Normal NEGATIVE [facility] Comment on above: Performed By: #### C VDTBH #### [facility] [address] [place] [address] Dr. Ember Teague Hemoglobin Ql (U) Negative Normal NEGATIVE [facility] Comment on above: Performed By: #### C VDTBH #### [facility] [address] [place] [address] Dr. Ember Teague Ketones Ql (U) Negative Normal NEGATIVE [facility] Comment on above: Performed By: #### C VDTBH #### [facility] [address] [place] [address] Dr. Ember Teague LEUKOCYTES TRACE Abnormal NEGATIVE [facility] Comment on above: Performed By: #### C VDTBH #### [facility] [address] [place] [address] Dr. Ember Teague MUCOUS NONE SEEN Normal NONE SEEN [facility] Comment on above: Performed By: #### C VDTBH #### [facility] [address] [place] [address] Dr. Ember Teague Nitrite Ql (U) Negative Normal NEGATIVE [facility] Comment on above: Performed By: #### C VDTBH #### [facility] [address] [place] [address] Dr. Ember Teague pH (U) 5.0 [pH] Normal 5-9 [facility] Comment on above: Performed By: #### C VDTBH #### [facility] [address] [place] [address] Dr. Ember Teague RBC NONE SEEN Abnormal 0-2 [facility] Comment on above: Performed By: #### C VDTBH #### [facility] [address] [place] [address] Dr. Ember Teague SPEC GRAVITY 1.015 Normal 1.005-<=1.025 [facility] Comment on above: Performed By: #### C VDTBH #### [facility] [address] [place] [address] Dr. Ember Teague UA PROTEIN TRACE Normal NEGATIVE/ TRACE [facility] Comment on above: Performed By: #### C VDTBH #### [facility] [address] [place] [address] Dr. Ember Teague Urobilinogen Qn (U) 0.2 {Esau'U}/dL Normal 0.2 - 1. 0 [facility] Comment on above: Performed By: #### C VDTBH #### [facility] [address] [place] [address] Dr. Ember Teague WBC 0-2 Abnormal NONE SEEN [facility] Comment on above: Performed By: #### C VDTBH #### [facility] [address] [place] [address] Dr. Ember Teague URIC ACID SERUMon 05-02-2022 Urate [Mass/Vol] 4.4 mg/dL Normal 2.6-6.0 [facility] Comment on above: Performed By: #### C #### [facility] [address] [place] [address] Dr. Ember Teague URINE T PROTEIN CREAT RATIOo n 05-02-2022 Protein (U) [Mass/Vol] 33.7 mg/dL Critically high <=12.0 [facility] Comment on above: Performed By: #### C VDTBH #### [facility] [address] [place] [address] Dr. Ember Teague UR PROT CREAT RAT 0.69 Normal [facility] Comment on above: Performed By: #### C VDTBH #### [facility] [address] [place] [address] Dr. Ember Teague URINE CREAT 48.93 mg/dL Normal 20.00-300.00 [facility] Comment on above: Performed By: #### C VDTBH #### [facility] [address] [place] [address] Dr. Ember Teague Vital Signs Date Time Vital Sign Value Performing Clinician Facility 11-16-2024 09:49-0500 Body height 168.9 cm Lorraine Mayer MD Work Phone: [facility] 11-16-2024 09:49-0500 Body mass index (BMI) [Ratio] 30.53 kg/m2 Lorraine Mayer MD Work Phone: [facility] 11-16-2024 09:49-0500 Body weight 87.09 kg Lorraine Mayer MD Work Phone: [facility] 11-16-2024 09:49-0500 Diastolic blood pressure 80 mm[Hg] Lorraine Mayer MD Work Phone: [facility] 11-16-2024 09:49-0500 Heart rate 62 /min Lorraine Mayer MD Work Phone: [facility] 11-16-2024 09:49-0500 Respiratory rate 16 /min Lorraine Mayer MD Work Phone: [facility] 11-16-2024 09:49-0500 SaO2% (BldA) [Mass fraction] 97 % Lorraine Mayer MD Work Phone: [facility] 11-16-2024 09:49-0500 Systolic blood pressure 130 mm[Hg] Lorraine Mayer MD Work Phone: [facility] 01-17-2024 12:56-0400 Body height 168.9 cm Thuan Lucas MD Work Phone: [facility] 01-17-2024 12:56-0400 Body mass index (BMI) [Ratio] 30.05 kg/m2 Thuan Lucas MD Work Phone: [facility] 01-17-2024 12:56-0400 Body weight 85.73 kg Thuan Lucas MD Work Phone: [facility] 01-17-2024 12:56-0400 Diastolic blood pressure 70 mm[Hg] Thuan Lucas MD Work Phone: [facility] 01-17-2024 12:56-0400 Heart rate 60 /min Thuan Lucas MD Work Phone: [facility] 01-17-2024 12:56-0400 SaO2% (BldA) [Mass fraction] 98 % Thuan Lucas MD Work Phone: [facility] 01-17-2024 12:56-0400 Systolic blood pressure 180 mm[Hg] Thuan Lucas MD Work Phone: [facility] 11-18-2023 10:00-0500 Body height 168.91 cm Ron Doreen Other [employer] Other 11-18-2023 10:00-0500 Body mass index (BMI) [Ratio] 29.85 kg/m2 Ron Doreen Other [employer] Other 11-18-2023 10:00-0500 Body temperature 97.3 [degF] Ron Doreen Other [employer] Other 11-18-2023 10:00-0500 Body weight 85.19 kg Ron Doreen Other [employer] Other 11-18-2023 10:00-0500 Diastolic blood pressure 79 mm[Hg] Ron Doreen Other [employer] Other 11-18-2023 10:00-0500 Respiratory rate 18 /min Ron Doreen Other [employer] Other 11-18-2023 10:00-0500 SaO2% (BldA) [Mass fraction] 98 % Ron Doreen Other [employer] Other 11-18-2023 10:00-0500 Systolic blood pressure 149 mm[Hg] Ron Doreen Other [employer] Other 11-04-2023 11:00-0500 Body height 168.91 cm Ron Doreen Other [employer] Other 11-04-2023 11:00-0500 Body mass index (BMI) [Ratio] 30.17 kg/m2 Ron Doreen Other [employer] Other 11-04-2023 11:00-0500 Body temperature 97.6 [degF] Ron Doreen Other [employer] Other 11-04-2023 11:00-0500 Body weight 86.09 kg Ron Doreen Other [employer] Other 11-04-2023 11:00-0500 Diastolic blood pressure 76 mm[Hg] Ron Doreen Other [employer] Other 11-04-2023 11:00-0500 Respiratory rate 18 /min Ron Doreen Other [employer] Other 11-04-2023 11:00-0500 SaO2% (BldA) [Mass fraction] 98 % Ron Doreen Other [employer] Other 11-04-2023 11:00-0500 Systolic blood pressure 153 mm[Hg] Ron Doreen Other [employer] Other 10-15-2023 13:00-0500 Body height 168.91 cm Ron Doreen Other [employer] Other 10-15-2023 13:00-0500 Body mass index (BMI) [Ratio] 29.82 kg/m2 Ron Doreen Other [employer] Other 10-15-2023 13:00-0500 Body temperature 97.5 [degF] Ron Doreen Other [employer] Other 10-15-2023 13:00-0500 Body weight 85.1 kg Ron Doreen Other [employer] Other 10-15-2023 13:00-0500 Diastolic blood pressure 68 mm[Hg] Ron Doreen Other [employer] Other 10-15-2023 13:00-0500 Respiratory rate 18 /min Ron Doreen Other [employer] Other 10-15-2023 13:00-0500 SaO2% (BldA) [Mass fraction] 98 % Ron Doreen Other [employer] Other 10-15-2023 13:00-0500 Systolic blood pressure 113 mm[Hg] Ron Doreen Other [employer] Other 08-27-2023 09:40-0500 Body height 168.91 cm Mary Anne [employer] Other [employer] Other 08-27-2023 09:40-0500 Body mass index (BMI) [Ratio] 30.2 kg/m2 Mary Anne [employer] Other [employer] Other 08-27-2023 09:40-0500 Body temperature 96.7 [degF] Mary Anne [employer] Other [employer] Other 08-27-2023 09:40-0500 Body weight 86.18 kg Mary Anne [employer] Other [employer] Other 08-27-2023 09:40-0500 Diastolic blood pressure 72 mm[Hg] Mary Anne Mensahs Other [employer] Other 08-27-2023 09:40-0500 Respiratory rate 18 /min Mary Anne Mensahs Other [employer] Other 08-27-2023 09:40-0500 SaO2% (BldA) [Mass fraction] 98 % Mary Anne Mensahs Other [employer] Other 08-27-2023 09:40-0500 Systolic blood pressure 153 mm[Hg] Mary Anne Mensahs Other [employer] Other 08-15-2023 10:20-0500 Body height 168.91 cm Ron Doreen Other [employer] Other 08-15-2023 10:20-0500 Body mass index (BMI) [Ratio] 30.2 kg/m2 Ron Doreen Other [employer] Other 08-15-2023 10:20-0500 Body temperature 97.1 [degF] Ron Doreen Other [employer] Other 08-15-2023 10:20-0500 Body weight 86.18 kg Ron Doreen Other [employer] Other 08-15-2023 10:20-0500 Diastolic blood pressure 79 mm[Hg] Ron Doreen Other [employer] Other 08-15-2023 10:20-0500 Respiratory rate 18 /min Ron Doreen Other [employer] Other 08-15-2023 10:20-0500 SaO2% (BldA) [Mass fraction] 98 % Ron Doreen Other [employer] Other 08-15-2023 10:20-0500 Systolic blood pressure 164 mm[Hg] Ron Doreen Other [employer] Other 08-13-2023 15:40-0500 Body height 168.91 cm Ron Doreen Other [employer] Other 08-13-2023 15:40-0500 Body mass index (BMI) [Ratio] 30.24 kg/m2 Ron Doreen Other [employer] Other 08-13-2023 15:40-0500 Body temperature 97.2 [degF] Ron Doreen Other [employer] Other 08-13-2023 15:40-0500 Body weight 86.27 kg Ron Doreen Other [employer] Other 08-13-2023 15:40-0500 Diastolic blood pressure 79 mm[Hg] Ron Doreen Other [employer] Other 08-13-2023 15:40-0500 Respiratory rate 18 /min Ron Doreen Other [employer] Other 08-13-2023 15:40-0500 SaO2% (BldA) [Mass fraction] 98 % Ron Doreen Other [employer] Other 08-13-2023 15:40-0500 Systolic blood pressure 186 mm[Hg] Ron Doreen Other [employer] Other 08-01-2023 13:00-0400 Body height 168.91 cm Ron Doreen Other [employer] Other 08-01-2023 13:00-0400 Body mass index (BMI) [Ratio] 30.55 kg/m2 Ron Doreen Other [employer] Other 08-01-2023 13:00-0400 Body temperature 97.8 [degF] Ron Doreen Other [employer] Other 08-01-2023 13:00-0400 Body weight 87.18 kg Ron Doreen Other [employer] Other 08-01-2023 13:00-0400 Diastolic blood pressure 72 mm[Hg] Ron Doreen Other [employer] Other 08-01-2023 13:00-0400 Respiratory rate 18 /min Ron Doreen Other [employer] Other 08-01-2023 13:00-0400 SaO2% (BldA) [Mass fraction] 98 % Ron Doreen Other [employer] Other 08-01-2023 13:00-0400 Systolic blood pressure 160 mm[Hg] Ron Doreen Other [employer] Other 06-24-2023 11:40-0400 Body height 168.91 cm Ron Doreen Other [employer] Other 06-24-2023 11:40-0400 Body mass index (BMI) [Ratio] 29.89 kg/m2 Ron Doreen Other [employer] Other 06-24-2023 11:40-0400 Body temperature 97.3 [degF] Ron Doreen Other [employer] Other 06-24-2023 11:40-0400 Body weight 85.28 kg Ron Doreen Other [employer] Other 06-24-2023 11:40-0400 Diastolic blood pressure 75 mm[Hg] Ron Doreen Other [employer] Other 06-24-2023 11:40-0400 Respiratory rate 18 /min Ron Doreen Other [employer] Other 06-24-2023 11:40-0400 SaO2% (BldA) [Mass fraction] 99 % Ron Doreen Other [employer] Other 06-24-2023 11:40-0400 Systolic blood pressure 129 mm[Hg] Ron Doreen Other [employer] Other 06-06-2023 15:20-0400 Body height 168.91 cm Ron Doreen Other [employer] Other 06-06-2023 15:20-0400 Body mass index (BMI) [Ratio] 29.92 kg/m2 Ron Doreen Other [employer] Other 06-06-2023 15:20-0400 Body temperature 96.5 [degF] Ron Doreen Other [employer] Other 06-06-2023 15:20-0400 Body weight 85.37 kg Ron Doreen Other [employer] Other 06-06-2023 15:20-0400 Diastolic blood pressure 49 mm[Hg] Ron Doreen Other [employer] Other 06-06-2023 15:20-0400 Respiratory rate 18 /min Ron Doreen Other [employer] Other 06-06-2023 15:20-0400 SaO2% (BldA) [Mass fraction] 99 % Ron Doreen Other [employer] Other 06-06-2023 15:20-0400 Systolic blood pressure 128 mm[Hg] Ron Doreen Other [employer] Other 04-30-2023 11:40-0400 Body height 168.91 cm Ron Doreen Other [employer] Other 04-30-2023 11:40-0400 Body mass index (BMI) [Ratio] 30.52 kg/m2 Ron Doreen Other [employer] Other 04-30-2023 11:40-0400 Body temperature 96.9 [degF] Ron Doreen Other [employer] Other 04-30-2023 11:40-0400 Body weight 87.09 kg Ron Doreen Other [employer] Other 04-30-2023 11:40-0400 Diastolic blood pressure 80 mm[Hg] Ron Doreen Other [employer] Other 04-30-2023 11:40-0400 Respiratory rate 18 /min Ron Doreen Other [employer] Other 04-30-2023 11:40-0400 SaO2% (BldA) [Mass fraction] 98 % Ron Doreen Other [employer] Other 04-30-2023 11:40-0400 Systolic blood pressure 150 mm[Hg] Ron Doreen Other [employer] Other 04-06-2023 09:00-0400 Body height 168.91 cm Ron Doreen Other [employer] Other 04-06-2023 09:00-0400 Body mass index (BMI) [Ratio] 30.36 kg/m2 Ron Doreen Other [employer] Other 04-06-2023 09:00-0400 Body weight 86.64 kg Ron Doreen Other [employer] Other 04-06-2023 09:00-0400 Diastolic blood pressure 54 mm[Hg] Ron Doreen Other [employer] Other 04-06-2023 09:00-0400 Respiratory rate 18 /min Ron Doreen Other [employer] Other 04-06-2023 09:00-0400 SaO2% (BldA) [Mass fraction] 98 % Ron Doreen Other [employer] Other 04-06-2023 09:00-0400 Systolic blood pressure 144 mm[Hg] Ron Doreen Other [employer] Other 04-02-2023 14:40-0400 Body height 168.91 cm Ron Doreen Other [employer] Other 04-02-2023 14:40-0400 Body mass index (BMI) [Ratio] 30.55 kg/m2 Ron Doreen Other [employer] Other 04-02-2023 14:40-0400 Body temperature 97 [degF] Ron Doeren Other [employer] Other 04-02-2023 14:40-0400 Body weight 87.18 kg Ron Doreen Other [employer] Other 04-02-2023 14:40-0400 Diastolic blood pressure 76 mm[Hg] Ron Doreen Other [employer] Other 04-02-2023 14:40-0400 Respiratory rate 18 /min Ron Doreen Other [employer] Other 04-02-2023 14:40-0400 SaO2% (BldA) [Mass fraction] 98 % Ron Doreen Other [employer] Other 04-02-2023 14:40-0400 Systolic blood pressure 183 mm[Hg] Ron Doreen Other [employer] Other 03-07-2023 09:20-0400 Body height 168.91 cm Ron Doreen Other [employer] Other 03-07-2023 09:20-0400 Body mass index (BMI) [Ratio] 30.52 kg/m2 Ron Doreen Other [employer] Other 03-07-2023 09:20-0400 Body temperature 97.1 [degF] Ron Doreen Other [employer] Other 03-07-2023 09:20-0400 Body weight 87.09 kg Ron Doreen Other [employer] Other 03-07-2023 09:20-0400 Diastolic blood pressure 72 mm[Hg] Ron Doreen Other [employer] Other 03-07-2023 09:20-0400 Respiratory rate 18 /min Ron Doreen Other [employer] Other 03-07-2023 09:20-0400 SaO2% (BldA) [Mass fraction] 97 % Ron Doreen Other [employer] Other 03-07-2023 09:20-0400 Systolic blood pressure 130 mm[Hg] Ron Doreen Other [employer] Other 12-20-2022 13:20-0400 Body height 168.91 cm Ron Doreen Other [employer] Other 12-20-2022 13:20-0400 Body mass index (BMI) [Ratio] 30.68 kg/m2 Ron Doreen Other [employer] Other 12-20-2022 13:20-0400 Body temperature 97.1 [degF] Ron Doreen Other [employer] Other 12-20-2022 13:20-0400 Body weight 87.54 kg Ron Doreen Other [employer] Other 12-20-2022 13:20-0400 Diastolic blood pressure 72 mm[Hg] Ron Doreen Other [employer] Other 12-20-2022 13:20-0400 Respiratory rate 18 /min Ron Doreen Other [employer] Other 12-20-2022 13:20-0400 SaO2% (BldA) [Mass fraction] 99 % Ron Doreen Other [employer] Other 12-20-2022 13:20-0400 Systolic blood pressure 139 mm[Hg] Ron Doreen Other [employer] Other 11-05-2022 14:00-0500 Body height 168.91 cm Ron Doreen Other [employer] Other 11-05-2022 14:00-0500 Body mass index (BMI) [Ratio] 30.59 kg/m2 Ron Doreen Other [employer] Other 11-05-2022 14:00-0500 Body temperature 96.8 [degF] Ron Doreen Other [employer] Other 11-05-2022 14:00-0500 Body weight 87.27 kg Ron Doreen Other [employer] Other 11-05-2022 14:00-0500 Diastolic blood pressure 72 mm[Hg] Ron Doreen Other [employer] Other 11-05-2022 14:00-0500 Respiratory rate 18 /min Ron Doreen Other [employer] Other 11-05-2022 14:00-0500 SaO2% (BldA) [Mass fraction] 98 % Ron Doreen Other [employer] Other 11-05-2022 14:00-0500 Systolic blood pressure 157 mm[Hg] Ron Doreen Other [employer] Other 09-27-2022 16:00-0500 Body height 168.91 cm Varinderreinaldo Iona Other [employer] Other 09-27-2022 16:00-0500 Body mass index (BMI) [Ratio] 30.55 kg/m2 Jana Monson Other [employer] Other 09-27-2022 16:00-0500 Body temperature 96.8 [degF] Jana Monson Other [employer] Other 09-27-2022 16:00-0500 Body weight 87.18 kg Jana Monson Other [employer] Other 09-27-2022 16:00-0500 Diastolic blood pressure 73 mm[Hg] Jana Monson Other [employer] Other 09-27-2022 16:00-0500 Respiratory rate 18 /min Jana Monson Other [employer] Other 09-27-2022 16:00-0500 SaO2% (BldA) [Mass fraction] 98 % Jana Monson Other [employer] Other 09-27-2022 16:00-0500 Systolic blood pressure 159 mm[Hg] Jana Monson Other [employer] Other 08-22-2022 12:00-0500 Body height 168.91 cm Ron Doreen Other [employer] Other 08-22-2022 12:00-0500 Body mass index (BMI) [Ratio] 30.65 kg/m2 Ron Doreen Other [employer] Other 08-22-2022 12:00-0500 Body temperature 96.9 [degF] Ron Doreen Other [employer] Other 08-22-2022 12:00-0500 Body weight 87.45 kg Ron Doreen Other [employer] Other 08-22-2022 12:00-0500 Diastolic blood pressure 75 mm[Hg] Ron Doreen Other [employer] Other 08-22-2022 12:00-0500 Respiratory rate 18 /min Ron Doreen Other [employer] Other 08-22-2022 12:00-0500 SaO2% (BldA) [Mass fraction] 96 % Ron Doreen Other [employer] Other 08-22-2022 12:00-0500 Systolic blood pressure 121 mm[Hg] Ron Doreen Other [employer] Other 05-08-2022 10:20-0400 Body height 168.91 cm Ron Doreen Other [employer] Other 05-08-2022 10:20-0400 Body mass index (BMI) [Ratio] 31.54 kg/m2 Ron Doreen Other [employer] Other 05-08-2022 10:20-0400 Body temperature 97.6 [degF] Ron Doreen Other [employer] Other 05-08-2022 10:20-0400 Body weight 89.99 kg Ron Doreen Other [employer] Other 05-08-2022 10:20-0400 Diastolic blood pressure 68 mm[Hg] Ron Doreen Other [employer] Other 05-08-2022 10:20-0400 Respiratory rate 18 /min Ron Doreen Other [employer] Other 05-08-2022 10:20-0400 SaO2% (BldA) [Mass fraction] 98 % Ron Doreen Other [employer] Other 05-08-2022 10:20-0400 Systolic blood pressure 131 mm[Hg] Ron Doreen Other [employer] Other 01-18-2022 10:20-0400 Body height 168.91 cm Ron Doreen Other [employer] Other 04-14-2022 10:20-0400 Body mass index (BMI) [Ratio] 31 kg/m2 Ron Doreen Other [employer] Other 01-18-2022 10:20-0400 Body temperature 96.4 [degF] Ron Doreen Other [employer] Other 01-18-2022 10:20-0400 Body weight 88.45 kg Ron Doreen Other [employer] Other 01-18-2022 10:20-0400 Diastolic blood pressure 74 mm[Hg] Ron Doeren Other [employer] Other 01-18-2022 10:20-0400 Respiratory rate 18 /min Ron Doreen Other [employer] Other 01-18-2022 10:20-0400 SaO2% (BldA) [Mass fraction] 97 % Ron Doreen Other [employer] Other 01-18-2022 10:20-0400 Systolic blood pressure 170 mm[Hg] Ron Doreen Other [employer] Other Encounters Encounter Date Encounter Type Care Provider Facility Start: 12-21-2024 End: 12-21-2024 Telephone encounter Cary Goldman CMA [facility] Start: 12-12-2024 End: 2024 Refill Cristina Salamanca 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 Work Phone: [facility] Comment on above: Med Refill Start: 11-27-2024 End: 11-27-2024 ambulatory ALEJANDRO [facility] Start: 11-16-2024 End: 11-16-2024 Parmjit flowsviry Mayer MD Work Phone: [facility] Start: 11-16-2024 End: 11-16-2024 Bamboo flowsheet Lorraine Mayer MD Work Phone: [facility] Start: 11-16-2024 End: 11-16-2024 Office outpatient visit 25 minutes Lorraine Mayer MD Work Phone: [facility] Comment on above: Type 2 diabetes diony itus with hyperglycemia, with long-term 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 ([facility]/HCC) (Primary Dx); Vitamin D deficiency; Microalbuminuria; Hyperlipemia, mixed (CMS/HCC); Primary hypertension (CMS/HCC); Insulin long-term use (CMS/HCC); Epma's disease (CMS/HCC); Encounter for dietary consultation; Chronic renal disease, stage IV (CMS/HCC) Start: 11-16-2024 End: 11-16-2024 ambulatory LORRAINE MAYER Not Available Start: 09-28-2024 End: 09-28-2024 Bamboo flowsheet Ga Lai DPM Work Phone: [facility] Start: 09-28-2024 End: 09-28-2024 Bamboo flowsheet Ga Lai DPM Work Phone: [facility] Start: 09-28-2024 End: 09-28-2024 Patient encounter procedure Ga Lai DPM Work Phone: [facility] Comment on above: Onychomycosis (Prima ry Dx); Pain in both feet; Corns and callosities; Type 2 diabetes mellitus without complication, with long-term 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 ([facility]/HCC) Start: 09-28-2024 End: 09-28-2024 ambulatory GA LAI Not Available Start: 09-05-2024 End: 09-11-2024 Refill Marie Garcia 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[employer] Work Phone: [facility] Comment on above: Med Refill Start: 07-13-2024 End: 07-13-2024 Bamboo flowsheet Lorraine Mayer MD Work Phone: [facility] Start: 07-13-2024 End: 07-13-2024 Bamboo flowsheet Lorraine Mayer MD Work Phone: [facility] Start: 07-13-2024 End: 07-13-2024 Office outpatient visit 25 minutes Lorraine Mayer MD Work Phone: [facility] Comment on above: Type 2 diabetes diony itus with hyperglycemia, with long-term 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 ([facility]/HCC) (Primary Dx); Vitamin D deficiency; Microalbuminuria; Hyperlipemia, mixed (CMS/HCC); Primary hypertension (CMS/HCC); Insulin long-term use (CMS/HCC); 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CMS/HCC); Encounter for dietary consultation; Chronic renal disease, stage IV ([facility]/HCC) Start: 07-13-2024 End: 07-13-2024 ambulatory LORRAINE MAYER Not Available Start: 06-25-2024 End: 06-25-2024 Bamboo flowsheet Ga Lai DPM Work Phone: [facility] Start: 06-25-2024 End: 06-25-2024 Bamboo flowsheet Ga Lai DPM Work Phone: [facility] Start: 06-25-2024 End: 06-25-2024 Patient encounter procedure Ga Lai DPM Work Phone: [facility] Comment on above: Onychomycosis (Prima ry Dx); Pain in both feet; Corns and callosities; Type 2 diabetes mellitus without complication, with long-term 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 ([facility]/HCC) Start: 06-25-2024 End: 06-25-2024 ambulatory GA LAI Not Available Start: 06-04-2024 End: 06-04-2024 Bamboo flowsheet Greg Longoria MD Work Phone: [facility] Start: 06-04-2024 End: 06-04-2024 Bamboo flowsheet [...] End: 03-23-2024 Refill Marie GALLOWAY Work Phone: [facility] Comment on above: Med Refill Start: 03-16-2024 End: 03-16-2024 ambulatory GREG Huynh PETITTI Not Available Start: 02-10-2024 End: 02-10-2024 ambulatory [facility] Start: 01-17-2024 End: 01-17-2024 ambulatory THUAN LUCAS [facility] Start: 01-17-2024 End: 01-17-2024 Office outpatient visit 15 minutes Sarthak Rueda MD Work Phone: [facility] Comment on above: Paroxysmal atrial fi brillation (CMS-HCC) (Primary Dx); Stage 4 chronic kidney disease (CMS-HCC); 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); Other forms of angina pectoris (CMS-HCC); Essential hypertension; 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; H/O four vessel coronary artery bypass graft; Hypertensive urgency; Shortness of breath; Localized edema Start: 01-16-2024 End: 01-16-2024 Telephone encounter Cary Goldman CMA [facility] Start: 01-16-2024 End: 01-16-2024 ambulatory GA Moreno CHERIE Not Available Start: 12-21-2023 Refill Luis dominique PA-C [facility] Comment on above: Med Refill Start: 11-28-2023 End: 11-28-2023 ambulatory GREG NAVARROI Not Available Start: 11-18-2023 End: 11-18-2023 ambulatory Ron Doreen Other [employer] Other Start: 11-18-2023 Office outpatient vi sit 15 minutes Ron Doreen [facility] Start: 11-04-2023 (INJECTION) INJECTION Ron Doreen [facility] Start: 11-04-2023 End: 11-04-2023 ambulatory Ron Doreen Other [employer] Other Start: 10-15-2023 End: 10-15-2023 ambulatory Ron Doreen Other [employer] Other Start: 10-15-2023 Office outpatient vi sit 15 minutes Ron Doreen [facility] Start: 10-08-2023 End: 10-08-2023 ambulatory Aziz Bakhous Other [employer] Other Start: 10-08-2023 Telephone encounter Aziz Bakhous [facility] Start: 09-15-2023 End: 09-15-2023 ambulatory Ron Doreen Other [employer] Other Start: 09-15-2023 Telephone encounter Ron Doreen [facility] Start: 09-09-2023 End: 09-09-2023 ambulatory Ron Doreen Other [employer] Other Start: 09-09-2023 Telephone encounter Ron Doreen [facility] Start: 08-27-2023 (INJECTION) INJECTION Aziz Bakhous [facility] Start: 08-27-2023 End: 08-27-2023 ambulatory Aziz Bakhous Other [employer] Other Start: 08-15-2023 (INJECTION) INJECTION Ron Doreen [facility] Start: 08-15-2023 End: 08-15-2023 ambulatory Ron Doreen Other [employer] Other Start: 08-13-2023 (INJECTION) INJECTION Ron Doreen [facility] Start: 08-13-2023 End: 08-13-2023 ambulatory Ron Doreen Other [employer] Other Start: 08-01-2023 End: 08-01-2023 ambulatory Ron Doreen Other [employer] Other Start: 08-01-2023 Office outpatient vi sit 15 minutes Ron Doreen [facility] Start: 06-24-2023 End: 06-24-2023 ambulatory Ron Doreen Other [employer] Other Start: 06-24-2023 Office outpatient vi sit 10 minutes Ron Doreen [facility] Start: 06-06-2023 End: 06-06-2023 ambulatory Ron Doreen Other [employer] Other Start: 06-06-2023 Office outpatient vi sit 15 minutes Ron Doreen [facility] Eliel Start: 04-30-2023 End: 04-30-2023 ambulatory Ron Doreen Other [employer] Other Start: 04-30-2023 Office outpatient vi sit 15 minutes Ron Doreen [facility] Start: 04-06-2023 (INJECTION) INJECTION Ron Doreen [facility] Start: 04-06-2023 End: 04-06-2023 ambulatory Ron Doreen Other [employer] Other Start: 04-06-2023 Telephone encounter Ron Doreen [facility] Start: 04-02-2023 End: 04-02-2023 ambulatory Ron Doreen Other [employer] Other Start: 04-02-2023 Office outpatient vi sit 15 minutes Ron Doreen [facility] Start: 04-02-2023 Telephone encounter Ron Doreen [facility] Start: 03-07-2023 End: 03-07-2023 ambulatory Ron Doreen Other [employer] Other Start: 03-07-2023 Office outpatient vi sit 15 minutes Ron Doreen [facility] Eliel Start: 01-22-2023 End: 01-23-2023 ambulatory RON DOREEN Facility:[facility] Start: 12-20-2022 End: 12-20-2022 ambulatory Ron Doreen Other [employer] Other Start: 12-20-2022 Office outpatient vi sit 15 minutes Ron Doreen [facility] Eliel Start: 12-17-2022 End: 12-18-[address] DHRUV RUBI . Facility:[facility] Start: 12-10-2022 End: 12-11-2022 ambulatory RON DOREEN Facility:[facility] Start: 11-20-2022 End: 11-21-[address] BENI APARICIO Facility:[facility] Start: 11-05-2022 End: 11-05-2022 ambulatory Ron Doreen Other [employer] Other Start: 11-05-2022 Office outpatient vi sit 15 minutes Ron Doreen [facility] Start: 10-29-2022 End: 10-30-[address] JANA MONSON Facility:[facility] Start: 10-24-2022 End: 10-24-[address] LILLIAN ACOSTA . Facility:[facility] Start: 10-24-2022 End: 10-25-[address] DHRUV RUBI . Facility:[facility] Start: 09-27-2022 End: 09-27-2022 ambulatory Jana Monson Other [employer] Other Start: 09-27-2022 Office outpatient vi sit 15 minutes Jana Monson [facility] Start: 09-18-2022 End: 09-19-2022 ambulatory RON DOREEN Facility:[facility] Start: 09-11-2022 End: 09-11-[address] DHRUV RUBI . Facility:[facility] Start: 08-22-2022 End: 08-22-2022 ambulatory Ron Doreen Other [employer] Other Start: 08-22-2022 Office outpatient vi sit 15 minutes Ron Droeen [facility] Start: 08-13-2022 End: 08-14-2022 ambulatory RON DOREEN Facility:[facility] Start: 06-25-2022 End: 06-26-[address] DHRUV RUBI . Facility:[facility] Start: 06-18-2022 End: 06-18-[address] DHRUV RUBI . Facility:[facility] Start: 06-01-2022 End: 06-02-[address] YANET HUERTA Facility:[facility] Start: 05-28-2022 End: 05-28-2022 ambulatory Ron Doreen Other [employer] Other Start: 05-28-2022 Telephone encounter Ron Doreen [facility] Start: 05-21-2022 End: 05-22-[address] DHRUV RUBI . Facility:[facility] Start: 05-16-2022 End: 05-16-2022 ambulatory Ron Doreen Other [employer] Other Start: 05-16-2022 Telephone encounter Ron Doreen [facility] Start: 05-10-2022 End: 05-10-2022 ambulatory Ron Doreen Other [employer] Other Start: 05-10-2022 Telephone encounter Ron Doreen [facility] Start: 05-08-2022 End: 05-08-2022 ambulatory Ron Doreen Other [employer] Other Start: 05-08-2022 Office outpatient vi sit 25 minutes Ron Doreen [facility] Start: 05-02-2022 End: 05-03-2022 ambulatory RON DOREEN Facility:[facility] Start: 04-24-2022 End: 04-24-2022 ambulatory Aziz Bakhous Other [employer] Other Start: 04-24-2022 Telephone encounter Aziz Bakhous [facility] Start: 01-18-2022 End: 01-18-2022 ambulatory Ron Doreen Other [employer] Other Start: 01-18-2022 Office outpatient vi sit 25 minutes Ron Doreen [facility] Eliel Start: 05-21-2017 End: 05-22-2017 Ambulatory DEFAULT PHYSICIAN Facility:[facility] Procedures Date Procedure Procedure [...] coronary artery bypass graft Marck George 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[employer] Work Phone: Plan of Treatment Date Care Activity Detail Author Start: 03-16-2025 End: 03-16-2025 Patient encounter procedure 03/16/2025 8:35 AM EDT Office Visit [facility] [address] [place] [address] Greg Longoria MD [address] [place], [place] [id number] [facility] Start: 02-15-2025 End: 02-15-2025 Patient encounter procedure 02/15/2025 9:40 AM EDT Office Visit [facility] [address] [place] [address] Lorraine Mayer MD [address] [place] [address] [facility] Start: 01-16-2025 Adult BMI Screening Adult BMI Screening [facility] Start: 01-16-2025 Tobacco Screening Tobacco Screening [facility] Start: 12-31-2024 End: 12-31-2024 Patient encounter procedure 12/31/2024 10:15 AM EDT Procedure Visit [facility] [address] [place] [address] Ga Lai DPM [address] [place] [address] [facility] Start: 11-16-2024 End: 11-16-2024 Patient encounter procedure [facility] Comment on above: Type 2 diabetes mellitus with hyperglyce constance, with long-term 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 ([facility]) Start: 09-28-2024 End: 09-28-2024 Patient encounter procedure [facility] Comment on above: Arrived Start: 07-13-2024 End: 07-13-2024 Patient encounter procedure [facility] Comment on above: Type 2 diabetes mellitus with hyperglyce constance, with long-term 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 ([facility]) Start: 06-25-2024 End: 06-25-2024 Patient encounter procedure [facility] Comment on above: Arrived Start: 06-07-2024 COVID-19 Vaccine ( season) COVID-19 Vaccine () [facility] Start: 06-07-2024 Influenza vaccination [facility] Start: 06-04-2024 End: 06-04-2024 Patient encounter procedure [facility] Comment on above: Arrived Start: 03-19-2024 Adult BMI Screening Adult BMI Screening [facility] Start: 03-19-2024 Tobacco Screening Tobacco Screening [facility] Start: 02-21-2024 End: 02-21-2024 Patient encounter procedure 02/21/2024 2:00 PM EDT Office Visit [facility] [address] [place] [address] Thuan Lucas MD [address] [place] [address] [facility] Start: 01-24-2024 End: 01-16-2025 Basic metabolic 2000 panel - Serum or Plasma Basic Metabolic Panel Lab Routine Stage 4 chronic kidney disease ([facility]-HCC) Essential hypertension Expected: 01/24/2024 (Approximate), Expires: 01/16/2025 [facility] Work Phone: Comment on above: Expected: 01/24/2024 (Approximate), Expi res: 01/16/2025 Start: 01-24-2024 End: 01-24-2024 Clinical Support 01/24/2024 10:30 AM EDT Clinical Support [facility] [address] [place] [id number] [facility] Start: 01-17-2024 End: 01-17-2024 Patient encounter procedure 01/17/2024 1:00 PM EDT Office Visit [facility] [address] [place] [id number] Sarthak Rueda MD [address] [place] [address] Thuan Lucas MD [address] [place] [address] [facility] Start: 06-07-2023 COVID-19 Vaccine ( season) COVID-19 Vaccine ( season) [facility] Start: 06-07-2023 Influenza vaccination Influenza Vaccine [facility] Start: 12-28-2021 Depression Screening Depression Screening [facility] Start: 2009 Fall Risk Screening Fall Risk Screening [facility] Start: 1994 Administration of varicella zoster vaccine Zoster (Shingles) Vaccine (1 of 2) [facility] Start: 12-15-1963 DTaP,Tdap and Td Vaccines (1 - Tdap) DTaP,Tdap and Td Vaccines (1 - Tdap) [facility] Start: 1962 Adult BMI Follow Up Plan Adult BMI Follow Up Plan [facility] Start: 1956 Depression Screening Depression Screening [facility] Start: 1944 Medicare Annual Wellness Visit Medicare Annual Wellness Visit [facility] Dermatopathology exam Dermatopat hology exam Pathology and Cytology Timed Rash and other nonspecific skin eruption Release Upon Ordering for 1 Occurrences starting 05/25/2024 [facility] [employer] Work Phone: Comment on above: Release Upon Ordering for 1 Occurrences starting 05/25/2024 End: 12-12-2025 Lipid panel Lipid panel Lab Routine Medication management 1 Occurrences starting 2024 until 12/12/2025 [employer] Work Phone: Comment on above: 1 Occurrences starting 2024 until 12/12/2025 End: 12-12-2025 Magnesium [Mass/volume] in Serum or Plasma Magnesium Lab Routine Medication management 1 Occurrences starting 2024 until 12/12/2025 [employer] Work Phone: Comment on above: 1 Occurrences starting 2024 until 12/12/2025 Immunizations Immunization Date Immunization Notes Care Provider [facility] 07-10-2022 unknown vaccine or immune globulin Ga Lai DPM Work Phone: [facility] 07-20-2021 unknown vaccine or immune globulin Ga Lai DPM Work Phone: [facility] 07-18-2020 Seasonal trivalent influenza vaccine, adjuvanted, preservative free Luis Kb PA-C Work Phone: [facility] 07-18-2020 influenza virus vacc ine, unspecified formulation Luis Kb PA-C Work Phone: [facility] 07-22-2019 Seasonal trivalent influenza vaccine, adjuvanted, preservative free Luis Kb PA-C Work Phone: [facility] 07-20-2019 influenza, injectabl e, quadrivalent, preservative free Ga Lai DPM Work Phone: [facility] 07-14-2018 Seasonal trivalent influenza vaccine, adjuvanted, preservative free Luis Kb PA-C Work Phone: [facility] 07-15-2017 pneumococcal conjuga te vaccine, 13 valent Luis Kb PA-C Work Phone: [facility] 07-08-2017 influenza, high dose seasonal, preservative-free Luis Kb PA-C Work Phone: [facility] 07-25-2016 influenza, high dose seasonal, preservative-free Luis Kb PA-C Work Phone: [facility] 07-11-2015 influenza, high dose seasonal, preservative-free Luis Kb PA-C Work Phone: [facility] 07-16-2014 influenza, seasonal, injectable Luis Kb PA-C Work Phone: [facility] 07-10-2013 influenza, seasonal, injectable Luis Kb PA-C Work Phone: [facility] 08-08-2012 influenza virus vacc ine, unspecified formulation Luis Kb PA-C Work Phone: [facility] 08-08-2012 pneumococcal polysaccharide vaccine, 23 valent Luis Kb PA-C Work Phone: [facility] 07-11-2011 influenza virus vacc ine, unspecified formulation Luis Kb PA-C Work Phone: [facility] 08-15-2010 influenza virus vacc ine, unspecified formulation Luis Kb PA-C Work Phone: [facility] 07-26-2009 influenza virus vacc ine, unspecified formulation Luis Kb PA-C Work Phone: [facility] 08-04-2008 influenza virus vacc ine, unspecified formulation Luis Kb PA-C Work Phone: [facility] [facility] 08-13-2007 influenza virus vacc ine, unspecified formulation Luis Kb PA-C Work Phone: [facility] 08-11-2004 influenza virus vacc ine, unspecified formulation Luis Kb PA-C [facility] 08-09-2003 influenza virus vacc ine, unspecified formulation Luis Quiles PA-C [facility] 08-09-2003 pneumococcal polysaccharide vaccine, 23 valent Luis Quiles PA-C [facility] Phone[facility] Payers Date Payer Category Payer Medicaid [employer] MEDICARE A DVANTAGE [id number] 2021 Medicare [id number] 2021 Medicare HMO [employer] MEDICARE [id number] 1959 Medicare [id number] 2.16.840.1.862986.19 1944 Unknown [id number] 2.16.840.1.047505.3.579.2.593 1944 Unknown [id number] 2.16.840.1.876241.3.579.2.593 1944 Unknown [id number] 2.16.840.1.386783.3.579.2.593 1944 Unknown [id number] 2.16.840.1.490978.3.579.2.593 1944 Unknown [id number] 2.16.840.1.824912.3.579.2.593 1944 Unknown [id number] 2.16.840.1.146464.3.579.2.593 1944 Unknown [id number] 2.16.840.1.742128.3.579.2.593 1944 Unknown [id number] 2.16.840.1.969681.3.579.2.593 1944 Unknown [id number] 2.16.840.1.734553.3.579.2.593 1944 Unknown [id number] 2.16.840.1.040864.3.579.2.593 1944 Unknown [id number] 2.16.840.1.432816.3.579.2.593 1944 Unknown [id number] 2.16.840.1.427329.3.579.2.593 1944 Unknown [id number] 2.16.840.1.049034.3.579.2.593 1944 Unknown [id number] 2.16.840.1.758786.3.579.2.593 1944 Unknown [id number] 2.16.840.1.319526.3.579.2.593 1944 Unknown [id number] 2.16.840.1.323728.3.579.2.593 1944 Unknown [id number] 2.16.840.1.329201.3.579.2.1286 1944 Unknown [id number] 2.16.840.1.246260.3.579.2.1259 1944 Unknown [id number] 2.16.840.1.644485.3.579.2.1259 1944 Unknown [id number] 2.16.840.1.356483.3.579.2.125 1944 Unknown [id number] 2.16.840.1.989089.3.579.2.125 1944 Unknown [id number] 2.16.840.1.367280.3.579.2.9 1944 Unknown [id number] 2.16.840.1.715239.3.579.2.9 1944 Unknown [id number] 2.16.840.1.195569.3.579.2.1258 1944 Unknown [id number] 2.16.840.1.225359.3.579.2.125 1944 Unknown [id number] 2.16.840.1.725325.3.579.2.1258 1944 Unknown [id number] 2.16.840.1.225522.3.579.2.9 1944 Unknown [id number] 2.16.840.1.896737.3.579.2.1259 Unknown Social History Date Type Detail Facility Unknown if ever smoked [facility] Other Start: 12-28-2020 End: 06-25-2024 Sex Assigned At [facility] Start: 03-14-2023 End: 01-17-2024 Tobacco smoking status TNIS Ex-smoker [facility] End: 10-07-1969 History of tobacco use Current smoker [facility] End: 10-07-1969 History of tobacco use Cigarette Smoker [facility] Start: 03-14-2023 End: 01-17-2024 Tobacco use and exposure Smokeless tobacco non-user [facility] Start: 06-25-2024 End: 09-28-2024 Alcoholic beverage intake Not Asked [facility] Start: 12-28-2020 End: 06-25-2024 History of Social function [facility] Start: 10-21-2023 Alcohol Comment caffeine intake: 1-2 cups per day [facility] Start: 1945 Sex assigned at Not on file [facility] Start: 03-19-2023 End: 01-17-2024 Alcoholic beverage intake Ex-drinker (finding) [facility] Do you belong to any clubs or organizations such as baptist groups, unions, fraternal or athletic groups, or school groups? No [facility] Are you now , , , , never or living with a partner? [facility] How hard is it for y ou to pay for the very basics like food, housing, medical care, and heating Not hard at all [facility] Do you feel stress - tense, restless, nervous, or anxious, or unable to sleep at night because your mind is troubled all the time - these days [OSQ] Not at all [facility] Start: 05-21-2017 Sex Female (finding) [facility] Goals Date Patient Goal Desired [...] mailed to pt. documented in this encounter [facility] 12-21-2024 Telephone encounter Note Phoned pt and lm on to call office for any further refills. Letter mailed to pt. [facility] 12-12-2024 Miscellaneous Notes Last OV 4//24 Mg 3/27/24 Mg pended; refill letter mailed documented in this encounter [facility] 12-12-2024 Miscellaneous Notes Last OV 01/17/24 Lipid profile 07/08/23 Lipid panel pended; refill letter mailed documented in this encounter [facility] 12-12-2024 Telephone encounter Note Last OV 4 Mg 3/27/24 Mg pended; refill letter mailed [facility] 12-12-2024 Telephone encounter Note Last OV 01/17/24 Lipid profile 07/08/23 Lipid panel pended; refill letter mailed [facility] 11-27-2024 Note Patient here for 6 m o follow up CAD, hypertension, MR, and diastolic dysfunction. Had echo in Jun 2024. She presented to [facility] ED last week with concerns of elevated BP. She takes clonidine PRN for elevated SBP > 200. Denies chest pain and SOB. Does feel palpitations. She wonders if the clonidine patches would help her. Review of Systems Cardiovascular: Positive for irregular heartbeat and palpitations. Musculoskeletal: Positive for myalgias. All other systems reviewed and are negative. [facility] 11-27-2024 Note SUBJECTIVE Reason for Visit: [...] for a follow-up after being discharged from [facility] in February 2024. She was admitted [...] Diagnosis Acquired hypothyroidism Anemia Arthritis 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 Combined forms of [...] 0.1 mg, o (more content not included)... [facility] 11-16-2024 History of Present illness Narrative [...] said last GFR around 30 with her outside event sales specialist. Interim History: 03/2023 Follow-up visit on [...] she states GFR is 30, per her outside event sales specialist. Interim History: 08/24 Followup visit on [...] reading of her . Lab done in [facility] BUN 28/creatinine 1.43, GFR 36, total [...] MG capsule 1 capsule, Every 12 hours bnwgjfqnawty-tdff-qsvtyoto-folic acid (Centrum) chewable tablet 1 tablet, Daily [...] Basal cell carcinoma CAD (coronary artery disease) ([facility]) Chronic kidney disease, stage III (moderate) (HCC) ([facility]) Current use of insulin ([facility] Diabetes ([facility]) Frozen shoulder GERD (gastroesophageal reflux disease) Gout 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[facility]) HLD (hyperlipidemia) ([facility]) HTN (hypertension) ([facility] Hypoglycemia Hypothyroidism ([facility]) Obesity with body mass index (BMI) of 30.0 to 39.9 Squamous cell skin cancer Thyroid disease ([facility]) Type 2 diabetes mellitus with other diabetic kidney complication ([facility]) Vitamin D deficiency Past Surgical History: [...] months (around 03/16/2025). documented in this encounter [facility] 09-06-2024 History of Present illness Narrative Images [...] if problems arise. documented in this encounter [facility] 09-05-2024 Miscellaneous Notes [facility] 01/17/24 [facility] 01/01/24 documented in this encounter [facility] 09-05-2024 Telephone encounter Note [facility] 01/17/24 [facility] 01/01/24 [facility] 07-13-2024 History of Present illness Narrative Kylah Roibn is a 78 y.o. female Lorraine Mayer [...] said last GFR around 30 with her outside event sales specialist. Interim History: 03/2023 Follow-up visit on [...] she states GFR is 30, per her outside event sales specialist. Interim History: 08/24 Followup visit on [...] reading of her . Lab done in [facility] BUN 28/creatinine 1.43, GFR 36, total [...] MG capsule 1 capsule, Every 12 hours jkqmjlljpnxu-tvon-dlybfcqz-folic acid (Centrum) chewable tablet 1 tablet, Oral, [...] Basal cell carcinoma CAD (coronary artery disease) ([facility]) Chronic kidney disease, stage III (moderate) (HCC) ([facility]) Current use of insulin ([facility] Diabetes ([facility]) Frozen shoulder GERD (gastroesophageal reflux disease) Gout 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[facility]) HLD (hyperlipidemia) ([facility] HTN (hypertension) ([facility]) Hypoglycemia Hypothyroidism ([facility]) Obesity with body mass index (BMI) of 30.0 to 39.9 Squamous cell skin cancer Thyroid disease ([facility]) Type 2 diabetes mellitus with other diabetic kidney complication ([facility]) Vitamin D deficiency Past Surgical History: [...] dietary consultation Chronic renal disease, stage IV ([facility]) Follow up in about 4 months (around 11/13/2024). documented in this encounter [facility] 06-25-2024 History of Present illness Narrative Images [...] the callous site. documented in this encounter [facility] 06-04-2024 History of Present illness Narrative Follow up Diagnosis: Rash unspecified Location: hands Procedure performed: Punch biopsy Status: not as painful Date of procedure: 05/25/2024 Current treatment: Betamethasone Dipro 0.05% cream, here for biopsy results Suture Removal Patient here for suture removal: No complaints of redness, drainage or swelling at site, compliant with wound care. Location: Right Hypothenar Dillon Procedure Performed: Punch biopsy Date of Procedure: 05/25/2024 Medications: Betamethasone All pertinent medical history, medications, and allergies were reviewed. General Exam: alert , oriented to person, place, and time , normal affect, well appearing Unaccompanied A focused exam completed based on patient reported problems, see below: 1. Granuloma annulare Left Hand - Anterior, Right Hand - Anterior [place] indurated annular plaques. Flaring today, but improved [...] any new/changing lesions documented in this encounter [facility] 05-25-2024 History of Present illness Narrative Images [...] and other nonspecific skin eruption Right Hypothenar Dillon [place] plaques Biopsy today, see procedure note. Start Betamethasone cream bid when flared, hold when clear. Lesion biopsy - Right Hypothenar Dillon Type of biopsy: punch Informed consent: discussed [...] pending biopsy results documented in this encounter [facility] 05-11-2024 Note [facility] Cardiology Clinic Note Chief Complaint: Patient here for follow up [facility] discharge back in February 2024. [...] ventricular gram/pressure Indications (more content not included)... [facility] 03-18-2024 Miscellaneous Notes Asad 01/17/24 Mg 07/08/23 -per 07/09/23 refill encounter Pt needs mg, orders in place. documented in this encounter [facility] 03-18-2024 Telephone encounter Note Asad 01/17/24 Mg 07/08/23 -per 07/09/23 refill encounter Pt needs mg, orders in place. [facility] 02-10-2024 Note [facility] Cardiology Clinic Note Chief Complaint: Patient here to re-establish care. She was recently admitted to [facility] for hypertension. Had CABG since [...] longstanding diabetic. PAST MEDICAL HISTORY: Diabetes mellitus ([facility]) Hypertensive urgency Arthritis Dyspnea Chest pain Unstable angina ([facility]) Obesity (BMI 30-39.9) H/O four vessel coronary artery bypass graft Paroxysmal atrial fibrillation ([facility]) 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 Obesity (BMI 30-39.9) [...] office She is to follow-up with her outside event sales specialist given her chronic kidney disease Return to clinic in 3 months or sooner should problems arise Carlie Catherine MD (more content not included)... [facility] 01-17-2024 History of Present illness Narrative Kylah Lobito Date of visit: 01/17/2024 Date of : 1945 Age: 78 y.o. Patient Active Problem List Diagnosis Diabetes mellitus ([facility]) Hypertensive urgency Arthritis Dyspnea Other forms of angina pectoris ([facility]) Unstable angina ([facility]) Obesity (BMI 30-39.9) H/O four vessel coronary artery bypass graft Paroxysmal atrial fibrillation ([facility]) 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 Obesity (BMI 30-39.9) Essential hypertension Other hyperlipidemia Class 1 obesity in adult Stage 4 chronic kidney disease ([facility]) 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 She was recently hospitalized at [facility] for poorly controlled blood pressure. Her blood [...] pain Chronic kidney disease COVID-19 Diabetes mellitus ([facility]) Dyspnea Edema GERD (gastroesophageal reflux disease) Gout Hyperlipidemia Hypertensive urgency Hypothyroidism Lower back pain Mitral regurgitation Osteopenia Ventricular hypertrophy No data recorded No data recorded No data recorded Past Surgical History: Procedure Laterality Date CARDIAC CATHETERIZATION CATARACT EXTRACTION, BILATERAL CHOLECYSTECTOMY COLONOSCOPY Coronary angiogram and left ventricular gram/pressure N/A 12/28/2020 Performed by Kassie Nicole MD at [facility] CARDIAC CATH LABS CORONARY ARTERY BYPASS GRAFT X 4 with OCASIO and SVG x3 / EVH LEFT upper and lower AND RIGHT upper LEG / LUCAS N/A 12/29/2020 Performed by Herrera De Paz MD at [facility] D&C FIRST TRIMESTER / TX INCOMPLETE [...] min Stress: No Stress Concern Present (12/28/2020) [place] [employer] - Occupational Stress Questionnaire Feeling of Stress : Not at all Social Connections: Moderately Integrated (12/28/2020) Social Connection and Isolation Panel [NHANES] Frequency of Communication with Friends and Family: More than three times a week Frequency of Social Gatherings with Friends and Family: More than three times a week Attends [employer] Services: More than 4 times per year [...] tablet Reorder IMPRESSIONS/PLAN 1. Paroxysmal atrial fibrillation ([facility]) - POCT EKG - carvediloL (COREG) 25 mg tablet; Take 2 tablets (50 mg total) by mouth in the morning and 2 tablets (50 mg total) before bedtime. Dispense: 180 tablet; Refill: 3 2. Stage 4 chronic kidney disease ([facility]) - Basic Metabolic Panel; Future 3. 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 Other forms of angina pectoris ([facility]) 5. Essential hypertension - Basic Metabolic Panel; Future 6. 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 7. H/O four [...] BNP. 2. Atherosclerosis of coronary arteries of jena heart without angina pectoris. Patient has had [...] RUBI MD Referring Physician: Dhruv Rubi MD [address] [place] [address] documented in this encounter [facility] 01-16-2024 Miscellaneous Notes Called patient to remind them to bring their most current copy of their medication list with them to their appt. Patient verbalizes understanding. documented in this encounter [facility] 01-16-2024 Telephone encounter Note Called patient to remind them to bring their most current copy of their medication list with them to their appt. Patient verbalizes understanding. [facility] 11-18-2023 Evaluation note Encounter Date Diagnosis [...] potassium improved with dietary restriction and Lasix. [facility] 01-29-2024 Evaluation note* Encounter Date Diagnosis Assessment Notes Treatment Notes Treatment Clinical Notes Oct, Anemia of renal disease (ICD-10 - D63.1) Oct, CKD (chronic kidney disease) stage 4, GFR 15-29 ml/min (ICD-10 - N18.4) [facility] 01-09-2024 Evaluation note* Encounter Date Diagnosis [...] potassium improved with dietary restriction and Lasix. [facility] 12-04-2023 Evaluation note* Encounter Date Diagnosis [...] 4, GFR 15-29 ml/min (ICD-10 - N18.4) [facility] 11-21-2023 Evaluation note* Encounter Date Diagnosis Assessment Notes Treatment Notes Treatment Clinical Notes Aug, Anemia of renal disease (ICD-10 - D63.1) Aug, CKD (chronic kidney disease) stage 4, GFR 15-29 ml/min (ICD-10 - N18.4) [facility] 11-09-2023 Evaluation note* Encounter Date Diagnosis [...] of kidney mass hydronephrosis or kidney stones. [facility] 10-26-2023 Evaluation note* Encounter Date Diagnosis [...] potassium improved with dietary restriction and Lasix. [facility] 09-18-2023 Evaluation note* Encounter Date Diagnosis [...] potassium improved with dietary restriction and Lasix. [facility] 08-31-2023 Evaluation note* Encounter Date Diagnosis [...] potassium improved with dietary restriction and Lasix. [facility] 07-25-2023 Evaluation note* Encounter Date Diagnosis [...] to normal with dietary restriction and Lasix. [facility] 07-01-2023 Evaluation note* Encounter Date Diagnosis Assessment Notes Treatment Notes Treatment Clinical Notes Apr, CKD (chronic kidney disease) stage 4, GFR 15-29 ml/min (ICD-10 - N18.4) Apr, Anemia of renal disease (ICD-10 - D63.1) [facility] 06-27-2023 Evaluation note* Encounter Date Diagnosis [...] to normal with dietary restriction and Lasix. [facility] 06-01-2023 Evaluation note* Encounter Date Diagnosis [...] potassium diet and provide information about it. [facility] 03-16-2023 Evaluation note* Encounter Date Diagnosis [...] to Continue Vit D 5000 units daily [facility] 01-30-2023 Evaluation note* Encounter Date Diagnosis [...] to Continue Vit D 5000 units daily [facility] 12-22-2022 Evaluation note* Encounter Date Diagnosis [...] to Continue Vit D 5000 units daily [facility] 11-16-2022 Evaluation note* Encounter Date Diagnosis [...] to Continue Vit D 5000 units daily [facility] 08-04-2022 Evaluation note* Encounter Date Diagnosis Assessment Notes Treatment Notes Treatment Clinical Notes May, Hypertensive chronic kidney disease with stage 1 through stage 4 chronic kidney disease, or unspecified chronic kidney disease (ICD-10 - I12.9) [facility] 08-02-2022 Evaluation note* Encounter Date Diagnosis [...] to Continue Vit D 5000 units daily [facility] 07-19-2022 Evaluation note* Encounter Date Diagnosis Assessment Notes Treatment Notes Treatment Clinical Notes Apr, Hypertensive chronic kidney disease with stage 1 through stage 4 chronic kidney disease, or unspecified chronic kidney disease (ICD-10 - I12.9) [facility] 04-14-2022 Evaluation note* Encounter Date Diagnosis [...] to take Vit D 1000 units daily [facility] Other Evaluation noteNo InformationNort [facility] Other Evaluation note* Diagnosis Type 2 diabetes mellitus with hyperglycemia, with long-term 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 ([facility])- Primary Vitamin D deficiency Microalbuminuria Proteinuria Hyperlipemia, mixed ([facility]) Mixed hyperlipidemia Primary hypertension ([facility]) Unspecified essential hypertension Insulin long-term use ([facility]) Encounter for long-term (current) use of insulin 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[facility]) Chronic lymphocytic thyroiditis Encounter for dietary consultation Chronic renal disease, stage IV ([facility]) Chronic kidney disease, Stage IV (severe) documented in this encounter [facility]* Diagnosis Rash and other nonspecific skin eruption- Primary [facility]* Diagnosis Granuloma annulare- Primary Other specified erythematous condition documented [facility]* Diagnosis Onychomycosis- Primary Dermatophytosis of nail Pain in both feet Corns and callosities Type 2 diabetes mellitus without complication, with long-term 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 ([facility]) documented [facility]* Diagnosis Onychomycosis- Primary Dermatophytosis of nail Pain in both feet Corns and callosities Type 2 diabetes mellitus without complication, with long-term 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 ([facility]) documented [facility]* Diagnosis Type 2 diabetes mellitus with hyperglycemia, with long-term 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 ([facility])- Primary Vitamin D deficiency Microalbuminuria Proteinuria Hyperlipemia, mixed ([facility]) Mixed hyperlipidemia Primary hypertension ([facility]) Unspecified essential hypertension Insulin long-term use ([facility]) Encounter for long-term (current) use of insulin 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[facility]) Chronic lymphocytic thyroiditis Encounter for dietary consultation Chronic renal disease, stage IV (CMS/HCC) Chronic kidney disease, Stage IV (severe) [facility] 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 Hypertensive urgency Shortness of breath Paroxysmal atrial fibrillation ([facility]) Atrial fibrillation Localized edema Edema documented in this encounter [facility] Diagnosis Paroxysmal atrial fibrillation ([facility] Primary Atrial fibrillation Stage 4 chronic kidney disease ([facility]) 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 ([facility]) Other forms of angina pectoris ([facility]) Essential hypertension Unspecified essential hypertension 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 Hypertensive urgency Shortness of breath Localized edema Edema documented in this encounter [facility]* Diagnosis Medication management- Primary documented in this encounter [facility]* Diagnosis Medication management- Primary 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 Hypertensive urgency Shortness of breath Paroxysmal atrial fibrillation ([facility]) Atrial fibrillation Localized edema Edema documented in this encounter [facility] System[facility] general Narrative - Reported* Type [...] NOSE 10/2019 Surgical History QUAD BYPASS AT [facility] [place] 01/01/2021 Hospitalization History ELEVATED BLOOD PRESSURE Hospitalization History SEE ABOVE Hospitalization History COVID 09/2020 [employer] Other Hismsio general Narrative - Reported* Type Description Date [...] History SEE ABOVE Hospitalization History COVID 09/2020 [employer] Other history general Narrative - Reported* Type [...] History SEE ABOVE Hospitalization History COVID 09/2020 [employer] Other history [place] Other history general Narrative - Reported* Type [...] NOSE 10/2019 Surgical History QUAD BYPASS AT [facility] [place] 01/01/2021 Hospitalization History ELEVATED BLOOD PRESSURE Hospitalization History SEE ABOVE Hospitalization History COVID 09/2020 [employer] Other InstructionsNot on filedocumented in this encounter [facility] filedocumented in this [facility] filedocumented in this [facility] filedocumented in this encounter [facility] on filedocumented in this encounter [facility] Summary Purpose Family History No [...] 04/02/2018 [facility] DATE CREATED AUTHOR AUTHOR'S ORGANIZ ATION 01/27/2023 [facility] DATE CREATED AUTHOR AUTHOR'S ORGANIZ ATION 01/18/2024 [facility] DATE CREATED AUTHOR AUTHOR'S ORGANIZ ATION 11/17/2024 [facility] EPIC DATE CREATED AUTHOR AUTHOR'S ORGANIZ ATION 11/29/2024 [facility] REASON FOR VISIT (unrecogniz ed section and content) Reason Comments Diabetes Mellitus Follow-up Reason Comments Skin Problem Reason Comments Suture / Staple Removal Reason Comments Diabetes Thyroid Problem Follow-up Reason Comments Med Refill Reason Comments Hospital Follow-up [facility] HTN AND 1 MONTH Hypertension Atrial Fibrillation Shortness of Breath Care Teams (unrecognized sec tion and content) International Manager Relationship Specialty Start Date End Date Dhruv Rubi MD [address] [place] [address] PCP - General Family Medicine 10/22/23 International Manager Relationship Specialty Start Date End Date Dhruv Rubi MD [address] [place] [place] [address] PCP - General Family Medicine 10/22/23 International Manager Relationship Specialty Start Date End Date Dhruv Rubi MD [address] [place] [facility] [place] [facility] [place] [address] PCP - General Family Medicine 10/22/23 International Manager Relationship Specialty Start Date End Date Dhruv Rubi MD [address] [facility] [place] [facility] [place] [address] PCP - General Family Medicine 10/22/23 International Manager Relationship Specialty Start Date End Date Dhruv Rubi MD [address] [place] [facility] [place] [facility] [place] [address] PCP - General Family Medicine 10/22/23 International Manager Relationship Specialty Start Date End Date Dhruv Rubi MD [address] [place] [facility] [place] [facility] [place] [address] PCP - General Family Medicine 10/22/23 International Manager Relationship Specialty Start Date End Date Dhruv Rubi MD [address] [place] [facility] [place] [facility] [place] [address] PCP - General Family Medicine 10/22/23 International Manager Relationship Specialty Start Date End Date Dhruv Rubi MD [address] [place] [facility] [place] [facility] [place] [address] PCP - General Family Medicine 10/22/23 International Manager Relationship Specialty Start Date End Date Dhruv Rubi MD [address] [place] [address] PCP - General Family Medicine 10/22/23 International Manager Relationship Specialty Start Date End Date Dhruv Rubi MD [address] [place] [address] PCP - General Family Medicine 10/20/20 International Manager Relationship Specialty Start Date End Date Dhruv Rubi MD [address] [place] [phone] PCP - General Family Medicine 10/20/20 International Manager Relationship Specialty Start Date End Date Dhruv Rubi MD [address] [place] [phone] PCP - General Family Medicine 10/20/20 International Manager Relationship Specialty Start Date End Date Dhruv Rubi MD [address] [place] [phone] PCP - General Family Medicine 10/20/20 International Manager Relationship Specialty Start Date End Date Dhruv Rubi MD PCP - General Family Medicine 10/20/20 International Manager Relationship Specialty Start Date End Date Dhruv Rubi MD PCP - General Family Medicine 10/20/20 International Manager Relationship Specialty Start Date End Date Dhruv Rubi MD PCP - General Family Medicine 10/20/20 International Manager Relationship Specialty Start Date End Date [...] BE BASED ON THE PRIMARY CLINICAL RECORDS. [facility]. provides no warranty or guarantee of the accuracy or completeness of information in this document.
--- NOTE | 2024-12-31 09:40 | XR_ITS ---
[address] [address] Patient Name: KYLAH BERGER MRN: [id number] date: 1945 Sex: F Assigned Patient Location: LAB Current Patient Location: LAB Accession/Order Number: [id number] Exam Date: 12/31/2024 12:38 Report Date: 12/31/2024 12:41 At the request of: DHRUV GUTIERRES MD Procedure: XR chest 2V Plain film chest Single view HISTORY: Shortness of breath for one day COMPARISON: 09/20/2024 FINDINGS: SUPPORT DEVICES: None POSTSURGICAL CHANGES: Sternotomy with mediastinal clips stable. HEART: Stable PULMONARY SANDIP: Within normal limits MEDIASTINUM: Unremarkable LUNGS AND PLEURA: No acute lung process, pleural effusion or pneumothorax identified. BONY STRUCTURES: Thoracic spondylosis/hyperostosis ADDITIONAL FINDINGS None XR/XR chest 2V IMPRESSION: No acute process. Impression dictated by: Mariusz Hernandez M.D.12/31/2024 12:41 PM Dictation Location: [place] [address] Electronically authenticated by: [id number] Y Date: 12/31/2024 12:41
[2024-12-31 09:51] LABS: Basophils Percent Auto 0.6 % (0.2-2.0); Eosinophils Absolute Auto 0.1 10^3/uL (0.0-0.7); Eosinophils Percent Auto 1.9 % (0.9-7.0); Hematocrit 30.6 % (36.0-48.0); Hemoglobin 10.2 g/dL (12.0-16.0); Immature Granulocytes Abs Auto 0.03 10^3/uL (0.00-0.03); Immature Granulocytes Pct Auto 0.4 % (0.0-0.5); Lymphocytes Absolute Auto 1.7 10^3/uL (1.2-3.8); Mean Corpuscular HGB Conc 33.3 g/dL (29.9-35.2); Mean Corpuscular Hemoglobin 30.7 pg (26.7-34.0); Mean Corpuscular Volume 92.2 fL (81.0-99.0); Mean Platelet Volume 9.5 fL (9.5-13.5); Monocytes Absolute Auto 0.5 10^3/uL (0.3-0.8); Monocytes Percent Auto 7.5 % (1.7-12.0); Neutrophils Absolute Auto 4.8 10^3/uL (1.4-6.5); Neutrophils Percent Auto 66.6 % (43.0-75.0); Platelet Count 203 10^3/uL (150-450); Red Blood Count 3.32 10^6/uL (4.20-5.40); Red Cell Distribution Width 15.3 % (11.0-15.0); White Blood Count 7.2 10^3/uL (4.0-11.0)
[2024-12-31 11:03] LABS: Alanine Aminotransferase 52 U/L (14-59); Albumin Globulin Ratio 0.9; Albumin Level 3.5 g/dL (3.4-5.0); Alkaline Phosphatase 101 U/L (46-116); Anion Gap 15.9; Aspartate Amino Transferase 34 U/L (15-37); BUN Creatinine Ratio 17.7; Bilirubin Total 0.6 mg/dL (0.2-1.0); Calcium 9.1 mg/dL (8.5-10.1); Carbon Dioxide 24.6 mmol/L (21.0-32.0); Chloride 102 mmol/L (98-107); Estimated GFR (African America 29 (>=60 mL/min/1.73m^2); Estimated GFR (Non-African Ame 24 (>=60 mL/min/1.73m^2); Globulin 3.8 g/dL; Glucose 266 mg/dL (74-106); Potassium 4.5 mmol/L (3.5-5.1); Sodium 138 mmol/L (136-145); Total Protein 7.3 g/dL (6.4-8.2); Troponin I High Sensitivity 11.5 pg/mL (4.0-51.3)
== END 2024-12-31 09:11 | disposition home or self-care (01) ==
LOC: LAB 09:11
PROVIDERS: PCP Family Medicine; Visit Provider Family Medicine
DX: R07.9 Chest pain, unspecified (principal); I25.10 Atherosclerotic heart disease of native coronary artery without angina pectoris; R06.00 Dyspnea, unspecified; I50.30 Unspecified diastolic (congestive) heart failure; R53.83 Other fatigue; M47.814 Spondylosis without myelopathy or radiculopathy, thoracic region; I11.0 Hypertensive heart disease with heart failure
CPT/HCPCS: 36415; 71046; 80053; 83880; 84484; 85025

== ENCOUNTER 2025-01-05 06:21 | Outpatient (OUT) | payer MEDICARE, SELFPAY ==
--- OUTSIDE RECORDS SUMMARY | 2025-01-05 06:26 | XMS_ITS | CCD ---
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 Name Role Phone PHYSICIAN, DEFAULT Unavailable Unavailable PHYSICIAN, DEFAULT Unavailable Unavailable Doreen, Ron Unavailable Mary Anne Ackerman Unavailable Jana Monson Unavailable FIORELLAY ., DR BATR[employer] Consult[employer] Unavailable HOY ., [...] Unavailable Dhruv Rubi MD Primary Care Provider [phone] LORRAINE MAYER Attending Unavailable PETITTSatnhosh, GREG A Attending Unavailable GA LAI Attending Unavailable PETITTSanthosh GREG A Attending Unavailable GA LAI Attending Unavailable PETITTSanthosh, GREG A Attending Unavailable PETITTSanthosh, GREG A Attending Unavailable PETITTSanthosh, GREG A Attending Unavailable GA LAI Attending Unavailable LORRAINE MAYER F Attending Unavailable LORRAINE MAYER F Referring Unavailable GA LAI Attending Unavailable Dhruv Rubi MD Primary Care Provider [phone] Dhruv Rubi MD Primary Care Provider [phone] ALEJANDRO ORTIZ Attending Unavailable ELTAHAWY, EHAB Attending Unavailable ELTAHAWY, EHAB Attending Unavailable Allergies Allergy Classification Reported Allergen(s) Allergy Type Date of Onset Reaction(s) Facility (20 sources) amLODIPine; Translations: [AMLODIPINE] Drug Allergy 03-28-20 05 Unknown, Rash [facility] Repository (20 sources) Amoxicillin / Clavulanate Drug Allergy 11-23-19 Rash [facility] [employer] Other (20 sources) Contrast media Propensity to adverse reactions Unknown [facility] [employer] Other (2 sources) Doxazosin; Translations: [doxazosin] Drug Allergy Unknown [facility] [employer] Other (20 sources) Sulfamethoxazole / Trimethoprim Drug Allergy 11-23-19 [facility] [employer] Other (20 sources) Doxazosin; Translations: [DOXAZOSIN] Drug Allergy 11-23-19 Unknown [facility] Repository (9 sources) Amoxicillin / Clavulanate; Translations: [Augmentin] Drug Allergy 11-16-19 16 Unknown [facility] Repository (1 source) amLODIPine Drug Allergy 04-25-20 14 [facility] Repository (1 source) Sulfamethoxazole / Trimethoprim Drug Allergy 03-09-20 13 [facility] Repository (2 sources) Sulfamethoxazole / Trimethoprim; Translations: [SULFAMETHOXAZOLE-T RIMETHOPRIM] Drug Allergy 08-04-20 15 [facility] Repository (20 sources) IODINATED CONTRAST MEDIA; Translations: [IODINATED CONTRAST MEDIA] Propensity to adverse reactions to drug (disorder) 11-23-19 Other [facility] Repository (17 sources) AMOXICILLIN-POT CLAVULANATE; Translations: [AMOXICILLIN-POT CLAVULANATE] Propensity to adverse reactions to drug (disorder) 11-23-19 Unknown [facility]ository (15 sources) Amoxicillin Drug Allergy 03-12-20 Unknown [facility] (15 sources) Doxazosin Drug Allergy 03-12-20 Unknown [facility] (16 sources) Sulfamethoxazole; Translations: [SULFAMETHOXAZOLE] Allergy to substance 03-12-20 Unknown [facility] (15 sources) Trimethoprim Drug Allergy 03-12-20 Unknown [facility] Medications Current Medications Medication Drug Class(es) [...] coronary artery bypass graft , Atherosclerosis of hoh coronary artery of hoh heart without angina pectoris , Paroxysmal atrial [...] (LIPITOR) 80 mg tablet Indications: Atherosclerosis of hoh coronary artery of hoh heart without angina pectoris , H/O four vessel coronary artery bypass graft , Hypertensive urgency , Shortness of breath , Paroxysmal atrial fibrillation (CMS-HCC) , Localized edema TAKE 1 TABLET BY MOUTH NIGHTLY 90 tablet 2024 Active Start: 12-27-2022 End: 2024 take 1 tablet by mouth once daily atorvastatin (LIPITOR) 80 mg tablet Indications: Atherosclerosis of hoh coronary artery of hoh heart without angina pectoris , H/O four [...] Active docusate sodium 50 mg / sennosides, fdc 8.6 mg oral tablet (5 sources) take 1 tablet by mouth every twelve hours Sennosides-Docusate Sodium 8.6-50 MG 1 tablet in the evening as needed Orally every 12 hours Active epoetin johnna-epbx 46859 UNT/ML Injectable Solution [Retacrit] (14 sources) Retacrit 86107 U NIT/ML as directed Injection Active ferrous [...] Daily Active take 2 tablets by mo [facility] every twenty-four hours Liothyronine Sodium 5 MCG 2 tablets on a n empty stomach Orally Once a day Active take 2 tablets by mo [facility] every twenty-four hours lisinopril 20 mg oral [...] For Her 50 + - Orally Active wmwdheqlmdvg-etjj-cmgfznjl-f olic acid (Centrum) chewable tablet (15 sources) multivitamin-iro w-yaxtjoxa-dwrnu acid (Centrum) chewable tablet Chew 1 tablet [...] not crush, chew, or split.. Active retacrit 87406 unit/ml solution (5 sources) Retacrit 79688 U NIT/ML as directed Injection Active Sennosides-Docusate [...] angina pectoris; Translations: [Atherosclerotic heart disease of hoh coronary artery without angina pectoris] Onset: 1 [...] [facility] Facility Office Visiton 11-27-2024 Follow-up visit [id number] Kylah Robin 1945 F Date Provider Department Center 11/27/2024 ALEJANDRO ESTEVES [facility] Family History Family history unknown: Yes Level of Service:25993 MD OFFICE/OUTPATIENT ESTABLISHED MOD MDM 30 MIN Normal [facility] Glucose (Bld) [Mass/Vol]Orde red By: Maria Antonia Mo on 11-16-2024 Glucose Blood, POC 220 mg/dL [facility] - Hematology and Cell countson 11-16-2024 HbA1c (Bld) [Mass fraction] 7 % [facility] No Panel InformationOrdered By: Maria Antonia Mo on 11-16-2024 [facility] Glucose (Bld) [Mass/Vol]Orde red By: Maria Antonia Mo on 07-13-2024 Glucose Blood, POC 180 mg/dL [facility] No Panel Informationon 05-25 Type of [...] [facility] Office Visiton 05-11-2024 Follow-up visit [id number] Kylah Robin 1945 F Date Provider Department [facility] No family history on file Level of Service:04527 MD OFFICE/OUTPATIENT ESTABLISHED MOD MDM 30 MIN Normal [facility] Office Visiton 02-10-2024 Follow-up visit [id number] Kylah Robin 1945 Date Provider Department [facility] No family history on file Level of Service:36613 MD OFFICE/OUTPATIENT ESTABLISHED MOD MDM 30 MIN Normal [facility] POCT EKGon 01-17-2024 [facility] HEMOGRAM AND PLATELon 2022 Hematocrit (Bld) [Volume fraction] 28.8 % Critically low 36.0-48.0 [facility] Comment on above: Performed By: #### H H #### [facility] [address] [place] [address] Dr. Ember Teague Hemoglobin (Bld) [Mass/Vol] 9.6 g/dL Critically low 12.0-16.0 [facility] Comment on above: Performed By: #### H H #### [facility] [address] [place] [address] Dr. Ember Teague MCH (RBC) [Entitic mass] 30.7 pg Normal 26.7-34.0 [facility] Comment on above: Performed By: #### H H #### [facility] [address] [place] [address] Dr. Ember Teague MCHC (RBC) [Mass/Vol] 33.3 g/dL Normal 29.9-35.2 [facility] Comment on above: Performed By: #### H H #### [facility] [address] [address] [address] Ember Teague MCV (RBC) [Entitic vol] 92.0 fL Normal 81.0-99.0 [facility] Comment on above: Performed By: #### H H #### [facility] [address] [place] [address] Dr. Ember Teague PLT 214 103/ul Normal 150-450 [facility] Comment on above: Performed By: #### H H #### [facility] [address] [place] [address] Dr. Ember Teague RBC 3.13 106/ul Critically low 4.20-5.[address] [facility] Comment on above: Performed By: #### H H #### [facility] [address] [place] [address] Dr. Ember Teague WBC 7.4 103/ul Normal 4.0-11.0 [facility] Comment on above: Performed By: #### H H #### [facility] [address] [place] [address] Dr. Ember Teague MAGNESIUMon 01-22-2023 Magnesium [Mass/Vol] 1.8 mg/dL Normal 1.8-2.4 [facility] Comment on above: Performed By: #### M G, RENAL #### [facility] [address] [place] [address] Dr. Ember Teague RENAL FUNCTION PANELon 01-22 Albumin [Mass/Vol] 3.6 g/dL Normal 3.4-5.0 [facility] Comment on above: Performed By: #### M G, RENAL #### [facility] [address] [place] [address] Dr. Ember Teague Calcium [Mass/Vol] 9.7 mg/dL Normal 8.5-10.1 [facility] Comment on above: Performed By: #### M G, RENAL #### [facility] [address] [place] [address] Dr. Ember Teague Chloride [Moles/Vol] 105 mmol/L Normal 98-107 [facility] Comment on above: Performed By: #### M G, RENAL #### [facility] [address] [address] [address] Ember Teague CO2 [Moles/Vol] 22.6 mmol/L Normal 21.0-32.0 [facility] Comment on above: Performed By: #### M G, RENAL #### [facility] [address] [address] [address] Ember Teague Creatinine [Mass/Vol] 2.18 mg/dL Critically high 0.55-1.02 [facility] Comment on above: Performed By: #### M G, RENAL #### [facility] [address] [address] [address] Ember Teague EGFR-AF SWAZI 26 mL/min/1.73m2 Critically low >=60 [facility] Comment on above: Performed By: #### M G, RENAL #### [facility] [address] [place] [address] Dr. Ember Teague EGFR-NON AF SWAZI 22 mL/min/1.73m2 Critically low >=60 [facility] Comment on above: Performed By: #### M G, RENAL #### [facility] [address] [address] [address] Ember Teague Glucose [Mass/Vol] 134 mg/dL Critically high 74-106 [facility] Comment on above: Performed By: #### M G, RENAL #### [facility] [address] [place] [address] Dr. Ember Teague Phosphate [Mass/Vol] 4.6 mg/dL Normal 2.6-4.7 [facility] Comment on above: Performed By: #### M G, RENAL #### [facility] [address] [address] [address] Ember Teague Potassium [Moles/Vol] 5.1 mmol/L Normal 3.5-5.1 [facility] Comment on above: Performed By: #### M G, RENAL #### [facility] [address] [address] [address] Ember Teague Sodium [Moles/Vol] 138 mmol/L Normal 136-145 [facility] Comment on above: Performed By: #### M G, RENAL #### [facility] [address] [address] [address] Ember Teague Urea nitrogen [Mass/Vol] 61.0 mg/dL Critically high 7.0-18.0 [facility] Comment on above: Performed By: #### M G, RENAL #### [facility] [id number] Ember Teague MG MAMM SCREEN 3D MAY CADon 12-17-2022 MG MAMM SCREEN 3D MAY CAD Patient: KYLAH ROBIN Exam Date: 12/17/2022 : 1945 Gender:F Ordering : DR DHRUV RUBI . Admission #: [id number] Family : Order #: [id number] CLICK HERE TO VIEW EXAM RADIOLOGY REPORT [...] lung cancer at age 61. LOCATION: [facility] BREAST COMPOSITION: Scattered areas fibroglandular density. FINDINGS: [...] MD on 12/17/2022 at 11:59 Normal [facility] FERRITINon 12-10-2022 Ferritin [Mass/Vol] 681.0 ng/mL Critically high 8.0-252.0 [facility] Comment on above: Performed By: #### P THINT #### [facility] [address] [place] [address] Dr. Ember Teague HEMOGRAM AND PLATELon 2022 Hematocrit (Bld) [Volume fraction] 27.1 % Critically low 36.0-48.0 [facility] Comment on above: Performed By: #### C VDTBH #### [facility] [address] [place] [address] Dr. Ember Teague Hemoglobin (Bld) [Mass/Vol] 9.7 g/dL Critically low 12.0-16.0 [facility] Comment on above: Performed By: #### C VDTBH #### [facility] [address] [place] [address] Dr. Ember Teague MCH (RBC) [Entitic mass] 31.4 pg Normal 26.7-34.0 [facility] Comment on above: Performed By: #### C VDTBH #### [facility] [address] [place] [address] Dr. Ember Teague MCHC (RBC) [Mass/Vol] 35.8 g/dL Critically high 29.9-35.2 [facility] Comment on above: Performed By: #### C VDTBH #### [facility] [address] [place] [address] Dr. Ember Teague MCV (RBC) [Entitic vol] 87.7 fL Normal 81.0-99.0 [facility] Comment on above: Performed By: #### C VDTBH #### [facility] [address] [place] [address] Dr. Ember Teague PLT 218 103/ul Normal 150-450 [facility] Comment on above: Performed By: #### C VDTBH #### [facility] [address] [place] [address] Dr. Ember Teague RBC 3.09 106/ul Critically low 4.20-5.40 [facility] Comment on above: Performed By: #### C VDTBH #### [facility] [address] [place] [address] Dr. Ember Teague WBC 6.6 103/ul Normal 4.0-11.0 [facility] Comment on above: Performed By: #### C VDTBH #### [facility] [address] [address] [address] Ember Teague IRON AND TIBCon 12-10-2022 % SATURATION 30.2 % Normal [facility] Comment on above: Performed By: #### P THINT #### [facility] [address] [address] [address] Ember Teague Iron [Mass/Vol] 84.0 ug/dL Normal 50.0-170.0 [facility] Comment on above: Performed By: #### P THINT #### [facility] [address] [address] [address] Ember Teague TIBC DIRECT 278.0 ug/dL Normal 250.0-450.0 [facility] Comment on above: Performed By: #### P THINT #### [facility] [address] [place] [address] Dr. Ember Teague XR FOOT MAY MIN [...] BENI APARICIO Date: 2022-11-20 14:03 Normal [facility] HEMOGRAM AND PLATELon 2022 Hematocrit (Bld) [Volume fraction] 27.7 % Critically low 36.0-48.0 [facility] Comment on above: Performed By: #### R ENAL #### [facility] [address] [place] [address] Dr. Ember Teague Hemoglobin (Bld) [Mass/Vol] 10.0 g/dL Critically low 12.0-16.0 [facility] Comment on above: Performed By: #### R ENAL #### [facility] [address] [place] [address] Dr. Ember Teague MCH (RBC) [Entitic mass] 31.6 pg Normal 26.7-34.0 [facility] Comment on above: Performed By: #### R ENAL #### [facility] [address] [place] [address] Dr. Ember Teague MCHC (RBC) [Mass/Vol] 36.1 g/dL Critically high 29.9-35.2 [facility] Comment on above: Performed By: #### R ENAL #### [facility] [address] [place] [address] Dr. Ember Teague MCV (RBC) [Entitic vol] 87.7 fL Normal 81.0-99.0 [facility] Comment on above: Performed By: #### R ENAL #### [facility] [address] [place] [address] Dr. Ember Teague PLT 182 103/ul Normal 150-450 [facility] Comment on above: Performed By: #### R ENAL #### [facility] [address] [place] [address] Dr. Ember Teague RBC 3.16 106/ul Critically low 4.20-5.[address] [facility] Comment on above: Performed By: #### R ENAL #### [facility] [address] [place] [address] Dr. Ember Teague WBC 6.8 103/ul Normal 4.0-11.0 [facility] Comment on above: Performed By: #### R ENAL #### [facility] [address] [place] [address] Dr. Ember Teague PROF CHEM 8 (BAS METB)on Anion gap [Moles/Vol] 17.6 mmol/L Normal [facility] Comment on above: Performed By: #### C VDTBH #### [facility] [address] [address] [address] Ember Teague Calcium [Mass/Vol] 9.0 mg/dL Normal 8.5-10.1 [facility] Comment on above: Performed By: #### C VDTBH #### [facility] [address] [address] [address] Ember Teague Chloride [Moles/Vol] 104 mmol/L Normal 98-107 [facility] Comment on above: Performed By: #### C VDTBH #### [facility] [address] [place] [address] Dr. Ember Teague CO2 [Moles/Vol] 22.2 mmol/L Normal 21.0-32.0 [facility] Comment on above: Performed By: #### C VDTBH #### [facility] [address] [place] [address] Dr. Ember Teague Creatinine [Mass/Vol] 2.03 mg/dL Critically high 0.55-1.02 [facility] Comment on above: Performed By: #### C VDTBH #### [facility] [address] [address] [address] Ember Teague EGFR-AF SWAZI 29 mL/min/1.73m2 Critically low >=60 [facility] Comment on above: Performed By: #### C VDTBH #### [facility] [address] [place] [address] Dr. Ember Teague EGFR-NON AF SWAZI 24 mL/min/1.73m2 Critically low >=60 [facility] Comment on above: Performed By: #### C VDTBH #### [facility] [address] [place] [address] Dr. Ember Teague Glucose [Mass/Vol] 154 mg/dL Critically high 74-106 [facility] Comment on above: Performed By: #### C VDTBH #### [facility] [address] [place] [address] Dr. Ember Teague Potassium [Moles/Vol] 4.8 mmol/L Normal 3.5-5.1 [facility] Comment on above: Performed By: #### C VDTBH #### [facility] [address] [address] [address] Ember Teague Sodium [Moles/Vol] 139 mmol/L Normal 136-145 [facility] Comment on above: Performed By: #### C VDTBH #### [facility] [address] [address] [address] Ember Teague Urea nitrogen [Mass/Vol] 43.0 mg/dL Critically high 7.0-18.0 [facility] Comment on above: Performed By: #### C VDTBH #### [facility] [address] [address] [address] Ember Teague Urea nitrogen/Creatinine [Mass ratio] 21.2 mg/mg Normal [facility] Comment on above: Performed By: #### C VDTBH #### [facility] [address] [place] [address] Dr. Ember Teague CULTURE SPUTUMon 10-24-2022 CULTURE SPUTUM Culture Observations: Beta lactamase positive Isolate 1 Haemophilus influenzae Moderate growth of Normal [facility] Comment on above: Performed By: #### R ENAL #### [facility] [address] [address] [address] Ember Teague SPUTUM GRAM STAINon 10-24-19 23 COMMENTS Normal [facility] Comment on above: Performed By: #### R ENAL #### [facility] [address] [place] [address] Dr. Ember Teague DIPHTHEROIDS Normal [facility] Comment on above: Performed By: #### R ENAL #### [facility] [address] [place] [address] Dr. Ember Teague EPITHELIALS >25 Normal [facility] Comment on above: Performed By: #### R ENAL #### [facility] [address] [place] [address] Dr. Ember Teague FUNGAL ELEMENTS Normal [facility] Comment on above: Performed By: #### R ENAL #### [facility] [address] [address] [address] Ember Teague GRAM NEG BACILLI Normal [facility] Comment on above: Performed By: #### R ENAL #### [facility] [address] [address] [address] Ember Teague GRAM NEG DIPPLOCOCCI FEW Normal [facility] Comment on above: Performed By: #### R ENAL #### [facility] [address] [address] [address] Ember Teague GRAM POS BACILLI FEW Normal [facility] Comment on above: Performed By: #### R ENAL #### [facility] [address] [address] [address] Ember Teague GRAM POSITIVE COCCI MANY Normal [facility] Comment on above: Performed By: #### R ENAL #### [facility] [address] [address] [address] Ember Teague WBC (Bld) [#/Vol] 10*3/uL Normal [facility] Comment on above: Performed By: #### R ENAL #### [facility] [address] [address] [address] Ember Teague XR CHEST 2 Von [...] ANGELINA BRISENO Date: 2022-10-24 16:22 Normal [facility] FERRITINon 09-18-2022 Ferritin [Mass/Vol] 612.0 ng/mL Critically high 8.0-252.0 [facility] Comment on above: Performed By: #### F ERR, FETIBC #### [facility] [address] [address] [address] Ember Teague HEMOGRAM AND PLATELon 09-18 Hematocrit (Bld) [Volume fraction] 28.1 % Critically low 36.0-48.0 [facility] Comment on above: Performed By: #### C BC #### [facility] [address] [place] [address] Dr. Ember Teague Hemoglobin (Bld) [Mass/Vol] 9.7 g/dL Critically low 12.0-16.0 [facility] Comment on above: Performed By: #### C BC #### [facility] [address] [place] [address] Dr. Ember Teague MCH (RBC) [Entitic mass] 31.3 pg Normal 26.7-34.0 [facility] Comment on above: Performed By: #### C BC #### [facility] [address] [place] [address] Dr. Ember Teague MCHC (RBC) [Mass/Vol] 34.5 g/dL Normal 29.9-35.2 [facility] Comment on above: Performed By: #### C BC #### [facility] [address] [place] [address] Dr. Ember Teague MCV (RBC) [Entitic vol] 90.6 fL Normal 81.0-99.0 [facility] Comment on above: Performed By: #### C BC #### [facility] [address] [place] [address] Dr. Ember Teague PLT 183 103/ul Normal 150-450 [facility] Comment on above: Performed By: #### C BC #### [facility] [address] [place] [address] Dr. Ember Teague RBC 3.10 106/ul Critically low 4.20-5.40 [facility] Comment on above: Performed By: #### C BC #### [facility] [address] [place] [address] Dr. Ember Teague WBC 7.2 103/ul Normal 4.0-11.0 [facility] Comment on above: Performed By: #### C BC #### [facility] [address] [place] [address] Dr. Ember Teague IRON AND TIBCon 09-18-2022 % SATURATION 36.0 % Normal [facility] Comment on above: Performed By: #### F ERR, FETIBC #### [facility] [address] [place] [address] Dr. Ember Teague Iron [Mass/Vol] 77.0 ug/dL Normal 50.0-170.[address] [facility] Comment on above: Performed By: #### F ERR, FETIBC #### [facility] [address] [place] [address] Dr. Ember Teague TIBC DIRECT 214.0 ug/dL Critically low 250.0-450.0 [facility] Comment on above: Performed By: #### F ERR, FETIBC #### [facility] [address] [place] [address] Dr. Ember Teague RENAL FUNCTION PANELon 09-18 Albumin [Mass/Vol] 3.7 g/dL Normal 3.4-5.0 [facility] Comment on above: Performed By: #### R ENAL #### [facility] [address] [place] [address] Dr. Ember Teague Calcium [Mass/Vol] 9.5 mg/dL Normal 8.5-10.1 [facility] Comment on above: Performed By: #### R ENAL #### [facility] [address] [place] [address] Dr. Ember Teague Chloride [Moles/Vol] 103 mmol/L Normal 98-107 [facility] Comment on above: Performed By: #### R ENAL #### [facility] [address] [place] [address] Dr. Ember Teague CO2 [Moles/Vol] 21.1 mmol/L Normal 21.0-32.0 [facility] Comment on above: Performed By: #### R ENAL #### [facility] [address] [place] [address] Dr. Ember Teague Creatinine [Mass/Vol] 1.85 mg/dL Critically high 0.55-1.02 [facility] Comment on above: Performed By: #### R ENAL #### [facility] [address] [place] [address] Dr. Ember Teague EGFR-AF SWAZI 32 mL/min/1.73m2 Critically low >=60 [facility] Comment on above: Performed By: #### R ENAL #### [facility] [address] [place] [address] Dr. Ember Teague EGFR-NON AF SWAZI 26 mL/min/1.73m2 Critically low >=60 [facility] Comment on above: Performed By: #### R ENAL #### [facility] [address] [address] [address] Ember Teague Glucose [Mass/Vol] 183 mg/dL Critically high 74-106 [facility] Comment on above: Performed By: #### R ENAL #### [facility] [address] [place] [address] Dr. Ember Teague Phosphate [Mass/Vol] 3.7 mg/dL Normal 2.6-4.7 [facility] Comment on above: Performed By: #### R ENAL #### [facility] [address] [address] [address] Ember Teague Potassium [Moles/Vol] 4.9 mmol/L Normal 3.5-5.1 [facility] Comment on above: Performed By: #### R ENAL #### [facility] [address] [place] [address] Dr. Ember Teague Sodium [Moles/Vol] 138 mmol/L Normal 136-145 [facility] Comment on above: Performed By: #### R ENAL #### [facility] [address] [place] [address] Dr. Ember Teague Urea nitrogen [Mass/Vol] 40.0 mg/dL Critically high 7.0-18.0 [facility] Comment on above: Performed By: #### R ENAL #### [facility] [address] [place] [address] Dr. Ember Teague CULTURE URINEon 09-15-2022 CULTURE [...] F Trimethoprim/Sulfam ethoxazole <=20 S F Normal [facility] Comment on above: Performed By: #### R ENAL #### [facility] [address] [place] [address] Dr. Ember Teague BNPon 09-11-2022 Natriuretic peptide B (Bld) [Mass/Vol] 408.0 pg/mL Normal <=1,800.0 [facility] Comment on above: Performed By: #### P THINT #### [facility] [address] [place] [address] Dr. Ember Teague CBC AUTO DIFFon 09-11-2022 BASO # 0.0 103/ul Normal 0.0-0.1 [facility] Comment on above: Performed By: #### C BC #### [facility] [address] [place] [address] Dr. Ember Teague Basophils/100 WBC (Bld) 0.3 % Normal 0.2-2.0 [facility] Comment on above: Performed By: #### C BC #### [facility] [address] [place] [address] Dr. Ember Teague EO # 0.1 103/ul Normal 0.0-0.7 [facility] Comment on above: Performed By: #### C BC #### [facility] [address] [place] [address] Dr. Ember Teague Eosinophils/100 WBC (Bld) 1.9 % Normal 0.9-7.0 [facility] Comment on above: Performed By: #### C BC #### [facility] [address] [place] [address] Dr. Ember Teague Erythrocyte distribution width (RBC) [Ratio] 15.2 % Critically high 11.0-15.0 [facility] Comment on above: Performed By: #### C BC #### [facility] [address] [place] [address] Dr. Ember Teague Hematocrit (Bld) [Volume fraction] 26.6 % Critically low 36.0-48.0 [facility] Comment on above: Performed By: #### C BC #### [facility] [address] [place] [address] Dr. Ember Teague Hemoglobin (Bld) [Mass/Vol] 9.0 g/dL Critically low 12.0-16.0 [facility] Comment on above: Performed By: #### C BC #### [facility] [address] [place] [address] Dr. Ember Teague IG # 0.02 10e3/ul Normal 0.00-0.03 [facility] Comment on above: Performed By: #### C BC #### [facility] [address] [place] [address] Dr. Ember Teague IG % 0.3 % Normal 0.0-0.5 [facility] Comment on above: Performed By: #### C BC #### [facility] [address] [place] [address] Dr. Ember Teague LYMPH # 1.9 103/ul Normal 1.2-3.8 [facility] Comment on above: Performed By: #### C BC #### [facility] [address] [place] [address] Dr. Ember Teague Lymphocytes/100 WBC (Bld) 32.4 % Normal 20.5-60.0 [facility] Comment on above: Performed By: #### C BC #### [facility] [address] [place] [address] Dr. Ember Teague MANUAL DIFF REQ NO Normal [facility] Comment on above: Performed By: #### C BC #### [facility] [address] [place] [address] Dr. Ember Teague MCH (RBC) [Entitic mass] 31.1 pg Normal 26.7-34.0 [facility] Comment on above: Performed By: #### C BC #### [facility] [address] [address] [address] Ember Teague MCHC (RBC) [Mass/Vol] 33.8 g/dL Normal 29.9-35.2 [facility] Comment on above: Performed By: #### C BC #### [facility] [address] [place] [address] Dr. Ember Teague MCV (RBC) [Entitic vol] 92.0 fL Normal 81.0-99.0 [facility] Comment on above: Performed By: #### C BC #### [facility] [address] [place] [address] Dr. Ember Teague MONO # 0.6 103/ul Normal 0.3-0.8 [facility] Comment on above: Performed By: #### C BC #### [facility] [address] [place] [address] Dr. Ember Teague Monocytes/100 WBC (Bld) 10.0 % Normal 1.7-12.0 [facility] Comment on above: Performed By: #### C BC #### [facility] [address] [place] [address] Dr. Ember Teague NEUT # 3.2 103/ul Normal 1.4-6.5 [facility] Comment on above: Performed By: #### C BC #### [facility] [address] [place] [address] Dr. Ember Teague Neutrophils/100 WBC (Bld) 55.1 % Normal 43.0-75.0 [facility] Comment on above: Performed By: #### C BC #### [facility] [address] [place] [address] Dr. Ember Teague Platelet mean volume (Bld) [Entitic vol] 9.4 fL Critically low 9.5-13.5 [facility] Comment on above: Performed By: #### C BC #### [facility] [address] [place] [address] Dr. Ember Teague PLT 196 103/ul Normal 150-450 [facility] Comment on above: Performed By: #### C BC #### [facility] [address] [place] [address] Dr. Ember Teague RBC 2.89 106/ul Critically low 4.20-5.[address] [facility] Comment on above: Performed By: #### C BC #### [facility] [address] [place] [address] Dr. Ember Teague WBC 5.8 103/ul Normal 4.0-11.0 [facility] Comment on above: Performed By: #### C BC #### [facility] [address] [place] [address] Dr. Ember Teague PROF 14(COMP METB)on 022 Albumin [Mass/Vol] 3.7 g/dL Normal 3.4-5.0 [facility] Comment on above: Performed By: #### P THINT #### [facility] [address] [place] [address] Dr. Emebr Teague Albumin/Globulin [Mass ratio] 1.0 {ratio} Normal [facility] Comment on above: Performed By: #### P THINT #### [facility] [address] [place] [address] Dr. Ember Teague ALP [Catalytic activity/Vol] 79 U/L Normal 46-116 [facility] Comment on above: Performed By: #### P THINT #### [facility] [address] [place] [address] Dr. Ember Teague ALT [Catalytic activity/Vol] 24 U/L Normal 14-59 [facility] Comment on above: Performed By: #### P THINT #### [facility] [address] [place] [address] Dr. Ember Teague Anion gap [Moles/Vol] 12.8 mmol/L Normal [facility] Comment on above: Performed By: #### P THINT #### [facility] [address] [place] [address] Dr. Ember Teague AST [Catalytic activity/Vol] 17 U/L Normal 15-37 [facility] Comment on above: Performed By: #### P THINT #### [facility] [address] [place] [address] Dr. Ember Teague Bilirubin [Mass/Vol] 0.5 mg/dL Normal 0.2-1.0 [facility] Comment on above: Performed By: #### P THINT #### [facility] [address] [address] [address] Ember Teague Calcium [Mass/Vol] 9.4 mg/dL Normal 8.5-10.1 [facility] Comment on above: Performed By: #### P THINT #### [facility] [address] [address] [address] Ember Teague Chloride [Moles/Vol] 101 mmol/L Normal 98-107 [facility] Comment on above: Performed By: #### P THINT #### [facility] [address] [place] [address] Dr. Ember Teague CO2 [Moles/Vol] 24.3 mmol/L Normal 21.0-32.0 [facility] Comment on above: Performed By: #### P THINT #### [facility] [address] [place] [address] Dr. Ember Teague Creatinine [Mass/Vol] 2.84 mg/dL Critically high 0.55-1.02 [facility] Comment on above: Performed By: #### P THINT #### [facility] [address] [place] [address] Dr. Ember Teague EGFR-AF SWAZI 20 mL/min/1.73m2 Critically low >=60 [facility] Comment on above: Performed By: #### P THINT #### [facility] [address] [place] [address] Dr. Ember Teague EGFR-NON AF SWAZI 16 mL/min/1.73m2 Critically low >=60 [facility] Comment on above: Performed By: #### P THINT #### [facility] [address] [place] [address] Dr. Ember Teague Globulin (S) [Mass/Vol] 3.7 g/dL Normal [facility] Comment on above: Performed By: #### P THINT #### [facility] [address] [place] [address] Dr. Ember Teague Glucose [Mass/Vol] 174 mg/dL Critically high 74-106 [facility] Comment on above: Performed By: #### P THINT #### [facility] [address] [address] [address] Ember Teague Potassium [Moles/Vol] 5.1 mmol/L Normal 3.5-5.1 [facility] Comment on above: Performed By: #### P THINT #### [facility] [address] [address] [address] Ember Teague Protein [Mass/Vol] 7.4 g/dL Normal 6.4-8.2 [facility] Comment on above: Performed By: #### P THINT #### [facility] [address] [place] [address] Dr. Ember Teague Sodium [Moles/Vol] 133 mmol/L Critically low 136-145 [facility] Comment on above: Performed By: #### P THINT #### [facility] [address] [place] [address] Dr. Ember Teague Urea nitrogen [Mass/Vol] 68.0 mg/dL Critically high 7.0-18.0 [facility] Comment on above: Performed By: #### P THINT #### [facility] [address] [place] [address] Dr. Ember Teague Urea nitrogen/Creatinine [Mass ratio] 23.9 mg/mg Normal [facility] Comment on above: Performed By: #### P THINT #### [facility] [address] [place] [address] Dr. Ember Teague TROPONIN, HIGH SENSITIVITYon 09-11-2022 HSTROP 9.1 pg/mL Normal 4.0-51.3 [facility] Comment on above: Result Comment: CUT- OFF POINTS HAVE BEEN ESTABLISHED BASED ON THE FOURTH UNIVERSAL DEFINITIONS OF MYOCARDIAL INFARCTION. THE UPPER REFERENCE LIMIT (URL) OF TROPONIN, DEFINED THE 99TH PERCENTILE OF cTnI DISTRIBUTION IN A REFERENCE POPULATION, HAS BEEN CONFIRMED THE DECISION THRESHOLD FOR IN DIAGNOSIS. Performed By: #### P THINT #### [facility] [address] [place] [address] Dr. Ember Teague UA RANDOM W/MICROSCOPICon BACTERIA NONE SEEN Normal NONE SEEN [facility] Comment on above: Performed By: #### C VDTBH #### [facility] [address] [place] [address] Dr. Ember Teague Bilirubin Ql (U) Negative Normal NEGATIVE [facility] Comment on above: Performed By: #### C VDTBH #### [facility] [address] [place] [address] Dr. Ember Teague CAST NONE SEEN Normal NONE SEEN [facility] Comment on above: Performed By: #### C VDTBH #### [facility] [address] [place] [address] Dr. Ember Teague Clarity (U) CLEAR Normal CLEAR [facility] Comment on above: Performed By: #### C VDTBH #### [facility] [address] [place] [address] Dr. Ember Teague Color (U) LT. YELLOW Normal YELLOW [facility] Comment on above: Performed By: #### C VDTBH #### [facility] [address] [place] [address] Dr. Ember Teague Crystals LM Nom (Urine sed) NONE SEEN Normal NONE SEEN [facility] Comment on above: Performed By: #### C VDTBH #### [facility] [address] [place] [address] Dr. Ember Teague Epithelial cells LM Ql (Urine sed) FEW Abnormal NONE SEEN /RARE [facility] Comment on above: Performed By: #### C VDTBH #### [facility] [address] [place] [address] Dr. Ember Teague Glucose Ql (U) Negative Normal NEGATIVE [facility] Comment on above: Performed By: #### C VDTBH #### [facility] [address] [place] [address] Dr. Ember Teague Hemoglobin Ql (U) Negative Normal NEGATIVE [facility] Comment on above: Performed By: #### C VDTBH #### [facility] [address] [place] [address] Dr. Ember Teague Ketones Ql (U) Negative Normal NEGATIVE [facility] Comment on above: Performed By: #### C VDTBH #### [facility] [address] [place] [address] Dr. Ember Teague LEUKOCYTES Negative Normal NEGATIVE [facility] Comment on above: Performed By: #### C VDTBH #### [facility] [address] [place] [address] Dr. Ember Teague MUCOUS NONE SEEN Normal NONE SEEN [facility] Comment on above: Performed By: #### C VDTBH #### [facility] [address] [place] [address] Dr. Ember Teague Nitrite Ql (U) Negative Normal NEGATIVE [facility] Comment on above: Performed By: #### C VDTBH #### [facility] [address] [place] [address] Dr. Ember Teague pH (U) 5.5 [pH] Normal 5-9 [facility] Comment on above: Performed By: #### C VDTBH #### [facility] [address] [place] [address] Dr. Ember Teague RBC NONE SEEN Abnormal 0-2 [facility] Comment on above: Performed By: #### C VDTBH #### [facility] [address] [place] [address] Dr. Ember Teague SPEC GRAVITY 1.010 Normal 1.005-<=1.[address] [facility] Comment on above: Performed By: #### C VDTBH #### [facility] [address] [place] [address] Dr. Ember Teague UA PROTEIN Negative Normal NEGATIVE/ TRACE [facility] Comment on above: Performed By: #### C VDTBH #### [facility] [address] [place] [address] Dr. Ember Teague Urobilinogen Qn (U) 0.2 {Esau'U}/dL Normal 0.2 - 1. 0 [facility] Comment on above: Performed By: #### C VDTBH #### [facility] [address] [place] [address] Dr. Ember Teague WBC NONE SEEN Normal NONE SEEN [facility] Comment on above: Performed By: #### C VDTB #### [facility] [address] [place] [address] Dr. Ember Teague CBC AUTO DIFFon 08-13-2022 BASO # 0.0 103/ul Normal 0.0-0.1 [facility] Comment on above: Performed By: #### C BC #### [facility] [address] [place] [address] Dr. Ember Teague Basophils/100 WBC (Bld) 0.3 % Normal 0.2-2.0 [facility] Comment on above: Performed By: #### C BC #### [facility] [address] [place] [address] Dr. Ember Teague EO # 0.2 103/ul Normal 0.0-0.7 [facility] Comment on above: Performed By: #### C BC #### [facility] [address] [place] [address] Dr. Ember Teague Eosinophils/100 WBC (Bld) 3.7 % Normal 0.9-7.0 [facility] Comment on above: Performed By: #### C BC #### [facility] [address] [place] [address] Dr. Ember Teague Erythrocyte distribution width (RBC) [Ratio] 15.0 % Normal 11.0-15.0 [facility] Comment on above: Performed By: #### C BC #### [facility] [address] [place] [address] Dr. Ember Teague Hematocrit (Bld) [Volume fraction] 27.9 % Critically low 36.0-48.0 [facility] Comment on above: Performed By: #### C BC #### [facility] [address] [place] [address] Dr. Ember Teague Hemoglobin (Bld) [Mass/Vol] 9.7 g/dL Critically low 12.0-16.0 [facility] Comment on above: Performed By: #### C BC #### [facility] [address] [place] [address] Dr. Ember Teague IG # 0.01 10e3/ul Normal 0.00-0.03 [facility] Comment on above: Performed By: #### C BC #### [facility] [address] [place] [address] Dr. Ember Teague IG % 0.2 % Normal 0.0-0.5 [facility] Comment on above: Performed By: #### C BC #### [facility] [address] [place] [address] Dr. Ember Teague LYMPH # 1.9 103/ul Normal 1.2-3.8 [facility] Comment on above: Performed By: #### C BC #### [facility] [address] [place] [address] Dr. Ember Teague Lymphocytes/100 WBC (Bld) 32.2 % Normal 20.5-60.0 [facility] Comment on above: Performed By: #### C BC #### [facility] [address] [place] [address] Dr. Ember Teague MANUAL DIFF REQ NO Normal [facility] Comment on above: Performed By: #### C BC #### [facility] [address] [place] [address] Dr. Ember Teague MCH (RBC) [Entitic mass] 31.4 pg Normal 26.7-34.0 [facility] Comment on above: Performed By: #### C BC #### [facility] [address] [place] [address] Dr. Ember Teague MCHC (RBC) [Mass/Vol] 34.8 g/dL Normal 29.9-35.2 [facility] Comment on above: Performed By: #### C BC #### [facility] [address] [place] [address] Dr. Ember Teague MCV (RBC) [Entitic vol] 90.3 fL Normal 81.0-99.0 [facility] Comment on above: Performed By: #### C BC #### [facility] [address] [place] [address] Dr. Ember Teague MONO # 0.6 103/ul Normal 0.3-0.8 [facility] Comment on above: Performed By: #### C BC #### [facility] [address] [place] [address] Dr. Ember Teague Monocytes/100 WBC (Bld) 9.8 % Normal 1.7-12.0 [facility] Comment on above: Performed By: #### C BC #### [facility] [address] [place] [address] Dr. Ember Teague NEUT # 3.2 103/ul Normal 1.4-6.5 [facility] Comment on above: Performed By: #### C BC #### [facility] [address] [place] [address] Dr. Ember Teague Neutrophils/100 WBC (Bld) 53.8 % Normal 43.0-75.0 [facility] Comment on above: Performed By: #### C BC #### [facility] [address] [place] [address] Dr. Ember Teague Platelet mean volume (Bld) [Entitic vol] 10.0 fL Normal 9.5-13.5 [facility] Comment on above: Performed By: #### C BC #### [facility] [address] [place] [address] Dr. Ember Teague PLT 194 103/ul Normal 150-450 [facility] Comment on above: Performed By: #### C BC #### [facility] [address] [place] [address] Dr. Ember Teague RBC 3.09 106/ul Critically low 4.20-5.40 [facility] Comment on above: Performed By: #### C BC #### [facility] [address] [place] [address] Dr. Ember Teague WBC 6.0 103/ul Normal 4.0-11.0 [facility] Comment on above: Performed By: #### C BC #### [facility] [address] [place] [address] Dr. Ember Teague PTH INTACTon 06-26-2022 PTH, Intact 39 pg/mL Normal 15-65 [facility] Comment on above: Performed By: #### P THINT #### [facility] [address] [place] [address] Dr. Ember Teague CBC AUTO DIFFon 06-25-2022 BASO # 0.1 103/ul Normal 0.0-0.1 [facility] Comment on above: Performed By: #### C VDTBH #### [facility] [address] [place] [address] Dr. Ember Teague Basophils/100 WBC (Bld) 0.6 % Normal 0.2-2.0 [facility] Comment on above: Performed By: #### C VDTBH #### [facility] [address] [place] [address] Dr. Ember Teague EO # 0.2 103/ul Normal 0.0-0.7 [facility] Comment on above: Performed By: #### C VDTBH #### [facility] [address] [place] [address] Dr. Ember Teague Eosinophils/100 WBC (Bld) 3.0 % Normal 0.9-7.0 [facility] Comment on above: Performed By: #### C VDTBH #### [facility] [address] [place] [address] Dr. Ember Teague Erythrocyte distribution width (RBC) [Ratio] 14.2 % Normal 11.0-15.0 [facility] Comment on above: Performed By: #### C VDTBH #### [facility] [address] [place] [address] Dr. Ember Teague Hematocrit (Bld) [Volume fraction] 30.9 % Critically low 36.0-48.0 [facility] Comment on above: Performed By: #### C VDTBH #### [facility] [address] [place] [address] Dr. Ember Teague Hemoglobin (Bld) [Mass/Vol] 10.6 g/dL Critically low 12.0-16.0 [facility] Comment on above: Performed By: #### C VDTBH #### [facility] [address] [place] [address] Dr. Ember Teague IG # 0.04 10e3/ul Critically high 0.00-0.03 [facility] Comment on above: Performed By: #### C VDTBH #### [facility] [address] [place] [address] Dr. Ember Teague IG % 0.5 % Normal 0.0-0.5 [facility] Comment on above: Performed By: #### C VDTBH #### [facility] [address] [place] [address] Dr. Ember Teague LYMPH # 2.2 103/ul Normal 1.2-3.8 [facility] Comment on above: Performed By: #### C VDTBH #### [facility] [address] [place] [address] Dr. Ember Teague Lymphocytes/100 WBC (Bld) 27.0 % Normal 20.5-60.0 [facility] Comment on above: Performed By: #### C VDTBH #### [facility] [address] [place] [address] Dr. Ember Teague MANUAL DIFF REQ NO Normal [facility] Comment on above: Performed By: #### C VDTBH #### [facility] [address] [place] [address] Dr. Ember Teague MCH (RBC) [Entitic mass] 31.2 pg Normal 26.7-34.0 [facility] Comment on above: Performed By: #### C VDTBH #### [facility] [address] [place] [address] Dr. Ember Teague MCHC (RBC) [Mass/Vol] 34.3 g/dL Normal 29.9-35.2 [facility] Comment on above: Performed By: #### C VDTBH #### [facility] [address] [place] [address] Dr. Ember Teague MCV (RBC) [Entitic vol] 90.9 fL Normal 81.0-99.0 [facility] Comment on above: Performed By: #### C VDTBH #### [facility] [address] [address] [address] Ember Teague MONO # 0.7 103/ul Normal 0.3-0.8 [facility] Comment on above: Performed By: #### C VDTBH #### [facility] [address] [place] [address] Dr. Ember Teague Monocytes/100 WBC (Bld) 9.2 % Normal 1.7-12.0 [facility] Comment on above: Performed By: #### C VDTBH #### [facility] [address] [place] [address] Dr. Ember Teague NEUT # 4.8 103/ul Normal 1.4-6.5 [facility] Comment on above: Performed By: #### C VDTBH #### [facility] [address] [place] [address] Dr. Ember Teague Neutrophils/100 WBC (Bld) 59.7 % Normal 43.0-75.0 [facility] Comment on above: Performed By: #### C VDTBH #### [facility] [address] [place] [address] Dr. Ember Teague Platelet mean volume (Bld) [Entitic vol] 9.3 fL Critically low 9.5-13.5 [facility] Comment on above: Performed By: #### C VDTBH #### [facility] [address] [place] [address] Dr. Ember Teague PLT 227 103/ul Normal 150-450 [facility] Comment on above: Performed By: #### C VDTBH #### [facility] [address] [place] [address] Dr. Ember Teague RBC 3.40 106/ul Critically low 4.20-5.[address] [facility] Comment on above: Performed By: #### C VDTBH #### [facility] [address] [place] [address] Dr. Ember Teague WBC 8.0 103/ul Normal 4.0-11.0 [facility] Comment on above: Performed By: #### C VDTBH #### [facility] [address] [address] [address] Ember Teague MRI LSPINE WO CONon [...] YANET HUERTA Date: 2022-06-25 08:45 Normal [facility] RENAL FUNCTION PANELon 06-25 Albumin [Mass/Vol] 3.9 g/dL Normal 3.4-5.0 [facility] Comment on above: Performed By: #### P THINT #### [facility] [address] [address] [address] Ember Teague Calcium [Mass/Vol] 9.5 mg/dL Normal 8.5-10.1 [facility] Comment on above: Performed By: #### P THINT #### [facility] [address] [address] [address] Ember Teague Chloride [Moles/Vol] 102 mmol/L Normal 98-107 [facility] Comment on above: Performed By: #### P THINT #### [facility] [address] [address] [address] Ember Teague CO2 [Moles/Vol] 23.8 mmol/L Normal 21.0-32.0 [facility] Comment on above: Performed By: #### P THINT #### [facility] [address] [address] [address] Ember Teague Creatinine [Mass/Vol] 1.75 mg/dL Critically high 0.55-1.02 [facility] Comment on above: Performed By: #### P THINT #### [facility] [address] [address] [address] Ember Teague EGFR-AF SWAZI 34 mL/min/1.73m2 Critically low >=60 [facility] Comment on above: Performed By: #### P THINT #### [facility] [address] [address] [address] Ember Teague EGFR-NON AF SWAZI 28 mL/min/1.73m2 Critically low >=60 [facility] Comment on above: Performed By: #### P THINT #### [facility] [address] [address] [address] Ember Teague Glucose [Mass/Vol] 199 mg/dL Critically high 74-106 [facility] Comment on above: Performed By: #### P THINT #### [facility] [address] [address] [address] Ember Teague Phosphate [Mass/Vol] 4.3 mg/dL Normal 2.6-4.7 [facility] Comment on above: Performed By: #### P THINT #### [facility] [address] [address] [address] Ember Teague Potassium [Moles/Vol] 4.9 mmol/L Normal 3.5-5.1 [facility] Comment on above: Performed By: #### P THINT #### [facility] [address] [address] [address] Ember Teague Sodium [Moles/Vol] 135 mmol/L Critically low 136-145 [facility] Comment on above: Performed By: #### P THINT #### [facility] [address] [place] [address] Dr. Ember Teague Urea nitrogen [Mass/Vol] 34.0 mg/dL Critically high 7.0-18.0 [facility] Comment on above: Performed By: #### P THINT #### [facility] [address] [place] [address] Dr. Ember Teague VITAMIN D 25 OHon 06-25-2022 VIT D 25-OH 40.6 ng/mL Normal [facility] Comment on above: Performed By: #### P THINT #### [facility] [address] [place] [address] Dr. Ember Teague VIT D RANGES SEE BELOW Normal [facility] Comment on above: Result Comment: <20 ng/mL Vit D deficient 20 - <30 ng/mL Vit D insufficient 30 - 100 ng/mL Vit D sufficient >100 ng/mL Potential Toxicity Performed By: #### P THINT #### [facility] [address] [place] [address] Dr. Ember Teague [facility]07 SARS-CoV-2 (COVID-19) RNA ALEXX+probe Ql [...] for this test is supported by the [place] of Health and Human Service's (HHS's) declaration [...] By: #### C [facility] #### [facility] [address] [address] [address] LSPINE WO CONon [...] YANET HUERTA Date: 2022-06-01 18:02 Normal [facility] XR LSPINE MIN 4 VIEWSon 05-07 XR [...] by: YANET HUERTA Date: 2022-05-21 15:25 Normal [facility] PTH INTACTon 05-03-2022 PTH, Intact 60 pg/mL Normal 15-65 [facility] Comment on above: Performed By: #### C VDTBH #### [facility] [address] [address] [address] Ember Teague VIT D 25-OH LABCORPon 2021 Vitamin D, 25-Hydroxy 26.1 ng/mL Critically low 30.0-100.0 [facility] Comment on above: Result Comment: Sara min D deficiency has been defined by the [place] of [employer] and an Endocrine Society practice guideline as a level of serum 25-OH vitamin D less than 20 ng/mL (1,2). The Endocrine Society went on to further define vitamin D insufficiency as a level between 21 and 29 ng/mL (2). 1. IOM ([place] of [employer]). 2010. Dietary reference intakes for calcium and D. [place]: The National Academies Press. 2. Sherice MF, Wendy NC, Huan ZHONG, et al. Evaluation, treatment, and prevention of vitamin D deficiency: an Endocrine Society clinical practice guideline. JCEM. 2010; 96(7):1911-30. Performed By: #### R ENAL #### [facility] [address] [address] [address] Ember Teague FERRITINon 05-02-2022 Ferritin [Mass/Vol] 590.0 ng/mL Critically high 8.0-252.0 [facility] Comment on above: Performed By: #### R ENAL #### [facility] [address] [place] [address] Dr. Ember Teague HEMOGRAM AND PLATELon 2021 Hematocrit (Bld) [Volume fraction] 28.4 % Critically low 36.0-48.0 [facility] Comment on above: Performed By: #### C VDTBH #### [facility] [address] [place] [address] Dr. Ember Teague Hemoglobin (Bld) [Mass/Vol] 9.6 g/dL Critically low 12.0-16.0 [facility] Comment on above: Performed By: #### C VDTBH #### [facility] [address] [place] [address] Dr. Ember Teague MCH (RBC) [Entitic mass] 31.0 pg Normal 26.7-34.0 [facility] Comment on above: Performed By: #### C VDTBH #### [facility] [address] [place] [address] Dr. Ember Teague MCHC (RBC) [Mass/Vol] 33.8 g/dL Normal 29.9-35.2 [facility] Comment on above: Performed By: #### C VDTBH #### [facility] [address] [place] [address] Dr. Ember Teague MCV (RBC) [Entitic vol] 91.6 fL Normal 81.0-99.0 [facility] Comment on above: Performed By: #### C VDTBH #### [facility] [address] [place] [address] Dr. Ember Teague PLT 189 103/ul Normal 150-450 [facility] Comment on above: Performed By: #### C VDTBH #### [facility] [address] [place] [address] Dr. Ember Teague RBC 3.10 106/ul Critically low 4.20-5.40 [facility] Comment on above: Performed By: #### C VDTBH #### [facility] [address] [place] [address] Dr. Ember Teague WBC 6.2 103/ul Normal 4.0-11.0 [facility] Comment on above: Performed By: #### C VDTBH #### [facility] [address] [place] [address] Dr. Ember Teague IRON AND TIBCon 05-02-2022 % SATURATION 34.3 % Normal [facility] Comment on above: Performed By: #### R ENAL #### [facility] [address] [place] [address] Dr. Ember Teague Iron [Mass/Vol] 69.0 ug/dL Normal 50.0-170.[address] [facility] Comment on above: Performed By: #### R ENAL #### [facility] [address] [place] [address] Dr. Ember Teague TIBC DIRECT 201.0 ug/dL Critically low 250.0-450.0 [facility] Comment on above: Performed By: #### R ENAL #### [facility] [address] [place] [address] Dr. Ember Teague MAGNESIUMon 05-02-2022 Magnesium [Mass/Vol] 1.7 mg/dL Critically low 1.8-2.4 [facility] Comment on above: Performed By: #### C VDTBH #### [facility] [address] [place] [address] Dr. Ember Teague RENAL FUNCTION PANELon 05-02 Albumin [Mass/Vol] 3.6 g/dL Normal 3.4-5.0 [facility] Comment on above: Performed By: #### C VDTBH #### [facility] [address] [place] [address] Dr. Ember Teague Calcium [Mass/Vol] 9.2 mg/dL Normal 8.5-10.1 [facility] Comment on above: Performed By: #### C VDTBH #### [facility] [address] [place] [address] Dr. Ember Teague Chloride [Moles/Vol] 107 mmol/L Normal 98-107 [facility] Comment on above: Performed By: #### C VDTBH #### [facility] [address] [address] [address] Ember Teague CO2 [Moles/Vol] 21.2 mmol/L Normal 21.0-32.0 [facility] Comment on above: Performed By: #### C VDTBH #### [facility] [address] [address] [address] Ember Teague Creatinine [Mass/Vol] 1.75 mg/dL Critically high 0.55-1.02 [facility] Comment on above: Performed By: #### C VDTBH #### [facility] [address] [address] [address] Ember Teague EGFR-AF SWAZI 34 mL/min/1.73m2 Critically low >=60 [facility] Comment on above: Performed By: #### C VDTBH #### [facility] [address] [place] [address] Dr. Ember Teague EGFR-NON AF SWAZI 28 mL/min/1.73m2 Critically low >=60 [facility] Comment on above: Performed By: #### C VDTBH #### [facility] [address] [address] [address] Ember Teague Glucose [Mass/Vol] 193 mg/dL Critically high 74-106 [facility] Comment on above: Performed By: #### C VDTBH #### [facility] [address] [place] [address] Dr. Ember Teague Phosphate [Mass/Vol] 4.2 mg/dL Normal 2.6-4.7 [facility] Comment on above: Performed By: #### C VDTBH #### [facility] [address] [address] [address] Ember Teague Potassium [Moles/Vol] 5.1 mmol/L Normal 3.5-5.1 [facility] Comment on above: Performed By: #### C VDTBH #### [facility] [address] [address] [address] Ember Teague Sodium [Moles/Vol] 139 mmol/L Normal 136-145 [facility] Comment on above: Performed By: #### C VDTBH #### [facility] [address] [place] [address] Dr. Ember Teague Urea nitrogen [Mass/Vol] 34.0 mg/dL Critically high 7.0-18.0 [facility] Comment on above: Performed By: #### C VDTBH #### [facility] [address] [place] [address] Dr. Ember Teague UA RANDOM W/MICROSCOPICon BACTERIA SMALL Abnormal NONE SEEN [facility] Comment on above: Performed By: #### C VDTBH #### [facility] [address] [place] [address] Dr. Ember Teague Bilirubin Ql (U) Negative Normal NEGATIVE [facility] Comment on above: Performed By: #### C VDTBH #### [facility] [address] [place] [address] Dr. Ember Teague CAST NONE SEEN Normal NONE SEEN [facility] Comment on above: Performed By: #### C VDTBH #### [facility] [address] [place] [address] Dr. Ember Teague Clarity (U) CLEAR Normal CLEAR [facility] Comment on above: Performed By: #### C VDTBH #### [facility] [address] [place] [address] Dr. Ember Teague Color (U) LT. YELLOW Normal YELLOW [facility] Comment on above: Performed By: #### C VDTBH #### [facility] [address] [place] [address] Dr. Ember Teague Crystals LM Nom (Urine sed) NONE SEEN Normal NONE SEEN [facility] Comment on above: Performed By: #### C VDTBH #### [facility] [address] [place] [address] Dr. Ember Teague Epithelial cells LM Ql (Urine sed) MODERATE Abnormal NONE SEEN /RARE [facility] Comment on above: Performed By: #### C VDTBH #### [facility] [address] [place] [address] Dr. Ember Teague Glucose Ql (U) Negative Normal NEGATIVE [facility] Comment on above: Performed By: #### C VDTBH #### [facility] [address] [place] [address] Dr. Ember Teague Hemoglobin Ql (U) Negative Normal NEGATIVE [facility] Comment on above: Performed By: #### C VDTBH #### [facility] [address] [place] [address] Dr. Ember Teague Ketones Ql (U) Negative Normal NEGATIVE [facility] Comment on above: Performed By: #### C VDTBH #### [facility] [address] [place] [address] Dr. Ember Teague LEUKOCYTES TRACE Abnormal NEGATIVE [facility] Comment on above: Performed By: #### C VDTBH #### [facility] [address] [place] [address] Dr. Ember Teague MUCOUS NONE SEEN Normal NONE SEEN [facility] Comment on above: Performed By: #### C VDTBH #### [facility] [address] [place] [address] Dr. Ember Teague Nitrite Ql (U) Negative Normal NEGATIVE [facility] Comment on above: Performed By: #### C VDTBH #### [facility] [address] [place] [address] Dr. Ember Teague pH (U) 5.0 [pH] Normal 5-9 [facility] Comment on above: Performed By: #### C VDTBH #### [facility] [address] [place] [address] Dr. Ember Teague RBC NONE SEEN Abnormal 0-2 [facility] Comment on above: Performed By: #### C VDTBH #### [facility] [address] [place] [address] Dr. Ember Teague SPEC GRAVITY 1.015 Normal 1.005-<=1.[address] [facility] Comment on above: Performed By: #### C VDTBH #### [facility] [address] [place] [address] Dr. Ember Teague UA PROTEIN TRACE Normal NEGATIVE/ TRACE [facility] Comment on above: Performed By: #### C VDTBH #### [facility] [address] [place] [address] Dr. Ember Teague Urobilinogen Qn (U) 0.2 {Esau'U}/dL Normal 0.2 - 1. 0 [facility] Comment on above: Performed By: #### C VDTBH #### [facility] [address] [place] [address] Dr. Ember Teague WBC 0-2 Abnormal NONE SEEN [facility] Comment on above: Performed By: #### C VDTBH #### [facility] [address] [place] [address] Dr. Ember Teague URIC ACID SERUMon 05-02-2022 Urate [Mass/Vol] 4.4 mg/dL Normal 2.6-6.0 [facility] Comment on above: Performed By: #### C #### [facility] [address] [place] [address] Dr. Ember Teague URINE T PROTEIN CREAT RATIOo n 05-02-2022 Protein (U) [Mass/Vol] 33.7 mg/dL Critically high <=12.0 [facility] Comment on above: Performed By: #### C VDTBH #### [facility] [address] [place] [address] Dr. Ember Teague UR PROT CREAT RAT 0.69 Normal [facility] Comment on above: Performed By: #### C VDTBH #### [facility] [address] [place] [address] Dr. Ember Teague URINE CREAT 48.93 mg/dL Normal 20.00-300.00 [facility] Comment on above: Performed By: #### C VDTBH #### [facility] [address] [place] [address] Dr. Ember Teague Vital Signs Date Time Vital Sign Value Performing Clinician Facility 11-16-2024 09:49-0500 Body height 168.9 cm Lorraine Mayer MD Work Phone: [facility] 11-16-2024 09:49-0500 Body mass index (BMI) [Ratio] 30.53 kg/m2 Lorraine Mayer MD Work Phone: [facility] 11-16-2024 09:49-0500 Body weight 87.09 kg Lorraine Mayer MD Work Phone: [facility] 11-16-2024 09:49-0500 Diastolic blood pressure 80 mm[Hg] Lorraine Mayer MD Work Phone: [facility] 11-16-2024 09:49-0500 Heart rate 62 /min Lorraine Mayer MD Work Phone: [facility] 11-16-2024 09:49-0500 Respiratory rate 16 /min Lorraine Mayer MD Work Phone: [facility] 11-16-2024 09:49-0500 SaO2% (BldA) [Mass fraction] 97 % Lorraine Mayer MD Work Phone: [facility] 11-16-2024 09:49-0500 Systolic blood pressure 130 mm[Hg] Lorraine Mayer MD Work Phone: [facility] 01-17-2024 12:56-0400 Body height 168.9 cm Thuan Lucas MD Work Phone: [facility] 01-17-2024 12:56-0400 Body mass index (BMI) [Ratio] 30.05 kg/m2 Thuan Lucas MD Work Phone: [facility] 01-17-2024 12:56-0400 Body weight 85.73 kg Thuan Lucas MD Work Phone: [facility] 01-17-2024 12:56-0400 Diastolic blood pressure 70 mm[Hg] Thuan Lucas MD Work Phone: [facility] 01-17-2024 12:56-0400 Heart rate 60 /min Thuan Lucas MD Work Phone: [facility] 01-17-2024 12:56-0400 SaO2% (BldA) [Mass fraction] 98 % Thuan Lucas MD Work Phone: [employer] 01-17-2024 12:56-0400 Systolic blood pressure 180 mm[Hg] Thuan Lucas MD Work Phone: [facility] 11-18-2023 10:00-0500 Body height 168.91 cm Ron Doreen Other [employer] Other 11-18-2023 10:00-0500 Body mass index (BMI) [Ratio] 29.85 kg/m2 Ron Doreen Other [employer] Other 11-18-2023 10:00-0500 Body temperature 97.3 [degF] Ron Doreen Other [employer] Other 11-18-2023 10:00-0500 Body weight 85.19 kg Ron Doreen Other [employer] Other 11-18-2023 10:00-0500 Diastolic blood pressure 79 mm[Hg] Ron Doreen Other [employer] Other 11-18-2023 10:00-0500 Respiratory rate 18 /min Ron Doreen Other [employer] Other 11-18-2023 10:00-0500 SaO2% (BldA) [Mass fraction] 98 % Ron Doreen Other [employer] Other 11-18-2023 10:00-0500 Systolic blood pressure 149 mm[Hg] Ron Doreen Other [employer] Other 11-04-2023 11:00-0500 Body height 168.91 cm Ron Doreen Other [employer] Other 11-04-2023 11:00-0500 Body mass index (BMI) [Ratio] 30.17 kg/m2 Ron Doreen Other [employer] Other 11-04-2023 11:00-0500 Body temperature 97.6 [degF] Ron Doreen Other [employer] Other 11-04-2023 11:00-0500 Body weight 86.09 kg Ron Doreen Other [employer] Other 11-04-2023 11:00-0500 Diastolic blood pressure 76 mm[Hg] Ron Doreen Other [employer] Other 11-04-2023 11:00-0500 Respiratory rate 18 /min Ron Doreen Other [employer] Other 11-04-2023 11:00-0500 SaO2% (BldA) [Mass fraction] 98 % Ron Doreen Other [employer] Other 11-04-2023 11:00-0500 Systolic blood pressure 153 mm[Hg] Ron Doreen Other [employer] Other 10-15-2023 13:00-0500 Body height 168.91 cm Ron Doreen Other [employer] Other 10-15-2023 13:00-0500 Body mass index (BMI) [Ratio] 29.82 kg/m2 Ron Doreen Other [employer] Other 10-15-2023 13:00-0500 Body temperature 97.5 [degF] Ron Doreen Other [employer] Other 10-15-2023 13:00-0500 Body weight 85.1 kg Ron Doreen Other [employer] Other 10-15-2023 13:00-0500 Diastolic blood pressure 68 mm[Hg] Ron Doreen Other [employer] Other 10-15-2023 13:00-0500 Respiratory rate 18 /min Ron Doreen Other [employer] Other 10-15-2023 13:00-0500 SaO2% (BldA) [Mass fraction] 98 % Ron Doreen Other [employer] Other 10-15-2023 13:00-0500 Systolic blood pressure 113 mm[Hg] Ron Doreen Other [employer] Other 08-27-2023 09:40-0500 Body height 168.91 cm Mary Anne [employer] Other [employer] Other 08-27-2023 09:40-0500 Body mass index (BMI) [Ratio] 30.2 kg/m2 Mary Anne BULXjuniornickie Other [employer] Other 08-27-2023 09:40-0500 Body temperature 96.7 [degF] Mary Anne RedLassos Other [employer] Other 08-27-2023 09:40-0500 Body weight 86.18 kg Mary Anne Galavantier Other [employer] Other 08-27-2023 09:40-0500 Diastolic blood pressure 72 mm[Hg] Mary Anne Mensahs Other [employer] Other 08-27-2023 09:40-0500 Respiratory rate 18 /min Mary Anne Mensahs Other [employer] Other 08-27-2023 09:40-0500 SaO2% (BldA) [Mass fraction] 98 % Mary Anne Mensahs Other [employer] Other 08-27-2023 09:40-0500 Systolic blood pressure 153 mm[Hg] Mary Anne Mensahs Other [employer] Other 08-15-2023 10:20-0500 Body height 168.91 cm Ron Doreen Other [employer] Other 08-15-2023 10:20-0500 Body mass index (BMI) [Ratio] 30.2 kg/m2 Ron Doreen Other [employer] Other 08-15-2023 10:20-0500 Body temperature 97.1 [degF] Ron Doreen Other [employer] Other 08-15-2023 10:20-0500 Body weight 86.18 kg Ron Doreen Other [employer] Other 08-15-2023 10:20-0500 Diastolic blood pressure 79 mm[Hg] Ron Doreen Other [employer] Other 08-15-2023 10:20-0500 Respiratory rate 18 /min Ron Doreen Other [employer] Other 08-15-2023 10:20-0500 SaO2% (BldA) [Mass fraction] 98 % Ron Doreen Other [employer] Other 08-15-2023 10:20-0500 Systolic blood pressure 164 mm[Hg] Ron Doreen Other [employer] Other 08-13-2023 15:40-0500 Body height 168.91 cm Ron Doreen Other [employer] Other 08-13-2023 15:40-0500 Body mass index (BMI) [Ratio] 30.24 kg/m2 Ron Doreen Other [employer] Other 08-13-2023 15:40-0500 Body temperature 97.2 [degF] Ron Doreen Other [employer] Other 08-13-2023 15:40-0500 Body weight 86.27 kg Ron Doreen Other [employer] Other 08-13-2023 15:40-0500 Diastolic blood pressure 79 mm[Hg] Ron Doreen Other [employer] Other 08-13-2023 15:40-0500 Respiratory rate 18 /min Ron Doreen Other [employer] Other 08-13-2023 15:40-0500 SaO2% (BldA) [Mass fraction] 98 % Ron Doreen Other [employer] Other 08-13-2023 15:40-0500 Systolic blood pressure 186 mm[Hg] Ron Doreen Other [employer] Other 08-01-2023 13:00-0400 Body height 168.91 cm Ron Doreen Other [employer] Other 08-01-2023 13:00-0400 Body mass index (BMI) [Ratio] 30.55 kg/m2 Ron Doreen Other [employer] Other 08-01-2023 13:00-0400 Body temperature 97.8 [degF] Ron Doreen Other [employer] Other 08-01-2023 13:00-0400 Body weight 87.18 kg Orn Doreen Other [employer] Other 08-01-2023 13:00-0400 Diastolic blood pressure 72 mm[Hg] Ron Doreen Other [employer] Other 08-01-2023 13:00-0400 Respiratory rate 18 /min Ron Doreen Other [employer] Other 08-01-2023 13:00-0400 SaO2% (BldA) [Mass fraction] 98 % Ron Doreen Other [employer] Other 08-01-2023 13:00-0400 Systolic blood pressure 160 mm[Hg] Ron Doreen Other [employer] Other 06-24-2023 11:40-0400 Body height 168.91 cm Ron Doreen Other [employer] Other 06-24-2023 11:40-0400 Body mass index (BMI) [Ratio] 29.89 kg/m2 Ron Doreen Other [employer] Other 06-24-2023 11:40-0400 Body temperature 97.3 [degF] Ron Doreen Other [employer] Other 06-24-2023 11:40-0400 Body weight 85.28 kg Ron Doreen Other [employer] Other 06-24-2023 11:40-0400 Diastolic blood pressure 75 mm[Hg] Ron Doreen Other [employer] Other 06-24-2023 11:40-0400 Respiratory rate 18 /min Ron Doreen Other [employer] Other 06-24-2023 11:40-0400 SaO2% (BldA) [Mass fraction] 99 % Ron Doreen Other [employer] Other 06-24-2023 11:40-0400 Systolic blood pressure 129 mm[Hg] Ron Doreen Other [employer] Other 06-06-2023 15:20-0400 Body height 168.91 cm Ron Doreen Other [employer] Other 06-06-2023 15:20-0400 Body mass index (BMI) [Ratio] 29.92 kg/m2 Ron Doreen Other [employer] Other 06-06-2023 15:20-0400 Body temperature 96.5 [degF] Ron Doreen Other [employer] Other 06-06-2023 15:20-0400 Body weight 85.37 kg Ron Doreen Other [employer] Other 06-06-2023 15:20-0400 Diastolic blood pressure 49 mm[Hg] Ron Doreen Other [employer] Other 06-06-2023 15:20-0400 Respiratory rate 18 /min Ron Doreen Other [employer] Other 06-06-2023 15:20-0400 SaO2% (BldA) [Mass fraction] 99 % Ron Doreen Other [employer] Other 06-06-2023 15:20-0400 Systolic blood pressure 128 mm[Hg] Ron Doreen Other [employer] Other 04-30-2023 11:40-0400 Body height 168.91 cm Ron Doreen Other [employer] Other 04-30-2023 11:40-0400 Body mass index (BMI) [Ratio] 30.52 kg/m2 Ron Doreen Other [employer] Other 04-30-2023 11:40-0400 Body temperature 96.9 [degF] Ron Doreen Other [employer] Other 04-30-2023 11:40-0400 Body weight 87.09 kg Ron Doreen Other [employer] Other 04-30-2023 11:40-0400 Diastolic blood pressure 80 mm[Hg] Ron Doreen Other [employer] Other 04-30-2023 11:40-0400 Respiratory rate 18 /min Ron Doreen Other [employer] Other 04-30-2023 11:40-0400 SaO2% (BldA) [Mass fraction] 98 % Ron Doreen Other [employer] Other 04-30-2023 11:40-0400 Systolic blood pressure 150 mm[Hg] Ron Doreen Other [employer] Other 04-06-2023 09:00-0400 Body height 168.91 cm Ron Doreen Other [employer] Other 04-06-2023 09:00-0400 Body mass index (BMI) [Ratio] 30.36 kg/m2 Ron Doreen Other [employer] Other 04-06-2023 09:00-0400 Body weight 86.64 kg Ron Doreen Other [employer] Other 04-06-2023 09:00-0400 Diastolic blood pressure 54 mm[Hg] Ron Doreen Other [employer] Other 04-06-2023 09:00-0400 Respiratory rate 18 /min Ron Doreen Other [employer] Other 04-06-2023 09:00-0400 SaO2% (BldA) [Mass fraction] 98 % Ron Doreen Other [employer] Other 04-06-2023 09:00-0400 Systolic blood pressure 144 mm[Hg] Ron Doreen Other [employer] Other 04-02-2023 14:40-0400 Body height 168.91 cm Ron Doreen Other [employer] Other 04-02-2023 14:40-0400 Body mass index (BMI) [Ratio] 30.55 kg/m2 Ron Doreen Other [employer] Other 04-02-2023 14:40-0400 Body temperature 97 [degF] Ron Doreen Other [employer] Other 04-02-2023 14:40-0400 Body weight 87.18 kg Ron Doreen Other [employer] Other 04-02-2023 14:40-0400 Diastolic blood pressure 76 mm[Hg] Ron Doreen Other [employer] Other 04-02-2023 14:40-0400 Respiratory rate 18 /min Ron Doreen Other [employer] Other 04-02-2023 14:40-0400 SaO2% (BldA) [Mass fraction] 98 % Ron Doreen Other [employer] Other 04-02-2023 14:40-0400 Systolic blood pressure 183 mm[Hg] Ron Doreen Other [employer] Other 03-07-2023 09:20-0400 Body height 168.91 cm Ron Odreen Other [employer] Other 03-07-2023 09:20-0400 Body mass index (BMI) [Ratio] 30.52 kg/m2 Ron Doreen Other [employer] Other 03-07-2023 09:20-0400 Body temperature 97.1 [degF] Ron Doreen Other [employer] Other 03-07-2023 09:20-0400 Body weight 87.09 kg Ron Doreen Other [employer] Other 03-07-2023 09:20-0400 Diastolic blood pressure 72 mm[Hg] Ron Doreen Other [employer] Other 03-07-2023 09:20-0400 Respiratory rate 18 /min Ron Doreen Other [employer] Other 03-07-2023 09:20-0400 SaO2% (BldA) [Mass fraction] 97 % Ron Doreen Other [employer] Other 03-07-2023 09:20-0400 Systolic blood pressure 130 mm[Hg] Ron Doreen Other [employer] Other 12-20-2022 13:20-0400 Body height 168.91 cm Ron Doreen Other [employer] Other 12-20-2022 13:20-0400 Body mass index (BMI) [Ratio] 30.68 kg/m2 Ron Doreen Other [employer] Other 12-20-2022 13:20-0400 Body temperature 97.1 [degF] Ron Doreen Other [employer] Other 12-20-2022 13:20-0400 Body weight 87.54 kg Ron Doreen Other [employer] Other 12-20-2022 13:20-0400 Diastolic blood pressure 72 mm[Hg] Ron Doreen Other [employer] Other 12-20-2022 13:20-0400 Respiratory rate 18 /min Ron Doreen Other [employer] Other 12-20-2022 13:20-0400 SaO2% (BldA) [Mass fraction] 99 % Ron Doreen Other [employer] Other 12-20-2022 13:20-0400 Systolic blood pressure 139 mm[Hg] Ron Doreen Other [employer] Other 11-05-2022 14:00-0500 Body height 168.91 cm Ron Doreen Other [employer] Other 11-05-2022 14:00-0500 Body mass index (BMI) [Ratio] 30.59 kg/m2 Ron Doreen Other [employer] Other 11-05-2022 14:00-0500 Body temperature 96.8 [degF] Ron Doreen Other [employer] Other 11-05-2022 14:00-0500 Body weight 87.27 kg Ron Doreen Other [employer] Other 11-05-2022 14:00-0500 Diastolic blood pressure 72 mm[Hg] Ron Doreen Other [employer] Other 11-05-2022 14:00-0500 Respiratory rate 18 /min Ron Doreen Other [employer] Other 11-05-2022 14:00-0500 SaO2% (BldA) [Mass fraction] 98 % Ron Doreen Other [employer] Other 11-05-2022 14:00-0500 Systolic blood pressure 157 mm[Hg] Ron Doreen Other [employer] Other 09-27-2022 16:00-0500 Body height 168.91 cm Varinderreinaldo Iona Other [employer] Other 09-27-2022 16:00-0500 Body mass index (BMI) [Ratio] 30.55 kg/m2 Jana Monson Other [employer] Other 09-27-2022 16:00-0500 Body temperature 96.8 [degF] Jana Monson Other [employer] Other 09-27-2022 16:00-0500 Body weight 87.18 kg Jana Monson Other [employer] Other 09-27-2022 16:00-0500 Diastolic blood pressure 73 mm[Hg] Jana Monson Other [employer] Other 09-27-2022 16:00-0500 Respiratory rate 18 /min Jana Monson Other [employer] Other 09-27-2022 16:00-0500 SaO2% (BldA) [Mass fraction] 98 % Jana Monson Other [employer] Other 09-27-2022 16:00-0500 Systolic blood pressure 159 mm[Hg] Jana Monson Other [employer] Other 08-22-2022 12:00-0500 Body height 168.91 cm Ron Doreen Other [employer] Other 08-22-2022 12:00-0500 Body mass index (BMI) [Ratio] 30.65 kg/m2 Ron Doreen Other [employer] Other 08-22-2022 12:00-0500 Body temperature 96.9 [degF] Ron Doreen Other [employer] Other 08-22-2022 12:00-0500 Body weight 87.45 kg Ron Doreen Other [employer] Other 08-22-2022 12:00-0500 Diastolic blood pressure 75 mm[Hg] Ron Doreen Other [employer] Other 08-22-2022 12:00-0500 Respiratory rate 18 /min Ron Doreen Other [employer] Other 08-22-2022 12:00-0500 SaO2% (BldA) [Mass fraction] 96 % Ron Doreen Other [employer] Other 08-22-2022 12:00-0500 Systolic blood pressure 121 mm[Hg] Ron Doreen Other [employer] Other 05-08-2022 10:20-0400 Body height 168.91 cm Ron Doreen Other [employer] Other 05-08-2022 10:20-0400 Body mass index (BMI) [Ratio] 31.54 kg/m2 Ron Doreen Other [employer] Other 05-08-2022 10:20-0400 Body temperature 97.6 [degF] Ron Doreen Other [employer] Other 05-08-2022 10:20-0400 Body weight 89.99 kg Ron Doreen Other [employer] Other 05-08-2022 10:20-0400 Diastolic blood pressure 68 mm[Hg] Ron Doreen Other [employer] Other 05-08-2022 10:20-0400 Respiratory rate 18 /min Ron Doreen Other [employer] Other 05-08-2022 10:20-0400 SaO2% (BldA) [Mass fraction] 98 % Ron Doreen Other [employer] Other 05-08-2022 10:20-0400 Systolic blood pressure 131 mm[Hg] Ron Doreen Other [employer] Other 01-18-2022 10:20-0400 Body height 168.91 cm Ron Doreen Other [employer] Other 04-14-2022 10:20-0400 Body mass index (BMI) [Ratio] 31 kg/m2 Ron Doreen Other [employer] Other 01-18-2022 10:20-0400 Body temperature 96.4 [degF] Ron Doreen Other [employer] Other 01-18-2022 10:20-0400 Body weight 88.45 kg Ron Doreen Other [employer] Other 01-18-2022 10:20-0400 Diastolic blood pressure 74 mm[Hg] Ron Doreen Other [employer] Other 01-18-2022 10:20-0400 Respiratory rate 18 /min Ron Doreen Other [employer] Other 01-18-2022 10:20-0400 SaO2% (BldA) [Mass fraction] 97 % Ron Doreen Other [employer] Other 01-18-2022 10:20-0400 Systolic blood pressure 170 mm[Hg] Ron Doreen Other [employer] Other Encounters Encounter Date Encounter Type Care Provider Facility Start: 12-21-2024 End: 12-21-2024 Telephone encounter Cary Goldman CMA [facility] Start: 12-12-2024 End: 2024 Refill Cristina Salamanca [employer] Work Phone: [facility] Comment on above: Med Refill Start: 11-27-2024 End: 11-27-2024 ambulatory ALEJANDRO [facility] Start: 11-16-2024 End: 11-16-2024 Parmjit flowsviry Mayer MD Work Phone: [facility] Start: 11-16-2024 End: 11-16-2024 Bamboo flowsheet Lorraine Mayer MD Work Phone: [facility] Start: 11-16-2024 End: 11-16-2024 Office outpatient visit 25 minutes Lorraine Mayer MD Work Phone: [facility] Comment on above: Type 2 diabetes diony itus with hyperglycemia, with long-term 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 ([facility]/HCC) (Primary Dx); Vitamin D deficiency; Microalbuminuria; Hyperlipemia, mixed (CMS/HCC); Primary hypertension (CMS/HCC); Insulin long-term use (CMS/HCC); 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CMS/HCC); Encounter for dietary consultation; Chronic renal disease, stage IV (CMS/HCC) Start: 11-16-2024 End: 11-16-2024 ambulatory LORRAINE MAYER Not Available Start: 09-28-2024 End: 09-28-2024 Bamboo flowsheet Ga Lai DPM Work Phone: [facility] Start: 09-28-2024 End: 09-28-2024 Bamboo flowsheet Ga Lai DPM Work Phone: [facility] Start: 09-28-2024 End: 09-28-2024 Patient encounter procedure Ga Lai DPM Work Phone: [facility] Comment on above: Onychomycosis (Prima ry Dx); Pain in both feet; Corns and callosities; Type 2 diabetes mellitus without complication, with long-term 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 ([facility]/HCC) Start: 09-28-2024 End: 09-28-2024 ambulatory GA LAI Not Available Start: 09-05-2024 End: 09-11-2024 Refill Marie Garcia [employer] Work Phone: [facility] Comment on above: Med Refill Start: 07-13-2024 End: 07-13-2024 Bamboo flowsheet Lorraine Mayer MD Work Phone: [facility] Start: 07-13-2024 End: 07-13-2024 Bamboo flowsheet Lorraine Mayer MD Work Phone: [facility] Start: 07-13-2024 End: 07-13-2024 Office outpatient visit 25 minutes Lorraine Mayer MD Work Phone: [facility] Comment on above: Type 2 diabetes diony itus with hyperglycemia, with long-term 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 ([facility]/HCC) (Primary Dx); Vitamin D deficiency; Microalbuminuria; Hyperlipemia, mixed (CMS/HCC); Primary hypertension (CMS/HCC); Insulin long-term use (CMS/HCC); 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CMS/HCC); Encounter for dietary consultation; Chronic renal disease, stage IV ([facility]/HCC) Start: 07-13-2024 End: 07-13-2024 ambulatory LORRAINE MAYER Not Available Start: 06-25-2024 End: 06-25-2024 Bamboo flowsheet Ga Lai DPM Work Phone: [facility] Start: 06-25-2024 End: 06-25-2024 Bamboo flowsheet Ga Lai DPM Work Phone: [facility] Start: 06-25-2024 End: 06-25-2024 Patient encounter procedure Ga Lai DPM Work Phone: [facility] Comment on above: Onychomycosis (Prima ry Dx); Pain in both feet; Corns and callosities; Type 2 diabetes mellitus without complication, with long-term 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 ([facility]/HCC) Start: 06-25-2024 End: 06-25-2024 ambulatory GA LAI Not Available Start: 06-04-2024 End: 06-04-2024 Bamboo flowsheet Greg Longoria MD Work Phone: [facility] Start: 06-04-2024 End: 06-04-2024 Bamboo [...] [facility] Start: 04-21-2024 End: 04-21-2024 ambulatory GREG COLLADOITTI Not Available Start: 04-16-2024 End: 04-16-2024 ambulatory GA H CHERIE Not Available Start: 03-18-2024 End: 03-23-2024 Refill Marie GALLOWAY Work Phone: [facility] Comment on above: Med Refill Start: 03-16-2024 End: 03-16-2024 ambulatory GREG Huynh PETITTI Not Available Start: 02-10-2024 End: 02-10-2024 ambulatory [facility] Start: 01-17-2024 End: 01-17-2024 ambulatory THUAN LUCAS [facility] Start: 01-17-2024 End: 01-17-2024 Office outpatient visit 15 minutes Sarthak Rueda MD Work Phone: [facility] Comment on above: Paroxysmal atrial fi brillation (CMS-HCC) (Primary Dx); Stage 4 chronic kidney disease (CMS-HCC); 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); Other forms of angina pectoris (CMS-HCC); Essential hypertension; Atherosclerosis of hoh coronary artery of hoh heart without angina pectoris; H/O four vessel coronary artery bypass graft; Hypertensive urgency; Shortness of breath; Localized edema Start: 01-16-2024 End: 01-16-2024 Telephone encounter Cary Goldman CMA [facility] Start: 01-16-2024 End: 01-16-2024 ambulatory GA Moreno CHERIE Not Available Start: 12-21-2023 Refill Luis dominique PA-C [facility] Comment on above: Med Refill Start: 11-28-2023 End: 11-28-2023 ambulatory GREG NAVARROI Not Available Start: 11-18-2023 End: 11-18-2023 ambulatory Ron Doreen Other [employer] Other Start: 11-18-2023 Office outpatient vi sit 15 minutes Ron Doreen [facility] Start: 11-04-2023 (INJECTION) INJECTION Ron Doreen [facility] Start: 11-04-2023 End: 11-04-2023 ambulatory Ron Doreen Other [employer] Other Start: 10-15-2023 End: 10-15-2023 ambulatory Ron Doreen Other [employer] Other Start: 10-15-2023 Office outpatient vi sit 15 minutes Ron Doreen [facility] Start: 10-08-2023 End: 10-08-2023 ambulatory Aziz Bakhous Other [employer] Other Start: 10-08-2023 Telephone encounter Aziz Bakhous [facility] Start: 09-15-2023 End: 09-15-2023 ambulatory Ron Doreen Other [employer] Other Start: 09-15-2023 Telephone encounter Ron Doreen [facility] Start: 09-09-2023 End: 09-09-2023 ambulatory Ron Doreen Other [employer] Other Start: 09-09-2023 Telephone encounter Ron Doreen [facility] Start: 08-27-2023 (INJECTION) INJECTION Aziz Bakhous [facility] Start: 08-27-2023 End: 08-27-2023 ambulatory Aziz Bakhous Other [employer] Other Start: 08-15-2023 (INJECTION) INJECTION Ron Doreen [facility] Start: 08-15-2023 End: 08-15-2023 ambulatory Ron Doreen Other [employer] Other Start: 08-13-2023 (INJECTION) INJECTION Ron Doreen [facility] Start: 08-13-2023 End: 08-13-2023 ambulatory Ron Doreen Other [employer] Other Start: 08-01-2023 End: 08-01-2023 ambulatory Ron Doreen Other [employer] Other Start: 08-01-2023 Office outpatient vi sit 15 minutes Ron Doreen [facility] Start: 06-24-2023 End: 06-24-2023 ambulatory Ron Doreen Other [employer] Other Start: 06-24-2023 Office outpatient vi sit 10 minutes Ron Doreen [facility] Start: 06-06-2023 End: 06-06-2023 ambulatory Ron Doreen Other [employer] Other Start: 06-06-2023 Office outpatient vi sit 15 minutes Ron Doreen [facility] Eliel Start: 04-30-2023 End: 04-30-2023 ambulatory Ron Doreen Other [employer] Other Start: 04-30-2023 Office outpatient vi sit 15 minutes Ron Doreen [facility] Start: 04-06-2023 (INJECTION) INJECTION Ron Doreen [facility] Start: 04-06-2023 End: 04-06-2023 ambulatory Ron Doreen Other [employer] Other Start: 04-06-2023 Telephone encounter Ron Doreen [facility] Start: 04-02-2023 End: 04-02-2023 ambulatory Ron Doreen Other [employer] Other Start: 04-02-2023 Office outpatient vi sit 15 minutes Ron Doreen [facility] Start: 04-02-2023 Telephone encounter Ron Doreen [facility] Start: 03-07-2023 End: 03-07-2023 ambulatory Ron Doreen Other [employer] Other Start: 03-07-2023 Office outpatient vi sit 15 minutes Ron Doreen [facility] Eliel Start: 01-22-2023 End: 01-23-2023 ambulatory RON DOREEN Facility:[facility] Start: 12-20-2022 End: 12-20-2022 ambulatory Ron Doreen Other [employer] Other Start: 12-20-2022 Office outpatient vi sit 15 minutes Ron Doreen [facility] Eliel Start: 12-17-2022 End: 12-18-[address] DHRUV RUBI . Facility:[facility] Start: 12-10-2022 End: 12-11-2022 ambulatory RON DOREEN Facility:[facility] Start: 11-20-2022 End: 11-21-[address] BENI APARICIO Facility:[facility] Start: 11-05-2022 End: 11-05-2022 ambulatory Ron Doreen Other [employer] Other Start: 11-05-2022 Office outpatient vi sit 15 minutes Ron Doreen [facility] Start: 10-29-2022 End: 10-30-[address] JANA MONSON Facility:[facility] Start: 10-24-2022 End: 10-24-[address] LILLIAN ACOSTA . Facility:[facility] Start: 10-24-2022 End: 10-25-[address] DHRUV RUBI . Facility:[facility] Start: 09-27-2022 End: 09-27-2022 ambulatory Jana Monson Other [employer] Other Start: 09-27-2022 Office outpatient vi sit 15 minutes Jana Monson [facility] Start: 09-18-2022 End: 09-19-2022 ambulatory RON DOREEN Facility:[facility] Start: 09-11-2022 End: 09-11-[address] DHRUV RUBI . Facility:[facility] Start: 08-22-2022 End: 08-22-2022 ambulatory Ron Doreen Other [employer] Other Start: 08-22-2022 Office outpatient vi sit 15 minutes Ron Doreen [facility] Start: 08-13-2022 End: 08-14-2022 ambulatory RON DOREEN Facility:[facility] Start: 06-25-2022 End: 06-26-[address] DHRUV RUBI . Facility:[facility] Start: 06-18-2022 End: 06-18-[address] DHRUV RUBI . Facility:[facility] Start: 06-01-2022 End: 06-02-[address] YANET HUERTA Facility:[facility] Start: 05-28-2022 End: 05-28-2022 ambulatory Ron Doreen Other [employer] Other Start: 05-28-2022 Telephone encounter Ron Doreen [facility] Start: 05-21-2022 End: 05-22-[address] DHRUV RUBI . Facility:[facility] Start: 05-16-2022 End: 05-16-2022 ambulatory Ron Doreen Other [employer] Other Start: 05-16-2022 Telephone encounter Ron Doreen [facility] Start: 05-10-2022 End: 05-10-2022 ambulatory Ron Doreen Other [employer] Other Start: 05-10-2022 Telephone encounter Ron Doreen [facility] Start: 05-08-2022 End: 05-08-2022 ambulatory Rno Doreen Other [employer] Other Start: 05-08-2022 Office outpatient vi sit 25 minutes Ron Doreen [facility] Start: 05-02-2022 End: 05-03-2022 ambulatory RON DOREEN Facility:[facility] Start: 04-24-2022 End: 04-24-2022 ambulatory Aziz Bakhous Other [employer] Other Start: 04-24-2022 Telephone encounter Aziz Bakhous [facility] Start: 01-18-2022 End: 01-18-2022 ambulatory Ron Doreen Other [employer] Other Start: 01-18-2022 Office outpatient vi sit [...] coronary artery bypass graft Marck George Lazo [employer] Work Phone: Plan of Treatment Date Care Activity Detail Author Start: 03-16-2025 End: 03-16-2025 Patient encounter procedure 03/16/2025 8:35 AM EDT Office Visit [facility] [address] [place] [address] Greg Longoria MD [address] [place], [place] [id number] [facility] Start: 02-15-2025 End: 02-15-2025 Patient encounter procedure 02/15/2025 9:40 AM EDT Office Visit [facility] [address] [place] [address] Lorraine Mayer MD [address] [place] [address] [facility] Start: 01-16-2025 Adult BMI Screening Adult BMI Screening [facility] Start: 01-16-2025 Tobacco Screening Tobacco Screening [facility] Start: 12-31-2024 End: 12-31-2024 Patient encounter procedure 12/31/2024 10:15 AM EDT Procedure Visit [facility] [address] [place] [address] Ga Lai DPM [address] [place] [address] [facility] Start: 11-16-2024 End: 11-16-2024 Patient encounter procedure [facility] Comment on above: Type 2 diabetes mellitus with hyperglyce constance, with long-term 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 ([facility]) Start: 09-28-2024 End: 09-28-2024 [facility] Comment on above: Arrived Start: 07-13-2024 End: 07-13-2024 Patient encounter procedure [facility] Comment on above: Type 2 diabetes mellitus with hyperglyce constance, with long-term 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 ([facility]) Start: 06-25-2024 End: 06-25-2024 Patient encounter procedure [facility] Comment on above: Arrived Start: 06-07-2024 COVID-19 Vaccine ( season) COVID-19 Vaccine () [facility] Start: 06-07-2024 Influenza vaccination [facility] Start: 06-04-2024 End: 06-04-2024 Patient encounter procedure [facility] Comment on above: Arrived Start: 03-19-2024 Adult BMI Screening Adult BMI Screening [facility] Start: 03-19-2024 Tobacco Screening Tobacco Screening [facility] Start: 02-21-2024 End: 02-21-2024 Patient encounter procedure 02/21/2024 2:00 PM EDT Office Visit [facility] [address] [place] [address] Thuan Lucas MD [address] [place] [address] [facility] Start: 01-24-2024 End: 01-16-2025 Basic metabolic 2000 panel - Serum or Plasma Basic Metabolic Panel Lab Routine Stage 4 chronic kidney disease ([facility]) Essential hypertension Expected: 01/24/2024 (Approximate), Expires: 01/16/2025 [facility] Work Phone: Comment on above: Expected: 01/24/2024 (Approximate), Expi res: 01/16/2025 Start: 01-24-2024 End: 01-24-2024 Clinical Support 01/24/2024 10:30 AM EDT Clinical Support [facility] [address] [place] [id number] [facility] Start: 01-17-2024 End: 01-17-2024 Patient encounter procedure 01/17/2024 1:00 PM EDT Office Visit [facility] [address] [place] [phone] Sarthak Rueda MD [address] [place] [address] Thuan Lucas MD [address] [place] [address] [facility] Start: 06-07-2023 COVID-19 Vaccine ( season) COVID-19 Vaccine ( season) [facility] Start: 06-07-2023 Influenza vaccination Influenza Vaccine [facility] Start: 12-28-2021 Depression Screening Depression Screening [facility] Start: 2009 Fall Risk Screening Fall Risk Screening [facility] Start: 1994 Administration of varicella zoster vaccine Zoster (Shingles) Vaccine (1 of 2) [facility] Start: 12-15-1963 DTaP,Tdap and Td Vaccines (1 - Tdap) DTaP,Tdap and Td Vaccines (1 - Tdap) [facility] Start: 1962 Adult BMI Follow Up Plan Adult BMI Follow Up Plan [facility] Start: 1956 Depression Screening Depression Screening [facility] Start: 1944 Medicare Annual Wellness Visit Medicare Annual Wellness Visit [facility] Dermatopathology exam Dermatopat hology exam Pathology and Cytology Timed Rash and other nonspecific skin eruption Release Upon Ordering for 1 Occurrences starting 05/25/2024 [facility] [employer] Work Phone: Comment on above: Release Upon Ordering for 1 Occurrences starting 05/25/2024 End: 12-12-2025 Lipid panel Lipid panel Lab Routine Medication management 1 Occurrences starting 2024 until 12/12/2025 [facility] Work Phone: Comment on above: 1 Occurrences starting 2024 until 12/12/2025 End: 12-12-2025 Magnesium [Mass/volume] in Serum or Plasma Magnesium Lab Routine Medication management 1 Occurrences starting 2024 until 12/12/2025 [facility] Work Phone: Comment on above: 1 Occurrences starting 2024 until 12/12/2025 Immunizations Immunization Date Immunization Notes Care Provider [facility] 07-10-2022 unknown vaccine or immune globulin Ga Lai DPM Work Phone: [facility] 07-20-2021 unknown vaccine or immune globulin Ga Lai DPM Work Phone: [facility] 07-18-2020 Seasonal trivalent influenza vaccine, adjuvanted, preservative free Luis Kb PA-C Work Phone: [facility] 07-18-2020 influenza virus vacc ine, unspecified formulation Luis Kb PA-C Work Phone: [facility] 07-22-2019 Seasonal trivalent influenza vaccine, adjuvanted, preservative free Luis Kb PA-C Work Phone: [facility] 07-20-2019 influenza, injectabl e, quadrivalent, preservative free Ga Lai DPM Work Phone: [facility] 07-14-2018 Seasonal trivalent influenza vaccine, adjuvanted, preservative free Luis Kb PA-C Work Phone: [facility] 07-15-2017 pneumococcal conjuga te vaccine, 13 valent Luis Kb PA-C Work Phone: [facility] 07-08-2017 influenza, high dose seasonal, preservative-free Luis Kb PA-C Work Phone: [facility] 07-25-2016 influenza, high dose seasonal, preservative-free Luis Kb PA-C Work Phone: [facility] 07-11-2015 influenza, high dose seasonal, preservative-free Luis Kb PA-C Work Phone: [facility] 07-16-2014 influenza, seasonal, injectable Luis Kb PA-C Work Phone: [facility] 07-10-2013 influenza, seasonal, injectable Luis Kb PA-C Work Phone: [facility] 08-08-2012 influenza virus vacc ine, unspecified formulation Luis Kb PA-C Work Phone: [facility] 08-08-2012 pneumococcal polysaccharide vaccine, 23 valent Luis Kb PA-C Work Phone: [facility] 07-11-2011 influenza virus vacc ine, unspecified formulation Luis Kb PA-C Work Phone: [facility] 08-15-2010 influenza virus vacc ine, unspecified formulation Luis Kb PA-C Work Phone: [facility] 07-26-2009 influenza virus vacc ine, unspecified formulation Luis Kb PA-C Work Phone: [facility] 08-04-2008 influenza virus vacc ine, unspecified formulation Luis Kb PA-C Work Phone: [facility] 08-13-2007 influenza virus vacc ine, unspecified formulation Luis Kb PA-C Work Phone: [facility] 08-11-2004 influenza virus vacc ine, unspecified formulation Luis Kb PA-C Work Phone: [facility] 08-09-2003 influenza virus vacc ine, unspecified formulation Luis Quiles PA-C [facility] Phone[facility] 08-09-2003 pneumococcal polysaccharide vaccine, 23 valent Luis Quiles PA-C Work Phone: [facility] Payers Date Payer Category Payer Medicaid [employer] MED[employer]ARE A DVANTAGE [id number] 2021 Medicare [id number] 2021 Medicare HMO [employer] MEDICARE [id number] 1959 Medicare [id number] 2.16.840.1.193714.19 1944 Unknown [id number] 2.16.840.1.751663.3.579.2.593 1944 Unknown [id number] 2.16.840.1.282722.3.579.2.593 1944 Unknown [id number] 2.16.840.1.551206.3.579.2.593 1944 Unknown [id number] 2.16.840.1.481158.3.579.2.593 1944 Unknown [id number] 2.16.840.1.497716.3.579.2.593 1944 Unknown [id number] 2.16.840.1.108853.3.579.2.593 1944 Unknown [id number] 2.16.840.1.652345.3.579.2.593 1944 Unknown [id number] 2.16.840.1.544701.3.579.2.593 1944 Unknown [id number] 2.16.840.1.639004.3.579.2.593 1944 Unknown [id number] 2.16.840.1.782298.3.579.2.593 1944 Unknown [id number] 2.16.840.1.436085.3.579.2.593 1944 Unknown [id number] 2.16.840.1.267546.3.579.2.593 1944 Unknown [id number] 2.16.840.1.139736.3.579.2.593 1944 Unknown [id number] 2.16.840.1.494834.3.579.2.593 1944 Unknown [id number] 2.16.840.1.534034.3.579.2.593 1944 Unknown [id number] 2.16.840.1.179821.3.579.2.593 1944 Unknown [id number] 2.16.840.1.919031.3.579.2.1286 1944 Unknown [id number] 2.16.840.1.016920.3.579.2.1259 1944 Unknown [id number] 2.16.840.1.462786.3.579.2.1259 1944 Unknown [id number] 2.16.840.1.521670.3.579.2.125 1944 Unknown [id number] 2.16.840.1.620930.3.579.2.125 1944 Unknown [id number] 2.16.840.1.603086.3.579.2.9 1944 Unknown [id number] 2.16.840.1.745028.3.579.2.9 1944 Unknown [id number] 2.16.840.1.604047.3.579.2.1258 1944 Unknown [id number] 2.16.840.1.606003.3.579.2.125 1944 Unknown [id number] 2.16.840.1.441513.3.579.2.1258 1944 Unknown [id number] 2.16.840.1.616791.3.579.2.9 1944 Unknown [id number] 2.16.840.1.696260.3.579.2.1259 Unknown Social History Date Type Detail Facility Unknown if ever smoked [facility] [employer] [facility] Start: 12-28-2020 End: 06-25-2024 Sex Assigned At [facility] Start: 03-14-2023 End: 01-17-2024 Tobacco smoking status DCIS Ex-smoker [facility] End: 10-07-1969 History of tobacco use Current smoker [facility] End: 10-07-1969 History of tobacco use Cigarette Smoker [facility] Start: 03-14-2023 End: 01-17-2024 Tobacco use and exposure Smokeless tobacco non-user [facility] Start: 06-25-2024 End: 09-28-2024 Alcoholic beverage intake Not Asked [facility] Start: 12-28-2020 End: 06-25-2024 History of Social function [facility] Start: 10-21-2023 Alcohol Comment caffeine intake: 1-2 cups per day [facility] Start: 1945 Sex assigned at Not on file [facility] Start: 03-19-2023 End: 01-17-2024 Alcoholic beverage intake Ex-drinker (finding) [facility] Do you belong to any clubs or organizations such as orthodoxy groups, unions, fraternal or athletic groups, or school groups? No [facility] Are you now , , , , never or living with a partner? [facility] How hard is it for y ou to pay for the very basics like food, housing, medical care, and heating Not hard at all [facility] Do you feel stress - tense, restless, nervous, or anxious, or unable to sleep at night because your mind is troubled all the time - these days [OSQ] Not at all [facility] Start: 05-21-2017 Sex Female (finding) [facility] Goals Date Patient Goal Desired [...] mailed to pt. documented in this encounter [facility] 12-21-2024 Telephone encounter Note Phoned pt and lm on to call office for any further refills. Letter mailed to pt. [facility] 12-12-2024 Miscellaneous Notes Last OV 4//24 Mg 3/27/24 Mg pended; refill letter mailed documented in this encounter [facility] 12-12-2024 Miscellaneous Notes Last OV 01/17/24 Lipid profile 07/08/23 Lipid panel pended; refill letter mailed documented in this encounter [facility] 12-12-2024 Telephone encounter Note Last OV 4 Mg 3/27/24 Mg pended; refill letter mailed [facility] 12-12-2024 Telephone encounter Note Last OV 01/17/24 Lipid profile 07/08/23 Lipid panel pended; refill letter mailed [facility] 11-27-2024 Note Patient here for 6 m o follow up CAD, hypertension, MR, and diastolic dysfunction. Had echo in Jun 2024. She presented to [facility] ED last week with concerns of elevated BP. She takes clonidine PRN for elevated SBP > 200. Denies chest pain and SOB. Does feel palpitations. She wonders if the clonidine patches would help her. Review of Systems Cardiovascular: Positive for irregular heartbeat and palpitations. Musculoskeletal: Positive for myalgias. All other systems reviewed and are negative. [facility] 11-27-2024 Note SUBJECTIVE Reason for Visit: Kylah [...] for a follow-up after being discharged from [facility] in February 2024. She was admitted [...] Diagnosis Acquired hypothyroidism Anemia Arthritis Atherosclerosis of hoh coronary artery of hoh heart without angina pectoris Combined forms of [...] 0.1 mg, o (more content not included)... [facility] 11-16-2024 History of Present illness Narrative Kylah [...] said last GFR around 30 with her mexican food maker. Interim History: 03/2023 Follow-up visit on 03/12/2023 [...] she states GFR is 30, per her mexican food maker. Interim History: 08/24 Followup visit on 08/25/18 [...] reading of her . Lab done in [facility] BUN 28/creatinine 1.43, GFR 36, total cholesterol [...] MG capsule 1 capsule, Every 12 hours clsrahgyeiru-jwzq-mbawslif-folic acid (Centrum) chewable tablet 1 tablet, Daily [...] Basal cell carcinoma CAD (coronary artery disease) ([facility]) Chronic kidney disease, stage III (moderate) (HCC) ([facility]) Current use of insulin ([facility]) Diabetes (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) HLD (hyperlipidemia) ([facility]) HTN (hypertension) ([facility]) Hypoglycemia Hypothyroidism ([facility]) Obesity with body mass index (BMI) of 30.0 to 39.9 Squamous cell skin cancer Thyroid disease ([facility]) Type 2 diabetes mellitus with other diabetic kidney complication ([facility]) Vitamin D deficiency Past Surgical [...] months (around 03/16/2025). documented in this encounter [facility] 09-06-2024 History of Present illness Narrative Images [...] if problems arise. documented in this encounter [facility] 09-05-2024 Miscellaneous Notes [facility] 01/17/24 [facility] 01/01/24 documented in this encounter [facility] 09-05-2024 Telephone encounter Note [facility] 01/17/24 [facility] 01/01/24 [facility] 07-13-2024 History of Present illness [...] said last GFR around 30 with her mexican food maker. Interim History: 03/2023 Follow-up visit on 03/12/2023 [...] she states GFR is 30, per her mexican food maker. Interim History: 08/24 Followup visit on 08/25/18 [...] reading of her . Lab done in [facility] BUN 28/creatinine 1.43, GFR 36, total cholesterol [...] MG capsule 1 capsule, Every 12 hours poxvidjjmxys-kjwx-jluxaiuk-folic acid (Centrum) chewable tablet 1 tablet, Oral, [...] Basal cell carcinoma CAD (coronary artery disease) ([facility]) Chronic kidney disease, stage III (moderate) (HCC) ([facility]) Current use of insulin ([facility]) Diabetes (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) HLD (hyperlipidemia) ([facility]) HTN (hypertension) ([facility]) Hypoglycemia Hypothyroidism ([facility]) Obesity with body mass index (BMI) of 30.0 to 39.9 Squamous cell skin cancer Thyroid disease ([facility]) Type 2 diabetes mellitus with other diabetic kidney complication ([facility]) Vitamin D deficiency Past Surgical [...] dietary consultation Chronic renal disease, stage IV ([facility]) Follow up in about 4 months (around 11/13/2024). documented in this encounter [facility] 06-25-2024 History of Present illness Narrative Images [...] the callous site. documented in this encounter [facility] 06-04-2024 History of Present illness Narrative Follow up Diagnosis: Rash unspecified Location: hands Procedure performed: Punch biopsy Status: not as painful Date of procedure: 05/25/2024 Current treatment: Betamethasone Dipro 0.05% cream, here for biopsy results Suture Removal Patient here for suture removal: No complaints of redness, drainage or swelling at site, compliant with wound care. Location: Right [place]othenar [place] Procedure Performed: Punch biopsy Date of Procedure: 05/25/2024 Medications: Betamethasone All pertinent medical history, medications, and allergies were reviewed. General Exam: alert , oriented to person, place, and time , normal affect, well appearing Unaccompanied A focused exam completed based on patient reported problems, see below: 1. Granuloma annulare Left Hand - Anterior, Right Hand - Anterior [place] indurated annular plaques. Flaring today, but improved [...] any new/changing lesions documented in this encounter [facility] 05-25-2024 History of Present illness Narrative Images [...] and other nonspecific skin eruption Right [place]othenar [place] Ma[place]omedi plaques Biopsy today, see procedure note. Start Betamethasone cream bid when flared, hold when clear. Lesion biopsy - Right [place]othenar [place] Type of biopsy: punch Informed consent: discussed [...] pending biopsy results documented in this encounter [facility] 05-11-2024 Note [facility] Clinic Note Chief Complaint: Patient here for follow up [facility] discharge back in February 2024. She [...] gram/pressure Indications (more content not included)... [facility] 03-18-2024 Miscellaneous Notes [facility] 01/17/24 Mg 07/08/23 -per 07/09/23 refill encounter Pt needs mg, orders in place. documented in this encounter [facility] 03-18-2024 Telephone encounter Note [facility] 01/17/24 Mg 07/08/23 -per 07/09/23 refill encounter Pt needs mg, orders in place. [facility] 02-10-2024 Note [facility] Cardiology Clinic Note Chief Complaint: Patient here to re-establish care. She was recently admitted to [facility] for hypertension. Had CABG since her [...] diabetic. PAST MEDICAL HISTORY: Diabetes mellitus ([facility]) Hypertensive urgency Arthritis Dyspnea Chest pain Unstable angina ([facility]) Obesity (BMI 30-39.9) H/O four vessel coronary artery bypass graft Paroxysmal atrial fibrillation ([facility]) Atherosclerosis of hoh coronary artery of hoh heart without angina pectoris Obesity (BMI 30-39.9) [...] office She is to follow-up with her mexican food maker given her chronic kidney disease Return to clinic in 3 months or sooner should problems arise Carlie Catherine MD (more content not included)... [facility] 01-17-2024 History of Present illness Narrative Kylah Lobito Date of visit: 01/17/2024 Date of : 1945 Age: 78 y.o. Patient Active Problem List Diagnosis Diabetes mellitus ([facility]) Hypertensive urgency Arthritis Dyspnea Other forms of angina pectoris ([facility]) Unstable angina ([facility]) Obesity (BMI 30-39.9) H/O four vessel coronary artery bypass graft Paroxysmal atrial fibrillation ([facility]) Atherosclerosis of hoh coronary artery of hoh heart without angina pectoris Obesity (BMI 30-39.9) Essential hypertension Other hyperlipidemia Class 1 obesity in adult Stage 4 chronic kidney disease ([facility]) 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 ([facility]) Allergies Allergen Reactions Amlodipine Rash NORVASC Cardura [...] Chief Complaint Patient presents with Hospital Follow-up [facility] HTN AND 1 MONTH Hypertension Atrial Fibrillation Shortness of Breath History of Present Illness Kylah is here for follow-up. She was recently hospitalized at [place] for poorly controlled blood pressure. Her blood [...] pain Chronic kidney disease COVID-19 Diabetes mellitus ([facility]) Dyspnea Edema GERD (gastroesophageal reflux disease) Gout Hyperlipidemia Hypertensive urgency Hypothyroidism Lower back pain Mitral regurgitation Osteopenia Ventricular hypertrophy No data recorded No data recorded No data recorded Past Surgical History: Procedure Laterality Date CARDIAC CATHETERIZATION CATARACT EXTRACTION, BILATERAL CHOLECYSTECTOMY COLONOSCOPY Coronary angiogram and left ventricular gram/pressure N/A 12/28/2020 Performed by Kassie Nicole MD at [facility] CARDIAC CATH LABS CORONARY ARTERY BYPASS GRAFT X 4 with OCASIO and SVG x3 / EVH LEFT upper and lower AND RIGHT upper LEG / LUCAS N/A 12/29/2020 Performed by Herrera De Paz MD at [facility] D&C FIRST TRIMESTER / TX INCOMPLETE [...] min Stress: No Stress Concern Present (12/28/2020) [employer] [place] [facility] [employer] [facility] - Occupational Stress Questionnaire Feeling of Stress : Not at all Social Connections: Moderately Integrated (12/28/2020) Social Connection and Isolation Panel [NHANES] Frequency of Communication with Friends and Family: More than three times a week Frequency of Social Gatherings with Friends and Family: More than three times a week Attends Hoahaoism Services: More than 4 times per year [...] tablet Reorder IMPRESSIONS/PLAN 1. Paroxysmal atrial fibrillation ([facility]) - POCT EKG - carvediloL (COREG) 25 mg tablet; Take 2 tablets (50 mg total) by mouth in the morning and 2 tablets (50 mg total) before bedtime. Dispense: 180 tablet; Refill: 3 2. Stage 4 chronic kidney disease ([facility]) - Basic Metabolic Panel; Future 3. 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 ([facility]) 4. Other forms of angina pectoris ([facility]) 5. Essential hypertension - Basic Metabolic Panel; Future 6. Atherosclerosis of hoh coronary artery of hoh heart without angina pectoris 7. H/O four [...] BNP. 2. Atherosclerosis of coronary arteries of hoh heart without angina pectoris. Patient has had [...] RUBI MD Referring Physician: Dhruv Rubi MD [address] [place] [address] documented in this encounter [facility] 01-16-2024 Miscellaneous Notes Called patient to remind them to bring their most current copy of their medication list with them to their appt. Patient verbalizes understanding. documented in this encounter [facility] 01-16-2024 Telephone encounter Note Called patient to remind them to bring their most current copy of their medication list with them to their appt. Patient verbalizes understanding. [facility] 11-18-2023 Evaluation note Encounter Date Diagnosis [...] potassium improved with dietary restriction and Lasix. [facility] 01-29-2024 Evaluation note* Encounter Date Diagnosis Assessment Notes Treatment Notes Treatment Clinical Notes Oct, Anemia of renal disease (ICD-10 - D63.1) Oct, CKD (chronic kidney disease) stage 4, GFR 15-29 ml/min (ICD-10 - N18.4) [facility] 01-09-2024 Evaluation note* Encounter Date Diagnosis [...] potassium improved with dietary restriction and Lasix. [employer] [facility] 12-04-2023 Evaluation note* Encounter Date Diagnosis [...] 4, GFR 15-29 ml/min (ICD-10 - N18.4) [facility] 11-21-2023 Evaluation note* Encounter Date Diagnosis Assessment Notes Treatment Notes Treatment Clinical Notes Aug, Anemia of renal disease (ICD-10 - D63.1) Aug, CKD (chronic kidney disease) stage 4, GFR 15-29 ml/min (ICD-10 - N18.4) [facility] 11-09-2023 Evaluation note* Encounter Date Diagnosis [...] of kidney mass hydronephrosis or kidney stones. [facility] [employer] [facility] 10-26-2023 Evaluation note* Encounter Date Diagnosis [...] potassium improved with dietary restriction and Lasix. [facility] Communications Other 09-18-2023 Evaluation note* Encounter Date Diagnosis [...] potassium improved with dietary restriction and Lasix. [employer] Other 08-31-2023 Evaluation note* Encounter Date Diagnosis [...] potassium improved with dietary restriction and Lasix. [employer] Other 07-25-2023 Evaluation note* Encounter Date Diagnosis [...] to normal with dietary restriction and Lasix. [employer] Other 07-01-2023 Evaluation note* Encounter Date Diagnosis Assessment Notes Treatment Notes Treatment Clinical Notes Apr, CKD (chronic kidney disease) stage 4, GFR 15-29 ml/min (ICD-10 - N18.4) Apr, Anemia of renal disease (ICD-10 - D63.1) [employer] Other 06-27-2023 Evaluation note* Encounter Date Diagnosis [...] to normal with dietary restriction and Lasix. [employer] Other 06-01-2023 Evaluation note* Encounter Date Diagnosis [...] potassium diet and provide information about it. [employer] Other 03-16-2023 Evaluation note* Encounter Date Diagnosis [...] to Continue Vit D 5000 units daily [employer] Other 01-30-2023 Evaluation note* Encounter Date Diagnosis [...] to Continue Vit D 5000 units daily [employer] Other 12-22-2022 Evaluation note* Encounter Date Diagnosis [...] to Continue Vit D 5000 units daily [employer] Other 11-16-2022 Evaluation note* Encounter Date Diagnosis [...] to Continue Vit D 5000 units daily [employer] Other 08-04-2022 Evaluation note* Encounter Date Diagnosis Assessment Notes Treatment Notes Treatment Clinical Notes May, Hypertensive chronic kidney disease with stage 1 through stage 4 chronic kidney disease, or unspecified chronic kidney disease (ICD-10 - I12.9) [employer] Other 08-02-2022 Evaluation note* Encounter Date Diagnosis [...] to Continue Vit D 5000 units daily [employer] Other 07-19-2022 Evaluation note* Encounter Date Diagnosis Assessment Notes Treatment Notes Treatment Clinical Notes Apr, Hypertensive chronic kidney disease with stage 1 through stage 4 chronic kidney disease, or unspecified chronic kidney disease (ICD-10 - I12.9) [employer] Other 04-14-2022 Evaluation note* Encounter Date Diagnosis [...] to take Vit D 1000 units daily [employer] Other Evaluation noteNo InformationNort [employer] Other Evaluation note* Diagnosis Type 2 diabetes mellitus with hyperglycemia, with long-term 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 ([facility])- Primary Vitamin D deficiency Microalbuminuria Proteinuria Hyperlipemia, mixed ([facility]) Mixed hyperlipidemia Primary hypertension ([facility]) Unspecified essential hypertension Insulin long-term use ([facility]) Encounter for long-term (current) use of insulin 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[facility]) Chronic lymphocytic thyroiditis Encounter for dietary consultation Chronic renal disease, stage IV ([facility]) Chronic kidney disease, Stage IV (severe) documented in this encounter [facility]* Diagnosis Rash and other nonspecific skin eruption- Primary [facility] Diagnosis Granuloma annulare- Primary Other specified erythematous condition documented [facility]* Diagnosis Onychomycosis- Primary Dermatophytosis of nail Pain in both feet Corns and callosities Type 2 diabetes mellitus without complication, with long-term 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 ([facility]) [facility] Diagnosis Onychomycosis- Primary Dermatophytosis of nail Pain in both feet Corns and callosities Type 2 diabetes mellitus without complication, with long-term 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 ([facility]) [facility] Diagnosis Type 2 diabetes mellitus with hyperglycemia, with long-term 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 ([facility])- Primary Vitamin D deficiency Microalbuminuria Proteinuria Hyperlipemia, mixed ([facility]) Mixed hyperlipidemia Primary hypertension ([facility]) Unspecified essential hypertension Insulin long-term use ([facility]) Encounter for long-term (current) use of insulin 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[facility]) Chronic lymphocytic thyroiditis Encounter for dietary consultation Chronic renal disease, stage IV (CMS/HCC) Chronic kidney disease, Stage IV (severe) [facility] Atherosclerosis of hoh coronary artery of hoh heart without angina 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 Hypertensive urgency Shortness of breath Paroxysmal atrial fibrillation ([facility]) Atrial fibrillation Localized edema Edema [facility] Diagnosis Paroxysmal atrial fibrillation ([facility] Primary Atrial fibrillation Stage 4 chronic kidney disease (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) Other forms of angina pectoris ([facility]) Essential hypertension Unspecified essential hypertension Atherosclerosis of hoh coronary artery of hoh heart without angina 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 Hypertensive urgency Shortness of breath Localized edema Edema [facility] Diagnosis Medication management- Primary [facility] Diagnosis Medication management- Primary Atherosclerosis of hoh coronary artery of hoh heart without angina 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 Hypertensive urgency Shortness of breath Paroxysmal atrial fibrillation ([facility]) Atrial fibrillation Localized edema Edema [facility] - Reported* Type [...] NOSE 10/2019 Surgical History QUAD BYPASS AT [facility] [place] 01/01/2021 Hospitalization History ELEVATED BLOOD PRESSURE Hospitalization History SEE ABOVE Hospitalization History COVID 09/2020 [employer] Other Hisgwax general Narrative - Reported* Type Description Date [...] History SEE ABOVE Hospitalization History COVID 09/2020 [employer] Other history general Narrative - Reported* Type [...] History SEE ABOVE Hospitalization History COVID 09/2020 [employer] Other history general Narrative - [place]orted[place] [employer] Other history general Narrative - Reported* Type [...] NOSE 10/2019 Surgical History QUAD BYPASS AT [facility] [place] 01/01/2021 Hospitalization History ELEVATED BLOOD PRESSURE Hospitalization History SEE ABOVE Hospitalization History COVID 09/2020 [employer] Other InstructionsNot on filedocumented in this encounter [facility] filed[facility] in [facility] filedocumented [facility] this [facility] Summary Purpose Family History No [...] and content) DATE CREATED AUTHOR 04/02/[address] [facility] DATE CREATED AUTHOR AUTHOR'S ORGANIZ ATION 01/27/2023 [facility] DATE CREATED AUTHOR AUTHOR'S ORGANIZ ATION 01/18/2024 [facility] DATE CREATED AUTHOR AUTHOR'S ORGANIZ ATION 11/17/2024 [facility] EPIC DATE CREATED AUTHOR AUTHOR'S ORGANIZ ATION 11/29/2024 [facility] REASON FOR VISIT (unrecogniz ed section and content) Reason Comments Diabetes Mellitus Follow-up Reason Comments Skin Problem Reason Comments Suture / Staple Removal Reason Comments Diabetes Thyroid Problem Follow-up Reason Comments Med Refill Reason Comments Hospital Follow-up [facility] HTN AND 1 MONTH Hypertension Atrial Fibrillation Shortness of Breath Care Teams (unrecognized sec tion and content) 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 Relationship Specialty Start Date End Date Dhruv Rubi MD [address] [place] [address] PCP - General Family Medicine 10/22/23 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 Relationship Specialty Start Date End Date Dhruv Rubi MD [address] [facility] [place] [address] PCP - General Family Medicine 10/22/23 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 Relationship Specialty Start Date End Date Dhruv Rubi MD [address] [facility] [place] [address] PCP - General Family Medicine 10/22/23 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 Relationship Specialty Start Date End Date Dhruv Rubi MD [address] [facility] [place] [address] PCP - General Family Medicine 10/22/23 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 Relationship Specialty Start Date End Date Dhruv Rubi MD [address] [facility] [place] [address] PCP - General Family Medicine 10/22/23 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 Relationship Specialty Start Date End Date Dhruv Rubi MD [address] [facility] [place] [address] PCP - General Family Medicine 10/22/23 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 Relationship Specialty Start Date End Date Dhruv Rubi MD [address] [facility] [place] [address] PCP - General Family Medicine 10/22/23 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 Relationship Specialty Start Date End Date Dhruv Rubi MD [address] [facility] [place] [address] PCP - General Family Medicine 10/22/23 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 Relationship Specialty Start Date End Date Dhruv Rubi MD [address] [place] [address] PCP - General Family Medicine 10/22/23 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 Relationship Specialty Start Date End Date Dhruv Rubi MD [address] [place] [address] PCP - General Family Medicine 10/20/20 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 Relationship Specialty Start Date End Date Dhruv Rubi MD [address] [place] [phone] PCP - General Family Medicine 10/20/20 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 Relationship Specialty Start Date End Date Dhruv Rubi MD [address] [place] [phone] PCP - General Family Medicine 10/20/20 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 [employer] [facility]. provides no warranty or guarantee of the accuracy or completeness of information in this document.
[2025-01-05 07:16] LABS: Albumin Level 3.3 g/dL (3.4-5.0); Anion Gap 16.3; BUN Creatinine Ratio 18.5; Calcium 9.2 mg/dL (8.5-10.1); Carbon Dioxide 24.4 mmol/L (21.0-32.0); Chloride 105 mmol/L (98-107); Estimated GFR (African America 31 (>=60 mL/min/1.73m^2); Estimated GFR (Non-African Ame 26 (>=60 mL/min/1.73m^2); Glucose 122 mg/dL (74-106); Magnesium 1.9 mg/dL (1.8-2.4); Phosphorus 3.8 mg/dL (2.6-4.7); Potassium 4.7 mmol/L (3.5-5.1); Sodium 141 mmol/L (136-145); Uric Acid 3.9 mg/dL (2.6-6.0)
[2025-01-05 07:33] LABS: Hematocrit 31.5 % (36.0-48.0); Hemoglobin 10.4 g/dL (12.0-16.0); Mean Platelet Volume 9.4 fL (9.5-13.5); Platelet Count 182 10^3/uL (150-450); Red Blood Count 3.35 10^6/uL (4.20-5.40); Red Cell Distribution Width 15.1 % (11.0-15.0)
[2025-01-05 08:02] LABS: Percent Iron Saturation 33.3 %
[2025-01-05 09:43] LABS: Bilirubin Urine NEGATIVE (NEGATIVE); Blood Urine NEGATIVE (NEGATIVE); Clarity Urine CLOUDY (CLEAR); Color Urine LT. YELLOW (YELLOW); Glucose Urine UA NEGATIVE (NEGATIVE); Ketones Urine NEGATIVE (NEGATIVE); Leukocyte Esterase Urine MODERATE (NEGATIVE); Nitrite Urine NEGATIVE (NEGATIVE); Protein Urine 100 mg/dL (NEG/TRACE); Urobilinogen Urine 0.2 EU/dL (0.2-1.0)
[2025-01-05 10:45] LABS: Creatinine Urine Random 157.18 mg/dL (20.00-300.00); Protein Creatinine Ratio Urine 0.69; Total Protein Urine Random 108.9 mg/dL (<=11.9)
[2025-01-05 11:34] LABS: Bacteria Urine LARGE #/HPF (NONE SEEN); Cast Seen? NONE SEEN #/LPF (NONE SEEN); Crystals Seen? None Seen #/HPF (None Seen); Mucus Urine NONE SEEN (NONE SEEN); RBC Urine 0-2 #/HPF (0-2); Squamous Epithelial Cell Urine MODERATE #/LPF (NONE/RARE); WBC Urine >100 #/HPF (NONE SEEN)
[2025-01-06 09:09] LABS: PTH, Intact 73 pg/mL (15-65)
== END 2025-01-05 06:22 | disposition home or self-care (01) ==
LOC: LAB 06:24
PROVIDERS: PCP Family Medicine; Visit Provider Internal Medicine
DX: M10.9 Gout, unspecified (principal); E11.22 Type 2 diabetes mellitus with diabetic chronic kidney disease; E78.5 Hyperlipidemia, unspecified; N25.81 Secondary hyperparathyroidism of renal origin; I12.9 Hypertensive chronic kidney disease with stage 1 through stage 4 chronic kidney disease, or unspecified chronic kidney disease; N18.4 Chronic kidney disease, stage 4 (severe)
CPT/HCPCS: 36415; 80069; 81001; 82306; 82570; 82728; 83540; 83550; 83735; 83970; 84156; 84550; 85027

== ENCOUNTER 2025-03-03 15:16 | Outpatient (OUT) | payer MEDICARE, SELFPAY ==
--- OUTSIDE RECORDS SUMMARY | 2025-02-10 04:45 | XMS_ITS ---
Author Organization [facility] in [place] Address [address] [place] [address] Care Team Providers Care Antique Clock Repairer Name Role Phone Jeff Rubi Primary Care Provider [phone] REASON FOR VISIT B12 Encounters Encounter Location Date Provider Diagnosis [facility] [address] [place] [address] 02/10/2025 Jeff Rubi Low vitamin B12 leve l E53.8 Assessments Encounter Date Diagnosis (ICD Code) Assessment Notes Treatment Notes Treatment Clinical Notes Section Notes 02/10/2025 Low vitamin B12 level (ICD-10 - E53.8) Plan Of Treatment No Information Medications Administered Medication Instructions Date of Administration Dosage Notes Cyanocobalamin 02/10/2025 1 mL Progress Notes * Garima ROBINeDOB:1945 (79 yo F)Acc No.[id number]:02/10/2025 Progress Note Patient: Mercedez MEAD Provider: Ian Rubi (MD CANDIDA :1945 A ge:79 Y S ex:Female Date:02/10/2025 Address:[address] [place] [address] [place] [id number] Check In:08:32 AM ESTCheck O ut:09:15 AM EST Subjective: * Chief Complaints: * B 12 * Active Problem List M17.12 Unilateral primary o steoarthritis, left knee Modified On:02/12/2023 Status:confirmed M48.56XG Collapsed vertebra, not elsewhere classified, lumbar region, subsequent encounter for fracture with delayed healing Modified On:02/12/2023 Status:confirmed N18.4 Chronic kidney disea se, stage 4 (severe) Modified On:01/09/2024 Status:confirmed R07.9 Chest pain Modified On:01/09/2024 Status:confirmed E78.5 Hyperlipidemia Modified On:06/13/2023 Status:confirmed I34.0 Mitral regurgitation Modified On:02/12/2023 Status:confirmed I10 Hypertension Modified On:06/13/2023 Status:confirmed K21.9 GERD (gastroesophage al reflux disease) Modified On:03/18/2023 Status:confirmed R60.9 Edema Modified On:02/12/2023 Status:confirmed I25.10 Coronary artery dise ase Modified On:02/12/2023 Status:confirmed M19.90 Arthritis Modified On:02/12/2023 Status:confirmed M85.80 Osteopenia Modified On:02/12/2023 Status:confirmed M10.9 Gout Modified On:02/12/2023 Status:confirmed R06.00 Dyspnea Modified On:01/09/2024 Status:confirmed I48.0 Paroxysmal atrial fi brillation Modified On:02/12/2023 Status:confirmed J01.90 Acute sinusitis Modified On:02/12/2023 Status:confirmed J30.9 Allergic rhinitis Modified On:02/12/2023 Status:confirmed J20.9 Acute bronchitis Modified On:02/12/2023 Status:confirmed E87.5 Hyperkalemia Modified On:02/12/2023 Status:confirmed I20.0 Unstable angina Modified On:02/12/2023 Status:confirmed I25.798 Atherosclerosis of o ther coronary artery bypass graft(s) with other forms of angina pectoris Modified On:06/13/2023 Status:confirmed H26.9 Cataract Modified On:05/09/2023W/U Status:confirmed I34.0 Mitral insufficiency Modified On:02/12/2023 Status:confirmed E11.319 Diabetic retinopathy Modified On:02/12/2023 Status:confirmed E66.3 Over weight Modified On:02/12/2023 Status:confirmed I51.7 Ventricular hypertro phy Modified On:02/12/2023U Status:confirmed E03.9 Primary hypothyroidi sm Modified On:02/12/2023U Status:confirmed D50.9 Fe deficiency anemia Modified On:02/12/2023U Status:confirmed N89.8 Vaginal discharge Modified On:02/12/2023U Status:confirmed E11.51 Diabetes mellitus ty pe 2 with peripheral artery disease Modified On:01/09/2024 Status:confirmed Z91.81 At risk for falls Modified On:02/12/2023 Status:confirmed E11.3293 Type 2 diabetes diony itus 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, bilateral Modified On:02/12/2023U Status:confirmed I16.0 Hypertensive urgency Modified On:02/12/2023U Status:confirmed U07.1 COVID-19 Modified On:02/12/2023 Status:confirmed J12.82 Pneumonia due to Cor on2018 Modified On:02/12/2023 Status:confirmed M54.50 Low back pain, unspe cified Modified On:02/12/2023 Status:confirmed M54.59 Other low back pain Modified On:02/12/2023U Status:confirmed E53.8 Low vitamin B12 leve l Modified On:12/16/2023U Status:confirmed L03.90 Cellulitis Modified On:09/03/2023U Status:confirmed I77.9 Disorder of arteries and arterioles, unspecified Modified On:11/01/2023U Status:confirmed I73.9 Peripheral vascular disease, unspecified Modified On:12/05/2023U Status:confirmed N18.9 Chronic kidney disea se, unspecified Modified On:01/09/2024U Status:confirmed D63.1 Anemia in chronic ki dney disease Modified On:12/10/2023 Status:confirmed M46.92 Cervical arthritis Modified On:12/30/2023 Status:confirmed I10 HTN (hypertension) Modified On:02/13/2024 Status:confirmed N18.4 Acute worsening of s tage 4 chronic kidney disease Modified On:02/25/2024 Status:confirmed D50.9 Anemia, iron deficie ncy Modified On:02/25/2024 Status:confirmed E11.9 Diabetes mellitus Modified On:02/25/2024 Status:confirmed Z79.4 penitentiary current us e of insulin Modified On:02/25/2024 Status:confirmed E03.9 Acquired hypothyroid ism Modified On:02/25/2024 Status:confirmed I16.1 Hypertensive emergen cy Modified On:03/25/2024 Status:confirmed E83.42 Hypomagnesemia Modified On:03/25/2024 Status:confirmed I10 Hypertensive urgency Modified On:04/06/2024 Status:confirmed E11.9 DM2 (diabetes [facility], type 2) Modified On:04/06/2024 Status:confirmed I25.10 CAD (coronary artery disease) Modified On:04/06/2024 Status:confirmed E03.9 Hypothyroidism Modified On:04/06/2024 Status:confirmed L25.9 Contact dermatitis Modified On:04/30/2024 Status:confirmed M81.0 Age-related osteopor osis without current pathological fracture Modified On:06/09/2024 Status:confirmed N39.0 UTI (urinary tract i nfection) Modified On:09/04/2024 Status:confirmed I11.0 Hypertensive heart d isease with heart failure Modified On:11/18/2024 Status:confirmed E11.22 Chronic kidney disea se due to diabetes mellitus Modified On:11/18/2024 Status:confirmed * Medical History: * Surgical History: * Hospitalization/Major Diagno stic Procedure: * Medications: Objective: * Vitals: Assessment: * Assessment: 1. L ow vitamin B12 level - E53.8 (Primary) Plan: * Treatment: * Therapeutic Injections: Cyanocobalamin : 1 mL (Route: Intramuscular) given by CÉSAR Pride on right deltoid (Low vitamin B12 level) * Procedure Codes: [id number] THERAP.INJ. OF MED. INTRAMUSCULAR OR [id number] VITAMIN B-12 < 1000 MCG * * Sign off status: Completed Visit Status: C HK (Check Out) true * Provider: Ian Rubi ([facility])MD Date: 02/10/2025 Generated for Petar alcala/Candie/Georgetteitting on: 03/03/2025 03:19 PM EDT
--- OUTSIDE RECORDS SUMMARY | 2025-02-16 04:29 | XMS_ITS ---
Author Organization [facility] [place] Address [address] [place] [address] Care Team Providers Care Fluid Power Mechanic Name Role Phone Jeff Rubi Primary Care Provider REASON FOR VISIT rf test strips Medications Medication SIG (Take, Route, Fr equency, Duration) Notes Start Date End Date Status OneTouch Ultra Test test blood glucose d aily for 90 days Active Encounters Encounter Location Date Provider Diagnosis [facility] [address] [place] [address] 02/16/2025 Jeff Greyson Plan Of Treatment Medication Medication Name Sig Start Date Stop Date Notes OneTouch Ultra Test test blood glucose daily for 90 days Progress Notes * LOBITOGarima CHOIRamiroOB:1945 (79 yo F)Acc No.[id number]:02/16/2025 Patient: Mercedez MEAD :1945 A ge:79 Y S ex:Female Address:[address], [place] [address] * Refills Refill OneTouch Ultra Test, 100, test blood glucose daily, 90 days, Refills=3 * true * Date: Generated for Printi ng/Faxing/eTransmitting on: 0 03/03/2025 03:19 PM EDT
--- OUTSIDE RECORDS SUMMARY | 2025-02-25 09:00 | XMS_ITS | Encounter Summary ---
Author Organization [facility] Address [address] [place] [address] Care Team Providers Care Inspector Raw Quartz Name Role Phone Merrick Rubi MD Primary Care Provider [phone] Reason for Referral * Imaging (Routine) - Pending Review Specialty Diagnoses / Procedures Referred By Cody alvarez Referred To Contact Cardiology Diagnoses LVH (left ventricular hypertrophy) Mitral valve stenosis and aortic valve stenosis Procedures Transthoracic echo (TTE) complete Carlie Catherine MD [address] [place] [address] Referral ID Status Reason Start Date Expiration Date Visits Requested Visits Authorized [id number] Pending Review Perform Procedure 02/25/2025 02/25/2026 1 1 Encounter Details Date Type Department Care Team (Late st Contact Info) Description 02/25/2025 9:00 AM EDT Office Visit [facility] [address] [place] [address] Carlie Catherine MD [address] [place] [address] LVH (left ventricular hypertrophy); Mitral valve stenosis and aortic valve stenosis Social History Tobacco Use Types Packs/Day Years Used Date Smoking Tobacco: Former Cigarettes Smokeless Tobacco: Never Alcohol Use Standard Drinks/Week Comments Not Currently 0 (1 standard drink = 0.6 oz pur e alcohol) [place] Safety & Environment Answer Date Rec orded Fear of Current or Ex-Partner Not on file Emotionally Abused Not on file 01/27/2024 Physically Abused Not on file 01/27/2024 Sexually Abused Not on file 01/27/2024 Physically or Sexually Abused Not on file Sex and Gender Information Value Date Recorded Sex Assigned at Not on file Gender Identity Not on file Sexual Orientation Not on file documented as of this encounter Last Filed Vital Signs Vital Sign Reading Time Taken Comments Blood Pressure 126/70 02/25/2025 8:55 AM EDT Pulse 67 02/25/2025 8:55 AM EDT Temperature - - Respiratory Rate - - Oxygen Saturation 97% 02/25/2025 8:55 AM EDT Inhaled Oxygen Concentration - - Weight 88.5 kg (195 lb) 02/25/2025 8:55 AM EDT Height 167.6 cm (5' 6 ) 02/25/2025 8:55 AM EDT Body Mass Index 31.47 02/25/2025 8:55 AM EDT documented in this encounter Progress Notes * Carlie Catherine MD - 02/25/2025 9:00 AM EDT Images from the original note were not included. [facility] Cardiology Clinic Note Chief Complaint: Patient here for 3 month follow up. Patient states she is not feeling too bad. Patient states she is having a lot of congestion, coughing, SOB, dyspnea with exertion, leg swelling, fatigue and abdominal swelling. Dr. Rubi increased Lasix to 50mg x 1 month ago. HPI: Mercedez Robin is a 79 y.o. female Doing okay; her shortness of breath is stable. She has had no further chest pain. She brought in a log of her blood pressure readings from home; there were several measurements in the 160s to 170s systolic. UPDATE 02/25/2025 She has put on 5 pounds since November and 15 pounds since May of last year. Her Lasix was recently increased due to fluid retention. This has helped. She denies chest pain. She has no orthopnea, paroxysmal external dyspnea, and her lower extremity edema has improved. Cardiology ROS: Review of Systems Constitutional: Positive for malaise/fatigue. Cardiovascular: Positive for dyspnea on exertion, irregular heartbeat and palpitations. Respiratory: Positive for cough and shortness of breath. Musculoskeletal: Positive for myalgias. Neurological: Positive for light-headedness. All other systems reviewed and are negative. Past Medical History She has a past medical history of Abnormal ECG, Chronic kidney disease, Coronary artery disease, Diabetes mellitus (CMS/HCC), Heart valve disease, Hyperlipidemia, and Hypertension. Surgical History She has a past surgical history that includes Coronary artery bypass graft and Cardiac catheterization. Social History She reports that she has quit smoking. Her smoking use included cigarettes. She has never used smokeless tobacco. She reports that she does not currently use alcohol. No history on file for drug use. Family History Family History Family history unknown: Yes Allergies Amlodipine, Doxazosin, Iodinated contrast media, Sulfamethoxazole, Amoxicillin- pot clavulanate, andSulfamethoxazole-trimethoprim Medications Current Outpatient Medications: allopurinol (Zyloprim) 300 mg tablet, Take 100 tablets by mouth in the morning., Disp: , Rfl: aspirin 81 mg EC tablet, Take 81 mg by mouth in the morning., Disp: , Rfl: atorvastatin (Lipitor) 80 mg tablet, Take 80 mg by mouth at bedtime., Disp: , Rfl: carvedilol (Coreg) 25 mg tablet, Take 25 mg by mouth with breakfast and with evening meal., Disp: ,Rfl: cloNIDine (Catapres) 0.1 mg tablet, Take 0.1 mg by mouth if needed each day for high blood pressure., Disp: , Rfl: diclofenac (Voltaren) 75 mg EC tablet, Take 1 tablet by mouth twice a day., Disp: , Rfl: ferrous sulfate 325 (65 Fe) MG tablet, Take 1 tablet by mouth 2 times daily., Disp: , Rfl: furosemide (Lasix) 20 mg tablet, Take 20 mg by mouth in the morning., Disp: , Rfl: hydrALAZINE (Apresoline) 10 mg tablet, Take 1 tablet (10 mg) by mouth three times daily., Disp: 270tablet, Rfl: 3 hydrALAZINE (Apresoline) 25 mg tablet, Take 1 tablet (25 mg) by mouth three times daily., Disp: 270tablet, Rfl: 3 hydrALAZINE (Apresoline) 50 mg tablet, Take 1 tablet (50 mg) by mouth three times daily., Disp: 270tablet, Rfl: 3 insulin degludec (Tresiba FlexTouch U-100) 100 unit/mL (3 mL) injection, Inject under the skin at bedtime., Disp: , Rfl: insulin detemir (Levemir FlexPen) 100 unit/mL (3 mL) injection pen, INJECT 50 UNITS SUBCUTANEOUSLY (under the skin) TWICE DAILY, Disp: , Rfl: isosorbide mononitrate ER (Imdur) 120 mg 24 hr tablet, Take 120 mg by mouth in the morning. Do not crush or chew., Disp: , Rfl: levothyroxine (Synthroid, Levoxyl) 125 mcg tablet, TAKE 1 TABLET BY MOUTH EVERY MORNING ON AN EMPTYSTOMACH, Disp: , Rfl: liothyronine (Cytomel) 5 mcg tablet, Take 10 mcg by mouth in the morning., Disp: , Rfl: lisinopril 40 mg tablet, Take 40 mg by mouth in the morning., Disp: , Rfl: magnesium oxide (Mag-Ox) 400 mg (241.3 mg magnesium) tablet, Take 1 tablet by mouth in the morning,afternoon, and at bedtime., Disp: , Rfl: nitroglycerin [...] mouth in the morning., Disp: , Rfl: ranolazine (Ranexa) 500 mg 12 hr tablet, Take 1 tablet by mouth twice a day., Disp: , Rfl: Last Recorded Vitals BP 126/70 (BP Location: Right arm, Patient Position: Sitting) Pulse 67 Ht 1.676 m (5' 6 ) Wt 88.5 kg (195 lb) SpO2 97% BMI 31.47 kg/m?? Physical Examination: GENERAL: alert and oriented x3, [...] Cardiac Cath 2020 Patient Information Patient Name Mercedez Robin Sex Female Physicians Panel Physicians Referring [...] free space; trivial effusion versus fat pad CONCLUSION: 1. Moderate to severe left ventricular concentric hypertrophy with hyperdynamic systolic function. LVEF is 75%. 2. Normal right ventricular size and systolic function. 3. An echogenic mobile density is seen attached to the atrial surface of the posterior mitral leaflet, but could represent an imaging artifact. Depending on the clinical picture this can be investigated by further imaging such as transesophageal echocardiogram. 4. Limited study performed with no Doppler interrogation as requested. Echocardiogram 06/26/2024: Left ventricular systolic function is hyperdynamic; visually estimated ejection fraction is 65 to 70% Normal right ventricular size and systolic function Mild left ventricular hypertrophy Grade 1 diastolic dysfunction The left atrium is mildly dilated Mild mitral stenosis Assessment: Coronary artery disease, history of coronary artery bypass graft surgery Postoperative atrial fibrillation without recurrence Chronic kidney disease s.cr 1.89 01/2025 History of COVID-19 Diabetes mellitus Dyslipidemia Hypothyroidism Mitral stenosis Left ventricular hypertrophy, diastolic dysfunction Plan: Optimal medical therapy for coronary artery disease in a diabetic should include continued aspirin,high intensity statin therapy, a beta-za, a RAAS inhibitor; her chronic kidney disease is prohibitive. She is currently on Imdur and Hydralazine in lieu of an RAAS inhibitor A diabetic patient with coronary artery disease should be on an SGLT2 inhibitor however given her chronic kidney disease will defer for now She is to continue to weigh herself daily; if she notices an increase in weight by 3 pounds or more, she is to take an extra 20 mg tablet of Lasix. She is to let us know if this does not help bring her weight down. I have asked her to check her blood pressure at home a.m. and p.m. an hour after medications and tokeep a log She is to follow-up with her assistant professor of surgery given her chronic kidney disease We will repeat an echocardiogram in June of this year to serially monitor her valvular heart disease Return to clinic in 6 months or sooner should problems arise Carlie Catherine MD, MPH, FACC, [facility], [facility] Interventional Cardiology documented in this encounter Plan of Treatment Scheduled Orders Name Type Priority Associated Diagnoses Orde r Schedule Transthoracic echo (TTE) complete Echocardiography Routine LVH (left ventricular hypertrophy) Mitral valve stenosis and aortic valve stenosis Expected: 02/25/2025 (Approximate), Expires: 02/25/2027 documented as of this encounter Visit Diagnoses Diagnosis LVH (left ventricular hypertrophy) Cardiomegaly Mitral valve stenosis and aortic valve stenosis documented in this encounter Care Teams Inspector Raw Quartz Relationship Specialty Start Date End Date Merrick Rubi MD [address] [place], [place] [id number] PCP - General 01/22/24 documented as of this encounter
--- OUTSIDE RECORDS SUMMARY | 2025-03-03 09:03 | XMS_ITS ---
Author Organization [facility] [place] Address [address] [place] [address] Care Team Providers Care Sales Training Coordinator Name Role Phone Jeff Rubi Primary Care Provider REASON FOR VISIT Xray Encounters Encounter Location Date Provider Diagnosis [facility] [address] [place] [address] 03/03/2025 Jeff Rubi Right knee pain M25.561 Assessments Encounter Date Diagnosis (ICD Code) Assessment Notes Treatment Notes Treatment Clinical Notes Section Notes 03/03/2025 Right knee pain (ICD-10 - M25.561) Plan Of Treatment Pending Test Test Name Order Date XR KNEE RT 3V 03/03/2025 Progress Notes * LOBITOLandry CHOIHandyOB:1945 (79 yo F)Acc No.[id number]:03/03/2025 Patient: Mercedez MEAD :1945 A ge:79 Y S ex:Female Address:[address] [place] [address] [address] , [place] [address] Subjective: * Chief Complaints: * X ray * Medical History: * Surgical History: * Hospitalization/Major Diagno stic Procedure: * Medications: Objective: * Vitals: * Physical Examination: Assessment: * Assessment: 1. R ight knee pain - M25.561 (Primary) Plan: * Treatment: * Procedure Codes: * true * Date: Generated for Printi ng/Faxing/eTransmitting on: 0 03/03/2025 03:19 PM EDT
--- OUTSIDE RECORDS SUMMARY | 2025-03-03 15:18 | XMS_ITS | Encounter Summary ---
Author Organization [facility] Address [id number] [address] [place] [address] Care Team Providers Care Provider Education Specialist Name Role Phone Merrick Rubi MD Primary Care Provider [phone] Reason for Visit * Reason Onset Date Comments Status Post Cath 12/29/2020 Encounter Details Date Type Department Care Team (Late st Contact Info) Description 12/29/2020 Telephone [facility] [address] [place] [phone] Kassie Graham MD [address] [place], [place] [id number] Status Post Cath Social History Tobacco Use Types Packs/Day Years Used Date Smoking Tobacco: Former Cigarettes Q uit: 10/07/1969 Smokeless Tobacco: Never Alcohol Use Standard Drinks/Week Comments Not Currently 0 (1 standard drink = 0.6 oz pur e alcohol) Social Connection and Isolat ion Panel [NHANES] Answer Date Recorded In a typical week, how many times do you talk on the phone with family, friends, or neighbors? More than three times a week 12/28/2020 How often do you get togethe r with friends or relatives? More than three times a week 12/28/2020 How often do you attend chur or confucianist services? More than 4 times per year 12/28/2020 Do you belong to any clubs o r organizations such as jew groups, unions, fraternal or athletic groups, or school groups? No 12/28/2020 How often do you attend meet ings of the clubs or organizations you belong to? Never 12/28/2020 Are you , , di vorced, , never , or living with a partner? 12/28/2020 Overall Financial Resource Strain (CARDIA) Answe r Date Recorded How hard is it for you to pa y for the very basics like food, housing, medical care, and heating? Not hard at all 12/28/2020 PHQ-2 Answer Date Recorded Total Score 0 12/28/2020 [facility] Occupat ional Health - Occupational Stress Questionnaire Answer Date Recorded Do you feel stress - tense, restless, nervous, or anxious, or unable to sleep at night because your mind is troubled all the time - these days? Not at all 12/28/2020 Exercise Vital Sign Answer Date Recorde d On average, how many days pe r week do you engage in moderate to strenuous exercise (like a brisk walk)? 0 days 12/28/2020 On average, how many minutes do you engage in exercise at this level? 0 min 12/28/2020 PRAPARE - Transportation Answer Date Re corded In the past 12 months, has l ack of transportation kept you from medical appointments or from getting medications? No 12/06 In the past 12 months, has l ack of transportation kept you from meetings, work, or from getting things needed for daily living? No 12/28/2020 Childcare Answer Date Recorded Do problems getting child ca re make it difficult for you to work or study? No 12/28/2020 Employment Answer Date Recorded Do you need help finding a [facility] career center and/or a training program? No 12/28/2020 Purpose - Life Answer Date Recorded I have a purpose and direction in my life. Agree 12/28/2020 Comments No Sex and Gender Information Value Date Recorded Sex Assigned at Not on file Legal Sex Female 2:19 PM EDT Gender Identity Not on file Sexual Orientation Not on file COVID-19 Exposure Response Date Recorded In the last month, have you been in contact with someone who was confirmed or suspected to have Coronavirus / COVID-19? No / Unsure 12/29/2020 11:37 AM EDT documented as of this encounter Miscellaneous Notes * Telephone Encounter - Neelima Son - 12/29/2020 8:48 AM EDT Per message from / procedure list: Pt had cath w/ [facility] @ [facility] where pt is currently admitted. Will be having CABG w/ Dr. De Paz 12/29. Pt will need f/u in office 7-10 days after d/c //keb * Telephone Encounter - Ines Ponce - 12/29/2020 8:48 AM EDT STILL ADMITTED * Telephone Encounter - Ines Ponce - 12/29/2020 8:48 AM EDT STILL ADMITTED documented in this encounter Plan of Treatment Not on file documented as of this encounter Visit Diagnoses Not on filedocumented in this encounter Additional Health Concerns Assessment Noted Time PHQ-9 Depression Total Score: 0 12/29/19 21 3:16 PM EDT documented as of this encounter Care Teams Provider Education Specialist Relationship Specialty Start Date End Date Merrick Rubi MD PCP - General Family Medicine 10/20/20 documented as of this encounter
--- OUTSIDE RECORDS SUMMARY | 2025-03-03 15:18 | XMS_ITS | Clinical Summary ---
Author Organization [facility] Address [address] [place] [address] Care Team Providers Care Lobby Attendant Name Role Phone Merrick Rubi MD Primary Care Provider [phone] Allergies Active Allergy Reactions Criticality Noted Date Comments Sulfamethoxazole-Trimethoprim Hives 2014 Medications allopurinol (ZYLOPRIM) 100 MG tablet Take 100 mg by mouth daily 06/22/2015 Active fluconazole (DIFLUCAN) 100 MG tablet 05/04/2015 Active LEVEMIR FLEXTOUCH 100 UNIT/ML injection pen 40 Units 2 times daily 06/15/2015 Active labetalol (NORMODYNE) 200 MG tablet Take 200 mg by mouth 2 times daily 06/22/2015 Active levothyroxine (SYNTHROID) 125 MCG tablet Take 125 mcg by mouth daily 06/22/2015 Active lisinopril (PRINIVIL;ZESTR IL) 40 MG tablet Take 40 mg by mouth daily 06/22/2015 Active simvastatin (ZOCOR) 80 MG tablet Take 80 mg by mouth nightly 06/22/2015 Active Insulin Aspart (NOVOLOG FLEXPEN SC) Inject into the skin 4 units if BS under 140, 8 units if BS over 140 Active aspirin 81 MG tablet Take 81 mg by mouth daily Active Multiple Vitamin (MULTIVITAMINS PO) Take by mouth daily Active Multiple Vitamins-Minera ls (THERAPEUTIC MULTIVITAMIN-SD NERALS) tablet Take 1 tablet by mouth daily Active calcium carbonate (OSCAL) 500 MG TABS tablet Take 500 mg by mouth daily Active Active Problems Problem Noted Date Diagnosed Date 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 01/30/2016 IDDM (insulin dependent diabetes mellitus) 08/04 Acquired hypothyroidism 08/04/2015 Family History Medical History Relation Name Comments Diabetes Brother 2 Diabetes Brother 3 Diabetes Brother 4 Cancer Father lung Diabetes Father Diabetes Maternal Grandfather Cancer Maternal Grandmother breast Diabetes Maternal Grandmother Cancer Mother breast Diabetes Mother Diabetes Paternal Grandfather Diabetes Paternal Grandmother Diabetes Sister 1 Diabetes Sister 2 Relation Name Status Comments Brother 1 Brother 2 Brother 3 Alive Brother 4 Alive Father Maternal Grandfather Maternal Grandmother Mother Paternal Grandfather Paternal Grandmother Sister 1 Alive Sister 2 Alive Social History Tobacco Use Types Packs/Day Years Used Date Smoking Tobacco: Never Smokeless Tobacco: Never Alcohol Use Standard Drinks/Week Comments No 0 (1 standard drink = 0.6 oz pur e alcohol) Comments No Sex and Gender Information Value Date Recorded Sex Assigned at Not on file Legal Sex Female 4:54 PM EST Gender Identity Not on file Sexual Orientation Not on file Last Filed Vital Signs Vital Sign Reading Time Taken Comments Blood Pressure 154/71 01/30/2016 1:40 PM EDT Pulse 75 01/30/2016 1:40 PM EDT Temperature 36.7 C (98 F) 01/30/2016 1:24 PM EDT Respiratory Rate 18 01/30/2016 1:40 PM EDT Oxygen Saturation 97% 01/30/2016 1:40 PM EDT Inhaled Oxygen Concentration - - Weight 90.7 kg (200 lb) 01/30/2016 12:28 PM EDT Height 167.6 cm (5' 6 ) 01/30/2016 12:28 PM EDT Body Mass Index 32.28 01/30/2016 12:28 PM EDT Plan of Treatment Not on file Insurance MEDICARE [facility] Advance Directives * Full Code (Latest Code Status on File) Date Activated Date Inactivated Comments 01/30/2016 1:33 PM 01/30/2016 4:23 PM * Full Code Date Activated Date Inactivated Comments 01/30/2016 12:27 PM 01/30/2016 1:33 PM Care Teams Lobby Attendant Relationship Specialty Start Date End Date Merrick Rubi MD [address] [place] [address] PCP - General 01/17/16
--- OUTSIDE RECORDS SUMMARY | 2025-03-03 15:18 | XMS_ITS | Encounter Summary ---
Author Organization [facility] Address [id number] [address] [place] [address] Care Team Providers Care Nuclear Medicine Specialist Name Role Phone Merrick Rubi MD Primary Care Provider [phone] Encounter Details Date Type Department Care Team (Late st Contact Info) Description 01/12/2021 Orders Only [facility] [address] [id number] External, Scanning Provider Social History Tobacco Use Types Packs/Day Years [...] 12/28/2020 How often do you attend chur ch or roman catholic services? More than 4 times per year 12/28/2020 Do you belong to any clubs o r organizations such as taoist groups, unions, fraternal or athletic groups, or [...] Answer Date Recorded Total Score 0 12/28/2020 [facility] of Occupat ional Health - Occupational Stress [...] Recorded Do you need help finding a [facility] career center and/or a training program? No [...] have Coronavirus / COVID-19? No / Unsure 01/11/2021 2:31 PM EDT documented as of this encounter Plan of Treatment Not on file documented as of this encounter Goals Goal Patient Goal Type Associated Problems Recent Progress Patient-Stated? Author <enter goal here> General Yes Dione Mason LSW Note: Evaluation of progress towards goal: return home with homecare and support from [facility], children and grandchildren documented as of this encounter Procedures Procedure Name Priority Date/Time Associated Diagnosis Comments CBC (NO DIFF) Routine 01/12/2021 documented in this encounter Results * CBC without diff (01/12/2021) us Scanning Provider External LAB BLOOD ORDERABLES Final Result MANUALLY TRANSCRIBED RESULTS documented in this encounter Visit Diagnoses Not on filedocumented in this encounter Additional Health Concerns Assessment Noted Time PHQ-9 Depression Total Score: 0 12/29/19 21 3:16 PM EDT documented as of this encounter Care Teams Nuclear Medicine Specialist Relationship Specialty Start Date End Date Merrick Rubi MD PCP - General Family Medicine 10/20/20 documented as of this encounter
--- OUTSIDE RECORDS SUMMARY | 2025-03-03 15:18 | XMS_ITS | Encounter Summary ---
Author Organization [facility] Address [address] [place] [address] Care Team Providers Care All Terrain Vehicle Racer Name Role Phone Merrick Rubi MD Primary Care Provider [phone] Encounter Details Date Type Department Care Team (Late st Contact Info) Description 01/31/2016 Post-op Telephone [facility] General Surgery [address] [place], [place] [id number] Maryam Amador RN Social History Tobacco Use Types Packs/Day Years [...] on file documented as of this encounter Plan of Treatment Not on file documented as of this encounter Visit Diagnoses Not on filedocumented in this encounter Care Teams All Terrain Vehicle Racer Relationship Specialty Start Date End Date Merrick Rubi MD [address] [place] [address] PCP - General 01/17/16 documented as of this encounter
--- OUTSIDE RECORDS SUMMARY | 2025-03-03 15:18 | XMS_ITS | Encounter Summary ---
Author Organization [facility] tem Address [id number] [place] [address] Care Team Providers Care High School Hvac R Instructor Name Role Phone Merrick Rubi MD Primary Care Provider [phone] Reason for Visit * Reason Onset Date Comments STAFF MESSAGE 01/03/2021 Encounter Details Date Type Department Care Team (Late st Contact Info) Description 01/03/2021 Telephone [facility] [address] [place] [phone] Fátima Hernandez MD [address] [place] [address] STAFF MESSAGE Social History Tobacco Use Types Packs/Day Years [...] often do you attend chur ch or jehovah's witness services? More than 4 times per year 12/28/2020 Do you belong to any clubs o r organizations such as voodoo groups, unions, fraternal [...] Answer Date Recorded Total Score 0 12/28/2020 [facility] - Occupational Stress [...] Recorded Do you need help finding a [facility] career center and/or a training program? [...] have Coronavirus / COVID-19? No / Unsure 01/04/2021 9:10 AM EDT documented as of this encounter Miscellaneous Notes * Telephone Encounter - Neelima Son - 01/03/2021 12:34 PM EDT ----- Message from Fátima Hernandez MD sent at 01/03/2021 9:34 AM EDT ----- Patient s/p CABG, likely discharge today. Will need follow up in 10-14 days. Thanks, MS documented in this encounter Plan of Treatment Not on file documented as of this encounter Goals Goal Patient Goal Type Associated Problems Recent Progress Patient-Stated? Author <enter goal here> General Yes Dione Mason LSW Note: Evaluation of progress towards goal: return home with homecare and support from [facility], children and grandchildren documented as of this encounter Visit Diagnoses Not on filedocumented in this encounter Additional Health Concerns Assessment Noted Time PHQ-9 Depression Total Score: 0 12/29/19 21 3:16 PM EDT documented as of this encounter Care Teams High School Hvac R Instructor Relationship Specialty Start Date End Date Merrick Rubi MD PCP - General Family Medicine 10/20/20 documented as of this encounter
--- OUTSIDE RECORDS SUMMARY | 2025-03-03 15:18 | XMS_ITS | Encounter Summary ---
Author Organization [facility] tem Address [id number] [address] [place] [address] Care Team Providers Care Field Artillery Senior Sergeant Name Role Phone Merrick Rubi MD Primary Care Provider [phone] Encounter Details Date Type Department Care Team (Late st Contact Info) Description 01/17/2024 Orders Only [facility] [address] [place] [phone] External, Scanning Provider Social History Tobacco Use [...] often do you attend chur ch or restorationist services? More than 4 times per year 12/28/2020 Do you belong to any clubs o r organizations such as pentecostal groups, unions, fraternal or athletic groups, or [...] Answer Date Recorded Total Score 0 12/28/2020 [facility] - [...] Recorded Do you need help finding a [employer] career center and/or a training program? No 12/28/2020 Hunger Screening Answer Date Recorded Within the past 12 months we worried whether our food would run out before we got money to buy more. Never True 01/17/2024 Within the past 12 months th e food we bought just didn't last and we didn't have money to get more. Never True 01/17/2024 Purpose - Life Answer Date Recorded I [...] Procedure Name Priority Date/Time Associated Diagnosis Comments URINE CULTURE Routine 01/02/2024 8:53 AM EDT ECG 12-LEAD Routine 01/01/2024 9:50 AM EDT MULTIPLE LABS Routine 01/01/2024 9:11 AM EDT MULTIPLE LABS Routine 01/01/2024 8:52 AM EDT ECG 12-LEAD Routine 12/31/2023 9:48 AM EDT URINALYSIS Routine 12/31/2023 9:10 AM EDT MULTIPLE LABS Routine 12/31/2023 8:[address] CERVICAL SPINE WO CONT Routine 12/30/2023 10:24 AM EDT XR CHEST 1 VW Routine 12/30/2023 10:22 AM EDT ECG 12-LEAD Routine 12/30/2023 9:12 AM EDT MULTIPLE LABS Routine 12/30/2023 8:50 AM EDT documented in this encounter Results * Urine Culture (01/02/2024 8:53 AM EDT) Urine us Scanning Provider External MICROBIOLOGY - GENERA L ORDERABLES Final Result Performing Organization Address [facility] Phone Number MANUALLY TRANSCRIBED RESULTS * ECG 12 lead (01/01/2024 9:50 AM EDT) us Scanning Provider External ECG ORDERABLES Final Result Performing Organization Address [facility] Phone Number MANUALLY TRANSCRIBED RESULTS * Multiple labs (01/01/2024 9:11 AM EDT) us Scanning Provider External [place] IMAGING Final Result Performing Organization Address [facility] de Phone Number MANUALLY TRANSCRIBED RESULTS * Multiple labs (01/01/2024 8:52 AM EDT) us Scanning Provider External [place] IMAGING Final Result Performing Organization Address [facility] de Phone Number MANUALLY TRANSCRIBED RESULTS * ECG 12 lead (12/31/2023 9:48 AM EDT) us Scanning Provider External ECG ORDERABLES Final Result Performing Organization Address [facility] de Phone Number MANUALLY TRANSCRIBED RESULTS * Urinalysis (12/31/2023 9:10 AM EDT) us Scanning Provider External URINE ORDERABLES Pamella l Result Performing Organization Address [facility] Phone Number MANUALLY TRANSCRIBED RESULTS * Multiple labs (12/31/2023 8:51 AM EDT) us Scanning Provider External [place] IMAGING Final Result Performing Organization Address [facility] Phone Number MANUALLY TRANSCRIBED RESULTS * CT cervical spine without contrast (12/30/2023 10:24 AM EDT) Anatomical Region Laterality Modality MSK, Neuro, Spine, C-spine, Spine Covera N/A Computed Tomography us Scanning Provider External IMG CT ORDERABLES Fin al Result * X-ray chest 1 view (12/30/2023 10:22 AM EDT) Anatomical Region Laterality Modality Body, Chest N/A Computed Radiogr aphy us Scanning Provider External IMG DIAGNOSTIC IMAGIN G ORDERABLES Final Result * ECG 12 lead (12/30/2023 9:12 AM EDT) us Scanning Provider External ECG ORDERABLES Final Result Performing Organization Address [facility] Phone Number MANUALLY TRANSCRIBED RESULTS * Multiple labs (12/30/2023 8:50 AM EDT) us Scanning Provider External [place] IMAGING Final Result Performing Organization Address [facility] de Phone Number MANUALLY TRANSCRIBED RESULTS documented in this encounter Visit Diagnoses Not on filedocumented in this encounter Additional Health Concerns Assessment Noted Time PHQ-9 Depression Total Score: 0 12/29/19 21 3:16 PM EDT documented as of this encounter Care Teams Field Artillery Senior Sergeant Relationship Specialty Start Date End Date Merrick Rubi MD PCP - General Family Medicine 10/20/20 documented as of this encounter
--- OUTSIDE RECORDS SUMMARY | 2025-03-03 15:18 | XMS_ITS | Encounter Summary ---
Author Organization [facility] tem Address [id number] [address] [place] [address] Care Team Providers Care Pocket Maker Name Role Phone Merrick Rubi MD Primary Care Provider [phone] Encounter Details Date Type Department Care Team (Late st Contact Info) Description 12/16/2020 Orders Only [facility] [address] [place] [phone] External, Scanning Provider Social History Tobacco Use Types Packs/Day Years Used Date Smoking Tobacco: Former Cigarettes Q uit: 10/07/1969 Smokeless Tobacco: Never Alcohol Use Standard Drinks/Week Comments Not Currently 0 (1 standard drink = 0.6 oz pur e alcohol) Childcare Answer Date Recorded Childcare Unknown 10/20/2020 Employment Answer Date Recorded Employment Unknown 10/20/2020 Purpose - Life Answer Date Recorded Purpose and direction in life Unknown Comments Unknown Sex and Gender Information Value Date Recorded Sex Assigned at Not on file Legal Sex Female 2:19 PM EDT Gender Identity Not on file Sexual Orientation Not on file COVID-19 Exposure Response Date Recorded In the last month, have you been in contact with someone who was confirmed or suspected to have Coronavirus / COVID-19? No / Unsure 2020 1:09 PM EST documented as of this encounter Plan of Treatment Not on file documented as of this encounter Procedures Procedure Name Priority Date/Time Associated Diagnosis Comments H-CARDIAC CATHETERIZATION Routine 05/24/2017 documented in this encounter Results * Cardiac catheterization (05/24/2017) Anatomical Region Laterality Modality Other us Scanning Provider External CV CARDIAC CATH ORDER INGA Final Result documented in this encounter Visit Diagnoses Not on filedocumented in this encounter Care Teams Pocket Maker Relationship Specialty Start Date End Date Merrick Rubi MD PCP - General Family Medicine 10/20/20 documented as of this encounter
--- OUTSIDE RECORDS SUMMARY | 2025-03-03 15:18 | XMS_ITS | Encounter Summary ---
Author Organization [facility] tem Address [id number] [address] [place] [address] Care Team Providers Care Academic Associate Name Role Phone Merrick Rubi MD Primary Care Provider [phone] Reason for Visit * Reason Onset Date Comments Results 01/17/2021 Encounter Details Date Type Department Care Team (Late st Contact Info) Description 01/17/2021 Telephone [facility] [address] [place] [address] Linda Gonzalez, JUANPABLO Results Social History Tobacco Use Types Packs/Day Years [...] often do you attend chur ch or gnosticism services? More than 4 times per year 12/28/2020 Do you belong to any clubs o r organizations such as sabianist groups, unions, fraternal or athletic groups, or [...] Answer Date Recorded Total Score 0 12/28/2020 [facility] Health - Occupational [...] Recorded Do you need help finding a [facility] career center and/or a training [...] have Coronavirus / COVID-19? No / Unsure 01/18/2021 9:41 AM EDT documented as of this encounter Miscellaneous Notes * Telephone Encounter - Linda Gonzalez RN - 01/17/2021 4:08 PM EDT Images from the original note were not included. Alin Tarango, DO 01/17/2021 ??2:34 PM EDT No changes for now, she should maintain medications as prescribed at her most recent visit and follow up as advised. ??She should let us know if any changes or worsening in symptoms. ? BMP in a month as well. ?? Thanks for your help, ?? * Telephone Encounter - NILESH Samuels - 01/17/2021 4:08 PM EDT signed documented in this encounter Plan of Treatment Not on file documented as of this encounter Goals Goal Patient Goal Type Associated Problems Recent Progress Patient-Stated? Author <enter goal here> General Yes Dione Mason LSW Note: Evaluation of progress towards goal: return home with homecare and support from [facility], children and grandchildren documented as of this encounter Results * (ABNORMAL) Basic Metabolic Panel (01/30/2021 8:27 AM EDT) Sodium 135 134 - 146 mmol/L 01/30/2021 2:48 PM EDT [facility] Potassium, Bld 4.2 3.5 - 5.0 mmol/L 01/30/2021 2:48 PM EDT [facility] Chloride 98 98 - 109 mmol/L 01/30/2021 2:48 PM EDT [facility] CO2 24 22 - 32 mmol/L 01/30/2021 2:48 PM EDT [facility] Anion gap 13 5 - 15 mmol/L 01/30/2021 2:48 PM EDT [facility] BUN 53(H) 5 - 27 mg/dL 01/30/2021 2:48 PM EDT [facility] Creatinine 1.90(H) 0.40 - 1.00 mg/dL 01/30/2021 2:48 PM EDT [facility] Comment:METHOD TRACEABLE TO IDMS STANDARD Glucose 222(H) 65 - 99 mg/dL 01/30/2021 2:48 PM EDT [facility] Calcium 9.7 8.5 - 10.5 mg/dL 01/30/2021 2:48 PM EDT [facility] GFR MDRD Non Af Amer 26(L) >59 ml/min/1.7 3sq.m 01/30/2021 2:48 PM EDT [facility] GFR MDRD Af Amer 31(L) >59 ml/min/1.7 3sq.m 01/30/2021 2:48 PM EDT [facility] Serum / Unknown 01/30/2021 8 :27 AM EDT 01/30/2021 8:28 AM EDT us Marie Garcia RIVET CATCHER[employer] [facility] LAB BLOOD ORDERABLES Final Result [facility] [address], [address] [place] [address] documented in this encounter Visit Diagnoses Diagnosis Paroxysmal atrial fibrillation ([facility]-HCC)- Primary Atrial fibrillation Unstable angina (CMS-HCC) Intermediate coronary syndrome documented in this encounter Additional Health Concerns Assessment Noted Time PHQ-9 Depression Total Score: 0 12/29/19 21 3:16 PM EDT documented as of this encounter Care Teams Academic Associate Relationship Specialty Start Date End Date Merrick Rubi MD PCP - General Family Medicine 10/20/20 documented as of this encounter
--- OUTSIDE RECORDS SUMMARY | 2025-03-03 15:19 | XMS_ITS | Clinical Summary ---
Author Organization [facility] Address [address] [place] [address] Care Team Providers Care Livestock Judging Coach Name Role Phone Merrick Rubi MD Primary Care Provider [phone] Allergies Active Allergy Reactions Criticality Noted Date Comments Amlodipine Other,Rash,Unknown High 03/28/2005 NORVASC Amoxicillin-Pot Clavulanate Other,Rash,Unknown Low 11/23/2020 AUGMENTIN Doxazosin Other 11/23/2020 Iodinated Contrast Media Other 11/23/2020 Sulfamethoxazole Other 03/12/2023 Sulfamethoxazole-Trimethoprim Hives,Othe r,Rash,Unkn own Low 08/04/2015 BACTRIM Medications Medication Sig Dispensed Refills Start Date End Date Status aspirin 81 mg EC tablet Take 81 mg by mouth in the morning. 01/11/2021 Active magnesium oxide (Mag-Ox) 400 mg (241.3 mg magnesium) tablet Take 1 tablet by mouth in the morning, afternoon, and at bedtime. 12/21/2023 Active carvedilol (Coreg) 25 mg tablet Take 25 mg by mouth with breakfast and with evening meal. 01/17/2024 Active levothyroxine (Synthroid, Levoxyl) 125 mcg tablet TAKE 1 TABLET BY MOUTH EVERY MORNING ON AN EMPTY STOMACH 12/21/2023 Active pantoprazole (ProtoNix) 40 mg EC tablet Take 1 tablet by mouth in the morning. Active liothyronine (Cytomel) 5 mcg tablet Take 10 mcg by mouth in the morning. 12/05/2021 Active ferrous sulfate 325 (65 Fe) MG tablet Take 1 tablet by mouth 2 times daily. Active cloNIDine (Catapres) 0.1 mg tablet Take 0.1 mg by mouth if needed each day for high blood pressure. 01/01/2024 Active atorvastatin (Lipitor) 80 mg tablet Take 80 mg by mouth at bedtime. 12/25/2023 Active furosemide (Lasix) 20 mg tablet Take 50 mg by mouth in the morning. Patient is taking 50 mg 1 x per day 12/25/2023 Active allopurinol (Zyloprim) 300 mg tablet Take 100 tablets by mouth in the morning. Active NovoLOG Flexpen U-100 Insulin 100 unit/mL (3 mL) injection pen INJECT 12 UNITS SUBCUTANEOUSLY IN THE MORNING, 16 UNITS at lunch, and 22 UNITS at dinner 06/06/2023 Active insulin detemir (Levemir FlexPen) 100 unit/mL (3 mL) injection pen INJECT 50 UNITS SUBCUTANEOUSLY (under the skin) TWICE DAILY 06/15/2015 Active nitroglycerin (Nitrostat) 0.[address] 1 tablet as needed by sublingual route as directed. 01/27/2024 Active hydrALAZINE (Apresoline) 10 mg tabletIndications: 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 270 tablet 3 02/10/2024 Active insulin degludec (Tresiba FlexTouch U-100) 100 unit/mL (3 mL) injection Inject under the skin at bedtime. Active hydrALAZINE (Apresoline) 25 mg tabletIndications: Benign hypertensive heart disease with heart failure (CMS/HCC) Take 1 tablet (25 mg) by mouth three times daily. 270 tablet 3 05/11/2024 5 Active Additional Information Patient not taking.Reported on 02/25/2025 isosorbide mononitrate ER (Imdur) 120 mg 24 hr tablet Take 120 mg by mouth in the morning. Do not crush or chew. Active hydrALAZINE (Apresoline) 50 mg tabletIndications: Benign hypertensive heart disease with heart failure (CMS/HCC) Take 1 tablet (50 mg) by mouth three times daily. 270 tablet 3 11/27/2024 6 Active diclofenac (Voltaren) 75 mg EC tablet Take 1 tablet by mouth twice a day. Active lisinopril 40 mg tablet Take 40 mg by mouth in the morning. Active ranolazine (Ranexa) 500 mg 12 hr tablet Take 1 tablet by mouth twice a day. Active Active Problems Problem Noted Date Diagnosed Date Contact dermatitis 05/11/2024 Dyspnea 02/10/2024 02/10/2024 Hypertensive urgency 02/10/2024 02/10/2024 Stage 4 chronic kidney disease 01/17/2024 0 02/10/2024 Class 1 obesity in adult 01/15/2022 024 Essential hypertension 05/11/2021 Atherosclerosis of [place] ronary artery of [place] heart without angina pectoris 01/11/2021 02/10/2024 H/O four vessel coronary artery bypass graft 04/202102/10/2024 Paroxysmal atrial fibrillation 01/11/2021 0 02/10/2024 Unstable angina 12/28/2020 02/10/2024 Anemia 05/21/2017 02/10/2024 Arthritis 05/21/2017 02/10/2024 Diabetes mellitus 05/21/2017 02/10/2024 Other hyperlipidemia 05/21/2017 02/10/2024 Disorder of carotid artery 05/21/201702/09 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 01/30/2016 02/10/2024 Acquired hypothyroidism 08/04/2015 02/10/20 24 Encounters Date Type Department Care Team Description 02/25/2025 9:00 AM EDT Office Visit [place] [address] [place] [phone] Carlie Catherine MD LVH (left ventricular hypertrophy); Mitral valve stenosis and aortic valve stenosis from Last 3 Months Social History Tobacco Use Types Packs/Day Years Used Date Smoking Tobacco: Former Cigarettes Smokeless Tobacco: Never Tobacco Cessation:Counseling Given: Not Answered Alcohol Use Standard Drinks/Week Comments Not Currently 0 (1 standard drink = 0.6 oz pur e alcohol) [place] [employer] Answer Date Rec orded [...] Mass Index 31.47 02/25/2025 8:55 AM EDT Plan of Treatment Health Maintenance Due Date Last Done Comments Diabetes: Hemoglobin A1C 1945 Medicare Annual Wellness (AWV) 1944 Diabetes: Retinopathy Screening 1954 Depression Screening 1956 Diabetes: Urine Protein Screening 12/15/1963 Adult Tetanus 1966 Zoster Vaccines (1 of 2) 1994 Fall Risk Screening 2009 COVID-19 Vaccine ( season) 2024 01/24/2021, 12/13/2020 Influenza Vaccine (Season Ended) 2025 07/18/2020, 07/22/2019, 07/20/2019, Additional history exists Pneumococcal Vaccine: 65+ Years Completed 07/15/2017, 08/08/2012, 08/09/2003 HIB Vaccines Aged Out No longer eligi ble based on patient's age to complete this topic HPV Vaccines Aged Out No longer eligi ble based on patient's age to complete this topic IPV Vaccines Aged Out No longer eligi ble based on patient's age to complete this topic Meningococcal B Vaccine Aged Out No l onger eligible based on patient's age to complete this topic Meningococcal Vaccine Aged Out No betsey guicho eligible based on patient's age to complete this topic Rotavirus Vaccines Aged Out No longer eligible based on patient's age to complete this topic Care Teams Livestock Judging Coach Relationship Specialty Start Date End Date Merrick Rubi MD [address] [place] [address] PCP - General 01/22/24
--- OUTSIDE RECORDS SUMMARY | 2025-03-03 15:19 | XMS_ITS | Referral Summary ---
Author Organization [facility] Address [address] [place] [address] Care Team Providers Care Carpenters Supervisor Name Role Phone Merrick Rubi MD Primary Care Provider [phone] Encounters Date Type Department Care Team Description 02/25/2025 9:00 AM EDT Office Visit [facility] [place] [address] [place] [address] Carlie Catherine MD LVH (left ventricular hypertrophy); Mitral valve stenosis and aortic valve stenosis from Last 3 Months Allergies Active Allergy Reactions Criticality Noted Date [...] three times daily. 270 tablet 3 05/11/2024 Active Additional Information Patient not taking.Reported on 02/25/2025 isosorbide mononitrate ER (Imdur) 120 mg 24 hr tablet Take 120 mg by mouth in the morning. Do not crush or chew. Active hydrALAZINE (Apresoline) 50 mg tabletIndications: Benign hypertensive heart disease with heart failure (CMS/HCC) Take 1 tablet (50 mg) by mouth three times daily. 270 tablet 3 11/27/2024 Active diclofenac (Voltaren) 75 mg EC tablet [...] 01/15/2022 024 Essential hypertension 05/11/2021 Atherosclerosis of [place] ronary artery of [place] heart without angina pectoris 01/11/2021 02/10/2024 H/O four vessel coronary artery bypass graft 04/202102/10/2024 Paroxysmal atrial fibrillation 01/11/2021 0 02/10/2024 Unstable angina 12/28/2020 02/10/2024 Anemia 05/21/2017 02/10/2024 Arthritis 05/21/2017 02/10/2024 Diabetes mellitus 05/21/2017 02/10/2024 Other hyperlipidemia 05/21/2017 02/10/2024 Disorder of carotid artery 05/21/201702/09 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
--- OUTSIDE RECORDS SUMMARY | 2025-03-03 15:19 | XMS_ITS | Encounter Summary ---
Author Organization [facility] Address [facility]-[id number] [address] [place] [address] Care Team Providers Care Elementary Art Teacher Name Role Phone Merrick Rubi MD Primary Care Provider [phone] Encounter Details Date Type Department Care Team (Late st Contact Info) Description 01/10/2022 Orders Only [facility] [address] [place] [phone] External, Scanning Provider Social History Tobacco Use [...] often do you attend chur ch or yazidi services? More than 4 times per year 12/28/2020 Do you belong to any clubs o r organizations such as rastafari groups, unions, fraternal or athletic groups, or [...] Answer Date Recorded Total Score 0 12/28/2020 [facility] Health - Occupational [...] Recorded Do you need help finding a [facility] career center and/or a training program? [...] Exposure Response Date Recorded In the last 10 days, have yo u been in contact with someone who was confirmed or suspected to have Coronavirus/COVID-19? No / Unsure 01/09/2022 9:31 AM EDT documented as of this encounter Plan [...] Procedure Name Priority Date/Time Associated Diagnosis Comments MULTIPLE LABS Routine 11/01/2021 LIPID PROFILE Routine 11/01/2021 documented in this encounter Results * Lipid profile (11/01/2021) External Cholesterol 186 MANUALLY TRANSCRIBED RESULTS External Cholesterol:Hdl 3.7 MANUALLY TRANSCRIBED RESULTS External Hdl Cholesterol 50 MANUALLY TRANSCRIBED RESULTS External Ldl (Calc) 82 MANUALLY TRANSCRIBED RESULTS External Triglycerides 266 MANUALLY TRANSCRIBED RESULTS External Very Low Lipoprotein 53 MANUALLY TRANSCRIBED RESULTS us Scanning Provider External LAB BLOOD ORDERABLES Edited Result - Final MANUALLY TRANSCRIBED RESULTS * Multiple labs (11/01/2021) us Scanning Provider External [place] [facility] Final Result Performing Organization Address City/[facility]/ZIP Co de Phone Number MANUALLY TRANSCRIBED RESULTS documented in this encounter Visit Diagnoses Not on filedocumented in this encounter Additional Health Concerns Assessment Noted Time PHQ-9 Depression Total Score: 0 12/29/19 21 3:16 PM EDT documented as of this encounter Care Teams Elementary Art Teacher Relationship Specialty Start Date End Date Merrick Rubi MD PCP - General Family Medicine 10/20/20 documented as of this encounter
--- OUTSIDE RECORDS SUMMARY | 2025-03-03 15:19 | XMS_ITS | Clinical Summary ---
Author Organization [facility] tem Address [id number] [address] [place] [address] Care Team Providers Care Human Resources Benefits Administrator Name Role Phone Merrick Rubi MD Primary Care Provider [phone] Allergies Active Allergy Reactions Criticality Noted Date Comments Amlodipine Rash High 03/28/2005 NORVASC Amoxicillin-Pot Clavulanate Rash Low 11/23/19 21 AUGMENTIN Doxazosin 11/23/2020 Iodinated Contrast Media 11/23/2020 Sulfamethoxazole-Trimethoprim Rash Low 2020 BACTRIM Medications ferrous sulfate 325 (65 FE) mg tablet Take 1 tablet (325 mg total) by mouth in the morning and 1 tablet (325 mg total) before bedtime. Active insulin aspart (NOVOLOG FLEXPEN U-100 INSULIN SUBQ) Inject under the skin. 10 UNITS BEFORE BREAKFAST, 15 UNITS BEFORE LUNCH, 20 UNITS BEFORE DINNER Active levothyroxine (SYNTHROID, LEVOTHROID) 125 MCG tablet Take 1 tablet (125 mcg total) by mouth in the morning. Active insulin detemir U-100 (LEVEMIR) 100 unit/mL injection Inject 30 units in the morning and 25 units at night - closely monitor blood sugars and follow up with your PCP in 1-2 weeks 1 [address] 12 Active Additional Information Patient taking differently: Inject 50 units in the morning and 50 units at night- closely monitor blood sugars and follow up with your PCP in 1-2 weeks, Reported on 01/15/2022 acetaminophen (TYLENOL) 500 mg tablet Take 1 tablet (500 mg total) by mouth every 6 (six) hours as needed for pain. Active aspirin 81 mgIndications:Hy pertensive urgency,Shortnes s of breath,H/O four vessel coronary artery bypass graft,Atheroscle rosis of [place] coronary artery of [place] heart without angina pectoris,Paroxys mal atrial fibrillation (CMS-HCC),Locali zed edema Take 1 tablet (81 mg total) by mouth daily. 90 tablet 3 1 Active pantoprazole (PROTONIX) 40 mg EC tablet Take 1 tablet (40 mg total) by mouth in the morning. 1 Active allopurinoL (ZYLOPRIM) 300 mg tablet Take 1 tablet (300 mg total) by mouth in the morning. Active liothyronine (CYTOMEL) 5 MCG tablet Take 2 tablets (10 mcg total) by mouth in the morning. 2 Active lisinopriL (PRINIVIL,ZESTRI L) 20 mg tablet Take 1 tablet (20 mg total) by mouth in the morning. 4 Active carvediloL (COREG) 25 mg tabletIndication s:Paroxysmal atrial fibrillation (CMS-HCC),H/O four vessel coronary artery bypass graft,Hypertensi ve urgency,Shortnes s of breath,Localized edema Take 2 tablets (50 mg total) by mouth in the morning and 2 tablets (50 mg total) before bedtime. 180 tablet 3 4 Active isosorbide mononitrate (IMDUR) 30 mg 24 hr tablet Take 1 tablet (30 mg total) by mouth daily. 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 01/17/2024 Other hyperlipidemia 01/15/2022 Class 1 obesity in adult 01/15/2022 Obesity (BMI 30-39.9) 05/11/2021 Essential hypertension 05/11/2021 Obesity (BMI 30-39.9) 01/11/2021 H/O four vessel coronary artery bypass graft 04/2021 Paroxysmal atrial fibrillation 01/11/2021 Atherosclerosis of [place] co ronary artery of [place] heart without angina pectoris 01/11/2021 Unstable angina 12/28/2020 Diabetes mellitus Hypertensive urgency Arthritis Dyspnea Other forms of angina pectoris Encounters Date Type Department Care Team Description 12/21/2024 Telephone [facility] [address] [place] [address] Cary Goldman CMA 12/12/2024 Refill [facility] [address] [facility] [address] [address] [place] [phone] Cristina Salamanca, [employer]VISUAL STYLIST Med Refill 12/12/2024 Refill [facility] [address] [place] [phone] Marck Lazo, [employer] STYLIST Med Refill from Last 3 Months Immunizations Immunization Administration Dates Next Due Influenza High Dose Preserva tive Free IM 07/08/2017,07/25/2016,07/11/2015 Influenza, Im Trivalent Preservative 07/16/2014, 07/10/2013 Influenza, Trivalent, Adjuvanted 07/18/2020,07/07,07/14/2018 Influenza, Unspecified 08/08/2012,2010,08/15/2010,07/26,08/04/2008,08/13/2007,08/11/2004 ,08/09/2003 Pneumococcal Conjugate 13-Valent 07/15/2017 Pneumococcal Polysaccharide 08/08/2012, 3 Family History Medical History Relation Name Comments Heart attack Brother 1 Heart attack Brother 2 Cancer Father Diabetes Father Diabetes Mother Heart attack Mother Heart failure Mother Hyperlipidemia Mother Hypertension Mother Heart attack Sister Relation Name Status Comments Brother 1 Brother 2 Father Mother Sister Social History Tobacco Use Types Packs/Day Years [...] often do you attend chur ch or mu-ism services? More than 4 times per year 12/28/2020 Do you belong to any clubs o r organizations such as yazidi groups, unions, fraternal or athletic groups, or [...] Answer Date Recorded Total Score 0 12/28/2020 [facility] - Occupational [...] Recorded Do you need help finding a [facility] career [facility] and/or a training program? [...] Sign Reading Time Taken Comments Blood Pressure 180/70 01/17/2024 12:56 PM EDT Pulse 60 01/17/2024 12:56 PM EDT Temperature 36.7 C (98.1 F) 01/18/2021 9:19 AM EDT Respiratory Rate 11 01/18/2021 11:30 AM EDT Oxygen Saturation 98% 01/17/2024 12:56 PM EDT Inhaled Oxygen Concentration - - Weight 85.7 kg (189 lb) 01/17/2024 12:56 PM EDT Height 168.9 cm (5' 6.5 ) 01/17/2024 12:56 PM ED T Body Mass Index 30.05 01/17/2024 12:56 PM EDT Plan of Treatment Health Maintenance Due Date Last Done Comments Depression Screening 1957 DTaP,Tdap and Td Vaccines (1 - Tdap) 12/15/1963 Zoster (Shingles) Vaccine (1 of 2) 1994 Fall Risk Screening 2009 COVID-19 Vaccine (2023-2 5 season) 2024 01/24/2021, 12/13/2020 Tobacco Screening 01/16/2025 01/17/2024 Influenza Vaccine 06/07/2025 07/18/2020, , 07/14/2018, Additional history exists Goals Goal Patient Goal Type Associated Problems Recent Progress Patient-Stated? Author <enter goal here> General Yes Dione Mason LSW Note: Evaluation of progress towards goal: return home with homecare and support from [facility], children and grandchildren Medical Devices Not on file Insurance [employer] MEDICARE Advance Directives * Full Code (Latest Code Status on File) Date Activated Date Inactivated Comments 12/28/2020 2:33 PM 01/03/2021 7:38 PM Care Teams Human Resources Benefits Administrator Relationship Specialty Start Date End Date Merrick Rubi MD PCP - General Family Medicine 10/20/20
--- OUTSIDE RECORDS SUMMARY | 2025-03-03 15:19 | XMS_ITS | Clinical Summary ---
Author Organization [facility] Healthcare Address [address] [place] [address] Care Team Providers Care Route Delivery Supervisor Name Role Phone Merrick Rubi MD Primary Care Provider [phone] Allergies Active Allergy Reactions Criticality Noted Date Comments Amlodipine Unknown 03/12/2023 Amoxicillin Unknown 03/12/2023 Amoxicillin-Pot Clavulanate Unknown 03/12/20 Doxazosin Unknown 03/12/2023 Iodinated Contrast Media Other 06/15/2024 Sulfamethoxazole Unknown 03/12/2023 Trimethoprim Unknown 03/12/2023 Medications minocycline 100 MG capsule 1 capsule every 12 (twelve) hours Active lisinopril 40 MG tablet Active hydrocortisone (Anusol-HC) 25 MG suppository Active allopurinol (Zyloprim) 100 MG tablet Active PANTOPRAZOLE SODIUM PO Active MAGNESIUM PO Active HYDROCHLOROTHIAZI DE PO Active labetalol (Normodyne) 200 MG tablet Take 2 tablets by mouth in the morning and 2 tablets before bedtime. Active carvedilol (Coreg) 25 MG tablet Take 1 tablet by mouth in the morning and 1 tablet in the evening. Take with meals. Active atorvastatin (Lipitor) 80 MG tablet Take 1 tablet by mouth at bedtime Active aspirin 81 MG EC tablet Take 81 mg by mouth Daily Active multivitamin-iron -minerals-folic acid (Centrum) chewable tablet Chew 1 tablet Daily Active betamethasone dipropionate 0.05 % creamIndications: Granuloma annulare Apply to affected areas, up to twice a day when flared, do not use one the face, groin, or underarms, 30 day supply 45 g 11 4 Active insulin aspart (NovoLOG FLEXPEN) 100 UNIT/ML pen Inject 10-15 Units under the skin in the morning and 10-15 Units at noon and 10-15 Units in the evening. Inject with meals. 10-12-15 according to meal size (plus sliding scale ISS #2) expect up to 80 Units total daily use. 4 Active levothyroxine (Synthroid, Levoxyl) 150 MCG tablet Take 2 tablets by mouth in the morning. Take before meals. Active liothyronine (Cytomel) 5 MCG tablet Take 1 tablet by mouth Daily Active alendronate (Fosamax) 70 MG tablet Take 1 tablet by mouth every 7 (seven) days Take in the morning with a full glass of water, on an empty stomach, and do not take anything else by mouth or lie down for the next 30 min. Active ranolazine (Ranexa) 500 MG 12 hr tablet Take 1 tablet by mouth in the morning and 1 tablet before bedtime. Do not crush, chew, or split. Active diclofenac (Voltaren) 75 MG EC tablet Take 1 tablet by mouth in the morning and 1 tablet before bedtime. Do not crush, chew, or split. Active cloNIDine (Catapres) 0.1 MG tablet Take 0.1 mg by mouth if needed for high blood pressure Active Active Problems No known active problems Encounters Date Type Department Care Team Description 02/15/2025 9:40 AM EDT Office Visit [facility] [address] [place] [address] Lorraine Pope MD Type 2 diabetes mellitus with hyperglycemia, with long-term 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 (CMS/HCC) (Primary Dx); Vitamin D deficiency; Microalbuminuria; Hyperlipemia, mixed (CMS/HCC); Primary hypertension (CMS/HCC); Insulin long-term use (CMS/HCC); 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CMS/HCC); Encounter for dietary consultation; Chronic renal disease, stage IV (CMS/HCC) 02/15/2025 Bamboo flowsheet [facility] [address] [place] [address] Lorraine Pope MD from Last 3 Months Immunizations Immunization Administration Dates Next Due Influenza, High Dose Seasona l, Preservative Free 07/08/2017,07/25/2016,07/11/2015 Influenza, Unspecified 08/08/2012,2010,08/15/2010,07/26,08/04/2008,08/13/2007,08/11/2004 ,08/09/2003 Influenza, injectable, quadr ivalent, preservative free 07/20/2019 Influenza, seasonal, injectable 07/16/2014,07/10 Influenza, trivalent, adjuvanted 07/18/2020,07/07,07/14/2018 Pneumococcal Conjugate PCV 13 07/15/2017 Pneumococcal Polysaccharide PPSV23 08/08/2012, Unknown outside immunization 07/10/2022,07/20/20 21 Family History Medical History Relation Name Comments Cancer Father Heart disease Mother mm Sister Melanoma Neg Hx Relation Name Status Comments Daughter x 2 Alive Father Mother Sister Son x 1 Alive Social History Tobacco Use Types Packs/Day Years Used Date Smoking Tobacco: Former Cigarettes Smokeless Tobacco: Never Tobacco Cessation:Counseling Given: Not Answered Alcohol Use Standard Drinks/Week Comments Not Asked 0 (1 standard drink = 0.6 oz pure alcohol) caffeine intake: 1-2 cups per day Comments Unknown Sex and Gender Information Value Date Recorded Sex Assigned at Not on file Legal Sex Female 6:48 PM EDT Gender Identity Not on file Sexual Orientation Not on file Last Filed Vital Signs Vital Sign Reading Time Taken Comments Blood Pressure 132/62 02/15/2025 9:51 AM EDT Pulse 63 02/15/2025 9:51 AM EDT Temperature - - Respiratory Rate 16 02/15/2025 9:51 AM EDT Oxygen Saturation 97% 02/15/2025 9:51 AM EDT Inhaled Oxygen Concentration - - Weight 88.5 kg (195 lb) 02/15/2025 9:51 AM EDT Height 168.9 cm (5' 6.5 ) 02/15/2025 9:51 AM EDT Body Mass Index 31 02/15/2025 9:51 AM EDT Plan of Treatment Upcoming Encounters Date Type Department Care Team (Late st Contact Info) Description 03/16/2025 8:35 AM EDT Office Visit [facility] [address] [place] [phone] Lavonne Longoria MD [address] [place] [address] 06/14/2025 10:10 AM EDT Office Visit [facility] [address] [place] [address] Lorraine Pope MD [address] [place] [address] Health Maintenance Due Date Last Done Comments Influenza Vaccine (Season Ended) 2025 07/18/2020, 07/22/2019, 07/20/2019, Additional history exists Pneumococcal Vaccine: 65+ Years Completed 07/15/2017, 08/08/2012, 08/09/2003 Procedures Procedure Name Priority Date/Time Associated Diagnosis Comments POCT GLYCOSYLATED HEMOGLOBIN (HGB A1C) Routine 02/15/2025 9:53 AM EDT Type 2 diabetes mellitus with hyperglycemia, with long-term 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 ([facility]) POCT GLUCOSE Routine 02/15/2025 9:53 AM EDT Type 2 diabetes mellitus with hyperglycemia, with long-term 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 ([facility]) from Last 3 Months Results * POCT glycosylated hemoglobin (Hb A1C) docked device (02/15/2025 9:53 AM EDT) Hemoglobin A1C 6.6 Blood Venous blood specimen / Unknown 02/15/2025 9:53 AM EDT Lorraine Pope MD POINT OF CARE TEST ENTER/EDIT ORDERABLES Final Result * POCT glucose manually resulted (02/15/2025 9:53 AM EDT) Glucose Blood, POC 238 mg/dL Blood Capillary blood specimen / Unknown 02/15/2025 9:53 AM EDT Lorraine Pope MD POINT OF CARE TEST ENTER/EDIT ORDERABLES Final Result from Last 3 Months Insurance [employer] MEDICARE ADVANTAGE Care Teams Route Delivery Supervisor Relationship Specialty Start Date End Date Merrick Rubi MD PCP - General Family Medicine 10/22/23
--- OUTSIDE RECORDS SUMMARY | 2025-03-03 15:19 | XMS_ITS | Encounter Summary ---
Author Organization [facility] Address [id number] [address] [place] [address] Care Team Providers Care Salt Plant Operator Name Role Phone Merrick Rubi MD Primary Care Provider [phone] Encounter Details Date Type Department Care Team (Late st Contact Info) Description 07/08/2023 Orders Only [facility] [address] [place] [phone] External, Scanning Provider Social History Tobacco Use [...] often do you attend chur ch or anglican services? More than 4 times per year 12/28/2020 Do you belong to any clubs o r organizations such as mu-ism groups, unions, fraternal or athletic groups, or [...] Answer Date Recorded Total Score 0 12/28/2020 [facility] - Occupational [...] Recorded Do you need help finding a [facility] career center and/or a training program? No 12/28/2020 Hunger Screening Answer Date Recorded Within the past 12 months we worried whether our food would run out before we got money to buy more. Never True 03/19/2023 Within the past 12 months th e food we bought just didn't last and we didn't have money to get more. Never True 03/19/2023 Purpose - Life Answer Date Recorded I [...] Patient-Stated? Author <enter goal here> General Yes Spoonmore, Dione, MACHINE PACKAGER Note: Evaluation of progress towards goal: return home with homecare and support from [facility], children and grandchildren documented as of this encounter Procedures Procedure Name Priority Date/Time Associated Diagnosis Comments MULTIPLE LABS Routine 07/08/2023 LIPID PROFILE Routine 07/08/2023 documented in this encounter Results * Multiple labs (07/08/2023) us Scanning Provider External [facility] Edite d Result - Final Performing Organization Address [facility] Co de Phone Number MANUALLY TRANSCRIBED RESULTS * Lipid profile (07/08/2023) External Cholesterol 155 MANUALLY TRANSCRIBED RESULTS External Cholesterol:Hdl 3.7 MANUALLY TRANSCRIBED RESULTS External Hdl Cholesterol 42 MANUALLY TRANSCRIBED RESULTS External Ldl (Calc) 72 MANUALLY TRANSCRIBED RESULTS External Triglycerides 206 MANUALLY TRANSCRIBED RESULTS External Very Low Lipoprotein 41.2 MANUALLY TRANSCRIBED RESULTS us Scanning Provider External LAB BLOOD ORDERABLES Edited Result - Final Performing Organization Address [facility] Co de Phone Number MANUALLY TRANSCRIBED RESULTS documented in this encounter Visit Diagnoses Not on filedocumented in this encounter Additional Health Concerns Assessment Noted Time PHQ-9 Depression Total Score: 0 12/29/19 21 3:16 PM EDT documented as of this encounter Care Teams Salt Plant Operator Relationship Specialty Start Date End Date Merrick Rubi MD PCP - General Family Medicine 10/20/20 documented as of this encounter
--- NOTE | 2025-03-03 15:20 | XR_ITS ---
[facility] [place] [id number] Patient Name: KYLAH BERGER MRN: [id number] date: 1945 Sex: F Assigned Patient Location: LAB Current Patient Location: LAB Accession/Order Number: [id number] Exam Date: 03/03/2025 16:06 Report Date: 03/03/2025 16:08 At the request of: DHRUV GUTIERRES MD Procedure: XR knee RT 3V 3 views right knee plain film COMPARISON: 12/29/2021 HISTORY: Right medial knee pain for 4 weeks. ACUTE FINDINGS: No acute findings DEGENERATIVE CHANGE: Moderate medial joint space narrowing. The medial femoral subchondral lucency. Potential osteochondral defect. SOFT TISSUE FINDINGS: Unremarkable JOINT EFFUSION: None POSTOP CHANGES: None BONE MINERALIZATION: Adequate XR/XR knee RT 3V IMPRESSION: Marked medial compartment degeneration. Medial femoral condyle lucency which may represent small osteochondral defect. Impression dictated by: Mariusz Hernandez M.D. 03/03/2025 4:08 PM Dictation Location: [place] [address] Electronically authenticated by: [id number] Y Date: 03/03/2025 16:08
--- OUTSIDE RECORDS SUMMARY | 2025-03-03 15:20 | XMS_ITS | Patient Health Record ---
Author Organization The [facility] in [place] Address [address] [place] [address] Care Team Providers Care Shrimper Name Role Phone Jeff Rubi Primary Care Provider DHRUV RUBI Unavailable [phone] Allergies Allergen (clinical drug ingredient) Drug/Non Drug Allergy documented on EMR Reaction Allergy Type Onset Date Status amoxicillin / clavulanate Augmentin Unknown Drug Allergy Active sulfamethoxazole / trimethoprim Bactrim Unknown Drug Allergy Active doxazosin Cardura Unknown Drug Allergy Active amlodipine Norvasc Unknown Drug Allergy Active Results Component Value Reference Range Notes PROF 14(COMP METB) Reviewed date:12/31/2024 08:41:15 PM Interpretation: Performing Lab: Notes/Report: [facility] , Sodium 138 136-145 mmol/L Potassium 4.5 3.5-5.1 mmol/L Chloride 102 98-107 mmol/L Carbon Dioxide 24.6 21.0-32.0 mmol/L Anion Gap 15.9 Glucose 266 74-106 mg/dL Blood Urea Nitrogen 35.0 7.0-18.0 mg/dL Creatinine 1.98 0.55-1.02 mg/dL Estimated GFR ( Shruthi 29 >=60 mL/min/1.73m 2 Estimated GFR (Non- Trang 24 >=60 mL/min/1.73m 2 BUN Creatinine Ratio 17.7 Calcium 9.1 8.5-10.1 mg/dL Bilirubin Total 0.6 0.2-1.0 mg/dL Aspartate Amino Transferase 34 15-37 U/L Alanine Aminotransferase 52 14-59 U/L Alkaline Phosphatase 101 46-116 U/L Total Protein 7.3 6.4-8.2 g/dL Albumin Level 3.5 3.4-5.0 g/dL Globulin 3.8 Albumin Globulin Ratio 0.9 Performing Lab: see note ML - [facility] LB UA RANDOM W or MICROSCOPIC Reviewed date:03/03/2024 03:01:12 PM Interpretation: Performing Lab: Notes/Report: [facility] , Color Urine LT. YELLOW YELLOW Clarity Urine CLEAR CLEAR Specific [place] Urine 1.010 1.005-1.025 pH Urine 6.0 5.0-9.0 Protein Urine NEGATIVE NEG/TRACE mg/dL Glucose Urine UA NEGATIVE NEGATIVE mg/dL Bilirubin Urine NEGATIVE NEGATIVE Ketones Urine NEGATIVE NEGATIVE mg/dL Blood Urine NEGATIVE NEGATIVE Nitrite Urine NEGATIVE NEGATIVE Urobilinogen Urine 0.2 0.2-1.0 EU/dL Leukocyte Esterase Urine NEGATIVE NEGATIVE WBC Urine 0-2 NONE SEEN #/HPF RBC Urine 0-2 0-2 #/HPF Bacteria Urine NONE SEEN NONE SEEN #/HPF Mucus Urine NONE SEEN NONE SEEN Squamous Epithelial Cell Urine FEW NONE/RARE #/LPF Crystals Seen? None Seen None Seen #/HPF Cast Seen? NONE SEEN NONE SEEN #/LPF Urine Culture Indicated ALREADY ORDERED Performing Lab: see note ML - [facility] LB BNP Reviewed date:03/04/2024 12:27:54 PM Interpretation: Performing Lab: Notes/Report: [facility] , NT Pro B Type Natriuretic Pept 726.0 <=1800.0 pg/mL Performing Lab: see note ML - [facility] LB CBC AUTO DIFF Reviewed date:03/04/2024 12:27:54 PM Interpretation: Performing Lab: Notes/Report: [facility] , White Blood Count 6.4 4.0-11.0 10 3/uL Red Blood Count 2.93 4.20-5.40 10 6/uL Hemoglobin 9.0 12.0-16.0 g/dL Hematocrit 26.8 36.0-48.0 % Mean Corpuscular Volume 91.5 81.0-99.0 fL Mean Corpuscular Hemoglobin 30.7 26.7-34.0 pg Mean Corpuscular HGB Conc 33.6 29.9-35.2 g/dL Red Cell Distribution Width 15.0 11.0-15.0 % Platelet Count 184 150-450 10 3/uL Mean Platelet Volume 9.3 9.5-13.5 fL Neutrophils Percent Auto 57.2 43.0-75.0 % Lymphocytes Percent Auto 29.5 20.5-60.0 % Monocytes Percent Auto 9.6 1.7-12.0 % Eosinophils Percent Auto 2.7 0.9-7.0 % Basophils Percent Auto 0.5 0.2-2.0 % Immature Granulocytes Pct Auto 0.5 0.0-0.5 % Neutrophils Absolute Auto 3.7 1.4-6.5 10 3/uL Lymphocytes Absolute Auto 1.9 1.2-3.8 10 3/uL Monocytes Absolute Auto 0.6 0.3-0.8 10 3/uL Eosinophils Absolute Auto 0.2 0.0-0.7 10 3/uL Basophils Absolute Auto 0.0 0.0-0.1 10 3/uL Immature Granulocytes Abs Auto 0.03 0.00-0.03 10 3/uL Performing Lab: see note ML - [facility] LB MAGNESIUM Reviewed date:03/04/2024 12:27:54 PM Interpretation: Performing Lab: Notes/Report: [facility] , Magnesium 1.7 1.8-2.4 mg/dL Performing Lab: see note ML - [facility] LB PROF 14(COMP METB) Reviewed date:03/04/2024 12:27:54 PM Interpretation: Performing Lab: Notes/Report: [facility] , Sodium 133 136-145 mmol/L Potassium 4.4 3.5-5.1 mmol/L Chloride 101 98-107 mmol/L Carbon Dioxide 23.8 21.0-32.0 mmol/L Anion Gap 12.6 Glucose 135 74-106 mg/dL Blood Urea Nitrogen 43.0 7.0-18.0 mg/dL Creatinine 1.90 0.55-1.02 mg/dL Estimated GFR ( Shruthi 31 >=60 Estimated GFR (Non- Trang 26 >=60 BUN Creatinine Ratio 22.6 Calcium 9.0 8.5-10.1 mg/dL Bilirubin Total 0.6 0.2-1.0 mg/dL Aspartate Amino Transferase 17 15-37 U/L Alanine Aminotransferase 24 14-59 U/L Alkaline Phosphatase 82 46-116 U/L Total Protein 6.8 6.4-8.2 g/dL Albumin Level 3.2 3.4-5.0 g/dL Globulin 3.6 Albumin Globulin Ratio 0.9 Performing Lab: see note ML - [facility] LB NM janey perf SPECT rest str Reviewed date:03/04/2024 09:49:34 PM Interpretation: Performing Lab: Notes/Report: Source Facility: [place] [address] Nuclear Medicine Report Signed Patient: KYLAH ROBIN MR#: [id number] : 1945 Acct:[id number] Age/Sex: 78 / F ADM Date: 03/01/24 Loc: ICU 276-[address]: Dhruv Rubi M.D. Ordering Physician: Dhurv Rubi M.D. Date of Service: 03/04/24 Procedure(s): NM janey perf SPECT rest str Accession Number(s): [id number] cc: Dhruv Rubi M.D. Patient Name: KYLAH ROBIN MR#: [id number] : 1945 Exam Date: 03/04/2024 Ordering Doctor: DR Dhruv Rubi . RADIOLOGY REPORT PROCEDURE: NM JANEY PERF SPECT REST STR COMPARISON: None. INDICATIONS: CP/HTN Urgency TECHNIQUE: Exam Description: Stress/Rest one day protocol gated SPECT Rest Imagin.0 mCi Tc-99m Cardiolite IV on 03/04/2024 Stress Imaging 29.9 mCi Tc-99m Cardiolite IV on 03/04/2024 Exercise Protocol: 0.4 mg Lexiscan given IV Heart Rate (bpm): Rest: 67 Max: 85 PMHR: 60 Blood Pressure: Rest: 144/60 Max: 156/58 Symptoms: Rest and peak stress ECG findings were abnormal and the exercise portion of the study was abnormal per attending physician Dr. Latham due to EKG changes. For more details please see separate cardiac stress test report. FINDINGS: QUALITY OF STUDY: Good. PERFUSION DEFECT: LOCATION: Basal inferior. Basal inferolateral. Apical inferior. SIZE: Medium (3-4 segments). SEVERITY: Mild. TYPE: Persistent. WALL MOTION: Normal. LV SIZE: Normal. 78 mL. TID / TCD: None; 0.7 LVEF: Normal. Calculated EF 62%. SUMMARY: Myocardial perfusion imaging study has ABNORMAL findings. CONCLUSION: 1. Small area of mild decreased uptake in the inferior wall extending to the apex on stress images, stable on rest images. 2. No reversible ischemia 3. Abnormal exercise test secondary EKG changes Dictated by: Fabiano Christie MD on 03/04/2024 at 13:35 Approved by: Fabiano Christie MD on 03/04/2024 at 13:37 Dictated By: Fabiano Christie M.D. Signed By: 03/04/24 1339 DD/ 1337 TD/TT: Powertrain Design Engineer: [place] [address] Nuclear Medicine Report Signed Patient: CINDI ROBIN MR#: [id number] : 1945 Acct:[id number] Age/Sex: 78 / F ADM Date: 03/01/24 Loc: ICU 276-[address]: Violeta Rubi M.D. Ordering Physician: Dhruv Rubi M.D. Date of Service: 03/04/24 Procedure(s): NM janey perf SPECT rest str Accession Number(s): [id number] cc: Dhruv Rubi M.D. Patient Name: KYLAH ROBIN MR#: [id number] : 1945 Exam Date: 03/04/2024 Ordering Doctor: DR Dhruv Rubi . RADIOLOGY REPORT PROCEDURE: NM JANEY PE RF SPECT REST STR COMPARISON: None. INDICATIONS: CP/HTN Urgency TECHNIQUE: Exam Description: Stress/Rest one day protocol gated SPECT Rest Imagin.0 m Ci Tc-99m Cardiolite IV on 03/04/2024 Stress Imaging 29.9 mCi Tc-99m Cardiolite IV on 03/04/2024 Exercise Protocol: 0 .4 mg Lexiscan given IV Heart Rate (bpm): Re st: 67 Max: 85 PMHR: 60 Blood Pressure: Rest : 144/60 Max: 156/58 Symptoms: Rest and peak stress ECG findings were abnormal and the exercise portion of the study was abnorm al per attending physician Dr. Latham due to EKG changes. For more de tails please see separate cardiac stress test report. FINDINGS: QUALITY OF STUDY: Good. PERFUSION DEFECT: LOCATION: Basal infe rior. Basal inferolateral. Apical inferior. SIZE: Medium (3-4 segments). SEVERITY: Mild. TYPE: Persistent. WALL MOTION: Normal. LV SIZE: Normal. 78 mL. TID / TCD: None; 0.7 LVEF: Normal. Calcul ated EF 62%. SUMMARY: Myocardial perfusion imaging study has ABNORMAL findings. CONCLUSION: 1. Small area of mil d decreased uptake in the inferior wall extending to the apex on stress image s, stable on rest images. 2. No reversible ischemia 3. Abnormal exercise test secondary EKG changes Dictated by: Fabiano galan MD on 03/04/2024 at 13:35 Approved by: Fabiano galan MD on 03/04/2024 at 13:37 Dictated By: Berhane Christie M.D. Signed By: 03/04/249 DD/ 36 TD/TT: Powertrain Design Engineer: BNP Reviewed date:03/05/2024 10:38:18 PM Interpretation: Performing Lab: Notes/Report: [facility] , NT Pro B Type Natriuretic Pept 667.0 <=1800.0 pg/mL Performing Lab: see note ML - [facility] LB CBC AUTO DIFF Reviewed date:03/05/2024 10:38:18 PM Interpretation: Performing Lab: Notes/Report: [facility] , White Blood Count 6.4 4.0-11.0 10 3/uL Red Blood Count 2.87 4.20-5.40 10 6/uL Hemoglobin 8.8 12.0-16.0 g/dL Hematocrit 26.2 36.0-48.0 % Mean Corpuscular Volume 91.3 81.0-99.0 fL Mean Corpuscular Hemoglobin 30.7 26.7-34.0 pg Mean Corpuscular HGB Conc 33.6 29.9-35.2 g/dL Red Cell Distribution Width 15.2 11.0-15.0 % Platelet Count 190 150-450 10 3/uL Mean Platelet Volume 9.9 9.5-13.5 fL Neutrophils Percent Auto 55.7 43.0-75.0 % Lymphocytes Percent Auto 29.8 20.5-60.0 % Monocytes Percent Auto 11.1 1.7-12.0 % Eosinophils Percent Auto 2.3 0.9-7.0 % Basophils Percent Auto 0.6 0.2-2.0 % Immature Granulocytes Pct Auto 0.5 0.0-0.5 % Neutrophils Absolute Auto 3.6 1.4-6.5 10 3/uL Lymphocytes Absolute Auto 1.9 1.2-3.8 10 3/uL Monocytes Absolute Auto 0.7 0.3-0.8 10 3/uL Eosinophils Absolute Auto 0.2 0.0-0.7 10 3/uL Basophils Absolute Auto 0.0 0.0-0.1 10 3/uL Immature Granulocytes Abs Auto 0.03 0.00-0.03 10 3/uL Performing Lab: see note ML - [facility] LB MAGNESIUM Reviewed date:03/05/2024 10:38:18 PM Interpretation: Performing Lab: Notes/Report: [facility] , Magnesium 1.9 1.8-2.4 mg/dL Performing Lab: see note ML - [facility] LB PROF 14(COMP METB) Reviewed date:03/05/2024 10:38:18 PM Interpretation: Performing Lab: Notes/Report: [facility] , Sodium 134 136-145 mmol/L Potassium 4.1 3.5-5.1 mmol/L Chloride 100 98-107 mmol/L Carbon Dioxide 24.8 21.0-32.0 mmol/L Anion Gap 13.3 Glucose 77 74-106 mg/dL Blood Urea Nitrogen 51.0 7.0-18.0 mg/dL Creatinine 1.92 0.55-1.02 mg/dL Estimated GFR ( Shruthi 31 >=60 Estimated GFR (Non- Trang 25 >=60 BUN Creatinine Ratio 26.6 Calcium 8.9 8.5-10.1 mg/dL Bilirubin Total 0.6 0.2-1.0 mg/dL Aspartate Amino Transferase 29 15-37 U/L Alanine Aminotransferase 35 14-59 U/L Alkaline Phosphatase 82 46-116 U/L Total Protein 6.6 6.4-8.2 g/dL Albumin Level 3.2 3.4-5.0 g/dL Globulin 3.4 Albumin Globulin Ratio 0.9 Performing Lab: see note ML - [facility] LB CBC AUTO DIFF Reviewed date:05/28/2024 11:29:23 AM Interpretation: Performing Lab: Notes/Report: [facility] , White Blood Count 8.0 4.0-11.0 10 3/uL Red Blood Count 3.36 4.20-5.40 10 6/uL Hemoglobin 10.3 12.0-16.0 g/dL Hematocrit 30.2 36.0-48.0 % Mean Corpuscular Volume 89.9 81.0-99.0 fL Mean Corpuscular Hemoglobin 30.7 26.7-34.0 pg Mean Corpuscular HGB Conc 34.1 29.9-35.2 g/dL Red Cell Distribution Width 14.6 11.0-15.0 % Platelet Count 195 150-450 10 3/uL Mean Platelet Volume 9.3 9.5-13.5 fL Neutrophils Percent Auto 65.8 43.0-75.0 % Lymphocytes Percent Auto 22.5 20.5-60.0 % Monocytes Percent Auto 10.1 1.7-12.0 % Eosinophils Percent Auto 0.9 0.9-7.0 % Basophils Percent Auto 0.4 0.2-2.0 % Immature Granulocytes Pct Auto 0.3 0.0-0.5 % Neutrophils Absolute Auto 5.3 1.4-6.5 10 3/uL Lymphocytes Absolute Auto 1.8 1.2-3.8 10 3/uL Monocytes Absolute Auto 0.8 0.3-0.8 10 3/uL Eosinophils Absolute Auto 0.1 0.0-0.7 10 3/uL Basophils Absolute Auto 0.0 0.0-0.1 10 3/uL Immature Granulocytes Abs Auto 0.02 0.00-0.03 10 3/uL Performing Lab: see note ML - [facility] LB UA RANDOM W or MICROSCOPIC Reviewed date:05/28/2024 11:29:23 AM Interpretation: Performing Lab: Notes/Report: [facility] , Color Urine LT. YELLOW YELLOW Clarity Urine CLEAR CLEAR Specific [place] Urine 1.015 1.005-1.025 pH Urine 6.5 5.0-9.0 Protein Urine 100 NEG/TRACE mg/dL Glucose Urine UA NEGATIVE NEGATIVE mg/dL Bilirubin Urine NEGATIVE NEGATIVE Ketones Urine NEGATIVE NEGATIVE mg/dL Blood Urine NEGATIVE NEGATIVE Nitrite Urine NEGATIVE NEGATIVE Urobilinogen Urine 0.2 0.2-1.0 EU/dL Leukocyte Esterase Urine NEGATIVE NEGATIVE WBC Urine 0-2 NONE SEEN #/HPF RBC Urine NONE SEEN 0-2 #/HPF Bacteria Urine NONE SEEN NONE SEEN #/HPF Mucus Urine NONE SEEN NONE SEEN Squamous Epithelial Cell Urine MODERATE NONE/RARE #/LPF Urine Culture Indicated ALREADY ORDERED Performing Lab: see note ML - [facility] IRON AND TIBC Reviewed date:06/09/2024 08:59:57 PM Interpretation: Performing Lab: Notes/Report: [facility] , Iron 65.0 50.0-170.0 ug/dL Total Iron Binding Capacity 186.0 250.0-450.0 ug/dL Percent Iron Saturation 34.9 Performing Lab: see note ML - [facility] MAGNESIUM Reviewed date:06/09/2024 08:59:57 PM Interpretation: Performing Lab: Notes/Report: [facility] , Magnesium 1.7 1.8-2.4 mg/dL Performing Lab: see note - [facility] RENAL FUNCTION PANEL Reviewed date:06/09/2024 08:59:57 PM Interpretation: Performing Lab: Notes/Report: [facility] , Sodium 135 136-145 mmol/L Potassium 4.3 3.5-5.1 mmol/L Chloride 100 98-107 mmol/L Carbon Dioxide 21.9 21.0-32.0 mmol/L Anion Gap 17.4 Glucose 409 74-106 mg/dL Blood Urea Nitrogen 53.0 7.0-18.0 mg/dL Creatinine 1.92 0.55-1.02 mg/dL Estimated GFR ( Shruthi 31 >=60 Estimated GFR (Non- Trang 25 >=60 BUN Creatinine Ratio 27.6 Calcium 8.8 8.5-10.1 mg/dL Phosphorus 3.8 2.6-4.7 mg/dL Albumin Level 2.9 3.4-5.0 g/dL Performing Lab: see note ML - [facility] LB URIC ACID SERUM Reviewed date:06/09/2024 08:59:57 PM Interpretation: Performing Lab: Notes/Report: [facility] , Uric Acid 3.9 2.6-6.0 mg/dL Performing Lab: see note [facility] PTH, Intact Reviewed date:06/10/2024 07:36:23 PM Interpretation: Performing Lab: Notes/Report: [facility] , PTH, Intact 62 15-65 pg/mL Performed at: - [facility] [address] [id number] [employer]: Ashok Benson PhD, Phone: [phone] Performing Lab: see note - [facility] LB XR DEXA axial skeleton Reviewed date:06/10/2024 07:36:23 PM Interpretation: Performing Lab: Notes/Report: Source Facility: [place] [address] XRay Report Signed Patient: KYLAH ROBIN MR#: [id number] : 1945 Acct:[id number] Age/Sex: 78 / F ADM Date: 06/10/24 Loc: LORE Attending Dr: Dhruv Rubi M.D. Ordering Physician: Dhruv Rubi M.D. Date of Service: 06/10/24 Procedure(s): XR DEXA axial skeleton Accession Number(s): [id number] cc: Dhruv Rubi M.D. [place] [id number] Patient Name: KYLAH ROBIN MRN: [facility]:[id number] date: 1945 Sex: F Assigned Patient Location: [facility] Current Patient Location: [facility] Accession/Order Number: [id number] Exam Date: 06/10/2024 08:44 Report Date: 06/10/2024 10:29 At the request of: DHRUV RUBI Procedure: XR DEXA axial skeleton EXAMINATION: XR DEXA axial skeleton HISTORY: age related osteoporosis without current fracture COMPARISON: DEXA bone densitometry 03/04/2019 TECHNIQUE: Dual-energy X-ray absorptiometry (DXA) was performed. FINDINGS: SPINE ANALYSIS: Average bone mineral density is 1.186 g/cm2. T-score (standard deviation relative to young adult mean): -0.1 . +6.2% change since prior study HIP ANALYSIS: Lowest bone mineral density is within the left femoral neck, 0.834 g/cm2. T-score (standard deviation relative to young adult mean): -1.5 . +8.8% change since prior study. XR/XR DEXA axial skeleton IMPRESSION: World Health Organization Classification: Osteopenia - Moderate Fracture Risk FRAX: Cannot calculate. Pharmacologic treatment recommendations * No uniform recommendation applies to all patients. Management plans must be individualized. * Consider initiating pharmacologic treatment in postmenopausal women and men >= 50 years of age who have the following: Primary fracture prevention: * T-score <= - 2.5 at the femoral neck, total hip, lumbar spine, 33% radius (some uncertainty with existing data) by DXA. * Low bone mass (osteopenia: T-score between - 1.0 and - 2.5) at the femoral neck or total hip by DXA with a 10-year hip fracture risk >= 3% or a 10-year major osteoporosis-related fracture risk >= 20% (i.e., clinical vertebral, hip, forearm, or proximal humerus) based on the US-adapted FRAXregistered model. Secondary fracture prevention: * Fracture of the hip or vertebra regardless of BMD [4, 5]. * Fracture of proximal humerus, pelvis, or distal forearm in persons with low bone mass (osteopenia: T-score between - 1.0 and - 2.5). The decision to treat should be individualized in persons with a fracture of the proximal humerus, pelvis, or distal forearm who do not have osteopenia or low BMD [12, 13]. Cristel MS, Giovanni SL, Terrie KL, Lacey EM, Tramaine KG, AJ, Jovita ES. The clinician's guide to prevention and treatment of osteoporosis. Osteoporos Int. 2021;33(10):4069-6120. doi: 10.1007/i86177-919-84166-r. Epub 2021Feb 01. Erratum in: Osteoporos Int. 2021May 03;: PMID: [id number]; PMCID: [id number]. Electronically authenticated by: JAIRO KIM Date: 06/10/2024 10:29 Dictated By: Jairo Kim M.D. Signed By: 06/10/24 1032 DD/ 1029 TD/TT: Powertrain Design Engineer: [place] [address] XRay Report Signed Patient: CINDI ROBIN MR#: [id number] : 1945 Acct:[id number] Age/Sex: 78 / F ADM Date: 06/10/24 Loc: LORE Attending Dr: Violeta Rubi M.D. Ordering Physician: Dhruv Rubi M.D. Date of Service: 06/10/24 Procedure(s): XR DEX A axial skeleton Accession Number(s): [id number] cc: Dhruv Rubi M.D. [place] [id number] Patient Name: KYLAH ROBIN MRN: [facility]:[id number] date: 1945 Sex: F Assigned Patient Location: RAD Current Patient Loca tion: RAD Accession/Order Numb er: [id number] Exam Date: 06/10/2024 08:44 Report Date: 06/10/2024 10:29 At the request of: DHRUV RUBI Procedure: XR DEXA a xial skeleton EXAMINATION: XR DEXA axial skeleton HISTORY: age related osteoporosis without current fracture COMPARISON: DEXA bon e densitometry 03/04/2019 TECHNIQUE: Dual-ener gy X-ray absorptiometry (DXA) was performed. FINDINGS: SPINE ANALYSIS: Average bone mineral density is 1.186 g/cm2. T-score (standard deviation relative to young adult mean): -0.1 . +6.2% change since p rior study HIP ANALYSIS: Lowest bone mineral density is within the left femoral neck, 0.834 g/cm2. T-score (standard deviation relative to young adult mean): -1.5 . +8.8% change since p rior study. X R/XR DEXA axial skeleton IMPRESSION: World Health Organiz ation Classification: Osteopenia - Moderate Fracture Risk FRAX: Cannot calculate. Pharmacologic treatm ent recommendations * No uniform recommendation applies to all patients. Management plans must be individualized. * Consider initiatin g pharmacologic treatment in postmenopausal women and men >= 50 years of age w ho have the following: Primary fracture prevention: * T-score <= - 2.5 a t the femoral neck, total hip, lumbar spine, 33% radius (some uncertainty wi th existing data) by DXA. * Low bone mass (osteopenia: T-score between - 1.0 and - 2.5) at the femoral neck or total hip by DXA with a 10-year hip fracture risk >= 3% or a 10-year major osteoporosis-related fracture risk >= 20% (i.e., clinical vertebral, hip, forearm, or proximal humerus) based on the US-adapted FRAXregistered model. Secondary fracture prevention: * Fracture of the hi p or vertebra regardless of BMD [4, 5]. * Fracture of proxim al humerus, pelvis, or distal forearm in persons with low bone mass (osteopeni a: T-score between - 1.0 and - 2.5). The decision to treat should be individual ized in persons with a fracture of the proximal humerus, pelvis, or distal fo rearm who do not have osteopenia or low BMD [12, 13]. Cristel MS, Giovanni SL, Terrie KL, Lacey EM, Tramaine KG, AJ, Jovita ES. The clinician's guid e to prevention and treatment of osteoporosis. Osteoporos Int. 2021;33(10):7675-1434. doi: 10.1007/m03492-544-45051- y. Epub 2021Feb 01. Erratum in: Osteoporos Int. 2021May 03;: PMID: [id number]; PMCID: [id number]. Electronically authenticated by: JAIRO KIM Date: 06/10/2024 10:29 Dictated By: Jairo Kim M.D. Signed By: 06/10/24 1032 DD/ 1029 TD/TT: Powertrain Design Engineer: MAGNESIUM Reviewed date:09/01/2024 06:04:15 PM Interpretation: Performing Lab: Notes/Report: [facility] , Magnesium 1.9 1.8-2.4 mg/dL Performing Lab: see note ML - [facility] LB RENAL FUNCTION PANEL Reviewed date:09/01/2024 06:04:15 PM Interpretation: Performing Lab: Notes/Report: [facility] , Sodium 136 136-145 mmol/L Potassium 3.9 3.5-5.1 mmol/L Chloride 103 98-107 mmol/L Carbon Dioxide 23.8 21.0-32.0 mmol/L Anion Gap 13.1 Glucose 123 74-106 mg/dL Blood Urea Nitrogen 44.0 7.0-18.0 mg/dL Creatinine 1.82 0.55-1.02 mg/dL Estimated GFR ( Shruthi 32 >=60 mL/min/1.73m 2 Estimated GFR (Non- Trang 27 >=60 mL/min/1.73m 2 BUN Creatinine Ratio 24.2 Calcium 8.7 8.5-10.1 mg/dL Phosphorus 3.7 2.6-4.7 mg/dL Albumin Level 2.9 3.4-5.0 g/dL Performing Lab: see note ML - [facility] LB URIC ACID SERUM Reviewed date:09/01/2024 06:04:15 PM Interpretation: Performing Lab: Notes/Report: [facility] , Uric Acid 4.2 2.6-6.0 mg/dL Performing Lab: see note ML - [facility] LB UA RANDOM W or MICROSCOPIC Reviewed date:09/06/2024 12:29:49 PM Interpretation: Performing Lab: Notes/Report: [facility] , Color Urine DK. ORANGE YELLOW Clarity Urine CLEAR CLEAR Specific [place] Urine 1.010 1.005-1.025 pH Urine COLOR INTERFERENCE 5.0-9.0 Protein Urine COLOR INTERFERENCE NEG/TRACE mg/dL Glucose Urine UA COLOR INTERFERENCE NEGATIVE mg/dL Bilirubin Urine COLOR INTERFERENCE NEGATIVE Ketones Urine COLOR INTERFERENCE NEGATIVE mg/dL Blood Urine COLOR INTERFERENCE NEGATIVE Nitrite Urine COLOR INTERFERENCE NEGATIVE Urobilinogen Urine COLOR INTERFERENCE 0.2-1.0 EU/dL Leukocyte Esterase Urine COLOR INTERFERENCE NEGATIVE WBC Urine 20-50 NONE SEEN #/HPF RBC Urine 2-5 0-2 #/HPF Bacteria Urine SMALL NONE SEEN #/HPF Mucus Urine TRACE NONE SEEN Squamous Epithelial Cell Urine MODERATE NONE/RARE #/LPF Crystals Seen? None Seen None Seen #/HPF Cast Seen? SEEN NONE SEEN #/LPF Hyaline Casts Urine RARE Urine Culture Indicated ALREADY ORDERED Performing Lab: see note ML - [facility] LB Urine Culture, Routine Reviewed date:09/08/2024 09:03:21 PM Interpretation: Performing Lab: Notes/Report: [facility] , Urine Culture, Routine See Below For Report Urine Culture, Routine Organism: Gram negative martin : O:ESCCOL Isolated O:GNR Isolated Organism: 1.1 Antibiotic Interpretation AIDEN Status Urine Culture, Routine *ABNORMAL* Urine Culture, Routine Organism: Gram negative martin : O:ESCCOL Isolated O:GNR Isolated Organism: 1.1 Antibiotic Interpretation AIDEN Status Urine Culture, Routine 10,000-25,000 col kendall forming units per mL Urine Culture, Routine Organism: Gram negative martin : O:ESCCOL Isolated O:GNR Isolated Organism: 1.1 Antibiotic Interpretation AIDEN Status Urine Culture, Routine Gram negative martin Urine Culture, Routine Organism: Gram negative martin : O:ESCCOL Isolated O:GNR Isolated Organism: 1.1 Antibiotic Interpretation AIDEN Status Urine Culture, Routine Organism: Escheri herbert coli : Urine Culture, Routine Organism: Gram negative martin : O:ESCCOL Isolated O:GNR Isolated Organism: 1.1 Antibiotic Interpretation AIDEN Status Urine Culture, Routine *ABNORMAL* Urine Culture, Routine Organism: Gram negative martin : O:ESCCOL Isolated O:GNR Isolated Organism: 1.1 Antibiotic Interpretation AIDEN Status Urine Culture, Routine Identified by an automated biochemical system. Urine Culture, Routine Organism: Gram negative martin : O:ESCCOL Isolated O:GNR Isolated Organism: 1.1 Antibiotic Interpretation AIDEN Status Urine Culture, Routine Multi-Drug Resist ant Organism Urine Culture, Routine Organism: Gram negative martin : O:ESCCOL Isolated O:GNR Isolated Organism: 1.1 Antibiotic Interpretation AIDEN Status Urine Culture, Routine Susceptibility pr ofile is consistent with a probable Urine Culture, Routine Organism: Gram negative martin : O:ESCCOL Isolated O:GNR Isolated Organism: 1.1 Antibiotic Interpretation AIDEN Status Urine Culture, Routine ESBL. Urine Culture, Routine Organism: Gram negative martin : O:ESCCOL Isolated O:GNR Isolated Organism: 1.1 Antibiotic Interpretation AIDEN Status Urine Culture, Routine 10,000-25,000 col kendall forming units per mL Urine Culture, Routine Organism: Gram negative martin : O:ESCCOL Isolated O:GNR Isolated Organism: 1.1 Antibiotic Interpretation AIDEN Status Urine Culture, Routine Escherichia coli Urine Culture, Routine Organism: Gram negative martin : O:ESCCOL Isolated O:GNR Isolated Organism: 1.1 Antibiotic Interpretation AIDEN Status Urine Culture, Routine See Below For Report Urine Culture, Routine Organism: Gram negative martin : O:ESCCOL Isolated O:GNR Isolated Organism: 1.1 Antibiotic Interpretation AIDEN Status Urine Culture, Routine See Below For Report Urine Culture, Routine Organism: Gram negative martin : O:ESCCOL Isolated O:GNR Isolated Organism: 1.1 Antibiotic Interpretation AIDEN Status Urine Culture, [facility], Routine Organism: Gram negative martin : O:ESCCOL Isolated O:GNR Isolated Organism: 1.1 Antibiotic Interpretation AIDEN Status Urine Culture, Routine [address], [place] [phone] Urine Culture, Routine Organism: Gram negative martin : O:ESCCOL Isolated O:GNR Isolated Organism: 1.1 Antibiotic Interpretation AIDEN Status Urine Culture, Routine Aquatics Lifeguard: Lavell Benson PhD, Phone: [phone] Urine Culture, Routine Organism: Gram negative martin : O:ESCCOL Isolated O:GNR Isolated Organism: 1.1 Antibiotic Interpretation AIDEN Status Urine Culture, Routine See Below For Report Urine Culture, Routine Organism: Gram negative martin : O:ESCCOL Isolated O:GNR Isolated Organism: 1.1 Antibiotic Interpretation AIDEN Status Urine Culture, Routine AMOXICILLIN/CLAVU LANIC ACID S F Urine Culture, Routine Organism: Gram negative martin : O:ESCCOL Isolated O:GNR Isolated Organism: 1.1 Antibiotic Interpretation AIDEN Status Urine Culture, Routine Ampicillin R F Urine Culture, Routine Organism: Gram negative martin : O:ESCCOL Isolated O:GNR Isolated Organism: 1.1 Antibiotic Interpretation AIDEN Status Urine Culture, Routine Cefazolin R F Urine Culture, Routine Organism: Gram negative martin : O:ESCCOL Isolated O:GNR Isolated Organism: 1.1 Antibiotic Interpretation AIDEN Status Urine Culture, Routine Cefepime R F Urine Culture, Routine Organism: Gram negative martin : O:ESCCOL Isolated O:GNR Isolated Organism: 1.1 Antibiotic Interpretation AIDEN Status Urine Culture, Routine Ceftriaxone R F Urine Culture, Routine Organism: Gram negative martin : O:ESCCOL Isolated O:GNR Isolated Organism: 1.1 Antibiotic Interpretation AIDEN Status Urine Culture, Routine Cefuroxime R F Urine Culture, Routine Organism: Gram negative martin : O:ESCCOL Isolated O:GNR Isolated Organism: 1.1 Antibiotic Interpretation AIDEN Status Urine Culture, Routine Ciprofloxacin R F Urine Culture, Routine Organism: Gram negative martin : O:ESCCOL Isolated O:GNR Isolated Organism: 1.1 Antibiotic Interpretation AIDEN Status Urine Culture, Routine Ertapenem S F Urine Culture, Routine Organism: Gram negative martin : O:ESCCOL Isolated O:GNR Isolated Organism: 1.1 Antibiotic Interpretation AIDEN Status Urine Culture, Routine Gentamicin R F Urine Culture, Routine Organism: Gram negative martin : O:ESCCOL Isolated O:GNR Isolated Organism: 1.1 Antibiotic Interpretation AIDEN Status Urine Culture, Routine Imipenem S F Urine Culture, Routine Organism: Gram negative martin : O:ESCCOL Isolated O:GNR Isolated Organism: 1.1 Antibiotic Interpretation AIDEN Status Urine Culture, Routine Levofloxacin R F Urine Culture, Routine Organism: Gram negative martin : O:ESCCOL Isolated O:GNR Isolated Organism: 1.1 Antibiotic Interpretation AIDEN Status Urine Culture, Routine Meropenem S F Urine Culture, Routine Organism: Gram negative martin : O:ESCCOL Isolated O:GNR Isolated Organism: 1.1 Antibiotic Interpretation AIDEN Status Urine Culture, Routine Nitrofurantoin S F Urine Culture, Routine Organism: Gram negative martin : O:ESCCOL Isolated O:GNR Isolated Organism: 1.1 Antibiotic Interpretation AIDEN Status Urine Culture, Routine Tetracycline S F Urine Culture, Routine Organism: Gram negative martin : O:ESCCOL Isolated O:GNR Isolated Organism: 1.1 Antibiotic Interpretation AIDEN Status Urine Culture, Routine Tobramycin I F Urine Culture, Routine Organism: Gram negative martin : O:ESCCOL Isolated O:GNR Isolated Organism: 1.1 Antibiotic Interpretation AIDEN Status Urine Culture, Routine Trimethoprim/Sulf amethoxa zole R F Urine Culture, Routine Organism: Gram negative martin : O:ESCCOL Isolated O:GNR Isolated Organism: 1.1 Antibiotic Interpretation AIDEN Status Urine Culture, Routine Piperacillin/Tazo bactam S F Urine Culture, Routine Organism: Gram negative martin : O:ESCCOL Isolated O:GNR Isolated Organism: 1.1 Antibiotic Interpretation AIDEN Status Performing Lab: see note LC - [facility] LB SEE REPORT - Eyeglass Cutter Id information not found for OBX-specific coordinating producer legend CBC AUTO DIFF Reviewed date:09/20/2024 05:06:04 PM Interpretation: Performing Lab: Notes/Report: [facility] , White Blood Count 15.3 4.0-11.0 10 3/uL Red Blood Count 3.33 4.20-5.40 10 6/uL Hemoglobin 10.2 12.0-16.0 g/dL Hematocrit 30.8 36.0-48.0 % Mean Corpuscular Volume 92.5 81.0-99.0 fL Mean Corpuscular Hemoglobin 30.6 26.7-34.0 pg Mean Corpuscular HGB Conc 33.1 29.9-35.2 g/dL Red Cell Distribution Width 15.2 11.0-15.0 % Platelet Count 250 150-450 10 3/uL Mean Platelet Volume 8.9 9.5-13.5 fL Neutrophils Percent Auto 87.0 43.0-75.0 % Lymphocytes Percent Auto 7.0 20.5-60.0 % Monocytes Percent Auto 4.5 1.7-12.0 % Eosinophils Percent Auto 0.7 0.9-7.0 % Basophils Percent Auto 0.2 0.2-2.0 % Immature Granulocytes Pct Auto 0.6 0.0-0.5 % Neutrophils Absolute Auto 13.3 1.4-6.5 10 3/uL Lymphocytes Absolute Auto 1.1 1.2-3.8 10 3/uL Monocytes Absolute Auto 0.7 0.3-0.8 10 3/uL Eosinophils Absolute Auto 0.1 0.0-0.7 10 3/uL Basophils Absolute Auto 0.0 0.0-0.1 10 3/uL Immature Granulocytes Abs Auto 0.09 0.00-0.03 10 3/uL Performing Lab: see note ML - [facility] LB INFLUENZA A AND B AG Reviewed date:09/20/2024 05:06:04 PM Interpretation: Performing Lab: Notes/Report: [facility] , Influenza Virus A Antigen Negative Negative for Flu A protein antigen. Infection due to Flu A cannot be ruled out. Flu A antigen in the sample may be below the detection limit of the test. Influenza Virus B Antigen Negative Negative for Flu B protein antigen. Infection due to Flu B cannot be ruled out. Flu B antigen in the sample may be below the detection limit of the test. Performing Lab: see note ML - [facility] LB LACTATE or LACTIC ACID Reviewed date:09/20/2024 05:06:04 PM Interpretation: Performing Lab: Notes/Report: [facility] , Lactate/Lactic Acid 1.7 0.4-2.0 mmol/L Performing Lab: see note ML - [facility] LB PROF 14(COMP METB) Reviewed date:09/20/2024 05:06:04 PM Interpretation: Performing Lab: Notes/Report: [facility] , Sodium 135 136-145 mmol/L Potassium 4.7 3.5-5.1 mmol/L Chloride 99 98-107 mmol/L Carbon Dioxide 25.4 21.0-32.0 mmol/L Anion Gap 15.3 Glucose 183 74-106 mg/dL Blood Urea Nitrogen 42.0 7.0-18.0 mg/dL Creatinine 2.08 0.55-1.02 mg/dL Estimated GFR ( Shruthi 28 >=60 mL/min/1.73m 2 Estimated GFR (Non- Trang 23 >=60 mL/min/1.73m 2 BUN Creatinine Ratio 20.2 Calcium 9.0 8.5-10.1 mg/dL Bilirubin Total 0.8 0.2-1.0 mg/dL Aspartate Amino Transferase 34 15-37 U/L Alanine Aminotransferase 51 14-59 U/L Alkaline Phosphatase 82 46-116 U/L Total Protein 7.0 6.4-8.2 g/dL Albumin Level 3.1 3.4-5.0 g/dL Globulin 3.9 Albumin Globulin Ratio 0.8 Performing Lab: see note ML - [facility] LB UA (CLEAN or CATCH) FIELD PROFESSIONAL or M ICRO IF IND. Reviewed date:09/20/2024 05:06:04 PM Interpretation: Performing Lab: Notes/Report: [facility] , Color Urine YELLOW YELLOW Clarity Urine CLEAR CLEAR Specific [place] Urine 1.020 1.005-1.025 pH Urine 5.5 5.0-9.0 Protein Urine 100 NEG/TRACE mg/dL Glucose Urine UA NEGATIVE NEGATIVE mg/dL Bilirubin Urine NEGATIVE NEGATIVE Ketones Urine NEGATIVE NEGATIVE mg/dL Blood Urine NEGATIVE NEGATIVE Nitrite Urine NEGATIVE NEGATIVE Urobilinogen Urine 0.2 0.2-1.0 EU/dL Leukocyte Esterase Urine NEGATIVE NEGATIVE Urine Microscopic Indicated YES Performing Lab: see note ML - [facility] LB URINE MICROSCOPIC ONLY Reviewed date:09/20/2024 05:06:04 PM Interpretation: Performing Lab: Notes/Report: [facility] , WBC Urine NONE SEEN NONE SEEN #/HPF RBC Urine 0-2 0-2 #/HPF Bacteria Urine TRACE NONE SEEN #/HPF Mucus Urine NONE SEEN NONE SEEN Squamous Epithelial Cell Urine MODERATE NONE/RARE #/LPF Crystals Seen? None Seen None Seen #/HPF Cast Seen? NONE SEEN NONE SEEN #/LPF Urine Culture Indicated NO Performing Lab: see note ML - [facility] LB Troponin I High Sensitivity Reviewed date:09/20/2024 05:06:04 PM Interpretation: Performing Lab: Notes/Report: [facility] , Troponin I High Sensitivity 12.6 4.0-51.3 pg/mL CUT-OFF POINTS HAVE BEEN ESTABLISHED BASED ON THE FOURTH UNIVERSAL DEFINITION OF MYOCARDIAL INFARCTION. THE UPPER REFERENCE LIMIT (URL) OF TROPONIN, DEFINED THE 99TH PERCENTILE OF cTnI DISTRIBUTION IN A REFERENCE POPULATION, HAS BEEN CONFIRMED THE DECISION THRESHOLD FOR MT DIAGNOSIS. 99TH PERCENTILE = 51.4 PG/ML NOTE: HIGH-SENSITIVITY TROPONIN ASSAY IS NOT INTENDED TO BE USED IN ISOLATION BUT SHOULD BE INTERPRETED IN CONJUNCTION WITH OTHER DIAGNOSTIC AND CLINICAL INFORMATION. Performing Lab: see note ML - [facility] LB TSH W/ REFLEX FT4 Reviewed date:09/20/2024 05:06:04 PM Interpretation: Performing Lab: Notes/Report: [facility] , TSH W/ REFLEX FT4 1.297 0.358-3.740 uIU/mL Performing Lab: see note ML - [facility] LB SARS-CoV-2 Ag* Reviewed date:09/20/2024 05:06:04 PM Interpretation: Performing Lab: Notes/Report: [facility] , SARS-CoV-2 Ag NEGATIVE NEGATIVE This test has not been FDA cleared or approved, but has been authorized by the FDA under an Emergency Use Authorization (EUA) for use by authorized laboratories certified under CLIA that meet the requirements to perform moderate or high complexity testing. This test has been authorized only for the detection of proteins from SARS-CoV-2, not for any other viruses or pathogens. The emergency use of this test is authorized for the duration of the declaration that circumstances exist justifying the authorization of emergency use of in vitro diagnostic tests for detection and/or diagnosis of Covid-19 under section 564(b)(1) of the Act, 21 U.S.C. 360bbb-3(b)(1), unless the declaration is terminated or authorization is revoked sooner. Performing Lab: see note ML - [facility] LB ECG 12 lead Reviewed date:09/22/2024 12:37:02 PM Interpretation: Performing Lab: Notes/Report: Source Facility: [facility]-[address] [place] [address] [place] [address] Electrocardiograph Report Signed Patient: KYLAH ROBIN MR#: [id number] : 1945 Acct:[id number] Age/Sex: 78 / F ADM Date: 09/20/24 Loc: ER Attending Dr: Ordering Physician: Luis Lugo Date of Service: 09/20/24 Procedure(s): ECG 12 lead Accession Number(s): [id number] cc: [facility] Test Date: 2024-09-20 Pat Name: KYLAH ROBIN Department: Room: - Gender: Female Transition Advisor: : 1945 Requested By: DHRUV RUBI Order Number: [id number] Reading MD: DHRUV RUBI Measurements Intervals Sherman Rate: 83 P: 43 WV: 156 QRS: 13 QRSD: 86 T: 57 QT: 394 QTc: 434 Interpretive Statements 1100 Sinus rhythm 4068 Nonspecific Twave abnormality 9130 borderline ECG Compared to ECG 03/01/2024 19:45:19 T-wave abnormality no longer present Electronically Signed On 09-22-2024 6:58:14 EST by DHRUV RUBI Dictated By: Dhruv Rubi M.D. Signed By: 09/22/24 0658 DD/ 1521 TD/TT: Powertrain Design Engineer: [place] [address] Electrocardiograph Report Signed Patient: CINDI ROBIN MR#: [id number] : 1945 Acct:[id number] Age/Sex: 78 / F ADM Date: 09/20/24 Loc: ER Attending Dr: Ordering Physician: Lusi Lugo Date of Service: 09/20/24 Procedure(s): ECG 12 lead Accession Number(s): [id number] cc: [facility] Test Date: 2024-09-20 Pat Name: KYLAH RODRIGUES Department: 70 Room: - Gender: Female Transition Advisor: : 1945 Requ ested By: DHRUV RUBI Order Number: [id number] Reading MD: DHRUV RUBI Measurements Intervals Sherman Rate: 83 P: 43 WV: 156 QRS: 13 QRSD: 86 T: 57 QT: 394 QTc: 434 Interpretive Statements 1100 Sinus rhythm 4068 Nonspecific Twa ve abnormality 9130 borderline ECG Compared to ECG 03/01/2024 19:45:19 T-wave abnormality n o longer present Electronically Chelita d On 09-22-2024 6:58:14 EST by DHRUV RUBI Dictated By: Gissel Rubi M.D. Signed By: 09/22/24 0658 DD/ 1521 TD/TT: Powertrain Design Engineer: CT abdomen pelvis wo con Reviewed date:09/20/2024 05:06:04 PM Interpretation: Performing Lab: Notes/Report: Source Facility: [place] [address] CT Scan Report Signed Patient: KYLAH ROBIN MR#: [id number] : 1945 Acct:[id number] Age/Sex: 78 / F ADM Date: 09/20/24 Loc: ER Attending Dr: Ordering Physician: Luis Lugo Date of Service: 09/20/24 Procedure(s): CT abdomen pelvis wo con Accession Number(s): [id number] cc: Dhruv Rubi M.D. [place] [address] Patient Name: KYLAH ROBIN MRN: [id number] date: 1945 Sex: F Assigned Patient Location: ER Current Patient Location: ER Accession/Order Number: [id number] Exam Date: 09/20/2024 15:52 Report Date: 09/20/2024 16:20 At the request of: LUIS LUGO Procedure: CT abdomen pelvis wo con EXAM: CT scan of the abdomen and pelvis without contrast. Dose reduction technique used: Automated exposure control and/or adjustment of the mA and/or kV according to patient size and/or use of iterative reconstruction technique. REASON FOR EXAM: pain llq/ rlq fever COMPARISON: None FINDINGS: Small esophageal hiatal hernia. Cholecystectomy. Small right renal cyst. Colonic diverticulosis. Hysterectomy. L1 compression fracture with mild height loss has a chronic appearance. No renal, ureteral or bladder calculi. No hydronephrosis. No evidence of appendicitis. No free fluid in the abdomen or pelvis. No free intraperitoneal air. No dilated or thickened loops of small bowel or colon. Liver, pancreas, spleen, bilateral kidneys, and bilateral adrenal glands are otherwise unremarkable within the limitations of noncontrast CT. No lymphadenopathy in the abdomen or pelvis. Remainder unremarkable. CT/CT abdomen pelvis wo con IMPRESSION: No acute abnormalities in the abdomen or pelvis. Electronically authenticated by: ISABEL MEZA Date: 09/20/2024 16:20 Dictated By: Isabel Meza M.D. Signed By: 09/20/241622 DD/ 19 TD/TT: Powertrain Design Engineer: [address] [address] [address] Scan Report Signed Patient: CINDI ROBIN MR#: [id number] : 1945 Acct:[id number] Age/Sex: 78 / F ADM Date: 09/20/24 Loc: ER Attending Dr: Ordering Physician: Luis Lugo Date of Service: 09/20/24 Procedure(s): CT abd omen pelvis wo con Accession Number(s): [id number] cc: Dhruv Rubi M.D. [address] [address] Patient Name: KYLAH ROBIN MRN: [id number] date: 1945 Sex: F Assigned Patient Location: ER Current Patient Loca tion: ER Accession/Order Numb er: [id number] Exam Date: 15:52 Report Date: 09/20/2024 16:20 At the request of: LUIS LUGO Procedure: CT abdome n pelvis wo con EXAM: CT scan of the abdomen and pelvis without contrast. Dose reduction techn ique used: Automated exposure control and/or adjustment of the mA and/or kV according to patient size and/or use of iterative reconstruction technique. REASON FOR EXAM: erika n llq/ rlq fever COMPARISON: None FINDINGS: Small esophageal hia juliette hernia. Cholecystectomy. Small right renal cyst. Colonic diverticulos is. Hysterectomy. L1 compression fracture with mild height loss has a chronic appearance. No renal, ureteral o r bladder calculi. No hydronephrosis. No evidence of appendicitis. No jovon e fluid in the abdomen or pelvis. No free intraperitoneal air. No dilated or thickened loops of small bowel or colon. Liver, pancreas, spleen, bilateral kidneys, and bilateral adrenal glands are otherwise unremarkable within the limitations of noncontrast CT. No lymphadenopathy in the abdomen or pelvis. Remainder unremarkable. C T/CT abdomen pelvis wo con IMPRESSION: No acute abnormaliti es in the abdomen or pelvis. Electronically authenticated by: ISABEL MEZA Date: 09/20/2024 16:20 Dictated By: William Meza M.D. Signed By: 09/20/241622 DD/ 19 TD/TT: Powertrain Design Engineer: XR chest 1V Reviewed date:09/20/2024 05:06:04 PM Interpretation: Performing Lab: Notes/Report: Source Facility: [place] [address] XRay Report Signed Patient: KYLAH ROBIN MR#: [id number] : 1945 Acct:[id number] Age/Sex: 78 / F ADM Date: 09/20/24 Loc: ER Attending Dr: Ordering Physician: Luis Lugo Date of Service: 09/20/24 Procedure(s): XR chest 1V Accession Number(s): [id number] cc: Dhruv Rubi M.D.; Luis Lugo [place] [address] Patient Name: KYLAH ROBIN MRN: [id number] date: 1945 Sex: F Assigned Patient Location: ER Current Patient Location: ER Accession/Order Number: [id number] Exam Date: 09/20/2024 15:28 Report Date: 09/20/2024 15:58 At the request of: LUIS LUGO Procedure: XR chest 1V FRONTAL CHEST; 09/20/2024 3:28 PM EST Clinical History:cough, fever Comparison: 03/01/2024 . AP portable upright film. Again, status post a median sternotomy. No apparent change osseous structures. No change cardiac and mediastinal silhouettes or gisell. Slight hypoventilation at the bases. No focal infiltrate. No pleural effusion or failure. XR/XR chest 1V IMPRESSION: 1. No focal infiltrate. Slight hypoventilation at the bases. Electronically authenticated by: SOLOMON BETH Date: 09/20/2024 15:58 Dictated By: Solomon Beth M.D. Signed By: 09/20/24 1601 DD/ 1558 TD/TT: Powertrain Design Engineer: [place] [address] XRay Report Signed Patient: CINDI ROBIN MR#: [id number] : 1945 Acct:[id number] Age/Sex: 78 / F ADM Date: 09/20/24 Loc: ER Attending Dr: Ordering Physician: Luis Lugo Date of Service: 09/20/24 Procedure(s): XR chest 1V Accession Number(s): [id number] cc: Dhruv Rubi M.D. ; Luis Lugo [place] [id number] Patient Name: KYLAH ROBIN MRN: [facility]:[id number] date: 1945 Sex: F Assigned Patient Location: ER Current Patient Loca tion: ER Accession/Order Numb er: [id number] Exam Date: 15:28 Report Date: 09/20/2024 15:58 At the request of: LUIS LUGO Procedure: XR chest 1V FRONTAL CHEST; 09/20 3:28 PM EST Clinical History:cou gh, fever Comparison: 03/01/2024 . AP portable upright film. Again, status post a median sternotomy. No apparent change osseous structures. No change cardiac an d mediastinal silhouettes or gisell. Slight hypoventilati on at the bases. No focal infiltrate. No pleural effusion or failure. X R/XR chest 1V IMPRESSION: 1. No focal infiltra te. Slight hypoventilation at the bases. Electronically authenticated by: SOLOMON BETH Date: 09/20/2024 15:58 Dictated By: Antonieta Beth M.D. Signed By: 09/20/24 160 DD/ 1558 TD/TT: Powertrain Design Engineer: CBC AUTO DIFF Reviewed date:11/18/2024 10:07:51 PM Interpretation: Performing Lab: Notes/Report: [facility] , White Blood Count 6.9 4.0-11.0 10 3/uL Red Blood Count 3.57 4.20-5.40 10 6/uL Hemoglobin 10.9 12.0-16.0 g/dL Hematocrit 32.7 36.0-48.0 % Mean Corpuscular Volume 91.6 81.0-99.0 fL Mean Corpuscular Hemoglobin 30.5 26.7-34.0 pg Mean Corpuscular HGB Conc 33.3 29.9-35.2 g/dL Red Cell Distribution Width 15.1 11.0-15.0 % Platelet Count 214 150-450 10 3/uL Mean Platelet Volume 9.2 9.5-13.5 fL Neutrophils Percent Auto 55.3 43.0-75.0 % Lymphocytes Percent Auto 30.9 20.5-60.0 % Monocytes Percent Auto 11.3 1.7-12.0 % Eosinophils Percent Auto 1.7 0.9-7.0 % Basophils Percent Auto 0.4 0.2-2.0 % Immature Granulocytes Pct Auto 0.4 0.0-0.5 % Neutrophils Absolute Auto 3.8 1.4-6.5 10 3/uL Lymphocytes Absolute Auto 2.1 1.2-3.8 10 3/uL Monocytes Absolute Auto 0.8 0.3-0.8 10 3/uL Eosinophils Absolute Auto 0.1 0.0-0.7 10 3/uL Basophils Absolute Auto 0.0 0.0-0.1 10 3/uL Immature Granulocytes Abs Auto 0.03 0.00-0.03 10 3/uL Performing Lab: see note ML - [facility] LB PROF CHEM 8 (BAS METB) Reviewed date:11/18/2024 10:07:51 PM Interpretation: Performing Lab: Notes/Report: [facility] , Sodium 140 136-145 mmol/L Potassium 4.2 3.5-5.1 mmol/L Chloride 103 98-107 mmol/L Carbon Dioxide 26.5 21.0-32.0 mmol/L Anion Gap 14.7 Glucose 141 74-106 mg/dL Blood Urea Nitrogen 39.0 7.0-18.0 mg/dL Creatinine 1.94 0.55-1.02 mg/dL Estimated GFR ( Shruthi 30 >=60 mL/min/1.73m 2 Estimated GFR (Non- Trang 25 >=60 mL/min/1.73m 2 BUN Creatinine Ratio 20.1 Calcium 8.9 8.5-10.1 mg/dL Performing Lab: see note ML - [facility] LB ECG 12 lead Reviewed date:11/20/2024 06:53:57 AM Interpretation: Performing Lab: Notes/Report: Source Facility: [place] [address] Electrocardiograph Report Signed Patient: KYLAH ROBIN MR#: [id number] : 1945 Acct:[id number] Age/Sex: 78 / F ADM Date: 11/17/24 Loc: ER Attending Dr: Ordering Physician: Pee Prabhakar M.D. Date of Service: 11/17/24 Procedure(s): ECG 12 lead Accession Number(s): [id number] cc: [facility] Test Date: 2024-11-17 Pat Name: KYLAH ROBIN Department: Room: - Gender: Female Transition Advisor: : 1945 Requested By: DHRUV RUBI Order Number: [id number] Reading MD: DHRUV RUBI Measurements Intervals Sherman Rate: 71 P: 25 WV: 186 QRS: 18 QRSD: 84 T: 91 QT: 408 QTc: 431 Interpretive Statements 1100 Sinus rhythm 4068 Nonspecific Twave abnormality 9130 borderline ECG Compared to ECG 09/20/2024 15:21:49 No significant changes Electronically Signed On 11-20-2024 5:24:01 EST by DHRUV RUBI Dictated By: Dhruv Rubi M.D. Signed By: 11/20/24 0524 DD/ 2218 TD/TT: Powertrain Design Engineer: [place] [address] Electrocardiograph Report Signed Patient: CINDI ROBIN MR#: [id number] : 1945 Acct:[id number] Age/Sex: 78 / F ADM Date: 11/17/24 Loc: ER Attending Dr: Ordering Physician: Pee Prabhakar M.D. Date of Service: 11/17/24 Procedure(s): ECG 12 lead Accession Number(s): [id number] cc: [facility] Test Date: 2024-11-17 Pat Name: KYLAH RODRIGUES Department: 70 Room: - Gender: Female Transition Advisor: : 1945 Requ ested By: DHRUV RUBI Order Number: [id number] Reading MD: DHRUV RUBI Measurements Intervals Sherman Rate: 71 P: 25 WV: 186 QRS: 18 QRSD: 84 T: 91 QT: 408 QTc: 431 Interpretive Statements 1100 Sinus rhythm 4068 Nonspecific Twa ve abnormality 9130 borderline ECG Compared to ECG 09/20/2024 15:21:49 No significant changes Electronically Chelita d On 11-20-2024 5:24:01 EST by DHRUV RUBI Dictated By: Gissel Rubi M.D. Signed By: 11/20/24 0524 DD/ 2218 TD/TT: Powertrain Design Engineer: Troponin I High Sensitivity Reviewed date:12/31/2024 08:41:15 PM Interpretation: Performing Lab: Notes/Report: [facility] , Troponin I High Sensitivity 11.5 4.0-51.3 pg/mL CUT-OFF POINTS HAVE BEEN ESTABLISHED BASED ON THE FOURTH UNIVERSAL DEFINITION OF MYOCARDIAL INFARCTION. THE UPPER REFERENCE LIMIT (URL) OF TROPONIN, DEFINED THE 99TH PERCENTILE OF cTnI DISTRIBUTION IN A REFERENCE POPULATION, HAS BEEN CONFIRMED THE DECISION THRESHOLD FOR MT DIAGNOSIS. 99TH PERCENTILE = 51.4 PG/ML NOTE: HIGH-SENSITIVITY TROPONIN ASSAY IS NOT INTENDED TO BE USED IN ISOLATION BUT SHOULD BE INTERPRETED IN CONJUNCTION WITH OTHER DIAGNOSTIC AND CLINICAL INFORMATION. Performing Lab: see note ML - [facility] LB IRON AND TIBC Reviewed date:01/05/2025 07:25:49 PM Interpretation: Performing Lab: Notes/Report: [facility] , Iron 69.0 50.0-170.0 ug/dL Total Iron Binding Capacity 207.0 250.0-450.0 ug/dL Percent Iron Saturation 33.3 Performing Lab: see note ML - [facility] LB MAGNESIUM Reviewed date:01/05/2025 07:25:49 PM Interpretation: Performing Lab: Notes/Report: [facility] , Magnesium 1.9 1.8-2.4 mg/dL Performing Lab: see note ML - [facility] RENAL FUNCTION PANEL Reviewed date:01/05/2025 07:25:49 PM Interpretation: Performing Lab: Notes/Report: [facility] , Sodium 141 136-145 mmol/L Potassium 4.7 3.5-5.1 mmol/L Chloride 105 98-107 mmol/L Carbon Dioxide 24.4 21.0-32.0 mmol/L Anion Gap 16.3 Glucose 122 74-106 mg/dL Blood Urea Nitrogen 35.0 7.0-18.0 mg/dL Creatinine 1.89 0.55-1.02 mg/dL Estimated GFR ( Shruthi 31 >=60 mL/min/1.73m 2 Estimated GFR (Non- Trang 26 >=60 mL/min/1.73m 2 BUN Creatinine Ratio 18.5 Calcium 9.2 8.5-10.1 mg/dL Phosphorus 3.8 2.6-4.7 mg/dL Albumin Level 3.3 3.4-5.0 g/dL Performing Lab: see note ML - [facility] URIC ACID SERUM Reviewed date:01/05/2025 07:25:49 PM Interpretation: Performing Lab: Notes/Report: [facility] , Uric Acid 3.9 2.6-6.0 mg/dL Performing Lab: see note ML - [facility] URINE T PROTEIN CREAT RATIO Reviewed date:01/05/2025 07:25:49 PM Interpretation: Performing Lab: Notes/Report: [facility] , Total Protein Urine Random 108.9 <=11.9 mg/dL Creatinine Urine Random 157.18 20.00-30 0.00 mg/dL Protein Creatinine Ratio Urine 0.69 Performing Lab: see note ML - [facility] VITAMIN D 25 [place] Reviewed date:01/05/2025 07:25:49 PM Interpretation: Performing Lab: Notes/Report: [facility] , Vitamin D 30.9 <20 ng/mL Vit D deficient 20-<30 ng/mL Vit D insufficient 30-100 ng/mL Vit D sufficient >100 ng/mL Potential Toxicity Performing Lab: see note ML - [facility] LB CBC no Diff (Hemogram) Reviewed date:01/05/2025 07:25:49 PM Interpretation: Performing Lab: Notes/Report: [facility] , White Blood Count 6.0 4.0-11.0 10 3/uL Red Blood Count 3.35 4.20-5.40 10 6/uL Hemoglobin 10.4 12.0-16.0 g/dL Hematocrit 31.5 36.0-48.0 % Mean Corpuscular Volume 94.0 81.0-99.0 fL Mean Corpuscular Hemoglobin 31.0 26.7-34.0 pg Mean Corpuscular HGB Conc 33.0 29.9-35.2 g/dL Red Cell Distribution Width 15.1 11.0-15.0 % Platelet Count 182 150-450 10 3/uL Mean Platelet Volume 9.4 9.5-13.5 fL Performing Lab: see note ML - [facility] LB UA RANDOM W or MICROSCOPIC Reviewed date:01/05/2025 07:25:49 PM Interpretation: Performing Lab: Notes/Report: [facility] , Color Urine LT. YELLOW YELLOW Clarity Urine CLOUDY CLEAR Specific [place] Urine 1.020 1.005-1.025 pH Urine 6.0 5.0-9.0 Protein Urine 100 NEG/TRACE mg/dL Glucose Urine UA NEGATIVE NEGATIVE mg/dL Bilirubin Urine NEGATIVE NEGATIVE Ketones Urine NEGATIVE NEGATIVE mg/dL Blood Urine NEGATIVE NEGATIVE Nitrite Urine NEGATIVE NEGATIVE Urobilinogen Urine 0.2 0.2-1.0 EU/dL Leukocyte Esterase Urine MODERATE NEGATIVE WBC Urine >100 NONE SEEN #/HPF RBC Urine 0-2 0-2 #/HPF Bacteria Urine LARGE NONE SEEN #/HPF Mucus Urine NONE SEEN NONE SEEN Squamous Epithelial Cell Urine MODERATE NONE/RARE #/LPF Crystals Seen? None Seen None Seen #/HPF Cast Seen? NONE SEEN NONE SEEN #/LPF Performing Lab: see note ML - [facility] LB FERRITIN Reviewed date:01/05/2025 07:25:49 PM Interpretation: Performing Lab: Notes/Report: [facility] , Ferritin 499.0 8.0-252.0 ng/mL Performing Lab: see note ML - [facility] LB XR chest 2V Reviewed date:12/31/2024 08:41:15 PM Interpretation: Performing Lab: Notes/Report: Source Facility: [facility] [place] [address] [address] XRay Report Signed Patient: KYLAH ROBIN MR#: [id number] : 1945 Acct:[id number] Age/Sex: 79 / F ADM Date: 12/31/24 Loc: LAB Attending Dr: Dhruv Rubi M.D. Ordering Physician: Dhruv Rubi M.D. Date of Service: 12/31/24 Procedure(s): XR chest 2V Accession Number(s): [id number] cc: Dhruv Rubi M.D. The [place] [address] Patient Name: KYLAH ROBIN MRN: [id number] date: 1945 Sex: F Assigned Patient Location: LAB Current Patient Location: LAB Accession/Order Number: [id number] Exam Date: 12/31/2024 12:38 Report Date: 12/31/2024 12:41 At the request of: DHRUV RUBI MD Procedure: XR chest 2V Plain film chest Single view HISTORY: Shortness of breath for one day COMPARISON: 09/20/2024 FINDINGS: SUPPORT DEVICES: None POSTSURGICAL CHANGES: Sternotomy with mediastinal clips stable. HEART: Stable PULMONARY GISELL: Within normal limits MEDIASTINUM: Unremarkable LUNGS AND PLEURA: No acute lung process, pleural effusion or pneumothorax identified. BONY STRUCTURES: Thoracic spondylosis/hyperostosis ADDITIONAL FINDINGS None XR/XR chest 2V IMPRESSION: No acute process. Impression dictated by: Mariusz Hernandez M.D.12/31/2024 12:41 PM Dictation Location: [place] [address] Electronically authenticated by: [id number] Y Date: 12/31/2024 12:41 Dictated By: Mariusz Hernandez D.O. Signed By: 12/31/241243 DD/ 40 TD/TT: Powertrain Design Engineer: The [address] [address] XRay Report Signed Patient: CINDI ROBIN MR#: [id number] : 1945 Acct:[id number] Age/Sex: 79 / F ADM Date: 12/31/24 Loc: LAB Attending Dr: Violeta Rubi M.D. Ordering Physician: Dhruv Rubi M.D. Date of Service: 12/31/24 Procedure(s): XR chest 2V Accession Number(s): [id number] cc: Dhruv Rubi M.D. [address] [address] Patient Name: KYLAH ROBIN MRN: [id number] date: 1945 Sex: F Assigned Patient Location: LAB Current Patient Loca tion: LAB Accession/Order Numb er: [id number] Exam Date: 12/31/2024 12:38 Report Date: 12/31/2024 12:41 At the request of: DHRUV RUBI MD Procedure: XR chest 2V Plain film chest Sin gle view HISTORY: Shortness o f breath for one day COMPARISON: 09/20/2024 FINDINGS: SUPPORT DEVICES: None POSTSURGICAL CHANGES : Sternotomy with mediastinal clips stable. HEART: Stable PULMONARY GISELL: With in normal limits MEDIASTINUM: Unremarkable LUNGS AND PLEURA: No acute lung process, pleural effusion or pneumothorax identified. BONY STRUCTURES: Tho racic spondylosis/hyperostosis ADDITIONAL FINDINGS None X R/XR chest 2V IMPRESSION: No acute process. Impression dictated by: Mariusz Hernandez M.D.12/31/2024 12:41 PM Dictation Location: [place] [address] Electronically authenticated by: [id number] Y Date: 12/31/2024 12:41 Dictated By: Vern Hernandez D.O. Signed By: 12/31/244 DD/ 124 TD/TT: Powertrain Design Engineer: KENAN tomosynthesis screening B I Reviewed date:12/22/2024 08:51:42 PM Interpretation: Performing Lab: Notes/Report: Source Facility: [facility] [place] [address] [place] [address] Mammography Report Signed Patient: KYLAH ROBIN MR#: [id number] : 1945 Acct:[id number] Age/Sex: 79 / F ADM Date: 12/22/24 Loc: MAMMO Attending Dr: Dhruv Rubi M.D. Ordering Physician: Dhruv Rubi M.D. Results: Date of Service: 12/22/24 Follow Up: Procedure(s): MM tomosynthesis screening BI Accession Number(s): [id number] cc: Dhruv Rubi M.D. Patient Name: KYLAH ROBIN MR#: [id number] : 1945 Exam Date: 12/22/2024 Ordering Doctor: DR Dhruv Rubi . RADIOLOGY REPORT PROCEDURE: MM TOMOSYNTHESIS SCREENING BI COMPARISON: MM TOMOSYNTHESIS SCREENING BI, 12/19/2023. MG MAMM SCREEN 3D MAY CAD, 12/17/2022. MG MAMM SCREEN 3D MAY CAD, 12/15/2021. MG MAMM MAY SCRN W CAD DIG, 10/01/2013. INDICATIONS: Screening Calculator Name NCI Breast Cancer Risk Assessment Tool 5 Year Breast Cancer Risk 3.70% Lifetime Breast Cancer Risk 5.70% Personal Breast Cancer No Personal Ovarian Cancer No Treatments None Family Cancers Grandmother-maternal with breast cancer at age 70; Daughter with breast cancer at age 35; Aunt-maternal with breast cancer at age 72; Father with lung cancer at age 62. LOCATION: [facility] BREAST COMPOSITION: There are scattered areas of fibroglandular density. FINDINGS: DIAGNOSTIC CATEGORY 1--NEGATIVE. RIGHT BREAST: No significant suspicious finding. LEFT BREAST: No significant suspicious finding. RECOMMENDATIONS: ROUTINE MAMMOGRAM AND CLINICAL EVALUATION IN 12 MONTHS. PLEASE NOTE: Dictated by: Cristóbal Gamino DO on 12/22/2024 at 15:54 Approved by: Cristóbal Gamino DO on 12/22/2024 at 16:00 Dictated By: Cristóbal Gamino M.D. Signed By: 12/22/24 1602 DD/ 00 TD/TT: Powertrain Design Engineer: [place] [address] Mammography Report Signed Patient: CINDI ROBIN MR#: [id number] : 1945 Acct:[id number] Age/Sex: 79 / F ADM Date: 12/22/24 Loc: MAMMO Attending Dr: Violeta Rubi M.D. Ordering Physician: Dhruv Rubi M.D. Results: Date of Service: Follow Up: Procedure(s): MM tomosynthesis screening BI Accession Number(s): [id number] cc: Dhruv Rubi M.D. Patient Name: KYLAH ROBIN MR#: [id number] : 1945 Exam Date: 12/22/2024 Ordering Doctor: DR Dhruv Rubi . RADIOLOGY REPORT PROCEDURE: MM TOMOSYNTHESIS SCREENING BI COMPARISON: MM TOMOSYNTHESIS SCREENING BI, 12/19/2023. MG MAMM SCREEN 3D MAY CAD, 12/17/2022. MG MAMM SCREEN 3D MAY CAD, 12/15/2021. MG MAMM MAY SCRN W CAD DIG, 10/01/2013. INDICATIONS: Screening Calculator Name NCI Breast Cancer Risk Assessment Tool 5 Year Breast Cancer Risk 3.70% Lifetime Breast Canc er Risk 5.70% Personal Breast Cancer No Personal Ovarian Can cer No Treatments None Family Cancers Grandmother-maternal with breast cancer at age 70; Daughter with breast cancer a t age 35; Aunt-maternal with breast cancer at age 72; Father with lung can cer at age 62. LOCATION: [facility] BREAST COMPOSITION: There are scattered areas of fibroglandular density. FINDINGS: DIAGNOSTIC CATEGORY 1--NEGATIVE. RIGHT BREAST: No significant suspicious finding. LEFT BREAST: No significant suspicious finding. RECOMMENDATIONS: ROUTINE MAMMOGRAM AN D CLINICAL EVALUATION IN 12 MONTHS. PLEASE NOTE: Dictated by: Cristóbal Gamino DO on 12/22/2024 at 15:54 Approved by: Cristóbal Gamino DO on 12/22/2024 at 16:00 Dictated By: Cristóbal Gamino M.D. Signed By: 12/22/24 160 DD/ 00 TD/TT: Powertrain Design Engineer: CBC no Diff (Hemogram) Reviewed date:09/01/2024 06:04:15 PM Interpretation: Performing Lab: Notes/Report: [facility] , White Blood Count 6.3 4.0-11.0 10 3/uL Red Blood Count 3.16 4.20-5.40 10 6/uL Hemoglobin 9.9 12.0-16.0 g/dL Hematocrit 29.8 36.0-48.0 % Mean Corpuscular Volume 94.3 81.0-99.0 fL Mean Corpuscular Hemoglobin 31.3 26.7-34.0 pg Mean Corpuscular HGB Conc 33.2 29.9-35.2 g/dL Red Cell Distribution Width 15.4 11.0-15.0 % Platelet Count 201 150-450 10 3/uL Mean Platelet Volume 9.4 9.5-13.5 fL Performing Lab: see note ML - [facility] VITAMIN D 25 [place] Reviewed date:09/01/2024 06:04:15 PM Interpretation: Performing Lab: Notes/Report: [facility] , Vitamin D 35.4 <20 ng/mL Vit D deficient 20-<30 ng/mL Vit D insufficient 30-100 ng/mL Vit D sufficient >100 ng/mL Potential Toxicity Performing Lab: see note ML - [facility] LB IRON AND TIBC Reviewed date:09/01/2024 06:04:15 PM Interpretation: Performing Lab: Notes/Report: [facility] , Iron 61.0 50.0-170.0 ug/dL Total Iron Binding Capacity 205.0 250.0-450.0 ug/dL Percent Iron Saturation 29.8 Performing Lab: see note ML - [facility] LB FERRITIN Reviewed date:09/01/2024 06:04:15 PM Interpretation: Performing Lab: Notes/Report: [facility] , Ferritin 488.0 8.0-252.0 ng/mL Performing Lab: see note ML - [facility] LB CA echo doppler complete Reviewed date:06/26/2024 08:23:03 AM Interpretation: Performing Lab: Notes/Report: Source Facility: [facility]-[address] [place] [address] [address] Cardiology Report Signed Patient: KYLAH ROBIN MR#: [id number] : 1945 Acct:[id number] Age/Sex: 78 / F ADM Date: 06/24/24 Loc: CARD Attending Dr: Carlie Prescott M.D. Ordering Physician: Carlie Prescott M.D. Date of Service: 06/24/24 Procedure(s): CA echo doppler complete Accession Number(s): [id number] cc: Carlie Prescott M.D.; Dhruv Rubi M.D. Patient Name: KYLAH ROBIN MR#: [id number] : 1945 Exam Date: 06/24/2024 Ordering Doctor: DR CARLIE PRESCOTT M.D. ECHOCARDIOGRAM REPORT PROCEDURE: CA ECHO DOPPLER COMPLETE INDICATIONS: Murmur, hypertension, diabetes COMPARISON: None. DESCRIPTION: COMPLETE ECHOCARDIOGRAM Real-time transthoracic echocardiography with 2D, M-mode, spectral and color flow Doppler performed. QUALITY: Technical quality was good. LEFT VENTRICLE: Normal chamber size. Mild left ventricular hypertrophy. Sigmoid septum. LV EF: Global left ventricular systolic function is hyperdynamic; visually estimated ejection fraction is 65 to 70%. No significant wall motion abnormalities. DIASTOLIC: Grade 1 diastolic dysfunction. ATRIAL SEPTUM: Visually appears intact. LEFT ATRIUM: Mild dilatation. RIGHT ATRIUM: Normal chamber size. RIGHT VENTRICLE: Normal chamber size. Normal right ventricular systolic function. TRICUSPID VALVE: Normal mobility and thickness. No stenosis with trivial regurgitation. No evidence of pulmonary hypertension. RVSP 18 mmHg MITRAL VALVE: Normal mobility and thickness. Mild mitral valve stenosis. Moderate mitral annular calcification. Trivial mitral regurgitation. AORTIC VALVE: Normal trileaflet appearance. Mildly calcified aortic valve. Mildly diminished mobility. No evidence of aortic valve stenosis. No aortic regurgitation. AORTIC ROOT: Normal diameter and appearance. Ascending aorta is normal in size. PULMONIC VALVE: Normal thickness and mobility. No stenosis. Trivial regurgitation. PERICARDIUM: No evidence of pericardial effusion. CONCLUSION: 1. Global left ventricular systolic function is hyperdynamic; visually estimated ejection fraction is 65 to 70% 2. Normal right ventricular size and systolic function 3. Mild left ventricular hypertrophy 4. Grade 1 diastolic dysfunction dysfunction 5. The left atrium is mildly dilated 6. Mild mitral stenosis Adult Echocardiography Procedure Report Left Ventricle LVEDD (3.7 - 5.6 cm): 4.46 cm LVESD (2.2 - 4.0 cm): 2.83 cm LVIVS thickness (0.6 - 1.2 cm): 1.56 cm LVPW thickness (0.5 - 1.0 cm): 1.25 cm e': 0.09 m/s E - e': 9.61 LVOT Max Gradient: 2.98 mm[Hg] LVOT Area (cm2): 0.86 m/s Peak Velocity (LVOT): 0.86 m/s Mean Velocity (LVOT): 0.57 m/s LVOT Diameter 1.97 cm Left Atrium LA Volume Index (2D A2C): 39.09 ml/m2 Left Atrium Systolic Dimension: 4.86 cm Mitral Valve MV E to A Ratio: 0.68 Mitral Valve A-Wave Peak Velocity: 1.29 m/s Mitral Valve E-Wave Peak Velocity: 0.88 m/s Right Ventricle Aorta AO Root Diam: 3.10 cm Ascending Ao Diam: 3.16 cm Aortic Valve AoV Area (Peak Shlomo): 1.86 cm2, 1.86 cm2 AoV Area (VTI): 2.59 cm2, 2.59 cm2 Peak Velocity(Antegrade Flow): 1.41 m/s Peak Gradient(Antegrade Flow): 7.94 mm[Hg] Mean Velocity(Antegrade Flow): 0.91 m/s Mean Gradient(Antegrade Flow): 3.86 mm[Hg] Velocity Time Integral: 27.65 cm Tricuspid Valve Peak Velocity (Regurgitant Flow): 1.93 m/s Pulmonic Valve Mean Gradient: 3.04 mm[Hg] Mean Velocity: 0.83 m/s Peak Velocity: 1.18 m/s, 1.06 m/s Peak Gradient: 4.53 mm[Hg], 5.59 mm[Hg] Right Atrium Right Atrium Systolic Pressure: 33.47 ml, 33.47 ml Dictated by: Carlie Prescott M.D. on 06/25/2024 at 17:00 Approved by: Carlie Prescott M.D. on 06/25/2024 at 17:05 Dictated By: Carlie Prescott M.D. Signed By: 06/25/24 1706 DD/ 04 TD/TT: Powertrain Design Engineer: [place] [address] Cardiology Report Signed Patient: CINDI ROBIN MR#: [id number] : 1945 Acct:[id number] Age/Sex: 78 / F ADM Date: 06/24/24 Loc: CARD Attending Dr: Carlie Prescott M.D. Ordering Physician: Carlie Prescott M.D. Date of Service: 06/24/24 Procedure(s): CA ech o doppler complete Accession Number(s): [id number] cc: Carlie Prescott; Dhruv Rubi M.D. Patient Name: KYLAH ROBIN MR#: [id number] : 1945 Exam Date: 06/24/2024 Ordering Doctor: DR CARLIE PRESCOTT M.D. ECHOCARDIOGRAM REPORT PROCEDURE: CA ECHO DOPPLER COMPLETE INDICATIONS: Murmur, hypertension, diabetes COMPARISON: None. DESCRIPTION: COMPLET E ECHOCARDIOGRAM Real-time transthoracic echocardiography wit h 2D, M-mode, spectral and color flow Doppler performed. QUALITY: Technical quality was good. LEFT VENTRICLE: Norm al chamber size. Mild left ventricular hypertrophy. Sigmoid septum. LV EF: Global left ventricular systolic function is hyperdynamic; visually estimated ejection fraction is 65 to 70%. No significant wall motion abnormalities. DIASTOLIC: Grade 1 diastolic dysfunction. ATRIAL SEPTUM: Visua lly appears intact. LEFT ATRIUM: Mild dilatation. RIGHT ATRIUM: Normal chamber size. RIGHT VENTRICLE: Nor mal chamber size. Normal right ventricular systolic function. TRICUSPID VALVE: Nor mal mobility and thickness. No stenosis with trivial regurgitation. No evidence of pulmonary hypertension. RVSP 18 mmHg MITRAL VALVE: Normal mobility and thickness. Mild mitral valve stenosis. Moderate mitral martin lar calcification. Trivial mitral regurgitation. AORTIC VALVE: Normal trileaflet appearance. Mildly calcified aortic valve. Mildly diminished mobility. No evidence of aortic valve stenosis. No aortic regurgitation. AORTIC ROOT: Normal diameter and appearance. Ascending aorta is normal in size. PULMONIC VALVE: Norm al thickness and mobility. No stenosis. Trivial regurgitation. PERICARDIUM: No evid ence of pericardial effusion. CONCLUSION: 1. Global left ventricular systolic function is hyperdynamic; visually estimated ejection fraction is 65 to 70% 2. Normal right ventricular size and systolic function 3. Mild left ventric ular hypertrophy 4. Grade 1 diastolic dysfunction dysfunction 5. The left atrium i s mildly dilated 6. Mild mitral stenosis Adult Echocardiograp hy Procedure Report Left Ventricle LVEDD (3.7 - 5.6 cm) : 4.46 cm LVESD (2.2 - 4.0 cm) : 2.83 cm LVIVS thickness (0.6 - 1.2 cm): 1.56 cm LVPW thickness (0.5 - 1.0 cm): 1.25 cm e': 0.09 m/s E - e': 9.61 LVOT Max Gradient: 2 .98 mm[Hg] LVOT Area (cm2): 0.86 m/s Peak Velocity (LVOT) : 0.86 m/s Mean Velocity (LVOT) : 0.57 m/s LVOT Diameter 1.97 cm Left Atrium LA Volume Index (2D A2C): 39.09 ml/m2 Left Atrium Systolic Dimension: 4.86 cm Mitral Valve MV E to A Ratio: 0.68 Mitral Valve A-Wave Peak Velocity: 1.29 m/s Mitral Valve E-Wave Peak Velocity: 0.88 m/s Right Ventricle Aorta AO Root Diam: 3.10 cm Ascending Ao Diam: 3 .16 cm Aortic Valve AoV Area (Peak Shlomo): 1.86 cm2, 1.86 cm2 AoV Area (VTI): 2.59 cm2, 2.59 cm2 Peak Velocity(Antegr johny Flow): 1.41 m/s Peak Gradient(Antegr johny Flow): 7.94 mm[Hg] Mean Velocity(Antegr johny Flow): 0.91 m/s Mean Gradient(Antegr johny Flow): 3.86 mm[Hg] Velocity Time Integr al: 27.65 cm Tricuspid Valve Peak Velocity (Regurgitant Flow): 1.93 m/s Pulmonic Valve Mean Gradient: 3.04 mm[Hg] Mean Velocity: 0.83 m/s Peak Velocity: 1.18 m/s, 1.06 m/s Peak Gradient: 4.53 mm[Hg], 5.59 mm[Hg] Right Atrium Right Atrium Systoli c Pressure: 33.47 ml, 33.47 ml Dictated by: Carlie Prescott M.D. on 06/25/2024 at 17:00 Approved by: Carlie Prescott M.D. on 06/25/2024 at 17:05 Dictated By: Carlie Prescott M.D. Signed By: 06/25/241705 DD/ 04 TD/TT: Powertrain Design Engineer: UA RANDOM W or MICROSCOPIC Reviewed date:06/18/2024 09:50:39 PM Interpretation: Performing Lab: Notes/Report: [facility] , Color Urine LT. YELLOW YELLOW Clarity Urine CLEAR CLEAR Specific [place] Urine 1.020 1.005-1.025 pH Urine 5.5 5.0-9.0 Protein Urine 30 NEG/TRACE mg/dL Glucose Urine UA NEGATIVE NEGATIVE mg/dL Bilirubin Urine NEGATIVE NEGATIVE Ketones Urine TRACE NEGATIVE mg/dL Blood Urine NEGATIVE NEGATIVE Nitrite Urine NEGATIVE NEGATIVE Urobilinogen Urine 0.2 0.2-1.0 EU/dL Leukocyte Esterase Urine TRACE NEGATIVE WBC Urine 0-2 NONE SEEN #/HPF RBC Urine 0-2 0-2 #/HPF Bacteria Urine SMALL NONE SEEN #/HPF Mucus Urine NONE SEEN NONE SEEN Squamous Epithelial Cell Urine MANY NONE/RARE #/LPF Crystals Seen? None Seen None Seen #/HPF Cast Seen? SEEN NONE SEEN #/LPF Hyaline Casts Urine FEW Urine Culture Indicated YES Performing Lab: see note ML - [facility] LB TSH Reviewed date:06/18/2024 09:50:39 PM Interpretation: Performing Lab: Notes/Report: [facility] , Thyroid Stimulating Hormone 1.690 0.358-3.740 uIU/mL Performing Lab: see note ML - [facility] LB T4 Reviewed date:06/18/2024 09:50:39 PM Interpretation: Performing Lab: Notes/Report: [facility] , T4 Thyroxine 5.30 4.80-13.90 ug/dL Performing Lab: see note ML - [facility] LB PROF 14(COMP METB) Reviewed date:06/18/2024 09:50:39 PM Interpretation: Performing Lab: Notes/Report: [facility] , Sodium 138 136-145 mmol/L Potassium 4.2 3.5-5.1 mmol/L Chloride 102 98-107 mmol/L Carbon Dioxide 24.6 21.0-32.0 mmol/L Anion Gap 15.6 Glucose 141 74-106 mg/dL Blood Urea Nitrogen 47.0 7.0-18.0 mg/dL Creatinine 2.29 0.55-1.02 mg/dL Estimated GFR ( Shruthi 25 >=60 Estimated GFR (Non- Trang 21 >=60 BUN Creatinine Ratio 20.5 Calcium 9.0 8.5-10.1 mg/dL Bilirubin Total 0.6 0.2-1.0 mg/dL Aspartate Amino Transferase 21 15-37 U/L Alanine Aminotransferase 44 14-59 U/L Alkaline Phosphatase 76 46-116 U/L Total Protein 6.4 6.4-8.2 g/dL Albumin Level 3.0 3.4-5.0 g/dL Globulin 3.4 Albumin Globulin Ratio 0.9 Performing Lab: see note ML - [facility] LB FREE T3 Reviewed date:06/18/2024 09:50:39 PM Interpretation: Performing Lab: Notes/Report: [facility] , Free T3 1.52 2.18-3.98 pg/mL Performing Lab: see note ML - [facility] LB CBC AUTO DIFF Reviewed date:06/18/2024 09:50:39 PM Interpretation: Performing Lab: Notes/Report: [facility] , White Blood Count 7.1 4.0-11.0 10 3/uL Red Blood Count 3.10 4.20-5.40 10 6/uL Hemoglobin 9.5 12.0-16.0 g/dL Hematocrit 28.5 36.0-48.0 % Mean Corpuscular Volume 91.9 81.0-99.0 fL Mean Corpuscular Hemoglobin 30.6 26.7-34.0 pg Mean Corpuscular HGB Conc 33.3 29.9-35.2 g/dL Red Cell Distribution Width 15.6 11.0-15.0 % Platelet Count 217 150-450 10 3/uL Mean Platelet Volume 9.7 9.5-13.5 fL Neutrophils Percent Auto 63.1 43.0-75.0 % Lymphocytes Percent Auto 25.1 20.5-60.0 % Monocytes Percent Auto 9.9 1.7-12.0 % Eosinophils Percent Auto 0.8 0.9-7.0 % Basophils Percent Auto 0.3 0.2-2.0 % Immature Granulocytes Pct Auto 0.8 0.0-0.5 % Neutrophils Absolute Auto 4.5 1.4-6.5 10 3/uL Lymphocytes Absolute Auto 1.8 1.2-3.8 10 3/uL Monocytes Absolute Auto 0.7 0.3-0.8 10 3/uL Eosinophils Absolute Auto 0.1 0.0-0.7 10 3/uL Basophils Absolute Auto 0.0 0.0-0.1 10 3/uL Immature Granulocytes Abs Auto 0.06 0.00-0.03 10 3/uL Performing Lab: see note - [facility] CBC no Diff (Hemogram) Reviewed date:06/09/2024 08:59:57 PM Interpretation: Performing Lab: Notes/Report: [facility] , White Blood Count 6.8 4.0-11.0 10 3/uL Red Blood Count 3.17 4.20-5.40 10 6/uL Hemoglobin 9.8 12.0-16.0 g/dL Hematocrit 29.0 36.0-48.0 % Mean Corpuscular Volume 91.5 81.0-99.0 fL Mean Corpuscular Hemoglobin 30.9 26.7-34.0 pg Mean Corpuscular HGB Conc 33.8 29.9-35.2 g/dL Red Cell Distribution Width 15.2 11.0-15.0 % Platelet Count 207 150-450 10 3/uL Mean Platelet Volume 9.6 9.5-13.5 fL Performing Lab: see note [facility] VITAMIN D 25 [place] Reviewed date:06/09/2024 08:59:57 PM Interpretation: Performing Lab: Notes/Report: [facility] , Vitamin D 39.9 <20 ng/mL Vit D deficient 20-<30 ng/mL Vit D insufficient 30-100 ng/mL Vit D sufficient >100 ng/mL Potential Toxicity Performing Lab: see note - [facility] LB URINE T PROTEIN CREAT RATIO Reviewed date:06/09/2024 08:59:57 PM Interpretation: Performing Lab: Notes/Report: [facility] , Total Protein Urine Random 77.8 <=11.9 mg/dL Creatinine Urine Random 117.64 20.00-30 0.00 mg/dL Protein Creatinine Ratio Urine 0.66 Performing Lab: see note - [facility] LB FERRITIN Reviewed date:06/09/2024 08:59:57 PM Interpretation: Performing Lab: Notes/Report: [facility] , Ferritin 792.0 8.0-252.0 ng/mL Performing Lab: see note ML - [facility] LB Urine Culture, Routine Reviewed date:05/31/2024 10:41:39 PM Interpretation: Performing Lab: Notes/Report: [facility] , Urine Culture, Routine See Below For Report Urine Culture, Routine Urine Culture, Routine No growth Urine Culture, Routine Urine Culture, Routine Performed at: [facility], Routine Urine Culture, Routine [address], [place] [id number] Urine Culture, Routine Urine Culture, Routine Aquatics Lifeguard: Lavell Benson PhD, Phone: [phone] Urine Culture, Routine Performing Lab: see note LC - [facility] LB SEE REPORT - Eyeglass Cutter Id information not found for OBX-specific coordinating producer legend PROF 14(COMP METB) Reviewed date:05/28/2024 11:29:23 AM Interpretation: Performing Lab: Notes/Report: [facility] , Sodium 133 136-145 mmol/L Potassium 4.8 3.5-5.1 mmol/L Chloride 100 98-107 mmol/L Carbon Dioxide 23.5 21.0-32.0 mmol/L Anion Gap 14.3 Glucose 224 74-106 mg/dL Blood Urea Nitrogen 41.0 7.0-18.0 mg/dL Creatinine 1.78 0.55-1.02 mg/dL Estimated GFR ( Shruthi 33 >=60 Estimated GFR (Non- Trang 27 >=60 BUN Creatinine Ratio 23.0 Calcium 9.0 8.5-10.1 mg/dL Bilirubin Total 0.8 0.2-1.0 mg/dL Aspartate Amino Transferase 22 15-37 U/L Alanine Aminotransferase 52 14-59 U/L Alkaline Phosphatase 74 46-116 U/L Total Protein 6.7 6.4-8.2 g/dL Albumin Level 3.0 3.4-5.0 g/dL Globulin 3.7 Albumin Globulin Ratio 0.8 Performing Lab: see note ML - [facility] LB CA echo limited Reviewed date:03/03/2024 03:01:12 PM Interpretation: Performing Lab: Notes/Report: Source Facility: [place] [address] [address] Cardiology Report Signed Patient: KYLAH ROBIN MR#: [id number] : 1945 Acct:[id number] Age/Sex: 78 / F ADM Date: 03/01/24 Loc: ICU 276-[address]: Dhruv Rubi M.D. Ordering Physician: Tika Chacon D.O. Date of Service: 03/02/24 Procedure(s): CA echo limited Accession Number(s): [id number] cc: Dhruv Rubi M.D.; Tika Chacon D.O. Patient Name: KYLAH ROBIN MR#: [id number] : 1945 Exam Date: 03/02/2024 Ordering Doctor: TIKA CHACON . ECHOCARDIOGRAM REPORT PROCEDURE: CA ECHO LIMITED INDICATIONS: CP/HTN Urgency COMPARISON: None. DESCRIPTION: Limited ECHOCARDIOGRAM Real-time transthoracic echocardiography with 2D and M-mode performed. QUALITY: Technical quality was good. LEFT VENTRICLE: Normal chamber size. Moderate to severe concentric left ventricular hypertrophy. Global left ventricular systolic function is hyperdynamic. LV EF: Visual estimation of left ventricular ejection fraction is 75% which appears unchanged from previous study of 01/22/24. DIASTOLIC: ATRIAL SEPTUM: LEFT ATRIUM: Moderate dilatation. RIGHT ATRIUM: Normal chamber size. RIGHT VENTRICLE: Normal chamber size. Normal right ventricular systolic function. TRICUSPID VALVE: Normal mobility and thickness. MITRAL VALVE: Normal mobility and thickness. Moderate mitral annular calcification. An echogenic mobile density is seen attached to the atrial surface of the posterior mitral leaflet, but could represent an imaging artifact. AORTIC VALVE: Normal trileaflet appearance. Normal leaflet mobility. AORTIC ROOT: Normal diameter and appearance. PULMONIC VALVE: Normal thickness and mobility. PERICARDIUM: No evidence of pericardial effusion. IVC: Collapses with inspirations. Normal size. PLEURA: CONCLUSION: 1. Moderate to severe left ventricular [...] performed with no Doppler interrogation as requested. Adult Echocardiography Procedure Report Left Ventricle LVEDD (3.7 - 5.6 cm): 4.05 cm LVESD (2.2 - 4.0 cm): 2.67 cm LVIVS thickness (0.6 - 1.2 cm): 1.45 cm LVPW thickness (0.5 - 1.0 cm): 1.37 cm LVOT Diameter 1.96 cm Left Ventricular Ejection Fraction: 69.56 % Left Atrium LA Volume Index (2D A2C): 47.44 ml/m2 Left Atrium Systolic Dimension: 4.86 cm Mitral Valve Right Ventricle RV Internal Diastolic Dimension: 2.94 cm Aorta AO Root Diam: 3.15 cm Aortic Valve Tricuspid Valve Pulmonic Valve Right Atrium Right Atrium Systolic Pressure: 23.45 ml, 23.45 ml Dictated by: Hernando Latham M.D. on 03/03/2024 at 07:20 Approved by: Hernando Latham M.D. on 03/03/2024 at 07:28 Dictated By: HERNANDO LATHAM Signed By: 03/03/24728 DD/ 7 TD/TT: Powertrain Design Engineer: [place] [address] Cardiology Report Signed Patient: CINDI ROBIN MR#: [id number] : 1945 Acct:[id number] Age/Sex: 78 / F ADM Date: 03/01/24 Loc: ICU 276-[address]: Violeta Rubi M.D. Ordering Physician: Tika Chacon D.O. Date of Service: 03/02/24 Procedure(s): CA ech o limited Accession Number(s): [id number] cc: Dhruv Rubi M.D. ; Tika Chacon D.O. Patient Name: KYLAH ROBIN MR#: [id number] : 1945 Exam Date: 03/02/2024 Ordering Doctor: NONI CHACON . ECHOCARDIOGRAM REPORT PROCEDURE: CA ECHO LIMITED INDICATIONS: CP/HTN Urgency COMPARISON: None. DESCRIPTION: Limited ECHOCARDIOGRAM Real-time transthoracic echocardiography wit h 2D and M-mode performed. QUALITY: Technical quality was good. LEFT VENTRICLE: Norm al chamber size. Moderate to severe concentric left ventricular hypertro phy. Global left ventricular systolic function is hyperdynamic. LV EF: Visual estima tion of left ventricular ejection fraction is 75% which appears unchan ged from previous study of 01/22/24. DIASTOLIC: ATRIAL SEPTUM: LEFT ATRIUM: Moderat e dilatation. RIGHT ATRIUM: Normal chamber size. RIGHT VENTRICLE: Nor mal chamber size. Normal right ventricular systolic function. TRICUSPID VALVE: Nor mal mobility and thickness. MITRAL VALVE: Normal mobility and thickness. Moderate mitral annular calcification. An echogenic mobile density is seen attached to the atrial surface of the poste rior mitral leaflet, but could represent an imaging artifact. AORTIC VALVE: Normal trileaflet appearance. Normal leaflet mobility. AORTIC ROOT: Normal diameter and appearance. PULMONIC VALVE: Norm al thickness and mobility. PERICARDIUM: No evid ence of pericardial effusion. IVC: Collapses with inspirations. Normal size. PLEURA: CONCLUSION: 1. Moderate to sever e left ventricular concentric hypertrophy with hyperdynamic systoli c function. LVEF is 75%. 2. Normal right ventricular size and systolic function. 3. An echogenic mobi le density is seen attached to the atrial surface of the posterior mitral shankar flet, but could represent an imaging artifact. Depending on the clinical pict ure this can be investigated by further imaging such as transesophageal echocardiogram. 4. Limited study performed with no Doppler interrogation as requested. Adult Echocardiograp hy Procedure Report Left Ventricle LVEDD (3.7 - 5.6 cm) : 4.05 cm LVESD (2.2 - 4.0 cm) : 2.67 cm LVIVS thickness (0.6 - 1.2 cm): 1.45 cm LVPW thickness (0.5 - 1.0 cm): 1.37 cm LVOT Diameter 1.96 cm Left Ventricular Eje ction Fraction: 69.56 % Left Atrium LA Volume Index (2D A2C): 47.44 ml/m2 Left Atrium Systolic Dimension: 4.86 cm Mitral Valve Right Ventricle RV Internal Diastoli c Dimension: 2.94 cm Aorta AO Root Diam: 3.15 cm Aortic Valve Tricuspid Valve Pulmonic Valve Right Atrium Right Atrium Systoli c Pressure: 23.45 ml, 23.45 ml Dictated by: Hernando Latham M.D. on 03/03/2024 at 07:20 Approved by: Hernando Latham M.D. on 03/03/2024 at 07:28 Dictated By: HERNANDO LATHAM Signed By: 03/03/24728 DD/ 7 TD/TT: Powertrain Design Engineer: PROF Dyson(COMP METB) Reviewed date:03/03/2024 03:01:12 PM Interpretation: Performing Lab: Notes/Report: [facility] , Sodium 137 136-145 mmol/L Potassium 4.6 3.5-5.1 mmol/L Chloride 104 98-107 mmol/L Carbon Dioxide 23.7 21.0-32.0 mmol/L Anion Gap 13.9 Glucose 165 74-106 mg/dL Blood Urea Nitrogen 41.0 7.0-18.0 mg/dL Creatinine 1.93 0.55-1.02 mg/dL Estimated GFR ( Shruthi 30 >=60 Estimated GFR (Non- Trang 25 >=60 BUN Creatinine Ratio 21.2 Calcium 9.0 8.5-10.1 mg/dL Bilirubin Total 0.6 0.2-1.0 mg/dL Aspartate Amino Transferase 18 15-37 U/L Alanine Aminotransferase 23 14-59 U/L Alkaline Phosphatase 87 46-116 U/L Total Protein 6.6 6.4-8.2 g/dL Albumin Level 3.1 3.4-5.0 g/dL Globulin 3.5 Albumin Globulin Ratio 0.9 Performing Lab: see note ML - [facility] LB CBC AUTO DIFF Reviewed date:03/03/2024 03:01:12 PM Interpretation: Performing Lab: Notes/Report: [facility] , White Blood Count 5.6 4.0-11.0 10 3/uL Red Blood Count 2.88 4.20-5.40 10 6/uL Hemoglobin 8.6 12.0-16.0 g/dL Hematocrit 26.6 36.0-48.0 % Mean Corpuscular Volume 92.4 81.0-99.0 fL Mean Corpuscular Hemoglobin 29.9 26.7-34.0 pg Mean Corpuscular HGB Conc 32.3 29.9-35.2 g/dL Red Cell Distribution Width 15.2 11.0-15.0 % Platelet Count 188 150-450 10 3/uL Mean Platelet Volume 9.9 9.5-13.5 fL Neutrophils Percent Auto 55.1 43.0-75.0 % Lymphocytes Percent Auto 31.0 20.5-60.0 % Monocytes Percent Auto 10.0 1.7-12.0 % Eosinophils Percent Auto 2.8 0.9-7.0 % Basophils Percent Auto 0.7 0.2-2.0 % Immature Granulocytes Pct Auto 0.4 0.0-0.5 % Neutrophils Absolute Auto 3.1 1.4-6.5 10 3/uL Lymphocytes Absolute Auto 1.7 1.2-3.8 10 3/uL Monocytes Absolute Auto 0.6 0.3-0.8 10 3/uL Eosinophils Absolute Auto 0.2 0.0-0.7 10 3/uL Basophils Absolute Auto 0.0 0.0-0.1 10 3/uL Immature Granulocytes Abs Auto 0.02 0.00-0.03 10 3/uL Performing Lab: see note ML - [facility] LB BNP Reviewed date:03/03/2024 03:01:12 PM Interpretation: Performing Lab: Notes/Report: [facility] , NT Pro B Type Natriuretic Pept 868.0 <=1800.0 pg/mL Performing Lab: see note ML - [facility] Troponin I High Sensitivity Reviewed date:05/28/2024 11:29:23 AM Interpretation: Performing Lab: Notes/Report: [facility] , Troponin I High Sensitivity 8.5 4.0-51.3 pg/mL CUT-OFF POINTS HAVE BEEN ESTABLISHED BASED ON THE FOURTH UNIVERSAL DEFINITION OF MYOCARDIAL INFARCTION. THE UPPER REFERENCE LIMIT (URL) OF TROPONIN, DEFINED THE 99TH PERCENTILE OF cTnI DISTRIBUTION IN A REFERENCE POPULATION, HAS BEEN CONFIRMED THE DECISION THRESHOLD FOR MT DIAGNOSIS. 99TH PERCENTILE = 51.4 PG/ML NOTE: HIGH-SENSITIVITY TROPONIN ASSAY IS NOT INTENDED TO BE USED IN ISOLATION BUT SHOULD BE INTERPRETED IN CONJUNCTION WITH OTHER DIAGNOSTIC AND CLINICAL INFORMATION. Performing Lab: see note ML - [facility] LB BNP Reviewed date:05/28/2024 11:29:23 AM Interpretation: Performing Lab: Notes/Report: [facility] , NT Pro B Type Natriuretic Pept 1529.0 <=1800.0 pg/mL Performing Lab: see note ML - [facility] LB CBC AUTO DIFF Reviewed date:12/31/2024 08:41:15 PM Interpretation: Performing Lab: Notes/Report: [facility] , White Blood Count 7.2 4.0-11.0 10 3/uL Red Blood Count 3.32 4.20-5.40 10 6/uL Hemoglobin 10.2 12.0-16.0 g/dL Hematocrit 30.6 36.0-48.0 % Mean Corpuscular Volume 92.2 81.0-99.0 fL Mean Corpuscular Hemoglobin 30.7 26.7-34.0 pg Mean Corpuscular HGB Conc 33.3 29.9-35.2 g/dL Red Cell Distribution Width 15.3 11.0-15.0 % Platelet Count 203 150-450 10 3/uL Mean Platelet Volume 9.5 9.5-13.5 fL Neutrophils Percent Auto 66.6 43.0-75.0 % Lymphocytes Percent Auto 23.0 20.5-60.0 % Monocytes Percent Auto 7.5 1.7-12.0 % Eosinophils Percent Auto 1.9 0.9-7.0 % Basophils Percent Auto 0.6 0.2-2.0 % Immature Granulocytes Pct Auto 0.4 0.0-0.5 % Neutrophils Absolute Auto 4.8 1.4-6.5 10 3/uL Lymphocytes Absolute Auto 1.7 1.2-3.8 10 3/uL Monocytes Absolute Auto 0.5 0.3-0.8 10 3/uL Eosinophils Absolute Auto 0.1 0.0-0.7 10 3/uL Basophils Absolute Auto 0.0 0.0-0.1 10 3/uL Immature Granulocytes Abs Auto 0.03 0.00-0.03 10 3/uL Performing Lab: see note ML - [facility] LB BNP Reviewed date:12/31/2024 08:41:15 PM Interpretation: Performing Lab: Notes/Report: [facility] , NT Pro B Type Natriuretic Pept 1558.0 <=1800.0 pg/mL Performing Lab: see note - [facility] LB PTH, Intact Reviewed date:01/06/2025 08:09:23 PM Interpretation: Performing Lab: Notes/Report: [facility] , PTH, Intact 73 15-65 pg/mL Performed at: - [facility] [address] [id number] Aquatics Lifeguard: Ashok Benson PhD, Phone: [phone] Performing Lab: see note LC - [facility] LB Reason For Referral No Information Medications Medication SIG (Take, Route, Frequency, Duration) Notes Start Date End Date Status hydrALAZINE HCl 50 MG 1 tablet with food Orally Three times a day Active Ferrous Sulfate 325 (65 Fe) MG 1 tablet Orally Twice Daily Active OneTouch Ultra 2 Act janet NovoLOG FlexPen 100 UNIT/ML 12 in mornin g, 16 at lunch, 22 at supper Subcutaneous Active Carvedilol 25 mg TAKE 1 TABLET BY CHA TH TWICE DAILY (7AM and 7PM) WITH FOOD for 30 Active Nitroglycerin 0.4 MG as directed Sublingual PRN Active Magnesium Oxide 400 MG 1 tablet Orally t hree times daily Active Aspirin 81 81 MG 1 tablet Orally Once a day Active Lipitor 80 MG 1 tablet Orally Once a day Active Allopurinol 300 MG 1 tablet Orally Once a day for 30 days Active Liothyronine Sodium 5 mcg TAKE 2 TABLETS BY MOUTH ON AN EMPTY STOMACH DAILY for 30 days Active OneTouch Ultra Test test blood glucose d aily for 90 days Active Accu-Chek Holly Plus w/Device as directed Active Levothyroxine Sodium 100 MCG 1 tablet in the morning on an empty stomach Orally Once a day for 90 days Active Tresiba FlexTouch 100 UNIT/ML 30 units Subcutaneous Twice Daily Active Lasix 20 MG 1 tablet Orally Once a day Active Lancets Super Thin A ctive Protonix 40 MG 1 tablet Orally Once a day for 90 days Active Isosorbide Mononitrate ER 120 MG 1 tablet Oral once daily for 30 days Active OneTouch Ultra Blue Active cloNIDine HCl 0.1 MG 1 tablet every four hours as needed Orally Q4 for 30 days As needed Active Immunizations Vaccine Route Administration Date Status Comme nts Flu, Fluad (0536-2761) (38891) 65 yrs+, single-dose syringe IM Intramuscular 07/11/2023 Administered Flu, Fluad (96373) 65 yrs and older, single-dose syringe IM Intramuscular 07/08/2024 Administered Social History Tobacco Use: Social History Observation Description Date Details (start date - stop date) Never Smoker NA - NA Tobacco Use/Smoking Question Answer Notes Patient is a nonsmoker Alcohol Screen (Audit-C) Question Answer Notes Did you have a drink containing alcohol in the p ast year? No Points 0 Interpretation Negative AUDIT-C (Standard) Question Answer Notes Did you have a drink containing alcohol in the p ast year? No Points 0 Interpretation Negative Problems Problem Type SNOMED Code ICD Code Onset Dates Problem Status W/U Status Risk Notes Problem 133822786 Peripheral vascular disease, unspecified (I73.9) Active confirmed Problem 59296913 Age-related osteoporosis without current pathological fracture (M81.0) Active confirmed Problem 429924633 Chronic kidney disease, unspecified (N18.9) Active confirmed Problem 646642602 Anemia in chroni c kidney disease (D63.1) Active confirmed Problem Hypomagnesemia (979571325) Hypomagnesemia (E83.42) Active confirmed Problem Hyperkalemia (63081924) Hyperkalemia (E87.5) Active confirmed Problem Hypertensive heart failure (36160684) Hypertensive heart disease with heart failure (I11.0) Active confirmed Problem Unstable angina (2499069) Unstable angina (I20.0) Active confirmed Problem 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) Active confirmed Problem 391150607 Disorder of arteries and arterioles, unspecified (I77.9) Active confirmed Problem Osteoarthritis of knee (532461033) Unilateral primary osteoarthritis, left knee (M17.12) Active confirmed Problem Collapsed vertebra (35472437) Collapsed vertebra, not elsewhere classified, lumbar region, subsequent encounter for fracture with delayed healing (M48.56XG) Active confirmed Problem Chronic kidney disease stage 4 (122240355) Chronic kidney disease, stage 4 (severe) (N18.4) Active confirmed Problem Chest pain (48063613) Chest pain (R07.9) Active confirmed Problem Hyperlipidemia (23551998) Hyperlipidemia (E78.5) Active confirmed Problem Mitral regurgitation (47594608) Mitral regurgitation (I34.0) Active confirmed Problem Hypertension (25722594) Hypertension (I10) Active confirmed Problem Gastroesophageal reflux disease (915135711) GERD (gastroesophageal reflux disease) (K21.9) Active confirmed Problem Hypothyroidism (77288083) Hypothyroidism (E03.9) Active confirmed Problem Coronary artery disease (14319725) CAD (coronary artery disease) (I25.10) Active confirmed Problem Hypertension (54825995) HTN (hypertension) (I10) Active confirmed Problem Edema (15413144) Edema (R60.9) Active confirmed Problem Coronary artery disease (44463051) Coronary artery disease (I25.10) Active confirmed Problem Arthritis (3143689) Arthritis (M19.90) Active c onfirmed Problem Osteopenia (449939987) Osteopenia (M85.80) Active confirmed Problem Gout (15199483) Gout (M10.9) Active confirmed Problem Dyspnea (862580600) Dyspnea (R06.00) Active con firmed Problem Urinary tract infectious disease (81623667) UTI (urinary tract infection) (N39.0) Active confirmed Problem Paroxysmal atrial fibrillation (917999653) Paroxysmal atrial fibrillation (I48.0) Active confirmed Problem Acute sinusitis (67716782) Acute sinusitis (J01.90) Active confirmed Problem Allergic rhinitis (38356846) Allergic rhinitis (J30.9) Active confirmed Problem Diabetes mellitus type 2 (disorder) (66262980) DM2 (diabetes mellitus, type 2) (E11.9) Active confirmed Problem Long-term 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 (856172749) detention 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 (Z79.4) Active confirmed Problem Acute bronchitis (48718388) Acute bronchitis (J20.9) Active confirmed Problem Acquired hypothyroidism (162761243) Acquired hypothyroidism (E03.9) Active confirmed Problem Cellulitis (771559731) Cellulitis (L03.90) Active confirmed Problem Cataract (245708842) Cataract (H26.9) Active confirmed Problem Mitral insufficiency (91310413) Mitral insufficiency (I34.0) Active confirmed Problem Contact dermatitis (31180402) Contact dermatitis (L25.9) Active confirmed Problem Cervical arthritis (762253559) Cervical arthritis (M46.92) Active confirmed Problem Diabetic retinopathy (2282929) Diabetic retinopathy (E11.319) Active confirmed Problem 175438237 Low vitamin B12 level (E53.8) Active confirmed Problem Overweight (238983231) Over weight (E66.3) Active confirmed Problem Iron deficiency anemia (18194612) Anemia, iron deficiency (D50.9) Active confirmed Problem Ventricular hypertrophy (614694637) Ventricular hypertrophy (I51.7) Active confirmed Problem Primary hypothyroidism (71569371) Primary hypothyroidism (E03.9) Active confirmed Problem Iron deficiency anemia (28160857) Fe deficiency anemia (D50.9) Active confirmed Problem Hypertensive urgency (032568226) Hypertensive urgency (I10) Active confirmed Problem Vaginal discharge (011499354) Vaginal discharge (N89.8) Active confirmed Problem Type 2 diabetes mellitus with peripheral angiopathy (571234073) Diabetes mellitus type 2 with peripheral artery disease (E11.51) Active confirmed Problem At risk for falls (160211384) At risk for falls (Z91.81) Active confirmed Problem Mild nonproliferative retinopathy due to type 2 diabetes mellitus (734526164734142) Type 2 diabetes mellitus 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, 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) Active confirmed Problem Hypertensive urgency (546366788) Hypertensive urgency (I16.0) Active confirmed Problem Hypertensive emergency (608004574287256) Hypertensive emergency (I16.1) Active confirmed Problem Diabetic renal disease (004906004) 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) Active confirmed Problem Diabetes mellitus (03336969) Diabetes mellitus (E11.9) Active confirmed Problem COVID-19 (733430019) COVID-19 (U07.1) Active confirmed Problem Chronic kidney disease stage 4 (425735474) Acute worsening of stage 4 chronic kidney disease (N18.4) Active confirmed Problem Pneumonia caused by Severe acute respiratory syndrome coronavirus (disorder) (122048941) Pneumonia due to Coronavirus disease 2019 (J12.82) Active confirmed Problem Low back pain (586367568) Low back pain, unspecified (M54.50) Active confirmed Problem Low back pain (finding) (923544944) Other low back pain (M54.59) Active confirmed Vital Signs Heart Rate 67 /min 12/31/2024 Temperature 98.0 degrees Fahrenheit 04/15/2024 Oximetry 98 % 12/31/2024 Blood pressure diastolic 78 mm Hg 12/31/2024 Height 66 in 12/31/2024 Blood pressure systolic 180 mm Hg 12/31/2024 Weight 192 lbs 12/31/2024 BMI 30.99 kg/m2 12/31/2024 Encounters Encounter Location Date Provider Diagnosis [place] [address] [facility] [place] [address] 12/22/2024 Jeff Connellymary [facility] [address] [facility] [place] [address] 01/18/2025 Jeff Connellyy [facility] [address] [facility] [place] [address] 01/18/2025 Jeff Connellyy [facility] [address] [facility] [place] [address] 02/16/2025 Jeff Connellyy [facility] [address] [facility] [place] [address] 03/03/2025 Jeff Hoy Right knee pain M25. 561 [facility] [address] [facility] [place] [address] 09/04/2024 Jeff Hoy UTI (urinary tract infection) N39.0 [facility] [address] [facility] [place] [address] 09/04/2024 Jeff Rubi [facility] [address] [facility] [place] [address] 09/07/2024 Jeff Hoy UTI (urinary tract infection) N39.0 [facility] [address] [facility] [place] [address] 11/24/2024 Jeff Rubi [facility] [address] [facility] [place] [address] 12/16/2024 Jeff Hoy Chronic kidney disea se, stage 4 (severe) N18.4 [facility] [address] [facility] [place] [address] 12/17/2024 Jeff Hoy Chronic kidney disea se, stage 4 (severe) N18.4 [facility] [address] [facility] [place] [address] 06/18/2024 Jeff Rubi [facility] [address] [facility] [place] [address] 06/26/2024 Jeff Rubi [facility] [address] [facility] [place] [address] 06/29/2024 Jeff Rubi [facility] [address] [facility] [place] [address] 08/14/2024 Jeff Rubi [facility] [address] [place] [address] 09/02/2024 Jeff Rubi [facility] [address] [facility] [place] [address] 09/02/2024 Jeff Rubi [facility] [address] [place] [address] 03/18/2024 DHRUV RUBI [facility] [address] [place] [address] 03/20/2024 DHRUV RUBI Chronic kidney disea se, stage 4 (severe) N18.4 [facility] [address] [facility] [place] [address] 05/12/2024 Jeff Rubi [facility] [address] [facility] [place] [address] 05/28/2024 Jeff Rubi Chest pain R07.9 ; Hypertension I10 ; Acute UTI N39.0 ; Chronic kidney disease, stage 4 (severe) N18.4 ; Hyperkalemia E87.5 and Anemia, unspecified D64.9 [facility] [address] [facility] [place] [address] 06/10/2024 Jeff Rubi [facility] [address] [place] [address] 06/09/2024 Jeff Rubi Encounter for Medica re annual wellness exam Z00.00 and Age-related osteoporosis without current pathological fracture M81.0 [facility] [address] [facility] [place] [address] 03/09/2024 DHRUV RUBI Low vitamin B12 leve l E53.8 and Hypertension I10 [facility] [address] [facility] [place] [address] 04/30/2024 Jeff Rubi Contact dermatitis L25.9 [facility] [address] [place] [address] 06/18/2024 Jeff Hoy Chest pain R07.9 and Hypertension I10 [facility] [address] [place] [address] 09/22/2024 Jeff Hoy Dyspnea R06.00 and Acute bronchitis J20.9 [facility] [address] [place] [address] 12/31/2024 Jeff Hoy Chest pain R07.9 ; Hypertension I10 ; Coronary artery disease I25.10 and Dyspnea R06.00 [facility] [address] [place] [address] 04/15/2024 Jeff Hoy Acute non-recurrent sinusitis, unspecified location J01.90 and Nasal congestion R09.81 [facility] [address] [place] [address] 11/18/2024 Jeff Hoy Paroxysmal atrial fibrillation I48.0 ; Chronic kidney disease, stage 4 (severe) N18.4 ; Acute worsening of stage 4 chronic kidney disease N18.4 ; Hypertensive heart disease with heart failure I11.0 and Chronic kidney disease due to diabetes mellitus E11.22 [address] [place] [address] 11/24/2024 Jeff Hoy HTN (hypertension) I 10 [address] [place] [address] 10/13/2024 Jeff Hoy Low vitamin B12 leve l E53.8 [address] [place] [address] 11/13/2024 Jeff Hoy Low vitamin B12 leve l E53.8 [address] [place] [address] 12/11/2024 Jeff Hoy Low vitamin B12 leve l E53.8 [facility] [address] [place] [address] 01/11/2025 Jeff Hoy Low vitamin B12 leve l E53.8 [address] [place] [address] 02/10/2025 Jeff Hoy Low vitamin B12 leve l E53.8 [facility] [address] [facility] [place] [address] 04/10/2024 Jeff Hoy Low vitamin B12 leve l E53.8 [facility] [address] [facility] [place] [address] 05/12/2024 Jeff Hoy Low vitamin B12 leve l E53.8 [facility] [address] [facility] [place] [address] 06/15/2024 Jeff Hoy Low vitamin B12 leve l E53.8 [facility] [address] [facility] [place] [address] 07/08/2024 Jeff Connellyy Encounter for immunization Z23 [facility] [address] [place] [address] 08/10/2024 Jeff Hoy Low vitamin B12 leve l E53.8 Assessments Encounter Date Diagnosis (ICD Code) Assessment Notes Treatment Notes Treatment Clinical Notes Section Notes 06/18/2024 Chest pain (ICD-10 - R07.9) 06/18/2024 Hypertension (ICD-10 - I10) 07/08/2024 Encounter for immunization (ICD-10 - Z23) 08/10/2024 Low vitamin B12 level (ICD-10 - E53.8) 09/22/2024 Dyspnea (ICD-10 - R06.00) 09/22/2024 Acute bronchitis (ICD-10 - J20.9) 10/13/2024 Low vitamin B12 level (ICD-10 - E53.8) 11/13/2024 Low vitamin B12 level (ICD-10 - E53.8) 11/18/2024 Paroxysmal atrial fibrillation (ICD-10 - I48.0) 11/18/2024 Chronic kidney disease, stage 4 (severe) (ICD-10 - N18.4) 03/09/2024 Low vitamin B12 level (ICD-10 - E53.8) 03/09/2024 Hypertension (ICD-10 - I10) 04/10/2024 Low vitamin B12 level (ICD-10 - E53.8) 04/15/2024 Acute non-recurrent sinusitis, unspecified location (ICD-10 - J01.90) Rest and drink more liquids, especially water. You may use a humidifier or vaporizer to help keep the drainage moist. Cutm-cvc-fnyykml Nasal Saline may help the stuffy and runny nose. Use Ibuprofen and or Tylenol as needed for fever, chills, body aches or pain. Children 5 years old should not be given trme-ekw-aqemgyd cough and cold medications such as guaifenesin and dextromethorphan. If you're over age 5, you may try xtew-bnq-zhptsac cold medications such as guaifenesin and dextromethorphan, or multi-symptom cold reliever such as Dayquil to help reduce the symptoms. Antibiotics have been prescribed. You should take these until completed and follow the directions. Antibiotics can sometimes cause upset stomach, and in rare cases, serious allergic reactions or serious gastrointestinal problems. If you start having severe abdominal pain, severe vomiting, or bloody diarrhea, you should be reevaluated by your physician or urgent care immediately. Follow up with your Primary Care Provider or return to clinic if symptoms do not improve within 3-5 days 04/30/2024 Contact dermatitis (ICD-10 - L25.9) shot and cream today - calling back if not better 05/12/2024 Low vitamin B12 level (ICD-10 - E53.8) 06/09/2024 Encounter for Medicare annual wellness exam (ICD-10 - Z00.00) 06/09/2024 Age-related osteoporosis without current pathological fracture (ICD-10 - M81.0) 06/15/2024 Low vitamin B12 level (ICD-10 - E53.8) 11/24/2024 HTN (hypertension) (ICD-10 - I10) 12/11/2024 Low vitamin B12 level (ICD-10 - E53.8) 12/31/2024 Chest pain (ICD-10 - R07.9) doubling lasix and repeat later today - update in am - getting labs and cxre 12/31/2024 Hypertension (ICD-10 - I10) 01/11/2025 Low vitamin B12 level (ICD-10 - E53.8) 02/10/2025 Low vitamin B12 level (ICD-10 - E53.8) 03/20/2024 Chronic kidney disease, stage 4 (severe) (ICD-10 - N18.4) 05/28/2024 Chest pain (ICD-10 - R07.9) 05/28/2024 Hypertension (ICD-10 - I10) 09/04/2024 UTI (urinary tract infection) (ICD-10 - N39.0) 09/07/2024 UTI (urinary tract infection) (ICD-10 - N39.0) 12/16/2024 Chronic kidney disease, stage 4 (severe) (ICD-10 - N18.4) 12/17/2024 Chronic kidney disease, stage 4 (severe) (ICD-10 - N18.4) 03/03/2025 Right knee pain (ICD-10 - M25.561) 05/28/2024 Acute UTI (ICD-10 - N39.0) 12/31/2024 Coronary artery disease (ICD-10 - I25.10) 04/15/2024 Nasal congestion (ICD-10 - R09.81) 11/18/2024 Acute worsening of stage 4 chronic kidney disease (ICD-10 - N18.4) 11/18/2024 Hypertensive heart disease with heart failure (ICD-10 - I11.0) iner with hypertensive urgency - 12/31/2024 Dyspnea (ICD-10 - R06.00) 05/28/2024 Chronic kidney disease, stage 4 (severe) (ICD-10 - N18.4) 05/28/2024 Hyperkalemia (ICD-10 - E87.5) 11/18/2024 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) 05/28/2024 Anemia, unspecified (ICD-10 - D64.9) Plan Of Treatment Pending Test Test Name Order Date CMP (COMPLETE METABOLIC PANEL) CMP (COMPLETE METABOLIC PANEL) UA (URINALYSIS, COMPLETE) 01/17/2024 UA (URINALYSIS, COMPLETE) 05/28/2024 UA (URINALYSIS, COMPLETE) 10/01/2023 UA (URINALYSIS, COMPLETE) 01/09/2024 UA (URINALYSIS, COMPLETE) 07/23/2023 UA (URINALYSIS, COMPLETE) 07/23/2023 CBC WITH DIFF 06/18/2024 Urinalysis Microscopic 07/23/2023 Urinalysis Microscopic 06/18/2024 Urinalysis Microscopic 09/04/2024 Urine Culture 07/23/2023 Urine Culture 10/01/2023 Urine Culture 01/09/2024 Urine Culture 01/17/2024 URINE CULTURE 05/28/2024 URINE CULTURE 10/01/2023 URINALYSIS 10/01/2023 CMP - Comprehensive Metabolic Panel 05/08 CBC W/AUTO DIFF 05/28/2024 High Sensitivity Troponin 12/31/2024 W[place]ESKA Ankle Brachial Index (89952) 024 BNP 06/18/2024 CULTURE URINE 06/18/2024 CULTURE URINE 07/23/2023 CULTURE URINE 09/04/2024 URINE MICROSCOPIC ONLY 01/09/2024 URINE MICROSCOPIC ONLY 10/01/2023 URINE MICROSCOPIC ONLY 05/28/2024 XR CHEST 2 V 12/31/2024 XR CSPINE MIN 4 VIEWS 12/30/2023 XR DEXA BONE DENSITY 06/09/2024 XR KNEE RT 3V 03/03/2025 THYROID PANEL (T4/TSH/FREE T3) 4 Insurance Providers Payer Name Payer Address Payer Phone Subscriber Number Group Number Insured Name Patient Relationship to Insured Coverage Start Date Coverage End Date [employer] [address] [place], [place] [id number] Kylah Robin Self - patient is the insured 2 Medications Administered Medication Instructions Date of Administration Dosage Notes Cyanocobalamin 01/14/2023 1 mL Cyanocobalamin 02/12/2023 1 mL Cyanocobalamin 03/18/2023 1 mL Cyanocobalamin 04/17/2023 1 mL Cyanocobalamin 05/20/2023 1 mL Cyanocobalamin 07/08/2023 1 mL Cyanocobalamin 08/09/2023 1 mL Cyanocobalamin 09/12/2023 1 mL Cyanocobalamin 10/15/2023 1 mL Cyanocobalamin 11/15/2023 1 mL Cyanocobalamin 12/16/2023 1 mL Cyanocobalamin 02/05/2024 1 mL Cyanocobalamin 03/09/2024 1 mL Cyanocobalamin 04/10/2024 1 mL Cyanocobalamin 05/12/2024 1 mL Cyanocobalamin 06/15/2024 1 mL Cyanocobalamin 08/10/2024 1 mL Cyanocobalamin 10/13/2024 1 mL Cyanocobalamin 11/13/2024 1 mL Cyanocobalamin 12/11/2024 1 mL Cyanocobalamin 01/11/2025 1 mL Cyanocobalamin 02/10/2025 1 mL Kenalog-40 04/30/2024 80 mg Medical (General) History Medical History History ICD Code Acute bronchitis J20.9 At risk for falls Z91.81 Collapsed vertebra, not else where classified, lumbar region, subsequent encounter for fracture with delayed healing M48.56XG Other low back pain M54.59 Over weight E66.3 Vaginal discharge N89.8 COVID-19 U07.1 Acute sinusitis J01.90 Unstable angina I20.0 Paroxysmal atrial fibrillation I48.0 Atherosclerosis of other cor onary artery bypass graft(s) with other forms of angina pectoris I25.798 Coronary artery disease I25.10 Pneumonia due to Coronavirus disease 201 9 J12.82 Hyperkalemia E87.5 Type 2 diabetes mellitus wit h mild nonproliferative diabetic retinopathy without macular edema, bilateral E11.3293 Arthritis M19.90 Chronic kidney disease, stage 4 (severe) N18.4 Diabetes mellitus type 2 with peripheral artery disease E11.51 Hypertensive urgency I16.0 Dyspnea R06.00 Low back pain, unspecified M54.50 Unilateral primary osteoarthritis, left knee M17.12 Cataract H26.9 Chest pain R07.9 Gout M10.9 Osteopenia M85.80 Edema R60.9 Allergic rhinitis J30.9 Ventricular hypertrophy I51.7 Primary hypothyroidism E03.9 Hyperlipidemia E78.5 Hypertension I10 Mitral regurgitation I34.0 Mitral insufficiency I34.0 Diabetic retinopathy E11.319 Fe deficiency anemia D50.9 GERD (gastroesophageal reflux disease) K 21.9 grade1 diastolic dysfunction left atrium mildly dilated Surgical History Surgery Date(Month/Year) Hysterectomy Gallbladder Open heart Bilat shoulder scope Sinus surgery Cataract OU Hospitalization History Reason Date(Month/Year) Hypertension 12/2023 SEE ABOVE HTN 02/2024 hypertension 01/2024
--- OUTSIDE RECORDS SUMMARY | 2025-03-03 15:20 | XMS_ITS | Encounter Summary ---
Author Organization [facility] Address [id number] [address] [place] [address] Care Team Providers Care Diamond Assorter Name Role Phone Merrick Rubi MD Primary Care Provider [phone] Encounter Details Date Type Department Care Team (Late st Contact Info) Description 12/28/2020 Orders Only [facility] [address] [place] [address] External, Scanning Provider Social History Tobacco Use [...] often do you attend chur ch or restorationism services? More than 4 times per year 12/28/2020 Do you belong to any clubs o r organizations such as oriental orthodox groups, unions, fraternal or athletic groups, or [...] Answer Date Recorded Total Score 0 12/28/2020 [facility] - Occupational [...] Recorded Do you need help finding a [facility] career center and/or a training program? [...] AM EDT documented as of this encounter Functional Status * Intimate Partner Violence Question Answer Date of Assessment Author Within the last year, have y ou been humiliated or emotionally abused in other ways by your partner or ex-partner? No 12/28/2020 3:15 PM EDT Jamie Ellison RN Within the last year, have y ou been afraid of your partner or ex-partner? No 12/28/2020 3:15 PM EDT Mika Ellison RN Within the last year, have y ou been raped or forced to have any kind of sexual activity by your partner or ex-partner? No 12/28/2020 3:15 PM Paige Herrera RN Within the last year, have y ou been kicked, hit, slapped, or otherwise physically hurt by your partner or ex-partner? No 12/28/2020 3:15 PM EDPaige Caldwell RN * Question Answer Date of Assessment Author Functional Status Independent 12/28/2020 3:16 PM Paige Herrera RN documented as of this encounter Plan of Treatment Not on file documented as of this encounter Procedures Procedure Name Priority Date/Time Associated Diagnosis Comments MULTIPLE LABS Routine 11/18/2020 MULTIPLE LABS Routine 11/17/2020 documented in this encounter Results * Multiple labs (11/18/2020) us Scanning Provider External [place] [facility] Final Result Performing Organization Address [facility] Co de Phone Number MANUALLY TRANSCRIBED RESULTS * Multiple labs (11/17/2020) us Scanning Provider External [place] [facility] Final Result Performing Organization Address [facility] Co de Phone Number MANUALLY TRANSCRIBED RESULTS documented in this encounter Visit Diagnoses Not on filedocumented in this encounter Additional Health Concerns Assessment Noted Time PHQ-9 Depression Total Score: 0 12/29/19 3:16 PM EDT documented as of this encounter Care Teams Diamond Assorter Relationship Specialty Start Date End Date Merrick Rubi MD PCP - General Family Medicine 10/20/20 documented as of this encounter
== END 2025-03-03 15:17 | disposition home or self-care (01) ==
LOC: LAB 15:17
PROVIDERS: PCP Family Medicine; Visit Provider Family Medicine
DX: M25.561 Pain in right knee (principal); M17.11 Unilateral primary osteoarthritis, right knee
CPT/HCPCS: 73562

== ENCOUNTER 2025-04-14 09:05 | Outpatient (OUT) | payer MEDICARE, SELFPAY ==
--- OUTSIDE RECORDS SUMMARY | 2025-03-15 05:15 | XMS_ITS ---
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 Name Role Phone Jeff Rubi Primary Care Provider REASON FOR VISIT b12 injection Encounters Encounter Location Date Provider Diagnosis [facility] [address] [place] [address] 03/15/2025 Jeff Rubi Low vitamin B12 leve l E53.8 Assessments Encounter Date Diagnosis (ICD Code) Assessment Notes Treatment Notes Treatment Clinical Notes Section Notes 03/15/2025 Low vitamin B12 level (ICD-10 - E53.8) Plan Of Treatment No Information Medications Administered Medication Instructions Date of Administration Dosage Notes Cyanocobalamin 03/15/2025 1 mL Progress Notes * Garima ROBINeDOB:1945 (79 yo F)Acc No.[id number]:03/15/2025 Progress Note Patient: Mercedez MEAD Provider: Ian Rubi (TTC)MD :1945 A ge:79 Y S ex:Female Date:03/15/2025 Address:[address] [place] [address] [place] [address] Check In:09:07 AM ESTCheck O ut:09:27 AM EST Subjective: * Chief Complaints: * 1 . B12 injection. * HPI: G eneral: presents to the office for a b12 injection. * Active Problem List M17.12 Unilateral primary [...] with other forms of angina pectoris Modified On:09/07/2023W/U Status:confirmed H26.9 Cataract Modified On:02/12/2023 Status:confirmed I34.0 Mitral insufficiency Modified On:02/12/2023 Status:confirmed E11.319 Diabetic retinopathy Modified On:02/12/2023 Status:confirmed E66.3 Over weight Modified On:02/12/2023 Status:confirmed I51.7 Ventricular hypertro phy Modified On:02/12/2023 Status:confirmed E03.9 Primary hypothyroidi sm Modified On:02/12/2023 Status:confirmed D50.9 Fe deficiency anemia Modified On:02/12/2023 Status:confirmed N89.8 Vaginal discharge Modified On:02/12/2023 Status:confirmed E11.51 Diabetes mellitus ty pe 2 with peripheral artery disease Modified On:01/09/2024 Status:confirmed Z91.81 At risk for falls Modified On:02/12/2023 Status:confirmed E11.3293 Type 2 diabetes diony itus 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, bilateral Modified On:02/12/2023 Status:confirmed I16.0 Hypertensive urgency Modified On:02/12/2023 Status:confirmed U07.1 COVID-19 Modified On:02/12/2023 Status:confirmed J12.82 Pneumonia due to Cor onavirus 2018 Modified On:02/12/2023 Status:confirmed M54.50 Low back pain, unspe cified Modified On:02/12/2023 Status:confirmed M54.59 Other low back pain Modified On:02/12/2023 Status:confirmed E53.8 Low vitamin B12 leve l Modified On:12/16/2023U Status:confirmed L03.90 Cellulitis Modified On:09/03/2023 Status:confirmed I77.9 Disorder of arteries and arterioles, unspecified Modified On:11/01/2023 Status:confirmed I73.9 Peripheral vascular disease, unspecified Modified On:12/05/2023 Status:confirmed N18.9 Chronic kidney disea se, unspecified Modified On:01/09/2024 Status:confirmed D63.1 Anemia in chronic ki dney disease Modified On:12/10/2023 Status:confirmed M46.92 Cervical arthritis Modified On:12/30/2023 Status:confirmed I10 HTN (hypertension) Modified On:02/13/2024 Status:confirmed N18.4 Acute worsening of s tage 4 chronic kidney disease Modified On:02/25/2024 Status:confirmed D50.9 Anemia, iron deficie ncy Modified On:02/25/2024 Status:confirmed E11.9 Diabetes mellitus Modified On:02/25/2024 Status:confirmed Z79.4 corral boss current us e of insulin Modified On:02/25/2024 Status:confirmed E03.9 Acquired hypothyroid ism Modified On:02/25/2024 Status:confirmed I16.1 Hypertensive emergen cy Modified On:03/25/2024 Status:confirmed E83.42 Hypomagnesemia Modified On:03/25/2024 Status:confirmed I10 Hypertensive urgency Modified On:04/06/2024 Status:confirmed E11.9 DM2 (diabetes [facility], type 2) Modified On:04/06/2024 Status:confirmed I25.10 CAD [...] mellitus Modified On:11/18/2024 Status:confirmed * Medical History: Objective: * Vitals: Assessment: * Assessment: 1. L ow vitamin B12 level - E53.8 (Primary) Plan: * Treatment: * Therapeutic Injections: Cyanocobalamin : 1 mL (Route: Intramuscular) given by LAKSHMI Galarza on right deltoid (Low vitamin B12 level) * Procedure Codes: [id number] THERAP.INJ. OF MED. INTRAMUSCULAR OR SUBCUTANEOUS, J3420 VITAMIN B-12 < 1000 MCG * * Sign off status: Completed Visit Status: C HK (Check Out) true * Provider: Ian Rubi (TTC)MD Date: 0 03/15/2025 Generated for Petar alcala/Candie/Georgetteitting on: 0 04/14/2025 09:09 AM EDT History and Physical Notes * HPI (History of Present Illness) Category Sub-Category Detail Notes Category Not es General presents to the office for a b12 injection
--- OUTSIDE RECORDS SUMMARY | 2025-04-13 08:51 | XMS_ITS ---
Author Organization [facility] [place] Address [address] [place] [address] Care Team Providers Care Continuous Mining Machine Coal Miner Name Role Phone Jeff Rubi Primary Care Provider [phone] REASON FOR VISIT Synvisc Encounters Encounter Location Date Provider Diagnosis [facility] [address] [place] [address] 04/13/2025 Jeff Rubi Right knee pain M25.561 Assessments Encounter Date Diagnosis (ICD Code) Assessment Notes Treatment Notes Treatment Clinical Notes Section Notes 04/13/2025 Right knee pain (ICD-10 - M25.561) Plan Of Treatment Pending Test Test Name Order Date XR KNEE RT 4V or > 04/13/2025 Progress Notes * Garima ROBINRamiroOB:1945 (79 yo F)Acc No.[id number]:04/13/2025 UNLOCKED PROGRESS NOTE Patient: Mercedez MEAD :1945 A ge:79 Y S ex:Female Address:[address] [place] [address] [address] [place] [address] Subjective: * Chief Complaints: * S ynvisc * Medical History: * Surgical History: * Hospitalization/Major Diagno stic Procedure: * Medications: Objective: * Vitals: * Physical Examination: Assessment: * Assessment: 1. R ight knee pain - M25.561 (Primary) Plan: * Treatment: * Procedure Codes: * * Date:
--- OUTSIDE RECORDS SUMMARY | 2025-04-14 09:10 | XMS_ITS | Patient Health Record ---
Author Organization The [facility] in [place] Address [address] [place] [address] Care Team Providers Care Pushcart Peddler Name Role Phone Jeff Rubi Primary Care Provider Allergies Allergen (clinical drug ingredient) Drug/Non Drug Allergy documented on EMR Reaction Allergy Type Onset Date Status amoxicillin / clavulanate Augmentin Unknown Drug Allergy Active sulfamethoxazole / trimethoprim Bactrim Unknown Drug Allergy Active doxazosin Cardura Unknown Drug Allergy Active amlodipine Norvasc Unknown Drug Allergy Active Results Component Value Reference Range Notes Urine Culture, Routine Reviewed date:05/31/2024 10:41:39 PM Interpretation: Performing Lab: Notes/Report: [facility] , Urine Culture, Routine See Below For Report Urine Culture, Routine Urine Culture, Routine No growth Urine Culture, Routine Urine Culture, Routine Performed at: - [facility] [place] Urine Culture, Routine Urine Culture, Routine [address] [place], [place] [id number] Urine Culture, Routine Urine Culture, Routine Differential Repairer: Lavell Benson PhD, Phone: [phone] Urine Culture, Routine Performing Lab: see note LC - [facility] LB SEE REPORT - Housing Assistant Id information not found for OBX-specific ruling machine set up operator legend FERRITIN Reviewed date:06/09/2024 08:59:57 PM Interpretation: Performing Lab: Notes/Report: [facility] , Ferritin 792.0 8.0-252.0 ng/mL Performing Lab: see note ML - [facility] LB IRON AND TIBC Reviewed date:06/09/2024 08:59:57 PM Interpretation: Performing Lab: Notes/Report: [facility] , Iron 65.0 50.0-170.0 ug/dL Total Iron Binding Capacity 186.0 250.0-450.0 ug/dL Percent Iron Saturation 34.9 Performing Lab: see note ML - [facility] LB VITAMIN D 25 [place] Reviewed date:06/09/2024 08:59:57 PM Interpretation: Performing Lab: Notes/Report: [facility] , Vitamin D 39.9 <20 ng/mL Vit D deficient 20-<30 ng/mL Vit D insufficient 30-100 ng/mL Vit D sufficient >100 ng/mL Potential Toxicity Performing Lab: see note ML - [facility] LB CA echo doppler complete Reviewed date:06/26/2024 08:23:03 AM Interpretation: Performing Lab: Notes/Report: Source Facility: [facility]-[address] [place] [address] Cardiology Report Signed Patient: KYLAH ROBIN MR#: [id number] : 1945 Acct:[id number] Age/Sex: 78 / F ADM Date: 06/24/24 Loc: CARD Attending Dr: Carlie Prescott M.D. Ordering Physician: Carlie Prescott M.D. Date of Service: 06/24/24 Procedure(s): CA echo doppler complete Accession Number(s): [id number] cc: Carlie Prescott M.D.; Dhruv Rubi M.D. Patient Name: KYLAH ROBIN MR#: [id number] : 1945 Exam Date: 06/24/2024 Ordering Doctor: [...] M.D. Signed By: 06/25/241705 DD/ 04 TD/TT: Stoneworking Belt Sander: [place] [address] Cardiology Report Signed Patient: CINDI ROBIN MR#: [id number] : 1945 Acct:[id number] Age/Sex: 78 / F ADM Date: 06/24/24 Loc: CARD Attending Dr: Carlie Prescott M.D. Ordering Physician: Carlie Prescott M.D. Date of Service: 06/24/24 Procedure(s): CA ech o doppler complete Accession Number(s): [id number] cc: Carlie Prescott; Dhruv Rubi M.D. Patient Name: KYLAH ROBIN MR#: [id number] : 1945 Exam Date: 06/24/2024 Ordering Doctor: [...] M.D. Signed By: 06/25/241705 DD/ 04 TD/TT: Stoneworking Belt Sander: FERRITIN Reviewed date:09/01/2024 06:04:15 PM Interpretation: Performing Lab: Notes/Report: [facility] , Ferritin 488.0 8.0-252.0 ng/mL Performing Lab: see note ML - [facility] LB VITAMIN D 25 [place] Reviewed date:09/01/2024 06:04:15 PM Interpretation: Performing Lab: Notes/Report: [facility] , Vitamin D 35.4 <20 ng/mL Vit D deficient 20-<30 ng/mL Vit D insufficient 30-100 ng/mL Vit D sufficient >100 ng/mL Potential Toxicity Performing Lab: see note ML - [facility] LB URINE T PROTEIN CREAT RATIO Reviewed date:01/05/2025 07:25:49 PM Interpretation: Performing Lab: Notes/Report: [facility] , Total Protein Urine Random 108.9 <=11.9 mg/dL Creatinine Urine Random 157.18 20.00-30 0.00 mg/dL Protein Creatinine Ratio Urine 0.69 Performing Lab: see note ML - [facility] LB VITAMIN D 25 [place] Reviewed date:01/05/2025 07:25:49 PM Interpretation: Performing Lab: Notes/Report: [facility] , Vitamin D 30.9 <20 ng/mL Vit D deficient 20-<30 ng/mL Vit D insufficient 30-100 ng/mL Vit D sufficient >100 ng/mL Potential Toxicity Performing Lab: see note ML - [facility] LB XR KNEE RT 3V Reviewed date:03/04/2025 06:23:39 PM Interpretation: Performing Lab: Notes/Report: Source Facility: [place] [address] [place] [address] XRay Report Signed with Isha Patient: KYLAH ROBIN MR#: [id number] : 1945 Acct:[id number] Age/Sex: 79 / F ADM Date: 03/03/25 Loc: LAB Attending Dr: Dhruv Rubi M.D. Ordering Physician: Dhruv Rubi M.D. Date of Service: 03/03/25 Procedure(s): XR knee RT 3V Accession Number(s): [id number] cc: Dhruv Rubi M.D. ADDENDUM The [place] [address] This is an addendum Correction: Addendum Dictated By: Mariusz Hernandez D.O. 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 Impression dictated by: Mariusz Hernandez M.D. 03/04/2025 9:17 AM Dictation Location: [place] [address] Electronically authenticated by: [id number] Y Date: 03/04/2025 09:17 Patient Name: KYLAH ROBIN MRN: [facility]:[id number] date: 1945 Sex: F Assigned Patient Location: LAB Current Patient Location: Accession/Order Number: [id number] Exam Date: 03/04/2025 09:16 Report Date: 03/04/2025 09:17 At the request of: DHRUV RUBI MD Procedure: XR knee RT 3V [address] [address] Patient Name: KYLAH ROBIN MRN: [id number] date: 1945 Sex: F Assigned Patient Location: LAB Current Patient Location: LAB Accession/Order Number: [id number] Exam Date: 03/03/2025 16:06 Report Date: 03/03/2025 16:08 At the request of: DHRUV RUBI MD Procedure: XR knee RT 3V 3 views right knee plain film COMPARISON: 12/29/2021 HISTORY: Right medial knee pain for 4 weeks. ACUTE FINDINGS: No acute findings DEGENERATIVE CHANGE: Moderate medial joint space narrowing. The medial femoral subchondral lucency. Potential osteochondral defect. SOFT TISSUE FINDINGS: Unremarkable JOINT EFFUSION: None POSTOP CHANGES: None BONE MINERALIZATION: Adequate IMPRESSION: Marked medial compartment degeneration. Medial femoral condyle lucency which may represent small osteochondral defect. Impression dictated by: Mariusz Hernandez M.D. 03/03/2025 4:08 PM Dictation Location: [place] [address] Electronically authenticated by: [id number] Y Date: 03/03/2025 16:08 Addendum Dictated By: Mariusz Hernandez D.O. Addendum Signed By: 03/04/25 0 919 Addendum Cosigned By: DD/ TD/TT: / [address] [address] Patient Name: KYLAH ROBIN MRN: [id number] date: 1945 Sex: F Assigned Patient Location: LAB Current Patient Location: LAB Accession/Order Number: [id number] Exam Date: 03/03/2025 16:06 Report Date: 03/03/2025 16:08 At the request of: DHRUV RUBI MD Procedure: XR knee RT 3V 3 views right knee plain film COMPARISON: 12/29/2021 HISTORY: Right medial knee pain for 4 weeks. ACUTE FINDINGS: No acute findings DEGENERATIVE CHANGE: Moderate medial joint space narrowing. The medial femoral subchondral lucency. Potential osteochondral defect. SOFT TISSUE FINDINGS: Unremarkable JOINT EFFUSION: None POSTOP CHANGES: None BONE MINERALIZATION: Adequate XR/XR knee RT 3V IMPRESSION: Marked medial compartment degeneration. Medial femoral condyle lucency which may represent small osteochondral defect. Impression dictated by: Mariusz Hernandez M.D. 03/03/2025 4:08 PM Dictation Location: [place] Electronically authenticated by: [id number] Y Date: 03/03/2025 16:08 Dictated By: Mariusz Hernadnez D.O. Signed By: 03/03/251610 DD/ 07 TD/TT: Stoneworking Belt Sander: [place] [address] XRay Report Signed with Addenda Patient: CINDI ROBIN MR#: [id number] : 1945 Acct:[id number] Age/Sex: 79 / F ADM Date: 03/03/25 Loc: LAB Attending Dr: Violeta Rubi M.D. Ordering Physician: Dhruv Rubi M.D. Date of Service: 03/03/25 Procedure(s): XR kne e RT 3V Accession Number(s): [id number] cc: Dhruv Rubi M.D. ADDENDUM [place] [address] This is an addendum Correction: Addendum Dictated By : Mariusz Hernandez D.O. 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 Impression dictated by: Mariusz Hernandez M.D. 03/04/2025 9:17 AM Dictation Location: [place] Electronically authenticated by: [id number] Y Date: 03/04/2025 09:17 Patient Name: KYLAH ROBIN MRN: [id number] date: 1945 Sex: F Assigned Patient Location: LAB Current Patient Location: Accession/Order Numb er: [id number] Exam Date: 03/04/2025 09:16 Report Date: 03/04/2025 09:17 At the request of: DHRUV RUBI MD Procedure: XR knee RT 3V [place] [id number] Patient Name: KYLAH ROBIN MRN: [id number] date: 1945 Sex: F Assigned Patient Location: LAB Current Patient Loca tion: LAB Accession/Order Numb er: [id number] Exam Date: 03/03/2025 16:06 Report Date: 03/03/2025 16:08 At the request of: DHRUV RUBI MD Procedure: XR knee RT 3V 3 views right knee p lacy film COMPARISON: 12/29/2021 HISTORY: Right media l knee pain for 4 weeks. ACUTE FINDINGS: No a cute findings DEGENERATIVE CHANGE: Moderate medial joint space narrowing. The medial femoral subchondral lucency. Potential osteochondral defect. SOFT TISSUE FINDINGS : Unremarkable JOINT EFFUSION: None POSTOP CHANGES: None BONE MINERALIZATION: Adequate IMPRESSION: Marked m edial compartment degeneration. Medial femoral condyle lucency which may represent small osteochondral defect. Impression dictated by: Mariusz Hernandez M.D. 03/03/2025 4:08 PM Dictation Location: [place] [address] Electronically authenticated by: [id number] Y Date: 03/03/2025 16:08 Addendum Dictated By : Mariusz Hernandez D.O. Addendum Signed By: 03/04/25 0 919 Addendum Cosigned By: DD/ TD/TT: / [address] [address] Patient Name: KYLAH ROBIN MRN: [id number] date: 1945 Sex: F Assigned Patient Location: LAB Current Patient Loca tion: LAB Accession/Order Numb er: [id number] Exam Date: 03/03/2025 16:06 Report Date: 03/03/2025 16:08 At the request of: DHRUV RUBI MD Procedure: XR knee RT 3V 3 views right knee p lacy film COMPARISON: 12/29/2021 HISTORY: Right media l knee pain for 4 weeks. ACUTE FINDINGS: No a cute findings DEGENERATIVE CHANGE: Moderate medial joint space narrowing. The medial femoral subchondral lucency. Potential osteochondral defect. SOFT TISSUE FINDINGS : Unremarkable JOINT EFFUSION: None POSTOP CHANGES: None BONE MINERALIZATION: Adequate X R/XR knee RT 3V IMPRESSION: Marked m edial compartment degeneration. Medial femoral condyle lucency which may represent small osteochondral defect. Impression dictated by: Mariusz Hernandez M.D. 03/03/2025 4:08 PM Dictation Location: [place] Electronically authenticated by: [id number] Y Date: 03/03/2025 16:08 Dictated By: Vern Hernandez D.O. Signed By: 03/03/25 1611 DD/ 1608 TD/TT: Stoneworking Belt Sander: Troponin I High Sensitivity Reviewed date:05/28/2024 11:29:23 AM Interpretation: Performing Lab: Notes/Report: [facility] , Troponin I High Sensitivity 8.5 4.0-51.3 pg/mL CUT-OFF POINTS HAVE BEEN ESTABLISHED BASED ON THE FOURTH UNIVERSAL DEFINITION OF MYOCARDIAL INFARCTION. THE UPPER REFERENCE LIMIT (URL) OF TROPONIN, DEFINED THE 99TH PERCENTILE OF cTnI DISTRIBUTION IN A REFERENCE POPULATION, HAS BEEN CONFIRMED THE DECISION THRESHOLD FOR [place] DIAGNOSIS. 99TH PERCENTILE = 51.4 PG/ML NOTE: HIGH-SENSITIVITY TROPONIN ASSAY IS NOT INTENDED TO BE USED IN ISOLATION BUT SHOULD BE INTERPRETED IN CONJUNCTION WITH OTHER DIAGNOSTIC AND CLINICAL INFORMATION. Performing Lab: see note ML - [facility] LB BNP Reviewed date:05/28/2024 11:29:23 AM Interpretation: Performing Lab: Notes/Report: [facility] , NT Pro B Type Natriuretic Pept 1529.0 <=1800.0 pg/mL Performing Lab: see note ML - [facility] LB PROF 14(COMP METB) Reviewed date:12/31/2024 08:41:15 PM Interpretation: Performing Lab: Notes/Report: [facility] , Sodium 138 136-145 mmol/L Potassium [...] 0.9 Performing Lab: see note ML - [facility] LB CBC AUTO DIFF Reviewed date:12/31/2024 08:41:15 PM Interpretation: Performing Lab: Notes/Report: [facility] , White Blood Count 7.2 4.0-11.0 [...] Performing Lab: see note ML - [facility] LB BNP Reviewed date:12/31/2024 08:41:15 PM Interpretation: Performing Lab: Notes/Report: [facility] , NT Pro B Type Natriuretic Pept 1558.0 <=1800.0 pg/mL Performing Lab: see note ML - [facility] LB MAGNESIUM Reviewed date:06/09/2024 08:59:57 PM Interpretation: Performing Lab: Notes/Report: [facility] , Magnesium 1.7 1.8-2.4 mg/dL Performing Lab: see note ML - [facility] LB RENAL FUNCTION PANEL Reviewed date:06/09/2024 08:59:57 PM Interpretation: Performing Lab: Notes/Report: [facility] , Sodium 135 136-145 mmol/L Potassium [...] g/dL Performing Lab: see note ML - [facility] LB URIC ACID SERUM Reviewed date:06/09/2024 08:59:57 PM Interpretation: Performing Lab: Notes/Report: [facility] , Uric Acid 3.9 2.6-6.0 mg/dL Performing Lab: see note - [facility] LB URINE T PROTEIN CREAT RATIO Reviewed date:06/09/2024 08:59:57 PM Interpretation: Performing Lab: Notes/Report: [facility] , Total Protein Urine Random 77.8 <=11.9 mg/dL Creatinine Urine Random 117.64 20.00-30 0.00 mg/dL Protein Creatinine Ratio Urine 0.66 Performing Lab: see note - [facility] LB CBC no Diff (Hemogram) Reviewed date:06/09/2024 08:59:57 PM Interpretation: Performing Lab: Notes/Report: [facility] , White Blood Count 6.8 4.0-11.0 [...] 9.6 9.5-13.5 fL Performing Lab: see note [facility] LB PTH, Intact Reviewed date:06/10/2024 07:36:23 PM Interpretation: Performing Lab: Notes/Report: [facility] , PTH, Intact 62 15-65 pg/mL Performed at: - [facility] [address] [id number] Differential Repairer: Ashok Benson PhD, Phone: [phone] Performing Lab: see note - [facility] LB XR DEXA axial skeleton Reviewed date:06/10/2024 07:36:23 PM Interpretation: Performing Lab: Notes/Report: Source Facility: [facility]-[address] [place] [address] [place] [address] XRay Report Signed Patient: KYLAH ROBIN MR#: [id number] : 1945 Acct:[id number] Age/Sex: 78 / F ADM Date: 06/10/24 Loc: LORE Attending Dr: Dhruv Rubi M.D. Ordering Physician: Dhruv Rubi M.D. Date of Service: 06/10/24 Procedure(s): XR DEXA axial skeleton Accession Number(s): [id number] cc: Dhruv Rubi M.D. [place] [address] Patient Name: KYLAH ROBIN MRN: [id number] date: 1945 Sex: F Assigned Patient Location: [facility] Current Patient Location: [facility] Accession/Order Number: [id number] Exam Date: 06/10/2024 08:44 Report Date: 06/10/2024 [...] prevention and treatment of osteoporosis. Osteoporos Int. 2021;33(10):8479-9917. doi: 10.1007/l76950-226-49714-z. Epub 2021Feb 01. Erratum in: Osteoporos Int. 2021May 03;: PMID: [id number]; PMCID: [id number]. Electronically authenticated by: JAIRO KIM Date: 06/10/2024 10:29 Dictated By: Jairo Kim M.D. Signed By: 06/10/24 1032 DD/ 1029 TD/TT: Stoneworking Belt Sander: The [address] [address] XRay Report Signed Patient: CINDI ROBIN MR#: [id number] : 1945 Acct:[id number] Age/Sex: 78 / F ADM Date: 06/10/24 Loc: RAD Attending Dr: Violeta Rubi M.D. Ordering Physician: Dhruv Rubi M.D. Date of Service: 06/10/24 Procedure(s): XR DEX A axial skeleton Accession Number(s): [id number] cc: Dhruv Rubi M.D. [address] [address] Patient Name: KYLAH ROBIN MRN: [facility]:[id number] date: 1945 Sex: F Assigned Patient Location: [facility] Current Patient Loca tion: RAD Accession/Order Numb er: [id number] Exam Date: 06/10/2024 08:44 Report Date: 06/10/2024 [...] prevention and treatment of osteoporosis. Osteoporos Int. 2021;33(10):3353-9215. doi: 10.1007/x73611-146-12863- y. Epub 2021Feb 01. Erratum in: Osteoporos Int. 2021May 03;: PMID: [id number]; PMCID: [id number]. Electronically authenticated by: JAIRO KIM Date: 06/10/2024 10:29 Dictated By: Jairo Kim M.D. Signed By: 06/10/24 1032 DD/ 1029 TD/TT: Stoneworking Belt Sander: CBC AUTO DIFF Reviewed date:06/18/2024 09:50:39 PM Interpretation: Performing Lab: Notes/Report: [facility] , White Blood Count 7.1 4.0-11.0 [...] Performing Lab: see note ML - [facility] FREE T3 Reviewed date:06/18/2024 09:50:39 PM Interpretation: Performing Lab: Notes/Report: [facility] , Free T3 1.52 2.18-3.98 pg/mL Performing Lab: see note ML - [facility] PROF 14(COMP METB) Reviewed date:06/18/2024 09:50:39 PM Interpretation: Performing Lab: Notes/Report: [facility] , Sodium 138 136-145 mmol/L Potassium [...] Performing Lab: see note ML - [facility] LB T4 Reviewed date:06/18/2024 09:50:39 PM Interpretation: Performing Lab: Notes/Report: [facility] , T4 Thyroxine 5.30 4.80-13.90 ug/dL Performing Lab: see note ML - [facility] LB TSH Reviewed date:06/18/2024 09:50:39 PM Interpretation: Performing Lab: Notes/Report: [facility] , Thyroid Stimulating Hormone 1.690 0.358-3.740 uIU/mL Performing Lab: see note ML - [facility] UA RANDOM W or MICROSCOPIC Reviewed date:06/18/2024 09:50:39 PM Interpretation: Performing Lab: Notes/Report: [facility] , Color Urine LT. YELLOW YELLOW Clarity Urine CLEAR CLEAR Specific Plessis Urine 1.020 1.005-1.025 pH Urine 5.5 5.0-9.0 [...] YES Performing Lab: see note ML - [facility] LB IRON AND TIBC Reviewed date:09/01/2024 06:04:15 PM Interpretation: Performing Lab: Notes/Report: [facility] , Iron 61.0 50.0-170.0 ug/dL Total Iron Binding Capacity 205.0 250.0-450.0 ug/dL Percent Iron Saturation 29.8 Performing Lab: see note ML - [facility] LB MAGNESIUM Reviewed date:09/01/2024 06:04:15 PM Interpretation: Performing Lab: Notes/Report: [facility] , Magnesium 1.9 1.8-2.4 mg/dL Performing Lab: see note ML - [facility] LB RENAL FUNCTION PANEL Reviewed date:09/01/2024 06:04:15 PM Interpretation: Performing Lab: Notes/Report: [facility] , Sodium 136 136-145 mmol/L Potassium [...] g/dL Performing Lab: see note ML - [facility] LB URIC ACID SERUM Reviewed date:09/01/2024 06:04:15 PM Interpretation: Performing Lab: Notes/Report: [facility] , Uric Acid 4.2 2.6-6.0 mg/dL Performing Lab: see note ML - [facility] LB CBC no Diff (Hemogram) Reviewed date:09/01/2024 06:04:15 PM Interpretation: Performing Lab: Notes/Report: [facility] , White Blood Count 6.3 4.0-11.0 [...] fL Performing Lab: see note ML - [facility] UA RANDOM W or MICROSCOPIC Reviewed date:09/06/2024 12:29:49 PM Interpretation: Performing Lab: Notes/Report: [facility] , Color Urine DK. ORANGE YELLOW Clarity Urine CLEAR CLEAR Specific Plessis Urine 1.010 1.005-1.025 pH Urine COLOR INTERFERENCE [...] ORDERED Performing Lab: see note ML - [facility] LB Urine Culture, Routine Reviewed date:09/08/2024 [...] AIDEN Status Urine Culture, Routine [facility]formed [facility], Routine Organism: Gram negative martin : O:ESCCOL Isolated O:GNR Isolated Organism: 1.1 Antibiotic Interpretation AIDEN Status Urine Culture, Routine [address] [place], [place] [id number] Urine Culture, Routine Organism: Gram negative martin : O:ESCCOL Isolated O:GNR Isolated Organism: 1.1 Antibiotic Interpretation AIDEN Status Urine Culture, Routine Differential Repairer: Lavell Benson PhD, Phone: [phone] Urine Culture, Routine Organism: Gram negative martin [...] LC - [facility] LB SEE REPORT - Housing Assistant Id information not found for OBX-specific ruling machine set up operator legend INFLUENZA A AND B AG Reviewed date:09/20/2024 05:06:04 PM Interpretation: Performing Lab: Notes/Report: [facility] , Influenza Virus A Antigen Negative [...] test. Performing Lab: see note ML - [facility] LB LACTATE or LACTIC ACID Reviewed date:09/20/2024 05:06:04 PM Interpretation: Performing Lab: Notes/Report: [facility] , Lactate/Lactic Acid 1.7 0.4-2.0 mmol/L Performing Lab: see note ML - [facility] LB PROF 14(COMP METB) Reviewed date:09/20/2024 05:06:04 PM Interpretation: Performing Lab: Notes/Report: [facility] , Sodium 135 136-145 mmol/L Potassium [...] 0.8 Performing Lab: see note ML - [facility] LB UA (CLEAN or CATCH) SECURITIES ATTORNEY or M ICRO IF IND. Reviewed date:09/20/2024 05:06:04 PM Interpretation: Performing Lab: Notes/Report: [facility] , Color Urine YELLOW YELLOW Clarity Urine CLEAR CLEAR Specific Plessis Urine 1.020 1.005-1.025 pH Urine 5.5 5.0-9.0 Protein Urine 100 NEG/TRACE mg/dL Glucose Urine UA NEGATIVE NEGATIVE mg/dL Bilirubin Urine NEGATIVE NEGATIVE Ketones Urine NEGATIVE NEGATIVE mg/dL Blood Urine NEGATIVE NEGATIVE Nitrite Urine NEGATIVE NEGATIVE Urobilinogen Urine 0.2 0.2-1.0 EU/dL Leukocyte Esterase Urine NEGATIVE NEGATIVE Urine Microscopic Indicated YES Performing Lab: see note ML - [facility] LB Troponin I High Sensitivity Reviewed date:09/20/2024 05:06:04 PM Interpretation: Performing Lab: Notes/Report: [facility] , Troponin I High Sensitivity 12.6 4.0-51.3 pg/mL CUT-OFF POINTS HAVE BEEN ESTABLISHED BASED ON THE FOURTH UNIVERSAL DEFINITION OF MYOCARDIAL INFARCTION. THE UPPER REFERENCE LIMIT (URL) OF TROPONIN, DEFINED THE 99TH PERCENTILE OF cTnI DISTRIBUTION IN A REFERENCE POPULATION, HAS BEEN CONFIRMED THE DECISION THRESHOLD FOR [place] DIAGNOSIS. 99TH PERCENTILE = 51.4 PG/ML NOTE: HIGH-SENSITIVITY TROPONIN ASSAY IS NOT INTENDED TO BE USED IN ISOLATION BUT SHOULD BE INTERPRETED IN CONJUNCTION WITH OTHER DIAGNOSTIC AND CLINICAL INFORMATION. Performing Lab: see note ML - [facility] LB TSH W/ REFLEX FT4 Reviewed date:09/20/2024 05:06:04 PM Interpretation: Performing Lab: Notes/Report: [facility] , TSH W/ REFLEX FT4 1.297 0.358-3.740 uIU/mL Performing Lab: see note ML - [facility] LB SARS-CoV-2 Ag* Reviewed date:09/20/2024 05:06:04 PM Interpretation: Performing Lab: Notes/Report: [facility] , SARS-CoV-2 Ag NEGATIVE NEGATIVE This [...] Performing Lab: see note ML - [facility] LB ECG 12 lead Reviewed date:09/22/2024 12:37:02 PM Interpretation: Performing Lab: Notes/Report: Source Facility: [place] [address] [place] [address] Electrocardiograph Report Signed Patient: KYLAH ROBIN MR#: [id number] : 1945 Acct:[id number] Age/Sex: 78 / F ADM Date: 09/20/24 Loc: ER Attending Dr: Ordering Physician: Luis Lugo Date of Service: 09/20/24 Procedure(s): ECG 12 lead Accession Number(s): [id number] cc: [facility] Test Date: 2024-09-20 Pat Name: KYLAH ROBIN Department: Room: - Gender: Female Sample Cutter: : 1945 Requested By: DHRUV RUBI Order Number: [id number] Reading MD: DHRUV RUBI Measurements Intervals [place] Rate: 83 P: 43 GA: 156 QRS: 13 QRSD: 86 T: 57 QT: 394 QTc: 434 Interpretive Statements 1100 Sinus rhythm 4068 Nonspecific Twave abnormality 9130 borderline ECG Compared to ECG 03/01/2024 19:45:19 T-wave abnormality no longer present Electronically Signed On 09-22-2024 6:58:14 EST by DHRUV RUBI Dictated By: Dhruv Rubi M.D. Signed By: 09/22/24 0658 DD/ 1521 TD/TT: Stoneworking Belt Sander: [place] [address] Electrocardiograph Report Signed Patient: CINDI ROBIN MR#: [id number] : 1945 Acct:[id number] Age/Sex: 78 / F ADM Date: 09/20/24 Loc: ER Attending Dr: Ordering Physician: Luis Lugo Date of Service: 09/20/24 Procedure(s): ECG 12 lead Accession Number(s): [id number] cc: [facility] Test Date: 2024-09-20 Pat Name: KYLAH RODRIGUES Department: 70 Room: - Gender: Female Sample Cutter: : 1945 Requ ested By: DHRUV RUBI Order Number: [id number] Reading MD: DHRUV RUBI Measurements Intervals [place] Rate: 83 P: 43 GA: 156 QRS: 13 QRSD: 86 T: 57 QT: 394 QTc: 434 Interpretive Statements 1100 Sinus rhythm 4068 Nonspecific Twa ve abnormality 9130 borderline ECG Compared to ECG 03/01/2024 19:45:19 T-wave abnormality n o longer present Electronically Chelita d On 09-22-2024 6:58:14 EST by DHRUV RUBI Dictated By: Gissel Rubi M.D. Signed By: 09/22/24 0658 DD/ 1521 TD/TT: Stoneworking Belt Sander: CT abdomen pelvis wo con Reviewed date:09/20/2024 05:06:04 PM Interpretation: Performing Lab: Notes/Report: Source Facility: [place] [address] CT Scan Report Signed Patient: KYLAH ROBIN MR#: [id number] : 1945 Acct:[id number] Age/Sex: 78 / F ADM Date: 09/20/24 Loc: ER Attending Dr: Ordering Physician: Luis Lugo Date of Service: 09/20/24 Procedure(s): CT abdomen pelvis wo con Accession Number(s): [id number] cc: Dhruv Rubi M.D. [place] [address] Patient Name: KYLAH ROBIN MRN: [facility]:[id number] date: 1945 Sex: F Assigned Patient Location: ER Current Patient Location: ER Accession/Order Number: [id number] Exam Date: 09/20/2024 15:52 Report Date: 09/20/2024 [...] M.D. Signed By: 09/20/241622 DD/ 19 TD/TT: Stoneworking Belt Sander: [place] [address] CT Scan Report Signed Patient: CINDI ROBIN MR#: [id number] : 1945 Acct:[id number] Age/Sex: 78 / F ADM Date: 09/20/24 Loc: ER Attending Dr: Ordering Physician: Luis Lugo Date of Service: 09/20/24 Procedure(s): CT abd omen pelvis wo con Accession Number(s): [id number] cc: Dhruv Rubi M.D. [address] [address] Patient Name: KYLAH ROBIN MRN: [facility]:[id number] date: 1945 Sex: F Assigned Patient Location: ER Current Patient Loca tion: ER Accession/Order Numb er: [id number] Exam Date: 15:52 Report Date: 09/20/2024 16:20 [...] M.D. Signed By: 09/20/241622 DD/ 19 TD/TT: Stoneworking Belt Sander: XR chest 1V Reviewed date:09/20/2024 05:06:04 PM Interpretation: Performing Lab: Notes/Report: Source Facility: [place] [address] [place] [address] XRay Report Signed Patient: KYLAH ROBIN MR#: [id number] : 1945 Acct:[id number] Age/Sex: 78 / F ADM Date: 09/20/24 Loc: ER Attending Dr: Ordering Physician: Luis Lugo Date of Service: 09/20/24 Procedure(s): XR chest 1V Accession Number(s): [id number] cc: Dhruv Rubi M.D.; Luis Lugo [address] [id number] Patient Name: KYLAH ROBIN MRN: [facility]:[id number] date: 1945 Sex: F Assigned Patient Location: ER Current Patient Location: ER Accession/Order Number: [id number] Exam Date: 09/20/2024 15:28 Report Date: 09/20/2024 [...] By: Solomon Beth M.D. Signed By: 09/20/24 1602 DD/ 1558 TD/TT: Stoneworking Belt Sander: [place] [address] XRay Report Signed Patient: CINDI ROBIN MR#: [id number] : 1945 Acct:[id number] Age/Sex: 78 / F ADM Date: 09/20/24 Loc: ER Attending Dr: Ordering Physician: Luis Lugo Date of Service: 09/20/24 Procedure(s): XR chest 1V Accession Number(s): [id number] cc: Dhruv Rubi M.D. ; Luis Lugo [address] [address] Patient Name: KYLAH ROBIN MRN: [facility]:[id number] date: 1945 Sex: F Assigned Patient Location: ER Current Patient Loca tion: ER Accession/Order Numb er: [id number] Exam Date: 15:28 Report Date: 09/20/2024 15:58 [...] By: Antonieta Beth M.D. Signed By: 09/20/24 1603 DD/ 1558 TD/TT: Stoneworking Belt Sander: CBC AUTO DIFF Reviewed date:11/18/2024 10:07:51 PM Interpretation: Performing Lab: Notes/Report: [facility] , White Blood Count 6.9 4.0-11.0 [...] 3/uL Performing Lab: see note ML - [facility] PROF CHEM 8 (BAS METB) Reviewed date:11/18/2024 10:07:51 PM Interpretation: Performing Lab: Notes/Report: [facility] , Sodium 140 136-145 mmol/L Potassium [...] mg/dL Performing Lab: see note ML - [facility] ECG 12 lead Reviewed date:11/20/2024 06:53:57 AM Interpretation: Performing Lab: Notes/Report: Source Facility: [facility] [place] [address] [place] [address] Electrocardiograph Report Signed Patient: KYLAH ROBIN MR#: [id number] : 1945 Acct:[id number] Age/Sex: 78 / F ADM Date: 11/17/24 Loc: ER Attending Dr: Ordering Physician: Pee Prabhakar M.D. 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 Signed By: 11/20/24523 DD/ 17 TD/TT: Stoneworking Belt Sander: [place] [address] Electrocardiograph Report Signed Patient: CINDI ORBIN MR#: [id number] : 1945 Acct:[id number] Age/Sex: 78 / F ADM Date: 11/17/24 Loc: ER Attending Dr: Ordering Physician: Pee Prabhakar M.D. 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 Signed By: 11/20/24523 DD/ 17 TD/TT: Stoneworking Belt Sander: KENAN tomosynthesis screening B I Reviewed date:12/22/2024 08:51:42 PM Interpretation: Performing Lab: Notes/Report: Source Facility: [facility] [place] [address] [place] [address] Mammography Report Signed Patient: KYLAH ROBIN MR#: [id number] : 1945 Acct:[id number] Age/Sex: 79 / F ADM Date: 12/22/24 Loc: MAMMO Attending Dr: Dhruv Rubi M.D. Ordering Physician: Dhruv Rubi M.D. Results: Date of Service: 12/22/24 Follow Up: Procedure(s): MM tomosynthesis screening BI Accession Number(s): [id number] cc: Dhruv Rubi M.D. Patient Name: KYLAH ROBIN MR#: [id number] : 1945 Exam Date: 12/22/2024 Ordering Doctor: [...] lung cancer at age 61. LOCATION: [facility] BREAST COMPOSITION: There are scattered areas [...] Gamino M.D. Signed By: 12/22/24 1602 DD/ 1601 TD/TT: Stoneworking Belt Sander: [place] [address] Mammography Report Signed Patient: CINDI ROBIN MR#: [id number] : 1945 Acct:[id number] Age/Sex: 79 / F ADM Date: 12/22/24 Loc: MAMMO Attending Dr: Violeta Rubi M.D. Ordering Physician: Dhruv Rubi M.D. Results: Date of Service: Follow Up: Procedure(s): MM tomosynthesis screening BI Accession Number(s): [id number] cc: Dhruv Rubi M.D. Patient Name: KYLAH ROBIN MR#: [id number] : 1945 Exam Date: 12/22/2024 Ordering Doctor: [...] can cer at age 61. LOCATION: [facility] BREAST COMPOSITION: There are scattered areas [...] Signed By: 12/22/24 160 DD/ 00 TD/TT: Stoneworking Belt Sander: FERRITIN Reviewed date:01/05/2025 07:25:49 PM Interpretation: Performing Lab: Notes/Report: [facility] , Ferritin 499.0 8.0-252.0 ng/mL Performing Lab: see note ML - [facility] IRON AND TIBC Reviewed date:01/05/2025 07:25:49 PM Interpretation: Performing Lab: Notes/Report: [facility] , Iron 69.0 50.0-170.0 ug/dL Total Iron Binding Capacity 207.0 250.0-450.0 ug/dL Percent Iron Saturation 33.3 Performing Lab: see note ML - [facility] MAGNESIUM Reviewed date:01/05/2025 07:25:49 PM Interpretation: Performing Lab: Notes/Report: [facility] , Magnesium 1.9 1.8-2.4 mg/dL Performing Lab: see note ML - [facility] RENAL FUNCTION PANEL Reviewed date:01/05/2025 07:25:49 PM Interpretation: Performing Lab: Notes/Report: [facility] , Sodium 141 136-145 mmol/L Potassium [...] g/dL Performing Lab: see note ML - [facility] LB UA RANDOM W or MICROSCOPIC Reviewed date:01/05/2025 07:25:49 PM Interpretation: Performing Lab: Notes/Report: [facility] , Color Urine LT. YELLOW YELLOW Clarity Urine CLOUDY CLEAR Specific Plessis Urine 1.020 1.005-1.025 pH Urine 6.0 5.0-9.0 [...] NONE SEEN #/LPF Performing Lab: see note [facility] LB URIC ACID SERUM Reviewed date:01/05/2025 07:25:49 PM Interpretation: Performing Lab: Notes/Report: [facility] , Uric Acid 3.9 2.6-6.0 mg/dL Performing Lab: see note [facility] CBC no Diff (Hemogram) Reviewed date:01/05/2025 07:25:49 PM Interpretation: Performing Lab: Notes/Report: [facility] , White Blood Count 6.0 4.0-11.0 [...] 9.4 9.5-13.5 fL Performing Lab: see note [facility] LB PTH, Intact Reviewed date:01/06/2025 08:09:23 PM Interpretation: Performing Lab: Notes/Report: [facility] , PTH, Intact 73 15-65 pg/mL Performed at: [facility] [address] [id number] Differential Repairer: Ashok Benson PhD, Phone: [phone] Performing Lab: see note - [facility] LB PROF 14(COMP METB) Reviewed date:05/28/2024 11:29:23 AM Interpretation: Performing Lab: Notes/Report: [facility] , Sodium 133 136-145 mmol/L Potassium [...] 0.8 Performing Lab: see note ML - [facility] LB UA RANDOM W or MICROSCOPIC Reviewed date:05/28/2024 11:29:23 AM Interpretation: Performing Lab: Notes/Report: [facility] , Color Urine LT. YELLOW YELLOW Clarity Urine CLEAR CLEAR Specific Plessis Urine 1.015 1.005-1.025 pH Urine 6.5 5.0-9.0 [...] ORDERED Performing Lab: see note ML - [facility] LB CBC AUTO DIFF Reviewed date:09/20/2024 05:06:04 PM Interpretation: Performing Lab: Notes/Report: [facility] , White Blood Count 15.3 4.0-11.0 [...] 3/uL Performing Lab: see note ML - [facility] LB URINE MICROSCOPIC ONLY Reviewed date:09/20/2024 05:06:04 PM Interpretation: Performing Lab: Notes/Report: [facility] , WBC Urine NONE SEEN NONE SEEN #/HPF RBC Urine 0-2 0-2 #/HPF Bacteria Urine TRACE NONE SEEN #/HPF Mucus Urine NONE SEEN NONE SEEN Squamous Epithelial Cell Urine MODERATE NONE/RARE #/LPF Crystals Seen? None Seen None Seen #/HPF Cast Seen? NONE SEEN NONE SEEN #/LPF Urine Culture Indicated NO Performing Lab: see note ML - [facility] LB Troponin I High Sensitivity Reviewed date:12/31/2024 08:41:15 PM Interpretation: Performing Lab: Notes/Report: [facility] , Troponin I High Sensitivity 11.5 4.0-51.3 pg/mL CUT-OFF POINTS HAVE BEEN ESTABLISHED BASED ON THE FOURTH UNIVERSAL DEFINITION OF MYOCARDIAL INFARCTION. THE UPPER REFERENCE LIMIT (URL) OF TROPONIN, DEFINED THE 99TH PERCENTILE OF cTnI DISTRIBUTION IN A REFERENCE POPULATION, HAS BEEN CONFIRMED THE DECISION THRESHOLD FOR [place] DIAGNOSIS. 99TH PERCENTILE = 51.4 PG/ML NOTE: HIGH-SENSITIVITY TROPONIN ASSAY IS NOT INTENDED TO BE USED IN ISOLATION BUT SHOULD BE INTERPRETED IN CONJUNCTION WITH OTHER DIAGNOSTIC AND CLINICAL INFORMATION. Performing Lab: see note ML - [facility] LB XR chest 2V Reviewed date:12/31/2024 08:41:15 PM Interpretation: Performing Lab: Notes/Report: Source Facility: [place] [address] [place] [address] XRay Report Signed Patient: KYLAH ROBIN MR#: [id number] : 1945 Acct:[id number] Age/Sex: 79 / F ADM Date: 12/31/24 Loc: LAB Attending Dr: Dhruv Rubi M.D. Ordering Physician: Dhruv Rubi M.D. Date of Service: 12/31/24 Procedure(s): XR chest 2V Accession Number(s): [id number] cc: Dhruv Rubi M.D. [place] [address] Patient Name: KYLAH ROBIN MRN: [id number]:[id number] date: 1945 Sex: F Assigned Patient Location: LAB Current Patient Location: LAB Accession/Order Number: [id number] Exam Date: 12/31/2024 12:38 Report Date: 12/31/2024 [...] Mariusz Hernandez M.D.12/31/2024 12:41 PM Dictation Location: [facility] Electronically authenticated by: [id number] Y Date: 12/31/2024 12:41 Dictated By: Mariusz Hernandez D.O. Signed By: 12/31/24 1244 DD/ 1241 TD/TT: Stoneworking Belt Sander: [place] [address] XRay Report Signed Patient: CINDI ROBIN MR#: [id number] : 1945 Acct:[id number] Age/Sex: 79 / F ADM Date: 12/31/24 Loc: LAB Attending Dr: Violeta Rubi M.D. Ordering Physician: Dhruv Rubi M.D. Date of Service: 12/31/24 Procedure(s): XR chest 2V Accession Number(s): [id number] cc: Dhruv Rubi M.D. [place] [address] Patient Name: KYLAH ROBIN MRN: [id number] date: 1945 Sex: F Assigned Patient Location: LAB Current Patient Loca tion: LAB Accession/Order Numb er: [id number] Exam Date: 12/31/2024 12:38 Report Date: 12/31/2024 [...] Mariusz Hernandez M.D.12/31/2024 12:41 PM Dictation Location: [employer]-23 Electronically authenticated by: [id number] Y Date: 12/31/2024 12:41 Dictated By: Vern Hernandez D.O. Signed By: 12/31/24 1244 DD/ 1241 TD/TT: Stoneworking Belt Sander: CBC AUTO DIFF Reviewed date:05/28/2024 11:29:23 AM Interpretation: Performing Lab: Notes/Report: [facility] , White Blood Count 8.0 4.0-11.0 [...] Performing Lab: see note ML - [facility] LB Reason For Referral No Information Medications Medication SIG (Take, Route, Frequency, Duration) Notes Start Date End Date Status Liothyronine Sodium 5 mcg Take 1 tablet orally once daily for 30 days Active Levothyroxine Sodium 100 mcg TAKE 1 TABLET BY MOUTH IN THE MORNING ON AN EMPTY STOMACH for 90 Active Accu-Chek Holly Plus w/Device as directed Active Allopurinol 300 MG 1 tablet Orally Once a day for 30 days Active Lipitor 80 MG 1 tablet Orally Once a day Active Aspirin 81 81 MG 1 tablet Orally Once a day Active Magnesium Oxide 400 MG 1 tablet Orally t hree times daily Active hydrALAZINE HCl 50 MG 1 tablet with food Orally Three times a day Active Isosorbide Mononitrate ER 120 MG 1 tablet Oral once daily for 30 days Active Lancets Super Thin A ctive Lasix 20 MG 1 tablet Orally Once a day Active OneTouch Ultra Test test blood glucose d aily for 90 days Active Pantoprazole Sodium 40 mg TAKE 1 TABLET BY MOUTH DAILY for 90 Active Tresiba FlexTouch 100 UNIT/ML 30 units Subcutaneous Twice Daily Active Carvedilol 25 mg TAKE 1 TABLET BY CHA TH TWICE DAILY (7AM and 7PM) WITH FOOD for 30 Active Nitroglycerin 0.4 MG as directed Sublingual PRN Active cloNIDine HCl 0.1 MG 1 tablet every four hours as needed Orally Q4 for 30 days As needed Active NovoLOG FlexPen 100 UNIT/ML 12 in mornin g, 16 at lunch, 22 at supper Subcutaneous Active Ferrous Sulfate 325 (65 Fe) MG 1 tablet Orally Twice Daily Active OneTouch Ultra 2 Act janet OneTouch Ultra Blue Active Immunizations Vaccine Route Administration Date Status Comme nts Flu, Fluad (7172-4623) (93808) 65 yrs+, single-dose syringe IM Intramuscular 07/11/2023 Administered Flu, Fluad (57257) 65 yrs and older, single-dose syringe IM [...] Problem Status W/U Status Risk Notes Problem 464994062 Peripheral vascular disease, unspecified (I73.9) Active confirmed Problem 09655736 Age-related osteoporosis without current pathological fracture (M81.0) Active confirmed Problem 271937920 Chronic kidney disease, unspecified (N18.9) Active confirmed Problem 696288579 Anemia in chroni c kidney disease (D63.1) Active confirmed Problem Hypomagnesemia (820189390) Hypomagnesemia (E83.42) Active confirmed Problem Hyperkalemia (18607563) Hyperkalemia (E87.5) Active confirmed Problem Hypertensive heart failure (65948928) Hypertensive heart disease with heart failure (I11.0) Active confirmed Problem Unstable angina (7499575) Unstable angina (I20.0) Active confirmed Problem 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) Active confirmed Problem 603447778 Disorder of arteries and arterioles, unspecified (I77.9) Active confirmed Problem Osteoarthritis of knee (380766553) Unilateral primary osteoarthritis, left knee (M17.12) Active confirmed Problem Collapsed vertebra (53860156) Collapsed vertebra, not elsewhere classified, lumbar region, subsequent encounter for fracture with delayed healing (M48.56XG) Active confirmed Problem Chronic kidney disease stage 4 (753414448) Chronic kidney disease, stage 4 (severe) (N18.4) Active confirmed Problem Chest pain (73911537) Chest pain (R07.9) Active confirmed Problem Hyperlipidemia (93605891) Hyperlipidemia (E78.5) Active confirmed Problem Mitral regurgitation (31105853) Mitral regurgitation (I34.0) Active confirmed Problem Hypertension (83748321) Hypertension (I10) Active confirmed Problem Gastroesophageal reflux disease (206323132) GERD (gastroesophageal reflux disease) (K21.9) Active confirmed Problem Hypothyroidism (65075880) Hypothyroidism (E03.9) Active confirmed Problem Coronary artery disease (70355350) CAD (coronary artery disease) (I25.10) Active confirmed Problem Hypertension (22556627) HTN (hypertension) (I10) Active confirmed Problem Edema (10115045) Edema (R60.9) Active confirmed Problem Coronary artery disease (05956233) Coronary artery disease (I25.10) Active confirmed Problem Arthritis (9494818) Arthritis (M19.90) Active c onfirmed Problem Osteopenia (564997591) Osteopenia (M85.80) Active confirmed Problem Gout (24700926) Gout (M10.9) Active confirmed Problem Dyspnea (199598706) Dyspnea (R06.00) Active con firmed Problem Urinary tract infectious disease (18614427) UTI (urinary tract infection) (N39.0) Active confirmed Problem Paroxysmal atrial fibrillation (219619071) Paroxysmal atrial fibrillation (I48.0) Active confirmed Problem Acute sinusitis (21929572) Acute sinusitis (J01.90) Active confirmed Problem Allergic rhinitis (25043456) Allergic rhinitis (J30.9) Active confirmed Problem Diabetes mellitus type 2 (disorder) (30433337) DM2 (diabetes mellitus, type 2) (E11.9) Active confirmed Problem Long-term 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 (645253076) long-term 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 (Z79.4) Active confirmed Problem Acute bronchitis (55826732) Acute bronchitis (J20.9) Active confirmed Problem Acquired hypothyroidism (393818181) Acquired hypothyroidism (E03.9) Active confirmed Problem Cellulitis (346484174) Cellulitis (L03.90) Active confirmed Problem Cataract (042937798) Cataract (H26.9) Active confirmed Problem Mitral insufficiency (46661172) Mitral insufficiency (I34.0) Active confirmed Problem Contact dermatitis (17234556) Contact dermatitis (L25.9) Active confirmed Problem Cervical arthritis (377525477) Cervical arthritis (M46.92) Active confirmed Problem Diabetic retinopathy (8785188) Diabetic retinopathy (E11.319) Active confirmed Problem 729725920 Low vitamin B12 level (E53.8) Active confirmed Problem Overweight (161249707) Over weight (E66.3) Active confirmed Problem Iron deficiency anemia (06761100) Anemia, iron deficiency (D50.9) Active confirmed Problem Ventricular hypertrophy (923790185) Ventricular hypertrophy (I51.7) Active confirmed Problem Primary hypothyroidism (65676424) Primary hypothyroidism (E03.9) Active confirmed Problem Iron deficiency anemia (97822675) Fe deficiency anemia (D50.9) Active confirmed Problem Hypertensive urgency (051419636) Hypertensive urgency (I10) Active confirmed Problem Vaginal discharge (825382219) Vaginal discharge (N89.8) Active confirmed Problem Type 2 diabetes mellitus with peripheral angiopathy (820665417) Diabetes mellitus type 2 with peripheral artery disease (E11.51) Active confirmed Problem At risk for falls (466031025) At risk for falls (Z91.81) Active confirmed Problem Mild nonproliferative retinopathy due to type 2 diabetes mellitus (599922121881030) Type 2 diabetes mellitus 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, 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) Active confirmed Problem Hypertensive urgency (883756374) Hypertensive urgency (I16.0) Active confirmed Problem Hypertensive emergency (300685325474141) Hypertensive emergency (I16.1) Active confirmed Problem Diabetic renal disease (263685822) 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) Active confirmed Problem Diabetes mellitus (52308479) Diabetes mellitus (E11.9) Active confirmed Problem COVID-19 (087490198) COVID-19 (U07.1) Active confirmed Problem Chronic kidney disease stage 4 (077920781) Acute worsening of stage 4 chronic kidney disease (N18.4) Active confirmed Problem Pneumonia caused by Severe acute respiratory syndrome coronavirus (disorder) (976684969) Pneumonia due to Coronavirus disease 2019 (J12.82) Active confirmed Problem Low back pain (868473765) Low back pain, unspecified (M54.50) Active confirmed Problem Low back pain (finding) (117643914) Other low back pain (M54.59) Active confirmed Vital Signs Heart Rate 67 /min 12/31/2024 Temperature 98.0 degrees Fahrenheit 04/15/2024 Oximetry 98 % 03/08/2025 Blood pressure diastolic 92 mm Hg 03/08/2025 Height 66 in 03/08/2025 Blood pressure systolic 180 mm Hg 03/08/2025 Weight 189.4 lbs 03/08/2025 BMI 30.57 kg/m2 03/08/2025 Encounters Encounter Location Date Provider Diagnosis [facility] [address] [place] [address] 04/13/2025 Jeff Hoy Right knee pain M25. 561 [facility] [address] [place] [address] 03/03/2025 Jeff Rubi [facility] [address] [place] [address] 03/10/2025 Jeff Rubi [facility] [address] [place] [address] 12/17/2024 Jeff Hoy Chronic kidney disea se, stage 4 (severe) N18.4 [facility] [address] [facility] [place] [address] 12/22/2024 Jeff [facility] [address] [facility] [place] [address] 01/18/2025 Jeff Godwiny [facility] [address] [facility] [address] [facility] [place] [address] 01/18/2025 Jeff [facility] [address] [facility] [place] [address] 02/16/2025 Jeff [facility] [address] [facility] [place] [address] 03/03/2025 Jeff Hoy Right knee pain M25. 561 [facility] [address] [facility] [place] [address] 09/02/2024 Jeff [facility] [address] [facility] [place] [address] 09/04/2024 Jeff Hoy UTI (urinary tract infection) N39.0 [facility] [address] [facility] [place] [address] 09/04/2024 Jeff [facility] [address] [facility] [place] [address] 09/07/2024 Jeff Hoy UTI (urinary tract infection) N39.0 [facility] [address] [facility] [address] [facility] [place] [address] 11/24/2024 [facility] [address] [facility] [place] [address] 12/16/2024 Jeff Hoy Chronic kidney disea se, stage 4 (severe) N18.4 [facility] [address] [facility] [place] [address] 06/10/2024 [facility] [address] [facility] [place] [address] 06/18/2024 [facility] [address] [place] [facility] [place] [address] 06/26/2024 Jeff Rubi [facility] [address] [place] [facility] [place] [address] 06/29/2024 Jeff Rubi [facility] [address] [place] [facility] [place] [facility] [address] 08/14/2024 Jeff Rubi [facility] [address] [facility] [place] [address] 09/02/2024 Jeff Rubi [facility] [address] [facility] [place] [address] 05/12/2024 Jeff Rubi [facility] [address] [place] [facility] [place] [address] 05/28/2024 Jeff Hoy Chest pain R07.9 ; Hypertension I10 ; Acute UTI N39.0 ; Chronic kidney disease, stage 4 (severe) N18.4 ; Hyperkalemia E87.5 and Anemia, unspecified D64.9 [facility] [address] [place] [place] [address] 04/14/2025 Jeff Rubi [facility] [address] [facility] [place] [address] 06/09/2024 Jeff Connellymary Encounter for Medica re annual wellness exam Z00.00 and Age-related osteoporosis without current pathological fracture M81.0 [facility] [address] [place] [address] 04/30/2024 Jeff Hoy Contact dermatitis L 25.9 [facility] [address] [place] [place] [address] 06/18/2024 Jeff Hoy Chest pain R07.9 and Hypertension I10 [facility] [address] [place] [place] [address] 09/22/2024 Jeff Hoy Dyspnea R06.00 and A cute bronchitis J20.9 [facility] [address] [place] [address] 12/31/2024 Jeff Hoy Chest pain R07.9 ; Hypertension I10 ; Coronary artery disease I25.10 and Dyspnea R06.00 [facility] [address] [place] [address] 03/05/2025 Jeff Hoy Type 2 diabetes diony itus 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, bilateral E11.3293 [facility] [address] [place] [address] 04/15/2024 Jeff Hoy Acute non-recurrent sinusitis, unspecified location J01.90 and Nasal congestion R09.81 [address] [place] [address] 11/18/2024 Jeff Hoy Paroxysmal atrial fibrillation I48.0 ; Chronic kidney disease, stage 4 (severe) N18.4 ; Acute worsening of stage 4 chronic kidney disease N18.4 ; Hypertensive heart disease with heart failure I11.0 and Chronic kidney disease due to diabetes mellitus E11.22 [address] [place] [address] 03/08/2025 Jeff Hoy Hypertension I10 ; Paroxysmal atrial fibrillation I48.0 and Diabetes mellitus type 2 with peripheral artery disease E11.[address] [address] 11/24/2024 Jeff Hoy HTN (hypertension) I [address] [address] 03/15/2025 Jeff Hoy Low vitamin B12 leve l E53.8 [address] [place] [address] 08/10/2024 Jeff Hoy Low vitamin B12 leve l E53.[address] [address] 10/13/2024 Jeff Hoy Low vitamin B12 leve l E53.[address] [address] 11/13/2024 Jeff Hoy Low vitamin B12 leve l E53.[address] [address] 12/11/2024 Jeff Hoy Low vitamin B12 leve l E53.8 [facility] [address] [place] [address] 01/11/2025 Jeff Hoy Low vitamin B12 leve l E53.8 [facility] [address] [place] [address] 02/10/2025 Jeff Hoy Low vitamin B12 leve l E53.8 [facility] [address] [place] [address] 05/12/2024 Jeff Hoy Low vitamin B12 leve l E53.8 [facility] [address] [place] [address] 06/15/2024 Jeff Hoy Low vitamin B12 leve l E53.8 [facility] [address] [place] [address] 07/08/2024 Jeff Rubi Encounter for immuni zation Z23 Assessments Encounter Date Diagnosis (ICD Code) Assessment [...] disease, stage 4 (severe) (ICD-10 - N18.4) 04/15/2024 Acute non-recurrent sinusitis, unspecified location (ICD-10 - J01.90) Rest and drink more liquids, especially water. You may use a humidifier or vaporizer to help keep the drainage moist. Fznx-rhc-zomrliz Nasal Saline may help the stuffy and runny nose. Use Ibuprofen and or Tylenol as needed for fever, chills, body aches or pain. Children 5 years old should not be given ptso-flp-gnbwpes cough and cold medications such as guaifenesin and dextromethorphan. If you're over age 5, you may try babj-enp-mcgmsnp cold medications such as guaifenesin and dextromethorphan, [...] Low vitamin B12 level (ICD-10 - E53.8) 03/05/2025 Type 2 diabetes mellitus 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, bilateral (ICD-10 - E11.3293) reviewed subars discusssed diet and exerccise , importance of staying hyudrated 03/08/2025 Hypertension (ICD-10 - I10) 03/08/2025 Paroxysmal atrial fibrillation (ICD-10 - I48.0) 03/15/2025 Low vitamin B12 level (ICD-10 - E53.8) 05/28/2024 Chest pain (ICD-10 - R07.9) 05/28/2024 Hypertension (ICD-10 - I10) 09/04/2024 UTI (urinary tract infection) (ICD-10 - N39.0) 09/07/2024 UTI (urinary tract infection) (ICD-10 - N39.0) 12/16/2024 Chronic kidney disease, stage 4 (severe) (ICD-10 - N18.4) 12/17/2024 Chronic kidney disease, stage 4 (severe) (ICD-10 - N18.4) 03/03/2025 Right knee pain (ICD-10 - M25.561) 04/13/2025 Right knee pain (ICD-10 - M25.561) 05/28/2024 Acute UTI (ICD-10 - N39.0) 03/08/2025 Diabetes mellitus type 2 with peripheral artery disease (ICD-10 - E11.51) 12/31/2024 Coronary artery disease (ICD-10 - I25.10) [...] Sensitivity Troponin 12/31/2024 [facility] Ankle Brachial Index (11256) 024 BNP 06/18/2024 CULTURE URINE 06/18/2024 CULTURE URINE 07/23/2023 CULTURE URINE 09/04/2024 URINE MICROSCOPIC ONLY 01/09/2024 URINE MICROSCOPIC ONLY 10/01/2023 URINE MICROSCOPIC ONLY 05/28/2024 XR CHEST 2 V 12/31/2024 XR CSPINE MIN 4 VIEWS 12/30/2023 XR DEXA BONE DENSITY 06/09/2024 XR KNEE RT 4V or > 04/13/2025 THYROID PANEL (T4/TSH/FREE T3) 4 Insurance Providers Payer Name Payer Address Payer Phone Subscriber Number Group Number Insured Name Patient Relationship to Insured Coverage Start Date Coverage End Date [employer] [address] [place], [place] [id number] Kylah Robin Self - patient is [...] 01/11/2025 1 mL Cyanocobalamin 02/10/2025 1 mL Cyanocobalamin 03/15/2025 1 mL Kenalog-40 04/30/2024 80 mg Medical [...] surgery Cataract OU Hospitalization History Reason Date(Month/Year) HTN 02/2024 hypertension 01/2024 Hypertension 12/2023 SEE ABOVE
--- NOTE | 2025-04-14 09:13 | XR_ITS ---
The [address] [address] Patient Name: KYLAH BERGER MRN: [id number] date: 1945 Sex: F Assigned Patient Location: [facility] Current Patient Location: [facility] Accession/Order Number: [id number] Exam Date: 04/14/2025 09:52 Report Date: 04/14/2025 09:55 At the request of: DHRUV GUTIERRES MD Procedure: XR knee RT 4V RIGHT KNEE - 4 views COMPARISON: 02/23/2025 CLINICAL DATA: Acute right knee pain since fall 2 weeks ago. AP, lateral and both oblique views were obtained. There is osteopenia. No acute fractures or dislocation are identified. Moderate narrowing at the medial tibiofemoral joint compartment is again seen. There is minimal marginal spurring. A knee effusion is noted. No soft tissue swelling is seen. XR/XR knee RT 4V IMPRESSION: OSTEOPENIA AND SIMILAR DEGENERATIVE CHANGE. KNEE EFFUSION. NO ACUTE BONY INJURY. Impression dictated by: Cary Good M.D. 04/14/2025 9:55 AM Dictation Location: [place] [address] Electronically authenticated by: [id number] Y Date: 04/14/2025 09:55
== END 2025-04-14 09:06 | disposition home or self-care (01) ==
LOC: RAD 09:07
PROVIDERS: PCP Family Medicine; Visit Provider Family Medicine
DX: M25.561 Pain in right knee (principal); M85.861 Other specified disorders of bone density and structure, right lower leg
CPT/HCPCS: 73564

== ENCOUNTER 2025-04-21 21:12 | Emergency (ER) | payer MEDICARE, SELFPAY ==
[2025-04-21 21:20] VITALS: PULSE 54; O2SAT 99; BMI 30.7
--- OUTSIDE RECORDS SUMMARY | 2025-04-21 21:21 | XMS_ITS | CCD ---
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 Name Role Phone PHYSICIAN, DEFAULT Unavailable Unavailable [...] RON Admitting Unavailable THUAN LUCAS Attending Unavailable MERRICK RUBI Referring Unavailable MERRICK RUBI Primary Care Unavailable Merrick Rubi MD Primary Care Provider [phone] Merrick Rubi MD Primary Care Provider [id number] Merrick Rubi MD Primary Care Provider [phone] Merrick Rubi MD Primary Care Provider [phone] STEFANO CATHERINE Attending Unavailable ALEJANDRO ORTIZ Attending Unavailable STEFANO CATHERINE Attending Unavailable Merrick Rubi MD Primary Care Provider [phone] LORRAINE MAYER Attending Unavailable LORRAINE MAYER Attending Unavailable GREG TINEO Attending Unavailable GA LAI Attending Unavailable PETSOFIYA, GREG A Attending Unavailable PETSOFIYA, GREG A Attending Unavailable PETSOFIYA, GREG A Attending Unavailable GA LAI Attending Unavailable LORRAINE MAYER Attending Unavailable LORRAINE MAYER Referring Unavailable GA LAI Attending Unavailable Allergies Allergy Classification Reported Allergen(s) Allergy Type Date of Onset Reaction(s) Facility (20 sources) amLODIPine; Translations: [AMLODIPINE] Drug Allergy 03-28-20 05 Unknown, [facility] Repository (20 sources) Amoxicillin / Clavulanate Drug Allergy 11-23-19 [facility] Other (20 sources) Contrast media Propensity to adverse reactions Unknown [facility] Other (2 sources) Doxazosin; Translations: [doxazosin] Drug Allergy Unknown [facility] Other (20 sources) Sulfamethoxazole / Trimethoprim Drug Allergy 11-23-19 [facility] Other (20 sources) Doxazosin; Translations: [DOXAZOSIN] Drug Allergy 11-23-19 21 Unknown, [facility] Repository (9 sources) Amoxicillin / Clavulanate; Translations: [Augmentin] Drug Allergy 11-16-19 16 Unknown [facility] Repository (1 source) amLODIPine Drug Allergy 04-25-20 14 [facility] Repository (1 source) Sulfamethoxazole / Trimethoprim Drug Allergy 03-09-20 13 [facility] Repository (2 sources) Sulfamethoxazole / Trimethoprim; Translations: [SULFAMETHOXAZOLE-T RIMETHOPRIM] Drug Allergy 08-04-20 15 [facility] Repository (20 sources) IODINATED CONTRAST MEDIA; Translations: [IODINATED CONTRAST MEDIA] Propensity to adverse reactions to drug (disorder) 11-23-19 21 Other [facility] Repository (20 sources) AMOXICILLIN-POT CLAVULANATE; Translations: [AMOXICILLIN-POT CLAVULANATE] Propensity to adverse reactions to drug (disorder) 11-23-19 21 Unknown [facility] Repository (20 sources) Amoxicillin Drug Allergy 03-12-20 23 Unknown [facility] (20 sources) Doxazosin Drug Allergy 03-12-20 23 Unknown [facility] (20 sources) Sulfamethoxazole; Translations: [SULFAMETHOXAZOLE] Allergy to substance 03-12-20 23 Unknown [facility] Healthcare (20 sources) Trimethoprim Drug Allergy 03-12-20 23 Unknown [facility] Healthcare (1 source) Clavulanate Drug Allergy 01-15-20 25 Unknown Reaction [facility] Medications Current Medications Medication Drug Class(es) [...] needed Orally every 6 hrs Active allopurinol 100 mg oral tablet (20 sources) Xanthine Oxidase Inhibitor Start: take 1 tablet by mouth once daily Allopurinol 100 mg tablet Active 100 MG PO Daily June 15, 2024 12:00am Start: 10-09-2019 End: 06-15-2024 Allopurinol 300 mg tablet Discontinued 100 MG PO Daily October 09, 2019 1:00am June 15, 2024 10:31am take 1 tablet by enzo th in the morning allopurinoL (ZYLOPRIM) 300 mg tablet Take 1 tablet (300 mg total) by mouth in the morning. Active take 1 tablet by enzo th three times daily allopurinol (Zyloprim) 100 MG tablet take 1 tablet by oral route 3 times every day Oral Active aspirin 81 mg chewable tablet (20 sources) Platelet Aggregation Inhibitor, Nonsteroidal Anti-inflammatory Drug Start: 12-04-2023 take 1 tablet by mouth once daily Aspirin 81 mg tablet,chewable Active 1 TAB PO Daily December 04, 2023 1:00am Free[employer] tablet Orally Once a day; Note: Source Status: Taking; Provider: Doreen Velasquez ( ) Start: 01-11-2021 take 1 tablet by enzo th once daily aspirin 81 mg Indications: Hypertensive urgency , Shortness of breath , H/O four vessel coronary artery bypass graft , Atherosclerosis of [place] coronary artery 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 angina pectoris , Paroxysmal atrial fibrillation (CMS-HCC) , Localized edema Take 1 tablet (81 mg total) by mouth daily. 90 tablet 3 01/11/2021 Active Start: 10-09-2019 End: 10-13-2019 take 1 tablet by mouth once daily Aspirin 81 mg Tablet,Delayed Release (Dr/Ec) Discontinued 81 MG PO Daily October 09, 2019 1:00am October 13, 2019 3:07pm take 1 tablet by enzo th every twenty-four hours Aspirin 81 MG 1 tablet Orally Once a day Active atorvastatin 80 mg oral tablet (20 sources) HMG-CoA Reductase Inhibitor Start: 03-12-2025 take 1 tablet by mouth once daily atorvastatin (LIPITOR) 80 mg tablet Indications: Atherosclerosis of [place] coronary artery 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 angina pectoris , H/O four vessel coronary artery bypass graft , Hyperlipidemia, unspecified hyperlipidemia type TAKE 1 TABLET BY MOUTH NIGHTLY 45 tablet 03/12/2025 Active Start: 12-27-2022 End: 03-12-2025 take 1 tablet by mouth once daily atorvastatin (LIPITOR) 80 mg tablet Indications: Atherosclerosis of [place] coronary artery 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 angina pectoris , H/O four vessel coronary artery bypass graft , Hypertensive urgency , Shortness of breath , Paroxysmal atrial fibrillation (CMS-HCC) , Localized edema TAKE 1 TABLET BY MOUTH NIGHTLY 90 tablet 2024 03/12/2025 Discontinued ATORVASTATIN BASSAM CIUM PO Atorvastatin Calcium Active betamethasone 0.5 mg/ml topical cream (20 sources) Corticosteroid Start: 05-25-2024 End: 06-04-2024 betamethasone dipropionate 0.05 % cream Indications: Granuloma annulare Apply to affected areas, up to twice a day when flared, do not use one the face, groin, or underarms, 30 day supply 45 g 11 06/04/2024 Active carvedilol 25 mg oral tablet (20 sources) alpha-Adrenergic Gato, beta-Adrenergic Gato Start: 06-15-2024 take 1 tablet by mouth twice daily Carvedilol 25 mg tablet Active 25 MG PO Twice daily June 15, 2024 12:00am Start: 01-17-2024 take 2 tablets by mo ut once in the morning, then take 2 [...] 180 tablet 3 08/06/2022 01/17/2024 Discontinued (Reorder) CARVEDILOL PO Ca rvedilol Active cholecalciferol 0.125 mg oral tablet (4 sources) Vitamin D Start: 06-15-2024 take 1 tablet by mouth once daily Cholecalciferol (Vitamin D3) 125 mcg (5,000 unit) tablet Active 125 MCG PO Daily June 15, 2024 12:00am End: 01-17-2024 take 1 tablet by mouth in the morning cholecalciferol, vitamin D3, 5,000 units tablet Take 1 tablet (5,000 Units total) by mouth in the morning. 01/17/2024 Discontinued (Therapy completed) ciprofloxacin 500 mg oral tablet (3 sources) Quinolone Antimicrobial take 1 tablet by mouth every twelve hours Cipro 500 MG 1 tablet Orally every 12 hrs Active cloNIDine hydrochloride 0.1 mg oral tablet (10 sources) Central alpha-2 Adrenergic Agonist Start: take 1 tablet by mouth every four hours as needed Clonidine Hcl 0.1 mg tablet Active 0.1 MG PO Every 4 hours as needed June 15, 2024 12:00am Start: 01-01-2024 End: 01-17-2024 take 2 tablets by mouth in the morning, then take 2 tablets by mouth at bedtime cloNIDine (CATAPRES) 0.1 mg tablet Take 2 tablets (0.2 mg total) by mouth in the morning and 2 tablets (0.2 mg total) before bedtime. 01/01/2024 01/17/2024 Discontinued diclofenac sodium 75 mg delayed release oral tablet (15 sources) Nonsteroidal Anti-inflammatory Drug take 1 tablet by mouth in the morning diclofenac (Voltaren) 75 MG EC tablet Take 1 tablet by mouth in the morning and 1 tablet before bedtime. Do not crush, chew, or split. Active docusate sodium 50 mg / sennosides, longterm 8.6 mg oral tablet (5 sources) take 1 tablet by mouth every twelve hours Sennosides-Docusate Sodium 8.6-50 MG 1 tablet in the evening as needed Orally every 12 hours Active epoetin [id number] 88723 UNT/ML Injectable Solution [Retacrit] (14 sources) Retacrit 86531 U NIT/ML as directed Injection Active ferrous sulfate 325 mg oral tablet (20 sources) Start: 06-15-2024 take 1 tablet by mouth twice daily Ferrous Sulfate 325 mg (65 mg iron) tablet Active 325 MG PO Twice daily June 15, 2024 12:00am Start: 10-09-2019 End: 12-04-2023 take 1 tablet by mouth once daily Ferrous Sulfate 325 mg (65 mg iron) Tablet Discontinued 325 MG PO Daily October 09, 2019 1:00am December 04, 2023 9:54am take 1 tablet by enzo twice daily take 1 tablet by enzo th twice daily Ferrous Sulfate 325 (65 Fe) MG 1 tablet Orally bid for 90 day(s) Active hydrALAZINE hydrochloride 50 mg oral tablet (2 sources) Arteriolar Vasodilator Start: 01-14-2025 take 1 tablet by mouth three times daily Hydralazine 50 mg tablet Active 50 MG PO Three times daily January 14, 2025 12:00am Start: 06-15-2024 End: 01-14-2025 take 1 tablet by mouth three times daily Hydralazine 25 mg tablet Discontinued 25 MG PO Three times daily June 15, 2024 12:00am January 14, 2025 9:21am hydrocortisone acetate 25 mg rectal suppository (20 sources) Corticosteroid hydrocortisone ( Anusol-HC) 25 MG suppository Active hydrocortisone ( Anusol-HC) 25 MG suppository insert 1 suppository by rectal route 2 times every day for 2 weeks Rectal Active Insulin Aspart U-100 (Novolo g Flexpen U-100 Insulin) 100 unit/mL (3 mL) insulin pen (2 sources) Start: 06-15-2024 Insulin Aspart U-100 (Novolog Flexpen U-100 Insulin) 100 unit/mL (3 mL) insulin pen Active SUBCUT Three times daily June 15, 2024 10:33am FreeTextSig: Use as Directed Subcutaneous 12 units in am, 16 units at noon, 22 units at supper.; Note: Source Status: Taking; Provider: Doreen Velasquez ( ) Start: 12-04-2023 End: 06-15-2024 Insulin Aspart U-100 (Novolo g Flexpen U-100 Insulin) 100 unit/mL (3 mL) insulin pen Discontinued SUBCUT December 04, 2023 1:00am June 15, 2024 10:37am FreeTextSig: Use as Directed Subcutaneous 10 units in am, 15 units at noon, 20 units at supper.; Note: Source Status: Taking; Provider: Doreen Velasquez ( ) 3 ml insulin aspart, human 100 unt/ml pen injector (20 sources) Insulin Analog Start: 06-15-2024 insulin aspart (NovoLOG FLEXPEN) 100 UNIT/ML pen Inject 10-15 Units under the skin in the morning and 10-15 Units at noon and 10-15 Units in the evening. Inject with meals. 10-12-15 according to meal size (plus sliding scale ISS #2) expect up to 80 Units total daily use. 06/15/2024 Active Start: 10-09-2019 End: 06-15-2024 inject 4 [IU] by subcutaneous injection once before mealtime Insulin Aspart U-100 (Novolog Flexpen U-100 Insulin) 100 unit/mL (3 mL) Insulin Pen Discontinued 4 UNITS SUBCUT 3x/Day before meals & bedtime October 09, 2019 1:00am June 15, 2024 10:33am insulin aspart ( NovoLOG FLEXPEN) 100 UNIT/ML [...] at noon, 20 units at supper. Active Insulin Degludec (Tresiba Flextouch U-100) 100 unit/mL (3 mL) insulin pen (1 source) Start: 01-14-2025 Insulin Deglud ec (Tresiba Flextouch U-100) 100 unit/mL (3 mL) insulin pen Active 30 UNIT SUBCUT Twice daily January 14, 2025 12:00am 24 hr isosorbide mononitrate 120 mg extended release oral tablet (9 sources) Nitrate Vasodilator Start: 06-15-2024 take 1 tablet by mouth once daily in the morning, then take 1 tablet by mouth every twenty-four hours Isosorbide Mononitrate 120 mg tablet extended release 24 hr Active 120 MG PO Every morning June 15, 2024 12:00am Start: 01-17-2024 take 1 tablet by enzo once daily isosorbide mononitrate (IMDUR) 30 mg 24 hr tablet Take 1 tablet (30 mg total) by mouth daily. 90 tablet 3 01/17/2024 Active Start: 10-09-2019 End: 12-04-2023 take 1 tablet by mouth once daily, then take 1 tablet by mouth every twenty-four hours Isosorbide Mononitrate 120 mg tablet extended release 24 hr Discontinued 120 MG PO Daily October 09, 2019 1:00am December 04, 2023 9:54am Levemir FlexTouch 100 UNIT/M L (11 sources) Levemir FlexTouc h 100 UNIT/ML As Directed Subcutaneous 50 units twice a day Active levothyroxine sodium 0.1 mg oral tablet (20 sources) l-Thyroxine Start: 06-15-2024 take 1 tablet by mouth once daily Levothyroxine 100 mcg tablet Active 100 MCG PO Daily June 15, 2024 12:00am Start: 10-09-2019 End: 12-04-2023 take 1 tablet by mouth once daily Levothyroxine 125 mcg tablet Discontinued 125 MCG PO Daily October 09, 2019 1:00am December 04, 2023 9:51am take 2 tablets by mo [facility] before mealtime levothyroxine (Synthroid, Levoxyl) 150 MCG tablet Take 2 tablets by mouth in the morning. Take before meals. Active take 1 tablet by enzo th before mealtime levothyroxine (Synthroid, Levoxyl) 150 MCG tablet Take 1 tablet by mouth in the morning. Take before meals. Active take 1 tablet by enzo th once daily in the morning Synthroid 125 MCG 1 tablet on an empty stomach in the morning Orally Once a day Active liothyronine sodium 0.005 mg oral tablet (20 sources) l-Triiodothyronine Start: 06-15-2024 take 1 tablet by mouth once daily in the morning Liothyronine 5 mcg tablet Active 5 MCG PO Every morning June 15, 2024 10:30am Start: 12-05-2021 End: 06-15-2024 take 2 tablets by mouth in the morning liothyronine (CYTOMEL) 5 MCG tablet Take 2 tablets (10 mcg total) by mouth in the morning. 12/05/2021 Active take 2 tablets by [facility] every twenty-four hours Liothyronine Sodium 5 MCG 2 tablets on an empty stomach Orally Once a day Active take 2 tablets by [facility] every twenty-four hours lisinopril 20 mg oral tablet (20 sources) Angiotensin Converting Enzyme Inhibitor Start: 01-17-2024 take 1 tablet by mouth in the morning lisinopriL (PRINIVIL,ZESTRIL) 20 mg tablet Take 1 tablet (20 mg total) by mouth in the morning. 01/17/2024 Active Start: 12-17-2023 End: 06-15-2024 take 1 tablet by mouth once daily Lisinopril 20 mg tablet Discontinued 0 .ROUTE .COMPLEX 90 December 17, 2023 5:41pm June 15, 2024 10:35am TAKE 1 TABLET BY MOUTH ONCE DAILY Start: 01-18-2022 take 1 tablet by enzo every twenty-four hours Lisinopril 10 MG 1 tablet Orally Once a day for 90 day(s) Jan, Active Start: 01-15-2022 End: 01-17-2024 take 1 tablet by mouth in the morning lisinopriL (PRINIVIL,ZESTRIL) 5 mg tablet Take 1 tablet (5 mg total) by mouth in the morning. 30 tablet 11 01/15/2022 01/17/2024 Discontinued Start: 10-09-2019 End: 12-17-2023 take 1 tablet by mouth once daily Lisinopril 40 mg tablet Discontinued 40 MG PO Daily 90 90 December 09, 2023 11:27am December 17, 2023 5:42pm take 1 tablet by enzo th every twenty-four hours Lisinopril 20 MG 1 tablet Orally Once a day for 90 days Active Magnesium (20 sources) MAGNESIUM PO Act janet MAGNESIUM PO Mag nesium Active magnesium oxide 400 mg oral tablet (20 sources) Start: 03-12-2025 take 1 tablet by mouth three times daily magnesium oxide (MAGOX) 400 mg tablet Indications: Paroxysmal atrial fibrillation (CMS-HCC) , Localized edema TAKE 1 TABLET BY MOUTH THREE TIMES DAILY 45 tablet 03/12/2025 Active Start: 07-09-2023 End: 03-12-2025 take 1 tablet by mouth three times daily magnesium oxide (MAGOX) 400 mg tablet TAKE 1 TABLET BY MOUTH THREE TIMES DAILY 270 tablet 2024 03/12/2025 Discontinued Start: 10-09-2019 End: 06-15-2024 take 1 tablet by mouth once daily Magnesium Oxide 400 mg (241.3 mg magnesium) tablet Discontinued 400 MG PO Daily October 09, 2019 1:00am June 15, 2024 10:37am take 1 tablet by enzo th every twelve hours Magnesium Oxide 400 MG 1 Tablet Orally twice a day for 90 Active minocycline 100 mg oral capsule (20 sources) Tetracycline-class Drug take 1 capsule b y mouth every twelve hours minocycline 100 MG capsule 1 capsule every 12 (twelve) hours Active Multi For Her 50+ - (20 sources) Multi For Her 50 + - Orally Active kvlddhhvcqkp-lbni-ruyuzatl-f olic acid (Centrum) chewable tablet (20 sources) multivitamin-iro d-iwlottgj-tviam acid (Centrum) chewable tablet Chew 1 tablet Daily Active multivitamin-iro h-laxqhutx-laeck acid (Centrum) chewable tablet Chew 1 tablet in the morning. Active nitroglycerin 0.4 mg sublingual tablet (2 sources) Nitrate Vasodilator Start: 10-09-2019 End: 06-15-2024 Nitroglycerin 0.4 mg tablet, sublingual Active 0.4 MG SUBLINGUAL every 5 to 15 minutes as needed for Chest Pain June 15, 2024 10:36am pantoprazole 40 mg delayed release oral tablet (20 sources) Proton Pump Inhibitor Start: 12-19-2020 take 1 tablet by mouth in the morning pantoprazole (PROTONIX) 40 mg EC tablet Take 1 tablet (40 mg total) by mouth in the morning. 12/19/2020 Active PANTOPRAZOLE SOD IUM PO Active PANTOPRAZOLE SOD IUM PO Pantoprazole Sodium Active Pantoprazole 40 mg tablet,delayed release (DR/EC) (1 source) Start: 06-15-2024 take 1 tablet by mouth once daily Pantoprazole 40 mg tablet,delayed release (DR/EC) Active 40 MG PO Daily June 15, 2024 12:00am 12 hr ranolazine 500 mg extended release oral tablet (15 sources) Anti-ang inal take 1 tablet by mouth every twelve hours in the morning ranolazine (Ranexa) 500 MG 12 hr tablet Take 1 tablet by mouth in the morning and 1 tablet before bedtime. Do not crush, chew, or split. Active retacrit 28305 unit/ml solution (5 sources) Retacrit 66484 U NIT/ML as directed Injection Active Sennosides-Docusate [...] Drug Class(es) Dates Sig (Normalized) Sig (Original) alendronic acid 70 mg oral tablet (16 sources) Bisphosphonate Start: 10-09-2019 End: 12-04-2023 take 1 tablet by mouth every week Alendronate (Fosamax) 70 mg Tablet Discontinued 70 MG PO every week October 09, 2019 1:00am December 04, 2023 9:54am take 1 tablet by mouth in the mo rning alendronate (Fosamax) 70 MG tablet Take 1 tablet by mouth every 7 (seven) days Take in the morning with a full glass of water, on an empty stomach, and do not take anything else by mouth or lie down for the next 30 min. Active calcium carbonate 1250 mg or al tablet (3 sources) Start: 10-09-2019 End: 06-15-2024 Calcium Carbonate (Calcium 5 00) 500 mg calcium (1,250 mg) Tablet Discontinued 800 MG PO Daily October 09, 2019 1:00am June 15, 2024 10:35am take 1 tablet by enzo th every twenty-four hours Calcium 600 MG 1 tablet with meals Orally Once a day Active furosemide 20 mg oral tablet (20 sources) Loop Diuretic Start: 01-14-2025 End: 01-14-2025 take 2 tablets by mouth once daily in the morning Furosemide 20 mg tablet Discontinued 40 MG PO Every morning January 14, 2025 9:41am January 14, 2025 9:42am Start: 01-14-2025 End: 01-14-2025 take 1 tablet by mouth once daily in the morning Furosemide 20 mg tablet Discontinued 20 MG PO Every morning January 14, 2025 9:41am January 14, 2025 9:41am Start: 01-14-2025 take 1 tablet by enzo th once daily Furosemide 40 mg tablet Active 40 MG PO Daily January 14, 2025 12:00am Start: 06-17-2024 End: 01-14-2025 take 1 tablet by mouth once daily Furosemide 20 mg tablet Discontinued 0 .ROUTE .COMPLEX December 12, 2024 2:53pm January 14, 2025 9:25am TAKE 1 TABLET BY MOUTH DAILY Start: 12-25-2023 End: 06-17-2024 take 1 tablet by mouth once daily Furosemide 20 mg tablet Discontinued 20 MG PO Daily December 25, 2023 3:14pm June 17, 2024 10:58am End: 01-17-2024 take 1 tablet by mouth twice daily furosemide (LASIX) 20 mg tablet Take 1 tablet (20 mg total) by mouth 2 (two) times a day. 01/17/2024 Discontinued (Therapy completed) take 1 tablet by enzo th once daily Furosemide 20 mg TAKE 1 TABLET BY MOUTH ONCE DAILY for 90 Active hydroCHLOROthiazide 25 mg oral tablet (20 sources) Thiazide Diuretic Start: 10-09-2019 End: 12-04-2023 take 2 tablets by mouth once daily Hydrochlorothiazide 25 mg Tablet Discontinued 50 MG PO Daily October 09, 2019 1:00am December 04, 2023 9:54am HYDROCHLOROTHIAZ JOANNE PO Active HYDROCHLOROTHIAZ JOANNE PO hydroCHLOROthiazide Active 3 ml insulin detemir 100 unt/ml pen injector (20 sources) Insulin Analog Start: 06-15-2024 End: 01-14-2025 Insulin Detemir U-100 (Levemir Flextouch U100 Insulin) 100 unit/mL (3 mL) insulin pen Discontinued 30 UNIT SUBCUT Twice daily June 15, 2024 10:33am January 14, 2025 9:23am Start: 01-03-2021 insulin detemi r U-100 (LEVEMIR) 100 unit/mL injection Inject 30 units in the morning and 25 units at night - closely monitor blood sugars and follow up with your PCP in 1-2 weeks 1 [address] 01/03/2021 Active Start: 10-09-2019 End: 06-15-2024 Insulin Detemir U-100 (Levem ir Flextouch U100 Insulin) 100 unit/mL (3 mL) Insulin Pen Discontinued 70 UNIT SUBCUT Twice daily October 09, 2019 1:00am June 15, 2024 10:37am took 35 units this am End: 07-13-2024 insulin detemir (Levemir Fle xPen) 100 UNIT/ML pen inject by subcutaneous route as per insulin sliding scale protocol Subcutaneous 07/13/2024 Discontinued (Formulary change) Levemir FlexTouc h 100 UNIT/ML As Directed Subcutaneous 50 units twice a day Active labetalol hydrochloride 200 mg oral tablet (20 sources) beta-Adrenergic Gato Start: 10-09-2019 End: 12-04-2023 take 2 tablets by mouth once daily in the morning Labetalol 200 mg Tablet Discontinued 400 MG PO Every morning October 09, 2019 1:00am December 04, 2023 9:53am Start: 10-09-2019 End: 12-04-2023 Labetalol 200 mg Tablet Disc ontinued 450 MG PO Daily at bedtime October 09, 2019 1:00am December 04, 2023 9:53am LABETALOL HCL PO labetalol Active meloxicam 15 mg oral tablet (1 [...] L Take by mouth daily. 0 Active Pwnpleucllos-Cpln-Oigyi Acid (Centrum) 18-400 mg-mcg Tablet (1 source) Start: 10-09-2019 End: 06-15-2024 take 1 tablet by mouth once daily Qiojwwdevqob-Puht-Fcojk Acid (Centrum) 18-400 mg-mcg Tablet Discontinued 1 TAB PO Daily October 09, 2019 1:00am June 15, 2024 10:35am Nitrofurantoin Monohyd/M-Cryst 100 mg capsule (1 source) Start: 09-10-2024 End: 09-10-2024 take 1 capsule by mouth twice daily Nitrofurantoin Monohyd/M-Cryst 100 mg capsule Discontinued 100 MG PO Twice daily September 10, 2024 1:00am September 10, 2024 10:28am RETACRIT INJECTION (20 sources) Start: 11-18-2023 RETACRIT [...] 05-30-2022 RETACRIT INJEC TION May, 1000 mL simvastatin 80 mg oral tablet (1 source) HMG-CoA Reductase Inhibitor Start: 10-09-2019 End: 12-04-2023 take 1 tablet by mouth once daily at bedtime Simvastatin 80 mg tablet Discontinued 80 MG PO Daily at bedtime October 09, 2019 1:00am December 04, 2023 9:46am Problems Active Problems Problem Classification Problem Date Documented Date Episodic/Chronic Acute bronchitis (4 sources) Acute bronchitis, unspecified; Translations: [ACUTE BRONCHITIS UNSPECIFIED] Onset: 3 Episodic Administrative/socia l admission (8 sources) Patient encounter status; Translations: [Dietary counseling and surveillance] 07-13-2024 Episodic Cardiac dysrhythmias (15 sources) Paroxysmal atrial fibrillation; Translations: [Atrial fibrillation] Onset: 1 01-11-2021 Chronic Chronic kidney disease (20 sources) Chronic kidney disease stage 3; Translations: [Chronic kidney disease, stage 3 (moderate)] Onset: 2 Resolved: 2 Chronic Coagulation and hemorrhagic disorders (2 sources) Senile purpura; Translations: [Other nonthrombocytopenic purpura] 03-23-2025 Episodic Congestive heart failure; nonhypertensive (1 source) Unspecified diastolic (congestive) heart failure; Translations: [UNSPECIFIED DIASTOLIC HEART FAILURE] Onset: 2 Chronic Coronary atherosclerosis and other heart disease (20 sources) Other forms of angina pectoris; Translations: [Atherosclerotic heart disease of [place] coronary artery without angina pectoris] Onset: 1 01-17-2024 Chronic Deficiency and other anemia (20 sources) Anemia of renal disease; Translations: [Anemia in chronic kidney disease] 12-09-2023 Chronic Deficiency and other anemia (20 sources) [...] Resolved: 2 Chronic Diabetes mellitus without complication (11 sources) Type 2 diabetes mellitus without complication; Translations: [Type 2 diabetes mellitus without complications] 06-25-2024 Chronic Disorders of lipid metabolism (20 sources) Mixed hyperlipidemia; Translations: [Mixed hyperlipidemia] Onset: 2 07-13-2024 Chronic Essential hypertension (20 sources) Hypertensive disorder; Translations: [Essential (primary) hypertension] Onset: 1 07-13-2024 Chronic Fluid and electrolyte disorders (8 sources) Hyperkalemia Episodic Genitourinary symptoms and ill-defined conditions (9 sources) Dysuria; Translations: [Microalbuminuria] Onset: 2 07-13-2024 Episodic Gout and other crystal arthropathies (20 sources) Chronic gouty arthritis; Translations: [Idiopathic chronic gout, unspecified site, without tophus (tophi)] Onset: 2 Resolved: 2 Chronic Heart valve disorders (2 sources) Rheumatic disorders of both mitral and aortic valves; Translations: [Rheumatic disorders of both mitral and aortic valves] Onset: 5 Chronic Hypertension with complications and secondary hypertension (20 sources) Hypertensive renal disease; Translations: [Hypertensive chronic kidney disease with stage 1 through stage 4 chronic kidney disease, or unspecified chronic kidney disease] Onset: 1 Resolved: 2 Chronic Mycoses (2 sources) Onychomycosis; Translations: [Tinea unguium] 06-25-2024 Episodic Nutritional deficiencies (6 sources) Vitamin D deficiency; Translations: [Vitamin D deficiency, unspecified] 07-13-2024 Chronic Osteoarthritis (9 sources) Arthritis; Translations: [Unspecified osteoarthritis, unspecified site] 11-23-2020 Chronic Other aftercare (6 sources) Long-term 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; Translations: [long-term (current) use of insulin] 07-13-2024 Episodic Other and ill-defined heart disease (2 sources) Cardiomegaly; Translations: [Cardiomegaly] Onset: 5 Chronic Other circulatory disease (2 sources) Arterial, [...] hyperparathyroidism; Translations: [Secondary hyperparathyroidism of renal origin] 06-05-2024 Chronic Other diseases of kidney and ureters (16 sources) Secondary hyperparathyroidism of renal origin; Translations: [Secondary hyperparathyroidism (of renal origin)] Onset: 2 Resolved: 2 Chronic Other lower respiratory disease (5 sources) Shortness of breath; Translations: [Dyspnea] Onset: 4 12-21-2023 Episodic Other lower respiratory disease (9 sources) Dyspnea; Translations: [Dyspnea, unspecified] 11-23-2020 Episodic Other nutritional; endocrine; and metabolic disorders (20 sources) Hypomagnesemia; Translations: [Hypomagnesemia] Chronic Other nutritional; endocrine; and metabolic disorders (20 sources) Obese class I; Translations: [Body mass index (BMI) 31.0-31.9, adult] Chronic Other nutritional; endocrine; and metabolic disorders (18 sources) Body mass index 30+ - obesity; Translations: [Obesity, unspecified] Onset: 1 01-11-2021 Chronic Other nutritional; endocrine; and metabolic disorders (9 sources) Obesity; Translations: [Obesity, unspecified] Onset: 2 01-15-2022 Chronic Other screening for suspected conditions (not mental disorders or infectious disease) (4 sources) Encounter for screening mammogram for malignant neoplasm of breast; Translations: [ENC SCR MAMMO MALIG NEOPLASM BREAST] Onset: 3 Episodic Other skin disorders (2 sources) Callosity; Translations: [Corns and callosities] 06-25-2024 Episodic Other skin disorders (2 sources) Inflamed seborrheic keratosis; Translations: [Inflamed seborrheic keratosis] 03-23-2025 Episodic Other skin disorders (2 sources) Seborrheic keratosis; Translations: [Other seborrheic keratosis] 03-23-2025 Episodic Other skin disorders (2 sources) Lentiginosis; Translations: [Other melanin hyperpigmentation] 03-23-2025 Episodic Peripheral and visceral atherosclerosis (1 source) Peripheral vascular disease, unspecified; Translations: [Peripheral arterial disease] 12-04-2023 Chronic Residual codes; unclassified (1 source) Family history [...] edema] Onset: 4 Episodic Residual codes; unclassified (4 sources) Localized edema; Translations: [Localized edema] 12-21-2023 Episodic Thyroid disorders (6 sources) Pema thyroiditis; Translations: [Autoimmune thyroiditis] 07-13-2024 [...] Translations: [Weakness] Onset: 09-13-2022 Episodic Mood disorders (9 sources) Mood disorders Onset: 12-28-2020 12-28-2020 Nonspecific [...] Test Name Value Interpretation Reference Range Facility No Panel Informationon 03-23 [facility] Office Visiton 02-25-2025 Follow-up visit [id number] Kylah Robin 1945 F Date Provider Department Center 02/25/2025 Yassine-STEFANO CATHERINE ANNIA Stacy Family History Family history unknown: Yes Level of Service:55702 [place] OFFICE/OUTPATIENT ESTABLISHED MOD MDM 30 MIN Normal [facility] Glucose (Bld) [Mass/Vol]on 0 02-15-2025 Glucose Blood, POC 238 mg/dL [facility] Laboratory - Hematology and Cell countson 02-15-2025 HbA1c (Bld) [Mass fraction] 6.6 % [facility] No Panel Informationon 02-15 [facility] Erythrocyte distribution wid th Auto (RBC) [Ratio]on 01-05-2025 Erythrocyte distribution width (RBC) [Ratio] Erythrocyte distribution width [Ratio] by Automated count High 11.0-15.0 [facility] Estimated glomerular filtrat ion rate (GFR) non- Americanon 01-05-2025 GFR/1.73 sq M.predicted among non-blacks MDRD (S/P/Bld) [Vol rate/Area] Estimated glomerular filtration rate (GFR) non- Low >=60 mL/min/1.73m 2 [facility] Hematocrit Auto (Bld) [Volum e fraction]on 01-05-2025 Hematocrit (Bld) [Volume fraction] Hematocrit [Volume Fraction] of Blood by Automated count Low 36.0-48.0 [facility] Hemoglobin [Mass/volume] in Bloodon 01-05-2025 Hemoglobin (Bld) [Mass/Vol] Hemoglobin [Mass/volume] in Blood Low 12.0-16.0 [facility] Iron binding capacity [Mass/ volume] in Serum or Plasmaon 01-05-2025 Iron binding capacity [Mass/Vol] Iron binding capacity [Mass/volume] in Serum or Plasma Low 250.0-450.0 [facility] Iron saturation [Mass Fracti on] in Serum or Plasmaon 01-05-2025 Iron saturation [Mass fraction] Iron saturation [Mass Fraction] in Serum or Plasma [facility] Laboratory - Chemistry and C hemistry - challengeon 01-05-2025 Albumin [Mass/Vol] 3.3 g/dL Low 3.4-5.0 [facility] Calcium [Mass/Vol] 9.2 mg/dL 8.5-10.1 [facility] Chloride [Moles/Vol] 105 mmol/L 98-107 [facility] CO2 [Moles/Vol] 24.4 mmol/L 21.0-32.0 [facility] Creatinine [Mass/Vol] 1.89 mg/dL High 0.55-1.02 [facility] Ferritin [Mass/Vol] 499.0 ng/mL High 8.0-252.0 [facility] GFR/1.73 sq M.predicted MDRD (S/P/Bld) [Vol rate/Area] 31 mL/min/{1.73_m2} Low >=60 mL/min/1.73m 2 [facility] Glucose [Mass/Vol] 122 mg/dL High 74-106 [facility] Iron [Mass/Vol] 69.0 ug/dL 50.0-170.0 [facility] Magnesium [Mass/Vol] 1.9 mg/dL 1.8-2.4 [facility] Potassium [Moles/Vol] 4.7 mmol/L 3.5-5.1 [facility] Sodium [Moles/Vol] 141 mmol/L 136-145 [facility] Urate [Mass/Vol] 3.9 mg/dL 2.6-6.0 [facility] Urea nitrogen [Mass/Vol] 35.0 mg/dL High 7.0-18.0 [facility] Urea nitrogen/Creatinine [Mass ratio] 18.5 mg/mg [facility] Laboratory - Urinalysison Protein (U) [Mass/Vol] 108.9 mg/dL High <=11.9 [facility] Leukocytes [#/volume] correc jean for nucleated erythrocytes in Blood by Automated counon 01-05-2025 WBC corrected for nucl RBC Auto (Bld) [#/Vol] Leukocytes [#/volume] corrected for nucleated erythrocytes in Blood by Automated coun 4.0-11.0 [facility] MCH Auto (RBC) [Entitic mass ]on 01-05-2025 MCH (RBC) [Entitic mass] MCH [Entitic mass] by Automated count 26.7-34.0 [facility] MCHC Auto (RBC) [Mass/Vol]on 01-05-2025 MCHC (RBC) [Mass/Vol] MCHC [Mass/volume] by Automated count 29.9-35.2 [facility] MCV Auto (RBC) [Entitic vol] on 01-05-2025 MCV (RBC) [Entitic vol] MCV [Entitic volume] by Automated count 81.0-99.0 [facility] No Panel Informationon 01-05 Urine Random Creatinine 157.18 mg/dL 20.00-300. 00 [facility] 25-Hydroxy Vitamin D Total 30.9 ng/mL [facility] Comment on above: <20 ng/mL Vit D defi cient20-<30 ng/mL Vit D [id number] ng/mL Vit D sufficient>100 ng/mL Potential Toxicity Parathyroid Hormone (Intact) 73 pg/mL Abnormal 15-65 [facility] Comment on above: Performed at: - [facility] [address] [id number] Director: Ashok Benson PhD, Phone: [phone] Phosphorus Level 3.8 mg/dL 2.6-4.7 [facility] Platelet mean volume Auto (B ld) [Entitic vol]on 01-05-2025 Platelet mean volume (Bld) [Entitic vol] Platelet mean volume [Entitic volume] in Blood by Automated count Low 9.5-13.5 [facility] Platelets Auto (Bld) [#/Vol] on 01-05-2025 Platelets (Bld) [#/Vol] Platelets [#/volume] in Blood by Automated count 150-450 [facility] RBC Auto (Bld) [#/Vol]on RBC (Bld) [#/Vol] Erythrocytes [#/volume] in Blood by Automated count Low 4.20-5.40 [facility] Serum or plasma anion gap de terminationon 01-05-2025 Anion gap [Moles/Vol] Serum or plasma anion gap determination [facility] Urine protein/creatinine rat ioon 01-05-2025 Protein/Creatinine (U) [Ratio] Urine protein/creatinine ratio [facility] Office Visiton 11-27-2024 Follow-up visit [id number] Kylah Robin 1945 F Date Provider Department Center 11/27/2024 [id number] YOON Family History Family history unknown: Yes Level of Service:97146 [place] OFFICE/OUTPATIENT ESTABLISHED MOD MDM 30 MIN Normal [facility] Glucose (Bld) [Mass/Vol]Orde red By: Maria Antonia Mo on 11-16-2024 Glucose Blood, POC 220 mg/dL [facility] - Hematology and Cell countson 11-16-2024 HbA1c (Bld) [Mass fraction] 7 % [facility] No Panel InformationOrdered By: Maria Antonia Mo on 11-16-2024 [facility] Glucose (Bld) [Mass/Vol]Orde red By: Maria Antonia Mo on 07-13-2024 Glucose Blood, POC 180 mg/dL [facility] No Panel Informationon 05-25 Type of [...] for: H&E Photo taken yes [facility] No Panel InformationOrdered By: Philomena Salter on 05-25-2024 [facility] Healthcare Office Visiton 05-11-2024 Follow-up visit [id number] Kylah Robin 1945 F Date Provider Department Center 05/11/2024 Yassine-STEFANO CATHERINE ANNIA [facility] No family history on file Level of Service:50565 [place] OFFICE/OUTPATIENT ESTABLISHED MOD MDM 30 MIN Normal [facility] POCT EKGon 01-17-2024 [facility] HEMOGRAM AND PLATELon 2022 Hematocrit (Bld) [Volume fraction] 28.8 % Critically low 36.0-48.0 [facility] Comment on above: Performed By: #### H H #### [facility] [address] [place] [address] Dr. Ember Teague Hemoglobin (Bld) [Mass/Vol] 9.6 g/dL Critically low 12.0-16.0 [facility] Comment on above: Performed By: #### H H #### [facility] [address] [address] [address] Ember Teague MCH (RBC) [Entitic mass] 30.7 pg Normal 26.7-34.0 [facility] Comment on above: Performed By: #### H H #### [facility] [address] [address] [address] Ember Teague MCHC (RBC) [Mass/Vol] 33.3 g/dL Normal 29.9-35.2 [facility] Comment on above: Performed By: #### H H #### [facility] [address] [address] [address] Ember Teague MCV (RBC) [Entitic vol] 92.0 fL Normal 81.0-99.0 [facility] Comment on above: Performed By: #### H H #### [facility] [address] [address] [address] Ember Teague PLT 214 103/ul Normal 150-450 [facility] Comment on above: Performed By: #### H H #### [facility] [address] [address] [address] Ember Teague RBC 3.13 106/ul Critically low 4.20-5.40 [facility] Comment on above: Performed By: #### H H #### [facility] [address] [place] [address] Dr. Ember Teague WBC 7.4 103/ul Normal 4.0-11.0 [facility] Comment on above: Performed By: #### H H #### [facility] [address] [place] [address] Dr. Ember Teague MAGNESIUMon 01-22-2023 Magnesium [Mass/Vol] 1.8 mg/dL Normal 1.8-2.4 [facility] Comment on above: Performed By: #### M G, RENAL #### [facility] [address] [place] [address] Dr. Ember Teague RENAL FUNCTION PANELon 01-22 Albumin [Mass/Vol] 3.6 g/dL Normal 3.4-5.0 [facility] Comment on above: Performed By: #### M G, RENAL #### [facility] [address] [place] [address] Dr. Ember Teague Calcium [Mass/Vol] 9.7 mg/dL Normal 8.5-10.1 [facility] Comment on above: Performed By: #### M G, RENAL #### [facility] [address] [place] [address] Dr. Ember Teague Chloride [Moles/Vol] 105 mmol/L Normal 98-107 [facility] Comment on above: Performed By: #### M G, RENAL #### [facility] [address] [address] [address] Ember Teague CO2 [Moles/Vol] 22.6 mmol/L Normal 21.0-32.0 [facility] Comment on above: Performed By: #### M G, RENAL #### [facility] [address] [address] [address] Ember Teague Creatinine [Mass/Vol] 2.18 mg/dL Critically high 0.55-1.02 [facility] Comment on above: Performed By: #### M G, RENAL #### [facility] [address] [address] [address] Ember Teague EGFR-AF AUSTRALIAN 26 mL/min/1.73m2 Critically low >=60 [facility] Comment on above: Performed By: #### M G, RENAL #### [facility] [address] [place] [address] Dr. Ember Teague EGFR-NON AF AUSTRALIAN 22 mL/min/1.73m2 Critically low >=60 [facility] Comment on above: Performed By: #### M G, RENAL #### [facility] [address] [address] [address] Ember Teague Glucose [Mass/Vol] 134 mg/dL Critically high 74-106 [facility] Comment on above: Performed By: #### M G, RENAL #### [facility] [address] [address] [address] Ember Teague Phosphate [Mass/Vol] 4.6 mg/dL Normal 2.6-4.7 [facility] Comment on above: Performed By: #### M G, RENAL #### [facility] [address] [address] [address] Ember Teague Potassium [Moles/Vol] 5.1 mmol/L Normal 3.5-5.1 [facility] Comment on above: Performed By: #### M G, RENAL #### [facility] [address] [address] [address] Ember Teague Sodium [Moles/Vol] 138 mmol/L Normal 136-145 [facility] Comment on above: Performed By: #### M G, RENAL #### [facility] [address] [place], [place] [address] Dr. Ember Teague Urea nitrogen [Mass/Vol] 61.0 mg/dL Critically high 7.0-18.0 [facility] Comment on above: Performed By: #### M G, RENAL #### [facility] [id number] Ember Teague MG MAMM SCREEN 3D MAY CADon 12-17-2022 MG MAMM SCREEN 3D MAY CAD Patient: KYLAH ROBIN Exam Date: 12/17/2022 : 1945 Gender:F Ordering : DR MERRICK RUBI . Admission #: [id number] Family : Order #: [id number] CLICK HERE TO VIEW EXAM RADIOLOGY REPORT [...] at age 61. LOCATION: [facility] BREAST COMPOSITION: Scattered areas fibroglandular density. [...] 12/17/2022 at 11:59 Normal [facility] FERRITINon 12-10-2022 Ferritin [Mass/Vol] 681.0 ng/mL Critically high 8.0-252.0 [facility] Comment on above: Performed By: #### P THINT #### [facility] [address] [place] [address] Dr. Ember Teague HEMOGRAM AND PLATELon 2022 Hematocrit (Bld) [Volume fraction] 27.1 % Critically low 36.0-48.0 [facility] Comment on above: Performed By: #### C VDTBH #### [facility] [address] [place] [address] Dr. Ember Teague Hemoglobin (Bld) [Mass/Vol] 9.7 g/dL Critically low 12.0-16.0 [facility] Comment on above: Performed By: #### C VDTBH #### [facility] [address] [place] [address] Dr. Ember Teague MCH (RBC) [Entitic mass] 31.4 pg Normal 26.7-34.0 [facility] Comment on above: Performed By: #### C VDTBH #### [facility] [address] [place] [address] Dr. Ember Teague MCHC (RBC) [Mass/Vol] 35.8 g/dL Critically high 29.9-35.2 [facility] Comment on above: Performed By: #### C VDTBH #### [facility] [address] [place] [address] Dr. Ember Teague MCV (RBC) [Entitic vol] 87.7 fL Normal 81.0-99.0 [facility] Comment on above: Performed By: #### C VDTBH #### [facility] [address] [place] [address] Dr. Ember Teague PLT 218 103/ul Normal 150-450 [facility] Comment on above: Performed By: #### C VDTBH #### [facility] [address] [place] [address] Dr. Ember Teague RBC 3.09 106/ul Critically low 4.20-5.40 [facility] Comment on above: Performed By: #### C VDTBH #### [facility] [address] [place] [address] Dr. Ember Teague WBC 6.6 103/ul Normal 4.0-11.0 [facility] Comment on above: Performed By: #### C VDTBH #### [facility] [address] [address] [address] Ember Teague IRON AND TIBCon 12-10-2022 % SATURATION 30.2 % Normal [facility] Comment on above: Performed By: #### P THINT #### [facility] [address] [place] [address] Dr. Ember Teague Iron [Mass/Vol] 84.0 ug/dL Normal 50.0-170.0 [facility] Comment on above: Performed By: #### P THINT #### [facility] [address] [place] [address] Dr. Ember Teague TIBC DIRECT 278.0 ug/dL Normal 250.0-450.0 [facility] Comment on above: Performed By: #### P THINT #### [facility] [address] [place] [address] Dr. Ember Teague XR FOOT MAY MIN [...] Date: 2022-11-20 14:03 Normal [facility] HEMOGRAM AND PLATELon 2022 Hematocrit (Bld) [Volume fraction] 27.7 % Critically low 36.0-48.0 [facility] Comment on above: Performed By: #### R ENAL #### [facility] [address] [place] [address] Dr. Ember Teague Hemoglobin (Bld) [Mass/Vol] 10.0 g/dL Critically low 12.0-16.0 [facility] Comment on above: Performed By: #### R ENAL #### [facility] [address] [place] [address] Dr. Ember Teague MCH (RBC) [Entitic mass] 31.6 pg Normal 26.7-34.0 [facility] Comment on above: Performed By: #### R ENAL #### [facility] [address] [place] [address] Dr. Ember Teague MCHC (RBC) [Mass/Vol] 36.1 g/dL Critically high 29.9-35.2 [facility] Comment on above: Performed By: #### R ENAL #### [facility] [address] [place] [address] Dr. Ember Teague MCV (RBC) [Entitic vol] 87.7 fL Normal 81.0-99.0 [facility] Comment on above: Performed By: #### R ENAL #### [facility] [address] [place] [address] Dr. Ember Teague PLT 182 103/ul Normal 150-450 [facility] Comment on above: Performed By: #### R ENAL #### [facility] [address] [place] [address] Dr. Ember Teague RBC 3.16 106/ul Critically low 4.20-5.40 [facility] Comment on above: Performed By: #### R ENAL #### [facility] [address] [place] [address] Dr. Ember Teague WBC 6.8 103/ul Normal 4.0-11.0 [facility] Comment on above: Performed By: #### R ENAL #### [facility] [address] [place] [address] Dr. Ember Teague PROF CHEM 8 (BAS METB)on Anion gap [Moles/Vol] 17.6 mmol/L Normal [facility] Comment on above: Performed By: #### C VDTBH #### [facility] [address] [address] [address] Ember Teague Calcium [Mass/Vol] 9.0 mg/dL Normal 8.5-10.1 [facility] Comment on above: Performed By: #### C VDTBH #### [facility] [address] [address] [address] Ember Teague Chloride [Moles/Vol] 104 mmol/L Normal 98-107 [facility] Comment on above: Performed By: #### C VDTBH #### [facility] [address] [place] [address] Dr. Ember Teague CO2 [Moles/Vol] 22.2 mmol/L Normal 21.0-32.0 [facility] Comment on above: Performed By: #### C VDTBH #### [facility] [address] [place] [address] Dr. Ember Teague Creatinine [Mass/Vol] 2.03 mg/dL Critically high 0.55-1.02 [facility] Comment on above: Performed By: #### C VDTBH #### [facility] [address] [place] [address] Dr. Ember Teague EGFR-AF AUSTRALIAN 29 mL/min/1.73m2 Critically low >=60 [facility] Comment on above: Performed By: #### C VDTBH #### [facility] [address] [place] [address] Dr. Ember Teague EGFR-NON AF AUSTRALIAN 24 mL/min/1.73m2 Critically low >=60 [facility] Comment on above: Performed By: #### C VDTBH #### [facility] [address] [place] [address] Dr. Ember Teague Glucose [Mass/Vol] 154 mg/dL Critically high 74-106 [facility] Comment on above: Performed By: #### C VDTBH #### [facility] [address] [place] [address] Dr. Ember Teague Potassium [Moles/Vol] 4.8 mmol/L Normal 3.5-5.1 [facility] Comment on above: Performed By: #### C VDTBH #### [facility] [address] [address] [address] Ember Teague Sodium [Moles/Vol] 139 mmol/L Normal 136-145 [facility] Comment on above: Performed By: #### C VDTBH #### [facility] [address] [address] [address] Ember Teague Urea nitrogen [Mass/Vol] 43.0 mg/dL Critically high 7.0-18.0 [facility] Comment on above: Performed By: #### C VDTBH #### [facility] [address] [address] [address] Ember Teague Urea nitrogen/Creatinine [Mass ratio] 21.2 mg/mg Normal [facility] Comment on above: Performed By: #### C VDTBH #### [facility] [address] [place] [address] Dr. Ember Teague CULTURE SPUTUMon 10-24-2022 CULTURE SPUTUM Culture Observations: Beta lactamase positive Isolate 1 Haemophilus influenzae Moderate growth of Normal [facility] Comment on above: Performed By: #### R ENAL #### [facility] [address] [address] [address] Ember Teague SPUTUM GRAM STAINon 10-24-19 23 COMMENTS Normal [facility] Comment on above: Performed By: #### R ENAL #### [facility] [address] [address] [address] Ember Teague DIPHTHEROIDS Normal [facility] Comment on above: Performed By: #### R ENAL #### [facility] [address] [address] [address] Ember Teague EPITHELIALS >25 Normal [facility] Comment on above: Performed By: #### R ENAL #### [facility] [address] [address] [address] Ember Teague FUNGAL ELEMENTS Normal [facility] Comment on above: Performed By: #### R ENAL #### [facility] [address] [address] [address] Ember Teague GRAM NEG BACILLI Normal [facility] Comment on above: Performed By: #### R ENAL #### [facility] [address] [address] [address] Ember Teague GRAM NEG DIPPLOCOCCI FEW Normal [facility] Comment on above: Performed By: #### R ENAL #### [facility] [address] [address] [address] Ember Teague GRAM POS BACILLI FEW Normal [facility] Comment on above: Performed By: #### R ENAL #### [facility] [address] [address] [address] Ember Teague GRAM POSITIVE COCCI MANY Normal [facility] Comment on above: Performed By: #### R ENAL #### [facility] [address] [address] [address] Ember Teague WBC (Bld) [#/Vol] 10*3/uL Normal [facility] Comment on above: Performed By: #### R ENAL #### [facility] [address] [address] [address] Ember Teague XR CHEST 2 Von [...] Date: 2022-10-24 16:22 Normal [facility] FERRITINon 09-18-2022 Ferritin [Mass/Vol] 612.0 ng/mL Critically high 8.0-252.0 [facility] Comment on above: Performed By: #### F ERR, FETIBC #### [facility] [address] [address] [address] Ember Teague HEMOGRAM AND PLATELon 2021 Hematocrit (Bld) [Volume fraction] 28.1 % Critically low 36.0-48.0 [facility] Comment on above: Performed By: #### C BC #### [facility] [address] [place] [address] Dr. Ember Teague Hemoglobin (Bld) [Mass/Vol] 9.7 g/dL Critically low 12.0-16.0 [facility] Comment on above: Performed By: #### C BC #### [facility] [address] [place] [address] Dr. Ember Teague MCH (RBC) [Entitic mass] 31.3 pg Normal 26.7-34.0 [facility] Comment on above: Performed By: #### C BC #### [facility] [address] [place] [address] Dr. Ember Teague MCHC (RBC) [Mass/Vol] 34.5 g/dL Normal 29.9-35.2 [facility] Comment on above: Performed By: #### C BC #### [facility] [address] [place] [address] Dr. Ember Teague MCV (RBC) [Entitic vol] 90.6 fL Normal 81.0-99.0 [facility] Comment on above: Performed By: #### C BC #### [facility] [address] [place] [address] Dr. Ember Teague PLT 183 103/ul Normal 150-450 [facility] Comment on above: Performed By: #### C BC #### [facility] [address] [place] [address] Dr. Ember Teague RBC 3.10 106/ul Critically low 4.20-5.40 [facility] Comment on above: Performed By: #### C BC #### [facility] [address] [place] [address] Dr. Ember Teague WBC 7.2 103/ul Normal 4.0-11.0 [facility] Comment on above: Performed By: #### C BC #### [facility] [address] [place] [address] Dr. Ember Teague IRON AND TIBCon 09-18-2022 % SATURATION 36.0 % Normal [facility] Comment on above: Performed By: #### F ERR, FETIBC #### [facility] [address] [address] [address] Ember Teague Iron [Mass/Vol] 77.0 ug/dL Normal 50.0-170.0 [facility] Comment on above: Performed By: #### F ERR, FETIBC #### [facility] [address] [place] [address] Dr. Ember Teague TIBC DIRECT 214.0 ug/dL Critically low 250.0-450.0 [facility] Comment on above: Performed By: #### F ERR, FETIBC #### [facility] [address] [place] [address] Dr. Ember Teague RENAL FUNCTION PANELon 09-18 Albumin [Mass/Vol] 3.7 g/dL Normal 3.4-5.0 [facility] Comment on above: Performed By: #### R ENAL #### [facility] [address] [place] [address] Dr. Ember Teague Calcium [Mass/Vol] 9.5 mg/dL Normal 8.5-10.1 [facility] Comment on above: Performed By: #### R ENAL #### [facility] [address] [place] [address] Dr. Ember Teague Chloride [Moles/Vol] 103 mmol/L Normal 98-107 [facility] Comment on above: Performed By: #### R ENAL #### [facility] [address] [place] [address] Dr. Ember Teague CO2 [Moles/Vol] 21.1 mmol/L Normal 21.0-32.0 [facility] Comment on above: Performed By: #### R ENAL #### [facility] [address] [place] [address] Dr. Ember Teague Creatinine [Mass/Vol] 1.85 mg/dL Critically high 0.55-1.02 [facility] Comment on above: Performed By: #### R ENAL #### [facility] [address] [place] [address] Dr. Ember Teague EGFR-AF AUSTRALIAN 32 mL/min/1.73m2 Critically low >=60 [facility] Comment on above: Performed By: #### R ENAL #### [facility] [address] [address] [address] Ember Teague EGFR-NON AF AUSTRALIAN 26 mL/min/1.73m2 Critically low >=60 [facility] Comment on above: Performed By: #### R ENAL #### [facility] [address] [address] [address] Ember Teague Glucose [Mass/Vol] 183 mg/dL Critically high 74-106 [facility] Comment on above: Performed By: #### R ENAL #### [facility] [address] [address] [address] Ember Teague Phosphate [Mass/Vol] 3.7 mg/dL Normal 2.6-4.7 [facility] Comment on above: Performed By: #### R ENAL #### [facility] [address] [address] [address] Ember Teague Potassium [Moles/Vol] 4.9 mmol/L Normal 3.5-5.1 [facility] Comment on above: Performed By: #### R ENAL #### [facility] [address] [place] [address] Dr. Ember Teague Sodium [Moles/Vol] 138 mmol/L Normal 136-145 [facility] Comment on above: Performed By: #### R ENAL #### [facility] [address] [address] [address] Ember Teague Urea nitrogen [Mass/Vol] 40.0 mg/dL Critically high 7.0-18.0 [facility] Comment on above: Performed By: #### R ENAL #### [facility] [address] [place] [address] Dr. Ember Teague CULTURE URINEon 09-15-2022 CULTURE [...] F Trimethoprim/Sulfam ethoxazole <=20 S F Normal [facility] Comment on above: Performed By: #### R ENAL #### [facility] [address] [place] [address] Dr. Ember Teague BNPon 09-11-2022 Natriuretic peptide B (Bld) [Mass/Vol] 408.0 pg/mL Normal <=1,800.0 [facility] Comment on above: Performed By: #### P THINT #### [facility] [address] [place] [address] Dr. Ember Teague CBC AUTO DIFFon 09-11-2022 BASO # 0.0 103/ul Normal 0.0-0.1 [facility] Comment on above: Performed By: #### C BC #### [facility] [address] [place] [address] Dr. Ember Teague Basophils/100 WBC (Bld) 0.3 % Normal 0.2-2.0 [facility] Comment on above: Performed By: #### C BC #### [facility] [address] [place] [address] Dr. Ember Teague EO # 0.1 103/ul Normal 0.0-0.7 [facility] Comment on above: Performed By: #### C BC #### [facility] [address] [place] [address] Dr. Ember Teague Eosinophils/100 WBC (Bld) 1.9 % Normal 0.9-7.0 [facility] Comment on above: Performed By: #### C BC #### [facility] [address] [place] [address] Dr. Ember Teague Erythrocyte distribution width (RBC) [Ratio] 15.2 % Critically high 11.0-15.0 [facility] Comment on above: Performed By: #### C BC #### [facility] [address] [address] [address] Ember Teague Hematocrit (Bld) [Volume fraction] 26.6 % Critically low 36.0-48.0 [facility] Comment on above: Performed By: #### C BC #### [facility] [address] [address] [address] Ember Teague Hemoglobin (Bld) [Mass/Vol] 9.0 g/dL Critically low 12.0-16.0 [facility] Comment on above: Performed By: #### C BC #### [facility] [address] [address] [address] Ember Teague IG # 0.02 10e3/ul Normal 0.00-0.03 [facility] Comment on above: Performed By: #### C BC #### [facility] [address] [address] [address] Ember Teague IG % 0.3 % Normal 0.0-0.5 [facility] Comment on above: Performed By: #### C BC #### [facility] [address] [address] [address] Ember Teague LYMPH # 1.9 103/ul Normal 1.2-3.8 [facility] Comment on above: Performed By: #### C BC #### [facility] [address] [address] [address] Ember Teague Lymphocytes/100 WBC (Bld) 32.4 % Normal 20.5-60.0 [facility] Comment on above: Performed By: #### C BC #### [facility] [address] [place] [address] Dr. Ember Teague MANUAL DIFF REQ NO Normal [facility] Comment on above: Performed By: #### C BC #### [facility] [address] [place] [address] Dr. Ember Teague MCH (RBC) [Entitic mass] 31.1 pg Normal 26.7-34.0 [facility] Comment on above: Performed By: #### C BC #### [facility] [address] [address] [address] Ember Teague MCHC (RBC) [Mass/Vol] 33.8 g/dL Normal 29.9-35.2 [facility] Comment on above: Performed By: #### C BC #### [facility] [address] [address] [address] Ember Teague MCV (RBC) [Entitic vol] 92.0 fL Normal 81.0-99.0 [facility] Comment on above: Performed By: #### C BC #### [facility] [address] [address] [address] Ember Teague MONO # 0.6 103/ul Normal 0.3-0.8 [facility] Comment on above: Performed By: #### C BC #### [facility] [address] [place] [address] Dr. Ember Teague Monocytes/100 WBC (Bld) 10.0 % Normal 1.7-12.0 [facility] Comment on above: Performed By: #### C BC #### [facility] [address] [place] [address] Dr. Ember Teague NEUT # 3.2 103/ul Normal 1.4-6.5 [facility] Comment on above: Performed By: #### C BC #### [facility] [address] [place] [address] Dr. Ember Teague Neutrophils/100 WBC (Bld) 55.1 % Normal 43.0-75.0 [facility] Comment on above: Performed By: #### C BC #### [facility] [address] [place] [address] Dr. Ember Teague Platelet mean volume (Bld) [Entitic vol] 9.4 fL Critically low 9.5-13.5 [facility] Comment on above: Performed By: #### C BC #### [facility] [address] [place] [address] Dr. Ember Teague PLT 196 103/ul Normal 150-450 [facility] Comment on above: Performed By: #### C BC #### [facility] [address] [place] [address] Dr. Ember Teague RBC 2.89 106/ul Critically low 4.20-5.40 [facility] Comment on above: Performed By: #### C BC #### [facility] [address] [place] [address] Dr. Ember Teague WBC 5.8 103/ul Normal 4.0-11.0 [facility] Comment on above: Performed By: #### C BC #### [facility] [address] [place] [address] Dr. Ember Teague PROF 14(COMP METB)on 022 Albumin [Mass/Vol] 3.7 g/dL Normal 3.4-5.0 [facility] Comment on above: Performed By: #### P THINT #### [facility] [address] [place] [address] Dr. Ember Teague Albumin/Globulin [Mass ratio] 1.0 {ratio} Normal [facility] Comment on above: Performed By: #### P THINT #### [facility] [address] [place] [address] Dr. Ember Teague ALP [Catalytic activity/Vol] 79 U/L Normal 46-116 [facility] Comment on above: Performed By: #### P THINT #### [facility] [address] [place] [address] Dr. Ember Teague ALT [Catalytic activity/Vol] 24 U/L Normal 14-59 [facility] Comment on above: Performed By: #### P THINT #### [facility] [address] [place] [address] Dr. Ember Teague Anion gap [Moles/Vol] 12.8 mmol/L Normal [facility] Comment on above: Performed By: #### P THINT #### [facility] [address] [place] [address] Dr. Ember Teague AST [Catalytic activity/Vol] 17 U/L Normal 15-37 [facility] Comment on above: Performed By: #### P THINT #### [facility] [address] [place] [address] Dr. Ember Teague Bilirubin [Mass/Vol] 0.5 mg/dL Normal 0.2-1.0 [facility] Comment on above: Performed By: #### P THINT #### [facility] [address] [address] [address] Ember Teague Calcium [Mass/Vol] 9.4 mg/dL Normal 8.5-10.1 [facility] Comment on above: Performed By: #### P THINT #### [facility] [address] [address] [address] Ember Teague Chloride [Moles/Vol] 101 mmol/L Normal 98-107 [facility] Comment on above: Performed By: #### P THINT #### [facility] [address] [address] [address] Ember Teague CO2 [Moles/Vol] 24.3 mmol/L Normal 21.0-32.0 [facility] Comment on above: Performed By: #### P THINT #### [facility] [address] [address] [address] Ember Teague Creatinine [Mass/Vol] 2.84 mg/dL Critically high 0.55-1.02 [facility] Comment on above: Performed By: #### P THINT #### [facility] [address] [place] [address] Dr. Ember Teague EGFR-AF AUSTRALIAN 20 mL/min/1.73m2 Critically low >=60 [facility] Comment on above: Performed By: #### P THINT #### [facility] [address] [address] [address] Ember Teague EGFR-NON AF AUSTRALIAN 16 mL/min/1.73m2 Critically low >=60 [facility] Comment on above: Performed By: #### P THINT #### [facility] [address] [address] [address] Ember Teague Globulin (S) [Mass/Vol] 3.7 g/dL Normal [facility] Comment on above: Performed By: #### P THINT #### [facility] [address] [address] [address] Ember Teague Glucose [Mass/Vol] 174 mg/dL Critically high 74-106 [facility] Comment on above: Performed By: #### P THINT #### [facility] [address] [address] [address] Ember Teague Potassium [Moles/Vol] 5.1 mmol/L Normal 3.5-5.1 [facility] Comment on above: Performed By: #### P THINT #### [facility] [address] [place] [address] Dr. Ember Teague Protein [Mass/Vol] 7.4 g/dL Normal 6.4-8.2 [facility] Comment on above: Performed By: #### P THINT #### [facility] [address] [place] [address] Dr. Ember Teague Sodium [Moles/Vol] 133 mmol/L Critically low 136-145 [facility] Comment on above: Performed By: #### P THINT #### [facility] [address] [place] [address] Dr. Ember Teague Urea nitrogen [Mass/Vol] 68.0 mg/dL Critically high 7.0-18.0 [facility] Comment on above: Performed By: #### P THINT #### [facility] [address] [place] [address] Dr. Ember Teague Urea nitrogen/Creatinine [Mass ratio] 23.9 mg/mg Normal [facility] Comment on above: Performed By: #### P THINT #### [facility] [address] [place] [address] Dr. Ember Teague TROPONIN, HIGH SENSITIVITYon 09-11-2022 HSTROP 9.1 pg/mL Normal 4.0-51.3 [facility] Comment on above: Result Comment: CUT- OFF POINTS HAVE BEEN ESTABLISHED BASED ON THE FOURTH UNIVERSAL DEFINITIONS OF MYOCARDIAL INFARCTION. THE UPPER REFERENCE LIMIT (URL) OF TROPONIN, DEFINED THE 99TH PERCENTILE OF cTnI DISTRIBUTION IN A REFERENCE POPULATION, HAS BEEN CONFIRMED THE DECISION THRESHOLD FOR WI DIAGNOSIS. Performed By: #### P THINT #### [facility] [address] [address] [address] Ember Teague UA RANDOM W/MICROSCOPICon BACTERIA NONE SEEN Normal NONE SEEN [facility] Comment on above: Performed By: #### C VDTBH #### [facility] [address] [place] [address] Dr. Ember Teague Bilirubin Ql (U) Negative Normal NEGATIVE [facility] Comment on above: Performed By: #### C VDTBH #### [facility] [address] [place] [address] Dr. Ember Teague CAST NONE SEEN Normal NONE SEEN [facility] Comment on above: Performed By: #### C VDTBH #### [facility] [address] [place] [address] Dr. Ember Teague Clarity (U) CLEAR Normal CLEAR [facility] Comment on above: Performed By: #### C VDTBH #### [facility] [address] [place] [address] Dr. Ember Teague Color (U) LT. YELLOW Normal YELLOW [facility] Comment on above: Performed By: #### C VDTBH #### [facility] [address] [place] [address] Dr. Ember Teague Crystals LM Nom (Urine sed) NONE SEEN Normal NONE SEEN [facility] Comment on above: Performed By: #### C VDTBH #### [facility] [address] [place] [address] Dr. Ember Teague Epithelial cells LM Ql (Urine sed) FEW Abnormal NONE SEEN /RARE [facility] Comment on above: Performed By: #### C VDTBH #### [facility] [address] [place] [address] Dr. Ember Teague Glucose Ql (U) Negative Normal NEGATIVE [facility] Comment on above: Performed By: #### C VDTBH #### [facility] [address] [place] [address] Dr. Ember Teague Hemoglobin Ql (U) Negative Normal NEGATIVE [facility] Comment on above: Performed By: #### C VDTBH #### [facility] [address] [place] [address] Dr. Ember Teague Ketones Ql (U) Negative Normal NEGATIVE [facility] Comment on above: Performed By: #### C VDTBH #### [facility] [address] [place] [address] Dr. Ember Teague LEUKOCYTES Negative Normal NEGATIVE [facility] Comment on above: Performed By: #### C VDTBH #### [facility] [address] [place] [address] Dr. Ember Teague MUCOUS NONE SEEN Normal NONE SEEN [facility] Comment on above: Performed By: #### C VDTBH #### [facility] [address] [place] [address] Dr. Ember Teague Nitrite Ql (U) Negative Normal NEGATIVE [facility] Comment on above: Performed By: #### C VDTBH #### [facility] [address] [place] [address] Dr. Ember Teague pH (U) 5.5 [pH] Normal 5-9 [facility] Comment on above: Performed By: #### C VDTBH #### [facility] [address] [place] [address] Dr. Ember Teague RBC NONE SEEN Abnormal 0-2 [facility] Comment on above: Performed By: #### C VDTBH #### [facility] [address] [place] [address] Dr. Ember Teague SPEC GRAVITY 1.010 Normal 1.005-<=1.025 [facility] Comment on above: Performed By: #### C VDTBH #### [facility] [address] [place] [address] Dr. Ember Teague UA PROTEIN Negative Normal NEGATIVE/ TRACE [facility] Comment on above: Performed By: #### C VDTBH #### [facility] [address] [place] [address] Dr. Ember Teague Urobilinogen Qn (U) 0.2 {Esau'U}/dL Normal 0.2 - 1. 0 [facility] Comment on above: Performed By: #### C VDTBH #### [facility] [address] [place] [address] Dr. Ember Teague WBC NONE SEEN Normal NONE SEEN [facility] Comment on above: Performed By: #### C VDTB #### [facility] [address] [place] [address] Dr. Ember Teague CBC AUTO DIFFon 08-13-2022 BASO # 0.0 103/ul Normal 0.0-0.1 [facility] Comment on above: Performed By: #### C BC #### [facility] [address] [place] [address] Dr. Ember Teague Basophils/100 WBC (Bld) 0.3 % Normal 0.2-2.0 [facility] Comment on above: Performed By: #### C BC #### [facility] [address] [place] [address] Dr. Ember Teague EO # 0.2 103/ul Normal 0.0-0.7 [facility] Comment on above: Performed By: #### C BC #### [facility] [address] [place] [address] Dr. Ember Teague Eosinophils/100 WBC (Bld) 3.7 % Normal 0.9-7.0 [facility] Comment on above: Performed By: #### C BC #### [facility] [address] [place] [address] Dr. Ember Teague Erythrocyte distribution width (RBC) [Ratio] 15.0 % Normal 11.0-15.0 [facility] Comment on above: Performed By: #### C BC #### [facility] [address] [place] [address] Dr. Ember Teague Hematocrit (Bld) [Volume fraction] 27.9 % Critically low 36.0-48.0 [facility] Comment on above: Performed By: #### C BC #### [facility] Laboratory [address] [place] [address] Dr. Ember Teague Hemoglobin (Bld) [Mass/Vol] 9.7 g/dL Critically low 12.0-16.0 [facility] Comment on above: Performed By: #### C BC #### [facility] Laboratory [address] [place] [address] Dr. Ember Teague IG # 0.01 10e3/ul Normal 0.00-0.03 [facility] Comment on above: Performed By: #### C BC #### [facility] [address] [place] [address] Dr. Ember Teague IG % 0.2 % Normal 0.0-0.5 [facility] Comment on above: Performed By: #### C BC #### [facility] [address] [place] [address] Dr. Ember Teague LYMPH # 1.9 103/ul Normal 1.2-3.8 [facility] Comment on above: Performed By: #### C BC #### [facility] [address] [place] [address] Dr. Ember Teague Lymphocytes/100 WBC (Bld) 32.2 % Normal 20.5-60.0 [facility] Comment on above: Performed By: #### C BC #### [facility] [address] [place] [address] Dr. Ember Teague MANUAL DIFF REQ NO Normal [facility] Comment on above: Performed By: #### C BC #### [facility] [address] [place] [address] Dr. Ember Teague MCH (RBC) [Entitic mass] 31.4 pg Normal 26.7-34.0 [facility] Comment on above: Performed By: #### C BC #### [facility] [address] [place] [address] Dr. Ember Teague MCHC (RBC) [Mass/Vol] 34.8 g/dL Normal 29.9-35.2 [facility] Comment on above: Performed By: #### C BC #### [facility] [address] [place] [address] Dr. Ember Teague MCV (RBC) [Entitic vol] 90.3 fL Normal 81.0-99.0 [facility] Comment on above: Performed By: #### C BC #### [facility] [address] [place] [address] Dr. Ember Teague MONO # 0.6 103/ul Normal 0.3-0.8 [facility] Comment on above: Performed By: #### C BC #### [facility] [address] [place] [address] Dr. Ember Teague Monocytes/100 WBC (Bld) 9.8 % Normal 1.7-12.0 [facility] Comment on above: Performed By: #### C BC #### [facility] [address] [place] [address] Dr. Ember Teague NEUT # 3.2 103/ul Normal 1.4-6.5 [facility] Comment on above: Performed By: #### C BC #### [facility] [address] [place] [address] Dr. Ember Teague Neutrophils/100 WBC (Bld) 53.8 % Normal 43.0-75.0 [facility] Comment on above: Performed By: #### C BC #### [facility] [address] [place] [address] Dr. Ember Teague Platelet mean volume (Bld) [Entitic vol] 10.0 fL Normal 9.5-13.5 [facility] Comment on above: Performed By: #### C BC #### [facility] [address] [place] [address] Dr. Ember Teague PLT 194 103/ul Normal 150-450 [facility] Comment on above: Performed By: #### C BC #### [facility] [address] [place] [address] Dr. Ember Teague RBC 3.09 106/ul Critically low 4.20-5.40 [facility] Comment on above: Performed By: #### C BC #### [facility] [address] [place] [address] Dr. Ember Teague WBC 6.0 103/ul Normal 4.0-11.0 [facility] Comment on above: Performed By: #### C BC #### [facility] [address] [place] [address] Dr. Ember Teague PTH INTACTon 06-26-2022 PTH, Intact 39 pg/mL Normal 15-65 [facility] Comment on above: Performed By: #### P THINT #### [facility] [address] [place] [address] Dr. Ember Teague CBC AUTO DIFFon 06-25-2022 BASO # 0.1 103/ul Normal 0.0-0.1 [facility] Comment on above: Performed By: #### C VDTBH #### [facility] [address] [place] [address] Dr. Ember Teague Basophils/100 WBC (Bld) 0.6 % Normal 0.2-2.0 [facility] Comment on above: Performed By: #### C VDTBH #### [facility] [address] [place] [address] Dr. Ember Teague EO # 0.2 103/ul Normal 0.0-0.7 [facility] Comment on above: Performed By: #### C VDTBH #### [facility] [address] [place] [address] Dr. Ember Teague Eosinophils/100 WBC (Bld) 3.0 % Normal 0.9-7.0 [facility] Comment on above: Performed By: #### C VDTBH #### [facility] [address] [place] [address] Dr. Ember Teague Erythrocyte distribution width (RBC) [Ratio] 14.2 % Normal 11.0-15.0 [facility] Comment on above: Performed By: #### C VDTBH #### [facility] [address] [place] [address] Dr. Ember Teague Hematocrit (Bld) [Volume fraction] 30.9 % Critically low 36.0-48.0 [facility] Comment on above: Performed By: #### C VDTBH #### [facility] [address] [place] [address] Dr. Ember Teague Hemoglobin (Bld) [Mass/Vol] 10.6 g/dL Critically low 12.0-16.0 [facility] Comment on above: Performed By: #### C VDTBH #### [facility] [address] [address] [address] Ember Teague IG # 0.04 10e3/ul Critically high 0.00-0.03 [facility] Comment on above: Performed By: #### C VDTBH #### [facility] [address] [address] [address] Ember Teague IG % 0.5 % Normal 0.0-0.5 [facility] Comment on above: Performed By: #### C VDTBH #### [facility] [address] [address] [address] Ember Teague LYMPH # 2.2 103/ul Normal 1.2-3.8 [facility] Comment on above: Performed By: #### C VDTBH #### [facility] [address] [place] [address] Dr. Ember Teague Lymphocytes/100 WBC (Bld) 27.0 % Normal 20.5-60.0 [facility] Comment on above: Performed By: #### C VDTBH #### [facility] [address] [place] [address] Dr. Ember Teague MANUAL DIFF REQ NO Normal [facility] Comment on above: Performed By: #### C VDTBH #### [facility] [address] [place] [address] Dr. Ember Teague MCH (RBC) [Entitic mass] 31.2 pg Normal 26.7-34.0 [facility] Comment on above: Performed By: #### C VDTBH #### [facility] [address] [place] [address] Dr. Ember Teague MCHC (RBC) [Mass/Vol] 34.3 g/dL Normal 29.9-35.2 [facility] Comment on above: Performed By: #### C VDTBH #### [facility] [address] [place] [address] Dr. Ember Teague MCV (RBC) [Entitic vol] 90.9 fL Normal 81.0-99.0 [facility] Comment on above: Performed By: #### C VDTBH #### [facility] [address] [address] [address] Ember Teague MONO # 0.7 103/ul Normal 0.3-0.8 [facility] Comment on above: Performed By: #### C VDTBH #### [facility] [address] [address] [address] Ember Teague Monocytes/100 WBC (Bld) 9.2 % Normal 1.7-12.0 [facility] Comment on above: Performed By: #### C VDTBH #### [facility] [address] [address] [address] Ember Teague NEUT # 4.8 103/ul Normal 1.4-6.5 [facility] Comment on above: Performed By: #### C VDTBH #### [facility] [address] [place] [address] Dr. Ember Teague Neutrophils/100 WBC (Bld) 59.7 % Normal 43.0-75.0 [facility] Comment on above: Performed By: #### C VDTB #### [facility] [address] [place] [address] Dr. Ember Teague Platelet mean volume (Bld) [Entitic vol] 9.3 fL Critically low 9.5-13.5 [facility] Comment on above: Performed By: #### C VDTBH #### [facility] [address] [place] [address] Dr. Ember Teague PLT 227 103/ul Normal 150-450 [facility] Comment on above: Performed By: #### C VDTBH #### [facility] [address] [place] [address] Dr. Ember Teague RBC 3.40 106/ul Critically low 4.20-5.40 [facility] Comment on above: Performed By: #### C VDTBH #### [facility] [address] [place] [address] Dr. Ember Teague WBC 8.0 103/ul Normal 4.0-11.0 [facility] Comment on above: Performed By: #### C VDTBH #### [facility] [address] [address] [address] Ember Teague MRI LSPINE WO CONon [...] Date: 2022-06-25 08:45 Normal [facility] RENAL FUNCTION PANELon 06-25 Albumin [Mass/Vol] 3.9 g/dL Normal 3.4-5.0 [facility] Comment on above: Performed By: #### P THINT #### [facility] [address] [address] [address] Ember Teague Calcium [Mass/Vol] 9.5 mg/dL Normal 8.5-10.1 [facility] Comment on above: Performed By: #### P THINT #### [facility] [address] [address] [address] Ebmer Teague Chloride [Moles/Vol] 102 mmol/L Normal 98-107 [facility] Comment on above: Performed By: #### P THINT #### [facility] [address] [address] [address] Ember Teague CO2 [Moles/Vol] 23.8 mmol/L Normal 21.0-32.0 [facility] Comment on above: Performed By: #### P THINT #### [facility] [address] [address] [address] Ember Teague Creatinine [Mass/Vol] 1.75 mg/dL Critically high 0.55-1.02 [facility] Comment on above: Performed By: #### P THINT #### [facility] [address] [address] [address] Ember Teague EGFR-AF AUSTRALIAN 34 mL/min/1.73m2 Critically low >=60 [facility] Comment on above: Performed By: #### P THINT #### [facility] [address] [place] [address] Dr. Ember Teague EGFR-NON AF AUSTRALIAN 28 mL/min/1.73m2 Critically low >=60 [facility] Comment on above: Performed By: #### P THINT #### [facility] [address] [address] [address] Ember Teague Glucose [Mass/Vol] 199 mg/dL Critically high 74-106 [facility] Comment on above: Performed By: #### P THINT #### [facility] [address] [address] [address] Ember Teague Phosphate [Mass/Vol] 4.3 mg/dL Normal 2.6-4.7 [facility] Comment on above: Performed By: #### P THINT #### [facility] [address] [address] [address] Ember Teague Potassium [Moles/Vol] 4.9 mmol/L Normal 3.5-5.1 [facility] Comment on above: Performed By: #### P THINT #### [facility] [address] [place] [address] Dr. Ember Teague Sodium [Moles/Vol] 135 mmol/L Critically low 136-145 Th e [facility] Comment on above: Performed By: #### P THINT #### [facility] [address] [place] [address] Dr. Ember Teague Urea nitrogen [Mass/Vol] 34.0 mg/dL Critically high 7.0-18.0 [facility] Comment on above: Performed By: #### P THINT #### [facility] [address] [place] [address] Dr. Ember Teague VITAMIN D 25 OHon 06-25-2022 VIT D 25-OH 40.6 ng/mL Normal [facility] Comment on above: Performed By: #### P THINT #### [facility] [address] [place] [address] Dr. Ember Teague VIT D RANGES SEE BELOW Normal [facility] Comment on above: Result Comment: <20 ng/mL Vit D deficient 20 - <30 ng/mL Vit D insufficient 30 - 100 ng/mL Vit D sufficient >100 ng/mL Potential Toxicity Performed By: #### P THINT #### [facility] [address] [place] [address] Dr. Ember Teague Covid-19 PCR (CVDTB)on 06-07 SARS-CoV-2 (COVID-19) RNA ALEXX+probe Ql (Unsp spec) Not detected Normal NOT DETECTED [facility] Comment on above: Result Comment: This test is not yet approved or cleared by the [place] FDA. When there are no FDA-approved or cleared tests available, and other criteria are met, FDA can make tests available under an emergency access mechanism called an Emergency Use Authorization (EUA). The EUA for this test is supported by the University of Health and Human Service's (HHS's) declaration [...] consistent with SARS-CoV-2. Performed By: #### C [facility] #### [facility] [address] [place] [address] LSPINE WO CONon [...] YANET HUERTA Date: 2022-06-01 18:02 Normal The [facility] XR [...] YANET HUERTA Date: 2022-05-21 15:25 Normal The [facility] PTH INTACTon 05-03-2022 PTH, Intact 60 pg/mL Normal 15-65 [facility] Comment on above: Performed By: #### C VDTBH #### [facility] [address] [address] [address] Ember Teague VIT D 25-OH LABCORPon 2021 Vitamin D, 25-Hydroxy 26.1 ng/mL Critically low 30.0-100.0 [facility] Comment on above: Result Comment: Sara min D deficiency has been defined by the [place] [employer] and an Endocrine Society practice guideline as a level of serum 25-OH vitamin D less than 20 ng/mL (1,2). The Endocrine Society went on to further define vitamin D insufficiency as a level between 21 and 29 ng/mL (2). 1. IOM ([place] of [employer]). 2010. Dietary reference intakes for calcium and D. [place]: The National Academies Press. 2. Sherice MF, Wendy NC, Huan ZHONG, et al. Evaluation, treatment, and prevention of vitamin D deficiency: an Endocrine Society clinical practice guideline. JCEM. 2010; 96(7):1911-30. Performed By: #### R ENAL #### [facility] [address] [address] [address] Ember Teague FERRITINon 05-02-2022 Ferritin [Mass/Vol] 590.0 ng/mL Critically high 8.0-252.0 [facility] Comment on above: Performed By: #### R ENAL #### [facility] [address] [place] [address] Dr. Ember Teague HEMOGRAM AND PLATELon 2021 Hematocrit (Bld) [Volume fraction] 28.4 % Critically low 36.0-48.0 [facility] Comment on above: Performed By: #### C VDTBH #### [facility] [address] [place] [address] Dr. Ember Teague Hemoglobin (Bld) [Mass/Vol] 9.6 g/dL Critically low 12.0-16.0 [facility] Comment on above: Performed By: #### C VDTBH #### [facility] [address] [place] [address] Dr. Ember Teague MCH (RBC) [Entitic mass] 31.0 pg Normal 26.7-34.0 [facility] Comment on above: Performed By: #### C VDTBH #### [facility] [address] [place] [address] Dr. Ember Teague MCHC (RBC) [Mass/Vol] 33.8 g/dL Normal 29.9-35.2 [facility] Comment on above: Performed By: #### C VDTBH #### [facility] [address] [place] [address] Dr. Ember Teague MCV (RBC) [Entitic vol] 91.6 fL Normal 81.0-99.0 [facility] Comment on above: Performed By: #### C VDTBH #### [facility] [address] [place] [address] Dr. Ember Teague PLT 189 103/ul Normal 150-450 [facility] Comment on above: Performed By: #### C VDTBH #### [facility] [address] [place] [address] Dr. Ember Teague RBC 3.10 106/ul Critically low 4.20-5.40 [facility] Comment on above: Performed By: #### C VDTBH #### [facility] [address] [place] [address] Dr. Ember Teague WBC 6.2 103/ul Normal 4.0-11.0 [facility] Comment on above: Performed By: #### C VDTBH #### [facility] [address] [place] [address] Dr. Ember Teague IRON AND TIBCon 05-02-2022 % SATURATION 34.3 % Normal [facility] Comment on above: Performed By: #### R ENAL #### [facility] [address] [place] [address] Dr. Ember Teague Iron [Mass/Vol] 69.0 ug/dL Normal 50.0-170.0 [facility] Comment on above: Performed By: #### R ENAL #### [facility] [address] [place] [address] Dr. Ember Teague TIBC DIRECT 201.0 ug/dL Critically low 250.0-450.0 [facility] Comment on above: Performed By: #### R ENAL #### [facility] [address] [place] [address] Dr. Ember Teague MAGNESIUMon 05-02-2022 Magnesium [Mass/Vol] 1.7 mg/dL Critically low 1.8-2.4 [facility] Comment on above: Performed By: #### C VDTBH #### [facility] [address] [place] [address] Dr. Ember Teague RENAL FUNCTION PANELon 05-02 Albumin [Mass/Vol] 3.6 g/dL Normal 3.4-5.0 [facility] Comment on above: Performed By: #### C VDTBH #### [facility] [address] [place] [address] Dr. Ember Teague Calcium [Mass/Vol] 9.2 mg/dL Normal 8.5-10.1 [facility] Comment on above: Performed By: #### C VDTBH #### [facility] [address] [place] [address] Dr. Ember Teague Chloride [Moles/Vol] 107 mmol/L Normal 98-107 [facility] Comment on above: Performed By: #### C VDTBH #### [facility] [address] [address] [address] Ember Teague CO2 [Moles/Vol] 21.2 mmol/L Normal 21.0-32.0 [facility] Comment on above: Performed By: #### C VDTBH #### [facility] [address] [address] [address] Ember Teague Creatinine [Mass/Vol] 1.75 mg/dL Critically high 0.55-1.02 [facility] Comment on above: Performed By: #### C VDTBH #### [facility] [address] [address] [address] Ember Teague EGFR-AF AUSTRALIAN 34 mL/min/1.73m2 Critically low >=60 [facility] Comment on above: Performed By: #### C VDTBH #### [facility] [address] [place] [address] Dr. Ember Teague EGFR-NON AF AUSTRALIAN 28 mL/min/1.73m2 Critically low >=60 [facility] Comment on above: Performed By: #### C VDTBH #### [facility] [address] [address] [address] Ember Teague Glucose [Mass/Vol] 193 mg/dL Critically high 74-106 [facility] Comment on above: Performed By: #### C VDTBH #### [facility] [address] [place] [address] Dr. Ember Teague Phosphate [Mass/Vol] 4.2 mg/dL Normal 2.6-4.7 [facility] Comment on above: Performed By: #### C VDTBH #### [facility] [address] [address] [address] Ember Teague Potassium [Moles/Vol] 5.1 mmol/L Normal 3.5-5.1 [facility] Comment on above: Performed By: #### C VDTBH #### [facility] [address] [address] [address] Ember Teague Sodium [Moles/Vol] 139 mmol/L Normal 136-145 [facility] Comment on above: Performed By: #### C VDTBH #### [facility] [address] [place] [address] Dr. Ember Teague Urea nitrogen [Mass/Vol] 34.0 mg/dL Critically high 7.0-18.0 [facility] Comment on above: Performed By: #### C VDTBH #### [facility] [address] [place] [address] Dr. Ember Teague UA RANDOM W/MICROSCOPICon BACTERIA SMALL Abnormal NONE SEEN [facility] Comment on above: Performed By: #### C VDTBH #### [facility] [address] [place] [address] Dr. Ember Teague Bilirubin Ql (U) Negative Normal NEGATIVE [facility] Comment on above: Performed By: #### C VDTBH #### [facility] [address] [place] [address] Dr. Ember Teague CAST NONE SEEN Normal NONE SEEN [facility] Comment on above: Performed By: #### C VDTBH #### [facility] [address] [place] [address] Dr. Ember Teague Clarity (U) CLEAR Normal CLEAR [facility] Comment on above: Performed By: #### C VDTBH #### [facility] [address] [place] [address] Dr. Ember Teague Color (U) LT. YELLOW Normal YELLOW [facility] Comment on above: Performed By: #### C VDTBH #### [facility] [address] [place] [address] Dr. Ember Teague Crystals LM Nom (Urine sed) NONE SEEN Normal NONE SEEN [facility] Comment on above: Performed By: #### C VDTBH #### [facility] [address] [place] [address] Dr. Ember Teague Epithelial cells LM Ql (Urine sed) MODERATE Abnormal NONE SEEN /RARE [facility] Comment on above: Performed By: #### C VDTBH #### [facility] [address] [place] [address] Dr. Ember Teague Glucose Ql (U) Negative Normal NEGATIVE [facility] Comment on above: Performed By: #### C VDTBH #### [facility] [address] [place] [address] Dr. Ember Teague Hemoglobin Ql (U) Negative Normal NEGATIVE [facility] Comment on above: Performed By: #### C VDTBH #### [facility] [address] [place] [address] Dr. Ember Teague Ketones Ql (U) Negative Normal NEGATIVE [facility] Comment on above: Performed By: #### C VDTBH #### [facility] [address] [place] [address] Dr. Ember Teague LEUKOCYTES TRACE Abnormal NEGATIVE [facility] Comment on above: Performed By: #### C VDTBH #### [facility] [address] [place] [address] Dr. Ember Teague MUCOUS NONE SEEN Normal NONE SEEN [facility] Comment on above: Performed By: #### C VDTBH #### [facility] [address] [place] [address] Dr. Ember Teague Nitrite Ql (U) Negative Normal NEGATIVE [facility] Comment on above: Performed By: #### C VDTBH #### [facility] [address] [place] [address] Dr. Ember Teague pH (U) 5.0 [pH] Normal 5-9 [facility] Comment on above: Performed By: #### C VDTBH #### [facility] [address] [place] [address] Dr. Ember Teague RBC NONE SEEN Abnormal 0-2 [facility] Comment on above: Performed By: #### C VDTBH #### [facility] [address] [place] [address] Dr. Ember Teague SPEC GRAVITY 1.015 Normal 1.005-<=1.025 [facility] Comment on above: Performed By: #### C VDTBH #### [facility] [address] [place] [address] Dr. Ember Teague UA PROTEIN TRACE Normal NEGATIVE/ TRACE [facility] Comment on above: Performed By: #### C VDTBH #### [facility] [address] [place] [address] Dr. Ember Teague Urobilinogen Qn (U) 0.2 {Esau'U}/dL Normal 0.2 - 1. 0 [facility] Comment on above: Performed By: #### C VDTBH #### [facility] [address] [place] [address] Dr. Ember Teague WBC 0-2 Abnormal NONE SEEN The [facility] Comment on above: Performed By: #### C VDTBH #### [facility] [address] [place] [address] Dr. Ember Teague URIC ACID SERUMon 05-02-2022 Urate [Mass/Vol] 4.4 mg/dL Normal 2.6-6.0 [facility] Comment on above: Performed By: #### C #### [facility] [address] [place] [address] Dr. Ember Teague URINE T PROTEIN CREAT RATIOo n 05-02-2022 Protein (U) [Mass/Vol] 33.7 mg/dL Critically high <=12.0 [facility] Comment on above: Performed By: #### C VDTBH #### [facility] [address] [place] [address] Dr. Ember Teague UR PROT CREAT RAT 0.69 Normal [facility] Comment on above: Performed By: #### C VDTBH #### [facility] [address] [place] [address] Dr. Ember Teague URINE CREAT 48.93 mg/dL Normal 20.00-300.00 [facility] Comment on above: Performed By: #### C VDTBH #### [facility] [address] [place] [address] Dr. Ember Teague Vital Signs Date Time Vital Sign Value Performing Clinician Facility 02-15-2025 09:51-0400 Body height 168.9 cm Lorraine Mayer MD Work Phone: [facility] 02-15-2025 09:51-0400 Body mass index (BMI) [Ratio] 31 kg/m2 Lorraine Mayer MD Work Phone: [facility] 02-15-2025 09:51-0400 Body weight 88.45 kg Lorraine Mayer MD Work Phone: [facility] 02-15-2025 09:51-0400 Diastolic blood pressure 62 mm[Hg] Lorraine Mayer MD Work Phone: [facility] 02-15-2025 09:51-0400 Heart rate 63 /min Lorraine Mayer MD Work Phone: [facility] 02-15-2025 09:51-0400 Respiratory rate 16 /min Lorraine Mayer MD Work Phone: [facility] 02-15-2025 09:51-0400 SaO2% (BldA) [Mass fraction] 97 % Lorraine Mayer MD Work Phone: [facility] 02-15-2025 09:51-0400 Systolic blood pressure 132 mm[Hg] Lorraine Mayer MD Work Phone: [facility] 01-14-2025 09:15-0400 Body height 168.91 cm [facility] 01-14-2025 09:15-0400 Body mass index (BMI) [Ratio] 30.8 kg/m2 [facility] 01-14-2025 09:15-0400 Body temperature 98.2 [degF] [facility] 01-14-2025 09:15-0400 Body weight 88.05 kg [facility] 01-14-2025 09:15-0400 Diastolic blood pressure 58 mm[Hg] [facility] 01-14-2025 09:15-0400 Heart rate 65 /min [facility] 01-14-2025 09:15-0400 Respiratory rate 16 /min [facility] 01-14-2025 09:15-0400 SaO2% (BldA) [Mass fraction] 98 % [facility] 01-14-2025 09:15-0400 Systolic blood pressure 128 mm[Hg] [facility] 11-16-2024 09:49-0500 Body height 168.9 cm Lorraine Mayer MD Work Phone: [facility] 11-16-2024 09:49-0500 Body mass index (BMI) [Ratio] 30.53 kg/m2 Lorraine Mayer MD Work Phone: [facility] 11-16-2024 09:49-0500 Body weight 87.09 kg Lorraine Mayer MD Work Phone: [facility] 11-16-2024 09:49-0500 Diastolic blood pressure 80 mm[Hg] Lorraine Mayer MD Work Phone: [facility] 11-16-2024 09:49-0500 Heart rate 62 /min Lorraine Mayer MD Work Phone: [facility] 11-16-2024 09:49-0500 Respiratory rate 16 /min Lorraine Mayer MD Work Phone: [facility] 11-16-2024 09:49-0500 SaO2% (BldA) [Mass fraction] 97 % Lorraine Mayer MD Work Phone: [facility] 11-16-2024 09:49-0500 Systolic blood pressure 130 mm[Hg] Lorraine Mayer MD Work Phone: [facility] 01-17-2024 12:56-0400 Body height 168.9 cm Thuan Lucas MD Work Phone: [facility] 01-17-2024 12:56-0400 Body mass index (BMI) [Ratio] 30.05 kg/m2 Thuan Lucas MD Work Phone: [facility] 01-17-2024 12:56-0400 Body weight 85.73 kg Thuan Lucas MD Work Phone: [facility] 01-17-2024 12:56-0400 Diastolic blood pressure 70 mm[Hg] Thuan Lucas MD Work Phone: [facility] 01-17-2024 12:56-0400 Heart rate 60 /min Thuan Lucas MD Work Phone: [facility] 01-17-2024 12:56-0400 SaO2% (BldA) [Mass fraction] 98 % Thuan Lucas MD Work Phone: [facility] 01-17-2024 12:56-0400 Systolic blood pressure 180 mm[Hg] Thuan Lucas MD Work Phone: [facility] 11-18-2023 10:00-0500 Body height 168.91 cm Ron Doreen Other [facility] Other 11-18-2023 10:00-0500 Body mass index (BMI) [Ratio] 29.85 kg/m2 Ron Doreen Other [facility] Other 11-18-2023 10:00-0500 Body temperature 97.3 [degF] Ron Doreen Other [facility] Other 11-18-2023 10:00-0500 Body weight 85.19 kg Ron Doreen Other [facility] Other 11-18-2023 10:00-0500 Diastolic blood pressure 79 mm[Hg] Ron Doreen Other [facility] Other 11-18-2023 10:00-0500 Respiratory rate 18 /min Ron Doreen Other [facility] Other 11-18-2023 10:00-0500 SaO2% (BldA) [Mass fraction] 98 % Ron Doreen Other [facility] Other 11-18-2023 10:00-0500 Systolic blood pressure 149 mm[Hg] Ron Doreen Other [facility] Other 11-04-2023 11:00-0500 Body height 168.91 cm Ron Doreen Other [facility] Other 11-04-2023 11:00-0500 Body mass index (BMI) [Ratio] 30.17 kg/m2 Ron Doreen Other [facility] Other 11-04-2023 11:00-0500 Body temperature 97.6 [degF] Ron Doreen Other [facility] Other 11-04-2023 11:00-0500 Body weight 86.09 kg Ron Doreen Other [facility] Other 11-04-2023 11:00-0500 Diastolic blood pressure 76 mm[Hg] Ron Doreen Other [facility] Other 11-04-2023 11:00-0500 Respiratory rate 18 /min Ron Doreen Other [facility] Other 11-04-2023 11:00-0500 SaO2% (BldA) [Mass fraction] 98 % Ron Doreen Other [facility] Other 11-04-2023 11:00-0500 Systolic blood pressure 153 mm[Hg] Ron Doreen Other [facility] Other 10-15-2023 13:00-0500 Body height 168.91 cm Ron Doreen Other [facility] Other 10-15-2023 13:00-0500 Body mass index (BMI) [Ratio] 29.82 kg/m2 Ron Doreen Other [facility] Other 10-15-2023 13:00-0500 Body temperature 97.5 [degF] Ron Doreen Other [facility] Other 10-15-2023 13:00-0500 Body weight 85.1 kg Ron Doreen Other [facility] Other 10-15-2023 13:00-0500 Diastolic blood pressure 68 mm[Hg] Ron Doreen Other [facility] Other 10-15-2023 13:00-0500 Respiratory rate 18 /min Ron Doreen Other [facility] Other 10-15-2023 13:00-0500 SaO2% (BldA) [Mass fraction] 98 % Ron Doreen Other [facility] Other 10-15-2023 13:00-0500 Systolic blood pressure 113 mm[Hg] Ron Doreen Other [facility] Other 08-27-2023 09:40-0500 Body height 168.91 cm [employer] Other [facility] Other 08-27-2023 09:40-0500 Body mass index (BMI) [Ratio] 30.2 kg/m2 [employer] Other [facility] Other 08-27-2023 09:40-0500 Body temperature 96.7 [degF] [employer] Other [facility] Other 08-27-2023 09:40-0500 Body weight 86.18 kg [employer] Mensah[employer] Other [facility] Other 08-27-2023 09:40-0500 Diastolic blood pressure 72 mm[Hg] [employer] Mens[employer] Other [facility] Other 08-27-2023 09:40-0500 Respiratory rate 18 /min Mary Anne Mensahs Other [facility] Other 08-27-2023 09:40-0500 SaO2% (BldA) [Mass fraction] 98 % Mary Anne Mensahs Other [facility] Other 08-27-2023 09:40-0500 Systolic blood pressure 153 mm[Hg] Mary Anne Mensahs Other [facility] Other 08-15-2023 10:20-0500 Body height 168.91 cm Ron Doreen Other [facility] Other 08-15-2023 10:20-0500 Body mass index (BMI) [Ratio] 30.2 kg/m2 Ron Doreen Other [facility] Other 08-15-2023 10:20-0500 Body temperature 97.1 [degF] Ron Doreen Other [facility] Other 08-15-2023 10:20-0500 Body weight 86.18 kg Ron Doreen Other [facility] Other 08-15-2023 10:20-0500 Diastolic blood pressure 79 mm[Hg] Ron Doreen Other [facility] Other 08-15-2023 10:20-0500 Respiratory rate 18 /min Ron Doreen Other [facility] Other 08-15-2023 10:20-0500 SaO2% (BldA) [Mass fraction] 98 % Ron Doreen Other [facility] Other 08-15-2023 10:20-0500 Systolic blood pressure 164 mm[Hg] Ron Doreen Other [facility] Other 08-13-2023 15:40-0500 Body height 168.91 cm Ron Doreen Other [facility] Other 08-13-2023 15:40-0500 Body mass index (BMI) [Ratio] 30.24 kg/m2 Ron Doreen Other [facility] Other 08-13-2023 15:40-0500 Body temperature 97.2 [degF] Ron Doreen Other [facility] Other 08-13-2023 15:40-0500 Body weight 86.27 kg Ron Doreen Other [facility] Other 08-13-2023 15:40-0500 Diastolic blood pressure 79 mm[Hg] Ron Doreen Other [facility] Other 08-13-2023 15:40-0500 Respiratory rate 18 /min Ron Doreen Other [facility] Other 08-13-2023 15:40-0500 SaO2% (BldA) [Mass fraction] 98 % Ron Doreen Other [facility] Other 08-13-2023 15:40-0500 Systolic blood pressure 186 mm[Hg] Ron Doreen Other [facility] Other 08-01-2023 13:00-0400 Body height 168.91 cm Ron Doreen Other [facility] Other 08-01-2023 13:00-0400 Body mass index (BMI) [Ratio] 30.55 kg/m2 Ron Doreen Other [facility] Other 08-01-2023 13:00-0400 Body temperature 97.8 [degF] Ron Doreen Other [facility] Other 08-01-2023 13:00-0400 Body weight 87.18 kg Ron Doreen Other [facility] Other 08-01-2023 13:00-0400 Diastolic blood pressure 72 mm[Hg] Ron Doreen Other [facility] Other 08-01-2023 13:00-0400 Respiratory rate 18 /min Ron Doreen Other [facility] Other 08-01-2023 13:00-0400 SaO2% (BldA) [Mass fraction] 98 % Ron Doreen Other [facility] Other 08-01-2023 13:00-0400 Systolic blood pressure 160 mm[Hg] Ron Doreen Other [facility] Other 06-24-2023 11:40-0400 Body height 168.91 cm Ron Doreen Other [facility] Other 06-24-2023 11:40-0400 Body mass index (BMI) [Ratio] 29.89 kg/m2 Ron Doreen Other [facility] Other 06-24-2023 11:40-0400 Body temperature 97.3 [degF] Ron Doreen Other [facility] Other 06-24-2023 11:40-0400 Body weight 85.28 kg Ron Doreen Other [facility] Other 06-24-2023 11:40-0400 Diastolic blood pressure 75 mm[Hg] Ron Doreen Other [facility] Other 06-24-2023 11:40-0400 Respiratory rate 18 /min Ron Doreen Other [facility] Other 06-24-2023 11:40-0400 SaO2% (BldA) [Mass fraction] 99 % Ron Doreen Other [facility] Other 06-24-2023 11:40-0400 Systolic blood pressure 129 mm[Hg] Ron Doreen Other [facility] Other 06-06-2023 15:20-0400 Body height 168.91 cm Ron Doreen Other [facility] Other 06-06-2023 15:20-0400 Body mass index (BMI) [Ratio] 29.92 kg/m2 Ron Doreen Other [facility] Other 06-06-2023 15:20-0400 Body temperature 96.5 [degF] Ron Doreen Other [facility] Other 06-06-2023 15:20-0400 Body weight 85.37 kg Ron Doreen Other [facility] Other 06-06-2023 15:20-0400 Diastolic blood pressure 49 mm[Hg] Ron Doreen Other [facility] Other 06-06-2023 15:20-0400 Respiratory rate 18 /min Ron Doreen Other [facility] Other 06-06-2023 15:20-0400 SaO2% (BldA) [Mass fraction] 99 % Ron Doreen Other [facility] Other 06-06-2023 15:20-0400 Systolic blood pressure 128 mm[Hg] Ron Doreen Other [facility] Other 04-30-2023 11:40-0400 Body height 168.91 cm Ron Doreen Other [facility] Other 04-30-2023 11:40-0400 Body mass index (BMI) [Ratio] 30.52 kg/m2 Ron Doreen Other [facility] Other 04-30-2023 11:40-0400 Body temperature 96.9 [degF] Ron Doreen Other [facility] Other 04-30-2023 11:40-0400 Body weight 87.09 kg Ron Doreen Other [facility] Other 04-30-2023 11:40-0400 Diastolic blood pressure 80 mm[Hg] Ron Doreen Other [facility] Other 04-30-2023 11:40-0400 Respiratory rate 18 /min Ron Doreen Other [facility] Other 04-30-2023 11:40-0400 SaO2% (BldA) [Mass fraction] 98 % Ron Doreen Other [facility] Other 04-30-2023 11:40-0400 Systolic blood pressure 150 mm[Hg] Ron Doreen Other [facility] Other 04-06-2023 09:00-0400 Body height 168.91 cm Ron Doreen Other [facility] Other 04-06-2023 09:00-0400 Body mass index (BMI) [Ratio] 30.36 kg/m2 Ron Doreen Other [facility] Other 04-06-2023 09:00-0400 Body weight 86.64 kg Ron Doreen Other [facility] Other 04-06-2023 09:00-0400 Diastolic blood pressure 54 mm[Hg] Ron Doreen Other [facility] Other 04-06-2023 09:00-0400 Respiratory rate 18 /min Ron Doreen Other [facility] Other 04-06-2023 09:00-0400 SaO2% (BldA) [Mass fraction] 98 % Ron Doreen Other [facility] Other 04-06-2023 09:00-0400 Systolic blood pressure 144 mm[Hg] Ron Doreen Other [facility] Other 04-02-2023 14:40-0400 Body height 168.91 cm Ron Doreen Other [facility] Other 04-02-2023 14:40-0400 Body mass index (BMI) [Ratio] 30.55 kg/m2 Ron Doreen Other [facility] Other 04-02-2023 14:40-0400 Body temperature 97 [degF] Ron Doreen Other [facility] Other 04-02-2023 14:40-0400 Body weight 87.18 kg Ron Doreen Other [facility] Other 04-02-2023 14:40-0400 Diastolic blood pressure 76 mm[Hg] Ron Doreen Other [facility] Other 04-02-2023 14:40-0400 Respiratory rate 18 /min Ron Doreen Other [facility] Other 04-02-2023 14:40-0400 SaO2% (BldA) [Mass fraction] 98 % Ron Doreen Other [facility] Other 04-02-2023 14:40-0400 Systolic blood pressure 183 mm[Hg] Ron Doreen Other [facility] Other 03-07-2023 09:20-0400 Body height 168.91 cm Ron Doreen Other [facility] Other 03-07-2023 09:20-0400 Body mass index (BMI) [Ratio] 30.52 kg/m2 Ron Doreen Other [facility] Other 03-07-2023 09:20-0400 Body temperature 97.1 [degF] Ron Doreen Other [facility] Other 03-07-2023 09:20-0400 Body weight 87.09 kg Ron Doreen Other [facility] Other 03-07-2023 09:20-0400 Diastolic blood pressure 72 mm[Hg] Ron Doreen Other [facility] Other 03-07-2023 09:20-0400 Respiratory rate 18 /min Ron Doreen Other [facility] Other 03-07-2023 09:20-0400 SaO2% (BldA) [Mass fraction] 97 % Ron Doreen Other [facility] Other 03-07-2023 09:20-0400 Systolic blood pressure 130 mm[Hg] Ron Doreen Other [facility] Other 12-20-2022 13:20-0400 Body height 168.91 cm Ron Doreen Other [facility] Other 12-20-2022 13:20-0400 Body mass index (BMI) [Ratio] 30.68 kg/m2 Ron Doreen Other [facility] Other 12-20-2022 13:20-0400 Body temperature 97.1 [degF] Ron Doreen Other [facility] Other 12-20-2022 13:20-0400 Body weight 87.54 kg Ron Doreen Other [facility] Other 12-20-2022 13:20-0400 Diastolic blood pressure 72 mm[Hg] Ron Doreen Other [facility] Other 12-20-2022 13:20-0400 Respiratory rate 18 /min Ron Doreen Other [facility] Other 12-20-2022 13:20-0400 SaO2% (BldA) [Mass fraction] 99 % Ron Doreen Other [facility] Other 12-20-2022 13:20-0400 Systolic blood pressure 139 mm[Hg] Ron Doreen Other [facility] Other 11-05-2022 14:00-0500 Body height 168.91 cm Ron Doreen Other [facility] Other 11-05-2022 14:00-0500 Body mass index (BMI) [Ratio] 30.59 kg/m2 Ron Doreen Other [facility] Other 11-05-2022 14:00-0500 Body temperature 96.8 [degF] Ron Doreen Other [facility] Other 11-05-2022 14:00-0500 Body weight 87.27 kg Ron Doreen Other [facility] Other 11-05-2022 14:00-0500 Diastolic blood pressure 72 mm[Hg] Ron Doreen Other [facility] Other 11-05-2022 14:00-0500 Respiratory rate 18 /min Ron Doreen Other [facility] Other 11-05-2022 14:00-0500 SaO2% (BldA) [Mass fraction] 98 % Ron Doreen Other [facility] Other 11-05-2022 14:00-0500 Systolic blood pressure 157 mm[Hg] Ron Doreen Other [facility] Other 09-27-2022 16:00-0500 Body height 168.91 cm Jana Monson Other [facility] Other 09-27-2022 16:00-0500 Body mass index (BMI) [Ratio] 30.55 kg/m2 Jana Monson Other [facility] Other 09-27-2022 16:00-0500 Body temperature 96.8 [degF] Jana Monson Other [facility] Other 09-27-2022 16:00-0500 Body weight 87.18 kg Jana Monson Other [facility] Other 09-27-2022 16:00-0500 Diastolic blood pressure 73 mm[Hg] Jana Monson Other [facility] Other 09-27-2022 16:00-0500 Respiratory rate 18 /min Jana Monson Other [facility] Other 09-27-2022 16:00-0500 SaO2% (BldA) [Mass fraction] 98 % Jana Monson Other [facility] Other 09-27-2022 16:00-0500 Systolic blood pressure 159 mm[Hg] Jana Monson Other [facility] Other 08-22-2022 12:00-0500 Body height 168.91 cm Ron Doreen Other [facility] Other 08-22-2022 12:00-0500 Body mass index (BMI) [Ratio] 30.65 kg/m2 Ron Doreen Other [facility] Other 08-22-2022 12:00-0500 Body temperature 96.9 [degF] Ron Doreen Other [facility] Other 08-22-2022 12:00-0500 Body weight 87.45 kg Ron Doreen Other [facility] Other 08-22-2022 12:00-0500 Diastolic blood pressure 75 mm[Hg] Ron Doreen Other [facility] Other 08-22-2022 12:00-0500 Respiratory rate 18 /min Ron Doreen Other [facility] Other 08-22-2022 12:00-0500 SaO2% (BldA) [Mass fraction] 96 % Ron Doreen Other [facility] Other 08-22-2022 12:00-0500 Systolic blood pressure 121 mm[Hg] Ron Doreen Other [facility] Other 05-08-2022 10:20-0400 Body height 168.91 cm Ron Doreen Other [facility] Other 05-08-2022 10:20-0400 Body mass index (BMI) [Ratio] 31.54 kg/m2 Ron Doreen Other [facility] Other 05-08-2022 10:20-0400 Body temperature 97.6 [degF] Ron Doreen Other [facility] Other 05-08-2022 10:20-0400 Body weight 89.99 kg Ron Doreen Other [facility] Other 05-08-2022 10:20-0400 Diastolic blood pressure 68 mm[Hg] Ron Doreen Other [facility] Other 05-08-2022 10:20-0400 Respiratory rate 18 /min Ron Doreen Other [facility] Other 05-08-2022 10:20-0400 SaO2% (BldA) [Mass fraction] 98 % Ron Doreen Other [facility] Other 05-08-2022 10:20-0400 Systolic blood pressure 131 mm[Hg] Ron Doreen Other [facility] Other 01-18-2022 10:20-0400 Body height 168.91 cm Ron Doreen Other [facility] Other 01-18-2022 10:20-0400 Body mass index (BMI) [Ratio] 31 kg/m2 Ron Doreen Other [facility] Other 01-18-2022 10:20-0400 Body temperature 96.4 [degF] Ron Doreen Other [facility] Other 01-18-2022 10:20-0400 Body weight 88.45 kg Ron Doreen Other [facility] Other 01-18-2022 10:20-0400 Diastolic blood pressure 74 mm[Hg] Ron Doreen Other [facility] Other 01-18-2022 10:20-0400 Respiratory rate 18 /min Ron Doreen Other [facility] Other 01-18-2022 10:20-0400 SaO2% (BldA) [Mass fraction] 97 % Ron Doreen Other [facility] Other 01-18-2022 10:20-0400 Systolic blood pressure 170 mm[Hg] Ron Doreen Other [facility] Other Encounters Encounter Date Encounter Type Care Provider Facility Start: 03-23-2025 End: 03-23-2025 Office outpatient visit 15 minutes Greg Tineo MD Work Phone: [facility] Comment on above: Seborrheic keratosis (Primary Dx); Seborrheic keratosis, inflamed; Solar purpura; Lentigines Start: 03-23-2025 End: 03-23-2025 ambulatory GREG TINEO Not Available Start: 03-23-2025 End: 03-23-2025 Parmjit Tineo MD Work Phone: [facility] Start: 03-23-2025 End: 03-23-2025 Bamzoraidao cornelio Tineo MD Work Phone: [facility] Start: 03-07-2025 End: 03-12-2025 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 Start: 02-15-2025 End: 02-15-2025 Bamboo cornelio Mayer MD Work Phone: [facility] Start: 02-15-2025 End: 02-15-2025 Office outpatient visit 25 minutes Lorraine Mayer MD Work Phone: [facility] Comment on above: Type 2 diabetes diony itus with hyperglycemia, with long-term 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 (CMS/[facility]) (Primary Dx); Vitamin D deficiency; Microalbuminuria; Hyperlipemia, mixed (CMS/HCC); Primary hypertension (CMS/HCC); Insulin long-term use (CMS/HCC); 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CMS/HCC); Encounter for dietary consultation; Chronic renal disease, stage IV (CMS/HCC) Start: 02-15-2025 End: 02-15-2025 ambulatory LORRAINE MAYER Not Available Start: 01-14-2025 End: 01-14-2025 ambulatory [facility] Work Phone: Start: 01-14-2025 End: 01-14-2025 Patient encounter procedure [facility] Eliel Work Phone: Start: 01-05-2025 Non-patient / Non-visit [facility] Work Phone: Start: 12-21-2024 End: 12-21-2024 Telephone encounter Cary Goldman CMA [facility] Start: 12-12-2024 End: 2024 Refill Cristina Salamanca MVA OPERATOR-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 Start: 11-16-2024 End: 11-16-2024 Bamboo flowsviry Mayer MD Work Phone: [facility] Start: 11-16-2024 End: 11-16-2024 Bamboelan Mayer MD Work Phone: [facility] Start: 11-16-2024 End: 11-16-2024 Office outpatient visit 25 minutes Lorraine Mayer MD Work Phone: [facility] Comment on above: Type 2 diabetes diony itus with hyperglycemia, with long-term 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 ([facility]) (Primary Dx); Vitamin D deficiency; Microalbuminuria; Hyperlipemia, mixed ([facility]); Primary hypertension ([facility]/HCC); Insulin long-term use ([facility]/HCC); 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[facility]); Encounter for dietary consultation; Chronic renal disease, stage IV ([facility]) Start: 11-16-2024 End: 11-16-2024 ambulatory LORRAINE MAYER Not Available Start: 09-28-2024 End: 09-28-2024 Bamboo flowsheet Ga Lai DPM Work Phone: [facility] Start: 09-28-2024 End: 09-28-2024 Bamboo flowsheet Ga Lai DPM Work Phone: [facility] Start: 09-28-2024 End: 09-28-2024 Patient encounter procedure Ga Lai DPM Work Phone: [facility] Comment on above: Onychomycosis (Prima ry Dx); Pain in both feet; Corns and callosities; Type 2 diabetes mellitus without complication, with long-term 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 (CMS/HCC) Start: 09-28-2024 End: 09-28-2024 ambulatory GA LAI Not Available Start: 09-05-2024 End: 09-11-2024 Refill Marie Garcia APRN-PACKING MACHINE FEEDER Work Phone: [facility] Comment on above: Med Refill Start: 07-13-2024 End: 07-13-2024 Bamboo flowsviry Mayer MD Work Phone: [facility] Start: 07-13-2024 End: 07-13-2024 Bamboo flowsviry Mayer MD Work Phone: [facility] Start: 07-13-2024 End: 07-13-2024 Office outpatient visit 25 minutes Lorraine Mayer MD Work Phone: [facility] Comment on above: Type [...] Bamboo flowsheet Ga Lai DPM Work Phone: [facility] Start: 06-25-2024 End: 06-25-2024 Bamboo flowsheet Ga Lai DPM Work Phone: [facility] Start: 06-25-2024 End: 06-25-2024 Patient encounter procedure Ga Lai DPM Work Phone: [facility] Comment on above: Onychomycosis (Prima ry Dx); Pain in both feet; Corns and callosities; Type 2 diabetes mellitus without complication, with long-term 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 ([facility]) Start: 06-25-2024 End: 06-25-2024 ambulatory GA LAI Not Available Start: 06-04-2024 End: 06-04-2024 Bamboo flowsheet Greg Tineo MD Work Phone: [facility] Start: 06-04-2024 End: 06-04-2024 Parmjit Tineo MD Work Phone: [facility] Start: 06-04-2024 End: 06-04-2024 Office outpatient visit 15 minutes Greg Tineo MD Work Phone: [facility] Comment on above: Granuloma annulare ( Primary Dx) Start: 06-04-2024 End: 06-04-2024 ambulatory GREG A PETITTI Not Available Start: 05-25-2024 End: 05-25-2024 Patient encounter procedure Greg Tineo MD Work Phone: [facility] Comment on above: Rash and other nonsp ecific skin eruption (Primary Dx) Start: 05-25-2024 End: 05-25-2024 ambulatory GREG A PETITTI Not Available Start: 05-11-2024 End: 05-11-2024 ambulatory E[facility] Start: 04-21-2024 End: 04-21-2024 ambulatory GREG A PETITTI Not Available Start: 04-16-2024 End: 04-16-2024 ambulatory GA LAI Not Available Start: 03-18-2024 End: 03-23-2024 Refsalma Garcia MVA OPERATOR-PACKING MACHINE FEEDER Work Phone: [facility] Comment on above: Med Refill Start: 01-17-2024 End: 01-17-2024 ambulatory THUAN LUCAS 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 ([facility]); Other forms of angina pectoris ([facility]); Essential hypertension; Atherosclerosis of wrangell coronary artery 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 angina pectoris; H/O four vessel coronary artery bypass graft; Hypertensive urgency; Shortness of breath; Localized edema Start: 01-16-2024 End: 01-16-2024 Telephone encounter Cary Goldman CMA [facility] Start: 12-21-2023 Refill Luis dominique PA-C Work Phone: [facility] Comment on above: Med Refill Start: 11-18-2023 End: 11-18-2023 ambulatory Ron Doreen Other [facility] Other Start: 11-18-2023 Office outpatient vi sit 15 minutes Ron Doreen [facility] Start: 11-04-2023 (INJECTION) INJECTION Ron Doeren [facility] Start: 11-04-2023 End: 11-04-2023 ambulatory Ron Doreen Other [facility] Other Start: 10-15-2023 End: 10-15-2023 ambulatory Ron Doreen Other [facility] Other Start: 10-15-2023 Office outpatient vi sit 15 minutes Ron Doreen [facility] Start: 10-08-2023 End: 10-08-2023 ambulatory Mary Anne Mensahs Other [facility] Other Start: 10-08-2023 Telephone encounter Aziz Bakhous [facility] Start: 09-15-2023 End: 09-15-2023 ambulatory Ron Doreen Other [facility] Other Start: 09-15-2023 Telephone encounter Ron Doreen [facility] Start: 09-09-2023 End: 09-09-2023 ambulatory Ron Doreen Other [facility] Other Start: 09-09-2023 Telephone encounter Ron Doreen [facility] Start: 08-27-2023 (INJECTION) INJECTION Aziz Bakhous [facility] Start: 08-27-2023 End: 08-27-2023 ambulatory Aziz Bakhous Other [facility] Other Start: 08-15-2023 (INJECTION) INJECTION Ron Doreen [facility] Start: 08-15-2023 End: 08-15-2023 ambulatory Ron Doreen Other [facility] Other Start: 08-13-2023 (INJECTION) INJECTION Ron Doreen [facility] Start: 08-13-2023 End: 08-13-2023 ambulatory Ron Doreen Other [facility] Other Start: 08-01-2023 End: 08-01-2023 ambulatory Ron Doreen Other [facility] Other Start: 08-01-2023 Office outpatient vi sit 15 minutes Ron Doreen [facility] Start: 06-24-2023 End: 06-24-2023 ambulatory Ron Doeren Other [facility] Other Start: 06-24-2023 Office outpatient vi sit 10 minutes Ron Doreen [facility] Start: 06-06-2023 End: 06-06-2023 ambulatory Ron Doreen Other [facility] Other Start: 06-06-2023 Office outpatient vi sit 15 minutes Ron Doreen [facility] Start: 04-30-2023 End: 04-30-2023 ambulatory Ron Doreen Other [facility] Other Start: 04-30-2023 Office outpatient vi sit 15 minutes Ron Doreen [facility] Start: 04-06-2023 (INJECTION) INJECTION Ron Doreen [facility] Start: 04-06-2023 End: 04-06-2023 ambulatory Ron Doreen Other [facility] Other Start: 04-06-2023 Telephone encounter Ron Doreen [facility] Start: 04-02-2023 End: 04-02-2023 ambulatory Ron Doreen Other [facility] Other Start: 04-02-2023 Office outpatient vi sit 15 minutes Ron Doreen [facility] Start: 04-02-2023 Telephone encounter Ron Doreen [facility] Start: 03-07-2023 End: 03-07-2023 ambulatory Ron Doreen Other [facility] Other Start: 03-07-2023 Office outpatient vi sit 15 minutes Ron Doreen [facility] Start: 01-22-2023 End: 01-23-2023 ambulatory RON DOREEN Facility:[facility] Start: 12-20-2022 End: 12-20-2022 ambulatory Ron Doreen Other [facility] Other Start: 12-20-2022 Office outpatient vi sit 15 minutes Ron Doreen [facility] Start: 12-17-2022 End: 12-18-[address] MERRICK RUBI . Facility:[facility] Start: 12-10-2022 End: 12-11-2022 ambulatory RON DOREEN Facility:[facility] Start: 11-20-2022 End: 11-21-[address] BENI APARICIO Facility:[facility] Start: 11-05-2022 End: 11-05-2022 ambulatory Ron Doreen Other [facility] Other Start: 11-05-2022 Office outpatient vi sit 15 minutes Ron Doreen [facility] Start: 10-29-2022 End: 10-30-[address] JANA MONSON Facility:[facility] Start: 10-24-2022 End: 10-24-[address] LILLIAN ACOSTA . Facility:[facility] Start: 10-24-2022 End: 10-25-[address] MERRICK RUBI . Facility:[facility] Start: 09-27-2022 End: 09-27-2022 ambulatory Jana Monson Other [facility] Other Start: 09-27-2022 Office outpatient vi sit 15 minutes Jana Monson [facility] Start: 09-18-2022 End: 09-19-2022 ambulatory RON DOREEN Facility:[facility] Start: 09-11-2022 End: 09-11-[address] MERRICK RUBI . Facility:[facility] Start: 08-22-2022 End: 08-22-2022 ambulatory Ron Doreen Other [facility] Other Start: 08-22-2022 Office outpatient vi sit 15 minutes Ron Doreen [facility] Start: 08-13-2022 End: 08-14-2022 ambulatory RON DOREEN Facility:[facility] Start: 06-25-2022 End: 06-26-[address] MERRICK RUBI . Facility:[facility] Start: 06-18-2022 End: 06-18-[address] MERRICK RUBI . Facility:[facility] Start: 06-01-2022 End: 06-02-[address] YANET HUERTA Facility:[facility] Start: 05-28-2022 End: 05-28-2022 ambulatory Ron Doreen Other [facility] Other Start: 05-28-2022 Telephone encounter Ron Doreen [facility] Start: 05-21-2022 End: 05-22-[address] MERRICK RUBI . Facility:[facility] Start: 05-16-2022 End: 05-16-2022 ambulatory Ron Doreen Other [facility] Other Start: 05-16-2022 Telephone encounter Ron Doreen [facility] Start: 05-10-2022 End: 05-10-2022 ambulatory Ron Doreen Other [facility] Other Start: 05-10-2022 Telephone encounter Ron Doreen [facility] Start: 05-08-2022 End: 05-08-2022 ambulatory Ron Doreen Other [facility] Other Start: 05-08-2022 Office outpatient vi sit 25 minutes Ron Doreen [facility] Start: 05-02-2022 End: 05-03-2022 ambulatory RON DOREEN Facility:[facility] Start: 04-24-2022 End: 04-24-2022 ambulatory Aziz Bakhous Other [facility] Other Start: 04-24-2022 Telephone encounter Aziz Bakhous [facility] Start: 01-18-2022 End: 01-18-2022 ambulatory Ron Doreen Other [facility] Other Start: 01-18-2022 Office outpatient vi sit 25 minutes Ron Doreen [facility] Start: 05-21-2017 End: 05-22-2017 Ambulatory DEFAULT PHYSICIAN Facility:[facility] Procedures Date Procedure Procedure Detail Performing Clinician Start: 03-23-2025 CRYOTHERAPY SKIN LESION Greg Tineo MD Work Phone: Start: 02-15-2025 Gluc bld gluc mntr d ev cleared fda spec home use Lorraine Mayer MD Work Phone: Start: 11-16-2024 Gluc bld gluc mntr d [...] four vessel coronary artery bypass graft Luis MCDOWELLC Work Phone: History of coronary artery bypass grafting H/O four vessel coronary artery bypass graft Sarthak Rueda MD Work Phone: History of coronary artery bypass grafting H/O four vessel coronary artery bypass graft Marck Lazo MVA OPERATOR-PACKING MACHINE FEEDER Work Phone: History of coronary artery bypass grafting H/O four vessel coronary artery bypass graft Marie Garcia MVA OPERATOR-PACKING MACHINE FEEDER Work Phone: Plan of Treatment Date Care Activity Detail Author Start: 03-23-2026 End: 03-23-2026 Patient encounter procedure 03/23/2026 10:00 AM EDT Office Visit [facility] [address] [place] [address] Greg Tineo MD [address] [place] [address] [facility] Start: 06-14-2025 End: 06-14-2025 Patient encounter procedure 06/14/2025 10:10 AM EDT Office [address] [facility] [address] [place] [address] Lorraine Mayer MD [address] [place] [address] [facility] Start: 06-07-2025 Influenza vaccination [facility] Start: 03-23-2025 End: 03-23-2025 Patient encounter procedure 03/23/2025 2:30 PM EDT Office Visit [facility] [address] [place] [address] Greg Tineo MD [address] [place] [address] [facility] Comment on above: Arrived Start: 03-16-2025 End: 03-16-2025 Patient encounter procedure 03/16/2025 8:35 AM EDT Office Visit [facility] [address] [place] [address] Greg Tineo MD [address] [place] [address] [facility] Start: 02-15-2025 End: 02-15-[address] [facility] Comment on above: Type 2 diabetes mellitus with hyperglyce constance, with long-term 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 ([facility]) Start: 01-16-2025 Adult BMI Screening Adult BMI Screening [facility] Start: 01-16-2025 Tobacco Screening Tobacco Screening [facility] Start: 12-31-2024 End: 12-31-2024 Patient encounter procedure 12/31/2024 10:15 AM EDT Procedure Visit [facility] [address] [place] [address] Ga Lai DPM [address] [place] [address] [facility] Start: 11-16-2024 End: 11-16-[address] [facility] Comment on above: Type 2 diabetes mellitus with hyperglyce constance, with long-term 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 ([facility]) Start: 09-28-2024 End: 09-28-2024 Patient encounter procedure [facility] Comment on above: Arrived Start: 07-13-2024 End: 07-13-[address] [facility] Comment on above: Type 2 diabetes mellitus with hyperglyce constance, with long-term 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 ([facility]) Start: 06-25-2024 End: 06-25-2024 Patient encounter procedure [facility] Comment on above: Arrived Start: 06-07-2024 COVID-19 Vaccine ( season) COVID-19 Vaccine () [facility] Start: 06-07-2024 Influenza vaccination [facility] Start: 06-04-2024 End: 06-04-2024 Patient encounter procedure [facility] Comment on above: Arrived Start: 03-19-2024 Adult BMI Screening Adult BMI Screening [facility] Start: 03-19-2024 Tobacco Screening Tobacco Screening [facility] Start: 02-21-2024 End: 02-21-2024 Patient encounter procedure 02/21/2024 2:00 PM EDT Office Visit [facility] [address] [place] [address] Thuan Lucas MD [address] [place] [address] [facility] Start: 01-24-2024 End: 01-16-2025 Basic metabolic 2000 panel - Serum or Plasma Basic Metabolic Panel Lab Routine Stage 4 chronic kidney disease ([facility]) Essential hypertension Expected: 01/24/2024 (Approximate), Expires: 01/16/2025 [facility] Work Phone: Comment on above: Expected: 01/24/2024 (Approximate), Expi res: 01/16/2025 Start: 01-24-2024 End: 01-24-2024 Clinical Support 01/24/2024 10:30 AM EDT Clinical Support [facility] [address] [place] [address] [facility] Start: 01-17-2024 End: 01-17-2024 Patient encounter procedure 01/17/2024 1:00 PM EDT Office Visit [facility] [address] [place] [id number] Sarthak Rueda MD [address] [place], [place] [id number] Thuan Lucas MD [address] [place] [address] [facility] Start: 06-07-2023 COVID-19 Vaccine ( season) COVID-19 Vaccine ( season) [facility] Start: 06-07-2023 Influenza vaccination Influenza Vaccine [facility] Start: 12-28-2021 Depression Screening Depression Screening [facility] Start: 2009 Fall Risk Screening Fall Risk Screening [facility] Start: 1994 Administration of varicella zoster vaccine Zoster (Shingles) Vaccine (1 of 2) [facility] Start: 12-15-1963 DTaP,Tdap and Td Vaccines (1 - Tdap) DTaP,Tdap and Td Vaccines (1 - Tdap) [facility] Start: 1962 Adult BMI Follow Up Plan Adult BMI Follow Up Plan [facility] Start: 1956 Depression Screening Depression Screening [facility] Start: 1944 Medicare Annual Wellness Visit Medicare Annual Wellness Visit [facility] Dermatopathology exam Dermatopat hology exam Pathology and Cytology Timed Rash and other nonspecific skin eruption Release Upon Ordering for 1 Occurrences starting 05/25/2024 [facility] Work Phone: Comment on above: Release Upon Ordering for 1 Occurrences starting 05/25/2024 End: 12-12-2025 Lipid panel Lipid panel Lab Routine Medication management 1 Occurrences starting 2024 until 12/12/2025 [facility] Work Phone: Comment on above: 1 Occurrences starting 2024 until 12/12/2025 End: 12-12-2025 Magnesium [Mass/volume] in Serum or Plasma Magnesium Lab Routine Medication management 1 Occurrences starting 2024 until 12/12/2025 [facility] Work Phone: Comment on above: 1 Occurrences starting 2024 until 12/12/2025 Renal function 2000 panel - Serum or Plasma [facility] Immunizations Immunization Date Immunization Notes Care Provider Fa [facility] 07-11-2023 influenza virus vacc ine, unspecified formulation Lorraine Mayer MD Work Phone: [facility] 07-10-2022 unknown vaccine or immune globulin Ga Lai DPM Work Phone: [facility] 07-20-2021 unknown vaccine or immune globulin Ga Lai DPM Work Phone: [facility] 07-18-2020 Seasonal trivalent influenza vaccine, adjuvanted, preservative free Luis Kb PA-C Work Phone: [facility] 07-18-2020 influenza virus vacc ine, unspecified formulation Luis Kb PA-C Work Phone: [facility] 07-22-2019 Seasonal trivalent influenza vaccine, adjuvanted, preservative free Luis Kb PA-C Work Phone: [facility] 07-20-2019 influenza, injectabl e, quadrivalent, preservative free Ga Lai DPM Work Phone: [facility] 07-14-2018 Seasonal trivalent influenza vaccine, adjuvanted, preservative free Luis Kb PA-C Work Phone: [facility] 07-15-2017 pneumococcal conjuga te vaccine, 13 valent Luis Kb PA-C Work Phone: [facility] 07-08-2017 influenza, high dose seasonal, preservative-free Luis Kb PA-C Work Phone: [facility] 07-25-2016 influenza, high dose seasonal, preservative-free Luis Kb PA-C Work Phone: [facility] 07-11-2015 influenza, high dose seasonal, preservative-free Luis Kb PA-C Work Phone: [facility] 07-16-2014 influenza, seasonal, injectable Luis Kb PA-C Work Phone: [facility] 07-10-2013 influenza, seasonal, injectable Luis Kb PA-C Work Phone: [facility] 08-08-2012 influenza virus vacc ine, unspecified formulation Luis Kb PA-C Work Phone: [facility] 08-08-2012 pneumococcal polysaccharide vaccine, 23 valent Luis Kb PA-C Work Phone: [facility] 07-11-2011 influenza virus vacc ine, unspecified formulation Luis Kb PA-C Work Phone: [facility] 08-15-2010 influenza virus vacc ine, unspecified formulation Luis Kb PA-C Work Phone: [facility] 07-26-2009 influenza virus vacc ine, unspecified formulation Luis Kb PA-C Work Phone: [facility] 08-04-2008 influenza virus vacc ine, unspecified formulation Luis Kb PA-C Work Phone: [facility] 08-13-2007 influenza virus vacc ine, unspecified formulation Luis Kb PA-C Work Phone: [facility] 08-11-2004 influenza virus vacc ine, unspecified formulation Luis Maringurjit MENDOZA [facility]2003 influenza virus vacc ine, unspecified formulation Luis Maringurjit MENDOZA [facility] 08-09-2003 pneumococcal polysaccharide vaccine, 23 valent Luis Kb MENDOZA Work Phone: [facility] Payers Date Payer Category Payer Medicaid [employer] MEDICARE A DVANTAGE [id number] 2021 Medicare [id number] 2021 Medicare HMO [employer] MEDICARE [id number] 1959 Medicare [id number] [id number] 1944 Unknown [id number] 2.16.840.1.630066.3.579.2.593 1944 Unknown [id number] 2.16.840.1.346933.3.579.2.593 1944 Unknown [id number] 2.16.840.1.496315.3.579.2.593 1944 Unknown [id number] 2.16.840.1.811957.3.579.2.593 1944 Unknown [id number] 2.16.840.1.633085.3.579.2.593 1944 Unknown [id number] 2.16.840.1.238819.3.579.2.593 1944 Unknown [id number] 2.16.840.1.327824.3.579.2.593 1944 Unknown [id number] 2.16.840.1.246332.3.579.2.593 1944 Unknown [id number] 2.16.840.1.666188.3.579.2.593 1944 Unknown [id number] 2.16.840.1.885179.3.579.2.593 1944 Unknown [id number] 2.16.840.1.980572.3.579.2.593 1944 Unknown [id number] 2.16.840.1.134862.3.579.2.593 1944 Unknown [id number] 2.16.840.1.628991.3.579.2.593 1944 Unknown [id number] 2.16.840.1.954962.3.579.2.593 1944 Unknown [id number] 2.16.840.1.972153.3.579.2.593 1944 Unknown [id number] 2.16.840.1.319987.3.579.2.593 1944 Unknown [id number] 2.16.840.1.241544.3.579.2.1286 1944 Unknown [id number] 2.16.840.1.406535.3.579.2.1259 1944 Unknown [id number] 2.16.840.1.219161.3.579.2.1259 1944 Unknown [id number] 2.16.840.1.277873.3.579.2.1259 1944 Unknown [id number] 2.16.840.1.471507.3.579.2.1259 1944 Unknown [id number] 2.16.840.1.111395.3.579.2.1259 1944 Unknown [id number] 2.16.840.1.530149.3.579.2.1259 1944 Unknown [id number] 2.16.840.1.837962.3.579.2.1259 1944 Unknown [id number] 2.16.840.1.630429.3.579.2.1259 1944 Unknown [id number] 2.16.840.1.311859.3.579.2.1259 1944 Unknown [id number] 2.16.840.1.082275.3.579.2.1259 Medicare Medicare [id number] Unknown Unknown [place] [id number] Social History Date Type Detail Facility Unknown if ever smoked [facility] Other Start: 06-25-2024 End: 09-28-2024 Sex Assigned At [facility] Other Start: 03-14-2023 End: 01-17-2024 Tobacco smoking status NHIS Ex-smoker [facility] End: 10-07-1969 History of tobacco use Current smoker [facility] End: 10-07-1969 History of tobacco use Cigarette Smoker [facility] Start: 03-14-2023 End: 01-17-2024 Tobacco use and exposure Smokeless tobacco non-user [facility] Start: 06-25-2024 End: 03-23-2025 Alcoholic beverage intake Not Asked [facility] Start: 06-25-2024 End: 09-28-2024 History of Social function [facility] Start: 10-21-2023 Alcohol Comment caffeine intake: 1-2 cups per day [facility] Start: 1945 Sex assigned at Not on file [facility] Start: 03-19-2023 End: 01-17-2024 Alcoholic beverage intake Ex-drinker (finding) [facility] Do you belong to any clubs or organizations such as orthodox groups, unions, fraternal or athletic groups, or school groups? No [facility] Are you now , , , , never or living with a partner? [facility] How hard is it for y ou to pay for the very basics like food, housing, medical care, and heating Not hard at all [facility] Do you feel stress - tense, restless, nervous, or anxious, or unable to sleep at night because your mind is troubled all the time - these days [OSQ] Not at all [facility] Start: 05-21-2017 End: 01-14-2025 Sex Female (finding) [facility] Start: 1945 Sex Assigned At Female [facility] Goals Date Patient Goal Desired Activity /State Personal health goal Comment on above: Formatting of this n ote might be different from the original. Evaluation of progress towards goal: return home with homecare and support from [facility], children and grandchildren Clinical Notes 01-18-2022 to 03-23-2025 Greg Tineo MD - 03/23/2025 2:30 PM Deny Mayer MD - 02/15/2025 9:40 AM EDTTelephone Encounter - Cary Goldman [employer] - 12/21/2024 10:16 AM KARYNATTleti Lucas MD - 01/17/2024 1:00 PM EDT Note Date & Type Note Facility 03-23-2025 History of Present illness Narrative Skin Check Location: Patient requests a skin examination of the face and arms Dermatologic history: history of Actinic Keratosis, history of Basal Cell Carcinoma, history of Squamous Cell Carcinoma Last visit: 1 year ago Established patient Lesions: Location: Left mormon Duration: 1 year Quality: denies pain, denies itch, denies bleeding Modifying factors: aggravated by picking Associated symptoms: non-healing, rough, scaly Treatments: LN2-last year (lesion did decrease in size) All pertinent medical history, medications, and allergies were reviewed. General Exam: alert, oriented to person, place, and time, normal affect, well appearing Unaccompanied A complete skin exam was offered, pt declined. Scalp, Not examined Head, Face Examined Neck Examined Chest Not examined Back Not examined Abdomen Not examined Right arm Examined Left arm Examined Hands Examined Digits,nails: Examined Lymphatics: Not examined Skin Exam 1. LENTIGINES Generalized Scattered burns macules in sun-exposed areas. The patient was informed that lentigines are benign pigmented lesions that occur on sun-exposed and sun-damaged skin. No treatment is necessary. Recommended regular use of broad spectrum sunscreen SPF 30 or higher 2. SEBORRHEIC KERATOSIS, INFLAMED Left [employer] [place] and brown stuck on verrucous scaly papule with surrounding erythema The patient was informed that symptomatic seborrheic keratoses are benign growths that become inflamed, itchy, tender, traumatized, caught on clothing, or bleed. Symptomatic lesions can be treated with cryotherapy or curretage. Thicker lesions treated with cryotherapy may require more than one treatment. The patient was instructed to notify the office if abnormal redness or tenderness develops at the treatment site. Cryotherapy today, see procedure note. Diagnosis: Inflamed seborrheic keratosis Indication: Inflamed Consent: Verbal consent was obtained and risks were discussed, including, but not limited to risks of scarring, darker or hypo dipper pigmentary changes, recurrence, incomplete removal and infection. Method: Liquid nitrogen was used to treat the lesion(s) with two 5-10 second freeze-thaw cycles Number of lesions treated: 1 Post-procedure instructions: Instructions were given orally and in writing. The office will be contacted if the lesion fails to resolve despite treatment, or if a side effect develops such as abnormal crusting, scabbing, redness or tenderness Cryotherapy, skin lesion - Left Judaism 3. SOLAR PURPURA (2) Left Forearm - Posterior, Right Forearm - Posterior Scattered violaceous macules in sun exposed areas. Recommended regular sun protection. Can try OTC arnica cream if desired. 4. SEBORRHEIC KERATOSIS (2) Left Arm, Right Arm Stuck on verrucous, burns-brown papules and plaques. Patient was counseled regarding these benign growths. Removal is normally not necessary, but they may be removed if they are symptomatic or for cosmetic reasons. Next Visit: 1 year documented in this encounter [facility] 02-25-2025 Note [facility] Cardiology Clinic Note Chief Complaint: Patient here for 3 month follow up. Patient states she is not feeling too bad. Patient states she is having a lot of congestion, coughing, SOB, dyspnea with exertion, leg swelling, fatigue and abdominal swelling. Dr. Rubi increased Lasix to 50mg x 1 month ago. HPI: Kylah Robin is a 79 y.o. female Doing [...] with breakfast and with evening meal., Disp: , Rfl: cloNIDine (Catapres) 0.1 mg tablet, Take 0.1 [...] times daily., Disp: 270 tablet, Rfl: 3 hydrALAZINE (Apresoline) 25 mg tablet, Take 1 tablet (25 mg) by mouth three times daily., Disp: 270 tablet, Rfl: 3 hydrALAZINE (Apresoline) 50 mg tablet, Take 1 tablet (50 mg) by mouth three times daily., Disp: 270 tablet, Rfl: 3 insulin degludec (Tresiba FlexTouch U-100) [...] kg (195 lb) SpO2 97% BMI 31.47 kg/m??? Physical Examination: GENERAL: alert and oriented x3, well developed, in no acute distress. HEAD: atraumatic, normocephalic. EYES: LEIGHANN, EOMI. NECK: trachea midline, no JVD present, no carotid bruits present. CARDIAC: S1, S2 present. RRR. No murmur, rubs, or gallops. RESPIRATORY: CTAB, (more content not included)... [facility] 02-15-2025 History of Present illness Narrative Kylah Robin is a 79 y.o. female No ref. provider found presents with chief complaint of Thyroid Problem and Diabetes Mellitus HPI: History of Present Illness The patient is an 79-year-old female who presents for evaluation of diabetes. She has been managing her blood glucose levels through a regimen of , novolog administered at 12 units during breakfast, 16 units at lunch, and 22 units at dinner. Additionally, she takes 30 units of long-acting insulin twice daily. She reports that her kidney function remains stable with a GFR of 27. She has attempted to use a continuous glucose monitor (CGM) but found it ineffective as she was unable to keep it on. Interim History: 11/2024 Follow-up visit on 11/16/2024 [...] said last GFR around 30 with her pin maker. Interim History: 03/2023 Follow-up visit on [...] she states GFR is 30, per her pin maker. Interim History: 08/24 Followup visit on [...] reading of her . Lab done in [facility] BUN 28/creatinine 1.43, GFR 36, total [...] 7 days allopurinol (Zyloprim) 100 MG tablet aspirin 81 mg, Daily atorvastatin (Lipitor) 80 [...] 1 tablet, 2 times daily HYDROCHLOROTHIAZIDE PO hydrocortisone (Anusol-HC) 25 MG suppository labetalol (Normodyne) 200 MG tablet 2 tablets, 2 times daily levothyroxine (Synthroid, Levoxyl) 150 MCG tablet 2 tablets, Daily before breakfast liothyronine (Cytomel) 5 MCG tablet 1 tablet, Daily lisinopril 40 MG tablet MAGNESIUM PO minocycline 100 MG capsule 1 capsule, Every 12 hours mbvrwavkeppl-zfzz-qoohyohk-folic acid (Centrum) chewable tablet 1 tablet, Daily NovoLOG FLEXPEN 10-15 Units, 3 times daily with meals PANTOPRAZOLE SODIUM PO ranolazine (Ranexa) 500 MG 12 hr tablet 1 tablet, 2 times daily ALLERGIES: Allergies Allergen Reactions Amlodipine Unknown Amoxicillin Unknown Amoxicillin-Pot Clavulanate Unknown Doxazosin Unknown Iodinated Contrast Media Other Sulfamethoxazole Unknown Trimethoprim Unknown Past Medical History: Diagnosis Date Actinic keratosis Acute arthritis Arthritis Basal cell carcinoma CAD (coronary artery disease) ([facility]/HCC) Chronic kidney disease, stage III (moderate) (HCC) ([facility]) Current use of insulin ([facility]) Diabetes ([facility]) Frozen shoulder GERD (gastroesophageal reflux disease) Gout 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[facility]) HLD (hyperlipidemia) ([facility]) HTN (hypertension) ([facility]) Hypoglycemia Hypothyroidism ([facility]) Obesity with body mass index (BMI) of 30.0 to 39.9 Squamous cell skin cancer Thyroid disease ([facility]) Type 2 diabetes mellitus with other diabetic kidney complication ([facility]) Vitamin D deficiency Past Surgical History: [...] no Lab Results Component Value Date HGBA1C 6.6 02/15/2025 HGBA1C 7.0 11/16/2024 Lab Results Component Value Date GLU 238 02/15/2025 GLU 220 11/16/2024 GLU 180 07/13/2024 02/09/2020 12:00 PM 04/12/2020 12:00 PM 04/15/2020 12:00 PM 03/13/2022 12:00 PM 03/16/2024 9:19 AM 11/16/2024 9:49 AM 02/15/2025 9:51 AM Vitals BMI 32.28 kg/m2 32.28 kg/m2 32.28 kg/m2 29.38 kg/m2 30.53 kg/m2 31 kg/m2 BSA (m2) 2.06 m2 2.06 m2 2.06 m2 1.96 m2 2.02 m2 2.04 m2 Systolic 169 130 130 132 Diastolic 79 70 80 62 Heart Rate 63 62 63 SpO2 97 % 97 % 97 % Resp 16 16 16 Height (in) 5' 6 5' 6 5' 6 5' 6 5' 6.5 5' 6.5 Weight (lb) 200 200 182 192 195 Visit Report Report Report Report ASSESSMENT AND PLAN: Assessment/Plan Diagnoses and all orders for this visit: Type 2 diabetes mellitus with hyperglycemia, with long-term 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 ([facility]) - POCT glucose manually resulted - POCT glycosylated hemoglobin (Hb A1C) docked device Vitamin D deficiency Microalbuminuria Hyperlipemia, mixed ([facility]) Primary hypertension ([facility]) Insulin long-term use ([facility]) 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[facility]) Encounter for dietary consultation Chronic renal disease, stage IV ([facility]) Said her last GFR 27 Assessment & Plan 1. Diabetes Mellitus. Her A1c level is 6.6, while her blood glucose level is slightly elevated at 238. She is currently on novolog taking 12 units at breakfast, 16 units at lunch, and 22 units at dinner, with an additional tresiba 30 units of long-acting insulin twice a day. She reports that her kidney function remains stable with a GFR of 27. She has tried using a continuous glucose monitor (CGM) but found it ineffective as she could not keep it on. She is advised to continue her current insulin regimen. If she needs any prescriptions, she should inform the office. Follow up in about 4 months (around 06/18/2025). documented in this encounter [facility] 12-21-2024 Miscellaneous Notes Phoned pt and lm on to call office for any further refills. Letter mailed to pt. documented in this encounter [facility] 12-21-2024 Telephone encounter Note Phoned pt and lm on to call office for any further refills. Letter mailed to pt. [facility] 12-12-2024 Miscellaneous Notes Last OV 4//24 Mg 3/27/24 Mg pended; refill letter mailed documented in this encounter [facility] 12-12-2024 Miscellaneous Notes Last OV 01/17/24 Lipid profile 07/08/23 Lipid panel pended; refill letter mailed documented in this encounter [facility] 12-12-2024 Telephone encounter Note Last OV 4/12/24 Mg 3/27/24 Mg pended; refill letter mailed [facility] 12-12-2024 Telephone encounter Note Last OV 01/17/24 Lipid profile 07/08/23 Lipid panel pended; refill letter mailed [facility] 11-27-2024 Note SUBJECTIVE Reason for Visit: Kylah [...] for a follow-up after being discharged from [facility] in February 2024. She was admitted [...] Diagnosis Acquired hypothyroidism Anemia Arthritis Atherosclerosis of wrangell coronary artery 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 angina pectoris Combined forms of [...] 0.1 mg, o (more content not included)... [facility] 11-27-2024 Note Patient here for 6 m o follow up CAD, hypertension, MR, and diastolic dysfunction. Had echo in Jun 2024. She presented to [facility] ED last week with concerns of elevated BP. She takes clonidine PRN for elevated SBP > 200. Denies chest pain and SOB. Does feel palpitations. She wonders if the clonidine patches would help her. Review of Systems Cardiovascular: Positive for irregular heartbeat and palpitations. Musculoskeletal: Positive for myalgias. All other systems reviewed and are negative. [facility] 11-16-2024 History of Present illness Narrative [...] said last GFR around 30 with her pin maker. Interim History: 03/2023 Follow-up visit on [...] she states GFR is 30, per her pin maker. Interim History: 08/24 Followup visit on [...] reading of her . Lab done in [facility] BUN 28/creatinine 1.43, GFR 36, total [...] MG capsule 1 capsule, Every 12 hours bverzfclsezn-yvrk-xitrygsm-folic acid (Centrum) chewable tablet 1 tablet, Daily [...] Basal cell carcinoma CAD (coronary artery disease) ([facility]/HCC) Chronic kidney disease, stage III (moderate) (HCC) ([facility]) Current use of insulin ([facility]) Diabetes ([facility]/HCC) Frozen shoulder GERD (gastroesophageal reflux disease) Gout 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[facility]/HCC) HLD (hyperlipidemia) ([facility]) HTN (hypertension) ([facility]) Hypoglycemia Hypothyroidism ([facility]) Obesity with body mass index (BMI) of 30.0 to 39.9 Squamous cell skin cancer Thyroid disease ([facility]) Type 2 diabetes mellitus with other diabetic kidney complication ([facility]) Vitamin D deficiency Past Surgical History: [...] 03/16/2025). documented in this encounter [facility] 09-06-2024 History of Present illness [...] arise. documented in this encounter [facility] 09-05-2024 Miscellaneous Notes Asad 01/17/24 Cmp 01/01/24 documented in this encounter [facility] 09-05-2024 Telephone encounter Note Asad 01/17/24 Cmp 01/01/24 [facility] 07-13-2024 History of Present illness Narrative Kylah [...] said last GFR around 30 with her pin maker. Interim History: 03/2023 Follow-up visit on [...] she states GFR is 30, per her pin maker. Interim History: 08/24 Followup visit on [...] reading of her . Lab done in [facility] BUN 28/creatinine 1.43, GFR 36, total [...] MG capsule 1 capsule, Every 12 hours wzqiacuqjlmv-ritt-zdghjmvo-folic acid (Centrum) chewable tablet 1 tablet, Oral, [...] Basal cell carcinoma CAD (coronary artery disease) ([facility]/HCC) Chronic kidney disease, stage III (moderate) (HCC) ([facility]) Current use of insulin ([facility]) Diabetes ([facility]) Frozen shoulder GERD (gastroesophageal reflux disease) Gout 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[facility]) HLD (hyperlipidemia) ([facility] HTN (hypertension) ([facility]) Hypoglycemia Hypothyroidism ([facility]) Obesity with body mass index (BMI) of 30.0 to 39.9 Squamous cell skin cancer Thyroid disease ([facility]) Type 2 diabetes mellitus with other diabetic kidney complication ([facility]) Vitamin D deficiency Past Surgical History: [...] hyperglycemia, with long-term 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 ([facility]) - POCT glucose manually resulted We will continue long-acting 30 units does not remember the name, short-acting 07/18/15 according to meal size Vitamin D deficiency Microalbuminuria Hyperlipemia, mixed (CMS/HCC) Primary hypertension (CMS/HCC) Insulin long-term use (CMS/HCC) 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CMS/HCC) Continue levothyroxine 150 and Cytomel 5 Encounter for dietary consultation Chronic renal disease, stage IV (CMS/[facility]) Follow up in about 4 months (around 11/13/2024). documented in this encounter [facility] 06-25-2024 History of Present illness [...] site. documented in this encounter [facility] 06-04-2024 History of Present illness Narrative Follow up Diagnosis: Rash unspecified Location: hands Procedure performed: Punch biopsy Status: not as painful Date of procedure: 05/25/2024 Current treatment: Betamethasone Dipro 0.05% cream, here for biopsy results Suture Removal Patient here for suture removal: No complaints of redness, drainage or swelling at site, compliant with wound care. Location: Right Hypothenar Eldred Procedure Performed: Punch biopsy Date of Procedure: 05/25/2024 Medications: Betamethasone All pertinent medical history, medications, and allergies were reviewed. General Exam: alert , oriented to person, place, and time , normal affect, well appearing Unaccompanied A focused exam completed based on patient reported problems, see below: 1. Granuloma annulare Left Hand - Anterior, Right Hand - Anterior [place] indurated annular plaques. Flaring today, but improved [...] lesions documented in this encounter [facility] 05-25-2024 History of Present illness [...] and other nonspecific skin eruption Right Hypothenar [place]red [place] plaques Biopsy today, see procedure note. Start Betamethasone cream bid when flared, hold when clear. Lesion biopsy - Right Hypothenar [place] Type of biopsy: punch Informed consent: discussed [...] results documented in this encounter [facility] 05-11-2024 Note [facility] Cardiology Clinic Note Chief Complaint: Patient here for follow up [facility] discharge back in February 2024. She [...] ventricular gram/pressure Indications (more content not included)... [facility] 03-18-2024 Miscellaneous Notes Asad 01/17/24 Mg 07/08/23 -per 07/09/23 refill encounter Pt needs mg, orders in place. documented in this encounter [facility] 03-18-2024 Telephone encounter Note Asad 01/17/24 Mg 07/08/23 -per 07/09/23 refill encounter Pt needs mg, orders in place. [facility] 01-17-2024 History of Present illness Narrative Kylah Robin Date of visit: 01/17/2024 Date of : 1945 Age: 78 y.o. 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 She was recently hospitalized at [facility] for poorly controlled blood pressure. Her blood [...] pain Chronic kidney disease COVID-19 Diabetes mellitus ([facility]-HCC) Dyspnea Edema GERD (gastroesophageal reflux disease) Gout Hyperlipidemia Hypertensive urgency Hypothyroidism Lower back pain Mitral regurgitation Osteopenia Ventricular hypertrophy No data recorded No data recorded No data recorded Past Surgical History: Procedure Laterality Date CARDIAC CATHETERIZATION CATARACT EXTRACTION, BILATERAL CHOLECYSTECTOMY COLONOSCOPY Coronary angiogram and left ventricular gram/pressure N/A 12/28/2020 Performed by Kassie Nicole MD at [facility] CARDIAC CATH LABS CORONARY ARTERY BYPASS GRAFT X 4 with OCASIO and SVG x3 / EVH LEFT upper and lower AND RIGHT upper LEG / LUCAS N/A 12/29/2020 Performed by Herrera De Paz MD at [facility] D&C FIRST TRIMESTER / TX INCOMPLETE / [...] min Stress: No Stress Concern Present (12/28/2020) [place] - Occupational Stress Questionnaire Feeling of Stress : Not at all Social Connections: Moderately Integrated (12/28/2020) Social Connection and Isolation Panel [NHANES] Frequency of Communication with Friends and Family: More than three times a week Frequency of Social Gatherings with Friends and Family: More than three times a week Attends Orthodoxy Services: More than 4 times per year [...] tablet Reorder IMPRESSIONS/PLAN 1. Paroxysmal atrial fibrillation ([facility]) - POCT EKG - carvediloL (COREG) 25 mg tablet; Take 2 tablets (50 mg total) by mouth in the morning and 2 tablets (50 mg total) before bedtime. Dispense: 180 tablet; Refill: 3 2. Stage 4 chronic kidney disease ([facility]) - Basic Metabolic Panel; Future 3. 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 Other forms of angina pectoris ([facility]) 5. Essential hypertension - Basic Metabolic Panel; Future 6. Atherosclerosis of wrangell coronary artery 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 angina pectoris 7. H/O four [...] BNP. 2. Atherosclerosis of coronary arteries 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 angina pectoris. Patient has had [...] RUBI MD Referring Physician: Merrick Rubi MD [facility] [place] [address] documented in this encounter [facility] 01-16-2024 Miscellaneous Notes Called patient to remind them to bring their most current copy of their medication list with them to their appt. Patient verbalizes understanding. documented in this encounter [facility] 01-16-2024 Telephone encounter Note Called patient to remind them to bring their most current copy of their medication list with them to their appt. [facility]izes understanding. [facility] Encounter Date Diagnosis Assessment [...] potassium improved with dietary restriction and Lasix. [facility] Other 01-29-2024 Evaluation note* Encounter Date Diagnosis Assessment Notes Treatment Notes Treatment Clinical Notes Oct, Anemia of renal disease (ICD-10 - D63.1) Oct, CKD (chronic kidney disease) stage 4, GFR 15-29 ml/min (ICD-10 - N18.4) [facility] Other 01-09-2024 Evaluation note* Encounter Date Diagnosis [...] potassium improved with dietary restriction and Lasix. [facility] Other 12-04-2023 Evaluation note* Encounter Date Diagnosis [...] 4, GFR 15-29 ml/min (ICD-10 - N18.4) [facility] Other 11-21-2023 Evaluation note* Encounter Date Diagnosis Assessment Notes Treatment Notes Treatment Clinical Notes Aug, Anemia of renal disease (ICD-10 - D63.1) Aug, CKD (chronic kidney disease) stage 4, GFR 15-29 ml/min (ICD-10 - N18.4) [facility] Other 11-09-2023 Evaluation note* Encounter Date Diagnosis [...] of kidney mass hydronephrosis or kidney stones. [facility] Other 10-26-2023 Evaluation note* Encounter Date Diagnosis [...] potassium improved with dietary restriction and Lasix. [facility] Other 09-18-2023 Evaluation note* Encounter Date Diagnosis [...] potassium improved with dietary restriction and Lasix. [facility] Other 08-31-2023 Evaluation note* Encounter Date Diagnosis [...] potassium improved with dietary restriction and Lasix. [facility] Other 07-25-2023 Evaluation note* Encounter Date Diagnosis [...] to normal with dietary restriction and Lasix. [facility] Other 07-01-2023 Evaluation note* Encounter Date Diagnosis Assessment Notes Treatment Notes Treatment Clinical Notes Apr, CKD (chronic kidney disease) stage 4, GFR 15-29 ml/min (ICD-10 - N18.4) Apr, Anemia of renal disease (ICD-10 - D63.1) [facility] Other 06-27-2023 Evaluation note* Encounter Date Diagnosis [...] to normal with dietary restriction and Lasix. [facility] Other 06-01-2023 Evaluation note* Encounter Date Diagnosis [...] potassium diet and provide information about it. [facility] Other 03-16-2023 Evaluation note* Encounter Date Diagnosis [...] to Continue Vit D 5000 units daily [facility] Other 01-30-2023 Evaluation note* Encounter Date Diagnosis [...] to Continue Vit D 5000 units daily [facility] Other 12-22-2022 Evaluation note* Encounter Date Diagnosis [...] to Continue Vit D 5000 units daily [facility] Other 11-16-2022 Evaluation note* Encounter Date Diagnosis [...] to Continue Vit D 5000 units daily [facility] Other 08-04-2022 Evaluation note* Encounter Date Diagnosis Assessment Notes Treatment Notes Treatment Clinical Notes May, Hypertensive chronic kidney disease with stage 1 through stage 4 chronic kidney disease, or unspecified chronic kidney disease (ICD-10 - I12.9) [facility] Other 08-02-2022 Evaluation note* Encounter Date Diagnosis [...] to Continue Vit D 5000 units daily [facility] Other 07-19-2022 Evaluation note* Encounter Date Diagnosis Assessment Notes Treatment Notes Treatment Clinical Notes Apr, Hypertensive chronic kidney disease with stage 1 through stage 4 chronic kidney disease, or unspecified chronic kidney disease (ICD-10 - I12.9) [facility] Other 04-14-2022 Evaluation note* Encounter Date Diagnosis [...] to take Vit D 1000 units daily [facility] Other Evaluation noteNo [facility] Other Evaluation note* Diagnosis Type 2 diabetes mellitus with hyperglycemia, with long-term 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 ([facility])- Primary Vitamin D deficiency Microalbuminuria Proteinuria Hyperlipemia, mixed ([facility]) Mixed hyperlipidemia Primary hypertension ([facility]) Unspecified essential hypertension Insulin long-term use ([facility]) Encounter for long-term (current) use of insulin 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[facility]) Chronic lymphocytic thyroiditis Encounter for dietary consultation Chronic renal disease, stage IV ([facility]) Chronic kidney disease, Stage IV (severe) documented in this encounter [facility] HealthcareEvaluation note* Diagnosis Rash and other nonspecific skin eruption- Primary documented in this encounter [facility]* Diagnosis Granuloma annulare- Primary Other specified erythematous condition documented in this encounter [facility]* Diagnosis Onychomycosis- Primary Dermatophytosis of nail Pain in both feet Corns and callosities Type 2 diabetes mellitus without complication, with long-term 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 ([facility]) documented in this encounter [facility] HealthcareEvaluation note* Diagnosis Onychomycosis- Primary Dermatophytosis of nail Pain in both feet Corns and callosities Type 2 diabetes mellitus without complication, with long-term 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 ([facility]) documented in this encounter [facility] HealthcareEvaluation note* Diagnosis Type 2 diabetes mellitus with hyperglycemia, with long-term 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 ([facility])- Primary Vitamin D deficiency Microalbuminuria Proteinuria Hyperlipemia, mixed ([facility]) Mixed hyperlipidemia Primary hypertension ([facility]) Unspecified essential hypertension [place]ulin long-term use [place] Encounter for long-term (current) use of insulin 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[facility]) Chronic lymphocytic thyroiditis Encounter for dietary consultation Chronic renal disease, stage IV ([facility]) Chronic kidney disease, Stage IV (severe) documented in this encounter [facility] HealthcareEvaluation note* Diagnosis Atherosclerosis of wrangell coronary artery 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 angina 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 Hypertensive urgency Shortness of breath Paroxysmal atrial fibrillation ([facility]) Atrial fibrillation Localized edema Edema [facility] Diagnosis Paroxysmal [facility] [place] Primary Atrial fibrillation Stage 4 chronic kidney disease [place] 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 ([facility] Other forms of angina pectoris [place] Essential hypertension Unspecified essential hypertension Atherosclerosis of wrangell coronary artery 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 angina 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 Hypertensive urgency Shortness of breath Localized edema Edema [facility]* Diagnosis Medication management- Primary documented in this encounter [facility] SystemEvaluation note* Diagnosis Medication management- Primary Atherosclerosis of wrangell coronary artery 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 angina 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 Hypertensive urgency Shortness of breath Paroxysmal atrial fibrillation ([facility]) Atrial fibrillation Localized edema Edema documented in this encounter [facility] SystemEvaluation note* Diagnosis Onset Date Resolution Status Admit Date Anemia of renal disease acute A pril 2024 8:59am Asymptomatic bacteriuria acute January 14, 2025 8:59am CKD (chronic kidney disease) stage 4, GFR 15-29 ml/min acute January 14, 2025 8:59am Gout acute January 14 8:59am Hyperlipidemia acute January 8:59am Hypertensive chronic kidney disease with stage 1 through stage 4 chronic ki acute January 14, 2025 8:59am Secondary hyperparathyroidism acute January 14, 2025 8:59am Type 2 diabetes mellitus wit h diabetic chronic kidney disease acute January 14, 2025 8:59am [facility] Work Phone: Evaluation note* Diagnosis Type 2 diabetes mellitus with hyperglycemia, with long-term 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 ([facility])- Primary Vitamin D deficiency Microalbuminuria Proteinuria Hyperlipemia, mixed ([facility]) Mixed hyperlipidemia Primary hypertension ([facility]) Unspecified essential hypertension Insulin long-term use ([facility]) Encounter for long-term (current) use of insulin 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[facility]) Chronic lymphocytic thyroiditis Encounter for dietary consultation Chronic renal disease, stage IV ([facility]) Chronic kidney disease, Stage IV (severe) documented in this encounter [facility] HealthcareEvaluation note* Diagnosis Hyperlipidemia, unspecified hyperlipidemia type- Primary Atherosclerosis of wrangell coronary artery 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 angina 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 Hypertensive urgency Shortness of breath Paroxysmal atrial fibrillation ([facility]) Atrial fibrillation Localized edema Edema documented in this encounter [facility] SystemEvaluation note* Diagnosis Seborrheic keratosis- Primary Seborrheic keratosis, inflamed Solar purpura Lentigines documented in this encounter [facility] HealthcareHistory general Narrative - Reported* Type [...] NOSE 10/2019 Surgical History QUAD BYPASS AT [facility] [place] 01/01/2021 Hospitalization History ELEVATED BLOOD PRESSURE Hospitalization History SEE ABOVE Hospitalization History COVID 09/2020 [place] Other History general Narrative - Reported* Type [...] History SEE ABOVE Hospitalization History COVID 09/2020 [place] Other [facility] general Narrative - Reported* Type Description Date [...] History SEE ABOVE Hospitalization History COVID 09/2020 [place] Other [facility] general Narrative - ReportedMinot True Style Other history general Narrative - Reported* Type [...] NOSE 10/2019 [facility] [place] [facility]/01/2021 Hospitalization History ELEVATED BLOOD PRESSURE Hospitalization History SEE ABOVE Hospitalization History COVID 09/2020 [place] Other InstructionsNot on filedocumented in this [facility] Summary Purpose Family History No Family History Records Found Relationship Condition Age at Onset Recorded Date/T lorenzo mother Myocardial infarction Unknown father Malignant neoplasm Unknown brother Myocardial infarction Unknown sister Myocardial infarction Unknown brother Heart disease Unknown Diabetes mellitus Unknown father Hypertension Unknown Unknown Malignant neoplasm Unknown mother Unknown Heart disease Unknown son Heart disease Unknown Myocardial infarction Unknown sister Diabetes mellitus Unknown Hypertension Unknown Advance Directives No Advanced Directives Records Found Date Activated Date Inactivated Comments 12/28/2020 2:33 PM 01/03/2021 7:38 PM Latest Code Status on File Code Status Date Activated Date Inactivated Comments Full Code 12/28/2020 2:33 PM 01/03/2021 7:38 PM Advance Directive Response Recorded Date/ Time Advance Directives No October 08, 2019 1:31pm Chief Complaint and Reason for Visit Chief Complaint Admit Date RENAL 4 MONTH F/U January 14, 2025 8:5 9am Reason for Visit Admit Date Anemia of renal disease January 14, 2025 8:59am Asymptomatic bacteriuria January 14 8:59am CKD (chronic kidney disease) stage 4, GF R 15-29 ml/min January 14, 2025 8:59am Gout January 14, 2025 8:5 9am Hyperlipidemia January 14, 2025 8:5 9am Hypertensive chronic kidney disease with stage 1 through stage 4 chronic ki January 14, 2025 8:59am Secondary hyperparathyroidism January 8:59am Type 2 diabetes mellitus with diabetic c hronic kidney disease January 14, 2025 8:59am Additional Source Comments INFORMATION SOURCE (unrecogn ized section and content) DATE CREATED AUTHOR 04/02/2018 [facility] DATE CREATED AUTHOR AUTHOR'S ORGANIZ ATION 01/27/2023 [facility] DATE CREATED AUTHOR AUTHOR'S ORGANIZ ATION 01/18/2024 [facility] DATE CREATED AUTHOR AUTHOR'S ORGANIZ ATION 03/03/2025 [facility] DATE CREATED AUTHOR AUTHOR'S ORGANIZ ATION 03/26/2025 [facility] EPIC REASON FOR VISIT (unrecogniz ed section and content) Reason Comments Diabetes Mellitus Follow-up Reason Comments Skin Problem Reason Comments Suture / Staple Removal Reason Comments Diabetes Thyroid Problem Follow-up Reason Comments Med Refill Reason Comments Hospital Follow-up [facility] HTN AND 1 MONTH Hypertension Atrial Fibrillation Shortness of Breath Reason Comments Thyroid Problem Diabetes Mellitus Care Teams (unrecognized sec tion and content) Custodial Laborer Relationship Specialty Start Date End Date Merrick Rubi MD [address] [place] [address] PCP - General Family Medicine 10/22/23 Custodial Laborer Relationship Specialty Start Date End Date Merrick Rubi MD [address] [place] [address] PCP - General Family Medicine 10/22/23 Custodial Laborer Relationship Specialty Start Date End Date Merrick Rubi MD [address] [place] [address] PCP - General Family Medicine 10/22/23 Custodial Laborer Relationship Specialty Start Date End Date Merrick Rubi MD [address] [place] [address] PCP - General Family Medicine 10/22/23 Custodial Laborer Relationship Specialty Start Date End Date Merrick Rubi MD [address] [facility] [address] PCP - General Family Medicine 10/22/23 Custodial Laborer Relationship Specialty Start Date End Date Merrick Rubi MD [address] [facility] [address] PCP - General Family Medicine 10/22/23 Custodial Laborer Relationship Specialty Start Date End Date Merrick Rubi MD [address] [facility] [address] PCP - General Family Medicine 10/22/23 Custodial Laborer Relationship Specialty Start Date End Date Merrick Rubi MD [address] [facility], [phone] PCP - General Family Medicine 10/22/23 Custodial Laborer Relationship Specialty Start Date End Date Merrick Rubi MD [address] [facility], [phone] PCP - General Family Medicine 10/22/23 Custodial Laborer Relationship Specialty Start Date End Date Merrick Rubi MD [address] [place] [facility] [address] PCP - General Family Medicine 10/20/20 Custodial Laborer Relationship Specialty Start Date End Date Merrick Rubi MD [address] [place] [facility] [address] PCP - General Family Medicine 10/20/20 Custodial Laborer Relationship Specialty Start Date End Date Merrick Rubi MD [address] [place] [facility] [address] PCP - General Family Medicine 10/20/20 Custodial Laborer Relationship Specialty Start Date End Date Merrick Rubi MD [address] [place] [id number] PCP - General Family Medicine 10/20/20 Custodial Laborer Relationship Specialty Start Date End Date Merrick Rubi MD PCP - General Family Medicine 10/20/20 Custodial Laborer Relationship Specialty Start Date End Date Merrick Rubi MD PCP - General Family Medicine 10/20/20 Custodial Laborer Relationship Specialty Start Date End Date Merrick Rubi MD PCP - General Family Medicine 10/20/20 Custodial Laborer Relationship Specialty Start Date End Date Merrick Rubi MD PCP - General Family Medicine 10/20/20 Team Status: Active Member Role Status Dates Merrick Rubi MD Primary Care Provider Active Team Status: Active Member Role Status Dates Merrick Rubi MD Primary Care Provider Active Start: January 05, 2025 Ron Martinez MD Attending Provider Active Start : January 05, 2025 Team Status: Inactive Member Role Status Dates Merrick Rubi MD Primary Care Provider Active Start: January 14, 2025 End: January 14, 2025 Ron Martinez MD Attending Provider Active Start : January 14, 2025 End: January 14, 2025 Custodial Laborer Relationship Specialty Start Date End Date Merrick Rubi MD PCP - General Family Medicine 10/22/23 Custodial Laborer Relationship Specialty Start Date End Date Merrick Rubi MD PCP - General Family Medicine 10/22/23 Custodial Laborer Relationship Specialty Start Date End Date Merrick Rubi MD PCP - General Family Medicine 10/20/20 Custodial Laborer Relationship Specialty Start Date End Date Merrick Rubi MD PCP - General Family Medicine 10/22/23 Custodial Laborer Relationship Specialty Start Date End Date Merrick Rubi MD PCP - General Family Medicine 10/22/23 Goals (unrecognized section and content) Goals may be documented in a n alternate section FOR RECORDS PERTAINING TO PATIENTS WHO ARE [...] BE BASED ON THE PRIMARY CLINICAL RECORDS. [employer] provides no warranty or guarantee of the accuracy or completeness of information in this document.
--- NOTE | 2025-04-21 21:26 | XR_ITS ---
The [address] [address] Patient Name: KYLAH BERGER MRN: [id number] date: 1945 Sex: F Assigned Patient Location: ER Current Patient Location: ER Accession/Order Number: [id number] Exam Date: 04/21/2025 21:57 Report Date: 04/21/2025 21:58 At the request of: HOANG FUNES MD Procedure: XR chest 1V XR chest 1V 04/21/2025 9:43 PM SIGNS AND SYMPTOMS: ^hypoglycemia PROTOCOL: Frontal radiograph of the chest COMPARISON: 12/31/2024 FINDINGS: The trachea is midline. Sternotomy wires overlie the mediastinum. The heart and mediastinal structures are within normal limits. The lung parenchyma is clear. The bony thorax is intact. XR/XR chest 1V IMPRESSION: No acute cardiopulmonary pathology. Impression dictated by: Juan Grey M.D. 04/21/2025 9:58 PM Dictation Location: [employer] Electronically authenticated by: [id number] Y Date: 04/21/2025 21:58
--- NOTE | 2025-04-21 21:26 | ED.GENADUL1 ---
HPI HPI - General Adult General Chief complaint: Recheck/Abnormal Lab/Rx Stated complaint: Hypoglycemia Time Seen by Provider: 04/21/25 21:14 Source: patient Mode of arrival: ambulance Limitations: no limitations History of Present Illness HPI narrative: past history of IDDM. states she ate corn on the barnes tonight and then afterwards took her hs insulin 22 units. Next thing she recalls is waking up to [employer]. No chest pain, No dyspnea, abdominal pain or UTI symptoms given D10 by squad. Related Data Home Medications ?Medication ?Instructions ?Recorded ?Confirmed atorvastatin 80 mg tablet 80 mg PO .QHS 03/17/23 09/20/24 insulin aspart U-100 100 unit/mL 12 unit subcut DAILY 03/17/23 09/20/24 (3 mL) subcutaneous pen (Novolog FlexPen U-100 Insulin aspart) magnesium oxide 400 mg (241.3 mg 400 mg PO TID 03/17/23 09/20/24 magnesium) tablet pantoprazole 40 mg tablet,delayed 40 mg PO .QD 03/17/23 09/20/24 release ferrous sulfate 325 mg (65 mg 325 mg PO BID 12/31/23 09/20/24 iron) tablet furosemide 20 mg tablet 20 mg PO DAILY 01/22/24 09/20/24 allopurinol 100 mg tablet 50 mg PO QDAY 09/20/24 09/20/24 cefdinir 300 mg capsule 600 mg PO Q12H 09/20/24 09/20/24 Previous Rx's ?Medication ?Instructions ?Recorded insulin detemir U-100 100 unit/mL 26 unit (0.26 mL) subcut BID #15 mL 01/24/24 (3 mL) subcutaneous pen (Levemir FlexPen) aspirin 81 mg chewable tablet 81 mg PO QD #30 tabs 03/05/24 carvedilol 25 mg tablet 25 mg PO BIDWM@0700,1900 #60 tabs 03/05/24 clonidine HCl 0.1 mg tablet 0.1 mg PO Q4H PRN Hypertension #60 03/05/24 tabs hydralazine 25 mg tablet 25 mg PO TID take after breakfast, 03/05/24 lunch and supper #90 tabs isosorbide mononitrate 120 mg 120 mg PO QAM take after breakfast 03/05/24 tablet,extended release 24 hr #30 tabs levothyroxine 100 mcg capsule 100 mcg PO DAILY #30 caps 03/05/24 liothyronine 5 mcg tablet 5 mcg PO ACB #60 tabs 03/05/24 ondansetron HCl 4 mg tablet 4 mg PO Q6H PRN nausea and 09/20/24 vomiting #12 tabs Allergies Allergy/AdvReac Type Severity Reaction Status Date / Time amlodipine (From Norvasc) Allergy Mild itchy Verified 04/21/25 21:20 Iodinated Contrast Media Allergy Unknown Unconscious Verified 04/21/25 21:20 amoxicillin (From Augmentin) Allergy Rash Verified 04/21/25 21:20 clavulanic acid (From Allergy Rash Verified 04/21/25 21:20 Augmentin) sulfamethoxazole (From Allergy Rash Verified 04/21/25 21:20 Bactrim) trimethoprim (From Bactrim) Allergy Rash Verified 04/21/25 21:20 Opioid HPI Opioid Management Most Recent Opioid Data: Last Pain Scale 0 03/04/24, 06:00 Last ORT Total Score 0 03/01/24, 23:16 Last ORT Risk Category Low Risk 03/01/24, 23:16 Review of Systems ROS Status of ROS 10 or more systems reviewed and unremarkable except as noted in history and below [facility] Medical History (Updated 04/21/25 @ 23:19 by Dmitriy yLnne MD) Chest pain ?R07.9 - Chest pain, unspecified (ICD-10) Hypertensive urgency ?I16.0 - Hypertensive urgency (ICD-10) Iron deficiency anemia, unspecified ?D50.9 - Iron deficiency anemia, unspecified (ICD-10) Hypothyroidism (acquired) ?E03.9 - Hypothyroidism, unspecified (ICD-10) (HFpEF) heart failure with preserved ejection fraction ?I50.30 - Unspecified diastolic (congestive) heart failure (ICD-10) Hypertensive emergency ?I16.1 - Hypertensive emergency (ICD-10) Chronic kidney disease ?N18.9 - Chronic kidney disease, unspecified (ICD-10) Hypertensive urgency ?I16.0 - Hypertensive urgency (ICD-10) Chest pain ?R07.9 - Chest pain, unspecified (ICD-10) Hypertensive urgency ?I16.0 - Hypertensive urgency (ICD-10) Raynaud disease ?I73.00 - Raynaud's syndrome without gangrene (ICD-10) Basal cell carcinoma of skin of nose ?C44.311 - Basal cell carcinoma of skin of nose (ICD-10) Elevated cholesterol ?E78.00 - Pure hypercholesterolemia, unspecified (ICD-10) Chronic kidney disease ?N18.9 - Chronic kidney disease, unspecified (ICD-10) HTN (hypertension) ?I10 - Essential (primary) hypertension (ICD-10) Diabetes ?E11.9 - Type 2 diabetes mellitus without complications (ICD-10) CAD (coronary artery disease) ?I25.10 - Atherosclerotic heart disease of [place] coronary artery without angina pectoris (ICD-10) Surgical History S/P CABG x 1 ?Z95.1 - Presence of aortocoronary bypass graft (ICD-10) H/O shoulder surgery ?Z98.890 - Other specified postprocedural states (ICD-10) History of cholecystectomy ?Z90.49 - Acquired absence of other specified parts of digestive tract (ICD-10) History of hysterectomy ?Z90.710 - Acquired absence of both cervix and uterus (ICD-10) Family History Sister Family history of myocardial infarction Family history of hypertension Brother Family history of myocardial infarction Family history of diabetes mellitus Brother Family history of hypertension Father Family history of cancer Social History Smoking status: Former smoker Highest level of school completed/degree received: 12th grade, no diploma Little interest or pleasure in doing things: not at all Feeling down, depressed, or hopeless: not at all Exam Constitutional Vital Signs, click to edit/add: Last Vital Signs Pulse 54 L 04/21/25 21:20 Resp 16 04/21/25 21:20 BP 182/78 H 04/21/25 21:28 Pulse Ox 99 04/21/25 21:20 O2 Del Method Room Air 04/21/25 21:20 Common normals: no apparent distress, average body habitus, oriented x3, no limitations, healthy appearing, alert and well nourished HENAL Common normals: normocephalic and head/scalp atraumatic Eye Common normals: EOMs intact bilaterally and conjunctivae normal Respiratory Common normals: normal respiratory effort, no retractions, no use of accessory muscles and clear to auscultation bilaterally Cardio Common normals: regular rate, regular rhythm, S1 normal heart sound and S2 normal heart sound GI Common normals: Normal to inspection, nondistended, normoactive bowel sounds present, soft to palpation and non-tender Extremity Common normals: normal to inspection and full ROM Neuro Common normals: oriented x3, CN's II-XII intact bilaterally, moves all extremities and no focal motor deficits Psych Appearance: grossly normal Course Vital Signs Vital signs: Vital Signs Pulse Rate 54 L 04/21/25 21:20 Respiratory Rate 16 04/21/25 21:20 Pulse Oximetry 99 04/21/25 21:20 Oxygen Delivery Method Room Air 04/21/25 21:20 Pulse Rate 54 L 04/21/25 21:20 Respiratory Rate 16 04/21/25 21:20 Blood Pressure 182/78 H 04/21/25 21:28 Pulse Oximetry 99 04/21/25 21:20 Oxygen Delivery Method Room Air 04/21/25 21:20 Medical Decision Making MDM Narrative Medical decision making narrative: presents from home after hypoglycemic episode. Arrived awake after given D10 by [employer]. able to eat here to increase her BS. Labs all returned within her baseline including mild anemia and CKD. UA positive. Patient given quan of keflex . Discharged home with family who state they can monitor her BS at home. Instructed to follow up with the family doctor Lab Data Labs: Lab Results 04/21/25 04/21/25 04/21/25 Range/Units 21:30 22:10 22:15 WBC 9.3 (4.0-11.0) 10^3/uL RBC 3.46 L (4.20-5.40) 10^6/uL Hgb 10.6 L (12.0-16.0) g/dL Hct 31.4 L (36.0-48.0) % MCV 90.8 (81.0-99.0) fL MCH 30.6 (26.7-34.0) pg MCHC 33.8 (29.9-35.2) g/dL RDW 15.4 H (11.0-15.0) % Plt Count 195 (150-450) 10^3/uL MPV 9.4 L (9.5-13.5) fL Neut % (Auto) 63.4 (43.0-75.0) % Lymph % (Auto) 21.3 (20.5-60.0) % [place] % (Auto) 13.7 H (1.7-12.0) % Eos % (Auto) 1.1 (0.9-7.0) % Baso % (Auto) 0.3 (0.2-2.0) % Neut # (Auto) 5.9 (1.4-6.5) 10^3/uL Lymph # (Auto) 2.0 (1.2-3.8) 10^3/uL [place] # (Auto) 1.3 H (0.3-0.8) 10^3/uL Eos # (Auto) 0.1 (0.0-0.7) 10^3/uL Baso # (Auto) 0.0 (0.0-0.1) 10^3/uL Abs Immat Gran (auto) 0.02 (0.00-0.03) 10^3/uL Imm/Tot Granulo (auto) 0.2 (0.0-0.5) % Sodium 141 (136-145) mmol/L Potassium 3.5 (3.5-5.1) mmol/L Chloride 102 (98-107) mmol/L Carbon Dioxide 25.0 (21.0-32.0) mmol/L Anion Gap 17.5 BUN 43.0 H (7.0-18.0) mg/dL Creatinine 1.92 H (0.55-1.02) mg/dL Est GFR ( Amer) 30 L (>=60 mL/min/1.73m^2) Est GFR (Non-Af Amer) 25 L (>=60 mL/min/1.73m^2) BUN/Creatinine Ratio 22.4 Glucose 60 L (74-106) mg/dL Calcium 9.4 (8.5-10.1) mg/dL Troponin I High Sens 11.0 (4.0-51.3) pg/mL NT-Pro-B Natriuret Pep 1188.0 (<=1800.0) pg/mL Urine Color Lt. yellow (YELLOW) Urine Clarity Clear (CLEAR) Urine pH 5.5 (5.0-9.0) Ur Specific [place] 1.015 (1.005-1.025) Urine Protein 30 A (NEG/TRACE) mg/dL Urine Glucose (UA) Negative (NEGATIVE) mg/dL Urine Ketones Negative (NEGATIVE) mg/dL Urine Occult Blood Negative (NEGATIVE) Urine Nitrite Positive A (NEGATIVE) Urine Bilirubin Negative (NEGATIVE) Urine Urobilinogen 0.2 (0.2-1.0) EU/dL Ur Leukocyte Esterase Moderate A (NEGATIVE) Urine RBC None seen (0-2) #/HPF Urine WBC 10-20 A (NONE SEEN) #/HPF Ur Squamous Epith Cells Rare (NONE/RARE) #/LPF Urine Crystals None seen (None Seen) #/HPF Urine Bacteria Large A (NONE SEEN) #/HPF Urine Casts None seen (NONE SEEN) #/LPF Urine Mucus None seen (NONE SEEN) Ur [place] [place] Glucose 110 H (74-106) mg/dL Discharge Plan Discharge Chief Complaint: Recheck/Abnormal Lab/Rx Clinical Impression: Acute UTI (urinary tract infection), Hypoglycemia Patient Disposition: Home, Self-Care Prescriptions / Home Meds: No Action carvedilol 25 mg Tablet 25 mg PO BIDWM@0700,1900 Qty: 60 0RF clonidine HCl 0.1 mg Tablet 0.1 mg PO Q4H PRN (Reason: Hypertension) Qty: 60 11RF hydralazine 25 mg Tablet 25 mg PO TID Qty: 90 11RF liothyronine 5 mcg Tablet 5 mcg PO ACB Qty: 60 0RF aspirin 81 mg Tablet,Chewable 81 mg PO QD Qty: 30 11RF levothyroxine 100 mcg capsule 100 mcg PO DAILY Qty: 30 11RF isosorbide mononitrate 120 mg tablet extended release 24 hr 120 mg PO QAM Qty: 30 11RF atorvastatin 80 mg tablet 80 mg PO .QHS insulin aspart U-100 [Novolog FlexPen U-100 Insulin] 100 unit/mL (3 mL) insulin pen 12 unit SUBCUT DAILY Rx Instructions: 12 units am, 16units at lunch and 22 units in pm magnesium oxide 400 mg (241.3 mg magnesium) tablet 400 mg PO TID pantoprazole 40 mg tablet,delayed release (DR/EC) 40 mg PO .QD ferrous sulfate 325 mg (65 mg iron) tablet 325 mg PO BID furosemide 20 mg tablet 20 mg PO DAILY Levemir FlexPen 100 unit/mL (3 mL) Insulin Pen 26 unit subcut BID Qty: 15 11RF cefdinir 300 mg capsule 600 mg PO Q12H Patient Comments: last dose this AM allopurinol 100 mg Tablet 50 mg PO QDAY ondansetron HCl 4 mg tablet 4 mg PO Q6H PRN (Reason: nausea and vomiting) Qty: 12 0RF Print Language: Indonesian Instructions: Hypoglycemia in a Person with Diabetes (DC), Urinary Tract Infection in Older Adults (ED) Additional Instructions: monitor blood sugar closely at home and follow up with Dr Rubi next couple of days Referrals: Merrick Rubi MD [Primary Care Provider, Family Practice] - 1 week
[2025-04-21 21:28] VITALS: BP 182/78
[2025-04-21 21:47] LABS: Hematocrit 31.4 % (36.0-48.0); Hemoglobin 10.6 g/dL (12.0-16.0); Immature Granulocytes Abs Auto 0.02 10^3/uL (0.00-0.03); Immature Granulocytes Pct Auto 0.2 % (0.0-0.5); Lymphocytes Absolute Auto 2.0 10^3/uL (1.2-3.8); Mean Corpuscular HGB Conc 33.8 g/dL (29.9-35.2); Mean Corpuscular Hemoglobin 30.6 pg (26.7-34.0); Mean Corpuscular Volume 90.8 fL (81.0-99.0); Platelet Count 195 10^3/uL (150-450); Red Blood Count 3.46 10^6/uL (4.20-5.40); White Blood Count 9.3 10^3/uL (4.0-11.0)
[2025-04-21 22:08] LABS: Anion Gap 17.5; Blood Urea Nitrogen 43.0 mg/dL (7.0-18.0); Calcium 9.4 mg/dL (8.5-10.1); Carbon Dioxide 25.0 mmol/L (21.0-32.0); Chloride 102 mmol/L (98-107); Estimated GFR (African America 30 (>=60 mL/min/1.73m^2); Estimated GFR (Non-African Ame 25 (>=60 mL/min/1.73m^2); Glucose 60 mg/dL (74-106); Potassium 3.5 mmol/L (3.5-5.1); Sodium 141 mmol/L (136-145)
[2025-04-21 22:43] LABS: Glucose Urine UA NEGATIVE (NEGATIVE)
[2025-04-21 22:50] LABS: Cast Seen? NONE SEEN #/LPF (NONE SEEN); Crystals Seen? None Seen #/HPF (None Seen); Urine Culture Indicated YES-FRMC
[2025-04-21 23:12] LABS: NT Pro B Type Natriuretic Pept 1188.0 pg/mL (<=1800.0)
[2025-04-21] MEDS: CEPHALEXIN 500 MG CAPSULE PO (23:31)
[2025-04-21 23:35] VITALS: BP 168/78
== END 2025-04-21 23:57 | disposition home or self-care (01) ==
PROVIDERS: Emergency Provider Internal Medicine; PCP Family Medicine
DX: N39.0 Urinary tract infection, site not specified (principal); E11.649 Type 2 diabetes mellitus with hypoglycemia without coma; Z79.4 Long term (current) use of insulin; Z95.1 Presence of aortocoronary bypass graft; Z90.49 Acquired absence of other specified parts of digestive tract; Z90.710 Acquired absence of both cervix and uterus; Z87.891 Personal history of nicotine dependence; I50.30 Unspecified diastolic (congestive) heart failure
CPT/HCPCS: 36415; 71045; 80048; 81001; 83880; 84484; 85025; 87086; 87088; 87186; 99285

== ENCOUNTER 2025-04-30 19:11 | Emergency (ER) | payer MEDICARE, SELFPAY ==
--- OUTSIDE RECORDS SUMMARY | 2025-04-26 16:09 | XMS_ITS ---
Author Organization [facility] in [place] Address [address] [place] [address] Care Team Providers Care Deputy [employer] Marshal Name Role Phone Jeff Rubi Primary Care Provider Medications Medication SIG (Take, Route, Fr equency, Duration) Notes Start Date End Date Status Macrobid 100 MG 1 capsule with food Orally every 12 hrs for 5 day(s) 04/26/2025 Active Encounters Encounter Location Date Provider Diagnosis [facility] ([place], [place]) [address] [place] [address] 04/26/2025 Jeff Rubi Plan Of Treatment Medication Medication Name Sig Start Date Stop Date Notes Macrobid 100 MG 1 capsule with food Orally every 12 hrs for 5 day(s) 04/26/2025 Progress Notes * LOBITO LandryHandyOB:1945 (79 yo F)Acc No.[id number]:04/26/2025 Patient: Mercedez MEAD :1945 A ge:79 Y S ex:Female Address:[address] [place] [address] [address], [place] [address] * Refills Start Macrobid Capsule, 100 MG, Orally, 10, 1 capsule with food, every 12 hrs, 5 day(s) * true * Date: Generated for Printi ng/Faxing/eTransmitting on: 0 04/30/2025 07:16 PM EDT
--- OUTSIDE RECORDS SUMMARY | 2025-04-27 07:47 | XMS_ITS ---
Author Organization [facility] in [place] Address [address] [place] [address] Care Team Providers Care Form Tamping Machine Operator Name Role Phone Jeff Rubi Primary Care Provider REASON FOR VISIT Diflucan Medications Medication SIG (Take, Route, Fr equency, Duration) Notes Start Date End Date Status Diflucan 100 MG 1 tablet Orally daily for 10 days 04/27/2025 Active Encounters Encounter Location Date Provider Diagnosis [facility] [address] [place] [address] 04/27/2025 Jeff Rubi Plan Of Treatment Medication Medication Name Sig Start Date Stop Date Notes Diflucan 100 MG 1 tablet Orally daily for 10 days 04/27/20 Progress Notes * LOBITOLandry CHOIHandyOB:1945 (79 yo F)Acc No.[id number]:04/27/2025 Patient: Mercedez MEAD :1945 A ge:79 Y S ex:Female Address:[address] [place] [address] [address], [place] [address] * Refills Start Diflucan Tablet, 100 MG, Orally, 10 Tablet, 1 tablet, daily, 10 days, Refills=1 * true * Date: Generated for Printi ng/Faxing/eTransmitting on: 0 04/30/2025 07:16 PM EDT
--- OUTSIDE RECORDS SUMMARY | 2025-04-29 11:00 | XMS_ITS ---
Author Organization [facility] [place] Address [address] [place] [address] Care Team Providers Care Air Value Tester Name Role Phone Jeff Rubi Primary Care Provider Allergies Allergen (clinical drug ingredient) Drug/Non Drug Allergy documented on EMR Reaction Allergy Type Onset Date Status amoxicillin / clavulanate Augmentin Unknown Drug Allergy Active sulfamethoxazole / trimethoprim Bactrim Unknown Drug Allergy Active doxazosin Cardura Unknown Drug Allergy Active amlodipine Norvasc Unknown Drug Allergy Active REASON FOR VISIT Synvisc injection in the right knee, Pain has been ongoing Medications Medication SIG (Take, Route, Frequency, Duration) Notes Start Date End Date Status OneTouch Ultra Test test blood glucose d aily for 90 days Active OneTouch Ultra Blue Active Synvisc One 48 MG/6ML Inject Intra-artic ular In right knee for 180 days 04/20/2025 Active Pantoprazole Sodium 40 mg TAKE 1 TABLET BY MOUTH DAILY for 90 Active Tresiba FlexTouch 100 UNIT/ML 30 units Subcutaneous Twice Daily Active OneTouch Ultra 2 Act janet NovoLOG FlexPen 100 UNIT/ML 12 in mornin g, 16 at lunch, 22 at supper Subcutaneous Active Macrobid 100 MG 1 capsule with food Orally every 12 hrs for 5 day(s) 04/26/2025 Active Nitroglycerin 0.4 MG as directed Sublingual PRN Active Magnesium Oxide 400 MG 1 tablet Orally t hree times daily Active Lancets Super Thin A ctive Levothyroxine Sodium 100 mcg TAKE 1 TABLET BY MOUTH IN THE MORNING ON AN EMPTY STOMACH for 90 Active Lasix 20 MG 1 tablet Orally Once a day Active Lipitor 80 MG 1 tablet Orally Once a day Active Liothyronine Sodium 5 mcg Take 1 tablet orally once daily for 30 days Active hydrALAZINE HCl 50 MG 1 tablet with food Orally Three times a day Active Ferrous Sulfate 325 (65 Fe) MG 1 tablet Orally Twice Daily Active Isosorbide Mononitrate ER 120 MG 1 tablet Oral once daily for 30 days Active Diflucan 100 MG 1 tablet Orally bebo y for 10 days 04/22/2025 Active Allopurinol 300 MG 1 tablet Orally Once a day for 30 days Active Accu-Chek Holly Plus w/Device as directed Active Carvedilol 25 mg TAKE 1 TABLET BY CHA TH TWICE DAILY (7AM and 7PM) WITH FOOD for 30 Active Aspirin 81 81 MG 1 tablet Orally Once a day Active cloNIDine HCl 0.1 MG 1 tablet every four hours as needed Orally Q4 for 30 days As needed Active Social History Tobacco Use: Social History Observation Description Date Details (start date - stop date) Never Smoker NA - NA Tobacco Use/Smoking Question Answer Notes Patient is a nonsmoker Problems Problem Type SNOMED Code ICD Code Onset Dates Problem Status W/U Status Risk Notes Problem Osteoarthritis of knee (126282395) Osteoarthritis of knee (M17.9) Active confirmed Problem Osteoarthritis of knee (761592075) Osteoarthritis of right knee (M17.11) Active confirmed Vital Signs Height 66 in 04/29/2025 Blood pressure systolic 164 mm Hg 04/29/20 25 Blood pressure diastolic 78 mm Hg 025 Encounters Encounter Location Date Provider Diagnosis [facility] [address] [place] [address] 04/29/2025 Jeff Greyson Hypertension I10 and Osteoarthritis of right knee M17.11 Assessments Encounter Date Diagnosis (ICD Code) Assessment Notes Treatment Notes Treatment Clinical Notes Section Notes 04/29/2025 Hypertension (ICD-10 - I10) up alittel bit - discussed diet cahnges - keep with meds 04/29/2025 Osteoarthritis of right knee (ICD-10 - M17.11) 04/29/2025 Other Synvisc today Plan Of Treatment Treatment Notes Assessment Notes Hypertension up alittel bit - dis cussed diet cahnges - keep with meds Other Synvisc today Medications Administered Medication Instructions Date of Administration Dosage Notes Synvisc One 04/29/2025 6 mL Procedure Notes * Category Sub-Category Detail Notes Synvisc Injection, Right Knee Procedure Th e right knee was prepped in the usual sterile fashion using betadine and alcohol. A 25-guage, 3 1/2-inch needle was used to locally anesthetize the skin, subcutaneous tissues, and joint capsule with a 4:1 mixture of 1% lidocaine and sodium bicarbonate. I then inserted an 18-guage, 1 1/2-inch needle into the knee joint using a medial approach. Once within the knee joint ?? ccs of straw-colored fluid was aspirated from the joint. After aspiration of the joint was complete, the syringe was removed from the needle, leaving the needle within the joint. Through this needle I injected 2 cc of Synvisc with no substantial resistance. The needle was removed and a sterile dressing was applied, -- LATERAL APPROACH --, After discussing benefits and possible side effects of the procedure, the patient was placed on the examination table in a supine position with a folded sheet under the knee for positioning Post-procedure NO bleeding - no tomas ge in pain - pt able to ambulate Progress Notes * Garima ROBINeDOB:1945 (79 yo F)Acc No.[id number]:04/29/2025 UNLOCKED PROGRESS NOTE Progress Note Patient: Mercedez MEAD Provider: Ian Rubi ([facility])MD :1945 A ge:79 Y S ex:Female Date:04/29/2025 Address:[address] [place], [place] [id number] Check In:02:46 PM ESTCheck O ut:03:19 PM EST Subjective: * Chief Complaints: * 1 . Synvisc injection in the right knee. 2. Pain has been ongoing. * HPI: G eneral: BP up sl - may be re;ated to knee pain here also for Synvix injection. I nterim History: Patient presents for high blood pressure check. Doing well on medication. Denies chest pain, palpitations, lightheadedness, or vision changes. * ROS: G eneral/Constitutional: Lightheadedness d enies. F ever d enies. H eadache d enies. C ardiovascular: Chest pain d enies. P alpitations d enies. ? R espiratory: Cough d enies. S hortness of breath d enies. ? * Medical History: A cute bronchitis, At risk for falls, Collapsed vertebra, not elsewhere classified, lumbar region, subsequent encounter for fracture with delayed healing, Other low back pain, Over weight, Vaginal discharge, COVID-19, Acute sinusitis, Unstable angina, Paroxysmal atrial fibrillation, 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, Coronary artery disease, Pneumonia due to Coronavirus disease 2018, Hyperkalemia, Type 2 diabetes mellitus 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, bilateral, Arthritis, Chronic kidney disease, stage 4 (severe), Diabetes mellitus type 2 with peripheral artery disease, Hypertensive urgency, Dyspnea, Low back pain, unspecified, Unilateral primary osteoarthritis, left knee, Cataract, Chest pain, Gout, Osteopenia, Edema, Allergic rhinitis, Ventricular hypertrophy, Primary hypothyroidism, Hyperlipidemia, Hypertension, Mitral regurgitation, Mitral insufficiency, Diabetic retinopathy, Fe deficiency anemia, GERD (gastroesophageal reflux disease), Grade1 diastolic dysfunction, Left atrium mildly dilated. * Surgical History: C ataract OU , Sinus surgery , Bilat shoulder scope , Open heart , Gallbladder , Hysterectomy . * Hospitalization/Major Diagno stic Procedure: S EE ABOVE , Hypertension 12/2023, hypertension 01/2024, HTN 02/2024. * Family History: F ather: , diagnosed with Other malignant neoplasm of unspecified site, Diabetes mellitus without mention of complication, type II or unspecified type, not stated as uncontrolled, Unspecified essential hypertension. M other: , diagnosed with Other malignant neoplasm of unspecified site, Diabetes mellitus without mention of complication, type II or unspecified type, not stated as uncontrolled, Unspecified essential hypertension. B rother(s): alive, open heart surgery,, diagnosed with Unspecified heart disease. S ister(s): alive, diagnosed with Unspecified heart disease. S on(s): alive. D aughter(s): alive. 5 brother(s) , 2 sister(s) . 1 son(s) , 3 daughter(s) . . * Social History: T obacco Use: T obacco Use/Smoking P atient is a n onsmoker * Medications: T aking Accu-Chek Holly Plus(Blood Glucose Monitoring Suppl) w/Device Kit as directed , Taking Allopurinol 300 MG Tablet 1 tablet Orally Once a day , Taking Aspirin 81(Aspirin) 81 MG Tablet Delayed Release 1 tablet Orally Once a day , Taking Carvedilol 25 mg Tablet TAKE 1 TABLET BY MOUTH TWICE DAILY (7AM and 7PM) WITH FOOD , Taking cloNIDine HCl 0.1 MG Tablet 1 tablet every four hours as needed Orally Q4 As needed, Taking Diflucan(Fluconazole) 100 MG Tablet 1 tablet Orally daily , Taking Ferrous Sulfate 325 (65 Fe) MG Tablet 1 tablet Orally Twice Daily , Taking hydrALAZINE HCl 50 MG Tablet 1 tablet with food Orally Three times a day , Taking Isosorbide Mononitrate ER 120 MG Tablet Extended Release 24 Hour 1 tablet Oral once daily , Taking Lancets Super Thin , Taking Lasix(Furosemide) 20 MG Tablet 1 tablet Orally Once a day , Taking Levothyroxine Sodium 100 mcg Tablet TAKE 1 TABLET BY MOUTH IN THE MORNING ON AN EMPTY STOMACH , Taking Liothyronine Sodium 5 mcg Tablet Take 1 tablet orally once daily , Taking Lipitor(Atorvastatin Calcium) 80 MG Tablet 1 tablet Orally Once a day , Taking Macrobid(Nitrofurantoin Monohyd Macro) 100 MG Capsule 1 capsule with food Orally every 12 hrs , Taking Magnesium Oxide 400 MG Tablet 1 tablet Orally three times daily , Taking Nitroglycerin 0.4 MG Tablet Sublingual as directed Sublingual , Notes to Pharmacist: PRN, Taking NovoLOG FlexPen(Insulin Aspart) 100 UNIT/ML Solution Pen-injector 12 in morning, 16 at lunch, 22 at supper Subcutaneous , Taking OneTouch Ultra 2 , Taking OneTouch Ultra Blue , Taking OneTouch Ultra Test test blood glucose daily , Taking Pantoprazole Sodium 40 mg Tablet Delayed Release TAKE 1 TABLET BY MOUTH DAILY , Taking Synvisc One(Hylan G-F 20) 48 MG/6ML Solution Prefilled Syringe Inject Intra-articular In right knee , Taking Tresiba FlexTouch(Insulin Degludec) 100 UNIT/ML Solution Pen-injector 30 units Subcutaneous Twice Daily , Discontinued Diflucan(Fluconazole) 100 MG Tablet 1 tablet Orally daily , Medication List reviewed and reconciled with the patient * Allergies: N orvasc, Cardura, Augmentin, Bactrim. Objective: * Vitals: W t: Not Taken - Declined by Patient, Ht: 66 in, BP:164/78mm Hg, Ht-cm: 167.64 cm. * Examination: G eneral Examination: GENERAL APPEARANCE: in no acute distress, well developed, well nourished. LUNGS: clear to auscultation bilaterally. CARDIO: regular rate and rhythm, S1, S2 normal, no murmurs. Knees R knee injection synvisc - no erythema - no calor - no dolor. Assessment: * Assessment: 1. H ypertension - I10 (Primary) 2 . O steoarthritis of right knee - M17.11? Plan: * Treatment: 2. O thers Notes: Synvisc today * Procedures: S ynvisc Injection, Right Knee: Procedure T he right knee was prepped in the usual sterile fashion using betadine and alcohol. A 25-guage, 3 1/2-inch needle was used to locally anesthetize the skin, subcutaneous tissues, and joint capsule with a 4:1 mixture of 1% lidocaine and sodium bicarbonate. I then inserted an 18-guage, 1 1/2-inch needle into the knee joint using a medial approach. Once within the knee joint ?? ccs of straw-colored fluid was aspirated from the joint. After aspiration of the joint was complete, the syringe was removed from the needle, leaving the needle within the joint. Through this needle I injected 2 cc of Synvisc with no substantial resistance. The needle was removed and a sterile dressing was applied, -- LATERAL APPROACH --, After discussing benefits and possible side effects of the procedure, the patient was placed on the examination table in a supine position with a folded sheet under the knee for positioning. Post-procedure N O bleeding - no hange in pain - pt able to ambulate. * Therapeutic Injections: Synvisc One 6mL/Syringe : 6 mL (Route: Other/Miscellaneous) given by Jeff Rubi MD on Knee Joint Rt * Procedure Codes: J 7325 SYNVISC INJECTION, Units: 48.00 , [address] ASPIRINJ. MAJOR WO * * Electronic signature of Jeff Rubi MD, [id number] on 04/30/2025 at 07:16 PM EDT Sign off status: Pending Visit Status: C HK (Check Out) * Provider: Ian Rubi ([facility])MD Date: 0 04/29/2025 Generated for Petar alcala/Candie/eTransmitting on: 0 04/30/2025 07:16 PM EDT History and Physical Notes * HPI (History of Present Illness) Category Sub-Category Detail Notes Category Not es General BP up sl - may be re;ated to knee pain here also for Synvix injection Examination Category Sub-Category Detail Notes Category Not es General Examination GENERAL APPEARANCE: in no ac daljit distress, well developed, well nourished CARDIO: regular rate and rhy thm, S1, S2 normal, no murmurs LUNGS: clear to auscultatio n bilaterally Knees R knee injection syn visc - no erythema - no calor - no dolor
--- OUTSIDE RECORDS SUMMARY | 2025-04-30 19:16 | XMS_ITS | Encounter Summary ---
Author Organization [facility] tem Address [facility] [id number] [address] [place] [address] Care Team Providers Care Coin Box Collector Name Role Phone Merrick Rubi MD Primary Care Provider [phone] Reason for Visit * Reason Onset Date Comments Results 01/17/2021 Encounter Details Date Type Department Care Team (Late st Contact Info) Description 01/17/2021 Telephone [facility] [address] [place] [address] Linda Gonzalez, JUANPABLO Results Social [...] often do you attend chur ch or christian services? More than 4 times per year 12/28/2020 Do you belong to any clubs o r organizations such as latter-day groups, unions, fraternal [...] Answer Date Recorded Total Score 0 12/28/2020 [facility] Occupat ional Health - Occupational [...] - 146 mmol/L 01/30/2021 2:48 PM EDT [facility] Potassium, Bld 4.2 3.5 - 5.0 mmol/L 01/30/2021 2:48 PM EDT [facility] Chloride 98 98 - 109 mmol/L 01/30/2021 2:48 PM EDT [facility] CO2 24 22 - 32 mmol/L 01/30/2021 2:48 PM EDT [facility] Anion gap 13 5 - 15 mmol/L 01/30/2021 2:48 PM EDT [facility] BUN 53(H) 5 - 27 mg/dL 01/30/2021 2:48 PM EDT [facility] Creatinine 1.90(H) 0.40 - 1.00 mg/dL 01/30/2021 2:48 PM EDT [facility] Comment:METHOD TRACEABLE TO IDMS STANDARD Glucose 222(H) 65 - 99 mg/dL 01/30/2021 2:48 PM EDT [facility] Calcium 9.7 8.5 - 10.5 mg/dL 01/30/2021 2:48 PM EDT [facility] GFR MDRD Non Af Amer 26(L) >59 ml/min/1.7 3sq.m 01/30/2021 2:48 PM EDT [facility] GFR MDRD Af Amer 31(L) >59 ml/min/1.7 3sq.m 01/30/2021 2:48 PM EDT [facility] Serum / Unknown 01/30/2021 8:27 AM EDT 01/30/2021 8:28 AM EDT us Marie Garcia NIGHT CLUB MANAGER-MANAGER STORY LAB BLOOD ORDERABLES Final Result [facility] [address] [place] [address] documented in this encounter Visit Diagnoses Diagnosis Paroxysmal atrial fibrillation ([facility])- Primary Atrial fibrillation Unstable angina ([facility]-HCC) Intermediate coronary syndrome documented in this encounter Additional Health Concerns Assessment Noted Time PHQ-9 Depression Total Score: 0 12/29/19 21 3:16 PM EDT documented as of this encounter Care Teams Coin Box Collector Relationship Specialty Start Date End Date Merrick Rubi MD PCP - General Family Medicine 10/20/20 documented as of this encounter
--- OUTSIDE RECORDS SUMMARY | 2025-04-30 19:16 | XMS_ITS | Encounter Summary ---
Author Organization [facility] Address [id number] [address] [place] [address] Care Team Providers Care Scenic Designer Name Role Phone Merrick Rubi MD Primary Care Provider [phone] Encounter Details Date Type Department Care Team (Late st Contact Info) Description 12/16/2020 Orders Only [facility] [address] [place] [phone] External, Scanning Provider Social History Tobacco Use [...] on filedocumented in this encounter Care Teams Scenic Designer Relationship Specialty Start Date End Date Merrick Rubi MD PCP - General Family Medicine 10/20/20 documented as of this encounter
--- OUTSIDE RECORDS SUMMARY | 2025-04-30 19:16 | XMS_ITS | Encounter Summary ---
Author Organization [facility] Address [id number] [address] [place] [address] Care Team Providers Care Affiliate Marketing Manager Name Role Phone Merrick Rubi MD Primary Care Provider [phone] Encounter Details Date Type Department Care Team (Late st Contact Info) Description 01/17/2024 Orders Only [facility] [address] [place] [phone] External, Scanning Provider Social History Tobacco Use [...] often do you attend chur ch or presybeterian services? More than 4 times per year 12/28/2020 Do you belong to any clubs o r organizations such as scientology groups, unions, fraternal [...] Answer Date Recorded Total Score 0 12/28/2020 [facility] of Occupat ional Health - Occupational [...] Recorded Do you need help finding a [employer] career center and/or a training program? No [...] L ORDERABLES Final Result Performing Organization Address [facility] Phone Number MANUALLY TRANSCRIBED RESULTS * ECG 12 lead (01/01/2024 9:50 AM EDT) us Scanning Provider External ECG ORDERABLES Final Result Performing Organization Address [facility] Phone Number MANUALLY TRANSCRIBED RESULTS * Multiple labs (01/01/2024 9:11 AM EDT) us Scanning Provider External [place] [facility] Final Result Performing Organization Address [facility] de Phone Number MANUALLY TRANSCRIBED RESULTS * Multiple labs (01/01/2024 8:52 AM EDT) us Scanning Provider External [place] Final Result Performing Organization Address [facility] de Phone Number MANUALLY TRANSCRIBED RESULTS * ECG 12 lead (12/31/2023 9:48 AM EDT) us Scanning Provider External ECG ORDERABLES Final Result Performing Organization Address [facility] de Phone Number MANUALLY TRANSCRIBED RESULTS * Urinalysis (12/31/2023 9:10 AM EDT) us Scanning Provider External URINE ORDERABLES Pamella l Result Performing Organization Address [facility] Phone Number MANUALLY TRANSCRIBED RESULTS * Multiple labs (12/31/2023 8:51 AM EDT) us Scanning Provider External [place] [facility] Final Result Performing Organization Address [facility] Phone Number MANUALLY TRANSCRIBED RESULTS * CT [...] ECG ORDERABLES Final Result Performing Organization Address [facility] Phone Number MANUALLY TRANSCRIBED RESULTS * Multiple labs (12/30/2023 8:50 AM EDT) us Scanning Provider External [place] [facility] Final Result Performing Organization Address [facility] de Phone Number MANUALLY TRANSCRIBED RESULTS documented in this encounter Visit Diagnoses Not on filedocumented in this encounter Additional Health Concerns Assessment Noted Time PHQ-9 Depression Total Score: 0 12/29/19 21 3:16 PM EDT documented as of this encounter Care Teams Affiliate Marketing Manager Relationship Specialty Start Date End Date Merrick Rubi MD PCP - General Family Medicine 10/20/20 documented as of this encounter
--- OUTSIDE RECORDS SUMMARY | 2025-04-30 19:16 | XMS_ITS | Encounter Summary ---
Author Organization [facility] tem Address [id number] [address] [place] [address] Care Team Providers Care Moulder Operator Name Role Phone Merrick Rubi MD Primary Care Provider [phone] Encounter Details Date Type Department Care Team (Late st Contact Info) Description 11/23/2020 Orders Only [facility] [address] [place] [phone] External, Scanning Provider Social History Tobacco Use [...] Date/Time Associated Diagnosis Comments MULTIPLE LABS Routine 11/21/2020 ECHO COMPLETE WO CONTRAST Routine 11/18/2020 ECG 12-LEAD Routine 11/18/2020 documented in this encounter Results * Multiple labs (11/21/2020) us Scanning Provider External [place] IMAGING Final Result MANUALLY TRANSCRIBED RESULTS * Echo complete W/O contrast (11/18/2020) Anatomical Region Laterality Modality Chest N/A Ultrasound us Scanning Provider External CV ECHO ORDERABLES Fi nal Result * ECG 12 lead (11/18/2020) us Scanning Provider External ECG ORDERABLES Final Result Performing Organization Address [facility] de Phone Number MANUALLY TRANSCRIBED RESULTS documented in this encounter Visit Diagnoses Not on filedocumented in this encounter Care Teams Moulder Operator Relationship Specialty Start Date End Date Merrick Rubi MD PCP - General Family Medicine 10/20/20 documented as of this encounter
--- OUTSIDE RECORDS SUMMARY | 2025-04-30 19:16 | XMS_ITS | Encounter Summary ---
Author [facility] Address [id number] [address] [place] [address] Care Team Providers Care Sew Out Operator Name Role Phone Merrick Rubi MD Primary Care Provider [phone] Encounter Details Date Type Department Care Team (Late st Contact Info) Description 01/12/2021 Orders Only [facility] [address] [phone] External, Scanning Provider Social History Tobacco Use [...] often do you attend chur ch or evangelical services? More than 4 times per year 12/28/2020 Do you belong to any clubs o r organizations such as restoration groups, unions, fraternal [...] Answer Date Recorded Total Score 0 12/28/2020 [facility] of Occupat ional Health - Occupational Stress [...] Recorded Do you need help finding a [facility] career center and/or a training program? No [...] documented as of this encounter Care Teams Sew Out Operator Relationship Specialty Start Date End Date Merrick Rubi MD PCP - General Family Medicine 10/20/20 documented as of this encounter
--- OUTSIDE RECORDS SUMMARY | 2025-04-30 19:16 | XMS_ITS | Encounter Summary ---
Author Organization [facility] Address [facility] [id number] [address] [place] [address] Care Team Providers Care Pneumatic Press Hand Name Role Phone Merrick Rubi MD Primary Care Provider [phone] Reason for Visit * Reason Onset Date Comments Status Post Cath 12/29/2020 Encounter Details Date Type Department Care Team (Late st Contact Info) Description 12/29/2020 Telephone [facility] [address] [place] [phone] Kassie Graham MD [address] [place], [place] [phone] Status Post Cath Social History Tobacco Use [...] How often do you attend chur or voodoo services? More than 4 times per year 12/28/2020 Do you belong to any clubs o r organizations such as caodaism groups, unions, fraternal or athletic groups, or [...] Date Recorded Total Score 0 12/28/2020 [facility] of Occupat ional Health - [...] Recorded Do you need help finding a [facility] career center and/or a training [...] list: Pt had cath w/ [facility] @ [facility] where pt is currently admitted. Will [...] documented as of this encounter Care Teams Pneumatic Press Hand Relationship Specialty Start Date End Date Merrick Rubi MD PCP - General Family Medicine 10/20/20 documented as of this encounter
--- OUTSIDE RECORDS SUMMARY | 2025-04-30 19:17 | XMS_ITS | Encounter Summary ---
Author Organization [facility] Address [id number] [address] [place] [address] Care Team Providers Care Gastroenterology Technician Name Role Phone Merrick Rubi MD Primary Care Provider [phone] Encounter Details Date Type Department Care Team (Late st Contact Info) Description 07/08/2023 Orders Only [facility] [address] [place] [phone] External, Scanning Provider Social History Tobacco Use [...] often do you attend chur ch or rastafarian services? More than 4 times per year 12/28/2020 Do you belong to any clubs o r organizations such as episcopalian groups, unions, fraternal or athletic groups, or [...] Answer Date Recorded Total Score 0 12/28/2020 [facility] Occupat ional Health - Occupational Stress [...] <enter goal here> General Yes [place], Dione, NUT SHELLER Note: Evaluation of progress towards goal: return home with homecare and support from [facility], children and grandchildren documented as of this encounter Procedures Procedure Name Priority Date/Time Associated Diagnosis Comments MULTIPLE LABS Routine 07/08/2023 LIPID PROFILE Routine 07/08/2023 documented in this encounter Results * Multiple labs (07/08/2023) us Scanning Provider External [place] IMAGING Edite d Result - Final Performing Organization Address [facility] Co de Phone Number MANUALLY TRANSCRIBED RESULTS [...] Edited Result - Final Performing Organization Address [facility] Co de Phone Number MANUALLY TRANSCRIBED RESULTS documented in this encounter Visit Diagnoses Not on filedocumented in this encounter Additional Health Concerns Assessment Noted Time PHQ-9 Depression Total Score: 0 12/29/19 21 3:16 PM EDT documented as of this encounter Care Teams Gastroenterology Technician Relationship Specialty Start Date End Date Merrick Rubi MD PCP - General Family Medicine 10/20/20 documented as of this encounter
--- OUTSIDE RECORDS SUMMARY | 2025-04-30 19:17 | XMS_ITS | Clinical Summary ---
Author Organization [facility] Address [id number] [address] [place] [address] Care Team Providers Care Equipment Maintenance Tech Name Role Phone Merrick Rubi MD Primary Care Provider [phone] Allergies Active Allergy Reactions Criticality Noted Date [...] PCP in 1-2 weeks 1 Box 12 01/04/20 21 Active Additional Information Patient taking differently: Inject 50 units in the morning and 50 units at night- closely monitor blood sugars and follow up with your PCP in 1-2 weeks, Reported on 01/15/2022 acetaminophen (TYLENOL) 500 mg tablet Take 1 tablet (500 mg total) by mouth every 6 (six) hours as needed for pain. Active aspirin 81 mgIndications:Hype rtensive urgency,Shortness of breath,H/O four vessel coronary artery bypass graft,Atherosclero sis of [place] coronary artery of [place] heart without angina pectoris,Paroxysma l atrial fibrillation (CMS-HCC),Localize d edema Take 1 tablet (81 mg total) by mouth daily. 90 tablet 3 01/12/20 21 Active pantoprazole (PROTONIX) 40 mg EC tablet Take 1 tablet (40 mg total) by mouth in the morning. 12/20/19 21 Active allopurinoL (ZYLOPRIM) 300 mg tablet Take 1 tablet (300 mg total) by mouth in the morning. Active liothyronine (CYTOMEL) 5 MCG tablet Take 2 tablets (10 mcg total) by mouth in the morning. 12/06/19 22 Active lisinopriL (PRINIVIL,ZESTRIL) 20 mg tablet Take 1 tablet (20 mg total) by mouth in the morning. 01/17/20 24 Active carvediloL (COREG) 25 mg tabletIndications: Paroxysmal atrial fibrillation (CMS-HCC),H/O four vessel coronary artery bypass graft,Hypertensive urgency,Shortness of breath,Localized edema Take 2 tablets (50 mg total) by mouth in the morning and 2 tablets (50 mg total) before bedtime. 180 tablet 3 01/17/20 24 Active isosorbide mononitrate (IMDUR) 30 mg 24 hr tablet Take 1 tablet (30 mg total) by mouth daily. 90 tablet 3 01/17/20 24 Active magnesium oxide (MAGOX) 400 mg tabletIndications: Paroxysmal atrial fibrillation (CMS-HCC),Localize d edema TAKE 1 TABLET BY MOUTH THREE TIMES DAILY 45 tablet 03/12/20 25 Active atorvastatin (LIPITOR) 80 mg tabletIndications: Atherosclerosis of [place] coronary artery of [place] heart without angina pectoris,H/O four vessel coronary artery bypass graft,Hyperlipidem ia, unspecified hyperlipidemia type TAKE 1 TABLET BY MOUTH NIGHTLY 45 tablet 03/12/20 25 Active Active Problems Problem Noted Date Diagnosed Date Stage 4 chronic kidney disease 01/17/2024 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 01/17/2024 Other hyperlipidemia 01/15/2022 Class 1 obesity in adult 01/15/2022 Obesity (BMI 30-39.9) 05/11/2021 Essential hypertension 05/11/2021 Obesity (BMI 30-39.9) 01/11/2021 H/O four vessel coronary artery bypass graft 04/2021 Paroxysmal atrial fibrillation 01/11/2021 Atherosclerosis of [place] co ronary artery of [place] heart without angina pectoris 01/11/2021 Unstable angina 12/28/2020 Diabetes mellitus Hypertensive urgency Arthritis Dyspnea Other forms of angina pectoris Encounters Date Type Department Care Team Description 03/07/2025 Refill [facility] [address] [place] [phone] Marie Garcia, MECHANICAL MANUFACTURING ENGINEER-DEDRICK Med Refill from Last 3 Months Immunizations [...] often do you attend chur ch or religion services? More than 4 times per year 12/28/2020 Do you belong to any clubs o r organizations such as catholic groups, unions, fraternal or athletic groups, or [...] Answer Date Recorded Total Score 0 12/28/2020 [facility] Occupat ional Health - Occupational [...] Recorded Do you need help finding a l al career center and/or a training program? No [...] 2:33 PM 01/03/2021 7:38 PM Care Teams Equipment Maintenance Tech Relationship Specialty Start Date End Date Merrick Rubi MD PCP - General Family Medicine 10/20/20
--- OUTSIDE RECORDS SUMMARY | 2025-04-30 19:17 | XMS_ITS | Encounter Summary ---
Author Organization [facility] tem Address [id number] [address] [place] [address] Care Team Providers Care Apparatus Operator Name Role Phone Merrick Rubi MD Primary Care Provider [phone] Reason for Visit * Reason Onset Date Comments STAFF MESSAGE 01/03/2021 Encounter Details Date Type Department Care Team (Late st Contact Info) Description 01/03/2021 Telephone [facility] [address] [place] [phone] Fátima Hernandez MD [address] [place] [address] STAFF MESSAGE Social History Tobacco [...] often do you attend chur ch or hindu services? More than 4 times per year 12/28/2020 Do you belong to any clubs o r organizations such as christianity groups, unions, fraternal or athletic groups, or [...] Answer Date Recorded Total Score 0 12/28/2020 [facility] of Occupat ional Health - Occupational [...] Recorded Do you need help finding a [facility] career center and/or a training program? [...] documented as of this encounter Care Teams Apparatus Operator Relationship Specialty Start Date End Date Merrick Rubi MD PCP - General Family Medicine 10/20/20 documented as of this encounter
--- OUTSIDE RECORDS SUMMARY | 2025-04-30 19:18 | XMS_ITS | Encounter Summary ---
Author Organization [facility] Address [id number] [address] [place] [address] Care Team Providers Care Comptometrist Name Role Phone Merrick Rubi MD Primary Care Provider [phone] Encounter Details Date Type Department Care Team (Late st Contact Info) Description 12/28/2020 Orders Only [facility] [address] [place] [phone] External, Scanning Provider Social History Tobacco Use [...] often do you attend chur ch or restoration services? More than 4 times per year 12/28/2020 Do you belong to any clubs o r organizations such as samaritan groups, unions, fraternal or athletic groups, or [...] Answer Date Recorded Total Score 0 12/28/2020 [facility] of Occupat ional Health - [...] Recorded Do you need help finding a [facility] career [facility] and/or a training program? [...] documented as of this encounter Functional Status documented as of this encounter Plan of Treatment Not on file documented as of this encounter Procedures Procedure Name Priority Date/Time Associated Diagnosis Comments MULTIPLE LABS Routine 11/18/2020 MULTIPLE LABS Routine 11/17/2020 documented in this encounter Results * Multiple labs (11/18/2020) us Scanning Provider External ME IMAGING Final Result MANUALLY TRANSCRIBED RESULTS * Multiple labs (11/17/2020) us Scanning Provider External ME IMAGING Final Result Performing Organization Address [facility] Co de Phone Number MANUALLY TRANSCRIBED RESULTS documented in this encounter Visit Diagnoses Not on filedocumented in this encounter Additional Health Concerns Assessment Noted Time PHQ-9 Depression Total Score: 0 12/29/19 21 3:16 PM EDT documented as of this encounter Care Teams Comptometrist Relationship Specialty Start Date End Date Merrick Rubi MD PCP - General Family Medicine 10/20/20 documented as of this encounter
--- OUTSIDE RECORDS SUMMARY | 2025-04-30 19:18 | XMS_ITS | Encounter Summary ---
Author Organization [facility] Address [id number] [address] [place] [address] Care Team Providers Care Personnel Training Officer Name Role Phone Merrick Rubi MD Primary Care Provider [phone] Encounter Details Date Type Department Care Team (Late st Contact Info) Description 01/10/2022 Orders Only [facility] [address] [place] [phone] External, Scanning Provider Social History Tobacco Use [...] often do you attend chur ch or anabaptism services? More than 4 times per year 12/28/2020 Do you belong to any clubs o r organizations such as restorationist groups, unions, fraternal or athletic groups, or [...] Answer Date Recorded Total Score 0 12/28/2020 [facility] of Occupat ional Health - [...] Recorded Do you need help finding a [facility] career center and/or a [...] Multiple labs (11/01/2021) us Scanning Provider External [place] IMAG[facility] Final Result Performing Organization Address City/[facility]/ZIP Co de Phone Number MANUALLY TRANSCRIBED RESULTS documented in this encounter Visit Diagnoses Not on filedocumented in this encounter Additional Health Concerns Assessment Noted Time PHQ-9 Depression Total Score: 0 12/29/19 21 3:16 PM EDT documented as of this encounter Care Teams Personnel Training Officer Relationship Specialty Start Date End Date Merrick Rubi MD PCP - General Family Medicine 10/20/20 documented as of this encounter
--- OUTSIDE RECORDS SUMMARY | 2025-04-30 19:18 | XMS_ITS | Clinical Summary ---
Author Organization [facility] Address [address], [address] [place] [address] Care Team Providers Care Retail Loan Originator Assistant Name Role Phone Merrick Rubi MD Primary Care Provider [phone] Allergies Active Allergy Reactions Criticality Noted Date [...] mouth daily Active Multiple Vitamins-Minera ls (THERAPEUTIC MULTIVITAMIN-NH NERALS) tablet Take 1 tablet by mouth [...] of Treatment Not on file Insurance MEDICARE [facility] Advance Directives * Full Code (Latest Code Status on File) Date Activated Date Inactivated Comments 01/30/2016 1:33 PM 01/30/2016 4:23 PM * Full Code Date Activated Date Inactivated Comments 01/30/2016 12:27 PM 01/30/2016 1:33 PM Care Teams Retail Loan Originator Assistant Relationship Specialty Start Date End Date Merrick Rubi MD [address] [place] [address] PCP - General 01/17/16
--- OUTSIDE RECORDS SUMMARY | 2025-04-30 19:18 | XMS_ITS | Patient Health Record ---
Author Organization [facility] [place] in [place] Address [address] [place] [address] Care Team Providers [employer] Name Role Phone Jeff Rubi Primary Care Provider Allergies Allergen (clinical drug ingredient) Drug/Non Drug Allergy documented on EMR Reaction Allergy Type Onset Date Status amoxicillin / clavulanate Augmentin Unknown Drug Allergy Active sulfamethoxazole / trimethoprim Bactrim Unknown Drug Allergy Active doxazosin Cardura Unknown Drug Allergy Active amlodipine Norvasc Unknown Drug Allergy Active Results Component Value Reference Range Notes BNP Reviewed date:12/31/2024 08:41:15 PM Interpretation: Performing Lab: Notes/Report: [facility] , NT Pro B Type Natriuretic Pept 1558.0 <=1800.0 pg/mL Performing Lab: see note ML - [facility] LB CBC AUTO DIFF Reviewed date:12/31/2024 08:41:15 PM Interpretation: Performing Lab: Notes/Report: [facility] , White Blood Count 7.2 4.0-11.0 [...] Performing Lab: see note ML - [facility] LB PROF 14(COMP METB) Reviewed date:12/31/2024 08:41:15 PM Interpretation: Performing Lab: Notes/Report: [facility] , Sodium 138 136-145 mmol/L Potassium [...] Performing Lab: see note ML - [facility] LB BNP Reviewed date:05/28/2024 11:29:23 AM Interpretation: Performing Lab: Notes/Report: [facility] , NT Pro B Type Natriuretic Pept 1529.0 <=1800.0 pg/mL Performing Lab: see note ML - [facility] LB Troponin I High Sensitivity Reviewed date:05/28/2024 11:29:23 AM Interpretation: Performing Lab: Notes/Report: [facility] , Troponin I High Sensitivity 8.5 4.0-51.3 pg/mL HAS BEEN CONFIRMED THE DECISION THRESHOLD FOR CO USED IN ISOLATION BUT SHOULD BE INTERPRETED IN CONJUNCTION WITH OTHER DIAGNOSTIC AND CLINICAL INFORMATION. UNIVERSAL DEFINITION OF MYOCARDIAL INFARCTION. THE UPPER NOTE: HIGH-SENSITIVITY TROPONIN ASSAY IS NOT INTENDED TO BE CUT-OFF POINTS HAVE BEEN ESTABLISHED BASED ON THE FOURTH PERCENTILE OF cTnI DISTRIBUTION IN A REFERENCE POPULATION, REFERENCE LIMIT (URL) OF TROPONIN, DEFINED THE 99TH DIAGNOSIS. 99TH PERCENTILE = 51.4 PG/ML Performing Lab: see note ML - [facility] LB XR KNEE RT 3V Reviewed date:03/04/2025 06:23:39 PM Interpretation: Performing Lab: Notes/Report: Source Facility: [facility]-[address] [place] [address] [place] [address] XRay Report Signed with Isha Patient: KYLAH ROBIN MR#: [id number] : 1945 Acct:[id number] Age/Sex: 79 / F ADM Date: 03/03/25 Loc: LAB Attending Dr: Dhruv Rubi M.D. Ordering Physician: Dhruv Rubi M.D. Date of Service: 03/03/25 Procedure(s): XR knee RT 3V Accession Number(s): [id number] cc: Dhruv Rubi M.D. ADDENDUM The [place] [address] This is an addendum Correction: Addendum Dictated By: Mariusz Hernandez D.O. 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 Impression dictated by: Mariusz Hernandez M.D. 03/04/2025 9:17 AM Dictation Location: [place] [address] Electronically authenticated by: [id number] Y Date: 03/04/2025 09:17 Patient Name: KYLAH ROBIN MRN: [facility]:[id number] date: 1945 Sex: F Assigned Patient Location: LAB Current Patient Location: Accession/Order Number: [id number] Exam Date: 03/04/2025 09:16 Report Date: 03/04/2025 09:17 At the request of: DHRUV RUBI MD Procedure: XR knee RT 3V [place] [address] Patient Name: KYLAH ROBIN MRN: [facility]:[id number] date: 1945 Sex: F Assigned Patient Location: LAB Current Patient Location: LAB Accession/Order Number: [id number] Exam Date: 03/03/2025 16:06 Report Date: 03/03/2025 [...] Hernandez M.D. 03/03/2025 4:08 PM Dictation Location: [place] [address] Electronically authenticated by: [id number] Y Date: 03/03/2025 16:08 Addendum Dictated By: Mariusz Hernandez D.O. Addendum Signed By: 03/04/25 0 919 Addendum Cosigned By: DD/ TD/TT: / [place] [address] Patient Name: KYLAH ROBIN MRN: [facility]:[id number] date: 1945 Sex: F Assigned Patient Location: LAB Current Patient Location: LAB Accession/Order Number: [id number] Exam Date: 03/03/2025 16:06 Report Date: 03/03/2025 [...] Hernandez M.D. 03/03/2025 4:08 PM Dictation Location: [place] [address] Electronically authenticated by: [id number] Y Date: 03/03/2025 16:08 Dictated By: Mariusz Hernandez D.O. Signed By: 03/03/25 1611 DD/ 1608 TD/TT: Operator [employer]: [place] [address] XRay Report Signed with Addenda Patient: CINDI ROBIN MR#: [id number] : 1945 Acct:[id number] Age/Sex: 79 / F ADM Date: 03/03/25 Loc: LAB Attending Dr: Violeta Rubi M.D. Ordering Physician: Dhruv Rubi M.D. Date of Service: 03/03/25 Procedure(s): XR kne e RT 3V Accession Number(s): [id number] cc: Dhruv Rubi M.D. ADDENDUM The [place] [address] This is an addendum Correction: Addendum Dictated By : Mariusz Hernandez, D.O. 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 Impression dictated by: Mariusz Hernandez M.D. 03/04/2025 9:17 AM Dictation Location: [place] [address] Electronically authenticated by: [id number] Y Date: 03/04/2025 09:17 Patient Name: KYLAH ROBIN MRN: [facility]:[id number] date: 1945 Sex: F Assigned Patient Location: LAB Current Patient Location: Accession/Order Numb er: [id number] Exam Date: 03/04/2025 09:16 Report Date: 03/04/2025 09:17 At the request of: DHRUV RUBI MD Procedure: XR knee RT 3V [place] [address] Patient Name: KYLAH ROBIN MRN: [facility]:[id number] date: 1945 Sex: F Assigned Patient Location: LAB Current Patient Loca tion: LAB Accession/Order Numb er: [id number] Exam Date: 03/03/2025 16:06 Report Date: 03/03/2025 [...] Hernandez M.D. 03/03/2025 4:08 PM Dictation Location: [place] [address] Electronically authenticated by: [id number] Y Date: 03/03/2025 16:08 Addendum Dictated By : Mariusz Hernandez D.O. Addendum Signed By: 03/04/25 0 919 Addendum Cosigned By: DD/ TD/TT: / [address] [address] Patient Name: KYLAH ROBIN MRN: [facility]:[id number] date: 1945 Sex: F Assigned Patient Location: LAB Current Patient Loca tion: LAB Accession/Order Numb er: [id number] Exam Date: 03/03/2025 16:06 Report Date: 03/03/2025 [...] Hernandez M.D. 03/03/2025 4:08 PM Dictation Location: [place] [address] Electronically authenticated by: [id number] Y Date: 03/03/2025 16:08 Dictated By: Vern Hernandez D.O. Signed By: 03/03/25 1611 DD/ 1608 TD/TT: [employer]: CBC AUTO DIFF Reviewed date:05/28/2024 11:29:23 AM Interpretation: Performing Lab: Notes/Report: [facility] , White Blood Count 8.0 4.0-11.0 [...] 10 3/uL Performing Lab: see note - [facility] LB UA RANDOM W or MICROSCOPIC Reviewed date:05/28/2024 11:29:23 AM Interpretation: Performing Lab: Notes/Report: [facility] , Color Urine LT. YELLOW YELLOW Clarity Urine CLEAR CLEAR Specific [place] Urine 1.015 1.005-1.025 pH Urine 6.5 5.0-9.0 [...] Indicated ALREADY ORDERED Performing Lab: see note - [facility] LB Urine Culture, Routine Reviewed date:05/31/2024 10:41:39 PM Interpretation: Performing Lab: Notes/Report: [facility] , Urine Culture, Routine See Below For Report Urine Culture, Routine Urine Culture, Routine No growth Urine Culture, Routine Urine Culture, Routine Performed at: - [facility] [place] Urine Culture, Routine Urine Culture, Routine [address] [place], [place] [id number] Urine Culture, Routine Urine Culture, Routine Stitch Separator: Lavell Benson PhD, Phone: [phone] Urine Culture, Routine Performing Lab: see note SEE REPORT - Mix Chemist Id information not found for OBX-specific loan administrator legend - [facility] LB MAGNESIUM Reviewed date:06/09/2024 08:59:57 PM Interpretation: Performing Lab: Notes/Report: [facility] , Magnesium 1.7 1.8-2.4 mg/dL Performing Lab: see note ML - [facility] LB RENAL FUNCTION PANEL Reviewed date:06/09/2024 08:59:57 PM Interpretation: Performing Lab: Notes/Report: [facility] , Sodium 135 136-145 mmol/L Potassium [...] g/dL Performing Lab: see note ML - [facility] LB URIC ACID SERUM Reviewed date:06/09/2024 08:59:57 PM Interpretation: Performing Lab: Notes/Report: [facility] , Uric Acid 3.9 2.6-6.0 mg/dL Performing Lab: see note ML - [facility] LB CBC AUTO DIFF Reviewed date:06/18/2024 09:50:39 PM Interpretation: Performing Lab: Notes/Report: [facility] , White Blood Count 7.1 4.0-11.0 [...] Performing Lab: see note ML - [facility] LB FREE T3 Reviewed date:06/18/2024 09:50:39 PM Interpretation: Performing Lab: Notes/Report: [facility] , Free T3 1.52 2.18-3.98 pg/mL Performing Lab: see note ML - [facility] LB PROF 14(COMP METB) Reviewed date:06/18/2024 09:50:39 PM Interpretation: Performing Lab: Notes/Report: [facility] , Sodium 138 136-145 mmol/L Potassium [...] 0.9 Performing Lab: see note ML - [facility] T4 Reviewed date:06/18/2024 09:50:39 PM Interpretation: Performing Lab: Notes/Report: [facility] , T4 Thyroxine 5.30 4.80-13.90 ug/dL Performing Lab: see note ML - [facility] TSH Reviewed date:06/18/2024 09:50:39 PM Interpretation: Performing Lab: Notes/Report: [facility] , Thyroid Stimulating Hormone 1.690 0.358-3.740 uIU/mL Performing Lab: see note - [facility] UA RANDOM W or MICROSCOPIC Reviewed date:06/18/2024 09:50:39 PM Interpretation: Performing Lab: Notes/Report: [facility] , Color Urine LT. YELLOW YELLOW Clarity Urine CLEAR CLEAR Specific [place] Urine 1.020 1.005-1.025 pH Urine 5.5 5.0-9.0 [...] YES Performing Lab: see note ML - [facility] CA echo doppler complete Reviewed date:06/26/2024 08:23:03 AM Interpretation: Performing Lab: Notes/Report: Source Facility: [place] [address] [place] [address] Cardiology Report Signed Patient: KYLAH ROBIN MR#: [id number] : 1945 Acct:[id number] Age/Sex: 78 / F ADM Date: 06/24/24 Loc: CARD Attending Dr: Carlie Prescott M.D. Ordering Physician: Carlie Prescott M.D. Date of Service: 06/24/24 Procedure(s): CA echo doppler complete Accession Number(s): [id number] cc: Carlie Prescott M.D.; Dhruv Rubi M.D. Patient Name: KYLAH ROBIN MR#: [id number] : 1945 Exam Date: 06/24/2024 Ordering Doctor: [...] M.D. Signed By: 06/25/241705 DD/ 04 TD/TT: Operator [employer]: [place] [address] Cardiology Report Signed Patient: CINDI ROBIN MR#: [id number] : 1945 Acct:[id number] Age/Sex: 78 / F ADM Date: 06/24/24 Loc: CARD Attending Dr: Carlie Prescott M.D. Ordering Physician: Carlie Prescott M.D. Date of Service: 06/24/24 Procedure(s): CA ech o doppler complete Accession Number(s): [id number] cc: Carlie Prescott; Dhruv Rubi M.D. Patient Name: KYLAH ROBIN MR#: [id number] : 1945 Exam Date: 06/24/2024 Ordering Doctor: [...] M.D. Signed By: 06/25/241705 DD/ 04 TD/TT: Operator [employer]: FERRIT[place] Reviewed date:09/01/2024 06:04:15 PM Interpretation: Performing Lab: Notes/Report: [facility] , Ferritin 488.0 8.0-252.0 ng/mL Performing Lab: see note ML - [facility] LB VITAMIN D 25 [place] Reviewed date:09/01/2024 06:04:15 PM Interpretation: Performing Lab: Notes/Report: [facility] , Vitamin D 35.4 30-100 ng/mL Vit D sufficient >100 ng/mL Potential Toxicity <20 ng/mL Vit D deficient 20-<30 ng/mL Vit D insufficient Performing Lab: see note ML - [facility] LB CBC no Diff (Hemogram) Reviewed date:09/01/2024 06:04:15 PM Interpretation: Performing Lab: Notes/Report: [facility] , White Blood Count 6.3 4.0-11.0 [...] fL Performing Lab: see note ML - [facility] LB UA RANDOM W or MICROSCOPIC Reviewed date:09/06/2024 12:29:49 PM Interpretation: Performing Lab: Notes/Report: [facility] , Color Urine DK. ORANGE YELLOW Clarity Urine CLEAR CLEAR Specific [place] Urine 1.010 1.005-1.025 pH Urine COLOR INTERFERENCE [...] ORDERED Performing Lab: see note ML - [facility] LB INFLUENZA A AND B AG Reviewed date:09/20/2024 05:06:04 PM Interpretation: Performing Lab: Notes/Report: [facility] , Influenza Virus A Antigen Negative cannot be ruled out. Flu A antigen in the sample may be below the detection limit of the test. Negative for Flu A protein antigen. Infection due to Flu A Influenza Virus B Antigen Negative Negative for Flu B protein antigen. Infection due to Flu B cannot be ruled out. Flu B antigen in the sample may be below the detection limit of the test. Performing Lab: see note ML - [facility] LB LACTATE or LACTIC ACID Reviewed date:09/20/2024 05:06:04 PM Interpretation: Performing Lab: Notes/Report: [facility] , Lactate/Lactic Acid 1.7 0.4-2.0 mmol/L Performing Lab: see note ML - [facility] LB PROF 14(COMP METB) Reviewed date:09/20/2024 05:06:04 PM Interpretation: Performing Lab: Notes/Report: [facility] , Sodium 135 136-145 mmol/L Potassium [...] 0.8 Performing Lab: see note ML - [facility] LB UA (CLEAN or CATCH) COMIC ARTIST or M ICRO IF IND. Reviewed date:09/20/2024 05:06:04 PM Interpretation: Performing Lab: Notes/Report: [facility] , Color Urine YELLOW YELLOW Clarity Urine CLEAR CLEAR Specific [place] Urine 1.020 1.005-1.025 pH Urine 5.5 5.0-9.0 Protein Urine 100 NEG/TRACE mg/dL Glucose Urine UA NEGATIVE NEGATIVE mg/dL Bilirubin Urine NEGATIVE NEGATIVE Ketones Urine NEGATIVE NEGATIVE mg/dL Blood Urine NEGATIVE NEGATIVE Nitrite Urine NEGATIVE NEGATIVE Urobilinogen Urine 0.2 0.2-1.0 EU/dL Leukocyte Esterase Urine NEGATIVE NEGATIVE Urine Microscopic Indicated YES Performing Lab: see note ML - [facility] LB Troponin I High Sensitivity Reviewed date:09/20/2024 05:06:04 PM Interpretation: Performing Lab: Notes/Report: [facility] , Troponin I High Sensitivity 12.6 4.0-51.3 pg/mL PERCENTILE OF cTnI DISTRIBUTION IN A REFERENCE POPULATION, USED IN ISOLATION BUT SHOULD BE INTERPRETED IN CONJUNCTION NOTE: HIGH-SENSITIVITY TROPONIN ASSAY IS NOT INTENDED TO BE HAS BEEN CONFIRMED THE DECISION THRESHOLD FOR CO DIAGNOSIS. WITH OTHER DIAGNOSTIC AND CLINICAL INFORMATION. CUT-OFF POINTS HAVE BEEN ESTABLISHED BASED ON THE FOURTH REFERENCE LIMIT (URL) OF TROPONIN, DEFINED THE 99TH UNIVERSAL DEFINITION OF MYOCARDIAL INFARCTION. THE UPPER 99TH PERCENTILE = 51.4 PG/ML Performing Lab: see note ML - [facility] LB TSH W/ REFLEX FT4 Reviewed date:09/20/2024 05:06:04 PM Interpretation: Performing Lab: Notes/Report: [facility] , TSH W/ REFLEX FT4 1.297 0.358-3.740 uIU/mL Performing Lab: see note ML - [facility] LB SARS-CoV-2 Ag* Reviewed date:09/20/2024 05:06:04 PM Interpretation: Performing Lab: Notes/Report: [facility] , SARS-CoV-2 Ag NEGATIVE NEGATIVE complexity testing. This test has been authorized only for authorized for the duration of the declaration that and/or diagnosis of Covid-19 under section 564(b)(1) of the Act, 21 U.S.C. 360bbb-3(b)(1), unless the declaration is This test has not been FDA cleared or approved, but has been emergency use of in vitro diagnostic tests for detection viruses or pathogens. The emergency use of this test is (EUA) for use by authorized laboratories certified under terminated or authorization is revoked sooner. authorized by the FDA under an Emergency Use Authorization CLIA that meet the requirements to perform moderate or high circumstances exist justifying the authorization of the detection of proteins from SARS-CoV-2, not for any other Performing Lab: see note ML - [facility] LB ECG 12 lead Reviewed date:09/22/2024 12:37:02 PM Interpretation: Performing Lab: Notes/Report: Source Facility: [facility]-[address] [place] [address] [place] [address] Electrocardiograph Report Signed Patient: KYLAH ROBIN MR#: [id number] : 1945 Acct:[id number] Age/Sex: 78 / F ADM Date: 09/20/24 Loc: ER Attending Dr: Ordering Physician: Luis Lugo Date of Service: 09/20/24 Procedure(s): ECG 12 lead Accession Number(s): [id number] cc: [facility] Test Date: 2024-09-20 Pat Name: KYLAH ROBIN Department: Room: - Gender: Female Obstetrics Nurse: : 1945 Requested By: DHRUV RUBI Order Number: [id number] Reading MD: DHRUV RUBI Measurements Intervals [place] Rate: 83 P: 43 CO: 156 QRS: 13 QRSD: 86 T: 57 QT: 394 QTc: 434 Interpretive Statements 1100 Sinus rhythm 4068 Nonspecific Twave abnormality 9130 borderline ECG Compared to ECG 03/01/2024 19:45:19 T-wave abnormality no longer present Electronically Signed On 09-22-2024 6:58:14 EST by DHRUV RUBI Dictated By: Dhruv Rubi M.D. Signed By: 09/22/2458 DD/ 152 TD/TT: Operator [employer]: [place] [address] Electrocardiograph Report Signed Patient: CINDI ROBIN MR#: [id number] : 1945 Acct:[id number] Age/Sex: 78 / F ADM Date: 09/20/24 Loc: ER Attending Dr: Ordering Physician: Luis Lugo Date of Service: 09/20/24 Procedure(s): ECG 12 lead Accession Number(s): [id number] cc: [facility] Test Date: 2024-09-20 Pat Name: KYLAH RODRIGUES Department: 70 Room: - Gender: Female Obstetrics Nurse: : 1945 Requ ested By: DHRUV RUBI Order Number: [id number] Reading MD: DHRUV RUBI Measurements Intervals [place] Rate: 83 P: 43 CO: 156 QRS: 13 QRSD: 86 T: 57 QT: 394 QTc: 434 Interpretive Statements 1100 Sinus rhythm 4068 Nonspecific Twa ve abnormality 9130 borderline ECG Compared to ECG 03/01/2024 19:45:19 T-wave abnormality n o longer present Electronically Chelita d On 09-22-2024 6:58:14 EST by DHRUV RUBI Dictated By: Gissel Rubi M.D. Signed By: 09/22/2458 DD/ 1521 TD/TT: Operator [employer]: CT abdomen pelvis wo con Reviewed date:09/20/2024 05:06:04 PM Interpretation: Performing Lab: Notes/Report: Source Facility: [place] [address] [place] [address] CT Scan Report Signed Patient: KYLAH ROBIN MR#: [id number] : 1945 Acct:[id number] Age/Sex: 78 / F ADM Date: 09/20/24 Loc: ER Attending Dr: Ordering Physician: Luis Lugo Date of Service: 09/20/24 Procedure(s): CT abdomen pelvis wo con Accession Number(s): [id number] cc: Dhruv Rubi M.D. [address] [address] Patient Name: KYLAH ROBIN MRN: [facility]:[id number] date: 1945 Sex: F Assigned Patient Location: ER Current Patient Location: ER Accession/Order Number: [id number] Exam Date: 09/20/2024 15:52 Report Date: 09/20/2024 [...] M.D. Signed By: 09/20/241622 DD/ 19 TD/TT: Operator [employer]: The [address] [address] [address] Scan Report Signed Patient: CINDI ROBIN MR#: [id number] : 1945 Acct:[id number] Age/Sex: 78 / F ADM Date: 09/20/24 Loc: ER Attending Dr: Ordering Physician: Luis Lugo Date of Service: 09/20/24 Procedure(s): CT abd omen pelvis wo con Accession Number(s): [id number] cc: Dhruv Rubi M.D. [place] [address] Patient Name: KYLAH ROBIN MRN: [facility]:[id number] date: 1945 Sex: F Assigned Patient Location: ER Current Patient Loca tion: ER Accession/Order Numb er: [id number] Exam Date: 15:52 Report Date: 09/20/2024 16:20 [...] M.D. Signed By: 09/20/241622 DD/ 19 TD/TT: Operator [employer]: XR chest 1V Reviewed date:09/20/2024 05:06:04 PM Interpretation: Performing Lab: Notes/Report: Source Facility: [place] [address] [place] [address] XRay Report Signed Patient: KYLAH ROBIN MR#: [id number] : 1945 Acct:[id number] Age/Sex: 78 / F ADM Date: 09/20/24 Loc: ER Attending Dr: Ordering Physician: Luis Lugo Date of Service: 09/20/24 Procedure(s): XR chest 1V Accession Number(s): [id number] cc: Dhruv Rubi M.D.; Luis Lugo [place] [address] Patient Name: KYLAH ROBIN MRN: [id number] date: 1945 Sex: F Assigned Patient Location: ER Current Patient Location: ER Accession/Order Number: [id number] Exam Date: 09/20/2024 15:28 Report Date: 09/20/2024 [...] Signed By: 09/20/24 1601 DD/ 1558 TD/TT: Operator [employer]: [place] [address] XRay Report Signed Patient: CINDI ROBIN MR#: [id number] : 1945 Acct:[id number] Age/Sex: 78 / F ADM Date: 09/20/24 Loc: ER Attending Dr: Ordering Physician: Luis Lugo Date of Service: 09/20/24 Procedure(s): XR chest 1V Accession Number(s): [id number] cc: Dhruv Rubi M.D. ; Luis Lugo [place] [id number] Patient Name: KYLAH ROBIN MRN: [facility]:[id number] date: 1945 Sex: F Assigned Patient Location: ER Current Patient Loca tion: ER Accession/Order Numb er: [id number] Exam Date: 15:28 Report Date: 09/20/2024 15:58 [...] By: Antonieta Beth M.D. Signed By: 09/20/24 1601 DD/ 1558 TD/TT: Operator [employer]: CBC AUTO DIFF Reviewed date:11/18/2024 10:07:51 PM Interpretation: Performing Lab: Notes/Report: [facility] , White Blood Count 6.9 4.0-11.0 [...] 3/uL Performing Lab: see note ML - [facility] LB PROF CHEM 8 (BAS METB) Reviewed date:11/18/2024 10:07:51 PM Interpretation: Performing Lab: Notes/Report: [facility] , Sodium 140 136-145 mmol/L Potassium [...] 8.9 8.5-10.1 mg/dL Performing Lab: see note - [facility] LB ECG 12 lead Reviewed date:11/20/2024 06:53:57 AM Interpretation: Performing Lab: Notes/Report: Source Facility: [facility]-[address] [place] [address] [place] [address] Electrocardiograph Report Signed Patient: KYLAH ROBIN MR#: [id number] : 1945 Acct:[id number] Age/Sex: 78 / F ADM Date: 11/17/24 Loc: ER Attending Dr: Ordering Physician: Pee Prabhakar M.D. Date of Service: 11/17/24 Procedure(s): ECG 12 lead Accession Number(s): [id number] cc: [facility] Test Date: 2024-11-17 Pat Name: KYLAH ROBIN Department: Room: - Gender: Female Obstetrics Nurse: : 1945 Requested By: DHRUV RUBI Order Number: [id number] Reading MD: DHRUV RUBI Measurements Intervals [place] Rate: 71 P: 25 CO: 186 QRS: 18 QRSD: 84 T: 91 QT: 408 QTc: 431 Interpretive Statements 1100 Sinus rhythm 4068 Nonspecific Twave abnormality 9130 borderline ECG Compared to ECG 09/20/2024 15:21:49 No significant changes Electronically Signed On 11-20-2024 5:24:01 EST by DHRUV RUBI Dictated By: Dhruv Rubi M.D. Signed By: 11/20/24 0524 DD/ TD/TT: Operator [employer]: [place] [address] Electrocardiograph Report Signed Patient: CINDI ROBIN MR#: [id number] : 1945 Acct:[id number] Age/Sex: 78 / F ADM Date: 11/17/24 Loc: ER Attending Dr: Ordering Physician: Pee Prabhakar M.D. Date of Service: 11/17/24 Procedure(s): ECG 12 lead Accession Number(s): [id number] cc: [facility] Test Date: 2024-11-17 Pat Name: KYLAH RODRIGUES Department: 70 Room: - Gender: Female Obstetrics Nurse: : 1945 Requ ested By: DHRUV RUBI Order Number: [id number] Reading MD: DHRUV RUBI Measurements Intervals [place] Rate: 71 P: 25 CO: 186 QRS: 18 QRSD: 84 T: 91 QT: 408 QTc: 431 Interpretive Statements 1100 Sinus rhythm 4068 Nonspecific Twa ve abnormality 9130 borderline ECG Compared to ECG 09/20/2024 15:21:49 No significant changes Electronically Chelita d On 11-20-2024 5:24:01 EST by DHRUV RUBI Dictated By: Gissel Rubi M.D. Signed By: 11/20/24 0524 DD/ 17 TD/TT: Operator [employer]: MM tomosynthesis screening B I Reviewed date:12/22/2024 08:51:42 PM Interpretation: Performing Lab: Notes/Report: Source Facility: [place] [address] Mammography Report Signed Patient: KYLAH ROBIN MR#: [id number] : 1945 Acct:[id number] Age/Sex: 79 / F ADM Date: 12/22/24 Loc: MAMMO Attending Dr: Dhruv Rubi M.D. Ordering Physician: Dhruv Rubi M.D. Results: Date of Service: 12/22/24 Follow Up: Procedure(s): MM tomosynthesis screening BI Accession Number(s): [id number] cc: Dhruv Rubi M.D. Patient Name: KYLAH ROBIN MR#: [id number] : 1945 Exam Date: 12/22/2024 Ordering Doctor: [...] cancer at age 61. LOCATION: [facility] BREAST COMPOSITION: There are scattered areas [...] Signed By: 12/22/24 1602 DD/ 1601 TD/TT: Operator [employer]: [place] [address] Mammography Report Signed Patient: CINDI ROBIN MR#: [id number] : 1945 Acct:[id number] Age/Sex: 79 / F ADM Date: 12/22/24 Loc: MAMMO Attending Dr: Violeta Rubi M.D. Ordering Physician: Dhruv Rubi M.D. Results: Date of Service: Follow Up: Procedure(s): MM tomosynthesis screening BI Accession Number(s): [id number] cc: Dhruv Rubi M.D. Patient Name: KYLAH ROBIN MR#: [id number] : 1945 Exam Date: 12/22/2024 Ordering Doctor: [...] can cer at age 61. LOCATION: [facility] BREAST COMPOSITION: There are scattered areas of [...] Signed By: 12/22/24 1602 DD/ 1601 TD/TT: Operator [employer]: IRON AND TIBC Reviewed date:01/05/2025 07:25:49 PM Interpretation: Performing Lab: Notes/Report: [facility] , Iron 69.0 50.0-170.0 ug/dL Total Iron Binding Capacity 207.0 250.0-450.0 ug/dL Percent Iron Saturation 33.3 Performing Lab: see note - [facility] LB UA RANDOM W or MICROSCOPIC Reviewed date:01/05/2025 07:25:49 PM Interpretation: Performing Lab: Notes/Report: [facility] , Color Urine LT. YELLOW YELLOW Clarity Urine CLOUDY CLEAR Specific [place] Urine 1.020 1.005-1.025 pH Urine 6.0 5.0-9.0 [...] #/LPF Performing Lab: see note ML - [facility] LB URINE T PROTEIN CREAT RATIO Reviewed date:01/05/2025 07:25:49 PM Interpretation: Performing Lab: Notes/Report: [facility] , Total Protein Urine Random 108.9 <=11.9 mg/dL Creatinine Urine Random 157.18 20.00-30 0.00 mg/dL Protein Creatinine Ratio Urine 0.69 Performing Lab: see note ML - [facility] LB VITAMIN D 25 [place] Reviewed date:01/05/2025 07:25:49 PM Interpretation: Performing Lab: Notes/Report: [facility] , Vitamin D 30.9 30-100 ng/mL Vit D sufficient 20-<30 ng/mL Vit D insufficient <20 ng/mL Vit D deficient >100 ng/mL Potential Toxicity Performing Lab: see note ML - [facility] LB CBC no Diff (Hemogram) Reviewed date:01/05/2025 07:25:49 PM Interpretation: Performing Lab: Notes/Report: [facility] , White Blood Count 6.0 4.0-11.0 [...] fL Performing Lab: see note ML - [facility] LB PTH, Intact Reviewed date:01/06/2025 08:09:23 PM Interpretation: Performing Lab: Notes/Report: [facility] , PTH, Intact 73 15-65 pg/mL [address] [place], [place] [id number] Stitch Separator: Ashok Benson PhD, Phone: [phone] Performed at: - [facility] Performing Lab: see note - [facility] LB XR knee RT 4V Reviewed date:04/14/2025 07:10:06 PM Interpretation: Performing Lab: Notes/Report: Source Facility: [facility]-[address] [place] [address] [place] [address] XRay Report Signed Patient: KYLAH ROBIN MR#: [id number] : 1945 Acct:[id number] Age/Sex: 79 / F ADM Date: 04/14/25 Loc: RAD Attending Dr: Dhruv Rubi M.D. Ordering Physician: Dhruv Rubi M.D. Date of Service: 04/14/25 Procedure(s): XR knee RT 4V Accession Number(s): [id number] cc: Dhruv Rubi M.D. [place] [id number] Patient Name: KYLAH ROBIN MRN: [facility]:[id number] date: 1945 Sex: F Assigned Patient Location: RAD Current Patient Location: RAD Accession/Order Number: [id number] Exam Date: 04/14/2025 09:52 Report Date: 04/14/2025 09:55 At the request of: DHRUV RUBI MD Procedure: XR knee RT 4V RIGHT KNEE - 4 views COMPARISON: 02/23/2025 CLINICAL DATA: Acute right knee pain since fall 2 weeks ago. AP, lateral and both oblique views were obtained. There is osteopenia. No acute fractures or dislocation are identified. Moderate narrowing at the medial tibiofemoral joint compartment is again seen. There is minimal marginal spurring. A knee effusion is noted. No soft tissue swelling is seen. XR/XR knee RT 4V IMPRESSION: OSTEOPENIA AND SIMILAR DEGENERATIVE CHANGE. KNEE EFFUSION. NO ACUTE BONY INJURY. Impression dictated by: Cary Good M.D. 04/14/2025 9:55 AM Dictation Location: [place] [address] Electronically authenticated by: [id number] Y Date: 04/14/2025 09:55 Dictated By: Cary Good M.D. Signed By: 04/14/2558 DD/ 4 TD/TT: Operator [employer]: [place] [address] XRay Report Signed Patient: CINDI ROBIN MR#: [id number] : 1945 Acct:[id number] Age/Sex: 79 / F ADM Date: 04/14/25 Loc: RAD Attending Dr: Violeta Rubi M.D. Ordering Physician: Dhruv Rubi M.D. Date of Service: 04/14/25 Procedure(s): XR kne e RT 4V Accession Number(s): [id number] cc: Dhruv Rubi M.D. [place] [address] Patient Name: KYLAH ROBIN MRN: [facility]:[id number] date: 1945 Sex: F Assigned Patient Location: [facility] Current Patient Loca tion: RAD Accession/Order Numb er: [id number] Exam Date: 04/14/2025 09:52 Report Date: 04/14/2025 09:55 At the request of: DHRUV RUBI MD Procedure: XR knee RT 4V RIGHT KNEE - 4 views COMPARISON: 02/23/2025 CLINICAL DATA: Acute right knee pain since fall 2 weeks ago. AP, lateral and both oblique views were obtained. There is osteopenia. No acute fractures or dislocation are identified. Moderate narrowing at the medial tibiofemoral joint compartment is again seen. There is minimal marginal spurring. A knee effusion is noted. No soft tissue swelling is seen. X R/XR knee RT 4V IMPRESSION: OSTEOPENIA AND SIMIL AR DEGENERATIVE CHANGE. KNEE EFFUSION. NO ACUTE BONY INJURY. Impression dictated by: Cary Good M.D. 04/14/2025 9:55 AM Dictation Location: [place] [address] Electronically authenticated by: [id number] Y Date: 04/14/2025 09:55 Dictated By: Cary Good M.D. Signed By: 04/14/25 0958 DD/ TD/TT: Operator [employer]: BNP Reviewed date:04/22/2025 06:54:09 PM Interpretation: Performing Lab: Notes/Report: [facility] , NT Pro B Type Natriuretic Pept 1188.0 <=1800.0 pg/mL Performing Lab: see note ML - [facility] LB URIC ACID SERUM Reviewed date:01/05/2025 07:25:49 PM Interpretation: Performing Lab: Notes/Report: [facility] , Uric Acid 3.9 2.6-6.0 mg/dL Performing Lab: see note ML - [facility] RENAL FUNCTION PANEL Reviewed date:01/05/2025 07:25:49 PM Interpretation: Performing Lab: Notes/Report: [facility] , Sodium 141 136-145 mmol/L Potassium [...] g/dL Performing Lab: see note ML - [facility] MAGNESIUM Reviewed date:01/05/2025 07:25:49 PM Interpretation: Performing Lab: Notes/Report: [facility] , Magnesium 1.9 1.8-2.4 mg/dL Performing Lab: see note ML - [facility] FERRITIN Reviewed date:01/05/2025 07:25:49 PM Interpretation: Performing Lab: Notes/Report: [facility] , Ferritin 499.0 8.0-252.0 ng/mL Performing Lab: see note ML - [facility] XR chest 2V Reviewed date:12/31/2024 08:41:15 PM Interpretation: Performing Lab: Notes/Report: Source Facility: [facility]-[address] [place] [address] [place] [address] XRay Report Signed Patient: KYLAH ROBIN MR#: [id number] : 1945 Acct:[id number] Age/Sex: 79 / F ADM Date: 12/31/24 Loc: LAB Attending Dr: Dhruv Hoy M.D. Ordering Physician: Dhruv Rubi M.D. Date of Service: 12/31/24 Procedure(s): XR chest 2V Accession Number(s): [id number] cc: Dhruv Rubi M.D. [address] [address] Patient Name: KYLAH ROBIN MRN: [id number]:[id number] date: 1945 Sex: F Assigned Patient Location: LAB Current Patient Location: LAB Accession/Order Number: [id number] Exam Date: 12/31/2024 12:38 Report Date: 12/31/2024 [...] Mariusz Hernandez M.D.12/31/2024 12:41 PM Dictation Location: [place] [address] Electronically authenticated by: [id number] Y Date: 12/31/2024 12:41 Dictated By: Mariusz Hernandez D.O. Signed By: 12/31/24 1244 DD/ 1241 TD/TT: Operator [employer]: [place] [id number] XRay Report Signed Patient: CINDI ROBIN MR#: [id number] : 1945 Acct:[id number] Age/Sex: 79 / F ADM Date: 12/31/24 Loc: LAB Attending Dr: Violeta Rubi M.D. Ordering Physician: Dhruv Rubi M.D. Date of Service: 12/31/24 Procedure(s): XR chest 2V Accession Number(s): [id number] cc: Dhruv Rubi M.D. [address], [place] [address] Patient Name: KYLAH ROBIN MRN: [facility]:[id number] date: 1945 Sex: F Assigned Patient Location: LAB Current Patient Loca tion: LAB Accession/Order Numb er: [id number] Exam Date: 12/31/2024 12:38 Report Date: 12/31/2024 [...] Mariusz Hernandez M.D.12/31/2024 12:41 PM Dictation Location: [place] [address] Electronically authenticated by: [id number] Y Date: 12/31/2024 12:41 Dictated By: Vern Hernandez D.O. Signed By: 12/31/24 1244 DD/ 1241 TD/TT: Operator [employer]: Troponin I High Sensitivity Reviewed date:12/31/2024 08:41:15 PM Interpretation: Performing Lab: Notes/Report: [facility] , Troponin I High Sensitivity 11.5 4.0-51.3 pg/mL UNIVERSAL DEFINITION OF MYOCARDIAL INFARCTION. THE UPPER HAS BEEN CONFIRMED THE DECISION THRESHOLD FOR CO WITH OTHER DIAGNOSTIC AND CLINICAL INFORMATION. USED IN ISOLATION BUT SHOULD BE INTERPRETED IN CONJUNCTION PERCENTILE OF cTnI DISTRIBUTION IN A REFERENCE POPULATION, CUT-OFF POINTS HAVE BEEN ESTABLISHED BASED ON THE FOURTH DIAGNOSIS. 99TH PERCENTILE = 51.4 PG/ML NOTE: HIGH-SENSITIVITY TROPONIN ASSAY IS NOT INTENDED TO BE REFERENCE LIMIT (URL) OF TROPONIN, DEFINED THE 99TH Performing Lab: see note ML - [facility] LB URINE MICROSCOPIC ONLY Reviewed date:09/20/2024 05:06:04 PM Interpretation: Performing Lab: Notes/Report: [facility] , WBC Urine NONE SEEN NONE SEEN #/HPF RBC Urine 0-2 0-2 #/HPF Bacteria Urine TRACE NONE SEEN #/HPF Mucus Urine NONE SEEN NONE SEEN Squamous Epithelial Cell Urine MODERATE NONE/RARE #/LPF Crystals Seen? None Seen None Seen #/HPF Cast Seen? NONE SEEN NONE SEEN #/LPF Urine Culture Indicated NO Performing Lab: see note ML - [facility] LB CBC AUTO DIFF Reviewed date:09/20/2024 05:06:04 PM Interpretation: Performing Lab: Notes/Report: [facility] , White Blood Count 15.3 4.0-11.0 [...] 3/uL Performing Lab: see note ML - [facility] LB Urine Culture, Routine Reviewed date:09/08/2024 09:03:21 PM Interpretation: Performing Lab: Notes/Report: [facility] , Urine Culture, Routine See Below For Report Isolated Organism: 1.1 Antibiotic Interpretation AIDEN Status Organism: Gram negative martin : Urine Culture, Routine O:GNR O:ESCCOL Isolated Urine Culture, Routine *ABNORMAL* Isolated Organism: 1.1 Antibiotic Interpretation AIDEN Status Organism: Gram negative martin : Urine Culture, Routine O:GNR O:ESCCOL Isolated Urine Culture, Routine 10,000-25,000 col kendall forming units per mL Isolated Organism: 1.1 Antibiotic Interpretation AIDEN Status Organism: Gram negative martin : Urine Culture, Routine O:GNR O:ESCCOL Isolated Urine Culture, Routine Gram negative martin Isolated Organism: 1.1 Antibiotic Interpretation AIDEN Status Organism: Gram negative martin : Urine Culture, Routine O:GNR O:ESCCOL Isolated Urine Culture, Routine Organism: Escheri herbert coli : Isolated Organism: 1.1 Antibiotic Interpretation AIDEN Status Organism: Gram negative martin : Urine Culture, Routine O:GNR O:ESCCOL Isolated Urine Culture, Routine *ABNORMAL* Isolated Organism: 1.1 Antibiotic Interpretation AIDEN Status Organism: Gram negative martin : Urine Culture, Routine O:GNR O:ESCCOL Isolated Urine Culture, Routine Identified by an automated biochemical system. Isolated Organism: 1.1 Antibiotic Interpretation AIDEN Status Organism: Gram negative martin : Urine Culture, Routine O:GNR O:ESCCOL Isolated Urine Culture, Routine Multi-Drug Resist ant Organism Isolated Organism: 1.1 Antibiotic Interpretation AIDEN Status Organism: Gram negative martin : Urine Culture, Routine O:GNR O:ESCCOL Isolated Urine Culture, Routine Susceptibility pr ofile is consistent with a probable Isolated Organism: 1.1 Antibiotic Interpretation AIDEN Status Organism: Gram negative martin : Urine Culture, Routine O:GNR O:ESCCOL Isolated Urine Culture, Routine ESBL. Isolated Organism: 1.1 Antibiotic Interpretation AIDEN Status Organism: Gram negative martin : Urine Culture, Routine O:GNR O:ESCCOL Isolated Urine Culture, Routine 10,000-25,000 col kendall forming units per mL Isolated Organism: 1.1 Antibiotic Interpretation AIDEN Status Organism: Gram negative martin : Urine Culture, Routine O:GNR O:ESCCOL Isolated Urine Culture, Routine Escherichia coli Isolated Organism: 1.1 Antibiotic Interpretation AIDEN Status Organism: Gram negative martin : Urine Culture, Routine O:GNR O:ESCCOL Isolated Urine Culture, Routine See Below For Report Isolated Organism: 1.1 Antibiotic Interpretation AIDEN Status Organism: Gram negative martin : Urine Culture, Routine O:GNR O:ESCCOL Isolated Urine Culture, Routine See Below For Report Isolated Organism: 1.1 Antibiotic Interpretation AIDEN Status Organism: Gram negative martin : Urine Culture, Routine O:GNR O:ESCCOL Isolated Urine Culture, Routine Performed at: [facility] Isolated Organism: 1.1 Antibiotic Interpretation AIDEN Status Organism: Gram negative martin : Urine Culture, Routine O:GNR O:ESCCOL Isolated Urine Culture, Routine [address] [place], [place] [id number] Isolated Organism: 1.1 Antibiotic Interpretation AIDEN Status Organism: Gram negative martin : Urine Culture, Routine O:GNR O:ESCCOL Isolated Urine Culture, Routine Stitch Separator: Lavell Benson PhD, Phone: [phone] Isolated Organism: 1.1 Antibiotic Interpretation AIDEN Status Organism: Gram negative martin : Urine Culture, Routine O:GNR O:ESCCOL Isolated Urine Culture, Routine See Below For Report Isolated Organism: 1.1 Antibiotic Interpretation AIDEN Status Organism: Gram negative martin : Urine Culture, Routine O:GNR O:ESCCOL Isolated Urine Culture, Routine AMOXICILLIN/CLAVU LANIC ACID S F Isolated Organism: 1.1 Antibiotic Interpretation AIDEN Status Organism: Gram negative martin : Urine Culture, Routine O:GNR O:ESCCOL Isolated Urine Culture, Routine Ampicillin R F Isolated Organism: 1.1 Antibiotic Interpretation AIDEN Status Organism: Gram negative martin : Urine Culture, Routine O:GNR O:ESCCOL Isolated Urine Culture, Routine Cefazolin R F Isolated Organism: 1.1 Antibiotic Interpretation AIDEN Status Organism: Gram negative martin : Urine Culture, Routine O:GNR O:ESCCOL Isolated Urine Culture, Routine Cefepime R F Isolated Organism: 1.1 Antibiotic Interpretation AIDEN Status Organism: Gram negative martin : Urine Culture, Routine O:GNR O:ESCCOL Isolated Urine Culture, Routine Ceftriaxone R F Isolated Organism: 1.1 Antibiotic Interpretation AIDEN Status Organism: Gram negative martin : Urine Culture, Routine O:GNR O:ESCCOL Isolated Urine Culture, Routine Cefuroxime R F Isolated Organism: 1.1 Antibiotic Interpretation AIDEN Status Organism: Gram negative martin : Urine Culture, Routine O:GNR O:ESCCOL Isolated Urine Culture, Routine Ciprofloxacin R F Isolated Organism: 1.1 Antibiotic Interpretation AIDEN Status Organism: Gram negative martin : Urine Culture, Routine O:GNR O:ESCCOL Isolated Urine Culture, Routine Ertapenem S F Isolated Organism: 1.1 Antibiotic Interpretation AIDEN Status Organism: Gram negative martin : Urine Culture, Routine O:GNR O:ESCCOL Isolated Urine Culture, Routine Gentamicin R F Isolated Organism: 1.1 Antibiotic Interpretation AIDEN Status Organism: Gram negative martin : Urine Culture, Routine O:GNR O:ESCCOL Isolated Urine Culture, Routine Imipenem S F Isolated Organism: 1.1 Antibiotic Interpretation AIDEN Status Organism: Gram negative martin : Urine Culture, Routine O:GNR O:ESCCOL Isolated Urine Culture, Routine Levofloxacin R F Isolated Organism: 1.1 Antibiotic Interpretation AIDEN Status Organism: Gram negative martin : Urine Culture, Routine O:GNR O:ESCCOL Isolated Urine Culture, Routine Meropenem S F Isolated Organism: 1.1 Antibiotic Interpretation AIDEN Status Organism: Gram negative martin : Urine Culture, Routine O:GNR O:ESCCOL Isolated Urine Culture, Routine Nitrofurantoin S F Isolated Organism: 1.1 Antibiotic Interpretation AIDEN Status Organism: Gram negative martin : Urine Culture, Routine O:GNR O:ESCCOL Isolated Urine Culture, Routine Tetracycline S F Isolated Organism: 1.1 Antibiotic Interpretation AIDEN Status Organism: Gram negative martin : Urine Culture, Routine O:GNR O:ESCCOL Isolated Urine Culture, Routine Tobramycin I F Isolated Organism: 1.1 Antibiotic Interpretation AIDEN Status Organism: Gram negative martin : Urine Culture, Routine O:GNR O:ESCCOL Isolated Urine Culture, Routine Trimethoprim/Sulf amethoxa zole R F Isolated Organism: 1.1 Antibiotic Interpretation AIDEN Status Organism: Gram negative martin : Urine Culture, Routine O:GNR O:ESCCOL Isolated Urine Culture, Routine Piperacillin/Tazo bactam S F Isolated Organism: 1.1 Antibiotic Interpretation AIDEN Status Organism: Gram negative martin : Urine Culture, Routine O:GNR O:ESCCOL Isolated Performing Lab: see note LC - [facility] LB SEE REPORT - Mix Chemist Id information not found for OBX-specific loan administrator legend URIC ACID SERUM Reviewed date:09/01/2024 06:04:15 PM Interpretation: Performing Lab: Notes/Report: [facility] , Uric Acid 4.2 2.6-6.0 mg/dL Performing Lab: see note ML - [facility] LB RENAL FUNCTION PANEL Reviewed date:09/01/2024 06:04:15 PM Interpretation: Performing Lab: Notes/Report: [facility] , Sodium 136 136-145 mmol/L Potassium [...] g/dL Performing Lab: see note ML - [facility] LB MAGNESIUM Reviewed date:09/01/2024 06:04:15 PM Interpretation: Performing Lab: Notes/Report: [facility] , Magnesium 1.9 1.8-2.4 mg/dL Performing Lab: see note ML - [facility] LB IRON AND TIBC Reviewed date:09/01/2024 06:04:15 PM Interpretation: Performing Lab: Notes/Report: [facility] , Iron 61.0 50.0-170.0 ug/dL Total Iron Binding Capacity 205.0 250.0-450.0 ug/dL Percent Iron Saturation 29.8 Performing Lab: see note ML - [facility] LB XR DEXA axial skeleton Reviewed date:06/10/2024 07:36:23 PM Interpretation: Performing Lab: Notes/Report: Source Facility: [facility]-[address] [place] [address] [place] [address] XRay Report Signed Patient: KYLAH ROIBN MR#: [id number] : 1945 Acct:[id number] Age/Sex: 78 / F ADM Date: 06/10/24 Loc: RAD Attending Dr: Dhruv Rubi M.D. Ordering Physician: Dhruv Rubi M.D. Date of Service: 06/10/24 Procedure(s): XR DEXA axial skeleton Accession Number(s): [id number] cc: Dhruv Rubi M.D. [place] [address] Patient Name: KYLAH ROBIN MRN: [id number] date: 1945 Sex: F Assigned Patient Location: [facility] Current Patient Location: [facility] Accession/Order Number: [id number] Exam Date: 06/10/2024 08:44 Report Date: 06/10/2024 [...] prevention and treatment of osteoporosis. Osteoporos Int. 2021;3310):0694-1256. doi: 10.1007/s81968-136-83913-j. Epub 2021Feb 01. Erratum in: Osteoporos Int. 2021May 03;: PMID: [id number]; PMCID: [id number]. Electronically authenticated by: JAIRO KIM Date: 06/10/2024 10:29 Dictated By: Jairo Kim M.D. Signed By: 06/10/24 1032 DD/ 1029 TD/TT: Operator [employer]: [place] [address] XRay Report Signed Patient: CINDI ROBIN MR#: [id number] : 1945 Acct:[id number] Age/Sex: 78 / F ADM Date: 06/10/24 Loc: LORE Attending Dr: Violeta Rubi M.D. Ordering Physician: Dhruv Rubi M.D. Date of Service: 06/10/24 Procedure(s): XR DEX A axial skeleton Accession Number(s): [id number] cc: Dhruv Rubi M.D. [place] [id number] Patient Name: KYLAH ROBIN MRN: [id number] date: 1945 Sex: F Assigned Patient Location: RAD Current Patient Loca tion: RAD Accession/Order Numb er: [id number] Exam Date: 06/10/2024 08:44 Report Date: 06/10/2024 [...] prevention and treatment of osteoporosis. Osteoporos Int. 2021;33(10):4836-1316. doi: 10.1007/a46112-072-90289- y. Epub 2021Feb 01. Erratum in: Osteoporos Int. 2021May 03;: PMID: [id number]; PMCID: [id number]. Electronically authenticated by: JAIRO KIM Date: 06/10/2024 10:29 Dictated By: Jairo Kim M.D. Signed By: 06/10/24 1032 DD/ 1029 TD/TT: Operator [employer]: CBC no Diff (Hemogram) Reviewed date:06/09/2024 08:59:57 PM Interpretation: Performing Lab: Notes/Report: [facility] , White Blood Count 6.8 4.0-11.0 [...] 9.6 9.5-13.5 fL Performing Lab: see note ML - [facility] LB VITAMIN D 25 [place] Reviewed date:06/09/2024 08:59:57 PM Interpretation: Performing Lab: Notes/Report: [facility] , Vitamin D 39.9 30-100 ng/mL Vit D sufficient >100 ng/mL Potential Toxicity <20 ng/mL Vit D deficient 20-<30 ng/mL Vit D insufficient Performing Lab: see note ML - [facility] LB URINE T PROTEIN CREAT RATIO Reviewed date:06/09/2024 08:59:57 PM Interpretation: Performing Lab: Notes/Report: [facility] , Total Protein Urine Random 77.8 <=11.9 mg/dL Creatinine Urine Random 117.64 20.00-30 0.00 mg/dL Protein Creatinine Ratio Urine 0.66 Performing Lab: see note ML - [facility] LB IRON AND TIBC Reviewed date:06/09/2024 08:59:57 PM Interpretation: Performing Lab: Notes/Report: [facility] , Iron 65.0 50.0-170.0 ug/dL Total Iron Binding Capacity 186.0 250.0-450.0 ug/dL Percent Iron Saturation 34.9 Performing Lab: see note ML - [facility] LB FERRITIN Reviewed date:06/09/2024 08:59:57 PM Interpretation: Performing Lab: Notes/Report: [facility] , Ferritin 792.0 8.0-252.0 ng/mL Performing Lab: see note ML - [facility] LB PROF 14(COMP METB) Reviewed date:05/28/2024 11:29:23 AM Interpretation: Performing Lab: Notes/Report: [facility] , Sodium 133 136-145 mmol/L Potassium [...] Performing Lab: see note ML - [facility] LB XR chest 1V Reviewed date:04/22/2025 06:54:09 PM Interpretation: Performing Lab: Notes/Report: Source Facility: [facility]-[address] [place] [address] [place] [address] XRay Report Signed Patient: KYLAH ROBIN MR#: [id number] : 1945 Acct:[id number] Age/Sex: 79 / F ADM Date: 04/21/25 Loc: ER Attending Dr: Ordering Physician: Dmitriy Lynne Date of Service: 04/21/25 Procedure(s): XR chest 1V Accession Number(s): [id number] cc: Dmitriy Lynne; Dhruv Rubi M.D. [place] [address] Patient Name: KYLAH ROBIN MRN: [facility]:[id number] date: 1945 Sex: F Assigned Patient Location: ER Current Patient Location: ER Accession/Order Number: [id number] Exam Date: 04/21/2025 21:57 Report Date: 04/21/2025 21:58 At the request of: DMITRIY LYNNE MD Procedure: XR chest 1V XR chest 1V 04/21/2025 9:43 PM SIGNS AND SYMPTOMS: hypoglycemia PROTOCOL: Frontal radiograph of the chest COMPARISON: 12/31/2024 FINDINGS: The trachea is midline. Sternotomy wires overlie the mediastinum. The heart and mediastinal structures are within normal limits. The lung parenchyma is clear. The bony thorax is intact. XR/XR chest 1V IMPRESSION: No acute cardiopulmonary pathology. Impression dictated by: Juan Grey M.D. 04/21/2025 9:58 PM Dictation Location: [place] [address] Electronically authenticated by: [id number] Y Date: 04/21/2025 21:58 Dictated By: Juan Grey M.D. Signed By: 04/21/252199 DD/ 57 TD/TT: Operator [employer]: [place] [id number] XRay Report Signed Patient: CINDI ROBIN MR#: [id number] : 1945 Acct:[id number] Age/Sex: 79 / F ADM Date: 04/21/25 Loc: ER Attending Dr: Ordering Physician: Dmitriy Lynne Date of Service: 04/21/25 Procedure(s): XR chest 1V Accession Number(s): [id number] cc: Dhruv Moya M.D. The [address] [address] Patient Name: KYLAH ROBIN MRN: [id number] date: 1945 Sex: F Assigned Patient Location: ER Current Patient Loca tion: ER Accession/Order Numb er: [id number] Exam Date: 04/21/2025 21:57 Report Date: 04/21/2025 21:58 At the request of: DMITRIY LYNNE MD Procedure: XR chest 1V XR chest 1V 9:43 PM SIGNS AND SYMPTOMS: hypoglycemia PROTOCOL: Frontal radiograph of the chest COMPARISON: 12/31/2024 FINDINGS: The trachea is midli ne. Sternotomy wires overlie the mediastinum. The heart and mediastinal structures are within normal limits. The lung parenchyma is clear. The bony thor ax is intact. X R/XR chest 1V IMPRESSION: No acute cardiopulmo nary pathology. Impression dictated by: Juan Grey M.D. 04/21/2025 9:58 PM Dictation Location: [place] [address] Electronically authenticated by: [id number] Y Date: 04/21/2025 21:58 Dictated By: Juan Grey M.D. Signed By: 04/21/252199 DD/ 57 TD/TT: Operator [employer]: Urine Culture - FR Reviewed date:04/26/2025 08:14:27 PM Interpretation: Performing Lab: Notes/Report: [facility] Urine Culture - FR See Below For Report Organism: 1.1 Sterling Count Isolated Antibiotic Interpretation AIDEN Status Urine Culture - FR O:ECESBL Urine Culture - FR Testing performed at [facility] Urine Culture - FR [address] [place] [address] Organism: 1.1 Sterling Count Isolated Antibiotic Interpretation AIDEN Status Urine Culture - FR O:ECESBL Urine Culture - [facility] Testing performed at [facility] Urine Culture - [facility] See Below For Report Organism: 1.1 Sterling Count Isolated Antibiotic Interpretation AIDEN Status Urine Culture - FR O:ECESBL Urine Culture - FR Testing performed at [facility] Urine Culture - [facility] See Below For Report Organism: 1.1 Sterling Count Isolated Antibiotic Interpretation AIDEN Status Urine Culture - FR O:ECESBL Urine Culture - FR Testing performed at [facility] Urine Culture - [facility] >100,000 Organism: 1.1 Sterling Count Isolated Antibiotic Interpretation AIDEN Status Urine Culture - FR O:ECESBL Urine Culture - FR Testing performed at [facility] Urine Culture - [facility] See Below For Report Organism: 1.1 Sterling Count Isolated Antibiotic Interpretation AIDEN Status Urine Culture - FR O:ECESBL Urine Culture - FR Testing performed at [facility] Urine Culture - [facility] Amikacin S F Organism: 1.1 [place] Count Isolated Antibiotic Interpretation AIDEN Status Urine Culture - [facility] O:ECESBL Urine Culture - FR Testing performed at [facility] Urine Culture - [facility] Amoxicillin/Clavula jocelyn S F Organism: 1.1 Sterling Count Isolated Antibiotic Interpretation AIDEN Status Urine Culture - [facility] O:ECESBL Urine Culture - FR Testing performed at [facility] Urine Culture - [facility] Ampicillin R F Organism: 1.1 Sterling Count Isolated Antibiotic Interpretation AIDEN Status Urine Culture - [facility] O:ECESBL Urine Culture - FR Testing performed at [facility] Urine Culture - [facility] Aztreonam R F Organism: 1.1 Sterling Count Isolated Antibiotic Interpretation AIDEN Status Urine Culture - [facility] O:ECESBL Urine Culture - FR Testing performed at [facility] Urine Culture - [facility] Ceftazidime R F Organism: 1.1 [place] Count Isolated Antibiotic Interpretation AIEDN Status Urine Culture - [facility] O:ECESBL Urine Culture - FR Testing performed at [facility] Urine Culture - [facility] Ceftazidime/Avibactam S F Organism: 1.1 Sterling Count Isolated Antibiotic Interpretation AIDEN Status Urine Culture - [facility] O:ECESBL Urine Culture - FR Testing performed at [facility] Urine Culture - [facility] Ceftolozane/Tazobac alvarez S F Organism: 1.1 Sterling Count Isolated Antibiotic Interpretation AIDEN Status Urine Culture - [facility] O:ECESBL Urine Culture - FR Testing performed at [facility] Urine Culture - [facility] Ciprofloxacin R F Organism: 1.1 Sterling Count Isolated Antibiotic Interpretation AIDEN Status Urine Culture - [facility] O:ECESBL Urine Culture - FR Testing performed at [facility] Urine Culture - [facility] Ertapenem S F Organism: 1.1 Sterling Count Isolated Antibiotic Interpretation AIDEN Status Urine Culture - [facility] O:ECESBL Urine Culture - FR Testing performed at [facility] Urine Culture - [facility] Gentamicin R F Organism: 1.1 Sterling Count Isolated Antibiotic Interpretation AIDEN Status Urine Culture - FR O:ECESBL Urine Culture - FR Testing performed at [facility] Urine Culture - [facility] Levofloxacin R F Organism: 1.1 Sterling Count Isolated Antibiotic Interpretation AIDEN Status Urine Culture - [facility] O:ECESBL Urine Culture - FR Testing performed at [facility] Urine Culture - [facility] Meropenem S F Organism: 1.1 Sterling Count Isolated Antibiotic Interpretation AIDEN Status Urine Culture - [facility] O:ECESBL Urine Culture - FR Testing performed at [facility] Urine Culture - [facility] Meropenem/Vaborbact am S F Organism: 1.1 Sterling Count Isolated Antibiotic Interpretation AIDEN Status Urine Culture - [facility] O:ECESBL Urine Culture - FR Testing performed at [facility] Urine Culture - [facility] Nitrofurantoin S F Organism: 1.1 Sterling Count Isolated Antibiotic Interpretation AIDEN Status Urine Culture - [facility] O:ECESBL Urine Culture - FR Testing performed at [facility] Urine Culture - [facility] Tetracycline S F Organism: 1.1 Sterling Count Isolated Antibiotic Interpretation AIDEN Status Urine Culture - [facility] O:ECESBL Urine Culture - FR Testing performed at [facility] Urine Culture - [facility] Tigecycline S F Organism: 1.1 [place] Count Isolated Antibiotic Interpretation AIDEN Status Urine Culture - [facility] O:ECESBL Urine Culture - FR Testing performed at [facility] Urine Culture - [facility] Tobramycin R F Organism: 1.1 [place] Count Isolated Antibiotic Interpretation AIDEN Status Urine Culture - [facility] O:ECESBL Urine Culture - FR Testing performed at [facility] Urine Culture - [facility] Ampicillin/Sulbactam S F Organism: 1.1 Sterling Count Isolated Antibiotic Interpretation AIDEN Status Urine Culture - [facility] O:ECESBL Urine Culture - FR Testing performed at [facility] Urine Culture - [facility] Cefazolin R F Organism: 1.1 Sterling Count Isolated Antibiotic Interpretation AIDEN Status Urine Culture - [facility] O:ECESBL Urine Culture - FR Testing performed at [facility] Urine Culture - [facility] Cefepime R F Organism: 1.1 [place] Count Isolated Antibiotic Interpretation AIDEN Status Urine Culture - [facility] O:ECESBL Urine [facility] - [facility] Testing performed at [facility] Urine Culture - FR Ceftriaxone R F Organism: 1.1 [place] Count Isolated Antibiotic Interpretation AIDEN Status Urine Culture - [facility] O:ECESBL Urine Culture - [facility] Testing performed at [facility] Urine Culture - FR Cefuroxime R F Organism: 1.1 [place] Count Isolated Antibiotic Interpretation AIDEN Status Urine Culture - [facility] O:ECESBL Urine [facility] - [facility] Testing performed at [facility] Urine Culture - FR Piperacillin/Tazoba ctam S F Organism: 1.1 Sterling Count Isolated Antibiotic Interpretation AIDEN Status Urine Culture - FR O:ECESBL Urine Culture - [facility] Testing performed at [facility] Urine Culture - FR Trimethoprim/Sulfa R F Organism: 1.1 Sterling Count Isolated Antibiotic Interpretation AIDEN Status Urine Culture - FR O:ECESBL Urine Culture - [facility] Testing performed at [facility] Performing Lab: see note ML - [facility] LB SEE REPORT - Mix Chemist Id information not found for OBX-specific loan administrator legend UA Micro, reflex to culture Reviewed date:04/22/2025 06:54:09 PM Interpretation: Performing Lab: Notes/Report: [facility] , Color Urine LT. YELLOW YELLOW Clarity Urine CLEAR CLEAR Specific [place] Urine 1.015 1.005-1.025 pH Urine 5.5 5.0-9.0 Protein Urine 30 NEG/TRACE mg/dL Glucose Urine UA NEGATIVE NEGATIVE mg/dL Bilirubin Urine NEGATIVE NEGATIVE Ketones Urine NEGATIVE NEGATIVE mg/dL Blood Urine NEGATIVE NEGATIVE Nitrite Urine POSITIVE NEGATIVE Urobilinogen Urine 0.2 0.2-1.0 EU/dL Leukocyte Esterase Urine MODERATE NEGATIVE WBC Urine 10-20 NONE SEEN #/HPF RBC Urine NONE SEEN 0-2 #/HPF Bacteria Urine LARGE NONE SEEN #/HPF Mucus Urine NONE SEEN NONE SEEN Squamous Epithelial Cell Urine RARE NONE/RARE #/LPF Crystals Seen? None Seen None Seen #/HPF Cast Seen? NONE SEEN NONE SEEN #/LPF Urine Culture Indicated YES-[facility] Performing Lab: see note ML - [facility] LB Troponin I High Sensitivity Reviewed date:04/22/2025 06:54:09 PM Interpretation: Performing Lab: Notes/Report: [facility] , Troponin I High Sensitivity 11.0 4.0-51.3 pg/mL REFERENCE LIMIT (URL) OF TROPONIN, DEFINED THE 99TH 99TH PERCENTILE = 51.4 PG/ML NOTE: HIGH-SENSITIVITY TROPONIN ASSAY IS NOT INTENDED TO BE DIAGNOSIS. USED IN ISOLATION BUT SHOULD BE INTERPRETED IN CONJUNCTION CUT-OFF POINTS HAVE BEEN ESTABLISHED BASED ON THE FOURTH WITH OTHER DIAGNOSTIC AND CLINICAL INFORMATION. PERCENTILE OF cTnI DISTRIBUTION IN A REFERENCE POPULATION, UNIVERSAL DEFINITION OF MYOCARDIAL INFARCTION. THE UPPER HAS BEEN CONFIRMED THE DECISION THRESHOLD FOR CO Performing Lab: see note ML - [facility] LB PROF CHEM 8 (BAS METB) Reviewed date:04/22/2025 06:54:09 PM Interpretation: Performing Lab: Notes/Report: [facility] , Sodium 141 136-145 mmol/L Potassium 3.5 3.5-5.1 mmol/L Chloride 102 98-107 mmol/L Carbon Dioxide 25.0 21.0-32.0 mmol/L Anion Gap 17.5 Glucose 60 74-106 mg/dL Blood Urea Nitrogen 43.0 7.0-18.0 mg/dL Creatinine 1.92 0.55-1.02 mg/dL Estimated GFR ( Shruthi 30 >=60 mL/min/1.73m 2 Estimated GFR (Non- Trang 25 >=60 mL/min/1.73m 2 BUN Creatinine Ratio 22.4 Calcium 9.4 8.5-10.1 mg/dL Performing Lab: see note ML - [facility] LB CBC AUTO DIFF Reviewed date:04/22/2025 06:54:09 PM Interpretation: Performing Lab: Notes/Report: [facility] , White Blood Count 9.3 4.0-11.0 10 3/uL Red Blood Count 3.46 4.20-5.40 10 6/uL Hemoglobin 10.6 12.0-16.0 g/dL Hematocrit 31.4 36.0-48.0 % Mean Corpuscular Volume 90.8 81.0-99.0 fL Mean Corpuscular Hemoglobin 30.6 26.7-34.0 pg Mean Corpuscular HGB Conc 33.8 29.9-35.2 g/dL Red Cell Distribution Width 15.4 11.0-15.0 % Platelet Count 195 150-450 10 3/uL Mean Platelet Volume 9.4 9.5-13.5 fL Neutrophils Percent Auto 63.4 43.0-75.0 % Lymphocytes Percent Auto 21.3 20.5-60.0 % Monocytes Percent Auto 13.7 1.7-12.0 % Eosinophils Percent Auto 1.1 0.9-7.0 % Basophils Percent Auto 0.3 0.2-2.0 % Immature Granulocytes Pct Auto 0.2 0.0-0.5 % Neutrophils Absolute Auto 5.9 1.4-6.5 10 3/uL Lymphocytes Absolute Auto 2.0 1.2-3.8 10 3/uL Monocytes Absolute Auto 1.3 0.3-0.8 10 3/uL Eosinophils Absolute Auto 0.1 0.0-0.7 10 3/uL Basophils Absolute Auto 0.0 0.0-0.1 10 3/uL Immature Granulocytes Abs Auto 0.02 0.00-0.03 10 3/uL Performing Lab: see note ML - [facility] LB PTH, Intact Reviewed date:06/10/2024 07:36:23 PM Interpretation: Performing Lab: Notes/Report: [facility] , PTH, Intact 62 15-65 pg/mL [address] [place], [place] [id number] Stitch Separator: Ashok Benson PhD, Phone: [phone] [facility] Performing Lab: see note - [facility] LB Reason For Referral No Information Medications Medication SIG (Take, Route, Frequency, Duration) Notes Start Date End Date Status hydrALAZINE HCl 50 MG 1 tablet with food Orally Three times a day Active FanTrailTouch Ultra 2 Act janet Ferrous Sulfate 325 (65 Fe) MG 1 tablet Orally Twice Daily Active NovoLOG FlexPen 100 UNIT/ML 12 in mornin g, 16 at lunch, 22 at supper Subcutaneous Active Lancets Super Thin A ctive OneTouch Ultra Test test blood glucose d aily for 90 days Active Isosorbide Mononitrate ER 120 MG 1 tablet Oral once daily for 30 days Active OneTouch Ultra Blue Active Allopurinol 300 MG 1 tablet Orally Once a day for 30 days Active Levothyroxine Sodium 100 mcg TAKE 1 TABLET BY MOUTH IN THE MORNING ON AN EMPTY STOMACH for 90 Active Synvisc One 48 MG/6ML Inject Intra-artic ular In right knee for 180 days 04/20/2025 Active Accu-Chek Holly Plus w/Device as directed Active Lasix 20 MG 1 tablet Orally Once a day Active Pantoprazole Sodium 40 mg TAKE 1 TABLET BY MOUTH DAILY for 90 Active Carvedilol 25 mg TAKE 1 TABLET BY CHA TH TWICE DAILY (7AM and 7PM) WITH FOOD for 30 Active Lipitor 80 MG 1 tablet Orally Once a day Active Aspirin 81 81 MG 1 tablet Orally Once a day Active Liothyronine Sodium 5 mcg Take 1 tablet orally once daily for 30 days Active Tresiba FlexTouch 100 UNIT/ML 30 units Subcutaneous Twice Daily Active cloNIDine HCl 0.1 MG 1 tablet every four hours as needed Orally Q4 for 30 days As needed Active Macrobid 100 MG 1 capsule with food Orally every 12 hrs for 5 day(s) 04/26/2025 Active Nitroglycerin 0.4 MG as directed Sublingual PRN Active Diflucan 100 MG 1 tablet Orally bebo y for 10 days 04/22/2025 Active Magnesium Oxide 400 MG 1 tablet Orally t hree times daily Active Immunizations Vaccine Route Administration Date Status Comme nts Flu, Fluad (8796-3312) (63119) 65 yrs+, single-dose syringe IM Intramuscular 07/11/2023 Administered Flu, Fluad (81423) 65 yrs and older, single-dose syringe IM [...] Problem Status W/U Status Risk Notes Problem 694580270 Peripheral vascular disease, unspecified (I73.9) Active confirmed Problem 51711214 Age-related osteoporosis without current pathological fracture (M81.0) Active confirmed Problem 467119847 Chronic kidney disease, unspecified (N18.9) Active confirmed Problem 863925431 Anemia in chroni c kidney disease (D63.1) Active confirmed Problem Hypomagnesemia (479970068) Hypomagnesemia (E83.42) Active confirmed Problem Hyperkalemia (39603969) Hyperkalemia (E87.5) Active confirmed Problem Hypertensive heart failure (37337589) Hypertensive heart disease with heart failure (I11.0) Active confirmed Problem Unstable angina (5404131) Unstable angina (I20.0) Active confirmed Problem 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) Active confirmed Problem 830580534 Disorder of arteries and arterioles, unspecified (I77.9) Active confirmed Problem Osteoarthritis of knee (543802725) Unilateral primary osteoarthritis, left knee (M17.12) Active confirmed Problem Collapsed vertebra (85568438) Collapsed vertebra, not elsewhere classified, lumbar region, subsequent encounter for fracture with delayed healing (M48.56XG) Active confirmed Problem Chronic kidney disease stage 4 (274541929) Chronic kidney disease, stage 4 (severe) (N18.4) Active confirmed Problem Chest pain (10638389) Chest pain (R07.9) Active confirmed Problem Hyperlipidemia (60122998) Hyperlipidemia (E78.5) Active confirmed Problem Mitral regurgitation (75420190) Mitral regurgitation (I34.0) Active confirmed Problem Hypertension (67908890) Hypertension (I10) Active confirmed Problem Gastroesophageal reflux disease (147384166) GERD (gastroesophageal reflux disease) (K21.9) Active confirmed Problem Hypothyroidism (76052755) Hypothyroidism (E03.9) Active confirmed Problem Coronary artery disease (46520936) CAD (coronary artery disease) (I25.10) Active confirmed Problem Hypertension (78795487) HTN (hypertension) (I10) Active confirmed Problem Edema (37946966) Edema (R60.9) Active confirmed Problem Coronary artery disease (49270023) Coronary artery disease (I25.10) Active confirmed Problem Arthritis (1912839) Arthritis (M19.90) Active c onfirmed Problem Osteopenia (128539894) Osteopenia (M85.80) Active confirmed Problem Gout (11736133) Gout (M10.9) Active confirmed Problem Dyspnea (085771106) Dyspnea (R06.00) Active con firmed Problem Osteoarthritis of knee (348753097) Osteoarthritis of knee (M17.9) Active confirmed Problem Urinary tract infectious disease (26285782) UTI (urinary tract infection) (N39.0) Active confirmed Problem Paroxysmal atrial fibrillation (032366289) Paroxysmal atrial fibrillation (I48.0) Active confirmed Problem Acute sinusitis (99316487) Acute sinusitis (J01.90) Active confirmed Problem Allergic rhinitis (07899736) Allergic rhinitis (J30.9) Active confirmed Problem Diabetes mellitus type 2 (disorder) (01448611) DM2 (diabetes mellitus, type 2) (E11.9) Active confirmed Problem Long-term 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 (510024317) 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 project 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 (Z79.4) Active confirmed Problem Acute bronchitis (79295891) Acute bronchitis (J20.9) Active confirmed Problem Acquired hypothyroidism (826693202) Acquired hypothyroidism (E03.9) Active confirmed Problem Cellulitis (509855743) Cellulitis (L03.90) Active confirmed Problem Cataract (597157876) Cataract (H26.9) Active confirmed Problem Mitral insufficiency (53170968) Mitral insufficiency (I34.0) Active confirmed Problem Contact dermatitis (48531886) Contact dermatitis (L25.9) Active confirmed Problem Cervical arthritis (863634012) Cervical arthritis (M46.92) Active confirmed Problem Diabetic retinopathy (7292304) Diabetic retinopathy (E11.319) Active confirmed Problem 125917439 Low vitamin B12 level (E53.8) Active confirmed Problem Overweight (166689592) Over weight (E66.3) Active confirmed Problem Iron deficiency anemia (03616380) Anemia, iron deficiency (D50.9) Active confirmed Problem Ventricular hypertrophy (576593487) Ventricular hypertrophy (I51.7) Active confirmed Problem Primary hypothyroidism (78211064) Primary hypothyroidism (E03.9) Active confirmed Problem Iron deficiency anemia (89359190) Fe deficiency anemia (D50.9) Active confirmed Problem Hypertensive urgency (398901316) Hypertensive urgency (I10) Active confirmed Problem Vaginal discharge (529044310) Vaginal discharge (N89.8) Active confirmed Problem Type 2 diabetes mellitus with peripheral angiopathy (362015546) Diabetes mellitus type 2 with peripheral artery disease (E11.51) Active confirmed Problem At risk for falls (464080127) At risk for falls (Z91.81) Active confirmed Problem Mild nonproliferative retinopathy due to type 2 diabetes mellitus (367300693898233) Type 2 diabetes mellitus 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, 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) Active confirmed Problem Hypertensive urgency (962335856) Hypertensive urgency (I16.0) Active confirmed Problem Hypertensive emergency (520230110684368) Hypertensive emergency (I16.1) Active confirmed Problem Diabetic renal disease (806793643) 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) Active confirmed Problem Osteoarthritis of knee (778256598) Osteoarthritis of right knee (M17.11) Active confirmed Problem Diabetes mellitus (01745372) Diabetes mellitus (E11.9) Active confirmed Problem COVID-19 (216183828) COVID-19 (U07.1) Active confirmed Problem Chronic kidney disease stage 4 (519366894) Acute worsening of stage 4 chronic kidney disease (N18.4) Active confirmed Problem Pneumonia caused by Severe acute respiratory syndrome coronavirus (disorder) (444057625) Pneumonia due to Coronavirus disease 2019 (J12.82) Active confirmed Problem Low back pain (027836369) Low back pain, unspecified (M54.50) Active confirmed Problem Low back pain (finding) (589184232) Other low back pain (M54.59) Active confirmed Vital Signs Heart Rate 67 /min 12/31/2024 Oximetry 98 % 03/08/2025 Blood pressure diastolic 78 mm Hg 04/29/2025 Height 66 in 04/29/2025 Blood pressure systolic 164 mm Hg 04/29/2025 Weight 191.2 lbs 04/26/2025 BMI 30.86 kg/m2 04/26/2025 Encounters Encounter Location Date Provider Diagnosis [facility] [address] [place] [address] 03/10/2025 Jeff Rubi [facility] [address] [place] [address] 04/13/2025 Jeff Rubi Right knee pain M25. 561 [facility] [address] [place] [address] 04/14/2025 Jeff Rubi [facility] [address] [place] [address] 04/22/2025 Jeff Rubi [facility] [address] [place] [address] 04/26/2025 Jeff Rubi [facility] [address] [place] [address] 04/27/2025 Jeff Rubi [facility] [address] [place] [address] 12/22/2024 Jeff Rubi [facility] [address] [place] [address] 01/18/2025 Jeff Connellyy [facility] [address] [place] [place] [address] 01/18/2025 Jeff Rubi [facility] [address] [place] [address] 02/16/2025 Jeff mary [facility] [address] [facility] [place] [address] 03/03/2025 Jeff Hoy Right knee pain M25. 561 [facility] [address] [facility] [place] [address] 03/03/2025 Jeff Rubi [facility] [address] [facility] [place] [address] 09/04/2024 Jeff Hoy UTI (urinary tract infection) N39.0 [facility] [address] [facility] [place] [address] 09/04/2024 Jeff [facility] [address] [facility] [place] [address] 09/07/2024 Jeff Hoy UTI (urinary tract infection) N39.0 [facility] [address] [place] [address] 11/24/2024 Jeff Rubi [facility] [address] [place] [address] 12/16/2024 Jeff Hoy Chronic kidney disea se, stage 4 (severe) N18.4 [facility] [address] [place] [address] 12/17/2024 Jeff Hoy Chronic kidney disea se, stage 4 (severe) N18.4 [facility] [address] [facility] [place] [address] 06/18/2024 Jeff Connellymary [facility] [address] [facility] [address] 06/26/2024 Jeff Connellymary [facility] [address] [facility] [place] [address] 06/29/2024 Jeff Connellymary [facility] [facility] [address] [facility] [address] 08/14/2024 Jeff Rubi [facility] [address] [facility] [address] 09/02/2024 Jeff Connellymary [facility] [address] [facility] [address] 09/02/2024 Jeff Connellymary [facility] [address] [facility] [address] 05/12/2024 Jeff mary [facility] [address] [facility] [address] 05/28/2024 Jeff Hoy Chest pain R07.9 ; Hypertension I10 ; Acute UTI N39.0 ; Chronic kidney disease, stage 4 (severe) N18.4 ; Hyperkalemia E87.5 and Anemia, unspecified D64.9 [facility] [address] [facility] [address] 06/10/2024 Jeff Rubi [facility] [address] [facility] [address] 06/09/2024 Jeff Rubi Encounter for Medica re annual wellness exam Z00.00 and Age-related osteoporosis without current pathological fracture M81.0 [facility] [address] [facility] [address] 04/29/2025 Jeff Hoy Hypertension I10 and Osteoarthritis of right knee M17.11 [facility] [address] [facility] [address] 04/30/2024 Jeff Hoy Contact dermatitis L 25.9 [facility] [address] [facility] [address] 06/18/2024 Jeff Hoy Chest pain R07.9 and Hypertension I10 [address] [place] [address] 09/22/2024 Jeff Hoy Dyspnea R06.00 and A cute bronchitis J20.[address] [address] 12/31/2024 Jeff Hoy Chest pain R07.9 ; Hypertension I10 ; Coronary artery disease I25.10 and Dyspnea R06.[address] [address] 03/05/2025 Jeff Hoy Type 2 diabetes diony itus 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, bilateral E11.[address] [address] 04/26/2025 Jeff Hoy Hypertension I10 ; G ERD (gastroesophageal reflux disease) K21.9 and Type 2 diabetes mellitus 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, bilateral E11.[address] [address] 11/18/2024 Jeff Hoy Paroxysmal atrial fibrillation I48.0 ; Chronic kidney disease, stage 4 (severe) N18.4 ; Acute worsening of stage 4 chronic kidney disease N18.4 ; Hypertensive heart disease with heart failure I11.0 and Chronic kidney disease due to diabetes mellitus E11.[address] [address] 03/08/2025 Jeff Hoy Hypertension I10 ; Paroxysmal atrial fibrillation I48.0 and Diabetes mellitus type 2 with peripheral artery disease E11.[address] [address] 11/24/2024 Jeff Hoy HTN (hypertension) I [address] [address] 04/14/2025 Jeff Hoy [address] [address] 10/13/2024 Jeff Hoy Low vitamin B12 leve l E53.[address] [address] 11/13/2024 Jeff Hoy Low vitamin B12 leve l E53.8 [facility] [address] [place] [address] 12/11/2024 Jeff Hoy Low vitamin B12 leve l E53.8 [facility] [address] [facility] [address] 01/11/2025 Jeff Hoy Low vitamin B12 leve l E53.8 [facility] [address] [facility] [address] 02/10/2025 Jeff Hoy Low vitamin B12 leve l E53.8 [facility] [address] [place] [address] 03/15/2025 Jeff Hoy Low vitamin B12 leve l E53.8 [facility] [address] [facility] [address] 05/12/2024 Jeff Hoy Low vitamin B12 leve l E53.8 [facility] [address] [facility] [place] [address] 06/15/2024 Jeff Hoy Low vitamin B12 leve l E53.8 [facility] [address] [place] [address], [place] [address] 07/08/2024 Jeff Hoy Encounter for immuni zation Z23 [facility] [address] [place] [address] 08/10/2024 Jeff Hoy Low vitamin B12 leve [...] disease, stage 4 (severe) (ICD-10 - N18.4) 04/30/2024 Contact dermatitis (ICD-10 - L25.9) shot [...] Low vitamin B12 level (ICD-10 - E53.8) 04/26/2025 Hypertension (ICD-10 - I10) 04/26/2025 GERD (gastroesophageal reflux disease) (ICD-10 - K21.9) 04/29/2025 Hypertension (ICD-10 - I10) up alittel bit - discussed diet cahnges - keep with meds 04/29/2025 Osteoarthritis of right knee (ICD-10 - M17.11) 05/28/2024 Chest pain (ICD-10 - R07.9) 05/28/2024 [...] M25.561) 05/28/2024 Acute UTI (ICD-10 - N39.0) 04/26/2025 Type 2 diabetes mellitus 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, bilateral (ICD-10 - E11.3293) leavign sugars the same - doing well with eating mor consitently 03/08/2025 Diabetes mellitus type 2 with peripheral artery disease (ICD-10 - E11.51) 12/31/2024 Coronary artery disease (ICD-10 - I25.10) 11/18/2024 Acute worsening of stage 4 chronic [...] E11.22) 05/28/2024 Anemia, unspecified (ICD-10 - D64.9) 04/29/2025 Other Synvisc today Plan Of Treatment Pending Test Test Name [...] Sensitivity Troponin 12/31/2024 [place] Ankle Brachial Index (65372) 024 BNP 06/18/2024 CULTURE URINE 06/18/2024 CULTURE [...] Coverage End Date [employer] [address] [place], [place] [phone] [id number] [place] Kylah Robin Self - patient is [...] 03/15/2025 1 mL Kenalog-40 04/30/2024 80 mg Synvisc One 04/29/2025 6 mL Medical (General) History Medical History History ICD [...]
--- OUTSIDE RECORDS SUMMARY | 2025-04-30 19:18 | XMS_ITS | Encounter Summary ---
Author Organization [facility] Address [address] [place] [address], [address] [place] [address] Care Team Providers Care Cleater Name Role Phone Merrick Rubi MD Primary Care Provider [phone] Encounter Details Date Type Department Care Team (Late st Contact Info) Description 01/31/2016 Post-op Telephone [facility] General Surgery [address] [place], [place] [id number] Mayram Amador RN Social History Tobacco Use Types [...] on filedocumented in this encounter Care Teams Cleater Relationship Specialty Start Date End Date Merrick Rubi MD [address] [place] [address] PCP - General 01/17/16 documented as of this encounter
[2025-04-30 19:21] VITALS: BP 169/115; PULSE 85; TEMP 36.7; O2SAT 97; BMI 30.7
--- OUTSIDE RECORDS SUMMARY | 2025-04-30 19:34 | XMS_ITS | CCD ---
Author Organization [facility] Care Team Providers Care Business Law Instructor Name Role Phone PHYSICIAN, DEFAULT Unavailable Unavailable PHYSICIAN, DEFAULT Unavailable Unavailable Doreen, Ron Unavailable Óscar Ackermanduc Unavailable Iona Jana Unavailable FIORELLAY ., DR [employer] Unavailable [...] Unavailable Dhruv Rubi MD Primary Care Provider [phone] Dhruv Rubi MD Primary Care Provider [phone] Dhruv Rubi MD Primary Care Provider [phone] Dhruv Rubi MD Primary Care Provider STEFANO CATHERINE Attending Unavailable ALEJANDRO ORTIZ Attending Unavailable STEFANO CATHERINE Attending Unavailable Dhruv Rubi MD Primary Care Provider [phone] LORRAINE MAYER Attending Unavailable LORRAINE MAYER Attending Unavailable GREG TINEO A Attending Unavailable GA LAI Attending Unavailable NOMAN, GREG A Attending Unavailable NOMAN, GREG A Attending Unavailable PETSOFIYA, GREG A Attending Unavailable GA LAI Attending Unavailable LORRAINE MAYER Attending Unavailable LORRAINE MAYER Referring Unavailable GA LAI Attending Unavailable Dhruv Rubi MD Primary Care Provider [phone] Dmitiry Lynne MD Attending Provider [phone] Dmitriy Lynne Attending Unavailable Dmitriy Lynne Admitting Unavailable Dhruv Rubi Primary Care Unavailable Allergies Allergy Classification Reported Allergen(s) Allergy Type Date of Onset Reaction(s) Facility (20 sources) amLODIPine; Translations: [AMLODIPINE] Drug Allergy 03-28-20 05 Unknown, [facility] Repository (20 sources) Amoxicillin / Clavulanate Drug Allergy 11-23-19 [facility] [employer] Other (20 sources) Contrast media Propensity to adverse reactions Unknown [facility] Other (2 sources) Doxazosin; Translations: [doxazosin] Drug Allergy Unknown [facility] [facility] Other (20 sources) Sulfamethoxazole / Trimethoprim Drug Allergy 11-23-19 [facility] [employer] Other (20 sources) Doxazosin; Translations: [DOXAZOSIN] Drug Allergy 11-23-19 21 Unknown, [place] [facility] Repository (9 sources) Amoxicillin / Clavulanate; Translations: [Augmentin] Drug Allergy 11-16-19 16 Unknown [facility] Repository (1 source) amLODIPine Drug Allergy 04-25-20 14 [facility] Repository (1 source) Sulfamethoxazole / Trimethoprim Drug Allergy 03-09-20 13 [facility] Repository (2 sources) Sulfamethoxazole / Trimethoprim; Translations: [SULFAMETHOXAZOLE-T RIMETHOPRIM] Drug Allergy 08-04-20 15 [facility] Repository (20 sources) IODINATED CONTRAST MEDIA; Translations: [IODINATED CONTRAST MEDIA] Propensity to adverse reactions to drug (disorder) 11-23-19 21 Other [facility] Repository (20 sources) AMOXICILLIN-POT CLAVULANATE; Translations: [AMOXICILLIN-POT CLAVULANATE] Propensity to adverse reactions to drug (disorder) 11-23-19 21 Unknown [facility] Repository (20 sources) Amoxicillin Drug Allergy 03-12-20 Unknown [facility] Healthcare (20 sources) Doxazosin Drug Allergy 03-12-20 Unknown [facility] Healthcare (20 sources) Sulfamethoxazole; Translations: [SULFAMETHOXAZOLE] Allergy to substance 03-12-20 Unknown [facility] Healthcare (20 sources) Trimethoprim Drug Allergy 03-12-20 Unknown [facility] Healthcare (3 sources) Clavulanate; Translations: [clavulanic acid] Drug Allergy 01-15-20 Unknown Reaction [facility] (1 source) amLODIPine Drug Allergy 01-15-20 [facility] Repository (1 source) Amoxicillin Drug Allergy 01-15-20 [facility] Repository (1 source) Doxazosin Drug Allergy 01-15-20 [facility] Repository (1 source) Sulfamethoxazole Drug Allergy 01-15-20 [facility] Repository (1 source) Trimethoprim Drug Allergy 01-15-20 [facility] Repository Medications Current Medications Medication [...] take 1 tablet by mouth once daily Start: 10-09-2019 End: 06-15-2024 Allopurinol 300 mg [...] take 1 tablet by mouth once daily Start: 01-11-2021 take 1 tablet by enzo th once daily aspirin 81 mg Indications: Hypertensive urgency , Shortness of breath , H/O four vessel coronary artery bypass graft , Atherosclerosis of [place] coronary artery of [place] heart without angina pectoris , Paroxysmal atrial [...] (LIPITOR) 80 mg tablet Indications: Atherosclerosis of [place] coronary artery of [place] heart without angina pectoris , H/O four vessel coronary artery bypass graft , Hyperlipidemia, unspecified hyperlipidemia type TAKE 1 TABLET BY MOUTH NIGHTLY 45 tablet 03/12/2025 Active Start: 12-27-2022 End: 03-12-2025 take 1 tablet by mouth once daily Atorvastatin 80 mg tablet Discontinued 1 TAB PO Daily December 04, 2023 1:00am June 15, 2024 10:37am FreeTextSi tablet Orally Once a day; Note: Source Status: Taking; Provider: Doreen Velasquez ( ) ATORVASTATIN BASSAM CIUM PO Atorvastatin Calcium Active [...] take 1 tablet by mouth twice daily Start: 01-17-2024 take 2 tablets by mo uth once in the morning, then take 2 [...] PO Ca rvedilol Active cholecalciferol 0.125 mg ora l tablet (5 sources) Vitamin D Start: 06-15-2024 take 1 tablet by enzo th once daily End: 01-17-2024 take 1 tablet by mouth [...] Active cloNIDine hydrochloride 0.1 mg oral tablet (11 sources) Central alpha-2 Adrenergic Agonist Start: take 1 tablet by mouth every four hours as needed Start: 01-01-2024 End: 01-17-2024 take 2 tablets [...] Orally every 12 hours Active epoetin johnna-epbx 40762 UNT/ML Injectable Solution [Retacrit] (14 sources) Retacrit 71787 U NIT/ML as directed Injection Active ferrous sulfate 325 mg oral tablet (20 sources) Start: 06-15-2024 take 1 tablet by enzo th twice daily Start: 10-09-2019 End: 12-04-2023 take 1 tablet by mouth once daily Ferrous Sulfate 325 mg (65 mg iron) Tablet Discontinued 325 MG PO Daily October 09, 2019 1:00am December 04, 2023 9:54am take 1 tablet by enzo th twice daily take 1 tablet by enzo th twice daily Ferrous Sulfate 325 (65 Fe) MG 1 tablet Orally bid for 90 day(s) Active hydrALAZINE hydrochloride 50 mg oral tablet (4 sources) Arteriolar Vasodilator Start: 01-14-2025 take 1 tablet by mouth three times daily Start: 06-15-2024 End: 01-14-2025 take 1 tablet [...] Units total daily use. 06/15/2024 Active Start: 12-04-2023 End: 06-15-2024 Insulin Aspart U-100 (Novolo g Flexpen U-100 Insulin) 100 unit/mL (3 mL) insulin pen Discontinued SUBCUT December 04, 2023 1:00am June 15, 2024 10:37am FreeTextSig: Use as Directed Subcutaneous 10 units in am, 15 units at noon, 20 units at supper.; Note: Source Status: Taking; Provider: Doreen Velasquez ( ) Start: 10-09-2019 End: 06-15-2024 inject 4 [IU] [...] units at supper. Active 3 ml insulin degludec 100 unt/ml pen injector (1 source) Insulin Analog Start: 01-14-2025 Insulin Degludec (Tresiba Flextouch U-100) 100 unit/mL (3 mL) insulin pen (1 source) Start: 01-14-2025 Insulin Deglud ec (Tresiba Flextouch U-100) 100 unit/mL (3 mL) insulin pen Active 30 UNIT SUBCUT Twice daily January 14, 2025 12:00am 24 hr isosorbide mononitrate 120 mg extended release oral tablet (11 sources) Nitrate Vasodilator Start: 06-15-2024 take 1 tablet by mouth once daily in the morning, then take 1 tablet by mouth every twenty-four hours Start: 01-17-2024 take 1 tablet by enzo th once daily isosorbide mononitrate (IMDUR) 30 mg [...] l-Thyroxine Start: 06-15-2024 take 1 tablet by enzo th once daily Start: 10-09-2019 End: 12-04-2023 take 1 tablet by mouth once daily Levothyroxine 125 mcg tablet Discontinued 125 MCG PO Daily October 09, 2019 1:00am December 04, 2023 9:51am take 2 tablets by mo uth before mealtime levothyroxine (Synthroid, Levoxyl) 150 MCG [...] by mouth once daily in the morning Start: 12-05-2021 End: 06-15-2024 take 2 tablets by mouth once daily Liothyronine 5 mcg tablet Discontinued MCG PO December 04, 2023 1:00am June 15, 2024 10:37am FreeTextSi tablets on an empty stomach Orally Once a day; Note: Source Status: Taking; Provider: Doreen Velasquez ( ) take 2 tablets by mo [facility] every twenty-four hours Liothyronine Sodium 5 MCG 2 tablets on an empty stomach Orally Once a day Active take 2 tablets by mo ut every twenty-four hours lisinopril 20 mg oral tablet (20 sources) Angiotensin Converting Enzyme Inhibitor Start: 01-17-2024 take 1 tablet by mouth in the morning lisinopriL (PRINIVIL,ZESTRIL) 20 mg tablet Take 1 tablet (20 mg total) by mouth in the morning. 01/17/2024 Active Start: 12-17-2023 End: 06-15-2024 take 1 tablet by mouth once daily Lisinopril 20 mg tablet Discontinued 0 .ROUTE .COMPLEX December 17, 2023 5:41pm June 15, 2024 [...] 1 tablet by mouth three times daily Start: 10-09-2019 End: 06-15-2024 take 1 tablet [...] For Her 50 + - Orally Active vxoyjdzyuwjk-dxfa-sgyzjmuo-f olic acid (Centrum) chewable tablet (20 sources) multivitamin-iro w-yjnzmrwy-wblrg acid (Centrum) chewable tablet Chew 1 tablet Daily Active multivitamin-iro e-reykjmqa-oufee acid (Centrum) chewable tablet Chew 1 tablet in the morning. Active nitroglycerin 0.4 mg sublingual tablet (4 sources) Nitrate Vasodilator Start: 10-09-2019 End: 06-15-2024 pantoprazole 40 mg delayed release oral tablet (20 sources) Proton Pump Inhibitor Start: 12-19-2020 take 1 tablet by mouth once daily PANTOPRAZOLE SOD IUM PO Active PANTOPRAZOLE SOD [...] not crush, chew, or split. Active retacrit 36143 unit/ml solution (5 sources) Retacrit 67756 U NIT/ML as directed Injection Active Sennosides-Docusate [...] (Original) alendronic acid 70 mg oral tablet (17 sources) Bisphosphonate Start: 10-09-2019 End: 12-04-2023 take [...] calcium carbonate 1250 mg or al tablet (4 sources) Start: 10-09-2019 End: 06-15-2024 Calcium Carbonate [...] 1 tablet by enzo th once daily Start: 06-17-2024 End: 01-14-2025 take 1 tablet [...] 1 TABLET BY MOUTH ONCE DAILY for Active hydroCHLOROthiazide 25 mg oral tablet (20 [...] L Take by mouth daily. 0 Active Utcmrnccxsah-Prvk-Fhszl Acid (Centrum) 18-400 mg-mcg Tablet (2 sources) Start: 10-09-2019 End: 06-15-2024 take 1 tablet by mouth once daily Pkyjeeencpat-Fsli-Fpssk Acid (Centrum) 18-400 mg-mcg Tablet Discontinued 1 TAB PO Daily October 09, 2019 1:00am June 15, 2024 10:35am Nitrofurantoin Monohyd/M-Cryst 100 mg capsule (1 source) Start: 09-10-2024 End: 09-10-2024 take 1 capsule by mouth twice daily Nitrofurantoin Monohyd/M-Cryst 100 mg capsule Discontinued 100 MG PO Twice daily September 10, 2024 1:00am September 10, 2024 10:28am nitrofurantoin, macrocrystals 25 mg / nitrofurantoin, monohydrate 75 mg oral capsule (1 source) Nitrofuran Antibacterial Start: 09-10-2024 End: 09-10-2024 take 1 capsule [...] 1000 mL simvastatin 80 mg oral tablet (2 sources) HMG-CoA Reductase Inhibitor Start: 10-09-2019 End: 12-04-2023 [...] angina pectoris; Translations: [Atherosclerotic heart disease of [place] coronary artery without angina pectoris] Onset: 1 [...] Hyperkalemia Episodic Genitourinary symptoms and ill-defined conditions (10 sources) Dysuria; Translations: [Microalbuminuria] Onset: 2 07-13-2024 [...] Long-term 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; Translations: [director global development (current) use of insulin] 07-13-2024 Episodic Other [...] hyperpigmentation] 03-23-2025 Episodic Peripheral and visceral atherosclerosis (2 sources) Peripheral vascular disease, unspecified; Translations: [Peripheral arterial [...] Test Name Value Interpretation Reference Range Facility Urine Cultureon 04-21-2025 Bacteria identified Cx Nom (U) ORGANISM: Escherichia coli (ESBL) (O:ESCCOLESBL) Arverne Count >100,000 Aerobic AIDEN Charge ([id number]) ------ SUSCEPTIBILITY ----- ORGANISM: O:ESCCOLESBL ANTIBIOTIC INTERPRETATION AIDEN Amikacin S <16 Amoxacillin/K Clavulanate S <8 Ampicillin R >16 Ampicillin/Sulbacta m S 88/4 Aztreonam R >16 Cefazolin R >16 Cefepime R >16 Ceftazidime R >16 Ceftazidime/Avibact am S <4 Ceftolozane/Tazobac alvarez S <2 Ceftriaxone R >32 Cefuroxime R >16 Ciprofloxacin R >2 Ertapenem S <0.5 Gentamicin R >8 Levofloxacin R >4 Meropenem S <1 Meropenem/Vaborbact am S <2 Nitrofurantoin S <32 Piperacillin/Tazoba ctam S <8 Tetracycline S <4 Tigecycline S <2 Tobramycin R >8 Trimethoprim/Sulfam ethoxazole R >2 S = SUSCEPTIBLE I = INTERMEDIATE R = RESISTANT BLANK = DATA NOT AVAILABLE, OR DRUG NOT ADVISABLE OR TESTED R* = RESISTANCE DUE TO EXTENDED SPECTRUM BETA-LACTAMASES ESBL = EXTENDED SPECTRUM BETA-LACTAMASE TFG = THYMIDINE-DEPENDENT STRAIN RYAN = BETA-LACTAMASE POSITIVE IB = INDUCIBLE BETA-LACTAMASE. APPEARS IN PLACE OF 'S' WITH SPECIES KNOWN TO POSSESS INDUCIBLE BETA-LACTAMASES. POTENTIALLY THEY MAY BECOME RESISTANT TO ALL B-LACTAM DRUGS. PERFORMED BY: [facility] [address] [place] [address] PATHOLOGIST HOUSEHOLD PERSONAL ASSISTANT CINTIA GLASGOW M.D. Normal [facility] Comment on above: Performed By: #### C UU #### [facility] [address] No Panel Informationon 03-23 [facility] Healthcare Office Visiton 02-25-2025 Follow-up visit [id number] Garima Robine 1945 F Date Provider Department Center 02/25/2025 Yassine-STEFANO CATHERINE ANNIA Stacy Family History Family history unknown: Yes Level of Service:75927 [place] OFFICE/OUTPATIENT ESTABLISHED MOD MDM 30 MIN Normal [facility] Glucose (Bld) [Mass/Vol]on 0 02-15-2025 Glucose Blood, POC 238 mg/dL [facility] - Hematology and Cell countson 02-15-2025 HbA1c (Bld) [Mass fraction] 6.6 % [facility] No Panel Informationon 02-15 [facility] Erythrocyte distribution wid th Auto (RBC) [Ratio]on 01-05-2025 Erythrocyte distribution width (RBC) [Ratio] Erythrocyte distribution width [Ratio] by Automated count High 11.0-15.0 [facility] Estimated glomerular filtrat ion rate (GFR) non- Americanon 01-05-2025 GFR/1.73 sq M.predicted among non-blacks MDRD (S/P/Bld) [Vol rate/Area] Estimated glomerular filtration rate (GFR) non- Low >=60 mL/min/1.73m 2 [facility] Hematocrit Auto (Bld) [Volum e fraction]on 01-05-2025 Hematocrit (Bld) [Volume fraction] Hematocrit [Volume Fraction] of Blood by Automated count Low 36.0-48.0 [facility] Hemoglobin [Mass/volume] in Bloodon 01-05-2025 Hemoglobin (Bld) [Mass/Vol] Hemoglobin [Mass/volume] in Blood Low 12.0-16.0 [facility] Iron binding capacity [Mass/ volume] in Serum or Plasmaon 01-05-2025 Iron binding capacity [Mass/Vol] Iron binding capacity [Mass/volume] in Serum or Plasma Low 250.0-450.0 [facility] Iron saturation [Mass Fracti on] in Serum or Plasmaon 01-05-2025 Iron saturation [Mass fraction] Iron saturation [Mass Fraction] in Serum or Plasma [facility] Laboratory - Chemistry and C hemistry - challengeon 01-05-2025 Albumin [Mass/Vol] 3.3 g/dL Low 3.4-5.0 [facility] Calcium [Mass/Vol] 9.2 mg/dL 8.5-10.1 [facility] Chloride [Moles/Vol] 105 mmol/L 98-107 [facility] CO2 [Moles/Vol] 24.4 mmol/L 21.0-32.0 [facility] Creatinine [Mass/Vol] 1.89 mg/dL High 0.55-1.02 [facility] Ferritin [Mass/Vol] 499.0 ng/mL High 8.0-252.0 [facility] GFR/1.73 sq M.predicted MDRD (S/P/Bld) [Vol rate/Area] 31 mL/min/{1.73_m2} Low >=60 mL/min/1.73m 2 [facility] Glucose [Mass/Vol] 122 mg/dL High 74-106 [facility] Iron [Mass/Vol] 69.0 ug/dL 50.0-170.0 [facility] Magnesium [Mass/Vol] 1.9 mg/dL 1.8-2.4 [facility] Potassium [Moles/Vol] 4.7 mmol/L 3.5-5.1 [facility] Sodium [Moles/Vol] 141 mmol/L 136-145 [facility] Urate [Mass/Vol] 3.9 mg/dL 2.6-6.0 [facility] Urea nitrogen [Mass/Vol] 35.0 mg/dL High 7.0-18.0 [facility] Urea nitrogen/Creatinine [Mass ratio] 18.5 mg/mg [facility] Laboratory - Urinalysison Protein (U) [Mass/Vol] 108.9 mg/dL High <=11.[address] [facility] Leukocytes [#/volume] correc jean for nucleated erythrocytes in Blood by Automated counon 01-05-2025 WBC corrected for nucl RBC Auto (Bld) [#/Vol] Leukocytes [#/volume] corrected for nucleated erythrocytes in Blood by Automated coun 4.0-11.0 [facility] MCH Auto (RBC) [Entitic mass ]on 01-05-2025 MCH (RBC) [Entitic mass] MCH [Entitic mass] by Automated count 26.7-34.0 [facility] MCHC Auto (RBC) [Mass/Vol]on 01-05-2025 MCHC (RBC) [Mass/Vol] MCHC [Mass/volume] by Automated count 29.9-35.2 [facility] MCV Auto (RBC) [Entitic vol] on 01-05-2025 MCV (RBC) [Entitic vol] MCV [Entitic volume] by Automated count 81.0-99.0 [facility] No Panel Informationon 01-05 Urine Random Creatinine 157.18 mg/dL 20.00-300. 00 [facility] 25-Hydroxy Vitamin D Total 30.9 ng/mL [facility] Comment on above: <20 ng/mL Vit D defi cient20-<30 ng/mL Vit D xxzythghthnw44-481 ng/mL Vit D sufficient>100 ng/mL Potential Toxicity Parathyroid Hormone (Intact) 73 pg/mL Abnormal 15-65 [facility] Comment on above: Performed at: - [address] [id number] Director: Ashok Benson PhD, Phone: [phone] Phosphorus Level 3.8 mg/dL 2.6-4.7 [facility] Platelet mean volume Auto (B ld) [Entitic vol]on 01-05-2025 Platelet mean volume (Bld) [Entitic vol] Platelet mean volume [Entitic volume] in Blood by Automated count Low 9.5-13.5 [facility] Platelets Auto (Bld) [#/Vol] on 01-05-2025 Platelets (Bld) [#/Vol] Platelets [#/volume] in Blood by Automated count 150-450 [facility] RBC Auto (Bld) [#/Vol]on RBC (Bld) [#/Vol] Erythrocytes [#/volume] in Blood by Automated count Low 4.20-5.40 [facility] Serum or plasma anion gap de terminationon 01-05-2025 Anion gap [Moles/Vol] Serum or plasma anion gap determination [facility] Urine protein/creatinine rat ioon 01-05-2025 Protein/Creatinine (U) [Ratio] Urine protein/creatinine ratio [facility] Office Visiton 11-27-2024 Follow-up visit [id number] Kylah Robin 1945 F Date Provider Department Center 11/27/2024 [id number] YOON Family History Family history unknown: Yes Level of Service:09570 [place] OFFICE/OUTPATIENT ESTABLISHED MOD MDM 30 MIN Normal [facility] Glucose (Bld) [Mass/Vol]Orde red By: Maria Antonia Mo on 11-16-2024 Glucose Blood, POC 220 mg/dL [facility] - Hematology and Cell countson 11-16-2024 HbA1c (Bld) [Mass fraction] 7 % [facility] No Panel InformationOrdered By: Maria Antonia Mo on 11-16-2024 [facility] Glucose (Bld) [Mass/Vol]Orde red By: Maria Antonia Mo on 07-13-2024 Glucose Blood, POC 180 mg/dL [facility] No Panel Informationon 05-25 Type of [...] Specimen sent for: H&E Photo taken yes [facility] No Panel InformationOrdered By: Philomena Salter on 05-25-2024 [facility] Healthcare Office Visiton 05-11-2024 Follow-up visit [id number] Kylah Robin 1945 F Date Provider Department Center 05/11/2024 Yassine-STEFANO CATHERINE [facility] No family history on file Level of Service:66648 [place] OFFICE/OUTPATIENT ESTABLISHED MOD MDM 30 MIN Normal [facility] POCT [facility]-17-2024 [facility]22 Hematocrit (Bld) [Volume fraction] 28.8 % Critically low 36.0-48.0 [facility] Comment on above: Performed By: #### H H #### [facility] [address] [place] [address] Dr. Ember Teague Hemoglobin (Bld) [Mass/Vol] 9.6 g/dL Critically low 12.0-16.0 [facility] Comment on above: Performed By: #### H H #### [facility] [address] [place] [address] Dr. Ember Teague MCH (RBC) [Entitic mass] 30.7 pg Normal 26.7-34.0 [facility] Comment on above: Performed By: #### H H #### [facility] [address] [place] [address] Dr. Ember Teague MCHC (RBC) [Mass/Vol] 33.3 g/dL Normal 29.9-35.2 [facility] Comment on above: Performed By: #### H H #### [facility] [address] [place] [address] Dr. Ember Teague MCV (RBC) [Entitic vol] 92.0 fL Normal 81.0-99.0 [facility] Comment on above: Performed By: #### H H #### [facility] [address] [place] [address] Dr. Ember Teague PLT 214 103/ul Normal 150-450 [facility] Comment on above: Performed By: #### H H #### [facility] [address] [place] [address] Dr. Ember Teague RBC 3.13 106/ul Critically low 4.20-5.40 [facility] Comment on above: Performed By: #### H H #### [facility] [address] [place] [address] Dr. Ember Teague WBC 7.4 103/ul Normal 4.0-11.0 [facility] Comment on above: Performed By: #### H H #### [facility] [address] [place] [address] Dr. Ember Teague MAGNESIUMon 01-22-2023 Magnesium [Mass/Vol] 1.8 mg/dL Normal 1.8-2.4 [facility] Comment on above: Performed By: #### M G, RENAL #### [facility] [address] [place] [address] Dr. Ember Teague RENAL FUNCTION PANELon 01-22 Albumin [Mass/Vol] 3.6 g/dL Normal 3.4-5.[address] [facility] Comment on above: Performed By: #### M G, RENAL #### [facility] [address] [place] [address] Dr. Ember Teague Calcium [Mass/Vol] 9.7 mg/dL Normal 8.5-10.[address] [facility] Comment on above: Performed By: #### M G, RENAL #### [facility] [address] [place] [address] Dr. Ember Teague Chloride [Moles/Vol] 105 mmol/L Normal 98-107 [facility] Comment on above: Performed By: #### M G, RENAL #### [facility] [address] [place] [address] Dr. Ember Teague CO2 [Moles/Vol] 22.6 mmol/L Normal 21.0-32.0 [facility] Comment on above: Performed By: #### M G, RENAL #### [facility] [address] [address] [address] Ember Teague Creatinine [Mass/Vol] 2.18 mg/dL Critically high 0.55-1.02 [facility] Comment on above: Performed By: #### M G, RENAL #### [facility] [address] [address] [address] Ember Teague EGFR-AF ECUADOREAN 26 mL/min/1.73m2 Critically low >=60 [facility] Comment on above: Performed By: #### M G, RENAL #### [facility] [address] [address] [address] Ember Teague EGFR-NON AF [place]UADOREAN 22 mL/min/1.73m2 Critically low >=60 [facility] Comment on above: Performed By: #### Lico Stout, RENAL #### [facility] [address] [address] [address] Ember Teague Glucose [Mass/Vol] 134 mg/dL Critically high 74-106 [facility] Comment on above: Performed By: #### M G, RENAL #### [facility] [address] [address] [address] Ember Teague Phosphate [Mass/Vol] 4.6 mg/dL Normal 2.6-4.7 [facility] Comment on above: Performed By: #### M G, RENAL #### [facility] [address] [address] [address] Ember Teague Potassium [Moles/Vol] 5.1 mmol/L Normal 3.5-5.1 [facility] Comment on above: Performed By: #### M G, RENAL #### [facility] [address] [address] [address] Ember Teague Sodium [Moles/Vol] 138 mmol/L Normal 136-145 [facility] Comment on above: Performed By: #### M G, RENAL #### [facility] [address] [address] [address] Ember Teague Urea nitrogen [Mass/Vol] 61.0 mg/dL Critically high 7.0-18.0 [facility] Comment on above: Performed By: #### M G, RENAL #### [facility] [address] [place], [place] [address] Dr. Ember Teague MG MAMM SCREEN 3D MAY CADon 12-17-2022 MG MAMM SCREEN 3D MAY CAD Patient: KYLAH ROBIN Exam Date: 12/17/2022 : 1945 Gender:F Ordering : DR DHRUV RUBI . Admission #: [id number] Family : Order #: [id number] CLICK HERE TO VIEW EXAM RADIOLOGY REPORT [...] lung cancer at age 61. LOCATION: [facility] BREAST COMPOSITION: Scattered areas fibroglandular [...] MD on 12/17/2022 at 11:59 Normal [facility] FERRITINon 12-10-2022 Ferritin [Mass/Vol] 681.0 ng/mL Critically high 8.0-252.0 [facility] Comment on above: Performed By: #### P THINT #### [facility] [address] [address] [address] Ember Teague HEMOGRAM AND PLATELon 2022 Hematocrit (Bld) [Volume fraction] 27.1 % Critically low 36.0-48.0 [facility] Comment on above: Performed By: #### C VDTBH #### [facility] [address] [place] [address] Dr. Ember Teague Hemoglobin (Bld) [Mass/Vol] 9.7 g/dL Critically low 12.0-16.0 [facility] Comment on above: Performed By: #### C VDTBH #### [facility] [address] [place] [address] Dr. Ember Teague MCH (RBC) [Entitic mass] 31.4 pg Normal 26.7-34.0 [facility] Comment on above: Performed By: #### C VDTBH #### [facility] [address] [place] [address] Dr. Ember Teague MCHC (RBC) [Mass/Vol] 35.8 g/dL Critically high 29.9-35.2 [facility] Comment on above: Performed By: #### C VDTBH #### [facility] [address] [place] [address] Dr. Ember Teague MCV (RBC) [Entitic vol] 87.7 fL Normal 81.0-99.0 [facility] Comment on above: Performed By: #### C VDTBH #### [facility] [address] [place] [address] Dr. Ember Teague PLT 218 103/ul Normal 150-450 [facility] Comment on above: Performed By: #### C VDTBH #### [facility] [address] [place] [address] Dr. Ember Teague RBC 3.09 106/ul Critically low 4.20-5.40 [facility] Comment on above: Performed By: #### C VDTBH #### [facility] [address] [place] [address] Dr. Ember Teague WBC 6.6 103/ul Normal 4.0-11.0 [facility] Comment on above: Performed By: #### C VDTBH #### [facility] [address] [address] [address] Ember Teague IRON AND TIBCon 12-10-2022 % SATURATION 30.2 % Normal [facility] Comment on above: Performed By: #### P THINT #### [facility] [address] [address] [address] Ember Teague Iron [Mass/Vol] 84.0 ug/dL Normal 50.0-170.0 [facility] Comment on above: Performed By: #### P THINT #### [facility] [address] [address] [address] Ember Teague TIBC DIRECT 278.0 ug/dL Normal 250.0-450.0 [facility] Comment on above: Performed By: #### P THINT #### [facility] [address] [place] [address] Dr. Ember Teague XR FOOT MAY MIN [...] BENI APARICIO Date: 2022-11-20 14:03 Normal [facility] HEMOGRAM AND PLATELon 2022 Hematocrit (Bld) [Volume fraction] 27.7 % Critically low 36.0-48.0 [facility] Comment on above: Performed By: #### R ENAL #### [facility] [address] [place] [address] Dr. Ember Teague Hemoglobin (Bld) [Mass/Vol] 10.0 g/dL Critically low 12.0-16.0 [facility] Comment on above: Performed By: #### R ENAL #### [facility] [address] [place] [address] Dr. Ember Teague MCH (RBC) [Entitic mass] 31.6 pg Normal 26.7-34.0 [facility] Comment on above: Performed By: #### R ENAL #### [facility] [address] [place] [address] Dr. Ember Teague MCHC (RBC) [Mass/Vol] 36.1 g/dL Critically high 29.9-35.2 [facility] Comment on above: Performed By: #### R ENAL #### [facility] [address] [place] [address] Dr. Ember Teague MCV (RBC) [Entitic vol] 87.7 fL Normal 81.0-99.0 [facility] Comment on above: Performed By: #### R ENAL #### [facility] [address] [place] [address] Dr. Ember Teague PLT 182 103/ul Normal 150-450 [facility] Comment on above: Performed By: #### R ENAL #### [facility] [address] [place] [address] Dr. Ember Teague RBC 3.16 106/ul Critically low 4.20-5.40 [facility] Comment on above: Performed By: #### R ENAL #### [facility] [address] [place] [address] Dr. Ember Teague WBC 6.8 103/ul Normal 4.0-11.0 [facility] Comment on above: Performed By: #### R ENAL #### [facility] [address] [place] [address] Dr. Ember Teague PROF CHEM 8 (BAS METB)on Anion gap [Moles/Vol] 17.6 mmol/L Normal [facility] Comment on above: Performed By: #### C VDTBH #### [facility] [address] [place] [address] Dr. Ember Teague Calcium [Mass/Vol] 9.0 mg/dL Normal 8.5-10.1 [facility] Comment on above: Performed By: #### C VDTBH #### [facility] [address] [address] [address] Ember Teague Chloride [Moles/Vol] 104 mmol/L Normal 98-107 [facility] Comment on above: Performed By: #### C VDTBH #### [facility] [address] [address] [address] Ember Teague CO2 [Moles/Vol] 22.2 mmol/L Normal 21.0-32.0 [facility] Comment on above: Performed By: #### C VDTBH #### [facility] [address] [place] [address] Dr. Ember Teague Creatinine [Mass/Vol] 2.03 mg/dL Critically high 0.55-1.02 [facility] Comment on above: Performed By: #### C VDTBH #### [facility] [address] [place] [address] Dr. Ember Teague EGFR-AF ECUADOREAN 29 mL/min/1.73m2 Critically low >=60 [facility] Comment on above: Performed By: #### C VDTBH #### [facility] [address] [place] [address] Dr. Ember Teague EGFR-NON AF ECUADOREAN 24 mL/min/1.73m2 Critically low >=60 [facility] Comment on above: Performed By: #### C VDTBH #### [facility] [address] [place] [address] Dr. Ember Teague Glucose [Mass/Vol] 154 mg/dL Critically high 74-106 [facility] Comment on above: Performed By: #### C VDTBH #### [facility] [address] [place] [address] Dr. Ember Teague Potassium [Moles/Vol] 4.8 mmol/L Normal 3.5-5.1 [facility] Comment on above: Performed By: #### C VDTBH #### [facility] [address] [address] [address] Ember Teague Sodium [Moles/Vol] 139 mmol/L Normal 136-[address] [facility] Comment on above: Performed By: #### C VDTBH #### [facility] [address] [address] [address] Ember Teague Urea nitrogen [Mass/Vol] 43.0 mg/dL Critically high 7.0-18.0 [facility] Comment on above: Performed By: #### C VDTBH #### [facility] [address] [address] [address] Ember Teague Urea nitrogen/Creatinine [Mass ratio] 21.2 mg/mg Normal [facility] Comment on above: Performed By: #### C VDTBH #### [facility] [address] [place] [address] Dr. Ember Teague CULTURE SPUTUMon 10-24-2022 CULTURE SPUTUM Culture Observations: Beta lactamase positive Isolate 1 Haemophilus influenzae Moderate growth of Normal [facility] Comment on above: Performed By: #### R ENAL #### [facility] [address] [address] [address] Ember Teague SPUTUM GRAM STAINon 10-24-19 23 COMMENTS Normal [facility] Comment on above: Performed By: #### R ENAL #### [facility] [address] [place] [address] Dr. Ember Teague DIPHTHEROIDS Normal [facility] Comment on above: Performed By: #### R ENAL #### [facility] [address] [address] [address] Ember Teague EPITHELIALS >25 Normal [facility] Comment on above: Performed By: #### R ENAL #### [facility] [address] [address] [address] Ember Teague FUNGAL ELEMENTS Normal [facility] Comment on above: Performed By: #### R ENAL #### [facility] [address] [place] [address] Dr. Ember Teague GRAM NEG BACILLI Normal [facility] Comment on above: Performed By: #### R ENAL #### [facility] [address] [address] [address] Ember Teague GRAM NEG DIPPLOCOCCI FEW Normal [facility] Comment on above: Performed By: #### R ENAL #### [facility] [address] [address] [address] Ember Teague GRAM POS BACILLI FEW Normal [facility] Comment on above: Performed By: #### R ENAL #### [facility] [address] [address] [address] Ember Teague GRAM POSITIVE COCCI MANY Normal [facility] Comment on above: Performed By: #### R ENAL #### [facility] [address] [place] [address] Dr. Ember Teague WBC (Bld) [#/Vol] 10*3/uL Normal [facility] Comment on above: Performed By: #### R ENAL #### [facility] [address] [place] [address] Dr. Ember Teague XR CHEST 2 Von [...] ANGELINA BRISENO Date: 2022-10-24 16:22 Normal [facility] FERRITINon 09-18-2022 Ferritin [Mass/Vol] 612.0 ng/mL Critically high 8.0-252.0 [facility] Comment on above: Performed By: #### F ERR, FETIBC #### [facility] [address] [place] [address] Dr. Ember Teague HEMOGRAM AND PLATELon 2021 Hematocrit (Bld) [Volume fraction] 28.1 % Critically low 36.0-48.0 [facility] Comment on above: Performed By: #### C BC #### [facility] [address] [place] [address] Dr. Ember Teague Hemoglobin (Bld) [Mass/Vol] 9.7 g/dL Critically low 12.0-16.0 [facility] Comment on above: Performed By: #### C BC #### [facility] [address] [place] [address] Dr. Ember Teague MCH (RBC) [Entitic mass] 31.3 pg Normal 26.7-34.0 [facility] Comment on above: Performed By: #### C BC #### [facility] [address] [place] [address] Dr. Ember Teague MCHC (RBC) [Mass/Vol] 34.5 g/dL Normal 29.9-35.2 [facility] Comment on above: Performed By: #### C BC #### [facility] [address] [place] [address] Dr. Ember Teague MCV (RBC) [Entitic vol] 90.6 fL Normal 81.0-99.0 [facility] Comment on above: Performed By: #### C BC #### [facility] [address] [place] [address] Dr. Ember Teague PLT 183 103/ul Normal 150-450 [facility] Comment on above: Performed By: #### C BC #### [facility] [address] [place] [address] Dr. Ember Teague RBC 3.10 106/ul Critically low 4.20-5.40 [facility] Comment on above: Performed By: #### C BC #### [facility] [address] [place] [address] Dr. Ember Teague WBC 7.2 103/ul Normal 4.0-11.0 [facility] Comment on above: Performed By: #### C BC #### [facility] [address] [place] [address] Dr. Ember Teague IRON AND TIBCon 09-18-2022 % SATURATION 36.0 % Normal [facility] Comment on above: Performed By: #### F ERR, FETIBC #### [facility] [address] [address] [address] Ember Teague Iron [Mass/Vol] 77.0 ug/dL Normal 50.0-170.0 [facility] Comment on above: Performed By: #### F ERR, FETIBC #### [facility] [address] [address] [address] Ember Teague TIBC DIRECT 214.0 ug/dL Critically low 250.0-450.0 [facility] Comment on above: Performed By: #### F ERR, FETIBC #### [facility] [address] [address] [address] Ember Teague RENAL FUNCTION PANELon 09-18 Albumin [Mass/Vol] 3.7 g/dL Normal 3.4-5.0 [facility] Comment on above: Performed By: #### R ENAL #### [facility] [address] [address] [address] Ember Teague Calcium [Mass/Vol] 9.5 mg/dL Normal 8.5-10.[address] [facility] Comment on above: Performed By: #### R ENAL #### [facility] [address] [address] [address] Ember Teague Chloride [Moles/Vol] 103 mmol/L Normal 98-107 [facility] Comment on above: Performed By: #### R ENAL #### [facility] [address] [address] [address] Ember Teague CO2 [Moles/Vol] 21.1 mmol/L Normal 21.0-32.0 [facility] Comment on above: Performed By: #### R ENAL #### [facility] [address] [address] [address] Ember Teague Creatinine [Mass/Vol] 1.85 mg/dL Critically high 0.55-1.02 [facility] Comment on above: Performed By: #### R ENAL #### [facility] [address] [address] [address] Ember Teague EGFR-AF ECUADOREAN 32 mL/min/1.73m2 Critically low >=60 [facility] Comment on above: Performed By: #### R ENAL #### [facility] [address] [address] [address] Ember Teague EGFR-NON AF ECUADOREAN 26 mL/min/1.73m2 Critically low >=60 [facility] Comment on above: Performed By: #### R ENAL #### [facility] [address] [address] [address] Ember Teague Glucose [Mass/Vol] 183 mg/dL Critically high 74-106 [facility] Comment on above: Performed By: #### R ENAL #### [facility] [address] [address] [address] Ember Teague Phosphate [Mass/Vol] 3.7 mg/dL Normal 2.6-4.7 [facility] Comment on above: Performed By: #### R ENAL #### [facility] [address] [address] [address] Ember Teague Potassium [Moles/Vol] 4.9 mmol/L Normal 3.5-5.1 [facility] Comment on above: Performed By: #### R ENAL #### [facility] [address] [address] [address] Ember Teague Sodium [Moles/Vol] 138 mmol/L Normal 136-145 [facility] Comment on above: Performed By: #### R ENAL #### [facility] [address] [address] [address] Ember Teague Urea nitrogen [Mass/Vol] 40.0 mg/dL Critically high 7.0-18.0 [facility] Comment on above: Performed By: #### R ENAL #### [facility] [address] [address] [address] Ember Teauge CULTURE URINEon 09-15-2022 CULTURE URINE Isolate 1 [...] F Trimethoprim/Sulfam ethoxazole <=20 S F Normal [facility] Comment on above: Performed By: #### R ENAL #### [facility] [address] [place] [address] Dr. Ember Teague BNPon 09-11-2022 Natriuretic peptide B (Bld) [Mass/Vol] 408.0 pg/mL Normal <=1,800.0 [facility] Comment on above: Performed By: #### P THINT #### [facility] [address] [place] [address] Dr. Ember Teague CBC AUTO DIFFon 09-11-2022 BASO # 0.0 103/ul Normal 0.0-0.1 [facility] Comment on above: Performed By: #### C BC #### [facility] [address] [place] [address] Dr. Ember Teague Basophils/100 WBC (Bld) 0.3 % Normal 0.2-2.0 [facility] Comment on above: Performed By: #### C BC #### [facility] [address] [place] [address] Dr. Ember Teague EO # 0.1 103/ul Normal 0.0-0.7 [facility] Comment on above: Performed By: #### C BC #### [facility] [address] [place] [address] Dr. Ember Teague Eosinophils/100 WBC (Bld) 1.9 % Normal 0.9-7.0 [facility] Comment on above: Performed By: #### C BC #### [facility] [address] [place] [address] Dr. Ember Teague Erythrocyte distribution width (RBC) [Ratio] 15.2 % Critically high 11.0-15.0 [facility] Comment on above: Performed By: #### C BC #### [facility] [address] [place] [address] Dr. Ember Teague Hematocrit (Bld) [Volume fraction] 26.6 % Critically low 36.0-48.0 [facility] Comment on above: Performed By: #### C BC #### [facility] [address] [place] [address] Dr. Ember Teague Hemoglobin (Bld) [Mass/Vol] 9.0 g/dL Critically low 12.0-16.0 [facility] Comment on above: Performed By: #### C BC #### [facility] [address] [place] [address] Dr. Ember Teague IG # 0.02 10e3/ul Normal 0.00-0.03 [facility] Comment on above: Performed By: #### C BC #### [facility] [address] [place] [address] Dr. Ember Teague IG % 0.3 % Normal 0.0-0.5 [facility] Comment on above: Performed By: #### C BC #### [facility] [address] [place] [address] Dr. Ember Teague LYMPH # 1.9 103/ul Normal 1.2-3.8 [facility] Comment on above: Performed By: #### C BC #### [facility] [address] [place] [address] Dr. Ember Teague Lymphocytes/100 WBC (Bld) 32.4 % Normal 20.5-60.0 [facility] Comment on above: Performed By: #### C BC #### [facility] [address] [place] [address] Dr. Ember Teague MANUAL DIFF REQ NO Normal [facility] Comment on above: Performed By: #### C BC #### [facility] [address] [place] [address] Dr. Ember Teague MCH (RBC) [Entitic mass] 31.1 pg Normal 26.7-34.0 [facility] Comment on above: Performed By: #### C BC #### [facility] [address] [place] [address] Dr. Ember Teague MCHC (RBC) [Mass/Vol] 33.8 g/dL Normal 29.9-35.2 [facility] Comment on above: Performed By: #### C BC #### [facility] [address] [place] [address] Dr. Ember Teague MCV (RBC) [Entitic vol] 92.0 fL Normal 81.0-99.0 [facility] Comment on above: Performed By: #### C BC #### [facility] [address] [place] [address] Dr. Ember Teague MONO # 0.6 103/ul Normal 0.3-0.8 [facility] Comment on above: Performed By: #### C BC #### [facility] [address] [place] [address] Dr. Ember Teague Monocytes/100 WBC (Bld) 10.0 % Normal 1.7-12.0 [facility] Comment on above: Performed By: #### C BC #### [facility] [address] [place] [address] Dr. Ember Teague NEUT # 3.2 103/ul Normal 1.4-6.5 [facility] Comment on above: Performed By: #### C BC #### [facility] [address] [place] [address] Dr. Ember Teague Neutrophils/100 WBC (Bld) 55.1 % Normal 43.0-75.0 [facility] Comment on above: Performed By: #### C BC #### [facility] [address] [place] [address] Dr. Ember Teague Platelet mean volume (Bld) [Entitic vol] 9.4 fL Critically low 9.5-13.5 [facility] Comment on above: Performed By: #### C BC #### [facility] [address] [place] [address] Dr. Ember Teague PLT 196 103/ul Normal 150-450 [facility] Comment on above: Performed By: #### C BC #### [facility] [address] [place] [address] Dr. Ember Teague RBC 2.89 106/ul Critically low 4.20-5.40 [facility] Comment on above: Performed By: #### C BC #### [facility] [address] [place] [address] Dr. Ember Teague WBC 5.8 103/ul Normal 4.0-11.0 [facility] Comment on above: Performed By: #### C BC #### [facility] [address] [place] [address] Dr. Ember Teague PROF 14(COMP METB)on 022 Albumin [Mass/Vol] 3.7 g/dL Normal 3.4-5.0 [facility] Comment on above: Performed By: #### P THINT #### [facility] [address] [place] [address] Dr. Ember Teague Albumin/Globulin [Mass ratio] 1.0 {ratio} Normal [facility] Comment on above: Performed By: #### P THINT #### [facility] [address] [place] [address] Dr. Ember Teague ALP [Catalytic activity/Vol] 79 U/L Normal 46-116 [facility] Comment on above: Performed By: #### P THINT #### [facility] [address] [place] [address] Dr. Ember Teague ALT [Catalytic activity/Vol] 24 U/L Normal 14-59 [facility] Comment on above: Performed By: #### P THINT #### [facility] [address] [place] [address] Dr. Ember Teague Anion gap [Moles/Vol] 12.8 mmol/L Normal [facility] Comment on above: Performed By: #### P THINT #### [facility] [address] [place] [address] Dr. Ember Teague AST [Catalytic activity/Vol] 17 U/L Normal 15-37 [facility] Comment on above: Performed By: #### P THINT #### [facility] [address] [place] [address] Dr. Ember Teague Bilirubin [Mass/Vol] 0.5 mg/dL Normal 0.2-1.0 [facility] Comment on above: Performed By: #### P THINT #### [facility] [address] [place] [address] Dr. Ember Teague Calcium [Mass/Vol] 9.4 mg/dL Normal 8.5-10.1 [facility] Comment on above: Performed By: #### P THINT #### [facility] [address] [address] [address] Ember Teague Chloride [Moles/Vol] 101 mmol/L Normal 98-107 [facility] Comment on above: Performed By: #### P THINT #### [facility] [address] [place] [address] Dr. Ember Teague CO2 [Moles/Vol] 24.3 mmol/L Normal 21.0-32.0 [facility] Comment on above: Performed By: #### P THINT #### [facility] [address] [place] [address] Dr. Ember Teague Creatinine [Mass/Vol] 2.84 mg/dL Critically high 0.55-1.02 [facility] Comment on above: Performed By: #### P THINT #### [facility] [address] [place] [address] Dr. Ember Teague EGFR-AF ECUADOREAN 20 mL/min/1.73m2 Critically low >=60 [facility] Comment on above: Performed By: #### P THINT #### [facility] [address] [place] [address] Dr. Ember Teague EGFR-NON AF ECUADOREAN 16 mL/min/1.73m2 Critically low >=60 [facility] Comment on above: Performed By: #### P THINT #### [facility] [address] [place] [address] Dr. Ember Teague Globulin (S) [Mass/Vol] 3.7 g/dL Normal [facility] Comment on above: Performed By: #### P THINT #### [facility] [address] [place] [address] Dr. Ember Teague Glucose [Mass/Vol] 174 mg/dL Critically high 74-106 [facility] Comment on above: Performed By: #### P THINT #### [facility] [address] [place] [address] Dr. Ember Teague Potassium [Moles/Vol] 5.1 mmol/L Normal 3.5-5.1 [facility] Comment on above: Performed By: #### P THINT #### [facility] [address] [place] [address] Dr. Ember Teague Protein [Mass/Vol] 7.4 g/dL Normal 6.4-8.2 [facility] Comment on above: Performed By: #### P THINT #### [facility] [address] [place] [address] Dr. Ember Teague Sodium [Moles/Vol] 133 mmol/L Critically low 136-145 Th [facility] Comment on above: Performed By: #### P THINT #### [facility] [address] [place] [address] Dr. Ember Teague Urea nitrogen [Mass/Vol] 68.0 mg/dL Critically high 7.0-18.0 [facility] Comment on above: Performed By: #### P THINT #### [facility] [address] [place] [address] Dr. Ember Teague Urea nitrogen/Creatinine [Mass ratio] 23.9 mg/mg Normal [facility] Comment on above: Performed By: #### P THINT #### [facility] [address] [place] [address] Dr. Ember Teague TROPONIN, HIGH SENSITIVITYon 09-11-2022 [...] DIAGNOSIS. Performed By: #### P THINT #### [facility] [address] [place] [address] Dr. Ember Teague UA RANDOM W/MICROSCOPICon BACTERIA NONE SEEN Normal NONE SEEN [facility] Comment on above: Performed By: #### C VDTBH #### [facility] [address] [place] [address] Dr. Ember Teague Bilirubin Ql (U) Negative Normal NEGATIVE [facility] Comment on above: Performed By: #### C VDTBH #### [facility] [address] [place] [address] Dr. Ember Teague CAST NONE SEEN Normal NONE SEEN [facility] Comment on above: Performed By: #### C VDTBH #### [facility] [address] [place] [address] Dr. Ember Teague Clarity (U) CLEAR Normal CLEAR [facility] Comment on above: Performed By: #### C VDTBH #### [facility] [address] [place] [address] Dr. Ember Teague Color (U) LT. YELLOW Normal YELLOW [facility] Comment on above: Performed By: #### C VDTBH #### [facility] [address] [place] [address] Dr. Ember Teague Crystals LM Nom (Urine sed) NONE SEEN Normal NONE SEEN [facility] Comment on above: Performed By: #### C VDTBH #### [facility] [address] [place] [address] Dr. Ember Teague Epithelial cells LM Ql (Urine sed) FEW Abnormal NONE SEEN /RARE [facility] Comment on above: Performed By: #### C VDTBH #### [facility] [address] [place] [address] Dr. Ember Teague Glucose Ql (U) Negative Normal NEGATIVE [facility] Comment on above: Performed By: #### C VDTBH #### [facility] [address] [place] [address] Dr. Ember Teague Hemoglobin Ql (U) Negative Normal NEGATIVE [facility] Comment on above: Performed By: #### C VDTBH #### [facility] [address] [place] [address] Dr. Ember Teague Ketones Ql (U) Negative Normal NEGATIVE [facility] Comment on above: Performed By: #### C VDTBH #### [facility] [address] [place] [address] Dr. Ember Teague LEUKOCYTES Negative Normal NEGATIVE [facility] Comment on above: Performed By: #### C VDTBH #### [facility] [address] [place] [address] Dr. Ember Teague MUCOUS NONE SEEN Normal NONE SEEN [facility] Comment on above: Performed By: #### C VDTBH #### [facility] [address] [place] [address] Dr. Ember Teague Nitrite Ql (U) Negative Normal NEGATIVE [facility] Comment on above: Performed By: #### C VDTBH #### [facility] [address] [place] [address] Dr. Ember Teague pH (U) 5.5 [pH] Normal 5-9 [facility] Comment on above: Performed By: #### C VDTBH #### [facility] [address] [place] [address] Dr. Ember Teague RBC NONE SEEN Abnormal 0-2 [facility] Comment on above: Performed By: #### C VDTBH #### [facility] [address] [place] [address] Dr. Ember Teague SPEC GRAVITY 1.010 Normal 1.005-<=1.025 [facility] Comment on above: Performed By: #### C VDTBH #### [facility] [address] [place] [address] Dr. Ember Teague UA PROTEIN Negative Normal NEGATIVE/ TRACE [facility] Comment on above: Performed By: #### C VDTBH #### [facility] [address] [place] [address] Dr. Ember Teague Urobilinogen Qn (U) 0.2 {Esau'U}/dL Normal 0.2 - 1. 0 [facility] Comment on above: Performed By: #### C VDTBH #### [facility] [address] [place] [address] Dr. Ember Teague WBC NONE SEEN Normal NONE SEEN [facility] Comment on above: Performed By: #### C VDTBH #### [facility] [address] [place] [address] Dr. Ember Teague CBC AUTO DIFFon 08-13-2022 BASO # 0.0 103/ul Normal 0.0-0.1 [facility] Comment on above: Performed By: #### C BC #### [facility] [address] [place] [address] Dr. Ember Teague Basophils/100 WBC (Bld) 0.3 % Normal 0.2-2.0 [facility] Comment on above: Performed By: #### C BC #### [facility] [address] [place] [address] Dr. Ember Teague EO # 0.2 103/ul Normal 0.0-0.7 [facility] Comment on above: Performed By: #### C BC #### [facility] [address] [place] [address] Dr. Ember Teague Eosinophils/100 WBC (Bld) 3.7 % Normal 0.9-7.0 [facility] Comment on above: Performed By: #### C BC #### [facility] [address] [place] [address] Dr. Ember Teague Erythrocyte distribution width (RBC) [Ratio] 15.0 % Normal 11.0-15.0 [facility] Comment on above: Performed By: #### C BC #### [facility] [address] [place] [address] Dr. Ember Teague Hematocrit (Bld) [Volume fraction] 27.9 % Critically low 36.0-48.0 [facility] Comment on above: Performed By: #### C BC #### [facility] [address] [place] [address] Dr. Ember Teague Hemoglobin (Bld) [Mass/Vol] 9.7 g/dL Critically low 12.0-16.0 [facility] Comment on above: Performed By: #### C BC #### [facility] [address] [place] [address] Dr. Ember Teague IG # 0.01 10e3/ul Normal 0.00-0.03 [facility] Comment on above: Performed By: #### C BC #### [facility] [address] [place] [address] Dr. Ember Teague IG % 0.2 % Normal 0.0-0.5 [facility] Comment on above: Performed By: #### C BC #### [facility] [address] [place] [address] Dr. Ember Teague LYMPH # 1.9 103/ul Normal 1.2-3.8 [facility] Comment on above: Performed By: #### C BC #### [facility] [address] [place] [address] Dr. Ember Teague Lymphocytes/100 WBC (Bld) 32.2 % Normal 20.5-60.0 [facility] Comment on above: Performed By: #### C BC #### [facility] [address] [place] [address] Dr. Ember Teague MANUAL DIFF REQ NO Normal [facility] Comment on above: Performed By: #### C BC #### [facility] [address] [place] [address] Dr. Ember Teague MCH (RBC) [Entitic mass] 31.4 pg Normal 26.7-34.0 [facility] Comment on above: Performed By: #### C BC #### [facility] [address] [place] [address] Dr. Ember Teague MCHC (RBC) [Mass/Vol] 34.8 g/dL Normal 29.9-35.2 [facility] Comment on above: Performed By: #### C BC #### [facility] [address] [place] [address] Dr. Ember Teague MCV (RBC) [Entitic vol] 90.3 fL Normal 81.0-99.0 [facility] Comment on above: Performed By: #### C BC #### [facility] [address] [place] [address] Dr. Ember Teague MONO # 0.6 103/ul Normal 0.3-0.8 [facility] Comment on above: Performed By: #### C BC #### [facility] [address] [place] [address] Dr. Ember Teague Monocytes/100 WBC (Bld) 9.8 % Normal 1.7-12.0 [facility] Comment on above: Performed By: #### C BC #### [facility] [address] [address] [address] Ember Teague NEUT # 3.2 103/ul Normal 1.4-6.5 [facility] Comment on above: Performed By: #### C BC #### [facility] [address] [place] [address] Dr. Ember Teague Neutrophils/100 WBC (Bld) 53.8 % Normal 43.0-75.0 [facility] Comment on above: Performed By: #### C BC #### [facility] [address] [place] [address] Dr. Ember Teague Platelet mean volume (Bld) [Entitic vol] 10.0 fL Normal 9.5-13.5 [facility] Comment on above: Performed By: #### C BC #### [facility] [address] [place] [address] Dr. Ember Teague PLT 194 103/ul Normal 150-450 [facility] Comment on above: Performed By: #### C BC #### [facility] [address] [place] [address] Dr. Ember Teague RBC 3.09 106/ul Critically low 4.20-5.40 [facility] Comment on above: Performed By: #### C BC #### [facility] [address] [place] [address] Dr. Ember Teague WBC 6.0 103/ul Normal 4.0-11.0 [facility] Comment on above: Performed By: #### C BC #### [facility] [address] [place] [address] Dr. Ember Teague PTH INTACTon 06-26-2022 PTH, Intact 39 pg/mL Normal 15-65 [facility] Comment on above: Performed By: #### P THINT #### [facility] [address] [place] [address] Dr. Ember Teague CBC AUTO DIFFon 06-25-2022 BASO # 0.1 103/ul Normal 0.0-0.1 [facility] Comment on above: Performed By: #### C VDTBH #### [facility] [address] [place] [address] Dr. Ember Teague Basophils/100 WBC (Bld) 0.6 % Normal 0.2-2.0 [facility] Comment on above: Performed By: #### C VDTBH #### [facility] [address] [place] [address] Dr. Ember Teague EO # 0.2 103/ul Normal 0.0-0.7 [facility] Comment on above: Performed By: #### C VDTBH #### [facility] [address] [place] [address] Dr. Ember Teague Eosinophils/100 WBC (Bld) 3.0 % Normal 0.9-7.0 [facility] Comment on above: Performed By: #### C VDTBH #### [facility] [address] [place] [address] Dr. Ember Teague Erythrocyte distribution width (RBC) [Ratio] 14.2 % Normal 11.0-15.0 [facility] Comment on above: Performed By: #### C VDTBH #### [facility] [address] [place] [address] Dr. Ember Teague Hematocrit (Bld) [Volume fraction] 30.9 % Critically low 36.0-48.0 [facility] Comment on above: Performed By: #### C VDTBH #### [facility] [address] [place] [address] Dr. Ember Teague Hemoglobin (Bld) [Mass/Vol] 10.6 g/dL Critically low 12.0-16.0 [facility] Comment on above: Performed By: #### C VDTBH #### [facility] [address] [place] [address] Dr. Ember Teague IG # 0.04 10e3/ul Critically high 0.00-0.03 [facility] Comment on above: Performed By: #### C VDTBH #### [facility] [address] [place] [address] Dr. Ember Teague IG % 0.5 % Normal 0.0-0.5 [facility] Comment on above: Performed By: #### C VDTBH #### [facility] [address] [place] [address] Dr. Ember Teague LYMPH # 2.2 103/ul Normal 1.2-3.8 [facility] Comment on above: Performed By: #### C VDTBH #### [facility] [address] [place] [address] Dr. Ember Teague Lymphocytes/100 WBC (Bld) 27.0 % Normal 20.5-60.0 [facility] Comment on above: Performed By: #### C VDTBH #### [facility] [address] [place] [address] Dr. Ember Teague MANUAL DIFF REQ NO Normal [facility] Comment on above: Performed By: #### C VDTBH #### [facility] [address] [place] [address] Dr. Ember Teague MCH (RBC) [Entitic mass] 31.2 pg Normal 26.7-34.0 [facility] Comment on above: Performed By: #### C VDTBH #### [facility] [address] [place] [address] Dr. Ember Teague MCHC (RBC) [Mass/Vol] 34.3 g/dL Normal 29.9-35.2 [facility] Comment on above: Performed By: #### C VDTBH #### [facility] [address] [place] [address] Dr. Ember Teague MCV (RBC) [Entitic vol] 90.9 fL Normal 81.0-99.0 [facility] Comment on above: Performed By: #### C VDTBH #### [facility] [address] [place] [address] Dr. Ember Teague MONO # 0.7 103/ul Normal 0.3-0.8 [facility] Comment on above: Performed By: #### C VDTBH #### [facility] [address] [place] [address] Dr. Ember Teague Monocytes/100 WBC (Bld) 9.2 % Normal 1.7-12.0 [facility] Comment on above: Performed By: #### C VDTBH #### [facility] [address] [place] [address] Dr. Ember Teague NEUT # 4.8 103/ul Normal 1.4-6.5 [facility] Comment on above: Performed By: #### C VDTBH #### [facility] [address] [place] [address] Dr. Ember Teague Neutrophils/100 WBC (Bld) 59.7 % Normal 43.0-75.0 [facility] Comment on above: Performed By: #### C VDTBH #### [facility] [address] [place] [address] Dr. Ember Teague Platelet mean volume (Bld) [Entitic vol] 9.3 fL Critically low 9.5-13.5 [facility] Comment on above: Performed By: #### C VDTBH #### [facility] [address] [place] [address] Dr. Ember Teague PLT 227 103/ul Normal 150-450 [facility] Comment on above: Performed By: #### C VDTBH #### [facility] [address] [place] [address] Dr. Ember Teague RBC 3.40 106/ul Critically low 4.20-5.40 [facility] Comment on above: Performed By: #### C VDTBH #### [facility] [address] [place] [address] Dr. Ember Teague WBC 8.0 103/ul Normal 4.0-11.0 [facility] Comment on above: Performed By: #### C VDTBH #### [facility] [address] [place] [address] Dr. Ember Teague MRI LSPINE WO CONon 06-25-20 22 MRI LSPINE WO CON EXAMINATION: MRI LSPINE [...] YANET HUERTA Date: 2022-06-25 08:45 Normal [facility] RENAL FUNCTION PANELon 06-25 Albumin [Mass/Vol] 3.9 g/dL Normal 3.4-5.[address] [facility] Comment on above: Performed By: #### P THINT #### [facility] [address] [address] [address] Ember Teague Calcium [Mass/Vol] 9.5 mg/dL Normal 8.5-10.[address] [facility] Comment on above: Performed By: #### P THINT #### [facility] [address] [address] [address] Ember Teague Chloride [Moles/Vol] 102 mmol/L Normal 98-107 [facility] Comment on above: Performed By: #### P THINT #### [facility] [address] [address] [address] Ember Teague CO2 [Moles/Vol] 23.8 mmol/L Normal 21.0-32.0 [facility] Comment on above: Performed By: #### P THINT #### [facility] [address] [address] [address] Ember Teague Creatinine [Mass/Vol] 1.75 mg/dL Critically high 0.55-1.02 [facility] Comment on above: Performed By: #### P THINT #### [facility] [address] [place] [address] Dr. Ember Teague EGFR-AF ECUADOREAN 34 mL/min/1.73m2 Critically low >=60 [facility] Comment on above: Performed By: #### P THINT #### [facility] [address] [place] [address] Dr. Ember Teague EGFR-NON AF ECUADOREAN 28 mL/min/1.73m2 Critically low >=60 [facility] Comment on above: Performed By: #### P THINT #### [facility] [address] [place] [address] Dr. Ember Teague Glucose [Mass/Vol] 199 mg/dL Critically high 74-106 [facility] Comment on above: Performed By: #### P THINT #### [facility] [address] [address] [address] Ember Teague Phosphate [Mass/Vol] 4.3 mg/dL Normal 2.6-4.7 [facility] Comment on above: Performed By: #### P THINT #### [facility] [address] [place] [address] Dr. Ember Teague Potassium [Moles/Vol] 4.9 mmol/L Normal 3.5-5.1 [facility] Comment on above: Performed By: #### P THINT #### [facility] [address] [address] [address] Ember Teague Sodium [Moles/Vol] 135 mmol/L Critically low 136-145 [facility] Comment on above: Performed By: #### P THINT #### [facility] [address] [place] [address] Dr. Ember Teague Urea nitrogen [Mass/Vol] 34.0 mg/dL Critically high 7.0-18.0 [facility] Comment on above: Performed By: #### P THINT #### [facility] [address] [place] [address] Dr. Ember Teague VITAMIN D 25 OHon 06-25-2022 VIT D 25-OH 40.6 ng/mL Normal [facility] Comment on above: Performed By: #### P THINT #### [facility] [address] [place] [address] Dr. Ember Teague VIT D RANGES SEE BELOW Normal [facility] Comment on above: Result Comment: <20 ng/mL Vit D deficient 20 - <30 ng/mL Vit D insufficient 30 - 100 ng/mL Vit D sufficient >100 ng/mL Potential Toxicity Performed By: #### P THINT #### [facility] [address] [place] [address] Dr. Ember Teague Covid-19 PCR (CVDTB)on 06-07 [...] for this test is supported by the Field Aide of Health and Human Service's (HHS's) declaration [...] consistent with SARS-CoV-2. Performed By: #### C [facility] #### [facility] [address] [address] [address] LSPINE WO CONon [...] YANET HUERTA Date: 2022-06-01 18:02 Normal [facility] XR LSPINE MIN 4 VIEWSon [...] by: YANET HUERTA Date: 2022-05-21 15:25 Normal [facility] PTH INTACTon 05-03-2022 PTH, Intact 60 pg/mL Normal 15-65 [facility] Comment on above: Performed By: #### C VDTBH #### [facility] [address] [address] [address] Ember Teague VIT D 25-OH LABCORPon 2021 Vitamin D, 25-Hydroxy 26.1 ng/mL Critically low 30.0-100.0 [facility] Comment on above: Result Comment: Sara min D deficiency has been defined by the Trail of Medicine and an Endocrine Society practice guideline as a level of serum 25-OH vitamin D less than 20 ng/mL (1,2). The Endocrine Society went on to further define vitamin D insufficiency as a level between 21 and 29 ng/mL (2). 1. IOM (Trail of Medicine). 2010. Dietary reference intakes for calcium and D. [place]: The National Academies Press. 2. Sherice MF, Wendy NC, Huan ZHONG, et al. Evaluation, treatment, and prevention of vitamin D deficiency: an Endocrine Society clinical practice guideline. JCEM. 2010; 96(7):1911-30. Performed By: #### R ENAL #### [facility] [address] [address] [address] Ember Teague FERRITINon 05-02-2022 Ferritin [Mass/Vol] 590.0 ng/mL Critically high 8.0-252.0 [facility] Comment on above: Performed By: #### R ENAL #### [facility] [address] [address] [address] Ember Teague HEMOGRAM AND PLATELon 2021 Hematocrit (Bld) [Volume fraction] 28.4 % Critically low 36.0-48.0 [facility] Comment on above: Performed By: #### C VDTBH #### [facility] [address] [address] [address] Ember Teague Hemoglobin (Bld) [Mass/Vol] 9.6 g/dL Critically low 12.0-16.0 [facility] Comment on above: Performed By: #### C VDTBH #### [facility] [address] [address] [address] Ember Teague MCH (RBC) [Entitic mass] 31.0 pg Normal 26.7-34.0 [facility] Comment on above: Performed By: #### C VDTBH #### [facility] [address] [place] [address] Dr. Ember Teague MCHC (RBC) [Mass/Vol] 33.8 g/dL Normal 29.9-35.2 [facility] Comment on above: Performed By: #### C VDTBH #### [facility] [address] [address] [address] Ember Teague MCV (RBC) [Entitic vol] 91.6 fL Normal 81.0-99.0 [facility] Comment on above: Performed By: #### C VDTBH #### [facility] [address] [place] [address] Dr. Ember Teague PLT 189 103/ul Normal 150-450 [facility] Comment on above: Performed By: #### C VDTBH #### [facility] [address] [address] [address] Ember Teague RBC 3.10 106/ul Critically low 4.20-5.40 [facility] Comment on above: Performed By: #### C VDTBH #### [facility] [address] [place] [address] Dr. Ember Teague WBC 6.2 103/ul Normal 4.0-11.0 [facility] Comment on above: Performed By: #### C VDTBH #### [facility] [address] [address] [address] Ember Teague IRON AND TIBCon 05-02-2022 % SATURATION 34.3 % Normal [facility] Comment on above: Performed By: #### R ENAL #### [facility] [address] [place] [address] Dr. Ember Teague Iron [Mass/Vol] 69.0 ug/dL Normal 50.0-170.0 [facility] Comment on above: Performed By: #### R ENAL #### [facility] [address] [place] [address] Dr. Ember Teague TIBC DIRECT 201.0 ug/dL Critically low 250.0-450.0 [facility] Comment on above: Performed By: #### R ENAL #### [facility] [address] [place] [address] Dr. Ember Teague MAGNESIUMon 05-02-2022 Magnesium [Mass/Vol] 1.7 mg/dL Critically low 1.8-2.4 [facility] Comment on above: Performed By: #### C VDTBH #### [facility] [address] [place] [address] Dr. Ember Teague RENAL FUNCTION PANELon 05-02 Albumin [Mass/Vol] 3.6 g/dL Normal 3.4-5.0 [facility] Comment on above: Performed By: #### C VDTBH #### [facility] [address] [place] [address] Dr. Ember Teague Calcium [Mass/Vol] 9.2 mg/dL Normal 8.5-10.[address] [facility] Comment on above: Performed By: #### C VDTBH #### [facility] [address] [place] [address] Dr. Ember Teague Chloride [Moles/Vol] 107 mmol/L Normal 98-107 [facility] Comment on above: Performed By: #### C VDTBH #### [facility] [address] [place] [address] Dr. Ember Teague CO2 [Moles/Vol] 21.2 mmol/L Normal 21.0-32.0 [facility] Comment on above: Performed By: #### C VDTBH #### [facility] [address] [address] [address] Ember Teague Creatinine [Mass/Vol] 1.75 mg/dL Critically high 0.55-1.02 [facility] System Comment on above: Performed By: #### C VDTBH #### [facility] [address] [address] [address] Ember Teague EGFR-AF ECUADOREAN 34 mL/min/1.73m2 Critically low >=60 [facility] Comment on above: Performed By: #### C VDTBH #### [facility] [address] [place] [address] Dr. Ember Teague EGFR-NON AF ECUADOREAN 28 mL/min/1.73m2 Critically low >=60 [facility] Comment on above: Performed By: #### C VDTBH #### [facility] [address] [place] [address] Dr. Ember Teague Glucose [Mass/Vol] 193 mg/dL Critically high 74-106 [facility] Comment on above: Performed By: #### C VDTBH #### [facility] [address] [place] [address] Dr. Ember Teague Phosphate [Mass/Vol] 4.2 mg/dL Normal 2.6-4.7 [facility] Comment on above: Performed By: #### C VDTBH #### [facility] [address] [place] [address] Dr. Ember Teague Potassium [Moles/Vol] 5.1 mmol/L Normal 3.5-5.1 [facility] Comment on above: Performed By: #### C VDTBH #### [facility] [address] [place] [address] Dr. Ember Teague Sodium [Moles/Vol] 139 mmol/L Normal 136-145 [facility] Comment on above: Performed By: #### C VDTBH #### [facility] [address] [place] [address] Dr. Ember Teague Urea nitrogen [Mass/Vol] 34.0 mg/dL Critically high 7.0-18.0 [facility] Comment on above: Performed By: #### C VDTBH #### [facility] [address] [place] [address] Dr. Ember Teague UA RANDOM W/MICROSCOPICon BACTERIA SMALL Abnormal NONE SEEN [facility] Comment on above: Performed By: #### C VDTBH #### [facility] [address] [place] [address] Dr. Ember Teague Bilirubin Ql (U) Negative Normal NEGATIVE [facility] Comment on above: Performed By: #### C VDTBH #### [facility] [address] [place] [address] Dr. Ember Teague CAST NONE SEEN Normal NONE SEEN [facility] Comment on above: Performed By: #### C VDTBH #### [facility] [address] [place] [address] Dr. Ember Teague Clarity (U) CLEAR Normal CLEAR [facility] Comment on above: Performed By: #### C VDTBH #### [facility] [address] [place] [address] Dr. Ember Teague Color (U) LT. YELLOW Normal YELLOW [facility] Comment on above: Performed By: #### C VDTBH #### [facility] [address] [place] [address] Dr. Ember Teague Crystals LM Nom (Urine sed) NONE SEEN Normal NONE SEEN [facility] Comment on above: Performed By: #### C VDTBH #### [facility] [address] [place] [address] Dr. Ember Teague Epithelial cells LM Ql (Urine sed) MODERATE Abnormal NONE SEEN /RARE [facility] Comment on above: Performed By: #### C VDTBH #### [facility] [address] [place] [address] Dr. Ebmer Teague Glucose Ql (U) Negative Normal NEGATIVE [facility] Comment on above: Performed By: #### C VDTBH #### [facility] [address] [place] [address] Dr. Ember Teague Hemoglobin Ql (U) Negative Normal NEGATIVE [facility] Comment on above: Performed By: #### C VDTBH #### [facility] [address] [place] [address] Dr. Ember Teague Ketones Ql (U) Negative Normal NEGATIVE [facility] Comment on above: Performed By: #### C VDTBH #### [facility] [address] [place] [address] Dr. Ember Teague LEUKOCYTES TRACE Abnormal NEGATIVE [facility] Comment on above: Performed By: #### C VDTBH #### [facility] [address] [place] [address] Dr. Ember Teague MUCOUS NONE SEEN Normal NONE SEEN [facility] Comment on above: Performed By: #### C VDTBH #### [facility] [address] [place] [address] Dr. Ember Teague Nitrite Ql (U) Negative Normal NEGATIVE [facility] Comment on above: Performed By: #### C VDTBH #### [facility] [address] [place] [address] Dr. Ember Teague pH (U) 5.0 [pH] Normal 5-9 [facility] Comment on above: Performed By: #### C VDTBH #### [facility] [address] [place] [address] Dr. Ember Teague RBC NONE SEEN Abnormal 0-2 [facility] Comment on above: Performed By: #### C VDTBH #### [facility] [address] [place] [address] Dr. Ember Teague SPEC GRAVITY 1.015 Normal 1.005-<=1.025 [facility] Comment on above: Performed By: #### C VDTBH #### [facility] [address] [place] [address] Dr. Ember Teague UA PROTEIN TRACE Normal NEGATIVE/ TRACE [facility] Comment on above: Performed By: #### C VDTBH #### [facility] [address] [place] [address] Dr. Ember Teague Urobilinogen Qn (U) 0.2 {Esau'U}/dL Normal 0.2 - 1. 0 [facility] Comment on above: Performed By: #### C VDTBH #### [facility] [address] [address] [address] Ember Teague WBC 0-2 Abnormal NONE SEEN [facility] Comment on above: Performed By: #### C VDTBH #### [facility] [address] [place] [address] Dr. Ember Teague URIC ACID SERUMon 05-02-2022 Urate [Mass/Vol] 4.4 mg/dL Normal 2.6-6.0 [facility] Comment on above: Performed By: #### C #### [facility] [address] [place] [address] Dr. Ember Teague URINE T PROTEIN CREAT RATIOo n 05-02-2022 Protein (U) [Mass/Vol] 33.7 mg/dL Critically high <=12.0 [facility] Comment on above: Performed By: #### C VDTBH #### [facility] [address] [address] [address] Ember Teague UR PROT CREAT RAT 0.69 Normal [facility] Comment on above: Performed By: #### C VDTBH #### [facility] [address] [place] [address] Dr. Ember Teague URINE CREAT 48.93 mg/dL Normal 20.00-300.00 [facility] Comment on above: Performed By: #### C VDTBH #### [facility] [address] [place] [address] Dr. Ember Teague Vital Signs Date Time Vital Sign Value Performing Clinician Facility 02-15-2025 09:51-0400 Body height 168.9 cm Lorraine Mayer MD Work Phone: [facility] 02-15-2025 09:51-0400 Body mass index (BMI) [Ratio] 31 kg/m2 Lorraine Mayer MD Work Phone: [facility] 02-15-2025 09:51-0400 Body weight 88.45 kg Lorraine Mayer MD Work Phone: [facility] 02-15-2025 09:51-0400 Diastolic blood pressure 62 mm[Hg] Lorraine Mayer MD Work Phone: [facility] 02-15-2025 09:51-0400 Heart rate 63 /min Lorraine Mayer MD Work Phone: [facility] 02-15-2025 09:51-0400 Respiratory rate 16 /min Lorraine Mayer MD Work Phone: [facility] 02-15-2025 09:51-0400 SaO2% (BldA) [Mass fraction] 97 % Lorraine Mayer MD Work Phone: [facility] 02-15-2025 09:51-0400 Systolic blood pressure 132 mm[Hg] Lorraine Mayer MD Work Phone: [facility] 01-14-2025 09:15-0400 Body height 168.91 cm [facility] 01-14-2025 09:15-0400 Body mass index (BMI) [Ratio] 30.8 kg/m2 [facility] 01-14-2025 09:15-0400 Body temperature 98.2 [degF] [facility] 01-14-2025 09:15-0400 Body weight 88.05 kg [facility] 01-14-2025 09:15-0400 Diastolic blood pressure 58 mm[Hg] [facility] 01-14-2025 09:15-0400 Heart rate 65 /min [facility] 01-14-2025 09:15-0400 Respiratory rate 16 /min [facility] 01-14-2025 09:15-0400 SaO2% (BldA) [Mass fraction] 98 % [facility] 01-14-2025 09:15-0400 Systolic blood pressure 128 mm[Hg] [facility] 11-16-2024 09:49-0500 Body height 168.9 cm Lorraine Mayer MD Work Phone: [facility] 11-16-2024 09:49-0500 Body mass index (BMI) [Ratio] 30.53 kg/m2 Lorraine Mayer MD Work Phone: [facility] 11-16-2024 09:49-0500 Body weight 87.09 kg Lorraine Mayer MD Work Phone: [facility] 11-16-2024 09:49-0500 Diastolic blood pressure 80 mm[Hg] Lorraine Mayer MD Work Phone: [facility] 11-16-2024 09:49-0500 Heart rate 62 /min Lorraine Mayer MD Work Phone: [facility] 11-16-2024 09:49-0500 Respiratory rate 16 /min Lorraine Mayer MD Work Phone: [facility] 11-16-2024 09:49-0500 SaO2% (BldA) [Mass fraction] 97 % Lorraine Mayer MD Work Phone: [facility] 11-16-2024 09:49-0500 Systolic blood pressure 130 mm[Hg] Lorraine Mayer MD Work Phone: [facility] 01-17-2024 12:56-0400 Body height 168.9 cm Thuan Lucas MD Work Phone: [facility] 01-17-2024 12:56-0400 Body mass index (BMI) [Ratio] 30.05 kg/m2 Thuan Lucas MD Work Phone: [facility] 01-17-2024 12:56-0400 Body weight 85.73 kg Thuan Lucas MD Work Phone: [facility] 01-17-2024 12:56-0400 Diastolic blood pressure 70 mm[Hg] Thuan Lucas MD Work Phone: [facility] 01-17-2024 12:56-0400 Heart rate 60 /min Thuan Lucas MD Work Phone: [facility] 01-17-2024 12:56-0400 SaO2% (BldA) [Mass fraction] 98 % Thuan Lucas MD Work Phone: [facility] 01-17-2024 12:56-0400 Systolic blood pressure 180 mm[Hg] Thuan Lucas MD Work Phone: [facility] 11-18-2023 10:00-0500 Body height 168.91 cm Ron Doreen Other [facility] Other 11-18-2023 10:00-0500 Body mass index (BMI) [Ratio] 29.85 kg/m2 Ron Doreen Other [facility] Other 11-18-2023 10:00-0500 Body temperature 97.3 [degF] Ron Doreen Other [facility] Other 11-18-2023 10:00-0500 Body weight 85.19 kg Ron Doreen Other [facility] Other 11-18-2023 10:00-0500 Diastolic blood pressure 79 mm[Hg] Ron Doreen Other [facility] Other 11-18-2023 10:00-0500 Respiratory rate 18 /min Ron Doreen Other [facility] Other 11-18-2023 10:00-0500 SaO2% (BldA) [Mass fraction] 98 % Ron Doreen Other [facility] Other 11-18-2023 10:00-0500 Systolic blood pressure 149 mm[Hg] Ron Doreen Other [facility] Other 11-04-2023 11:00-0500 Body height 168.91 cm Ron Doreen Other [facility] Other 11-04-2023 11:00-0500 Body mass index (BMI) [Ratio] 30.17 kg/m2 Ron Doreen Other [facility] Other 11-04-2023 11:00-0500 Body temperature 97.6 [degF] Ron Doreen Other [facility] Other 11-04-2023 11:00-0500 Body weight 86.09 kg Ron Doreen Other [facility] Other 11-04-2023 11:00-0500 Diastolic blood pressure 76 mm[Hg] Ron Doreen Other [facility] Other 11-04-2023 11:00-0500 Respiratory rate 18 /min Ron Doreen Other [facility] Other 11-04-2023 11:00-0500 SaO2% (BldA) [Mass fraction] 98 % Ron Doreen Other [facility] Other 11-04-2023 11:00-0500 Systolic blood pressure 153 mm[Hg] Ron Doreen Other [facility] Other 10-15-2023 13:00-0500 Body height 168.91 cm Ron Doreen Other [facility] Other 10-15-2023 13:00-0500 Body mass index (BMI) [Ratio] 29.82 kg/m2 Ron Doreen Other [facility] Other 10-15-2023 13:00-0500 Body temperature 97.5 [degF] Ron Doreen Other [facility] Other 10-15-2023 13:00-0500 Body weight 85.1 kg Ron Doreen Other [facility] Other 10-15-2023 13:00-0500 Diastolic blood pressure 68 mm[Hg] Ron Doreen Other [facility] Other 10-15-2023 13:00-0500 Respiratory rate 18 /min Ron Doreen Other [facility] Other 10-15-2023 13:00-0500 SaO2% (BldA) [Mass fraction] 98 % Ron Doreen Other [facility] Other 10-15-2023 13:00-0500 Systolic blood pressure 113 mm[Hg] Ron Doreen Other [facility] Other 08-27-2023 09:40-0500 Body height 168.91 cm Mary Anne Dreamise Other [facility] Other 08-27-2023 09:40-0500 Body mass index (BMI) [Ratio] 30.2 kg/m2 Mary Anne Dreamise Other [facility] Other 08-27-2023 09:40-0500 Body temperature 96.7 [degF] Mary Anne [email or web address] Other [facility] Other 08-27-2023 09:40-0500 Body weight 86.18 kg Mary Anne Ackerman Other [facility] Other 08-27-2023 09:40-0500 Diastolic blood pressure 72 mm[Hg] Mary Anne Mensahs Other [facility] Other 08-27-2023 09:40-0500 Respiratory rate 18 /min Mary Anne Ackerman Other [facility] Other 08-27-2023 09:40-0500 SaO2% (BldA) [Mass fraction] 98 % Mary Anne Ackerman Other [facility] Other 08-27-2023 09:40-0500 Systolic blood pressure 153 mm[Hg] Mary Anne Ackerman Other [facility] Other 08-15-2023 10:20-0500 Body height 168.91 cm Ron Doreen Other [facility] Other 08-15-2023 10:20-0500 Body mass index (BMI) [Ratio] 30.2 kg/m2 Ron Doreen Other [facility] Other 08-15-2023 10:20-0500 Body temperature 97.1 [degF] Ron Doreen Other [facility] Other 08-15-2023 10:20-0500 Body weight 86.18 kg Ron Doreen Other [facility] Other 08-15-2023 10:20-0500 Diastolic blood pressure 79 mm[Hg] Ron Doreen Other [facility] Other 08-15-2023 10:20-0500 Respiratory rate 18 /min Ron Doreen Other [facility] Other 08-15-2023 10:20-0500 SaO2% (BldA) [Mass fraction] 98 % Ron Doreen Other [facility] Other 08-15-2023 10:20-0500 Systolic blood pressure 164 mm[Hg] Ron Doreen Other [facility] Other 08-13-2023 15:40-0500 Body height 168.91 cm Ron Doreen Other [facility] Other 08-13-2023 15:40-0500 Body mass index (BMI) [Ratio] 30.24 kg/m2 Ron Doreen Other [facility] Other 08-13-2023 15:40-0500 Body temperature 97.2 [degF] Ron Doreen Other [facility] Other 08-13-2023 15:40-0500 Body weight 86.27 kg Ron Doreen Other [facility] Other 08-13-2023 15:40-0500 Diastolic blood pressure 79 mm[Hg] Ron Doreen Other [facility] Other 08-13-2023 15:40-0500 Respiratory rate 18 /min Ron Doreen Other [facility] Other 08-13-2023 15:40-0500 SaO2% (BldA) [Mass fraction] 98 % Ron Doreen Other [facility] Other 08-13-2023 15:40-0500 Systolic blood pressure 186 mm[Hg] Ron Doreen Other [facility] Other 08-01-2023 13:00-0400 Body height 168.91 cm Ron Doreen Other [facility] Other 08-01-2023 13:00-0400 Body mass index (BMI) [Ratio] 30.55 kg/m2 Ron Doreen Other [facility] Other 08-01-2023 13:00-0400 Body temperature 97.8 [degF] Ron Doreen Other [facility] Other 08-01-2023 13:00-0400 Body weight 87.18 kg Ron Doreen Other [facility] Other 08-01-2023 13:00-0400 Diastolic blood pressure 72 mm[Hg] Ron Doreen Other [facility] Other 08-01-2023 13:00-0400 Respiratory rate 18 /min Ron Doreen Other [facility] Other 08-01-2023 13:00-0400 SaO2% (BldA) [Mass fraction] 98 % Ron Doreen Other [facility] Other 08-01-2023 13:00-0400 Systolic blood pressure 160 mm[Hg] Ron Doreen Other [facility] Other 06-24-2023 11:40-0400 Body height 168.91 cm Ron Doreen Other [facility] Other 06-24-2023 11:40-0400 Body mass index (BMI) [Ratio] 29.89 kg/m2 Ron Doreen Other [facility] Other 06-24-2023 11:40-0400 Body temperature 97.3 [degF] Ron Doreen Other [facility] Other 06-24-2023 11:40-0400 Body weight 85.28 kg Ron Doreen Other [facility] Other 06-24-2023 11:40-0400 Diastolic blood pressure 75 mm[Hg] Ron Doreen Other [facility] Other 06-24-2023 11:40-0400 Respiratory rate 18 /min Ron Doreen Other [facility] Other 06-24-2023 11:40-0400 SaO2% (BldA) [Mass fraction] 99 % Ron Doreen Other [facility] Other 06-24-2023 11:40-0400 Systolic blood pressure 129 mm[Hg] Ron Doreen Other [facility] Other 06-06-2023 15:20-0400 Body height 168.91 cm Ron Doreen Other [facility] Other 06-06-2023 15:20-0400 Body mass index (BMI) [Ratio] 29.92 kg/m2 Ron Doreen Other [facility] Other 06-06-2023 15:20-0400 Body temperature 96.5 [degF] Ron Doreen Other [facility] Other 06-06-2023 15:20-0400 Body weight 85.37 kg Ron Doreen Other [facility] Other 06-06-2023 15:20-0400 Diastolic blood pressure 49 mm[Hg] Ron Doreen Other [facility] Other 06-06-2023 15:20-0400 Respiratory rate 18 /min Ron Doreen Other [facility] Other 06-06-2023 15:20-0400 SaO2% (BldA) [Mass fraction] 99 % Ron Doreen Other [facility] Other 06-06-2023 15:20-0400 Systolic blood pressure 128 mm[Hg] Ron Doreen Other [facility] Other 04-30-2023 11:40-0400 Body height 168.91 cm Ron Doreen Other [facility] Other 04-30-2023 11:40-0400 Body mass index (BMI) [Ratio] 30.52 kg/m2 Ron Doreen Other [facility] Other 04-30-2023 11:40-0400 Body temperature 96.9 [degF] Ron Doreen Other [facility] Other 04-30-2023 11:40-0400 Body weight 87.09 kg Ron Doreen Other [facility] Other 04-30-2023 11:40-0400 Diastolic blood pressure 80 mm[Hg] Ron Doreen Other [facility] Other 04-30-2023 11:40-0400 Respiratory rate 18 /min Ron Doreen Other [facility] Other 04-30-2023 11:40-0400 SaO2% (BldA) [Mass fraction] 98 % Ron Doreen Other [facility] Other 04-30-2023 11:40-0400 Systolic blood pressure 150 mm[Hg] Ron Doreen Other [facility] Other 04-06-2023 09:00-0400 Body height 168.91 cm Ron Doreen Other [facility] Other 04-06-2023 09:00-0400 Body mass index (BMI) [Ratio] 30.36 kg/m2 Ron Doreen Other [facility] Other 04-06-2023 09:00-0400 Body weight 86.64 kg Ron Odreen Other [facility] Other 04-06-2023 09:00-0400 Diastolic blood pressure 54 mm[Hg] Ron Doreen Other [facility] Other 04-06-2023 09:00-0400 Respiratory rate 18 /min Ron Doreen Other [facility] Other 04-06-2023 09:00-0400 SaO2% (BldA) [Mass fraction] 98 % Ron Doreen Other [facility] Other 04-06-2023 09:00-0400 Systolic blood pressure 144 mm[Hg] Ron Doreen Other [facility] Other 04-02-2023 14:40-0400 Body height 168.91 cm Ron Doreen Other [facility] Other 04-02-2023 14:40-0400 Body mass index (BMI) [Ratio] 30.55 kg/m2 Ron Doreen Other [facility] Other 04-02-2023 14:40-0400 Body temperature 97 [degF] Ron Doreen Other [facility] Other 04-02-2023 14:40-0400 Body weight 87.18 kg Ron Doreen Other [facility] Other 04-02-2023 14:40-0400 Diastolic blood pressure 76 mm[Hg] Ron Doreen Other [facility] Other 04-02-2023 14:40-0400 Respiratory rate 18 /min Ron Doreen Other [facility] Other 04-02-2023 14:40-0400 SaO2% (BldA) [Mass fraction] 98 % Ron Doreen Other [facility] Other 04-02-2023 14:40-0400 Systolic blood pressure 183 mm[Hg] Ron Doreen Other [facility] Other 03-07-2023 09:20-0400 Body height 168.91 cm Ron Doreen Other [facility] Other 03-07-2023 09:20-0400 Body mass index (BMI) [Ratio] 30.52 kg/m2 Ron Doreen Other [facility] Other 03-07-2023 09:20-0400 Body temperature 97.1 [degF] Ron Doreen Other [facility] Other 03-07-2023 09:20-0400 Body weight 87.09 kg Ron Doreen Other [facility] Other 03-07-2023 09:20-0400 Diastolic blood pressure 72 mm[Hg] Ron Doreen Other [facility] Other 03-07-2023 09:20-0400 Respiratory rate 18 /min Ron Doreen Other [facility] Other 03-07-2023 09:20-0400 SaO2% (BldA) [Mass fraction] 97 % Ron Doreen Other [facility] Other 03-07-2023 09:20-0400 Systolic blood pressure 130 mm[Hg] Ron Doreen Other [facility] Other 12-20-2022 13:20-0400 Body height 168.91 cm Ron Doreen Other [facility] Other 12-20-2022 13:20-0400 Body mass index (BMI) [Ratio] 30.68 kg/m2 Ron Doreen Other [facility] Other 12-20-2022 13:20-0400 Body temperature 97.1 [degF] Ron Doreen Other [facility] Other 12-20-2022 13:20-0400 Body weight 87.54 kg Ron Doreen Other [facility] Other 12-20-2022 13:20-0400 Diastolic blood pressure 72 mm[Hg] Ron Doreen Other [facility] Other 12-20-2022 13:20-0400 Respiratory rate 18 /min Ron Doreen Other [facility] Other 12-20-2022 13:20-0400 SaO2% (BldA) [Mass fraction] 99 % Ron Doreen Other [facility] Other 12-20-2022 13:20-0400 Systolic blood pressure 139 mm[Hg] Ron Doreen Other [facility] Other 11-05-2022 14:00-0500 Body height 168.91 cm Ron Doreen Other [facility] Other 11-05-2022 14:00-0500 Body mass index (BMI) [Ratio] 30.59 kg/m2 Ron Doreen Other [facility] Other 11-05-2022 14:00-0500 Body temperature 96.8 [degF] Ron Doreen Other [facility] Other 11-05-2022 14:00-0500 Body weight 87.27 kg Ron Doreen Other [facility] Other 11-05-2022 14:00-0500 Diastolic blood pressure 72 mm[Hg] Ron Doreen Other [facility] Other 11-05-2022 14:00-0500 Respiratory rate 18 /min Ron Doreen Other [facility] Other 11-05-2022 14:00-0500 SaO2% (BldA) [Mass fraction] 98 % Ron Doreen Other [facility] Other 11-05-2022 14:00-0500 Systolic blood pressure 157 mm[Hg] Ron Doreen Other [facility] Other 09-27-2022 16:00-0500 Body height 168.91 cm Jana Monson Other [facility] Other 09-27-2022 16:00-0500 Body mass index (BMI) [Ratio] 30.55 kg/m2 Jana Monson Other [facility] Other 09-27-2022 16:00-0500 Body temperature 96.8 [degF] Jana Monson Other [facility] Other 09-27-2022 16:00-0500 Body weight 87.18 kg Jana Monson Other [facility] Other 09-27-2022 16:00-0500 Diastolic blood pressure 73 mm[Hg] Jana Monson Other [facility] Other 09-27-2022 16:00-0500 Respiratory rate 18 /min Jana Monson Other [facility] Other 09-27-2022 16:00-0500 SaO2% (BldA) [Mass fraction] 98 % Jana Monson Other [facility] Other 09-27-2022 16:00-0500 Systolic blood pressure 159 mm[Hg] Jana Monson Other [facility] Other 08-22-2022 12:00-0500 Body height 168.91 cm Ron Doreen Other [facility] Other 08-22-2022 12:00-0500 Body mass index (BMI) [Ratio] 30.65 kg/m2 Ron Doreen Other [facility] Other 08-22-2022 12:00-0500 Body temperature 96.9 [degF] Ron Doreen Other [facility] Other 08-22-2022 12:00-0500 Body weight 87.45 kg Ron Doreen Other [facility] Other 08-22-2022 12:00-0500 Diastolic blood pressure 75 mm[Hg] Ron Doreen Other [facility] Other 08-22-2022 12:00-0500 Respiratory rate 18 /min Ron Doreen Other [facility] Other 08-22-2022 12:00-0500 SaO2% (BldA) [Mass fraction] 96 % Ron Doreen Other [facility] Other 08-22-2022 12:00-0500 Systolic blood pressure 121 mm[Hg] Ron Doreen Other [facility] Other 05-08-2022 10:20-0400 Body height 168.91 cm Ron Doreen Other [facility] Other 05-08-2022 10:20-0400 Body mass index (BMI) [Ratio] 31.54 kg/m2 Ron Doreen Other [facility] Other 05-08-2022 10:20-0400 Body temperature 97.6 [degF] Ron Doreen Other [facility] Other 05-08-2022 10:20-0400 Body weight 89.99 kg Ron Doreen Other [facility] Other 05-08-2022 10:20-0400 Diastolic blood pressure 68 mm[Hg] Ron Doreen Other [facility] Other 05-08-2022 10:20-0400 Respiratory rate 18 /min Ron Doreen Other [facility] Other 05-08-2022 10:20-0400 SaO2% (BldA) [Mass fraction] 98 % Ron Doreen Other [facility] Other 05-08-2022 10:20-0400 Systolic blood pressure 131 mm[Hg] Ron Doreen Other [facility] Other 04-14-2022 10:20-0400 Body height 168.91 cm Ron Doreen Other [facility] Other 01-18-2022 10:20-0400 Body mass index (BMI) [Ratio] 31 kg/m2 Ron Doreen Other [facility] Other 01-18-2022 10:20-0400 Body temperature 96.4 [degF] Ron Doreen Other [facility] Other 01-18-2022 10:20-0400 Body weight 88.45 kg Ron Doreen Other [facility] Other 01-18-2022 10:20-0400 Diastolic blood pressure 74 mm[Hg] Ron Doreen Other [facility] Other 01-18-2022 10:20-0400 Respiratory rate 18 /min Ron Doreen Other [facility] Other 01-18-2022 10:20-0400 SaO2% (BldA) [Mass fraction] 97 % Ron Doreen Other [facility] Other 01-18-2022 10:20-0400 Systolic blood pressure 170 mm[Hg] Ron Doreen Other [facility] Other Encounters Encounter Date Encounter Type Care Provider Facility Start: 04-21-2025 End: 04-21-2025 ambulatory Dhruv Rubi MD Work Phone: [facility] Work Phone: Start: 04-21-2025 End: 04-21-2025 Departed Referred Dmitriy Lynne MD -LAB [facility] Start: 03-23-2025 End: 03-23-2025 Office outpatient visit 15 minutes Greg Tineo MD Work Phone: [facility] Comment on above: Seborrheic keratosis (Primary Dx); Seborrheic keratosis, inflamed; Solar purpura; Lentigines Start: 03-23-2025 End: 03-23-2025 ambulatory GREG ITNEO Not Available Start: 03-23-2025 End: 03-23-2025 Bamboo flowsviry Tineo MD Work Phone: [facility] Start: 03-23-2025 End: 03-23-2025 Bamklaus Tineo MD Work Phone: [facility] Start: 03-07-2025 End: 03-12-2025 Refill Marie Garcia APRN-IT COMPLIANCE ANALYST Work Phone: [facility] Comment on above: Med Refill Start: 02-25-2025 End: 02-25-2025 ambulatory EHAB [facility] Start: 02-15-2025 End: 02-15-2025 Bamboo flowsviry Mayer MD Work Phone: [facility] Start: 02-15-2025 End: 02-15-2025 Bamboo flowsviry Mayer MD Work Phone: [facility] Start: 02-15-2025 End: 02-15-2025 Office outpatient visit 25 minutes Lorraine Mayer MD Work Phone: [facility] Comment on above: Type 2 diabetes diony itus with hyperglycemia, with long-term 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 (CMS/HCC) (Primary Dx); Vitamin D deficiency; Microalbuminuria; Hyperlipemia, mixed (CMS/HCC); Primary hypertension (CMS/HCC); Insulin long-term use (CMS/HCC); 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CMS/HCC); Encounter for dietary consultation; Chronic renal disease, stage IV (CMS/HCC) Start: 02-15-2025 End: 02-15-2025 ambulatory LORRAINE MAYER Not Available Start: 01-14-2025 End: 01-14-2025 ambulatory [facility] Work Phone: Start: 01-14-2025 End: 01-14-2025 Patient encounter procedure [facility] Eliel Work Phone: Start: 01-05-2025 Non-patient / Non-visit [facility] [employer] Work Phone: Start: 12-21-2024 End: 12-21-2024 Telephone encounter Cary Goldman CMA [facility] Start: 12-12-2024 End: 2024 Refill Cristina Salamanca TEAM DRIVER-IT COMPLIANCE ANALYST Work Phone: [facility] Comment on above: Med Refill Start: 11-27-2024 End: 11-27-2024 ambulatory ALEJANDRO [facility] Start: 11-16-2024 End: 11-16-2024 Bamboo flowsheet Lorraine Mayer MD Work Phone: [facility] Start: 11-16-2024 End: 11-16-2024 Parmjit flowsviry Mayer MD Work Phone: [facility] Start: 11-16-2024 End: 11-16-2024 Office outpatient visit 25 minutes Lorraine Mayer MD Work Phone: [facility] Comment on above: Type 2 [...] Start: 09-28-2024 End: 09-28-2024 Bamboo flowsheet Ga Josh Ming DPM Work Phone: [facility] Start: 09-28-2024 End: 09-28-2024 Bamboo flowsheet Ga Josh Ming DPM Work Phone: [facility] Start: 09-28-2024 End: 09-28-2024 Patient encounter procedure Ga Lai DPM Work Phone: [facility] Comment on above: Onychomycosis (Prima ry Dx); Pain in both feet; Corns and callosities; Type 2 diabetes mellitus without complication, with long-term 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 (CMS/HCC) Start: 09-28-2024 End: 09-28-2024 ambulatory GA LAI Not Available Start: 09-05-2024 End: 09-11-2024 Refill Marie Garcia APRN-IT COMPLIANCE ANALYST Work Phone: [facility] Comment on above: Med Refill Start: 07-13-2024 End: 07-13-2024 Bamboo flowsheet Lorraine Mayer MD Work Phone: [facility] Start: 07-13-2024 End: 07-13-2024 Bamboo flowsheet Lorraine Mayer MD Work Phone: [facility] Start: 07-13-2024 End: 07-13-2024 Office outpatient visit 25 minutes Lorraine Mayer MD Work Phone: [facility] Comment on above: Type 2 [...] Bamboo flowsheet Ga Lai DPM Work Phone: [facility] Start: 06-25-2024 End: 06-25-2024 Bamboo flowsheet Ga Lai DPM Work Phone: [facility] Start: 06-25-2024 End: 06-25-2024 Patient encounter procedure Ga Lai DPM Work Phone: [facility] Comment on above: Onychomycosis (Prima ry Dx); Pain in both feet; Corns and callosities; Type 2 diabetes mellitus without complication, with long-term 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 ([facility]) Start: 06-25-2024 End: 06-25-2024 ambulatory GA LAI Not Available Start: 06-04-2024 End: 06-04-2024 Bamboo flowsviry Tineo MD Work Phone: [facility] Start: 06-04-2024 End: 06-04-2024 Bamboo cornelio Tineo MD Work Phone: [facility] Start: 06-04-2024 End: 06-04-2024 Office outpatient visit 15 minutes Greg Tineo MD Work Phone: [facility] Comment on above: Granuloma annulare ( Primary Dx) Start: 06-04-2024 End: 06-04-2024 ambulatory GREG TINEO Not Available Start: 05-25-2024 End: 05-25-2024 Patient encounter procedure Greg Tineo MD Work Phone: [facility] Comment on above: Rash and other nonsp ecific skin eruption (Primary Dx) Start: 05-25-2024 End: 05-25-2024 ambulatory GREG A TOBIASITTI Not Available Start: 05-11-2024 End: 05-11-2024 ambulatory [facility] Start: 04-21-2024 End: 04-21-2024 ambulatory GREG TINEO Not Available Start: 04-16-2024 End: 04-16-2024 ambulatory GA LAI Not Available Start: 03-18-2024 End: 03-23-2024 Refill Marie Garcia TEAM DRIVER-IT COMPLIANCE ANALYST Work Phone: [facility] Comment on above: Med Refill Start: 01-17-2024 End: 01-17-2024 ambulatory THUAN LUCAS [facility] Start: 01-17-2024 End: 01-17-2024 Office outpatient visit 15 minutes Sarthak Rueda MD Work Phone: [facility] Comment on above: Paroxysmal atrial fi brillation ([facility]) (Primary Dx); Stage 4 chronic kidney disease ([facility]); 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 ([facility]); Other forms of angina pectoris ([facility]); Essential hypertension; Atherosclerosis of [place] coronary artery of [place] heart without angina pectoris; H/O four vessel coronary artery bypass graft; Hypertensive urgency; Shortness of breath; Localized edema Start: 01-16-2024 End: 01-16-2024 Telephone encounter Cary Goldman CMA [facility] Start: 12-21-2023 Refill Luis dominique PA-C Work Phone: [facility] Comment on above: Med Refill Start: 11-18-2023 End: 11-18-2023 ambulatory Ron Doreen Other [facility] Other Start: 11-18-2023 Office outpatient vi sit 15 minutes Ron Doreen [facility] Start: 11-04-2023 (INJECTION) INJECTION Ron Doreen [facility] Start: 11-04-2023 End: 11-04-2023 ambulatory Ron Doreen Other [facility] Other Start: 10-15-2023 End: 10-15-2023 ambulatory Ron Doreen Other [facility] Other Start: 10-15-2023 Office outpatient vi sit 15 minutes Ron Doreen [facility] Start: 10-08-2023 End: 10-08-2023 ambulatory Aziz Bakhous Other [facility] Other Start: 10-08-2023 Telephone encounter Aziz Bakhous [facility] Start: 09-15-2023 End: 09-15-2023 ambulatory Ron Doreen Other [facility] Other Start: 09-15-2023 Telephone encounter Ron Doreen [facility] Start: 09-09-2023 End: 09-09-2023 ambulatory Ron Doreen Other [facility] Other Start: 09-09-2023 Telephone encounter Ron Doreen [facility] Start: 08-27-2023 (INJECTION) INJECTION Aziz Bakhous [facility] Start: 08-27-2023 End: 08-27-2023 ambulatory Aziz Bakhous Other [facility] Other Start: 08-15-2023 (INJECTION) INJECTION Ron Doreen [facility] Start: 08-15-2023 End: 08-15-2023 ambulatory Ron Doreen Other [facility] Other Start: 08-13-2023 (INJECTION) INJECTION Ron Doreen [facility] Start: 08-13-2023 End: 08-13-2023 ambulatory Ron Doreen Other [facility] Other Start: 08-01-2023 End: 08-01-2023 ambulatory Ron Doreen Other [facility] Other Start: 08-01-2023 Office outpatient vi sit 15 minutes Ron Doreen [facility] Start: 06-24-2023 End: 06-24-2023 ambulatory Ron Doreen Other [facility] Other Start: 06-24-2023 Office outpatient vi sit 10 minutes Ron Doreen [facility] Start: 06-06-2023 End: 06-06-2023 ambulatory Ron Doreen Other [facility] Other Start: 06-06-2023 Office outpatient vi sit 15 minutes Ron Doreen [facility] Start: 04-30-2023 End: 04-30-2023 ambulatory Ron Doreen Other [facility] Other Start: 04-30-2023 Office outpatient vi sit 15 minutes Ron Doreen [facility] Start: 04-06-2023 (INJECTION) INJECTION Ron Doreen [facility] Start: 04-06-2023 End: 04-06-2023 ambulatory Ron Doreen Other [facility] Other Start: 04-06-2023 Telephone encounter Ron Doreen [facility] Start: 04-02-2023 End: 04-02-2023 ambulatory Ron Doreen Other [facility] Other Start: 04-02-2023 Office outpatient vi sit 15 minutes Ron Doreen [facility] Start: 04-02-2023 Telephone encounter Ron Doreen [facility] Start: 03-07-2023 End: 03-07-2023 ambulatory Ron Doreen Other [facility] Other Start: 03-07-2023 Office outpatient vi sit 15 minutes Ron Doreen [facility] Start: 01-22-2023 End: 01-23-2023 ambulatory RON DOREEN Facility: Start: 12-20-2022 End: 12-20-2022 ambulatory Ron Doreen Other [facility] Other Start: 12-20-2022 Office outpatient vi sit 15 minutes Ron Doreen [facility] Start: 12-17-2022 End: 12-18-[address] DHRUV RUBI . Facility:[facility] Start: 12-10-2022 End: 12-11-2022 ambulatory RON DOREEN Facility:[facility] Start: 11-20-2022 End: 11-21-[address] BENI APARICIO Facility:[facility] Start: 11-05-2022 End: 11-05-2022 ambulatory Ron Doreen Other [facility] Other Start: 11-05-2022 Office outpatient vi sit 15 minutes Ron Doreen [facility] Start: 10-29-2022 End: 10-30-[address] JANA MONSON Facility:[facility] Start: 10-24-2022 End: 10-24-[address] LILLIAN ACOSTA . Facility:[facility] Start: 10-24-2022 End: 10-25-[address] DHRUV RUBI . Facility:[facility] Start: 09-27-2022 End: 09-27-2022 ambulatory Jana Monson Other [facility] Other Start: 09-27-2022 Office outpatient vi sit 15 minutes Jana Monson [facility] Start: 09-18-2022 End: 09-19-2022 ambulatory RON DOREEN Facility:[facility] Start: 09-11-2022 End: 09-11-[address] DHRUV RUBI . Facility:[facility] Start: 08-22-2022 End: 08-22-2022 ambulatory Ron Doreen Other [facility] Other Start: 08-22-2022 Office outpatient vi sit 15 minutes Ron Doreen [facility] Start: 08-13-2022 End: 08-14-2022 ambulatory RON DOREEN Facility:[facility] Start: 06-25-2022 End: 06-26-[address] DHRUV RUBI . Facility:[facility] Start: 06-18-2022 End: 06-18-[address] DHRUV RUBI . Facility:[facility] Start: 06-01-2022 End: 06-02-[address] YANET HUERTA Facility:[facility] Start: 05-28-2022 End: 05-28-2022 ambulatory Ron Doreen Other [facility] Other Start: 05-28-2022 Telephone encounter Ron Doreen [facility] Start: 05-21-2022 End: 05-22-[address] DHRUV RUBI . Facility:[facility] Start: 05-16-2022 End: 05-16-2022 ambulatory Ron Doreen Other [facility] Other Start: 05-16-2022 Telephone encounter Ron Doreen [facility] Start: 05-10-2022 End: 05-10-2022 ambulatory Ron Doreen Other [facility] Other Start: 05-10-2022 Telephone encounter Ron Doreen [facility] Start: 05-08-2022 End: 05-08-2022 ambulatory Ron Doreen Other [facility] Other Start: 05-08-2022 Office outpatient vi sit 25 minutes Ron Doreen [facility] Start: 05-02-2022 End: 05-03-2022 ambulatory RON DOREEN Facility:[facility] Start: 04-24-2022 End: 04-24-2022 ambulatory Aziz Bakhous Other [facility] Other Start: 04-24-2022 Telephone encounter Aziz Bakhous [facility] Start: 01-18-2022 End: 01-18-2022 ambulatory Ron Doreen Other [facility] Other Start: 01-18-2022 Office outpatient vi sit 25 minutes Corina WATTS [facility] Start: 05-21-2017 End: 05-22-2017 Ambulatory DEFAULT PHYSICIAN Facility:[facility] Procedures Date Procedure Procedure [...] vessel coronary artery bypass graft Marck Lazo TEAM DRIVER-IT COMPLIANCE ANALYST Work Phone: History of coronary artery bypass grafting H/O four vessel coronary artery bypass graft Marie Garcia TEAM DRIVER-IT COMPLIANCE ANALYST Work Phone: Plan of Treatment Date Care Activity Detail Author Start: 03-23-2026 End: 03-23-2026 Patient encounter procedure 03/23/2026 10:00 AM EDT Office Visit [facility] [address] [place] [address] Greg Tineo MD [address] [place] [address] [facility] Start: 06-14-2025 End: 06-14-2025 Patient encounter procedure 06/14/2025 10:10 AM EDT Office Visit [facility] [address] [place] [address] Lorraine Mayer MD [address] [place], [place] [id number] [facility] Start: 06-07-2025 Influenza vaccination [facility] Start: 04-21-2025 Urine culture [facility] Start: 04-21-2025 Bacteria identified in Urine by Culture Urine Culture [facility] Start: 03-23-2025 End: 03-23-2025 Patient encounter procedure 03/23/2025 2:30 PM EDT Office Visit [facility] [address] [place] [address] Greg Tineo MD [address] [place], [place] [id number] Arrived [facility] Comment on above: Arrived Start: 03-16-2025 End: 03-16-2025 Patient encounter procedure 03/16/2025 8:35 AM EDT Office Visit [facility] [address] [place] [address] Greg Tineo MD [address] [place] [address] [facility] Start: 02-15-2025 End: 02-15-2025 Patient encounter procedure [facility] Comment on above: Type 2 diabetes mellitus with hyperglyce constance, with long-term 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 ([facility]) Start: 01-16-2025 Adult BMI Screening Adult BMI Screening [facility] Start: 01-16-2025 Tobacco Screening Tobacco Screening [facility] Start: 12-31-2024 End: 12-31-2024 Patient encounter procedure 12/31/2024 10:15 AM EDT Procedure Visit [facility] [address] [place] [address] Ga Lai DPM [address] [place] [address] [facility] Start: 11-16-2024 End: 11-16-2024 Patient encounter procedure [facility] Comment on above: Type 2 diabetes mellitus with hyperglyce constance, with long-term 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 ([facility]) Start: 09-28-2024 End: 09-28-2024 [facility] Comment on above: Arrived Start: 07-13-2024 End: 07-13-2024 Patient encounter procedure [facility] Comment on above: Type 2 diabetes mellitus with hyperglyce constance, with long-term 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 ([facility]) Start: 06-25-2024 End: 06-25-2024 Patient encounter procedure [facility] Comment on above: Arrived Start: 06-07-2024 COVID-19 Vaccine ( season) COVID-19 Vaccine () [facility] Start: 06-07-2024 Influenza vaccination [facility] Start: 06-04-2024 End: 06-04-2024 [facility] on above: Arrived Start: 03-19-2024 Adult BMI Screening Adult BMI Screening [facility] Start: 03-19-2024 Tobacco Screening Tobacco Screening [facility] Start: 02-21-2024 End: 02-21-2024 Patient encounter procedure 02/21/2024 2:00 PM EDT Office Visit [facility] [address] [place] [address] Thuan Lucas MD [address] [place] [address] [facility] Start: 01-24-2024 End: 01-16-2025 Basic metabolic 2000 panel - Serum or Plasma Basic Metabolic Panel Lab Routine Stage 4 chronic kidney disease ([facility]) Essential hypertension Expected: 01/24/2024 (Approximate), Expires: 01/16/2025 [facility] Work Phone: Comment on above: Expected: 01/24/2024 (Approximate), Expi res: 01/16/2025 Start: 01-24-2024 End: 01-24-2024 Clinical Support 01/24/2024 10:30 AM EDT Clinical Support [facility] [address] [place] [phone] [facility] Start: 01-17-2024 End: 01-17-2024 Patient encounter procedure 01/17/2024 1:00 PM EDT Office Visit [facility] [address] [place] [address] Sarthak Rueda MD [address] [place] [address] Thuan Lucas MD [address] [place] [address] [facility] Start: 06-07-2023 COVID-19 Vaccine ( season) COVID-19 Vaccine () [facility] Start: 06-07-2023 Influenza vaccination Influenza Vaccine [facility] Start: 12-28-2021 Depression Screening Depression Screening [facility] Start: 2009 Fall Risk Screening Fall Risk Screening [facility] Start: 1994 Administration of varicella zoster vaccine Zoster (Shingles) Vaccine (1 of 2) [facility] Start: 12-15-1963 DTaP,Tdap and Td Vaccines (1 - Tdap) DTaP,Tdap and Td Vaccines (1 - Tdap) [facility] [employer] Start: 1962 Adult BMI Follow Up Plan Adult BMI Follow Up Plan [facility] Start: 1956 Depression Screening Depression Screening [facility] [employer] Start: 1944 Medicare Annual Wellness Visit Medicare Annual Wellness Visit [facility] Dermatopathology exam Dermatopat hology exam Pathology and Cytology Timed Rash and other nonspecific skin eruption Release Upon Ordering for 1 Occurrences starting 05/25/2024 [facility] [employer] Work Phone: Comment on above: Release Upon Ordering for 1 Occurrences starting 05/25/2024 End: 12-12-2025 Lipid panel Lipid panel Lab Routine Medication management 1 Occurrences starting 2024 until 12/12/2025 [employer] Work Phone: Comment on above: 1 Occurrences starting 2024 until 12/12/2025 End: 12-12-2025 Magnesium [Mass/volume] in Serum or Plasma Magnesium Lab Routine Medication management 1 Occurrences starting 2024 until 12/12/2025 [employer] Work Phone: Comment on above: 1 Occurrences starting 2024 until 12/12/2025 Renal function 2000 panel - Serum or Plasma [facility] Immunizations Immunization Date Immunization Notes Care Provider Fa cili 07-11-2023 influenza virus vacc ine, unspecified formulation Lorraine Mayer MD Work Phone: [facility] 07-10-2022 unknown vaccine or immune globulin Ga Lai DPM Work Phone: [facility] 07-20-2021 unknown vaccine or immune globulin Ga Lai DPM Work Phone: [facility] 07-18-2020 Seasonal trivalent influenza vaccine, adjuvanted, preservative free Luis Quiles PA-C Work Phone: [facility] [employer] [facility] 07-18-2020 influenza virus vacc ine, unspecified formulation Luis Kb PA-C Work Phone: [facility] 07-22-2019 Seasonal trivalent influenza vaccine, adjuvanted, preservative free Luis Kb PA-C Work Phone: [facility] 07-20-2019 influenza, injectabl e, quadrivalent, preservative free Ga Lai DPM Work Phone: [facility] 07-14-2018 Seasonal trivalent influenza vaccine, adjuvanted, preservative free Luis Kb PA-C Work Phone: [facility] 07-15-2017 pneumococcal conjuga te vaccine, 13 valent Luis Kb PA-C Work Phone: [facility] 07-08-2017 influenza, high dose seasonal, preservative-free Luis Kb PA-C Work Phone: [facility] 07-25-2016 influenza, high dose seasonal, preservative-free Luis Kb PA-C Work Phone: [facility] 07-11-2015 influenza, high dose seasonal, preservative-free Luis Kb PA-C Work Phone: [facility] 07-16-2014 influenza, seasonal, injectable Luis Kb PA-C Work Phone: [facility] 07-10-2013 influenza, seasonal, injectable Luis Kb PA-C Work Phone: [facility] 08-08-2012 influenza virus vacc ine, unspecified formulation Luis Kb PA-C Work Phone: [facility] 08-08-2012 pneumococcal polysaccharide vaccine, 23 valent Luis Kb PA-C Work Phone: [facility] 07-11-2011 influenza virus vacc ine, unspecified formulation Luis Kb PA-C Work Phone: [facility] 08-15-2010 influenza virus vacc ine, unspecified formulation Luis Kb PA-C Work Phone: [facility] 07-26-2009 influenza virus vacc ine, unspecified formulation Luis Kb PA-C Work Phone: [facility] 08-04-2008 influenza virus vacc ine, unspecified formulation Luis Kb PA-C Work Phone: [facility] 08-13-2007 influenza virus vacc ine, unspecified formulation Luis Kb PA-C Work Phone: [facility] 08-11-2004 influenza virus vacc ine, unspecified formulation Luis Kb PA-C Work Phone: [facility] 08-09-2003 influenza virus vacc ine, unspecified formulation Luis Kb PA-C Work Phone: [facility] 08-09-2003 pneumococcal polysaccharide vaccine, 23 valent Luis Kb PA-C [facility] Payers Date Payer Category Payer Self-pay 2021 Medicaid AET MEDICARE A DVANTAGE [id number] 2021 Medicare [id number] 2021 Medicare O AETNA MEDICARE [id number] 1959 Medicare [id number] [id number] 1944 Unknown [id number] 2.16.840.1.594002.3.579.2.593 1944 Unknown [id number] 2.16.840.1.599549.3.579.2.593 1944 Unknown [id number] 2.16.840.1.836106.3.579.2.593 1944 Unknown [id number] 2.16.840.1.428916.3.579.2.593 1944 Unknown [id number] 2.16.840.1.228793.3.579.2.593 1944 Unknown [id number] 2.16.840.1.244176.3.579.2.593 1944 Unknown [id number] 2.16.840.1.062995.3.579.2.593 1944 Unknown [id number] 2.16.840.1.623260.3.579.2.593 1944 Unknown [id number] 2.16.840.1.260980.3.579.2.593 1944 Unknown [id number] 2.16.840.1.682173.3.579.2.593 1944 Unknown [id number] 2.16.840.1.017342.3.579.2.593 1944 Unknown [id number] 2.16.840.1.981939.3.579.2.593 1944 Unknown [id number] 2.16.840.1.778462.3.579.2.593 1944 Unknown [id number] 2.16.840.1.349617.3.579.2.593 1944 Unknown [id number] 2.16.840.1.065062.3.579.2.593 1944 Unknown [id number] 2.16.840.1.073206.3.579.2.593 1944 Unknown [id number] 2.16.840.1.226815.3.579.2.1286 1944 Unknown [id number] 2.16.840.1.291699.3.579.2.1259 1944 Unknown [id number] 2.16.840.1.780292.3.579.2.1259 1944 Unknown [id number] 2.16.840.1.191749.3.579.2.1259 1944 Unknown [id number] 2.16.840.1.447547.3.579.2.1259 1944 Unknown [id number] 2.16.840.1.189160.3.579.2.1259 1944 Unknown [id number] 2.16.840.1.516919.3.579.2.1259 1944 Unknown [id number] 2.16.840.1.790348.3.579.2.1259 1944 Unknown [id number] 2.16.840.1.046306.3.579.2.1259 1944 Unknown [id number] 2.16.840.1.492402.3.579.2.1259 1944 Unknown [id number] 2.16.840.1.208193.3.579.2.1259 Medicare Medicare [id number] Unknown Unknown [facility] [id number] Unknown [id number] 2.16.840.1.699613.3.579.2.531 Social History Date Type Detail Facility Unknown if ever smoked [facility] Other Start: 06-25-2024 End: 09-28-2024 Sex Assigned At [facility] Other Start: 03-14-2023 End: 06-15-2024 Tobacco smoking status [facility] Ex-smoker [facility] End: 10-07-1969 History of tobacco use Current smoker [facility] End: 10-07-1969 History of tobacco use Cigarette Smoker [facility] Start: 03-14-2023 End: 01-17-2024 Tobacco use and exposure Smokeless tobacco non-user [facility] Start: 06-25-2024 End: 03-23-2025 Alcoholic beverage intake Not Asked [facility] Start: 06-25-2024 End: 09-28-2024 History of Social function [facility] Start: 10-21-2023 Alcohol Comment caffeine intake: 1-2 cups per day [facility] Start: 1945 Sex assigned at Not on file [facility] Start: 03-19-2023 End: 01-17-2024 Alcoholic beverage intake Ex-drinker (finding) [facility] Do you belong to any clubs or organizations such as anabaptism groups, unions, fraternal or athletic groups, or school groups? No [facility] Are you now , , , , never or living with a partner? [facility] How hard is it for y ou to pay for the very basics like food, housing, medical care, and heating Not hard at all [facility] Do you feel stress - tense, restless, nervous, or anxious, or unable to sleep at night because your mind is troubled all the time - these days [OSQ] Not at all [facility] Start: 05-21-2017 End: 01-14-2025 Sex Female (finding) [employer] [facility] Start: 1945 Sex Assigned At Female [facility] Goals Date Patient Goal Desired Activity /State [...] 9:40 AM EDTTelephone Encounter - Cary Goldman CMA - 12/21/2024 10:16 AM EDTTleti Lucas MD - 01/17/2024 1:00 PM EDT Note Date & Type Note Facility 03-23-2025 History of Present illness Narrative Skin Check Location: Patient requests a skin examination of the face and arms Dermatologic history: history of Actinic Keratosis, history of Basal Cell Carcinoma, history of Squamous Cell Carcinoma Last visit: 1 year ago Established patient Lesions: Location: Left spiritism Duration: 1 year Quality: denies pain, denies [...] or higher 2. SEBORRHEIC KERATOSIS, INFLAMED Left Catholic Tyndall and brown stuck on verrucous scaly papule [...] limited to risks of scarring, darker or assisted sales representative pigmentary changes, recurrence, incomplete removal and infection. [...] or tenderness Cryotherapy, skin lesion - Left Catholic 3. SOLAR PURPURA (2) Left Forearm - [...] Visit: 1 year documented in this encounter [facility] 02-25-2025 Note [facility] Cardiology Clinic Note Chief Complaint: Patient [...] gallops. RESPIRATORY: CTAB, (more content not included)... [facility] 02-15-2025 History of Present illness Narrative [...] said last GFR around 30 with her mate relief. Interim History: 03/2023 Follow-up visit on 03/12/2023 [...] she states GFR is 30, per her mate relief. Interim History: 08/24 Followup visit on 08/25/18 [...] reading of her . Lab done in [facility] BUN 28/creatinine 1.43, GFR 36, [...] MG capsule 1 capsule, Every 12 hours gpbqbwokwlyw-otsp-xpifwimw-folic acid (Centrum) chewable tablet 1 tablet, Daily [...] Basal cell carcinoma CAD (coronary artery disease) ([facility]) Chronic kidney disease, stage III (moderate) (HCC) ([facility]) Current use of insulin ([facility]) Diabetes ([facility]) Frozen shoulder GERD (gastroesophageal reflux disease) Gout 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[facility]) HLD (hyperlipidemia) ([facility]) HTN (hypertension) ([facility]) Hypoglycemia Hypothyroidism ([facility]) Obesity with body mass index (BMI) of 30.0 to 39.9 Squamous cell skin cancer Thyroid disease ([facility]) Type 2 diabetes mellitus with other diabetic kidney complication ([facility]) Vitamin D deficiency Past Surgical History: Procedure [...] hyperglycemia, with long-term 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 ([facility]) - POCT glucose manually resulted - POCT glycosylated hemoglobin (Hb A1C) docked device Vitamin D deficiency Microalbuminuria Hyperlipemia, mixed ([facility]) Primary hypertension ([facility]) Insulin long-term use ([facility] 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[facility]) Encounter for dietary consultation Chronic renal disease, stage IV ([facility]) Said her last GFR 27 Assessment & [...] months (around 06/18/2025). documented in this encounter [facility] 12-21-2024 Miscellaneous Notes Phoned pt and lm on to call office for any further refills. Letter mailed to pt. documented in this encounter [facility] 12-21-2024 Telephone encounter Note Phoned pt and lm on to call office for any further refills. Letter mailed to pt. [facility] 12-12-2024 Miscellaneous Notes Last OV 01/17/24 Mg 01/01/24 Mg pended; refill letter mailed documented in this encounter [facility] 12-12-2024 Miscellaneous Notes Last OV 01/17/24 Lipid profile 07/08/23 Lipid panel pended; refill letter mailed documented in this encounter [facility] 12-12-2024 Telephone encounter Note Last OV 01/17/24 Mg 01/01/24 Mg pended; refill letter mailed [facility] 12-12-2024 Telephone encounter Note Last OV 01/17/24 Lipid profile 07/08/23 Lipid panel pended; refill letter mailed [facility] 11-27-2024 Note SUBJECTIVE Reason for Visit: [...] for a follow-up after being discharged from [facility] in February 2024. She was admitted [...] Diagnosis Acquired hypothyroidism Anemia Arthritis Atherosclerosis of [place] coronary artery of [place] heart without angina pectoris Combined forms of [...] 0.1 mg, o (more content not included)... [facility] 11-27-2024 Note Patient here for 6 m o follow up CAD, hypertension, MR, and diastolic dysfunction. Had echo in Jun 2024. She presented to [facility] ED last week with concerns of elevated BP. She takes clonidine PRN for elevated SBP > 200. Denies chest pain and SOB. Does feel palpitations. She wonders if the clonidine patches would help her. Review of Systems Cardiovascular: Positive for irregular heartbeat and palpitations. Musculoskeletal: Positive for myalgias. All other systems reviewed and are negative. [facility] 11-16-2024 History of Present illness Narrative [...] said last GFR around 30 with her mate relief. Interim History: 03/2023 Follow-up visit on 03/12/2023 [...] if it is above 150 use between 10-, but she did not check her blood [...] she states GFR is 30, per her mate relief. Interim History: 08/24 Followup visit on 08/25/18 [...] reading of her . Lab done in [facility] BUN 28/creatinine 1.43, GFR 36, [...] MG capsule 1 capsule, Every 12 hours tgtnwplunxnm-oapa-ofhxgxqs-folic acid (Centrum) chewable tablet 1 tablet, Daily [...] 39.9 Squamous cell skin cancer Thyroid disease ([facility]) Type 2 diabetes mellitus with other diabetic kidney complication ([facility]) Vitamin D deficiency Past Surgical History: Procedure [...] hyperglycemia, with long-term 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 ([facility]) - POCT glucose manually resulted - POCT [...] months (around 03/16/2025). documented in this encounter [facility] 09-06-2024 History of Present illness Narrative Images [...] if problems arise. documented in this encounter [facility] 09-05-2024 Miscellaneous Notes [facility] 01/17/24 [facility] 01/01/24 documented in this encounter [facility] 09-05-2024 Telephone encounter Note [facility] 01/17/24 [facility] 01/01/24 [facility] 07-13-2024 History of Present illness Narrative [...] said last GFR around 30 with her mate relief. Interim History: 03/2023 Follow-up visit on 03/12/2023 [...] she states GFR is 30, per her mate relief. Interim History: 08/24 Followup visit on 08/25/18 [...] reading of her . Lab done in [facility] BUN 28/creatinine 1.43, GFR 36, [...] MG capsule 1 capsule, Every 12 hours ogpudkzwxskb-zned-pgrtwwsg-folic acid (Centrum) chewable tablet 1 tablet, Oral, [...] Basal cell carcinoma CAD (coronary artery disease) ([facility]) Chronic kidney disease, stage III (moderate) (HCC) ([facility]) Current use of insulin ([facility] Diabetes ([facility]) Frozen shoulder GERD (gastroesophageal reflux disease) Gout 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[facility]) HLD (hyperlipidemia) ([facility]) HTN (hypertension) ([facility]) Hypoglycemia Hypothyroidism ([facility]) Obesity with body mass index (BMI) of 30.0 to 39.9 Squamous cell skin cancer Thyroid disease ([facility]) Type 2 diabetes mellitus with other diabetic kidney complication ([facility]) Vitamin D deficiency Past Surgical History: Procedure [...] hyperglycemia, with long-term 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 ([facility]) - POCT glucose manually resulted We will continue long-acting 30 units does not remember the name, short-acting 07/18/15 according to meal size Vitamin D deficiency Microalbuminuria Hyperlipemia, mixed ([facility]) Primary hypertension ([facility]) Insulin long-term use ([facility]) 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[facility]) Continue levothyroxine 150 and Cytomel 5 Encounter for dietary consultation Chronic renal disease, stage IV ([facility]) Follow up in about 4 months (around 11/13/2024). documented in this encounter [facility] 06-25-2024 History of Present illness Narrative [...] the callous site. documented in this encounter [facility] 06-04-2024 History of Present illness Narrative Follow up Diagnosis: Rash unspecified Location: hands Procedure performed: Punch biopsy Status: not as painful Date of procedure: 05/25/2024 Current treatment: Betamethasone Dipro 0.05% cream, here for biopsy results Suture Removal Patient here for suture removal: No complaints of redness, drainage or swelling at site, compliant with wound care. Location: Right [place] Procedure Performed: Punch biopsy Date of Procedure: 05/25/2024 Medications: Betamethasone All pertinent medical history, medications, and allergies were reviewed. General Exam: alert , oriented to person, place, and time , normal affect, well appearing Unaccompanied A focused exam completed based on patient reported problems, see below: 1. Granuloma annulare Left Hand - Anterior, Right Hand - Anterior Tyndall indurated annular plaques. Flaring today, but improved [...] any new/changing lesions documented in this encounter [facility] 05-25-2024 History of Present illness Narrative Images [...] and other nonspecific skin eruption Right [place] T[place]dall plaques Biopsy today, see procedure note. Start Betamethasone cream bid when flared, hold when clear. Lesion biopsy - Right [place] Type of biopsy: punch Informed consent: discussed [...] pending biopsy results documented in this encounter [facility] 05-11-2024 Note [facility] Cardiology Clinic Note Chief Complaint: Patient here for follow up [facility] discharge back in February 2024. She [...] ventricular gram/pressure Indications (more content not included)... [facility] 03-18-2024 Miscellaneous Notes Asad 01/17/24 Mg 07/08/23 -per 07/09/23 refill encounter Pt needs mg, orders in place. documented in this encounter [facility] 03-18-2024 Telephone encounter Note Asad 01/17/24 Mg 07/08/23 -per 07/09/23 refill encounter Pt needs mg, orders in place. [facility] 01-17-2024 History of Present illness Narrative Kylah Robin Date of visit: 01/17/2024 Date of : 1945 Age: 78 y.o. Patient Active Problem List Diagnosis Diabetes mellitus ([facility]) Hypertensive urgency Arthritis Dyspnea Other forms of angina pectoris ([facility]) Unstable angina ([facility]) Obesity (BMI 30-39.9) H/O four vessel coronary artery bypass graft Paroxysmal atrial fibrillation ([facility]) Atherosclerosis of [place] coronary artery of [place] heart without angina pectoris Obesity (BMI 30-39.9) Essential hypertension Other hyperlipidemia Class 1 obesity in adult Stage 4 chronic kidney disease ([facility]) 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 ([facility]) Allergies Allergen Reactions Amlodipine Rash [...] Chief Complaint Patient presents with Hospital Follow-up [facility] HTN AND 1 MONTH Hypertension Atrial Fibrillation Shortness of Breath History of Present Illness Kylah is here for follow-up. She was recently hospitalized at [place] for poorly controlled blood pressure. Her blood [...] pain Chronic kidney disease COVID-19 Diabetes mellitus ([facility]) Dyspnea Edema GERD (gastroesophageal reflux disease) Gout Hyperlipidemia Hypertensive urgency Hypothyroidism Lower back pain Mitral regurgitation Osteopenia Ventricular hypertrophy No data recorded No data recorded No data recorded Past Surgical History: Procedure Laterality Date CARDIAC CATHETERIZATION CATARACT EXTRACTION, BILATERAL CHOLECYSTECTOMY COLONOSCOPY Coronary angiogram and left ventricular gram/pressure N/A 12/28/2020 Performed by Kassie Nicole MD at [facility] CARDIAC CATH LABS CORONARY ARTERY BYPASS GRAFT X 4 with OCASIO and SVG x3 / EVH LEFT upper and lower AND RIGHT upper LEG / LUCAS N/A 12/29/2020 Performed by Herrera De Paz MD at [facility] FIRST TRIMESTER / TX INCOMPLETE [...] min Stress: No Stress Concern Present (12/28/2020) [employer] - Occupational Stress Questionnaire Feeling of Stress : Not at all Social Connections: Moderately Integrated (12/28/2020) Social Connection and Isolation Panel [NHANES] Frequency of Communication with Friends and Family: More than three times a week Frequency of Social Gatherings with Friends and Family: More than three times a week Attends Anabaptism Services: More than 4 times per year [...] tablet Reorder IMPRESSIONS/PLAN 1. Paroxysmal atrial fibrillation ([facility]) - POCT EKG - carvediloL (COREG) 25 mg tablet; Take 2 tablets (50 mg total) by mouth in the morning and 2 tablets (50 mg total) before bedtime. Dispense: 180 tablet; Refill: 3 2. Stage 4 chronic kidney disease ([facility]) - Basic Metabolic Panel; Future 3. 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 ([facility]) 4. Other forms of angina pectoris ([facility]) 5. Essential hypertension - Basic Metabolic Panel; Future 6. Atherosclerosis of [place] coronary artery of [place] heart without angina pectoris 7. H/O four [...] BNP. 2. Atherosclerosis of coronary arteries of [place] heart without angina pectoris. Patient has had [...] RUBI MD Referring Physician: Dhruv Rubi MD [facility] [place] [address] documented in this encounter [facility] 01-16-2024 Miscellaneous Notes Called patient to remind them to bring their most current copy of their medication list with them to their appt. Patient verbalizes understanding. documented in this encounter [facility] 01-16-2024 Telephone encounter Note Called patient to remind them to bring their most current copy of their medication list with them to their appt. Patient verbalizes understanding. [facility] 11-18-2023 Evaluation note Encounter Date Diagnosis [...] potassium improved with dietary restriction and Lasix. [facility] Other 01-29-2024 Evaluation note* Encounter Date Diagnosis Assessment Notes Treatment Notes Treatment Clinical Notes Oct, Anemia of renal disease (ICD-10 - D63.1) Oct, CKD (chronic kidney disease) stage 4, GFR 15-29 ml/min (ICD-10 - N18.4) [facility] Other 01-09-2024 Evaluation note* Encounter Date Diagnosis [...] potassium improved with dietary restriction and Lasix. [facility] Other 12-04-2023 Evaluation note* Encounter Date Diagnosis [...] 4, GFR 15-29 ml/min (ICD-10 - N18.4) [facility] Other 11-21-2023 Evaluation note* Encounter Date Diagnosis Assessment Notes Treatment Notes Treatment Clinical Notes Aug, Anemia of renal disease (ICD-10 - D63.1) Aug, CKD (chronic kidney disease) stage 4, GFR 15-29 ml/min (ICD-10 - N18.4) [facility] Other 11-09-2023 Evaluation note* Encounter Date Diagnosis [...] of kidney mass hydronephrosis or kidney stones. [facility] Other 10-26-2023 Evaluation note* Encounter Date Diagnosis [...] potassium improved with dietary restriction and Lasix. [facility] Other 09-18-2023 Evaluation note* Encounter Date Diagnosis [...] potassium improved with dietary restriction and Lasix. [facility] Other 08-31-2023 Evaluation note* Encounter Date Diagnosis [...] potassium improved with dietary restriction and Lasix. [facility] Other 07-25-2023 Evaluation note* Encounter Date Diagnosis [...] to normal with dietary restriction and Lasix. [facility] Other 07-01-2023 Evaluation note* Encounter Date Diagnosis Assessment Notes Treatment Notes Treatment Clinical Notes Apr, CKD (chronic kidney disease) stage 4, GFR 15-29 ml/min (ICD-10 - N18.4) Apr, Anemia of renal disease (ICD-10 - D63.1) [facility] Other 06-27-2023 Evaluation note* Encounter Date Diagnosis [...] to normal with dietary restriction and Lasix. [facility] Other 06-01-2023 Evaluation note* Encounter Date Diagnosis [...] potassium diet and provide information about it. [facility] Other 03-16-2023 Evaluation note* Encounter Date Diagnosis [...] to Continue Vit D 5000 units daily [facility] Other 01-30-2023 Evaluation note* Encounter Date Diagnosis [...] to Continue Vit D 5000 units daily [facility] Other 12-22-2022 Evaluation note* Encounter Date Diagnosis [...] to Continue Vit D 5000 units daily [facility] Other 11-16-2022 Evaluation note* Encounter Date Diagnosis [...] to Continue Vit D 5000 units daily [facility] Other 08-04-2022 Evaluation note* Encounter Date Diagnosis Assessment Notes Treatment Notes Treatment Clinical Notes May, Hypertensive chronic kidney disease with stage 1 through stage 4 chronic kidney disease, or unspecified chronic kidney disease (ICD-10 - I12.9) [facility] Other 08-02-2022 Evaluation note* Encounter Date Diagnosis [...] to Continue Vit D 5000 units daily [facility] Other 07-19-2022 Evaluation note* Encounter Date Diagnosis Assessment Notes Treatment Notes Treatment Clinical Notes Apr, Hypertensive chronic kidney disease with stage 1 through stage 4 chronic kidney disease, or unspecified chronic kidney disease (ICD-10 - I12.9) [facility] Other 04-14-2022 Evaluation note* Encounter Date Diagnosis [...] to take Vit D 1000 units daily [facility] Other Evaluation noteNo InformationNort Zul[employer] Other Evaluation note* Diagnosis Type 2 diabetes mellitus with hyperglycemia, with long-term 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 ([facility])- Primary Vitamin D deficiency Microalbuminuria Proteinuria Hyperlipemia, mixed ([facility]) Mixed hyperlipidemia Primary hypertension ([facility]) Unspecified essential hypertension Insulin long-term use ([facility]) Encounter for long-term (current) use of insulin 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[facility]) Chronic lymphocytic thyroiditis Encounter for dietary consultation Chronic renal disease, stage IV ([facility]) Chronic kidney disease, Stage IV (severe) documented in this encounter [facility] HealthcareEvaluation note* Diagnosis Rash and other nonspecific skin eruption- Primary documented in this encounter [facility] HealthcareEvaluation note* Diagnosis Granuloma annulare- Primary Other specified erythematous condition documented in this encounter [facility] HealthcareEvaluation note* Diagnosis Onychomycosis- Primary Dermatophytosis of nail Pain in both feet Corns and callosities Type 2 diabetes mellitus without complication, with long-term 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 ([facility]) documented in this encounter [facility] HealthcareEvaluation note* Diagnosis Onychomycosis- Primary Dermatophytosis of nail Pain in both feet Corns and callosities Type 2 diabetes mellitus without complication, with long-term 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 ([facility]) documented in this encounter [facility] HealthcareEvaluation note* Diagnosis Type 2 diabetes mellitus with hyperglycemia, with long-term 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 ([facility])- Primary Vitamin D deficiency Microalbuminuria Proteinuria Hyperlipemia, mixed ([facility]) Mixed hyperlipidemia Primary hypertension ([facility]) Unspecified essential hypertension Insulin long-term use ([facility]) Encounter for long-term (current) use of insulin 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[facility]) Chronic lymphocytic thyroiditis Encounter for dietary consultation Chronic renal disease, stage IV ([facility]) Chronic kidney disease, Stage IV (severe) documented in this encounter [facility] HealthcareEvaluation note* Diagnosis Atherosclerosis of [place] coronary artery of [place] heart without angina 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 Hypertensive urgency Shortness of breath Paroxysmal atrial fibrillation ([facility]) Atrial fibrillation Localized edema Edema documented in this encounter [facility] SystemEvaluation note* Diagnosis Paroxysmal atrial fibrillation ([facility])- Primary Atrial fibrillation Stage 4 chronic kidney disease ([facility]) 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 ([facility]) Other forms of angina pectoris ([facility]) Essential hypertension Unspecified essential hypertension Atherosclerosis of [place] coronary artery of [place] heart without angina 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 Hypertensive urgency Shortness of breath Localized edema Edema documented in this encounter [facility] System[facility] note* Diagnosis Medication management- Primary documented in this encounter [facility] System[facility] note* Diagnosis Medication management- Primary Atherosclerosis of [place] coronary artery of [place] heart without angina 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 Hypertensive urgency Shortness of breath Paroxysmal atrial fibrillation ([facility]) Atrial fibrillation Localized edema Edema [facility]* Diagnosis Onset Date Resolution Status [...] kidney disease acute January 14, 2025 8:59am [facility] Work Phone: Evaluation note* Diagnosis Type 2 diabetes mellitus with hyperglycemia, with long-term 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 ([facility])- Primary Vitamin D deficiency Microalbuminuria Proteinuria Hyperlipemia, mixed ([facility]) Mixed hyperlipidemia Primary hypertension ([facility]) Unspecified essential hypertension Insulin long-term use ([facility]) Encounter for long-term (current) use of insulin 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[facility]) Chronic lymphocytic thyroiditis Encounter for dietary consultation Chronic renal disease, stage IV ([facility]) Chronic kidney disease, Stage IV (severe) documented in this encounter [facility] HealthcareEvaluation note* Diagnosis Hyperlipidemia, unspecified hyperlipidemia type- Primary Atherosclerosis of [place] coronary artery of [place] heart without angina 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 Hypertensive urgency Shortness of breath Paroxysmal atrial fibrillation ([facility]) Atrial fibrillation Localized edema Edema documented in this encounter [facility] SystemEvaluation note* Diagnosis Seborrheic keratosis- Primary Seborrheic keratosis, inflamed Solar purpura Lentigines documented in this encounter [facility] HealthcareEvaluation noteNo assessment information [facility] Work Phone: History general Narrative - Reported* Type Description [...] History SEE ABOVE Hospitalization History COVID 09/2020 [facility] Other history general Narrative - Reported* Type [...] History SEE ABOVE Hospitalization History COVID 09/2020 [facility] Other history general Narrative - Reported* Type [...] History SEE ABOVE Hospitalization History COVID 09/2020 [facility] Other History general Narrative - ReportedNort Zulahoo Other Hiscfvv general Narrative - Reported* Type Description Date [...] History SEE ABOVE Hospitalization History COVID 09/2020 [facility] Other InstructionsNot on filedocumented in this encounter [facility] on filedocumented in this encounter [facility] on filedocumented in this encounter [facility]Not on filedocumented in this encounter [facility]InstructionsNot on filedocumented in this encounter [facility] SystemInstructionsNot on filedocumented in this encounter [facility] SystemReason for referral (narrative)No reason for referral information [facility] Work Phone: Summary Purpose Family History No Family History [...] hronic kidney disease January 14, 2025 8:59am Chief Complaint Admit Date Unknown April 21, 2025 10:1 0pm Additional Source Comments INFORMATION SOURCE (unrecogn ized section and content) DATE CREATED AUTHOR 04/02/2018 [facility] DATE CREATED AUTHOR AUTHOR'S ORGANIZ ATION 01/27/[address] [facility] DATE CREATED AUTHOR AUTHOR'S ORGANIZ ATION 01/18/2024 [facility] DATE CREATED AUTHOR AUTHOR'S ORGANIZ ATION 03/03/2025 [facility] DATE CREATED AUTHOR AUTHOR'S ORGANIZ ATION 03/26/2025 [facility] DATE CREATED AUTHOR AUTHOR'S ORGANIZ ATION 04/27/2025 [facility] REASON FOR VISIT (unrecogniz ed section and content) Reason Comments Diabetes Mellitus Follow-up Reason Comments Skin Problem Reason Comments Suture / Staple Removal Reason Comments Diabetes Thyroid Problem Follow-up Reason Comments Med Refill Reason Comments Hospital Follow-up [facility] HTN AND 1 MONTH Hypertension Atrial Fibrillation Shortness of Breath Reason Comments Thyroid Problem Diabetes Mellitus Care Teams (unrecognized sec tion and content) Team Status: Active Member Role Status Dates Dhruv Rubi MD Primary Care Provider Active Team Status: Inactive Member Role Status Dates Dhruv Rubi MD Primary Care Provider Active Start: April 21, 2025 End: April 21, 2025 Dmitriy Lynne MD Attending Provider Active St art: April 21, 2025 End: April 21, 2025 Business Law Instructor Relationship Specialty Start Date End Date Dhruv Rubi MD [address] [facility] [place] [address] PCP - General Family Medicine 10/22/23 Business Law Instructor Relationship Specialty Start Date End Date Dhruv Rubi MD [address] [facility] [place] [address] PCP - General Family Medicine 10/22/23 Business Law Instructor Relationship Specialty Start Date End Date Dhruv Rubi MD [address] [facility] [place] [address] PCP - General Family Medicine 10/22/23 Business Law Instructor Relationship Specialty Start Date End Date hDruv Rubi MD [address] [facility] [place] [address] PCP - General Family Medicine 10/22/23 Business Law Instructor Relationship Specialty Start Date End Date Dhruv Rubi MD [address] [facility] [place] [address] PCP - General Family Medicine 10/22/23 Business Law Instructor Relationship Specialty Start Date End Date Dhruv Rubi MD [address] [facility] [place] [address] PCP - General Family Medicine 10/22/23 Business Law Instructor Relationship Specialty Start Date End Date Dhruv Rubi MD [address] [facility] [place] [address] PCP - General Family Medicine 10/22/23 Business Law Instructor Relationship Specialty Start Date End Date Dhruv Rubi MD [address] [phone] PCP - General Family Medicine 10/22/23 Business Law Instructor Relationship Specialty Start Date End Date Dhruv Rubi MD [address] [place] [address] PCP - General Family Medicine 10/22/23 Business Law Instructor Relationship Specialty Start Date End Date Dhruv Rubi MD [address] [place] [address] PCP - General Family Medicine 10/20/20 Business Law Instructor Relationship Specialty [place] [address] [place], [place] [phone] PCP - General Family Medicine 10/20/20 Business Law Instructor Relationship Specialty Start Date End Date Dhruv Rubi MD [address] [phone] PCP - General Family Medicine 10/20/20 Business Law Instructor Relationship Specialty Start Date End Date Dhruv Rubi MD [address] [place] [address] PCP - General Family Medicine 10/20/20 Business Law Instructor Relationship Specialty Start Date End Date Dhruv Rubi MD PCP - General Family Medicine 10/20/20 Business Law Instructor Relationship Specialty Start Date End Date Dhruv Rubi MD PCP - General Family Medicine 10/20/20 Business Law Instructor Relationship Specialty Start Date End Date Dhruv Rubi MD PCP - General Family Medicine 10/20/20 Business Law Instructor Relationship Specialty Start Date End Date Dhruv Rubi MD PCP - General Family Medicine 10/20/20 Team Status: Active Member Role Status Dates Dhruv Rubi MD Primary Care Provider Active Start: January 05, 2025 Ron Martinez MD Attending Provider Active Start : January 05, 2025 Team Status: Inactive Member Role Status Dates Dhruv Rubi MD Primary Care Provider Active Start: January 14, 2025 End: January 14, 2025 Ron Martinez MD Attending Provider Active Start : January 14, 2025 End: January 14, 2025 Business Law Instructor Relationship Specialty Start Date End Date Dhruv Rubi MD PCP - General Family Medicine 10/22/23 Business Law Instructor Relationship Specialty Start Date End Date Dhruv Rubi MD PCP - General Family Medicine 10/22/23 Business Law Instructor Relationship Specialty Start Date End Date Dhruv Rubi MD PCP - General Family Medicine 10/20/20 Business Law Instructor Relationship Specialty Start Date End Date Dhruv Rubi MD PCP - General Family Medicine 10/22/23 Business Law Instructor Relationship Specialty Start Date End Date Dhruv [...] BE BASED ON THE PRIMARY CLINICAL RECORDS. [facility] [email or web address] [facility]. provides no warranty or guarantee of the accuracy or completeness of information in this document.
--- NOTE | 2025-04-30 19:37 | ED.GENADUL1 ---
HPI HPI - General Adult General Chief complaint: Fever Stated complaint: FEVER, FLU LIKE SYMPTOMS Time Seen by Provider: 04/30/25 19:29 Source: patient Mode of arrival: walk-in History of Present Illness HPI narrative: seen by orthopedics yesterday for an injection right knee. [place] well yesterday. Today describes fever, body aches. No cough. No abdominal pain. Not short of breath. Still on Keflex from last week for UTI Related Data Home Medications ?Medication ?Instructions ?Recorded ?Confirmed atorvastatin 80 mg tablet 80 mg PO .QHS 03/17/23 09/20/24 insulin aspart U-100 100 unit/mL 12 unit subcut DAILY 03/17/23 09/20/24 (3 mL) subcutaneous pen (Novolog FlexPen U-100 Insulin aspart) magnesium oxide 400 mg (241.3 mg 400 mg PO TID 03/17/23 09/20/24 magnesium) tablet pantoprazole 40 mg tablet,delayed 40 mg PO .QD 03/17/23 04/30/25 release ferrous sulfate 325 mg (65 mg 325 mg PO BID 12/31/23 09/20/24 iron) tablet allopurinol 300 mg tablet 300 mg PO DAILY 04/30/25 04/30/25 furosemide 40 mg tablet 40 mg PO DAILY 04/30/25 04/30/25 hydralazine 50 mg tablet 50 mg PO TID 04/30/25 04/30/25 levothyroxine 100 mcg tablet 100 mcg PO QAM 04/30/25 04/30/25 Previous Rx's ?Medication ?Instructions ?Recorded insulin detemir U-100 100 unit/mL 26 unit (0.26 mL) subcut BID #15 mL 01/24/24 (3 mL) subcutaneous pen (Levemir FlexPen) aspirin 81 mg chewable tablet 81 mg PO QD #30 tabs 03/05/24 carvedilol 25 mg tablet 25 mg PO BIDWM@0700,1900 #60 tabs 03/05/24 isosorbide mononitrate 120 mg 120 mg PO QAM take after breakfast 03/05/24 tablet,extended release 24 hr #30 tabs levothyroxine 100 mcg capsule 100 mcg PO DAILY #30 caps 03/05/24 liothyronine 5 mcg tablet 5 mcg PO ACB #60 tabs 03/05/24 Allergies Allergy/AdvReac Type Severity Reaction Status Date / Time amlodipine (From Norvasc) Allergy Mild itchy Verified 04/21/25 21:20 Iodinated Contrast Media Allergy Unknown Unconscious Verified 04/21/25 21:20 amoxicillin (From Augmentin) Allergy Rash Verified 04/21/25 21:20 clavulanic acid (From Allergy Rash Verified 04/21/25 21:20 Augmentin) sulfamethoxazole (From Allergy Rash Verified 04/21/25 21:20 Bactrim) trimethoprim (From Bactrim) Allergy Rash Verified 04/21/25 21:20 Opioid HPI Opioid Management Most Recent Opioid Data: Last Pain Scale 0 03/04/24, 06:00 Last ORT Total Score 0 03/01/24, 23:16 Last ORT Risk Category Low Risk 03/01/24, 23:16 Review of Systems ROS Status of ROS 10 or more systems reviewed and unremarkable except as noted in history and below [facility] Medical History (Updated 04/30/25 @ 22:25 by Dmitriy Lynne MD) Chest pain ?R07.9 - Chest pain, unspecified (ICD-10) Hypertensive urgency ?I16.0 - Hypertensive urgency (ICD-10) Iron deficiency anemia, unspecified ?D50.9 - Iron deficiency anemia, unspecified (ICD-10) Hypothyroidism (acquired) ?E03.9 - Hypothyroidism, unspecified (ICD-10) (HFpEF) heart failure with preserved ejection fraction ?I50.30 - Unspecified diastolic (congestive) heart failure (ICD-10) Hypertensive emergency ?I16.1 - Hypertensive emergency (ICD-10) Chronic kidney disease ?N18.9 - Chronic kidney disease, unspecified (ICD-10) Hypertensive urgency ?I16.0 - Hypertensive urgency (ICD-10) Chest pain ?R07.9 - Chest pain, unspecified (ICD-10) Hypertensive urgency ?I16.0 - Hypertensive urgency (ICD-10) Raynaud disease ?I73.00 - Raynaud's syndrome without gangrene (ICD-10) Basal cell carcinoma of skin of nose ?C44.311 - Basal cell carcinoma of skin of nose (ICD-10) Elevated cholesterol ?E78.00 - Pure hypercholesterolemia, unspecified (ICD-10) Chronic kidney disease ?N18.9 - Chronic kidney disease, unspecified (ICD-10) HTN (hypertension) ?I10 - Essential (primary) hypertension (ICD-10) Diabetes ?E11.9 - Type 2 diabetes mellitus without complications (ICD-10) CAD (coronary artery disease) ?I25.10 - Atherosclerotic heart disease of [place] coronary artery without angina pectoris (ICD-10) Surgical History S/P CABG x 1 ?Z95.1 - Presence of aortocoronary bypass graft (ICD-10) H/O shoulder surgery ?Z98.890 - Other specified postprocedural states (ICD-10) History of cholecystectomy ?Z90.49 - Acquired absence of other specified parts of digestive tract (ICD-10) History of hysterectomy ?Z90.710 - Acquired absence of both cervix and uterus (ICD-10) Family History Sister Family history of myocardial infarction Family history of hypertension Brother Family history of myocardial infarction Family history of diabetes mellitus Brother Family history of hypertension Father Family history of cancer Social History Smoking status: Former smoker Highest level of school completed/degree received: 12th grade, no diploma Little interest or pleasure in doing things: not at all Feeling down, depressed, or hopeless: not at all Exam Constitutional Vital Signs, click to edit/add: Last Vital Signs Temp 98.6 F 04/30/25 20:39 Pulse 74 04/30/25 22:07 Resp 20 04/30/25 22:07 BP 167/69 H 04/30/25 22:07 Pulse Ox 98 04/30/25 22:07 O2 Del Method Room Air 04/30/25 22:07 Common normals: no apparent distress, average body habitus, oriented x3, no limitations, healthy appearing, alert and well nourished HENWI Common normals: normocephalic and head/scalp atraumatic Eye Common normals: PERRL and EOMs intact bilaterally Respiratory Common normals: normal respiratory effort, no retractions, no use of accessory muscles and clear to auscultation bilaterally Cardio Common normals: regular rate, regular rhythm, S1 normal heart sound and S2 normal heart sound GI Common normals: Normal to inspection, nondistended, normoactive bowel sounds present, soft to palpation and non-tender Back & Pelvis Common normals: no CVA tenderness Extremity Common normals: normal to inspection Neuro Common normals: oriented x3, CN's II-XII intact bilaterally, moves all extremities and no focal motor deficits Psych Appearance: grossly normal Course Vital Signs Vital signs: Vital Signs Temperature 98.1 F 04/30/25 19:21 Pulse Rate 85 04/30/25 19:21 Respiratory Rate 18 04/30/25 19:21 Blood Pressure 169/115 H 04/30/25 19:21 Pulse Oximetry 97 04/30/25 19:21 Oxygen Delivery Method Room Air 04/30/25 19:21 Temperature 98.6 F 04/30/25 20:39 Pulse Rate 74 04/30/25 22:07 Respiratory Rate 20 04/30/25 22:07 Blood Pressure 167/69 H 04/30/25 22:07 Pulse Oximetry 98 04/30/25 22:07 Oxygen Delivery Method Room Air 04/30/25 22:07 Medical Decision Making MDM Narrative Medical decision making narrative: patient ill one day with gen. aches, fever. No cough or dyspnea. On Keflex for UTI. Exam neg. labs with elevated WBC and mild elevation of lactic acid. Patient has CKD. UA no longe with evidence of infection but does have findings c/w dehydration. Cxray clear. COVID19 positive. Patient hydrated and advised to follow up with her doctor next week. No distress on exam and afebrile encouraged to drink plenty of fluids Lab Data Labs: Lab Results 04/30/25 04/30/25 04/30/25 Range/Units 19:55 20:23 20:37 WBC 16.3 H (4.0-11.0) 10^3/uL RBC 3.49 L (4.20-5.40) 10^6/uL Hgb 10.9 L (12.0-16.0) g/dL Hct 31.9 L (36.0-48.0) % MCV 91.4 (81.0-99.0) fL MCH 31.2 (26.7-34.0) pg MCHC 34.2 (29.9-35.2) g/dL RDW 15.6 H (11.0-15.0) % Plt Count 212 (150-450) 10^3/uL MPV 9.0 L (9.5-13.5) fL Neut % (Auto) 90.1 H (43.0-75.0) % Lymph % (Auto) 5.3 L (20.5-60.0) % Jack % (Auto) 3.6 (1.7-12.0) % Eos % (Auto) 0.3 L (0.9-7.0) % Baso % (Auto) 0.2 (0.2-2.0) % Neut # (Auto) 14.7 H (1.4-6.5) 10^3/uL Lymph # (Auto) 0.9 L (1.2-3.8) 10^3/uL Jack # (Auto) 0.6 (0.3-0.8) 10^3/uL Eos # (Auto) 0.1 (0.0-0.7) 10^3/uL Baso # (Auto) 0.0 (0.0-0.1) 10^3/uL Abs Immat Gran (auto) 0.08 H (0.00-0.03) 10^3/uL Imm/Tot Granulo (auto) 0.5 (0.0-0.5) % Sodium 133 L (136-145) mmol/L Potassium 4.8 (3.5-5.1) mmol/L Chloride 96 L (98-107) mmol/L Carbon Dioxide 29.0 (21.0-32.0) mmol/L Anion Gap 12.8 BUN 40.0 H (7.0-18.0) mg/dL Creatinine 2.59 H (0.55-1.02) mg/dL Est GFR ( Amer) 22 L (>=60 mL/min/1.73m^2) Est GFR (Non-Af Amer) 18 L (>=60 mL/min/1.73m^2) BUN/Creatinine Ratio 15.4 Glucose 194 H (74-106) mg/dL Lactate 2.7 H* (0.4-2.0) mmol/L Calcium 10.1 (8.5-10.1) mg/dL Total Bilirubin 0.9 (0.2-1.0) mg/dL AST 40 H (15-37) U/L ALT 45 (14-59) U/L Alkaline Phosphatase 89 (46-116) U/L Total Protein 8.1 (6.4-8.2) g/dL Albumin 3.4 (3.4-5.0) g/dL Globulin 4.7 g/dL Albumin/Globulin Ratio 0.7 Urine Color Lt. yellow (YELLOW) Urine Clarity Clear (CLEAR) Urine pH 6.0 (5.0-9.0) Ur Specific [place] 1.020 (1.005-1.025) Urine Protein >=300 A (NEG/TRACE) mg/dL Urine Glucose (UA) Negative (NEGATIVE) mg/dL Urine Ketones Negative (NEGATIVE) mg/dL Urine Occult Blood Trace-i (NEGATIVE) Urine Nitrite Negative (NEGATIVE) Urine Bilirubin Negative (NEGATIVE) Urine Urobilinogen 0.2 (0.2-1.0) EU/dL Ur Leukocyte Esterase Negative (NEGATIVE) Urine RBC 2-5 A (0-2) #/HPF Urine WBC 0-2 A (NONE SEEN) #/HPF Ur Squamous Epith Cells None seen (NONE/RARE) #/LPF Urine Crystals None seen (None Seen) #/HPF Urine Bacteria Trace A (NONE SEEN) #/HPF Urine Casts None seen (NONE SEEN) #/LPF Urine Mucus None seen (NONE SEEN) SARS-CoV-2 Ag (CV2AG) Positive A (NEGATIVE) POC Glucose 200 H (74-106) mg/dL Discharge Plan Discharge Chief Complaint: Fever Clinical Impression: COVID-19 Patient Disposition: Home, Self-Care Prescriptions / Home Meds: No Action carvedilol 25 mg Tablet 25 mg PO BIDWM@0700,1900 Qty: 60 0RF liothyronine 5 mcg Tablet 5 mcg PO ACB Qty: 60 0RF aspirin 81 mg Tablet,Chewable 81 mg PO QD Qty: 30 11RF levothyroxine 100 mcg capsule 100 mcg PO DAILY Qty: 30 11RF isosorbide mononitrate 120 mg tablet extended release 24 hr 120 mg PO QAM Qty: 30 11RF allopurinol 300 mg tablet 300 mg PO DAILY furosemide 40 mg tablet 40 mg PO DAILY hydralazine 50 mg tablet 50 mg PO TID levothyroxine 100 mcg tablet 100 mcg PO QAM atorvastatin 80 mg tablet 80 mg PO .QHS insulin aspart U-100 [Novolog FlexPen U-100 Insulin] 100 unit/mL (3 mL) insulin pen 12 unit SUBCUT DAILY Rx Instructions: 12 units am, 16units at lunch and 22 units in pm magnesium oxide 400 mg (241.3 mg magnesium) tablet 400 mg PO TID pantoprazole 40 mg tablet,delayed release (DR/EC) 40 mg PO .QD ferrous sulfate 325 mg (65 mg iron) tablet 325 mg PO BID Levemir FlexPen 100 unit/mL (3 mL) Insulin Pen 26 unit subcut BID Qty: 15 11RF Print Language: Lithuanian Instructions: COVID-19 (Coronavirus Disease 2019) (ED) Additional Instructions: drink plenty of fluids. Follow up with Dr rubi early next week Referrals: Merrick Rubi MD [Primary Care Provider, Family Practice] - 1 week
[2025-04-30 20:06] LABS: Hematocrit 31.9 % (36.0-48.0); Hemoglobin 10.9 g/dL (12.0-16.0); Immature Granulocytes Abs Auto 0.08 10^3/uL (0.00-0.03); Immature Granulocytes Pct Auto 0.5 % (0.0-0.5); Lymphocytes Absolute Auto 0.9 10^3/uL (1.2-3.8); Mean Corpuscular HGB Conc 34.2 g/dL (29.9-35.2); Mean Corpuscular Hemoglobin 31.2 pg (26.7-34.0); Mean Corpuscular Volume 91.4 fL (81.0-99.0); Platelet Count 212 10^3/uL (150-450); Red Blood Count 3.49 10^6/uL (4.20-5.40); White Blood Count 16.3 10^3/uL (4.0-11.0)
[2025-04-30 20:28] LABS: Alanine Aminotransferase 45 U/L (14-59); Albumin Globulin Ratio 0.7; Albumin Level 3.4 g/dL (3.4-5.0); Alkaline Phosphatase 89 U/L (46-116); Anion Gap 12.8; Aspartate Amino Transferase 40 U/L (15-37); Blood Urea Nitrogen 40.0 mg/dL (7.0-18.0); Calcium 10.1 mg/dL (8.5-10.1); Carbon Dioxide 29.0 mmol/L (21.0-32.0); Chloride 96 mmol/L (98-107); Estimated GFR (African America 22 (>=60 mL/min/1.73m^2); Estimated GFR (Non-African Ame 18 (>=60 mL/min/1.73m^2); Globulin 4.7 g/dL; Glucose 194 mg/dL (74-106); Potassium 4.8 mmol/L (3.5-5.1); Sodium 133 mmol/L (136-145); Total Protein 8.1 g/dL (6.4-8.2)
[2025-04-30 20:39] VITALS: BP 144/65; PULSE 80; TEMP 37; O2SAT 97
[2025-04-30 20:41] LABS: Lactate/Lactic Acid 2.7 mmol/L (0.4-2.0)
[2025-04-30 20:45] LABS: Glucose Urine UA NEGATIVE (NEGATIVE)
[2025-04-30 20:56] LABS: Cast Seen? NONE SEEN #/LPF (NONE SEEN); Crystals Seen? None Seen #/HPF (None Seen)
[2025-04-30] MEDS: 0.9 % SODIUM CHLORIDE 1,000 ML 999 ML IV (20:56)
[2025-04-30 20:59] LABS: SARS-CoV-2 Ag POSITIVE (NEGATIVE)
--- NOTE | 2025-04-30 21:37 | XR_ITS ---
[address] [address] Patient Name: KYLAH BERGER MRN: [id number] date: 1945 Sex: F Assigned Patient Location: ER Current Patient Location: ED.MAIN Accession/Order Number: [id number] Exam Date: 04/30/2025 22:00 Report Date: 04/30/2025 22:01 At the request of: HOANG FUNES MD Procedure: XR chest 1V Plain film chest Single view HISTORY: Dyspnea COMPARISON: 04/21/2025 FINDINGS: SUPPORT DEVICES: None POSTSURGICAL CHANGES: Sternotomy HEART: Within normal limits PULMONARY SANDIP: Within normal limits MEDIASTINUM: Unremarkable LUNGS AND PLEURA: No acute lung process, pleural effusion or pneumothorax identified. Similar mild interstitial changes BONY STRUCTURES: Intact ADDITIONAL FINDINGS None XR/XR chest 1V IMPRESSION: No acute process. Impression dictated by: Mariusz Hernandez M.D. 04/30/2025 10:01 PM Dictation Location: [facility] Electronically authenticated by: [id number] Y Date: 04/30/2025 22:01
[2025-04-30 22:07] VITALS: BP 167/69; PULSE 74; O2SAT 98
== END 2025-04-30 22:47 | disposition home or self-care (01) ==
PROVIDERS: Emergency Provider Internal Medicine; PCP Family Medicine
DX: U07.1 COVID-19 (principal); Z87.440 Personal history of urinary (tract) infections; Z90.49 Acquired absence of other specified parts of digestive tract; Z90.710 Acquired absence of both cervix and uterus; Z87.891 Personal history of nicotine dependence
CPT/HCPCS: 36415; 71045; 80053; 81001; 82948; 83605; 85025; 87811; 99285

== ENCOUNTER 2025-05-25 12:29 | Outpatient (REF) | payer MEDICARE, SELFPAY ==
--- OUTSIDE RECORDS SUMMARY | 2025-05-17 05:00 | XMS_ITS ---
Author Organization [facility] in [place] Address [address] [place] [address] Care Team Providers Care Manager Category Name Role Phone Jeff Rubi Primary Care Provider REASON FOR VISIT B12 Encounters Encounter Location Date Provider Diagnosis [facility] [address] [place] [address] 05/17/2025 Jeff Rubi Low vitamin B12 leve l E53.8 Assessments Encounter Date Diagnosis (ICD Code) Assessment Notes Treatment Notes Treatment Clinical Notes Section Notes 05/17/2025 Low vitamin B12 level (ICD-10 - E53.8) Plan Of Treatment No Information Medications Administered Medication Instructions Date of Administration Dosage Notes Cyanocobalamin 05/17/2025 1 mL Progress Notes * Garima ROBINeDOB:1945 (79 yo F)Acc No.[id number]:05/17/2025 Progress Note Patient: Mercedez MEAD Provider: [facility] Stefanie :1945 A ge:79 Y S ex:Female Date:05/17/2025 Address:[address] [place] [address] [place] [id number] Check In:08:45 AM ESTCheck O ut:09:01 AM EST Subjective: * Chief Complaints: * B 12 * HPI: G eneral: presents to the office for a B12 injection. * Active Problem List M17.12 Unilateral [...] pectoris Modified On:06/13/2023 Status:confirmed H26.9 Cataract Modified On:02/12/2023 Status:confirmed I34.0 [...] E53.8 Low vitamin B12 leve l Modified On:12/16/2023 Status:confirmed L03.90 Cellulitis Modified On:09/03/2023 Status:confirmed I77.9 [...] E11.9 Diabetes mellitus Modified On:02/25/2024 Status:confirmed Z79.4 skilled nursing current us e of insulin Modified On:02/25/2024 Status:confirmed E03.9 Acquired hypothyroid ism Modified On:02/25/2024 Status:confirmed I16.1 Hypertensive emergen cy Modified On:03/25/2024 Status:confirmed E83.42 Hypomagnesemia Modified On:03/25/2024 Status:confirmed I10 Hypertensive urgency Modified On:04/06/2024 Status:confirmed E11.9 DM2 (diabetes [facility], type 2) Modified On:04/06/2024 Status:confirmed I25.10 CAD [...] due to diabetes mellitus Modified On:11/18/2024 Status:confirmed M17.9 Osteoarthritis of kn ee Modified On:04/29/2025U Status:confirmed 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 L ow vitamin B12 level - E53.8 (Primary) Plan: * Treatment: * Therapeutic Injections: Cyanocobalamin : 1 mL (Route: Intramuscular) given by LAKSHMI Galarza on right deltoid (Low vitamin B12 level) * Procedure Codes: [id number] THERAP.INJ. OF MED. INTRAMUSCULAR OR [id number] VITAMIN B-12 < 1000 MCG * * Sign off status: Completed Visit Status: C HK (Check Out) true * Provider: Ian Rubi ([facility])MD Date: 05/17/2025 Generated for Petar alcala/Candie/eTransmitting on: 05/25/2025 12:40 PM EDT History and Physical Notes * HPI (History of Present Illness) Category Sub-Category Detail Notes Category Not es General presents to the office for a B12 injection
--- OUTSIDE RECORDS SUMMARY | 2025-05-24 04:16 | XMS_ITS ---
Author Organization [facility] in [place] Address [address] [place] [address] Care Team Providers Care Ski Technician Name Role Phone Jeff Rubi Primary Care Provider REASON FOR VISIT uti Medications Medication SIG (Take, Route, Frequency, Duration) Notes Start Date End Date Status Ciprofloxacin HCl 500 MG 1 tablet Orally every 12 hrs for 10 days 05/24/2025 Active Encounters Encounter Location Date Provider Diagnosis [facility] [address] [place] [address] 05/24/2025 Jeff Rubi Plan Of Treatment Medication Medication Name Sig Start Date Stop Date Notes Ciprofloxacin HCl 500 MG 1 tablet Orally every 12 hrs for 10 days 05/24/2025 Progress Notes * Nancy BERGEROB:1945 (79 yo F)Acc No.[id number]:05/24/2025 Patient: Landry MEADsie :1945 A ge:79 Y S ex:Female Address:[address] [place] [address] [address], [place] [address] * Refills Start Ciprofloxacin HCl Tablet, 500 MG, Orally, 20 Tablet, 1 tablet, every 12 hrs, 10 days * true * Date: Generated for Printi ng/Faxing/eTransmitting on: 0 05/25/2025 12:40 PM EDT
--- OUTSIDE RECORDS SUMMARY | 2025-05-25 07:30 | XMS_ITS ---
Author Organization [facility] in [place] Address [address] [place] [address] Care Team Providers Care Sodder Name Role Phone Jeff Rubi Primary Care Provider REASON FOR VISIT UTI Encounters Encounter Location Date Provider Diagnosis [facility] [address] [place] [address] 05/25/2025 Jeff Rubi Dysuria R30.0 Assessments Encounter Date Diagnosis (ICD Code) Assessment Notes Treatment Notes Treatment Clinical Notes Section Notes 05/25/2025 Dysuria (ICD-10 - R30.0) Plan Of Treatment Pending Test Test Name Order Date UA (URINALYSIS, COMPLETE) 05/25/2025 Urine Culture 05/25/2025 Progress Notes * Garima BERGERRamiroOB:1945 (79 yo F)Acc No.[id number]:05/25/2025 UNLOCKED PROGRESS NOTE Patient: Mercedez MEAD :1945 A ge:79 Y S ex:Female Address:[address] [place] [address] [address] , [place] [address] Subjective: * Chief Complaints: * U TI * Medical History: * Surgical History: * Hospitalization/Major Diagno stic Procedure: * Medications: Objective: * Vitals: * Physical Examination: Assessment: * Assessment: 1. D ysuria - R30.0 (Primary) Plan: * Treatment: * Procedure Codes: * * Date:
--- OUTSIDE RECORDS SUMMARY | 2025-05-25 12:40 | XMS_ITS | Encounter Summary ---
Author Organization [facility] Address [facility] [id number] [address] [place] [address] Care Team Providers Care Automotive Parts Clerk Name Role Phone Merrick Rubi MD Primary Care Provider [phone] Reason for Visit * Reason Onset Date Comments Status Post Cath 12/29/2020 Encounter Details Date Type Department Care Team (Late st Contact Info) Description 12/29/2020 Telephone [facility] [address] [place] [phone] Kassie Graham MD [address] [place], [place] [phone] Status Post Cath Social History Tobacco Use [...] How often do you attend chur or congregation services? More than 4 times per year 12/28/2020 Do you belong to any clubs o r organizations such as zoroastrianism groups, unions, fraternal or athletic groups, or [...] Answer Date Recorded Total Score 0 12/28/2020 [facility] Occupat ional Health - Occupational [...] Do you need help finding a [facility] career center and/or a training [...] list: Pt had cath w/ [facility] @ [facility] where pt is currently admitted. Will be [...] documented as of this encounter Care Teams Automotive Parts Clerk Relationship Specialty Start Date End Date Merrick Rubi MD PCP - General Family Medicine 10/20/20 documented as of this encounter
--- OUTSIDE RECORDS SUMMARY | 2025-05-25 12:40 | XMS_ITS | Encounter Summary ---
Author Organization [facility] Address [facility] [place] [id number] [address] [place] [address] Care Team Providers Care Product Test Specialist Name Role Phone Merrick Rubi MD Primary Care Provider [phone] Encounter Details Date Type Department Care Team (Late st Contact Info) Description 07/08/2023 Orders Only [facility] [address] [place] [phone] External, Scanning Provider Social History Tobacco Use [...] often do you attend chur ch or denominational services? More than 4 times per year 12/28/2020 Do you belong to any clubs o r organizations such as lutheran groups, unions, fraternal or athletic groups, or [...] Answer Date Recorded Total Score 0 12/28/2020 [facility] Occupat ional Health - Occupational Stress [...] Recorded Do you need help finding a [facility] career center and/or a [...] <enter goal here> General Yes Spoonmore, Dione, TECHNICAL WRITING LEAD/MGR Note: Evaluation of progress towards goal: return home with homecare and support from [facility], children and grandchildren documented as of this encounter Procedures Procedure Name Priority Date/Time Associated Diagnosis Comments MULTIPLE LABS Routine 07/08/2023 LIPID PROFILE Routine 07/08/2023 documented in this encounter Results * Multiple labs (07/08/2023) us Scanning Provider External [place] IMAGING Edite d Result - Final Performing Organization Address [facility] [address] [facility] Co de Phone Number MANUALLY TRANSCRIBED [...] - Final Performing Organization Address [facility] [address]/[facility] Co de Phone Number MANUALLY TRANSCRIBED RESULTS documented in this encounter Visit Diagnoses Not on filedocumented in this encounter Additional Health Concerns Assessment Noted Time PHQ-9 Depression Total Score: 0 12/29/19 21 3:16 PM EDT documented as of this encounter Care Teams Product Test Specialist Relationship Specialty Start Date End Date Merrick Rubi MD PCP - General Family Medicine 10/20/20 documented as of this encounter
--- OUTSIDE RECORDS SUMMARY | 2025-05-25 12:40 | XMS_ITS | Encounter Summary ---
Author Organization [facility] tem Address [facility] [id number] [address] [place] [address] Care Team Providers Care Parking Lot Manager Name Role Phone Merrick Rubi MD Primary Care Provider [phone] Reason for Visit * Reason Onset Date Comments Results 01/17/2021 Encounter Details Date Type Department Care Team (Late st Contact Info) Description 01/17/2021 Telephone [facility] [address] [place] [address] Linda Gonzalez, JUANPABLO Results Social [...] often do you attend chur ch or druze services? More than 4 times per year [...] Answer Date Recorded Total Score 0 12/28/2020 [facility] Occupat ional Health - [...] Recorded Do you need help finding a [facility] career center and/or a training program? [...] Patient-Stated? Author <enter goal here> General Yes Dinoe Mason LSW Note: Evaluation of progress towards goal: return home with homecare and support from [facility], children and grandchildren documented as of this encounter Results * (ABNORMAL) Basic Metabolic Panel (01/30/2021 8:27 AM EDT) Sodium 135 134 - 146 mmol/L 01/30/2021 2:48 PM EDT [facility] Potassium, Bld 4.2 3.5 - 5.0 mmol/L 01/30/2021 2:48 PM EDT [facility] Chloride 98 98 - 109 mmol/L 01/30/2021 2:48 PM EDT [facility] CO2 24 22 - 32 mmol/L 01/30/2021 2:48 PM EDT [facility] Anion gap 13 5 - 15 mmol/L 01/30/2021 2:48 PM EDT [facility] BUN 53(H) 5 - 27 mg/dL 01/30/2021 2:48 PM EDT [facility] Creatinine 1.90(H) 0.40 - 1.00 mg/dL 01/30/2021 2:48 PM EDT [facility] Comment:METHOD TRACEABLE TO IDMS STANDARD Glucose 222(H) 65 - 99 mg/dL 01/30/2021 2:48 PM EDT [facility] Calcium 9.7 8.5 - 10.5 mg/dL 01/30/2021 2:48 PM EDT [facility] GFR MDRD Non Af Amer 26(L) >59 ml/min/1.7 3sq.m 01/30/2021 2:48 PM EDT [facility] GFR MDRD Af Amer 31(L) >59 ml/min/1.7 3sq.m 01/30/2021 2:48 PM EDT [facility] Serum / Unknown 01/30/2021 8 :27 AM EDT 01/30/2021 8:28 AM EDT us Marie Garcia [facility] LAB BLOOD ORDERABLES Final Result [facility] [address] [place] [address] documented in this encounter Visit Diagnoses Diagnosis Paroxysmal atrial fibrillation ([facility]-H[facility])- Primary Atrial fibrillation Unstable angina ([facility]-HCC) Intermediate coronary syndrome documented in this encounter Additional Health Concerns Assessment Noted Time PHQ-9 Depression Total Score: 0 12/29/19 21 3:16 PM EDT documented as of this encounter Care Teams Parking Lot Manager Relationship Specialty Start Date End Date Merrick Rubi MD PCP - General Family Medicine 10/20/20 documented as of this encounter
--- OUTSIDE RECORDS SUMMARY | 2025-05-25 12:40 | XMS_ITS | Clinical Summary ---
Author Organization [facility] Address [address], [address] [place] [address] Care Team Providers Care Unix Developer Name Role Phone Merrick Rubi MD Primary Care Provider [phone] Allergies Active Allergy Reactions Criticality Noted Date [...] mouth daily Active Multiple Vitamins-Minera ls (THERAPEUTIC MULTIVITAMIN-[place] NERALS) tablet Take 1 tablet by mouth [...] of Treatment Not on file Insurance MEDICARE [facility] Advance Directives * Full Code (Latest Code Status on File) Date Activated Date Inactivated Comments 01/30/2016 1:33 PM 01/30/2016 4:23 PM * Full Code Date Activated Date Inactivated Comments 01/30/2016 12:27 PM 01/30/2016 1:33 PM Care Teams Unix Developer Relationship Specialty Start Date End Date Merrick Rubi MD [address] [place] [address] PCP - General 01/17/16
--- OUTSIDE RECORDS SUMMARY | 2025-05-25 12:40 | XMS_ITS | Encounter Summary ---
Author Organization [facility] Address [facility] [place]-[id number] [address] [place] [address] Care Team Providers Care Health Sciences Program Coordinator Name Role Phone Merrick Rubi MD Primary Care Provider [phone] Encounter Details Date Type Department Care Team (Late st Contact Info) Description 01/17/2024 Orders Only [facility] [address] [place] [phone] External, Scanning Provider Social History Tobacco Use [...] often do you attend chur ch or voodoo services? More than 4 times per year 12/28/2020 Do you belong to any clubs o r organizations such as episcopal groups, unions, fraternal or athletic groups, or [...] Answer Date Recorded Total Score 0 12/28/2020 [facility] Occupat ional Health - [...] Recorded Do you need help finding a [employer] career center and/or a training program? No [...] L ORDERABLES Final Result Performing Organization Address [facility] Phone Number MANUALLY TRANSCRIBED RESULTS * ECG 12 lead (01/01/2024 9:50 AM EDT) us Scanning Provider External ECG ORDERABLES Final Result Performing Organization Address [facility] Phone Number MANUALLY TRANSCRIBED RESULTS * Multiple labs (01/01/2024 9:11 AM EDT) us Scanning Provider External [place] IMAGING Final Result Performing Organization Address [facility] Phone Number MANUALLY TRANSCRIBED RESULTS * Multiple labs (01/01/2024 8:52 AM EDT) us Scanning Provider External [place] IMAGING Final Result Performing Organization Address [facility] Phone Number MANUALLY TRANSCRIBED RESULTS * ECG 12 lead (12/31/2023 9:48 AM EDT) us Scanning Provider External ECG ORDERABLES Final Result Performing Organization Address [facility] Phone Number MANUALLY TRANSCRIBED RESULTS * Urinalysis (12/31/2023 9:10 AM EDT) us Scanning Provider External URINE ORDERABLES Pamella l Result Performing Organization Address [facility] Phone Number MANUALLY TRANSCRIBED RESULTS * Multiple labs (12/31/2023 8:51 AM EDT) us Scanning Provider External [place] IMAGING Final Result Performing Organization Address [facility] Phone Number MANUALLY TRANSCRIBED RESULTS * CT [...] ECG ORDERABLES Final Result Performing Organization Address [facility] Phone Number MANUALLY TRANSCRIBED RESULTS * Multiple labs (12/30/2023 8:50 AM EDT) us Scanning Provider External [place] IMAGING Final Result Performing Organization Address [facility] Phone Number MANUALLY TRANSCRIBED RESULTS documented in this encounter Visit Diagnoses Not on filedocumented in this encounter Additional Health Concerns Assessment Noted Time PHQ-9 Depression Total Score: 0 12/29/19 21 3:16 PM EDT documented as of this encounter Care Teams Health Sciences Program Coordinator Relationship Specialty Start Date End Date Merrick Rubi MD PCP - General Family Medicine 10/20/20 documented as of this encounter
--- OUTSIDE RECORDS SUMMARY | 2025-05-25 12:40 | XMS_ITS | Encounter Summary ---
Author Organization [facility] Address [facility] [id number] [address] [place] [address] Care Team Providers Care Can Line Operator Name Role Phone Merrick Rubi MD Primary Care Provider [phone] Encounter Details Date Type Department Care Team (Late st Contact Info) Description 12/16/2020 Orders Only [facility] [address] [place] [phone] External, Scanning Provider Social History Tobacco Use [...] on filedocumented in this encounter Care Teams Can Line Operator Relationship Specialty Start Date End Date Merrick Rubi MD PCP - General Family Medicine 10/20/20 documented as of this encounter
--- OUTSIDE RECORDS SUMMARY | 2025-05-25 12:40 | XMS_ITS | Clinical Summary ---
Author Organization [facility] Address [facility] [place][id number] [address] [place] [address] Care Team Providers Care Reel System Operator Name Role Phone Merrick Rubi MD Primary Care Provider [phone] Allergies Active Allergy Reactions Criticality Noted Date [...] vessel coronary artery bypass graft,Atherosclero sis of [place] coronary artery of [place] heart without angina pectoris,Paroxysma l atrial fibrillation [...] atorvastatin (LIPITOR) 80 mg tabletIndications: Atherosclerosis of [place] coronary artery of [place] heart without angina pectoris,H/O four vessel coronary [...] 04/2021 Paroxysmal atrial fibrillation 01/11/2021 Atherosclerosis of [place] co ronary artery of [place] heart without angina pectoris 01/11/2021 Unstable angina 12/28/2020 Diabetes mellitus Hypertensive urgency Arthritis Dyspnea Other forms of angina pectoris Encounters Date Type Department Care Team Description 03/07/2025 Refill [facility] [address] [place] [address] Marie Garcia, CONTROL CLERK-DEDRICK Med Refill from Last 3 Months Immunizations [...] any clubs o r organizations such as denominational groups, unions, fraternal [...] 2:33 PM 01/03/2021 7:38 PM Care Teams Reel System Operator Relationship Specialty Start Date End Date Merrick Rubi MD PCP - General Family Medicine 10/20/20
--- OUTSIDE RECORDS SUMMARY | 2025-05-25 12:40 | XMS_ITS | Encounter Summary ---
Author Organization [facility] Address [facility] [place][id number] [address] [place] [address] Care Team Providers Care Supervisor Pastry Name Role Phone Merrick Rubi MD Primary Care Provider [phone] Encounter Details Date Type Department Care Team (Late st Contact Info) Description 01/10/2022 Orders Only [facility] [address] [place] [phone] External, Scanning Provider Social History Tobacco Use [...] often do you attend chur ch or latter day services? More than 4 times per year 12/28/2020 Do you belong to any clubs o r organizations such as sikhism groups, unions, fraternal or athletic groups, or [...] Answer Date Recorded Total Score 0 12/28/2020 [facility] Occupat ional Health - [...] Recorded Do you need help finding a [facility] career [facility] and/or a training program? [...] Multiple labs (11/01/2021) us Scanning Provider External [place] IMAGING Final Result Performing Organization Address City/[facility]/ZIP Co de Phone Number MANUALLY TRANSCRIBED RESULTS documented in this encounter Visit Diagnoses Not on filedocumented in this encounter Additional Health Concerns Assessment Noted Time PHQ-9 Depression Total Score: 0 12/29/19 21 3:16 PM EDT documented as of this encounter Care Teams Supervisor Pastry Relationship Specialty Start Date End Date Merrick Rubi MD PCP - General Family Medicine 10/20/20 documented as of this encounter
--- OUTSIDE RECORDS SUMMARY | 2025-05-25 12:40 | XMS_ITS | Encounter Summary ---
Author Organization [facility] Address [facility]-[id number] [address] [place] [address] Care Team Providers Care Pantograph Engraver Name Role Phone Merrick Rubi MD Primary Care Provider [phone] Reason for Visit * Reason Onset Date Comments STAFF MESSAGE 01/03/2021 Encounter Details Date Type Department Care Team (Late st Contact Info) Description 01/03/2021 Telephone [facility] [address] [place] [phone] Fátima Hernandez MD [address] [place] [address] STAFF MESSAGE Social History Tobacco [...] often do you attend chur ch or samaritan services? More than 4 times per year [...] Answer Date Recorded Total Score 0 12/28/2020 [facility] of Occupat ional Health - Occupational Stress [...] Recorded Do you need help finding a [facility] career center and/or a training program? [...] documented as of this encounter Care Teams Pantograph Engraver Relationship Specialty Start Date End Date Merrick Rubi MD PCP - General Family Medicine 10/20/20 documented as of this encounter
--- OUTSIDE RECORDS SUMMARY | 2025-05-25 12:40 | XMS_ITS | Patient Health Record ---
Author Organization [facility] Ma in [place] Address [address] [place] [address] Care Team Providers Care Transporter Radiology Name Role Phone Jeff Rubi Primary Care Provider [phone] Allergies Allergen (clinical drug ingredient) Drug/Non Drug Allergy documented on EMR Reaction Allergy Type Onset Date Status amoxicillin / clavulanate Augmentin Unknown Drug Allergy Active sulfamethoxazole / trimethoprim Bactrim Unknown Drug Allergy Active doxazosin Cardura Unknown Drug Allergy Active amlodipine Norvasc Unknown Drug Allergy Active Results Component Value Reference Range Notes BNP Reviewed date:12/31/2024 08:41:15 PM Interpretation: Performing Lab: Notes/Report: [facility] , NT Pro B Type Natriuretic Pept 1558.0 <=1800.0 pg/mL Performing Lab: see note ML - [facility] LB CBC AUTO DIFF Reviewed date:12/31/2024 08:41:15 PM Interpretation: Performing Lab: Notes/Report: [facility] , White Blood Count 7.2 [...] Performing Lab: see note ML - [facility] LB PROF 14(COMP METB) Reviewed date:12/31/2024 08:41:15 PM Interpretation: Performing Lab: Notes/Report: [facility] , Sodium 138 136-145 mmol/L [...] Performing Lab: see note ML - [facility] LB XR KNEE RT 3V Reviewed date:03/04/2025 06:23:39 PM Interpretation: Performing Lab: Notes/Report: Source Facility: [facility] [place] [address] [place] [address] XRay Report Signed with Addenda Patient: KYLAH ROBIN MR#: [id number] : 1945 Acct:[id number] Age/Sex: 79 / F ADM Date: 03/03/25 Loc: LAB Attending Dr: Dhruv Rubi M.D. Ordering Physician: Dhruv Rubi M.D. Date of Service: 03/03/25 Procedure(s): XR knee RT 3V Accession Number(s): [id number] cc: Dhruv Rubi M.D. ADDENDUM The [place] [address] This is an addendum Correction: Addendum Dictated By: Mariusz Hernandez D.O. 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 Impression dictated by: Mariusz Hernandez M.D. 03/04/2025 9:17 AM Dictation Location: [place] [address] Electronically authenticated by: [id number] Y Date: 03/04/2025 09:17 Patient Name: KYLAH ROBIN MRN: [id number] date: 1945 Sex: F Assigned Patient Location: LAB Current Patient Location: Accession/Order Number: [id number] Exam Date: 03/04/2025 09:16 Report Date: 03/04/2025 09:17 At the request of: DHRUV RUBI MD Procedure: XR knee RT 3V The [place] [address] Patient Name: KYLAH ROBIN MRN: [id number] date: 1945 Sex: F Assigned Patient Location: LAB Current Patient Location: LAB Accession/Order Number: [id number] Exam Date: 03/03/2025 16:06 Report Date: 03/03/2025 [...] Hernandez M.D. 03/03/2025 4:08 PM Dictation Location: [place] [address] Electronically authenticated by: [id number] Y Date: 03/03/2025 16:08 Addendum Dictated By: Mariusz Hernandez D.O. Addendum Signed By: 03/04/25 0 919 Addendum Cosigned By: DD/ TD/TT: / [place] [address] Patient Name: KYLAH ROBIN MRN: [id number]:[id number] date: 1945 Sex: F Assigned Patient Location: LAB Current Patient Location: LAB Accession/Order Number: [id number] Exam Date: 03/03/2025 16:06 Report Date: 03/03/2025 [...] Hernandez M.D. 03/03/2025 4:08 PM Dictation [facility] Electronically authenticated by: [id number] Y Date: 03/03/2025 16:08 Dictated By: Mariusz Hernandez D.O. Signed By: 03/03/25 1611 DD/ 1608 TD/TT: Emergency Room Specialist: [place] [address] XRay Report Signed with Addenda Patient: CINDI ROBIN MR#: [id number] : 1945 Acct:[id number] Age/Sex: 79 / F ADM Date: 03/03/25 Loc: LAB Attending Dr: Violeta Rubi M.D. Ordering Physician: Dhruv Rubi M.D. Date of Service: 03/03/25 Procedure(s): XR kne e RT 3V Accession Number(s): [id number] cc: Dhruv Rubi M.D. ADDENDUM The [place] [address] This is an addendum Correction: Addendum Dictated By : Mariusz Hernandez D.O. 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 Impression dictated by: Mariusz Hernandez M.D. 03/04/2025 9:17 AM Dictation [facility] Electron[facility] authenticated by: [id number] Y Date: 03/04/2025 09:17 Patient Name: KYLAH ROBIN MRN: [id number] date: 1945 Sex: F Assigned Patient Location: LAB Current Patient Location: Accession/Order Numb er: [id number] Exam Date: 03/04/2025 09:16 Report Date: 03/04/2025 09:17 At the request of: DHRUV RUBI MD Procedure: XR knee RT 3V [address] [address] Patient Name: KYLAH ROBIN MRN: [id number] date: 1945 Sex: F Assigned Patient Location: LAB Current Patient Loca tion: LAB Accession/Order Numb er: [id number] Exam Date: 03/03/2025 16:06 Report Date: 03/03/2025 [...] Hernandez M.D. 03/03/2025 4:08 PM Dictation Location: [place] [address] Electronically authenticated by: [id number] Y Date: 03/03/2025 16:08 Addendum Dictated By : Mariusz Hernandez D.O. Addendum Signed By: 03/04/25 0 919 Addendum Cosigned By: DD/ TD/TT: / [address] [address] Patient Name: KYLAH ROBIN MRN: [id number] date: 1945 Sex: F Assigned Patient Location: LAB Current Patient Loca tion: LAB Accession/Order Numb er: [id number] Exam Date: 03/03/2025 16:06 Report Date: 03/03/2025 [...] Hernandez M.D. 03/03/2025 4:08 PM Dictation Location: [place] [address] Electronically authenticated by: [id number] Y Date: 03/03/2025 16:08 Dictated By: Vern Hernandez D.O. Signed By: 03/03/25 1611 DD/ 1608 TD/TT: Emergency Room Specialist: CBC AUTO DIFF Reviewed date:05/28/2024 11:29:23 AM Interpretation: Performing Lab: Notes/Report: [facility] , White Blood Count 8.0 [...] Performing Lab: see note ML - [facility] LB PROF 14(COMP METB) Reviewed date:05/28/2024 11:29:23 AM Interpretation: Performing Lab: Notes/Report: [facility] , Sodium 133 136-145 mmol/L [...] 0.8 Performing Lab: see note ML - [facility] UA RANDOM W or MICROSCOPIC Reviewed date:05/28/2024 11:29:23 AM Interpretation: Performing Lab: Notes/Report: [facility] , Color Urine LT. YELLOW YELLOW Clarity Urine CLEAR CLEAR Specific Spray Urine 1.015 1.005-1.025 pH Urine 6.5 5.0-9.0 [...] Performing Lab: see note ML - [facility] LB Urine Culture, Routine Reviewed date:05/31/2024 10:41:39 PM Interpretation: Performing Lab: Notes/Report: [facility] , Urine Culture, Routine See Below For Report Urine Culture, Routine Urine Culture, Routine No growth Urine Culture, Routine Urine Culture, Routine Performed at: [facility] Urine Culture, Routine Urine Culture, Routine [address], [place] [id number] Urine Culture, Routine Urine Culture, Routine Production Operator: Lavell Benson PhD, Phone: [phone] Urine Culture, Routine Performing Lab: see note LC - [facility] LB SEE REPORT - [employer]va Reactor Operator Id information not found for OBX-specific cattle producers legend [email or web address] Reviewed date:06/09/2024 08:59:57 PM Interpretation: Performing Lab: Notes/Report: [facility] , Magnesium 1.7 1.8-2.4 mg/dL Performing Lab: see note - [facility] RENAL FUNCTION PANEL Reviewed date:06/09/2024 08:59:57 PM Interpretation: Performing Lab: Notes/Report: [facility] , Sodium 135 136-145 mmol/L [...] Performing Lab: see note ML - [facility] LB URIC ACID SERUM Reviewed date:06/09/2024 08:59:57 PM Interpretation: Performing Lab: Notes/Report: [facility] , Uric Acid 3.9 2.6-6.0 mg/dL Performing Lab: see note - [facility] LB PTH, Intact Reviewed date:06/10/2024 07:36:23 PM Interpretation: Performing Lab: Notes/Report: [facility] , PTH, Intact 62 15-65 pg/mL Performed at: [facility] [address] [id number] Production Operator: Ashok Benson PhD, Phone: [phone] Performing Lab: see note - [facility] LB CBC AUTO DIFF Reviewed date:06/18/2024 09:50:39 PM Interpretation: Performing Lab: Notes/Report: [facility] , White Blood Count 7.1 [...] 10 3/uL Performing Lab: see note - [facility] FREE T3 Reviewed date:06/18/2024 09:50:39 PM Interpretation: Performing Lab: Notes/Report: [facility] , Free T3 1.52 2.18-3.98 pg/mL Performing Lab: see note ML - [facility] LB PROF 14(COMP METB) Reviewed date:06/18/2024 09:50:39 PM Interpretation: Performing Lab: Notes/Report: [facility] , Sodium 138 136-145 mmol/L [...] Performing Lab: see note ML - [facility] LB T4 Reviewed date:06/18/2024 09:50:39 PM Interpretation: Performing Lab: Notes/Report: [facility] , T4 Thyroxine 5.30 4.80-13.90 ug/dL Performing Lab: see note ML - [facility] LB TSH Reviewed date:06/18/2024 09:50:39 PM Interpretation: Performing Lab: Notes/Report: [facility] , Thyroid Stimulating Hormone 1.690 0.358-3.740 uIU/mL Performing Lab: see note ML - [facility] LB UA RANDOM W or MICROSCOPIC Reviewed date:06/18/2024 09:50:39 PM Interpretation: Performing Lab: Notes/Report: [facility] , Color Urine LT. YELLOW YELLOW Clarity Urine CLEAR CLEAR Specific Spray Urine 1.020 1.005-1.025 pH Urine 5.5 5.0-9.0 [...] Performing Lab: see note ML - [facility] CA echo doppler complete Reviewed date:06/26/2024 08:23:03 AM Interpretation: Performing Lab: Notes/Report: Source Facility: [facility]-[address] [place] [address] Cardiology Report Signed Patient: KYLAH ROBIN MR#: [id number] : 1945 Acct:[id number] Age/Sex: 78 / F ADM Date: 06/24/24 Loc: CARD Attending Dr: Carlie Prescott M.D. Ordering Physician: Carlie Prescott M.D. Date of Service: 06/24/24 Procedure(s): CA echo doppler complete Accession Number(s): [id number] cc: Carlie Prescott M.D.; Dhruv Rubi M.D. Patient Name: KYLAH ROBIN MR#: [id number] : 1945 Exam Date: 06/24/2024 Ordering Doctor: [...] M.D. Signed By: 06/25/241705 DD/ 04 TD/TT: Emergency Room Specialist: [place] [address] Cardiology Report Signed Patient: CINDI ROBIN MR#: [id number] : 1945 Acct:[id number] Age/Sex: 78 / F ADM Date: 06/24/24 Loc: CARD Attending Dr: Carlie Prescott M.D. Ordering Physician: Carlie Prescott M.D. Date of Service: 06/24/24 Procedure(s): CA ech o doppler complete Accession Number(s): [id number] cc: Carlie Prescott; Dhruv Rubi M.D. Patient Name: KYLAH ROBIN MR#: [id number] : 1945 Exam Date: 06/24/2024 Ordering Doctor: [...] M.D. Signed By: 06/25/241705 DD/ 04 TD/TT: Emergency Room Specialist: FERRITIN Reviewed date:09/01/2024 06:04:15 PM Interpretation: Performing Lab: Notes/Report: [facility] , Ferritin 488.0 8.0-252.0 ng/mL Performing Lab: see note ML - [facility] LB IRON AND TIBC Reviewed date:09/01/2024 06:04:15 PM Interpretation: Performing Lab: Notes/Report: [facility] , Iron 61.0 50.0-170.0 ug/dL Total Iron Binding Capacity 205.0 250.0-450.0 ug/dL Percent Iron Saturation 29.8 Performing Lab: see note ML - [facility] LB VITAMIN D 25 [place] Reviewed date:09/01/2024 06:04:15 PM Interpretation: Performing Lab: Notes/Report: [facility] , Vitamin D 35.4 <20 ng/mL Vit D deficient 20-<30 ng/mL Vit D insufficient 30-100 ng/mL Vit D sufficient >100 ng/mL Potential Toxicity Performing Lab: see note ML - [facility] LB Urine Culture, Routine Reviewed date:09/08/2024 [...] AIDEN Status Urine Culture, Routine Performed at: [facility] Urine Culture, Routine Organism: Gram negative martin : O:ESCCOL Isolated O:GNR Isolated Organism: 1.1 Antibiotic Interpretation AIDEN Status Urine Culture, Routine [address], [place] [id number] Urine Culture, Routine Organism: Gram negative martin : O:ESCCOL Isolated O:GNR Isolated Organism: 1.1 Antibiotic Interpretation AIDEN Status Urine Culture, Routine Production Operator: Lavell Benson PhD, Phone: [phone] Urine Culture, Routine Organism: Gram negative martin [...] F Urine Culture, Routine Organism: Gram negative matrin : O:ESCCOL Isolated O:GNR Isolated Organism: 1.1 [...] LC - [facility] LB SEE REPORT - Mva Reactor Operator Id information not found for OBX-specific cattle producers legend CBC AUTO DIFF Reviewed date:09/20/2024 05:06:04 PM Interpretation: Performing Lab: Notes/Report: [facility] , White Blood Count 15.3 [...] Performing Lab: see note ML - [facility] LB INFLUENZA A AND B AG Reviewed date:09/20/2024 05:06:04 PM Interpretation: Performing Lab: Notes/Report: [facility] , Influenza Virus A Antigen [...] Performing Lab: see note ML - [facility] LB LACTATE or LACTIC ACID Reviewed date:09/20/2024 05:06:04 PM Interpretation: Performing Lab: Notes/Report: [facility] , Lactate/Lactic Acid 1.7 0.4-2.0 mmol/L Performing Lab: see note ML - [facility] LB PROF 14(COMP METB) Reviewed date:09/20/2024 05:06:04 PM Interpretation: Performing Lab: Notes/Report: [facility] , Sodium 135 136-145 mmol/L [...] Performing Lab: see note ML - [facility] LB Troponin I High Sensitivity Reviewed date:09/20/2024 05:06:04 PM Interpretation: Performing Lab: Notes/Report: [facility] , Troponin I High Sensitivity 12.6 4.0-51.3 pg/mL CUT-OFF POINTS HAVE BEEN ESTABLISHED BASED ON THE FOURTH UNIVERSAL DEFINITION OF MYOCARDIAL INFARCTION. THE UPPER REFERENCE LIMIT (URL) OF TROPONIN, DEFINED THE 99TH PERCENTILE OF cTnI DISTRIBUTION IN A REFERENCE POPULATION, HAS BEEN CONFIRMED THE DECISION THRESHOLD FOR [place] DIAGNOSIS. 99TH PERCENTILE = 51.4 PG/ML NOTE: HIGH-SENSITIVITY TROPONIN ASSAY IS NOT INTENDED TO BE USED IN ISOLATION BUT SHOULD BE INTERPRETED IN CONJUNCTION WITH OTHER DIAGNOSTIC AND CLINICAL INFORMATION. Performing Lab: see note ML - [facility] LB TSH W/ REFLEX FT4 Reviewed date:09/20/2024 05:06:04 PM Interpretation: Performing Lab: Notes/Report: [facility] , TSH W/ REFLEX FT4 1.297 0.358-3.740 uIU/mL Performing Lab: see note ML - [facility] LB SARS-CoV-2 Ag* Reviewed date:09/20/2024 05:06:04 PM Interpretation: Performing Lab: Notes/Report: [facility] , SARS-CoV-2 Ag NEGATIVE NEGATIVE [...] Performing Lab: see note ML - [facility] LB ECG 12 lead Reviewed date:09/22/2024 12:37:02 PM Interpretation: Performing Lab: Notes/Report: Source Facility: [place] [address] [place] [address] Electrocardiograph Report Signed Patient: KYLAH ROBIN MR#: [id number] : 1945 Acct:[id number] Age/Sex: 78 / F ADM Date: 09/20/24 Loc: ER Attending Dr: Ordering Physician: Luis Lugo Date of Service: 09/20/24 Procedure(s): ECG 12 lead Accession Number(s): [id number] cc: [facility] Test Date: 2024-09-20 Pat Name: KYLAH ROBIN Department: Room: - 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 Signed By: 09/22/24 0658 DD/ 152 TD/TT: Emergency Room Specialist: CHIN chest 1V Reviewed date:09/20/2024 05:06:04 PM Interpretation: Performing Lab: Notes/Report: Source Facility: [place] [address] [place] [address] XRay Report Signed Patient: KYLAH ROBIN MR#: [id number] : 1945 Acct:[id number] Age/Sex: 78 / F ADM Date: 09/20/24 Loc: ER Attending Dr: Ordering Physician: Luis Lugo Date of Service: 09/20/24 Procedure(s): XR chest 1V Accession Number(s): [id number] cc: Dhruv Rubi M.D.; Luis Lugo [address] [address] Patient Name: KYLAH ROBIN MRN: [id number] date: 1945 Sex: F Assigned Patient Location: ER Current Patient Location: ER Accession/Order Number: [id number] Exam Date: 09/20/2024 15:28 Report Date: 09/20/2024 [...] Signed By: 09/20/24 1601 DD/ 1558 TD/TT: Emergency Room Specialist: [place] [address] XRay Report Signed Patient: CINDI ROBIN MR#: [id number] : 1945 Acct:[id number] Age/Sex: 78 / F ADM Date: 09/20/24 Loc: ER Attending Dr: Ordering Physician: Luis Lugo Date of Service: 09/20/24 Procedure(s): XR chest 1V Accession Number(s): [id number] cc: Dhruv Rubi M.D. ; Luis Lugo [address] [id number] Patient Name: KYLAH ROBIN MRN: [id number] date: 1945 Sex: F Assigned Patient Location: ER Current Patient Loca tion: ER Accession/Order Numb er: [id number] Exam Date: 15:28 Report Date: 09/20/2024 15:58 [...] Signed By: 09/20/24 1601 DD/ 1558 TD/TT: Emergency Room Specialist: CBC AUTO DIFF Reviewed date:11/18/2024 10:07:51 PM Interpretation: Performing Lab: Notes/Report: [facility] , White Blood Count 6.9 [...] 3/uL Performing Lab: see note - [facility] LB PROF CHEM 8 (BAS METB) Reviewed date:11/18/2024 10:07:51 PM Interpretation: Performing Lab: Notes/Report: [facility] , Sodium 140 136-145 mmol/L [...] mg/dL Performing Lab: see note - [facility] LB ECG 12 lead Reviewed date:11/20/2024 06:53:57 AM Interpretation: Performing Lab: Notes/Report: Source Facility: [facility]-[address] [place] [address] [place] [address] Electrocardiograph Report Signed Patient: KYLAH ROBIN MR#: [id number] : 1945 Acct:[id number] Age/Sex: 78 / F ADM Date: 11/17/24 Loc: ER Attending Dr: Ordering Physician: Pee Prabhakar M.D. 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 Signed By: 11/20/2424 DD/ 17 TD/TT: Emergency Room Specialist: [place] [address] Electrocardiograph Report Signed Patient: CINDI ROBIN MR#: [id number] : 1945 Acct:[id number] Age/Sex: 78 / F ADM Date: 11/17/24 Loc: ER Attending Dr: Ordering Physician: Pee Prabhakar M.D. 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 Signed By: 11/20/24 0524 DD/ 2218 TD/TT: Emergency Room Specialist: XR chest 2V Reviewed date:12/31/2024 08:41:15 PM Interpretation: Performing Lab: Notes/Report: Source Facility: [place] [address] XRay Report Signed Patient: KYLAH ROBIN MR#: [id number] : 1945 Acct:[id number] Age/Sex: 79 / F ADM Date: 12/31/24 Loc: LAB Attending Dr: Dhruv Rubi M.D. Ordering Physician: Dhruv Rubi M.D. Date of Service: 12/31/24 Procedure(s): XR chest 2V Accession Number(s): [id number] cc: Dhruv Rubi M.D. [place] [address] Patient Name: KYLAH ROBIN MRN: [id number] date: 1945 Sex: F Assigned Patient Location: LAB Current Patient Location: LAB Accession/Order Number: [id number] Exam Date: 12/31/2024 12:38 Report Date: 12/31/2024 [...] Mariusz Hernandez M.D.12/31/2024 12:41 PM Dictation Location: [place] [address] Electronically authenticated by: [id number] Y Date: 12/31/2024 12:41 Dictated By: Mariusz Hernandez D.O. Signed By: 12/31/24 124 DD/ 124 TD/TT: Emergency Room Specialist: [address] [address] XRay Report Signed Patient: CINDI ROBIN MR#: [id number] : 1945 Acct:[id number] Age/Sex: 79 / F ADM Date: 12/31/24 Loc: LAB Attending Dr: Violeta Rubi M.D. Ordering Physician: Dhruv Rubi M.D. Date of Service: 12/31/24 Procedure(s): XR chest 2V Accession Number(s): [id number] cc: Dhruv Rubi M.D. [address] [address] Patient Name: KYLAH ROBIN MRN: [id number] date: 1945 Sex: F Assigned Patient Location: LAB Current Patient Loca tion: LAB Accession/Order Numb er: [id number] Exam Date: 12/31/2024 12:38 Report Date: 12/31/2024 [...] Mariusz Hernandez M.D.12/31/2024 12:41 PM Dictation Location: [place] [address] Electronically authenticated by: [id number] Y Date: 12/31/2024 12:41 Dictated By: Vern Hernandez D.O. Signed By: 12/31/244 DD/ 124 TD/TT: Emergency Room Specialist: BLANCA Reviewed date:01/05/2025 07:25:49 PM Interpretation: Performing Lab: Notes/Report: [facility] , Ferritin 499.0 8.0-252.0 ng/mL Performing Lab: see note ML - [facility] LB CT abdomen pelvis wo con Reviewed date:09/20/2024 05:06:04 PM Interpretation: Performing Lab: Notes/Report: Source Facility: [facility]-[address] [place] [address] [place] [address] CT Scan Report Signed Patient: KYLAH ROBIN MR#: [id number] : 1945 Acct:[id number] Age/Sex: 78 / F ADM Date: 09/20/24 Loc: ER Attending Dr: Ordering Physician: Luis Lugo Date of Service: 09/20/24 Procedure(s): CT abdomen pelvis wo con Accession Number(s): [id number] cc: Dhruv Rubi M.D. [place] [address] Patient Name: KYLAH ROBIN MRN: [id number] date: 1945 Sex: F Assigned Patient Location: ER Current Patient Location: ER Accession/Order Number: [id number] Exam Date: 09/20/2024 15:52 Report Date: 09/20/2024 [...] M.D. Signed By: 09/20/241622 DD/ 19 TD/TT: Emergency Room Specialist: The [address] [address] [address] Scan Report Signed Patient: CINDI ROBIN MR#: [id number] : 1945 Acct:[id number] Age/Sex: 78 / F ADM Date: 09/20/24 Loc: ER Attending Dr: Ordering Physician: Luis Lugo Date of Service: 09/20/24 Procedure(s): CT abd omen pelvis wo con Accession Number(s): [id number] cc: Dhruv Rubi M.D. [address] [address] Patient Name: KYLAH ROBIN MRN: [id number] date: 1945 Sex: F Assigned Patient Location: ER Current Patient Loca tion: ER Accession/Order Numb er: [id number] Exam Date: 15:52 Report Date: 09/20/2024 16:20 [...] M.D. Signed By: 09/20/241622 DD/ 19 TD/TT: Emergency Room Specialist: URINE MICROSCOPIC ONLY Reviewed date:09/20/2024 05:06:04 PM Interpretation: Performing Lab: Notes/Report: [facility] , WBC Urine NONE SEEN NONE SEEN #/HPF RBC Urine 0-2 0-2 #/HPF Bacteria Urine TRACE NONE SEEN #/HPF Mucus Urine NONE SEEN NONE SEEN Squamous Epithelial Cell Urine MODERATE NONE/RARE #/LPF Crystals Seen? None Seen None Seen #/HPF Cast Seen? NONE SEEN NONE SEEN #/LPF Urine Culture Indicated NO Performing Lab: see note ML - [facility] LB UA (CLEAN or CATCH) LADLE OPERATOR or M ICRO IF IND. Reviewed date:09/20/2024 05:06:04 PM Interpretation: Performing Lab: Notes/Report: [facility] , Color Urine YELLOW YELLOW Clarity Urine CLEAR CLEAR Specific Spray Urine 1.020 1.005-1.025 pH Urine 5.5 5.0-9.0 Protein Urine 100 NEG/TRACE mg/dL Glucose Urine UA NEGATIVE NEGATIVE mg/dL Bilirubin Urine NEGATIVE NEGATIVE Ketones Urine NEGATIVE NEGATIVE mg/dL Blood Urine NEGATIVE NEGATIVE Nitrite Urine NEGATIVE NEGATIVE Urobilinogen Urine 0.2 0.2-1.0 EU/dL Leukocyte Esterase Urine NEGATIVE NEGATIVE Urine Microscopic Indicated YES Performing Lab: see note ML - [facility] LB URINE T PROTEIN CREAT RATIO Reviewed date:01/05/2025 07:25:49 PM Interpretation: Performing Lab: Notes/Report: [facility] , Total Protein Urine Random 108.9 <=11.9 mg/dL Creatinine Urine Random 157.18 20.00-30 0.00 mg/dL Protein Creatinine Ratio Urine 0.69 Performing Lab: see note ML - [facility] LB VITAMIN D 25 [place] Reviewed date:01/05/2025 07:25:49 PM Interpretation: Performing Lab: Notes/Report: [facility] , Vitamin D 30.9 <20 ng/mL Vit D deficient 20-<30 ng/mL Vit D insufficient 30-100 ng/mL Vit D sufficient >100 ng/mL Potential Toxicity Performing Lab: see note - [facility] LB UA RANDOM W or MICROSCOPIC Reviewed date:09/06/2024 12:29:49 PM Interpretation: Performing Lab: Notes/Report: [facility] , Color Urine DK. ORANGE YELLOW Clarity Urine CLEAR CLEAR Specific Spray Urine 1.010 1.005-1.025 pH Urine COLOR INTERFERENCE [...] Performing Lab: see note ML - [facility] LB PTH, Intact Reviewed date:01/06/2025 08:09:23 PM Interpretation: Performing Lab: Notes/Report: [facility] , PTH, Intact 73 15-65 pg/mL Performed at: [facility] [address] [id number] Production Operator: Ashok Benson PhD, Phone: [phone] Performing Lab: see note - [facility] LB CBC no Diff (Hemogram) Reviewed date:09/01/2024 06:04:15 PM Interpretation: Performing Lab: Notes/Report: [facility] , White Blood Count 6.3 [...] fL Performing Lab: see note ML - [facility] LB URIC ACID SERUM Reviewed date:09/01/2024 06:04:15 PM Interpretation: Performing Lab: Notes/Report: [facility] , Uric Acid 4.2 2.6-6.0 mg/dL Performing Lab: see note ML - [facility] LB RENAL FUNCTION PANEL Reviewed date:09/01/2024 06:04:15 PM Interpretation: Performing Lab: Notes/Report: [facility] , Sodium 136 136-145 mmol/L [...] g/dL Performing Lab: see note ML - [facility] MAGNESIUM Reviewed date:09/01/2024 06:04:15 PM Interpretation: Performing Lab: Notes/Report: [facility] , Magnesium 1.9 1.8-2.4 mg/dL Performing Lab: see note ML - [facility] LB XR DEXA axial skeleton Reviewed date:06/10/2024 07:36:23 PM Interpretation: Performing Lab: Notes/Report: Source Facility: [facility] [place] [address] [place] [address] XRay Report Signed Patient: KYLAH ROBIN MR#: [id number] : 1945 Acct:[id number] Age/Sex: 78 / F ADM Date: 06/10/24 Loc: RAD Attending Dr: Dhruv Rubi M.D. Ordering Physician: Dhruv Rubi M.D. Date of Service: 06/10/24 Procedure(s): XR DEXA axial skeleton Accession Number(s): [id number] cc: Dhruv Rubi M.D. [place] [id number] Patient Name: KYLAH ROBIN MRN: [facility]:[id number] date: 1945 Sex: F Assigned Patient Location: [facility] Current Patient Location: RAD Accession/Order Number: [id number] Exam Date: 06/10/2024 08:44 Report Date: 06/10/2024 [...] prevention and treatment of osteoporosis. Osteoporos Int. 2021;33(10):2654-7004. doi: 10.1007/p93683-563-05657-g. Epub 2021Feb 01. Erratum in: Osteoporos Int. 2021May 03;: PMID: [id number]; PMCID: [id number]. Electronically authenticated by: JAIRO KIM Date: 06/10/2024 10:29 Dictated By: Jairo Kim M.D. Signed By: 06/10/24 1032 DD/ 1029 TD/TT: Emergency Room Specialist: The [address] [address] XRay Report Signed Patient: CINDI ROBIN MR#: [id number] : 1945 Acct:[id number] Age/Sex: 78 / F ADM Date: 06/10/24 Loc: RAD Attending Dr: Violeta Rubi M.D. Ordering Physician: Dhruv Rubi M.D. Date of Service: 06/10/24 Procedure(s): XR DEX A axial skeleton Accession Number(s): [id number] cc: Dhruv Rubi M.D. [address] [address] Patient Name: KYLAH ROBIN MRN: [facility]:[id number] date: 1945 Sex: F Assigned Patient Location: RAD Current Patient Loca tion: RAD Accession/Order Numb er: [id number] Exam Date: 06/10/2024 08:44 Report Date: 06/10/2024 [...] prevention and treatment of osteoporosis. Osteoporos Int. 2021;3310):7688-1769. doi: 10.1007/t90927-320-43465- y. Epub 2021Feb 01. Erratum in: Osteoporos Int. 2021May 03;: PMID: [id number]; PMCID: [id number]. Electronically authenticated by: JAIRO KIM Date: 06/10/2024 10:29 Dictated By: Jairo Kim M.D. Signed By: 06/10/24 1032 DD/ 1029 TD/TT: Emergency Room Specialist: CBC no Diff (Hemogram) Reviewed date:06/09/2024 08:59:57 PM Interpretation: Performing Lab: Notes/Report: [facility] , White Blood Count 6.8 [...] fL Performing Lab: see note ML - [facility] LB VITAMIN D 25 [place] Reviewed date:06/09/2024 08:59:57 PM Interpretation: Performing Lab: Notes/Report: [facility] , Vitamin D 39.9 <20 ng/mL Vit D deficient 20-<30 ng/mL Vit D insufficient 30-100 ng/mL Vit D sufficient >100 ng/mL Potential Toxicity Performing Lab: see note ML - [facility] LB URINE T PROTEIN CREAT RATIO Reviewed date:06/09/2024 08:59:57 PM Interpretation: Performing Lab: Notes/Report: [facility] , Total Protein Urine Random 77.8 <=11.9 mg/dL Creatinine Urine Random 117.64 20.00-30 0.00 mg/dL Protein Creatinine Ratio Urine 0.66 Performing Lab: see note ML - [facility] LB CBC AUTO DIFF Reviewed date:05/02/2025 09:35:15 PM Interpretation: Performing Lab: Notes/Report: [facility] , White Blood Count 16.3 4.0-11.0 10 3/uL Red Blood Count 3.49 4.20-5.40 10 6/uL Hemoglobin 10.9 12.0-16.0 g/dL Hematocrit 31.9 36.0-48.0 % Mean Corpuscular Volume 91.4 81.0-99.0 fL Mean Corpuscular Hemoglobin 31.2 26.7-34.0 pg Mean Corpuscular HGB Conc 34.2 29.9-35.2 g/dL Red Cell Distribution Width 15.6 11.0-15.0 % Platelet Count 212 150-450 10 3/uL Mean Platelet Volume 9.0 9.5-13.5 fL Neutrophils Percent Auto 90.1 43.0-75.0 % Lymphocytes Percent Auto 5.3 20.5-60.0 % Monocytes Percent Auto 3.6 1.7-12.0 % Eosinophils Percent Auto 0.3 0.9-7.0 % Basophils Percent Auto 0.2 0.2-2.0 % Immature Granulocytes Pct Auto 0.5 0.0-0.5 % Neutrophils Absolute Auto 14.7 1.4-6.5 10 3/uL Lymphocytes Absolute Auto 0.9 1.2-3.8 10 3/uL Monocytes Absolute Auto 0.6 0.3-0.8 10 3/uL Eosinophils Absolute Auto 0.1 0.0-0.7 10 3/uL Basophils Absolute Auto 0.0 0.0-0.1 10 3/uL Immature Granulocytes Abs Auto 0.08 0.00-0.03 10 3/uL Performing Lab: see note ML - [facility] LB LACTATE or LACTIC ACID Reviewed date:05/02/2025 09:35:15 PM Interpretation: Performing Lab: Notes/Report: [facility] , Lactate/Lactic Acid 2.7 0.4-2.0 mmol/L RESULT S CALLED TO DMITRIY LYNNE Performing Lab: see note ML - [facility] LB PROF 14(COMP METB) Reviewed date:05/02/2025 09:35:15 PM Interpretation: Performing Lab: Notes/Report: [facility] , Sodium 133 136-145 mmol/L Potassium 4.8 3.5-5.1 mmol/L Chloride 96 98-107 mmol/L Carbon Dioxide 29.0 21.0-32.0 mmol/L Anion Gap 12.8 Glucose 194 74-106 mg/dL Blood Urea Nitrogen 40.0 7.0-18.0 mg/dL Creatinine 2.59 0.55-1.02 mg/dL Estimated GFR ( Shruthi 22 >=60 mL/min/1.73m 2 Estimated GFR (Non- Trang 18 >=60 mL/min/1.73m 2 BUN Creatinine Ratio 15.4 Calcium 10.1 8.5-10.1 mg/dL Bilirubin Total 0.9 0.2-1.0 mg/dL Aspartate Amino Transferase 40 15-37 U/L Alanine Aminotransferase 45 14-59 U/L Alkaline Phosphatase 89 46-116 U/L Total Protein 8.1 6.4-8.2 g/dL Albumin Level 3.4 3.4-5.0 g/dL Globulin 4.7 Albumin Globulin Ratio 0.7 Performing Lab: see note ML - [facility] LB SARS-CoV-2 Ag* Reviewed date:05/02/2025 09:35:15 PM Interpretation: Performing Lab: Notes/Report: [facility] , SARS-CoV-2 Ag POSITIVE NEGATIVE This test has not been FDA [...] is revoked sooner. Performing Lab: see note - [facility] LB UA Micro, reflex to culture Reviewed date:05/02/2025 09:35:15 PM Interpretation: Performing Lab: Notes/Report: [facility] , Color Urine LT. YELLOW YELLOW Clarity Urine CLEAR CLEAR Specific Spray Urine 1.020 1.005-1.025 pH Urine 6.0 5.0-9.0 Protein Urine >=300 NEG/TRACE mg/dL Glucose Urine UA NEGATIVE NEGATIVE mg/dL Bilirubin Urine NEGATIVE NEGATIVE Ketones Urine NEGATIVE NEGATIVE mg/dL Blood Urine TRACE-I NEGATIVE Nitrite Urine NEGATIVE NEGATIVE Urobilinogen Urine 0.2 0.2-1.0 EU/dL Leukocyte Esterase Urine NEGATIVE NEGATIVE WBC Urine 0-2 NONE SEEN #/HPF RBC Urine 2-5 0-2 #/HPF Bacteria Urine TRACE NONE SEEN #/HPF Mucus Urine NONE SEEN NONE SEEN Squamous Epithelial Cell Urine NONE SEEN NONE/RARE #/LPF Crystals Seen? None Seen None Seen #/HPF Cast Seen? NONE SEEN NONE SEEN #/LPF Performing Lab: see note ML - [facility] LB XR chest 1V Reviewed date:05/02/2025 09:35:15 PM Interpretation: Performing Lab: Notes/Report: Source Facility: [place] [address] XRay Report Signed Patient: KYLAH ROBIN MR#: [id number] : 1945 Acct:[id number] Age/Sex: 79 / F ADM Date: 04/30/25 Loc: ER Attending Dr: Ordering Physician: Dmitriy Lynne Date of Service: 04/30/25 Procedure(s): XR chest 1V Accession Number(s): [id number] cc: Dmitriy Lynne; Dhruv Rubi M.D. [place] [address] Patient Name: KYLAH ROBIN MRN: [facility]:[id number] date: 1945 Sex: F Assigned Patient Location: ER Current Patient Location: ED.MAIN Accession/Order Number: [id number] Exam Date: 04/30/2025 22:00 Report Date: 04/30/2025 22:01 At the request of: DMITRIY LYNNE MD Procedure: XR chest 1V Plain film chest Single view HISTORY: Dyspnea COMPARISON: 04/21/2025 FINDINGS: SUPPORT DEVICES: None POSTSURGICAL CHANGES: Sternotomy HEART: Within normal limits PULMONARY GISELL: Within normal limits MEDIASTINUM: Unremarkable LUNGS AND PLEURA: No acute lung process, pleural effusion or pneumothorax identified. Similar mild interstitial changes BONY STRUCTURES: Intact ADDITIONAL FINDINGS None XR/XR chest 1V IMPRESSION: No acute process. Impression dictated by: Mariusz Hernandez M.D. 04/30/2025 10:01 PM Dictation Location[facility] Electronically authenticated by: [id number] Y Date: 04/30/2025 22:01 Dictated By: Mariusz Hernandez D.O. Signed By: 04/30/252202 DD/ 00 TD/TT: Emergency Room Specialist: [place] [address] XRay Report Signed Patient: CINDI ROBIN MR#: [id number] : 1945 Acct:[id number] Age/Sex: 79 / F ADM Date: 04/30/25 Loc: ER Attending Dr: Ordering Physician: Dmitriy Lynne Date of Service: 04/30/25 Procedure(s): XR chest 1V Accession Number(s): [id number] cc: Dmitriy Lynne; Dhruv Rubi M.D. The [address] [address] Patient Name: KYLAH ROBIN MRN: [facility]:[id number] date: 1945 Sex: F Assigned Patient Location: ER Current Patient Loca tion: ED.MAIN Accession/Order Numb er: [id number] Exam Date: 04/30/2025 22:00 Report Date: 04/30/2025 22:01 At the request of: DMITRIY LYNNE MD Procedure: XR chest 1V Plain film chest Sin gle view HISTORY: Dyspnea COMPARISON: 04/21/2025 FINDINGS: SUPPORT DEVICES: None POSTSURGICAL CHANGES : Sternotomy HEART: Within normal limits PULMONARY GISELL: With in normal limits MEDIASTINUM: Unremarkable LUNGS AND PLEURA: No acute lung process, pleural effusion or pneumothorax identified. Similar mild interstitial changes BONY STRUCTURES: Intact ADDITIONAL FINDINGS None X R/XR chest 1V IMPRESSION: No acute process. Impression dictated by: Mariusz Hernandez M.D. 04/30/2025 10:01 PM Dictation Location: [place] [address] Electronically authenticated by: [id number] Y Date: 04/30/2025 22:01 Dictated By: Vern Hernandez D.O. Signed By: 04/30/252202 DD/ 00 TD/TT: Emergency Room Specialist: IRON AND TIBC Reviewed date:06/09/2024 08:59:57 PM Interpretation: Performing Lab: Notes/Report: [facility] , Iron 65.0 50.0-170.0 ug/dL Total Iron Binding Capacity 186.0 250.0-450.0 ug/dL Percent Iron Saturation 34.9 Performing Lab: see note ML - [facility] LB FERRITIN Reviewed date:06/09/2024 08:59:57 PM Interpretation: Performing Lab: Notes/Report: [facility] , Ferritin 792.0 8.0-252.0 ng/mL Performing Lab: see note ML - [facility] LB Troponin I High Sensitivity Reviewed date:05/28/2024 11:29:23 AM Interpretation: Performing Lab: Notes/Report: [facility] , Troponin I High Sensitivity 8.5 4.0-51.3 pg/mL CUT-OFF POINTS HAVE BEEN ESTABLISHED BASED ON THE FOURTH UNIVERSAL DEFINITION OF MYOCARDIAL INFARCTION. THE UPPER REFERENCE LIMIT (URL) OF TROPONIN, DEFINED THE 99TH PERCENTILE OF cTnI DISTRIBUTION IN A REFERENCE POPULATION, HAS BEEN CONFIRMED THE DECISION THRESHOLD FOR [place] DIAGNOSIS. 99TH PERCENTILE = 51.4 PG/ML NOTE: HIGH-SENSITIVITY TROPONIN ASSAY IS NOT INTENDED TO BE USED IN ISOLATION BUT SHOULD BE INTERPRETED IN CONJUNCTION WITH OTHER DIAGNOSTIC AND CLINICAL INFORMATION. Performing Lab: see note ML - [facility] LB BNP Reviewed date:05/28/2024 11:29:23 AM Interpretation: Performing Lab: Notes/Report: [facility] , NT Pro B Type Natriuretic Pept 1529.0 <=1800.0 pg/mL Performing Lab: see note ML - [facility] LB RENAL FUNCTION PANEL Reviewed date:01/05/2025 07:25:49 PM Interpretation: Performing Lab: Notes/Report: [facility] , Sodium 141 136-145 mmol/L [...] Performing Lab: see note ML - [facility] LB MAGNESIUM Reviewed date:01/05/2025 07:25:49 PM Interpretation: Performing Lab: Notes/Report: [facility] , Magnesium 1.9 1.8-2.4 mg/dL Performing Lab: see note ML - [facility] LB IRON AND TIBC Reviewed date:01/05/2025 07:25:49 PM Interpretation: Performing Lab: Notes/Report: [facility] , Iron 69.0 50.0-170.0 ug/dL Total Iron Binding Capacity 207.0 250.0-450.0 ug/dL Percent Iron Saturation 33.3 Performing Lab: see note ML - [facility] LB Troponin I High Sensitivity Reviewed date:12/31/2024 08:41:15 PM Interpretation: Performing Lab: Notes/Report: [facility] , Troponin I High Sensitivity 11.5 4.0-51.3 pg/mL CUT-OFF POINTS HAVE BEEN ESTABLISHED BASED ON THE FOURTH UNIVERSAL DEFINITION OF MYOCARDIAL INFARCTION. THE UPPER REFERENCE LIMIT (URL) OF TROPONIN, DEFINED THE 99TH PERCENTILE OF cTnI DISTRIBUTION IN A REFERENCE POPULATION, HAS BEEN CONFIRMED THE DECISION THRESHOLD FOR [place] DIAGNOSIS. 99TH PERCENTILE = 51.4 PG/ML NOTE: HIGH-SENSITIVITY TROPONIN ASSAY IS NOT INTENDED TO BE USED IN ISOLATION BUT SHOULD BE INTERPRETED IN CONJUNCTION WITH OTHER DIAGNOSTIC AND CLINICAL INFORMATION. Performing Lab: see note ML - [facility] LB MM tomosynthesis screening B I Reviewed date:12/22/2024 08:51:42 PM Interpretation: Performing Lab: Notes/Report: Source Facility: [facility]-[address] [place] [address] [place] [address] Mammography Report Signed Patient: KYLAH ROBIN MR#: [id number] : 1945 Acct:[id number] Age/Sex: 79 / F ADM Date: 12/22/24 Loc: MAMMO Attending Dr: Dhruv Rubi M.D. Ordering Physician: Dhruv Rubi M.D. Results: Date of Service: 12/22/24 Follow Up: Procedure(s): MM tomosynthesis screening BI Accession Number(s): [id number] cc: Dhruv Rubi M.D. Patient Name: KYLAH ROBIN MR#: [id number] : 1945 Exam Date: 12/22/2024 Ordering Doctor: [...] cancer at age 61. LOCATION: [facility] BREAST COMPOSITION: There are scattered [...] Signed By: 12/22/24 1602 DD/ 1601 TD/TT: Emergency Room Specialist: [place] [address] Mammography Report Signed Patient: CINDI ROBIN MR#: [id number] : 1945 Acct:[id number] Age/Sex: 79 / F ADM Date: 12/22/24 Loc: MAMMO Attending Dr: Violeta Rubi M.D. Ordering Physician: Dhruv Rubi M.D. Results: Date of Service: Follow Up: Procedure(s): MM tomosynthesis screening BI Accession Number(s): [id number] cc: Dhruv Rubi M.D. Patient Name: KYLAH ROBIN MR#: [id number] : 1945 Exam Date: 12/22/2024 Ordering Doctor: [...] can cer at age 61. LOCATION: The [facility] BREAST COMPOSITION: There are scattered areas [...] Gamino M.D. Signed By: 12/22/24 160 DD/ 160 TD/TT: Emergency Room Specialist: UA RANDOM W or MICROSCOPIC Reviewed date:01/05/2025 07:25:49 PM Interpretation: Performing Lab: Notes/Report: [facility] , Color Urine LT. YELLOW YELLOW Clarity Urine CLOUDY CLEAR Specific Spray Urine 1.020 1.005-1.025 pH Urine 6.0 5.0-9.0 [...] Performing Lab: see note ML - [facility] LB URIC ACID SERUM Reviewed date:01/05/2025 07:25:49 PM Interpretation: Performing Lab: Notes/Report: [facility] , Uric Acid 3.9 2.6-6.0 mg/dL Performing Lab: see note ML - [facility] LB CBC no Diff (Hemogram) Reviewed date:01/05/2025 07:25:49 PM Interpretation: Performing Lab: Notes/Report: [facility] , White Blood Count 6.0 [...] fL Performing Lab: see note ML - [facility] LB XR knee RT 4V Reviewed date:04/14/2025 07:10:06 PM Interpretation: Performing Lab: Notes/Report: Source Facility: [facility] [place] [address] [place] [address] XRay Report Signed Patient: KYLAH ROBIN MR#: [id number] : 1945 Acct:[id number] Age/Sex: 79 / F ADM Date: 04/14/25 Loc: RAD Attending Dr: Dhruv Rubi M.D. Ordering Physician: Dhruv Rubi M.D. Date of Service: 04/14/25 Procedure(s): XR knee RT 4V Accession Number(s): [id number] cc: Dhruv Rubi M.D. [place] [address] Patient Name: KYLAH ROBIN MRN: [id number] date: 1945 Sex: F Assigned Patient Location: [facility] Current Patient Location: [facility] Accession/Order Number: [id number] Exam Date: 04/14/2025 09:52 Report Date: 04/14/2025 [...] Good M.D. 04/14/2025 9:55 AM Dictation Location: [place] [address] Electronically authenticated by: [id number] Y Date: 04/14/2025 09:55 Dictated By: Cary Good M.D. Signed By: 04/14/25957 DD/ 4 TD/TT: Emergency Room Specialist: [place] [address] XRay Report Signed Patient: CINDI ROBIN MR#: [id number] : 1945 Acct:[id number] Age/Sex: 79 / F ADM Date: 04/14/25 Loc: RAD Attending Dr: Violeta Rubi M.D. Ordering Physician: Dhruv Rubi M.D. Date of Service: 04/14/25 Procedure(s): XR kne e RT 4V Accession Number(s): [id number] cc: Dhruv Rubi M.D. [place] [address] Patient Name: KYLAH ROBIN MRN: [id number] date: 1945 Sex: F Assigned Patient Location: RAD Current Patient Loca tion: RAD Accession/Order Numb er: [id number] Exam Date: 04/14/2025 09:52 Report Date: 04/14/2025 [...] Good M.D. 04/14/2025 9:55 AM Dictation Location: [place] [address] Electronically authenticated by: [id number] Y Date: 04/14/2025 09:55 Dictated By: Cary Good M.D. Signed By: 04/14/25957 DD/ 0955 TD/TT: Emergency Room Specialist: BNP Reviewed date:04/22/2025 06:54:09 PM Interpretation: Performing Lab: Notes/Report: [facility] , NT Pro B Type Natriuretic Pept 1188.0 <=1800.0 pg/mL Performing Lab: see note ML - [facility] LB CBC AUTO DIFF Reviewed date:04/22/2025 06:54:09 PM Interpretation: Performing Lab: Notes/Report: [facility] , White Blood Count 9.3 4.0-11.0 [...] Performing Lab: see note ML - [facility] LB PROF CHEM 8 (BAS METB) Reviewed date:04/22/2025 06:54:09 PM Interpretation: Performing Lab: Notes/Report: [facility] , Sodium 141 136-145 mmol/L [...] Performing Lab: see note ML - [facility] LB Troponin I High Sensitivity Reviewed date:04/22/2025 06:54:09 PM Interpretation: Performing Lab: Notes/Report: [facility] , Troponin I High Sensitivity 11.0 4.0-51.3 pg/mL CUT-OFF POINTS HAVE BEEN ESTABLISHED BASED ON THE FOURTH UNIVERSAL DEFINITION OF MYOCARDIAL INFARCTION. THE UPPER REFERENCE LIMIT (URL) OF TROPONIN, DEFINED THE 99TH PERCENTILE OF cTnI DISTRIBUTION IN A REFERENCE POPULATION, HAS BEEN CONFIRMED THE DECISION THRESHOLD FOR [place] DIAGNOSIS. 99TH PERCENTILE = 51.4 PG/ML NOTE: HIGH-SENSITIVITY TROPONIN ASSAY IS NOT INTENDED TO BE USED IN ISOLATION BUT SHOULD BE INTERPRETED IN CONJUNCTION WITH OTHER DIAGNOSTIC AND CLINICAL INFORMATION. Performing Lab: see note ML - [facility] LB UA Micro, reflex to culture Reviewed date:04/22/2025 06:54:09 PM Interpretation: Performing Lab: Notes/Report: [facility] , Color Urine LT. YELLOW YELLOW Clarity Urine CLEAR CLEAR Specific Spray Urine 1.015 1.005-1.025 pH Urine 5.5 5.0-9.0 [...] SEEN NONE SEEN #/LPF Urine Culture Indicated YES-[facility] Performing Lab: see note ML - [facility] LB Urine Culture - [facility] Reviewed date:04/26/2025 08:14:27 PM Interpretation: Performing Lab: Notes/Report: [facility] , Urine Culture - [facility] See Below For Report Urine Culture - [facility] Testing performed at [facility] O:ECESBL Isolated Urine Culture - [facility] [place] Count Organism: 1.1 Antibiotic Interpretation AIDEN Status Urine Culture - [facility] [address], [place] [address] Urine Culture - [facility] Testing performed at [facility] O:ECESBL Isolated Urine Culture - [facility] [place] Count Organism: 1.1 Antibiotic Interpretation AIDEN Status Urine Culture - [facility] See Below For Report Urine Culture - [facility] Testing performed at [facility] O:ECESBL Isolated Urine Culture - [facility] [place] Count Organism: 1.1 Antibiotic Interpretation AIDEN Status Urine Culture - [facility] See Below For Report Urine Culture - [facility] Testing performed at [facility] O:ECESBL Isolated Urine Culture - [facility] [place] Count Organism: 1.1 Antibiotic Interpretation AIDEN Status Urine Culture - [facility] >100,000 Urine Culture - [facility] Testing performed at [facility] O:ECESBL Isolated Urine Culture - [facility] [place] Count Organism: 1.1 Antibiotic Interpretation AIDEN Status Urine Culture - [facility] See Below For Report Urine Culture - [facility] Testing performed at [facility] O:ECESBL Isolated Urine Culture - [facility] [place] Count Organism: 1.1 Antibiotic Interpretation AIDEN Status Urine Culture - [facility] Amikacin S F Urine Culture - [facility] Testing performed at [facility] O:ECESBL Isolated Urine Culture - [facility] [place] Count Organism: 1.1 Antibiotic Interpretation AIDEN Status Urine Culture - [facility] Amoxicillin/Clavula jocelyn S F Urine Culture - [facility] Testing performed at [facility] O:ECESBL Isolated Urine Culture - [facility] [place] Count Organism: 1.1 Antibiotic Interpretation AIDEN Status Urine Culture - [facility] Ampicillin R F Urine Culture - [facility] Testing performed at [facility] O:ECESBL Isolated Urine Culture - [facility] [place] Count Organism: 1.1 Antibiotic Interpretation AIDEN Status Urine Culture - [facility] Aztreonam R F Urine Culture - [facility] Testing performed at [facility] O:ECESBL Isolated Urine Culture - [facility] [place] Count Organism: 1.1 Antibiotic Interpretation AIDEN Status Urine Culture - [facility] Ceftazidime R F Urine Culture - [facility] Testing performed at [facility] O:ECESBL Isolated Urine Culture - [facility] [place] Count Organism: 1.1 Antibiotic Interpretation AIDEN Status Urine Culture - [facility] Ceftazidime/Avibact am S F Urine Culture - [facility] Testing performed at [facility] O:ECESBL Isolated Urine Culture - [facility] [place] Count Organism: 1.1 Antibiotic Interpretation AIDEN Status Urine Culture - [facility] Ceftolozane/Tazobac alvarez S F Urine Culture - [facility] Testing performed at [facility] O:ECESBL Isolated Urine Culture - [facility] [place] Count Organism: 1.1 Antibiotic Interpretation AIDEN Status Urine Culture - [facility] Ciprofloxacin R F Urine Culture - [facility] Testing performed at [facility] O:ECESBL Isolated Urine Culture - [facility] [place] Count Organism: 1.1 Antibiotic Interpretation AIDEN Status Urine Culture - [facility] Ertapenem S F Urine Culture - [facility] Testing performed at [facility] O:ECESBL Isolated Urine Culture - [facility] [place] Count Organism: 1.1 Antibiotic Interpretation AIDEN Status Urine Culture - [facility] Gentamicin R F Urine Culture - [facility] Testing performed at [facility] O:ECESBL Isolated Urine Culture - [facility] [place] Count Organism: 1.1 Antibiotic Interpretation AIDEN Status Urine Culture - [facility] Levofloxacin R F Urine Culture - [facility] Testing performed at [facility] O:ECESBL Isolated Urine Culture - [facility] [place] Count Organism: 1.1 Antibiotic Interpretation AIDEN Status Urine Culture - [facility] Meropenem S F Urine Culture - [facility] Testing performed at [facility] O:ECESBL Isolated Urine Culture - [facility] [place] Count Organism: 1.1 Antibiotic Interpretation AIDEN Status Urine Culture [facility] Meropenem/Vaborbactam S F Urine Culture - [facility] Testing performed at [facility] O:ECESBL Isolated Urine Culture - [facility] [place] Count Organism: 1.1 Antibiotic Interpretation AIDEN Status Urine Culture - [facility] Nitrofurantoin S F Urine Culture - [facility] Testing performed at [facility] O:ECESBL Isolated Urine Culture - [facility] [place] Count Organism: 1.1 Antibiotic Interpretation AIDNE Status Urine Culture - [facility] Tetracycline S F Urine Culture - [facility] Testing performed at [facility] O:ECESBL Isolated Urine Culture - [facility] [place] Count Organism: 1.1 Antibiotic Interpretation AIDEN Status Urine Culture [facility] Tigecycline S F Urine Culture - [facility] Testing performed at [facility] O:ECESBL Isolated Urine Culture - [facility] [place] Count Organism: 1.1 Antibiotic Interpretation AIDEN Status Urine Culture - [facility] Tobramycin R F Urine Culture - [facility] Testing performed at [facility] O:ECESBL Isolated Urine Culture - [facility] [place] Count Organism: 1.1 Antibiotic Interpretation AIDEN Status Urine Culture - [facility] Ampicillin/Sulbactam S F Urine Culture - [facility] Testing performed at [facility] O:ECESBL Isolated Urine Culture - [facility] [place] Count Organism: 1.1 Antibiotic Interpretation AIDEN Status Urine Culture - [facility] Cefazolin R F Urine Culture - [facility] Testing performed at [facility] O:ECESBL Isolated Urine Culture - [facility] [place] Count Organism: 1.1 Antibiotic Interpretation AIDEN Status Urine Culture - [facility] Cefepime R F Urine Culture - [facility] Testing performed at [facility] O:ECESBL Isolated Urine Culture - [facility] [place] Count Organism: 1.1 Antibiotic Interpretation AIDEN Status Urine Culture - [facility] Ceftriaxone R F Urine Culture - [facility] Testing performed at [facility] O:ECESBL Isolated Urine Culture - [facility] [place] Count Organism: 1.1 Antibiotic Interpretation AIDEN Status Urine Culture - [facility] Cefuroxime R F Urine Culture - [facility] Testing performed at [facility] O:ECESBL Isolated Urine Culture - [facility] [place] Count Organism: 1.1 Antibiotic Interpretation AIDEN Status Urine Culture - [facility] Piperacillin/Tazoba ctam S F Urine Culture - [facility] Testing performed at [facility] O:ECESBL Isolated Urine Culture - [facility] [place] Count Organism: 1.1 Antibiotic Interpretation AIDEN Status Urine Culture - [facility] Trimethoprim/Sulfa R F Urine Culture - [facility] Testing performed at [facility] O:ECESBL Isolated Urine Culture - [facility] [place] Count Organism: 1.1 Antibiotic Interpretation AIDEN Status Performing Lab: see note ML - [facility] 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 [facility] [place] [address] Patient Name: KYLAH ROBIN MRN: [id number] date: 1945 Sex: F Assigned Patient Location: ER Current Patient Location: ER Accession/Order Number: [id number] Exam Date: 04/21/2025 21:57 Report Date: 04/21/2025 [...] Grey M.D. 04/21/2025 9:58 PM Dictation Location: [place] [address] Electronically authenticated by: [id number] Y Date: 04/21/2025 21:58 Dictated By: Juan Grey M.D. Signed By: 04/21/252199 DD/ 57 TD/TT: Emergency Room Specialist: [place] [address] XRay Report Signed Patient: CINDI ROBIN MR#: [id number] : 1945 Acct:[id number] Age/Sex: 79 / F ADM Date: 04/21/25 Loc: ER Attending Dr: Ordering Physician: Dmitriy Lynne Date of Service: 04/21/25 Procedure(s): XR chest 1V Accession Number(s): [id number] cc: Dmitriy Lynne; Dhruv Rubi M.D. [place] [id number] Patient Name: KYLAH ROBIN MRN: [facility]:[id number] date: 1945 Sex: F Assigned Patient Location: ER Current Patient Loca tion: ER Accession/Order Numb er: [id number] Exam Date: 04/21/2025 21:57 Report Date: 04/21/2025 [...] Grey M.D. 04/21/2025 9:58 PM Dictation Location: [place] [address] Electronically authenticated by: [id number] Y Date: 04/21/2025 21:58 Dictated By: Juan Grey M.D. Signed By: 04/21/252199 DD/ 57 TD/TT: Emergency Room Specialist: Reason For Referral No Information Medications Medication SIG (Take, Route, Frequency, Duration) Notes Start Date End Date Status OneTouch Ultra 2 Act janet NovoLOG FlexPen 100 UNIT/ML 12 in mornin g, 16 at lunch, 22 at supper Subcutaneous Active OneTouch Ultra Test test blood glucose d aily for 90 days Active OneTouch Ultra Blue Active Allopurinol 300 MG 1 tablet Orally Once a day for 30 days Active Synvisc One 48 MG/6ML Inject Intra-artic ular In right knee for 180 days 04/20/2025 Active Accu-Chek [place] Plus w/Device as directed Active Pantoprazole Sodium 40 mg TAKE 1 TABLET BY MOUTH DAILY for 90 Active Carvedilol 25 mg TAKE 1 TABLET BY CHA TH TWICE DAILY (7AM and 7PM) WITH FOOD for 30 Active Aspirin 81 81 MG 1 tablet Orally Once a day Active Tresiba FlexTouch 100 UNIT/ML 30 units Subcutaneous Twice Daily Active cloNIDine HCl 0.1 MG 1 tablet every four hours as needed Orally Q4 for 30 days As needed Active Paxlovid (150/100) 10 x 150 MG & 10 x 100MG as directed Orally bid 05/03/2025 Ac tive Macrobid 100 MG 1 capsule with food Orally every 12 hrs for 5 day(s) 04/26/2025 Active Nitroglycerin 0.4 MG as directed Sublingual PRN Active Magnesium Oxide 400 MG 1 tablet Orally t hree times daily Active hydrALAZINE HCl 50 MG 1 tablet with food Orally Three times a day Active Ferrous Sulfate 325 (65 Fe) MG 1 tablet Orally Twice Daily Active Lancets Super Thin A ctive Isosorbide Mononitrate ER 120 MG 1 tablet Oral once daily for 30 days Active Levothyroxine Sodium 100 mcg TAKE 1 TABLET BY MOUTH IN THE MORNING ON AN EMPTY STOMACH for 90 Active Lasix 20 MG 1 tablet Orally Once a day Active Lipitor 80 MG 1 tablet Orally Once a day Active Liothyronine Sodium 5 mcg Take 1 tablet orally once daily for 30 days Active Ciprofloxacin HCl 500 MG 1 tablet Orally every 12 hrs for 10 days 05/24/2025 Active Azithromycin 250 MG 2 tabs today then 1 tab Orally daily for 5 days 05/03/2025 Active dexAMETHasone 6 MG 1 tablet Orally bebo y for 5 days 05/03/2025 Active Diflucan 100 MG 1 tablet Orally bebo y for 10 days 04/22/2025 Active Immunizations Vaccine Route Administration Date Status Comme nts Flu, Fluad (4117-7359) (28118) 65 yrs+, single-dose syringe IM Intramuscular 07/11/2023 Administered Flu, Fluad (89075) 65 yrs and older, single-dose syringe (1330-3049) IM Intramuscular 07/08/2024 Administered Social History Tobacco [...] Problem Status W/U Status Risk Notes Problem 244351464 Peripheral vascular disease, unspecified (I73.9) Active confirmed Problem 64403737 Age-related osteoporosis without current pathological fracture (M81.0) Active confirmed Problem 088838722 Chronic kidney disease, unspecified (N18.9) Active confirmed Problem 823977616 Anemia in chroni c kidney disease (D63.1) Active confirmed Problem Hypomagnesemia (562875430) Hypomagnesemia (E83.42) Active confirmed Problem Hyperkalemia (38273286) Hyperkalemia (E87.5) Active confirmed Problem Hypertensive heart failure (48641348) Hypertensive heart disease with heart failure (I11.0) Active confirmed Problem Unstable angina (0209867) Unstable angina (I20.0) Active confirmed Problem 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) Active confirmed Problem 116556343 Disorder of arteries and arterioles, unspecified (I77.9) Active confirmed Problem Osteoarthritis of knee (184568231) Unilateral primary osteoarthritis, left knee (M17.12) Active confirmed Problem Collapsed vertebra (02258305) Collapsed vertebra, not elsewhere classified, lumbar region, subsequent encounter for fracture with delayed healing (M48.56XG) Active confirmed Problem Chronic kidney disease stage 4 (027846115) Chronic kidney disease, stage 4 (severe) (N18.4) Active confirmed Problem Chest pain (96011233) Chest pain (R07.9) Active confirmed Problem Hyperlipidemia (20153860) Hyperlipidemia (E78.5) Active confirmed Problem Mitral regurgitation (78602328) Mitral regurgitation (I34.0) Active confirmed Problem Hypertension (15631322) Hypertension (I10) Active confirmed Problem Gastroesophageal reflux disease (468586228) GERD (gastroesophageal reflux disease) (K21.9) Active confirmed Problem Hypothyroidism (06665568) Hypothyroidism (E03.9) Active confirmed Problem Coronary artery disease (89383865) CAD (coronary artery disease) (I25.10) Active confirmed Problem Hypertension (36136605) HTN (hypertension) (I10) Active confirmed Problem Edema (24730933) Edema (R60.9) Active confirmed Problem Coronary artery disease (24557098) Coronary artery disease (I25.10) Active confirmed Problem Arthritis (1544673) Arthritis (M19.90) Active c onfirmed Problem Osteopenia (144657122) Osteopenia (M85.80) Active confirmed Problem Gout (80845023) Gout (M10.9) Active confirmed Problem Dyspnea (487799503) Dyspnea (R06.00) Active con firmed Problem Osteoarthritis of knee (290748701) Osteoarthritis of knee (M17.9) Active confirmed Problem Urinary tract infectious disease (42739109) UTI (urinary tract infection) (N39.0) Active confirmed Problem Paroxysmal atrial fibrillation (755867458) Paroxysmal atrial fibrillation (I48.0) Active confirmed Problem Acute sinusitis (65031614) Acute sinusitis (J01.90) Active confirmed Problem Allergic rhinitis (80504998) Allergic rhinitis (J30.9) Active confirmed Problem Diabetes mellitus type 2 (disorder) (87239147) DM2 (diabetes mellitus, type 2) (E11.9) Active confirmed Problem Long-term 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 (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.4) Active confirmed Problem Acute bronchitis (58227844) Acute bronchitis (J20.9) Active confirmed Problem Acquired hypothyroidism (725170394) Acquired hypothyroidism (E03.9) Active confirmed Problem Cellulitis (317522405) Cellulitis (L03.90) Active confirmed Problem Cataract (971185195) Cataract (H26.9) Active confirmed Problem Mitral insufficiency (00143255) Mitral insufficiency (I34.0) Active confirmed Problem Contact dermatitis (72172425) Contact dermatitis (L25.9) Active confirmed Problem Cervical arthritis (063790302) Cervical arthritis (M46.92) Active confirmed Problem Diabetic retinopathy (4722601) Diabetic retinopathy (E11.319) Active confirmed Problem 634503082 Low vitamin B12 level (E53.8) Active confirmed Problem Overweight (982705890) Over weight (E66.3) Active confirmed Problem Iron deficiency anemia (65429608) Anemia, iron deficiency (D50.9) Active confirmed Problem Ventricular hypertrophy (300605489) Ventricular hypertrophy (I51.7) Active confirmed Problem Primary hypothyroidism (61690455) Primary hypothyroidism (E03.9) Active confirmed Problem Iron deficiency anemia (91029693) Fe deficiency anemia (D50.9) Active confirmed Problem Hypertensive urgency (832173922) Hypertensive urgency (I10) Active confirmed Problem Vaginal discharge (230176961) Vaginal discharge (N89.8) Active confirmed Problem Type 2 diabetes mellitus with peripheral angiopathy (103666319) Diabetes mellitus type 2 with peripheral artery disease (E11.51) Active confirmed Problem At risk for falls (101003335) At risk for falls (Z91.81) Active confirmed Problem Mild nonproliferative retinopathy due to type 2 diabetes mellitus (787253112483938) Type 2 diabetes mellitus 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, 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) Active confirmed Problem Hypertensive urgency (219713179) Hypertensive urgency (I16.0) Active confirmed Problem Hypertensive emergency (761861841354729) Hypertensive emergency (I16.1) Active confirmed Problem Diabetic renal disease (618725791) 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) Active confirmed Problem Osteoarthritis of knee (522552465) Osteoarthritis of right knee (M17.11) Active confirmed Problem Diabetes mellitus (60788776) Diabetes mellitus (E11.9) Active confirmed Problem COVID-19 (994660099) COVID-19 (U07.1) Active confirmed Problem Chronic kidney disease stage 4 (679417389) Acute worsening of stage 4 chronic kidney disease (N18.4) Active confirmed Problem Pneumonia caused by Severe acute respiratory syndrome coronavirus (disorder) (036369639) Pneumonia due to Coronavirus disease 2019 (J12.82) Active confirmed Problem Low back pain (523799201) Low back pain, unspecified (M54.50) Active confirmed Problem Low back pain (finding) (741756284) Other low back pain (M54.59) Active confirmed Vital Signs Heart Rate 67 /min 12/31/2024 Oximetry 98 % 03/08/2025 Blood pressure diastolic 78 mm Hg 04/29/2025 Height 66 in 04/29/2025 Blood pressure systolic 164 mm Hg 04/29/2025 Weight 191.2 lbs 04/26/2025 BMI 30.86 kg/m2 04/26/2025 Encounters Encounter Location Date Provider Diagnosis [facility] [address] [place] [address] 11/18/2024 Jeff Hoy Paroxysmal atrial fibrillation I48.0 ; Chronic kidney disease, stage 4 (severe) N18.4 ; Acute worsening of stage 4 chronic kidney disease N18.4 ; Hypertensive heart disease with heart failure I11.0 and Chronic kidney disease due to diabetes mellitus E11.22 [facility] [address] [place] [address] 03/08/2025 Jeff Hoy Hypertension I10 ; Paroxysmal atrial fibrillation I48.0 and Diabetes mellitus type 2 with peripheral artery disease E11.51 [facility] [address] [place] [address] 11/24/2024 Jeff Hoy HTN (hypertension) I 10 [facility] [address] [place] [address] 04/14/2025 Jeff Hoy [facility] [address] [place] [address] 05/17/2025 Jeff Hoy Low vitamin B12 leve l E53.8 [facility] [address] [place] [address] 10/13/2024 Jeff Hoy Low vitamin B12 leve l E53.8 [facility] [address] [place] [address] 11/13/2024 Jeff Hoy Low vitamin B12 leve l E53.8 [facility] [address] [place] [address] 12/11/2024 Jeff Hoy Low vitamin B12 leve l E53.8 [facility] [address] [place] [address] 01/11/2025 Jeff Hoy Low vitamin B12 leve l E53.8 [facility] [address] [place] [address] 02/10/2025 Jeff Hoy Low vitamin B12 leve l E53.8 [facility] [address] [place] [address] 03/15/2025 Jeff Hoy Low vitamin B12 leve l E53.8 [facility] [address] [place] [address] 06/15/2024 Jeff Hoy Low vitamin B12 leve l E53.8 [facility] [address] [place] [address] 07/08/2024 Jeff Hoy Encounter for immuni zation Z23 [facility] [address] [place] [address] 08/10/2024 Jeff Hoy Low vitamin B12 leve l E53.8 [place] [address] [place] [address] 06/09/2024 Jeff Hoy Encounter for Medica re annual wellness exam Z00.00 and Age-related osteoporosis without current pathological fracture M81.0 [facility] [address] [place] [address] 04/29/2025 Jeff Hoy Hypertension I10 and Osteoarthritis of right knee M17.11 [address] [place] [address] 06/18/2024 Jeff Hoy Chest pain R07.9 and Hypertension I10 [address] [place] [address] 09/22/2024 Jeff Hoy Dyspnea R06.00 and A cute bronchitis J20.9 [facility] [address] [place] [address] 12/31/2024 Jeff Hoy Chest pain R07.9 ; Hypertension I10 ; Coronary artery disease I25.10 and Dyspnea R06.00 [facility] [address] [place] [address] 03/05/2025 Jeff Hoy Type 2 diabetes diony itus 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, bilateral E11.3293 [facility] [address] [place] [address] 04/26/2025 Jeff Hoy Hypertension I10 ; G ERD (gastroesophageal reflux disease) K21.9 and Type 2 diabetes mellitus 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, bilateral E11.3293 [facility] [address] [facility] [place] [address] 05/02/2025 Jeff Godwiny [facility] [address] [facility] [place] [address] 05/24/2025 Jeff Hoy [facility] [address] [facility] [place] [place] [address] 05/25/2025 Jeff Hoy Dysuria R30.0 [facility] [address] [facility] [place] [place] [address] 03/10/2025 Jeff Hoy [facility] [address] [facility] [place] [address] 04/13/2025 Jeff Hoy Right knee pain M25. 561 [facility] [address] [facility] [place] [address] 04/14/2025 Jeff Greyson [facility] [address] [facility] [place] [address] 04/22/2025 Jeff Hoy [facility] [address] [facility] [place] [address] 04/26/2025 Jeff Godwiny [facility] [address] [facility] [place] [address] 04/27/2025 Jeff Godwiny [facility] [address] [facility] [place] [address] 12/22/2024 Jeff Greyson [facility] [address] [facility] [place] [address] 01/18/2025 Jeff Godwiny [facility] [address] [facility] [place] [address] 01/18/2025 Jeff Godwiny [facility] [address] [facility] [place] [address] 02/16/2025 Jeff Hoy [facility] [address] [facility] [place] [place] [address] 03/03/2025 Jeff Hoy Right knee pain M25. 561 [facility] [address] [place] [address] 03/03/2025 Jeff mary [facility] [address] [facility] [place] [address] 09/04/2024 Jeff Hoy UTI (urinary tract infection) N39.0 [facility] [address] [facility] [place] [address] 09/04/2024 Jeff mary [facility] [address] [facility] [place] [address] 09/07/2024 Jeff Hoy UTI (urinary tract infection) N39.0 [facility] [place] [address] [facility] [place] [address] 11/24/2024 Jeff [facility] [address] [place] [address] 12/16/2024 Jeff Hoy Chronic kidney disea se, stage 4 (severe) N18.4 [facility] [address] [place] [address] 12/17/2024 Jeff Hoy Chronic kidney disea se, stage 4 (severe) N18.4 [facility] [address] [place] [address] 06/18/2024 Jeff [facility] [address] [place] [address] 06/26/2024 Jeff [facility] [address] [place] [address] 06/29/2024 Jeff [facility] [address] [facility] [place] [address] 08/14/2024 Jeff Connellyy [facility] [address] [facility] [place] [place] [address] 09/02/2024 Jeff [facility] [address] [facility] [place] [address] 09/02/2024 Jeff [facility] [address] [facility] [place] [address] 05/28/2024 Jeff Hoy Chest pain R07.9 ; Hypertension I10 ; Acute UTI N39.0 ; Chronic kidney disease, stage 4 (severe) N18.4 ; Hyperkalemia E87.5 and Anemia, unspecified D64.9 [facility] [address] [place] [address] 06/10/2024 Jeff Rubi Assessments Encounter Date Diagnosis (ICD Code) Assessment [...] vitamin B12 level (ICD-10 - E53.8) 06/09/2024 Age-related osteoporosis without current pathological fracture (ICD-10 - M81.0) 06/09/2024 Encounter for Medicare annual wellness exam (ICD-10 - Z00.00) 06/15/2024 Low vitamin B12 level (ICD-10 - [...] Osteoarthritis of right knee (ICD-10 - M17.11) 05/17/2025 Low vitamin B12 level (ICD-10 - E53.8) 11/18/2024 Chronic kidney disease, stage 4 (severe) (ICD-10 - N18.4) 11/18/2024 Paroxysmal atrial fibrillation (ICD-10 - I48.0) 05/28/2024 Chest pain (ICD-10 - R07.9) 05/28/2024 Hypertension (ICD-10 - I10) 09/04/2024 UTI (urinary tract infection) (ICD-10 - N39.0) 09/07/2024 UTI (urinary tract infection) (ICD-10 - N39.0) 12/16/2024 Chronic kidney disease, stage 4 (severe) (ICD-10 - N18.4) 12/17/2024 Chronic kidney disease, stage 4 (severe) (ICD-10 - N18.4) 03/03/2025 Right knee pain (ICD-10 - M25.561) 04/13/2025 Right knee pain (ICD-10 - M25.561) 05/25/2025 Dysuria (ICD-10 - R30.0) 05/28/2024 Acute UTI (ICD-10 - N39.0) 11/18/2024 Acute worsening of stage 4 chronic kidney disease (ICD-10 - N18.4) 04/26/2025 Type 2 diabetes mellitus 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, bilateral (ICD-10 - E11.3293) leavign sugars the same - doing well with eating mor consitently 03/08/2025 Diabetes mellitus type 2 with peripheral artery disease (ICD-10 - E11.51) 12/31/2024 Coronary artery disease (ICD-10 - I25.10) 11/18/2024 Hypertensive heart disease with heart failure [...] (URINALYSIS, COMPLETE) 07/23/2023 UA (URINALYSIS, COMPLETE) 07/23/2023 UA (URINALYSIS, COMPLETE) 05/25/2025 CBC WITH DIFF 06/18/2024 Urinalysis Microscopic 07/23/2023 Urinalysis Microscopic 06/18/2024 Urinalysis Microscopic 09/04/2024 Urine Culture 05/25/2025 Urine Culture 07/23/2023 Urine Culture 10/01/2023 Urine Culture 01/09/2024 Urine Culture 01/17/2024 URINE CULTURE 05/28/2024 URINE CULTURE 10/01/2023 URINALYSIS 10/01/2023 CMP - Comprehensive Metabolic Panel 05/08 CBC W/AUTO DIFF 05/28/2024 High Sensitivity Troponin 12/31/2024 [place]KA Ankle Brachial Index (24070) 024 BNP 06/18/2024 CULTURE URINE 06/18/2024 CULTURE [...] Coverage End Date [employer] MED[employer]ARE [address] [place] [id number] Lobito Kylah Self - patient is the insured 2 [...] 02/10/2025 1 mL Cyanocobalamin 03/15/2025 1 mL Cyanocobalamin 05/17/2025 1 mL Kenalog-40 04/30/2024 80 mg Synvisc [...] atrium mildly dilated Surgical History Surgery Date(Month/Year) Cataract OU Sinus surgery Bilat shoulder scope Open heart Gallbladder Hysterectomy Hospitalization History Reason Date(Month/Year) HTN 02/2024 hypertension 01/2024 Hypertension 12/2023 SEE ABOVE
--- OUTSIDE RECORDS SUMMARY | 2025-05-25 12:40 | XMS_ITS | Encounter Summary ---
Author Organization [facility] Address [address] [place] [address], [address] [place] [address] Care Team Providers Care Audio Visual Project Manager Name Role Phone Merrick Rubi MD Primary Care Provider [phone] Encounter Details Date Type Department Care Team (Late st Contact Info) Description 01/31/2016 Post-op Telephone [facility] General Surgery [address] [place], [place] [id number] Maryam Amador RN Social History Tobacco Use [...] on filedocumented in this encounter Care Teams Audio Visual Project Manager Relationship Specialty Start Date End Date Merrick Rubi MD [address] [place] [address] PCP - General 01/17/16 documented as of this encounter
--- OUTSIDE RECORDS SUMMARY | 2025-05-25 12:40 | XMS_ITS | Encounter Summary ---
[id number] [address] [place] [address] Care Team Providers Care Supervisor Color Making Name Role Phone Merrick Rubi MD Primary Care Provider [phone] Encounter Details Date Type Department Care Team (Late st Contact Info) Description 01/12/2021 Orders Only [facility] [address] [phone] External, Scanning Provider Social History Tobacco Use [...] often do you attend chur ch or yarsani services? More than 4 times per year 12/28/2020 Do you belong to any clubs o r organizations such as holiness groups, unions, fraternal or athletic groups, or [...] Answer Date Recorded Total Score 0 12/28/2020 [facility] [place] [facility] - Occupational Stress [...] Recorded Do you need help finding a [facility] career center and/or a training program? [...] as of this encounter Care Teams Supervisor Color Making Relationship Specialty Start Date End Date Merrick Rubi MD PCP - General Family Medicine 10/20/20 documented as of this encounter
--- OUTSIDE RECORDS SUMMARY | 2025-05-25 12:40 | XMS_ITS | Encounter Summary ---
Author Organization [facility] Address [facility] [id number] [address] [place] [address] Care Team Providers Care Tire Wrapper Name Role Phone Merrick Rubi MD Primary Care Provider [phone] Encounter Details Date Type Department Care Team (Late st Contact Info) Description 12/28/2020 Orders Only [facility] [address] [place] [phone] External, Scanning Provider Social History Tobacco Use [...] often do you attend chur ch or synagogue services? More than 4 times per year [...] Answer Date Recorded Total Score 0 12/28/2020 [facility] - Occupational [...] Recorded Do you need help finding a [facility] career center and/or a training [...] Multiple labs (11/18/2020) us Scanning Provider External IN IMAGING Final Result MANUALLY TRANSCRIBED RESULTS * Multiple labs (11/17/2020) us Scanning Provider External IN IMAGING Final Result Performing Organization Address [facility] Co de Phone Number MANUALLY TRANSCRIBED RESULTS documented in this encounter Visit Diagnoses Not on filedocumented in this encounter Additional Health Concerns Assessment Noted Time PHQ-9 Depression Total Score: 0 12/29/19 21 3:16 PM EDT documented as of this encounter Care Teams Tire Wrapper Relationship Specialty Start Date End Date Merrick Rubi MD PCP - General Family Medicine 10/20/20 documented as of this encounter
[2025-05-25 13:05] LABS: Glucose Urine UA NEGATIVE (NEGATIVE)
[2025-05-25 14:11] LABS: Crystals Seen? None Seen #/HPF (None Seen)
[2025-05-25 14:12] LABS: Cast Seen? NONE SEEN #/LPF (NONE SEEN); Urine Culture Indicated ALREADY ORDERED
--- OUTSIDE RECORDS SUMMARY | 2025-05-25 15:09 | XMS_ITS | CCD ---
Author Organization 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 Name Role Phone PHYSICIAN, DEFAULT Unavailable Unavailable [...] Unavailable Dhruv Rubi MD Primary Care Provider [phone] Dhruv Rubi MD Primary Care Provider [...] Unavailable Dhruv Rubi MD Primary Care Provider [phone] Dmitriy Lynne MD Attending Provider Dmitriy Lynne Attending Unavailable Dmitriy Lynne Admitting Unavailable Dhruv Rubi Primary Care Unavailable Allergies Allergy Classification Reported Allergen(s) Allergy Type Date of Onset Reaction(s) Facility (20 sources) amLODIPine; Translations: [AMLODIPINE] Drug Allergy 03-28-20 05 Unknown, [facility] Repository (20 sources) Amoxicillin / Clavulanate Drug Allergy 11-23-19 [facility] Other (20 sources) Contrast media Propensity to adverse reactions Unknown [facility] Other (2 sources) Doxazosin; Translations: [doxazosin] Drug Allergy Unknown [facility] Other (20 sources) Sulfamethoxazole / Trimethoprim Drug Allergy 11-23-19 [facility] Other (20 sources) Doxazosin; Translations: [DOXAZOSIN] Drug Allergy 11-23-19 21 Unknown, Rash [facility] Repository (9 sources) Amoxicillin / Clavulanate; Translations: [Augmentin] Drug Allergy 11-16-19 16 Unknown [facility] Repository (1 source) amLODIPine Drug Allergy 04-25-20 14 [facility] Repository (1 source) Sulfamethoxazole / Trimethoprim Drug Allergy 03-09-20 13 [facility] Repository (2 sources) Sulfamethoxazole / Trimethoprim; Translations: [SULFAMETHOXAZOLE-T RIMETHOPRIM] Drug Allergy 08-04-20 15 [facility] Repository (20 sources) IODINATED CONTRAST MEDIA; Translations: [IODINATED CONTRAST MEDIA] Propensity to adverse reactions to drug (disorder) 11-23-19 21 Other [facility] Repository (20 sources) AMOXICILLIN-POT CLAVULANATE; Translations: [AMOXICILLIN-POT CLAVULANATE] Propensity to adverse reactions to drug (disorder) 11-23-19 21 Unknown [facility]ository (20 sources) Amoxicillin Drug Allergy 03-12-20 Unknown [facility] (20 sources) Doxazosin Drug Allergy 03-12-20 Unknown [facility] (20 sources) Sulfamethoxazole; Translations: [SULFAMETHOXAZOLE] Allergy to substance 03-12-20 Unknown [facility] (20 sources) Trimethoprim Drug Allergy 03-12-20 Unknown [facility] (3 sources) Clavulanate; Translations: [clavulanic acid] Drug Allergy 01-15-20 Unknown Reaction [facility] (1 source) amLODIPine Drug Allergy 01-15-20 [facility] Repository (1 source) Amoxicillin Drug Allergy 01-15-20 [facility] Repository (1 source) Doxazosin Drug Allergy 01-15-20 [facility] Repository (1 source) Sulfamethoxazole Drug Allergy 01-15-20 [facility] Repository (1 source) Trimethoprim Drug Allergy 01-15-20 [facility] Repository Medications Current Medications Medication Drug Class(es) [...] coronary artery bypass graft , 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 , Paroxysmal atrial [...] (LIPITOR) 80 mg tablet Indications: 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 , H/O four [...] Orally every 12 hours Active epoetin johnna-epbx 32599 UNT/ML Injectable Solution [Retacrit] (14 sources) Retacrit 74489 U NIT/ML as directed Injection Active ferrous [...] ( ) take 2 tablets by mo [facility] every twenty-four hours Liothyronine Sodium 5 MCG [...] For Her 50 + - Orally Active iszvtxmnipch-stft-hvgavvwk-f olic acid (Centrum) chewable tablet (20 sources) multivitamin-iro m-eomldjap-tackv acid (Centrum) chewable tablet Chew 1 tablet Daily Active multivitamin-iro z-etjhxpyl-urbip acid (Centrum) chewable tablet Chew 1 tablet [...] not crush, chew, or split. Active retacrit 49166 unit/ml solution (5 sources) Retacrit 39215 U NIT/ML as directed Injection Active Sennosides-Docusate [...] L Take by mouth daily. 0 Active Gyhcrdrmshfd-Gbot-Ikash Acid (Centrum) 18-400 mg-mcg Tablet (2 sources) Start: 10-09-2019 End: 06-15-2024 take 1 tablet by mouth once daily Feezlhmiuswx-Ricp-Oezpy Acid (Centrum) 18-400 mg-mcg Tablet Discontinued 1 [...] angina pectoris; Translations: [Atherosclerotic heart disease of [place] coronary artery without angina pectoris] Onset: 1 [...] sources) Long-term 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; Translations: [retirement (current) use of insulin] 07-13-2024 Episodic Other [...] Nom (U) ORGANISM: Escherichia coli (ESBL) (O:ESCCOLESBL) [place] Count >100,000 Aerobic AIDEN Charge (NMIC56) ------ [...] RESISTANT TO ALL B-LACTAM DRUGS. PERFORMED BY: [facility] [address] [place] [address] PATHOLOGIST MANAGER OB CINTIA GLASGOW M.D. Normal [facility] Comment on above: Performed By: #### C UU #### [facility] [address] No Panel Informationon 03-23 [facility] Office Visiton 02-25-2025 Follow-up visit [id number] Garima Robine 1945 F Date Provider Department Center 02/25/2025 Yassine-STEFANO CATHERINE ANNIA Stacy Family History Family history unknown: Yes Level of Service:85561 [place] OFFICE/OUTPATIENT ESTABLISHED MOD MDM 30 MIN Normal [facility] Glucose (Bld) [Mass/Vol]on 0 02-15-2025 Glucose Blood, POC 238 mg/dL [facility] Laboratory - Hematology and Cell countson 02-15-2025 HbA1c (Bld) [Mass fraction] 6.6 % [facility] No Panel Informationon 02-15 [facility] Erythrocyte distribution wid th Auto (RBC) [Ratio]on 01-05-2025 Erythrocyte distribution width (RBC) [Ratio] Erythrocyte distribution width [Ratio] by Automated count High 11.0-15.0 [facility] Estimated glomerular filtrat ion rate (GFR) non- Americanon 01-05-2025 GFR/1.73 sq M.predicted among non-blacks MDRD (S/P/Bld) [Vol rate/Area] Estimated glomerular filtration rate (GFR) non- Low >=60 mL/min/1.73m 2 [facility] Hematocrit Auto (Bld) [Volum e fraction]on 01-05-2025 Hematocrit (Bld) [Volume fraction] Hematocrit [Volume Fraction] of Blood by Automated count Low 36.0-48.0 [facility] Hemoglobin [Mass/volume] in Bloodon 01-05-2025 Hemoglobin (Bld) [Mass/Vol] Hemoglobin [Mass/volume] in Blood Low 12.0-16.0 [facility] Iron binding capacity [Mass/ volume] in Serum or Plasmaon 01-05-2025 Iron binding capacity [Mass/Vol] Iron binding capacity [Mass/volume] in Serum or Plasma Low 250.0-450.0 [facility] Iron saturation [Mass Fracti on] in Serum or Plasmaon 01-05-2025 Iron saturation [Mass fraction] Iron saturation [Mass Fraction] in Serum or Plasma [facility] Laboratory - Chemistry and C hemistry - challengeon 01-05-2025 Albumin [Mass/Vol] 3.3 g/dL Low 3.4-5.0 [facility] Calcium [Mass/Vol] 9.2 mg/dL 8.5-10.1 [facility] Chloride [Moles/Vol] 105 mmol/L 98-107 [facility] CO2 [Moles/Vol] 24.4 mmol/L 21.0-32.0 [facility] Creatinine [Mass/Vol] 1.89 mg/dL High 0.55-1.02 [facility] Ferritin [Mass/Vol] 499.0 ng/mL High 8.0-252.0 [facility] GFR/1.73 sq M.predicted MDRD (S/P/Bld) [Vol rate/Area] 31 mL/min/{1.73_m2} Low >=60 mL/min/1.73m 2 [facility] Glucose [Mass/Vol] 122 mg/dL High 74-106 [facility] Iron [Mass/Vol] 69.0 ug/dL 50.0-170.0 [facility] Magnesium [Mass/Vol] 1.9 mg/dL 1.8-2.4 [facility] Potassium [Moles/Vol] 4.7 mmol/L 3.5-5.1 [facility] Sodium [Moles/Vol] 141 mmol/L 136-145 [facility] Urate [Mass/Vol] 3.9 mg/dL 2.6-6.0 [facility] Urea nitrogen [Mass/Vol] 35.0 mg/dL High 7.0-18.0 [facility] Urea nitrogen/Creatinine [Mass ratio] 18.5 mg/mg [facility] Laboratory - Urinalysison Protein (U) [Mass/Vol] 108.9 mg/dL High <=11.9 [facility] Leukocytes [#/volume] correc jean for nucleated erythrocytes in Blood by Automated counon 01-05-2025 WBC corrected for nucl RBC Auto (Bld) [#/Vol] Leukocytes [#/volume] corrected for nucleated erythrocytes in Blood by Automated coun 4.0-11.0 [facility] MCH Auto (RBC) [Entitic mass ]on 01-05-2025 MCH (RBC) [Entitic mass] MCH [Entitic mass] by Automated count 26.7-34.0 [facility] MCHC Auto (RBC) [Mass/Vol]on 01-05-2025 MCHC (RBC) [Mass/Vol] MCHC [Mass/volume] by Automated count 29.9-35.2 [facility] MCV Auto (RBC) [Entitic vol] on 01-05-2025 MCV (RBC) [Entitic vol] MCV [Entitic volume] by Automated count 81.0-99.0 [facility] No Panel Informationon 01-05 Urine Random Creatinine 157.18 mg/dL 20.00-300. 00 [facility] 25-Hydroxy Vitamin D Total 30.9 ng/mL [facility] Comment on above: <20 ng/mL Vit D defi cient20-<30 ng/mL Vit D gmvdxrrfohyj56-645 ng/mL Vit D sufficient>100 ng/mL Potential Toxicity Parathyroid Hormone (Intact) 73 pg/mL Abnormal 15-65 [facility] Comment on above: Performed at: - [address] [id number] Director: Ashok Benson PhD, Phone: [phone] Phosphorus Level 3.8 mg/dL 2.6-4.7 [facility] Platelet mean volume Auto (B ld) [Entitic vol]on 01-05-2025 Platelet mean volume (Bld) [Entitic vol] Platelet mean volume [Entitic volume] in Blood by Automated count Low 9.5-13.5 [facility] Platelets Auto (Bld) [#/Vol] on 01-05-2025 Platelets (Bld) [#/Vol] Platelets [#/volume] in Blood by Automated count 150-450 [facility] RBC Auto (Bld) [#/Vol]on RBC (Bld) [#/Vol] Erythrocytes [#/volume] in Blood by Automated count Low 4.20-5.40 [facility] Serum or plasma anion gap de terminationon 01-05-2025 Anion gap [Moles/Vol] Serum or plasma anion gap determination [facility] Urine protein/creatinine rat ioon 01-05-2025 Protein/Creatinine (U) [Ratio] Urine protein/creatinine ratio [facility] Office Visiton 11-27-2024 Follow-up visit [id number] Kylah Robin 1945 F Date Provider Department Center 11/27/2024 [id number] YOON Family History Family history unknown: Yes Level of Service:38164 [place] OFFICE/OUTPATIENT ESTABLISHED MOD MDM 30 MIN Normal [facility] Glucose (Bld) [Mass/Vol]Orde red By: Maria Antonia Mo on 11-16-2024 Glucose Blood, POC 220 mg/dL [facility] - Hematology and Cell countson 11-16-2024 HbA1c (Bld) [Mass fraction] 7 % [facility] No Panel InformationOrdered By: Maria Antonia Mo on 11-16-2024 [facility] Glucose (Bld) [Mass/Vol]Orde red By: Maria Antonia Mo on 07-13-2024 Glucose Blood, POC 180 mg/dL [facility] No Panel Informationon 05-25 Type of biopsy: [...] Specimen sent for: H&E Photo taken yes [facility] No Panel InformationOrdered By: Philomena Salter on 05-25-2024 [facility] Office Visiton 05-11-2024 Follow-up visit [id number] Kylah Robin 1945 F Date Provider Department Center 05/11/2024 Yassine-STEFANO CATHERINE [facility] No family history on file Level of Service:87525 [place] OFFICE/OUTPATIENT ESTABLISHED MOD MDM 30 MIN Normal [facility]ATELon 2022 Hematocrit (Bld) [Volume fraction] 28.8 % Critically low 36.0-48.0 [facility] Comment on above: Performed By: #### H H #### [facility] [address] [place] [address] Dr. Ember Teague Hemoglobin (Bld) [Mass/Vol] 9.6 g/dL Critically low 12.0-16.0 [facility] Comment on above: Performed By: #### H H #### [facility] [address] [place] [address] Dr. Ember Teague MCH (RBC) [Entitic mass] 30.7 pg Normal 26.7-34.0 [facility] Comment on above: Performed By: #### H H #### [facility] [address] [place] [address] Dr. Ember Teague MCHC (RBC) [Mass/Vol] 33.3 g/dL Normal 29.9-35.2 [facility] Comment on above: Performed By: #### H H #### [facility] [address] [place] [address] Dr. Ember Teague MCV (RBC) [Entitic vol] 92.0 fL Normal 81.0-99.0 [facility] Comment on above: Performed By: #### H H #### [facility] [address] [place] [address] Dr. Ember Teague PLT 214 103/ul Normal 150-450 [facility] Comment on above: Performed By: #### H H #### [facility] [address] [place] [address] Dr. Ember Teague RBC 3.13 106/ul Critically low 4.20-5.40 [facility] Comment on above: Performed By: #### H H #### [facility] [address] [place] [address] Dr. Ember Teague WBC 7.4 103/ul Normal 4.0-11.0 [facility] Comment on above: Performed By: #### H H #### [facility] [address] [place] [address] Dr. Ember Teague MAGNESIUMon 01-22-2023 Magnesium [Mass/Vol] 1.8 mg/dL Normal 1.8-2.4 [facility] Comment on above: Performed By: #### M G, RENAL #### [facility] [address] [place] [address] Dr. Ember Teague RENAL FUNCTION PANELon 01-22 Albumin [Mass/Vol] 3.6 g/dL Normal 3.4-5.0 [facility] Comment on above: Performed By: #### M G, RENAL #### [facility] [address] [place] [address] Dr. Ember Teague Calcium [Mass/Vol] 9.7 mg/dL Normal 8.5-10.1 [facility] Comment on above: Performed By: #### M G, RENAL #### [facility] [address] [place] [address] Dr. Ember Teague Chloride [Moles/Vol] 105 mmol/L Normal 98-107 [facility] Comment on above: Performed By: #### M G, RENAL #### [facility] [address] [place] [address] Dr. Ember Teague CO2 [Moles/Vol] 22.6 mmol/L Normal 21.0-32.0 [facility] Comment on above: Performed By: #### M G, RENAL #### [facility] [address] [address] [address] Ember Teague Creatinine [Mass/Vol] 2.18 mg/dL Critically high 0.55-1.02 [facility] Comment on above: Performed By: #### M G, RENAL #### [facility] [address] [address] [address] Ember Teague EGFR-AF TOGOLESE 26 mL/min/1.73m2 Critically low >=60 [facility] Comment on above: Performed By: #### M G, RENAL #### [facility] [address] [address] [address] Ember Teague EGFR-NON AF TOGOLESE 22 mL/min/1.73m2 Critically low >=60 [facility] Comment on above: Performed By: #### Lico Stout, RENAL #### [facility] [address] [address] [address] Ember Teague Glucose [Mass/Vol] 134 mg/dL Critically high 74-106 [facility] Comment on above: Performed By: #### M G, RENAL #### [facility] [address] [address] [address] Ember Teague Phosphate [Mass/Vol] 4.6 mg/dL Normal 2.6-4.7 [facility] Comment on above: Performed By: #### M G, RENAL #### [facility] [address] [address] [address] Ember Teague Potassium [Moles/Vol] 5.1 mmol/L Normal 3.5-5.1 [facility] Comment on above: Performed By: #### M G, RENAL #### [facility] [address] [address] [address] Ember Teague Sodium [Moles/Vol] 138 mmol/L Normal 136-145 [facility] Comment on above: Performed By: #### M G, RENAL #### [facility] [address] [address] [address] Ember Teague Urea nitrogen [Mass/Vol] 61.0 mg/dL Critically high 7.0-18.0 [facility] Comment on above: Performed By: #### M G, RENAL #### [facility] [address] [place], [place] [address] Dr. Ember Teague MG MAMM SCREEN 3D MAY CADon 12-17-2022 MG MAMM SCREEN 3D MAY CAD Patient: KYLAH ROBIN Exam Date: 12/17/2022 : 1945 Gender:F Ordering : DR DHRUV RUBI . Admission #: [id number] Family : Order #: [id number] CLICK HERE TO VIEW EXAM RADIOLOGY REPORT [...] lung cancer at age 61. LOCATION: [facility] BREAST COMPOSITION: Scattered areas fibroglandular [...] MD on 12/17/2022 at 11:59 Normal [facility] FERRITINon 12-10-2022 Ferritin [Mass/Vol] 681.0 ng/mL Critically high 8.0-252.0 [facility] Comment on above: Performed By: #### P THINT #### [facility] [address] [address] [address] Ember Teague HEMOGRAM AND PLATELon 2022 Hematocrit (Bld) [Volume fraction] 27.1 % Critically low 36.0-48.0 [facility] Comment on above: Performed By: #### C VDTBH #### [facility] [address] [place] [address] Dr. Ember Teague Hemoglobin (Bld) [Mass/Vol] 9.7 g/dL Critically low 12.0-16.0 [facility] Comment on above: Performed By: #### C VDTBH #### [facility] [address] [place] [address] Dr. Ember Teague MCH (RBC) [Entitic mass] 31.4 pg Normal 26.7-34.0 [facility] Comment on above: Performed By: #### C VDTBH #### [facility] [address] [place] [address] Dr. Ember Teague MCHC (RBC) [Mass/Vol] 35.8 g/dL Critically high 29.9-35.2 [facility] Comment on above: Performed By: #### C VDTBH #### [facility] [address] [place] [address] Dr. Ember Teague MCV (RBC) [Entitic vol] 87.7 fL Normal 81.0-99.0 [facility] Comment on above: Performed By: #### C VDTBH #### [facility] [address] [place] [address] Dr. Ember Teague PLT 218 103/ul Normal 150-450 [facility] Comment on above: Performed By: #### C VDTBH #### [facility] [address] [place] [address] Dr. Ember Teague RBC 3.09 106/ul Critically low 4.20-5.40 [facility] Comment on above: Performed By: #### C VDTBH #### [facility] [address] [place] [address] Dr. Ember Teague WBC 6.6 103/ul Normal 4.0-11.0 [facility] Comment on above: Performed By: #### C VDTBH #### [facility] [address] [address] [address] Ember Teague IRON AND TIBCon 12-10-2022 % SATURATION 30.2 % Normal [facility] Comment on above: Performed By: #### P THINT #### [facility] [address] [address] [address] Ember Teague Iron [Mass/Vol] 84.0 ug/dL Normal 50.0-170.0 [facility] Comment on above: Performed By: #### P THINT #### [facility] [address] [address] [address] Ember Teague TIBC DIRECT 278.0 ug/dL Normal 250.0-450.0 [facility] Comment on above: Performed By: #### P THINT #### [facility] [address] [place] [address] Dr. Ember Teague XR FOOT MAY MIN [...] BENI APARICIO Date: 2022-11-20 14:03 Normal [facility] HEMOGRAM AND PLATELon 2022 Hematocrit (Bld) [Volume fraction] 27.7 % Critically low 36.0-48.0 [facility] Comment on above: Performed By: #### R ENAL #### [facility] [address] [place] [address] Dr. Ember Teague Hemoglobin (Bld) [Mass/Vol] 10.0 g/dL Critically low 12.0-16.0 [facility] Comment on above: Performed By: #### R ENAL #### [facility] [address] [place] [address] Dr. Ember Teague MCH (RBC) [Entitic mass] 31.6 pg Normal 26.7-34.0 [facility] Comment on above: Performed By: #### R ENAL #### [facility] [address] [place] [address] Dr. Ember Teague MCHC (RBC) [Mass/Vol] 36.1 g/dL Critically high 29.9-35.2 [facility] Comment on above: Performed By: #### R ENAL #### [facility] [address] [place] [address] Dr. Ember Teague MCV (RBC) [Entitic vol] 87.7 fL Normal 81.0-99.0 [facility] Comment on above: Performed By: #### R ENAL #### [facility] [address] [place] [address] Dr. Ember Teague PLT 182 103/ul Normal 150-450 [facility] Comment on above: Performed By: #### R ENAL #### [facility] [address] [place] [address] Dr. Ember Teague RBC 3.16 106/ul Critically low 4.20-5.40 [facility] Comment on above: Performed By: #### R ENAL #### [facility] [address] [place] [address] Dr. Ember Teague WBC 6.8 103/ul Normal 4.0-11.0 [facility] Comment on above: Performed By: #### R ENAL #### [facility] [address] [place] [address] Dr. Ember Teague PROF CHEM 8 (BAS METB)on Anion gap [Moles/Vol] 17.6 mmol/L Normal [facility] Comment on above: Performed By: #### C VDTBH #### [facility] [address] [place] [address] Dr. Ember Teague Calcium [Mass/Vol] 9.0 mg/dL Normal 8.5-10.1 [facility] Comment on above: Performed By: #### C VDTBH #### [facility] [address] [address] [address] Ember Teague Chloride [Moles/Vol] 104 mmol/L Normal 98-107 [facility] Comment on above: Performed By: #### C VDTBH #### [facility] [address] [address] [address] Ember Teague CO2 [Moles/Vol] 22.2 mmol/L Normal 21.0-32.0 [facility] Comment on above: Performed By: #### C VDTBH #### [facility] [address] [place] [address] Dr. Ember Teague Creatinine [Mass/Vol] 2.03 mg/dL Critically high 0.55-1.02 [facility] Comment on above: Performed By: #### C VDTBH #### [facility] [address] [place] [address] Dr. Ember Teague EGFR-AF TOGOLESE 29 mL/min/1.73m2 Critically low >=60 [facility] Comment on above: Performed By: #### C VDTBH #### [facility] [address] [place] [address] Dr. Ember Teague EGFR-NON AF TOGOLESE 24 mL/min/1.73m2 Critically low >=60 [facility] Comment on above: Performed By: #### C VDTBH #### [facility] [address] [place] [address] Dr. Ember Teague Glucose [Mass/Vol] 154 mg/dL Critically high 74-106 [facility] Comment on above: Performed By: #### C VDTBH #### [facility] [address] [place] [address] Dr. Ember Teague Potassium [Moles/Vol] 4.8 mmol/L Normal 3.5-5.1 [facility] Comment on above: Performed By: #### C VDTBH #### [facility] [address] [address] [address] Ember Teague Sodium [Moles/Vol] 139 mmol/L Normal 136-145 [facility] Comment on above: Performed By: #### C VDTBH #### [facility] [address] [address] [address] Ember Teague Urea nitrogen [Mass/Vol] 43.0 mg/dL Critically high 7.0-18.0 [facility] Comment on above: Performed By: #### C VDTBH #### [facility] [address] [address] [address] Ember Teague Urea nitrogen/Creatinine [Mass ratio] 21.2 mg/mg Normal [facility] Comment on above: Performed By: #### C VDTBH #### [facility] [address] [place] [address] Dr. Ember Teague CULTURE SPUTUMon 10-24-2022 CULTURE SPUTUM Culture Observations: Beta lactamase positive Isolate 1 Haemophilus influenzae Moderate growth of Normal [facility] Comment on above: Performed By: #### R ENAL #### [facility] [address] [address] [address] Ember Teague SPUTUM GRAM STAINon 10-24-19 23 COMMENTS Normal [facility] Comment on above: Performed By: #### R ENAL #### [facility] [address] [place] [address] Dr. Ember Teague DIPHTHEROIDS Normal [facility] Comment on above: Performed By: #### R ENAL #### [facility] [address] [address] [address] Ember Teague EPITHELIALS >25 Normal [facility] Comment on above: Performed By: #### R ENAL #### [facility] [address] [address] [address] Ember Tegaue FUNGAL ELEMENTS Normal [facility] Comment on above: Performed By: #### R ENAL #### [facility] [address] [place] [address] Dr. Ember Teague GRAM NEG BACILLI Normal [facility] Comment on above: Performed By: #### R ENAL #### [facility] [address] [address] [address] Ember Teague GRAM NEG DIPPLOCOCCI FEW Normal [facility] Comment on above: Performed By: #### R ENAL #### [facility] [address] [address] [address] Ember Teague GRAM POS BACILLI FEW Normal [facility] Comment on above: Performed By: #### R ENAL #### [facility] [address] [address] [address] Ember Teague GRAM POSITIVE COCCI MANY Normal [facility] Comment on above: Performed By: #### R ENAL #### [facility] [address] [place] [address] Dr. Ember Teague WBC (Bld) [#/Vol] 10*3/uL Normal [facility] Comment on above: Performed By: #### R ENAL #### [facility] [address] [place] [address] Dr. Ember Teague XR CHEST 2 Von [...] ANGELINA BRISENO Date: 2022-10-24 16:22 Normal [facility] FERRITINon 09-18-2022 Ferritin [Mass/Vol] 612.0 ng/mL Critically high 8.0-252.0 [facility] Comment on above: Performed By: #### F ERR, FETIBC #### [facility] [address] [place] [address] Dr. Ember Teague HEMOGRAM AND PLATELon 2021 Hematocrit (Bld) [Volume fraction] 28.1 % Critically low 36.0-48.0 [facility] Comment on above: Performed By: #### C BC #### [facility] [address] [place] [address] Dr. Ember Teague Hemoglobin (Bld) [Mass/Vol] 9.7 g/dL Critically low 12.0-16.0 [facility] Comment on above: Performed By: #### C BC #### [facility] [address] [place] [address] Dr. Ember Teague MCH (RBC) [Entitic mass] 31.3 pg Normal 26.7-34.0 [facility] Comment on above: Performed By: #### C BC #### [facility] [address] [place] [address] Dr. Ember Teague MCHC (RBC) [Mass/Vol] 34.5 g/dL Normal 29.9-35.2 [facility] Comment on above: Performed By: #### C BC #### [facility] [address] [place] [address] Dr. Ember Teague MCV (RBC) [Entitic vol] 90.6 fL Normal 81.0-99.0 [facility] Comment on above: Performed By: #### C BC #### [facility] [address] [place] [address] Dr. Ember Teague PLT 183 103/ul Normal 150-450 [facility] Comment on above: Performed By: #### C BC #### [facility] [address] [place] [address] Dr. Ember Teague RBC 3.10 106/ul Critically low 4.20-5.40 [facility] Comment on above: Performed By: #### C BC #### [facility] [address] [place] [address] Dr. Ember Teague WBC 7.2 103/ul Normal 4.0-11.0 [facility] Comment on above: Performed By: #### C BC #### [facility] [address] [place] [address] Dr. Ember Teague IRON AND TIBCon 09-18-2022 % SATURATION 36.0 % Normal [facility] Comment on above: Performed By: #### F ERR, FETIBC #### [facility] [address] [address] [address] Ember Teague Iron [Mass/Vol] 77.0 ug/dL Normal 50.0-170.0 [facility] Comment on above: Performed By: #### F ERR, FETIBC #### [facility] [address] [address] [address] Ember Teague TIBC DIRECT 214.0 ug/dL Critically low 250.0-450.0 [facility] Comment on above: Performed By: #### F ERR, FETIBC #### [facility] [address] [address] [address] Ember Teague RENAL FUNCTION PANELon 09-18 Albumin [Mass/Vol] 3.7 g/dL Normal 3.4-5.0 [facility] Comment on above: Performed By: #### R ENAL #### [facility] [address] [address] [address] Ember Teague Calcium [Mass/Vol] 9.5 mg/dL Normal 8.5-10.1 [facility] Comment on above: Performed By: #### R ENAL #### [facility] [address] [address] [address] Ember Teague Chloride [Moles/Vol] 103 mmol/L Normal 98-107 [facility] Comment on above: Performed By: #### R ENAL #### [facility] [address] [address] [address] Ember Teague CO2 [Moles/Vol] 21.1 mmol/L Normal 21.0-32.0 [facility] Comment on above: Performed By: #### R ENAL #### [facility] [address] [address] [address] Ember Teague Creatinine [Mass/Vol] 1.85 mg/dL Critically high 0.55-1.02 [facility] Comment on above: Performed By: #### R ENAL #### [facility] [address] [address] [address] Ember Teague EGFR-AF TOGOLESE 32 mL/min/1.73m2 Critically low >=60 [facility] Comment on above: Performed By: #### R ENAL #### [facility] [address] [address] [address] Ember Teague EGFR-NON AF TOGOLESE 26 mL/min/1.73m2 Critically low >=60 [facility] Comment on above: Performed By: #### R ENAL #### [facility] [address] [address] [address] Ember Teague Glucose [Mass/Vol] 183 mg/dL Critically high 74-106 [facility] Comment on above: Performed By: #### R ENAL #### [facility] [address] [address] [address] Ember Teague Phosphate [Mass/Vol] 3.7 mg/dL Normal 2.6-4.7 [facility] Comment on above: Performed By: #### R ENAL #### [facility] [address] [address] [address] Ember Teague Potassium [Moles/Vol] 4.9 mmol/L Normal 3.5-5.1 [facility] Comment on above: Performed By: #### R ENAL #### [facility] [address] [address] [address] Ember Teague Sodium [Moles/Vol] 138 mmol/L Normal 136-145 [facility] Comment on above: Performed By: #### R ENAL #### [facility] [address] [address] [address] Ember Teague Urea nitrogen [Mass/Vol] 40.0 mg/dL Critically high 7.0-18.0 [facility] Comment on above: Performed By: #### R ENAL #### [facility] [address] [address] [address] Ember Teague CULTURE URINEon 09-15-2022 CULTURE [...] F Trimethoprim/Sulfam ethoxazole <=20 S F Normal [facility] Comment on above: Performed By: #### R ENAL #### [facility] [address] [place] [address] Dr. Ember Teague BNPon 09-11-2022 Natriuretic peptide B (Bld) [Mass/Vol] 408.0 pg/mL Normal <=1,800.0 [facility] Comment on above: Performed By: #### P THINT #### [facility] [address] [place] [address] Dr. Ember Teague CBC AUTO DIFFon 09-11-2022 BASO # 0.0 103/ul Normal 0.0-0.1 [facility] Comment on above: Performed By: #### C BC #### [facility] [address] [place] [address] Dr. Ember Teague Basophils/100 WBC (Bld) 0.3 % Normal 0.2-2.0 [facility] Comment on above: Performed By: #### C BC #### [facility] [address] [place] [address] Dr. Ember Teague EO # 0.1 103/ul Normal 0.0-0.7 [facility] Comment on above: Performed By: #### C BC #### [facility] [address] [place] [address] Dr. Ember Teague Eosinophils/100 WBC (Bld) 1.9 % Normal 0.9-7.0 [facility] Comment on above: Performed By: #### C BC #### [facility] [address] [place] [address] Dr. Ember Teague Erythrocyte distribution width (RBC) [Ratio] 15.2 % Critically high 11.0-15.0 [facility] Comment on above: Performed By: #### C BC #### [facility] [address] [place] [address] Dr. Ember Teague Hematocrit (Bld) [Volume fraction] 26.6 % Critically low 36.0-48.0 [facility] Comment on above: Performed By: #### C BC #### [facility] [address] [place] [address] Dr. Ember Teague Hemoglobin (Bld) [Mass/Vol] 9.0 g/dL Critically low 12.0-16.0 [facility] Comment on above: Performed By: #### C BC #### [facility] [address] [place] [address] Dr. Ember Teague IG # 0.02 10e3/ul Normal 0.00-0.03 [facility] Comment on above: Performed By: #### C BC #### [facility] [address] [place] [address] Dr. Ember Teague IG % 0.3 % Normal 0.0-0.5 [facility] Comment on above: Performed By: #### C BC #### [facility] [address] [place] [address] Dr. Ember Teague LYMPH # 1.9 103/ul Normal 1.2-3.8 [facility] Comment on above: Performed By: #### C BC #### [facility] [address] [place] [address] Dr. Ember Teague Lymphocytes/100 WBC (Bld) 32.4 % Normal 20.5-60.0 [facility] Comment on above: Performed By: #### C BC #### [facility] [address] [place] [address] Dr. Ember Teague MANUAL DIFF REQ NO Normal [facility] Comment on above: Performed By: #### C BC #### [facility] [address] [place] [address] Dr. Ember Teague MCH (RBC) [Entitic mass] 31.1 pg Normal 26.7-34.0 [facility] Comment on above: Performed By: #### C BC #### [facility] [address] [place] [address] Dr. Ember Teague MCHC (RBC) [Mass/Vol] 33.8 g/dL Normal 29.9-35.2 [facility] Comment on above: Performed By: #### C BC #### [facility] [address] [place] [address] Dr. Ember Teague MCV (RBC) [Entitic vol] 92.0 fL Normal 81.0-99.0 [facility] Comment on above: Performed By: #### C BC #### [facility] [address] [place] [address] Dr. Ember Teague MONO # 0.6 103/ul Normal 0.3-0.8 [facility] Comment on above: Performed By: #### C BC #### [facility] [address] [place] [address] Dr. Ember Teague Monocytes/100 WBC (Bld) 10.0 % Normal 1.7-12.0 [facility] Comment on above: Performed By: #### C BC #### [facility] [address] [place] [address] Dr. Ember Teague NEUT # 3.2 103/ul Normal 1.4-6.5 [facility] Comment on above: Performed By: #### C BC #### [facility] [address] [place] [address] Dr. Ember Teague Neutrophils/100 WBC (Bld) 55.1 % Normal 43.0-75.0 [facility] Comment on above: Performed By: #### C BC #### [facility] [address] [place] [address] Dr. Ember Teague Platelet mean volume (Bld) [Entitic vol] 9.4 fL Critically low 9.5-13.5 [facility] Comment on above: Performed By: #### C BC #### [facility] [address] [place] [address] Dr. Ember Teague PLT 196 103/ul Normal 150-450 [facility] Comment on above: Performed By: #### C BC #### [facility] [address] [place] [address] Dr. Ember Teague RBC 2.89 106/ul Critically low 4.20-5.40 [facility] Comment on above: Performed By: #### C BC #### [facility] [address] [place] [address] Dr. Ember Teague WBC 5.8 103/ul Normal 4.0-11.0 [facility] Comment on above: Performed By: #### C BC #### [facility] [address] [place] [address] Dr. Ember Teague PROF 14(COMP METB)on 022 Albumin [Mass/Vol] 3.7 g/dL Normal 3.4-5.0 [facility] Comment on above: Performed By: #### P THINT #### [facility] [address] [place] [address] Dr. Ember Teague Albumin/Globulin [Mass ratio] 1.0 {ratio} Normal [facility] Comment on above: Performed By: #### P THINT #### [facility] [address] [place] [address] Dr. Ember Teague ALP [Catalytic activity/Vol] 79 U/L Normal 46-116 [facility] Comment on above: Performed By: #### P THINT #### [facility] [address] [place] [address] Dr. Ember Teague ALT [Catalytic activity/Vol] 24 U/L Normal 14-59 [facility] Comment on above: Performed By: #### P THINT #### [facility] [address] [place] [address] Dr. Ember Teague Anion gap [Moles/Vol] 12.8 mmol/L Normal [facility] Comment on above: Performed By: #### P THINT #### [facility] [address] [place] [address] Dr. Ember Teague AST [Catalytic activity/Vol] 17 U/L Normal 15-37 [facility] Comment on above: Performed By: #### P THINT #### [facility] [address] [place] [address] Dr. Ember Teague Bilirubin [Mass/Vol] 0.5 mg/dL Normal 0.2-1.0 [facility] Comment on above: Performed By: #### P THINT #### [facility] [address] [place] [address] Dr. Ember Teague Calcium [Mass/Vol] 9.4 mg/dL Normal 8.5-10.1 [facility] Comment on above: Performed By: #### P THINT #### [facility] [address] [address] [address] Ember Teague Chloride [Moles/Vol] 101 mmol/L Normal 98-107 [facility] Comment on above: Performed By: #### P THINT #### [facility] [address] [place] [address] Dr. Ember Teague CO2 [Moles/Vol] 24.3 mmol/L Normal 21.0-32.0 [facility] Comment on above: Performed By: #### P THINT #### [facility] [address] [place] [address] Dr. Ember Teague Creatinine [Mass/Vol] 2.84 mg/dL Critically high 0.55-1.02 [facility] Comment on above: Performed By: #### P THINT #### [facility] [address] [place] [address] Dr. Ember Teague EGFR-AF TOGOLESE 20 mL/min/1.73m2 Critically low >=60 [facility] Comment on above: Performed By: #### P THINT #### [facility] [address] [place] [address] Dr. Ember Teague EGFR-NON AF TOGOLESE 16 mL/min/1.73m2 Critically low >=60 [facility] Comment on above: Performed By: #### P THINT #### [facility] [address] [place] [address] Dr. Ember Teague Globulin (S) [Mass/Vol] 3.7 g/dL Normal [facility] Comment on above: Performed By: #### P THINT #### [facility] [address] [place] [address] Dr. Ember Teague Glucose [Mass/Vol] 174 mg/dL Critically high 74-106 [facility] Comment on above: Performed By: #### P THINT #### [facility] [address] [place] [address] Dr. Ember Teague Potassium [Moles/Vol] 5.1 mmol/L Normal 3.5-5.1 [facility] Comment on above: Performed By: #### P THINT #### [facility] [address] [place] [address] Dr. Ember Teague Protein [Mass/Vol] 7.4 g/dL Normal 6.4-8.2 [facility] Comment on above: Performed By: #### P THINT #### [facility] [address] [place] [address] Dr. Ember Teague Sodium [Moles/Vol] 133 mmol/L Critically low 136-145 [facility] Comment on above: Performed By: #### P THINT #### [facility] [address] [place] [address] Dr. Ember Teague Urea nitrogen [Mass/Vol] 68.0 mg/dL Critically high 7.0-18.0 [facility] Comment on above: Performed By: #### P THINT #### [facility] [address] [place] [address] Dr. Ember Teague Urea nitrogen/Creatinine [Mass ratio] 23.9 mg/mg Normal [facility] Comment on above: Performed By: #### P THINT #### [facility] [address] [place] [address] Dr. Ember Teague TROPONIN, HIGH SENSITIVITYon 09-11-2022 HSTROP 9.1 pg/mL Normal 4.0-51.3 [facility] Comment on above: Result Comment: CUT- OFF POINTS HAVE BEEN ESTABLISHED BASED ON THE FOURTH UNIVERSAL DEFINITIONS OF MYOCARDIAL INFARCTION. THE UPPER REFERENCE LIMIT (URL) OF TROPONIN, DEFINED THE 99TH PERCENTILE OF cTnI DISTRIBUTION IN A REFERENCE POPULATION, HAS BEEN CONFIRMED THE DECISION THRESHOLD FOR [place] DIAGNOSIS. Performed By: #### P THINT #### [facility] [address] [place] [address] Dr. Ember Teague UA RANDOM W/MICROSCOPICon BACTERIA NONE SEEN Normal NONE SEEN [facility] Comment on above: Performed By: #### C VDTBH #### [facility] [address] [place] [address] Dr. Ember Teague Bilirubin Ql (U) Negative Normal NEGATIVE [facility] Comment on above: Performed By: #### C VDTBH #### [facility] [address] [place] [address] Dr. Emebr Teague CAST NONE SEEN Normal NONE SEEN [facility] Comment on above: Performed By: #### C VDTBH #### [facility] [address] [place] [address] Dr. Ember Teague Clarity (U) CLEAR Normal CLEAR [facility] Comment on above: Performed By: #### C VDTBH #### [facility] [address] [place] [address] Dr. Ember Teague Color (U) LT. YELLOW Normal YELLOW [facility] Comment on above: Performed By: #### C VDTBH #### [facility] [address] [place] [address] Dr. Ember Teague Crystals LM Nom (Urine sed) NONE SEEN Normal NONE SEEN [facility] Comment on above: Performed By: #### C VDTBH #### [facility] [address] [place] [address] Dr. Ember Teague Epithelial cells LM Ql (Urine sed) FEW Abnormal NONE SEEN /RARE [facility] Comment on above: Performed By: #### C VDTBH #### [facility] [address] [place] [address] Dr. Ember Teague Glucose Ql (U) Negative Normal NEGATIVE [facility] Comment on above: Performed By: #### C VDTBH #### [facility] [address] [place] [address] Dr. Ember Teague Hemoglobin Ql (U) Negative Normal NEGATIVE [facility] Comment on above: Performed By: #### C VDTBH #### [facility] [address] [place] [address] Dr. Ember Teague Ketones Ql (U) Negative Normal NEGATIVE [facility] Comment on above: Performed By: #### C VDTBH #### [facility] [address] [place] [address] Dr. Embre Teague LEUKOCYTES Negative Normal NEGATIVE [facility] Comment on above: Performed By: #### C VDTBH #### [facility] [address] [place] [address] Dr. Ember Teague MUCOUS NONE SEEN Normal NONE SEEN [facility] Comment on above: Performed By: #### C VDTBH #### [facility] [address] [place] [address] Dr. Ember Teague Nitrite Ql (U) Negative Normal NEGATIVE [facility] Comment on above: Performed By: #### C VDTBH #### [facility] [address] [place] [address] Dr. Ember Teague pH (U) 5.5 [pH] Normal 5-9 [facility] Comment on above: Performed By: #### C VDTBH #### [facility] [address] [place] [address] Dr. Ember Teague RBC NONE SEEN Abnormal 0-2 [facility] Comment on above: Performed By: #### C VDTBH #### [facility] [address] [place] [address] Dr. Ember Teague SPEC GRAVITY 1.010 Normal 1.005-<=1.025 [facility] Comment on above: Performed By: #### C VDTBH #### [facility] [address] [place] [address] Dr. Ember Teague UA PROTEIN Negative Normal NEGATIVE/ TRACE [facility] Comment on above: Performed By: #### C VDTBH #### [facility] [address] [place] [address] Dr. Ember Teague Urobilinogen Qn (U) 0.2 {Esau'U}/dL Normal 0.2 - 1. 0 [facility] Comment on above: Performed By: #### C VDTBH #### [facility] [address] [place], [place] [address] Dr. Ember Teague WBC NONE SEEN Normal NONE SEEN [facility] Comment on above: Performed By: #### C VDTBH #### [facility] [address] [place] [address] Dr. Ember Teague CBC AUTO DIFFon 08-13-2022 BASO # 0.0 103/ul Normal 0.0-0.1 [facility] Comment on above: Performed By: #### C BC #### [facility] [address] [place] [address] Dr. Ember Teague Basophils/100 WBC (Bld) 0.3 % Normal 0.2-2.0 [facility] Comment on above: Performed By: #### C BC #### [facility] [address] [place] [address] Dr. Ember Teague EO # 0.2 103/ul Normal 0.0-0.7 [facility] Comment on above: Performed By: #### C BC #### [facility] [address] [place] [address] Dr. Ember Teague Eosinophils/100 WBC (Bld) 3.7 % Normal 0.9-7.0 [facility] Comment on above: Performed By: #### C BC #### [facility] [address] [place] [address] Dr. Ember Teague Erythrocyte distribution width (RBC) [Ratio] 15.0 % Normal 11.0-15.0 [facility] Comment on above: Performed By: #### C BC #### [facility] [address] [place] [address] Dr. Ember Teague Hematocrit (Bld) [Volume fraction] 27.9 % Critically low 36.0-48.0 [facility] Comment on above: Performed By: #### C BC #### [facility] [address] [place] [address] Dr. Ember Teague Hemoglobin (Bld) [Mass/Vol] 9.7 g/dL Critically low 12.0-16.0 [facility] Comment on above: Performed By: #### C BC #### [facility] [address] [place] [address] Dr. Ember Teague IG # 0.01 10e3/ul Normal 0.00-0.03 [facility] Comment on above: Performed By: #### C BC #### [facility] [address] [place] [address] Dr. Ember Teague IG % 0.2 % Normal 0.0-0.5 [facility] Comment on above: Performed By: #### C BC #### [facility] [address] [place] [address] Dr. Ember Teague LYMPH # 1.9 103/ul Normal 1.2-3.8 [facility] Comment on above: Performed By: #### C BC #### [facility] [address] [place] [address] Dr. Ember Teague Lymphocytes/100 WBC (Bld) 32.2 % Normal 20.5-60.0 [facility] Comment on above: Performed By: #### C BC #### [facility] [address] [place] [address] Dr. Ember Teague MANUAL DIFF REQ NO Normal [facility] Comment on above: Performed By: #### C BC #### [facility] [address] [place] [address] Dr. Ember Teague MCH (RBC) [Entitic mass] 31.4 pg Normal 26.7-34.0 [facility] Comment on above: Performed By: #### C BC #### [facility] [address] [place] [address] Dr. Ember Teague MCHC (RBC) [Mass/Vol] 34.8 g/dL Normal 29.9-35.2 [facility] Comment on above: Performed By: #### C BC #### [facility] [address] [place] [address] Dr. Ember Teague MCV (RBC) [Entitic vol] 90.3 fL Normal 81.0-99.0 [facility] Comment on above: Performed By: #### C BC #### [facility] [address] [place] [address] Dr. Ember Teague MONO # 0.6 103/ul Normal 0.3-0.8 [facility] Comment on above: Performed By: #### C BC #### [facility] [address] [place] [address] Dr. Ember Teague Monocytes/100 WBC (Bld) 9.8 % Normal 1.7-12.0 [facility] Comment on above: Performed By: #### C BC #### [facility] [address] [address] [address] Ember Teague NEUT # 3.2 103/ul Normal 1.4-6.5 [facility] Comment on above: Performed By: #### C BC #### [facility] [address] [place] [address] Dr. Ember Teague Neutrophils/100 WBC (Bld) 53.8 % Normal 43.0-75.0 [facility] Comment on above: Performed By: #### C BC #### [facility] [address] [place] [address] Dr. Ember Teague Platelet mean volume (Bld) [Entitic vol] 10.0 fL Normal 9.5-13.5 [facility] Comment on above: Performed By: #### C BC #### [facility] [address] [place] [address] Dr. Ember Teague PLT 194 103/ul Normal 150-450 [facility] Comment on above: Performed By: #### C BC #### [facility] [address] [place] [address] Dr. Ember Teague RBC 3.09 106/ul Critically low 4.20-5.40 [facility] Comment on above: Performed By: #### C BC #### [facility] [address] [place] [address] Dr. Ember Teague WBC 6.0 103/ul Normal 4.0-11.0 [facility] Comment on above: Performed By: #### C BC #### [facility] [address] [place] [address] Dr. Ember Teague PTH INTACTon 06-26-2022 PTH, Intact 39 pg/mL Normal 15-65 [facility] Comment on above: Performed By: #### P THINT #### [facility] [address] [place] [address] Dr. Ember Teague CBC AUTO DIFFon 06-25-2022 BASO # 0.1 103/ul Normal 0.0-0.1 [facility] Comment on above: Performed By: #### C VDTBH #### [facility] [address] [place] [address] Dr. Ember Teague Basophils/100 WBC (Bld) 0.6 % Normal 0.2-2.0 [facility] Comment on above: Performed By: #### C VDTBH #### [facility] [address] [place] [address] Dr. Ember Teague EO # 0.2 103/ul Normal 0.0-0.7 [facility] Comment on above: Performed By: #### C VDTBH #### [facility] [address] [place] [address] Dr. Ember Teague Eosinophils/100 WBC (Bld) 3.0 % Normal 0.9-7.0 [facility] Comment on above: Performed By: #### C VDTBH #### [facility] [address] [place] [address] Dr. Ember Teague Erythrocyte distribution width (RBC) [Ratio] 14.2 % Normal 11.0-15.0 [facility] Comment on above: Performed By: #### C VDTBH #### [facility] [address] [place] [address] Dr. Ember Teague Hematocrit (Bld) [Volume fraction] 30.9 % Critically low 36.0-48.0 [facility] Comment on above: Performed By: #### C VDTBH #### [facility] [address] [place] [address] Dr. Ember Teague Hemoglobin (Bld) [Mass/Vol] 10.6 g/dL Critically low 12.0-16.0 [facility] Comment on above: Performed By: #### C VDTBH #### [facility] [address] [place] [address] Dr. Ember Teague IG # 0.04 10e3/ul Critically high 0.00-0.[address] [facility] Comment on above: Performed By: #### C VDTBH #### [facility] [address] [place] [address] Dr. Ember Teague IG % 0.5 % Normal 0.0-0.5 [facility] Comment on above: Performed By: #### C VDTBH #### [facility] [address] [place] [address] Dr. Ember Teague LYMPH # 2.2 103/ul Normal 1.2-3.8 [facility] Comment on above: Performed By: #### C VDTBH #### [facility] [address] [place] [address] Dr. Ember Teague Lymphocytes/100 WBC (Bld) 27.0 % Normal 20.5-60.0 [facility] Comment on above: Performed By: #### C VDTBH #### [facility] [address] [place] [address] Dr. Ember Teague MANUAL DIFF REQ NO Normal [facility] Comment on above: Performed By: #### C VDTBH #### [facility] [address] [place] [address] Dr. Ember Teague MCH (RBC) [Entitic mass] 31.2 pg Normal 26.7-34.0 [facility] Comment on above: Performed By: #### C VDTBH #### [facility] [address] [place] [address] Dr. Ember Teague MCHC (RBC) [Mass/Vol] 34.3 g/dL Normal 29.9-35.2 [facility] Comment on above: Performed By: #### C VDTBH #### [facility] [address] [place] [address] Dr. Ember Teague MCV (RBC) [Entitic vol] 90.9 fL Normal 81.0-99.0 [facility] Comment on above: Performed By: #### C VDTBH #### [facility] [address] [place] [address] Dr. Ember Teague MONO # 0.7 103/ul Normal 0.3-0.8 [facility] Comment on above: Performed By: #### C VDTBH #### [facility] [address] [place] [address] Dr. Ember Teague Monocytes/100 WBC (Bld) 9.2 % Normal 1.7-12.0 [facility] Comment on above: Performed By: #### C VDTBH #### [facility] [address] [place] [address] Dr. Ember Teague NEUT # 4.8 103/ul Normal 1.4-6.5 [facility] Comment on above: Performed By: #### C VDTBH #### [facility] [address] [place] [address] Dr. Ember Teague Neutrophils/100 WBC (Bld) 59.7 % Normal 43.0-75.0 [facility] Comment on above: Performed By: #### C VDTBH #### [facility] [address] [place] [address] Dr. Ember Teague Platelet mean volume (Bld) [Entitic vol] 9.3 fL Critically low 9.5-13.5 [facility] Comment on above: Performed By: #### C VDTBH #### [facility] [address] [place] [address] Dr. Ember Teague PLT 227 103/ul Normal 150-450 [facility] Comment on above: Performed By: #### C VDTBH #### [facility] [address] [place] [address] Dr. Ember Teague RBC 3.40 106/ul Critically low 4.20-5.40 [facility] Comment on above: Performed By: #### C VDTBH #### [facility] [address] [place] [address] Dr. Ember Teague WBC 8.0 103/ul Normal 4.0-11.0 [facility] Comment on above: Performed By: #### C VDTBH #### [facility] [address] [place] [address] Dr. Ember Teague MRI LSPINE WO CONon [...] YANET HUERTA Date: 2022-06-25 08:45 Normal [facility] RENAL FUNCTION PANELon 06-25 Albumin [Mass/Vol] 3.9 g/dL Normal 3.4-5.0 [facility] Comment on above: Performed By: #### P THINT #### [facility] [address] [address] [address] Ember Teague Calcium [Mass/Vol] 9.5 mg/dL Normal 8.5-10.1 [facility] Comment on above: Performed By: #### P THINT #### [facility] [address] [address] [address] Ember Teague Chloride [Moles/Vol] 102 mmol/L Normal 98-107 [facility] Comment on above: Performed By: #### P THINT #### [facility] [address] [address] [address] Ember Teague CO2 [Moles/Vol] 23.8 mmol/L Normal 21.0-32.0 [facility] Comment on above: Performed By: #### P THINT #### [facility] [address] [address] [address] Ember Teague Creatinine [Mass/Vol] 1.75 mg/dL Critically high 0.55-1.02 [facility] Comment on above: Performed By: #### P THINT #### [facility] [address] [place] [address] Dr. Ember Teague EGFR-AF TOGOLESE 34 mL/min/1.73m2 Critically low >=60 [facility] Comment on above: Performed By: #### P THINT #### [facility] [address] [place] [address] Dr. Ember Teague EGFR-NON AF TOGOLESE 28 mL/min/1.73m2 Critically low >=60 [facility] Comment on above: Performed By: #### P THINT #### [facility] [address] [place] [address] Dr. Ember Teague Glucose [Mass/Vol] 199 mg/dL Critically high 74-106 [facility] Comment on above: Performed By: #### P THINT #### [facility] [address] [address] [address] Ember Teague Phosphate [Mass/Vol] 4.3 mg/dL Normal 2.6-4.7 [facility] Comment on above: Performed By: #### P THINT #### [facility] [address] [place] [address] Dr. Ember Teague Potassium [Moles/Vol] 4.9 mmol/L Normal 3.5-5.1 [facility] Comment on above: Performed By: #### P THINT #### [facility] [address] [address] [address] Ember Teague Sodium [Moles/Vol] 135 mmol/L Critically low 136-145 [facility] Comment on above: Performed By: #### P THINT #### [facility] [address] [place] [address] Dr. Ember Teague Urea nitrogen [Mass/Vol] 34.0 mg/dL Critically high 7.0-18.0 [facility] Comment on above: Performed By: #### P THINT #### [facility] [address] [place] [address] Dr. Ember Teague VITAMIN D 25 OHon 06-25-2022 VIT D 25-OH 40.6 ng/mL Normal [facility] Comment on above: Performed By: #### P THINT #### [facility] [address] [place] [address] Dr. Ember Teague VIT D RANGES SEE BELOW Normal [facility] Comment on above: Result Comment: <20 ng/mL Vit D deficient 20 - <30 ng/mL Vit D insufficient 30 - 100 ng/mL Vit D sufficient >100 ng/mL Potential Toxicity Performed By: #### P THINT #### [facility] [address] [place] [address] Dr. Ember Teague Covid-19 PCR (CVDTB)on 06-07 SARS-CoV-2 (COVID-19) RNA ALEXX+probe Ql (Unsp spec) Not detected Normal NOT DETECTED [facility] Comment on above: Result Comment: This test is not yet approved or cleared by the [place] FDA. When there are no FDA-approved or cleared tests available, and other criteria are met, FDA can make tests available under an emergency access mechanism called an Emergency Use Authorization (EUA). The EUA for this test is supported by the Support Associate of Health and Human Service's (HHS's) declaration [...] consistent with SARS-CoV-2. Performed By: #### C [facility] #### [facility] [address] [address] [address] LSPINE WO CONon [...] YANET HUERTA Date: 2022-06-01 18:02 Normal [facility] XR LSPINE MIN 4 VIEWSon [...] by: YANET HUERTA Date: 2022-05-21 15:25 Normal [facility] PTH INTACTon 05-03-2022 PTH, Intact 60 pg/mL Normal 15-65 [facility] Comment on above: Performed By: #### C VDTBH #### [facility] [address] [address] [address] Ember Teague VIT D 25-OH LABCORPon 2021 Vitamin D, 25-Hydroxy 26.1 ng/mL Critically low 30.0-100.0 [facility] Comment on above: Result Comment: Sara min D deficiency has been defined by the [place] [employer] and an Endocrine Society practice guideline as a level of serum 25-OH vitamin D less than 20 ng/mL (1,2). The Endocrine Society went on to further define vitamin D insufficiency as a level between 21 and 29 ng/mL (2). 1. IOM ([place] of [employer]). 2010. Dietary reference intakes for calcium and D. [place]: The National Academies Press. 2. Sherice MF, Wendy [place], Huan ZHONG, et al. Evaluation, treatment, and prevention of vitamin D deficiency: an Endocrine Society clinical practice guideline. JCEM. 2010; 96(7):1911-30. Performed By: #### R ENAL #### [facility] [address] [address] [address] Ember Teague FERRITINon 05-02-2022 Ferritin [Mass/Vol] 590.0 ng/mL Critically high 8.0-252.0 [facility] Comment on above: Performed By: #### R ENAL #### [facility] [address] [address] [address] Ember Teague HEMOGRAM AND PLATELon 2021 Hematocrit (Bld) [Volume fraction] 28.4 % Critically low 36.0-48.0 [facility] Comment on above: Performed By: #### C VDTBH #### [facility] [address] [address] [address] Ember Teague Hemoglobin (Bld) [Mass/Vol] 9.6 g/dL Critically low 12.0-16.0 [facility] Comment on above: Performed By: #### C VDTBH #### [facility] [address] [address] [address] Ember Teague MCH (RBC) [Entitic mass] 31.0 pg Normal 26.7-34.0 [facility] Comment on above: Performed By: #### C VDTBH #### [facility] [address] [place] [address] Dr. Ember Teague MCHC (RBC) [Mass/Vol] 33.8 g/dL Normal 29.9-35.2 [facility] Comment on above: Performed By: #### C VDTBH #### [facility] [address] [address] [address] Ember Teague MCV (RBC) [Entitic vol] 91.6 fL Normal 81.0-99.0 [facility] Comment on above: Performed By: #### C VDTBH #### [facility] [address] [place] [address] Dr. Ember Teague PLT 189 103/ul Normal 150-450 [facility] Comment on above: Performed By: #### C VDTBH #### [facility] [address] [address] [address] Ember Teague RBC 3.10 106/ul Critically low 4.20-5.40 [facility] Comment on above: Performed By: #### C VDTBH #### [facility] [address] [place] [address] Dr. Ember Teague WBC 6.2 103/ul Normal 4.0-11.0 [facility] Comment on above: Performed By: #### C VDTBH #### [facility] [address] [address] [address] Ember Teague IRON AND TIBCon 05-02-2022 % SATURATION 34.3 % Normal [facility] Comment on above: Performed By: #### R ENAL #### [facility] [address] [place] [address] Dr. Ember Teague Iron [Mass/Vol] 69.0 ug/dL Normal 50.0-170.0 [facility] Comment on above: Performed By: #### R ENAL #### [facility] [address] [place] [address] Dr. Ember Teague TIBC DIRECT 201.0 ug/dL Critically low 250.0-450.[address] [facility] Comment on above: Performed By: #### R ENAL #### [facility] [address] [place] [address] Dr. Ember Teague MAGNESIUMon 05-02-2022 Magnesium [Mass/Vol] 1.7 mg/dL Critically low 1.8-2.4 [facility] Comment on above: Performed By: #### C VDTBH #### [facility] [address] [place] [address] Dr. Ember Teague RENAL FUNCTION PANELon 05-02 Albumin [Mass/Vol] 3.6 g/dL Normal 3.4-5.0 [facility] Comment on above: Performed By: #### C VDTBH #### [facility] [address] [place] [address] Dr. Ember Teague Calcium [Mass/Vol] 9.2 mg/dL Normal 8.5-10.1 [facility] Comment on above: Performed By: #### C VDTBH #### [facility] [address] [place] [address] Dr. Ember Teague Chloride [Moles/Vol] 107 mmol/L Normal 98-107 [facility] Comment on above: Performed By: #### C VDTBH #### [facility] [address] [place] [address] Dr. Ember Teague CO2 [Moles/Vol] 21.2 mmol/L Normal 21.0-32.0 [facility] Comment on above: Performed By: #### C VDTBH #### [facility] [address] [address] [address] Ember Teague Creatinine [Mass/Vol] 1.75 mg/dL Critically high 0.55-1.02 [facility] Comment on above: Performed By: #### C VDTBH #### [facility] [address] [address] [address] Ember Teague EGFR-AF TOGOLESE 34 mL/min/1.73m2 Critically low >=60 [facility] Comment on above: Performed By: #### C VDTBH #### [facility] [address] [place] [address] Dr. Ember Teague EGFR-NON AF TOGOLESE 28 mL/min/1.73m2 Critically low >=60 [facility] Comment on above: Performed By: #### C VDTBH #### [facility] [address] [place] [address] Dr. Ember Teague Glucose [Mass/Vol] 193 mg/dL Critically high 74-106 [facility] Comment on above: Performed By: #### C VDTBH #### [facility] [address] [place] [address] Dr. Ember Teague Phosphate [Mass/Vol] 4.2 mg/dL Normal 2.6-4.7 [facility] Comment on above: Performed By: #### C VDTBH #### [facility] [address] [place] [address] Dr. Ember Teague Potassium [Moles/Vol] 5.1 mmol/L Normal 3.5-5.1 [facility] Comment on above: Performed By: #### C VDTBH #### [facility] [address] [place] [address] Dr. Ember Teague Sodium [Moles/Vol] 139 mmol/L Normal 136-145 [facility] Comment on above: Performed By: #### C VDTBH #### [facility] [address] [place] [address] Dr. Ember Teague Urea nitrogen [Mass/Vol] 34.0 mg/dL Critically high 7.0-18.0 [facility] Comment on above: Performed By: #### C VDTBH #### [facility] [address] [place] [address] Dr. Ember Teague UA RANDOM W/MICROSCOPICon BACTERIA SMALL Abnormal NONE SEEN [facility] Comment on above: Performed By: #### C VDTBH #### [facility] [address] [place] [address] Dr. Ember Teague Bilirubin Ql (U) Negative Normal NEGATIVE [facility] Comment on above: Performed By: #### C VDTBH #### [facility] [address] [place] [address] Dr. Ember Teague CAST NONE SEEN Normal NONE SEEN [facility] Comment on above: Performed By: #### C VDTBH #### [facility] [address] [place] [address] Dr. Ember Teague Clarity (U) CLEAR Normal CLEAR [facility] Comment on above: Performed By: #### C VDTBH #### [facility] [address] [place] [address] Dr. Ember Teague Color (U) LT. YELLOW Normal YELLOW [facility] Comment on above: Performed By: #### C VDTBH #### [facility] [address] [place] [address] Dr. Ember Teague Crystals LM Nom (Urine sed) NONE SEEN Normal NONE SEEN [facility] Comment on above: Performed By: #### C VDTBH #### [facility] [address] [place] [address] Dr. Ember Teague Epithelial cells LM Ql (Urine sed) MODERATE Abnormal NONE SEEN /RARE [facility] Comment on above: Performed By: #### C VDTBH #### [facility] [address] [place] [address] Dr. Ember Teague Glucose Ql (U) Negative Normal NEGATIVE The [facility] Comment on above: Performed By: #### C VDTBH #### [facility] [address] [place] [address] Dr. Ember Teague Hemoglobin Ql (U) Negative Normal NEGATIVE The [facility] Comment on above: Performed By: #### C VDTBH #### [facility] [address] [place] [address] Dr. Ember Teague Ketones Ql (U) Negative Normal NEGATIVE The [facility] Comment on above: Performed By: #### C VDTBH #### [facility] [address] [place] [address] Dr. Ember Teague LEUKOCYTES TRACE Abnormal NEGATIVE [facility] Comment on above: Performed By: #### C VDTBH #### [facility] [address] [place] [address] Dr. Ember Teague MUCOUS NONE SEEN Normal NONE SEEN [facility] Comment on above: Performed By: #### C VDTBH #### [facility] [address] [place] [address] Dr. Ember Teague Nitrite Ql (U) Negative Normal NEGATIVE The [facility] Comment on above: Performed By: #### C VDTBH #### [facility] [address] [place] [address] Dr. Ember Teague pH (U) 5.0 [pH] Normal 5-9 [facility] Comment on above: Performed By: #### C VDTBH #### [facility] [address] [place] [address] Dr. Ember Teague RBC NONE SEEN Abnormal 0-2 The [facility] Comment on above: Performed By: #### C VDTBH #### [facility] [address] [place] [address] Dr. Ember Teague SPEC GRAVITY 1.015 Normal 1.005-<=1.025 The [facility] Comment on above: Performed By: #### C VDTBH #### [facility] [address] [place] [address] Dr. Ember Teague UA PROTEIN TRACE Normal NEGATIVE/ TRACE The [facility] Comment on above: Performed By: #### C VDTBH #### [facility] [address] [place] [address] Dr. Ember Teague Urobilinogen Qn (U) 0.2 {Esau'U}/dL Normal 0.2 - 1. 0 [facility] Comment on above: Performed By: #### C VDTBH #### [facility] [address] [address] [address] Ember Teague WBC 0-2 Abnormal NONE SEEN The [facility] Comment on above: Performed By: #### C VDTBH #### [facility] [address] [place] [address] Dr. Ember Teague URIC ACID SERUMon 05-02-2022 Urate [Mass/Vol] 4.4 mg/dL Normal 2.6-6.0 [facility] Comment on above: Performed By: #### C #### [facility] [address] [place] [address] Dr. Ember Teague URINE T PROTEIN CREAT RATIOo n 05-02-2022 Protein (U) [Mass/Vol] 33.7 mg/dL Critically high <=12.0 [facility] Comment on above: Performed By: #### C VDTBH #### [facility] [address] [address] [address] Ember Teague UR PROT CREAT RAT 0.69 Normal The [facility] Comment on above: Performed By: #### C VDTBH #### [facility] [address] [place] [address] Dr. Ember Teague URINE CREAT 48.93 mg/dL Normal 20.00-300.00 The [facility] Comment on above: Performed By: #### C VDTBH #### [facility] [address] [place] [address] Dr. Ember Teague Vital Signs Date Time Vital Sign Value Performing Clinician Facility 02-15-2025 09:51-0400 Body height 168.9 cm Lorraine Mayer MD Work Phone: [facility] 02-15-2025 09:51-0400 Body mass index (BMI) [Ratio] 31 kg/m2 Lorraine Mayer MD Work Phone: [facility] 02-15-2025 09:51-0400 Body weight 88.45 kg Lorraine Mayer MD Work Phone: [facility] 02-15-2025 09:51-0400 Diastolic blood pressure 62 mm[Hg] Lorraine Mayer MD Work Phone: [facility] 02-15-2025 09:51-0400 Heart rate 63 /min Lorraine Mayer MD Work Phone: [facility] 02-15-2025 09:51-0400 Respiratory rate 16 /min Lorraine Mayer MD Work Phone: [facility] 02-15-2025 09:51-0400 SaO2% (BldA) [Mass fraction] 97 % Lorraine Mayer MD Work Phone: [facility] 02-15-2025 09:51-0400 Systolic blood pressure 132 mm[Hg] Lorraine Mayer MD Work Phone: [facility] 01-14-2025 09:15-0400 Body height 168.91 cm [facility] 01-14-2025 09:15-0400 Body mass index (BMI) [Ratio] 30.8 kg/m2 [facility] 01-14-2025 09:15-0400 Body temperature 98.2 [degF] [facility] 01-14-2025 09:15-0400 Body weight 88.05 kg [facility] 01-14-2025 09:15-0400 Diastolic blood pressure 58 mm[Hg] [facility] 01-14-2025 09:15-0400 Heart rate 65 /min [facility] 01-14-2025 09:15-0400 Respiratory rate 16 /min [facility] 01-14-2025 09:15-0400 SaO2% (BldA) [Mass fraction] 98 % [facility] 01-14-2025 09:15-0400 Systolic blood pressure 128 mm[Hg] [facility] 11-16-2024 09:49-0500 Body height 168.9 cm Lorraine Mayer MD Work Phone: [facility] 11-16-2024 09:49-0500 Body mass index (BMI) [Ratio] 30.53 kg/m2 Lorraine Mayer MD Work Phone: [facility] 11-16-2024 09:49-0500 Body weight 87.09 kg Lorraine Mayer MD Work Phone: [facility] 11-16-2024 09:49-0500 Diastolic blood pressure 80 mm[Hg] Lorraine Mayer MD Work Phone: [facility] 11-16-2024 09:49-0500 Heart rate 62 /min Lorraine Mayer MD Work Phone: [facility] 11-16-2024 09:49-0500 Respiratory rate 16 /min Lorraine Mayer MD Work Phone: [facility] 11-16-2024 09:49-0500 SaO2% (BldA) [Mass fraction] 97 % Lorraine Mayer MD Work Phone: [facility] 11-16-2024 09:49-0500 Systolic blood pressure 130 mm[Hg] Lorraine Mayer MD Work Phone: [facility] 01-17-2024 12:56-0400 Body height 168.9 cm Thuan Lucas MD Work Phone: [facility] 01-17-2024 12:56-0400 Body mass index (BMI) [Ratio] 30.05 kg/m2 Thuan Lucas MD Work Phone: [facility] 01-17-2024 12:56-0400 Body weight 85.73 kg Thuan Lucas MD Work Phone: [facility] 01-17-2024 12:56-0400 Diastolic blood pressure 70 mm[Hg] Thuan Lucas MD Work Phone: [facility] 01-17-2024 12:56-0400 Heart rate 60 /min Thuan Lucas MD Work Phone: [facility] 01-17-2024 12:56-0400 SaO2% (BldA) [Mass fraction] 98 % Thuan Lucas MD Work Phone: [facility] 01-17-2024 12:56-0400 Systolic blood pressure 180 mm[Hg] Thuan Lucas MD Work Phone: [facility] 11-18-2023 10:00-0500 Body height 168.91 cm Ron Doreen Other [employer] Other 11-18-2023 10:00-0500 Body mass index (BMI) [Ratio] 29.85 kg/m2 Ron Doreen Other [employer] Other 11-18-2023 10:00-0500 Body temperature 97.3 [degF] Ron Doreen Other [employer] Other 11-18-2023 10:00-0500 Body weight 85.19 kg Ron Doreen Other [employer] Other 11-18-2023 10:00-0500 Diastolic blood pressure 79 mm[Hg] Ron Doreen Other [employer] Other 11-18-2023 10:00-0500 Respiratory rate 18 /min Ron Doreen Other [employer] Other 11-18-2023 10:00-0500 SaO2% (BldA) [Mass fraction] 98 % Ron Doreen Other [employer] Other 11-18-2023 10:00-0500 Systolic blood pressure 149 mm[Hg] Ron Doreen Other [employer] Other 11-04-2023 11:00-0500 Body height 168.91 cm Ron Doreen Other [employer] Other 11-04-2023 11:00-0500 Body mass index (BMI) [Ratio] 30.17 kg/m2 Ron Doreen Other [employer] Other 11-04-2023 11:00-0500 Body temperature 97.6 [degF] Ron Doreen Other [employer] Other 11-04-2023 11:00-0500 Body weight 86.09 kg Ron Doreen Other [employer] Other 11-04-2023 11:00-0500 Diastolic blood pressure 76 mm[Hg] Ron Doreen Other [employer] Other 11-04-2023 11:00-0500 Respiratory rate 18 /min Ron Doreen Other [employer] Other 11-04-2023 11:00-0500 SaO2% (BldA) [Mass fraction] 98 % Ron Doreen Other [employer] Other 11-04-2023 11:00-0500 Systolic blood pressure 153 mm[Hg] Ron Doreen Other [employer] Other 10-15-2023 13:00-0500 Body height 168.91 cm Ron Doreen Other [employer] Other 10-15-2023 13:00-0500 Body mass index (BMI) [Ratio] 29.82 kg/m2 Ron Doreen Other [employer] Other 10-15-2023 13:00-0500 Body temperature 97.5 [degF] Ron Doreen Other [employer] Other 10-15-2023 13:00-0500 Body weight 85.1 kg Ron Doreen Other [employer] Other 10-15-2023 13:00-0500 Diastolic blood pressure 68 mm[Hg] Ron Doreen Other [employer] Other 10-15-2023 13:00-0500 Respiratory rate 18 /min Ron Doreen Other [employer] Other 10-15-2023 13:00-0500 SaO2% (BldA) [Mass fraction] 98 % Ron Doreen Other [employer] Other 10-15-2023 13:00-0500 Systolic blood pressure 113 mm[Hg] Ron Doreen Other [facility] Other 08-27-2023 09:40-0500 Body height 168.91 cm Mary Anne [employer] Other [employer] Other 08-27-2023 09:40-0500 Body mass index (BMI) [Ratio] 30.2 kg/m2 Mary Anne [employer] Other [employer] Other 08-27-2023 09:40-0500 Body temperature 96.7 [degF] Mary Anne [employer] Other [employer] Other 08-27-2023 09:40-0500 Body weight 86.18 kg Mary Anne Ackerman Other [employer] Other 08-27-2023 09:40-0500 Diastolic blood pressure 72 mm[Hg] Mary Anne [employer] Other [employer] Other 08-27-2023 09:40-0500 Respiratory rate 18 /min Mary Anne Ackerman Other [employer] Other 08-27-2023 09:40-0500 SaO2% (BldA) [Mass fraction] 98 % Mary Anne Ackerman Other [employer] Other 08-27-2023 09:40-0500 Systolic blood pressure 153 mm[Hg] Mary Anne Ackerman Other [employer] Other 08-15-2023 10:20-0500 Body height 168.91 cm Ron Doreen Other [employer] Other 08-15-2023 10:20-0500 Body mass index (BMI) [Ratio] 30.2 kg/m2 Ron Doreen Other [employer] Other 08-15-2023 10:20-0500 Body temperature 97.1 [degF] Ron Doreen Other [employer] Other 08-15-2023 10:20-0500 Body weight 86.18 kg Ron Doreen Other [employer] Other 08-15-2023 10:20-0500 Diastolic blood pressure 79 mm[Hg] Ron Doreen Other [employer] Other 08-15-2023 10:20-0500 Respiratory rate 18 /min Ron Doreen Other [employer] Other 08-15-2023 10:20-0500 SaO2% (BldA) [Mass fraction] 98 % Ron Doreen Other [employer] Other 08-15-2023 10:20-0500 Systolic blood pressure 164 mm[Hg] Ron Doreen Other [employer] Other 08-13-2023 15:40-0500 Body height 168.91 cm Ron Doreen Other [employer] Other 08-13-2023 15:40-0500 Body mass index (BMI) [Ratio] 30.24 kg/m2 Ron Doreen Other [employer] Other 08-13-2023 15:40-0500 Body temperature 97.2 [degF] Ron Doreen Other [employer] Other 08-13-2023 15:40-0500 Body weight 86.27 kg Ron Doreen Other [employer] Other 08-13-2023 15:40-0500 Diastolic blood pressure 79 mm[Hg] Ron Doreen Other [employer] Other 08-13-2023 15:40-0500 Respiratory rate 18 /min Ron Doreen Other [employer] Other 08-13-2023 15:40-0500 SaO2% (BldA) [Mass fraction] 98 % Ron Doreen Other [employer] Other 08-13-2023 15:40-0500 Systolic blood pressure 186 mm[Hg] Ron Doreen Other [employer] Other 08-01-2023 13:00-0400 Body height 168.91 cm Ron Doreen Other [employer] Other 08-01-2023 13:00-0400 Body mass index (BMI) [Ratio] 30.55 kg/m2 Ron Doreen Other [employer] Other 08-01-2023 13:00-0400 Body temperature 97.8 [degF] Ron Doreen Other [employer] Other 08-01-2023 13:00-0400 Body weight 87.18 kg Ron Doreen Other [employer] Other 08-01-2023 13:00-0400 Diastolic blood pressure 72 mm[Hg] Orn Doreen Other [employer] Other 08-01-2023 13:00-0400 Respiratory rate 18 /min Ron Doreen Other [employer] Other 08-01-2023 13:00-0400 SaO2% (BldA) [Mass fraction] 98 % Ron Doreen Other [employer] Other 08-01-2023 13:00-0400 Systolic blood pressure 160 mm[Hg] Ron Doreen Other [employer] Other 06-24-2023 11:40-0400 Body height 168.91 cm Ron Doreen Other [employer] Other 06-24-2023 11:40-0400 Body mass index (BMI) [Ratio] 29.89 kg/m2 Ron Doreen Other [employer] Other 06-24-2023 11:40-0400 Body temperature 97.3 [degF] Ron Doreen Other [employer] Other 06-24-2023 11:40-0400 Body weight 85.28 kg Ron Doreen Other [employer] Other 06-24-2023 11:40-0400 Diastolic blood pressure 75 mm[Hg] Ron Doreen Other [employer] Other 06-24-2023 11:40-0400 Respiratory rate 18 /min Ron Doreen Other [employer] Other 06-24-2023 11:40-0400 SaO2% (BldA) [Mass fraction] 99 % Ron Doreen Other [employer] Other 06-24-2023 11:40-0400 Systolic blood pressure 129 mm[Hg] Ron Doreen Other [employer] Other 06-06-2023 15:20-0400 Body height 168.91 cm Ron Doreen Other [employer] Other 06-06-2023 15:20-0400 Body mass index (BMI) [Ratio] 29.92 kg/m2 Ron Doreen Other [employer] Other 06-06-2023 15:20-0400 Body temperature 96.5 [degF] Ron Doreen Other [employer] Other 06-06-2023 15:20-0400 Body weight 85.37 kg Ron Doreen Other [employer] Other 06-06-2023 15:20-0400 Diastolic blood pressure 49 mm[Hg] Ron Doreen Other [employer] Other 06-06-2023 15:20-0400 Respiratory rate 18 /min Ron Doreen Other [employer] Other 06-06-2023 15:20-0400 SaO2% (BldA) [Mass fraction] 99 % Ron Doreen Other [employer] Other 06-06-2023 15:20-0400 Systolic blood pressure 128 mm[Hg] Ron Doreen Other [employer] Other 04-30-2023 11:40-0400 Body height 168.91 cm Ron Doreen Other [employer] Other 04-30-2023 11:40-0400 Body mass index (BMI) [Ratio] 30.52 kg/m2 Ron Doreen Other [employer] Other 04-30-2023 11:40-0400 Body temperature 96.9 [degF] Ron Doreen Other [employer] Other 04-30-2023 11:40-0400 Body weight 87.09 kg Ron Doreen Other [employer] Other 04-30-2023 11:40-0400 Diastolic blood pressure 80 mm[Hg] Ron Doreen Other [employer] Other 04-30-2023 11:40-0400 Respiratory rate 18 /min Ron Doreen Other [employer] Other 04-30-2023 11:40-0400 SaO2% (BldA) [Mass fraction] 98 % Ron Doreen Other [employer] Other 04-30-2023 11:40-0400 Systolic blood pressure 150 mm[Hg] Ron Doreen Other [employer] Other 04-06-2023 09:00-0400 Body height 168.91 cm Ron Doreen Other [employer] Other 04-06-2023 09:00-0400 Body mass index (BMI) [Ratio] 30.36 kg/m2 Ron Doreen Other [employer] Other 04-06-2023 09:00-0400 Body weight 86.64 kg Ron Doreen Other [employer] Other 04-06-2023 09:00-0400 Diastolic blood pressure 54 mm[Hg] Ron Doreen Other [employer] Other 04-06-2023 09:00-0400 Respiratory rate 18 /min Ron Doreen Other [employer] Other 04-06-2023 09:00-0400 SaO2% (BldA) [Mass fraction] 98 % Ron Doreen Other [employer] Other 04-06-2023 09:00-0400 Systolic blood pressure 144 mm[Hg] Ron Doreen Other [employer] Other 04-02-2023 14:40-0400 Body height 168.91 cm Ron Doreen Other [employer] Other 04-02-2023 14:40-0400 Body mass index (BMI) [Ratio] 30.55 kg/m2 Ron Doreen Other [employer] Other 04-02-2023 14:40-0400 Body temperature 97 [degF] Ron Doreen Other [employer] Other 04-02-2023 14:40-0400 Body weight 87.18 kg Ron Doreen Other [employer] Other 04-02-2023 14:40-0400 Diastolic blood pressure 76 mm[Hg] Ron Doreen Other [employer] Other 04-02-2023 14:40-0400 Respiratory rate 18 /min Ron Doreen Other [employer] Other 04-02-2023 14:40-0400 SaO2% (BldA) [Mass fraction] 98 % Ron Doreen Other [employer] Other 04-02-2023 14:40-0400 Systolic blood pressure 183 mm[Hg] Ron Doreen Other [employer] Other 03-07-2023 09:20-0400 Body height 168.91 cm Ron Doreen Other [employer] Other 03-07-2023 09:20-0400 Body mass index (BMI) [Ratio] 30.52 kg/m2 Ron Doreen Other [employer] Other 03-07-2023 09:20-0400 Body temperature 97.1 [degF] Ron Doreen Other [employer] Other 03-07-2023 09:20-0400 Body weight 87.09 kg Ron Doreen Other [employer] Other 03-07-2023 09:20-0400 Diastolic blood pressure 72 mm[Hg] Ron Doreen Other [employer] Other 03-07-2023 09:20-0400 Respiratory rate 18 /min Ron Doreen Other [employer] Other 03-07-2023 09:20-0400 SaO2% (BldA) [Mass fraction] 97 % Ron Doreen Other [employer] Other 03-07-2023 09:20-0400 Systolic blood pressure 130 mm[Hg] Ron Doreen Other [employer] Other 12-20-2022 13:20-0400 Body height 168.91 cm Ron Doreen Other [employer] Other 12-20-2022 13:20-0400 Body mass index (BMI) [Ratio] 30.68 kg/m2 Ron Doreen Other [employer] Other 12-20-2022 13:20-0400 Body temperature 97.1 [degF] Ron Doreen Other [employer] Other 12-20-2022 13:20-0400 Body weight 87.54 kg Ron Doreen Other [employer] Other 12-20-2022 13:20-0400 Diastolic blood pressure 72 mm[Hg] Ron Doreen Other [employer] Other 12-20-2022 13:20-0400 Respiratory rate 18 /min Ron Doreen Other [employer] Other 12-20-2022 13:20-0400 SaO2% (BldA) [Mass fraction] 99 % Ron Doreen Other [employer] Other 12-20-2022 13:20-0400 Systolic blood pressure 139 mm[Hg] Ron Doreen Other [employer] Other 11-05-2022 14:00-0500 Body height 168.91 cm Ron Doreen Other [employer] Other 11-05-2022 14:00-0500 Body mass index (BMI) [Ratio] 30.59 kg/m2 Ron Doreen Other [employer] Other 11-05-2022 14:00-0500 Body temperature 96.8 [degF] Ron Doreen Other [employer] Other 11-05-2022 14:00-0500 Body weight 87.27 kg Ron Doreen Other [employer] Other 11-05-2022 14:00-0500 Diastolic blood pressure 72 mm[Hg] Ron Doreen Other [employer] Other 11-05-2022 14:00-0500 Respiratory rate 18 /min Ron Doreen Other [employer] Other 11-05-2022 14:00-0500 SaO2% (BldA) [Mass fraction] 98 % Ron Doreen Other [employer] Other 11-05-2022 14:00-0500 Systolic blood pressure 157 mm[Hg] Ron Doreen Other [employer] Other 09-27-2022 16:00-0500 Body height 168.91 cm Jana Monson Other [employer] Other 09-27-2022 16:00-0500 Body mass index (BMI) [Ratio] 30.55 kg/m2 Jana Monson Other [employer] Other 09-27-2022 16:00-0500 Body temperature 96.8 [degF] Jana Monson Other [employer] Other 09-27-2022 16:00-0500 Body weight 87.18 kg Jana Monson Other [employer] Other 09-27-2022 16:00-0500 Diastolic blood pressure 73 mm[Hg] Jana Monson Other [employer] Other 09-27-2022 16:00-0500 Respiratory rate 18 /min Jana Monson Other [employer] Other 09-27-2022 16:00-0500 SaO2% (BldA) [Mass fraction] 98 % Jana Monson Other [employer] Other 09-27-2022 16:00-0500 Systolic blood pressure 159 mm[Hg] Jana Monson Other [employer] Other 08-22-2022 12:00-0500 Body height 168.91 cm Ron Doreen Other [employer] Other 08-22-2022 12:00-0500 Body mass index (BMI) [Ratio] 30.65 kg/m2 Ron Doreen Other [employer] Other 08-22-2022 12:00-0500 Body temperature 96.9 [degF] Ron Doreen Other [employer] Other 08-22-2022 12:00-0500 Body weight 87.45 kg Ron Doreen Other [employer] Other 08-22-2022 12:00-0500 Diastolic blood pressure 75 mm[Hg] Ron Doreen Other [employer] Other 08-22-2022 12:00-0500 Respiratory rate 18 /min Ron Doreen Other [employer] Other 08-22-2022 12:00-0500 SaO2% (BldA) [Mass fraction] 96 % Ron Doreen Other [employer] Other 08-22-2022 12:00-0500 Systolic blood pressure 121 mm[Hg] Ron Doreen Other [employer] Other 05-08-2022 10:20-0400 Body height 168.91 cm Ron Doreen Other [employer] Other 05-08-2022 10:20-0400 Body mass index (BMI) [Ratio] 31.54 kg/m2 Ron Doreen Other [employer] Other 05-08-2022 10:20-0400 Body temperature 97.6 [degF] Ron Doreen Other [employer] Other 05-08-2022 10:20-0400 Body weight 89.99 kg Ron Doreen Other [employer] Other 05-08-2022 10:20-0400 Diastolic blood pressure 68 mm[Hg] Ron Doreen Other [employer] Other 05-08-2022 10:20-0400 Respiratory rate 18 /min Ron Doreen Other [employer] Other 05-08-2022 10:20-0400 SaO2% (BldA) [Mass fraction] 98 % Ron Doreen Other [employer] Other 05-08-2022 10:20-0400 Systolic blood pressure 131 mm[Hg] Ron Doreen Other [employer] Other 04-14-2022 10:20-0400 Body height 168.91 cm Ron Doreen Other [employer] Other 01-18-2022 10:20-0400 Body mass index (BMI) [Ratio] 31 kg/m2 Ron Doreen Other [employer] Other 01-18-2022 10:20-0400 Body temperature 96.4 [degF] Ron Doreen Other [employer] Other 01-18-2022 10:20-0400 Body weight 88.45 kg Ron Doreen Other [employer] Other 01-18-2022 10:20-0400 Diastolic blood pressure 74 mm[Hg] Ron Doreen Other [employer] Other 01-18-2022 10:20-0400 Respiratory rate 18 /min Ron Doreen Other [employer] Other 01-18-2022 10:20-0400 SaO2% (BldA) [Mass fraction] 97 % Ron Doreen Other [employer] Other 01-18-2022 10:20-0400 Systolic blood pressure 170 mm[Hg] Ron Doreen Other [employer] Other Encounters Encounter Date Encounter Type Care Provider Facility Start: 04-21-2025 End: 04-21-2025 ambulatory Dhruv uRbi MD Work Phone: [facility] Work Phone: Start: 04-21-2025 End: 04-21-2025 Departed Referred Dmitriy Lynne MD -LAB [facility] Start: 03-23-2025 End: 03-23-2025 Office outpatient visit 15 minutes Greg Tineo MD Work Phone: [facility] Comment on above: Seborrheic keratosis (Primary Dx); Seborrheic keratosis, inflamed; Solar purpura; Lentigines Start: 03-23-2025 End: 03-23-2025 ambulatory GREG TINEO Not Available Start: 03-23-2025 End: 03-23-2025 Bamboo flowsviry Tineo MD Work Phone: [facility] Start: 03-23-2025 End: 03-23-2025 Bamklaus Tineo MD Work Phone: [facility] Start: 03-07-2025 End: 03-12-2025 Refill Marie Garcia APRN-[employer] Work Phone: [facility] Comment on above: Med Refill Start: 02-25-2025 End: 02-25-2025 ambulatory EHAB [facility] Start: 02-15-2025 End: 02-15-2025 Bamboo flowsviry Mayer MD Work Phone: [facility] Start: 02-15-2025 End: 02-15-2025 Bamboo flowsviry Mayer MD Work Phone: [facility] Start: 02-15-2025 End: 02-15-2025 Office outpatient visit 25 minutes Lorraine Mayer MD Work Phone: [facility] Comment on [...] Not Available Start: 01-14-2025 End: 01-14-2025 ambulatory [facility] Work Phone: Start: 01-14-2025 End: 01-14-2025 Patient encounter procedure [facility] Eliel Work Phone: Start: 01-05-2025 Non-patient / Non-visit [facility] Work Phone: Start: 12-21-2024 End: 12-21-2024 Telephone encounter Cary Goldman CMA [facility] Start: 12-12-2024 End: 2024 Refill Cristina Salamanca [employer]ACER-[employer] Work Phone: [facility] Comment on above: Med Refill Start: 11-27-2024 End: 11-27-2024 ambulatory ALEJANDRO [facility] Start: 11-16-2024 End: 11-16-2024 Bamboo flowsheet Lorraine Mayer MD Work Phone: [facility] Start: 11-16-2024 End: 11-16-2024 Parmjit flowsviry Mayer MD Work Phone: [facility] Start: 11-16-2024 End: 11-16-2024 Office outpatient visit 25 minutes Lorraine Mayer MD Work Phone: [facility] Comment on [...] flowsheet Ga Josh Ming DPM Work Phone: [facility] Start: 09-28-2024 End: 09-28-2024 Bamboo flowsheet Ga Josh Ming DPM Work Phone: [facility] Start: 09-28-2024 End: 09-28-2024 Patient encounter procedure Ga Lai DPM Work Phone: [facility] Comment on above: Onychomycosis (Prima ry Dx); Pain in both feet; Corns and callosities; Type 2 diabetes mellitus without complication, with long-term 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 (CMS/HCC) Start: 09-28-2024 End: 09-28-2024 ambulatory GA LAI Not Available Start: 09-05-2024 End: 09-11-2024 Refill Marie Garcia APRN-[employer] Work Phone: [facility] Comment on above: Med Refill Start: 07-13-2024 End: 07-13-2024 Bamboo flowsheet Lorraine Mayer MD Work Phone: [facility] Start: 07-13-2024 End: 07-13-2024 Bamboo flowsheet Lorraine Mayer MD Work Phone: [facility] Start: 07-13-2024 End: 07-13-2024 Office outpatient visit 25 minutes Lorraine Mayer MD Work Phone: [facility] Comment on [...] Bamboo flowsheet Ga Lai DPM Work Phone: [facility] Start: 06-25-2024 End: 06-25-2024 Bamboo flowsheet Ga Lai DPM Work Phone: [facility] Start: 06-25-2024 End: 06-25-2024 Patient encounter procedure Ga Lai DPM Work Phone: [facility] Comment on above: Onychomycosis (Prima ry Dx); Pain in both feet; Corns and callosities; Type 2 diabetes mellitus without complication, with long-term 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 ([facility]) Start: 06-25-2024 End: 06-25-2024 ambulatory GA LAI Not Available Start: 06-04-2024 End: 06-04-2024 Bamboo flowsviry Tineo MD Work Phone: [facility] Start: 06-04-2024 End: 06-04-2024 Bamboo cornelio Tineo MD Work Phone: [facility] Start: 06-04-2024 End: 06-04-2024 Office outpatient visit 15 minutes Greg Tineo MD Work Phone: [facility] Comment on above: Granuloma annulare ( Primary Dx) Start: 06-04-2024 End: 06-04-2024 ambulatory GREG TINEO Not Available Start: 05-25-2024 End: 05-25-2024 Patient encounter procedure Greg Tineo MD Work Phone: [facility] Comment on above: Rash and other nonsp ecific skin eruption (Primary Dx) Start: 05-25-2024 End: 05-25-2024 ambulatory GREG A TOBIASITTI Not Available Start: 05-11-2024 End: 05-11-2024 ambulatory [facility] Start: 04-21-2024 End: 04-21-2024 ambulatory GREG TINEO Not Available Start: 04-16-2024 End: 04-16-2024 ambulatory GA LAI Not Available Start: 03-18-2024 End: 03-23-2024 Refill Marie Garcia [employer] Work Phone: [facility] Comment on above: Med Refill Start: 01-17-2024 End: 01-17-2024 ambulatory THUAN LUCAS [facility] Start: 01-17-2024 End: 01-17-2024 Office outpatient visit 15 minutes Sarthak Rueda MD Work Phone: 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 Start: 12-21-2023 Refill Luis dominique PA-C Work Phone: [facility] Comment on above: Med Refill Start: 11-18-2023 End: 11-18-2023 ambulatory Ron Doreen Other [employer] Other Start: 11-18-2023 Office outpatient vi sit 15 minutes Ron Doreen [facility] Start: 11-04-2023 (INJECTION) INJECTION Ron Doreen [facility] Start: 11-04-2023 End: 11-04-2023 ambulatory Ron Doreen Other [employer] Other Start: 10-15-2023 End: 10-15-2023 ambulatory Ron Doreen Other [employer] Other Start: 10-15-2023 Office outpatient vi sit 15 minutes Ron Doreen [facility] Start: 10-08-2023 End: 10-08-2023 ambulatory Aziz Bakhous Other [employer] Other Start: 10-08-2023 Telephone encounter Aziz Bakhous [facility] Start: 09-15-2023 End: 09-15-2023 ambulatory Ron Doreen Other [employer] Other Start: 09-15-2023 Telephone encounter Ron Doreen [facility] Start: 09-09-2023 End: 09-09-2023 ambulatory Ron Doreen Other [employer] Other Start: 09-09-2023 Telephone encounter Ron Doreen [facility] Start: 08-27-2023 (INJECTION) INJECTION Aziz Bakhous [facility] Start: 08-27-2023 End: 08-27-2023 ambulatory Aziz Bakhous Other [employer] Other Start: 08-15-2023 (INJECTION) INJECTION Ron Doreen [facility] Start: 08-15-2023 End: 08-15-2023 ambulatory Ron Doreen Other [employer] Other Start: 08-13-2023 (INJECTION) INJECTION Ron Doreen [facility] Start: 08-13-2023 End: 08-13-2023 ambulatory Ron Doreen Other [employer] Other Start: 08-01-2023 End: 08-01-2023 ambulatory Ron Doreen Other [employer] Other Start: 08-01-2023 Office outpatient vi sit 15 minutes Ron Doreen [facility] Start: 06-24-2023 End: 06-24-2023 ambulatory Ron Doreen Other [employer] Other Start: 06-24-2023 Office outpatient vi sit 10 minutes Ron Doreen [facility] Start: 06-06-2023 End: 06-06-2023 ambulatory Ron Doreen Other [employer] Other Start: 06-06-2023 Office outpatient vi sit 15 minutes Ron Doreen [facility] Start: 04-30-2023 End: 04-30-2023 ambulatory Ron Doreen Other [employer] Other Start: 04-30-2023 Office outpatient vi sit 15 minutes Ron Doreen [facility] Start: 04-06-2023 (INJECTION) INJECTION Ron Doreen [facility] Start: 04-06-2023 End: 04-06-2023 ambulatory Ron Doreen Other [employer] Other Start: 04-06-2023 Telephone encounter Ron Doreen [facility] Start: 04-02-2023 End: 04-02-2023 ambulatory Ron Doreen Other [employer] Other Start: 04-02-2023 Office outpatient vi sit 15 minutes Ron Doreen [facility] Start: 04-02-2023 Telephone encounter Ron Doreen [facility] Start: 03-07-2023 End: 03-07-2023 ambulatory Ron Doreen Other [employer] Other Start: 03-07-2023 Office outpatient vi sit 15 minutes Ron Doreen [facility] Start: 01-22-2023 End: 01-23-2023 ambulatory RON DOREEN Facility: Start: 12-20-2022 End: 12-20-2022 ambulatory Ron Doreen Other [employer] Other Start: 12-20-2022 Office outpatient vi sit 15 minutes Ron Doreen [facility] Start: 12-17-2022 End: 12-18-[address] DHRUV RUBI . Facility:[facility] Start: 12-10-2022 End: 12-11-2022 ambulatory RON DOREEN Facility:[facility] Start: 11-20-2022 End: 11-21-[address] BENI APARICIO Facility:[facility] Start: 11-05-2022 End: 11-05-2022 ambulatory Ron Doreen Other [employer] Other Start: 11-05-2022 Office outpatient vi sit 15 minutes Ron Doreen [facility] Start: 10-29-2022 End: 10-30-[address] JANA MONSON Facility:[facility] Start: 10-24-2022 End: 10-24-[address] LILLIAN ACOSTA . Facility:[facility] Start: 10-24-2022 End: 10-25-[address] DHRUV RUBI . Facility:[facility] Start: 09-27-2022 End: 09-27-2022 ambulatory Jana Monson Other [employer] Other Start: 09-27-2022 Office outpatient vi sit 15 minutes Jana Monson [facility] Start: 09-18-2022 End: 09-19-2022 ambulatory RON DOREEN Facility:[facility] Start: 09-11-2022 End: 09-11-[address] DHRUV RUBI . Facility:[facility] Start: 08-22-2022 End: 08-22-2022 ambulatory Ron Doreen Other [employer] Other Start: 08-22-2022 Office outpatient vi sit 15 minutes Ron Doreen [facility] Start: 08-13-2022 End: 08-14-2022 ambulatory RON DOREEN Facility:[facility] Start: 06-25-2022 End: 06-26-[address] DHRUV RUBI . Facility:[facility] Start: 06-18-2022 End: 06-18-[address] DHRUV RUBI . Facility:[facility] Start: 06-01-2022 End: 06-02-[address] YANET HUERTA Facility:[facility] Start: 05-28-2022 End: 05-28-2022 ambulatory Ron Doreen Other [employer] Other Start: 05-28-2022 Telephone encounter Ron Doreen [facility] Start: 05-21-2022 End: 05-22-[address] DHRUV RUBI . Facility:[facility] Start: 05-16-2022 End: 05-16-2022 ambulatory Ron Doreen Other [employer] Other Start: 05-16-2022 Telephone encounter Ron Doreen [facility] Start: 05-10-2022 End: 05-10-2022 ambulatory Ron Doreen Other [employer] Other Start: 05-10-2022 Telephone encounter Ron Doreen [facility] Start: 05-08-2022 End: 05-08-2022 ambulatory Ron Doreen Other [employer] Other Start: 05-08-2022 Office outpatient vi sit 25 minutes Ron Doreen [facility] Start: 05-02-2022 End: 05-03-2022 ambulatory RON DOREEN Facility:[facility] Start: 04-24-2022 End: 04-24-2022 ambulatory Aziz Bakhous Other [employer] Other Start: 04-24-2022 Telephone encounter Aziz Bakhous [facility] Start: 01-18-2022 End: 01-18-2022 ambulatory Ron Doreen Other [employer] Other Start: 01-18-2022 Office outpatient vi sit 25 minutes Corina [facility] Start: 05-21-2017 End: 05-22-2017 Ambulatory DEFAULT PHYSICIAN Facility:[facility] Procedures Date Procedure Procedure Detail [...] vessel coronary artery bypass graft Marck Lazo [employer] Work Phone: History of coronary artery bypass grafting H/O four vessel coronary artery bypass graft Marie Garcia [employer] TEACHER Work Phone: Plan of Treatment Date Care Activity Detail Author Start: 03-23-2026 End: 03-23-2026 Patient encounter procedure 03/23/2026 10:00 AM EDT Office Visit [facility] [address] [place] [address] Greg Tineo MD [address] [place] [address] [facility] Start: 06-14-2025 End: 06-14-2025 Patient encounter procedure 06/14/2025 10:10 AM EDT Office Visit [facility] [address] [place] [address] Lorraine Mayer MD [address] [place], [place] [id number] [facility] Start: 06-07-2025 Influenza vaccination [facility] Start: 04-21-2025 Urine culture [facility] Start: 04-21-2025 Bacteria identified in Urine by Culture Urine Culture [facility] Start: 03-23-2025 End: 03-23-2025 Patient encounter procedure 03/23/2025 2:30 PM EDT Office Visit [facility] [address] [place] [address] Greg Tineo MD [address] [place], [place] [id number] Arrived [facility] Comment on above: Arrived Start: 03-16-2025 End: 03-16-2025 Patient encounter procedure 03/16/2025 8:35 AM EDT Office Visit [facility] [address] [place] [address] Greg Tineo MD [address] [place] [address] [facility] Start: 02-15-2025 End: 02-15-2025 Patient encounter procedure [facility] Comment on above: Type 2 diabetes mellitus with hyperglyce constance, with long-term 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 ([facility]) Start: 01-16-2025 Adult BMI Screening Adult BMI Screening [facility] Start: 01-16-2025 Tobacco Screening Tobacco Screening [facility] Start: 12-31-2024 End: 12-31-2024 Patient encounter procedure 12/31/2024 10:15 AM EDT Procedure Visit [facility] [address] [place] [address] Ga Lai DPM [address] [place] [address] [facility] Start: 11-16-2024 End: 11-16-2024 Patient encounter procedure [facility] Comment on above: Type 2 diabetes mellitus with hyperglyce constance, with long-term 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 ([facility]) Start: 09-28-2024 End: 09-28-2024 [facility] Comment on above: Arrived Start: 07-13-2024 End: 07-13-2024 Patient encounter procedure [facility] Comment on above: Type 2 diabetes mellitus with hyperglyce constance, with long-term 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 ([facility]) Start: 06-25-2024 End: 06-25-2024 Patient encounter procedure [facility] Comment on above: Arrived Start: 06-07-2024 COVID-19 Vaccine ( season) COVID-19 Vaccine () [facility] Start: 06-07-2024 Influenza vaccination [facility] Start: 06-04-2024 End: 06-04-2024 [facility] Comment on above: Arrived Start: 03-19-2024 Adult BMI Screening Adult BMI Screening [facility] Start: 03-19-2024 Tobacco Screening Tobacco Screening [facility] Start: 02-21-2024 End: 02-21-2024 Patient encounter procedure 02/21/2024 2:00 PM EDT Office Visit [facility] [address] [place] [address] Thuan Lucas MD [address] [place] [address] [facility] Start: 01-24-2024 End: 01-16-2025 Basic metabolic 2000 panel - Serum or Plasma Basic Metabolic Panel Lab Routine Stage 4 chronic kidney disease ([facility]) Essential hypertension Expected: 01/24/2024 (Approximate), Expires: 01/16/2025 [facility] Work Phone: Comment on above: Expected: 01/24/2024 (Approximate), Expi res: 01/16/2025 Start: 01-24-2024 End: 01-24-2024 Clinical Support 01/24/2024 10:30 AM EDT Clinical Support [facility] [address] [place] [id number] [facility] Start: 01-17-2024 End: 01-17-2024 Patient encounter procedure 01/17/2024 1:00 PM EDT Office Visit [facility] [address] [place] [address] Sarthak Rueda MD [address] [place] [address] Thuan Lucas MD [address] [place] [address] [facility] Start: 06-07-2023 COVID-19 Vaccine ( season) COVID-19 Vaccine () [facility] Start: 06-07-2023 Influenza vaccination Influenza Vaccine [facility] Start: 12-28-2021 Depression Screening Depression Screening [facility] Start: 2009 Fall Risk Screening Fall Risk Screening [facility] Start: 1994 Administration of varicella zoster vaccine Zoster (Shingles) Vaccine (1 of 2) [facility] Start: 12-15-1963 DTaP,Tdap and Td Vaccines (1 - Tdap) DTaP,Tdap and Td Vaccines (1 - Tdap) [facility] Start: 1962 Adult BMI Follow Up Plan Adult BMI Follow Up Plan [facility] Start: 1956 Depression Screening Depression Screening [facility] Start: 1944 Medicare Annual Wellness Visit Medicare Annual Wellness Visit [facility] Dermatopathology exam Dermatopat hology exam Pathology and Cytology Timed Rash and other nonspecific skin eruption Release Upon Ordering for 1 Occurrences starting 05/25/2024 [facility] [employer] Work Phone: Comment on above: Release Upon Ordering for 1 Occurrences starting 05/25/2024 End: 12-12-2025 Lipid panel Lipid panel Lab Routine Medication management 1 Occurrences starting 2024 until 12/12/2025 [email or web address] Work Phone: Comment on above: 1 Occurrences starting 2024 until 12/12/2025 End: 12-12-2025 Magnesium [Mass/volume] in Serum or Plasma Magnesium Lab Routine Medication management 1 Occurrences starting 2024 until 12/12/2025 [email or web address] Work Phone: Comment on above: 1 Occurrences starting 2024 until 12/12/2025 Renal function 2000 panel - Serum or Plasma [facility] Immunizations Immunization Date Immunization Notes Care Provider Fa cili 07-11-2023 influenza virus vacc ine, unspecified formulation Lorraine Mayer MD Work Phone: [facility] 07-10-2022 unknown vaccine or immune globulin Ga Lai DPM Work Phone: [facility] 07-20-2021 unknown vaccine or immune globulin Ga Lai DPM Work Phone: [facility] 07-18-2020 Seasonal trivalent influenza vaccine, adjuvanted, preservative free Luis Quiles PA-C Work Phone: [facility] 07-18-2020 influenza virus vacc ine, unspecified formulation Luis Kb PA-C Work Phone: [facility] 07-22-2019 Seasonal trivalent influenza vaccine, adjuvanted, preservative free Luis Kb PA-C Work Phone: [facility] 07-20-2019 influenza, injectabl e, quadrivalent, preservative free Ga Lai DPM Work Phone: [facility] 07-14-2018 Seasonal trivalent influenza vaccine, adjuvanted, preservative free Luis Kb PA-C Work Phone: [facility] 07-15-2017 pneumococcal conjuga te vaccine, 13 valent Luis Kb PA-C Work Phone: [facility] 07-08-2017 influenza, high dose seasonal, preservative-free Luis Kb PA-C Work Phone: [facility] 07-25-2016 influenza, high dose seasonal, preservative-free Luis Kb PA-C Work Phone: [facility] 07-11-2015 influenza, high dose seasonal, preservative-free Luis Kb PA-C Work Phone: [facility] 07-16-2014 influenza, seasonal, injectable Luis Kb PA-C Work Phone: [facility] 07-10-2013 influenza, seasonal, injectable Luis Kb PA-C Work Phone: [facility] 08-08-2012 influenza virus vacc ine, unspecified formulation Luis Kb PA-C Work Phone: [facility] 08-08-2012 pneumococcal polysaccharide vaccine, 23 valent Luis Kb PA-C Work Phone: [facility] 07-11-2011 influenza virus vacc ine, unspecified formulation Luis Kb PA-C Work Phone: [facility] 08-15-2010 influenza virus vacc ine, unspecified formulation Luis Kb PA-C Work Phone: [facility] 07-26-2009 influenza virus vacc ine, unspecified formulation Luis Kb PA-C Work Phone[facility] 08-04-2008 influenza virus vacc ine, unspecified formulation Luis Kb PA-C Work Phone: [facility] 08-13-2007 influenza virus vacc ine, unspecified formulation Luis Kb PA-C [facility] 08-11-2004 influenza virus vacc ine, unspecified formulation Luis Kb PA-C Work Phone: [facility] 08-09-2003 influenza virus vacc ine, unspecified formulation Luis Kb PA-C [facility] 08-09-2003 pneumococcal polysaccharide vaccine, 23 valent Luis Kb PA-C Work Phone: [facility] Payers Date Payer Category Payer Self-pay 2021 Medicaid AET MEDICARE A DVANTAGE [id number] 2021 Medicare [id number] 2021 Medicare O AETNA MEDICARE [id number] 1959 Medicare [id number] [id number] 1944 Unknown [id number] 2.16.840.1.773119.3.579.2.593 1944 Unknown [id number] 2.16.840.1.306976.3.579.2.593 1944 Unknown [id number] 2.16.840.1.012707.3.579.2.593 1944 Unknown [id number] 2.16.840.1.662464.3.579.2.593 1944 Unknown [id number] 2.16.840.1.133356.3.579.2.593 1944 Unknown [id number] 2.16.840.1.655223.3.579.2.593 1944 Unknown [id number] 2.16.840.1.315894.3.579.2.593 1944 Unknown [id number] 2.16.840.1.152176.3.579.2.593 1944 Unknown [id number] 2.16.840.1.151553.3.579.2.593 1944 Unknown [id number] 2.16.840.1.182725.3.579.2.593 1944 Unknown [id number] 2.16.840.1.950236.3.579.2.593 1944 Unknown [id number] 2.16.840.1.008688.3.579.2.593 1944 Unknown [id number] 2.16.840.1.743354.3.579.2.593 1944 Unknown [id number] 2.16.840.1.922264.3.579.2.593 1944 Unknown [id number] 2.16.840.1.767518.3.579.2.593 1944 Unknown [id number] 2.16.840.1.017881.3.579.2.593 1944 Unknown [id number] 2.16.840.1.385480.3.579.2.1286 1944 Unknown [id number] 2.16.840.1.220202.3.579.2.1259 1944 Unknown [id number] 2.16.840.1.057536.3.579.2.1259 1944 Unknown [id number] 2.16.840.1.061859.3.579.2.1259 1944 Unknown [id number] 2.16.840.1.358621.3.579.2.1259 1944 Unknown [id number] 2.16.840.1.969640.3.579.2.1259 1944 Unknown [id number] 2.16.840.1.548212.3.579.2.1259 1944 Unknown [id number] 2.16.840.1.814049.3.579.2.1259 1944 Unknown [id number] 2.16.840.1.465711.3.579.2.1259 1944 Unknown [id number] 2.16.840.1.714625.3.579.2.1259 1944 Unknown [id number] 2.16.840.1.593118.3.579.2.1259 Medicare Medicare [id number] Unknown Unknown [facility] [id number] Unknown [id number] 2.16.840.1.024188.3.579.2.531 Social History Date Type Detail Facility Unknown if ever smoked [employer] Other Start: 06-25-2024 End: 09-28-2024 Sex Assigned At [employer] Other Start: 03-14-2023 End: 06-15-2024 Tobacco smoking status [facility] Ex-smoker [facility] End: 10-07-1969 History of tobacco use Current smoker [facility] End: 10-07-1969 History of tobacco use Cigarette Smoker [facility] Start: 03-14-2023 End: 01-17-2024 Tobacco use and exposure Smokeless tobacco non-user [facility] Start: 06-25-2024 End: 03-23-2025 Alcoholic beverage intake Not Asked [facility] Start: 06-25-2024 End: 09-28-2024 History of Social function [facility] Start: 10-21-2023 Alcohol Comment caffeine intake: 1-2 cups per day [facility] Start: 1945 Sex assigned at Not on file [facility] Start: 03-19-2023 End: 01-17-2024 Alcoholic beverage intake Ex-drinker (finding) [facility] Do you belong to any clubs or organizations such as evangelical groups, unions, fraternal or athletic groups, or school groups? No [facility] Are you now , , , , never or living with a partner? [facility] How hard is it for y ou to pay for the very basics like food, housing, medical care, and heating Not hard at all [facility] Do you feel stress - tense, restless, nervous, or anxious, or unable to sleep at night because your mind is troubled all the time - these days [OSQ] Not at all [facility] Start: 05-21-2017 End: 01-14-2025 Sex Female (finding) [employer] [facility] Start: 1945 Sex Assigned At Female [facility] Goals Date Patient Goal Desired Activity /State [...] year ago Established patient Lesions: Location: Left baptist Duration: 1 year Quality: denies pain, denies [...] or higher 2. SEBORRHEIC KERATOSIS, INFLAMED Left [place] and brown stuck on verrucous scaly papule [...] limited to risks of scarring, darker or ppa teacher pigmentary changes, recurrence, incomplete removal and infection. [...] or tenderness Cryotherapy, skin lesion - Left [place] 3. SOLAR PURPURA (2) Left Forearm - [...] Visit: 1 year documented in this encounter [facility] 02-25-[address] [facility] Cardiology Clinic Note Chief Complaint: [...] gallops. RESPIRATORY: CTAB, (more content not included)... [facility] 02-15-2025 History of Present [...] said last GFR around 30 with her senior estimator. Interim History: 03/2023 Follow-up visit on 03/12/2023 [...] she states GFR is 30, per her senior estimator. Interim History: 08/24 Followup visit on 08/25/18 [...] reading of her . Lab done in [facility] BUN 28/creatinine 1.43, GFR 36, [...] MG capsule 1 capsule, Every 12 hours kgfpjmcaceuu-aduc-jpqhabkj-folic acid (Centrum) chewable tablet 1 tablet, Daily [...] Basal cell carcinoma CAD (coronary artery disease) ([facility]) Chronic kidney disease, stage III (moderate) (HCC) ([facility] [facility] Current use of insulin ([facility] Diabetes ([facility]) Frozen shoulder GERD (gastroesophageal reflux disease) Gout 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[facility]) HLD (hyperlipidemia) ([facility]) HTN (hypertension) ([facility] Hypoglycemia Hypothyroidism ([facility]) Obesity with body mass index (BMI) of 30.0 to 39.9 Squamous cell skin cancer Thyroid disease ([facility]) Type 2 diabetes mellitus with other diabetic kidney complication ([facility]) Vitamin D deficiency Past Surgical History: Procedure [...] hyperglycemia, with long-term 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 ([facility]) - POCT glucose manually resulted - POCT glycosylated hemoglobin (Hb A1C) docked device Vitamin D deficiency Microalbuminuria Hyperlipemia, mixed ([facility]) Primary hypertension ([facility] Insulin long-term use ([facility] 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 documented in this encounter [facility] 12-21-2024 Miscellaneous Notes Phoned pt and lm on to call office for any further refills. Letter mailed to pt. documented in this encounter [facility] 12-21-2024 Telephone encounter Note Phoned pt and lm on to call office for any further refills. Letter mailed to pt. [facility] 12-12-2024 Miscellaneous Notes Last OV 01/17/24 Mg 01/01/24 Mg pended; refill letter mailed documented in this encounter [facility] 12-12-2024 Miscellaneous Notes Last OV 01/17/24 Lipid profile 07/08/23 Lipid panel pended; refill letter mailed documented in this encounter [facility] 12-12-2024 Telephone encounter Note Last OV 01/17/24 Mg 01/01/24 Mg pended; refill letter mailed [facility] 12-12-2024 Telephone encounter Note Last OV 01/17/24 Lipid profile 07/08/23 Lipid panel pended; refill letter mailed [facility] 11-27-2024 Note SUBJECTIVE Reason for Visit: Kylah [...] for a follow-up after being discharged from [facility] in February 2024. She was admitted for [...] Diagnosis Acquired hypothyroidism Anemia Arthritis 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 Combined forms of [...] 0.1 mg, o (more content not included)... [facility] 11-27-2024 Note Patient here for 6 m o follow up CAD, hypertension, MR, and diastolic dysfunction. Had echo in Jun 2024. She presented to [facility] ED last week with concerns of elevated BP. She takes clonidine PRN for elevated SBP > 200. Denies chest pain and SOB. Does feel palpitations. She wonders if the clonidine patches would help her. Review of Systems Cardiovascular: Positive for irregular heartbeat and palpitations. Musculoskeletal: Positive for myalgias. All other systems reviewed and are negative. [facility] 11-16-2024 History of Present [...] said last GFR around 30 with her senior estimator. Interim History: 03/2023 Follow-up visit on 03/12/2023 [...] she states GFR is 30, per her senior estimator. Interim History: 08/24 Followup visit on 08/25/18 [...] reading of her . Lab done in [facility] BUN 28/creatinine 1.43, GFR 36, [...] MG capsule 1 capsule, Every 12 hours xzdfzmhluzrg-wlvz-fuvpqnkg-folic acid (Centrum) chewable tablet 1 tablet, Daily [...] 39.9 Squamous cell skin cancer Thyroid disease ([facility]) Type 2 diabetes mellitus with other diabetic kidney complication ([facility]) Vitamin D deficiency Past Surgical History: Procedure [...] hyperglycemia, with long-term 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 ([facility]) - POCT glucose manually resulted - POCT [...] months (around 03/16/2025). documented in this encounter [facility] 09-06-2024 History of Present illness [...] if problems arise. documented in this encounter [facility] 09-05-2024 Miscellaneous Notes [facility] 01/17/24 [facility]24 documented in this encounter [facility] 09-05-2024 Telephone encounter Note [facility] 01/17/24 [facility] 01/01/24 [facility] 07-13-2024 History of Present illness Narrative Kylah [...] said last GFR around 30 with her senior estimator. Interim History: 03/2023 Follow-up visit on 03/12/2023 [...] she states GFR is 30, per her senior estimator. Interim History: 08/24 Followup visit on 08/25/18 [...] reading of her . Lab done in [facility] BUN 28/creatinine 1.43, GFR 36, [...] MG capsule 1 capsule, Every 12 hours kjpqqezlrwiw-qqoa-nfhqzbey-folic acid (Centrum) chewable tablet 1 tablet, Oral, [...] Basal cell carcinoma CAD (coronary artery disease) ([facility]) Chronic kidney disease, stage III (moderate) (HCC) ([facility]) Current use [facility] insulin ([facility] Diabetes ([facility]) Frozen shoulder GERD (gastroesophageal reflux disease) Gout 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[facility]) HLD (hyperlipidemia) ([facility]) HTN (hypertension) ([facility]) Hypoglycemia Hypothyroidism ([facility]) Obesity with body mass index (BMI) of 30.0 to 39.9 Squamous cell skin cancer Thyroid disease ([facility]) Type 2 diabetes mellitus with other diabetic kidney complication ([facility]) Vitamin D deficiency Past Surgical History: Procedure [...] hyperglycemia, with long-term 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 ([facility]) - POCT glucose manually resulted We will continue long-acting 30 units does not remember the name, short-acting 07/18/15 according to meal size Vitamin D deficiency Microalbuminuria Hyperlipemia, mixed ([facility]) Primary hypertension ([facility]) Insulin long-term use ([facility]) 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[facility]) Continue levothyroxine 150 and Cytomel 5 Encounter for dietary consultation Chronic renal disease, stage IV ([facility]) Follow up in about 4 months (around 11/13/2024). documented in this encounter [facility] 06-25-2024 History of Present illness Narrative Images [...] the callous site. documented in this encounter [facility] 06-04-2024 History of Present illness Narrative Follow up Diagnosis: Rash unspecified Location: hands Procedure performed: Punch biopsy Status: not as painful Date of procedure: 05/25/2024 Current treatment: Betamethasone Dipro 0.05% cream, here for biopsy results Suture Removal Patient here for suture removal: No complaints of redness, drainage or swelling at site, compliant with wound care. Location: Right Hypothenar [place] Procedure Performed: Punch biopsy Date of Procedure: 05/25/2024 Medications: Betamethasone All pertinent medical history, medications, and allergies were reviewed. General Exam: alert , oriented to person, place, and time , normal affect, well appearing Unaccompanied A focused exam completed based on patient reported problems, see below: 1. Granuloma annulare Left Hand - Anterior, Right Hand - Anterior Arpelar indurated annular plaques. Flaring today, but improved [...] any new/changing lesions documented in this encounter [facility] 05-25-2024 History of Present illness [...] and other nonspecific skin eruption Right Hypothenar [place] Arpelar plaques Biopsy today, see procedure note. Start Betamethasone cream bid when flared, hold when clear. Lesion biopsy - Right Hypothenar [place] Type of biopsy: punch Informed consent: discussed [...] pending biopsy results documented in this encounter [facility] 05-11-[address] [facility] Cardiology Clinic Note Chief Complaint: Patient here for follow up [facility] discharge back in February 2024. She was [...] ventricular gram/pressure Indications (more content not included)... [facility] 03-18-2024 Miscellaneous Notes Asad 01/17/24 Mg 07/08/23 -per 07/09/23 refill encounter Pt needs mg, orders in place. documented in this encounter [facility] 03-18-2024 Telephone encounter Note Asad 01/17/24 Mg 07/08/23 -per 07/09/23 refill encounter Pt needs mg, orders in place. [facility] 01-17-2024 History of Present illness Narrative Kylah Robin Date of visit: 01/17/2024 Date of : 1945 Age: 78 y.o. Patient Active Problem List Diagnosis Diabetes mellitus ([facility]) Hypertensive urgency Arthritis Dyspnea Other forms of angina pectoris ([facility]) Unstable angina ([facility]) Obesity (BMI 30-39.9) H/O four vessel coronary artery bypass graft Paroxysmal atrial fibrillation ([facility]) 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 Obesity (BMI 30-39.9) Essential hypertension Other hyperlipidemia Class 1 obesity in adult Stage 4 chronic kidney disease ([facility]) 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 She was recently hospitalized at [facility] for poorly controlled blood pressure. Her blood [...] pain Chronic kidney disease COVID-19 Diabetes mellitus ([facility]) Dyspnea Edema GERD (gastroesophageal reflux disease) Gout Hyperlipidemia Hypertensive urgency Hypothyroidism Lower back pain Mitral regurgitation Osteopenia Ventricular hypertrophy No data recorded No data recorded No data recorded Past Surgical History: Procedure Laterality Date CARDIAC CATHETERIZATION CATARACT EXTRACTION, BILATERAL CHOLECYSTECTOMY COLONOSCOPY Coronary angiogram and left ventricular gram/pressure N/A 12/28/2020 Performed by Kassie Nicole MD at [facility] CARDIAC CATH LABS CORONARY ARTERY BYPASS GRAFT X 4 with OCASIO and SVG x3 / EVH LEFT upper and lower AND RIGHT upper LEG / LUCAS N/A 12/29/2020 Performed by Herrera De Paz MD at [facility] / TX INCOMPLETE [...] min Stress: No Stress Concern Present (12/28/2020) [employer] - Occupational Stress Questionnaire Feeling of Stress : Not at all Social Connections: Moderately Integrated (12/28/2020) Social Connection and Isolation Panel [NHANES] Frequency of Communication with Friends and Family: More than three times a week Frequency of Social Gatherings with Friends and Family: More than three times a week Attends [employer] Services: More than 4 times per year [...] tablet Reorder IMPRESSIONS/PLAN 1. Paroxysmal atrial fibrillation ([facility]) - POCT EKG - carvediloL (COREG) 25 mg tablet; Take 2 tablets (50 mg total) by mouth in the morning and 2 tablets (50 mg total) before bedtime. Dispense: 180 tablet; Refill: 3 2. Stage 4 chronic kidney disease ([facility]) - Basic Metabolic Panel; Future 3. 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 ([facility]) 4. Other forms of angina pectoris ([facility]) 5. Essential hypertension - Basic Metabolic Panel; Future 6. 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 7. H/O four [...] BNP. 2. Atherosclerosis of coronary arteries of [place] heart without angina pectoris. Patient has had [...] RUBI MD Referring Physician: Dhruv Rubi MD [facility] [place] [address] documented in this encounter [facility] 01-16-2024 Miscellaneous Notes Called patient to remind them to bring their most current copy of their medication list with them to their appt. Patient verbalizes understanding. documented in this encounter [facility] 01-16-2024 Telephone encounter Note Called patient to remind them to bring their most current copy of their medication list with them to their appt. Patient verbalizes understanding. [facility] 11-18-2023 Evaluation note Encounter Date Diagnosis Assessment [...] potassium improved with dietary restriction and Lasix. [employer] Other 01-29-2024 Evaluation note* Encounter Date Diagnosis Assessment Notes Treatment Notes Treatment Clinical Notes Oct, Anemia of renal disease (ICD-10 - D63.1) Oct, CKD (chronic kidney disease) stage 4, GFR 15-29 ml/min (ICD-10 - N18.4) [employer] Other 01-09-2024 Evaluation note* Encounter Date Diagnosis [...] potassium improved with dietary restriction and Lasix. [employer] Other 12-04-2023 Evaluation note* Encounter Date Diagnosis [...] 4, GFR 15-29 ml/min (ICD-10 - N18.4) [employer] Other 11-21-2023 Evaluation note* Encounter Date Diagnosis Assessment Notes Treatment Notes Treatment Clinical Notes Aug, Anemia of renal disease (ICD-10 - D63.1) Aug, CKD (chronic kidney disease) stage 4, GFR 15-29 ml/min (ICD-10 - N18.4) [employer] Other 11-09-2023 Evaluation note* Encounter Date Diagnosis [...] of kidney mass hydronephrosis or kidney stones. [employer] Other 10-26-2023 Evaluation note* Encounter Date Diagnosis [...] potassium improved with dietary restriction and Lasix. [employer] Other 09-18-2023 Evaluation note* Encounter Date Diagnosis [...] potassium improved with dietary restriction and Lasix. [employer] Other 08-31-2023 Evaluation note* Encounter Date Diagnosis [...] potassium improved with dietary restriction and Lasix. [employer] Other 07-25-2023 Evaluation note* Encounter Date Diagnosis [...] to normal with dietary restriction and Lasix. [employer] Other 07-01-2023 Evaluation note* Encounter Date Diagnosis Assessment Notes Treatment Notes Treatment Clinical Notes Apr, CKD (chronic kidney disease) stage 4, GFR 15-29 ml/min (ICD-10 - N18.4) Apr, Anemia of renal disease (ICD-10 - D63.1) [employer] Other 06-27-2023 Evaluation note* Encounter Date Diagnosis [...] to normal with dietary restriction and Lasix. [employer] Other 06-01-2023 Evaluation note* Encounter Date Diagnosis [...] potassium diet and provide information about it. [employer] Other 03-16-2023 Evaluation note* Encounter Date Diagnosis [...] to Continue Vit D 5000 units daily [employer] Other 01-30-2023 Evaluation note* Encounter Date Diagnosis [...] to Continue Vit D 5000 units daily [employer] Other 12-22-2022 Evaluation note* Encounter Date Diagnosis [...] to Continue Vit D 5000 units daily [employer] Other 11-16-2022 Evaluation note* Encounter Date Diagnosis [...] to Continue Vit D 5000 units daily [employer] Other 08-04-2022 Evaluation note* Encounter Date Diagnosis Assessment Notes Treatment Notes Treatment Clinical Notes May, Hypertensive chronic kidney disease with stage 1 through stage 4 chronic kidney disease, or unspecified chronic kidney disease (ICD-10 - I12.9) [employer] Other 08-02-2022 Evaluation note* Encounter Date Diagnosis [...] 300 mg daily May, Type 2 diabetes dinoy itus with diabetic chronic kidney disease (ICD-10 [...] to Continue Vit D 5000 units daily [employer] Other 07-19-2022 Evaluation note* Encounter Date Diagnosis Assessment Notes Treatment Notes Treatment Clinical Notes Apr, Hypertensive chronic kidney disease with stage 1 through stage 4 chronic kidney disease, or unspecified chronic kidney disease (ICD-10 - I12.9) [employer] Other 04-14-2022 Evaluation note* Encounter Date Diagnosis [...] to take Vit D 1000 units daily [employer] Other Evaluation noteNo [employer] Other Evaluation note* Diagnosis Type 2 diabetes mellitus with hyperglycemia, with long-term 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 ([facility])- Primary Vitamin D deficiency Microalbuminuria Proteinuria Hyperlipemia, mixed ([facility]) Mixed hyperlipidemia Primary hypertension ([facility]) Unspecified essential hypertension Insulin long-term use ([facility]) Encounter for long-term (current) use of insulin 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[facility]) Chronic lymphocytic thyroiditis Encounter for dietary consultation Chronic renal disease, stage IV ([facility]) Chronic kidney disease, Stage IV (severe) [facility]* Diagnosis Rash and other nonspecific skin eruption- Primary documented in this encounter [facility]* Diagnosis Granuloma annulare- Primary Other specified erythematous condition documented in this encounter [facility]* Diagnosis Onychomycosis- Primary Dermatophytosis of nail Pain in both feet Corns and callosities Type 2 diabetes mellitus without complication, with long-term 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 ([facility]) documented in this encounter [facility]* Diagnosis Onychomycosis- Primary Dermatophytosis of nail Pain in both feet Corns and callosities Type 2 diabetes mellitus without complication, with long-term 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 ([facility]) documented in this encounter [facility]* Diagnosis Type 2 diabetes mellitus with hyperglycemia, with long-term 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 ([facility])- Primary Vitamin D deficiency Microalbuminuria Proteinuria Hyperlipemia, mixed ([facility]) Mixed hyperlipidemia Primary hypertension ([facility]) Unspecified essential hypertension Insulin long-term use ([facility]) Encounter for long-term (current) use of insulin 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[facility]) Chronic lymphocytic thyroiditis Encounter for dietary consultation Chronic renal disease, stage IV ([facility]) Chronic kidney disease, Stage IV (severe) documented [facility]* Diagnosis 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 Hypertensive urgency Shortness of breath Paroxysmal atrial fibrillation ([facility]) Atrial fibrillation Localized edema Edema documented in this encounter [facility]* Diagnosis Paroxysmal atrial fibrillation ([facility] Primary Atrial fibrillation Stage 4 chronic kidney disease ([facility]) 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 ([facility]) Other forms of angina pectoris ([facility]) Essential hypertension Unspecified essential hypertension 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 Hypertensive urgency Shortness of breath Localized edema Edema documented in this encounter [facility]* Diagnosis Medication management- Primary documented in this encounter [facility]* Diagnosis Medication management- Primary 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 Hypertensive urgency Shortness of breath Paroxysmal atrial fibrillation ([facility]) Atrial fibrillation Localized edema Edema [facility]* Diagnosis Onset Date Resolution Status [...] kidney disease acute January 14, 2025 8:59am [facility] Work Phone: Evaluation note* Diagnosis Type 2 diabetes mellitus with hyperglycemia, with long-term 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 ([facility])- Primary Vitamin D deficiency Microalbuminuria Proteinuria Hyperlipemia, mixed ([facility]) Mixed hyperlipidemia Primary hypertension ([facility]) Unspecified essential hypertension Insulin long-term use ([facility]) Encounter for long-term (current) use of insulin 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[facility]) Chronic lymphocytic thyroiditis Encounter for dietary consultation Chronic renal disease, stage IV ([facility]) Chronic kidney disease, Stage IV (severe) documented in this encounter [facility]* Diagnosis Hyperlipidemia, unspecified hyperlipidemia type- Primary 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 Hypertensive urgency Shortness of breath Paroxysmal atrial fibrillation ([facility]) Atrial fibrillation Localized edema Edema documented in this encounter [facility] SystemEvaluation note* Diagnosis Seborrheic keratosis- Primary Seborrheic keratosis, inflamed Solar purpura Lentigines documented in this encounter [facility] HealthcareEvaluation noteNo assessment information availableTrihealth [facility] Work Phone: History general Narrative - Reported* [...] History SEE ABOVE Hospitalization History COVID 09/2020 [employer] Other history general Narrative - Reported* Type [...] History SEE ABOVE Hospitalization History COVID 09/2020 [employer] Other history general Narrative - Reported* Type [...] History SEE ABOVE Hospitalization History COVID 09/2020 [employer] Other History general Narrative - ReportedNort Sync.ME Other [place] general Narrative - Reported* Type Description Date [...] History SEE ABOVE Hospitalization History COVID 09/2020 [employer] Other InstructionsNot on filedocumented in this encounter [...] for referral (narrative)No reason for referral information [facility] Work Phone: Summary Purpose Family [...] section and content) DATE CREATED AUTHOR 04/02/2018 [facility] DATE CREATED AUTHOR AUTHOR'S ORGANIZ ATION 01/27/2023 [facility] DATE CREATED AUTHOR AUTHOR'S ORGANIZ ATION 01/18/2024 [facility] DATE CREATED AUTHOR AUTHOR'S ORGANIZ ATION 03/03/2025 [facility] DATE CREATED AUTHOR AUTHOR'S ORGANIZ ATION 03/26/2025 [facility] DATE CREATED AUTHOR AUTHOR'S ORGANIZ ATION 04/27/2025 [facility] REASON FOR VISIT (unrecogniz ed [...] April 21, 2025 End: April 21, 2025 [employer] Relationship Specialty Start Date End Date Dhruv Rubi MD [address] [facility] [address] PCP - General Family Medicine 10/22/23 [employer] Relationship Specialty Start Date End Date Dhruv Rubi MD [address] [facility] [address] PCP - General Family Medicine 10/22/23 [employer] Relationship Specialty Start Date End Date Dhruv Rubi MD [address] [facility] [address] PCP - General Family Medicine 10/22/23 [employer] Relationship Specialty Start Date End Date Dhruv Rubi MD [address] [facility] [address] PCP - General Family Medicine 10/22/23 [employer] Relationship Specialty Start Date End Date Dhruv Rubi MD [address] [facility] [address] PCP - General Family Medicine 10/22/23 [employer] Relationship Specialty Start Date End Date Dhruv Rubi MD [address] [facility] [address] PCP - General Family Medicine 10/22/23 [employer] Relationship Specialty Start Date End Date Dhruv Rubi MD [address] [facility] [address] PCP - General Family Medicine 10/22/23 [employer] Relationship Specialty Start Date End Date Dhruv Rubi MD [address] [place] [phone] PCP - General Family Medicine 10/22/23 [employer] Relationship Specialty Start Date End Date Dhruv Rubi MD [address] [place] [address] PCP - General Family Medicine 10/22/23 [employer] Relationship Specialty Start Date End Date Dhruv Rubi MD [address] [place] [address] PCP - General Family Medicine 10/20/20 [employer] Relationship Specialty Start [place] [address] [place], [place] [phone] PCP - General Family Medicine 10/20/20 [employer] Relationship Specialty Start Date End Date Dhruv Rubi MD [address] [place] [phone] PCP - General Family Medicine 10/20/20 [employer] Relationship Specialty Start Date End Date Dhruv Rubi MD [address] [place] [address] PCP - General Family Medicine 10/20/20 [employer] Relationship Specialty Start Date End Date Dhruv Rubi MD PCP - General Family Medicine 10/20/20 [employer] Relationship Specialty Start Date End Date Dhruv Rubi MD PCP - General Family Medicine 10/20/20 [employer] Relationship Specialty Start Date End Date Dhruv Rubi MD PCP - General Family Medicine 10/20/20 [employer] Relationship Specialty Start Date End Date Dhruv [...] January 14, 2025 End: January 14, 2025 [employer] Relationship Specialty Start Date End Date Dhruv Rubi MD PCP - General Family Medicine 10/22/23 [employer] Relationship Specialty Start Date End Date Dhruv Rubi MD PCP - General Family Medicine 10/22/23 [employer] Relationship Specialty Start Date End Date Dhruv Rubi MD PCP - General Family Medicine 10/20/20 [employer] Relationship Specialty Start Date End Date Dhruv Rubi MD PCP - General Family Medicine 10/22/23 [employer] Relationship Specialty Start Date End Date Dhruv [...] BE BASED ON THE PRIMARY CLINICAL RECORDS. [facility] [employer] [facility]. provides no warranty or guarantee of the accuracy or completeness of information in this document.
--- OUTSIDE RECORDS SUMMARY | 2025-05-25 15:15 | XMS_ITS | CCD ---
Author Organization [facility] Care Team Providers Care Portfolio Assistant Name Role Phone PHYSICIAN, DEFAULT Unavailable Unavailable [...] Unavailable Dhruv Rubi MD Primary Care Provider [phone] Dhruv Rubi MD Primary Care Provider [...] Unavailable Dhruv Rubi MD Primary Care Provider [phone] Dmitriy Lynne MD Attending Provider [phone] Dmitriy Lynne Attending Unavailable Dmitriy Lynne Admitting Unavailable Dhruv Rubi Primary Care Unavailable Allergies Allergy Classification Reported Allergen(s) Allergy Type Date of Onset Reaction(s) Facility (20 sources) amLODIPine; Translations: [AMLODIPINE] Drug Allergy 03-28-20 05 Unknown, [facility] Repository (20 sources) Amoxicillin / Clavulanate Drug Allergy 11-23-19 [facility] Other (20 sources) Contrast media Propensity to adverse reactions Unknown [facility] Other (2 sources) Doxazosin; Translations: [doxazosin] Drug Allergy Unknown [facility] Other (20 sources) Sulfamethoxazole / Trimethoprim Drug Allergy 11-23-19 [facility] Other (20 sources) Doxazosin; Translations: [DOXAZOSIN] Drug Allergy 11-23-19 21 Unknown, Rash [facility] Repository (9 sources) Amoxicillin / Clavulanate; Translations: [Augmentin] Drug Allergy 11-16-19 16 Unknown [facility] Repository (1 source) amLODIPine Drug Allergy 04-25-20 14 [facility] Repository (1 source) Sulfamethoxazole / Trimethoprim Drug Allergy 03-09-20 13 [facility] Repository (2 sources) Sulfamethoxazole / Trimethoprim; Translations: [SULFAMETHOXAZOLE-T RIMETHOPRIM] Drug Allergy 08-04-20 15 [facility] Repository (20 sources) IODINATED CONTRAST MEDIA; Translations: [IODINATED CONTRAST MEDIA] Propensity to adverse reactions to drug (disorder) 11-23-19 21 Other [facility] Repository (20 sources) AMOXICILLIN-POT CLAVULANATE; Translations: [AMOXICILLIN-POT CLAVULANATE] Propensity to adverse reactions to drug (disorder) 11-23-19 21 Unknown [facility] Repository (20 sources) Amoxicillin Drug Allergy 03-12-20 Unknown [facility] Healthcare (20 sources) Doxazosin Drug Allergy 03-12-20 Unknown [facility] Healthcare (20 sources) Sulfamethoxazole; Translations: [SULFAMETHOXAZOLE] Allergy to substance 03-12-20 Unknown [facility] Healthcare (20 sources) Trimethoprim Drug Allergy 03-12-20 Unknown [facility] Healthcare (3 sources) Clavulanate; Translations: [clavulanic acid] Drug Allergy 01-15-20 Unknown Reaction [facility] (1 source) amLODIPine Drug Allergy 01-15-20 [facility] Repository (1 source) Amoxicillin Drug Allergy 01-15-20 [facility] Repository (1 source) Doxazosin Drug Allergy 01-15-20 [facility] Repository (1 source) Sulfamethoxazole Drug Allergy 01-15-20 [facility] Repository (1 source) Trimethoprim Drug Allergy 01-15-20 [facility] Repository Medications Current Medications Medication [...] coronary artery bypass graft , Atherosclerosis of [place] coronary artery of [place] heart without angina pectoris , Paroxysmal atrial [...] (LIPITOR) 80 mg tablet Indications: Atherosclerosis of [place] coronary artery of [place] heart without angina pectoris , H/O four [...] / sennosides, halfway 8.6 mg oral tablet (5 sources) take 1 tablet by mouth every twelve hours Sennosides-Docusate Sodium 8.6-50 MG 1 tablet in the evening as needed Orally every 12 hours Active epoetin johnna-epbx 74234 UNT/ML Injectable Solution [Retacrit] (14 sources) Retacrit 90029 U NIT/ML as directed Injection Active ferrous [...] ( ) take [address] [facility] every twenty-four [...] For Her 50 + - Orally Active tjbosctqjuhq-rcfz-rezfrxur-f olic acid (Centrum) chewable tablet (20 sources) multivitamin-iro g-rfgruytk-azytp acid (Centrum) chewable tablet Chew 1 tablet Daily Active multivitamin-iro c-diqwalwm-ltxfy acid (Centrum) chewable tablet Chew 1 tablet [...] not crush, chew, or split. Active retacrit 50375 unit/ml solution (5 sources) Retacrit 85506 U NIT/ML as directed Injection Active Sennosides-Docusate [...] L Take by mouth daily. 0 Active Jjkjzuxtdnbf-Bynd-Nxqcc Acid (Centrum) 18-400 mg-mcg Tablet (2 sources) Start: 10-09-2019 End: 06-15-2024 take 1 tablet by mouth once daily Igrvltqzqnlz-Vkxg-Wuwmg Acid (Centrum) 18-400 mg-mcg Tablet Discontinued 1 [...] angina pectoris; Translations: [Atherosclerotic heart disease of [place] coronary artery without angina pectoris] Onset: 1 [...] sources) Long-term 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; Translations: [[facility] (current) use of insulin] 07-13-2024 Episodic Other [...] Nom (U) ORGANISM: Escherichia coli (ESBL) (O:ESCCOLESBL) [place] Count >100,000 Aerobic AIDEN Charge (NMIC56) ------ [...] RESISTANT TO ALL B-LACTAM DRUGS. PERFORMED BY: [facility] [address] [place] [address] PATHOLOGIST RIGGING SLINGER CINTIA GLASGOW M.D. Normal The [facility] Comment on above: Performed By: #### C UU #### [facility] [address] No Panel Informationon 03-23 [facility] Healthcare Office Visiton 02-25-2025 Follow-up visit [id number] Garima Robine 1945 F Date Provider Department Center 02/25/2025 Yassine-STEFANO CATHREINE ANNIA Stacy Family History Family history unknown: Yes Level of Service:23234 [place] OFFICE/OUTPATIENT ESTABLISHED MOD MDM 30 MIN Normal [facility] Glucose (Bld) [Mass/Vol]on 0 02-15-2025 Glucose Blood, POC 238 mg/dL [facility] - Hematology and Cell countson 02-15-2025 HbA1c (Bld) [Mass fraction] 6.6 % [facility] No Panel Informationon 02-15 [facility] Erythrocyte distribution wid th Auto (RBC) [Ratio]on 01-05-2025 Erythrocyte distribution width (RBC) [Ratio] Erythrocyte distribution width [Ratio] by Automated count High 11.0-15.0 [facility] Estimated glomerular filtrat ion rate (GFR) non- Americanon 01-05-2025 GFR/1.73 sq M.predicted among non-blacks MDRD (S/P/Bld) [Vol rate/Area] Estimated glomerular filtration rate (GFR) non- Low >=60 mL/min/1.73m 2 [facility] Hematocrit Auto (Bld) [Volum e fraction]on 01-05-2025 Hematocrit (Bld) [Volume fraction] Hematocrit [Volume Fraction] of Blood by Automated count Low 36.0-48.0 [facility] Hemoglobin [Mass/volume] in Bloodon 01-05-2025 Hemoglobin (Bld) [Mass/Vol] Hemoglobin [Mass/volume] in Blood Low 12.0-16.0 [facility] Iron binding capacity [Mass/ volume] in Serum or Plasmaon 01-05-2025 Iron binding capacity [Mass/Vol] Iron binding capacity [Mass/volume] in Serum or Plasma Low 250.0-450.0 [facility] Iron saturation [Mass Fracti on] in Serum or Plasmaon 01-05-2025 Iron saturation [Mass fraction] Iron saturation [Mass Fraction] in Serum or Plasma [facility] Laboratory - Chemistry and C hemistry - challengeon 01-05-2025 Albumin [Mass/Vol] 3.3 g/dL Low 3.4-5.0 [facility] Calcium [Mass/Vol] 9.2 mg/dL 8.5-10.1 [facility] Chloride [Moles/Vol] 105 mmol/L 98-107 [facility] CO2 [Moles/Vol] 24.4 mmol/L 21.0-32.0 [facility] Creatinine [Mass/Vol] 1.89 mg/dL High 0.55-1.02 [facility] Ferritin [Mass/Vol] 499.0 ng/mL High 8.0-252.0 [facility] GFR/1.73 sq M.predicted MDRD (S/P/Bld) [Vol rate/Area] 31 mL/min/{1.73_m2} Low >=60 mL/min/1.73m 2 [facility] Glucose [Mass/Vol] 122 mg/dL High 74-106 [facility] Iron [Mass/Vol] 69.0 ug/dL 50.0-170.0 [facility] Magnesium [Mass/Vol] 1.9 mg/dL 1.8-2.4 [facility] Potassium [Moles/Vol] 4.7 mmol/L 3.5-5.1 [facility] Sodium [Moles/Vol] 141 mmol/L 136-145 [facility] Urate [Mass/Vol] 3.9 mg/dL 2.6-6.0 [facility] Urea nitrogen [Mass/Vol] 35.0 mg/dL High 7.0-18.0 [facility] Urea nitrogen/Creatinine [Mass ratio] 18.5 mg/mg [facility] Laboratory - Urinalysison Protein (U) [Mass/Vol] 108.9 mg/dL High <=11.9 [facility] Leukocytes [#/volume] correc jean for nucleated erythrocytes in Blood by Automated counon 01-05-2025 WBC corrected for nucl RBC Auto (Bld) [#/Vol] Leukocytes [#/volume] corrected for nucleated erythrocytes in Blood by Automated coun 4.0-11.0 [facility] MCH Auto (RBC) [Entitic mass ]on 01-05-2025 MCH (RBC) [Entitic mass] MCH [Entitic mass] by Automated count 26.7-34.0 [facility] MCHC Auto (RBC) [Mass/Vol]on 01-05-2025 MCHC (RBC) [Mass/Vol] MCHC [Mass/volume] by Automated count 29.9-35.2 [facility] MCV Auto (RBC) [Entitic vol] on 01-05-2025 MCV (RBC) [Entitic vol] MCV [Entitic volume] by Automated count 81.0-99.0 [facility] No Panel Informationon 01-05 Urine Random Creatinine 157.18 mg/dL 20.00-300. 00 [facility] 25-Hydroxy Vitamin D Total 30.9 ng/mL [facility] Comment on above: <20 ng/mL Vit D defi cient20-<30 ng/mL Vit D rpyuokdefbcw23-037 ng/mL Vit D sufficient>100 ng/mL Potential Toxicity Parathyroid Hormone (Intact) 73 pg/mL Abnormal 15-65 [facility] Comment on above: Performed at: - [address] [id number] Director: Ashok Benson PhD, Phone: [phone] Phosphorus Level 3.8 mg/dL 2.6-4.7 [facility] Platelet mean volume Auto (B ld) [Entitic vol]on 01-05-2025 Platelet mean volume (Bld) [Entitic vol] Platelet mean volume [Entitic volume] in Blood by Automated count Low 9.5-13.5 [facility] Platelets Auto (Bld) [#/Vol] on 01-05-2025 Platelets (Bld) [#/Vol] Platelets [#/volume] in Blood by Automated count 150-450 [facility] RBC Auto (Bld) [#/Vol]on RBC (Bld) [#/Vol] Erythrocytes [#/volume] in Blood by Automated count Low 4.20-5.40 [facility] Serum or plasma anion gap de terminationon 01-05-2025 Anion gap [Moles/Vol] Serum or plasma anion gap determination [facility] Urine protein/creatinine rat ioon 01-05-2025 Protein/Creatinine (U) [Ratio] Urine protein/creatinine ratio [facility] Office Visiton 11-27-2024 Follow-up visit [id number] Kylah Robin 1945 F Date Provider Department Center 11/27/2024 [id number] YOON Family History Family history unknown: Yes Level of Service:21758 [place] OFFICE/OUTPATIENT ESTABLISHED MOD MDM 30 MIN Normal [facility] Glucose (Bld) [Mass/Vol]Orde red By: Maria Antonia Mo on 11-16-2024 Glucose Blood, POC 220 mg/dL [facility] - Hematology and Cell countson 11-16-2024 HbA1c (Bld) [Mass fraction] 7 % [facility] No Panel InformationOrdered By: Maria Antonia Mo on 11-16-2024 [facility] Glucose (Bld) [Mass/Vol]Orde red By: Maria Antonia Mo on 07-13-2024 Glucose Blood, POC 180 mg/dL [facility] No Panel Informationon 05-25 Type of biopsy: [...] Specimen sent for: H&E Photo taken yes [facility] No Panel InformationOrdered By: Philomena Salter on 05-25-2024 [facility] Healthcare Office Visiton 05-11-2024 Follow-up visit [id number] Kylah Robin 1945 F Date Provider Department Center 05/11/2024 Yassine-STEFANO CATHERINE [facility] No family history on file Level of Service:95844 [place] OFFICE/OUTPATIENT ESTABLISHED MOD MDM 30 MIN Normal [facility] POCT EKGon 01-17-20[facility] AND PLATELon 2022 Hematocrit (Bld) [Volume fraction] 28.8 % Critically low 36.0-48.0 [facility] Comment on above: Performed By: #### H H #### Laboratory [address] [place] [address] Dr. Ember Teague Hemoglobin (Bld) [Mass/Vol] 9.6 g/dL Critically low 12.0-16.0 [facility] Comment on above: Performed By: #### H H #### Laboratory [address] [place] [address] Dr. Ember Teague MCH (RBC) [Entitic mass] 30.7 pg Normal 26.7-34.0 [facility] Comment on above: Performed By: #### H H #### Laboratory [address] [place] [address] Dr. Ember Teague MCHC (RBC) [Mass/Vol] 33.3 g/dL Normal 29.9-35.2 [facility] Comment on above: Performed By: #### H H #### Laboratory [address] [place] [address] Dr. Ember Teague MCV (RBC) [Entitic vol] 92.0 fL Normal 81.0-99.0 [facility] Comment on above: Performed By: #### H H #### Laboratory [address] [place] [address] Dr. Ember Teague PLT 214 103/ul Normal 150-450 The Comment on above: Performed By: #### H H #### Laboratory [address] [place] [address] Dr. Ember Teague RBC 3.13 106/ul Critically low 4.20-5.40 [facility] Comment on above: Performed By: #### H H #### Laboratory [address] [place] [address] Dr. Ember Teague WBC 7.4 103/ul Normal 4.0-11.0 [facility] Comment on above: Performed By: #### H H #### Laboratory [address] [place] [address] Dr. Ember Teague MAGNESIUMon 01-22-2023 Magnesium [Mass/Vol] 1.8 mg/dL Normal 1.8-2.4 [facility] Comment on above: Performed By: #### M G, RENAL #### Laboratory [address] [place] [address] Dr. Ember Teague RENAL FUNCTION PANELon 01-22 Albumin [Mass/Vol] 3.6 g/dL Normal 3.4-5.0 [facility] Comment on above: Performed By: #### M G, RENAL #### Laboratory [address] [place] [address] Dr. Ember Teague Calcium [Mass/Vol] 9.7 mg/dL Normal 8.5-10.1 [facility] Comment on above: Performed By: #### M G, RENAL #### Laboratory [address] [place] [address] Dr. Ember Teague Chloride [Moles/Vol] 105 mmol/L Normal 98-107 The Comment on above: Performed By: #### M G, RENAL #### Laboratory [address] [place] [address] Dr. Ember Teague CO2 [Moles/Vol] 22.6 mmol/L Normal 21.0-32.0 [facility] Comment on above: Performed By: #### M G, RENAL #### Laboratory [address] [address] [address] Ember Teague Creatinine [Mass/Vol] 2.18 mg/dL Critically high 0.55-1.02 [facility] Comment on above: Performed By: #### M G, RENAL #### Laboratory [address] [address] [address] Ember Teague EGFR-AF [place] 26 mL/min/1.73m2 Critically low >=60 [facility] Comment on above: Performed By: #### M G, RENAL #### Laboratory [address] [address] [address] Ember Teague EGFR-NON AF [place] 22 mL/min/1.73m2 Critically low >=60 [facility] Comment on above: Performed By: #### Lico Stout, RENAL #### Laboratory [address] [address] [address] Ember Teague Glucose [Mass/Vol] 134 mg/dL Critically high 74-106 [facility] Comment on above: Performed By: #### M G, RENAL #### Laboratory [address] [address] [address] Ember Teague Phosphate [Mass/Vol] 4.6 mg/dL Normal 2.6-4.7 [facility] Comment on above: Performed By: #### M G, RENAL #### Laboratory [address] [address] [address] Ember Teague Potassium [Moles/Vol] 5.1 mmol/L Normal 3.5-5.1 [facility] Comment on above: Performed By: #### M G, RENAL #### Laboratory [address] [address] [address] Ember Teague Sodium [Moles/Vol] 138 mmol/L Normal 136-145 [facility] Comment on above: Performed By: #### M G, RENAL #### Laboratory [address] [address] [address] Ember Teague Urea nitrogen [Mass/Vol] 61.0 mg/dL Critically high 7.0-18.0 [facility] Comment on above: Performed By: #### M G, RENAL #### Laboratory [address] [place], [place] [address] Dr. Ember Teague MG MAMM SCREEN 3D MAY CADon 12-17-2022 MG MAMM SCREEN 3D MAY CAD Patient: KYLAH ROBIN Exam Date: 12/17/2022 : 1945 Gender:F Ordering : DR DHRUV RUBI . Admission #: [id number] Family : Order #: [id number] CLICK HERE TO VIEW EXAM RADIOLOGY REPORT [...] lung cancer at age 61. LOCATION: The BREAST COMPOSITION: Scattered areas fibroglandular density. FINDINGS: [...] MD on 12/17/2022 at 11:59 Normal The FERRITINon 12-10-2022 Ferritin [Mass/Vol] 681.0 ng/mL Critically high 8.0-252.0 The Comment on above: Performed By: #### P THINT #### Laboratory [address] [address] [address] Ember Teague HEMOGRAM AND PLATELon 2022 Hematocrit (Bld) [Volume fraction] 27.1 % Critically low 36.0-48.0 [facility] Comment on above: Performed By: #### C VDTBH #### Laboratory [address] [place] [address] Dr. Ember Teague Hemoglobin (Bld) [Mass/Vol] 9.7 g/dL Critically low 12.0-16.0 [facility] Comment on above: Performed By: #### C VDTBH #### Laboratory [address] [place] [address] Dr. Ember Teague MCH (RBC) [Entitic mass] 31.4 pg Normal 26.7-34.0 [facility] Comment on above: Performed By: #### C VDTBH #### Laboratory [address] [place] [address] Dr. Ember Teague MCHC (RBC) [Mass/Vol] 35.8 g/dL Critically high 29.9-35.2 [facility] Comment on above: Performed By: #### C VDTBH #### Laboratory [address] [place] [address] Dr. Ember Teague MCV (RBC) [Entitic vol] 87.7 fL Normal 81.0-99.0 [facility] Comment on above: Performed By: #### C VDTBH #### Laboratory [address] [place] [address] Dr. Ember Teague PLT 218 103/ul Normal 150-450 The Comment on above: Performed By: #### C VDTBH #### Laboratory [address] [place] [address] Dr. Ember Teague RBC 3.09 106/ul Critically low 4.20-5.40 [facility] Comment on above: Performed By: #### C VDTBH #### Laboratory [address] [place] [address] Dr. Ember Teague WBC 6.6 103/ul Normal 4.0-11.0 [facility] Comment on above: Performed By: #### C VDTBH #### Laboratory [address] [address] [address] Ember Teague IRON AND TIBCon 12-10-2022 % SATURATION 30.2 % Normal The Comment on above: Performed By: #### P THINT #### Laboratory [address] [address] [address] Ember Teague Iron [Mass/Vol] 84.0 ug/dL Normal 50.0-170.0 [facility] Comment on above: Performed By: #### P THINT #### Laboratory [address] [address] [address] Ember Teague TIBC DIRECT 278.0 ug/dL Normal 250.0-450.0 [facility] Comment on above: Performed By: #### P THINT #### Laboratory [address] [place] [address] Dr. Ember Teague XR FOOT MAY MIN [...] BENI APARICIO Date: 2022-11-20 14:03 Normal The HEMOGRAM AND PLATELon 2022 Hematocrit (Bld) [Volume fraction] 27.7 % Critically low 36.0-48.0 The Comment on above: Performed By: #### R ENAL #### Laboratory [address] [place] [address] Dr. Ember Teague Hemoglobin (Bld) [Mass/Vol] 10.0 g/dL Critically low 12.0-16.0 [facility] Comment on above: Performed By: #### R ENAL #### Laboratory [address] [place] [address] Dr. Ember Teague MCH (RBC) [Entitic mass] 31.6 pg Normal 26.7-34.0 [facility] Comment on above: Performed By: #### R ENAL #### Laboratory [address] [place] [address] Dr. Ember Teague MCHC (RBC) [Mass/Vol] 36.1 g/dL Critically high 29.9-35.2 [facility] Comment on above: Performed By: #### R ENAL #### Laboratory [address] [place] [address] Dr. Ember Teague MCV (RBC) [Entitic vol] 87.7 fL Normal 81.0-99.0 [facility] Comment on above: Performed By: #### R ENAL #### Laboratory [address] [place] [address] Dr. Ember Teague PLT 182 103/ul Normal 150-450 [facility] Comment on above: Performed By: #### R ENAL #### Laboratory [address] [place] [address] Dr. Ember Teague RBC 3.16 106/ul Critically low 4.20-5.40 [facility] Comment on above: Performed By: #### R ENAL #### Laboratory [address] [place] [address] Dr. Ember Teague WBC 6.8 103/ul Normal 4.0-11.0 [facility] Comment on above: Performed By: #### R ENAL #### Laboratory [address] [place] [address] Dr. Ember Teague PROF CHEM 8 (BAS METB)on Anion gap [Moles/Vol] 17.6 mmol/L Normal [facility] Comment on above: Performed By: #### C VDTBH #### Laboratory [address] [place] [address] Dr. Ember Teague Calcium [Mass/Vol] 9.0 mg/dL Normal 8.5-10.1 [facility] Comment on above: Performed By: #### C VDTBH #### Laboratory [address] [address] [address] Ember Teague Chloride [Moles/Vol] 104 mmol/L Normal 98-107 [facility] Comment on above: Performed By: #### C VDTBH #### Laboratory [address] [address] [address] Ember Teague CO2 [Moles/Vol] 22.2 mmol/L Normal 21.0-32.0 [facility] Comment on above: Performed By: #### C VDTBH #### Laboratory [address] [place] [address] Dr. Ember Teague Creatinine [Mass/Vol] 2.03 mg/dL Critically high 0.55-1.02 [facility] Comment on above: Performed By: #### C VDTBH #### Laboratory [address] [place] [address] Dr. Ember Teague EGFR-AF [place] 29 mL/min/1.73m2 Critically low >=60 [facility] Comment on above: Performed By: #### C VDTBH #### Laboratory [address] [place] [address] Dr. Ember Teague EGFR-NON AF [place] 24 mL/min/1.73m2 Critically low >=60 [facility] Comment on above: Performed By: #### C VDTBH #### Laboratory [address] [place] [address] Dr. Ember Teague Glucose [Mass/Vol] 154 mg/dL Critically high 74-106 [facility] Comment on above: Performed By: #### C VDTBH #### Laboratory [address] [place] [address] Dr. Ember Teague Potassium [Moles/Vol] 4.8 mmol/L Normal 3.5-5.1 [facility] Comment on above: Performed By: #### C VDTBH #### Laboratory [address] [address] [address] Ember Teague Sodium [Moles/Vol] 139 mmol/L Normal 136-145 [facility] Comment on above: Performed By: #### C VDTBH #### Laboratory [address] [address] [address] Ember Teague Urea nitrogen [Mass/Vol] 43.0 mg/dL Critically high 7.0-18.0 [facility] Comment on above: Performed By: #### C VDTBH #### Laboratory [address] [address] [address] Ember Teague Urea nitrogen/Creatinine [Mass ratio] 21.2 mg/mg Normal [facility] Comment on above: Performed By: #### C VDTBH #### Laboratory [address] [place] [address] Dr. Ember Teague CULTURE SPUTUMon 10-24-2022 CULTURE SPUTUM Culture Observations: Beta lactamase positive Isolate 1 Haemophilus influenzae Moderate growth of Normal [facility] Comment on above: Performed By: #### R ENAL #### Laboratory [address] [address] [address] Ember Teague SPUTUM GRAM STAINon 10-24-19 23 COMMENTS Normal [facility] Comment on above: Performed By: #### R ENAL #### Laboratory [address] [place] [address] Dr. Ember Teague DIPHTHEROIDS Normal [facility] Comment on above: Performed By: #### R ENAL #### Laboratory [address] [address] [address] Ember Teague EPITHELIALS >25 Normal The Comment on above: Performed By: #### R ENAL #### Laboratory [address] [address] [address] Ember Teague FUNGAL ELEMENTS Normal [facility] Comment on above: Performed By: #### R ENAL #### Laboratory [address] [place] [address] Dr. Ember Teague GRAM NEG BACILLI Normal The [facility] Comment on above: Performed By: #### R ENAL #### Laboratory [address] [address] [address] Ember Teague GRAM NEG DIPPLOCOCCI FEW Normal [facility] Comment on above: Performed By: #### R ENAL #### Laboratory [address] [address] [address] Ember Teague GRAM POS BACILLI FEW Normal [facility] Comment on above: Performed By: #### R ENAL #### Laboratory [address] [address] [address] Ember Teague GRAM POSITIVE COCCI MANY Normal [facility] Comment on above: Performed By: #### R ENAL #### Laboratory [address] [place] [address] Dr. Ember Teague WBC (Bld) [#/Vol] 10*3/uL Normal [facility] Comment on above: Performed By: #### R ENAL #### Laboratory [address] [place] [address] Dr. Ember Teague XR CHEST 2 Von [...] ANGELINA BRISENO Date: 2022-10-24 16:22 Normal The FERRITINon 09-18-2022 Ferritin [Mass/Vol] 612.0 ng/mL Critically high 8.0-252.0 [facility] Comment on above: Performed By: #### F ERR, FETIBC #### Laboratory [address] [place] [address] Dr. Ember Teague HEMOGRAM AND PLATELon 2021 Hematocrit (Bld) [Volume fraction] 28.1 % Critically low 36.0-48.0 [facility] Comment on above: Performed By: #### C BC #### Laboratory [address] [place] [address] Dr. Ember Teague Hemoglobin (Bld) [Mass/Vol] 9.7 g/dL Critically low 12.0-16.0 [facility] Comment on above: Performed By: #### C BC #### Laboratory [address] [place] [address] Dr. Ember Teague MCH (RBC) [Entitic mass] 31.3 pg Normal 26.7-34.0 [facility] Comment on above: Performed By: #### C BC #### Laboratory [address] [place] [address] Dr. Ember Teague MCHC (RBC) [Mass/Vol] 34.5 g/dL Normal 29.9-35.2 [facility] Comment on above: Performed By: #### C BC #### Laboratory [address] [place] [address] Dr. Ember Teague MCV (RBC) [Entitic vol] 90.6 fL Normal 81.0-99.0 [facility] Comment on above: Performed By: #### C BC #### Laboratory [address] [place] [address] Dr. Ember Teague PLT 183 103/ul Normal 150-450 [facility] Comment on above: Performed By: #### C BC #### Laboratory [address] [place] [address] Dr. Ember Teague RBC 3.10 106/ul Critically low 4.20-5.40 [facility] Comment on above: Performed By: #### C BC #### Laboratory [address] [place] [address] Dr. Ember Teague WBC 7.2 103/ul Normal 4.0-11.0 [facility] Comment on above: Performed By: #### C BC #### Laboratory [address] [place] [address] Dr. Ember Teague IRON AND TIBCon 09-18-2022 % SATURATION 36.0 % Normal [facility] Comment on above: Performed By: #### F ERR, FETIBC #### Laboratory [address] [address] [address] Ember Teague Iron [Mass/Vol] 77.0 ug/dL Normal 50.0-170.0 [facility] Comment on above: Performed By: #### F ERR, FETIBC #### Laboratory [address] [address] [address] Ember Teague TIBC DIRECT 214.0 ug/dL Critically low 250.0-450.0 [facility] Comment on above: Performed By: #### F ERR, FETIBC #### Laboratory [address] [address] [address] Ember Teague RENAL FUNCTION PANELon 09-18 Albumin [Mass/Vol] 3.7 g/dL Normal 3.4-5.0 [facility] Comment on above: Performed By: #### R ENAL #### Laboratory [address] [address] [address] Ember Teague Calcium [Mass/Vol] 9.5 mg/dL Normal 8.5-10.1 [facility] Comment on above: Performed By: #### R ENAL #### Laboratory [address] [address] [address] Ember Teague Chloride [Moles/Vol] 103 mmol/L Normal 98-107 The Comment on above: Performed By: #### R ENAL #### Laboratory [address] [address] [address] Ember Teague CO2 [Moles/Vol] 21.1 mmol/L Normal 21.0-32.0 [facility] Comment on above: Performed By: #### R ENAL #### Laboratory [address] [address] [address] Ember Teague Creatinine [Mass/Vol] 1.85 mg/dL Critically high 0.55-1.02 [facility] Comment on above: Performed By: #### R ENAL #### Laboratory [address] [address] [address] Ember Teague EGFR-AF [place] 32 mL/min/1.73m2 Critically low >=60 [facility] Comment on above: Performed By: #### R ENAL #### Laboratory [address] [address] [address] Ember Teague EGFR-NON AF [place] 26 mL/min/1.73m2 Critically low >=60 [facility] Comment on above: Performed By: #### R ENAL #### Laboratory [address] [address] [address] Ember Teague Glucose [Mass/Vol] 183 mg/dL Critically high 74-106 [facility] Comment on above: Performed By: #### R ENAL #### Laboratory [address] [address] [address] Ember Teague Phosphate [Mass/Vol] 3.7 mg/dL Normal 2.6-4.7 [facility] Comment on above: Performed By: #### R ENAL #### Laboratory [address] [address] [address] Ember Teague Potassium [Moles/Vol] 4.9 mmol/L Normal 3.5-5.1 [facility] Comment on above: Performed By: #### R ENAL #### Laboratory [address] [address] [address] Ember Teague Sodium [Moles/Vol] 138 mmol/L Normal 136-145 [facility] Comment on above: Performed By: #### R ENAL #### Laboratory [address] [address] [address] Ember Teague Urea nitrogen [Mass/Vol] 40.0 mg/dL Critically high 7.0-18.0 [facility] Comment on above: Performed By: #### R ENAL #### Laboratory [address] [address] [address] Ember Teague CULTURE URINEon 09-15-2022 CULTURE [...] F Trimethoprim/Sulfam ethoxazole <=20 S F Normal [facility] Comment on above: Performed By: #### R ENAL #### Laboratory [address] [place] [address] Dr. Ember Teague BNPon 09-11-2022 Natriuretic peptide B (Bld) [Mass/Vol] 408.0 pg/mL Normal <=1,800.0 [facility] Comment on above: Performed By: #### P THINT #### Laboratory [address] [place] [address] Dr. Ember Teague CBC AUTO DIFFon 09-11-2022 BASO # 0.0 103/ul Normal 0.0-0.1 [facility] Comment on above: Performed By: #### C BC #### Laboratory [address] [place] [address] Dr. Ember Teague Basophils/100 WBC (Bld) 0.3 % Normal 0.2-2.0 [facility] Comment on above: Performed By: #### C BC #### Laboratory [address] [place] [address] Dr. Ember Teague EO # 0.1 103/ul Normal 0.0-0.7 [facility] Comment on above: Performed By: #### C BC #### Laboratory [address] [place] [address] Dr. Ember Teague Eosinophils/100 WBC (Bld) 1.9 % Normal 0.9-7.0 [facility] Comment on above: Performed By: #### C BC #### Laboratory [address] [place] [address] Dr. Ember Teague Erythrocyte distribution width (RBC) [Ratio] 15.2 % Critically high 11.0-15.0 [facility] Comment on above: Performed By: #### C BC #### Laboratory [address] [place] [address] Dr. Ember Teague Hematocrit (Bld) [Volume fraction] 26.6 % Critically low 36.0-48.0 [facility] Comment on above: Performed By: #### C BC #### Laboratory [address] [place] [address] Dr. Ember Teague Hemoglobin (Bld) [Mass/Vol] 9.0 g/dL Critically low 12.0-16.0 [facility] Comment on above: Performed By: #### C BC #### Laboratory [address] [place] [address] Dr. Ember Teague IG # 0.02 10e3/ul Normal 0.00-0.03 [facility] Comment on above: Performed By: #### C BC #### Laboratory [address] [place] [address] Dr. Ember Teague IG % 0.3 % Normal 0.0-0.5 [facility] Comment on above: Performed By: #### C BC #### Laboratory [address] [place] [address] Dr. Ember Teague LYMPH # 1.9 103/ul Normal 1.2-3.8 [facility] Comment on above: Performed By: #### C BC #### Laboratory [address] [place] [address] Dr. Ember Teague Lymphocytes/100 WBC (Bld) 32.4 % Normal 20.5-60.0 [facility] Comment on above: Performed By: #### C BC #### Laboratory [address] [place] [address] Dr. Ember Teague MANUAL DIFF REQ NO Normal [facility] Comment on above: Performed By: #### C BC #### Laboratory [address] [place] [address] Dr. Ember Teague MCH (RBC) [Entitic mass] 31.1 pg Normal 26.7-34.0 [facility] Comment on above: Performed By: #### C BC #### Laboratory [address] [place] [address] Dr. Ember Teague MCHC (RBC) [Mass/Vol] 33.8 g/dL Normal 29.9-35.2 [facility] Comment on above: Performed By: #### C BC #### Laboratory [address] [place] [address] Dr. Ember Teague MCV (RBC) [Entitic vol] 92.0 fL Normal 81.0-99.0 [facility] Comment on above: Performed By: #### C BC #### Laboratory [address] [place] [address] Dr. Ember Teague MONO # 0.6 103/ul Normal 0.3-0.8 [facility] Comment on above: Performed By: #### C BC #### Laboratory [address] [place] [address] Dr. Ember Teague Monocytes/100 WBC (Bld) 10.0 % Normal 1.7-12.0 [facility] Comment on above: Performed By: #### C BC #### Laboratory [address] [place] [address] Dr. Ember Teague NEUT # 3.2 103/ul Normal 1.4-6.5 [facility] Comment on above: Performed By: #### C BC #### Laboratory [address] [place] [address] Dr. Ember Teague Neutrophils/100 WBC (Bld) 55.1 % Normal 43.0-75.0 [facility] Comment on above: Performed By: #### C BC #### Laboratory [address] [place] [address] Dr. Ember Teague Platelet mean volume (Bld) [Entitic vol] 9.4 fL Critically low 9.5-13.5 [facility] Comment on above: Performed By: #### C BC #### Laboratory [address] [place] [address] Dr. Ember Teague PLT 196 103/ul Normal 150-450 [facility] Comment on above: Performed By: #### C BC #### Laboratory [address] [place] [address] Dr. Ember Teague RBC 2.89 106/ul Critically low 4.20-5.40 [facility] Comment on above: Performed By: #### C BC #### Laboratory [address] [place] [address] Dr. Ember Teague WBC 5.8 103/ul Normal 4.0-11.0 [facility] Comment on above: Performed By: #### C BC #### Laboratory [address] [place] [address] Dr. Ember Teague PROF 14(COMP METB)on 022 Albumin [Mass/Vol] 3.7 g/dL Normal 3.4-5.0 [facility] Comment on above: Performed By: #### P THINT #### Laboratory [address] [place] [address] Dr. Ember Teague Albumin/Globulin [Mass ratio] 1.0 {ratio} Normal [facility] Comment on above: Performed By: #### P THINT #### Laboratory [address] [place] [address] Dr. Ember Teague ALP [Catalytic activity/Vol] 79 U/L Normal 46-116 [facility] Comment on above: Performed By: #### P THINT #### Laboratory [address] [place] [address] Dr. Ember Teague ALT [Catalytic activity/Vol] 24 U/L Normal 14-59 [facility] Comment on above: Performed By: #### P THINT #### Laboratory [address] [place] [address] Dr. Ember Teague Anion gap [Moles/Vol] 12.8 mmol/L Normal [facility] Comment on above: Performed By: #### P THINT #### Laboratory [address] [place] [address] Dr. Ember Teague AST [Catalytic activity/Vol] 17 U/L Normal 15-37 [facility] Comment on above: Performed By: #### P THINT #### Laboratory [address] [place] [address] Dr. Ember Teague Bilirubin [Mass/Vol] 0.5 mg/dL Normal 0.2-1.0 [facility] Comment on above: Performed By: #### P THINT #### Laboratory [address] [place] [address] Dr. Ember Teague Calcium [Mass/Vol] 9.4 mg/dL Normal 8.5-10.1 [facility] Comment on above: Performed By: #### P THINT #### Laboratory [address] [address] [address] Ember Teague Chloride [Moles/Vol] 101 mmol/L Normal 98-107 [facility] Comment on above: Performed By: #### P THINT #### Laboratory [address] [place] [address] Dr. Ember Teague CO2 [Moles/Vol] 24.3 mmol/L Normal 21.0-32.0 [facility] Comment on above: Performed By: #### P THINT #### Laboratory [address] [place] [address] Dr. Ember Teague Creatinine [Mass/Vol] 2.84 mg/dL Critically high 0.55-1.02 [facility] Comment on above: Performed By: #### P THINT #### Laboratory [address] [place] [address] Dr. Ember Teague EGFR-AF [place] 20 mL/min/1.73m2 Critically low >=60 [facility] Comment on above: Performed By: #### P THINT #### Laboratory [address] [place] [address] Dr. Ember Teague EGFR-NON AF [place] 16 mL/min/1.73m2 Critically low >=60 [facility] Comment on above: Performed By: #### P THINT #### Laboratory [address] [place] [address] Dr. Ember Teague Globulin (S) [Mass/Vol] 3.7 g/dL Normal [facility] Comment on above: Performed By: #### P THINT #### Laboratory [address] [place] [address] Dr. Ember Teague Glucose [Mass/Vol] 174 mg/dL Critically high 74-106 [facility] Comment on above: Performed By: #### P THINT #### Laboratory [address] [place] [address] Dr. Ember Teague Potassium [Moles/Vol] 5.1 mmol/L Normal 3.5-5.1 [facility] Comment on above: Performed By: #### P THINT #### Laboratory [address] [place] [address] Dr. Ember Teague Protein [Mass/Vol] 7.4 g/dL Normal 6.4-8.2 [facility] Comment on above: Performed By: #### P THINT #### Laboratory [address] [place] [address] Dr. Ember Teague Sodium [Moles/Vol] 133 mmol/L Critically low 136-145 [facility] Comment on above: Performed By: #### P THINT #### Laboratory [address] [place] [address] Dr. Ember Teague Urea nitrogen [Mass/Vol] 68.0 mg/dL Critically high 7.0-18.0 [facility] Comment on above: Performed By: #### P THINT #### Laboratory [address] [place] [address] Dr. Ember Teague Urea nitrogen/Creatinine [Mass ratio] 23.9 mg/mg Normal [facility] Comment on above: Performed By: #### P THINT #### Laboratory [address] [place] [address] Dr. Ember Teague TROPONIN, HIGH SENSITIVITYon 09-11-2022 HSTROP 9.1 pg/mL Normal 4.0-51.3 [facility] Comment on above: Result Comment: CUT- OFF POINTS HAVE BEEN ESTABLISHED BASED ON THE FOURTH UNIVERSAL DEFINITIONS OF MYOCARDIAL INFARCTION. THE UPPER REFERENCE LIMIT (URL) OF TROPONIN, DEFINED THE 99TH PERCENTILE OF cTnI DISTRIBUTION IN A REFERENCE POPULATION, HAS BEEN CONFIRMED THE DECISION THRESHOLD FOR RI DIAGNOSIS. Performed By: #### P THINT #### Laboratory [address] [place] [address] Dr. Ember Teague UA RANDOM W/MICROSCOPICon BACTERIA NONE SEEN Normal NONE SEEN The Comment on above: Performed By: #### C VDTBH #### Laboratory [address] [place] [address] Dr. Ember Teague Bilirubin Ql (U) Negative Normal NEGATIVE [facility] Comment on above: Performed By: #### C VDTBH #### Laboratory [address] [place] [address] Dr. Ember Teague CAST NONE SEEN Normal NONE SEEN The Comment on above: Performed By: #### C VDTBH #### Laboratory [address] [place] [address] Dr. Ember Teague Clarity (U) CLEAR Normal CLEAR The Comment on above: Performed By: #### C VDTBH #### Laboratory [address] [place] [address] Dr. Ember Teague Color (U) LT. YELLOW Normal YELLOW The Comment on above: Performed By: #### C VDTBH #### Laboratory [address] [place] [address] Dr. Ember Teague Crystals LM Nom (Urine sed) NONE SEEN Normal NONE SEEN [facility] Comment on above: Performed By: #### C VDTBH #### Laboratory [address] [place] [address] Dr. Ember Teague Epithelial cells LM Ql (Urine sed) FEW Abnormal NONE SEEN /RARE The Comment on above: Performed By: #### C VDTBH #### Laboratory [address] [place] [address] Dr. Ember Teague Glucose Ql (U) Negative Normal NEGATIVE [facility] Comment on above: Performed By: #### C VDTBH #### Laboratory [address] [place] [address] Dr. Ember Teague Hemoglobin Ql (U) Negative Normal NEGATIVE [facility] Comment on above: Performed By: #### C VDTBH #### Laboratory [address] [place] [address] Dr. Ember Teague Ketones Ql (U) Negative Normal NEGATIVE [facility] Comment on above: Performed By: #### C VDTBH #### Laboratory [address] [place] [address] Dr. Ember Teague LEUKOCYTES Negative Normal NEGATIVE [facility] Comment on above: Performed By: #### C VDTBH #### Laboratory [address] [place] [address] Dr. Ember Teague MUCOUS NONE SEEN Normal NONE SEEN [facility] Comment on above: Performed By: #### C VDTBH #### Laboratory [address] [place] [address] Dr. Ember Teague Nitrite Ql (U) Negative Normal NEGATIVE [facility] Comment on above: Performed By: #### C VDTBH #### Laboratory [address] [place] [address] Dr. Ember Teague pH (U) 5.5 [pH] Normal 5-9 [facility] Comment on above: Performed By: #### C VDTBH #### Laboratory [address] [place] [address] Dr. Ember Teague RBC NONE SEEN Abnormal 0-2 [facility] Comment on above: Performed By: #### C VDTBH #### Laboratory [address] [place] [address] Dr. Ember Teague SPEC GRAVITY 1.010 Normal 1.005-<=1.025 [facility] Comment on above: Performed By: #### C VDTBH #### Laboratory [address] [place] [address] Dr. Ember Teague UA PROTEIN Negative Normal NEGATIVE/ TRACE The Comment on above: Performed By: #### C VDTBH #### Laboratory [address] [place] [address] Dr. Ember Teague Urobilinogen Qn (U) 0.2 {Esau'U}/dL Normal 0.2 - 1. 0 [facility] Comment on above: Performed By: #### C VDTBH #### Laboratory [address] [place] [address] Dr. Ember Teague WBC NONE SEEN Normal NONE SEEN The Comment on above: Performed By: #### C VDTBH #### Laboratory [address] [place] [address] Dr. Ember Teague CBC AUTO DIFFon 08-13-2022 BASO # 0.0 103/ul Normal 0.0-0.1 [facility] Comment on above: Performed By: #### C BC #### Laboratory [address] [place] [address] Dr. Ember Teague Basophils/100 WBC (Bld) 0.3 % Normal 0.2-2.0 [facility] Comment on above: Performed By: #### C BC #### Laboratory [address] [place] [address] Dr. Ember Teague EO # 0.2 103/ul Normal 0.0-0.7 [facility] Comment on above: Performed By: #### C BC #### Laboratory [address] [place] [address] Dr. Ember Teague Eosinophils/100 WBC (Bld) 3.7 % Normal 0.9-7.0 [facility] Comment on above: Performed By: #### C BC #### Laboratory [address] [place] [address] Dr. Ember Teague Erythrocyte distribution width (RBC) [Ratio] 15.0 % Normal 11.0-15.0 [facility] Comment on above: Performed By: #### C BC #### Laboratory [address] [place] [address] Dr. Ember Teague Hematocrit (Bld) [Volume fraction] 27.9 % Critically low 36.0-48.0 [facility] Comment on above: Performed By: #### C BC #### Laboratory [address] [place] [address] Dr. Ember Teague Hemoglobin (Bld) [Mass/Vol] 9.7 g/dL Critically low 12.0-16.0 [facility] Comment on above: Performed By: #### C BC #### Laboratory [address] [place] [address] Dr. Ember Teague IG # 0.01 10e3/ul Normal 0.00-0.03 [facility] Comment on above: Performed By: #### C BC #### Laboratory [address] [place] [address] Dr. Ember Teague IG % 0.2 % Normal 0.0-0.5 [facility] Comment on above: Performed By: #### C BC #### Laboratory [address] [place] [address] Dr. Ember Teague LYMPH # 1.9 103/ul Normal 1.2-3.8 [facility] Comment on above: Performed By: #### C BC #### Laboratory [address] [place] [address] Dr. Ember Teague Lymphocytes/100 WBC (Bld) 32.2 % Normal 20.5-60.0 [facility] Comment on above: Performed By: #### C BC #### Laboratory [address] [place] [address] Dr. Ember Teague MANUAL DIFF REQ NO Normal [facility] Comment on above: Performed By: #### C BC #### Laboratory [address] [place] [address] Dr. Ember Teague MCH (RBC) [Entitic mass] 31.4 pg Normal 26.7-34.0 [facility] Comment on above: Performed By: #### C BC #### Laboratory [address] [place] [address] Dr. Ember Teague MCHC (RBC) [Mass/Vol] 34.8 g/dL Normal 29.9-35.2 [facility] Comment on above: Performed By: #### C BC #### Laboratory [address] [place] [address] Dr. Ember Teague MCV (RBC) [Entitic vol] 90.3 fL Normal 81.0-99.0 [facility] Comment on above: Performed By: #### C BC #### Laboratory [address] [place] [address] Dr. Ember Teague MONO # 0.6 103/ul Normal 0.3-0.8 [facility] Comment on above: Performed By: #### C BC #### Laboratory [address] [place] [address] Dr. Ember Teague Monocytes/100 WBC (Bld) 9.8 % Normal 1.7-12.0 [facility] Comment on above: Performed By: #### C BC #### Laboratory [address] [address] [address] Ember Teague NEUT # 3.2 103/ul Normal 1.4-6.5 [facility] Comment on above: Performed By: #### C BC #### Laboratory [address] [place] [address] Dr. Ember Teague Neutrophils/100 WBC (Bld) 53.8 % Normal 43.0-75.0 [facility] Comment on above: Performed By: #### C BC #### Laboratory [address] [place] [address] Dr. Ember Teague Platelet mean volume (Bld) [Entitic vol] 10.0 fL Normal 9.5-13.5 [facility] Comment on above: Performed By: #### C BC #### Laboratory [address] [place] [address] Dr. Ember Teague PLT 194 103/ul Normal 150-450 [facility] Comment on above: Performed By: #### C BC #### Laboratory [address] [place] [address] Dr. Ember Teague RBC 3.09 106/ul Critically low 4.20-5.40 [facility] Comment on above: Performed By: #### C BC #### Laboratory [address] [place] [address] Dr. Ember Teague WBC 6.0 103/ul Normal 4.0-11.0 [facility] Comment on above: Performed By: #### C BC #### Laboratory [address] [place] [address] Dr. Ember Teague PTH INTACTon 06-26-2022 PTH, Intact 39 pg/mL Normal 15-65 [facility] Comment on above: Performed By: #### P THINT #### Laboratory [address] [place] [address] Dr. Ember Teague CBC AUTO DIFFon 06-25-2022 BASO # 0.1 103/ul Normal 0.0-0.1 [facility] Comment on above: Performed By: #### C VDTBH #### Laboratory [address] [place] [address] Dr. Ember Teague Basophils/100 WBC (Bld) 0.6 % Normal 0.2-2.0 [facility] Comment on above: Performed By: #### C VDTBH #### Laboratory [address] [place] [address] Dr. Ember Teague EO # 0.2 103/ul Normal 0.0-0.7 [facility] Comment on above: Performed By: #### C VDTBH #### Laboratory [address] [place] [address] Dr. Ember Teague Eosinophils/100 WBC (Bld) 3.0 % Normal 0.9-7.0 [facility] Comment on above: Performed By: #### C VDTBH #### Laboratory [address] [place] [address] Dr. Ember Teague Erythrocyte distribution width (RBC) [Ratio] 14.2 % Normal 11.0-15.0 [facility] Comment on above: Performed By: #### C VDTBH #### Laboratory [address] [place] [address] Dr. Ember Teague Hematocrit (Bld) [Volume fraction] 30.9 % Critically low 36.0-48.0 [facility] Comment on above: Performed By: #### C VDTBH #### Laboratory [address] [place] [address] Dr. Ember Teague Hemoglobin (Bld) [Mass/Vol] 10.6 g/dL Critically low 12.0-16.0 [facility] Comment on above: Performed By: #### C VDTBH #### Laboratory [address] [place] [address] Dr. Ember Teague IG # 0.04 10e3/ul Critically high 0.00-0.03 [facility] Comment on above: Performed By: #### C VDTBH #### Laboratory [address] [place] [address] Dr. Ember Teague IG % 0.5 % Normal 0.0-0.5 [facility] Comment on above: Performed By: #### C VDTBH #### Laboratory [address] [place] [address] Dr. Ember Teague LYMPH # 2.2 103/ul Normal 1.2-3.8 [facility] Comment on above: Performed By: #### C VDTBH #### Laboratory [address] [place] [address] Dr. Ember Teague Lymphocytes/100 WBC (Bld) 27.0 % Normal 20.5-60.0 [facility] Comment on above: Performed By: #### C VDTBH #### Laboratory [address] [place] [address] Dr. Ember Teague MANUAL DIFF REQ NO Normal [facility] Comment on above: Performed By: #### C VDTBH #### Laboratory [address] [place] [address] Dr. Ember Teague MCH (RBC) [Entitic mass] 31.2 pg Normal 26.7-34.0 [facility] Comment on above: Performed By: #### C VDTBH #### Laboratory [address] [place] [address] Dr. Ember Teague MCHC (RBC) [Mass/Vol] 34.3 g/dL Normal 29.9-35.2 [facility] Comment on above: Performed By: #### C VDTBH #### Laboratory [address] [place] [address] Dr. Ember Teague MCV (RBC) [Entitic vol] 90.9 fL Normal 81.0-99.0 [facility] Comment on above: Performed By: #### C VDTBH #### Laboratory [address] [place] [address] Dr. Ember Teague MONO # 0.7 103/ul Normal 0.3-0.8 [facility] Comment on above: Performed By: #### C VDTBH #### Laboratory [address] [place] [address] Dr. Ember Teague Monocytes/100 WBC (Bld) 9.2 % Normal 1.7-12.0 [facility] Comment on above: Performed By: #### C VDTBH #### Laboratory [address] [place] [address] Dr. Ember Teague NEUT # 4.8 103/ul Normal 1.4-6.5 [facility] Comment on above: Performed By: #### C VDTBH #### Laboratory [address] [place] [address] Dr. Ember Teague Neutrophils/100 WBC (Bld) 59.7 % Normal 43.0-75.0 [facility] Comment on above: Performed By: #### C VDTBH #### Laboratory [address] [place] [address] Dr. Ember Teague Platelet mean volume (Bld) [Entitic vol] 9.3 fL Critically low 9.5-13.5 [facility] Comment on above: Performed By: #### C VDTBH #### Laboratory [address] [place] [address] Dr. Ember Teague PLT 227 103/ul Normal 150-450 [facility] Comment on above: Performed By: #### C VDTBH #### Laboratory [address] [place] [address] Dr. Ember Teague RBC 3.40 106/ul Critically low 4.20-5.40 [facility] Comment on above: Performed By: #### C VDTBH #### Laboratory [address] [place] [address] Dr. Ember Teague WBC 8.0 103/ul Normal 4.0-11.0 [facility] Comment on above: Performed By: #### C VDTBH #### Laboratory [address] [place] [address] Dr. Ember Teague MRI LSPINE WO CONon [...] YANET HUERTA Date: 2022-06-25 08:45 Normal The RENAL FUNCTION PANELon 06-25 Albumin [Mass/Vol] 3.9 g/dL Normal 3.4-5.0 [facility] [facility] Comment on above: Performed By: #### P THINT #### Laboratory [address] [address] [address] Ember Teague Calcium [Mass/Vol] 9.5 mg/dL Normal 8.5-10.1 [facility] Comment on above: Performed By: #### P THINT #### Laboratory [address] [address] [address] Ember Teague Chloride [Moles/Vol] 102 mmol/L Normal 98-107 [facility] Comment on above: Performed By: #### P THINT #### Laboratory [address] [address] [address] Ember Teague CO2 [Moles/Vol] 23.8 mmol/L Normal 21.0-32.0 [facility] Comment on above: Performed By: #### P THINT #### Laboratory [address] [address] [address] Ember Teague Creatinine [Mass/Vol] 1.75 mg/dL Critically high 0.55-1.02 [facility] Comment on above: Performed By: #### P THINT #### Laboratory [address] [place] [address] Dr. Ember Teague EGFR-AF [place] 34 mL/min/1.73m2 Critically low >=60 [facility] Comment on above: Performed By: #### P THINT #### Laboratory [address] [place] [address] Dr. Ember Teague EGFR-NON AF [place] 28 mL/min/1.73m2 Critically low >=60 [facility] Comment on above: Performed By: #### P THINT #### Laboratory [address] [place] [address] Dr. Ember Teague Glucose [Mass/Vol] 199 mg/dL Critically high 74-106 [facility] Comment on above: Performed By: #### P THINT #### Laboratory [address] [address] [address] Ember Teague Phosphate [Mass/Vol] 4.3 mg/dL Normal 2.6-4.7 [facility] Comment on above: Performed By: #### P THINT #### Laboratory [address] [place] [address] Dr. Ember Teague Potassium [Moles/Vol] 4.9 mmol/L Normal 3.5-5.1 [facility] Comment on above: Performed By: #### P THINT #### Laboratory [address] [address] [address] Ember Teague Sodium [Moles/Vol] 135 mmol/L Critically low 136-145 Th e Comment on above: Performed By: #### P THINT #### Laboratory [address] [place] [address] Dr. Ember Teague Urea nitrogen [Mass/Vol] 34.0 mg/dL Critically high 7.0-18.0 [facility] Comment on above: Performed By: #### P THINT #### Laboratory [address] [place] [address] Dr. Ember Teague VITAMIN D 25 OHon 06-25-2022 VIT D 25-OH 40.6 ng/mL Normal [facility] Comment on above: Performed By: #### P THINT #### Laboratory [address] [place] [address] Dr. Ember Teague VIT D RANGES SEE BELOW Normal [facility] Comment on above: Result Comment: <20 ng/mL Vit D deficient 20 - <30 ng/mL Vit D insufficient 30 - 100 ng/mL Vit D sufficient >100 ng/mL Potential Toxicity Performed By: #### P THINT #### Laboratory [address] [place] [address] Dr. Ember Teague Covid-19 PCR (CVDTB)on 06-07 SARS-CoV-2 (COVID-19) RNA ALEXX+probe Ql (Unsp spec) Not detected Normal NOT DETECTED [facility] Comment on above: Result Comment: This test is not yet approved or cleared by the [place] FDA. When there are no FDA-approved or cleared tests available, and other criteria are met, FDA can make tests available under an emergency access mechanism called an Emergency Use Authorization (EUA). The EUA for this test is supported by the Hydrology Technician of Health and Human Service's (HHS's) declaration [...] Performed By: #### C [facility] #### Laboratory [address] LSPINE WO CONon [...] YANET HUERTA Date: 2022-06-01 18:02 Normal The XR LSPINE MIN 4 VIEWSon 05-07 XR [...] by: YANET HUERTA Date: 2022-05-21 15:25 Normal [facility] PTH INTACTon 05-03-2022 PTH, Intact 60 pg/mL Normal 15-65 [facility] Comment on above: Performed By: #### C [facility] #### Laboratory [address] [address] [address] Ember Teague VIT D 25-OH LABCORPon 2021 Vitamin D, 25-Hydroxy 26.1 ng/mL Critically low 30.0-100.0 [facility] Comment on above: Result Comment: Sara min D deficiency has been defined by the [place] [employer] and an Endocrine Society practice guideline as a level of serum 25-OH vitamin D less than 20 ng/mL (1,2). The Endocrine Society went on to further define vitamin D insufficiency as a level between 21 and 29 ng/mL (2). 1. IOM ([place] [employer]). 2010. Dietary reference intakes for calcium and D. [place]: The National Academies Press. 2. Sherice MF, Wendy [place], Huan ZHONG, et al. Evaluation, treatment, and prevention of vitamin D deficiency: an Endocrine Society clinical practice guideline. JCEM. 2010; 96(7):1911-30. Performed By: #### R ENAL #### Laboratory [address] [address] [address] Ember Teague FERRITINon 05-02-2022 Ferritin [Mass/Vol] 590.0 ng/mL Critically high 8.0-252.0 [facility] Comment on above: Performed By: #### R ENAL #### Laboratory [address] [address] [address] Ember Teague HEMOGRAM AND PLATELon 2021 Hematocrit (Bld) [Volume fraction] 28.4 % Critically low 36.0-48.0 [facility] Comment on above: Performed By: #### C [facility] #### Laboratory [address] [address] [address] Ember Teague Hemoglobin (Bld) [Mass/Vol] 9.6 g/dL Critically low 12.0-16.0 [facility] Comment on above: Performed By: #### C VDT[facility] #### Laboratory [address] [address] [address] Ember Teague MCH (RBC) [Entitic mass] 31.0 pg Normal 26.7-34.0 [facility] Comment on above: Performed By: #### C VDT[facility] #### Laboratory [address] [place] [address] Dr. Ember Teague MCHC (RBC) [Mass/Vol] 33.8 g/dL Normal 29.9-35.2 [facility] Comment on above: Performed By: #### C VDTBH #### Laboratory [address] [address] [address] Ember Teague MCV (RBC) [Entitic vol] 91.6 fL Normal 81.0-99.0 [facility] Comment on above: Performed By: #### C VDTBH #### Laboratory [address] [place] [address] Dr. Ember Teague PLT 189 103/ul Normal 150-450 The Comment on above: Performed By: #### C VDTBH #### Laboratory [address] [address] [address] Ember Teague RBC 3.10 106/ul Critically low 4.20-5.40 [facility] Comment on above: Performed By: #### C VDTBH #### Laboratory [address] [place] [address] Dr. Ember Teague WBC 6.2 103/ul Normal 4.0-11.0 [facility] Comment on above: Performed By: #### C VDTBH #### Laboratory [address] [address] [address] Ember Teague IRON AND TIBCon 05-02-2022 % SATURATION 34.3 % Normal [facility] Comment on above: Performed By: #### R ENAL #### Laboratory [address] [place] [address] Dr. Ember Teague Iron [Mass/Vol] 69.0 ug/dL Normal 50.0-170.0 [facility] Comment on above: Performed By: #### R ENAL #### Laboratory [address] [place] [address] Dr. Ember Teague TIBC DIRECT 201.0 ug/dL Critically low 250.0-450.0 [facility] Comment on above: Performed By: #### R ENAL #### Laboratory [address] [place] [address] Dr. Ember Teague MAGNESIUMon 05-02-2022 Magnesium [Mass/Vol] 1.7 mg/dL Critically low 1.8-2.4 [facility] Comment on above: Performed By: #### C VDTBH #### Laboratory [address] [place] [address] Dr. Ember Teague RENAL FUNCTION PANELon 05-02 Albumin [Mass/Vol] 3.6 g/dL Normal 3.4-5.0 [facility] Comment on above: Performed By: #### C VDTBH #### Laboratory [address] [place] [address] Dr. Ember Teague Calcium [Mass/Vol] 9.2 mg/dL Normal 8.5-10.1 [facility] Comment on above: Performed By: #### C VDTBH #### Laboratory [address] [place] [address] Dr. Ember Teague Chloride [Moles/Vol] 107 mmol/L Normal 98-107 [facility] Comment on above: Performed By: #### C VDTBH #### Laboratory [address] [place] [address] Dr. Ember Teague CO2 [Moles/Vol] 21.2 mmol/L Normal 21.0-32.0 [facility] Comment on above: Performed By: #### C VDTBH #### Laboratory [address] [address] [address] Ember Teague Creatinine [Mass/Vol] 1.75 mg/dL Critically high 0.55-1.02 [facility] Comment on above: Performed By: #### C VDTBH #### Laboratory [address] [address] [address] Ember Teague EGFR-AF [place] 34 mL/min/1.73m2 Critically low >=60 [facility] Comment on above: Performed By: #### C VDTBH #### Laboratory [address] [place] [address] Dr. Ember Teague EGFR-NON AF [place] 28 mL/min/1.73m2 Critically low >=60 [facility] Comment on above: Performed By: #### C VDTBH #### Laboratory [address] [place] [address] Dr. Ember Teague Glucose [Mass/Vol] 193 mg/dL Critically high 74-106 [facility] Comment on above: Performed By: #### C VDTBH #### Laboratory [address] [place] [address] Dr. Ember Teague Phosphate [Mass/Vol] 4.2 mg/dL Normal 2.6-4.7 [facility] Comment on above: Performed By: #### C VDTBH #### Laboratory [address] [place] [address] Dr. Ember Teague Potassium [Moles/Vol] 5.1 mmol/L Normal 3.5-5.1 [facility] Comment on above: Performed By: #### C VDTBH #### Laboratory [address] [place] [address] Dr. Ember Teague Sodium [Moles/Vol] 139 mmol/L Normal 136-145 [facility] Comment on above: Performed By: #### C VDTBH #### Laboratory [address] [place] [address] Dr. Ember Teague Urea nitrogen [Mass/Vol] 34.0 mg/dL Critically high 7.0-18.0 The Comment on above: Performed By: #### C VDTBH #### Laboratory [address] [place] [address] Dr. Ember Teague UA RANDOM W/MICROSCOPICon BACTERIA SMALL Abnormal NONE SEEN The Comment on above: Performed By: #### C VDTBH #### Laboratory [address] [place] [address] Dr. Emebr Teague Bilirubin Ql (U) Negative Normal NEGATIVE [facility] Comment on above: Performed By: #### C VDTBH #### Laboratory [address] [place] [address] Dr. Ember Teague CAST NONE SEEN Normal NONE SEEN [facility] Comment on above: Performed By: #### C VDTBH #### Laboratory [address] [place] [address] Dr. Ember Teague Clarity (U) CLEAR Normal CLEAR The Comment on above: Performed By: #### C VDTBH #### Laboratory [address] [place] [address] Dr. Ember Teague Color (U) LT. YELLOW Normal YELLOW The Comment on above: Performed By: #### C VDTBH #### Laboratory [address] [place] [address] Dr. Ember Teague Crystals LM Nom (Urine sed) NONE SEEN Normal NONE SEEN The Comment on above: Performed By: #### C VDTBH #### Laboratory [address] [place] [address] Dr. Ember Teague Epithelial cells LM Ql (Urine sed) MODERATE Abnormal NONE SEEN /RARE The Comment on above: Performed By: #### C VDTBH #### Laboratory [address] [place] [address] Dr. Ember Teague Glucose Ql (U) Negative Normal NEGATIVE [facility] Comment on above: Performed By: #### C VDTBH #### Laboratory [address] [place] [address] Dr. Ember Teague Hemoglobin Ql (U) Negative Normal NEGATIVE [facility] Comment on above: Performed By: #### C VDTBH #### Laboratory [address] [place] [address] Dr. Ember Teague Ketones Ql (U) Negative Normal NEGATIVE [facility] Comment on above: Performed By: #### C VDTBH #### Laboratory [address] [place] [address] Dr. Ember Teague LEUKOCYTES TRACE Abnormal NEGATIVE [facility] Comment on above: Performed By: #### C VDTBH #### Laboratory [address] [place] [address] Dr. Ember Teague MUCOUS NONE SEEN Normal NONE SEEN [facility] Comment on above: Performed By: #### C VDTBH #### Laboratory [address] [place] [address] Dr. Ember Teague Nitrite Ql (U) Negative Normal NEGATIVE [facility] Comment on above: Performed By: #### C VDTBH #### Laboratory [address] [place] [address] Dr. Ember Teague pH (U) 5.0 [pH] Normal 5-9 [facility] Comment on above: Performed By: #### C VDTBH #### Laboratory [address] [place] [address] Dr. Ember Teague RBC NONE SEEN Abnormal 0-2 The Comment on above: Performed By: #### C VDTBH #### Laboratory [address] [place] [address] Dr. Ember Teague SPEC GRAVITY 1.015 Normal 1.005-<=1.025 [facility] Comment on above: Performed By: #### C VDTBH #### Laboratory [address] [place] [address] Dr. Ember Teague UA PROTEIN TRACE Normal NEGATIVE/ TRACE The Comment on above: Performed By: #### C VDTBH #### Laboratory [address] [place] [address] Dr. Ember Teague Urobilinogen Qn (U) 0.2 {Esau'U}/dL Normal 0.2 - 1. 0 [facility] Comment on above: Performed By: #### C VDTBH #### Laboratory [address] [address] [address] Ember Teague WBC 0-2 Abnormal NONE SEEN The Comment on above: Performed By: #### C VDTBH #### Laboratory [address] [place] [address] Dr. Ember Teague URIC ACID SERUMon 05-02-2022 Urate [Mass/Vol] 4.4 mg/dL Normal 2.6-6.0 [facility] Comment on above: Performed By: #### C #### Laboratory [address] [place] [address] Dr. Ember Teague URINE T PROTEIN CREAT RATIOo n 05-02-2022 Protein (U) [Mass/Vol] 33.7 mg/dL Critically high <=12.0 [facility] Comment on above: Performed By: #### C VDTBH #### Laboratory [address] [address] [address] Ember Teague UR PROT CREAT RAT 0.69 Normal [facility] Comment on above: Performed By: #### C VDTBH #### Laboratory [address] [place] [address] Dr. Ember Teague URINE CREAT 48.93 mg/dL Normal 20.00-300.00 [facility] Comment on above: Performed By: #### C VDTBH #### Laboratory [address] [place] [address] Dr. Ember Teague Vital Signs Date Time Vital Sign Value Performing Clinician Facility 02-15-2025 09:51-0400 Body height 168.9 cm Lorraine Mayer MD Work Phone: [facility] 02-15-2025 09:51-0400 Body mass index (BMI) [Ratio] 31 kg/m2 Lorraine Mayer MD Work Phone: [facility] 02-15-2025 09:51-0400 Body weight 88.45 kg Lorraine Mayer MD Work Phone: [facility] 02-15-2025 09:51-0400 Diastolic blood pressure 62 mm[Hg] Lorraine Mayer MD Work Phone: [facility] 02-15-2025 09:51-0400 Heart rate 63 /min Lorraine Mayer MD Work Phone: [facility] 02-15-2025 09:51-0400 Respiratory rate 16 /min Lorraine Mayer MD Work Phone: [facility] 02-15-2025 09:51-0400 SaO2% (BldA) [Mass fraction] 97 % Lorraine Mayer MD Work Phone: [facility] 02-15-2025 09:51-0400 Systolic blood pressure 132 mm[Hg] Lorraine Mayer MD Work Phone: [facility] 01-14-2025 09:15-0400 Body height 168.91 cm [facility] 01-14-2025 09:15-0400 Body mass index (BMI) [Ratio] 30.8 kg/m2 [facility] 01-14-2025 09:15-0400 Body temperature 98.2 [degF] [facility] 01-14-2025 09:15-0400 Body weight 88.05 kg [facility] 01-14-2025 09:15-0400 Diastolic blood pressure 58 mm[Hg] [facility] 01-14-2025 09:15-0400 Heart rate 65 /min [facility] 01-14-2025 09:15-0400 Respiratory rate 16 /min [facility] 01-14-2025 09:15-0400 SaO2% (BldA) [Mass fraction] 98 % [facility] 01-14-2025 09:15-0400 Systolic blood pressure 128 mm[Hg] [facility] 11-16-2024 09:49-0500 Body height 168.9 cm Lorraine Mayer MD Work Phone: [facility] 11-16-2024 09:49-0500 Body mass index (BMI) [Ratio] 30.53 kg/m2 Lorraine Mayer MD Work Phone: [facility] 11-16-2024 09:49-0500 Body weight 87.09 kg Lorraine Mayer MD Work Phone: [facility] 11-16-2024 09:49-0500 Diastolic blood pressure 80 mm[Hg] Lorraine Mayer MD Work Phone: [facility] 11-16-2024 09:49-0500 Heart rate 62 /min Lorraine Mayer MD Work Phone: [facility] 11-16-2024 09:49-0500 Respiratory rate 16 /min Lorraine Mayer MD Work Phone: [facility] 11-16-2024 09:49-0500 SaO2% (BldA) [Mass fraction] 97 % Lorraine Mayer MD Work Phone: [facility] 11-16-2024 09:49-0500 Systolic blood pressure 130 mm[Hg] Lorraine Mayer MD Work Phone: [facility] 01-17-2024 12:56-0400 Body height 168.9 cm Thuan Lucas MD Work Phone: [facility] 01-17-2024 12:56-0400 Body mass index (BMI) [Ratio] 30.05 kg/m2 Thuan Lucas MD Work Phone: [facility] 01-17-2024 12:56-0400 Body weight 85.73 kg Thuan Lucas MD Work Phone: [facility] 01-17-2024 12:56-0400 Diastolic blood pressure 70 mm[Hg] Thuan Lucas MD Work Phone: [facility] 01-17-2024 12:56-0400 Heart rate 60 /min Thuan Lucas MD Work Phone: [facility] 01-17-2024 12:56-0400 SaO2% (BldA) [Mass fraction] 98 % Thuan Lucas MD Work Phone: [facility] 01-17-2024 12:56-0400 Systolic blood pressure 180 mm[Hg] Thuan Lucas MD Work Phone: [facility] 11-18-2023 10:00-0500 Body height 168.91 cm Ron Doreen Other [employer] Other 11-18-2023 10:00-0500 Body mass index (BMI) [Ratio] 29.85 kg/m2 Ron Doreen Other [employer] Other 11-18-2023 10:00-0500 Body temperature 97.3 [degF] Ron Doreen Other [employer] Other 11-18-2023 10:00-0500 Body weight 85.19 kg Ron Doreen Other [employer] Other 11-18-2023 10:00-0500 Diastolic blood pressure 79 mm[Hg] Ron Doreen Other [employer] Other 11-18-2023 10:00-0500 Respiratory rate 18 /min Ron Doreen Other [employer] Other 11-18-2023 10:00-0500 SaO2% (BldA) [Mass fraction] 98 % Ron Doreen Other [employer] Other 11-18-2023 10:00-0500 Systolic blood pressure 149 mm[Hg] Ron Doreen Other [employer] Other 11-04-2023 11:00-0500 Body height 168.91 cm Ron Doreen Other [employer] Other 11-04-2023 11:00-0500 Body mass index (BMI) [Ratio] 30.17 kg/m2 Ron Doreen Other [employer] Other 11-04-2023 11:00-0500 Body temperature 97.6 [degF] Ron Doreen Other [employer] Other 11-04-2023 11:00-0500 Body weight 86.09 kg Ron Doreen Other [employer] Other 11-04-2023 11:00-0500 Diastolic blood pressure 76 mm[Hg] Ron Doreen Other [employer] Other 11-04-2023 11:00-0500 Respiratory rate 18 /min Ron Doreen Other [employer] Other 11-04-2023 11:00-0500 SaO2% (BldA) [Mass fraction] 98 % Ron Doreen Other [employer] Other 11-04-2023 11:00-0500 Systolic blood pressure 153 mm[Hg] Ron Doreen Other [employer] Other 10-15-2023 13:00-0500 Body height 168.91 cm Ron Doreen Other [employer] Other 10-15-2023 13:00-0500 Body mass index (BMI) [Ratio] 29.82 kg/m2 Ron Doreen Other [employer] Other 10-15-2023 13:00-0500 Body temperature 97.5 [degF] Ron Doreen Other [employer] Other 10-15-2023 13:00-0500 Body weight 85.1 kg Ron Doreen Other [employer] Other 10-15-2023 13:00-0500 Diastolic blood pressure 68 mm[Hg] Ron Doreen Other [employer] Other 10-15-2023 13:00-0500 Respiratory rate 18 /min Ron Doreen Other [employer] Other 10-15-2023 13:00-0500 SaO2% (BldA) [Mass fraction] 98 % Ron Doreen Other [employer] Other 10-15-2023 13:00-0500 Systolic blood pressure 113 mm[Hg] Ron Doreen Other [employer] Other 08-27-2023 09:40-0500 Body height 168.91 cm Mary Anne [employer] Other [employer] Other 08-27-2023 09:40-0500 Body mass index (BMI) [Ratio] 30.2 kg/m2 Mary Anne [employer] Other [employer] Other 08-27-2023 09:40-0500 Body temperature 96.7 [degF] Mary Anne [employer] Other [employer] Other 08-27-2023 09:40-0500 Body weight 86.18 kg Mary Anne Ackerman Other [employer] Other 08-27-2023 09:40-0500 Diastolic blood pressure 72 mm[Hg] Mary Anne [employer] Other [employer] Other 08-27-2023 09:40-0500 Respiratory rate 18 /min Mary Anne Ackerman Other [employer] Other 08-27-2023 09:40-0500 SaO2% (BldA) [Mass fraction] 98 % Mary Anne Ackerman Other [employer] Other 08-27-2023 09:40-0500 Systolic blood pressure 153 mm[Hg] Mary Anne Ackerman Other [employer] Other 08-15-2023 10:20-0500 Body height 168.91 cm Ron Doreen Other [employer] Other 08-15-2023 10:20-0500 Body mass index (BMI) [Ratio] 30.2 kg/m2 Ron Doreen Other [employer] Other 08-15-2023 10:20-0500 Body temperature 97.1 [degF] Ron Doreen Other [employer] Other 08-15-2023 10:20-0500 Body weight 86.18 kg Ron Doreen Other [employer] Other 08-15-2023 10:20-0500 Diastolic blood pressure 79 mm[Hg] Ron Doreen Other [employer] Other 08-15-2023 10:20-0500 Respiratory rate 18 /min Ron Doreen Other [employer] Other 08-15-2023 10:20-0500 SaO2% (BldA) [Mass fraction] 98 % Ron Doreen Other [employer] Other 08-15-2023 10:20-0500 Systolic blood pressure 164 mm[Hg] Ron Doreen Other [employer] Other 08-13-2023 15:40-0500 Body height 168.91 cm Ron Doreen Other [employer] Other 08-13-2023 15:40-0500 Body mass index (BMI) [Ratio] 30.24 kg/m2 Ron Doreen Other [employer] Other 08-13-2023 15:40-0500 Body temperature 97.2 [degF] Ron Doreen Other [employer] Other 08-13-2023 15:40-0500 Body weight 86.27 kg Ron Doreen Other [employer] Other 08-13-2023 15:40-0500 Diastolic blood pressure 79 mm[Hg] Ron Doreen Other [employer] Other 08-13-2023 15:40-0500 Respiratory rate 18 /min Ron Doreen Other [employer] Other 08-13-2023 15:40-0500 SaO2% (BldA) [Mass fraction] 98 % Ron Doreen Other [employer] Other 08-13-2023 15:40-0500 Systolic blood pressure 186 mm[Hg] Ron Doreen Other [employer] Other 08-01-2023 13:00-0400 Body height 168.91 cm Ron Doreen Other [employer] Other 08-01-2023 13:00-0400 Body mass index (BMI) [Ratio] 30.55 kg/m2 Ron Doreen Other [employer] Other 08-01-2023 13:00-0400 Body temperature 97.8 [degF] Ron Doreen Other [employer] Other 08-01-2023 13:00-0400 Body weight 87.18 kg Ron Doreen Other [employer] Other 08-01-2023 13:00-0400 Diastolic blood pressure 72 mm[Hg] Ron Doreen Other [employer] Other 08-01-2023 13:00-0400 Respiratory rate 18 /min Ron Doreen Other [employer] Other 08-01-2023 13:00-0400 SaO2% (BldA) [Mass fraction] 98 % Ron Doreen Other [employer] Other 08-01-2023 13:00-0400 Systolic blood pressure 160 mm[Hg] Ron Doreen Other [employer] Other 06-24-2023 11:40-0400 Body height 168.91 cm Ron Doreen Other [employer] Other 06-24-2023 11:40-0400 Body mass index (BMI) [Ratio] 29.89 kg/m2 Ron Doreen Other [employer] Other 06-24-2023 11:40-0400 Body temperature 97.3 [degF] Ron Doreen Other [employer] Other 06-24-2023 11:40-0400 Body weight 85.28 kg Ron Doreen Other [employer] Other 06-24-2023 11:40-0400 Diastolic blood pressure 75 mm[Hg] Ron Doreen Other [employer] Other 06-24-2023 11:40-0400 Respiratory rate 18 /min Ron Doreen Other [employer] Other 06-24-2023 11:40-0400 SaO2% (BldA) [Mass fraction] 99 % Ron Doreen Other [employer] Other 06-24-2023 11:40-0400 Systolic blood pressure 129 mm[Hg] Ron Doreen Other [employer] Other 06-06-2023 15:20-0400 Body height 168.91 cm Ron Doreen Other [employer] Other 06-06-2023 15:20-0400 Body mass index (BMI) [Ratio] 29.92 kg/m2 Ron Doreen Other [employer] Other 06-06-2023 15:20-0400 Body temperature 96.5 [degF] Ron Doreen Other [employer] Other 06-06-2023 15:20-0400 Body weight 85.37 kg Ron Doreen Other [employer] Other 06-06-2023 15:20-0400 Diastolic blood pressure 49 mm[Hg] Ron Doreen Other [employer] Other 06-06-2023 15:20-0400 Respiratory rate 18 /min Ron Doreen Other [employer] Other 06-06-2023 15:20-0400 SaO2% (BldA) [Mass fraction] 99 % Ron Doreen Other [employer] Other 06-06-2023 15:20-0400 Systolic blood pressure 128 mm[Hg] Ron Doreen Other [employer] Other 04-30-2023 11:40-0400 Body height 168.91 cm Ron Doreen Other [employer] Other 04-30-2023 11:40-0400 Body mass index (BMI) [Ratio] 30.52 kg/m2 Ron Doreen Other [employer] Other 04-30-2023 11:40-0400 Body temperature 96.9 [degF] Ron Doreen Other [employer] Other 04-30-2023 11:40-0400 Body weight 87.09 kg Ron Doreen Other [employer] Other 04-30-2023 11:40-0400 Diastolic blood pressure 80 mm[Hg] Ron Doreen Other [employer] Other 04-30-2023 11:40-0400 Respiratory rate 18 /min Ron Doreen Other [employer] Other 04-30-2023 11:40-0400 SaO2% (BldA) [Mass fraction] 98 % Ron Doreen Other [employer] Other 04-30-2023 11:40-0400 Systolic blood pressure 150 mm[Hg] Ron Doreen Other [employer] Other 04-06-2023 09:00-0400 Body height 168.91 cm Ron Doreen Other [employer] Other 04-06-2023 09:00-0400 Body mass index (BMI) [Ratio] 30.36 kg/m2 Ron Doreen Other [employer] Other 04-06-2023 09:00-0400 Body weight 86.64 kg Ron Doreen Other [employer] Other 04-06-2023 09:00-0400 Diastolic blood pressure 54 mm[Hg] Ron Doreen Other [employer] Other 04-06-2023 09:00-0400 Respiratory rate 18 /min Ron Doreen Other [employer] Other 04-06-2023 09:00-0400 SaO2% (BldA) [Mass fraction] 98 % Ron Doreen Other [employer] Other 04-06-2023 09:00-0400 Systolic blood pressure 144 mm[Hg] Ron Doreen Other [employer] Other 04-02-2023 14:40-0400 Body height 168.91 cm Ron Doreen [employer] Other 04-02-2023 14:40-0400 Body mass index (BMI) [Ratio] 30.55 kg/m2 Ron Doreen Other [employer] Other 04-02-2023 14:40-0400 Body temperature 97 [degF] Ron Doreen Other [employer] Other 04-02-2023 14:40-0400 Body weight 87.18 kg Ron Doreen Other [employer] Other 04-02-2023 14:40-0400 Diastolic blood pressure 76 mm[Hg] Ron Doreen Other [employer] Other 04-02-2023 14:40-0400 Respiratory rate 18 /min Ron Doreen Other [employer] Other 04-02-2023 14:40-0400 SaO2% (BldA) [Mass fraction] 98 % Ron Doreen Other [employer] Other 04-02-2023 14:40-0400 Systolic blood pressure 183 mm[Hg] Ron Doreen Other [employer] Other 03-07-2023 09:20-0400 Body height 168.91 cm Ron Doreen Other [employer] Other 03-07-2023 09:20-0400 Body mass index (BMI) [Ratio] 30.52 kg/m2 Ron Doreen Other [employer] Other 03-07-2023 09:20-0400 Body temperature 97.1 [degF] Ron Doreen Other [employer] Other 03-07-2023 09:20-0400 Body weight 87.09 kg Ron Doreen Other [employer] Other 03-07-2023 09:20-0400 Diastolic blood pressure 72 mm[Hg] Ron Doreen Other [employer] Other 03-07-2023 09:20-0400 Respiratory rate 18 /min Ron Doreen Other [employer] Other 03-07-2023 09:20-0400 SaO2% (BldA) [Mass fraction] 97 % Ron Doreen Other [employer] Other 03-07-2023 09:20-0400 Systolic blood pressure 130 mm[Hg] Ron Doreen Other [employer] Other 12-20-2022 13:20-0400 Body height 168.91 cm Ron Doreen Other [employer] Other 12-20-2022 13:20-0400 Body mass index (BMI) [Ratio] 30.68 kg/m2 Ron Doreen Other [employer] Other 12-20-2022 13:20-0400 Body temperature 97.1 [degF] Rno Doreen Other [employer] Other 12-20-2022 13:20-0400 Body weight 87.54 kg Ron Doreen Other [employer] Other 12-20-2022 13:20-0400 Diastolic blood pressure 72 mm[Hg] Ron Doreen Other [employer] Other 12-20-2022 13:20-0400 Respiratory rate 18 /min Ron Doreen Other [employer] Other 12-20-2022 13:20-0400 SaO2% (BldA) [Mass fraction] 99 % Ron Doreen Other [employer] Other 12-20-2022 13:20-0400 Systolic blood pressure 139 mm[Hg] Ron Doreen Other [employer] Other 11-05-2022 14:00-0500 Body height 168.91 cm Ron Doreen Other [employer] Other 11-05-2022 14:00-0500 Body mass index (BMI) [Ratio] 30.59 kg/m2 Ron Doreen Other [employer] Other 11-05-2022 14:00-0500 Body temperature 96.8 [degF] Ron Doreen Other [employer] Other 11-05-2022 14:00-0500 Body weight 87.27 kg Ron Doreen Other [employer] Other 11-05-2022 14:00-0500 Diastolic blood pressure 72 mm[Hg] Ron Doreen Other [employer] Other 11-05-2022 14:00-0500 Respiratory rate 18 /min Ron Doreen Other [employer] Other 11-05-2022 14:00-0500 SaO2% (BldA) [Mass fraction] 98 % Ron Doreen Other [employer] Other 11-05-2022 14:00-0500 Systolic blood pressure 157 mm[Hg] Ron Doreen Other [employer] Other 09-27-2022 16:00-0500 Body height 168.91 cm Jana Monson Other [employer] Other 09-27-2022 16:00-0500 Body mass index (BMI) [Ratio] 30.55 kg/m2 Jana Monson Other [employer] Other 09-27-2022 16:00-0500 Body temperature 96.8 [degF] Jana Monson Other [employer] Other 09-27-2022 16:00-0500 Body weight 87.18 kg Jana Monson Other [employer] Other 09-27-2022 16:00-0500 Diastolic blood pressure 73 mm[Hg] Jana Monson Other [employer] Other 09-27-2022 16:00-0500 Respiratory rate 18 /min Jana Monson Other [employer] Other 09-27-2022 16:00-0500 SaO2% (BldA) [Mass fraction] 98 % Jana Monson Other [employer] Other 09-27-2022 16:00-0500 Systolic blood pressure 159 mm[Hg] Jana Monson Other [employer] Other 08-22-2022 12:00-0500 Body height 168.91 cm Ron Doreen Other [employer] Other 08-22-2022 12:00-0500 Body mass index (BMI) [Ratio] 30.65 kg/m2 Ron Doreen Other [employer] Other 08-22-2022 12:00-0500 Body temperature 96.9 [degF] Ron Doeren Other [employer] Other 08-22-2022 12:00-0500 Body weight 87.45 kg Ron Doreen Other [employer] Other 08-22-2022 12:00-0500 Diastolic blood pressure 75 mm[Hg] Ron Doreen Other [employer] Other 08-22-2022 12:00-0500 Respiratory rate 18 /min Ron Doreen Other [employer] Other 08-22-2022 12:00-0500 SaO2% (BldA) [Mass fraction] 96 % Ron Doreen Other [employer] Other 08-22-2022 12:00-0500 Systolic blood pressure 121 mm[Hg] Ron Doreen Other [employer] Other 05-08-2022 10:20-0400 Body height 168.91 cm Ron Doreen Other [employer] Other 05-08-2022 10:20-0400 Body mass index (BMI) [Ratio] 31.54 kg/m2 Ron Doreen Other [employer] Other 05-08-2022 10:20-0400 Body temperature 97.6 [degF] Ron Doreen Other [employer] Other 05-08-2022 10:20-0400 Body weight 89.99 kg Ron Doreen Other [employer] Other 05-08-2022 10:20-0400 Diastolic blood pressure 68 mm[Hg] Ron Doreen Other [employer] Other 05-08-2022 10:20-0400 Respiratory rate 18 /min Ron Doreen Other [employer] Other 05-08-2022 10:20-0400 SaO2% (BldA) [Mass fraction] 98 % Ron Doreen Other [employer] Other 05-08-2022 10:20-0400 Systolic blood pressure 131 mm[Hg] Ron Doreen Other [employer] Other 04-14-2022 10:20-0400 Body height 168.91 cm Ron Doreen Other [employer] Other 01-18-2022 10:20-0400 Body mass index (BMI) [Ratio] 31 kg/m2 Ron Doreen Other [employer] Other 01-18-2022 10:20-0400 Body temperature 96.4 [degF] Ron Doreen Other [employer] Other 01-18-2022 10:20-0400 Body weight 88.45 kg Ron Doreen Other [employer] Other 01-18-2022 10:20-0400 Diastolic blood pressure 74 mm[Hg] Ron Doreen Other [employer] Other 01-18-2022 10:20-0400 Respiratory rate 18 /min Ron Doreen Other [employer] Other 01-18-2022 10:20-0400 SaO2% (BldA) [Mass fraction] 97 % Ron Doreen Other [employer] Other 01-18-2022 10:20-0400 Systolic blood pressure 170 mm[Hg] Ron Doreen Other [employer] Other Encounters Encounter Date Encounter Type Care Provider Facility Start: 04-21-2025 End: 04-21-2025 ambulatory Dhruv Rubi MD Work Phone: [facility] Work Phone: Start: 04-21-2025 End: 04-21-2025 Departed Referred Dmitriy Lynne MD -LAB [facility] Start: 03-23-2025 End: 03-23-2025 Office outpatient visit 15 minutes Greg Tineo MD Work Phone: [facility] Comment on above: Seborrheic keratosis (Primary Dx); Seborrheic keratosis, inflamed; Solar purpura; Lentigines Start: 03-23-2025 End: 03-23-2025 ambulatory GREG TINEO Not Available Start: 03-23-2025 End: 03-23-2025 Bamboo flowsviry Tineo MD Work Phone: [facility] Start: 03-23-2025 End: 03-23-2025 Bamklaus Tineo MD Work Phone: [facility] Start: 03-07-2025 End: 03-12-2025 Refill Marie Garcia APRN-JANITORIAL ACCOUNT MANAGER Work Phone: [facility] Comment on above: Med Refill Start: 02-25-2025 End: 02-25-2025 ambulatory EHAB [facility] Start: 02-15-2025 End: 02-15-2025 Bamboo flowsviry Mayer MD Work Phone: [facility] Start: 02-15-2025 End: 02-15-2025 Bamboo flowsviry Mayer MD Work Phone: [facility] Start: 02-15-2025 End: 02-15-2025 Office outpatient visit 25 minutes Lorraine Mayer MD Work Phone: [facility] Comment on above: Type 2 diabetes diony itus with hyperglycemia, with long-term 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 (CMS/HCC) (Primary Dx); Vitamin D deficiency; Microalbuminuria; Hyperlipemia, mixed (CMS/HCC); Primary hypertension (CMS/HCC); Insulin long-term use (CMS/HCC); 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CMS/HCC); Encounter for dietary consultation; Chronic renal disease, stage IV (CMS/HCC) Start: 02-15-2025 End: 02-15-2025 ambulatory LORRAINE MAYER Not Available Start: 01-14-2025 End: 01-14-2025 ambulatory [facility] Work Phone: Start: 01-14-2025 End: 01-14-2025 Patient encounter procedure [facility] Eliel Work Phone: Start: 01-05-2025 Non-patient / Non-visit [facility] Work Phone: Start: 12-21-2024 End: 12-21-2024 Telephone encounter Cary Goldman CMA [facility] Start: 12-12-2024 End: 2024 Refill Cristina Salamanca CHARGE MASTER ANALYST-JANITORIAL ACCOUNT MANAGER Work Phone: [facility] Comment on above: Med Refill Start: 11-27-2024 End: 11-27-2024 ambulatory ALEJANDRO [facility] Start: 11-16-2024 End: 11-16-2024 Bamboo flowsheet Lorraine Mayer MD Work Phone: [facility] Start: 11-16-2024 End: 11-16-2024 Parmjit flowsviry Mayer MD Work Phone: [facility] Start: 11-16-2024 End: 11-16-2024 Office outpatient visit 25 minutes Lorraine Mayer MD Work Phone: [facility] Comment on above: Type 2 diabetes [...] flowsheet Ga Josh Ming DPM Work Phone: [facility] Start: 09-28-2024 End: 09-28-2024 Bamboo flowsheet Ga Josh Ming DPM Work Phone: [facility] Start: 09-28-2024 End: 09-28-2024 Patient encounter procedure Ga Lai DPM Work Phone: [facility] Comment on above: Onychomycosis (Prima ry Dx); Pain in both feet; Corns and callosities; Type 2 diabetes mellitus without complication, with long-term 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 (CMS/HCC) Start: 09-28-2024 End: 09-28-2024 ambulatory GA LAI Not Available Start: 09-05-2024 End: 09-11-2024 Refill Marie Garcia APRN-JANITORIAL ACCOUNT MANAGER Work Phone: [facility] Comment on above: Med Refill Start: 07-13-2024 End: 07-13-2024 Bamboo flowsheet Lorraine Mayer MD Work Phone: [facility] Start: 07-13-2024 End: 07-13-2024 Bamboo flowsheet Lorraine Mayer MD Work Phone: [facility] Start: 07-13-2024 End: 07-13-2024 Office outpatient visit 25 minutes Lorraine Mayer MD Work Phone: [facility] Comment on above: Type 2 diabetes [...] Bamboo flowsheet Ga Lai DPM Work Phone: [facility] Start: 06-25-2024 End: 06-25-2024 Bamboo flowsheet Ga Lai DPM Work Phone: [facility] Start: 06-25-2024 End: 06-25-2024 Patient encounter procedure Ga Lai DPM Work Phone: [facility] Comment on above: Onychomycosis (Prima ry Dx); Pain in both feet; Corns and callosities; Type 2 diabetes mellitus without complication, with long-term 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 ([facility]) Start: 06-25-2024 End: 06-25-2024 ambulatory GA LAI Not Available Start: 06-04-2024 End: 06-04-2024 Bamboo flowsviry Tineo MD Work Phone: [facility] Start: 06-04-2024 End: 06-04-2024 Bamboo cornelio Tineo MD Work Phone: [facility] Start: 06-04-2024 End: 06-04-2024 Office outpatient visit 15 minutes Greg Tineo MD Work Phone: [facility] Comment on above: Granuloma annulare ( Primary Dx) Start: 06-04-2024 End: 06-04-2024 ambulatory GREG TINEO Not Available Start: 05-25-2024 End: 05-25-2024 Patient encounter procedure Greg Tineo MD Work Phone: [facility] Comment on above: Rash and other nonsp ecific skin eruption (Primary Dx) Start: 05-25-2024 End: 05-25-2024 ambulatory GREG A TOBIASITTI Not Available Start: 05-11-2024 End: 05-11-2024 ambulatory [facility] Start: 04-21-2024 End: 04-21-2024 ambulatory GREG TINEO Not Available Start: 04-16-2024 End: 04-16-2024 ambulatory GA LAI Not Available Start: 03-18-2024 End: 03-23-2024 Refill Marie Garcia CHARGE MASTER ANALYST-JANITORIAL ACCOUNT MANAGER Work Phone: [facility] Comment on above: Med Refill Start: 01-17-2024 End: 01-17-2024 ambulatory THUAN LUCAS [facility] Start: 01-17-2024 End: 01-17-2024 Office outpatient visit 15 minutes Sarthak Rueda MD Work Phone: [facility] Comment on above: Paroxysmal atrial fi brillation ([facility]) (Primary Dx); Stage 4 chronic kidney disease ([facility]); 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 ([facility]); Other forms of angina pectoris ([facility]); Essential hypertension; Atherosclerosis of [place] coronary artery of [place] heart without angina pectoris; H/O four vessel coronary artery bypass graft; Hypertensive urgency; Shortness of breath; Localized edema Start: 01-16-2024 End: 01-16-2024 Telephone encounter Cary Goldman CMA [facility] Start: 12-21-2023 Refill Luis dominique PA-C Work Phone: [facility] Comment on above: Med Refill Start: 11-18-2023 End: 11-18-2023 ambulatory Ron Doreen Other [employer] Other Start: 11-18-2023 Office outpatient vi sit 15 minutes Ron Doreen [facility] Start: 11-04-2023 (INJECTION) INJECTION Ron Doreen [facility] Start: 11-04-2023 End: 11-04-2023 ambulatory Ron Doreen Other [employer] Other Start: 10-15-2023 End: 10-15-2023 ambulatory Ron Doreen Other [employer] Other Start: 10-15-2023 Office outpatient vi sit 15 minutes Ron Doreen [facility] Start: 10-08-2023 End: 10-08-2023 ambulatory Aziz Bakhous Other [employer] Other Start: 10-08-2023 Telephone encounter Aziz Bakhous [facility] Start: 09-15-2023 End: 09-15-2023 ambulatory Ron Doreen Other [employer] Other Start: 09-15-2023 Telephone encounter Ron Doreen [facility] Start: 09-09-2023 End: 09-09-2023 ambulatory Ron Doreen Other [employer] Other Start: 09-09-2023 Telephone encounter Ron Doreen [facility] Start: 08-27-2023 (INJECTION) INJECTION Aziz Bakhous [facility] Start: 08-27-2023 End: 08-27-2023 ambulatory Aziz Bakhous Other [employer] Other Start: 08-15-2023 (INJECTION) INJECTION Ron Dore[facility] Start: 08-15-2023 End: 08-15-2023 ambulatory Ron Doreen Other [employer] Other Start: 08-13-2023 (INJECTION) INJECTION Ron D[facility] Start: 08-13-2023 End: 08-13-2023 ambulatory Ron Doreen Other [employer] Other Start: 08-01-2023 End: 08-01-2023 ambulatory Ron Doreen Other [employer] Other Start: 08-01-2023 Office outpatient vi sit 15 minutes Ron Doreen [facility] Start: 06-24-2023 End: 06-24-2023 ambulatory Ron Doreen Other [employer] Other Start: 06-24-2023 Office outpatient vi sit 10 minutes Ron Doreen [facility] Start: 06-06-2023 End: 06-06-2023 ambulatory Ron Doreen Other [employer] Other Start: 06-06-2023 Office outpatient vi sit 15 minutes Ron Doreen [facility] Start: 04-30-2023 End: 04-30-2023 ambulatory Ron Doreen Other [employer] Other Start: 04-30-2023 Office outpatient vi sit 15 minutes Ron Doreen [facility] Start: 04-06-2023 (INJECTION) INJECTION Ron Dore[facility] Start: 04-06-2023 End: 04-06-2023 ambulatory Ron Doreen Other [employer] Other Start: 04-06-2023 Telephone encounter Ron Doreen [facility] Start: 04-02-2023 End: 04-02-2023 ambulatory Ron Doreen Other [employer] Other Start: 04-02-2023 Office outpatient vi sit 15 minutes Ron Doreen [facility] Start: 04-02-2023 Telephone encounter Ron Doreen [facility] Start: 03-07-2023 End: 03-07-2023 ambulatory Ron Doreen Other [employer] Other Start: 03-07-2023 Office outpatient vi sit 15 minutes Ron Doreen [facility] Start: 01-22-2023 End: 01-23-2023 ambulatory RON DOREEN Facility: Start: 12-20-2022 End: 12-20-2022 ambulatory Ron Doreen Other [employer] Other Start: 12-20-2022 Office outpatient vi sit 15 minutes Ron Doreen [facility] Start: 12-17-2022 End: 12-18-[address] DHRUV RUBI . Facility:[facility] Start: 12-10-2022 End: 12-11-2022 ambulatory RON DOREEN Facility:[facility] Start: 11-20-2022 End: 11-21-[address] BENI APARICIO Facility:[facility] Start: 11-05-2022 End: 11-05-2022 ambulatory Ron Doreen Other [employer] Other Start: 11-05-2022 Office outpatient vi sit 15 minutes Ron Doreen [facility] Start: 10-29-2022 End: 10-30-[address] JANA MONSON Facility:[facility] Start: 10-24-2022 End: 10-24-[address] LILLIAN ACOSTA . Facility:[facility] Start: 10-24-2022 End: 10-25-[address] DHRUV RUBI . Facility:[facility] Start: 09-27-2022 End: 09-27-2022 ambulatory Jana Monson Other [employer] Other Start: 09-27-2022 Office outpatient vi sit 15 minutes Jana Monson [facility] Start: 09-18-2022 End: 09-19-2022 ambulatory RON DOREEN Facility:[facility] Start: 09-11-2022 End: 09-11-[address] DHRUV RUBI . Facility:[facility] Start: 08-22-2022 End: 08-22-2022 ambulatory Ron Doreen Other [employer] Other Start: 08-22-2022 Office outpatient vi sit 15 minutes Ron Doreen [facility] Start: 08-13-2022 End: 08-14-2022 ambulatory RON DOREEN Facility:[facility] Start: 06-25-2022 End: 06-26-[address] DHRUV RUBI . Facility:[facility] Start: 06-18-2022 End: 06-18-[address] DHRUV RUBI . Facility:[facility] Start: 06-01-2022 End: 06-02-[address] YANET HUERTA Facility:[facility] Start: 05-28-2022 End: 05-28-2022 ambulatory Ron Doreen Other [employer] Other Start: 05-28-2022 Telephone encounter Ron Doreen [facility] Start: 05-21-2022 End: 05-22-[address] DHRUV RUBI . Facility:[facility] Start: 05-16-2022 End: 05-16-2022 ambulatory Ron Doreen Other [employer] Other Start: 05-16-2022 Telephone encounter Ron Doreen [facility] Start: 05-10-2022 End: 05-10-2022 ambulatory Ron Doreen Other [employer] Other Start: 05-10-2022 Telephone encounter Ron Doreen [facility] Start: 05-08-2022 End: 05-08-2022 ambulatory Ron Doreen Other [employer] Other Start: 05-08-2022 Office outpatient vi sit 25 minutes Ron Doreen [facility] Start: 05-02-2022 End: 05-03-2022 ambulatory RON DOREEN Facility:[facility] Start: 04-24-2022 End: 04-24-2022 ambulatory Aziz Bakhous Other [employer] Other Start: 04-24-2022 Telephone encounter Aziz Bakhous [facility] Start: 01-18-2022 End: 01-18-2022 ambulatory Ron Doreen Other [employer] Other Start: 01-18-2022 Office outpatient vi sit 25 minutes Corina [facility] Start: 05-21-2017 End: 05-22-2017 Ambulatory DEFAULT PHYSICIAN Facility:[facility] Procedures Date Procedure Procedure Detail [...] vessel coronary artery bypass graft Marck Lazo CHARGE MASTER ANALYST-JANITORIAL ACCOUNT MANAGER Work Phone: History of coronary artery bypass grafting H/O four vessel coronary artery bypass graft Marie Garcia CHARGE MASTER ANALYST-JANITORIAL ACCOUNT MANAGER Work Phone: Plan of Treatment Date Care Activity Detail Author Start: 03-23-2026 End: 03-23-2026 Patient encounter procedure 03/23/2026 10:00 AM EDT Office Visit [facility] [address] [place] [address] Greg Tineo MD [address] [place] [address] [facility] Start: 06-14-2025 End: 06-14-2025 Patient encounter procedure 06/14/2025 10:10 AM EDT Office Visit [facility] [address] [place] [address] Lorraine Mayer MD [address] [place], [place] [id number] [facility] Start: 06-07-2025 Influenza vaccination [facility] Start: 04-21-2025 Urine culture [facility] Start: 04-21-2025 Bacteria identified in Urine by Culture Urine Culture [facility] Start: 03-23-2025 End: 03-23-2025 Patient encounter procedure 03/23/2025 2:30 PM EDT Office Visit [facility] [address] [place] [address] Greg Tineo MD [address] [place], [place] [id number] Arrived [facility] Comment on above: Arrived Start: 03-16-2025 End: 03-16-2025 Patient encounter procedure 03/16/2025 8:35 AM EDT Office Visit [facility] [address] [place] [address] Greg Tineo MD [address] [place] [address] [facility] Start: 02-15-2025 End: 02-15-2025 Patient encounter procedure [facility] Comment on above: Type 2 diabetes mellitus with hyperglyce constance, with long-term 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 ([facility]) Start: 01-16-2025 Adult BMI Screening Adult BMI Screening [facility] Start: 01-16-2025 Tobacco Screening Tobacco Screening [facility] Start: 12-31-2024 End: 12-31-2024 Patient encounter procedure 12/31/2024 10:15 AM EDT Procedure Visit [facility] [address] [place] [address] Ga Lai DPM [address] [place] [address] [facility] Start: 11-16-2024 End: 11-16-2024 Patient encounter procedure [facility] Comment on above: Type 2 diabetes mellitus with hyperglyce constance, with long-term 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 ([facility]) Start: 09-28-2024 End: 09-28-2024 [facility] Comment on above: Arrived Start: 07-13-2024 End: 07-13-2024 Patient encounter procedure [facility] Comment on above: Type 2 diabetes mellitus with hyperglyce constance, with long-term 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 ([facility]) Start: 06-25-2024 End: 06-25-2024 Patient encounter procedure [facility] Comment on above: Arrived Start: 06-07-2024 COVID-19 Vaccine ( season) COVID-19 Vaccine () [facility] Start: 06-07-2024 Influenza vaccination [facility] Start: 06-04-2024 End: 06-04-2024 [facility] Comment on above: Arrived Start: 03-19-2024 Adult BMI Screening Adult BMI Screening [facility] Start: 03-19-2024 Tobacco Screening Tobacco Screening [facility] Start: 02-21-2024 End: 02-21-2024 Patient encounter procedure 02/21/2024 2:00 PM EDT Office Visit [facility] [address] [place] [address] Thuan Lucas MD [address] [place] [address] [facility] Start: 01-24-2024 End: 01-16-2025 Basic metabolic 2000 panel - Serum or Plasma Basic Metabolic Panel Lab Routine Stage 4 chronic kidney disease ([facility]) Essential hypertension Expected: 01/24/2024 (Approximate), Expires: 01/16/2025 [facility] Work Phone: Comment on above: Expected: 01/24/2024 (Approximate), Expi res: 01/16/2025 Start: 01-24-2024 End: 01-24-2024 Clinical Support 01/24/2024 10:30 AM EDT Clinical Support [facility] [address] [place] [id number] [facility] Start: 01-17-2024 End: 01-17-2024 Patient encounter procedure 01/17/2024 1:00 PM EDT Office Visit [facility] [address] [place] [address] Sarthak Rueda MD [address] [place] [address] Thuan Lucas MD [address] [place] [address] [facility] Start: 06-07-2023 COVID-19 Vaccine ( season) COVID-19 Vaccine () [facility] Start: 06-07-2023 Influenza vaccination Influenza Vaccine [facility] Start: 12-28-2021 Depression Screening Depression Screening [facility] Start: 2009 Fall Risk Screening Fall Risk Screening [facility] Start: 1994 Administration of varicella zoster vaccine Zoster (Shingles) Vaccine (1 of 2) [facility] Start: 12-15-1963 DTaP,Tdap and Td Vaccines (1 - Tdap) DTaP,Tdap and Td Vaccines (1 - Tdap) [facility] Start: 1962 Adult BMI Follow Up Plan Adult BMI Follow Up Plan [facility] Start: 1956 Depression Screening Depression Screening [facility] Start: 1944 Medicare Annual Wellness Visit Medicare Annual Wellness Visit [facility] Dermatopathology exam Dermatopat hology exam Pathology and Cytology Timed Rash and other nonspecific skin eruption Release Upon Ordering for 1 Occurrences starting 05/25/2024 [facility] [employer] Work Phone: Comment on above: Release Upon Ordering for 1 Occurrences starting 05/25/2024 End: 12-12-2025 Lipid panel Lipid panel Lab Routine Medication management 1 Occurrences starting 2024 until 12/12/2025 [employer] Work Phone: Comment on above: 1 Occurrences starting 2024 until 12/12/2025 End: 12-12-2025 Magnesium [Mass/volume] in Serum or Plasma Magnesium Lab Routine Medication management 1 Occurrences starting 2024 until 12/12/2025 [employer] Work Phone: Comment on above: 1 Occurrences starting 2024 until 12/12/2025 Renal function 2000 panel - Serum or Plasma [facility] Immunizations Immunization Date Immunization Notes Care Provider Fa cili 07-11-2023 influenza virus vacc ine, unspecified formulation Lorraine Mayer MD Work Phone: [facility] 07-10-2022 unknown vaccine or immune globulin Ga Lai DPM Work Phone: [facility] 07-20-2021 unknown vaccine or immune globulin Ga Lai DPM Work Phone: [facility] 07-18-2020 Seasonal trivalent influenza vaccine, adjuvanted, preservative free Luis Quiles PA-C Work Phone: [facility] 07-18-2020 influenza virus vacc ine, unspecified formulation Luis Kb PA-C Work Phone: [facility] 07-22-2019 Seasonal trivalent influenza vaccine, adjuvanted, preservative free Luis Kb PA-C Work Phone: [facility] 07-20-2019 influenza, injectabl e, quadrivalent, preservative free Ga Lai DPM Work Phone: [facility] 07-14-2018 Seasonal trivalent influenza vaccine, adjuvanted, preservative free Luis Kb PA-C Work Phone: [facility] 07-15-2017 pneumococcal conjuga te vaccine, 13 valent Luis Kb PA-C Work Phone: [facility] 07-08-2017 influenza, high dose seasonal, preservative-free Luis Kb PA-C Work Phone: [facility] 07-25-2016 influenza, high dose seasonal, preservative-free Luis Kb PA-C Work Phone: [facility] 07-11-2015 influenza, high dose seasonal, preservative-free Luis Kb PA-C Work Phone: [facility] 07-16-2014 influenza, seasonal, injectable Luis Kb PA-C Work Phone: [facility] 07-10-2013 influenza, seasonal, injectable Luis Kb PA-C Work Phone: [facility] 08-08-2012 influenza virus vacc ine, unspecified formulation Luis Kb PA-C Work Phone: [facility] 08-08-2012 pneumococcal polysaccharide vaccine, 23 valent Luis Kb PA-C Work Phone: [facility] 07-11-2011 influenza virus vacc ine, unspecified formulation Luis Kb PA-C Work Phone: [facility] 08-15-2010 influenza virus vacc ine, unspecified formulation Luis Kb PA-C Work Phone: [facility] 07-26-2009 influenza virus vacc ine, unspecified formulation Luis Kb PA-C [facility] Phone[email or web address] 08-04-2008 influenza virus vacc ine, unspecified formulation Luis Kb PA-C Work Phone: [email or web address] 08-13-2007 influenza virus vacc ine, unspecified formulation Luis Kb PA-C Work Phone: [facility] 08-11-2004 influenza virus vacc ine, unspecified formulation Luis Kb PA-C Work Phone: [email or web address] 08-09-2003 influenza virus vacc ine, unspecified formulation Luis Kb PA-C Work Phone: [facility] 08-09-2003 pneumococcal polysaccharide vaccine, 23 valent Luis Kb PA-C [facility] Phone[facility] Payers Date Payer Category Payer Self-pay 2021 Medicaid AET MEDICARE A DVANTAGE [id number] 2021 Medicare [id number] 2021 Medicare O AETNA MEDICARE [id number] 1959 Medicare [id number] [id number] 1945 Unknown [id number] 2.16.840.1.242940.3.579.2.593 1944 Unknown [id number] 2.16.840.1.488346.3.579.2.593 1944 Unknown [id number] 2.16.840.1.285917.3.579.2.593 1944 Unknown [id number] 2.16.840.1.456455.3.579.2.593 1944 Unknown [id number] 2.16.840.1.988931.3.579.2.593 1944 Unknown [id number] 2.16.840.1.229232.3.579.2.593 1944 Unknown [id number] 2.16.840.1.987124.3.579.2.593 1944 Unknown [id number] 2.16.840.1.860564.3.579.2.593 1944 Unknown [id number] 2.16.840.1.218900.3.579.2.593 1944 Unknown [id number] 2.16.840.1.290985.3.579.2.593 1944 Unknown [id number] 2.16.840.1.705756.3.579.2.593 1944 Unknown [id number] 2.16.840.1.855805.3.579.2.593 1944 Unknown [id number] 2.16.840.1.374122.3.579.2.593 1944 Unknown [id number] 2.16.840.1.751580.3.579.2.593 1944 Unknown [id number] 2.16.840.1.295153.3.579.2.593 1944 Unknown [id number] 2.16.840.1.990787.3.579.2.593 1944 Unknown [id number] 2.16.840.1.681038.3.579.2.1286 1944 Unknown [id number] 2.16.840.1.065922.3.579.2.1259 1944 Unknown [id number] 2.16.840.1.954172.3.579.2.1259 1944 Unknown [id number] 2.16.840.1.838351.3.579.2.1259 1944 Unknown [id number] 2.16.840.1.284621.3.579.2.1259 1944 Unknown [id number] 2.16.840.1.187543.3.579.2.1259 1944 Unknown [id number] 2.16.840.1.236217.3.579.2.1259 1944 Unknown [id number] 2.16.840.1.813792.3.579.2.1259 1944 Unknown [id number] 2.16.840.1.488147.3.579.2.1259 1944 Unknown [id number] 2.16.840.1.811839.3.579.2.1259 1944 Unknown [id number] 2.16.840.1.032204.3.579.2.1259 Medicare Medicare [id number] Unknown Unknown [facility] [id number] Unknown [id number] 2.16.840.1.643583.3.579.2.531 Social History Date Type Detail Facility Unknown if ever smoked [employer] [facility] Start: 06-25-2024 End: 09-28-2024 Sex Assigned At [employer] [facility] Start: 03-14-2023 End: 06-15-2024 Tobacco smoking status [facility] Ex-smoker [facility] Healthcare End: 10-07-1969 History of tobacco use Current smoker [facility] End: 10-07-1969 History of tobacco use Cigarette Smoker [facility] Start: 03-14-2023 End: 01-17-2024 Tobacco use and exposure Smokeless tobacco non-user [facility] Start: 06-25-2024 End: 03-23-2025 Alcoholic beverage intake Not Asked [facility] Start: 06-25-2024 End: 09-28-2024 History of Social function [facility] Start: 10-21-2023 Alcohol Comment caffeine intake: 1-2 cups per day [facility] Start: 1945 Sex assigned at Not on file [facility] Start: 03-19-2023 End: 01-17-2024 Alcoholic beverage intake Ex-drinker (finding) [facility] Do you belong to any clubs or organizations such as scientologist groups, unions, fraternal or athletic groups, or school groups? No [facility] Are you now , , , , never or living with a partner? [facility] How hard is it for y ou to pay for the very basics like food, housing, medical care, and heating Not hard at all [facility] Do you feel stress - tense, restless, nervous, or anxious, or unable to sleep at night because your mind is troubled all the time - these days [OSQ] Not at all [facility] Start: 05-21-2017 End: 01-14-2025 Sex Female (finding) [facility] Start: 1945 Sex Assigned At Female [facility] Goals Date Patient Goal Desired Activity [...] year ago Established patient Lesions: Location: Left samaritan Duration: 1 year Quality: denies pain, denies [...] or higher 2. SEBORRHEIC KERATOSIS, INFLAMED Left Omega [place] and brown stuck on verrucous scaly papule [...] limited to risks of scarring, darker or dividend clerk pigmentary changes, recurrence, incomplete removal and infection. [...] or tenderness Cryotherapy, skin lesion - Left Omega 3. SOLAR PURPURA (2) Left Forearm - [...] Visit: 1 year documented in this encounter [facility] 02-25-2025 Note [facility] Cardiology Clinic Note Chief Complaint: Patient [...] gallops. RESPIRATORY: CTAB, (more content not included)... 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 Interim History: 03/2023 Follow-up visit on 03/12/2023 [...] she states GFR is 30, per her shipping track supervisor. Interim History: 08/24 Followup visit on 08/25/18 [...] reading of her . Lab done in BUN 28/creatinine 1.43, GFR 36, total cholesterol [...] MG capsule 1 capsule, Every 12 hours ucjksxpctaeh-fnuj-ghawsxfm-folic acid (Centrum) chewable tablet 1 tablet, Daily [...] Basal cell carcinoma CAD (coronary artery disease) ([facility]) Chronic kidney disease, stage III (moderate) (HCC) ([facility]) Current use of insulin ([facility] Diabetes ([facility]) Frozen shoulder GERD (gastroesophageal reflux disease) Gout 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[facility]) HLD (hyperlipidemia) ([facility]) HTN (hypertension) ([facility]) Hypoglycemia Hypothyroidism ([facility]) Obesity with body mass index (BMI) of 30.0 to 39.9 Squamous cell skin cancer Thyroid disease ([facility]) Type 2 diabetes mellitus with other diabetic kidney complication ([facility]) Vitamin D deficiency Past Surgical History: [...] hyperglycemia, with long-term 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 ([facility]) - POCT glucose manually resulted - POCT glycosylated hemoglobin (Hb A1C) docked device Vitamin D deficiency Microalbuminuria Hyperlipemia, mixed ([facility]) Primary hypertension ([facility] Insulin long-term use ([facility]) 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[facility]) Encounter for dietary consultation Chronic renal disease, stage IV ([facility]) Said her last GFR 27 Assessment [...] months (around 06/18/2025). documented in this encounter [facility] 12-21-2024 Miscellaneous Notes Phoned pt and lm on to call office for any further refills. Letter mailed to pt. documented in this encounter [facility] 12-21-2024 Telephone encounter Note Phoned pt and lm on to call office for any further refills. Letter mailed to pt. [facility] 12-12-2024 Miscellaneous Notes Last OV 01/17/24 Mg 01/01/24 Mg pended; refill letter mailed documented in this encounter [facility] 12-12-2024 Miscellaneous Notes Last OV 01/17/24 Lipid profile 07/08/23 Lipid panel pended; refill letter mailed documented in this encounter [facility] 12-12-2024 Telephone encounter Note Last OV 01/17/24 Mg 01/01/24 Mg pended; refill letter mailed [facility] 12-12-2024 Telephone encounter Note Last OV 01/17/24 Lipid profile 07/08/23 Lipid panel pended; refill letter mailed [facility] 11-27-2024 Note SUBJECTIVE Reason for Visit: Kylah [...] for a follow-up after being discharged from [facility] in February 2024. She was admitted [...] Diagnosis Acquired hypothyroidism Anemia Arthritis Atherosclerosis of [place] coronary artery of [place] heart without angina pectoris Combined forms of [...] 0.1 mg, o (more content not included)... [facility] 11-27-2024 Note Patient here for 6 m o follow up CAD, hypertension, MR, and diastolic dysfunction. Had echo in Jun 2024. She presented to [facility] ED last week with concerns of elevated BP. She takes clonidine PRN for elevated SBP > 200. Denies chest pain and SOB. Does feel palpitations. She wonders if the clonidine patches would help her. Review of Systems Cardiovascular: Positive for irregular heartbeat and palpitations. Musculoskeletal: Positive for myalgias. All other systems reviewed and are negative. [facility] 11-16-2024 History of Present illness Narrative Kylah [...] said last GFR around 30 with her shipping track supervisor. Interim History: 03/2023 Follow-up visit on 03/12/2023 [...] she states GFR is 30, per her shipping track supervisor. Interim History: 08/24 Followup visit on 08/25/18 [...] reading of her . Lab done in BUN 28/creatinine 1.43, GFR 36, total cholesterol [...] MG capsule 1 capsule, Every 12 hours vmuytuamnbvz-dwfm-swyjtccd-folic acid (Centrum) chewable tablet 1 tablet, Daily [...] 39.9 Squamous cell skin cancer Thyroid disease ([facility]) Type 2 diabetes mellitus with other diabetic kidney complication ([facility]) Vitamin D deficiency Past Surgical History: [...] hyperglycemia, with long-term 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 ([facility]) - POCT glucose manually resulted - [...] months (around 03/16/2025). documented in this encounter [facility] 09-06-2024 History of Present illness Narrative Images [...] if problems arise. documented in this encounter [facility] 09-05-2024 Miscellaneous Notes [facility] 01/17/24 [facility] 01/01/24 documented in this encounter [facility] 09-05-2024 Telephone encounter Note [facility] 01/17/24 [facility] 01/01/24 [facility] 07-13-2024 History of Present illness Narrative Kylah [...] said last GFR around 30 with her shipping track supervisor. Interim History: 03/2023 Follow-up visit on 03/12/2023 [...] she states GFR is 30, per her shipping track supervisor. Interim History: 08/24 Followup visit on 08/25/18 [...] reading of her . Lab done in BUN 28/creatinine 1.43, GFR 36, total cholesterol [...] MG capsule 1 capsule, Every 12 hours tbmrdalytbma-zbut-ehnuasgp-folic acid (Centrum) chewable tablet 1 tablet, Oral, [...] Basal cell carcinoma CAD (coronary artery disease) ([facility]) Chronic kidney disease, stage III (moderate) (HCC) ([facility]) Current use of insulin ([facility] Diabetes ([facility]) Frozen shoulder GERD (gastroesophageal reflux disease) Gout 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[facility]) HLD (hyperlipidemia) ([facility] HTN (hypertension) ([facility]) Hypoglycemia Hypothyroidism ([facility]) Obesity with body mass index (BMI) of 30.0 to 39.9 Squamous cell skin cancer Thyroid disease ([facility]) Type 2 diabetes mellitus with other diabetic kidney complication ([facility]) Vitamin D deficiency Past Surgical History: [...] hyperglycemia, with long-term 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 ([facility]) - POCT glucose manually resulted We will continue long-acting 30 units does not remember the name, short-acting 07/18/15 according to meal size Vitamin D deficiency Microalbuminuria Hyperlipemia, mixed ([facility]) Primary hypertension ([facility]) Insulin long-term use ([facility]) 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[facility]) Continue levothyroxine 150 and Cytomel 5 Encounter for dietary consultation Chronic renal disease, stage IV ([facility]) Follow up in about 4 months (around 11/13/2024). documented in this encounter [facility] 06-25-2024 History of Present illness Narrative [...] the callous site. documented in this encounter [facility] 06-04-2024 History of Present illness Narrative Follow up Diagnosis: Rash unspecified Location: hands Procedure performed: Punch biopsy Status: not as painful Date of procedure: 05/25/2024 Current treatment: Betamethasone Dipro 0.05% cream, here for biopsy results Suture Removal Patient here for suture removal: No complaints of redness, drainage or swelling at site, compliant with wound care. Location: Right Hypothenar [place] Procedure Performed: Punch biopsy Date of Procedure: 05/25/2024 Medications: Betamethasone All pertinent medical history, medications, and allergies were reviewed. General Exam: alert , oriented to person, place, and time , normal affect, well appearing Unaccompanied A focused exam completed based on patient reported problems, see below: 1. Granuloma annulare Left Hand - Anterior, Right Hand - Anterior [place] indurated annular plaques. Flaring today, but improved [...] any new/changing lesions documented in this encounter [facility] 05-25-2024 History of Present illness Narrative Images [...] and other nonspecific skin eruption Right [place]othenar [place] plaques Biopsy today, see procedure note. Start Betamethasone cream bid when flared, hold when clear. Lesion biopsy - Right [place]ot[place] Type of biopsy: punch Informed consent: discussed [...] pending biopsy results documented in this encounter [facility] 05-11-2024 Note [facility] Cardiology Clinic Note Chief Complaint: Patient here for follow up [facility] discharge back in February 2024. She [...] ventricular gram/pressure Indications (more content not included)... [facility] 03-18-2024 Miscellaneous Notes Asad 01/17/24 Mg 07/08/23 -per 07/09/23 refill encounter Pt needs mg, orders in place. documented in this encounter [facility] 03-18-2024 Telephone encounter Note Asad 01/17/24 Mg 07/08/23 -per 07/09/23 refill encounter Pt needs mg, orders in place. [facility] 01-17-2024 History of Present illness Narrative Kylah Robin Date of visit: 01/17/2024 Date of : 1945 Age: 78 y.o. Patient Active Problem List Diagnosis Diabetes mellitus [place] Hypertensive urgency Arthritis Dyspnea Other forms of angina pectoris [place] Unstable angina [place] Obesity (BMI 30-39.9) H/O four vessel coronary artery bypass graft Paroxysmal atrial fibrillation [place] Atherosclerosis of [place] coronary artery of [place] heart without angina pectoris Obesity (BMI 30-39.9) Essential hypertension Other hyperlipidemia Class 1 obesity in adult Stage 4 chronic kidney disease ([facility] 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 She was recently hospitalized at [facility] for poorly controlled blood pressure. Her blood [...] pain Chronic kidney disease COVID-19 Diabetes mellitus ([facility]) Dyspnea Edema GERD (gastroesophageal reflux disease) Gout Hyperlipidemia Hypertensive urgency Hypothyroidism Lower back pain Mitral regurgitation Osteopenia Ventricular hypertrophy No data recorded No data recorded No data recorded Past Surgical History: Procedure Laterality Date CARDIAC CATHETERIZATION CATARACT EXTRACTION, BILATERAL CHOLECYSTECTOMY COLONOSCOPY Coronary angiogram and left ventricular gram/pressure N/A 12/28/2020 Performed by Kassie Nicole MD at [facility] CARDIAC CATH LABS CORONARY ARTERY BYPASS GRAFT X 4 with OCASIO and SVG x3 / EVH LEFT upper and lower AND RIGHT upper LEG / LUCAS N/A 12/29/2020 Performed by Herrera De Paz MD at [facility] FIRST TRIMESTER / TX INCOMPLETE [...] min Stress: No Stress Concern Present (12/28/2020) [employer] [place] [employer] - Occupational Stress Questionnaire Feeling of Stress : Not at all Social Connections: Moderately Integrated (12/28/2020) Social Connection and Isolation Panel [NHANES] Frequency of Communication with Friends and Family: More than three times a week Frequency of Social Gatherings with Friends and Family: More than three times a week Attends Ep[employer] Services: More than 4 times per year [...] tablet Reorder IMPRESSIONS/PLAN 1. Paroxysmal atrial fibrillation ([facility]) - POCT EKG - carvediloL (COREG) 25 mg tablet; Take 2 tablets (50 mg total) by mouth in the morning and 2 tablets (50 mg total) before bedtime. Dispense: 180 tablet; Refill: 3 2. Stage 4 chronic kidney disease ([facility]) - Basic Metabolic Panel; Future 3. 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 Other forms of angina pectoris ([facility] 5. Essential hypertension - Basic Metabolic Panel; Future 6. Atherosclerosis of [place] coronary artery of [place] heart without angina pectoris 7. H/O four [...] BNP. 2. Atherosclerosis of coronary arteries of [place] heart without angina pectoris. Patient has had [...] RUBI MD Referring Physician: Dhruv Rubi MD [employer] [place] [address] documented in this encounter [facility] 01-16-2024 Miscellaneous Notes Called patient to remind them to bring their most current copy of their medication list with them to their appt. Patient verbalizes understanding. documented in this encounter [facility] 01-16-2024 Telephone encounter Note Called patient to remind them to bring their most current copy of their medication list with them to their appt. Patient verbalizes understanding. [facility] 11-18-2023 Evaluation note Encounter Date Diagnosis Assessment [...] potassium improved with dietary restriction and Lasix. [employer] [facility] 01-29-2024 Evaluation note* Encounter Date Diagnosis Assessment Notes Treatment Notes Treatment Clinical Notes Oct, Anemia of renal disease (ICD-10 - D63.1) Oct, CKD (chronic kidney disease) stage 4, GFR 15-29 ml/min (ICD-10 - N18.4) [facility] 01-09-2024 Evaluation note* Encounter Date Diagnosis [...] potassium improved with dietary restriction and Lasix. [facility] 12-04-2023 Evaluation note* Encounter Date Diagnosis [...] 4, GFR 15-29 ml/min (ICD-10 - N18.4) [facility] 11-21-2023 Evaluation note* Encounter Date Diagnosis Assessment Notes Treatment Notes Treatment Clinical Notes Aug, Anemia of renal disease (ICD-10 - D63.1) Aug, CKD (chronic kidney disease) stage 4, GFR 15-29 ml/min (ICD-10 - N18.4) [employer] [facility] 11-09-2023 Evaluation note* Encounter Date Diagnosis [...] of kidney mass hydronephrosis or kidney stones. [employer] [facility] 10-26-2023 Evaluation note* Encounter Date Diagnosis [...] potassium improved with dietary restriction and Lasix. [employer] [facility] 09-18-2023 Evaluation note* Encounter Date Diagnosis [...] potassium improved with dietary restriction and Lasix. [employer] [facility] 08-31-2023 Evaluation note* Encounter Date Diagnosis [...] potassium improved with dietary restriction and Lasix. [facility] 07-25-2023 Evaluation note* Encounter Date Diagnosis [...] to normal with dietary restriction and Lasix. [employer] Other 07-01-2023 Evaluation note* Encounter Date Diagnosis Assessment Notes Treatment Notes Treatment Clinical Notes Apr, CKD (chronic kidney disease) stage 4, GFR 15-29 ml/min (ICD-10 - N18.4) Apr, Anemia of renal disease (ICD-10 - D63.1) [employer] Other 06-27-2023 Evaluation note* Encounter Date Diagnosis [...] to normal with dietary restriction and Lasix. [employer] Other 06-01-2023 Evaluation note* Encounter Date Diagnosis [...] potassium diet and provide information about it. [employer] Other 03-16-2023 Evaluation note* Encounter Date Diagnosis [...] to Continue Vit D 5000 units daily [employer] Other 01-30-2023 Evaluation note* Encounter Date Diagnosis [...] to Continue Vit D 5000 units daily [employer] Other 12-22-2022 Evaluation note* Encounter Date Diagnosis [...] to Continue Vit D 5000 units daily [employer] Other 11-16-2022 Evaluation note* Encounter Date Diagnosis [...] to Continue Vit D 5000 units daily [employer] Other 08-04-2022 Evaluation note* Encounter Date Diagnosis Assessment Notes Treatment Notes Treatment Clinical Notes May, Hypertensive chronic kidney disease with stage 1 through stage 4 chronic kidney disease, or unspecified chronic kidney disease (ICD-10 - I12.9) [employer] Other 08-02-2022 Evaluation note* Encounter Date Diagnosis [...] to Continue Vit D 5000 units daily [employer] Other 07-19-2022 Evaluation note* Encounter Date Diagnosis Assessment Notes Treatment Notes Treatment Clinical Notes Apr, Hypertensive chronic kidney disease with stage 1 through stage 4 chronic kidney disease, or unspecified chronic kidney disease (ICD-10 - I12.9) [employer] Other 04-14-2022 Evaluation note* Encounter Date Diagnosis [...] to take Vit D 1000 units daily [employer] Other Evaluation noteNo InformationNort GramVaani Other Evaluation note* Diagnosis Type 2 diabetes mellitus with hyperglycemia, with long-term 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 ([facility])- Primary Vitamin D deficiency Microalbuminuria Proteinuria Hyperlipemia, mixed ([facility]) Mixed hyperlipidemia Primary hypertension ([facility]) Unspecified essential hypertension Insulin long-term use ([facility]) Encounter for long-term (current) use of insulin 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[facility]) Chronic lymphocytic thyroiditis Encounter for dietary consultation Chronic renal disease, stage IV ([facility]) Chronic kidney disease, Stage IV (severe) documented in this encounter [facility] HealthcareEvaluation [facility]* Diagnosis Rash and other nonspecific skin eruption- Primary documented in this encounter [facility] HealthcareEvaluation note* Diagnosis Granuloma annulare- Primary Other specified erythematous condition documented in this encounter [facility] HealthcareEvaluation note* Diagnosis Onychomycosis- Primary Dermatophytosis of nail Pain in both feet Corns and callosities Type 2 diabetes mellitus without complication, with long-term 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 ([facility]) documented in this encounter [facility] HealthcareEvaluation note* Diagnosis Onychomycosis- Primary Dermatophytosis of nail Pain in both feet Corns and callosities Type 2 diabetes mellitus without complication, with long-term 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 [place] documented in this encounter [facility] HealthcareEvaluation note* Diagnosis Type 2 diabetes mellitus with hyperglycemia, with long-term 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 [place] Primary Vitamin D deficiency Microalbuminuria Proteinuria Hyperlipemia, mixed [place] Mixed hyperlipidemia Primary hypertension [place] Unspecified essential hypertension Insulin long-term use [place] Encounter for long-term (current) use of insulin 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[facility] Chronic lymphocytic thyroiditis Encounter for dietary consultation Chronic renal disease, stage IV ([facility]) Chronic kidney disease, Stage IV (severe) documented in this encounter [facility] HealthcareEvaluation note* Diagnosis Atherosclerosis of [place] coronary artery of [place] heart without angina 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 Hypertensive urgency Shortness of breath Paroxysmal atrial fibrillation ([facility]) Atrial fibrillation Localized edema Edema documented in this encounter [facility]* Diagnosis Paroxysmal atrial fibrillation ([facility])- Primary Atrial fibrillation Stage 4 chronic kidney disease ([facility]) 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 ([facility]) Other forms of angina pectoris [place] Essential hypertension Unspecified essential hypertension Atherosclerosis of [place] coronary artery of [place] heart without angina 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 Hypertensive urgency Shortness of breath Localized edema Edema documented in this encounter [facility]* Diagnosis Medication management- Primary documented in this encounter [facility]* Diagnosis Medication management- Primary Atherosclerosis of [place] coronary artery of [place] heart without angina 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 Hypertensive urgency Shortness of breath Paroxysmal atrial fibrillation ([facility]) Atrial fibrillation Localized edema Edema [facility] Diagnosis Onset Date [...] kidney disease acute January 14, 2025 8:59am [facility] Work Phone: Evaluation note* Diagnosis Type 2 diabetes mellitus with hyperglycemia, with long-term 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 ([facility])- Primary Vitamin D deficiency Microalbuminuria Proteinuria Hyperlipemia, mixed ([facility]) Mixed hyperlipidemia Primary hypertension ([facility]) Unspecified essential hypertension Insulin long-term use ([facility]) Encounter for long-term (current) use of insulin 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[facility]) Chronic lymphocytic thyroiditis Encounter for dietary consultation Chronic renal disease, stage IV ([facility]) Chronic kidney disease, Stage IV (severe) documented in this encounter [facility] HealthcareEvaluation note* Diagnosis Hyperlipidemia, unspecified hyperlipidemia type- Primary Atherosclerosis of [place] coronary artery of [place] heart without angina 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 Hypertensive urgency Shortness of breath Paroxysmal atrial fibrillation ([facility]) Atrial fibrillation Localized edema Edema documented in this encounter [facility] System[facility] note* Diagnosis Seborrheic keratosis- Primary Seborrheic keratosis, inflamed Solar purpura Lentigines documented in this encounter [facility] HealthcareEvaluation noteNo assessment information availableSelect [facility] Work Phone: History general Narrative - Reported* [...] History SEE ABOVE Hospitalization History COVID 09/2020 [employer] Other history general Narrative - Reported* Type [...] History SEE ABOVE Hospitalization History COVID 09/2020 [employer] Other history general Narrative - Reported* Type [...] History SEE ABOVE Hospitalization History COVID 09/2020 [employer] [facility] Other History general Narrative - ReportedNort GramVaani Other Histlwt general Narrative - Reported* Type Description Date [...] History SEE ABOVE Hospitalization History COVID 09/2020 [employer] Other InstructionsNot on filedocumented in this encounter [...] for referral (narrative)No reason for referral [facility] Work [facility]: Summary Purpose Family [...] section and content) DATE CREATED AUTHOR 04/02/2018 [facility] DATE CREATED AUTHOR AUTHOR'S ORGANIZ ATION 01/27/2023 [facility] DATE CREATED AUTHOR AUTHOR'S ORGANIZ ATION 01/18/2024 [facility] DATE CREATED AUTHOR AUTHOR'S ORGANIZ ATION 03/03/2025 [facility] DATE CREATED AUTHOR AUTHOR'S ORGANIZ ATION 03/26/2025 [facility] DATE CREATED AUTHOR AUTHOR'S ORGANIZ ATION 04/27/2025 [facility] REASON FOR VISIT (unrecogniz [...] April 21, 2025 End: April 21, 2025 Portfolio Assistant Relationship Specialty Start Date End Date Dhruv Rubi MD [address] [facility] [place] [address] PCP - General Family Medicine 10/22/23 Portfolio Assistant Relationship Specialty Start Date End Date Dhruv Rubi MD [address] [facility] [place] [address] PCP - General Family Medicine 10/22/23 Portfolio Assistant Relationship Specialty Start Date End Date Dhruv Rubi MD [address] [facility] [place] [address] PCP - General Family Medicine 10/22/23 Portfolio Assistant Relationship Specialty Start Date End Date Dhruv Rubi MD [address] [facility] [place] [address] PCP - General Family Medicine 10/22/23 Portfolio Assistant Relationship Specialty Start Date End Date Dhruv Rubi MD [address] [facility] [place] [address] PCP - General Family Medicine 10/22/23 Portfolio Assistant Relationship Specialty Start Date End Date Dhruv Rubi MD [address] [facility] [place] [address] PCP - General Family Medicine 10/22/23 Portfolio Assistant Relationship Specialty Start Date End Date Dhruv Rubi MD [address] [facility] [place] [address] PCP - General Family Medicine 10/22/23 Portfolio Assistant Relationship Specialty Start Date End Date Dhruv Rubi MD [address] [place] [phone] PCP - General Family Medicine 10/22/23 Portfolio Assistant Relationship Specialty Start Date End Date Dhruv Rubi MD [address] [place] [address] PCP - General Family Medicine 10/22/23 Portfolio Assistant Relationship Specialty Start Date End Date Dhruv Rubi MD [address] [place] [address] PCP - General Family Medicine 10/20/20 Portfolio Assistant Relationship Specialty [place] [address] [place], [place] [phone] PCP - General Family Medicine 10/20/20 Portfolio Assistant Relationship Specialty Start Date End Date Dhruv Rubi MD [address] [place] [phone] PCP - General Family Medicine 10/20/20 Portfolio Assistant Relationship Specialty Start Date End Date Dhruv Rubi MD [address] [place] [address] PCP - General Family Medicine 10/20/20 Portfolio Assistant Relationship Specialty Start Date End Date Dhruv Rubi MD PCP - General Family Medicine 10/20/20 Portfolio Assistant Relationship Specialty Start Date End Date Dhruv Rubi MD PCP - General Family Medicine 10/20/20 Portfolio Assistant Relationship Specialty Start Date End Date Dhruv Rubi MD PCP - General Family Medicine 10/20/20 Portfolio Assistant Relationship Specialty Start Date End Date Dhruv [...] January 14, 2025 End: January 14, 2025 Portfolio Assistant Relationship Specialty Start Date End Date Dhruv Rubi MD PCP - General Family Medicine 10/22/23 Portfolio Assistant Relationship Specialty Start Date End Date Dhruv Rubi MD PCP - General Family Medicine 10/22/23 Portfolio Assistant Relationship Specialty Start Date End Date Dhruv Rubi MD PCP - General Family Medicine 10/20/20 Portfolio Assistant Relationship Specialty Start Date End Date Dhruv Rubi MD PCP - General Family Medicine 10/22/23 Portfolio Assistant Relationship Specialty Start Date End Date Dhruv [...] BE BASED ON THE PRIMARY CLINICAL RECORDS. [facility]. provides no warranty or guarantee of the accuracy or completeness of information in this document.
== END 2025-05-25 12:30 | disposition home or self-care (01) ==
LOC: LAB 12:29
PROVIDERS: PCP Family Medicine; Visit Provider Family Medicine
DX: R30.0 Dysuria (principal)
CPT/HCPCS: 81001; 87086; 87088; 87186

== ENCOUNTER 2025-06-16 06:43 | Outpatient (OUT) | payer MEDICARE, SELFPAY ==
--- OUTSIDE RECORDS SUMMARY | 2025-05-25 07:30 | XMS_ITS ---
Author Organization [facility] in [place] Address [address] [place] [address] Care Team Providers Care Kitchen Help Handyman Name Role Phone Jeff Rubi Primary Care Provider REASON FOR VISIT UTI Encounters Encounter Location Date Provider Diagnosis [id number] [place] [address] 05/25/2025 Jeff Rbui Dysuria R30.0 Assessments Encounter Date Diagnosis (ICD Code) Assessment Notes Treatment Notes Treatment Clinical Notes Section Notes 05/25/2025 Dysuria (ICD-10 - R30.0) Plan Of Treatment Pending Test Test Name Order Date UA (URINALYSIS, COMPLETE) 05/25/2025 Urine Culture 05/25/2025 Progress Notes * LOBITO LandryHandyOB:1945 (79 yo F)Acc No.[id number]:05/25/2025 Patient: Mercedez MEAD :1945 A ge:79 Y S ex:Female Address:[address] [place] [address] [address] , [place] [address] Subjective: * Chief Complaints: * U TI * Medical History: * Surgical History: * Hospitalization/Major Diagno stic Procedure: * Medications: Objective: * Vitals: * Physical Examination: Assessment: * Assessment: 1. D ysuria - R30.0 (Primary) Plan: * Treatment: * Procedure Codes: * true * Date: Generated for Petar alcala/Candie/Georgetteitting on: 0 06/16/2025 06:46 AM EDT
--- OUTSIDE RECORDS SUMMARY | 2025-05-28 08:58 | XMS_ITS ---
Author Organization [facility] in [place] Address [address] [place] [address] Care Team Providers Care Box Builder Name Role Phone Jeff Rubi Primary Care Provider [phone] Medications Medication SIG (Take, Route, Frequency, Duration) Notes Start Date End Date Status Doxycycline Monohydrate 100 MG 1 tablet Orally Once a day for 10 days 05/28/2025 Active Encounters Encounter Location Date Provider Diagnosis [facility] [address] [place] [address] 05/28/2025 Jeff Godwinmary Plan Of Treatment Medication Medication Name Sig Start Date Stop Date Notes Paxlovid (150/100) 10 x 150 MG & 10 x 100MG as directed Orally bid 05/03/2025 Azithromycin 250 MG 2 tabs today then 1 tab Orally daily 05/03/2025 Doxycycline Monohydrate 100 MG 1 tablet Orally Once a day for 10 days 05/28/2025 Progress Notes * Nancy ROBINOB:1945 (79 yo F)Acc No.[id number]:05/28/2025 Patient: Mercedez MEAD :1945 A ge:79 Y S ex:Female Address:[address] [place] [address] [address], [place] [address] * Refills Stop Paxlovid (150/100) Tablet Therapy Pack, 10 x 150 MG & 10 x 100MG, Orally, as directed, bid Stop Azithromycin Tablet, 250 MG, Orally, 2 tabs today then 1 tab, daily Start Doxycycline Monohydrate Tablet, 100 MG, Orally, 10, 1 tablet, Once a day, 10 days, Refills=0 * true * Date: Generated for Petar alcala/Candie/Maritza on: 0 06/16/2025 06:46 AM EDT
--- OUTSIDE RECORDS SUMMARY | 2025-06-02 06:40 | XMS_ITS ---
Author Organization [facility] in [place] Address [address] [place] [address] Care Team Providers Care Fender Repairer Name Role Phone Jeff Rubi Primary Care Provider [phone] REASON FOR VISIT Dexcom Encounters Encounter Location Date Provider Diagnosis [facility] [address] [place] [address] 06/02/2025 Jeff Rubi Plan Of Treatment No Information Progress Notes * LOBITOLandry RODRIGUESwilbertoeDOB:1945 (79 yo F)Acc No.[id number]:06/02/2025 UNLOCKED PROGRESS NOTE Patient: Mercedez MEAD :1945 A ge:79 Y S ex:Female Address:[address] [place] [address] [address], [place] [address] * * Date:
--- OUTSIDE RECORDS SUMMARY | 2025-06-08 04:30 | XMS_ITS ---
Author Organization [facility] [place] Address [address] [place] [address] Care Team Providers Care Director Of Social Work Name Role Phone Jeff Rubi Primary Care Provider Allergies Allergen (clinical drug ingredient) Drug/Non Drug Allergy documented on EMR Reaction Allergy Type Onset Date Status amoxicillin / clavulanate Augmentin Unknown Drug Allergy Active sulfamethoxazole / trimethoprim Bactrim Unknown Drug Allergy Active doxazosin Cardura Unknown Drug Allergy Active amlodipine Norvasc Unknown Drug Allergy Active REASON FOR VISIT Cough, Congestion- started - no fever- just chills Medications Medication SIG (Take, Route, Frequency, Duration) Notes Start Date End Date Status Carvedilol 25 mg TAKE 1 TABLET BY CHA TWICE DAILY (7AM and 7PM) WITH FOOD for 30 Active Aspirin 81 81 MG 1 tablet Orally Once a day Active Allopurinol 300 MG 1 tablet Orally Once a day for 30 days Active levoFLOXacin 750 MG 1 tablet Orally Once a day for 10 day(s) 06/08/2025 Active Accu-Chek Holly Plus w/Device as directed Active Tresiba FlexTouch 100 UNIT/ML 30 units Subcutaneous Twice Daily Active Synvisc One 48 MG/6ML Inject Intra-artic ular In right knee for 180 days 04/20/2025 Active Pantoprazole Sodium 40 mg TAKE 1 TABLET BY MOUTH DAILY for 90 Active predniSONE 20 MG 3 tablets Orally Onc e a day for 5 days 06/08/2025 Active Cefdinir 300 MG 2 capsule Orally onc e a day for 10 days 06/08/2025 Active OneTouch Ultra Test test blood glucose d aily for 90 days Active OneTouch Ultra Blue Active OneTouch Ultra 2 Act janet NovoLOG FlexPen 100 UNIT/ML 12 in mornin g, 16 at lunch, 22 at supper Subcutaneous Active Magnesium Oxide 400 MG 1 tablet Orally t hree times daily Active Benzonatate 200 MG 1 capsule Orally Thr ee times a day for 7 days 06/08/2025 Active Lipitor 80 MG 1 tablet Orally Once a day Active Nitroglycerin 0.4 MG as directed Sublingual PRN Active Levothyroxine Sodium 100 mcg TAKE 1 TABLET BY MOUTH IN THE MORNING ON AN EMPTY STOMACH for 90 Active Lasix 20 MG 1 tablet Orally Once a day Active Lancets Super Thin A ctive Isosorbide Mononitrate ER 120 MG 1 tablet Oral once daily for 30 days Active Liothyronine Sodium 5 mcg Take 1 tablet orally once daily for 30 days Active hydrALAZINE HCl 50 MG 1 tablet with food Orally Three times a day Active Ferrous Sulfate 325 (65 Fe) MG 1 tablet Orally Twice Daily Active cloNIDine HCl 0.1 MG 1 tablet every four hours as needed Orally Q4 for 30 days As needed Active Social History Tobacco Use: Social History Observation Description Date Details (start date - stop date) Never Smoker NA - NA Tobacco Use/Smoking Question Answer Notes Patient is a nonsmoker Vital Signs Weight 190.4 lbs 06/08/2025 Height 66 in 06/08/2025 Blood pressure systolic 168 mm Hg 06/08/20 25 Blood pressure diastolic 62 mm Hg 025 BMI 30.73 kg/m2 06/08/2025 Encounters Encounter Location Date Provider Diagnosis [facility] [address] [place] [address] 06/08/2025 Jeff Rubi Acute bronchitis, unspecified organism J20.9 Assessments Encounter Date Diagnosis (ICD Code) Assessment Notes Treatment Notes Treatment Clinical Notes Section Notes 06/08/2025 Acute bronchitis, unspecified organism (ICD-10 - J20.9) Rest and drink more liquids, especially water. You may use a humidifier or vaporizer to help keep the drainage moist. Pnkm-oty-uhlrvdg Nasal Saline may help the stuffy and runny nose. Use Ibuprofen and or Tylenol as needed for fever, chills, body aches or pain. Children 5 years old should not be given fmis-bsu-kbqnrra cough and cold medications such as guaifenesin and dextromethorphan. If you're over age 5, you may try qccd-xpr-onefpeq cold medications such as guaifenesin and dextromethorphan, [...] if symptoms do not improve within 3-5 days. If you develop severe symptoms such as shortness of breath, repeated vomiting, coughing up blood, or chest pain you should go to the emergency room or call 911 Plan Of Treatment Medication Medication Name Sig Start Date Stop Date Notes levoFLOXacin 750 MG 1 tablet Orally Once a day for 10 day(s) 06/08/2025 predniSONE 20 MG 3 tablets Orally Once a day for 5 days Cefdinir 300 MG 2 capsule Orally onc e a day for 10 days 06/08/2025 Benzonatate 200 MG 1 capsule Orally Thr ee times a day for 7 days 06/08/2025 Treatment Notes Assessment Notes Acute bronchitis, unspecified organism R est and drink more liquids, especially water. You may use a humidifier or vaporizer to help keep the drainage moist. Faif-nxr-mtzbrek Nasal Saline may help the stuffy and runny nose. Use Ibuprofen and or Tylenol as needed for fever, chills, body aches or pain. Children 5 years old should not be given imom-poq-hqvbymj cough and cold medications such as guaifenesin and dextromethorphan. If you're over age 5, you may try gacw-qxw-qpbszml cold medications such as guaifenesin and dextromethorphan, [...] if symptoms do not improve within 3-5 days. If you develop severe symptoms such as shortness of breath, repeated vomiting, coughing up blood, or chest pain you should go to the emergency room or call 911 Next Appt Details Follow Up: 3-5 days if not i mproving, Reason: Progress Notes * Garima ROBINeDOB:1945 (79 yo F)Acc No.[id number]:06/08/2025 Progress Note Patient: Mercedez MEAD Provider: Ian Rubi ([facility])MD :1945 A ge:79 Y S ex:Female Date:06/08/2025 Address:[address] [place], [place] [id number] Check In:08:22 AM ESTCheck O ut:08:47 AM EST Subjective: * Chief Complaints: * C ough, Congestion- started - no fever- just chills * HPI: B ronchitis: The patient complains of symptoms of bronchitis. The symptoms have been present for 3-4 days. The symptoms are moderate. The patient has not been exposed to sick contacts. Symptomatic treatment has included OTC medication. Associated symptoms include nasal congestion, postnasal drainage, congested ears, cough, fever, chills, body aches. * ROS: E NT: Ear pain d enies. H oarseness d enies. ? C ardiovascular: Edema d enies. P alpitations d enies. ? R espiratory: Comments S ee HPI for details. G astrointestinal: Abdominal pain d enies. D iarrhea d enies. N ausea d enies. S kin: Rash d enies. 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 Modified On:02/25/2024U Status:confirmed E03.9 Acquired hypothyroid ism Modified On:02/25/2024U Status:confirmed I16.1 Hypertensive emergen cy Modified On:03/25/2024 Status:confirmed E83.42 Hypomagnesemia Modified On:03/25/2024 Status:confirmed I10 Hypertensive urgency Modified On:04/06/2024 Status:confirmed E11.9 DM2 (diabetes [facility], type 2) Modified On:04/06/2024 Status:confirmed I25.10 CAD (coronary artery disease) Modified On:04/06/2024 Status:confirmed E03.9 Hypothyroidism Modified On:04/06/2024 Status:confirmed L25.9 Contact dermatitis Modified On:04/30/2024U Status:confirmed M81.0 Age-related osteopor osis without current pathological fracture Modified On:06/09/2024 Status:confirmed N39.0 UTI (urinary tract i nfection) Modified On:09/04/2024U Status:confirmed I11.0 Hypertensive heart d isease with heart failure Modified On:11/18/2024U Status:confirmed 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 S on(s): alive. D paula(s): alive. 5 brother(s) , 2 sister(s) . 1 son(s) , 3 daughter(s) . . * Social History: T obacco Use: T obacco Use/Smoking P atient is a n onsmoker * Medications: T akingAccu-Chek Holly Plus(Blood Glucose Monitoring Suppl) w/Device Kit as directed Allopurinol 300 MG Tablet 1 tablet Orally Once a day Aspirin 81(Aspirin) 81 MG Tablet Delayed Release 1 tablet Orally Once a day Carvedilol 25 mg Tablet TAKE 1 TABLET BY MOUTH TWICE DAILY (7AM and 7PM) WITH FOOD cloNIDine HCl 0.1 MG Tablet 1 tablet every four hours as needed Orally Q4 As neededFerrous Sulfate 325 (65 Fe) MG Tablet 1 tablet Orally Twice Daily hydrALAZINE HCl 50 MG Tablet 1 tablet with food Orally Three times a day Isosorbide Mononitrate ER 120 MG Tablet Extended Release 24 Hour 1 tablet Oral once daily Lancets Super Thin Lasix(Furosemide) 20 MG Tablet 1 tablet Orally Once a day Levothyroxine Sodium 100 mcg Tablet TAKE 1 TABLET BY MOUTH IN THE MORNING ON AN EMPTY STOMACH Liothyronine Sodium 5 mcg Tablet Take 1 tablet orally once daily Lipitor(Atorvastatin Calcium) 80 MG Tablet 1 tablet Orally Once a day Magnesium Oxide 400 MG Tablet 1 tablet Orally three times daily Nitroglycerin 0.4 MG Tablet Sublingual as directed Sublingual , Notes to Pharmacist: PRNNovoLOG FlexPen(Insulin Aspart) 100 UNIT/ML Solution Pen-injector 12 in morning, 16 at lunch, 22 at supper Subcutaneous OneTouch Ultra 2 OneTouch Ultra Blue OneTouch Ultra Test test blood glucose daily Pantoprazole Sodium 40 mg Tablet Delayed Release TAKE 1 TABLET BY MOUTH DAILY Synvisc One(Hylan G-F 20) 48 MG/6ML Solution Prefilled Syringe Inject Intra-articular In right knee Tresiba FlexTouch(Insulin Degludec) 100 UNIT/ML Solution Pen-injector 30 units Subcutaneous Twice Daily Taking Accu-Chek Holly Plus(Blood Glucose Monitoring Suppl) w/Device Kit as directed Taking Allopurinol 300 MG Tablet 1 tablet Orally Once a day Taking Aspirin 81(Aspirin) 81 MG Tablet Delayed Release 1 tablet Orally Once a day Taking Carvedilol 25 mg Tablet TAKE 1 TABLET BY MOUTH TWICE DAILY (7AM and 7PM) WITH FOOD Taking cloNIDine HCl 0.1 MG Tablet 1 tablet every four hours as needed Orally Q4 As neededTaking Ferrous Sulfate 325 (65 Fe) MG Tablet 1 tablet Orally Twice Daily Taking hydrALAZINE HCl 50 MG Tablet 1 tablet with food Orally Three times a day Taking Isosorbide Mononitrate ER 120 MG Tablet Extended Release 24 Hour 1 tablet Oral once daily Taking Lancets Super Thin Taking Lasix(Furosemide) 20 MG Tablet 1 tablet Orally Once a day Taking Levothyroxine Sodium 100 mcg Tablet TAKE 1 TABLET BY MOUTH IN THE MORNING ON AN EMPTY STOMACH Taking Liothyronine Sodium 5 mcg Tablet Take 1 tablet orally once daily Taking Lipitor(Atorvastatin Calcium) 80 MG Tablet 1 tablet Orally Once a day Taking Magnesium Oxide 400 MG Tablet 1 tablet Orally three times daily Taking Nitroglycerin 0.4 MG Tablet Sublingual as directed Sublingual , Notes to Pharmacist: PRNTaking NovoLOG FlexPen(Insulin Aspart) 100 UNIT/ML Solution Pen-injector 12 in morning, 16 at lunch, 22 at supper Subcutaneous Taking OneTouch Ultra 2 Taking OneTouch Ultra Blue Taking OneTouch Ultra Test test blood glucose daily Taking Pantoprazole Sodium 40 mg Tablet Delayed Release TAKE 1 TABLET BY MOUTH DAILY Taking Synvisc One(Hylan G-F 20) 48 MG/6ML Solution Prefilled Syringe Inject Intra-articular In right knee Taking Tresiba FlexTouch(Insulin Degludec) 100 UNIT/ML Solution Pen-injector 30 units Subcutaneous Twice Daily DiscontinuedCiprofloxacin HCl 500 MG Tablet 1 tablet Orally every 12 hrs dexAMETHasone 6 MG Tablet 1 tablet Orally daily Diflucan 100 MG Tablet 1 tablet Orally daily Doxycycline Monohydrate 100 MG Tablet 1 tablet Orally Once a day Macrobid(Nitrofurantoin Monohyd Macro) 100 MG Capsule 1 capsule with food Orally every 12 hrs Medication List reviewed and reconciled with the patientDiscontinued Ciprofloxacin HCl 500 MG Tablet 1 tablet Orally every 12 hrs Discontinued dexAMETHasone 6 MG Tablet 1 tablet Orally daily Discontinued Diflucan 100 MG Tablet 1 tablet Orally daily Discontinued Doxycycline Monohydrate 100 MG Tablet 1 tablet Orally Once a day Discontinued Macrobid(Nitrofurantoin Monohyd Macro) 100 MG Capsule 1 capsule with food Orally every 12 hrs Medication List reviewed and reconciled with the patient * Allergies: N orvascCarduraAugmentinBactrimno[Allergies Verified] Objective: * Vitals: W t:190.4lbs, Ht: 66 in, BP:168/62mm Hg, BMI:30.73Index, Ht-cm: 167.64 cm, Wt-k.36 kg. * Examination: G eneral Examination: GENERAL APPEARANCE: in no acute distress. EYES: EOMI. EARS: auditory canal clear, middle ear effusion noted.? NOSE: clear discharge, turbinates pale and swollen. ORAL CAVITY: mucosa moist. THROAT: no erythema, post-nasal drainage noted. NECK: neck supple, no thyromegaly. LYMPH NODES: n o cervical adenopathy. LUNGS: unlabored, clear to auscultation bilaterally. CARDIO: n o murmurs, regular rate and rhythm. ABDOMEN: bowel sounds present, no organomegaly . ? Assessment: * Assessment: 1. A cute bronchitis, unspecified organism - J20.9 (Primary) Plan: * Treatment: * Procedure Codes: * Preventive Medicine: Screenings/Counseling: B LA ACTION PLAN Above Normal BMI Follow-up D ietary management education, guidance, and counseling * Follow Up: 3 -5 days if not improving * * Sign off status: Completed Visit Status: C HK (Check Out) true * Provider: Ian Rubi ([facility])MD Date: 06/08/2025 Generated for Petar alcala/Candie/Maritza on: 06/16/2025 06:46 AM EDT History and Physical Notes * Examination Category Sub-Category Detail Notes Category Not es General Examination GENERAL APPEARANCE: in no acute di stress EYES: EOMI EARS: auditory canal clear , middle ear effusion noted NOSE: clear discharge, tur binates pale and swollen THROAT: no erythema, post-na veronica drainage noted NECK: neck supple, no thyr omegaly CARDIO: no murmurs, regular rate and rhythm LUNGS: unlabored, clear to auscultation bilaterally ABDOMEN: bowel sounds present , no organomegaly LYMPH NODES: no cervical adenopat hy ORAL CAVITY: mucosa moist
--- OUTSIDE RECORDS SUMMARY | 2025-06-08 07:36 | XMS_ITS ---
Author Organization [facility] in [place] Address [address] [place] [address] Care Team Providers Care Retail Sales Professional Name Role Phone Jeff Rubi Primary Care Provider REASON FOR VISIT rf atrovastatin Medications Medication SIG (Take, Route, Frequency, Duration) Notes Start Date End Date Status Lipitor 80 MG 1 tablet Orally Once a day for 90 days Active Encounters Encounter Location Date Provider Diagnosis [facility] [address] [place] [address] 06/08/2025 Jeff Godwinmary Plan Of Treatment Medication Medication Name Sig Start Date Stop Date Notes Lipitor 80 MG 1 tablet Orally Once a day for 90 days Progress Notes * LOBITOGarima CHOIRamiroOB:1945 (79 yo F)Acc No.[id number]:06/08/2025 Patient: Mercedez MEAD :1945 A ge:79 Y S ex:Female Address:[address] [place] [address] , [place] [address] * Refills Refill Lipitor Tablet, 80 MG, Orally, 90 Tablet, 1 tablet, Once a day, 90 days, Refills=0 * true * Date: Generated for Aayushi ng/Faneog/eTransmitting on: 0 06/16/2025 06:45 AM EDT
--- OUTSIDE RECORDS SUMMARY | 2025-06-14 10:10 | XMS_ITS | Encounter Summary ---
Author Organization [facility] Address [address] [place] [address] Care Team Providers Care Cipher Expert Name Role Phone Merrick Rubi MD Primary Care Provider [phone] Reason for Visit * Reason Comments Diabetes Thyroid Problem Hyperlipidemia Encounter Details Date Type Department Care Team (Late st Contact Info) Description 06/14/2025 10:10 AM EDT Office Visit [facility] [address] [place] [address] Lorraine Pope MD [address] [place] [address] Type 2 diabetes mellitus with hyperglycemia, with long-term 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 (HCC) (Primary Dx); Vitamin D deficiency; Microalbuminuria; Hyperlipemia, mixed ; Insulin long-term use (HCC); Primary hypertension ; Pema's disease ; Encounter for dietary consultation; Chronic renal disease, stage IV (HCC) Social History Tobacco Use Types Packs/Day Years Used Date Smoking Tobacco: Former Cigarettes Smokeless Tobacco: Never Alcohol Use Standard Drinks/Week Comments Not Asked [...] Sign Reading Time Taken Comments Blood Pressure 124/74 06/14/2025 10:11 AM EDT Pulse 68 06/14/2025 10:11 AM EDT Temperature - - Respiratory Rate 16 06/14/2025 10:11 AM EDT Oxygen Saturation 97% 06/14/2025 10:11 AM EDT Inhaled Oxygen Concentration - - Weight 86.6 kg (191 lb) 06/14/2025 10:11 AM EDT Height 163.8 cm (5' 4.5 ) 06/14/2025 10:11 AM ED T Body Mass Index 32.28 06/14/2025 10:11 AM EDT documented in this encounter Progress Notes * Lorraine Pope MD - 06/14/2025 10:10 AM EDT Mercedez Robin is a 79 y.o. female No ref. provider found presents with chief complaint of Diabetes, Thyroid Problem, and Hyperlipidemia HPI: IM 06/2025 Follow-up visit 06/14/2025 A1c in the office 7.6 blood sugar 349, she is on Humalog 12-16-22, Tresiba 30 units bid, she was on steroid shot for her knees History of Present Illness The patient is an 79-year-old female who presents for evaluation of diabetes. She has been managing her blood glucose levels through a regimen of , novolog administered at 12 units during breakfast, 16 units at lunch, and 22 units at dinner. Additionally, she takes 30 units oflong-acting insulin twice daily. She reports that her [...] hypoglycemia, blood sugar 250, a1c 7.4. She yue Levemir 40 am and 40 qhs twice a day, NovoLog 10-12-15 units tid plus ISS#2, meter 0-17-83%, ofs500. lab on 01/2024 GFR 23, LDL 69, [...] said last GFR around 30 with her lead data architect. Interim History: 03/2023 Follow-up visit on 03/12/2023 for type 2 diabetes, A1c in the office 7.1 , blood sugar 212. She is onLevemir 50 am and 50 qhs twice a [...] office 6.6, blood sugar 268. She is onLevemir 50 am and 50 qhs twice a day, NovoLog 12-18-22 units tid, had CABG in 12/2020 .meter 159-234, AVG 200 . GFR 29 on 01/2022 Interim History: 11/2021 Follow-up visit on 11/28/2021 for type 2 diabetes, A1c in the office 7.3, blood sugar 230. She is onLevemir 50 am and 50 qhs twice a [...] the office 7.1, blood sugar 376. Meter [id number], highest 233, average 1.1, average 169. She [...] in the office 7.5. Meter lowest 100, [id number] while she is on prednisone, average 1.2 and average 214. At last visit, we started her Tradjenta but she was unable to afford it and so she is still on Lantus and trying to cut back to 40 twice aday and NovoLog 10-12 every meal. She is still on levothyroxine 150 mcg daily. Interim History 08/25: Followup visit on 08/24/2019, for type 2 diabetes. A1c in the office 8.2. Blood sugars 546. Meter'slowest 157, highest 301. She is on Levemir [...] the morning. She is on Levemir 40 twicea day. Humalog averages 8-12 units three to four times a day, and she states GFR is 30, per her lead data architect. Interim History: 08/24 Followup visit on 08/25/18 [...] reading of her . Lab done in [facility] BUN 28/creatinine 1.43, GFR 36, total cholesterol 188, triglycerides 323, LDL 76, SDL 48, TSH 0.606, free T4 1.5 [0.78-2.19], albumin/creatinine 161, TPO less than 6, thyroglobulin antibody les s than 1. She is on Levemir 40 [...] MG capsule 1 capsule, Every 12 hours icmnwilcqtay-xtie-gcapcjkc-folic acid (Centrum) chewable tablet 1 tablet, Daily [...] Basal cell carcinoma CAD (coronary artery disease) Chronic kidney disease, stage III (moderate) ([facility]-HCC) Current use of insulin (HCC) Diabetes (HCC) Frozen shoulder GERD (gastroesophageal reflux disease) Gout Pema's disease HLD (hyperlipidemia) HTN (hypertension) Hypoglycemia Hypothyroidism Obesity with body mass index (BMI) of 30.0 to 39.9 Squamous cell skin cancer Thyroid disease Type 2 diabetes mellitus with other diabetic kidney complication (HCC) Vitamin D deficiency Past Surgical History: Procedure [...] recent change. No heart burn, liver or gallbladderdisease; no rectal bleeding or pain : No urinary pain , frequency or odor. MUSCULOSKELETAL: No muscle pain or cramps; no extremity weakness.No joint pain, stiffness, swellingor limitation of movement NEUROLOGY: No H/O seizures, stroke or fainting. No weakness, tremors. Hematology: No bleeding problems or excessive bruising ENDOCRINE: No increase in hunger, thirst or urination; admits compliance to medical management plan Feet: numbness tingling yes , ulcers or skin break no Lab Results Component Value Date HGBA1C 7.6 06/14/2025 HGBA1C 6.6 02/15/2025 HGBA1C 7.0 11/16/2024 Lab Results Component Value Date GLU 349 06/14/2025 GLU 238 02/15/2025 GLU 220 11/16/2024 04/12/2020 12:00 PM 04/15/2020 12:00 PM 03/13/2022 12:00 PM 03/16/2024 9:19 AM 11/16/2024 9:49 AM 02/15/2025 9:51 AM 06/14/2025 10:11 AM Vitals BMI 32.28 kg/m2 32.28 kg/m2 29.38 kg/m2 30.53 kg/m2 31 kg/m2 32.28 kg/m2 BSA (m2) 2.06 m2 2.06 m2 1.96 m2 2.02 m2 2.04 m2 1.99 m2 Systolic 169 130 130 132 124 Diastolic 79 70 80 62 74 Heart Rate 63 62 63 68 SpO2 97 % 97 % 97 % 97 % Resp 16 16 16 16 Height (in) 5' 6 5' 6 5' 6 5' 6.5 5' 6.5 5' 4.5 Weight (lb) 200 182 192 195 191 Visit Report Report Report Report Report ASSESSMENT AND PLAN: Assessment/Plan Diagnoses and all orders for this visit: Type 2 diabetes mellitus with hyperglycemia, with long-term 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 (HCC) - POCT glucose manually resulted - POCT glycosylated hemoglobin (Hb A1C) docked device Tresiba 30 units twice a day, Humalog 09/21/2022 according to meal size, we will add sliding scale 2. , instruction given. Vitamin D deficiency Microalbuminuria Hyperlipemia, mixed Insulin long-term use (HCC) Primary hypertension Pema's disease Encounter for dietary consultation Chronic renal disease, stage IV ([facility]) Follow up in about 3 months (around 09/13/2025). documented in this encounter Plan of Treatment Upcoming Encounters Date Type Department Care Team (Late st Contact Info) Description 09/13/2025 10:50 AM EST Office Visit [facility] [address] [place] [address] Lorraine Pope MD [address] [place] [address] 03/23/2026 10:00 AM EDT Office Visit [facility] [address] [place] [phone] Lavonne Longoria MD [address] [place] [address] documented as of this encounter Procedures Procedure Name Priority Date/Time Associated Diagnosis Comments POCT GLYCOSYLATED HEMOGLOBIN (HGB A1C) Routine 06/14/2025 10:15 AM EDT Type 2 diabetes mellitus with hyperglycemia, with long-term 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 (HCC) POCT GLUCOSE Routine 06/14/2025 10:15 AM EDT Type 2 diabetes mellitus with hyperglycemia, with long-term 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 (HCC) documented in this encounter Results * POCT glycosylated hemoglobin (Hb A1C) docked device (06/14/2025 10:15 AM EDT) Hemoglobin A1C 7.6 Blood Venous blood specimen / Unknown 06/14/2025 10:15 AM EDT us Lorraine Pope MD POINT OF CARE TEST ENTER/EDIT ORDERABLES Final Result * POCT glucose manually resulted (06/14/2025 10:15 AM EDT) Glucose Blood, POC 349 mg/dL Blood Capillary blood specimen / Unknown 06/14/2025 10:15 AM EDT us Lorraine Pope MD POINT OF CARE TEST ENTER/EDIT ORDERABLES Final Result documented in this encounter Visit Diagnoses Diagnosis Type 2 diabetes mellitus with hyperglycemia, with long-term 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 (HCC)- Primary Vitamin D deficiency Microalbuminuria Proteinuria Hyperlipemia, mixed Mixed hyperlipidemia Insulin long-term use (HCC) Encounter for long-term (current) use of insulin Primary hypertension Unspecified essential hypertension Pema's disease Chronic lymphocytic thyroiditis Encounter for dietary consultation Chronic renal disease, stage IV (HCC) Chronic kidney disease, Stage IV (severe) documented in this encounter Care Teams Cipher Expert Relationship Specialty Start Date End Date Merrick Rubi MD PCP - General Family Medicine 10/22/23 documented as of this encounter
--- OUTSIDE RECORDS SUMMARY | 2025-06-16 06:45 | XMS_ITS | Encounter Summary ---
Author Organization [facility] tem Address [id number] [address] [place] [address] Care Team Providers Care Brain Wave Technician Name Role Phone Merrick Rubi MD Primary Care Provider [phone] Reason for Visit * Reason Onset Date Comments Results 01/17/2021 Encounter Details Date Type Department Care Team (Late st Contact Info) Description 01/17/2021 Telephone [facility] [address] [place] [address] Linda Gonzalez, JUANPABLO Results Social [...] often do you attend chur ch or taoism services? More than 4 times per year 12/28/2020 Do you belong to any clubs o r organizations such as presybeterian groups, unions, fraternal or athletic groups, or [...] Answer Date Recorded Total Score 0 12/28/2020 [facility] Occupat ional Health - Occupational [...] Recorded Do you need help finding a [facility] career center and/or a training [...] - 146 mmol/L 01/30/2021 2:48 PM EDT [facility] Potassium, Bld 4.2 3.5 - 5.0 mmol/L 01/30/2021 2:48 PM EDT [facility] Chloride 98 98 - 109 mmol/L 01/30/2021 2:48 PM EDT [facility] CO2 24 22 - 32 mmol/L 01/30/2021 2:48 PM EDT [facility] Anion gap 13 5 - 15 mmol/L 01/30/2021 2:48 PM EDT [facility] BUN 53(H) 5 - 27 mg/dL 01/30/2021 2:48 PM EDT [facility] Creatinine 1.90(H) 0.40 - 1.00 mg/dL 01/30/2021 2:48 PM EDT [facility] Comment:METHOD TRACEABLE TO IDMS STANDARD Glucose 222(H) 65 - 99 mg/dL 01/30/2021 2:48 PM EDT [facility] Calcium 9.7 8.5 - 10.5 mg/dL 01/30/2021 2:48 PM EDT [facility] GFR MDRD Non Af Amer 26(L) >59 ml/min/1.7 3sq.m 01/30/2021 2:48 PM EDT [facility] GFR MDRD Af Amer 31(L) >59 ml/min/1.7 3sq.m 01/30/2021 2:48 PM EDT [facility] Serum / Unknown 01/30/2021 8 :27 AM EDT 01/30/2021 8:28 AM EDT us Marie Garcia SAP SPECIALIST-SPECIALIST FIELD ENGINEER LAB BLOOD ORDERABLES Final Result [facility] [address], [address] [place] [address] documented in this encounter Visit Diagnoses Diagnosis Paroxysmal atrial fibrillation ([facility]-HCC)- Primary Atrial fibrillation Unstable angina (CMS-HCC) Intermediate coronary syndrome documented in this encounter Additional Health Concerns Assessment Noted Time PHQ-9 Depression Total Score: 0 12/29/19 21 3:16 PM EDT documented as of this encounter Care Teams Brain Wave Technician Relationship Specialty Start Date End Date Merrick Rubi MD PCP - General Family Medicine 10/20/20 documented as of this encounter
--- OUTSIDE RECORDS SUMMARY | 2025-06-16 06:46 | XMS_ITS | Encounter Summary ---
Author Organization [facility] tem Address [id number] [address] [place] [address] Care Team Providers Care Litigation Specialist Name Role Phone Merrick Rubi MD Primary Care Provider [phone] Reason for Visit * Reason Onset Date Comments STAFF MESSAGE 01/03/2021 Encounter Details Date Type Department Care Team (Late st Contact Info) Description 01/03/2021 Telephone [facility] [address] [place] [phone] Fátima Hernandez MD [address] [place] [address] STAFF MESSAGE Social History Tobacco [...] often do you attend chur ch or confucianism services? More than 4 times per year [...] Answer Date Recorded Total Score 0 12/28/2020 [facility] Occupat ional Health - [...] you need help finding a [facility] career center and/or a training program? [...] documented as of this encounter Care Teams Litigation Specialist Relationship Specialty Start Date End Date Merrick Rubi MD PCP - General Family Medicine 10/20/20 documented as of this encounter
--- OUTSIDE RECORDS SUMMARY | 2025-06-16 06:46 | XMS_ITS | Clinical Summary ---
Author Organization [facility] Address [address] [place] [address] Care Team Providers Care Police Communications Operator Name Role Phone Merrick Rubi MD Primary Care Provider [phone] Allergies Active Allergy Reactions Criticality Noted Date Comments Amlodipine Other,Rash,Unknown High 03/28/2005 NORVASC Amoxicillin-Pot Clavulanate Other,Rash,Unknown Low 11/23/2020 AUGMENTIN Doxazosin Other 11/23/2020 Iodinated Contrast Media Other 11/23/2020 Sulfamethoxazole Other 03/12/2023 Sulfamethoxazole-Trimethoprim Hives,Othe r,Rash,Unkn own Low 08/04/2015 BACTRIM Medications aspirin 81 mg EC tablet Take 81 mg by mouth in the morning. 01/12/20 21 Active magnesium oxide (Mag-Ox) 400 mg (241.3 mg magnesium) tablet Take 1 tablet by mouth in the morning, afternoon, and at bedtime. 12/21/19 24 Active carvedilol (Coreg) 25 mg tablet Take 25 mg by mouth with breakfast and with evening meal. 01/17/20 24 Active levothyroxine (Synthroid, Levoxyl) 125 mcg tablet TAKE 1 TABLET BY MOUTH EVERY MORNING ON AN EMPTY STOMACH 12/21/19 24 Active pantoprazole (ProtoNix) 40 mg EC tablet Take 1 tablet by mouth in the morning. Active liothyronine (Cytomel) 5 mcg tablet Take 10 mcg by mouth in the morning. 12/06/19 22 Active ferrous sulfate 325 (65 Fe) MG tablet Take 1 tablet by mouth 2 times daily. Active cloNIDine (Catapres) 0.1 mg tablet Take 0.1 mg by mouth if needed each day for high blood pressure. 01/01/20 24 Active atorvastatin (Lipitor) 80 mg tablet Take 80 mg by mouth at bedtime. 12/25/19 24 Active furosemide (Lasix) 20 mg tablet Take 50 mg by mouth in the morning. Patient is taking 50 mg 1 x per day 12/25/19 24 Active allopurinol (Zyloprim) 300 mg tablet Take 100 tablets by mouth in the morning. Active NovoLOG Flexpen U-100 Insulin 100 unit/mL (3 mL) injection pen INJECT 12 UNITS SUBCUTANEOUSLY IN THE MORNING, 16 UNITS at lunch, and 22 UNITS at dinner 06/06/20 23 Active insulin detemir (Levemir FlexPen) 100 unit/mL (3 mL) injection pen INJECT 50 UNITS SUBCUTANEOUSLY (under the skin) TWICE DAILY 06/15/20 15 Active nitroglycerin (Nitrostat) 0.[address] 1 tablet as needed by sublingual route as directed. 01/27/20 24 Active hydrALAZINE (Apresoline) 10 mg tabletIndication s: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 270 tablet 3 02/10/20 24 Active insulin degludec (Tresiba FlexTouch U-100) 100 unit/mL (3 mL) injection Inject under the skin at bedtime. Active hydrALAZINE (Apresoline) 25 mg tabletIndication s:Benign hypertensive heart disease with heart failure (CMS/HCC) Take 1 tablet (25 mg) by mouth three times daily. 270 tablet 3 05/11/20 24 Active Additional Information Patient not taking.Reported on 02/25/2025 isosorbide mononitrate ER (Imdur) 120 mg 24 hr tablet Take 120 mg by mouth in the morning. Do not crush or chew. Active hydrALAZINE (Apresoline) 50 mg tabletIndication s:Benign hypertensive heart disease with heart failure (CMS/HCC) Take 1 tablet (50 mg) by mouth three times daily. 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 01/30/2016 02/10/2024 Acquired hypothyroidism 08/04/2015 02/10/20 Social History Tobacco Use Types Packs/Day Years [...] Physically or Sexually Abused Not on file Comments Unknown Sex and Gender Information Value Date Recorded Sex Assigned at Not on file Legal Sex Female 10:24 PM EDT Gender Identity Not on file [...] Risk Screening 2009 COVID-19 Vaccine ( season) 2025 01/24/2021, 12/13/2020 Influenza Vaccine (#1) 2025 , 07/22/2019, 07/20/2019, Additional history exists Pneumococcal Vaccine: 50+ Years Completed 07/15/2017, 08/08/2012, 08/09/2003 HIB Vaccines [...] on patient's age to complete this topic Insurance [employer] MEDICARE ADVANTAGE Care Teams Police Communications Operator Relationship Specialty Start Date End Date Merrick Rubi MD [address] [place] [address] PCP - General 01/22/24
--- OUTSIDE RECORDS SUMMARY | 2025-06-16 06:46 | XMS_ITS | Encounter Summary ---
Author Organization [facility] Address [id number] [address] [place] [address] Care Team Providers Care Scrap Charger Name Role Phone Merrick Rubi MD Primary Care Provider [phone] Encounter Details Date Type Department Care Team (Late st Contact Info) Description 01/12/2021 Orders Only [facility] [address] [phone] External, Scanning Provider Social History Tobacco Use [...] often do you attend chur ch or sabianist services? More than 4 times per year 12/28/2020 Do you belong to any clubs o r organizations such as quaker groups, unions, fraternal or athletic groups, or [...] Answer Date Recorded Total Score 0 12/28/2020 [facility] of Occupat ional Health - Occupational Stress [...] documented as of this encounter Care Teams Scrap Charger Relationship Specialty Start Date End Date Merrick Rubi MD PCP - General Family Medicine 10/20/20 documented as of this encounter
--- OUTSIDE RECORDS SUMMARY | 2025-06-16 06:46 | XMS_ITS | Clinical Summary ---
Author Organization [facility] Address [address], [address] [place] [address] Care Team Providers Care Older Adult Social Work Specialist Name Role Phone Merrick Rubi MD Primary Care Provider [phone] Allergies Active Allergy Reactions Criticality Noted Date [...] mouth daily Active Multiple Vitamins-Minera ls (THERAPEUTIC MULTIVITAMIN-VT NERALS) tablet Take 1 tablet by mouth [...] of Treatment Not on file Insurance MEDICARE [facility] Advance Directives * Full Code (Latest Code Status on File) Date Activated Date Inactivated Comments 01/30/2016 1:33 PM 01/30/2016 4:23 PM * Full Code Date Activated Date Inactivated Comments 01/30/2016 12:27 PM 01/30/2016 1:33 PM Care Teams Older Adult Social Work Specialist Relationship Specialty Start Date End Date Merrick Rubi MD [address] [place] [address] PCP - General 01/17/16
--- OUTSIDE RECORDS SUMMARY | 2025-06-16 06:46 | XMS_ITS | Encounter Summary ---
Author Organization [facility] Address [id number] [address] [place] [address] Care Team Providers Care Towel Distributor Name Role Phone Merrick Rubi MD Primary Care Provider [phone] Encounter Details Date Type Department Care Team (Late st Contact Info) Description 01/10/2022 Orders Only [facility] [address] [place] [phone] External, Scanning Provider Social History Tobacco Use [...] often do you attend chur ch or advent services? More than 4 times per year 12/28/2020 Do you belong to any clubs o r organizations such as roman catholic groups, unions, fraternal or athletic groups, [...] Answer Date Recorded Total Score 0 12/28/2020 [facility] Occupat ional Health - [...] Multiple labs (11/01/2021) us Scanning Provider External [facility] Final Result Performing Organization Address City/[facility]/ZIP Co de Phone Number MANUALLY TRANSCRIBED RESULTS documented in this encounter Visit Diagnoses Not on filedocumented in this encounter Additional Health Concerns Assessment Noted Time PHQ-9 Depression Total Score: 0 12/29/19 21 3:16 PM EDT documented as of this encounter Care Teams Towel Distributor Relationship Specialty Start Date End Date Merrick Rubi MD PCP - General Family Medicine 10/20/20 documented as of this encounter
--- OUTSIDE RECORDS SUMMARY | 2025-06-16 06:46 | XMS_ITS | Encounter Summary ---
Author Organization [facility] Address [id number] [address] [place] [address] Care Team Providers Care Communications Maintainer Name Role Phone Merrick Rubi MD Primary Care Provider [phone] Reason for Visit * Reason Onset Date Comments Status Post Cath 12/29/2020 Encounter Details Date Type Department Care Team (Late st Contact Info) Description 12/29/2020 Telephone [facility] [address] [place] [phone] Kassie [place] MD [address] [place], [place] [phone] Status Post Cath Social History Tobacco Use [...] How often do you attend chur or mandaen services? More than 4 times per year 12/28/2020 Do you belong to any clubs o r organizations such as advent groups, unions, fraternal [...] Answer Date Recorded Total Score 0 12/28/2020 [facility] of Occupat ional Health - [...] Recorded Do you need help finding a [facility] career center and/or a training program? [...] list: Pt had cath w/ [facility] @ [facility] where pt is currently admitted. Will [...] documented as of this encounter Care Teams Communications Maintainer Relationship Specialty Start Date End Date Merrick Rubi MD PCP - General Family Medicine 10/20/20 documented as of this encounter
--- OUTSIDE RECORDS SUMMARY | 2025-06-16 06:46 | XMS_ITS | Encounter Summary ---
Author Organization [facility] Address [address] [place] [address], [address] [place] [address] Care Team Providers Care Plant Cytologist Name Role Phone Merrick Rubi MD Primary Care Provider [phone] Encounter Details Date Type Department Care Team (Late st Contact Info) Description 01/31/2016 Post-op Telephone [facility] General Surgery [address] [place], [place] [id number] Maryam Amador RN Social History Tobacco Use [...] on filedocumented in this encounter Care Teams Plant Cytologist Relationship Specialty Start Date End Date Merrick Rubi MD [address] [place] [address] PCP - General 01/17/16 documented as of this encounter
--- OUTSIDE RECORDS SUMMARY | 2025-06-16 06:46 | XMS_ITS | Clinical Summary ---
Author Organization [facility] Healthcare Address [address] [place] [address] Care Team Providers Care Oncology Coordinator Name Role Phone Merrick Rubi MD Primary Care Provider [phone] Allergies Active Allergy Reactions Criticality Noted Date [...] Encounters Date Type Department Care Team Description 06/14/2025 10:10 AM EDT Office Visit [facility] [address] [place] [phone] Lorraine Pope MD Type 2 diabetes mellitus with hyperglycemia, with long-term 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 (HCC) (Primary Dx); Vitamin D deficiency; Microalbuminuria; Hyperlipemia, mixed ; Insulin long-term use (HCC); Primary hypertension ; Pema's disease ; Encounter for dietary consultation; Chronic renal disease, stage IV (HCC) 06/14/2025 Bamboo flowsheet [facility] [address] [place] [address] Lorraine oPpe MD 03/23/2025 2:30 PM EDT Office Visit [facility] [address] [place] [address] Lavonne Longoria MD Seborrheic keratosis (Primary Dx); Seborrheic keratosis, inflamed; Solar purpura; Lentigines 03/23/2025 Bamboo flowsheet [facility] [address] [place] [phone] Lavonne Longoria MD 03/23/2025 Travel from Last 3 Months Immunizations Immunization Administration [...] Mass Index 32.28 06/14/2025 10:11 AM EDT Plan of Treatment Upcoming Encounters Date Type Department Care Team (Late st Contact Info) Description 09/13/2025 10:50 AM EST Office Visit [facility] [address] [place] [address] Lorraine Pope MD [address] [place] [address] 03/23/2026 10:00 AM EDT Office Visit [facility] [address] [place] [phone] Lavonne Longoria MD [address] [place] [address] Health Maintenance Due Date Last Done Comments Influenza Vaccine (#1) 2025 3, 07/10/2022, 07/18/2020, Additional history exists Pneumococcal Vaccine: 65+ Years Completed 07/15/2017, 08/08/2012, 08/09/2003 Procedures Procedure Name Priority Date/Time Associated Diagnosis Comments POCT GLYCOSYLATED HEMOGLOBIN (HGB A1C) Routine 06/14/2025 10:15 AM EDT Type 2 diabetes mellitus with hyperglycemia, with long-term 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 (HCC) POCT GLUCOSE Routine 06/14/2025 10:15 AM EDT Type 2 diabetes mellitus with hyperglycemia, with long-term 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 (HCC) CRYOTHERAPY SKIN LESION Routine 03/23/2025 2:33 PM EDT Seborrheic keratosis, inflamed from Last 3 Months Results * POCT glycosylated hemoglobin (Hb A1C) docked device (06/14/2025 10:15 AM EDT) Hemoglobin A1C 7.6 Blood Venous blood specimen / Unknown 06/14/2025 10:15 AM EDT Lorraine Pope MD POINT OF CARE TEST ENTER/EDIT ORDERABLES Final Result * POCT glucose manually resulted (06/14/2025 10:15 AM EDT) Glucose Blood, POC 349 mg/dL Blood Capillary blood specimen / Unknown 06/14/2025 10:15 AM EDT Lorraine Pope MD POINT OF CARE TEST ENTER/EDIT ORDERABLES Final Result * Cryotherapy, skin lesion (03/23/2025 2:33 PM EDT) Lavonne Longoria MD DERM PROCEDURE ORDERABLES Fin al Result from Last 3 Months Insurance [facility] MEDICARE ADVANTAGE Care Teams Oncology Coordinator Relationship Specialty Start Date End Date Merrick Rubi MD PCP - General Family Medicine 10/22/23
--- OUTSIDE RECORDS SUMMARY | 2025-06-16 06:46 | XMS_ITS | Encounter Summary ---
Author Organization [facility] Address [address] [place] [address] Care Team Providers Care Bus Matron Name Role Phone Merrick Rubi MD Primary Care Provider [phone] Encounter Details Date Type Department Care Team (Late st Contact Info) Description 06/14/2025 Bamboo flowsheet [facility] [id number] [place] [address] Lorraine Pope MD [address] [place] [address] Social History Tobacco Use Types Packs/Day Years [...] as of this encounter Plan of Treatment Upcoming Encounters Date Type Department Care Team (Late st Contact Info) Description 09/13/2025 10:50 AM EST Office Visit [facility] [email or web address] [place] [phone] Lorraine Pope MD [address] [place] [address] 03/23/2026 10:00 AM EDT Office Visit [facility] [address] [place] [phone] Lavonne Longoria MD [address] [place] [address] documented as of this encounter Visit Diagnoses Not on filedocumented in this encounter Care Teams Bus Matron Relationship Specialty Start Date End Date Merrick Rubi MD PCP - General Family Medicine 10/22/23 documented as of this encounter
--- OUTSIDE RECORDS SUMMARY | 2025-06-16 06:46 | XMS_ITS | Encounter Summary ---
Author Organization [facility] Address [id number] [address] [place] [address] Care Team Providers Care Traffic Representative Name Role Phone Merrick Rubi MD Primary Care Provider [phone] Encounter Details Date Type Department Care Team (Late st Contact Info) Description 12/16/2020 Orders Only [facility] [address] [place] [phone] External, Scanning Provider Social History Tobacco Use [...] on filedocumented in this encounter Care Teams Traffic Representative Relationship Specialty Start Date End Date Merrick Rubi MD PCP - General Family Medicine 10/20/20 documented as of this encounter
--- OUTSIDE RECORDS SUMMARY | 2025-06-16 06:46 | XMS_ITS | Encounter Summary ---
Author Organization [facility] Address [facility] [id number] [address] [place] [address] Care Team Providers Care Atmospheric Sciences Professor Name Role Phone Merrick Rubi MD Primary Care Provider [phone] Encounter Details Date Type Department Care Team (Late st Contact Info) Description 07/08/2023 Orders Only [facility] [address] [place] [phone] External, Scanning Provider Social History Tobacco Use [...] often do you attend chur ch or scientologist services? More than 4 times per year 12/28/2020 Do you belong to any clubs o r organizations such as spiritism groups, unions, fraternal or athletic groups, or [...] Answer Date Recorded Total Score 0 12/28/2020 [facility] [...] Recorded Do you need help finding a [facility] career center and/or a training program? [...] <enter goal here> General Yes [place], [place], CLIENT SOLUTIONS SPECIALIST Note: Evaluation of progress towards goal: return home with homecare and support from [facility], children and grandchildren documented as of this encounter Procedures Procedure Name Priority Date/Time Associated Diagnosis Comments MULTIPLE LABS Routine 07/08/2023 LIPID PROFILE Routine 07/08/2023 documented in this encounter Results * Multiple labs (07/08/2023) us Scanning Provider External CO IMAGING Edite d Result - Final Performing Organization Address [facility] Co de Phone Number [...] Edited Result - Final Performing Organization Address [facility] Co de Phone Number MANUALLY TRANSCRIBED RESULTS documented in this encounter Visit Diagnoses Not on filedocumented in this encounter Additional Health Concerns Assessment Noted Time PHQ-9 Depression Total Score: 0 12/29/19 21 3:16 PM EDT documented as of this encounter Care Teams Atmospheric Sciences Professor Relationship Specialty Start Date End Date Merrick Rubi MD PCP - General Family Medicine 10/20/20 documented as of this encounter
--- OUTSIDE RECORDS SUMMARY | 2025-06-16 06:46 | XMS_ITS | CCD ---
Author Organization [facility] Care Team Providers [facility] Director Name Role Phone PHYSICIAN, DEFAULT Unavailable Unavailable [...] Unavailable Dhruv Rubi MD Primary Care Provider Dhruv Rubi MD Primary Care Provider Dhruv Rubi MD Primary Care Provider Dhruv Rbui MD Primary Care Provider STEFANO CATHERINE Attending Unavailable ALEJANDRO ORTIZ Attending Unavailable STEFANO CATHERINE Attending Unavailable Dhruv Rubi MD Primary Care Provider Dhruv Rubi MD Primary Care Provider Dmitriy Lynne MD Attending Provider Dhruv Rubi MD Attending Provider Dmitriy Lynne Admitting Unavailable Dmitriy Lynne Attending Unavailable Dhruv Rubi Primary Care Unavailable Dhruv Rubi Attending Unavailable Dhruv Rubi Admitting Unavailable LORRAINE MAYER F Attending Unavailable LORRAINE MAYER Attending Unavailable GA LAI Attending Unavailable LORRAINE MAYER F Attending Unavailable LORRAINE MAYER F Referring Unavailable TOBIASGREG ARRIAZA Attending Unavailable LORRAINE MAYER Attending Unavailable GA LAI Attending Unavailable Allergies Allergy Classification Reported Allergen(s) Allergy Type Date of Onset Reaction(s) Facility (20 sources) amLODIPine; Translations: [AMLODIPINE] Drug Allergy 03-28-20 05 Unknown, [facility] Repository (20 sources) Amoxicillin / Clavulanate Drug Allergy 11-23-19 [facility] Other (20 sources) Contrast media Propensity to adverse reactions Unknown [employer] [facility] Other (2 sources) Doxazosin; Translations: [doxazosin] Drug Allergy Unknown [facility] Other (20 sources) Sulfamethoxazole / Trimethoprim Drug Allergy 11-23-19 [facility] Other (20 sources) Doxazosin; Translations: [DOXAZOSIN] Drug Allergy 11-23-19 Unknown, [facility] Repository (9 sources) Amoxicillin / Clavulanate; Translations: [Augmentin] Drug Allergy 11-16-19 16 Unknown [facility] Repository (1 source) amLODIPine Drug Allergy 04-25-20 14 [facility] Repository (1 source) Sulfamethoxazole / Trimethoprim Drug Allergy 03-09-20 13 [facility] Repository (2 sources) Sulfamethoxazole / [...] (20 sources) Amoxicillin Drug Allergy 03-12-20 Unknown [facility] Healthcare (20 sources) Doxazosin Drug Allergy 03-12-20 Unknown [facility] (20 sources) Sulfamethoxazole; Translations: [SULFAMETHOXAZOLE] Allergy to substance 03-12-20 Unknown [facility] (20 sources) Trimethoprim Drug Allergy 03-12-20 Unknown [facility] (4 sources) Clavulanate; Translations: [clavulanic acid] Drug Allergy 01-15-20 Unknown Reaction [facility] (1 source) amLODIPine Drug Allergy 01-15-20 [facility] Repository (1 source) Amoxicillin Drug Allergy 01-15-20 [facility] Repository (1 source) Doxazosin Drug Allergy 01-15-20 [facility] Repository (1 source) Sulfamethoxazole Drug Allergy 01-15-20 [facility] Repository (1 source) Trimethoprim Drug Allergy 01-15-20 [facility] Repository Medications Current Medications Medication [...] coronary artery bypass graft , 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 , Paroxysmal atrial [...] (LIPITOR) 80 mg tablet Indications: 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 Do not crush, chew, or split. Active docusate sodium 50 mg / sennosides, half-way 8.6 mg oral tablet (5 sources) take 1 tablet by mouth every twelve hours Sennosides-Docusate Sodium 8.6-50 MG 1 tablet in the evening as needed Orally every 12 hours Active epoetin johnna-epbx 19732 UNT/ML Injectable Solution [Retacrit] (14 sources) Retacrit 64047 U NIT/ML as directed Injection Active ferrous sulfate 325 mg oral tablet (20 sources) Start: 06-15-2024 take 1 tablet by enzo th twice daily Start: 10-09-2019 End: 12-04-2023 take 1 tablet by mouth once daily Ferrous Sulfate 325 mg (65 mg iron) Tablet Discontinued 325 MG PO Daily October 09, 2019 1:00am December 04, 2023 9:54am take 1 tablet by ezno twice daily take 1 tablet by enzo twice daily Ferrous Sulfate 325 (65 Fe) MG 1 tablet Orally bid for 90 day(s) Active hydrALAZINE hydrochloride 50 mg oral tablet (6 sources) Arteriolar Vasodilator Start: 01-14-2025 take 1 [...] ml insulin degludec 100 unt/ml pen injector (2 sources) Insulin Analog Start: 01-14-2025 Insulin Degludec (Tresiba Flextouch U-100) 100 unit/mL (3 mL) insulin pen (1 source) Start: 01-14-2025 Insulin Deglud ec (Tresiba Flextouch U-100) 100 unit/mL (3 mL) insulin pen Active 30 UNIT SUBCUT Twice daily January 14, 2025 12:00am 24 hr isosorbide mononitrate 120 mg extended release oral tablet (13 sources) Nitrate Vasodilator Start: 06-15-2024 take 1 [...] 2023 9:51am take 2 tablets by mo [facility] before mealtime levothyroxine (Synthroid, Levoxyl) 150 [...] ( ) take 2 tablets by mo [facility] every twenty-four hours Liothyronine Sodium 5 MCG 2 tablets on an empty stomach Orally Once a day Active take 2 tablets by mo [facility] every twenty-four hours lisinopril 20 mg [...] Orally Once a day for 90 day(s) 14 Apr, 2022 Active Start: 01-15-2022 End: 01-17-2024 take 1 [...] For Her 50 + - Orally Active tibbedboxrwq-fnup-qmqzsvfe-f olic acid (Centrum) chewable tablet (20 sources) multivitamin-iro f-kllijogs-rmymb acid (Centrum) chewable tablet Chew 1 tablet Daily Active multivitamin-iro q-ewdxwzvm-cvens acid (Centrum) chewable tablet Chew 1 tablet in the morning. Active nitroglycerin 0.4 mg sublingual tablet (6 sources) Nitrate Vasodilator Start: 10-09-2019 End: 06-15-2024 [...] ranolazine 500 mg extended release oral tablet (18 sources) Anti-ang inal take 1 tablet by mouth every twelve hours in the morning ranolazine (Ranexa) 500 MG 12 hr tablet Take 1 tablet by mouth in the morning and 1 tablet before bedtime. Do not crush, chew, or split. Active retacrit 29807 unit/ml solution (5 sources) Retacrit 34876 U NIT/ML as directed Injection Active Sennosides-Docusate [...] (Original) alendronic acid 70 mg oral tablet (20 sources) Bisphosphonate Start: 10-09-2019 End: 12-04-2023 take [...] calcium carbonate 1250 mg or al tablet (5 sources) Start: 10-09-2019 End: 06-15-2024 Calcium Carbonate [...] L Take by mouth daily. 0 Active Ejehdlxfkvss-Uvhy-Svdxd Acid (Centrum) 18-400 mg-mcg Tablet (3 sources) Start: 10-09-2019 End: 06-15-2024 take 1 tablet by mouth once daily Anubvjecbhlc-Oztc-Jpiso Acid (Centrum) 18-400 mg-mcg Tablet Discontinued 1 [...] / nitrofurantoin, monohydrate 75 mg oral capsule (2 sources) Nitrofuran Antibacterial Start: 09-10-2024 End: 09-10-2024 take [...] 1000 mL simvastatin 80 mg oral tablet (3 sources) HMG-CoA Reductase Inhibitor Start: 10-09-2019 End: 12-04-2023 take 1 tablet by mouth once daily at bedtime Simvastatin 80 mg tablet Discontinued 80 MG PO Daily at bedtime October 09, 2019 1:00am December 04, 2023 9:46am Problems Active Problems Problem Classification Problem Date Documented Date Episodic/Chronic Acute bronchitis (4 sources) Acute bronchitis, unspecified; Translations: [ACUTE BRONCHITIS UNSPECIFIED] Onset: Episodic Administrative/socia l admission (10 sources) Patient encounter status; Translations: [Dietary counseling [...] angina pectoris; Translations: [Atherosclerotic heart disease of kaibab coronary artery without angina pectoris] Onset: 1 [...] Hyperkalemia Episodic Genitourinary symptoms and ill-defined conditions (13 sources) Dysuria; Translations: [Microalbuminuria] Onset: 2 07-13-2024 [...] Translations: [Tinea unguium] 06-25-2024 Episodic Nutritional deficiencies (8 sources) Vitamin D deficiency; Translations: [Vitamin D deficiency, unspecified] 07-13-2024 Chronic Osteoarthritis (9 sources) Arthritis; Translations: [Unspecified osteoarthritis, unspecified site] 11-23-2020 Chronic Other aftercare (8 sources) Long-term 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; Translations: [assisted (current) use of insulin] 07-13-2024 Episodic Other [...] hyperpigmentation] 03-23-2025 Episodic Peripheral and visceral atherosclerosis (3 sources) Peripheral vascular disease, unspecified; Translations: [Peripheral [...] Translations: [Localized edema] 12-21-2023 Episodic Thyroid disorders (8 sources) Pema thyroiditis; Translations: [Autoimmune thyroiditis] 07-13-2024 [...] Value Interpretation Reference Range Facility Glucose (Bld) [Mass/Vol]on 0 06-14-2025 Glucose Blood, POC 349 mg/dL [facility] Laboratory - Hematology and Cell countson 06-14-2025 HbA1c (Bld) [Mass fraction] 7.6 % [facility] No Panel Informationon 06-14 [facility] Urine Cultureon 05-25-2025 Bacteria identified Cx Nom (U) ORGANISM: Escherichia coli (ESBL) (O:ESCCOLESBL) [place] Count >100,000 Aerobic AIDEN Charge (NMIC56) ------ [...] RESISTANT TO ALL B-LACTAM DRUGS. PERFORMED BY: [place] [address] PATHOLOGIST [employer] CINTIA GLASGOW M.D. Normal [facility] Comment on above: Performed By: #### C UU #### [address] Urine Cultureon 04-21-2025 Bacteria identified Cx Nom (U) ORGANISM: Escherichia coli (ESBL) (O:ESCCOLESBL) [place] Count >100,000 Aerobic AIDEN Charge (NMIC56) ------ [...] RESISTANT TO ALL B-LACTAM DRUGS. PERFORMED BY: [facility] [address] [place] [address] PATHOLOGIST [employer] CINTIA GLASGOW M.D. Normal [facility] Comment on above: Performed By: #### C UU #### [facility] [address] Urine cultureOrdered By: Adal Lynne on 04-21-2025 Bacteria identified Cx Nom (U) Escherichia coli (ESBL) Abnormal [facility] No Panel Informationon 03-23 [facility] Healthcare Office Visiton 02-25-2025 Follow-up visit [id number] Kylah Robin 1945 F Date Provider Department Center 02/25/2025 Yassine-STEFANO CATHERINE ANNIA Stacy Family History Family history unknown: Yes Level of Service:51834 OR OFFICE/OUTPATIENT ESTABLISHED MOD MDM 30 MIN Normal [facility] Glucose (Bld) [Mass/Vol]on 0 02-15-2025 Glucose Blood, POC 238 mg/dL [facility] - Hematology and Cell countson 02-15-2025 HbA1c (Bld) [Mass fraction] 6.6 % [facility] No Panel Informationon 02-15 [facility] Erythrocyte distribution wid th Auto (RBC) [Ratio]on 01-05-2025 Erythrocyte distribution width (RBC) [Ratio] Erythrocyte distribution width [Ratio] by Automated count High 11.0-15.0 [facility] Estimated glomerular filtrat ion rate (GFR) non- Americanon 01-05-2025 GFR/1.73 sq M.predicted among non-blacks MDRD (S/P/Bld) [Vol rate/Area] Estimated glomerular filtration rate (GFR) non- Low >=60 mL/min/1.73m 2 [facility] Hematocrit Auto (Bld) [Volum e fraction]on 01-05-2025 Hematocrit (Bld) [Volume fraction] Hematocrit [Volume Fraction] of Blood by Automated count Low 36.0-48.0 [facility] Hemoglobin [Mass/volume] in Bloodon 01-05-2025 Hemoglobin (Bld) [Mass/Vol] Hemoglobin [Mass/volume] in Blood Low 12.0-16.0 [facility] Iron binding capacity [Mass/ volume] in Serum or Plasmaon 01-05-2025 Iron binding capacity [Mass/Vol] Iron binding capacity [Mass/volume] in Serum or Plasma Low 250.0-450.0 [facility] Iron saturation [Mass Fracti on] in Serum or Plasmaon 01-05-2025 Iron saturation [Mass fraction] Iron saturation [Mass Fraction] in Serum or Plasma [facility] Laboratory - Chemistry and C hemistry - challengeon 01-05-2025 Albumin [Mass/Vol] 3.3 g/dL Low 3.4-5.0 [facility] Calcium [Mass/Vol] 9.2 mg/dL 8.5-10.1 [facility] Chloride [Moles/Vol] 105 mmol/L 98-107 [facility] CO2 [Moles/Vol] 24.4 mmol/L 21.0-32.0 [facility] Creatinine [Mass/Vol] 1.89 mg/dL High 0.55-1.02 [facility] Ferritin [Mass/Vol] 499.0 ng/mL High 8.0-252.0 [facility] GFR/1.73 sq M.predicted MDRD (S/P/Bld) [Vol rate/Area] 31 mL/min/{1.73_m2} Low >=60 mL/min/1.73m 2 [facility] Glucose [Mass/Vol] 122 mg/dL High 74-106 [facility] Iron [Mass/Vol] 69.0 ug/dL 50.0-170.0 [facility] Magnesium [Mass/Vol] 1.9 mg/dL 1.8-2.4 [facility] Potassium [Moles/Vol] 4.7 mmol/L 3.5-5.1 [facility] Sodium [Moles/Vol] 141 mmol/L 136-145 [facility] Urate [Mass/Vol] 3.9 mg/dL 2.6-6.0 [facility] Urea nitrogen [Mass/Vol] 35.0 mg/dL High 7.0-18.0 [facility] Urea nitrogen/Creatinine [Mass ratio] 18.5 mg/mg [facility] Laboratory - Urinalysison Protein (U) [Mass/Vol] 108.9 mg/dL High <=11.9 F [facility] Leukocytes [#/volume] correc jean for nucleated erythrocytes in Blood by Automated counon 01-05-2025 WBC corrected for nucl RBC Auto (Bld) [#/Vol] Leukocytes [#/volume] corrected for nucleated erythrocytes in Blood by Automated coun 4.0-11.0 [facility] MCH Auto (RBC) [Entitic mass ]on 01-05-2025 MCH (RBC) [Entitic mass] MCH [Entitic mass] by Automated count 26.7-34.0 [facility] MCHC Auto (RBC) [Mass/Vol]on 01-05-2025 MCHC (RBC) [Mass/Vol] MCHC [Mass/volume] by Automated count 29.9-35.2 [facility] MCV Auto (RBC) [Entitic vol] on 01-05-2025 MCV (RBC) [Entitic vol] MCV [Entitic volume] by Automated count 81.0-99.0 [facility] No Panel Informationon 01-05 Urine Random Creatinine 157.18 mg/dL 20.00-300. 00 [facility] 25-Hydroxy Vitamin D Total 30.9 ng/mL [facility] Comment on above: <20 ng/mL Vit D defi cient20-<30 ng/mL Vit D [id number] ng/mL Vit D sufficient>100 ng/mL Potential Toxicity Parathyroid Hormone (Intact) 73 pg/mL Abnormal 15-65 [facility] Comment on above: Performed at: [address] [id number] Director: Ashok Benson PhD, Phone: [phone] Phosphorus Level 3.8 mg/dL 2.6-4.7 [facility] Platelet mean volume Auto (B ld) [Entitic vol]on 01-05-2025 Platelet mean volume (Bld) [Entitic vol] Platelet mean volume [Entitic volume] in Blood by Automated count Low 9.5-13.5 [facility] Platelets Auto (Bld) [#/Vol] on 01-05-2025 Platelets (Bld) [#/Vol] Platelets [#/volume] in Blood by Automated count 150-450 [facility] RBC Auto (Bld) [#/Vol]on RBC (Bld) [#/Vol] Erythrocytes [#/volume] in Blood by Automated count Low 4.20-5.40 [facility] Serum or plasma anion gap de terminationon 01-05-2025 Anion gap [Moles/Vol] Serum or plasma anion gap determination [facility] Urine protein/creatinine rat ioon 01-05-2025 Protein/Creatinine (U) [Ratio] Urine protein/creatinine ratio [facility] Office Visiton 11-27-2024 Follow-up visit [id number] Kylah Robin 1945 F Date Provider Department Center 11/27/2024 87834-MONQMPALEJANDRO YOON ANNIA Leach [facility] Family History Family history unknown: Yes Level of Service:66586 OR OFFICE/OUTPATIENT ESTABLISHED MOD MDM 30 MIN Normal [facility] Glucose (Bld) [Mass/Vol]Orde red By: Maria Antonia Mo on 11-16-2024 Glucose Blood, POC 220 mg/dL [facility] - Hematology and Cell countson 11-16-2024 HbA1c (Bld) [Mass fraction] 7 % [facility] No Panel InformationOrdered By: Maria Antonia Mo on 11-16-2024 [facility] Glucose (Bld) [Mass/Vol]Orde red By: Maria Antonia Mo on 07-13-2024 Glucose Blood, POC 180 mg/dL [facility] No Panel Informationon 05-25 Type [...] Specimen sent for: H&E Photo taken yes [facility] No Panel InformationOrdered By: Philomena Salter on 05-25-2024 [facility] Healthcare Office Visiton 05-11-2024 Follow-up visit [id number] Kylah Robin 1945 F Date Provider Department Center 05/11/2024 [facility]-STEFANO CATHERINE [facility] No family history on file Level of Service:84270 OR OFFICE/OUTPATIENT ESTABLISHED MOD MDM 30 MIN Normal [facility] POCT EKGon 01-17-2024 [facility] HEMOGRAM AND PLATELon 2022 Hematocrit (Bld) [Volume fraction] 28.8 % Critically low 36.0-48.0 [facility] Comment on above: Performed By: #### H H #### [facility] [address] [place] [address] Dr. Ember Teague Hemoglobin (Bld) [Mass/Vol] 9.6 g/dL Critically low 12.0-16.0 [facility] Comment on above: Performed By: #### H H #### [facility] [address] [place] [address] Dr. Ember Teague MCH (RBC) [Entitic mass] 30.7 pg Normal 26.7-34.0 [facility] Comment on above: Performed By: #### H H #### [facility] [address] [place] [address] Dr. Ember Teague MCHC (RBC) [Mass/Vol] 33.3 g/dL Normal 29.9-35.2 [facility] Comment on above: Performed By: #### H H #### [facility] [address] [place] [address] Dr. Ember Teague MCV (RBC) [Entitic vol] 92.0 fL Normal 81.0-99.0 [facility] Comment on above: Performed By: #### H H #### [facility] [address] [place] [address] Dr. Ember Teague PLT 214 103/ul Normal 150-450 [facility] Comment on above: Performed By: #### H H #### [facility] [address] [place] [address] Dr. Ember Teague RBC 3.13 106/ul Critically low 4.20-5.[address] [facility] Comment on above: Performed By: #### H H #### [facility] [address] [place] [address] Dr. Ember Teague WBC 7.4 103/ul Normal 4.0-11.0 [facility] Comment on above: Performed By: #### H H #### [facility] [address] [place] [address] Dr. Ember Teague MAGNESIUMon 01-22-2023 Magnesium [Mass/Vol] 1.8 mg/dL Normal 1.8-2.4 [facility] Comment on above: Performed By: #### M G, RENAL #### [facility] [address] [place] [address] Dr. Ember Teague RENAL FUNCTION PANELon 01-22 Albumin [Mass/Vol] 3.6 g/dL Normal 3.4-5.0 [facility] Comment on above: Performed By: #### M G, RENAL #### [facility] [address] [place] [address] Dr. Ember Teague Calcium [Mass/Vol] 9.7 mg/dL Normal 8.5-10.1 [facility] Comment on above: Performed By: #### M G, RENAL #### [facility] [address] [address] [address] Ember Teague Chloride [Moles/Vol] 105 mmol/L Normal 98-107 [facility] Comment on above: Performed By: #### M G, RENAL #### [facility] [address] [address] [address] Ember Teague CO2 [Moles/Vol] 22.6 mmol/L Normal 21.0-32.0 [facility] Comment on above: Performed By: #### M G, RENAL #### [facility] [address] [place] [address] Dr. Ember Teague Creatinine [Mass/Vol] 2.18 mg/dL Critically high 0.55-1.02 [facility] Comment on above: Performed By: #### M G, RENAL #### [facility] [address] [place] [address] Dr. Ember Teague EGFR-AF MONTENEGRIN 26 mL/min/1.73m2 Critically low >=60 [facility] Comment on above: Performed By: #### M G, RENAL #### [facility] [address] [place] [address] Dr. Ember Teague EGFR-NON AF MONTENEGRIN 22 mL/min/1.73m2 Critically low >=60 [facility] Comment on above: Performed By: #### M G, RENAL #### [facility] [address] [place] [address] Dr. Ember Teague Glucose [Mass/Vol] 134 mg/dL Critically high 74-106 [facility] Comment on above: Performed By: #### M G, RENAL #### [facility] [address] [place] [address] Dr. Ember Teague Phosphate [Mass/Vol] 4.6 mg/dL Normal 2.6-4.7 [facility] Comment on above: Performed By: #### M G, RENAL #### [facility] [address] [place] [address] Dr. Ember Teague Potassium [Moles/Vol] 5.1 mmol/L Normal 3.5-5.1 [facility] Comment on above: Performed By: #### M G, RENAL #### [facility] [address] [place], [place] [address] Dr. Ember Teague Sodium [Moles/Vol] 138 mmol/L Normal 136-145 [facility] Comment on above: Performed By: #### M G, RENAL #### [facility] [address] [place], [place] [address] Dr. Ember Teague Urea nitrogen [Mass/Vol] 61.0 mg/dL Critically high 7.0-18.0 [facility] Comment on above: Performed By: #### M G, RENAL #### [facility] [address] [place], [place] [address] Dr. Ember Teague MG MAMM SCREEN 3D MAY CADon 12-17-2022 MG MAMM SCREEN 3D MAY CAD Patient: KYLAH ROBIN Exam Date: 12/17/2022 : 1945 Gender:F Ordering : DR DHRUV RUBI . Admission #: [id number] Family : Order #: [id number] CLICK HERE TO VIEW EXAM RADIOLOGY REPORT [...] lung cancer at age 61. LOCATION: [facility] BREAST COMPOSITION: Scattered areas fibroglandular [...] MD on 12/17/2022 at 11:59 Normal [facility] FERRITINon 12-10-2022 Ferritin [Mass/Vol] 681.0 ng/mL Critically high 8.0-252.0 [facility] Comment on above: Performed By: #### P THINT #### [facility] [address] [place] [address] Dr. Ember Teague HEMOGRAM AND PLATELon 2022 Hematocrit (Bld) [Volume fraction] 27.1 % Critically low 36.0-48.0 [facility] Comment on above: Performed By: #### C VDTBH #### [facility] [address] [place] [address] Dr. Ember Teague Hemoglobin (Bld) [Mass/Vol] 9.7 g/dL Critically low 12.0-16.0 [facility] Comment on above: Performed By: #### C VDTBH #### [facility] [address] [place] [address] Dr. Ember Teague MCH (RBC) [Entitic mass] 31.4 pg Normal 26.7-34.0 [facility] Comment on above: Performed By: #### C VDTBH #### [facility] [address] [place] [address] Dr. Ember Teague MCHC (RBC) [Mass/Vol] 35.8 g/dL Critically high 29.9-35.2 [facility] Comment on above: Performed By: #### C VDTBH #### [facility] [address] [place] [address] Dr. Ember Teague MCV (RBC) [Entitic vol] 87.7 fL Normal 81.0-99.0 [facility] Comment on above: Performed By: #### C VDTBH #### [facility] [address] [place] [address] Dr. Ember Teague PLT 218 103/ul Normal 150-450 [facility] Comment on above: Performed By: #### C VDTBH #### [facility] [address] [place] [address] Dr. Ember Teague RBC 3.09 106/ul Critically low 4.20-5.[address] [facility] Comment on above: Performed By: #### C VDTBH #### [facility] [address] [address] [address] Ember Teague WBC 6.6 103/ul Normal 4.0-11.0 [facility] Comment on above: Performed By: #### C VDTBH #### [facility] [address] [place], [place] [address] Dr. Ember Teague IRON AND TIBCon 12-10-2022 % SATURATION 30.2 % Normal [facility] Comment on above: Performed By: #### P THINT #### [facility] [address] [address] [address] Ember Teague Iron [Mass/Vol] 84.0 ug/dL Normal 50.0-170.[address] [facility] Comment on above: Performed By: #### P THINT #### [facility] [address] [place] [address] Dr. Ember Teague TIBC DIRECT 278.0 ug/dL Normal 250.0-450.0 [facility] Comment on above: Performed By: #### P THINT #### [facility] [address] [place] [address] Dr. Ember Teague XR FOOT MAY MIN [...] BENI APARICIO Date: 2022-11-20 14:03 Normal [facility] HEMOGRAM AND PLATELon 2022 Hematocrit (Bld) [Volume fraction] 27.7 % Critically low 36.0-48.0 [facility] Comment on above: Performed By: #### R ENAL #### [facility] [address] [place] [address] Dr. Ember Teague Hemoglobin (Bld) [Mass/Vol] 10.0 g/dL Critically low 12.0-16.0 [facility] Comment on above: Performed By: #### R ENAL #### [facility] [address] [place] [address] Dr. Ember Teague MCH (RBC) [Entitic mass] 31.6 pg Normal 26.7-34.0 [facility] Comment on above: Performed By: #### R ENAL #### [facility] [address] [place] [address] Dr. Ember Teague MCHC (RBC) [Mass/Vol] 36.1 g/dL Critically high 29.9-35.2 [facility] Comment on above: Performed By: #### R ENAL #### [facility] [address] [place] [address] Dr. Ember Teague MCV (RBC) [Entitic vol] 87.7 fL Normal 81.0-99.0 [facility] Comment on above: Performed By: #### R ENAL #### [facility] [address] [place] [address] Dr. Ember Teague PLT 182 103/ul Normal 150-450 [facility] Comment on above: Performed By: #### R ENAL #### [facility] [address] [place] [address] Dr. Ember Teague RBC 3.16 106/ul Critically low 4.20-5.40 [facility] Comment on above: Performed By: #### R ENAL #### [facility] [address] [place] [address] Dr. Ember Teague WBC 6.8 103/ul Normal 4.0-11.0 [facility] Comment on above: Performed By: #### R ENAL #### [facility] [address] [place] [address] Dr. Ember Teague PROF CHEM 8 (BAS METB)on Anion gap [Moles/Vol] 17.6 mmol/L Normal [facility] Comment on above: Performed By: #### C VDTBH #### [facility] [address] [address] [address] Ember Teague Calcium [Mass/Vol] 9.0 mg/dL Normal 8.5-10.1 [facility] Comment on above: Performed By: #### C VDTBH #### [facility] [address] [address] [address] Ember Teague Chloride [Moles/Vol] 104 mmol/L Normal 98-107 [facility] Comment on above: Performed By: #### C VDTBH #### [facility] [address] [place] [address] Dr. Ember Teague CO2 [Moles/Vol] 22.2 mmol/L Normal 21.0-32.0 [facility] Comment on above: Performed By: #### C VDTBH #### [facility] [address] [place] [address] Dr. Ember Teague Creatinine [Mass/Vol] 2.03 mg/dL Critically high 0.55-1.02 [facility] Comment on above: Performed By: #### C VDTBH #### [facility] [address] [place] [address] Dr. Ember Teague EGFR-AF MONTENEGRIN 29 mL/min/1.73m2 Critically low >=60 [facility] Comment on above: Performed By: #### C VDTBH #### [facility] [address] [place] [address] Dr. Ember Teague EGFR-NON AF MONTENEGRIN 24 mL/min/1.73m2 Critically low >=60 [facility] Comment on above: Performed By: #### C VDTBH #### [facility] [address] [place] [address] Dr. Ember Teague Glucose [Mass/Vol] 154 mg/dL Critically high 74-106 [facility] Comment on above: Performed By: #### C VDTBH #### [facility] [address] [address] [address] Ember Teague Potassium [Moles/Vol] 4.8 mmol/L Normal 3.5-5.1 [facility] Comment on above: Performed By: #### C VDTBH #### [facility] [address] [place] [address] Dr. Ember Teague Sodium [Moles/Vol] 139 mmol/L Normal 136-145 [facility] Comment on above: Performed By: #### C VDTBH #### [facility] [address] [place] [address] Dr. Ember Teague Urea nitrogen [Mass/Vol] 43.0 mg/dL Critically high 7.0-18.0 [facility] Comment on above: Performed By: #### C VDTBH #### [facility] [address] [place] [address] Dr. Ember Teague Urea nitrogen/Creatinine [Mass ratio] 21.2 mg/mg Normal [facility] Comment on above: Performed By: #### C VDTBH #### [facility] [address] [place] [address] Dr. Ember Teague CULTURE SPUTUMon 10-24-2022 CULTURE SPUTUM Culture Observations: Beta lactamase positive Isolate 1 Haemophilus influenzae Moderate growth of Normal [facility] Comment on above: Performed By: #### R ENAL #### [facility] [address] [place] [address] Dr. Ember Teague SPUTUM GRAM STAINon 10-24-19 23 COMMENTS Normal [facility] Comment on above: Performed By: #### R ENAL #### [facility] [address] [place] [address] Dr. Ember Teague DIPHTHEROIDS Normal [facility] Comment on above: Performed By: #### R ENAL #### [facility] [address] [place] [address] Dr. Ember Teague EPITHELIALS >25 Normal [facility] Comment on above: Performed By: #### R ENAL #### [facility] [address] [place] [address] Dr. Ember Teague FUNGAL ELEMENTS Normal [facility] Comment on above: Performed By: #### R ENAL #### [facility] [address] [address] [address] Ember Teague GRAM NEG BACILLI Normal [facility] Comment on above: Performed By: #### R ENAL #### [facility] [address] [address] [address] Ember Teague GRAM NEG DIPPLOCOCCI FEW Normal [facility] Comment on above: Performed By: #### R ENAL #### [facility] [address] [address] [address] Ember Teague GRAM POS BACILLI FEW Normal [facility] Comment on above: Performed By: #### R ENAL #### [facility] [address] [address] [address] Ember Teague GRAM POSITIVE COCCI MANY Normal [facility] Comment on above: Performed By: #### R ENAL #### [facility] [address] [place] [address] Dr. Ember Teague WBC (Bld) [#/Vol] 10*3/uL Normal [facility] Comment on above: Performed By: #### R ENAL #### [facility] [address] [place] [address] Dr. Ember Teague XR CHEST 2 Von [...] by: ANGELINA BRISENO Date: 2022-10-24 16:22 Normal [facility] FERRITINon 09-18-2022 Ferritin [Mass/Vol] 612.0 ng/mL Critically high 8.0-252.0 [facility] Comment on above: Performed By: #### F ERR, FETIBC #### [facility] [address] [address] [address] Ember Teague HEMOGRAM AND PLATELon 2021 Hematocrit (Bld) [Volume fraction] 28.1 % Critically low 36.0-48.0 [facility] Comment on above: Performed By: #### C BC #### [facility] [address] [address] [address] Ember Teague Hemoglobin (Bld) [Mass/Vol] 9.7 g/dL Critically low 12.0-16.0 [facility] Comment on above: Performed By: #### C BC #### [facility] [address] [address] [address] Ember Teague MCH (RBC) [Entitic mass] 31.3 pg Normal 26.7-34.0 [facility] Comment on above: Performed By: #### C BC #### [facility] [address] [place] [address] Dr. Ember Teague MCHC (RBC) [Mass/Vol] 34.5 g/dL Normal 29.9-35.2 [facility] Comment on above: Performed By: #### C BC #### [facility] [address] [address] [address] Ember Teague MCV (RBC) [Entitic vol] 90.6 fL Normal 81.0-99.0 [facility] Comment on above: Performed By: #### C BC #### [facility] [address] [address] [address] Ember Teague PLT 183 103/ul Normal 150-450 [facility] Comment on above: Performed By: #### C BC #### [facility] [address] [address] [address] Ember Teague RBC 3.10 106/ul Critically low 4.20-5.40 [facility] Comment on above: Performed By: #### C BC #### [facility] [address] [address] [address] Ember Teague WBC 7.2 103/ul Normal 4.0-11.0 [facility] Comment on above: Performed By: #### C BC #### [facility] [address] [address] [address] Ember Teague IRON AND TIBCon 09-18-2022 % SATURATION 36.0 % Normal [facility] Comment on above: Performed By: #### F ERR, FETIBC #### [facility] [address] [address] [address] Ember Teague Iron [Mass/Vol] 77.0 ug/dL Normal 50.0-170.0 [facility] Comment on above: Performed By: #### F ERR, FETIBC #### [facility] [address] [address] [address] Ember Teague TIBC DIRECT 214.0 ug/dL Critically low 250.0-450.0 [facility] Comment on above: Performed By: #### F ERR, FETIBC #### [facility] [address] [place] [address] Dr. Ember Teague RENAL FUNCTION PANELon 09-18 Albumin [Mass/Vol] 3.7 g/dL Normal 3.4-5.0 [facility] Comment on above: Performed By: #### R ENAL #### [facility] [address] [address] [address] Ember Teague Calcium [Mass/Vol] 9.5 mg/dL Normal 8.5-10.1 [facility] Comment on above: Performed By: #### R ENAL #### [facility] [address] [address] [address] Ember Teague Chloride [Moles/Vol] 103 mmol/L Normal 98-107 [facility] Comment on above: Performed By: #### R ENAL #### [facility] [address] [address] [address] Ember Teague CO2 [Moles/Vol] 21.1 mmol/L Normal 21.0-32.0 [facility] Comment on above: Performed By: #### R ENAL #### [facility] [address] [address] [address] Ember Teague Creatinine [Mass/Vol] 1.85 mg/dL Critically high 0.55-1.02 [facility] Comment on above: Performed By: #### R ENAL #### [facility] [address] [address] [address] Ember Teague EGFR-AF MONTENEGRIN 32 mL/min/1.73m2 Critically low >=60 [facility] Comment on above: Performed By: #### R ENAL #### [facility] [address] [address] [address] Ember Teague EGFR-NON AF MONTENEGRIN 26 mL/min/1.73m2 Critically low >=60 [facility] Comment on above: Performed By: #### R ENAL #### [facility] [address] [address] [address] Ember Teague Glucose [Mass/Vol] 183 mg/dL Critically high 74-106 [facility] Comment on above: Performed By: #### R ENAL #### [facility] [address] [address] [address] Ember Teague Phosphate [Mass/Vol] 3.7 mg/dL Normal 2.6-4.7 [facility] Comment on above: Performed By: #### R ENAL #### [facility] [address] [address] [address] Ember Teague Potassium [Moles/Vol] 4.9 mmol/L Normal 3.5-5.1 [facility] Comment on above: Performed By: #### R ENAL #### [facility] [address] [address] [address] Ember Teague Sodium [Moles/Vol] 138 mmol/L Normal 136-145 [facility] Comment on above: Performed By: #### R ENAL #### [facility] [address] [address] [address] Ember Teague Urea nitrogen [Mass/Vol] 40.0 mg/dL Critically high 7.0-18.0 [facility] Comment on above: Performed By: #### R ENAL #### [facility] [address] [address] [address] Ember Teague CULTURE URINEon 12-10-2022 CULTURE URINE Isolate 1 Citrobacter freundii >100,000 [...] F Trimethoprim/Sulfam ethoxazole <=20 S F Normal [facility] Comment on above: Performed By: #### R ENAL #### [facility] [address] [place] [address] Dr. Ember Teague BNPon 09-11-2022 Natriuretic peptide B (Bld) [Mass/Vol] 408.0 pg/mL Normal <=1,800.0 [facility] Comment on above: Performed By: #### P THINT #### [facility] [address] [place] [address] Dr. Ember Teague CBC AUTO DIFFon 09-11-2022 BASO # 0.0 103/ul Normal 0.0-0.1 [facility] Comment on above: Performed By: #### C BC #### [facility] [address] [place] [address] Dr. Ember Teague Basophils/100 WBC (Bld) 0.3 % Normal 0.2-2.0 [facility] Comment on above: Performed By: #### C BC #### [facility] [address] [place] [address] Dr. Ember Teague EO # 0.1 103/ul Normal 0.0-0.7 [facility] Comment on above: Performed By: #### C BC #### [facility] [address] [place] [address] Dr. Ember Teague Eosinophils/100 WBC (Bld) 1.9 % Normal 0.9-7.0 [facility] Comment on above: Performed By: #### C BC #### [facility] [address] [place] [address] Dr. Ember Teague Erythrocyte distribution width (RBC) [Ratio] 15.2 % Critically high 11.0-15.0 [facility] Comment on above: Performed By: #### C BC #### [facility] [address] [place] [address] Dr. Ember Teague Hematocrit (Bld) [Volume fraction] 26.6 % Critically low 36.0-48.0 [facility] Comment on above: Performed By: #### C BC #### [facility] [address] [place] [address] Dr. Ember Teague Hemoglobin (Bld) [Mass/Vol] 9.0 g/dL Critically low 12.0-16.0 [facility] Comment on above: Performed By: #### C BC #### [facility] [address] [place] [address] Dr. Ember Teague IG # 0.02 10e3/ul Normal 0.00-0.03 [facility] Comment on above: Performed By: #### C BC #### [facility] [address] [place] [address] Dr. Ember Teague IG % 0.3 % Normal 0.0-0.5 [facility] Comment on above: Performed By: #### C BC #### [facility] [address] [place] [address] Dr. Ember Teague LYMPH # 1.9 103/ul Normal 1.2-3.8 [facility] Comment on above: Performed By: #### C BC #### [facility] [address] [place] [address] Dr. Ember Teague Lymphocytes/100 WBC (Bld) 32.4 % Normal 20.5-60.0 [facility] Comment on above: Performed By: #### C BC #### [facility] [address] [place] [address] Dr. Ember Teague MANUAL DIFF REQ NO Normal [facility] Comment on above: Performed By: #### C BC #### [facility] [address] [place] [address] Dr. Ember Teague MCH (RBC) [Entitic mass] 31.1 pg Normal 26.7-34.0 [facility] Comment on above: Performed By: #### C BC #### [facility] [address] [place] [address] Dr. Ember Teague MCHC (RBC) [Mass/Vol] 33.8 g/dL Normal 29.9-35.2 [facility] Comment on above: Performed By: #### C BC #### [facility] [address] [place] [address] Dr. Ember Teague MCV (RBC) [Entitic vol] 92.0 fL Normal 81.0-99.0 [facility] Comment on above: Performed By: #### C BC #### [facility] [address] [place] [address] Dr. Ember Teague MONO # 0.6 103/ul Normal 0.3-0.8 [facility] Comment on above: Performed By: #### C BC #### [facility] [address] [place] [address] Dr. Ember Teague Monocytes/100 WBC (Bld) 10.0 % Normal 1.7-12.0 [facility] Comment on above: Performed By: #### C BC #### [facility] [address] [place] [address] Dr. Ember Teague NEUT # 3.2 103/ul Normal 1.4-6.5 [facility] Comment on above: Performed By: #### C BC #### [facility] [address] [place] [address] Dr. Ember Teague Neutrophils/100 WBC (Bld) 55.1 % Normal 43.0-75.0 [facility] Comment on above: Performed By: #### C BC #### [facility] [address] [place] [address] Dr. Ember Teague Platelet mean volume (Bld) [Entitic vol] 9.4 fL Critically low 9.5-13.5 [facility] Comment on above: Performed By: #### C BC #### [facility] [address] [place] [address] Dr. Ember Teague PLT 196 103/ul Normal 150-450 [facility] Comment on above: Performed By: #### C BC #### [facility] [address] [place] [address] Dr. Ember Teague RBC 2.89 106/ul Critically low 4.20-5.[address] [facility] Comment on above: Performed By: #### C BC #### [facility] [address] [address] [address] Ember Teague WBC 5.8 103/ul Normal 4.0-11.0 [facility] Comment on above: Performed By: #### C BC #### [facility] [address] [place] [address] Dr. Ember Teague PROF 14(COMP METB)on 022 Albumin [Mass/Vol] 3.7 g/dL Normal 3.4-5.0 [facility] Comment on above: Performed By: #### P THINT #### [facility] [address] [place] [address] Dr. Ember Teague Albumin/Globulin [Mass ratio] 1.0 {ratio} Normal [facility] Comment on above: Performed By: #### P THINT #### [facility] [address] [place] [address] Dr. Ember Teague ALP [Catalytic activity/Vol] 79 U/L Normal 46-116 [facility] Comment on above: Performed By: #### P THINT #### [facility] [address] [place] [address] Dr. Ember Teague ALT [Catalytic activity/Vol] 24 U/L Normal 14-59 [facility] Comment on above: Performed By: #### P THINT #### [facility] [address] [place] [address] Dr. Ember Teague Anion gap [Moles/Vol] 12.8 mmol/L Normal [facility] Comment on above: Performed By: #### P THINT #### [facility] [address] [place] [address] Dr. Ember Teague AST [Catalytic activity/Vol] 17 U/L Normal 15-37 [facility] Comment on above: Performed By: #### P THINT #### [facility] [address] [place] [address] Dr. Ember Teague Bilirubin [Mass/Vol] 0.5 mg/dL Normal 0.2-1.0 [facility] Comment on above: Performed By: #### P THINT #### [facility] [address] [place] [address] Dr. Ember Teague Calcium [Mass/Vol] 9.4 mg/dL Normal 8.5-10.1 [facility] Comment on above: Performed By: #### P THINT #### [facility] [address] [place] [address] Dr. Ember Teague Chloride [Moles/Vol] 101 mmol/L Normal 98-107 [facility] Comment on above: Performed By: #### P THINT #### [facility] [address] [place] [address] Dr. Ember Teague CO2 [Moles/Vol] 24.3 mmol/L Normal 21.0-32.0 [facility] Comment on above: Performed By: #### P THINT #### [facility] [address] [place] [address] Dr. Ember Teague Creatinine [Mass/Vol] 2.84 mg/dL Critically high 0.55-1.02 [facility] Comment on above: Performed By: #### P THINT #### [facility] [address] [place] [address] Dr. Ember Teague EGFR-AF MONTENEGRIN 20 mL/min/1.73m2 Critically low >=60 [facility] Comment on above: Performed By: #### P THINT #### [facility] [address] [place] [address] Dr. Ember Teague EGFR-NON AF MONTENEGRIN 16 mL/min/1.73m2 Critically low >=60 [facility] Comment on above: Performed By: #### P THINT #### [facility] [address] [place] [address] Dr. Ember Teague Globulin (S) [Mass/Vol] 3.7 g/dL Normal [facility] Comment on above: Performed By: #### P THINT #### [facility] [address] [place] [address] Dr. Ember Teague Glucose [Mass/Vol] 174 mg/dL Critically high 74-106 [facility] Comment on above: Performed By: #### P THINT #### [facility] [address] [place] [address] Dr. Ember Teague Potassium [Moles/Vol] 5.1 mmol/L Normal 3.5-5.1 [facility] Comment on above: Performed By: #### P THINT #### [facility] [address] [place] [address] Dr. Ember Teague Protein [Mass/Vol] 7.4 g/dL Normal 6.4-8.2 [facility] Comment on above: Performed By: #### P THINT #### [facility] [address] [address] [address] Ember Teague Sodium [Moles/Vol] 133 mmol/L Critically low 136-145 [facility] Comment on above: Performed By: #### P THINT #### [facility] [address] [place] [address] Dr. Ember Teague Urea nitrogen [Mass/Vol] 68.0 mg/dL Critically high 7.0-18.0 [facility] Comment on above: Performed By: #### P THINT #### [facility] [address] [place] [address] Dr. Ember Teague Urea nitrogen/Creatinine [Mass ratio] 23.9 mg/mg Normal [facility] Comment on above: Performed By: #### P THINT #### [facility] [address] [place] [address] Dr. Ember Teague TROPONIN, HIGH SENSITIVITYon 09-11-2022 HSTROP 9.1 pg/mL Normal 4.0-51.3 [facility] Comment on above: Result Comment: CUT- OFF POINTS HAVE BEEN ESTABLISHED BASED ON THE FOURTH UNIVERSAL DEFINITIONS OF MYOCARDIAL INFARCTION. THE UPPER REFERENCE LIMIT (URL) OF TROPONIN, DEFINED THE 99TH PERCENTILE OF cTnI DISTRIBUTION IN A REFERENCE POPULATION, HAS BEEN CONFIRMED THE DECISION THRESHOLD FOR [place] DIAGNOSIS. Performed By: #### P THINT #### [facility] [address] [place] [address] Dr. Ember Teague UA RANDOM W/MICROSCOPICon BACTERIA NONE SEEN Normal NONE SEEN [facility] Comment on above: Performed By: #### C VDTBH #### [facility] [address] [place] [address] Dr. Ember Teague Bilirubin Ql (U) Negative Normal NEGATIVE [facility] Comment on above: Performed By: #### C VDTBH #### [facility] [address] [place] [address] Dr. Ebmer Teague CAST NONE SEEN Normal NONE SEEN [facility] Comment on above: Performed By: #### C VDTBH #### [facility] [address] [place] [address] Dr. mEber Teague Clarity (U) CLEAR Normal CLEAR [facility] Comment on above: Performed By: #### C VDTBH #### [facility] [address] [place] [address] Dr. Ember Teague Color (U) LT. YELLOW Normal YELLOW [facility] Comment on above: Performed By: #### C VDTBH #### [facility] [address] [place] [address] Dr. Ember Teague Crystals LM Nom (Urine sed) NONE SEEN Normal NONE SEEN [facility] Comment on above: Performed By: #### C VDTBH #### [facility] [address] [place] [address] Dr. Ember Teague Epithelial cells LM Ql (Urine sed) FEW Abnormal NONE SEEN /RARE [facility] Comment on above: Performed By: #### C VDTBH #### [facility] [address] [place] [address] Dr. Ember Tegaue Glucose Ql (U) Negative Normal NEGATIVE [facility] Comment on above: Performed By: #### C VDTBH #### [facility] [address] [place] [address] Dr. Ember Teague Hemoglobin Ql (U) Negative Normal NEGATIVE [facility] Comment on above: Performed By: #### C VDTBH #### [facility] [address] [place] [address] Dr. Ember Teague Ketones Ql (U) Negative Normal NEGATIVE [facility] Comment on above: Performed By: #### C VDTBH #### [facility] [address] [place] [address] Dr. Ember Teague LEUKOCYTES Negative Normal NEGATIVE [facility] Comment on above: Performed By: #### C VDTBH #### [facility] [address] [place] [address] Dr. Ember Teague MUCOUS NONE SEEN Normal NONE SEEN [facility] Comment on above: Performed By: #### C VDTBH #### [facility] [address] [place] [address] Dr. Ember Teague Nitrite Ql (U) Negative Normal NEGATIVE [facility] Comment on above: Performed By: #### C VDTBH #### [facility] [address] [place] [address] Dr. Ember Teague pH (U) 5.5 [pH] Normal 5-9 [facility] Comment on above: Performed By: #### C VDTBH #### [facility] [address] [place] [address] Dr. Ember Teague RBC NONE SEEN Abnormal 0-2 [facility] Comment on above: Performed By: #### C VDTBH #### [facility] [address] [place] [address] Dr. Ember Teague SPEC GRAVITY 1.010 Normal 1.005-<=1.025 [facility] Comment on above: Performed By: #### C VDTBH #### [facility] [address] [place] [address] Dr. Ember Teague UA PROTEIN Negative Normal NEGATIVE/ TRACE [facility] Comment on above: Performed By: #### C VDTBH #### [facility] [address] [place] [address] Dr. Ember Teague Urobilinogen Qn (U) 0.2 {Esau'U}/dL Normal 0.2 - 1. 0 [facility] Comment on above: Performed By: #### C VDTBH #### [facility] [address] [place] [address] Dr. Ember Teague WBC NONE SEEN Normal NONE SEEN [facility] Comment on above: Performed By: #### C VDTBH #### [facility] [address] [place] [address] Dr. Ember Teague CBC AUTO DIFFon 08-13-2022 BASO # 0.0 103/ul Normal 0.0-0.1 [facility] Comment on above: Performed By: #### C BC #### [facility] [address] [place] [address] Dr. Ember Teague Basophils/100 WBC (Bld) 0.3 % Normal 0.2-2.0 [facility] Comment on above: Performed By: #### C BC #### [facility] [address] [place] [address] Dr. Ember Teague EO # 0.2 103/ul Normal 0.0-0.7 [facility] Comment on above: Performed By: #### C BC #### [facility] [address] [place] [address] Dr. Ember Teague Eosinophils/100 WBC (Bld) 3.7 % Normal 0.9-7.0 [facility] Comment on above: Performed By: #### C BC #### [facility] [address] [place] [address] Dr. Ember Teague Erythrocyte distribution width (RBC) [Ratio] 15.0 % Normal 11.0-15.0 [facility] Comment on above: Performed By: #### C BC #### [facility] [address] [place] [address] Dr. Ember Teague Hematocrit (Bld) [Volume fraction] 27.9 % Critically low 36.0-48.0 [facility] Comment on above: Performed By: #### C BC #### [facility] [address] [place] [address] Dr. Ember Teague Hemoglobin (Bld) [Mass/Vol] 9.7 g/dL Critically low 12.0-16.0 [facility] Comment on above: Performed By: #### C BC #### [facility] [address] [place] [address] Dr. Ember Teague IG # 0.01 10e3/ul Normal 0.00-0.03 [facility] Comment on above: Performed By: #### C BC #### [facility] [address] [place] [address] Dr. Ember Teague IG % 0.2 % Normal 0.0-0.5 [facility] Comment on above: Performed By: #### C BC #### [facility] [address] [place] [address] Dr. Ember Teague LYMPH # 1.9 103/ul Normal 1.2-3.8 [facility] Comment on above: Performed By: #### C BC #### [facility] [address] [place] [address] Dr. Ember Teague Lymphocytes/100 WBC (Bld) 32.2 % Normal 20.5-60.0 [facility] Comment on above: Performed By: #### C BC #### [facility] [address] [place] [address] Dr. Ember Teague MANUAL DIFF REQ NO Normal [facility] Comment on above: Performed By: #### C BC #### [facility] [address] [place] [address] Dr. Ember Teague MCH (RBC) [Entitic mass] 31.4 pg Normal 26.7-34.0 [facility] Comment on above: Performed By: #### C BC #### [facility] [address] [place] [address] Dr. Ember Teague MCHC (RBC) [Mass/Vol] 34.8 g/dL Normal 29.9-35.2 [facility] Comment on above: Performed By: #### C BC #### [facility] [address] [place] [address] Dr. Ember Teague MCV (RBC) [Entitic vol] 90.3 fL Normal 81.0-99.0 [facility] Comment on above: Performed By: #### C BC #### [facility] [address] [place] [address] Dr. Ember Teague MONO # 0.6 103/ul Normal 0.3-0.8 [facility] Comment on above: Performed By: #### C BC #### [facility] [address] [place] [address] Dr. Ember Teague Monocytes/100 WBC (Bld) 9.8 % Normal 1.7-12.0 [facility] Comment on above: Performed By: #### C BC #### [facility] [address] [place] [address] Dr. Ember Teague NEUT # 3.2 103/ul Normal 1.4-6.5 [facility] Comment on above: Performed By: #### C BC #### [facility] [address] [place] [address] Dr. Ember Teague Neutrophils/100 WBC (Bld) 53.8 % Normal 43.0-75.0 [facility] Comment on above: Performed By: #### C BC #### [facility] [address] [place] [address] Dr. Ember Teague Platelet mean volume (Bld) [Entitic vol] 10.0 fL Normal 9.5-13.5 [facility] Comment on above: Performed By: #### C BC #### [facility] [address] [place] [address] Dr. Ember Teague PLT 194 103/ul Normal 150-450 [facility] Comment on above: Performed By: #### C BC #### [facility] [address] [place] [address] Dr. Ember Teague RBC 3.09 106/ul Critically low 4.20-5.[address] [facility] Comment on above: Performed By: #### C BC #### [facility] [address] [place] [address] Dr. Ember Teague WBC 6.0 103/ul Normal 4.0-11.0 [facility] Comment on above: Performed By: #### C BC #### [facility] [address] [place] [address] Dr. Ember Teague PTH INTACTon 06-26-2022 PTH, Intact 39 pg/mL Normal 15-65 [facility] Comment on above: Performed By: #### P THINT #### [facility] [address] [place] [address] Dr. Ember Teague CBC AUTO DIFFon 06-25-2022 BASO # 0.1 103/ul Normal 0.0-0.1 [facility] Comment on above: Performed By: #### C VDTBH #### [facility] [address] [place] [address] Dr. Ember Teague Basophils/100 WBC (Bld) 0.6 % Normal 0.2-2.0 [facility] Comment on above: Performed By: #### C VDTBH #### [facility] [address] [place] [address] Dr. Ember Teague EO # 0.2 103/ul Normal 0.0-0.7 [facility] Comment on above: Performed By: #### C VDTBH #### [facility] [address] [place] [address] Dr. Ember Teague Eosinophils/100 WBC (Bld) 3.0 % Normal 0.9-7.0 [facility] Comment on above: Performed By: #### C VDTBH #### [facility] [address] [place] [address] Dr. Ember Teague Erythrocyte distribution width (RBC) [Ratio] 14.2 % Normal 11.0-15.0 [facility] Comment on above: Performed By: #### C VDTBH #### [facility] [address] [place] [address] Dr. Ember Teague Hematocrit (Bld) [Volume fraction] 30.9 % Critically low 36.0-48.0 [facility] Comment on above: Performed By: #### C VDTBH #### [facility] [address] [place] [address] Dr. Ember Teague Hemoglobin (Bld) [Mass/Vol] 10.6 g/dL Critically low 12.0-16.0 [facility] Comment on above: Performed By: #### C VDTBH #### [facility] [address] [place] [address] Dr. Ember Teague IG # 0.04 10e3/ul Critically high 0.00-0.03 [facility] Comment on above: Performed By: #### C VDTBH #### [facility] [address] [place] [address] Dr. Ember Teague IG % 0.5 % Normal 0.0-0.5 [facility] Comment on above: Performed By: #### C VDTBH #### [facility] [address] [place] [address] Dr. Ember Teague LYMPH # 2.2 103/ul Normal 1.2-3.8 [facility] Comment on above: Performed By: #### C VDTBH #### [facility] [address] [place] [address] Dr. Ember Teague Lymphocytes/100 WBC (Bld) 27.0 % Normal 20.5-60.0 [facility] Comment on above: Performed By: #### C VDTBH #### [facility] [address] [place] [address] Dr. Ember Teague MANUAL DIFF REQ NO Normal [facility] Comment on above: Performed By: #### C VDTBH #### [facility] [address] [place] [address] Dr. Ember Teague MCH (RBC) [Entitic mass] 31.2 pg Normal 26.7-34.0 [facility] Comment on above: Performed By: #### C VDTBH #### [facility] [address] [place] [address] Dr. Ember Teague MCHC (RBC) [Mass/Vol] 34.3 g/dL Normal 29.9-35.2 [facility] Comment on above: Performed By: #### C VDTBH #### [facility] [address] [place] [address] Dr. Ember Teague MCV (RBC) [Entitic vol] 90.9 fL Normal 81.0-99.0 [facility] Comment on above: Performed By: #### C VDTBH #### [facility] [address] [place] [address] Dr. Ember Teague MONO # 0.7 103/ul Normal 0.3-0.8 [facility] Comment on above: Performed By: #### C VDTBH #### [facility] [address] [place] [address] Dr. Ember Teague Monocytes/100 WBC (Bld) 9.2 % Normal 1.7-12.0 [facility] Comment on above: Performed By: #### C VDTBH #### [facility] [address] [place] [address] Dr. Ember Teague NEUT # 4.8 103/ul Normal 1.4-6.5 [facility] Comment on above: Performed By: #### C VDTBH #### [facility] [address] [place] [address] Dr. Ember Teague Neutrophils/100 WBC (Bld) 59.7 % Normal 43.0-75.0 [facility] Comment on above: Performed By: #### C VDTB #### [facility] [address] [place] [address] Dr. Ember Teague Platelet mean volume (Bld) [Entitic vol] 9.3 fL Critically low 9.5-13.5 [facility] Comment on above: Performed By: #### C VDTBH #### [facility] [address] [place] [address] Dr. Ember Teague PLT 227 103/ul Normal 150-450 [facility] Comment on above: Performed By: #### C VDTBH #### [facility] [address] [place] [address] Dr. Ember Teague RBC 3.40 106/ul Critically low 4.20-5.[address] [facility] Comment on above: Performed By: #### C VDTBH #### [facility] [address] [place] [address] Dr. Ember Teague WBC 8.0 103/ul Normal 4.0-11.0 [facility] Comment on above: Performed By: #### [facility] #### [facility] [address] [address] [address] Ember Teague MRI LSPINE WO CONon [...] by: YANET HUERTA Date: 2022-06-25 08:45 Normal [facility] RENAL FUNCTION PANELon 06-25 Albumin [Mass/Vol] 3.9 g/dL Normal 3.4-5.0 [facility] Comment on above: Performed By: #### P THINT #### [facility] [address] [address] [address] Ember Teague Calcium [Mass/Vol] 9.5 mg/dL Normal 8.5-10.1 [facility] Comment on above: Performed By: #### P THINT #### [facility] [address] [address] [address] Ember Teague Chloride [Moles/Vol] 102 mmol/L Normal 98-107 [facility] Comment on above: Performed By: #### P THINT #### [facility] [address] [address] [address] Ember Teague CO2 [Moles/Vol] 23.8 mmol/L Normal 21.0-32.0 [facility] Comment on above: Performed By: #### P THINT #### [facility] [address] [place] [address] Dr. Ember Teague Creatinine [Mass/Vol] 1.75 mg/dL Critically high 0.55-1.02 [facility] Comment on above: Performed By: #### P THINT #### [facility] [address] [address] [address] Ember Teague EGFR-AF MONTENEGRIN 34 mL/min/1.73m2 Critically low >=60 [facility] Comment on above: Performed By: #### P THINT #### [facility] [address] [place] [address] Dr. Ember Teague EGFR-NON AF MONTENEGRIN 28 mL/min/1.73m2 Critically low >=60 [facility] Comment on above: Performed By: #### P THINT #### [facility] [address] [address] [address] Ember Teague Glucose [Mass/Vol] 199 mg/dL Critically high 74-106 [facility] Comment on above: Performed By: #### P THINT #### [facility] [address] [address] [address] Ember Teague Phosphate [Mass/Vol] 4.3 mg/dL Normal 2.6-4.7 [facility] Comment on above: Performed By: #### P THINT #### [facility] [address] [place] [address] Dr. Ember Teague Potassium [Moles/Vol] 4.9 mmol/L Normal 3.5-5.1 [facility] Comment on above: Performed By: #### P THINT #### [facility] [address] [place] [address] Dr. Ember Teague Sodium [Moles/Vol] 135 mmol/L Critically low 136-145 [facility] Comment on above: Performed By: #### P THINT #### [facility] [address] [place] [address] Dr. Ember Teague Urea nitrogen [Mass/Vol] 34.0 mg/dL Critically high 7.0-18.0 [facility] Comment on above: Performed By: #### P THINT #### [facility] [address] [place] [address] Dr. Ember Teague VITAMIN D 25 OHon 06-25-2022 VIT D 25-OH 40.6 ng/mL Normal [facility] Comment on above: Performed By: #### P THINT #### [facility] [address] [place] [address] Dr. Emebr Teague VIT D RANGES SEE BELOW Normal [facility] Comment on above: Result Comment: <20 ng/mL Vit D deficient 20 - <30 ng/mL Vit D insufficient 30 - 100 ng/mL Vit D sufficient >100 ng/mL Potential Toxicity Performed By: #### P THINT #### [facility] [address] [place] [address] Dr. Ember Teague Covid-19 PCR (CVDTBH)on 06-07 SARS-CoV-2 (COVID-19) RNA ALEXX+probe Ql (Unsp spec) Not detected Normal NOT DETECTED [facility] Comment on above: Result Comment: This test is not yet approved or cleared by the [place] FDA. When there are no FDA-approved or cleared tests available, and other criteria are met, FDA can make tests available under an emergency access mechanism called an Emergency Use Authorization (EUA). The EUA for this test is supported by the [employer] of Health and Human Service's (HHS's) declaration [...] with SARS-CoV-2. Performed By: #### C [facility] #### [facility] [address] [place] [address] LSPINE WO CONon [...] YANET HUERTA Date: 2022-06-01 18:02 Normal [facility] XR LSPINE MIN 4 VIEWSon [...] by: YANET HUERTA Date: 2022-05-21 15:25 Normal [facility] PTH INTACTon 05-03-2022 PTH, Intact 60 pg/mL Normal 15-65 [facility] Comment on above: Performed By: #### C VDTBH #### [facility] [address] [address] [address] Ember Teague VIT D 25-OH LABCORPon 2021 Vitamin D, 25-Hydroxy 26.1 ng/mL Critically low 30.0-100.0 [facility] Comment on above: Result Comment: Sara min D deficiency has been defined by the [place] of [employer] and an Endocrine Society practice guideline as a level of serum 25-OH vitamin D less than 20 ng/mL (1,2). The Endocrine Society went on to further define vitamin D insufficiency as a level between 21 and 29 ng/mL (2). 1. IOM ([place] of [employer]). 2010. Dietary reference intakes for calcium and D. [place]: The National Academies Press. 2. Sherice MF, Wendy [place], Huan ZHONG, et al. Evaluation, treatment, and prevention of vitamin D deficiency: an Endocrine Society clinical practice guideline. JCEM. 2010; 96(7):1911-30. Performed By: #### R ENAL #### [facility] [address] [address] [address] Ember Teague FERRITINon 05-02-2022 Ferritin [Mass/Vol] 590.0 ng/mL Critically high 8.0-252.0 [facility] Comment on above: Performed By: #### R ENAL #### [facility] [address] [place] [address] Dr. Ember Teague HEMOGRAM AND PLATELon 2021 Hematocrit (Bld) [Volume fraction] 28.4 % Critically low 36.0-48.0 [facility] Comment on above: Performed By: #### C VDTBH #### [facility] [address] [place] [address] Dr. Ember Teague Hemoglobin (Bld) [Mass/Vol] 9.6 g/dL Critically low 12.0-16.0 [facility] Comment on above: Performed By: #### C VDTBH #### [facility] [address] [place] [address] Dr. Ember Teague MCH (RBC) [Entitic mass] 31.0 pg Normal 26.7-34.0 [facility] Comment on above: Performed By: #### C VDTBH #### [facility] [address] [place] [address] Dr. Ember Teague MCHC (RBC) [Mass/Vol] 33.8 g/dL Normal 29.9-35.2 [facility] Comment on above: Performed By: #### C VDTBH #### [facility] [address] [place] [address] Dr. Ember Teague MCV (RBC) [Entitic vol] 91.6 fL Normal 81.0-99.0 [facility] Comment on above: Performed By: #### C VDTBH #### [facility] [address] [place] [address] Dr. Ember Teague PLT 189 103/ul Normal 150-450 [facility] Comment on above: Performed By: #### C VDTBH #### [facility] [address] [place] [address] Dr. Ember Teague RBC 3.10 106/ul Critically low 4.20-5.[address] [facility] Comment on above: Performed By: #### C VDTBH #### [facility] [address] [address] [address] Ember Teague WBC 6.2 103/ul Normal 4.0-11.0 [facility] Comment on above: Performed By: #### C VDTBH #### [facility] [address] [place] [address] Dr. Ember Teague IRON AND TIBCon 05-02-2022 % SATURATION 34.3 % Normal [facility] Comment on above: Performed By: #### R ENAL #### [facility] [facility] [address] [place] [address] Dr. Ember Teague Iron [Mass/Vol] 69.0 ug/dL Normal 50.0-170.0 The [facility] Comment on above: Performed By: #### R ENAL #### [facility] [address] [place] [address] Dr. Ember Teague TIBC DIRECT 201.0 ug/dL Critically low 250.0-450.0 [facility] Comment on above: Performed By: #### R ENAL #### [facility] [address] [address] [address] Ember Teague MAGNESIUMon 05-02-2022 Magnesium [Mass/Vol] 1.7 mg/dL Critically low 1.8-2.4 [facility] Comment on above: Performed By: #### C VDTBH #### [facility] [address] [place] [address] Dr. Ember Teague RENAL FUNCTION PANELon 05-02 Albumin [Mass/Vol] 3.6 g/dL Normal 3.4-5.0 The [facility] Comment on above: Performed By: #### C VDTBH #### [facility] [address] [place] [address] Dr. Ember Teague Calcium [Mass/Vol] 9.2 mg/dL Normal 8.5-10.1 The [facility] Comment on above: Performed By: #### C VDTBH #### [facility] [address] [place] [address] Dr. Ember Teague Chloride [Moles/Vol] 107 mmol/L Normal 98-107 [facility] Comment on above: Performed By: #### C VDTBH #### [facility] [address] [place] [address] Dr. Ember Teague CO2 [Moles/Vol] 21.2 mmol/L Normal 21.0-32.0 [facility] Comment on above: Performed By: #### C VDTBH #### [facility] [address] [place] [address] Dr. Ember Teague Creatinine [Mass/Vol] 1.75 mg/dL Critically high 0.55-1.02 [facility] Comment on above: Performed By: #### C VDTBH #### [facility] [address] [place] [address] Dr. Ember Teague EGFR-AF MONTENEGRIN 34 mL/min/1.73m2 Critically low >=60 [facility] Comment on above: Performed By: #### C VDTBH #### [facility] [address] [place] [address] Dr. Ember Teague EGFR-NON AF MONTENEGRIN 28 mL/min/1.73m2 Critically low >=60 [facility] Comment on above: Performed By: #### C VDTBH #### [facility] [address] [place] [address] Dr. Ember Teague Glucose [Mass/Vol] 193 mg/dL Critically high 74-106 [facility] Comment on above: Performed By: #### C VDTBH #### [facility] [address] [place] [address] Dr. Ember Teague Phosphate [Mass/Vol] 4.2 mg/dL Normal 2.6-4.7 [facility] Comment on above: Performed By: #### C VDTBH #### [facility] [address] [place] [address] Dr. Ember Teague Potassium [Moles/Vol] 5.1 mmol/L Normal 3.5-5.1 [facility] Comment on above: Performed By: #### C VDTBH #### [facility] [address] [place] [address] Dr. Ember Teague Sodium [Moles/Vol] 139 mmol/L Normal 136-145 [facility] Comment on above: Performed By: #### C VDTBH #### [facility] [address] [place] [address] Dr. Ember Teague Urea nitrogen [Mass/Vol] 34.0 mg/dL Critically high 7.0-18.0 [facility] Comment on above: Performed By: #### C VDTBH #### [facility] [address] [place] [address] Dr. Ember Teague UA RANDOM W/MICROSCOPICon BACTERIA SMALL Abnormal NONE SEEN [facility] Comment on above: Performed By: #### C VDTBH #### [facility] [address] [place] [address] Dr. Ember Teague Bilirubin Ql (U) Negative Normal NEGATIVE [facility] Comment on above: Performed By: #### C VDTBH #### [facility] [address] [place] [address] Dr. Ember Teague CAST NONE SEEN Normal NONE SEEN [facility] Comment on above: Performed By: #### C VDTBH #### [facility] [address] [place] [address] Dr. Ember Teague Clarity (U) CLEAR Normal CLEAR [facility] Comment on above: Performed By: #### C VDTBH #### [facility] [address] [place] [address] Dr. Ember Teague Color (U) LT. YELLOW Normal YELLOW [facility] Comment on above: Performed By: #### C VDTBH #### [facility] [address] [place] [address] Dr. Ember Teague Crystals LM Nom (Urine sed) NONE SEEN Normal NONE SEEN [facility] Comment on above: Performed By: #### C VDTBH #### [facility] [address] [place] [address] Dr. Ember Teague Epithelial cells LM Ql (Urine sed) MODERATE Abnormal NONE SEEN /RARE [facility] Comment on above: Performed By: #### C VDTBH #### [facility] [address] [place] [address] Dr. Ember Tegaue Glucose Ql (U) Negative Normal NEGATIVE [facility] Comment on above: Performed By: #### C VDTBH #### [facility] [address] [place] [address] Dr. Ember Teague Hemoglobin Ql (U) Negative Normal NEGATIVE [facility] Comment on above: Performed By: #### C VDTBH #### [facility] [address] [place] [address] Dr. Ember Teague Ketones Ql (U) Negative Normal NEGATIVE [facility] Comment on above: Performed By: #### C VDTBH #### [facility] [address] [place] [address] Dr. Ember Teague LEUKOCYTES TRACE Abnormal NEGATIVE [facility] Comment on above: Performed By: #### C VDTBH #### [facility] [address] [place] [address] Dr. Ember Teague MUCOUS NONE SEEN Normal NONE SEEN [facility] Comment on above: Performed By: #### C VDTBH #### [facility] [address] [place] [address] Dr. Ember Teague Nitrite Ql (U) Negative Normal NEGATIVE [facility] Comment on above: Performed By: #### C VDTBH #### [facility] [address] [place] [address] Dr. Ember Teague pH (U) 5.0 [pH] Normal 5-9 [facility] Comment on above: Performed By: #### C VDTBH #### [facility] [address] [place] [address] Dr. Ember Teague RBC NONE SEEN Abnormal 0-2 [facility] Comment on above: Performed By: #### C VDTBH #### [facility] [address] [place] [address] Dr. Ember Teague SPEC GRAVITY 1.015 Normal 1.005-<=1.025 [facility] Comment on above: Performed By: #### C VDTBH #### [facility] [address] [place] [address] Dr. Ember Teague UA PROTEIN TRACE Normal NEGATIVE/ TRACE [facility] Comment on above: Performed By: #### C VDTBH #### [facility] [address] [place] [address] Dr. Ember Teague Urobilinogen Qn (U) 0.2 {Esau'U}/dL Normal 0.2 - 1. 0 [facility] Comment on above: Performed By: #### C VDTBH #### [facility] [address] [place] [address] Dr. Ember Teague WBC 0-2 Abnormal NONE SEEN [facility] Comment on above: Performed By: #### C VDTBH #### [facility] [address] [place] [address] Dr. Ember Teague URIC ACID SERUMon 05-02-2022 Urate [Mass/Vol] 4.4 mg/dL Normal 2.6-6.0 [facility] Comment on above: Performed By: #### C #### [facility] [address] [place] [address] Dr. Ember Teague URINE T PROTEIN CREAT RATIOo n 05-02-2022 Protein (U) [Mass/Vol] 33.7 mg/dL Critically high <=12.0 [facility] Comment on above: Performed By: #### C VDTBH #### [facility] [address] [place] [address] Dr. Ember Teague UR PROT CREAT RAT 0.69 Normal [facility] Comment on above: Performed By: #### C VDTBH #### [facility] [address] [place] [address] Dr. Ember Teague URINE CREAT 48.93 mg/dL Normal 20.00-300.[address] [facility] Comment on above: Performed By: #### C VDTBH #### [facility] [address] [place] [address] Dr. Ember Teague Vital Signs Date Time Vital Sign Value Performing Clinician Facility 06-14-2025 10:11-0400 Body height 163.8 cm Lorraine Mayer MD Work Phone: [facility] 06-14-2025 10:11-0400 Body mass index (BMI) [Ratio] 32.28 kg/m2 Lorraine Mayer MD Work Phone: [facility] 06-14-2025 10:11-0400 Body weight 86.64 kg Lorraine Mayer MD Work Phone: [facility] 06-14-2025 10:11-0400 Diastolic blood pressure 74 mm[Hg] Lorraine Mayer MD Work Phone: [facility] 06-14-2025 10:11-0400 Heart rate 68 /min Lorraine Mayer MD Work Phone: [facility] 06-14-2025 10:11-0400 Respiratory rate 16 /min Lorraine Mayer MD Work Phone: [facility] 06-14-2025 10:11-0400 SaO2% (BldA) [Mass fraction] 97 % Lorraine Mayer MD Work Phone: [facility] 06-14-2025 10:11-0400 Systolic blood pressure 124 mm[Hg] Lorraine Mayer MD Work Phone: [facility] 02-15-2025 09:51-0400 Body height 168.9 cm Lorraine Mayer MD Work Phone: [facility] 02-15-2025 09:51-0400 Body mass index (BMI) [Ratio] 31 kg/m2 Lorraine Mayer MD Work Phone: [facility] 02-15-2025 09:51-0400 Body weight 88.45 kg Lorraine Mayer MD Work Phone: [facility] 02-15-2025 09:51-0400 Diastolic blood pressure 62 mm[Hg] Lorraine Mayer MD Work Phone: [facility] 02-15-2025 09:51-0400 Heart rate 63 /min Lorraine Mayer MD Work Phone: [facility] 02-15-2025 09:51-0400 Respiratory rate 16 /min Lorraine Mayer MD Work Phone: [facility] 02-15-2025 09:51-0400 SaO2% (BldA) [Mass fraction] 97 % Lorraine Mayer MD Work Phone: [facility] 02-15-2025 09:51-0400 Systolic blood pressure 132 mm[Hg] Lorraine Mayer MD Work Phone: [facility] 01-14-2025 09:15-0400 Body height 168.[address] [facility] 01-14-2025 09:15-0400 Body mass index (BMI) [Ratio] 30.8 kg/m2 [facility] 01-14-2025 09:15-0400 Body temperature 98.2 [degF] [facility] 01-14-2025 09:15-0400 Body weight 88.[address] [facility] 01-14-2025 09:15-0400 Diastolic blood pressure 58 mm[Hg] [facility] 01-14-2025 09:15-0400 Heart rate 65 /min [facility] 01-14-2025 09:15-0400 Respiratory rate 16 /min [facility] 01-14-2025 09:15-0400 SaO2% (BldA) [Mass fraction] 98 % [facility] 01-14-2025 09:15-0400 Systolic blood pressure 128 mm[Hg] [facility] 11-16-2024 09:49-0500 Body height 168.9 cm Lorraine Mayer MD Work Phone: [facility] 11-16-2024 09:49-0500 Body mass index (BMI) [Ratio] 30.53 kg/m2 Lorraine Mayer MD Work Phone: [facility] 11-16-2024 09:49-0500 Body weight 87.09 kg Lorraine Mayer MD Work Phone: [facility] 11-16-2024 09:49-0500 Diastolic blood pressure 80 mm[Hg] Lorraine Mayer MD Work Phone: [facility] 11-16-2024 09:49-0500 Heart rate 62 /min Lorraine Mayer MD Work Phone: [facility] 11-16-2024 09:49-0500 Respiratory rate 16 /min Lorraine Mayer MD Work Phone: [facility] 11-16-2024 09:49-0500 SaO2% (BldA) [Mass fraction] 97 % Lorraine Mayer MD Work Phone: [facility] 11-16-2024 09:49-0500 Systolic blood pressure 130 mm[Hg] Lorraine Mayer MD Work Phone: [facility] 01-17-2024 12:56-0400 Body height 168.9 cm Thuan Lucas MD Work Phone: [facility] 01-17-2024 12:56-0400 Body mass index (BMI) [Ratio] 30.05 kg/m2 Thuan Lucas MD Work Phone: [facility] 01-17-2024 12:56-0400 Body weight 85.73 kg Thuan Lucas MD Work Phone: [facility] 01-17-2024 12:56-0400 Diastolic blood pressure 70 mm[Hg] Thuan Lucas MD Work Phone: [facility] 01-17-2024 12:56-0400 Heart rate 60 /min Thuan Lucas MD Work Phone: [facility] 01-17-2024 12:56-0400 SaO2% (BldA) [Mass fraction] 98 % Thuan Lucas MD Work Phone: [facility] 01-17-2024 12:56-0400 Systolic blood pressure 180 mm[Hg] Thuan Lucas MD Work Phone: [facility] 11-18-2023 10:00-0500 Body height 168.91 cm Ron Doreen Other [employer] Other 11-18-2023 10:00-0500 Body mass index (BMI) [Ratio] 29.85 kg/m2 Ron Doreen Other [employer] Other 11-18-2023 10:00-0500 Body temperature 97.3 [degF] Ron Doreen Other [employer] Other 11-18-2023 10:00-0500 Body weight 85.19 kg Ron Doreen Other [employer] Other 11-18-2023 10:00-0500 Diastolic blood pressure 79 mm[Hg] Ron Doreen Other [employer] Other 11-18-2023 10:00-0500 Respiratory rate 18 /min Ron Doreen Other [employer] Other 11-18-2023 10:00-0500 SaO2% (BldA) [Mass fraction] 98 % Ron Doreen Other [employer] Other 11-18-2023 10:00-0500 Systolic blood pressure 149 mm[Hg] Ron Doreen Other [employer] Other 11-04-2023 11:00-0500 Body height 168.91 cm Ron Doreen Other [employer] Other 11-04-2023 11:00-0500 Body mass index (BMI) [Ratio] 30.17 kg/m2 Ron Doreen Other [employer] Other 11-04-2023 11:00-0500 Body temperature 97.6 [degF] Ron Doreen Other [employer] Other 11-04-2023 11:00-0500 Body weight 86.09 kg Ron Doreen Other [employer] Other 11-04-2023 11:00-0500 Diastolic blood pressure 76 mm[Hg] Ron Doreen Other [employer] Other 11-04-2023 11:00-0500 Respiratory rate 18 /min Ron Doreen Other [employer] Other 11-04-2023 11:00-0500 SaO2% (BldA) [Mass fraction] 98 % Ron Doreen Other [employer] Other 11-04-2023 11:00-0500 Systolic blood pressure 153 mm[Hg] Ron Doreen Other [employer] Other 10-15-2023 13:00-0500 Body height 168.91 cm Ron Doreen Other [employer] Other 10-15-2023 13:00-0500 Body mass index (BMI) [Ratio] 29.82 kg/m2 Ron Doreen Other [employer] Other 10-15-2023 13:00-0500 Body temperature 97.5 [degF] Ron Doreen Other [employer] Other 10-15-2023 13:00-0500 Body weight 85.1 kg Ron Doreen Other [employer] Other 10-15-2023 13:00-0500 Diastolic blood pressure 68 mm[Hg] Ron Doreen Other [employer] Other 10-15-2023 13:00-0500 Respiratory rate 18 /min Ron Doreen Other [employer] Other 10-15-2023 13:00-0500 SaO2% (BldA) [Mass fraction] 98 % Ron Doreen Other [employer] Other 10-15-2023 13:00-0500 Systolic blood pressure 113 mm[Hg] Ron Doreen Other [employer] Other 08-27-2023 09:40-0500 Body height 168.91 cm Mary Anne [employer] Other [employer] Other 08-27-2023 09:40-0500 Body mass index (BMI) [Ratio] 30.2 kg/m2 [employer] Other [employer] Other 08-27-2023 09:40-0500 Body temperature 96.7 [degF] Óscariz [employer] Other [employer] Other 08-27-2023 09:40-0500 Body weight 86.18 kg Aziz [employer] Other [employer] Other 08-27-2023 09:40-0500 Diastolic blood pressure 72 mm[Hg] [employer] [employer] Other [employer] Other 08-27-2023 09:40-0500 Respiratory rate 18 /min Mary Anne Ackerman Other [employer] Other 08-27-2023 09:40-0500 SaO2% (BldA) [Mass fraction] 98 % Mary Anne Ackerman Other [employer] Other 08-27-2023 09:40-0500 Systolic blood pressure 153 mm[Hg] Mary Anne Ackerman Other [employer] Other 08-15-2023 10:20-0500 Body height 168.91 cm Ron Doreen Other [employer] Other 08-15-2023 10:20-0500 Body mass index (BMI) [Ratio] 30.2 kg/m2 Ron Doreen Other [employer] Other 08-15-2023 10:20-0500 Body temperature 97.1 [degF] Ron Doreen Other [employer] Other 08-15-2023 10:20-0500 Body weight 86.18 kg Ron Doreen Other [employer] Other 08-15-2023 10:20-0500 Diastolic blood pressure 79 mm[Hg] Ron Doreen Other [employer] Other 08-15-2023 10:20-0500 Respiratory rate 18 /min Ron Doreen Other [employer] Other 08-15-2023 10:20-0500 SaO2% (BldA) [Mass fraction] 98 % Ron Doreen Other [employer] Other 08-15-2023 10:20-0500 Systolic blood pressure 164 mm[Hg] Ron Doreen Other [employer] Other 08-13-2023 15:40-0500 Body height 168.91 cm Ron Doreen Other [employer] Other 08-13-2023 15:40-0500 Body mass index (BMI) [Ratio] 30.24 kg/m2 Ron Doreen Other [employer] Other 08-13-2023 15:40-0500 Body temperature 97.2 [degF] Ron Doreen Other [employer] Other 08-13-2023 15:40-0500 Body weight 86.27 kg Ron Doreen Other [employer] Other 08-13-2023 15:40-0500 Diastolic blood pressure 79 mm[Hg] Ron Doreen Other [employer] Other 08-13-2023 15:40-0500 Respiratory rate 18 /min Ron Doreen Other [employer] Other 08-13-2023 15:40-0500 SaO2% (BldA) [Mass fraction] 98 % Ron Doreen Other [employer] Other 08-13-2023 15:40-0500 Systolic blood pressure 186 mm[Hg] Ron Doreen Other [employer] Other 08-01-2023 13:00-0400 Body height 168.91 cm Ron Doreen Other [employer] Other 08-01-2023 13:00-0400 Body mass index (BMI) [Ratio] 30.55 kg/m2 Ron Doreen Other [employer] Other 08-01-2023 13:00-0400 Body temperature 97.8 [degF] Ron Doreen Other [employer] Other 08-01-2023 13:00-0400 Body weight 87.18 kg Ron Doreen Other [employer] Other 08-01-2023 13:00-0400 Diastolic blood pressure 72 mm[Hg] Ron Doreen Other [employer] Other 08-01-2023 13:00-0400 Respiratory rate 18 /min Ron Doreen Other [employer] Other 08-01-2023 13:00-0400 SaO2% (BldA) [Mass fraction] 98 % Ron Doreen Other [employer] Other 08-01-2023 13:00-0400 Systolic blood pressure 160 mm[Hg] Ron Doreen Other [employer] Other 06-24-2023 11:40-0400 Body height 168.91 cm Ron Doreen Other [employer] Other 06-24-2023 11:40-0400 Body mass index (BMI) [Ratio] 29.89 kg/m2 Ron Doreen Other [employer] Other 06-24-2023 11:40-0400 Body temperature 97.3 [degF] Ron Doreen Other [employer] Other 06-24-2023 11:40-0400 Body weight 85.28 kg Ron Doreen Other [employer] Other 06-24-2023 11:40-0400 Diastolic blood pressure 75 mm[Hg] Ron Doreen Other [employer] Other 06-24-2023 11:40-0400 Respiratory rate 18 /min Ron Doreen Other [employer] Other 06-24-2023 11:40-0400 SaO2% (BldA) [Mass fraction] 99 % Ron Doreen Other [employer] Other 06-24-2023 11:40-0400 Systolic blood pressure 129 mm[Hg] Ron Doreen Other [employer] Other 06-06-2023 15:20-0400 Body height 168.91 cm Ron Doreen Other [employer] Other 06-06-2023 15:20-0400 Body mass index (BMI) [Ratio] 29.92 kg/m2 Ron Doreen Other [employer] Other 06-06-2023 15:20-0400 Body temperature 96.5 [degF] Ron Doreen Other [employer] Other 06-06-2023 15:20-0400 Body weight 85.37 kg Ron Doreen Other [employer] Other 06-06-2023 15:20-0400 Diastolic blood pressure 49 mm[Hg] Ron Doreen Other [employer] Other 06-06-2023 15:20-0400 Respiratory rate 18 /min Ron Doreen Other [employer] Other 06-06-2023 15:20-0400 SaO2% (BldA) [Mass fraction] 99 % Ron Doreen Other [employer] Other 06-06-2023 15:20-0400 Systolic blood pressure 128 mm[Hg] Ron Doreen Other [employer] Other 04-30-2023 11:40-0400 Body height 168.91 cm Ron Doreen Other [employer] Other 04-30-2023 11:40-0400 Body mass index (BMI) [Ratio] 30.52 kg/m2 Ron Doreen Other [employer] Other 04-30-2023 11:40-0400 Body temperature 96.9 [degF] Ron Doreen Other [employer] Other 04-30-2023 11:40-0400 Body weight 87.09 kg Ron Doreen Other [employer] Other 04-30-2023 11:40-0400 Diastolic blood pressure 80 mm[Hg] Ron Doreen Other [employer] Other 04-30-2023 11:40-0400 Respiratory rate 18 /min Ron Doreen Other [employer] Other 04-30-2023 11:40-0400 SaO2% (BldA) [Mass fraction] 98 % Ron Doreen Other [employer] Other 04-30-2023 11:40-0400 Systolic blood pressure 150 mm[Hg] Ron Doreen Other [employer] Other 04-06-2023 09:00-0400 Body height 168.91 cm Ron Doreen Other [employer] Other 04-06-2023 09:00-0400 Body mass index (BMI) [Ratio] 30.36 kg/m2 Ron Doreen Other [employer] Other 04-06-2023 09:00-0400 Body weight 86.64 kg Ron Doreen Other [employer] Other 04-06-2023 09:00-0400 Diastolic blood pressure 54 mm[Hg] Ron Doreen Other [employer] Other 04-06-2023 09:00-0400 Respiratory rate 18 /min Ron Doreen Other [employer] Other 04-06-2023 09:00-0400 SaO2% (BldA) [Mass fraction] 98 % Ron Doreen Other [employer] Other 04-06-2023 09:00-0400 Systolic blood pressure 144 mm[Hg] Ron Doreen Other [employer] Other 04-02-2023 14:40-0400 Body height 168.91 cm Ron Doreen Other [employer] Other 04-02-2023 14:40-0400 Body mass index (BMI) [Ratio] 30.55 kg/m2 Ron Doreen Other [employer] Other 04-02-2023 14:40-0400 Body temperature 97 [degF] Ron Doreen Other [employer] Other 04-02-2023 14:40-0400 Body weight 87.18 kg Ron Doreen Other [employer] Other 04-02-2023 14:40-0400 Diastolic blood pressure 76 mm[Hg] Ron Doreen Other [employer] Other 04-02-2023 14:40-0400 Respiratory rate 18 /min Ron Doreen Other [employer] Other 04-02-2023 14:40-0400 SaO2% (BldA) [Mass fraction] 98 % Ron Doreen Other [employer] Other 04-02-2023 14:40-0400 Systolic blood pressure 183 mm[Hg] Ron Doreen Other [employer] Other 03-07-2023 09:20-0400 Body height 168.91 cm Ron Doreen Other [employer] Other 03-07-2023 09:20-0400 Body mass index (BMI) [Ratio] 30.52 kg/m2 Ron Doreen Other [employer] Other 03-07-2023 09:20-0400 Body temperature 97.1 [degF] Ron Doreen Other [employer] Other 03-07-2023 09:20-0400 Body weight 87.09 kg Ron Doreen Other [employer] Other 03-07-2023 09:20-0400 Diastolic blood pressure 72 mm[Hg] Ron Doreen Other [employer] Other 03-07-2023 09:20-0400 Respiratory rate 18 /min Ron Doreen Other [employer] Other 03-07-2023 09:20-0400 SaO2% (BldA) [Mass fraction] 97 % Ron Doreen Other [employer] Other 03-07-2023 09:20-0400 Systolic blood pressure 130 mm[Hg] Ron Doreen Other [employer] Other 12-20-2022 13:20-0400 Body height 168.91 cm Ron Doreen Other [employer] Other 12-20-2022 13:20-0400 Body mass index (BMI) [Ratio] 30.68 kg/m2 Ron Doreen Other [employer] Other 12-20-2022 13:20-0400 Body temperature 97.1 [degF] Ron Doreen Other [employer] Other 12-20-2022 13:20-0400 Body weight 87.54 kg Ron Doreen Other [employer] Other 12-20-2022 13:20-0400 Diastolic blood pressure 72 mm[Hg] Ron Doreen Other [employer] Other 12-20-2022 13:20-0400 Respiratory rate 18 /min Ron Doreen Other [employer] Other 12-20-2022 13:20-0400 SaO2% (BldA) [Mass fraction] 99 % Ron Doreen Other [employer] Other 12-20-2022 13:20-0400 Systolic blood pressure 139 mm[Hg] Ron Doreen Other [employer] Other 11-05-2022 14:00-0500 Body height 168.91 cm Ron Doreen Other [employer] Other 11-05-2022 14:00-0500 Body mass index (BMI) [Ratio] 30.59 kg/m2 Ron Doreen Other [employer] Other 11-05-2022 14:00-0500 Body temperature 96.8 [degF] Ron Doreen Other [employer] Other 11-05-2022 14:00-0500 Body weight 87.27 kg Ron Doreen Other [employer] Other 11-05-2022 14:00-0500 Diastolic blood pressure 72 mm[Hg] Ron Doreen Other [employer] Other 11-05-2022 14:00-0500 Respiratory rate 18 /min Ron Doreen Other [employer] Other 11-05-2022 14:00-0500 SaO2% (BldA) [Mass fraction] 98 % Ron Doreen Other [employer] Other 11-05-2022 14:00-0500 Systolic blood pressure 157 mm[Hg] Ron Doreen Other [employer] Other 09-27-2022 16:00-0500 Body height 168.91 cm Jana De La Rosamiller Other [employer] Other 09-27-2022 16:00-0500 Body mass index (BMI) [Ratio] 30.55 kg/m2 Jana De La Rosamiller Other [employer] Other 09-27-2022 16:00-0500 Body temperature 96.8 [degF] Jnaa Iona Other [employer] Other 09-27-2022 16:00-0500 Body weight 87.18 kg Jana De La Rosamiller Other [employer] Other 09-27-2022 16:00-0500 Diastolic blood pressure 73 mm[Hg] Jana Iona Other [employer] Other 09-27-2022 16:00-0500 Respiratory rate 18 /min Jana Iona Other [employer] Other 09-27-2022 16:00-0500 SaO2% (BldA) [Mass fraction] 98 % Jana Iona Other [employer] Other 09-27-2022 16:00-0500 Systolic blood pressure 159 mm[Hg] Jana Monson Other [employer] Other 08-22-2022 12:00-0500 Body height 168.91 cm Ron Doreen Other [employer] Other 08-22-2022 12:00-0500 Body mass index (BMI) [Ratio] 30.65 kg/m2 Ron Doreen Other [employer] Other 08-22-2022 12:00-0500 Body temperature 96.9 [degF] Ron Doreen Other [employer] Other 08-22-2022 12:00-0500 Body weight 87.45 kg Ron Doreen Other [employer] Other 08-22-2022 12:00-0500 Diastolic blood pressure 75 mm[Hg] Ron Doreen Other [employer] Other 08-22-2022 12:00-0500 Respiratory rate 18 /min Ron Doreen Other [employer] Other 08-22-2022 12:00-0500 SaO2% (BldA) [Mass fraction] 96 % Ron Doreen Other [employer] Other 08-22-2022 12:00-0500 Systolic blood pressure 121 mm[Hg] Ron Doreen Other [employer] Other 05-08-2022 10:20-0400 Body height 168.91 cm Ron Doreen Other [employer] Other 05-08-2022 10:20-0400 Body mass index (BMI) [Ratio] 31.54 kg/m2 Ron Doreen Other [employer] Other 05-08-2022 10:20-0400 Body temperature 97.6 [degF] Ron Doreen Other [employer] Other 05-08-2022 10:20-0400 Body weight 89.99 kg Ron Doreen Other [employer] Other 05-08-2022 10:20-0400 Diastolic blood pressure 68 mm[Hg] Ron Doreen Other [employer] Other 05-08-2022 10:20-0400 Respiratory rate 18 /min Ron Doreen Other [employer] Other 05-08-2022 10:20-0400 SaO2% (BldA) [Mass fraction] 98 % Ron Doreen Other [employer] Other 05-08-2022 10:20-0400 Systolic blood pressure 131 mm[Hg] Ron Doreen Other [employer] Other 01-18-2022 10:20-0400 Body height 168.91 cm Ron Doreen Other [employer] Other 01-18-2022 10:20-0400 Body mass index (BMI) [Ratio] 31 kg/m2 Ron Doreen Other [employer] Other 01-18-2022 10:20-0400 Body temperature 96.4 [degF] Ron Doreen Other [employer] Other 01-18-2022 10:20-0400 Body weight 88.45 kg Ron Doreen Other [employer] Other 01-18-2022 10:20-0400 Diastolic blood pressure 74 mm[Hg] Ron Doreen Other [employer] Other 01-18-2022 10:20-0400 Respiratory rate 18 /min Ron Doreen Other [employer] Other 01-18-2022 10:20-0400 SaO2% (BldA) [Mass fraction] 97 % Ron Doreen Other [employer] Other 01-18-2022 10:20-0400 Systolic blood pressure 170 mm[Hg] Ron Doreen Other [employer] Other Encounters Encounter Date Encounter Type Care Provider Facility Start: 06-14-2025 End: 06-14-2025 BamXuehuileheet Lorraine Mayer MD [facility] Start: 06-14-2025 End: 06-14-2025 BamXuehuile[employer] Lorraine Mayer MD Work Phone: [facility] Start: 06-14-2025 End: 06-14-2025 Office outpatient visit 25 minutes Lorraine Mayer MD Work Phone: [facility] Comment on above: Type 2 diabetes diony itus with hyperglycemia, with long-term 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 (HCC) (Primary Dx); Vitamin D deficiency; Microalbuminuria; Hyperlipemia, mixed ; Insulin long-term use (HCC); Primary hypertension ; Pema's disease ; Encounter for dietary consultation; Chronic renal disease, stage IV (HCC) Start: 06-14-2025 End: 06-14-2025 ambulatory LORRAINE MAYER Not Available Start: 05-25-2025 End: 05-25-2025 ambulatory Dhruv Rubi MD Work Phone: [facility] Work Phone: Start: 05-25-2025 End: 05-25-2025 Departed Referred Dhruv Barfield MD -LAB Path Spec [facility] Start: 04-21-2025 End: 04-21-2025 ambulatory Dhruv Rubi MD Work Phone: [facility] Work Phone: Start: 04-21-2025 End: 04-21-2025 Departed Referred Dmitriy Lynne MD -LAB Path Spec [facility] Start: 03-23-2025 End: 03-23-2025 Office outpatient visit 15 minutes Greg Tineo MD Work Phone: [facility] Comment on above: Seborrheic keratosis (Primary Dx); Seborrheic keratosis, inflamed; Solar purpura; Lentigines Start: 03-23-2025 End: 03-23-2025 ambulatory GREG TINEO Not Available Start: 03-23-2025 End: 03-23-2025 Bamboo flowsviry Tineo MD Work Phone: [facility] Start: 03-23-2025 End: 03-23-2025 Bamboo flowsviry Tineo MD Work Phone: [facility] Start: 03-07-2025 End: 03-12-2025 Refill Marie GALLOWAY Work Phone: [facility] Comment on above: Med Refill Start: 02-25-2025 End: 02-25-2025 ambulatory AB [facility] Start: 02-15-2025 End: 02-15-2025 Bamboo flowsviry Mayer MD Work Phone: [facility] Start: 02-15-2025 End: 02-15-2025 Bamboo flowsheet Lorraine Mayer MD Work Phone: [facility] Start: 02-15-2025 End: 02-15-2025 Office outpatient visit 25 minutes Lorraine Mayer MD Work Phone: [facility] Comment on above: Type 2 diabetes diony itus with hyperglycemia, with long-term 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 (CMS/HCC) (Primary Dx); Vitamin D deficiency; Microalbuminuria; Hyperlipemia, mixed (CMS/HCC); Primary hypertension (CMS/HCC); Insulin long-term use (CMS/HCC); 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CMS/HCC); Encounter for dietary consultation; Chronic renal disease, stage IV ([facility]/HCC) Start: 02-15-2025 End: 02-15-2025 ambulatory LORRAINE MAYER Not Available Start: 01-14-2025 End: 01-14-2025 ambulatory [facility] Work Phone: Start: 01-14-2025 End: 01-14-2025 Patient encounter procedure [facility] Eliel Work Phone: Start: 01-05-2025 Non-patient / Non-visit [facility] Work Phone: Start: 12-21-2024 End: 12-21-2024 Telephone encounter Cary Goldman CMA [facility] Start: 12-12-2024 End: 2024 Refill Cristina Salamanca MANAGER NURSING-BIOSTATISTICS MANAGER Work Phone: [facility] Comment on above: Med Refill Start: 11-27-2024 End: 11-27-2024 ambulatory ALEJANDRO [facility] Start: 11-16-2024 End: 11-16-2024 Bamboo flowsheet Lorraine Mayer MD Work Phone: [facility] Start: 11-16-2024 End: 11-16-2024 Bamboo flowsheet Lorraine Mayer MD Work Phone: [facility] Start: 11-16-2024 End: 11-16-2024 Office outpatient visit 25 minutes Lorraine Mayer MD Work Phone: [facility] Comment on above: Type 2 diabetes diony itus with hyperglycemia, with long-term 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 ([facility]) (Primary Dx); Vitamin D deficiency; Microalbuminuria; Hyperlipemia, mixed ([facility]); Primary hypertension ([facility]); Insulin long-term use ([facility]); 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[facility]); Encounter for dietary consultation; Chronic renal disease, stage IV ([facility]) Start: 11-16-2024 End: 11-16-2024 ambulatory LORRAINE MAYER Not Available Start: 09-28-2024 End: 09-28-2024 Bamboo flowsheet Ga Lai DPM Work Phone: [facility] Start: 09-28-2024 End: 09-28-2024 Bamboo flowsheet Ga Lai DPM Work Phone: [facility] Start: 09-28-2024 End: 09-28-2024 Patient encounter procedure Ga Lai DPM Work Phone: [facility] Comment on above: Onychomycosis (Prima ry Dx); Pain in both feet; Corns and callosities; Type 2 diabetes mellitus without complication, with long-term 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 ([facility]) Start: 09-28-2024 End: 09-28-2024 ambulatory GA LAI Not Available Start: 09-05-2024 End: 09-11-2024 Refill Marie Garcia APRN-BIOSTATISTICS MANAGER Work Phone: [facility] Comment on above: Med Refill Start: 07-13-2024 End: 07-13-2024 Bamboo cornelio Mayer MD Work Phone: [facility] Start: 07-13-2024 End: 07-13-2024 Bamboo flowsheet Lorraine Mayer MD Work Phone: [facility] Start: 07-13-2024 End: 07-13-2024 Office outpatient visit 25 minutes Lorraine Mayer MD Work Phone: [facility] Comment on above: Type 2 diabetes diony itus with hyperglycemia, with long-term 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 ([facility]) (Primary Dx); Vitamin D deficiency; Microalbuminuria; Hyperlipemia, mixed ([facility]/HCC); Primary hypertension ([facility]/HCC); Insulin long-term use ([facility]); 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[facility]); Encounter for dietary consultation; Chronic renal disease, stage IV ([facility]/HCC) Start: 07-13-2024 End: 07-13-2024 ambulatory LORRAINE MAYER Not Available Start: 06-25-2024 End: 06-25-2024 Bamboo flowsheet Ga Lai DPM Work Phone: [facility] Start: 06-25-2024 End: 06-25-2024 Bamboo flowsheet Ga Lai DPM Work Phone: [facility] Start: 06-25-2024 End: 06-25-2024 Patient encounter procedure Ga Lai DPM Work Phone: [facility] Comment on above: Onychomycosis (Prima ry Dx); Pain in both feet; Corns and callosities; Type 2 diabetes mellitus without complication, with long-term 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 ([facility]) Start: 06-25-2024 End: 06-25-2024 ambulatory GA LAI Not Available Start: 06-04-2024 End: 06-04-2024 Bamboo flowsheet Greg Tineo MD Work Phone: [facility] Start: 06-04-2024 End: 06-04-2024 Bamboo flowsheet Greg Tineo MD Work Phone: [facility] Start: 06-04-2024 End: 06-04-2024 Office outpatient visit 15 minutes Greg Tineo MD Work Phone: [facility] Comment on above: Granuloma annulare ( Primary Dx) Start: 05-25-2024 End: 05-25-2024 Patient encounter procedure Greg Tineo MD Work Phone: [facility] Comment on above: Rash and other nonsp ecific skin eruption (Primary Dx) Start: 05-11-2024 End: 05-11-2024 ambulatory EHAB [facility] Start: 03-18-2024 End: 03-23-2024 Refill Marie [facility]ALLOWAY [facility] Comment on above: Med Refill Start: 01-17-2024 End: 01-17-2024 ambulatory THUAN LUCAS [facility] Start: 01-17-2024 End: 01-17-2024 Office outpatient visit 15 minutes Sarthak Rueda MD Work Phone: [facility] Comment on above: Paroxysmal atrial fi brillation (CMS-HCC) (Primary Dx); Stage 4 chronic kidney disease (CMS-HCC); 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); Other forms of angina pectoris (CMS-HCC); Essential hypertension; 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; H/O four vessel coronary artery bypass graft; Hypertensive urgency; Shortness of breath; Localized edema Start: 01-16-2024 End: 01-16-2024 Telephone encounter Cary Goldman CMA [facility] Start: 12-21-2023 Refill Luis dominique PA-C [facility] Comment on above: Med Refill Start: 11-18-2023 End: 11-18-2023 ambulatory Ron Doreen Other [employer] Other Start: 11-18-2023 Office outpatient vi sit 15 minutes Ron Doreen [facility] Start: 11-04-2023 (INJECTION) INJECTION Ron Doreen [facility] Start: 11-04-2023 End: 11-04-2023 ambulatory Ron Doreen Other [employer] Other Start: 10-15-2023 End: 10-15-2023 ambulatory Ron Doreen Other [employer] Other Start: 10-15-2023 Office outpatient vi sit 15 minutes Ron Doreen [facility] Start: 10-08-2023 End: 10-08-2023 ambulatory Aziz Bakhous Other [employer] Other Start: 10-08-2023 Telephone encounter Aziz Bakhous [facility] Start: 09-15-2023 End: 09-15-2023 ambulatory Ron Doreen Other [employer] Other Start: 09-15-2023 Telephone encounter Ron Doreen [facility] Start: 09-09-2023 End: 09-09-2023 ambulatory Ron Doreen Other [employer] Other Start: 09-09-2023 Telephone encounter Ron Doreen [facility] Start: 08-27-2023 (INJECTION) INJECTION Aziz Bakhous [facility] Start: 08-27-2023 End: 08-27-2023 ambulatory Aziz Bakhous Other [employer] Other Start: 08-15-2023 (INJECTION) INJECTION Ron Doreen [facility] Start: 08-15-2023 End: 08-15-2023 ambulatory Ron Doreen Other [employer] Other Start: 08-13-2023 (INJECTION) INJECTION Ron Doreen [facility] Start: 08-13-2023 End: 08-13-2023 ambulatory Ron Doreen Other [employer] Other Start: 08-01-2023 End: 08-01-2023 ambulatory Ron Doreen Other [employer] Other Start: 08-01-2023 Office outpatient vi sit 15 minutes Ron Doreen [facility] Start: 06-24-2023 End: 06-24-2023 ambulatory Ron Doreen Other [employer] Other Start: 06-24-2023 Office outpatient vi sit 10 minutes Ron Doreen [facility] Start: 06-06-2023 End: 06-06-2023 ambulatory Ron Doreen Other [employer] Other Start: 06-06-2023 Office outpatient vi sit 15 minutes Ron Doreen [facility] Start: 04-30-2023 End: 04-30-2023 ambulatory Ron Doreen Other [employer] Other Start: 04-30-2023 Office outpatient vi sit 15 minutes Ron Doreen [facility] Start: 04-06-2023 (INJECTION) INJECTION Ron Doreen [facility] Start: 04-06-2023 End: 04-06-2023 ambulatory Ron Doreen Other [employer] Other Start: 04-06-2023 Telephone encounter Ron Doreen [facility] Start: 04-02-2023 End: 04-02-2023 ambulatory Ron Doreen Other [employer] Other Start: 04-02-2023 Office outpatient vi sit 15 minutes Ron Doreen [facility] Start: 04-02-2023 Telephone encounter Ron Doreen [facility] Start: 03-07-2023 End: 03-07-2023 ambulatory Ron Doreen Other [employer] Other Start: 03-07-2023 Office outpatient vi sit 15 minutes Ron Doreen [facility] Start: 01-22-2023 End: 01-23-2023 ambulatory RON DOREEN Facility:[facility] Start: 12-20-2022 End: 12-20-2022 ambulatory Ron Doreen Other [employer] Other Start: 12-20-2022 Office outpatient vi sit 15 minutes Ron Doreen [facility] Start: 12-17-2022 End: 12-18-[address] DHRUV RUBI . Facility:[facility] Start: 12-10-2022 End: 12-11-2022 ambulatory RON DOREEN Facility:[facility] Start: 11-20-2022 End: 11-21-[address] BENI APARICIO Facility:[facility] Start: 11-05-2022 End: 11-05-2022 ambulatory Ron Doreen Other [employer] Other Start: 11-05-2022 Office outpatient vi sit 15 minutes Ron Doreen [facility] Start: 10-29-2022 End: 10-30-[address] JANA MONSON Facility:[facility] Start: 10-24-2022 End: 10-24-[address] LILLIAN ACOSTA . Facility:[facility] Start: 10-24-2022 End: 10-25-[address] DHRUV RUBI . Facility:[facility] Start: 09-27-2022 End: 09-27-2022 ambulatory Jana Monson Other [employer] Other Start: 09-27-2022 Office outpatient vi sit 15 minutes Jana Monson [facility] Start: 09-18-2022 End: 09-19-2022 ambulatory RON DOREEN Facility:[facility] Start: 09-11-2022 End: 09-11-[address] DHRUV RUBI . Facility:[facility] Start: 08-22-2022 End: 08-22-2022 ambulatory Ron Doreen Other [employer] Other Start: 08-22-2022 Office outpatient vi sit 15 minutes Ron Doreen [facility] Start: 08-13-2022 End: 08-14-2022 ambulatory RON DOREEN Facility:[facility] Start: 06-25-2022 End: 06-26-[address] DHRUV RUBI . Facility:[facility] Start: 06-18-2022 End: 06-18-[address] DHRUV RUBI . Facility:[facility] Start: 06-01-2022 End: 06-02-[address] YANET HUERTA Facility:[facility] Start: 05-28-2022 End: 05-28-2022 ambulatory Ron Doreen Other [employer] Other Start: 05-28-2022 Telephone encounter Ron Doreen [facility] Start: 05-21-2022 End: 05-22-[address] DHRUV RUBI . Facility:[facility] Start: 05-16-2022 End: 05-16-2022 ambulatory Ron Doreen Other [employer] Other Start: 05-16-2022 Telephone encounter Ron Doreen [facility] Start: 05-10-2022 End: 05-10-2022 ambulatory Ron Doreen Other [employer] Other Start: 05-10-2022 Telephone encounter Ron Doreen [facility] Start: 05-08-2022 End: 05-08-2022 ambulatory Ron Doreen Other [employer] Other Start: 05-08-2022 Office outpatient vi sit 25 minutes Ron Doreen [facility] Start: 05-02-2022 End: 05-03-2022 ambulatory RON DOREEN Facility: Start: 04-24-2022 End: 04-24-2022 ambulatory Mary Anne Ackerman Other [employer] Other Start: 04-24-2022 Telephone encounter Mary Anne Ackerman [facility] Start: 01-18-2022 End: 01-18-2022 ambulatory Ron Doreen Other [employer] Other Start: 01-18-2022 Office outpatient vi sit 25 minutes Ron Doreen [facility] Start: 05-21-2017 End: 05-22-2017 Ambulatory DEFAULT PHYSICIAN Facility:[facility] Procedures Date Procedure Procedure Detail Performing Clinician Start: 06-14-2025 Gluc bld gluc mntr d ev cleared fda spec home use Lorraine Mayer MD Work Phone: Start: 04-21-2025 Urine culture Dhruv moreno MD Work Phone: Start: 03-23-2025 CRYOTHERAPY SKIN LESION Greg Tineo [...] coronary artery bypass graft Marck George Lazo MANAGER NURSING-BIOSTATISTICS MANAGER Work Phone: History of coronary artery bypass grafting H/O four vessel coronary artery bypass graft Marie Garcia MANAGER NURSING-BIOSTATISTICS MANAGER Work Phone: Plan of Treatment Date Care Activity Detail Author Start: 03-23-2026 End: 03-23-2026 Patient encounter procedure [facility] Start: 09-13-2025 End: 09-13-2025 Patient encounter procedure 09/13/2025 10:50 AM EST [facility] [address] [place] [phone] Lorraine Mayer MD [address] [place] [address] [facility] Start: 06-14-2025 End: 06-14-2025 Patient encounter procedure [facility] Comment on above: Type 2 diabetes mellitus with hyperglyce constance, with long-term 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 (HCC) Start: 06-07-2025 Influenza vaccination [facility] Start: 05-25-2025 Bacteria identified in Urine by Culture Urine Culture [facility] Start: 05-25-2025 Urine culture [facility] Start: 04-21-2025 Urine culture [facility] Start: 04-21-2025 Bacteria identified in Urine by Culture Urine Culture [facility] Start: 03-23-2025 End: 03-23-2025 Patient encounter procedure 03/23/2025 2:30 PM EDT [facility] [address] [place] [address] Greg Tineo MD [address] [place] [address] Arrived JAVIER [facility] Comment on above: Arrived Start: 03-16-2025 End: 03-16-2025 Patient encounter procedure 03/16/2025 8:35 AM EDT Office Visit [facility] [address] [place] [phone] Greg Tineo MD [address] [place] [address] JAVIER [facility] Start: 02-15-2025 End: 02-15-2025 Patient encounter procedure [facility] Comment on above: Type 2 diabetes mellitus with hyperglyce constance, with long-term 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 (CMS/HCC) Start: 01-16-2025 Adult BMI Screening Adult BMI Screening [facility] Start: 01-16-2025 Tobacco Screening Tobacco Screening [facility] Start: 12-31-2024 End: 12-31-2024 Patient encounter procedure 12/31/2024 10:15 AM EDT Procedure Visit [facility] [address] [place] [phone] Ga Lai DPM [address] [place] [address] [facility] Start: 11-16-2024 End: 11-16-2024 Patient encounter procedure [facility] Comment on above: Type 2 diabetes mellitus with hyperglyce constance, with long-term 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 (CMS/HCC) Start: 09-28-2024 End: 09-28-2024 Patient encounter procedure [facility] Comment on above: Arrived Start: 07-13-2024 End: 07-13-2024 Patient encounter procedure [facility] Comment on above: Type 2 diabetes mellitus with hyperglyce constance, with long-term 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 (CMS/HCC) Start: 06-25-2024 End: 06-25-2024 Patient encounter procedure [facility] Comment on above: Arrived Start: 06-07-2024 COVID-19 Vaccine () COVID-19 Vaccine () [facility] Start: 06-07-2024 Influenza vaccination [facility] Start: 06-04-2024 End: 06-04-2024 Patient encounter procedure [facility] Comment on above: Arrived Start: 03-19-2024 Adult BMI Screening Adult BMI Screening [facility] Start: 03-19-2024 Tobacco Screening Tobacco Screening [facility] Start: 02-21-2024 End: 02-21-2024 Patient encounter procedure 02/21/2024 2:00 PM EDT Office Visit [facility] [address] [place] [phone] Thuan Lucas MD [address] [place] [address] [facility] Start: 01-24-2024 End: 01-16-2025 [...] Cardiology [address] [place] [phone] [facility] Start: 01-17-2024 End: 01-17-2024 Patient encounter procedure 01/17/2024 1:00 PM EDT Office Visit [facility] [address] [place] [phone] Sarthak Rueda MD [address] [place] [address] Thuan Lucas MD [address] [place] [address] [facility] Start: 06-07-2023 COVID-19 Vaccine ( season) COVID-19 Vaccine () [facility] Start: 06-07-2023 Influenza vaccination Influenza Vaccine [facility] Start: 12-28-2021 Depression Screening Depression Screening [facility] Start: 2009 Fall Risk Screening Fall Risk Screening [facility] Start: 1994 Administration of varicella zoster vaccine Zoster (Shingles) Vaccine (1 of 2) [facility] Start: 12-15-1963 DTaP,Tdap and Td Vaccines (1 - Tdap) DTaP,Tdap and Td Vaccines (1 - Tdap) [facility] Start: 1962 Adult BMI Follow Up Plan Adult BMI Follow Up Plan [facility] Start: 1956 Depression Screening Depression Screening [facility] Start: 1944 Medicare Annual Wellness Visit Medicare Annual Wellness Visit [facility] Dermatopathology exam Dermatopat hology exam Pathology and Cytology Timed Rash and other nonspecific skin eruption Release Upon Ordering for 1 Occurrences starting 05/25/2024 [facility] [employer] Work Phone: Comment on above: Release Upon Ordering for 1 Occurrences starting 05/25/2024 End: 12-12-2025 Lipid panel Lipid panel Lab Routine Medication management 1 Occurrences starting 2024 until 12/12/2025 [employer] Work Phone: Comment on above: 1 Occurrences starting 2024 until 12/12/2025 End: 12-12-2025 Magnesium [Mass/volume] in Serum or Plasma Magnesium Lab Routine Medication management 1 Occurrences starting 2024 until 12/12/2025 [facility] Work Phone: Comment on above: 1 Occurrences starting 2024 until 12/12/2025 Renal function 2000 panel - Serum or Plasma [facility] Immunizations Immunization Date Immunization Notes Care Provider Fa cility 07-11-2023 influenza virus vacc ine, unspecified formulation Lorraine Mayer MD Work Phone: [facility] 07-10-2022 unknown vaccine or immune globulin Ga Lai DPM Work Phone: [facility] 07-20-2021 unknown vaccine or immune globulin Ga Lai DPM Work Phone: [facility] 07-18-2020 Seasonal trivalent influenza vaccine, adjuvanted, preservative free Luis Kb PA-C Work Phone: [facility] 07-18-2020 influenza virus vacc ine, unspecified formulation Luis Kb PA-C Work Phone: [facility] 07-22-2019 Seasonal trivalent influenza vaccine, adjuvanted, preservative free Lius Kb PA-C Work Phone: [facility] 07-20-2019 influenza, injectabl e, quadrivalent, preservative free Ga Lai DPM Work Phone: [facility] 07-14-2018 Seasonal trivalent influenza vaccine, adjuvanted, preservative free Luis Kb PA-C Work Phone: [facility] 07-15-2017 pneumococcal conjuga te vaccine, 13 valent Luis Kb PA-C Work Phone: [facility] 07-08-2017 influenza, high dose seasonal, preservative-free Luis Kb PA-C Work Phone: [facility] 07-25-2016 influenza, high dose seasonal, preservative-free Luis Kb PA-C Work Phone: [facility] 07-11-2015 influenza, high dose seasonal, preservative-free Luis Kb PA-C Work Phone: [facility] 07-16-2014 influenza, seasonal, injectable Luis Kb PA-C Work Phone: [facility] [employer] [facility] 07-10-2013 influenza, seasonal, injectable Luis Kb PA-C Work Phone: [facility] [employer] [facility] 08-08-2012 influenza virus vacc ine, unspecified formulation Luis Kb PA-C Work Phone: [facility] [employer] [facility] 08-08-2012 pneumococcal polysaccharide vaccine, 23 valent Luis Kb PA-C Work Phone: [facility] [employer] [facility] 07-11-2011 influenza virus vacc ine, unspecified formulation Luis Kb PA-C Work Phone: [facility] [employer] [facility] 08-15-2010 influenza virus vacc ine, unspecified formulation Luis Kb PA-C Work Phone: [facility] [employer] [facility] 07-26-2009 influenza virus vacc ine, unspecified formulation Luis Kb PA-C Work Phone: [facility] [employer] [facility] 08-04-2008 influenza virus vacc ine, unspecified formulation Luis Kb PA-C Work Phone: [facility] [employer] [facility] 08-13-2007 influenza virus vacc ine, unspecified formulation Luis Kb PA-C Work Phone: [facility] [employer] [facility] 08-11-2004 influenza virus vacc ine, unspecified formulation Luis Kb PA-C Work Phone: [facility] [employer] [facility] 08-09-2003 influenza virus vacc ine, unspecified formulation Luis Kb PA-C Work Phone: [facility] [employer] [facility] 08-09-2003 pneumococcal polysaccharide vaccine, 23 valent Luis Kb PA-C Work Phone: [facility] [employer] [facility] Payers Date Payer Category Payer Self-pay 2021 Medicaid [employer] MEDICARE A DVANTAGE [id number] 2021 Medicare [id number] 2021 Medicare HMO [employer] MEDICARE ember [id number] 1959 Medicare [id number] 1944 Unknown [id number] 2.16.840.1.322755.3.579.2.593 1944 Unknown [id number] 2.16.840.1.000834.3.579.2.593 1944 Unknown [id number] 2.16.840.1.466188.3.579.2.593 1944 Unknown [id number] 2.16.840.1.214229.3.579.2.593 1944 Unknown [id number] 2.16.840.1.534598.3.579.2.593 1944 Unknown [id number] 2.16.840.1.396522.3.579.2.593 1944 Unknown [id number] 2.16.840.1.645334.3.579.2.593 1944 Unknown [id number] 2.16.840.1.772794.3.579.2.593 1944 Unknown [id number] 2.16.840.1.562314.3.579.2.593 1944 Unknown [id number] 2.16.840.1.533124.3.579.2.593 1944 Unknown [id number] 2.16.840.1.609705.3.579.2.593 1944 Unknown [id number] 2.16.840.1.732687.3.579.2.593 1944 Unknown [id number] 2.16.840.1.296766.3.579.2.593 1944 Unknown [id number] 2.16.840.1.373114.3.579.2.593 1944 Unknown [id number] 2.16.840.1.920502.3.579.2.593 1944 Unknown [id number] 2.16.840.1.363761.3.579.2.593 1944 Unknown [id number] 2.16.840.1.895524.3.579.2.1286 1944 Unknown [id number] 2.16.840.1.990183.3.579.2.1259 1944 Unknown [id number] 2.16.840.1.955598.3.579.2.1259 1944 Unknown [id number] 2.16.840.1.186554.3.579.2.1259 1944 Unknown [id number] 2.16.840.1.708025.3.579.2.1259 1944 Unknown [id number] 2.16.840.1.938530.3.579.2.1259 1944 Unknown [id number] 2.16.840.1.339002.3.579.2.1259 1944 Unknown [id number] 2.16.840.1.825558.3.579.2.1259 Medicare Medicare [id number] Unknown Unknown [facility] [id number] Unknown [id number] 2.16.840.1.993964.3.579.2.531 Unknown [id number] 2.16.840.1.619493.3.579.2.531 Social History Date Type Detail Facility Unknown if ever smoked [employer] Other Start: 06-25-2024 End: 03-23-2025 Sex Assigned At [employer] [facility] Start: 03-14-2023 End: 06-15-2024 Tobacco smoking status MSIS Ex-smoker [facility] End: 10-07-1969 History of tobacco use Current smoker [facility] [employer] [facility] End: 10-07-1969 History of tobacco use Cigarette Smoker [facility] [employer] [facility] Start: 03-14-2023 End: 01-17-2024 Tobacco use and exposure Smokeless tobacco non-user [facility] [employer] [facility] Start: 06-25-2024 End: 03-23-2025 Alcoholic beverage intake Not Asked [facility] Start: 06-25-2024 End: 03-23-2025 History of Social function [facility] Start: 10-21-2023 Alcohol Comment caffeine intake: 1-2 cups per day [facility] Healthcare Start: 1945 Sex assigned at Not on file [facility] [employer] Start: 03-19-2023 End: 01-17-2024 Alcoholic beverage intake Ex-drinker (finding) [facility] Do you belong to any clubs or organizations such as jain groups, unions, fraternal or athletic groups, or school groups? No [facility] Are you now , , , , never or living with a partner? [facility] How hard is it for y ou to pay for the very basics like food, housing, medical care, and heating Not hard at all [facility] Do you feel stress - tense, restless, nervous, or anxious, or unable to sleep at night because your mind is troubled all the time - these days [OSQ] Not at all [facility] [employer] [facility] Start: 05-21-2017 End: 01-14-2025 Sex Female (finding) [facility] [employer] [facility] tem Start: 1945 Sex Assigned At Female [facility] Goals Date Patient Goal Desired Activity /State Personal health goal Comment on above: Formatting of this n ote might be different from the original. Evaluation of progress towards goal: return home with homecare and support from [facility], children and grandchildren Clinical Notes 01-18-2022 to 06-14-2025 Lorraine Mayer MD - 06/14/2025 10:10 AM Shaniqua Tineo MD - 03/23/2025 2:30 PM Deny Mayer MD - 02/15/2025 9:40 AM EDTTelephone Encounter - Philomena Pantoja RN - 12/12/2024 1:38 PM EST Note Date & Type Note Facility 06-14-2025 History of Present illness Narrative Kylah Robin is a 79 y.o. female No ref. provider found presents with chief complaint of Diabetes, Thyroid Problem, and Hyperlipidemia HPI: IM 06/2025 Follow-up visit 06/14/2025 A1c in the office 7.6 blood sugar 349, she is on Humalog 09-21-22, Tresiba 30 units bid, she was on [...] said last GFR around 30 with her pbx manager. Interim History: 03/2023 Follow-up visit on [...] she states GFR is 30, per her pbx manager. Interim History: 08/24 Followup visit on [...] reading of her . Lab done in [facility] BUN 28/creatinine 1.43, GFR 36, [...] MG capsule 1 capsule, Every 12 hours gaflxpjhokog-hlrk-szqdqyjz-folic acid (Centrum) chewable tablet 1 tablet, Daily [...] disease) Chronic kidney disease, stage III (moderate) ([facility]-HCC) Current use of insulin (HCC) Diabetes (HCC) [...] consultation Chronic renal disease, stage IV (HCC) Follow up in about 3 months (around 09/13/2025). documented in this encounter [facility] 03-23-2025 History of Present illness Narrative Skin Check Location: Patient requests a skin examination of the face and arms Dermatologic history: history of Actinic Keratosis, history of Basal Cell Carcinoma, history of Squamous Cell Carcinoma Last visit: 1 year ago Established patient Lesions: Location: Left rastafari Duration: 1 year Quality: denies pain, denies [...] or higher 2. 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 [...] or tenderness Cryotherapy, skin lesion - Left Denominational 3. SOLAR PURPURA (2) Left Forearm - [...] Visit: 1 year documented in this encounter [facility] 02-25-2025 Note [facility] Cardiology Clinic [...] gallops. RESPIRATORY: CTAB, (more content not included)... [facility] 02-15-2025 History of Present illness Narrative Kylah [...] said last GFR around 30 with her pbx manager. Interim History: 03/2023 Follow-up visit on [...] she states GFR is 30, per her pbx manager. Interim History: 08/24 Followup visit on [...] reading of her . Lab done in [facility] BUN 28/creatinine 1.43, GFR 36, [...] MG capsule 1 capsule, Every 12 hours gtxzpsuyrzlq-giil-qpbqresw-folic acid (Centrum) chewable tablet 1 tablet, Daily [...] Chronic kidney disease, stage III (moderate) (HCC) (CMS/[facility]) Current use of insulin ([facility]/HCC) Diabetes (CMS/HCC) Frozen shoulder GERD (gastroesophageal reflux [...] hyperglycemia, with long-term 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 ([facility]) - POCT glucose manually resulted - POCT glycosylated hemoglobin (Hb A1C) docked device Vitamin D deficiency Microalbuminuria Hyperlipemia, mixed ([facility]) Primary hypertension ([facility]) Insulin long-term use ([facility]) 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[facility]) Encounter for dietary consultation Chronic renal disease, stage IV ([facility]) Said her last [...] months (around 06/18/2025). documented in this encounter [facility] 12-21-2024 Miscellaneous Notes Phoned pt and lm on to call office for any further refills. Letter mailed to pt. documented in this encounter [facility] 12-21-2024 Telephone encounter Note Phoned pt and lm on to call office for any further refills. Letter mailed to pt. [facility] 12-12-2024 Miscellaneous Notes Last OV 4/24 Mg 3/27/24 Mg pended; refill letter mailed documented in this encounter [facility] 12-12-2024 Miscellaneous Notes Last OV 01/17/24 Lipid profile 07/08/23 Lipid panel pended; refill letter mailed documented in this encounter [facility] 12-12-2024 Telephone encounter Note Last OV 01/17/24 Mg 3/27/24 Mg pended; refill letter mailed [facility] 12-12-2024 Telephone encounter Note Last OV 01/17/24 Lipid profile 07/08/23 Lipid panel pended; refill letter mailed [facility] 11-27-2024 Note SUBJECTIVE Reason for Visit: Kylah [...] for a follow-up after being discharged from [facility] in February 2024. She was admitted for [...] Diagnosis Acquired hypothyroidism Anemia Arthritis 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 Combined forms of [...] 0.1 mg, o (more content not included)... [facility] 11-27-2024 Note Patient here for 6 m o follow up CAD, hypertension, MR, and diastolic dysfunction. Had echo in Jun 2024. She presented to [facility] ED last week with concerns of elevated BP. She takes clonidine PRN for elevated SBP > 200. Denies chest pain and SOB. Does feel palpitations. She wonders if the clonidine patches would help her. Review of Systems Cardiovascular: Positive for irregular heartbeat and palpitations. Musculoskeletal: Positive for myalgias. All other systems reviewed and are negative. [facility] 11-16-2024 History of Present illness Narrative Kylah [...] said last GFR around 30 with her pbx manager. Interim History: 03/2023 Follow-up visit on [...] she states GFR is 30, per her pbx manager. Interim History: 08/24 Followup visit on [...] reading of her . Lab done in [facility] BUN 28/creatinine 1.43, GFR 36, total cholesterol 188, triglycerides 323, LDL 76, SDL 48, TSH 0.606, free T4 1.5 [0.78-2.19], albumin/creatinine 161, TPO less than 6, thyroglobulin antibody less than 1. She is on Levemir 40 units twice a day, Novolog 10-16 units every meal, levothyroxine 150 mcg daily. interim Follow-up visit in 09/25/17 for CGM interpretation Boo, Average 162 estimated A1c 7.2, standard deviation, [...] MG capsule 1 capsule, Every 12 hours jupklwgcvnch-crsb-yefgdwrd-folic acid (Centrum) chewable tablet 1 tablet, Daily [...] disease) Gout 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CMS/HCC) HLD (hyperlipidemia) ([facility]/HCC) HTN (hypertension) ([facility]/HCC) Hypoglycemia Hypothyroidism (CMS/HCC) Obesity with body mass [...] 03/16/2025). documented in this encounter [facility] 09-06-2024 History of Present illness Narrative Images [...] arise. documented in this encounter [facility] 09-05-2024 Miscellaneous Notes Asad 01/17/24 Cmp 01/01/24 documented in this encounter [facility] 09-05-2024 Telephone encounter Note Asad 01/17/24 Cmp 01/01/24 [facility] 07-13-2024 History of Present illness Narrative Kylah [...] said last GFR around 30 with her pbx manager. Interim History: 03/2023 Follow-up visit on [...] she states GFR is 30, per her pbx manager. Interim History: 08/24 Followup visit on [...] reading of her . Lab done in [facility] BUN 28/creatinine 1.43, GFR 36, [...] MG capsule 1 capsule, Every 12 hours piqrrtipzjnt-xclm-lgiakhso-folic acid (Centrum) chewable tablet 1 tablet, Oral, [...] Basal cell carcinoma CAD (coronary artery disease) ([facility]/HCC) Chronic kidney disease, stage III (moderate) (HCC) ([facility]) Current use of insulin ([facility]) Diabetes ([facility]) Frozen shoulder GERD (gastroesophageal reflux disease) Gout 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[facility]) HLD (hyperlipidemia) ([facility]) HTN (hypertension) ([facility]) Hypoglycemia Hypothyroidism ([facility]) Obesity with body mass index (BMI) of 30.0 to 39.9 Squamous cell skin cancer Thyroid disease ([facility]) Type 2 diabetes mellitus with other diabetic kidney complication ([facility]) Vitamin D deficiency [...] hyperglycemia, with long-term 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 ([facility]/HCC) - POCT glucose manually resulted We will continue long-acting 30 units does not remember the name, short-acting 07/18/15 according to meal size Vitamin D deficiency Microalbuminuria Hyperlipemia, mixed (CMS/HCC) Primary hypertension (CMS/HCC) Insulin long-term use (CMS/HCC) 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CMS/HCC) Continue levothyroxine 150 and Cytomel 5 Encounter for dietary consultation Chronic renal disease, stage IV ([facility]) Follow up in about 4 months (around 11/13/2024). documented in this encounter [facility] 06-25-2024 History of Present illness Narrative Images [...] site. documented in this encounter [facility] 06-04-2024 History of Present illness Narrative Follow up Diagnosis: Rash unspecified Location: hands Procedure performed: Punch biopsy Status: not as painful Date of procedure: 05/25/2024 Current treatment: Betamethasone Dipro 0.05% cream, here for biopsy results Suture Removal Patient here for suture removal: No complaints of redness, drainage or swelling at site, compliant with wound care. Location: Right Hypothenar Delta Procedure Performed: Punch biopsy Date of Procedure: 05/25/2024 Medications: Betamethasone All pertinent medical history, medications, and allergies were reviewed. General Exam: alert , oriented to person, place, and time , normal affect, well appearing Unaccompanied A focused exam completed based on patient reported problems, see below: 1. Granuloma annulare Left Hand - Anterior, Right Hand - Anterior [place] indurated annular plaques. Flaring today, but improved [...] lesions documented in this encounter [facility] 05-25-2024 History of Present illness Narrative Images [...] and other nonspecific skin eruption Right Hypothenar Delta [place] plaques Biopsy today, see procedure note. Start Betamethasone cream bid when flared, hold when clear. Lesion biopsy - Right Hypothenar Delta Type of biopsy: punch Informed consent: discussed [...] results documented in this encounter [facility] 05-11-2024 Note [facility] Cardiology Clinic Note Chief Complaint: Patient here for follow up [facility] discharge back in February 2024. [...] ventricular gram/pressure Indications (more content not included)... [facility] 03-18-2024 Miscellaneous Notes Asad 01/17/24 Mg 07/08/23 -per 07/09/23 refill encounter Pt needs mg, orders in place. documented in this encounter [facility] 03-18-2024 Telephone encounter Note Asad 01/17/24 Mg 07/08/23 -per 07/09/23 refill encounter Pt needs mg, orders in place. [facility] 01-17-2024 History of Present illness Narrative Kylah [place] Date of visit: 01/17/2024 Date of : 1945 Age: 78 y.o. Patient Active Problem List Diagnosis Diabetes mellitus ([facility]) Hypertensive urgency Arthritis Dyspnea Other forms of angina pectoris ([facility]) Unstable angina ([facility]) Obesity (BMI 30-39.9) H/O four vessel coronary artery bypass graft Paroxysmal atrial fibrillation ([facility]) 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 Obesity (BMI 30-39.9) Essential hypertension Other hyperlipidemia Class 1 obesity in adult Stage 4 chronic kidney disease ([facility]) 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 She was recently hospitalized at [place] for poorly controlled blood pressure. Her blood [...] pain Chronic kidney disease COVID-19 Diabetes mellitus ([facility]) Dyspnea Edema GERD (gastroesophageal reflux disease) Gout Hyperlipidemia Hypertensive urgency Hypothyroidism Lower back pain Mitral regurgitation Osteopenia Ventricular hypertrophy No data recorded No data recorded No data recorded Past Surgical History: Procedure Laterality Date CARDIAC CATHETERIZATION CATARACT EXTRACTION, BILATERAL CHOLECYSTECTOMY COLONOSCOPY Coronary angiogram and left ventricular gram/pressure N/A 12/28/2020 Performed by Kassie Nicole MD at [facility] CARDIAC CATH LABS CORONARY ARTERY BYPASS GRAFT X 4 with OCASIO and SVG x3 / EVH LEFT upper and lower AND RIGHT upper LEG / LUCAS N/A 12/29/2020 Performed by Herrera De Paz MD at [facility] / TX INCOMPLETE [...] min Stress: No Stress Concern Present (12/28/2020) [employer] [place] [employer] - Occupational Stress Questionnaire Feeling of Stress : Not at all Social Connections: Moderately Integrated (12/28/2020) Social Connection and Isolation Panel [NHANES] Frequency of Communication with Friends and Family: More than three times a week Frequency of Social Gatherings with Friends and Family: More than three times a week Attends Mandaen Services: More than 4 times per year [...] tablet Reorder IMPRESSIONS/PLAN 1. Paroxysmal atrial fibrillation (CMS-HCC) - POCT EKG - carvediloL (COREG) 25 mg tablet; Take 2 tablets (50 mg total) by mouth in the morning and 2 tablets (50 mg total) before bedtime. Dispense: 180 tablet; Refill: 3 2. Stage 4 chronic kidney disease ([facility]) - Basic Metabolic Panel; Future 3. 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 Other forms of angina pectoris ([facility]) 5. Essential hypertension - Basic Metabolic Panel; Future 6. 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 7. H/O four [...] BNP. 2. Atherosclerosis of coronary arteries of kaibab heart without angina pectoris. Patient has had [...] MD Referring Physician: Dhruv Rubi MD [address] [place] [address] documented in this encounter [facility] 01-16-2024 Miscellaneous Notes Called patient to remind them to bring their most current copy of their medication list with them to their appt. Patient verbalizes understanding. documented in this encounter [facility] 01-16-2024 Telephone encounter Note Called patient to remind them to bring their most current copy of their medication list with them to their appt. Patient verbalizes understanding. [facility] 11-18-2023 Evaluation note Encounter Date Diagnosis Assessment [...] potassium improved with dietary restriction and Lasix. [employer] [facility] 01-29-2024 Evaluation note* Encounter Date Diagnosis Assessment Notes Treatment Notes Treatment Clinical Notes Oct, Anemia of renal disease (ICD-10 - D63.1) Oct, CKD (chronic kidney disease) stage 4, GFR 15-29 ml/min (ICD-10 - N18.4) [employer] [facility] 01-09-2024 Evaluation note* Encounter Date Diagnosis [...] potassium improved with dietary restriction and Lasix. [employer] 12-04-2023 Evaluation note* Encounter Date Diagnosis [...] 4, GFR 15-29 ml/min (ICD-10 - N18.4) [employer] 11-21-2023 Evaluation note* Encounter Date Diagnosis Assessment Notes Treatment Notes Treatment Clinical Notes Aug, Anemia of renal disease (ICD-10 - D63.1) Aug, CKD (chronic kidney disease) stage 4, GFR 15-29 ml/min (ICD-10 - N18.4) [employer] [facility] 11-09-2023 Evaluation note* Encounter Date Diagnosis [...] of kidney mass hydronephrosis or kidney stones. [employer] [facility] 10-26-2023 Evaluation note* Encounter Date Diagnosis [...] potassium improved with dietary restriction and Lasix. [employer] 09-18-2023 Evaluation note* Encounter Date Diagnosis [...] potassium improved with dietary restriction and Lasix. [employer] [facility] 08-31-2023 Evaluation note* Encounter Date Diagnosis [...] potassium improved with dietary restriction and Lasix. [employer] Other 07-25-2023 Evaluation note* Encounter Date Diagnosis [...] to normal with dietary restriction and Lasix. [employer] Other 07-01-2023 Evaluation note* Encounter Date Diagnosis Assessment Notes Treatment Notes Treatment Clinical Notes Apr, CKD (chronic kidney disease) stage 4, GFR 15-29 ml/min (ICD-10 - N18.4) Apr, Anemia of renal disease (ICD-10 - D63.1) [employer] Other 06-27-2023 Evaluation note* Encounter Date Diagnosis [...] to normal with dietary restriction and Lasix. [employer] Other 06-01-2023 Evaluation note* Encounter Date Diagnosis [...] potassium diet and provide information about it. [employer] Other 03-16-2023 Evaluation note* Encounter Date Diagnosis [...] to Continue Vit D 5000 units daily [employer] Other 01-30-2023 Evaluation note* Encounter Date Diagnosis [...] to Continue Vit D 5000 units daily [employer] Other 12-22-2022 Evaluation note* Encounter Date Diagnosis [...] to Continue Vit D 5000 units daily [employer] Other 11-16-2022 Evaluation note* Encounter Date Diagnosis [...] to Continue Vit D 5000 units daily [employer] Other 08-04-2022 Evaluation note* Encounter Date Diagnosis Assessment Notes Treatment Notes Treatment Clinical Notes May, Hypertensive chronic kidney disease with stage 1 through stage 4 chronic kidney disease, or unspecified chronic kidney disease (ICD-10 - I12.9) [employer] Other 08-02-2022 Evaluation note* Encounter Date Diagnosis [...] to Continue Vit D 5000 units daily [employer] Other 07-19-2022 Evaluation note* Encounter Date Diagnosis Assessment Notes Treatment Notes Treatment Clinical Notes Apr, Hypertensive chronic kidney disease with stage 1 through stage 4 chronic kidney disease, or unspecified chronic kidney disease (ICD-10 - I12.9) [employer] Other 04-14-2022 Evaluation note* Encounter Date Diagnosis [...] to take Vit D 1000 units daily [facility] Other Evaluation noteNo InformationNortConem[facility] Other Evaluation note* Diagnosis Type 2 diabetes mellitus with hyperglycemia, with long-term 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 ([facility])- Primary Vitamin D deficiency Microalbuminuria Proteinuria Hyperlipemia, mixed ([facility]) Mixed hyperlipidemia Primary hypertension ([facility]) Unspecified essential hypertension Insulin long-term use ([facility]) Encounter for long-term (current) use of insulin 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[facility]) Chronic lymphocytic thyroiditis Encounter for dietary consultation Chronic renal disease, stage IV ([facility]) Chronic kidney disease, Stage IV (severe) documented in this encounter [facility] HealthcareEvaluation note* Diagnosis Rash and other nonspecific skin eruption- Primary documented in this encounter [facility] HealthcareEvaluation note* Diagnosis Granuloma annulare- Primary Other specified erythematous condition documented in this encounter [facility] HealthcareEvaluation note* Diagnosis Onychomycosis- Primary Dermatophytosis of nail Pain in both feet Corns and callosities Type 2 diabetes mellitus without complication, with long-term 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 ([facility]) documented in this encounter [facility] HealthcareEvaluation note* Diagnosis Onychomycosis- Primary Dermatophytosis of nail Pain in both feet Corns and callosities Type 2 diabetes mellitus without complication, with long-term 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 ([facility]) documented in this encounter [facility] HealthcareEvaluation note* Diagnosis Type 2 diabetes mellitus with hyperglycemia, with long-term 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 ([facility])- Primary Vitamin D deficiency Microalbuminuria Proteinuria Hyperlipemia, mixed ([facility]) Mixed hyperlipidemia Primary hypertension ([facility]) Unspecified essential hypertension Insulin long-term use ([facility]) Encounter for long-term (current) use of insulin 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[facility]) Chronic lymphocytic thyroiditis Encounter for dietary consultation Chronic renal disease, stage IV ([facility]) Chronic kidney disease, Stage IV (severe) documented in this encounter [facility] HealthcareEvaluation note* Diagnosis 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 Hypertensive urgency Shortness of breath Paroxysmal atrial fibrillation ([facility]) Atrial fibrillation Localized edema Edema [facility] Paroxysmal atrial fibrillation ([facility])- Primary Atrial fibrillation Stage 4 chronic kidney disease ([facility]) 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 ([facility]) Other forms of angina pectoris ([facility]) Essential hypertension Unspecified essential hypertension 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 Hypertensive urgency Shortness of breath Localized edema Edema documented in this encounter [facility]* Diagnosis Medication management- Primary documented in this encounter [facility]* Diagnosis Medication management- Primary 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 Hypertensive urgency Shortness of breath Paroxysmal atrial fibrillation ([facility]) Atrial fibrillation Localized edema Edema documented in this encounter [facility]* Diagnosis Onset Date Resolution Status [...] kidney disease acute January 14, 2025 8:59am [facility] Work Phone: Evaluation note* Diagnosis Type 2 diabetes mellitus with hyperglycemia, with long-term 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 ([facility])- Primary Vitamin D deficiency Microalbuminuria Proteinuria Hyperlipemia, mixed ([facility]) Mixed hyperlipidemia Primary hypertension ([facility]) Unspecified essential hypertension Insulin long-term use (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[facility]) Chronic lymphocytic thyroiditis Encounter for dietary consultation Chronic renal disease, stage IV ([facility]) Chronic kidney disease, Stage IV (severe) documented in this encounter [facility] HealthcareEvaluation note* Diagnosis Hyperlipidemia, unspecified hyperlipidemia type- Primary 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 Hypertensive urgency Shortness of breath Paroxysmal atrial fibrillation ([facility]) Atrial fibrillation Localized edema Edema documented in this encounter [facility]* Diagnosis Seborrheic keratosis- Primary Seborrheic keratosis, inflamed Solar purpura Lentigines documented in this encounter [facility] HealthcareEvaluation noteNo assessment information availableTr[facility] Work Phone: Evaluation note* Diagnosis Type 2 [...] Stage IV (severe) documented in this encounter [facility] general Narrative - Reported* Type Description Date [...] NOSE 10/2019 Surgical History QU[facility]PASS AT [facility] [place] 01/01/2021 Hospitalization History ELEVATED BLOOD PRESSURE Hospitalization History SEE ABOVE Hospitalization History COVID 09/2020 [employer] Other [facility] general Narrative - Reported* Type Description Date [...] History SEE ABOVE Hospitalization History COVID 09/2020 [employer] Other [employer] [employer] general Narrative - Reported* Type Description Date [...] NOSE 10/2019 Surgical History QUAD BYPASS AT [facility] [place] 01/01/2021 Hospitalization History ELEVATED BLOOD PRESSURE Hospitalization History SEE ABOVE Hospitalization History COVID 09/2020 [employer] Other [facility] general Narrative - ReportedNoPerkHub Other history general Narrative - Reported* Type [...] History SEE ABOVE Hospitalization History COVID 09/2020 [employer] Other InstructionsNot on filedocumented in this encounter [...] for referral (narrative)No reason for referral information availableTr[facility] Work Phone: Summary Purpose Family History [...] Date Unknown April 21, 2025 10:1 0pm Chief Complaint Admit Date Unknown April 21, 2025 10:1 0pm Unknown May 25, 2025 11 :55am Additional Source Comments INFORMATION SOURCE (unrecogn ized section and content) DATE CREATED AUTHOR 04/02/[address] [facility] DATE CREATED AUTHOR AUTHOR'S ORGANIZ ATION [facility]/27[facility]2023 [facility] DATE CREATED AUTHOR AUTHOR'S ORGANIZ ATION 01/18/2024 [facility] DATE CREATED AUTHOR AUTHOR'S ORGANIZ ATION 03/03/2025 [facility] DATE CREATED AUTHOR AUTHOR'S ORGANIZ ATION 06/01/2025 [facility] DATE CREATED AUTHOR AUTHOR'S ORGANIZ ATION 06/15/2025 [facility] EPIC REASON FOR VISIT (unrecogniz ed section and content) Reason Comments Diabetes Mellitus Follow-up Reason Comments Skin Problem Reason Comments Suture / Staple Removal Reason Comments Diabetes Thyroid Problem Follow-up Reason Comments Med Refill Reason Comments Hospital Follow-up [facility] HTN AND 1 MONTH Hypertension Atrial Fibrillation Shortness of Breath Reason Comments Thyroid Problem Diabetes Mellitus Reason Comments Diabetes Thyroid Problem Hyperlipidemia Care Teams (unrecognized sec tion and content) Team Status: Active Member Role Status Dates Dhruv Rubi MD Primary Care Provider Active Team Status: Inactive Member Role Status Dates Dhruv Rubi MD Primary Care Provider Active Start: April 21, 2025 End: April 21, 2025 Dmitriy Lynne MD Attending Provider Active St art: April 21, 2025 End: April 21, 2025 Senior Center Director Relationship Specialty Start Date End Date Dhruv Rubi MD [address] [place] [address] PCP - General Family Medicine 10/22/23 Senior Center Director Relationship Specialty Start Date End Date Dhruv Rubi MD [address] [place] [address] PCP - General Family Medicine 10/22/23 Senior Center Director Relationship Specialty Start Date End Date Dhruv Rubi MD [address] [place] [address] PCP - General Family Medicine 10/22/23 Senior Center Director Relationship Specialty Start Date End Date Dhruv Rubi MD [address] [facility] [place] [address] PCP - General Family Medicine 10/22/23 Senior Center Director Relationship Specialty Start Date End Date Dhruv Rubi MD [address] [place] [facility] [place] [address] PCP - General Family Medicine 10/22/23 Senior Center Director Relationship Specialty Start Date End Date Dhruv Rubi MD [address] [facility] [place] [address] PCP - General Family Medicine 10/22/23 Senior Center Director Relationship Specialty Start Date End Date Dhruv Rubi MD [address] [facility] [place] [address] PCP - General Family Medicine 10/22/23 Senior Center Director Relationship Specialty Start Date End Date Dhruv Rubi MD [address] [facility] [place] [address] PCP - General Family Medicine 10/22/23 Senior Center Director Relationship Specialty Start Date End Date Dhruv Rubi MD [address] [facility] [place] [address] PCP - General Family Medicine 10/22/23 Senior Center Director Relationship Specialty Start Date End Date Dhruv Rubi MD [address] [place] [address] PCP - General Family Medicine 10/20/20 Senior Center Director Relationship Specialty Start Date End Date Dhruv Rubi MD [address] [place] [address] PCP - General Family Medicine 10/20/20 Senior Center Director Relationship Specialty Start Date End Date Dhruv Rubi MD [address] [place] [address] PCP - General Family Medicine 10/20/20 Senior Center Director Relationship Specialty Start Date End Date Dhruv Rubi MD [address] [place] [address] PCP - General Family Medicine 10/20/20 Senior Center Director Relationship Specialty Start Date End Date Dhruv Rubi MD PCP - General Family Medicine 10/20/20 Senior Center Director Relationship Specialty Start Date End Date Dhruv Rubi MD PCP - General Family Medicine 10/20/20 Senior Center Director Relationship Specialty Start Date End Date Dhruv Rubi MD PCP - General Family Medicine 10/20/20 Senior Center Director Relationship Specialty Start Date End Date Dhruv [...] January 14, 2025 End: January 14, 2025 Senior Center Director Relationship Specialty Start Date End Date Dhruv Rubi MD PCP - [facility] Family Medicine 10/22/23 Senior Center Director Relationship Specialty Start Date End Date Dhruv Rubi MD PCP - [facility] 10/22/23 Senior Center Director Relationship Specialty Start Date End Date Dhruv Rubi MD PCP [facility] 10/20/20 Senior Center Director Relationship Specialty Start Date End Date Dhruv Rubi MD PCP [facility] 10/22/23 Senior Center Director Relationship Specialty Start Date End Date Dhruv Rubi MD PCP [facility] 10/22/23 Team Status: Inactive Member Role Status Dates Dhruv Rubi MD Attending Provider Active Sta rt: May 25, 2025 End: May 25, 2025 Senior Center Director Relationship Specialty Start Date End Date Dhruv Rubi MD [facility] 10/22/23 Goals (unrecognized section and content) Goals [...] BE BASED ON THE PRIMARY CLINICAL RECORDS. [facility]. provides no warranty or guarantee of the accuracy or completeness of information in this document.
--- OUTSIDE RECORDS SUMMARY | 2025-06-16 06:46 | XMS_ITS | Encounter Summary ---
Author Organization [facility] Address [id number] [address] [place] [address] Care Team Providers Care Wrestling Coach Name Role Phone Merrick Rubi MD Primary Care Provider [phone] Encounter Details Date Type Department Care Team (Late st Contact Info) Description 01/17/2024 Orders Only [facility] [address] [place] [phone] External, Scanning Provider Social History Tobacco Use [...] any clubs o r organizations such as buddhism groups, unions, fraternal or athletic groups, or [...] Answer Date Recorded Total Score 0 12/28/2020 [facility] - Occupational [...] Recorded Do you need help finding a [employer] career center and/or a training program? No [...] L ORDERABLES Final Result Performing Organization Address [facility] Phone Number MANUALLY TRANSCRIBED RESULTS * ECG 12 lead (01/01/2024 9:50 AM EDT) us Scanning Provider External ECG ORDERABLES Final Result Performing Organization Address [facility] Phone Number MANUALLY TRANSCRIBED RESULTS * Multiple labs (01/01/2024 9:11 AM EDT) us Scanning Provider External SD IMAGING Final Result Performing Organization Address [facility] de Phone Number MANUALLY TRANSCRIBED RESULTS * Multiple labs (01/01/2024 8:52 AM EDT) us Scanning Provider External SD IMAGING Final Result Performing Organization Address [facility] de Phone Number MANUALLY TRANSCRIBED RESULTS * ECG 12 lead (12/31/2023 9:48 AM EDT) us Scanning Provider External ECG ORDERABLES Final Result Performing Organization Address [facility] de Phone Number MANUALLY TRANSCRIBED RESULTS * Urinalysis (12/31/2023 9:10 AM EDT) us Scanning Provider External URINE ORDERABLES Pamella l Result Performing Organization Address [facility] Phone Number MANUALLY TRANSCRIBED RESULTS * Multiple labs (12/31/2023 8:51 AM EDT) us Scanning Provider External SD IMAGING Final Result Performing Organization Address [facility] Phone Number MANUALLY TRANSCRIBED RESULTS * CT [...] ECG ORDERABLES Final Result Performing Organization Address [facility] Phone Number MANUALLY TRANSCRIBED RESULTS * Multiple labs (12/30/2023 8:50 AM EDT) us Scanning Provider External SD IMAGING Final Result Performing Organization Address [facility] de Phone Number MANUALLY TRANSCRIBED RESULTS documented in this encounter Visit Diagnoses Not on filedocumented in this encounter Additional Health Concerns Assessment Noted Time PHQ-9 Depression Total Score: 0 12/29/19 21 3:16 PM EDT documented as of this encounter Care Teams Wrestling Coach Relationship Specialty Start Date End Date Merrick Rubi MD PCP - General Family Medicine 10/20/20 documented as of this encounter
--- OUTSIDE RECORDS SUMMARY | 2025-06-16 06:47 | XMS_ITS | Encounter Summary ---
Author Organization [facility] Address [id number] [address] [place] [address] Care Team Providers Care Auto Service Advisor Name Role Phone Merrick Rubi MD Primary Care Provider [phone] Encounter Details Date Type Department Care Team (Late st Contact Info) Description 12/28/2020 Orders Only [facility] [address] [place] [phone] External, Scanning Provider Social History Tobacco Use [...] often do you attend chur ch or jewish services? More than 4 times per year 12/28/2020 Do you belong to any clubs o r organizations such as faith groups, unions, fraternal or athletic groups, or [...] Answer Date Recorded Total Score 0 12/28/2020 [facility] - Occupational [...] Multiple labs (11/18/2020) us Scanning Provider External MA IMAGING Final Result MANUALLY TRANSCRIBED RESULTS * Multiple labs (11/17/2020) us Scanning Provider External MA IMAGING Final Result Performing Organization Address [facility] Co de Phone Number MANUALLY TRANSCRIBED RESULTS documented in this encounter Visit Diagnoses Not on filedocumented in this encounter Additional Health Concerns Assessment Noted Time PHQ-9 Depression Total Score: 0 12/29/19 21 3:16 PM EDT documented as of this encounter Care Teams Auto Service Advisor Relationship Specialty Start Date End Date Merrick Rubi MD PCP - General Family Medicine 10/20/20 documented as of this encounter
--- OUTSIDE RECORDS SUMMARY | 2025-06-16 06:47 | XMS_ITS | Patient Health Record ---
Author Organization [facility] in [place] Address [address] [place] [address] Care Team Providers Care Egg Breaker Name Role Phone Jeff Rubi Primary Care Provider [phone] Allergies Allergen (clinical drug ingredient) Drug/Non Drug Allergy documented on EMR Reaction Allergy Type Onset Date Status amoxicillin / clavulanate Augmentin Unknown Drug Allergy Active sulfamethoxazole / trimethoprim Bactrim Unknown Drug Allergy Active doxazosin Cardura Unknown Drug Allergy Active amlodipine Norvasc Unknown Drug Allergy Active Results Component Value Reference Range Notes T4 Reviewed date:06/18/2024 09:50:39 PM Interpretation: Performing Lab: Notes/Report: [facility] , T4 Thyroxine 5.30 4.80-13.90 ug/dL Performing Lab: see note ML - [facility] LB TSH Reviewed date:06/18/2024 09:50:39 PM Interpretation: Performing Lab: Notes/Report: [facility] , Thyroid Stimulating Hormone 1.690 0.358-3.740 uIU/mL Performing Lab: see note ML - [facility] LB XR KNEE RT 3V Reviewed date:03/04/2025 06:23:39 PM Interpretation: Performing Lab: Notes/Report: Source Facility: [facility] [place] [address] [place] [address] XRay Report Signed with Isha Patient: KYLAH ROBIN MR#: [id number] : 1945 Acct:[id number] Age/Sex: 79 / F ADM Date: 03/03/25 Loc: LAB Attending Dr: Dhruv Rubi M.D. Ordering Physician: Dhruv Rubi M.D. Date of Service: 03/03/25 Procedure(s): XR knee RT 3V Accession Number(s): [id number] cc: Dhruv Rubi M.D. ADDENDUM [place] [address] This is an addendum Correction: Addendum Dictated By: Mariusz Hernandez D.O. 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 Impression dictated by: Mariusz Hernandez M.D. 03/04/2025 9:17 AM Dictation Location: [place] [address] Electronically authenticated by: [id number] Y Date: 03/04/2025 09:17 Patient Name: KYLAH ROBIN MRN: [id number] date: 1945 Sex: F Assigned Patient Location: LAB Current Patient Location: Accession/Order Number: [id number] Exam Date: 03/04/2025 09:16 Report Date: 03/04/2025 09:17 At the request of: DHRUV RUBI MD Procedure: XR knee RT 3V The [address] [address] Patient Name: KYLAH ROBIN MRN: [id number] date: 1945 Sex: F Assigned Patient Location: LAB Current Patient Location: LAB Accession/Order Number: [id number] Exam Date: 03/03/2025 16:06 Report Date: 03/03/2025 [...] Hernandez M.D. 03/03/2025 4:08 PM Dictation Location: [place] Electronically authenticated by: [id number] Y Date: 03/03/2025 16:08 Addendum Dictated By: Mariusz Hernandez D.O. Addendum Signed By: 03/04/25 0 919 Addendum Cosigned By: DD/ TD/TT: / [address] [address] Patient Name: KYLAH ROBIN MRN: [id number] date: 1945 Sex: F Assigned Patient Location: LAB Current Patient Location: LAB Accession/Order Number: [id number] Exam Date: 03/03/2025 16:06 Report Date: 03/03/2025 [...] Hernandez M.D. 03/03/2025 4:08 PM Dictation Location: [place] Electronically authenticated by: [id number] Y Date: 03/03/2025 16:08 Dictated By: Mariusz Hernandez D.O. Signed By: 03/03/25 1611 DD/ 07 TD/TT: Terrestrial Ecologist: [place] [address] XRay Report Signed with Addenda Patient: CINDI ROBIN MR#: [id number] : 1945 Acct:[id number] Age/Sex: 79 / F ADM Date: 03/03/25 Loc: LAB Attending Dr: Violeta Rubi M.D. Ordering Physician: Dhruv Rubi M.D. Date of Service: 03/03/25 Procedure(s): XR kne e RT 3V Accession Number(s): [id number] cc: Dhruv Rubi M.D. ADDENDUM [place] [id number] This is an addendum Correction: Addendum Dictated By : Mariusz Hernandez D.O. 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 Impression dictated by: Mariusz Hernandez M.D. 03/04/2025 9:17 AM Dictation Location: [place] [address] Electronically authenticated by: [id number] Y Date: 03/04/2025 09:17 Patient Name: KYLAH ROBNI MRN: [id number] date: 1945 Sex: F Assigned Patient Location: LAB Current Patient Location: Accession/Order Numb er: [id number] Exam Date: 03/04/2025 09:16 Report Date: 03/04/2025 09:17 At the request of: DHRUV RUBI MD Procedure: XR knee RT 3V The [place] [address] Patient Name: KYLAH ROBIN MRN: [id number] date: 1945 Sex: F Assigned Patient Location: LAB Current Patient Loca tion: LAB Accession/Order Numb er: [id number] Exam Date: 03/03/2025 16:06 Report Date: 03/03/2025 [...] Hernandez M.D. 03/03/2025 4:08 PM Dictation Location: [place] Electronically authenticated by: [id number] Y Date: 03/03/2025 16:08 Addendum Dictated By : Mariusz Hernandez D.O. Addendum Signed By: 03/04/25 0 919 Addendum Cosigned By: DD/ TD/TT: / [place] [address] Patient Name: KYLAH ROBIN MRN: [id number] date: 1945 Sex: F Assigned Patient Location: LAB Current Patient Loca tion: LAB Accession/Order Numb er: [id number] Exam Date: 03/03/2025 16:06 Report Date: 03/03/2025 [...] Hernandez M.D. 03/03/2025 4:08 PM Dictation Location: [place] Electronically authenticated by: [id number] Y Date: 03/03/2025 16:08 Dictated By: Vern Hernandez D.O. Signed By: 03/03/25 1611 DD/ 1608 TD/TT: Terrestrial Ecologist: VITAMIN D 25 [place] Reviewed date:01/05/2025 07:25:49 PM Interpretation: Performing Lab: Notes/Report: [facility] , Vitamin D 30.9 <20 ng/mL Vit D deficient 20-<30 ng/mL Vit D insufficient 30-100 ng/mL Vit D sufficient >100 ng/mL Potential Toxicity Performing Lab: see note - [facility] LB UA RANDOM W or MICROSCOPIC Reviewed date:05/25/2025 08:41:24 PM Interpretation: Performing Lab: Notes/Report: [facility] , Color Urine LT. YELLOW YELLOW Clarity Urine CLEAR CLEAR Specific [place] Urine 1.010 1.005-1.025 pH Urine 5.5 5.0-9.0 Protein Urine TRACE NEG/TRACE mg/dL Glucose Urine UA NEGATIVE NEGATIVE mg/dL Bilirubin Urine NEGATIVE NEGATIVE Ketones Urine NEGATIVE NEGATIVE mg/dL Blood Urine NEGATIVE NEGATIVE Nitrite Urine POSITIVE NEGATIVE Urobilinogen Urine 0.2 0.2-1.0 EU/dL Leukocyte Esterase Urine MODERATE NEGATIVE WBC Urine 50-75 NONE SEEN #/HPF RBC Urine 0-2 0-2 #/HPF Bacteria Urine MODERATE NONE SEEN #/HPF Mucus Urine NONE SEEN NONE SEEN Squamous Epithelial Cell Urine RARE NONE/RARE #/LPF Crystals Seen? None Seen None Seen #/HPF Cast Seen? NONE SEEN NONE SEEN #/LPF Urine Culture Indicated ALREADY ORDERED Performing Lab: see note - [facility] LB CBC AUTO DIFF Reviewed date:06/18/2024 09:50:39 PM Interpretation: Performing Lab: Notes/Report: [facility] , White Blood Count 7.1 4.0-11.0 [...] 3/uL Performing Lab: see note ML - [facility] FREE T3 Reviewed date:06/18/2024 09:50:39 PM Interpretation: Performing Lab: Notes/Report: [facility] , Free T3 1.52 2.18-3.98 pg/mL Performing Lab: see note ML - [facility] LB PROF 14(COMP METB) Reviewed date:06/18/2024 09:50:39 PM Interpretation: Performing Lab: Notes/Report: [facility] , Sodium 138 136-145 mmol/L Potassium [...] Globulin Ratio 0.9 Performing Lab: see note [facility] UA RANDOM W or MICROSCOPIC Reviewed date:06/18/2024 09:50:39 PM Interpretation: Performing Lab: Notes/Report: [facility] , Color Urine LT. YELLOW YELLOW Clarity Urine CLEAR CLEAR Specific [place] Urine 1.020 1.005-1.025 pH Urine 5.5 5.0-9.0 [...] Culture Indicated YES Performing Lab: see note - [facility] LB CA echo doppler complete Reviewed date:06/26/2024 08:23:03 AM Interpretation: Performing Lab: Notes/Report: Source Facility: [place] [address] [place] [address] Cardiology Report Signed Patient: KYLAH ROBIN MR#: [id number] : 1945 Acct:[id number] Age/Sex: 78 / F ADM Date: 06/24/24 Loc: CARD Attending Dr: Carlie Prescott M.D. Ordering Physician: Carlie Prescott M.D. Date of Service: 06/24/24 Procedure(s): CA echo doppler complete Accession Number(s): [id number] cc: Carlie Prescott M.D.; Dhruv Rubi M.D. Patient Name: KYLAH ROBIN MR#: [id number] : 1945 Exam Date: 06/24/2024 Ordering Doctor: [...] M.D. Signed By: 06/25/241705 DD/ 04 TD/TT: Terrestrial Ecologist: [place] [address] Cardiology Report Signed Patient: CINDI ROBIN MR#: [id number] : 1945 Acct:[id number] Age/Sex: 78 / F ADM Date: 06/24/24 Loc: CARD Attending Dr: Carlie Prescott M.D. Ordering Physician: Carlie Prescott M.D. Date of Service: 06/24/24 Procedure(s): CA ech o doppler complete Accession Number(s): [id number] cc: Carlie Prescott; Dhruv Rubi M.D. Patient Name: KYLAH ROBIN MR#: [id number] : 1945 Exam Date: 06/24/2024 Ordering Doctor: [...] mobility. No stenosis. Trivial regurgitation. PERICARDIUM: No mame dence of pericardial effusion. CONCLUSION: 1. Global left [...] M.D. Signed By: 06/25/241705 DD/ 04 TD/TT: Terrestrial Ecologist: [place] Reviewed date:09/01/2024 06:04:15 PM Interpretation: Performing Lab: Notes/Report: [facility] , Ferritin 488.0 8.0-252.0 ng/mL Performing Lab: see note ML - [facility] LB IRON AND TIBC Reviewed date:09/01/2024 06:04:15 PM Interpretation: Performing Lab: Notes/Report: [facility] , Iron 61.0 50.0-170.0 ug/dL Total Iron Binding Capacity 205.0 250.0-450.0 ug/dL Percent Iron Saturation 29.8 Performing Lab: see note ML - [facility] LB MAGNESIUM Reviewed date:09/01/2024 06:04:15 PM Interpretation: Performing Lab: Notes/Report: [facility] , Magnesium 1.9 1.8-2.4 mg/dL Performing Lab: see note ML - [facility] LB RENAL FUNCTION PANEL Reviewed date:09/01/2024 06:04:15 PM Interpretation: Performing Lab: Notes/Report: [facility] , Sodium 136 136-145 mmol/L Potassium [...] g/dL Performing Lab: see note ML - [facility] LB URIC ACID SERUM Reviewed date:09/01/2024 06:04:15 PM Interpretation: Performing Lab: Notes/Report: [facility] , Uric Acid 4.2 2.6-6.0 mg/dL Performing Lab: see note ML - [facility] LB VITAMIN D 25 [place] Reviewed date:09/01/2024 06:04:15 PM Interpretation: Performing Lab: Notes/Report: [facility] , Vitamin D 35.4 <20 ng/mL Vit D deficient 20-<30 ng/mL Vit D insufficient 30-100 ng/mL Vit D sufficient >100 ng/mL Potential Toxicity Performing Lab: see note ML - [facility] LB CBC no Diff (Hemogram) Reviewed date:09/01/2024 06:04:15 PM Interpretation: Performing Lab: Notes/Report: [facility] , White Blood Count 6.3 4.0-11.0 [...] 9.4 9.5-13.5 fL Performing Lab: see note [facility] LB UA RANDOM W or MICROSCOPIC Reviewed date:09/06/2024 12:29:49 PM Interpretation: Performing Lab: Notes/Report: [facility] , Color Urine DK. ORANGE YELLOW Clarity Urine CLEAR CLEAR Specific [place] Urine 1.010 1.005-1.025 pH Urine COLOR INTERFERENCE [...] ORDERED Performing Lab: see note ML - [facility] LB Urine Culture, Routine Reviewed date:09/08/2024 [...] AIDEN Status Urine Culture, Routine Performed at: [facility] Urine Culture, Routine Organism: Gram negative martin : O:ESCCOL Isolated O:GNR Isolated Organism: 1.1 Antibiotic Interpretation AIDEN Status Urine Culture, Routine [address] [place], [place] [id number] Urine Culture, Routine Organism: Gram negative martin : O:ESCCOL Isolated O:GNR Isolated Organism: 1.1 Antibiotic Interpretation AIDEN Status Urine Culture, Routine Crematorium Operator: Lavell Benson PhD, Phone: [phone] Urine Culture, Routine Organism: Gram negative martin [...] LC - [facility] LB SEE REPORT - Associate Professor Of Engineering Id information not found for OBX-specific independent producer legend PROF 14(COMP METB) Reviewed date:12/31/2024 08:41:15 PM Interpretation: Performing Lab: Notes/Report: [facility] , Sodium 138 136-145 mmol/L Potassium [...] 0.9 Performing Lab: see note ML - [facility] LB CBC AUTO DIFF Reviewed date:12/31/2024 08:41:15 PM Interpretation: Performing Lab: Notes/Report: [facility] , White Blood Count 7.2 4.0-11.0 [...] Performing Lab: see note ML - [facility] LB BNP Reviewed date:12/31/2024 08:41:15 PM Interpretation: Performing Lab: Notes/Report: [facility] , NT Pro B Type Natriuretic Pept 1558.0 <=1800.0 pg/mL Performing Lab: see note ML - [facility] LB XR chest 1V Reviewed date:09/20/2024 05:06:04 PM Interpretation: Performing Lab: Notes/Report: Source Facility: [place] [address] XRay Report Signed Patient: KYLAH ROBIN MR#: [id number] : 1945 Acct:[id number] Age/Sex: 78 / F ADM Date: 09/20/24 Loc: ER Attending Dr: Ordering Physician: Luis Lugo Date of Service: 09/20/24 Procedure(s): XR chest 1V Accession Number(s): [id number] cc: Dhruv Rubi M.D.; Luis Lugo [place] [address] Patient Name: KYLAH ROBIN MRN: [id number] date: 1945 Sex: F Assigned Patient Location: ER Current Patient Location: ER Accession/Order Number: [id number] Exam Date: 09/20/2024 15:28 Report Date: 09/20/2024 [...] Dictated By: Solomon Beth M.D. Signed By: 09/20/241600 DD/ 57 TD/TT: Terrestrial Ecologist: The [address] [address] XRay Report Signed Patient: CINDI ROBIN MR#: [id number] : 1945 Acct:[id number] Age/Sex: 78 / F ADM Date: 09/20/24 Loc: ER Attending Dr: Ordering Physician: Luis Lugo Date of Service: 09/20/24 Procedure(s): XR chest 1V Accession Number(s): [id number] cc: Dhruv Rubi M.D. ; Luis Lugo [place] [id number] Patient Name: KYLAH ROBIN MRN: [id number] date: 1945 Sex: F Assigned Patient Location: ER Current Patient Loca tion: ER Accession/Order Numb er: [id number] Exam Date: 15:28 Report Date: 09/20/2024 15:58 [...] Dictated By: Antonieta Beth M.D. Signed By: 09/20/241600 DD/ 57 TD/TT: Terrestrial Ecologist: CBC AUTO DIFF Reviewed date:11/18/2024 10:07:51 PM Interpretation: Performing Lab: Notes/Report: [facility] , White Blood Count 6.9 4.0-11.0 [...] Performing Lab: see note ML - [facility] LB PROF CHEM 8 (BAS METB) Reviewed date:11/18/2024 10:07:51 PM Interpretation: Performing Lab: Notes/Report: [facility] , Sodium 140 136-145 mmol/L Potassium [...] Performing Lab: see note ML - [facility] LB ECG 12 lead Reviewed date:11/20/2024 06:53:57 AM Interpretation: Performing Lab: Notes/Report: Source Facility: [facility] [place] [address] [place] [address] Electrocardiograph Report Signed Patient: KYLAH ROBIN MR#: [id number] : 1945 Acct:[id number] Age/Sex: 78 / F ADM Date: 11/17/24 Loc: ER Attending Dr: Ordering Physician: Pee Prabhakar M.D. Date of Service: 11/17/24 Procedure(s): ECG 12 lead Accession Number(s): [id number] cc: [facility] Test Date: 2024-11-17 Pat Name: KYLAH ROBIN Department: Room: - Gender: Female Cardiac Catheterization Technician: : 1945 Requested By: DHRUV RUBI Order Number: [id number] Reading MD: DHRUV RUBI Measurements Intervals [place] Rate: 71 P: 25 WA: 186 QRS: 18 QRSD: 84 T: 91 QT: 408 QTc: 431 Interpretive Statements 1100 Sinus rhythm 4068 Nonspecific Twave abnormality 9130 borderline ECG Compared to ECG 09/20/2024 15:21:49 No significant changes Electronically Signed On 11-20-2024 5:24:01 EST by DHRUV RUBI Dictated By: Dhruv Rubi M.D. Signed By: 11/20/24 0524 DD/ 2218 TD/TT: Terrestrial Ecologist: [place] [address] Electrocardiograph Report Signed Patient: CINDI ROBIN MR#: [id number] : 1945 Acct:[id number] Age/Sex: 78 / F ADM Date: 11/17/24 Loc: ER Attending Dr: Ordering Physician: Pee Prabhakar M.D. Date of Service: 11/17/24 Procedure(s): ECG 12 lead Accession Number(s): [id number] cc: [facility] Test Date: 2024-11-17 Pat Name: KYLAH RODRIGUES Department: 70 Room: - Gender: Female Cardiac Catheterization Technician: : 1945 Requ ested By: DHRUV RUBI Order Number: [id number] Reading MD: DHRUV RUBI Measurements Intervals [place] Rate: 71 P: 25 WA: 186 QRS: 18 QRSD: 84 T: 91 QT: 408 QTc: 431 Interpretive Statements 1100 Sinus rhythm 4068 Nonspecific Twa ve abnormality 9130 borderline ECG Compared to ECG 09/20/2024 15:21:49 No significant changes Electronically [place] d On 11-20-2024 5:24:01 EST by DHRUV RUBI Dictated By: Gissel Rubi M.D. Signed By: 11/20/24 0524 DD/ 17 TD/TT: Terrestrial Ecologist: MM tomosynthesis screening B I Reviewed date:12/22/2024 08:51:42 PM Interpretation: Performing Lab: Notes/Report: Source Facility: [place] [address] Mammography Report Signed Patient: YKLAH ROBIN MR#: [id number] : 1945 Acct:[id number] Age/Sex: 79 / F ADM Date: 12/22/24 Loc: MAMMO Attending Dr: Dhruv Rubi M.D. Ordering Physician: Dhruv Rubi M.D. Results: Date of Service: 12/22/24 Follow Up: Procedure(s): MM tomosynthesis screening BI Accession Number(s): [id number] cc: Dhruv Rubi M.D. Patient Name: KYLAH ROBIN MR#: [id number] : 1945 Exam Date: 12/22/2024 Ordering Doctor: [...] lung cancer at age 61. LOCATION: [facility] BREAST COMPOSITION: There are scattered areas [...] Signed By: 12/22/24 1602 DD/ 1601 TD/TT: Terrestrial Ecologist: [place] [address] Mammography Report Signed Patient: CINDI ROBIN MR#: [id number] : 1945 Acct:[id number] Age/Sex: 79 / F ADM Date: 12/22/24 Loc: MAMMO Attending Dr: Violeta Rubi M.D. Ordering Physician: Dhruv Rubi M.D. Results: Date of Service: Follow Up: Procedure(s): MM tomosynthesis screening BI Accession Number(s): [id number] cc: Dhruv Rubi M.D. Patient Name: KYLAH ROBIN MR#: [id number] : 1945 Exam Date: 12/22/2024 Ordering Doctor: [...] can cer at age 61. LOCATION: [facility] BREAST COMPOSITION: There are scattered areas [...] Signed By: 12/22/24 1602 DD/ 1601 TD/TT: Terrestrial Ecologist: Troponin I High Sensitivity Reviewed date:12/31/2024 08:41:15 PM Interpretation: Performing Lab: Notes/Report: [facility] , Troponin I High Sensitivity 11.5 4.0-51.3 pg/mL CUT-OFF POINTS HAVE BEEN ESTABLISHED BASED ON THE FOURTH UNIVERSAL DEFINITION OF MYOCARDIAL INFARCTION. THE UPPER REFERENCE LIMIT (URL) OF TROPONIN, DEFINED THE 99TH PERCENTILE OF cTnI DISTRIBUTION IN A REFERENCE POPULATION, HAS BEEN CONFIRMED THE DECISION THRESHOLD FOR UT DIAGNOSIS. 99TH PERCENTILE = 51.4 PG/ML NOTE: HIGH-SENSITIVITY TROPONIN ASSAY IS NOT INTENDED TO BE USED IN ISOLATION BUT SHOULD BE INTERPRETED IN CONJUNCTION WITH OTHER DIAGNOSTIC AND CLINICAL INFORMATION. Performing Lab: see note ML - [facility] LB XR chest 2V Reviewed date:12/31/2024 08:41:15 PM Interpretation: Performing Lab: Notes/Report: Source Facility: [facility] [place] [address] [place] [address] XRay Report Signed Patient: KYLAH ROBIN MR#: [id number] : 1945 Acct:[id number] Age/Sex: 79 / F ADM Date: 12/31/24 Loc: LAB Attending Dr: Dhruv Rubi M.D. Ordering Physician: Dhruv Rubi M.D. Date of Service: 12/31/24 Procedure(s): XR chest 2V Accession Number(s): [id number] cc: Dhruv Rubi M.D. [address] [address] Patient Name: KYLAH ROBIN MRN: [facility]:[id number] date: 1945 Sex: F Assigned Patient Location: LAB Current Patient Location: LAB Accession/Order Number: [id number] Exam Date: 12/31/2024 12:38 Report Date: 12/31/2024 [...] Mariusz Hernandez M.D.12/31/2024 12:41 PM Dictation Location: [place] [address] Electronically authenticated by: [id number] Y Date: 12/31/2024 12:41 Dictated By: Mariusz Hernandez D.O. Signed By: 12/31/24 1244 DD/ 1241 TD/TT: Terrestrial Ecologist: The [address] [address] XRay Report Signed Patient: CINDI ROBIN MR#: [id number] : 1945 Acct:[id number] Age/Sex: 79 / F ADM Date: 12/31/24 Loc: LAB Attending Dr: Violeta Rubi M.D. Ordering Physician: Dhruv Rubi M.D. Date of Service: 12/31/24 Procedure(s): XR chest 2V Accession Number(s): [id number] cc: Dhruv Rubi M.D. The [place] [id number] Patient Name: KYLAH ROBIN MRN: [id number]:[id number] date: 1945 Sex: F Assigned Patient Location: LAB Current Patient Loca tion: LAB Accession/Order Numb er: [id number] Exam Date: 12/31/2024 12:38 Report Date: 12/31/2024 [...] Mariusz Hernandez M.D.12/31/2024 12:41 PM Dictation Location: [place] [address] Electronically authenticated by: [id number] Y Date: 12/31/2024 12:41 Dictated By: Vern Hernandez D.O. Signed By: 12/31/24 1244 DD/ 1241 TD/TT: Terrestrial Ecologist: [place] Reviewed date:01/05/2025 07:25:49 PM Interpretation: Performing Lab: Notes/Report: [facility] , Ferritin 499.0 8.0-252.0 ng/mL Performing Lab: see note ML - [facility] LB IRON AND TIBC Reviewed date:01/05/2025 07:25:49 PM Interpretation: Performing Lab: Notes/Report: [facility] , Iron 69.0 50.0-170.0 ug/dL Total Iron Binding Capacity 207.0 250.0-450.0 ug/dL Percent Iron Saturation 33.3 Performing Lab: see note ML - [facility] LB MAGNESIUM Reviewed date:01/05/2025 07:25:49 PM Interpretation: Performing Lab: Notes/Report: [facility] , Magnesium 1.9 1.8-2.4 mg/dL Performing Lab: see note ML - [facility] LB RENAL FUNCTION PANEL Reviewed date:01/05/2025 07:25:49 PM Interpretation: Performing Lab: Notes/Report: [facility] , Sodium 141 136-145 mmol/L Potassium [...] g/dL Performing Lab: see note ML - [facility] UA RANDOM W or MICROSCOPIC Reviewed date:01/05/2025 07:25:49 PM Interpretation: Performing Lab: Notes/Report: [facility] , Color Urine LT. YELLOW YELLOW Clarity Urine CLOUDY CLEAR Specific [place] Urine 1.020 1.005-1.025 pH Urine 6.0 5.0-9.0 [...] #/LPF Performing Lab: see note ML - [facility] LB URIC ACID SERUM Reviewed date:01/05/2025 07:25:49 PM Interpretation: Performing Lab: Notes/Report: [facility] , Uric Acid 3.9 2.6-6.0 mg/dL Performing Lab: see note - [facility] LB URINE T PROTEIN CREAT RATIO Reviewed date:01/05/2025 07:25:49 PM Interpretation: Performing Lab: Notes/Report: [facility] , Total Protein Urine Random 108.9 <=11.9 mg/dL Creatinine Urine Random 157.18 20.00-30 0.00 mg/dL Protein Creatinine Ratio Urine 0.69 Performing Lab: see note - [facility] LB CBC no Diff (Hemogram) Reviewed date:01/05/2025 07:25:49 PM Interpretation: Performing Lab: Notes/Report: [facility] , White Blood Count 6.0 4.0-11.0 [...] 9.4 9.5-13.5 fL Performing Lab: see note - [facility] LB PTH, Intact Reviewed date:01/06/2025 08:09:23 PM Interpretation: Performing Lab: Notes/Report: [facility] , PTH, Intact 73 15-65 pg/mL Performed at: - [facility] [address] [id number] Crematorium Operator: Ashok Benson PhD, Phone: [phone] Performing Lab: see note - [facility] LB XR knee RT 4V Reviewed date:04/14/2025 07:10:06 PM Interpretation: Performing Lab: Notes/Report: Source Facility: [facility] [place] [address] [place] [address] XRay Report Signed Patient: KYLAH ROBIN MR#: [id number] : 1945 Acct:[id number] Age/Sex: 79 / F ADM Date: 04/14/25 Loc: RAD Attending Dr: Dhruv Rubi M.D. Ordering Physician: Dhruv Rubi M.D. Date of Service: 04/14/25 Procedure(s): XR knee RT 4V Accession Number(s): [id number] cc: Dhruv Rubi M.D. [place] [address] Patient Name: KYLAH ROBIN MRN: [id number] date: 1945 Sex: F Assigned Patient Location: RAD Current Patient Location: RAD Accession/Order Number: [id number] Exam Date: 04/14/2025 09:52 Report Date: 04/14/2025 [...] Good M.D. 04/14/2025 9:55 AM Dictation Location: [place] [address] Electronically authenticated by: [id number] Y Date: 04/14/2025 09:55 Dictated By: Cary Good M.D. Signed By: 04/14/25 0958 DD/ 4 TD/TT: Terrestrial Ecologist: [place] [address] XRay Report Signed Patient: CINDI ROBIN MR#: [id number] : 1945 Acct:[id number] Age/Sex: 79 / F ADM Date: 04/14/25 Loc: RAD Attending Dr: Violeta Rubi M.D. Ordering Physician: Dhruv Rubi M.D. Date of Service: 04/14/25 Procedure(s): XR kne e RT 4V Accession Number(s): [id number] cc: Dhruv Rubi M.D. [place] [address] Patient Name: KYLAH ROBIN MRN: [facility]:[id number] date: 1945 Sex: F Assigned Patient Location: RAD Current Patient Loca tion: RAD Accession/Order Numb er: [id number] Exam Date: 04/14/2025 09:52 Report Date: 04/14/2025 [...] Good M.D. 04/14/2025 9:55 AM Dictation Location: [place] [address] Electronically authenticated by: [id number] Y Date: 04/14/2025 09:55 Dictated By: Cary Good M.D. Signed By: 04/14/25 0958 DD/ 4 TD/TT: Terrestrial Ecologist: BNP Reviewed date:04/22/2025 06:54:09 PM Interpretation: Performing Lab: Notes/Report: [facility] , NT Pro B Type Natriuretic Pept 1188.0 <=1800.0 pg/mL Performing Lab: see note ML - [facility] LB CBC AUTO DIFF Reviewed date:04/22/2025 06:54:09 PM Interpretation: Performing Lab: Notes/Report: [facility] , White Blood Count 9.3 4.0-11.0 [...] Performing Lab: see note ML - [facility] LB PROF CHEM 8 (BAS METB) Reviewed date:04/22/2025 06:54:09 PM Interpretation: Performing Lab: Notes/Report: [facility] , Sodium 141 136-145 mmol/L Potassium [...] mg/dL Performing Lab: see note ML - [facility] Troponin I High Sensitivity Reviewed date:04/22/2025 06:54:09 PM Interpretation: Performing Lab: Notes/Report: [facility] , Troponin I High Sensitivity 11.0 4.0-51.3 pg/mL CUT-OFF POINTS HAVE BEEN ESTABLISHED BASED ON THE FOURTH UNIVERSAL DEFINITION OF MYOCARDIAL INFARCTION. THE UPPER REFERENCE LIMIT (URL) OF TROPONIN, DEFINED THE 99TH PERCENTILE OF cTnI DISTRIBUTION IN A REFERENCE POPULATION, HAS BEEN CONFIRMED THE DECISION THRESHOLD FOR [place] DIAGNOSIS. 99TH PERCENTILE = 51.4 PG/ML NOTE: HIGH-SENSITIVITY TROPONIN ASSAY IS NOT INTENDED TO BE USED IN ISOLATION BUT SHOULD BE INTERPRETED IN CONJUNCTION WITH OTHER DIAGNOSTIC AND CLINICAL INFORMATION. Performing Lab: see note ML - [facility] UA Micro, reflex to culture Reviewed date:04/22/2025 06:54:09 PM Interpretation: Performing Lab: Notes/Report: [facility] , Color Urine LT. YELLOW YELLOW Clarity Urine CLEAR CLEAR Specific [place] Urine 1.015 1.005-1.025 pH Urine 5.5 5.0-9.0 [...] SEEN NONE SEEN #/LPF Urine Culture Indicated [place] Performing Lab: see note ML - [facility] LB Urine Culture - [facility] Reviewed date:04/26/2025 08:14:27 PM Interpretation: Performing Lab: Notes/Report: [facility] , Urine Culture - [facility] See Below For Report Urine Culture - [facility] [place] performed at [facility] O:ECESBL Isolated Urine Culture - [facility] Count Organism: 1.1 Antibiotic Interpretation AIDEN Status Urine Culture - [facility] [address], [place] [address] Urine Culture - [facility] Testing performed at [facility] O:ECESBL Isolated Urine Culture - [facility] Count Organism: 1.1 Antibiotic Interpretation AIDEN Status Urine Culture - [facility] See Below For Report Urine Culture - [facility] Testing performed at [facility] O:ECESBL Isolated Urine Culture - [facility] Count Organism: 1.1 Antibiotic Interpretation AIDEN Status Urine Culture - [facility] See Below For Report Urine Culture - [facility] Testing performed at [facility] O:ECESBL Isolated Urine Culture - [facility] Count Organism: 1.1 Antibiotic Interpretation AIDEN Status [facility]rine Culture - [facility] >100,000 Urine Culture - [facility] Testing performed at [facility] O:ECESBL Isolated Urine Culture - [facility] Count Organism: 1.1 Antibiotic Interpretation AIDEN Status Urine Culture - [facility] See Below For Report Urine Culture - [facility] Testing performed at [facility] O:ECESBL Isolated Urine Culture - [facility] Count Organism: 1.1 Antibiotic Interpretation AIDEN Status Urine Culture - [facility] Amikacin S F Urine Culture - [facility] Testing performed at [facility] O:ECESBL Isolated Urine Culture - [facility] Count Organism: 1.1 Antibiotic Interpretation AIDEN Status Urine Culture - [facility] Amoxicillin/Clavula jocelyn S F Urine Culture - [facility] Testing performed at [facility] O:ECESBL Isolated Urine Culture - [facility] Count Organism: 1.1 Antibiotic Interpretation AIDEN Status Urine Culture - [facility] Ampicillin R F Urine Culture - [facility] Testing performed at [facility] O:ECESBL Isolated Urine Culture - [facility] Count Organism: 1.1 Antibiotic Interpretation AIDEN Status Urine Culture - [facility] Aztreonam R F Urine Culture - [facility] Testing performed at [facility] O:ECESBL Isolated Urine Culture - [facility] Count Organism: 1.1 Antibiotic Interpretation AIDEN Status Urine Culture - [facility] Ceftazidime R F Urine Culture - [facility] Testing performed at [facility] O:ECESBL Isolated Urine Culture - [facility] Count Organism: 1.1 Antibiotic Interpretation AIDEN Status Urine Culture - [facility] Ceftazidime/Avibactam S F Urine Culture - [facility] Testing performed at [facility] O:ECESBL Isolated Urine Culture - [facility] Count Organism: 1.1 Antibiotic Interpretation AIDEN Status Urine Culture - [facility] Ceftolozane/Tazobac alvarez S F Urine Culture - [facility] Testing performed at [facility] O:ECESBL Isolated Urine Culture - [facility] Count Organism: 1.1 Antibiotic Interpretation AIDEN Status Urine Culture - [facility] Ciprofloxacin R F Urine Culture - [facility] Testing performed at [facility] O:ECESBL Isolated Urine Culture - [facility] Count Organism: 1.1 Antibiotic Interpretation AIDEN Status Urine Culture - [facility] Ertapenem S F Urine Culture - [facility] Testing performed at [facility] O:ECESBL Isolated Urine Culture - [facility] Count Organism: 1.1 Antibiotic Interpretation AIDEN Status Urine Culture - [facility] Gentamicin R F Urine Culture - [facility] Testing performed at [facility] O:ECESBL Isolated Urine Culture - [facility] Count Organism: 1.1 Antibiotic Interpretation AIDEN Status Urine Culture - [facility] Levofloxacin R F Urine Culture - [facility] Testing performed at [facility] O:ECESBL Isolated Urine Culture - [facility] Count Organism: 1.1 Antibiotic Interpretation AIDEN Status Urine Culture - [facility] Meropenem S F Urine Culture - [facility] Testing performed at [facility] O:ECESBL Isolated Urine Culture - [facility] Count Organism: 1.1 Antibiotic Interpretation AIDEN Status Urine Culture - [facility] Meropenem/Vaborbactam S F Urine Culture - [facility] Testing performed at [facility] O:ECESBL Isolated Urine Culture - [facility] Count Organism: 1.1 Antibiotic Interpretation AIDEN Status Urine Culture - [facility] Nitrofurantoin S F Urine Culture - [facility] Testing performed at [facility] O:ECESBL Isolated Urine Culture - [facility] Count Organism: 1.1 Antibiotic Interpretation AIDEN Status Urine Culture - [facility] Tetracycline S F Urine Culture - [facility] Testing performed at [facility] O:ECESBL Isolated Urine Culture - [facility] Count Organism: 1.1 Antibiotic Interpretation AIDEN Status Urine Culture - [facility] Tigecycline S F Urine Culture - [facility] Testing performed at [facility] O:ECESBL Isolated Urine Culture - [facility] Count Organism: 1.1 Antibiotic Interpretation AIDEN Status Urine Culture - [facility] Tobramycin R F Urine Culture - [facility] Testing performed at [facility] O:ECESBL Isolated Urine Culture - [facility] Count Organism: 1.1 Antibiotic Interpretation AIDEN Status Urine Culture - [facility] Ampicillin/Sulbactam S F Urine Culture - [facility] Testing performed at [facility] O:ECESBL Isolated Urine Culture - [facility] Count Organism: 1.1 Antibiotic Interpretation AIDEN Status Urine Culture - [facility] Cefazolin R F Urine Culture - [facility] Testing performed at [facility] O:ECESBL Isolated Urine Culture - [facility] Count Organism: 1.1 Antibiotic Interpretation AIDEN Status Urine Culture - [facility] Cefepime R F Urine Culture - [facility] Testing performed at [facility] O:ECESBL Isolated Urine Culture - [facility] Count Organism: 1.1 Antibiotic Interpretation AIDEN Status Urine Culture - [facility] Ceftriaxone R F Urine Culture - [facility] Testing performed at [facility] O:ECESBL Isolated Urine Culture - [facility] Count Organism: 1.1 Antibiotic Interpretation AIDEN Status Urine Culture - [facility] Cefuroxime R F Urine Culture - [facility] Testing performed at [facility] O:ECESBL Isolated Urine Culture - [facility] Count Organism: 1.1 Antibiotic Interpretation AIDEN Status Urine Culture - [facility] Piperacillin/Tazoba ctam S F Urine Culture - [facility] Testing performed at [facility] O:ECESBL Isolated Urine Culture - [facility] Count Organism: 1.1 Antibiotic Interpretation AIDEN Status Urine Culture - [facility] Trimethoprim/Sulfa R F Urine Culture - [facility] Testing performed at [facility] O:ECESBL Isolated Urine Culture - [facility] Count Organism: 1.1 Antibiotic Interpretation AIDEN Status Performing Lab: see note ML - [facility] LB SEE REPORT - Associate Professor Of Engineering Id information not found for OBX-specific independent producer legend XR chest 1V Reviewed date:04/22/2025 06:54:09 PM Interpretation: Performing Lab: Notes/Report: Source Facility: [place] [address] [place] [address] XRay Report Signed Patient: KYLAH ROBIN MR#: [id number] : 1945 Acct:[id number] Age/Sex: 79 / F ADM Date: 04/21/25 Loc: ER Attending Dr: Ordering Physician: Dmitriy Lynne Date of Service: 04/21/25 Procedure(s): XR chest 1V Accession Number(s): [id number] cc: Dhruv Moya M.D. [address] [id number] Patient Name: KYLAH ROBIN MRN: [id number] date: 1945 Sex: F Assigned Patient Location: ER Current Patient Location: ER Accession/Order Number: [id number] Exam Date: 04/21/2025 21:57 Report Date: 04/21/2025 [...] Grey M.D. 04/21/2025 9:58 PM Dictation Location: [place] [address] Electronically authenticated by: [id number] Y Date: 04/21/2025 21:58 Dictated By: Juan Grey M.D. Signed By: 04/21/252199 DD/ 57 TD/TT: Terrestrial Ecologist: [place] [address] XRay Report Signed Patient: CINDI ROBIN MR#: [id number] : 1945 Acct:[id number] Age/Sex: 79 / F ADM Date: 04/21/25 Loc: ER Attending Dr: Ordering Physician: Dmitriy Lynne Date of Service: 04/21/25 Procedure(s): XR chest 1V Accession Number(s): [id number] cc: Dhruv Moya M.D. [address] [address] Patient Name: KYLAH ROBIN MRN: [id number] date: 1945 Sex: F Assigned Patient Location: ER Current Patient Loca tion: ER Accession/Order Numb er: [id number] Exam Date: 04/21/2025 21:57 Report Date: 04/21/2025 [...] Grey M.D. 04/21/2025 9:58 PM Dictation Location: [place] [address] Electronically authenticated by: [id number] Y Date: 04/21/2025 21:58 Dictated By: Juan Grey M.D. Signed By: 04/21/252199 DD/ 57 TD/TT: Terrestrial Ecologist: CBC AUTO DIFF Reviewed date:05/02/2025 09:35:15 PM Interpretation: Performing Lab: Notes/Report: [facility] , White Blood Count 16.3 4.0-11.0 [...] 3/uL Performing Lab: see note ML - [facility] LB LACTATE or LACTIC ACID Reviewed date:05/02/2025 09:35:15 PM Interpretation: Performing Lab: Notes/Report: [facility] , Lactate/Lactic Acid 2.7 0.4-2.0 mmol/L RESULT S CALLED TO DMITRIY LYNNE Performing Lab: see note ML - [facility] LB PROF 14(COMP METB) Reviewed date:05/02/2025 09:35:15 PM Interpretation: Performing Lab: Notes/Report: [facility] , Sodium 133 136-145 mmol/L Potassium [...] Performing Lab: see note ML - [facility] LB SARS-CoV-2 Ag* Reviewed date:05/02/2025 09:35:15 PM Interpretation: Performing Lab: Notes/Report: [facility] , SARS-CoV-2 Ag POSITIVE NEGATIVE This [...] Performing Lab: see note ML - [facility] LB UA Micro, reflex to culture Reviewed date:05/02/2025 09:35:15 PM Interpretation: Performing Lab: Notes/Report: [facility] , Color Urine LT. YELLOW YELLOW Clarity Urine CLEAR CLEAR Specific [place] Urine 1.020 1.005-1.025 pH Urine 6.0 5.0-9.0 [...] Performing Lab: see note ML - [facility] LB XR chest 1V Reviewed date:05/02/2025 09:35:15 PM Interpretation: Performing Lab: Notes/Report: Source Facility: [facility] [place] [address] [address] XRay Report Signed Patient: KYLAH ROBIN MR#: [id number] : 1945 Acct:[id number] Age/Sex: 79 / F ADM Date: 04/30/25 Loc: ER Attending Dr: Ordering Physician: Dmitriy Lynne Date of Service: 04/30/25 Procedure(s): XR chest 1V Accession Number(s): [id number] cc: Dmitriy Lynne; Dhruv Rubi M.D. [place] [id number] Patient Name: KYLAH ROBIN MRN: [facility]:[id number] date: 1945 Sex: F Assigned Patient Location: ER Current Patient Location: ED.MAIN Accession/Order Number: [id number] Exam Date: 04/30/2025 22:00 Report Date: 04/30/2025 [...] Hernandez M.D. 04/30/2025 10:01 PM Dictation Location: [place] [address] Electronically authenticated by: [id number] Y Date: 04/30/2025 22:01 Dictated By: Mariusz Hernandez D.O. Signed By: 04/30/252202 DD/ 00 TD/TT: Terrestrial Ecologist: [place] [id number] XRay Report Signed Patient: CINDI ROBIN MR#: [id number] : 1945 Acct:[id number] Age/Sex: 79 / F ADM Date: 04/30/25 Loc: ER Attending Dr: Ordering Physician: Dmitriy Lynne Date of Service: 04/30/25 Procedure(s): XR chest 1V Accession Number(s): [id number] cc: Dimtriy Lynne; Dhruv Rubi M.D. [place] [address] Patient Name: KYLAH ROBIN MRN: [id number] date: 1945 Sex: F Assigned Patient Location: ER Current Patient Loca tion: ED.MAIN Accession/Order Numb er: [id number] Exam Date: 04/30/2025 22:00 Report Date: 04/30/2025 [...] Hernandez M.D. 04/30/2025 10:01 PM Dictation Location: [place] [address] Electronically authenticated by: [id number] Y Date: 04/30/2025 22:01 Dictated By: Vern Hernandez D.O. Signed By: 04/30/252202 DD/ 00 TD/TT: Terrestrial Ecologist: Urine Culture - [facility] Reviewed date:05/28/2025 01:00:41 PM Interpretation: Performing Lab: Notes/Report: [facility] , Urine Culture - [facility] See Below For Report Urine Culture - [facility] Testing performed at [facility] O:ECESBL Isolated Urine Culture - [facility] Count Organism: 1.1 Antibiotic Interpretation AIDEN Status Urine Culture - [facility] [address] [place] [address] Urine Culture - [facility] Testing performed at [facility] O:ECESBL Isolated Urine Culture - [facility] Count Organism: 1.1 Antibiotic Interpretation AIDEN Status Urine Culture - [facility] See Below For Report Urine Culture - [facility] Testing performed at [facility] O:ECESBL Isolated Urine Culture - [facility] Count Organism: 1.1 Antibiotic Interpretation AIDEN Status Urine Culture - [facility] See Below For Report Urine Culture - [facility] Testing performed at [facility] O:ECESBL Isolated Urine Culture - [facility] Count Organism: 1.1 Antibiotic Interpretation AIDEN Status Urine Culture - [facility] >100,000 Urine Culture - [facility] Testing performed at [facility] O:ECESBL Isolated Urine Culture - [facility] Count Organism: 1.1 Antibiotic Interpretation AIDEN Status Urine Culture - [facility] See Below For Report Urine Culture - [facility] Testing performed at [facility] O:ECESBL Isolated Urine Culture - [facility] Count Organism: 1.1 Antibiotic Interpretation AIDEN Status Urine Culture - [facility] Amikacin S F Urine Culture - [facility] Testing performed at [facility] O:ECESBL Isolated Urine Culture - [facility] Count Organism: 1.1 Antibiotic Interpretation AIDEN Status Urine Culture - [facility] Amoxicillin/Clavula jocelyn S F Urine Culture - [facility] Testing performed at [facility] O:ECESBL Isolated Urine Culture - [facility] Count Organism: 1.1 Antibiotic Interpretation AIDEN Status Urine Culture - [facility] Ampicillin R F Urine Culture - [facility] Testing performed at [facility] O:ECESBL Isolated Urine Culture - [facility] Count Organism: 1.1 Antibiotic Interpretation AIDEN Status Urine Culture - [facility] Aztreonam R F Urine Culture - [facility] Testing performed at [facility] O:ECESBL Isolated Urine Culture - [facility] Count Organism: 1.1 Antibiotic Interpretation AIDEN Status Urine Culture - [facility] Ceftazidime R F Urine Culture - [facility] Testing performed at [facility] O:ECESBL Isolated Urine Culture - [facility] Count Organism: 1.1 Antibiotic Interpretation AIDEN Status Urine Culture - [facility] Ceftazidime/Avibactam S F Urine Culture - [facility] Testing performed at [facility] O:ECESBL Isolated Urine Culture - [facility] Count Organism: 1.1 Antibiotic Interpretation AIDEN Status Urine Culture - [facility] Ceftolozane/Tazobac alvarez S F Urine Culture - [facility] Testing performed at [facility] O:ECESBL Isolated Urine Culture - [facility] Count Organism: 1.1 Antibiotic Interpretation AIDEN Status Urine Culture - [facility] Ciprofloxacin R F Urine Culture - [facility] Testing performed at [facility] O:ECESBL Isolated Urine Culture - [facility] Count Organism: 1.1 Antibiotic Interpretation AIDEN Status Urine Culture - [facility] Ertapenem S F Urine Culture - [facility] Testing performed at [facility] O:ECESBL Isolated Urine Culture - [facility] Count Organism: 1.1 Antibiotic Interpretation AIDEN Status Urine Culture - [facility] Gentamicin R F Urine Culture - [facility] Testing performed at [facility] O:ECESBL Isolated Urine Culture - [facility] Count Organism: 1.1 Antibiotic Interpretation AIDEN Status Urine Culture - [facility] Levofloxacin R F Urine Culture - [facility] Testing performed at [facility] O:ECESBL Isolated Urine Culture - [facility] Count Organism: 1.1 Antibiotic Interpretation AIDEN Status Urine Culture - [facility] Meropenem S F Urine Culture - [facility] Testing performed at [facility] O:ECESBL Isolated Urine Culture - [facility] Count Organism: 1.1 Antibiotic Interpretation AIDEN Status Urine Culture - [facility] Meropenem/Vaborbact am S F Urine Culture - [facility] Testing performed at [facility] O:ECESBL Isolated Urine Culture - [facility] Count Organism: 1.1 Antibiotic Interpretation AIDEN Status Urine Culture - [facility] Nitrofurantoin S F Urine Culture - [facility] Testing performed at [facility] O:ECESBL Isolated Urine Culture - [facility] Count Organism: 1.1 Antibiotic Interpretation AIDEN Status Urine Culture - [facility] Tetracycline S F Urine Culture - [facility] Testing performed at [facility] O:ECESBL Isolated Urine Culture - [facility] Count Organism: 1.1 Antibiotic Interpretation AIDEN Status Urine Culture - [facility] Tigecycline S F Urine Culture - [facility] Testing performed at [facility] O:ECESBL Isolated Urine Culture - [facility] Count Organism: 1.1 Antibiotic Interpretation AIDEN Status Urine Culture - [facility] Tobramycin R F Urine Culture - [facility] Testing performed at [facility] O:ECESBL Isolated Urine Culture - [facility] Count Organism: 1.1 Antibiotic Interpretation AIDEN Status Urine Culture - [facility] Ampicillin/Sulbactam S F Urine Culture - [facility] Testing performed at [facility] O:ECESBL Isolated Urine Culture - [facility] [place] Count Organism: 1.1 Antibiotic Interpretation AIDEN Status Urine Culture - [facility] Cefazolin R F Urine Culture - [facility] Testing performed at [facility] O:ECESBL Isolated Urine Culture - [facility] [place] Count Organism: 1.1 Antibiotic Interpretation AIDEN Status Urine Culture - [facility] Cefepime R F Urine Culture - [facility] Testing performed at [facility] O:ECESBL Isolated Urine Culture - [facility] Count Organism: 1.1 Antibiotic Interpretation AIDEN Status Urine Culture - [facility] Ceftriaxone R F Urine Culture - [facility] Testing performed at [facility] O:ECESBL Isolated Urine Culture - [facility] [place] Count Organism: 1.1 Antibiotic Interpretation AIDEN Status Urine Culture - [facility] Cefuroxime R F Urine Culture - [facility] Testing performed at [facility] O:ECESBL Isolated Urine Culture - [facility] Count Organism: 1.1 Antibiotic Interpretation AIDEN Status Urine Culture - [facility] Piperacillin/Tazoba ctam S F Urine Culture - [facility] Testing performed at [facility] O:ECESBL Isolated Urine Culture - [facility] Count Organism: 1.1 Antibiotic Interpretation AIDEN Status Urine Culture - [facility] Trimethoprim/Sulfa R F Urine Culture - [facility] Testing performed at [facility] O:ECESBL Isolated Urine Culture - [facility] Count Organism: 1.1 Antibiotic Interpretation AIDEN Status Performing Lab: see note ML - [facility] LB SEE REPORT - Associate Professor Of Engineering Id information not found for OBX-specific independent producer legend CBC AUTO DIFF Reviewed date:09/20/2024 05:06:04 PM Interpretation: Performing Lab: Notes/Report: [facility] , White Blood Count 15.3 4.0-11.0 [...] 3/uL Performing Lab: see note ML - [facility] LB INFLUENZA A AND B AG Reviewed date:09/20/2024 05:06:04 PM Interpretation: Performing Lab: Notes/Report: [facility] , Influenza Virus A Antigen Negative [...] test. Performing Lab: see note ML - [facility] LB LACTATE or LACTIC ACID Reviewed date:09/20/2024 05:06:04 PM Interpretation: Performing Lab: Notes/Report: [facility] , Lactate/Lactic Acid 1.7 0.4-2.0 mmol/L Performing Lab: see note ML - [facility] LB PROF 14(COMP METB) Reviewed date:09/20/2024 05:06:04 PM Interpretation: Performing Lab: Notes/Report: [facility] , Sodium 135 136-145 mmol/L Potassium [...] 0.8 Performing Lab: see note ML - [facility] LB UA (CLEAN or CATCH) FNPS or M ICRO IF IND. Reviewed date:09/20/2024 05:06:04 PM Interpretation: Performing Lab: Notes/Report: [facility] , Color Urine YELLOW YELLOW Clarity Urine CLEAR CLEAR Specific [place] Urine 1.020 1.005-1.025 pH Urine 5.5 5.0-9.0 Protein Urine 100 NEG/TRACE mg/dL Glucose Urine UA NEGATIVE NEGATIVE mg/dL Bilirubin Urine NEGATIVE NEGATIVE Ketones Urine NEGATIVE NEGATIVE mg/dL Blood Urine NEGATIVE NEGATIVE Nitrite Urine NEGATIVE NEGATIVE Urobilinogen Urine 0.2 0.2-1.0 EU/dL Leukocyte Esterase Urine NEGATIVE NEGATIVE Urine Microscopic Indicated YES Performing Lab: see note ML - [facility] LB URINE MICROSCOPIC ONLY Reviewed date:09/20/2024 05:06:04 PM Interpretation: Performing Lab: Notes/Report: [facility] , WBC Urine NONE SEEN NONE SEEN #/HPF RBC Urine 0-2 0-2 #/HPF Bacteria Urine TRACE NONE SEEN #/HPF Mucus Urine NONE SEEN NONE SEEN Squamous Epithelial Cell Urine MODERATE NONE/RARE #/LPF Crystals Seen? None Seen None Seen #/HPF Cast Seen? NONE SEEN NONE SEEN #/LPF Urine Culture Indicated NO Performing Lab: see note ML - [facility] LB Troponin I High Sensitivity Reviewed date:09/20/2024 05:06:04 PM Interpretation: Performing Lab: Notes/Report: [facility] , Troponin I High Sensitivity 12.6 4.0-51.3 pg/mL CUT-OFF POINTS HAVE BEEN ESTABLISHED BASED ON THE FOURTH UNIVERSAL DEFINITION OF MYOCARDIAL INFARCTION. THE UPPER REFERENCE LIMIT (URL) OF TROPONIN, DEFINED THE 99TH PERCENTILE OF cTnI DISTRIBUTION IN A REFERENCE POPULATION, HAS BEEN CONFIRMED THE DECISION THRESHOLD FOR [place] DIAGNOSIS. 99TH PERCENTILE = 51.4 PG/ML NOTE: HIGH-SENSITIVITY TROPONIN ASSAY IS NOT INTENDED TO BE USED IN ISOLATION BUT SHOULD BE INTERPRETED IN CONJUNCTION WITH OTHER DIAGNOSTIC AND CLINICAL INFORMATION. Performing Lab: see note ML - [facility] LB TSH W/ REFLEX FT4 Reviewed date:09/20/2024 05:06:04 PM Interpretation: Performing Lab: Notes/Report: [facility] , TSH W/ REFLEX FT4 1.297 0.358-3.740 uIU/mL Performing Lab: see note ML - [facility] LB SARS-CoV-2 Ag* Reviewed date:09/20/2024 05:06:04 PM Interpretation: Performing Lab: Notes/Report: [facility] , SARS-CoV-2 Ag NEGATIVE NEGATIVE This [...] Performing Lab: see note ML - [facility] LB ECG 12 lead Reviewed date:09/22/2024 12:37:02 PM Interpretation: Performing Lab: Notes/Report: Source Facility: [facility] [place] [address] [place] [address] Electrocardiograph Report Signed Patient: KYLAH ROBIN MR#: [id number] : 1945 Acct:[id number] Age/Sex: 78 / F ADM Date: 09/20/24 Loc: ER Attending Dr: Ordering Physician: Luis Lugo Date of Service: 09/20/24 Procedure(s): ECG 12 lead Accession Number(s): [id number] cc: [facility] Test Date: 2024-09-20 Pat Name: KYLAH ROBIN Department: Room: - Gender: Female Cardiac Catheterization Technician: : 1945 Requested By: DHRUV RUBI Order Number: [id number] Reading MD: DHRUV RUBI Measurements Intervals [place] Rate: 83 P: 43 WA: 156 QRS: 13 QRSD: 86 T: 57 QT: 394 QTc: 434 Interpretive Statements 1100 Sinus rhythm 4068 Nonspecific Twave abnormality 9130 borderline ECG Compared to ECG 03/01/2024 19:45:19 T-wave abnormality no longer present Electronically Signed On 09-22-2024 6:58:14 EST by DHRUV RUBI Dictated By: Dhruv Rubi M.D. Signed By: 09/22/24 0658 DD/ 1521 TD/TT: Terrestrial Ecologist: [place] [address] Electrocardiograph Report Signed Patient: CINDI ROBIN MR#: [id number] : 1945 Acct:[id number] Age/Sex: 78 / F ADM Date: 09/20/24 Loc: ER Attending Dr: Ordering Physician: Luis Lugo Date of Service: 09/20/24 Procedure(s): ECG 12 lead Accession Number(s): [id number] cc: [facility] Test Date: 2024-09-20 Pat Name: KYLAH RODRIGUES Department: 70 Room: - Gender: Female Cardiac Catheterization Technician: : 1945 Requested By: DHRUV RUBI Order Number: [id number] Reading MD: DHRUV RUBI Measurements Intervals [place] Rate: 83 P: 43 WA: 156 QRS: 13 QRSD: 86 T: 57 QT: 394 QTc: 434 Interpretive Statements 1100 Sinus rhythm 4068 Nonspecific Twa ve abnormality 9130 borderline ECG Compared to ECG 03/01/2024 19:45:19 T-wave abnormality n o longer present Electronically Chelita d On 09-22-2024 6:58:14 EST by DHRUV RUBI Dictated By: Gissel Rubi M.D. Signed By: 09/22/24 0658 DD/ 1521 TD/TT: Terrestrial Ecologist: CT abdomen pelvis wo con Reviewed date:09/20/2024 05:06:04 PM Interpretation: Performing Lab: Notes/Report: Source Facility: [place] [address] CT Scan Report Signed Patient: KYLAH ROBIN MR#: [id number] : 1945 Acct:[id number] Age/Sex: 78 / F ADM Date: 09/20/24 Loc: ER Attending Dr: Ordering Physician: Luis Lugo Date of Service: 09/20/24 Procedure(s): CT abdomen pelvis wo con Accession Number(s): [id number] cc: Dhruv Rubi M.D. [place] [address] Patient Name: KYLAH ROBIN MRN: [id number] date: 1945 Sex: F Assigned Patient Location: ER Current Patient Location: ER Accession/Order Number: [id number] Exam Date: 09/20/2024 15:52 Report Date: 09/20/2024 [...] M.D. Signed By: 09/20/241622 DD/ 19 TD/TT: Terrestrial Ecologist: [place] [address] CT Scan Report Signed Patient: CINDI ROBIN MR#: [id number] : 1945 Acct:[id number] Age/Sex: 78 / F ADM Date: 09/20/24 Loc: ER Attending Dr: Ordering Physician: Luis Lugo Date of Service: 09/20/24 Procedure(s): CT abd omen pelvis wo con Accession Number(s): [id number] cc: Dhruv Rubi M.D. [address] [address] Patient Name: KYLAH ROBIN MRN: [id number] date: 1945 Sex: F Assigned Patient Location: ER Current Patient Loca tion: ER Accession/Order Numb er: [id number] Exam Date: 15:52 Report Date: 09/20/2024 16:20 [...] M.D. Signed By: 09/20/241622 DD/ 19 TD/TT: Terrestrial Ecologist: Reason For Referral No Information Medications Medication SIG (Take, Route, Frequency, Duration) Notes Start Date End Date Status Ferrous Sulfate 325 (65 Fe) MG 1 tablet Orally Twice Daily Active Pantoprazole Sodium 40 mg TAKE 1 TABLET BY MOUTH DAILY for 90 Active OneTouch Ultra Test test blood glucose d aily for 90 days Active OneTouch Ultra Blue Active OneTouch Ultra 2 Act janet NovoLOG FlexPen 100 UNIT/ML 12 in mornin g, 16 at lunch, 22 at supper Subcutaneous Active Nitroglycerin 0.4 MG as directed Sublingual PRN Active Levothyroxine Sodium 100 mcg TAKE 1 TABLET BY MOUTH IN THE MORNING ON AN EMPTY STOMACH for 90 Active Lasix 20 MG 1 tablet Orally Once a day Active Lancets Super Thin A ctive Isosorbide Mononitrate ER 120 MG 1 tablet Oral once daily for 30 days Active Tresiba FlexTouch 100 UNIT/ML 30 units Subcutaneous Twice Daily Active hydrALAZINE HCl 50 MG 1 tablet with food Orally Three times a day Active Synvisc One 48 MG/6ML Inject Intra-artic ular In right knee for 180 days 04/20/2025 Active levoFLOXacin 750 MG 1 tablet Orally Once a day for 10 day(s) 06/08/2025 Active Benzonatate 200 MG 1 capsule Orally Thr ee times a day for 7 days 06/08/2025 Active Lipitor 80 MG 1 tablet Orally Once a day for 90 days Active Liothyronine Sodium 5 mcg Take 1 tablet orally once daily for 30 days Active predniSONE 20 MG 3 tablets Orally Onc e a day for 5 days 06/08/2025 Active cloNIDine HCl 0.1 MG 1 tablet every four hours as needed Orally Q4 for 30 days As needed Active Carvedilol 25 mg TAKE 1 TABLET BY CHA TWICE DAILY (7AM and 7PM) WITH FOOD for 30 Active Magnesium Oxide 400 MG 1 tablet Orally t hree times daily Active Aspirin 81 81 MG 1 tablet Orally Once a day Active Allopurinol 300 MG 1 tablet Orally Once a day for 30 days Active Accu-Chek Holly Plus w/Device as directed Active Cefdinir 300 MG 2 capsule Orally onc e a day for 10 days 06/08/2025 Active Immunizations Vaccine Route Administration Date Status Comme nts Flu, Fluad (1367-9521) (25240) 65 yrs+, single-dose syringe IM Intramuscular 07/11/2023 Administered Flu, Fluad (72038) 65 yrs and older, single-dose syringe (5170-8025) IM Intramuscular 07/08/2024 Administered Social History Tobacco [...] Problem Status W/U Status Risk Notes Problem 377396315 Peripheral vascular disease, unspecified (I73.9) Active confirmed Problem 69137783 Age-related osteoporosis without current pathological fracture (M81.0) Active confirmed Problem 039465976 Chronic kidney disease, unspecified (N18.9) Active confirmed Problem 155748088 Anemia in chroni c kidney disease (D63.1) Active confirmed Problem Hypomagnesemia (742936096) Hypomagnesemia (E83.42) Active confirmed Problem Hyperkalemia (85238635) Hyperkalemia (E87.5) Active confirmed Problem Hypertensive heart failure (76324539) Hypertensive heart disease with heart failure (I11.0) Active confirmed Problem Unstable angina (8299473) Unstable angina (I20.0) Active confirmed Problem 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) Active confirmed Problem 960100660 Disorder of arteries and arterioles, unspecified (I77.9) Active confirmed Problem Osteoarthritis of knee (256115206) Unilateral primary osteoarthritis, left knee (M17.12) Active confirmed Problem Collapsed vertebra (56177803) Collapsed vertebra, not elsewhere classified, lumbar region, subsequent encounter for fracture with delayed healing (M48.56XG) Active confirmed Problem Chronic kidney disease stage 4 (904740466) Chronic kidney disease, stage 4 (severe) (N18.4) Active confirmed Problem Chest pain (84256850) Chest pain (R07.9) Active confirmed Problem Hyperlipidemia (00134037) Hyperlipidemia (E78.5) Active confirmed Problem Mitral regurgitation (25415008) Mitral regurgitation (I34.0) Active confirmed Problem Hypertension (27064939) Hypertension (I10) Active confirmed Problem Gastroesophageal reflux disease (977556391) GERD (gastroesophageal reflux disease) (K21.9) Active confirmed Problem Hypothyroidism (79359199) Hypothyroidism (E03.9) Active confirmed Problem Coronary artery disease (65072285) CAD (coronary artery disease) (I25.10) Active confirmed Problem Hypertension (38004379) HTN (hypertension) (I10) Active confirmed Problem Edema (92648117) Edema (R60.9) Active confirmed Problem Coronary artery disease (90921685) Coronary artery disease (I25.10) Active confirmed Problem Arthritis (0134114) Arthritis (M19.90) Active c onfirmed Problem Osteopenia (169076415) Osteopenia (M85.80) Active confirmed Problem Gout (58497138) Gout (M10.9) Active confirmed Problem Dyspnea (573389553) Dyspnea (R06.00) Active con firmed Problem Osteoarthritis of knee (323652007) Osteoarthritis of knee (M17.9) Active confirmed Problem Urinary tract infectious disease (36431407) UTI (urinary tract infection) (N39.0) Active confirmed Problem Paroxysmal atrial fibrillation (190610722) Paroxysmal atrial fibrillation (I48.0) Active confirmed Problem Acute sinusitis (10962336) Acute sinusitis (J01.90) Active confirmed Problem Allergic rhinitis (37574255) Allergic rhinitis (J30.9) Active confirmed Problem Diabetes mellitus type 2 (disorder) (16087275) DM2 (diabetes mellitus, type 2) (E11.9) Active confirmed Problem Long-term 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 (103677571) nursing home 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 (Z79.4) Active confirmed Problem Acute bronchitis (23221020) Acute bronchitis (J20.9) Active confirmed Problem Acquired hypothyroidism (825197105) Acquired hypothyroidism (E03.9) Active confirmed Problem Cellulitis (469839456) Cellulitis (L03.90) Active confirmed Problem Cataract (174239968) Cataract (H26.9) Active confirmed Problem Mitral insufficiency (47556486) Mitral insufficiency (I34.0) Active confirmed Problem Contact dermatitis (18979975) Contact dermatitis (L25.9) Active confirmed Problem Cervical arthritis (357912457) Cervical arthritis (M46.92) Active confirmed Problem Diabetic retinopathy (4141258) Diabetic retinopathy (E11.319) Active confirmed Problem 665742519 Low vitamin B12 level (E53.8) Active confirmed Problem Overweight (165674685) Over weight (E66.3) Active confirmed Problem Iron deficiency anemia (65091655) Anemia, iron deficiency (D50.9) Active confirmed Problem Ventricular hypertrophy (905848355) Ventricular hypertrophy (I51.7) Active confirmed Problem Primary hypothyroidism (59922409) Primary hypothyroidism (E03.9) Active confirmed Problem Iron deficiency anemia (91771550) Fe deficiency anemia (D50.9) Active confirmed Problem Hypertensive urgency (056553927) Hypertensive urgency (I10) Active confirmed Problem Vaginal discharge (351669456) Vaginal discharge (N89.8) Active confirmed Problem Type 2 diabetes mellitus with peripheral angiopathy (694842389) Diabetes mellitus type 2 with peripheral artery disease (E11.51) Active confirmed Problem At risk for falls (935880426) At risk for falls (Z91.81) Active confirmed Problem Mild nonproliferative retinopathy due to type 2 diabetes mellitus (318180171345532) Type 2 diabetes mellitus 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, 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) Active confirmed Problem Hypertensive urgency (958537785) Hypertensive urgency (I16.0) Active confirmed Problem Hypertensive emergency (122833477912398) Hypertensive emergency (I16.1) Active confirmed Problem Diabetic renal disease (298131217) 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) Active confirmed Problem Osteoarthritis of knee (340109703) Osteoarthritis of right knee (M17.11) Active confirmed Problem Diabetes mellitus (91092501) Diabetes mellitus (E11.9) Active confirmed Problem COVID-19 (183181051) COVID-19 (U07.1) Active confirmed Problem Chronic kidney disease stage 4 (994096346) Acute worsening of stage 4 chronic kidney disease (N18.4) Active confirmed Problem Pneumonia caused by Severe acute respiratory syndrome coronavirus (disorder) (528079034) Pneumonia due to Coronavirus disease 2019 (J12.82) Active confirmed Problem Low back pain (775838553) Low back pain, unspecified (M54.50) Active confirmed Problem Low back pain (finding) (081786094) Other low back pain (M54.59) Active confirmed Vital Signs Heart Rate 67 /min 12/31/2024 Oximetry 98 % 03/08/2025 Blood pressure diastolic 62 mm Hg 06/08/2025 Height 66 in 06/08/2025 Blood pressure systolic 168 mm Hg 06/08/2025 Weight 190.4 lbs 06/08/2025 BMI 30.73 kg/m2 06/08/2025 Encounters Encounter Location Date Provider Diagnosis [facility] [address] [place] [address] 06/02/2025 [facility] [address] [place] [address] 04/27/2025 [facility] [address] [place] [address] 05/02/2025 Jeff Rubi [facility] [address] [place] [address] 05/24/2025 [facility] [address] [facility] [place] [address] 05/25/2025 Jeff Rubi Dysuria R30.0 [facility] [address] [facility] [place] [address] 05/28/2025 Jeff [facility] [address] [facility] [place] [address] 06/08/2025 [facility] [address] [place] [address] 03/03/2025 [facility] [address] [facility] [place] [address] 03/10/2025 [facility] [address] [facility] [place] [address] 04/13/2025 Jeff Hoy Right knee pain M25. 561 [facility] [address] [facility] [place] [address] 04/14/2025 Jeff Connellyy [facility] [address] [facility] [place] [address] 04/22/2025 Jeff Rubi [facility] [address] [facility] [place] [address] 04/26/2025 Jeff Connellyy [facility] [address] [facility] [place] [address] 12/17/2024 Jeff Rubi Chronic kidney disea se, stage 4 (severe) N18.4 [facility] [address] [facility] [place] [address] 12/22/2024 Jeff mary [facility] [address] [place] [address] 01/18/2025 Jeff Godwiny [facility] [address] [facility] [place] [facility] [place] [address] 01/18/2025 Jeff mary [facility] [address] [facility] [place] [address] 02/16/2025 Jeff Rubi [facility] [address] [facility] [place] [address] 03/03/2025 Jeff Hoy Right knee pain M25. 561 [facility] [address] [facility] [place] [address] 09/02/2024 Jeff Connellyy [facility] [address] [facility] [place] [address] 09/04/2024 Jeff Hoy UTI (urinary tract infection) N39.0 [facility] [address] [facility] [place] [address] 09/04/2024 Jeff y [facility] [address] [facility] [place] [address] 09/07/2024 Jeff Hoy UTI (urinary tract infection) N39.0 [facility] [address] [facility] [place] [address] 11/24/2024 Jeff Connellyy [facility] [address] [place] [address] 12/16/2024 Jeff Hoy Chronic kidney disea se, stage 4 (severe) N18.4 [facility] [address] [place] [address] 06/18/2024 Jeff Rubi [facility] [address] [place] [address] 06/26/2024 Jeff Connellyy [facility] [address] [place] [address] 06/29/2024 Jeff mary [facility] [address] [place] [address] 08/14/2024 Jeff Godwiny [facility] [address] [place] [address] 09/02/2024 Jeff Connellyy [facility] [address] [place] [address] 04/29/2025 Jeff Hoy Hypertension I10 and Osteoarthritis of right knee M17.11 [facility] [address] [place] [address] 06/18/2024 Jeff Hoy Chest pain R07.9 and Hypertension I10 [facility] [address] [place] [address] 09/22/2024 Jeff Hoy Dyspnea R06.00 and A cute bronchitis J20.9 [facility] [address] [place] [address] 12/31/2024 Jeff Hoy Chest pain R07.9 ; Hypertension I10 ; Coronary artery disease I25.10 and Dyspnea R06.00 [facility] [address] [place] [address] 03/05/2025 Jeff Hoy Type 2 diabetes diony itus 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, bilateral E11.3293 [facility] [address] [place] [address] 04/26/2025 Jeff Hoy Hypertension I10 ; G ERD (gastroesophageal reflux disease) K21.9 and Type 2 diabetes mellitus 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, bilateral E11.3293 [address] [place] [address] 11/18/2024 Jeff Hoy Paroxysmal atrial fibrillation I48.0 ; Chronic kidney disease, stage 4 (severe) N18.4 ; Acute worsening of stage 4 chronic kidney disease N18.4 ; Hypertensive heart disease with heart failure I11.0 and Chronic kidney disease due to diabetes mellitus E11.22 [address] [place] [address] 03/08/2025 Jeff Hoy Hypertension I10 ; Paroxysmal atrial fibrillation I48.0 and Diabetes mellitus type 2 with peripheral artery disease E11.[address] [address] 06/08/2025 Jeff Hoy Acute bronchitis, unspecified organism J20.[address] [address] 11/24/2024 Jeff Hoy HTN (hypertension) I [address] [address] 04/14/2025 Jeff Hoy [address] [address] 05/17/2025 Jeff Hoy Low vitamin B12 leve l E53.[address] [address] 10/13/2024 Jeff Hoy Low vitamin B12 leve l E53.[address] [address] 11/13/2024 Jeff Hoy Low vitamin B12 leve l E53.[address] [address] 12/11/2024 Jeff Hoy Low vitamin B12 leve l E53.[address] [address] 01/11/2025 Jeff Hoy Low vitamin B12 leve l E53.8 [facility] [address] [place] [address] 02/10/2025 Jeff Hoy Low vitamin B12 leve l E53.8 [facility] [address] [place] [address] 03/15/2025 Jeff Hoy Low vitamin B12 leve l E53.8 [facility] [address] [place] [address] 07/08/2024 Jeff Hoy Encounter for immuni zation Z23 [facility] [address] [place] [address] 08/10/2024 Jeff Hoy Low vitamin B12 leve [...] disease, stage 4 (severe) (ICD-10 - N18.4) 11/24/2024 HTN (hypertension) (ICD-10 - I10) 12/11/2024 [...] - K21.9) 04/29/2025 Hypertension (ICD-10 - I10) shine richardson - discussed diet cahnges - keep with meds 04/29/2025 Osteoarthritis of right knee (ICD-10 - M17.11) 05/17/2025 Low vitamin B12 level (ICD-10 - E53.8) 06/08/2025 Acute bronchitis, unspecified organism (ICD-10 - J20.9) Rest and drink more liquids, especially water. You may use a humidifier or vaporizer to help keep the drainage moist. Elxr-amx-aihuhiu Nasal Saline may help the stuffy and runny nose. Use Ibuprofen and or Tylenol as needed for fever, chills, body aches or pain. Children 5 years old should not be given mrez-dko-tnmlogi cough and cold medications such as guaifenesin and dextromethorphan. If you're over age 5, you may try xeec-lff-npqywjk cold medications such as guaifenesin and dextromethorphan, [...] to the emergency room or call 911 09/04/2024 UTI (urinary tract infection) (ICD-10 - N39.0) 09/07/2024 UTI (urinary tract infection) (ICD-10 - N39.0) 12/16/2024 Chronic kidney disease, stage 4 (severe) (ICD-10 - N18.4) 12/17/2024 Chronic kidney disease, stage 4 (severe) (ICD-10 - N18.4) 03/03/2025 Right knee pain (ICD-10 - M25.561) 04/13/2025 Right knee pain (ICD-10 - M25.561) 05/25/2025 Dysuria (ICD-10 - R30.0) 04/26/2025 Type 2 diabetes mellitus with mild [...] urgency - 12/31/2024 Dyspnea (ICD-10 - R06.00) 11/18/2024 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) 04/29/2025 Other Synvisc today Plan Of Treatment [...] Sensitivity Troponin 12/31/2024 [place] Ankle Brachial Index (68719) 024 BNP 06/18/2024 CULTURE URINE 06/18/2024 CULTURE [...] Coverage End Date [employer] MED[employer]ARE [address] [place], [place] [id number] [place] Kylah Robin Self - patient is [...] atrium mildly dilated Surgical History Surgery Date(Month/Year) Bilat shoulder scope Open heart Gallbladder Hysterectomy Cataract OU Sinus surgery Hospitalization History Reason Date(Month/Year) HTN 02/2024 hypertension 01/2024 Hypertension 12/2023 SEE ABOVE
--- OUTSIDE RECORDS SUMMARY | 2025-06-16 06:47 | XMS_ITS | Clinical Summary ---
Author Organization [facility] tem Address [id number] [address] [place] [address] Care Team Providers Care Book Mender Name Role Phone Merrick Rubi MD Primary Care Provider [phone] Allergies Active Allergy Reactions Criticality Noted Date [...] vessel coronary artery bypass graft,Atherosclero sis of cahto coronary artery of cahto heart without angina pectoris,Paroxysma l atrial fibrillation [...] atorvastatin (LIPITOR) 80 mg tabletIndications: Atherosclerosis of cahto coronary artery of cahto heart without angina pectoris,H/O four vessel coronary [...] 04/2021 Paroxysmal atrial fibrillation 01/11/2021 Atherosclerosis of cahto co ronary artery of cahto heart without angina pectoris 01/11/2021 Unstable angina 12/28/2020 Diabetes mellitus Hypertensive urgency Arthritis Dyspnea Other forms of angina pectoris Immunizations Immunization Administration Dates Next Due Influenza [...] any clubs o r organizations such as uatsdin groups, unions, fraternal [...] you need help finding a [facility] career center and/or a training program? No [...] of 2) 1994 Fall Risk Screening 2009 Tobacco Screening 01/16/2025 01/17/2024 COVID-19 Vaccine (3 - 2024-2 6 season) 2025 01/24/2021, 12/13/2020 Influenza Vaccine 06/07/2025 07/18/2020, , 07/14/2018, Additional history exists Goals Goal Patient Goal Type Associated Problems Recent Progress Patient-Stated? Author <enter goal here> General Yes Dione Mason LSW Note: Evaluation of progress towards goal: return home with homecare and support from b, children and grandchildren Medical Devices Not on file Insurance [employer] MEDICARE Advance Directives * Full Code (Latest Code Status on File) Date Activated Date Inactivated Comments 12/28/2020 2:33 PM 01/03/2021 7:38 PM Care Teams Book Mender Relationship Specialty Start Date End Date Merrick Rubi MD PCP - General Family Medicine 10/20/20
--- NOTE | 2025-06-16 06:53 | CA_ITS ---
Patient Name: KYLAH BERGER MR#: [id number] : 1945 Exam Date: 06/16/2025 Ordering Doctor: DR STEFANO CATHERINE M.D. ECHOCARDIOGRAM REPORT PROCEDURE: CA ECHO DOPPLER COMPLETE INDICATIONS: LVH, Aortic and Mitral valve stenosis, hypertension, diabetes COMPARISON: None. DESCRIPTION: COMPLETE ECHOCARDIOGRAM Real-time transthoracic echocardiography with 2D, M-mode, spectral and color flow Doppler performed. QUALITY: Technical quality was good. LEFT VENTRICLE: Normal chamber size. Mild left ventricular enlargement proximal septal hypertrophy (sigmoid septum). Calculated left ventricular ejection fraction is 67%. LV EF: Global left ventricular systolic function is normal; visually estimated ejection fraction is 60 to 65%. No significant wall motion abnormalities DIASTOLIC: Grade II diastolic dysfunction. E/E' suggests volume overload. ATRIAL SEPTUM: Visually appears intact. LEFT ATRIUM: Moderate dilatation. RIGHT ATRIUM: Normal chamber size. RIGHT VENTRICLE: Normal chamber size. Normal right ventricular systolic function. TRICUSPID VALVE: Normal mobility and thickness. No stenosis with mild regurgitation. Doppler studies reveal mildly (35-45) elevated right sided pressures. RVSP 37 mmHg MITRAL VALVE: Normal mobility and thickness. Elevated gradients likely due to volume overload. MVA 2.3 cm2. Moderate mitral annular calcification. Mild mitral regurgitation. AORTIC VALVE: Normal trileaflet appearance. Mildly calcified aortic valve. Mildly diminished mobility. No evidence of aortic valve stenosis. No aortic regurgitation. AORTIC ROOT: Normal diameter and appearance. Ascending aorta is normal in size. PULMONIC VALVE: Normal thickness and mobility. No stenosis. No regurgitation. PERICARDIUM: No evidence of pericardial effusion. IVC: Not well visualized. CONCLUSION: 1. Global left ventricular systolic function is normal; visually estimated ejection fraction is 60 to 65% 2. Normal right ventricular size and systolic function 3. Mild left ventricular hypertrophy 4. Grade 2 diastolic dysfunction 5. E/E' suggests volume overload 6. The left atrium is moderately dilated 7. Mild tricuspid regurgitation 8. Mildly elevated right ventricular systolic pressure; RVSP 37 mmHg 9. Mild mitral regurgitation Adult Echocardiography Procedure Report Left Ventricle LVEDD (3.7 - 5.6 cm): 4.59 cm LVESD (2.2 - 4.0 cm): 3.43 cm LVIVS thickness (0.6 - 1.2 cm): 1.82 cm LVPW thickness (0.5 - 1.0 cm): 1.08 cm e': 0.07 m/s E - e': 13.60 LVOT Max Gradient: 4.36 mm[Hg] LVOT Area (cm2): 1.04 m/s Peak Velocity (LVOT): 1.04 m/s Mean Velocity (LVOT): 0.64 m/s LVOT Diameter 2.29 cm Left Ventricular Ejection Fraction: 66.73 % Left Atrium LA Volume Index (2D A2C): 42.83 ml/m2 Left Atrium Systolic Dimension: 4.78 cm Mitral Valve MV E to A Ratio: 0.73 Mitral Valve A-Wave Peak Velocity: 1.38 m/s Mitral Valve E-Wave Peak Velocity: 1.00 m/s Right Ventricle Aorta AO Root Diam: 3.51 cm Ascending Ao Diam: 2.94 cm Aortic Valve AoV Area (Peak Shlomo): 2.78 cm2, 2.78 cm2 AoV Area (VTI): 2.76 cm2, 2.76 cm2 Peak Velocity(Antegrade Flow): 1.55 m/s Peak Gradient(Antegrade Flow): 9.64 mm[Hg] Mean Velocity(Antegrade Flow): 1.11 m/s Mean Gradient(Antegrade Flow): 5.51 mm[Hg] Velocity Time Integral: 42.56 cm Tricuspid Valve Peak Velocity (Regurgitant Flow): 2.92 m/s Pulmonic Valve Peak Gradient: 6.34 mm[Hg], 5.11 mm[Hg] Right Atrium Right Atrium Systolic Pressure: 34.83 ml, 34.83 ml Dictated by: Stefano Catherine M.D. on 06/17/2025 at 08:39 Approved by: Stefano Catherine M.D. on 06/17/2025 at 08:45
== END 2025-06-16 06:44 | disposition home or self-care (01) ==
LOC: CARD 06:44
PROVIDERS: PCP Family Medicine; Visit Provider Internal Medicine Interventional Cardiology
DX: I51.7 Cardiomegaly (principal)
CPT/HCPCS: 93306

== ENCOUNTER 2025-06-29 06:40 | Outpatient (OUT) | payer MEDICARE, SELFPAY ==
--- OUTSIDE RECORDS SUMMARY | 2025-06-29 06:45 | XMS_ITS | Encounter Summary ---
Author Organization [facility] Address [id number] [address] [place] [address] Care Team Providers Care Certifier Name Role Phone Merrick Rubi MD Primary Care Provider [phone] Encounter Details Date Type Department Care Team (Late st Contact Info) Description 07/08/2023 Orders Only [facility] [address] [place] [phone] External, Scanning Provider Social History Tobacco Use [...] often do you attend chur ch or baptism services? More than 4 times per year 12/28/2020 Do you belong to any clubs o r organizations such as latter day groups, unions, fraternal or athletic groups, or [...] <enter goal here> General Yes [place], Dione, ASSOCIATE SOFTWARE DEVELOPER Note: Evaluation of progress towards goal: return home with homecare and support from [facility], children and grandchildren documented as of this encounter Procedures Procedure Name Priority Date/Time Associated Diagnosis Comments MULTIPLE LABS Routine 07/08/2023 LIPID PROFILE Routine 07/08/2023 documented in this encounter Results * Multiple labs (07/08/2023) us Scanning Provider External ID IMAGING Edite d Result - Final Performing Organization Address [facility] Co de Phone Number MANUALLY [...] Edited Result - Final Performing Organization Address [facility] Co de Phone Number MANUALLY TRANSCRIBED RESULTS documented in this encounter Visit Diagnoses Not on filedocumented in this encounter Additional Health Concerns Assessment Noted Time PHQ-9 Depression Total Score: 0 12/29/19 21 3:16 PM EDT documented as of this encounter Care Teams Certifier Relationship Specialty Start Date End Date Merrick Rubi MD PCP - General Family Medicine 10/20/20 documented as of this encounter
--- OUTSIDE RECORDS SUMMARY | 2025-06-29 06:45 | XMS_ITS | Encounter Summary ---
Author Organization [facility] Address [id number] [address] [place] [address] Care Team Providers Care Quick Mixer Operator Name Role Phone Merrick Rubi MD Primary Care Provider [phone] Encounter Details Date Type Department Care Team (Late st Contact Info) Description 12/16/2020 Orders Only [facility] [address] [place] [phone] External, Scanning Provider Social History Tobacco Use [...] on filedocumented in this encounter Care Teams Quick Mixer Operator Relationship Specialty Start Date End Date Merrick Rubi MD PCP - General Family Medicine 10/20/20 documented as of this encounter
--- OUTSIDE RECORDS SUMMARY | 2025-06-29 06:45 | XMS_ITS | Encounter Summary ---
Author Organization [facility] Address [id number] [address] [place] [address] Care Team Providers Care Maintenance Painter Apprentice Name Role Phone Merrick Rubi MD Primary Care Provider [phone] Encounter Details Date Type Department Care Team (Late st Contact Info) Description 01/12/2021 Orders Only [facility] [address] [phone] External, Scanning Provider Social History Tobacco Use [...] any clubs o r organizations such as zoroastrian groups, unions, fraternal or athletic groups, or [...] Answer Date Recorded Total Score 0 12/28/2020 [facility] [place] [facility] Occupat ional Health - Occupational Stress [...] Recorded Do you need help finding a [facility] career center and/or a training program? [...] documented as of this encounter Care Teams Maintenance Painter Apprentice Relationship Specialty Start Date End Date Merrick Rubi MD PCP - General Family Medicine 10/20/20 documented as of this encounter
--- OUTSIDE RECORDS SUMMARY | 2025-06-29 06:45 | XMS_ITS | Clinical Summary ---
Author Organization [facility] Address [address], [address] [place] [address] Care Team Providers Care Mammography Supervisor Name Role Phone Merrick Rubi MD Primary Care Provider [phone] Allergies Active Allergy Reactions Criticality Noted Date [...] mouth daily Active Multiple Vitamins-Minera ls (THERAPEUTIC MULTIVITAMIN-DC NERALS) tablet Take 1 tablet by mouth [...] 12:27 PM 01/30/2016 1:33 PM Care Teams Mammography Supervisor Relationship Specialty Start Date End Date Merrick Rubi MD [address] [place] [address] PCP - General 01/17/16
--- OUTSIDE RECORDS SUMMARY | 2025-06-29 06:45 | XMS_ITS | Clinical Summary ---
Author Organization [facility] Address [address] [place] [address] Care Team Providers Care Deputy County Counsel Name Role Phone Merrick Rubi MD Primary Care Provider [phone] Allergies Active Allergy Reactions Criticality Noted Date [...] 01/15/2022 024 Essential hypertension 05/11/2021 Atherosclerosis of [place] co ronary artery of [place] heart without angina pectoris 01/11/2021 02/10/2024 H/O [...] Encounters Date Type Department Care Team Description 06/17/2025 Orders Only [facility] [place] [address] [place] [phone] Provider, MD Sloane from Last 3 Months Social History Tobacco [...] 2025 01/24/2021, 12/13/2020 Influenza Vaccine (#1) 2025 0, 07/22/2019, 07/20/2019, Additional history exists Pneumococcal Vaccine: [...] on patient's age to complete this topic Procedures Procedure Name Priority Date/Time Associated Diagnosis Comments COMPLETE TRANSTHORACIC ECHO (TTE) W/WO IMAGING AGENT, STRAIN, 3D, BUBBLE STUDY Routine 06/16/2025 9:20 AM EDT from Last 3 Months Results * Complete Echo (TTE) w/wo Imaging Agent, Strain, 3D, Bubble Study (06/16/2025 9:20 AM EDT) Anatomical Region Laterality Modality Ultrasound us Historical Provider CV ECHO PROCEDURES Final Result from Last 3 Months Insurance [employer] MEDICARE ADVANTAGE Care Teams Deputy County Counsel Relationship Specialty Start Date End Date Merrick Rubi MD [address] [facility] [place] [address] PCP - General 01/22/24
--- OUTSIDE RECORDS SUMMARY | 2025-06-29 06:45 | XMS_ITS | Clinical Summary ---
Author Organization [facility] Address [id number] [address] [place] [address] Care Team Providers Care Reaming Machine Tender Name Role Phone Merrick Rubi MD Primary Care Provider [phone] Allergies Active Allergy Reactions Criticality Noted Date [...] vessel coronary artery bypass graft,Atherosclero sis of [place] coronary artery of [place] heart without angina pectoris,Paroxysma l atrial fibrillation [...] atorvastatin (LIPITOR) 80 mg tabletIndications: Atherosclerosis of [place] coronary artery of [place] heart without angina pectoris,H/O four vessel coronary [...] 04/2021 Paroxysmal atrial fibrillation 01/11/2021 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 More than 4 times per year 12/28/2020 Do you belong to any clubs o r organizations such as anglican groups, unions, fraternal or athletic groups, or [...] 2:33 PM 01/03/2021 7:38 PM Care Teams Reaming Machine Tender Relationship Specialty Start Date End Date Merrick Rubi MD PCP - General Family Medicine 10/20/20
--- OUTSIDE RECORDS SUMMARY | 2025-06-29 06:45 | XMS_ITS | Clinical Summary ---
Author Organization [facility] Address [address] [place] [address] Care Team Providers Care Assistant Terminal Manager Name Role Phone Merrick Rubi MD Primary Care Provider [phone] Allergies Active Allergy Reactions Criticality Noted Date [...] EDT Office Visit [facility] [address] [place] [address] Lorraine Pope MD Type 2 diabetes mellitus with hyperglycemia, with long-term 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 (HCC) (Primary Dx); Vitamin D deficiency; Microalbuminuria; Hyperlipemia, mixed ; Insulin long-term use (HCC); Primary hypertension ; Pema's disease ; Encounter for dietary consultation; Chronic renal disease, stage IV (HCC) 06/14/2025 Bamboo flowsheet [facility] [address] [place] [address] Lorraine Pope MD from Last 3 Months [...] Description 09/13/2025 10:50 AM EST Office Visit [facility] [address] [place] [address] Lorraine Pope MD [address] [place] [address] 03/23/2026 10:00 AM EDT Office Visit [facility] [address] [place] [phone] Lavonne Longroia MD [address] [place] [address] Health Maintenance Due Date Last Done Comments [...] with long-term 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 (HCC) from Last 3 Months Results * POCT [...] Months Insurance [employer] MEDICARE ADVANTAGE Care Teams Assistant Terminal Manager Relationship Specialty Start Date End Date Merrick Rubi MD PCP - General Family Medicine 10/22/23
--- OUTSIDE RECORDS SUMMARY | 2025-06-29 06:45 | XMS_ITS | Encounter Summary ---
Author Organization [facility] Address [id number] [address] [place] [address] Care Team Providers Care Shake Splitter Name Role Phone Merrick Rubi MD Primary Care Provider [phone] Encounter Details Date Type Department Care Team (Late st Contact Info) Description 01/17/2024 Orders Only [facility] [address] [place] [phone] External, Scanning Provider Social History Tobacco Use [...] any clubs o r organizations such as hinduism groups, unions, fraternal or athletic groups, or [...] Recorded Do you need help finding a [employer] [facility] career center and/or a training program? No [...] L ORDERABLES Final Result Performing Organization Address [facility] Phone Number MANUALLY TRANSCRIBED RESULTS * ECG 12 lead (01/01/2024 9:50 AM EDT) us Scanning Provider External ECG ORDERABLES Final Result Performing Organization Address [facility] Phone Number MANUALLY TRANSCRIBED RESULTS * Multiple labs (01/01/2024 9:11 AM EDT) us Scanning Provider External LA IMAGING Final Result Performing Organization Address [facility] de Phone Number MANUALLY TRANSCRIBED RESULTS * Multiple labs (01/01/2024 8:52 AM EDT) us Scanning Provider External LA IMAGING Final Result Performing Organization Address [facility] de Phone Number MANUALLY TRANSCRIBED RESULTS * ECG 12 lead (12/31/2023 9:48 AM EDT) us Scanning Provider External ECG ORDERABLES Final Result Performing Organization Address [facility] de Phone Number MANUALLY TRANSCRIBED RESULTS * Urinalysis (12/31/2023 9:10 AM EDT) us Scanning Provider External URINE ORDERABLES Pamella l Result Performing Organization Address [facility] Phone Number MANUALLY TRANSCRIBED RESULTS * Multiple labs (12/31/2023 8:51 AM EDT) us Scanning Provider External LA IMAGING Final Result Performing Organization Address [facility] Phone Number MANUALLY TRANSCRIBED RESULTS * [...] ECG ORDERABLES Final Result Performing Organization Address [facility] Phone Number MANUALLY TRANSCRIBED RESULTS * Multiple labs (12/30/2023 8:50 AM EDT) us Scanning Provider External LA IMAGING Final Result Performing Organization Address [facility] de Phone Number MANUALLY TRANSCRIBED RESULTS documented in this encounter Visit Diagnoses Not on filedocumented in this encounter Additional Health Concerns Assessment Noted Time PHQ-9 Depression Total Score: 0 12/29/19 21 3:16 PM EDT documented as of this encounter Care Teams Shake Splitter Relationship Specialty Start Date End Date Merrick Rubi MD PCP - General Family Medicine 10/20/20 documented as of this encounter
--- OUTSIDE RECORDS SUMMARY | 2025-06-29 06:45 | XMS_ITS | Patient Health Record ---
Author Organization [facility] [place] in [place] Address [address] [place] [address] Care Team Providers Care Digital Content Producer Name Role Phone Jeff Rubi Primary Care Provider Allergies Allergen (clinical drug ingredient) Drug/Non Drug Allergy documented on EMR Reaction Allergy Type Onset Date Status amoxicillin / clavulanate Augmentin Unknown Drug Allergy Active sulfamethoxazole / trimethoprim Bactrim Unknown Drug Allergy Active doxazosin Cardura Unknown Drug Allergy Active amlodipine Norvasc Unknown Drug Allergy Active Results Component Value Reference Range Notes Urine Culture, Routine Reviewed date:09/08/2024 09:03:21 PM [...] Status Urine [facility], [facility], Routine Organism: Gram negative martin : O:ESCCOL Isolated O:GNR Isolated Organism: 1.1 Antibiotic Interpretation AIDEN Status Urine Culture, Routine [address] [place], [place] [id number] Urine Culture, Routine Organism: Gram negative martin : O:ESCCOL Isolated O:GNR Isolated Organism: 1.1 Antibiotic Interpretation AIDEN Status Urine Culture, Routine Couples Therapist: Lavell Benson PhD, Phone: [phone] Urine Culture, Routine Organism: Gram negative martin [...] Interpretation AIDEN Status Urine Culture, Routine Trimethoprim/Sulf ameth oxazole R F Urine Culture, Routine Organism: Gram negative martin : O:ESCCOL Isolated O:GNR Isolated Organism: 1.1 Antibiotic Interpretation AIDEN Status Urine Culture, Routine Piperacillin/Tazo bacta m S F Urine Culture, Routine Organism: Gram negative martin : O:ESCCOL Isolated O:GNR Isolated Organism: 1.1 Antibiotic Interpretation AIDEN Status Performing Lab: see note LC - [facility] LB SEE REPORT - Scaffold Setter Id information not found for OBX-specific 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 and astronomy professor legend XR chest 1V Reviewed date:09/20/2024 05:06:04 PM Interpretation: Performing Lab: Notes/Report: Source Facility: [place] [address] XRay Report Signed Patient: KYLAH ROBIN MR#: [id number] : 1945 Acct:[id number] Age/Sex: 78 / F ADM Date: 09/20/24 Loc: ER Attending Dr: Ordering Physician: Luis Lugo Date of Service: 09/20/24 Procedure(s): XR chest 1V Accession Number(s): [id number] cc: Dhruv Rubi M.D.; Luis Lugo [place] [address] Patient Name: KYLAH ROBIN MRN: [id number] date: 1945 Sex: F Assigned Patient Location: ER Current Patient Location: ER Accession/Order Number: [id number] Exam Date: 09/20/2024 15:28 Report Date: 09/20/2024 [...] Signed By: 09/20/24 1601 DD/ 1558 TD/TT: Apple Checker: MM tomosynthesis screening B I Reviewed date:12/22/2024 08:51:42 PM Interpretation: Performing Lab: Notes/Report: Source Facility: [place] [address] Mammography Report Signed Patient: KYLAH ROBIN MR#: [id number] : 1945 Acct:[id number] Age/Sex: 79 / F ADM Date: 12/22/24 Loc: MAMMO Attending Dr: Dhruv Rubi M.D. Ordering Physician: Dhruv Rubi M.D. Results: Date of Service: 12/22/24 Follow Up: Procedure(s): MM tomosynthesis screening BI Accession Number(s): [id number] cc: Dhruv Rubi M.D. Patient Name: KYLAH ROBIN MR#: [id number] : 1945 Exam Date: 12/22/2024 Ordering Doctor: [...] lung cancer at age 61. LOCATION: [facility] BREAST COMPOSITION: There are scattered areas of [...] Gamino M.D. Signed By: 12/22/24 1602 DD/ 160 TD/TT: Apple Checker: IRON AND TIBC Reviewed date:01/05/2025 07:25:49 PM Interpretation: Performing Lab: Notes/Report: [facility] , Iron 69.0 50.0-170.0 ug/dL Total Iron Binding Capacity 207.0 250.0-450.0 ug/dL Percent Iron Saturation 33.3 Performing Lab: see note - [facility] LB CBC no Diff (Hemogram) Reviewed date:01/05/2025 07:25:49 PM Interpretation: Performing Lab: Notes/Report: [facility] , White Blood Count 6.0 4.0-11.0 10 [...] 9.5-13.5 fL Performing Lab: see note - [facility] LB XR KNEE RT 3V Reviewed date:03/04/2025 06:23:39 PM Interpretation: Performing Lab: Notes/Report: Source Facility: [facility] [place] [address] [place] [address] XRay Report Signed with Addenda Patient: KYLAH ROBIN MR#: [id number] : 1945 Acct:[id number] Age/Sex: 79 / F ADM Date: 03/03/25 Loc: LAB Attending Dr: Dhruv Rubi M.D. Ordering Physician: Dhruv Rubi M.D. Date of Service: 03/03/25 Procedure(s): XR knee RT 3V Accession Number(s): [id number] cc: Dhruv Rubi M.D. ADDENDUM The [place] [address] This is an addendum Correction: Addendum Dictated By: Mariusz Hernandez D.O. 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 Impression dictated by: Mariusz Hernandez M.D. 03/04/2025 9:17 AM Dictation Location: [place] [address] Electronically authenticated by: [id number] Y Date: 03/04/2025 09:17 Patient Name: KYLAH ROBIN MRN: [id number] date: 1945 Sex: F Assigned Patient Location: LAB Current Patient Location: Accession/Order Number: [id number] Exam Date: 03/04/2025 09:16 Report Date: 03/04/2025 09:17 At the request of: DHRUV RUBI MD Procedure: XR knee RT 3V The [place] [address] Patient Name: KYLAH ROBIN MRN: [id number] date: 1945 Sex: F Assigned Patient Location: LAB Current Patient Location: LAB Accession/Order Number: [id number] Exam Date: 03/03/2025 16:06 Report Date: 03/03/2025 [...] Hernandez M.D. 03/03/2025 4:08 PM Dictation Location: [place] Electronically authenticated by: [id number] Y Date: 03/03/2025 16:08 Addendum Dictated By: Mariusz Hernadnez D.O. Addendum Signed By: 03/04/25 0 919 Addendum Cosigned By: DD/ TD/TT: / [place] [address] Patient Name: KYLAH ROBIN MRN: [id number] date: 1945 Sex: F Assigned Patient Location: LAB Current Patient Location: LAB Accession/Order Number: [id number] Exam Date: 03/03/2025 16:06 Report Date: 03/03/2025 [...] Hernandez M.D. 03/03/2025 4:08 PM Dictation Location: [facility] Electronically authenticated by: [id number] Y Date: 03/03/2025 16:08 Dictated By: Mariusz Hernandez D.O. Signed By: 03/03/25 1611 DD/ 1608 TD/TT: Apple Checker: PROF Dyson(COMP METB) Reviewed date:12/31/2024 08:41:15 PM Interpretation: Performing Lab: Notes/Report: [facility] , Sodium 138 136-145 mmol/L Potassium 4.5 [...] 0.9 Performing Lab: see note ML - [facility] LB CBC AUTO DIFF Reviewed date:12/31/2024 08:41:15 PM Interpretation: Performing Lab: Notes/Report: [facility] , White Blood Count 7.2 4.0-11.0 10 [...] see note ML - [facility] LB BNP Reviewed date:12/31/2024 08:41:15 PM Interpretation: Performing Lab: Notes/Report: [facility] , NT Pro B Type Natriuretic Pept 1558.0 <=1800.0 pg/mL Performing Lab: see note ML - [facility] FERRITIN Reviewed date:09/01/2024 06:04:15 PM Interpretation: Performing Lab: Notes/Report: [facility] , Ferritin 488.0 8.0-252.0 ng/mL Performing Lab: see note ML - [facility] LB IRON AND TIBC Reviewed date:09/01/2024 06:04:15 PM Interpretation: Performing Lab: Notes/Report: [facility] , Iron 61.0 50.0-170.0 ug/dL Total Iron Binding Capacity 205.0 250.0-450.0 ug/dL Percent Iron Saturation 29.8 Performing Lab: see note ML - [facility] LB MAGNESIUM Reviewed date:09/01/2024 06:04:15 PM Interpretation: Performing Lab: Notes/Report: [facility] , Magnesium 1.9 1.8-2.4 mg/dL Performing Lab: see note ML - [facility] LB RENAL FUNCTION PANEL Reviewed date:09/01/2024 06:04:15 PM Interpretation: Performing Lab: Notes/Report: [facility] , Sodium 136 136-145 mmol/L Potassium 3.9 [...] g/dL Performing Lab: see note ML - [facility] LB URIC ACID SERUM Reviewed date:09/01/2024 06:04:15 PM Interpretation: Performing Lab: Notes/Report: [facility] , Uric Acid 4.2 2.6-6.0 mg/dL Performing Lab: see note ML - [facility] LB VITAMIN D 25 [place] Reviewed date:09/01/2024 06:04:15 PM Interpretation: Performing Lab: Notes/Report: [facility] , Vitamin D 35.4 <20 ng/mL Vit D deficient 20-<30 ng/mL Vit D insufficient 30-100 ng/mL Vit D sufficient >100 ng/mL Potential Toxicity Performing Lab: see note ML - [facility] LB CBC no Diff (Hemogram) Reviewed date:09/01/2024 06:04:15 PM Interpretation: Performing Lab: Notes/Report: [facility] , White Blood Count 6.3 4.0-11.0 10 [...] fL Performing Lab: see note ML - [facility] LB UA RANDOM W or MICROSCOPIC Reviewed date:09/06/2024 12:29:49 PM Interpretation: Performing Lab: Notes/Report: [facility] , Color Urine DK. ORANGE YELLOW Clarity Urine CLEAR CLEAR Specific [place] Urine 1.010 1.005-1.025 pH Urine COLOR INTERFERENCE [...] see note ML - [facility] LB CBC AUTO DIFF Reviewed date:09/20/2024 05:06:04 PM Interpretation: Performing Lab: Notes/Report: [facility] , White Blood Count 15.3 4.0-11.0 10 [...] 3/uL Performing Lab: see note ML - [facility] LB INFLUENZA A AND B AG Reviewed date:09/20/2024 05:06:04 PM Interpretation: Performing Lab: Notes/Report: [facility] , Influenza Virus A Antigen Negative Negative [...] test. Performing Lab: see note ML - [facility] LB LACTATE or LACTIC ACID Reviewed date:09/20/2024 05:06:04 PM Interpretation: Performing Lab: Notes/Report: [facility] , Lactate/Lactic Acid 1.7 0.4-2.0 mmol/L Performing Lab: see note ML - [facility] LB PROF 14(COMP METB) Reviewed date:09/20/2024 05:06:04 PM Interpretation: Performing Lab: Notes/Report: [facility] , Sodium 135 136-145 mmol/L Potassium 4.7 [...] 0.8 Performing Lab: see note ML - [facility] LB UA (CLEAN or CATCH) MAGNETIC PROSPECTING OPERATOR or M ICRO IF IND. Reviewed date:09/20/2024 05:06:04 PM Interpretation: Performing Lab: Notes/Report: [facility] , Color Urine YELLOW YELLOW Clarity Urine CLEAR CLEAR Specific [place] Urine 1.020 1.005-1.025 pH Urine 5.5 5.0-9.0 Protein Urine 100 NEG/TRACE mg/dL Glucose Urine UA NEGATIVE NEGATIVE mg/dL Bilirubin Urine NEGATIVE NEGATIVE Ketones Urine NEGATIVE NEGATIVE mg/dL Blood Urine NEGATIVE NEGATIVE Nitrite Urine NEGATIVE NEGATIVE Urobilinogen Urine 0.2 0.2-1.0 EU/dL Leukocyte Esterase Urine NEGATIVE NEGATIVE Urine Microscopic Indicated YES Performing Lab: see note ML - [facility] URINE MICROSCOPIC ONLY Reviewed date:09/20/2024 05:06:04 PM Interpretation: Performing Lab: Notes/Report: [facility] , WBC Urine NONE SEEN NONE SEEN #/HPF RBC Urine 0-2 0-2 #/HPF Bacteria Urine TRACE NONE SEEN #/HPF Mucus Urine NONE SEEN NONE SEEN Squamous Epithelial Cell Urine MODERATE NONE/RARE #/LPF Crystals Seen? None Seen None Seen #/HPF Cast Seen? NONE SEEN NONE SEEN #/LPF Urine Culture Indicated NO Performing Lab: see note ML - [facility] LB Troponin I High Sensitivity Reviewed date:09/20/2024 05:06:04 PM Interpretation: Performing Lab: Notes/Report: [facility] , Troponin I High Sensitivity 12.6 4.0-51.3 pg/mL CUT-OFF POINTS HAVE BEEN ESTABLISHED BASED ON THE FOURTH UNIVERSAL DEFINITION OF MYOCARDIAL INFARCTION. THE UPPER REFERENCE LIMIT (URL) OF TROPONIN, DEFINED THE 99TH PERCENTILE OF cTnI DISTRIBUTION IN A REFERENCE POPULATION, HAS BEEN CONFIRMED THE DECISION THRESHOLD FOR MN DIAGNOSIS. 99TH PERCENTILE = 51.4 PG/ML NOTE: HIGH-SENSITIVITY TROPONIN ASSAY IS NOT INTENDED TO BE USED IN ISOLATION BUT SHOULD BE INTERPRETED IN CONJUNCTION WITH OTHER DIAGNOSTIC AND CLINICAL INFORMATION. Performing Lab: see note ML - [facility] LB TSH W/ REFLEX FT4 Reviewed date:09/20/2024 05:06:04 PM Interpretation: Performing Lab: Notes/Report: [facility] , TSH W/ REFLEX FT4 1.297 0.358-3.740 uIU/mL Performing Lab: see note ML - [facility] LB SARS-CoV-2 Ag* Reviewed date:09/20/2024 05:06:04 PM Interpretation: Performing Lab: Notes/Report: [facility] , SARS-CoV-2 Ag NEGATIVE NEGATIVE This test [...] see note ML - [facility] LB ECG 12 lead Reviewed date:09/22/2024 12:37:02 PM Interpretation: Performing Lab: Notes/Report: Source Facility: [facility] [place] [address] [place] [address] Electrocardiograph Report Signed Patient: KYLAH ROBIN MR#: [id number] : 1945 Acct:[id number] Age/Sex: 78 / F ADM Date: 09/20/24 Loc: ER Attending Dr: Ordering Physician: Luis Lugo Date of Service: 09/20/24 Procedure(s): ECG 12 lead Accession Number(s): [id number] cc: [facility] Test Date: 2024-09-20 Pat Name: KYLAH ROBIN Department: Room: - Gender: Female Orthopaedic General: : 1945 Requested By: DHRUV RUBI Order Number: [id number] Reading MD: DHRUV RUBI Measurements Intervals [place] Rate: 83 P: 43 KS: 156 QRS: 13 QRSD: 86 T: 57 QT: 394 QTc: 434 Interpretive Statements 1100 Sinus rhythm 4068 Nonspecific Twave abnormality 9130 borderline ECG Compared to ECG 03/01/2024 19:45:19 T-wave abnormality no longer present Electronically Signed On 09-22-2024 6:58:14 EST by DHRUV RUBI Dictated By: Dhruv Rubi M.D. Signed By: 09/22/24 0658 DD/ 1521 TD/TT: Apple Checker: CT abdomen pelvis wo con Reviewed date:09/20/2024 05:06:04 PM Interpretation: Performing Lab: Notes/Report: Source Facility: [place] [address] CT Scan Report Signed Patient: KYLAH ROBIN MR#: [id number] : 1945 Acct:[id number] Age/Sex: 78 / F ADM Date: 09/20/24 Loc: ER Attending Dr: Ordering Physician: Luis Lugo Date of Service: 09/20/24 Procedure(s): CT abdomen pelvis wo con Accession Number(s): [id number] cc: Dhruv Rubi M.D. [place] [id number] Patient Name: KYLAH ROBIN MRN: [id number] date: 1945 Sex: F Assigned Patient Location: ER Current Patient Location: ER Accession/Order Number: [id number] Exam Date: 09/20/2024 15:52 Report Date: 09/20/2024 [...] Dictated By: Isabel Meza M.D. Signed By: 09/20/24 1623 DD/ 1620 TD/TT: Apple Checker: CBC AUTO DIFF Reviewed date:11/18/2024 10:07:51 PM Interpretation: Performing Lab: Notes/Report: [facility] , White Blood Count 6.9 4.0-11.0 10 [...] 10 3/uL Performing Lab: see note - [facility] PROF CHEM 8 (BAS METB) Reviewed date:11/18/2024 10:07:51 PM Interpretation: Performing Lab: Notes/Report: [facility] , Sodium 140 136-145 mmol/L Potassium 4.2 [...] 8.5-10.1 mg/dL Performing Lab: see note - [facility] LB ECG 12 lead Reviewed date:11/20/2024 06:53:57 AM Interpretation: Performing Lab: Notes/Report: Source Facility: [facility] [place] [address] [place] [address] Electrocardiograph Report Signed Patient: KYLAH ROBIN MR#: [id number] : 1945 Acct:[id number] Age/Sex: 78 / F ADM Date: 11/17/24 Loc: ER Attending Dr: Ordering Physician: Pee Prabhakar M.D. Date of Service: 11/17/24 Procedure(s): ECG 12 lead Accession Number(s): [id number] cc: [facility] Test Date: 2024-11-17 Pat Name: KYLAH ROBIN Department: Room: - Gender: Female Orthopaedic General: : 1945 Requested By: DHRUV RUBI Order Number: [id number] Reading MD: DHRUV RUBI Measurements Intervals [place] Rate: 71 P: 25 KS: 186 QRS: 18 QRSD: 84 T: 91 QT: 408 QTc: 431 Interpretive Statements 1100 Sinus rhythm 4068 Nonspecific Twave abnormality 9130 borderline ECG Compared to ECG 09/20/2024 15:21:49 No significant changes Electronically Signed On 11-20-2024 5:24:01 EST by DHRUV RUBI Dictated By: Dhruv Rubi M.D. Signed By: 11/20/24 0524 DD/ TD/TT: Apple Checker: Troponin I High Sensitivity Reviewed date:12/31/2024 08:41:15 PM Interpretation: Performing Lab: Notes/Report: [facility] , Troponin I High Sensitivity 11.5 4.0-51.3 pg/mL CUT-OFF POINTS HAVE BEEN ESTABLISHED BASED ON THE FOURTH UNIVERSAL DEFINITION OF MYOCARDIAL INFARCTION. THE UPPER REFERENCE LIMIT (URL) OF TROPONIN, DEFINED THE 99TH PERCENTILE OF cTnI DISTRIBUTION IN A REFERENCE POPULATION, HAS BEEN CONFIRMED THE DECISION THRESHOLD FOR MN DIAGNOSIS. 99TH PERCENTILE = 51.4 PG/ML NOTE: HIGH-SENSITIVITY TROPONIN ASSAY IS NOT INTENDED TO BE USED IN ISOLATION BUT SHOULD BE INTERPRETED IN CONJUNCTION WITH OTHER DIAGNOSTIC AND CLINICAL INFORMATION. Performing Lab: see note ML - [facility] LB XR chest 2V Reviewed date:12/31/2024 08:41:15 PM Interpretation: Performing Lab: Notes/Report: Source Facility: [facility] [place] [address] [place] [address] XRay Report Signed Patient: KYLAH ROBIN MR#: [id number] : 1945 Acct:[id number] Age/Sex: 79 / F ADM Date: 12/31/24 Loc: LAB Attending Dr: Dhruv Rubi M.D. Ordering Physician: Dhruv Rubi M.D. Date of Service: 12/31/24 Procedure(s): XR chest 2V Accession Number(s): [id number] cc: Dhruv Rubi M.D. The [address] [address] Patient Name: KYLAH ROBIN MRN: [id number] date: 1945 Sex: F Assigned Patient Location: LAB Current Patient Location: LAB Accession/Order Number: [id number] Exam Date: 12/31/2024 12:38 Report Date: 12/31/2024 [...] Mariusz Hernandez M.D.12/31/2024 12:41 PM Dictation Location: [place] [address] Electronically authenticated by: [id number] Y Date: 12/31/2024 12:41 Dictated By: Mariusz Hernandez D.O. Signed By: 12/31/24 1244 DD/ 1241 TD/TT: Apple Checker: FERRITIN Reviewed date:01/05/2025 07:25:49 PM Interpretation: Performing Lab: Notes/Report: [facility] , Ferritin 499.0 8.0-252.0 ng/mL Performing Lab: see note ML - [facility] LB MAGNESIUM Reviewed date:01/05/2025 07:25:49 PM Interpretation: Performing Lab: Notes/Report: [facility] , Magnesium 1.9 1.8-2.4 mg/dL Performing Lab: see note ML - [facility] LB RENAL FUNCTION PANEL Reviewed date:01/05/2025 07:25:49 PM Interpretation: Performing Lab: Notes/Report: [facility] , Sodium 141 136-145 mmol/L Potassium 4.7 [...] g/dL Performing Lab: see note ML - [facility] UA RANDOM W or MICROSCOPIC Reviewed date:01/05/2025 07:25:49 PM Interpretation: Performing Lab: Notes/Report: [facility] , Color Urine LT. YELLOW YELLOW Clarity Urine CLOUDY CLEAR Specific [place] Urine 1.020 1.005-1.025 pH Urine 6.0 5.0-9.0 [...] #/LPF Performing Lab: see note ML - [facility] URIC ACID SERUM Reviewed date:01/05/2025 07:25:49 PM Interpretation: Performing Lab: Notes/Report: [facility] , Uric Acid 3.9 2.6-6.0 mg/dL Performing Lab: see note ML - [facility] URINE T PROTEIN CREAT RATIO Reviewed date:01/05/2025 07:25:49 PM Interpretation: Performing Lab: Notes/Report: [facility] , Total Protein Urine Random 108.9 <=11.9 mg/dL Creatinine Urine Random 157.18 20.00-30 0.00 mg/dL Protein Creatinine Ratio Urine 0.69 Performing Lab: see note ML - [facility] VITAMIN D 25 [place] Reviewed date:01/05/2025 07:25:49 PM Interpretation: Performing Lab: Notes/Report: [facility] , Vitamin D 30.9 <20 ng/mL Vit D deficient 20-<30 ng/mL Vit D insufficient 30-100 ng/mL Vit D sufficient >100 ng/mL Potential Toxicity Performing Lab: see note ML - [facility] PTH, Intact Reviewed date:01/06/2025 08:09:23 PM Interpretation: Performing Lab: Notes/Report: [facility] , PTH, Intact 73 15-65 pg/mL Performed at: - [facility] [address] [id number] Couples Therapist: Ashok Benson PhD, Phone: [phone] Performing Lab: see note - [facility] LB XR knee RT 4V Reviewed date:04/14/2025 07:10:06 PM Interpretation: Performing Lab: Notes/Report: Source Facility: [place] [address] XRay Report Signed Patient: KYLAH ROBIN MR#: [id number] : 1945 Acct:[id number] Age/Sex: 79 / F ADM Date: 04/14/25 Loc: RAD Attending Dr: Dhruv Rubi M.D. Ordering Physician: Dhruv Rubi M.D. Date of Service: 04/14/25 Procedure(s): XR knee RT 4V Accession Number(s): [id number] cc: Dhruv Rubi M.D. [place] [address] Patient Name: KYLAH ROBIN MRN: [id number] date: 1945 Sex: F Assigned Patient Location: RAD Current Patient Location: RAD Accession/Order Number: [id number] Exam Date: 04/14/2025 09:52 Report Date: 04/14/2025 [...] Good M.D. 04/14/2025 9:55 AM Dictation Location: [place] [address] Electronically authenticated by: [id number] Y Date: 04/14/2025 09:55 Dictated By: Cary Good M.D. Signed By: 04/14/2558 DD/ TD/TT: Apple Checker: BNP Reviewed date:04/22/2025 06:54:09 PM Interpretation: Performing Lab: Notes/Report: [facility] , NT Pro B Type Natriuretic Pept 1188.0 <=1800.0 pg/mL Performing Lab: see note ML - [facility] LB CBC AUTO DIFF Reviewed date:04/22/2025 06:54:09 PM Interpretation: Performing Lab: Notes/Report: [facility] , White Blood Count 9.3 4.0-11.0 10 [...] 10 3/uL Performing Lab: see note - [facility] PROF CHEM 8 (BAS METB) Reviewed date:04/22/2025 06:54:09 PM Interpretation: Performing Lab: Notes/Report: [facility] , Sodium 141 136-145 mmol/L Potassium 3.5 [...] mg/dL Performing Lab: see note ML - [facility] Troponin I High Sensitivity Reviewed date:04/22/2025 06:54:09 PM Interpretation: Performing Lab: Notes/Report: [facility] , Troponin I High Sensitivity 11.0 4.0-51.3 pg/mL CUT-OFF POINTS HAVE BEEN ESTABLISHED BASED ON THE FOURTH UNIVERSAL DEFINITION OF MYOCARDIAL INFARCTION. THE UPPER REFERENCE LIMIT (URL) OF TROPONIN, DEFINED THE 99TH PERCENTILE OF cTnI DISTRIBUTION IN A REFERENCE POPULATION, HAS BEEN CONFIRMED THE DECISION THRESHOLD FOR MN DIAGNOSIS. 99TH PERCENTILE = 51.4 PG/ML NOTE: HIGH-SENSITIVITY TROPONIN ASSAY IS NOT INTENDED TO BE USED IN ISOLATION BUT SHOULD BE INTERPRETED IN CONJUNCTION WITH OTHER DIAGNOSTIC AND CLINICAL INFORMATION. Performing Lab: see note - [facility] UA Micro, reflex to culture Reviewed date:04/22/2025 06:54:09 PM Interpretation: Performing Lab: Notes/Report: [facility] , Color Urine LT. YELLOW YELLOW Clarity Urine CLEAR CLEAR Specific [place] Urine 1.015 1.005-1.025 pH Urine 5.5 5.0-9.0 [...] SEEN NONE SEEN #/LPF Urine Culture Indicated YES-[facility] Performing Lab: see note ML - [facility] Urine Culture - [facility] Reviewed date:04/26/2025 08:14:27 PM Interpretation: Performing Lab: Notes/Report: [facility] , Urine Culture - [facility] See Below For Report Urine Culture - [facility] Testing performed at [facility] O:ECESBL Isolated Urine Culture - [facility] [place] Count Organism: 1.1 Antibiotic Interpretation AIDEN Status Urine Culture - [facility] [address] [place] [address] Urine Culture - [facility] Testing performed at [facility] O:ECESBL Isolated Urine Culture - [facility] [place] Count Organism: 1.1 Antibiotic Interpretation AIDEN Status [facility]rine [facility] - [facility] See Below For Report [facility] Testing performed at [facility] O:ECESBL Isolated Urine Culture - [facility] [place] Count Organism: 1.1 Antibiotic Interpretation AIDEN Status Urine Culture - [facility] See Below For Report [facility]rine [facility] Testing performed at [facility] O:ECESBL Isolated Urine Culture - [facility] [place] Count Organism: 1.1 Antibiotic Interpretation AIDEN Status [facility]rine [facility] >100,000 [facility]rine [facility] Testing performed at [facility] O:ECESBL Isolated Urine Culture - [facility] [place] Count Organism: 1.1 Antibiotic Interpretation AIDEN Status Urine Culture - [facility] See Below For Report Urine [facility] Testing performed at [facility] O:ECESBL Isolated Urine Culture - [facility] [place] Count Organism: 1.1 Antibiotic Interpretation AIDEN Status Urine Culture - [facility] Amikacin S F Urine Culture - [facility] Testing performed at [facility] O:ECESBL Isolated Urine Culture - [facility] [place] Count Organism: 1.1 Antibiotic Interpretation AIDEN Status Urine Culture - [facility] Amoxicillin/Clavula vee e S F Urine Culture - [facility] Testing performed at [facility] O:ECESBL Isolated Urine Culture - [facility] [place] Count Organism: 1.1 Antibiotic Interpretation AIDEN Status Urine Culture - [facility] Ampicillin R F Urine Culture - [facility] Testing performed at [facility] O:ECESBL Isolated Urine Culture - [facility] [place] Count Organism: 1.1 Antibiotic Interpretation AIDEN Status Urine Culture - [facility] Aztreonam R F Urine Culture - [facility] Testing performed at [facility] O:ECESBL Isolated Urine Culture - [facility] [place] Count Organism: 1.1 Antibiotic Interpretation AIDEN Status Urine Culture - [facility] Ceftazidime R F Urine Culture - [facility] Testing performed at [facility] O:ECESBL Isolated Urine Culture - [facility] [place] Count Organism: 1.1 Antibiotic Interpretation AIDEN Status Urine Culture - [facility] Ceftazidime/Avibact am S F Urine Culture - [facility] Testing performed at [facility] O:ECESBL Isolated Urine Culture - [facility] [place] Count Organism: 1.1 Antibiotic Interpretation AIDEN Status Urine Culture - [facility] Ceftolozane/Tazobac alvarez S F Urine Culture - [facility] Testing performed at [facility] O:ECESBL Isolated Urine Culture - [facility] [place] Count Organism: 1.1 Antibiotic Interpretation AIDEN Status Urine Culture - [facility] Ciprofloxacin R F Urine Culture - [facility] Testing performed at [facility] O:ECESBL Isolated Urine Culture - [facility] [place] Count Organism: 1.1 Antibiotic Interpretation AIDEN Status Urine Culture - [facility] Ertapenem S F Urine Culture - [facility] Testing performed at [facility] O:ECESBL Isolated Urine Culture - [facility] [place] Count Organism: 1.1 Antibiotic Interpretation AIDEN Status Urine Culture - [facility] Gentamicin R F Urine Culture - [facility] Testing performed at [facility] O:ECESBL Isolated Urine Culture - [facility] [place] Count Organism: 1.1 Antibiotic Interpretation AIDEN Status Urine Culture - [facility] Levofloxacin R F Urine Culture - [facility] Testing performed at [facility] O:ECESBL Isolated Urine Culture - [facility] [place] Count Organism: 1.1 Antibiotic Interpretation AIDEN Status Urine Culture - [facility] Meropenem S F Urine Culture - [facility] Testing performed at [facility] O:ECESBL Isolated Urine Culture - [facility] [place] Count Organism: 1.1 Antibiotic Interpretation AIDEN Status Urine Culture - [facility] Meropenem/Vaborbact am S F Urine Culture - [facility] Testing performed at [facility] O:ECESBL Isolated Urine Culture - [facility] [place] Count Organism: 1.1 Antibiotic Interpretation AIDEN Status Urine Culture - [facility] Nitrofurantoin S F Urine Culture - [facility] Testing performed at [facility] O:ECESBL Isolated Urine Culture - [facility] [place] Count Organism: 1.1 Antibiotic Interpretation AIDEN Status Urine Culture - [facility] Tetracycline S F Urine Culture - [facility] Testing performed at [facility] O:ECESBL Isolated Urine Culture - [facility] [place] Count Organism: 1.1 Antibiotic Interpretation AIDEN Status Urine Culture - [facility] Tigecycline S F Urine Culture - [facility] Testing performed at [facility] O:ECESBL Isolated Urine Culture - [facility] [place] Count Organism: 1.1 Antibiotic Interpretation AIDEN Status Urine Culture - [facility] Tobramycin R F Urine Culture - [facility] Testing performed at [facility] O:ECESBL Isolated Urine Culture - [facility] [place] Count Organism: 1.1 Antibiotic Interpretation AIDEN Status Urine Culture - [facility] Ampicillin/Sulbacta m S F Urine Culture - [facility] Testing performed at [facility] O:ECESBL Isolated Urine Culture - [facility] [place] Count Organism: 1.1 Antibiotic Interpretation AIDEN Status Urine Culture - [facility] Cefazolin R F Urine Culture - [facility] Testing performed at [facility] O:ECESBL Isolated Urine Culture - [facility] [place] Count Organism: 1.1 Antibiotic Interpretation AIDEN Status Urine Culture - [facility] Cefepime R F Urine Culture - [facility] Testing performed at [facility] O:ECESBL Isolated Urine Culture - [facility] [place] Count Organism: 1.1 Antibiotic Interpretation AIDEN Status Urine Culture - [facility] Ceftriaxone R F Urine Culture - [facility] Testing performed at [facility] O:ECESBL Isolated Urine Culture - [facility] [place] Count Organism: 1.1 Antibiotic Interpretation AIDEN Status Urine Culture - [facility] Cefuroxime R F Urine Culture - [facility] Testing performed at [facility] O:ECESBL Isolated Urine Culture - [facility] [place] Count Organism: 1.1 Antibiotic Interpretation AIDEN Status Urine Culture - [facility] Piperacillin/Tazoba cta m S F Urine Culture - [facility] Testing performed at [facility] O:ECESBL Isolated Urine Culture - [facility] [place] Count Organism: 1.1 Antibiotic Interpretation AIDEN Status [facility]rine Culture - [facility] Trimethoprim/Sulfa R F Urine Culture - [facility] Testing performed at [facility] O:ECESBL Isolated Urine Culture - [facility] [place] Count Organism: 1.1 Antibiotic Interpretation AIDEN Status Performing Lab: see note ML - [facility] LB SEE REPORT - Scaffold Setter Id information not found for OBX-specific physics and astronomy professor legend XR chest 1V Reviewed date:04/22/2025 06:54:09 PM Interpretation: Performing Lab: Notes/Report: Source Facility: [place] [address] XRay Report Signed Patient: KYLAH ROBIN MR#: [id number] : 1945 Acct:[id number] Age/Sex: 79 / F ADM Date: 04/21/25 Loc: ER Attending Dr: Ordering Physician: Dmitriy Lynne Date of Service: 04/21/25 Procedure(s): XR chest 1V Accession Number(s): [id number] cc: Dmitriy Lynne; Dhruv Rubi M.D. [place] [address] Patient Name: KYLAH ROBIN MRN: [id number] date: 1945 Sex: F Assigned Patient Location: ER Current Patient Location: ER Accession/Order Number: [id number] Exam Date: 04/21/2025 21:57 Report Date: 04/21/2025 [...] Grey M.D. 04/21/2025 9:58 PM Dictation Location: [place] [address] Electronically authenticated by: [id number] Y Date: 04/21/2025 21:58 Dictated By: Juan Grey M.D. Signed By: 04/21/252199 DD/ 57 TD/TT: Apple Checker: CBC AUTO DIFF Reviewed date:05/02/2025 09:35:15 PM Interpretation: Performing Lab: Notes/Report: [facility] , White Blood Count 16.3 4.0-11.0 10 [...] see note ML - [facility] LB LACTATE or LACTIC ACID Reviewed date:05/02/2025 09:35:15 PM Interpretation: Performing Lab: Notes/Report: [facility] , Lactate/Lactic Acid 2.7 0.4-2.0 mmol/L RESULT S CALLED TO DMITRIY LYNNE Performing Lab: see note ML - [facility] LB PROF 14(COMP METB) Reviewed date:05/02/2025 09:35:15 PM Interpretation: Performing Lab: Notes/Report: [facility] , Sodium 133 136-145 mmol/L Potassium 4.8 [...] see note ML - [facility] LB SARS-CoV-2 Ag* Reviewed date:05/02/2025 09:35:15 PM Interpretation: Performing Lab: Notes/Report: [facility] , SARS-CoV-2 Ag POSITIVE NEGATIVE This test [...] sooner. Performing Lab: see note ML - [facility] LB UA Micro, reflex to culture Reviewed date:05/02/2025 09:35:15 PM Interpretation: Performing Lab: Notes/Report: [facility] , Color Urine LT. YELLOW YELLOW Clarity Urine CLEAR CLEAR Specific [place] Urine 1.020 1.005-1.025 pH Urine 6.0 5.0-9.0 [...] see note ML - [facility] LB XR chest 1V Reviewed date:05/02/2025 09:35:15 PM Interpretation: Performing Lab: Notes/Report: Source Facility: [facility] [place] [address] [place] [address] XRay Report Signed Patient: KYLAH ROBIN MR#: [id number] : 1945 Acct:[id number] Age/Sex: 79 / F ADM Date: 04/30/25 Loc: ER Attending Dr: Ordering Physician: Dmitriy Lynne Date of Service: 04/30/25 Procedure(s): XR chest 1V Accession Number(s): [id number] cc: Dmitriy Lynne; Dhruv Rubi M.D. The [place] [id number] Patient Name: KYLAH ROBIN MRN: [id number] date: 1945 Sex: F Assigned Patient Location: ER Current Patient Location: ED.MAIN Accession/Order Number: [id number] Exam Date: 04/30/2025 22:00 Report Date: 04/30/2025 [...] Hernandez M.D. 04/30/2025 10:01 PM Dictation Location: [place] [address] Electronically authenticated by: [id number] Y Date: 04/30/2025 22:01 Dictated By: Mariusz Hernandez D.O. Signed By: 04/30/252202 DD/ 00 TD/TT: Apple Checker: GINNY LOCKE W or MICROSCOPIC Reviewed date:05/25/2025 08:41:24 PM Interpretation: Performing Lab: Notes/Report: [facility] , Color Urine LT. YELLOW YELLOW Clarity Urine CLEAR CLEAR Specific [place] Urine 1.010 1.005-1.025 pH Urine 5.5 5.0-9.0 [...] see note ML - [facility] LB [facility]rine [facility] Reviewed date:05/28/2025 01:00:41 PM Interpretation: Performing Lab: Notes/Report: [facility] , Urine Culture - [facility] See Below For Report Urine Culture - [facility] Testing performed at [facility] O:ECESBL Isolated Urine Culture - [facility] [place] Count Organism: 1.1 Antibiotic Interpretation AIDEN Status Urine Culture - [facility] [address] [place] [address] Urine Culture - [facility] Testing performed at [facility] O:ECESBL Isolated Urine Culture - [facility] [place] Count Organism: 1.1 Antibiotic Interpretation AIDEN Status Urine Culture - [facility] See Below For Report Urine Culture - [facility] Testing performed at [facility] O:ECESBL Isolated Urine Culture - [facility] [place] Count Organism: 1.1 Antibiotic Interpretation AIDEN Status Urine Culture - [facility] See Below For Report Urine Culture - [facility] Testing performed at [facility] O:ECESBL Isolated Urine Culture - [facility] [place] Count Organism: 1.1 Antibiotic Interpretation AIDEN Status Urine Culture - [facility] >100,000 Urine Culture [facility] Testing performed at [facility] O:ECESBL Isolated Urine Culture - [facility] [place] Count Organism: 1.1 Antibiotic Interpretation AIDEN Status Urine Culture - [facility] See Below For Report Urine Culture - [facility] Testing performed at [facility] O:ECESBL Isolated Urine Culture - [facility] [place] Count Organism: 1.1 Antibiotic Interpretation AIDEN Status Urine Culture - [facility] Amikacin S F Urine Culture - [facility] Testing performed at [facility] O:ECESBL Isolated Urine Culture - [facility] [place] Count Organism: 1.1 Antibiotic Interpretation AIDEN Status Urine Culture - [facility] Amoxicillin/Clavula vee e S F Urine Culture - [facility] Testing performed at [facility] O:ECESBL Isolated Urine Culture - [facility] [place] Count Organism: 1.1 Antibiotic Interpretation AIDEN Status Urine Culture - [facility] Ampicillin R F Urine Culture - [facility] Testing performed at [facility] O:ECESBL Isolated Urine Culture - [facility] [place] Count Organism: 1.1 Antibiotic Interpretation AIDEN Status Urine Culture - [facility] Aztreonam R F Urine Culture - [facility] Testing performed at [facility] O:ECESBL Isolated Urine Culture - [facility] [place] Count Organism: 1.1 Antibiotic Interpretation AIDEN Status Urine Culture - [facility] Ceftazidime R F Urine Culture - [facility] Testing performed at [facility] O:ECESBL Isolated Urine Culture - [facility] [place] Count Organism: 1.1 Antibiotic Interpretation AIDEN Status Urine Culture - [facility] Ceftazidime/Avibact am S F Urine Culture - [facility] Testing performed at [facility] O:ECESBL Isolated Urine Culture - [facility] [place] Count Organism: 1.1 Antibiotic Interpretation AIDEN Status Urine Culture - [facility] Ceftolozane/Tazobac alvarez S F Urine Culture - [facility] Testing performed at [facility] O:ECESBL Isolated Urine Culture - [facility] [place] Count Organism: 1.1 Antibiotic Interpretation AIDEN Status Urine Culture - [facility] Ciprofloxacin R F Urine Culture - [facility] Testing performed at [facility] O:ECESBL Isolated Urine Culture - [facility] [place] Count Organism: 1.1 Antibiotic Interpretation AIDEN Status Urine Culture - [facility] Ertapenem S F Urine Culture - [facility] Testing performed at [facility] O:ECESBL Isolated Urine Culture - [facility] [place] Count Organism: 1.1 Antibiotic Interpretation AIDEN Status Urine Culture - [facility] Gentamicin R F Urine Culture - [facility] Testing performed at [facility] O:ECESBL Isolated Urine Culture - [facility] [place] Count Organism: 1.1 Antibiotic Interpretation AIDEN Status Urine Culture - [facility] Levofloxacin R F Urine Culture - [facility] Testing performed at [facility] O:ECESBL Isolated Urine Culture - [facility] [place] Count Organism: 1.1 Antibiotic Interpretation AIDEN Status Urine Culture - [facility] Meropenem S F Urine Culture - [facility] Testing performed at [facility] O:ECESBL Isolated Urine Culture - [facility] [place] Count Organism: 1.1 Antibiotic Interpretation AIDEN Status Urine Culture - [facility] Meropenem/Vaborbact am S F Urine Culture - [facility] Testing performed at [facility] O:ECESBL Isolated Urine Culture - [facility] [place] Count Organism: 1.1 Antibiotic Interpretation AIDEN Status Urine Culture - [facility] Nitrofurantoin S F Urine Culture - [facility] Testing performed at [facility] O:ECESBL Isolated Urine Culture - [facility] [place] Count Organism: 1.1 Antibiotic Interpretation AIDEN Status Urine Culture - [facility] Tetracycline S F Urine Culture - [facility] Testing performed at [facility] O:ECESBL Isolated Urine Culture - [facility] [place] Count Organism: 1.1 Antibiotic Interpretation AIDEN Status Urine Culture - [facility] Tigecycline S F Urine Culture - [facility] Testing performed at [facility] O:ECESBL Isolated Urine Culture - [facility] [place] Count Organism: 1.1 Antibiotic Interpretation AIDEN Status Urine Culture - [facility] Tobramycin R F Urine Culture - [facility] Testing performed at [facility] O:ECESBL Isolated Urine Culture - [facility] [place] Count Organism: 1.1 Antibiotic Interpretation AIDEN Status Urine Culture - [facility] Ampicillin/Sulbacta m S F Urine Culture - [facility] Testing performed at [facility] O:ECESBL Isolated Urine Culture - [facility] [place] Count Organism: 1.1 Antibiotic Interpretation AIDEN Status Urine Culture - [facility] Cefazolin R F Urine Culture - [facility] Testing performed at [facility] O:ECESBL Isolated Urine Culture - [facility] [place] Count Organism: 1.1 Antibiotic Interpretation AIDEN Status Urine Culture - [facility] Cefepime R F Urine Culture - [facility] Testing performed at [facility] O:ECESBL Isolated Urine Culture - [facility] [place] Count Organism: 1.1 Antibiotic Interpretation AIDEN Status Urine Culture - [facility] Ceftriaxone R F Urine Culture - [facility] Testing performed at [facility] O:ECESBL Isolated Urine Culture - [facility] [place] Count Organism: 1.1 Antibiotic Interpretation AIDEN Status Urine Culture - [facility] Cefuroxime R F Urine Culture - [facility] Testing performed at [facility] O:ECESBL Isolated Urine Culture - [facility] [place] Count Organism: 1.1 Antibiotic Interpretation AIDEN Status Urine Culture - [facility] Piperacillin/Tazoba cta m S F Urine Culture - [facility] Testing performed at [facility] O:ECESBL Isolated Urine Culture - [facility] [place] Count Organism: 1.1 Antibiotic Interpretation AIDEN Status Urine Culture - [facility] Trimethoprim/Sulfa R F Urine Culture - [facility] Testing performed at [facility] O:ECESBL Isolated Urine Culture - [facility] [place] Count Organism: 1.1 Antibiotic Interpretation AIDEN Status Performing Lab: see note ML - [facility] SEE REPORT - Scaffold Setter Id information not found for OBX-specific physics and astronomy professor legend CA echo doppler complete Reviewed date:06/17/2025 07:52:25 PM Interpretation: Performing Lab: Notes/Report: Source Facility: [facility] [place] [address] [place] [address] Cardiology Report Signed Patient: KYLAH ROBIN MR#: [id number] : 1945 Acct:[id number] Age/Sex: 79 / F ADM Date: 06/16/25 Loc: CARD Attending Dr: Carlie Prescott M.D. Ordering Physician: Carlie Prescott M.D. Date of Service: 06/16/25 Procedure(s): CA echo doppler complete Accession Number(s): [id number] cc: Carlie Prescott M.D.; Dhruv Rubi M.D. Patient Name: KYLAH ROBIN MR#: [id number] : 1945 Exam Date: 06/16/2025 Ordering Doctor: DR CARLIE PRESCOTT M.D. ECHOCARDIOGRAM REPORT PROCEDURE: CA ECHO DOPPLER COMPLETE INDICATIONS: LVH, Aortic and Mitral valve stenosis, hypertension, diabetes COMPARISON: None. DESCRIPTION: COMPLETE ECHOCARDIOGRAM Real-time transthoracic echocardiography with 2D, M-mode, spectral and color flow Doppler performed. QUALITY: Technical quality was good. LEFT VENTRICLE: Normal chamber size. Mild left ventricular enlargement proximal septal hypertrophy (sigmoid septum). Calculated left ventricular ejection fraction is 67%. LV EF: Global left ventricular systolic function is normal; visually estimated ejection fraction is 60 to 65%. No significant wall motion abnormalities DIASTOLIC: Grade II diastolic dysfunction. E/E' suggests volume overload. ATRIAL SEPTUM: Visually appears intact. LEFT ATRIUM: Moderate dilatation. RIGHT ATRIUM: Normal chamber size. RIGHT VENTRICLE: Normal chamber size. Normal right ventricular systolic function. TRICUSPID VALVE: Normal mobility and thickness. No stenosis with mild regurgitation. Doppler studies reveal mildly (35-45) elevated right sided pressures. RVSP 37 mmHg MITRAL VALVE: Normal mobility and thickness. Elevated gradients likely due to volume overload. MVA 2.3 cm2. Moderate mitral annular calcification. Mild mitral regurgitation. AORTIC VALVE: Normal trileaflet appearance. Mildly calcified aortic valve. Mildly diminished mobility. No evidence of aortic valve stenosis. No aortic regurgitation. AORTIC ROOT: Normal diameter and appearance. Ascending aorta is normal in size. PULMONIC VALVE: Normal thickness and mobility. No stenosis. No regurgitation. PERICARDIUM: No evidence of pericardial effusion. IVC: Not well visualized. CONCLUSION: 1. Global left ventricular systolic function is normal; visually estimated ejection fraction is 60 to 65% 2. Normal right ventricular size and systolic function 3. Mild left ventricular hypertrophy 4. Grade 2 diastolic dysfunction 5. E/E' suggests volume overload 6. The left atrium is moderately dilated 7. Mild tricuspid regurgitation 8. Mildly elevated right ventricular systolic pressure; RVSP 37 mmHg 9. Mild mitral regurgitation Adult Echocardiography Procedure Report Left Ventricle LVEDD (3.7 - 5.6 cm): 4.59 cm LVESD (2.2 - 4.0 cm): 3.43 cm LVIVS thickness (0.6 - 1.2 cm): 1.82 cm LVPW thickness (0.5 - 1.0 cm): 1.08 cm e': 0.07 m/s E - e': 13.60 LVOT Max Gradient: 4.36 mm[Hg] LVOT Area (cm2): 1.04 m/s Peak Velocity (LVOT): 1.04 m/s Mean Velocity (LVOT): 0.64 m/s LVOT Diameter 2.29 cm Left Ventricular Ejection Fraction: 66.73 % Left Atrium LA Volume Index (2D A2C): 42.83 ml/m2 Left Atrium Systolic Dimension: 4.78 cm Mitral Valve MV E to A Ratio: 0.73 Mitral Valve A-Wave Peak Velocity: 1.38 m/s Mitral Valve E-Wave Peak Velocity: 1.00 m/s Right Ventricle Aorta AO Root Diam: 3.51 cm Ascending Ao Diam: 2.94 cm Aortic Valve AoV Area (Peak Shlomo): 2.78 cm2, 2.78 cm2 AoV Area (VTI): 2.76 cm2, 2.76 cm2 Peak Velocity(Antegrade Flow): 1.55 m/s Peak Gradient(Antegrade Flow): 9.64 mm[Hg] Mean Velocity(Antegrade Flow): 1.11 m/s Mean Gradient(Antegrade Flow): 5.51 mm[Hg] Velocity Time Integral: 42.56 cm Tricuspid Valve Peak Velocity (Regurgitant Flow): 2.92 m/s Pulmonic Valve Peak Gradient: 6.34 mm[Hg], 5.11 mm[Hg] Right Atrium Right Atrium Systolic Pressure: 34.83 ml, 34.83 ml Dictated by: Carlie Prescott M.D. on 06/17/2025 at 08:39 Approved by: Carlie Prescott M.D. on 06/17/2025 at 08:45 Dictated By: Carlie Prescott M.D. Signed By: 06/17/25845 DD/ 4 TD/TT: Apple Checker: Reason For Referral No Information Medications Medication SIG (Take, Route, Frequency, Duration) Notes Start Date End Date Status Ferrous Sulfate 325 (65 Fe) MG 1 tablet Orally Twice Daily Active Pantoprazole Sodium 40 mg TAKE 1 TABLET BY MOUTH DAILY; Duration: 90 Active OneTouch Ultra Test test blood glucose d aily; Duration: 90 days Active OneTouch Ultra Blue Active OneTouch Ultra 2 Act janet NovoLOG FlexPen 100 UNIT/ML 12 in mornin g, 16 at lunch, 22 at supper Subcutaneous Active Nitroglycerin 0.4 MG as directed Sublingual PRN Active Levothyroxine Sodium 100 mcg TAKE 1 TABLET BY MOUTH IN THE MORNING ON AN EMPTY STOMACH; Duration: 90 Active Lasix 20 MG 1 tablet Orally Once a day Active Lancets Super Thin A ctive Isosorbide Mononitrate ER 120 MG 1 tablet Oral once daily; Duration: 30 days Active Tresiba FlexTouch 100 UNIT/ML 30 units Subcutaneous Twice Daily Active hydrALAZINE HCl 50 MG 1 tablet with food Orally Three times a day Active Synvisc One 48 MG/6ML Inject Intra-artic ular In right knee; Duration: 180 days 04/20/2025 Active levoFLOXacin 750 MG 1 tablet Orally Once a day; Duration: 10 day(s) 06/08/2025 Active Benzonatate 200 MG 1 capsule Orally Thr ee times a day; Duration: 7 days 06/08/2025 Active Lipitor 80 MG 1 tablet Orally Once a day; Duration: 90 days Active Liothyronine Sodium 5 mcg Take 1 tablet orally once daily; Duration: 30 days Active predniSONE 20 MG 3 tablets Orally Onc e a day; Duration: 5 days 06/08/2025 Active cloNIDine HCl 0.1 MG 1 tablet every four hours as needed Orally Q4; Duration: 30 days As needed Active Carvedilol 25 mg TAKE 1 TABLET BY TWICE DAILY (7AM and 7PM) WITH FOOD; Duration: 30 Active Magnesium Oxide 400 MG 1 tablet Orally t hree times daily Active Aspirin 81 81 MG 1 tablet Orally Once a day Active Allopurinol 300 MG 1 tablet Orally Once a day; Duration: 30 days Active Accu-Chek Holly Plus w/Device as directed Active Cefdinir 300 MG 2 capsule Orally onc e a day; Duration: 10 days 06/08/2025 Active Immunizations Vaccine Route Administration Date Status Comme nts Flu, Fluad (4274-6170) (78618) 65 yrs+, single-dose syringe IM Intramuscular 07/11/2023 Administered Flu, Fluad (51960) 65 yrs and older, single-dose syringe (3334-8824) IM Intramuscular 07/08/2024 Administered Social History Tobacco [...] Problem Status W/U Status Risk Notes Problem Peripheral vascular disease (160606254) Peripheral vascular disease, unspecified (I73.9) Active confirmed Problem Age-related osteoporosis (966117946) Age-related osteoporosis without current pathological fracture (M81.0) Active confirmed Problem Chronic kidney disease (659664181) Chronic kidney disease, unspecified (N18.9) Active confirmed Problem Anemia in chronic kidney disease (630281710) Anemia in chronic kidney disease (D63.1) Active confirmed Problem Hypomagnesemia (480055418) Hypomagnesemia (E83.42) Active confirmed Problem Hyperkalemia (97311730) Hyperkalemia (E87.5) Active confirmed Problem Hypertensive heart failure (60343107) Hypertensive heart disease with heart failure (I11.0) Active confirmed Problem Unstable angina (8778220) Unstable angina (I20.0) Active confirmed Problem 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) Active confirmed Problem Disorder of arteries and arterioles, unspecified (I77.9) Active confirmed Problem Osteoarthritis of knee (145364711) Unilateral primary osteoarthritis, left knee (M17.12) Active confirmed Problem Collapsed vertebra (23840015) Collapsed vertebra, not elsewhere classified, lumbar region, subsequent encounter for fracture with delayed healing (M48.56XG) Active confirmed Problem Chronic kidney disease stage 4 (571826661) Chronic kidney disease, stage 4 (severe) (N18.4) Active confirmed Problem Chest pain (45328101) Chest pain (R07.9) Active confirmed Problem Hyperlipidemia (14034315) Hyperlipidemia (E78.5) Active confirmed Problem Mitral regurgitation (88039280) Mitral regurgitation (I34.0) Active confirmed Problem Hypertension (04331091) Hypertension (I10) Active confirmed Problem Gastroesophageal reflux disease (186232964) GERD (gastroesophageal reflux disease) (K21.9) Active confirmed Problem Hypothyroidism (75805292) Hypothyroidism (E03.9) Active confirmed Problem Coronary artery disease (05758635) CAD (coronary artery disease) (I25.10) Active confirmed Problem Hypertension (01366289) HTN (hypertension) (I10) Active confirmed Problem Edema (69619950) Edema (R60.9) Active confirmed Problem Coronary artery disease (36664620) Coronary artery disease (I25.10) Active confirmed Problem Arthritis (2950714) Arthritis (M19.90) Active c onfirmed Problem Osteopenia (924155203) Osteopenia (M85.80) Active confirmed Problem Gout (31338822) Gout (M10.9) Active confirmed Problem Dyspnea (428776047) Dyspnea (R06.00) Active con firmed Problem Osteoarthritis of knee (742875906) Osteoarthritis of knee (M17.9) Active confirmed Problem Urinary tract infectious disease (12589730) UTI (urinary tract infection) (N39.0) Active confirmed Problem Paroxysmal atrial fibrillation (615798037) Paroxysmal atrial fibrillation (I48.0) Active confirmed Problem Acute sinusitis (26360407) Acute sinusitis (J01.90) Active confirmed Problem Allergic rhinitis (24966673) Allergic rhinitis (J30.9) Active confirmed Problem Diabetes mellitus type 2 (disorder) (57326141) DM2 (diabetes mellitus, type 2) (E11.9) Active confirmed Problem Long-term 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 (331161533) residential 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 (Z79.4) Active confirmed Problem Acute bronchitis (17962137) Acute bronchitis (J20.9) Active confirmed Problem Acquired hypothyroidism (557205126) Acquired hypothyroidism (E03.9) Active confirmed Problem Cellulitis (505924473) Cellulitis (L03.90) Active confirmed Problem Cataract (980228708) Cataract (H26.9) Active confirmed Problem Mitral insufficiency (78489631) Mitral insufficiency (I34.0) Active confirmed Problem Contact dermatitis (08784660) Contact dermatitis (L25.9) Active confirmed Problem Cervical arthritis (937747919) Cervical arthritis (M46.92) Active confirmed Problem Diabetic retinopathy (5638364) Diabetic retinopathy (E11.319) Active confirmed Problem Serum vitamin B12 low (403797434) Low vitamin B12 level (E53.8) Active confirmed Problem Overweight (152590947) Over weight (E66.3) Active confirmed Problem Iron deficiency anemia (35579244) Anemia, iron deficiency (D50.9) Active confirmed Problem Ventricular hypertrophy (942761301) Ventricular hypertrophy (I51.7) Active confirmed Problem Primary hypothyroidism (45356022) Primary hypothyroidism (E03.9) Active confirmed Problem Iron deficiency anemia (57151642) Fe deficiency anemia (D50.9) Active confirmed Problem Hypertensive urgency (370568481) Hypertensive urgency (I10) Active confirmed Problem Vaginal discharge (440187926) Vaginal discharge (N89.8) Active confirmed Problem Type 2 diabetes mellitus with peripheral angiopathy (707987919) Diabetes mellitus type 2 with peripheral artery disease (E11.51) Active confirmed Problem At risk for falls (019320427) At risk for falls (Z91.81) Active confirmed Problem Mild nonproliferative retinopathy due to type 2 diabetes mellitus (804741343610446) Type 2 diabetes mellitus 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, 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) Active confirmed Problem Hypertensive urgency (465471493) Hypertensive urgency (I16.0) Active confirmed Problem Hypertensive emergency (510643155470157) Hypertensive emergency (I16.1) Active confirmed Problem Diabetic renal disease (961104354) 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) Active confirmed Problem Osteoarthritis of knee (812023523) Osteoarthritis of right knee (M17.11) Active confirmed Problem Diabetes mellitus (61975840) Diabetes mellitus (E11.9) Active confirmed Problem COVID-19 (445678982) COVID-19 (U07.1) Active confirmed Problem Chronic kidney disease stage 4 (181652119) Acute worsening of stage 4 chronic kidney disease (N18.4) Active confirmed Problem Pneumonia caused by Severe acute respiratory syndrome coronavirus (disorder) (572657765) Pneumonia due to Coronavirus disease 2019 (J12.82) Active confirmed Problem Low back pain (461577536) Low back pain, unspecified (M54.50) Active confirmed Problem Low back pain (finding) (404823945) Other low back pain (M54.59) Active confirmed Vital Signs Heart Rate 67 /min 12/31/2024 Oximetry 98 % 03/08/2025 Blood pressure diastolic 62 mm Hg 06/08/2025 Height 66 in 06/08/2025 Blood pressure systolic 168 mm Hg 06/08/2025 Weight 190.4 lbs 06/08/2025 BMI 30.73 kg/m2 06/08/2025 Encounters Encounter Location Date Provider Diagnosis [address] [address] 11/18/2024 Jeff Hoy Paroxysmal atrial fibrillation I48.0 ; Chronic kidney disease, stage 4 (severe) N18.4 ; Acute worsening of stage 4 chronic kidney disease N18.4 ; Hypertensive heart disease with heart failure I11.0 and Chronic kidney disease due to diabetes mellitus E11.[address] [address] 03/08/2025 Jeff Hoy Hypertension I10 ; Paroxysmal atrial fibrillation I48.0 and Diabetes mellitus type 2 with peripheral artery disease E11.[address] [address] 06/08/2025 Jeff Hoy Acute bronchitis, unspecified organism J20.[address] [address] 11/24/2024 Jeff Hoy HTN (hypertension) I [address] [address] 04/14/2025 Jeff Hoy [address] [place] [address] 05/17/2025 Jeff Hoy Low vitamin B12 leve l E53.8 [facility] [address] [place] [facility] [place] [address] 10/13/2024 Jeff Hoy Low vitamin B12 leve l E53.8 [facility] [address] [place] [address] 11/13/2024 Jeff Hoy Low vitamin B12 leve l E53.8 [facility] [address] [place] [address] 12/11/2024 Jeff Hoy Low vitamin B12 leve l E53.8 [facility] [address] [place] [address] 01/11/2025 Jeff Hoy Low vitamin B12 leve l E53.8 [facility] [address] [place] [address] 02/10/2025 Jeff Hoy Low vitamin B12 leve l E53.8 [facility] [address] [place] [address] 03/15/2025 Jeff Hoy Low vitamin B12 leve l E53.8 [facility] [address] [place] [address] 07/08/2024 Jeff Hoy Encounter for immuni zation Z23 [facility] [address] [place] [address] 08/10/2024 Jeff Hoy Low vitamin B12 leve l E53.8 [facility] [address] [place] [address] 04/29/2025 Jeff Hoy Hypertension I10 and Osteoarthritis of right knee M17.11 [facility] [address] [place] [address] 09/22/2024 Jeff Hoy Dyspnea R06.00 and A cute bronchitis J20.9 [facility] [address] [place] [address] 12/31/2024 Jeff Hoy Chest pain R07.9 ; Hypertension I10 ; Coronary artery disease I25.10 and Dyspnea R06.00 [facility] [address] [place] [address] 03/05/2025 Jeff Connellyy Type 2 diabetes diony itus 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, bilateral E11.3293 [facility] [address] [place] [address] 04/26/2025 Jeff Connellyy Hypertension I10 ; G ERD (gastroesophageal reflux disease) K21.9 and Type 2 diabetes mellitus 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, bilateral E11.3293 [facility] [address] [place] [facility] [address] 05/02/2025 Jeff Rubi [facility] [address] [place] [facility] [place] [address] 05/24/2025 Jeff Rubi [facility] [address] [place] [facility] [address] 05/25/2025 Jeff Rubi Dysuria R30.0 [facility] [address] [place] [address] 05/28/2025 Jeff Rubi [facility] [address] [place] [address] 06/02/2025 Jeff Rubi [facility] [address] [place] [address] 06/08/2025 Jeff Rubi [facility] [address] [place] [address] 03/10/2025 Jeff mary [facility] [address] [place] [address] 04/13/2025 Jeff Hoy Right knee pain M25. 561 [facility] [address] [place] [address] 04/14/2025 Jeff Rubi [facility] [address] [place] [address] 04/22/2025 Jeff Rubi [facility] [address] [place] [address] 04/26/2025 Jeff Rubi [facility] [address] [place] [address] 04/27/2025 Jeff Rubi [facility] [address] [facility] [place] [address] 12/22/2024 Jeff Rubi [facility] [address] [place] [address] 01/18/2025 Jeff Connellyy [facility] [address] [facility] [place] [address] 01/18/2025 Jeff Rubi [facility] [address] [facility] [place] [address] 02/16/2025 Jeff mary [facility] [address] [facility] [place] [address] 03/03/2025 Jeff Hoy Right knee pain M25. 561 [facility] [address] [facility] [place] [address] 03/03/2025 Jeff Rubi [facility] [address] [facility] [place] [address] 09/04/2024 Jeff Hoy UTI (urinary tract infection) N39.0 [facility] [address] [facility] [place] [address] 09/04/2024 Jeff [facility] [address] [facility] [place] [address] 09/07/2024 Jeff Hoy UTI (urinary tract infection) N39.0 [facility] [address] [facility] [place] [address] 11/24/2024 Jeff Rubi [facility] [address] [facility] [place] [address] 12/16/2024 Jeff Hoy Chronic kidney disea se, stage 4 (severe) N18.4 [facility] [address] [facility] [place] [address] 12/17/2024 Jeff Hoy Chronic kidney disea se, stage 4 (severe) N18.4 [facility] [address] [facility] [place] [address] 06/29/2024 Jeff Rubi [facility] [address] [place] [address] 08/14/2024 Jeff Rubi [facility] [address] [place] [facility] [place] [address] 09/02/2024 Jeff Rubi [facility] [address] [place] [address] 09/02/2024 Jeff Rubi Assessments Encounter Date Diagnosis (ICD Code) Assessment Notes Treatment Notes Treatment Clinical Notes Section Notes 07/08/2024 Encounter for immunization (ICD-10 - Z23) [...] 03/08/2025 Paroxysmal atrial fibrillation (ICD-10 - I48.0) 04/29/2025 Hypertension (ICD-10 - I10) up alittel bit - discussed diet cahnges - keep with meds 04/29/2025 Osteoarthritis of right knee (ICD-10 - M17.11) 05/17/2025 Low vitamin B12 level (ICD-10 - E53.8) 06/08/2025 Acute bronchitis, unspecified organism (ICD-10 - J20.9) Rest and drink more liquids, especially water. You may use a humidifier or vaporizer to help keep the drainage moist. Izbu-uik-xievutc Nasal Saline may help the stuffy and runny nose. Use Ibuprofen and or Tylenol as needed for fever, chills, body aches or pain. Children 5 years old should not be given pskz-dzl-fxcinox cough and cold medications such as guaifenesin and dextromethorphan. If you're over age 5, you may try amre-wta-acdtllo cold medications such as guaifenesin and dextromethorphan, [...] to the emergency room or call 911 03/15/2025 Low vitamin B12 level (ICD-10 - E53.8) 04/26/2025 Hypertension (ICD-10 - I10) 04/26/2025 GERD (gastroesophageal reflux disease) (ICD-10 - K21.9) 11/18/2024 Chronic kidney disease, stage 4 (severe) (ICD-10 - N18.4) 11/18/2024 Paroxysmal atrial fibrillation (ICD-10 - I48.0) 09/04/2024 UTI (urinary tract infection) (ICD-10 - N39.0) 09/07/2024 UTI (urinary tract infection) (ICD-10 - N39.0) 12/16/2024 Chronic kidney disease, stage 4 (severe) (ICD-10 - N18.4) 12/17/2024 Chronic kidney disease, stage 4 (severe) (ICD-10 - N18.4) 03/03/2025 Right knee pain (ICD-10 - M25.561) 04/13/2025 Right knee pain (ICD-10 - M25.561) 05/25/2025 Dysuria (ICD-10 - R30.0) 11/18/2024 Acute worsening of stage 4 chronic [...] Sensitivity Troponin 12/31/2024 [facility] Ankle Brachial Index (57412) 024 BNP 06/18/2024 CULTURE URINE 06/18/2024 CULTURE [...] Coverage End Date [employer] MED[employer]ARE [address] [place], [place] [id number] Kylah Robin Self - patient is [...]
--- OUTSIDE RECORDS SUMMARY | 2025-06-29 06:45 | XMS_ITS | CCD ---
Author Organization [facility]iniSyky Care Team Providers Care Wood Type Finisher Name Role Phone PHYSICIAN, DEFAULT Unavailable Unavailable [...] Unavailable Dhruv Rubi MD Primary Care Provider [phone] Dhruv Rubi MD Primary Care Provider [phone] Dhruv Rubi MD Primary Care Provider [phone] Dhruv Rubi MD Primary Care Provider [phone] Dhruv Rubi MD Primary Care Provider [phone] Dhruv Rubi MD Primary Care Provider [phone] Dmitriy Lynne MD Attending Provider Dhruv Rubi MD Attending Provider [phone] Dmitriy Lynne Admitting Unavailable Dmitriy Lynne Attending Unavailable Dhruv Rubi Primary Care Unavailable Dhruv Rubi Attending Unavailable Dhruv Rubi Admitting Unavailable LORRAINE MAYER Attending Unavailable LORRAINE MAYER Attending Unavailable GA LAI Attending Unavailable LORRAINE MAYER Attending Unavailable LORRAINE MAYER Referring Unavailable GREG TINEO Attending Unavailable LORRAINE MAYER Attending Unavailable GA LAI Attending Unavailable STEFANO CATHERINE Attending Unavailable ALEJANDRO ORTIZ Attending Unavailable Allergies Allergy Classification Reported Allergen(s) Allergy Type Date of Onset Reaction(s) Facility (20 sources) amLODIPine; Translations: [AMLODIPINE] Drug Allergy 03-28-20 05 Unknown, Rash [facility] Repository (20 sources) Amoxicillin / Clavulanate Drug Allergy 11-23-19 [facility] Other (20 sources) Contrast media Propensity to adverse reactions Unknown [facility] Other (2 sources) Doxazosin; Translations: [doxazosin] Drug Allergy Unknown [facility] Other (20 sources) Sulfamethoxazole / Trimethoprim Drug Allergy 11-23-19 [facility] Other (20 sources) Doxazosin; Translations: [DOXAZOSIN] Drug Allergy 11-23-19 21 Unknown, Rash [facility] Repository (9 sources) Amoxicillin / Clavulanate; Translations: [Augmentin] Drug Allergy 11-16-19 16 Unknown [facility] Repository (1 source) amLODIPine Drug Allergy 04-25-20 14 [facility] Repository (1 source) Sulfamethoxazole / Trimethoprim Drug Allergy 03-09-20 13 [facility] Repository (2 sources) Sulfamethoxazole / Trimethoprim; [...] sources) Amoxicillin Drug Allergy 03-12-20 23 Unknown [facility] (20 sources) Doxazosin Drug Allergy 03-12-20 Unknown [facility] Healthcare (20 sources) Sulfamethoxazole; Translations: [SULFAMETHOXAZOLE] Allergy to substance 03-12-20 Unknown [facility] Healthcare (20 sources) Trimethoprim Drug Allergy 03-12-20 Unknown [facility] Healthcare (4 sources) Clavulanate; Translations: [clavulanic [...] coronary artery bypass graft , Atherosclerosis of [place] coronary artery of [place] heart without angina pectoris , Paroxysmal atrial [...] (LIPITOR) 80 mg tablet Indications: Atherosclerosis of [place] coronary artery of [place] heart without angina pectoris , H/O four [...] Start: 06-15-2024 take 1 tablet by enzo once daily End: 01-17-2024 take 1 tablet [...] Active docusate sodium 50 mg / sennosides, prison 8.6 mg oral tablet (5 sources) take 1 tablet by mouth every twelve hours Sennosides-Docusate Sodium 8.6-50 MG 1 tablet in the evening as needed Orally every 12 hours Active epoetin johnna-epbx 10166 UNT/ML Injectable Solution [Retacrit] (14 sources) Retacrit 77896 U NIT/ML as directed Injection Active ferrous [...] ( ) take 2 tablets by mo ut every twenty-four hours Liothyronine Sodium 5 MCG 2 tablets on an empty stomach Orally Once a day Active take 2 tablets by mo uth every twenty-four hours lisinopril 20 mg oral [...] 2024 10:37am take 1 tablet by enzo every twelve [...] For Her 50 + - Orally Active ndagwvdprwfm-avuw-unejoody-f olic acid (Centrum) chewable tablet (20 sources) multivitamin-iro y-xlxohtva-ttrtp acid (Centrum) chewable tablet Chew 1 tablet Daily Active multivitamin-iro u-ukjaooqd-mfwcy acid (Centrum) chewable tablet Chew 1 tablet [...] not crush, chew, or split. Active retacrit 36327 unit/ml solution (5 sources) Retacrit 06197 U NIT/ML as directed Injection Active Sennosides-Docusate [...] L Take by mouth daily. 0 Active Yazqjrfvmbwy-Usgq-Zpkrq Acid (Centrum) 18-400 mg-mcg Tablet (3 sources) Start: 10-09-2019 End: 06-15-2024 take 1 tablet by mouth once daily Mvyyuycffctl-Svng-Yyjhb Acid (Centrum) 18-400 mg-mcg Tablet Discontinued 1 [...] UNSPECIFIED] Onset: 3 Episodic Administrative/socia l admission (10 sources) Patient [...] angina pectoris; Translations: [Atherosclerotic heart disease of [place] coronary artery without angina pectoris] Onset: 1 [...] sources) Long-term 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; Translations: [[facility] (current) use of insulin] 07-13-2024 Episodic Other [...] Test Name Value Interpretation Reference Range Facility Orders Onlyon 06-17-2025 Orders Only [id number] Kylah Robin 1945 F Date Provider Department Center 06/17/2025 [id number], HISTORICAL CARD Hany Stacy Family History Family history unknown: Yes Normal [facility] Glucose (Bld) [Mass/Vol]on 0 06-14-2025 Glucose Blood, POC 349 mg/dL [facility] Laboratory - Hematology and Cell countson 06-14-2025 HbA1c (Bld) [Mass fraction] 7.6 % [facility] No Panel Informationon 06-14 [facility] Urine Cultureon 05-25-2025 Bacteria identified Cx Nom (U) ORGANISM: Escherichia coli (ESBL) (O:ESCCOLESBL) [place] Count >100,000 Aerobic AIDEN Charge (NMIC56) ------ [...] RESISTANT TO ALL B-LACTAM DRUGS. PERFORMED BY: [facility] [address] [place] [address] PATHOLOGIST GROUP INSURANCE SPECIAL AGENT CINTIA GLASGOW M.D. Normal [facility] Comment on above: Performed By: #### C UU #### [facility] [address] Urine Cultureon 04-21-2025 Bacteria identified Cx Nom (U) ORGANISM: Escherichia coli (ESBL) (O:ESCCOLESBL) [place] Count >100,000 Aerobic AIDEN Charge (NMIC56) ------ [...] RESISTANT TO ALL B-LACTAM DRUGS. PERFORMED BY: [facility] [address] [place] [address] PATHOLOGIST GROUP [employer] SPECIAL AGENT CINTIA GLASGOW M.D. Normal [facility] Comment on above: Performed By: #### C UU #### [address] Urine cultureOrdered By: Adal Lynne on 04-21-2025 Bacteria identified Cx Nom (U) Escherichia coli (ESBL) Abnormal [facility] No Panel Informationon 03-23 [facility] Healthcare Office Visiton 02-25-2025 Follow-up visit [id number] Kylah Robin 1945 F Date Provider Department Center 02/25/[address] [facility], STEFANO CARD Hany Stacy Family History Family history unknown: Yes Level of Service:47469 [place] OFFICE/OUTPATIENT ESTABLISHED MOD MDM 30 MIN Normal [facility] Glucose (Bld) [Mass/Vol]on 0 02-15-2025 Glucose Blood, POC 238 mg/dL [facility] Laboratory - Hematology and Cell countson 02-15-2025 HbA1c (Bld) [Mass fraction] 6.6 % [facility] No Panel Informationon 02-15 [facility] Erythrocyte distribution wid th Auto [...] 01-05-2025 Albumin [Mass/Vol] 3.3 g/dL Low 3.4-5.0 [facility] Calcium [Mass/Vol] 9.2 mg/dL 8.5-10.1 [facility] Chloride [Moles/Vol] 105 mmol/L 98-107 [facility] CO2 [Moles/Vol] 24.4 mmol/L 21.0-32.0 [facility] Creatinine [Mass/Vol] 1.89 mg/dL High 0.55-1.02 [facility] Ferritin [Mass/Vol] 499.0 ng/mL High 8.0-252.0 [facility] GFR/1.73 sq M.predicted MDRD (S/P/Bld) [Vol rate/Area] 31 mL/min/{1.73_m2} Low >=60 mL/min/1.73m 2 [facility] Glucose [Mass/Vol] 122 mg/dL High 74-106 [facility] Iron [Mass/Vol] 69.0 ug/dL 50.0-170.0 [facility] Magnesium [Mass/Vol] 1.9 mg/dL 1.8-2.4 [facility] Potassium [Moles/Vol] 4.7 mmol/L 3.5-5.1 [facility] Sodium [Moles/Vol] 141 mmol/L 136-145 [facility] Urate [Mass/Vol] 3.9 mg/dL 2.6-6.0 [facility] Urea nitrogen [Mass/Vol] 35.0 mg/dL High 7.0-18.0 [facility] Urea nitrogen/Creatinine [Mass ratio] 18.5 mg/mg [facility] Laboratory - Urinalysison Protein (U) [Mass/Vol] 108.9 mg/dL High <=11.9 F [facility] Leukocytes [#/volume] correc jean for nucleated [...] Vit D defi cient20-<30 ng/mL Vit D oavwppniycqf05-089 ng/mL Vit D sufficient>100 ng/mL Potential Toxicity Parathyroid Hormone (Intact) 73 pg/mL Abnormal 15-65 [facility] Comment on above: Performed at: [address] [id number] Director: Ashok Benson PhD, Phone: [phone] Phosphorus Level 3.8 mg/dL 2.6-4.7 [facility] Platelet mean volume Auto (B ld) [...] Medical Center Office Visiton 11-27-2024 Follow-up visit [id number] Kylah Robin 1945 F Date Provider Department Center 11/27/2024 [id number] YOON Family History Family history unknown: Yes Level of Service:19494 [place] OFFICE/OUTPATIENT ESTABLISHED MOD MDM 30 MIN Normal [facility] Glucose (Bld) [Mass/Vol]Orde red By: Maria Antonia Mo on 11-16-2024 Glucose Blood, POC 220 mg/dL [facility] Laboratory - Hematology and Cell countson 11-16-2024 HbA1c (Bld) [Mass fraction] 7 % [facility] No Panel InformationOrdered By: Maria Antonia Mo on 11-16-2024 [facility] Glucose (Bld) [Mass/Vol]Orde red By: Maria Antonia Mo on 07-13-2024 Glucose Blood, POC 180 mg/dL [facility] No Panel Informationon 05-25 Type of biopsy: [...] Specimen sent for: H&E Photo taken yes [facility] Contents First No Panel InformationOrdered By: Philomena Salter on 05-25-2024 [facility] POCT EKGon 01-17-2024 [facility] HEMOGRAM AND PLATELon 2022 Hematocrit (Bld) [Volume fraction] 28.8 % Critically low 36.0-48.0 [facility] Comment on above: Performed By: #### H H #### [facility] [address] [address] [address] Ember Teague Hemoglobin (Bld) [Mass/Vol] 9.6 g/dL Critically low 12.0-16.0 [facility] Comment on above: Performed By: #### H H #### [facility] [address] [place] [address] Dr. Ember Teague MCH (RBC) [Entitic mass] 30.7 pg Normal 26.7-34.0 [facility] Comment on above: Performed By: #### H H #### [facility] [address] [address] [address] Ember Teague MCHC (RBC) [Mass/Vol] 33.3 g/dL Normal 29.9-35.2 [facility] Comment on above: Performed By: #### H H #### [facility] [address] [address] [address] Ember Teague MCV (RBC) [Entitic vol] 92.0 fL Normal 81.0-99.0 [facility] Comment on above: Performed By: #### H H #### [facility] [address] [address] [address] Ember Teague PLT 214 103/ul Normal 150-450 [facility] Comment on above: Performed By: #### H H #### [facility] [address] [address] [address] Ember Teague RBC 3.13 106/ul Critically low 4.20-5.40 [facility] Comment on above: Performed By: #### H H #### [facility] [address] [place] [address] Dr. Ember Teague WBC 7.4 103/ul Normal 4.0-11.0 [facility] Comment on above: Performed By: #### H H #### [facility] [address] [place] [address] Dr. Ember Teague MAGNESIUMon 01-22-2023 Magnesium [Mass/Vol] 1.8 mg/dL Normal 1.8-2.4 [facility] Comment on above: Performed By: #### M G, RENAL #### [facility] [address] [place] [address] Dr. Ember Teague RENAL FUNCTION PANELon 01-22 Albumin [Mass/Vol] 3.6 g/dL Normal 3.4-5.[address] [facility] Comment on above: Performed By: #### M G, RENAL #### [facility] [address] [place] [address] Dr. Ember Teague Calcium [Mass/Vol] 9.7 mg/dL Normal 8.5-10.[address] [facility] Comment on above: Performed By: #### M G, RENAL #### [facility] [address] [place] [address] Dr. Ember Teague Chloride [Moles/Vol] 105 mmol/L Normal 98-107 [facility] Comment on above: Performed By: #### M G, RENAL #### [facility] [address] [address] [address] Ember Teague CO2 [Moles/Vol] 22.6 mmol/L Normal 21.0-32.0 [facility] Comment on above: Performed By: #### M G, RENAL #### [facility] [address] [address] [address] Ember Teague Creatinine [Mass/Vol] 2.18 mg/dL Critically high 0.55-1.02 [facility] Comment on above: Performed By: #### M G, RENAL #### [facility] [address] [address] [address] Ember Teague EGFR-AF SAMMARINESE 26 mL/min/1.73m2 Critically low >=60 [facility] Comment on above: Performed By: #### M G, RENAL #### [facility] [address] [address] [address] Ember Teague EGFR-NON AF SAMMARINESE 22 mL/min/1.73m2 Critically low >=60 [facility] Comment on above: Performed By: #### M G, RENAL #### [facility] [address] [address] [address] Ember Teague Glucose [Mass/Vol] 134 mg/dL Critically high 74-106 [facility] Comment on above: Performed By: #### M G, RENAL #### [facility] [address] [address] [address] Ember Teague Phosphate [Mass/Vol] 4.6 mg/dL Normal 2.6-4.7 [facility] Comment on above: Performed By: #### M G, RENAL #### [facility] [address] [address] [address] Ember Teague Potassium [Moles/Vol] 5.1 mmol/L Normal 3.5-5.1 [facility] Comment on above: Performed By: #### M G, RENAL #### [facility] [address] [address] [address] Ember Teague Sodium [Moles/Vol] 138 mmol/L Normal 136-145 [facility] [place] Comment on above: Performed By: #### M G, RENAL #### [facility] [address] [place], [place] [address] Dr. Ember Teague Urea nitrogen [Mass/Vol] 61.0 mg/dL Critically high 7.0-18.0 [facility] Comment on above: Performed By: #### M G, RENAL #### [facility] [address] [place], [place] [address] Dr. Ember Teague MG MAMM SCREEN 3D MAY CADon 12-17-2022 MG MAMM SCREEN 3D MAY CAD Patient: KYLAH ROBIN Exam Date: 12/17/2022 : 1945 Gender:F Ordering : DR DHRUV RUBI . Admission #: [id number] Family : Order #: [id number] CLICK HERE TO VIEW EXAM RADIOLOGY REPORT [...] lung cancer at age 61. LOCATION: [facility] BREAST COMPOSITION: Scattered areas fibroglandular density. [...] Aparicio MD on 12/17/2022 at 11:59 Normal [facility] FERRITINon 12-10-2022 Ferritin [Mass/Vol] 681.0 ng/mL Critically high 8.0-252.0 [facility] Comment on above: Performed By: #### P THINT #### [facility] [address] [place] [address] Dr. Ember Teague HEMOGRAM AND PLATELon 2022 Hematocrit (Bld) [Volume fraction] 27.1 % Critically low 36.0-48.0 [facility] Comment on above: Performed By: #### C VDTBH #### [facility] [address] [place] [address] Dr. Ember Teague Hemoglobin (Bld) [Mass/Vol] 9.7 g/dL Critically low 12.0-16.0 [facility] Comment on above: Performed By: #### C VDTBH #### [facility] [address] [place] [address] Dr. Ember Teague MCH (RBC) [Entitic mass] 31.4 pg Normal 26.7-34.0 [facility] Comment on above: Performed By: #### C VDTBH #### [facility] [address] [place] [address] Dr. Ember Teague MCHC (RBC) [Mass/Vol] 35.8 g/dL Critically high 29.9-35.2 [facility] Comment on above: Performed By: #### C VDTBH #### [facility] [address] [place] [address] Dr. Ember Teague MCV (RBC) [Entitic vol] 87.7 fL Normal 81.0-99.0 [facility] Comment on above: Performed By: #### C VDTBH #### [facility] [address] [place] [address] Dr. Ember Teague PLT 218 103/ul Normal 150-450 [facility] Comment on above: Performed By: #### C VDTBH #### [facility] [address] [place] [address] Dr. Ember Teague RBC 3.09 106/ul Critically low 4.20-5.40 [facility] Comment on above: Performed By: #### C VDTBH #### [facility] [address] [place] [address] Dr. Ember Teague WBC 6.6 103/ul Normal 4.0-11.0 [facility] Comment on above: Performed By: #### C VDTBH #### [facility] [address] [place] [address] Dr. Ember Teague IRON AND TIBCon 12-10-2022 % SATURATION 30.2 % Normal [facility] Comment on above: Performed By: #### P THINT #### [facility] [address] [place] [address] Dr. Ember Teague Iron [Mass/Vol] 84.0 ug/dL Normal 50.0-170.0 [facility] Comment on above: Performed By: #### P THINT #### [facility] [address] [place] [address] Dr. Ember Teague TIBC DIRECT 278.0 ug/dL Normal 250.0-450.0 [facility] Comment on above: Performed By: #### P THINT #### [facility] [address] [place] [address] Dr. Ember Teague XR FOOT MAY MIN [...] BENI APARICIO Date: 2022-11-20 14:03 Normal [facility] HEMOGRAM AND PLATELon 2022 Hematocrit (Bld) [Volume fraction] 27.7 % Critically low 36.0-48.0 [facility] Comment on above: Performed By: #### R ENAL #### [facility] [address] [place] [address] Dr. Ember Teague Hemoglobin (Bld) [Mass/Vol] 10.0 g/dL Critically low 12.0-16.0 [facility] Comment on above: Performed By: #### R ENAL #### [facility] [address] [place] [address] Dr. Ember Teague MCH (RBC) [Entitic mass] 31.6 pg Normal 26.7-34.0 [facility] Comment on above: Performed By: #### R ENAL #### [facility] [address] [place] [address] Dr. Ember Teague MCHC (RBC) [Mass/Vol] 36.1 g/dL Critically high 29.9-35.2 [facility] Comment on above: Performed By: #### R ENAL #### [facility] [address] [place] [address] Dr. Ember Teague MCV (RBC) [Entitic vol] 87.7 fL Normal 81.0-99.0 [facility] Comment on above: Performed By: #### R ENAL #### [facility] [address] [place] [address] Dr. Ember Teague PLT 182 103/ul Normal 150-450 [facility] Comment on above: Performed By: #### R ENAL #### [facility] [address] [place] [address] Dr. Ember Teague RBC 3.16 106/ul Critically low 4.20-5.40 [facility] Comment on above: Performed By: #### R ENAL #### [facility] [address] [place] [address] Dr. Ember Teague WBC 6.8 103/ul Normal 4.0-11.0 [facility] Comment on above: Performed By: #### R ENAL #### [facility] [address] [place] [address] Dr. Ember Teague PROF CHEM 8 (BAS METB)on Anion gap [Moles/Vol] 17.6 mmol/L Normal [facility] Comment on above: Performed By: #### C VDTBH #### [facility] [address] [address] [address] Ember Teague Calcium [Mass/Vol] 9.0 mg/dL Normal 8.5-10.1 [facility] [place] Comment on above: Performed By: #### C VDTBH #### [facility] [address] [address] [address] Ember Teague Chloride [Moles/Vol] 104 mmol/L Normal 98-107 [facility] Comment on above: Performed By: #### C VDTBH #### [facility] [address] [place] [address] Dr. Ember Teague CO2 [Moles/Vol] 22.2 mmol/L Normal 21.0-32.0 [facility] Comment on above: Performed By: #### C VDTBH #### [facility] [address] [place] [address] Dr. Ember Teague Creatinine [Mass/Vol] 2.03 mg/dL Critically high 0.55-1.02 [facility] Comment on above: Performed By: #### C VDTBH #### [facility] [address] [place] [address] Dr. Ember Teague EGFR-AF SAMMARINESE 29 mL/min/1.73m2 Critically low >=60 [facility] Comment on above: Performed By: #### C VDTBH #### [facility] [address] [place] [address] Dr. Ember Teague EGFR-NON AF SAMMARINESE 24 mL/min/1.73m2 Critically low >=60 [facility] Comment on above: Performed By: #### C VDTBH #### [facility] [address] [place] [address] Dr. Ember Teague Glucose [Mass/Vol] 154 mg/dL Critically high 74-106 [facility] Comment on above: Performed By: #### C VDTBH #### [facility] [address] [place] [address] Dr. Ember Teague Potassium [Moles/Vol] 4.8 mmol/L Normal 3.5-5.1 [facility] Comment on above: Performed By: #### C VDTBH #### [facility] [address] [address] [address] Ember Teague Sodium [Moles/Vol] 139 mmol/L Normal 136-[address] [facility] Comment on above: Performed By: #### C VDTBH #### [facility] [address] [address] [address] Ember Teague Urea nitrogen [Mass/Vol] 43.0 mg/dL Critically high 7.0-18.0 [facility] Comment on above: Performed By: #### C VDTBH #### [facility] [address] [address] [address] Ember Teague Urea nitrogen/Creatinine [Mass ratio] 21.2 mg/mg Normal [facility] Comment on above: Performed By: #### C VDTBH #### [facility] [address] [place] [address] Dr. Ember Teague CULTURE SPUTUMon 10-24-2022 CULTURE SPUTUM Culture Observations: Beta lactamase positive Isolate 1 Haemophilus influenzae Moderate growth of Normal [facility] Comment on above: Performed By: #### R ENAL #### [facility] [address] [place] [address] Dr. Ember Teague SPUTUM GRAM STAINon 10-24-19 23 COMMENTS Normal [facility] Comment on above: Performed By: #### R ENAL #### [facility] [address] [address] [address] Ember Teague DIPHTHEROIDS Normal [facility] Comment on above: Performed By: #### R ENAL #### [facility] [address] [address] [address] Ember Teague EPITHELIALS >25 Normal [facility] Comment on above: Performed By: #### R ENAL #### [facility] [address] [address] [address] Ember Teague FUNGAL ELEMENTS Normal [facility] Comment on above: Performed By: #### R ENAL #### [facility] [address] [address] [address] Ember Teague GRAM NEG BACILLI Normal [facility] Comment on above: Performed By: #### R ENAL #### [facility] [address] [address] [address] Ember Teague GRAM NEG DIPPLOCOCCI FEW Normal [facility] Comment on above: Performed By: #### R ENAL #### [facility] [address] [address] [address] Ember Teague GRAM POS BACILLI FEW Normal [facility] Comment on above: Performed By: #### R ENAL #### [facility] [address] [address] [address] Ember Teague GRAM POSITIVE COCCI MANY Normal [facility] Comment on above: Performed By: #### R ENAL #### [facility] [address] [address] [address] Ember Teague WBC (Bld) [#/Vol] 10*3/uL Normal [facility] Comment on above: Performed By: #### R ENAL #### [facility] [address] [address] [address] Ember Teague XR CHEST 2 Von [...] ANGELINA BRISENO Date: 2022-10-24 16:22 Normal [facility] FERRITINon 09-18-2022 Ferritin [Mass/Vol] 612.0 ng/mL Critically high 8.0-252.0 [facility] Comment on above: Performed By: #### F ERR, FETIBC #### [facility] [address] [place] [address] Dr. Ember Teague HEMOGRAM AND PLATELon 2021 Hematocrit (Bld) [Volume fraction] 28.1 % Critically low 36.0-48.0 [facility] Comment on above: Performed By: #### C BC #### [facility] [address] [place] [address] Dr. Ember Teague Hemoglobin (Bld) [Mass/Vol] 9.7 g/dL Critically low 12.0-16.0 [facility] Comment on above: Performed By: #### C BC #### [facility] [address] [place] [address] Dr. Ember Teague MCH (RBC) [Entitic mass] 31.3 pg Normal 26.7-34.0 [facility] Comment on above: Performed By: #### C BC #### [facility] [address] [place] [address] Dr. Ember Teague MCHC (RBC) [Mass/Vol] 34.5 g/dL Normal 29.9-35.2 [facility] Comment on above: Performed By: #### C BC #### [facility] [address] [place] [address] Dr. Ember Teague MCV (RBC) [Entitic vol] 90.6 fL Normal 81.0-99.0 [facility] Comment on above: Performed By: #### C BC #### [facility] [address] [place] [address] Dr. Ember Teague PLT 183 103/ul Normal 150-450 [facility] Comment on above: Performed By: #### C BC #### [facility] [address] [place] [address] Dr. Ember Teague RBC 3.10 106/ul Critically low 4.20-5.40 [facility] Comment on above: Performed By: #### C BC #### [facility] [address] [place] [address] Dr. Ember Teague WBC 7.2 103/ul Normal 4.0-11.0 [facility] Comment on above: Performed By: #### C BC #### [facility] [address] [place] [address] Dr. Ember Teague IRON AND TIBCon 09-18-2022 % SATURATION 36.0 % Normal [facility] Comment on above: Performed By: #### F ERR, FETIBC #### [facility] [address] [address] [address] Ember Teague Iron [Mass/Vol] 77.0 ug/dL Normal 50.0-170.0 [facility] Comment on above: Performed By: #### F ERR, FETIBC #### [facility] [address] [address] [address] Ember Teague TIBC DIRECT 214.0 ug/dL Critically low 250.0-450.0 [facility] Comment on above: Performed By: #### F ERR, FETIBC #### [facility] [address] [address] [address] Ember Teague RENAL FUNCTION PANELon 09-18 Albumin [Mass/Vol] 3.7 g/dL Normal 3.4-5.0 [facility] Comment on above: Performed By: #### R ENAL #### [facility] [address] [place] [address] Dr. Ember Teague Calcium [Mass/Vol] 9.5 mg/dL Normal 8.5-10.[address] [facility] Comment on above: Performed By: #### R ENAL #### [facility] [address] [place] [address] Dr. Ember Teague Chloride [Moles/Vol] 103 mmol/L Normal 98-107 [facility] Comment on above: Performed By: #### R ENAL #### [facility] [address] [place] [address] Dr. Ember Teague CO2 [Moles/Vol] 21.1 mmol/L Normal 21.0-32.0 [facility] Comment on above: Performed By: #### R ENAL #### [facility] [address] [place] [address] Dr. Ember Teague Creatinine [Mass/Vol] 1.85 mg/dL Critically high 0.55-1.02 [facility] Comment on above: Performed By: #### R ENAL #### [facility] [address] [place] [address] Dr. Ember Teague EGFR-AF SAMMARINESE 32 mL/min/1.73m2 Critically low >=60 [facility] Comment on above: Performed By: #### R ENAL #### [facility] [address] [address] [address] Ember Teague EGFR-NON AF SAMMARINESE 26 mL/min/1.73m2 Critically low >=60 [facility] Comment on above: Performed By: #### R ENAL #### [facility] [address] [address] [address] Ember Teague Glucose [Mass/Vol] 183 mg/dL Critically high 74-106 [facility] Comment on above: Performed By: #### R ENAL #### [facility] [address] [place] [address] Dr. Ember Teague Phosphate [Mass/Vol] 3.7 mg/dL Normal 2.6-4.7 [facility] Comment on above: Performed By: #### R ENAL #### [facility] [address] [address] [address] Ember Teague Potassium [Moles/Vol] 4.9 mmol/L Normal 3.5-5.1 [facility] Comment on above: Performed By: #### R ENAL #### [facility] [address] [place] [address] Dr. Ember Teague Sodium [Moles/Vol] 138 mmol/L Normal 136-145 [facility] Comment on above: Performed By: #### R ENAL #### [facility] [address] [address] [address] Ember Teague Urea nitrogen [Mass/Vol] 40.0 mg/dL Critically high 7.0-18.0 [facility] Comment on above: Performed By: #### R ENAL #### [facility] [address] [place] [address] Dr. Ember Teague CULTURE URINEon 09-15-2022 CULTURE [...] F Trimethoprim/Sulfam ethoxazole <=20 S F Normal [facility] Comment on above: Performed By: #### R ENAL #### [facility] [address] [place] [address] Dr. Ember Teague BNPon 09-11-2022 Natriuretic peptide B (Bld) [Mass/Vol] 408.0 pg/mL Normal <=1,800.0 [facility] Comment on above: Performed By: #### P THINT #### [facility] [address] [place] [address] Dr. Ember Teague CBC AUTO DIFFon 09-11-2022 BASO # 0.0 103/ul Normal 0.0-0.1 [facility] Comment on above: Performed By: #### C BC #### [facility] [address] [place] [address] Dr. Ember Teague Basophils/100 WBC (Bld) 0.3 % Normal 0.2-2.0 [facility] Comment on above: Performed By: #### C BC #### [facility] [address] [place] [address] Dr. Ember Teague EO # 0.1 103/ul Normal 0.0-0.7 [facility] Comment on above: Performed By: #### C BC #### [facility] [address] [place] [address] Dr. Ember Teague Eosinophils/100 WBC (Bld) 1.9 % Normal 0.9-7.0 [facility] Comment on above: Performed By: #### C BC #### [facility] [address] [place] [address] Dr. Ember Teague Erythrocyte distribution width (RBC) [Ratio] 15.2 % Critically high 11.0-15.0 [facility] Comment on above: Performed By: #### C BC #### [facility] [address] [place] [address] Dr. Ember Teague Hematocrit (Bld) [Volume fraction] 26.6 % Critically low 36.0-48.0 [facility] Comment on above: Performed By: #### C BC #### [facility] [address] [place] [address] Dr. Ember Teague Hemoglobin (Bld) [Mass/Vol] 9.0 g/dL Critically low 12.0-16.0 [facility] Comment on above: Performed By: #### C BC #### [facility] [address] [place] [address] Dr. Ember Teague IG # 0.02 10e3/ul Normal 0.00-0.03 [facility] Comment on above: Performed By: #### C BC #### [facility] [address] [place] [address] Dr. Ember Teague IG % 0.3 % Normal 0.0-0.5 [facility] Comment on above: Performed By: #### C BC #### [facility] [address] [place] [address] Dr. Ember Teague LYMPH # 1.9 103/ul Normal 1.2-3.8 [facility] Comment on above: Performed By: #### C BC #### [facility] [address] [place] [address] Dr. Ember Teague Lymphocytes/100 WBC (Bld) 32.4 % Normal 20.5-60.0 [facility] Comment on above: Performed By: #### C BC #### [facility] [address] [place] [address] Dr. Ember Teague MANUAL DIFF REQ NO Normal [facility] Comment on above: Performed By: #### C BC #### [facility] [address] [place] [address] Dr. Ember Teague MCH (RBC) [Entitic mass] 31.1 pg Normal 26.7-34.0 [facility] Comment on above: Performed By: #### C BC #### [facility] [address] [address] [address] Ember Teague MCHC (RBC) [Mass/Vol] 33.8 g/dL Normal 29.9-35.2 [facility] Comment on above: Performed By: #### C BC #### [facility] [address] [address] [address] Ember Teague MCV (RBC) [Entitic vol] 92.0 fL Normal 81.0-99.0 [facility] Comment on above: Performed By: #### C BC #### [facility] [address] [place] [address] Dr. Ember Teague MONO # 0.6 103/ul Normal 0.3-0.8 [facility] Comment on above: Performed By: #### C BC #### [facility] [address] [place] [address] Dr. Ember Teague Monocytes/100 WBC (Bld) 10.0 % Normal 1.7-12.0 [facility] Comment on above: Performed By: #### C BC #### [facility] [address] [place] [address] Dr. Ember Teague NEUT # 3.2 103/ul Normal 1.4-6.5 [facility] Comment on above: Performed By: #### C BC #### [facility] [address] [place] [address] Dr. Ember Teague Neutrophils/100 WBC (Bld) 55.1 % Normal 43.0-75.0 [facility] Comment on above: Performed By: #### C BC #### [facility] [address] [place] [address] Dr. Ember Teague Platelet mean volume (Bld) [Entitic vol] 9.4 fL Critically low 9.5-13.5 [facility] Comment on above: Performed By: #### C BC #### [facility] [address] [place] [address] Dr. Ember Teague PLT 196 103/ul Normal 150-450 [facility] Comment on above: Performed By: #### C BC #### [facility] [address] [place] [address] Dr. Ember Teague RBC 2.89 106/ul Critically low 4.20-5.40 [facility] Comment on above: Performed By: #### C BC #### [facility] [address] [place] [address] Dr. Ember Teague WBC 5.8 103/ul Normal 4.0-11.0 [facility] Comment on above: Performed By: #### C BC #### [facility] [address] [place] [address] Dr. Ember Teague PROF 14(COMP METB)on 022 Albumin [Mass/Vol] 3.7 g/dL Normal 3.4-5.0 [facility] Comment on above: Performed By: #### P THINT #### [facility] [address] [place] [address] Dr. Ember Teague Albumin/Globulin [Mass ratio] 1.0 {ratio} Normal [facility] Comment on above: Performed By: #### P THINT #### [facility] [address] [place] [address] Dr. Ember Teague ALP [Catalytic activity/Vol] 79 U/L Normal 46-116 [facility] Comment on above: Performed By: #### P THINT #### [facility] [address] [place] [address] Dr. Ember Teague ALT [Catalytic activity/Vol] 24 U/L Normal 14-59 [facility] Comment on above: Performed By: #### P THINT #### [facility] [address] [place] [address] Dr. Ember Teague Anion gap [Moles/Vol] 12.8 mmol/L Normal [facility] Comment on above: Performed By: #### P THINT #### [facility] [address] [place] [address] Dr. Ember Teague AST [Catalytic activity/Vol] 17 U/L Normal 15-37 [facility] Comment on above: Performed By: #### P THINT #### [facility] [address] [place], [place] [id number] Dr. Ember Teague Bilirubin [Mass/Vol] 0.5 mg/dL Normal 0.2-1.0 [facility] Comment on above: Performed By: #### P THINT #### [facility] [address] [place] [address] Dr. Ember Teague Calcium [Mass/Vol] 9.4 mg/dL Normal 8.5-10.1 [facility] Comment on above: Performed By: #### P THINT #### [facility] [address] [address] [address] Ember Teague Chloride [Moles/Vol] 101 mmol/L Normal 98-107 [facility] Comment on above: Performed By: #### P THINT #### [facility] [address] [place] [address] Dr. Ember Teague CO2 [Moles/Vol] 24.3 mmol/L Normal 21.0-32.0 [facility] Comment on above: Performed By: #### P THINT #### [facility] [address] [place] [address] Dr. Ember Teague Creatinine [Mass/Vol] 2.84 mg/dL Critically high 0.55-1.02 [facility] Comment on above: Performed By: #### P THINT #### [facility] [address] [place] [address] Dr. Ember Teague EGFR-AF SAMMARINESE 20 mL/min/1.73m2 Critically low >=60 [facility] Comment on above: Performed By: #### P THINT #### [facility] [address] [place] [address] Dr. Ember Teague EGFR-NON AF SAMMARINESE 16 mL/min/1.73m2 Critically low >=60 [facility] Comment on above: Performed By: #### P THINT #### [facility] [address] [place] [address] Dr. Ember Teague Globulin (S) [Mass/Vol] 3.7 g/dL Normal [facility] Comment on above: Performed By: #### P THINT #### [facility] [address] [address] [address] Ember Teague Glucose [Mass/Vol] 174 mg/dL Critically high 74-106 [facility] Comment on above: Performed By: #### P THINT #### [facility] [address] [address] [address] Ember Teague Potassium [Moles/Vol] 5.1 mmol/L Normal 3.5-5.1 [facility] Comment on above: Performed By: #### P THINT #### [facility] [address] [address] [address] Ember Teague Protein [Mass/Vol] 7.4 g/dL Normal 6.4-8.2 [facility] Comment on above: Performed By: #### P THINT #### [facility] [address] [place] [address] Dr. Ember Teague Sodium [Moles/Vol] 133 mmol/L Critically low 136-145 [facility] Comment on above: Performed By: #### P THINT #### [facility] [address] [place] [address] Dr. Ember Teague Urea nitrogen [Mass/Vol] 68.0 mg/dL Critically high 7.0-18.0 [facility] Comment on above: Performed By: #### P THINT #### [facility] [address] [place] [address] Dr. Ember Teague Urea nitrogen/Creatinine [Mass ratio] 23.9 mg/mg Normal [facility] Comment on above: Performed By: #### P THINT #### [facility] [address] [place] [address] Dr. Ember Teague TROPONIN, HIGH SENSITIVITYon 09-11-2022 HSTROP 9.1 pg/mL Normal 4.0-51.3 [facility] Comment on above: Result Comment: CUT- OFF POINTS HAVE BEEN ESTABLISHED BASED ON THE FOURTH UNIVERSAL DEFINITIONS OF MYOCARDIAL INFARCTION. THE UPPER REFERENCE LIMIT (URL) OF TROPONIN, DEFINED THE 99TH PERCENTILE OF cTnI DISTRIBUTION IN A REFERENCE POPULATION, HAS BEEN CONFIRMED THE DECISION THRESHOLD FOR HI DIAGNOSIS. Performed By: #### P THINT #### [facility] [address] [address] [address] Ember Teague UA RANDOM W/MICROSCOPICon BACTERIA NONE SEEN Normal NONE SEEN [facility] Comment on above: Performed By: #### C VDTBH #### [facility] [address] [address] [address] Ember Teague Bilirubin Ql (U) Negative Normal NEGATIVE [facility] Comment on above: Performed By: #### C VDTBH #### [facility] [address] [address] [address] Ember Teague CAST NONE SEEN Normal NONE SEEN [facility] Comment on above: Performed By: #### C VDTBH #### [facility] [address] [place] [address] Dr. Ember Teague Clarity (U) CLEAR Normal CLEAR [facility] Comment on above: Performed By: #### C VDTBH #### [facility] [address] [place] [address] Dr. Ember Teague Color (U) LT. YELLOW Normal YELLOW [facility] Comment on above: Performed By: #### C VDTBH #### [facility] [address] [place] [address] Dr. Ember Teague Crystals LM Nom (Urine sed) NONE SEEN Normal NONE SEEN [facility] Comment on above: Performed By: #### C VDTBH #### [facility] [address] [place] [address] Dr. Ember Teague Epithelial cells LM Ql (Urine sed) FEW Abnormal NONE SEEN /RARE [facility] Comment on above: Performed By: #### C VDTBH #### [facility] [address] [place] [address] Dr. Ember Teague Glucose Ql (U) Negative Normal NEGATIVE [facility] Comment on above: Performed By: #### C VDTBH #### [facility] [address] [place] [address] Dr. Ember Teague Hemoglobin Ql (U) Negative Normal NEGATIVE [facility] Comment on above: Performed By: #### C VDTBH #### [facility] [address] [place] [address] Dr. Ember Teague Ketones Ql (U) Negative Normal NEGATIVE [facility] Comment on above: Performed By: #### C VDTBH #### [facility] [address] [place] [address] Dr. Ember Teague LEUKOCYTES Negative Normal NEGATIVE [facility] Comment on above: Performed By: #### C VDTBH #### [facility] [address] [place] [address] Dr. Ember Teague MUCOUS NONE SEEN Normal NONE SEEN [facility] Comment on above: Performed By: #### C VDTBH #### [facility] [address] [place] [address] Dr. Ember Teague Nitrite Ql (U) Negative Normal NEGATIVE [facility] Comment on above: Performed By: #### C VDTBH #### [facility] [address] [place] [address] Dr. Ember Teague pH (U) 5.5 [pH] Normal 5-9 [facility] Comment on above: Performed By: #### C VDTBH #### [facility] [address] [place] [address] Dr. Ember Teague RBC NONE SEEN Abnormal 0-2 [facility] Comment on above: Performed By: #### C VDTBH #### [facility] [address] [place] [address] Dr. Ember Teague SPEC GRAVITY 1.010 Normal 1.005-<=1.025 [facility] Comment on above: Performed By: #### C VDTBH #### [facility] [address] [place] [address] Dr. Ember Teague UA PROTEIN Negative Normal NEGATIVE/ TRACE [facility] Comment on above: Performed By: #### C VDTBH #### [facility] [address] [place] [address] Dr. Ember Teague Urobilinogen Qn (U) 0.2 {Esau'U}/dL Normal 0.2 - 1. 0 [facility] Comment on above: Performed By: #### C VDTBH #### [facility] [address] [place] [address] Dr. Ember Teague WBC NONE SEEN Normal NONE SEEN [facility] Comment on above: Performed By: #### C VDTB #### [facility] [address] [place] [address] Dr. Ember Teague CBC AUTO DIFFon 08-13-2022 BASO # 0.0 103/ul Normal 0.0-0.1 [facility] Comment on above: Performed By: #### C BC #### [facility] [address] [place] [address] Dr. Ember Teague Basophils/100 WBC (Bld) 0.3 % Normal 0.2-2.0 [facility] Comment on above: Performed By: #### C BC #### [facility] [address] [place] [address] Dr. Ember Teague EO # 0.2 103/ul Normal 0.0-0.7 [facility] Comment on above: Performed By: #### C BC #### [facility] [address] [place] [address] Dr. Ember Teague Eosinophils/100 WBC (Bld) 3.7 % Normal 0.9-7.0 [facility] Comment on above: Performed By: #### C BC #### [facility] [address] [place] [address] Dr. Ember Teague Erythrocyte distribution width (RBC) [Ratio] 15.0 % Normal 11.0-15.0 [facility] Comment on above: Performed By: #### C BC #### [facility] [address] [place] [address] Dr. Ember Teague Hematocrit (Bld) [Volume fraction] 27.9 % Critically low 36.0-48.0 [facility] Comment on above: Performed By: #### C BC #### [facility] [address] [place] [address] Dr. Ember Teague Hemoglobin (Bld) [Mass/Vol] 9.7 g/dL Critically low 12.0-16.0 [facility] Comment on above: Performed By: #### C BC #### [facility] [address] [place] [address] Dr. Ember eTague IG # 0.01 10e3/ul Normal 0.00-0.03 [facility] Comment on above: Performed By: #### C BC #### [facility] [address] [place] [address] Dr. Ember Teague IG % 0.2 % Normal 0.0-0.5 [facility] Comment on above: Performed By: #### C BC #### [facility] [address] [place] [address] Dr. Ember Teague LYMPH # 1.9 103/ul Normal 1.2-3.8 [facility] Comment on above: Performed By: #### C BC #### [facility] [address] [place] [address] Dr. Ember Teague Lymphocytes/100 WBC (Bld) 32.2 % Normal 20.5-60.0 [facility] Comment on above: Performed By: #### C BC #### [facility] [address] [place] [address] Dr. Ember Teague MANUAL DIFF REQ NO Normal [facility] Comment on above: Performed By: #### C BC #### [facility] [address] [place] [address] Dr. Ember Teague MCH (RBC) [Entitic mass] 31.4 pg Normal 26.7-34.0 [facility] Comment on above: Performed By: #### C BC #### [facility] [address] [place] [address] Dr. Ember Teague MCHC (RBC) [Mass/Vol] 34.8 g/dL Normal 29.9-35.2 [facility] Comment on above: Performed By: #### C BC #### [facility] [address] [place] [address] Dr. Ember Teague MCV (RBC) [Entitic vol] 90.3 fL Normal 81.0-99.0 [facility] Comment on above: Performed By: #### C BC #### [facility] [address] [place] [address] Dr. Ember Teague MONO # 0.6 103/ul Normal 0.3-0.8 [facility] Comment on above: Performed By: #### C BC #### [facility] [address] [address] [address] Ember Teague Monocytes/100 WBC (Bld) 9.8 % Normal 1.7-12.0 [facility] Comment on above: Performed By: #### C BC #### [facility] [address] [place] [address] Dr. Ember Teague NEUT # 3.2 103/ul Normal 1.4-6.5 [facility] Comment on above: Performed By: #### C BC #### [facility] [address] [place] [address] Dr. Ember Teague Neutrophils/100 WBC (Bld) 53.8 % Normal 43.0-75.0 [facility] Comment on above: Performed By: #### C BC #### [facility] [address] [place] [address] Dr. Ember Teague Platelet mean volume (Bld) [Entitic vol] 10.0 fL Normal 9.5-13.5 [facility] Comment on above: Performed By: #### C BC #### [facility] [address] [place] [address] Dr. Ember Teague PLT 194 103/ul Normal 150-450 [facility] Comment on above: Performed By: #### C BC #### [facility] [address] [place] [address] Dr. Ember Teague RBC 3.09 106/ul Critically low 4.20-5.40 [facility] Comment on above: Performed By: #### C BC #### [facility] [address] [place] [address] Dr. Ember Teague WBC 6.0 103/ul Normal 4.0-11.0 [facility] Comment on above: Performed By: #### C BC #### [facility] [address] [place] [address] Dr. Ember Teague PTH INTACTon 06-26-2022 PTH, Intact 39 pg/mL Normal 15-65 [facility] Comment on above: Performed By: #### P THINT #### [facility] [address] [place] [address] Dr. Ember Teague CBC AUTO DIFFon 06-25-2022 BASO # 0.1 103/ul Normal 0.0-0.1 [facility] Comment on above: Performed By: #### C VDTBH #### [facility] [address] [place] [address] Dr. Ember Teague Basophils/100 WBC (Bld) 0.6 % Normal 0.2-2.0 [facility] Comment on above: Performed By: #### C VDTBH #### [facility] [address] [place] [address] Dr. Ember Teague EO # 0.2 103/ul Normal 0.0-0.7 [facility] Comment on above: Performed By: #### C VDTBH #### [facility] [address] [place] [address] Dr. Ember Teague Eosinophils/100 WBC (Bld) 3.0 % Normal 0.9-7.0 [facility] Comment on above: Performed By: #### C VDTBH #### [facility] [address] [place] [address] Dr. Ember Teague Erythrocyte distribution width (RBC) [Ratio] 14.2 % Normal 11.0-15.0 [facility] Comment on above: Performed By: #### C VDTBH #### [facility] [address] [place] [address] Dr. Ember Teague Hematocrit (Bld) [Volume fraction] 30.9 % Critically low 36.0-48.0 [facility] Comment on above: Performed By: #### C VDTBH #### [facility] [address] [place] [address] Dr. Ember Teague Hemoglobin (Bld) [Mass/Vol] 10.6 g/dL Critically low 12.0-16.0 [facility] Comment on above: Performed By: #### C VDTBH #### [facility] [address] [address] [address] Ember Teague IG # 0.04 10e3/ul Critically high 0.00-0.03 [facility] Comment on above: Performed By: #### C VDTBH #### [facility] [address] [place] [address] Dr. Ember Teague IG % 0.5 % Normal 0.0-0.5 [facility] Comment on above: Performed By: #### C VDTBH #### [facility] [address] [place] [address] Dr. Ember Teague LYMPH # 2.2 103/ul Normal 1.2-3.8 [facility] Comment on above: Performed By: #### C VDTBH #### [facility] [address] [place] [address] Dr. Ember Teague Lymphocytes/100 WBC (Bld) 27.0 % Normal 20.5-60.0 [facility] Comment on above: Performed By: #### C VDTBH #### [facility] [address] [place] [address] Dr. Ember Teague MANUAL DIFF REQ NO Normal [facility] Comment on above: Performed By: #### C VDTBH #### [facility] [address] [place] [address] Dr. Ember Teague MCH (RBC) [Entitic mass] 31.2 pg Normal 26.7-34.0 [facility] Comment on above: Performed By: #### C VDTBH #### [facility] [address] [place] [address] Dr. Ember Teague MCHC (RBC) [Mass/Vol] 34.3 g/dL Normal 29.9-35.2 [facility] Comment on above: Performed By: #### C VDTBH #### [facility] [address] [place] [address] Dr. Ember Teague MCV (RBC) [Entitic vol] 90.9 fL Normal 81.0-99.0 [facility] Comment on above: Performed By: #### C VDTBH #### [facility] [address] [address] [address] Ember Teague MONO # 0.7 103/ul Normal 0.3-0.8 [facility] Comment on above: Performed By: #### C VDTBH #### [facility] [address] [address] [address] Ember Teague Monocytes/100 WBC (Bld) 9.2 % Normal 1.7-12.0 [facility] Comment on above: Performed By: #### C VDTBH #### [facility] [address] [address] [address] Ember Teague NEUT # 4.8 103/ul Normal 1.4-6.5 [facility] Comment on above: Performed By: #### C VDTBH #### [facility] [address] [place] [address] Dr. Ember Teague Neutrophils/100 WBC (Bld) 59.7 % Normal 43.0-75.0 [facility] Comment on above: Performed By: #### C VDTBH #### [facility] [address] [place] [address] Dr. Ember Teague Platelet mean volume (Bld) [Entitic vol] 9.3 fL Critically low 9.5-13.5 [facility] Comment on above: Performed By: #### C VDTBH #### [facility] [address] [place] [address] Dr. Ember Teague PLT 227 103/ul Normal 150-450 [facility] Comment on above: Performed By: #### C VDTBH #### [facility] [address] [place] [address] Dr. Ember Teague RBC 3.40 106/ul Critically low 4.20-5.40 [facility] Comment on above: Performed By: #### C VDTBH #### [facility] [address] [place] [address] Dr. Ember Teague WBC 8.0 103/ul Normal 4.0-11.0 [facility] Comment on above: Performed By: #### C VDTB #### [facility] [address] [place], [place] [address] Dr. Ember Teague MRI LSPINE WO CONon [...] YANET HUERTA Date: 2022-06-25 08:45 Normal [facility] RENAL FUNCTION PANELon 06-25 Albumin [Mass/Vol] 3.9 g/dL Normal 3.4-5.0 [facility] [place] Comment on above: Performed By: #### P THINT #### [facility] [address] [place], [place] [address] Dr. Ember Teague Calcium [Mass/Vol] 9.5 mg/dL Normal 8.5-10.1 [facility] [place] Comment on above: Performed By: #### P THINT #### [facility] [address] [address] [address] Ember Teague Chloride [Moles/Vol] 102 mmol/L Normal 98-107 [facility] Comment on above: Performed By: #### P THINT #### [facility] [address] [address] [address] Ember Teague CO2 [Moles/Vol] 23.8 mmol/L Normal 21.0-32.0 [facility] Comment on above: Performed By: #### P THINT #### [facility] [address] [place] [address] Dr. Ember Teague Creatinine [Mass/Vol] 1.75 mg/dL Critically high 0.55-1.02 [facility] Comment on above: Performed By: #### P THINT #### [facility] [address] [place] [address] Dr. Ember Teague EGFR-AF SAMMARINESE 34 mL/min/1.73m2 Critically low >=60 [facility] Comment on above: Performed By: #### P THINT #### [facility] [address] [place] [address] Dr. Ember Teague EGFR-NON AF SAMMARINESE 28 mL/min/1.73m2 Critically low >=60 [facility] Comment on above: Performed By: #### P THINT #### [facility] [address] [address] [address] Ember Teague Glucose [Mass/Vol] 199 mg/dL Critically high 74-106 [facility] Comment on above: Performed By: #### P THINT #### [facility] [address] [address] [address] Ember Teague Phosphate [Mass/Vol] 4.3 mg/dL Normal 2.6-4.7 [facility] Comment on above: Performed By: #### P THINT #### [facility] [address] [address] [address] Ember Teague Potassium [Moles/Vol] 4.9 mmol/L Normal 3.5-5.1 [facility] Comment on above: Performed By: #### P THINT #### [facility] [address] [place] [address] Dr. Ember Teague Sodium [Moles/Vol] 135 mmol/L Critically low 136-145 [facility] Comment on above: Performed By: #### P THINT #### [facility] [address] [place] [address] Dr. Ember Teague Urea nitrogen [Mass/Vol] 34.0 mg/dL Critically high 7.0-18.0 [facility] Comment on above: Performed By: #### P THINT #### [facility] [address] [place] [address] Dr. Ember Teague VITAMIN D 25 OHon 06-25-2022 VIT D 25-OH 40.6 ng/mL Normal [facility] Comment on above: Performed By: #### P THINT #### [facility] [address] [place] [address] Dr. Ember Teague VIT D RANGES SEE BELOW Normal [facility] Comment on above: Result Comment: <20 ng/mL Vit D deficient 20 - <30 ng/mL Vit D insufficient 30 - 100 ng/mL Vit D sufficient >100 ng/mL Potential Toxicity Performed By: #### P THINT #### [facility] [address] [place] [address] Dr. Ember Teague Covid-19 PCR (CVDTB)on 06-07 SARS-CoV-2 (COVID-19) RNA ALEXX+probe Ql (Unsp spec) Not detected Normal NOT DETECTED [facility] Comment on above: Result Comment: This test is not yet approved or cleared by the [place] FDA. When there are no FDA-approved or cleared tests available, and other criteria are met, FDA can make tests available under an emergency access mechanism called an Emergency Use Authorization (EUA). The EUA for this test is supported by the Dish Stacker of Health and Human Service's (HHS's) declaration [...] C [facility] #### [facility] [address] [place] [address] LSPINE WO CONon [...] YANET HUERTA Date: 2022-06-01 18:02 Normal [facility] XR LSPINE MIN 4 VIEWSon 08-1 5-2022 XR LSPINE MIN 4 VIEWS EXAMINATION: XR [...] YANET HUERTA Date: 2022-05-21 15:25 Normal [facility] PTH INTACTon 05-03-2022 PTH, Intact 60 pg/mL Normal 15-65 [facility] Comment on above: Performed By: #### C VDTBH #### [facility] [address] [address] [address] Ember Teague VIT D 25-OH LABCORPon 2021 Vitamin D, 25-Hydroxy 26.1 ng/mL Critically low 30.0-100.0 [facility] Comment on above: Result Comment: Sara min D deficiency has been defined by the [place] of [employer] and an Endocrine Society practice guideline as a level of serum 25-OH vitamin D less than 20 ng/mL (1,2). The Endocrine Society went on to further define vitamin D insufficiency as a level between 21 and 29 ng/mL (2). 1. IOM ([place] of Medicine). 2010. Dietary reference intakes for calcium and D. [place]: The National Academies Press. 2. Sherice MF, Wendy NC, Huan ZHONG, et al. Evaluation, treatment, and prevention of vitamin D deficiency: an Endocrine Society clinical practice guideline. JCEM. 2010; 96(7):1911-30. Performed By: #### R ENAL #### [facility] [address] [address] [address] Ember Teague FERRITINon 05-02-2022 Ferritin [Mass/Vol] 590.0 ng/mL Critically high 8.0-252.0 [facility] Comment on above: Performed By: #### R ENAL #### [facility] [address] [place] [address] Dr. Ember Teague HEMOGRAM AND PLATELon 2021 Hematocrit (Bld) [Volume fraction] 28.4 % Critically low 36.0-48.0 [facility] Comment on above: Performed By: #### C VDTBH #### [facility] [address] [place] [address] Dr. Ember Teague Hemoglobin (Bld) [Mass/Vol] 9.6 g/dL Critically low 12.0-16.0 [facility] Comment on above: Performed By: #### C VDTBH #### [facility] [address] [place] [address] Dr. Ember Teague MCH (RBC) [Entitic mass] 31.0 pg Normal 26.7-34.0 [facility] Comment on above: Performed By: #### C VDTBH #### [facility] [address] [place] [address] Dr. Ember Teague MCHC (RBC) [Mass/Vol] 33.8 g/dL Normal 29.9-35.2 [facility] Comment on above: Performed By: #### C VDTBH #### [facility] [address] [place] [address] Dr. Ember Teague MCV (RBC) [Entitic vol] 91.6 fL Normal 81.0-99.0 [facility] Comment on above: Performed By: #### C VDTBH #### [facility] [address] [place] [address] Dr. Ember Teague PLT 189 103/ul Normal 150-450 [facility] Comment on above: Performed By: #### C VDTBH #### [facility] [address] [place] [address] Dr. Ember Teague RBC 3.10 106/ul Critically low 4.20-5.40 [facility] Comment on above: Performed By: #### C VDTBH #### [facility] [address] [place] [address] Dr. Ember Teague WBC 6.2 103/ul Normal 4.0-11.0 [facility] Comment on above: Performed By: #### C VDTBH #### [facility] [address] [place] [address] Dr. Ember Teague IRON AND TIBCon 05-02-2022 % SATURATION 34.3 % Normal [facility] Comment on above: Performed By: #### R ENAL #### [facility] [address] [place] [address] Dr. Ember Teague Iron [Mass/Vol] 69.0 ug/dL Normal 50.0-170.0 [facility] Comment on above: Performed By: #### R ENAL #### [facility] [address] [place] [address] Dr. Ember Teague TIBC DIRECT 201.0 ug/dL Critically low 250.0-450.0 [facility] Comment on above: Performed By: #### R ENAL #### [facility] [address] [place] [address] Dr. Ember Teague MAGNESIUMon 05-02-2022 Magnesium [Mass/Vol] 1.7 mg/dL Critically low 1.8-2.4 [facility] Comment on above: Performed By: #### C VDTBH #### [facility] [address] [place] [address] Dr. Ember Teague RENAL FUNCTION PANELon 05-02 Albumin [Mass/Vol] 3.6 g/dL Normal 3.4-5.[address] [facility] Comment on above: Performed By: #### C VDTBH #### [facility] [address] [place] [address] Dr. Ember Teague Calcium [Mass/Vol] 9.2 mg/dL Normal 8.5-10.[address] [facility] Comment on above: Performed By: #### C VDTBH #### [facility] [address] [place] [address] Dr. Ember Teague Chloride [Moles/Vol] 107 mmol/L Normal 98-107 [facility] Comment on above: Performed By: #### C VDTBH #### [facility] [address] [address] [address] Ember Teague CO2 [Moles/Vol] 21.2 mmol/L Normal 21.0-32.0 [facility] Comment on above: Performed By: #### C VDTBH #### [facility] [address] [address] [address] Ember Teague Creatinine [Mass/Vol] 1.75 mg/dL Critically high 0.55-1.02 [facility] Comment on above: Performed By: #### C VDTBH #### [facility] [address] [address] [address] Ember Teague EGFR-AF SAMMARINESE 34 mL/min/1.73m2 Critically low >=60 [facility] Comment on above: Performed By: #### C VDTBH #### [facility] [address] [place] [address] Dr. Ember Teague EGFR-NON AF SAMMARINESE 28 mL/min/1.73m2 Critically low >=60 [facility] Comment on above: Performed By: #### C VDTBH #### [facility] [address] [address] [address] Ember Teague Glucose [Mass/Vol] 193 mg/dL Critically high 74-106 [facility] Comment on above: Performed By: #### C VDTBH #### [facility] [address] [place] [address] Dr. Ember Teague Phosphate [Mass/Vol] 4.2 mg/dL Normal 2.6-4.7 [facility] Comment on above: Performed By: #### C VDTBH #### [facility] [address] [address] [address] Ember Teague Potassium [Moles/Vol] 5.1 mmol/L Normal 3.5-5.1 [facility] Comment on above: Performed By: #### C VDTBH #### [facility] [address] [address] [address] Ember Teague Sodium [Moles/Vol] 139 mmol/L Normal 136-145 [facility] [place] Comment on above: Performed By: #### C VDTBH #### [facility] [address] [place] [address] Dr. Ember Teague Urea nitrogen [Mass/Vol] 34.0 mg/dL Critically high 7.0-18.0 [facility] Comment on above: Performed By: #### C VDTBH #### [facility] [address] [place] [address] Dr. Ember Teague UA RANDOM W/MICROSCOPICon BACTERIA SMALL Abnormal NONE SEEN [facility] Comment on above: Performed By: #### C VDTBH #### [facility] [address] [place] [address] Dr. Ember Teague Bilirubin Ql (U) Negative Normal NEGATIVE [facility] Comment on above: Performed By: #### C VDTBH #### [facility] [address] [place] [address] Dr. Ember Teageu CAST NONE SEEN Normal NONE SEEN [facility] Comment on above: Performed By: #### C VDTBH #### [facility] [address] [place] [address] Dr. Ember Teague Clarity (U) CLEAR Normal CLEAR [facility] Comment on above: Performed By: #### C VDTBH #### [facility] [address] [place] [address] Dr. Ember Teague Color (U) LT. YELLOW Normal YELLOW [facility] Comment on above: Performed By: #### C VDTBH #### [facility] [address] [place] [address] Dr. Ember Teague Crystals LM Nom (Urine sed) NONE SEEN Normal NONE SEEN [facility] Comment on above: Performed By: #### C VDTBH #### [facility] [address] [place] [address] Dr. Ember Teague Epithelial cells LM Ql (Urine sed) MODERATE Abnormal NONE SEEN /RARE [facility] Comment on above: Performed By: #### C VDTBH #### [facility] [address] [place] [address] Dr. Ember Teague Glucose Ql (U) Negative Normal NEGATIVE [facility] Comment on above: Performed By: #### C VDTBH #### [facility] [address] [place] [address] Dr. Ember Teague Hemoglobin Ql (U) Negative Normal NEGATIVE [facility] Comment on above: Performed By: #### C VDTBH #### [facility] [address] [place] [address] Dr. Ember Teague Ketones Ql (U) Negative Normal NEGATIVE [facility] Comment on above: Performed By: #### C VDTBH #### [facility] [address] [place] [address] Dr. Ember Teague LEUKOCYTES TRACE Abnormal NEGATIVE [facility] Comment on above: Performed By: #### C VDTBH #### [facility] [address] [place] [address] Dr. Ember Teague MUCOUS NONE SEEN Normal NONE SEEN [facility] Comment on above: Performed By: #### C VDTBH #### [facility] [address] [place] [address] Dr. Ember Teague Nitrite Ql (U) Negative Normal NEGATIVE [facility] Comment on above: Performed By: #### C VDTBH #### [facility] [address] [place] [address] Dr. Ember Teague pH (U) 5.0 [pH] Normal 5-9 [facility] Comment on above: Performed By: #### C VDTBH #### [facility] [address] [place] [address] Dr. Ember Teague RBC NONE SEEN Abnormal 0-2 [facility] Comment on above: Performed By: #### C VDTBH #### [facility] [address] [place] [address] Dr. Ember Teague SPEC GRAVITY 1.015 Normal 1.005-<=1.025 [facility] Comment on above: Performed By: #### C VDTBH #### [facility] [address] [place] [address] Dr. Ember Teague UA PROTEIN TRACE Normal NEGATIVE/ TRACE [facility] Comment on above: Performed By: #### C VDTBH #### [facility] [address] [place] [address] Dr. Ember Teague Urobilinogen Qn (U) 0.2 {Esau'U}/dL Normal 0.2 - 1. 0 [facility] Comment on above: Performed By: #### C VDTBH #### [facility] [address] [place] [address] Dr. Ember Teague WBC 0-2 Abnormal NONE SEEN [facility] Comment on above: Performed By: #### C VDTBH #### [facility] [address] [place] [address] Dr. Ember Teague URIC ACID SERUMon 05-02-2022 Urate [Mass/Vol] 4.4 mg/dL Normal 2.6-6.0 [facility] Comment on above: Performed By: #### C #### [facility] [address] [place] [address] Dr. Ember Teague URINE T PROTEIN CREAT RATIOo n 05-02-2022 Protein (U) [Mass/Vol] 33.7 mg/dL Critically high <=12.0 [facility] Comment on above: Performed By: #### C VDTBH #### [facility] [address] [place] [address] Dr. Ember Teague UR PROT CREAT RAT 0.69 Normal [facility] Comment on above: Performed By: #### C VDTBH #### [facility] [address] [place] [address] Dr. Ember Teague URINE CREAT 48.93 mg/dL Normal 20.00-300.00 [facility] Comment on above: Performed By: #### C VDTBH #### [facility] [address] [place] [address] Dr. Ember Teague Vital Signs Date Time Vital Sign Value Performing Clinician Facility 06-14-2025 10:11 Body height 163.8 cm Lorraine Mayer MD Work Phone: [facility] 06-14-2025 [id number] Body mass index (BMI) [Ratio] 32.28 kg/m2 Lorraine Mayer MD Work Phone: [facility] 06-14-2025 10:11-0400 Body weight 86.64 kg Lorraine Mayer MD Work Phone: [facility] 06-14-2025 10:11-0400 Diastolic blood pressure 74 mm[Hg] Lorraine Mayer MD Work Phone: [facility] 06-14-2025 10:11-0400 Heart rate 68 /min Lorraine Mayer MD Work Phone: [facility] 06-14-2025 10:11-0400 Respiratory rate 16 /min Lorraine Mayer MD Work Phone: [facility] 06-14-2025 10:11-0400 SaO2% (BldA) [Mass fraction] 97 % Lorraine Mayer MD Work Phone: [facility] 06-14-2025 10:11-0400 Systolic blood pressure 124 mm[Hg] Lorraine Mayer MD Work Phone: [facility] 02-15-2025 09:51-0400 Body height 168.9 cm Lorraine Mayer MD Work Phone: [facility] 02-15-2025 09:51-0400 Body mass index (BMI) [Ratio] 31 kg/m2 Lorraine Mayer MD Work Phone: [facility] 02-15-2025 09:51-0400 Body weight 88.45 kg Lorraine Mayer MD Work Phone: [facility] 02-15-2025 09:51-0400 Diastolic blood pressure 62 mm[Hg] Lorraine Mayer MD Work Phone: [facility] 02-15-2025 09:51-0400 Heart rate 63 /min Lorraine Mayer MD Work Phone: [facility] 02-15-2025 09:51-0400 Respiratory rate 16 /min Lorraine Mayer MD Work Phone: [facility] 02-15-2025 09:51-0400 SaO2% (BldA) [Mass fraction] 97 % Lorraine Mayer MD Work Phone: [facility] 02-15-2025 09:51-0400 Systolic blood pressure 132 mm[Hg] Lorraine Mayer MD Work Phone: [facility] 01-14-2025 09:15-0400 Body height 168.91 cm [facility] 01-14-2025 09:15-0400 Body mass index (BMI) [Ratio] 30.8 kg/m2 [facility] 01-14-2025 09:15-0400 Body temperature 98.2 [degF] [facility] 01-14-2025 09:15-0400 Body weight 88.05 kg [facility] 01-14-2025 09:15-0400 Diastolic blood pressure 58 mm[Hg] [facility] 01-14-2025 09:15-0400 Heart rate 65 /min [facility] 01-14-2025 09:15-0400 Respiratory rate 16 /min [facility] 01-14-2025 09:15-0400 SaO2% (BldA) [Mass fraction] 98 % [facility] 01-14-2025 09:15-0400 Systolic blood pressure 128 mm[Hg] [facility] 11-16-2024 09:49-0500 Body height 168.9 cm Lorraine Mayer MD Work Phone: [facility] 11-16-2024 09:49-0500 Body mass index (BMI) [Ratio] 30.53 kg/m2 Lorraine Mayer MD Work Phone: [facility] 11-16-2024 09:49-0500 Body weight 87.09 kg Lorraine Mayer MD Work Phone: [facility] 11-16-2024 09:49-0500 Diastolic blood pressure 80 mm[Hg] Lorraine Mayer MD Work Phone: [facility] 11-16-2024 09:49-0500 Heart rate 62 /min Lorraine Mayer MD Work Phone: [facility] 11-16-2024 09:49-0500 Respiratory rate 16 /min Lorraine Mayer MD Work Phone: [facility] 11-16-2024 09:49-0500 SaO2% (BldA) [Mass fraction] 97 % Lorraine Mayer MD Work Phone: [facility] 11-16-2024 09:49-0500 Systolic blood pressure 130 mm[Hg] Lorraine Mayer MD Work Phone: [facility] 01-17-2024 12:56-0400 Body height 168.9 cm Thuan Lucas MD Work Phone: [facility] 01-17-2024 12:56-0400 Body mass index (BMI) [Ratio] 30.05 kg/m2 Thuan Lucas MD Work Phone: [facility] 01-17-2024 12:56-0400 Body weight 85.73 kg Thuan Lucas MD Work Phone: [facility] 01-17-2024 12:56-0400 Diastolic blood pressure 70 mm[Hg] Thuan Lucas MD Work Phone: [facility] 01-17-2024 12:56-0400 Heart rate 60 /min Thuan Lucas MD Work Phone: [facility] 01-17-2024 12:56-0400 SaO2% (BldA) [Mass fraction] 98 % Thuan Lucas MD Work Phone: [facility] 01-17-2024 12:56-0400 Systolic blood pressure 180 mm[Hg] Thuan Lucas MD Work Phone: [facility] 11-18-2023 10:00-0500 Body height 168.91 cm Ron Martinez Other [facility] Other 11-18-2023 10:00-0500 Body mass index (BMI) [Ratio] 29.85 kg/m2 Ron Doreen Other [facility] Other 11-18-2023 10:00-0500 Body temperature 97.3 [degF] Ron Doreen Other [facility] Other 11-18-2023 10:00-0500 Body weight 85.19 kg Ron Doreen Other [facility] Other 11-18-2023 10:00-0500 Diastolic blood pressure 79 mm[Hg] Ron Doreen Other [facility] Other 11-18-2023 10:00-0500 Respiratory rate 18 /min Ron Doreen Other [facility] Other 11-18-2023 10:00-0500 SaO2% (BldA) [Mass fraction] 98 % Ron Doreen Other [facility] Other 11-18-2023 10:00-0500 Systolic blood pressure 149 mm[Hg] Ron Doreen Other [facility] Other 11-04-2023 11:00-0500 Body height 168.91 cm Ron Doreen Other [facility] Other 11-04-2023 11:00-0500 Body mass index (BMI) [Ratio] 30.17 kg/m2 Ron Doreen Other [facility] Other 11-04-2023 11:00-0500 Body temperature 97.6 [degF] Ron Doreen Other [facility] Other 11-04-2023 11:00-0500 Body weight 86.09 kg Ron Doreen Other [facility] Other 11-04-2023 11:00-0500 Diastolic blood pressure 76 mm[Hg] Ron Doreen Other [facility] Other 11-04-2023 11:00-0500 Respiratory rate 18 /min Ron Doreen Other [facility] Other 11-04-2023 11:00-0500 SaO2% (BldA) [Mass fraction] 98 % Ron Doreen Other [facility] Other 11-04-2023 11:00-0500 Systolic blood pressure 153 mm[Hg] Ron Doreen Other [facility] Other 10-15-2023 13:00-0500 Body height 168.91 cm Ron Doreen Other [facility] Other 10-15-2023 13:00-0500 Body mass index (BMI) [Ratio] 29.82 kg/m2 Ron Doreen Other [facility] Other 10-15-2023 13:00-0500 Body temperature 97.5 [degF] Ron Doreen Other [facility] Other 10-15-2023 13:00-0500 Body weight 85.1 kg Ron Doreen Other [facility] Other 10-15-2023 13:00-0500 Diastolic blood pressure 68 mm[Hg] Ron Doreen Other [facility] Other 10-15-2023 13:00-0500 Respiratory rate 18 /min Ron Doreen Other [facility] Other 10-15-2023 13:00-0500 SaO2% (BldA) [Mass fraction] 98 % Ron Doreen Other [facility] Other 10-15-2023 13:00-0500 Systolic blood pressure 113 mm[Hg] Ron Doreen Other [facility] Other 08-27-2023 09:40-0500 Body height 168.91 cm Azduc Nerdiess Other [facility] Other 08-27-2023 09:40-0500 Body mass index (BMI) [Ratio] 30.2 kg/m2 Aziz Nerdiess Other [facility] Other 08-27-2023 09:40-0500 Body temperature 96.7 [degF] Aziz Nerdiess Other [facility] Other 08-27-2023 09:40-0500 Body weight 86.18 kg Aziz Nerdiess Other [facility] Other 08-27-2023 09:40-0500 Diastolic blood pressure 72 mm[Hg] Aziz Nerdiess Other [facility] Other 08-27-2023 09:40-0500 Respiratory rate 18 /min Aziz Nerdiess Other [facility] Other 08-27-2023 09:40-0500 SaO2% (BldA) [Mass fraction] 98 % Azduc Mensahs Other [facility] Other 08-27-2023 09:40-0500 Systolic blood pressure 153 mm[Hg] Mary Anne Mensahs Other [facility] Other 08-15-2023 10:20-0500 Body height 168.91 cm Ron Doreen Other [facility] Other 08-15-2023 10:20-0500 Body mass index (BMI) [Ratio] 30.2 kg/m2 Ron Doreen Other [facility] Other 08-15-2023 10:20-0500 Body temperature 97.1 [degF] Ron Doreen Other [facility] Other 08-15-2023 10:20-0500 Body weight 86.18 kg Ron Doreen Other [facility] Other 08-15-2023 10:20-0500 Diastolic blood pressure 79 mm[Hg] Ron Doreen Other [facility] Other 08-15-2023 10:20-0500 Respiratory rate 18 /min Ron Doreen Other [facility] Other 08-15-2023 10:20-0500 SaO2% (BldA) [Mass fraction] 98 % Ron Doreen Other [facility] Other 08-15-2023 10:20-0500 Systolic blood pressure 164 mm[Hg] Ron Doreen Other [facility] Other 08-13-2023 15:40-0500 Body height 168.91 cm Ron Doreen Other [facility] Other 08-13-2023 15:40-0500 Body mass index (BMI) [Ratio] 30.24 kg/m2 Ron Doreen Other [facility] Other 08-13-2023 15:40-0500 Body temperature 97.2 [degF] Ron Doreen Other [facility] Other 08-13-2023 15:40-0500 Body weight 86.27 kg Ron Doreen Other [facility] Other 08-13-2023 15:40-0500 Diastolic blood pressure 79 mm[Hg] Ron Doreen Other [facility] Other 08-13-2023 15:40-0500 Respiratory rate 18 /min Ron Doreen Other [facility] Other 08-13-2023 15:40-0500 SaO2% (BldA) [Mass fraction] 98 % Ron Doreen Other [facility] Other 08-13-2023 15:40-0500 Systolic blood pressure 186 mm[Hg] Ron Doreen Other [facility] Other 08-01-2023 13:00-0400 Body height 168.91 cm Ron Doreen Other [facility] Other 08-01-2023 13:00-0400 Body mass index (BMI) [Ratio] 30.55 kg/m2 Ron Doreen Other [facility] Other 08-01-2023 13:00-0400 Body temperature 97.8 [degF] Ron Doreen Other [facility] Other 08-01-2023 13:00-0400 Body weight 87.18 kg Ron Doreen Other [facility] Other 08-01-2023 13:00-0400 Diastolic blood pressure 72 mm[Hg] Ron Doreen Other [facility] Other 08-01-2023 13:00-0400 Respiratory rate 18 /min Ron Doreen Other [facility] Other 08-01-2023 13:00-0400 SaO2% (BldA) [Mass fraction] 98 % Orn Doreen Other [facility] Other 08-01-2023 13:00-0400 Systolic blood pressure 160 mm[Hg] Ron Doreen Other [facility] Other 06-24-2023 11:40-0400 Body height 168.91 cm Ron Doreen Other [facility] Other 06-24-2023 11:40-0400 Body mass index (BMI) [Ratio] 29.89 kg/m2 Ron Doreen Other [facility] Other 06-24-2023 11:40-0400 Body temperature 97.3 [degF] Ron Doreen Other [facility] Other 06-24-2023 11:40-0400 Body weight 85.28 kg Ron Doreen Other [facility] Other 06-24-2023 11:40-0400 Diastolic blood pressure 75 mm[Hg] Ron Doreen Other [facility] Other 06-24-2023 11:40-0400 Respiratory rate 18 /min Ron Doreen Other [facility] Other 06-24-2023 11:40-0400 SaO2% (BldA) [Mass fraction] 99 % Ron Doreen Other [facility] Other 06-24-2023 11:40-0400 Systolic blood pressure 129 mm[Hg] Ron Doreen Other [facility] Other 06-06-2023 15:20-0400 Body height 168.91 cm Ron Doreen Other [facility] Other 06-06-2023 15:20-0400 Body mass index (BMI) [Ratio] 29.92 kg/m2 Ron Doreen Other [facility] Other 06-06-2023 15:20-0400 Body temperature 96.5 [degF] Ron Doreen Other [facility] Other 06-06-2023 15:20-0400 Body weight 85.37 kg Ron Doreen Other [facility] Other 06-06-2023 15:20-0400 Diastolic blood pressure 49 mm[Hg] Ron Doreen Other [facility] Other 06-06-2023 15:20-0400 Respiratory rate 18 /min Ron Doreen Other [facility] Other 06-06-2023 15:20-0400 SaO2% (BldA) [Mass fraction] 99 % Ron Doreen Other [facility] Other 06-06-2023 15:20-0400 Systolic blood pressure 128 mm[Hg] Ron Doreen Other [facility] Other 04-30-2023 11:40-0400 Body height 168.91 cm Ron Doreen Other [facility] Other 04-30-2023 11:40-0400 Body mass index (BMI) [Ratio] 30.52 kg/m2 Ron Doreen Other [facility] Other 04-30-2023 11:40-0400 Body temperature 96.9 [degF] Ron Doreen Other [facility] Other 04-30-2023 11:40-0400 Body weight 87.09 kg Ron Doreen Other [facility] Other 04-30-2023 11:40-0400 Diastolic blood pressure 80 mm[Hg] Ron Doreen Other [facility] Other 04-30-2023 11:40-0400 Respiratory rate 18 /min Ron Doreen Other [facility] Other 04-30-2023 11:40-0400 SaO2% (BldA) [Mass fraction] 98 % Ron Doreen Other [facility] Other 04-30-2023 11:40-0400 Systolic blood pressure 150 mm[Hg] Ron Doreen Other [facility] Other 04-06-2023 09:00-0400 Body height 168.91 cm Ron Doreen Other [facility] Other 04-06-2023 09:00-0400 Body mass index (BMI) [Ratio] 30.36 kg/m2 Ron Doreen Other [facility] Other 04-06-2023 09:00-0400 Body weight 86.64 kg Ron Doreen Other [facility] Other 04-06-2023 09:00-0400 Diastolic blood pressure 54 mm[Hg] Ron Doreen Other [facility] Other 04-06-2023 09:00-0400 Respiratory rate 18 /min Ron Doreen Other [facility] Other 04-06-2023 09:00-0400 SaO2% (BldA) [Mass fraction] 98 % Ron Doreen Other [facility] Other 04-06-2023 09:00-0400 Systolic blood pressure 144 mm[Hg] Ron Doreen Other [facility] Other 04-02-2023 14:40-0400 Body height 168.91 cm Ron Doreen Other [facility] Other 04-02-2023 14:40-0400 Body mass index (BMI) [Ratio] 30.55 kg/m2 Ron Doreen Other [facility] Other 04-02-2023 14:40-0400 Body temperature 97 [degF] Ron Doreen Other [facility] Other 04-02-2023 14:40-0400 Body weight 87.18 kg Ron Doreen Other [facility] Other 04-02-2023 14:40-0400 Diastolic blood pressure 76 mm[Hg] Ron Doreen Other [facility] Other 04-02-2023 14:40-0400 Respiratory rate 18 /min Ron Doreen Other [facility] Other 04-02-2023 14:40-0400 SaO2% (BldA) [Mass fraction] 98 % Ron Doreen Other [facility] Other 04-02-2023 14:40-0400 Systolic blood pressure 183 mm[Hg] Ron Doreen Other [facility] Other 03-07-2023 09:20-0400 Body height 168.91 cm Ron Doreen Other [facility] Other 03-07-2023 09:20-0400 Body mass index (BMI) [Ratio] 30.52 kg/m2 Ron Doreen Other [facility] Other 03-07-2023 09:20-0400 Body temperature 97.1 [degF] Ron Doreen Other [facility] Other 03-07-2023 09:20-0400 Body weight 87.09 kg Ron Doreen Other [facility] Other 03-07-2023 09:20-0400 Diastolic blood pressure 72 mm[Hg] Ron Doreen Other [facility] Other 03-07-2023 09:20-0400 Respiratory rate 18 /min Ron Doreen Other [facility] Other 03-07-2023 09:20-0400 SaO2% (BldA) [Mass fraction] 97 % Ron Doreen Other [facility] Other 03-07-2023 09:20-0400 Systolic blood pressure 130 mm[Hg] Ron Doreen Other [facility] Other 12-20-2022 13:20-0400 Body height 168.91 cm Ron Doreen Other [facility] Other 12-20-2022 13:20-0400 Body mass index (BMI) [Ratio] 30.68 kg/m2 Ron Doreen Other [facility] Other 12-20-2022 13:20-0400 Body temperature 97.1 [degF] Ron Doreen Other [facility] Other 12-20-2022 13:20-0400 Body weight 87.54 kg Ron Doreen Other [facility] Other 12-20-2022 13:20-0400 Diastolic blood pressure 72 mm[Hg] Ron Doreen Other [facility] Other 12-20-2022 13:20-0400 Respiratory rate 18 /min Ron Doreen Other [facility] Other 12-20-2022 13:20-0400 SaO2% (BldA) [Mass fraction] 99 % Ron Doreen Other [facility] Other 12-20-2022 13:20-0400 Systolic blood pressure 139 mm[Hg] Ron Doreen Other [facility] Other 11-05-2022 14:00-0500 Body height 168.91 cm Ron Doreen Other [facility] Other 11-05-2022 14:00-0500 Body mass index (BMI) [Ratio] 30.59 kg/m2 Ron Doreen Other [facility] Other 11-05-2022 14:00-0500 Body temperature 96.8 [degF] Ron Doreen Other [facility] Other 11-05-2022 14:00-0500 Body weight 87.27 kg Ron Doreen Other [facility] Other 11-05-2022 14:00-0500 Diastolic blood pressure 72 mm[Hg] Ron Doreen Other [facility] Other 11-05-2022 14:00-0500 Respiratory rate 18 /min Ron Doreen Other [facility] Other 11-05-2022 14:00-0500 SaO2% (BldA) [Mass fraction] 98 % Ron Doreen Other [facility] Other 11-05-2022 14:00-0500 Systolic blood pressure 157 mm[Hg] Ron Doreen Other [facility] Other 09-27-2022 16:00-0500 Body height 168.91 cm Jana Monson Other [facility] Other 09-27-2022 16:00-0500 Body mass index (BMI) [Ratio] 30.55 kg/m2 Jana Monson Other [facility] Other 09-27-2022 16:00-0500 Body temperature 96.8 [degF] Jana De La Rosamiller Other [facility] Other 09-27-2022 16:00-0500 Body weight 87.18 kg Jana Monson Other [facility] Other 09-27-2022 16:00-0500 Diastolic blood pressure 73 mm[Hg] Jana Iona Other [facility] Other 09-27-2022 16:00-0500 Respiratory rate 18 /min Jana Monson Other [facility] Other 09-27-2022 16:00-0500 SaO2% (BldA) [Mass fraction] 98 % Jana De La Rosamiller Other [facility] Other 09-27-2022 16:00-0500 Systolic blood pressure 159 mm[Hg] Jana Iona Other [facility] Other 08-22-2022 12:00-0500 Body height 168.91 cm Ron Doreen Other [facility] Other 08-22-2022 12:00-0500 Body mass index (BMI) [Ratio] 30.65 kg/m2 Ron Doreen Other [facility] Other 08-22-2022 12:00-0500 Body temperature 96.9 [degF] Ron Doreen Other [facility] Other 08-22-2022 12:00-0500 Body weight 87.45 kg Ron Doreen Other [facility] Other 08-22-2022 12:00-0500 Diastolic blood pressure 75 mm[Hg] Ron Doreen Other [facility] Other 08-22-2022 12:00-0500 Respiratory rate 18 /min Ron Doreen Other [facility] Other 08-22-2022 12:00-0500 SaO2% (BldA) [Mass fraction] 96 % Ron Doreen Other [facility] Other 08-22-2022 12:00-0500 Systolic blood pressure 121 mm[Hg] Ron Doreen Other [facility] Other 05-08-2022 10:20-0400 Body height 168.91 cm Ron Doreen Other [facility] Other 05-08-2022 10:20-0400 Body mass index (BMI) [Ratio] 31.54 kg/m2 Ron Doreen Other [facility] Other 05-08-2022 10:20-0400 Body temperature 97.6 [degF] Ron Doreen Other [facility] Other 05-08-2022 10:20-0400 Body weight 89.99 kg Ron Doreen Other [facility] Other 05-08-2022 10:20-0400 Diastolic blood pressure 68 mm[Hg] Ron Doreen Other [facility] Other 05-08-2022 10:20-0400 Respiratory rate 18 /min Ron Doreen Other [facility] Other 05-08-2022 10:20-0400 SaO2% (BldA) [Mass fraction] 98 % Ron Doreen Other [facility] Other 05-08-2022 10:20-0400 Systolic blood pressure 131 mm[Hg] Ron Doreen Other [facility] Other 01-18-2022 10:20-0400 Body height 168.91 cm Ron Doreen Other [facility] Other 01-18-2022 10:20-0400 Body mass index (BMI) [Ratio] 31 kg/m2 Ron Doreen Other [facility] Other 01-18-2022 10:20-0400 Body temperature 96.4 [degF] Ron Doreen Other [facility] Other 01-18-2022 10:20-0400 Body weight 88.45 kg Ron Doreen Other [facility] Other 01-18-2022 10:20-0400 Diastolic blood pressure 74 mm[Hg] Ron Doreen Other [facility] Other 01-18-2022 10:20-0400 Respiratory rate 18 /min Ron Doreen Other [facility] Other 01-18-2022 10:20-0400 SaO2% (BldA) [Mass fraction] 97 % Ron Doreen Other [facility] Other 01-18-2022 10:20-0400 Systolic blood pressure 170 mm[Hg] Ron Doreen Other [facility] Other Encounters Encounter Date Encounter Type Care Provider Facility Start: 06-14-2025 End: 06-14-2025 Bamboo flowsheet Lorraine Mayer MD Work Phone: [facility] Start: 06-14-2025 End: 06-14-2025 Bamboo flowsheet Lorraine Mayer MD Work Phone: [facility] Start: 06-14-2025 End: 06-14-2025 Office outpatient visit 25 minutes Lorraine Mayer MD Work Phone: [facility] Comment on above: Type 2 diabetes [...] 05-25-2025 ambulatory Dhruv Rubi MD Work Phone: [facility] Work Phone: Start: 05-25-2025 End: 05-25-2025 Departed Referred Dhruv Barfield MD -[facility] Start: 04-21-2025 End: 04-21-2025 ambulatory Dhruv Rubi MD Work Phone: [facility] Work Phone: Start: 04-21-2025 End: 04-21-2025 Departed Referred Dmitriy Lynne MD -[facility] Start: 03-23-2025 End: 03-23-2025 Office outpatient visit 15 minutes Greg Tineo MD Work Phone: [facility] Comment on above: Seborrheic keratosis (Primary Dx); Seborrheic keratosis, inflamed; Solar purpura; Lentigines Start: 03-23-2025 End: 03-23-2025 ambulatory GREG TINEO Not Available Start: 03-23-2025 End: 03-23-2025 Bamboo flowsviry Tineo MD Work Phone: [facility] Start: 03-23-2025 End: 03-23-2025 Bamboo flowsviry Tineo MD Work Phone: [facility] Start: 03-07-2025 End: 03-12-2025 Refill Marie Garcia DRAG CAR RACER-STAFFING ANALYST Work Phone: [facility] Comment on above: Med Refill Start: 02-25-2025 End: 02-25-2025 ambulatory [address] [facility] Start: 02-15-2025 End: 02-15-2025 Bamboo flowsviry Mayer MD Work Phone: [facility] Start: 02-15-2025 End: 02-15-2025 Bamboo cornelio Mayer MD Work Phone: [facility] Start: 02-15-2025 End: 02-15-2025 Office outpatient visit 25 minutes Lorraine Mayer MD Work Phone: [facility] Comment on above: Type 2 diabetes diony itus with hyperglycemia, with long-term 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 (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); Encounter for dietary consultation; Chronic renal disease, stage IV ([facility]) Start: 02-15-2025 End: 02-15-2025 ambulatory LORRAINE MAYER Not Available Start: 01-14-2025 End: 01-14-2025 ambulatory [facility] Work Phone: Start: 01-14-2025 End: 01-14-2025 Patient encounter procedure [facility] Eliel Work Phone: Start: 01-05-2025 Non-patient / Non-visit [facility] Work Phone: Start: 12-21-2024 End: 12-21-2024 Telephone encounter Cary Goldman CMA [facility] Start: 12-12-2024 End: 2024 Refill Cristina Salamanca DRAG CAR RACER-STAFFING ANALYST Work Phone: [facility] Comment on above: Med Refill Start: 11-27-2024 End: 11-27-2024 ambulatory ALEJANDRO [facility] Start: 11-16-2024 End: 11-16-2024 Parmjit Mayer MD Work Phone: [facility] Start: 11-16-2024 End: 11-16-2024 Parmjit Mayer MD Work Phone: [facility] Start: 11-16-2024 End: 11-16-2024 Office outpatient visit 25 minutes Lorraine Mayer MD Work Phone: [facility] Comment on above: Type 2 diabetes diony itus with hyperglycemia, with long-term 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 ([facility]) (Primary Dx); Vitamin D deficiency; Microalbuminuria; Hyperlipemia, mixed ([facility]); Primary hypertension ([facility]); Insulin long-term use (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); Encounter for dietary consultation; Chronic renal disease, stage IV ([facility]) Start: 11-16-2024 End: 11-16-2024 ambulatory LORRAINE MAYER Not Available Start: 09-28-2024 End: 09-28-2024 Bamboo flowsheet Ga Lai DPM Work Phone: [facility] Start: 09-28-2024 End: 09-28-2024 Bamboo flowsheet Ga Lai DPM Work Phone: [facility] Start: 09-28-2024 End: 09-28-2024 Patient encounter procedure Ga Lai DPM Work Phone: [facility] Comment on above: Onychomycosis (Prima ry Dx); Pain in both feet; Corns and callosities; Type 2 diabetes mellitus without complication, with long-term 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 ([facility]) Start: 09-28-2024 End: 09-28-2024 ambulatory GA LAI Not Available Start: 09-05-2024 End: 09-11-2024 Refill Marie Garcia APRN-STAFFING ANALYST Work Phone: [facility] Comment on above: Med Refill Start: 07-13-2024 End: 07-13-2024 Parmjit Mayer MD Work Phone: [facility] Start: 07-13-2024 End: 07-13-2024 Bamboo flowsviry Mayer MD Work Phone: [facility] Start: 07-13-2024 End: 07-13-2024 Office outpatient visit 25 minutes Lorraine Mayer MD Work Phone: [facility] Comment on above: Type 2 diabetes diony itus with hyperglycemia, with long-term 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 ([facility]) (Primary Dx); Vitamin D deficiency; Microalbuminuria; Hyperlipemia, mixed ([facility]); Primary hypertension ([facility]); Insulin long[facility]term use (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); Encounter for dietary consultation; Chronic renal disease, stage IV ([facility]) Start: 07-13-2024 End: 07-13-2024 ambulatory LORRAINE MAYER Not Available Start: 06-25-2024 End: 06-25-2024 Bamboo flowsheet Ga Lai DPM Work Phone: [facility] Start: 06-25-2024 End: 06-25-2024 Bamboo flowsheet Ga Lai DPM Work Phone: [facility] Start: 06-25-2024 End: 06-25-2024 Patient encounter procedure Ga Lai DPM Work Phone: [facility] Comment on above: Onychomycosis (Prima ry Dx); Pain in both feet; Corns and callosities; Type 2 diabetes mellitus without complication, with long-term 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 ([facility]) Start: 06-25-2024 End: 06-25-2024 ambulatory GA LAI Not Available Start: 06-04-2024 End: 06-04-2024 Bamboo flowsheet Greg Tineo MD Work Phone: [facility] Start: 06-04-2024 End: 06-04-2024 Bamboo flowsheet Greg Tineo MD Work Phone: [facility] Start: 06-04-2024 End: 06-04-2024 Office outpatient visit 15 minutes Greg iTneo MD Work Phone: [facility] Comment on above: Granuloma annulare ( Primary Dx) Start: 05-25-2024 End: 05-25-2024 Patient encounter procedure Greg Tineo MD Work Phone: [facility] Comment on above: Rash and other nonsp ecific skin eruption (Primary Dx) Start: 03-18-2024 End: 03-23-2024 Refill Marie GALLOWAY Work Phone: [facility] Comment on above: Med Refill Start: 01-17-2024 End: 01-17-2024 ambulatory [facility] Start: 01-17-2024 End: 01-17-2024 Office outpatient visit 15 minutes Sarthak Rueda MD Work Phone: [facility] Comment on above: Paroxysmal atrial fi brillation (CMS-HCC) (Primary Dx); Stage 4 chronic kidney disease ([facility]); 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 ([facility]); Other forms of angina pectoris (CMS-HCC); Essential hypertension; Atherosclerosis of [place] coronary artery of [place] heart without angina pectoris; H/O four vessel coronary artery bypass graft; Hypertensive urgency; Shortness of breath; Localized edema Start: 01-16-2024 End: 01-16-2024 Telephone encounter Cary Goldman CMA [facility] Start: 12-21-2023 Refill Luis dominique PA-C Work Phone: [facility] Comment on above: Med Refill Start: 11-18-2023 End: 11-18-2023 ambulatory Ron Doreen Other [facility] Start: 11-18-2023 Office outpatient vi sit 15 minutes Ron D[facility]en [facility] Start: 11-04-2023 (INJECTION) INJECTION [facility] Start: 11-04-2023 End: 11-04-2023 ambulatory Ron Doreen Other [facility] Start: 10-15-2023 End: 10-15-2023 ambulatory Ron Doreen Other [facility] Other Start: 10-15-2023 Office outpatient vi sit 15 minutes Ron Doreen [facility] Start: 10-08-2023 End: 10-08-2023 ambulatory Aziz Bakhous Other [facility] Other Start: 10-08-2023 Telephone encounter Aziz Bakhous [facility] Start: 09-15-2023 End: 09-15-2023 ambulatory Ron Doreen Other [facility] Other Start: 09-15-2023 Telephone encounter Ron Doreen [facility] Start: 09-09-2023 End: 09-09-2023 ambulatory Ron Doreen Other [facility] Start: 09-09-2023 Telephone encounter Ron Doreen [facility] Start: 08-27-2023 (INJECTION) INJECTION Aziz Bakhous [facility] Start: 08-27-2023 End: 08-27-2023 ambulatory Aziz Bakhous Other [facility] Start: 08-15-2023 (INJECTION) INJECTION [facility] D[facility] Start: 08-15-2023 End: 08-15-2023 ambulatory Ron Doreen Other [facility] Start: 08-13-2023 (INJECTION) INJECTION [facility] Start: 08-13-2023 End: 08-13-2023 ambulatory Ron Doreen Other [facility] Start: 08-01-2023 End: 08-01-2023 ambulatory Ron Doreen Other [facility] Other Start: 08-01-2023 Office outpatient vi sit 15 minutes Ron Doreen [facility] Start: 06-24-2023 End: 06-24-2023 ambulatory Ron Doreen Other [facility] Other Start: 06-24-2023 Office outpatient vi sit 10 minutes Ron Doreen [facility] Start: 06-06-2023 End: 06-06-2023 ambulatory Ron Doreen Other [facility] Other Start: 06-06-2023 Office outpatient vi sit 15 minutes Ron Doreen [facility] Start: 04-30-2023 End: 04-30-2023 ambulatory Ron Doreen Other [facility] Start: 04-30-2023 Office outpatient vi sit 15 minutes Ron Doreen [facility] Start: 04-06-2023 (INJECTION) INJECTION [facility] Start: 04-06-2023 End: 04-06-2023 ambulatory Ron Doreen Other [facility] Start: 04-06-2023 Telephone encounter Ron Doreen [facility] Start: 04-02-2023 End: 04-02-2023 ambulatory Ron Doreen Other [facility] Other Start: 04-02-2023 Office outpatient vi sit 15 minutes Ron Doreen [facility] Start: 04-02-2023 Telephone encounter Ron Doreen [facility] Start: 03-07-2023 End: 03-07-2023 ambulatory Ron Doreen Other [facility] Other Start: 03-07-2023 Office outpatient vi sit 15 minutes Ron Doreen [facility] Start: 01-22-2023 End: 01-23-2023 ambulatory RON DOREEN Facility:[facility] Start: 12-20-2022 End: 12-20-2022 ambulatory Ron Doreen Other [facility] Other Start: 12-20-2022 Office outpatient vi sit 15 minutes Ron Doreen [facility] Start: 12-17-2022 End: 12-18-[address] DHRUV RUBI . Facility:[facility] Start: 12-10-2022 End: 12-11-2022 ambulatory RON DOREEN Facility:[facility] Start: 11-20-2022 End: 11-21-[address] BENI APARICIO Facility:[facility] Start: 11-05-2022 End: 11-05-2022 ambulatory Ron Doreen Other [facility] Other Start: 11-05-2022 Office outpatient vi sit 15 minutes Ron Doreen [facility] Start: 10-29-2022 End: 10-30-[address] JANA MONSON Facility:[facility] Start: 10-24-2022 End: 10-24-[address] LILLIAN ACOSTA . Facility:[facility] Start: 10-24-2022 End: 10-25-[address] DHRUV RUBI . Facility:[facility] Start: 09-27-2022 End: 09-27-2022 ambulatory Jana Monson Other [facility] Other Start: 09-27-2022 Office outpatient vi sit 15 minutes Jana Monson [facility] Start: 09-18-2022 End: 09-19-2022 ambulatory RON DOREEN Facility:[facility] Start: 09-11-2022 End: 09-11-[address] DHRUV RUBI . Facility:[facility] Start: 08-22-2022 End: 08-22-2022 ambulatory Ron Doreen Other [facility] Other Start: 08-22-2022 Office outpatient vi sit 15 minutes Ron Doreen [facility] Start: 08-13-2022 End: 08-14-2022 ambulatory RON DOREEN Facility:[facility] Start: 06-25-2022 End: 06-26-[address] DHRUV RUBI . Facility:[facility] Start: 06-18-2022 End: 06-18-[address] DHRUV RUBI . Facility:[facility] Start: 06-01-2022 End: 06-02-[address] YANET HUERTA Facility:[facility] Start: 05-28-2022 End: 05-28-2022 ambulatory Ron Doreen Other [facility] Other Start: 05-28-2022 Telephone encounter Ron Doreen [facility] Start: 05-21-2022 End: 05-22-[address] DHRUV RUBI . Facility:[facility] Start: 05-16-2022 End: 05-16-2022 ambulatory Ron Doreen Other [facility] Other Start: 05-16-2022 Telephone encounter Ron Doreen [facility] Start: 05-10-2022 End: 05-10-2022 ambulatory Ron Doreen Other [facility] Start: 05-10-2022 Telephone encounter Ron Doreen [facility] Start: 05-08-2022 End: 05-08-2022 ambulatory Ron Doreen Other [facility] Start: 05-08-2022 Office outpatient vi sit 25 minutes Ron Doreen [facility] Start: 05-02-2022 End: 05-03-2022 ambulatory RON DOREEN Facility:[facility] Start: 04-24-2022 End: 04-24-2022 ambulatory Aziz Bakhous Other [facility] Start: 04-24-2022 Telephone encounter Aziz Bakhous [facility] Start: 01-18-2022 End: 01-18-2022 ambulatory Ron Doreen Other [facility] Other Start: 01-18-2022 Office outpatient vi sit 25 minutes Ron Doreen [facility] Start: 05-21-2017 End: 05-22-2017 Ambulatory DEFAULT PHYSICIAN Facility:[facility] Procedures Date Procedure Procedure [...] four vessel coronary artery bypass graft Marck Vazquez Clifton DRAG CAR RACER-STAFFING ANALYST Work Phone: History of coronary artery bypass grafting H/O four vessel coronary artery bypass graft Marie Dicksonlosser DRAG CAR RACER-STAFFING ANALYST Work Phone: Plan of Treatment Date Care Activity Detail Author Start: 03-23-2026 End: 03-23-2026 Patient encounter procedure [facility] Start: 09-13-2025 End: 09-13-2025 Patient encounter procedure 09/13/2025 10:50 AM EST Office Visit [facility] [address] [place] [id number] Lorraine Mayer MD [address] [place] [address] [facility] Start: 06-14-2025 End: 06-14-2025 Patient encounter procedure [facility] Comment on above: Type 2 diabetes mellitus with hyperglyce constance, with long-term 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 ([facility]) Start: 06-07-2025 Influenza vaccination [facility] Start: 05-25-2025 Bacteria identified in Urine by [...] 03/23/2025 2:30 PM EDT Office Visit [facility] [address] [place] [address] Greg Tineo MD [address] [place] [address] Arrived [facility] Comment on above: Arrived Start: 03-16-2025 End: 03-16-2025 Patient encounter procedure 03/16/2025 8:35 AM EDT Office Visit [facility] [address] [place] [id number] Greg Tineo MD [address] [place] [address] [facility] Start: 02-15-2025 End: 02-15-2025 Patient encounter procedure [facility] Comment on above: Type 2 diabetes mellitus with hyperglyce constance, with long-term 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 ([facility]) Start: 01-16-2025 Adult BMI Screening Adult BMI Screening [facility] Start: 01-16-2025 Tobacco Screening Tobacco Screening [facility] Start: 12-31-2024 End: 12-31-2024 Patient encounter procedure 12/31/2024 10:15 AM EDT Procedure Visit [facility] [address] [place] [address] Ga Lai DPM [address] [place] [address] [facility] Start: 11-16-2024 End: 11-16-2024 Patient encounter procedure [facility] Comment on above: Type 2 diabetes mellitus with hyperglyce constance, with long-term 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 ([facility]) Start: 09-28-2024 End: 09-28-2024 Patient encounter procedure [facility] Comment on above: Arrived Start: 07-13-2024 End: 07-13-2024 Patient encounter procedure [facility] Comment on above: Type 2 diabetes mellitus with hyperglyce constance, with long-term 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 ([facility]) Start: 06-25-2024 End: 06-25-2024 Patient encounter procedure [facility] Comment on above: Arrived Start: 06-07-2024 COVID-19 Vaccine () COVID-19 Vaccine () [facility] Start: 06-07-2024 Influenza vaccination [facility] Start: 06-04-2024 End: 06-04-2024 Patient encounter procedure [facility] Comment on above: Arrived Start: 03-19-2024 Adult BMI Screening Adult BMI Screening [facility] Start: 03-19-2024 Tobacco Screening Tobacco Screening [facility] Start: 02-21-2024 End: 02-21-2024 Patient encounter procedure 02/21/2024 2:00 PM EDT Office Visit [facility] [address] [place] [phone] Thuan Lucas MD [address] [place], [place] [id number] [facility] Start: 01-24-2024 End: 01-16-2025 Basic metabolic 2000 panel - Serum or Plasma Basic Metabolic Panel Lab Routine Stage 4 chronic kidney disease ([facility]) Essential hypertension Expected: 01/24/2024 (Approximate), Expires: 01/16/2025 [facility] Work Phone: Comment on above: Expected: 01/24/2024 (Approximate), Expi res: 01/16/2025 Start: 01-24-2024 End: 01-24-2024 Clinical Support 01/24/2024 10:30 AM EDT Clinical Support [facility] [address] [place] [phone] [facility] Start: 01-17-2024 End: 01-17-2024 Patient encounter procedure 01/17/2024 1:00 PM EDT Office Visit [facility] [address] [place] [phone] Sarthak Rueda MD [address] [place] [address] Thuan Lucas MD [address] [place] [address] [facility] Start: 06-07-2023 COVID-19 Vaccine ( season) COVID-19 Vaccine ( season) [facility] Start: 06-07-2023 Influenza vaccination Influenza Vaccine [facility] Start: 12-28-2021 Depression Screening Depression Screening [facility] Start: 2009 Fall Risk Screening Fall Risk Screening [facility] Start: 1994 Administration of varicella zoster vaccine Zoster (Shingles) Vaccine (1 of 2) [facility] Start: 12-15-1963 DTaP,Tdap and Td Vaccines (1 - Tdap) DTaP,Tdap and Td Vaccines (1 - Tdap) [facility] Start: 1962 Adult BMI Follow Up Plan Adult BMI Follow Up Plan [facility] Start: 1956 Depression Screening Depression Screening [facility] Start: 1944 Medicare Annual Wellness Visit Medicare Annual Wellness Visit [facility] Dermatopathology exam Dermatopat hology exam Pathology and Cytology Timed Rash and other nonspecific skin eruption Release Upon Ordering for 1 Occurrences starting 05/25/2024 [facility] Work Phone: Comment on above: Release Upon Ordering for 1 Occurrences starting 05/25/2024 End: 12-12-2025 Lipid panel Lipid panel Lab Routine Medication management 1 Occurrences starting 2024 until 12/12/2025 [employer] Work Phone: Comment on above: 1 Occurrences starting 2024 until 12/12/2025 End: 12-12-2025 Magnesium [Mass/volume] in Serum or Plasma Magnesium Lab Routine Medication management 1 Occurrences starting 2024 until 12/12/2025 [employer] Work Phone: Comment on above: 1 Occurrences starting 2024 until 12/12/2025 Renal function 2000 panel - Serum or Plasma [facility] Immunizations Immunization Date Immunization Notes Care Provider Fa cility 07-11-2023 influenza virus vacc ine, unspecified formulation Lorraine Mayer MD Work Phone: [facility] 07-10-2022 unknown vaccine or immune globulin Ga Lai DPM Work Phone: [facility] 07-20-2021 unknown vaccine or immune globulin Ga Lai DPM Work Phone: [facility] 07-18-2020 Seasonal trivalent influenza vaccine, adjuvanted, preservative free Luis Kb PA-C Work Phone: [facility] 07-18-2020 influenza virus vacc ine, unspecified formulation Luis Kb PA-C Work Phone: [facility] 07-22-2019 Seasonal trivalent influenza vaccine, adjuvanted, preservative free Luis Kb PA-C Work Phone: [facility] 07-20-2019 influenza, injectabl e, quadrivalent, preservative free Ga Lai DPM Work Phone: [facility] 07-14-2018 Seasonal trivalent influenza vaccine, adjuvanted, preservative free Luis Kb PA-C Work Phone: [facility] 07-15-2017 pneumococcal conjuga te vaccine, 13 valent Luis Kb PA-C Work Phone: [facility] 07-08-2017 influenza, high dose seasonal, preservative-free Luis Kb PA-C Work Phone: [facility] 07-25-2016 influenza, high dose seasonal, preservative-free Luis Kb PA-C Work Phone: [facility] 07-11-2015 influenza, high dose seasonal, preservative-free Luis Kb PA-C Work Phone: [facility] 07-16-2014 influenza, seasonal, injectable Luis Kb PA-C Work Phone: [facility] 07-10-2013 influenza, seasonal, injectable Luis Kb PA-C Work Phone: [facility] 08-08-2012 influenza virus vacc ine, unspecified formulation Luis Kb PA-C Work Phone: [facility] 08-08-2012 pneumococcal polysaccharide vaccine, 23 valent Luis Kb PA-C [email or web address] 07-11-2011 influenza virus vacc ine, unspecified formulation Luis Kb PA-C Work Phone: [email or web address] 08-15-2010 influenza virus vacc ine, unspecified formulation Luis Kb PA-C Work Phone: [facility] 07-26-2009 influenza virus vacc ine, unspecified formulation Luis Kb PA-C Work Phone: [email or web address] 08-04-2008 influenza virus vacc ine, unspecified formulation Luis Kb PA-C Work Phone: [facility] 08-13-2007 influenza virus vacc ine, unspecified formulation Luis Kb PA-C Work Phone: [email or web address] 08-11-2004 influenza virus vacc ine, unspecified formulation Luis Kb PA-C Work Phone: [facility] 08-09-2003 influenza virus vacc ine, unspecified formulation Luis Kb PA-C Work Phone: [email or web address] 08-09-2003 pneumococcal polysaccharide vaccine, 23 valent Luis Kb PA-C Work Phone: [facility] [employer] [facility] Payers Date Payer Category Payer Self-pay 2021 Medicaid [employer] MED[employer]ARE A DVANTAGE [id number] 2021 Medicare [id number] 2021 Medicare HMO [employer] MEDICARE [id number] 1959 Medicare [id number] [id number] 1944 Unknown [id number] 2.16.840.1.768112.3.579.2.593 1944 Unknown [id number] 2.16.840.1.192301.3.579.2.593 1944 Unknown [id number] 2.16.840.1.904625.3.579.2.593 1944 Unknown [id number] 2.16.840.1.181841.3.579.2.593 1944 Unknown [id number] 2.16.840.1.523095.3.579.2.593 1944 Unknown [id number] 2.16.840.1.406976.3.579.2.593 1944 Unknown [id number] 2.16.840.1.587509.3.579.2.593 1944 Unknown [id number] 2.16.840.1.333206.3.579.2.593 1944 Unknown [id number] 2.16.840.1.967813.3.579.2.593 1944 Unknown [id number] 2.16.840.1.567565.3.579.2.593 1944 Unknown [id number] 2.16.840.1.659212.3.579.2.593 1944 Unknown [id number] 2.16.840.1.466521.3.579.2.593 1944 Unknown [id number] 2.16.840.1.762221.3.579.2.593 1944 Unknown [id number] 2.16.840.1.345239.3.579.2.593 1944 Unknown [id number] 2.16.840.1.954203.3.579.2.593 1944 Unknown [id number] 2.16.840.1.404340.3.579.2.593 1944 Unknown [id number] 2.16.840.1.476540.3.579.2.1286 1944 Unknown [id number] 2.16.840.1.587258.3.579.2.1259 1944 Unknown [id number] 2.16.840.1.196869.3.579.2.1259 1944 Unknown [id number] 2.16.840.1.626113.3.579.2.1259 1944 Unknown [id number] 2.16.840.1.697339.3.579.2.1259 1944 Unknown [id number] 2.16.840.1.984856.3.579.2.1259 1944 Unknown [id number] 2.16.840.1.475019.3.579.2.1259 1944 Unknown [id number] 2.16.840.1.914947.3.579.2.1259 Medicare Medicare [id number] Unknown Unknown [facility] [id number] Unknown [id number] 2.16.840.1.973898.3.579.2.531 Unknown [id number] 2.16.840.1.140973.3.579.2.531 Social History Date Type Detail Facility Unknown if ever smoked [facility] Start: 06-25-2024 End: 03-23-2025 Sex Assigned At [facility] Start: 03-14-2023 End: 06-15-2024 Tobacco smoking status [facility] Ex-smoker [facility] End: 10-07-1969 History of tobacco use Current smoker [facility] End: 10-07-1969 History of tobacco use Cigarette Smoker [facility] Start: 03-14-2023 End: 01-17-2024 Tobacco use and exposure Smokeless tobacco non-user [facility] Start: 06-25-2024 End: 03-23-2025 Alcoholic beverage intake Not Asked [facility] Start: 06-25-2024 End: 03-23-2025 History of Social function [facility] Start: 10-21-2023 Alcohol Comment caffeine intake: 1-2 cups per day [facility] Start: 1945 Sex assigned at Not on file [facility] Start: 03-19-2023 End: 01-17-2024 Alcoholic beverage intake Ex-drinker (finding) [facility] Do you belong to any clubs or organizations such as worship groups, unions, fraternal or athletic groups, or school groups? No [facility] Are you now , , , , never or living with a partner? [facility] How hard is it for y ou to pay for the very basics like food, housing, medical care, and heating Not hard at all [facility] Do you feel stress - tense, restless, nervous, or anxious, or unable to sleep at night because your mind is troubled all the time - these days [OSQ] Not at all [facility] Start: 05-21-2017 End: 01-14-2025 Sex [facility] (finding[facility] Start: 1945 Sex Assigned At Female [facility] [...] Lorraine Mayer MD - 06/14/2025 10:10 AM KARYNATEalexandre Tineo MD - 03/23/2025 2:30 PM Deny [...] said last GFR around 30 with her candy separator enrobing. Interim History: 03/2023 Follow-up visit on 03/12/2023 [...] she states GFR is 30, per her candy separator enrobing. Interim History: 08/24 Followup visit on 08/25/18 [...] reading of her . Lab done in [facility] BUN 28/creatinine 1.43, GFR 36, total cholesterol 188, triglycerides 323, LDL 76, SDL 48, TSH 0.606, free T4 1.5 [0.78-2.19], albumin/creatinine 161, TPO less than 6, thyroglobulin antibody less than 1. She is on Levemir 40 units twice a day, Novolog 10-16 units every meal, levothyroxine 150 mcg daily. interim Follow-up visit in 12/20/17 for CGM interpretation FreeStyle, Average 162 estimated [...] MG capsule 1 capsule, Every 12 hours usvdazcezfkk-lwds-sffcsdxw-folic acid (Centrum) chewable tablet 1 tablet, Daily [...] disease) Chronic kidney disease, stage III (moderate) (CMS-HCC) Current use of insulin (HCC) Diabetes (HCC) [...] deficiency Microalbuminuria Hyperlipemia, mixed Insulin long-term use ([facility]) Primary hypertension Pema's disease Encounter for dietary consultation Chronic renal disease, stage IV ([facility]) Follow up in about 3 months (around 09/13/2025). documented in this encounter [facility] 03-23-2025 History of Present illness Narrative Skin Check Location: Patient requests a skin examination of the face and arms Dermatologic history: history of Actinic Keratosis, history of Basal Cell Carcinoma, history of Squamous Cell Carcinoma Last visit: 1 year ago Established patient Lesions: Location: Left rastafarian Duration: 1 year Quality: denies pain, denies [...] or higher 2. SEBORRHEIC KERATOSIS, INFLAMED Left Mandaeism [place] and brown stuck on verrucous scaly papule [...] limited to risks of scarring, darker or finishing machine tender pigmentary changes, recurrence, incomplete removal and infection. [...] or tenderness Cryotherapy, skin lesion - Left Mandaeism 3. SOLAR PURPURA (2) Left Forearm - [...] Visit: 1 year documented in this encounter [facility] 02-25-2025 Note [facility] Cardiology Clinic Note Chief Complaint: Patient here for 3 month follow up. Patient states she is not feeling too bad. Patient states she is having a lot of congestion, coughing, SOB, dyspnea with exertion, leg swelling, fatigue and abdominal swelling. Dr. Hoy increased Lasix to 50mg x 1 month [...] kidney disease, Coronary artery disease, Diabetes mellitus ([facility]), Heart valve disease, Hyperlipidemia, and Hypertension. Surgical [...] CTAB, (more content not included)... [facility] 02-15-2025 History of Present illness Narrative Kylah [...] said last GFR around 30 with her candy separator enrobing. Interim History: 03/2023 Follow-up visit on 03/12/2023 [...] she states GFR is 30, per her candy separator enrobing. Interim History: 08/24 Followup visit on 08/25/18 [...] reading of her . Lab done in [facility] BUN 28/creatinine 1.43, GFR 36, total [...] MG capsule 1 capsule, Every 12 hours zocepgettwfj-kojw-edfkfvvz-folic acid (Centrum) chewable tablet 1 tablet, Daily [...] Chronic kidney disease, stage III (moderate) (HCC) (CMS/[facility]) Current use of insulin ([facility]) Diabetes (CMS/HCC) Frozen shoulder GERD (gastroesophageal reflux disease) Gout 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CMS/HCC) HLD (hyperlipidemia) (CMS/HCC) HTN (hypertension) (CMS/HCC) Hypoglycemia Hypothyroidism ([facility]) Obesity with body mass index (BMI) of 30.0 to 39.9 Squamous cell skin cancer Thyroid disease ([facility]) Type 2 diabetes mellitus with other diabetic kidney complication ([facility]) Vitamin D deficiency Past Surgical History: Procedure [...] hyperglycemia, with long-term 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 ([facility]) - POCT glucose manually resulted - POCT glycosylated hemoglobin (Hb A1C) docked device Vitamin D deficiency Microalbuminuria Hyperlipemia, mixed ([facility]) Primary hypertension ([facility]) Insulin long-term use ([facility]) 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[facility]) Encounter for dietary consultation Chronic renal disease, stage IV ([facility]) Said her last GFR 27 Assessment & [...] months (around 06/18/2025). documented in this encounter [facility] 12-21-2024 Miscellaneous Notes Phoned pt and lm on to call office for any further refills. Letter mailed to pt. documented in this encounter [facility] 12-21-2024 Telephone encounter Note Phoned pt and lm on to call office for any further refills. Letter mailed to pt. [facility] 12-12-2024 Miscellaneous Notes Last OV 01/16/24 Mg 12/31/24 Mg pended; refill letter mailed documented in this encounter [facility] [facility] 12-12-2024 Miscellaneous Notes Last OV 01/17/24 Lipid profile 07/08/23 Lipid panel pended; refill letter mailed documented in this encounter [facility] 12-12-2024 Telephone encounter Note Last OV 01/17/24 Mg 01/01/24 Mg pended; refill letter mailed [facility] 12-12-2024 Telephone encounter Note Last OV 01/17/24 Lipid profile 07/08/23 Lipid panel pended; refill letter mailed [facility] 11-27-2024 Note Patient here for 6 m o follow up CAD, hypertension, MR, and diastolic dysfunction. Had echo in Jun 2024. She presented to [facility] ED last week with concerns of elevated BP. She takes clonidine PRN for elevated SBP > 200. Denies chest pain and SOB. Does feel palpitations. She wonders if the clonidine patches would help her. Review of Systems Cardiovascular: Positive for irregular heartbeat and palpitations. Musculoskeletal: Positive for myalgias. All other systems reviewed and are negative. [facility] 11-27-2024 Note SUBJECTIVE Reason for Visit: Kylah [...] for a follow-up after being discharged from [facility] in February 2024. She was admitted [...] Diagnosis Acquired hypothyroidism Anemia Arthritis Atherosclerosis of [place] coronary artery of [place] heart without angina pectoris Combined forms of [...] o (more content not included)... [facility] 11-16-2024 History of Present illness Narrative Kylah [...] said last GFR around 30 with her candy separator enrobing. Interim History: 03/2023 Follow-up visit on 03/12/2023 [...] she states GFR is 30, per her candy separator enrobing. Interim History: 08/24 Followup visit on 08/25/18 [...] reading of her . Lab done in [facility] BUN 28/creatinine 1.43, GFR 36, total [...] MG capsule 1 capsule, Every 12 hours moncbyrnaanr-xlib-vmkpacoh-folic acid (Centrum) chewable tablet 1 tablet, Daily [...] GERD (gastroesophageal reflux disease) Gout 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[facility]) HLD (hyperlipidemia) ([facility] HTN (hypertension) ([facility]) Hypoglycemia Hypothyroidism ([facility]) Obesity with body mass index (BMI) of 30.0 to 39.9 Squamous cell skin cancer Thyroid disease ([facility]) Type 2 diabetes mellitus with other diabetic kidney complication ([facility]) Vitamin D deficiency [...] months (around 03/16/2025). documented in this encounter [facility] 09-06-2024 History of Present illness [...] if problems arise. documented in this encounter [facility] 09-05-2024 Miscellaneous Notes Asad 01/17/24 Cmp 01/01/24 documented in this encounter [facility] 09-05-2024 Telephone encounter Note Asad 01/17/24 Cmp 01/01/24 [facility] 07-13-2024 History of Present illness Narrative [...] said last GFR around 30 with her candy separator enrobing. Interim History: 03/2023 Follow-up visit on 03/12/2023 [...] she states GFR is 30, per her candy separator enrobing. Interim History: 08/24 Followup visit on 08/25/18 [...] reading of her . Lab done in [facility] BUN 28/creatinine 1.43, GFR 36, total [...] MG capsule 1 capsule, Every 12 hours zdfyacxkvnue-xxqj-uipzghnr-folic acid (Centrum) chewable tablet 1 tablet, Oral, [...] disease) Gout 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CMS/HCC) HLD (hyperlipidemia) ([facility]) HTN (hypertension) ([facility]) Hypoglycemia Hypothyroidism ([facility]) Obesity with body mass index (BMI) of 30.0 to 39.9 Squamous cell skin cancer Thyroid disease ([facility]) Type 2 diabetes mellitus with other diabetic kidney complication ([facility]) Vitamin D deficiency [...] hyperglycemia, with long-term 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 ([facility]) - POCT glucose manually resulted We will [...] months (around 11/13/2024). documented in this encounter [facility] 06-25-2024 History of Present illness [...] the callous site. documented in this encounter [facility] 06-04-2024 History of Present illness Narrative Follow up Diagnosis: Rash unspecified Location: hands Procedure performed: Punch biopsy Status: not as painful Date of procedure: 05/25/2024 Current treatment: Betamethasone Dipro 0.05% cream, here for biopsy results Suture Removal Patient here for suture removal: No complaints of redness, drainage or swelling at site, compliant with wound care. Location: Right Hypothenar [place] Procedure Performed: Punch biopsy Date of Procedure: 05/25/2024 Medications: Betamethasone All pertinent medical history, medications, and allergies were reviewed. General Exam: alert , oriented to person, place, and time , normal affect, well appearing Unaccompanied A focused exam completed based on patient reported problems, see below: 1. Granuloma annulare Left Hand - Anterior, Right Hand - Anterior [place] indurated annular plaques. Flaring today, but improved [...] any new/changing lesions documented in this encounter [facility] 05-25-2024 History of Present illness [...] and other nonspecific skin eruption Right Hypothenar [place] plaques Biopsy today, see procedure note. Start Betamethasone cream bid when flared, hold when clear. Lesion biopsy - Right Hypothenar [place] Type of biopsy: punch Informed consent: discussed [...] pending biopsy results documented in this encounter [facility] 03-18-2024 Miscellaneous Notes Asad 01/17/24 Mg 07/08/23 -per 07/09/23 refill encounter Pt needs mg, orders in place. documented in this encounter [facility] 03-18-2024 Telephone encounter Note Asad 01/17/24 Mg 07/08/23 -per 07/09/23 refill encounter Pt needs mg, orders in place. [facility] 01-17-2024 History of Present illness Narrative Kylah Robin Date of visit: 01/17/2024 Date of : 1945 Age: 78 y.o. Patient Active Problem List Diagnosis Diabetes mellitus ([facility]) Hypertensive urgency Arthritis Dyspnea Other forms of angina pectoris ([facility]) Unstable angina ([facility]) Obesity (BMI 30-39.9) H/O four vessel coronary artery bypass graft Paroxysmal atrial fibrillation (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 She was recently hospitalized at [facility] for poorly controlled blood pressure. Her blood [...] pain Chronic kidney disease COVID-19 Diabetes mellitus ([facility]) Dyspnea Edema GERD (gastroesophageal reflux disease) Gout Hyperlipidemia Hypertensive urgency Hypothyroidism Lower back pain Mitral regurgitation Osteopenia Ventricular hypertrophy No data recorded No data recorded No data recorded Past Surgical History: Procedure Laterality Date CARDIAC CATHETERIZATION CATARACT EXTRACTION, BILATERAL CHOLECYSTECTOMY COLONOSCOPY Coronary angiogram and left ventricular gram/pressure N/A 12/28/2020 Performed by Kassie Nicole MD at [facility] CARDIAC CATH LABS CORONARY ARTERY BYPASS GRAFT X 4 with OCASIO and SVG x3 / EVH LEFT upper and lower AND RIGHT upper LEG / LUCAS N/A 12/29/2020 Performed by Herrera De Paz MD at [facility] D[facility] FIRST TRIMESTER / TX INCOMPLETE [...] min Stress: No Stress Concern Present (12/28/2020) [employer] - Occupational Stress Questionnaire Feeling of Stress : Not at all Social Connections: Moderately Integrated (12/28/2020) Social Connection and Isolation Panel [NHANES] Frequency of Communication with Friends and Family: More than three times a week Frequency of Social Gatherings with Friends and Family: More than three times a week Attends Sabianist Services: More than 4 times per year [...] tablet Reorder IMPRESSIONS/PLAN 1. Paroxysmal atrial fibrillation ([facility]) - POCT EKG - carvediloL (COREG) 25 mg tablet; Take 2 tablets (50 mg total) by mouth in the morning and 2 tablets (50 mg total) before bedtime. Dispense: 180 tablet; Refill: 3 2. Stage 4 chronic kidney disease ([facility]) - Basic Metabolic Panel; Future 3. 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 ([facility]) 4. Other forms of angina pectoris ([facility]) 5. Essential hypertension - Basic Metabolic Panel; Future 6. Atherosclerosis of [place] coronary artery of [place] heart without angina pectoris 7. H/O four [...] BNP. 2. Atherosclerosis of coronary arteries of [place] heart without angina pectoris. Patient has had [...] RUBI MD Referring Physician: Dhruv Rubi MD [address] [place] [address] documented in this encounter [facility] 01-16-2024 Miscellaneous Notes Called patient to remind them to bring their most current copy of their medication list with them to their appt. Patient verbalizes understanding. [facility]24 Telephone encounter Note Called patient to remind them to bring their most current copy of their medication list with them to their appt. Patient verbalizes understanding. [facility]18[facility]2023 Evaluation note Encounter Date Diagnosis Assessment [...] potassium improved with dietary restriction and Lasix. [facility] 01-29-2024 Evaluation note* Encounter Date Diagnosis Assessment Notes Treatment Notes Treatment Clinical Notes Oct, Anemia of renal disease (ICD-10 - D63.1) Oct, CKD (chronic kidney disease) stage 4, GFR 15-29 ml/min (ICD-10 - N18.4) [facility] Other 01-09-2024 Evaluation note* Encounter Date Diagnosis [...] potassium improved with dietary restriction and Lasix. [facility] Other 12-04-2023 Evaluation note* Encounter Date Diagnosis [...] 4, GFR 15-29 ml/min (ICD-10 - N18.4) [facility] Other 11-21-2023 Evaluation note* Encounter Date Diagnosis Assessment Notes Treatment Notes Treatment Clinical Notes Aug, Anemia of renal disease (ICD-10 - D63.1) Aug, CKD (chronic kidney disease) stage 4, GFR 15-29 ml/min (ICD-10 - N18.4) [facility] 11-09-2023 Evaluation note* Encounter Date Diagnosis [...] of kidney mass hydronephrosis or kidney stones. [facility] Other 10-26-2023 Evaluation note* Encounter Date Diagnosis [...] potassium improved with dietary restriction and Lasix. [facility] Other 09-18-2023 Evaluation note* Encounter Date Diagnosis [...] potassium improved with dietary restriction and Lasix. [facility] Other 08-31-2023 Evaluation note* Encounter Date Diagnosis [...] potassium improved with dietary restriction and Lasix. [facility] Other 07-25-2023 Evaluation note* Encounter Date Diagnosis [...] to normal with dietary restriction and Lasix. [facility] Other 07-01-2023 Evaluation note* Encounter Date Diagnosis Assessment Notes Treatment Notes Treatment Clinical Notes Apr, CKD (chronic kidney disease) stage 4, GFR 15-29 ml/min (ICD-10 - N18.4) Apr, Anemia of renal disease (ICD-10 - D63.1) [facility] Other 06-27-2023 Evaluation note* Encounter Date Diagnosis [...] to normal with dietary restriction and Lasix. [facility] Other 06-01-2023 Evaluation note* Encounter Date Diagnosis [...] potassium diet and provide information about it. [facility] Other 03-16-2023 Evaluation note* Encounter Date Diagnosis [...] to Continue Vit D 5000 units daily [facility] Other 01-30-2023 Evaluation note* Encounter Date Diagnosis [...] to Continue Vit D 5000 units daily [facility] Other 12-22-2022 Evaluation note* Encounter Date Diagnosis [...] to Continue Vit D 5000 units daily [facility] Other 11-16-2022 Evaluation note* Encounter Date Diagnosis [...] to Continue Vit D 5000 units daily [facility] Other 08-04-2022 Evaluation note* Encounter Date Diagnosis Assessment Notes Treatment Notes Treatment Clinical Notes May, Hypertensive chronic kidney disease with stage 1 through stage 4 chronic kidney disease, or unspecified chronic kidney disease (ICD-10 - I12.9) [facility] Other 08-02-2022 Evaluation note* Encounter Date Diagnosis [...] to Continue Vit D 5000 units daily [facility] Other 07-19-2022 Evaluation note* Encounter Date Diagnosis Assessment Notes Treatment Notes Treatment Clinical Notes Apr, Hypertensive chronic kidney disease with stage 1 through stage 4 chronic kidney disease, or unspecified chronic kidney disease (ICD-10 - I12.9) [facility] Other 04-14-2022 Evaluation note* Encounter Date Diagnosis [...] to take Vit D 1000 units daily [facility] Other Evaluation noteNo InformationNort Yeahka Other Evaluation note* Diagnosis Type 2 diabetes mellitus with hyperglycemia, with long-term 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 ([facility])- Primary Vitamin D deficiency Microalbuminuria Proteinuria Hyperlipemia, mixed ([facility]) Mixed hyperlipidemia Primary hypertension ([facility]) Unspecified essential hypertension Insulin long-term use ([facility]) Encounter for long-term (current) use of insulin 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[facility]) Chronic lymphocytic thyroiditis Encounter for dietary consultation Chronic renal disease, stage IV ([facility]) Chronic kidney disease, Stage IV (severe) documented in this encounter [facility]* Diagnosis Rash and other nonspecific skin eruption- Primary documented in [facility] encounter [facility] Diagnosis Granuloma annulare- Primary Other specified erythematous condition documented in this encounter [facility]* Diagnosis Onychomycosis- Primary Dermatophytosis of nail Pain in both feet Corns and callosities Type 2 diabetes mellitus without complication, with long-term 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 ([facility]) documented [facility] encounter [facility] Diagnosis Onychomycosis- Primary Dermatophytosis of nail Pain in both feet Corns and callosities Type 2 diabetes mellitus without complication, with long-term 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 ([facility]) documented in this encounter [facility]* Diagnosis Type 2 diabetes mellitus with hyperglycemia, with long-term 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 ([facility])- Primary Vitamin D deficiency Microalbuminuria Proteinuria Hyperlipemia, mixed ([facility]) Mixed hyperlipidemia Primary hypertension ([facility]) Unspecified essential hypertension Insulin long-term use ([facility]) Encounter for long-term (current) use of insulin 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[facility]) Chronic lymphocytic thyroiditis Encounter for dietary consultation Chronic renal disease, stage IV ([facility]) Chronic kidney disease, Stage IV (severe) documented in this encounter [facility]* Diagnosis Atherosclerosis of [place] coronary artery of [place] heart without angina 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 Hypertensive urgency Shortness of breath Paroxysmal atrial fibrillation ([facility]) Atrial fibrillation Localized edema Edema 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* Diagnosis Medication management- Primary documented in this encounter [facility]* Diagnosis Medication management- Primary Atherosclerosis of [place] coronary artery of [place] heart without angina 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 Hypertensive urgency Shortness of breath Paroxysmal atrial fibrillation ([facility]) Atrial fibrillation Localized edema Edema documented in this encounter [facility]* Diagnosis Onset Date Resolution [...] kidney disease acute January 14, 2025 8:59am [facility] Work Phone: Evaluation note* Diagnosis Type 2 diabetes mellitus with hyperglycemia, with long-term 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 (CMS/HCC)- Primary Vitamin D deficiency Microalbuminuria Proteinuria Hyperlipemia, mixed (CMS/HCC) Mixed hyperlipidemia Primary hypertension (CMS/HCC) Unspecified essential hypertension Insulin long-term use (CMS/HCC) Encounter for long-term (current) use of insulin 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CMS/HCC) Chronic lymphocytic thyroiditis Encounter for dietary consultation Chronic renal disease, stage IV (CMS/HCC) Chronic kidney disease, Stage IV (severe) documented in this encounter [facility]* Diagnosis Hyperlipidemia, unspecified hyperlipidemia type- Primary Atherosclerosis of [place] coronary artery of [place] heart without angina 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 Hypertensive urgency Shortness of breath Paroxysmal atrial fibrillation ([facility]) Atrial fibrillation Localized edema Edema documented in this encounter [facility] note* Diagnosis Seborrheic keratosis- Primary Seborrheic keratosis, inflamed Solar purpura Lentigines documented in this encounter [facility] HealthcareEvaluation noteNo assessment information availableKindred Healthcare Work Phone: Evaluation note* Diagnosis Type 2 [...] Stage IV (severe) documented in this encounter [facility] HealthcareHistory general Narrative - Reported* Type [...] History SEE ABOVE Hospitalization History COVID 09/2020 [facility] Other History general Narrative - Reported* Type [...] History SEE ABOVE Hospitalization History COVID 09/2020 [facility] Other history general Narrative - Reported* Type [...] History SEE ABOVE Hospitalization History COVID 09/2020 [facility] Other history general Narrative - ReportedNoCapital Financial Global Other history general Narrative - Reported* Type [...] History SEE ABOVE Hospitalization History COVID 09/2020 [facility] Other InstructionsNot on filedocumented in this encounter [...] for referral (narrative)No reason for referral information availableSelect Medical [facility] Work Phone: Summary Purpose Family History [...] and content) DATE CREATED AUTHOR 04/02/2018 [facility] DATE CREATED AUTHOR AUTHOR'S ORGANIZ ATION 01/27/2023 [facility] DATE CREATED AUTHOR AUTHOR'S ORGANIZ ATION 01/18/2024 [facility] DATE CREATED AUTHOR AUTHOR'S ORGANIZ ATION 06/01/2025 [facility] DATE CREATED AUTHOR AUTHOR'S ORGANIZ ATION 06/15/2025 [facility] EPIC DATE CREATED AUTHOR AUTHOR'S ORGANIZ ATION 06/21/2025 [facility] REASON FOR VISIT (unrecogniz ed section [...] April 21, 2025 End: April 21, 2025 Wood Type Finisher Relationship Specialty Start Date End Date Dhruv Rubi MD [address] [place] [address] PCP - General Family Medicine 10/22/23 Wood Type Finisher Relationship Specialty Start Date End Date Dhruv Rubi MD [address] [place] [address] PCP - General Family Medicine 10/22/23 Wood Type Finisher Relationship Specialty Start Date End Date Dhruv Rubi MD [address] [place] [address] PCP - General Family Medicine 10/22/23 Wood Type Finisher Relationship Specialty Start Date End Date Dhruv Rubi MD [address] [place] [address] PCP - General Family Medicine 10/22/23 Wood Type Finisher Relationship Specialty Start Date End Date Dhruv Rubi MD [address] [facility] [place] [address] PCP - General Family Medicine 10/22/23 Wood Type Finisher Relationship Specialty Start Date End Date Dhruv Rubi MD [address] [place] [address] PCP - General Family Medicine 10/22/23 Wood Type Finisher Relationship Specialty Start Date End Date Dhruv Rubi MD [address] [place] [address] PCP - General Family Medicine 10/22/23 Wood Type Finisher Relationship Specialty Start Date End Date Dhruv Rubi MD [address] [place] [address] PCP - General Family Medicine 10/22/23 Wood Type Finisher Relationship Specialty Start Date End Date Dhruv Rubi MD [address] [place] [address] PCP - General Family Medicine 10/22/23 Wood Type Finisher Relationship Specialty Start Date End Date Dhruv Rubi MD [address] [place] [facility] [place] [address] PCP - General Family Medicine 10/20/20 Wood Type Finisher Relationship Specialty Start Date End Date Dhruv Rubi MD [address] [place] [facility] [place] [address] PCP - General Family Medicine 10/20/20 Wood Type Finisher Relationship Specialty Start Date End Date Dhruv Rubi MD [address] [place] [facility] [place] [address] PCP - General Family Medicine 10/20/20 Wood Type Finisher Relationship Specialty Start Date End Date Dhruv Rubi MD [address] [place] [address] PCP - General Family Medicine 10/20/20 Wood Type Finisher Relationship Specialty Start Date End Date Dhruv Rubi MD PCP - General Family Medicine 10/20/20 Wood Type Finisher Relationship Specialty Start Date End Date Dhruv Rubi MD PCP - General Family Medicine 10/20/20 Wood Type Finisher Relationship Specialty Start Date End Date Dhruv Rubi MD PCP - General Family Medicine 10/20/20 Wood Type Finisher Relationship Specialty Start Date End Date Dhruv [...] January 14, 2025 End: January 14, 2025 Wood Type Finisher Relationship Specialty Start Date End Date Dhruv Rubi MD PCP - General Family Medicine 10/22/23 Wood Type Finisher Relationship Specialty Start Date End Date Dhruv Rubi MD PCP - General Family Medicine 10/22/23 Wood Type Finisher Relationship Specialty Start Date End Date Dhruv Rubi MD PCP - General Family Medicine 10/20/20 Wood Type Finisher Relationship Specialty Start Date End Date Dhruv Rubi MD PCP - General Family Medicine 10/22/23 Wood Type Finisher Relationship Specialty Start Date End Date Dhruv Rubi MD PCP - General Family Medicine 10/22/23 Team Status: Inactive Member Role Status Dates Dhruv Rubi MD Attending Provider Active Sta rt: May 25, 2025 End: May 25, 2025 Wood Type Finisher Relationship Specialty Start Date End Date Dhruv [...] BE BASED ON THE PRIMARY CLINICAL RECORDS. [facility]. provides no warranty or guarantee of the accuracy or completeness of information in this document.
--- OUTSIDE RECORDS SUMMARY | 2025-06-29 06:45 | XMS_ITS | Encounter Summary ---
Author Organization [facility] tem Address [facility] [id number] [address] [place] [address] Care Team Providers Care Bss Solution Architect Name Role Phone Merrick Rubi MD Primary Care Provider [phone] Reason for Visit * Reason Onset Date Comments Status Post Cath 12/29/2020 Encounter Details Date Type Department Care Team (Late st Contact Info) Description 12/29/2020 Telephone [facility] [address] [place] [phone] Kassie Graham MD [address] [place], [place] [phone] Status Post Cath Social History Tobacco Use [...] How often do you attend chur or pentecostalism services? More than 4 times per year 12/28/2020 Do you belong to any clubs o r organizations such as confucianist groups, unions, fraternal or athletic groups, or [...] Answer Date Recorded Total Score 0 12/28/2020 [facility] - Occupational Stress [...] list: Pt had cath w/ [facility] @ [facility] where pt is currently admitted. Will [...] documented as of this encounter Care Teams Bss Solution Architect Relationship Specialty Start Date End Date Merrick Rubi MD PCP - General Family Medicine 10/20/20 documented as of this encounter
--- OUTSIDE RECORDS SUMMARY | 2025-06-29 06:45 | XMS_ITS | Encounter Summary ---
Author Organization [facility] tem Address [id number] [address] [place] [address] Care Team Providers Care Elevator Conductor Name Role Phone Merrick Rubi MD Primary Care Provider [phone] Reason for Visit * Reason Onset Date Comments Results 01/17/2021 Encounter Details Date Type Department Care Team (Late st Contact Info) Description 01/17/2021 Telephone [facility] [address] [place] [address] Linda Gonzalez, JUANPABLO Results Social [...] often do you attend chur ch or nondenominational services? More than 4 times per year [...] Answer Date Recorded Total Score 0 12/28/2020 [facility]at ional [facility] - [...] - 146 mmol/L 01/30/2021 2:48 PM EDT [facility] Potassium, Bld 4.2 3.5 - 5.0 mmol/L 01/30/2021 2:48 PM EDT [facility] Chloride 98 98 - 109 mmol/L 01/30/2021 2:48 PM EDT [facility] CO2 24 22 - 32 mmol/L 01/30/2021 2:48 PM EDT [facility] Anion gap 13 5 - 15 mmol/L 01/30/2021 2:48 PM EDT [facility] BUN 53(H) 5 - 27 mg/dL 01/30/2021 2:48 PM EDT [facility] Creatinine 1.90(H) 0.40 - 1.00 mg/dL 01/30/2021 2:48 PM EDT [facility] Comment:METHOD TRACEABLE TO IDMS STANDARD Glucose 222(H) 65 - 99 mg/dL 01/30/2021 2:48 PM EDT [facility] Calcium 9.7 8.5 - 10.5 mg/dL 01/30/2021 2:48 PM EDT [facility] GFR MDRD Non Af Amer 26(L) >59 ml/min/1.7 3sq.m 01/30/2021 2:48 PM EDT [facility] GFR MDRD Af Amer 31(L) >59 ml/min/1.7 3sq.m 01/30/2021 2:48 PM EDT [facility] Serum / Unknown 01/30/2021 8 :27 AM EDT 01/30/2021 8:28 AM EDT us Marie Garcia HOG RINGER-CUSTOMER ACCOUNT SPECIALIST LAB BLOOD ORDERABLES Final Result [facility] [address], [address] [place] [address] documented in this encounter Visit Diagnoses Diagnosis Paroxysmal atrial fibrillation ([facility]-H[facility])- Primary Atrial fibrillation Unstable angina ([facility]-HCC) Intermediate coronary syndrome documented in this encounter Additional Health Concerns Assessment Noted Time PHQ-9 Depression Total Score: 0 12/29/19 21 3:16 PM EDT documented as of this encounter Care Teams Elevator Conductor Relationship Specialty Start Date End Date Merrick Rubi MD PCP - General Family Medicine 10/20/20 documented as of this encounter
--- OUTSIDE RECORDS SUMMARY | 2025-06-29 06:45 | XMS_ITS | Encounter Summary ---
Author Organization [facility] Address [id number] [address] [place] [address] Care Team Providers Care Hrbp Name Role Phone Merrick Rubi MD Primary Care Provider [phone] Encounter Details Date Type Department Care Team (Late st Contact Info) Description 12/28/2020 Orders Only [facility] [address] [place] [phone] External, Scanning Provider Social History Tobacco Use [...] often do you attend chur ch or mormonism services? More than 4 times per year [...] Answer Date Recorded Total Score 0 12/28/2020 [facility] Occupat ional Health - Occupational [...] Recorded Do you need help finding a [facility] career center and/or a training [...] Multiple labs (11/18/2020) us Scanning Provider External HI IMAGING Final Result MANUALLY TRANSCRIBED RESULTS * Multiple labs (11/17/2020) us Scanning Provider External HI IMAGING Final Result Performing Organization Address [facility] Co de Phone Number MANUALLY TRANSCRIBED RESULTS documented in this encounter Visit Diagnoses Not on filedocumented in this encounter Additional Health Concerns Assessment Noted Time PHQ-9 Depression Total Score: 0 12/29/19 21 3:16 PM EDT documented as of this encounter Care Teams Hrbp Relationship Specialty Start Date End Date Merrick Rubi MD PCP - General Family Medicine 10/20/20 documented as of this encounter
--- OUTSIDE RECORDS SUMMARY | 2025-06-29 06:45 | XMS_ITS | Encounter Summary ---
Author Organization [facility] Address [address] [place] [address], [address] [place] [address] Care Team Providers Care Back Padder Name Role Phone Merrick Rubi MD Primary Care Provider [phone] Encounter Details Date Type Department Care Team (Late st Contact Info) Description 01/31/2016 Post-op Telephone [facility] General Surgery [address] [place], [place] [id number] Maryam Amador RN Social History Tobacco Use [...] on filedocumented in this encounter Care Teams Back Padder Relationship Specialty Start Date End Date Merrick Rubi MD [address] [place] [address] PCP - General 01/17/16 documented as of this encounter
--- OUTSIDE RECORDS SUMMARY | 2025-06-29 06:45 | XMS_ITS | Encounter Summary ---
Author Organization [facility] Address [address] [place] [address] Care Team Providers Care Records And Information Manager Name Role Phone Merrick Rubi MD Primary Care Provider [phone] Encounter Details Date Type Department Care Team (Late st Contact Info) Description 06/17/2025 Orders Only [facility] [address] [place] [address] ProviderSloane MD [address] [place], [place] [id number] Social History Tobacco Use Types Packs/Day Years [...] BUBBLE STUDY Routine 06/16/2025 9:20 AM EDT documented in this encounter Results * Complete Echo (TTE) w/wo Imaging Agent, Strain, 3D, Bubble Study (06/16/2025 9:20 AM EDT) Anatomical Region Laterality Modality Ultrasound us Historical Provider CV ECHO PROCEDURES Final Result documented in this encounter Visit Diagnoses Not on filedocumented in this encounter Care Teams Records And Information Manager Relationship Specialty Start Date End Date Merrick Rubi MD [address] [facility] [place] [address] PCP - General 01/22/24 documented as of this encounter
--- OUTSIDE RECORDS SUMMARY | 2025-06-29 06:45 | XMS_ITS | Encounter Summary ---
Author Organization [facility] Address [facility] [id number] [address] [place] [address] Care Team Providers Care Healthcare Customer Service Name Role Phone Merrick Rubi MD Primary Care Provider [phone] Encounter Details Date Type Department Care Team (Late st Contact Info) Description 01/10/2022 Orders Only [facility] [address] [place] [phone] External, Scanning Provider Social History Tobacco Use [...] any clubs o r organizations such as baptist groups, unions, fraternal [...] Recorded Do you need help finding a [facility] career center and/or a training program? No [...] Multiple labs (11/01/2021) us Scanning Provider External CT IMAGING Final Result Performing Organization Address City/[facility]/ZIP Co de Phone Number MANUALLY TRANSCRIBED RESULTS documented in this encounter Visit Diagnoses Not on filedocumented in this encounter Additional Health Concerns Assessment Noted Time PHQ-9 Depression Total Score: 0 12/29/19 21 3:16 PM EDT documented as of this encounter Care Teams Healthcare Customer Service Relationship Specialty Start Date End Date Merrick Rubi MD PCP - General Family Medicine 10/20/20 documented as of this encounter
--- OUTSIDE RECORDS SUMMARY | 2025-06-29 06:45 | XMS_ITS | Encounter Summary ---
Author Organization [facility] tem Address [facility] [id number] [address] [place] [address] Care Team Providers Care Unit Operator Name Role Phone Merrick Rubi MD Primary Care Provider [phone] Reason for Visit * Reason Onset Date Comments STAFF MESSAGE 01/03/2021 Encounter Details Date Type Department Care Team (Late st Contact Info) Description 01/03/2021 Telephone [facility] [address] [place] [phone] Fátima Hernandez MD [address] [place] [address] STAFF MESSAGE Social History Tobacco [...] often do you attend chur ch or hinduism services? More than 4 times per year 12/28/2020 Do you belong to any clubs o r organizations such as islam groups, unions, fraternal or athletic groups, or [...] encounter Miscellaneous Notes * Telephone Encounter - Neleima Son - 01/03/2021 12:34 PM EDT ----- [...] documented as of this encounter Care Teams Unit Operator Relationship Specialty Start Date End Date Merrick Rubi MD PCP - General Family Medicine 10/20/20 documented as of this encounter
[2025-06-29 07:35] LABS: Hematocrit 30.1 % (36.0-48.0); Hemoglobin 10.3 g/dL (12.0-16.0); Mean Corpuscular HGB Conc 34.2 g/dL (29.9-35.2); Mean Corpuscular Hemoglobin 31.3 pg (26.7-34.0); Mean Corpuscular Volume 91.5 fL (81.0-99.0); Platelet Count 220 10^3/uL (150-450); Red Blood Count 3.29 10^6/uL (4.20-5.40); White Blood Count 7.4 10^3/uL (4.0-11.0)
[2025-06-29 07:40] LABS: Glucose Urine UA NEGATIVE (NEGATIVE)
[2025-06-29 08:03] LABS: Cast Seen? NONE SEEN #/LPF (NONE SEEN); Crystals Seen? None Seen #/HPF (None Seen)
[2025-06-29 10:55] LABS: Protein Creatinine Ratio Urine 1.02; Total Protein Urine Random 148.7 mg/dL (<=11.9)
[2025-06-29 10:58] LABS: Albumin Level 3.6 g/dL (3.4-5.0); Anion Gap 13.7; Blood Urea Nitrogen 37.0 mg/dL (7.0-18.0); Calcium 9.5 mg/dL (8.5-10.1); Carbon Dioxide 26.4 mmol/L (21.0-32.0); Chloride 101 mmol/L (98-107); Estimated GFR (African America 26 (>=60 mL/min/1.73m^2); Estimated GFR (Non-African Ame 22 (>=60 mL/min/1.73m^2); Glucose 173 mg/dL (74-106); Magnesium 2.0 mg/dL (1.8-2.4); Potassium 4.1 mmol/L (3.5-5.1); Sodium 137 mmol/L (136-145); Uric Acid 4.8 mg/dL (2.6-6.0)
[2025-06-29 12:02] LABS: Iron 47.0 ug/dL (50.0-170.0); Percent Iron Saturation 22.4 %; Total Iron Binding Capacity 210.0 ug/dL (250.0-450.0)
[2025-06-29 12:23] LABS: Ferritin 542.0 ng/mL (8.0-252.0)
== END 2025-06-29 06:41 | disposition home or self-care (01) ==
LOC: LAB 06:42
PROVIDERS: PCP Family Medicine; Visit Provider Internal Medicine
DX: E78.5 Hyperlipidemia, unspecified (principal); E11.22 Type 2 diabetes mellitus with diabetic chronic kidney disease; R82.71 Bacteriuria; M10.9 Gout, unspecified; N25.81 Secondary hyperparathyroidism of renal origin; I12.9 Hypertensive chronic kidney disease with stage 1 through stage 4 chronic kidney disease, or unspecified chronic kidney disease
CPT/HCPCS: 36415; 80069; 81001; 82306; 82570; 82728; 83540; 83550; 83735; 83970; 84156; 84550; 85027

== ENCOUNTER 2025-07-28 07:52 | Outpatient (OUT) | payer MEDICARE, SELFPAY ==
--- OUTSIDE RECORDS SUMMARY | 2025-07-26 05:30 | XMS_ITS ---
Author Organization [facility] Address [address] [place] [address] Care Team Providers Care Asset Analyst Name Role Phone Jeff Rubi Primary Care Provider Allergies Allergen (clinical drug ingredient) Drug/Non Drug Allergy documented on EMR Reaction Allergy Type Onset Date Status amoxicillin / clavulanate Augmentin Unknown Drug Aller gy Activesulfamethoxazole / trimethoprimBactrimUnknownDrug AllergyActivedoxazosin CarduraUnknownDrug AllergyActiveamlodipineNorvascUnknownDrug AllergyActive Results Component Value Reference Range Notes GLUCOSE - IN OFFICE Reviewed date:07/26/2025 09:31:04 AM Interpretation: Performing Lab: Notes/Report: Glucose 255 74 - 106 MG/DL REASON FOR VISIT flu shot, blurred vision Medications Medication SIG (Take, Route, Frequency, Duration) Notes Start Date End Date Status Accu-Chek Holly Plus w/Device as directed ActiveMacrobid 100 MG 1 capsule with food Orally daily; Duration: 30 days start after finishing cipro 5ActiveDiflucan 100 MG1 tablet Orally daily; Duration: 10 days 5ActiveTresiba FlexTouch 100 UNIT/ML30 units Subcutaneous Twice Daily ActiveSynvisc One 48 MG/6MLInject Intra-articular In right knee; Duration: 180 days5ActivepredniSONE 20 MG3 tablets Orally Once a day; Duration: 5 days5ActivePantoprazole Sodium 40 mgTAKE 1 TABLET BY MOUTH DAILY; Duration: 90ActiveOneTouch Ultra Testtest blood glucose daily; Duration: 90 days ActiveOneTouch Ultra BlueActiveOneTouch Ultra 2ActiveNovoLOG FlexPen 100 UNIT/ML 12 in morning, 16 at lunch, 22 at supper SubcutaneousActiveLipitor 80 MG1 tablet Orally Once a day; Duration: 90 daysActiveNitroglycerin 0.4 MGas directed SublingualPRNActiveMagnesium Oxide 400 MG1 tablet Orally three times dailyActive Lasix 20 MG1 tablet Orally Once a dayActiveLevothyroxine Sodium 100 mcgTAKE 1 TABLET BY MOUTH IN THE MORNING ON AN EMPTY STOMACH; Duration: 90Active Ciprofloxacin HCl 500 MG1 tablet Orally every 12 hrs; Duration: 10 days 5ActiveLiothyronine Sodium 5 mcgTake 1 tablet orally once daily; Duration: 30 daysActiveLancets Super ThinActiveFerrous Sulfate 325 (65 Fe) MG1 tablet Orally Twice DailyActivecloNIDine HCl 0.1 MG 1 tablet every four hours as needed Orally Q4; Duration: 30 days As needed ActiveIsosorbide Mononitrate ER 120 MG1 tablet Oral once daily; Duration: 30 daysActivehydrALAZINE HCl 50 MG1 tablet with food Orally Three times a dayActive Aspirin 81 81 MG1 tablet Orally Once a dayActiveAllopurinol 300 MG1 tablet Orally Once a day; Duration: 30 daysActiveCarvedilol 25 mgTAKE 1 TABLET BY MOUTH TWICE DAILY (7AM and 7PM) WITH FOOD; Duration: 30ActiveBenzonatate 200 MG1 capsule Orally Three times a day; Duration: 7 days5Active Immunizations Vaccine Route Administration Date Status Comme nts Flu, Fluad (64609) 65 yrs and older, single-dose syringe () IM Intramuscular 07/26/2025 Administered Social History Tobacco Use: Social History Observation Description Date Details (start date - stop date) Never Smoker NA - NA Tobacco Use/Smoking Question Answer Notes Patient is a nonsmoker Vital Signs Height 66 in 07/26/2025 Blood pressure systolic 118 mm Hg 07/26/20 25 Blood pressure diastolic 50 mm Hg 025 Encounters Encounter Location Date Provider Diagnosis [facility] [address] [place] [address] 07/26/2025 Jeff Rubi Acute UTI N39.0 ; Encounter for immunization Z23 and Chronic kidney disease, stage 4 (severe) N18.4 Assessments Encounter Date Diagnosis (ICD Code) Assessment Notes Treatment Notes Treatment Clinical Notes Section Notes 07/26/2025 Acute UTI (ICD-10 - N39.0) 07/26/2025Encounter for immunization (ICD-10 - Z23)07/26/2025hronic kidney disease, stage 4 (severe) (ICD-10 - N18.4) Plan Of Treatment Medication Medication Name Sig Start Date Stop Date Notes Macrobid 100 MG 1 capsule with food Orally daily; Dura tion: 30 days 07/26/2025 Cefdinir 300 MG2 capsule Orally once a day06/08/2025Diflucan 100 MG1 tablet Orally daily; Duration: 10 days07/26/2025levoFLOXacin 750 MG1 tablet Orally Once a day06/08/2025iprofloxacin HCl 500 MG1 tablet Orally every 12 hrs; Duration: 10 days07/26/2025Pending Test Test Name Order Date US KIDNEYS 07/26/2025 US KIDNEYS BLADDER 07/26/2025 Progress Notes * Landry ROBINwilbertoeDOB:1945 (79 yo F)Acc No.[id number]:07/26/2025 UNLOCKED PROGRESS NOTE Progress Note Patient: Mercedez MEAD :?Merrick Rubi ([facility] MDDOB:1945???Age: 79 Y???Sex:FemaleDate:07/26/2025Phone:[phone]:[address] [place], [place] [phone] In:09:06 AM ESTCheck Out:09:36 AM EST Subjective: * Chief Complaints: * 1 . Flu shot, blurred vision. * ROS: ???EENT:?hearing changes?denies.?visual changes?denies. non-healing mouth sores?denies.?swollen glands or neck lumps?denies.?hoarseness?denies.?sore throat?denies.?difficulty swallowing?denies.?nose bleeds?denies.?nasal congestion?denies.?ear ache?denies.?ear discharge denies.?ringing in ears?denies.?light sensitivity?denies.?eye pain?denies.?blurring?denies.?eye irritation?denies.?double vision?denies. vision loss?denies.?General/Constitutional:?Sweats:?Denies.?Fatigue?denies.?Sleep proble ms?denies.?Anorexia?denies.?Malaise?denies.?Weight loss?denies. Fatigue or Weakness?denies.?Fever or Chills?denies.?Cardiovascular:?Shortness of Breath w/lying flat?denies.?Lightheadedne ss/dizziness?denies.?Chest tightness/ heavy pressure?denies.?Swelling of legs, a nkles, or feet?denies.?Waking up with shortness of breath?denies.?Chest pain&#16 0;denies.?Palpitations?denies.?Weight gain?denies.?Respiratory:?Chronic or frequent cough?denies.?Coughing up blood&#1 60;denies.?Difficulty breathing?denies.?Productive cough?denies.?Snoring&#1 60;denies.?Shortness of breath that awakens from sleep (PND)?denies.?Chest pain? denies.?Sputum production?denies.?Wheezing?denies.?Musculoskeletal:?Joint pain?denies.?Joint Fluid?denies.?Backpain?denies.?Knee pain?denies.?Neck pain?denies.?Joint Stiffness?denies.?Muscle cramps?denies.?Weakness of muscles?denies.?Arthritis?denies.?Muscle aches?denies.?Pain in shoulder(s)?denies.?Swollen joints?denies.? * Medical History: A cute bronchitis, At [...] Family History: F ather: , diagnosed with Cancer, Diabetes, Hypertension. M other: , diagnosed with Cancer, Diabetes, Hypertension. B rother(s): alive, open heart surgery,, diagnosed with Heart Disease. S ister(s): alive, diagnosed with Heart Disease. S on(s): alive. D ikerthonger(s): alive. 5 brother(s) , 2 sister(s) . 1 son(s) , 3 daughter(s) . . * Social History: ???Tobacco Use:?Tobacco Use/Smoking?Patient is a?nonsmoker * Medications: T aking Accu-Chek Holly Plus(Blood Glucose Monitoring Suppl) w/Device Kit as directed , Taking Allopurinol 300 MG Tablet 1 tablet Orally Once a day , Taking Aspirin 81(Aspirin) 81 MG Tablet Delayed Release 1 tablet Orally Once a day , Taking Benzonatate 200 MG Capsule 1 capsule Orally Three times a day , Taking Carvedilol 25 mg Tablet TAKE 1 TABLET BY MOUTH TWICE DAILY (7AM and 7PM) WITH FOOD , Taking Cefdinir 300 MG Capsule 2 capsule Orally once a day , Taking cloNIDine HCl 0.1 MG Tablet 1 tablet every four hours as needed Orally Q4 As needed, Taking Ferrous Sulfate 325 (65 Fe) MG [...] tablet Orally Once a day , Taking levoFLOXacin 750 MG Tablet 1 tablet Orally Once a day , Taking Levothyroxine Sodium 100 mcg Tablet TAKE 1 TABLET BY MOUTH IN THE MORNING ON AN EMPTY STOMACH , Taking Liothyronine Sodium 5 mcg Tablet Take 1 tablet orally once daily , Taking Lipitor(Atorvastatin Calcium) 80 MG Tablet 1 tablet Orally Once a day , Taking Magnesium Oxide 400 MG Tablet [...] 1 TABLET BY MOUTH DAILY , Taking predniSONE 20 MG Tablet 3 tablets Orally Once a day , Taking Synvisc One(Hylan G-F 20) 48 MG/6ML Solution Prefilled Syringe Inject Intra-articular In right knee , Taking Tresiba FlexTouch(Insulin Degludec) 100 UNIT/ML Solution Pen-injector 30 units Subcutaneous Twice Daily , Medication List reviewed and reconciled with the patient * Allergies: N orvasc, Cardura, Augmentin, Bactrim. Objective: * Vitals: H t: 66 in, BP: 112/50 mm Hg,118/50mm Hg, Ht-cm: 167.64 cm. * Examination: ???Physical Exam: ?GENERAL:?well developed, well nourished, in no acute distress.?HEAD:?normocephalic/atraumatic.?EYES:?pupils equal, round and reactive to light, conjunctivae and sclerae normal.?EARS:?no deformity or lesion of external ear, canals and TM appear normal bilaterally, TM's intact, not inflamed with normal light reflex, hearing grossly normal to conversational speech.?NOSE:?no deformity, discharge, inflammation, or lesions. ?MOUTH:?mucous membranes moist, normal oropharynx and posterior pharynx without lesions or exudates, tongue normal, dentition normal.?NECK:?neck supple, no masses or palpable cervical nodes, trachea midline, thyroid without nodules, masses, tenderness, or enlargement.?CHEST:?no chest wall deformity, no chest wall tenderness. ?LUNGS:?normal respiratory effort and clear to auscultation, no wheezes, rales, or rhonchi, good air exchange.?CARDIO:?regular rate and rhythm, normal S1 and S2, nor murmur, rub, or gallop.?PULSES:?normal capillary refill.?ABDOMEN:?soft, non-distended, non-tender, no masses.?MUSCULOSKELETAL:?no deformity or scoliosis noted, normal range of motion, joints normal, no erythema, edema, effusion, or ecchymosis.?EXTREMITY:?no clubbing, cyanosis, edema, or deformity withnormal ROM in both upper and lower bilateral extremities.?NEUROLOGIC:?grossly normal.?SKIN:?no rashes, ulcerations, or suspicious lesions.?LYMPH NODES:?no cervical adenopathy, nodes normal.?MENTAL STATUS:?alert and oriented x3, normal mood and affect.? Assessment: * Assessment: 1.?Acute UTI - N39.0 (Primary)???2.?Encounter for immunization - Z23?& #160;?3.?Chronic kidney disease, stage 4 (severe) - N18.4??? Plan: * Treatment: ?LAB: GLUCOSE - IN OFFICE (Collection Date & Time - 07/26/2025)2.?Chronic kidney disease, stage 4 (severe)?Imaging: US KIDNEYS* With PVR ?Imaging: US KIDNEYS BLADDER* With PVR 3.?Others? Stop Cefdinir Capsule, 300 MG, 2 capsule, Orally, once a day;?Stop levoFLOXacin Tablet, 750 MG, 1 tablet, Orally, Once a day;?Start Ciprofloxacin HCl Tablet, 500 MG, 1 tablet, Orally, every12 hrs, 10 days, 20 Tablet;?Start Macrobid Capsule, 100 MG, 1 capsule with food, Orally, dailystart after finishing cipro, 30 days, 30 Capsule, Refills 11;?Start Diflucan Tablet, 100 MG, 1tablet, Orally, daily, 10 days, 10 Tablet, Refills 1.?? * Immunizations: Flu, Fluad (15434) 65 yrs and older, single-dose syringe () : 0.5 mL (Route: Intramuscular) given by CÉSAR Pride on Right Deltoid (Encounter for immunization) * Labs: * L ab: GLUCOSE - IN OFFICE (Collection Date & Time - 07/26/2025) ?ValueReference Range?[id number] - 106 MG/DL * Procedure Codes: 9 0653 FLU VACCINE ADJUVANT IM, G0008 ADMIN. INFLUENZA, 46788 GLUCOSE;BLOOD,REGNT.STRIP * * Electronic signature of Jeff Rubi MD, [id number] on 07/28/2025 at 07:55 AM EDT Sign off status: PendingVisit Status:?CHK (Check Out) * Provider: Ian Rubi ([facility])MD Date: 1 Generated for Printing/Faxing/eTransmitting on:?07/28/2025 07:55 AM EDT History and Physical Notes * Examination CategorySub-CategoryDetailNotesCategory NotesPhysical ExamGENERAL:well developed, well nourished, in no acute distressHEAD:normocephalic/atraumatic EYES:pupils equal, round and reactive to light, conjunctivae and sclerae normal EARS:no deformity or lesion of external ear, canals and TM appear normal bilaterally, TM's intact, not inflamed with normal light reflex, hearing grossly normal to conversational speechNOSE:no deformity, discharge, inflammation, or lesionsMOUTH:mucous membranes moist, normal oropharynx and posterior pharynx without lesions or exudates, tonguenormal, dentition normalNECK:neck supple, no masses or palpable cervical nodes, trachea midline, thyroid without nodules, masses, tenderness, or enlargementCHEST:no chest wall deformity, no chest wall tendernessLUNGS:normal respiratory effort and clear to auscultation, no wheezes, rales, or rhonchi, good air exchangeCARDIO:regular rate and rhythm, normal S1 and S2, nor murmur, rub, or gallopPULSES:normal capillary refillABDOMEN:soft, non-distended, non-tender, no massesRECTAL:MUSCULOSKELETAL:no deformity or scoliosis noted, normal range of motion, joints normal, no erythema, edema, effusion, or ecchymosisEXTREMITY:no clubbing, cyanosis, edema, or deformity with normal ROM in both upper and lower bilateral extremitiesNEUROLOGIC:grossly normalSKIN:no rashes, ulcerations, or suspicious lesionsLYMPH NODES:no cervical adenopathy, nodes normalMENTAL STATUS:alert and oriented x3, normal mood and affect
--- OUTSIDE RECORDS SUMMARY | 2025-07-28 07:55 | XMS_ITS | Clinical Summary ---
Author Organization [facility] tem Address [facility] [id number] [address] [place] [address] Care Team Providers Care Wirer Name Role Phone Merrick Rubi MD Primary Care Provider [phone] Allergies Active AllergyReactionsCriticalityNoted QiejTdfxpxlzEqvswziihcXemeKokt16/22/2005 NORVASC Amoxicillin-Pot NltfbadclwxXxwyTxb46/17/2021 AUGMENTIN Slzokrhsv38/17/2021Iodinated Contrast Media11/23/2020 Sulfamethoxazole-KnxrtsfuskubRtrvAcv98/17/2021 BACTRIM Medications MedicationSigDispense QuantityRefillsLast FilledStart DateEnd DateStatus ferrous sulfate 325 (65 FE) mg tablet Take 1 tablet (325 mg total) by mouth in the morning and 1 tablet (325 mg total) before bedtime.Active insulin aspart (NOVOLOG FLEXPEN U-100 INSULIN SUBQ) Inject under the skin. 10 UNITS BEFORE BREAKFAST, 15 UNITS BEFORE LUNCH, 20 UNITS BEFORE DINNER Active levothyroxine (SYNTHROID, LEVOTHROID) 125 MCG tablet Take 1 tablet (125 mcg total) by mouth in the morning.Active insulin detemir U-100 (LEVEMIR) 100 unit/mL injection Inject 30 units in the morning and 25 units at night - closely monitor blood sugars and follow up with your PCP in 1-2 weeks 1 Box ctive Additional Information Patient taking differently: Inject 50 units in the morning and 50 units at night - closely monitor blood sugars and follow up with your PCP in 1-2 weeks, Reported on 01/15/2022 acetaminophen (TYLENOL) 500 mg tablet Take 1 tablet (500 mg total) by mouth every 6 (six) hours as needed for pain. Active aspirin 81 mg Indications:Hypertensive urgency,Shortness of breath,H/O four vessel coronary artery bypass graft,Atherosclerosis of [place] coronary artery of [place] heart without angina pectoris,Paroxysmal atrial fibrillation (CMS-HCC),Localized edema Take 1 tablet (81 mg total) by mouth daily. 90 tablet ctive pantoprazole (PROTONIX) 40 mg EC tablet Take 1 tablet (40 mg total) by mouth in the morning.12/19/2020ctive allopurinoL (ZYLOPRIM) 300 mg tablet Take 1 tablet (300 mg total) by mouth in the morning.Active liothyronine (CYTOMEL) 5 MCG tablet Take 2 tablets (10 mcg total) by mouth in the morning.12/05/2021ctive lisinopriL (PRINIVIL,ZESTRIL) 20 mg tablet Take 1 tablet (20 mg total) by mouth in the morning.01/17/2024ctive carvediloL (COREG) 25 mg tablet Indications:Paroxysmal atrial fibrillation (CMS-HCC),H/O four vessel coronary artery bypass graft,Hypertensive urgency,Shortness of breath,Localized edemaTake 2 tablets (50 mg total) by mouth in the morning and 2 tablets (50 mg total) before bedtime. 180 tablet ctive isosorbide mononitrate (IMDUR) 30 mg 24 hr tablet Take 1 tablet (30 mg total) by mouth daily. 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 gjdacovj94/12/2024Other qrwcckuszzclyh67/11/2022Class 1 obesity in adult2Obesity (BMI 30-39.9) 08/05/2021Essential rmxoabzomyfn60/05/2021Obesity (BMI 30-39.9)01/11/2021H/O four vessel coronary artery bypass graft01/11/2021aroxysmal atrial fibrillation 01/11/2021therosclerosis of [place] coronary artery of [place] heart without angina hwonnuzy84/07/2021Unstable rydsri3812/28/2020iabetes mellitusHypertensive urgencyArthritisDyspneaOther forms of angina pectoris Immunizations ImmunizationAdministration DatesNext DueInfluenza High Dose Preservative Free IM 07/08/2017,07/25/2016,07/11/2015Influenza, Im Trivalent Zmahrhwmtcin80/10/2014, 07/10/2013Influenza, Trivalent, Ukryfhoctq11/12/2020,07/22/2019,07/14/2018 Influenza, Bnuxvkiqtwc05/02/2012,07/11/2011,08/15/2010,07/26/2009,08/04/2008, 08/13/2007,08/11/2004,08/09/2003Pneumococcal Conjugate 13-Jszift4807/15/2017 Pneumococcal Ydwddvlfnhpuof04/02/2012,08/09/2003 Family History Medical HistoryRelationNameCommentsHeart attackBrother 1Heart attackBrother 2 CancerFatherDiabetesFatherDiabetesMotherHeart attackMotherHeart failureMother HyperlipidemiaMotherHypertensionMotherHeart attackSisterRelationNameStatus CommentsBrother 1Brother 2FatherDeceasedMotherDeceasedSister Social History Tobacco UseTypesPacks/DayYears UsedDateSmoking Tobacco: FormerCigarettesQuit: 10/07/1969mokeless Tobacco: NeverAlcohol UseStandard Drinks/WeekCommentsNot Currently0 (1 standard drink = 0.6 oz pure alcohol)Social Connection and Isolation PanelAnswerDate RecordedIn a typical week, how many times do you talk on the phone with family, friends, or neighbors?More than three times a week 12/28/2020How often do you get together with friends or relatives?More than three times a week12/28/2020How often do you attend christian or catholic services?More than 4 times per year1Do you belong to any clubs or organizations such as christian groups, unions, fraternal or athletic groups, or school groups?No12/28/2020How often do you attend meetings of the clubs or organizations you belong to?Never12/28/2020re you , , , , never , or living with a partner?Ezexgsg0012/28/2020Overall Financial Resource Strain (CARDIA)AnswerDate RecordedHow hard is it for you to pay for the very basics like food, housing, medical care, and heating?Not hard at all12/28/2020HQ-2AnswerDate RecordedTotal Ayuxv423[facility] [place] [facility] - Occupational Stress QuestionnaireAnswerDate RecordedDo you feel stress - tense, restless, nervous, or anxious, or unable to sleep at night because yourmind is troubled all the time - these days?Not at all 12/28/2020xercise Vital SignAnswerDate RecordedOn average, how many days per week do you engage in moderate to strenuous exercise (like a brisk walk)?0 days 12/28/2020On average, how many minutes do you engage in exercise at this level?0 min12/28/2020RAPARE - TransportationAnswerDate RecordedIn the past 12 months, has lack of transportation kept you from medical appointments or from getting medications?No12/28/2020In the past 12 months, has lack of transportation kept you from meetings, work, or from getting things needed for daily living?No 12/28/2020hildcareAnswerDate RecordedDo problems getting child's nurse make it difficult for you to work or study?No12/28/2020mploymentAnswerDate RecordedDo you need help finding a local career center and/or a training program?No 12/28/2020Hunger ScreeningAnswerDate RecordedWithin the past 12 months we worried whether our food would run out before we got money to buy more.Never True01/17/2024Within the past 12 months the food we bought just didn't last and we didn't have money to get more.Never True01/17/2024urpose - LifeAnswerDate RecordedI have a purpose and direction in my life.Agree1 CommentsNoSex and Gender InformationValueDate RecordedSex Assigned at BirthNot on fileLegal RojFkmlvw22/15/2017 2:19 PM EDTGender IdentityNot on fileSexual OrientationNot on file Last Filed Vital Signs Vital SignReadingTime TakenCommentsBlood Bynczdue013/7004 12:56 PM EDT Vquyb4964/12/2024 12:56 PM JXDXzsruljhlwj45.7 ??C (98.1 ??F)01/18/2021 9:19 AM EDTRespiratory Zwqp117101/18/2021 11:30 AM EDTOxygen Logbcjjdjr02%01/17/2024 12:56 PM EDTInhaled Oxygen Concentration--Zyoxkl02.7 kg (189 lb)01/17/2024 12:56 PM RTAPyqpcv403.9 cm (5' 6.5 )01/17/2024 12:56 PM EDTBody Mass Index30.05001/17/2024 12:56 PM EDT Plan of Treatment Health MaintenanceDue DateLast DoneCommentsDepression Qsugyyliz42/10/1957 DTaP,Tdap and Td Vaccines (1 - Tdap)12/15/1963Zoster (Shingles) Vaccine (1 of 2) 1994Fall Risk Hztjvomyw90/10/2010Tobacco Kdapffsiy99 COVID-19 Vaccine ( season)/, 12/13/2020Influenza Ymilsum76/09/2020, 07/22/2019, 07/14/2018, Additional history exists Goals GoalPatient Goal TypeAssociated ProblemsRecent ProgressPatient-Stated?Author <enter goal here> Dione Pinzon LSW Note: Evaluation of progress towards goal: return home with homecare and support from [facility], children and grandchildren Medical Devices Not on file Insurance * Guarantor: Allison Robin TypeRelation to PatientDate of BirthPhone Billing AddressPersonal/DmnngbKfqs75/10/1946 [address] [address] Advance Directives * Full Code (Latest Code Status on File) Date ActivatedDate InactivatedComments12/28/2020 2:33 PM01/03/2021 7:38 PM Care Teams Team MemberRelationshipSpecialtyStart DateEnd Date Merrick Rubi MD PCP - GeneralFamily Medicine10/20/20
--- OUTSIDE RECORDS SUMMARY | 2025-07-28 07:55 | XMS_ITS | Clinical Summary ---
Author Organization [facility] Address [address] [place] [address] Care Team Providers Care Power Ballast Machine Operator Name Role Phone Merrick Rubi MD Primary Care Provider [phone] Allergies Active AllergyReactionsCriticalityNoted VxxrGrsedxgcFusqhxkevcKebphoo78/06/2023 XjsrssnvxbtOstraxf10/06/2023moxicillin-Pot ZpwjaufutglHyilpon81/06/2023 HehjxdlojEsloyzq82/06/2023Iodinated Contrast DachnUcrgt90/09/2024 TfohttyypzixozwjFczpbik00/06/2891OwvhnehhtsapYbxkkds29/06/2023 Medications MedicationSigDispense QuantityRefillsLast FilledStart DateEnd DateStatus minocycline 100 MG capsule 1 capsule every 12 (twelve) hoursActive lisinopril 40 MG tablet Active hydrocortisone (Anusol-HC) 25 MG suppository Active allopurinol (Zyloprim) 100 MG tablet Active PANTOPRAZOLE SODIUM PO Active MAGNESIUM PO Active HYDROCHLOROTHIAZIDE PO Active labetalol (Normodyne) 200 MG tablet Take 2 tablets by mouth in the morning and 2 tablets before bedtime.Active carvedilol (Coreg) 25 MG tablet Take 1 tablet by mouth in the morning and 1 tablet in the evening. Take with meals.Active atorvastatin (Lipitor) 80 MG tablet Take 1 tablet by mouth at bedtimeActive aspirin 81 MG EC tablet Take 81 mg by mouth DailyActive vgjucnisnfnj-rgbb-btulefcz-folic acid (Centrum) chewable tablet Chew 1 tablet DailyActive betamethasone dipropionate 0.05 % cream Indications:Granuloma annulareApply to affected areas, up to twice a day when flared, do not use one the face, groin, or underarms, 30 day supply 45 g ctive insulin aspart (NovoLOG FLEXPEN) 100 UNIT/ML pen Inject 10-15 Units under the skin in the morning and 10-15 Units at noon and 10- 15 Units in the evening. Inject with meals. 10-12-15 according to meal size (plus sliding scale ISS #2) expect up to 80Units total daily use.06/15/2024 Active levothyroxine (Synthroid, Levoxyl) 150 MCG tablet Take 2 tablets by mouth in the morning. Take before meals.Active liothyronine (Cytomel) 5 MCG tablet Take 1 tablet by mouth DailyActive alendronate (Fosamax) 70 MG tablet Take 1 tablet by mouth every 7 (seven) days Take in the morning with a full glass of water, on an empty stomach, and do not take anything else by mouth or lie down for the next 30 min.Active ranolazine (Ranexa) 500 MG 12 hr tablet Take 1 tablet by mouth in the morning and 1 tablet before bedtime. Do not crush, chew, or split.Active diclofenac (Voltaren) 75 MG EC tablet Take 1 tablet by mouth in the morning and 1 tablet before bedtime. Do not crush, chew, or split.Active cloNIDine (Catapres) 0.1 MG tablet Take 0.1 mg by mouth if needed for high blood pressureActive Active Problems No known active problems Encounters DateTypeDepartmentCare DtqzTlbcktlhmge09/24/2025Orders Only [facility] [address] [place] [address] Lorraine Pope MD 06/29/2025Orders Only [facility] [address] [place] [address] Lorraine Pope MD 06/14/2025 10:10 AM EDTOffice Visit [facility] [address] [place] [address] Lorraine Pope MD Type 2 diabetes mellitus with hyperglycemia, with long-term 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 (HCC) (Primary Dx); Vitamin D deficiency; Microalbuminuria; Hyperlipemia, mixed ; Insulin long-term use (HCC); Primary hypertension ; Pema's disease ; Encounter for dietary consultation; Chronic renal disease, stage IV (HCC)5Bamboo flowsheet [facility] [address] [place] [address] Lorraine Pope MD from Last 3 Months Immunizations ImmunizationAdministration DatesNext DueInfluenza, High Dose Seasonal, Preservative Free07/08/2017,07/25/2016,07/11/2015Influenza, Unspecified 08/08/2012,07/11/2011,08/15/2010,07/26/2009,08/04/2008,08/13/2007,08/11/2004, 08/09/2003Influenza, injectable, quadrivalent, preservative free07/20/2019 Influenza, seasonal, odvwvzdcev53/10/2014,07/10/2013Influenza, trivalent, apwejoxvsm22/12/2020,07/22/2019,07/14/2018Pneumococcal Conjugate PCV 13 07/15/2017Pneumococcal Polysaccharide ESZR000710/08/2011,08/09/2003Unknown outside iuokulzxtzke47/04/2022,07/20/2021 Family History Medical HistoryRelationNameCommentsCancerFatherHeart diseaseMothermmSister MelanomaNeg HxRelationNameStatusCommentsDaughterx 2AliveFatherDeceasedMother DeceasedSisterSonx 1Alive Social History Tobacco UseTypesPacks/DayYears UsedDateSmoking Tobacco: FormerCigarettes Smokeless Tobacco: Never Tobacco Cessation:Counseling Given: Not Answered Alcohol UseStandard Drinks/WeekCommentsNot Asked0 (1 standard drink = 0.6 oz pure alcohol)caffeine intake: 1-2 cups per dayCommentsUnknownSex and Gender InformationValueDate RecordedSex Assigned at BirthNot on fileLegal Sex Yjgvrq9112/19/2022 6:48 PM EDTGender IdentityNot on fileSexual OrientationNot on file Last Filed Vital Signs Vital SignReadingTime TakenCommentsBlood Lgtprnrg681/7409 10:11 AM EDT Atowv8277 10:11 AM EDTTemperature--Respiratory Hami380906/14/2025 10:11 AM EDTOxygen Ojijtxlfze13%06/14/2025 10:11 AM EDTInhaled Oxygen Concentration-- Pbtfqd10.6 kg (191 lb)06/14/2025 10:11 AM XJWObbhzu804.8 cm (5' 4.5 )06/14/2025 10:11 AM EDTBody Mass Index32.28006/14/2025 10:11 AM EDT Plan of Treatment DateTypeDepartmentCare Team (Latest Contact Info)Qmzetvzpjit60/08/2025 10:50 AM ESTOffice Visit [facility] [address] [place] [address] Lorraine Pope MD [address] [place] [address] 03/23/2026 10:00 AM EDTOffice Visit [facility] [address] [place] [address] aLvonne Longoria MD [address] [place] [address] Health MaintenanceDue DateLast DoneCommentsInfluenza Vaccine (#1)06/07/2025 07/11/2023, 07/10/2022, 07/18/2020, Additional history existsPneumococcal Vaccine: 65+ BhtrcYubrbyoqk10/09/2017, 08/08/2012, 08/09/2003 Procedures Procedure NamePriorityDate/TimeAssociated DiagnosisCommentsPTH, INTACT WITHOUT LISQLFXYcilqnk71/24/2025 11:27 AM HOGDERGRWZVUodyfqr89/23/2025 1:34 PM EDT VITAMIN D, 25-LGFLCZQMvngemt49/23/2025 1:34 PM EDTIRON, ZOYUJXauiziv43/23/2025 1:34 PM EDTBASIC METABOLIC PANEL WITH ANION ZMEVabbpzo73/23/2025 11:36 AM EDT MICROALBUMIN / CREATININE URINE UVPUVKqlufmt58/23/2025 11:36 AM EDTURINALYSIS, COMPLETE W/SSPRODNXAWUihygvp90/23/2025 10:37 AM FKBIMMVqwsddg44/23/2025 8:07 AM EDTPOCT GLYCOSYLATED HEMOGLOBIN (HGB A1C)Ybazwdp8606/14/2025 10:15 AM EDT Type 2 diabetes mellitus with hyperglycemia, with long-term 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 ([facility]) POCT HOFYPMLMfpdljf66/08/2025 10:15 AM EDT Type 2 diabetes mellitus with hyperglycemia, with long-term 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 ([facility]) from Last 3 Months Results * PTH, intact (06/30/2025 11:27 AM EDT)Specimen (Source)Anatomical Location / LateralityCollection Method / VolumeCollection TimeReceived TimeBloodVenous blood specimen / Unknown Narrative Authorizing ProviderResult TypeResult StatusLifepoint Hospitals Niko SnaptLAB BLOOD ORDERABLESFinal Result * VITAMIN D, 25-HYDROXY (06/29/2025 1:34 PM EDT) Narrative Authorizing ProviderResult TypeResult [facility] Niko SnaptLAB BLOOD ORDERABLESFinal Result * Iron (06/29/2025 1:34 PM EDT)Specimen (Source)Anatomical Location / Laterality Collection Method / VolumeCollection TimeReceived TimeBloodVenous blood specimen / Unknown Narrative Authorizing ProviderResult TypeResult StatusLifep[facility] Hospitals Niko SnaptLAB BLOOD ORDERABLESFinal Result * Ferritin (06/29/2025 1:34 PM EDT)Specimen (Source)Anatomical Location / LateralityCollection Method / VolumeCollection TimeReceived TimeBloodVenous blood specimen / Unknown Narrative Authorizing ProviderResult TypeResult StatusLifepoint Hospitals Niko SnaptLAB BLOOD ORDERABLESFinal Result * BASIC METABOLIC PANEL WITH ANION GAP (06/29/2025 11:36 AM EDT) Narrative Authorizing ProviderResult TypeResult [facility] Healthcarefrancisco Kelsie [facility] BLOOD ORDERABLESFinal Result * Microalbumin / creatinine urine ratio (06/29/2025 11:36 AM EDT)Specimen (Source)Anatomical Location / LateralityCollection Method / VolumeCollection TimeReceived TimeUrineUrine specimen obtained by clean catch procedure / Unknown Narrative Authorizing ProviderResult TypeResult [facility] Healthcarefrancisco [facility]LAB URINE ORDERABLESFinal Result * Urinalysis with microscopic (06/29/2025 10:37 AM EDT)Specimen (Source) Anatomical Location / LateralityCollection Method / VolumeCollection Time Received TimeUrineUrine specimen obtained by clean catch procedure / Unknown Narrative Authorizing ProviderResult TypeResult [facility] Healthcarefrancisco [facility] CenterNiko MDLAB URINE ORDERABLESFinal Result * CBC (06/29/2025 8:07 AM EDT)Specimen (Source)Anatomical Location / Laterality Collection Method / VolumeCollection TimeReceived TimeBloodVenous blood specimen / Unknown Narrative Authorizing ProviderResult TypeResult [facility] Healthcarefrancisco Kelsie NikoMer[facility] BLOOD ORDERABLESFinal Result * POCT glycosylated hemoglobin (Hb A1C) docked device (06/14/2025 10:15 AM EDT) ComponentValueRef RangeTest MethodAnalysis TimePerformed AtPathologist SignatureHemoglobin A1C7.6Specimen (Source)Anatomical Location / Laterality Collection Method / VolumeCollection TimeReceived TimeBloodVenous blood specimen / Trycoja4106/14/2025 10:15 AM EDT Narrative Authorizing ProviderResult TypeResult StatusMercyone [facility] MDPOINT OF CARE TEST ENTER/EDIT ORDERABLESFinal Result * POCT glucose manually resulted (06/14/2025 10:15 AM EDT)ComponentValueRef RangeTest MethodAnalysis TimePerformed AtPathologist SignatureGlucose Blood, UDQ273yc/dLSpecimen (Source)Anatomical Location / LateralityCollection Method / VolumeCollection TimeReceived TimeBloodCapillary blood specimen / Unknown 06/14/2025 10:15 AM EDT Narrative Authorizing ProviderResult TypeResult StatusBenfederica Kelsie Pope MDPOINT OF CARE TEST ENTER/EDIT ORDERABLESFinal Result from Last 3 Months Insurance Care Teams Team MemberRelationshipSpecialtyStart DateEnd Date Merrick Rubi MD PCP - GeneralFamily Medicine10/22/23
--- OUTSIDE RECORDS SUMMARY | 2025-07-28 07:55 | XMS_ITS | Clinical Summary ---
Author Organization [facility] Address [address] [place] [address] Care Team Providers Care Software Quality Specialist Name Role Phone Merrick Rubi MD Primary Care Provider [phone] Allergies Active AllergyReactionsCriticalityNoted DateCommentsAmlodipineOther,Rash,Unknown High03/28/2005 NORVASC Amoxicillin-Pot ClavulanateOther,Rash,DimkvekNwx36/17/2021 AUGMENTIN QwdadkvgbDedpu50/17/2021Iodinated Contrast FdkmjUksmx04/17/2021ulfamethoxazole Other03/12/2023Sulfamethoxazole-TrimethoprimHives,Other,Rash,UnknownLow 08/04/2015 BACTRIM Medications MedicationSigDispense QuantityRefillsLast FilledStart DateEnd DateStatus aspirin 81 mg EC tablet Take 81 mg by mouth in the morning.01/11/2021ctive magnesium oxide (Mag-Ox) 400 mg (241.3 mg magnesium) tablet Take 1 tablet by mouth in the morning, afternoon, and at bedtime.12/21/2023 Active carvedilol (Coreg) 25 mg tablet Take 25 mg by mouth with breakfast and with evening meal.01/17/2024ctive levothyroxine (Synthroid, Levoxyl) 125 mcg tablet TAKE 1 TABLET BY MOUTH EVERY MORNING ON AN EMPTY WZNMLUY3912/21/2023ctive pantoprazole (ProtoNix) 40 mg EC tablet Take 1 tablet by mouth in the morning.Active liothyronine (Cytomel) 5 mcg tablet Take 10 mcg by mouth in the morning.12/05/2021ctive ferrous sulfate 325 (65 Fe) MG tablet Take 1 tablet by mouth 2 times daily.Active cloNIDine (Catapres) 0.1 mg tablet Take 0.1 mg by mouth if needed each day for high blood pressure.01/01/2024ctive atorvastatin (Lipitor) 80 mg tablet Take 80 mg by mouth at bedtime.12/25/2023ctive furosemide (Lasix) 20 mg tablet Take 50 mg by mouth in the morning. Patient is taking 50 mg 1 x per day 12/25/2023ctive allopurinol (Zyloprim) 300 mg tablet Take 100 tablets by mouth in the morning.Active NovoLOG Flexpen U-100 Insulin 100 unit/mL (3 mL) injection pen INJECT 12 UNITS SUBCUTANEOUSLY IN THE MORNING, 16 UNITS at lunch, and 22 UNITS at ikungk3906/06/2023ctive insulin detemir (Levemir FlexPen) 100 unit/mL (3 mL) injection pen INJECT 50 UNITS SUBCUTANEOUSLY (under the skin) TWICE DAILY06/15/2015ctive nitroglycerin (Nitrostat) 0.[address] 1 tablet as needed by sublingual route as directed.01/27/2024ctive hydrALAZINE (Apresoline) 10 mg tablet Indications: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 270 tablet ctive insulin degludec (Tresiba FlexTouch U-100) 100 unit/mL (3 mL) injection Inject under the skin at bedtime.Active hydrALAZINE (Apresoline) 25 mg tablet Indications:Benign hypertensive heart disease with heart failure (CMS/HCC)Take 1 tablet (25 mg) by mouth three times daily. 270 tablet ctive Additional Information Patient not taking.Reported on 02/25/2025 isosorbide mononitrate ER (Imdur) 120 mg 24 hr tablet Take 120 mg by mouth in the morning. Do not crush or chew.Active hydrALAZINE (Apresoline) 50 mg tablet Indications:Benign hypertensive heart disease with heart failure (CMS/HCC)Take 1 tablet (50 mg) by mouth three times daily. 270 tablet ctive diclofenac (Voltaren) 75 mg EC tablet Take 1 tablet by mouth twice a day.Active lisinopril 40 mg tablet Take 40 mg by mouth in the morning.Active ranolazine (Ranexa) 500 mg 12 hr tablet Take 1 tablet by mouth twice a day.Active Active Problems ProblemNoted DateDiagnosed DateContact yztkayniar60/05/2197Gniqdlb84/06/2024 02/10/2024Hypertensive euqzkqm66/03/2024Stage 4 chronic kidney disease /lass 1 obesity in adultEssential ulykdnsrjgru12therosclerosis of [place] coronary artery of [place] heart without angina zleogqbe56H/O four vessel coronary artery bypass graftaroxysmal atrial bsdkpgioejrj76/07/2021 02/10/2024Unstable wqxhwt38nemiarthritis iabetes nopgdvvi19Other hyperlipidemia isorder of carotid sdqdxs62ombined forms of age-related cataract of left eyecquired hypothyroidism Encounters DateTypeDepartmentCare PiieKptuffycmnu21/11/2025Orders Only [facility] [place] [address] [place] [address] Provider, MD Sloane from Last 3 Months Social History Tobacco UseTypesPacks/DayYears UsedDateSmoking Tobacco: FormerCigarettes Smokeless Tobacco: Never Tobacco Cessation:Counseling Given: Not Answered Alcohol UseStandard Drinks/WeekCommentsNot Currently0 (1 standard drink = 0.6 oz pure alcohol)UT Safety & EnvironmentAnswerDate RecordedFear of Current or Ex-PartnerNot on file01/27/2024Emotionally AbusedNot on file01/27/2024hysically AbusedNot on file01/27/2024Sexually AbusedNot on file01/27/2024hysically or Sexually AbusedNot on file01/27/2024CommentsUnknownSex and Gender InformationValueDate RecordedSex Assigned at BirthNot on fileLegal SexFemale 04/04/2022 10:24 PM EDTGender IdentityNot on fileSexual OrientationNot on file Last Filed Vital Signs Vital SignReadingTime TakenCommentsBlood Dhdzvtpm246/7005 8:55 AM EDT Issgl954302/25/2025 8:55 AM EDTTemperature--Respiratory Rate--Oxygen Zdrsxkwrnx27% 02/25/2025 8:55 AM EDTInhaled Oxygen Concentration--Ryfkzd80.5 kg (195 lb) 02/25/2025 8:55 AM ETCYxyaza401.6 cm (5' 6 )02/25/2025 8:55 AM EDTBody Mass Index31.47002/25/2025 8:55 AM EDT Plan of Treatment DateTypeDepartmentCare Team (Latest Contact Info)Ytgezbzpnvm01/27/2025 9:20 AM EDTOffice Visit [facility] [address] [place] [address] Jasvir Levine, LITERACY COORDINATOR [address] [place] [address] Health MaintenanceDue DateLast DoneCommentsDiabetes: Hemoglobin A1C1944 Medicare Annual Wellness (AWV)1944Diabetes: Retinopathy Screening 1954Depression Wifpfpvhu43/10/1957Diabetes: Urine Protein Screening 12/15/1963Adult Ugeqvep6212/14/1966Zoster Vaccines (1 of 2)1994Fall Risk Awfrkydib42/10/2010COVID-19 Vaccine ( season)/, 12/13/2020Influenza Vaccine (#1)/09/2020, 07/22/2019, 07/20/2019, Additional history existsPneumococcal Vaccine: 50+ RjnazNpmzlbpjg87/09/2017, 08/08/2012, 08/09/2003HIB VaccinesAged OutNo longer eligible based on patient's age to complete this topicHPV VaccinesAged OutNo longer eligible based on patient's age to complete this topicIPV VaccinesAged OutNo longer eligible based on patient's age to complete this topicMeningococcal B VaccineAged OutNo longer eligible based on patient's age to complete this topicMeningococcal VaccineAged OutNo longer eligible based on patient's age to complete this topicRotavirus VaccinesAged OutNo longer eligible based on patient's age to complete this topic Procedures Procedure NamePriorityDate/TimeAssociated DiagnosisCommentsCOMPLETE TRANSTHORACIC ECHO (TTE) W/WO IMAGING AGENT, STRAIN, 3D, BUBBLE STUDYRoutine 06/16/2025 9:20 AM EDTfrom Last 3 Months Results * Complete Echo (TTE) w/wo Imaging Agent, Strain, 3D, Bubble Study (06/16/2025 9:20 AM EDT)Anatomical RegionLateralityModalityUltrasound Narrative Authorizing ProviderResult TypeResult StatusHistorical Provider MDCV ECHO PROCEDURESFinal Result from Last 3 Months Insurance * Guarantor: Allison Robin TypeRelation to PatientDate of BirthPhone Billing AddressPersonal/QlzinuJmwa70/10/1946 [address] [address] Care Teams Team MemberRelationshipSpecialtyStart DateEnd Date Merrick Rubi MD [address] [facility] [address] [address] [facility]01/22/24
--- OUTSIDE RECORDS SUMMARY | 2025-07-28 07:55 | XMS_ITS | Clinical Summary ---
Author Organization [facility] Address [address], [address] [place] [address] Care Team Providers Care Broomcorn Scraper Name Role Phone Merrick Rubi MD Primary Care Provider [phone] Allergies Active AllergyReactionsCriticalityNoted DateComments Sulfamethoxazole-UswfpvlxkzirRtnku50/29/2015 Medications MedicationSigDispense QuantityRefillsLast FilledStart DateEnd DateStatus allopurinol (ZYLOPRIM) 100 MG tablet Take 100 mg by mouth daily06/22/2015ctive fluconazole (DIFLUCAN) 100 MG tablet 05/04/2015ctive LEVEMIR FLEXTOUCH 100 UNIT/ML injection pen 40 Units 2 times daily06/15/2015ctive labetalol (NORMODYNE) 200 MG tablet Take 200 mg by mouth 2 times daily06/22/2015ctive levothyroxine (SYNTHROID) 125 MCG tablet Take 125 mcg by mouth daily06/22/2015ctive lisinopril (PRINIVIL;ZESTRIL) 40 MG tablet Take 40 mg by mouth daily06/22/2015ctive simvastatin (ZOCOR) 80 MG tablet Take 80 mg by mouth moyhwml2306/22/2015ctive Insulin Aspart (NOVOLOG FLEXPEN SC) Inject into the skin 4 units if BS under 140, 8 units if BS over 140Active aspirin 81 MG tablet Take 81 mg by mouth dailyActive Multiple Vitamin (MULTIVITAMINS PO) Take by mouth dailyActive Multiple Vitamins-Minerals (THERAPEUTIC MULTIVITAMIN-MINERALS) tablet Take 1 tablet by mouth dailyActive calcium carbonate (OSCAL) 500 MG TABS tablet Take 500 mg by mouth dailyActive Active Problems ProblemNoted DateDiagnosed DateCombined forms of age-related cataract of left eye01/30/2016IDDM (insulin dependent diabetes mellitus)08/04/2015cquired wajnlszezffine53/29/2015 Family History Medical HistoryRelationNameCommentsDiabetesBrother 2DiabetesBrother 3Diabetes Brother 4CancerFatherlungDiabetesFatherDiabetesMaternal GrandfatherCancer Maternal GrandmotherbreastDiabetesMaternal GrandmotherCancerMotherbreastDiabetes MotherDiabetesPaternal GrandfatherDiabetesPaternal GrandmotherDiabetesSister 1 DiabetesSister 2RelationNameStatusCommentsBrother 1DeceasedBrother 2Deceased Brother 3AliveBrother 4AliveFatherDeceasedMaternal GrandfatherDeceasedMaternal GrandmotherDeceasedMotherDeceasedPaternal GrandfatherDeceasedPaternal GrandmotherDeceasedSister 1AliveSister 2Alive Social History Tobacco UseTypesPacks/DayYears UsedDateSmoking Tobacco: NeverSmokeless Tobacco: NeverAlcohol UseStandard Drinks/WeekCommentsNo0 (1 standard drink = 0.6 oz pure alcohol)CommentsNoSex and Gender InformationValueDate RecordedSex Assigned at BirthNot on fileLegal XwmEhvysp16/10/2013 4:54 PM ESTGender Identity Not on fileSexual OrientationNot on file Last Filed Vital Signs Vital SignReadingTime TakenCommentsBlood Ekqcaovz700/7104 1:40 PM EDT Qcqhi6313 1:40 PM GMILhcpagbgfyj47.7 ??C (98 ??F)01/30/2016 1:24 PM EDT Respiratory Apvf7503 1:40 PM EDTOxygen Pyvgctkdiv55%01/30/2016 1:40 PM EDTInhaled Oxygen Concentration--Qqqzjd93.7 kg (200 lb)01/30/2016 12:28 PM EDT Hirjcn384.6 cm (5' 6 )01/30/2016 12:28 PM EDTBody Mass Index32.28001/30/2016 12:28 PM EDT Plan of Treatment Not on file Insurance Advance Directives * Full Code (Latest Code Status on File) Date ActivatedDate InactivatedComments01/30/2016 1:33 PM01/30/2016 4:23 PM * Full Code Date ActivatedDate InactivatedComments01/30/2016 12:27 PM01/30/2016 1:33 PM Care Teams Team MemberRelationshipSpecialtyStart DateEnd Merrick Rubi MD [address] [place] [address] [facility] - General01/17/16
--- OUTSIDE RECORDS SUMMARY | 2025-07-28 07:56 | XMS_ITS | CCD ---
Author Organization [facility] Care Team Providers Care Painter Mirror Name Role Phone PHYSICIAN, DEFAULT Unavailable Unavailable [...] Primary Care Unavailable DOREEN, RON Attending Unavailable DROEEN, RON Admitting Unavailable HOY ., DR BARTLETT [...] Attending Unavailable DOREEN, RON Admitting Unavailable THUAN DELVALLE Attending Unavailable DHRUV GUTIERRES Referring Unavailable DHRUV GUTIERRES Primary Care Unavailable Dhruv Gutierres MD Primary Care Provider Dhruv Gutierres MD Primary Care Provider Dhruv Gutierres MD Primary Care Provider Dhruv Gutierres MD Primary Care Provider Dhruv Gutierres MD Primary Care Provider Dhruv Gutierres MD Primary Care Provider Dmitriy Lynne MD Attending Provider Dhruv Gutierres MD Attending Provider Dmitriy Lynne Admitting Unavailable Dmitriy Lynne Attending Unavailable Dhruv Gutierres Primary Care Unavailable Dhruv Gutierres Attending Unavailable Dhruv Gutierres Admitting Unavailable LORRAINE POPE F Attending Unavailable LORRAINE POPE F Attending Unavailable GA LAI Attending Unavailable LORRAINE POPE Attending Unavailable LEYLA, LORRAINE F Referring Unavailable GRGE LONGORIA Attending Unavailable LEYLA, LORRAINE F Attending Unavailable GA LAI Attending Unavailable STEFANO CATHERINE Attending Unavailable ALEJANDRO ORTIZ Attending Unavailable Ron Martinez MD Attending Provider Allergies Allergy ClassificationReported Allergen(s)Allergy TypeDate of OnsetReaction(s) Facility (20 sources)amLODIPine; Translations: [AMLODIPINE]Drug Tysufwl92-61-6765Tpypbvt, RashProSailogyia Repository (20 sources)Amoxicillin / ClavulanateDrug Zpcscel32-80-1733WkotGmkej Coast [employer] Other (20 sources)Contrast mediaPropensity to adverse reactionsSouth [facility] Hospital [employer] Other (2 sources)Doxazosin; Translations: [doxazosin]Drug AllergySouth County Hospital [employer] Other (20 sources)Sulfamethoxazole / TrimethoprimDrug Bhqbuqy66-84-4658StfcBkwbj [place] [employer] Other (20 sources)Doxazosin; Translations: [DOXAZOSIN]Drug Ldjsgyh54-47-2961Enfuzvq, RashProMedica Repository (9 sources)Amoxicillin / Clavulanate; Translations: [Augmentin]Drug Allergy 08-04-9865XztlqzhQvcTr[facility] Repository (1 source)amLODIPineDrug Vtwmhxw91-65-7584[facility] Rep[facility] (1 source)Sulfamethoxazole / TrimethoprimDrug Ompbdat52-22-0366GujFairfield Medical Center Repository (2 sources)Sulfamethoxazole / Trimethoprim; Translations: [SULFAMETHOXAZOLE-TRIMETHOPRIM]Drug Dnmjpxn97-67-9580DugIqwogq Repository (20 sources)IODINATED CONTRAST MEDIA; Translations: [IODINATED CONTRAST MEDIA] Propensity to adverse reactions to drug (disorder)57-45-3022UjetqIalEjzxtz Repository (20 sources)AMOXICILLIN-POT CLAVULANATE; Translations: [AMOXICILLIN-POT CLAVULANATE]Propensity to adverse reactions to drug (disorder)62-99-9670Wynixkg [facility] Repository (20 sources)AmoxicillinDrug Nhuzlhl46-57-4586LfvzdwtOEFU Healthcare (20 sources)DoxazosinDrug Jbyxagq02-54-1318KirwpieZGTP Healthcare (20 sources)Sulfamethoxazole; Translations: [SULFAMETHOXAZOLE]Allergy to acjuhbrla02-31-9567PfpqhkkVRNZ Healthcare (20 sources)TrimethoprimDrug Lmuahio74-02-0378RatlurwBBYW Healthcare (5 sources)Clavulanate; Translations: [clavulanic acid]Drug Ptzrbkh77-01-1439 [facility] ReactionFort [facility] (1 source)amLODIPineDrug Yjruerl06-50-7865SdcsmjehjFort Hamilton Hospital Repository (1 source)AmoxicillinDrug Sdglrdf50-07-1693JkpxznvqdFort Hamilton Hospital Repository (1 source)DoxazosinDrug Kgrgvst95-31-5252AfcptucjdFort Hamilton Hospital Repository (1 source)SulfamethoxazoleDrug Mwonjsg22-15-7315YsclofymwFort Hamilton Hospital Repository (1 source)TrimethoprimDrug Umaeaax90-96-1208VfkmzyqviFort Hamilton Hospital Repository Medications Current Medications MedicationDrug Class(es)DatesSig (Normalized)Sig (Original)acetaminophen 500 mg oral tablet (20 sources)take 1 tablet by mouth every six hours as needed for pain acetaminophen (TYLENOL) 500 mg tablet Take 1 tablet (500 mg total) by mouth every 6 (six) hours as needed for pain. Activetake 2 tablets by mouth every six hoursAcetaminophen Extra Strength 500 MG 2 tablet as needed Orally every 6 hrs ActiveAcetaminophen Extra Strength 500 MG (4 sources)take 2 tablets by mouth every six hours as neededAcetaminophen Extra Strength 500 MG 2 tablet as needed Orally every 6 hrs Activeallopurinol 100 mg oral tablet (20 sources)Xanthine Oxidase InhibitorStart: 15-73-4145cyjb 1 tablet by mouth once dailyAllopurinol 100 mg tablet Active 100 MG PO Daily June 15, 2024 12:00am Complies with drug therapyStart: 10-09-2019 End: 31-96-1597Zwdikguxygb 300 mg tablet Discontinued 100 MG PO Daily October 09, 2019 1:00am June 150:31amtake 1 tablet by mouth in the morning allopurinoL (ZYLOPRIM) 300 mg tablet Take 1 tablet (300 mg total) by mouth in the morning. Activetake 1 tablet by mouth three times dailyallopurinol (Zyloprim) 100 MG tablet take 1 tablet by oral route 3 times every day Oral Activeaspirin 81 mg chewable tablet (20 sources)Platelet Aggregation Inhibitor, Nonsteroidal Anti-inflammatory Drug Start: 48-26-0608zzjx 1 tablet by mouth once dailyAspirin 81 mg tablet,chewable Active 1 TAB PO Daily December 04, 2023 1:00am FreeTextSi tablet Orally Once a day; Note: Source Status: Taking; Provider: Doreen Velasquez ( ) Complies with drug therapyStart: 60-08-5299smel 1 tablet by mouth once dailyaspirin 81 mg Indications: Hypertensive urgency , Shortness of breath , H/O four vessel coronary artery bypass graft , Atherosclerosis of [place] coronary artery of [place] heart without angina pectoris , Paroxysmal atrial fibrillation (CMS-HCC) , Localized edema Take 1 tablet (81 mg total) by mouth d aily. 90 tablet 3 01/11/2021 ActiveStart: 10-09-2019 End: 68-42-0919garn 1 tablet by mouth once dailyAspirin 81 mg Tablet,Delayed Release (Dr/Ec) Discontinued 81 MG PO Daily October 09, 2019 1:00am October 13, 2019 3:07pmtake 1 tablet by mouth every twenty-four hoursAspirin 81 MG 1 tablet Orally Once a day Activeatorvastatin 80 mg oral tablet (20 sources)HMG-CoA Reductase InhibitorStart: 01-88-5462caqi 1 tablet by mouth once dailyatorvastatin (LIPITOR) 80 mg tablet Indications: Atherosclerosis [place] coronary artery of [place] heart without angina pectoris , H/O four vessel coronary artery bypass graft , Hyperlipidemia, unspecified hyperlipidemia type TAKE 1 TABLET BY MOUTH NIGHTLY 45 tablet 03/12/2025 ActiveStart: 12-27-2022 End: 05-59-3071xdjr 1 tablet by mouth once dailyAtorvastatin 80 mg tablet Discontinued 1 TAB PO Daily December 04, 2023 1:00am June 15, 2024 10:37am FreeTextSi tablet Orally Once a day; Note: Source Status: Taking; Provider: Doreen Velasquez ( )ATORVASTATIN CALCIUM PO Atorvastatin Calcium Activebetamethasone 0.5 mg/ml topical cream (20 sources)CorticosteroidStart: 05-25-2024 End: 19-04-5377ftikkuahoszty dipropionate 0.05 % cream Indications: Granuloma annulare Apply to affected areas, upto twice a day when flared, do not use one the face, groin, or underarms, 30 day supply 45 g 11 06/04/2024 Activecarvedilol 25 mg oral tablet (20 sources)alpha-Adrenergic Gato, beta-Adrenergic BlockerStart: 06-15-2024 take 1 tablet by mouth twice dailyCarvedilol 25 mg tablet Active 25 MG PO Twice daily June 15, 2024 12:00am Complies with drug therapyStart: 01-17-2024 take 2 tablets by mouth once in the morning, then take 2 tablets by mouth at bedtimecarvediloL (COREG) 25 mg tablet Indications: Paroxysmal atrial fibrillation (CMS-HCC) , H/O four vessel coronary artery bypass graft , Hypertensive urgency , Shortness of breath , Localized edema Take 2 tablets (50 mg total) by mouth in the morning and 2 tablets (50 mg total) before bedtime. 180 tablet 3 01/17/2024 ActiveStart: 08-06-2022 End: 23-73-3885ajdg 1 tablet by mouth once in the morning, then take 1 tablet by mouth at bedtimecarvediloL (COREG) 25 mg tablet Indications: H/O four vessel coronary artery bypass graft , Hypertensive urgency , Shortness of breath , Paroxysmal atrial fibrillation (CMS-HCC) , Localized edema Take 1 tablet (25 mg total) by mouth in the morning and 1 tablet (25 mg total) before bedtime. 180 tablet 3 08/06/2022 01/17/2024 Discontinued (Reorder)CARVEDILOL PO Carvedilol Activecholecalciferol 0.125 mg oral tablet (7 sources)Vitamin DStart: 95-16-6530zabn 1 tablet by mouth once daily Cholecalciferol (Vitamin D3) 125 mcg (5,000 unit) tablet Active 125 MCG PO Daily June 15, 2024 12:00am Complies with drug therapy End: 83-66-0010eaxz 1 tablet by mouth in the morningcholecalciferol, vitamin D3, 5,000 units tablet Take 1 tablet (5,000 Units total) by mouth in the morning. 01/17/2024 Discontinued (Therapy completed)ciprofloxacin 500 mg oral tablet (3 sources)Quinolone Antimicrobialtake 1 tablet by mouth every twelve hoursCipro 500 MG 1 tablet Orally every 12 hrs ActivecloNIDine hydrochloride 0.1 mg oral tablet (16 sources)Central alpha-2 Adrenergic AgonistStart: 43-07-8060luqc 1 tablet by mouth every four hours as neededClonidine Hcl 0.1 mg tablet Active 0.1 MG PO Every 4 hours as needed June 15, 2024 12:00am Complies with drug therapy Start: 01-01-2024 End: 99-32-6451tjpv 2 tablets by mouth in the morning, then take 2 tablets by mouth at bedtimecloNIDine (CATAPRES) 0.1 mg tablet Take 2 tablets (0.2 mg total) by mouth in the morning and 2 tablets (0.2 mg total) before bedtime. 01/01/2024 01/17/2024 Discontinueddiclofenac sodium 75 mg delayed release oral tablet (18 sources)Nonsteroidal Anti-inflammatory Drugtake 1 tablet by mouth in the morningdiclofenac (Voltaren) 75 MG EC tablet Take 1 tablet by mouth in the morning and 1 tablet before bedtime. Do not crush, chew, or split. Active docusate sodium 50 mg / sennosides, alf 8.6 mg oral tablet (5 sources)take 1 tablet by mouth every twelve hoursSennosides-Docusate Sodium 8.6-50 MG 1 tablet in the evening as needed Orally every 12 hours Activeepoetin johnna-epbx 21287 UNT/ML Injectable Solution [Retacrit] (14 sources)Retacrit 55346 UNIT/ML as directed Injection Activeferrous sulfate 325 mg oral tablet (20 sources)Start: 48-97-8956dssw 1 tablet by mouth twice dailyFerrous Sulfate 325 mg (65 mg iron) tablet Active 325 MG PO Twice daily June 15, 2024 12:00amComplies with drug therapyStart: 10-09-2019 End: 64-71-7648jrsi 1 tablet by mouth once dailyFerrous Sulfate 325 mg (65 mg iron) Tablet Discontinued 325 MG PO Daily October 09, 2019 1:00am December 04, 2023 9:54amtake 1 tablet by mouth twice dailytake 1 tablet by mouth twice dailyFerrous Sulfate 325 (65 Fe) MG 1 tablet Orally bid for 90 day(s) Active hydrALAZINE hydrochloride 50 mg oral tablet (8 sources)Arteriolar VasodilatorStart: 24-75-6955fabv 1 tablet by mouth three times dailyHydralazine 50 mg tablet Active 50 MG PO Three times daily January 14, 2025 12:00am Complies with drug therapyStart: 06-15-2024 End: 89-71-4669rdml 1 tablet by mouth three times dailyHydralazine 25 mg tablet Discontinued 25 MG PO Three times daily June 15, 2024 12:00am January 14, 2025 9:21amhydrocortisone acetate 25 mg rectal suppository (20 sources)Corticosteroidhydrocortisone (Anusol-HC) 25 MG suppository Active hydrocortisone (Anusol-HC) 25 MG suppository insert 1 suppository by rectal route 2 times every dayfor 2 weeks Rectal ActiveInsulin Aspart U-100 (Novolog Flexpen U-100 Insulin) 100 unit/mL (3 mL) insulin pen (2 sources)Start: 97-82-6669Hubqtre Aspart U-100 (Novolog Flexpen U-100 Insulin) 100 unit/mL (3 mL) insulin pen Active SUBCUT Three times daily June 15, 2024 10:33am FreeTextSig: Use as Directed Subcutaneous 12 units in am, 16 units at noon, 22 units at supper.; Note: Source Status: Taking; Provider: Doreen Velasquez ( )Start: 12-04-2023 End: 01-85-6039Eeznrzl Aspart U-100 (Novolog Flexpen U-100 Insulin) 100 unit/mL (3 mL) insulin pen Discontinued SUBCUT December 04, 2023 1:00am June 15, 2024 10:37am FreeTextSig: Use as Directed Subcutaneous 10 units in am, 15 units at noon, 20 units at supper.; Note: Source Status: Taking; Provider: Doreen Velasquez ( )3 ml insulin aspart, human 100 unt/ml pen injector (20 sources)Insulin AnalogStart: 29-09-7866Lefjpft Aspart U-100 (Novolog Flexpen U-100 Insulin) 100 unit/mL (3 mL) insulin pen Active SUBCUT Three times daily June 15, 2024 10:33am FreeTextSig: Use as Directed Subcutaneous 12 units in am, 16 units at noon, 22 units at supper.; Note: Source Status: Taking; Provider: Doreen Velasquez ( ) Complies with drug therapyStart: 12-04-2023 End: 95-76-3203Iwvvbwl Aspart U-100 (Novolog Flexpen U-100 Insulin) 100 unit/mL (3 mL) insulin pen Discontinued SUBCUT December 04, 2023 1:00am June 15, 2024 10:37am FreeTextSig: Use as Directed Subcutaneous 10 units in am, 15 units at noon, 20 units at supper.; Note: Source Status: Taking; Provider: Doreen Velasquez ( )Start: 10-09-2019 End: 86-06-6806znasnb 4 [IU] by subcutaneous injection once before mealtime Insulin Aspart U-100 (Novolog Flexpen U-100 Insulin) 100 unit/mL (3 mL) Insulin Pen Discontinued 4 UNITS SUBCUT 3x/Day before meals & bedtime October 09, 2019 1:00am June 15, 2024 10:33aminsulin aspart (NovoLOG FLEXPEN) 100 UNIT/ML pen inject by subcutaneous route as per insulin sliding scale protocol Subcutaneous Activeinject 10 [IU] by subcutaneous injection before breakfast, then inject 15 [IU] by subcutaneous injection before lunch, then inject 20 [IU] by subcutaneous injection before dinnerinsulin aspart (NOVOLOG FLEXPEN U-100 INSULIN SUBQ) Inject under the skin. 10 UNITS BEFORE BREAKFAST, 15 UNITS BEFORE LUNCH, 20 UNITS BEFORE DINNER Activeinject 10 [IU] by subcutaneous injection before breakfast, then inject 15 [IU] by subcutaneous injection before lunch, then inject 20 [IU] by subcutaneous injection before dinnerinsulin aspart (NOVOLOG FLEXPEN U-100 INSULIN SUBQ) Inject under the skin. 10 UNITS BEFORE BREAKFAST, 15 UNITS BEFORE LUNCH, 20 UNITS BEFORE DINNER 0 ActiveNovoLOG FlexPen 100 UNIT/ML Use as Directed Subcutaneous 10 units in am, 15 units at noon, 20 unitsat supper. Active3 ml insulin degludec 100 unt/ml pen injector (3 sources)Insulin AnalogStart: 94-29-3584Xijoumw Degludec (Tresiba Flextouch U- 100) 100 unit/mL (3 mL) insulin pen Active 30 UNIT SUBCUT Twice daily January 14, 2025 12:00am Complies with drug therapyInsulin Degludec (Tresiba Flextouch U-100) 100 unit/mL (3 mL) insulin pen (1 source)Start: 97-34-7054Ifpvxrg Degludec (Tresiba Flextouch U-100) 100 unit/mL (3 mL) insulin pen Active 30 UNIT SUBCUT Twice daily January 14, 2025 12:00am24 hr isosorbide mononitrate 120 mg extended release oral tablet (15 sources)Nitrate VasodilatorStart: 41-91-3530owlo 1 tablet by mouth once daily in the morning, then take 1 tablet by mouth every twenty-four hours Isosorbide Mononitrate 120 mg tablet extended release 24 hr Active 120 MG PO Every morning June 15, 2024 12:00am Complies with drug therapyStart: 89-55-5554cncs 1 tablet by mouth once dailyisosorbide mononitrate (IMDUR) 30 mg 24 hr tablet Take 1 tablet (30 mg total) by mouth daily. 90 tablet 3 01/17/2024 ActiveStart: 10-09-2019 End: 82-56-1607trzs 1 tablet by mouth once daily, then take 1 tablet by mouth every twenty-four hoursIsosorbide Mononitrate 120 mg tablet extended release 24 hr Discontinued 120 MG PO Daily October 09, 2019 1:00am December 04, 2023 9:54amLevemir FlexTouch 100 UNIT/ML (11 sources)Levemir FlexTouch 100 UNIT/ML As Directed Subcutaneous 50 units twice a day Activelevothyroxine sodium 0.1 mg oral tablet (20 sources)l-ThyroxineStart: 62-83-1886pnkc 1 tablet by mouth once daily Levothyroxine 100 mcg tablet Active 100 MCG PO Daily June 15, 2024 12:00am Complies with drugtherapyStart: 10-09-2019 End: 79-70-3231mbzh 1 tablet by mouth once dailyLevothyroxine 125 mcg tablet Discontinued 125 MCG PO Daily October 09, 2019 1:00am December 04, 2023 9:51amtake 2 tablets by mouth before mealtimelevothyroxine (Synthroid, Levoxyl) 150 MCG tablet Take 2 tablets by mouth in the morning. Take before meals. Active take 1 tablet by mouth before mealtimelevothyroxine (Synthroid, Levoxyl) 150 MCG tablet Take 1 tablet by mouth in the morning. Take before meals. Activetake 1 tablet by mouth once daily in the morningSynthroid 125 MCG 1 tablet on an empty stomach in the morning Orally Once a day Activeliothyronine sodium 0.005 mg oral tablet (20 sources)l-TriiodothyronineStart: 25-90-1880dnhb 1 tablet by mouth once daily in the morningLiothyronine 5 mcg tablet Active 5 MCG PO Every morning June 15, 2024 10:30am Complies with drug therapyStart: 12-05-2021 End: 44-31-1594jqgk 2 tablets by mouth once dailyLiothyronine 5 mcg tablet Discontinued MCG PO December 04, 2023 1:00am June 15, 2024 10:37am FreeTextSi tablets on an empty stomach Orally Once a day; Note: Source Status: Taking; Provider: Doreen Velasquez ( )take 2 tablets by mouth every twenty-four hoursLiothyronine Sodium 5 MCG 2 tablets on an empty stomach Orally Once a day Activetake 2 tablets by mouth every twenty-four hours lisinopril 20 mg oral tablet (20 sources)Angiotensin Converting Enzyme InhibitorStart: 86-31-1795rrfj 1 tablet by mouth in the morninglisinopriL (PRINIVIL,ZESTRIL) 20 mg tablet Take 1 tablet (20 mg total) by mouth in the morning. 01/17/2024 ActiveStart: 12-17-2023 End: 83-07-4720royv 1 tablet by mouth once dailyLisinopril 20 mg tablet Discontinued 0 .ROUTE .COMPLEX 90 December 17, 2023 5:41pm June 15, 2024 10:35am TAKE 1 TABLET BY MOUTH ONCE DAILYStart: 88-45-5333bfss 1 tablet by mouth every twenty-four hoursLisinopril 10 MG 1 tablet Orally Once a day for 90 day(s) Jan, ActiveStart: 01-15-2022 End: 64-28-2601qfcy 1 tablet by mouth in the morninglisinopriL (PRINIVIL,ZESTRIL) 5 mg tablet Take 1 tablet (5 mg total) by mouth in the morning. 30 tablet 11 01/15/2022 01/17/2024 DiscontinuedStart: 10-09-2019 End: 11-85-1920ocah 1 tablet by mouth once dailyLisinopril 40 mg tablet Discontinued 40 MG PO Daily 90 December 09, 2023 11:27am December 17, 2023 5 :42pmtake 1 tablet by mouth every twenty-four hoursLisinopril 20 MG 1 tablet Orally Once a day for 90 days ActiveMagnesium (20 sources)MAGNESIUM PO ActiveMAGNESIUM PO Magnesium Activemagnesium oxide 400 mg oral tablet (20 sources)Start: 89-44-9882nozb 1 tablet by mouth three times dailymagnesium oxide (MAGOX) 400 mg tablet Indications: Paroxysmal atrial fibrillation (CMS- HCC) , Localized edema TAKE 1 TABLET BY MOUTH THREE TIMES DAILY 45 tablet 03/12/2025 ActiveStart: 07-09-2023 End: 98-49-7092juuf 1 tablet by mouth three times dailyMagnesium Oxide 400 mg (241.3 mg magnesium) tablet Active 400 MG PO Three times daily June 15, 2024 10:34am Complies with drug therapyStart: 10-09-2019 End: 06-62-4374orpj 1 tablet by mouth once dailyMagnesium Oxide 400 mg (241.3 mg magnesium) tablet Discontinued 400 MG PO Daily October 09, 2019 1:00am June 15, 2024 10:37amtake 1 tablet by mouth every twelve hoursMagnesium Oxide 400 MG 1 Tablet Orally twice a day for 90 Activeminocycline 100 mg oral capsule (20 sources)Tetracycline-class Drugtake 1 capsule by mouth every twelve hours minocycline 100 MG capsule 1 capsule every 12 (twelve) hours ActiveMulti For Her 50+ - (20 sources)Multi For Her 50+ - Orally Rlwxpobvtalzynixyx-dyqx-zambpbwv-folic acid (Centrum) chewable tablet (20 sources)mccobwecahre-xuny-nvuafewz-folic acid (Centrum) chewable tablet Chew 1 tablet Daily Mmxjwzsgyohushaaaf-axfg-bmjaiutz-folic acid (Centrum) chewable tablet Chew 1 tablet in the morning. Activenitroglycerin 0.4 mg sublingual tablet (8 sources)Nitrate VasodilatorStart: 10-09-2019 End: 39-55-6845Gssgqitdnvmyj 0.4 mg tablet, sublingual Active 0.4 MG SUBLINGUAL every 5 to 15 minutes as needed for Chest Pain June 15, 2024 10:36am Complies with drug therapypantoprazole 40 mg delayed release oral tablet (20 sources)Proton Pump InhibitorStart: 30-08-3784knna 1 tablet by mouth once dailyPantoprazole 40 mg tablet,delayed release (DR/EC) Active 40 MG PO Daily June 15, 2024 12:00amComplies with drug therapyPANTOPRAZOLE SODIUM PO ActivePANTOPRAZOLE SODIUM PO Pantoprazole Sodium ActivePantoprazole 40 mg tablet,delayed release (DR/EC) (1 source)Start: 78-51-8559kjtg 1 tablet by mouth once dailyPantoprazole 40 mg tablet,delayed release (DR/EC) Active 40 MG PO Daily June 15, 2024 12:00am 12 hr ranolazine 500 mg extended release oral tablet (18 sources)Anti-anginaltake 1 tablet by mouth every twelve hours in the morning ranolazine (Ranexa) 500 MG 12 hr tablet Take 1 tablet by mouth in the morning and 1 tablet before bedtime. Do not crush, chew, or split. Activeretacrit 20953 unit/ml solution (5 sources)Retacrit 60607 UNIT/ML as directed Injection ActiveSennosides- Docusate Sodium 8.6-50 MG (20 sources)take 1 tablet by mouth every twelve hours in the evening as needed take 1 tablet by mouth every twelve hours in the evening as neededSennosides- Docusate Sodium 8.6-50 MG 1 tablet in the evening as needed Orally every 12 hours ActiveThyroid (LEVOTHYROXINE-LIOTHYRONINE PO) (5 sources)Thyroid (LEVOTHYROXINE-LIOTHYRONINE PO) Levothyroxine-Liothyronine ActiveVitamin D-3 125 MCG (5000 UT) (20 sources)Vitamin D-3 125 MCG (5000 UT) as directed Orally Active Completed/Discontinued Medications MedicationDrug Class(es)DatesSig (Normalized)Sig (Original)alendronic acid 70 mg oral tablet (20 sources)BisphosphonateStart: 10-09-2019 End: 53-13-3151hxih 1 tablet by mouth every weekAlendronate (Fosamax) 70 mg Tablet Discontinued 70 MG PO every week October 09, 2019 1:00am December 04, 2023 9:54amtake 1 tablet by mouth in the morningalendronate (Fosamax) 70 MG tablet Take 1 tablet by mouth every 7 (seven) days Take in the morning with a full glass of water, on an empty stomach, and do not take anything else by mouth or lie down for the next 30 min. Activecalcium carbonate 1250 mg oral tablet (6 sources)Start: 10-09-2019 End: 08-13-3907Jbcgxhq Carbonate (Calcium 500) 500 mg calcium (1,250 mg) Tablet Discontinued 800 MG PO Daily October 09, 2019 1:00am June 15, 2024 10:35amtake 1 tablet by mouth every twenty-four hoursCalcium 600 MG 1 tablet with meals Orally Once a day Activefurosemide 20 mg oral tablet (20 sources)Loop DiureticStart: 01-14-2025 End: 61-57-1668phkr 2 tablets by mouth once daily in the morningFurosemide 20 mg tablet Discontinued 40 MG PO Every morning January 14, 2025 9:41am January 14, 2025 9:42amStart: 01-14-2025 End: 54-20-7309agtp 1 tablet by mouth once daily in the morningFurosemide 20 mg tablet Discontinued 20 MG PO Every morning January 14, 2025 9:41am January 14, 2025 9:41amStart: 37-75-8942uxtb 1 tablet by mouth once dailyFurosemide 40 mg tablet Active 40 MG PO Daily January 14, 2025 12:00am Complies with drug therapyStart: 06-17-2024 End: 22-50-0490biwy 1 tablet by mouth once dailyFurosemide 20 mg tablet Discontinued 0 .ROUTE .COMPLEX December 12, 2024 2:53pm January 14, 2025 9:25am TAKE 1 TABLET BY MOUTH DAILYStart: 12-25-2023 End: 21-22-6998waxa 1 tablet by mouth once dailyFurosemide 20 mg tablet Discontinued 20 MG PO Daily December 25, 2023 3:14pm June 17, 2024 10:58am End: 96-18-0185azaf 1 tablet by mouth twice dailyfurosemide (LASIX) 20 mg tablet Take 1 tablet (20 mg total) by mouth 2 (two) times a day. 01/17/2024 Discontinued (Therapy completed)take 1 tablet by mouth once dailyFurosemide 20 mg TAKE 1 TABLET BY MOUTH ONCE DAILY for 90 ActivehydroCHLOROthiazide 25 mg oral tablet (20 sources)Thiazide DiureticStart: 10-09-2019 End: 70-55-1972pbzu 2 tablets by mouth once dailyHydrochlorothiazide 25 mg Tablet Discontinued 50 MG PO Daily October 09, 2019 1:00am December 04, 2023 9:54amHYDROCHLOROTHIAZIDE PO ActiveHYDROCHLOROTHIAZIDE PO hydroCHLOROthiazide Active3 ml insulin detemir 100 unt/ml pen injector (20 sources)Insulin AnalogStart: 06-15-2024 End: 94-08-2829Femikyl Detemir U-100 (Levemir Flextouch U100 Insulin) 100 unit/mL (3 mL) insulin pen Discontinued 30 UNIT SUBCUT Twice daily June 15, 2024 10:33am January 14, 2025 9:23amStart: 60-06-9792nckdikq detemir U-100 (LEVEMIR) 100 unit/mL injection Inject 30 units in the morning and 25 units at night - closely monitor blood sugars and follow up with your PCP in 1-2 weeks [address] 01/03/2021 ActiveStart: 10-09-2019 End: 89-98-5913Gsyvwij Detemir U-100 (Levemir Flextouch U100 Insulin) 100 unit/mL (3 mL) Insulin Pen Discontinued 70 UNIT SUBCUT Twice daily October 09, 2019 1:00am June 15, 2024 10:37am took 35 units this am End: 19-49-5031gftjjep detemir (Levemir FlexPen) 100 UNIT/ML pen inject by subcutaneous route as per insulin sliding scale protocol Subcutaneous 07/13/2024 Discontinued (Formulary change)Levemir FlexTouch 100 UNIT/ML As Directed Subcutaneous 50 units twice a day Activelabetalol hydrochloride 200 mg oral tablet (20 sources)beta-Adrenergic BlockerStart: 10-09-2019 End: 94-35-2473vgpv 2 tablets by mouth once daily in the morningLabetalol 200 mg Tablet Discontinued 400 MG PO Every morning October 09, 2019 1:00am December 04, 2023 9:53amStart: 10-09-2019 End: 88-89-1413Qrjztpwlp 200 mg Tablet Discontinued 450 MG PO Daily at bedtime October 09, 2019 1:00am December 04, 2023 9:53amLABETALOL HCL PO labetalol Activemeloxicam 15 mg oral tablet (1 source)Nonsteroidal Anti-inflammatory DrugStart: 12-30-2023 End: 32-68-3294vnos 1 tablet by mouth in the morningmeloxicam (MOBIC) 15 mg tablet Take 1 tablet (15 mg total) by mouth in the morning. 12/30/202301/16 DiscontinuedMULTIVITAMIN ORAL (3 sources) End: 29-43-6387AMEAEADILDLH ORAL Take by mouth daily. 01/17/2024 Discontinued (Therapy completed)MULTIVITAMIN ORAL Take by mouth daily. ActiveMULTIVITAMIN ORAL Take by mouth daily. 0 QainvfGshbuumuqcxw-Ascb-Cmbop Acid (Centrum) 18-400 mg-mcg Tablet (4 sources)Start: 10-09-2019 End: 74-34-2551wgwy 1 tablet by mouth once txdsoAllqlewlboxg-Oajv-Tnztp Acid (Centrum) 18-400 mg-mcg Tablet Discontinued 1 TAB PO Daily October 09, 2019 1:00am June 15, 2024 10:35amNitrofurantoin Monohyd/M-Cryst 100 mg capsule (1 source)Start: 09-10-2024 End: 37-18-5628yyjk 1 capsule by mouth twice dailyNitrofurantoin Monohyd/M-Cryst 100 mg capsule Discontinued 100 MG PO Twice daily September 1041:00am September 10, 2024 10:28amnitrofurantoin, macrocrystals 25 mg / nitrofurantoin, monohydrate 75 mg oral capsule (3 sources)Nitrofuran AntibacterialStart: 09-10-2024 End: 71-97-3596pfoo 1 capsule by mouth twice dailyNitrofurantoin Monohyd/M-Cryst 100 mg capsule Discontinued 100 MG PO Twice daily September 1041:00am September 10, 2024 10:28amRETACRIT INJECTION (20 sources)Start: 46-83-9042HWNWLDJY INJECTION Nov, 1000 mLStart: 40-31-1695RGIUXUOO INJECTION Oct, 1000 mLStart: 37-06-4931CGPPCABY INJECTION Oct, 1000 mLStart: 75-36-3114BMPRJFRS INJECTION Aug, 1000 mLStart: 07-72-4701YXWQBQXK INJECTION Aug, 1000 mLStart: 08-01-2023 RETACRIT INJECTION Jul, 1000 mLStart: 50-48-5510YTOXHXEJ INJECTION Jul, 1000 mLStart: 67-77-3618GMGJWGCT INJECTION Jun, 1000 mLStart: 89-11-2731NXLINEQV INJECTION May, 1000 mLStart: 83-70-8647VDQQSKZD INJECTION Apr, 1000 mLStart: 58-88-7479VMCEDQCR INJECTION Apr, 1000 unitsStart: 88-95-5290VROAPMWH INJECTION Apr, 1000 UStart: 01-39-8408Zrjjb: 48-98-9734Tebqn: 17-49-9208GJYYGURL INJECTION Mar, 1000 mLStart: 44-71-4031Gatgq: 64-25-0350IBPSWKLL INJECTION Jan, 1000 mL Start: 05-16-4894Mtwai: 80-92-3206EXCCSMYJ INJECTION Dec, 1000 mLStart: 83-53-8383Dtyvp: 58-29-9572BETLMEDP INJECTION Oct, 1000 mLStart: 20-21-6479Kgesl: 75-55-0996RNTYJMOF INJECTION Sep, 1000 mLStart: 81-80-7986Vlodi: 65-09-7813KVLXEYHZ INJECTION Aug, 1000 mLStart: 47-05-2918ZTBKRISB INJECTION Jun, 1000 unitsStart: 68-96-6172Vnwcv: 13-62-2307IPSSWYTU INJECTION Jun, 1000 UStart: 76-04-0362Ablfc: 43-01-3398NPXXOMUP INJECTION May, 1000 mLsimvastatin 80 mg oral tablet (4 sources)HMG-CoA Reductase InhibitorStart: 10-09-2019 End: 85-20-8749xjsm 1 tablet by mouth once daily at bedtimeSimvastatin 80 mg tablet Discontinued 80 MG PO Daily at bedtime October 09, 2019 1:00am December 04, 2023 9:46am Problems Active Problems Problem ClassificationProblemDateDocumented DateEpisodic/ChronicAcute bronchitis (4 sources)Acute bronchitis, unspecified; Translations: [ACUTE BRONCHITIS UNSPECIFIED]Onset: 99-48-2022KuwhxfwbHosigtliosjqrk/social admission (10 sources)Patient encounter status; Translations: [Dietary counseling and surveillance]59-89-8644XwbmnwblWgwnzcy dysrhythmias (15 sources)Paroxysmal atrial fibrillation; Translations: [Atrial fibrillation] Onset: 302439-92-8342RjlqrrtPjgkvmk kidney disease (20 sources)Chronic kidney disease stage 3; Translations: [Chronic kidney disease, stage 3 (moderate)]Onset: 01-18-2022 Resolved: 62-15-2604UxwibycCkzohlqritu and hemorrhagic disorders (2 sources)Senile purpura; Translations: [Other nonthrombocytopenic purpura] 38-08-0720ZetenlejFmckcoqbty heart failure; nonhypertensive (1 source)Unspecified diastolic (congestive) heart failure; Translations: [UNSPECIFIED DIASTOLIC HEART FAILURE]Onset: 52-09-5476OievwbeTcqmfylu atherosclerosis and other heart disease (20 sources)Other forms of angina pectoris; Translations: [Atherosclerotic heart disease of [place] coronary artery without angina pectoris]Onset: 12-28-2020 87-58-3199PoohrzsWtrjwgfnqh and other anemia (20 sources)Anemia of renal disease; Translations: [Anemia in chronic kidney disease]19-67-1487MexmzflIrtoywvava and other anemia (20 sources)Anemia in chronic kidney disease; Translations: [ANEMIA IN CHRONIC KIDNEY DISEASE]Onset: 01-18-2022 Resolved: 26-35-9572XvvovrgCycxdomvfs and other anemia (20 sources)Iron deficiency anemia; Translations: [Iron deficiency anemia, unspecified]EpisodicDiabetes mellitus with complications (20 sources)Type 2 diabetes mellitus; Translations: [Type 2 diabetes mellitus with diabetic chronic kidney disease]Onset: 01-18-2022 Resolved: 92-41-5301SbzrljnLxdkqily mellitus without complication (11 sources)Type 2 diabetes mellitus without complication; Translations: [Type 2 diabetes mellitus without complications]77-55-2718AmwjxfmIfxqepcrs of lipid metabolism (20 sources)Mixed hyperlipidemia; Translations: [Mixed hyperlipidemia]Onset: 913290-77-2918PeoarirOzrqzfnrj hypertension (20 sources)Hypertensive disorder; Translations: [Essential (primary) hypertension]Onset: 035701-98-9674CxndunyVaqcl and electrolyte disorders (8 sources)HyperkalemiaEpisodicGenitourinary symptoms and ill-defined conditions (15 sources)Dysuria; Translations: [Microalbuminuria]Onset: 999992-27-5736 EpisodicGout and other crystal arthropathies (20 sources)Chronic gouty arthritis; Translations: [Idiopathic chronic gout, unspecified site, without tophus (tophi)]Onset: 01-18-2022 Resolved: 02-87-7221CzopilbTxxgl valve disorders (2 sources)Rheumatic disorders of both mitral and aortic valves; Translations: [Rheumatic disorders of both mitral and aortic valves]Onset: 86-18-3112Wusnyln Hypertension with complications and secondary hypertension (20 sources)Hypertensive renal disease; Translations: [Hypertensive chronic kidney disease with stage 1 throughstage 4 chronic kidney disease, or unspecified chronic kidney disease]Onset: 11-23-2020 Resolved: 47-24-8747VcjpucyCjkuapw (2 sources)Onychomycosis; Translations: [Tinea unguium]35-15-4090Patynbly Nutritional deficiencies (8 sources)Vitamin D deficiency; Translations: [Vitamin D deficiency, unspecified]49-46-2809JkszefpXureiprvqqyaub (9 sources)Arthritis; Translations: [Unspecified osteoarthritis, unspecified site]66-47-1338JknewgwFfldl aftercare (8 sources)Long-term 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; Translations: [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 of insulin]10-64-1837QwgwaqvqSmsgy and ill-defined heart disease (2 sources)Cardiomegaly; Translations: [Cardiomegaly]Onset: 53-84-9451Kobyejb Other circulatory disease (2 sources)Arterial, arteriole and capillary disease; Translations: [Disorder of arteries and arterioles, unspecified]ChronicOther connective tissue disease (4 sources)Pain in right foot; Translations: [PAIN IN RIGHT FOOT]Onset: 23-55-8162VsmtdtcdBbyvd connective tissue disease (1 source)Pain in left foot; Translations: [PAIN IN LEFT FOOT]Onset: 11-25-2022 EpisodicOther connective tissue disease (2 sources)Pain in both feet; Translations: [Pain in right foot]06-25-2024 EpisodicOther diseases of kidney and ureters (20 sources)Secondary hyperparathyroidism; Translations: [Secondary hyperparathyroidism of renal origin]63-42-0992OlejpnlOoipv diseases of kidney and ureters (16 sources)Secondary hyperparathyroidism of renal origin; Translations: [Secondary hyperparathyroidism (of renal origin)]Onset: 01-18-2022 Resolved: 75-01-9137ThlgzgzVjwih lower respiratory disease (5 sources)Shortness of breath; Translations: [Dyspnea]Onset: 01-17-2024 83-29-9375VdpainnlFevlx lower respiratory disease (9 sources)Dyspnea; Translations: [Dyspnea, unspecified]75-32-2816MfuxowhcPguvq nutritional; endocrine; and metabolic disorders (20 sources)Hypomagnesemia; Translations: [Hypomagnesemia]ChronicOther nutritional; endocrine; and metabolic disorders (20 sources)Obese class I; Translations: [Body mass index (BMI) 31.0-31.9, adult]ChronicOther nutritional; endocrine; and metabolic disorders (18 sources)Body mass index 30+ - obesity; Translations: [Obesity, unspecified] Onset: 166929-27-1226FgyltzgFfaps nutritional; endocrine; and metabolic disorders (9 sources)Obesity; Translations: [Obesity, unspecified]Onset: 01-15-2022 34-82-2473LewtrlxWjpcd screening for suspected conditions (not mental disorders or infectious disease) (4 sources)Encounter for screening mammogram for malignant neoplasm of breast; Translations: [ENC SCR MAMMO MALIG NEOPLASM BREAST]Onset: 17-46-2519Oncsbzug Other skin disorders (2 sources)Callosity; Translations: [Corns and callosities]01-63-3630Rupweajn Other skin disorders (2 sources)Inflamed seborrheic keratosis; Translations: [Inflamed seborrheic keratosis]86-86-5461BtrmdgmiEnhna skin disorders (2 sources)Seborrheic keratosis; Translations: [Other seborrheic keratosis] 77-39-3819GaiyydjsCropc skin disorders (2 sources)Lentiginosis; Translations: [Other melanin hyperpigmentation] 57-45-0806EnyvskixBrqvmhxxih and visceral atherosclerosis (4 sources)Peripheral vascular disease, unspecified; Translations: [Peripheral arterial disease]02-22-4643PcblfuhCcovpszc codes; unclassified (1 source)Family history of malignant neoplasm of breast; Translations: [FAMILY HX MALIG NEOPLASM OF BREAST]Onset: 12-73-2832QjteuooqCecjnqgu codes; unclassified (1 source)Family history of malignant neoplasm of trachea, bronchus and lung; Translations: [FAM HX MALIG NEOPLSM TRACH BRON LNG]Onset: 01-68-6540Hxxiijpj Residual codes; unclassified (1 source)Localized edema; Translations: [Localized edema]Onset: 01-17-2024 EpisodicResidual codes; unclassified (4 sources)Localized edema; Translations: [Localized edema]90-53-1059Tyzaeuol Thyroid disorders (8 sources)Peam thyroiditis; Translations: [Autoimmune thyroiditis] 52-54-7274QqcqwrdGoukultgcsab (3 sources)CONTACT W/AND (SUSP) EXPOS COVID-19; Translations: [CONTACT W/AND (SUSP) EXPOS COVID-19]Onset: 83-76-6595Jconzdihozxa (3 sources)OTHER LOW BACK PAIN; Translations: [OTHER LOW BACK PAIN]Onset: 08-38-0341Jpquxinfkiwh (1 source)Hospital Follow-upOnset: 01-17-2024 Past or Other Problems Problem ClassificationProblemDateDocumented DateEpisodic/ChronicBlindness and vision defects (1 source)Unspecified visual disturbance; Translations: [UNSPECIFIED VISUAL DISTURBANCE]Onset: 90-63-4022HayxrgvdIgrnsvbjnk associated with dizziness or vertigo (1 source)Dizziness and giddiness; Translations: [DIZZINESS AND GIDDINESS]Onset: 93-83-0792TvgrsbdmRhqkvwqg atherosclerosis and other heart disease (1 source)Presence of aortocoronary bypass graft; Translations: [Presence of aortocoronary bypass graft]Onset: 90-89-9570IpqtnhanSaurauh and fatigue (2 sources)Other fatigue; Translations: [Weakness]Onset: 46-00-3551MxlwpuleOwmx disorders (9 sources)Mood disordersOnset: 921070-12-5488Qlzhzvjgjbc chest pain (2 sources)Chest pain; Translations: [Chest pain, unspecified]34-06-1610Iyqneeyn Other circulatory disease (4 sources)Hemorrhage, not elsewhere classified; Translations: [HEMORRHAGE NOT ELSEWHERE CLASSIFIED]Onset: 06-20-3530IybjgzreZwgum circulatory disease (1 source)Hypotension, unspecified; Translations: [HYPOTENSION UNSPECIFIED] Onset: 61-79-2473PgfcfjffAfuxa fractures (4 sources)Collapsed vertebra, not elsewhere classified, lumbar region, subsequent encounter for fracture withdelayed healing; Translations: [COLLAPSED VERT NEC LUMB SUB DLAY HL]Onset: 69-76-1179EplsibzkTgkbr inflammatory condition of skin (2 sources)Granuloma annulare; Translations: [Granuloma annulare]06-04-2024 EpisodicOther lower respiratory disease (1 source)Shortness of breath; Translations: [Shortness of breath]Onset: 38-53-0413CainllctAxbvl skin disorders (2 sources)Eruption; Translations: [Rash and other nonspecific skin eruption] 87-00-1758KebacdrhUwmrypdj codes; unclassified (1 source)Procedure and treatment not carried out due to patient leaving prior to being seen by health care provider; Translations: [PROC AND TX NOT CARRIED OUT PT LEAVE]Onset: 25-58-5045XumxcnzbXzoyjzqujwts (1 source)CONTACT W/AND (SUSP) EXPOS COVID-19; Translations: [CONTACT W/AND (SUSP) EXPOS COVID-19]Onset: 42-61-0769Adqzqpjtbjau (1 source)OTHER LOW BACK PAIN; Translations: [OTHER LOW BACK PAIN]Onset: 05-21-2022 Results Test NameValueInterpretationReference RangeFacilityErythrocyte distribution width Auto (RBC) [Ratio]Ordered By: Ron Martinez on 66-83-5888Aghmgwyedcj distribution width (RBC) [Ratio]14.9 %11.0-15.0[facility] Glomerular filtration rate (GFR) estimation in non- AmericanOrdered By: Ron Martinez on 27-27-9290HKL/1.73 sq M.predicted among non-blacks MDRD (S/P/Bld) [Vol rate/Area]22 mL/min/{1.73_m2}Low>=60 mL/min/1.73m 2FBellevue HospitalHematocrit Auto (Bld) [Volume fraction]Ordered By: Ron Martinez on 46-36-5051Lzbmbchjco (Bld) [Volume fraction]30.1 %Low36.0-48.0[facility] HospitalHemoglobin [Mass/volume] in BloodOrdered By: Ron Martinez on 48-04-3312Icazrddnpq (Bld) [Mass/Vol]10.3 g/dLLow12.0-16.0[facility] HospitalIron binding capacity [Mass/volume] in Serum or PlasmaOrdered By: Ron Martinez on 22-79-6166Axfa binding capacity [Mass/Vol]210.0 ug/dLLow 250.0-450.0[facility] HospitalIron saturation [Mass Fraction] in Serum or PlasmaOrdered By: Ron Martinez on 91-43-3431Eqiq saturation [Mass fraction]22.4 %[facility] HospitalLaboratory - Chemistry and Chemistry - challengeOrdered By: Ron Martinez on 70-56-8838Nvhmlqd [Mass/Vol]3.6 g/dL3.4-5.0[facility] HospitalCalcium [Mass/Vol]9.5 mg/dL8.5-10.1 [facility] HospitalChloride [Moles/Vol]101 mmol/R37-025YulyplxigFort Hamilton HospitalCO2 [Moles/Vol]26.4 mmol/L21.0-32.0[facility] HospitalCreatinine [Mass/Vol]2.17 mg/dLHigh0.55-1.02[facility] HospitalFerritin [Mass/Vol]542.0 ng/mLHigh8.0-252.0[facility] HospitalGFR/1.73 sq M.predicted MDRD (S/P/Bld) [Vol rate/Area]26 mL/min/{1.73_m2}Low>=60 mL/min/1.73m 2FBellevue HospitalGlucose [Mass/Vol]173 mg/rVNjhh92-457CbkcefoclFort Hamilton HospitalIron [Mass/Vol] 47.0 ug/dLLow50.0-170.0[facility] HospitalMagnesium [Mass/Vol]2.0 mg/dL1.8-2.4FBellevue HospitalPotassium [Moles/Vol]4.1 mmol/L 3.5-5.1FMercy Health Perrysburg Hospitalodium [Moles/Vol]137 mmol/Q896-226 [facility] HospitalUrate [Mass/Vol]4.8 mg/dL2.6-6.0[facility] HospitalUrea nitrogen [Mass/Vol]37.0 mg/dLHigh7.0-18.0[facility] HospitalUrea nitrogen/Creatinine [Mass ratio]17.1 mg/mgFort Hamilton HospitalBilirubin Ql (U)NegativeNEGNewark HospitalGlucose (U) [Mass/Vol]NegativeNEGATIVEFort Hamilton HospitalKetones Ql (U)NegativeNEGNewark HospitalpH (U)5.5 [pH]5.0-9.0[facility] Memorialpecific gravity (U) [Rel density] 1.0201.005-1.025[facility] HospitalUrobilinogen Qn (U)0.2 {Esau'U}/dL0.2-1.0[facility] HospitalLaboratory - Specimen informationOrdered By: Ron Martinez on 87-50-1605Ezqpjhppzs (U)SLIGHTLY CLOUDY AbnormalCLEARFBellevue HospitalColor (U)LT. YELLOWYELLOWFort Hamilton HospitalLaboratory - UrinalysisOrdered By: Ron Martinez on 39-09-4422Dsrwytfxj esterase Test strip Ql (U)MODERATEAbnormalNEGATIVEFort Hamilton HospitalMucus Ql (Urine sed)NONE SEENNONE SEENFort Hamilton HospitalNitrite Ql (U)NegativeNEGATIVEFort [facility] Hospital Protein (U) [Mass/Vol]148.7 mg/dLHigh<=11.9[facility] Protein Ql (U)100 mg/dLAbnormalNEG/TRACEFort [facility] Hospital Leukocytes [#/volume] corrected for nucleated erythrocytes in Blood by Automated counOrdered By: Ron Martinez on 39-63-2429JPU corrected for nucl RBC Auto (Bld) [#/Vol]7.4 10 3/uL4.0-11.0[facility] Auto (RBC) [Entitic mass]Ordered By: Ron Martinez on 52-80-9181EHE (RBC) [Entitic mass]31.3 pg26.7-34.0White HospitalHC Auto (RBC) [Mass/Vol]Ordered By: Ron Martinez on 45-64-4382XJLO (RBC) [Mass/Vol]34.2 g/dL29.9-35.2FWyandot Memorial HospitalV Auto (RBC) [Entitic vol]Ordered By: Ron Martinez on 01-14-4335APA (RBC) [Entitic vol]91.5 fL81.0-99.0[facility] HospitalNo Panel InformationOrdered By: Ron Martinez on 805725-Ybevfmg Vitamin D Total30.2 ng/mLFort Hamilton HospitalComment on above:<20 ng/mL Vit D wohywyigc19-<30 ng/mL Vit D loqsgkefzheh68-760 ng/mL Vit D sufficient>100 ng/mL Potential ToxicityParathyroid Hormone (Intact)77 pg/mL Lzdsjaqf30-72KhspxinofFort Hamilton HospitalComment on above:Performed at: - [facility] [id number] Director: Ashok Benson PhD, Phone: [phone] Level4.1 mg/dL2.6-4.7FBellevue HospitalUrine BacteriaSMALL #/HPFAbnormalNONE [facility] HospitalUrine Occult BloodNegativeNEGATIVEFort Hamilton HospitalUrine Other CastsNONE SEEN #/LPFNONE [facility] HospitalUrine Other CrystalsNone Seen #/HPFNone [facility] HospitalUrine Random Tgfahyetyy589.87 mg/dL20.00-300.00[facility] HospitalUrine RBC2-5 #/HPFAbnormal0-2FBellevue Hospital Urine Squamous Epithelial CellsMODERATE #/LPFAbnormalNONE/RAREFort Hamilton HospitalUrine WBC>100 #/HPFAbnormalNONE [facility] HospitalPlatelet mean volume Auto (Bld) [Entitic vol]Ordered By: Ron Martinez on 55-04-9137Jymvtdoe mean volume (Bld) [Entitic vol]9.6 fL9.5-13.5FBellevue HospitalPlatelets Auto (Bld) [#/Vol]Ordered By: Ron Martinez on 60-85-1189Cejnvaztw (Bld) [#/Vol]220 10 3/dH185-326AcrzhxahaFort Hamilton HospitalRBC Auto (Bld) [#/Vol]Ordered By: Ron Martinez on 25-52-3142SFR (Bld) [#/Vol]3.29 10 6/uLLow4.20-5.40[facility] Memorialerum or plasma anion gap determinationOrdered By: Ron Martinez on 34-39-5552Oexua gap [Moles/Vol]13.7 mmol/LFBellevue HospitalUrine protein/creatinine ratioOrdered By: Ron Martinez on 31-16-4888Gbtjquf/Creatinine (U) [Ratio]1.02 [facility] HospitalOrders Onlyon 00-97-4759Nhwvfo [id number] Kylah Berger 1945 F Date Provider Department Center 06/17/2025 [id number], HISTORICAL BH CARD [facility] Family History Family history unknown: YesNormalUniversity of Memorial Herm[facility] Memorial City Medical CenterGlucose (Bld) [Mass/Vol]on 86-62-1279Yhuccxv Blood, ALH899 mg/dLNONJ Healthcare Laboratory - Hematology and Cell countson 19-19-5021LgM0z (Bld) [Mass fraction] 7.6 %NOMS HealthcareNo Panel Informationon 18-26-6888GYMF HealthcareUrine Cultureon 38-02-7261Juoeulxi identified Cx Nom (U)ORGANISM: Escherichia coli (ESBL) (O:ESCCOLESBL) [place] Count >100,000 Aerobic AIDEN Charge (NMIC56) SUSCEPTIBILITY ORGANISM: O:ESCCOLESBL ANTIBIOTIC INTERPRETATION AIDEN Amikacin S <16 Amoxacillin/K Clavulanate S <8 Ampicillin R >16 Ampicillin/Sulbactam S 88/4 Aztreonam R >16 Cefazolin R >16 Cefepime R >16 Ceftazidime R >16 Ceftazidime/Avibactam S <4 Ceftolozane/Tazobactam S <2 Ceftriaxone R >32 Cefuroxime R >16 Ciprofloxacin R >2 Ertapenem S <0.5 Gentamicin R >8 Levofloxacin R >4 Meropenem S <1 Meropenem/Vaborbactam S <2 Nitrofurantoin S <32 Piperacillin/Tazobactam S <8 Tetracycline S <4 Tigecycline S <2 Tobramycin R >8 Trimethoprim/Sulfamethoxazole R >2 S = SUSCEPTIBLE I = [...] RESISTANT TO ALL B-LACTAM DRUGS. PERFORMED BY: [place] [address] PATHOLOGIST TEST ENGINEERING MANAGER CINTIA GLASGOW M.D.NormalViera Hospital Physician GroupComment on above: Performed By: #### [facility] #### [place] [address] USAUrine cultureOrdered By: Dhruv Gutierres on 59-48-4614Yzklfzws identified Cx Nom (U)Escherichia coli (ESBL)Peoples HospitalUrine Cultureon 76-30-1982Geozkxno identified Cx Nom (U)ORGANISM: Escherichia coli (ESBL) (O:ESCCOLESBL) [place] Count >100,000 Aerobic AIDEN Charge (NMIC56) SUSCEPTIBILITY ORGANISM: O:ESCCOLESBL ANTIBIOTIC INTERPRETATION AIDEN Amikacin S <16 Amoxacillin/K Clavulanate S <8 Ampicillin R >16 Ampicillin/Sulbactam S 88/4 Aztreonam R >16 Cefazolin R >16 Cefepime R >16 Ceftazidime R >16 Ceftazidime/Avibactam S <4 Ceftolozane/Tazobactam S <2 Ceftriaxone R >32 Cefuroxime R >16 Ciprofloxacin R >2 Ertapenem S <0.5 Gentamicin R >8 Levofloxacin R >4 Meropenem S <1 Meropenem/Vaborbactam S <2 Nitrofurantoin S <32 Piperacillin/Tazobactam S <8 Tetracycline S <4 Tigecycline S <2 Tobramycin R >8 Trimethoprim/Sulfamethoxazole R >2 S = SUSCEPTIBLE I = [...] RESISTANT TO ALL B-LACTAM DRUGS. PERFORMED BY: [place] [address] PATHOLOGIST TEST ENGINEERING MANAGER CINTIA GLASGOW M.D.[facility] Physician GroupComment on above: Performed By: #### [facility] #### [place] [address] USAUrine cultureOrdered By: Dmitriy Lynne on 04-21-2025 Bacteria identified Cx Nom (U)Escherichia coli (ESBL)AbnormalFort Hamilton HospitalNo Panel Informationon 56-39-4213FIXI HealthcareOffice Visiton 10-14-2147Oqqxhk-up [id number] Kylah Berger 1945 F Date Provider Department Center 02/25/2025 [id number], STEFANO CARD [facility] Family History Family history unknown: Yes Level of Service:067[address] [place] OFFICE/OUTPATIENT ESTABLISHED MOD MDM 30 [facility] HospitalGlucose (Bld) [Mass/Vol]on 87-70-9831Aqmjbae Blood, FWA344 mg/dLNOMS HealthcareLaboratory - Hematology and Cell countson 01-43-8636ZuX0r (Bld) [Mass fraction]6.6 %[facility] HealthcareNo Panel Informationon 12-86-0180DDUZ HealthcareErythrocyte distribution width Auto (RBC) [Ratio]on 16-63-9403Bcqlswgiegc distribution width (RBC) [Ratio]Erythrocyte distribution width [Ratio] by Automated szkgfAsxf67.0-15.0[facility] Estimated glomerular filtration rate (GFR) non- Americanon 01-05-2025 GFR/1.73 sq M.predicted among non-blacks MDRD (S/P/Bld) [Vol rate/Area]Estimated glomerular filtration rate (GFR) non- AmericanLow>=60 mL/min/1.73m 2 [facility] HospitalHematocrit Auto (Bld) [Volume fraction]on 27-87-1075Scylvvzhwn (Bld) [Volume fraction]Hematocrit [Volume Fraction] of Blood by Automated rkmilOhb44.0-48.0[facility] HospitalHemoglobin [Mass/volume] in Bloodon 19-01-8447Guiexujbko (Bld) [Mass/Vol]Hemoglobin [Mass/volume] in OetevLnp06.0-16.0[facility] HospitalIron binding capacity [Mass/volume] in Serum or Plasmaon 43-63-6787Aaec binding capacity [Mass/Vol]Iron binding capacity [Mass/volume] in Serum or UjqzybDgn510.0-450.0 [facility] HospitalIron saturation [Mass Fraction] in Serum or Plasmaon 25-20-6579Dcwz saturation [Mass fraction]Iron saturation [Mass Fraction] in Serum or PlasmaFort Hamilton HospitalLaboratory - Chemistry and Chemistry - challengeon 32-30-0486Xnwopxo [Mass/Vol]3.3 g/dLLow 3.4-5.0[facility] HospitalCalcium [Mass/Vol]9.2 mg/dL8.5-10.1 [facility] HospitalChloride [Moles/Vol]105 mmol/S12-620QayjerdwhFort Hamilton HospitalCO2 [Moles/Vol]24.4 mmol/L21.0-32.0[facility] HospitalCreatinine [Mass/Vol]1.89 mg/dLHigh0.55-1.02[facility] HospitalFerritin [Mass/Vol]499.0 ng/mLHigh8.0-252.0[facility] HospitalGFR/1.73 sq M.predicted MDRD (S/P/Bld) [Vol rate/Area]31 mL/min/{1.73_m2}Low>=60 mL/min/1.73m 2FBellevue HospitalGlucose [Mass/Vol]122 mg/bGPsxr12-113PtniwbcetFort Hamilton HospitalIron [Mass/Vol] 69.0 ug/dL50.0-170.0[facility] HospitalMagnesium [Mass/Vol]1.9 mg/dL1.8-2.4FBellevue HospitalPotassium [Moles/Vol]4.7 mmol/L 3.5-5.1FMercy Health Perrysburg Hospitalodium [Moles/Vol]141 mmol/S605-065 [facility] HospitalUrate [Mass/Vol]3.9 mg/dL2.6-6.0[facility] HospitalUrea nitrogen [Mass/Vol]35.0 mg/dLHigh7.0-18.0[facility] HospitalUrea nitrogen/Creatinine [Mass ratio]18.5 mg/mgFort Hamilton HospitalLaboratory - Urinalysison 34-71-9587Ispmevg (U) [Mass/Vol]108.9 mg/dLHigh<=11.9[facility] HospitalLeukocytes [#/volume] corrected for nucleated erythrocytes in Blood by Automated counon 17-14-5575DWU corrected for nucl RBC Auto (Bld) [#/Vol]Leukocytes [#/volume] corrected for nucleated erythrocytes in Blood by Automated coun4.0-11.0[facility] HospitalMCH Auto (RBC) [Entitic mass]on 44-43-4938FBS (RBC) [Entitic mass]MCH [Entitic mass] by Automated count26.7-34.0[facility] HospitalMCHC Auto (RBC) [Mass/Vol]on 93-46-8202KQCB (RBC) [Mass/Vol]MCHC [Mass/volume] by Automated count29.9-35.2FWyandot Memorial HospitalV Auto (RBC) [Entitic vol]on 73-69-2300OXK (RBC) [Entitic vol]MCV [Entitic volume] by Automated count81.0-99.0[facility] HospitalNo Panel Information on 45-84-0260Gitsi Random Mimlahzpaq231.18 mg/dL20.00-300.00[facility]25-Hydroxy Vitamin D Total30.9 ng/mLFort Hamilton HospitalComment on above:<20 ng/mL Vit D trqbcgypo59-<30 ng/mL Vit D mkstguupsevn34-207 ng/mL Vit D sufficient>100 ng/mL Potential Toxicity Parathyroid Hormone (Intact)73 pg/wUSvuvnavv14-30OejhrowdzFort Hamilton HospitalComment on above:Performed at: [facility] [place] [id number] Director: Ashok Benson PhD, Phone: [phone] Phosphorus Level3.8 mg/dL2.6-4.7FBellevue HospitalPlatelet mean volume Auto (Bld) [Entitic vol]on 76-96-3297Tsxkpcjm mean volume (Bld) [Entitic vol]Platelet mean volume [Entitic volume] in Blood by Automated countLow9.5-13.5 [facility] HospitalPlatelets Auto (Bld) [#/Vol]on 01-05-2025 Platelets (Bld) [#/Vol]Platelets [#/volume] in Blood by Automated -534 [facility] HospitalRBC Auto (Bld) [#/Vol]on 55-58-3759GUE (Bld) [#/Vol]Erythrocytes [#/volume] in Blood by Automated countLow4.20-5.40[facility] Memorialerum or plasma anion gap determinationon 07-94-2382Vzdir gap [Moles/Vol]Serum or plasma anion gap determinationFort Hamilton HospitalUrine protein/creatinine ratioon 84-17-3280Zihsboq/Creatinine (U) [Ratio]Urine protein/creatinine ratioFort Hamilton HospitalOffice Visiton 98-13-6000Tnnrrm-up [id number] Kylah Berger 1945 F Date Provider Department Center 11/27/2024 [id number]-TEJMODALEJANDRO YOON ANNIA [facility] Family History Family history unknown: Yes Level of Service:[address] [place] OFFICE/OUTPATIENT ESTABLISHED MOD MDM 30 [facility] HospitalGlucose (Bld) [Mass/Vol]Ordered By: Maria Antonia Mo on 34-67-1614Rueaqxv Blood, EYM509 mg/dLNOMS HealthcareLaboratory - Hematology and Cell countson 42-28-0762PlS1v (Bld) [Mass fraction]7 %NOMS HealthcareNo Panel InformationOrdered By: Maria Antonia Mo on 72-98-1935ZVKE HealthcareGlucose (Bld) [Mass/Vol]Ordered By: Maria Antonia Mo on 57-46-6661Jymgqtq Blood, EIW316 mg/dLNOMS HealthcareNOMS HealthcareNo Panel Informationon 85-20-4454Vsqh of biopsy: punch Informed consent: discussed and [...] 2 Specimen sent for: H&E Photo taken yesJORDAN [facility] HealthcareNo Panel InformationOrdered By: Philomena Salter on 54-55-1650JFEY HealthcarePOCT EKGon 04-00-5977CxgNyfhqeRegency Hospital ToledoHEMOGRAM AND PLATELon 91-52-3695Lejwcrxjqr (Bld) [Volume fraction]28.8 %Critically low 36.0-48.0The [facility] HospitalComment on above:Performed By: #### HH #### [facility] [address] [place] [address] Dr. Ember TeagueHemoglobin (Bld) [Mass/Vol]9.6 g/dLCritically low12.0-16.0The [facility] HospitalComment on above:Performed By: #### HH #### [facility] [address] [place] [address] Dr. Ember VillafuerteH (RBC) [Entitic mass]30.7 idPoqfem02.7-34.0The [facility] HospitalComment on above:Performed By: #### HH #### [facility] [address] [place] [address] Dr. Ember VillafuerteHC (RBC) [Mass/Vol]33.3 g/aXRgqgyd67.9-35.2The [facility] HospitalComment on above:Performed By: #### HH #### [facility] [address] [place] [address] Dr. Ember VillafuerteV (RBC) [Entitic vol]92.0 oXEdiduu43.0-99.0The [facility] HospitalComment on above:Performed By: #### HH #### [facility] [address] [place] [address] Dr. Ember TeaguePLT214 103/boWodzlq545-952Fuk [facility] HospitalComment on above: Performed By: #### HH #### [facility] [address] [place] [address] Dr. Ember TeagueRBC3.13 106/ulCritically low4.20-5.40The [facility] HospitalComment on above:Performed By: #### HH #### [facility] [address] [place] [address] Dr. Ember TeagueWBC7.4 103/ulNormal4.0-11.0The [facility] HospitalComment on above: Performed By: #### HH #### [facility] [address] [place] [address] Dr. Ember TeagueMAGNESIUMon 14-05-4218Ottfdvisg [Mass/Vol]1.8 mg/dLNormal1.8-2.4 The [facility] HospitalComment on above:Performed By: #### MG, RENAL #### [facility] [address] [place] [address] Dr. Ember MackayAL FUNCTION PANELon 27-37-6854Smgzacz [Mass/Vol]3.6 g/dLNormal 3.4-5.0The [facility] HospitalComment on above:Performed By: #### MG, RENAL #### [facility] [address] [place] [address] Dr. Ember TeagueCalcium [Mass/Vol]9.7 mg/dLNormal8.5-10.1The [facility] Comment on above:Performed By: #### MG, RENAL #### [facility] [address] [place] [address] Dr. Ember TeagueChloride [Moles/Vol]105 mmol/DPamkmv28-170Etx [facility] Comment on above:Performed By: #### MG, RENAL #### [facility] [address] [place] [address] Dr. Ember TeagueCO2 [Moles/Vol]22.6 mmol/VItquku89.0-32.0The [facility] Comment on above:Performed By: #### MG, RENAL #### [facility] [address] [place] [address] Dr. Ember TeagueCreatinine [Mass/Vol]2.18 mg/dLCritically high0.55-1.02The [facility] HospitalComment on above:Performed By: #### MG, RENAL #### [facility] [address] [place] [address] Dr. Yilan ChangEGFR-AF NMDMJEGM91 mL/min/1.29c7Nwafjzlxjx low>=60The [facility] HospitalComment on above:Performed By: #### MG, RENAL #### [facility] [address] [address] [address] Ember PedersenGFR-NON AF AUUOSGLU50 mL/min/1.79d4Flohequfxz low>=60The [facility] HospitalComment on above:Performed By: #### MG, RENAL #### [facility] [address] [address] [address] Ember TeagueGlucose [Mass/Vol]134 mg/dLCritically fcpa89-916Ksu [facility] HospitalComment on above:Performed By: #### MG, RENAL #### [facility] [address] [place] [address] Dr. Ember TeaguePhosphate [Mass/Vol]4.6 mg/dLNormal2.6-4.7The [facility] Comment on above:Performed By: #### MG, RENAL #### [facility] [address] [place] [address] Dr. Ember TeaguePotassium [Moles/Vol]5.1 mmol/LNormal3.5-5.1[facility] Comment on above:Performed By: #### MG, RENAL #### [facility] [address] [place] [address] Dr. Ember TeagueSodium [Moles/Vol]138 mmol/HNxejqv911-728Jfx [facility] Comment on above:Performed By: #### MG, RENAL #### [facility] [address] [place] [address] Dr. Ember TeagueUrea nitrogen [Mass/Vol]61.0 mg/dLCritically high7.0-18.0The [facility] HospitalComment on above:Performed By: #### MG, RENAL #### [facility] [address] [place] [address] Dr. Ember TeagueMG MAMM SCREEN 3D MAY CADon 00-49-3017QC MAMM SCREEN 3D MAY CAD Patient: KYLAH BERGER Exam Date: 12/17/2022 : 1945 Gender:F Ordering : DR DHRUV GUTIERRES . Admission #: [id number] Family : Order #: [id number] CLICK HERE TO VIEW EXAM RADIOLOGY REPORT [...] cancer at age 61. LOCATION: [facility] BREAST COMPOSITION: Scattered areas fibroglandular density. [...] LUMP SHOULD BE BIOPSIED. Dictated by: Beni Christie MD on 12/17/2022 at 11:54 Approved by: Beni Christie MD on 12/17/2022 at 11:59NoWexner Medical Center FERRITINon 27-68-0810Nrfuwmjh [Mass/Vol]681.0 ng/mLCritically high8.0-252.0The [facility] HospitalComment on above:Performed By: #### PTHINT #### [facility] [address] [place] [address] Dr. Ember TeagueHEMOGRAM AND PLATELon 59-25-4739Vdkqjtqikp (Bld) [Volume fraction]27.1 %Critically low36.0-48.0The [facility] HospitalComment on above: Performed By: #### CVDTBH #### [facility] [address] [place] [address] Dr. Ember TeagueHemoglobin (Bld) [Mass/Vol]9.7 g/dLCritically low12.0-16.0The [facility] HospitalComment on above:Performed By: #### CVDTBH #### [facility] [address] [place] [address] Dr. Ember Villafuerte (RBC) [Entitic mass]31.4 vbEvcody30.7-34.0The [facility] HospitalComment on above:Performed By: #### CVDTBH #### [facility] [address] [place] [address] Dr. Ember Villafuerte (RBC) [Mass/Vol]35.8 g/dLCritically high29.9-35.2The [facility] HospitalComment on above:Performed By: #### CVDTBH #### [facility] [address] [place] [address] Dr. Ember Villafuerte (RBC) [Entitic vol]87.7 aLKbidmf68.0-99.0The [facility] HospitalComment on above:Performed By: #### CVDTBH #### [facility] [address] [place] [address] Dr. Ember TeaguePLT218 103/zqJlbexo070-673Lwg [facility] HospitalComment on above: Performed By: #### CVDTBH #### [facility] [address] [place] [address] Dr. Ember TeagueRBC3.09 106/ulCritically low4.20-5.40The [facility] HospitalComment on above:Performed By: #### CVDTBH #### [facility] [address] [place] [address] Dr. Ember TeagueWBC6.6 103/ulNormal4.0-11.0The [facility] HospitalComment on above: Performed By: #### CVDTBH #### [facility] [address] [place] [address] Dr. Ember Amador AND TIBCon 12-10-2022% XYZILPWPDV52.2 %NormalThe [facility] HospitalComment on above:Performed By: #### PTHINT #### [facility] [address] [place] [address] Dr. Ember Amador [Mass/Vol]84.0 ug/zURkerbg91.0-170.0[facility] Comment on above:Performed By: #### PTHINT #### [facility] [address] [place] [address] Dr. Ember TeagueTIBC OIOTWC021.0 ug/gAPdnjon552.0-450.0[facility] Comment on above:Performed By: #### PTHINT #### [facility] [address] [place] [address] Dr. Ember TeagueXR FOOT MAY MIN 3 VIEWSon 05-95-3671GO FOOT MAY MIN 3 VIEWS EXAMINATION: XR [...] CONCLUSION: Degenerative changes Electronically authenticated by: BENI CHRISTIE Date: 2022-11-20 14:03[facility] HospitalHEMOGRAM AND PLATELon 82-64-9789Kwwqohrwnt (Bld) [Volume fraction]27.7 %Critically low36.0-48.0[facility] CenterComment on above: Performed By: #### RENAL #### [facility] [address] [place] [address] Dr. Ember TeagueHemoglobin (Bld) [Mass/Vol]10.0 g/dLCritically low12.0-16.0[facility] CenterComment on above:Performed By: #### RENAL #### [facility] [address] [place] [address] Dr. [facility]agueB[facility] (RBC) [Entitic mass]31.6 huQcmunm99.7-34.0The [facility] HospitalComment on above:Performed By: #### RENAL #### [facility] [address] [address] [address] Ember VillafuerteHC (RBC) [Mass/Vol]36.1 g/dLCritically high29.9-35.2The [facility] HospitalComment on above:Performed By: #### RENAL #### [facility] [address] [place] [address] Dr. Ember VillafuerteV (RBC) [Entitic vol]87.7 rGOfcpjs19.0-99.0The [facility] HospitalComment on above:Performed By: #### RENAL #### [facility] [address] [place] [address] Dr. Ember TeaguePLT182 103/peFmqheb454-852Hzl [facility] HospitalComment on above: Performed By: #### RENAL #### [facility] [address] [place] [address] Dr. Ember TeagueRBC3.16 106/ulCritically low4.20-5.40The [facility] HospitalComment on above:Performed By: #### RENAL #### [facility] [address] [place] [address] Dr. Ember TeagueWBC6.8 103/ulNormal4.0-11.0The [facility] HospitalComment on above: Performed By: #### RENAL #### [facility] [address] [place] [address] Dr. Ember TeaguePROF CHEM 8 (BAS METB)on 02-14-8275Htrtd gap [Moles/Vol]17.6 mmol/LNormalThe [facility] HospitalComment on above:Performed By: #### CVDTBH #### [facility] [address] [place] [address] Dr. Ember TeagueCalcium [Mass/Vol]9.0 mg/dLNormal8.5-10.1The [facility] Comment on above:Performed By: #### CVDTBH #### [facility] [address] [place] [address] Dr. Ember TeagueChloride [Moles/Vol]104 mmol/WQnnrla99-125Gak [facility] Comment on above:Performed By: #### CVDTBH #### [facility] [address] [address] [address] Ember TeagueCO2 [Moles/Vol]22.2 mmol/WAfmady40.0-32.0[facility] Comment on above:Performed By: #### CVDTBH #### [facility] [address] [address] [address] Ember TeagueCreatinine [Mass/Vol]2.03 mg/dLCritically high0.55-1.02The [facility] HospitalComment on above:Performed By: #### CVDTBH #### [facility] [address] [address] [address] Ember PedersenGFR-AF FGVKYEEI00 mL/min/1.46n0Yjllorypmz low>=60The [facility] HospitalComment on above:Performed By: #### CVDTBH #### [facility] [address] [place] [address] Dr. Ember PedersenGFR-NON AF XZIGPEQV12 mL/min/1.92r6Yljnhecoyx low>=60The [facility] HospitalComment on above:Performed By: #### CVDTBH #### [facility] [address] [place] [address] Dr. Ember TeagueGlucose [Mass/Vol]154 mg/dLCritically bvsf62-423Bzp [facility] HospitalComment on above:Performed By: #### CVDTBH #### [facility] [address] [place] [address] Dr. Ember TeaguePotassium [Moles/Vol]4.8 mmol/LNormal3.5-5.1The [facility] Comment on above:Performed By: #### CVDTBH #### [facility] [address] [address] [address] Ember TeagueSodium [Moles/Vol]139 mmol/MHmhxzf272-119Izx [facility] Comment on above:Performed By: #### CVDTBH #### [facility] [address] [place] [address] Dr. Ember TeagueUrea nitrogen [Mass/Vol]43.0 mg/dLCritically high7.0-18.0[facility] CenterComment on above:Performed By: #### CVDTBH #### [facility] [address] [address] [address] Ember Demarco nitrogen/Creatinine [Mass ratio]21.2 mg/mgCleveland Clinic Mercy HospitalComment on above:Performed By: #### CVDTBH #### [facility] [address] [address] [address] Ember TaegueCULTURE SPUTUMon 62-39-9648HULGQXU SPUTUMCulture Observations: Beta lactamase positive Isolate 1 Haemophilus influenzae Moderate growth [facility] HospitalComment on above:Performed By: #### RENAL #### [facility] [address] [address] [address] Ember SigalaUTUM GRAM STAINon 12-28-0670ELFFYJSTIlnpdqCbaHarrison Community Hospital Comment on above:Performed By: #### RENAL #### [facility] [address] [address] [address] Ember LundPHTHEROIDSCleveland Clinic Mercy HospitalComment on above:Performed By: #### RENAL #### [facility] [address] [address] [address] Ember WebbALS>25[facility] HospitalComment on above: Performed By: #### RENAL #### [facility] [address] [address] [address] Ember HernandezNGAL ELEMENTSCleveland Clinic Mercy HospitalComment on above: Performed By: #### RENAL #### [facility] [address] [address] [address] Ember Irwin NEG BACILLICleveland Clinic Mercy HospitalComment on above: Performed By: #### RENAL #### [facility] [address] [address] [address] Ember Irwin NEG DIPPLOCOCCIFEWCleveland Clinic Mercy HospitalComment on above:Performed By: #### RENAL #### [facility] [address] [address] [address] Ember Irwin POS BACILLIFEWNoWexner Medical CenterComment on above: Performed By: #### RENAL #### [facility] [address] [place] [address] Dr. Ember Irwin POSITIVE COCCIMANYCleveland Clinic Mercy HospitalComment on above:Performed By: #### RENAL #### [facility] [address] [place] [address] Dr. Ember TeagueWBC (Bld) [#/Vol]10*3/uLCleveland Clinic Mercy HospitalComment on above:Performed By: #### RENAL #### [facility] [address] [place] [address] Dr. Ember TeagueXR CHEST 2 Von 93-66-0052FE CHEST 2 VEXAMINATION: XR CHEST 2 V, , 10/24/2022 10:05 AM EST INDICATION: Acute bronchitis HISTORY: Ordering Provider Reason for Exam: Technologist Note: Additional: COMPARISON: Chest x-ray dated 11/17/2020. TECHNIQUE: Chest x-ray: Two views. FINDINGS: No pneumothorax, pleural effusion or focal airspace consolidation. Heart is normal in size. Patient is postmedian sternotomy. IMPRESSION: No acute cardiopulmonary process. Electronically authenticated by: ANGELINA BRISENO Date: 2022-10-24 16:22[facility] HospitalFERRITINon 38-51-3571Brkfftgj [Mass/Vol]612.0 ng/mLCritically high8.0-252.0The [facility] HospitalComment on above:Performed By: #### FERR, FETIBC #### [facility] [address] [place] [address] Dr. Ember TeagueHEMOGRAM AND PLATELon 52-77-9194Ftoruaiegi (Bld) [Volume fraction]28.1 %Critically low36.0-48.0The [facility] HospitalComaspirus ironwood hospital on above: Performed By: #### CBC #### [facility] [address] [place] [address] Dr. Ember TeagueHemoglobin (Bld) [Mass/Vol]9.7 g/dLCritically low12.0-16.0The [facility] HospitalComment on above:Performed By: #### CBC #### [facility] [address] [place] [address] Dr. Ember Villafuerte (RBC) [Entitic mass]31.3 icAhpfqf66.7-34.0The [facility] HospitalComment on above:Performed By: #### CBC #### [facility] [address] [place] [address] Dr. Ember Villafuerte (RBC) [Mass/Vol]34.5 g/lMBrragf91.9-35.2The [facility] HospitalComment on above:Performed By: #### CBC #### [facility] [address] [place] [address] Dr. Ember Villafuerte (RBC) [Entitic vol]90.6 nBVprgdu79.0-99.0The [facility] HospitalComment on above:Performed By: #### CBC #### [facility] [address] [place] [address] Dr. Ember TeaguePLT183 103/ayAtsrfg247-436Lkg [facility] HospitalComment on above: Performed By: #### CBC #### [facility] [address] [place] [address] Dr. Ember MannC3.10 106/ulCritically low4.20-5.40The [facility] HospitalComment on above:Performed By: #### CBC #### [facility] [address] [place] [address] Dr. Ember TeagueWBC7.2 103/ulNormal4.0-11.0The [facility] HospitalComment on above: Performed By: #### CBC #### [facility] [address] [place] [address] Dr. Ember Amador AND [facility] 09-18-2022% BKEHKQCMUD41.0 %NormalThe [facility] HospitalComment on above:Performed By: #### FERR, FETIBC #### [facility] [address] [place] [address] Dr. Ember Amador [Mass/Vol]77.0 ug/dVSgzfjy65.0-170.0[facility] Comment on above:Performed By: #### FERR, FETIBC #### [facility] [address] [address] [address] Ember TeagueTIBC ETVYJJ602.0 ug/dLCritically uvh951.0-450.0The [facility] HospitalComment on above:Performed By: #### FERR, FETIBC #### [facility] [address] [place] [address] Dr. Ember MackayAL FUNCTION PANELon 87-29-8763Fghzvyy [Mass/Vol]3.7 g/dLNormal 3.4-5.0The [facility] HospitalComment on above:Performed By: #### RENAL #### [facility] [address] [place] [address] Dr. Ember TeagueCalcium [Mass/Vol]9.5 mg/dLNormal8.5-10.1[facility] Comment on above:Performed By: #### RENAL #### [facility] [address] [place] [address] Dr. Emebr TeagueChloride [Moles/Vol]103 mmol/VGhpxgm65-400TocFairfield Medical Center Comment on above:Performed By: #### RENAL #### [facility] [address] [place] [address] Dr. Ember TeagueCO2 [Moles/Vol]21.1 mmol/ZSjyvjt93.0-32.0[facility] Comment on above:Performed By: #### RENAL #### [facility] [address] [place] [address] Dr. Ember TeagueCreatinine [Mass/Vol]1.85 mg/dLCritically high0.55-1.02The [facility] HospitalComment on above:Performed By: #### RENAL #### [facility] [address] [place] [address] Dr. Pa ChangEGFR-AF VKMGNLML73 mL/min/1.06v1Vfvnjqhybx low>=60The [facility] HospitalComment on above:Performed By: #### RENAL #### [facility] [address] [place] [address] Dr. Pa ChangEGFR-NON AF HYLSFNLN11 mL/min/1.05d5Olqfegdhng low>=60The [facility] HospitalComment on above:Performed By: #### RENAL #### [facility] [address] [address] [address] Ember TeagueGlucose [Mass/Vol]183 mg/dLCritically npek66-594Xtb [facility] HospitalComment on above:Performed By: #### RENAL #### [facility] [facility] [address] [address] [address] Ember TeaguePhosphate [Mass/Vol]3.7 mg/dLNormal2.6-4.7The [facility] Comment on above:Performed By: #### RENAL #### [facility] [address] [address] [address] Ember TeaguePotassium [Moles/Vol]4.9 mmol/LNormal3.5-5.1The [facility] Comment on above:Performed By: #### RENAL #### [facility] [address] [address] [address] Ember TeagueSodium [Moles/Vol]138 mmol/TVjrkrt479-015Qju [facility] Comment on above:Performed By: #### RENAL #### [facility] [address] [address] [address] Ember TeagueUrea nitrogen [Mass/Vol]40.0 mg/dLCritically high7.0-18.0The [facility] HospitalComment on above:Performed By: #### RENAL #### [facility] [address] [place] [address] Dr. Ember CurryLTURE URINEon [id number] URINEIsolate 1 Citrobacter freundii >100,000 cfu/mL of ORGANISM [...] Nitrofurantoin 32 S F Trimethoprim/Sulfamethoxazole <=20 S FNormalThe [facility] HospitalComment on above:Performed By: #### RENAL #### [facility] [address] [place] [address] Dr. Ember Armenta [id number] peptide B (Bld) [Mass/Vol]408.0 pg/mL Normal<=1,800.0The [facility] HospitalComment on above:Performed By: #### PTHINT #### [facility] [address] [place] [address] Dr. Ember Persaud AUTO DIFFon 05-09-0159IYNY #0.0 103/ulNormal0.0-0.1The [facility] HospitalComment on above:Performed By: #### CBC #### [facility] [address] [place] [address] Dr. Ember TeagueBasophils/100 WBC (Bld)0.3 %Normal0.2-2.0The [facility] Comment on above:Performed By: #### CBC #### [facility] [address] [place] [address] Dr. Ember Calvert #0.1 103/ulNormal0.0-0.7The [facility] HospitalComment on above: Performed By: #### CBC #### [facility] [address] [place] [address] Dr. Ember Pedersenosinophils/100 WBC (Bld)1.9 %Normal0.9-7.0The [facility] Comment on above:Performed By: #### CBC #### [facility] [address] [place] [address] Dr. Ember Pedersenrythrocyte distribution width (RBC) [Ratio]15.2 %Critically high 11.0-15.0The [facility] HospitalComment on above:Performed By: #### CBC #### [facility] [address] [place] [address] Dr. Ember TeagueHematocrit (Bld) [Volume fraction]26.6 %Critically low36.0-48.0 [facility] HospitalComment on above:Performed By: #### CBC #### [facility] [address] [place] [address] Dr. Ember TeagueHemoglobin (Bld) [Mass/Vol]9.0 g/dLCritically low12.0-16.0The [facility] HospitalComment on above:Performed By: #### CBC #### [facility] [address] [place] [address] Dr. Ember Vargas #0.02 10e3/ulNormal0.00-0.03The [facility] HospitalComment on above:Performed By: #### CBC #### [facility] [address] [place] [address] Dr. Ember Vargas %0.3 %Normal0.0-0.5The [facility] HospitalComment on above: Performed By: #### CBC #### [facility] [address] [place] [address] Dr. Ember Means #1.9 103/ulNormal1.2-3.8The [facility] HospitalComment on above:Performed By: #### CBC #### [facility] [address] [place] [address] Dr. Ember Bradshawhocytes/100 WBC (Bld)32.4 %Xqwduo59.5-60.0The [facility] HospitalComment on above:Performed By: #### CBC #### [facility] [address] [place] [address] Dr. Ember MotleyUAL DIFF REQNONormalThe [facility] HospitalComment on above: Performed By: #### CBC #### [facility] [address] [place] [address] Dr. Ember Fitzpatrick (RBC) [Entitic mass]31.1 kcQhqxjc99.7-34.0The [facility] HospitalComment on above:Performed By: #### CBC #### [facility] [address] [place] [address] Dr. Ember Villafuerte (RBC) [Mass/Vol]33.8 g/mTVpbvjs34.9-35.2The [facility] HospitalComment on above:Performed By: #### CBC #### [facility] [address] [place] [address] Dr. Ember Neal (RBC) [Entitic vol]92.0 oEGgkwan84.0-99.0The [facility] HospitalComment on above:Performed By: #### CBC #### [facility] [address] [place] [address] Dr. Ember Leija #0.6 103/ulNormal0.3-0.8The [facility] HospitalComment on above:Performed By: #### CBC #### [facility] [address] [place] [address] Dr. Ember Fofanaocytes/100 WBC (Bld)10.0 %Normal1.7-12.0The [facility] Comment on above:Performed By: #### CBC #### [facility] [address] [place] [address] Dr. Ember Wilson #3.2 103/ulNormal1.4-6.5The [facility] HospitalComment on above:Performed By: #### CBC #### [facility] [address] [place] [address] Dr. Ember Chenutrophils/100 WBC (Bld)55.1 %Dkwzac02.0-75.0The [facility] HospitalComment on above:Performed By: #### CBC #### [facility] [address] [place] [address] Dr. Ember James mean volume (Bld) [Entitic vol]9.4 fLCritically low 9.5-13.5The [facility] HospitalComment on above:Performed By: #### CBC #### [facility] [address] [place] [address] Dr. Ember MckinleyT196 103/eiDepljq449-666Mao [facility] HospitalComment on above: Performed By: #### CBC #### [facility] [address] [place] [address] Dr. Ember TeagueRBC2.89 106/ulCritically low4.20-5.40The [facility] HospitalComment on above:Performed By: #### CBC #### [facility] [address] [place] [address] Dr. Ember TeagueWBC5.8 103/ulNormal4.0-11.0The [facility] HospitalComment on above: Performed By: #### CBC #### [facility] [address] [place] [address] Dr. Ember Nieves 14(COMP METB)on 01-53-4331Mjiecks [Mass/Vol]3.7 g/dLNormal 3.4-5.0The [facility] HospitalComment on above:Performed By: #### PTHINT #### [facility] [address] [place] [address] Dr. Ember TeagueAlbumin/Globulin [Mass ratio]1.0 {ratio}NormalThe [facility] HospitalComment on above:Performed By: #### PTHINT #### [facility] [address] [place] [address] Dr. Ember Swan [Catalytic activity/Vol]79 U/KQcgail31-523Rok [facility] HospitalComment on above:Performed By: #### PTHINT #### [facility] [address] [place] [address] Dr. Ember Bo [Catalytic activity/Vol]24 U/CHgbxhc10-64Ctp [facility] HospitalComment on above:Performed By: #### PTHINT #### [facility] [address] [place] [address] Dr. Ember Jaramillo gap [Moles/Vol]12.8 mmol/LNormalThe [facility] Comment on above:Performed By: #### PTHINT #### [facility] [address] [place] [address] Dr. Ember Pan [Catalytic activity/Vol]17 U/FZguxfl64-40Gdq [facility] HospitalComment on above:Performed By: #### PTHINT #### [facility] [address] [place] [address] Dr. Ember TeagueBilirubin [Mass/Vol]0.5 mg/dLNormal0.2-1.0The [facility] Comment on above:Performed By: #### PTHINT #### [facility] [address] [address] [address] Ember TeagueCalcium [Mass/Vol]9.4 mg/dLNormal8.5-10.1The [facility] Comment on above:Performed By: #### PTHINT #### [facility] [address] [address] [address] Ember TeagueChloride [Moles/Vol]101 mmol/DFtoseq53-633Uik [facility] Comment on above:Performed By: #### PTHINT #### [facility] [address] [place] [address] Dr. Ember TeagueCO2 [Moles/Vol]24.3 mmol/VWuswxu35.0-32.0The [facility] Comment on above:Performed By: #### PTHINT #### [facility] [address] [place] [address] Dr. Ember TeagueCreatinine [Mass/Vol]2.84 mg/dLCritically high0.55-1.02The [facility] HospitalComment on above:Performed By: #### PTHINT #### [facility] [address] [place] [address] Dr. Ember PedersenGFR-AF YCRWJVGV58 mL/min/1.76l1Nkhhvxoqrz low>=60The [facility] HospitalComment on above:Performed By: #### PTHINT #### [facility] [address] [place] [address] Dr. Ember PedersenGFR-NON AF HUMNJBNL12 mL/min/1.81n0Vdelhgxmrb low>=60The [facility] HospitalComment on above:Performed By: #### PTHINT #### [facility] [address] [place] [address] Dr. Ember TeagueGlobulin (S) [Mass/Vol]3.7 g/dLNormalThe [facility] HospitalComment on above:Performed By: #### PTHINT #### [facility] [address] [address] [address] Ember TeagueGlucose [Mass/Vol]174 mg/dLCritically lcle26-115Nua [facility] HospitalComment on above:Performed By: #### PTHINT #### [facility] [address] [address] [address] Ember TeaguePotassium [Moles/Vol]5.1 mmol/LNormal3.5-5.1The [facility] Comment on above:Performed By: #### PTHINT #### [facility] [address] [place] [address] Dr. Ember TeagueProtein [Mass/Vol]7.4 g/dLNormal6.4-8.2The [facility] Comment on above:Performed By: #### PTHINT #### [facility] [address] [place] [address] Dr. Ember TeagueSodium [Moles/Vol]133 mmol/LCritically fqp278-965Vgj [facility] HospitalComment on above:Performed By: #### PTHINT #### [facility] [address] [place] [address] Dr. Ember TeagueUrea nitrogen [Mass/Vol]68.0 mg/dLCritically high7.0-18.0The [facility] HospitalComment on above:Performed By: #### PTHINT #### [facility] [address] [place] [address] Dr. Ember TeagueUrea nitrogen/Creatinine [Mass ratio]23.9 mg/mgNormalThe [facility] HospitalComment on above:Performed By: #### PTHINT #### [facility] [address] [place] [address] Dr. Ember Miller, HIGH SENSITIVITYon 59-79-8304TQEPRG4.1 pg/mLNormal 4.0-51.3The [facility] HospitalComaspirus [facility] on above:Result Comment: CUT-OFF POINTS HAVE BEEN ESTABLISHED BASED ON THE FOURTH UNIVERSAL DEFINITIONS OF MYOCARDIAL INFARCTION. THE UPPER REFERENCE LIMIT (URL) OF TROPONIN, DEFINED THE 99TH PERCENTILE OF cTnI DISTRIBUTION IN A REFERENCE POPULATION, HAS BEEN CONFIRMED THE DECISION THRESHOLD FOR IN DIAGNOSIS.Performed By: #### PTHINT #### [facility] [address] [address] [address] Ember Amador RANDOM W/MICROSCOPICon [id number] SEENNormalNONE SEENFairfield Medical CenterComment on above:Performed By: #### CVDTBH #### [facility] [address] [address] [address] Ember TeagueBilirubin Ql (U)NegativeNormalNEGATIVEBluffton Hospital on above:Performed By: #### CVDTBH #### [facility] [address] [address] [address] Ember TeagueCASTNONE SEENNormalNONE SEENFairfield Medical CenterComment on above:Performed By: #### CVDTBH #### [facility] [address] [place] [address] Dr. Ember TeagueClarity (U)CLEARNormalCLEARFairfield Medical CenterComment on above: Performed By: #### CVDTBH #### [facility] [address] [place] [address] Dr. Ember Lianglor (U)LT. YELLOWNormalYMiddletown HospitalComment on above:Performed By: #### CVDTBH #### [facility] [address] [place] [address] Dr. Ember TeagueCrystals LM Nom (Urine sed)NONE SEENNormalNONE SEENFairfield Medical CenterComment on above:Performed By: #### CVDTBH #### [facility] [address] [address] [address] Pa ChangEpithelial cells LM Ql (Urine sed)FEWAbnormalNONE SEEN /RAREFairfield Medical CenterComment on above:Performed By: #### CVDTBH #### [facility] [address] [place] [address] Dr. Ember Núñezose Ql (U)NegativeNormalNEGATIVEFairfield Medical CenterComment on above:Performed By: #### CVDTBH #### [facility] [address] [place] [address] Dr. Yilan ChangHemoglobin Ql (U)NegativeNormalNEGATIVEFairfield Medical Center Comment on above:Performed By: #### CVDTBH #### [facility] [address] [address] [address] Ember TeagueKetones Ql (U)NegativeNormalNEGATIVEFairfield Medical CenterComment on above:Performed By: #### CVDTBH #### [facility] [address] [address] [address] Ember TeagueLEUKOCYTESNegativeNormalNEGATIVEFairfield Medical CenterComment on above:Performed By: #### CVDTBH #### [facility] [address] [place] [address] Dr. Ember TeagueMUCOUSNONE SEENNormalNONE SEENFairfield Medical CenterComment on above:Performed By: #### CVDTBH #### [facility] [address] [place] [address] Dr. Ember TeagueNitrite Ql (U)NegativeNormalNEGATIVEFairfield Medical CenterComment on above:Performed By: #### CVDTBH #### [facility] [address] [place] [address] Dr. Ember TeaguepH (U)5.5 [pH]Normal5-9Fair[facility] CenterComment on above: Performed By: #### CVDTBH #### [facility] [address] [place] [address] Dr. Ember TeagueRBCNONE SEENAbnormal0-2The [facility] HospitalComment on above: Performed By: #### CVDTBH #### [facility] [address] [address] [address] Ember TeagueSPEC GRAVITY1.837Ibihcx9.005-<=1.025The [facility] HospitalComment on above:Performed By: #### CVDTBH #### [facility] [address] [place] [address] Dr. Ember TeagueUA PROTEINNegativeNormalNEGATIVE/ TRACEThe [facility] Comment on above:Performed By: #### CVDTBH #### [facility] [address] [address] [address] Ember Sawyer Qn (U)0.2 {Esau'U}/dLNormal0.2 - 1.0The [facility] HospitalComment on above:Performed By: #### CVDTBH #### [facility] [address] [place] [address] Dr. Ember TeagueWBCNONE SEENNormalNONE SEENThe [facility] HospitalComment on above: Performed By: #### CVDTBH #### [facility] [address] [place] [address] Dr. Ember Persaud AUTO DIFFon [id number] #0.0 103/ulNormal0.0-0.1The [facility] HospitalComment on above:Performed By: #### CBC #### [facility] [address] [place] [address] Dr. Ember TeagueBasophils/100 WBC (Bld)0.3 %Normal0.2-2.0[facility] Comment on above:Performed By: #### CBC #### [facility] [address] [place] [address] Dr. Ember Calvert #0.2 103/ulNormal0.0-0.7The [facility] HospitalComment on above: Performed By: #### CBC #### [facility] [address] [place] [address] Dr. Ember Pedersenosinophils/100 WBC (Bld)3.7 %Normal0.9-7.0[facility] Comment on above:Performed By: #### CBC #### [facility] [address] [place] [address] Dr. Ember Pedersenrythrocyte distribution width (RBC) [Ratio]15.0 %Rfsiqb50.0-15.0 The [facility] HospitalComment on above:Performed By: #### CBC #### [facility] [address] [place] [address] Dr. Ember TeagueHematocrit (Bld) [Volume fraction]27.9 %Critically low36.0-48.0 The [facility] HospitalComment on above:Performed By: #### CBC #### [facility] [address] [place] [address] Dr. Ember TeagueHemoglobin (Bld) [Mass/Vol]9.7 g/dLCritically low12.0-16.0The [facility] HospitalComment on above:Performed By: #### CBC #### [facility] [address] [place] [address] Dr. Ember Vargas #0.01 10e3/ulNormal0.00-0.03The [facility] HospitalComment on above:Performed By: #### CBC #### [facility] [address] [place] [address] Dr. Ember Vargas %0.2 %Normal0.0-0.5The [facility] HospitalComment on above: Performed By: #### CBC #### [facility] [address] [place] [address] Dr. Ember Means #1.9 103/ulNormal1.2-3.8The [facility] HospitalComment on above:Performed By: #### CBC #### [facility] [address] [place] [address] Dr. Ember Bradshawhocytes/100 WBC (Bld)32.2 %Mfvvnc27.5-60.0The [facility] HospitalComment on above:Performed By: #### CBC #### [facility] [address] [place] [address] Dr. Ember MotleyUAL DIFF REQNONormalThe [facility] HospitalComment on above: Performed By: #### CBC #### [facility] [address] [place] [address] Dr. Ember Fitzpatrick (RBC) [Entitic mass]31.4 hsRylrqr58.7-34.0The [facility] HospitalComment on above:Performed By: #### CBC #### [facility] [address] [place] [address] Dr. Ember Villafuerte (RBC) [Mass/Vol]34.8 g/vMKgpbeh00.9-35.2The [facility] HospitalComment on above:Performed By: #### CBC #### [facility] [address] [place] [address] Dr. Ember Neal (RBC) [Entitic vol]90.3 wCCyrmwg56.0-99.0The [facility] HospitalComment on above:Performed By: #### CBC #### [facility] [address] [place] [address] Dr. Ember Leija #0.6 103/ulNormal0.3-0.8The [facility] HospitalComment on above:Performed By: #### CBC #### [facility] [address] [place] [address] Dr. Ember Fofanaocytes/100 WBC (Bld)9.8 %Normal1.7-12.0The [facility] Comment on above:Performed By: #### CBC #### [facility] [address] [place] [address] Dr. Ember Wilson #3.2 103/ulNormal1.4-6.5The [facility] HospitalComment on above:Performed By: #### CBC #### [facility] [address] [place] [address] Dr. Ember Chenutrophils/100 WBC (Bld)53.8 %Mecuet71.0-75.0The [facility] HospitalComment on above:Performed By: #### CBC #### [facility] [address] [place] [address] Dr. Ember Traylorlet mean volume (Bld) [Entitic vol]10.0 fLNormal9.5-13.5The [facility] HospitalComment on above:Performed By: #### CBC #### [facility] [address] [place] [address] Dr. Ember MckinleyT194 103/vcCpsitt795-415Ent [facility] HospitalComment on above: Performed By: #### CBC #### [facility] [address] [place] [address] Dr. Ember TeagueRBC3.09 106/ulCritically low4.20-5.40The [facility] HospitalComment on above:Performed By: #### CBC #### [facility] [address] [place] [address] Dr. Ember TeagueWBC6.0 103/ulNormal4.0-11.0The [facility] HospitalComment on above: Performed By: #### CBC #### [facility] [address] [place] [address] Dr. Ember Perales INTACTon 45-55-5129MNK, Iifqer84 pg/sHFbbmxp18-87Yyb [facility] HospitalComment on above:Performed By: #### PTHINT #### [facility] [address] [place] [address] Dr. Ember Persaud AUTO DIFFon [id number] #0.1 103/ulNormal0.0-0.1The [facility] HospitalComment on above:Performed By: #### CVDTBH #### [facility] [address] [place] [address] Dr. Ember Starkeysophils/100 WBC (Bld)0.6 %Normal0.2-2.0The [facility] Comment on above:Performed By: #### CVDTBH #### [facility] [address] [place] [address] Dr. Ember Calvert #0.2 103/ulNormal0.0-0.7The [facility] HospitalComment on above: Performed By: #### CVDTBH #### [facility] [address] [place] [address] Dr. Ember Pedersenosinophils/100 WBC (Bld)3.0 %Normal0.9-7.0The [facility] Comment on above:Performed By: #### CVDTBH #### [facility] [address] [place] [address] Dr. Ember Pedersenrythrocyte distribution width (RBC) [Ratio]14.2 %Prdrok20.0-15.0 The [facility] HospitalComment on above:Performed By: #### CVDTBH #### [facility] [address] [address] [address] Ember TeagueHematocrit (Bld) [Volume fraction]30.9 %Critically low36.0-48.0 The [facility] HospitalComment on above:Performed By: #### CVDTBH #### [facility] [address] [place] [address] Dr. Ember TeagueHemoglobin (Bld) [Mass/Vol]10.6 g/dLCritically low12.0-16.0The [facility] HospitalComment on above:Performed By: #### CVDTBH #### [facility] [address] [place] [address] Dr. Ember Vargas #0.04 10e3/ulCritically high0.00-0.03The [facility] Comment on above:Performed By: #### CVDTBH #### [facility] [address] [place] [address] Dr. Ember Vargas %0.5 %Normal0.0-0.5The [facility] HospitalComment on above: Performed By: #### CVDTBH #### [facility] [address] [place] [address] Dr. Ember Means #2.2 103/ulNormal1.2-3.8The [facility] HospitalComment on above:Performed By: #### CVDTBH #### [facility] [address] [place] [address] Dr. Ember Bradshawhocytes/100 WBC (Bld)27.0 %Wxtptp23.5-60.0The [facility] HospitalComment on above:Performed By: #### CVDTBH #### [facility] [address] [place] [address] Dr. Ember MotleyUAL DIFF REQNONormalThe [facility] HospitalComment on above: Performed By: #### CVDTBH #### [facility] [address] [place] [address] Dr. Ember Fitzpatrick (RBC) [Entitic mass]31.2 wkIgqkcb63.7-34.0The [facility]any HospitalComment on above:Performed By: #### CVDTBH #### [facility] [address] [place] [address] Dr. Ember Villafuerte (RBC) [Mass/Vol]34.3 g/vDHjiiks16.9-35.2The [facility] HospitalComment on above:Performed By: #### CVDTBH #### [facility] [address] [place] [address] Dr. Ember Villafuerte (RBC) [Entitic vol]90.9 nXEcvodw71.0-99.0The [facility] HospitalComment on above:Performed By: #### CVDTBH #### [facility] [address] [place] [address] Dr. Ember Leija #0.7 103/ulNormal0.3-0.8The [facility] HospitalComment on above:Performed By: #### CVDTBH #### [facility] [address] [place] [address] Dr. Ember Fofanaocytes/100 WBC (Bld)9.2 %Normal1.7-12.0The [facility] Comment on above:Performed By: #### CVDTBH #### [facility] [address] [place] [address] Dr. Ember Wilson #4.8 103/ulNormal1.4-6.5The [facility] HospitalComment on above:Performed By: #### CVDTBH #### [facility] [address] [place] [address] Dr. Ember Fowlerophils/100 WBC (Bld)59.7 %Fzozlo32.0-75.0The [facility] HospitalComment on above:Performed By: #### CVDTBH #### [facility] [address] [place] [address] Dr. Ember Traylorlet mean volume (Bld) [Entitic vol]9.3 fLCritically low 9.5-13.5The [facility] HospitalComment on above:Performed By: #### CVDTBH #### [facility] [address] [place] [address] Dr. Ember TeaguePLT227 103/jcUqqbob428-279Vbj [facility] HospitalComment on above: Performed By: #### CVDTBH #### [facility] [address] [address] [address] Ember TeagueRBC3.40 106/ulCritically low4.20-5.40The [facility] HospitalComment on above:Performed By: #### CVDTBH #### [facility] [address] [address] [address] Ember TeagueWBC8.0 103/ulNormal4.0-11.0The [facility] HospitalComment on above: Performed By: #### CVDTBH #### [facility] [address] [address] [address] Ember TeagueMRI LSPINE WO CONon [id number] LSPINE WO CONEXAMINATION: MRI LSPINE WO CON HISTORY: Collapse of [...] Electronically authenticated by: YANET HUERTA Date: 2022-06-25 08:[address] [place], [place] [address]RENAL FUNCTION PANELon 78-01-8775Ssumypz [Mass/Vol]3.9 g/dL Normal3.4-5.0[facility] CenterComment on above:Performed By: #### PTHINT #### [facility] [address] [address] [address] Ember TeagueCalcium [Mass/Vol]9.5 mg/dLNormal8.5-10.1[facility] Comment on above:Performed By: #### PTHINT #### [facility] [address] [address] [address] Ember TeagueChloride [Moles/Vol]102 mmol/WOguezj75-961QueFairfield Medical Center Comment on above:Performed By: #### PTHINT #### [facility] [address] [address] [address] Ember TeagueCO2 [Moles/Vol]23.8 mmol/BKyvmap38.0-32.0[facility] Comment on above:Performed By: #### PTHINT #### [facility] [address] [address] [address] Ember TeagueCreatinine [Mass/Vol]1.75 mg/dLCritically high0.55-1.02[facility] CenterComment on above:Performed By: #### PTHINT #### [facility] [address] [address] [address] Ember PedersenGFR-AF WJWVFFMH53 mL/min/1.83t4Kjgeayqcow low>=60The [facility] HospitalComment on above:Performed By: #### PTHINT #### [facility] [address] [address] [address] Ember PedersenGFR-NON AF FOORVTNY63 mL/min/1.54q9Xpoaqzmwrx low>=60The [facility] HospitalComment on above:Performed By: #### PTHINT #### [facility] [address] [place] [address] Dr. Ember TeagueGlucose [Mass/Vol]199 mg/dLCritically gvpa52-117Xkh [facility] HospitalComment on above:Performed By: #### PTHINT #### [facility] [address] [place] [address] Dr. Ember TeaguePhosphate [Mass/Vol]4.3 mg/dLNormal2.6-4.7The [facility] Comment on above:Performed By: #### PTHINT #### [facility] [address] [place] [address] Dr. Ember TeaguePotassium [Moles/Vol]4.9 mmol/LNormal3.5-5.1[facility] Comment on above:Performed By: #### PTHINT #### [facility] [address] [place] [address] Dr. Ember TeagueSodium [Moles/Vol]135 mmol/LCritically srz687-801YsfFairfield Medical CenterComment on above:Performed By: #### PTHINT #### [facility] [address] [place] [address] Dr. Ember TeagueUrea nitrogen [Mass/Vol]34.0 mg/dLCritically high7.0-18.0[facility] CenterComment on above:Performed By: #### PTHINT #### [facility] [address] [place] [address] Dr. Ember TeagueVITAMIN D 25 OHon 50-02-7172KBJ D 25-OH40.6 ng/mLNormalFairfield Medical CenterComment on above:Performed By: #### PTHINT #### [facility] [address] [place] [address] Dr. Ember GarciaT D RANGESSEE BELOWNormalThSt. Anthony's HospitalComment on above: Result Comment: <20 ng/mL Vit D deficient 20 - <30 ng/mL Vit D insufficient 30 - 100 ng/mL Vit D sufficient >100 ng/mL Potential ToxicityPerformed By: #### PTHINT #### [facility] [address] [place] [address] [address] [address] Ember TeagueCovid-19 PCR ([facility])on [id number]-CoV-2 (COVID-19) RNA ALEXX+probe Ql (Unsp spec)Not detectedNormalNOT DETECTEDThe [facility] Comment on above:Result Comment: This test is not yet approved or cleared by the [place] FDA. When there are no FDA-approved or cleared tests available, and other criteria are met, FDA can make tests available under an emergency access mechanism called an Emergency Use Authorization (EUA). The EUA for this test is supported by the [place] of Health and Human Service's (HHS's) declaration that circumstances exist to justify the emergency use of in vitro diagnostics for the detection and/or diagnosis of the virus that causes COVID- 19. This EUA will remain in effect (meaning [...] of clinical signs and symptoms consistent with SARS-CoV-2.Performed By: #### [facility] #### [facility] [address] [place], [place] [id number] Dr. Ember TeagueCT [facility] WO CONon [id number] [facility] CONEXAMINATION: [facility] WO CON, 06/01/2022 7:48 AM EDT HISTORY: [...] Electronically authenticated by: YANET HUERTA Date: 2022-06-01 18:02[facility]XR L[facility] MIN 4 VIEWSon [id number] LSPINE MIN 4 VIEWS EXAMINATION: XR LSPINE [...] Electronically authenticated by: YANET HUERTA Date: 2022-05-21 15:25[facility] HospitalPTH INTACTon 10-84-3631TCC, Mrggtt20 pg/nUKqdqlc24-41Eto [facility] HospitalComment on above:Performed By: #### CVDTBH #### [facility] [address] [place] [address] Dr. Ember Sosa 25-[place] LABCORPon 06-74-8531Kvdadhz D, 25-Jfbwvsn17.1 ng/mL Critically low30.0-100.0The [facility] HospitalComment on above:Result Comment: Vitamin D deficiency has been defined by the [place] of [employer] and an Endocrine Society practice guideline as a level of serum 25-OH vitamin D less than 20 ng/mL (1,2). The Endocrine Society went on to further define vitamin D insufficiency as a level between 21 and 29 ng/mL (2). 1. IOM ([place] of [employer]). 2010. Dietary reference intakes for calcium and D. [place]: The National Academies Press. 2. Sherice HUNT, Wendy WILSON, Huan ZHONG, et al. Evaluation, treatment, and prevention of vitamin D deficiency: an Endocrine Society clinical practice guideline. JCEM. 2010; 96(7):1911-30.Performed By: #### RENAL #### [facility] [address] [place] [address] Dr. Ember TeagueFERRITINon 02-54-7845Stvsuleo [Mass/Vol]590.0 ng/mLCritically high8.0-252.0The [facility] HospitalComment on above:Performed By: #### RENAL #### [facility] [address] [place] [address] Dr. Ember TeagueHEMOGRAM AND PLATELon 51-01-0893Hzdgdierxl (Bld) [Volume fraction]28.4 %Critically low36.0-48.0The [facility] HospitalComment on above: Performed By: #### CVDTBH #### [facility] [address] [place] [address] Dr. Ember TeagueHemoglobin (Bld) [Mass/Vol]9.6 g/dLCritically low12.0-16.0The [facility] HospitalComment on above:Performed By: #### CVDTBH #### [facility] [address] [place] [address] Dr. Ember Villafuerte (RBC) [Entitic mass]31.0 sfTncqsz98.7-34.0The [facility] HospitalComment on above:Performed By: #### CVDTBH #### [facility] [address] [place] [address] Dr. Ebmer Villafuerte (RBC) [Mass/Vol]33.8 g/rFFmakgu80.9-35.2The [facility] HospitalComment on above:Performed By: #### CVDTBH #### [facility] [address] [address] [address] Ember VillafuerteV (RBC) [Entitic vol]91.6 oCQtwtrk01.0-99.0The [facility] HospitalComment on above:Performed By: #### CVDTBH #### [facility] [address] [address] [address] Ember TeaguePLT189 103/zzGurwvh112-828Hml [facility] HospitalComment on above: Performed By: #### CVDTBH #### [facility] [address] [place] [address] Dr. Ember TeagueRBC3.10 106/ulCritically low4.20-5.40The [facility] HospitalComment on above:Performed By: #### CVDTBH #### [facility] [address] [place] [address] Dr. Ember TeagueWBC6.2 103/ulNormal4.0-11.0The [facility] HospitalComment on above: Performed By: #### CVDTBH #### [facility] [address] [place] [address] Dr. Ember Amador AND TIBCon 05-02-2022% CSEIPHYRZV90.3 %NormalThe [facility] HospitalComment on above:Performed By: #### RENAL #### [facility] [address] [place] [address] Dr. Ember Amador [Mass/Vol]69.0 ug/fFVzrchx74.0-170.0The [facility] Comment on above:Performed By: #### RENAL #### [facility] [address] [place] [address] Dr. Ember TeagueTIBC KBYDDF980.0 ug/dLCritically jex543.0-450.0The [facility] HospitalComment on above:Performed By: #### RENAL #### [facility] [address] [place] [address] Dr. Ember TeagueMAGNESIUMon 69-41-9732Cjwqfgfof [Mass/Vol]1.7 mg/dLCritically low 1.8-2.4The [facility] HospitalComment on above:Performed By: #### CVDTBH #### [facility] [address] [place] [address] Dr. Ember Harding FUNCTION PANELon 88-90-1536Tffdwvw [Mass/Vol]3.6 g/dLNormal 3.4-5.0The [facility] HospitalComment on above:Performed By: #### CVDTBH #### [facility] [address] [place] [address] Dr. Ember TeagueCalcium [Mass/Vol]9.2 mg/dLNormal8.5-10.1The [facility] Comment on above:Performed By: #### CVDTBH #### [facility] [address] [place] [address] Dr. Ember TeagueChloride [Moles/Vol]107 mmol/YVmcvjo57-963Nmt [facility] Comment on above:Performed By: #### CVDTBH #### [facility] [address] [place] [address] Dr. Ember TeagueCO2 [Moles/Vol]21.2 mmol/PUynafb29.0-32.0The [facility] Comment on above:Performed By: #### CVDTBH #### [facility] [address] [place] [address] Dr. Ember TeagueCreatinine [Mass/Vol]1.75 mg/dLCritically high0.55-1.02The [facility] HospitalComment on above:Performed By: #### CVDTBH #### [facility] [address] [place] [address] Dr. Ember PedersenGFR-AF ESFXQZNG08 mL/min/1.12j5Oikgmrmbuc low>=60The [facility] HospitalComment on above:Performed By: #### CVDTBH #### [facility] [address] [place] [address] Dr. Ember PedersenGFR-NON AF LOHIXSAH67 mL/min/1.72g9Thoeumpbpi low>=60The [facility] HospitalComment on above:Performed By: #### CVDTBH #### [facility] [address] [place] [address] Dr. Ember TeagueGlucose [Mass/Vol]193 mg/dLCritically mgwu26-922Xlb [facility] HospitalComment on above:Performed By: #### CVDTBH #### [facility] [address] [address] [address] Ember TeaguePhosphate [Mass/Vol]4.2 mg/dLNormal2.6-4.7The [facility] Comment on above:Performed By: #### CVDTBH #### [facility] [address] [place] [address] Dr. Ember TeaguePotassium [Moles/Vol]5.1 mmol/LNormal3.5-5.1The [facility] Comment on above:Performed By: #### CVDTBH #### [facility] [address] [place] [address] Dr. Ember TeagueSodium [Moles/Vol]139 mmol/YLcozcf215-910AzzFairfield Medical Center Comment on above:Performed By: #### CVDTBH #### [facility] [address] [place] [address] Dr. Ember TeagueUrea nitrogen [Mass/Vol]34.0 mg/dLCritically high7.0-18.0The [facility] HospitalComment on above:Performed By: #### CVDTBH #### [facility] [address] [place] [address] Dr. Ember Amador RANDOM W/MICROSCOPICon 44-56-5261JHCJOQJEPGZQTVelukwfcFAKV SEENFairfield Medical CenterComment on above:Performed By: #### CVDTBH #### [facility] [address] [place] [address] Dr. Ember TeagueBilirubin Ql (U)NegativeNormalNEGATIVEFairfield Medical Center Comment on above:Performed By: #### CVDTBH #### [facility] [address] [place] [address] Dr. Ember TeagueCASTNONE SEENNormalNONE SEENFairfield Medical CenterComment on above:Performed By: #### CVDTBH #### [facility] [address] [place] [address] Dr. Ember Hoffman (U)CLEARNormalCLEARFairfield Medical CenterComment on above: Performed By: #### CVDTBH #### [facility] [address] [address] [address] Ember Lofton (U)LT. YELLOWNormalYELLOWFairfield Medical CenterComment on above:Performed By: #### CVDTBH #### [facility] [address] [address] [address] Ember TeagueCrystals LM Nom (Urine sed)NONE SEENNormalNONE SEENFairfield Medical CenterComment on above:Performed By: #### CVDTBH #### [facility] [address] [place] [address] Dr. Pa ChangEpithelial cells LM Ql (Urine sed)MODERATEAbnormalNONE SEEN /RARE The [facility] HospitalComment on above:Performed By: #### CVDTBH #### [facility] [address] [address] [address] Ember TeagueGlucose Ql (U)NegativeNormalNEGATIVEFairfield Medical CenterComment on above:Performed By: #### CVDTBH #### [facility] [address] [place] [address] Dr. Ember TeagueHemoglobin Ql (U)NegativeNormalNEGATIVEBluffton Hospital on above:Performed By: #### CVDTBH #### [facility] [address] [address] [address] Ember TeagueKetones Ql (U)NegativeNormalNEGATIVEFairfield Medical CenterComment on above:Performed By: #### CVDTBH #### [facility] [address] [address] [address] Ember TeagueLEUKOCYTESTRACEAbnormalNEGATIVEFairfield Medical CenterComaspirus [facility] hospital on above:Performed By: #### CVDTBH #### [facility] [address] [place] [address] Dr. Ember TeagueMUCOUSNONE SEENNormalNONE SEENFairfield Medical CenterComment on above:Performed By: #### CVDTBH #### [facility] [address] [place] [address] Dr. Ember Vogttrite Ql (U)NegativeNormalNEGATIVEThe [facility] HospitalComment on above:Performed By: #### CVDTBH #### [facility] [address] [place] [address] Dr. Ember TeaguepH (U)5.0 [pH]Normal5-9The [facility] HospitalComment on above: Performed By: #### CVDTBH #### [facility] [address] [place] [address] Dr. Ember TeagueRBCNONE SEENAbnormal0-2The [facility] HospitalComment on above: Performed By: #### CVDTBH #### [facility] [address] [place] [address] Dr. Ember TeagueSPEC GRAVITY1.594Zoptqf0.005-<=1.025The [facility] HospitalComment on above:Performed By: #### CVDTBH #### [facility] [address] [place] [address] Dr. Ember Amador PROTEINTRACENormalNEGATIVE/ TRACEThe [facility] HospitalComment on above:Performed By: #### CVDTBH #### [facility] [address] [place] [address] Dr. Ember TeagueUrobilinogen Qn (U)0.2 {Esau'U}/dLNormal0.2 - 1.0The [facility] HospitalComment on above:Performed By: #### CVDTBH #### [facility] [address] [place] [address] Dr. Ember TeagueWBC0-2AbnormalNONE SEENThe [facility] HospitalComment on above: Performed By: #### CVDTBH #### [facility] [address] [place] [address] Dr. Ember TeagueURIC ACID SERUMon 46-80-7390Jfwww [Mass/Vol]4.4 mg/dLNormal 2.6-6.0The [facility] HospitalComment on above:Performed By: #### CBC #### [facility] [address] [place], [place] [address] Dr. Ember Henderson T PROTEIN CREAT RATIOon 82-44-3258Vilycup (U) [Mass/Vol] 33.7 mg/dLCritically high<=12.0[facility] Medical CenterComment on above:Performed By: #### CVDTBH #### [facility] [address] [address] [address] Ember Logan PROT CREAT RAT0.69NormalThe [facility] HospitalComment on above: Performed By: #### CVDTBH #### [facility] [address] [address] [address] Ember Henderson CREAT48.93 mg/zLJiamkk38.00-300.00The [facility] Comment on above:Performed By: #### CVDTBH #### [facility] [address] [address] [address] Ember Teague Vital Signs Date TimeVital SignValuePerforming ErraiigkoXnvtgwke25-63-2206 09:03-0400Body etgbnk052.91 cmDhruv Gutierres MD Work Phone: [phone]10-01-2025 09:03-0400 Body mass index (BMI) [Ratio]30 kg/n5SxgtqldDhruv Gutierres MD Work Phone: [phone]10-01-2025 09:03-0400 Body .5 [degF]Dhruv Gutierres MD Work Phone: [phone]10-01-2025 09:03-0400 Body .78 kgDhruv Gutierres MD Work Phone: [phone]10-01-2025 09:03-0400 Diastolic blood mm[Hg]Dhruv Gutierres MD Work Phone: [phone]10-01-2025 09:03-0400 Heart rate66 /Pratibha Gutierres MD Work Phone: [phone]10-01-2025 09:03-0400 Respiratory rate18 /minDsamantha Gutierres MD Work Phone: [facility]10-01-2025 09:03-0400 SaO2% (BldA) [Mass fraction]97 %Dhruv Gutierres MD Work Phone: [facility]10-01-2025 09:03-0400 Systolic blood sxvnfwxe052 mm[Hg]Dhruv Gutierres MD Work Phone: [phone]09-08-2025 10:11-0400 Body pnuywx523.8 Mj Pope MD Work Phone: [phone] [place], [place] [address]Dmfokuhfcy64-99-6682 10:11-0400Body mass index (BMI) [Ratio]32.28 kg/w4ZnxinLorraine Pope MD Work Phone: [phone] [place], [place] [address]Wicmzeruzg07-31-9518 10:110400Body cimkmk22.64 kgLorraine Pope MD Work Phone: [phone] [place], [place] [address]Dgiwvvtndq55-59-2629 10:11-0400Diastolic blood pkijirjc33 mm[Hg]Lorraine Pope MD Work Phone: [phone] [place], [place] [address]Wlsfhibqjk25-78-4022 10:11-0400Heart rate68 /min Lorraine Pope MD Work Phone: [phone] [place], [place] [address]Fwudckgtgb33-66-3591 10:110400Respiratory rate16 /minLorraine Pope MD Work Phone: [phone])[facility] [place], [place] [address]Atmdushase35-81-2817 10:118729MeX0% (BldA) [Mass fraction]97 %Lorraine Pope MD Work Phone: [phone] [place], [place] [address]Nljaftfyfl91-42-5795 10:110400Systolic blood mm[Hg]Lorraine Pope MD Work Phone: [phone]05-12-2025 09:51-0400Body owyudy599.9 Mj Pope MD Work Phone: [phone] [place], [place] [address]Pllictfgei58-06-9159 09:51-0400Body mass index (BMI) [Ratio]31 kg/e2HmzabLorraine Pope MD Work Phone: [phone]05-12-2025 09:51-0400Body slukmn50.45 kgLorraine Pope MD Work Phone: [phone]05-12-2025 09:51-0400Diastolic blood lzpbquws57 mm[Hg]Lorraine Pope MD Work Phone: [phone]05-12-2025 09:51-0400Heart rate63 /min Lorraine Pope MD Work Phone: [phone] [place], [place] [address]05-12-2025 09:51-0400Respiratory rate16 /minLorraine Pope MD Work Phone: [phone]05-12-2025 09:51-1544OpQ5% (BldA) [Mass fraction]97 %Lorraine Pope MD Work Phone: [phone] [place], [place] [address]40905-12-2025 09:51-0400Systolic blood tjeytgim301 mm[Hg]Lorraine Pope MD Work Phone: [phone])[address]04-10-2025 09:15-0400Body .91 [facility] 09:15-0400Body mass index (BMI) [Ratio]30.8 kg/l0WdspswcemFort [facility]04-10-2025 09:15-0400Body ixuequmnljg45.2 [degF][facility]04-10-2025 09:15-0400Body .05 kg[facility]04-10-20[facility] 09:15-0400Diastolic blood xrltoyot56 mm[Hg][facility]04-10-2025 09:15-0400 Heart rate65 /[facility]04-10-2025 09:15-0400 Respiratory rate16 /[facility]04-10-2025 09:15-0400 SaO2% (BldA) [Mass fraction]98 %[facility]04-10-2025 09:15-0400Systolic blood sgchdzqa409 mm[Hg][facility] 11-16-2024 09:49-0500Body qowuvf774.9 Mj Pope MD Work Phone: [phone] [place], [place] [address]Tcvcibulrt33-24-0470 09:49-0500Body mass index (BMI) [Ratio]30.53 kg/m8AbkgpLorraine Pope MD Work Phone: [phone]02-10-2025 09:49-0500Body zokwos15.09 kgLorraine Pope MD Work Phone: [phone] [place], [place] [address]Evlmdibtru57-99-7270 09:49-0500Diastolic blood mrvelsii03 mm[Hg]Lorraine Pope MD Work Phone: [phone]02-10-2025 09:49-0500Heart rate62 /min Lorraine Pope MD Work Phone: [phone]02-10-2025 09:49-0500Respiratory rate16 /minLorraine Pope MD Work Phone: [phone] [place], [place] [address]Wbjwdwdjbq46-91-0365 09:49-5931NnD1% (BldA) [Mass fraction]97 %Lorraine Pope MD Work Phone: [phone] [place], [place] [address]Kgzafqxnlx63-53-9786 09:49-0500Systolic blood xhavszps153 mm[Hg]Lorraine Pope MD Work Phone: [phone]04-12-2024 12:56-0400Body mfnhep560.9 Yesica Delvalle MD Work Phone: [phone] [place], [place] 7413704-12-2024 12:56-0400Body mass index (BMI) [Ratio]30.05 kg/m2Thuan Delvalle MD Work Phone: [phone])425-[address] [place], [place] 7413704-12-2024 12:56-0400Body ouwibo00.73 kgThuan Delvalle MD Work Phone: [phone])705-[address] [place], [place] 7413704-12-2024 12:56-0400Diastolic blood xhlhnaid58 mm[Hg]Thuan Delvalle MD Work Phone: [facility]04-12-2024 12:56-0400Heart rate 60 /minThuan Delvalle MD Work Phone: [place]04-12-2024 12:56-6528OeU4% (BldA) [Mass fraction]98 %Thuan Delvalle MD Work Phone: [place]04-12-2024 12:56-0400Systolic blood tqrntbol482 mm[Hg]Thuan Delvalle MD Work Phone: [place]02-12-2024 10:00-0500Body majvcr413.91 cmAbdul Doreen Other [facility] [employer] Other 02-12-2024 10:00-0500Body mass index (BMI) [Ratio] 29.85 kg/l6Vablp Doreen Other [facility] Other 02-12-2024 10:00-0500Body djifcfqcurd18.3 [degF]Ron Doreen Other [facility] Other 02-12-2024 10:00-0500Body cfpnzo50.19 kgAbdul Doreen Other [employer] Other 02-12-2024 10:00-0500Diastolic blood iczlfjss11 mm[Hg] Ron Doreen Other [facility] Other 02-12-2024 10:00-0500Respiratory rate18 /minAbdul Doreen Other [employer] Other 02-12-2024 10:00-7927RgG3% (BldA) [Mass fraction]98 % Ron Doreen Other [facility] Other 02-12-2024 10:00-0500Systolic blood qnazbnqu635 mm[Hg] Ron Doreen Other [employer] Other 01-29-2024 11:00-0500Body qzcniz658.91 cmAbdul Doreen Other [employer] Other 01-29-2024 11:00-0500Body mass index (BMI) [Ratio] 30.17 kg/z7Vzgpo Doreen Other [employer] Other 01-29-2024 11:00-0500Body irwztwysiox65.6 [degF]Ron Doreen Other [employer] Other 01-29-2024 11:00-0500Body cnaomq50.09 kgAbdul Doreen Other [employer] Other 01-29-2024 11:00-0500Diastolic blood aqatmsiv93 mm[Hg] Ron Doreen Other [employer] Other 01-29-2024 11:00-0500Respiratory rate18 /minAbdul Doreen Other [employer] Other 01-29-2024 11:00-8944DqR6% (BldA) [Mass fraction]98 % Ron Doreen Other [employer] Other 01-29-2024 11:00-0500Systolic blood twkimjsx215 mm[Hg] Ron Doreen Other [employer] Other 01-09-2024 13:00-0500Body .91 cmAbdul Doreen Other [employer] Other 01-09-2024 13:00-0500Body mass index (BMI) [Ratio] 29.82 kg/f2Fynxb Doreen Other [employer] Other 01-09-2024 13:00-0500Body .5 [degF]Ron Doreen Other [employer] Other 01-09-2024 13:00-0500Body wsqqeg08.1 kgAbdul Doreen Other [employer] Other 01-09-2024 13:00-0500Diastolic blood xanvzabb03 mm[Hg] Ron Doreen Other [employer] Other 01-09-2024 13:00-0500Respiratory rate18 /minAbdul Doreen Other [employer] Other 01-09-2024 13:00-0836PfY0% (BldA) [Mass fraction]98 % Ron Doreen Other [employer] Other 01-09-2024 13:00-0500Systolic blood mm[Hg] Ron Doreen Other [employer] Other 11-21-2023 09:40-0500Body .91 cmAzijanet Mensahs Other [employer] Other 11-21-2023 09:40-0500Body mass index (BMI) [Ratio]30.2 kg/m2Aziz Bakjuniors Other [employer] Other 11-21-2023 09:40-0500Body wwqixdstjut92.7 [degF]Aziz Rodricks Other [employer] Other 11-21-2023 09:40-0500Body .18 kgAziz Bakjuniors Other [employer] Other 11-21-2023 09:40-0500Diastolic blood pjyjpmkn36 mm[Hg] Aziz Rodricks Other [employer] Other 11-21-2023 09:40-0500Respiratory rate18 /minAzduc Bakjuniors Other [employer] Other 11-21-2023 09:40-3897WxU5% (BldA) [Mass fraction]98 % Aziz Bakhous Other [employer] Other 11-21-2023 09:40-0500Systolic blood sihhqvft179 mm[Hg] Aziz Bakjuniors Other [employer] Other 11-09-2023 10:20-0500Body lmewme763.91 cmAbdul Doreen Other [employer] Other 11-09-2023 10:20-0500Body mass index (BMI) [Ratio]30.2 kg/f1Onucr Doreen Other [employer] Other 11-09-2023 10:20-0500Body nhkujmzxzyi66.1 [degF]Ron Doreen Other [employer] Other 11-09-2023 10:20-0500Body higtqn14.18 kgAbdul Doreen Other [employer] Other 11-09-2023 10:20-0500Diastolic blood tjsujvoi85 mm[Hg] Ron Doreen Other [employer] Other 11-09-2023 10:20-0500Respiratory rate18 /minAbdul Doreen Other [employer] Other 11-09-2023 10:20-2991AvH1% (BldA) [Mass fraction]98 % Ron Doreen Other [employer] Other 11-09-2023 10:20-0500Systolic blood muesljsh255 mm[Hg] Ron Doreen Other [employer] Other 11-07-2023 15:40-0500Body fznqev183.91 cmAbdul Doreen Other [employer] Other 11-07-2023 15:40-0500Body mass index (BMI) [Ratio] 30.24 kg/u1Rxdqz Doreen Other [employer] Other 11-07-2023 15:40-0500Body epyyqxbnewj01.2 [degF]Ron Doreen Other [employer] Other 11-07-2023 15:40-0500Body xfhxyt39.27 kgAbdul Doreen Other [employer] Other 11-07-2023 15:40-0500Diastolic blood mm[Hg] Ron Doreen Other [employer] Other 11-07-2023 15:40-0500Respiratory rate18 /minAbdul Doreen Other [employer] Other 11-07-2023 15:40-3038FvZ8% (BldA) [Mass fraction]98 % Ron Doreen Other [employer] Other 11-07-2023 15:40-0500Systolic blood euqrjvfn327 mm[Hg] Ron Doreen Other [employer] Other 10-26-2023 13:00-0400Body iopqna840.91 cmAbdul Doreen Other [employer] Other 10-26-2023 13:00-0400Body mass index (BMI) [Ratio] 30.55 kg/t4Ulyps Doreen Other [employer] Other 10-26-2023 13:00-0400Body ynmgfcjqgxl19.8 [degF]Ron Doreen Other [employer] Other 10-26-2023 13:00-0400Body .18 kgAbdul Doreen Other [employer] Other 10-26-2023 13:00-0400Diastolic blood oiisihvf66 mm[Hg] Ron Doreen Other [employer] Other 10-26-2023 13:00-0400Respiratory rate18 /minAbdul Doreen Other [employer] Other 10-26-2023 13:00-0288RtE9% (BldA) [Mass fraction]98 % Ron Doreen Other [employer] Other 10-26-2023 13:00-0400Systolic blood odwriiau893 mm[Hg] Ron Doreen Other [employer] Other 09-18-2023 11:40-0400Body .91 cmAbdul Doreen Other [employer] Other 09-18-2023 11:40-0400Body mass index (BMI) [Ratio] 29.89 kg/c7Blhym Doreen Other [employer] Other 09-18-2023 11:40-0400Body bvnlcorwzdb54.3 [degF]Ron Doreen Other [employer] Other 09-18-2023 11:40-0400Body .28 kgAbdul Doreen Other [employer] Other 09-18-2023 11:40-0400Diastolic blood jxnsiuvu87 mm[Hg] Ron Doreen Other [employer] Other 09-18-2023 11:40-0400Respiratory rate18 /minAbdul Doreen Other [facility] [employer] Other 09-18-2023 11:40-6371BtU1% (BldA) [Mass fraction]99 % Ron Doreen Other [place] [employer] Other 09-18-2023 11:40-0400Systolic blood itdpovbv125 mm[Hg] Ron Doreen Other [facility] [employer] Other 08-31-2023 15:20-0400Body vxexgo048.91 cmAbdul Doreen Other [place] [employer] Other 08-31-2023 15:20-0400Body mass index (BMI) [Ratio] 29.92 kg/o0Sqael Doreen Other [place] [employer] Other [id number] 15:20-0400Body .5 [degF]Ron Doreen Other [place] [employer] Other 08-31-2023 15:20-0400Body tyaszi97.37 kgAbdul Doreen Other [place] [employer] Other [id number] 15:20-0400Diastolic blood tiuccjrc88 mm[Hg] Ron Doreen Other [employer] Other 08-31-2023 15:20-0400Respiratory rate18 /minAbdul Doreen Other [employer] Other 08-31-2023 15:20-9616OaQ8% (BldA) [Mass fraction]99 % Ron Doreen Other [facility] [employer] Other 08-31-2023 15:20-0400Systolic blood heeledxw889 mm[Hg] Ron Doreen Other [employer] Other 07-25-2023 11:40-0400Body lbazow808.91 cmAbdul Doreen Other [employer] Other 07-25-2023 11:40-0400Body mass index (BMI) [Ratio] 30.52 kg/b1Ezpwp Doreen Other [employer] Other 07-25-2023 11:40-0400Body tmasxkwkwgs02.9 [degF]Ron Doreen Other [employer] Other 07-25-2023 11:40-0400Body osvceg49.09 kgAbdul Doreen Other [employer] Other 07-25-2023 11:40-0400Diastolic blood mm[Hg] Ron Doreen Other [employer] Other 07-25-2023 11:40-0400Respiratory rate18 /minAbdul Doreen Other [employer] Other 07-25-2023 11:40-0390OzZ6% (BldA) [Mass fraction]98 % Ron Doreen Other [employer] Other 07-25-2023 11:40-0400Systolic blood eehmuudo857 mm[Hg] Ron Doreen Other [employer] Other 07-01-2023 09:00-0400Body gykixu431.91 cmAbdul Doreen Other [place] [employer] Other 07-01-2023 09:00-0400Body mass index (BMI) [Ratio] 30.36 kg/j9Shbvc Doreen Other [employer] Other 07-01-2023 09:00-0400Body .64 kgAbdul Doreen Other [employer] Other 07-01-2023 09:00-0400Diastolic blood mm[Hg] Ron Doreen Other [employer] Other 07-01-2023 09:00-0400Respiratory rate18 /minAbdul Doreen Other [place] [employer] Other 07-01-2023 09:00-9170CrH6% (BldA) [Mass fraction]98 % Ron Doreen Other [place] [employer] Other 07-01-2023 09:00-0400Systolic blood pbcfafxf974 mm[Hg] Ron Doreen Other [employer] Other 06-27-2023 14:40-0400Body ayzzpq994.91 cmAbdul Doreen Other [employer] Other 06-27-2023 14:40-0400Body mass index (BMI) [Ratio] 30.55 kg/l7Kpjnk Doreen Other [employer] Other 06-27-2023 14:40-0400Body hupjbsnqzht95 [degF]Ron Doreen Other [employer] Other 06-27-2023 14:40-0400Body dvtuxc88.18 kgAbdul Doreen Other [employer] Other 06-27-2023 14:40-0400Diastolic blood vanygjid75 mm[Hg] Ron Doreen Other [employer] Other 06-27-2023 14:40-0400Respiratory rate18 /minAbdul Doreen Other [place] [employer] Other 06-27-2023 14:40-9013SyE2% (BldA) [Mass fraction]98 % Ron Doreen Other [place] [employer] Other 06-27-2023 14:40-0400Systolic blood kxhwptwu140 mm[Hg] Ron Doreen Other [employer] Other 06-01-2023 09:20-0400Body txgnpy643.91 cmAbdul Doreen Other [employer] Other 06-01-2023 09:20-0400Body mass index (BMI) [Ratio] 30.52 kg/t2Scagr Doreen Other [employer] Other 06-01-2023 09:20-0400Body zdmbgaoolbb65.1 [degF]Ron Doreen Other [employer] Other 06-01-2023 09:20-0400Body nvpvmo53.09 kgAbdul Doreen Other [employer] Other 06-01-2023 09:20-0400Diastolic blood icfjkbay31 mm[Hg] Ron Doreen Other [employer] Other 06-01-2023 09:20-0400Respiratory rate18 /minAbdul Doreen Other [employer] Other 06-01-2023 09:20-0701KmH9% (BldA) [Mass fraction]97 % Ron Doreen Other [employer] Other 06-01-2023 09:20-0400Systolic blood mm[Hg] Ron Doreen Other [employer] Other 072034-27-2465 13:20-0400Body yqoust393.91 cmAbdul Doreen Other [employer] Other [id number] 13:20-0400Body mass index (BMI) [Ratio] 30.68 kg/z9Eetbk Doreen Other [employer] Other 03-16-2023 13:20-0400Body tablpgmbyos41.1 [degF]Ron Doreen Other [employer] Other 03-16-2023 13:20-0400Body qogfto74.54 kgAbdul Doreen Other [employer] Other 03-16-2023 13:20-0400Diastolic blood mm[Hg] Ron Doreen Other [employer] Other 03-16-2023 13:20-0400Respiratory rate18 /minAbdul Doreen Other [employer] Other [id number] 13:20-6926XiJ7% (BldA) [Mass fraction]99 % Ron Doreen Other [employer] Other 261189-42-8230 13:20-0400Systolic blood lgeskung787 mm[Hg] Ron Doreen Other [employer] Other 01-30-2023 14:00-0500Body boigon235.91 cmAbdul Doreen Other [employer] Other 01-30-2023 14:00-0500Body mass index (BMI) [Ratio] 30.59 kg/i5Ghqoq Doreen Other [employer] Other 01-30-2023 14:00-0500Body oqipjktaekz16.8 [degF]Ron Doreen Other [employer] Other 01-30-2023 14:00-0500Body eduidt41.27 kgAbdul Doreen Other [employer] Other 01-30-2023 14:00-0500Diastolic blood jzamdxed08 mm[Hg] Ron Doreen Other [employer] Other 01-30-2023 14:00-0500Respiratory rate18 /minAbdul Doreen Other [employer] Other 01-30-2023 14:00-5246BkD4% (BldA) [Mass fraction]98 % Ron Doreen Other [employer] Other 01-30-2023 14:00-0500Systolic blood nxmbpnde276 mm[Hg] Ron Doreen Other [employer] Other 12-22-2022 16:00-0500Body vcpfcy007.91 cmEssreinaldo Rjmiller Other [employer] Other 12-22-2022 16:00-0500Body mass index (BMI) [Ratio] 30.55 kg/g1XjehbJana Monson Other [employer] Other 12-22-2022 16:00-0500Body vunsrejfhlx77.8 [degF]Varinderreinaldo Monson Other [employer] Other 12-22-2022 16:00-0500Body bfxgig84.18 kgJana Monson Other [employer] Other 12-22-2022 16:00-0500Diastolic blood mm[Hg] Jana Monson Other [employer] Other 12-22-2022 16:00-0500Respiratory rate18 /minEabbie Monson Other [employer] Other 12-22-2022 16:00-9827LgX2% (BldA) [Mass fraction]98 % Jana Monson Other [employer] Other 12-22-2022 16:00-0500Systolic blood jyjxatyk072 mm[Hg] Jana Monson Other [employer] Other 11-16-2022 12:00-0500Body ldzpyz350.91 cmAbdul Doreen Other [employer] Other 11-16-2022 12:00-0500Body mass index (BMI) [Ratio] 30.65 kg/z4Qamha Doreen Other [employer] Other 11-16-2022 12:00-0500Body bwjrhjyxuaf66.9 [degF]Ron Doreen Other [employer] Other 11-16-2022 12:00-0500Body pweknb18.45 kgAbdul Doreen Other [employer] Other 11-16-2022 12:00-0500Diastolic blood bwustlfg35 mm[Hg] Ron Doreen Other [employer] Other 11-16-2022 12:00-0500Respiratory rate18 /minAbdul Doreen Other [employer] Other 11-16-2022 12:00-4549StV1% (BldA) [Mass fraction]96 % Ron Doreen Other [employer] Other 11-16-2022 12:00-0500Systolic blood edshwual832 mm[Hg] Ron Doreen Other [employer] Other 08-02-2022 10:20-0400Body tftsto619.91 cmAbdul Doreen Other [employer] Other 08-02-2022 10:20-0400Body mass index (BMI) [Ratio] 31.54 kg/z4Udjdf Doreen Other [employer] Other 08-02-2022 10:20-0400Body xdsifdexizj89.6 [degF]Ron Doreen Other [employer] Other 08-02-2022 10:20-0400Body hiuwca37.99 kgAbdul Doreen Other [employer] Other 08-02-2022 10:20-0400Diastolic blood urhozxya74 mm[Hg] Ron Doreen Other [employer] Other 08-02-2022 10:20-0400Respiratory rate18 /minAbdul Doreen Other [employer] Other 08-02-2022 10:20-6664WrU2% (BldA) [Mass fraction]98 % Ron Doreen Other [employer] Other 08-02-2022 10:20-0400Systolic blood fkdnsbon230 mm[Hg] Ron Doreen Other [employer] Other 04-14-2022 10:20-0400Body .91 cmAbdul Doreen Other [employer] Other 04-14-2022 10:20-0400Body mass index (BMI) [Ratio]31 kg/i0Duzdb Doreen Other [employer] Other 04-14-2022 10:20-0400Body ktbukijjtxl31.4 [degF]Ron Doreen Other [employer] Other 04-14-2022 10:20-0400Body ylgqnk95.45 kgAbdul Doreen Other [employer] Other 04-14-2022 10:20-0400Diastolic blood mm[Hg] Ron Doreen Other [employer] Other 04-14-2022 10:20-0400Respiratory rate18 /minAbdul Doreen Other [employer] Other 04-14-2022 10:20-1945TmD7% (BldA) [Mass fraction]97 % Ron Doreen Other [employer] Other 04-14-2022 10:20-0400Systolic blood dvtsuazz121 mm[Hg] Ron Doreen Other [employer] Other Encounters Encounter DateEncounter TypeCare ProviderFacilityStart: 07-07-2025 End: 86-70-3922urkqzsusiqGyibabx M Hoy MD Work Phone: [facility] Work Phone: Start: 07-07-2025 End: 55-38-6428Lrqyrxi encounter procedureRon Martinez MD-[facility] Work Phone: Start: 80-10-4618Smu-patient / Non-visitRon Martinez MD -[facility] Work Phone: Start: 06-14-2025 End: 18-99-8778Afdlcp Zay Pope MD Work Phone: [facility]ologyStart: 06-14-2025 End: 03-67-6727Wybyopdenzel Pope MD Work Phone: [facility]ocrinologyStart: 06-14-2025 End: 48-02-9284Xcuzes outpatient visit 25 minutesAhfederica Pope MD Work Phone: [facility] EndocrinologyComment on above:Type 2 diabetes mellitus with hyperglycemia, with long-term 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 (HCC) (Primary Dx); Vitamin D deficiency; Microalbuminuria; Hyperlipemia, mixed ; Insulin long-term use (HCC); Primary hypertension ; Pema's disease ; Encounter for dietary consultation; Chronic renal disease, stage IV (HCC)Start: 06-14-2025 End: 40-91-2452jgyjsqohbaZGHMB F SABBAGHNot AvailableStart: 05-25-2025 End: 82-23-4521jxaqifotliVznumol M Hoy MD Work Phone: [facility] Work Phone: Start: 05-25-2025 End: 07-24-2893Demeijqb Naty Barfield MD-[facility] Start: 04-21-2025 End: 90-63-6536pskrjusluwRizwgsz M Hoy MD Work Phone: [facility] Work Phone: Start: 04-21-2025 End: 04-14-3172Yjahvlki Annie Lynne MD-[facility] Start: 03-23-2025 End: 17-34-7045Fjgnqu outpatient visit 15 minutesEmkatherin Longoria MD Work Phone: [facility] DERMComment on above:Seborrheic keratosis (Primary Dx); Seborrheic keratosis, inflamed; Solar purpura; LentiginesStart: 03-23-2025 End: 92-81-7083mkrzyqluxtQFWFG A PETITTINot AvailableStart: 03-23-2025 End: 51-90-0506Mneahujoey Longoria MD Work Phone: [facility] DERMStart: 03-23-2025 End: 18-87-7263Fssgkwjoey Longoria MD Work Phone: [facility] DERMStart: 03-07-2025 End: 08-43-9632UmwnqgNnjllpkcLinda Garcia APRN-AUDIENCE COORDINATOR Work Phone: [facility] CardiologyComment on above:Med RefillStart: 02-25-2025 End: 99-80-9582wpqwweeaseUFCH [facility]tart: 02-15-2025 End: 04-65-5658Xbjovhjoey Pope MD Work Phone: [facility] ENDOCRINOLOGYStart: 02-15-2025 End: 31-71-0886Vyqiipdenzel Pope MD Work Phone: [facility] ENDOCRINOLOGYStart: 02-15-2025 End: 34-67-2740Cvcsjj outpatient visit 25 minutesLorraine Pope MD Work Phone: [facility] ENDOCRINOLOGYComment on above:Type 2 diabetes mellitus with hyperglycemia, with long-term 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 (CMS/HCC) (Primary Dx); Vitamin D deficiency; Microalbuminuria; Hyperlipemia, mixed (CMS/HCC); Primary hypertension (CMS/HCC); Insulin long-term use (CMS/HCC); 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CMS/HCC); Encounter for dietary consultation; Chronic renal disease, stage IV (CMS/HCC)Start: 02-15-2025 End: 86-54-3514mmvgxtbsdlVYDVJRonna Maya AvailableStart: 01-14-2025 End: 28-97-9703upbseniskdKqipugmtlThe [facility] Work Phone: Start: 01-14-2025 End: 88-88-3461Bewdgsd encounter procedureFormerly [facility] Ne[facility] Eliel Work Phone: Start: 96-70-9946Wai-patient / Non-visitFormerly [facility] Work Phone: Start: 12-21-2024 End: 01-32-9138Hsfylttao encounterSushilarobert Marianadillonstephen [facility]ITALPro[facility]icians CardiologyStart: 12-12-2024 End: 92-14-1000OmbjtqPrlbuqh R Redfern NUT SHELLER-AUDIENCE COORDINATOR Work Phone: [facility] CardiologyComment on above:Med RefillStart: 11-27-2024 End: 68-77-5200bhtuhgvvyyKFDT [facility] Hospitaltart: 11-16-2024 End: 23-52-4333Dosuvu Zay Pope MD Work Phone: [facility] ENDOCRINOLOGYStart: 11-16-2024 End: 25-65-8447Mihyijdenzel Pope MD Work Phone: [facility] ENDOCRINOLOGYStart: 11-16-2024 End: 40-17-0753Pivoqj outpatient visit 25 minutesLorraine Pope MD Work Phone: [facility] ENDOCRINOLOGYComment on above:Type 2 diabetes mellitus with hyperglycemia, with long-term 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 (CMS/HCC) (Primary Dx); Vitamin D deficiency; Microalbuminuria; Hyperlipemia, mixed (CMS/HCC); Primary hypertension (CMS/HCC); Insulin long-term use (CMS/HCC); 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CMS/HCC); Encounter for dietary consultation; Chronic renal disease, stage IV (CMS/HCC)Start: 11-16-2024 End: 54-89-9083fhkzknpwcpXYJXL F SABBAGHNot AvailableStart: 09-28-2024 End: 12-00-9953Sbksua flowsGurinder Lai DPLico Work Phone: [facility] PODIATRYStart: 09-28-2024 End: 34-27-8373Jiztun flowsGurinder Lai DPM Work Phone: [facility] PODIATRYStart: 09-28-2024 End: 84-57-8263Pdsgonp encounter procedureGa Lai DPM Work Phone: [facility] PODIATRYComment on above:Onychomycosis (Primary Dx); Pain in both feet; Corns and callosities; Type 2 diabetes mellitus without complication, with long-term 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 (CMS/HCC)Start: 09-28-2024 End: 27-73-1454ljmqtzgcmrNUBYEHJEY H SMITHNot AvailableStart: 09-05-2024 End: 30-96-0838ZxrybgJiyrjcsnAniyah GALLOWAY Work Phone: [facility] CardiologyComment on above:Med RefillStart: 07-13-2024 End: 97-74-6572Wxhsevjoey Pope MD Work Phone: [facility] ENDOCRINOLOGYStart: 07-13-2024 End: 15-57-7577Qxviuodenzel Pope MD Work Phone: [facility] ENDOCRINOLOGYStart: 07-13-2024 End: 20-09-0566Jbnugq outpatient visit 25 minutesLorraine Pope MD Work Phone: [facility] ENDOCRINOLOGYComment on above:Type 2 diabetes mellitus with hyperglycemia, with long-term 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 (CMS/HCC) (Primary Dx); Vitamin D deficiency; Microalbuminuria; Hyperlipemia, mixed (CMS/HCC); Primary hypertension (CMS/HCC); Insulin long-term use (CMS/HCC); 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CMS/HCC); Encounter for dietary consultation; Chronic renal disease, stage IV (CMS/HCC)Start: 07-13-2024 End: 01-92-7300zgprxwkmkhPQKMPRonna Maya AvailableStart: 06-25-2024 End: 24-49-4263Pmqbnc Robi Lai DPM Work Phone: [facility] PODIATRYStart: 06-25-2024 End: 64-48-4526Ckjvnn flowsheetGa Josh Ming DPM Work Phone: [facility] PODIATRYStart: 06-25-2024 End: 20-46-2282Leeumkf encounter procedureCamarley Josh Ming DPM Work Phone: [facility] PODIATRYComment on above:Onychomycosis (Primary Dx); Pain in both feet; Corns and callosities; Type 2 diabetes mellitus without complication, with long-term 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 ([facility])Start: 06-25-2024 End: 57-27-6403dbndkgthnhDAYKGXXBD Josh MINGNot AvailableStart: 06-04-2024 End: 81-34-5945Vrgymd flowsheetEmily Amina Longoria MD Work Phone: [facility] DERMStart: 06-04-2024 End: 40-19-4963Glhkdt flowsheetEmkatherin Longoria MD Work Phone: [facility] DERMStart: 06-04-2024 End: 86-08-5814Clcsqr outpatient visit 15 minutesEmily Amina Longoria MD Work Phone: [facility] DERMComment on above:Granuloma annulare (Primary Dx)Start: 05-25-2024 End: 47-44-6013Wjagmej encounter procedureEmily Amina Longoria MD Work Phone: [facility] DERMComment on above:Rash and other nonspecific skin eruption (Primary Dx)Start: 03-18-2024 End: 43-30-8715QotmekYhfbmqwgAniyah GALLOWAY Work Phone: [facility] CardiologyComment on above:Med RefillStart: 01-17-2024 End: 48-01-4268yjhbrkppkdPUMX L MONROEProMedica Essex HospitalStart: 01-17-2024 End: 16-55-2722Kdrkqk outpatient visit 15 minutesRobsharan Rueda MD Work Phone: [facility] CardiologyComment on above: Paroxysmal atrial fibrillation ([facility]) (Primary Dx); Stage 4 chronic kidney disease ([facility]); 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 ([facility]); Other forms of angina pectoris ([facility]); Essential hypertension; Atherosclerosis of [place] coronary artery of [place] heart without angina pectoris; H/O four vessel coronary artery bypass graft; Hypertensive urgency; Shortness of breath; Localized edemaStart: 01-16-2024 End: 77-45-5981Zbgrtzpgr encounterCary Goldman [facility] CardiologyStart: 75-79-7368MimpfwLvufpmd P Kyser PA-C Work Phone: [facility] CardiologyComment on above:Med RefillStart: 11-18-2023 End: 08-37-9161dtawfbmyehZtrjo Doreen Other [employer] Other Start: 27-66-3216Vllvnz outpatient visit 15 minutes Ron QadirFPG NephrologyStart: 11-04-2023(INJECTION) INJECTIONAbdul QadirFPG NephrologyStart: 11-04-2023 End: 45-19-8737zkmwnytqpmSwqvl Doreen Other [employer] Other Start: 10-15-2023 End: 25-34-4307bimtpnzepvZwnbi Doreen Other [employer] Other Start: 73-89-9394Wqsgnq outpatient visit 15 minutes Ron QadirFPG NephrologyStart: 10-08-2023 End: 77-31-3535ikrbjyaqtqBoiu Bakjuniors Other [employer] Other Start: 45-11-0483Qjxioouss encounterMary Anne AckermanFPG NephrologyStart: 09-15-2023 End: 80-62-8021abohhulkluAwzqi Doreen Other [facility] [employer] Other Start: 50-38-5593Qlviaqunz encounterAbdul QadirFPG NephrologyStart: 09-09-2023 End: 74-27-5987wjwouhxwgjBlfxl Doreen Other [facility] [employer] Other Start: 90-40-2536Hmudfbqnl encounterAbdul QadirFPG NephrologyStart: 08-27-2023(INJECTION) INJECTIONAziz BakhousFPG NephrologyStart: 08-27-2023 End: 78-98-4909uoocecylaqNmlo Bakhous Other [place] [employer] Other Start: 08-15-2023(INJECTION) INJECTIONAbdul QadirFPG NephrologyStart: 08-15-2023 End: 02-78-9616ucjjvltmqoBllyo Doreen Other [place] [employer] Other Start: 08-13-2023(INJECTION) INJECTIONAbdul QadirFPG NephrologyStart: 08-13-2023 End: 42-33-5199ozkejivwmrEbnbu Doreen Other [facility] [employer] Other Start: 08-01-2023 End: 10-73-0979zlojqbfyzcAgmnz Doreen Other [place] [employer] Other Start: 82-67-9578Vjytbh outpatient visit 15 minutes Ron QadirFPG NephrologyStart: 06-24-2023 End: 08-34-0630dtphfxvgpyVsvox Doreen Other [place] [employer] Other Start: 05-68-7006Ufskys outpatient visit 10 minutes Ron QadirFPG NephrologyStart: 06-06-2023 End: 28-27-1658chyufyeyglSnugg Doreen Other noMippin Other Start: 03-84-6264Zykdos outpatient visit 15 minutes Ron QadirFPG Nephrology ClydeStart: 04-30-2023 End: 45-03-8570umnnbydmvoZvdzh Doreen Other [employer] Other Start: 74-89-2104Guonqh outpatient visit 15 minutes Ron QadirFPG NephrologyStart: 04-06-2023(INJECTION) INJECTIONAbdul QadirFPG NephrologyStart: 04-06-2023 End: 16-45-4253iuihcpfleeIptrh Doreen Other [employer] Other Start: 88-86-5281Ddrnyjsfx encounterAbdul QadirFPG NephrologyStart: 04-02-2023 End: 98-84-4937dbebajauuiZjsnx Doreen Other noMippin Other Start: 78-24-9906Usibxa outpatient visit 15 minutes Ron QadirFPG NephrologyStart: 57-24-5950Qwayvxdik encounterAbdul QadirFPG NephrologyStart: 03-07-2023 End: 19-15-7363wuldttefyzIoida Doreen Other [employer] Other Start: 29-11-7359Bdabyf outpatient visit 15 minutes Ron QadirFPG Nephrology ClydeStart: 01-22-2023 End: 81-22-1136sywnddpgwlTSPIV QADIRFacility:W9Octoa: 12-20-2022 End: 89-54-6537xnrqlxmwekTfcix Doreen Other noMippin Other Start: 91-62-9585Rajywz outpatient visit 15 minutes Ron QadirFPG Nephrology ClydeStart: 12-17-2022 End: 82-46-5915asiemxuutkIR DHRUV HOY .Facility:X0Ibhke: 12-10-2022 End: 80-41-9044fdjupbzusuPKWHW QADIRFacility:B1Ojdao: 11-20-2022 End: 86-29-3435zpxyidrncxCO BENI V WESTFacility:O2Yptho: 11-05-2022 End: 89-37-3586xhxwcwinhePydki Doreen Other [employer] Other Start: 64-92-1898Thavqe outpatient visit 15 minutes Ron QadirFPG NephrologyStart: 10-29-2022 End: 65-08-7579uyqeyechmuBA ESSAM ELASHIFacility:Q9Xublz: 10-24-2022 End: 76-87-0306eobasyquzkRS LILLIAN MARKER .Facility:O7Dbzeh: 10-24-2022 End: 05-16-0503qfqzvgxbofVX DHRUV HOY .Facility:I5Fozmk: 09-27-2022 End: 79-37-5218hlubilrgliVelrr Elashi Other [employer] Other Start: 82-91-3802Lgpfeh outpatient visit 15 minutes Essam ElashiFPG NephrologyStart: 09-18-2022 End: 59-82-3377ncxdxqvckiCWIJW QADIRFacility:X1Nnded: 09-11-2022 End: 63-47-5206rhskbrvcfyTO DHRUV HOY .Facility:Y7Zphpv: 08-22-2022 End: 48-67-6853gggpmyeswaPxena Doreen Other [employer] Other Start: 44-99-4721Dslnxj outpatient visit 15 minutes Ron QadirFPG NephrologyStart: 08-13-2022 End: 98-01-2136ywqyoceiqeEJRHN QADIRFacility:N6Homxz: 06-25-2022 End: 13-80-8396uajpckamicDI DHRUV HOY .Facility:S8Arroi: 06-18-2022 End: 94-42-1360nkjcgtkxihRX DHRUV HOY .Facility:K1Zhqaa: 06-01-2022 End: 27-67-9554scgowrgodwKO YANET Dominique BRADLEYFacility:V9Wqifx: 05-28-2022 End: 63-38-7322dvicybhztzItdkt Doreen Other [employer] Other Start: 55-67-3098Bjgvgonxg encounterAbdul QadirFPG NephrologyStart: 05-21-2022 End: 30-52-4724eaxqthmlxaCM DHRUV HOY .Facility:W2Pmdxx: 05-16-2022 End: 75-97-0505rexruzakorJqkoi Doreen Other [employer] Other Start: 95-02-7089Tivlfykac encounterAbdul QadirFPG NephrologyStart: 05-10-2022 End: 70-29-5316iseckieuwkRclby Doreen Other [employer] Other Start: 25-46-4896Busvmwzgu encounterAbdul QadirFPG NephrologyStart: 05-08-2022 End: 07-45-7324bzvbzofbxpMndrj Doreen Other [employer] Other Start: 84-12-1630Lhrbtl outpatient visit 25 minutes Ron QadirFPG NephrologyStart: 05-02-2022 End: 13-27-2832oyeklfuhikYBPVG QADIRFacility:B6Gjqzo: 04-24-2022 End: 66-35-6734vvvpcfzevjRouw Bakhous Other [employer] Other Start: 83-70-9045Awcllymas encounterAziz BakhousFPG NephrologyStart: 01-18-2022 End: 83-27-3758lvfhcddghzQliom Doreen Other [place] [employer] Other Start: 33-80-1624Pwddvc outpatient visit 25 minutes Ron ChuladirFPG Nephrology ClydeStart: 05-21-2017 End: 39-40-8761WjexirvvctCQUEHCX PHYSICIANFacility:[facility] Procedures DateProcedureProcedure DetailPerforming ClinicianStart: 50-46-3742Fyji bld gluc mntr dev cleared fda spec home useLorraine Pope MD Work Phone: Start: 58-66-6289Tmztb Cherry Gutierres MD Work Phone: Start: 87-26-7242Ttgov Cherry Gutierres MD Work Phone: Start: 58-60-2350TMITCZIFMCJ SKIN LESIONEmkatherin Longoria MD Work Phone: Start: 24-45-2616Gyrx bld gluc mntr dev cleared fda spec home useAhfederica Pope MD Work Phone: Start: 38-15-4273Tclx bld gluc mntr dev cleared fda spec home useLorraine Pope MD Work Phone: Start: 92-39-9704Vbhi bld gluc mntr dev cleared fda spec home useLorraine Pope MD Work Phone: Start: 65-47-9160MHKR / NAIL BIOPSYEmkatherin Longoria MD Work Phone: Start: 63-39-1264Ahw routine ecg w/least 12 lds w/i&r Thuan Delvalle MD Work Phone: Start: 51-49-3388Icfqdhi of coronary artery bypass graftingH/O four vessel coronary artery bypass graftSalfreda Quiles PA-C Work Phone: Start: 23-77-5590Vapfn depression screening assessment Luis Quiles PA-C Work Phone: History of coronary artery bypass graftingH/O four vessel coronary artery bypass graftSalfreda Quiles PA-C Work Phone: History of coronary artery bypass graftingH/O four vessel coronary artery bypass graftSarthak Rueda MD Work Phone: History of coronary artery bypass graftingH/O four vessel coronary artery bypass graftMarck Lazo NUT SHELLER-AUDIENCE COORDINATOR Work Phone: History of coronary artery bypass graftingH/O four vessel coronary artery bypass graftMiyonnyyulia DicksonJose NUT SHELLER-AUDIENCE COORDINATOR Work Phone: Plan of Treatment DateCare ActivityDetailAuthorStart: 03-23-2026 End: 20-85-5987Icatdea encounter procedureNOMS [facility] DERMStart: 09-13-2025 End: 63-66-1924Uxxrtwz encounter /08/2025 10:50 AM EST Office Visit [facility] [address] [place] [phone] Lorraine Pope MD [address] [place] [address] [facility] EndocrinologyStart: 06-14-2025 End: 89-47-7005Fufbgrq encounter procedureNOMS ENDOCRINOLOGYComment on above: Type 2 diabetes mellitus with hyperglycemia, with long-term 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 ([facility])Start: 55-38-7978Xscpfzixs vaccinationNONJ HealthcareStart: 01-20-2692Jkwwndpo identified in Urine by CultureUrine [facility] Hospitaltart: 40-78-2054Leqhd [facility] Start: 34-20-1262Swpiu [facility] Daytontart: 04-21-2025 Bacteria identified in Urine by CultureUrine [facility] Hospitaltart: 03-23-2025 End: 90-63-5109Oqoqmxu encounter zlfbdcpgu51/17/2025 2:30 PM EDT Office Visit [facility] [address] [place] [address] Greg Longoria MD [address] [place] [address] ArrivedNOMS SHAW HOSPITAL DERMComment on above:ArrivedStart: 03-16-2025 End: 46-18-6281Wvyufbk encounter /10/2025 8:35 AM EDT Office Visit [facility] [address] [place] [phone] Greg Longoria MD [address] [place] [address] [facility]MStart: 02-15-2025 End: 82-99-6473Jqkfjfu encounter procedureNOMS ENDOCRINOLOGYComment on above: Type 2 diabetes mellitus with hyperglycemia, with long-term 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 (CMS/HCC)Start: 91-59-0788Jqzbp BMI ScreeningAdult BMI Screening [facility] SystemStart: 19-71-1353Maqkiaj ScreeningTobacco Screening [facility] SystemStart: 12-31-2024 End: 05-70-5780Sdzdfbz encounter gleruedsp01/27/2025 10:15 AM EDT Procedure [facility] [address] [place] [phone] Ga Lai DPM [address] [place] [address] [facility] PODIATRYStart: 11-16-2024 End: 74-49-2446Pazfxbg encounter procedureNOMS ENDOCRINOLOGYComment on above: Type 2 diabetes mellitus with hyperglycemia, with long-term 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 (CMS/HCC)Start: 09-28-2024 End: 50-65-7446Xhjtydz encounter procedureNOMS SHAW HOSPITAL PODIATRYComment on above: ArrivedStart: 07-13-2024 End: 01-24-2791Wzsztto encounter procedureNOMS ENDOCRINOLOGYComment on above: Type 2 diabetes mellitus with hyperglycemia, with long-term 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 (CMS/HCC)Start: 06-25-2024 End: 21-93-3051Hltrhuu encounter procedureNOMS SWS PODIATRYComment on above: ArrivedStart: 28-15-4551KDPQK-19 Vaccine ( season)COVID-19 Vaccine ( season)[facility] SystemStart: 52-11-7351Ujwzrzdlh vaccination [facility] HealthcareStart: 06-04-2024 End: 82-65-7318Twbedff encounter procedureNOMS SWS DERMComment on above:Arrived Start: 22-60-5129Jsluu BMI ScreeningAdult BMI ScreeningDay[facility] System Start: 74-03-3747Vrizhld ScreeningTobacco ScreeningDayton [facility] SystemStart: 02-21-2024 End: 45-39-2907Qntytdt encounter slnxavdwu04/17/2024 2:00 PM EDT Office Visit [facility] [address] [place] [address] Thuan Delvalle MD [address] [place] [address] [facility] CardiologyStart: 01-24-2024 End: 41-07-1430Zfzei metabolic 2000 panel - Serum or PlasmaBasic Metabolic Panel Lab Routine Stage 4 chronic kidney disease ([facility]) Essential hypertension Ex pected: 01/24/2024 (Approximate), Expires: 01/16/2025[facility] Work Phone: Comment on above:Expected: 01/24/2024 (Approximate), Expires: 01/16/2025Start: 01-24-2024 End: 15-39-8807Ilferyba Tobwcxj8701/24/2024 10:30 AM EDT Clinical Support [facility] [address] [place] [address] [facility]iologyStart: 01-17-2024 End: 32-32-2823Zhsjgyh encounter zwucvhjgf84/12/2024 1:00 PM EDT Office Visit [facility] [address] [place] [phone] Sarthak Rueda MD [address] [place] [address] Thuan Delvalle MD [address] [place] [address] [facility] Start: 64-90-6495PESYX-19 Vaccine ( season)COVID-19 Vaccine ( season)[facility] SystemStart: 09-08-6406Sueyrrvvm vaccination Influenza VaccineDayton VA Medical Center SystemStart: 44-04-7172Drejgohhhp Screening Depression ScreeningProSelect Medical Specialty Hospital - Cleveland-Fairhilltart: 00-44-0211Qamj Risk Screening Fall Risk ScreeningDayton VA Medical Center SystemStart: 25-93-2636Bhrnxorqpdztgh of varicella zoster vaccineZoster (Shingles) Vaccine (1 of 2)[facility] SystemStart: 54-48-6633RLqH,Tdap and Td Vaccines (1 - Tdap)DTaP,Tdap and Td Vaccines (1 - Tdap)[facility] SystemStart: 93-68-5989Gtjdk BMI Follow Up PlanAdult BMI Follow Up PlanProSelect Medical [facility] SystemStart: 06-19-1396Mrnvztprom ScreeningDepression ScreeningProSelect Medical [facility] SystemStart: 03-10-1945Medicare Annual Wellness VisitMedicare Annual Wellness VisitLake County [facility] Dermatopathology examDermatopathology exam Pathology and Cytology Timed Rash and other nonspecific skin eruption ReleaseUpon Ordering for 1 Occurrences starting 05/25/2024NONJ Healthcare Work Phone: comment on above:Release Upon Ordering for 1 Occurrences starting 05/25/2024 End: 13-13-2840Ssfqz panelLipid panel Lab Routine Medication management 1 Occurrences starting 2024 until 12/12/2025ProM[facility] Hospitalca Work Phone: Comment on above:1 Occurrences starting 2024 until 12/12/2025 End: 86-92-5946Uzpfyfpit [Mass/volume] in Serum or PlasmaMagnesium Lab Routine Medication management 1 Occurrences starting 2024 until 12/12/2025 [facility] Work Phone: Comment on above:1 Occurrences starting 2024 until 12/12/2025Renal function 1999 panel - Serum or PlasmaFort Hamilton HospitalRenal function 1999 panel - Serum or PlasmaFlorida Medical Center Immunizations Immunization DateImmunizationNotesCare PwqcnbgyBwirckkk27-38-9682uojnzmret virus vaccine, unspecified formulationLorraine Pope MD Work Phone: [facility] CenterBwvgexehjc71-81-7058cdecyqz vaccine or immune globulinCassandra Lai DPM Work Phone: noHeartland Behavioral Health ServicesOmvqhdziot02-32-0127kormymr vaccine or immune globulinCassandra Lai DPM Work Phone: [facility] CenterBzbiykwceu18-17-1227Hazjjbxj trivalent influenza vaccine, adjuvanted, preservative freeStephen Kb PA-C Work Phone: [facility] WestRevrfr98-71-3309oqdwhjwis virus vaccine, unspecified formulationStephen Kb PA-C Work Phone: [facility] - WestSngokt29-57-8973Zzwelekm trivalent influenza vaccine, adjuvanted, preservative freeStephen Kb PA-C Work Phone: [facility] - WestGwvkyt71-56-2779ncczubexg, injectable, quadrivalent, preservative freeCassandra Lai DPM Work Phone: [facility] CenterZsusfukmce95-08-8879Wnonsgkv trivalent influenza vaccine, adjuvanted, preservative freeStephen Kb PA-C Work Phone: [facility] - WestCsrzmu42-31-1749gxqubqplpgga conjugate vaccine, 13 valentStephen Kb PA-C Work Phone: [facility] - WestXsiptk36-28-2370pfzeevrix, high dose seasonal, preservative-freeStephen Kb PA-C Work Phone: [phone] [place] [address] [place] Rskqjc81-82-5025erbyospzt, high dose seasonal, preservative-freeStephen Kb PA-C Work Phone: [phone] [place], [place] [address]10-05-2015influenza, high dose seasonal, preservative-freeStephen Kb PA-C Work Phone: [phone] [place], [place] 7413710-10-2014influenza, seasonal, injectableStephen Kb PA-C Work Phone: [phone] [place], [place] [address]10-04-2013influenza, seasonal, injectableStephen Kb PA-C Work Phone: [phone]11-02-2012influenza virus vaccine, unspecified formulationStephen Kb PA-C Work Phone: [phone] [place] [address] [place] Dnobdw09-25-6136jykpunfkilkm polysaccharide vaccine, 23 valentStephen Kb PA-C Work Phone: [phone] [place] [address] [place] Juwxet36-13-7689qgjpprxqq virus vaccine, unspecified formulationStephen Kb PA-C Work Phone: [phone] [place] Egtxxz53-95-5857gkkercqsd virus vaccine, unspecified formulationStephen Kb PA-C Work Phone: [phone] [place] [address] [place] Leapzw59-00-5117lggknzahr virus vaccine, unspecified formulationStephen Kb PA-C Work Phone: [phone] [place] Eewwvh52-64-7405fuhsdkjia virus vaccine, unspecified formulationStephen Kb PA-C Work Phone: [phone] [place] [address] [place] Rormln19-85-1509ibruzvgup virus vaccine, unspecified formulationStephen Kb PA-C Work Phone: [phone] [place], [place] 74[address]11-05-2004influenza virus vaccine, unspecified formulationStephen Kb PA-C Work Phone: [phone] [place] Dzhdkq69-82-2488jqqqmlpnu virus vaccine, unspecified formulationSyessicateetee Quiles PA-C Work Phone: [facility] [place] Voaqsj68-93-5049rlyejnpxgzlh polysaccharide vaccine, 23 valentSalfreda Quiles PA-C Work Phone: [facility] Payers DatePayer CategoryPayerPolicy [id number]-pay2022MedicaidAETNA MEDICARE ADVANTAGE [id number] 2022Medicare [id number] 2022Medicare HMOAETNA MEDICARE [id number] [id number] .[id number] .1.929671.3.579.2.593 [id number] 2.16.840.1.800967.3.57[id number] 2.16.840.1.028350.3.57[id number] 2.16.840.1.733786.3.57[id number] 2.16.840.1.961562.3.57[id number] 2.16.840.1.962690.3.57[id number] 2.16.840.1.001605.3.57[id number] 2.840.1.359898.3.57[id number] 2.16.840.1.557837.3.57[id number] 2.16.840.1.424023.3.579.[id number] 2.16.840.1.257312.3.579.[id number] 2.16840.1.654778.3.579.[id number] 2.16.840.1.063812.3.579.[id number] 2.16.840.1.723118.3.57[id number] 2.16.840.1.337799.3.57[id number] 2.16.840.1.463198.3.579.2.06[id number] 2.16.840.1.353053.3.579.[id number] 2.16.840.1.420344.3.57[id number] 2.16.840.1.220454.3.579.[id number] 2.16.840.1.124277.3.579.[id number] 2.16.840.1.802777.3.579.2.[id number] 2.16.840.1.336570.3.57[id number] 2.840.1.849764.3.57[id number] 2.16.840.1.753202.3.57[id number] oh6fw5xp-mkl2-034d-hnm1-k1a6lbt5w702HycaaqwEyywzbtVfngcf of [id number] 974d5y97-sj04-87n6-95u1-[id number] 2.840.1.3[id number] 2.840.1.844705.3.579.2.531 Social History DateTypeDetailFacilityUnknown if ever smokedMippin Other Start: 06-25-2024 End: 07-85-7123Eaw Assigned At [facility] HospitalMippin Other Start: 03-14-2023 End: 20-97-1882Mxgreeh smoking status NHISEx-smokerMiss[facility] Rehabilitation Center End: 05-77-9424Kqvfqmq of tobacco useCurrent smokerLake County Memorial Hospital - West End: 59-38-1291Osvnrne of tobacco useCigarette SmokerLake County Memorial Hospital - West Start: 03-14-2023 End: 81-69-4687Xggwvjb use and exposureSmokeless tobacco non-userGood Hope Hospitaltart: 06-25-2024 End: 93-14-2987Ieufpxhib beverage intakeNot AskedMissouri Rehabilitation CenterStart: 06-25-2024 End: 52-50-1034Ltsgqhc of Social functionGood Hope Hospitaltart: 10-64-1963Wdutuqe Commentcaffeine intake: 1-2 cups per dayMissouri Rehabilitation CenterStart: 06-28-9989Apo assigned at birthNot on fileGood Hope Hospitaltart: 03-19-2023 End: 74-48-4558Imqqgzoaq beverage intakeEx-drinker (finding)[facility] WestDo you belong to any clubs or organizations such as methodist groups, unions, fraternal or athletic groups, or school groups?NoPRegency Hospital ToledoAre you now , , , , never or living with a partner?MarriedLake County Memorial Hospital - WestHow hard is it for you to pay for the very basics like food, housing, medical care, and heatingNot hard at allLake County Memorial Hospital - WestDo you feel stress - tense, restless, nervous, or anxious, or unable to sleep at night because yourmind is troubled all the time - these days [OSQ]Not at allGood Hope Hospitaltart: 05-21-2017 End: 11-19-2073JknWqczjf (finding)[facility] Hope Hospitaltart: 44-19-3840Pjq Assigned At BirthF[facility] Goals DatePatient GoalDesired Activity/StatePersonal health goalComment on above: Evaluation of progress towards goal: return home with homecare and support from [facility], children and grandchildren Clinical Notes 01-18-2022 to 06-14-2025 Note Date & UkkmLofjYypvbwat17-13-9657 History of Present illness Narrative* Lorraine Pope MD - 06/14/2025 10:10 AM EDT Kylah Berger is a 79 y.o. female No ref. [...] 10-12-15 units tid plus ISS#2, meter 0-17-83%, [id number]. 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 Interim History: 03/2023 Follow-up visit on 03/12/2023 [...] the office 7.1, blood sugar 376. Meter posnes219, highest 233, average 1.1, average 169. She [...] in the office 7.5. Meter lowest 100, sqwegij783 while she is on prednisone, average 1.2 [...] she states GFR is 30, per her explosives worker. Interim History: 08/24 Followup visit on 08/25/18 [...] reading of her . Lab done in [facility] BUN 28/creatinine 1.43, GFR 36, total [...] MG capsule 1 capsule, Every 12 hours xgnzgscqigbp-qsky-qtvqtsdc-folic acid (Centrum) chewable tablet 1 tablet, Daily [...] disease) Chronic kidney disease, stage III (moderate) ([facility]) Current use of insulin (HCC) Diabetes (HCC) [...] hyperglycemia, with long-term 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 ([facility]) - POCT glucose manually resulted - POCT glycosylated hemoglobin (Hb A1C) docked device Tresiba 30 units twice a day, Humalog 09/21/2022 according to meal size, we will add sliding scale 2. , instruction given. Vitamin D deficiency Microalbuminuria Hyperlipemia, mixed Insulin long-term use ([facility]) Primary hypertension Pema's disease Encounter for dietary consultation Chronic renal disease, stage IV ([facility]) Follow up in about 3 months (around 09/13/2025). documented in this encounterMissouri Rehabilitation CenterFdszcdvntm21-02-3206 History of Present illness Narrative* Greg Longoria MD - 03/23/2025 2:30 PM EDT Skin Check Location: Patient requests a skin examination of the face and arms Dermatologic history: history of Actinic Keratosis, history of Basal Cell Carcinoma, history of Squamous Cell Carcinoma Last visit: 1 year ago Established patient Lesions: Location: Left confucianist Duration: 1 year Quality: denies pain, denies [...] benign pigmented lesions that occur on sun-exposed andsun-damaged skin. No treatment is necessary. Recommended regular use of broad spectrum sunscreen SPF 30 or higher 2. SEBORRHEIC KERATOSIS, INFLAMED Left Jew Fincastle and brown stuck on verrucous scaly papule [...] office if abnormal redness or tenderness develops atthe treatment site. Cryotherapy today, see procedure note. Diagnosis: Inflamed seborrheic keratosis Indication: Inflamed Consent: Verbal consent was obtained and risks were discussed, including, but not limited to risks of scarring, darker or public health sanitarian technician pigmentary changes, recurrence, incomplete removal and infection. [...] or tenderness Cryotherapy, skin lesion - Left Jew 3. SOLAR PURPURA (2) Left Forearm - [...] Next Visit: 1 year documented in this [facility] Chief Complaint: Patient here for 3 month follow up. Patient states she is not feeling too bad. Patient states she is having a lot of congestion, coughing, SOB, dyspnea with exertion, leg swelling, fatigue and abdominal swelling. Dr. Gutierres increased Lasix to 50mg x 1 month ago. HPI: Kylah Berger is a 79 y.o. female Doing okay; [...] or gallops. RESPIRATORY: CTAB, (more content not included)...[facility]05-12-2025 History of Present illness Narrative* Lorraine Pope MD - 02/15/2025 9:40 AM EDT Kylah Berger is a 79 y.o. female No ref. [...] 10-12-15 units tid plus ISS#2, meter 0-17-83%, [id number]. 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 Interim History: 03/2023 Follow-up visit on 03/12/2023 [...] the office 7.1, blood sugar 376. Meter lmuhew822, highest 233, average 1.1, average 169. She [...] in the office 7.5. Meter lowest 100, otoahsp996 while she is on prednisone, average 1.2 [...] she states GFR is 30, per her explosives worker. Interim History: 08/24 Followup visit on 08/25/18 [...] reading of her . Lab done in [facility] BUN 28/creatinine 1.43, GFR 36, total [...] MG capsule 1 capsule, Every 12 hours zlbvymmymzat-acvu-agbjqovt-folic acid (Centrum) chewable tablet 1 tablet, Daily [...] cell carcinoma CAD (coronary artery disease) ([facility]/HCC) Chronic kidney disease, stage III (moderate) (HCC) ([facility]) Current use of insulin ([facility]/HCC) Diabetes ([facility]/HCC) Frozen shoulder GERD (gastroesophageal reflux disease) Gout 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[facility]/HCC) HLD (hyperlipidemia) ([facility]/HCC) HTN (hypertension) ([facility]/HCC) Hypoglycemia Hypothyroidism ([facility]/HCC) Obesity with body mass index (BMI) of 30.0 to 39.9 Squamous cell skin cancer Thyroid disease ([facility]/HCC) Type 2 diabetes mellitus with other diabetic kidney complication ([facility]/HCC) Vitamin D deficiency Past Surgical History: Procedure [...] with long-term 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 ([facility]) - POCT glucose manually resulted - POCT glycosylated hemoglobin (Hb A1C) docked device Vitamin D deficiency Microalbuminuria Hyperlipemia, mixed ([facility]) Primary hypertension ([facility]) Insulin long-term use ([facility]) 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[facility]) Encounter for dietary consultation Chronic renal disease, stage IV ([facility]) Said her last GFR 27 Assessment & [...] continuous glucose monitor (CGM) but found it ineffect janet as she could not keep it on. She is advised to continue her current insulin regimen. If she needs any prescriptions, she should inform the office. Follow up in about 4 months (around 06/18/2025). documented in this [facility]03-17-2025 Miscellaneous Notes* Telephone Encounter - Cary Goldman CMA - 12/21/2024 10:16 AM EDT Phoned pt and lm on to call office for any further refills. Letter mailed to pt. documented in this [facility]03-17-2025 Telephone encounter Note* Telephone Encounter - Cary Goldman CMA - 12/21/2024 10:16 AM EDT Phoned pt and lm on to call office for any further refills. Letter mailed to pt. [facility]03-08-2025 Miscellaneous Notes* Telephone Encounter - Philomena Pantoja RN - 12/12/2024 1:38 PM EST Last OV 01/17/24 Mg 01/01/24 Mg pended; refill letter mailed documented in this [facility]03-08-2025 Miscellaneous Notes* Telephone Encounter - Philomena Pantoja RN - 12/12/2024 1:38 PM EST Last OV 01/17/24 Lipid profile 07/08/23 Lipid panel pended; refill letter mailed documented [facility] Telephone encounter Note* Telephone Encounter - Philomena Pantoja RN - 12/12/2024 1:38 PM EST Last OV 01/17/24 Mg 01/01/24 Mg pended; refill letter mailed [facility]03-08-2025 Telephone encounter Note* Telephone Encounter - Philomena Pantoja RN - 12/12/2024 1:38 PM EST Last OV 01/17/24 Lipid profile 07/08/23 Lipid panel pended; refill letter mailed [facility]02-21-2025 NotePatient here for 6 mo follow up CAD, hypertension, MR, and diastolic dysfunction. Had echo in Jun 2024. She presented to [facility] ED last week with concerns of elevated BP. She takes clonidine PRN for elevated SBP > 200. Denies chest pain and SOB. Does feel palpitations. She wonders if the clonidine patches would help her. Review of Systems Cardiovascular: Positive for irregular heartbeat and palpitations. Musculoskeletal: Positive for myalgias. All other systems reviewed and are negative.[facility] 11-27-2024 NoteSUBJECTIVE Reason for Visit: Kylah Berger is a 78 y.o. year old female patient being seen for 6-month follow-up visit. HPI: Kylah Berger is a 78 yo female with PMH [...] for a follow-up after being discharged from [facility] in February 2024. She was admitted [...] Diagnosis Acquired hypothyroidism Anemia Arthritis Atherosclerosis of [place] coronary artery of [place] heart without angina pectoris Combined forms of [...] (CATAPRES) 0.1 mg, o (more content not included)...[facility]02-10-2025 History of Present illness Narrative* Lorraine Pope MD - 11/16/2024 9:50 AM EST Kylah Berger is a 78 y.o. female No ref. [...] 10-12-15 units tid plus ISS#2, meter 0-17-83%, [email or web address]. 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 Interim History: 03/2023 Follow-up visit on 03/12/2023 [...] the office 7.1, blood sugar 376. Meter [id number], highest 233, average 1.1, average 169. She [...] in the office 7.5. Meter lowest 100, [id number] while she is on prednisone, average 1.2 [...] she states GFR is 30, per her explosives worker. Interim History: 08/24 Followup visit on 08/25/18 [...] reading of her . Lab done in [facility] BUN 28/creatinine 1.43, GFR 36, total [...] suppository by rectal route 2 times every dayfor 2 weeks Rectal labetalol (Normodyne) 200 MG tablet 2 tablets, 2 times daily levothyroxine (Synthroid, Levoxyl) 150 MCG tablet 2 tablets, Daily before breakfast liothyronine (Cytomel) 5 MCG tablet 1 tablet, Daily lisinopril 40 MG tablet take 1 tablet by oral route every day Oral MAGNESIUM PO Magnesium minocycline 100 MG capsule 1 capsule, Every 12 hours kcmntofjzjsz-dyuc-qxniojqm-folic acid (Centrum) chewable tablet 1 tablet, Daily [...] (moderate) (HCC) (CMS/HCC) Current use of insulin ([facility]) Diabetes ([facility]) Frozen shoulder GERD (gastroesophageal reflux disease) Gout 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[facility]) HLD (hyperlipidemia) ([facility]) HTN (hypertension) ([facility]) Hypoglycemia Hypothyroidism ([facility]) Obesity with body mass index (BMI) of 30.0 to 39.9 Squamous cell skin cancer Thyroid disease ([facility]) Type 2 diabetes mellitus with other diabetic kidney complication ([facility]) Vitamin D deficiency Past Surgical [...] 4 months (around 03/16/2025). documented in this encounterMissouri Rehabilitation [id number] History of Present illness Narrative* Ga Lai DPM - 09/28/2024 11:30 AM EST Images from the original note were not included. HPI: Patient presents in office today for diabetic nailcare. Last PCP visit with Dr. Gutierres was 09/2024. Ptsees Dr. Pope for DM. Recent BS 132. No other [...] of erythema to the plantar foot bilateral andmedial 1st MPJ left Neurologic: NEUROLOGIC: light touch [...] needed if problems arise. documented in this encounterMissouri Rehabilitation [id number] Miscellaneous Notes* Telephone Encounter - Bridgett Hoffman LPN - 09/05/2024 8:00 AM EST [facility] 01/17/24 [facility] 01/01/24 documented in this encounterL[facility] Telephone encounter Note* Telephone Encounter - Bridgett Hoffman LPN - 09/05/2024 8:00 AM EST [facility] 01/17/24 [facility] 01/01/24 [facility]10-07-2024 History of Present illness Narrative* Lorraine Pope MD - 07/13/2024 9:20 AM EDT Kylah Berger is a 78 y.o. female Lorraine Pope MD presents with chief complaint of Diabetes [...] 10-12-15 units tid plus ISS#2, meter 0-17-83%, [email or web address]. 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 Interim History: 03/2023 Follow-up visit on 03/12/2023 [...] the office 7.1, blood sugar 376. Meter , highest 233, average 1.1, average 169. She [...] in the office 7.5. Meter lowest 100, [id number] while she is on prednisone, average 1.2 [...] she states GFR is 30, per her explosives worker. Interim History: 08/24 Followup visit on 08/25/18 [...] reading of her . Lab done in [facility] BUN 28/creatinine 1.43, GFR 36, total [...] suppository by rectal route 2 times every dayfor 2 weeks Rectal labetalol (Normodyne) 200 MG tablet 2 tablets, Oral, 2 times daily levothyroxine (Synthroid, Levoxyl) 150 MCG tablet 2 tablets, Oral, Daily before breakfast liothyronine (Cytomel) 5 MCG tablet 1 tablet, Oral, Daily lisinopril 40 MG tablet take 1 tablet by oral route every day Oral MAGNESIUM PO Magnesium minocycline 100 MG capsule 1 capsule, Every 12 hours hkpdcrbztnex-enar-mgizxneo-folic acid (Centrum) chewable tablet 1 tablet, Oral, [...] cell carcinoma CAD (coronary artery disease) ([facility]) Chronic kidney disease, stage III (moderate) (HCC) ([facility]) Current use of insulin ([facility]) Diabetes ([facility]) Frozen shoulder GERD (gastroesophageal reflux disease) Gout 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[facility]) HLD (hyperlipidemia) ([facility]) HTN (hypertension) ([facility]) Hypoglycemia Hypothyroidism ([facility]) Obesity with body mass index (BMI) of 30.0 to 39.9 Squamous cell skin cancer Thyroid disease ([facility]) Type 2 diabetes mellitus with other diabetic kidney complication ([facility]) Vitamin D deficiency Past Surgical [...] 4 months (around 11/13/2024). documented in this encounterMissouri Rehabilitation [id number] History of Present illness Narrative* Ga Lai DPM - 06/25/2024 9:15 AM EDT Images from the original note were not included. HPI: Patient presents in office today for diabetic nailcare. Last PCP visit with Dr. Gutierres was 04/15/24. Ptsees Dr. Pope for DM. No other complaints. Exam: General [...] of erythema to the plantar foot bilateral andmedial 1st MPJ left Neurologic: NEUROLOGIC: light touch [...] or Silipos padding/toe spacers to prevent rubbing andcontinued development of the hyperkeratosis. 3. Also discussed use of moisturizing creams for overall increased hydration to the skin. 4. Discussed continued use of proper foot gear to avoid excess pressure over the callous site. documented in this encounterMissouri Rehabilitation [id number] History of Present illness Narrative* Greg Longoria MD - 06/04/2024 1:35 PM EDT Follow up Diagnosis: Rash unspecified Location: hands Procedure performed: Punch biopsy Status: not as painful Date of procedure: 05/25/2024 Current treatment: Betamethasone Dipro 0.05% cream, here for biopsy results Suture Removal Patient here for suture removal: No complaints of redness, drainage or swelling at site, compliant with wound care. Location: Right Hypothenar Newton Procedure Performed: Punch biopsy Date of Procedure: 05/25/2024 Medications: Betamethasone All pertinent medical history, medications, and allergies were reviewed. General Exam: alert , oriented to person, place, and time , normal affect, well appearing Unaccompanied A focused exam completed based on patient reported problems, see below: 1. Granuloma annulare Left Hand - Anterior, Right Hand - Anterior [place] indurated annular plaques. Flaring today, but improved since last visit. Discussed that GA is a benign condition that often self-resolves in 1-2 years but in some patients can become a more chronic issue. Discussed the cause of this condition is unknown and treatment can be difficult. Discussed treatment options including topical steroids and ILK. Continue betamethasonecream 0.05% Apply to affected areas, up to twice a day when flared, do not use one the face, groin,or underarms. Notify office if flaring despite treatment. Related Medications betamethasone dipropionate 0.05 % cream Apply to affected areas, up to twice a day when flared, do not use one the face, groin, or underarms, 30 day supply Next Visit: prn for any new/changing lesions documented in this encounterMissouri Rehabilitation [id number] History of Present illness Narrative* Greg Longoria MD - 05/25/2024 2:50 PM EDT Images from the original note were not included. Lesions: Location: Hands Duration: Couple weeks ago Quality: painful, itchy, denies bleeding Associated symptoms: non-healing, red, blisters, itchy Treatments: TAC- from Dr. Gutierres 05/12/2024, which didn't help Established patient All pertinent medical history, medications, and allergies were reviewed. General Exam: alert , oriented to person, place, and time , normal affect, well appearing Accompanied by spouse A focused exam completed based on patient reported problems, see below: 1. Rash and other nonspecific skin eruption Right Hypothenar [place] plaques Biopsy today, see procedure note. Start Betamethasone cream bid when flared, hold when clear. Lesion biopsy - Right Hypothenar [place] Type of biopsy: punch Informed consent: discussed and consent obtained Informed consent comment: The risks and benefits were discussed. Risks include, but are not limitedto, bleeding, infection, scarring, pain, & nerve damage. [...] Visit: pending biopsy results documented in this encounterMissouri Rehabilitation [id number] Miscellaneous Notes* Telephone Encounter - Inocente Hoffman LPN - 03/18/2024 12:01 PM EDT [facility] 01/17/24 Mg 07/08/23 -per 07/09/23 refill encounter Pt needs mg, orders in place. documented in this encounterL[facility]06-12-2024 Telephone encounter Note* Telephone Encounter - Inocente Hoffman LPN - 03/18/2024 12:01 PM EDT [facility] 01/17/24 Mg 07/08/23 -per 07/09/23 refill encounter Pt needs mg, orders in place. Koko [id number] History of Present illness Narrative* Thuan Delvalle MD - 01/17/2024 1:00 PM EDT Kylah Berger Date of visit: 01/17/2024 Date of : 1945 Age: 78 y.o. Patient Active Problem List Diagnosis Diabetes mellitus ([facility]) Hypertensive urgency Arthritis Dyspnea Other forms of angina pectoris ([facility]) Unstable angina ([facility]) Obesity (BMI 30-39.9) H/O four vessel coronary artery bypass graft Paroxysmal atrial fibrillation ([facility]) Atherosclerosis of [place] coronary artery of [place] heart without angina pectoris Obesity (BMI 30-39.9) Essential hypertension Other hyperlipidemia Class 1 obesity in adult Stage 4 chronic kidney disease ([facility]) 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 She was recently hospitalized at [facility] for poorly controlled bloodpressure. Her blood pressure medications were adjusted and [...] has not felt presyncopal or syncopal. She hasnot had any significant lower extremity edema. Past Medical History: Diagnosis Date Allergic rhinitis Anemia Arthritis CAD (coronary artery disease) Cataract Chest pain Chronic kidney disease COVID-19 Diabetes mellitus ([facility]) Dyspnea Edema GERD (gastroesophageal reflux disease) Gout Hyperlipidemia Hypertensive urgency Hypothyroidism Lower back pain Mitral regurgitation Osteopenia Ventricular hypertrophy No data recorded No data recorded No data recorded Past Surgical History: Procedure Laterality Date CARDIAC CATHETERIZATION CATARACT EXTRACTION, BILATERAL CHOLECYSTECTOMY COLONOSCOPY Coronary angiogram and left ventricular gram/pressure N/A 12/28/2020 Performed by Kassie Nicole MD at [facility] CARDIAC CATH LABS CORONARY ARTERY BYPASS GRAFT X 4 with OCASIO and SVG x3 / EVH LEFT upper and lower AND RIGHT upper LEG / LUCAS N/A 12/29/2020 Performed by Herrera De Paz MD at [facility] FIRST TRIMESTER / TX INCOMPLETE [...] min Stress: No Stress Concern Present (12/28/2020) [employer] [place] [employer] - Occupational Stress Questionnaire Feeling of Stress : Not at all Social Connections: Moderately Integrated (12/28/2020) Social Connection and Isolation Panel [NHANES] Frequency of Communication with Friends and Family: More than three times a week Frequency of Social Gatherings with Friends and Family: More than three times a week Attends [employer] Services: More than 4 times per year [...] 2. Stage 4 chronic kidney disease ([facility]) - Basic Metabolic Panel; Future 3. 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) 4. Other forms of angina pectoris ([facility]) 5. Essential hypertension - Basic Metabolic Panel; Future 6. Atherosclerosis of [place] coronary artery of [place] heart without angina pectoris 7. H/O four [...] BNP. 2. Atherosclerosis of coronary arteries of [place] heart without angina pectoris. Patient has had [...] about 6 weeks (around 02/28/2024). PCP: DHRUV GUTIERRES MD Referring Physician: Dhruv Gutierres MD [facility] [place] [address] documented in this encounterLake County [facility]04-11-2024 Miscellaneous Notes* Telephone Encounter - Cary Goldman CMA - 01/16/2024 3:49 PM EDT Called patient to remind them to bring their most current copy of their medication list with them to their appt. Patient verbalizes understanding. documented in this encounterLake County [facility]04-11-2024 Telephone encounter Note* Telephone Encounter - Cary Goldman CMA - 01/16/2024 3:49 PM EDT Called patient to remind them to bring their most current copy of their medication list with them to their appt. Patient verbalizes understanding. [facility]02-12-2024 Evaluation note* Encounter Date Diagnosis Assessment Notes Treatment Notes Treatment Clinical Notes Nov, Anemia of renal disease (ICD-10 - D63.1) Hb is below the target goal and has adequate Iron stores. Continue oral Iron. Continue Retacrit every 3 weeks. Nov,KD (chronic kidney disease) stage 4, GFR 15-29 ml/min (ICD-10 - N18.4)She has CKD IV due to longstanding HTN [...] of kidney mass hydronephrosis or kidney stones. Nov,Hypertensive chronic kidney disease with stage 1 through [...] continues to run high in the office. Nov,Idiopathic chronic gout without tophus, unspecified site (ICD-10 - M1A.00X0)She has gout and takes Allopurinol for prophylaxis. Monitor uric acid every 4 to 6 months. Nov,Type 2 diabetes mellitus with diabetic chronic kidney disease (ICD- 10 - E11.22)Her Blood sugars are within the acceptable range. I have advised her to continue to work with Dr. Pope for DM management. She he has a subnephrotic range proteinuria. Continue lisinopril 10 mg daily. Due to her advanced CKD she is not a suitable candidate for Farxiga, Jardiance or finerenone. Nov,Secondary hyperparathyroidism (ICD-10 - N25.81)MBD parameters including PTH, calcium, Vit D and phosphorus are within the goal. Continue Vit D 5000 units daily Nov,Hyperkalemia (ICD-10 - E87.5)She has hyperkalemia likely due to the CKD and lisinopril. Her potassium improved with dietary restriction and Lasix. [employer] Other 01-29-2024 Evaluation note* Encounter Date Diagnosis Assessment Notes Treatment Notes Treatment Clinical Notes Oct, Anemia of renal disease (ICD-10 - D63.1) Oct,KD (chronic kidney disease) stage 4, GFR 15-29 ml/min (ICD-10 - N18.4) [employer] Other 01-09-2024 Evaluation note* Encounter Date Diagnosis Assessment Notes Treatment Notes Treatment Clinical Notes Oct, Anemia of renal disease (ICD-10 - D63.1) Hb is below the target goal and has adequate Iron stores. Continue oral Iron. Change Retacrit every3 weeks. Oct,KD (chronic kidney disease) stage 4, GFR 15-29 ml/min (ICD-10 - N18.4)She has CKD IV due to longstanding HTN with DM. Her serum Creatinine is 2.5 mg/dl above her baseline1.7-2 mg d/l. Abdomen function has declined either due to the progression of CKD or hemodynamic changes in setting of better blood pressure control. I discussed with her the importance of good DM andHTN control to slow down the progression of CKD. She had renal ultrasound in 2016 which showed a small right renal cyst no evidence of kidney mass hydronephrosis or kidney stones. Oct,Hypertensive chronic kidney disease with stage 1 through [...] continues to run high in the office. Oct,Idiopathic chronic gout without tophus, unspecified site (ICD-10 - M1A.00X0)She has gout and takes Allopurinol for prophylaxis. Monitor uric acid every 4 to 6 months. 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 I have advised her to continue to work with Dr. Pope for DM management. She he has a subnephrotic range proteinuria. Continue lisinopril 10 mg daily. Due to her advanced CKD she is not a suitable candidate for Farxiga, Jardiance or finerenone. Oct,Secondary hyperparathyroidism (ICD-10 - N25.81)MBD parameters including PTH, calcium, Vit D and phosphorus are within the goal. Continue Vit D 5000 units daily Oct,Hyperkalemia (ICD-10 - E87.5)She has hyperkalemia likely due to the CKD and lisinopril. Her potassium improved with dietary restriction and Lasix. [employer] 12-04-2023 Evaluation note* Encounter Date Diagnosis Assessment Notes Treatment Notes Treatment Clinical Notes Sep, Anemia of renal disease (ICD-10 - D63.1) Sep,Hypertensive chronic kidney disease with stage 1 through stage 4 chronic kidney disease, or unspecified chronic kidney disease (ICD-10 - I12.9) Sep,Type 2 diabetes mellitus with diabetic chronic kidney disease (ICD- 10 - E11.22) Sep,KD (chronic kidney disease) stage 4, GFR 15-29 ml/min (ICD-10 - N18.4) [employer] Other 11-21-2023 Evaluation note* Encounter Date Diagnosis Assessment Notes Treatment Notes Treatment Clinical Notes Aug, Anemia of renal disease (ICD-10 - D63.1) Aug,KD (chronic kidney disease) stage 4, GFR 15-29 ml/min (ICD-10 - N18.4) [employer] Other 11-09-2023 Evaluation note* Encounter Date Diagnosis Assessment Notes Treatment Notes Treatment Clinical Notes Aug, Anemia of renal disease (ICD-10 - D63.1) Hb is below the target goal and has adequate Iron stores. Continue oral Iron. Continue Retacrit every 2 weeks. Aug,KD (chronic kidney disease) stage 4, GFR 15-29 ml/min (ICD-10 - N18.4)She has CKD IV due to longstanding HTN with DM. Her serum Creatinine is 1.7-2 mg d/l. She has normal potassium. I discussed with her the importance of good DM and HTN control to slow down the progression of CKD. She had renal ultrasound in 2016 which showed a small right renal cyst no evidence of kidney mass hydronephrosis or kidney stones. [employer] Other 10-26-2023 Evaluation note* Encounter Date Diagnosis Assessment Notes Treatment Notes Treatment Clinical Notes Jul, Anemia of renal disease (ICD-10 - D63.1) Hb is below the target goal and has adequate Iron stores. Continue oral Iron. Continue Retacrit every 2 weeks. Jul,Hypertensive chronic kidney disease with stage 1 through [...] continues to run high in the office. Jul,KD (chronic kidney disease) stage 4, GFR 15-29 ml/min (ICD-10 - N18.4)She has CKD IV due to longstanding HTN with DM. Her serum Creatinine is 1.7-2 mg d/l. She has normal potassium. I discussed with her the importance of good DM and HTN control to slow down the progression of CKD. She had renal ultrasound in 2017 which showed a small right renal cyst no evidence of kidney mass hydronephrosis or kidney stones. Jul,Idiopathic chronic gout without tophus, unspecified site (ICD-10 - M1A.00X0)She has gout and takes Allopurinol for prophylaxis. Monitor uric acid every 4 to 6 months. 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 I have advised her to continue to work with Dr. Pope for DM management. She he has a subnephrotic range proteinuria. Continue lisinopril 10 mg daily. Due to her advanced CKD she is not a suitable candidate for Farxiga, Jardiance or finerenone. Jul,Secondary hyperparathyroidism (ICD-10 - N25.81)MBD parameters including PTH, calcium, Vit D and phosphorus are within the goal. Continue Vit D 5000 units daily Jul,Hyperkalemia (ICD-10 - E87.5)She had hyperkalemia likely due to the CKD and lisinopril. Her potassium improved with dietary restriction and Lasix. [employer] Other 09-18-2023 Evaluation note* Encounter Date Diagnosis Assessment Notes Treatment Notes Treatment Clinical Notes Jun, Anemia of renal disease (ICD-10 - D63.1) Hb is below the target goal and has adequate Iron stores. Continue oral Iron. Continue Retacrit every 2 weeks. Jun,Hypertensive chronic kidney disease with stage 1 through [...] continues to run high in the office. Jun,KD (chronic kidney disease) stage 4, GFR 15-29 ml/min (ICD-10 - N18.4)She has CKD IV due to longstanding HTN with DM. Her serum Creatinine is 1.7-2 mg d/l. She has normal potassium. I discussed with her the importance of good DM and HTN control to slow down the progression of CKD. She had renal ultrasound in 2017 which showed a small right renal cyst no evidence of kidney mass hydronephrosis or kidney stones. Jun,Idiopathic chronic gout without tophus, unspecified site (ICD-10 - M1A.00X0)She has gout and takes Allopurinol for prophylaxis. Monitor uric acid every 4 to 6 months. 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 I have advised her to continue to work with Dr. Pope for DM management. She he has a subnephrotic range proteinuria. Continue lisinopril 10 mg daily. Due to her advanced CKD she is not a suitable candidate for Farxiga, Jardiance or finerenone. Jun,Secondary hyperparathyroidism (ICD-10 - N25.81)MBD parameters including PTH, calcium, Vit D and phosphorus are within the goal. Continue Vit D 5000 units daily Jun,Hyperkalemia (ICD-10 - E87.5)She had hyperkalemia likely due to the CKD and lisinopril. Her potassium improved with dietary restriction and Lasix. [employer] Other 08-31-2023 Evaluation note* Encounter Date Diagnosis Assessment Notes Treatment Notes Treatment Clinical Notes May, Anemia of renal disease (ICD-10 - D63.1) Hb is below the target goal and has adequate Iron stores. Continue oral Iron. Change Retacrit every2 weeks. May,Hypertensive chronic kidney disease with stage 1 through [...] continues to run high in the office. May,KD (chronic kidney disease) stage 4, GFR 15-29 ml/min (ICD-10 - N18.4)She has CKD IV due to longstanding HTN with DM. Her serum Creatinine is 1.7-2 mg d/l. She has normal potassium. I discussed with her the importance of good DM and HTN control to slow down the progression of CKD. She had renal ultrasound in 2016 which showed a small right renal cyst no evidence of kidney mass hydronephrosis or kidney stones. May,Idiopathic chronic gout without tophus, unspecified site (ICD-10 - M1A.00X0)She has gout and takes Allopurinol for prophylaxis. Monitor uric acid every 4 to 6 months. 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 I have advised her to continue to work with Dr. Pope for DM management. She he has a subnephrotic range proteinuria. Continue lisinopril 10 mg daily. Due to her advanced CKD she is not a suitable candidate for Farxiga, Jardiance or finerenone. May,Secondary hyperparathyroidism (ICD-10 - N25.81)MBD parameters including PTH, calcium are phosphorus are within the goal but Vit D is low. I have advised her to Continue Vit D 5000 units daily May,Hyperkalemia (ICD-10 - E87.5)She had hyperkalemia likely due to the CKD and lisinopril. Her potassium improved with dietary restriction and Lasix. [employer] Other 07-25-2023 Evaluation note* Encounter Date Diagnosis [...] of kidney mass hydronephrosis or kidney stones. Apr,nemia of renal disease (ICD-10 - D63.1)Hb is below the target goal and has adequate Iron stores. Continue oral Iron. Continue Retacrit every 6 weeks. Apr,Hypertensive chronic kidney disease with stage 1 through stage 4 chronic kidney disease, or unspecified chronic kidney disease (ICD-10 - I12.9) Her Bp is controlled at home but sometimes runs high in the office. She appears to be euvolemic. Continue current dose of carvedilol, Lasix and Lisinopril. She was advised to check home blood pressure and keep records. Apr,Idiopathic chronic gout without tophus, unspecified site (ICD-10 - M1A.00X0)She has gout and takes Allopurinol for prophylaxis. Monitor uric acid every 4 to 6 months. 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 I have advised her to continue to work with Dr. Pope for DM management. She he has a subnephrotic range proteinuria. Continue lisinopril 10 mg daily. Due to her advanced CKD she is not a suitable candidate for Farxiga, Jardiance or finerenone. Apr,Secondary hyperparathyroidism (ICD-10 - N25.81)MBD parameters including PTH, calcium are phosphorus are within the goal but Vit D is low. I have advised her to Continue Vit D 5000 units daily Apr,Hyperkalemia (ICD-10 - E87.5)She had hyperkalemia likely due to the CKD and lisinopril. Her potassium is back to normal with dietary restriction and Lasix. [employer] Other 07-01-2023 Evaluation note* Encounter Date Diagnosis Assessment Notes Treatment Notes Treatment Clinical Notes Apr, CKD (chronic kidney disease) stage 4, GFR 15-29 ml/min (ICD-10 - N18.4) Apr,nemia of renal disease (ICD-10 - D63.1) [employer] Other 06-27-2023 Evaluation note* Encounter Date Diagnosis [...] of kidney mass hydronephrosis or kidney stones. Mar,nemia of renal disease (ICD-10 - D63.1)Hb is below the target goal and has adequate Iron stores. Continue oral Iron. Continue Retacrit every 6 weeks. She was not given Retacrit injection today due to the high blood pressure. She was advised to have a follow-up in 3 days for nurse visit to have a Retacrit injection. Mar,Hypertensive chronic kidney disease with stage 1 through stage 4 chronic kidney disease, or unspecified chronic kidney disease (ICD-10 - I12.9) Her Bp is controlled at home but sometimes runs high in the office. She appears to be euvolemic. Continue current dose of carvedilol, Lasix and Lisinopril. She was advised to check home blood pressure and keep records. Mar,Idiopathic chronic gout without tophus, unspecified site (ICD-10 - M1A.00X0)She has gout and takes Allopurinol for prophylaxis. Monitor uric acid every 4 to 6 months. 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 I have advised her to continue to work with Dr. Pope for DM management. She he has a subnephrotic range proteinuria UPCR 1.2 g/g creatinine. Continue lisinopril 10 mg daily. Due to her advanced CKD she is not a suitable candidate for Farxiga, Jardiance or finerenone. Mar,Secondary hyperparathyroidism (ICD-10 - N25.81)MBD parameters including PTH, calcium are phosphorus are within the goal but Vit D is low. I have advised her to Continue Vit D 5000 units daily Mar,Hyperkalemia (ICD-10 - E87.5)She had hyperkalemia likely due to the CKD and lisinopril. Her potassium is back to normal with dietary restriction and Lasix. [employer] Other 06-01-2023 Evaluation note* Encounter Date Diagnosis [...] of kidney mass hydronephrosis or kidney stones. Mar,nemia of renal disease (ICD-10 - D63.1)Hb is below the target goal and has adequate Iron stores. Continue oral Iron. Continue Retacrit every 6 weeks Mar,Hypertensive chronic kidney disease with stage 1 through [...] need diuretics for better blood pressure control. Mar,Idiopathic chronic gout without tophus, unspecified site (ICD-10 - M1A.00X0)She has gout and takes Allopurinol for prophylaxis. Monitor uric acid every 4 to 6 months. 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 I have advised her to continue to work with Dr. Pope for DM management. She he has a subnephrotic range proteinuria UPCR 1.2 g/g creatinine. Continue lisinopril 10 mg daily. Due to her advanced CKD she is not a suitable candidate for Farxiga, Jardiance or finerenone. Mar,Secondary hyperparathyroidism (ICD-10 - N25.81)MBD parameters including PTH, calcium are phosphorus are within the goal but Vit D is low. I have advised her to Continue Vit D 5000 units daily Mar,Hyperkalemia (ICD-10 - E87.5)She has hyperkalemia likely due to the CKD and lisinopril. Advised low potassium diet and provide information about it. [employer] Other 03-16-2023 Evaluation note* Encounter Date Diagnosis [...] 3 months to adjust medication as indicated. Dec,nemia of renal disease (ICD-10 - D63.1)Hb is improving with Retacrit and has adequate Iron stores. Continue oral Iron. Continue Retacrit ev jelena 6 weeks Dec,Hypertensive chronic kidney disease with stage 1 through stage 4 chronic kidney disease, or unspecified chronic kidney disease (ICD-10 - I12.9) Her Bp is controlled at home but sometimes runs high in the office. She appears to be euvolemic. Continue current dose of carvedilol. Continue Lisinopril. She was advised to check home blood pressureand keep records. She might need diuretics for better blood pressure control. Dec,Idiopathic chronic gout without tophus, unspecified site (ICD-10 - M1A.00X0)She has gout and takes Allopurinol for prophylaxis. Monitor uric acid every 4 to 6 months. 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 I have advised her to continue to work with Dr. Pope for DM management. She he has a subnephrotic range proteinuria UPCR 1.2 g/g creatinine. Continue lisinopril 10 mg daily. Due to her advanced CKD she is not a suitable candidate for Farxiga, Jardiance or finerenone. Dec,Secondary hyperparathyroidism (ICD-10 - N25.81)MBD parameters including PTH, calcium are phosphorus are within the goal but Vit D is low. I have advised her to Continue Vit D 5000 units daily [employer] Other 01-30-2023 Evaluation note* Encounter Date Diagnosis [...] 3 months to adjust medication as indicated. Oct,nemia of renal disease (ICD-10 - D63.1)Hb is improving with Retacrit and has adequate Iron stores. Continue oral Iron. Continue Retacrit ev jelena 6 weeks Oct,Hypertensive chronic kidney disease with stage 1 through stage 4 chronic kidney disease, or unspecified chronic kidney disease (ICD-10 - I12.9) Her Bp is controlled at home but sometimes runs high in the office. She appears to be euvolemic. Continue current dose of carvedilol. Continue Lisinopril. She was advised to check home blood pressureand keep records. She might need diuretics for better blood pressure control. Oct,Idiopathic chronic gout without tophus, unspecified site (ICD-10 - M1A.00X0)She has gout and takes Allopurinol for prophylaxis. Monitor uric acid every 4 to 6 months. 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 I have advised her to continue to work with Dr. Pope for DM management. She he has a subnephrotic range proteinuria UPCR 1.2 g/g creatinine. Continue lisinopril 10 mg daily. Due to her advanced CKD she is not a suitable candidate for Farxiga, Jardiance or finerenone. Oct,Secondary hyperparathyroidism (ICD-10 - N25.81)MBD parameters including PTH, calcium are phosphorus are within the goal but Vit D is low. I have advised her to Continue Vit D 5000 units daily [employer] Other 12-22-2022 Evaluation note* Encounter Date Diagnosis [...] 3 months to adjust medication as indicated. Sep,nemia of renal disease (ICD-10 - D63.1)Hb is below the goal and has adequate Iron stores. Continue oral Iron. Continue Retacrit every 6 weeks Sep,Hypertensive chronic kidney disease with stage 1 through stage 4 chronic kidney disease, or unspecified chronic kidney disease (ICD-10 - I12.9) Her Bp is controlled at home but sometimes runs high in the office. She appears to be euvolemic. Continue current dose of carvedilol. Continue Lisinopril. She was advised to check home blood pressureand keep records. She might need diuretics for better blood pressure control. Sep,Idiopathic chronic gout without tophus, unspecified site (ICD-10 - M1A.00X0)She has gout and takes Allopurinol for prophylaxis. Monitor uric acid every 4 to 6 months. 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 I have advised her to continue to work with Dr. Pope for DM management. She he has a subnephrotic range proteinuria UPCR 1.2 g/g creatinine. Continue lisinopril 10 mg daily. Due to her advanced CKD she is not a suitable candidate for Farxiga, Jardiance or finerenone. Sep,econdary hyperparathyroidism (ICD-10 - N25.81)MBD parameters including PTH, calcium are phosphorus are within the goal but Vit D is low. I have advised her to Continue Vit D 5000 units daily [employer] Other 11-16-2022 Evaluation note* Encounter Date Diagnosis [...] to slow down the progression of disease. Aug,nemia of renal disease (ICD-10 - D63.1)Hb is below the goal and has adequate Iron stores. Continue oral Iron. Continue Retacrit every 6 weeks Aug,Hypertensive chronic kidney disease with stage 1 through stage 4 chronic kidney disease, or unspecified chronic kidney disease (ICD-10 - I12.9) Her Bp is controlled at home but sometimes runs high in the office. She appears to be euvolemic. Continue current dose of carvedilol. Continue Lisinopril Aug,Idiopathic chronic gout without tophus, unspecified site (ICD-10 - M1A.00X0)She has gout and takes Allopurinol for prophylaxis. Her Uric acid is within the goal. 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 I have advised her to continue to work with Dr. Pope for DM management. She he has a subnephrotic range proteinuria UPCR 1.2 g/g creatinine. Continue lisinopril 10 mg daily. Due to her advanced CKD she is not a suitable candidate for Farxiga or Jardiance or finerenone. Aug,econdary hyperparathyroidism (ICD-10 - N25.81)MBD parameters including PTH, calcium are phosphorus are within the goal but Vit D is low. I have advised her to Continue Vit D 5000 units daily [employer] Other 08-04-2022 Evaluation note* Encounter Date Diagnosis Assessment Notes Treatment Notes Treatment Clinical Notes May, Hypertensive chronic kidney disease with stage 1 through stage 4 chronic kidney disease, or unspecified chronic kidney disease (ICD-10 - I12.9) [employer] Other 08-02-2022 Evaluation note* Encounter Date Diagnosis [...] to slow down the progression of disease. May,nemia of renal disease (ICD-10 - D63.1)Hb is below the goal and has adequate Iron stores. Continue oral Iron. Will start Retacrit after insurance approval May,Hypertensive chronic kidney disease with stage 1 through stage 4 chronic kidney disease, or unspecified chronic kidney disease (ICD-10 - I12.9) Her Bp is controlled and he appears to be euvolemic. Continue current dose of carvedilol. Continue Lisinopril May,Idiopathic chronic gout without tophus, unspecified site (ICD-10 - M1A.00X0)She has gout and takes Allopurinol for prophylaxis. Her Uric acid is within the goal. 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 I have advised her to continue to work with Dr. Pope for DM management. She he has a subnephrotic range proteinuria UPCR 1.2 g/g creatinine. I have prescribed low- dose of lisinopril 10 mg daily. May,econdary hyperparathyroidism (ICD-10 - N25.81)MBD parameters including PTH, calcium are phosphorus are within the goal but Vit D is low. I have advised her to Continue Vit D 5000 units daily [employer] Other 07-19-2022 Evaluation note* Encounter Date Diagnosis Assessment Notes Treatment Notes Treatment Clinical Notes Apr, Hypertensive chronic kidney disease with stage 1 through stage 4 chronic kidney disease, or unspecified chronic kidney disease (ICD-10 - I12.9) [employer] Other 04-14-2022 Evaluation note* Encounter Date Diagnosis [...] to slow down the progression of disease. Jan,Hypertensive chronic kidney disease with stage 1 through stage 4 chronic kidney disease, or unspecified chronic kidney disease (ICD-10 - I12.9) Her Bp is high and he appears to be euvolemic. Continue current dose of carvedilol. Start Lisinopril Jan,Idiopathic chronic gout without tophus, unspecified site (ICD-10 - M1A.00X0)She has gout and takes Allopurinol for prophylaxis. Her Uric acid is within the goal. Continue Allopurinol 300 mg daily Jan,nemia of renal disease (ICD-10 - D63.1)Hb is within the goal and has adequate Iron stores. Continue oral Iron. 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 I have advised her to continue to work with Dr. Pope for DM management. She he has a subnephrotic range proteinuria UPCR 1.2 g/g creatinine. I have prescribed low- dose of lisinopril 10 mg daily. Jan,econdary hyperparathyroidism (ICD-10 - N25.81)MBD parameters including PTH, calcium are phosphorus are within the goal but Vit D is low. I have advised her to stop Calcium and advised her to take Vit D 1000 units daily [employer] Other Evaluation noteNo InformationNort [employer] Other Evaluation note* Diagnosis Type 2 diabetes mellitus with hyperglycemia, with long-term 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 ([facility])- Primary Vitamin D deficiency Microalbuminuria Proteinuria Hyperlipemia, mixed ([facility]) Mixed hyperlipidemia Primary hypertension (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) Chronic lymphocytic thyroiditis Encounter for dietary consultation Chronic renal disease, stage IV ([facility]) Chronic kidney disease, Stage IV [...] with long-term 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 ([facility]) [facility] Diagnosis Onychomycosis- Primary Dermatophytosis of nail Pain in both feet Corns and callosities Type 2 diabetes mellitus without complication, with long-term 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 ([facility]) [facility]* Diagnosis Type 2 diabetes mellitus with hyperglycemia, with long-term 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 ([facility])- Primary Vitamin D deficiency Microalbuminuria Proteinuria Hyperlipemia, mixed ([facility]) Mixed hyperlipidemia Primary hypertension ([facility]) Unspecified essential hypertension Insulin long-term use (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) Chronic lymphocytic thyroiditis Encounter for dietary consultation Chronic renal disease, stage IV ([facility]) Chronic kidney disease, Stage IV (severe) [facility] Diagnosis Atherosclerosis of [place] coronary artery of [place] heart without angina 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 Hypertensive urgency Shortness of breath Paroxysmal atrial fibrillation ([facility]) Atrial fibrillation Localized edema Edema documented in [facility] encounter [facility]* Diagnosis Paroxysmal atrial fibrillation ([facility])- Primary Atrial fibrillation Stage 4 chronic kidney disease ([facility]) 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 ([facility]) Other forms of angina pectoris ([facility]) Essential hypertension Unspecified essential hypertension Atherosclerosis of [place] coronary artery of [place] heart without angina 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 Hypertensive urgency Shortness of breath Localized edema Edema documented in this encounter [facility]* Diagnosis Medication management- Primary documented in this encounter [facility]* Diagnosis Medication management- Primary Atherosclerosis of [place] coronary artery of [place] heart without angina 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 Hypertensive urgency Shortness of breath Paroxysmal atrial fibrillation ([facility]) Atrial fibrillation Localized edema Edema documented in this encounter [facility]* Diagnosis Onset Date Resolution Status Admit Date Anemia of renal disease acuteApr2024 8:59amAsymptomatic bacteriuriaacuteApr2024 8:59am CKD (chronic kidney disease) stage 4, GFR 15-29 ml/minacuteApr2024 8:59amGoutacuteApril 2024 8:59amHyperlipidemiaacuteApril 2024 8:59am Hypertensive chronic kidney disease with stage 1 through stage 4 chronic kiacute Alejandra 2024 8:59amSecondary hyperparathyroidismacuteApr2024 8:59am Type 2 diabetes mellitus with diabetic chronic kidney diseaseacuteApr2024 8:59am [facility] Work Phone: Evaluation note* Diagnosis Type 2 diabetes mellitus with hyperglycemia, with long-term current use of insulin ([facility])- Primary Vitamin D deficiency Microalbuminuria Proteinuria Hyperlipemia, mixed ([facility]) Mixed hyperlipidemia Primary hypertension (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) Chronic lymphocytic thyroiditis Encounter for dietary consultation Chronic renal disease, stage IV ([facility]) Chronic kidney disease, Stage IV (severe) documented in this encounter [facility]* Diagnosis Hyperlipidemia, unspecified hyperlipidemia type- Primary Atherosclerosis of [place] coronary artery of [place] heart without angina 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 Hypertensive urgency Shortness of breath Paroxysmal atrial fibrillation ([facility]) Atrial fibrillation Localized edema Edema documented in this encounter [facility]* Diagnosis Seborrheic keratosis- Primary Seborrheic keratosis, inflamed Solar purpura Lentigines documented in this encounter [facility] HealthcareEvaluation noteNo assessment information availableTr[facility] Work Phone: Evaluation note* Diagnosis Type 2 diabetes mellitus with hyperglycemia, with long-term current use of insulin ([facility])- Primary Vitamin D deficiency Microalbuminuria Proteinuria Hyperlipemia, mixed Mixed hyperlipidemia Insulin long-term use ([facility]) Encounter for long-term (current) use of insulin Primary hypertension Unspecified essential hypertension Pema's disease Chronic lymphocytic thyroiditis Encounter for dietary consultation Chronic renal disease, stage IV ([facility]CC) Chronic kidney disease, Stage IV (severe) documented in this encounter [facility] HealthcareEvaluation note* Diagnosis Onset Date Resolution Status Admit Date Anemia of renal disease acuteOctober 2024 9:02amAsymptomatic bacteriuriaacuteOctober 2024 9:02amCKD (chronic kidney disease) stage 4, GFR 15-29 ml/minacuteOctober 2024 9:02amGoutacuteOctober 2024 9:02amHyperlipidemiaacuteOctober 2024 9:02amHypertensive chronic kidney disease with stage 1 through stage 4 chronic kiacuteOctober 2024 9:02amSecondary hyperparathyroidismacuteOctober 2024 9:02amType 2 diabetes mellitus with diabetic chronic kidney diseaseacute July 07, 2025 9:02am [facility] Work Phone: History general Narrative - Reported* Type Description Date Medical History HYPERTESIVE URGENCY Medical HistoryDYSPNEAMedical HistoryLOW BACK PAINMedical HistoryOSTEOPENIA Medical HistoryCAROTID ARTERY DISEASEMedical HistoryEDEMAMedical HistoryALLERGIC RHINITISMedical HistoryVENTRICULAR HYPERTROPHYMedical HistoryHYPERLIPIDEMIA Medical HistoryHYPERTENSIONMedical HistoryMITRAL INSUFFICIENCYMedical History DIABETIC RETINOPATHYMedical HistoryANEMIA IRON DEFICIENCYMedical HistoryGERD Medical HistoryCATARACTMedical HistoryCHEST PAINMedical HistoryARTHRITISMedical History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Medical HistoryCOVID 2019Surgical HistorySINUS SURGERYSurgical HistoryHYSTERECTOMYSurgical HistoryGALLBLADDER Surgical HistoryBILATERAL ROTATER CUFF REPAIRSurgical HistoryCATARACTSSurgical HistorySKIN CANCER REMOVED WITH RECONSTRUCTION ON NOSE10/2019S[facility]01/01/2021Hospitalization HistoryELEVATED BLOOD PRESSUREHospitalization HistorySEE ABOVEHospitalization HistoryCOVID 09/2020 [employer] Other History general Narrative - Reported* Type Description Date Medical History HYPERTESIVE URGENCY Medical HistoryDYSPNEAMedical HistoryLOW BACK PAINMedical HistoryOSTEOPENIA Medical HistoryCAROTID ARTERY DISEASEMedical HistoryEDEMAMedical HistoryALLERGIC RHINITISMedical HistoryVENTRICULAR HYPERTROPHYMedical HistoryHYPERLIPIDEMIA Medical HistoryHYPERTENSIONMedical HistoryMITRAL INSUFFICIENCYMedical History DIABETIC RETINOPATHYMedical HistoryANEMIA IRON DEFICIENCYMedical HistoryGERD Medical HistoryCATARACTMedical HistoryCHEST PAINMedical HistoryARTHRITISMedical History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Medical HistoryCOVID 2019Medical History BLOOD CLOT AFTER A ROOT CANAL, PER PATIENT SHE DID LOSE A LOT OF BLOODSurgical HistorySINUS SURGERYSurgical HistoryHYSTERECTOMYSurgical HistoryGALLBLADDER Surgical HistoryBILATERAL ROTATER CUFF REPAIRSurgical HistoryCATARACTSSurgical HistorySKIN CANCER REMOVED WITH RECONSTRUCTION ON Surgical HistoryQUAD [facility]PASS [facility]01/01/2021Hospitalization HistoryELEVATED BLOOD PRESSUREHospitalization HistorySEE ABOVEHospitalization HistoryCOVID 09/2020 [employer] Other history general Narrative - Reported* Type Description Date Medical History HYPERTESIVE URGENCY Medical HistoryDYSPNEAMedical HistoryLOW BACK PAINMedical HistoryOSTEOPENIA Medical HistoryCAROTID ARTERY DISEASEMedical HistoryEDEMAMedical HistoryALLERGIC RHINITISMedical HistoryVENTRICULAR HYPERTROPHYMedical HistoryHYPERLIPIDEMIA Medical HistoryHYPERTENSIONMedical HistoryMITRAL INSUFFICIENCYMedical History DIABETIC RETINOPATHYMedical HistoryANEMIA IRON DEFICIENCYMedical HistoryGERD Medical HistoryCATARACTMedical HistoryCHEST PAINMedical HistoryARTHRITISMedical History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Medical HistoryCOVID 2019Medical History BLOOD CLOT AFTER A ROOT CANAL, PER PATIENT SHE DID LOSE A LOT OF BLOODMedical HistoryUTISurgical HistorySINUS SURGERYSurgical HistoryHYSTERECTOMYSurgical HistoryGALLBLADDERSurgical HistoryBILATERAL ROTATER CUFF REPAIRSurgical History CATARACTSSurgical HistorySKIN CANCER REMOVED WITH RECONSTRUCTION ON Surgical HistoryQUAD [facility]PASS [facility]01/01/2021Hospitalization HistoryELEVATED BLOOD PRESSUREHospitalization HistorySEE ABOVEHospitalization BskabiaQUGCE19/2020 [place] [employer] Other History general Narrative - ReportedNort [employer] Other History general Narrative - Reported* Type Description Date Medical History HYPERTESIVE URGENCY Medical HistoryDYSPNEAMedical HistoryLOW BACK PAINMedical HistoryOSTEOPENIA Medical HistoryCAROTID ARTERY DISEASEMedical HistoryEDEMAMedical HistoryALLERGIC RHINITISMedical HistoryVENTRICULAR HYPERTROPHYMedical HistoryHYPERLIPIDEMIA Medical HistoryHYPERTENSIONMedical HistoryMITRAL INSUFFICIENCYMedical History DIABETIC RETINOPATHYMedical HistoryANEMIA IRON DEFICIENCYMedical HistoryGERD Medical HistoryCATARACTMedical HistoryCHEST PAINMedical HistoryARTHRITISMedical History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Medical HistoryCOVID 2019Medical History BLOOD CLOT AFTER A ROOT CANAL, PER PATIENT SHE DID LOSE A LOT OF BLOODMedical HistoryUTIMedical 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 HistorySINUS SURGERYSurgical HistoryHYSTERECTOMYSurgical HistoryGALLBLADDERSurgical History BILATERAL ROTATER CUFF REPAIRSurgical HistoryCATARACTSSurgical HistorySKIN CANCER REMOVED WITH RECONSTRUCTION ON Surgical HistoryQUAD [facility]01/01/2021Hospitalization HistoryELEVATED BLOOD PRESSURE Hospitalization HistorySEE ABOVEHospitalization [id number]/2020 [facility] [employer] Other InstructionsNot on filedocumented in this [...] for referral (narrative)No reason for referral information availableJoint [facility] Work Phone: Summary Purpose Family History Relationship Condition Age at Onset Recorded Date/T lorenzo mother Myocardial infarction Unknown fatherMalignant neoplasmUnknownbrotherMyocardial infarctionUnknownsister Myocardial infarctionUnknownbrotherHeart diseaseUnknownDiabetes mellitusUnknown fatherHypertensionUnknownDeceasedUnknownMalignant neoplasmUnknownmotherDeceased UnknownHeart diseaseUnknownsonHeart diseaseUnknownMyocardial infarctionUnknown sisterDiabetes mellitusUnknownHypertensionUnknown Advance Directives Date ActivatedDate InactivatedComments12/28/2020 2:33 PM01/03/2021 7:38 PMCode StatusDate ActivatedDate InactivatedCommentsFull Code12/28/2020 2:33 PM01/03/2021 7:38 PM Advance Directive Response Recorded Date/ [...] 0pm Unknown May 25, 2025 11 :55am Chief Complaint Admit Date Unknown April 21, 2025 10:1 0pm Unknown May 25, 2025 11 :55am RENAL 6 MONTH F/U July 07, 2025 9: 02am Reason for Visit Admit Date Anemia of renal disease July 07 9:02am Asymptomatic bacteriuria July 07 9:02am CKD (chronic kidney disease) stage 4, GF R 15-29 ml/min July 07, 2025 9:02am Gout July 07, 2025 9: 02am Hyperlipidemia July 07, 2025 9: 02am Hypertensive chronic kidney disease with stage 1 through stage 4 chronic ki July 07, 2025 9:02am Secondary hyperparathyroidism July 9:02am Type 2 diabetes mellitus wit h diabetic chronic kidney disease July 07, 2025 9:02am Additional Source Comments INFORMATION SOURCE (unrecogn ized section and content) DATE CREATED AUTHOR 04/02/[address] [facility] DATE CREATED AUTHOR AUTHOR'S ORGANIZ ATION 01/27/2023 [facility] DATE CREATED AUTHOR AUTHOR'S ORGANIZ ATION 01/18/2024 [facility] DATE CREATED AUTHOR AUTHOR'S ORGANIZ ATION 06/01/2025 [facility] DATE CREATED AUTHOR AUTHOR'S ORGANIZ ATION 06/15/2025 [facility] DATE CREATED AUTHOR AUTHOR'S ORGANIZ ATION 06/21/[address] [facility] REASON FOR VISIT (unrecogniz ed section and content) ReasonCommentsDiabetes MellitusFollow-upReasonCommentsSkin ProblemReasonComments Suture / Staple RemovalReasonCommentsDiabetesThyroid ProblemFollow-upReason CommentsMed RefillReasonCommentsHospital Follow-upTBH HTN AND 1 MONTH HypertensionAtrial FibrillationShortness of BreathReasonCommentsThyroid Problem Diabetes MellitusReasonCommentsDiabetesThyroid ProblemHyperlipidemia Care Teams (unrecognized sec tion and content) Team Status: Active Member Role Status Rhett Gutierres MD Primary Care Provider Active Team Status: Inactive Member Role Status Dates Dhruv Gutierres MD Primary Care Provider Active Start: April 21, 2025 End: April 21, 2025Daryl Tra Serrano ProviderActiveStart: April 21, 2025 End: April 21, 2025Team MemberRelationshipSpecialtyStart DateEnd Date Dhruv Gutierres MD [address] [facility] [place] [address] PCP - GeneralFami Medicine10/22/23Team MemberRelationshipSpecialtyStart DateEnd Date Dhruv Gutierres MD [address] [place] [address] PCP - Generalmi Medicine10/22/23Team MemberRelationshipSpecialtyStart DateEnd Date Dhruv Gutierres MD [address] [facility] [place] [address] PCP - [facility] Medicine10/22/23Team MemberRelationshipSpecialtyStart DateEnd Date Dhruv Gutierres MD [address] [place] [address] PCP - Generalmi Medicine10/22/23Team MemberRelationshipSpecialtyStart DateEnd Date Dhruv Gutierres MD [address] [place] [address] PCP - Generalmi Medicine10/22/23Team MemberRelationshipSpecialtyStart DateEnd Date Dhruv Gutierres MD [address] [place] [address] PCP - GeneralFamily Medicine10/22/23Team MemberRelationshipSpecialtyStart DateEnd Date Dhruv Gutierres MD [address] [place] [address] PCP - GeneralFamily Medicine10/22/23Team MemberRelationshipSpecialtyStart DateEnd Date Dhruv Gutierres MD [address] [place] [address] PCP - GeneralFamily Medicine10/22/23Team MemberRelationshipSpecialtyStart DateEnd Date Dhruv Gutierres MD [address] [place] [address] PCP - GeneralFamily Medicine10/22/23Team MemberRelationshipSpecialtyStart DateEnd Date Dhruv Gutierres MD [address] [facility] [address] PCP - GeneralFamily Medicine10/20/20Team MemberRelationshipSpecialtyStart DateEnd Date Dhruv Gutierres MD [address] [facility] [place] [address] PCP - GeneralFamily Medicine10/20/20Team MemberRelationshipSpecialtyStart DateEnd Date Dhruv Gutierres MD [address] [facility] [place] [address] PCP - GeneralFamily Medicine10/20/20Team MemberRelationshipSpecialtyStart DateEnd Date Dhruv Gutierres MD [address] [place] [address] PCP - GeneralFamily Medicine10/20/20Team MemberRelationshipSpecialtyStart DateEnd Date Dhruv Gutierres MD PCP - GeneralFamily Medicine10/20/20Team MemberRelationshipSpecialtyStart DateEnd Date Dhruv Gutierres MD PCP - GeneralFamily Medicine10/20/20Team MemberRelationshipSpecialtyStart DateEnd Date Dhruv Gutierres MD PCP - GeneralFamily Medicine10/20/20Team MemberRelationshipSpecialtyStart DateEnd Date Dhruv Gutierres MD PCP - Generalmily Medicine10/20/20 Team Status: Active Member Role Status Dates Dhruv Gutierres MD Primary Care Provider Active Start: January 05, 2025 Ronjenny Martinez MDAttarielle ProviderActiveStart: January 05, 2025 Team Status: Inactive Member Role Status Dates Dhruv Gutierres MD Primary Care Provider Active Start: January 14, 2025 End: January 14bdjenny Martinez MDAttending ProviderActiveStart: January 14, 2025 End: January 14, 2025Team MemberRelationshipSpecialtyStart DateEnd Date Dhruv Gutierres MD PCP - GeneralFamily Medicine10/22/23Team MemberRelationshipSpecialtyStart DateEnd Date Dhruv Gutierres MD PCP - GeneralFamily Medicine10/22/23Team MemberRelationshipSpecialtyStart DateEnd Date Dhruv Gutierres MD PCP - [facility]10/20/20Team MemberRelationshipSpecialtyStart DateEnd Date Dhruv Gutierres MD PCP - [facility]10/22/23Team MemberRelationshipSpecialtyStart DateEnd Date Dhruv Gutierres MD PCP - [facility]10/22/23 Team Status: Inactive Member Role Status Dates Dhruv Gutierres MD Attending Provider Active Sta rt: May 25, 2025 End: May 25, 2025Team MemberRelationshipSpecialtyStart DateEnd Date Dhruv Gutierres MD [facility]10/22/23 Team Status: Active Member Role Status Dates Ron Martinez MD Attending Provider Active Start : June 29, 2025 Team Status: Inactive Member Role Status Dates Ron Martinez MD Attending Provider Active Start : July 07, 2025 End: July 07, 2025DoMichelle Brennan Care ProviderActiveStart: July 07, 2025 End: July 07, 2025 Goals (unrecognized section and content) Goals may [...] BE BASED ON THE PRIMARY CLINICAL RECORDS. [facility] [employer] [facility]. provides no warranty or guarantee of the accuracy or completeness of information in this document.
--- OUTSIDE RECORDS SUMMARY | 2025-07-28 07:56 | XMS_ITS | Patient Health Record ---
Author Organization [facility] [place] Address [address] [place] [address] Care Team Providers Care Marketing Content Manager Name Role Phone Jeff Rubi Primary Care Provider [phone] Allergies Allergen (clinical drug ingredient) Drug/Non Drug Allergy documented on EMR Reaction Allergy Type Onset Date Status amoxicillin / clavulanate Augmentin Unknown Drug Aller gy Activesulfamethoxazole / trimethoprimBactrimUnknownDrug AllergyActivedoxazosin CarduraUnknownDrug AllergyActiveamlodipineNorvascUnknownDrug AllergyActive Results Component Value Reference Range Notes BNP Reviewed date:12/31/2024 08:41:15 PM Interpretation: Performing Lab: Notes/Report: [facility] , NT Pro B Type Natriuretic Pept 1558.0 <=1800.0 p g/mL Performing Lab:see noteML - [facility] LBCBC AUTO DIFF Reviewed date:12/31/2024 08:41:15 PM Interpretation: Performing Lab: Notes/Report: [facility] ,White Blood Count7.24.0-11.0 10 3/uLRed Blood Count3.324.20-5.40 10 6/uL Uhqwoepyha26.212.0-16.0 g/gIFpjmguuoxp09.636.0-48.0 %Mean Corpuscular Apikti82.2 81.0-99.0 fLMean Corpuscular Lvfxnnkgqd45.726.7-34.0 pgMean Corpuscular HGB Conc 33.329.9-35.2 g/dLRed Cell Distribution Width15.311.0-15.0 %Platelet Dtecz990 150-450 10 3/uLMean Platelet Volume9.59.5-13.5 fLNeutrophils Percent Auto66.6 43.0-75.0 %Lymphocytes Percent Auto23.020.5-60.0 %Monocytes Percent Auto7.51.7- 12.0 %Eosinophils Percent Auto1.90.9-7.0 %Basophils Percent Auto0.60.2-2.0 % Immature Granulocytes Pct Auto0.40.0-0.5 %Neutrophils Absolute Auto4.81.4-6.5 10 3/uLLymphocytes Absolute Auto1.71.2-3.8 10 3/uLMonocytes Absolute Auto0.50.3-0.8 10 3/uLEosinophils Absolute Auto0.10.0-0.7 10 3/uLBasophils Absolute Auto0.00.0- 0.1 10 3/uLImmature Granulocytes Abs Auto0.030.00-0.03 10 3/uLPerforming Lab:see noteML - [facility] LBPROF 14(COMP METB) Reviewed date:12/31/2024 08:41:15 PM Interpretation: Performing Lab: Notes/Report: [facility] ,Cdqmki101756-409 mmol/LPotassium4.53.5-5.1 mmol/SQzkqjngb48145-231 mmol/LCarbon Ghomfmp11.621.0-32.0 mmol/LAnion Gap15.9Cuotwyi24778-698 mg/dLBlood Urea Apzvupbv84.07.0-18.0 mg/dLCreatinine1.980.55-1.02 mg/dLEstimated GFR ( Cozaubu89>=60 mL/min/1.73m 2Estimated GFR (Non- Ame24>=60 mL/min/1.73m 2 BUN Creatinine Ratio17.1Fpakynt7.18.5-10.1 mg/dLBilirubin Total0.60.2-1.0 mg/dL Aspartate Amino Mvmhoqzrtfw7580-14 U/LAlanine Jswbaeumfjvfbexw1088-23 U/L Alkaline Twlfqkitrcz34622-570 U/LTotal Protein7.36.4-8.2 g/dLAlbumin Level3.5 3.4-5.0 g/dLGlobulin3.8Albumin Globulin Ratio0.9Performing Lab:see noteML - [facility] LBXR chest 1V Reviewed date:09/20/2024 05:06:04 PM Interpretation: Performing Lab: Notes/Report: Source Facility: [facility] [place] [address] [place] [address] XRay Report Signed Patient: KYLAH ROBIN MR#: [id number] : 1945 Acct:[id number] Age/Sex: 78 / F ADM Date: 09/20/24 Loc: ER Attending Dr: Ordering Physician: Luis Lugo Date of Service: 09/20/24 Procedure(s): XR chest 1V Accession Number(s): [id number] cc: Dhruv Rubi M.D.; Luis Lugo [place] [address] Patient Name: KYLAH ROBIN MRN: [id number] date: 1945 Sex: F Assigned Patient Location: ER Current Patient Location: ER Accession/Order Number: [id number] Exam Date: 09/20/2024 15:28 Report Date: 09/20/2024 [...] By: Solomon Beth M.D. Signed By: 09/20/24 1604 DD/ 7113 TD/TT: Collar Separator:CHIN KNEE RT 3V Reviewed date:03/04/2025 06:23:39 PM Interpretation: Performing Lab: Notes/Report: Source Facility: [place] [address] [place] [address] XRay Report Signed with Isha Patient: KYLAH ROBIN MR#: [id number] : 1945 Acct:[id number] Age/Sex: 79 / F ADM Date: 03/03/25 Loc: LAB Attending Dr: Dhruv Rubi M.D. Ordering Physician: Dhruv Rubi M.D. Date of Service: 03/03/25 Procedure(s): XR knee RT 3V Accession Number(s): [id number] cc: Dhruv Rubi M.D. ADDENDUM The [place] [address] This is an addendum Correction: Addendum Dictated By: Mariusz Hernandez D.O. 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 Impression dictated by: Mariusz Hernandez M.D. 03/04/2025 9:17 AM Dictation Location: [place] [address] Electronically authenticated by: [id number] Y Date: 03/04/2025 09:17 Patient Name: KYLAH ROBIN MRN: [id number] date: 1945 Sex: F Assigned Patient Location: LAB Current Patient Location: Accession/Order Number: [id number] Exam Date: 03/04/2025 09:16 Report Date: 03/04/2025 09:17 At the request of: DHRUV RUBI MD Procedure: XR knee RT 3V The [place] [address] Patient Name: KYLAH ROBIN MRN: [id number] date: 1945 Sex: F Assigned Patient Location: LAB Current Patient Location: LAB Accession/Order Number: [id number] Exam Date: 03/03/2025 16:06 Report Date: 03/03/2025 [...] Hernandez M.D. 03/03/2025 4:08 PM Dictation Location: [place] [address] Electronically authenticated by: [id number] Y Date: 03/03/2025 16:08 Addendum Dictated By: Mariusz Hernandez D.O. Addendum Signed By: 03/04/25 0 919 Addendum Cosigned By: DD/ TD/TT: / [place] [address] Patient Name: KYLAH ROBIN MRN: [id number] date: 1945 Sex: F Assigned Patient Location: LAB Current Patient Location: LAB Accession/Order Number: [id number] Exam Date: 03/03/2025 16:06 Report Date: 03/03/2025 [...] Hernandez M.D. 03/03/2025 4:08 PM Dictation Location: [place] [address] Electronically authenticated by: [id number] Y Date: 03/03/2025 16:08 Dictated By: Mariusz Hernandez D.O. Signed By: 03/03/25 1611 DD/ 1608 TD/TT: Collar Separator:EDEN - IN OFFICE Reviewed date:07/26/2025 09:31:04 AM Interpretation: Performing Lab: Notes/Report: Qfqtjpv83826 - 106 MG/DLUA RANDOM W or MICROSCOPIC Reviewed date:01/05/2025 07:25:49 PM Interpretation: Performing Lab: Notes/Report: [facility] ,Color UrineLT. YELLOWYELLOWClarity UrineCLOUDYCLEARSpecific [place] Urine1.020 1.005-1.025pH Urine6.05.0-9.0Protein Zbais073BUQ/TRACE mg/dLGlucose Urine UA NEGATIVENEGATIVE mg/dLBilirubin UrineNEGATIVENEGATIVEKetones UrineNEGATIVE NEGATIVE mg/dLBlood UrineNEGATIVENEGATIVENitrite UrineNEGATIVENEGATIVE Urobilinogen Urine0.20.2-1.0 EU/dLLeukocyte Esterase UrineMODERATENEGATIVEWBC Urine>100NONE SEEN #/HPFRBC Urine0-20-2 #/HPFBacteria UrineLARGENONE SEEN #/HPF Mucus UrineNONE SEENNONE SEENSquamous Epithelial Cell UrineMODERATENONE/RARE #/LPFCrystals Seen?None SeenNone Seen #/HPFCast Seen?NONE SEENNONE SEEN #/LPF Performing Lab:see noteML - [facility] LBXR knee RT 4V Reviewed date:04/14/2025 07:10:06 PM Interpretation: Performing Lab: Notes/Report: Source Facility: [facility] [place] [address] [place] [address] XRay Report Signed Patient: KYLAH ROBIN MR#: [id number] : 1945 Acct:[id number] Age/Sex: 79 / F ADM Date: 04/14/25 Loc: RAD Attending Dr: Dhruv Rubi M.D. Ordering Physician: Dhruv Rubi M.D. Date of Service: 04/14/25 Procedure(s): XR knee RT 4V Accession Number(s): [id number] cc: Dhruv Rubi M.D. The [address] [address] Patient Name: KYLAH ROBIN MRN: [id number] date: 1945 Sex: F Assigned Patient Location: [facility] Current Patient Location: RAD Accession/Order Number: [id number] Exam Date: 04/14/2025 09:52 Report Date: 04/14/2025 [...] Good M.D. 04/14/2025 9:55 AM Dictation Location: [place] [address] Electronically authenticated by: [id number] Y Date: 04/14/2025 09:55 Dictated By: Cary Good M.D. Signed By: 04/14/25 0958 DD/ 4 TD/TT: Collar Separator:CBC AUTO DIFF Reviewed date:05/02/2025 09:35:15 PM Interpretation: Performing Lab: Notes/Report: [facility] ,White Blood Count16.34.0-11.0 10 3/uLRed Blood Count3.494.20-5.40 10 6/uL Qwvlgmfhpm15.912.0-16.0 g/gUPygebkizfr85.936.0-48.0 %Mean Corpuscular Kzdskz53.4 81.0-99.0 fLMean Corpuscular Rdrskpetke29.226.7-34.0 pgMean Corpuscular HGB Conc 34.229.9-35.2 g/dLRed Cell Distribution Width15.611.0-15.0 %Platelet Pkgti957 150-450 10 3/uLMean Platelet Volume9.09.5-13.5 fLNeutrophils Percent Auto90.1 43.0-75.0 %Lymphocytes Percent Auto5.320.5-60.0 %Monocytes Percent Auto3.61.7- 12.0 %Eosinophils Percent Auto0.30.9-7.0 %Basophils Percent Auto0.20.2-2.0 % Immature Granulocytes Pct Auto0.50.0-0.5 %Neutrophils Absolute Auto14.71.4-6.5 10 3/uLLymphocytes Absolute Auto0.91.2-3.8 10 3/uLMonocytes Absolute Auto0.60.3- 0.8 10 3/uLEosinophils Absolute Auto0.10.0-0.7 10 3/uLBasophils Absolute Auto0.0 0.0-0.1 10 3/uLImmature Granulocytes Abs Auto0.080.00-0.03 10 3/uLPerforming Lab:see noteML - [facility] LBLACTATE or LACTIC ACID Reviewed date:05/02/2025 09:35:15 PM Interpretation: Performing Lab: Notes/Report: [facility] ,Lactate/Lactic Acid2.70.4-2.0 mmol/LRESULTS CALLED TO DMITRIY LYNNEPerforming Lab:see noteML - [facility] LBPROF 14(COMP METB) Reviewed date:05/02/2025 09:35:15 PM Interpretation: Performing Lab: Notes/Report: [facility] ,Ivggct768075-878 mmol/LPotassium4.83.5-5.1 mmol/VNhrxgyee9251-368 mmol/LCarbon Ecmzlta99.021.0-32.0 mmol/LAnion Gap12.3Wsxrwuj31523-027 mg/dLBlood Urea Ttyaqjxu82.07.0-18.0 mg/dLCreatinine2.590.55-1.02 mg/dLEstimated GFR ( Hfdgbvy83>=60 mL/min/1.73m 2Estimated GFR (Non- Ame18>=60 mL/min/1.73m 2 BUN Creatinine Ratio15.4Wndpttr94.18.5-10.1 mg/dLBilirubin Total0.90.2-1.0 mg/dL Aspartate Amino Ntgainrofol6335-74 U/LAlanine Vbttqnoestzzwurw4559-47 U/L Alkaline Hxexbfzruth9866-769 U/LTotal Protein8.16.4-8.2 g/dLAlbumin Level3.43.4- 5.0 g/dLGlobulin4.7Albumin Globulin Ratio0.7Performing Lab:see noteML - [facility] KRUIVS-LgQ-7 Ag* Reviewed date:05/02/2025 09:35:15 PM Interpretation: Performing Lab: Notes/Report: [facility] ,SARS-CoV-2 AgPOSITIVENEGATIVE This test has not been FDA cleared [...] terminated or authorization is revoked sooner. Performing Lab:see noteML - [facility] LBUA Micro, reflex to culture Reviewed date:05/02/2025 09:35:15 PM Interpretation: Performing Lab: Notes/Report: [facility] ,Color UrineLT. YELLOWYELLOWClarity UrineCLEARCLEARSpecific [place] Urine1.020 1.005-1.025pH Urine6.05.0-9.0Protein Urine>=300NEG/TRACE mg/dLGlucose Urine UA NEGATIVENEGATIVE mg/dLBilirubin UrineNEGATIVENEGATIVEKetones UrineNEGATIVE NEGATIVE mg/dLBlood UrineTRACE-INEGATIVENitrite UrineNEGATIVENEGATIVE Urobilinogen Urine0.20.2-1.0 EU/dLLeukocyte Esterase UrineNEGATIVENEGATIVEWBC Urine0-2NONE SEEN #/HPFRBC Urine2-50-2 #/HPFBacteria UrineTRACENONE SEEN #/HPF Mucus UrineNONE SEENNONE SEENSquamous Epithelial Cell UrineNONE SEENNONE/RARE #/LPFCrystals Seen?None SeenNone Seen #/HPFCast Seen?NONE SEENNONE SEEN #/LPF Performing Lab:see noteML - [facility] LBXR chest 1V Reviewed date:05/02/2025 09:35:15 PM Interpretation: Performing Lab: Notes/Report: Source Facility: [place] [address] XRay Report Signed Patient: KYLAH ROBIN MR#: [id number] : 1945 Acct:[id number] Age/Sex: 79 / F ADM Date: 04/30/25 Loc: ER Attending Dr: Ordering Physician: Dmitriy Lynne Date of Service: 04/30/25 Procedure(s): XR chest 1V Accession Number(s): [id number] cc: Dmitriy Lynne; hDruv Rubi M.D. [place] [address] Patient Name: KYLAH ROBIN MRN: [id number] date: 1945 Sex: F Assigned Patient Location: ER Current Patient Location: ED.MAIN Accession/Order Number: [id number] Exam Date: 04/30/2025 22:00 Report Date: 04/30/2025 [...] Hernandez M.D. 04/30/2025 10:01 PM Dictation Location: [place] [address] Electronically authenticated by: [id number] Y Date: 04/30/2025 22:01 Dictated By: Mariusz Hernandez D.O. Signed By: 04/30/252202 DD/ 00 TD/TT: Collar Separator:UA RANDOM W or MICROSCOPIC Reviewed date:05/25/2025 08:41:24 PM Interpretation: Performing Lab: Notes/Report: [facility] ,Color UrineLT. YELLOWYELLOWClarity UrineCLEARCLEARSpecific [place] Urine1.010 1.005-1.025pH Urine5.55.0-9.0Protein UrineTRACENEG/TRACE mg/dLGlucose Urine UA NEGATIVENEGATIVE mg/dLBilirubin UrineNEGATIVENEGATIVEKetones UrineNEGATIVE NEGATIVE mg/dLBlood UrineNEGATIVENEGATIVENitrite UrinePOSITIVENEGATIVE Urobilinogen Urine0.20.2-1.0 EU/dLLeukocyte Esterase UrineMODERATENEGATIVEWBC Sxvbc76-53KLKW SEEN #/HPFRBC Urine0-20-2 #/HPFBacteria UrineMODERATENONE SEEN #/HPFMucus UrineNONE SEENNONE SEENSquamous Epithelial Cell UrineRARENONE/RARE #/LPFCrystals Seen?None SeenNone Seen #/HPFCast Seen?NONE SEENNONE SEEN #/LPF Urine Culture IndicatedALREADY ORDEREDPerforming Lab:see noteML - [facility] LBFERRITIN Reviewed date:06/29/2025 12:48:24 PM Interpretation: Performing Lab: Notes/Report: [facility] ,Bbwajstd473.08.0-252.0 ng/mLPerforming Lab:see noteML - [facility] LBMAGNESIUM Reviewed date:06/29/2025 12:48:24 PM Interpretation: Performing Lab: Notes/Report: [facility] ,Magnesium2.01.8-2.4 mg/dLPerforming Lab:see noteML - [facility] LBUA RANDOM W or MICROSCOPIC Reviewed date:06/29/2025 12:48:24 PM Interpretation: Performing Lab: Notes/Report: [facility] ,Color UrineLT. YELLOWYELLOWClarity UrineSLIGHTLY CLOUDYCLEARSpecific [place] Urine1.0201.005-1.025pH Urine5.55.0-9.0Protein Etqtv857AJU/TRACE mg/dLGlucose Urine UANEGATIVENEGATIVE mg/dLBilirubin UrineNEGATIVENEGATIVEKetones Urine NEGATIVENEGATIVE mg/dLBlood UrineNEGATIVENEGATIVENitrite UrineNEGATIVENEGATIVE Urobilinogen Urine0.20.2-1.0 EU/dLLeukocyte Esterase UrineMODERATENEGATIVEWBC Urine>100NONE SEEN #/HPFRBC Urine2-50-2 #/HPFBacteria UrineSMALLNONE SEEN #/HPF Mucus UrineNONE SEENNONE SEENSquamous Epithelial Cell UrineMODERATENONE/RARE #/LPFCrystals Seen?None SeenNone Seen #/HPFCast Seen?NONE SEENNONE SEEN #/LPF Performing Lab:see noteML - [facility] LBURIC ACID SERUM Reviewed date:06/29/2025 12:48:24 PM Interpretation: Performing Lab: Notes/Report: [facility] ,Uric Acid4.82.6-6.0 mg/dLPerforming Lab:see noteML - [facility] LB VITAMIN D 25 [place] Reviewed date:06/29/2025 12:48:24 PM Interpretation: Performing Lab: Notes/Report: [facility] ,Vitamin D30.2 <20 ng/mL Vit D deficient 20-<30 ng/mL Vit D insufficient 30-100 ng/mL Vit D sufficient >100 ng/mL Potential Toxicity Performing Lab:see noteML - [facility] LBCBC no Diff (Hemogram) Reviewed date:06/29/2025 12:48:24 PM Interpretation: Performing Lab: Notes/Report: [facility] ,White Blood Count7.44.0-11.0 10 3/uLRed Blood Count3.294.20-5.40 10 6/uL Cgzpwvmlcf68.312.0-16.0 g/eVSngykwdwqi23.136.0-48.0 %Mean Corpuscular Bfeeog56.5 81.0-99.0 fLMean Corpuscular Dxjuzvsfvl85.326.7-34.0 pgMean Corpuscular HGB Conc 34.229.9-35.2 g/dLRed Cell Distribution Width14.911.0-15.0 %Platelet Xyssd978 150-450 10 3/uLMean Platelet Volume9.69.5-13.5 fLPerforming Lab:see note - [facility] LBFERRITIN Reviewed date:09/01/2024 06:04:15 PM Interpretation: Performing Lab: Notes/Report: [facility] ,Xbawrnkf726.08.0-252.0 ng/mLPerforming Lab:[facility]McC[facility] LBIRON AND TIBC Reviewed date:09/01/2024 06:04:15 PM Interpretation: Performing Lab: Notes/Report: [facility] ,Iron61.050.0-170.0 ug/dLTotal Iron Binding Yympvsei977.0250.0-450.0 ug/dL Percent Iron Fmhtkgznvd68.8Performing Lab:see note - [facility] LB MAGNESIUM Reviewed date:09/01/2024 06:04:15 PM Interpretation: Performing Lab: Notes/Report: [facility] ,Magnesium1.91.8-2.4 mg/dLPerforming Lab:see note - [facility] LB RENAL FUNCTION PANEL Reviewed date:09/01/2024 06:04:15 PM Interpretation: Performing Lab: Notes/Report: [facility] ,Qxohdg949795-844 mmol/LPotassium3.93.5-5.1 mmol/IKcsopeiq91342-477 mmol/LCarbon Zdsvvpx04.821.0-32.0 mmol/LAnion Gap13.6Rxbrkus74976-730 mg/dLBlood Urea Gjwezbqw82.07.0-18.0 mg/dLCreatinine1.820.55-1.02 mg/dLEstimated GFR ( Ozbbnqy34>=60 mL/min/1.73m 2Estimated GFR (Non- Ame27>=60 mL/min/1.73m 2 BUN Creatinine Ratio24.4Rjpgyak3.78.5-10.1 mg/dLPhosphorus3.72.6-4.7 mg/dL Albumin Level2.93.4-5.0 g/dLPerforming Lab:[facility] noteMcC[facility] LB URIC ACID SERUM Reviewed date:09/01/2024 06:04:15 PM Interpretation: Performing Lab: Notes/Report: [facility] ,Uric Acid4.22.6-6.0 mg/dLPerforming Lab:see noteML - [facility] LB VITAMIN D 25 [place] Reviewed date:09/01/2024 06:04:15 PM Interpretation: Performing Lab: Notes/Report: [facility] ,Vitamin D35.4 <20 ng/mL Vit D deficient 20-<30 ng/mL Vit D insufficient 30-100 ng/mL Vit D sufficient >100 ng/mL Potential Toxicity Performing Lab:see note - [facility] LBCBC no Diff (Hemogram) Reviewed date:09/01/2024 06:04:15 PM Interpretation: Performing Lab: Notes/Report: [facility] ,White Blood Count6.34.0-11.0 10 3/uLRed Blood Count3.164.20-5.40 10 6/uL Hemoglobin9.912.0-16.0 g/mPRvocekvmkj24.836.0-48.0 %Mean Corpuscular Ksnpbu79.3 81.0-99.0 fLMean Corpuscular Aygazprcwn73.326.7-34.0 pgMean Corpuscular HGB Conc 33.229.9-35.2 g/dLRed Cell Distribution Width15.411.0-15.0 %Platelet Ztwgw392 150-450 10 3/uLMean Platelet Volume9.49.5-13.5 fLPerforming Lab:see note - [facility] LBUA RANDOM W or MICROSCOPIC Reviewed date:09/06/2024 12:29:49 PM Interpretation: Performing Lab: Notes/Report: [facility] ,Color UrineDK. ORANGEYELLOWClarity UrineCLEARCLEARSpecific [place] Urine1.010 1.005-1.025pH UrineCOLOR INTERFERENCE5.0-9.0Protein UrineCOLOR INTERFERENCE NEG/TRACE mg/dLGlucose Urine UACOLOR INTERFERENCENEGATIVE mg/dLBilirubin Urine COLOR INTERFERENCENEGATIVEKetones UrineCOLOR INTERFERENCENEGATIVE mg/dLBlood UrineCOLOR INTERFERENCENEGATIVENitrite UrineCOLOR INTERFERENCENEGATIVE Urobilinogen UrineCOLOR INTERFERENCE0.2-1.0 EU/dLLeukocyte Esterase UrineCOLOR INTERFERENCENEGATIVEWBC Ollpz28-63VLMR SEEN #/HPFRBC Urine2-50-2 #/HPFBacteria UrineSMALLNONE SEEN #/HPFMucus UrineTRACENONE SEENSquamous Epithelial Cell Urine MODERATENONE/RARE #/LPFCrystals Seen?None SeenNone Seen #/HPFCast Seen?SEENNONE SEEN #/LPFHyaline Casts UrineRAREUrine Culture IndicatedALREADY ORDERED Performing Lab:see noteML - [facility] LBUrine Culture, Routine Reviewed date:09/08/2024 09:03:21 PM Interpretation: Performing Lab: Notes/Report: [facility] ,Urine Culture, RoutineSee Below For Report Urine Culture, Routine Organism: Gram negative martin : O:ESCCOL Isolated O:GNR Isolated Organism: 1.1 Antibiotic Interpretation AIDEN Status Urine Culture, Routine*ABNORMAL* Urine Culture, Routine Organism: Gram negative martin : O:ESCCOL Isolated O:GNR Isolated Organism: 1.1 Antibiotic Interpretation AIDEN Status Urine Culture, Sgwkkfx24,000-25,000 colony forming units per mL Urine Culture, Routine Organism: Gram negative martin : O:ESCCOL Isolated O:GNR Isolated Organism: 1.1 Antibiotic Interpretation AIDEN Status Urine Culture, RoutineGram negative martin Urine Culture, Routine Organism: Gram negative martin : O:ESCCOL Isolated O:GNR Isolated Organism: 1.1 Antibiotic Interpretation AIDEN Status Urine Culture, RoutineOrganism: Escherichia coli : Urine Culture, Routine Organism: Gram negative martin : O:ESCCOL Isolated O:GNR Isolated Organism: 1.1 Antibiotic Interpretation AIDEN Status Urine Culture, Routine*ABNORMAL* Urine Culture, Routine Organism: Gram negative martin : O:ESCCOL Isolated O:GNR Isolated Organism: 1.1 Antibiotic Interpretation AIDEN Status Urine Culture, RoutineIdentified by an automated biochemical system. Urine Culture, Routine Organism: Gram negative martin : O:ESCCOL Isolated O:GNR Isolated Organism: 1.1 Antibiotic Interpretation AIDEN Status Urine Culture, RoutineMulti-Drug Resistant Organism Urine Culture, Routine Organism: Gram negative martin : O:ESCCOL Isolated O:GNR Isolated Organism: 1.1 Antibiotic Interpretation AIDEN Status Urine Culture, RoutineSusceptibility profile is consistent with a probable Urine Culture, Routine Organism: Gram negative martin : O:ESCCOL Isolated O:GNR Isolated Organism: 1.1 Antibiotic Interpretation AIDEN Status Urine Culture, RoutineESBL. Urine Culture, Routine Organism: Gram negative martin : O:ESCCOL Isolated O:GNR Isolated Organism: 1.1 Antibiotic Interpretation AIDEN Status Urine Culture, Vojbnby69,000-25,000 colony forming units per mL Urine Culture, Routine Organism: Gram negative martin : O:ESCCOL Isolated O:GNR Isolated Organism: 1.1 Antibiotic Interpretation AIDEN Status Urine Culture, RoutineEscherichia coli Urine Culture, Routine Organism: Gram negative martin : O:ESCCOL Isolated O:GNR Isolated Organism: 1.1 Antibiotic Interpretation AIDEN Status Urine Culture, RoutineSee Below For Report Urine Culture, Routine Organism: Gram negative martin : O:ESCCOL Isolated O:GNR Isolated Organism: 1.1 Antibiotic Interpretation AIDEN Status Urine Culture, RoutineSee Below For Report Urine Culture, Routine Organism: Gram negative martin : O:ESCCOL Isolated O:GNR Isolated Organism: 1.1 Antibiotic Interpretation AIDEN Status Urine Culture, RoutinePerformed at: - [facility] Urine [facility], Routine Organism: Gram negative martin : O:ESCCOL Isolated O:GNR Isolated Organism: 1.1 Antibiotic Interpretation AIDEN Status Urine Culture, [address] [place], [place] [id number] Urine Culture, Routine Organism: Gram negative martin : O:ESCCOL Isolated O:GNR Isolated Organism: 1.1 Antibiotic Interpretation AIDEN Status Urine Culture, RoutineLab Director: Ashok Benson PhD, Phone: [phone] Urine Culture, Routine Organism: Gram negative martin : O:ESCCOL Isolated O:GNR Isolated Organism: 1.1 Antibiotic Interpretation AIDEN Status Urine Culture, RoutineSee Below For Report Urine Culture, Routine Organism: Gram negative martin : O:ESCCOL Isolated O:GNR Isolated Organism: 1.1 Antibiotic Interpretation AIDEN Status Urine Culture, RoutineAMOXICILLIN/CLAVULANIC ACID S F Urine Culture, Routine Organism: Gram negative martin : O:ESCCOL Isolated O:GNR Isolated Organism: 1.1 Antibiotic Interpretation AIDEN Status Urine Culture, RoutineAmpicillin R F Urine Culture, Routine Organism: Gram negative martin : O:ESCCOL Isolated O:GNR Isolated Organism: 1.1 Antibiotic Interpretation AIDEN Status Urine Culture, RoutineCefazolin R F Urine Culture, Routine Organism: Gram negative martin : O:ESCCOL Isolated O:GNR Isolated Organism: 1.1 Antibiotic Interpretation AIDEN Status Urine Culture, RoutineCefepime R F Urine Culture, Routine Organism: Gram negative martin : O:ESCCOL Isolated O:GNR Isolated Organism: 1.1 Antibiotic Interpretation AIDEN Status Urine Culture, RoutineCeftriaxone R F Urine Culture, Routine Organism: Gram negative martin : O:ESCCOL Isolated O:GNR Isolated Organism: 1.1 Antibiotic Interpretation AIDEN Status Urine Culture, RoutineCefuroxime R F Urine Culture, Routine Organism: Gram negative martin : O:ESCCOL Isolated O:GNR Isolated Organism: 1.1 Antibiotic Interpretation AIDEN Status Urine Culture, RoutineCiprofloxacin R F Urine Culture, Routine Organism: Gram negative martin : O:ESCCOL Isolated O:GNR Isolated Organism: 1.1 Antibiotic Interpretation AIDEN Status Urine Culture, RoutineErtapenem S F Urine Culture, Routine Organism: Gram negative martin : O:ESCCOL Isolated O:GNR Isolated Organism: 1.1 Antibiotic Interpretation AIDEN Status Urine Culture, RoutineGentamicin R F Urine Culture, Routine Organism: Gram negative martin : O:ESCCOL Isolated O:GNR Isolated Organism: 1.1 Antibiotic Interpretation AIDEN Status Urine Culture, RoutineImipenem S F Urine Culture, Routine Organism: Gram negative martin : O:ESCCOL Isolated O:GNR Isolated Organism: 1.1 Antibiotic Interpretation AIDEN Status Urine Culture, RoutineLevofloxacin R F Urine Culture, Routine Organism: Gram negative martin : O:ESCCOL Isolated O:GNR Isolated Organism: 1.1 Antibiotic Interpretation AIDEN Status Urine Culture, RoutineMeropenem S F Urine Culture, Routine Organism: Gram negative martin : O:ESCCOL Isolated O:GNR Isolated Organism: 1.1 Antibiotic Interpretation AIDEN Status Urine Culture, RoutineNitrofurantoin S F Urine Culture, Routine Organism: Gram negative martin : O:ESCCOL Isolated O:GNR Isolated Organism: 1.1 Antibiotic Interpretation AIDEN Status Urine Culture, RoutineTetracycline S F Urine Culture, Routine Organism: Gram negative martin : O:ESCCOL Isolated O:GNR Isolated Organism: 1.1 Antibiotic Interpretation AIDEN Status Urine Culture, RoutineTobramycin I F Urine Culture, Routine Organism: Gram negative martin : O:ESCCOL Isolated O:GNR Isolated Organism: 1.1 Antibiotic Interpretation AIDEN Status Urine Culture, RoutineTrimethoprim/Sulfamethoxazole R F Urine Culture, Routine Organism: Gram negative martin : O:ESCCOL Isolated O:GNR Isolated Organism: 1.1 Antibiotic Interpretation AIDEN Status Urine Culture, RoutinePiperacillin/Tazobactam S F Urine Culture, Routine Organism: Gram negative martin : O:ESCCOL Isolated O:GNR Isolated Organism: 1.1 Antibiotic Interpretation AIDEN Status Performing Lab:see note LC - [facility] LB SEE REPORT - Manager Medical Writing Id information not found for OBX-specific ice sculptor legend CBC AUTO DIFF Reviewed date:09/20/2024 05:06:04 PM Interpretation: Performing Lab: Notes/Report: [facility] ,White Blood Count15.34.0-11.0 10 3/uLRed Blood Count3.334.20-5.40 10 6/uL Ujvuufhtaj95.212.0-16.0 g/fPErygnwsmzt59.836.0-48.0 %Mean Corpuscular Unwyra74.5 81.0-99.0 fLMean Corpuscular Wwxanamdir21.626.7-34.0 pgMean Corpuscular HGB Conc 33.129.9-35.2 g/dLRed Cell Distribution Width15.211.0-15.0 %Platelet Anmor024 150-450 10 3/uLMean Platelet Volume8.99.5-13.5 fLNeutrophils Percent Auto87.0 43.0-75.0 %Lymphocytes Percent Auto7.020.5-60.0 %Monocytes Percent Auto4.51.7- 12.0 %Eosinophils Percent Auto0.70.9-7.0 %Basophils Percent Auto0.20.2-2.0 % Immature Granulocytes Pct Auto0.60.0-0.5 %Neutrophils Absolute Auto13.31.4-6.5 10 3/uLLymphocytes Absolute Auto1.11.2-3.8 10 3/uLMonocytes Absolute Auto0.70.3- 0.8 10 3/uLEosinophils Absolute Auto0.10.0-0.7 10 3/uLBasophils Absolute Auto0.0 0.0-0.1 10 3/uLImmature Granulocytes Abs Auto0.090.00-0.03 10 3/uLPerforming Lab:see noteML - [facility] LBINFLUENZA A AND B AG Reviewed date:09/20/2024 05:06:04 PM Interpretation: Performing Lab: Notes/Report: [facility] ,Influenza Virus A AntigenNegative Negative for Flu A protein antigen. Infection due to Flu A cannot be ruled out. Flu A antigen in the sample may be below the detection limit of the test. Influenza Virus B AntigenNegative Negative for Flu B protein antigen. Infection due to Flu B cannot be ruled out. Flu B antigen in the sample may be below the detection limit of the test. Performing Lab:see note - [facility] LBLACTATE or LACTIC ACID Reviewed date:09/20/2024 05:06:04 PM Interpretation: Performing Lab: Notes/Report: [facility] ,Lactate/Lactic Acid1.70.4-2.0 mmol/LPerforming Lab:see note - [facility] LBPROF 14(COMP METB) Reviewed date:09/20/2024 05:06:04 PM Interpretation: Performing Lab: Notes/Report: [facility] ,Sgihld140486-813 mmol/LPotassium4.73.5-5.1 mmol/MCifpecrv2381-940 mmol/LCarbon Mnzpyjl96.421.0-32.0 mmol/LAnion Gap15.4Mjqhffy02672-205 mg/dLBlood Urea Ncjibuhp00.07.0-18.0 mg/dLCreatinine2.080.55-1.02 mg/dLEstimated GFR ( Lcewjfl98>=60 mL/min/1.73m 2Estimated GFR (Non- Ame23>=60 mL/min/1.73m 2 BUN Creatinine Ratio20.1Zvqizpm0.08.5-10.1 mg/dLBilirubin Total0.80.2-1.0 mg/dL Aspartate Amino Iihqdkznulo8648-36 U/LAlanine Wwwnkoaiurgnphtv0547-23 U/L Alkaline Dcdtjsfieto7361-366 U/LTotal Protein7.06.4-8.2 g/dLAlbumin Level3.13.4- 5.0 g/dLGlobulin3.9Albumin Globulin Ratio0.8Performing Lab:see note - [facility] LBUA (CLEAN or CATCH) URBAN PLANNING TEACHER or MICRO IF IND. Reviewed date:09/20/2024 05:06:04 PM Interpretation: Performing Lab: Notes/Report: [facility] ,Color UrineYELLOWYELLOWClarity UrineCLEARCLEARSpecific [place] Urine1.020 1.005-1.025pH Urine5.55.0-9.0Protein Cqqnz807YOK/TRACE mg/dLGlucose Urine UA NEGATIVENEGATIVE mg/dLBilirubin UrineNEGATIVENEGATIVEKetones UrineNEGATIVE NEGATIVE mg/dLBlood UrineNEGATIVENEGATIVENitrite UrineNEGATIVENEGATIVE Urobilinogen Urine0.20.2-1.0 EU/dLLeukocyte Esterase UrineNEGATIVENEGATIVEUrine Microscopic IndicatedYESPerforming Lab:see noteML - [facility] LB URINE MICROSCOPIC ONLY Reviewed date:09/20/2024 05:06:04 PM Interpretation: Performing Lab: Notes/Report: [facility] ,WBC UrineNONE SEENNONE SEEN #/HPFRBC Urine0-20-2 #/HPFBacteria UrineTRACENONE SEEN #/HPFMucus UrineNONE SEENNONE SEENSquamous Epithelial Cell UrineMODERATE NONE/RARE #/LPFCrystals Seen?None SeenNone Seen #/HPFCast Seen?NONE SEENNONE SEEN #/LPFUrine Culture IndicatedNOPerforming Lab:see noteML - [facility] LBTroponin I High Sensitivity Reviewed date:09/20/2024 05:06:04 PM Interpretation: Performing Lab: Notes/Report: [facility] ,Troponin I High Jsikbwdqrul33.64.0-51.3 pg/mL CUT-OFF POINTS HAVE BEEN ESTABLISHED BASED [...] WITH OTHER DIAGNOSTIC AND CLINICAL INFORMATION. Performing Lab:see noteML - [facility] LBTSH W/ REFLEX FT4 Reviewed date:09/20/2024 05:06:04 PM Interpretation: Performing Lab: Notes/Report: [facility] ,TSH W/ REFLEX FT41.2970.358-3.740 uIU/mLPerforming Lab:see note - [facility] AYASLV-UpK-4 Ag* Reviewed date:09/20/2024 05:06:04 PM Interpretation: Performing Lab: Notes/Report: [facility] ,SARS-CoV-2 AgNEGATIVENEGATIVE This test has not been FDA cleared [...] terminated or authorization is revoked sooner. 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 Signed By: 09/22/24 0658 DD/ 1521 TD/TT: Collar Separator:CT abdomen pelvis wo con Reviewed date:09/20/2024 05:06:04 PM Interpretation: Performing Lab: Notes/Report: Source Facility: [place] [address] CT Scan Report Signed Patient: KYLAH ROBIN MR#: [id number] : 1945 Acct:[id number] Age/Sex: 78 / F ADM Date: 09/20/24 Loc: ER Attending Dr: Ordering Physician: Luis Lugo Date of Service: 09/20/24 Procedure(s): CT abdomen pelvis wo con Accession Number(s): [id number] cc: Dhruv Rubi M.D. [place] [address] Patient Name: KYLAH ROBIN MRN: [facility]:[id number] date: 1945 Sex: F Assigned Patient Location: ER Current Patient Location: ER Accession/Order Number: [id number] Exam Date: 09/20/2024 15:52 Report Date: 09/20/2024 [...] M.D. Signed By: 09/20/241622 DD/ 19 TD/TT: Collar Separator:RENAL FUNCTION PANEL Reviewed date:01/05/2025 07:25:49 PM Interpretation: Performing Lab: Notes/Report: [facility] ,Pbejlp311905-060 mmol/LPotassium4.73.5-5.1 mmol/DThfhpcga26585-099 mmol/LCarbon Krpmlnh21.421.0-32.0 mmol/LAnion Gap16.7Eawwefd96679-340 mg/dLBlood Urea Tqemnogm46.07.0-18.0 mg/dLCreatinine1.890.55-1.02 mg/dLEstimated GFR ( Enepins76>=60 mL/min/1.73m 2Estimated GFR (Non- Ame26>=60 mL/min/1.73m 2 BUN Creatinine Ratio18.7Efxystp7.28.5-10.1 mg/dLPhosphorus3.82.6-4.7 mg/dL Albumin Level3.33.4-5.0 g/dLPerforming Lab:see noteML - [facility] LB URIC ACID SERUM Reviewed date:01/05/2025 07:25:49 PM Interpretation: Performing Lab: Notes/Report: [facility] ,Uric Acid3.92.6-6.0 mg/dLPerforming Lab:see noteML - [facility] LB URINE T PROTEIN CREAT RATIO Reviewed date:01/05/2025 07:25:49 PM Interpretation: Performing Lab: Notes/Report: [facility] ,Total Protein Urine Ncdmno222.9<=11.9 mg/dLCreatinine Urine Yngcfn833.1820.00- 300.00 mg/dLProtein Creatinine Ratio Urine0.69Performing Lab:see noteML - [facility] LBVITAMIN D 25 [place] Reviewed date:01/05/2025 07:25:49 PM Interpretation: Performing Lab: Notes/Report: [facility] ,Vitamin D30.9 <20 ng/mL Vit D deficient 20-<30 ng/mL Vit D insufficient 30-100 ng/mL Vit D sufficient >100 ng/mL Potential Toxicity Performing Lab:[facility]Green [facility] ([facility]) Reviewed date:01/05/2025 07:25:49 PM Interpretation: Performing Lab: Notes/Report: [facility] ,White Blood Count6.04.0-11.0 10 3/uLRed Blood Count3.354.20-5.40 10 6/uL Vrrprpvrhq15.412.0-16.0 g/gDStobucadvv40.536.0-48.0 %Mean Corpuscular Tiobzu41.0 81.0-99.0 fLMean Corpuscular Hhzowqtidy28.026.7-34.0 pgMean Corpuscular HGB Conc 33.029.9-35.2 g/dLRed Cell Distribution Width15.111.0-15.0 %Platelet Oodxs813 150-450 10 3/uLMean Platelet Volume9.49.5-13.5 fLPerforming Lab:[facility]McC[facility] LBPTH, Intact Reviewed date:01/06/2025 08:09:23 PM Interpretation: Performing Lab: Notes/Report: [facility] ,PTH, Hipkyh6229-53 pg/mL Performed at: - [facility] [address] [id number] Mortising Machine Operator: Ashok Benson PhD, Phone: [phone] Performing Lab:see note - [facility] LBBNP Reviewed date:04/22/2025 06:54:09 PM Interpretation: Performing Lab: Notes/Report: [facility] ,NT Pro B Type Natriuretic Vrdt5296.0<=1800.0 pg/mLPerforming Lab:see noteMcC[facility] LBCBC AUTO DIFF Reviewed date:04/22/2025 06:54:09 PM Interpretation: Performing Lab: Notes/Report: [facility] ,White Blood Count9.34.0-11.0 10 3/uLRed Blood Count3.464.20-5.40 10 6/uL Gecqobistv05.612.0-16.0 g/aRJvgbbqlwtf49.436.0-48.0 %Mean Corpuscular Udfozi89.8 81.0-99.0 fLMean Corpuscular Hubzdyvaum88.626.7-34.0 pgMean Corpuscular HGB Conc 33.829.9-35.2 g/dLRed Cell Distribution Width15.411.0-15.0 %Platelet Kwlll613 150-450 10 3/uLMean Platelet Volume9.49.5-13.5 fLNeutrophils Percent Auto63.4 43.0-75.0 %Lymphocytes Percent Auto21.320.5-60.0 %Monocytes Percent Auto13.71.7- 12.0 %Eosinophils Percent Auto1.10.9-7.0 %Basophils Percent Auto0.30.2-2.0 % Immature Granulocytes Pct Auto0.20.0-0.5 %Neutrophils Absolute Auto5.91.4-6.5 10 3/uLLymphocytes Absolute Auto2.01.2-3.8 10 3/uLMonocytes Absolute Auto1.30.3-0.8 10 3/uLEosinophils Absolute Auto0.10.0-0.7 10 3/uLBasophils Absolute Auto0.00.0- 0.1 10 3/uLImmature Granulocytes Abs Auto0.020.00-0.03 10 3/uLPerforming Lab:see noteML - [facility] LBPROF CHEM 8 (BAS METB) Reviewed date:04/22/2025 06:54:09 PM Interpretation: Performing Lab: Notes/Report: [facility] ,Shzoza184328-569 mmol/LPotassium3.53.5-5.1 mmol/HPyvxpvfg10645-649 mmol/LCarbon Nbufknj35.021.0-32.0 mmol/LAnion Gap17.9Gslykkg7685-270 mg/dLBlood Urea Nitrogen 43.07.0-18.0 mg/dLCreatinine1.920.55-1.02 mg/dLEstimated GFR ( Agvnhug03 >=60 mL/min/1.73m 2Estimated GFR (Non- Ame25>=60 mL/min/1.73m 2BUN Creatinine Ratio22.7Bqemtoz0.48.5-10.1 mg/dLPerforming Lab:see noteML - [facility] LBTroponin I High Sensitivity Reviewed date:04/22/2025 06:54:09 PM Interpretation: Performing Lab: Notes/Report: [facility] ,Troponin I High Zyziczcnrlk57.04.0-51.3 pg/mL CUT-OFF POINTS HAVE BEEN ESTABLISHED BASED [...] WITH OTHER DIAGNOSTIC AND CLINICAL INFORMATION. Performing Lab:see noteML - [facility] LBUA Micro, reflex to culture Reviewed date:04/22/2025 06:54:09 PM Interpretation: Performing Lab: Notes/Report: [facility] ,Color UrineLT. YELLOWYELLOWClarity UrineCLEARCLEARSpecific [place] Urine1.015 1.005-1.025pH Urine5.55.0-9.0Protein Fipxv50SZH/TRACE mg/dLGlucose Urine UA NEGATIVENEGATIVE mg/dLBilirubin UrineNEGATIVENEGATIVEKetones UrineNEGATIVE NEGATIVE mg/dLBlood UrineNEGATIVENEGATIVENitrite UrinePOSITIVENEGATIVE Urobilinogen Urine0.20.2-1.0 EU/dLLeukocyte Esterase UrineMODERATENEGATIVEWBC Ybnmm52-40FHJZ SEEN #/HPFRBC UrineNONE SEEN0-2 #/HPFBacteria UrineLARGENONE SEEN #/HPFMucus UrineNONE SEENNONE SEENSquamous Epithelial Cell UrineRARENONE/RARE #/LPFCrystals Seen?None SeenNone Seen #/HPFCast Seen?NONE SEENNONE SEEN #/LPF Urine Culture IndicatedYES-[facility]Performing Lab:see noteML - [facility] LBUrine Culture - [facility] Reviewed date:04/26/2025 08:14:27 PM Interpretation: Performing Lab: Notes/Report: [facility] ,Urine Culture - [facility]MCSee Below For Report Urine Culture - [facility] Testing performed at [facility] O:ECESBL Isolated Urine Culture - [facility] [place] Count Organism: 1.1 Antibiotic Interpretation AIDEN Status Urine Culture - [id number] [place] [address] Urine Culture - [facility] Testing performed at [facility] O:ECESBL Isolated Urine Culture - [facility] [place] Count Organism: 1.1 Antibiotic Interpretation AIDEN Status Urine Culture - FRMCSee Below For Report Urine Culture - [facility] Testing performed at [facility] O:ECESBL Isolated Urine Culture - [facility] [place] Count Organism: 1.1 Antibiotic Interpretation AIDEN Status Urine Culture - FRMCSee Below For Report Urine Culture - [facility] Testing performed at [facility] O:ECESBL Isolated Urine Culture - [facility] [place] Count Organism: 1.1 Antibiotic Interpretation AIDEN Status Urine Culture - [facility]>100,000 Urine Culture - [facility] Testing performed at [facility] O:ECESBL Isolated Urine Culture - [facility] [place] Count Organism: 1.1 Antibiotic Interpretation AIDEN Status Urine Culture - FRMCSee Below For Report Urine Culture - [facility] Testing performed at [facility] O:ECESBL Isolated Urine Culture - [facility] [place] Count Organism: 1.1 Antibiotic Interpretation AIDEN Status Urine Culture - FRMCAmikacin S F Urine Culture - [facility] Testing performed at [facility] O:ECESBL Isolated Urine Culture - [facility] [place] Count Organism: 1.1 Antibiotic Interpretation AIDEN Status Urine Culture - FRMCAmoxicillin/Clavulanate S F Urine Culture - [facility] Testing performed at [facility] O:ECESBL Isolated Urine Culture - [facility] [place] Count Organism: 1.1 Antibiotic Interpretation AIDEN Status Urine Culture - FRMCAmpicillin R F Urine Culture - [facility] Testing performed at [facility] O:ECESBL Isolated Urine Culture - [facility] [place] Count Organism: 1.1 Antibiotic Interpretation AIDEN Status Urine Culture - FRMCAztreonam R F Urine Culture - [facility] Testing performed at [facility] O:ECESBL Isolated Urine Culture - [facility] [place] Count Organism: 1.1 Antibiotic Interpretation AIDEN Status Urine Culture - FRMCCeftazidime R F Urine Culture - [facility] Testing performed at [facility] O:ECESBL Isolated Urine Culture - [facility] [place] Count Organism: 1.1 Antibiotic Interpretation AIDEN Status Urine Culture - FRMCCeftazidime/Avibactam S F Urine Culture - [facility] Testing performed at [facility] O:ECESBL Isolated Urine Culture - [facility] [place] Count Organism: 1.1 Antibiotic Interpretation AIDEN Status Urine Culture - FRMCCeftolozane/Tazobactam S F Urine Culture - [facility] Testing performed at [facility] O:ECESBL Isolated Urine Culture - [facility] [place] Count Organism: 1.1 Antibiotic Interpretation AIDEN Status Urine Culture - FRMCCiprofloxacin R F Urine Culture - [facility] Testing performed at [facility] O:ECESBL Isolated Urine Culture - [facility] [place] Count Organism: 1.1 Antibiotic Interpretation AIDEN Status Urine Culture - FRMCErtapenem S F Urine Culture - [facility] Testing performed at [facility] O:ECESBL Isolated Urine Culture - [facility] [place] Count Organism: 1.1 Antibiotic Interpretation AIDEN Status Urine Culture - FRMCGentamicin R F Urine Culture - [facility] Testing performed at [facility] O:ECESBL Isolated Urine Culture - [facility] [place] Count Organism: 1.1 Antibiotic Interpretation AIDEN Status Urine Culture - FRMCLevofloxacin R F Urine Culture - [facility] Testing performed at [facility] O:ECESBL Isolated Urine Culture - [facility] [place] Count Organism: 1.1 Antibiotic Interpretation AIDEN Status Urine Culture - FRMCMeropenem S F Urine Culture - [facility] Testing performed at [facility] O:ECESBL Isolated Urine Culture - [facility] [place] Count Organism: 1.1 Antibiotic Interpretation AIDEN Status Urine Culture - FRMCMeropenem/Vaborbactam S F Urine Culture - [facility] Testing performed at [facility] O:ECESBL Isolated Urine Culture - [facility] [place] Count Organism: 1.1 Antibiotic Interpretation AIDEN Status Urine Culture - FRMCNitrofurantoin S F Urine Culture - [facility] Testing performed at [facility] O:ECESBL Isolated Urine Culture - [facility] [place] Count Organism: 1.1 Antibiotic Interpretation AIDEN Status Urine Culture - FRMCTetracycline S F Urine Culture - [facility] Testing performed at [facility] O:ECESBL Isolated Urine Culture - [facility] [place] Count Organism: 1.1 Antibiotic Interpretation AIDEN Status Urine Culture - FRMCTigecycline S F Urine Culture - [facility] Testing performed at [facility] O:ECESBL Isolated Urine Culture - [facility] [place] Count Organism: 1.1 Antibiotic Interpretation AIDEN Status Urine Culture - FRMCTobramycin R F Urine Culture - [facility] Testing performed at [facility] O:ECESBL Isolated Urine Culture - [facility] [place] Count Organism: 1.1 Antibiotic Interpretation AIDEN Status Urine Culture - FRMCAmpicillin/Sulbactam S F Urine Culture - [facility] Testing performed at [facility] O:ECESBL Isolated Urine Culture - [facility] [place] Count Organism: 1.1 Antibiotic Interpretation AIDEN Status Urine Culture - FRMCCefazolin R F Urine Culture - [facility] Testing performed at [facility] O:ECESBL Isolated Urine Culture - [facility] [place] Count Organism: 1.1 Antibiotic Interpretation AIDEN Status Urine Culture - FRMCCefepime R F Urine Culture - [facility] Testing performed at [facility] O:ECESBL Isolated Urine Culture - [facility] [place] Count Organism: 1.1 Antibiotic Interpretation AIDEN Status Urine Culture - FRMCCeftriaxone R F Urine Culture - [facility] Testing performed at [facility] O:ECESBL Isolated Urine Culture - [facility] [place] Count Organism: 1.1 Antibiotic Interpretation AIDEN Status Urine Culture - FRMCCefuroxime R F Urine Culture - [facility] Testing performed at [facility] O:ECESBL Isolated Urine Culture - [facility] [place] Count Organism: 1.1 Antibiotic Interpretation AIDEN Status Urine Culture - FRMCPiperacillin/Tazobactam S F Urine Culture - [facility] Testing performed at [facility] O:ECESBL Isolated Urine Culture - [facility] [place] Count Organism: 1.1 Antibiotic Interpretation AIDEN Status Urine Culture - FRMCTrimethoprim/Sulfa R F Urine Culture - [facility] Testing performed at [facility] O:ECESBL Isolated Urine Culture - [facility] [place] Count Organism: 1.1 Antibiotic Interpretation AIDEN Status Performing Lab:see note ML - [facility] LB SEE REPORT - Manager Medical Writing Id information not found for OBX-specific ice sculptor legend XR chest 1V Reviewed date:04/22/2025 06:54:09 PM Interpretation: Performing Lab: Notes/Report: Source Facility: [place] [address] [place] [address] XRay Report Signed Patient: KYLAH ROBIN MR#: [id number] : 1945 Acct:[id number] Age/Sex: 79 / F ADM Date: 04/21/25 Loc: ER Attending Dr: Ordering Physician: Dmitriy Lynne Date of Service: 04/21/25 Procedure(s): XR chest 1V Accession Number(s): [id number] cc: Dmitriy Lynne; Dhruv Rubi M.D. [address] [address] Patient Name: KYLAH ROBIN MRN: [id number] date: 1945 Sex: F Assigned Patient Location: ER Current Patient Location: ER Accession/Order Number: [id number] Exam Date: 04/21/2025 21:57 Report Date: 04/21/2025 [...] Grey M.D. 04/21/2025 9:58 PM Dictation Location: [place] [address] Electronically authenticated by: [id number] Y Date: 04/21/2025 21:58 Dictated By: Juan Grey M.D. Signed By: 04/21/252199 DD/ 57 TD/TT: Collar Separator:Urine Culture - FR Reviewed date:05/28/2025 01:00:41 PM Interpretation: Performing Lab: Notes/Report: [facility] ,Urine Culture - FRMCSee Below For Report Urine Culture - FR Testing performed at [facility] O:ECESBL Isolated Urine Culture - FR Spencer Count Organism: 1.1 Antibiotic Interpretation AIDEN Status Urine Culture - [id number] [place] [address] Urine Culture - [facility] Testing performed at [facility] O:ECESBL Isolated Urine Culture - [facility] Spencer Count Organism: 1.1 Antibiotic Interpretation AIDEN Status Urine Culture - FRMCSee Below For Report Urine Culture - [facility] Testing performed at [facility] O:ECESBL Isolated Urine Culture - [facility] [place] Count Organism: 1.1 Antibiotic Interpretation AIDEN Status Urine Culture - FRMCSee Below For Report Urine Culture - [facility] Testing performed at [facility] O:ECESBL Isolated Urine Culture - [facility] [place] Count Organism: 1.1 Antibiotic Interpretation AIDEN Status Urine Culture - [facility]>100,000 Urine Culture - [facility] Testing performed at [facility] O:ECESBL Isolated Urine Culture - [facility] [place] Count Organism: 1.1 Antibiotic Interpretation AIDEN Status Urine Culture - FRMCSee Below For Report Urine Culture - [facility] Testing performed at [facility] O:ECESBL Isolated Urine Culture - [facility] [place] Count Organism: 1.1 Antibiotic Interpretation AIDEN Status Urine Culture - FRMCAmikacin S F Urine Culture - [facility] Testing performed at [facility] O:ECESBL Isolated Urine Culture - [facility] [place] Count Organism: 1.1 Antibiotic Interpretation AIDEN Status Urine Culture - FRMCAmoxicillin/Clavulanate S F Urine Culture - [facility] Testing performed at [facility] O:ECESBL Isolated Urine Culture - [facility] [place] Count Organism: 1.1 Antibiotic Interpretation AIDEN Status Urine Culture - FRMCAmpicillin R F Urine Culture - [facility] Testing performed at [facility] O:ECESBL Isolated Urine Culture - [facility] [place] Count Organism: 1.1 Antibiotic Interpretation AIDEN Status Urine Culture - FRMCAztreonam R F Urine Culture - [facility] Testing performed at [facility] O:ECESBL Isolated Urine Culture - [facility] Spencer Count Organism: 1.1 Antibiotic Interpretation AIDEN Status Urine Culture - FRMCCeftazidime R F Urine Culture - [facility] Testing performed at [facility] O:ECESBL Isolated Urine Culture - [facility] [place] Count Organism: 1.1 Antibiotic Interpretation AIDEN Status Urine Culture - FRMCCeftazidime/Avibactam S F Urine Culture - [facility] Testing performed at [facility] O:ECESBL Isolated Urine Culture - [facility] [place] Count Organism: 1.1 Antibiotic Interpretation AIDEN Status Urine Culture - FRMCCeftolozane/Tazobactam S F Urine Culture - [facility] Testing performed at [facility] O:ECESBL Isolated Urine Culture - [facility] [place] Count Organism: 1.1 Antibiotic Interpretation AIDEN Status Urine Culture - FRMCCiprofloxacin R F Urine Culture - [facility] Testing performed at [facility] O:ECESBL Isolated Urine Culture - [facility] [place] Count Organism: 1.1 Antibiotic Interpretation AIDEN Status Urine Culture - FRMCErtapenem S F Urine Culture - [facility] Testing performed at [facility] O:ECESBL Isolated Urine Culture - [facility] Spencer Count Organism: 1.1 Antibiotic Interpretation AIDEN Status Urine Culture - FRMCGentamicin R F Urine Culture - [facility] Testing performed at [facility] O:ECESBL Isolated Urine Culture - [facility] Spencer Count Organism: 1.1 Antibiotic Interpretation AIDEN Status Urine Culture - FRMCLevofloxacin R F Urine Culture - [facility] Testing performed at [facility] O:ECESBL Isolated Urine Culture - [facility] [place] Count Organism: 1.1 Antibiotic Interpretation AIDEN Status Urine Culture - FRMCMeropenem S F Urine Culture - [facility] Testing performed at [facility] O:ECESBL Isolated Urine Culture - [facility] Count Organism: 1.1 Antibiotic Interpretation AIDEN Status Urine Culture - FR[facility]CMeropenem/Vaborbactam S F Urine Culture - [facility] Testing performed at [facility] O:ECESBL Isolated Urine Culture - [facility] Count Organism: 1.1 Antibiotic Interpretation AIDEN Status Urine Culture - [facility]MCNitrofurantoin S F Urine Culture - [facility] Testing performed at [facility] O:ECESBL Isolated Urine Culture - [facility] Count Organism: 1.1 Antibiotic Interpretation AIDEN Status Urine Culture - [facility]CTetracycline S F Urine Culture - [facility] Testing performed at [facility] O:ECESBL Isolated Urine Culture - [facility] Count Organism: 1.1 Antibiotic Interpretation AIDEN Status Urine Culture - [facility]CTigecycline S F Urine Culture - [facility] Testing performed at [facility] O:ECESBL Isolated Urine Culture - [facility] Count Organism: 1.1 Antibiotic Interpretation AIDEN Status Urine Culture - [facility]CTobramycin R F Urine Culture - [facility] Testing performed at [facility] O:ECESBL Isolated Urine Culture - [facility] Count Organism: 1.1 Antibiotic Interpretation AIDEN Status Urine Culture - FR[facility]CAmpicillin/Sulbactam S F Urine Culture - [facility] Testing performed at [facility] O:ECESBL Isolated Urine Culture - [facility] Count Organism: 1.1 Antibiotic Interpretation AIDEN Status Urine Culture - [facility]CCefazolin R F Urine Culture - [facility] Testing performed at [facility] O:ECESBL Isolated Urine Culture - [facility] Count Organism: 1.1 Antibiotic Interpretation AIDEN Status Urine Culture - [facility]CCefepime R F Urine Culture - [facility] Testing performed at [facility] O:ECESBL Isolated Urine Culture - [facility] Count Organism: 1.1 Antibiotic Interpretation AIDEN Status Urine Culture - FR[facility]CCeftriaxone R F Urine Culture - [facility] Testing performed at [facility] O:ECESBL Isolated Urine Culture - [facility] Count Organism: 1.1 Antibiotic Interpretation AIDEN Status Urine Culture - [facility]CCefuroxime R F Urine Culture - [facility] Testing performed at [facility] O:ECESBL Isolated Urine Culture - [facility] Count Organism: 1.1 Antibiotic Interpretation AIDEN Status Urine Culture - FRMCPiperacillin/Tazobactam S F Urine Culture - [facility] Testing performed at [facility] O:ECESBL Isolated Urine Culture - [facility] Count Organism: 1.1 Antibiotic Interpretation AIDEN Status Urine Culture - FRMCTrimethoprim/Sulfa R F Urine Culture - [facility] Testing performed at [facility] O:ECESBL Isolated Urine Culture - [facility] Count Organism: 1.1 Antibiotic Interpretation AIDEN Status Performing Lab:see note ML - [facility] LB SEE REPORT - Manager Medical Writing Id information not found for OBX-specific 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 Ordering Physician: Carlie Prescott M.D. Date of Service: 06/16/25 Procedure(s): CA echo doppler complete Accession Number(s): [id number] cc: Carlie Prescott M.D.; Dhruv Rubi M.D. Patient Name: KYLAH ROBIN MR#: [id number] : 1945 Exam Date: 06/16/2025 Ordering Doctor: [...] Dictated By: Carlie Prescott M.D. Signed By: 06/17/2546 DD/ TD/TT: Collar Separator:IRON AND TIBC Reviewed date:06/29/2025 12:48:24 PM Interpretation: Performing Lab: Notes/Report: [facility] ,Iron47.050.0-170.0 ug/dLTotal Iron Binding Bctmiinh137.0250.0-450.0 ug/dL Percent Iron Tqpkhtwmis43.4Performing Lab:see noteMcCull[facility] LB RENAL FUNCTION PANEL Reviewed date:06/29/2025 12:48:24 PM Interpretation: Performing Lab: Notes/Report: [facility] ,Aptbjf505752-247 mmol/LPotassium4.13.5-5.1 mmol/KOjdrcacy92254-505 mmol/LCarbon Dscqntn64.421.0-32.0 mmol/LAnion Gap13.1Frhgpby77795-127 mg/dLBlood Urea Fzdewjxb17.07.0-18.0 mg/dLCreatinine2.170.55-1.02 mg/dLEstimated GFR ( Kpkiuil02>=60 mL/min/1.73m 2Estimated GFR (Non- Ame22>=60 mL/min/1.73m 2 BUN Creatinine Ratio17.5Zgosszd4.58.5-10.1 mg/dLPhosphorus4.12.6-4.7 mg/dL Albumin Level3.63.4-5.0 g/dLPerforming Lab:see noteMcCullough-[facility] LB URINE T PROTEIN CREAT RATIO Reviewed date:06/29/2025 12:48:24 PM Interpretation: Performing Lab: Notes/Report: [facility] ,Total Protein Urine Yekwph025.7<=11.9 mg/dLCreatinine Urine Eksmfv663.8720.00- 300.00 mg/dLProtein Creatinine Ratio Urine1.02Performing Lab:see noteMcCull[facility] LBPTH, Intact Reviewed date:06/30/2025 12:51:03 PM Interpretation: Performing Lab: Notes/Report: [facility] ,PTH, Qmignt5555-14 pg/mL Performed at: [facility] Lab[address] [id number] Mortising Machine Operator: Ashok Benson PhD, Phone: [phone] Performing Lab:see [facility]OD[facility]fre[facility] LBCBC AUTO DIFF Reviewed date:11/18/2024 10:07:51 PM Interpretation: Performing Lab: Notes/Report: [facility] ,White Blood Count6.94.0-11.0 10 3/uLRed Blood Count3.574.20-5.40 10 6/uL Ahsqvvumsk58.912.0-16.0 g/mAGpfhipbpbl45.736.0-48.0 %Mean Corpuscular Offzxl23.6 81.0-99.0 fLMean Corpuscular Nucioqhede31.526.7-34.0 pgMean Corpuscular HGB Conc 33.329.9-35.2 g/dLRed Cell Distribution Width15.111.0-15.0 %Platelet Jdssv983 150-450 10 3/uLMean Platelet Volume9.29.5-13.5 fLNeutrophils Percent Auto55.3 43.0-75.0 %Lymphocytes Percent Auto30.920.5-60.0 %Monocytes Percent Auto11.31.7- 12.0 %Eosinophils Percent Auto1.70.9-7.0 %Basophils Percent Auto0.40.2-2.0 % Immature Granulocytes Pct Auto0.40.0-0.5 %Neutrophils Absolute Auto3.81.4-6.5 10 3/uLLymphocytes Absolute Auto2.11.2-3.8 10 3/uLMonocytes Absolute Auto0.80.3- 0.8 10 3/uLEosinophils Absolute Auto0.10.0-0.7 10 3/uLBasophils Absolute Auto0.0 0.0-0.1 10 3/uLImmature Granulocytes Abs Auto0.030.00-0.03 10 3/uLPerforming Lab:see noteML - [facility] LBPROF CHEM 8 (BAS METB) Reviewed date:11/18/2024 10:07:51 PM Interpretation: Performing Lab: Notes/Report: [facility] ,Cynypj828339-248 mmol/LPotassium4.23.5-5.1 mmol/BAjbklriv03755-990 mmol/LCarbon Rjjnllw41.521.0-32.0 mmol/LAnion Gap14.2Yfkwrvh18623-475 mg/dLBlood Urea Flgjnefh14.07.0-18.0 mg/dLCreatinine1.940.55-1.02 mg/dLEstimated GFR ( Gqiyixg65>=60 mL/min/1.73m 2Estimated GFR (Non- Ame25>=60 mL/min/1.73m 2 BUN Creatinine Ratio20.3Wbnzwnz5.98.5-10.1 mg/dLPerforming Lab:see noteML - [facility] LBECG 12 lead Reviewed date:11/20/2024 06:53:57 AM Interpretation: Performing Lab: Notes/Report: Source Facility: [place] [address] Electrocardiograph Report Signed Patient: KYLAH ROBIN MR#: [id number] : 1945 Acct:[id number] Age/Sex: 78 / F ADM Date: 11/17/24 Loc: ER Attending Dr: Ordering Physician: Pee Prabhakar M.D. 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 Signed By: 11/20/24 0524 DD/ TD/TT: Collar Separator:KENAN tomosynthesis screening BI Reviewed date:12/22/2024 08:51:42 PM Interpretation: Performing Lab: Notes/Report: Source Facility: [facility] [place] [address] [address] Mammography Report Signed Patient: KYLAH ROBIN MR#: [id number] : 1945 Acct:[id number] Age/Sex: 79 / F ADM Date: 12/22/24 Loc: MAMMO Attending Dr: Dhruv Rubi M.D. Ordering Physician: Dhruv Rubi M.D. Results: Date of Service: 12/22/24 Follow Up: Procedure(s): MM tomosynthesis screening BI Accession Number(s): [id number] cc: Dhruv Rubi M.D. Patient Name: KYLAH ROBIN MR#: [id number] : 1945 Exam Date: 12/22/2024 Ordering Doctor: [...] cancer at age 61. LOCATION: [facility] BREAST COMPOSITION: There are scattered areas of [...] Signed By: 12/22/24 1602 DD/ 1601 TD/TT: Collar Separator:Troponin I High Sensitivity Reviewed date:12/31/2024 08:41:15 PM Interpretation: Performing Lab: Notes/Report: [facility] ,Troponin I High Ggyilxdmkcf59.54.0-51.3 pg/mL CUT-OFF POINTS HAVE BEEN ESTABLISHED BASED [...] WITH OTHER DIAGNOSTIC AND CLINICAL INFORMATION. Performing Lab:see noteML - [facility] LBXR chest 2V Reviewed date:12/31/2024 08:41:15 PM Interpretation: Performing Lab: Notes/Report: Source Facility: [place] [address] [place] [address] XRay Report Signed Patient: KYLAH ROBIN MR#: [id number] : 1945 Acct:[id number] Age/Sex: 79 / F ADM Date: 12/31/24 Loc: LAB Attending Dr: Dhruv Rubi M.D. Ordering Physician: Dhruv Rubi M.D. Date of Service: 12/31/24 Procedure(s): XR chest 2V Accession Number(s): [id number] cc: Dhruv Rubi M.D. [place] [address] Patient Name: KYLAH ROBIN MRN: [id number] date: 1945 Sex: F Assigned Patient Location: LAB Current Patient Location: LAB Accession/Order Number: [id number] Exam Date: 12/31/2024 12:38 Report Date: 12/31/2024 [...] Mariusz Hernandez M.D.12/31/2024 12:41 PM Dictation Location: [place] [address] Electronically authenticated by: [id number] Y Date: 12/31/2024 12:41 Dictated By: Mariusz Hernandez D.O. Signed By: 12/31/24 1244 DD/ 1241 TD/TT: Collar Separator:FERRITIN Reviewed date:01/05/2025 07:25:49 PM Interpretation: Performing Lab: Notes/Report: [facility] ,Qjktnekz145.08.0-252.0 ng/mLPerforming Lab:see note - [facility] LBIRON AND TIBC Reviewed date:01/05/2025 07:25:49 PM Interpretation: Performing Lab: Notes/Report: [facility] ,Iron69.050.0-170.0 ug/dLTotal Iron Binding Nqejmfil295.0250.0-450.0 ug/dL Percent Iron Xsxgjepudu73.3Performing Lab:see noteML - [facility] LB MAGNESIUM Reviewed date:01/05/2025 07:25:49 PM Interpretation: Performing Lab: Notes/Report: [facility] ,Magnesium1.91.8-2.4 mg/dLPerforming Lab:see noteML - [facility] LB Reason For Referral No Information Medications Medication SIG (Take, Route, Frequency, Duration) Notes Start Date End Date Status predniSONE 20 MG 3 tablets Orally Once a day; Du ration: 5 days 5ActivePantoprazole Sodium 40 mgTAKE 1 TABLET BY MOUTH DAILY; Duration: 90ActiveDiflucan 100 MG1 tablet Orally daily; Duration: 10 days5Active Carvedilol 25 mgTAKE 1 TABLET BY MOUTH TWICE DAILY (7AM and 7PM) WITH FOOD; Duration: 30ActiveLasix 20 MG1 tablet Orally Once a dayActiveLancets Super Thin ActiveLevothyroxine Sodium 100 mcgTAKE 1 TABLET BY MOUTH IN THE MORNING ON AN EMPTY STOMACH; Duration: 90ActiveSynvisc One 48 MG/6MLInject Intra-articular In right knee; Duration: 180 days5ActiveFerrous Sulfate 325 (65 Fe) MG1 tablet Orally Twice DailyActivecloNIDine HCl 0.1 MG 1 tablet every four hours as needed Orally Q4; Duration: 30 days As needed ActiveIsosorbide Mononitrate ER 120 MG1 tablet Oral once daily; Duration: 30 daysActivehydrALAZINE HCl 50 MG1 tablet with food Orally Three times a dayActive Ciprofloxacin HCl 500 MG1 tablet Orally every 12 hrs; Duration: 10 days 5ActiveTresiba FlexTouch 100 UNIT/ML30 units Subcutaneous Twice Daily ActiveAccu-Chek Holly Plus w/Deviceas directedActiveAspirin 81 81 MG1 tablet Orally Once a dayActiveAllopurinol 300 MG1 tablet Orally Once a day; Duration: 30 daysActiveOneTouch Ultra 2ActiveMacrobid 100 MG 1 capsule with food Orally daily; Duration: 30 days start after finishing cipro 5ActiveNovoLOG FlexPen 100 UNIT/ML12 in morning, 16 at lunch, 22 at supper SubcutaneousActiveOneTouch Ultra Testtest blood glucose daily; Duration: 90 daysActiveOneTouch Ultra BlueActiveLipitor 80 MG1 tablet Orally Once a day; Duration: 90 daysActiveBenzonatate 200 MG1 capsule Orally Three times a day; Duration: 7 days5ActiveLiothyronine Sodium 5 mcgTake 1 tablet orally once daily; Duration: 30 daysActiveNitroglycerin 0.4 MGas directed SublingualPRN ActiveMagnesium Oxide 400 MG1 tablet Orally three times dailyActive Immunizations Vaccine Route Administration Date Status Comme nts Flu, Fluad (0105-4199) (94841) 65 yrs+, single-dose syringe IM Intramuscular 07/11/2023 Administered Flu, Fluad (43289) 65 yrs and older, single-dose syringe (3149-7358)IM Naqqsuitazjuu85/02/2024AdministeredFlu, Fluad (99665) 65 yrs and older, single- dose syringe (0983-6695)IM Ltlemeiphdylx94/20/2025Administered Social History Tobacco Use: Social History Observation Description Date Details (start date - stop date) Never Smoker NA - NA Tobacco Use/Smoking Question Answer Notes Patient is a nonsmoker Problems Problem Type SNOMED Code ICD Code Onset Dates Problem Status W/U Status Risk Notes Problem Peripheral vascular disease (531469111) Peripheral vascular disease, unspecified (I73.9) ActiveconfirmedProblemAge-related osteoporosis (471256864)Age-related osteoporosis without current pathological fracture (M81.0)ActiveconfirmedProblem Chronic kidney disease (604156552)Chronic kidney disease, unspecified (N18.9) ActiveconfirmedProblemAnemia in chronic kidney disease (777693303)Anemia in chronic kidney disease (D63.1)ActiveconfirmedProblemHypomagnesemia (906184188) Hypomagnesemia (E83.42)ActiveconfirmedProblemHyperkalemia (51596280)Hyperkalemia (E87.5)ActiveconfirmedProblemHypertensive heart failure (66372573)Hypertensive heart disease with heart failure (I11.0)ActiveconfirmedProblemUnstable angina (3864981)Unstable angina (I20.0)ActiveconfirmedProblem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) ActiveconfirmedProblemDisorder of arteries and arterioles, unspecified (I77.9) ActiveconfirmedProblemOsteoarthritis of knee (785291428)Unilateral primary osteoarthritis, left knee (M17.12)ActiveconfirmedProblemCollapsed vertebra (04293635)Collapsed vertebra, not elsewhere classified, lumbar region, subsequent encounter for fracture withdelayed healing (M48.56XG)Activeconfirmed ProblemChronic kidney disease stage 4 (556602747)Chronic kidney disease, stage 4 (severe) (N18.4)ActiveconfirmedProblemChest pain (90147494)Chest pain (R07.9) ActiveconfirmedProblemHyperlipidemia (15465910)Hyperlipidemia (E78.5)Active confirmedProblemMitral regurgitation (03874458)Mitral regurgitation (I34.0) ActiveconfirmedProblemHypertension (96989170)Hypertension (I10)Activeconfirmed ProblemGastroesophageal reflux disease (152429047)GERD (gastroesophageal reflux disease) (K21.9)ActiveconfirmedProblemHypothyroidism (59693000)Hypothyroidism (E03.9)ActiveconfirmedProblemCoronary artery disease (18365605)CAD (coronary artery disease) (I25.10)ActiveconfirmedProblemHypertension (18172218)HTN (hypertension) (I10)ActiveconfirmedProblemEdema (13662691)Edema (R60.9)Active confirmedProblemCoronary artery disease (12286740)Coronary artery disease (I25.10)ActiveconfirmedProblemArthritis (4946407)Arthritis (M19.90)Active confirmedProblemOsteopenia (578788216)Osteopenia (M85.80)ActiveconfirmedProblem Gout (08209029)Gout (M10.9)ActiveconfirmedProblemDyspnea (228331669)Dyspnea (R06.00)ActiveconfirmedProblemOsteoarthritis of knee (651040438)Osteoarthritis of knee (M17.9)ActiveconfirmedProblemUrinary tract infectious disease (60409993) UTI (urinary tract infection) (N39.0)ActiveconfirmedProblemParoxysmal atrial fibrillation (598958894)Paroxysmal atrial fibrillation (I48.0)Activeconfirmed ProblemAcute sinusitis (10674746)Acute sinusitis (J01.90)ActiveconfirmedProblem Allergic rhinitis (08594030)Allergic rhinitis (J30.9)ActiveconfirmedProblem Diabetes mellitus type 2 (disorder) (59629442)DM2 (diabetes mellitus, type 2) (E11.9)ActiveconfirmedProblemLong-term current use of insulin (204076858)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319)ActiveconfirmedProblemSerum vitamin B12 low (714442492)Low vitamin B12 level (E53.8)ActiveconfirmedProblemOverweight (323857303)Over weight (E66.3)ActiveconfirmedProblemIron deficiency anemia (57469923)Anemia, iron deficiency (D50.9)ActiveconfirmedProblemVentricular hypertrophy (679506963) Ventricular hypertrophy (I51.7)ActiveconfirmedProblemPrimary hypothyroidism (55782268)Primary hypothyroidism (E03.9)ActiveconfirmedProblemIron deficiency anemia (14674339)Fe deficiency anemia (D50.9)ActiveconfirmedProblemHypertensive urgency (087898476)Hypertensive urgency (I10)ActiveconfirmedProblemVaginal discharge (982627561)Vaginal discharge (N89.8)ActiveconfirmedProblemType 2 diabetes mellitus with peripheral angiopathy (180330530)Diabetes mellitus type 2 with peripheral artery disease (E11.51)ActiveconfirmedProblemAt risk for falls (309582856)At risk for falls (Z91.81)ActiveconfirmedProblemMild nonproliferative retinopathy due to type 2 diabetes mellitus (208742720000973)Type 2 diabetes mellitus 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, 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)ActiveconfirmedProblemHypertensive urgency (912594686) Hypertensive urgency (I16.0)ActiveconfirmedProblemHypertensive emergency (540093232635909)Hypertensive emergency (I16.1)ActiveconfirmedProblemDiabetic renal disease (281795330)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)ActiveconfirmedProblemOsteoarthritis of knee (834577969)Osteoarthritis of right knee (M17.11)ActiveconfirmedProblemDiabetes mellitus (05166262)Diabetes mellitus (E11.9)ActiveconfirmedProblemCOVID-19 (634956565)COVID-19 (U07.1) ActiveconfirmedProblemChronic kidney disease stage 4 (553359460)Acute worsening of stage 4 chronic kidney disease (N18.4)ActiveconfirmedProblemPneumonia caused by Severe acute respiratory syndrome coronavirus (disorder) (152018217)Pneumonia due to Coronavirus disease 2019 (J12.82)ActiveconfirmedProblemLow back pain (174296593)Low back pain, unspecified (M54.50)ActiveconfirmedProblemLow back pain (finding) (636613191)Other low back pain (M54.59)Activeconfirmed Vital Signs Heart Rate 67 /min 12/31/2024 Xlujyakx69 %03/08/2025lood pressure xztvgijrv24 mm Hg07/26/20254573Pvrizu49 in 07/26/2025lood pressure komwpdyf007 mm Hg07/26/20257337Wrwjar535.4 lbs06/08/2025MI 30.73 kg/m206/08/2025 Encounters Encounter Location Date Provider Diagnosis [address] [address] 06/08/2025 Jeff Hoy Acute bronchitis, unspecified organism J20.[address] [address] 11/18/2024 Jeff Hoy Paroxysmal atrial fibrillation I48.0 ; Chronic kidney disease, stage 4 (severe) N18.4 ; Acute worsening of stage 4 chronic kidney disease N18.4 ; Hypertensive heart disease with heart failure I11.0 and Chronic kidney disease due to diabetes mellitus E11.[address] [address] 03/08/2025 Jeff Hoy Hypertension I10 ; Paroxysmal atrial fibrillation I48.0 and Diabetes mellitus type 2 with peripheral artery disease E11.[address] [address] 12/31/2024 Jeff Hoy Chest pain R07.9 ; Hypertension I10 ; Coronary artery disease I25.10 and Dyspnea R06.[address] [facility] [address] [place] [address] 04/29/2025 Jeff Hoy Hypertension I10 and Osteoarthritis of right knee M17.11 [facility] [address] [place] [address] 03/05/2025 Jeff Hoy Type 2 diabetes diony itus 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, bilateral E11.3293 [facility] [address] [place] [address] 09/22/2024 Jeff Hoy Dyspnea R06.00 and A cute bronchitis J20.9 [facility] [address] [place] [address] 07/26/2025 Jeff Hoy Acute UTI N39.0 ; Encounter for immunization Z23 and Chronic kidney disease, stage 4 (severe) N18.4 [facility] [address] [place] [address] 10/13/2024 Jeff Hoy Low vitamin B12 leve l E53.8 [facility] [address] [place] [address] 11/13/2024 Jeff Hoy Low vitamin B12 leve l E53.8 [facility] [address] [place] [address] 08/10/2024 Jeff Hoy Low vitamin B12 leve l E53.8 [facility] [address] [place] [address] 12/11/2024 Jeff Hoy Low vitamin B12 leve l E53.8 [facility] [address] [place] [address] 05/17/2025 Jeff Hoy Low vitamin B12 leve l E53.8 [facility] [address] [place] [address] 01/11/2025 Jeff Hoy Low vitamin B12 leve l E53.[address] [facility] [address] [place] [address] 02/10/2025 Jeff Hoy Low vitamin B12 leve l E53.[address] [facility] [address] [place] [facility] [address] 03/15/2025 Jeff Hoy Low vitamin B12 leve l E53.[address] [facility] [address] [place] [facility] [address] 04/14/2025 Jeff Hoy [facility] [place] [facility] [address] 07/07/2025Doug HoyLow vitamin B12 level E53.8B[facility] [place] [facility] [address]/Doug HoyHypertension I10 ; GERD (gastroesophageal reflux disease) K21.9 and Type 2 diabetes mellitus 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, bilateral E11.3293B[facility] [place] [facility] [place] [place] [address]/Doug [facility] [place] [facility] [address]/oug yBProwers [facility] Center[address] [facility] [address]/oug [facility] [place] [facility] [place] [address]/oug [facility] [place] [place] [place] [address]/ Jeff HoyUTI (urinary tract infection) N39.0[facility] [place] [facility] [address]/oug [facility] [place] [facility] [place] [address]/oug HoyUTI (urinary tract infection) N39.0[facility] [place] [address]/Doug [facility] [facility] [place] [address]/09/2025Doug HoyChronic kidney disease, stage 4 (severe) N18.4BKind[facility] [facility] [place] [address]/Doug HoyChronic kidney disease, stage 4 (severe) N18.4BKindred Hospital [facility] [facility] [place] [address]/Doug [facility] [facility] [place] [address]/Doug [facility] [facility] [address] [place] [address]/Doug [facility] [facility] [place] [address]/Doug [facility] [facility] [place] [address]/ Jeff HoyRight knee pain M25.561[facility] [facility] [place] [address]/Doug [facility] [facility] [place] [address]/01/2025Doug [facility] [facility] [place] [address]/05/2025Doug HoyRight knee pain M25.561[facility] [facility] [place] [address]/06/2025[facility] [facility] [place] [address]/[facility] [facility] [place] [address]/[facility] [facility] [place] [address]/[facility] [place] [facility] [place] [place] [address]/ Jeff Cris [facility] [place] [address] 05/24/2025[facility] [place] [facility] [place] [address]/Doug HoyDysuria R30.0[facility] [place] [facility] [place] [address]/[facility] [place] [facility] [place] [place] [address]/11/2024[facility] [place] [facility] [place] [place] [address]/ Jeff Lewis (hypertension) I10 Assessments Encounter Date Diagnosis (ICD Code) Assessment Notes Treatment Notes Treatment Clinical Notes Section Notes 08/10/2024 Low vitamin B12 level (ICD-10 - E53.8) 4Dyspnea (ICD-10 - R06.00)4Acute bronchitis (ICD-10 - J20.9) 10/13/2024Low vitamin B12 level (ICD-10 - E53.8)11/13/2024Low vitamin B12 level (ICD-10 - E53.8)11/18/2024Paroxysmal atrial fibrillation (ICD-10 - I48.0) 5Chronic kidney disease, stage 4 (severe) (ICD-10 - N18.4)11/24/2024HTN (hypertension) (ICD-10 - I10)12/11/2024Low vitamin B12 level (ICD-10 - E53.8) 5Chest pain (ICD-10 - R07.9)doubling lasix and repeat later today - update in am - getting labs and cxre12/31/2024Hypertension (ICD-10 - I10) 01/11/2025Low vitamin B12 level (ICD-10 - E53.8)05/07/2025Low vitamin B12 level (ICD-10 - E53.8)03/05/2025Type 2 diabetes mellitus 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, bilateral (ICD-10 - E11.3293) reviewed subars discusssed diet and exerccise , importance of staying hyudrated 03/08/2025Hypertension (ICD-10 - I10)03/08/2025Paroxysmal atrial fibrillation (ICD-10 - I48.0)03/15/2025Low vitamin B12 level (ICD-10 - E53.8)04/26/2025 Hypertension (ICD-10 - I10)04/26/2025GERD (gastroesophageal reflux disease) (ICD-10 - K21.9)04/29/2025Hypertension (ICD-10 - I10)up alijoshua bit - discussed diet cahnges - keep with meds04/29/2025Osteoarthritis of right knee (ICD-10 - M17.11)05/17/2025Low vitamin B12 level (ICD-10 - E53.8)06/08/2025ute bronchitis, unspecified organism (ICD-10 - J20.9)Rest and drink more liquids, especially water. You may use a humidifier or vaporizer to help keep the drainage moist. Nuzj-khc-xynkeyy Nasal Saline may help the stuffy and runny nose. Use Ibuprofen and or Tylenol as needed for fever, chills, body aches or pain. Children 5 years old should not be given dkam-zjn-pjgplbo cough and cold medications such as guaifenesin and dextromethorphan. If you're over age 5, you may try gjna-lgf-htmopsz cold medications such as guaifenesin and dextromethorphan, or multi-symptom cold reliever such as Dayquil to help reduce the symptoms. Antibiotics have been prescribed. You should take these until completed and follow the directions. Antibiotics can sometimescause upset stomach, and in rare cases, serious [...] go to the emergency room or call [phone] vitamin B12 level (ICD-10 - E53.8)5Acute UTI (ICD-10 - N39.0)07/26/2025 Encounter for immunization (ICD-10 - Z23)09/04/2024UTI (urinary tract infection) (ICD-10 - N39.0)09/07/2024UTI (urinary tract infection) (ICD-10 - N39.0) 12/16/2024hronic kidney disease, stage 4 (severe) (ICD-10 - N18.4)12/17/2024 Chronic kidney disease, stage 4 (severe) (ICD-10 - N18.4)03/03/2025Right knee pain (ICD-10 - M25.561)04/13/2025Right knee pain (ICD-10 - M25.561)05/25/2025 Dysuria (ICD-10 - R30.0)5Chronic kidney disease, stage 4 (severe) (ICD- 10 - N18.4)04/26/2025Type 2 diabetes mellitus 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, bilateral (ICD-10 - E11.3293)leavign sugars the same - doing well with eating mor mrdnohchmzi30/02/2025Diabetes mellitus type 2 with peripheral artery disease (ICD-10 - E11.51)12/31/2024 Coronary artery disease (ICD-10 - I25.10)5Acute worsening of stage 4 chronic kidney disease (ICD-10 - N18.4)11/18/2024Hypertensive heart disease with heart failure (ICD-10 - I11.0)iner with hypertensive urgency -12/31/2024Dyspnea (ICD-10 - R06.00)11/18/2024hronic kidney disease due to diabetes mellitus (ICD-10 - E11.22)04/29/2025OtherSynvisc today Plan Of Treatment Pending Test Test Name Order Date CMP (COMPLETE METABOLIC PANEL) CMP (COMPLETE METABOLIC PANEL) UA (URINALYSIS, COMPLETE) 01/17/2024 UA (URINALYSIS, COMPLETE) 05/28/2024 UA (URINALYSIS, COMPLETE) 10/01/2023 UA (URINALYSIS, COMPLETE) 01/09/2024 UA (URINALYSIS, COMPLETE) 07/23/2023 UA (URINALYSIS, COMPLETE) 07/23/2023 UA (URINALYSIS, COMPLETE) 05/25/2025 CBC WITH DIFF 06/18/2024 Urinalysis Microscopic 06/18/2024 Urinalysis Microscopic 07/23/2023 Urinalysis Microscopic 09/04/2024 Urine Culture 05/25/2025 Urine Culture 07/23/2023 Urine Culture 10/01/2023 Urine Culture 01/17/2024 Urine Culture 01/09/2024 URINE CULTURE 10/01/2023 URINE CULTURE 05/28/2024 URINALYSIS 10/01/2023 CMP - Comprehensive Metabolic Panel 05/08 CBC W/AUTO DIFF 05/28/2024 High Sensitivity Troponin 12/31/2024 WALESKA Ankle Brachial Index (94313) 024 BNP 06/18/2024 CULTURE URINE 06/18/2024 CULTURE URINE 07/23/2023 CULTURE URINE 09/04/2024 URINE MICROSCOPIC ONLY 01/09/2024 URINE MICROSCOPIC ONLY 10/01/2023 URINE MICROSCOPIC ONLY 05/28/2024 US KIDNEYS 07/26/2025 US KIDNEYS BLADDER 07/26/2025 XR CHEST 2 V 12/31/2024 XR CSPINE MIN 4 VIEWS 12/30/2023 XR DEXA BONE DENSITY 06/09/2024 XR KNEE RT 4V or > 04/13/2025 THYROID PANEL (T4/TSH/FREE T3) 4 Insurance Providers Payer Name Payer Address Payer Phone Subscriber Number Group Number Insured Name Patient Relationship to Insured Coverage Start Date Coverage End Date [employer]ARE [address] [place] [id number] Kylah Robin Self - patient is the insured 2 Medications Administered Medication Instructions Date of Administration Dosage Notes Cyanocobalamin bGQmopdygjispvgx66/09/20231 cTZmctestxufinwo95/12/20231 mL Ektfpcsxncnmzi54/12/36649 iABsvuoupkzurmmp60/14/20231 eORhzpybixzjwmpw18/02/2023 1 cIXajwgsjhnwfxbo01/03/20231 bGBnitwsxzfxtnkp64/07/20231 mLCyanocobalamin fBYcbcyakptfhokx50/09/20241 kXPvqqbyynvmqkbu26/11/20241 mL Lwpykrbkdhqvdt54/01/20241 lTHvrxxqlcydfbfp87/03/20241 tBHsewjxlzhqzsbb47/05/2024 1 vMHewhzeasfqhcza20/06/20241 dZVwyekfocyyifxf26/09/20241 mLCyanocobalamin lNLiesuwyahaexll83/07/20251 mDSaiuwyvnxtivaz56/07/20251 mL Ibtmmyinddhjar97/07/20251 oDKphvmyeitoawpa71/07/20251 bCPloevydokeccch78/07/2025 1 bGGzorujqpcciwty00/09/20251 hNYqlatkciahyvvo55/11/20251 mLCyanocobalamin mLKenalog-400 mgSynvisc One mL Medical (General) History Medical History History [...] 21.9 grade1 diastolic dysfunction left atrium mildly dilatedSurgical History Surgery Date(Month/Year) Gallbladder HysterectomySinus surgeryCataract OUOpen heartBilat shoulder scope Hospitalization History Reason Date(Month/Year) HTN 02/2024 hypertension 01/2024 Hypertension 12/2023 SEE ABOVE
--- NOTE | 2025-07-28 07:57 | US_ITS ---
The [address] [address] Patient Name: KYLAH BERGER MRN: [id number] date: 1945 Sex: F Assigned Patient Location: US Current Patient Location: US Accession/Order Number: [id number] Exam Date: 07/28/2025 08:00 Report Date: 07/28/2025 09:10 At the request of: DHRUV GTUIERRES MD Procedure: US renal bladder BILATERAL RENAL AND BLADDER ULTRASOUND CLINICAL HISTORY: Chronic Kidney Disease Stage 4 COMPARISON: CT 09/20/2024 Estimation of renal size is approximately 8.5 cm on the right and 9.6 cm on the left. No shadowing calculi or hydronephrosis are identified. There is a tiny cyst at the mid to lower pole on the right measuring 9 x 9 x 6 mm. There is no perinephric fluid. The urinary bladder is poorly distended with a volume of 18 mL. This limits evaluation. The post void bladder residual is 5 mL US/US renal bladder IMPRESSION: NO OBSTRUCTIVE UROPATHY. TINY RIGHT RENAL CYST. Impression dictated by: Cary Good M.D. 07/28/2025 9:10 AM Dictation Location: [place] [address] Electronically authenticated by: [id number] Y Date: 07/28/2025 09:10
== END 2025-07-28 07:53 | disposition home or self-care (01) ==
LOC: US 07:52
PROVIDERS: PCP Family Medicine; Visit Provider Family Medicine
DX: N18.4 Chronic kidney disease, stage 4 (severe) (principal); N28.1 Cyst of kidney, acquired
CPT/HCPCS: 76770

== ENCOUNTER 2025-08-19 09:41 | Outpatient (OUT) | payer MEDICARE, SELFPAY ==
--- OUTSIDE RECORDS SUMMARY | 2025-08-19 09:44 | XMS_ITS | Clinical Summary ---
Author Organization [facility] Address [address] [place] [address] Care Team Providers Care Manager Event Name Role Phone Merrick Rubi MD Primary Care Provider [phone] Allergies Active AllergyReactionsCriticalityNoted DateCommentsAmlodipineOther,Rash,Unknown High03/28/2005 NORVASC Amoxicillin-Pot ClavulanateOther,Rash,BfgeiffXua82/17/2021 AUGMENTIN Clavulanic ZdltCpmowrb28/01/7528KitrjtbmvNantu07/17/2021Iodinated Contrast Media Other11/23/20203417VieejzolzfzihlsnTqych68/06/2023Sulfamethoxazole-TrimethoprimHives ,Other,Rash,BuqliebStf71/29/2015 BACTRIM ZjnrkoncxlpkAxiyLyf56/01/2025 Medications MedicationSigDispense QuantityRefillsLast FilledStart DateEnd DateStatus aspirin [...] BY MOUTH EVERY MORNING ON AN EMPTY FZZTTVS7812/21/2023ctive pantoprazole (ProtoNix) 40 mg EC tablet Take [...] UNITS at lunch, and 22 UNITS at vcwene6406/06/2023ctive insulin detemir (Levemir FlexPen) 100 unit/mL (3 mL) injection pen INJECT 50 UNITS SUBCUTANEOUSLY (under the skin) TWICE DAILY06/15/2015ctive nitroglycerin (Nitrostat) 0.[address] 1 tablet as needed by sublingual route as directed.01/27/2024ctive hydrALAZINE (Apresoline) 10 mg tablet Indications: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 270 tablet 305ctive Additional Information Patient not taking.Reported on 08/02/2025 insulin degludec (Tresiba FlexTouch U-100) 100 unit/mL (3 mL) injection Inject under the skin at bedtime.Active hydrALAZINE (Apresoline) 25 mg tablet Indications:Benign hypertensive heart disease with heart failure (CMS/HCC)Take 1 tablet (25 mg) by mouth three times daily. 270 tablet ctive Additional Information Patient not taking.Reported on 08/02/2025 isosorbide mononitrate ER (Imdur) 120 mg 24 hr tablet Take 120 mg by mouth in the morning. Do not crush or chew.Active hydrALAZINE (Apresoline) 50 mg tablet Indications:Benign hypertensive heart disease with heart failure (CMS/HCC)Take 1 tablet (50 mg) by mouth three times daily. 270 tablet 302502/ctive diclofenac (Voltaren) 75 mg EC tablet Take 1 tablet by mouth twice a day.Active lisinopril 40 mg tablet Take 40 mg by mouth in the morning.Active ranolazine (Ranexa) 500 mg 12 hr tablet Take 1 tablet by mouth twice a day.Active cholecalciferol (D3-5) 5,000 Units tablet Take 1,000 Units by mouth in the morning.06/15/2024ctive Active Problems ProblemNoted DateDiagnosed DateAsymptomatic vjebcfhgwsq23/23/7596Dmkp23/23/2025 Secondary dxblfgytdblkdxfzszg21/23/2025ontact aqvlddsgvh44/05/2024yspnea Hypertensive ddnykbz81Stage 4 chronic kidney ypezpdn44lass 1 obesity in adult Essential gomajhmeuxra07therosclerosis of [place] coronary artery of [place] heart without angina eadqqygp95H/O four vessel coronary artery bypass graftaroxysmal atrial wouttdgvzajq93Unstable rrtgtl65nemia rthritisiabetes rrywwuyc43/15/2017 02/10/2024Other ukjyplksoztilx11isorder of carotid artery ombined forms of age-related cataract of left eye01/30/2016 02/10/2024cquired safgnlvhzhqwdd22 Encounters DateTypeDepartmentCare VjwtEhraxijbbhb40/27/2025 9:20 AM EDTOffice Visit [place] [address] [place] [address] Jasvir Levine CNP Coronary artery disease involving [place] coronary artery of [place] heart without angina pectoris (Primary Dx); Benign hypertensive heart disease with heart failure (CMS/HCC); Nonrheumatic mitral valve regurgitation; Mixed czpqjszwbwyhog96/11/2025Orders Only [facility] [address] [place] [address] Provider, MD Sloane from Last 3 Months Family History RelationNameStatusCommentsFatherDeceasedMotherDeceased Social History Tobacco UseTypesPacks/DayYears UsedDateSmoking Tobacco: FormerCigarettes Smokeless Tobacco: Never Tobacco Cessation:Counseling Given: Not Answered Alcohol UseStandard Drinks/WeekCommentsNot Currently0 (1 standard drink = 0.6 oz pure alcohol)NM Safety & EnvironmentAnswerDate RecordedFear of Current or Ex-PartnerNot on file01/27/2024Emotionally AbusedNot on file01/27/2024hysically AbusedNot on file01/27/2024Sexually AbusedNot on file01/27/2024hysically or Sexually AbusedNot on file01/27/2024CommentsUnknownSex and Gender InformationValueDate RecordedSex Assigned at UqeupAtvtuw24/24/2025 1:54 PM EDT Legal NnuKharld68/29/2022 10:24 PM EDTGender WswmnrfwYkqnim19/24/2025 1:54 PM EDTSexual OrientationHeterosexual or Czelpiuz78/24/2025 1:54 PM EDT Last Filed Vital Signs Vital SignReadingTime TakenCommentsBlood Nkgbeoai967/7008/02/2025 9:14 AM EDT Fcfam385608/02/2025 9:14 AM EDTTemperature--Respiratory Rate--Oxygen Dpnktkmsqh12% 08/02/2025 9:14 AM EDTInhaled Oxygen Concentration--Ftjjtu61.3 kg (188 lb) 08/02/2025 9:14 AM ILKWgwbik517.6 cm (5' 6 )08/02/2025 9:14 AM EDTBody Mass Index30.341 9:14 AM EDT Plan of Treatment Health MaintenanceDue DateLast DoneCommentsDiabetes: Hemoglobin A1C1945 Medicare Annual Wellness (AWV)1945Diabetes: Retinopathy Screening 1954Depression Gpdrfykjq95/10/1957dult Ozthiwp9812/14/1966Zoster Vaccines (1 of 2)1994Fall Risk Ftwmgsgys76/10/2010COVID-19 Vaccine ( season)504/, 1Diabetes: Urine Protein Screening 609/Pneumococcal Vaccine: 50+ PbwagSjdwnppbp92/09/2017, 08/08/2012, 08/09/2003Influenza XtrwlbpTbczvscmz04/20/2025, 07/08/2024, 07/11/2023, Additional history existsHIB VaccinesAged OutNo longer eligible based on patient's age to complete this topicHPV VaccinesAged OutNo longer eligible based on patient's age to complete this topicIPV VaccinesAged OutNo longer eligible based on patient's age to complete this topicMeningococcal B VaccineAged OutNo longer eligible based on patient's age to complete this topic Meningococcal VaccineAged OutNo longer eligible based on patient's [...] Robin TypeRelation to PatientDate of BirthPhone Billing AddressPersonal/DzmpxtUrzz34[birth year][address] [address] Care Teams Team MemberRelationshipSpecialtyStart DateEnd Merrick Rubi MD [address] [facility] [place] [address] PCP - [facility]01/22/24
--- OUTSIDE RECORDS SUMMARY | 2025-08-19 09:44 | XMS_ITS | Clinical Summary ---
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 Name Role Phone Merrick Rubi MD Primary Care Provider [phone] Allergies Active AllergyReactionsCriticalityNoted DateComments Sulfamethoxazole-UgcvwtojicjxDwhvb82/29/2015 Medications MedicationSigDispense QuantityRefillsLast FilledStart DateEnd DateStatus allopurinol [...] MG tablet Take 80 mg by mouth bryiecn8606/22/2015ctive Insulin Aspart (NOVOLOG FLEXPEN SC) Inject into [...] of left eye01/30/2016IDDM (insulin dependent diabetes mellitus)08/04/2015cquired zaeejvcqzyqytz35/29/2015 Family History Medical HistoryRelationNameCommentsDiabetesBrother 2DiabetesBrother 3Diabetes Brother 4CancerFatherlungDiabetesFatherDiabetesMaternal GrandfatherCancer Maternal GrandmotherbreastDiabetesMaternal GrandmotherCancerMotherbreastDiabetes MotherDiabetesPaternal GrandfatherDiabetesPaternal GrandmotherDiabetesSister 1 DiabetesSister 2RelationNameStatusCommentsBrother 1DeceasedBrother 2Deceased Brother 3AliveBrother 4AliveFatherDeceasedMaternal GrandfatherDeceasedMaternal GrandmotherDeceasedMotherDeceasedPaternal GrandfatherDeceasedPaternal GrandmotherDeceasedSister 1AliveSister 2Alive Social History Tobacco UseTypesPacks/DayYears UsedDateSmoking Tobacco: NeverSmokeless Tobacco: NeverAlcohol UseStandard Drinks/WeekCommentsNo0 (1 standard drink = 0.6 oz pure alcohol)CommentsNoSex and Gender InformationValueDate RecordedSex Assigned at BirthNot on fileLegal YpwEyjytj61/10/2013 4:54 PM ESTGender Identity Not on fileSexual OrientationNot on file Last Filed Vital Signs Vital SignReadingTime TakenCommentsBlood Nntovlty630/7104 1:40 PM EDT Mcbmr3794 1:40 PM VJMNxyomlzjnxc71.7 ??C (98 ??F)01/30/2016 1:24 PM EDT Respiratory Jrfg7358 1:40 PM EDTOxygen Bhrpgagvys70%01/30/2016 1:40 PM EDTInhaled Oxygen Concentration--Cqmwax25.7 kg (200 lb)01/30/2016 12:28 PM EDT Vkphbf206.6 cm (5' 6 )01/30/2016 12:28 PM EDTBody Mass Index32.28001/30/2016 12:28 PM EDT Plan of Treatment Not on file Insurance Advance Directives * Full Code (Latest Code Status on File) Date ActivatedDate InactivatedComments01/30/2016 1:33 PM01/30/2016 4:23 PM * Full Code Date ActivatedDate InactivatedComments01/30/2016 12:27 PM01/30/2016 1:33 PM Care Teams Team MemberRelationshipSpecialtyStart DateEnd Merrick Rubi MD [address] [place] [address] [facility] - General01/17/16
--- NOTE | 2025-08-19 09:56 | MR_ITS ---
[address] [address] Patient Name: KYLAH BERGER MRN: [id number] date: 1945 Sex: F Assigned Patient Location: MRI Current Patient Location: MRI Accession/Order Number: [id number] Exam Date: 08/19/2025 10:02 Report Date: 08/19/2025 15:41 At the request of: DHRUV GUTIERRES MD Procedure: MR knee RT wo con MR knee RT wo con 08/19/2025 11:11 AM SIGNS AND SYMPTOMS: right knee pain PROTOCOL: Multiplanar multisequence MR images of the right knee without IV contrast COMPARISON: None. FINDINGS: Fluid: Large effusion. Medial compartment: Medial meniscus: There is a complex tear involving the posterior horn and body of the medial meniscus with displaced fragments in the central aspect of the medial weightbearing joint space extending to the undersurface of the posterior cruciate ligament. The fragment measures 1.0 x 1.8 cm in greatest dimension. Medial collateral ligament: Intact. Medial femoral condyle cartilage: There is full thickness chondromalacia with mild subchondral edema. Osteophytosis. Medial tibial plateau cartilage: There is full thickness chondromalacia with mild subchondral edema. Osteophytosis. Lateral compartment: Lateral meniscus: Intact. Lateral collateral ligament: Intact. Lateral femoral condyle cartilage: Preserved. Lateral tibial plateau cartilage: Preserved. Posterolateral corner: Popliteus tendon: Intact. Popliteofibular ligament: Intact. Proximal tibiofibular joint: Preserved. Anterior compartment: Alignment: Normal. Quadriceps tendon: Intact. Patellar tendon: Intact. Retinaculum: Medial intact. Lateral intact. Patellar cartilage: There is partial thickness chondromalacia along the lateral articular surface of the patellofemoral joint. Trochlea: Preserved. Plica: None Hoffa fat pad: Normal Intercondylar compartment: Anterior cruciate ligament: Intact. Posterior cruciate ligament: Intact. Bones (other than subarticular marrow): Normal. Muscles: Normal. Vessels: Normal. Nerves: Normal. MR/MR knee RT wo con IMPRESSION: There is a complex tear involving the posterior horn and body of the medial meniscus with displaced fragments in the central aspect of the medial weightbearing joint space extending to the undersurface of the posterior cruciate ligament. The fragment measures 1.0 x 1.8 cm in greatest dimension. There is full thickness chondromalacia on both sides of the medial weightbearing joint space with subchondral edema. There is a large joint effusion. There is partial thickness chondromalacia along the lateral articular surface of the patella. Impression dictated by: Juan Grey M.D. 08/19/2025 3:41 PM Dictation Location: [place] [address] Electronically authenticated by: [id number] Y Date: 08/19/2025 15:41
== END 2025-08-19 09:42 | disposition home or self-care (01) ==
LOC: MRI 09:41
PROVIDERS: PCP Family Medicine; Visit Provider Family Medicine
DX: M25.561 Pain in right knee (principal); S83.231A Complex tear of medial meniscus, current injury, right knee, initial encounter; M94.261 Chondromalacia, right knee; M25.461 Effusion, right knee
CPT/HCPCS: 73721

== ENCOUNTER 2025-08-23 09:37 | Outpatient (OUT) | payer MEDICARE, SELFPAY ==
--- OUTSIDE RECORDS SUMMARY | 2025-08-23 09:46 | XMS_ITS | CCD ---
Author Organization [facility] CliniSypr Care Team Providers Care Nematologist Name Role Phone PHYSICIAN, DEFAULT Unavailable Unavailable PHYSICIAN, DEFAULT Unavailable Unavailable Doreen, Ron Unavailable Óscar Ackermaniz Unavailable Elashi, Essam Unavailable BHAVIK ., DR BARTLETT Consulting Unavailable [...] Care Unavailable ELASHI, DR SKINNER Attending Unavailable KERIASHI, DR SKINNER Admitting Unavailable WEST, DR BENI [...] Provider Dhruv Gutierres MD Primary Care Provider [phone] Dhruv Gutierres MD Primary Care Provider [phone] Dhruv Gutierres MD Primary Care Provider Dhruv Gutierres MD Primary Care Provider Dhruv Gutierres MD Primary Care Provider Dmitriy Lynne MD Attending Provider [phone] Dhruv Gutierres MD Attending Provider Dmitriy Lynne Admitting Unavailable Dmitriy Lynne Attending Unavailable Dhruv Gutierres Primary Care Unavailable Dhruv Gutierres Attending Unavailable Dhruv Gutierres Admitting Unavailable LORRAINE POPE Attending Unavailable LORRAINE POPE Attending Unavailable GA LAI Attending Unavailable LORRAINE POPE Attending Unavailable LORRAINE POPE Referring Unavailable GREG LONGORIA Attending Unavailable LORRAINE POPE Attending Unavailable GA LAI Attending Unavailable Ron Martinez MD Attending Provider [phone] ALEJANDRO ORTIZ Attending Unavailable STEFANO CATHERINE Attending Unavailable ALEJANDRO ORTIZ Attending Unavailable Allergies Allergy ClassificationReported Allergen(s)Allergy TypeDate of OnsetReaction(s) Facility (20 sources)amLODIPine; Translations: [AMLODIPINE]Drug Lxpdiyp22-54-1139Lvgjhpl, RashProEasyaula Repository (20 sources)Amoxicillin / ClavulanateDrug Ouhfrll15-42-9174MsbfMcoin Coast [facility] Other (20 sources)Contrast mediaPropensity to adverse reactionsSaint [facility]'s Hospital [facility] Other (2 sources)Doxazosin; Translations: [doxazosin]Drug AllergySaint Joseph's Hospital [facility] Other (20 sources)Sulfamethoxazole / TrimethoprimDrug Ckktlrb69-40-1729WoyyArali Coast [facility] Other (20 sources)Doxazosin; Translations: [DOXAZOSIN]Drug Jashgkc16-98-9840Ojqvaua, RashProEasyaula Repository (9 sources)Amoxicillin / Clavulanate; Translations: [Augmentin]Drug Allergy 08-97-8394OzlugteFfmWexner Medical Center Repository (1 source)amLODIPineDrug Ufhetui24-95-3948UayThe [facility] Hospital Repository (1 source)Sulfamethoxazole / TrimethoprimDrug Xflckgu01-24-8672QnoThe Christ Hospital Repository (2 sources)Sulfamethoxazole / Trimethoprim; Translations: [SULFAMETHOXAZOLE-TRIMETHOPRIM]Drug Qsmaekd97-37-7772FphOjcahh Repository (20 sources)IODINATED CONTRAST MEDIA; Translations: [IODINATED CONTRAST MEDIA] Propensity to adverse reactions to drug (disorder)84-68-2096PsidbPcsNzszyg Repository (20 sources)AMOXICILLIN-POT CLAVULANATE; Translations: [AMOXICILLIN-POT CLAVULANATE]Propensity to adverse reactions to drug (disorder)31-42-7386Oagnjjt [facility] Repository (20 sources)AmoxicillinDrug Myseika60-28-8041RkzruovQEPB Healthcare (20 sources)DoxazosinDrug Tqkevhd09-49-7430XdwnsslWYOT Healthcare (20 sources)Sulfamethoxazole; Translations: [SULFAMETHOXAZOLE]Allergy to zogiujwkn73-10-1623AywiqieWHQJ Healthcare (20 sources)Trimethoprim; Translations: [TRIMETHOPRIM]Drug Ngtkbxi88-35-3857 [facility] (6 sources)Clavulanate; Translations: [clavulanic acid]Drug Mxiprlt19-24-0623 Unknown ReactionCincinnati [facility] (1 source)amLODIPineDrug Zvjlkau80-53-3264CwzlchaghCincinnati Shriners Hospital Repository (1 source)AmoxicillinDrug Wmnkvxy07-27-7186IwpzmzzkrCincinnati Shriners Hospital Repository (1 source)DoxazosinDrug Wmggnzd23-21-5440DnzoxgaruCincinnati Shriners Hospital Repository (1 source)SulfamethoxazoleDrug Zhkgopd90-94-5123KxkywuqvwCincinnati Shriners Hospital Repository (1 source)TrimethoprimDrug Lgwlmjs82-54-2525ScfpidftgCincinnati Shriners Hospital Repository Medications Current Medications MedicationDrug Class(es)DatesSig [...] mg oral tablet (20 sources)Xanthine Oxidase InhibitorStart: 26-61-5929isim 1 tablet by mouth once dailyAllopurinol 100 mg tablet Active 100 MG PO Daily June 15, 2024 12:00am Complies with drug therapyStart: 10-09-2019 End: 20-34-9040Xyuccvdukgs 300 mg tablet Discontinued 100 MG PO [...] sources)Platelet Aggregation Inhibitor, Nonsteroidal Anti-inflammatory Drug Start: 65-13-2165laie 1 tablet by mouth once dailyAspirin 81 mg tablet,chewable Active 1 TAB PO Daily December 04, 2023 1:00am FreeTextSi tablet Orally Once a day; Note: Source Status: Taking; Provider: Doreen Velasquez ( ) Complies with drug therapyStart: 89-08-5984qtrr 1 tablet by mouth once dailyaspirin 81 mg Indications: Hypertensive urgency , Shortness of breath , H/O four vessel coronary artery bypass graft , Atherosclerosis of [place] coronary artery of [place] heart without angina pectoris , Paroxysmal atrial fibrillation (CMS-HCC) , Localized edema Take 1 tablet (81 mg total) by mouth d rosarioy. 90 tablet 3 01/11/2021 ActiveStart: 10-09-2019 End: 55-03-1952vyje 1 tablet by mouth once dailyAspirin 81 mg Tablet,Delayed Release (Dr/Ec) Discontinued 81 MG PO Daily October 09, 2019 1:00am October 13, 2019 3:07pmtake 1 tablet by mouth every twenty-four hoursAspirin 81 MG 1 tablet Orally Once a day Activeatorvastatin 80 mg oral tablet (20 sources)HMG-CoA Reductase InhibitorStart: 88-47-5108xuop 1 tablet by mouth once dailyatorvastatin (LIPITOR) 80 mg tablet Indications: Atherosclerosis of [place] coronary artery of [place] heart without angina pectoris , H/O four vessel coronary artery bypass graft , Hyperlipidemia, unspecified hyperlipidemia type TAKE 1 TABLET BY MOUTH NIGHTLY 45 tablet 03/12/2025 ActiveStart: 12-27-2022 End: 88-61-4394lvca 1 tablet by mouth once dailyAtorvastatin 80 mg tablet Discontinued 1 TAB PO Daily December 04, 2023 1:00am June 15, 2024 10:37am FreeTextSi tablet Orally Once a day; Note: Source Status: Taking; Provider: Doreen Velasquez ( )ATORVASTATIN CALCIUM PO Atorvastatin Calcium Activebetamethasone 0.5 mg/ml topical cream (20 sources)CorticosteroidStart: 05-25-2024 End: 04-11-3688gflgdcrdpster dipropionate 0.05 % cream Indications: Granuloma annulare [...] 180 tablet 3 01/17/2024 ActiveStart: 08-06-2022 End: 99-28-2187jkas 1 tablet by mouth once in the [...] 0.125 mg oral tablet (7 sources)Vitamin DStart: 02-02-7644rlam 1 tablet by mouth once daily Cholecalciferol (Vitamin D3) 125 mcg (5,000 unit) tablet Active 125 MCG PO Daily June 15, 2024 12:00am Complies with drug therapy End: 97-86-0217puri 1 tablet by mouth in the morningcholecalciferol, vitamin D3, 5,000 units tablet Take 1 tablet (5,000 Units total) by mouth in the morning. 01/17/2024 Discontinued (Therapy completed)ciprofloxacin 500 mg oral tablet (3 sources)Quinolone Antimicrobialtake 1 tablet by mouth every twelve hoursCipro 500 MG 1 tablet Orally every 12 hrs ActivecloNIDine hydrochloride 0.1 mg oral tablet (16 sources)Central alpha-2 Adrenergic AgonistStart: 60-13-6606sxua 1 tablet by mouth every four hours as neededClonidine Hcl 0.1 mg tablet Active 0.1 MG PO Every 4 hours as needed June 15, 2024 12:00am Complies with drug therapy Start: 01-01-2024 End: 93-83-4666swhj 2 tablets by mouth in the morning, [...] Active docusate sodium 50 mg / sennosides, residential 8.6 mg oral tablet (5 sources)take 1 tablet by mouth every twelve hoursSennosides-Docusate Sodium 8.6-50 MG 1 tablet in the evening as needed Orally every 12 hours Activeepoetin johnna-epbx 06149 UNT/ML Injectable Solution [Retacrit] (14 sources)Retacrit 33007 UNIT/ML as directed Injection Activeferrous sulfate 325 mg oral tablet (20 sources)Start: 23-35-4741inmv 1 tablet by mouth twice dailyFerrous Sulfate 325 mg (65 mg iron) tablet Active 325 MG PO Twice daily June 15, 2024 12:00amComplies with drug therapyStart: 10-09-2019 End: 43-37-9631hznx 1 tablet by mouth once dailyFerrous Sulfate 325 mg (65 mg iron) Tablet Discontinued 325 MG PO Daily October 09, 2019 1:00am December 04, 2023 9:54amtake 1 tablet by mouth twice dailytake 1 tablet by mouth twice dailyFerrous Sulfate 325 (65 Fe) MG 1 tablet Orally bid for 90 day(s) Active hydrALAZINE hydrochloride 50 mg oral tablet (8 sources)Arteriolar VasodilatorStart: 83-93-1187hncj 1 tablet by mouth three times dailyHydralazine 50 mg tablet Active 50 MG PO Three times daily January 14, 2025 12:00am Complies with drug therapyStart: 06-15-2024 End: 50-51-0440piex 1 tablet by mouth three times dailyHydralazine [...] unit/mL (3 mL) insulin pen (2 sources)Start: 99-10-6227Jdpluqb Aspart U-100 (Novolog Flexpen U-100 Insulin) 100 unit/mL (3 mL) insulin pen Active SUBCUT Three times daily June 15, 2024 10:33am FreeTextSig: Use as Directed Subcutaneous 12 units in am, 16 units at noon, 22 units at supper.; Note: Source Status: Taking; Provider: Doreen Velasquez ( )Start: 12-04-2023 End: 34-79-5046Opiuclw Aspart U-100 (Novolog Flexpen U-100 Insulin) 100 unit/mL (3 mL) insulin pen Discontinued SUBCUT December 04, 2023 1:00am June 15, 2024 10:37am FreeTextSig: Use as Directed Subcutaneous 10 units in am, 15 units at noon, 20 units at supper.; Note: Source Status: Taking; Provider: Doreen Velasquez ( )3 ml insulin aspart, human 100 unt/ml pen injector (20 sources)Insulin AnalogStart: 50-54-7053Neicztz Aspart U-100 (Novolog Flexpen U-100 Insulin) 100 unit/mL (3 mL) insulin pen Active SUBCUT Three times daily June 15, 2024 10:33am FreeTextSig: Use as Directed Subcutaneous 12 units in am, 16 units at noon, 22 units at supper.; Note: Source Status: Taking; Provider: Doreen Velasquez ( ) Complies with drug therapyStart: 12-04-2023 End: 43-21-7376Xouksvn Aspart U-100 (Novolog Flexpen U-100 Insulin) 100 unit/mL (3 mL) insulin pen Discontinued SUBCUT December 04, 2023 1:00am June 15, 2024 10:37am FreeTextSig: Use as Directed Subcutaneous 10 units in am, 15 units at noon, 20 units at supper.; Note: Source Status: Taking; Provider: Doreen Velasquez ( )Start: 10-09-2019 End: 85-73-1528vtrbke 4 [IU] by subcutaneous injection once before [...] 100 unt/ml pen injector (3 sources)Insulin AnalogStart: 35-25-8997Xvzijvs Degludec (Tresiba Flextouch U- 100) 100 unit/mL (3 mL) insulin pen Active 30 UNIT SUBCUT Twice daily January 14, 2025 12:00am Complies with drug therapyInsulin Degludec (Tresiba Flextouch U-100) 100 unit/mL (3 mL) insulin pen (1 source)Start: 34-02-3582Tsnuvey Degludec (Tresiba Flextouch U-100) 100 unit/mL (3 mL) insulin pen Active 30 UNIT SUBCUT Twice daily January 14, 2025 12:00am24 hr isosorbide mononitrate 120 mg extended release oral tablet (15 sources)Nitrate VasodilatorStart: 49-74-6674bwad 1 tablet by mouth once daily in the morning, then take 1 tablet by mouth every twenty-four hours Isosorbide Mononitrate 120 mg tablet extended release 24 hr Active 120 MG PO Every morning June 15, 2024 12:00am Complies with drug therapyStart: 21-80-0896nufm 1 tablet by mouth once dailyisosorbide mononitrate (IMDUR) 30 mg 24 hr tablet Take 1 tablet (30 mg total) by mouth daily. 90 tablet 3 01/17/2024 ActiveStart: 10-09-2019 End: 64-63-8760rcck 1 tablet by mouth once daily, then take 1 tablet by mouth every twenty-four hoursIsosorbide Mononitrate 120 mg tablet extended release 24 hr Discontinued 120 MG PO Daily October 09, 2019 1:00am December 04, 2023 9:54amLevemir FlexTouch 100 UNIT/ML (11 sources)Levemir FlexTouch 100 UNIT/ML As Directed Subcutaneous 50 units twice a day Activelevothyroxine sodium 0.1 mg oral tablet (20 sources)l-ThyroxineStart: 43-11-5457hfvx 1 tablet by mouth once daily Levothyroxine 100 mcg tablet Active 100 MCG PO Daily June 15, 2024 12:00am Complies with drugtherapyStart: 10-09-2019 End: 09-43-5595nzxx 1 tablet by mouth once dailyLevothyroxine 125 [...] sodium 0.005 mg oral tablet (20 sources)l-TriiodothyronineStart: 07-66-3043gxrm 1 tablet by mouth once daily in the morningLiothyronine 5 mcg tablet Active 5 MCG PO Every morning June 15, 2024 10:30am Complies with drug therapyStart: 12-05-2021 End: 14-43-6795pcmg 2 tablets by mouth once dailyLiothyronine 5 [...] oral tablet (20 sources)Angiotensin Converting Enzyme InhibitorStart: 41-53-1032cmgu 1 tablet by mouth in the morninglisinopriL (PRINIVIL,ZESTRIL) 20 mg tablet Take 1 tablet (20 mg total) by mouth in the morning. 01/17/2024 ActiveStart: 12-17-2023 End: 74-43-7293ugci 1 tablet by mouth once dailyLisinopril 20 mg tablet Discontinued 0 .ROUTE .COMPLEX 90 December 17, 2023 5:41pm June 15, 2024 10:35am TAKE 1 TABLET BY MOUTH ONCE DAILYStart: 71-34-7820kzcb 1 tablet by mouth every twenty-four hoursLisinopril 10 MG 1 tablet Orally Once a day for 90 day(s) Jan, ActiveStart: 01-15-2022 End: 96-37-0627qkab 1 tablet by mouth in the morninglisinopriL (PRINIVIL,ZESTRIL) 5 mg tablet Take 1 tablet (5 mg total) by mouth in the morning. 30 tablet 11 01/15/2022 01/17/2024 DiscontinuedStart: 10-09-2019 End: 54-07-2554kzne 1 tablet by mouth once dailyLisinopril 40 mg tablet Discontinued 40 MG PO Daily 90 90 December 09, 2023 11:27am December 17, 2023 5 :42pmtake 1 tablet by mouth every twenty-four hoursLisinopril 20 MG 1 tablet Orally Once a day for 90 days ActiveMagnesium (20 sources)MAGNESIUM PO ActiveMAGNESIUM PO Magnesium Activemagnesium oxide 400 mg oral tablet (20 sources)Start: 15-72-3989lxyw 1 tablet by mouth three times dailymagnesium oxide (MAGOX) 400 mg tablet Indications: Paroxysmal atrial fibrillation (CMS- HCC) , Localized edema TAKE 1 TABLET BY MOUTH THREE TIMES DAILY 45 tablet 03/12/2025 ActiveStart: 07-09-2023 End: 55-85-4519rhac 1 tablet by mouth three times dailyMagnesium Oxide 400 mg (241.3 mg magnesium) tablet Active 400 MG PO Three times daily June 15, 2024 10:34am Complies with drug therapyStart: 10-09-2019 End: 52-65-0604opzw 1 tablet by mouth once dailyMagnesium Oxide [...] (20 sources)Multi For Her 50+ - Orally Ggmszpzujtfyovrpuc-utjd-vyfreuvo-folic acid (Centrum) chewable tablet (20 sources)hfurtdpzgedv-qybq-mcwmgbft-folic acid (Centrum) chewable tablet Chew 1 tablet Daily Cgbhtlwuhppwhnjqfa-eaky-yofenlqw-folic acid (Centrum) chewable tablet Chew 1 tablet in the morning. Activenitroglycerin 0.4 mg sublingual tablet (8 sources)Nitrate VasodilatorStart: 10-09-2019 End: 21-26-3040Bnivfswtkrnkd 0.4 mg tablet, sublingual Active 0.4 MG SUBLINGUAL every 5 to 15 minutes as needed for Chest Pain June 15, 2024 10:36am Complies with drug therapypantoprazole 40 mg delayed release oral tablet (20 sources)Proton Pump InhibitorStart: 43-05-2175smma 1 tablet by mouth once dailyPantoprazole 40 mg tablet,delayed release (DR/EC) Active 40 MG PO Daily June 15, 2024 12:00amComplies with drug therapyPANTOPRAZOLE SODIUM PO ActivePANTOPRAZOLE SODIUM PO Pantoprazole Sodium ActivePantoprazole 40 mg tablet,delayed release (DR/EC) (1 source)Start: 29-62-1116etuc 1 tablet by mouth once dailyPantoprazole 40 [...] Do not crush, chew, or split. Activeretacrit 27415 unit/ml solution (5 sources)Retacrit 63847 UNIT/ML as directed Injection ActiveSennosides- Docusate Sodium [...] mg oral tablet (20 sources)BisphosphonateStart: 10-09-2019 End: 23-47-8536fcss 1 tablet by mouth every weekAlendronate (Fosamax) [...] mg oral tablet (6 sources)Start: 10-09-2019 End: 69-44-7775Fvtiplp Carbonate (Calcium 500) 500 mg calcium (1,250 mg) Tablet Discontinued 800 MG PO Daily October 09, 2019 1:00am June 15, 2024 10:35amtake 1 tablet by mouth every twenty-four hoursCalcium 600 MG 1 tablet with meals Orally Once a day Activefurosemide 20 mg oral tablet (20 sources)Loop DiureticStart: 01-14-2025 End: 75-26-9232rkdt 2 tablets by mouth once daily in the morningFurosemide 20 mg tablet Discontinued 40 MG PO Every morning January 14, 2025 9:41am January 14, 2025 9:42amStart: 01-14-2025 End: 17-20-7597kxla 1 tablet by mouth once daily in the morningFurosemide 20 mg tablet Discontinued 20 MG PO Every morning January 14, 2025 9:41am January 14, 2025 9:41amStart: 87-07-4738mamb 1 tablet by mouth once dailyFurosemide 40 mg tablet Active 40 MG PO Daily January 14, 2025 12:00am Complies with drug therapyStart: 06-17-2024 End: 51-66-8855llau 1 tablet by mouth once dailyFurosemide 20 mg tablet Discontinued 0 .ROUTE .COMPLEX December 12, 2024 2:53pm January 14, 2025 9:25am TAKE 1 TABLET BY MOUTH DAILYStart: 12-25-2023 End: 23-24-1058wmla 1 tablet by mouth once dailyFurosemide 20 mg tablet Discontinued 20 MG PO Daily December 25, 2023 3:14pm June 17, 2024 10:58am End: 09-51-5066jweu 1 tablet by mouth twice dailyfurosemide (LASIX) 20 mg tablet Take 1 tablet (20 mg total) by mouth 2 (two) times a day. 01/17/2024 Discontinued (Therapy completed)take 1 tablet by mouth once dailyFurosemide 20 mg TAKE 1 TABLET BY MOUTH ONCE DAILY for 90 ActivehydroCHLOROthiazide 25 mg oral tablet (20 sources)Thiazide DiureticStart: 10-09-2019 End: 21-60-8309ssev 2 tablets by mouth once dailyHydrochlorothiazide 25 mg Tablet Discontinued 50 MG PO Daily October 09, 2019 1:00am December 04, 2023 9:54amHYDROCHLOROTHIAZIDE PO ActiveHYDROCHLOROTHIAZIDE PO hydroCHLOROthiazide Active3 ml insulin detemir 100 unt/ml pen injector (20 sources)Insulin AnalogStart: 06-15-2024 End: 74-06-5840Xxginec Detemir U-100 (Levemir Flextouch U100 Insulin) 100 unit/mL (3 mL) insulin pen Discontinued 30 UNIT SUBCUT Twice daily June 15, 2024 10:33am January 14, 2025 9:23amStart: 69-60-5680qslnuca detemir U-100 (LEVEMIR) 100 unit/mL injection Inject 30 units in the morning and 25 units at night - closely monitor blood sugars and follow up with your PCP in 1-2 weeks 1 [address] 01/03/2021 ActiveStart: 10-09-2019 End: 00-85-6190Ztsambb Detemir U-100 (Levemir Flextouch U100 Insulin) 100 unit/mL (3 mL) Insulin Pen Discontinued 70 UNIT SUBCUT Twice daily October 09, 2019 1:00am June 15, 2024 10:37am took 35 units this am End: 17-03-3395owrapgv detemir (Levemir FlexPen) 100 UNIT/ML pen inject by subcutaneous route as per insulin sliding scale protocol Subcutaneous 07/13/2024 Discontinued (Formulary change)Levemir FlexTouch 100 UNIT/ML As Directed Subcutaneous 50 units twice a day Activelabetalol hydrochloride 200 mg oral tablet (20 sources)beta-Adrenergic BlockerStart: 10-09-2019 End: 56-58-0476zyye 2 tablets by mouth once daily in the morningLabetalol 200 mg Tablet Discontinued 400 MG PO Every morning October 09, 2019 1:00am December 04, 2023 9:53amStart: 10-09-2019 End: 29-53-0319Bnewbqhzs 200 mg Tablet Discontinued 450 MG PO Daily at bedtime October 09, 2019 1:00am December 04, 2023 9:53amLABETALOL HCL PO labetalol Activemeloxicam 15 mg oral tablet (1 source)Nonsteroidal Anti-inflammatory DrugStart: 12-30-2023 End: 87-95-2483fhws 1 tablet by mouth in the morningmeloxicam (MOBIC) 15 mg tablet Take 1 tablet (15 mg total) by mouth in the morning. 12/30/202301/16 DiscontinuedMULTIVITAMIN ORAL (3 sources) End: 42-57-6712WNELTNRYUXAR ORAL Take by mouth daily. 01/17/2024 Discontinued (Therapy completed)MULTIVITAMIN ORAL Take by mouth daily. ActiveMULTIVITAMIN ORAL Take by mouth daily. 0 NiwmpvFwtsphnfxjrn-Jhlb-Tkjcs Acid (Centrum) 18-400 mg-mcg Tablet (4 sources)Start: 10-09-2019 End: 26-28-8956kspc 1 tablet by mouth once pmfykKmngqmlhitwb-Ttrm-Myeim Acid (Centrum) 18-400 mg-mcg Tablet Discontinued 1 TAB PO Daily October 09, 2019 1:00am June 15, 2024 10:35amNitrofurantoin Monohyd/M-Cryst 100 mg capsule (1 source)Start: 09-10-2024 End: 18-89-0767wosl 1 capsule by mouth twice dailyNitrofurantoin Monohyd/M-Cryst 100 mg capsule Discontinued 100 MG PO Twice daily September 1041:00am September 10, 2024 10:28amnitrofurantoin, macrocrystals 25 mg / nitrofurantoin, monohydrate 75 mg oral capsule (3 sources)Nitrofuran AntibacterialStart: 09-10-2024 End: 41-23-6320imfn 1 capsule by mouth twice dailyNitrofurantoin Monohyd/M-Cryst 100 mg capsule Discontinued 100 MG PO Twice daily September 1041:00am September 10, 2024 10:28amRETACRIT INJECTION (20 sources)Start: 35-72-3417SDDULLTU INJECTION Nov, 1000 mLStart: 79-61-8050UEWNMUHQ INJECTION Oct, 1000 mLStart: 40-47-7019SYDBSSCD INJECTION Oct, 1000 mLStart: 12-95-1215FTLAGDCJ INJECTION Aug, 1000 mLStart: 59-26-8504JPVBKSST INJECTION Aug, 1000 mLStart: 08-01-2023 RETACRIT INJECTION Jul, 1000 mLStart: 70-99-4124OKNIOJJG INJECTION Jul, 1000 mLStart: 27-95-1874QRBRERIP INJECTION Jun, 1000 mLStart: 82-45-1307EPLXSAAX INJECTION May, 1000 mLStart: 35-59-2149VRXEZMNW INJECTION Apr, 1000 mLStart: 15-20-2981FMVFCGZT INJECTION Apr, 1000 unitsStart: 24-68-3367OYKLRBWA INJECTION Apr, 1000 UStart: 00-68-1664Wfohw: 81-54-7975Zwtuu: 43-48-8229MCJTOVDO INJECTION Mar, 1000 mLStart: 92-87-6568Rafpk: 77-32-0653TKIBUIKZ INJECTION Jan, 1000 mL Start: 93-41-0650Oqwlu: 63-67-1043LSHOJRBR INJECTION Dec, 1000 mLStart: 94-74-2599Wpkhz: 26-82-9573PRZRGUXH INJECTION Oct, 1000 mLStart: 16-53-4072Rcdpr: 49-01-4412SDZCSXAK INJECTION Sep, 1000 mLStart: 91-43-3086Ryobc: 57-69-3570LIRPFAGF INJECTION Aug, 1000 mLStart: 68-85-8762HZGBNZOI INJECTION Jun, 1000 unitsStart: 27-47-6104Qpjrn: 16-75-8291AMXIDBIY INJECTION Jun, 1000 UStart: 48-81-9310Aonhk: 54-61-1253MFTRCVNH INJECTION May, 1000 mLsimvastatin 80 mg oral tablet (4 sources)HMG-CoA Reductase InhibitorStart: 10-09-2019 End: 80-23-1982fwee 1 tablet by mouth once daily at bedtimeSimvastatin 80 mg tablet Discontinued 80 MG PO Daily at bedtime October 09, 2019 1:00am December 04, 2023 9:46am Problems Active Problems Problem ClassificationProblemDateDocumented DateEpisodic/ChronicAcute bronchitis (4 sources)Acute bronchitis, unspecified; Translations: [ACUTE BRONCHITIS UNSPECIFIED]Onset: 61-12-8736FdoljohuIqzatcvbbpuyat/social admission (10 sources)Patient encounter status; Translations: [Dietary counseling and surveillance]64-76-3572IykibcgvGqnxrsv dysrhythmias (15 sources)Paroxysmal atrial fibrillation; Translations: [Atrial fibrillation] Onset: 675872-10-3714XrhdjpyIwxzjoe kidney disease (20 sources)Chronic kidney disease stage 3; Translations: [Chronic kidney disease, stage 3 (moderate)]Onset: 01-18-2022 Resolved: 47-03-2160JptrwduAbzviaywujz and hemorrhagic disorders (2 sources)Senile purpura; Translations: [Other nonthrombocytopenic purpura] 51-04-4676ZeirillqWkbcrbiquk heart failure; nonhypertensive (1 source)Unspecified diastolic (congestive) heart failure; Translations: [UNSPECIFIED DIASTOLIC HEART FAILURE]Onset: 92-40-5121UcnqtllTojgqugs atherosclerosis and other heart disease (20 sources)Other forms of angina pectoris; Translations: [Atherosclerotic heart disease of [place] coronary artery without angina pectoris]Onset: 12-28-2020 34-82-2189CgzhdljBlhomvpseg and other anemia (20 sources)Anemia of renal disease; Translations: [Anemia in chronic kidney disease]41-72-8702EbkfncxPmsmyynxfa and other anemia (20 sources)Anemia in chronic kidney disease; Translations: [ANEMIA IN CHRONIC KIDNEY DISEASE]Onset: 01-18-2022 Resolved: 88-96-1696YbkrvenUqsbkvqwqv and other anemia (20 sources)Iron deficiency anemia; Translations: [Iron deficiency anemia, unspecified]EpisodicDiabetes mellitus with complications (20 sources)Type 2 diabetes mellitus; Translations: [Type 2 diabetes mellitus with diabetic chronic kidney disease]Onset: 01-18-2022 Resolved: 72-99-2396VldfsupSuqedvdv mellitus without complication (11 sources)Type 2 diabetes mellitus without complication; Translations: [Type 2 diabetes mellitus without complications]47-65-0151RuwwvexXerykufer of lipid metabolism (20 sources)Mixed hyperlipidemia; Translations: [Mixed hyperlipidemia]Onset: 901912-21-7553OhffobnBjtkdyuvu hypertension (20 sources)Hypertensive disorder; Translations: [Essential (primary) hypertension]Onset: 928483-75-9459XtisirnIrawy and electrolyte disorders (8 sources)HyperkalemiaEpisodicGenitourinary symptoms and ill-defined conditions (15 sources)Dysuria; Translations: [Microalbuminuria]Onset: EpisodicGout and other crystal arthropathies (20 sources)Chronic gouty arthritis; Translations: [Idiopathic chronic gout, unspecified site, without tophus (tophi)]Onset: 01-18-2022 Resolved: 72-34-1030KqbqkrwAfpdz valve disorders (4 sources)Nonrheumatic mitral (valve) insufficiency; Translations: [Rheumatic disorders of both mitral and aortic valves]Onset: 58-19-6835CkcjhnpGgmjwpcppgoo with complications and secondary hypertension (20 sources)Hypertensive renal disease; Translations: [Hypertensive chronic kidney disease with stage 1 throughstage 4 chronic kidney disease, or unspecified chronic kidney disease]Onset: 11-23-2020 Resolved: 95-90-9852QvzdxsbSnjiovr (2 sources)Onychomycosis; Translations: [Tinea unguium]45-98-1599Ksnlpvsv Nutritional deficiencies (8 sources)Vitamin D deficiency; Translations: [Vitamin D deficiency, unspecified]80-44-2594QqxxrddGmddyyvknahliq (9 sources)Arthritis; Translations: [Unspecified osteoarthritis, unspecified site]46-50-4019FvgcxiqRpojl aftercare (8 sources)Long-term current use of insulin; 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]79-64-0693GpuayuyoQdytu and ill-defined heart disease (2 sources)Cardiomegaly; Translations: [Cardiomegaly]Onset: 78-47-3348Umvlppr Other circulatory disease (2 sources)Arterial, arteriole and capillary disease; Translations: [Disorder of arteries and arterioles, unspecified]ChronicOther connective tissue disease (4 sources)Pain in right foot; Translations: [PAIN IN RIGHT FOOT]Onset: 08-18-0071PlfzgqbgYtdhu connective tissue disease (1 source)Pain in left foot; Translations: [PAIN IN LEFT FOOT]Onset: 11-25-2022 EpisodicOther connective tissue disease (2 sources)Pain in both feet; Translations: [Pain in right foot]06-25-2024 EpisodicOther diseases of kidney and ureters (20 sources)Secondary hyperparathyroidism; Translations: [Secondary hyperparathyroidism of renal origin]26-48-8284WzcvjaeZtosi diseases of kidney and ureters (16 sources)Secondary hyperparathyroidism of renal origin; Translations: [Secondary hyperparathyroidism (of renal origin)]Onset: 01-18-2022 Resolved: 30-87-5289FvhwnhrXaxci lower respiratory disease (5 sources)Shortness of breath; Translations: [Dyspnea]Onset: 01-17-2024 09-00-6459LsrnmpivOnzbs lower respiratory disease (9 sources)Dyspnea; Translations: [Dyspnea, unspecified]20-87-4312PaybjwyyOmyus nutritional; endocrine; and metabolic disorders (20 sources)Hypomagnesemia; Translations: [Hypomagnesemia]ChronicOther nutritional; endocrine; and metabolic disorders (20 sources)Obese class I; Translations: [Body mass index (BMI) 31.0-31.9, adult]ChronicOther nutritional; endocrine; and metabolic disorders (18 sources)Body mass index 30+ - obesity; Translations: [Obesity, unspecified] Onset: 030604-88-9813NkpzugyDovhr nutritional; endocrine; and metabolic disorders (9 sources)Obesity; Translations: [Obesity, unspecified]Onset: 01-15-2022 35-80-0385DlootlwKaniv screening for suspected conditions (not mental disorders or infectious disease) (4 sources)Encounter for screening mammogram for malignant neoplasm of breast; Translations: [ENC SCR MAMMO MALIG NEOPLASM BREAST]Onset: 12-99-2140Dikhuqhy Other skin disorders (2 sources)Callosity; Translations: [Corns and callosities]71-54-2965Brropczb Other skin disorders (2 sources)Inflamed seborrheic keratosis; Translations: [Inflamed seborrheic keratosis]69-26-9032XpzdqmimXlzvj skin disorders (2 sources)Seborrheic keratosis; Translations: [Other seborrheic keratosis] 27-14-0642FjmdijfaOejzi skin disorders (2 sources)Lentiginosis; Translations: [Other melanin hyperpigmentation] 61-07-5124QfmkwpfmJqdrwaumlf and visceral atherosclerosis (4 sources)Peripheral vascular disease, unspecified; Translations: [Peripheral arterial disease]96-46-7607JarqjaeEpsplnkl codes; unclassified (1 source)Family history of malignant neoplasm of breast; Translations: [FAMILY HX MALIG NEOPLASM OF BREAST]Onset: 54-82-1262PbouugcnDclwiaoz codes; unclassified (1 source)Family history of malignant neoplasm of trachea, bronchus and lung; Translations: [FAM HX MALIG NEOPLSM TRACH BRON LNG]Onset: 04-75-2186Qtmgeiof Residual codes; unclassified (1 source)Localized edema; Translations: [Localized edema]Onset: 01-17-2024 EpisodicResidual codes; unclassified (4 sources)Localized edema; Translations: [Localized edema]27-11-3525Vompxbnk Thyroid disorders (8 sources)Pema thyroiditis; Translations: [Autoimmune thyroiditis] 84-81-2556WagqqtyQbezstogcbbb (3 sources)CONTACT W/AND (SUSP) EXPOS COVID-19; Translations: [CONTACT W/AND (SUSP) EXPOS COVID-19]Onset: 87-30-4895Ujorywohuihc (3 sources)OTHER LOW BACK PAIN; Translations: [OTHER LOW BACK PAIN]Onset: 31-29-4500Ojzvpflknfjn (1 source)Hospital Follow-upOnset: 01-17-2024 Past or Other Problems Problem ClassificationProblemDateDocumented DateEpisodic/ChronicBlindness and vision defects (1 source)Unspecified visual disturbance; Translations: [UNSPECIFIED VISUAL DISTURBANCE]Onset: 80-52-7269HrzuhbeqPitasfsinu associated with dizziness or vertigo (1 source)Dizziness and giddiness; Translations: [DIZZINESS AND GIDDINESS]Onset: 57-70-5078QcivzukjRsdtuukp atherosclerosis and other heart disease (1 source)Presence of aortocoronary bypass graft; Translations: [Presence of aortocoronary bypass graft]Onset: 94-75-1326ZldeaiuhYfhseoe and fatigue (2 sources)Other fatigue; Translations: [Weakness]Onset: 93-90-8807WmscpeybSlla disorders (9 sources)Mood disordersOnset: 619637-35-6757Famtyplbdrh chest pain (2 sources)Chest pain; Translations: [Chest pain, unspecified]96-69-4151Suujhbii Other circulatory disease (4 sources)Hemorrhage, not elsewhere classified; Translations: [HEMORRHAGE NOT ELSEWHERE CLASSIFIED]Onset: 79-79-4510KtzemfejVvawi circulatory disease (1 source)Hypotension, unspecified; Translations: [HYPOTENSION UNSPECIFIED] Onset: 90-30-2238JqugyfpoSgotr fractures (4 sources)Collapsed vertebra, not elsewhere classified, lumbar region, subsequent encounter for fracture withdelayed healing; Translations: [COLLAPSED VERT NEC LUMB SUB DLAY HL]Onset: 06-58-9206CqnfzsbaYthfz inflammatory condition of skin (2 sources)Granuloma annulare; Translations: [Granuloma annulare]06-04-2024 EpisodicOther lower respiratory disease (1 source)Shortness of breath; Translations: [Shortness of breath]Onset: 90-31-1189KribzsmdVlyux skin disorders (2 sources)Eruption; Translations: [Rash and other nonspecific skin eruption] 03-76-8199QgxjskxrHjqpanpe codes; unclassified (1 source)Procedure and treatment not carried out due to patient leaving prior to being seen by health care provider; Translations: [PROC AND TX NOT CARRIED OUT PT LEAVE]Onset: 27-68-4313FvzyoqctDyopidwbziwv (1 source)CONTACT W/AND (SUSP) EXPOS COVID-19; Translations: [CONTACT W/AND (SUSP) EXPOS COVID-19]Onset: 07-10-4442Gmjgskwerjgh (1 source)OTHER LOW BACK PAIN; Translations: [OTHER LOW BACK PAIN]Onset: 05-21-2022 Results Test NameValueInterpretationReference RangeFacilityOffice Visiton 08-02-2025 Follow-up [id number] Kylah Berger 1945 F Date Provider Department Center 08/02/2025 [id number], ADAM ANNIA [facility] Family History Family history unknown: Yes Family Status - Relation Status Age at Mother Father Level of Service:99397 [place] OFFICE/OUTPATIENT ESTABLISHED MOD MDM 30 MIN Reason for Visit and Comments: Follow-up [987218] - Patient is here today for a 6 month follow up appointment. Patient states she has been having problems with her blood pressure going really low, down into the 90/70, patient states when it goes low she's done for the day, causes a lot of fatigue. Patient denies chest pain, palpitations/racing heart, SOB/LOZANO, edema, Coronary Artery Disease [187] Hypertension [026755] Atrial Fibrillation [80] Disorder of carotid artery [Other] CABG x 4 vessel [Other] Fatigue [46] - Due to low blood pressure, Dizziness [602898] - Due to low blood pressureNormalUniversity of Ut Southwestern William [facility]. Clements Jr. University HospitalErythrocyte distribution width Auto (RBC) [Ratio]Ordered By: Ron Martinez on 88-02-3906Gddzpvpmurf distribution width (RBC) [Ratio]14.9 %11.0-15.0 [facility] HospitalGlomerular filtration rate (GFR) estimation in non- AmericanOrdered By: Ron Martinez on 82-36-4119QKO/1.73 sq M.predicted among non-blacks MDRD (S/P/Bld) [Vol rate/Area]22 mL/min/{1.73_m2}Low>=60 mL/min/1.73m 2FAshtabula General HospitalHematocrit Auto (Bld) [Volume fraction]Ordered By: Ron Martinez on 70-30-4593Itpnhbhacv (Bld) [Volume fraction] 30.1 %Low36.0-48.0[facility] HospitalHemoglobin [Mass/volume] in BloodOrdered By: Ron Martinez on 96-86-4598Jsejgjiyyp (Bld) [Mass/Vol]10.3 g/dL Low12.0-16.0[facility] HospitalIron binding capacity [Mass/volume] in Serum or PlasmaOrdered By: Ron Martinez on 35-88-3521Zvqt binding capacity [Mass/Vol]210.0 ug/xYVek386.0-450.0[facility] HospitalIron saturation [Mass Fraction] in Serum or PlasmaOrdered By: Ron Martinez on 21-11-7071Zafs saturation [Mass fraction]22.4 %[facility] Laboratory - Chemistry and Chemistry - challengeOrdered By: Ron Martinez on 89-30-7412Qfwztgi [Mass/Vol]3.6 g/dL3.4-5.0[facility] Calcium [Mass/Vol]9.5 mg/dL8.5-10.1FAshtabula General HospitalChloride [Moles/Vol]101 mmol/G16-281MzoqhuhppCincinnati Shriners HospitalCO2 [Moles/Vol]26.4 mmol/L21.0-32.0[facility] HospitalCreatinine [Mass/Vol]2.17 mg/dL High0.55-1.02[facility] HospitalFerritin [Mass/Vol]542.0 ng/mLHigh 8.0-252.0[facility] HospitalGFR/1.73 sq M.predicted MDRD (S/P/Bld) [Vol rate/Area]26 mL/min/{1.73_m2}Low>=60 mL/min/1.73m 2FAshtabula General HospitalGlucose [Mass/Vol]173 mg/cMFjja02-793JmkpavlhkCincinnati Shriners HospitalIron [Mass/Vol]47.0 ug/dLLow50.0-170.0[facility] Magnesium [Mass/Vol]2.0 mg/dL1.8-2.4FAshtabula General HospitalPotassium [Moles/Vol]4.1 mmol/L3.5-5.1FDelaware County Hospitalodium [Moles/Vol] 137 mmol/R354-758TwauqekeuCincinnati Shriners HospitalUrate [Mass/Vol]4.8 mg/dL 2.6-6.0[facility] HospitalUrea nitrogen [Mass/Vol]37.0 mg/dLHigh 7.0-18.0[facility] HospitalUrea nitrogen/Creatinine [Mass ratio] 17.1 mg/mgCincinnati Shriners HospitalBilirubin Ql (U)NegativeNEGATIVE [facility] HospitalGlucose (U) [Mass/Vol]NegativeNEGATIVECincinnati Shriners HospitalKetones Ql (U)NegativeNEGATIVECincinnati Shriners HospitalpH (U)5.5 [pH]5.0-9.0The Jewish Hospitalpecific gravity (U) [Rel density]1.0201.005-1.025[facility] HospitalUrobilinogen Qn (U)0.2 {Esau'U}/dL0.2-1.0[facility] HospitalLaboratory - Specimen informationOrdered By: Ron Martinez on 87-05-4319Eynqbbincm (U)SLIGHTLY CLOUDYAbnormalCLEClermont County HospitalColor (U)LT. YELLOWYELGreene Memorial HospitalLaboratory - UrinalysisOrdered By: Ron Martinez on 17-65-3102Dmkkpglud esterase Test strip Ql (U)MODERATEAbnormalNEGATIVE [facility] HospitalMucus Ql (Urine sed)NONE SEENNONE SEENCincinnati Shriners HospitalNitrite Ql (U)NegativeNEGATIVECincinnati Shriners HospitalProtein (U) [Mass/Vol]148.7 mg/dLHigh<=11.9[facility] HospitalProtein Ql (U)100 mg/dLAbnormalNEG/TRACECincinnati Shriners Hospital Leukocytes [#/volume] corrected for nucleated erythrocytes in Blood by Automated counOrdered By: Ron Martinez on 67-06-4167QKV corrected for nucl RBC Auto (Bld) [#/Vol]7.4 10 3/uL4.0-11.0[facility] Auto (RBC) [Entitic mass]Ordered By: Ron Martinez on 26-89-1305WMD (RBC) [Entitic mass]31.3 pg26.7-34.0[facility] HospitalMCHC Auto (RBC) [Mass/Vol]Ordered By: Ron Martinez on 66-80-4462BEIW (RBC) [Mass/Vol]34.2 g/dL29.9-35.2FAshtabula General HospitalMCV Auto (RBC) [Entitic vol]Ordered By: Ron Martinez on 66-46-1436FUZ (RBC) [Entitic vol]91.5 fL81.0-99.0[facility] HospitalNo Panel InformationOrdered By: Ron Martinez on 47-85-085529443128-Qizotzf Vitamin D Total30.2 ng/mLCincinnati Shriners HospitalComment on above:<20 ng/mL Vit D ykcbpqiqo80-<30 ng/mL Vit D qcfscitkqvgv52-397 ng/mL Vit D sufficient>100 ng/mL Potential ToxicityParathyroid Hormone (Intact)77 pg/mL Ttvyqjfb71-41JyvbropoeCincinnati Shriners HospitalComment on above:Performed at: - [facility] [address] [id number] Director: Ashok Benson PhD, Phone: [phone] Level4.1 mg/dL2.6-4.7FAshtabula General HospitalUrine BacteriaSMALL #/HPFAbnormalNONE [facility] CenterUrine Occult BloodNegativeNEGATIVECincinnati Shriners HospitalUrine Other CastsNONE SEEN #/LPFNONE [facility] CenterUrine Other CrystalsNone Seen #/HPFNone [facility] CenterUrine Random Ilulzguneh304.87 mg/dL20.00-300.00[facility] HospitalUrine RBC2-5 #/HPFAbnormal0-2FAshtabula General Hospital Urine Squamous Epithelial CellsMODERATE #/LPFAbnormalNONE/RARECincinnati Shriners HospitalUrine WBC>100 #/HPFAbnormalNONE [facility] Cancer CenterPlatelet mean volume Auto (Bld) [Entitic vol]Ordered By: Ron Martinez on 08-76-4640Wcqdzfrf mean volume (Bld) [Entitic vol]9.6 fL9.5-13.5FAshtabula General HospitalPlatelets Auto (Bld) [#/Vol]Ordered By: Ron Martinez on 91-96-4144Wfouksuzn (Bld) [#/Vol]220 10 3/aZ878-756PbptofzaxCincinnati Shriners HospitalRBC Auto (Bld) [#/Vol]Ordered By: Ron Martinez on 23-99-8931AJH (Bld) [#/Vol]3.29 10 6/uLLow4.20-5.40The Jewish Hospitalerum or plasma anion gap determinationOrdered By: Ron Martinez on 38-64-4164Iuvul gap [Moles/Vol]13.7 mmol/LFAshtabula General HospitalUrine protein/creatinine ratioOrdered By: Ron Martinez on 77-08-4564Qbiheut/Creatinine (U) [Ratio]1.02 [facility] HospitalOrders Onlyon 15-78-1714Xmcleo [id number] Kylah Berger 1945 F Date Provider Department Center 06/17/2025 [id number], HISTORICAL CARD Hany Stacy Family History Family history unknown: YesNormalUniversity of Ut Southwestern William [facility]. Clements Jr. University HospitalGlucose (Bld) [Mass/Vol]on 66-98-3813Crqykrv Blood, FJK477 mg/dLResearch Medical Center Laboratory - Hematology and Cell countson 83-13-1638MhN7i (Bld) [Mass fraction] 7.6 %[facility] HealthcareNo Panel Informationon 50-18-4618VPTB HealthcareUrine Cultureon 70-50-0667Svnwopdo identified Cx Nom (U)ORGANISM: Escherichia coli (ESBL) (O:ESCCOLESBL) [place] Count >100,000 Aerobic AIDEN Charge (NMIC56) SUSCEPTIBILITY ORGANISM: O:ESCCOLESBL ANTIBIOTIC INTERPRETATION AIEDN Amikacin S <16 Amoxacillin/K Clavulanate S <8 [...] RESISTANT TO ALL B-LACTAM DRUGS. PERFORMED BY: [facility] [address] [place] [address] PATHOLOGIST CHECKER LOADER CINTIA GLASGOW M.D.[facility] Physician GroupComment on above: Performed By: #### CUU #### [address] StreetUrine cultureOrdered By: Dhruv Gutierres on 67-34-1144Pjnybvkx identified Cx Nom (U)Escherichia coli (ESBL)AbnormalCincinnati Shriners HospitalUrine Cultureon 45-30-4789Wvsjwycr identified Cx Nom (U)ORGANISM: Escherichia coli (ESBL) (O:ESCCOLESBL) [place] Count >100,000 Aerobic AIDEN Charge (NMIC56) SUSCEPTIBILITY [...] RESISTANT TO ALL B-LACTAM DRUGS. PERFORMED BY: [facility] [address] [place] [address] PATHOLOGIST CHECKER LOADER CINTIA GLASGOW M.D.NormalTallahassee Memorial Healthcare Physician GroupComment on above: Performed By: #### CUU #### [facility] [address] StreetUrine cultureOrdered By: Dmitriy Lynne on 04-21-2025 Bacteria identified Cx Nom (U)Escherichia coli (ESBL)AbnormalCincinnati Shriners HospitalNo Panel Informationon 53-29-4756DRFE HealthcareOffice Visiton 21-32-1402Eoztuo-up [id number] Kylah Berger 1945 F Date Provider Department Center 02/25/2025 [facility]-STEFANO CATHERINE CARD [facility] Family History Family history unknown: Yes Level of Service:43438 [place] OFFICE/OUTPATIENT ESTABLISHED MOD MDM 30 [facility] CampusGlucose (Bld) [Mass/Vol]on 82-41-4642Elhwhlh Blood, HNR348 mg/dLNOSD HealthcareLaboratory - Hematology and Cell countson 75-46-6984SrE2u (Bld) [Mass fraction]6.6 %[facility]OM[facility] HealthcareNo Panel Informationon 46-22-4595LOZE HealthcareErythrocyte distribution width Auto (RBC) [Ratio]on 15-40-1202Ctalmqpchxp distribution width (RBC) [Ratio]Erythrocyte distribution width [Ratio] by Automated gtvybNcgt42.0-15.0[facility] Estimated glomerular filtration rate (GFR) non- Americanon 01-05-2025 GFR/1.73 sq M.predicted among non-blacks MDRD (S/P/Bld) [Vol rate/Area]Estimated glomerular filtration rate (GFR) non- AmericanLow>=60 mL/min/1.73m 2 [facility] HospitalHematocrit Auto (Bld) [Volume fraction]on 99-57-5635Ffogiyrjne (Bld) [Volume fraction]Hematocrit [Volume Fraction] of Blood by Automated xnrfrTzo87.0-48.0[facility] HospitalHemoglobin [Mass/volume] in Bloodon 13-78-2215Kmdkwmsooh (Bld) [Mass/Vol]Hemoglobin [Mass/volume] in MwzsiSrq63.0-16.0[facility] HospitalIron binding capacity [Mass/volume] in Serum or Plasmaon 82-67-5191Euat binding capacity [Mass/Vol]Iron binding capacity [Mass/volume] in Serum or RjmzogSgi353.0-450.0 [facility] HospitalIron saturation [Mass Fraction] in Serum or Plasmaon 71-98-8660Zwed saturation [Mass fraction]Iron saturation [Mass Fraction] in Serum or PlasmaCincinnati Shriners HospitalLaboratory - Chemistry and Chemistry - challengeon 74-51-7123Rknxshg [Mass/Vol]3.3 g/dLLow 3.4-5.0[facility] HospitalCalcium [Mass/Vol]9.2 mg/dL8.5-10.1 [facility] HospitalChloride [Moles/Vol]105 mmol/F02-930VugpuhergCincinnati Shriners HospitalCO2 [Moles/Vol]24.4 mmol/L21.0-32.0[facility] HospitalCreatinine [Mass/Vol]1.89 mg/dLHigh0.55-1.02[facility] HospitalFerritin [Mass/Vol]499.0 ng/mLHigh8.0-252.0[facility] HospitalGFR/1.73 sq M.predicted MDRD (S/P/Bld) [Vol rate/Area]31 mL/min/{1.73_m2}Low>=60 mL/min/1.73m 2FAshtabula General HospitalGlucose [Mass/Vol]122 mg/nYMrgg71-647OyqjgtqvkCincinnati Shriners HospitalIron [Mass/Vol] 69.0 ug/dL50.0-170.0[facility] HospitalMagnesium [Mass/Vol]1.9 mg/dL1.8-2.4FAshtabula General HospitalPotassium [Moles/Vol]4.7 mmol/L 3.5-5.1FDelaware County Hospitalodium [Moles/Vol]141 mmol/L381-846 [facility] HospitalUrate [Mass/Vol]3.9 mg/dL2.6-6.0[facility] HospitalUrea nitrogen [Mass/Vol]35.0 mg/dLHigh7.0-18.0[facility] HospitalUrea nitrogen/Creatinine [Mass ratio]18.5 mg/mgCincinnati Shriners HospitalLaboratory - Urinalysison 07-94-0353Qaabxzx (U) [Mass/Vol]108.9 mg/dLHigh<=11.9[facility] HospitalLeukocytes [#/volume] corrected for nucleated erythrocytes in Blood by Automated counon 98-19-2064XEI corrected for nucl RBC Auto (Bld) [#/Vol]Leukocytes [#/volume] corrected for nucleated erythrocytes in Blood by Automated coun4.0-11.0[facility] CenterH Auto (RBC) [Entitic mass]on 13-00-9724TLY (RBC) [Entitic mass]MCH [Entitic mass] by Automated count26.7-34.0[facility] CenterHC Auto (RBC) [Mass/Vol]on 38-82-3016YNKI (RBC) [Mass/Vol]MCHC [Mass/volume] by Automated count29.9-35.2FAshtabula General HospitalMCV Auto (RBC) [Entitic vol]on 59-21-3526FCX (RBC) [Entitic vol]MCV [Entitic volume] by Automated count81.0-99.0[facility] HospitalNo Panel Information on 90-99-3202Nhalz Random Tofsjicbyz049.18 mg/dL20.00-300.00[facility]25-Hydroxy Vitamin D Total30.9 ng/mLCincinnati Shriners HospitalComment on above:<20 ng/mL Vit D aujhlgdgw45-<30 ng/mL Vit D seclwhafwjnk75-506 ng/mL Vit D sufficient>100 ng/mL Potential Toxicity Parathyroid Hormone (Intact)73 pg/kUZmgdrqnc81-41OqaobwtudCincinnati Shriners HospitalComment on above:Performed at: [facility] [place], [place] [id number] Director: Ashok Benson PhD, Phone: [phone] Phosphorus Level3.8 mg/dL2.6-4.7FAshtabula General HospitalPlatelet mean volume Auto (Bld) [Entitic vol]on 57-82-1747Evdvnvne mean volume (Bld) [Entitic vol]Platelet mean volume [Entitic volume] in Blood by Automated countLow9.5-13.5 [facility] HospitalPlatelets Auto (Bld) [#/Vol]on 01-05-2025 Platelets (Bld) [#/Vol]Platelets [#/volume] in Blood by Automated ftnam296-461 [facility] HospitalRBC Auto (Bld) [#/Vol]on 79-43-8372TXA (Bld) [#/Vol]Erythrocytes [#/volume] in Blood by Automated countLow4.20-5.40The Jewish Hospitalerum or plasma anion gap determinationon 35-55-4870Cblxr gap [Moles/Vol]Serum or plasma anion gap determinationCincinnati Shriners HospitalUrine protein/creatinine ratioon 29-05-5122Vmgeaye/Creatinine (U) [Ratio]Urine protein/creatinine ratioCincinnati Shriners HospitalOffice Visiton 76-00-1424Aviast-up [id number] Kylah Berger 1945 F Date Provider Department Center 11/27/2024 [id number] YOON ANNIA [facility] Family History Family history unknown: Yes Level of Service:47981 [place] OFFICE/OUTPATIENT ESTABLISHED MOD MDM 30 [facility] CampusGlucose (Bld) [Mass/Vol]Ordered By: Maria Antonia Mo on 52-03-8406Ulrerti Blood, XUP880 mg/dLNOMS HealthcareLaboratory - Hematology and Cell countson 38-68-5488GxH0z (Bld) [Mass fraction]7 %[facility] HealthcareNo Panel InformationOrdered By: Maria Antonia Mo on 16-27-3128OYAN HealthcareGlucose (Bld) [Mass/Vol]Ordered By: Maria Antonia Mo on 90-84-6344Trzupmz Blood, FKK708 mg/dLNOMS HealthcareNOMS HealthcareNo Panel Informationon 03-14-5394Rtem of biopsy: punch Informed consent: discussed and [...] 2 Specimen sent for: H&E Photo taken [facility] InformationOrdered By: Philomena Salter on 43-73-1651BFHMResearch Medical CenterPOCT EKn 61-96-8106QmqAaazqqSt. Rita's HospitalHEMOGRAM AND PLATELon 67-09-7099Hgdkthgwpd (Bld) [Volume fraction]28.8 %Critically low 36.0-48.0The [facility] Memorial HospitalComment on above:Performed By: #### HH #### [facility] [address] [place] [address] Dr. Ember TeagueHemoglobin (Bld) [Mass/Vol]9.6 g/dLCritically low12.0-16.0[facility] HospitalComment on above:Performed By: #### HH #### [facility] [address] [place] [address] Dr. Ember TeagueCENTRAL [facility] (RBC) [Entitic mass]30.7 qgCmxvig01.7-34.0The [facility] HospitalComment on above:Performed By: #### HH #### [facility] [address] [place] [address] Dr. Ember Villafuerte (RBC) [Mass/Vol]33.3 g/gPFfgvqj28.9-35.2The [facility] HospitalComment on above:Performed By: #### HH #### [facility] [address] [place] [address] Dr. Ember VillafuerteV (RBC) [Entitic vol]92.0 cBAcvspd08.0-99.0The [facility] HospitalComment on above:Performed By: #### HH #### [facility] [address] [place] [address] Dr. Ember TeaguePLT214 103/vuDavupq454-611Opa [facility] HospitalComment on above: Performed By: #### HH #### [facility] [address] [place] [address] Dr. Ember TeagueRBC3.13 106/ulCritically low4.20-5.40The [facility] HospitalComment on above:Performed By: #### HH #### [facility] [address] [place] [address] Dr. Ember TeagueWBC7.4 103/ulNormal4.0-11.0The [facility] HospitalComment on above: Performed By: #### HH #### [facility] [address] [place] [address] Dr. Ember TeagueMAGNESIUMon 12-46-1095Uauhtntqn [Mass/Vol]1.8 mg/dLNormal1.8-2.4 [facility] HospitalComment on above:Performed By: #### MG, RENAL #### [facility] [address] [place] [address] Dr. Ember TeageuRENAL FUNCTION PANELon 10-48-5720Dgqfycd [Mass/Vol]3.6 g/dLNormal 3.4-5.0The [facility] HospitalComment on above:Performed By: #### MG, RENAL #### [facility] [address] [place] [address] Dr. Ember TeagueCalcium [Mass/Vol]9.7 mg/dLNormal8.5-10.1[facility] Comment on above:Performed By: #### MG, RENAL #### [facility] [address] [address] [address] Ember TeagueChloride [Moles/Vol]105 mmol/EXklyxd48-884Coy [facility] Comment on above:Performed By: #### MG, RENAL #### [facility] [address] [place] [address] Dr. Ember TeagueCO2 [Moles/Vol]22.6 mmol/KMiltox05.0-32.0The [facility] Comment on above:Performed By: #### MG, RENAL #### [facility] [address] [place] [address] Dr. Ember TeagueCreatinine [Mass/Vol]2.18 mg/dLCritically high0.55-1.02The [facility] HospitalComment on above:Performed By: #### MG, RENAL #### [facility] [address] [place] [address] Dr. Pa ChangEGFR-AF ZIYLBOTF52 mL/min/1.73b7Bybbkjmxbs low>=60The [facility] HospitalComment on above:Performed By: #### MG, RENAL #### [facility] [address] [place] [address] Dr. Ember PedersenGFR-NON AF ONNLBSZG13 mL/min/1.26v8Jrurebsjhs low>=60The [facility] HospitalComment on above:Performed By: #### MG, RENAL #### [facility] [address] [place] [address] Dr. Ember TeagueGlucose [Mass/Vol]134 mg/dLCritically ukds20-899Urg [facility] HospitalComment on above:Performed By: #### MG, RENAL #### [facility] [address] [place] [address] Dr. Ember TeaguePhosphate [Mass/Vol]4.6 mg/dLNormal2.6-4.7The [facility] Comment on above:Performed By: #### MG, RENAL #### [facility] [address] [place] [address] Dr. Ember TeaguePotassium [Moles/Vol]5.1 mmol/LNormal3.5-5.1The [facility] Comment on above:Performed By: #### MG, RENAL #### [facility] [address] [place], [place] [address] Dr. Ember TeagueSodium [Moles/Vol]138 mmol/VXhprpf393-426Csl [facility] Comment on above:Performed By: #### MG, RENAL #### [facility] [address] [place], [place] [address] Dr. Ember TeagueUrea nitrogen [Mass/Vol]61.0 mg/dLCritically high7.0-18.0The [facility] HospitalComment on above:Performed By: #### MG, RENAL #### [facility] [address] [id number] Ember TeagueMG MAMM SCREEN 3D MAY CADon 38-69-8908QU MAMM SCREEN 3D MAY CAD Patient: KYLAH BERGER Exam Date: 12/17/2022 : 1945 Gender:F Ordering : DR DHRUV GUTIERRES . Admission #: [id number] Family : Order #: [id number] CLICK HERE TO VIEW EXAM RADIOLOGY REPORT [...] lung cancer at age 61. LOCATION: The [facility] BREAST COMPOSITION: Scattered areas fibroglandular [...] by: Beni Christie MD on 12/17/2022 at 11:59NormalThe [facility] FERRITINon 95-28-9270Bvqzxhqt [Mass/Vol]681.0 ng/mLCritically high8.0-252.0The [facility] HospitalComment on above:Performed By: #### PTHINT #### [facility] [address] [place] [address] Dr. Ember TeagueHEMOGRAM AND PLATELon 64-66-9002Dnhrmnxpde (Bld) [Volume fraction]27.1 %Critically low36.0-48.0The [facility] HospitalComment on above: Performed By: #### CVDTBH #### [facility] [address] [place] [address] Dr. Ember TeagueHemoglobin (Bld) [Mass/Vol]9.7 g/dLCritically low12.0-16.0The [facility] HospitalComment on above:Performed By: #### CVDTBH #### [facility] [address] [place] [address] Dr. Ember Villafuerte (RBC) [Entitic mass]31.4 akLhltsd42.7-34.0The [facility] HospitalComment on above:Performed By: #### CVDTBH #### [facility] [address] [place] [address] Dr. Ember Villafuerte (RBC) [Mass/Vol]35.8 g/dLCritically high29.9-35.2The [facility] HospitalComment on above:Performed By: #### CVDTBH #### [facility] [address] [place] [address] Dr. Ember Villafuerte (RBC) [Entitic vol]87.7 jCThkjkf75.0-99.0The [facility] HospitalComment on above:Performed By: #### CVDTBH #### [facility] [address] [place] [address] Dr. Ember TeaguePLT218 103/fvXcccjz143-618Shc [facility] HospitalComment on above: Performed By: #### CVDTBH #### [facility] [address] [address] [address] Ember TeagueRBC3.09 106/ulCritically low4.20-5.40The [facility] HospitalComment on above:Performed By: #### CVDTBH #### [facility] [address] [place] [address] Dr. Ember TeagueWBC6.6 103/ulNormal4.0-11.0The [facility] HospitalComment on above: Performed By: #### CVDTBH #### [facility] [address] [place] [address] Dr. Ember Amador AND TIBCon 12-10-2022% CMESFCXZWD18.2 %NormalThe [facility] HospitalComment on above:Performed By: #### PTHINT #### [facility] [address] [place] [address] Dr. Ember Amador [Mass/Vol]84.0 ug/fQCkhgvw21.0-170.0The [facility] Comment on above:Performed By: #### PTHINT #### [facility] [address] [place] [address] Dr. Ember TeagueTIBC GLZCOO297.0 ug/bOEomdcf874.0-450.0The [facility] Comment on above:Performed By: #### PTHINT #### [facility] [address] [place] [address] Dr. Ember TeagueXR FOOT MAY MIN 3 VIEWSon 19-46-1269UJ FOOT MAY MIN 3 VIEWS EXAMINATION: XR [...] Electronically authenticated by: BENI CHRISTIE Date: 2022-11-20 14:03[facility] CenterHEMOGRAM AND PLATELon 09-62-9605Ouxjmuihob (Bld) [Volume fraction]27.7 %Critically low36.0-48.0The [facility] HospitalComment on above: Performed By: #### RENAL #### [facility] [address] [place] [address] Dr. Ember TeagueHemoglobin (Bld) [Mass/Vol]10.0 g/dLCritically low12.0-16.0The [facility] HospitalComment on above:Performed By: #### RENAL #### [facility] [address] [place] [address] Dr. Ember Villafuerte (RBC) [Entitic mass]31.6 ioTqwtva59.7-34.0The [facility] HospitalComment on above:Performed By: #### RENAL #### [facility] [address] [place] [address] Dr. Ember VillafuerteHC (RBC) [Mass/Vol]36.1 g/dLCritically high29.9-35.2The [facility] HospitalComment on above:Performed By: #### RENAL #### [facility] [address] [place] [address] Dr. Ember VillafuerteV (RBC) [Entitic vol]87.7 zBHeuvfk81.0-99.0The [facility] HospitalComment on above:Performed By: #### RENAL #### [facility] [address] [place] [address] Dr. Ember TeaguePLT182 103/zpHubxit243-453Yhx [facility] HospitalComment on above: Performed By: #### RENAL #### [facility] [address] [place] [address] Dr. Ember TeagueRBC3.16 106/ulCritically low4.20-5.40The [facility] HospitalComment on above:Performed By: #### RENAL #### [facility] [address] [place] [address] Dr. Yilan ChangWBC6.8 103/ulNormal4.0-11.0The [facility] HospitalComment on above: Performed By: #### RENAL #### [facility] [address] [address] [address] Ember TeaguePROF CHEM 8 (BAS METB)on 66-94-3658Pcczx gap [Moles/Vol]17.6 mmol/LNormalThe [facility] HospitalComment on above:Performed By: #### CVDTBH #### [facility] [address] [address] [address] Ember TeagueCalcium [Mass/Vol]9.0 mg/dLNormal8.5-10.1The [facility] Comment on above:Performed By: #### CVDTBH #### [facility] [address] [place] [address] Dr. Ember TeagueChloride [Moles/Vol]104 mmol/NAolzsw64-416Isj [facility] Comment on above:Performed By: #### CVDTBH #### [facility] [address] [place] [address] Dr. Ember TeagueCO2 [Moles/Vol]22.2 mmol/JFhjtvf53.0-32.0[facility] Comment on above:Performed By: #### CVDTBH #### [facility] [address] [place] [address] Dr. Ember TeagueCreatinine [Mass/Vol]2.03 mg/dLCritically high0.55-1.02The [facility] HospitalComment on above:Performed By: #### CVDTBH #### [facility] [address] [place] [address] Dr. Pa ChangEGFR-AF CNCINZRL38 mL/min/1.35w7Aeereshuia low>=60The [facility] HospitalComment on above:Performed By: #### CVDTBH #### [facility] [address] [place] [address] Dr. Pa ChangEGFR-NON AF JMOWQCAG27 mL/min/1.63k0Ztgqlabksf low>=60The [facility] HospitalComment on above:Performed By: #### CVDTBH #### [facility] [address] [address] [address] Ember TeagueGlucose [Mass/Vol]154 mg/dLCritically ieob92-173XwrThe [facility] HospitalComment on above:Performed By: #### CVDTBH #### [facility] [address] [address] [address] Ember TeaguePotassium [Moles/Vol]4.8 mmol/LNormal3.5-5.1[facility] Comment on above:Performed By: #### CVDTBH #### [facility] [address] [address] [address] Ember TeagueSodium [Moles/Vol]139 mmol/WRqreqr154-275FvgThe [facility] Comment on above:Performed By: #### CVDTBH #### [facility] [address] [address] [address] Ember TeagueUrea nitrogen [Mass/Vol]43.0 mg/dLCritically high7.0-18.0The [facility] HospitalComment on above:Performed By: #### CVDTBH #### [facility] [address] [address] [address] Ember Demarco nitrogen/Creatinine [Mass ratio]21.2 mg/mgChillicothe VA Medical CenterComment on above:Performed By: #### CVDTBH #### [facility] [address] [place] [address] Dr. Ember CurryLTSEAN SPUTUMon 00-53-2721HCBUVTH SPUTUMCulture Observations: Beta lactamase positive Isolate 1 Haemophilus influenzae Moderate growth ofChillicothe VA Medical CenterComment on above:Performed By: #### RENAL #### [facility] [address] [address] [address] Ember TeagueSPUTUM GRAM STAINon 12-77-6483DDMZVXRPMpsmstYbtMary [facility] Comment on above:Performed By: #### RENAL #### [facility] [address] [place] [address] Dr. Ember LundPHTHEROIDSChillicothe VA Medical CenterComment on above:Performed By: #### RENAL #### [facility] [address] [address] [address] Pa ChangEPITHELIALS>25[facility] CenterComment on above: Performed By: #### RENAL #### [facility] [address] [address] [address] Ember TeagueFUNGAL ELEMENTSChillicothe VA Medical CenterComment on above: Performed By: #### RENAL #### [facility] [address] [address] [address] Ember Irwin NEG BACILLIGrand Lake Joint [facility] Hospital HospitalComment on above: Performed By: #### RENAL #### [facility] [address] [address] [address] Ember Irwin NEG DIPPLOCOCCIFECorey HospitalComment on above:Performed By: #### RENAL #### [facility] [address] [address] [address] Ember Irwin POS BACILLIFEProMedica Memorial Hospital HospitalComment on above: Performed By: #### RENAL #### [facility] [address] [address] [address] Ember Irwin POSITIVE COCCIMASelect Medical Specialty Hospital - Board[facility], IncComascension borg[facility]pipp hospital on above:Performed By: #### RENAL #### [facility] [address] [address] [address] Ember TeagueWBC (d) [#/Vol]10*3/[facility] HospitalComasc[facility] on above:Performed By: #### RENAL #### [facility] [address] [place] [address] Dr. Ember TeagueXR CHEST 2 Von 97-18-4189GK CHEST 2 VEXAMINATION: XR CHEST 2 V, [...] Electronically authenticated by: ANGELINA BRISENO Date: 2022-10-24 16:22NormalThe [facility] HospitalFERRITINon 31-95-7092Qqicquaq [Mass/Vol]612.0 ng/mLCritically high8.0-252.0The [facility] HospitalComment on above:Performed By: #### FERR, FETIBC #### [facility] [address] [place] [address] Dr. Ember TeagueHEMOGRAM AND PLATELon 00-58-5323Yoaodwhofv (Bld) [Volume fraction]28.1 %Critically low36.0-48.0The [facility] HospitalComment on above: Performed By: #### CBC #### [facility] [address] [place] [address] Dr. Ember TeagueHemoglobin (Bld) [Mass/Vol]9.7 g/dLCritically low12.0-16.0The [facility] HospitalComment on above:Performed By: #### CBC #### [facility] [address] [place] [address] Dr. Ember Villafuerte (RBC) [Entitic mass]31.3 laLljxxg16.7-34.0The [facility] on above:Performed By: #### CBC #### [facility] [address] [place] [address] Dr. Ember Villafuerte (RBC) [Mass/Vol]34.5 g/vOFwwngq47.9-35.2The [facility] HospitalComment on above:Performed By: #### CBC #### [facility] [address] [place] [address] Dr. Ember Villafuerte (RBC) [Entitic vol]90.6 iCSxdjtd56.0-99.0The [facility] on above:Performed By: #### CBC #### [facility] [address] [place] [address] Dr. Ember TeaguePLT183 103/byXecvzj890-993Hxb [facility] HospitalComment on above: Performed By: #### CBC #### [facility] [address] [place] [address] Dr. Ember TeagueRBC3.10 106/ulCritically low4.20-5.40The [facility] HospitalComment on above:Performed By: #### CBC #### [facility] [address] [place] [address] Dr. Ember TeagueWBC7.2 103/ulNormal4.0-11.0The [facility] HospitalComment on above: Performed By: #### CBC #### [facility] [address] [place] [address] Dr. Ember Amador AND TIBAtrium Health 09-18-2022% EGMEZMZBSS22.0 %NormalThe [facility] HospitalComascension [facility]org[facility] hospital on above:Performed By: #### FERR, FETIBC #### [facility] [address] [place] [address] Dr. Ember Amador [Mass/Vol]77.0 ug/pUYnzqrp30.0-170.0The [facility] Comment on above:Performed By: #### FERR, FETIBC #### [facility] [address] [place] [address] Dr. Ember TeagueTIBC AWMFFR491.0 ug/dLCritically mid256.0-450.0The [facility] HospitalComascension [facility]org[facility] on above:Performed By: #### FERR, FETIBC #### [facility] [address] [place] [address] Dr. Ember MackayAL FUNCTION PANELon 24-05-8934Janpocy [Mass/Vol]3.7 g/dLNormal 3.4-5.0The [facility] HospitalComment on above:Performed By: #### RENAL #### [facility] [address] [place] [address] Dr. Ember TeagueCalcium [Mass/Vol]9.5 mg/dLNormal8.5-10.1The [facility] Comment on above:Performed By: #### RENAL #### [facility] [address] [place] [address] Dr. Ember TeagueChloride [Moles/Vol]103 mmol/UBcfzsh28-822Rnn [facility] Comment on above:Performed By: #### RENAL #### [facility] [address] [address] [address] Ember TeagueCO2 [Moles/Vol]21.1 mmol/ZUavhhb74.0-32.0The [facility] Comment on above:Performed By: #### RENAL #### [facility] [address] [address] [address] Ember TeagueCreatinine [Mass/Vol]1.85 mg/dLCritically high0.55-1.02The [facility] HospitalComment on above:Performed By: #### RENAL #### [facility] [address] [place] [address] Dr. Ember PedersenGFR-AF FYIZFRBU55 mL/min/1.49s5Dlmpeubdeg low>=60The [facility] HospitalComment on above:Performed By: #### RENAL #### [facility] [address] [place] [address] Dr. Ember PedersenGFR-NON AF SWTHBIHS43 mL/min/1.80i3Mzfjywquzl low>=60The [facility] HospitalComment on above:Performed By: #### RENAL #### [facility] [address] [place] [address] Dr. Ember TeagueGlucose [Mass/Vol]183 mg/dLCritically ligk84-368Gtl [facility] HospitalComment on above:Performed By: #### RENAL #### [facility] [address] [place] [address] Dr. Ember TeaguePhosphate [Mass/Vol]3.7 mg/dLNormal2.6-4.7The [facility] Comment on above:Performed By: #### RENAL #### [facility] [address] [place] [address] Dr. Ember TeaguePotassium [Moles/Vol]4.9 mmol/LNormal3.5-5.1The [facility] Comment on above:Performed By: #### RENAL #### [facility] [address] [place] [address] Dr. Ember TeagueSodium [Moles/Vol]138 mmol/RPjhuoc516-179BmaThe [facility] Comment on above:Performed By: #### RENAL #### [facility] [address] [place] [address] Dr. Ember Demarco nitrogen [Mass/Vol]40.0 mg/dLCritically high7.0-18.0The [facility] HospitalComment on above:Performed By: #### RENAL #### [facility] [address] [place] [address] Dr. Ember TeagueCULTURE URINEon 14-90-8631RFLDXPZ URINEIsolate 1 Citrobacter freundii >100,000 cfu/mL of [...] 32 S F Trimethoprim/Sulfamethoxazole <=20 S FNormalThe [facility] HospitalComment on above:Performed By: #### RENAL #### [facility] [address] [place] [address] Dr. Ember Aremnta 05-17-2452Wgfflbketei peptide B (Bld) [Mass/Vol]408.0 pg/mL Normal<=1,800.0The [facility] HospitalComment on above:Performed By: #### PTHINT #### [facility] [address] [place] [address] Dr. Ember Persaud AUTO DIFFon 68-07-4786PIXG #0.0 103/ulNormal0.0-0.1The [facility] HospitalComment on above:Performed By: #### CBC #### [facility] [address] [place] [address] Dr. Ember TeagueBasophils/100 WBC (Bld)0.3 %Normal0.2-2.0The [facility] Comment on above:Performed By: #### CBC #### [facility] [address] [address] [address] Ember Calvert #0.1 103/ulNormal0.0-0.7The [facility] HospitalComment on above: Performed By: #### CBC #### [facility] [address] [place] [address] Dr. Ember Pedersenosinophils/100 WBC (Bld)1.9 %Normal0.9-7.0The [facility] Comment on above:Performed By: #### CBC #### [facility] [address] [place] [address] Dr. Ember Pedersenrythrocyte distribution width (RBC) [Ratio]15.2 %Critically high 11.0-15.0The [facility] HospitalComment on above:Performed By: #### CBC #### [facility] [address] [place] [address] Dr. Ember TeagueHematocrit (Bld) [Volume fraction]26.6 %Critically low36.0-48.0 The [facility] HospitalComment on above:Performed By: #### CBC #### [facility] [address] [place] [address] Dr. Ember TeagueHemoglobin (Bld) [Mass/Vol]9.0 g/dLCritically low12.0-16.0[facility] Daytonment on above:Performed By: #### CBC #### [facility] [address] [place] [address] Dr. Ember Vargas #0.02 10e3/ulNormal0.00-0.03The [facility] HospitalComment on above:Performed By: #### CBC #### [facility] [address] [place] [address] Dr. Ember Vargas %0.3 %Normal0.0-0.5The [facility] HospitalComment on above: Performed By: #### CBC #### [facility] [address] [place] [address] Dr. Ember Means #1.9 103/ulNormal1.2-3.8The [facility] HospitalComment on above:Performed By: #### CBC #### [facility] [address] [address] [address] Ember Millermphocytes/100 WBC (Bld)32.4 %Ofbwje87.5-60.0The [facility] HospitalComment on above:Performed By: #### CBC #### [facility] [address] [address] [address] Ember Woo DIFF REQNONormalThe [facility] HospitalComment on above: Performed By: #### CBC #### [facility] [address] [address] [address] Ember Villafuerte (RBC) [Entitic mass]31.1 bhSeqzvp97.7-34.0The [facility] HospitalComment on above:Performed By: #### CBC #### [facility] [address] [place] [address] Dr. Ember Villafuerte (RBC) [Mass/Vol]33.8 g/cLPkpajo74.9-35.2The [facility] HospitalComment on above:Performed By: #### CBC #### [facility] [address] [place] [address] Dr. Ember Villafuerte (RBC) [Entitic vol]92.0 qNLwvocn99.0-99.0The [facility] HospitalComment on above:Performed By: #### CBC #### [facility] [address] [place] [address] Dr. Ember Leija #0.6 103/ulNormal0.3-0.8The [facility] HospitalComment on above:Performed By: #### CBC #### [facility] [address] [place] [address] Dr. Ember Fofanaocytes/100 WBC (Bld)10.0 %Normal1.7-12.0The [facility] on above:Performed By: #### CBC #### [facility] [address] [place] [address] Dr. Ember Wilson #3.2 103/ulNormal1.4-6.5The [facility] HospitalComment on above:Performed By: #### CBC #### [facility] [address] [place] [address] Dr. Ember TeagueNeutrophils/100 WBC (Bld)55.1 %Cnynxf79.0-75.0The [facility] HospitalComment on above:Performed By: #### CBC #### [facility] [address] [place] [address] Dr. Ember TeaguePlatelet mean volume (Bld) [Entitic vol]9.4 fLCritically low 9.5-13.5The [facility] HospitalComment on above:Performed By: #### CBC #### [facility] [address] [place] [address] Dr. Ember TeaguePLT196 103/haHglfmw097-189Zsz [facility] HospitalComment on above: Performed By: #### CBC #### [facility] [address] [place] [address] Dr. Ember TeagueRBC2.89 106/ulCritically low4.20-5.40The [facility] HospitalComment on above:Performed By: #### CBC #### [facility] [address] [place] [address] Dr. Ember TeagueWBC5.8 103/ulNormal4.0-11.0The [facility] HospitalComment on above: Performed By: #### CBC #### [facility] [address] [place] [address] Dr. Ember TeaguePROF 14(COMP METB)on 21-89-9521Qgorzaq [Mass/Vol]3.7 g/dLNormal 3.4-5.0The [facility] HospitalComment on above:Performed By: #### PTHINT #### [facility] [address] [place] [address] Dr. Ember TeagueAlbumin/Globulin [Mass ratio]1.0 {ratio}NormalThe [facility] HospitalComment on above:Performed By: #### PTHINT #### [facility] [address] [place] [address] Dr. Ember MojicaP [Catalytic activity/Vol]79 U/YLvnlyn73-206Ovk [facility] HospitalComment on above:Performed By: #### PTHINT #### [facility] [address] [place] [address] Dr. Ember MojicaT [Catalytic activity/Vol]24 U/WTaseax51-82Imd [facility] HospitalComment on above:Performed By: #### PTHINT #### [facility] [address] [place] [address] Dr. Ember Thompsonon gap [Moles/Vol]12.8 mmol/LNormalThe [facility] Comment on above:Performed By: #### PTHINT #### [facility] [address] [place] [address] Dr. Ember TeagueAST [Catalytic activity/Vol]17 U/TCocwda40-14Pic [facility] HospitalComment on above:Performed By: #### PTHINT #### [facility] [address] [place] [address] Dr. Ember TeagueBilirubin [Mass/Vol]0.5 mg/dLNormal0.2-1.0[facility] Comment on above:Performed By: #### PTHINT #### [facility] [address] [place] [address] Dr. Ember TeagueCalcium [Mass/Vol]9.4 mg/dLNormal8.5-10.1[facility] Comment on above:Performed By: #### PTHINT #### [facility] [address] [place] [address] Dr. Ember TeagueChloride [Moles/Vol]101 mmol/CJlbtdo89-586Mhr [facility] Comment on above:Performed By: #### PTHINT #### [facility] [address] [place] [address] Dr. Ember TeagueCO2 [Moles/Vol]24.3 mmol/CIrqrtc68.0-32.0The [facility] Comment on above:Performed By: #### PTHINT #### [facility] [address] [place] [address] Dr. Ember TeagueCreatinine [Mass/Vol]2.84 mg/dLCritically high0.55-1.02The [facility] HospitalComment on above:Performed By: #### PTHINT #### [facility] [address] [place] [address] Dr. Ember PedersenGFR-AF TSTDZMJJ87 mL/min/1.83e7Jsazsmeqgp low>=60The [facility] HospitalComment on above:Performed By: #### PTHINT #### [facility] [address] [place] [address] Dr. Ember PedersenGFR-NON AF ZNLBWRED44 mL/min/1.65p1Sktbxewrae low>=60The [facility] HospitalComment on above:Performed By: #### PTHINT #### [facility] [address] [place] [address] Dr. Ember TeagueGlobulin (S) [Mass/Vol]3.7 g/dLNormalThe [facility] HospitalComment on above:Performed By: #### PTHINT #### [facility] [address] [place] [address] Dr. Ember TeagueGlucose [Mass/Vol]174 mg/dLCritically cdic57-764Lzr [facility] HospitalComment on above:Performed By: #### PTHINT #### [facility] [address] [place] [address] Dr. Ember TeaguePotassium [Moles/Vol]5.1 mmol/LNormal3.5-5.1The [facility] Comment on above:Performed By: #### PTHINT #### [facility] [address] [place] [address] Dr. Ember TeagueProtein [Mass/Vol]7.4 g/dLNormal6.4-8.2The [facility] Comment on above:Performed By: #### PTHINT #### [facility] [address] [place] [address] Dr. Ember TeagueSodium [Moles/Vol]133 mmol/LCritically gmr322-626Ttt [facility] HospitalComment on above:Performed By: #### PTHINT #### [facility] [address] [place] [address] Dr. Yilan ChangUrea nitrogen [Mass/Vol]68.0 mg/dLCritically high7.0-18.0The [facility] HospitalComment on above:Performed By: #### PTHINT #### [facility] [address] [place] [address] Dr. Ember Demarco nitrogen/Creatinine [Mass ratio]23.9 mg/mgNormalThe [facility] HospitalComment on above:Performed By: #### PTHINT #### [facility] [address] [place] [address] Dr. Ember Miller, HIGH SENSITIVITYon 19-26-4842IMZXOG3.1 pg/mLNormal 4.0-51.3The [facility] HospitalComment on above:Result Comment: CUT-OFF POINTS HAVE BEEN ESTABLISHED BASED ON THE FOURTH UNIVERSAL DEFINITIONS OF MYOCARDIAL INFARCTION. THE UPPER REFERENCE LIMIT (URL) OF TROPONIN, DEFINED THE 99TH PERCENTILE OF cTnI DISTRIBUTION IN A REFERENCE POPULATION, HAS BEEN CONFIRMED THE DECISION THRESHOLD FOR [place] DIAGNOSIS.Performed By: #### PTHINT #### [facility] [address] [place] [address] Dr. Ember Amador RANDOM W/MICROSCOPICon [id number] SEENNormalNONE SEENThe [facility] HospitalComment on above:Performed By: #### CVDTBH #### [facility] [address] [place] [address] Dr. Ember Ramírez Ql (U)NegativeNormalNEGATIVEThe [facility] Comment on above:Performed By: #### CVDTBH #### [facility] [address] [place] [address] Dr. Ember TeagueCASTCHENGE SEENNormalNONE SEENThe [facility] HospitalComment on above:Performed By: #### CVDTBH #### [facility] [address] [place] [address] Dr. Ember Hoffman (U)CLEARNormalCLEARThe [facility] HospitalComment on above: Performed By: #### CVDTBH #### [facility] [address] [place] [address] Dr. Ember Lofton (U)LT. YELLOWNormalYELLOWThe [facility] HospitalComment on above:Performed By: #### CVDTBH #### [facility] [address] [address] [address] Ember TeagueCrystals LM Nom (Urine sed)NONE SEENNormalNONE SEENThe [facility] HospitalComment on above:Performed By: #### CVDTBH #### [facility] [address] [address] [address] Ember Claytonthelial cells LM Ql (Urine sed)FEWAbnormalNONE SEEN /RAREThe [facility] HospitalComment on above:Performed By: #### CVDTBH #### [facility] [address] [address] [address] Ember TeagueGlucose Ql (U)NegativeNormalNEGATIVEThe [facility] HospitalComment on above:Performed By: #### CVDTBH #### [facility] [address] [address] [address] Ember TeagueHemoglobin Ql (U)NegativeNormalNEGATIVEGood [facility] on above:Performed By: #### CVDTBH #### [facility] [address] [address] [address] Ember TeagueKetones Ql (U)NegativeNormalNEGATIVEThe [facility] HospitalComment on above:Performed By: #### CVDTBH #### [facility] [address] [address] [address] Ember TeagueLEUKOCYTESNegativeNormalNEGATIVEThe [facility] HospitalComment on above:Performed By: #### CVDTBH #### [facility] [address] [address] [address] Ember TeagueMUCOUSNONE SEENNormalNONE SEENThe [facility] HospitalComment on above:Performed By: #### CVDTBH #### [facility] [address] [address] [address] Ember TeagueNitrite Ql (U)NegativeNormalNEGATIVEThe [facility] HospitalComment on above:Performed By: #### CVDTBH #### [facility] [address] [place] [address] Dr. Ember Anne (U)5.5 [pH]Normal5-9The [facility] HospitalComment on above: Performed By: #### CVDTBH #### [facility] [address] [place] [address] Dr. Ember TeagueRBCNONE SEENAbnormal0-2The [facility] HospitalComment on above: Performed By: #### CVDTBH #### [facility] [address] [place] [address] Dr. Ember TeagueSPEC GRAVITY1.835Rinizx6.005-<=1.025The [facility] HospitalComment on above:Performed By: #### CVDTBH #### [facility] [address] [place] [address] Dr. Ember Amador PROTEINNegativeNormalNEGATIVE/ TRACEThe [facility] Comment on above:Performed By: #### CVDTBH #### [facility] [address] [place] [address] Dr. Ember Faustinbilisabelgen Qn (U)0.2 {Esau'U}/dLNormal0.2 - 1.0The [facility] HospitalComment on above:Performed By: #### CVDTBH #### [facility] [address] [place] [address] Dr. Ember TeagueWBCNONE SEENNormalNONE SEENThe [facility] HospitalComment on above: Performed By: #### CVDTBH #### [facility] [address] [place] [address] Dr. Ember Persaud AUTO DIFFon [id number] #0.0 103/ulNormal0.0-0.1The [facility] HospitalComment on above:Performed By: #### CBC #### [facility] [address] [place] [address] Dr. Ember TeagueBasophils/100 WBC (Bld)0.3 %Normal0.2-2.0The [facility] Comment on above:Performed By: #### CBC #### [facility] [address] [address] [address] Ember Calvert #0.2 103/ulNormal0.0-0.7The [facility] HospitalComment on above: Performed By: #### CBC #### [facility] [address] [place] [address] Dr. Ember Pedersenosinophils/100 WBC (Bld)3.7 %Normal0.9-7.0The [facility] Comment on above:Performed By: #### CBC #### [facility] [address] [place] [address] Dr. Ember Pedersenrythrocyte distribution width (RBC) [Ratio]15.0 %Esoqux36.0-15.0 [facility] on above:Performed By: #### CBC #### [facility] [address] [place] [address] Dr. Ember TeagueHematocrit (Bld) [Volume fraction]27.9 %Critically low36.0-48.0 The [facility] HospitalComment on above:Performed By: #### CBC #### [facility] [address] [place] [address] Dr. Ember TeagueHemoglobin (Bld) [Mass/Vol]9.7 g/dLCritically low12.0-16.0The [facility]ment on above:Performed By: #### CBC #### [facility] [address] [place] [address] Dr. Ember Vargas #0.01 10e3/ulNormal0.00-0.03The [facility] HospitalComment on above:Performed By: #### CBC #### [facility] [address] [place] [address] Dr. Ember Vargas %0.2 %Normal0.0-0.5The [facility] Hospitalment on above: Performed By: #### CBC #### [facility] [address] [place] [address] Dr. Ember MillerMPH #1.9 103/ulNormal1.2-3.8The [facility] HospitalComment on above:Performed By: #### CBC #### [facility] [address] [place] [address] Dr. Ember Millermphocytes/100 WBC (Bld)32.2 %Pewadm30.5-60.0The [facility] HospitalComment on above:Performed By: #### CBC #### [facility] [address] [place] [address] Dr. Ember MotleyUAL DIFF REQNONormalThe [facility] HospitalComment on above: Performed By: #### CBC #### [facility] [address] [place] [address] Dr. Ember Villafuerte (RBC) [Entitic mass]31.4 thEwvkyh92.7-34.0The [facility] HospitalComment on above:Performed By: #### CBC #### [facility] [address] [place] [address] Dr. Ember Villafuerte (RBC) [Mass/Vol]34.8 g/tWGssvzv25.9-35.2The [facility] HospitalComment on above:Performed By: #### CBC #### [facility] [address] [place] [address] Dr. Ember Villafuerte (RBC) [Entitic vol]90.3 hDCsoksi42.0-99.0The [facility] HospitalComment on above:Performed By: #### CBC #### [facility] [address] [place] [address] Dr. Ember Leija #0.6 103/ulNormal0.3-0.8The [facility] HospitalComment on above:Performed By: #### CBC #### [facility] [address] [place] [address] Dr. Ember Fofanaocytes/100 WBC (Bld)9.8 %Normal1.7-12.0The [facility] Comment on above:Performed By: #### CBC #### [facility] [address] [place] [address] Dr. Ember Wilson #3.2 103/ulNormal1.4-6.5The [facility] HospitalComment on above:Performed By: #### CBC #### [facility] [address] [address] [address] Ember TeagueNeutrophils/100 WBC (Bld)53.8 %Jfvebh92.0-75.0The [facility] HospitalComment on above:Performed By: #### CBC #### [facility] [address] [place] [address] Dr. Ember Traylorlet mean volume (Bld) [Entitic vol]10.0 fLNormal9.5-13.5The [facility] HospitalComment on above:Performed By: #### CBC #### [facility] [address] [place] [address] Dr. Ember TeaguePLT194 103/hjJfvywc701-775Dre [facility] HospitalComascension [facility] on above: Performed By: #### CBC #### [facility] [address] [place] [address] Dr. Ember TeagueRBC3.09 106/ulCritically low4.20-5.40The [facility] HospitalComascension [facility] on above:Performed By: #### CBC #### [facility] [address] [place] [address] Dr. Ember TeagueWBC6.0 103/ulNormal4.0-11.0The [facility] on above: Performed By: #### CBC #### [facility] [address] [place] [address] Dr. Ember TeaguePTH INTACTon 15-99-3478UAS, Hefurq76 pg/vIAzddgb59-60Tkx [facility] HospitalComment on above:Performed By: #### PTHINT #### [facility] [address] [place] [address] Dr. Ember HidalgoC AUTO DIFFon [id number] #0.1 103/ulNormal0.0-0.1The [facility] on above:Performed By: #### CVDTBH #### [facility] [address] [place] [address] Dr. Ember TeagueBasophils/100 WBC (Bld)0.6 %Normal0.2-2.0[facility] Comment on above:Performed By: #### CVDTBH #### [facility] [address] [place] [address] Dr. Ember Calvert #0.2 103/ulNormal0.0-0.7The [facility] HospitalComment on above: Performed By: #### CVDTBH #### [facility] [address] [place] [address] Dr. Ember Pedersenosinophils/100 WBC (Bld)3.0 %Normal0.9-7.0The [facility] Comment on above:Performed By: #### CVDTBH #### [facility] [address] [place] [address] Dr. Ember Pedersenrythrocyte distribution width (RBC) [Ratio]14.2 %Uoualv91.0-15.0 The [facility] HospitalComment on above:Performed By: #### CVDTBH #### [facility] [address] [place] [address] Dr. Ember TeagueHematocrit (Bld) [Volume fraction]30.9 %Critically low36.0-48.0 The [facility] HospitalComment on above:Performed By: #### CVDTBH #### [facility] [address] [place] [address] Dr. Ember TeagueHemoglobin (Bld) [Mass/Vol]10.6 g/dLCritically low12.0-16.0The [facility] HospitalComment on above:Performed By: #### CVDTBH #### [facility] [address] [place] [address] Dr. Ember Vargas #0.04 10e3/ulCritically high0.00-0.03The [facility] Comment on above:Performed By: #### CVDTBH #### [facility] [address] [place] [address] Dr. Ember Vargas %0.5 %Normal0.0-0.5The [facility] HospitalComment on above: Performed By: #### CVDTBH #### [facility] [address] [place] [address] Dr. Ember Means #2.2 103/ulNormal1.2-3.8The [facility] HospitalComment on above:Performed By: #### CVDTBH #### [facility] [address] [place] [address] Dr. Ember Millermphocytes/100 WBC (Bld)27.0 %Yvvzlc31.5-60.0The [facility] HospitalComment on above:Performed By: #### CVDTBH #### [facility] [address] [place] [address] Dr. Ember Woo DIFF REQNONormalThe [facility] HospitalComment on above: Performed By: #### CVDTBH #### [facility] [address] [place] [address] Dr. Ember Fitzpatrick (RBC) [Entitic mass]31.2 pnShayit89.7-34.0The [facility] HospitalComment on above:Performed By: #### CVDTBH #### [facility] [address] [place] [address] Dr. Embre Villafuerte (RBC) [Mass/Vol]34.3 g/zOOmckqx61.9-35.2The [facility] HospitalComment on above:Performed By: #### CVDTBH #### [facility] [address] [place] [address] Dr. Ember Villafuerte (RBC) [Entitic vol]90.9 nHLziydy19.0-99.0The [facility] HospitalComment on above:Performed By: #### CVDTBH #### [facility] [address] [place] [address] Dr. Ember Leija #0.7 103/ulNormal0.3-0.8The [facility] HospitalComment on above:Performed By: #### CVDTBH #### [facility] [address] [place] [address] Dr. Ember Fofanaocytes/100 WBC (Bld)9.2 %Normal1.7-12.0The [facility] Comment on above:Performed By: #### CVDTBH #### [facility] [address] [address] [address] Ember Wilson #4.8 103/ulNormal1.4-6.5The [facility] HospitalComment on above:Performed By: #### CVDTBH #### [facility] [address] [place] [address] Dr. Ember Chenutrophils/100 WBC (Bld)59.7 %Yjsljg61.0-75.0The [facility]Comment [facility] above:Performed By: #### CVDTBH #### [facility] [address] [place] [address] Dr. Ember Traylorlet mean volume (Bld) [Entitic vol]9.3 fLCritically low 9.5-13.5The [facility] HospitalComment on above:Performed By: #### CVDTBH #### [facility] [facility] [address] [place] [address] Dr. Ember TeaguePLT227 103/hrHyepes674-409Cns Fort [facility] HospitalComment on above: Performed By: #### CVDTBH #### [facility] [address] [place] [address] Dr. Ember TeagueRBC3.40 106/ulCritically low4.20-5.40The [facility] HospitalComment on above:Performed By: #### CVDTBH #### [facility] [address] [place] [address] Dr. Ember TeagueWBC8.0 103/ulNormal4.0-11.0The [facility] HospitalComment on above: Performed By: #### CVDTBH #### [facility] [address] [place] [address] Dr. Ember Mirza LSPINE WO CONon [id number] LSPINE WO CONEXAMINATION: MRI LSPINE WO CON [...] Electronically authenticated by: YANET HUERTA Date: 2022-06-25 08:[address] [place], [place] [address]RENAL FUNCTION PANELon 74-84-2770Ltksmig [Mass/Vol]3.9 g/dL Normal3.4-5.0The Christ HospitalComment on above:Performed By: #### PTHINT #### [facility] [address] [place] [address] Dr. Ember TeagueCalcium [Mass/Vol]9.5 mg/dLNormal8.5-10.1[facility] Comment on above:Performed By: #### PTHINT #### [facility] [address] [place] [address] Dr. Ember TeagueChloride [Moles/Vol]102 mmol/XDaohjf11-827Byn [facility] Comment on above:Performed By: #### PTHINT #### [facility] [address] [address] [address] Ember TeagueCO2 [Moles/Vol]23.8 mmol/NJqxeqm20.0-32.0The [facility] Comment on above:Performed By: #### PTHINT #### [facility] [address] [place] [address] Dr. Ember TeagueCreatinine [Mass/Vol]1.75 mg/dLCritically high0.55-1.02The [facility] HospitalComment on above:Performed By: #### PTHINT #### [facility] [address] [place] [address] Dr. Pa ChangEGFR-AF CSHWEMJN07 mL/min/1.96l5Wyiewkrofm low>=60The [facility] HospitalComment on above:Performed By: #### PTHINT #### [facility] [address] [place] [address] Dr. Ember PedersenGFR-NON AF IIJGKDXN86 mL/min/1.85x0Oktkepjldi low>=60The [facility] HospitalComment on above:Performed By: #### PTHINT #### [facility] [address] [place] [address] Dr. Ember TeagueGlucose [Mass/Vol]199 mg/dLCritically jias70-160Oht [facility] HospitalComment on above:Performed By: #### PTHINT #### [facility] [address] [place] [address] Dr. Ember TeaguePhosphate [Mass/Vol]4.3 mg/dLNormal2.6-4.7The [facility] Comment on above:Performed By: #### PTHINT #### [facility] [address] [place] [address] Dr. Ember TeaguePotassium [Moles/Vol]4.9 mmol/LNormal3.5-5.1The [facility] Comment on above:Performed By: #### PTHINT #### [facility] [address] [place] [address] Dr. Ember TeagueSodium [Moles/Vol]135 mmol/LCritically iwl962-395Vcj [facility] HospitalComment on above:Performed By: #### PTHINT #### [facility] [address] [address] [address] Ember Demarco nitrogen [Mass/Vol]34.0 mg/dLCritically high7.0-18.0The [facility] HospitalComment on above:Performed By: #### PTHINT #### [facility] [address] [place] [address] Dr. Ember TeagueVITAMIN D 25 OHon 11-97-2776MPW D 25-OH40.6 ng/mLNormalThe [facility] HospitalComment on above:Performed By: #### PTHINT #### [facility] [address] [place] [address] Dr. Ember Sosa RANGESSEE BELOWNormalThUniversity Hospitals Elyria Medical CenterComment on above: Result Comment: <20 ng/mL Vit D deficient 20 - <30 ng/mL Vit D insufficient 30 - 100 ng/mL Vit D sufficient >100 ng/mL Potential ToxicityPerformed By: #### PTHINT #### [facility] [address] [place] [address] Dr. Ember TeagueCovid-19 PCR ([facility])on 08-68-5370ONIX-CoV-2 (COVID-19) RNA ALEXX+probe Ql (Unsp spec)Not detectedNormalNOT DETECTEDThe [facility] Comment on above:Result Comment: This test is not yet approved or cleared by the [place] FDA. When there are no FDA-approved or cleared tests available, and other criteria are met, FDA can make tests available under an emergency access mechanism called an Emergency Use Authorization (EUA). The EUA for this test is supported by the Photovolta[employer] Panel Installer of Health and Human Service's (HHS's) declaration [...] and symptoms consistent with SARS-CoV-2.Performed By: #### CVDTBH #### [facility] [address] [address] [address] Ember Tamez [facility] WO CONon 14-82-4920CT [facility] CONEXAMINATION: CT [facility] CON, 06/01/2022 7:48 AM EDT HISTORY: Collapse [...] Electronically authenticated by: YANET HUERTA Date: 2022-06-01 18:02[facility]XR L[facility] MIN 4 VIEWSon 38-52-3627WC LSPINE MIN 4 VIEWS EXAMINATION: XR LSPINE [...] Electronically authenticated by: YANET HUERTA Date: 2022-05-21 15:25NormalThe [facility] HospitalPTH INTACTon 53-15-5596SOF, Ucnknm57 pg/rPPiresd44-34Nzv [facility] HospitalComment on above:Performed By: #### CVDTBH #### [facility] [address] [address] [address] Ember Sosa 25-OH LABCORPon 62-22-6487Wsxuvsy D, 25-Hklrgyx18.1 ng/mL Critically low30.0-100.0The [facility] Private Hospitalment on above:Result Comment: Vitamin D deficiency has been defined by the [place] of [employer] and an Endocrine Society practice guideline as a level of serum 25-OH vitamin D less than 20 ng/mL (1,2). The Endocrine Society went on to further define vitamin D insufficiency as a level between 21 and 29 ng/mL (2). 1. IOM ([place] [employer]). 2010. Dietary reference intakes for calcium and D. [place]: The National Academies Press. 2. Sherice MF, Wendy NC, Huan ZHONG, et al. Evaluation, treatment, and prevention of vitamin D deficiency: an Endocrine Society clinical practice guideline. JCEM. 2010; 96(7):1911-30.Performed By: #### RENAL #### [facility] [address] [address] [address] Ember TeagueFERRITINon 43-06-3025Pnmdtbpg [Mass/Vol]590.0 ng/mLCritically high8.0-252.0The [facility] HospitalComment on above:Performed By: #### RENAL #### [facility] [address] [address] [address] Ember TeagueHEMOGRAM AND PLATELon 07-50-9058Ykhuxrhayo (Bld) [Volume fraction]28.4 %Critically low36.0-48.0The [facility] HospitalComment on above: Performed By: #### CVDTBH #### [facility] [address] [place] [address] Dr. Ember Montieloglobin (Bld) [Mass/Vol]9.6 g/dLCritically low12.0-16.0The [facility] HospitalComment on above:Performed By: #### CVDTBH #### [facility] [address] [place] [address] Dr. Ember Villafuerte (RBC) [Entitic mass]31.0 dwFlaogb71.7-34.0The [facility] HospitalComment on above:Performed By: #### CVDTBH #### [facility] [address] [place] [address] Dr. Ember Villafuerte (RBC) [Mass/Vol]33.8 g/qCJpktvt34.9-35.2The [facility] HospitalComment on above:Performed By: #### CVDTBH #### [facility] [address] [place] [address] Dr. Ember Villafuerte (RBC) [Entitic vol]91.6 cIOvlsbn58.0-99.0The [facility] HospitalComment on above:Performed By: #### CVDTBH #### [facility] [address] [place] [address] Dr. Ember TeaguePLT189 103/vgNzslvo188-782Tic [facility] HospitalComascension [facility] on above: Performed By: #### CVDTBH #### [facility] [address] [place] [address] Dr. Ember TeagueRBC3.10 106/ulCritically low4.20-5.40The [facility] HospitalComment on above:Performed By: #### CVDTBH #### [facility] [address] [place] [address] Dr. Ember TeagueWBC6.2 103/ulNormal4.0-11.0The [facility] HospitalComment on above: Performed By: #### CVDTBH #### [facility] [address] [place] [address] Dr. Ember Amador AND TIBCon 05-02-2022% ZDYTDKQLMX68.3 %NormalThe [facility] HospitalComment on above:Performed By: #### RENAL #### [facility] [address] [place] [address] Dr. Ember Amador [Mass/Vol]69.0 ug/iVSfnkmb05.0-170.0The [facility] Comment on above:Performed By: #### RENAL #### [facility] [address] [place] [address] Dr. Ember TeagueTIBC IKTUVE996.0 ug/dLCritically zxv665.0-450.0The [facility] HospitalComment on above:Performed By: #### RENAL #### [facility] [address] [place] [address] Dr. Ember TeagueMAGNESIUMon 24-01-4523Ktebbxxru [Mass/Vol]1.7 mg/dLCritically low 1.8-2.4The [facility] HospitalComment on above:Performed By: #### CVDTBH #### [facility] [address] [place] [address] Dr. Ember MackayAL FUNCTION PANELon 57-21-5249Azblajx [Mass/Vol]3.6 g/dLNormal 3.4-5.0The [facility] HospitalComment on above:Performed By: #### CVDTBH #### [facility] [address] [place] [address] Dr. Ember TeagueCalcium [Mass/Vol]9.2 mg/dLNormal8.5-10.1The [facility] Comment on above:Performed By: #### CVDTBH #### [facility] [address] [place] [address] Dr. Ember TeagueChloride [Moles/Vol]107 mmol/GRbzgpl75-904Btx [facility] Comment on above:Performed By: #### CVDTBH #### [facility] [address] [place] [address] Dr. Ember TeagueCO2 [Moles/Vol]21.2 mmol/CXzkipp91.0-32.0The [facility] Comment on above:Performed By: #### CVDTBH #### [facility] [address] [address] [address] Ember TeagueCreatinine [Mass/Vol]1.75 mg/dLCritically high0.55-1.02The [facility] HospitalComment on above:Performed By: #### CVDTBH #### [facility] [address] [address] [address] Ember PedersenGFR-AF QAOJXQWL27 mL/min/1.84l0Hunhvhzipj low>=60The [facility] HospitalComment on above:Performed By: #### CVDTBH #### [facility] [address] [place] [address] Dr. Ember Douglas-NON AF JLKUNTUG33 mL/min/1.58i7Ujondvkqbo low>=60The [facility] HospitalComment on above:Performed By: #### CVDTBH #### [facility] [address] [place] [address] Dr. Ember TeagueGlucose [Mass/Vol]193 mg/dLCritically uhku60-639Egl [facility] HospitalComment on above:Performed By: #### CVDTBH #### [facility] [address] [place] [address] Dr. Ember TeaguePhosphate [Mass/Vol]4.2 mg/dLNormal2.6-4.7The [facility] Comment on above:Performed By: #### CVDTBH #### [facility] [address] [place] [address] Dr. Ember TeaguePotassium [Moles/Vol]5.1 mmol/LNormal3.5-5.1The [facility] Comment on above:Performed By: #### CVDTBH #### [facility] [address] [place] [address] Dr. Ember TeagueSodium [Moles/Vol]139 mmol/URxigqd317-829XpuThe [facility] Comment on above:Performed By: #### CVDTBH #### [facility] [address] [place] [address] Dr. Ember TeagueUrea nitrogen [Mass/Vol]34.0 mg/dLCritically high7.0-18.0The [facility] HospitalComment on above:Performed By: #### CVDTBH #### [facility] [address] [place] [address] Dr. Ember Amador RANDOM W/MICROSCOPICon 82-47-8258GMNMTDXJIYFYCNnnbmncgVBGL SEENThe Christ HospitalComment on above:Performed By: #### CVDTBH #### [facility] [address] [address] [address] Ember Marinairubin Ql (U)NegativeNormalNEGATIVEGood Samaritan Hospital on above:Performed By: #### CVDTBH #### [facility] [address] [place] [address] Dr. Ember Smith SEENNormalNONE SEENThe [facility] HospitalComment on above:Performed By: #### CVDTBH #### [facility] [address] [address] [address] Ember Hoffman (U)CLEARNormalCLEARThe Christ HospitalComment on above: Performed By: #### CVDTBH #### [facility] [address] [address] [address] Ember Lofton (U)LT. YELLOWNormalYOhioHealth Shelby HospitalComment on above:Performed By: #### CVDTBH #### [facility] [address] [place] [address] Dr. Ember TeagueCrystals LM Nom (Urine sed)NONE SEENNormalNONE SEENThe [facility] HospitalComment on above:Performed By: #### CVDTBH #### [facility] [address] [place] [address] Dr. Pa ChangEpithelial cells LM Ql (Urine sed)MODERATEAbnormalNONE SEEN /RARE The [facility] HospitalComment on above:Performed By: #### CVDTBH #### [facility] [address] [place] [address] Dr. Ember Núñezose Ql (U)NegativeNormalNEGATIVEThe [facility]any HospitalComment on above:Performed By: #### CVDTBH #### [facility] [address] [address] [address] Ember TeagueHemoglobin Ql (U)NegativeNormalNEGATIVEThe [facility] on above:Performed By: #### CVDTBH #### [facility] [address] [place] [address] Dr. Ember TeagueKetones Ql (U)NegativeNormalNEGATIVEThe [facility] HospitalComment on above:Performed By: #### CVDTBH #### [facility] [address] [place] [address] Dr. Ember TeagueLEUKOCYTESTRACEAbnormalNEGATIVEThe [facility] HospitalComment on above:Performed By: #### CVDTBH #### [facility] [address] [place] [address] Dr. Ember TeagueMUCOUSNONE SEENNormalNONE SEENThe [facility] HospitalComment on above:Performed By: #### CVDTBH #### [facility] [address] [place] [address] Dr. Ember TeagueNitrite Ql (U)NegativeNormalNEGATIVEThe [facility] HospitalComment on above:Performed By: #### CVDTBH #### [facility] [address] [place] [address] Dr. Ember TeaguepH (U)5.0 [pH]Normal5-9The [facility] HospitalComment on above: Performed By: #### CVDTBH #### [facility] [address] [place] [address] Dr. Ember TeagueRBCNONE SEENAbnormal0-2The [facility] HospitalComment on above: Performed By: #### CVDTBH #### [facility] [address] [place] [address] Dr. Ember TeagueSPEC GRAVITY1.316Pylcjm5.005-<=1.025The [facility] HospitalComment on above:Performed By: #### CVDTBH #### [facility] [address] [place] [address] Dr. Yilan ChangUA PROTEINTRACENormalNEGATIVE/ TRACEThe [facility] HospitalComment on above:Performed By: #### CVDTBH #### [facility] [address] [place] [address] Dr. Ember Sawyer Qn (U)0.2 {Esau'U}/dLNormal0.2 - 1.0The [facility] HospitalComment on above:Performed By: #### CVDTBH #### [facility] [address] [place] [address] Dr. Ember TeagueWBC0-2AbnormalNONE SEENThe [facility] HospitalComment on above: Performed By: #### CVDTBH #### [facility] [address] [place] [address] Dr. Ember Melendez ACID SERUMon 36-21-1309Nvcyb [Mass/Vol]4.4 mg/dLNormal 2.6-6.0The [facility] HospitalComment on above:Performed By: #### CBC #### [facility] [address] [place] [address] Dr. Ember Henderson T PROTEIN CREAT RATIOon 48-21-4180Muczavc (U) [Mass/Vol] 33.7 mg/dLCritically high<=12.0The [facility] HospitalComment on above:Performed By: #### CVDTBH #### [facility] [address] [place] [address] Dr. Ember Logan PROT CREAT RAT0.69NormalThe [facility] HospitalComment on above: Performed By: #### CVDTBH #### [facility] [address] [place] [address] Dr. Ember Henderson CREAT48.93 mg/kTWncmbx72.00-300.00The [facility] Comment on above:Performed By: #### CVDTBH #### [facility] [address] [place] [address] Dr. Ember Teague Vital Signs Date TimeVital SignValuePerforming YbffcoxnhFtmsuiox53-41-7298 09:03-0400Body aeibgp360.91 cmDhruv Gutierres MD Work Phone: [phone])[address]10-01-2025 09:03-0400 Body mass index (BMI) [Ratio]30 kg/z1HihsmqgDhruv Gutierres MD Work Phone: [phone])[address]10-01-2025 09:03-0400 Body iexnsusfmbq25.5 [degF]Dhruv Gutierres MD Work Phone: [phone])[address] [place], [place] 7770210-01-2025 09:03-0400 Body .78 kgDhruv Gutierres MD Work Phone: [phone] [place], [place] 77[address]210-01-2025 09:03-0400 Diastolic blood fsvnykbb54 mm[Hg]Dhruv Gutierres MD Work Phone: [phone])[address]10-01-2025 09:03-0400 Heart rate66 /Pratibha Gutierres MD Work Phone: [phone])[address] [place], [place] 77[address]210-01-2025 09:03-0400 Respiratory rate18 /Pratibha Gutierres MD Work Phone: [phone] [place], [place] 77[address]210-01-2025 09:03-0400 SaO2% (BldA) [Mass fraction]97 %Dhruv Gutierres MD Work Phone: [phone])[address] [place], [place] 77[address]210-01-2025 09:03-0400 Systolic blood rfzjayst878 mm[Hg]Dhruv Gutierres MD Work Phone: [phone])[address] [place], [place] 77[address]209-08-2025 10:11-0400 Body gyotmh251.8 Mj Pope MD Work Phone: [facility] CenterQgovpollvz64-37-6995 10:11-0400Body mass index (BMI) [Ratio]32.28 kg/i2GylnxLorraine Pope MD Work Phone: [facility] CenterAbgxeiljpl52-80-9105 10:11-0400Body aomwns55.64 kgLorraine Pope MD Work Phone: [facility] CenterJzrstdozes00-92-5443 10:11-0400Diastolic blood lakxaisa93 mm[Hg]Lorraine Pope MD Work Phone: [phone] [place], [place] [address]Lgkngpehit01-03-6024 10:11-0400Heart rate68 /min Lorraine Pope MD Work Phone: [phone])[address]09-08-2025 10:11-0400Respiratory rate16 /minLorraine Pope MD Work Phone: [phone])[address] [place], [place] 2282709-08-2025 10:11-5338HfH3% (BldA) [Mass fraction]97 %Lorraine Pope MD Work Phone: [phone])[address]09-08-2025 10:11-0400Systolic blood aijbyemq903 mm[Hg]Lorraine Pope MD Work Phone: [phone])[address] [place], [place] 2282705-12-2025 09:51-0400Body pbjugy816.9 Mj Pope MD Work Phone: [phone] [place], [place] [address]Rlfgkgvcqq46-25-1182 09:51-0400Body mass index (BMI) [Ratio]31 kg/b2CqlbqLorraine Pope MD Work Phone: [phone] [place], [place] 2282705-12-2025 09:51-0400Body ziwaku18.45 kgLorraine Pope MD Work Phone: [phone])[facility] [place], [place] [address]Zvhaoizymn96-65-5997 09:51-0400Diastolic blood ippcgnqv34 mm[Hg]Lorraine Pope MD Work Phone: [phone] [place], [place] [address]Mbqvbiubnm37-08-5417 09:51-0400Heart rate63 /min Lorraine Pope MD Work Phone: [phone] [place], [place] [address]Urydbcdmdx75-20-8036 09:51-0400Respiratory rate16 /minLorraine Pope MD Work Phone: [phone] [place], [place] [address]Pkwdgretvi90-59-2636 09:51-2850MgD1% (BldA) [Mass fraction]97 %Lorraine Pope MD Work Phone: [phone])[address]05-12-2025 09:51-0400Systolic blood mm[Hg]Lorraine Pope MD Work Phone: [facility] CenterDykjcgsbsw79-52-1427 09:15-0400Body lswnpy061.91 cmC[facility]04-10-2025 09:15-0400Body mass index (BMI) [Ratio]30.8 kg/k2AbckcxgfeCincinnati Shriners Hospital04-10-2025 09:15-0400Body actxbvsazfq71.2 [degF][facility]04-10-2025 09:15-0400Body ktmmoq44.05 kgCincinnati Shriners Hospital04-10-2025 09:15-0400Diastolic blood kimoseap05 mm[Hg][facility]04-10-2025 09:15-0400 Heart rate65 /[facility]04-10-2025 09:15-0400 Respiratory rate16 /[facility]04-10-2025 09:15-0400 SaO2% (BldA) [Mass fraction]98 %[facility]04-10-2025 09:15-0400Systolic blood qfvtvohj989 mm[Hg][facility] 11-16-2024 09:49-0500Body ylktsg153.9 Mj Pope MD Work Phone: [phone] [place], [place] [address]Ludiwaqung43-17-4683 09:49-0500Body mass index (BMI) [Ratio]30.53 kg/h1RhfunLorraine Pope MD Work Phone: [phone])710-[address] [place], [place] [address]Wwfojmkpil96-46-0767 09:49-0500Body iaguzn89.09 kgLorraine Pope MD Work Phone: [phone] [place], [place] [address]Gjgwfupbff34-34-4017 09:49-0500Diastolic blood tpaplkxs87 mm[Hg]Lorraine Pope MD Work Phone: [phone] [place], [place] [address]Ltlasgojyh92-24-2414 09:49-0500Heart rate62 /min Lorraine Pope MD Work Phone: [phone] CenterNcxyyshlej77-87-7270 09:49-0500Respiratory rate16 /minLorraine Pope MD Work Phone: [phone])544-[address] [place], [place] [address]Pahszqczlc33-39-7376 09:49-5139ZeP8% (BldA) [Mass fraction]97 %Lorraine Pope MD Work Phone: [facility] [facility] CenterNbrdtasgac03-69-7982 09:49-0500Systolic blood hauitmch205 mm[Hg]Lorraine Pope MD Work Phone: [facility] CenterLodxyoipoh06-15-8176 12:56-0400Body .9 cmTleti Delvalle MD Work Phone: [phone]-MarketectureNortheastern [facility] HospitalCardiva Medical Yvcven32-12-2225 12:56-0400Body mass index (BMI) [Ratio]30.05 kg/m2Thuan Delvalle MD Work Phone: [phone] [facility] HospitalCardiva Medical Palnvi91-17-9605 12:56-0400Body pbzyka96.73 kgThuan Delvalle MD Work Phone: [phone]-MarketectureNortheastern [facility] Regional HospitalPlanZap04-12-2024 12:56-0400Diastolic blood uxgbnlfw18 mm[Hg]Thuan Delvalle MD Work Phone: [facility] [employer] Oaqmyv21-56-1090 12:56-0400Heart rate 60 /minToanne Delvalle MD Work Phone: [facility] [employer] Cqvjqm49-13-7152 12:56-7987VeW6% (BldA) [Mass fraction]98 %Thuan Dlevalle MD Work Phone: [facility] Hospital[facility] Zjcqak48-10-9150 12:56-0400Systolic blood wuyzlqwc116 mm[Hg]Thuan Delvalle MD Work Phone: [facility] HospitalPlanZap02-12-2024 10:00-0500Body .91 cmAbdul Doreen Other [facility] [employer] Other 02-12-2024 10:00-0500Body mass index (BMI) [Ratio] 29.85 kg/i4Mrkvr Doreen Other [place] [employer] Other 02-12-2024 10:00-0500Body oyimtgcljqh17.3 [degF]Ron Doreen Other [employer] Other 02-12-2024 10:00-0500Body izelcm42.19 kgAbdul Doreen Other [employer] Other 02-12-2024 10:00-0500Diastolic blood apyzofds92 mm[Hg] Ron Doreen Other [employer] Other 02-12-2024 10:00-0500Respiratory rate18 /minAbdul [facility] 02-12-2024 10:00-0415DlU0% (BldA) [Mass fraction]98 % Ron Doreen Other [employer] Other 02-12-2024 10:00-0500Systolic blood fmcgahdp546 mm[Hg] Ron Doreen Other [employer] Other 01-29-2024 11:00-0500Body nxfaku571.91 cmAbdul Doreen Other [employer] Other 01-29-2024 11:00-0500Body mass index (BMI) [Ratio] 30.17 kg/d3Juuvb Doreen Other [employer] Other 01-29-2024 11:00-0500Body bzmvwmobcno19.6 [degF]Ron Doreen Other [employer] Other 01-29-2024 11:00-0500Body .09 kgAbdul Doreen Other [employer] Other 01-29-2024 11:00-0500Diastolic blood tizyxhxs06 mm[Hg] Ron Doreen Other [employer] Other 01-29-2024 11:00-0500Respiratory rate18 /minAbdul Doreen Other [employer] Other 01-29-2024 11:00-1333KkG4% (BldA) [Mass fraction]98 % Ron Doreen Other [employer] Other 01-29-2024 11:00-0500Systolic blood lxabzsfd578 mm[Hg] Ron Doreen Other [employer] Other 01-09-2024 13:00-0500Body .91 cmAbdul Doreen Other [employer] Other 01-09-2024 13:00-0500Body mass index (BMI) [Ratio] 29.82 kg/a2Icgtq Doreen Other [employer] Other 01-09-2024 13:00-0500Body diogmttlfvy97.5 [degF]Ron Doreen Other [employer] Other 01-09-2024 13:00-0500Body bbcdym94.1 kgAbdul Doreen Other [employer] Other 01-09-2024 13:00-0500Diastolic blood itspuibg53 mm[Hg] Ron Doreen Other [employer] Other 01-09-2024 13:00-0500Respiratory rate18 /minAbdul Doreen Other [facility] [employer] Other 01-09-2024 13:00-9102NqN8% (BldA) [Mass fraction]98 % Ron Doreen Other [employer] Other 01-09-2024 13:00-0500Systolic blood qimupiez752 mm[Hg] Ron Doreen Other [employer] Other 11-21-2023 09:40-0500Body saiwuq881.91 cmAzijanet Shaferjuniornickie Other [place] [employer] Other 11-21-2023 09:40-0500Body mass index (BMI) [Ratio]30.2 kg/m2Mary Anne Rodricknickie Other [employer] Other 11-21-2023 09:40-0500Body sfanvuhaufg58.7 [degF]Óscarduc Rodricknickie Other [employer] Other 11-21-2023 09:40-0500Body izyksp21.18 kgMary Anne Rodricknickie Other [employer] Other 11-21-2023 09:40-0500Diastolic blood kapxilvr24 mm[Hg] Azduc Ackerman Other [employer] Other 11-21-2023 09:40-0500Respiratory rate18 /minMary Anne Rodricks Other [employer] Other 11-21-2023 09:40-0398CuK3% (BldA) [Mass fraction]98 % Mary Anne Ackerman Other [employer] Other 11-21-2023 09:40-0500Systolic blood ngihrjpo342 mm[Hg] Mary Anne Ackerman Other [employer] Other 362107-17-9729 10:20-0500Body .91 cmAbdul Doreen Other [employer] Other [id number] 10:20-0500Body mass index (BMI) [Ratio]30.2 kg/n9Guyga Doreen Other [employer] Other [id number] 10:20-0500Body .1 [degF]Ron Doreen Other [employer] Other [id number] 10:20-0500Body fsmwhu89.18 kgAbdul Doreen Other [employer] Other 018904-87-4143 10:20-0500Diastolic blood lvzuifjh76 mm[Hg] Ron Doreen Other [employer] Other 11-09-2023 10:20-0500Respiratory rate18 /minAbdul Doreen Other [employer] Other 11-09-2023 10:20-4553XaH1% (BldA) [Mass fraction]98 % Ron Doreen Other [employer] Other 11-09-2023 10:20-0500Systolic blood vrioitac304 mm[Hg] Ron Doreen Other [place] [employer] Other 11-07-2023 15:40-0500Body dsapbt461.91 cmAbdul Doreen Other [place] [employer] Other 11-07-2023 15:40-0500Body mass index (BMI) [Ratio] 30.24 kg/x2Vvtfj Doreen Other [employer] Other 11-07-2023 15:40-0500Body xjpnzxyjzbz96.2 [degF]Ron Doreen Other [place] [employer] Other 11-07-2023 15:40-0500Body xluflw11.27 kgAbdul Doreen Other [employer] Other 11-07-2023 15:40-0500Diastolic blood ehvunkay31 mm[Hg] Ron Doreen Other [place] [employer] Other 11-07-2023 15:40-0500Respiratory rate18 /minAbdul Doreen Other [employer] Other 11-07-2023 15:40-8239RoT6% (BldA) [Mass fraction]98 % Ron Doreen Other [employer] Other 11-07-2023 15:40-0500Systolic blood xzsjejbe071 mm[Hg] Ron Doreen Other [employer] Other 10-26-2023 13:00-0400Body hjtiad497.91 cmAbdul Doreen Other [employer] Other 10-26-2023 13:00-0400Body mass index (BMI) [Ratio] 30.55 kg/j2Hxbqo Doreen Other [employer] Other 10-26-2023 13:00-0400Body .8 [degF]Ron Doreen Other [employer] Other 10-26-2023 13:00-0400Body ebhiiu21.18 kgAbdul Doreen Other [employer] Other 10-26-2023 13:00-0400Diastolic blood qbywxsbv81 mm[Hg] Ron Doreen Other [employer] Other 10-26-2023 13:00-0400Respiratory rate18 /minAbdul Doreen Other [employer] Other 10-26-2023 13:00-1305BoD1% (BldA) [Mass fraction]98 % Ron Doreen Other [employer] Other 10-26-2023 13:00-0400Systolic blood uctnrrvn319 mm[Hg] Ron Doreen Other [employer] Other 09-18-2023 11:40-0400Body .91 cmAbdul Doreen Other [employer] Other 09-18-2023 11:40-0400Body mass index (BMI) [Ratio] 29.89 kg/f2Dyesw Doreen Other [employer] Other 09-18-2023 11:40-0400Body wighsitpgkx70.3 [degF]Ron Doreen Other [employer] Other 09-18-2023 11:40-0400Body nzyjjk16.28 kgAbdul Doreen Other [employer] Other 09-18-2023 11:40-0400Diastolic blood drxyegoi72 mm[Hg] Ron Doreen Other [employer] Other 09-18-2023 11:40-0400Respiratory rate18 /minAbdul Doreen Other [employer] Other 09-18-2023 11:40-2031YvW9% (BldA) [Mass fraction]99 % Ron Doreen Other [employer] Other 09-18-2023 11:40-0400Systolic blood oopadfhi178 mm[Hg] Ron Doreen Other [employer] Other 08-31-2023 15:20-0400Body uwsodp886.91 cmAbdul Doreen Other [employer] Other 08-31-2023 15:20-0400Body mass index (BMI) [Ratio] 29.92 kg/c3Vwjjv Doreen Other [employer] Other 08-31-2023 15:20-0400Body qxtiqjfcblj57.5 [degF]Ron Doreen Other [employer] Other 08-31-2023 15:20-0400Body lcnaqb84.37 kgAbdul Doreen Other [employer] Other 08-31-2023 15:20-0400Diastolic blood keevddgu43 mm[Hg] Ron Doreen Other [employer] Other 08-31-2023 15:20-0400Respiratory rate18 /minAbdul Doreen Other [employer] Other 08-31-2023 15:20-4790ZfC0% (BldA) [Mass fraction]99 % Ron Doreen Other [employer] Other 08-31-2023 15:20-0400Systolic blood hzvozlqr809 mm[Hg] Ron Doreen Other [employer] Other 07-25-2023 11:40-0400Body epuccp991.91 cmAbdul Doreen Other [employer] Other 07-25-2023 11:40-0400Body mass index (BMI) [Ratio] 30.52 kg/b4Ddmgg Doreen Other [employer] Other 07-25-2023 11:40-0400Body fabmiclvguf66.9 [degF]Ron Doreen Other [employer] Other 07-25-2023 11:40-0400Body qamdxn75.09 kgAbdul Doreen Other [employer] Other 07-25-2023 11:40-0400Diastolic blood mcnkbyas93 mm[Hg] Ron Doreen Other [employer] Other 07-25-2023 11:40-0400Respiratory rate18 /minAbdul Doreen Other [employer] Other 07-25-2023 11:40-1036XpX9% (BldA) [Mass fraction]98 % Ron Doreen Other [employer] Other 07-25-2023 11:40-0400Systolic blood uoprttkk527 mm[Hg] Ron Doreen Other [employer] Other 07-01-2023 09:00-0400Body uvrvji697.91 cmAbdul Doreen Other [employer] Other 07-01-2023 09:00-0400Body mass index (BMI) [Ratio] 30.36 kg/v6Mqdys Doreen Other [employer] Other 07-01-2023 09:00-0400Body eyrfhf47.64 kgAbdul Doreen Other [employer] Other 07-01-2023 09:00-0400Diastolic blood fldmbivv29 mm[Hg] Ron Doreen Other [employer] Other 07-01-2023 09:00-0400Respiratory rate18 /minAbdul Doreen Other [employer] Other 07-01-2023 09:00-9131WvL1% (BldA) [Mass fraction]98 % Ron Doreen Other [place] [employer] Other 07-01-2023 09:00-0400Systolic blood mm[Hg] Ron Doreen Other [place] [employer] Other 06-27-2023 14:40-0400Body aaoaht036.91 cmAbdul Doreen Other [employer] Other 06-27-2023 14:40-0400Body mass index (BMI) [Ratio] 30.55 kg/g6Otsei Doreen Other [place] [employer] Other 06-27-2023 14:40-0400Body xcgxompbjyc22 [degF]Ron Doreen Other [employer] Other 06-27-2023 14:40-0400Body .18 kgAbdul Doreen Other [place] [employer] Other 06-27-2023 14:40-0400Diastolic blood mm[Hg] Ron Doreen Other [employer] Other 06-27-2023 14:40-0400Respiratory rate18 /minAbdul Doreen Other [employer] Other 06-27-2023 14:40-2872AcO3% (BldA) [Mass fraction]98 % Ron Doreen Other [employer] Other 06-27-2023 14:40-0400Systolic blood zjmiadzj166 mm[Hg] Ron Doreen Other [employer] Other 06-01-2023 09:20-0400Body bmgcah010.91 cmAbdul Doreen Other [employer] Other 06-01-2023 09:20-0400Body mass index (BMI) [Ratio] 30.52 kg/j4Bpztl Doreen Other [employer] Other 06-01-2023 09:20-0400Body gevuxaltzyv72.1 [degF]Ron Doreen Other [employer] Other 06-01-2023 09:20-0400Body .09 kgAbdul Doreen Other [employer] Other 06-01-2023 09:20-0400Diastolic blood ywzyiunx25 mm[Hg] Ron Doreen Other [employer] Other 06-01-2023 09:20-0400Respiratory rate18 /minAbdul Doreen Other [employer] Other 06-01-2023 09:20-3059AwD5% (BldA) [Mass fraction]97 % Ron Doreen Other [employer] Other 06-01-2023 09:20-0400Systolic blood ouwnraan035 mm[Hg] Ron Doreen Other [employer] Other 03-16-2023 13:20-0400Body duuzma460.91 cmAbdul Doreen Other [employer] Other 012427-95-6037 13:20-0400Body mass index (BMI) [Ratio] 30.68 kg/v4Qcjus Doreen Other [employer] Other 03-16-2023 13:20-0400Body ruwpfzqsamv55.1 [degF]Ron Doreen Other [employer] Other 265779-22-2001 13:20-0400Body .54 kgAbdul Doreen Other [employer] Other 477879-94-8106 13:20-0400Diastolic blood xubmxcvq31 mm[Hg] Ron Doreen Other [employer] Other 499850-94-9907 13:20-0400Respiratory rate18 /minAbdul Doreen Other [employer] Other 160631-44-4549 13:20-2491ImE8% (BldA) [Mass fraction]99 % Ron Doreen Other [employer] Other 909847-63-0568 13:20-0400Systolic blood rirjdbty015 mm[Hg] Ron Doreen Other [employer] Other 01-30-2023 14:00-0500Body pmzoft374.91 cmAbdul Doreen Other [employer] Other 01-30-2023 14:00-0500Body mass index (BMI) [Ratio] 30.59 kg/f5Bactj Doreen Other [employer] Other 01-30-2023 14:00-0500Body ildduynjnds13.8 [degF]Ron Doreen Other [employer] Other 01-30-2023 14:00-0500Body ezvqez26.27 kgAbdul Doreen Other [employer] Other 01-30-2023 14:00-0500Diastolic blood ijtqkngm20 mm[Hg] Ron Doreen Other [employer] Other 01-30-2023 14:00-0500Respiratory rate18 /minAbdul Doreen Other [employer] Other 01-30-2023 14:00-7147WyY2% (BldA) [Mass fraction]98 % Ron Doreen Other [employer] Other 01-30-2023 14:00-0500Systolic blood therfywi948 mm[Hg] Ron Doreen Other [employer] Other 12-22-2022 16:00-0500Body vzuyay896.91 Leona Monson Other [employer] Other 12-22-2022 16:00-0500Body mass index (BMI) [Ratio] 30.55 kg/n3EwnmnJana Monson Other [employer] Other 12-22-2022 16:00-0500Body naoxafegewa03.8 [degF]Jana Monson Other [employer] Other 12-22-2022 16:00-0500Body iuiapi18.18 kgJana Monson Other [employer] Other 12-22-2022 16:00-0500Diastolic blood nydevxbz01 mm[Hg] Jana Monson Other [employer] Other 12-22-2022 16:00-0500Respiratory rate18 /minEabbie Monson Other [employer] Other 12-22-2022 16:00-5885OqP5% (BldA) [Mass fraction]98 % Jana Monson Other [employer] Other 12-22-2022 16:00-0500Systolic blood iaxbztxh896 mm[Hg] Jana Monson Other [employer] Other 11-16-2022 12:00-0500Body pwafuz254.91 cmAbdul Doreen Other [employer] Other 11-16-2022 12:00-0500Body mass index (BMI) [Ratio] 30.65 kg/h5Eyawm Doreen Other [employer] Other 11-16-2022 12:00-0500Body namowoujxjv22.9 [degF]Ron Doreen Other [employer] Other 11-16-2022 12:00-0500Body hhuehc93.45 kgAbdul Doreen Other [employer] Other 11-16-2022 12:00-0500Diastolic blood mm[Hg] Ron Doreen Other [employer] Other 11-16-2022 12:00-0500Respiratory rate18 /minAbdul Doreen Other [employer] Other 11-16-2022 12:00-1768BlC0% (BldA) [Mass fraction]96 % Ron Doreen Other [employer] Other 11-16-2022 12:00-0500Systolic blood hbamwkds580 mm[Hg] Ron Doreen Other [employer] Other 08-02-2022 10:20-0400Body biqmsm610.91 cmAbdul Doreen Other [employer] Other 08-02-2022 10:20-0400Body mass index (BMI) [Ratio] 31.54 kg/e5Xlpni Doreen Other [employer] Other 08-02-2022 10:20-0400Body dgiqptaojno30.6 [degF]Ron Doreen Other [employer] Other 08-02-2022 10:20-0400Body nmfwme29.99 kgAbdul Doreen Other [employer] Other 08-02-2022 10:20-0400Diastolic blood bqlyptsv84 mm[Hg] Ron Doreen Other [employer] Other 08-02-2022 10:20-0400Respiratory rate18 /minAbdul Doreen Other [employer] Other 08-02-2022 10:20-9126SdF0% (BldA) [Mass fraction]98 % Ron Doreen Other [employer] Other 08-02-2022 10:20-0400Systolic blood uabybekj752 mm[Hg] Ron Doreen Other [employer] Other 04-14-2022 10:20-0400Body otmedj242.91 cmAbdul Doreen Other [employer] Other 04-14-2022 10:20-0400Body mass index (BMI) [Ratio]31 kg/x3Rlllg Doreen Other [employer] Other 04-14-2022 10:20-0400Body gmtevxclobu21.4 [degF]Ron Doreen Other [employer] Other 04-14-2022 10:20-0400Body cevfyd33.45 kgAbdul Doreen Other [employer] Other 04-14-2022 10:20-0400Diastolic blood mm[Hg] Ron Doreen Other [employer] Other 04-14-2022 10:20-0400Respiratory rate18 /minAbdul Doreen Other [employer] Other 04-14-2022 10:20-4593MiA9% (BldA) [Mass fraction]97 % Ron D[facility] Other 04-14-2022 10:20-0400Systolic blood mm[Hg] Ron Doreen [facility] Other Encounters Encounter DateEncounter TypeCare ProviderFacilityStart: 08-02-2025 End: 64-57-9018domgkjfsezFZNNBellevue Hospitaltart: 07-07-2025 End: 69-18-4070srkdmmqefeBcyenxq M Hoy MD Work Phone: [facility] Work Phone: Start: 07-07-2025 End: 56-66-3863Xcndjqm encounter procedureRon Martinez MD-[facility] Work Phone: Start: 74-15-2450Wrn-patient / Non-visitRon Martinez MD -[facility] [employer] Work Phone: Start: 06-14-2025 End: 41-86-2239Vvkaeedenzel Pope MD Work Phone: [facility]ocrinologyStart: 06-14-2025 End: 45-78-1413Udwfxyjoey Pope MD Work Phone: [facility]ocrinologyStart: 06-14-2025 End: 45-12-2148Loqnfq outpatient visit 25 minutesLorraine Pope MD Work Phone: [facility] EndocrinologyComment on above:Type 2 diabetes mellitus with hyperglycemia, with long-term current use of insulin (HCC) (Primary Dx); Vitamin D deficiency; Microalbuminuria; Hyperlipemia, mixed ; Insulin long-term use (HCC); Primary hypertension ; Pema's disease ; Encounter for dietary consultation; Chronic renal disease, stage IV (HCC)Start: 06-14-2025 End: 34-92-1450xqlwmqfrkoIUZZW F SABBAGHNot AvailableStart: 05-25-2025 End: 11-29-5064lzbgmkkxeoWwbxlpp M Hoy MD Work Phone: [facility] Work Phone: Start: 05-25-2025 End: 30-37-9508Sdjrxbhr ReferredDhruv Barfield MD-[facility] Start: 04-21-2025 End: 81-21-0763oxbyaebntsYciadmt M Hoy MD Work Phone: [facility] Work Phone: Start: 04-21-2025 End: 57-01-2579Irfjcytc ReferredDmitriy Lynne MD-[facility] Start: 03-23-2025 End: 93-61-1543Onlvza outpatient visit 15 minutesEmkatherin Longoria MD Work Phone: [facility] DERMComment on above:Seborrheic keratosis (Primary Dx); Seborrheic keratosis, inflamed; Solar purpura; LentiginesStart: 03-23-2025 End: 67-24-0618vefqvnylcyNOVZJ A PETITTINot AvailableStart: 03-23-2025 End: 53-54-9849Qlzrqa Teri Longoria MD Work Phone: [facility] DERMStart: 03-23-2025 End: 00-91-0120Bomwnmjoey Longoria MD Work Phone: [facility] DERMStart: 03-07-2025 End: 35-46-0515OiwzkoWjddmktoLinda GALLOWAY Work Phone: [facility] CardiologyComment on above:Med RefillStart: 02-25-2025 End: 95-80-7277clkuztrdrwRMUV [facility]tart: 02-15-2025 End: 03-14-7584Bbaqshdenzel Pope MD Work Phone: [facility] ENDOCRINOLOGYStart: 02-15-2025 End: 44-72-0745Cwtxpm flowsheetLorraine Pope MD Work Phone: [facility] ENDOCRINOLOGYStart: 02-15-2025 End: 90-85-1637Djuvjw outpatient visit 25 minutesLorraine Pope MD Work Phone: [facility] ENDOCRINOLOGYComment on above:Type 2 diabetes mellitus with hyperglycemia, with long-term current use of insulin ([facility]) (Primary Dx); Vitamin D deficiency; Microalbuminuria; Hyperlipemia, mixed (CMS/HCC); Primary hypertension ([facility]/HCC); Insulin long-term use ([facility]/HCC); 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[facility]/HCC); Encounter for dietary consultation; Chronic renal disease, stage IV ([facility]/HCC)Start: 02-15-2025 End: 73-28-2517dwxesljnleELRXO F SABBAGHNot AvailableStart: 01-14-2025 End: 64-20-9000oqoeywoztaHfzbfmtrrMercy Health [facility] Work Phone: Start: 01-14-2025 End: 24-39-0101Seadxxu encounter procedureLifebrite [facility] Nephrology Eliel Work Phone: Start: 87-67-3527Miy-patient / Non-visitLifebrite [facility] [employer] Work Phone: Start: 12-21-2024 End: 33-42-9160Pysrbngux encounterJekaila Goldman CMAProMedica Physicians CardiologyStart: 12-12-2024 End: 75-71-6647OgamjnLnirrrr R Redfern IT RISK ADVISOR-FOOD PHOTOGRAPHER Work Phone: [facility] CardiologyComment on above:Med RefillStart: 11-27-2024 End: 26-21-1298mfdhwrjwmeTIDE [facility] Centertart: 11-16-2024 End: 40-95-7083Refxdw flowsLouis Pope MD Work Phone: [facility] ENDOCRINOLOGYStart: 11-16-2024 End: 01-83-9097Urblin Zay Pope MD Work Phone: [facility] ENDOCRINOLOGYStart: 11-16-2024 End: 41-24-7563Wchodi outpatient visit 25 minutesLorraine Pope MD Work Phone: [facility] ENDOCRINOLOGYComment on above:Type 2 diabetes mellitus with hyperglycemia, with long-term current use of insulin (CMS/HCC) (Primary Dx); Vitamin D deficiency; Microalbuminuria; Hyperlipemia, mixed (CMS/HCC); Primary hypertension (CMS/HCC); Insulin long-term use (CMS/HCC); 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CMS/HCC); Encounter for dietary consultation; Chronic renal disease, stage IV (CMS/HCC)Start: 11-16-2024 End: 50-22-8759axhmvojohpDVUHURonna Maya AvailableStart: 09-28-2024 End: 61-53-1561Fackxy flowsGurinder Lai DPM Work Phone: [facility] PODIATRYStart: 09-28-2024 End: 57-37-0597Mlklwo flowsGurinder Lai DPM Work Phone: [facility] PODIATRYStart: 09-28-2024 End: 96-21-6622Svzswap encounter procedureGa Lai DPM Work Phone: [facility] PODIATRYComment on above:Onychomycosis (Primary Dx); Pain in both feet; Corns and callosities; Type 2 diabetes mellitus without complication, with long-term current use of insulin (CMS/HCC)Start: 09-28-2024 End: 23-11-2805qkcqsftsybLWDNKXASL H SMITHNot AvailableStart: 09-05-2024 End: 54-42-6076SlshpsLkumaxouAniyah GALLOWAY Work Phone: [facility] CardiologyComment on above:Med RefillStart: 07-13-2024 End: 86-18-7623Tjpdezjoey Pope MD Work Phone: [facility] ENDOCRINOLOGYStart: 07-13-2024 End: 88-40-5966Cxjnll flowsheetLorraine Pope MD Work Phone: [facility] ENDOCRINOLOGYStart: 07-13-2024 End: 79-03-0179Dmzdfn outpatient visit 25 minutesLorraine Pope MD Work Phone: [facility] ENDOCRINOLOGYComment on above:Type 2 diabetes mellitus with hyperglycemia, with long-term current use of insulin (CMS/HCC) (Primary Dx); Vitamin D deficiency; Microalbuminuria; Hyperlipemia, mixed (CMS/HCC); Primary hypertension (CMS/HCC); Insulin long-term use (CMS/HCC); 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CMS/HCC); Encounter for dietary consultation; Chronic renal disease, stage IV (CMS/HCC)Start: 07-13-2024 End: 92-12-8015arndtvexyjLWBDI F SABBAGHNot AvailableStart: 06-25-2024 End: 10-96-1929Qhshof flowsGurinder Lai DPM Work Phone: [facility] PODIATRYStart: 06-25-2024 End: 98-63-1545Vdzwph flowsGurinder Lai DPM Work Phone: [facility] PODIATRYStart: 06-25-2024 End: 88-65-3793Sdwkyvu encounter procedureGa Lai DPM Work Phone: [facility] PODIATRYComment on above:Onychomycosis (Primary Dx); Pain in both feet; Corns and callosities; Type 2 diabetes mellitus without complication, with long-term current use of insulin (CMS/HCC)Start: 06-25-2024 End: 76-10-5546gqmfolfixzQDZEDNIJO H SMITHNot AvailableStart: 06-04-2024 End: 98-12-6565Zhygmo Teri Longoria MD Work Phone: [facility] DERMStart: 06-04-2024 End: 44-03-4837Ijdorg flowsheetEmily Amina Longoria MD Work Phone: [facility] DERMStart: 06-04-2024 End: 65-35-8666Eysjox outpatient visit 15 minutesEmily Amina Longoria MD Work Phone: [facility] DERMComment on above:Granuloma annulare (Primary Dx)Start: 05-25-2024 End: 17-60-5117Ayjnvzr encounter procedureEmily Amina Longoria MD Work Phone: [facility] DERMComment on above:Rash and other nonspecific skin eruption (Primary Dx)Start: 03-18-2024 End: 23-24-3186ZgmkhsFxgfttpoAniyah GALLOWAY Work Phone: [facility] Physicians CardiologyComment on above:Med RefillStart: 01-17-2024 End: 48-24-0428aaxxjiyvvmDYKK [facility]tart: 01-17-2024 End: 72-94-6897Hrnmin outpatient visit 15 minutesRobsharan Rueda MD Work Phone: [facility] Phys[facility] CardiologyComment on above: Paroxysmal atrial fibrillation (CMS-HCC) (Primary Dx); Stage 4 chronic kidney disease (CMS-HCC); 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); Other forms of angina pectoris (CMS-HCC); Essential hypertension; Atherosclerosis of [place] coronary artery of [place] heart without angina pectoris; H/O four vessel coronary artery bypass graft; Hypertensive urgency; Shortness of breath; Localized edemaStart: 01-16-2024 End: 61-93-6043Bmmzehfaz encounterJekaila Goldman CMAProMedica Physicians CardiologyStart: 51-78-9083MgqlnzVwlcgnz P Kyser PA-C Work Phone: [facility] CardiologyComment on above:Med RefillStart: 11-18-2023 End: 22-47-3981bbvirplkhiHqhok Doreen Other [facility] Other Start: 39-79-3184Fetvle outpatient visit 15 minutes Ron QadirFPG NephrologyStart: 11-04-2023(INJECTION) INJECTIONAbdul QadirFPG NephrologyStart: 11-04-2023 End: 40-54-0982legmtkgjryXamjv Doreen Other [facility] Other Start: 10-15-2023 End: 75-14-8869slkannpcseYrbii Doreen Other [facility] Other Start: 06-33-1628Ftxgpq outpatient visit 15 minutes Ron QadirFPG NephrologyStart: 10-08-2023 End: 30-64-8311ftszbaumuvWtxc Bakhous Other [facility] Other Start: 46-21-8217Bsjayyrkn encounterAziz BakhousFPG NephrologyStart: 09-15-2023 End: 40-16-4424szquklagqoYzzdc Doreen Other [facility] Other Start: 85-43-6836Vzakodatd encounterAbdul QadirFPG NephrologyStart: 09-09-2023 End: 34-07-2842fkpxxnmzxgVwxkr Doreen Other [facility] Other Start: 60-09-1365Rimxdblhv encounterAbdul QadirFPG NephrologyStart: 08-27-2023(INJECTION) INJECTIONAziz BakhousFPG NephrologyStart: 08-27-2023 End: 50-25-1388klqfqnkfqjYgtj Bakhous Other [facility] Other Start: 08-15-2023(INJECTION) INJECTIONAbdul QadirFPG NephrologyStart: 08-15-2023 End: 35-82-7802dlkftmzdexBmkav Doreen Other [employer] Other Start: 08-13-2023(INJECTION) INJECTIONAbdul QadirFPG NephrologyStart: 08-13-2023 End: 66-35-0607vycpbkiqcpTclee Doreen Other [employer] Other Start: 08-01-2023 End: 09-86-0898fpvmlmbcmmFwqat Doreen Other [employer] Other Start: 84-51-9511Fsrmoq outpatient visit 15 minutes Ron QadirFPG NephrologyStart: 06-24-2023 End: 66-10-8183qhgapwngjiAckjy Doreen Other [place] [employer] Other Start: 75-22-0333Foejbr outpatient visit 10 minutes Ron QadirFPG NephrologyStart: 06-06-2023 End: 17-51-4870guysrrioqkYkmne Doreen Other [employer] Other Start: 96-13-0987Rlqwqb outpatient visit 15 minutes Ron QadirFPG Nephrology ClydeStart: 04-30-2023 End: 99-88-6150lwktfzmmxdCweqh Doreen Other [facility] [employer] Other Start: 77-53-3044Wblzgj outpatient visit 15 minutes Ron QadirFPG NephrologyStart: 04-06-2023(INJECTION) INJECTIONAbdul QadirFPG NephrologyStart: 04-06-2023 End: 12-32-6457mryyravwchWyduu Doreen Other [employer] Other Start: 56-64-0544Kheiaraot encounterAbdul QadirFPG NephrologyStart: 04-02-2023 End: 59-48-2430tobgevozqjQndjs Doreen Other [employer] Other Start: 69-40-7504Hcxxtl outpatient visit 15 minutes Ron QadirFPG NephrologyStart: 77-63-5213Rswjtuoej encounterAbdul QadirFPG NephrologyStart: 03-07-2023 End: 83-58-9137kxcqclyosvFsewr Doreen Other [employer] Other Start: 70-99-6618Jctygl outpatient visit 15 minutes Ron QadirFPG Nephrology ClydeStart: 01-22-2023 End: 59-76-4756nobxejhizuFJFTU QADIRFacility:Z9Wwrog: 12-20-2022 End: 41-66-5252giwmhvhutwYglyy Doreen Other [employer] Other Start: 57-76-1130Mtkwtr outpatient visit 15 minutes Ron QadirFPG Nephrology ClydeStart: 12-17-2022 End: 92-64-3271fiqjiyqfmtTK DHRUV GUTIERRES .Facility:Q9Rrfxp: 12-10-2022 End: 37-71-0503xlaazjuqehSVRDF QADIRFacility:O3Sjycs: 11-20-2022 End: 33-50-3838pdhwzbckckQZ BENI V WESTFacility:P1Xzwlh: 11-05-2022 End: 97-30-1382qyklrryuuwHsmkn Doreen Other [employer] Other Start: 29-66-3932Sxfaok outpatient visit 15 minutes Ron QadirFPG NephrologyStart: 10-29-2022 End: 51-83-3244halcjqcsgsWA ESSAM ELASHIFacility:C1Vverl: 10-24-2022 End: 86-76-6261drkdoerlthEK LILLIAN MARKER .Facility:P2Xguva: 10-24-2022 End: 79-15-0939upfleqhpreOV DHRUV HOY .Facility:O0Vxzam: 09-27-2022 End: 43-35-4420hunvmykefqYhdwo Iona Other [employer] Other Start: 95-18-5862Pbrtnm outpatient visit 15 minutes Essam ElashiFPG NephrologyStart: 09-18-2022 End: 96-15-3785xltkvaxmyxYTZGR QADIRFacility:Z3Nhjzj: 09-11-2022 End: 71-22-8961yparehpppcTA DHRUV HOY .Facility:H2Ixfjn: 08-22-2022 End: 36-86-3288cyobcqgjnsSniwr Doreen Other [employer] Other Start: 01-43-5269Bfravr outpatient visit 15 minutes Ron QadirFPG NephrologyStart: 08-13-2022 End: 05-64-7787csbeucqwczYPWTN QADIRFacility:A5Rnzpt: 06-25-2022 End: 40-65-5931ukolqqdkziFA DHRUV HOY .Facility:W7Uhhwh: 06-18-2022 End: 67-74-1315kqsgjfeurbFW DHRUV HOY .Facility:B2Fausd: 06-01-2022 End: 69-08-1630gvqngtxevvGM YANET HUERTAFacility:W4Iatjc: 05-28-2022 End: 81-95-3528vidyobilrvGyxqy Doreen Other [employer] Other Start: 05-01-8807Igmydqizp encounterAbdul QadirFPG NephrologyStart: 05-21-2022 End: 81-10-0815lugurtklfsBE DHRUV HOY .Facility:I1Gaeum: 05-16-2022 End: 14-45-0499srglbcligmUwaei Doreen Other [employer] Other Start: 47-74-1391Iuspzeked encounterAbdul QadirFPG NephrologyStart: 05-10-2022 End: 35-25-7863pwoopbisevIytym Doreen Other [employer] Other Start: 86-94-8906Ipceuipam encounterAbdul QadirFPG NephrologyStart: 05-08-2022 End: 16-49-9581bhjxaykibtLzjtv Doreen Other [employer] Other Start: 00-43-4534Adnsra outpatient visit 25 minutes Ron QadirFPG NephrologyStart: 05-02-2022 End: 23-73-2881njxdknikvnZJKKU QADIRFacility:O2Gkhyu: 04-24-2022 End: 32-12-4456jpxndxielrYkke Bakhous Other [employer] Other Start: 83-77-3018Ekmcjwbap encounterAziz BakhousFPG NephrologyStart: 01-18-2022 End: 11-10-9053mtyizfekonBvhkc Doreen Other [employer] Other Start: 12-52-2986Ruhdus outpatient visit 25 minutes Ron QadirFPG Nephrology ClydeStart: 05-21-2017 End: 17-39-2120BhadgkxqswSVSLUPE PHYSICIANFacility:[facility] Procedures DateProcedureProcedure DetailPerforming ClinicianStart: 79-23-4545Ktab bld gluc mntr dev cleared fda spec home useLorraine Pope MD Work Phone: Start: 55-05-9934Olcuz Cherry Gutierres MD Work Phone: Start: 11-27-9030Kqqzx Cherry Gutierres MD Work Phone: Start: 61-37-8698CAOMXABWZEQ SKIN LESIONEmily Amina Longoria MD Work Phone: Start: 88-01-2883Qjuq bld gluc mntr dev cleared fda spec home useLorraine Pope MD Work Phone: Start: 80-06-5244Vdsg bld gluc mntr dev cleared fda spec home useAhfederica Pope MD Work Phone: Start: 68-04-5788Cihp bld gluc mntr dev cleared fda spec home useAhfederica Pope MD Work Phone: Start: 70-13-0945HLRY / NAIL BIOPSYEmkatherin Longoria MD Work Phone: Start: 55-93-8007Pya routine ecg w/least 12 lds w/i&r Thuan Delvalle MD Work Phone: Start: 06-23-9353Umgjstd of coronary artery bypass graftingH/O four vessel coronary artery bypass graftSalfreda Quiles PA-C Work Phone: Start: 94-40-3078Zwmva depression screening assessment Luis Quiles PA-C Work Phone: History of coronary artery bypass graftingH/O four vessel coronary artery bypass graftStepteetee Quiles PA-C Work Phone: History of coronary artery bypass graftingH/O four vessel coronary artery bypass graftRobsharan Rueda MD Work Phone: History of coronary artery bypass graftingH/O four vessel coronary artery bypass graftTimpedro pablo Lazo IT RISK ADVISOR-FOOD PHOTOGRAPHER Work Phone: History of coronary artery bypass graftingH/O four vessel coronary artery bypass graftMarie Garcia IT RISK ADVISOR-FOOD PHOTOGRAPHER Work Phone: Plan of Treatment DateCare ActivityDetailAuthorStart: 03-23-2026 End: 15-02-9710Iiqcipd encounter procedureNOMS SWS DERMStart: 09-13-2025 End: 01-09-1842Fdnlrkt encounter myswodqkk92/08/2025 10:50 AM EST Office Visit [facility] [address] [place] [address] Lorraine Pope MD [address], [address] [place] [address] [facility] [place] EndocrinologyStart: 06-14-2025 End: 08-30-1305Qlkroso encounter procedureNOSAINT LOUIS [facility] ENDOCRINOLOGYComment on above: Type 2 diabetes mellitus with hyperglycemia, with long-term current use of insulin ([facility])Start: 95-11-6116Mdcnbyrwq vaccinationUINTAH BASIN MEDICAL CENTER HealthcareStart: 44-88-0738Bubykwaj identified in Urine by CultureUrine UC Healthtart: 17-10-4330Widxn [facility] Start: 37-78-9971Ykqzu [facility] Centertart: 04-21-2025 Bacteria identified in Urine by CultureUrine UC Healthtart: 03-23-2025 End: 35-35-2723Cusoygs encounter krcexwrim35/17/2025 2:30 PM EDT Office Visit [facility] [address] [place] [address] Greg Longoria MD [address] [place] [address] ArrivedBAPTIST [facility] DERMComment on above:ArrivedStart: 03-16-2025 End: 42-74-8099Txexkrg encounter okcwdrcno21/10/2025 8:35 AM EDT Office Visit [facility] [address] [place] [id number] Greg Longoria MD [address] [place] [address] [facility] DERMStart: 02-15-2025 End: 06-69-4867Czfbxmp encounter procedureREGIONAL H[facility] ENDOCRINOLOGYComment on above: Type 2 diabetes mellitus with hyperglycemia, with long-term current use of insulin ([facility])Start: 71-89-5893Hqajb BMI ScreeningAdult BMI Screening [facility] Campustart: 19-45-2765Upobmtl ScreeningTobacco Screening [facility] SystemStart: 12-31-2024 End: 18-68-2669Tdczica encounter kimjsdahf76/27/2025 10:15 AM EDT Procedure Visit [facility] [address] [place] [address] Ga Lai DPM [address] [place] [address] [facility] SWS PODIATRYStart: 11-16-2024 End: 18-38-6813Iniwamv encounter procedureNOMS ENDOCRINOLOGYComment on above: Type 2 diabetes mellitus with hyperglycemia, with long-term current use of insulin ([facility])Start: 09-28-2024 End: 39-48-6189Xoqyaub encounter procedureNOMS SWS PODIATRYComment on above: ArrivedStart: 07-13-2024 End: 71-75-7530Nvydjoc encounter procedureNOMS ENDOCRINOLOGYComment on above: Type 2 diabetes mellitus with hyperglycemia, with long-term current use of insulin ([facility])Start: 06-25-2024 End: 38-73-3623Ynlpoul encounter procedureNOMS SWS PODIATRYComment on above: ArrivedStart: 58-27-9258SYMRQ-19 Vaccine ( season)COVID-19 Vaccine ( season)[facility] SystemStart: 49-04-1139Qtjusaijp vaccination [facility] HealthcareStart: 06-04-2024 End: 56-53-7100Etohryf encounter procedureNOMS SWS DERMComment on above:Arrived Start: 34-69-0923Xznxv BMI ScreeningAdult BMI ScreeningMercy Health St. [facility] Hospitalca [facility] Start: 69-66-5035Bjewrir ScreeningTobacco ScreeningGrand [facility] SystemStart: 02-21-2024 End: 16-22-3622Ufluund encounter /17/2024 2:00 PM EDT Office Visit [facility] [address] [place] [address] Thuan Delvalle MD [address] [place] [address] [facility] CardiologyStart: 01-24-2024 End: 76-09-4704Haiiv metabolic 2000 panel - Serum or PlasmaBasic Metabolic Panel Lab Routine Stage 4 chronic kidney disease ([facility]) Essential hypertension Ex pected: 01/24/2024 (Approximate), Expires: 01/16/2025[facility] Work Phone: Comment on above:Expected: 01/24/2024 (Approximate), Expires: 01/16/2025Start: 01-24-2024 End: 20-87-5424Izdrwude Zwqiebr4501/24/2024 10:30 AM EDT Clinical Support [facility] [address] [place] [address] [phone] Physicians CardiologyStart: 01-17-2024 End: 67-93-0069Rykzwml encounter pholfnuhq73/12/2024 1:00 PM EDT Office Visit [facility] [address] [place] [address] Sarthak Rueda MD [address] [place] [address] Tuhan Delvalle MD [address] [place] [address] [facility] Start: 02-12-4775ZHQON-19 Vaccine ( season)COVID-19 Vaccine ( season)[facility] SystemStart: 78-50-5058Fdmvyrcxj vaccination Influenza VaccineProChillicothe Hospital SystemStart: 44-90-5239Uhiautbtjk Screening Depression ScreeningProChillicothe Hospital SystemStart: 06-20-6526Flei Risk Screening Fall Risk ScreeningProChillicothe Hospital SystemStart: 53-68-9992Mtisavuarybcqy of varicella zoster vaccineZoster (Shingles) Vaccine (1 of 2)[facility] SystemStart: 01-01-4293HCkW,Tdap and Td Vaccines (1 - Tdap)DTaP,Tdap and Td Vaccines (1 - Tdap)[facility] Enable Healthcare SystemStart: 23-91-6492Oajxm BMI Follow Up PlanAdult BMI Follow Up PlanUNC Hospitals Hillsborough Campustart: 13-67-4011Qkdrdegpqn ScreeningDepression ScreeningGrand [facility] Hospital SystemStart: 03-10-1945Medicare Annual Wellness VisitMedicare Annual Wellness VisitBrecksville [facility] Dermatopathology examDermatopathology exam Pathology and Cytology Timed Rash and other nonspecific skin eruption ReleaseUpon Ordering for 1 Occurrences starting 05/25/2024[facility] [employer] Work Phone: commpvp on above:Release Upon Ordering for 1 Occurrences starting 05/25/2024 End: 49-89-1838Ewkgt panelLipid panel Lab Routine Medication management 1 Occurrences starting 2024 until 12/12/2025[facility] HospitalEasyaula Work Phone: Comment on above:1 Occurrences starting 2024 until 12/12/2025 End: 33-77-2175Cbahtdbhq [Mass/volume] in Serum or PlasmaMagnesium Lab Routine Medication management 1 Occurrences starting 2024 until 12/12/2025 [place] Work Phone: Comment on above:1 Occurrences starting 2024 until 12/12/2025Renal function 1999 panel - Serum or [facility] HospitalRenal function 1999 panel - Serum or [facility] Immunizations Immunization DateImmunizationNotesCare LxlmyakpJdzlefxh22-47-2025nbkejmgds virus vaccine, unspecified formulationLorraine Pope MD Work Phone: noSt. Louis Children's HospitalQsnggoyvip90-70-3066orljmtf vaccine or immune globulinGa Lai DPM Work Phone: noSt. Louis Children's HospitalAqkcwmctzn42-70-3073xzncpde vaccine or immune globulinGa Lai DPM Work Phone: [facility] CenterMrbzihmhlm38-37-3582Lejhrlwj trivalent influenza vaccine, adjuvanted, preservative freeStephen Kb PA-C Work Phone: [facility] HospitalVixspr97-68-8828daovumnqo virus vaccine, unspecified formulationStephen Kb PA-C Work Phone: [facility] HospitalVxaetk33-79-6786Xosypfjp trivalent influenza vaccine, adjuvanted, preservative freeStephen Kb PA-C Work Phone: [facility] HospitalXpenwq43-43-8400rjwazcxmx, injectable, quadrivalent, preservative freeCassandra Lai M Work Phone: [facility] CenterDqxpmoegcz23-53-9975Wtcjyjpn trivalent influenza vaccine, adjuvanted, preservative freeStephen Kb PA-C Work Phone: [facility] HospitalJshycu43-34-6207hjmnmnwblhti conjugate vaccine, 13 valentStephen Kb PA-C Work Phone: [facility] HospitalTenrbc87-29-0656ehaktvqjt, high dose seasonal, preservative-freeStephen Kb PA-C Work Phone: [facility] HospitalGbjjon46-33-7900jzsbjnjnk, high dose seasonal, preservative-freeStephen Kb PA-C Work Phone: [facility] HospitalVjmlpt02-33-0188xtdwmgemx, high dose seasonal, preservative-freeStephen Kb PA-C Work Phone: [facility] HospitalPkucxp77-12-9476fnnwaluer, seasonal, injectableStephen Kb PA-C Work Phone: [facility] HospitalPpvmtd48-58-9459fcsvkzlhw, seasonal, injectableStephen Kb PA-C Work Phone: [facility] HospitalSyapky46-91-2304kcrrszemo virus vaccine, unspecified formulationStephen Kb PA-C Work Phone: [facility] HospitalGdfwtj35-86-2831trbfhjqfwxdu polysaccharide vaccine, 23 valentStephen Kb PA-C Work Phone: [facility] HospitalB&W TekHqyycu72-88-3903aiikmucyt virus vaccine, unspecified formulationStephen Kb PA-C Work Phone: [phone] Health St. Charles HospitalGeneriMed Mtagzc53-04-1354cjudmqgso virus vaccine, unspecified formulationStephen Kb PA-C Work Phone: [phone] Health St. Charles HospitalB&W TekSvwxfl34-41-5419upftlwuxg virus vaccine, unspecified formulationStephen Kb PA-C Work Phone: [phone] Health St. Charles HospitalB&W TekTvthdx29-18-6958idrxgtcjd virus vaccine, unspecified formulationStephen Kb PA-C Work Phone: [facility] HospitalB&W TekOnyrqa61-59-6683ryyksoxzr virus vaccine, unspecified formulationStephen Kb PA-C Work Phone: [facility] HospitalGeneriMed Lucoso23-39-3854hsbcnggee virus vaccine, unspecified formulationStephen Kb PA-C Work Phone: [facility] HospitalGeneriMed Dchgce66-51-2835kbhkznomd virus vaccine, unspecified formulationStephen Kb PA-C Work Phone: [phone] Health St. Charles HospitalB&W TekYgwjaf94-54-6896tnbgrejqndlt polysaccharide vaccine, 23 valentStephen Kb PA-C Work Phone: [facility] HospitalGeneriMed [facility] Payers DatePayer CategoryPayerPolicy [id number]-pay2022MedicaidAETNA MEDICARE ADVANTAGE [id number] 2022Medicare [id number] 2022Medicare [facility] [id number] [id number] 2..[id number] 2.0.1.098467.3.5[id number] 2.0.1.613237.3.57[id number] 2..1.387745.3.57[id number] 2..1.452195.3.57[id number] 2.0.1.951364.3.57[id number] 2.0.1.399701.3.57[id number] 2.0.1.887202.3.57[id number] 2.0.1.490089.3.57[id number] 2.16.840.1.691850.3.57[id number] 2.16.840.1.829253.3.57[id number] 2.16.840.1.879025.3.579.2.65550-94-5399Gjsprtm0355610 2.16.840.1.658525.3.579.[id number] 2.16.840.1.731601.3.57[id number] 2.16.840.1.590738.3.57[id number] 2.16.840.1.235705.3.57[id number] 2.16.840.1.363015.3.57[id number] 2.16.840.1.015040.3.57[id number] 2.16.840.1.268377.3.57[id number] 2.16.840.1.775732.3.579.2.52[id number] 2.16.840.1.896428.3.57[id number] 2.16.840.1.271107.3.579.2.131518-06-4918Jvukkhp1338751 2.16.840.1.656228.3.57[id number] 2.16.840.1.053063.3.57[id number] 2.16.840.1.793262.3.57[id number] ae2le7gf-qmx8-843z-odc1-r8s7mwk6x967WtofmdiCnvgaulPjmoam of [id number] 100g8o97-vh91-61k1-64p4-[id number] 2.16.840.1.23[id number] 2.16.840.1.805170.3.579.2.531 Social History DateTypeDetailFacilityUnknown if ever smokedNew [place] [employer] Other Start: 06-25-2024 End: 34-63-1059Pcr Assigned At BirthNothe rehabilitation institute [employer] Other Start: 03-14-2023 End: 04-80-9654Lyipaxs smoking status NHISEx-smokerResearch Medical Center End: 39-75-0196Cqfetdo of tobacco useCurrent smokerBrecksville VA / [facility]ille Hospital End: 07-23-9823Jrieoeo of tobacco useCigarette SmokerBrecksville VA / [facility] Start: 03-14-2023 End: 25-44-3083Amxebak use and exposureSmokeless tobacco non-userGrand [facility] Hospital SystemStart: 06-25-2024 End: 17-76-7665Txoyjxgrn beverage intakeNot AskedNOSD HealthcareStart: 06-25-2024 End: 57-66-7992Ubrcsvo of Social functionUNC Hospitals Hillsborough Campustart: 55-37-3834Slvskxv Commentcaffeine intake: 1-2 cups per dayUINTAH BASIN MEDICAL CENTER HealthcareStart: 31-61-9706Ckr assigned at birthNot on fileUNC Hospitals Hillsborough Campustart: 03-19-2023 End: 41-54-7130Dzuvzxpuw beverage intakeEx-drinker (finding)[facility] SystemDo you belong to any clubs or organizations such as protestant groups, unions, fraternal or athletic groups, or school groups?NoProMedthomasville regional medical center Health SystemAre you now , , , , never or living with a partner?MarriedGrand Lake Joint Township District Memorial Hospital SystemHow hard is it for you to pay for the very basics like food, housing, medical care, and heatingNot hard at allProChillicothe Hospital SystemDo you feel stress - tense, restless, nervous, or anxious, or unable to sleep at night because yourmind is troubled all the time - these days [OSQ]Not at allGrand Lake Joint Township District Memorial Hospital SystemStart: 05-21-2017 End: 84-09-6948SvaSggzwx (finding)[facility] Centertart: 88-48-3904Xeb Assigned At [facility] Goals DatePatient GoalDesired Activity/StatePersonal health goalComment on above: Evaluation of progress towards goal: return home with homecare and support from h[facility], children and grandchildren Clinical Notes 01-18-2022 to 08-02-2025 Note Date & FuauGsqoBdxmokwb54-45-9840 NoteSUBJECTIVE Reason for Visit: Kylah Berger is a 79 y.o. year old female patient being seen for 6 month visit. HPI: Kylah Berger is a 79 y.o. year old female with significant medical history of CAD status post CABG (4 vessels) in 2020, diabetes, hypertension, post-op paroxysmal A-fib. 08/02/2025 office visit: Patient seen and evaluated in the office today, accompanied by her . She has no complaints today. Lower extreme edema has resolved. She continues on 40 mg Lasix daily Otherwise, denies chest pain, shortness of breath, palpitations. She does report that her blood pressures drop sharply after she takes her medications in the am - as low as the 90s systolic where she gets symptomatic with lightheadedness and dizziness. She has recently been holding one of her blood pressure medications but is unsure of which one. She was instructed to call the office when she gets home so we can make adjustments accordingly based on which medication she is holding 02/25/2025 office visit (Dr. Catherine): She has put on 5 pounds since November and 15 pounds since May of last year. Her Lasix was recently increased due to fluid retention. This has helped. She denies chest pain. She has no orthopnea, paroxysmal external dyspnea, and her lower extremity edema has improved. 11/27/2024 office visit: The patient was seen [...] 11/17/2024 ED visit for elevated blood pressure: Patient checked her BP at home and [...] kidney injury. 05/11/2024 office visit (Dr. Catherine): The patient is here for a follow-up after being discharged from [facility] in February 2024. She was [...] measurements ranging from the 160s to 170s. Medical History[1] Surgical History[2] Problem List[3] Family history is unknown by patient. Social History[4] OBJECTIVE Visit Vitals Smoking Status Former Physical Exam Constitutional: General Appearance: well-developed, appears stated age. Level of Distress: no acute distress. Neck: Jugular Veins: normal jugular venous pressure. Lungs: Auscultation: no rales or rhonchi and normal breath sounds. Cardiovascular: Rate And Rhythm: regular Heart Sounds: normal S1 and s2; Systolic Murmur: not heard. Diastolic Murmur: not heard. Extremities: no edema Peripheral Pulses: Pulses: full and equal in all extremities except if noted. Abdomen: Inspection and Palpation: non distended or tender and soft. Musculoskeletal: Inspection: no joint tenderness or swelling. Neurologic: Gait: normal gait. Psychiatric: Mental Status: alert and normal affect. Skin: Inspection and Palpation: warm and dry. Allergies: Allergies[5] Outpatient Medications: Current Outpatient Medications Medication Instructions allopurinol (Zyloprim) 300 mg tablet 100 tablets, oral, Daily aspirin 81 mg, oral, Daily RT atorvastatin (LIPITOR) 80 mg, oral, Nightly carvedilol (COREG) 25 mg, oral, 2 times daily with meals cloNIDine (CATAPRES) 0.1 mg, oral, Daily PRN diclofenac (Voltaren) 75 mg EC tablet 1 tablet, oral, 2 times daily ferrous sulfate 325 (65 Fe) MG tablet 1 tablet, oral, 2 times daily furosemide (LASIX) 50 mg, oral, Daily, Patient is taking 50 mg 1 x per day hydrALAZINE (APRESOLINE) 10 mg, oral, 3 times daily hydrALAZINE (APRESOLINE) 25 mg, oral, 3 times daily hydrALAZINE (APRESOLINE) 50 mg, oral, 3 times daily insulin degludec ( (more content not included)...[facility]09-08-2025 History of Present illness Narrative* Lorraine Pope [...] 10-12-15 units tid plus ISS#2, meter 0-17-83%, xyv527. lab on 01/2024 GFR 23, LDL 69, [...] said last GFR around 30 with her shipwright helper. Interim History: 03/2023 Follow-up visit on 03/12/2023 [...] the office 7.1, blood sugar 376. Meter imfnru155, highest 233, average 1.1, average 169. She [...] in the office 7.5. Meter lowest 100, rsylohx967 while she is on prednisone, average 1.2 [...] she states GFR is 30, per her shipwright helper. Interim History: 08/24 Followup visit on 08/25/18 [...] reading of her . Lab done in [facility] BUN 28/creatinine 1.43, GFR 36, total cholesterol 188, triglycerides 323, LDL 76, SDL 48, TSH 0.606, free T4 1.5 [0.78-2.19], albumin/creatinine 161, TPO less than 6, thyroglobulin antibody less than 1. She is on Levemir 40 units twice a day, Novolog 10-16 units every meal, levothyroxine 150 mcg daily. interim Follow-up visit in 09/25/17 for CGM interpretation Freeyle, Average 162 estimated A1c 7.2, standard deviation, [...] MG capsule 1 capsule, Every 12 hours ukujnkuefixi-nlhs-ybcdsqqe-folic acid (Centrum) chewable tablet 1 tablet, Daily [...] disease) Chronic kidney disease, stage III (moderate) ([facility]-H[facility]) Current use of insulin (HCC) Diabetes [...] deficiency Microalbuminuria Hyperlipemia, mixed Insulin long-term use ([facility]) Primary hypertension Pema's disease Encounter for dietary consultation Chronic renal disease, stage IV ([facility]) Follow up in about 3 months (around 09/13/2025). documented in this encounterResearch Medical [id number] History of Present illness Narrative* Greg Longoria MD - 03/23/2025 2:30 PM EDT Skin Check Location: Patient requests a skin examination of the face and arms Dermatologic history: history of Actinic Keratosis, history of Basal Cell Carcinoma, history of Squamous Cell Carcinoma Last visit: 1 year ago Established patient Lesions: Location: Left muslim Duration: 1 year Quality: denies pain, denies [...] or higher 2. SEBORRHEIC KERATOSIS, INFLAMED Left Caodaism Ricketts and brown stuck on verrucous scaly papule [...] limited to risks of scarring, darker or practice performance manager pigmentary changes, recurrence, incomplete removal and infection. [...] or tenderness Cryotherapy, skin lesion - Left Caodaism 3. SOLAR PURPURA (2) Left Forearm - [...] Next Visit: 1 year documented in this encounterResearch Medical [id number] [facility] Chief Complaint: Patient [...] or gallops. RESPIRATORY: CTAB, (more content not included)...[facility]05-12-2025 History of Present illness Narrative* Lorraine Pope [...] 10-12-15 units tid plus ISS#2, meter 0-17-83%, [id number]. lab on 01/2024 GFR 23, LDL 69, [...] said last GFR around 30 with her shipwright helper. Interim History: 03/2023 Follow-up visit on 03/12/2023 [...] the office 7.1, blood sugar 376. Meter [id number], highest 233, average 1.1, average 169. She [...] in the office 7.5. Meter lowest 100, [id number] while she is on prednisone, average 1.2 [...] she states GFR is 30, per her shipwright helper. Interim History: 08/24 Followup visit on 08/25/18 [...] reading of her . Lab done in [facility] BUN 28/creatinine 1.43, GFR 36, [...] MG capsule 1 capsule, Every 12 hours hsssoehtdcia-tmry-crupjubb-folic acid (Centrum) chewable tablet 1 tablet, Daily [...] carcinoma CAD (coronary artery disease) ([facility]) Chronic kidney disease, stage III (moderate) (HCC) ([facility]) Current use of insulin ([facility]) Diabetes ([facility]) Frozen shoulder GERD (gastroesophageal reflux disease) Gout 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[facility]) HLD (hyperlipidemia) ([facility]) HTN (hypertension) ([facility]) Hypoglycemia Hypothyroidism ([facility]) Obesity with body mass index (BMI) of 30.0 to 39.9 Squamous cell skin cancer Thyroid disease ([facility]) Type 2 diabetes mellitus with other diabetic kidney complication ([facility]) Vitamin D deficiency Past Surgical [...] long-term current use of insulin ([facility]) - POCT glucose manually resulted - POCT glycosylated hemoglobin (Hb A1C) docked device Vitamin D deficiency Microalbuminuria Hyperlipemia, mixed ([facility]) Primary hypertension ([facility]) Insulin long-term use ([facility]) 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[facility]) Encounter for dietary consultation Chronic renal disease, stage IV ([facility]) Said her last GFR 27 [...] 4 months (around 06/18/2025). documented in this encounterNOMS [id number] Miscellaneous Notes* Telephone Encounter - Cary Goldman CMA - 12/21/2024 10:16 AM EDT Phoned pt and lm on vm to call office for any further refills. Letter mailed to pt. documented in this [facility]03-17-2025 Telephone encounter Note* Telephone Encounter - Cary Goldman CMA - 12/21/2024 10:16 AM EDT Phoned pt and lm on vm to call office for any further refills. Letter mailed to pt. [facility]03-08-2025 Miscellaneous Notes* Telephone Encounter - Philomena Pantoja RN - 12/12/2024 1:38 PM EST Last OV 4/12/24 Mg 3/ Mg pended; refill letter mailed documented in this [facility]03-08-2025 Miscellaneous Notes* Telephone Encounter - Philomena Pantoja RN - 12/12/2024 1:38 PM EST Last OV 4/09/29 Lipid profile 07/08/23 Lipid panel pended; refill letter mailed documented in this [facility]03-08-2025 Telephone encounter Note* Telephone Encounter - Philomena Pantoja RN - 12/12/2024 1:38 PM EST Last OV 4/12/24 Mg 3/24 Mg pended; refill letter mailed [facility] [id number] Telephone encounter Note* Telephone Encounter - Philomena Pantoja RN - 12/12/2024 1:38 PM EST Last OV 01/17/24 Lipid profile 07/08/23 Lipid panel pended; [facility] [id number] NotePatient here for 6 mo follow up CAD, hypertension, MR, and diastolic dysfunction. Had echo in Jun 2024. She presented to [facility] ED last week with concerns of elevated BP. She takes clonidine PRN for elevated SBP > 200. Denies chest pain and SOB. Does feel palpitations. She wonders if the clonidine patches would help her. Review of Systems Cardiovascular: Positive for irregular heartbeat and palpitations. Musculoskeletal: Positive for myalgias. All other systems reviewed and are negative.[facility] 11-27-2024 NoteSUBJECTIVE Reason for Visit: Kylah Berger [...] for a follow-up after being discharged from [facility] in February 2024. She was [...] Diagnosis Acquired hypothyroidism Anemia Arthritis Atherosclerosis of [place] coronary artery of [place] heart without angina pectoris Combined forms of [...] (CATAPRES) 0.1 mg, o (more content not included)...[facility]02-10-2025 History of Present illness Narrative* Lorraine Pope [...] 10-12-15 units tid plus ISS#2, meter 0-17-83%, [id number]. lab on 01/2024 GFR 23, LDL 69, [...] said last GFR around 30 with her shipwright helper. Interim History: 03/2023 Follow-up visit on 03/12/2023 [...] the office 7.1, blood sugar 376. Meter [id number], highest 233, average 1.1, average 169. She [...] in the office 7.5. Meter lowest 100, [id number] while she is on prednisone, average 1.2 [...] she states GFR is 30, per her shipwright helper. Interim History: 08/24 Followup visit on 08/25/18 [...] reading of her . Lab done in [facility] BUN 28/creatinine 1.43, GFR 36, [...] MG capsule 1 capsule, Every 12 hours qndesmyokjmk-fuqu-bdunosvj-folic acid (Centrum) chewable tablet 1 tablet, Daily [...] Chronic kidney disease, stage III (moderate) (HCC) ([facility]) Current use of insulin (CMS/HCC) Diabetes (CMS/HCC) [...] 4 months (around 03/16/2025). documented in this encounterResearch Medical [id number] History of Present illness Narrative* Ga Josh Lai, DPM - 09/28/2024 11:30 AM EST Images [...] needed if problems arise. documented in this encounterResearch Medical [id number] Miscellaneous Notes* Telephone Encounter - Bridgett Hoffman LPN - 09/05/2024 8:[address] [facility] 01/17/24 Cmp 01/01/24 documented in this encounterB[facility] Telephone encounter Note* Telephone Encounter - Bridgett Hoffman LPN - 09/05/2024 8:[address] [facility] 01/17/24 Cmp 01/01/24 [facility]10-07-2024 History of Present illness Narrative* Lorraine Pope [...] 10-12-15 units tid plus ISS#2, meter 0-17-83%, [id number]. lab on 01/2024 GFR 23, LDL 69, [...] said last GFR around 30 with her shipwright helper. Interim History: 03/2023 Follow-up visit on 03/12/2023 [...] the office 7.1, blood sugar 376. Meter [id number], highest 233, average 1.1, average 169. She [...] in the office 7.5. Meter lowest 100, while she is on prednisone, average 1.2 [...] she states GFR is 30, per her shipwright helper. Interim History: 08/24 Followup visit on 08/25/18 [...] reading of her . Lab done in [facility] BUN 28/creatinine 1.43, GFR 36, [...] MG capsule 1 capsule, Every 12 hours zhtrlnzqefhf-khgd-vgxgkhna-folic acid (Centrum) chewable tablet 1 tablet, Oral, [...] cell skin cancer Thyroid disease ([facility]) Type 2 diabetes mellitus with other diabetic kidney complication ([facility]) Vitamin D deficiency Past Surgical [...] long-term current use of insulin ([facility]) - POCT glucose manually resulted We will continue long-acting 30 units does not remember the name, short-acting 07/18/15 according to meal size Vitamin D deficiency Microalbuminuria Hyperlipemia, mixed ([facility]) Primary hypertension ([facility]) Insulin long-term use ([facility]) 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 documented in this encounterResearch Medical [id number] History of Present illness Narrative* Ga Lai [...] over the callous site. documented in this [facility]08-29-2024 History of Present illness Narrative* Greg Longoria [...] compliant with wound care. Location: Right Hypothenar [place] Procedure Performed: Punch biopsy Date of Procedure: 05/25/2024 Medications: Betamethasone All pertinent medical history, medications, and allergies were reviewed. General Exam: alert , oriented to person, place, and time , normal affect, well appearing Unaccompanied A focused exam completed based on patient reported problems, see below: 1. Granuloma annulare Left Hand - Anterior, Right Hand - Anterior Ricketts indurated annular plaques. Flaring today, but improved [...] for any new/changing lesions documented in this encounterResearch Medical [id number] History of Present illness Narrative* Greg Longoria [...] and other nonspecific skin eruption Right Hypothenar [place] Ricketts plaques Biopsy today, see procedure note. Start Betamethasone cream bid when flared, hold when clear. Lesion biopsy - Right Hypothenar [place] Type of biopsy: punch Informed consent: discussed [...] Visit: pending biopsy results documented in this encounterResearch Medical [id number] Miscellaneous Notes* Telephone Encounter - Inocente Hoffman LPN - 03/18/2024 12:01 PM EDT Asad 01/17/24 Mg 07/08/23 -per 07/09/23 refill encounter Pt needs mg, orders in place. documented in this encounterB[facility] Telephone encounter Note* Telephone Encounter - Inocente Hoffman LPN - 03/18/2024 12:01 PM EDT Asad 01/17/24 Mg 07/08/23 -per 07/09/23 refill encounter Pt needs mg, orders in place. [facility]04-12-2024 History of Present illness Narrative* Thuan Delvalle MD - 01/17/2024 1:00 PM EDT Kylah Floresee Date of visit: 01/17/2024 Date of : 1945 Age: 78 y.o. Patient Active Problem List Diagnosis Diabetes mellitus ([facility]) Hypertensive urgency Arthritis Dyspnea Other forms of angina pectoris ([facility]) Unstable angina ([facility]) Obesity (BMI 30-39.9) H/O four vessel coronary artery bypass graft Paroxysmal atrial fibrillation ([facility]) Atherosclerosis of [place] coronary artery of [place] heart without angina pectoris Obesity (BMI 30-39.9) Essential hypertension Other hyperlipidemia Class 1 obesity in adult Stage 4 chronic kidney disease ([facility]) 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 She was recently hospitalized at [facility] for poorly controlled bloodpressure. Her blood pressure [...] Performed by Herrera De Paz MD at [facility] / [place] INCOMPLETE [...] min Stress: No Stress Concern Present (12/28/2020) [employer] [place] [employer] - Occupational Stress Questionnaire [...] Stage 4 chronic kidney disease ([facility]) - Basic Metabolic Panel; Future 3. 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 ([facility]) 4. Other forms of angina pectoris ([facility]) 5. Essential hypertension - Basic Metabolic Panel; Future 6. Atherosclerosis of [place] coronary artery of [place] heart without angina pectoris 7. H/O four [...] BNP. 2. Atherosclerosis of coronary arteries of [place] heart without angina pectoris. Patient has had [...] GUTIERRES MD Referring Physician: Dhruv Gutierres MD [address] [place] [address] documented in [address] [facility] [address] Charles HospitalCrittercism [facility] [id number] Miscellaneous Notes* Telephone Encounter - Cary Goldman CMA - 01/16/2024 3:49 PM EDT Called patient to remind them to bring their most current copy of their medication list with them to their appt. Patient verbalizes understanding. documented in this encounterBrec[facility]ville [facility] Telephone encounter Note* Telephone Encounter - Cary Goldman CMA - 01/16/2024 3:49 PM EDT Called patient to remind them to bring their most current copy of their medication list with them to their appt. Patient verbalizes understanding. [facility] [employer]wl [id number] Evaluation note* Encounter Date Diagnosis Assessment Notes [...] potassium improved with dietary restriction and Lasix. [employer] Other 01-29-2024 Evaluation note* Encounter Date Diagnosis Assessment Notes Treatment Notes Treatment Clinical Notes Oct, Anemia of renal disease (ICD-10 - D63.1) Oct,KD (chronic kidney disease) stage 4, GFR 15-29 ml/min (ICD-10 - N18.4) [employer] Other 01-09-2024 Evaluation note* Encounter Date Diagnosis [...] potassium improved with dietary restriction and Lasix. [employer] Other 12-04-2023 Evaluation note* Encounter Date Diagnosis [...] 4, GFR 15-29 ml/min (ICD-10 - N18.4) [employer] Other 11-21-2023 Evaluation note* Encounter Date Diagnosis Assessment Notes Treatment Notes Treatment Clinical Notes Aug, Anemia of renal disease (ICD-10 - D63.1) Aug,KD (chronic kidney disease) stage 4, GFR 15-29 ml/min (ICD-10 - N18.4) [employer] Other 11-09-2023 Evaluation note* Encounter Date Diagnosis [...] of kidney mass hydronephrosis or kidney stones. [employer] Other 10-26-2023 Evaluation note* Encounter Date Diagnosis [...] potassium improved with dietary restriction and Lasix. [employer] Other 09-18-2023 Evaluation note* Encounter Date Diagnosis [...] potassium improved with dietary restriction and Lasix. [employer] Other 08-31-2023 Evaluation note* Encounter Date Diagnosis [...] potassium improved with dietary restriction and Lasix. [employer] Other 07-25-2023 Evaluation note* Encounter Date Diagnosis [...] to normal with dietary restriction and Lasix. [employer] Other 07-01-2023 Evaluation note* Encounter Date Diagnosis Assessment Notes Treatment Notes Treatment Clinical Notes Apr, CKD (chronic kidney disease) stage 4, GFR 15-29 ml/min (ICD-10 - N18.4) Apr,nemia of renal disease (ICD-10 - D63.1) [employer] Other 06-27-2023 Evaluation note* Encounter Date Diagnosis [...] to normal with dietary restriction and Lasix. [employer] Other 06-01-2023 Evaluation note* Encounter Date Diagnosis [...] potassium diet and provide information about it. [employer] Other 03-16-2023 Evaluation note* Encounter Date Diagnosis [...] to Continue Vit D 5000 units daily [employer] Other 01-30-2023 Evaluation note* Encounter Date Diagnosis [...] to Continue Vit D 5000 units daily [employer] Other 12-22-2022 Evaluation note* Encounter Date Diagnosis [...] she is not a suitable candidate for Farxikeena, Jardiance or finerenone. Sep,econdary hyperparathyroidism (ICD-10 - N25.81)MBD parameters including PTH, calcium are phosphorus are within the goal but Vit D is low. I have advised her to Continue Vit D 5000 units daily [employer] Other 11-16-2022 Evaluation note* Encounter Date Diagnosis [...] to Continue Vit D 5000 units daily [employer] Other 08-04-2022 Evaluation note* Encounter Date Diagnosis Assessment Notes Treatment Notes Treatment Clinical Notes May, Hypertensive chronic kidney disease with stage 1 through stage 4 chronic kidney disease, or unspecified chronic kidney disease (ICD-10 - I12.9) [employer] Other 08-02-2022 Evaluation note* Encounter Date Diagnosis [...] to Continue Vit D 5000 units daily [employer] Other 07-19-2022 Evaluation note* Encounter Date Diagnosis Assessment Notes Treatment Notes Treatment Clinical Notes Apr, Hypertensive chronic kidney disease with stage 1 through stage 4 chronic kidney disease, or unspecified chronic kidney disease (ICD-10 - I12.9) [employer] Other 04-14-2022 Evaluation note* Encounter Date Diagnosis [...] to take Vit D 1000 units daily [employer] Other Evaluation noteNo InformationNort HeyAnita Other Evaluation note* Diagnosis Type 2 diabetes mellitus with hyperglycemia, with long-term current use of insulin ([facility])- Primary Vitamin D deficiency Microalbuminuria Proteinuria Hyperlipemia, mixed ([facility]) Mixed hyperlipidemia Primary hypertension ([facility]) Unspecified essential hypertension Insulin long-term use ([facility]) Encounter for long-term (current) use of insulin 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 HealthcareEvaluation note* Diagnosis Onychomycosis- Primary Dermatophytosis of nail Pain in both feet Corns and callosities Type 2 diabetes mellitus without complication, with long-term current use of insulin ([facility]) documented in this encounter [facility] HealthcareEvaluation note* Diagnosis Onychomycosis- Primary Dermatophytosis of nail Pain in both feet Corns and callosities Type 2 diabetes mellitus without complication, with long-term current use of insulin ([facility]) documented in this encounter [facility] HealthcareEvaluation note* Diagnosis Type 2 diabetes mellitus with hyperglycemia, with long-term current use of insulin ([facility] Primary Vitamin D deficiency Microalbuminuria Proteinuria Hyperlipemia, mixed ([facility]) Mixed hyperlipidemia Primary hypertension ([facility]) Unspecified essential hypertension Insulin long-term use ([facility]) Encounter for long-term (current) use of insulin 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[facility]) Chronic lymphocytic thyroiditis Encounter for dietary consultation Chronic renal disease, stage IV ([facility]) Chronic kidney disease, Stage IV (severe) documented in this encounter [facility] HealthcareEvaluation note* Diagnosis Atherosclerosis of [place] coronary artery of [place] heart without angina 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 Hypertensive urgency Shortness of breath Paroxysmal atrial fibrillation ([facility]) Atrial fibrillation Localized edema Edema documented in this encounter [facility] SystemEvaluation note* Diagnosis Paroxysmal atrial fibrillation ([facility])- Primary Atrial fibrillation Stage 4 chronic kidney disease ([facility]) 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 ([facility]) Other forms of angina pectoris ([facility]) Essential hypertension Unspecified essential hypertension Atherosclerosis of [place] coronary artery of [place] heart without angina 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 Hypertensive urgency Shortness of breath Localized edema Edema documented in this encounter [facility] SystemEvaluation note* Diagnosis Medication management- Primary documented [facility]* Diagnosis Medication management- Primary Atherosclerosis of [place] coronary artery of [place] heart without angina 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 Hypertensive urgency Shortness of breath Paroxysmal atrial fibrillation ([facility]) Atrial fibrillation Localized edema Edema documented in this encounter [facility] SystemEvaluation note* Diagnosis Onset Date Resolution Status Admit Date Anemia of renal disease acuteApr2024 8:59amAsymptomatic bacteriuriaacuteApril 2024 8:59am CKD (chronic kidney disease) stage 4, GFR 15-29 ml/minacuteApr2024 8:59amGoutacuteApril 2024 8:59amHyperlipidemiaacuteApril 2024 8:59am Hypertensive chronic kidney disease with stage 1 through stage 4 chronic kiacute Alejandra 2024 8:59amSecondary hyperparathyroidismacuteApr2024 8:59am Type 2 diabetes mellitus with diabetic chronic kidney diseaseacuteApr2024 8:59am [facility] Work Phone: Evaluation note* Diagnosis Type 2 diabetes mellitus with hyperglycemia, with long-term current use of insulin ([facility])- Primary Vitamin D deficiency Microalbuminuria Proteinuria Hyperlipemia, mixed ([facility]) Mixed hyperlipidemia Primary hypertension ([facility]) Unspecified essential hypertension Insulin long-term use ([facility]) Encounter for long-term (current) use of insulin 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[facility]) Chronic lymphocytic thyroiditis Encounter for dietary consultation Chronic renal disease, stage IV ([facility]) Chronic kidney disease, Stage IV (severe) documented in this encounter [facility] CenterEvaluation [facility]* Diagnosis Hyperlipidemia, unspecified hyperlipidemia type- Primary Atherosclerosis of [place] coronary artery of [place] heart without angina 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 Hypertensive urgency Shortness of breath Paroxysmal atrial fibrillation ([facility]) Atrial fibrillation Localized edema Edema documented in this encounter [facility] SystemEvaluation note* Diagnosis Seborrheic keratosis- Primary Seborrheic keratosis, inflamed Solar purpura Lentigines documented in this encounter [facility] HealthcareEvaluation noteNo assessment information availableUniversity Hospitals [facility] Work Phone: Evaluation note* Diagnosis [...] Stage IV (severe) documented in this encounter [facility] HealthcareEvaluation note* Diagnosis Onset Date Resolution Status Admit Date Anemia of renal disease acuteOctober 2024 9:02amAsymptomatic bacteriuriaacuteOctober 2024 9:02amCKD (chronic kidney disease) stage 4, GFR 15-29 ml/minacuteOctober 2024 9:02amGoutacuteOctober 2024 9:02amHyperlipidemiaacuteOctober 2024 9:02amHypertensive chronic kidney disease with stage 1 through stage 4 chronic kiacuteOctober 2024 9:02amSecondary hyperparathyroidismacuteOctober 2024 9:02amType 2 diabetes mellitus with diabetic chronic kidney diseaseacute July 07, 2025 9:02am [facility] Work Phone: History general Narrative - [...] WITH RECONSTRUCTION ON NOSE10/2019[facility]/2021Hospitalization HistoryELEVATED BLOOD PRESSUREHospitalization HistorySEE ABOVEHospitalization HistoryCOVID 09/2020 [employer] Other [employer] general Narrative - Reported* Type Description Date [...] WITH RECONSTRUCTION ON [facility]/2021Hospitalization HistoryELEVATED BLOOD PRESSUREHospitalization HistorySEE ABOVEHospitalization HistoryCOVID 09/2020 [employer] Other [employer] general Narrative - Reported* Type Description Date [...] CATARACTSSurgical HistorySKIN CANCER REMOVED WITH RECONSTRUCTION ON NOSE10/2019 [facility]/01/2021Hospitalization HistoryELEVATED BLOOD PRESSUREHospitalization HistorySEE ABOVEHospitalization [id number]/2020 [employer] Other History general Narrative - ReportedNort HeyAnita Other History general Narrative - Reported* Type [...] WITH RECONSTRUCTION ON [facility]/01/2021Hospitalization HistoryELEVATED BLOOD PRESSURE Hospitalization HistorySEE ABOVEHospitalization [id number]/2020 [employer] Other InstructionsNot on filedocumented in this encounter [...] for referral (narrative)No reason for referral information availableOhio[facility] Work Phone: Summary Purpose Family History No Family History Records Found Relationship Condition Age at Onset Recorded Date/T lorenzo mother Myocardial infarction Unknown fatherMalignant neoplasmUnknownbrotherMyocardial infarctionUnknownsister Myocardial infarctionUnknownbrotherHeart diseaseUnknownDiabetes mellitusUnknown fatherHypertensionUnknownDeceasedUnknownMalignant neoplasmUnknownmotherDeceased UnknownHeart diseaseUnknownsonHeart diseaseUnknownMyocardial infarctionUnknown sisterDiabetes mellitusUnknownHypertensionUnknown Advance Directives No Advanced Directives Records Found Date ActivatedDate InactivatedComments12/28/2020 2:33 PM01/03/2021 7:38 PMCode [...] and content) DATE CREATED AUTHOR 04/02/2018 The [facility] DATE CREATED AUTHOR AUTHOR'S ORGANIZ ATION 01/27/2023 [facility] DATE CREATED AUTHOR AUTHOR'S ORGANIZ ATION 01/18/2024 [facility] DATE CREATED AUTHOR AUTHOR'S ORGANIZ ATION 06/01/2025 [facility] DATE CREATED AUTHOR AUTHOR'S ORGANIZ ATION 06/15/2025 [facility] EPIC DATE CREATED AUTHOR AUTHOR'S ORGANIZ ATION 08/03/2025 [facility] REASON FOR VISIT (unrecogniz ed section and content) ReasonCommentsDiabetes MellitusFollow-upReasonCommentsSkin ProblemReasonComments Suture / Staple RemovalReasonCommentsDiabetesThyroid ProblemFollow-upReason CommentsMed RefillReasonCommentsHospital Follow-upTBH HTN AND 1 MONTH HypertensionAtrial FibrillationShortness of BreathReasonCommentsThyroid Problem Diabetes MellitusReasonCommentsDiabetesThyroid ProblemHyperlipidemia Care Teams (unrecognized sec tion and content) Team Status: Active Member Role Status Dates Dhruv Gutierres MD Primary Care Provider Active Team Status: Inactive Member Role Status Dates Dhruv Gutierres MD Primary Care Provider Active Start: April 21, 2025 End: April 21, 2025Daryl Tra Serrano ProviderActiveStart: April 21, 2025 End: April 21, 2025Team MemberRelationshipSpecialtyStart DateEnd Date Dhruv Gutierres MD [address] [place] [facility] [address] PCP - GeneralFamily Medicine10/22/23Team MemberRelationshipSpecialtyStart DateEnd Date Dhruv Gutierres MD [address] [place] [facility] [address] PCP - GeneralFamily Medicine10/22/23Team MemberRelationshipSpecialtyStart DateEnd Date Dhruv Gutierres MD [address] [place] [facility] [address] PCP - GeneralFamily Medicine10/22/23Team MemberRelationshipSpecialtyStart DateEnd Date Dhruv Gutierres MD [address] [place] [facility] [address] PCP - GeneralFamily Medicine10/22/23Team MemberRelationshipSpecialtyStart DateEnd Date Dhruv Gutierres MD [address] [place] [facility] [address] PCP - GeneralFamily Medicine10/22/23Team MemberRelationshipSpecialtyStart DateEnd Date Dhruv Gutierres MD [address] [place] [facility] [address] PCP - GeneralFamily Medicine10/22/23Team MemberRelationshipSpecialtyStart DateEnd Date Dhruv Gutierres MD [address] [place] [facility] [address] PCP - GeneralFamily Medicine10/22/23Team MemberRelationshipSpecialtyStart DateEnd Date Dhruv Gutierres MD [address] [place] [facility] [address] PCP - GeneralFamily Medicine10/22/23Team MemberRelationshipSpecialtyStart DateEnd Date Dhruv Gutierres MD [address] [facility] [address] PCP - GeneralFamily Medicine10/22/23Team MemberRelationshipSpecialtyStart DateEnd Date Dhruv Gutierres MD [address] [place] [facility] [address] PCP - GeneralFamily Medicine10/20/20Team MemberRelationshipSpecialtyStart DateEnd Date Dhruv Gutierres MD [address] [place] [address] PCP - GeneralFamily Medicine10/20/20Team MemberRelationshipSpecialtyStart DateEnd Date Dhruv Gutierres MD [address] [place] [address] PCP - GeneralFamily Medicine10/20/20Team MemberRelationshipSpecialtyStart DateEnd Date Dhruv Gutierres MD [address] [place] [facility] [address] PCP - GeneralFamily Medicine10/20/20Team MemberRelationshipSpecialtyStart DateEnd Date Dhruv Gutierres MD PCP - GeneralFamily Medicine10/20/20Team MemberRelationshipSpecialtyStart DateEnd Date Dhruv Gutierres MD PCP - GeneralFamily Medicine10/20/20Team MemberRelationshipSpecialtyStart DateEnd Date Dhruv Gutierres MD PCP - [facility]10/20/20Team MemberRelationshipSpecialtyStart DateEnd Date Dhru[facility] Gut[facility]res [facility] Team Status: Active Member Role Status Dates Dhruv Gutierres MD Primary Care Provider Active Start: January 05, 2025 Ron Doreen , MDAttending ProviderActiveStart: January 05, 2025 Team Status: Inactive Member Role Status Dates Dhruv Gutierres MD Primary Care Provider Active Start: January 14, 2025 End: January 14bdul Doreen , MDAttending ProviderActiveStart: January 14, 2025 End: January 14, 2025Team MemberRelationshipSpecialtyStart DateEnd Date Dhruv Gutierres MD [facility]10/22/23Team MemberRelationshipSpecialtyStart DateEnd Date Dhruv uGtierres MD PCP - [facility]10/22/23Team MemberRelationshipSpecialtyStart DateEnd Date Dhruv Gutierres MD PCP - [facility]10/20/20Team MemberRelationshipSpecialtyStart DateEnd Date Dhruv Gutierres MD PCP - [facility]10/22/23Team MemberRelationshipSpecialtyStart DateEnd Date Dhruv Gutierres MD PCP - [facility]10/22/23 Team Status: Inactive Member Role Status Dates Dhruv Gutierres MD Attending Provider Active Sta rt: May 25, 2025 End: May 25, 2025Team MemberRelationshipSpecialtyStart DateEnd Date Dhruv Gutierres MD PCP - [facility]10/22/23 Team Status: Active Member Role Status Dates Ron Martinez MD Attending Provider Active Start : June 29, 2025 Team Status: Inactive Member Role Status Dates Ron Martinez MD Attending Provider Active Start : July 07, 2025 End: July 07, 2025DoKrishna Brennancarraway methodist [facility]erm[facility] ProviderActiveStart: July 07, 2025 End: July 07, [...] BE BASED ON THE PRIMARY CLINICAL RECORDS. [employer] [facility]. provides no warranty or guarantee of the accuracy or completeness of information in this document.
--- NOTE | 2025-08-23 09:56 | XR_ITS ---
The [address] [address] Patient Name: KYLAH BERGER MRN: [id number] date: 1945 Sex: F Assigned Patient Location: [facility] Current Patient Location: [facility] Accession/Order Number: [id number] Exam Date: 08/23/2025 10:08 Report Date: 08/23/2025 10:59 At the request of: DHRUV GUTIERRES MD Procedure: XR chest 2V PA AND LATERAL CHEST: CLINICAL HISTORY: Cough, chest pain, shortness of breath and sore throat COMPARISON: 04/30/2025 There are median sternotomy wires. Minor atelectasis and/or scarring is noted. There is no developing consolidation, effusion or pneumothorax. The cardiac, hilar and mediastinal silhouettes are similar. There is no vascular congestion. Endplate spurring and slight dextroscoliotic curvature are present at the spine. There is compression deformity at L1 which was also seen on CT from September 2024. XR/XR chest 2V IMPRESSION: NO ACUTE CARDIOPULMONARY ABNORMALITY. Impression dictated by: Cary Good M.D. 08/23/2025 10:59 AM Dictation Location: [place] [address] Electronically authenticated by: [id number] Y Date: 08/23/2025 10:59
== END 2025-08-23 09:38 | disposition home or self-care (01) ==
LOC: RAD 09:42
PROVIDERS: PCP Family Medicine; Visit Provider Family Medicine
DX: J20.9 Acute bronchitis, unspecified (principal)
CPT/HCPCS: 71046